=== PATIENT | male | born 1965 | race African-American/Black ===

== ENCOUNTER 2017-12-27 22:29 | Inpatient (IN) | payer OTHER ==
[2017-12-27 23:14] LABS: Absolute Lymphocytes (CBC) 2.3 K/uL (0.7-4.9); Absolute Monocytes 0.7 K/uL (0.1-1.3); Absolute Neutrophil 3.4 K/uL (1.8-8.0); Basophils % 0.6 % (0-1.3); Eosinophils % 1.6 % (0-4.4); Hematocrit 43.3 % (39.6-49.0); Lymphocytes % 35.5 % (15.3-44.8); MCH 25.3 pg (27.0-35.0); MCV 77.8 fL (80-100); MPV 8.9 fL (7.6-11.3); Monocytes % 10.3 % (3.3-12.3); RBC Red Blood Cell Count 5.57 M/uL (4.33-5.43)
[2017-12-27] MEDS ORDERED: cloNIDine HCl 0.1 MG TAB ONE (23:22)
[2017-12-27 23:36] LABS: Albumin 3.9 g/dL (3.2-5.5); Bilirubin Direct 0.1 mg/dL (0-0.2); Bilirubin Total 0.6 mg/dL (0.3-1.2); Magnesium 1.9 mg/dL (1.8-2.5)
[2017-12-27 23:41] LABS: Potassium 2.7 mEq/L (3.6-5.0)
[2017-12-27] MEDS ORDERED: NA CHLORIDE 0.9% 1,000 ML ONE (23:53)
[2017-12-27] MEDS ORDERED: LABETALOL 20 MG/4ML SYRINGE IV ONE (23:53)
[2017-12-28] MEDS ORDERED: POTASSIUM 25 MEQ EFFERV TAB ONE (00:05)
--- NOTE | 2017-12-28 02:52 | EDPHYS ---
Physician Documentation [facility] Name: Bryan Watts Age: 52 yrs Sex: Male : 1965 Arrival Date: 12/27/2017 Time: 22:30 Bed 13 Private MD: ED Physician Joshua Rutledge HPI: 12/28 03:29 This 52 yrs old Black Male presents to ER via Ambulatory with complaints of Chest Pain, pm1 Headache, High Blood Pressure. 03:29 The patient or guardian reports chest pain that is located primarily in the substernal pm1 area. Onset: at 12:00. The pain does not radiate. Associated signs and symptoms: Pertinent positives: diaphoresis, headache, Pertinent negatives: abdominal pain, cough, nausea, shortness of breath, vomiting. The chest pain is described as aching. Duration: The patient or guardian reports multiple episodes, that have now resolved. Modifying factors: the symptoms are aggravated by exertion. Severity of pain: in the emergency department the pain is a 0 / 10. The patient has experienced similar episodes in the past, several times. The patient has not recently seen a physician. Patient with history of 8 total stents. Reports last placement in 1998. Historical: - Allergies: 12/27 22:44 No Known Allergies; ao - Home Meds: 22:44 amlodipine 10 mg tab 1 tab once daily [Active]; atorvastatin 80 mg Oral tab 1 tab once ao daily [Active]; carvedilol 25 mg Oral tab 1 tab 2 times per day [Active]; lisinopril 20 mg Oral tab 1 tab twice a day [Active]; hydralazine 100 mg Oral tab 1 tab 4 times per day [Active]; - PMHx: 22:44 Diabetes - IDDM; Hyperlipidemia; Hypertension; ao - PSHx: 22:44 None; ao - Immunization history:: Adult Immunizations up to date. - Social history:: Smoking status: Patient/guardian denies using tobacco, Patient/guardian denies using alcohol, street drugs. - Ebola Screening: : Patient negative for fever greater than or equal to 101.5 degrees Fahrenheit, and additional compatible Ebola Virus Disease symptoms Patient denies exposure to infectious person Patient denies travel to an Ebola-affected area in the 21 days before illness onset. ROS: 12/28 03:29 Constitutional: Negative for fever, chills, and weight loss, Eyes: Negative for injury, pm1 pain, redness, and discharge, ENT: Negative for injury, pain, and discharge, Neck: Negative for injury, pain, and swelling. Respiratory: Negative for shortness of breath, cough, wheezing, and pleuritic chest pain, Abdomen/GI: Negative for abdominal pain, nausea, vomiting, diarrhea, and constipation, Back: Negative for injury and pain, MS/Extremity: Negative for injury and deformity, Skin: Negative for injury, rash, and discoloration. Cardiovascular: Positive for chest pain, Negative for edema, orthopnea, palpitations. Neuro: Positive for headache, Negative for gait disturbance, seizure activity, weakness. Exam: 03:29 Constitutional: This is a well developed, well nourished patient who is awake, alert, pm1 and in no acute distress. Head/Face: Normocephalic, atraumatic. Eyes: Pupils equal round and reactive to light, extra-ocular motions intact. Lids and lashes normal. Conjunctiva and sclera are non-icteric and not injected. Cornea within normal limits. Periorbital areas with no swelling, redness, or edema. ENT: Nares patent. No nasal discharge, no septal abnormalities noted. Tympanic membranes are normal and external auditory canals are clear. Oropharynx with no redness, swelling, or masses, exudates, or evidence of obstruction, uvula midline. Mucous membranes moist. Neck: Trachea midline, no thyromegaly or masses palpated, and no cervical lymphadenopathy. Supple, full range of motion without nuchal rigidity, or vertebral point tenderness. No Meningismus. Chest/axilla: Normal chest wall appearance and motion. Nontender with no deformity. No lesions are appreciated. 03:29 Respiratory: Lungs have equal breath sounds bilaterally, clear to auscultation and percussion. No rales, rhonchi or wheezes noted. No increased work of breathing, no retractions or nasal flaring. Abdomen/GI: Soft, non-tender, with normal bowel sounds. No distension or tympany. No guarding or rebound. No evidence of tenderness throughout. Back: No spinal tenderness. No costovertebral tenderness. Full range of motion. Skin: Warm, dry with normal turgor. Normal color with no rashes, no lesions, and no evidence of cellulitis. MS/ Extremity: Pulses equal, no cyanosis. Neurovascular intact. Full, normal range of motion. 03:29 Cardiovascular: Rate: normal, Rhythm: Pulses: 03:29 Neuro: Orientation: is normal, Motor: is normal, moves all fours. Vital Signs: 12/27 22:42 BP 210 / 127; Pulse 98; Resp 22; Temp 98.0(O); Pulse Ox 98% on R/A; Weight 150.59 kg ao (R); Height 6 ft. (182.88 cm); Pain 8/10; 23:15 BP 183 / 119; Pulse 96; Resp 14; Pulse Ox 96% on R/A; bp 12/28 00:00 BP 191 / 117; Pulse 86; Resp 16; Pulse Ox 96% ; bp 01:00 BP 147 / 107; Pulse 86; Resp 14; Pulse Ox 96% ; bp 02:15 BP 148 / 101; Pulse 81; Resp 16; Pulse Ox 96% on R/A; bp 03:21 BP 136 / 91; Pulse 82; Resp 14; Pulse Ox 95% ; bp 04:30 BP 163 / 113; Pulse 77; Resp 16; Pulse Ox 97% ; bp 05:30 BP 151 / 112; Pulse 78; Resp 14; Pulse Ox 97% ; bp 12/27 22:42 Body Mass Index 45.03 (150.59 kg, 182.88 cm) ao MDM: 12/27 22:43 Patient medically screened. pm1 12/28 02:49 Data reviewed: vital signs. Data interpreted: Pulse oximetry: on room air is 96 %. pm1 Interpretation: normal. Counseling: I had a detailed discussion with the patient and/or guardian regarding: the historical points, exam findings, and any diagnostic results supporting the discharge/admit diagnosis, lab results, radiology results, the need for further work-up and treatment in the hospital. 03:05 ED course: Patient with report of chest pain at rest while in bed. EKG repeated and ST pm1 changes present to leads V1 and V2. 03:20 ED course: Patient chest pain free after nitro sl x 1. pm1 03:22 Physician consultation: Silviano Grimes MD was called at 03:22, was contacted at 03:22, pm1 regarding consult, patient's condition, would like medications started, Lovenox Renal dosage. No plavix and he will see him in a few hours today. 03:28 Physician consultation: Yared Larios MD was called at 03:29, was contacted at 03:29, pm1 regarding admission, patient's condition. 12/27 22:48 Order name: Basic Metabolic Panel; Complete Time: 23:45 pm1 12/27 22:48 Order name: BNP; Complete Time: 23:38 pm1 12/27 22:48 Order name: CBC with Diff; Complete Time: 23:38 pm1 12/27 22:48 Order name: Ckmb; Complete Time: 23:45 pm1 12/27 22:48 Order name: CPK; Complete Time: 23:45 pm1 12/27 22:48 Order name: LFT's; Complete Time: 23:45 pm1 12/27 22:48 Order name: Magnesium; Complete Time: 23:45 pm12/27 22:48 Order name: PT-INR; Complete Time: 23:38 pm1 12/27 22:48 Order name: Ptt, Activated; Complete Time: 23:38 pm12/27 22:48 Order name: Troponin (emerg Dept Use Only); Complete Time: 23:38 pm12/27 22:48 Order name: XRAY Chest (1 view) pm12/27 22:49 Order name: CT Head Brain wo Cont pm12/28 00:10 Order name: CT Aorta for Dissection 12/27 22:48 Order name: EKG; Complete Time: 22:48 pm1 12/27 22:48 Order name: Cardiac monitoring; Complete Time: 22:48 pm1 12/27 22:48 Order name: EKG - Nurse/Tech; Complete Time: 22:48 pm12/27 22:48 Order name: IV Saline Lock; Complete Time: 23:17 pm12/27 22:48 Order name: Labs collected and sent; Complete Time: 23:17 pm1 12/27 22:48 Order name: O2 Per Protocol; Complete Time: 22:48 pm12/27 22:48 Order name: O2 Sat Monitoring; Complete Time: 22:48 pm1 Administered Medications: 12/27 23:23 Drug: cloNIDine 0.2 mg Route: PO; bp 23:58 Follow up: Response: No adverse reaction bp 23:56 Drug: Labetalol 20 mg Route: IVP; Infused Over: 2 mins; Site: right antecubital; bp 23:57 Follow up: Response: No adverse reaction bp 23:57 Drug: NS 0.9% 1000 ml Route: IV; Rate: 1 bolus; Site: right antecubital; bp 12/28 03:20 Follow up: IV Status: Completed infusion; IV Intake: 1000ml bp 00:18 Drug: Potassium Effervescent Tablet 50 mEq Route: PO; bp 00:19 Follow up: Response: No adverse reaction bp 03:19 Drug: Aspirin 325 mg Route: PO; bp 03:20 Follow up: Response: No adverse reaction bp 03:19 Drug: Nitroglycerin 0.4 mg Route: Sublingual; bp 03:20 Follow up: Response: Pain is decreased bp 03:37 Drug: Lovenox 100 mg Route: Sub-Q; Site: right lower abdomen; bp 03:37 Follow up: Response: No adverse reaction bp Disposition: 12/28/17 02:51 Hospitalization ordered by Yared Larios for Observation. Preliminary diagnosis are Chest pain, unspecified, Hypokalemia, Rhabdomyolysis. - Bed requested for Telemetry/MedSurg (observation). - Status is Observation. bp - Condition is Stable. - Problem is new. - Symptoms have improved. UTI on Admission? No Addendum: 12/31/2017 09:02 Co-signature as Attending Physician, Joshua Rutledge MD I agree with the assessment and w a plan of care. Signatures: Dispatcher [employer] [facility] Krystina Mckeon RN RN mw Ortiz, Alex RN Myron Cantu, OPHTHALMIC ASST OPHTHALMIC ASST pm1 Joshua Rutledge MD MD wa Peltier, Brian RN RN bp Corrections: (The following items were deleted from the chart) 12/28 00:17 12/27 23:54 Chest Angio+CT.RAD.BRZ ordered. [facility] 12/28 02:56 02:51 Hospitalization Ordered by Yared Larios MD for Observation. Preliminary mw diagnosis is Chest pain, unspecified; Hypokalemia; Rhabdomyolysis. Bed requested for Telemetry/MedSurg (observation). Status is Observation. Condition is Stable. Problem is new. Symptoms have improved. UTI on Admission? No. pm1 05:45 02:56 12/28/2017 02:51 Hospitalization Ordered by Yared Larios MD for Observation. bp Preliminary diagnosis is Chest pain, unspecified; Hypokalemia; Rhabdomyolysis. Bed requested for Telemetry/MedSurg (observation). Status is Observation. Condition is Stable. Problem is new. Symptoms have improved. UTI on Admission? No. mw
--- NOTE | 2017-12-28 02:52 | ER ---
Nurse's Notes [facility] Name: Bryan Watts Age: 52 yrs Sex: Male : 1965 Arrival Date: 12/27/2017 Time: 22:30 Bed 13 Private MD: Diagnosis: Chest pain, unspecified;Hypokalemia;Rhabdomyolysis Presentation: 12/27 22:40 Presenting complaint: Patient states: "I was at home and my blood pressure was 220/146 ao then my chest started to hurt and I got a headache." Patient also reports being diaphoretic. Transition of care: patient was not received from another setting of care. Onset of symptoms was December 27, 2017 at 20:00. Risk Assessment: Do you want to hurt yourself or someone else? Patient reports no desire to harm self or others. Initial Sepsis Screen: Does the patient meet any 2 criteria? No. Patient's initial sepsis screen is negative. Does the patient have a suspected source of infection? No. Patient's initial sepsis screen is negative. Care prior to arrival: None. 22:40 Method Of Arrival: Ambulatory ao 22:40 Acuity: GABBY 3 ao Triage Assessment: 22:46 General: Appears in no apparent distress. Behavior is calm, cooperative. Pain: ao Complains of pain in chest and headache. Cardiovascular: Patient's skin is warm and dry. Historical: - Allergies: 22:44 No Known Allergies; ao - Home Meds: 22:44 amlodipine 10 mg tab 1 tab once daily [Active]; atorvastatin 80 mg Oral tab 1 tab once ao daily [Active]; carvedilol 25 mg Oral tab 1 tab 2 times per day [Active]; lisinopril 20 mg Oral tab 1 tab twice a day [Active]; hydralazine 100 mg Oral tab 1 tab 4 times per day [Active]; - PMHx: 22:44 Diabetes - IDDM; Hyperlipidemia; Hypertension; ao - PSHx: 22:44 None; ao - Immunization history:: Adult Immunizations up to date. - Social history:: Smoking status: Patient/guardian denies using tobacco, Patient/guardian denies using alcohol, street drugs. - Ebola Screening: : Patient negative for fever greater than or equal to 101.5 degrees Fahrenheit, and additional compatible Ebola Virus Disease symptoms Patient denies exposure to infectious person Patient denies travel to an Ebola-affected area in the 21 days before illness onset. Screenin:45 Abuse screen: Denies threats or abuse. Denies injuries from another. Nutritional ao screening: No deficits noted. Tuberculosis screening: No symptoms or risk factors identified. Fall Risk None identified. Assessment: 22:47 Pain: Pain does not radiate. Pain began 3 hours ago. ao 23:00 General: Appears in no apparent distress. comfortable, obese, Behavior is cooperative, bp appropriate for age, anxious. Neuro: Level of Consciousness is awake, alert, obeys commands, Oriented to person, place, time, situation, Appropriate for age. Cardiovascular: Chest pain is described as mild, quality is heaviness, is located in substernal area began 4 hours prior to arrival episodes are intermittent. Respiratory: Airway is patent Respiratory effort is even, unlabored, Respiratory pattern is regular, symmetrical. GI: No signs and/or symptoms were reported involving the gastrointestinal system. : No signs and/or symptoms were reported regarding the genitourinary system. EENT: No deficits noted. Derm: No deficits noted. Musculoskeletal: Circulation, motion, and sensation intact. Range of motion: intact in all extremities. 12/28 00:00 Reassessment: CT PENDING, ABNORMAL LABS RELAYED TO PROVIDER. bp 01:00 Reassessment: PT RETURNED FROM CT, ALL CURRENT ORDERS COMPLETED, RESULTS PENDING. bp 03:21 Reassessment: PT C/O ACUTE CP, AFFIRMS RELIEF OF S/S WITH NGT SL. bp 04:30 Reassessment: ADMIT IN PROCESS, AWAITING ADMIT MD AND ORDERS. PT CP FREE AT THIS TIME. bp 05:44 Reassessment: ADMIT COMPLETE, PT IRAJ FOR 206, DX WITH HYPOKALEMIA, CHEST PAIN AND bp RHABDOMYOLYSIS. Vital Signs: 12/27 22:42 BP 210 / 127; Pulse 98; Resp 22; Temp 98.0(O); Pulse Ox 98% on R/A; Weight 150.59 kg ao (R); Height 6 ft. (182.88 cm); Pain 8/10; 23:15 BP 183 / 119; Pulse 96; Resp 14; Pulse Ox 96% on R/A; bp 12/28 00:00 BP 191 / 117; Pulse 86; Resp 16; Pulse Ox 96% ; bp 01:00 BP 147 / 107; Pulse 86; Resp 14; Pulse Ox 96% ; bp 02:15 BP 148 / 101; Pulse 81; Resp 16; Pulse Ox 96% on R/A; bp 03:21 BP 136 / 91; Pulse 82; Resp 14; Pulse Ox 95% ; bp 04:30 BP 163 / 113; Pulse 77; Resp 16; Pulse Ox 97% ; bp 05:30 BP 151 / 112; Pulse 78; Resp 14; Pulse Ox 97% ; bp 12/27 22:42 Body Mass Index 45.03 (150.59 kg, 182.88 cm) ao ED Course: 12/27 22:30 Patient arrived in ED. al2 22:37 Sha Araujo, RN is Primary Nurse. bp 22:42 Triage completed. ao 22:42 Arm band placed on right wrist. Patient placed in an exam room, on a stretcher, on ao oxygen, on quality assurance monitor, on pulse oximetry, Patient notified of wait time. 22:43 Myron Ambrosio NP is PHCP. pm1 22:43 Joshua Rutledge MD is Attending Physician. pm1 22:46 Patient has correct armband on for positive identification. quality assurance monitor on. Pulse ao ox on. NIBP on. 22:47 Patient maintains SpO2 saturation greater than 95% on room air. ao 23:02 XRAY Chest (1 view) In Process Unspecified. EDMS 23:18 Inserted saline lock: 20 gauge in right antecubital area, using aseptic technique. bp Blood collected. 12/28 01:14 CT completed. Patient tolerated procedure well. Patient moved to CT via wheelchair. Patient moved back from CT. 01:23 CT Head Brain wo Cont In Process Unspecified. EDMS 01:24 CT Aorta for Dissection In Process Unspecified. EDMS 02:50 Yared Larios MD is Hospitalizing Provider. pm1 03:22 No provider procedures requiring assistance completed. Patient admitted, IV remains in bp place. Administered Medications: 12/27 23:23 Drug: cloNIDine 0.2 mg Route: PO; bp 23:58 Follow up: Response: No adverse reaction bp 23:56 Drug: Labetalol 20 mg Route: IVP; Infused Over: 2 mins; Site: right antecubital; bp 23:57 Follow up: Response: No adverse reaction bp 23:57 Drug: NS 0.9% 1000 ml Route: IV; Rate: 1 bolus; Site: right antecubital; bp 12/28 03:20 Follow up: IV Status: Completed infusion; IV Intake: 1000ml bp 00:18 Drug: Potassium Effervescent Tablet 50 mEq Route: PO; bp 00:19 Follow up: Response: No adverse reaction bp 03:19 Drug: Aspirin 325 mg Route: PO; bp 03:20 Follow up: Response: No adverse reaction bp 03:19 Drug: Nitroglycerin 0.4 mg Route: Sublingual; bp 03:20 Follow up: Response: Pain is decreased bp 03:37 Drug: Lovenox 100 mg Route: Sub-Q; Site: right lower abdomen; bp 03:37 Follow up: Response: No adverse reaction bp Intake: 03:20 IV: 1000ml; Total: 1000ml. bp Outcome: 02:51 Decision to Hospitalize by Provider. pm1 05:40 Admitted to Tele accompanied by tech, via wheelchair, room 206, with chart, Report bp called to RA BAKER 05:40 Condition: stable 05:40 Instructed on the need for admit. 05:45 Patient left the ED. bp Signatures: Dispatcher [employer] EDMS Diallo Wilson Alex, RN RN Myron Funez, BALCONY WORKER BALCONY WORKER pm1 Sha Araujo RN RN bp Love, Angelica al2 Corrections: (The following items were deleted from the chart) 01:08 00:00 BP 131 / 117; Pulse 86bpm; Resp 16bpm; Pulse Ox 96%; bp bp 04:45 04:43 Reassessment: ADMIT IN PROCESS, AWAITING ADMIT MD AND ORDERS. PT CP FREE AT THIS bp TIME bp
[2017-12-28] MEDS ORDERED: ASPIRIN 325 MG TAB ONE (03:08)
[2017-12-28] MEDS ORDERED: ENOXAPARIN 100 MG/ML SYR SQ ONE (03:35)
[2017-12-28] MEDS ORDERED: ACETAMINOPHEN 500 MG TAB PO PRN (04:06)
[2017-12-28] MEDS ORDERED: MORPHINE 4 MG/ML SYR IV PRN (04:06)
[2017-12-28] MEDS ORDERED: ALPRAZOLAM 0.25 MG TABLET PO PRN (04:06)
--- NOTE | 2017-12-28 07:57 | P.HP ---
Certification for Inpatient Patient admitted to: Observation With expected LOS: <2 Midnights Patient will require the following post-hospital care: None Practitioner: I am a practitioner with admitting privileges, knowledge of patient current condition, hospital course, and medical plan of care. Services: Services provided to patient in accordance with Admission requirements found in Title 42 Section 412.3 of the Code of Federal Regulations Patient History Date of Service: 12/28/17 Reason for admission: Chest pain rule out acute coronary syndrome History of Present Illness: Patient is a 52-year-old gentleman who came to the hospital with chest pain and elevated blood pressure. Patient's pain was in the sternal region but he denies any radiation. However, he did have diaphoresis as well as nausea and vomiting. Patient was also short of breath. Patient had pain like this in the past and he has had a history of coronary artery disease with stent placement x8. Patient states his chest pain is resolved. He was having an in the sternal region and it was some reproducible but it is completely gone after medicine in the emergency room. Patient does have mild numerous risk factors so will go ahead and monitor him overnight. We will do serial troponins as well as an EKG in the morning. If there is no significant change in patient's status and his chest pain is no longer occurring then we will be able to discharge him home later today. Allergies No Known Drug Allergies Allergy (Verified 12/28/15 04:34) Unknown Home Medications: Aspirin 81 mg PO DAILY 01/28/12 Amlodipine Besylate 10 mg PO DAILY 05/27/12 Atorvastatin Calcium [Lipitor*] 80 mg PO BEDTIME 10/18/15 Carvedilol [Coreg*] 25 mg PO BID 10/18/15 Hydrochlorothiazide [Hydrodiuril*] 25 mg PO DAILY 10/18/15 Metformin HCl [Glucophage*] 500 mg PO BID 10/18/15 Nitroglycerin 0.4 mg SL PRN 10/19/15 Ciprofloxacin HCl [Cipro 500 MG Tablet] 500 mg PO BID #20 tab 11/27/15 Metronidazole 500 mg PO TID #30 tablet 11/27/15 Hydralazine [Apresoline*] 100 mg PO QID 01/28/17 Lisinopril [Prinivil*] 20 mg PO BID 01/28/17 Doxazosin [Cardura*] 2 mg PO BID #60 tab 01/29/17 Furosemide [Lasix] 40 mg PO DAILY #30 tab 01/29/17 Potassium Chloride 20 meq PO BID #60 tab.er.prt 01/29/17 - Past Medical/Surgical History Has patient received pneumonia vaccine in the past: No Diabetic: Yes -: DM -: HTN -: CAD -: Coronary artery stent -: RIGHT KNEE SX -: ARTIFICIAL LEFT EYE -: Cardiac catherization with stent - Family History Father Medical History: Heart disease, Hypertension - Social History Smoking Status: Never smoker Alcohol use: No CD- Drugs: No Caffeine use: Yes Place of Residence: Home Review of Systems 10-point ROS is otherwise unremarkable Physical Examination - Vital Signs Temperature: 97.8 F Blood Pressure: 132/81 Pulse: 77 Respirations: 16 Pulse Ox (%): 98 - Physical Exam General: Alert, In no apparent distress, Oriented x3 HEENT: Atraumatic, PERRLA, Mucous membr. moist/pink, EOMI, Sclerae nonicteric Neck: Supple, 2+ carotid pulse no bruit, No LAD, Without JVD or thyroid abnormality Respiratory: Clear to auscultation bilaterally, Normal air movement Cardiovascular: Regular rate/rhythm, Normal S1 S2, No murmurs Gastrointestinal: Normal bowel sounds, Soft and benign, Non-distended, No tenderness Musculoskeletal: No clubbing, No swelling, No tenderness Integumentary: No rashes Neurological: Normal gait, Normal speech, Normal strength at 5/5 x4 extr, Normal tone, Sensation intact, Cranial nerves 3-12 intact, Normal affect Lymphatics: No axilla or inguinal lymphadenopathy - Studies Laboratory Data (last 24 hrs) 12/27/17 23:03: PT 11.8, INR 1.00, APTT 26.5 12/27/17 23:03: WBC 6.5, Hgb 14.1, Hct 43.3, Plt Count 204 12/27/17 23:03: B-Natriuretic Peptide 38 12/27/17 23:03: Sodium 140, Potassium 2.7 L*, BUN 19, Creatinine 1.49 H, Glucose 94, Magnesium 1.9, Total Bilirubin 0.6, AST 33, ALT 28, Alkaline Phosphatase 59 Assessment & Plan - Problems (Diagnosis) (1) Chest pain, rule out acute myocardial infarction Current Visit: Yes Status: Acute (2) DM2 (diabetes mellitus, type 2) Onset Date: 01/28/17 Current Visit: No Status: Acute (3) HTN (hypertension) Onset Date: 01/28/17 Current Visit: No Status: Acute (4) Hyperlipidemia Onset Date: 11/26/15 Current Visit: No Status: Acute (5) CAD (coronary artery disease) Current Visit: No Status: Chronic Qualifiers: (6) Diabetes mellitus type II, non insulin dependent Onset Date: 11/26/15 Current Visit: No Status: Chronic (7) Morbid obesity due to excess calories Current Visit: No Status: Chronic - Plan 1. Serial troponins and EKG 2. Cardiology consultation 3. Echocardiogram and if no significant abnormality then further workup at discharge 4. Anti-platelet therapy, anticoagulation, beta-brii, statin, and O2 as needed 5. IV morphine for pain 6. Nitro p.r.n. Discharge Plan: Home Plan to discharge in: 24 Hours - Advance Directives Does patient have a Living Will: No Does patient have a Durable POA for Healthcare: No - Code Status/Comfort Care Code Status Assessed: Yes Code Status: Full Code Critical Care: No Time Spent Managing PTS Care (In Minutes): 50
--- NOTE | 2017-12-28 08:50 | RAD REPORT ---
EXAM DESCRIPTION: RAD - Chest Single View - 12/27/2017 11:02 pm CLINICAL HISTORY: Chest pain, hypertension COMPARISON: January 2017 TECHNIQUE: AP portable chest image was obtained 2300 hours . FINDINGS: No acute lung parenchymal process. Left base is limited by body habitus, portable techniqu e and motion. Significant left base finding is doubtful. No failure or volume overload. Heart and vas culature are normal. No measurable pleural effusion and no pneumothorax. No gross bony abnormality se en. No acute aortic findings suspected. IMPRESSION: No acute cardiopulmonary process. No significant change from comparison.
--- NOTE | 2017-12-28 09:02 | RAD REPORT ---
EXAM DESCRIPTION: CT - Head Brain Wo Cont - 12/28/2017 3:15 am CLINICAL HISTORY: Headache, hypertension A preliminary written report was provided at the time of the study, and the report was reviewed prio r to final dictation. COMPARISON: September 23, 2017 TECHNIQUE: Axial 5 mm thick images of the head were obtained without IV contrast. All CT scans are performed using dose optimization technique as appropriate and may include automated exposure control or mA/KV adjustment according to patient size. FINDINGS: No intracranial hemorrhage, mass, edema or shift of mid-line structures. No acute cortical based infarction. No cortical edema or sulcal effacement. Cerebral white matter disease is present s imilar to the prior study. Ventricles are normal. No abnormal extra-axial fluid collections. Intracra nial findings are similar to comparison. Mastoid air cells and visualized portions of the paranasal sinuses are clear. No acute bony findings. Left globe prosthesis in place. IMPRESSION: Advanced for age white matter disease most likely chronic ischemic change. No acute intracranial finding seen and intracranial findings are similar to the September comparison.
--- NOTE | 2017-12-28 09:11 | RAD REPORT ---
EXAM DESCRIPTION: CT - Angio Aorta For Dissection - 12/28/2017 3:19 am CLINICAL HISTORY: Chest pain, abdominal pain COMPARISON: CT study 2011 TECHNIQUE: Dynamically enhanced 3 mm thick images of the chest, abdomen, and upper pelvis were obtai carlito during administration of approximately 150mL Isovue 370 IV contrast. Sagittal and coronal reconst ruction images were generated and reviewed. Exam utilizes a protocol to evaluate entire course of the aorta. All CT scans are performed using dose optimization technique as appropriate and may include automated exposure control or mA/KV adjustment according to patient size. FINDINGS: Aorta is normal in diameter with no dissection or other acute aortic findings. Reconstruct ion images show no significant findings. Pulmonary arteries are normal as well. No cardiomegaly, pericardial thickening or pericardial effusio n. No mass or infiltrate in the lung parenchyma. No pleural thickening, pleural effusion or pneumothorax . No abnormal mediastinal or hilar mass or lymphadenopathy seen. No chest wall mass or abnormal axillar y lymphadenopathy. Celiac, SMA and renal arteries show no suspicious findings. No acute finding of the solid abdominal v isceral. Patient has a prominent sigmoid diverticulosis. There is a trace amount of stranding in the fat adjacent to the tortuous sigmoid colon. Finding is not definitive for diverticulitis. Patient can be monitored with follow-up imaging as warranted. No mass or abnormal lymphadenopathy. No free air, free fluid or other area of possible inflammatory stranding. It is very small umbilical and bilatera l inguinal fat only hernias seen. Urinary bladder is contracted limiting detail. Thoracolumbar scoliosis present without acute bone finding. IMPRESSION: No dissection, aneurysm or acute aortic finding. No acute finding on CT chest imaging. Prominent diverticulosis of a tortuous and redundant sigmoid colon. Trace stranding is seen in the ad jacent fat. Early diverticulitis is doubtful but can be correlated with clinical findings.
[2017-12-28] MEDS: ENOXAPARIN 40 MG/0.4 ML SQ SCH (09:39)
[2017-12-28] MEDS: METOPROLOL TAR 50 MG TAB PO SCH ×2 (09:39→20:27)
[2017-12-28] MEDS: ASPIRIN 325 MG TAB PO SCH (09:39)
[2017-12-28 09:58] LABS: Urine Appearance CLEAR; Urine Bilirubin NEGATIVE (NEG); Urine Blood NEGATIVE (NEG); Urine Color YELLOW; Urine Glucose NEGATIVE (NEG); Urine Protein 2+ (NEG); Urine Specific Gravity >=1.030 (1.005-1.030); Urine pH 5.5 (5.0-7.0)
[2017-12-28 10:40] LABS: Urine Bacteria <20 /HPF (NONE SEEN); Urine Culture Reflex Order NOT NEEDED; Urine Microscopic Reflex ORDER UMIC; Urine RBC <5 /HPF (NONE SEEN)
[2017-12-28 11:08] LABS: Absolute Lymphocytes (CBC) 2.1 K/uL (0.7-4.9); Absolute Monocytes 0.5 K/uL (0.1-1.3); Absolute Neutrophil 2.4 K/uL (1.8-8.0); Basophils % 0.7 % (0-1.3); Eosinophils % 1.4 % (0-4.4); Hematocrit 40.3 % (39.6-49.0); Lymphocytes % 40.7 % (15.3-44.8); MCH 24.9 pg (27.0-35.0); MCV 78.4 fL (80-100); MPV 8.7 fL (7.6-11.3); Monocytes % 9.9 % (3.3-12.3); RBC Red Blood Cell Count 5.14 M/uL (4.33-5.43)
[2017-12-28 11:34] LABS: Magnesium 1.9 mg/dL (1.8-2.5); Phosphorus 3.8 mg/dL (2.5-4.3); Potassium 3.2 mEq/L (3.6-5.0)
--- NOTE | 2017-12-28 12:44 | EKG ---
Test Date: 2017-12-28 Test Time: 07:57:31 Transcriber: TERENCE MEASUREMENT RESULTS: Intervals: Rate: 69 [place]: 278 QRSD: 122 QT: 486 QTc: 520 [place]: P: 69 [place]: 278 QRS: -41 T: 62 INTERPRETIVE STATEMENTS: Sinus rhythm with 1st degree AV block Left axis deviation Nonspecific intraventricular conduction delay Abnormal ECG Electronically Signed On 12-28-17 12:43:18 CDT by Silviano Grimes Compared to ECG 12/28/2017 03:05:15 Intraventricular conduction delay now present Myocardial infarct finding no longer present Prolonged QT interval no longer present Electronically Signed On 12-29-17 14:59:16 CDT by Silviano Grimes
--- NOTE | 2017-12-28 12:45 | EKG ---
Test Date: 2017-12-28 Test Time: 03:05:15 Forestry Foreman: DASHA MEASUREMENT RESULTS: Intervals: Rate: 82 VT: 252 QRSD: 114 QT: 442 QTc: 516 [place]: P: 61 [place]: 252 QRS: -42 T: 67 INTERPRETIVE STATEMENTS: Sinus rhythm with 1st degree AV block Left axis deviation Pulmonary disease pattern Inferior infarct, age undetermined Prolonged QT Abnormal ECG Electronically Signed On 12-28-17 12:43:25 CDT by Silviano Grimes Compared to ECG 12/27/2017 22:43:03 Prolonged QT interval now present Sinus tachycardia no longer present Myocardial infarct finding still present Electronically Signed On 12-29-17 14:59:17 CDT by Silviano Grimes
--- NOTE | 2017-12-28 13:47 | CON ---
Date of Consultation: 12/28/[address] Larios's service on 12/28/2017. I saw the patient on 12/28/2017. Reason For Consultation: Chest pain, hypertension, and headaches. History Of Present Illness: Mr. Watts is a 52-year-old black male, who has a history of hypertensio n, dyslipidemia, diabetes, and noncompliance to therapy. Had a heart catheterization approximately 2 years ago that showed no significant coronary artery disease, but he stated that since then he has h ad 8 stents placed. The last of which was about a year ago. These were done at [facility] according to the patient. He came in with substernal chest pressure radiating to the jaw and the back and the arms with dyspnea on exertion, headache, and severely controlled blood pressure at home of 220/146. No syncope or palpitations. Denied PND, orthopnea. Has had some pedal edema. Claimed that he is co mpliant with his medicines. Past Medical History: As stated above. Allergies: NONE. Review of Systems: Negative. Social History: Negative. Family History: Noncontributory. Physical Examination: Vital Signs: Improved. His blood pressure was better, was still elevated at 160/84. He was sinus r hythm. HEENT: Negative. Neck: Supple without any bruit, lymphadenopathy, JVD, or thyromegaly. Chest: Clear to auscultation and percussion. Cardiac: Exam revealed a regular rhythm and rate with an S4 gallops. No murmurs or rubs. Abdomen: Obese, but benign. Extremities: Revealed no clubbing, cyanosis. He had 1+ edema. Diagnostic Data: Showed a creatinine 1.49, potassium was 2.7. CPK was 1109, MB was negative. Tropo santos was negative. EKG showed severe left ventricular hypertrophy. Echocardiogram approximately a ye ar ago showed left ventricular hypertrophy. He had a negative Lexiscan then. Impression And Plan: 1.Acute coronary syndrome. Symptoms consistent with unstable angina. According to the patient, he has had some 8 stents placed in the last 2 years, although in 2016, a heart catheterization was luna l. Nevertheless, his symptoms are concerning enough that I think a heart catheterization is indicate d to rule out coronary artery disease. The patient understands the risk and the benefit of the proce dure and he agrees to proceed. 2.Hypokalemia that needs to be corrected. 3.Blood pressure, poorly controlled. We need to make sure he takes his medication. 4.Polypharmacy. I am not so sure he needs to take Lasix and hydrochlorothiazide. He needs to proba chase stop the hydrochlorothiazide that maybe was causing his hypokalemia. His other problems include dyslipidemia and diabetes. Both of those are fairly well controlled. 5.Mr. Watts' other major problem is morbid obesity, he weighs 340 pounds. We will see what his hea rt catheterization shows prior to making final decisions. AMINATA/RIAZ Voice ID: [id number] Report ID: [id number]
--- NOTE | 2017-12-28 14:34 | PN ---
Date of Progress Note: 12/28/2017 Subjective: The patient seen and examined. Chart reviewed and case discussed with RN and Dr. Florinda fitzpatrick. The patient states his chest pain has improved. No nausea, vomiting, or shortness of breath. Review of Systems: Negative except as above. Medications: Reviewed. Physical Examination: Vital Signs: Temperature 98.2, heart rate 74, blood pressure 158/92, respirations 18, O2 92% on room air. General: Awake, alert, oriented x3, in some mild distress. Ill-appearing, obese male. BMI 43. CV: S1, S2. Regular rate and rhythm. Peripheral pulses present. No murmurs. Respiratory: Clear to auscultation bilaterally. No wheezing. No stridor. No use of accessory musc les. Gastrointestinal: Abdomen is soft, nontender, nondistended. Obese. Positive bowel sounds. Extremities: No clubbing, cyanosis, edema. Neurologic: Nonfocal. Laboratory Data: Sodium 138, potassium 3.2, chloride 102, CO2 31, BUN 19, creatinine 1.21, glucose 1 12, calcium 8.5, phosphorus 3.8, magnesium 1.9. Troponin less than 0.03 x2. Triglycerides 188, chol esterol 192, LDL 115, HDL 39. WBC 5.1, H and H 12.8, 40.3, platelets 191. EKG shows sinus rhythm, r ate of 82, first-degree AV block, prolonged QT. Assessment: A 52-year-old male with; 1.Unstable angina. We will continue with chest pain guidelines. Appreciate Dr. Grimes's input. T he patient is going for heart catheterization in a.m. 2.Diabetes mellitus type 2 non-insulin requiring with hyperglycemia. Continue sliding scale. Macrina nue Accu-Cheks. 3.Essential hypertension. Resume home medications as appropriate. 4.Dyslipidemia. Continue statin. 5.Coronary artery disease, mary[place] artery and mary[place] ig[place] heart with angina. 6.Morbid obesity, BMI 43. 7.Hypertensive heart disease. Left ventricular hypertrophy is present. 8.Gastrointestinal and deep venous thrombosis prophylaxis addressed. Plan: Heart catheterization in a.m. SA/MODL Voice ID: [id number] Report ID: [id number]
[2017-12-29] MEDS: METOPROLOL TAR 50 MG TAB PO SCH ×2 (04:00→08:43)
[2017-12-29 05:21] LABS: Potassium 3.6 mEq/L (3.6-5.0)
[2017-12-29 06:35] VITALS: BMI 42.9
[2017-12-29] MEDS: ASPIRIN 325 MG TAB PO SCH (08:43)
[2017-12-29] MEDS: ENOXAPARIN 40 MG/0.4 ML SQ SCH (08:50)
[2017-12-29] MEDS ORDERED: ACETYLCYST 20% 800 MG/4 ML VIAL PO SCH (09:00)
[2017-12-29] MEDS ORDERED: LIDOCAINE 1% 20 ML MDV ONE (14:11)
[2017-12-29] MEDS ORDERED: HEPA 1000U/500MLS 1,000 UNIT/500 ML BAG IV ONE (14:11)
[2017-12-29] MEDS ORDERED: NA CHLORIDE 0.9% 0 ML ONE (14:12)
[2017-12-29] MEDS ORDERED: MIDAZOLAM HCL 2 MG/2 ML INJ ONE (14:12)
[2017-12-29] MEDS ORDERED: FENTANYL CITR 100 MCG/2 ML ONE (14:12)
[2017-12-29] MEDS ORDERED: NA CHLORIDE 0.9% 500 ML ONE (14:13)
[2017-12-29] MEDS ORDERED: cloNIDine HCl 0.1 MG TAB ONE (14:34)
--- NOTE | 2017-12-29 15:01 | EKG ---
Test Date: 2017-12-29 Test Time: 09:35:07 Sourcing Assistant: REYNALDO MEASUREMENT RESULTS: Intervals: Rate: 71 VT: 254 QRSD: 126 QT: 458 QTc: 497 [place]: P: 76 [place]: 254 QRS: 42 T: 70 INTERPRETIVE STATEMENTS: Sinus rhythm with 1st degree AV block Nonspecific intraventricular block Abnormal ECG Compared to ECG 12/28/2017 07:57:31 Left-axis deviation no longer present Intraventricular conduction delay no longer present Electronically Signed On 12-29-17 14:59:04 CDT by Silviano Grimes
--- NOTE | 2017-12-29 15:03 | EKG ---
Test Date: 2017-12-27 Test Time: 22:43:03 Accounts Payable Payroll Coordinator: BP MEASUREMENT RESULTS: Intervals: Rate: 101 MO: 212 QRSD: 120 QT: 366 QTc: 474 [place]: P: 77 [place]: 212 QRS: -36 T: 70 INTERPRETIVE STATEMENTS: Sinus tachycardia with 1st degree AV block Possible Left atrial enlargement Left axis deviation RSR' or QR pattern in V1 suggests right ventricular conduction delay Possible Inferior infarct, age undetermined Abnormal ECG Electronically Signed On 12-28-17 12:43:36 CDT by Silviano Grimes Compared to ECG 09/23/2017 13:18:50 Left-axis deviation now present RSR' in V1 or V2 now present Sinus rhythm no longer present Left anterior fascicular block no longer present Left ventricular hypertrophy no longer present Myocardial infarct finding still present Electronically Signed On 12-29-17 14:59:18 CDT by Silviano Grimes
[2017-12-29 15:40] VITALS: TEMP 97
[2017-12-29 16:24] VITALS: BP 172/92; O2SAT 95
--- NOTE | 2017-12-30 02:49 | DS ---
Date of Discharge: 12/29/2017 Consultants: Dr. Grimes, Cardiology. Procedures: On 12/29/2017, cardiac catheterization, no stents placed. Admitting Diagnoses: 1.Chest pain, unstable angina. 2.Diabetes mellitus type 2. 3.Essential hypertension. 4.Hyperlipidemia. 5.Coronary artery disease. 6.Diabetes mellitus type 2, non-insulin dependent. 7.Morbid obesity. Discharge Diagnoses: 1.Unstable angina. Cardiac catheterization negative for any acute blockage. 2.Diabetes mellitus type 2, non-insulin requiring, with hyperglycemia. 3.Essential hypertension, stable. 4.Dyslipidemia, on statin. 5.Coronary artery disease in [place] artery and [place] heart with angina. 6.Morbid obesity. BMI of 43. 7.Hypertensive heart disease with left ventricular hypertrophy. Hospital Course: The patient is a 52-year-old male with history of coronary artery disease, comes in with chest pain and uncontrolled blood pressure. The patient's initial troponin and EKG did not karen w any significant changes, did have some hypokalemia which was replaced. The patient was started on chest pain guidelines. Dr. Grimes with Cardiology was consulted. The patient was then taken for [facility] catheterization and does not have any stents as he mentioned previously and has had a normal he [place] catheterization 2 years ago. The patient's medications were adjusted. His hydrochlorothiazide w as stopped, which is likely cause of hypokalemia. The patient otherwise needs to lose significant am ount of weight given his BMI and recommended bariatric surgery. The patient did well. His chest priscila n resolved. He did not have any further episodes after the heart catheterization with no stent place ment. The patient was cleared for discharge from Cardiology standpoint. He is to follow up with his grain trader in 2 weeks. Return to ER for worsening condition. Followup: Follow up with primary care physician in 2-3 days. Hold metformin for 48 hours post matthew terization. Diet: Diabetic diet. Activity: As tolerated. Medications: As per medication reconciliation list. Physical Examination: General: Awake, alert, oriented, in no acute distress. CV: S1, S2. No murmurs. Respiratory: Moving air well bilaterally. Abdomen: Abdomen is soft, nontender, and nondistended. Positive bowel sounds. Extremities: No clubbing, cyanosis, or edema. Neurologic: Nonfocal. Total time spent discharging the patient was 37 minutes. SA/MODL Voice ID: [id number] Report ID: [id number]
--- NOTE | 2017-12-30 11:55 | OP ---
Surgeon: Silviano Grimes MD Professor Of Apologetics: Jayne Hdez. Procedure: Left heart catheterization, selective coronary arteriogram. Indication: History of coronary artery disease and unstable angina. Procedure In Detail: The patient was brought to the orthodontic laboratory technician as an inpatient because of unstable ang bc. He was prepped and draped in the routine sterile fashion. Given 2 mg of Versed for IV sedation . A 6-Norwegian sheath was introduced in the right common femoral artery. A 6-Norwegian Joel catheter was used to do the diagnostic angiogram. I found Mr. Watts to have no evidence of stents before, al though he stated he has had 8 stents in the past. He had practically normal coronaries except for mi nor plaquing in the ostium of the ramus. Angiogram of the common femoral artery was normal and Angio -Seal was used to close the case. The patient tolerated the procedure well. There was no complicati on. Estimated Blood Loss: 5 cc. Final Diagnoses: Chest pain. Normal coronaries. No stents. The patient was given Mucomyst after t he procedure because of renal insufficiency. Total Conscious Sedation: 30 minutes. Plan: Continue medical therapy for blood pressure. AMINATA/RIAZ Voice ID: [id number] Report ID: [id number]
== END 2017-12-29 18:00 | disposition home or self-care (01) | DRG 287 ==
LOC: ER 22:29 → ERHOLD 12-28 03:45 → 2ND 12-28 04:24 → OBSVTOIN 12-28 14:51
PROVIDERS: ADMIT Hospitalist; ATTEND Hospitalist
PROC: 4A023N7 Measurement of Cardiac Sampling and Pressure, Left Heart, Percutaneous Approach (ICD-10-PCS; principal; 2017-12-29)
PROC: B205YZZ Plain Radiography of Left Heart using Other Contrast (ICD-10-PCS; 2017-12-29)
PROC: B201YZZ Plain Radiography of Multiple Coronary Arteries using Other Contrast (ICD-10-PCS; 2017-12-29)
DX: I25.110 Atherosclerotic heart disease of native coronary artery with unstable angina pectoris (principal); Z68.41 Body mass index [BMI] 40.0-44.9, adult; E78.5 Hyperlipidemia, unspecified; E66.01 Morbid (severe) obesity due to excess calories; Z91.14 Patient's other noncompliance with medication regimen; Z95.5 Presence of coronary angioplasty implant and graft; I11.9 Hypertensive heart disease without heart failure; E11.65 Type 2 diabetes mellitus with hyperglycemia
CPT/HCPCS: 36415; 70450; 71045; 71275; 74175; 80048; 80061; 80076; 81003; 81015; 82550; 82553; 82962; 83735; 83880; 84100; 84484; 85025; 85610; 85730; 93005; 93454; 96361; 96372; 96374; 99285; C1760; C1893; G0378; J0583; J1650; J2250; J3010; J7030; Q9967

== ENCOUNTER 2018-02-18 11:54 | Observation (INO) | payer OTHER ==
[2018-02-18 13:08] LABS: Absolute Lymphocytes (CBC) 1.8 K/uL (0.7-4.9); Absolute Monocytes 0.5 K/uL (0.1-1.3); Absolute Neutrophil 2.8 K/uL (1.8-8.0); Basophils % 0.3 % (0-1.3); Eosinophils % 1.1 % (0-4.4); Hematocrit 42.6 % (39.6-49.0); Lymphocytes % 34.9 % (15.3-44.8); MCH 25.5 pg (27.0-35.0); MCV 78.8 fL (80-100); MPV 9.1 fL (7.6-11.3); Monocytes % 9.8 % (3.3-12.3); RBC Red Blood Cell Count 5.41 M/uL (4.33-5.43)
[2018-02-18 13:11] LABS: Protime INR 0.99
--- NOTE | 2018-02-18 13:40 | RAD REPORT ---
EXAM DESCRIPTION: RAD - Chest Single View - 02/18/2018 1:21 pm CLINICAL HISTORY: CHEST PAIN Chest pain. COMPARISON: Chest Single View dated 12/27/2017; Chest Single View dated 01/27/2017; Chest Single View dated 10/09/2016; Chest Single View dated 04/16/2016 FINDINGS: Portable technique limits examination quality. The lungs are grossly clear. The heart is mildly prominent size. No displaced fractures.Moderate dext roscoliosis of the thoracic spine. IMPRESSION: No acute intrathoracic process suspected.
[2018-02-18 13:42] LABS: Albumin 3.5 g/dL (3.4-5.0); Bilirubin Direct 0.1 mg/dL (0-0.2); Bilirubin Total 0.3 mg/dL (0.2-1.0); CKMB Creatine Kinase MB 2.9 ng/mL (0.3-3.6); Magnesium 2.2 mg/dL (1.8-2.4); Potassium 3.8 mmol/L (3.5-5.1); Protein, Total 8.4 g/dL (6.4-8.2)
--- NOTE | 2018-02-18 13:51 | EKG ---
Test Date: 2018-02-18 Test Time: 12:28:39 Supervisor Securities Vault: LINDA MEASUREMENT RESULTS: Intervals: Rate: 85 [place]: 240 QRSD: 118 QT: 418 QTc: 497 [place]: P: 66 [place]: 240 QRS: -38 T: 63 INTERPRETIVE STATEMENTS: Sinus rhythm with 1st degree AV block Possible Left atrial enlargement Left axis deviation Incomplete right bundle branch block Prolonged QT Abnormal ECG Compared to ECG 12/29/2017 09:35:07 Left-axis deviation now present Incomplete right bundle-branch block now present Prolonged QT interval now present Electronically Signed On 02-18-18 13:51:23 CDT by Silviano Grimes
--- NOTE | 2018-02-18 14:33 | ER ---
Nurse's Notes [facility] Name: Bryan Watts Age: 52 yrs Sex: Male : 1965 Arrival Date: 02/18/2018 Time: 12:18 Bed 17 Private MD: Diagnosis: Other chest pain Presentation: 02/18 11:55 Presenting complaint: EMS states: PT. A \T\ O x 4 c/o of chest pain, center does not rb1 radiate, pain a 05/12. Received Aspirin 324 mg PO, Nitro x 2 and pain subsided. Has 20 g Right AC. Hx: HTN, diabetes. NKA 12-Lead showed SR, BP 210/126. Pt. was ambulatory when EMS arrived. Transition of care: patient was not received from another setting of care. Onset of symptoms was February 18, 2018 at 10:00. Risk Assessment: Do you want to hurt yourself or someone else? Patient reports no desire to harm self or others. Initial Sepsis Screen: Does the patient meet any 2 criteria? No. Patient's initial sepsis screen is negative. Does the patient have a suspected source of infection? No. Patient's initial sepsis screen is negative. Care prior to arrival: Medication(s) given: ASA, 324 mg Nitro x 2. 11:55 Method Of Arrival: EMS: [facility] rb1 11:55 Acuity: GABBY 3 rb1 Triage Assessment: 11:55 General: Appears in no apparent distress. comfortable, obese, Behavior is calm, rb1 cooperative. Pain: Denies pain. Neuro: Level of Consciousness is awake, alert, obeys commands, Oriented to person, place, time, situation. Cardiovascular: Capillary refill < 3 seconds is brisk in bilateral fingers Rhythm is sinus rhythm. Respiratory: Airway is patent Respiratory effort is even, unlabored, Respiratory pattern is regular, symmetrical. GI: No signs and/or symptoms were reported involving the gastrointestinal system. : No signs and/or symptoms were reported regarding the genitourinary system. Derm: Skin is dry, Skin is normal, Skin temperature is warm. Historical: - Allergies: : No Known Allergies; rb1 - Home Meds: :55 hydralazine 100 mg Oral tab 1 tab 4 times per day [Active]; amlodipine 10 mg tab 1 tab rb1 once daily [Active]; atorvastatin 80 mg Oral tab 1 tab once daily [Active]; carvedilol 25 mg Oral tab 1 tab 2 times per day [Active]; lisinopril 20 mg Oral tab 1 tab twice a day [Active]; - PMHx: 11:55 Diabetes - IDDM; Hyperlipidemia; Hypertension; rb1 - PSHx: 11:55 None; right knee; rb1 - Immunization history:: Adult Immunizations up to date. - Social history:: Smoking status: Patient/guardian denies using tobacco. - Ebola Screening: : Patient negative for fever greater than or equal to 101.5 degrees Fahrenheit, and additional compatible Ebola Virus Disease symptoms. Screenin:55 Abuse screen: Denies threats or abuse. Nutritional screening: No deficits noted. rb1 Tuberculosis screening: No symptoms or risk factors identified. Fall Risk None identified. Assessment: 11:55 General: See triage assessment. rb1 11:55 Pain: Pain does not radiate. Pain began this morning at 1000. rb1 12:53 Reassessment: Patient appears in no apparent distress at this time. Patient and/or rb1 family updated on plan of care and expected duration. Pain level reassessed. Patient is alert, oriented x 3, equal unlabored respirations, skin warm/dry/pink. Patient denies pain at this time. 13:46 Reassessment: Patient appears in no apparent distress at this time. No changes from rb1 previously documented assessment. 14:45 Reassessment: Patient appears in no apparent distress at this time. Patient and/or rb1 family updated on plan of care and expected duration. Pain level reassessed. Patient is alert, oriented x 3, equal unlabored respirations, skin warm/dry/pink. 15:40 Reassessment: Patient appears in no apparent distress at this time. No changes from rb1 previously documented assessment. Spoke to SAMUEL Johnson. Information from the [facility] was given. All questions asked and answered. 16:19 Reassessment: Called to give report and was put on hold. Unable to give report at this rb1 time. 16:37 Reassessment: Patient appears in no apparent distress at this time. Patient and/or rb1 family updated on plan of care and expected duration. Pain level reassessed. Patient is alert, oriented x 3, equal unlabored respirations, skin warm/dry/pink. Family at bedside. Vital Signs: 11:55 BP 136 / 100; Pulse 87; Resp 19; Temp 98.2(O); Pulse Ox 97% on R/A; Weight 141.97 kg rb1 (R); Height 6 ft. 2 in. (187.96 cm) (R); Pain 0/10; 12:45 BP 133 / 97; Pulse 86; Resp 17; Pulse Ox 96% on R/A; rb1 13:45 BP 137 / 91; Pulse 75; Resp 16; Pulse Ox 95% ; rb1 14:15 BP 140 / 96; Pulse 76; Resp 17; Pulse Ox 94% on R/A; rb1 15:15 BP 155 / 107; Pulse 73; Resp 18; Pulse Ox 97% on R/A; rb1 16:03 BP 160 / 95; Pulse 74; Resp 17; Pulse Ox 96% on R/A; rb1 11:55 Body Mass Index 40.19 (141.97 kg, 187.96 cm) rb1 ED Course: 11:55 Arm band placed on right wrist. rb1 11:55 Patient has correct armband on for positive identification. Placed in gown. Bed in low rb1 position. Call light in reach. Side rails up X 1. teletypesetter monitor on. Pulse ox on. NIBP on. Warm blanket given. 11:55 Patient maintains SpO2 saturation greater than 95% on room air. rb1 11:55 Maintain EMS IV. Dressing intact. Good blood return noted. Site clean \T\ dry. Gauge \T\ rb 1 site: 20 g right AC. 12:18 Patient arrived in ED. rb1 12:18 Esteban Rodriguez PA is PHCP. jmm 12:18 Ronald Rouse MD is Attending Physician. jmm 12:28 Triage completed. rb1 12:38 EKG done, by instructional technology facilitator. reviewed by Esteban DARNELL. dt2 12:40 Suzie Casey, SAMUEL is Primary Nurse. rb1 13:21 XRAY Chest (1 view) In Process Unspecified. EDMS 14:33 Kumar Swanson MD is Hospitalizing Provider. [facility] 16:53 No provider procedures requiring assistance completed. Patient admitted, IV remains in rb1 place. Administered Medications: No medications were administered Outcome: 14:33 Decision to Hospitalize by Provider. jmm 16:53 Patient left the ED. hb 16:53 Admitted to Med/surg accompanied by tech, via wheelchair, room 209, with chart, Report rb1 called to SAMUEL Johnson 16:53 Condition: stable rb1 16:53 Instructed on the need for admit. Signatures: Dispatcher [employer] Esteban Arndt PA PA jmm Barber, Rebecca, RN RN rb1 Robyn Lake RN RN Alena Escalante2
--- NOTE | 2018-02-18 14:34 | EDPHYS ---
Physician Documentation [facility] Name: Bryan Watts Age: 52 yrs Sex: Male : 1965 Arrival Date: 02/18/2018 Time: 12:18 Bed 17 Private MD: ED Physician Ronald Rouse HPI: 02/18 11:55 This 52 yrs old Black Male presents to ER via EMS with complaints of Chest Pain. jmm 11:55 The patient or guardian reports chest pain that is located primarily in the substernal [facility] area. 11:55 Onset: acutely, 3 hour(s) ago. The pain does not radiate. Associated signs and [facility] symptoms: Pertinent positives: Pertinent negatives: abdominal pain, cough, lightheadedness, nausea, shortness of breath. The chest pain is described as a pressure. Duration: The patient or guardian reports a single episode, that is still ongoing, but improving. This is a 52 year old male with a history of htn, CAD, DM that presents to the ED with substernal chest pain beginning this morning at approx 10 am. Patient states that he was having elevated blood pressure beginning last night. . Patient states his blood pressure increased this morning again with development of chest pain described as pressure. Historical: - Allergies: 11:55 No Known Allergies; rb1 - Home Meds: 11:55 hydralazine 100 mg Oral tab 1 tab 4 times per day [Active]; amlodipine 10 mg tab 1 tab rb1 once daily [Active]; atorvastatin 80 mg Oral tab 1 tab once daily [Active]; carvedilol 25 mg Oral tab 1 tab 2 times per day [Active]; lisinopril 20 mg Oral tab 1 tab twice a day [Active]; - PMHx: 11:55 Diabetes - IDDM; Hyperlipidemia; Hypertension; rb1 - PSHx: 11:55 None; right knee; rb1 - Immunization history:: Adult Immunizations up to date. - Social history:: Smoking status: Patient/guardian denies using tobacco. - Ebola Screening: : Patient negative for fever greater than or equal to 101.5 degrees Fahrenheit, and additional compatible Ebola Virus Disease symptoms. ROS: 12:54 Constitutional: Negative for fever, chills, and weight loss. jmm 12:54 Respiratory: Negative for shortness of breath, cough, wheezing, and pleuritic chest pain, Abdomen/GI: Negative for abdominal pain, nausea, vomiting, diarrhea, and constipation, Neuro: Negative for headache, weakness, numbness, tingling, and seizure. 12:54 Cardiovascular: Positive for chest pain. 12:54 All other systems are negative. Exam: 12:54 Head/Face: atraumatic. Chest/axilla: Normal chest wall appearance and motion. [facility] 12:54 Constitutional: The patient appears in no acute distress, alert, awake. 12:54 Cardiovascular: Rate: normal, Rhythm: regular. 12:54 Respiratory: the patient does not display signs of respiratory distress, Respirations: normal. 12:54 Abdomen/GI: Inspection: obese Bowel sounds: normal, Palpation: abdomen is soft and non-tender. 12:54 Back: ROM is normal. 12:54 Musculoskeletal/extremity: ROM: intact in all extremities. 12:54 Skin: Appearance: Color: normal in color. 12:54 Neuro: Orientation: is normal, Mentation: is normal, Memory: is normal. 12:54 Psych: Behavior/mood is pleasant, cooperative. Vital Signs: 11:55 BP 136 / 100; Pulse 87; Resp 19; Temp 98.2(O); Pulse Ox 97% on R/A; Weight 141.97 kg rb1 (R); Height 6 ft. 2 in. (187.96 cm) (R); Pain 0/10; 12:45 BP 133 / 97; Pulse 86; Resp 17; Pulse Ox 96% on R/A; rb1 13:45 BP 137 / 91; Pulse 75; Resp 16; Pulse Ox 95% ; rb1 14:15 BP 140 / 96; Pulse 76; Resp 17; Pulse Ox 94% on R/A; rb1 15:15 BP 155 / 107; Pulse 73; Resp 18; Pulse Ox 97% on R/A; rb1 16:03 BP 160 / 95; Pulse 74; Resp 17; Pulse Ox 96% on R/A; rb1 11:55 Body Mass Index 40.19 (141.97 kg, 187.96 cm) rb1 MDM: 12:18 Patient medically screened. m 14:32 The patient was not given aspirin in the Emergency Department. Administered by EMS. [facility] Data reviewed: vital signs, nurses notes. 15:00 Data reviewed: lab test result(s), EKG, radiologic studies. Counseling: I had a [facility] detailed discussion with the patient and/or guardian regarding: the historical points, exam findings, and any diagnostic results supporting the discharge/admit diagnosis, radiology results, the need for further work-up and treatment in the hospital. ED course: I discussed the patient with MANN Hitchcock whom accepted admission for Dr. Swanson. . 02/18 12:21 Order name: Basic Metabolic Panel; Complete Time: 13:53 [facility] 02/18 12:21 Order name: CBC with Diff; Complete Time: 13:29 [facility] 02/18 12:21 Order name: Ckmb; Complete Time: 13:53 [facility] 02/18 12:21 Order name: CPK; Complete Time: 13:53 [facility] 02/18 12:21 Order name: LFT's; Complete Time: 13:53 [facility] 02/18 12:21 Order name: Magnesium; Complete Time: 13:53 [facility] 02/18 12:21 Order name: NT PRO-BNP; Complete Time: 13:53 [facility] 02/18 12:21 Order name: PT-INR; Complete Time: 13:29 [facility] 02/18 12:21 Order name: Ptt, Activated; Complete Time: 13:29 [facility] 02/18 12:21 Order name: Troponin (emerg Dept Use Only); Complete Time: 13:29 [facility] 02/18 12:21 Order name: XRAY Chest (1 view); Complete Time: 13:53 [facility] 02/18 12:21 Order name: EKG; Complete Time: 12:22 [facility] 02/18 14:38 Order name: Urine Dipstick--Ancillary (enter results); Complete Time: 15:10 02/18 14:44 Order name: Diet Heart Healthy; Complete Time: 14:45 [facility] 02/18 12:21 Order name: Cardiac monitoring; Complete Time: 12:41 [facility] 02/18 12:21 Order name: EKG - Nurse/Tech; Complete Time: 12:41 [facility] 02/18 12:21 Order name: IV Saline Lock; Complete Time: 12:41 [facility] 02/18 12:21 Order name: Labs collected and sent; Complete Time: 12:41 [facility] 02/18 12:21 Order name: O2 Per Protocol; Complete Time: 12:41 [facility] 02/18 12:21 Order name: O2 Sat Monitoring; Complete Time: 12:41 [facility] 02/18 12:21 Order name: Urine Dipstick-Ancillary (obtain specimen); Complete Time: 14:45 [facility] 02/18 12:37 Order name: Labs - recollect needed; Complete Time: 14:44 dm Administered Medications: No medications were administered Disposition: 18:02 Co-signature as Attending Physician, Ronald Rouse MD. rn Disposition: 02/18/18 14:33 Hospitalization ordered by Kumar Swanson for Observation. Preliminary diagnosis is Other chest pain. - Bed requested for Telemetry/MedSurg (observation). - Status is Observation. hb - Condition is Stable. - Problem is new. - Symptoms are unchanged. UTI on Admission? No Signatures: Dispatcher [employer] EDCherise Milan, RN SAMUEL [id number] Myesha Nathan RN Esteban Jarrett PA PA [facility] Ronald Rouse MD MD rn Barber, Rebecca, RN RN rb1 Baxter, Heather, RN RN hb Botello, Elizabeth eb Corrections: (The following items were deleted from the chart) 15:05 14:33 Hospitalization Ordered by Kumar Swanson MD for Observation. Preliminary diagnosis eb is Other chest pain. Bed requested for Telemetry/MedSurg (observation). Status is Observation. Condition is Stable. Problem is new. Symptoms are unchanged. UTI on Admission? No. [facility] 15:42 15:05 02/18/2018 14:33 Hospitalization Ordered by Kumar Swanson MD for Observation. dw Preliminary diagnosis is Other chest pain. Bed requested for Telemetry/MedSurg (observation). Status is Observation. Condition is Stable. Problem is new. Symptoms are unchanged. UTI on Admission? No. eb 16:53 15:42 02/18/2018 14:33 Hospitalization Ordered by Kumar Swanson MD for Observation. hb Preliminary diagnosis is Other chest pain. Bed requested for Telemetry/MedSurg (observation). Status is Observation. Condition is Stable. Problem is new. Symptoms are unchanged. UTI on Admission? No. dw
[2018-02-18 14:59] LABS: Urine Blood NEGATIVE (NEG); Urine Glucose NEGATIVE (NEG); Urine Protein 2+ (NEG); Urine Specific Gravity 1.015 (1.005-1.030)
--- NOTE | 2018-02-18 16:02 | P.HP ---
Certification for Inpatient Patient admitted to: Observation With expected LOS: <2 Midnights Patient will require the following post-hospital care: None Practitioner: I am a practitioner with admitting privileges, knowledge of patient current condition, hospital course, and medical plan of care. Services: Services provided to patient in accordance with Admission requirements found in Title 42 Section 412.3 of the Code of Federal Regulations <Aidan Kahn - Last Filed: 02/18/18 15:51> Patient History Date of Service: 02/18/18 Primary Care Provider: OOT Reason for admission: Chest pain History of Present Illness: 52-year-old male presented to the ED after being brought by EMS for chest pain and hypertension. Patient with a history of coronary artery disease, hypertension, diabetes, hypercholesterolemia, and coronary artery stents. Patient stated that he started to have chest pain while at home and noticed that his blood pressure was markedly elevated. EMS was called at that time. Aspirin and nitro x2 was administered prior to arriving to the hospital. Treatment had significantly decreased patient's pain and blood pressure came down to a relatively normal range. Patient was worked up in ED. EKG nonspecific, no acute ischemia or infarction noted. 1st troponin was negative. Patient's CK was 1100. Due to patient's history patient was asked to be seen by hospitalist and admitted further evaluation for his chest pain in which we are happy to do so. Home medications list reviewed: Yes - Past Medical/Surgical History Has patient received pneumonia vaccine in the past: No Diabetic: Yes -: DM -: HTN -: CAD -: Coronary artery stent -: RIGHT KNEE SX -: ARTIFICIAL LEFT EYE -: Cardiac catherization with stent - Family History Father -: Heart disease, Hypertension - Social History Smoking Status: Never smoker Smoking therapy provided: No Alcohol use: No CD- Drugs: No Caffeine use: Yes <Aidan Kahn - Last Filed: 02/18/18 15:51> Date of Service: 02/18/18 <Kumar Swanson - Last Filed: 02/18/18 18:32> Allergies No Known Allergies Allergy (Uncoded 02/18/18 16:57) Unknown Home Medications: Aspirin 81 mg PO DAILY 01/28/12 Amlodipine Besylate 10 mg PO DAILY 05/27/12 Atorvastatin Calcium [Lipitor*] 80 mg PO BEDTIME 10/18/15 Carvedilol [Coreg*] 25 mg PO BID 10/18/15 Metformin HCl [Glucophage*] 500 mg PO BID 10/18/15 Nitroglycerin 0.4 mg SL PRN 10/19/15 Ciprofloxacin HCl [Cipro 500 MG Tablet] 500 mg PO BID #20 tab 11/27/15 Metronidazole 500 mg PO TID #30 tablet 11/27/15 Hydralazine [Apresoline*] 100 mg PO QID 01/28/17 Lisinopril [Prinivil*] 20 mg PO BID 01/28/17 Doxazosin [Cardura*] 2 mg PO BID #60 tab 01/29/17 Furosemide [Lasix*] 40 mg PO DAILY #30 tab 01/29/17 Potassium Chloride 20 meq PO BID #60 tab.er.prt 01/29/17 Review of Systems 10-point ROS is otherwise unremarkable Cardiovascular: Chest Pain <SherleydayanaKalenAidan - Last Filed: 02/18/18 15:51> Physical Examination - Vital Signs Temperature: 98.2 F Blood Pressure: 155/107 Pulse: 73 Respirations: 18 Pulse Ox (%): 97 - Physical Exam General: Alert, In no apparent distress, Oriented x3, Cooperative HEENT: PERRLA, Mucous membr. moist/pink, EOMI Neck: Supple, 2+ carotid pulse no bruit Respiratory: Clear to auscultation bilaterally, Normal air movement Cardiovascular: No edema, Normal pulses, Regular rate/rhythm, Normal S1 S2, No gallops, No rubs, No murmurs Capillary refill: <2 Seconds Gastrointestinal: Normal bowel sounds, Soft and benign, Non-distended, No tenderness Musculoskeletal: No clubbing, No swelling, No contractures, No erythema, No tenderness, No warmth Integumentary: No rashes, No breakdown, No significant lesion Neurological: Normal speech, Normal strength at 5/5 x4 extr, Normal tone, Sensation intact, Cranial nerves 3-12 intact, Normal affect - Studies Laboratory Data (last 24 hrs) 02/18/18 12:50: PT 11.7, INR 0.99, APTT 25.8 02/18/18 12:50: WBC 5.1, Hgb 13.8, Hct 42.6, Plt Count 252 02/18/18 12:50: Sodium 140, Potassium 3.8, BUN 28 H, Creatinine 1.60 H, Glucose 107 H, Magnesium 2.2, Total Bilirubin 0.3, AST 29, ALT 30, Alkaline Phosphatase 66 <Aidan Kahn - Last Filed: 02/18/18 15:51> - Studies Laboratory Data (last 24 hrs) 02/18/18 12:50: PT 11.7, INR 0.99, APTT 25.8 02/18/18 12:50: WBC 5.1, Hgb 13.8, Hct 42.6, Plt Count 252 02/18/18 12:50: Sodium 140, Potassium 3.8, BUN 28 H, Creatinine 1.60 H, Glucose 107 H, Magnesium 2.2, Total Bilirubin 0.3, AST 29, ALT 30, Alkaline Phosphatase 66 <Kumar Swanson - Last Filed: 02/18/18 18:32> Assessment and Plan - Problems (Diagnosis) (1) Kidney disease Current Visit: Yes Status: Acute Plan: Will monitor kidney function while patient is in the hospital. Is recommended the patient follow up with a bond runner. (2) Elevated CK Current Visit: Yes Status: Acute Plan: The patient has a history of rhabdomyolysis in the past. Will monitor CK as this is likely to be secondary to statin therapy. We have reduced patient's cholesterol medicine by half and have drawn a lipid panel to assess what his cholesterol levels are. Fluid administration has also been started will continue throughout the hospital stay (3) Chest pain Onset Date: 10/18/15 Current Visit: No Status: Acute Plan: Patient will have daily EKGs and serial troponins. Cardiology has been consulted for further assessment and need for stress test or angiogram. Qualifiers: Chest pain type: unspecified Qualified Code(s): R07.9 - Chest pain, unspecified (4) DM2 (diabetes mellitus, type 2) Onset Date: 01/28/17 Current Visit: No Status: Acute Plan: The patient's blood sugar will be monitored patient put on sliding scale. Patient's diet will be modified while in hospital. Qualifiers: Diabetes mellitus medical terminologist insulin use: with custodial use Diabetes mellitus complication status: with kidney complications Diabetes mellitus complication detail: with chronic kidney disease Chronic kidney disease stage : stage 2 (mild) Qualified Code(s): E11.22 - Type 2 diabetes mellitus with diabetic chronic kidney disease; N18.2 - Chronic kidney disease, stage 2 (mild) ; Z79.4 - long-term (current) use of insulin (5) HTN (hypertension) Onset Date: 01/28/17 Current Visit: No Status: Acute Plan: Will continue patient's home medicine and monitor blood pressure. Nitroglycerin as needed for chest pain. Qualifiers: Hypertension type: essential hypertension Qualified Code(s): I10 - Essential (primary) hypertension (6) Hyperlipidemia Onset Date: 11/26/15 Current Visit: No Status: Chronic Plan: Patient's cholesterol medicine will be continued. It is been reduced to 40 once a day instead of 80 once a day. Lipid panel has been drawn to assess his current cholesterol level Discharge Plan: Home Plan to discharge in: 24 Hours - Advance Directives Does patient have a Living Will: No Does patient have a Durable POA for Healthcare: No - Code Status/Comfort Care Code Status Assessed: Yes Code Status: Full Code <Aidan Kahn - Last Filed: 02/18/18 15:51> - Plan Case discussed with PA. Agree with above. <Kumar Swanson - Last Filed: 02/18/18 18:32>
[2018-02-18] MEDS ORDERED: NITROGLYCERIN 0.4 MG/TAB SL PRN (17:05)
[2018-02-18] MEDS ORDERED: GLUCAGON 1 MG/VIAL IM PRN (17:05)
[2018-02-18] MEDS: INSULIN -REGULAR HUMAN 50 UNIT/0.5 ML ML SQ SCH ×2 (17:05→20:59)
[2018-02-18] MEDS ORDERED: ONDANSETRON 4 MG/2 ML VIAL IV PRN (17:05)
[2018-02-18] MEDS ORDERED: D50W 25 GM/50 ML SYRINGE IV PRN (17:05)
[2018-02-18] MEDS ORDERED: ACETAMINOPHEN 500 MG TAB PO PRN (17:05)
[2018-02-18] MEDS: NA CHLORIDE 0.9% 1,000 ML IV SCH (17:28)
[2018-02-18] MEDS: CARVEDILOL 25 MG TAB PO SCH (17:28)
[2018-02-18 17:47] VITALS: BMI 40.1
[2018-02-18] MEDS: LISINOPRIL 20 MG TAB PO SCH (20:58)
[2018-02-18] MEDS: HYDRALAZINE HCL 25 MG TABLET PO SCH (20:58)
[2018-02-18] MEDS ORDERED: ATORVASTATIN 40 MG TAB PO SCH (21:00)
[2018-02-19 05:23] LABS: Absolute Lymphocytes (CBC) 1.7 K/uL (0.7-4.9); Absolute Monocytes 0.5 K/uL (0.1-1.3); Absolute Neutrophil 2.8 K/uL (1.8-8.0); Basophils % 0.3 % (0-1.3); Eosinophils % 1.5 % (0-4.4); Lymphocytes % 33.3 % (15.3-44.8); MCH 25.4 pg (27.0-35.0); MCV 78.7 fL (80-100); MPV 8.9 fL (7.6-11.3); Monocytes % 10.3 % (3.3-12.3); RBC Red Blood Cell Count 5.21 M/uL (4.33-5.43)
[2018-02-19 05:47] LABS: Potassium 3.7 mmol/L (3.5-5.1)
[2018-02-19] MEDS: CARVEDILOL 25 MG TAB PO SCH (06:06)
[2018-02-19] MEDS: NA CHLORIDE 0.9% 1,000 ML IV SCH (06:06)
[2018-02-19] MEDS: INSULIN -REGULAR HUMAN 50 UNIT/0.5 ML ML SQ SCH ×2 (07:30→11:30)
[2018-02-19] MEDS ORDERED: ASPIRIN EC 81 MG TAB PO SCH (09:00)
[2018-02-19] MEDS ORDERED: AMLODIPINE 10 MG TAB PO SCH (09:00)
[2018-02-19] MEDS: HYDRALAZINE HCL 25 MG TABLET PO SCH (10:02)
[2018-02-19] MEDS: LISINOPRIL 20 MG TAB PO SCH (10:03)
[2018-02-19 12:03] VITALS: O2SAT 95
[2018-02-19 12:07] VITALS: BP 141/85; TEMP 97.5
--- NOTE | 2018-02-19 13:05 | DS ---
Date of Discharge: 02/19/2018 Admitting Diagnoses: 1. Chest pain, rule out acute coronary syndrome. 2. Possible rhabdomyolysis, elevated CK level. 3. Acute kidney injury. 4. Diabetes mellitus type 2. 5. Hyperlipidemia. Discharge Diagnoses: 1. Chest pain. Acute coronary syndrome ruled out. 2. Diabetes mellitus type 2, non-insulin requiring with hyperglycemia. 3. Essential hypertension, improved. 4. Coronary artery disease, status post stent, [place] artery, [place] heart without angina. 5. Hyperlipidemia, on statin. 6. Rhabdomyolysis, improving. 7. Acute kidney injury, resolved. 8. Hypertensive heart disease. Consultants: Cardiology Dr. Grimes. Hospital Course: The patient is a 52-year-old male, comes in due to chest pain and uncontrolled blood pressure. The patient was apparently recently in [place] as well, was not admitted. The patient was admitted for chest pain, rule out ACS. His cardiac enzymes were negative. EKG did not show any acute changes. Cardiology was consulted. The patient states that his symptoms have resolved. He was otherwise doing well. Patient has had recent cardiac cath in December. He did have some acute kidney injury and rhabdomyolysis, which may be secondary to his high statin dose, which was reduced to 40 mg. His CK level improved with IV fluid hydration. Kidney function corrected. The patient was then cleared for discharge and was sent home in a stable condition. Activity: As tolerated. Medications: As per medication reconciliation list. Diet: Diabetic. Followup: Follow up with primary care physician in 2-3 days. Follow up with channel man in 2 weeks. Discharge Instructions: Return to ER for worsening condition. Physical Examination: General: Awake, alert, oriented x3. No acute distress. CV: S1, S2. No murmurs. Respiratory: Clear to auscultation bilaterally. No wheezing. No stridor. No use of accessory muscles Gastrointestinal: Abdomen is soft, nontender, nondistended. Positive bowel sounds. Extremities: No clubbing, cyanosis, edema. Neurologic: Nonfocal. SA/MODL Voice ID: [id number] Report ID: [id number] TAWANDA
--- NOTE | 2018-02-19 22:17 | CON ---
Date of Consultation: 02/19/2018 Additional Admitting Physician: Kumar Swanson MD. Reason For Consultation: Chest pain. History Of Present Illness: Mr. Watts is a 52-year-old black male who is very well known to me from previous office visits and admission to the hospital. He has a history of diabetes, malignant hyper tension, and dyslipidemia. He has severe left ventricular hypertrophy by echocardiography with left ventricular dysfunction that is diastolic. He had a normal heart catheterization in December of 2017 show ing no coronary artery disease. He came in with substernal chest pain with some shortness of breath with some nausea, but no diaphoresis, PND, orthopnea, pedal edema, palpitation, or syncope. He had e levated CPK but negative troponin, negative MB, and negative BNP. He had blood pressure of 150/80. His creatinine is 1.6 and repeat showed a creatinine of 1.2. He is pain-free now. Allergies: NONE. Review of Systems: Negative. Social History: Negative. Family History: Noncontributory. Medications: At home include metformin, lisinopril, potassium, Norvasc, aspirin, Lipitor, Coreg, Car dura, and Lasix. Physical Examination: Vital Signs: Stable. He was afebrile. He was in a sinus rhythm. HEENT: Negative. Neck: Supple without any bruit, lymphadenopathy, JVD, or thyromegaly. Chest: Clear to auscultation and percussion. Cardiac: Revealed a regular rhythm and rate with S4 gallops. No murmurs or rubs. Abdomen: Obese but benign. Extremities: Reveal trace edema. Imaging: EKG showed nonspecific changes. Chest x-ray was negative. Impression And Plan: 1.Mr. Watts has chest pain from his left ventricular hypertrophy and diastolic dysfunction that is chronic. 2.Renal insufficiency. 3.Dyslipidemia. 4.Diabetes. History Of Present Illness: Mr. Watts needs to have his blood pressure better controlled. He needs to take Lasix as needed for shortness of breath and edema. He needs to increase his Coreg or Norvas c on an as-needed basis. If he becomes hypertensive, he needs to be compliant with his medication, c ompliant with salt control and his diabetic diet. I do not see the need of repeating any cardiac wor kup on Mr. Watts. Recent catheterization 3 months ago showed perfectly normal coronary arteries. A nother echocardiogram is not necessary either. He can go home whenever it is okay with Dr. Swanson. AMINATA/RIAZ Voice ID: [id number] Report ID: [id number]
== END 2018-02-19 13:10 | disposition home or self-care (01) ==
LOC: ER 11:54 → ERHOLD 14:33 → 2ND 16:34
PROVIDERS: ADMIT Physician Assistant; ATTEND Family Medicine
DX: R07.9 Chest pain, unspecified (principal); M62.82 Rhabdomyolysis; E11.65 Type 2 diabetes mellitus with hyperglycemia; I11.9 Hypertensive heart disease without heart failure; E78.5 Hyperlipidemia, unspecified; I51.7 Cardiomegaly; N28.9 Disorder of kidney and ureter, unspecified; I25.10 Atherosclerotic heart disease of native coronary artery without angina pectoris; Z95.5 Presence of coronary angioplasty implant and graft; Z79.82 Long term (current) use of aspirin
CPT/HCPCS: 36415; 71045; 80048 ×2; 80061; 80076; 81003; 82550 ×2; 82553; 82962 ×4; 83735; 83880; 84484 ×3; 85025 ×2; 85610; 85730; 93005; 99285; J7030 ×2; G0378

== ENCOUNTER 2018-11-16 09:47 | Inpatient (IN) | payer OTHER ==
--- OUTSIDE RECORDS SUMMARY | 2018-11-16 10:02 | XMS REPORT ---
:1965 [facility] Address [address] [place] [address] [place] [id number] Care Team Providers Name Role Phone Unavailable Unavailable Unavailable Problems This patient has no known problems. Allergies, Adverse Reactions, Alerts This patient has no known allergies or adverse reactions. Medications This patient has no known medications.
[2018-11-16] MEDS ORDERED: METOPROLOL TAR 50 MG TAB ONE (10:19)
[2018-11-16] MEDS ORDERED: HYDRALAZINE HCL 20 MG/ML VIAL ONE ×2 (10:19→11:38)
[2018-11-16] MEDS ORDERED: NA CHLORIDE 0.9% 1,000 ML ONE (10:19)
[2018-11-16] MEDS ORDERED: HYDRALAZINE HCL 10 MG TABLET ONE (10:19)
[2018-11-16] MEDS ORDERED: METOPROLOL TARTRATE 5 MG/5 ML INJ IV ONE ×2 (10:19→11:38)
[2018-11-16 10:33] LABS: Absolute Lymphocytes (CBC) 1.6 K/uL (0.7-4.9); Absolute Monocytes 0.4 K/uL (0.1-1.3); Eosinophils % 1.4 % (0-4.4); Hematocrit 47.3 % (39.6-49.0); Lymphocytes % 39.6 % (15.3-44.8); MPV 9.2 fL (7.6-11.3); Monocytes % 9.2 % (3.3-12.3); RBC Red Blood Cell Count 6.13 M/uL (4.33-5.43)
[2018-11-16 10:35] LABS: Protime INR 0.99
--- NOTE | 2018-11-16 10:49 | RAD REPORT ---
EXAM DESCRIPTION: RAD - Chest Single View - 11/16/2018 10:43 am CLINICAL HISTORY: CHEST PAIN Chest pain. COMPARISON: Chest Single View dated 02/18/2018; Chest Single View dated 12/27/2017; Chest Single View dated 01/27/2017; Chest Single View dated 10/09/2016 FINDINGS: Portable technique limits examination quality. The lungs are grossly clear. The heart is prominent in size. No displaced fractures. IMPRESSION: No acute intrathoracic process suspected.
[2018-11-16 10:53] LABS: ALT/SGPT 38 U/L (12-78); Albumin 3.6 g/dL (3.4-5.0); Alkaline Phosphatase 76 U/L (45-117); BUN Blood Urea Nitrogen 12 mg/dL (7-18); Bicarbonate 25 mmol/L (21-32); Bilirubin Total 0.6 mg/dL (0.2-1.0); Glucose Level 118 mg/dL (74-106); Lipase 62 U/L (73-393); NT PRO-BNP 391 pg/mL (<125); Protein, Total 8.2 g/dL (6.4-8.2); Sodium Level 141 mmol/L (136-145); Troponin (Emerg Dept Use Only) 0.02 ng/mL (0.0-0.045)
[2018-11-16 10:54] LABS: AST/SGOT 34 U/L (15-37); Bilirubin Direct < 0.1 mg/dL (0-0.2); Potassium 4.1 mmol/L (3.5-5.1)
--- NOTE | 2018-11-16 11:16 | EKG ---
Test Date: 2018-11-16 Test Time: 10:05:51 Neon Sign Servicer: LINDA MEASUREMENT RESULTS: Intervals: Rate: 87 CO: 252 QRSD: 110 QT: 406 QTc: 488 [place]: P: 68 CO: 252 QRS: -56 T: 74 INTERPRETIVE STATEMENTS: Sinus rhythm with 1st degree AV block Right atrial enlargement Pulmonary disease pattern Left axis Cannot rule out Inferior infarct, age undetermined Abnormal ECG Compared to ECG 02/18/2018 12:28:39 Left ventricular hypertrophy now present Incomplete right bundle-branch block no longer present Prolonged QT interval no longer present Inferior infarct is now present Electronically Signed On 11-16-18 10:30:43 CDT by Kunal Borrego
[2018-11-16] MEDS ORDERED: ASPIRIN 81 MG CHEWABLE TABLET ONE (11:38)
--- NOTE | 2018-11-16 12:32 | EDPHYS ---
Physician Documentation [facility] Name: Bryan Watts Age: 52 yrs Sex: Male : 1965 Arrival Date: 11/16/2018 Time: 09:49 Bed 5 Private MD: ED Physician Jamil Parish HPI: 11/16 12:25 This 52 yrs old Black Male presents to ER via Ambulatory with complaints of Chest Pain, jaime High Blood Pressure, Headache. 12:25 The patient or guardian reports chest pain that is located primarily in the substernal jaime area, anterior chest wall. Onset: 1 day(s) ago. The pain does not radiate. Associated signs and symptoms: The patient has no apparent associated signs or symptoms. The chest pain is described as a heaviness. Modifying factors: The symptoms are alleviated by nothing. the symptoms are aggravated by nothing. Severity of pain: At its worst the pain was mild in the emergency department the pain is unchanged. The patient has not experienced similar symptoms in the past. Historical: - Allergies: 09:52 No Known Allergies; hj - PMHx: 09:52 Diabetes - IDDM; Hyperlipidemia; Hypertension; hj - PSHx: 09:52 right knee; hj - Immunization history:: Adult Immunizations up to date. - Social history:: Smoking status: Patient/guardian denies using tobacco, Patient/guardian denies using alcohol. - Ebola Screening: : Patient negative for fever greater than or equal to 101.5 degrees Fahrenheit, and additional compatible Ebola Virus Disease symptoms Patient denies exposure to infectious person Patient denies travel to an Ebola-affected area in the 21 days before illness onset. - Family history:: not pertinent. ROS: 12:25 Constitutional: Negative for fever, chills, and weight loss, Eyes: Negative for injury, jaime pain, redness, and discharge, ENT: Negative for injury, pain, and discharge, Neck: Negative for injury, pain, and swelling, Respiratory: Negative for shortness of breath, cough, wheezing, and pleuritic chest pain, Abdomen/GI: Negative for abdominal pain, nausea, vomiting, diarrhea, and constipation, Back: Negative for injury and pain, : Negative for injury, bleeding, discharge, and swelling, MS/Extremity: Negative for injury and deformity, Skin: Negative for injury, rash, and discoloration, Neuro: Negative for headache, weakness, numbness, tingling, and seizure, Psych: Negative for depression, anxiety, suicide ideation, homicidal ideation, and hallucinations, Allergy/Immunology: Negative for hives, rash, and allergies, Endocrine: Negative for neck swelling, polydipsia, polyuria, polyphagia, and marked weight changes, Hematologic/Lymphatic: Negative for swollen nodes, abnormal bleeding, and unusual bruising. 12:25 Cardiovascular: Positive for chest pain, of the chest. Exam: 12:25 Constitutional: This is a well developed, well nourished patient who is awake, alert, jaime and in no acute distress. Head/Face: Normocephalic, atraumatic. Eyes: Pupils equal round and reactive to light, extra-ocular motions intact. Lids and lashes normal. Conjunctiva and sclera are non-icteric and not injected. Cornea within normal limits. Periorbital areas with no swelling, redness, or edema. ENT: Nares patent. No nasal discharge, no septal abnormalities noted. Tympanic membranes are normal and external auditory canals are clear. Oropharynx with no redness, swelling, or masses, exudates, or evidence of obstruction, uvula midline. Mucous membranes moist. Neck: Trachea midline, no thyromegaly or masses palpated, and no cervical lymphadenopathy. Supple, full range of motion without nuchal rigidity, or vertebral point tenderness. No Meningismus. Chest/axilla: Normal chest wall appearance and motion. Nontender with no deformity. No lesions are appreciated. Cardiovascular: Regular rate and rhythm with a normal S1 and S2. No gallops, murmurs, or rubs. Normal PMI, no JVD. No pulse deficits. Respiratory: Lungs have equal breath sounds bilaterally, clear to auscultation and percussion. No rales, rhonchi or wheezes noted. No increased work of breathing, no retractions or nasal flaring. Abdomen/GI: Soft, non-tender, with normal bowel sounds. No distension or tympany. No guarding or rebound. No evidence of tenderness throughout. Back: No spinal tenderness. No costovertebral tenderness. Full range of motion. Skin: Warm, dry with normal turgor. Normal color with no rashes, no lesions, and no evidence of cellulitis. MS/ Extremity: Pulses equal, no cyanosis. Neurovascular intact. Full, normal range of motion. Neuro: Awake and alert, GCS 15, oriented to person, place, time, and situation. Cranial nerves II-XII grossly intact. Motor strength 5/5 in all extremities. Sensory grossly intact. Cerebellar exam normal. Normal gait. Psych: Awake, alert, with orientation to person, place and time. Behavior, mood, and affect are within normal limits. Vital Signs: 09:52 BP 227 / 141; Pulse 86; Resp 18; Temp 98.6(TE); Pulse Ox 99% on R/A; Weight 154.22 kg; hj Height 6 ft. 2 in. (187.96 cm); Pain 10/10; 10:30 BP 220 / 132; Pulse 88; Resp 20; Pulse Ox 97% ; ph 11:22 BP 210 / 116; Pulse 84; Resp 18; Pulse Ox 100% on R/A; ph 11:32 BP 209 / 102; Pulse 78; Resp 16; Pulse Ox 99% on R/A; ph 12:09 BP 182 / 86; Pulse 84; Resp 18; Pulse Ox 99% on R/A; ph 13:43 BP 184 / 89; Pulse 86; Resp 19; Temp 98.6; Pulse Ox 99% on R/A; sg 09:52 Body Mass Index 43.65 (154.22 kg, 187.96 cm) hj MDM: 09:56 Patient medically screened. [facility] 12:29 Data reviewed: vital signs, nurses notes, lab test result(s), EKG, radiologic studies, jaime plain films. 11/16 09:58 Order name: Basic Metabolic Panel; Complete Time: 10:56 [facility] 11/16 09:58 Order name: CBC with Diff; Complete Time: 10:56 [facility] 11/16 09:58 Order name: LFT's; Complete Time: 10:56 [facility] 11/16 09:58 Order name: Magnesium; Complete Time: 10:56 [facility] 11/16 09:58 Order name: NT PRO-BNP; Complete Time: 10:56 [facility] 11/16 09:58 Order name: PT-INR; Complete Time: 10:56 [facility] 11/16 09:58 Order name: Troponin (emerg Dept Use Only); Complete Time: 10:56 [facility] 11/16 09:58 Order name: XRAY Chest (1 view); Complete Time: 10:56 [facility] 11/16 09:58 Order name: Lipase; Complete Time: 10:56 [facility] 11/16 09:58 Order name: Urine Culture [facility] 11/16 09:59 Order name: UDS [facility] 11/16 11:46 Order name: Echo w/ Doppler 11/16 14:16 Order name: Urine Dipstick--Ancillary (enter results) em1 11/16 09:55 Order name: EKG; Complete Time: 09:55 11/16 09:58 Order name: Cardiac monitoring; Complete Time: 10:27 [facility] 11/16 09:58 Order name: EKG - Nurse/Tech; Complete Time: 10:28 [facility] 11/16 09:58 Order name: IV Saline Lock; Complete Time: 10:28 [facility] 11/16 09:58 Order name: Labs collected and sent; Complete Time: 10:28 [facility] 11/16 09:58 Order name: O2 Per Protocol; Complete Time: 10:28 [facility] 11/16 09:58 Order name: O2 Sat Monitoring; Complete Time: 10:28 [facility] Administered Medications: 10:25 Drug: HydrALAZINE 25 mg Route: PO; ph 11:15 Follow up: Response: No adverse reaction ph 10:26 Drug: Lopressor (metoprolol TARTRATE) 50 mg Route: PO; ph 12:00 Follow up: Response: No adverse reaction ph 10:26 Drug: hydrALAZINE 10 mg Route: IV; Rate: per protocol; Site: right antecubital; ph 11:15 Follow up: Response: No adverse reaction; Blood pressure is unchanged; IV Status: ph Completed infusion 10:27 Drug: NS 0.9% 1000 ml Route: IV; Rate: 75 ml/hr; Site: right antecubital; ph 12:00 Follow up: IV Status: Infusion continued upon admission ph 10:50 Drug: Lopressor 5 mg Route: IVP; Site: right antecubital; ph 11:15 Follow up: Response: No adverse reaction; Blood pressure is unchanged ph 11:32 Drug: Lopressor 5 mg Route: IVP; Site: right antecubital; ph 12:00 Follow up: Response: No adverse reaction; Blood pressure is lowered ph 11:32 Drug: hydrALAZINE 20 mg Route: IV; Rate: per protocol; Site: right antecubital; ph 12:00 Follow up: Response: No adverse reaction; Blood pressure is lowered; IV Status: ph Completed infusion 11:32 Drug: Aspirin Chewable Tablet 162 mg Route: PO; ph 12:00 Follow up: Response: No adverse reaction ph 12:58 Drug: Lovenox 100 mg Route: Sub-Q; Site: left lower abdomen; ph 13:00 Follow up: Response: No adverse reaction ph 12:58 Drug: Pepcid 20 mg Route: IVP; Site: right antecubital; ph 13:00 Follow up: Response: No adverse reaction ph 12:58 Drug: morphine 4 mg Route: IVP; Site: right antecubital; ph 13:05 Follow up: Response: No adverse reaction ph 12:59 Drug: Zofran 4 mg Route: IVP; Site: right antecubital; ph 13:30 Follow up: Response: No adverse reaction ph Disposition: 11/16/18 12:31 Hospitalization ordered by Kumar Swanson for Observation. Preliminary diagnosis are Essential (primary) hypertension, Other chest pain, Obesity, unspecified. - Bed requested for Telemetry/MedSurg (observation). - Status is Observation. sg - Condition is Fair. - Problem is new. - Symptoms have improved. UTI on Admission? No Signatures: Dispatcher [employer] EDMyesha Daniels RN RN dw Justice Reynolds RN RN sg Jamil Parish MD MD cha Hall, Patricia, RN RN Santiago Joe RN RN Corrections: (The following items were deleted from the chart) 12:57 12:31 Hospitalization Ordered by Kumar Swanson MD for Observation. Preliminary diagnosis dw is Essential (primary) hypertension; Other chest pain; Obesity, unspecified. Bed requested for Telemetry/MedSurg (observation). Status is Observation. Condition is Fair. Problem is new. Symptoms have improved. UTI on Admission? No. jaime 14:32 12:57 11/16/2018 12:31 Hospitalization Ordered by Kumar Swanson MD for Observation. sg Preliminary diagnosis is Essential (primary) hypertension; Other chest pain; Obesity, unspecified. Bed requested for Telemetry/MedSurg (observation). Status is Observation. Condition is Fair. Problem is new. Symptoms have improved. UTI on Admission? No. dw
--- NOTE | 2018-11-16 12:32 | ER ---
Nurse's Notes [facility] Name: Bryan Watts Age: 52 yrs Sex: Male : 1965 Arrival Date: 11/16/2018 Time: 09:49 Bed 5 Private MD: Diagnosis: Essential (primary) hypertension;Other chest pain;Obesity, unspecified Presentation: 11/16 09:49 Presenting complaint: Patient states: i started having chest pain last night, stabbing hj pain, non radiating; pain is 10/10; reports SOB; reports headache and BP at home- 217/157; took clonidine and lisinopril but not helping;. Transition of care: patient was not received from another setting of care. Onset of symptoms was November 16, 2018. Risk Assessment: Do you want to hurt yourself or someone else? Patient reports no desire to harm self or others. Initial Sepsis Screen: Does the patient meet any 2 criteria? No. Patient's initial sepsis screen is negative. Does the patient have a suspected source of infection? No. Patient's initial sepsis screen is negative. Care prior to arrival: None. 09:49 Method Of Arrival: Ambulatory 09:49 Acuity: GABBY 3 hj Triage Assessment: 09:52 General: Appears in no apparent distress. uncomfortable, obese, Behavior is calm, hj cooperative, appropriate for age. Pain: Complains of pain in chest, head. Historical: - Allergies: 09:52 No Known Allergies; hj - PMHx: 09:52 Diabetes - IDDM; Hyperlipidemia; Hypertension; hj - PSHx: 09:52 right knee; hj - Immunization history:: Adult Immunizations up to date. - Social history:: Smoking status: Patient/guardian denies using tobacco, Patient/guardian denies using alcohol. - Ebola Screening: : Patient negative for fever greater than or equal to 101.5 degrees Fahrenheit, and additional compatible Ebola Virus Disease symptoms Patient denies exposure to infectious person Patient denies travel to an Ebola-affected area in the 21 days before illness onset. - Family history:: not pertinent. Screenin:00 Abuse screen: Denies threats or abuse. Denies injuries from another. Nutritional ph screening: No deficits noted. Tuberculosis screening: No symptoms or risk factors identified. Fall Risk None identified. Assessment: 10:29 General: Appears in no apparent distress. uncomfortable, obese, Behavior is calm, ph cooperative, appropriate for age, Denies fever, feeling ill. Pain: Complains of pain in mid-sternal area Pain does not radiate. Neuro: Level of Consciousness is awake, alert, obeys commands, Oriented to person, place, time, situation, Reports headache frontal area. Cardiovascular: Reports chest pain, shortness of breath, Capillary refill < 3 seconds in bilateral fingers Patient's skin is warm and dry. Rhythm is sinus rhythm Chest pain quality is heaviness, is located in substernal area. Respiratory: Airway is patent Respiratory effort is even, unlabored, Respiratory pattern is regular, symmetrical. GI: Patient currently denies abdominal pain, nausea, vomiting. Derm: Skin is intact, is healthy with good turgor, Skin is pink, warm \T\ dry. Musculoskeletal: Circulation, motion, and sensation intact. Range of motion: intact in all extremities. 11:33 Reassessment: Patient appears in no apparent distress at this time. Patient and/or ph family updated on plan of care and expected duration. Pain level reassessed. Patient is alert, oriented x 3, equal unlabored respirations, skin warm/dry/pink. Pt resting quietly, BP decreased slightly but remains elevated at 209/102, pt reports that chest has again increased to 8/10, denies nausea, ERP notified, see MAR. Vital Signs: 09:52 BP 227 / 141; Pulse 86; Resp 18; Temp 98.6(TE); Pulse Ox 99% on R/A; Weight 154.22 kg; Height 6 ft. 2 in. (187.96 cm); Pain 10/10; 10:30 BP 220 / 132; Pulse 88; Resp 20; Pulse Ox 97% ; ph 11:22 BP 210 / 116; Pulse 84; Resp 18; Pulse Ox 100% on R/A; ph 11:32 BP 209 / 102; Pulse 78; Resp 16; Pulse Ox 99% on R/A; ph 12:09 BP 182 / 86; Pulse 84; Resp 18; Pulse Ox 99% on R/A; ph 13:43 BP 184 / 89; Pulse 86; Resp 19; Temp 98.6; Pulse Ox 99% on R/A; sg 09:52 Body Mass Index 43.65 (154.22 kg, 187.96 cm) Vitals: 11:32 Cardiac Rhythm Assessment Sinus rhythm. ph ED Course: 09:49 Patient arrived in ED. as 09:51 Triage completed. hj 09:52 Arm band placed on left wrist. hj 09:56 Jamil Parish MD is Attending Physician. jaime 10:03 Alexa Saldaña, RN is Primary Nurse. ph 10:10 Patient has correct armband on for positive identification. Placed in gown. Bed in low sg position. Call light in reach. Side rails up X2. monitoring and evaluation advisor on. Pulse ox on. NIBP on. Warm blanket given. Head of bed elevated. 10:15 EKG done, by forest technician. reviewed by Jamil Parish MD. dt2 10:40 X-ray completed. Portable x-ray completed in exam room. Patient tolerated procedure jb2 well. 10:41 XRAY Chest (1 view) In Process Unspecified. EDMS 12:31 Kumar Swanson MD is Hospitalizing Provider. jaime 13:42 No provider procedures requiring assistance completed. Patient admitted, IV remains in sg place. intact, bleeding controlled, No redness/swelling at site. Pressure dressing applied, a 20 G to the RAC is noted. Administered Medications: 10:25 Drug: HydrALAZINE 25 mg Route: PO; ph 11:15 Follow up: Response: No adverse reaction ph 10:26 Drug: Lopressor (metoprolol TARTRATE) 50 mg Route: PO; ph 12:00 Follow up: Response: No adverse reaction ph 10:26 Drug: hydrALAZINE 10 mg Route: IV; Rate: per protocol; Site: right antecubital; ph 11:15 Follow up: Response: No adverse reaction; Blood pressure is unchanged; IV Status: ph Completed infusion 10:27 Drug: NS 0.9% 1000 ml Route: IV; Rate: 75 ml/hr; Site: right antecubital; ph 12:00 Follow up: IV Status: Infusion continued upon admission ph 10:50 Drug: Lopressor 5 mg Route: IVP; Site: right antecubital; ph 11:15 Follow up: Response: No adverse reaction; Blood pressure is unchanged ph 11:32 Drug: Lopressor 5 mg Route: IVP; Site: right antecubital; ph 12:00 Follow up: Response: No adverse reaction; Blood pressure is lowered ph 11:32 Drug: hydrALAZINE 20 mg Route: IV; Rate: per protocol; Site: right antecubital; ph 12:00 Follow up: Response: No adverse reaction; Blood pressure is lowered; IV Status: ph Completed infusion 11:32 Drug: Aspirin Chewable Tablet 162 mg Route: PO; ph 12:00 Follow up: Response: No adverse reaction ph 12:58 Drug: Lovenox 100 mg Route: Sub-Q; Site: left lower abdomen; ph 13:00 Follow up: Response: No adverse reaction ph 12:58 Drug: Pepcid 20 mg Route: IVP; Site: right antecubital; ph 13:00 Follow up: Response: No adverse reaction ph 12:58 Drug: morphine 4 mg Route: IVP; Site: right antecubital; ph 13:05 Follow up: Response: No adverse reaction ph 12:59 Drug: Zofran 4 mg Route: IVP; Site: right antecubital; ph 13:30 Follow up: Response: No adverse reaction ph Outcome: 12:31 Decision to Hospitalize by Provider. jaime 13:42 Admitted to Tele accompanied by tech, via wheelchair, room 205, with oxygen, with sg chart, Report called to Nannette Sullivan 13:42 Condition: stable 13:42 Instructed on the need for admit, safety practices, Demonstrated understanding of instructions. 14:32 Patient left the ED. sg Signatures: Dispatcher [employer] EDJustice Valencia RN RN sg Anderson, Corey, MD MD cha Buechter, Jesse jb2 Yasmin Ferreira Patricia, RN RN Santiago Joe RN RN hj Teague, Danielle dt2 Corrections: (The following items were deleted from the chart) 09:54 09:52 Pulse 86bpm; Resp 18bpm; Pulse Ox 99% RA; Temp 98.6F Temporal; 154.22 kg; Height hj 6 ft. 2 in.; BMI: 43.6; Pain 10/10; hj 09:55 09:52 Pulse 86bpm; Resp 18bpm; Pulse Ox 99% RA; Temp 98.6F Temporal; 154.22 kg; Height hj 6 ft. 2 in.; BMI: 43.6; Pain 10/10; hj
[2018-11-16] MEDS ORDERED: MORPHINE 4 MG/ML SYR ONE (12:59)
[2018-11-16] MEDS ORDERED: ONDANSETRON 4 MG/2 ML VIAL ONE (12:59)
[2018-11-16] MEDS ORDERED: ENOXAPARIN 100 MG/ML SYR SQ ONE (13:00)
[2018-11-16] MEDS ORDERED: FAMOTIDINE 20 MG/2 ML VIAL IV ONE (13:00)
[2018-11-16 13:10] LABS: Barbiturates NEGATIVE (NEGATIVE); Benzodiazepines NEGATIVE (NEGATIVE); Cocaine POSITIVE (NEGATIVE); METHAMPHETAM NEGATIVE (NEGATIVE); Methadone NEGATIVE (NEGATIVE); Opiates NEGATIVE (NEGATIVE); Phencyclidine NEGATIVE (NEGATIVE); THC Cannibis NEGATIVE (NEGATIVE)
[2018-11-16] MEDS ORDERED: NITROGLYCERIN 0.4 MG/TAB SL PRN (14:40)
[2018-11-16] MEDS ORDERED: ACETAMINOPHEN 500 MG TAB PO PRN (14:40)
[2018-11-16] MEDS ORDERED: MORPHINE 2 MG/ML SYR IV PRN (14:40)
[2018-11-16] MEDS ORDERED: GLUCAGON 1 MG/VIAL IM PRN (14:51)
[2018-11-16] MEDS ORDERED: D50W 25 GM/50 ML SYRINGE IV PRN (14:51)
[2018-11-16] MEDS ORDERED: HYDRALAZINE HCL 20 MG/ML VIAL IV PRN (14:55)
[2018-11-16] MEDS: ENOXAPARIN 40 MG/0.4 ML SQ SCH (14:55)
[2018-11-16 15:09] VITALS: BMI 43.6
[2018-11-16] MEDS: INSULIN -REGULAR HUMAN 50 UNIT/0.5 ML ML SQ SCH ×2 (16:30→21:00)
[2018-11-16] MEDS: HYDRALAZINE HCL 25 MG TABLET PO SCH ×2 (16:59→21:49)
[2018-11-16] MEDS ORDERED: METOPROLOL TAR 50 MG TAB PO SCH (21:00)
[2018-11-16] MEDS: DOXAZOSIN 2 MG TAB PO SCH (21:49)
--- NOTE | 2018-11-16 23:10 | HP ---
Date of Admission: 11/16/2018 Chief Complaint: Chest pain, uncontrolled blood pressure. Primary Care Physician: Out of town. History Of Present Illness: The patient is a 52-year-old male with past medical history of hypertens ion, apparent coronary artery disease with recent cardiac catheterization on 12/30/2017, with no sten ts placed and no history of stents either as well as osteoarthritis. The patient states that he has been taking his medications appropriately, comes in due to chest pain which was substernal, nonradiat ing, not associated with any nausea, vomiting. The patient did report some diaphoresis. The patient 's symptoms are constant, moderate, progressively worsening. His blood pressure was also out of cont rol with a systolic in the 200s. The patient came into the ER for further evaluation. Upon arrival, his vital signs showed a blood pressure of 227/141. He was given hydralazine and his blood pressure did improve to the 190s. The patient's workup showed negative troponin. EKG showed LVH. White blo od cell count was normal. Toxicology screen was positive for cocaine. The patient was then referred for admission. When seen in the ER, he was awake, alert, oriented x3, not in any acute distress. Past Medical History: Hypertension, hyperlipidemia, mild coronary artery disease, diabetes. Past Surgical History: Right knee surgery, artificial left eye, cardiac catheterization with no prev ious stents that could be seen and repeat cardiac catheterization in December of 2017. Allergies: NO KNOWN DRUG ALLERGIES. Medications: List reviewed. Social History: The patient denies any tobacco use or alcohol use. No use of illicit drugs. Roselia lane, his UDS was positive for cocaine. We will re-dress with the patient. Family History: Father had heart disease and hypertension. Review of Systems: An 11-point system reviewed, negative except as per HPI. Physical Examination: Vital Signs: Temperature 98.6, heart rate 86, blood pressure 227/141, respirations 18, O2 99% on yoli m air. General: Awake, alert, oriented x3. No acute distress. Morbidly obese male, BMI 43.7. HEENT: Normocephalic, atraumatic. PERRLA. EOMI. Moist mucous membranes. Oropharynx is clear. Po or dentition. Conjunctivae are anicteric. Neck: Supple. No JVD. Trachea midline. CV: S1, S2. No murmurs. Peripheral pulses present. Respiratory: Moving air well bilaterally. No wheezing or stridor. No use of accessory muscles. Gastrointestinal: Abdomen is soft, nontender, nondistended. Positive bowel sounds. Extremities: No clubbing, cyanosis, or edema. No calf tenderness. Neuro: Cranial nerves 2-12 intact grossly. No focal neurological deficit. Speech is normal. Stren gth is 5/5, bilateral upper and lower extremities. Skin: No rashes. Normal skin turgor. Psych: Mood is okay. Affect is full. Insight and judgment are fair. Laboratory Data: Sodium 141, potassium 4.1, chloride 108, CO2 25, BUN 12, creatinine 1.2, glucose 11 8, calcium 8.6, magnesium 2. Rapid troponin 0.02. BNP 391. INR 0.99. WBC 4.1, H and H 15.2 and 47 .3, platelets 219. UA, pending. UDS positive for cocaine. Chest x-ray personally reviewed shows no acute intrathoracic process suspected. Assessment And Plan: A 52-year-old male with: 1.Chest pain, unstable angina, may be related to hypertensive emergency. The patient has had a hear t cath in December of 2017 with minimal disease. No stents required and no evidence of previous stents. Cardiology has been consulted. We will repeat cardiac enzymes and EKG serially to rule out ACS. May also be related to apparent cocaine use. 2.Hypertensive emergency. Blood pressure in the 200s/ 100s, causing chest pain. We will obtain ech ocardiogram. Blood pressure is improved. We will resume home medications. Add hydralazine p.r.n. 3.Apparent cocaine use. The patient denied any illicit drug use upon questioning. We will avoid be ta blockers. 4.Morbid obesity, BMI 43.7. 5.Hyperlipidemia. Continue with statin. 6.Diabetes mellitus, type 2, [id number], with hyperglycemia. We will start on sliding sc star insulin and check hemoglobin A1c. Monitor Accu-Cheks. 7.DVT prophylaxis with Lovenox. Admit the patient to med-surg, place as observation. CEASAR Voice ID: [id number]
[2018-11-17] MEDS: ONDANSETRON 4 MG/2 ML VIAL IV PRN ×2 (00:44→17:40)
[2018-11-17 06:28] LABS: Absolute Lymphocytes (CBC) 1.5 K/uL (0.7-4.9); Absolute Monocytes 0.5 K/uL (0.1-1.3); Absolute Neutrophil 2.8 K/uL (1.8-8.0); Basophils % 0.3 % (0-1.3); Eosinophils % 0.3 % (0-4.4); Hematocrit 44.2 % (39.6-49.0); Lymphocytes % 30.8 % (15.3-44.8); MPV 9.1 fL (7.6-11.3); Monocytes % 9.7 % (3.3-12.3); RBC Red Blood Cell Count 5.75 M/uL (4.33-5.43)
[2018-11-17] MEDS: INSULIN -REGULAR HUMAN 50 UNIT/0.5 ML ML SQ SCH ×4 (07:30→20:21)
[2018-11-17] MEDS: ASPIRIN EC 81 MG TAB PO SCH (09:00)
[2018-11-17] MEDS: ENOXAPARIN 40 MG/0.4 ML SQ SCH (09:11)
[2018-11-17] MEDS: HYDRALAZINE HCL 25 MG TABLET PO SCH ×4 (09:12→20:21)
[2018-11-17] MEDS: AMLODIPINE 10 MG TAB PO SCH (09:12)
[2018-11-17] MEDS: LISINOPRIL 20 MG TAB PO SCH (09:12)
[2018-11-17] MEDS: FUROSEMIDE 40 MG TABLET PO SCH (09:13)
[2018-11-17] MEDS: DOXAZOSIN 2 MG TAB PO SCH ×2 (09:13→20:20)
[2018-11-17] MEDS ORDERED: REGADENOSON 0.4 MG/5 ML SYR IV ONE (10:55)
--- NOTE | 2018-11-17 12:50 | ECHO ---
HEIGHT: 6 ft 2 in WEIGHT: 340 lb 0 oz DATE OF STUDY: 11/17/[address]: Jamil Parish MD 2-DIMENSIONAL: YES M.MODE: YES DOPPLER: YES COLOR FLOW: YES TDS: NO PORTABLE: NO DEFINITY: NO BUBBLE STUDY: NO DIAGNOSIS: CHEST PAIN CARDIAC HISTORY: CATHERIZATION: NO SURGERY: NO PROSTHETIC VALVE: NO PACEMAKER: NO MEASUREMENTS (cm) DIASTOLIC (NORMALS) SYSTOLIC (NORMALS) IVSd 1.5 (0.6-1.2) LA Diam 4.1 (1.9-4.0) LVEF 42% LVIDd 5.0 (3.5-5.7) LVIDs 4.0 (2.0-3.5) %FS 20% LVPWd 1.9 (0.6-1.2) Ao Diam 3.3 (2.0-3.7) 2 DIMENSIONAL ASSESSMENT: RIGHT ATRIUM: NORMAL LEFT ATRIUM: DILATED RIGHT VENTRICLE: NORMAL LEFT VENTRICLE: LEFT VENTRICULAR HYPERTROPHY TRICUSPID VALVE: NORMAL MITRAL VALVE: NORMAL PULMONIC VALVE: NORMAL AORTIC VALVE: NORMAL PERICARDIAL EFFUSION: NONE AORTIC ROOT: NORMAL LEFT VENTRICULAR WALL MOTION: NORMAL DOPPLER/COLOR FLOW: TRACE MITRAL REGURGITATION, OTHERWISE NORMAL. COMMENTS: NORMAL LEFT VENTRICULAR EJECTION FRACTION. DILATED LEFT ATRIUM. LEFT VENTRICULAR HYPERTROPHY. TRACE MITRAL REGURGITATION. TECHNOLOGIST: Andre VILLATORO
--- NOTE | 2018-11-17 13:05 | RAD REPORT ---
EXAM DESCRIPTION: NM - Rest Stress Cardiac Imaging - 11/17/2018 12:56 pm CLINICAL HISTORY: CP Chest pain. COMPARISON: Rest Stress Cardiac Imaging dated 01/28/2017 TECHNIQUE: The patient was administered approximately 10mCi of Tc 99m Sestamibi prior to resting SPE CT imaging of the heart. The patient was then administered approximately 30 mCi of Tc 99m Sestamibi f ollowing exercise or pharmacologic stress. Multiplanar SPECT images were reviewed. FINDINGS: There is a moderate sized area of moderate stress-induced ischemia is seen along the later al wall. No fixed defect is seen to suggest hibernating myocardium or scarred myocardium. The end diastolic volume is 172 ml, the end systolic volume is 123 ml, and the ejection fraction is 2 9 %. IMPRESSION: Moderate sized area of moderately severe stress-induced ischemia along the lateral wall is seen. Diminished ejection fraction of 29%.
--- NOTE | 2018-11-17 13:48 | CON ---
Chief Complaint: Chest pain. History Of Present Illness: Mr. Watts is 52. He has morbid obesity, diabetes, hypertension. Sever al years ago cardiac cath was done. The patient does not know if he had a stent or not. He is just not sure, but he does not see the doctor who did it that was Dr. Stiles. The chest pain he had tend ed to occur first thing in the morning when he woke up and was gone during the day when he was active . Outpatient Medications: Amlodipine, metformin, nitroglycerin, hydralazine, lisinopril, doxazosin, an d furosemide. He is not on a statin drug, not on antianginal drug. Allergies: HE HAS NO ALLERGIES. Physical Examination: Vital Signs: 6 feet 2 inches, 340 pounds. HEENT: Normal. Lungs: Clear. Heart: Within normal limits. Abdomen: Soft. Extremities: Palpable distal pulses. Social History: The patient denies tobacco use. Diagnostic Studies: His EKG shows sinus rhythm, first degree AV block, pulmonary disease pattern and possible inferior infarct and LVH. Impression: This is probably noncardiac pain. He has so many risk factors. We should probably do a nuclear stress test before discharging him. AISSATOU/RIAZ Voice ID: [id number] Report ID: [id number]
[2018-11-17] MEDS ORDERED: METOPROLOL TAR 50 MG TAB PO ONE (17:00)
--- NOTE | 2018-11-17 19:23 | PN ---
Date of Progress Note: 11/17/2018 History: The patient is seen and examined. Chart reviewed and case discussed with RN. The patient denies any significant chest pain. States he feels better. Going for stress test today. Medications: List reviewed. Physical Examination: Vital Signs: Temperature 97.7, heart rate 115, blood pressure 168/95, respirations 18, O2 96% on yoli m air. General: Awake, alert, oriented x3. Some mild distress, morbidly obese male. BMI of 43. CV: S1, S2. Sinus tachycardia. Peripheral pulses present. Respiratory: Moving air well bilaterally. No wheezing or stridor. Gastrointestinal: Abdomen is soft, nontender, nondistended. Positive bowel sounds. Extremities: No clubbing, cyanosis, or edema. Neurologic: Nonfocal. Laboratory Data: Sodium 140, potassium 4, chloride 109, CO2 24, BUN 13, creatinine 1.23, glucose 114 , calcium 8.5, triglycerides 113, cholesterol 179, LDL 118, HDL 38. WBC 4.8, H and H 14 and 44.2, pl atelets 206, neutrophils 58%. Urine culture shows no growth. Echocardiogram shows EF of 42%, dilate d left atrium, left ventricular hypertrophy. Trace mitral regurg. Stress test shows moderate-sized area of moderately severe stress induced ischemia along the lateral wall. Assessment And Plan: A 52-year-old male with: 1.Unstable angina. Stress test is positive with severe stress-induced ischemia seen. EF is depress ed at 42%. Appreciate Dr. Borrego' input. May need cardiac catheterization. 2.Hypertensive emergency with chest pain. Blood pressure now has significantly improved. Home medi cations have been adjusted. 3.Hypertensive heart disease. 4.Apparent cocaine use, avoid beta-blockers. 5.Morbid obesity, BMI 43.7. 6.Mixed hyperlipidemia. We will continue statin. 7.Diabetes mellitus type 2 tre-ikvbnpo-hqnxjkxch with hyperglycemia. We will check hemoglobin A1c. Continue to monitor blood glucose levels. 8.Deep vein thrombosis prophylaxis with Lovenox. Plan: Follow up with Cardiology recommendations. The patient likely needs further workup including heart catheterization. SA/MODL Voice ID: [id number] Report ID: [id number]
[2018-11-17] MEDS: METOPROLOL TAR 50 MG TAB PO SCH (20:21)
[2018-11-18] MEDS: ONDANSETRON 4 MG/2 ML VIAL IV PRN (03:18)
[2018-11-18] MEDS: AMLODIPINE 10 MG TAB PO SCH (05:26)
[2018-11-18] MEDS: HYDRALAZINE HCL 25 MG TABLET PO SCH ×2 (05:26→14:10)
[2018-11-18] MEDS: DOXAZOSIN 2 MG TAB PO SCH (05:27)
[2018-11-18] MEDS: METOPROLOL TAR 50 MG TAB PO SCH (05:27)
[2018-11-18] MEDS: LISINOPRIL 20 MG TAB PO SCH (05:27)
[2018-11-18] MEDS: ASPIRIN EC 81 MG TAB PO SCH (05:30)
[2018-11-18] MEDS ORDERED: HEPA 1000U/500MLS 2,000 UNIT/1,000 ML BAG IV ONE (07:15)
[2018-11-18] MEDS: INSULIN -REGULAR HUMAN 50 UNIT/0.5 ML ML SQ SCH ×2 (07:30→11:30)
[2018-11-18 08:08] VITALS: TEMP 97.3
[2018-11-18] MEDS: ENOXAPARIN 40 MG/0.4 ML SQ SCH (08:16)
[2018-11-18] MEDS: FUROSEMIDE 40 MG TABLET PO SCH (08:17)
--- NOTE | 2018-11-18 08:17 | TREADPHA ---
DX: CHEST PAIN Date of Study: 11/17/2018 Ht: 6 2 Wt: 340 lb 0 oz Consulting Physician: MEDICATIONS: TYLENOL, ASPIRIN, NORVASC, DEXTROSE, LOVENOX, LASIX, GLUCAGEN HISTORY: 52 YEAR OLD MALE WITH COMPLAINTS OF CHEST PAIN. MEDICAL HISTORY OR DIABETES MELLITIS, HIGH CHOLESTEROL, TACHYCARDIA. PHYSICIAL EXAMINATION: RESTING B.P.: 174/100 RESTING H.R.: 111 RESTING EKG: SINUS TACHYCADIA. PULMONARY DISEASE PATTERN. INCOMPLETE RIGHT BUNDLE BRANCH BLOCK. PROTOCOL: LEXISCAN EXERCISE TIME: 3:30 B.P. AT PEAK STRESS: 178/83 IMPRESSION: LEXISCAN INJECTED, CARDIOLITE INJECTED PER PROTOCOL. SEE NUCLEAR MEDICINE REPORT. NO SUPRAVENTRICULAR TACHYCARDIA, NO VENTRICULAR TACHYCARDIA. FREQUENT PREMATURE VENTRICULAR COMPLEXES. DENIED CHEST PAIN. NON DIAGNOSTIC EKG WITH LEXISCAN STRESS.
--- NOTE | 2018-11-18 09:02 | EKG ---
Test Date: 2018-11-17 Test Time: 21:17:14 Soaking Pit Operator: ANITHA MEASUREMENT RESULTS: Intervals: Rate: 90 TN: 254 QRSD: 116 QT: 404 QTc: 494 Isola: P: 69 TN: 254 QRS: -46 T: 77 INTERPRETIVE STATEMENTS: Sinus rhythm with 1st degree AV block Left axis deviation Incomplete right bundle branch block Abnormal ECG Compared to ECG 11/16/2018 10:05:51 Left-axis deviation now present Incomplete right bundle-branch block now present Atrial abnormality no longer present Electronically Signed On 11-18-18 09:02:00 CDT by Kunal Borrego
[2018-11-18] MEDS ORDERED: MIDAZOLAM HCL 2 MG/2 ML INJ ONE ×3 (09:18→09:44)
[2018-11-18] MEDS ORDERED: NA CHLORIDE 0.9% 500 ML ONE (09:18)
[2018-11-18] MEDS ORDERED: NA CHLORIDE 0.9% 0 ML IV ONE (09:19)
[2018-11-18] MEDS ORDERED: LIDOCAINE 1% MPF 30 ML VIAL ONE (09:19)
[2018-11-18] MEDS ORDERED: ATROPINE SULF 1 MG/10 ML SYR IV ONE (09:19)
[2018-11-18] MEDS ORDERED: FENTANYL CITR 100 MCG/2 ML ONE (09:19)
[2018-11-18] MEDS ORDERED: NICARDIPINE HCL 25 MG/10 ML IV ONE (09:27)
[2018-11-18] MEDS ORDERED: HEPARIN 5000 UNIT/ML 1 ML VIAL ONE (09:27)
[2018-11-18] MEDS ORDERED: NITROGLYCERIN 100 MCG/ML SYR (for cath lab use only) IV ONE (09:27)
[2018-11-18] MEDS ORDERED: NITROGLYCERIN/D5W 25 MG/250 ML BTL IV ONE (09:28)
[2018-11-18] MEDS ORDERED: METOPROLOL TARTRATE 5 MG/5 ML INJ IV ONE (09:48)
[2018-11-18 11:26] VITALS: O2SAT 94
[2018-11-18 13:09] VITALS: BP 122/79
--- NOTE | 2018-11-18 20:34 | OP ---
Surgeon: Kunal Borrego MD Procedures: Left heart catheterization, coronary and left ventricular angiography. Findings: The patient has very large coronary vessels, severe tortuosity in the right coronary arter y, but mild tortuosity elsewhere. Normal left ventricular ejection fraction, normal pressures. Procedure In Detail: The patient was brought to the cardiac label maker in a fasting state, sedated wit h Versed and fentanyl, titrated to an adequate level of sedation. Right radial approach was used. T he radial artery tissues were anesthetized with 1% lidocaine, entered with a 21-gauge needle, cannula breanne with a 0.021 inch diameter guidewire, and then using the modified Seldinger technique, a 6-Italian dilitronicsum2NDNATURE radial sheath was placed. Sheath was flushed and a radial cocktail was given consisting of n icardipine, heparin, nitroglycerin. We guided a TIG catheter into the ascending aorta using a Glidew anaya and fluoroscopy. We were able to angiogram right coronary, left coronary, left ventricle with th e same catheter. At the end of the procedure, when the decision was made not to do an intervention, the catheter was withdrawn over a J-wire. The sheath was removed. Arteriotomy closed with a large T R band. Engine Boss: Camila Florence. Estimated Blood Loss: 5 cc. AISSATOU/RIAZ Voice ID: [id number] Report ID: [id number]
--- NOTE | 2018-11-19 02:43 | DS ---
Date of Discharge: 11/18/2018 Grain Merchandiser: Dr. Borrego with Cardiology. Procedures: On 11/17/2018, cardiac stress test, abnormal. Cardiac catheterization on 11/18/2018, wi th normal coronaries. Admitting Diagnoses: 1.Chest pain. 2.Hypertensive emergency. 3.Morbid obesity, BMI 43.7. 4.Apparent cocaine use. 5.Hyperlipidemia. 6.Diabetes mellitus, type 2, rgu-ltfcwrd-vcimrpyyl. Discharge Diagnoses: 1.Stable angina. Cardiac cath, negative. 2.Hypertensive emergency with chest pain. Blood pressure improved. 3.Hypertensive heart disease. 4.Apparent cocaine use. 5.Morbid obesity, BMI 43.7. 6.Mixed hyperlipidemia, on statin. 7.Diabetes mellitus, type 2, nph-ecbgoxk-hshfvnqbz, with hyperglycemia. Hospital Course: The patient is a 52-year-old male with past medical history of hypertension, diabet es, morbid obesity, who had a cardiac catheterization approximately 1 year ago with normal coronaries . The patient comes in with chest pain and blood pressure in the 220s/140s. The patient had hyperte nsive emergency. Echo was done, which showed LVH, normal EF. His blood pressure medications were ad justed and blood pressure improved. The patient's cardiac enzymes were negative. Cardiac stress cathy t was done, which was positive and Dr. Borrego with Cardiology recommended cardiac catheterization. T he patient had a cardiac catheterization done and was negative with normal coronaries. The patient w as then cleared for discharge. Followup: The patient to follow up with PCP in 2-3 days. Follow up with mineral resources inspector, Dr. Borrego, i n 2 weeks. Return to ER for worsening condition. Diet: Diabetic. Activity: As tolerated. Medications: As per medication reconciliation list. Physical Examination: General: Awake, alert, oriented x3. No acute distress. Morbidly obese male. CV: S1, S2. Regular rate and rhythm. Peripheral pulses present. Respiratory: Moving air well bilaterally. No wheezing or stridor. No use of accessory muscles. Gastrointestinal: Abdomen is soft, nontender, nondistended. Positive bowel sounds. No guarding or rigidity. Extremities: No clubbing, cyanosis, or edema. Neurologic: Nonfocal. The patient was counseled regarding his cocaine use. The patient was also informed to hold his metfo rmin for the next 48 hours due to contrast. Total time spent discharging the patient was 36 minutes. SA/MODL Voice ID: [id number] Report ID: [id number]
== END 2018-11-18 16:16 | disposition home or self-care (01) | DRG 287 ==
LOC: ER 09:47 → ERHOLD 12:35 → 2ND 13:43 → OBSVTOIN 11-17 14:41
PROVIDERS: ADMIT Family Medicine; ATTEND Family Medicine
PROC: 4A023N7 Measurement of Cardiac Sampling and Pressure, Left Heart, Percutaneous Approach (ICD-10-PCS; principal; 2018-11-18)
PROC: B2111ZZ Fluoroscopy of Multiple Coronary Arteries using Low Osmolar Contrast (ICD-10-PCS; 2018-11-18)
PROC: B2151ZZ Fluoroscopy of Left Heart using Low Osmolar Contrast (ICD-10-PCS; 2018-11-18)
DX: I20.9 Angina pectoris, unspecified (principal); I16.1 Hypertensive emergency; Z68.41 Body mass index [BMI] 40.0-44.9, adult; F14.90 Cocaine use, unspecified, uncomplicated; E66.01 Morbid (severe) obesity due to excess calories; E11.65 Type 2 diabetes mellitus with hyperglycemia; I44.0 Atrioventricular block, first degree; I11.9 Hypertensive heart disease without heart failure; E78.2 Mixed hyperlipidemia; Z79.84 Long term (current) use of oral hypoglycemic drugs
CPT/HCPCS: 36415; 71045; 78452; 80048; 80061; 80076; 80307; 82962; 83690; 83735; 83880; 84484; 85025; 85610; 87086; 87088; 93005; 93017; 93306; 93458; 94760; 96365; 96372; 96375; 99285; A9500; C1893; G0378; J0360; J0583; J1644; J1650; J2250; J2270; J2405; J2785; J3010; J7030

== ENCOUNTER 2020-10-20 15:03 | Emergency (ER) | payer OTHER ==
--- OUTSIDE RECORDS SUMMARY | 2020-10-20 15:06 | XMS REPORT | Continuity of Care Document ---
:1965 Author Organization [facility] t Address [address] [place] [address] Care Team Providers Name Role Phone Ruben BOYER Attending Clinician Doctor Unassigned, Name Attending Clinician Unavailable Nicola BAKER Attending Clinician Problems This patient has no known problems. Allergies, Adverse Reactions, Alerts This patient has no known allergies or adverse reactions. Medications This patient has no known medications. Procedures This patient has no known procedures. Encounters Start End Encounter Admission Attending Care Care Encounter Source Date/Time Date/Time Type Type Clinicians Facility Department ID 2020-10-20 2020-10-20 [id number] 09:32:00 11:54:00 Mac Grover [id number] [place] [id number] [place] [id number] 2020-10-20 2020-10-20 Orders Doctor EDMUND [id number] 00:00:00 00:00:00 Only UnassignedKYLE [id number] [place] [facility] [id number] 2020-10-16 2020-10-16 Transition Sridhar Petersen [id number] 00:00:00 00:00:00 of Care Adilene Jiang [id number] [place] [id number] 2020-05-29 2020-05-29 Inpatient E [facility] [id number] 05:06[facility]00 [facility]46[facility] Results This patient has no known results.
[2020-10-20 16:53] LABS: Absolute Lymphocytes (CBC) 1.9 K/uL (0.7-4.9); Hematocrit 45.4 % (39.6-49.0); Lymphocytes % 32.9 % (15.3-44.8); RBC Red Blood Cell Count 5.83 M/uL (4.33-5.43)
[2020-10-20 17:10] LABS: Albumin 3.8 g/dL (3.4-5.0); Bilirubin Direct 0.1 mg/dL (0-0.2); Bilirubin Total 0.5 mg/dL (0.2-1.0); Protein, Total 8.3 g/dL (6.4-8.2)
[2020-10-20] MEDS ORDERED: ONDANSETRON 4 MG/2 ML VIAL ONE (17:21)
[2020-10-20] MEDS ORDERED: NA CHLORIDE 0.9% 1,000 ML ONE (17:21)
--- NOTE | 2020-10-20 17:38 | RAD REPORT ---
EXAM DESCRIPTION: CT - Stone Protocol - 10/20/2020 5:20 pm CLINICAL HISTORY: Flank pain. difficulty urinating COMPARISON: Abdomen Pelvis Wo Contrast dated 10/26/2017 TECHNIQUE: Axial images were obtained without oral or IV contrast. Lack of contrast limits solid org an and vascular assessment. The xdtsy-kd-opeo spans the entirety of the system partially obscuring uppermost abdomen and lung bases. Coronal reformatted images were obtained and reviewed. All CT scans are performed using dose optimization technique as appropriate and may include automated exposure control or mA/KV adjustment according to patient size. FINDINGS: The lower lung aragon are clear. Imaged portions of the liver and spleen show no suspicious findings on non-contrast imaging. The panc reas and adrenal glands are normal. No pathologic lymphadenopathy in the abdomen or pelvis. Small fat containing umbilical hernia. No urinary tract stones or obstructive uropathy. No bowel obstruction, free air, free fluid or abscess. Normal appendix noted. Significant diverticulo sis is identified in the sigmoid colon region. Subtle surrounding inflammation is suspected the lower abdomen suggesting early/ mild acute diverticulitis. No significant bony abnormality. IMPRESSION: No urinary tract stones or obstructive uropathy. A mild/early acute diverticulitis is possible. Suggest followup colonoscopy if not recently performed .
--- NOTE | 2020-10-20 18:22 | ER ---
Nurse's Notes [facility] Name: Bryan Watts Age: 54 yrs Sex: Male : 1965 Arrival Date: 10/20/2020 Time: 15:04 Bed 15 Private MD: Diagnosis: Diverticulitis of intestine, part unspecified, without perforation or abscess without bleeding Presentation: 10/20 15:16 Chief complaint: Patient states: N/V since 0400. Reports pain on R side, and R flank ca1 pain. Every time I eat, I throw up and I feel dizzy. Coronavirus screen: Client denies travel out of the [place] in the last 14 days. nausea, vomiting. Client presents with at least one sign or symptom that may indicate coronavirus-19. Standard/surgical mask placed on the client. Provider contacted for isolation considerations. Ebola Screen: Patient negative for fever greater than or equal to 101.5 degrees Fahrenheit, and additional compatible Ebola Virus Disease symptoms Patient denies exposure to infectious person. Patient denies travel to an Ebola-affected area in the 21 days before illness onset. No symptoms or risks identified at this time. Initial Sepsis Screen: Does the patient meet any 2 criteria? No. Patient's initial sepsis screen is negative. Does the patient have a suspected source of infection? No. Patient's initial sepsis screen is negative. Risk Assessment: Do you want to hurt yourself or someone else? Patient reports no desire to harm self or others. Onset of symptoms was October 20, 2020. 15:16 Method Of Arrival: Ambulatory ca1 15:16 Acuity: GABBY 3 ca1 Historical: - Allergies: 15:19 No Known Allergies; ca1 - PMHx: 15:19 Hyperlipidemia; Hypertension; Diabetes - NIDDM; ca1 - PSHx: 15:19 right knee; ca1 - Immunization history:: Flu vaccine is up to date. - Social history:: Smoking status: Patient denies any tobacco usage or history of. Screenin:30 Abuse screen: Denies threats or abuse. Denies injuries from another. Nutritional zb screening: No deficits noted. Tuberculosis screening: No symptoms or risk factors identified. Fall Risk None identified. Assessment: 16:28 General: Appears in no apparent distress. comfortable, Behavior is cooperative, zb appropriate for age, anxious, Reports fatigue for Denies fever, chills. Pain: Complains of pain in right mid back and right low back Pain does not radiate. Pain currently is 2 out of 10 on a pain scale. Quality of pain is described as aching, tender, Pain began 1 day ago. Neuro: Level of Consciousness is awake, alert, obeys commands, Oriented to person, place, time, situation. Cardiovascular: Capillary refill < 3 seconds Patient's skin is warm and dry. Respiratory: Airway is patent Respiratory effort is even, unlabored, Respiratory pattern is regular, symmetrical. GI: Abdomen is flat. GI: Abdomen is round Bowel sounds present X 4 quads. Abd is soft and non tender X 4 quads. GI: Reports intolerance of food, nausea, vomiting. : No signs and/or symptoms were reported regarding the genitourinary system. EENT: No signs and/or symptoms were reported regarding the EENT system. Derm: Skin is intact, is healthy with good turgor, Skin is dry, Skin is normal, Skin temperature is warm. Musculoskeletal: Range of motion: intact in all extremities. 16:55 Reassessment: ECP at bedside. zb 17:30 Reassessment: Patient appears in no apparent distress at this time. Patient and/or zb family updated on plan of care and expected duration. Pain level reassessed. Patient is alert, oriented x 3, equal unlabored respirations, skin warm/dry/pink. 18:57 Reassessment: Patient appears in no apparent distress at this time. Patient and/or zb family updated on plan of care and expected duration. Pain level reassessed. Patient is alert, oriented x 3, equal unlabored respirations, skin warm/dry/pink. d/c instructions given. gait steady and even. pt up at shara. Vital Signs: 15:16 BP 115 / 80; Pulse 93; Resp 16 S; Temp 97.6(TE); Pulse Ox 100% on R/A; Weight 151.95 kg ca1 (R); Height 6 ft. 2 in. (187.96 cm) (R); Pain 0/10; 17:00 BP 127 / 76; Pulse 89; Resp 16; Pulse Ox 100% on R/A; zb 18:57 BP 127 / 82; Pulse 87; Resp 16; Pulse Ox 99% on R/A; zb 15:16 Body Mass Index 43.01 (151.95 kg, 187.96 cm) ca1 ED Course: 15:04 Patient arrived in ED. as 15:18 Triage completed. ca1 15:19 Arm band placed on right wrist. ca1 16:14 Taylor De Jesus, RN is Primary Nurse. zb 16:19 Gala Mane FNP-C is PHCP. kb 16:19 Jamil Parish MD is Attending Physician. kb 16:31 Patient has correct armband on for positive identification. Bed in low position. Call zb light in reach. Side rails up X 1. Pulse ox on. NIBP on. Door closed. Noise minimized. 16:43 Inserted saline lock: 20 gauge in left antecubital area, using aseptic technique. Blood zb collected. 17:20 CT Stone Protocol In Process Unspecified. EDMS 18:58 No provider procedures requiring assistance completed. IV discontinued, intact, zb bleeding controlled, No redness/swelling at site. Pressure dressing applied. Administered Medications: 17:09 Drug: NS 0.9% 1000 ml Route: IV; Rate: 1000 ml; Site: left antecubital; zb 18:54 Follow up: Response: No adverse reaction; Marked relief of symptoms; IV Status: zb Completed infusion; IV Intake: 1000ml 17:09 Drug: Zofran (Ondansetron) 4 mg Route: IVP; Site: left antecubital; zb 17:45 Follow up: Response: No adverse reaction; Nausea is decreased zb 18:50 Drug: Ciprofloxacin 500 mg Route: PO; zb 18:55 Follow up: Response: No adverse reaction zb 18:50 Drug: Flagyl 500 mg Route: PO; zb 18:56 Follow up: Response: Medication administered at discharge. zb Intake: 18:54 IV: 1000ml; Total: 1000ml. zb Outcome: 18:21 Discharge ordered by . kb 18:58 Discharged to home ambulatory. zb 18:58 Condition: stable 18:58 Discharge instructions given to patient, Instructed on discharge instructions, follow up and referral plans. medication usage, Demonstrated understanding of instructions, follow-up care, medications, Prescriptions given X 3. 18:58 Patient left the ED. zb Signatures: Dispatcher [employer] EDMS Gala Mane FNP-C FNP-Ckb Martinez, Amelia as Acob, Arminda, RN RN ca1 Taylor De Jesus, RN RN zb
--- NOTE | 2020-10-20 18:22 | EDPHYS ---
Physician Documentation [facility] Name: Bryan Watts Age: 54 yrs Sex: Male : 1965 Arrival Date: 10/20/2020 Time: 15:04 Bed 15 Private MD: ED Physician Jamil Parish HPI: 10/20 18:33 This 54 yrs old Black Male presents to ER via Ambulatory with complaints of kb Nausea/Vomiting, Abdominal Pain. 18:33 The patient presents to the emergency department with nausea, vomiting. Onset: The kb symptoms/episode began/occurred yesterday. Possible causes: unknown. The symptoms are aggravated by food , The symptoms are alleviated by nothing. Associated signs and symptoms: Pertinent positives: nausea, vomiting, Pertinent negatives: abdominal pain, constipation, diarrhea, fever, GI bleeding. Severity of symptoms: At their worst the symptoms were mild in the emergency department the symptoms are unchanged. The patient has not experienced similar symptoms in the past. The patient has not recently seen a physician. Pt reports nausea and vomiting that started yesterday. States when he vomited again this morning he knew something was wrong and he needed to come in. Denies abd pain, fever, diarrhea, constipation. Historical: - Allergies: 15:19 No Known Allergies; ca1 - PMHx: 15:19 Hyperlipidemia; Hypertension; Diabetes - NIDDM; ca1 - PSHx: 15:19 right knee; ca1 - Immunization history:: Flu vaccine is up to date. - Social history:: Smoking status: Patient denies any tobacco usage or history of. ROS: 18:32 Constitutional: Negative for fever, chills, and weight loss, Cardiovascular: Negative kb for chest pain, palpitations, and edema, Respiratory: Negative for shortness of breath, cough, wheezing, and pleuritic chest pain, MS/Extremity: Negative for injury and deformity, Skin: Negative for injury, rash, and discoloration, Neuro: Negative for headache, weakness, numbness, tingling, and seizure. 18:32 Abdomen/GI: Positive for nausea and vomiting, Negative for abdominal pain, diarrhea. Exam: 18:32 Constitutional: This is a well developed, well nourished patient who is awake, alert, kb and in no acute distress. Head/Face: Normocephalic, atraumatic. Cardiovascular: Regular rate and rhythm with a normal S1 and S2. No gallops, murmurs, or rubs. No pulse deficits. Respiratory: Respirations even and unlabored. No increased work of breathing, no retractions or nasal flaring. Abdomen/GI: Soft, non-tender. No distention Skin: Warm, dry with normal turgor. Normal color. MS/ Extremity: Pulses equal, no cyanosis. Neurovascular intact. Full, normal range of motion. Neuro: Awake and alert, GCS 15, oriented to person, place, time, and situation. Moves all extremities. Normal gait. Vital Signs: 15:16 BP 115 / 80; Pulse 93; Resp 16 S; Temp 97.6(TE); Pulse Ox 100% on R/A; Weight 151.95 kg ca1 (R); Height 6 ft. 2 in. (187.96 cm) (R); Pain 0/10; 17:00 BP 127 / 76; Pulse 89; Resp 16; Pulse Ox 100% on R/A; zb 18:57 BP 127 / 82; Pulse 87; Resp 16; Pulse Ox 99% on R/A; zb 15:16 Body Mass Index 43.01 (151.95 kg, 187.96 cm) ca1 MDM: 16:21 Patient medically screened. kb 18:32 Data reviewed: vital signs, nurses notes. Data interpreted: Pulse oximetry: on room air kb is 100 %. Interpretation: normal. Counseling: I had a detailed discussion with the patient and/or guardian regarding: the historical points, exam findings, and any diagnostic results supporting the discharge/admit diagnosis, lab results, radiology results, the need for outpatient follow up, a family practitioner, to return to the emergency department if symptoms worsen or persist or if there are any questions or concerns that arise at home. 10/20 15:35 Order name: Glucose, Ancillary Testing; Complete Time: 16:21 EDMS 10/20 16:21 Order name: Basic Metabolic Panel; Complete Time: 18:05 kb 10/20 16:21 Order name: CBC with Diff; Complete Time: 16:58 kb 10/20 16:21 Order name: Hepatic Function; Complete Time: 18:05 kb 10/20 16:21 Order name: Lipase; Complete Time: 18:05 kb 10/20 16:59 Order name: CT Stone Protocol; Complete Time: 18:05 kb 10/20 16:21 Order name: IV Saline Lock; Complete Time: 16:43 kb 10/20 16:21 Order name: Labs collected and sent; Complete Time: 16:43 kb Administered Medications: 17:09 Drug: NS 0.9% 1000 ml Route: IV; Rate: 1000 ml; Site: left antecubital; zb 18:54 Follow up: Response: No adverse reaction; Marked relief of symptoms; IV Status: zb Completed infusion; IV Intake: 1000ml 17:09 Drug: Zofran (Ondansetron) 4 mg Route: IVP; Site: left antecubital; zb 17:45 Follow up: Response: No adverse reaction; Nausea is decreased zb 18:50 Drug: Ciprofloxacin 500 mg Route: PO; zb 18:55 Follow up: Response: No adverse reaction zb 18:50 Drug: Flagyl 500 mg Route: PO; zb 18:56 Follow up: Response: Medication administered at discharge. zb Disposition: 10/21 01:24 Co-signature as Attending Physician, Jamil Parish MD I agree with the assessment and jaime plan of care. Disposition: 10/20/20 18:21 Discharged to Home. Impression: Diverticulitis of intestine, part unspecified, without perforation or abscess without bleeding. - Condition is Stable. - Discharge Instructions: Diverticulitis, Mhwm-dg-Daxu. - Prescriptions for Flagyl 500 mg Oral Tablet - take 1 tablet by ORAL route every 8 hours for 10 days; 30 tablet. Zofran 4 mg Oral Tablet - take 1 tablet by ORAL route every 6 hours As needed; 20 tablet. Cipro 500 mg Oral Tablet - take 1 tablet by ORAL route every 12 hours for 10 days; 20 tablet. - Medication Reconciliation Form, Thank You Letter, Antibiotic Education, Prescription Opioid Use form. - Follow up: Emergency Department; When: As needed; Reason: Worsening of condition. Follow up: Private Physician; When: 2 - 3 days; Reason: Recheck today's complaints, Continuance of care, Re-evaluation by your physician. Signatures: Dispatcher [employer] Gala Wagoner, SIVAN-C SIVAN-Jamil Perez MD MD cha Acob, Cheryl, RN RN ca1 Brown, Zipporah, RN RN zb Corrections: (The following items were deleted from the chart) 10/20 18:58 18:21 10/20/2020 18:21 Discharged to Home. Impression: Diverticulitis of intestine, zb part unspecified, without perforation or abscess without bleeding. Condition is Stable. Forms are Medication Reconciliation Form, Thank You Letter, Antibiotic Education, Prescription Opioid Use. Follow up: Emergency Department; When: As needed; Reason: Worsening of condition. Follow up: Private Physician; When: 2 - 3 days; Reason: Recheck today's complaints, Continuance of care, Re-evaluation by your physician. kb
[2020-10-20] MEDS ORDERED: metroNIDAZOLE 500 MG TABLET ONE (19:00)
[2020-10-20] MEDS ORDERED: CIPROFLOXACIN HCL 500 MG TAB ONE (19:00)
[2020-10-20 19:27] VITALS: TEMP 97.6
[2020-10-20 19:30] VITALS: BP 127/82; O2SAT 99
== END 2020-10-20 18:58 | disposition home or self-care (01) ==
LOC: ER 15:03
DX: K57.32 Diverticulitis of large intestine without perforation or abscess without bleeding (principal); I10 Essential (primary) hypertension
CPT/HCPCS: 96361; 85025; 80048; 36415; 82947; 80076; 83690; 76377; 74176; 96374; 99284; J7030; J2405

== ENCOUNTER 2021-03-11 10:43 | Emergency (ER) | payer OTHER ==
--- OUTSIDE RECORDS SUMMARY | 2021-03-11 10:49 | XMS REPORT | Continuity of Care Document ---
:1965 Author Organization [facility] t Address [address] [place] [address] Care Team Providers Name Role Phone Orlin Juan Attending Clinician Unavailable Rolo BAKER, B Attending Clinician Unavailable Dariel BOYER, Gene Attending Clinician Rosalia BOYER, S Attending Clinician Artemio ALARCON, L Attending Clinician Kathia Attending Clinician Unavailable Nasim Attending Clinician Unavailable Tyler Attending Clinician Unavailable Elisha Attending Clinician Unavailable Orlin Juan Admitting Clinician Unavailable Physician, Primary or Family Admitting Clinician Unavailwoo Dillon MD Admitting Clinician Kathia Admitting Clinician Unavailable Tyler Admitting Clinician Unavailable Elisha Admitting Clinician Unavailable Payers Payer Name Policy Type Policy Number Effective Date Expiration Date S ource Problems This patient has no known problems. Allergies, Adverse Reactions, Alerts Allergy Allergy Status Severity Reaction(s) Onset Inactive Treating Comm ents Source Name Type Date Date Clinician No Known DA Active U [facility] 11-30 Clear s 00:00: Arri[facility] 00 [facility] No Known DA Active U [facility] 11-29 [place] s 00:00: d 00 [facility] No Known DA Active U [facility] Allergie 4 [place] s 00:00: [address] Medications This patient has no known medications. Procedures This patient has no known procedures. Encounters Start End Encounter Admission Attending Care Care Encounter Source Date/Time Date/Time Type Type Clinicians Facility Department ID 2021-02-28 2021-03-01 Inpatient EM Ahmed, HCAPM INTE.02 [id number] [facility] 16:19:00 15:10:00 [facility] [id number] [facility] 2021-02-28 2021-02-28 Outpatient Ahmed, HCACL LABO [id number] [facility] 08:44:00 08:44:00 [facility] [id number] [facility] 2021-02-27 2021-02-27 Inpatient EM Cindymed, HCAPM INTE.02 [id number] [facility] 12:18:00 12:17:00 [facility] [id number] [facility] 2021-02-27 2021-02-27 Transition Sridhar Seth [id number] 00:00:00 00:00:00 of Care Heavenly B Jiang 350.1.13.10 Pisek 4.2.7.2.686 [id number] 2021-02-26 2021-02-26 Transition Sridhar Seth [id number] 00:00:00 00:00:00 of Care Heavenly B Jiang 350.1.13.10 Pisek 4.2.7.2.686 [id number] 2021-02-25 2021-02-25 Refill BERTHA Vieira [id number] 00:00:00 00:00:00 Ayush Grover 350.1.13.10 Leslie 4.2.7.2.686 Professio [id number] [facility] 092 [facility] 2021-02-22 2021-02-24 Emergency Rosalia, [facility] [id number] 20:27:00 15:41:00 Doris Grover [id number] [place] 4.2.7.2.686 [place] [id number] [facility] 2021-02-13 2021-02-13 Patient Artemio, [facility] [id number] 00:00:00 00:00:00 Outreach Nikole Grover 350.1.13.10 [place] 4.2.7.2.686 [id number] 231 [facility] 2021-02-04 2021-02-06 Inpatient EM Akram, HCACL INTE.02 [id number] [facility] 20:15:00 16:26:00 Precious [id number] [facility] 2021-02-04 2021-02-04 Emergency EM Rouse, HCAPM PAOLA [id number]- 20 [facility] 12:54:00 19:20:00 Isac [id number] [facility] 2021-01-03 2021-01-07 Inpatient EM Scott, HCAPM INTE.02 [id number] [facility] 15:04:00 14:00:00 Yared [id number] [facility] 2020-11-30 2020-12-05 Inpatient EM Elisha, HCACR TELE [id number] [facility] 16:20:00 11:58:00 Benoit [id number] [facility] 2020-05-29 2020-05-29 Inpatient E SE MED [id number] 05:06:00 03:46:00 [facility] Results Test Description Test Time Test Comments Results Result Comments Source GLUCOSE BEDSIDE TESTING 2021-03-01 11:27:00 Test Item Value Reference Range Interpretation Comme nts GLUCOSE BEDSIDE TESTING (test code = GLUBED) 109 mg/dL 70-110 N BASIC METABOLIC [id number] 08:09:00 Test Item Value Reference Range Interpretation Comments SODIUM (test code = NA) 138 mmol/L 134-147 N POTASSIUM (test code = 4.2 mmol/L 3.4-5.0 N K) CHLORIDE (test code = 105 mmol/L 100-108 N CL) CARBON DIOXIDE (test 30 mmol/L 21-32 N code = CO2) ANION GAP (test code = 3.0 GAP calc 4.0-15.0 L GAP) GLUCOSE (test code = 99 MG/DL 70-110 N GLU) BLOOD UREA NITROGEN 26 MG/DL 7-18 H (test code = BUN) GLOMERULAR FILTRATION >=60 max estimate >60 RATE (test code = GFR) estGFR CREATININE (test code = 1.3 MG/DL 0.8-1.3 N CREAT) CALCIUM (test code = CA) 9.5 MG/DL 8.5-10.1 N GLUCOSE BEDSIDE [id number] 07:15:00 Test Item Value Reference Range Interpretation Comments GLUCOSE BEDSIDE TESTING (test code 102 mg/dL 70-110 N = GLUBED) GLUCOSE BEDSIDE [id number] 23:04:00 Test Item Value Reference Range Interpretation Comments GLUCOSE BEDSIDE TESTING (test code 127 mg/dL 70-110 H = GLUBED) GLUCOSE BEDSIDE [id number] 20:03:00 Test Item Value Reference Range Interpretation Comments GLUCOSE BEDSIDE TESTING (test code 149 mg/dL 70-110 H = GLUBED) GLUCOSE BEDSIDE [id number] 16:55:00 Test Item Value Reference Range Interpretation Comments GLUCOSE BEDSIDE TESTING (test code 110 mg/dL 70-110 N = GLUBED) GLUCOSE BEDSIDE [id number] 11:23:00 Test Item Value Reference Range Interpretation Comments GLUCOSE BEDSIDE TESTING (test code 173 mg/dL 70-110 H = GLUBED) GLUCOSE BEDSIDE [id number] 08:33:00 Test Item Value Reference Range Interpretation Comments GLUCOSE BEDSIDE TESTING (test code 107 mg/dL 70-110 N = GLUBED) DRUGS OF ABUSE SCREEN [id number] 06:11:00 Test Item Value Reference Range Interpretation Comments URN COCAINE (test NEGATIVE See_Comment UNCONFIRME D code = COCAURN) SCcutoff SCREENING RE SULTS SHOULD NOT BE U SED FORNON-MEDICAL PURPOSES. [Automated message] The system which generated this result transmit breanne reference range : <300 NG/ML. The reference range was not used to interpret this result as normal/abnormal . URN CANNABINOIDS NEGATIVE See_Comment UNCONFIRMED (test code = SCcutoff SCREENING RESUL TS CANNABURN) SHOULD NOT BE U SED FORNON-MEDICAL PURPOSES. [Automated message] The system which generated this result transmit breanne reference range : <50 NG/ML. The reference range was not used to interpret this result as normal/abnormal . URN AMPHETAMINE (test NEGATIVE See_Comment UNCONF IRMED code = AMPHETURN) SCcutoff SCREENING RESULTS SHOULD NOT BE U SED FORNON-MEDICAL PURPOSES. [Automated message] The system which generated this result transmit breanne reference range : <1000 NG/ML. Th e reference range was not used to interpret this result as normal/abnormal . URN BARBITURATE (test NEGATIVE See_Comment UNCONF IRMED code = BARBITURN) SCcutoff SCREENING RESULTS SHOULD NOT BE U SED FORNON-MEDICAL PURPOSES. [Automated message] The system which generated this result transmit breanne reference range : <200 NG/ML. The reference range was not used to interpret this result as normal/abnormal . URN BENZODIAZEPINE NEGATIVE See_Comment UNCONFIRM ED (test code = SCcutoff SCREENING RESUL TS BENZOURN) SHOULD NOT BE U SED FORNON-MEDICAL PURPOSES. [Automated message] The system which generated this result transmit breanne reference range : <200 NG/ML. The reference range was not used to interpret this result as normal/abnormal . URN OPIATES (test NEGATIVE See_Comment UNCONFIRME D code = OPIATURN) SCcutoff SCREENING R ESULTS SHOULD NOT BE U SED FORNON-MEDICAL PURPOSES. [Automated message] The system which generated this result transmit breanne reference range : <2000 NG/ML. Th e reference range was not used to interpret this result as normal/abnormal . URN PHENCYCLIDINE NEGATIVE See_Comment UNCONFIRME D (PCP) (test code = SCcutoff SCREENING RESULTS PHENCURN) SHOULD NOT BE U SED FORNON-MEDICAL PURPOSES. [Automated message] The system which generated this result transmit breanne reference range : <25 NG/ML. The reference range was not used to interpret this result as normal/abnormal . URN METHADONE (test NEGATIVE See_Comment UNCONFIR MED code = METHAURN) SCcutoff SCREENING R ESULTS SHOULD NOT BE U SED FORNON-MEDICAL PURPOSES. [Automated message] The system which generated this result transmit breanne reference range : <300 NG/ML. The reference range was not used to interpret this result as normal/abnormal . [id number] 20:43:00 Test Item Value Reference Range Interpretation Comments TROPONIN-I (test 0.022 NG/ML 0.000-0.045 N Negative: < /= 0.045 code = TROPI) Positive: >/= 0.046 Correlation wit h serial results, other cardiac markers, and cl inical findings is nec essary to determine the c linical significance of this result. Quantit ative results using d ifferent methodologies s hould not be compared to one another as nume rical results may suzy yby method. Completed by Nursing: NO- CTA CHEST FOR [id number] 18:35:00 [facility] 1965 Sex: M Name[facility] : 1965 Age/S: 55 / M [id number] Unit #: [id number] Loc: [place] [address] Phys: NasimIsac DO Acct: [id number] Dis Date: Status: REG ER PHONE #: [phone] Exam Date: 02/27/2021 1800 FAX #: Reason: chest pain, elevated ddimer EXAMS: CPT: [id number] [place] [id number] Location of dictation: B2 CTA of the chest with contrast, PE protocol CLIN ICAL INDICATION: Chest pain and elevated d-dimer. Comments: Volumetric data acquisition through the chest with intravenous contrast reconstructed as contiguous axial volume, and multiplanar coronal and sagittal reconstructions per department protocol. Patient's GFR is greater than 60. Contrast - 100 mL Isovue-370 2.5 mm axial sections. Reconstructions - coronal and sagittal planes with MIP reformations GFR 54 Automated exposure reduction (Auto mA/Smart mA) was utilized in compliance with ACR Image Wisely with DLP of 936.23 mGy-cm. COMPARISON: CT 02/04/2021 and recent chest x-ray FINDINGS: Pulmonary arteries: No evidence for pulmonary embolism or heart strain. Aorta, heart and great vessels: No evidence for aneurysm or dissection. The heart is enlarged with left ventricular configuration. There is no pericardial effusion and no cardiac decompensation. A left- sided pacemaker is in place. Mediastinum and hermelinda: No abnormal massor adenopathy. Lungs and pleura: No consolidation, pneumothorax or effusion Bones and soft tissues: No abnormality noted with degenerative changes in the spine. Upper abdomen: No acute findings. IMPRESSION: 1. No evidence for pulmonary embolism, aneurysm or dissection. 2. Cardiomegaly with left ventricular configuration. Pacemaker in place with no cardiac decompensation. 3. Otherwise no acute findings in the chest. PAGE 1 Signed Report (CONTINUED) Name: [facility] : 1965 Age/S: 55 / M [address] Unit #: [id number] Loc: [place] [address] Phys: Isac Rouse DO Acct: [id number] Dis Date: Status: REG ER PHONE #: [phone] Exam Date: 02/27/2021 1800 FAX #: Reason: chest pain, elevated ddimer EXAMS: CPT: [id number] [id number] <Continued> at 1835 Reported and signed by: April Marsh M.D. CC: Isac Rouse DO Technologist:Caitlin Slaughter RT(R)(CT)(MRI) CTDI: DLP: Trnscb Date/Time: 02/27/2021 (1835) Zena Orig Print D/T: S: 02/27/2021 (1838) PAGE 2 Signed ReportCOVID 19 INHOUSE AG 2021-02-27 14:54:00 Test Item Value Reference Range Interpretation Comments COVID 19 INHOUSE AG NEGATIVE Negative Per manu facturer, (test code = negative result s should [id number]) be treated aspr esumptive and, if inconsi stent with clinical signs andsymptoms or necessary for patient man agement, should betested with an alternative mol ecular assay. Negative resultsdo not preclude SA RS-CoV-2 infection and s hould not be usedas the s ole basis for patient man agement decisions. Neg ative results should be considered in t he context of apatient's r ecent exposures, hist ory, presence of cli nicalsigns and symptoms co nsistent with COVID-19. [id number] 13:38:00 Test Item Value Reference Range Interpretation Comments D-DIMER (test 939 ng/mLFEU 215-500 HH THROMBOSIS AND /OR PULMONARY code = EMBOLISM AND TH E CLINICAL DDIMER) CUT-OFF VALUE F OR EXCLUSION (500 ng/mL FEU) OF THESE CONDITIONSIS VA LIDATED BY THE MANUFACTURE R OF THE METHOD. A NEGAT GAYE D-DIMER RESULT WHEN COM BINED WITH A CLINICALASSESSM ENT OF LOW PRETEST PROBABI LITY HAS BEEN SHOWN TO HAVEA HIGH NEGATIVE PREDICTIVE VALU E OF DVT OR PE. D-DIMER ANTON UES >500 ng/mL FEU ARE N OT DIAGNOSTIC FOR DVT, PEor D IC WITHOUT OTHER CONFIRMAT ORY TESTS AND APPROPRIATECLIN ICAL EUALUATIONS. - XR CHEST 1 [id number] 13:35:00 [facility] 1965 Sex: M Name[facility] : 1965 Age/S: 55 / M [id number] Unit #: [id number] Loc: [place] [address] Phys: Isac Rouse DO Acct: [id number] Dis Date: Status: REG ER PHONE #: [phone] Exam Date: 02/27/2021 1320 FAX #: Reason: chest pain EXAMS: CPT: [id number] XR CHEST 1 V 81245 Fluoro Time: DAP (Gy m2): Air Kerma (mGy): Location of dictation: B2 Portable chest one view. HISTORY: chest pain COMMENT: Compared to 02/04/2021. A left-sided pacemaker is again seen. The heart is slightly smaller, mild interstitialprominence also unchanged with no florid cardiac decompensation and no new consolidation, pneumothorax or effusion. Visualized soft tissues and skeletal structures are unremarkable. IMPRESSION: Less congestive appearance of the chest with no acute findings. at 1330 Reported and signed by: April Marsh M.D. CC: Isac Davis PAGE 1 Signed Report [facility] 1965 Age/S: 55/ M [address] [facility] Unit #: [id number] Loc: [place] [address] Phys: Isac Rouse DO Acct: [id number] Dis Date: Status: REG ER PHONE #: [phone] Exam Date: 02/27/2021 1320 FAX #: Reason: chest pain EXAMS: CPT: [id number] XR CHEST 1 V 06715 Fluoro Time:DAP (Gy m2): Air Kerma (mGy): <Continued> Technologist: Bandar Tirado RT(R)(CT) Trnscb Date/Time: 02/27/2021 (4075) tKEVIN Orig Print D/T: S: 02/27/2021 (1688) PAGE 2 Signed ReportBASIC METABOLIC [id number] 13:29:00 Test Item Value Reference Range Interpretation Comments SODIUM (test code = NA) 140 mmol/L 134-147 N POTASSIUM (test code = K) 4.2 mmol/L 3.4-5.0 N CHLORIDE (test code = CL) 108 mmol/L 100-108 N CARBON DIOXIDE (test code = CO2) 26 mmol/L 21-32 N ANION GAP (test code = GAP) 6.0 GAP calc 4.0-15.0 N GLUCOSE (test code = GLU) 107 MG/DL 70-110 N BLOOD UREA NITROGEN (test code = 27 MG/DL 7-18 H BUN) GLOMERULAR FILTRATION RATE (test 54 estGFR >60 L code = GFR) CREATININE (test code = CREAT) 1.7 MG/DL 0.8-1.3 H CALCIUM (test code = CA) 8.9 MG/DL 8.5-10.1 N Completed by Nursing: NOCREATINE KINASE (CK)2021-02-27 13:29:00 Test Item Value Reference Range Interpretation Comments CREATINE KINASE (CK) (test code = 318 Unit/L 26-192 H CK) Completed by Nursing: NONT PRO-BRAIN NATRIURETIC [id number] 13:29:00 Test Item Value Reference Range Interpretation Comments NT PRO-BRAIN NATRIURETIC PEPTI 1727 PG/ML 0-100 H (test code = PROBNP) Completed by Nursing: [id number] 13:29:00 Test Item Value Reference Range Interpretation Comments TROPONIN-I (test < 0.015 NG/ML 0.000-0.045 N Negative: </= 0.045 code = TROPI) Positive: >/= 0.046 Correlation wit h serial results, other cardiac markers, and cl inical findings is nec essary to determine the c linical significance of this result. Quantit ative results using d ifferent methodologies s hould not be compared to one another as nume rical results may suzy yby method. Completed by Nursing: NOCBC W/O [id number] 13:18:00 Test Item Value Reference Range Interpretation Comments WHITE BLOOD CELL (test code = WBC) 4.9 K/mm3 3.5-11.0 N RED BLOOD CELL (test code = RBC) 6.09 M/mm3 4.70-6.10 N HEMOGLOBIN (test code = HGB) 15.4 G/DL 12.3-15.9 N HEMATOCRIT (test code = HCT) 48.9 % 35.8-46.7 H MEAN CELL VOLUME (test code = MCV) 80.3 Fl 86.3-98.9 L MEAN CELL HGB (test code = MCH) 25.3 pg 28.9-34.4 L MEAN CELL HGB CONCETRATION (test 31.5 G/DL 32.1-34.5 L code = MCHC) RED CELL DISTRIBUTION WIDTH (test 15.9 SD 11.5-14.5 H code = RDW) PLATELET COUNT (test code = PLT) 226 K/mm3 150-450 N MEAN PLATELET VOLUME (test code = 11.20 fL 7.0-9.6 H MPV) [id number] 16:47:00 Test Item Value Reference Range Interpretation Comments GLUBED (test code = 116 MG/DL 70-110 H Performe d by certified GLUBED) 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 [facility] [id number] 11:32:00 Test Item Value Reference Range Interpretation Comments GLUBED (test code = 110 MG/DL 70-110 N Performe d by certified GLUBED) 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 [facility] [id number] 08:13:00 Test Item Value Reference Range Interpretation Comments GLUBED (test code = 101 MG/DL 70-110 N Performe d by certified GLUBED) 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 [facility] [id number] 07:50:00 Test Item Value Reference Range Interpretation Comments HGBA1C% (test code = HGBA1C%) 5.9 %A1C 4.8-6.0 N BASIC METABOLIC [id number] 07:33:00 Test Item Value Reference Range Interpretation Comments SODIUM (test code = NA) 142 mEq/L 134-147 N POTASSIUM (test code = 4.4 mEq/L 3.4-5.0 N K) CHLORIDE (test code = 107 mEq/L 100-108 N CL) CARBON DIOXIDE (test 30 mEq/l 21-33 N code = CO2) ANION GAP (test code = 9 0-20 N GAP) GLUCOSE (test code = 92 mg/dL 70-110 N GLU) BLOOD UREA NITROGEN 21 mg/dL 7-18 H (test code = BUN) GLOMERULAR FILTRATION 63.9 90-95 L Units of measure = RATE (test code = GFR) ml/mi n/1.73 m2 CREATININE (test code = 1.4 mg/dL 0.6-1.3 H CREAT) CALCIUM (test code = 9.0 mg/dL 8.0-10.5 N CA) TSH REFLEX TO [id number] 07:33:00 Test Item Value Reference Range Interpretation Comments TSH REFLEX TO FT4 (test code = 0.50 IU/mL 0.42-5.47 N TSHREFLEX) BASIC METABOLIC [id number] 07:28:00 Test Item Value Reference Range Interpretation Comments SODIUM (test code = NA) 142 mEq/L 134-147 N POTASSIUM (test code = 4.4 mEq/L 3.4-5.0 N K) CHLORIDE (test code = 107 mEq/L 100-108 N CL) CARBON DIOXIDE (test 30 mEq/l 21-33 N code = CO2) ANION GAP (test code = 9 0-20 N GAP) GLUCOSE (test code = 92 mg/dL 70-110 N GLU) BLOOD UREA NITROGEN 21 mg/dL 7-18 H (test code = BUN) GLOMERULAR FILTRATION 63.9 90-95 L Units of measure = RATE (test code = GFR) ml/mi n/1.73 m2 CREATININE (test code = 1.4 mg/dL 0.6-1.3 H CREAT) CALCIUM (test code = 9.0 mg/dL 8.0-10.5 N CA) TSH REFLEX TO [id number] 07:28:00 Test Item Value Reference Range Interpretation Comments TSH REFLEX TO FT4 (test code = IU/mL 0.42-5.47 TSHREFLEX) CBC W/AUTO [id number] 07:23:00 Test Item Value Reference Range Interpretation Comments WHITE BLOOD CELL (test code = 5.2 x10 3/uL 4.5-11.0 N WBC) RED BLOOD CELL (test code = 5.51 x10 6/uL 4.00-5.60 N RBC) HEMOGLOBIN (test code = HGB) 14.2 g/dL 12.5-16.9 N HEMATOCRIT (test code = HCT) 46.1 % 37.5-50.7 N MEAN CELL VOLUME (test code = 83.7 fL 81.0-99.0 MCV) MEAN CELL HGB (test code = MCH) 25.8 pg 27.0-33.0 L MEAN CELL HGB CONCETRATION 30.8 g/dL 33.0-37.0 L (test code = MCHC) RED CELL DISTRIBUTION WIDTH CV 16.4 % 11.5-14.5 H (test code = RDW) RED CELL DISTRIBUTION WIDTH SD 50.1 fL 37.0-54.0 N (test code = RDW-SD) PLATELET COUNT (test code = 219 x10 3/uL 150-400 N PLT) MEAN PLATELET VOLUME (test code 11.5 fL 7.0-9.0 H = MPV) NEUTROPHIL % (test code = NT%) 44.2 % 56.0-77.0 L IMMATURE GRANULOCYTE % (test 0.2 % 0.0-2.0 N code = IG%) LYMPHOCYTE % (test code = LY%) 42.8 % 14.0-32.0 H MONOCYTE % (test code = MO%) 10.5 % 4.8-9.0 H EOSINOPHIL % (test code = EO%) 1.9 % 0.3-3.7 N BASOPHIL % (test code = BA%) 0.4 % 0.0-2.0 N NUCLEATED RBC % (test code = 0.0 % 0-0 N NRBC%) NEUTROPHIL # (test code = NT#) 2.28 x10 3/uL 2.0-7.6 N IMMATURE GRANULOCYTE # (test 0.01 x10 3/uL 0.00-0.03 N code = IG#) LYMPHOCYTE # (test code = LY#) 2.21 x10 3/uL 1.0-3.8 N MONOCYTE # (test code = MO#) 0.54 x10 3/uL 0.1-0.8 N EOSINOPHIL # (test code = EO#) 0.10 x10 3/uL 0.0-0.2 N BASOPHIL # (test code = BA#) 0.02 x10 3/uL 0.0-0.2 N NUCLEATED RBC # (test code = 0.00 x10 3/uL 0.0-0.1 N NRBC#) MANUAL DIFF REQUIRED (test code NO = MDIFF) [id number] 20:49:00 Test Item Value Reference Range Interpretation Comments GLUBED (test code = 129 MG/DL 70-110 H Performe d by certified GLUBED) 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 [facility] COMPREHENSIVE METABOLIC [id number] 04:33:00 Test Item Value Reference Range Interpretation Comments SODIUM (test code = NA) 141 mEq/L 134-147 N POTASSIUM (test code = 4.2 mEq/L 3.4-5.0 N K) CHLORIDE (test code = 109 mEq/L 100-108 H CL) CARBON DIOXIDE (test 28 mEq/l 21-33 N code = CO2) ANION GAP (test code = 8 0-20 N GAP) GLUCOSE (test code = 98 mg/dL 70-110 N GLU) BLOOD UREA NITROGEN 21 mg/dL 7-18 H (test code = BUN) GLOMERULAR FILTRATION 63.9 90-95 L Units of measure = RATE (test code = GFR) ml/mi n/1.73 m2 CREATININE (test code = 1.4 mg/dL 0.6-1.3 H CREAT) TOTAL PROTEIN (test 7.0 g/dL 6.4-8.2 N code = PROT) ALBUMIN (test code = 3.50 g/dL 3.4-5.0 N ALB) CALCIUM (test code = 8.9 mg/dL 8.0-10.5 N CA) BILIRUBIN TOTAL (test 0.60 mg/dL 0.0-1.0 N code = BILT) SGOT/AST (test code = 22 IUnit/L 15-37 N AST) SGPT/ALT (test code = 23 IUnit/L 30-65 L ALT) ALKALINE PHOSPHATASE 55 IUnit/L 20-125 N TOTAL (test code = ALKP) LIPID PROFILE (CORONARY RISK)2021-02-05 04:33:00 Test Item Value Reference Range Interpretation Comments TRIGLYCERIDES (test 141 mg/dL 40-150 N code = TRIG) CHOLESTEROL (test 188 mg/dL <200 code = CHOL) CHOLESTEROL/HDL 6.16 RATIO 3.43-4.97 H RISK ASSOCIA BREANNE WITH RATIO (test code = CHOL/HDL RATIOS: CHOLHDL) RISK MALE FEMALE1/2 A VERAGE 3.43 3.27AVERAGE 4.97 4.[address] RAGE 23.39 11.04 NOTE THAT THE REFERENCE VALUE IS RELATEDTO RISK LEVELS RECOMMENDED BY THE NATL.HEART, GELACIO G, AND BLOOD INST. HDL CHOLESTEROL 30.5 mg/dL 32-72 L (test code = HDL) LIPOPROTEIN LDL 160.1 mg/dL 0-100 H <100 (test code = LDL) [id number] -129 NEAR OPTIMAL/ABOVE [id number] 89 HIGH>UF=235 VE RY HIGH*Guidelines provided by the [facility] Adult Treatment Panel III CBC W/AUTO [id number] 04:22:00 Test Item Value Reference Range Interpretation Comments WHITE BLOOD CELL (test code = 5.2 x10 3/uL 4.5-11.0 N WBC) RED BLOOD CELL (test code = 5.66 x10 6/uL 4.00-5.60 H RBC) HEMOGLOBIN (test code = HGB) 14.3 g/dL 12.5-16.9 N HEMATOCRIT (test code = HCT) 45.3 % 37.5-50.7 N MEAN CELL VOLUME (test code = 80.0 fL 81.0-99.0 L MCV) MEAN CELL HGB (test code = MCH) 25.3 pg 27.0-33.0 L MEAN CELL HGB CONCETRATION 31.6 g/dL 33.0-37.0 L (test code = MCHC) RED CELL DISTRIBUTION WIDTH CV 17.2 % 11.5-14.5 H (test code = RDW) RED CELL DISTRIBUTION WIDTH SD 47.8 fL 37.0-54.0 N (test code = RDW-SD) PLATELET COUNT (test code = 208 x10 3/uL 150-400 N PLT) MEAN PLATELET VOLUME (test code 10.5 fL 7.0-9.0 H = MPV) NEUTROPHIL % (test code = NT%) 41.9 % 56.0-77.0 L IMMATURE GRANULOCYTE % (test 0.2 % 0.0-2.0 N code = IG%) LYMPHOCYTE % (test code = LY%) 43.2 % 14.0-32.0 H MONOCYTE % (test code = MO%) 12.0 % 4.8-9.0 H EOSINOPHIL % (test code = EO%) 2.3 % 0.3-3.7 N BASOPHIL % (test code = BA%) 0.4 % 0.0-2.0 N NUCLEATED RBC % (test code = 0.0 % 0-0 N NRBC%) NEUTROPHIL # (test code = NT#) 2.19 x10 3/uL 2.0-7.6 N IMMATURE GRANULOCYTE # (test 0.01 x10 3/uL 0.00-0.03 N code = IG#) LYMPHOCYTE # (test code = LY#) 2.26 x10 3/uL 1.0-3.8 N MONOCYTE # (test code = MO#) 0.63 x10 3/uL 0.1-0.8 N EOSINOPHIL # (test code = EO#) 0.12 x10 3/uL 0.0-0.2 N BASOPHIL # (test code = BA#) 0.02 x10 3/uL 0.0-0.2 N NUCLEATED RBC # (test code = 0.00 x10 3/uL 0.0-0.1 N NRBC#) MANUAL DIFF REQUIRED (test code NO = MDIFF) CBC W/AUTO [id number] 04:21:00 Test Item Value Reference Range Interpretation Comments WHITE BLOOD CELL (test code = x10 3/uL 4.5-11.0 WBC) RED BLOOD CELL (test code = RBC) x10 6/uL 4.00-5.60 HEMOGLOBIN (test code = HGB) 14.3 g/dL 12.5-16.9 N HEMATOCRIT (test code = HCT) 45.3 % 37.5-50.7 N MEAN CELL VOLUME (test code = fL 81.0-99.0 MCV) MEAN CELL HGB (test code = MCH) pg 27.0-33.0 MEAN CELL HGB CONCETRATION (test g/dL 33.0-37.0 code = MCHC) RED CELL DISTRIBUTION WIDTH CV % 11.5-14.5 (test code = RDW) PLATELET COUNT (test code = PLT) 208 x10 3/uL 150-400 N NEUTROPHIL % (test code = NT%) % 56.0-77.0 LYMPHOCYTE % (test code = LY%) % 14.0-32.0 NEUTROPHIL # (test code = NT#) x10 3/uL 2.0-7.6 LYMPHOCYTE # (test code = LY#) x10 3/uL 1.0-3.8 MANUAL DIFF REQUIRED (test code = MDIFF) [id number] 00:46:00 Test Item Value Reference Range Interpretation Comments TROPONIN-I 0.090 ng/mL 0.000-0.045 H Negative: <= (test code = 0.045 Positive: TROPI) >= 0.046 Correl ation with serial results, other cardiac markers andclin ical findings is necessary to determine the clinicalsignifi cance of this result. Results using different metho dologies should not be c omparedto one another as kyle titative results may suzy y by method. LIPOPROTEIN [id number] 22:00:00 Test Item Value Reference Range Interpretation Comments LIPOPROTEIN LDL 166.8 mg/dL 0-100 H <100 OPT [id number] (test code = LDL) NEAR OPTI MAL/ABOVE [id number] 89 HIGH>JM=210 VE RY HIGH*Guidelines [facility] [id number] 21:44:00 Test Item Value Reference Range Interpretation Comments TROPONIN-I 0.098 ng/mL 0.000-0.045 H Negative: <= (test code = 0.045 Positive: TROPI) >= 0.046 Correl ation with serial results, other cardiac markers andclin ical findings is necessary to determine the clinicalsignifi cance of this result. Results using different metho dologies should not be c omparedto one another as kyle titative results may suzy y by method. 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 [facility] UA RFLX MICR CULT IF [id number] 18:05:00 Test Item Value Reference Range Interpretation Comments UA COLOR (test code = YELLOW discript YEL/STRAW COLU) UA APPEARANCE (test code CLEAR discript CLEAR = APPU) UA GLUCOSE DIPSTICK (test NEGATIVE mg/dL NEG code = DGLUU) UA BILIRUBIN DIPSTICK NEGATIVE mg/dL NEG (test code = BILU) UA KETONE DIPSTICK (test NEGATIVE mg/dL NEG code = KETU) UA SPECIFIC GRAVITY (test 1.015 SG 1.005-1.030 code = SGU) UA BLOOD DIPSTICK (test NEGATIVE mg/DL NEG code = SRAVAN) UA PH DIPSTICK (test code 5.5 pH UNITS 5.0-7.0 = WILLIE) UA PROTEIN DIPSTICK (test 1+ mg/dL NEG A code = PROU) UA UROBILINIOGEN DIPSTICK 0.2 mg/dL <2.0 (test code = URO) UA NITRITE DIPSTICK (test NEGATIVE SCREEN NEG code = CARLOS) UA LEUKOCYTE ESTERASE NEGATIVE Leuk/mcL NEGATIVE DIPSTICK (test code = LEUU) UA WBC (test code = WBCU) 1-3 #WBC/HPF 0-3 UA RBC (test code = RBCU) NONE SEEN #RBC/HPF 0-3 UA BACTERIA (test code = TRACE /HPF NONE-TRACE BACU) UA SQUAMOUS CELLS (test TRACE /HPF NONE code = SQU) UA CULTURE NEEDED? (test NO, WBC<10 Criteria Culture CHK code = UACULT) Indication for culture: Dysuria/FrequencyDRUGS OF ABUSE SCREEN [id number] 18:05:00 Test Item Value Reference Range Interpretation Comments URN COCAINE (test POSITIVE See_Comment A [Automate d code = COCAURN) SCcutoff message] The system which generated this result transmit breanne reference range : <300 NG/ML. The reference range was not used to interpret this result as normal/abnormal . URN CANNABINOIDS NEGATIVE See_Comment [Automated (test code = SCcutoff message] The CANNABURN) system which generated this result transmit breanne reference range : <50 NG/ML. The reference range was not used to interpret this result as normal/abnormal . URN AMPHETAMINE (test NEGATIVE See_Comment [Auto mated code = AMPHETURN) SCcutoff message] T he system which generated this result transmit breanne reference range : <1000 NG/ML. Th e reference range was not used to interpret this result as normal/abnormal . URN BARBITURATE (test NEGATIVE See_Comment [Auto mated code = BARBITURN) SCcutoff message] T he system which generated this result transmit breanne reference range : <200 NG/ML. The reference range was not used to interpret this result as normal/abnormal . URN BENZODIAZEPINE NEGATIVE See_Comment [Automat ed (test code = SCcutoff message] The BENZOURN) system which generated this result transmit breanne reference range : <200 NG/ML. The reference range was not used to interpret this result as normal/abnormal . URN OPIATES (test NEGATIVE See_Comment [Automate d code = OPIATURN) SCcutoff message] e system which generated this result transmit breanne reference range : <2000 NG/ML. Th e reference range was not used to interpret this result as normal/abnormal . URN PHENCYCLIDINE NEGATIVE See_Comment [Automate d (PCP) (test code = SCcutoff message] The PHENCURN) system which generated this result transmit breanne reference range : <25 NG/ML. The reference range was not used to interpret this result as normal/abnormal . URN METHADONE (test NEGATIVE See_Comment [Automa breanne code = METHAURN) SCcutoff message] Th e system which generated this result transmit breanne reference range : <300 NG/ML. The reference range was not used to interpret this result as normal/abnormal . Indication for culture: Dysuria/FrequencyUA RFLX MICR CULT IF INDICATED 2021-02-04 17:28:00 Test Item Value Reference Range Interpretation Comments UA COLOR (test code = YELLOW discript YEL/STRAW COLU) UA APPEARANCE (test code CLEAR discript CLEAR = APPU) UA GLUCOSE DIPSTICK (test NEGATIVE mg/dL NEG code = DGLUU) UA BILIRUBIN DIPSTICK NEGATIVE mg/dL NEG (test code = BILU) UA KETONE DIPSTICK (test NEGATIVE mg/dL NEG code = KETU) UA SPECIFIC GRAVITY (test 1.015 SG 1.005-1.030 code = SGU) UA BLOOD DIPSTICK (test NEGATIVE mg/DL NEG code = SRAVAN) UA PH DIPSTICK (test code 5.5 pH UNITS 5.0-7.0 = WILLIE) UA PROTEIN DIPSTICK (test 1+ mg/dL NEG A code = PROU) UA UROBILINIOGEN DIPSTICK 0.2 mg/dL <2.0 (test code = URO) UA NITRITE DIPSTICK (test NEGATIVE SCREEN NEG code = CARLOS) UA LEUKOCYTE ESTERASE NEGATIVE Leuk/mcL NEGATIVE DIPSTICK (test code = LEUU) UA WBC (test code = WBCU) 1-3 #WBC/HPF 0-3 UA RBC (test code = RBCU) NONE SEEN #RBC/HPF 0-3 UA BACTERIA (test code = TRACE /HPF NONE-TRACE BACU) UA SQUAMOUS CELLS (test TRACE /HPF NONE code = SQU) UA CULTURE NEEDED? (test NO, WBC<10 Criteria Culture CHK code = UACULT) Indication for culture: Dysuria/FrequencyDRUGS OF ABUSE SCREEN [id number] 17:28:00 Test Item Value Reference Range Interpretation Comments URN COCAINE (test code = SCcutoff See_Comment [A utomated message] COCAURN) The system [employer] generated this result transmit breanne reference range : <300 NG/ML. The reference range was not used to interpret this result as normal/abnormal . URN CANNABINOIDS (test SCcutoff See_Comment [Aut omated message] code = CANNABURN) The system which generated this result transmit breanne reference range : <50 NG/ML. The refe rence range was not u sed to interpret th is result as normal/abnormal . URN AMPHETAMINE (test SCcutoff See_Comment [Auto mated message] code = AMPHETURN) The system which generated this result transmit breanne reference range : <1000 NG/ML. Th e reference range was not used to interpret this result as normal/abnormal . URN BARBITURATE (test SCcutoff See_Comment [Auto mated message] code = BARBITURN) The system which generated this result transmit breanne reference range : <200 NG/ML. The reference range was not used to interpret this result as normal/abnormal . URN BENZODIAZEPINE (test SCcutoff See_Comment [A utomated message] code = BENZOURN) The system which generated this result transmit breanne reference range : <200 NG/ML. The reference range was not used to interpret this result as normal/abnormal . URN OPIATES (test code = SCcutoff See_Comment [A utomated message] OPIATURN) The system [employer] generated this result transmit breanne reference range : <2000 NG/ML. Th e reference range was not used to interpret this result as normal/abnormal . URN PHENCYCLIDINE (PCP) SCcutoff See_Comment [Au tomated message] (test code = PHENCURN) The s ystem which generated this result transmit breanne reference range : <25 NG/ML. The refe rence range was not u sed to interpret th is result as normal/abnormal . URN METHADONE (test code SCcutoff See_Comment [A utomated message] = METHAURN) The system [employer] generated this result transmit breanne reference range : <300 NG/ML. The reference range was not used to interpret this result as normal/abnormal . Indication for culture: Dysuria/FrequencyUA RFLX MICR CULT IF INDICATED 2021-02-04 17:23:00 Test Item Value Reference Range Interpretation Comments UA COLOR (test code = COLU) YELLOW discript YEL/STRAW UA APPEARANCE (test code = CLEAR discript CLEAR APPU) UA GLUCOSE DIPSTICK (test NEGATIVE mg/dL NEG code = DGLUU) UA BILIRUBIN DIPSTICK (test NEGATIVE mg/dL NEG code = BILU) UA KETONE DIPSTICK (test NEGATIVE mg/dL NEG code = KETU) UA SPECIFIC GRAVITY (test 1.015 SG 1.005-1.030 code = SGU) UA BLOOD DIPSTICK (test NEGATIVE mg/DL NEG code = SRAVAN) UA PH DIPSTICK (test code = 5.5 pH UNITS 5.0-7.0 WILLIE) UA PROTEIN DIPSTICK (test 1+ mg/dL NEG A code = PROU) UA UROBILINIOGEN DIPSTICK 0.2 mg/dL <2.0 (test code = URO) UA NITRITE DIPSTICK (test NEGATIVE SCREEN NEG code = CARLOS) UA LEUKOCYTE ESTERASE NEGATIVE Leuk/mcL NEGATIVE DIPSTICK (test code = LEUU) UA CULTURE NEEDED? (test Criteria Culture CHK code = UACULT) Indication for culture: Dysuria/FrequencyDRUGS OF ABUSE SCREEN [id number] 17:23:00 Test Item Value Reference Range Interpretation Comments URN COCAINE (test code = SCcutoff See_Comment [A utomated message] COCAURN) The system [facility] h generated this result transmit breanne reference range : <300 NG/ML. The reference range was not used to interpret this result as normal/abnormal . URN CANNABINOIDS (test SCcutoff See_Comment [Aut omated message] code = CANNABURN) The system which generated this result transmit breanne reference range : <50 NG/ML. The refe rence range was not u sed to interpret th is result as normal/abnormal . URN AMPHETAMINE (test SCcutoff See_Comment [Auto mated message] code = AMPHETURN) The system which generated this result transmit breanne reference range : <1000 NG/ML. Th e reference range was not used to interpret this result as normal/abnormal . URN BARBITURATE (test SCcutoff See_Comment [Auto mated message] code = BARBITURN) The system which generated this result transmit breanne reference range : <200 NG/ML. The reference range was not used to interpret this result as normal/abnormal . URN BENZODIAZEPINE (test SCcutoff See_Comment [A utomated message] code = BENZOURN) The system which generated this result transmit breanne reference range : <200 NG/ML. The reference range was not used to interpret this result as normal/abnormal . URN OPIATES (test code = SCcutoff See_Comment [A utomated message] OPIATURN) The system [employer] generated this result transmit breanne reference range : <2000 NG/ML. Th e reference range was not used to interpret this result as normal/abnormal . URN PHENCYCLIDINE (PCP) SCcutoff See_Comment [Au tomated message] (test code = PHENCURN) The s ystem which generated this result transmit breanne reference range : <25 NG/ML. The refe rence range was not u sed to interpret th is result as normal/abnormal . URN METHADONE (test code SCcutoff See_Comment [A utomated message] = METHAURN) The system [employer] generated this result transmit breanne reference range : <300 NG/ML. The reference range was not used to interpret this result as normal/abnormal . Indication for culture: Dysuria/Frequency- CTA CHEST FOR [id number] 16:11[facility]00[facility] 1965 Sex: M Name[facility] : 1965 Age/S: 55 / M [id number] Unit #: [id number] Loc: [place] [address] Phys: Isac Rouse DO Acct: [id number] Dis Date: Status: REG ER PHONE #: [phone] Exam Date: 02/04/2021 1540 FAX #: Reason: chest pain EXAMS: CPT: [id number] CTA CHEST FOR PE EXAM: - CTA CHEST FOR PE LOCATION: B2 TECHNIQUE: Serial axial CT images were obtained from the supraclavicular region to the adrenal glands with the administration of intravenous contrast. Phase(s): PE Protocol Reformats: Standard coronal and sagittal reformats. Bilateral oblique MIPS This exam was performed according to our departmental dose-optimization program, which includes automated exposure control, adjustment of the mA and/or kV according to patient size and/or use of iterative reconstruction technique. COMPARISON: CT chest 11/29/2020 HISTORY: chest pain FINDINGS: PULMONARY ARTERIES: No pulmonary embolism identified to the segmental level. No signs of pulmonary hypertension or right heart strain. THYROID: Normal. LYMPHADENOPATHY: There is no supraclavicular or axillary lymphadenopathy. No enlarged mediastinal or hilar lymph nodes. AIRWAYS: Unremarkable. LUNGS/PLEURA: No ground glass opacities or consolidations. No suspicious pulmonary nodules. No pleural effusion, pleural based masses, or calcifications. MEDIASTINUM: There is borderline four-chamber dilation of the heart. The pericardium is unremarkable. Left chest wall 3-lead defibrillator is noted with leads in appropriate position. The thoracic aorta is nonaneurysmal. No significant aortic atherosclerosis. Minimal coronary artery calcifications. The esophagus is grosslyunremarkable. VISUALIZED ABDOMEN: There is reflux of contrast into the hepatic veins. The visualized upper abdomen is unremarkable. SOFT TISSUES: Left chest wall defibrillator noted. PAGE 1 Signed Report (CONTINUED) [facility] 1965 Age/S: 55 / M [id number] Unit #: [id number] Loc: [place] [address] Phys: Isac Rouse DO Acct: [id number] Dis Date: Status: REG ER PHONE #: [phone] Exam Date: 02/04/2021 1540 FAX #: Reason: chest pain EXAMS: CPT: [id number] CTA CHEST FOR PE <Continued> BONES: No acute osseous findings. Mild thoracic texture scoliosis. IMPRESSION: 1. No pulmonary embolism. No acute findings throughout the lungs. 2. Borderline dilated heart chambers. at 1611 Reported and signed by:Luis Rogers D.O. CC: Isac DARNELL Technologist:Carmen Ruggiero, RT(R) CTDI: DLP: Trnscb Date/Time: 02/04/2021 (1611) [id number] Orig Print D/T: S: 02/04/2021 (8009) PAGE 2 Signed ReportD-DIMER 2021-02-04 14:30:00 Test Item Value Reference Range Interpretation Comments D-DIMER (test code = DDIMER) 979 ng/mLFEU 215-500 HH BASIC METABOLIC [id number] 14:03:00 Test Item Value Reference Range Interpretation Comments SODIUM (test code = NA) 139 mmol/L 134-147 N POTASSIUM (test code = 4.5 mmol/L 3.4-5.0 N K) CHLORIDE (test code = 109 mmol/L 100-108 H CL) CARBON DIOXIDE (test 26 mmol/L 21-32 N code = CO2) ANION GAP (test code = 4.0 GAP calc 4.0-15.0 N GAP) GLUCOSE (test code = 102 MG/DL 70-110 N GLU) BLOOD UREA NITROGEN 25 MG/DL 7-18 H (test code = BUN) GLOMERULAR FILTRATION >=60 max estimate >60 RATE (test code = GFR) estGFR CREATININE (test code = 1.3 MG/DL 0.8-1.3 N CREAT) CALCIUM (test code = CA) 8.9 MG/DL 8.5-10.1 N Completed by Nursing: NOCREATINE KINASE (CK)2021-02-04 14:03:00 Test Item Value Reference Range Interpretation Comments CREATINE KINASE (CK) (test code = 776 Unit/L 26-192 H CK) Completed by Nursing: [id number] 14:03:00 Test Item Value Reference Range Interpretation Comments TROPONIN-I (test 0.089 NG/ML 0.000-0.045 HH Negative: < /= 0.045 code = TROPI) Positive: >/= 0.046 Correlation wit h serial results, other cardiac markers, and cl inical findings is nec essary to determine the c linical significance of this result. Quantit ative results using d ifferent methodologies s hould not be compared to one another as nume rical results may suzy yby method. Completed by Nursing: ALVAREZ 19 INHOUSE [id number] 13:50:00 Test Item Value Reference Range Interpretation Comments COVID 19 INHOUSE AG NEGATIVE Negative Per manu facturer, (test code = negative result s should [id number]) be treated aspr esumptive and, if inconsi stent with clinical signs andsymptoms or necessary for patient man agement, should betested with an alternative mol ecular assay. Negative resultsdo not preclude SA RS-CoV-2 infection and s hould not be usedas the s ole basis for patient man agement decisions. Neg ative results should be considered in t he context of apatient's r ecent exposures, hist ory, presence of cli nicalsigns and symptoms co nsistent with COVID-19. - XR CHEST 1 [id number] 13:44:00 [facility] : 1965 Sex: M Name[facility] : 1965 Age/S: 55 / M [address] Unit #: [id number] Loc: [place] [address] Phys: Isac Rouse DO Acct: [id number] Dis Date: Status: PRE ER PHONE #: [phone] Exam Date: 02/04/2021 1326 FAX #: Reason: chest pain EXAMS: CPT: [id number] XR CHEST 1 V 15429 Fluoro Time: DAP (Gy m2): Air Kerma (mGy): HISTORY: Chest pain Location code: B2 FINDINGS: Frontal view of the chest demonstrates a mildly enlarged cardiomediastinal silhouette, with central venous congestion. The trachea is midline. The lungs are clear. There is no effusion or pneumothorax. The bones are intact. Left pacer device is intact. IMPRESSION: 1. Mild cardiomegaly and central venous conge stion, without acute decompensation. at 1344 Reported and signed by: Geoff Scott M.D. CC: Isac Rouse DO; Afua DARNELL PAGE 1 Signed Report Name: WILMER [facility]ADA : 1965 Age/S: 55 / M [address] Unit #: [id number] Loc: [place] [address] Phys: Isac Rouse DO Acct: [id number] Dis Date: Status: PRE ER PHONE #: [phone] Exam Date: 02/04/2021 1326 FAX #: Reason: chest pain EXAMS: CPT: [id number] XR CHEST 1 V [id number] Fluoro Time: DAP (Gy m2): Air Kerma (mGy): <Continued> Technologist: RT Stephanie(R) Trnnvb Date/Time: 02/04/2021 (4744) [id number] Orig Print D/T: S: 02/04/2021 (4165) PAGE 2 Signed ReportCBC W/O [id number] 13:36:00 Test Item Value Reference Range Interpretation Comments WHITE BLOOD CELL (test code = WBC) 6.0 K/mm3 3.5-11.0 N RED BLOOD CELL (test code = RBC) 5.80 M/mm3 4.70-6.10 N HEMOGLOBIN (test code = HGB) 14.5 G/DL 12.3-15.9 N HEMATOCRIT (test code = HCT) 47.2 % 35.8-46.7 H MEAN CELL VOLUME (test code = MCV) 81.4 Fl 86.3-98.9 L MEAN CELL HGB (test code = MCH) 25.0 pg 28.9-34.4 L MEAN CELL HGB CONCETRATION (test 30.7 G/DL 32.1-34.5 L code = MCHC) RED CELL DISTRIBUTION WIDTH (test 17.5 SD 11.5-14.5 H code = RDW) PLATELET COUNT (test code = PLT) 230 K/mm3 150-450 N MEAN PLATELET VOLUME (test code = 10.90 fL 7.0-9.6 H MPV) BASIC METABOLIC [id number] 12:58:00 Test Item Value Reference Range Interpretation Comments SODIUM (test code = NA) 138 mmol/L 134-147 N POTASSIUM (test code = K) 3.8 mmol/L 3.4-5.0 N CHLORIDE (test code = CL) 104 mmol/L 100-108 N CARBON DIOXIDE (test code = CO2) 26 mmol/L 21-32 N ANION GAP (test code = GAP) 8.0 GAP calc 4.0-15.0 N GLUCOSE (test code = GLU) 137 MG/DL 70-110 H BLOOD UREA NITROGEN (test code = 27 MG/DL 7-18 H BUN) GLOMERULAR FILTRATION RATE (test 54 estGFR >60 L code = GFR) CREATININE (test code = CREAT) 1.7 MG/DL 0.8-1.3 H CALCIUM (test code = CA) 9.0 MG/DL 8.5-10.1 N CBC W/AUTO [id number] 12:51:00 Test Item Value Reference Range Interpretation Comments WHITE BLOOD CELL (test code = 5.5 K/mm3 3.5-11.0 N WBC) RED BLOOD CELL (test code = 6.46 M/mm3 4.70-6.10 H RBC) HEMOGLOBIN (test code = HGB) 16.2 G/DL 12.3-15.9 H HEMATOCRIT (test code = HCT) 51.8 % 35.8-46.7 H MEAN CELL VOLUME (test code = 80.2 Fl 86.3-98.9 L MCV) MEAN CELL HGB (test code = MCH) 25.1 pg 28.9-34.4 L MEAN CELL HGB CONCETRATION 31.3 G/DL 32.1-34.5 L (test code = MCHC) RED CELL DISTRIBUTION WIDTH 17.7 SD 11.5-14.5 H (test code = RDW) PLATELET COUNT (test code = 252 K/mm3 150-450 N PLT) MEAN PLATELET VOLUME (test code 10.90 fL 7.0-9.6 H = MPV) NEUTROPHIL % (test code = NT%) 52.5 % 40-76 N IMMATURE GRANULOCYTE % (test 0.2 % 0.0-5.0 N code = IG%) LYMPHOCYTE % (test code = LY%) 33.8 % 20.5-51.1 N MONOCYTE % (test code = MO%) 10.4 % 1.7-9.3 H EOSINOPHIL % (test code = EO%) 2.7 % 0.0-6.0 N BASOPHIL % (test code = BA%) 0.4 % 0.0-2.0 N NUCLEATED RBC % (test code = 0.0 /100WBC% 0.0-1.0 N NRBC%) NEUTROPHIL # (test code = NT#) 2.9 K/mm3 1.8-7.6 N IMMATURE GRANULOCYTE # (test 0.01 x10 3/uL 0.00-0.03 N code = IG#) LYMPHOCYTE # (test code = LY#) 1.9 K/mm3 0.6-3.0 N MONOCYTE # (test code = MO#) 0.6 K/mm3 0.2-1.5 N EOSINOPHIL # (test code = EO#) 0.2 K/mm3 0.0-0.4 N BASOPHIL # (test code = BA#) 0.0 K/mm3 0.0-0.2 N NUCLEATED RBC # (test code = 0.0 K/mm3 0.00-0.01 N NRBC#) MANUAL DIFF REQUIRED (test code NO DIFF/SCN CRITERIA = MDIFF) LIPID PROFILE (CORONARY RISK)2021-01-07 12:26:00 Test Item Value Reference Range Interpretation Comments TRIGLYCERIDES (test 193 MG/DL 0-150 H code = TRIG) CHOLESTEROL (test 183 MG/DL 133-200 N code = CHOL) CHOLESTEROL/HDL 4.69 RATIO See_Comment RISK ASSOCIA BREANNE WITH RATIO (test code = CHOL/HDL RATIOS: RISK CHOLHDL) MAL E FEMALE1/2 A VERAGE 3.43 3.27AVERAGE 4.97 4.442X AVERAGE 9.55 7.05 3X AVERAGE 23.3 9 11.04 NOTE T HAT THE REFERENCE VALUE IS RELATED TO RISK LEVELS ASRECOMMENDED B Y [facility] . [Automated mess age] The system which Scoopinion nerated this result tra nsmitted reference range : 0-. The reference range was not used to interpr et this result as normal/abnormal . HDL CHOLESTEROL 39 MG/DL 40-59 L (test code = HDL) NON-HDL CHOLESTEROL 144 mg/dL <130 H (test code = NHDL) LIPOPROTEIN LDL 119 MG/DL 0-129 N <100 [id number] - (test code = LDL) 129 CELI R OPTIMAL/ABOVE [id number] - 15 9 [id number] - 189 HIGH>OR= 190 VERY HIGHNOTE THAT G UIDELINES ARE PROVIDED BY NATIONAL CHOLESTEROLEDUC ATION PROGRAM ADULT T REATMENT PANEL III LDL/HDL (test code 3.05 Ratio See_Comment N [Automat ed message] The = LDL/HDL) system which Scoopinion nerated this result tra nsmitted reference range : 1.48-3.22 Avg. The reference range was not used to interpr et this result as normal/abnormal . GLYCOSYLATED HEMOGLOBIN [id number] 12:24:00 Test Item Value Reference Range Interpretation Comments GLYCOSYLATED HEMOGLOBIN (HA1C) 5.8 % A1C 0.0-5.7 H (test code = GLYHGB) ESTIMATED AVERAGE GLUCOSE (test 120 MG/DLest code = EAG) GLUCOSE BEDSIDE [id number] 12:05:00 Test Item Value Reference Range Interpretation Comments GLUCOSE BEDSIDE TESTING (test code 151 mg/dL 70-110 H = GLUBED) - XR CHEST 1 [id number] 11:05:00 [facility] 1965 Sex: M Name: [facility] : 1965 Age/S: 55 / M [address] Unit #: [id number] Loc: [place] [address] Phys: Rolando Napier AGAHANNAP Acct: [id number] Dis Date: Status: ADM IN PHONE #: [phone] Exam Date: 01/07/2021 1050 FAX #: Reason: Cough EXAMS: CPT: [id number] XR CHEST 1 V [id number] Fluoro Time: DAP (Gy m2): Air Kerma (mGy): EXAMINATION: Frontal chest radiograph INDICATION: Cough COMPARISON: 01/03/2021 LOCATION: C1 FINDINGS: Enlarged cardiac silhouette with left chest defibrillator. Nodefinite pleural effusion or pneumothorax. No definite acute abnormality seen in the lungs accounting for overlying prominent soft tissues. IMPRESSION: No definite acute abnormality. at 1105 Reported and signed by: Vernon Garibay M.D. CC: Yared Scott MD; Rolando Napier PAGE 1 Signed Report Name: [facility] : 1965 Age/S: 55 / M [address] Unit #: [id number] Loc: [place] [address] Phys: Donovan NapierCHANDRA Acct: [id number] Dis Date: Status: ADM IN PHONE #: [phone] Exam Date: 01/07/2021 1050 FAX #: Reason: Cough EXAMS: CPT: [id number] XR CHEST 1 V 32352 Fluoro Time: DAP (Gy m2): Air Kerma (mGy): <Continued> Technologist: Jonna Ramirez RT(R)(MR) Trnscb Date/Time: 01/07/2021 (1105) [email or web address] Orig Print D/T: S: 01/07/2021 (1108) PAGE 2 Signed ReportGLUCOSE BEDSIDE [id number] 08:05:00 Test Item Value Reference Range Interpretation Comments GLUCOSE BEDSIDE TESTING (test code 105 mg/dL 70-110 N = GLUBED) GLUCOSE BEDSIDE [id number] 21:27:00 Test Item Value Reference Range Interpretation Comments GLUCOSE BEDSIDE TESTING (test code 100 mg/dL 70-110 N = GLUBED) GLUCOSE BEDSIDE [id number] 16:40:00 Test Item Value Reference Range Interpretation Comments GLUCOSE BEDSIDE TESTING (test code = 89 mg/dL 70-110 N GLUBED) GLUCOSE BEDSIDE [id number] 12:10:00 Test Item Value Reference Range Interpretation Comments GLUCOSE BEDSIDE TESTING (test code = 94 mg/dL 70-110 N GLUBED) GLUCOSE BEDSIDE [id number] 07:51:00 Test Item Value Reference Range Interpretation Comments GLUCOSE BEDSIDE TESTING (test code 102 mg/dL 70-110 N = GLUBED) GLUCOSE BEDSIDE [id number] 20:30:00 Test Item Value Reference Range Interpretation Comments GLUCOSE BEDSIDE TESTING (test code = 98 mg/dL 70-110 N GLUBED) GLUCOSE BEDSIDE [id number] 15:39:00 Test Item Value Reference Range Interpretation Comments GLUCOSE BEDSIDE TESTING (test code 102 mg/dL 70-110 N = GLUBED) - CT ANGIO [id number] 14:06:00 [facility] 1965 Sex: M Name: [facility] : 1965 Age/S: 55 / M [address] Unit #: [id number] Loc: [place] [address] Phys: Anabela Le MD Acct: [id number] Dis Date: Status: ADM IN PHONE #: [phone] Exam Date: 01/05/2021 1866 FAX #: Reason: CVA EXAMS: CPT: [id number] CT ANGIO NECK 15953 Exam: - CT ANGIO HEAD, - CT ANGIO NECK Location: B2 HISTORY: CVA, COMPARISON: 01/03/2021 TECHNIQUE: Axial images of the neck and head were obtained after administration of 100 mL Isovue-370 intravenous contrast. Images were reformatted to create coronal and sagittal maximum intensity projections. One or more of the followingdose reduction techniques were used: Automated exposure control, adjustment of the mA and/or kV according to patient size, and/or utilization of iterative reconstruction technique. GFR: Greater than 60 , Creatinine: 1.2 mg/dL DLP: 1184 mGy-cm. FINDINGS: CTA Neck Aorta and great vessel origins: No significant plaque at the aortic arch. Noocclusion or significant stenosis at the origins of the innominate, left common carotid and left subclavian arteries are within normal limits. Carotid arteries: Commoncarotid arteries are normal in caliber. Carotid bifurcations are patent and within normal limits. Origins of the internal carotid arteries are within normal limits. Extra cranial course of the internal carotid arteries are otherwise unremarkable. Origins of the external carotid arteries are patent and within normal limits. Vertebral arteries: The vertebral arteries arise from the bilateral subclavian arteries. There is no stenosis, occlusion or dissection. The degree of stenosis is based on end vessel luminal diameter per NASCET criteria. Neck: Fascial planes: Nodules are redemonstrated within the thyroid gland. Largest in the left thyroid lobe measures 2.9 cm, unchanged. Further characterization with thyroid ultrasound is recommended. Remaining PAGE 1 Signed Report (CONTINUED) Name: [facility]ADA : 1965 Age/S: 55 / M [address] [facility] Unit #: [id number] Loc: [place] [address] Phys: Anabela Le MD Acct: [id number] Dis Date: Status: ADM IN PHONE #: [phone] Exam Date: 01/05/2021 7254 FAX #: Reason: CVA EXAMS: CPT: [id number] CT ANGIO NECK [address]383 <Continued> visualized fascial planes ofthe neck are unremarkable. Lymph nodes: There is no cervical adenopathy. Bones: Spondylosis is noted in the mid cervical spine. There is reversal of normal cervical lordosis. No discrete osteolytic or osteosclerotic lesions are seen. Thorax: No significant abnormality. IMPRESSION: CTA neck 1. No stenosis, occlusion or dissection of the common or internal carotid arteries or vertebral arteries. 2. Nodules within the thyroid gland which can be better characterized with ultrasound on nonemergent basis. FINDINGS:CTA Head Internal carotid arteries: Patent. No significant abnormality. Middle cerebral arteries (M1 and M2 segments): Patent. No significant abnormality. Anterior cerebral arteries (A1 and A2 segments): Patent. No significant abnormality. Anterior communicating artery: Patent. No significant abnormality. Vertebral arteries (V4 segments): Patent. No significant abnormality. Basilar artery and branches: Patent. No significant abnormality. Posterior inferior, anterior inferior and superior cerebellar artery origins are patent. Posterior cerebral artery (P1 and P2 segments): Patent. No significant abnormality. PAGE 2 Signed Report (CONTINUED) Name: [facility] [place] : 1965 Age/S: 55 / M [address] Unit #: [id number] Loc: [place] [address] Phys: Anabela Le MD Acct: [id number] Dis Date: Status: ADM IN PHONE #: [phone] Exam Date: 01/05/2021 1335 FAX #: Reason: CVA EXAMS: CPT: [id number] CT ANGIO NECK [address]8786 <Continued> Posterior communicating arteries: Not visualized Distal cerebral arteries: Slight irregularity of distal cerebral arteries which may be in part artifactual although further vasculopathy is not excluded. There is no large vessel occlusion. There is no significant stenosis. No aneurysmal dilatation or vascular malformation. Dural venous sinuses: No visualized filling defects. Head with contrast: There is no acute intracranial hemorrhage, mass, mass effect, midline shift or extra-axial fluid collection. No abnormal parenchymal or leptomeningeal enhancement is present. The baker-white differentiation is maintained without evidence for acute major vessel infarct. There are areas of decreased attenuation within subcortical deep white matter which are nonspecific. Left globe prosthetic is present. There is mild mucosal thickening of the bilateral ethmoid air cells and right maxillary sinus. Dehiscence of the medial wall of the right orbit is noted. Bones of the calvaria and skull base are otherwise intact. IMPRESSION: CTA Head 1. No large vessel occlusion. No significant stenosis. No aneurysmal dilatation or vascular malformation. 2. Slight irregularity of distal cerebral arteries may be in part artifactual although further vasculopathy is considered. at 1406 Reported and signed by: Diego Paez M.D. PAGE 3 Signed Report (CONTINUED) Name: WILMER PARADA Rox[place] : 1965 Age/S: 55 / M [address] Unit #: [id number] Loc: [place], [place] [address]Okph: Anabela Le MD Acct: [id number] Dis Date: Status: ADM IN PHONE #: [phone] Exam Date: 01/05/2021 1335 FAX #: Reason: CVA EXAMS: CPT: [id number] CT ANGIO NECK [address] <Continued> CC: Anabela Le MD; Yared Scott MD Technologist:Gregory Sahni, RT(R)(CT); .. CTDI: DLP: Trnscb Date/Time: 01/05/2021 (1406) [email or web address] Orig Print D/T: S: 01/05/2021 (1410) PAGE 4 Signed Report- CT ANGIO [id number] 14:06:00 [facility] 1965 Sex: M [facility] 1965 Age/S: 55 / M [address] Unit #: [id number] Loc: [place] [address] Phys: Anabela Le MD Acct: [id number] Dis Date: Status: ADM IN PHONE #: [phone] Exam Date: 01/05/2021 1330 FAX #: Reason: CVA EXAMS: CPT: [id number] CT ANGIO HEAD 51095 Exam: - CT ANGIO HEAD, - CT ANGIO NECK Location: B2 HISTORY: CVA, COMPARISON: 01/03/2021 TECHNIQUE: Axial images of the neck and head were obtained after administration of 100 mL Isovue-370 intravenous contrast. Images were reformatted to create coronal and sagittal maximum intensity projections. One or more of the followingdose reduction techniques were used: Automated exposure control, adjustment of the mA and/or kV according to patient size, and/or utilization of iterative reconstruction technique. GFR: Greater than 60 , Creatinine: 1.2 mg/dL DLP: 1184 mGy-cm. FINDINGS: CTA Neck Aorta and great vessel origins: No significant plaque at the aortic arch. Noocclusion or significant stenosis at the origins of the innominate, left common carotid and left subclavian arteries are within normal limits. Carotid arteries: Commoncarotid arteries are normal in caliber. Carotid bifurcations are patent and within normal limits. Origins of the internal carotid arteries are within normal limits. Extra cranial course of the internal carotid arteries are otherwise unremarkable. Origins of the external carotid arteries are patent and within normal limits. Vertebral arteries: The vertebral arteries arise from the bilateral subclavian arteries. There is no stenosis, occlusion or dissection. The degree of stenosis is based on end vessel luminal diameter per NASCET criteria. Neck: Fascial planes: Nodules are redemonstrated within the thyroid gland. Largest in the left thyroid lobe measures 2.9 cm, unchanged. Further characterization with thyroid ultrasound is recommended. Remaining PAGE 1 Signed Report (CONTINUED) Name: [facility] : 1965 Age/S: 55 / M [address] Unit #: [id number] Loc: [place] [address] Phys: Anabela Le MD Acct: [id number] Dis Date: Status: ADM IN PHONE #: [phone] Exam Date: 01/05/2021 1330 FAX #: Reason: CVA EXAMS: CPT: [id number] CT ANGIO HEAD [address]698 <Continued> visualized fascial planes ofthe neck are unremarkable. Lymph nodes: There is no cervical adenopathy. Bones: Spondylosis is noted in the mid cervical spine. There is reversal of normal cervical lordosis. No discrete osteolytic or osteosclerotic lesions are seen. Thorax: No significant abnormality. IMPRESSION: CTA neck 1. No stenosis, occlusion or dissection of the common or internal carotid arteries or vertebral arteries. 2. Nodules within the thyroid gland which can be better characterized with ultrasound on nonemergent basis. FINDINGS:CTA Head Internal carotid arteries: Patent. No significant abnormality. Middle cerebral arteries (M1 and M2 segments): Patent. No significant abnormality. Anterior cerebral arteries (A1 and A2 segments): Patent. No significant abnormality. Anterior communicating artery: Patent. No significant abnormality. Vertebral arteries (V4 segments): Patent. No significant abnormality. Basilar artery and branches: Patent. No significant abnormality. Posterior inferior, anterior inferior and superior cerebellar artery origins are patent. Posterior cerebral artery (P1 and P2 segments): Patent. No significant abnormality. PAGE 2 Signed Report (CONTINUED) Name: [facility] : 1965 Age/S: 55 / M [address] Unit #: [id number] Loc: [place] [address] Phys: Anabela Le MD Acct: [id number] Dis Date: Status: ADM IN PHONE #: [phone] Exam Date: 01/05/2021 1330 FAX #: Reason: CVA EXAMS: CPT: [id number] CT ANGIO HEAD [address] <Continued> Posterior communicating arteries: Not visualized Distal cerebral arteries: Slight irregularity of distal cerebral arteries which may be in part artifactual although further vasculopathy is not excluded. There is no large vessel occlusion. There is no significant stenosis. No aneurysmal dilatation or vascular malformation. Dural venous sinuses: No visualized filling defects. Head with contrast: There is no acute intracranial hemorrhage, mass, mass effect, midline shift or extra-axial fluid collection. No abnormal parenchymal or leptomeningeal enhancement is present. The baker-white differentiation is maintained without evidence for acute major vessel infarct. There are areas of decreased attenuation within subcortical deep white matter which are nonspecific. Left globe prosthetic is present. There is mild mucosal thickening of the bilateral ethmoid air cells and right maxillary sinus. Dehiscence of the medial wall of the right orbit is noted. Bones of the calvaria and skull base are otherwise intact. IMPRESSION: CTA Head 1. No large vessel occlusion. No significant stenosis. No aneurysmal dilatation or vascular malformation. 2. Slight irregularity of distal cerebral arteries may be in part artifactual although further vasculopathy is considered. at 1406 Reported and signed by: Diego Paez M.D. PAGE 3 Signed Report (CONTINUED) Name: [facility] : 1965 Age/S: 55 / M [address] Unit #: [id number] Loc: [place], [place] [address]Rmru: Anabela Le MD Acct: [id number] Dis Date: Status: ADM IN PHONE #: [phone] Exam Date: 01/05/2021 1330 FAX #: Reason: CVA EXAMS: CPT: [id number] CT ANGIO HEAD [address] <Continued> CC: Anabela Le MD; Yared Scott MD Technologist:Gregory Sahni, RT(R)(CT); .. CTDI: DLP: Trnscb Date/Time: 01/05/2021 (1406) [email or web address] Orig Print D/T: S: 01/05/2021 (1410) PAGE 4 Signed ReportBASIC METABOLIC [id number] 12:38:00 Test Item Value Reference Range Interpretation Comments SODIUM (test code = NA) 139 mmol/L 134-147 N POTASSIUM (test code = 3.6 mmol/L 3.4-5.0 N K) CHLORIDE (test code = 107 mmol/L 100-108 N CL) CARBON DIOXIDE (test 23 mmol/L 21-32 N code = CO2) ANION GAP (test code = 9.0 GAP calc 4.0-15.0 N GAP) GLUCOSE (test code = 98 MG/DL 70-110 N GLU) BLOOD UREA NITROGEN 16 MG/DL 7-18 N (test code = BUN) GLOMERULAR FILTRATION >=60 max estimate >60 RATE (test code = GFR) estGFR CREATININE (test code = 1.1 MG/DL 0.8-1.3 N CREAT) CALCIUM (test code = CA) 9.0 MG/DL 8.5-10.1 N CBC W/AUTO [id number] 12:28:00 Test Item Value Reference Range Interpretation Comments WHITE BLOOD CELL (test code = 5.3 K/mm3 3.5-11.0 N WBC) RED BLOOD CELL (test code = 6.41 M/mm3 4.70-6.10 H RBC) HEMOGLOBIN (test code = HGB) 16.1 G/DL 12.3-15.9 H HEMATOCRIT (test code = HCT) 50.7 % 35.8-46.7 H MEAN CELL VOLUME (test code = 79.1 Fl 86.3-98.9 L MCV) MEAN CELL HGB (test code = MCH) 25.1 pg 28.9-34.4 L MEAN CELL HGB CONCETRATION 31.8 G/DL 32.1-34.5 L (test code = MCHC) RED CELL DISTRIBUTION WIDTH 17.8 SD 11.5-14.5 H (test code = RDW) PLATELET COUNT (test code = 234 K/mm3 150-450 N PLT) MEAN PLATELET VOLUME (test code 10.30 fL 7.0-9.6 H = MPV) NEUTROPHIL % (test code = NT%) 52.6 % 40-76 IMMATURE GRANULOCYTE % (test 0.2 % 0.0-5.0 N code = IG%) LYMPHOCYTE % (test code = LY%) 32.3 % 20.5-51.1 N MONOCYTE % (test code = MO%) 12.0 % 1.7-9.3 H EOSINOPHIL % (test code = EO%) 2.7 % 0.0-6.0 N BASOPHIL % (test code = BA%) 0.2 % 0.0-2.0 N NUCLEATED RBC % (test code = 0.0 /100WBC% 0.0-1.0 N NRBC%) NEUTROPHIL # (test code = NT#) 2.8 K/mm3 1.8-7.6 N IMMATURE GRANULOCYTE # (test 0.01 x10 3/uL 0.00-0.03 N code = IG#) LYMPHOCYTE # (test code = LY#) 1.7 K/mm3 0.6-3.0 N MONOCYTE # (test code = MO#) 0.6 K/mm3 0.2-1.5 N EOSINOPHIL # (test code = EO#) 0.1 K/mm3 0.0-0.4 N BASOPHIL # (test code = BA#) 0.0 K/mm3 0.0-0.2 N NUCLEATED RBC # (test code = 0.0 K/mm3 0.00-0.01 N NRBC#) MANUAL DIFF REQUIRED (test code NO DIFF/SCN CRITERIA = MDIFF) PROTHROMBIN [id number] 12:27:00 Test Item Value Reference Range Interpretation Comments PT PATIENT (test code = PTP) 12.1 SECONDS 9.3-12.9 N INTERNATIONAL NORMAL RATIO 1.08 INR Unit 0.8-1.2 N (test code = INR) THROMBOPLASTIN TIME [id number] 12:27:00 Test Item Value Reference Range Interpretation Comments THROMBOPLASTIN TIME PARTIAL 33.0 SECONDS 26-35 N (test code = PTT) GLUCOSE BEDSIDE [id number] 11:56:00 Test Item Value Reference Range Interpretation Comments GLUCOSE BEDSIDE TESTING (test code 101 mg/dL 70-110 N = GLUBED) - CT HEAD/BRAIN W/O [id number] 11:53:00 [facility] 1965 Sex: M Name: [facility] : 1965 Age/S: 55 / M [address] [address] Unit #: [id number] Loc: [place] [address] Phys: Susan Conway MD Acct: [id number] Dis Date: Status: ADM IN PHONE #: [phone] Exam Date: 01/05/2021 3059 FAX #: Reason: left sided weakness EXAMS: CPT: [id number] CT HEAD/BRAIN W/O CONT 08903 EXAM: CT Head without contrast Location: B2 HISTORY: Left-sided weakness, CVA COMPARISON: 01/03/2021 TECHNIQUE: Multiple transaxial images of the brain were obtained without intravenous contrast. Images were reformatted to create coronaland sagittal reconstructions. One or more of the following dose reduction techniques were used: Automated exposure control, adjustment of the mA and/or kV according to patient size, and/or utilization of iterative reconstruction technique. DLP: 804 mGy-cm. FINDINGS: There is no acute intracranial hemorrhage. There is no mass, mass effect, midline shift or extra-axial fluid collection. Brain parenchymal volumeand ventricular caliber are within normal limits. Baker-white differentiation is maintained. There is no evidence for acute major vessel infarct. There are areas of decreased attenuation within subcortical deep white matter which are nonspecific. 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 There is mild mucosal thickening of the ethmoid air cells. Remaining paranasal sinuses are clear. Mastoid air cells are clear. Bones of the calvaria and skull base are intact. IMPRESSION: 1. Stable examination. No acute intracranial abnormality. No acute hemorrhage, mass lesion or infarct. 2. Stable, chronic small vessel ischemic white matter disease. 3. Mild inflammatory disease of the ethmoid air cells. Preliminary findings were given to SAMUEL Zuñiga in the IMU at 1151 hours PAGE 1 Signed Report (CONTINUED) Name: [facility] : 1965 Age/S: 55 / M [address] [address] Unit #: [id number] Loc: [place] [address] Phys: Susan Conway MD Acct: [id number] Dis Date: Status: ADM IN PHONE #: [phone] Exam Date: 01/05/2021 8402 FAX #: Reason: left sided weakness EXAMS: CPT: [id number] CT HEAD/BRAIN W/O CONT 22037 <Continued> on 01/05/2021 FOR INTERNAL CODING PURPOSES ONLY RESULT CODE: CVR at 1153 Reported and signed by: Diego Paez M.D. CC:Susan Conway MD; Yared Scott MD Technologist:Gregory Sahni, RT(R)(CT); .. CTDI: DLP: Trnscb Date/Time: 01/05/2021 (1153) [email or web address] Orig Print D/T: S: 01/05/2021 (5671) PAGE 2 Signed ReportGLUCOSE BEDSIDE [id number] 07:54:00 Test Item Value Reference Range Interpretation Comments GLUCOSE BEDSIDE TESTING (test code 118 mg/dL 70-110 H = GLUBED) GLUCOSE BEDSIDE [id number] 21:52:00 Test Item Value Reference Range Interpretation Comments GLUCOSE BEDSIDE TESTING (test code = 98 mg/dL 70-110 N GLUBED) GLUCOSE BEDSIDE [id number] 15:47:00 Test Item Value Reference Range Interpretation Comments GLUCOSE BEDSIDE TESTING (test code 124 mg/dL 70-110 H = GLUBED) GLUCOSE BEDSIDE [id number] 11:34:00 Test Item Value Reference Range Interpretation Comments GLUCOSE BEDSIDE TESTING (test code 107 mg/dL 70-110 N = GLUBED) GLUCOSE BEDSIDE [id number] 07:37:00 Test Item Value Reference Range Interpretation Comments GLUCOSE BEDSIDE TESTING (test code 109 mg/dL 70-110 N = GLUBED) BASIC METABOLIC [id number] 04:53:00 Test Item Value Reference Range Interpretation Comments SODIUM (test code = NA) 142 mmol/L 134-147 N POTASSIUM (test code = 4.3 mmol/L 3.4-5.0 N K) CHLORIDE (test code = 109 mmol/L 100-108 H CL) CARBON DIOXIDE (test 27 mmol/L 21-32 N code = CO2) ANION GAP (test code = 6.0 GAP calc 4.0-15.0 N GAP) GLUCOSE (test code = 98 MG/DL 70-110 N GLU) BLOOD UREA NITROGEN 22 MG/DL 7-18 H (test code = BUN) GLOMERULAR FILTRATION >=60 max estimate >60 RATE (test code = GFR) estGFR CREATININE (test code = 1.2 MG/DL 0.8-1.3 N CREAT) CALCIUM (test code = CA) 8.7 MG/DL 8.5-10.1 N [id number] 04:53:00 Test Item Value Reference Range Interpretation Comments PHOSPHOROUS (test code = PHOS) 3.8 MG/DL 2.5-4.9 N [id number] 04:53:00 Test Item Value Reference Range Interpretation Comments MAGNESIUM (test code = MAG) 2.1 MG/DL 1.8-2.4 N NT PRO-BRAIN NATRIURETIC [id number] 04:53:00 Test Item Value Reference Range Interpretation Comments NT PRO-BRAIN NATRIURETIC PEPTI 753 PG/ML 0-100 H (test code = PROBNP) BASIC METABOLIC [id number] 04:47:00 Test Item Value Reference Range Interpretation Comments SODIUM (test code = NA) 142 mmol/L 134-147 N POTASSIUM (test code = K) 4.3 mmol/L 3.4-5.0 N CHLORIDE (test code = CL) 109 mmol/L 100-108 H CARBON DIOXIDE (test code = CO2) 27 mmol/L 21-32 N ANION GAP (test code = GAP) 6.0 GAP calc 4.0-15.0 N GLUCOSE (test code = GLU) 98 MG/DL 70-110 N BLOOD UREA NITROGEN (test code = 22 MG/DL 7-18 H BUN) GLOMERULAR FILTRATION RATE (test estGFR >60 code = GFR) CREATININE (test code = CREAT) MG/DL 0.8-1.3 CALCIUM (test code = CA) 8.7 MG/DL 8.5-10.1 N [id number] 04:47:00 Test Item Value Reference Range Interpretation Comments PHOSPHOROUS (test code = PHOS) MG/DL 2.5-4.9 [id number] 04:47:00 Test Item Value Reference Range Interpretation Comments MAGNESIUM (test code = MAG) 2.1 MG/DL 1.8-2.4 N NT PRO-BRAIN NATRIURETIC [id number] 04:47:00 Test Item Value Reference Range Interpretation Comments NT PRO-BRAIN NATRIURETIC PEPTI (test PG/ML 0-100 code = PROBNP) CBC W/AUTO [id number] 04:34:00 Test Item Value Reference Range Interpretation Comments WHITE BLOOD CELL (test code = 4.9 K/mm3 3.5-11.0 N WBC) RED BLOOD CELL (test code = 5.52 M/mm3 4.70-6.10 N RBC) HEMOGLOBIN (test code = HGB) 13.9 G/DL 12.3-15.9 N HEMATOCRIT (test code = HCT) 45.0 % 35.8-46.7 N MEAN CELL VOLUME (test code = 81.5 Fl 86.3-98.9 L MCV) MEAN CELL HGB (test code = MCH) 25.2 pg 28.9-34.4 L MEAN CELL HGB CONCETRATION 30.9 G/DL 32.1-34.5 L (test code = MCHC) RED CELL DISTRIBUTION WIDTH 16.3 SD 11.5-14.5 H (test code = RDW) PLATELET COUNT (test code = 188 K/mm3 150-450 N PLT) MEAN PLATELET VOLUME (test code 10.40 fL 7.0-9.6 H = MPV) NEUTROPHIL % (test code = NT%) 44.5 % 40-76 N IMMATURE GRANULOCYTE % (test 0.2 % 0.0-5.0 N code = IG%) LYMPHOCYTE % (test code = LY%) 41.3 % 20.5-51.1 N MONOCYTE % (test code = MO%) 11.3 % 1.7-9.3 H EOSINOPHIL % (test code = EO%) 2.5 % 0.0-6.0 N BASOPHIL % (test code = BA%) 0.2 % 0.0-2.0 N NUCLEATED RBC % (test code = 0.0 /100WBC% 0.0-1.0 N NRBC%) NEUTROPHIL # (test code = NT#) 2.2 K/mm3 1.8-7.6 N IMMATURE GRANULOCYTE # (test 0.01 x10 3/uL 0.00-0.03 N code = IG#) LYMPHOCYTE # (test code = LY#) 2.0 K/mm3 0.6-3.0 N MONOCYTE # (test code = MO#) 0.6 K/mm3 0.2-1.5 N EOSINOPHIL # (test code = EO#) 0.1 K/mm3 0.0-0.4 N BASOPHIL # (test code = BA#) 0.0 K/mm3 0.0-0.2 N NUCLEATED RBC # (test code = 0.0 K/mm3 0.00-0.01 N NRBC#) MANUAL DIFF REQUIRED (test code NO DIFF/SCN CRITERIA = MDIFF) GLUCOSE BEDSIDE [id number] 22:32:00 Test Item Value Reference Range Interpretation Comments GLUCOSE BEDSIDE TESTING (test code = 88 mg/dL 70-110 N GLUBED) GLUCOSE BEDSIDE [id number] 17:59:00 Test Item Value Reference Range Interpretation Comments GLUCOSE BEDSIDE TESTING (test code = 97 mg/dL 70-110 N GLUBED) - XR CHEST 1 [id number] 17:25:00 [facility] 1965 Sex: M Name: [facility] : 1965 Age/S: 55 / M [address] [address] Unit #: [id number] Loc: [place] [address] Phys: KarthikeyanRosinao AGACNP Acct: [id number] Dis Date: Status: ADM IN PHONE #: [phone] Exam Date: 01/03/2021 1516 FAX #: Reason: Dyspnea EXAMS: CPT: [id number] XR CHEST 1 V 24837 Fluoro Time: DAP (Gy m2): Air Kerma (mGy): EXAM: CHEST ONE VIEW INDICATION: Dyspnea LOCATION: B2 COMPARISON: November 29, 2020TECHNIQUE: AP view of the chest FINDINGS: The heart size is enlarged. There colby cardiac pacing device in the left chest with no apparent discontinuity of the leads. There are diffuse congestive changes bilaterally. No pneumothorax or pleural effusion is identified. The osseous structures are normal. IMPRESSION: Cardiomegaly with diffuse congestive changes bilaterally. at 1725 Reported and signed by: Cindy Zabala M.D. CC: Yared Scott MD; Rolando Taylor 1 Signed Report Name: [facility] : 1965 Age/S: 55 / M [address] [address] Unit #: [id number] Loc: [place] [address] Phys: Rolando Napier Acct: [id number] Dis Date: Status: ADM IN PHONE #: [phone] Exam Date: 01/03/2021 6214 FAX #: Reason: Dyspnea EXAMS: CPT: [id number] XR CHEST 1 V 76042 Fluoro Time: DAP (Gy m2): Air Kerma (mGy): <Continued> Technologist: Polly Mcnamara, RT(R)(CT); Nikole Rider RT(R) Trnscb Date/Time: 01/03/2021 (172) 16 Orig Print D/T: S: 01/03/2021 (6023) PAGE 2 Signed ReportBASIC METABOLIC PANEL 2021-01-03 14:57:00 Test Item Value Reference Range Interpretation Comments SODIUM (test code = NA) 142 mmol/L 134-147 N POTASSIUM (test code = 3.8 mmol/L 3.4-5.0 N K) CHLORIDE (test code = 107 mmol/L 100-108 N CL) CARBON DIOXIDE (test 26 mmol/L 21-32 N code = CO2) ANION GAP (test code = 9.0 GAP calc 4.0-15.0 N GAP) GLUCOSE (test code = 100 MG/DL 70-110 N GLU) BLOOD UREA NITROGEN 26 MG/DL 7-18 H (test code = BUN) GLOMERULAR FILTRATION >=60 max estimate >60 RATE (test code = GFR) estGFR CREATININE (test code = 1.4 MG/DL 0.8-1.3 H CREAT) CALCIUM (test code = CA) 8.9 MG/DL 8.5-10.1 N Completed by Nursing: [id number] 14:57:00 Test Item Value Reference Range Interpretation Comments TROPONIN-I (test 0.020 NG/ML 0.000-0.045 N Negative: < /= 0.045 code = TROPI) Positive: >/= 0.046 Correlation wit h serial results, other cardiac markers, and cl inical findings is nec essary to determine the c linical significance of this result. Quantit ative results using d ifferent methodologies s hould not be compared to one another as nume rical results may suzy yby method. Completed by Nursing: NOCOVID 19 INHOUSE [id number] 14:55:00 Test Item Value Reference Range Interpretation Comments COVID 19 INHOUSE AG NEGATIVE Negative Per manu facturer, (test code = negative result s should [id number]) be treated aspr esumptive and, if inconsi stent with clinical signs andsymptoms or necessary for patient man agement, should betested with an alternative mol ecular assay. Negative resultsdo not preclude SA RS-CoV-2 infection and s hould not be usedas the s ole basis for patient man agement decisions. Neg ative results should be considered in t he context of apatient's r ecent exposures, hist ory, presence of cli nicalsigns and symptoms co nsistent with COVID-19. Spec Comments: NPROTHROMBIN [id number] 14:54:00 Test Item Value Reference Range Interpretation Comments PT PATIENT (test code = PTP) 11.0 SECONDS 9.3-12.9 N INTERNATIONAL NORMAL RATIO 0.98 INR Unit 0.8-1.2 N (test code = INR) THROMBOPLASTIN TIME [id number] 14:54:00 Test Item Value Reference Range Interpretation Comments THROMBOPLASTIN TIME PARTIAL 30.0 SECONDS 26-35 N (test code = PTT) - CT ANGIO [id number] 14:53:00 [facility] 1965 Sex: M Name: WILMER PARADA : 1965 Age/S: 55 / M [id number] [address] Unit #: [id number] Loc: [place] [address] Phys: Musa Alfaro DO Acct: [id number] Dis Date: Status: REG ER PHONE #: [phone] Exam Date: 01/03/20211424 FAX #: Reason: left sided weakness EXAMS: CPT: [id number] CT ANGIO HEAD [address] B2 - CT ANGIO NECK, - CT ANGIO HEAD HISTORY: left sided weakness TECHNIQUE: Axial CT images were obtained from the aortic arch to the skull vertex afterintravenous contrast utilizing CTA protocol. Maximum intensity projection images were created from the data set. One or more of the following dose reduction techniques were used: Automated exposure control, adjustment of the mA and/or kV according to patient size, and/or iterative reconstruction. COMPARISON: None FINDINGS: CTA NECK: The imaged aortic arch is normal. The origins of the brachiocephalic, bilateral common carotid, bilateral subclavian, and bilateral vertebral arteries demonstrate no significant stenosis. The bilateral internal and external carotid arteries are patent. There is no significant internal carotid artery stenosis by NASCET-like criteria. The cervical vertebral arteries are patent and codominant. There is no evidence of arterial dissection, significant stenosis, occlusion, extravasation of contrast material, arteriovenous fistula or pseudoaneurysm. Maximum intensity projection images confirm these findings. CTA HEAD: The petrous, cavernous, and supraclinoid segments of the bilateral internal carotid arteries are normal. The ophthalmic artery origins are visualized and normal. The posterior communicating arteries are patent. Anterior and middle cerebral arteries are normal bilaterally. The anterior communicating artery is patent. PAGE 1 Signed Report (CONTINUED) Name: WILMER PARADA : 1965 Age/S: 55 / M [id number] [address] Unit #: [id number] Loc: [place] [address] Phys: Musa Alfaro DO Acct: [id number] Dis Date: Status: REG ER PHONE #: [phone] Exam Date: 01/03/2021 1425 FAX #: Reason: left sided weakness EXAMS: CPT:[id number] CT ANGIO HEAD [address] <Continued> Both posterior cerebral arteries are normal. The vertebral arteries are patent and codominant. The basilar artery and origins of the bilateral posterior inferior cerebellar arteries, anterior inferior cerebellar arteries, and superior cerebellar arteries are normal. No saccular aneurysm, proximal arterial cut off, intra- arterial clot, or hemodynamically significant intracranial arterial stenosis is present. Maximum intensity projection images confirm these findings. IMPRESSION: Normal head and neck CTA. at 1453 Reported and signed by: Dagoberto Mayer M.D. CC: Musa Alfaro DO Technologist:Nikole Rider RT(R) CTDI: DLP: Trnscb Date/Time: 01/03/2021 (009) [email or web address] Orig Print D/T: S: 01/03/2021 (7096) PAGE 2 Signed Report- CT ANGIO [id number] 14:53:00 [facility] : 1965 Sex: M Name: [facility] : 1965 Age/S: 55 / M [address] Unit #: [id number] Loc: [place] [address] Phys: Musa Alfaro DO Acct: [id number] Dis Date: Status: REG ER PHONE #: [phone] Exam Date: 01/03/2021 1429 FAX #: Reason: left sided weakness EXAMS: CPT: [id number] CT ANGIO NECK [address] B2 - CT ANGIO NECK, - CT ANGIO HEAD HISTORY: left sided weakness TECHNIQUE: Axial CT images were obtained from the aortic arch to the skull vertex afterintravenous contrast utilizing CTA protocol. Maximum intensity projection images were created from the data set. One or more of the following dose reduction techniques were used: Automated exposure control, adjustment of the mA and/or kV according to patient size, and/or iterative reconstruction. COMPARISON: None FINDINGS: CTA NECK: The imaged aortic arch is normal. The origins of the brachiocephalic, bilateral common carotid, bilateral subclavian, and bilateral vertebral arteries demonstrate no significant stenosis. The bilateral internal and external carotid arteries are patent. There is no significant internal carotid artery stenosis by NASCET-like criteria. The cervical vertebral arteries are patent and codominant. There is no evidence of arterial dissection, significant stenosis, occlusion, extravasation of contrast material, arteriovenous fistula or pseudoaneurysm. Maximum intensity projection images confirm these findings. CTA HEAD: The petrous, cavernous, and supraclinoid segments of the bilateral internal carotid arteries are normal. The ophthalmic artery origins are visualized and normal. The posterior communicating arteries are patent. Anterior and middle cerebral arteries are normal bilaterally. The anterior communicating artery is patent. PAGE 1 Signed Report (CONTINUED) Name: [facility] : 1965 Age/S: 55 / M [address] [address] Unit #: [id number] Loc: [place] [address] Phys: Musa Alfaro DO Acct: [id number] Dis Date: Status: REG ER PHONE #: [phone] Exam Date: 01/03/2021 4596 FAX #: Reason: left sided weakness EXAMS: CPT:[id number] CT ANGIO NECK [address] <Continued> Both posterior cerebral arteries are normal. The vertebral arteries are patent and codominant. The basilar artery and origins of the bilateral posterior inferior cerebellar arteries, anterior inferior cerebellar arteries, and superior cerebellar arteries are normal. No saccular aneurysm, proximal arterial cut off, intra- arterial clot, or hemodynamically significant intracranial arterial stenosis is present. Maximum intensity projection images confirm these findings. IMPRESSION: Normal head and neck CTA. at 1453 Reported and signed by: Dagoberto Mayer M.D. CC: Musa Alfaro DO Technologist:Nikole Rider, RT(R) CTDI: DLP: Trnscb Date/Time: 01/03/2021 (8717) [id number] Orig Print D/T: S: 01/03/2021 (1289) PAGE 2 Signed ReportCBC W/O [id number] 14:32:00 Test Item Value Reference Range Interpretation Comments WHITE BLOOD CELL (test code = WBC) 5.1 K/mm3 3.5-11.0 N RED BLOOD CELL (test code = RBC) 5.68 M/mm3 4.70-6.10 N HEMOGLOBIN (test code = HGB) 14.3 G/DL 12.3-15.9 N HEMATOCRIT (test code = HCT) 46.5 % 35.8-46.7 N MEAN CELL VOLUME (test code = MCV) 81.9 Fl 86.3-98.9 L MEAN CELL HGB (test code = MCH) 25.2 pg 28.9-34.4 L MEAN CELL HGB CONCETRATION (test 30.8 G/DL 32.1-34.5 L code = MCHC) RED CELL DISTRIBUTION WIDTH (test 16.6 SD 11.5-14.5 H code = RDW) PLATELET COUNT (test code = PLT) 198 K/mm3 150-450 N MEAN PLATELET VOLUME (test code = 10.30 fL 7.0-9.6 H MPV) - CT HEAD/BRAIN W/O [id number] 14:20:00 [facility] : 1965 Sex: M Name: [facility] : 1965 Age/S: 55 / M [address] Unit #: [id number] Loc: [place] [address] Phys: Musa Alfaro DO Acct: [id number] Dis Date: Status: PRE ER PHONE #: [phone] Exam Date: 01/03/2021 1407 FAX #: Reason: Code Stroke EXAMS: CPT: [id number] CT HEAD/BRAIN W/O CONT 30205 EXAMINATION: Head CT without contrast INDICATION: Code stroke COMPARISON: 11/29/2020 LOCATION: S17 TECHNIQUE: Axial noncontrast head CT was performed. Sagittal and coronal reformatted images were created. CT radiation dose optimization is achieved for this examination by the use of a CT protocol in accordance with ACR practice guidelines and adherence to instrument room technician recommendations. DLP: 836 mGy-cm. FINDINGS: Mild-moderate supratentorial white matter hypodensities which may represent chronic microvascular ischemic changes although nonspecific. No mass effect, intracranial hemorrhage, or extra-axial fluid collection. No CT evidence of acute cortical infarct. Prosthetic left globe. Unremarkable right orbit. Imaged paranasal sinuses and mastoid aircells are clear. No acute osseous abnormality is identified. IMPRESSION: No acute intracranial abnormality identified. Discussed with Dr. Alfaro at 1419 on 01/03/2021. at 1420 Reported and signed by: Vernon Garibay M.D. CC: Musa Alfaro DO Technologist:Juan Hernandez, RT(R)(CT); [place] CTDI: DLP: Trnscb Date/Time: 01/03/2021 (1420) [id number] Orig Print D/T: S: 01/03/2021 (8941) PAGE 1 Signed ReportGLUCOSE BEDSIDE [id number] 11:35:00 Test Item Value Reference Range Interpretation Comments GLUCOSE BEDSIDE TESTING (test code 115 MG/DL 70-119 N = GLUBED) CBC W/AUTO [id number] 09:54:00 Test Item Value Reference Range Interpretation Comments WHITE BLOOD CELL (test code = 4.9 K/mm3 4.1-12.1 N WBC) RED BLOOD CELL (test code = RBC) 6.10 M/mm3 3.8-5.5 H HEMOGLOBIN (test code = HGB) 15.1 G/DL 10.6-15.8 N HEMATOCRIT (test code = HCT) 49.2 % 31.8-47.4 H MEAN CELL VOLUME (test code = 80.7 fL 80.1-101.1 N MCV) MEAN CELL HGB (test code = MCH) 24.8 pg 25.3-35.3 L MEAN CELL HGB CONCETRATION (test 30.7 G/DL 32.7-35.1 L code = MCHC) RED CELL DISTRIBUTION WIDTH 18.2 % 12.2-16.4 H (test code = RDW) RED CELL DISTRIBUTION WIDTH 50.4 fL 35.1-43.9 H (test code = RDW-SD) PLATELET COUNT (test code = PLT) 220 K/mm3 155-337 N MEAN PLATELET VOLUME (test code 10.5 fL 7.6-10.4 H = MPV) GRANULOCYTE % (test code = GR%) 53.9 % 37.8-82.6 N IMMATURE GRANULOCYTE % (test 0.4 % 0.0-2.0 N code = IG%) LYMPHOCYTE % (test code = LY%) 34.5 % 14.1-45.4 N MONOCYTE % (test code = MO%) 9.4 % 2.5-11.7 N EOSINOPHIL % (test code = EO%) 1.6 % 0.0-6.2 N BASOPHIL % (test code = BA%) 0.2 % 0.0-2.6 N NUCLEATED RBC % (test code = 0.0 /100WBC% 0.0-1.0 N NRBC%) GRANULOCYTE # (test code = GR#) 2.62 k/mm3 2.0-13.7 N IMMATURE GRANULOCYTE # (test 0.02 K/mm3 0.00-0.03 N code = IG#) LYMPHOCYTE # (test code = LY#) 1.68 K/mm3 0.6-3.8 N MONOCYTE # (test code = MO#) 0.46 K/mm3 0.11-0.59 N EOSINOPHIL # (test code = EO#) 0.08 K/mm3 0.0-0.4 N BASOPHIL # (test code = BA#) 0.01 K/mm3 0.0-0.1 N NUCLEATED RBC # (test code = 0.00 K/mm3 0.00-0.05 N NRBC#) RECOLLECTGLUCOSE BEDSIDE [id number] 07:34:00 Test Item Value Reference Range Interpretation Comments GLUCOSE BEDSIDE TESTING (test code 116 MG/DL 70-119 N = GLUBED) BASIC METABOLIC [id number] 06:24:00 Test Item Value Reference Range Interpretation Comments SODIUM (test code = 136.0 mmol/L 133-144 N NA) POTASSIUM (test 4.1 mmol/L 3.5-5.1 N code = K) CHLORIDE (test code 106 mmol/L 95-105 H = CL) CARBON DIOXIDE 23 mmol/L 21-32 N (test code = CO2) ANION GAP (test 7.0 GAP calc 4.0-15.0 N code = GAP) GLUCOSE (test code 97 MG/DL 70-110 N = GLU) BLOOD UREA NITROGEN 18 MG/DL 7-18 N (test code = BUN) CREATININE (test 1.10 MG/DL 0.55-1.30 N Results may be code = CREAT) depressed if p atient is takingN-Acetylc ystei ne (NAC) and Metamizole (Dipyrone). CALCIUM (test code 8.6 MG/DL 8.5-10.1 N = CA) INDEX HEMOLYSIS 4 SMALL 50-200 See_Comment A [Automate d message] (test code = MG Index/DL The system [employer]) generated this result transmit breanne reference range : 1 NORMAL. The reference range was not used to interpret this result as normal/abnormal . INDEX ICTERIC (test 1 NORMAL <2 MG See_Comment [Auto mated message] code = ICTINDEX) Index/DL The system which generated this result transmit breanne reference range : 1 NORMAL. The reference range was not used to interpret this result as normal/abnormal . INDEX LIPEMIA (test 1 NORMAL <50 MG See_Comment [Aut omated message] code = LIPINDEX) Index/DL The system which generated this result transmit breanne reference range : 1 NORMAL. The reference range was not used to interpret this result as normal/abnormal . [id number] 06:24:00 Test Item Value Reference Range Interpretation Comments MAGNESIUM (test code = MAG) 2.3 MG/DL 1.6-2.6 N GLUCOSE BEDSIDE [id number] 20:37:00 Test Item Value Reference Range Interpretation Comments GLUCOSE BEDSIDE TESTING (test code 118 MG/DL 70-119 N = GLUBED) GLUCOSE BEDSIDE [id number] 16:47:00 Test Item Value Reference Range Interpretation Comments GLUCOSE BEDSIDE TESTING (test code 100 MG/DL 70-119 N = GLUBED) GLUCOSE BEDSIDE [id number] 07:44:00 Test Item Value Reference Range Interpretation Comments GLUCOSE BEDSIDE TESTING (test code 121 MG/DL 70-119 H = GLUBED) GLUCOSE BEDSIDE [id number] 19:59:00 Test Item Value Reference Range Interpretation Comments GLUCOSE BEDSIDE TESTING (test code 135 MG/DL 70-119 H = GLUBED) GLUCOSE BEDSIDE [id number] 15:51:00 Test Item Value Reference Range Interpretation Comments GLUCOSE BEDSIDE TESTING (test code = 85 MG/DL 70-119 N GLUBED) - NM MYOCRD SPECT R/S [id number] 13:57:00 [facility] : 1965 Sex: M ------- Patient Name: WILMER PARADA Unit No: [id number] EXAMS: CPT CODE: [id number] NM MYOCRD SPECT R/S MULT 39803 Patient was brought to the stress test room. Baseline EKG was obtained and EKG and hemodynamics were monitored throughout the procedure. Patient was injected 17.9 mCi of technetium sestamibi at rest and resting images were obtained. Lexiscan was then given per protocol technetium 33.8 mCi was injected at the stress test phase. Perfusion images analysis revealeda medium, moderate, reversible inferior defect, in addition there is a large fixed lateral defect. Wall motion analysis revealed severe global hypokinesis. EF was calculated at 19%. IMPRESSION: Medium, moderate inferior ischemia. Large lateral scar. Severe global hypokinesis. EF calculated at 19%. at 1357 Reported and signed by: Leeroy Huber MD Nuclear Medicine Cardiology exams performed on dual head cameras with appropriate software for processing and reporting. CC: Alexa DELA CRUZ CNP,SIVAN Montelongo; Jake Olmos DO EMILY Rao NAME: [employer] PHYS: Alexa Farrell APRN[address] : 1965 AGE: 54 SEX: Kenrick [place]O, [place] [address] LOC: B.245 W PHONE #: [phone] EXAM DATE: 12/01/2020 STATUS: ADM IN FAX #: [phone] RAD NO: DC Dt: PAGE 1 Signed Report Patient Name: TALSagge Unit No: [id number] EXAMS: CPT CODE: [id number] NM MYOCRD SPECT R/S MULT 50245 <Continued> Technologist: Macy Sepulveda Transcribed Date/Time: 12/03/2020 (1985)- [email or web address] Orig Print D/T: S: 12/03/2020 (1400) EMILY Rao NAME: [employer] PHYS: Alexa Farrell APRN,C [address] [place] [address] BLVD : 1965 AGE: 54 SEX: Ken[place], [place] [address] [id number] LOC: Gurpreet W PHONE #: [phone] EXAM DATE: 12/01/2020 STATUS: ADM IN FAX #: [phone] RAD NO: DC Dt: PAGE 2 Signed ReportGLUCOSE BEDSIDE [id number] 11:46:00 Test Item Value Reference Range Interpretation Comments GLUCOSE BEDSIDE TESTING (test code 114 MG/DL 70-119 N = GLUBED) [id number] 07:43:00 Test Item Value Reference Range Interpretation Comments CKMB (test code = 1.1 NG/ML 1.0-3.6 N MONOCLONAL CKMB CKMBT) METHODOLOGY. [id number] 07:43:00 Test Item Value Reference Range Interpretation Comments TROPONIN-I 0.031 NG/ML 0.000-0.045 INTERPRET WITH CAUTION, THIS (test code = VALUE EXCEEDS T HE LOWER TROPI) LIMITOF LINEARI TY VERIFICATION ES TABLISHED BY THE LABORATORY. An elevated troponin value alone is not sufficient todi agnose a myocardial infa rction. Rather, the pat ient'sclinical presentation (h istory, physical exam) and ECGshould be used in conj unction with troponin in the diagnostic evaluation of s uspected myocardial infa rction. Aserial samplin g protocol is recommended to facilitate theidentificati on of temporal changes in trop onin levelscharacter istic of [place]. GLUCOSE BEDSIDE [id number] 07:35:00 Test Item Value Reference Range Interpretation Comments GLUCOSE BEDSIDE TESTING (test code 104 MG/DL 70-119 N = GLUBED) [id number] 07:24:00 Test Item Value Reference Range Interpretation Comments CKMB (test code = CKMBT) NG/ML 1.0-3.6 [id number] 07:24:00 Test Item Value Reference Range Interpretation Comments TROPONIN-I 0.031 NG/ML 0.000-0.045 INTERPRET WITH CAUTION, THIS (test code = VALUE EXCEEDS T HE LOWER TROPI) LIMITOF LINEARI TY VERIFICATION ES TABLISHED BY THE LABORATORY. An elevated troponin value alone is not sufficient todi agnose a myocardial infa rction. Rather, the pat ient'sclinical presentation (h istory, physical exam) and ECGshould be used in conj unction with troponin in the diagnostic evaluation of s uspected myocardial infa rction. Aserial samplin g protocol is recommended to facilitate theidentificati on of temporal changes in trop onin levelscharacter istic of [place]. BASIC METABOLIC [id number] 06:50:00 Test Item Value Reference Range Interpretation Comments SODIUM (test code = 139.0 mmol/L 133-144 N NA) POTASSIUM (test 3.6 mmol/L 3.5-5.1 N code = K) CHLORIDE (test code 108 mmol/L 95-105 H = CL) CARBON DIOXIDE 23 mmol/L 21-32 N (test code = CO2) ANION GAP (test 8.0 GAP calc 4.0-15.0 N code = GAP) GLUCOSE (test code 95 MG/DL 70-110 N = GLU) BLOOD UREA NITROGEN 15 MG/DL 7-18 N (test code = BUN) CREATININE (test 1.14 MG/DL 0.55-1.30 N Results may be code = CREAT) depressed if p atient is takingN-Acetylc ystei ne (NAC) and Metamizole (Dipyrone). CALCIUM (test code 8.6 MG/DL 8.5-10.1 N = CA) INDEX HEMOLYSIS 1 NORMAL <10 MG See_Comment [Automat ed message] (test code = Index/DL The system [employer] HEMINDEX) generated this result transmit breanne reference range : 1 NORMAL. The reference range was not used to interpret this result as normal/abnormal . INDEX ICTERIC (test 1 NORMAL <2 MG See_Comment [Auto mated message] code = ICTINDEX) Index/DL The system which generated this result transmit breanne reference range : 1 NORMAL. The reference range was not used to interpret this result as normal/abnormal . INDEX LIPEMIA (test 1 NORMAL <50 MG See_Comment [Aut omated message] code = LIPINDEX) Index/DL The system which generated this result transmit breanne reference range : 1 NORMAL. The reference range was not used to interpret this result as normal/abnormal . [id number] 06:50:00 Test Item Value Reference Range Interpretation Comments MAGNESIUM (test code = MAG) 2.2 MG/DL 1.6-2.6 N BASIC METABOLIC [id number] 06:24:00 Test Item Value Reference Range Interpretation Comments SODIUM (test code = 139.0 mmol/L 133-144 N NA) POTASSIUM (test 3.6 mmol/L 3.5-5.1 N code = K) CHLORIDE (test code 108 mmol/L 95-105 H = CL) CARBON DIOXIDE mmol/L 21-32 (test code = CO2) ANION GAP (test GAP calc 4.0-15.0 code = GAP) GLUCOSE (test code MG/DL 70-110 = GLU) BLOOD UREA NITROGEN MG/DL 7-18 (test code = BUN) CREATININE (test MG/DL 0.55-1.30 code = CREAT) CALCIUM (test code MG/DL 8.5-10.1 = CA) INDEX HEMOLYSIS 1 NORMAL <10 MG See_Comment [Automat ed message] (test code = Index/DL The system [employer]) generated this result transmit breanne reference range : 1 NORMAL. The reference range was not used to interpret this result as normal/abnormal . INDEX ICTERIC (test 1 NORMAL <2 MG See_Comment [Auto mated message] code = ICTINDEX) Index/DL The system which generated this result transmit breanne reference range : 1 NORMAL. The reference range was not used to interpret this result as normal/abnormal . INDEX LIPEMIA (test 1 NORMAL <50 MG See_Comment [Aut omated message] code = LIPINDEX) Index/DL The system which generated this result transmit breanne reference range : 1 NORMAL. The reference range was not used to interpret this result as normal/abnormal . [id number] 06:24:00 Test Item Value Reference Range Interpretation Comments MAGNESIUM (test code = MAG) MG/DL 1.6-2.6 GLUCOSE BEDSIDE [id number] 19:35:00 Test Item Value Reference Range Interpretation Comments GLUCOSE BEDSIDE TESTING (test code 130 MG/DL 70-119 H = GLUBED) GLUCOSE BEDSIDE [id number] 16:35:00 Test Item Value Reference Range Interpretation Comments GLUCOSE BEDSIDE TESTING 103 MG/DL 70-119 N Noti fied Nurse~ (test code = GLUBED) GLUCOSE BEDSIDE [id number] 12:00:00 Test Item Value Reference Range Interpretation Comments GLUCOSE BEDSIDE TESTING 128 MG/DL 70-119 H Noti fied Nurse~ (test code = GLUBED) GLUCOSE BEDSIDE [id number] 08:28:00 Test Item Value Reference Range Interpretation Comments GLUCOSE BEDSIDE TESTING 123 MG/DL 70-119 H Noti fied Nurse~ (test code = GLUBED) GLUCOSE BEDSIDE [id number] 19:40:00 Test Item Value Reference Range Interpretation Comments GLUCOSE BEDSIDE TESTING (test code = 84 MG/DL 70-119 N GLUBED) GLUCOSE BEDSIDE [id number] 16:53:00 Test Item Value Reference Range Interpretation Comments GLUCOSE BEDSIDE TESTING 100 MG/DL 70-119 N Noti fied Nurse~ (test code = GLUBED) GLUCOSE BEDSIDE [id number] 13:00:00 Test Item Value Reference Range Interpretation Comments GLUCOSE BEDSIDE TESTING (test code 128 MG/DL 70-119 H = GLUBED) GLUCOSE BEDSIDE [id number] 08:35:00 Test Item Value Reference Range Interpretation Comments GLUCOSE BEDSIDE TESTING (test code = 95 MG/DL 70-119 N GLUBED) GLUCOSE BEDSIDE [id number] 19:49:00 Test Item Value Reference Range Interpretation Comments GLUCOSE BEDSIDE TESTING (test code 117 MG/DL 70-119 N = GLUBED) GLUCOSE BEDSIDE [id number] 16:52:00 Test Item Value Reference Range Interpretation Comments GLUCOSE BEDSIDE TESTING (test code 103 MG/DL 70-119 N = GLUBED) GLUCOSE BEDSIDE [id number] 12:30:00 Test Item Value Reference Range Interpretation Comments GLUCOSE BEDSIDE TESTING (test code 121 MG/DL 70-119 H = GLUBED) GLUCOSE BEDSIDE [id number] 07:43:00 Test Item Value Reference Range Interpretation Comments GLUCOSE BEDSIDE TESTING (test code = 96 MG/DL 70-119 N GLUBED) COMPREHENSIVE METABOLIC [id number] 05:53:00 Test Item Value Reference Range Interpretation Comments SODIUM (test code = 137.0 mmol/L 133-144 N NA) POTASSIUM (test code 3.7 mmol/L 3.5-5.1 N = K) CHLORIDE (test code 106 mmol/L 95-105 H = CL) CARBON DIOXIDE (test 25 mmol/L 21-32 N code = CO2) ANION GAP (test code 6.0 GAP calc 4.0-15.0 N = GAP) GLUCOSE (test code = 98 MG/DL 70-110 N GLU) BLOOD UREA NITROGEN 17 MG/DL 7-18 N (test code = BUN) GLOMERULAR 63 estGFR >60 The estimated FILTRATION RATE glomerular (test code = GFR) filtration rate is computed usingpatient ra ce, age, sex, and s britta creatinine. If any of theneeded da ta elements are mi ssing the Laboratory can notcompute an estimation of t he glomerular filtration rate .The GFR value units = ml/min/1.73 met er squared. EstimatedGFR va lues above 60 should be interpreted as >60, not anexact number.--- DRUG DOSAGE ALERT -- - Drug dosage adjustments uti lize different calculationpara meter s. CREATININE (test 1.42 MG/DL 0.55-1.30 H Results may be code = CREAT) depressed if p atient is takingN-Acetylc ystei ne (NAC) and Metamizole (Dipyrone). TOTAL PROTEIN (test 7.4 G/DL 6.4-8.2 N code = PROT) ALBUMIN (test code = 3.5 G/DL 3.4-5.0 N ALB) ALBUMIN/GLOBULIN 0.9 RATIO 1.2-2.2 L RATIO (test code = A/G) CALCIUM (test code = 8.7 MG/DL 8.5-10.1 N CA) BILIRUBIN TOTAL 0.69 MG/DL 0.00-1.00 N (test code = BILT) BILIRUBIN DIRECT 0.17 MG/DL 0.00-0.30 N (test code = BILD) BILIRUBIN INDIRECT 0.52 MG/DL 0.2-1.3 N (test code = BILIND) SGOT/AST (test code 13 Unit/L 15-37 L = AST) SGPT/ALT (test code 15 Unit/L 12-78 N = ALT) ALKALINE PHOSPHATASE 50 Unit/L 45-117 N TOTAL (test code = ALKP) INDEX HEMOLYSIS 1 NORMAL <10 See_Comment [Automated message] (test code = MG Index/DL The system [employer] HEMINDEX) generated this result transmit breanne reference range : 1 NORMAL. The reference range was not used to interpret this result as normal/abnormal . INDEX ICTERIC (test 1 NORMAL <2 MG See_Comment [Auto mated message] code = ICTINDEX) Index/DL The system which generated this result transmit breanne reference range : 1 NORMAL. The reference range was not used to interpret this result as normal/abnormal . INDEX LIPEMIA (test 1 NORMAL <50 See_Comment [Automa breanne message] code = LIPINDEX) MG Index/DL The system which generated this result transmit breanne reference range : 1 NORMAL. The reference range was not used to interpret this result as normal/abnormal . LIPID PROFILE (CORONARY RISK)2020-11-30 05:53:00 Test Item Value Reference Range Interpretation Comments TRIGLYCERIDES (test 129 MG/DL 0-150 N Results may be code = TRIG) depressed if иван chávez is takingN-Acetylc ystei ne (NAC) and Metamizole (Dipyrone). CHOLESTEROL (test code 178 MG/DL 133-200 N = CHOL) CHOLESTEROL/HDL RATIO 4.45 RATIO See_Comment REFER ENCE RANGE: (test code = CHOLHDL) KIANA NAVARRO FEMALE 1/2 AVG RISK 3.4 3 3.27 AVG RISK 4.9 7 4.44 2 X AVG RISK 9.5 5 7.05 3 X AVG RISK 23.3 9 11.04 [Autom ated message] The sy stem which generated this result transmit breanne reference range : 0-. The reference r marino was not used to interpret this result as normal/abnormal . HDL CHOLESTEROL (test 40 MG/DL 40-59 N Result s maybe code = HDL) depressed if виан chávez is taking Metamizole(Dipy vik) . NON-HDL CHOLESTEROL 138 mg/dL <130 H Patients with CHD or (test code = NHDL) CHD risk LDL: <70 mg/dL non HDL: <100 mg/dLPatie nts with 2+ risk fa ctors LDL: <130 mg/dL nonHDL: <160 mg/dLPatie nts with 0-1 risk factors LDL: <160 mg/dL nonHDL: <190 m g/dL LIPOPROTEIN LDL (test 112 MG/DL 0-129 N code = LDL) LDL/HDL (test code = 2.80 Ratio See_Comment N LDL/HDL RISK LDL/HDL) ASSESSMENT1.47 One-half averag e3.22 Average5.0 3 Two times average6.14 [address] rage [Automated mess age] The system whic h generated this result transmit breanne reference range : 1.48-3.22 Avg. The reference range was not used to interpret this result as normal/abnormal . [id number] 05:53:00 Test Item Value Reference Range Interpretation Comments MAGNESIUM (test code = MAG) 2.2 MG/DL 1.6-2.6 N COMPREHENSIVE METABOLIC [id number] 05:38:00 Test Item Value Reference Range Interpretation Comments SODIUM (test code = 137.0 mmol/L 133-144 N NA) POTASSIUM (test code 3.7 mmol/L 3.5-5.1 N = K) CHLORIDE (test code 106 mmol/L 95-105 H = CL) CARBON DIOXIDE (test mmol/L 21-32 code = CO2) ANION GAP (test code GAP calc 4.0-15.0 = GAP) GLUCOSE (test code = MG/DL 70-110 GLU) BLOOD UREA NITROGEN MG/DL 7-18 (test code = BUN) CREATININE (test MG/DL 0.55-1.30 code = CREAT) TOTAL PROTEIN (test G/DL 6.4-8.2 code = PROT) ALBUMIN (test code = G/DL 3.4-5.0 ALB) ALBUMIN/GLOBULIN RATIO 1.2-2.2 RATIO (test code = A/G) CALCIUM (test code = MG/DL 8.5-10.1 CA) BILIRUBIN TOTAL MG/DL 0.00-1.00 (test code = BILT) BILIRUBIN DIRECT MG/DL 0.00-0.30 (test code = BILD) BILIRUBIN INDIRECT MG/DL 0.2-1.3 (test code = BILIND) SGOT/AST (test code Unit/L 15-37 = AST) SGPT/ALT (test code Unit/L 12-78 = ALT) ALKALINE PHOSPHATASE Unit/L 45-117 TOTAL (test code = ALKP) INDEX HEMOLYSIS 1 NORMAL <10 MG See_Comment [Automat ed (test code = Index/DL message] The sy stem HEMINDEX) which generated this result transmitted reference range : 1 NORMAL. The reference range was not used to interpret this result as normal/abnormal . INDEX ICTERIC (test 1 NORMAL <2 MG See_Comment [Auto mated code = ICTINDEX) Index/DL message] e system which generated this result transmitted reference range : 1 NORMAL. The reference range was not used to interpret this result as normal/abnormal . INDEX LIPEMIA (test 1 NORMAL <50 MG See_Comment [Aut omated code = LIPINDEX) Index/DL message] Th e system which generated this result transmitted reference range : 1 NORMAL. The reference range was not used to interpret this result as normal/abnormal . LIPID PROFILE (CORONARY RISK)2020-11-30 05:38:00 Test Item Value Reference Range Interpretation Comments TRIGLYCERIDES (test code MG/DL 0-150 = TRIG) CHOLESTEROL (test code = MG/DL 133-200 CHOL) CHOLESTEROL/HDL RATIO RATIO See_Comment [Auto mated message] (test code = CHOLHDL) The sy stem which generated this result transmitted ref erence range: 0-. The reference range was not used to int erpret this result as normal/abnormal . HDL CHOLESTEROL (test MG/DL 40-59 code = HDL) NON-HDL CHOLESTEROL (test mg/dL <130 code = NHDL) LIPOPROTEIN LDL (test MG/DL 0-129 code = LDL) LDL/HDL (test code = Ratio See_Comment [Autom ated message] LDL/HDL) The system whic h generated this result transmitted ref erence range: 1.48-3.2 2 Avg. The reference r marino was not used to interpret this result as normal/abnor mal. [id number] 05:38:00 Test Item Value Reference Range Interpretation Comments MAGNESIUM (test code = MAG) MG/DL 1.6-2.6 GLYCOSYLATED HEMOGLOBIN (HA1C)2020-11-30 05:21:00 Test Item Value Reference Range Interpretation Comments GLYCOSYLATED HEMOGLOBIN (HA1C) 5.9 % IS-A1C 4.5-5.6 H (test code = GLYHGB) Specimen comments: use blood sample in the labComments to Gender Studies Professor: use blood sample in the labCBC W/AUTO [id number] 05:12:00 Test Item Value Reference Range Interpretation Comments WHITE BLOOD CELL (test code = 5.0 K/mm3 4.1-12.1 N WBC) RED BLOOD CELL (test code = RBC) 5.35 M/mm3 3.8-5.5 N HEMOGLOBIN (test code = HGB) 13.9 G/DL 10.6-15.8 N HEMATOCRIT (test code = HCT) 43.8 % 31.8-47.4 N MEAN CELL VOLUME (test code = 81.9 fL 80.1-101.1 N MCV) MEAN CELL HGB (test code = MCH) 26.0 pg 25.3-35.3 N MEAN CELL HGB CONCETRATION (test 31.7 G/DL 32.7-35.1 L code = MCHC) RED CELL DISTRIBUTION WIDTH 18.2 % 12.2-16.4 H (test code = RDW) RED CELL DISTRIBUTION WIDTH 53.0 fL 35.1-43.9 H (test code = RDW-SD) PLATELET COUNT (test code = PLT) 229 K/mm3 155-337 N MEAN PLATELET VOLUME (test code 11.2 fL 7.6-10.4 H = MPV) GRANULOCYTE % (test code = GR%) 47.7 % 37.8-82.6 N IMMATURE GRANULOCYTE % (test 0.2 % 0.0-2.0 N code = IG%) LYMPHOCYTE % (test code = LY%) 40.3 % 14.1-45.4 N MONOCYTE % (test code = MO%) 10.0 % 2.5-11.7 N EOSINOPHIL % (test code = EO%) 1.6 % 0.0-6.2 N BASOPHIL % (test code = BA%) 0.2 % 0.0-2.6 N NUCLEATED RBC % (test code = 0.0 /100WBC% 0.0-1.0 N NRBC%) GRANULOCYTE # (test code = GR#) 2.39 k/mm3 2.0-13.7 N IMMATURE GRANULOCYTE # (test 0.01 K/mm3 0.00-0.03 N code = IG#) LYMPHOCYTE # (test code = LY#) 2.02 K/mm3 0.6-3.8 N MONOCYTE # (test code = MO#) 0.50 K/mm3 0.11-0.59 N EOSINOPHIL # (test code = EO#) 0.08 K/mm3 0.0-0.4 N BASOPHIL # (test code = BA#) 0.01 K/mm3 0.0-0.1 N NUCLEATED RBC # (test code = 0.00 K/mm3 0.00-0.05 N NRBC#) [id number] 00:17:00 Test Item Value Reference Range Interpretation Comments CKMB (test code = 1.4 NG/ML 1.0-3.6 N MONOCLONAL CKMB CKMBT) METHODOLOGY. [id number] 00:17:00 Test Item Value Reference Range Interpretation Comments TROPONIN-I 0.025 NG/ML 0.000-0.045 N INTERPRET WITH CAUTION, THIS (test code = VALUE EXCEEDS T HE LOWER TROPI) LIMITOF LINEARI TY VERIFICATION ES TABLISHED BY THE LABORATORY. An elevated troponin value alone is not sufficient todi agnose a myocardial infa rction. Rather, the pat ient'sclinical presentation (h istory, physical exam) and ECGshould be used in conj unction with troponin in the diagnostic evaluation of s uspected myocardial infa rction. Aserial samplin g protocol is recommended to facilitate theidentificati on of temporal changes in trop onin levelscharacter istic of [place]. [id number] 23:57:00 Test Item Value Reference Range Interpretation Comments CKMB (test code = CKMBT) NG/ML 1.0-3.6 [id number] 23:57:00 Test Item Value Reference Range Interpretation Comments TROPONIN-I 0.025 NG/ML 0.000-0.045 N INTERPRET WITH CAUTION, THIS (test code = VALUE EXCEEDS T HE LOWER TROPI) LIMITOF LINEARI TY VERIFICATION ES TABLISHED BY THE LABORATORY. An elevated troponin value alone is not sufficient todi agnose a myocardial infa rction. Rather, the pat ient'sclinical presentation (h istory, physical exam) and ECGshould be used in conj unction with troponin in the diagnostic evaluation of s uspected myocardial infa rction. Aserial samplin g protocol is recommended to facilitate theidentificati on of temporal changes in trop onin levelscharacter istic of [place]. GLUCOSE BEDSIDE [id number] 20:50:00 Test Item Value Reference Range Interpretation Comments GLUCOSE BEDSIDE TESTING (test code 126 MG/DL 70-119 H = GLUBED) [id number] 20:10:00 Test Item Value Reference Range Interpretation Comments CKMB (test code = 1.6 NG/ML 1.0-3.6 N MONOCLONAL CKMB CKMBT) METHODOLOGY. [id number] 20:10:00 Test Item Value Reference Range Interpretation Comments TROPONIN-I 0.026 NG/ML 0.000-0.045 N INTERPRET WITH CAUTION, THIS (test code = VALUE EXCEEDS T HE LOWER TROPI) LIMITOF LINEARI TY VERIFICATION ES TABLISHED BY THE LABORATORY. An elevated troponin value alone is not sufficient todi agnose a myocardial infa rction. Rather, the pat ient'sclinical presentation (h istory, physical exam) and ECGshould be used in conj unction with troponin in the diagnostic evaluation of s uspected myocardial infa rction. Aserial samplin g protocol is recommended to facilitate theidentificati on of temporal changes in trop onin levelscharacter istic of [place]. [id number] 19:57:00 Test Item Value Reference Range Interpretation Comments CKMB (test code = CKMBT) NG/ML 1.0-3.6 [id number] 19:57:00 Test Item Value Reference Range Interpretation Comments TROPONIN-I 0.026 NG/ML 0.000-0.045 N INTERPRET WITH CAUTION, THIS (test code = VALUE EXCEEDS T HE LOWER TROPI) LIMITOF LINEARI TY VERIFICATION ES TABLISHED BY THE LABORATORY. An elevated troponin value alone is not sufficient todi agnose a myocardial infa rction. Rather, the pat ient'sclinical presentation (h istory, physical exam) and ECGshould be used in conj unction with troponin in the diagnostic evaluation of s uspected myocardial infa rction. Aserial samplin g protocol is recommended to facilitate theidentificati on of temporal changes in trop onin levelscharacter istic of [place]. COVID 19 Asymptomatic IH [id number] 18:32:00 Test Item Value Reference Range Interpretation Comments COVID 19 Asymptomatic IH AG (test Negative Neg code = COVNONPUIAG) - CT ANGIO [id number] 17:08:00 [facility] REFUGIO [facility]ICK : 1965 Sex: M Patient Name: WILMER PARADA Unit No: [id number] EXAMS: CPT CODE: [id number] CT ANGIO HEAD 8[address]89 Dictation location: H37. CT ANGIOGRAM OF THE NECK AND HEAD WITH IV CONTRAST; MIP AND 3-D RECONSTRUCTIONS HISTORY: Left sided weakness COMPARISON: None TECHNIQUE: Axial CT images of the neck and head were obtained with coronal and/or sagittal reformatted views. MIP and/or 3-D reconstruction were obtained of the carotid arteries in the neck and grayling of [place]. Automated exposure control, iterative reconstruction technique, and/or adjustment of mA and/or kV according to patient's size was utilized for radiation dose reduction. IV CONTRAST: 100 ml Isovue-370. FINDINGS: Visualized lung apices are clear. The thyroid is mildly prominent. The airway is patent. Small calcifications along both tonsils are likely related to prior infection. The parotid and submandibular glands are unremarkable. There are numerous small lymph nodes seen throughout the neck. Chronic microvascular ischemic changes and atrophy. No midline shift or hydrocephalus. The calvarium and skull base are intact. Left lobe prosthesis. Mild nodular thickening of the ethmoid sinuses. The mastoidair cells are clear. Mild to moderate cervical spondylosis. CTA NECK: Not included. The exam is essentially nondiagnostic with very poor contrast opacification seen in the carotid vessels. No suspected significant carotid bulb stenosis. Extracranial vertebral arteries are not well assessed. CTA HEAD: The intracranial vessels are slightly better opacified visualized. The exam is still very limited. No definite intracranial obstruction or aneurysm. The dural sinuses are not well opacified. IMPRESSION: Very limited exam due to poor timing of the contrast bolus. The CT portion of the neck is essentially nondiagnostic. Probably no significant carotid stenosis. CTA head is limited. No definite occlusion or aneurysm. [facility] Pedro Pablo NAME: WILMER PARADA [address] [place] [address] PHYS: ARVIN NickolasJake, [place] [address] : 1965 AGE: 54 SEX: M LOC: LISA PHONE #: [phone] EXAM DATE: 11/29/2020 STATUS: REG ER FAX #: [phone] RAD #: D/C DT PAGE 1 Signed Report (CONTINUED) Patient Name: WILMER PARADA Unit No: [id number] EXAMS: CPT CODE: [id number] CT ANGIO HEAD [address] <Continued> at 1708 Reported and signed by: Uriah Moran MD CC: Jake Olmos DO Dictated Date/Time: 11/29/2020 (1707) Technologist: Luisana Mederos CTDI: 73.04 DLP: 4.21 Trnscrpt: 11/29/2020 (1707) [email or web address] EMILY Rao NAME: [address] PHYS: ARVIN.Dinesh - NickolasJakemickey [place] [address] : 1965 AGE: 54 SEX: M LOC: B.ERS PHONE #: [phone] EXAM DATE: 11/29/2020 STATUS: REG ER FAX #: [phone] RAD #: D/C DT PAGE 2 Signed Report Patient Name: WILMER PARADA Unit No: [id number] EXAMS: CPT CODE: [id number] CT ANGIO HEAD [address] <Continued> Orig Print D/T: S: 11/29/2020 (1711) EVERNoreen Como NAME: [address] PHYS: ARVIN.Dinesh - NickolasJake Irena [place] [address] : 1965 AGE: 54 SEX: M LOC: B.ERS PHONE #: [phone] EXAM DATE: 11/29/2020 STATUS: REG ER FAX #: [phone] RAD #: D/C DT PAGE 3 Signed Report- CT ANGIO [id number] 17:08:00 [facility] : 1965 Sex: M Patient Name: WILMER PARADA Unit No: [id number] EXAMS: CPT CODE: [id number] CT ANGIO NECK [address]191 Dictation location: H37. CT ANGIOGRAM OF THE NECK AND HEAD WITH IV CONTRAST; MIP AND 3-D RECONSTRUCTIONS HISTORY: Left sided weakness COMPARISON: None TECHNIQUE: Axial CT images of the neck and head were obtained with coronal and/or sagittal reformatted views. MIP and/or 3-D reconstruction were obtained of the carotid arteries in the neck and grayling of [place]. Automated exposure control, iterative reconstruction technique, and/or adjustment of mA and/or kV according to patient's size was utilized for radiation dose reduction. IV CONTRAST: 100 ml Isovue-370. FINDINGS: Visualized lung apices are clear. The thyroid is mildly prominent. The airway is patent. Small calcifications along both tonsils are likely related to prior infection. The parotid and submandibular glands are unremarkable. There are numerous small lymph nodes seen throughout the neck. Chronic microvascular ischemic changes and atrophy. No midline shift or hydrocephalus. The calvarium and skull base are intact. Left lobe prosthesis. Mild nodular thickening of the ethmoid sinuses. The mastoidair cells are clear. Mild to moderate cervical spondylosis. CTA NECK: Not included. The exam is essentially nondiagnostic with very poor contrast opacification seen in the carotid vessels. No suspected significant carotid bulb stenosis. Extracranial vertebral arteries are not well assessed. CTA HEAD: The intracranial vessels are slightly better opacified visualized. The exam is still very limited. No definite intracranial obstruction or aneurysm. The dural sinuses are not well opacified. IMPRESSION: Very limited exam due to poor timing of the contrast bolus. The CT portion of the neck is essentially nondiagnostic. Probably no significant carotid stenosis. CTA head is limited. No definite occlusion or aneurysm. HCAH Como NAME: [address] PHYS: ARVIN.Dinesh - Jake Olmos, [place] [address] : 1965 AGE: 54 SEX: M LOC: AleshiaERS PHONE #: [phone] EXAM DATE: 11/29/2020 STATUS: REG ER FAX #: [phone] RAD #: D/C DT PAGE 1 Signed Report (CONTINUED) Patient Name: WILMER PARADA Unit No: [id number] EXAMS: CPT CODE: [id number] CT ANGIO NECK [address]8848 <Continued> at 1708 Reported and signed by: Uriah Moran MD CC: Jake Olmos DO Dictated Date/Time: 11/29/2020 (1708) Technologist: Luisana Mederos CTDI: 0 DLP: 0 Trnscrpt: 11/29/2020 (1708) [email or web address] EMILY Rao NAME: [address] PHYS: ARVIN.Dinesh - Jake Olmos, [place] [address] : 1965 AGE: 54 SEX: M LOC: Coy.ERS PHONE #: [phone] EXAM DATE: 11/29/2020 STATUS: REG ER FAX #: [phone] RAD #: D/C DT PAGE 2 Signed Report Patient Name: WILMER PARADA Unit No: [id number] EXAMS: CPT CODE: [id number] CT ANGIO NECK [address]148 <Continued> Orig Print D/T: S: 11/29/2020 (1711) EMILY Rao NAME: [address] PHYS: Jake Benjamin, [place] [address] : 1965 AGE: 54 SEX: M LOC: B.ERS PHONE #: [phone] EXAM DATE: 11/29/2020 STATUS: REG ER FAX #: [phone] RAD #: D/C DT PAGE 3 Signed Report- XR CHEST 1 [id number] 11:48:00 [facility] : 1965 Sex: M Name: [facility] : 1965 Age/S: 54 / M [id number] [address] Unit #: [id number] Loc: [place] [address] Phys: Maximino Ham MD Acct: [id number] Dis Date: Status: REG ER PHONE #: [phone] Exam Date: 11/29/2020 1108 FAX #: Reason: chest pain, stroke symptoms EXAMS: CPT: [id number] XR CHEST 1 V 36745 Fluoro Time: DAP (Gy m2): Air Kerma (mGy): EXAMINATION: - XR CHEST 1 V. LOCATION: S17. HISTORY: chest pain, weakness, stroke symptoms. COMPARISON: Chest CT 11/29/20. FINDINGS: Examination is limited due to portable technique and low lung volumes. Cardiac silhouette/Mediastinal contour: Enlargement of cardiac silhouette. Atherosclerotic calcification of aortic arch. Left chest AICD. Lungs: No focal consolidation. No large pleural effusion. Osseous Structures: Mild degenerative changes affect thoracic spine. IMPRESSION: No focal consolidation. at 1148 Reported and signed by: Victor Manuel Jane M.D. CC: Maximino Ham MD PAGE 1 Signed Report Name: [facility] : 1965 Age/S: 54 / M [id number] [address] Unit #: [id number] Loc: [place] [address] Phys: Maximino Ham MD Acct: [id number] Dis Date: Status: REG ER PHONE #: [phone] Exam Date: 11/29/2020 1108 FAX #: Reason: chest pain, stroke symptoms EXAMS: CPT: [id number] XR CHEST 1 V 49851 Fluoro Time: DAP (Gy m2): Air Kerma (mGy): <Continued> Technologist: Bandar Tirado RT(R)(CT) Trnscb Date/Time: 11/29/2020 (1148) t.[email or web address] Orig Print D/T: S: 11/29/2020 (7301) PAGE 2 Signed Report- CT ABD PELVIS W/[id number] 11:20:00 [facility] : 1965 Sex: M Name: [facility] : 1965 Age/S: 54 / M [id number] [address] Unit #: [id number] Loc: [place] [address] Phys: Maximino Ham MD Acct: [id number] Dis Date: Status: REG ER PHONE #: [phone] Exam Date: 11/29/2020 1046 FAX #: Reason: rule out dissection EXAMS: CPT: [id number] CT ABD PELVIS W/CONT 07501 LOCATION: T18 EXAM: CT CHEST WITH CONTRAST EXAM: CT ABDOMEN AND PELVIS WITH CONTRAST INDICATION: Chest pain and weakness, left-sided weakness, rule out dissection COMPARISON: Chest x-ray November 29, 2020 at 0934 hours. TECHNIQUE: Helically acquired axial CT images of the chest, abdomen, and pelvis were obtained. 100 ml of Isovue 300 was given intravenously. Up-to-date CT equipment and radiation dose reduction techniques were utilized. Automatic exposure control was utilized. FINDINGS: Left AICD inplace. The heart is mildly enlarged. No pericardial effusion is seen. No aortic d issection or aneurysm is identified. No mediastinal or hilar adenopathy is seen.The trachea and main bronchi are patent. Tiny areas of peripheral subsegmental atelectasis in the left upper lobe noted. Lungs are otherwise clear. Liver and spleen are normalin appearance. Adrenal glands and pancreas normal. Gallbladder is unremarkable. No bladder distention. Portal vasculature is patent. Kidneys enhance symmetrically. No focal abnormality or hydronephrosis is seen. There is no hydroureter. Urinary bladder is normal in appearance. Diverticulosis throughout the sigmoid colon without evidence of acute radiculitis. Additional scattered diverticula of the left colon. Abdominal aorta is normal in caliber. No aortic dissection or aneurysm. The bones and peripheral soft tissues are unremarkable. IMPRESSION: No aortic dissection or aneurysm. Mild cardiomegaly. PAGE 1 Signed Report (CONTINUED) Name: WILMER PARADA [facility] : 1965 Age/S: 54 / M [id number] [address] Unit #: [id number] Loc: [place] [address] Phys: Maximino Ham MD Acct: [id number] Dis Date: Status: REG ER PHONE #: [phone] Exam Date: 11/29/2020 1046 FAX #: Reason: rule out dissection EXAMS: CPT: [id number] CT ABD PELVIS W/CONT 14862 <Continued> at 1120 Reported and signed by: Bill Lake M.D. CC: Maximino Ham MD Technologist:Gala Menard, RT(R); Nikole CTDI: DLP: Trnscb Date/Time: 11/29/2020 (1120) [email or web address] Orig Print D/T: S: 11/29/2020 (1123) PAGE 2 Signed Report- CT CHEST W/CONTRAST 2020-11-29 11:20:00 [facility] 1965 Sex: M Name: [facility] : 1965 Age/S: 54 / M [id number] [address] Unit #: [id number] Loc: [place] [address] Phys: Maximino Ham MD Acct: [id number] Dis Date: Status: REG ER PHONE #: [phone] Exam Date: 11/29/2020 1051 FAX #: Reason: rule out dissection EXAMS: CPT: [id number] CT CHEST W/CONTRAST 245[address] LOCATION: T18 EXAM: CT CHEST WITH CONTRAST EXAM: CT ABDOMEN AND PELVIS WITH CONTRAST INDICATION: Chest pain and weakness, left-sided weakness, rule out dissection COMPARISON: Chest x-ray November 29, 2020 at 0934 hours. TECHNIQUE: Helically acquired axial CT images of the chest, abdomen, and pelvis were obtained. 100 ml of Isovue 300 was given intravenously. Up-to-date CT equipment and radiation dose reduction techniques were utilized. Automatic exposure control was utilized. FINDINGS: Left AICD inplace. The heart is mildly enlarged. No pericardial effusion is seen. No aortic d issection or aneurysm is identified. No mediastinal or hilar adenopathy is seen.The trachea and main bronchi are patent. Tiny areas of peripheral subsegmental atelectasis in the left upper lobe noted. Lungs are otherwise clear. Liver and spleen are normalin appearance. Adrenal glands and pancreas normal. Gallbladder is unremarkable. No bladder distention. Portal vasculature is patent. Kidneys enhance symmetrically. No focal abnormality or hydronephrosis is seen. There is no hydroureter. Urinary bladder is normal in appearance. Diverticulosis throughout the sigmoid colon without evidence of acute radiculitis. Additional scattered diverticula of the left colon. Abdominal aorta is normal in caliber. No aortic dissection or aneurysm. The bones and peripheral soft tissues are unremarkable. IMPRESSION: No aortic dissection or aneurysm. Mild cardiomegaly. PAGE 1 Signed Report (CONTINUED) Name: [facility] : 1965 Age/S: 54 / M [address] Unit #: [id number] Loc: [place] [address] Phys: Maximino Ham MD Acct: [id number] Dis Date: Status: REG ER PHONE #: [phone] Exam Date: 11/29/2020 1056 FAX #: Reason: rule out dissection EXAMS: CPT: [id number] CT CHEST W/CONTRAST [id number] <Continued> at 1120 Reported and signed by: Bill Lake M.D. CC: Maximino Ham MD Technologist:Gala Menard, RT(R); Nikole CTDI: DLP: Trnscb Date/Time: 11/29/2020 (1120) [email or web address] Orig Print D/T: S: 11/29/2020 (1123) PAGE 2 Signed Report- CT HEAD/BRAIN W/O CONT 2020-11-29 11:15:00 [facility] 1965 Sex: M Name: WILMER PARADA : 1965 Age/S: 54 / M [id number] [address] Unit #: [id number] Loc: [place] [address] Phys: Maximino Ham MD Acct: [id number] Dis Date: Status: REG ER PHONE #: [phone] Exam Date: 11/29/2020 1045 FAX #: Reason: CVA symptoms EXAMS: CPT: [id number] CT HEAD/BRAIN W/O CONT [id number] EX AM: - CT HEAD/BRAIN W/O CONT INDICATION: CVA symptoms LOCATION: T18 COMPARISON: None available time of interpretation. TECHNIQUE: Axial tomograms through the brain were obtained without intravenous contrast. Coronal and sagittal reformatted images are provided. All CT scans are performed using radiation dose reduction technique. Technical factors are evaluated and adjusted to insure appropriate moderation of exposure. Automated dose management technology is applied to adjust the radiation dose to minimize exposure while achieving a diagnostic quality image. FINDINGS: Intra-axial and extra-axial structures: No CT evidence of acute territorial infarct, or intracranial hemorrhage seen. No mass effect, midline shift or hydrocephalus seen. Bones and soft tissues:Appear unremarkable. Paranasal sinuses, and mastoid air cells: Appear clear. Orbits: Left globe prosthesis seen. IMPRESSION: No acute intracranial process seen. at 1115 Reported and signed by: Cipriano Norton M.D. CC: Maximino Ham MD Technologist:Nikole Rider, RT(R) CTDI: DLP: Trnscb Date/Time: 11/29/2020 (1115) [email or web address] Orig Print D/T: S: 11/29/2020 (1118) PAGE 1 Signed ReportCOMPREHENSIVE METABOLIC [id number] 10:03:00 Test Item Value Reference Range Interpretation Comments SODIUM (test code = NA) 141 mmol/L 134-147 N POTASSIUM (test code = K) 4.0 mmol/L 3.4-5.0 N CHLORIDE (test code = CL) 107 mmol/L 100-108 N CARBON DIOXIDE (test code = CO2) 29 mmol/L 21-32 N ANION GAP (test code = GAP) 5.0 GAP calc 4.0-15.0 N GLUCOSE (test code = GLU) 101 MG/DL 70-110 N BLOOD UREA NITROGEN (test code = 17 MG/DL 7-18 N BUN) GLOMERULAR FILTRATION RATE (test 59 estGFR >60 L code = GFR) CREATININE (test code = CREAT) 1.6 MG/DL 0.8-1.3 H TOTAL PROTEIN (test code = PROT) 7.8 G/DL 6.4-8.2 N ALBUMIN (test code = ALB) 3.6 G/DL 3.4-5.0 N GLOBULIN (test code = GLOB) 4.2 GM/dL ALBUMIN/GLOBULIN RATIO (test 0.9 RATIO 1.2-2.2 L code = A/G) CALCIUM (test code = CA) 8.8 MG/DL 8.5-10.1 N BILIRUBIN TOTAL (test code = 0.70 MG/DL 0.2-1.2 N BILT) SGOT/AST (test code = AST) 15 Unit/L 15-37 N SGPT/ALT (test code = ALT) 15 Unit/L 12-78 N ALKALINE PHOSPHATASE TOTAL (test 65 Unit/L 50-136 N code = ALKP) Completed by Nursing: [id number] 10:03:00 Test Item Value Reference Range Interpretation Comments TROPONIN-I (test 0.021 NG/ML 0.000-0.045 N Negative: < /= 0.045 code = TROPI) Positive: >/= 0.046 Correlation wit h serial results, other cardiac markers, and cl inical findings is nec essary to determine the c linical significance of this result. Quantit ative results using d ifferent methodologies s hould not be compared to one another as nume rical results may suzy yby method. Completed by Nursing: NOCBC W/AUTO [id number] 09:45:00 Test Item Value Reference Range Interpretation Comments WHITE BLOOD CELL (test code = 5.4 K/mm3 3.5-11.0 N WBC) RED BLOOD CELL (test code = 5.95 M/mm3 4.70-6.10 N RBC) HEMOGLOBIN (test code = HGB) 15.0 G/DL 12.3-15.9 N HEMATOCRIT (test code = HCT) 48.1 % 35.8-46.7 H MEAN CELL VOLUME (test code = 80.8 Fl 86.3-98.9 L MCV) MEAN CELL HGB (test code = MCH) 25.2 pg 28.9-34.4 L MEAN CELL HGB CONCETRATION 31.2 G/DL 32.1-34.5 L (test code = MCHC) RED CELL DISTRIBUTION WIDTH 18.6 SD 11.5-14.5 H (test code = RDW) PLATELET COUNT (test code = 255 K/mm3 150-450 N PLT) MEAN PLATELET VOLUME (test code 10.30 fL 7.0-9.6 H = MPV) NEUTROPHIL % (test code = NT%) 44.7 % 40-76 N IMMATURE GRANULOCYTE % (test 0.0 % 0.0-5.0 N code = IG%) LYMPHOCYTE % (test code = LY%) 42.5 % 20.5-51.1 N MONOCYTE % (test code = MO%) 10.3 % 1.7-9.3 H EOSINOPHIL % (test code = EO%) 2.1 % 0.0-6.0 N BASOPHIL % (test code = BA%) 0.4 % 0.0-2.0 N NUCLEATED RBC % (test code = 0.0 /100WBC% 0.0-1.0 N NRBC%) NEUTROPHIL # (test code = NT#) 2.4 K/mm3 1.8-7.6 N IMMATURE GRANULOCYTE # (test 0.00 x10 3/uL 0.00-0.03 N code = IG#) LYMPHOCYTE # (test code = LY#) 2.3 K/mm3 0.6-3.0 N MONOCYTE # (test code = MO#) 0.6 K/mm3 0.2-1.5 N EOSINOPHIL # (test code = EO#) 0.1 K/mm3 0.0-0.4 N BASOPHIL # (test code = BA#) 0.0 K/mm3 0.0-0.2 N NUCLEATED RBC # (test code = 0.0 K/mm3 0.00-0.01 N NRBC#) MANUAL DIFF REQUIRED (test code NO DIFF/SCN CRITERIA = MDIFF)
[2021-03-11] MEDS ORDERED: FUROSEMIDE 40 MG/4 ML VIAL ONE ×3 (13:08→14:32)
[2021-03-11 13:10] LABS: Hematocrit 46.4 % (39.6-49.0); Lymphocytes % 37.3 % (15.3-44.8); Protime INR 1.08; RBC Red Blood Cell Count 5.84 M/uL (4.33-5.43)
[2021-03-11 13:31] LABS: Magnesium 2.2 mg/dL (1.8-2.4); Potassium 4.4 mmol/L (3.5-5.1); Troponin (Emerg Dept Use Only) 0.02 ng/mL (0.0-0.045)
--- NOTE | 2021-03-11 13:33 | RAD REPORT ---
EXAM DESCRIPTION: RAD - Chest Single View - 03/11/2021 1:28 pm CLINICAL HISTORY: Chest pain;Dyspnea COMPARISON: Chest Single View dated 11/16/2018; Chest Single View dated 02/18/2018; Chest Single View dated 12/27/2017; Chest Single View dated 01/27/2017 FINDINGS: No evidence of edema or pneumonia. Cardiomegaly. Pacemaker.No acute osseous abnormality. N o significant pleural effusions or pneumothorax. IMPRESSION: No acute cardiopulmonary disease.
--- NOTE | 2021-03-11 14:13 | EDPHYS ---
Physician Documentation [facility] Name: Bryan Watts Age: 55 yrs Sex: Male : 1965 Arrival Date: 03/11/2021 Time: 10:45 Bed 24 Private MD: Jenn Jones ED Physician Ronald Rouse HPI: 03/11 12:39 This 55 yrs old Black Male presents to ER via Wheelchair with complaints of Chest Pain, rn Shortness Of Breath. 12:39 The patient has shortness of breath at rest, with light activity, that woke him/her rn from sleep. Onset: The symptoms/episode began/occurred last night. Duration: The symptoms are intermittent. The patient's shortness of breath is aggravated by supine position, talking, is alleviated by nothing. Associated signs and symptoms: Pertinent positives: non-productive cough, Pertinent negatives: fever, hemoptysis, loss of consciousness. Severity of symptoms: At their worst the symptoms were mild in the emergency department the symptoms are unchanged. The patient has experienced similar episodes in the past. The patient has not recently seen a physician. Reports last night began with shortness of breath, worse when lying flat, had to sleep sitting up. Reports compliant with diuretics. No fever. Positive for dry cough. Also reports chest pain that began around the same time, intermittent, last for seconds.. Historical: - Home Meds: 12:26 amlodipine 10 mg tab 1 tab once daily [Active]; atorvastatin 80 mg Oral tab 1 tab once zb daily [Active]; carvedilol 25 mg Oral tab 1 tab 2 times per day [Active]; hydralazine 100 mg Oral tab 1 tab 4 times per day [Active]; lisinopril 20 mg Oral tab 1 tab twice a day [Active]; - PMHx: 12:26 Diabetes - IDDM; Diabetes - NIDDM; Hyperlipidemia; Hypertension; zb - PSHx: 12:26 pace maker; zb - Immunization history:: Adult Immunizations up to date, Client reports having NOT received the Covid vaccine. - Social history:: Smoking status: Patient denies any tobacco usage or history of. - Family history:: not pertinent. - Hospitalizations: : No recent hospitalization is reported. ROS: 12:39 Constitutional: Negative for fever, chills, and weight loss, Eyes: Negative for injury, rn pain, redness, and discharge, Neck: Negative for injury, pain, and swelling, Cardiovascular: Negative for palpitations, and edema, Respiratory: Negative for wheezing, positive for mild shortness of breath Abdomen/GI: Negative for abdominal pain, nausea, vomiting, diarrhea, and constipation, Back: Negative for injury and pain, MS/Extremity: Negative for injury and deformity, Skin: Negative for injury, rash, and discoloration, Neuro: Negative for headache, weakness, numbness, tingling, and seizure. 12:39 All other systems are negative. Exam: 12:39 Constitutional: This is a well developed, well nourished patient who is awake, alert, rn and in no acute distress. Head/Face: Normocephalic, atraumatic. Eyes: Pupils equal round and reactive to light, extra-ocular motions intact. Lids and lashes normal. Conjunctiva and sclera are non-icteric and not injected. Cornea within normal limits. Periorbital areas with no swelling, redness, or edema. ENT: No stridor Cardiovascular: Regular rate and rhythm. No pulse deficits. Respiratory: Mild tachypnea, no retractions Abdomen/GI: Soft, non-tender Skin: Warm, dry MS/ Extremity: Pulses equal, no cyanosis. Neuro: Awake and alert, GCS 15 12:39 ECG was reviewed by the Attending Physician. Vital Signs: 12:24 BP 150 / 119; Pulse 89; Resp 19; Temp 98.1(O); Pulse Ox 100% on R/A; Weight 101.15 kg; zb Height 6 ft. 2 in. (187.96 cm); Pain 10/10; 13:18 BP 148 / 115; Pulse 82; Resp 16; Pulse Ox 99% on R/A; zb 14:20 BP 155 / 116; Pulse 88; Resp 16; Pulse Ox 99% on R/A; zb 12:24 Body Mass Index 28.63 (101.15 kg, 187.96 cm) zb MDM: 12:05 Patient medically screened. rn 13:08 Data interpreted: monitoring engineer: rate is 89 beats/min, rhythm is paced rhythm with no rn ectopy, Interpretation: paced, Pulse oximetry: on room air is 100 %. Interpretation: normal. 14:10 Differential diagnosis: CHF exacerbation, Myocardial Infarction pulmonary edema. Data rn reviewed: vital signs, nurses notes, lab test result(s), EKG, radiologic studies, plain films, and as a result, I will discharge patient. Test interpretation: by ED physician or midlevel provider: ECG, plain radiologic studies, X-ray negative for pneumonia/pneumothorax/pulmonary edema.. Counseling: I had a detailed discussion with the patient and/or guardian regarding: the historical points, exam findings, and any diagnostic results supporting the discharge/admit diagnosis, the presence of at least one elevated blood pressure reading (>120/80) during this emergency department visit, lab results, radiology results, the need for outpatient follow up, to return to the emergency department if symptoms worsen or persist or if there are any questions or concerns that arise at home. Response to treatment: the patient's symptoms have mildly improved after treatment, and as a result, I will discharge patient. Special discussion: I discussed with the patient/guardian in detail that at this point there is no indication for admission to the hospital. It is understood, however, that if the symptoms persist or worsen the patient needs to return immediately for re-evaluation. Based on the history and exam findings, there is no indication for further emergent testing or inpatient evaluation. I discussed with the patient/guardian the need to see the spray unit feeder for further evaluation of the symptoms. I discussed with the patient/guardian the need to see the primary care provider for further evaluation of the symptoms. ED course: Chest x-ray without gross pulmonary edema, elevated BNP, normal troponin, ECG without ischemia. Given 100 mg of Lasix here with some improvement, will DC home with doubling of his Lasix for the next 3 days. Return precautions given and understood.. 03/11 12:12 Order name: Basic Metabolic Panel; Complete Time: 13:37 rn 03/11 12:12 Order name: CBC with Diff; Complete Time: 13:29 rn 03/11 12:12 Order name: Magnesium; Complete Time: 13:37 rn 03/11 12:12 Order name: NT PRO-BNP; Complete Time: 13:37 rn 03/11 12:12 Order name: PT-INR; Complete Time: 13:29 rn 03/11 12:12 Order name: Troponin (emerg Dept Use Only); Complete Time: 13:37 rn 03/11 12:12 Order name: XRAY Chest (1 view); Complete Time: 13:37 rn 03/11 12:12 Order name: EKG; Complete Time: 12:13 rn 03/11 12:12 Order name: Cardiac monitoring; Complete Time: 13:16 rn 03/11 12:12 Order name: EKG - Nurse/Tech; Complete Time: 13:16 rn 03/11 12:12 Order name: IV Saline Lock; Complete Time: 13:16 rn 03/11 12:12 Order name: Labs collected and sent; Complete Time: 13:16 rn 03/11 12:12 Order name: O2 Per Protocol; Complete Time: 13:16 rn 03/11 12:12 Order name: O2 Sat Monitoring; Complete Time: 13:16 rn EC:39 Rate is 86 beats/min. Rhythm is regular. QRS interval is prolonged at 172 msec. QT rn interval is normal. No Q waves. T waves are Normal. No ST changes noted. Clinical impression: Paced rhythm. Interpreted by me. Reviewed by me. Administered Medications: 13:28 Drug: Lasix (furosemide) 60 mg Route: IVP; Site: right antecubital; zb 14:20 Follow up: Response: No adverse reaction zb 14:20 Drug: Lasix (furosemide) 40 mg Route: IVP; Site: right antecubital; zb 14:30 Follow up: Response: No adverse reaction zb 14:30 Drug: Ketorolac 15 mg Route: IVP; Site: right antecubital; zb 14:43 Follow up: Response: No adverse reaction; Pain is decreased zb Disposition Summary: 03/11/21 14:12 Discharge Ordered Location: Home rn Problem: an acute exacerbation rn Symptoms: have improved rn Condition: Stable rn Diagnosis - Unspecified combined systolic (congestive) and diastolic (congestive) heart failure rn - Chest pain, unspecified rn Followup: rn - With: Private Physician - When: 2 - 3 days - Reason: Recheck today's complaints, Re-evaluation by your physician Discharge Instructions: - Discharge Summary Sheet rn - Nonspecific Chest Pain, Adult rn - Hypertension, Adult rn - Heart Failure Exacerbation rn Forms: - Medication Reconciliation Form rn - Thank You Letter rn - Antibiotic harness cleaner - Prescription Opioid Use rn Signatures: Dispatcher [employer] EDMS Ronald Rouse MD MD rn Brown, Zipporah, RN RN zb
--- NOTE | 2021-03-11 14:13 | ER ---
Nurse's Notes [facility] Name: Bryan Watts Age: 55 yrs Sex: Male : 1965 Arrival Date: 03/11/2021 Time: 10:45 Bed 24 Private MD: Jenn Jones Diagnosis: Unspecified combined systolic (congestive) and diastolic (congestive) heart failure;Chest pain, unspecified Presentation: 03/11 12:24 Chief complaint: Patient states: Chest pain started last night and SOB started last zb night. rates pain 10/10. alleviated by position changing. history of CHF. Coronavirus screen: Client presents with at least one sign or symptom that may indicate coronavirus-19. Standard/surgical mask placed on the client. Provider contacted for isolation considerations. Ebola Screen: No symptoms or risks identified at this time. Initial Sepsis Screen: Does the patient meet any 2 criteria? No. Patient's initial sepsis screen is negative. Does the patient have a suspected source of infection? No. Patient's initial sepsis screen is negative. Risk Assessment: Do you want to hurt yourself or someone else? Patient reports no desire to harm self or others. Onset of symptoms was March 10, 2021. 12:24 Acuity: GABBY 3 zb 12:24 Method Of Arrival: Wheelchair zb Triage Assessment: 12:30 General: Appears in no apparent distress. comfortable, Behavior is cooperative, zb anxious. Pain: Complains of pain in mid-sternal area Pain does not radiate. Pain currently is 10 out of 10 on a pain scale. Quality of pain is described as sharp, Pain began 1 day ago. Is continuous, Alleviated by repositioning. Neuro: Level of Consciousness is awake, alert, obeys commands, Oriented to person, place, time, situation, Manager Database Administration are equal bilaterally Moves all extremities. Full function. Cardiovascular: Capillary refill < 3 seconds in bilateral fingers Patient's skin is warm and dry. Respiratory: Reports shortness of breath at rest cough that is dry, hacking, Airway is patent Respiratory effort is even, unlabored, Respiratory pattern is regular, symmetrical, Breath sounds are diminished bilaterally. the patient has mild shortness of breath. Derm: Skin is intact, is healthy with good turgor, Skin is normal. Musculoskeletal: Range of motion: intact in all extremities. Historical: - Home Meds: 12:26 amlodipine 10 mg tab 1 tab once daily [Active]; atorvastatin 80 mg Oral tab 1 tab once zb daily [Active]; carvedilol 25 mg Oral tab 1 tab 2 times per day [Active]; hydralazine 100 mg Oral tab 1 tab 4 times per day [Active]; lisinopril 20 mg Oral tab 1 tab twice a day [Active]; - PMHx: 12:26 Diabetes - IDDM; Diabetes - NIDDM; Hyperlipidemia; Hypertension; zb - PSHx: 12:26 pace maker; zb - Immunization history:: Adult Immunizations up to date, Client reports having NOT received the Covid vaccine. - Social history:: Smoking status: Patient denies any tobacco usage or history of. - Family history:: not pertinent. - Hospitalizations: : No recent hospitalization is reported. Screenin:18 Abuse screen: Denies threats or abuse. Denies injuries from another. Nutritional zb screening: No deficits noted. Tuberculosis screening: No symptoms or risk factors identified. Fall Risk None identified. Assessment: 14:21 Reassessment: Patient appears in no apparent distress at this time. Patient and/or zb family updated on plan of care and expected duration. Pain level reassessed. Patient is alert, oriented x 3, equal unlabored respirations, skin warm/dry/pink. patient c/o chest pain still notified ecp . medication ordered. 14:44 Reassessment: patient ambulated out. no c/o at this time. pain decreased. zb Vital Signs: 12:24 BP 150 / 119; Pulse 89; Resp 19; Temp 98.1(O); Pulse Ox 100% on R/A; Weight 101.15 kg; zb Height 6 ft. 2 in. (187.96 cm); Pain 10/10; 13:18 BP 148 / 115; Pulse 82; Resp 16; Pulse Ox 99% on R/A; zb 14:20 BP 155 / 116; Pulse 88; Resp 16; Pulse Ox 99% on R/A; zb 12:24 Body Mass Index 28.63 (101.15 kg, 187.96 cm) zb ED Course: 10:45 Patient arrived in ED. mr 10:45 Jenn Jones is Private Physician. mr 12:04 Taylor De Jesus, SAMUEL is Primary Nurse. zb 12:05 Ronald Rouse MD is Attending Physician. rn 12:26 Triage completed. zb 13:19 Arm band placed on. zb 13:19 Patient has correct armband on for positive identification. clinical research monitor on. Pulse zb ox on. NIBP on. 13:19 Initial lab(s) drawn, by me, sent to lab. EKG done, by ED staff, reviewed by Ronald Rouse MD. Inserted saline lock: 20 gauge in right antecubital area, using aseptic technique. Blood collected. Patient maintains SpO2 saturation greater than 95% on room air. 13:28 XRAY Chest (1 view) In Process Unspecified. EDMS 14:44 No provider procedures requiring assistance completed. IV discontinued, intact, zb bleeding controlled, No redness/swelling at site. Pressure dressing applied. Administered Medications: 13:28 Drug: Lasix (furosemide) 60 mg Route: IVP; Site: right antecubital; zb 14:20 Follow up: Response: No adverse reaction zb 14:20 Drug: Lasix (furosemide) 40 mg Route: IVP; Site: right antecubital; zb 14:30 Follow up: Response: No adverse reaction zb 14:30 Drug: Ketorolac 15 mg Route: IVP; Site: right antecubital; zb 14:43 Follow up: Response: No adverse reaction; Pain is decreased zb Output: 14:30 Urine: 1400ml (Voided); Total: 1400ml. zb Outcome: 14:12 Discharge ordered by . rn 14:44 Discharged to home ambulatory. zb 14:44 Condition: stable 14:44 Discharge instructions given to patient, Instructed on discharge instructions, follow up and referral plans. Demonstrated understanding of instructions, follow-up care. 14:44 Patient left the ED. zb Signatures: Dispatcher [employer] EDHI Ludy Bowie Ronald Rouse MD MD rn Brown, SAMUEL Vazquez RN zlee Corrections: (The following items were deleted from the chart) 14:31 14:21 Reassessment: patient c/o chest pain still notified ecp . zb zb
[2021-03-11] MEDS ORDERED: KETOROLAC 30 MG/ML INJ ONE (14:50)
[2021-03-11 15:14] VITALS: TEMP 98.1
[2021-03-11 15:15] VITALS: O2SAT 99
[2021-03-11 15:18] VITALS: BP 155/116
--- NOTE | 2021-03-12 07:58 | EKG ---
Test Date: 2021-03-11 Test Time: 12:12:35 Reeling Operator: BIMAL MEASUREMENT RESULTS: Intervals: Rate: 86 ND: 154 QRSD: 172 QT: 500 QTc: 598 Sasabe: P: 71 ND: 154 QRS: -47 T: 82 INTERPRETIVE STATEMENTS: Atrial-sensed ventricular-paced rhythm Abnormal ECG Compared to ECG 11/17/2018 21:17:14 Sinus rhythm no longer present First degree AV block no longer present Left-axis deviation no longer present Incomplete right bundle-branch block no longer present Electronically Signed On 03-12-21 07:56:09 CDT by Silviano Grimes
== END 2021-03-11 14:44 | disposition home or self-care (01) ==
LOC: ER 10:43
DX: I50.40 Unspecified combined systolic (congestive) and diastolic (congestive) heart failure (principal); I10 Essential (primary) hypertension; E11.9 Type 2 diabetes mellitus without complications; Z95.0 Presence of cardiac pacemaker
CPT/HCPCS: 93005; 85025; 80048; 36415; 83735; 85610; 84484; 83880; 71045; 96375; 96374; 99285; J1940 ×3

== ENCOUNTER 2021-04-12 18:22 | Inpatient (IN) | payer OTHER ==
--- OUTSIDE RECORDS SUMMARY | 2021-04-12 18:28 | XMS REPORT | Continuity of Care Document ---
:1965 Author Organization [facility] t Address [address] [place] [address] Care Team Providers Name Role Phone Robert BOYER, A Primary Care Physician Robert BOYER, A Attending Clinician Heather BOYER, C Attending Clinician [phone] Yessica, Orlin Attending Clinician Unavailable Rolo BAKER, B Attending Clinician Unavailable Dariel BOYER, Gene Attending Clinician Rosalia BOYER, S Attending Clinician Artemio PERESSW, L Attending Clinician Kathia Attending Clinician Unavailable Nasim Attending Clinician Unavailable Tyler Attending Clinician Unavailable Elisha Attending Clinician Unavailable Yessica, Orlin Admitting Clinician Unavailable Physician, Primary or Family Admitting Clinician Unavailwoo Dillon MD Admitting Clinician Kathia Admitting Clinician Unavailable [place] Admitting Clinician Unavailable Elisha Admitting Clinician Unavailable Payers Payer Name Policy Type Policy Number Effective Date Expiration Date S ource Problems Condition Condition Condition Status Onset Resolution Last Treating Co mments Source Name Details Category Date Date Treatment Clinician Date Morbid Morbid Disease Active Univers obesity obesity 7-24 ity of 00:00: [place] 00 Medical Branch Pulmonary Pulmonary Disease Active Uni vers edema with edema with 7-23 it y of congestive [place]ive 00:[place] heart heart 00 Medical failure failure Branch Chest pain Chest pain Disease Active U nivers 7-19 ity of 00:00: [place] 00 Medical Branch Left-sided Left-sided Disease Active U nivers weakness weakness 5-17 ity of 00:00: [place] 00 Medical Branch Stroke, Stroke, Disease Active Univers acute, acute, 5-17 ity of embolic embolic 00:00: [place] 00 Medical Branch Noncomplia Noncomplia Disease Active U nivers nce nce 5-11 ity of 00:00: [place] 00 Medical Branch Acute CVA Acute CVA Disease Active Uni vers (cerebrova (cerebrova 3-24 it y of scular scular 00:00: [place] accident) accident) [address] [facility] Branch Dyslipidem Dyslipidem Disease Active U nivers ia ia 3-11 ity of 00:00: [place] 00 Medical Branch Chronic Chronic Disease Active Univers left-sided left-sided 2-12 it y of low back low back 00:00: [place] pain with pain with 00 [facility] jennifer sciatica, sciatica, Bran ch sciatica sciatica laterality laterality unspecifie unspecifie d d Cardiac Cardiac Disease Active Univers resynchron resynchron 1-13 it y of ization ization 00:00: [place] therapy therapy 00 Medical defibrilla defibrilla Br anch tor tor (DAY WORKER-D) in (DAY WORKER-D) in place place ICD ICD Disease Active Univers (implantab (implantab 1-12 it y of le le 00:00: [place] cardiovert cardiovert 00 Me dical er-defibri er-defibri Br anch llator) in llator) in place place 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 1-05 ity of 00:00: [place] 00 Medical Branch Acute on Acute on Disease Active 2019-08 Unive rs chronic chronic 2-29 ity of systolic systolic 00:00: [place] congestive congestive 00 Me dical heart heart Branch failure failure Chronic Chronic Disease Active 2019-08 Univers combined combined 0-14 ity of systolic systolic 00:00: [place] and and 00 Medical diastolic diastolic Bran ch congestive congestive heart heart failure failure Chest pain Chest pain Disease Active U nivers of unknown of unknown 8-31 it y of etiology etiology 00:00: [place] 00 Medical Branch NSTEMI NSTEMI Disease Active Univers (non-ST (non-ST 2-26 ity of elevated elevated 00:00: [place] myocardial myocardial 00 Me dical infarction infarction Br anch ) ) Non-intrac Non-intrac Disease Active U nivers table table 2-06 ity of vomiting vomiting 00:00: [place] with with 00 Medical nausea, nausea, Branch unspecifie unspecifie d vomiting d vomiting type type Cardiomyop Cardiomyop Disease Active U nivers athy athy 1-21 ity of 00:00: [place] 00 Medical Branch PAF PAF Disease Active Univers (paroxysma (paroxysma 03-11 it y of l atrial l atrial 00:00: [place] fibrillati fibrillati 00 Me dical on) on) Branch Stage 3 Stage 3 Disease Active Univers chronic chronic 4-18 ity of kidney kidney 00:00: [place] disease disease 00 Medical Branch Myocardial Myocardial Disease Active U nivers infarction infarction 1-29 it y of type 2 type 2 00:00: [place] 00 Medical Branch Diverticul Diverticul Disease Active U nivers osis large osis large 7-20 it y of intestine intestine 00:00[place] w/[place] w/o 00 Medical perforatio perforatio Br anch n or n or abscess abscess w/o w/o bleeding bleeding Diabetic Diabetic Disease Active Overview: Un dino eye exam eye exam 7-11 Formattin ity of 00:00: g of this note Medical might be Branch different from the original. Added automatic ally from request for surgery [id number] Atypical Atypical Disease Active 2015-08 Unive rs chest pain chest pain 2-20 it y of 00:00: [place] 00 Medical Branch PRAVEEN on PRAVEEN on Disease Active Univers CPAP CPAP 4-14 ity of 00:00: [place] [facility] Chronic Chronic Disease Active Univers combined combined 2-20 ity of systolic systolic 00:00: [place] and and 00 Medical diastolic diastolic Bran ch CHF, NYHA CHF, NYHA class 2 class 2 LVH (left LVH (left Disease Active Uni vers ventricula ventricula 2-20 it y of r r 00:00: [place] hypertroph hypertroph 00 Me dical y) y) Branch Nonischemi Nonischemi Disease Active U nivers c c 2-20 ity of cardiomyop cardiomyop 00:00: [place] athy athy 00 Medical Branch Metabolic Metabolic Disease Active 2014-08 Uni vers syndrome syndrome 1-21 ity of 00:00: [place] [facility] ACC/AHA ACC/AHA Disease Active 2014-08 Univers stage B stage B 1-21 ity of congestive congestive 00:00[place] heart heart 00 Medical failure failure Branch Essential Essential Disease Active 2014-08 Uni vers hypertensi hypertensi 0-01 it y of on on 00:00: [place] [facility] 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 0-01 ity of mellitus mellitus 00:00: [place] with with 00 Medical complicati complicati Br anch on, on, without without long-term long-term current current use of use of insulin insulin Loss of Loss of Disease Active 2014-08 Univers one eye one eye 0-01 ity of 00:00: [place] 00 Medical Branch CVA, old, CVA, old, 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 0-01 it y of s s 00:00: [place] [facility] Chronic Chronic Disease Active 2014-08 Univers dental dental 0-01 ity of pain pain 00:00: [place] 00 Medical Branch Allergies, Adverse Reactions, Alerts Allergy Allergy Status Severity Reaction(s) Onset Inactive Treating Comm ents Source Name Type Date Date Clinician No Known DA Active [facility] Allergie 4-30 Clear s 00:00: [address] No Known DA Active U [facility] Allergie 4-29 [place] s 00:00: d 00 Medical [place] Isosorbi Propensi Active Other - See Severe U nivers de ty to comments 04-04 hypotensi ity o f Mononitr adverse 00:00: on, [place] ate reaction 00 likely Medical s from Branch severe LVH per Dr. Zamora. No Known DA Active [facility] Allergie 4-10 [place] [facility] Social History Social Habit Start Date Stop Date Quantity Comments Source Exposure to Not sure [facility] SARS-CoV-2 [facility] (event) Branch Tobacco use and 2021-04-09 2021-04-09 Never used Universit y of exposure 00:00:00 00:00:00 [facility] Branch Alcohol intake 2021-04-09 2021-04-09 Current University of 00:00:00 00:00:00 non-drinker of [facility] alcohol Branch (finding) History [facility] 2020-04-30 2020-04-30 13 University o f Education 00:00:00 00:00:00 [place] [facility] History SDTN 2019-08-22 2019-08-22 3 University o f Financial 00:00:00 00:00:00 [place] [facility] History [facility] Food 2019-08-22 2019-08-22 1 Univers ity of Worry 00:00:00 00:00:00 [place] [facility] History SDTN Food 2019-08-22 2019-08-22 1 Univers ity of Scarcity 00:00:00 00:00:00 [place] [facility] History SDTN 2019-08-22 2019-08-22 2 University o f Transport Med 00:00:00 00:00:00 [place] [facility] al Branch History SDTN 2019-08-22 2019-08-22 2 University o f Transport Non-Med 00:00:00 00:00:00 [facility] edical Branch Sex [birth year] Universit y of 00:00:00 00:00:00 [facility] Branch Smoking Status Start Date Stop Date Source Never smoker [facility] Medications Ordered Filled Start Stop Current Ordering Indication Dosage Frequency Signature Comments Components Source Medication Medication Date Date Medication? Clinician (SIG) Name Name clopidogreL Yes 75mg Take 1 Univ ers 75 mg 04-10 tablet by ity of tablet 00:00: mouth [place] 00 daily. Medical Branch aspirin 81 0 Yes [id number] 81mg Take 1 U nivers mg EC 9-08 tablet by ity of tablet 00:00: mouth [place] 00 daily. Medical Branch clopidogreL 2020-0 Yes 75mg Take 1 Univ ers 75 mg 9-08 tablet by ity of tablet 00:00: mouth [place] 00 daily. Medical Branch aspirin 81 2020-0 Yes [id number] 81mg Take 1 U nivers mg EC 9-08 tablet by ity of tablet 00:00: mouth [place] 00 daily. Medical Branch clopidogreL 0 Yes 75mg Take 1 Univ ers 75 mg 9-08 tablet by ity of tablet 00:00: mouth [place] 00 daily. Medical Branch aspirin 81 0 Yes [id number] 81mg Take 1 U nivers mg EC 9-08 tablet by ity of tablet 00:00: mouth [place] 00 daily. [facility] Branch metoprolol 2020- Yes [id number] 50mg Take 1 Univers succinate 04-05 tablet by ity of XL 50 mg 24 00:00: 05:59 [place] hr tablet 00 :00 daily for Medic al 90 days. Branch metoprolol 2020- Yes [id number] 50mg Take 1 Univers succinate 04-05 tablet by ity of XL 50 mg 24 00:00: 05:59 mouth [place] hr tablet 00 :00 daily for Medic al 90 days. [place] metoprolol 2020- Yes [id number] 50mg Take 1 Univers succinate 04-05 tablet by ity of XL 50 mg 24 00:00: 05:59 mouth [place] hr tablet 00 :00 daily for Medic al 90 days. Branch metoprolol 2020- Yes [id number] 50mg Take 1 Univers succinate 04-05 tablet by ity of XL 50 mg 24 00:00: 05:59 mouth [place] hr tablet 00 :00 daily for Medic al 90 days. Branch milrinone Yes [id number] 49.3ug/ 49.3 Univers in 5 % 04-04 9100 min mcg/min by ity of dextrose 20 00:00: IV [place] mg/100 mL 00 Infusion Medica l (200 route Branch mcg/mL) CONTINUOUS infusion . RTU milrinone Yes [id number] 49.3ug/ 49.3 Univers in 5 % 04-04 9100 min mcg/min by ity of dextrose 20 00:00: IV [place] mg/100 mL 00 Infusion Medica l (200 route Branch mcg/mL) CONTINUOUS infusion . RTU milrinone Yes [id number] 49.3ug/ 49.3 Univers in 5 % 04-04 9100 min mcg/min by ity of dextrose 20 00:00: IV [place] mg/100 mL 00 Infusion Medica l (200 route Branch mcg/mL) CONTINUOUS infusion . RTU milrinone Yes [id number] 49.3ug/ 49.3 Univers in 5 % 04-04 9100 min mcg/min by ity of dextrose 20 00:00: IV [place] mg/100 mL 00 Infusion Medica l (200 route Branch mcg/mL) CONTINUOUS infusion . RTU atorvastati 2020- Yes [id number] 40mg Take 1 Univers n 40 mg 04-04 tablet by ity of tablet 00:00: 05:59 mouth at [place] 00 :00 bedtime Medical for 90 Branch days. furosemide 2020- Yes [id number] 60mg Take 3 Univers 20 mg 04-04 tablets by ity of tablet 00:00: 05:59 mouth 2 [place] 00 :00 (two) Medical times Branch daily for 90 days. hydrALAZINE 2020- Yes [id number] 50mg Take 1 Univers 50 mg 04-04 tablet by ity of tablet 00:00: 05:59 mouth [place] 00 :00 every 8 Medical (eight) Branch hours for 90 days. isosorbide 2020- Yes [id number] 40mg Take 1 Univers dinitrate 04-04 tablet by ity of 40 mg 00:00: 05:59 mouth 3 [place] tablet 00 :00 (three) Medical times Branch daily for 90 days. SERTraline 2020- Yes [id number] 50mg Take 1 Univers 50 mg 04-04 9100 tablet by ity of tablet 00:00: 05:59 mouth at [place] 00 :00 bedtime Medical for 90 Branch days. atorvastati 2020- Yes [id number] 40mg Take 1 Univers n 40 mg 04-04 tablet by ity of tablet 00:00: 05:59 mouth at [place] 00 :00 bedtime Medical for 90 Branch days. furosemide 2020- Yes [id number] 60mg Take 3 Univers 20 mg 04-04 tablets by ity of tablet 00:00: 05:59 mouth 2 [place] 00 :00 (two) Medical times Branch daily for 90 days. hydrALAZINE 2020- Yes [id number] 50mg Take 1 Univers 50 mg 04-04 tablet by ity of tablet 00:00: 05:59 mouth [place] 00 :00 every 8 Medical (eight) Branch hours for 90 days. isosorbide 2020- Yes [id number] 40mg Take 1 Univers dinitrate 04-04 tablet by ity of 40 mg 00:00: 05:59 mouth 3 [place] tablet 00 :00 (three) Medical times Branch daily for 90 days. SERTraline 2020- Yes [id number] 50mg Take 1 Univers 50 mg 04-04 9100 tablet by ity of tablet 00:00: 05:59 mouth at [place] 00 :00 bedtime Medical for 90 Branch days. atorvastati 2020- Yes [id number] 40mg Take 1 Univers n 40 mg 04-04 tablet by ity of tablet 00:00: 05:59 mouth at [place] 00 :00 bedtime Medical for 90 Branch days. furosemide 2020- Yes [id number] 60mg Take 3 Univers 20 mg 04-04 tablets by ity of tablet 00:00: 05:59 mouth 2 [place] 00 :00 (two) Medical times Branch daily for 90 days. hydrALAZINE 2020- Yes [id number] 50mg Take 1 Univers 50 mg 04-04 tablet by ity of tablet 00:00: 05:59 mouth [place] 00 :00 every 8 Medical (eight) Branch hours for 90 days. isosorbide 2020- Yes [id number] 40mg Take 1 Univers dinitrate 04-04 tablet by ity of 40 mg 00:00: 05:59 mouth 3 [place] tablet 00 :00 (three) Medical times Branch daily for 90 days. SERTraline 2020- Yes [id number] 50mg Take 1 Univers 50 mg 04-04 9100 tablet by ity of tablet 00:00: 05:59 mouth at [place] 00 :00 bedtime Medical for 90 Branch days. atorvastati 2020- Yes [id number] 40mg Take 1 Univers n 40 mg 04-04 tablet by ity of tablet 00:00: 05:59 mouth at [place] 00 :00 bedtime Medical for 90 Branch days. furosemide 2020- Yes [id number] 60mg Take 3 Univers 20 mg 04-04 tablets by ity of tablet 00:00: 05:59 mouth 2 [place] 00 :00 (two) Medical times Branch daily for 90 days. hydrALAZINE 2020- Yes [id number] 50mg Take 1 Univers 50 mg 04-04 tablet by ity of tablet 00:00: 05:59 mouth [place] 00 :00 every 8 Medical (eight) Branch hours for 90 days. isosorbide 2020- Yes [id number] 40mg Take 1 Univers dinitrate 04-04 tablet by ity of 40 mg 00:00: 05:59 mouth 3 [place] tablet 00 :00 (three) Medical times Branch daily for 90 days. SERTraline 2020- Yes [id number] 50mg Take 1 Univers 50 mg 04-04 9100 tablet by ity of tablet 00:00: 05:59 mouth at [place] 00 :00 bedtime Medical for 90 Branch days. bismuth 2020- Yes [id number] 262mg Take 1 U nivers subsalicyla 04-04 tablet by it y of te 262 mg 00:00: 04:59 mouth 4 [place] chewable 00 :00 (four) Medical tablet times Branch daily for 14 days. metroNIDAZO 2020- Yes [id number] 500mg Take 2 Univers LE 250 mg 04-04 tablets by ity of tablet 00:00: 04:59 mouth [place] 00 :00 every 8 Medical (eight) Branch hours for 14 days. tetracyclin 2020- Yes [id number] 500mg Take 1 Univers e 500 mg 04-04 capsule by ity of capsule 00:00: 04:59 mouth 4 [place] 00 :00 (four) Medical times Branch daily for 14 days. omeprazole 2020- Yes [id number] 40mg Take 1 Univers 40 mg 04-04 capsule by ity of capsule 00:00: 04:59 mouth 2 [place] 00 :00 (two) Medical times Branch daily for 14 days. bismuth 2020- Yes [id number] 262mg Take 1 U nivers subsalicyla 04-04 tablet by it y of te 262 mg 00:00: 04:59 mouth 4 [place] chewable 00 :00 (four) Medical tablet times Branch daily for 14 days. metroNIDAZO 2020- Yes [id number] 500mg Take 2 Univers LE 250 mg 04-04 tablets by ity of tablet 00:00: 04:59 mouth [place] 00 :00 every 8 Medical (eight) Branch hours for 14 days. tetracyclin 2020- Yes [id number] 500mg Take 1 Univers e 500 mg 04-04 capsule by ity of capsule 00:00: 04:59 mouth 4 [place] 00 :00 (four) Medical times Branch daily for 14 days. omeprazole 2020- Yes [id number] 40mg Take 1 Univers 40 mg 04-04 capsule by ity of capsule 00:00: 04:59 mouth 2 [place] 00 :00 (two) Medical times Branch daily for 14 days. bismuth 2020- Yes [id number] 262mg Take 1 U nivers subsalicyla 04-04 tablet by it y of te 262 mg 00:00: 04:59 mouth 4 [place] chewable 00 :00 (four) Medical tablet times Branch daily for 14 days. metroNIDAZO 2020- Yes [id number] 500mg Take 2 Univers LE 250 mg 04-04 tablets by ity of tablet 00:00: 04:59 mouth [place] 00 :00 every 8 Medical (eight) Branch hours for 14 days. tetracyclin 2020- Yes [id number] 500mg Take 1 Univers e 500 mg 04-04 capsule by ity of capsule 00:00: 04:59 mouth 4 [place] 00 :00 (four) Medical times Branch daily for 14 days. omeprazole 2020- Yes [id number] 40mg Take 1 Univers 40 mg 04-04 capsule by ity of capsule 00:00: 04:59 mouth 2 [place] 00 :00 (two) Medical times Branch daily for 14 days. bismuth 2020- Yes [id number] 262mg Take 1 U nivers subsalicyla 04-04 tablet by it y of te 262 mg 00:00: 04:59 mouth 4 [place] chewable 00 :00 (four) Medical tablet times Branch daily for 14 days. metroNIDAZO 2020- Yes [id number] 500mg Take 2 Univers LE 250 mg 04-04 tablets by ity of tablet 00:00: 04:59 mouth [place] 00 :00 every 8 Medical (eight) Branch hours for 14 days. tetracyclin 2020- Yes [id number] 500mg Take 1 Univers e 500 mg 04-04 capsule by ity of capsule 00:00: 04:59 mouth 4 [place] 00 :00 (four) Medical times Branch daily for 14 days. omeprazole 2020- Yes [id number] 40mg Take 1 Univers 40 mg 04-04 capsule by ity of capsule 00:00: 04:59 mouth 2 [place] 00 :00 (two) Medical times Branch daily for 14 days. KCL 20 mEq Yes [id number] 20meq Take 1 Univers tablet 8-17 tablet by ity of 00:00: mouth [place] 00 daily. Medical Branch KCL 20 mEq Yes [id number] 20meq Take 1 Univers tablet 8-17 tablet by ity of 00:00: mouth [place] 00 daily. Medical Branch KCL 20 mEq Yes [id number] 20meq Take 1 Univers tablet 8-17 tablet by ity of 00:00: mouth [place] 00 daily. Medical Branch KCL 20 mEq Yes [id number] 20meq Take 1 Univers tablet 8-17 tablet by ity of 00:00: mouth [place] 00 daily. Medical Branch carvediloL 2020- No [id number] 50mg Take 2 Univers (COREG) 25 03-19-07 tablets by it y of mg tablet 00:00: 00:00 mouth 2 [place] 00 :00 (two) Medical times Branch daily. apixaban 5 2020- No [id number] 5mg Take 1 Univ ers mg (74 03-19- tablet by ity of tabs) 5 mg 00:00: 00:00 mouth 2 [place] as VTE starter 00 :00 (two) Medical pack times Branch daily. Follow dosing instructio ns included in package. Indication s: atrial fibrillati on Diclofenac Yes [id number] Apply to Univers Epolamine 7-08 05 skin as ity of 1.3 % patch 00:00: needed [place] 00 (once a Medical day as Branch needed for severe knee pain). acetaminoph Yes [id number] 1{tbl} Take 1 Un dino en-codeine 7-08 tablet by ity of 300-30 mg 00:00: mouth [place] tablet 00 needed Medical (take Branch daily as needed for severe right knee pain, s/p TKA, heart failure, unable to take NSAIDS). Indication s: chronic pain Diclofenac Yes [id number] Apply to Univers Epolamine 7-08 05 skin as ity of 1.3 % patch 00:00: needed [place] 00 (once a Medical day as Branch needed for severe knee pain). acetaminoph Yes [id number] 1{tbl} Take 1 Un dino en-codeine 7-08 tablet by ity of 300-30 mg 00:00: mouth as [place] tablet 00 needed Medical (take Branch daily as needed for severe right knee pain, s/p TKA, heart failure, unable to take NSAIDS). Indication s: chronic pain Diclofenac Yes [id number] Apply to Univers Epolamine 7-08 05 skin as ity of 1.3 % patch 00:00: needed [place] 00 (once a Medical day as Branch needed for severe knee pain). acetaminoph Yes 2745 1{tbl} Take 1 Un dino en-codeine 7-08 tablet by ity of 300-30 mg 00:00: mouth as [place] tablet 00 needed Medical (take Branch daily as needed for severe right knee pain, s/p TKA, heart failure, unable to take NSAIDS). Indication s: chronic pain Diclofenac Yes [id number] Apply to [facility] Epolamine 7-08 05 skin as ity of 1.3 % patch 00:00: needed [place] 00 (once a Medical day as Branch needed for severe knee pain). acetaminoph Yes 2745 1{tbl} Take 1 Un dino en-codeine 7-08 tablet by ity of 300-30 mg 00:00: mouth as [place] tablet 00 needed Medical (take Branch daily as needed for severe right knee pain, s/p TKA, heart failure, unable to take NSAIDS). Indication s: chronic pain CLOPIDOGREL Yes TAKE 1 Univ ers 75 mg 6-23 TABLET BY ity of tablet 00:00: MOUTH [place] 00 EVERY DAY Medical Branch CLOPIDOGREL 0 2020- No TAKE 1 Uni vers 75 mg 6-23 09-08 TABLET BY ity of tablet 00:00: 00:00 MOUTH [place] 00 :00 EVERY DAY Medical Branch aspirin 81 0 Yes [id number] 81mg Take 1 U nivers mg EC 5-28 tablet by ity of tablet 00:00: mouth [place] 00 daily. Medical Branch spironolact 0 Yes 25mg Take 1 Univ ers one 25 mg 5-28 tablet by ity o f tablet 00:00: mouth [place] 00 daily. Medical Branch nitroglycer Yes [id number] .4mg Place 1 Univers in 0.4 mg 5-28 tablet ity of sublingual 00:00: under the [place] tablet 00 tongue Medical every 5 Branch (five) minutes as needed for Chest pain. spironolact 0 Yes 25mg Take 1 Univ ers one 25 mg 5-28 tablet by ity o f tablet 00:00: mouth [place] 00 daily. Medical Branch nitroglycer [id number] 1 Univers in 0.4 mg 5-28 tablet ity of sublingual 00:00: under the [place] tablet 00 tongue Medical every 5 Branch (five) minutes as needed for Chest pain. spironolact 0 Yes 25mg Take 1 Univ ers one 25 mg 5-28 tablet by ity o f tablet 00:00: mouth [place] 00 daily. Medical Branch nitroglycer Yes [id number] .4mg Place 1 Univers in 0.4 mg 5-28 tablet ity of sublingual 00:00: under the [place] tablet 00 tongue Medical every 5 Branch (five) minutes as needed for Chest pain. spironolact Yes 25mg Take 1 Univ ers one 25 mg 5-28 tablet by ity o f tablet 00:00: mouth [place] 00 daily. Medical Branch nitroglycer Yes [id number] .4mg Place 1 Univers in 0.4 mg 5-28 tablet ity of sublingual 00:00: under the [place] tablet 00 tongue Medical every 5 Branch (five) minutes as needed for Chest pain. aspirin 81 2020- No [id number] 81mg Take 1 Univers mg EC 5-28 09-08 tablet by ity of tablet 00:00: 00:00 mouth [place] 00 :00 daily. Medical Branch glipiZIDE 5 Yes [id number] 5mg Take 1 Univers mg tablet 3-11 tablet by ity o f 00:00: mouth (two) Medical times Branch daily before breakfast and dinner. glipiZIDE 5 Yes [id number] 5mg Take 1 Univers mg tablet 3-11 tablet by ity o f 00:00: mouth (two) Medical times Branch daily before breakfast and dinner. glipiZIDE 5 0 Yes [id number] 5mg Take 1 Univers mg tablet 3-11 tablet by ity o f 00:00: mouth (two) Medical times Branch daily before breakfast and dinner. glipiZIDE 5 0 Yes [id number] 5mg Take 1 Univers mg tablet 3-11 tablet by ity o f 00:00: mouth (two) Medical times Branch daily before breakfast and dinner. Miscellaneo Yes [id number] I10 - U [facility] 09-11 Dispense ity o f Supply Kit 00:00: blood 00 pressure Medical cuff (any Branch brand), take BP at home BID Miscellaneo Yes [id number] I10 - U [facility] 09-11 Dispense ity o f Supply Kit 00:00: blood pressure Medical cuff (any Branch brand), take BP at home BID Miscellaneo 2020-0 Yes [id number] I10 - U nivers [facility] 2- Dispense ity o f Supply Kit 00:00: blood [place] 00 pressure Medical cuff (any Branch brand), take BP at home BID Miscellaneo 2020-0 Yes [id number] I10 - U nivers [facility] 2 Dispense ity o f Supply Kit 00:00: blood [place] 00 pressure Medical cuff (any Branch brand), take BP at home BID Immunizations Ordered Filled Immunization Date Status Comments [facility] e Immunization Name Name Influenza Virus 2020-09-24 Completed Universit y of Vaccine Quad .5 mL 00:00:00 [place] Medical IM 6+ MO Branch Influenza Virus 2020-09-24 Completed Universit y of Vaccine Quad .5 mL 00:00:00 [place] Medical IM 6+ MO Branch Influenza Virus 2020-09-24 Completed Universit y of Vaccine Quad .5 mL 00:00:00 [place] Medical IM 6+ MO Branch Influenza Virus 2020-09-24 Completed Universit y of Vaccine Quad .5 mL 00:00:00 [place] Medical IM 6+ MO Branch Influenza Virus 2020-05-03 Completed Universit y of Vaccine Quad .5 mL 00:00:00 [place] Medical IM 6+ MO Branch Influenza Virus 2020-05-03 Completed Universit y of Vaccine Quad .5 mL 00:00:00 [place] Medical IM 6+ MO Branch Influenza Virus 2020-05-03 Completed Universit y of Vaccine Quad .5 mL 00:00:00 [place] Medical IM 6+ MO Branch Influenza Virus 2020-05-03 Completed Universit y of Vaccine Quad .5 mL 00:00:00 [place] Medical IM 6+ MO Branch Influenza Virus 2019-06-14 Completed [facility] Vaccine Quad .5 mL 00:00:00 [facility] IM 6+ MO Branch Influenza Virus 2019-06-14 Completed [facility]ine [facility] .5 mL 00:00:00 [facility] IM 6+ MO Branch Influenza Virus 2019-06-14 Completed [facility] Vaccine Quad .5 mL 00:00:00 [facility] IM 6+ MO Branch Influenza Virus 2019-06-14 Completed [facility] Vaccine Quad .5 mL 00:00:00 [facility] IM 6+ MO [facility] Influenza Virus 2018-07-07 Completed [facility] Vaccine Quad IM 3+ 00:00:00 [facility] Influenza Virus 2018-07-07 Completed [facility] of Vaccine Quad IM 3+ 00:00:00 [facility] Influenza Virus 2018-07-07 Completed [facility] Vaccine Quad IM 3+ 00:00:00 [facility] Influenza Virus 2018-07-07 Completed [facility] Vaccine Quad IM 3+ 00:00:00 [facility] Td 2017-08-01 Completed University of 00:00:00 [facility] Td 2017-08-01 Completed University of 00:00:00 [facility] Td 2017-08-01 Completed University of 00:00:00 [facility] Td 2017-08-01 Completed University of 00:00:00 [facility] Influenza Virus 2016-05-22 Completed [facility] Vaccine Quad IM 3+ 00:00:00 [facility] Influenza Virus 2016-05-22 Completed [facility] Vaccine Quad IM 3+ 00:00:00 [facility] Influenza Virus 2016-05-22 Completed [facility] Vaccine Quad IM 3+ 00:00:00 [facility] Influenza Virus 2016-05-22 Completed [facility] Vaccine Quad IM 3+ 00:00:00 [facility] Pneumococcal 2015-08-31 Completed University o f Polysaccharide, 00:00:00 [place] [facility] PPSV23 (PNEUMOVAX) Branch Pneumococcal 2015-08-31 Completed [facility] o f Polysaccharide, 00:00:00 [place] [facility] PPSV23 (PNEUMOVAX) Branch Pneumococcal 2015-08-31 Completed [facility] Polysaccharide, 00:00:00 [place] [facility] PPSV23 (PNEUMOVAX) [facility] Pneumococcal 2015-08-31 Completed University o f Polysaccharide, 00:00:00 [place] [facility] PPSV23 (PNEUMOVAX) Branch Influenza Virus 2015-05-25 Completed [facility] Vaccine [facility] IM 00:00:00 [facility] Multi-dose 6+ MO [facility] Influenza Virus 2015-05-25 Completed [facility] Vaccine Quad IM 00:00:00 [facility] Multi-dose 6+ MO [facility] Influenza Virus 2015-05-25 Completed [facility] Vaccine Quad IM 00:00:00 [facility] Multi-dose 6+ MO [facility] Influenza Virus 2015-05-25 Completed [facility] Vaccine [facility] IM 00:00:00 [facility] Multi-dose 6+ [facility] Vital Signs Vital Name Observation Time Observation Value Comments Source Systolic blood 2021-04-09 19:09:00 124 mm[Hg] Univer sity of pressure [facility] Diastolic blood 2021-04-09 19:09:00 50 mm[Hg] Unive rsity of pressure [facility] Heart rate 2021-04-09 19:09:00 104 /min [facility] Body temperature 2021-04-09 19:09:00 36.44 Sara [facility] Res[facility] rate 2021-04-09 19:09:00 16 /min [facility] Body weight 2021-04-09 19:09:00 135.399 kg [facility] BMI 2021-04-09 19:09:00 38.33 kg/m2 [facility] Oxygen saturation in 2021-04-09 19:09:00 97 /min [facility] blood by [facility] Pulse oximetry Branch Procedures This patient has no known procedures. Encounters Start End Encounter Admission Attending Care Care Encounter Source Date/Time Date/Time Type Type Clinicians Facility Department ID 2021-04-12 2021-04-12 [facility]114 [id number] [facility] 00:00:00 00:00:00 Rochelle Grover 350.1.13.10 [place] [id number] [address] 2021-04-11 2021-04-11 Telephone Robert [facility] 1..840.114 [id number] Univers 00:00:00 00:00:00 Rochelle Grover 350.1.13.10 [place]y [place] [id number] [address] 2021-04-09 2021-04-09 Office Nicolás Sotelo 1.2.840.114 [id number] [facility] 13:56:45 14:54:06 Visit Francesca Pediatric 350.1.13.10 ity of [place] [id number] [facility] Primary [facility] 2021-04-09 2021-04-09 [facility] 1.2.840.114 [id number] [facility] 00:00:00 00:00:00 [place] 350.1.13.10 ity of [place] 4.2.7.2.686 Glenn Arriaga [id number] [facility] Medical [address] Office Building 2021-02-28 2021-03-01 Inpatient EM Ahmed, HCAPM INTE.02 [id number] [facility] 16:19:00 15:10:00 [facility] [id number] [facility] 2021-02-28 2021-02-28 Outpatient Ahmed, HCACL LABO [id number] -[id number] [facility] 08:44:00 08:44:00 [facility] [id number] [facility] 2021-02-27 2021-02-27 Inpatient EM Ahmed, HCAPM INTE.02 [id number] 20 [facility] 12:18:00 12:17:00 [facility] [id number] [facility] 2021-02-27 2021-02-27 Transition Sridhar Seth 1.2.840.114 [id number] 00:00:00 00:00:00 of Care Heavenly Jiang 350.1.13.10 Araseli 4.2.7.2.686 [id number] 2021-02-26 2021-02-26 Transition Sridhar Seth 1.2.840.114 [id number] 00:00:00 00:00:00 of Care Heavenly Jiang 350.1.13.10 Araseli 4.2.7.2.686 [id number] 403 2021-02-25 2021-02-25 Rolly Vieira [facility] 1.2.840.114 [id number] 00:00:00 00:00:00 Ayush Grover 350.1.13.10 [place] 4.2.7.2.686 Herlinda [id number] [address] 2021-02-22 2021-02-24 Emergency [facility] 1.2.595.487 [id number] 20:27:00 15:41:00 Doris Grover 350.1.13.10 [place] 4.2.7.2.686 [place] [id number] 2021-02-13 2021-02-13 Patient Artemio NMMARIANNE 1.2.840.114 [id number] 00:00:00 00:00:00 Outreach Nikole Grover 350.1.13.10 [place] 4.2.7.2.686 [facility] [id number] [address] 2021-02-04 2021-02-06 Inpatient EM Akalejandrina, HCACL INTE.02 [id number] [facility] 20:15:00 16:26:00 Precious [id number] [facility] 2021-02-04 2021-02-04 Emergency EM Nasim, HCAPM PAOLA [id number] 20 [facility] 12:54:00 19:20:00 Isac [id number] [facility] 2021-01-03 2021-01-07 Inpatient EM Scott, HCAPM INTE.02 [id number] 20 [facility] 15:04:00 14:00:00 Yared [id number] [facility] 2020-11-30 2020-12-05 Inpatient EM Elisha, HCACR TELE [id number]- 20 [facility] 16:20:00 11:58:00 Benoit [id number] [facility] 2020-05-29 2020-05-29 Inpatient E [facility] 05:06:00 03:46:00 [facility] Results Test Description Test Time Test Comments Results Result Comments Source GLUCOSE BEDSIDE TESTING 2021-03-01 11:27:00 Test Item Value Reference Range Interpretation Comme nts GLUCOSE BEDSIDE TESTING (test code = GLUBED) 109 mg/dL 70-110 N BASIC METABOLIC [id number] 08:09:00 Test Item Value Reference Range Interpretation [...] CA) 9.5 MG/DL 8.5-10.1 N GLUCOSE BEDSIDE [id number] 07:15:00 Test Item Value Reference Range Interpretation Comments GLUCOSE BEDSIDE TESTING (test code 102 mg/dL 70-110 N = GLUBED) GLUCOSE BEDSIDE [id number] 23:04:00 Test Item Value Reference Range Interpretation Comments GLUCOSE BEDSIDE TESTING (test code 127 mg/dL 70-110 H = GLUBED) GLUCOSE BEDSIDE [id number] 20:03:00 Test Item Value Reference Range Interpretation Comments GLUCOSE BEDSIDE TESTING (test code 149 mg/dL 70-110 H = GLUBED) GLUCOSE BEDSIDE [id number] 16:55:00 Test Item Value Reference Range Interpretation Comments GLUCOSE BEDSIDE TESTING (test code 110 mg/dL 70-110 N = GLUBED) GLUCOSE BEDSIDE [id number] 11:23:00 Test Item Value Reference Range Interpretation Comments GLUCOSE BEDSIDE TESTING (test code 173 mg/dL 70-110 H = GLUBED) GLUCOSE BEDSIDE [id number] 08:33:00 Test Item Value Reference Range Interpretation Comments GLUCOSE BEDSIDE TESTING (test code 107 mg/dL 70-110 N = GLUBED) DRUGS OF ABUSE SCREEN [id number] 06:11:00 Test Item Value Reference Range Interpretation [...] to interpret this result as normal/abnormal . [id number] 20:43:00 Test Item Value Reference Range Interpretation [...] Completed by Nursing: NO- CTA CHEST FOR [id number] 18:35:00 [facility] 1965 Sex: M Name: WILMER PARADA [facility] : 1965 Age/S: 55 / M [address] Unit #: [id number] Loc: [place] [address] Phys: Isac Rouse DO Acct: [id number] Dis Date: Status: REG ER PHONE #: [phone] Exam Date: 02/27/2021 1800 FAX #: Reason: chest pain, elevated ddimer EXAMS: CPT: [id number] [place] [address] Location of dictation: B2 CTA of the [...] PARADA : 1965 Age/S: 55 / M [address] Unit #: [id number] Loc: [place] [address] Phys: Isac Rouse DO Acct: [id number] Dis Date: Status: REG ER PHONE #: [phone] Exam Date: 02/27/2021 1800 FAX #: Reason: chest pain, elevated ddimer EXAMS: CPT: [id number] [place] [address] <Continued> at 1835 Reported and signed by: April Marsh M.D. CC: Isac Rouse DO Technologist:Caitlin Slaughter, RT(R)(CT)(MRI) CTDI: DLP: Trnscb Date/Time: 02/27/2021 (183) [email or web address].[facility] Orig Print D/T: S: 02/27/2021 (183) PAGE 2 Signed ReportCOVID 19 INHOUSE AG 2021-02-27 14:54:00 Test Item Value Reference Range Interpretation Comments COVID 19 INHOUSE AG NEGATIVE Negative Per manu facturer, (test code = negative result s should [id number]) be treated aspr esumptive and, if inconsi [...] nicalsigns and symptoms co nsistent with COVID-19. [id number] 13:38:00 Test Item Value Reference Range Interpretation [...] APPROPRIATECLIN ICAL EUALUATIONS. - XR CHEST 1 [id number] 13:35:00 [facility] : 1965 Sex: M Name: WILMER PARADA [facility] : 1965 Age/S: 55 / M [address] Unit #: [id number] Loc: [place] [address] Phys: Isac Rouse DO Acct: [id number] Dis Date: Status: REG ER PHONE #: [phone] Exam Date: 02/27/2021 1320 FAX #: Reason: chest pain EXAMS: CPT: [id number] XR CHEST 1 V 68892 Fluoro Time: DAP (Gy m2): Air Kerma [...] the chest with no acute findings. at 1335 Reported and signed by: April Marsh M.D. CC: Isac Davis PAGE 1 Signed Report Name: WILMER PARADA : 1965 Age/S: 55/ M [address] Unit #: [id number] Loc: [place] [address] Phys: Isac Rouse DO Acct: [id number] Dis Date: Status: REG ER PHONE #: [phone] Exam Date: 02/27/2021 1320 FAX #: Reason: chest pain EXAMS: CPT: [id number] XR CHEST 1 V 51040 Fluoro Time:DAP (Gy m2): Air Kerma (mGy): <Continued> Technologist: Bandar Tirado RT(R)(CT) Trnscb Date/Time: 02/27/2021 (2629) tANGELIQUEPXC Orig Print D/T: S: 02/27/2021 (2384) PAGE 2 Signed ReportBASIC METABOLIC [id number] 13:29:00 Test Item Value Reference Range Interpretation [...] CK) Completed by Nursing: NONT PRO-BRAIN NATRIURETIC [id number] 13:29:00 Test Item Value Reference Range Interpretation Comments NT PRO-BRAIN NATRIURETIC PEPTI 1727 PG/ML 0-100 H (test code = PROBNP) Completed by Nursing: [id number] 13:29:00 Test Item Value Reference Range Interpretation [...] yby method. 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42-5.47 N TSHREFLEX) BASIC METABOLIC [id number] 07:28:00 Test Item Value Reference Range Interpretation [...] mg/dL 8.0-10.5 N CA) TSH REFLEX TO [id number] 07:28:00 Test Item Value Reference Range Interpretation Comments TSH REFLEX TO FT4 (test code = IU/mL 0.42-5.47 TSHREFLEX) CBC W/AUTO [id number] 07:23:00 Test Item Value Reference Range Interpretation [...] DIFF REQUIRED (test code NO = MDIFF) [id number] 20:49:00 Test Item Value Reference Range Interpretation Comments GLUBED (test code = 129 MG/DL 70-110 H Performe d by certified GLUBED) 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 [facility] COMPREHENSIVE METABOLIC [id number] 04:33:00 Test Item Value Reference Range Interpretation [...] 0-100 H <100 (test code = LDL) BMQIRPP708 -129 NEAR OPTIMAL/ABOVE [id number] RBNNQCOHLJ678-5 89 HIGH>LK=185 VE RY HIGH*Guidelines provided by the National Ch[employer] terol [employer] m Adult Treatment Panel III CBC W/AUTO [id number] 04:22:00 Test Item Value Reference Range Interpretation [...] (test code NO = MDIFF) CBC W/AUTO [id number] 04:21:00 Test Item Value Reference Range Interpretation [...] MANUAL DIFF REQUIRED (test code = MDIFF) [id number] 00:46:00 Test Item Value Reference Range Interpretation [...] results may suzy y by method. LIPOPROTEIN [id number] 22:00:00 Test Item Value Reference Range Interpretation Comments LIPOPROTEIN LDL 166.8 mg/dL 0-100 H <100 OPT RALW389-738 (test code = LDL) NEAR OPTI MAL/ABOVE [id number] IOSORWTNWW474-3 89 HIGH>MK=793 VE RY HIGH*Guidelines provided by the National [facility] terol [facility] Adult Treatment Panel III [id number] 21:44:00 Test Item Value Reference Range Interpretation [...] titative results may suzy y by method. 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 [facility] UA RFLX MICR CULT IF [id number] 18:05:00 Test Item Value Reference Range Interpretation [...] Indication for culture: Dysuria/FrequencyDRUGS OF ABUSE SCREEN [id number] 18:05:00 Test Item Value Reference Range Interpretation [...] mated code = AMPHETURN) SCcutoff message] T system which generated this result transmit breanne [...] Indication for culture: Dysuria/FrequencyDRUGS OF ABUSE SCREEN [id number] 17:28:00 Test Item Value Reference Range Interpretation Comments URN COCAINE (test code = SCcutoff See_Comment [A utomated message] COCAURN) The system whic [employer] generated this result transmit breanne reference range [...] See_Comment [A utomated message] OPIATURN) The system [employer] generated this result transmit breanne reference range [...] [A utomated message] = METHAURN) The system [employer] generated this result transmit breanne reference range [...] Indication for culture: Dysuria/FrequencyDRUGS OF ABUSE SCREEN [id number] 17:23:00 Test Item Value Reference Range Interpretation Comments URN COCAINE (test code = SCcutoff See_Comment [A utomated message] COCAURN) The system [facility] generated this result transmit breanne reference [...] See_Comment [A utomated message] OPIATURN) The system [employer] generated this result transmit breanne reference range [...] [A utomated message] = METHAURN) The system [employer] generated this result transmit breanne reference range : <300 NG/ML. The reference range was not used to interpret this result as normal/abnormal . Indication for culture: Dysuria/Frequency- CTA CHEST FOR [id number] 16:11:00[facility] : 1965 Sex: M Name: WILMER PARADA [facility] : 1965 Age/S: 55 / M [address] Unit #: [id number] Loc: [place] [address] Phys: NasimIsac DO Acct: [id number] Dis Date: Status: REG ER PHONE #: [phone] Exam Date: 02/04/2021 1540 FAX #: Reason: chest pain EXAMS: CPT: [id number] [place] [address] EXAM: - CTA CHEST FOR PE LOCATION: [...] 1 Signed Report (CONTINUED) Name: WILMER PARADA [facility] : 1965 Age/S: 55 / M [address] Unit #: [id number] Loc: [place] [address] Phys: Isac Rouse DO Acct: [id number] Dis Date: Status: REG ER PHONE #: [phone] Exam Date: 02/04/2021 1540 FAX #: Reason: chest pain EXAMS: CPT: [id number] [place] [address] <Continued> BONES: No acute osseous findings. Mild thoracic texture scoliosis. IMPRESSION: 1. No pulmonary embolism. No acute findings throughout the lungs. 2. Borderline dilated heart chambers. at 1611 Reported and signed by:Luis Rogers D.O. CC: Isac Rouse DO; Afua DARNELL Technologist:Carmen Ruggiero, RT(R) CTDI: DLP: Trnscb Date/Time: 02/04/2021 (1611) tKATELINR.JW22 Orig Print D/T: S: 02/04/2021 (3117) PAGE 2 Signed ReportD-DIMER 2021-02-04 14:30:00 Test Item Value Reference Range Interpretation Comments D-DIMER (test code = DDIMER) 979 ng/mLFEU 215-500 HH BASIC METABOLIC [id number] 14:03:00 Test Item Value Reference Range Interpretation [...] Unit/L 26-192 H CK) Completed by Nursing: [id number] 14:03:00 Test Item Value Reference Range Interpretation Comments TROPONIN-I (test 0.089 NG/ML 0.000-0.045 Negative: < /= 0.045 code = TROPI) Positive: >/= 0.046 Correlation wit h serial results, other cardiac markers, and cl inical findings is nec essary to determine the c linical significance of this result. Quantit ative results using d ifferent methodologies s hould not be compared to one another as nume rical results may suzy yby method. Completed by Nursing: NOCOVID 19 INHOUSE [id number] 13:50:00 Test Item Value Reference Range Interpretation Comments COVID 19 INHOUSE AG NEGATIVE Negative Per manu facturer, (test code = negative result s should [id number]) be treated aspr esumptive and, if inconsi [...] nsistent with COVID-19. - XR CHEST 1 [id number] 13:44:00 [facility] : 1965 Sex: M Name: WILMER PARADA [facility] : 1965 Age/S: 55 / M [address] Unit #: [id number] Loc: [place] [address] Phys: NasimIsac DO Acct: [id number] Dis Date: Status: PRE ER PHONE #: [phone] Exam Date: 02/04/2021 1326 FAX #: Reason: chest pain EXAMS: CPT: [id number] XR CHEST 1 V 40724 Fluoro Time: DAP (Gy m2): Air Kerma [...] PARADA : 1965 Age/S: 55 / M [address] Unit #: [id number] Loc: [place] [address] Phys: Isac Rouse DO Acct: [id number] Dis Date: Status: PRE ER PHONE #: [phone] Exam Date: 02/04/2021 1326 FAX #: Reason: chest pain EXAMS: CPT: [id number] XR CHEST 1 V 20127 Fluoro Time: DAP (Gy m2): Air Kerma (mGy): <Continued> Technologist: Carmen Ruggiero RT(R) Trnscb Date/Time: 02/04/2021 (458) VikramRK5 Orig Print D/T: S: 02/04/2021 (0293) PAGE 2 Signed ReportCBC W/O [id number] 13:36:00 Test Item Value Reference Range Interpretation [...] 10.90 fL 7.0-9.6 H MPV) BASIC METABOLIC [id number] 12:58:00 Test Item Value Reference Range Interpretation [...] CA) 9.0 MG/DL 8.5-10.1 N CBC W/AUTO [id number] 12:51:00 Test Item Value Reference Range Interpretation [...] . [Automated mess age] The system which ge nerated this result tra nsmitted reference range : 0-. The reference range was not used to interpr et this result as normal/abnormal . HDL CHOLESTEROL 39 MG/DL 40-59 L (test code = HDL) NON-HDL CHOLESTEROL 144 mg/dL <130 H (test code = NHDL) LIPOPROTEIN LDL 119 MG/DL 0-129 N <100 GYSJGER733 - (test code = LDL) 129 CELI R OPTIMAL/ABOVE MRSVVVP313 - 15 9 EGIVVCQFRC938 - 189 HIGH>OR= 190 VERY HIGHNOTE THAT G UIDELINES ARE PROVIDED BY NATIONAL CHOLESTEROLEDUC ATION PROGRAM ADULT T REATMENT PANEL III LDL/HDL (test code 3.05 Ratio See_Comment N [Automat ed message] The = LDL/HDL) system which ge nerated this result tra nsmitted reference range : 1.48-3.22 Avg. The reference range was not used to interpr et this result as normal/abnormal . GLYCOSYLATED HEMOGLOBIN [id number] 12:24:00 Test Item Value Reference Range Interpretation Comments GLYCOSYLATED HEMOGLOBIN (HA1C) 5.8 % A1C 0.0-5.7 H (test code = GLYHGB) ESTIMATED AVERAGE GLUCOSE (test 120 MG/DLest code = EAG) GLUCOSE BEDSIDE [id number] 12:05:00 Test Item Value Reference Range Interpretation Comments GLUCOSE BEDSIDE TESTING (test code 151 mg/dL 70-110 H = GLUBED) - XR CHEST 1 [id number] 11:05:00 [facility] : 1965 Sex: M Name: WILMER PARADA [facility] : 1965 Age/S: 55 / M [address] Unit #: [id number] Loc: [place] [address] Phys: Rolando Napier AGACNP Acct: [id number] Dis Date: Status: ADM IN PHONE #: [phone] Exam Date: 01/07/2021 1050 FAX #: Reason: Cough EXAMS: CPT: [id number] XR CHEST 1 V 01849 Fluoro Time: DAP (Gy m2): Air Kerma [...] PAGE 1 Signed Report Name: WILMER PARADA [facility] Cony : 1965 Age/S: 55 / M [address] Unit #: [id number] Loc: [place] [address] Phys: Shea Napier Acct: [id number] Dis Date: Status: ADM IN PHONE #: [phone] Exam Date: 01/07/2021 1050 FAX #: Reason: Cough EXAMS: CPT: [id number] XR CHEST 1 V 22822 Fluoro Time: DAP (Gy m2): Air Kerma (mGy): <Continued> Technologist: Jonna Ramirez RT(R)(MR) Trnscb Date/Time: 01/07/2021 (110) VikramPE1 Orig Print D/T: S: 01/07/2021 (1108) PAGE 2 Signed ReportGLUCOSE BEDSIDE [id number] 08:05:00 Test Item Value Reference Range Interpretation Comments GLUCOSE BEDSIDE TESTING (test code 105 mg/dL 70-110 N = GLUBED) GLUCOSE BEDSIDE [id number] 21:27:00 Test Item Value Reference Range Interpretation Comments GLUCOSE BEDSIDE TESTING (test code 100 mg/dL 70-110 N = GLUBED) GLUCOSE BEDSIDE [id number] 16:40:00 Test Item Value Reference Range Interpretation Comments GLUCOSE BEDSIDE TESTING (test code = 89 mg/dL 70-110 N GLUBED) GLUCOSE BEDSIDE [id number] 12:10:00 Test Item Value Reference Range Interpretation Comments GLUCOSE BEDSIDE TESTING (test code = 94 mg/dL 70-110 N GLUBED) GLUCOSE BEDSIDE [id number] 07:51:00 Test Item Value Reference Range Interpretation Comments GLUCOSE BEDSIDE TESTING (test code 102 mg/dL 70-110 N = GLUBED) GLUCOSE BEDSIDE [id number] 20:30:00 Test Item Value Reference Range Interpretation Comments GLUCOSE BEDSIDE TESTING (test code = 98 mg/dL 70-110 N GLUBED) GLUCOSE BEDSIDE [id number] 15:39:00 Test Item Value Reference Range Interpretation Comments GLUCOSE BEDSIDE TESTING (test code 102 mg/dL 70-110 N = GLUBED) - CT ANGIO [id number] 14:06:00 [facility] 1965 Sex: M Name: WILMER PARADA [facility] : 1965 Age/S: 55 / M [address] Unit #: [id number] Loc: [place] [address] Phys: Anabela Le MD Acct: [id number] Dis Date: Status: ADM IN PHONE #: [phone] Exam Date: 01/05/2021 1335 FAX #: Reason: CVA EXAMS: CPT: [id number] CT ANGIO NECK [address]27 Exam: - CT ANGIO HEAD, - CT [...] 1 Signed Report (CONTINUED) Name: [facility]ILMER PARADA [facility] [facility] 1965 Age/S: 55 / M [address] Unit #: [id number] Loc: [place] [address] Phys: Anabela Le MD Acct: [id number] Dis Date: Status: ADM IN PHONE #: [phone] Exam Date: 01/05/2021 6377 FAX #: Reason: CVA EXAMS: CPT: [id number] CT ANGIO NECK [address] <Continued> visualized fascial planes ofthe neck are [...] 2 Signed Report (CONTINUED) Name: WILMER PARADA : 1965 Age/S: 55 / M [address] Unit #: [id number] Loc: [place] [address] Phys: Anabela Le MD Acct: [id number] Dis Date: Status: ADM IN PHONE #: [phone] Exam Date: 01/05/2021 1438 FAX #: Reason: CVA EXAMS: CPT: [id number] CT ANGIO NECK [address] <Continued> Posterior communicating arteries: Not visualized Distal [...] 3 Signed Report (CONTINUED) Name: WILMER PARADA : 1965 Age/S: 55 / M [address] Unit #: [id number] Loc: [place], [place] [address]Bfas: Anabela Le MD Acct: [id number] Dis Date: Status: ADM IN PHONE #: [phone] Exam Date: 01/05/2021 1332 FAX #: Reason: CVA EXAMS: CPT: [id number] CT ANGIO NECK [address] <Continued> CC: Anabela Le MD; Yared Scott MD Technologist:Gregory Sahni, RT(R)(CT); .. CTDI: DLP: Trnscb Date/Time: 01/05/2021 (1406) [email or web address] Orig Print D/T: S: 01/05/2021 (7131) PAGE 4 Signed Report- CT ANGIO [id number] 14:06:00 [facility] 1965 Sex: M Name: WILMER PARADA [facility] : 1965 Age/S: 55 / M [address] Unit #: [id number] Loc: [place] [address] Phys: Anabela Le MD Acct: [id number] Dis Date: Status: ADM IN PHONE #: [phone] Exam Date: 01/05/2021 1330 FAX #: Reason: CVA EXAMS: CPT: [id number] CT ANGIO HEAD [address] Exam: - CT ANGIO HEAD, - CT [...] PARADA : 1965 Age/S: 55 / M [address] Unit #: [id number] Loc: [place] [address] Phys: Anabela Le MD Acct: [id number] Dis Date: Status: ADM IN PHONE #: [phone] Exam Date: 01/05/2021 1330 FAX #: Reason: CVA EXAMS: CPT: [id number] CT ANGIO HEAD [address] <Continued> visualized fascial planes ofthe neck are [...] 2 Signed Report (CONTINUED) Name: WILMER PARADA [facility] Cony : 1965 Age/S: 55 / M [address] Unit #: [id number] Loc: [place] [address] Phys: Anabela Le MD Acct: [id number] Dis Date: Status: ADM IN PHONE #: [phone] Exam Date: 01/05/2021 1330 FAX #: Reason: CVA EXAMS: CPT: [id number] CT ANGIO HEAD [address] <Continued> Posterior communicating arteries: Not visualized Distal [...] 3 Signed Report (CONTINUED) Name: WILMER PARADA : 1965 Age/S: 55 / M [address] Unit #: [id number] Loc: [place] [address]Zvyy: Anabela Le MD Acct: [id number] Dis Date: Status: ADM IN PHONE #: [phone] Exam Date: 01/05/2021 1330 FAX #: Reason: CVA EXAMS: CPT: [id number] CT ANGIO HEAD [address] <Continued> CC: Anabela Le MD; Yared Scott MD Technologist:Gregory Sahni, RT(R)(CT); .. CTDI: DLP: Trnscb Date/Time: 01/05/2021 (1406) [email or web address] Orig Print D/T: S: 01/05/2021 (1410) PAGE 4 Signed ReportBASIC METABOLIC [id number] 12:38:00 Test Item Value Reference Range Interpretation [...] CA) 9.0 MG/DL 8.5-10.1 N CBC W/AUTO [id number] 12:28:00 Test Item Value Reference Range Interpretation [...] code NO DIFF/SCN CRITERIA = MDIFF) PROTHROMBIN [id number] 12:27:00 Test Item Value Reference Range Interpretation Comments PT PATIENT (test code = PTP) 12.1 SECONDS 9.3-12.9 N INTERNATIONAL NORMAL RATIO 1.08 INR Unit 0.8-1.2 N (test code = INR) THROMBOPLASTIN TIME [id number] 12:27:00 Test Item Value Reference Range Interpretation Comments THROMBOPLASTIN TIME PARTIAL 33.0 SECONDS 26-35 N (test code = PTT) GLUCOSE BEDSIDE [id number] 11:56:00 Test Item Value Reference Range Interpretation Comments GLUCOSE BEDSIDE TESTING (test code 101 mg/dL 70-110 N = GLUBED) - CT HEAD/BRAIN W/O [id number] 11:53:00 [facility] : 1965 Sex: M Name: WILMER PARADA [facility] : 1965 Age/S: 55 / M [address] Unit #: [id number] Loc: [place] [address] Phys: Susan Conway MD Acct: [id number] Dis Date: Status: ADM IN PHONE #: [phone] Exam Date: 01/05/2021 1134 FAX #: Reason: left sided weakness EXAMS: CPT: [id number] CT HEAD/BRAIN W/O CONT 43123 EXAM: CT Head without contrast Location: B2 [...] 1 Signed Report (CONTINUED) Name: WILMER PARADA [facility] : 1965 Age/S: 55 / M [address] Unit #: [id number] Loc: [place] [address] Phys: Susan Conway MD Acct: [id number] Dis Date: Status: ADM IN PHONE #: [phone] Exam Date: 01/05/2021 1131 FAX #: Reason: left sided weakness EXAMS: CPT: [id number] CT HEAD/BRAIN W/O CONT 81770 <Continued> on 01/05/2021 FOR INTERNAL CODING PURPOSES ONLY RESULT CODE: CVR at 1153 Reported and signed by: Diego Paez M.D. CC:Susan Conway MD; Yared Scott MD Technologist:Gregory Sahni, RT(R)(CT); .. CTDI: DLP: Trnscb Date/Time: 01/05/2021 (1153) [email or web address] Orig Print D/T: S: 01/05/2021 (4641) PAGE 2 Signed ReportGLUCOSE BEDSIDE [id number] 07:54:00 Test Item Value Reference Range Interpretation Comments GLUCOSE BEDSIDE TESTING (test code 118 mg/dL 70-110 H = GLUBED) GLUCOSE BEDSIDE [id number] 21:52:00 Test Item Value Reference Range Interpretation Comments GLUCOSE BEDSIDE TESTING (test code = 98 mg/dL 70-110 N GLUBED) GLUCOSE BEDSIDE [id number] 15:47:00 Test Item Value Reference Range Interpretation Comments GLUCOSE BEDSIDE TESTING (test code 124 mg/dL 70-110 H = GLUBED) GLUCOSE BEDSIDE [id number] 11:34:00 Test Item Value Reference Range Interpretation Comments GLUCOSE BEDSIDE TESTING (test code 107 mg/dL 70-110 N = GLUBED) GLUCOSE BEDSIDE [id number] 07:37:00 Test Item Value Reference Range Interpretation Comments GLUCOSE BEDSIDE TESTING (test code 109 mg/dL 70-110 N = GLUBED) BASIC METABOLIC [id number] 04:53:00 Test Item Value Reference Range Interpretation [...] code = CA) 8.7 MG/DL 8.5-10.1 N [id number] 04:53:00 Test Item Value Reference Range Interpretation Comments PHOSPHOROUS (test code = PHOS) 3.8 MG/DL 2.5-4.9 N [id number] 04:53:00 Test Item Value Reference Range Interpretation Comments MAGNESIUM (test code = MAG) 2.1 MG/DL 1.8-2.4 N NT PRO-BRAIN NATRIURETIC [id number] 04:53:00 Test Item Value Reference Range Interpretation Comments NT PRO-BRAIN NATRIURETIC PEPTI 753 PG/ML 0-100 H (test code = PROBNP) BASIC METABOLIC [id number] 04:47:00 Test Item Value Reference Range Interpretation [...] code = CA) 8.7 MG/DL 8.5-10.1 N [id number] 04:47:00 Test Item Value Reference Range Interpretation Comments PHOSPHOROUS (test code = PHOS) MG/DL 2.5-4.9 [id number] 04:47:00 Test Item Value Reference Range Interpretation Comments MAGNESIUM (test code = MAG) 2.1 MG/DL 1.8-2.4 N NT PRO-BRAIN NATRIURETIC [id number] 04:47:00 Test Item Value Reference Range Interpretation Comments NT PRO-BRAIN NATRIURETIC PEPTI (test PG/ML 0-100 code = PROBNP) CBC W/AUTO [id number] 04:34:00 Test Item Value Reference Range Interpretation [...] NO DIFF/SCN CRITERIA = MDIFF) GLUCOSE BEDSIDE [id number] 22:32:00 Test Item Value Reference Range Interpretation Comments GLUCOSE BEDSIDE TESTING (test code = 88 mg/dL 70-110 N GLUBED) GLUCOSE BEDSIDE [id number] 17:59:00 Test Item Value Reference Range Interpretation Comments GLUCOSE BEDSIDE TESTING (test code = 97 mg/dL 70-110 N GLUBED) - XR CHEST 1 [id number] 17:25:00 [facility] : 1965 Sex: M Name: WILMER PARADA [facility] : 1965 Age/S: 55 / M [address] Unit #: [id number] Loc: [place] [address] Phys: Rolando Napier Acct: [id number] Dis Date: Status: ADM IN PHONE #: [phone] Exam Date: 01/03/2021 1518 FAX #: Reason: Dyspnea EXAMS: CPT: [id number] XR CHEST 1 V 63497 Fluoro Time: DAP (Gy m2): Air Kerma [...] Taylor 1 Signed Report Name: WILMER PARADA [facility] : 1965 Age/S: 55 / M [address] Unit #: [id number] Loc: [place] [address] Phys: Rolando Napier AGACNP Acct: [id number] Dis Date: Status: ADM IN PHONE #: [phone] Exam Date: 01/03/2021 1518 FAX #: Reason: Dyspnea EXAMS: CPT: [id number] XR CHEST 1 V 33812 Fluoro Time: DAP (Gy m2): Air Kerma (mGy): <Continued> Technologist: Polly Mcnamara, RT(R)(CT); Nikole Rider, RT(R) Trnscb Date/Time: 01/03/2021 (172) 16 Orig Print D/T: S: 01/03/2021 (0302) PAGE 2 Signed ReportBASIC METABOLIC PANEL 2021-01-03 [...] 8.9 MG/DL 8.5-10.1 N Completed by Nursing: [id number] 14:57:00 Test Item Value Reference Range Interpretation [...] method. Completed by Nursing: NOCOVID 19 INHOUSE [id number] 14:55:00 Test Item Value Reference Range Interpretation Comments COVID 19 INHOUSE AG NEGATIVE Negative Per manu facturer, (test code = negative result s should [id number]) be treated aspr esumptive and, if inconsi [...] co nsistent with COVID-19. Spec Comments: NPROTHROMBIN [id number] 14:54:00 Test Item Value Reference Range Interpretation Comments PT PATIENT (test code = PTP) 11.0 SECONDS 9.3-12.9 N INTERNATIONAL NORMAL RATIO 0.98 INR Unit 0.8-1.2 N (test code = INR) THROMBOPLASTIN TIME [id number] 14:54:00 Test Item Value Reference Range Interpretation Comments THROMBOPLASTIN TIME PARTIAL 30.0 SECONDS 26-35 N (test code = PTT) - CT ANGIO [id number] 14:53:00 [facility] : 1965 Sex: M Name: WILMER PARADA [facility] : 1965 Age/S: 55 / M [address] Unit #: [id number] Loc: [place] [address] Phys: Musa Alfaro DO Acct: [id number] Dis Date: Status: REG ER PHONE #: [phone] Exam Date: 01/03/2021 1425 FAX #: Reason: left sided weakness EXAMS: CPT: [id number] CT ANGIO HEAD 85582 B2 - CT ANGIO NECK, - CT [...] 1 Signed Report (CONTINUED) Name: WILMER PARADA [facility] : 1965 Age/S: 55 / M [address] Unit #: [id number] Loc: [place] [address] Phys: Musa Alfaro DO Acct: [id number] Dis Date: Status: REG ER PHONE #: [phone] Exam Date: 01/03/2021 1425 FAX #: Reason: left sided weakness EXAMS: CPT:[id number] CT ANGIO HEAD [address]94 <Continued> Both posterior cerebral arteries are normal. [...] Rider, RT(R) CTDI: DLP: Trnscb Date/Time: 01/03/2021 (1452) [email or web address] Orig Print D/T: S: 01/03/2021 (5580) PAGE 2 Signed Report- CT ANGIO [id number] 14:53:00 [facility] : 1965 Sex: M Name: WILMER PARADA [facility] : 1965 Age/S: 55 / M [address] Unit #: [id number] Loc: [place] [address] Phys: Musa Alfaro DO Acct: [id number] Dis Date: Status: REG ER PHONE #: [phone] Exam Date: 01/03/2021 2546 FAX #: Reason: left sided weakness EXAMS: CPT: [id number] CT ANGIO NECK 89693 B2 - CT ANGIO NECK, - CT [...] 1 Signed Report (CONTINUED) Name: WILMER PARADA [facility] Cony : 1965 Age/S: 55 / M [address] Unit #: [id number] Loc: [place] [address] Phys: Musa Alfaro DO Acct: [id number] Dis Date: Status: REG ER PHONE #: [phone] Exam Date: 01/03/2021 1429 FAX #: Reason: left sided weakness EXAMS: CPT:[id number] CT ANGIO NECK [address] <Continued> Both posterior cerebral arteries are normal. [...] IMPRESSION: Normal head and neck CTA. at 4771 Reported and signed by: Dagoberto Mayer M.D. CC: Musa Alfaro DO Technologist:Nikole Rider, RT(R) CTDI: DLP: Trnscb Date/Time: 01/03/2021 (8163) VikramVB7 Orig Print D/T: S: 01/03/2021 (9517) PAGE 2 Signed ReportCBC W/O [id number] 14:32:00 Test Item Value Reference Range Interpretation [...] 7.0-9.6 H MPV) - CT HEAD/BRAIN W/O [id number] 14:20:00 [facility] : 1965 Sex: M Name: WILMER PARADA [facility] : 1965 Age/S: 55 / M [address] Unit #: [id number] Loc: [place] [address] Phys: Musa Alfaro DO Acct: [id number] Dis Date: Status: PRE ER PHONE #: [phone] Exam Date: 01/03/2021 1409 FAX #: Reason: Code Stroke EXAMS: CPT: [id number] CT HEAD/BRAIN W/O CONT 60772 EXAMINATION: Head CT without contrast INDICATION: Code stroke COMPARISON: 11/29/2020 LOCATION: S17 TECHNIQUE: Axial noncontrast head CT was performed. Sagittal and coronal reformatted images were created. CT radiation dose optimization is achieved for this examination by the use of a CT protocol in accordance with ACR practice guidelines and adherence to employment counselor recommendations. DLP: 836 mGy-cm. FINDINGS: Mild-moderate supratentorial [...] RT(R)(CT); [place] CTDI: DLP: Trnscb Date/Time: 01/03/2021 (1419) VikramPE1 Orig Print D/T: S: 01/03/2021 (1800) PAGE 1 Signed ReportGLUCOSE BEDSIDE [id number] 11:35:00 Test Item Value Reference Range Interpretation Comments GLUCOSE BEDSIDE TESTING (test code 115 MG/DL 70-119 N = GLUBED) CBC W/AUTO [id number] 09:54:00 Test Item Value Reference Range Interpretation [...] 0.00 K/mm3 0.00-0.05 N NRBC#) RECOLLECTGLUCOSE BEDSIDE [id number] 07:34:00 Test Item Value Reference Range Interpretation Comments GLUCOSE BEDSIDE TESTING (test code 116 MG/DL 70-119 N = GLUBED) BASIC METABOLIC [id number] 06:24:00 Test Item Value Reference Range Interpretation [...] (test code = MG Index/DL The system [employer]) generated this result transmit breanne reference range [...] to interpret this result as normal/abnormal . [id number] 06:24:00 Test Item Value Reference Range Interpretation Comments MAGNESIUM (test code = MAG) 2.3 MG/DL 1.6-2.6 N GLUCOSE BEDSIDE [id number] 20:37:00 Test Item Value Reference Range Interpretation Comments GLUCOSE BEDSIDE TESTING (test code 118 MG/DL 70-119 N = GLUBED) GLUCOSE BEDSIDE [id number] 16:47:00 Test Item Value Reference Range Interpretation Comments GLUCOSE BEDSIDE TESTING (test code 100 MG/DL 70-119 N = GLUBED) GLUCOSE BEDSIDE [id number] 07:44:00 Test Item Value Reference Range Interpretation Comments GLUCOSE BEDSIDE TESTING (test code 121 MG/DL 70-119 H = GLUBED) GLUCOSE BEDSIDE [id number] 19:59:00 Test Item Value Reference Range Interpretation Comments GLUCOSE BEDSIDE TESTING (test code 135 MG/DL 70-119 H = GLUBED) GLUCOSE BEDSIDE [id number] 15:51:00 Test Item Value Reference Range Interpretation Comments GLUCOSE BEDSIDE TESTING (test code = 85 MG/DL 70-119 N GLUBED) - NM MYOCRD SPECT R/S [id number] 13:57:00 [facility] WILMER [facility]ADA : 1965 Sex: M ------- Patient Name: WILMER PARADA Unit No: [id number] EXAMS: CPT CODE: [id number] NM MYOCRD SPECT R/S MULT 18074 Patient was brought to the stress test [...] for processing and reporting. CC: Alexa DELA CRUZ,KIKO,SIVAN Montelongo; Jake Olmos DO EMILY Rao NAME: [employer] PHYS: MARLENEMANN Belcher Alexa Montelongo APRN,[address] : 1965 AGE: 54 SEX: [place] [address] LOC: B.084 W PHONE #: [phone] EXAM DATE: 12/01/2020 STATUS: ADM IN FAX #: [phone] RAD NO: DC Dt: PAGE 1 Signed Report Patient Name: WILMER PARADA Unit No: [id number] EXAMS: CPT CODE: [id number] NM MYOCRD SPECT R/S MULT 48692 <Continued> Technologist: Macy Sepulveda Transcribed Date/Time: 12/03/2020 (2961)- [email or web address] Orig Print D/T: S: 12/03/2020 (1400) EMILY Rao NAME: [employer] PHYS: BEAR Ye Alexa Montelongo APRN,[address] : 1965 AGE: 54 SEX: [place] [address] LOC: B.562 W PHONE #: [phone] EXAM DATE: 12/01/2020 STATUS: ADM IN FAX #: [phone] RAD NO: DC Dt: PAGE 2 Signed ReportGLUCOSE BEDSIDE [id number] 11:46:00 Test Item Value Reference Range Interpretation Comments GLUCOSE BEDSIDE TESTING (test code 114 MG/DL 70-119 N = GLUBED) [id number] 07:43:00 Test Item Value Reference Range Interpretation Comments CKMB (test code = 1.1 NG/ML 1.0-3.6 N MONOCLONAL CKMB CKMBT) METHODOLOGY. [id number] 07:43:00 Test Item Value Reference Range Interpretation [...] changes in trop onin levelscharacter istic of [place]. GLUCOSE BEDSIDE [id number] 07:35:00 Test Item Value Reference Range Interpretation Comments GLUCOSE BEDSIDE TESTING (test code 104 MG/DL 70-119 N = GLUBED) [id number] 07:24:00 Test Item Value Reference Range Interpretation Comments CKMB (test code = CKMBT) NG/ML 1.0-3.6 [id number] 07:24:00 Test Item Value Reference Range Interpretation [...] of temporal changes in trop onin levelscharacter [facility] [place]. BASIC METABOLIC [id number] 06:50:00 Test Item Value Reference Range Interpretation [...] message] (test code = Index/DL The system [employer] HEMINDEX) generated this result transmit breanne reference [...] to interpret this result as normal/abnormal . [id number] 06:50:00 Test Item Value Reference Range Interpretation Comments MAGNESIUM (test code = MAG) 2.2 MG/DL 1.6-2.6 N BASIC METABOLIC [id number] 06:24:00 Test Item Value Reference Range Interpretation [...] message] (test code = Index/DL The system [employer]) generated this result transmit breanne reference range [...] to interpret this result as normal/abnormal . [id number] 06:24:00 Test Item Value Reference Range Interpretation Comments MAGNESIUM (test code = MAG) MG/DL 1.6-2.6 GLUCOSE BEDSIDE [id number] 19:35:00 Test Item Value Reference Range Interpretation Comments GLUCOSE BEDSIDE TESTING (test code 130 MG/DL 70-119 H = GLUBED) GLUCOSE BEDSIDE [id number] 16:35:00 Test Item Value Reference Range Interpretation Comments GLUCOSE BEDSIDE TESTING 103 MG/DL 70-119 N Noti fied Nurse~ (test code = GLUBED) GLUCOSE BEDSIDE [id number] 12:00:00 Test Item Value Reference Range Interpretation Comments GLUCOSE BEDSIDE TESTING 128 MG/DL 70-119 H Noti fied Nurse~ (test code = GLUBED) GLUCOSE BEDSIDE [id number] 08:28:00 Test Item Value Reference Range Interpretation Comments GLUCOSE BEDSIDE TESTING 123 MG/DL 70-119 H Noti fied Nurse~ (test code = GLUBED) GLUCOSE BEDSIDE [id number] 19:40:00 Test Item Value Reference Range Interpretation Comments GLUCOSE BEDSIDE TESTING (test code = 84 MG/DL 70-119 N GLUBED) GLUCOSE BEDSIDE [id number] 16:53:00 Test Item Value Reference Range Interpretation Comments GLUCOSE BEDSIDE TESTING 100 MG/DL 70-119 N Noti fied Nurse~ (test code = GLUBED) GLUCOSE BEDSIDE [id number] 13:00:00 Test Item Value Reference Range Interpretation Comments GLUCOSE BEDSIDE TESTING (test code 128 MG/DL 70-119 H = GLUBED) GLUCOSE BEDSIDE [id number] 08:35:00 Test Item Value Reference Range Interpretation Comments GLUCOSE BEDSIDE TESTING (test code = 95 MG/DL 70-119 N GLUBED) GLUCOSE BEDSIDE [id number] 19:49:00 Test Item Value Reference Range Interpretation Comments GLUCOSE BEDSIDE TESTING (test code 117 MG/DL 70-119 N = GLUBED) GLUCOSE BEDSIDE [id number] 16:52:00 Test Item Value Reference Range Interpretation Comments GLUCOSE BEDSIDE TESTING (test code 103 MG/DL 70-119 N = GLUBED) GLUCOSE BEDSIDE [id number] 12:30:00 Test Item Value Reference Range Interpretation Comments GLUCOSE BEDSIDE TESTING (test code 121 MG/DL 70-119 H = GLUBED) GLUCOSE BEDSIDE [id number] 07:43:00 Test Item Value Reference Range Interpretation Comments GLUCOSE BEDSIDE TESTING (test code = 96 MG/DL 70-119 N GLUBED) COMPREHENSIVE METABOLIC [id number] 05:53:00 Test Item Value Reference Range Interpretation [...] (test code = MG Index/DL The system compa h HEMINDEX) generated this result transmit breanne reference [...] may be code = TRIG) depressed if mann chávez is takingN-Acetylc ystei ne (NAC) and [...] s maybe code = HDL) depressed if mann chávez is taking Metamizole(Dipy vik) . NON-HDL [...] ave rage [Automated mess age] The system [employer] generated this result transmit breanne reference range : 1.48-3.22 Avg. The reference range was not used to interpret this result as normal/abnormal . [id number] 05:53:00 Test Item Value Reference Range Interpretation Comments MAGNESIUM (test code = MAG) 2.2 MG/DL 1.6-2.6 N COMPREHENSIVE METABOLIC [id number] 05:38:00 Test Item Value Reference Range Interpretation [...] [Auto mated code = ICTINDEX) Index/DL message] Th e system which generated [...] See_Comment [Autom ated message] LDL/HDL) The system [employer] h generated this result transmitted ref erence range: 1.48-3.2 2 Avg. The reference r marino was not used to interpret this result as normal/abnor mal. [id number] 05:38:00 Test Item Value Reference Range Interpretation Comments MAGNESIUM (test code = MAG) MG/DL 1.6-2.6 GLYCOSYLATED HEMOGLOBIN (HA1C)2020-11-30 05:21:00 Test Item Value Reference Range Interpretation Comments GLYCOSYLATED HEMOGLOBIN (HA1C) 5.9 % IS-A1C 4.5-5.6 H (test code = GLYHGB) Specimen comments: use blood sample in the labComments to Armature Balancer: use blood sample in the labCBC W/AUTO [id number] 05:12:00 Test Item Value Reference Range Interpretation [...] code = 0.00 K/mm3 0.00-0.05 N NRBC#) [id number] 00:17:00 Test Item Value Reference Range Interpretation Comments CKMB (test code = 1.4 NG/ML 1.0-3.6 N MONOCLONAL CKMB CKMBT) METHODOLOGY. [id number] 00:17:00 Test Item Value Reference Range Interpretation [...] changes in trop onin levelscharacter istic of [place]. [id number] 23:57:00 Test Item Value Reference Range Interpretation Comments CKMB (test code = CKMBT) NG/ML 1.0-3.6 [id number] 23:57:00 Test Item Value Reference Range Interpretation [...] changes in trop onin levelscharacter [place]tic of [place]. GLUCOSE BEDSIDE [id number] 20:50:00 Test Item Value Reference Range Interpretation Comments GLUCOSE BEDSIDE TESTING (test code 126 MG/DL 70-119 H = GLUBED) [id number] 20:10:00 Test Item Value Reference Range Interpretation Comments CKMB (test code = 1.6 NG/ML 1.0-3.6 N MONOCLONAL CKMB CKMBT) METHODOLOGY. [id number] 20:10:00 Test Item Value Reference Range Interpretation [...] changes in trop onin levelscharacter [place]tic of [place]. [id number] 19:57:00 Test Item Value Reference Range Interpretation Comments CKMB (test code = CKMBT) NG/ML 1.0-3.6 [id number] 19:57:00 Test Item Value Reference Range Interpretation [...] changes in trop onin levelscharacter istic of [place]. COVID 19 Asymptomatic IH [id number] 18:32:00 Test Item Value Reference Range Interpretation Comments COVID 19 Asymptomatic IH AG (test Negative Neg code = COVNONPUIAG) - CT ANGIO [id number] 17:08:00 [facility] WIL[facility]ADA : 1965 Sex: M Patient Name: WILMER PARADA Unit No: [id number] EXAMS: CPT CODE: [id number] CT ANGIO HEAD [address] Dictation location: H37. CT ANGIOGRAM OF THE NECK AND HEAD WITH IV CONTRAST; MIP AND 3-D RECONSTRUCTIONS HISTORY: Left sided weakness COMPARISON: None TECHNIQUE: Axial CT images of the neck and head were obtained with coronal and/or sagittal reformatted views. MIP and/or 3-D reconstruction were obtained of the carotid arteries in the neck and ruby of [place]. Automated exposure control, iterative reconstruction [...] is limited. No definite occlusion or aneurysm. [facility] Pedro Pablo NAME: WILMER PARADA [address] [place] [address] PHYS: Jake Benjamin, [place] [address] : 1965 AGE: 54 SEX: M LOC: LISA PHONE #: [phone] EXAM DATE: 11/29/2020 STATUS: REG ER FAX #: [phone] RAD #: D/C DT PAGE 1 Signed Report (CONTINUED) Patient Name: WILMER PARADA Unit No: [id number] EXAMS: CPT CODE: [id number] CT ANGIO HEAD [address] <Continued> at 1708 Reported and signed by: Uriah Moran MD CC: Jake Olmos DO Dictated Date/Time: 11/29/2020 (1708) Technologist: Luisana Mederos CTDI: 73.04 DLP: 2044.21 Trnscrpt: 11/29/2020 (1708) [email or web address] EMILY Rao NAME: [facility] PHYS: Jake Benjamin, [place] [address] : 1965 AGE: 54 SEX: M LOC: B.ERS PHONE #: [phone] EXAM DATE: 11/29/2020 STATUS: REG ER FAX #: [phone] RAD #: D/C DT PAGE 2 Signed Report Patient Name: WILMER PARADA Unit No: [id number] EXAMS: CPT CODE: [id number] CT ANGIO HEAD [address] <Continued> Orig Print D/T: S: 11/29/2020 (1711) EMILY Darrow NAME: [facility] PHYS: Jake Benjamin, [place] [address] : 1965 AGE: 54 SEX: M LOC: B.ERS PHONE #: [phone] EXAM DATE: 11/29/2020 STATUS: REG ER FAX #: [phone] RAD #: D/C DT PAGE 3 Signed Report- CT ANGIO [id number] 17:08:00 [facility] HECTORROEName: WILMER PARADA : 1965 Sex: M Patient Name: WILMER PARADA Unit No: [id number] EXAMS: CPT CODE: [id number] CT ANGIO NECK [id number] Dictation location: H37. CT ANGIOGRAM OF THE NECK AND HEAD WITH IV CONTRAST; MIP AND 3-D RECONSTRUCTIONS HISTORY: Left sided weakness COMPARISON: None TECHNIQUE: Axial CT images of the neck and head were obtained with coronal and/or sagittal reformatted views. MIP and/or 3-D reconstruction were obtained of the carotid arteries in the neck and ruby of [place]. Automated exposure control, iterative reconstruction [...] is limited. No definite occlusion or aneurysm. [facility] [facility] Pedro Pablo NAME: WILMER PARADA [address] [place] [address] PHYS: ARVIN NickolasJake, [place] [address] : 1965 AGE: 54 SEX: M LOC: LISA PHONE #: [phone] EXAM DATE: 11/29/2020 STATUS: REG ER FAX #: [phone] RAD #: D/C DT PAGE 1 Signed Report (CONTINUED) Patient Name: WILMER PARADA Unit No: [id number] EXAMS: CPT CODE: [id number] CT ANGIO NECK 43376 <Continued> at 1708 Reported and signed by: Uriah Moran MD CC: Jake Olmos DO Dictated Date/Time: 11/29/2020 (1707) Technologist: Luisana Mederos CTDI: 0 DLP: 0 Trnscrpt: 11/29/2020 (1707) [email or web address] EMILY Rao NAME: T[address] PHYS: ARVIN.Dinesh NickolasJake Navarro [place] [address] : 1965 AGE: 54 SEX: M LOC: [email or web address][employer] PHONE #: [phone] EXAM DATE: 11/29/2020 STATUS: REG ER FAX #: [phone] RAD #: D/C DT PAGE 2 Signed Report Patient Name: WILMER PARADA Unit No: [id number] EXAMS: CPT CODE: [id number] CT ANGIO NECK 07612 <Continued> Orig Print D/T: S: 11/29/2020 (3780) EVERNoreen Pedro Pablo NAME: T[address] PHYS: RADAMES NickolasJake [place] [address] : 1965 AGE: 54 SEX: M LOC: B.ERS PHONE #: [phone] EXAM DATE: 11/29/2020 STATUS: REG ER FAX #: [phone] RAD #: D/C DT PAGE 3 Signed Report- XR CHEST 1 [id number] 11:48:00 [facility] 1965 Sex: M Name: WILMER PARADA [place] : 1965 Age/S: 54 / M [address] Unit #: [id number] Loc: [place] [address] Phys: Maximino Ham MD Acct: [id number] Dis Date: Status: REG ER PHONE #: [phone] Exam Date: 11/29/2020 1108 FAX #: Reason: chest pain, stroke symptoms EXAMS: CPT: [id number] XR CHEST 1 V 94498 Fluoro Time: DAP (Gy m2): Air Kerma [...] PAGE 1 Signed Report Name: WILMER PARADA [place] : 1965 Age/S: 54 / M [address] Unit #: [id number] Loc: [place] [address] Phys: Maximino Ham MD Acct: [id number] Dis Date: Status: REG ER PHONE #: [phone] Exam Date: 11/29/2020 1108 FAX #: Reason: chest pain, stroke symptoms EXAMS: CPT: [id number] XR CHEST 1 V 77721 Fluoro Time: DAP (Gy m2): Air Kerma (mGy): <Continued> Technologist: Bandar Tirado, RT(R)(CT) Trnscb Date/Time: 11/29/2020 (1149) [email or web address] Orig Print D/T: S: 11/29/2020 (9290) PAGE 2 Signed Report- CT ABD PELVIS W/[id number] 11:20:00 [facility] : 1965 Sex: M Name: WILMER PARADA [facility] : 1965 Age/S: 54 / M [address] Unit #: [id number] Loc: [place] [address] Phys: Maximino Ham MD Acct: [id number] Dis Date: Status: REG ER PHONE #: [phone] Exam Date: 11/29/2020 1046 FAX #: Reason: rule out dissection EXAMS: CPT: [id number] CT ABD PELVIS W/CONT 92186 LOCATION: T18 EXAM: CT CHEST WITH CONTRAST [...] 1 Signed Report (CONTINUED) Name: WILMER PARADA [facility] : 1965 Age/S: 54 / M [id number] Unit #: [id number] Loc: [place] [address] Phys: Maximino Ham MD Acct: [id number] Dis Date: Status: REG ER PHONE #: [phone] Exam Date: 11/29/2020 1046 FAX #: Reason: rule out dissection EXAMS: CPT: [id number] CT ABD PELVIS W/CONT 47272 <Continued> at 1120 Reported and signed by: Bill Lake M.D. CC: Maximino Ham MD Technologist:Gala Menard, RT(R); Nikole CTDI: DLP: Trnscb Date/Time: 11/29/2020 (1120) [email or web address] Orig Print D/T: S: 11/29/2020 (1123) PAGE 2 Signed Report- CT CHEST W/CONTRAST 2020-11-29 11:20:00 [facility] : 1965 Sex: M Name: WILMER PARADA [facility] : 1965 Age/S: 54 / M [address] Unit #: [id number] Loc: [place] [address] Phys: Maximino Ham MD Acct: [id number] Dis Date: Status: REG ER PHONE #: [phone] Exam Date: 11/29/2020 1050 FAX #: Reason: rule out dissection EXAMS: CPT: [id number] CT CHEST W/CONTRAST 44197 LOCATION: T18 EXAM: CT CHEST WITH CONTRAST [...] 1 Signed Report (CONTINUED) Name: WILMER PARADA [facility] : 1965 Age/S: 54 / M [address] Unit #: [id number] Loc: [place] [address] Phys: Maximino Ham MD Acct: [id number] Dis Date: Status: REG ER PHONE #: [phone] Exam Date: 11/29/2020 1056 FAX #: Reason: rule out dissection EXAMS: CPT: [id number] CT CHEST W/CONTRAST 03582 <Continued> at 1120 Reported and signed by: Bill Lake M.D. CC: Maximino Ham MD Technologist:Gala Menard, RT(R); Nikole CTDI: DLP: Trnscb Date/Time: 11/29/2020 (1119) [email or web address] Orig Print D/T: S: 11/29/2020 (1123) PAGE 2 Signed Report- CT HEAD/BRAIN W/O CONT 2020-11-29 11:15:00 [facility] : 1965 Sex: M Name: WILMER PARADA [facility] : 1965 Age/S: 54 / M [address] Unit #: [id number] Loc: [place] [address] Phys: Maximino Ham MD Acct: [id number] Dis Date: Status: REG ER PHONE #: [phone] Exam Date: 11/29/2020 1045 FAX #: Reason: CVA symptoms EXAMS: CPT: [id number] CT HEAD/BRAIN W/O CONT 18373 EX AM: - CT HEAD/BRAIN W/O CONT [...] RT(R) CTDI: DLP: Trnscb Date/Time: 11/29/2020 (1115) [email or web address] Orig Print D/T: S: 11/29/2020 (1118) PAGE 1 Signed ReportCOMPREHENSIVE METABOLIC [id number] 10:03:00 Test Item Value Reference Range Interpretation [...] N code = ALKP) Completed by Nursing: [id number] 10:03:00 Test Item Value Reference Range Interpretation [...] yby method. Completed by Nursing: NOCBC W/AUTO [id number] 09:45:00 Test Item Value Reference Range Interpretation [...]
[2021-04-12 19:05] LABS: Absolute Lymphocytes (CBC) 1.7 K/uL (0.7-4.9); Basophils % 1.1 % (0-1.3); Hematocrit 35.8 % (39.6-49.0); Lymphocytes % 33.8 % (15.3-44.8); MPV 8.7 fL (7.6-11.3); RBC Red Blood Cell Count 4.55 M/uL (4.33-5.43)
[2021-04-12 19:16] LABS: Protime INR 1.12
[2021-04-12 19:27] LABS: ALT/SGPT 29 U/L (12-78); AST/SGOT 27 U/L (15-37); Albumin 3.2 g/dL (3.4-5.0); Alkaline Phosphatase 53 U/L (45-117); BUN Blood Urea Nitrogen 29 mg/dL (7-18); Bicarbonate 25 mmol/L (21-32); Bilirubin Direct < 0.1 mg/dL (0-0.2); Bilirubin Total 0.3 mg/dL (0.2-1.0); Glucose Level 91 mg/dL (74-106); Magnesium 1.8 mg/dL (1.8-2.4); NT PRO-BNP 1517 pg/mL (<125); Potassium 3.7 mmol/L (3.5-5.1); Protein, Total 7.2 g/dL (6.4-8.2); Sodium Level 140 mmol/L (136-145); Troponin (Emerg Dept Use Only) < 0.02 ng/mL (0.0-0.045)
--- NOTE | 2021-04-12 20:07 | RAD REPORT ---
EXAM DESCRIPTION: RAD - Chest Single View - 04/12/2021 7:34 pm CLINICAL HISTORY: CHEST PAIN COMPARISON: Portable March 11 TECHNIQUE: AP portable chest image was obtained 04/12/2021 7:34 pm . FINDINGS: Exam is limited by large body habitus portable technique. No dense mass or consolidation s een. Retrocardiac left base assessment is limited by body habitus and film techniques. Defibrillator overlies the lateral left chest. Right-sided central line has been placed since prior imaging. Cardiomegaly is present. No abnormal vascular engorgement seen. No measurable pleural effusion and n o pneumothorax. No acute bony abnormality seen. No acute aortic findings suspected. IMPRESSION: Limited portable study without acute cardiopulmonary finding.
--- NOTE | 2021-04-12 21:09 | EDPHYS ---
Physician Documentation [facility] Name: Bryan Watts Age: 55 yrs Sex: Male : 1965 Arrival Date: 04/12/2021 Time: 18:36 Bed 5 Private MD: ED Physician Adi Hyde HPI: 04/13 03:17 This 55 yrs old Black Male presents to ER via EMS with complaints of Chest Pain. tw4 03:17 The patient or guardian reports chest pain that is located primarily in the anterior tw4 chest wall. Onset: today. The pain does not radiate. Associated signs and symptoms: The patient has no apparent associated signs or symptoms. The chest pain is described as dull. Duration: The patient or guardian reports a single episode. Modifying factors: The symptoms are alleviated by nothing. the symptoms are aggravated by nothing. Severity of pain: At its worst the pain was moderate in the emergency department the pain is unchanged. The patient has not experienced similar symptoms in the past. Historical: - Allergies: 04/12 18:44 No Known Allergies; ss - PMHx: 18:44 Diabetes - IDDM; Hyperlipidemia; Hypertension; ss - PSHx: 18:44 Pace maker; ss - Immunization history:: Client reports having NOT received the Covid vaccine. - Social history:: Smoking status: Patient denies any tobacco usage or history of. ROS: 04/13 03:17 Constitutional: Negative for fever, chills, and weight loss, Eyes: Negative for injury, tw4 pain, redness, and discharge, Respiratory: Negative for shortness of breath, cough, wheezing, and pleuritic chest pain, Abdomen/GI: Negative for abdominal pain, nausea, vomiting, diarrhea, and constipation, Back: Negative for injury and pain, MS/Extremity: Negative for injury and deformity, Skin: Negative for injury, rash, and discoloration, Neuro: Negative for headache, weakness, numbness, tingling, and seizure. Cardiovascular: Positive for chest pain, Negative for edema, orthopnea, palpitations, paroxysmal nocturnal dyspnea. Exam: 03:17 Constitutional: This is a well developed, well nourished patient who is awake, alert, tw4 and in no acute distress. Head/Face: Normocephalic, atraumatic. Chest/axilla: Normal chest wall appearance and motion. Nontender with no deformity. No lesions are appreciated. Cardiovascular: Regular rate and rhythm with a normal S1 and S2. No gallops, murmurs, or rubs. Normal PMI, no JVD. No pulse deficits. Respiratory: Lungs have equal breath sounds bilaterally, clear to auscultation and percussion. No rales, rhonchi or wheezes noted. No increased work of breathing, no retractions or nasal flaring. Abdomen/GI: Soft, non-tender, with normal bowel sounds. No distension or tympany. No guarding or rebound. No evidence of tenderness throughout. Back: No spinal tenderness. No costovertebral tenderness. Full range of motion. Skin: Warm, dry with normal turgor. Normal color with no rashes, no lesions, and no evidence of cellulitis. MS/ Extremity: Pulses equal, no cyanosis. Neurovascular intact. Full, normal range of motion. Neuro: Awake and alert, GCS 15, oriented to person, place, time, and situation. Cranial nerves II-XII grossly intact. Motor strength 5/5 in all extremities. Sensory grossly intact. Cerebellar exam normal. Normal gait. Psych: Awake, alert, with orientation to person, place and time. Behavior, mood, and affect are within normal limits. Vital Signs: 04/12 18:41 BP 113 / 75; Pulse 98; Resp 18; Temp 98.9(O); Pulse Ox 100% on R/A; Weight 127.46 kg; ss Height 6 ft. 2 in. (187.96 cm); Pain 2/10; 18:41 Body Mass Index 36.08 (127.46 kg, 187.96 cm) MDM: 21:07 Patient medically screened. tw4 04/13 03:19 Data reviewed: vital signs, nurses notes. Data interpreted: Pulse oximetry:. tw4 Counseling: I had a detailed discussion with the patient and/or guardian regarding: the historical points, exam findings, and any diagnostic results supporting the discharge/admit diagnosis. Special discussion: I discussed with the patient/guardian in detail that at this point there is no indication for admission to the hospital. It is understood, however, that if the symptoms persist or worsen the patient needs to return immediately for re-evaluation. 04/12 18:39 Order name: Basic Metabolic Panel 04/12 18:39 Order name: CBC with Diff 04/12 18:39 Order name: LFT's; Complete Time: 21:04 04/12 18:39 Order name: Magnesium; Complete Time: 21:04 04/12 21:06 Interpretation: Within normal limits: MG 1.8. tw4 04/12 18:39 Order name: NT PRO-BNP; Complete Time: 21:04 04/12 18:39 Order name: PT-INR; Complete Time: 21:04 04/12 18:39 Order name: Troponin (emerg Dept Use Only); Complete Time: 21:04 04/12 21:06 Interpretation: Within normal limits: TROPED < 0.02. tw4 04/12 18:40 Order name: Basic Metabolic Panel; Complete Time: 21:04 EDKS 04/12 18:40 Order name: CBC with Automated Diff; Complete Time: 21:04 EDKS 04/12 21:05 Interpretation: Normal except: MCH 25.6; MCV 78.7; HCT 35.8; RDW 16.8. [facility] 04/12 21:16 Order name: COVID-19 : Document "Date of Symptom Onset" if Symptomatic. tt3 04/13 02:59 Order name: SARS-COV-2 RT PCR EDKS 04/13 03:36 Order name: Troponin I EDKS 04/13 06:15 Order name: CBC with Automated Diff EDKS 04/13 06:26 Order name: Comprehensive Metabolic Panel EDKS 04/12 18:39 Order name: XRAY Chest (1 view); Complete Time: 21:04 04/12 21:06 Interpretation: No acute disease. tw4 04/12 18:39 Order name: EKG; Complete Time: 18:40 ss 04/12 18:39 Order name: Cardiac monitoring; Complete Time: 18:54 ss 04/12 18:39 Order name: EKG - Nurse/Tech; Complete Time: 18:54 04/12 18:39 Order name: IV Saline Lock; Complete Time: 18:54 04/12 18:39 Order name: Labs collected and sent; Complete Time: 18:54 04/13 00:29 Order name: CONS Physician Consult EDKS 04/13 06:26 Order name: Phosphorus EDKS 04/13 06:26 Order name: T4 Free EDKS 09/11 06:26 Order name: Magnesium EDKS 04/13 06:26 Order name: Thyroid Stimulating Hormone EDKS 04/13 06:26 Order name: Transferrin Sat/Iron Binding EDKS 04/13 06:26 Order name: Ferritin EDKS 04/13 07:31 Order name: Troponin I EDKS 04/13 08:46 Order name: Glucose, Ancillary Testing EDKS 04/13 12:14 Order name: Glucose, Ancillary Testing EDKS 04/12 18:39 Order name: O2 Per Protocol; Complete Time: 18:54 ss 04/12 18:39 Order name: O2 Sat Monitoring; Complete Time: 18:54 ss EC:28 Rate is 97 beats/min. Rhythm is regular. QRS [place] is Normal. NH interval is normal. QRS tw4 interval is normal. QT interval is normal. No Q waves. T waves are Inverted in leads V1, V2. No ST changes noted. Clinical impression: Abnormal EKG without significant change. Interpreted by me. Reviewed by me. Administered Medications: No medications were administered Disposition Summary: 04/12/21 21:07 Hospitalization Ordered Hospitalization Status: Observation tw4 Provider: Izaiah Cardona [place] Condition: Stable tw4 Problem: new tw4 Symptoms: have improved tw4 Bed/Room Type: Standard tw4 Location: Telemetry/MedSurg (observation)(04/13/21 13:17) Room Assignment: [facility](04/13/21 13:17) Diagnosis - Chest pain, unspecified tw4 Forms: - Medication Reconciliation Form tw4 - SBAR form tw4 Signatures: Dispatcher [employer] [facility] Krystina Mckeon RN RN mw Woody, Diana, RN RN dw Smirch, Shelby, RN RN ss Wadley, Terrence, MD MD tw4 Corrections: (The following items were deleted from the chart) 04/12 18:44 18:44 PMHx: Diabetes - NIDDM; [facility] 04/13 03:18 04/12 21:07 Telemetry/MedSurg (observation) tw4 04/13 03:18 04/12 21:07 [facility] 04/13 13:17 03:18 BR ER HOLD [facility] 13:17 03:18 ERHOLD- [facility]
--- NOTE | 2021-04-12 21:09 | ER ---
Nurse's Notes [facility] Name: Bryan Watts Age: 55 yrs Sex: Male : 1965 Arrival Date: 04/12/2021 Time: 18:36 Bed 5 Private MD: Diagnosis: Chest pain, unspecified Presentation: 04/12 18:41 Chief complaint: EMS states: Chest pain that began at 5 pm this evening. EMS ss administered 324 mg ASA en route to ED as well as Nitro 0.4 SL. PT reports pain decreased to 2/10. Recently released from [facility]. 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 Coronavirus screen: Client denies travel out of the [place] in the last 14 days. Ebola Screen: Patient denies exposure to infectious person. Patient denies travel to an Ebola-affected area in the 21 days before illness onset. Initial Sepsis Screen: Does the patient meet any 2 criteria? No. Patient's initial sepsis screen is negative. Does the patient have a suspected source of infection? No. Patient's initial sepsis screen is negative. Risk Assessment: Do you want to hurt yourself or someone else? Patient reports no desire to harm self or others. Onset of symptoms was April 12, 2021. 18:41 Method Of Arrival: EMS: [facility] ss 18:41 Acuity: GABBY 2 ss Historical: - Allergies: 18:44 No Known Allergies; ss - PMHx: 18:44 Diabetes - IDDM; Hyperlipidemia; Hypertension; ss - PSHx: 18:44 Pace maker; ss - Immunization history:: Client reports having NOT received the Covid vaccine. - Social history:: Smoking status: Patient denies any tobacco usage or history of. Screenin:45 Abuse screen: Denies threats or abuse. Denies injuries from another. Nutritional ss screening: No deficits noted. Tuberculosis screening: No symptoms or risk factors identified. Never had TB. Fall Risk None identified. Assessment: 18:55 General: Appears in no apparent distress. Behavior is calm, cooperative. Pain: Pain hb currently is 3 out of 10 on a pain scale. Neuro: Level of Consciousness is awake, alert, obeys commands, Oriented to person, place, situation. Cardiovascular: Reports chest pain, Patient's skin is warm and dry. Respiratory: Respiratory effort is even, unlabored, Respiratory pattern is regular, symmetrical. GI: No signs and/or symptoms were reported involving the gastrointestinal system. : No signs and/or symptoms were reported regarding the genitourinary system. EENT: No signs and/or symptoms were reported regarding the EENT system. Derm: Skin is pink, warm \\T\\ dry. Musculoskeletal: No signs and/or symptoms reported regarding the musculoskeletal system. Vital Signs: 18:41 BP 113 / 75; Pulse 98; Resp 18; Temp 98.9(O); Pulse Ox 100% on R/A; Weight 127.46 kg; Height 6 ft. 2 in. (187.96 cm); Pain 2/10; 18:41 Body Mass Index 36.08 (127.46 kg, 187.96 cm) ED Course: 18:36 Patient arrived in ED. 18:44 Triage completed. 18:44 Arm band placed on right wrist. 18:45 Patient has correct armband on for positive identification. Bed in low position. Call light in reach. monitoring coordinator on. Pulse ox on. NIBP on. 18:45 Patient maintains SpO2 saturation greater than 95% on room air. 18:50 EKG done, by ED staff, reviewed by Ze Buckner MD. 3 18:56 Maintain EMS IV. Dressing intact. Good blood return noted. Site clean \\T\\ dry. Gauge \\T\\ hb site: 20 LEFT FA. 19:21 Adi Hyde MD is Attending Physician. tw4 19:34 XRAY Chest (1 view) In Process Unspecified. EDMS 21:07 Izaiah Cardona is Hospitalizing Provider. tw4 04/13 02:58 Dena Fang, SAMUEL is Primary Nurse. bs2 02:58 COVID-19 : Document "Date of Symptom Onset" if Symptomatic. Sent. bs2 02:58 Basic Metabolic Panel Sent. bs2 02:58 CBC with Diff Sent. bs2 Administered Medications: No medications were administered Outcome: 04/12 21:07 Decision to Hospitalize by Provider. tw4 04/13 14:46 Patient left the ED. Signatures: Dispatcher [employer] EDNC Susi Mackenzie RN RN Robyn Lake RN RN hb Herrera, Deanna dh3 Adi Hyde MD MD tw4 Dena Fang RN RN bs2 Corrections: (The following items were deleted from the chart) 04/12 18:44 18:44 PMHx: Diabetes - NIDDM; ss ss
--- NOTE | 2021-04-13 01:28 | P.HP ---
Certification for Inpatient Patient admitted to: Observation With expected LOS: <2 Midnights Patient will require the following post-hospital care: None Practitioner: I am a practitioner with admitting privileges, knowledge of patient current condition, hospital course, and medical plan of care. Services: Services provided to patient in accordance with Admission requirements found in Title 42 Section 412.3 of the Code of Federal Regulations Patient History Date of Service: 04/13/21 Reason for admission: chest pain History of Present Illness: Mr. Watts is a 55 yo M with DM, HLD, HTN, CAD s/p 8 stents, CHF s/p pacemaker, 05/12 stabbing sternal chest pain with onset during exertion yesterday at 5pm, relieved with aspirin and nitroglycerin. Denies lightheadedness, nausea, vomiting. He was recently discharged from [facility] with a milrinone infusion via R subclavian central line. 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 At bedside, he is asymptomatic and resting. CXR with no acute findings. Initial troponin wnl. Allergies No Known Allergies Allergy (Uncoded 02/18/18 16:57) Unknown Home Medications: Amlodipine Besylate 10 mg PO DAILY 05/27/12 Metformin HCl [Glucophage*] 500 mg PO DAILY 10/18/15 Nitroglycerin 0.4 mg SL PRN 10/19/15 Hydralazine [Apresoline*] 100 mg PO QID 01/28/17 Doxazosin [Cardura*] 2 mg PO BID #60 tab 01/29/17 Furosemide [Lasix*] 40 mg PO DAILY #30 tab 01/29/17 lisinopriL [Prinivil*] 40 mg PO DAILY #60 tab 11/18/18 - Past Medical/Surgical History Diabetic: Yes -: DM -: HTN -: CAD -: Coronary artery stent -: CHF -: RIGHT KNEE SX -: ARTIFICIAL LEFT EYE- 1977 -: Cardiac catherization with stent -: pacemaker - Family History Father -: Heart disease, Hypertension Mother -: Diabetes - Social History Smoking Status: Never smoker Alcohol use: No CD- Drugs: No Caffeine use: No Place of Residence: Home Review of Systems 10-point ROS is otherwise unremarkable Cardiovascular: Chest Pain Physical Examination - Physical Exam General: Alert, In no apparent distress HEENT: Atraumatic, PERRLA, Mucous membr. moist/pink, EOMI, Sclerae nonicteric Neck: Supple, 2+ carotid pulse no bruit, No LAD, Without JVD or thyroid abnormality Respiratory: Clear to auscultation bilaterally, Normal air movement Cardiovascular: Regular rate/rhythm, Normal S1 S2 Gastrointestinal: Normal bowel sounds, No tenderness Musculoskeletal: No tenderness Integumentary: No rashes Neurological: Sensation intact Lymphatics: No axilla or inguinal lymphadenopathy - Studies Laboratory Data (last 24 hrs) 04/12/21 18:50: PT 12.9 H, INR 1.12 04/12/21 18:50: WBC 5.10, Hgb 11.6 L, Hct 35.8 L, Plt Count 242 04/12/21 18:50: Sodium 140, Potassium 3.7, BUN 29 H, Creatinine 1.66 H, Glucose 91, Magnesium 1.8, Total Bilirubin 0.3, AST 27, ALT 29, Alkaline Phosphatase 53 Assessment and Plan - Problems (Diagnosis) (1) CHF (congestive heart failure) Current Visit: No Status: Chronic Qualifiers: Heart failure type: unspecified Heart failure chronicity: chronic Qualified Code(s): I50.9 - Heart failure, unspecified (2) Chest pain Onset Date: 10/18/15 Current Visit: No Status: Acute Qualifiers: Chest pain type: unspecified Qualified Code(s): R07.9 - Chest pain, unspecified (3) DM2 (diabetes mellitus, type 2) Onset Date: 01/28/17 Current Visit: No Status: Chronic Qualifiers: Diabetes mellitus nursing home insulin use: with nursing home use Diabetes mellitus complication status: with kidney complications Diabetes mellitus complication detail: with chronic kidney disease Chronic kidney disease stage 3 subtype: stage 3a (GFR 45-59) (4) HTN (hypertension) Onset Date: 01/28/17 Current Visit: No Status: Chronic Qualifiers: Hypertension type: primary hypertension Qualified Code(s): I10 - Essential (primary) hypertension (5) Kidney disease Onset Date: 02/19/18 Current Visit: No Status: Chronic (6) CAD (coronary artery disease) Onset Date: 12/29/17 Current Visit: No Status: Chronic Qualifiers: Coronary Disease-Associated Artery/Lesion type: unspecified vessel or lesion type [place] vs. transplanted heart: [place] heart Associated angina: unspecified whether angina present Qualified Code(s): I25.10 - Atherosclerotic heart disease of [place] coronary artery without angina pectoris (7) Hyperlipidemia Onset Date: 11/26/15 Current Visit: No Status: Chronic Qualifiers: Hyperlipidemia type: unspecified Qualified Code(s): E78.5 - Hyperlipidemia, unspecified - Plan on telemetry, trend troponins, repeat EKG cardiology consulted daily ASA, BB, statin lipid and thyroid labs pending morphine and NTG prn sliding scale insulin and accuchecks reconcile and continue home medications continue milrinone infusion DVT ppx Discharge Plan: Home Plan to discharge in: 24 Hours - Advance Directives Does patient have a Living Will: No Does patient have a Durable POA for Healthcare: No - Code Status/Comfort Care Code Status Assessed: Yes (full code ) Critical Care: No Time Spent Managing Pts Care (In Minutes): 70
[2021-04-13] MEDS ORDERED: ACETAMINOPHEN 500 MG TAB PO PRN (01:43)
[2021-04-13] MEDS ORDERED: ONDANSETRON 4 MG/2 ML VIAL IV PRN (01:43)
[2021-04-13] MEDS ORDERED: NITROGLYCERIN 0.4 MG/TAB SL PRN (01:43)
[2021-04-13] MEDS ORDERED: MORPHINE 2 MG/ML SYR IV PRN (01:43)
[2021-04-13 06:00] LABS: Absolute Lymphocytes (CBC) 1.9 K/uL (0.7-4.9); Basophils % 0.6 % (0-1.3); Hematocrit 35.7 % (39.6-49.0); Lymphocytes % 32.8 % (15.3-44.8); MPV 8.3 fL (7.6-11.3)
[2021-04-13] MEDS: METOPROLOL TAR 25 MG TAB PO SCH ×2 (06:00→17:35)
[2021-04-13 06:13] VITALS: BMI 36.1
[2021-04-13 06:26] LABS: Albumin 3.1 g/dL (3.4-5.0); Bilirubin Total 0.3 mg/dL (0.2-1.0); Ferritin 64.9 ng/mL (26-388); Magnesium 1.8 mg/dL (1.8-2.4); Phosphorus 3.9 mg/dL (2.5-4.9); Potassium 3.6 mmol/L (3.5-5.1); Protein, Total 7.1 g/dL (6.4-8.2); Thyroid Stimulating Hormone 0.319 uIU/mL (0.360-3.740)
[2021-04-13] MEDS ORDERED: METOPROLOL TAR 25 MG TAB ONE (06:35)
[2021-04-13] MEDS: INSULIN -REGULAR HUMAN 50 UNIT/0.5 ML ML SQ SCH ×4 (07:30→21:00)
[2021-04-13 07:31] LABS: Troponin I 0.02 ng/mL (0.0-0.045)
[2021-04-13] MEDS: ASPIRIN EC 81 MG TAB PO SCH (09:00)
[2021-04-13] MEDS: FUROSEMIDE 20 MG TABLET PO SCH (09:00)
[2021-04-13] MEDS: ENOXAPARIN 40 MG/0.4 ML SQ SCH (09:00)
[2021-04-13] MEDS ORDERED: FUROSEMIDE 20 MG TABLET ONE (10:02)
[2021-04-13] MEDS ORDERED: ASPIRIN EC 81 MG TAB PO ONE (10:02)
[2021-04-13] MEDS ORDERED: ENOXAPARIN 40 MG/0.4 ML SQ ONE (10:03)
--- NOTE | 2021-04-13 11:24 | P.PN ---
Date of Service: 04/13/21 Patient is currently on a milirione pump. He has not brought his home supply. The patient has a limited amount in his pump. We do not have any in the pharmacy. He was started on it in [facility]. Have spoken to Dr. Huerta. The patient should stay on milirone. there is a risk of shock switching him to another medication. Will try transferring him to [facility].
[2021-04-13] MEDS ORDERED: DOBUTAMINE 250 MG/250 ML BAG IV PRN (11:57)
--- NOTE | 2021-04-13 15:02 | CON ---
Date of Consultation: 04/13/2021 Reason For Consultation: Chest pain. History Of Present Illness: A 55-year-old male with history of advanced heart failure, diabetes, and hypertension. He is on Milrinone drip, presented with chest pain, sharp, reduced amount, not relate d to exertion. Troponin has been negative. Past Medical History: As outlined above in HPI. Medications: Refer reconciliation sheet for detailed list. Allergies: NO KNOWN DRUG ALLERGIES. Family History: No premature coronary artery disease or cancer. Review of Systems: All systems reviewed and they were negative except for mentioned in the HPI. Physical Examination: Vital Signs: Temperature is 97.9, pulse 87, breathing 17, blood pressure is 136/92, and saturating 9 7%. General: Pleasant middle-aged male, in no apparent distress. Head and Neck: Pupils are equal and reactive to light. Intact eye movements. No JVD. No cervical lymphadenopathy. Neck is supple. Thyroid is not enlarged. Lungs: Clear to auscultation bilaterally. No rhonchi, rales, or crackles. No accessory muscle use. Heart: Regular rate and rhythm. No extra sounds. Abdomen: Soft, nontender. Bowel sounds positive. No organomegaly or cyanosis. Extremities: No edema, clubbing, or cyanosis. Intact pulses. Skin: No rashes. Neurologic: Alert, awake, and oriented x3. No acute focal deficits appreciated. Investigations: Troponins x3 are negative. Creatinine is 1.28, down from 1.66. Assessment And Recommendations: Chest pain. The patient had a coronary angiogram in 2016 that was n ormal and also had another coronary angiogram in 2019, which will be looked at momentarily. This is unlikely to be coronary artery disease related and hence, the troponin is negative. The patient can be released and follow up with the Advanced Heart Failure team as an outpatient. Thank you for the consult. /RIAZ Voice ID: [id number] Report ID: [id number]
[2021-04-13] MEDS ORDERED: ATORVASTATIN 40 MG TAB PO SCH (21:00)
[2021-04-14 06:02] LABS: Absolute Lymphocytes (CBC) 1.6 K/uL (0.7-4.9); Basophils % 0.7 % (0-1.3); Lymphocytes % 34.3 % (15.3-44.8); MPV 8.2 fL (7.6-11.3); RBC Red Blood Cell Count 4.53 M/uL (4.33-5.43)
[2021-04-14 06:24] LABS: Albumin 2.9 g/dL (3.4-5.0); Bilirubin Total 0.4 mg/dL (0.2-1.0); Potassium 3.9 mmol/L (3.5-5.1)
[2021-04-14] MEDS: METOPROLOL TAR 25 MG TAB PO SCH (06:26)
[2021-04-14] MEDS: INSULIN -REGULAR HUMAN 50 UNIT/0.5 ML ML SQ SCH ×2 (07:30→11:30)
[2021-04-14] MEDS: ASPIRIN EC 81 MG TAB PO SCH (08:27)
[2021-04-14] MEDS: FUROSEMIDE 20 MG TABLET PO SCH (08:27)
[2021-04-14] MEDS: ENOXAPARIN 40 MG/0.4 ML SQ SCH (08:28)
[2021-04-14] MEDS ORDERED: POTASSIUM CL SA 10 MEQ TAB PO ONE (09:00)
[2021-04-14 10:06] LABS: Magnesium 1.9 mg/dL (1.8-2.4)
--- NOTE | 2021-04-14 10:52 | P.DS ---
Admission Date: 04/13/21 Discharge Date: 04/14/21 Disposition: ROUTINE DISCHARGE Discharge Condition: GOOD Reason for Admission: chest pain Brief History of Present Illness: Patient was admitted for chest pain. He has a history of chf. Is on a milarone drip. Is being worked up for a cardiac assist device Hospital Course: Patient has negative troponins. He had a friend bring his milarone. Which he is doing well on. He is concerned that a heart transplant is dangerous. The patient was questioned about sleep apnea. He hemmed and hawed. I asked him directly if he had been tested and if he has a machine. He finally stated that he does have a cpap at home. However he does not use it. Talked about the best thing for his heart health is to use his cpap. We have had people taken off a heart transplant list by treating sleep apnea. 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 Vital Signs/Physical Exam: Temp Pulse Resp BP Pulse Ox 97.5 F 78 17 100/59 L 100 04/14/21 08:00 04/14/21 08:27 04/14/21 08:00 04/14/21 08:27 04/14/21 08:00 General: Alert, In no apparent distress HEENT: Atraumatic, PERRLA, EOMI Neck: Supple, JVD not distended Respiratory: Clear to auscultation bilaterally, Normal air movement Cardiovascular: Regular rate/rhythm, Normal S1 S2 Gastrointestinal: Normal bowel sounds, No tenderness Musculoskeletal: No tenderness Integumentary: No rashes Neurological: Normal speech, Normal tone, Normal affect Lymphatics: No axilla or inguinal lymphadenopathy Laboratory Data at Discharge: WBC 4.60 K/uL (4.3-10.9) D 04/14/21 05:48 Hgb 11.5 g/dL (13.6-17.9) L 04/14/21 05:48 Hct 36.0 % (39.6-49.0) L 04/14/21 05:48 Plt Count 227 K/uL (152-406) 04/14/21 05:48 PT 12.9 SECONDS (9.5-12.5) H 04/12/21 18:50 INR 1.12 04/12/21 18:50 Sodium 142 mmol/L (136-145) 04/14/21 05:48 Potassium 3.9 mmol/L (3.5-5.1) 04/14/21 05:48 BUN 24 mg/dL (7-18) H 04/14/21 05:48 Creatinine 1.11 mg/dL (0.55-1.3) 04/14/21 05:48 Glucose 102 mg/dL (74-106) 04/14/21 05:48 Phosphorus 3.9 mg/dL (2.5-4.9) 04/13/21 05:37 Magnesium 1.9 mg/dL (1.8-2.4) 04/14/21 05:48 Total Bilirubin 0.4 mg/dL (0.2-1.0) 04/14/21 05:48 AST 22 U/L (15-37) 04/14/21 05:48 ALT 24 U/L (12-78) 04/14/21 05:48 Alkaline Phosphatase 47 U/L (45-117) 04/14/21 05:48 Troponin I 0.02 ng/mL (0.0-0.045) 04/13/21 16:23 Triglycerides 109 mg/dL (<150) 04/14/21 05:48 Cholesterol 149 mg/dL (<200) 04/14/21 05:48 HDL Cholesterol 37 mg/dL (40-60) L 04/14/21 05:48 Cholesterol/HDL Ratio 4.03 04/14/21 05:48 Home Medications: Amlodipine Besylate 10 mg PO DAILY 05/27/12 Metformin HCl [Glucophage*] 500 mg PO DAILY 10/18/15 Nitroglycerin 0.4 mg SL PRN 10/19/15 Hydralazine [Apresoline*] 100 mg PO QID 01/28/17 Doxazosin [Cardura*] 2 mg PO BID #60 tab 01/29/17 Furosemide [Lasix*] 40 mg PO DAILY #30 tab 01/29/17 lisinopriL [Prinivil*] 40 mg PO DAILY #60 tab 11/18/18 Diet: AHA Activity: Ad shara Followup: Cornelia Zamora MD [OUTSIDE PHYSICIAN] - 1 Week Physician Review: Patient Assessed, Agree with Above Assessment and Plan Time spent managing pt's care (in minutes): 30
[2021-04-14 12:14] VITALS: O2SAT 100
[2021-04-14 12:51] VITALS: BP 139/80; TEMP 97.4
== END 2021-04-14 13:34 | disposition home or self-care (01) | DRG 313 ==
LOC: ER 18:22 → ERHOLD 04-13 01:13 → 2ND 04-13 14:32 → OBSVTOIN 04-13 20:09
PROVIDERS: ADMIT Internal Medicine; ATTEND Internal Medicine
DX: R07.9 Chest pain, unspecified (principal); I11.0 Hypertensive heart disease with heart failure; I50.9 Heart failure, unspecified; E11.9 Type 2 diabetes mellitus without complications; I25.10 Atherosclerotic heart disease of native coronary artery without angina pectoris; E78.5 Hyperlipidemia, unspecified; Z95.5 Presence of coronary angioplasty implant and graft; Z95.0 Presence of cardiac pacemaker; Z20.822 Contact with and (suspected) exposure to COVID-19
CPT/HCPCS: 36415; 71045; 80048; 80053; 80061; 80076; 82728; 82947; 83540; 83735; 83880; 84100; 84439; 84443; 84466; 84484; 85025; 85610; 93005; 94760; 99285; G0378; J1250; J1650; U0003

== ENCOUNTER 2021-07-08 16:36 | Inpatient (IN) | payer OTHER ==
--- OUTSIDE RECORDS SUMMARY | 2021-07-08 16:42 | XMS REPORT | Continuity of Care Document ---
:1965 Author Organization [facility] t Address [address] [place] [address] Care Team Providers Name Role Phone Robert BOYER, A Primary Care Physician Robert BOYER, A Attending Clinician Orlin Juan Attending Clinician Unavailable Rolo BAKER, B Attending Clinician Unavailable Dariel BOYER, Gene Attending Clinician Rosalia BOYER, S Attending Clinician Artemio OIL PLANT OPERATOR, L Attending Clinician Akalejandrina Attending Clinician Unavailable Nasim Attending Clinician Unavailable Tyler Attending Clinician Unavailable Elisha Attending Clinician Unavailable Physician, Primary or Family Admitting Clinician UnavailOrlin Barnard Admitting Clinician Unavailable Santana BOYER Admitting Clinician Akalejandrina Admitting Clinician Unavailable Tyler Admitting Clinician Unavailable Elisha Admitting Clinician Unavailable Payers Payer Name Policy Type Policy Number Effective Date Expiration Date S ource Problems Condition Condition Condition Status Onset Resolution Last Treating Co mments Source Name Details Category Date Date Treatment Clinician Date CHF with CHF with Disease Active 2020-08 Unive rs unknown unknown 1-29 ity of LVEF LVEF 00:00: [place] 00 Medical Branch Obesity Obesity Disease Active 2020-08 Univers (BMI (BMI 0-16 ity of 30-39.9) 30-39.9) 00:00: [place] [facility] Acute on Acute on Disease Active 2020-08 Unive rs chronic chronic 0-03 ity of combined combined 00:00: [place] systolic systolic 00 Medica l and and Branch diastolic diastolic CHF CHF (congestiv (congestiv e heart e heart failure) failure) Morbid Morbid Disease Active Univers obesity obesity 7-24 ity of 00:00: [place] 00 Medical Branch Pulmonary Pulmonary Disease Active Uni vers edema with edema with 7-23 it y of congestive congestive [place] heart heart 00 Medical failure failure Branch Chest pain Chest pain Disease Active U nivers 7-19 ity of 00:00: [place] [facility] Left-sided Left-sided Disease Active U nivers weakness weakness 5-17 ity of 00:00: [place] 00 Medical Branch Stroke, Stroke, Disease Active Univers acute, acute, 5-17 ity of embolic embolic 00:00: [place] 00 Medical Branch Noncomplia Noncomplia Disease Active U nivers nce nce 5-11 ity of 00:00: [place] [facility] Acute CVA Acute CVA Disease Active Uni vers (cerebrova (cerebrova 3-24 it y of scular scular 00:00: [place] accident) accident) 00 [facility] Branch Dyslipidem Dyslipidem Disease Active U nivers ia ia 3-11 ity of 00:00: [place] 00 Medical Branch Chronic Chronic Disease Active Univers left-sided left-sided 2-12 it y of low back low back 00:00: [place] pain with pain with 00 Medi jennifer sciatica, sciatica, Bran ch sciatica sciatica laterality laterality unspecifie unspecifie d d Cardiac Cardiac Disease Active Univers resynchron resynchron 1-13 it y of ization ization 00:00: [place] therapy therapy 00 Medical defibrilla 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 place ICD ICD Disease Active [...] and 00 Medical diastolic diastolic Bran ch heart heart failure failure Chest pain Chest pain Disease Active U nivers of unknown of unknown 8-31 it y of etiology etiology 00:00: [place] 00 Medical Branch Non-intrac Non-intrac Disease Active U nivers table table 2-06 ity of vomiting vomiting 00:00: [place] with with 00 Medical nausea, nausea, Branch unspecifie unspecifie d vomiting d vomiting type type Cardiomyop Cardiomyop Disease Active U nivers athy athy 1-21 ity of 00:00: [place] 00 Medical Branch Stage 3 Stage 3 Disease Active Univers chronic chronic 4-18 ity of kidney kidney 00:00: [place] disease disease 00 Medical Branch Diverticul Diverticul Disease Active U nivers osis large osis large 7-20 it y of intestine intestine 00:00[place] w/[place] w/o 00 Medical perforatio perforatio Br anch n or n or abscess abscess w/o w/o bleeding bleeding Diabetic Diabetic Disease Active Overview: Un dino eye exam eye exam 7-11 Formattin ity of 00:00: g of this [place] 00 note Medical might be Branch different from the original. 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 rs [...] syndrome syndrome 1-21 ity of 00:00: [place] 00 Medical Branch ACC/AHA ACC/AHA Disease Active 2014-08 Univers stage B stage B 1-21 ity of congestive congestive 00:00[place] heart heart 00 Medical failure failure Branch Essential Essential Disease Active 2014-08 Uni vers hypertensi hypertensi 0-01 it y of on on 00:00: [place] 00 Medical Branch Type 2 Type 2 Disease [...] [facility] Allergie 4-30 Clear s 00:00: [place] 00 [facility] No Known DA Active U [facility] Allergie 4-30 Clear s 00:00: [place] 00 [facility] No Known DA Active U [facility] Allergie 4-29 [place] s 00:00: d 00 Medical [place] Isosorbi Propensi Active Other - See Severe U nivers de ty to comments 04-04 hypotensi ity o f Mononitr adverse 00:00: on, [place] ate reaction 00 likely Medical s from Branch severe LVH per Dr. Zamora. No Known DA Active U [facility] Allergie 4-10 [place] s 00:00: [address] Social History Social Habit Start Date Stop Date Quantity Comments Source Exposure to Not sure [facility] SARS-CoV-2 [place] [facility] (event) Branch History SDOH University o f Alcohol Frequency [place] M edical Branch History SDOH University o f Alcohol Std [place] Medical Drinks Branch History SDCO University o f Alcohol Binge [place] Medic al Branch Alcohol intake 2021-07-01 2021-07-01 Ex-drinker [facility] 00:00:00 00:00:00 (finding) [place] [facility] Alcohol Comment 2021-05-22 2021-05-22 1 cup of whiskey Uni versity of 00:00:00 00:00:00 but last dirnk [facility] in December Branch Education 2020-04-30 2020-04-30 13 University of 00:00:00 00:00:00 [place] [facility] History SDOH 2019-08-22 2019-08-22 3 University o f Financial 00:00:00 00:00:00 [place] [facility] History SDOH Food 2019-08-22 2019-08-22 1 Univers ity of Worry 00:00:00 00:00:00 [place] [facility] History SDOH Food 2019-08-22 2019-08-22 1 Univers ity of Scarcity 00:00:00 00:00:00 [place] [facility] History SDOH 2019-08-22 2019-08-22 2 University o f Transport Med 00:00:00 00:00:00 [place] Medic al Branch History SDOH 2019-08-22 2019-08-22 2 University o f Transport Non-Med 00:00:00 00:00:00 [facility] edical Branch Tobacco use and 2018-11-08 2018-11-08 Never used Universit y of exposure 00:00:00 00:00:00 [facility] Sex [birth year] Universit y of 00:00:00 00:00:00 [facility] Smoking Status Start Date Stop Date Source Never smoker [facility] Medications Ordered Filled Start Stop Current Ordering Indication Dosage Frequency Signature Comments Components Source Medication Medication Date Date Medication? Clinician (SIG) Name Name omeprazole 2020-08 Yes 40mg Take 40 mg U nivers 40 mg - by mouth ity of capsule 13:10: daily. [address] GLIPIZIDE 5 2020-08 Yes [id number] 5mg TAKE 1 Univers mg tablet 1-29 TABLET BY ity o f 00:00: MOUTH 2 [place] (TWO) Medical TIMES Branch DAILY BEFORE BREAKFAST AND DINNER. bumetanide 2020-08 Yes [id number] 3mg Take 1.5 Univers 2 mg tablet 1-23 tablets by it y of 00:00: mouth [place] 00 every Medical morning Branch and evening. hydrALAZINE 2020-08- No [id number] 125mg Take 2.5 Univers 50 mg 1-23 12-01 tablets by ity of tablet 00:00: 00:00 mouth [place] 00 :00 every 8 Medical (eight) Branch hours. ACETAMINOPH 2020-08 Yes [id number] 1{tbl} TAKE 1 Un dino EN-CODEINE 0-28 TABLET BY ity of 300-30 mg 00:00: MOUTH [place] tablet 00 NEEDED Medical (TAKE Branch DAILY NEEDED FOR SEVERE RIGHT KNEE PAIN, S/P TKA, HEART FAILURE, UNABLE TO TAKE NSAIDS). INDICATION S: CHRONIC PAIN carvediloL 2020-08 Yes [id number] 50mg Take 2 Univers 25 mg 0-22 tablets by ity of tablet 00:00: mouth 2 [place] 00 (two) Medical times Branch daily with meals. clopidogreL 2020-08 Yes [id number] 75mg Take 1 Univers 75 mg 0-22 tablet by ity of tablet 00:00: mouth [place] 00 daily. Medical Branch atorvastati 2020-08 Yes [id number] 80mg Take 1 Univers n 80 mg 0-22 tablet by ity of tablet 00:00: mouth at [place] 00 bedtime. Medical Branch aspirin 81 Yes [id number] 81mg Take 1 U nivers mg EC 04-10 tablet by ity of tablet 00:00: mouth [place] 00 daily. Medical Branch SERTraline 2020- No [id number] 50mg Take 1 Univers 50 mg 04-04 9100 tablet by ity of tablet 00:00: 05:59 mouth at [place] 00 :00 bedtime Medical for 90 Branch days. nitroglycer Yes [id number] .4mg Place 1 Univers in 0.4 mg -28 tablet ity of sublingual 00:00: under the [place] tablet 00 tongue Medical every 5 Branch (five) minutes as needed for Chest pain. Immunizations Ordered Filled Immunization Date Status Comments Kamryn e Immunization Name Name Influenza Virus 2020-09-24 Completed Universit y of Vaccine Quad .5 mL 00:00:00 [facility] IM 6+ MO Branch Influenza Virus 2020-05-03 Completed Universit y of Vaccine Quad .5 mL 00:00:00 [facility] 6+ MO Branch Influenza Virus 2019-06-14 Completed Universit y of Vaccine Quad .5 mL 00:00:00 [facility] IM 6+ MO Branch Influenza Virus 2018-07-07 Completed Universit y of Vaccine Quad IM 3+ 00:00:00 [facility] Branch Td 2017-08-01 Completed University of 00:00:00 [facility] Influenza Virus 2016-05-22 Completed Universit y of Vaccine Quad IM 3+ 00:00:00 [facility] Branch Pneumococcal 2015-08-31 Completed University o f Polysaccharide, 00:00:00 [facility] ica PPSV23 (PNEUMOVAX) Branch Influenza Virus 2015-05-25 Completed Universit y of Vaccine Quad IM 00:00:00 [facility] ical Multi-dose 6+ MO Branch Procedures Procedure Date / Time Performed Performing Clinician Mercedez alas [id number] 2021-03-01 00:00:00 KHANG [facility] [id number] 2021-03-01 00:00:00 KHANG [facility] [id number] 2021-01-03 00:00:00 DU [facility] [id number] 2020-12-04 00:00:00 NEETU [facility] [id number] 2020-12-04 [facility]:00[facility] Start End Encounter Admission Attending Care Care Encounter Source Date/Time Date/Time Type Type Clinicians Facility Department ID 2020-11-29 Inpatient HCACR PAOLA [id number] [facility] 15:07:00 [id number] [facility] 2020-11-29 Inpatient HCAPM PAOLA [id number] [facility] 09:29:00 [id number] [facility] 2021-07-02 2021-07-02 Telephone Robert WYMARIANNE [id number] [facility] 00:00:00 00:00:00 Rochelle TSANG 350.1.13.10 Nagi 4.2.7.2.686 Glenn LIMA [id number] [address] 2021-02-28 2021-03-01 Inpatient EM Ahmed, HCAPM INTE.02 [id number] [facility] 16:19:00 15:10:00 [facility] [id number] [facility] 2021-02-28 2021-02-28 Outpatient Ahmed, HCACL LABO [id number] [facility] 08:44:00 08:44:00 [facility] [id number] [facility] 2021-02-27 2021-02-27 Inpatient EM Ahmed, HCAPM INTE.02 [id number] [facility] 12:18:00 12:17:00 [facility] [id number] [facility] 2021-02-27 2021-02-27 Transition Sridhar Seth [id number] 00:00:00 00:00:00 of Care Heavenly B Jiang [id number] Colon 4.2.7.2.686 [id number] 2021-02-26 2021-02-26 Transition Sridhar Seth [id number] 00:00:00 00:00:00 of Care Heavenly B Jiang 350.1.13.10 Colon 4.2.7.2.686 [id number] 2021-02-25 2021-02-25 Rolly Vieira WYMARIANNE 1.2.840.114 [id number] 00:00:00 00:00:00 Ayush Tsang 350.1.13.10 [place] 4.2.7.2.686 Professio [id number] [facility] 092 [facility] 2021-02-22 2021-02-24 Emergency Rosalia, [facility] [id number] 20:27:00 15:41:00 Doris Tsang 350.1.13.10 [place] 4.2.7.2.686 [place] [id number] [facility] 2021-02-13 2021-02-13 Patient Artemio, [facility] [id number] 00:00:00 00:00:00 Outreach Nikole Tsang 350.1.13.10 [place] 4.2.7.2.686 Professio [id number] [facility] 231 [facility] 2021-02-04 2021-02-06 Inpatient EM Akalejandrina, HCACL INTE.02 [id number] [facility] 20:15:00 16:26:00 Precious Shore705 [facility] 2021-02-04 2021-02-04 Emergency EM Rouse, HCAPM PAOLA [id number] [facility] 12:54:00 19:20:00 Isac [id number] [facility] 2021-01-03 2021-01-07 Inpatient EM Tyler, HCAPM INTE.02 [id number] [facility] 15:04:00 14:00:00 [facility] [id number] [facility] 2021-01-03 2021-01-03 Outpatient Tyler, HCACL LABO [id number] [facility] 21:53:00 21:53:00 [facility] [id number] [facility] 2020-11-30 2020-12-05 Inpatient EM Elisha, HCACR TELE [id number] [facility] 16:20:00 11:58:00 [facility] [id number] [facility] 2020-05-29 2020-05-29 [facility] E [id number] 05:06:00 03:46:00 [facility] Results Test Description Test Time Test Comments Results Result Comments Source GLUCOSE BEDSIDE TESTING 2021-03-01 11:27:00 Test Item Value Reference Range Interpretation Comme nts GLUCOSE BEDSIDE TESTING (test code = GLUBED) 109 mg/dL 70-110 N BASIC METABOLIC [id number] 08:09:00 Test Item Value Reference Range Interpretation [...] CA) 9.5 MG/DL 8.5-10.1 N GLUCOSE BEDSIDE [id number] 07:15:00 Test Item Value Reference Range Interpretation Comments GLUCOSE BEDSIDE TESTING (test code 102 mg/dL 70-110 N = GLUBED) GLUCOSE BEDSIDE [id number] 23:04:00 Test Item Value Reference Range Interpretation Comments GLUCOSE BEDSIDE TESTING (test code 127 mg/dL 70-110 H = GLUBED) GLUCOSE BEDSIDE [id number] 20:03:00 Test Item Value Reference Range Interpretation Comments GLUCOSE BEDSIDE TESTING (test code 149 mg/dL 70-110 H = GLUBED) GLUCOSE BEDSIDE [id number] 16:55:00 Test Item Value Reference Range Interpretation Comments GLUCOSE BEDSIDE TESTING (test code 110 mg/dL 70-110 N = GLUBED) GLUCOSE BEDSIDE [id number] 11:23:00 Test Item Value Reference Range Interpretation Comments GLUCOSE BEDSIDE TESTING (test code 173 mg/dL 70-110 H = GLUBED) GLUCOSE BEDSIDE [id number] 08:33:00 Test Item Value Reference Range Interpretation Comments GLUCOSE BEDSIDE TESTING (test code 107 mg/dL 70-110 N = GLUBED) DRUGS OF ABUSE SCREEN [id number] 06:11:00 Test Item Value Reference Range Interpretation [...] to interpret this result as normal/abnormal . [id number] 20:43:00 Test Item Value Reference Range Interpretation [...] Completed by Nursing: NO- CTA CHEST FOR [id number] 18:35:00 [facility] 1965 Sex: M Name: WILMER PARADA [facility] : 1965 Age/S: 55 / M [address] Unit #: [id number] Loc: [place] [address] Phys: Isac Rouse DO Acct: [id number] Dis Date: Status: REG ER PHONE #: [phone] Exam Date: 02/27/2021 1800 FAX #: Reason: chest pain, elevated ddimer EXAMS: CPT: [id number] [place] [address] Location of dictation: B2 CTA of the [...] Signed Report (CONTINUED) Name: WILMER PARADA [facility] [place] : 1965 Age/S: 55 / M [id number] Unit #: [id number] Loc: [place] [address] Phys: Isac Rosue DO Acct: [id number] Dis Date: Status: REG ER PHONE #: [phone] Exam Date: 02/27/2021 1800 FAX #: Reason: chest pain, elevated ddimer EXAMS: CPT: [id number] [place] [address] <Continued> at 1835 Reported and signed by: April Marsh M.D. CC: Isac Rouse DO Technologist:Caitlin Slaughter RT(R)(CT)(MRI) CTDI: DLP: Trnscb Date/Time: 02/27/2021 (1835) t.SYEDR.PXC Orig Print D/T: S: 02/27/2021 (9682) PAGE 2 Signed ReportCOVID 19 INHOUSE AG 2021-02-27 14:54:00 Test Item Value Reference Range Interpretation Comments COVID 19 INHOUSE AG NEGATIVE Negative Per manu facturer, (test code = negative result s should [id number]) be treated aspr esumptive and, if inconsi [...] nicalsigns and symptoms co nsistent with COVID-19. [id number] 13:38:00 Test Item Value Reference Range Interpretation [...] APPROPRIATECLIN ICAL EUALUATIONS. - XR CHEST 1 [id number] 13:35:00 [facility] 1965 Sex: M Name: WILMER PARADA : 1965 Age/S: 55 / M [address] Unit #: [id number] Loc: [place] [address] Phys: Isac Rouse DO Acct: [id number] Dis Date: Status: REG ER PHONE #: [phone] Exam Date: 02/27/2021 1320 FAX #: Reason: chest pain EXAMS: CPT: [id number] XR CHEST 1 V 92500 Fluoro Time: DAP (Gy m2): Air Kerma [...] the chest with no acute findings. at 9320 Reported and signed by: April Marsh M.D. CC: Isac Davis PAGE 1 Signed Report Name: WILMER PARADA : 1965 Age/S: 55/ M [address] Unit #: [id number] Loc: [place] [address] Phys: Isac Rouse DO Acct: [id number] Dis Date: Status: REG ER PHONE #: [phone] Exam Date: 02/27/2021 1320 FAX #: Reason: chest pain EXAMS: CPT: [id number] XR CHEST 1 V 29169 Fluoro Time:DAP (Gy m2): Air Kerma (mGy): <Continued> Technologist: Bandar Tirado RT(R)(CT) Trnscb Date/Time: 02/27/2021 (7539) Zena Orig Print D/T: S: 02/27/2021 (9011) PAGE 2 Signed ReportBASIC METABOLIC [id number] 13:29:00 Test Item Value Reference Range Interpretation [...] CK) Completed by Nursing: NONT PRO-BRAIN NATRIURETIC [id number] 13:29:00 Test Item Value Reference Range Interpretation Comments NT PRO-BRAIN NATRIURETIC PEPTI 1727 PG/ML 0-100 H (test code = PROBNP) Completed by Nursing: [id number] 13:29:00 Test Item Value Reference Range Interpretation [...] yby method. 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 [facility] [id number] 08:13:00 Test Item Value Reference Range Interpretation Comments GLUBED (test code = 101 MG/DL 70-110 N Performe d by certified GLUBED) 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 [facility] [id number] 07:50:00 Test Item Value Reference Range Interpretation Comments HGBA1C% (test code = HGBA1C%) 5.9 %A1C 4.8-6.0 N BASIC METABOLIC [id number] 07:33:00 Test Item Value Reference Range Interpretation [...] mg/dL 8.0-10.5 N CA) TSH REFLEX TO [id number] 07:33:00 Test Item Value Reference Range Interpretation Comments TSH REFLEX TO FT4 (test code = 0.50 IU/mL 0.42-5.47 N TSHREFLEX) BASIC METABOLIC [id number] 07:28:00 Test Item Value Reference Range Interpretation [...] mg/dL 8.0-10.5 N CA) TSH REFLEX TO [id number] 07:28:00 Test Item Value Reference Range Interpretation Comments TSH REFLEX TO FT4 (test code = IU/mL 0.42-5.47 TSHREFLEX) CBC W/AUTO [id number] 07:23:00 Test Item Value Reference Range Interpretation [...] DIFF REQUIRED (test code NO = MDIFF) [id number] 20:49:00 Test Item Value Reference Range Interpretation Comments GLUBED (test code = 129 MG/DL 70-110 H Performe d by certified GLUBED) 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 [facility] COMPREHENSIVE METABOLIC [id number] 04:33:00 Test Item Value Reference Range Interpretation [...] 0-100 H <100 (test code = LDL) [id number] -129 NEAR OPTIMAL/ABOVE [id number] HIGH>XH=904 VE RY HIGH*Guidelines provided by the [facility] Adult Treatment Panel III CBC W/AUTO [id number] 04:22:00 Test Item Value Reference Range Interpretation [...] (test code NO = MDIFF) CBC W/AUTO [id number] 04:21:00 Test Item Value Reference Range Interpretation [...] MANUAL DIFF REQUIRED (test code = MDIFF) [id number] 00:46:00 Test Item Value Reference Range Interpretation [...] results may suzy y by method. LIPOPROTEIN [id number] 22:00:00 Test Item Value Reference Range Interpretation Comments LIPOPROTEIN LDL 166.8 mg/dL 0-100 H <100 OPT [id number] (test code = LDL) NEAR OPTI MAL/ABOVE [id number] HIGH>IH=438 VE RY HIGH*Guidelines provided by the [facility] Adult [facility] Panel III [id number] 21:44:00 Test Item Value Reference Range Interpretation [...] titative results may suzy y by method. 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 [facility] UA RFLX MICR CULT IF [id number] 18:05:00 Test Item Value Reference Range Interpretation [...] Indication for culture: Dysuria/FrequencyDRUGS OF ABUSE SCREEN [id number] 18:05:00 Test Item Value Reference Range Interpretation [...] [Automate d code = OPIATURN) SCcutoff message] Th e system which generated [...] Indication for culture: Dysuria/FrequencyDRUGS OF ABUSE SCREEN [id number] 17:28:00 Test Item Value Reference Range Interpretation Comments URN COCAINE (test code = SCcutoff See_Comment [A utomated message] COCAURN) The system [employer] generated this result transmit breanne reference range [...] See_Comment [A utomated message] OPIATURN) The system [employer] generated this result transmit breanne reference range [...] [A utomated message] = METHAURN) The system [employer] generated this result transmit breanne reference range [...] Indication for culture: Dysuria/FrequencyDRUGS OF ABUSE SCREEN [id number] 17:23:00 Test Item Value Reference Range Interpretation Comments URN COCAINE (test code = SCcutoff See_Comment [A utomated message] COCAURN) The system [employer] generated this result transmit breanne reference range [...] See_Comment [A utomated message] OPIATURN) The system [employer] generated this result transmit breanne reference range [...] [A utomated message] = METHAURN) The system [employer] generated this result transmit breanne reference range : <300 NG/ML. The reference range was not used to interpret this result as normal/abnormal . Indication for culture: Dysuria/Frequency- CTA CHEST FOR [id number] 16:11:00[facility] : 1965 Sex: M Name: WILMER PARADA [facility] : 1965 Age/S: 55 / M [address] Unit #: [id number] Loc: [place] [address] Phys: Isac Rouse DO Acct: [id number] Dis Date: Status: REG ER PHONE #: [phone] Exam Date: 02/04/2021 1540 FAX #: Reason: chest pain EXAMS: CPT: [id number] CTA CHEST FOR PE EXAM: - CTA [...] 1 Signed Report (CONTINUED) Name: WILMER PARADA [facility] [place] : 1965 Age/S: 55 / M [address] Unit #: [id number] Loc: [place] [address] Phys: Isac Rouse DO Acct: [id number] Dis Date: Status: REG ER PHONE #: [phone] Exam Date: 02/04/2021 1540 FAX #: Reason: chest pain EXAMS: CPT: [id number] CTA CHEST FOR PE <Continued> BONES: No acute osseous findings. Mild thoracic texture scoliosis. IMPRESSION: 1. No pulmonary embolism. No acute findings throughout the lungs. 2. Borderline dilated heart chambers. at 1611 Reported and signed by:Luis Rogers D.O. CC: Isac Rouse DO; Afua DARNELL Technologist:Carmen Ruggiero, RT(R) CTDI: DLP: Trnscb Date/Time: 02/04/2021 (1611) [id number] Orig Print D/T: S: 02/04/2021 (1053) PAGE 2 Signed ReportD-DIMER 2021-02-04 14:30:00 Test Item Value Reference Range Interpretation Comments D-DIMER (test code = DDIMER) 979 ng/mLFEU 215-500 HH BASIC METABOLIC [id number] 14:03:00 Test Item Value Reference Range Interpretation [...] Unit/L 26-192 H CK) Completed by Nursing: [id number] 14:03:00 Test Item Value Reference Range Interpretation [...] method. Completed by Nursing: NOCOVID 19 INHOUSE [id number] 13:50:00 Test Item Value Reference Range Interpretation Comments COVID 19 INHOUSE AG NEGATIVE Negative Per manu facturer, (test code = negative result s should [id number]) be treated aspr esumptive and, if inconsi [...] nsistent with COVID-19. - XR CHEST 1 [id number] 13:44:00 [facility] 1965 Sex: M Name: WILMER PARADA [facility] : 1965 Age/S: 55 / M [address] Unit #: [id number] Loc: [place] [address] Phys: Isac Rouse DO Acct: [id number] Dis Date: Status: PRE ER PHONE #: [phone] Exam Date: 02/04/2021 1326 FAX #: Reason: chest pain EXAMS: CPT: [id number] XR CHEST 1 V 18921 Fluoro Time: DAP (Gy m2): Air Kerma [...] PARADA : 1965 Age/S: 55 / M [address] Unit #: [id number] Loc: [place] [address] Phys: Isac Rouse DO Acct: [id number] Dis Date: Status: PRE ER PHONE #: [phone] Exam Date: 02/04/2021 1326 FAX #: Reason: chest pain EXAMS: CPT: [id number] XR CHEST 1 V 49747 Fluoro Time: DAP (Gy m2): Air Kerma (mGy): <Continued> Technologist: RT Stephanie(R) Trnscb Date/Time: 02/04/2021 (3533) VikramRK5 Orig Print D/T: S: 02/04/2021 (0558) PAGE 2 Signed ReportCBC W/O [id number] 13:36:00 Test Item Value Reference Range Interpretation [...] 10.90 fL 7.0-9.6 H MPV) BASIC METABOLIC [id number] 12:58:00 Test Item Value Reference Range Interpretation [...] CA) 9.0 MG/DL 8.5-10.1 N CBC W/AUTO [id number] 12:51:00 Test Item Value Reference Range Interpretation [...] . [Automated mess age] The system which [employer] nerated this result tra nsmitted reference range : 0-. The reference range was not used to interpr et this result as normal/abnormal . HDL CHOLESTEROL 39 MG/DL 40-59 L (test code = HDL) NON-HDL CHOLESTEROL 144 mg/dL <130 H (test code = NHDL) LIPOPROTEIN LDL 119 MG/DL 0-129 N <100 VURTNJS682 - (test code = LDL) 129 CELI R OPTIMAL/ABOVE CSEDLQV073 - 15 9 [id number] - 189 HIGH>OR= 190 VERY HIGHNOTE THAT G UIDELINES ARE PROVIDED BY NATIONAL CHOLESTEROLEDUC ATION PROGRAM ADULT T REATMENT PANEL III LDL/HDL (test code 3.05 Ratio See_Comment N [Automat ed message] The = LDL/HDL) system which [employer] nerated this result tra nsmitted reference range : 1.48-3.22 Avg. The reference range was not used to interpr et this result as normal/abnormal . GLYCOSYLATED HEMOGLOBIN [id number] 12:24:00 Test Item Value Reference Range Interpretation Comments GLYCOSYLATED HEMOGLOBIN (HA1C) 5.8 % A1C 0.0-5.7 H (test code = GLYHGB) ESTIMATED AVERAGE GLUCOSE (test 120 MG/DLest code = EAG) GLUCOSE BEDSIDE [id number] 12:05:00 Test Item Value Reference Range Interpretation Comments GLUCOSE BEDSIDE TESTING (test code 151 mg/dL 70-110 H = GLUBED) - XR CHEST 1 [id number] 11:05:00 [facility] 1965 Sex: M Name: WILMER PARADA [place] : 1965 Age/S: 55 / M [address] Unit #: [id number] Loc: [place] [address] Phys: Rolando Napier LISA Acct: [id number] Dis Date: Status: ADM IN PHONE #: [phone] Exam Date: 01/07/2021 1050 FAX #: Reason: Cough EXAMS: CPT: [id number] XR CHEST 1 V 66396 Fluoro Time: DAP (Gy m2): Air Kerma [...] PAGE 1 Signed Report Name: WILMER PARADA [place] : 1965 Age/S: 55 / M [address] [place] [address] Unit #: [id number] Loc: [place] [address] Phys: Rosina NapierStorm Acct: [id number] Dis Date: Status: ADM IN PHONE #: [phone] Exam Date: 01/07/2021 1050 FAX #: Reason: Cough EXAMS: CPT: [id number] XR CHEST 1 V 61619 Fluoro Time: DAP (Gy m2): Air Kerma (mGy): <Continued> Technologist: RT Lynne(R)(MR) Trnscb Date/Time: 01/07/2021 (1105) VikramPE1 Orig Print D/T: S: 01/07/2021 (8832) PAGE 2 Signed ReportGLUCOSE BEDSIDE [id number] 08:05:00 Test Item Value Reference Range Interpretation Comments GLUCOSE BEDSIDE TESTING (test code 105 mg/dL 70-110 N = GLUBED) GLUCOSE BEDSIDE [id number] 21:27:00 Test Item Value Reference Range Interpretation Comments GLUCOSE BEDSIDE TESTING (test code 100 mg/dL 70-110 N = GLUBED) GLUCOSE BEDSIDE [id number] 16:40:00 Test Item Value Reference Range Interpretation Comments GLUCOSE BEDSIDE TESTING (test code = 89 mg/dL 70-110 N GLUBED) GLUCOSE BEDSIDE [id number] 12:10:00 Test Item Value Reference Range Interpretation Comments GLUCOSE BEDSIDE TESTING (test code = 94 mg/dL 70-110 N GLUBED) GLUCOSE BEDSIDE [id number] 07:51:00 Test Item Value Reference Range Interpretation Comments GLUCOSE BEDSIDE TESTING (test code 102 mg/dL 70-110 N = GLUBED) GLUCOSE BEDSIDE [id number] 20:30:00 Test Item Value Reference Range Interpretation Comments GLUCOSE BEDSIDE TESTING (test code = 98 mg/dL 70-110 N GLUBED) GLUCOSE BEDSIDE [id number] 15:39:00 Test Item Value Reference Range Interpretation Comments GLUCOSE BEDSIDE TESTING (test code 102 mg/dL 70-110 N = GLUBED) - CT ANGIO [id number] 14:06:00 [facility] : 1965 Sex: M Name: WILMER PARADA [facility] : 1965 Age/S: 55 / M [address] Unit #: [id number] Loc: [place] [address] Phys: Anabela Le MD Acct: [id number] Dis Date: Status: ADM IN PHONE #: [phone] Exam Date: 01/05/20211334 FAX #: Reason: CVA EXAMS: CPT: [id number] CT ANGIO NECK [address] Exam: - CT ANGIO HEAD, - CT [...] 1 Signed Report (CONTINUED) Name: WILMER PARADA [facility] : 1965 Age/S: 55 / M [address] [facility] [address] Unit #: [id number] Loc: [place] [address] Phys: Anabela Le MD Acct: [id number] Dis Date: Status: ADM IN PHONE #: [phone] Exam Date: 01/05/2021 1332 FAX #: Reason: CVA EXAMS: CPT: [id number] CT ANGIO NECK [address] <Continued> visualized fascial planes ofthe neck are [...] Report (CONTINUED) Name: WILMER PARADA [facility] [place] : 1965 Age/S: 55 / M [address] Unit #: [id number] Loc: [place] [address] Phys: Anabela Le MD Acct: [id number] Dis Date: Status: ADM IN PHONE #: [phone] Exam Date: 01/05/2021 2361 FAX #: Reason: CVA EXAMS: CPT: [id number] CT ANGIO NECK [address] <Continued> Posterior communicating arteries: Not visualized Distal [...] 3 Signed Report (CONTINUED) Name: WILMER PARADA [facility] : 1965 Age/S: 55 / M [address] Unit #: [id number] Loc: [place] [address]Xypx: Anabela Le MD Acct: [id number] Dis Date: Status: ADM IN PHONE #: [phone] Exam Date: 01/05/2021 1335 FAX #: Reason: CVA EXAMS: CPT: [id number] CT ANGIO NECK [address] <Continued> CC: Anabela Le MD; Yared Scott MD Technologist:Gregory Sahni, RT(R)(CT); .. CTDI: DLP: Trnscb Date/Time: 01/05/2021 (1406) t.SYEDR.AL7 Orig Print D/T: S: 01/05/2021 (1970) PAGE 4 Signed Report- CT ANGIO [id number] 14:06:00 [facility] : 1965 Sex: M Name: WILMER PARADA [facility] : 1965 Age/S: 55 / M [address] Unit #: [id number] Loc: [place] [address] Phys: Anabela Le MD Acct: [id number] Dis Date: Status: ADM IN PHONE #: [phone] Exam Date: 01/05/2021 1330 FAX #: Reason: CVA EXAMS: CPT: [id number] CT ANGIO HEAD [address] Exam: - CT ANGIO HEAD, - CT [...] PARADA : 1965 Age/S: 55 / M [address] Unit #: [id number] Loc: [place] [address] Phys: Anabela Le MD Acct: [id number] Dis Date: Status: ADM IN PHONE #: [phone] Exam Date: 01/05/2021 1330 FAX #: Reason: CVA EXAMS: CPT: [id number] CT ANGIO HEAD [address] <Continued> visualized fascial planes ofthe neck are [...] Report (CONTINUED) Name: WILMER PARADA [facility] [place] : 1965 Age/S: 55 / M [address] Unit #: [id number] Loc: [place] [address] Phys: Anabela Le MD Acct: [id number] Dis Date: Status: ADM IN PHONE #: [phone] Exam Date: 01/05/2021 1330 FAX #: Reason: CVA EXAMS: CPT: [id number] CT ANGIO HEAD [address] <Continued> Posterior communicating arteries: Not visualized Distal [...] 3 Signed Report (CONTINUED) Name: WILMER PARADA [place] : 1965 Age/S: 55 / M [address] Unit #: [id number] Loc: [place], [place] [address]Xzsr: Anabela Le MD Acct: [id number] Dis Date: Status: ADM IN PHONE #: [phone] Exam Date: 01/05/2021 1330 FAX #: Reason: CVA EXAMS: CPT: [id number] CT ANGIO HEAD [address] <Continued> CC: Anabela Le MD; Yared Scott MD Technologist:Gregory Sahni, RT(R)(CT); .. CTDI: DLP: Trnscb Date/Time: 01/05/2021 (1406) t.SDR.AL7 Orig Print D/T: S: 01/05/2021 (1410) PAGE 4 Signed ReportBASIC METABOLIC [id number] 12:38:00 Test Item Value Reference Range Interpretation [...] CA) 9.0 MG/DL 8.5-10.1 N CBC W/AUTO [id number] 12:28:00 Test Item Value Reference Range Interpretation [...] code NO DIFF/SCN CRITERIA = MDIFF) PROTHROMBIN [id number] 12:27:00 Test Item Value Reference Range Interpretation Comments PT PATIENT (test code = PTP) 12.1 SECONDS 9.3-12.9 N INTERNATIONAL NORMAL RATIO 1.08 INR Unit 0.8-1.2 N (test code = INR) THROMBOPLASTIN TIME [id number] 12:27:00 Test Item Value Reference Range Interpretation Comments THROMBOPLASTIN TIME PARTIAL 33.0 SECONDS 26-35 N (test code = PTT) GLUCOSE BEDSIDE [id number] 11:56:00 Test Item Value Reference Range Interpretation Comments GLUCOSE BEDSIDE TESTING (test code 101 mg/dL 70-110 N = GLUBED) - CT HEAD/BRAIN W/O [id number] 11:53:00 [facility] : 1965 Sex: M Name: WILMER PARADA [facility] : 1965 Age/S: 55 / M [address] Unit #: [id number] Loc: [place] [address] Phys: Susan Conway MD Acct: [id number] Dis Date: Status: ADM IN PHONE #: [phone] Exam Date: 01/05/2021 1133 FAX #: Reason: left sided weakness EXAMS: CPT: [id number] CT HEAD/BRAIN W/O CONT 76750 EXAM: CT Head without contrast Location: B2 [...] 1 Signed Report (CONTINUED) Name: WILMER PARADA [facility] : 1965 Age/S: 55 / M [address] Unit #: [id number] Loc: [place] [address] Phys: Susan Conway MD Acct: [id number] Dis Date: Status: ADM IN PHONE #: [phone] Exam Date: 01/05/2021 1135 FAX #: Reason: left sided weakness EXAMS: CPT: [id number] CT HEAD/BRAIN W/O CONT 86236 <Continued> on 01/05/2021 FOR INTERNAL CODING PURPOSES ONLY RESULT CODE: CVR at 1153 Reported and signed by: Diego Paez M.D. CC:Susan Conway MD; Yared Scott MD Technologist:Gregory Sahni, RT(R)(CT); .. CTDI: DLP: Trnscb Date/Time: 01/05/2021 (1153) [email or web address] Orig Print D/T: S: 01/05/2021 (9257) PAGE 2 Signed ReportGLUCOSE BEDSIDE [id number] 07:54:00 Test Item Value Reference Range Interpretation Comments GLUCOSE BEDSIDE TESTING (test code 118 mg/dL 70-110 H = GLUBED) GLUCOSE BEDSIDE [id number] 21:52:00 Test Item Value Reference Range Interpretation Comments GLUCOSE BEDSIDE TESTING (test code = 98 mg/dL 70-110 N GLUBED) GLUCOSE BEDSIDE [id number] 15:47:00 Test Item Value Reference Range Interpretation Comments GLUCOSE BEDSIDE TESTING (test code 124 mg/dL 70-110 H = GLUBED) GLUCOSE BEDSIDE [id number] 11:34:00 Test Item Value Reference Range Interpretation Comments GLUCOSE BEDSIDE TESTING (test code 107 mg/dL 70-110 N = GLUBED) GLUCOSE BEDSIDE [id number] 07:37:00 Test Item Value Reference Range Interpretation Comments GLUCOSE BEDSIDE TESTING (test code 109 mg/dL 70-110 N = GLUBED) BASIC METABOLIC [id number] 04:53:00 Test Item Value Reference Range Interpretation [...] code = CA) 8.7 MG/DL 8.5-10.1 N [id number] 04:53:00 Test Item Value Reference Range Interpretation Comments PHOSPHOROUS (test code = PHOS) 3.8 MG/DL 2.5-4.9 N [id number] 04:53:00 Test Item Value Reference Range Interpretation Comments MAGNESIUM (test code = MAG) 2.1 MG/DL 1.8-2.4 N NT PRO-BRAIN NATRIURETIC [id number] 04:53:00 Test Item Value Reference Range Interpretation Comments NT PRO-BRAIN NATRIURETIC PEPTI 753 PG/ML 0-100 H (test code = PROBNP) BASIC METABOLIC [id number] 04:47:00 Test Item Value Reference Range Interpretation [...] code = CA) 8.7 MG/DL 8.5-10.1 N [id number] 04:47:00 Test Item Value Reference Range Interpretation Comments PHOSPHOROUS (test code = PHOS) MG/DL 2.5-4.9 [id number] 04:47:00 Test Item Value Reference Range Interpretation Comments MAGNESIUM (test code = MAG) 2.1 MG/DL 1.8-2.4 N NT PRO-BRAIN NATRIURETIC [id number] 04:47:00 Test Item Value Reference Range Interpretation Comments NT PRO-BRAIN NATRIURETIC PEPTI (test PG/ML 0-100 code = PROBNP) CBC W/AUTO [id number] 04:34:00 Test Item Value Reference Range Interpretation [...] NO DIFF/SCN CRITERIA = MDIFF) GLUCOSE BEDSIDE [id number] 22:32:00 Test Item Value Reference Range Interpretation Comments GLUCOSE BEDSIDE TESTING (test code = 88 mg/dL 70-110 N GLUBED) GLUCOSE BEDSIDE [id number] 17:59:00 Test Item Value Reference Range Interpretation Comments GLUCOSE BEDSIDE TESTING (test code = 97 mg/dL 70-110 N GLUBED) - XR CHEST 1 [id number] 17:25:00 [facility] : 1965 Sex: M Name: WILMER PARADA [facility] : 1965 Age/S: 55 / M [address] Unit #: [id number] Loc: [place] [address] Phys: Rolando Napier AGACNP Acct: [id number] Dis Date: Status: ADM IN PHONE #: [phone] Exam Date: 01/03/2021 1510 FAX #: Reason: Dyspnea EXAMS: CPT: [id number] XR CHEST 1 V 04330 Fluoro Time: DAP (Gy m2): Air Kerma [...] Zabala M.D. CC: Yared Scott MD; Rolando NapierPAGE 1 Signed Report Name: WILMER PARADA [place] : 1965 Age/S: 55 / M [address] Unit #: [id number] Loc: [place] [address] Phys: KarthikeyanRosinaimmanuel GONZALEZ Acct: [id number] Dis Date: Status: ADM IN PHONE #: [phone] Exam Date: 01/03/2021 0968 FAX #: Reason: Dyspnea EXAMS: CPT: [id number] XR CHEST 1 V 45710 Fluoro Time: DAP (Gy m2): Air Kerma (mGy): <Continued> Technologist: Polly Mcnamara, RT(R)(CT); Nikole Rider RT(R) Trnscb Date/Time: 01/03/2021 (172) t16 Orig Print D/T: S: 01/03/2021 (3396) PAGE 2 Signed ReportBASIC METABOLIC PANEL 2021-01-03 [...] 8.9 MG/DL 8.5-10.1 N Completed by Nursing: [id number]-[id number] 14:57:00 Test Item Value Reference Range Interpretation [...] method. Completed by Nursing: NOCOVID 19 INHOUSE [id number] 14:55:00 Test Item Value Reference Range Interpretation Comments COVID 19 INHOUSE AG NEGATIVE Negative Per manu facturer, (test code = negative result s should WXJHE25IXTL) be treated aspr esumptive and, if inconsi [...] co nsistent with COVID-19. Spec Comments: NPROTHROMBIN [id number] 14:54:00 Test Item Value Reference Range Interpretation Comments PT PATIENT (test code = PTP) 11.0 SECONDS 9.3-12.9 N INTERNATIONAL NORMAL RATIO 0.98 INR Unit 0.8-1.2 N (test code = INR) THROMBOPLASTIN TIME [id number] 14:54:00 Test Item Value Reference Range Interpretation Comments THROMBOPLASTIN TIME PARTIAL 30.0 SECONDS 26-35 N (test code = PTT) - CT ANGIO [id number] 14:53:00 [facility] 1965 Sex: M Name: WILMER PARADA [facility] : 1965 Age/S: 55 / M [address] Unit #: [id number] Loc: [place] [address] Phys: Musa Alfaro DO Acct: [id number] Dis Date: Status: REG ER PHONE #: [phone] Exam Date: 01/03/2021 1922 FAX #: Reason: left sided weakness EXAMS: CPT: [id number] CT ANGIO HEAD [address] B2 - CT ANGIO NECK, - CT [...] 1 Signed Report (CONTINUED) Name: WILMER PARADA [facility] : 1965 Age/S: 55 / M [address] Unit #: [id number] Loc: [place] [address] Phys: Musa Alfaro DO Acct: [id number] Dis Date: Status: REG ER PHONE #: [phone] Exam Date: 01/03/2021 1425 FAX #: Reason: left sided weakness EXAMS: CPT:[id number] CT ANGIO HEAD [address] <Continued> Both posterior cerebral arteries are normal. [...] IMPRESSION: Normal head and neck CTA. at 7023 Reported and signed by: Dagoberto Mayer M.D. CC: Musa Alfaro DO Technologist:Nikole Rider RT(R) CTDI: DLP: Trnscb Date/Time: 01/03/2021 (1452) t.SDR.VB7 Orig Print D/T: S: 01/03/2021 (6313) PAGE 2 Signed Report- CT ANGIO [id number] 14:53:00 [facility] : 1965 Sex: M Name: WILMER PARADA [facility] : 1965 Age/S: 55 / M [address] Unit #: [id number] Loc: [place] [address] Phys: Musa Alfaro DO Acct: [id number] Dis Date: Status: REG ER PHONE #: [phone] Exam Date: 01/03/2021 1429 FAX #: Reason: left sided weakness EXAMS: CPT: [id number] CT ANGIO NECK [address] B2 - CT ANGIO NECK, - CT [...] Signed Report (CONTINUED) Name: WILMER PARADA [facility] [place] : 1965 Age/S: 55 / M [address] Unit #: [id number] Loc: [place] [address] Phys: DominicMusa Cespedes DO Acct: [id number] Dis Date: Status: REG ER PHONE #: [phone] Exam Date: 01/03/2021 1429 FAX #: Reason: left sided weakness EXAMS: CPT:[id number] CT ANGIO NECK [address] <Continued> Both posterior cerebral arteries are normal. [...] IMPRESSION: Normal head and neck CTA. at 6313 Reported and signed by: Dagoberto Mayer M.D. CC: Musa Alfaro DO Technologist:Nikole Rider, RT(R) CTDI: DLP: Trnscb Date/Time: 01/03/2021 (909) t.SYEDRTejVB7 Orig Print D/T: S: 01/03/2021 (1911) PAGE 2 Signed ReportCBC W/O [id number] 14:32:00 Test Item Value Reference Range Interpretation [...] 7.0-9.6 H MPV) - CT HEAD/BRAIN W/O [id number] 14:20:00 [facility] 1965 Sex: M Name: WILMER PARADA : 1965 Age/S: 55 / M [address] Unit #: [id number] Loc: [place] [address] Phys: Musa Alfaro DO Acct: [id number] Dis Date: Status: PRE ER PHONE #: [phone] Exam Date: 01/03/2021 1404 FAX #: Reason: Code Stroke EXAMS: CPT: [id number] CT HEAD/BRAIN W/O CONT 49130 EXAMINATION: Head CT without contrast INDICATION: Code stroke COMPARISON: 11/29/2020 LOCATION: S17 TECHNIQUE: Axial noncontrast head CT was performed. Sagittal and coronal reformatted images were created. CT radiation dose optimization is achieved for this examination by the use of a CT protocol in accordance with ACR practice guidelines and adherence to biometrics analyst recommendations. DLP: 836 mGy-cm. FINDINGS: Mild-moderate supratentorial [...] CC: Musa Alfaro DO Technologist:Juan Hernandez, RT(R)(CT); Cathie CTDI: DLP: Trnscb Date/Time: 01/03/2021 (1419) Joselito1 Orig Print D/T: S: 01/03/2021 (2227) PAGE 1 Signed ReportGLUCOSE BEDSIDE [id number] 11:35:00 Test Item Value Reference Range Interpretation Comments GLUCOSE BEDSIDE TESTING (test code 115 MG/DL 70-119 N = GLUBED) CBC W/AUTO [id number] 09:54:00 Test Item Value Reference Range Interpretation [...] 0.00 K/mm3 0.00-0.05 N NRBC#) RECOLLECTGLUCOSE BEDSIDE [id number] 07:34:00 Test Item Value Reference Range Interpretation Comments GLUCOSE BEDSIDE TESTING (test code 116 MG/DL 70-119 N = GLUBED) BASIC METABOLIC [id number] 06:24:00 Test Item Value Reference Range Interpretation [...] (test code = MG Index/DL The system whic h HEMINDEX) generated this result transmit breanne [...] to interpret this result as normal/abnormal . [id number] 06:24:00 Test Item Value Reference Range Interpretation Comments MAGNESIUM (test code = MAG) 2.3 MG/DL 1.6-2.6 N GLUCOSE BEDSIDE [id number] 20:37:00 Test Item Value Reference Range Interpretation Comments GLUCOSE BEDSIDE TESTING (test code 118 MG/DL 70-119 N = GLUBED) GLUCOSE BEDSIDE [id number] 16:47:00 Test Item Value Reference Range Interpretation Comments GLUCOSE BEDSIDE TESTING (test code 100 MG/DL 70-119 N = GLUBED) GLUCOSE BEDSIDE [id number] 07:44:00 Test Item Value Reference Range Interpretation Comments GLUCOSE BEDSIDE TESTING (test code 121 MG/DL 70-119 H = GLUBED) GLUCOSE BEDSIDE [id number] 19:59:00 Test Item Value Reference Range Interpretation Comments GLUCOSE BEDSIDE TESTING (test code 135 MG/DL 70-119 H = GLUBED) GLUCOSE BEDSIDE [id number] 15:51:00 Test Item Value Reference Range Interpretation Comments GLUCOSE BEDSIDE TESTING (test code = 85 MG/DL 70-119 N GLUBED) - NM MYOCRD SPECT R/S [id number] 13:57:00 [facility] : 1965 Sex: M ------- Patient Name: WILMER PARADA Unit No: [id number] EXAMS: CPT CODE: [id number] NM MYOCRD SPECT R/S MULT 95527 Patient was brought to the stress test [...] for processing and reporting. CC: Alexa DELA CRUZ,KIKO,FURNACE ATTENDANT Reginald; Jake Olmos DO [facility] NAME: WILMER PARADA [facility] IMAG[facility] PHYS: Alexa Farrell APRN,[address] : 1965 AGE: 54 SEX: [place], [place] [address] LOC: Aleshia245 W PHONE #: [phone] EXAM DATE: 12/01/2020 STATUS: ADM IN FAX #: [phone] RAD NO: DC Dt: PAGE 1 Signed Report Patient Name: WILMER PARADA Unit No: [id number] EXAMS: CPT CODE: [id number] NM MYOCRD SPECT R/S MULT 36739 <Continued> Technologist: Macy Sepulveda Transcribed Date/Time: 12/03/2020 (9117)- BryannaR.AA6 Orig Print D/T: S: 12/03/2020 (1400) EMILY Rao NAME: [facility] PHYS: Alexa Farrell APRN,C [address] [place] [address] BLVD : 1965 AGE: 54 SEX: [place], [place] [address] LOC: B.245 W PHONE #: [phone] EXAM DATE: 12/01/2020 STATUS: ADM IN FAX #: [phone] RAD NO: DC Dt: PAGE 2 Signed ReportGLUCOSE BEDSIDE [id number] 11:46:00 Test Item Value Reference Range Interpretation Comments GLUCOSE BEDSIDE TESTING (test code 114 MG/DL 70-119 N = GLUBED) [id number] 07:43:00 Test Item Value Reference Range Interpretation Comments CKMB (test code = 1.1 NG/ML 1.0-3.6 N MONOCLONAL CKMB CKMBT) METHODOLOGY. [id number] 07:43:00 Test Item Value Reference Range Interpretation [...] changes in trop onin levelscharacter istic of SD. GLUCOSE BEDSIDE [id number] 07:35:00 Test Item Value Reference Range Interpretation Comments GLUCOSE BEDSIDE TESTING (test code 104 MG/DL 70-119 N = GLUBED) [id number] 07:24:00 Test Item Value Reference Range Interpretation Comments CKMB (test code = CKMBT) NG/ML 1.0-3.6 [id number] 07:24:00 Test Item Value Reference Range Interpretation [...] changes in trop onin levelscharacter istic of SD. BASIC METABOLIC [id number] 06:50:00 Test Item Value Reference Range Interpretation [...] message] (test code = Index/DL The system [employer] HEMINDEX) generated this result transmit breanne reference [...] to interpret this result as normal/abnormal . [id number] 06:50:00 Test Item Value Reference Range Interpretation Comments MAGNESIUM (test code = MAG) 2.2 MG/DL 1.6-2.6 N BASIC METABOLIC [id number] 06:24:00 Test Item Value Reference Range Interpretation [...] message] (test code = Index/DL The system [employer] HEMINDEX) generated this result transmit breanne reference [...] to interpret this result as normal/abnormal . [id number] 06:24:00 Test Item Value Reference Range Interpretation Comments MAGNESIUM (test code = MAG) MG/DL 1.6-2.6 GLUCOSE BEDSIDE [id number] 19:35:00 Test Item Value Reference Range Interpretation Comments GLUCOSE BEDSIDE TESTING (test code 130 MG/DL 70-119 H = GLUBED) GLUCOSE BEDSIDE [id number] 16:35:00 Test Item Value Reference Range Interpretation Comments GLUCOSE BEDSIDE TESTING 103 MG/DL 70-119 N Noti fied Nurse~ (test code = GLUBED) GLUCOSE BEDSIDE [id number] 12:00:00 Test Item Value Reference Range Interpretation Comments GLUCOSE BEDSIDE TESTING 128 MG/DL 70-119 H Noti fied Nurse~ (test code = GLUBED) GLUCOSE BEDSIDE [id number] 08:28:00 Test Item Value Reference Range Interpretation Comments GLUCOSE BEDSIDE TESTING 123 MG/DL 70-119 H Noti fied Nurse~ (test code = GLUBED) GLUCOSE BEDSIDE [id number] 19:40:00 Test Item Value Reference Range Interpretation Comments GLUCOSE BEDSIDE TESTING (test code = 84 MG/DL 70-119 N GLUBED) GLUCOSE BEDSIDE [id number] 16:53:00 Test Item Value Reference Range Interpretation Comments GLUCOSE BEDSIDE TESTING 100 MG/DL 70-119 N Noti fied Nurse~ (test code = GLUBED) GLUCOSE BEDSIDE [id number] 13:00:00 Test Item Value Reference Range Interpretation Comments GLUCOSE BEDSIDE TESTING (test code 128 MG/DL 70-119 H = GLUBED) GLUCOSE BEDSIDE [id number] 08:35:00 Test Item Value Reference Range Interpretation Comments GLUCOSE BEDSIDE TESTING (test code = 95 MG/DL 70-119 N GLUBED) GLUCOSE BEDSIDE [id number] 19:49:00 Test Item Value Reference Range Interpretation Comments GLUCOSE BEDSIDE TESTING (test code 117 MG/DL 70-119 N = GLUBED) GLUCOSE BEDSIDE [id number] 16:52:00 Test Item Value Reference Range Interpretation Comments GLUCOSE BEDSIDE TESTING (test code 103 MG/DL 70-119 N = GLUBED) GLUCOSE BEDSIDE [id number] 12:30:00 Test Item Value Reference Range Interpretation Comments GLUCOSE BEDSIDE TESTING (test code 121 MG/DL 70-119 H = GLUBED) GLUCOSE BEDSIDE [id number] 07:43:00 Test Item Value Reference Range Interpretation Comments GLUCOSE BEDSIDE TESTING (test code = 96 MG/DL 70-119 N GLUBED) COMPREHENSIVE METABOLIC [id number] 05:53:00 Test Item Value Reference Range Interpretation [...] (test code = MG Index/DL The system whic h HEMINDEX) generated this result transmit breanne [...] s maybe code = HDL) depressed if иван chávez is taking Metamizole(Dipy vik) . NON-HDL [...] to interpret this result as normal/abnormal . [id number] 05:53:00 Test Item Value Reference Range Interpretation Comments MAGNESIUM (test code = MAG) 2.2 MG/DL 1.6-2.6 N COMPREHENSIVE METABOLIC [id number] 05:38:00 Test Item Value Reference Range Interpretation [...] See_Comment [Autom ated message] LDL/HDL) The system [employer] h generated this result transmitted ref erence range: 1.48-3.2 2 Avg. The reference r marino was not used to interpret this result as normal/abnor mal. [id number] 05:38:00 Test Item Value Reference Range Interpretation Comments MAGNESIUM (test code = MAG) MG/DL 1.6-2.6 GLYCOSYLATED HEMOGLOBIN (HA1C)2020-11-30 05:21:00 Test Item Value Reference Range Interpretation Comments GLYCOSYLATED HEMOGLOBIN (HA1C) 5.9 % IS-A1C 4.5-5.6 H (test code = GLYHGB) Specimen comments: use blood sample in the labComments to Wind Turbine Mechanical Engineer: use blood sample in the labCBC W/AUTO [id number] 05:12:00 Test Item Value Reference Range Interpretation [...] code = 0.00 K/mm3 0.00-0.05 N NRBC#) [id number] 00:17:00 Test Item Value Reference Range Interpretation Comments CKMB (test code = 1.4 NG/ML 1.0-3.6 N MONOCLONAL CKMB CKMBT) METHODOLOGY. [id number] 00:17:00 Test Item Value Reference Range Interpretation [...] changes in trop onin levelscharacter istic of SD. [id number] 23:57:00 Test Item Value Reference Range Interpretation Comments CKMB (test code = CKMBT) NG/ML 1.0-3.6 [id number] 23:57:00 Test Item Value Reference Range Interpretation [...] changes in trop onin levelscharacter istic of SD. GLUCOSE BEDSIDE [id number] 20:50:00 Test Item Value Reference Range Interpretation Comments GLUCOSE BEDSIDE TESTING (test code 126 MG/DL 70-119 H = GLUBED) [id number] 20:10:00 Test Item Value Reference Range Interpretation Comments CKMB (test code = 1.6 NG/ML 1.0-3.6 N MONOCLONAL CKMB CKMBT) METHODOLOGY. [id number] 20:10:00 Test Item Value Reference Range Interpretation [...] changes in trop onin levelscharacter istic of SD. [id number] 19:57:00 Test Item Value Reference Range Interpretation Comments CKMB (test code = CKMBT) NG/ML 1.0-3.6 [id number] 19:57:00 Test Item Value Reference Range Interpretation [...] changes in trop onin levelscharacter istic of SD. COVID 19 Asymptomatic IH [id number] 18:32:00 Test Item Value Reference Range Interpretation Comments COVID 19 Asymptomatic IH AG (test Negative Neg code = COVNONPUIAG) - CT ANGIO [id number] 17:08:00 [facility] : 1965 Sex: M Patient Name: WILMER PARADA Unit No: [id number] EXAMS: CPT CODE: [id number] CT ANGIO HEAD [address] Dictation location: H37. CT ANGIOGRAM OF THE NECK AND HEAD WITH IV CONTRAST; MIP AND 3-D RECONSTRUCTIONS HISTORY: Left sided weakness COMPARISON: None TECHNIQUE: Axial CT images of the neck and head were obtained with coronal and/or sagittal reformatted views. MIP and/or 3-D reconstruction were obtained of the carotid arteries in the neck and [place]. Automated exposure control, iterative reconstruction [...] No definite occlusion or aneurysm. [facility] Pedro Pablo NAME: WILMER PARADA [address] [place] [address] PHYS: ARVIN. - [place] [address] : 1965 AGE: 54 SEX: M LOC: AleshiaERS PHONE #: [phone] EXAM DATE: 11/29/2020 STATUS: REG ER FAX #: [phone] RAD #: D/C DT PAGE 1 Signed Report (CONTINUED) Patient Name: WILMER PARADA Unit No: [id number] EXAMS: CPT CODE: [id number] CT ANGIO HEAD 85598 <Continued> at 1708 Reported and signed by: Uriah Moran MD CC: Jake Olmos DO Dictated Date/Time: 11/29/2020 (170) Technologist: Luisana Mederos CTDI: 73.04 DLP: 2044.21 Trnscrpt: 11/29/2020 (170) [email or web address] EVERNoreen [place] NAME: [address] PHYS: ARVIN.Dinesh - [place] [address] : 1965 AGE: 54 SEX: M LOC: AleshiaERS PHONE #: [phone] EXAM DATE: 11/29/2020 STATUS: REG ER FAX #: [phone] RAD #: D/C DT PAGE 2 Signed Report Patient Name: WILMER PARADA Unit No: [id number] EXAMS: CPT CODE: [id number] CT ANGIO HEAD [address]291 <Continued> Orig Print D/T: S: 11/29/2020 (1711) EVERNoreen Pedro Pablo NAME: [address] PHYS: RADAMES - [place] [id number] : 1965 AGE: 54 SEX: M LOC: AleshiaERS PHONE #: [phone] EXAM DATE: 11/29/2020 STATUS: REG ER FAX #: [phone] RAD #: D/C DT PAGE 3 Signed Report- CT ANGIO [id number] 17:08:00 [facility] : 1965 Sex: M Patient Name: WILMER PARADA Unit No: [id number] EXAMS: CPT CODE: [id number] CT ANGIO NECK 48920 Dictation location: H37. CT ANGIOGRAM OF THE NECK AND HEAD WITH IV CONTRAST; MIP AND 3-D RECONSTRUCTIONS HISTORY: Left sided weakness COMPARISON: None TECHNIQUE: Axial CT images of the neck and head were obtained with coronal and/or sagittal reformatted views. MIP and/or 3-D reconstruction were obtained of the carotid arteries in the neck and [place]. Automated exposure control, iterative reconstruction [...] is limited. No definite occlusion or aneurysm. EMILY Rao NAME: [address] PHYS: ARVIN.Dinesh - [place] [address] : 1965 AGE: 54 SEX: M LOC: B.ERS PHONE #: [phone] EXAM DATE: 11/29/2020 STATUS: REG ER FAX #: [phone] RAD #: D/C DT PAGE 1 Signed Report (CONTINUED) Patient Name: WILMER PARADA Unit No: [id number] EXAMS: CPT CODE: [id number] CT ANGIO NECK 59042 <Continued> at 1708 Reported and signed by: Uriah Moran MD CC: Jake Olmos DO Dictated Date/Time: 11/29/2020 (1708) Technologist: Luisana Mederos CTDI: 0 DLP: 0 Trnscrpt: 11/29/2020 (1708) [email or web address] EMILY Rao NAME: [address] PHYS: ARVIN.Dinesh - [place] [address] : 1965 AGE: 54 SEX: M LOC: B.ERS PHONE #: [phone] EXAM DATE: 11/29/2020 STATUS: REG ER FAX #: [phone] RAD #: D/C DT PAGE 2 Signed Report Patient Name: WILMER PARADA Unit No: [id number] EXAMS: CPT CODE: [id number] CT ANGIO NECK 30670 <Continued> Orig Print D/T: S: 11/29/2020 (1711) EMILY Rao NAME: [address] PHYS: ARVIN.Dinesh - Jake Olmos, [place] [address] : 1965 AGE: 54 SEX: M LOC: LISA PHONE #: [phone] EXAM DATE: 11/29/2020 STATUS: REG ER FAX #: [phone] RAD #: D/C DT PAGE 3 Signed Report- XR CHEST 1 [id number] 11:48:00 [facility] 1965 Sex: M Name: WILMER PARADA [facility] : 1965 Age/S: 54 / M [id number] Unit #: [id number] Loc: [place] [address] Phys: Maximino Ham MD Acct: [id number] Dis Date: Status: REG ER PHONE #: [phone] Exam Date: 11/29/2020 110 FAX #: Reason: chest pain, stroke symptoms EXAMS: CPT: [id number] XR CHEST 1 V 96870 Fluoro Time: DAP (Gy m2): Air Kerma [...] PAGE 1 Signed Report Name: WILMER PARADA Beulah : 1965 Age/S: 54 / M [id number] Unit #: [id number] Loc: [place] [address] Phys: Maximino Ham MD Acct: [id number] Dis Date: Status: REG ER PHONE #: [phone] Exam Date: 11/29/2020 1108 FAX #: Reason: chest pain, stroke symptoms EXAMS: CPT: [id number] XR CHEST 1 V 25081 Fluoro Time: DAP (Gy m2): Air Kerma (mGy): <Continued> Technologist: Bandar Tirado RT(R)(CT) Trnscb Date/Time: 11/29/2020 (1148) [email or web address] Orig Print D/T: S: 11/29/2020 (8061) PAGE 2 Signed Report- CT ABD PELVIS W/[id number] 11:20:00 [facility] : 1965 Sex: M Name: WILMER PARADA Beulah : 1965 Age/S: 54 / M [id number] Unit #: [id number] Loc: [place] [address] Phys: Maximino Ham MD Acct: [id number] Dis Date: Status: REG ER PHONE #: [phone] Exam Date: 11/29/20201045 FAX #: Reason: rule out dissection EXAMS: CPT: [id number] CT ABD PELVIS W/CONT 05003 LOCATION: T18 EXAM: CT CHEST WITH CONTRAST [...] 1 Signed Report (CONTINUED) Name: WILMER PARADA [facility] : 1965 Age/S: 54 / M [id number] Unit #: [id number] Loc: [place] [address] Phys: Maximino Ham MD Acct: [id number] Dis Date: Status: REG ER PHONE #: [phone] Exam Date: 11/29/2020 1046 FAX #: Reason: rule out dissection EXAMS: CPT: [id number] CT ABD PELVIS W/CONT 16562 <Continued> at 1120 Reported and signed by: Bill Lake M.D. CC: Maximino Ham MD Technologist:Gala Menard, RT(R); Nikole CTDI: DLP: Trnscb Date/Time: 11/29/2020 (1120) [email or web address] Orig Print D/T: S: 11/29/2020 (2197) PAGE 2 Signed Report- CT CHEST W/CONTRAST 2020-11-29 11:20:00 [facility] : 1965 Sex: M Name: WILMER PARADA [facility] : 1965 Age/S: 54 / M [address] Unit #: [id number] Loc: [place] [address] Phys: Maximino Ham MD Acct: [id number] Dis Date: Status: REG ER PHONE #: [phone] Exam Date: 11/29/2020 1056 FAX #: Reason: rule out dissection EXAMS: CPT: [id number] CT CHEST W/CONTRAST 03420 LOCATION: T18 EXAM: CT CHEST WITH CONTRAST [...] 1 Signed Report (CONTINUED) Name: WILMER PARADA [facility] : 1965 Age/S: 54 / M [address] Unit #: [id number] Loc: [place] [address] Phys: Maximino Ham MD Acct: [id number] Dis Date: Status: REG ER PHONE #: [phone] Exam Date: 11/29/2020 1056 FAX #: Reason: rule out dissection EXAMS: CPT: [id number] CT CHEST W/CONTRAST 16138 <Continued> at 1120 Reported and signed by: Bill Lake M.D. CC: Maximino Ham MD Technologist:Gala Menard, RT(R); Nikole CTDI: DLP: Trnscb Date/Time: 11/29/2020 (1120) [email or web address] Orig Print D/T: S: 11/29/2020 (1123) PAGE 2 Signed Report- CT HEAD/BRAIN W/O CONT 2020-11-29 11:15:00 [facility] : 1965 Sex: M Name: WILMER PARADA : 1965 Age/S: 54 / M [address] Unit #: [id number] Loc: [place] [address] Phys: Maximino Ham MD Acct: [id number] Dis Date: Status: REG ER PHONE #: [phone] Exam Date: 11/29/2020 1045 FAX #: Reason: CVA symptoms EXAMS: CPT: [id number] CT HEAD/BRAIN W/O CONT 19812 EX AM: - CT HEAD/BRAIN W/O CONT [...] signed by: Cipriano Norton M.D. CC: Maximino Hma MD Technologist:Nikole Rider, RT(R) CTDI: DLP: Trnscb Date/Time: 11/29/2020 (1115) [email or web address] Orig Print D/T: S: 11/29/2020 (1118) PAGE 1 Signed ReportCOMPREHENSIVE METABOLIC [id number] 10:03:00 Test Item Value Reference Range Interpretation [...] N code = ALKP) Completed by Nursing: [id number] 10:03:00 Test Item Value Reference Range Interpretation [...] yby method. Completed by Nursing: NOCBC W/AUTO [id number] 09:45:00 Test Item Value Reference Range Interpretation [...]
[2021-07-08] MEDS ORDERED: FENTANYL CITR 100 MCG/2 ML ONE ×2 (17:02→19:34)
[2021-07-08 17:08] LABS: Absolute Lymphocytes (CBC) 2.2 K/uL (0.7-4.9); Basophils % 0.9 % (0-1.3); Hematocrit 44.2 % (39.6-49.0); Lymphocytes % 40.8 % (15.3-44.8); MPV 8.8 fL (7.6-11.3); RBC Red Blood Cell Count 5.49 M/uL (4.33-5.43)
[2021-07-08 17:14] LABS: Protime INR 1.06
[2021-07-08 17:34] LABS: Albumin 3.5 g/dL (3.4-5.0); Bilirubin Direct 0.2 mg/dL (0-0.2); Bilirubin Total 0.9 mg/dL (0.2-1.0); Magnesium 1.9 mg/dL (1.8-2.4); Potassium 3.4 mmol/L (3.5-5.1); Protein, Total 8.2 g/dL (6.4-8.2); Troponin (Emerg Dept Use Only) 0.03 ng/mL (0.0-0.045)
--- NOTE | 2021-07-08 17:40 | RAD REPORT ---
EXAM DESCRIPTION: RAD - Chest Single View - 07/08/2021 5:29 pm CLINICAL HISTORY: CHEST PAIN COMPARISON: Chest Single View dated 04/12/2021; Chest Single View dated 03/11/2021; Chest Single View d ated 11/16/2018; Chest Single View dated 02/18/2018; Stone Protocol dated 10/20/2020 FINDINGS: Lines: None. Lungs: No evidence of edema or pneumonia. The left lung base is not well visualized which is a chroni c finding. Pleural: No significant pleural effusions or pneumothorax. Cardiac: Cardiomegaly. Pacemaker/ICD. Bones: No acute fractures. Other: IMPRESSION: Opacities at the left lung base favored to be due to underpenetration. This finding has been present on prior exams. No definite acute process identified.
--- NOTE | 2021-07-08 18:44 | ER ---
Nurse's Notes [facility] Name: Bryan Watts Age: 55 yrs Sex: Male : 1965 Arrival Date: 07/08/2021 Time: 16:39 Bed 7 Private MD: Diagnosis: Chest pain, unspecified;Hypertensive urgency Presentation: 07/08 16:54 Chief complaint: Patient states: mid sternal chest pain began last nigh and radiates to vg1 Left arm; states shortness of breath, cough, and feels tired. Denies NVD. Coronavirus screen: Vaccine status: Patient reports being unvaccinated. Client denies travel out of the [place] in the last 14 days. Ebola Screen: Patient negative for fever greater than or equal to 101.5 degrees Fahrenheit, and additional compatible Ebola Virus Disease symptoms. Initial Sepsis Screen: Does the patient meet any 2 criteria? No. Patient's initial sepsis screen is negative. Does the patient have a suspected source of infection? No. Patient's initial sepsis screen is negative. Risk Assessment: Do you want to hurt yourself or someone else? Patient reports no desire to harm self or others. Onset of symptoms was July 07, 2021. 16:54 Method Of Arrival: Wheelchair vg1 16:54 Acuity: GABBY 2 vg1 Triage Assessment: 16:54 General: Appears uncomfortable, Behavior is anxious, drowsy. Pain: Complains of pain in vg1 mid-sternal area Pain radiates to left arm Pain currently is 10 out of 10 on a pain scale. Cardiovascular: Reports fatigue, Patient's skin is warm and dry. Chest pain is described as Pain is 10 out of 10 on a pain scale. radiates to left arm(s) began 1 day ago. Historical: - Allergies: 16:42 No Known Allergies; ll1 - Home Meds: 20:00 amlodipine 10 mg tab 1 tab once daily [Active]; atorvastatin 80 mg Oral tab 1 tab once lp1 daily [Active]; carvedilol 25 mg Oral tab 1 tab 2 times per day [Active]; hydralazine 100 mg Oral tab 1 tab 4 times per day [Active]; lisinopril 20 mg Oral tab 1 tab twice a day [Active]; - PMHx: 16:42 Diabetes - IDDM; Hyperlipidemia; Hypertension; ll1 - PSHx: 16:42 Pace maker; ll1 - Immunization history:: Client reports having NOT received the Covid vaccine. - Social history:: Smoking status: Patient denies any tobacco usage or history of. Screenin:49 Abuse screen: Denies threats or abuse. Nutritional screening: No deficits noted. ll1 Tuberculosis screening: No symptoms or risk factors identified. 21:49 Fall Risk None identified. lp1 Assessment: 16:55 General: SEE TRIAGE NOTE. bp 18:09 Reassessment: No changes from previously documented assessment. Patient and/or family bp updated on plan of care and expected duration. Pain level reassessed. 19:25 Reassessment: Patient reports chest pain to center of chest, rated 7/10 on pain scale; lp1 Verbal order from Provider for Fentanyl 50mcg IV now. Neuro: Level of Consciousness is awake, alert, obeys commands. Cardiovascular: Patient's skin is warm and dry. Respiratory: Respiratory effort is even, unlabored. Derm: Skin is intact, Skin is dry, Skin is normal. Vital Signs: 16:54 BP 172 / 102; Pulse 95; Resp 17; Temp 97.7; Pulse Ox 98% ; Weight 117.93 kg; Height 6 vg1 ft. 2 in. (187.96 cm); Pain 10/10; 18:09 BP 159 / 116; Pulse 81; Resp 18; Pulse Ox 98% ; bp 19:28 BP 147 / 94; Pulse 82; Resp 17; Pulse Ox 100% on R/A; Pain 7/10; lp1 20:45 BP 139 / 85; Pulse 92; Resp 20; Pulse Ox 98% on R/A; lp1 16:54 Body Mass Index 33.38 (117.93 kg, 187.96 cm) vg1 ED Course: 16:39 Patient arrived in ED. kc5 16:42 Arm band placed on Patient placed in an exam room, on a stretcher. ll1 16:43 Kalen Kahn PA is PHCP. jr8 16:43 Jamil Parish MD is Attending Physician. jr8 16:45 Sha Araujo, SAMUEL is Primary Nurse. bp 16:54 EKG completed in triage. Results shown to . vg1 16:56 Triage completed. vg1 17:00 Inserted saline lock: 18 gauge in right antecubital area, using aseptic technique. bp Blood collected. 17:29 XRAY Chest (1 view) In Process Unspecified. EDMS 18:42 Shay Salmon DO is Hospitalizing Provider. jr8 19:28 Patient has correct armband on for positive identification. Call light in reach. lp1 media monitor on. Pulse ox on. NIBP on. 19:28 No provider procedures requiring assistance completed. Patient admitted, IV remains in lp1 place. Patient maintains SpO2 saturation greater than 95% on room air. Administered Medications: 17:05 Drug: fentaNYL (PF) 50 mcg Route: IVP; Site: right antecubital; bp 18:10 Follow up: Response: Pain is decreased bp 19:42 Drug: fentaNYL (PF) 50 mcg {Note: 0.} Route: IVP; Site: right antecubital; lp1 20:30 Follow up: Response: No adverse reaction lp1 Outcome: 18:43 Decision to Hospitalize by Provider. jr8 19:28 Condition: stable lp1 19:28 Instructed on the need for admit. 21:48 Admitted to Med/surg room 220, Report called to Report called by SAMUEL Thrasher to ursula Crain RN 21:49 Patient left the ED. lp1 Signatures: Dispatcher [employer] EDIL Nikoel Jaquez RN RN lp1 Kalen Kahn PA PA jr8 Peltier, Brian, RN RN Mita Nesbitt RN RN 1 Mariella Ro, RN RN ll1 Esperanza Mello kc5 Corrections: (The following items were deleted from the chart) 21:49 21:48 Admitted to Med/surg room 220, Report called to Report called by SAMUEL Thrasher lp1 [facility]
--- NOTE | 2021-07-08 18:44 | EDPHYS ---
Physician Documentation [facility] Name: Bryan Watts Age: 55 yrs Sex: Male : 1965 Arrival Date: 07/08/2021 Time: 16:39 Bed 7 Private MD: ED Physician Jamil Parish HPI: 07/08 17:59 This 55 yrs old Black Male presents to ER via Wheelchair with complaints of Chest Pain, jr8 Possible Cardiac Related. 17:59 The patient or guardian reports chest pain that is located primarily in the substernal jr8 area. Onset: acutely, today. The pain radiates to the left arm. Associated signs and symptoms: The patient has no apparent associated signs or symptoms. The chest pain is described as a pressure. Duration: The patient or guardian reports a single episode, that is still ongoing. Modifying factors: The symptoms are alleviated by nothing. the symptoms are aggravated by nothing. Severity of pain: At its worst the pain was moderate in the emergency department the pain is unchanged. The patient has experienced similar episodes in the past, a few times, but today's symptoms are worse. The patient has not recently seen a physician. Historical: - Allergies: 16:42 No Known Allergies; ll1 - Home Meds: 20:00 amlodipine 10 mg tab 1 tab once daily [Active]; atorvastatin 80 mg Oral tab 1 tab once lp1 daily [Active]; carvedilol 25 mg Oral tab 1 tab 2 times per day [Active]; hydralazine 100 mg Oral tab 1 tab 4 times per day [Active]; lisinopril 20 mg Oral tab 1 tab twice a day [Active]; - PMHx: 16:42 Diabetes - IDDM; Hyperlipidemia; Hypertension; ll1 - PSHx: 16:42 Pace maker; ll1 - Immunization history:: Client reports having NOT received the Covid vaccine. - Social history:: Smoking status: Patient denies any tobacco usage or history of. ROS: 17:59 Eyes: Negative for injury, pain, redness, and discharge, ENT: Negative for injury, jr8 pain, and discharge, Neck: Negative for injury, pain, and swelling, Respiratory: Negative for shortness of breath, cough, wheezing, and pleuritic chest pain, Abdomen/GI: Negative for abdominal pain, nausea, vomiting, diarrhea, and constipation, Back: Negative for injury and pain, MS/Extremity: Negative for injury and deformity, Skin: Negative for injury, rash, and discoloration, Neuro: Negative for headache, weakness, numbness, tingling, and seizure. 17:59 Cardiovascular: Positive for chest pain, Negative for edema, orthopnea, palpitations, paroxysmal nocturnal dyspnea. Exam: 17:59 Constitutional: This is a well developed, well nourished patient who is awake, alert, jr8 and in no acute distress. Neck: Trachea midline, no thyromegaly or masses palpated, and no cervical lymphadenopathy. Supple, full range of motion without nuchal rigidity, or vertebral point tenderness. No Meningismus. Chest/axilla: Normal chest wall appearance and motion. Nontender with no deformity. No lesions are appreciated. Cardiovascular: Regular rate and rhythm with a normal S1 and S2. No gallops, murmurs, or rubs. Normal PMI, no JVD. No pulse deficits. Respiratory: Lungs have equal breath sounds bilaterally, clear to auscultation and percussion. No rales, rhonchi or wheezes noted. No increased work of breathing, no retractions or nasal flaring. Abdomen/GI: Soft, non-tender, with normal bowel sounds. No distension or tympany. No guarding or rebound. No evidence of tenderness throughout. Back: No spinal tenderness. No costovertebral tenderness. Full range of motion. Skin: Warm, dry with normal turgor. Normal color with no rashes, no lesions, and no evidence of cellulitis. MS/ Extremity: Pulses equal, no cyanosis. Neurovascular intact. Full, normal range of motion. Neuro: Awake and alert, GCS 15, oriented to person, place, time, and situation. Cranial nerves II-XII grossly intact. Motor strength 5/5 in all extremities. Sensory grossly intact. Vital Signs: 16:54 BP 172 / 102; Pulse 95; Resp 17; Temp 97.7; Pulse Ox 98% ; Weight 117.93 kg; Height 6 vg1 ft. 2 in. (187.96 cm); Pain 10/10; 18:09 BP 159 / 116; Pulse 81; Resp 18; Pulse Ox 98% ; bp 19:28 BP 147 / 94; Pulse 82; Resp 17; Pulse Ox 100% on R/A; Pain 7/10; lp1 20:45 BP 139 / 85; Pulse 92; Resp 20; Pulse Ox 98% on R/A; lp1 16:54 Body Mass Index 33.38 (117.93 kg, 187.96 cm) vg1 MDM: 16:43 Patient medically screened. jr8 18:42 The patient was not given aspirin in the Emergency Department. Patient reports taking jr8 aspirin within the past 24 hours. Data reviewed: vital signs, nurses notes, lab test result(s), EKG, radiologic studies, plain films. Data interpreted: Pulse oximetry: on room air is 98 %. Interpretation: normal. Counseling: I had a detailed discussion with the patient and/or guardian regarding: the historical points, exam findings, and any diagnostic results supporting the discharge/admit diagnosis, lab results, radiology results, the need for further work-up and treatment in the hospital. ED course: Patient still having chest pain. Will admit for further evaluation.. 07/08 16:43 Order name: Basic Metabolic Panel; Complete Time: 17:48 07/08 16:43 Order name: CBC with Diff; Complete Time: 17:48 07/08 16:43 Order name: LFT's; Complete Time: 17:48 07/08 16:43 Order name: Magnesium; Complete Time: 17:48 07/08 16:43 Order name: NT PRO-BNP; Complete Time: 17:48 07/08 16:43 Order name: PT-INR; Complete Time: 17:48 07/08 16:43 Order name: Troponin (emerg Dept Use Only); Complete Time: 17:48 07/08 16:43 Order name: XRAY Chest (1 view); Complete Time: 17:48 07/08 16:43 Order name: EKG; Complete Time: 16:44 07/08 16:43 Order name: Cardiac monitoring; Complete Time: 16:49 07/08 18:42 Order name: COVID-19 (Coronavirus) Document "Date of Onset" if Symptomatic 07/08 20:15 Order name: SARS-COV-2 RT PCR; Complete Time: 20:38 EDMS 07/08 16:43 Order name: EKG - Nurse/Tech; Complete Time: 16:49 07/08 16:43 Order name: IV Saline Lock; Complete Time: 16:49 jr8 07/08 16:43 Order name: Labs collected and sent; Complete Time: 16:49 jr8 07/08 16:43 Order name: O2 Per Protocol; Complete Time: 16:49 jr8 07/08 16:43 Order name: O2 Sat Monitoring; Complete Time: 16:49 jr8 Administered Medications: 17:05 Drug: fentaNYL (PF) 50 mcg Route: IVP; Site: right antecubital; bp 18:10 Follow up: Response: Pain is decreased bp 19:42 Drug: fentaNYL (PF) 50 mcg {Note: 0.} Route: IVP; Site: right antecubital; lp1 20:30 Follow up: Response: No adverse reaction lp1 Disposition: 07/09 07:07 Co-signature as Attending Physician, Jamil Parish MD I agree with the assessment and jaime plan of care. Chart complete. Disposition Summary: 07/08/21 18:43 Hospitalization Ordered Hospitalization Status: Observation jr8 Provider: Shay Salmon [facility] Location: Telemetry/MedSurg (observation) jr8 Condition: Stable jr8 Problem: new jr8 Symptoms: are unchanged jr8 Bed/Room Type: Standard [facility] Room Assignment: 220(07/08/21 20:18) Diagnosis - Chest pain, unspecified jr8 - Hypertensive urgency jr8 Forms: - Medication Reconciliation Form jr8 - SBAR form jr8 Signatures: Dispatcher [employer] Jamil Potter MD MD cha Pena, Laura RN RN lp1 Kalen Kahn PA PA jr8 Macy Vazquez RN RN Sha Stephens RN RN bp Garcia, Victoria RN RN vg1 Mariella Ro RN RN ll1 Corrections: (The following items were deleted from the chart) 07/08 20:18 18:43 jr8 cg
--- NOTE | 2021-07-08 19:11 | P.HP ---
Certification for Inpatient Patient admitted to: Observation With expected LOS: <2 Midnights Patient will require the following post-hospital care: None Practitioner: I am a practitioner with admitting privileges, knowledge of patient current condition, hospital course, and medical plan of care. Services: Services provided to patient in accordance with Admission requirements found in Title 42 Section 412.3 of the Code of Federal Regulations Patient History Date of Service: 07/08/21 Primary Care Provider: [facility] Reason for admission: Chest pain History of Present Illness: 55-year-old -Georgian male with history of chronic systolic congestive heart failure, diabetes type 2, hypertension, hyperlipidemia presents to the emergency department for chest pain. Patient reports that his pain began approximate 24 hours ago is described as sharp radiating to the left arm with some associated dizziness. No aggravating or relieving factors noted. Patient does not report associated cough as well. Patient was evaluated in the emergency department labs were significant for potassium 3.4 BNP 3376 troponin 0.03 chest x-ray unchanged from previous EKG shows paced rhythm. ED provider wishes to admit her observation for chest pain rule out. Patient reports unsure of last echocardiogram or heart catheterization but reports probably a few years ago. Allergies No Known Allergies Allergy (Unverified 04/13/21 01:57) Home Medications: Amlodipine Besylate 10 mg PO DAILY 05/27/12 Metformin HCl [Glucophage*] 500 mg PO DAILY 10/18/15 Nitroglycerin 0.4 mg SL PRN 10/19/15 Hydralazine [Apresoline*] 100 mg PO QID 01/28/17 Doxazosin [Cardura*] 2 mg PO BID #60 tab 01/29/17 Furosemide [Lasix*] 40 mg PO DAILY #30 tab 01/29/17 lisinopriL [Prinivil*] 40 mg PO DAILY #60 tab 11/18/18 - Past Medical/Surgical History Diabetic: Yes -: Diabetes type 2 -: HTN -: CAD -: Chronic systolic congestive heart failure -: RIGHT KNEE SX -: ARTIFICIAL LEFT EYE- 1977 -: Cardiac catherization with stent -: pacemaker Psychosocial/ Personal History: patient lives at home with family - Family History Father -: Heart disease, Hypertension Mother -: Diabetes - Social History Smoking Status: Never smoker Alcohol use: No CD- Drugs: No Caffeine use: No Place of Residence: Home Review of Systems 10-point ROS is otherwise unremarkable Respiratory: Cough Cardiovascular: Chest Pain Physical Examination - Physical Exam General: Alert, In no apparent distress, Oriented x3 HEENT: Atraumatic, PERRLA, Mucous membr. moist/pink, EOMI, Sclerae nonicteric Neck: Supple, 2+ carotid pulse no bruit, No LAD, Without JVD or thyroid abnormality Respiratory: Diminished Cardiovascular: Regular rate/rhythm, Normal S1 S2, Edema (Trace edema lower extremities) Capillary refill: <2 Seconds Gastrointestinal: Normal bowel sounds, No tenderness Musculoskeletal: No tenderness Integumentary: No rashes Neurological: Normal gait, Normal speech, Normal strength at 5/5 x4 extr, Normal tone, Normal affect Lymphatics: No axilla or inguinal lymphadenopathy - Studies Laboratory Data (last 24 hrs) 07/08/21 17:00: PT 12.2, INR 1.06 07/08/21 17:00: WBC 5.40, Hgb 14.1, Hct 44.2, Plt Count 228 07/08/21 17:00: Sodium 141, Potassium 3.4 L, BUN 12, Creatinine 1.22, Glucose 100, Magnesium 1.9, Total Bilirubin 0.9, AST 22, ALT 21, Alkaline Phosphatase 64 Assessment and Plan - Plan Assessment: Chest pain rule out ACS Acute on chronic systolic congestive heart failure Diabetes type 2 Hypertension Hyperlipidemia Hypokalemia Plan: Chest pain rule out ACS: Trend troponins, monitor on telemetry, cardiology consulted continue with aspirin, continue other home medications patient unsure of these at this time. Acute on chronic systolic congestive heart failure: Patient takes Lasix at home unsure of dose, does report cough, BNP is elevated and patient does have some trace edema of the lower extremities will provide patient with IV Lasix overnight. Last echocardiogram available for review done in 2019 demonstrated ejection fraction of 42% we will review her medications and ensure patient is on appropriate medications including beta-brii and LANA inhibitor Diabetes type 2: A [facility] Accu-Chek, sliding scale insulin therapy, A1c with morning labs Hypertension: Obtain an continue home medication and adjust as necessary Hyperlipidemia: Obtain and continue medication Hypokalemia: Protocol in place. DVT PPX: Lovenox Code status: Full Discharge Plan: Home Plan to discharge in: 24 Hours - Advance Directives Does patient have a Living Will: No Does patient have a Durable POA for Healthcare: No - Code Status/Comfort Care Code Status Assessed: Yes (Full code) Critical Care: No Time Spent Managing Pts Care (In Minutes): 55
[2021-07-08 21:53] VITALS: BMI 38.6
[2021-07-08] MEDS ORDERED: ONDANSETRON 4 MG/2 ML VIAL IV PRN (22:10)
[2021-07-08] MEDS: INSULIN -REGULAR HUMAN 50 UNIT/0.5 ML ML SQ SCH (22:10)
[2021-07-08] MEDS: TRAMADOL HCL 50 MG TAB PO PRN (22:48)
--- NOTE | 2021-07-09 06:08 | P.DS ---
Admission Date: 07/09/21 Discharge Date: 07/11/21 Primary Care Provider: ELIANA STONE Disposition: ROUTINE DISCHARGE Discharge Condition: GOOD Reason for Admission: Chest pain Consultations: Cardiology-Dr. Grimes Procedures: COVID: Negative CXR: COMPARISON: Chest Single View dated 04/12/2021; Chest Single View dated 03/11/2021; Chest Single View dated 11/16/2018; Chest Single View dated 02/18/2018; Stone Protocol dated 10/20/2020 FINDINGS: Lines: None. Lungs: No evidence of edema or pneumonia. The left lung base is not well visualized which is a chronic finding. Pleural: No significant pleural effusions or pneumothorax. Cardiac: Cardiomegaly. Pacemaker/ICD. Bones: No acute fractures. IMPRESSION: Opacities at the left lung base favored to be due to underpenetration. This finding has been present on prior exams. No definite acute process identified. Cardiac stress test: COMPARISON: 2018 TECHNIQUE: The patient was administered 10. mCi of Tc 99m Sestamibi prior to resting SPECT imaging of the heart. The patient was then administered 30. MCi of Tc 99m Sestamibi following exercise or pharmacologic stress. Multiplanar SPECT images were reviewed. FINDINGS: Moderate diminished radiotracer activity involves the inferior left ventricular myocardium on rest and stress sequences Small to moderate diminished radiotracer activity involves the lateral left ventricular myocardium on rest and stress sequences The left ventricular ejection fraction equals 15% IMPRESSION: Moderate fixed perfusion defect involving the inferior left ventricular myocardium consistent with infarct Small to moderate fixed perfusion defect involving the lateral left ventricular myocardium consistent with infarct No evidence of stress-induced ischemia Echocardiogram: CARDIAC HISTORY: CATHERIZATION: YES SURGERY: NO PROSTHETIC VALVE: NO PACEMAKER: YES MEASUREMENTS (cm) DIASTOLIC (NORMALS) SYSTOLIC (NORMALS) IVSd 1.4 (0.6-1.2) LA Diam 2.9 (1.9-4.0) LVEF 32% LVIDd 6.2 (3.5-5.7) LVIDs 5.2 (2.0-3.5) %FS 16% LVPWd 1.4 (0.6-1.2) Ao Diam 3.3 (2.0-3.7) 2 DIMENSIONAL ASSESSMENT: RIGHT ATRIUM: NORMAL LEFT ATRIUM: DILATED RIGHT VENTRICLE: NORMAL LEFT VENTRICLE: DILATED TRICUSPID VALVE: NORMAL MITRAL VALVE: NORMAL PULMONIC VALVE: NORMAL AORTIC VALVE: NORMAL PERICARDIAL EFFUSION: NONE AORTIC ROOT: NORMAL LEFT VENTRICULAR WALL MOTION: SEVERE GLOBAL HYPOKINESIS. DOPPLER/COLOR FLOW: MILD TRICUSPID REGURGITATION. COMMENTS: MILD TRICUSPID REGURGITATION. DILATED LEFT ATRIUM AND LEFT VENTRICLE WITH SEVERE GLOBAL HYPOKINESIS. LEFT VENTRICULAR EJECTION FRACTION 35%. Medical Problem List: Chest pain and shortness of breath secondary to acute on chronic systolic CHF with ejection fraction 32% Hypertension uncontrolled Hyperlipidemia Diabetes mellitus type 2 Hypokalemia History of pacemaker Brief History of Present Illness: 55-year-old -Thai male with history of chronic systolic congestive heart failure, diabetes type 2, hypertension, hyperlipidemia presents to the emergency department for chest pain. Chest pain radiating to the left arm. Dizziness was associated with this. Patient was admitted for further evaluation and treatment. Hospital Course: Patient presented with chest pain and shortness of breath. Patient found to have new acute on chronic systolic CHF with ejection fraction of 32%. Patient was seen and evaluated further. Patient required IV diuretic therapy. Patient also started on medication for blood pressure. Medications have been adjusted. Patient was seen and evaluated by cardiology. Cardiology recommended cardiac stress test to further evaluate. No stress-induced ischemia noted. Cardiology did recommend a LifeVest for the patient due to his new CHF. At discharge the patient will continue with LifeVest. Education provided. At discharge patient will continue with a 1500 cc/day fluid restriction and low-salt diet. New medications include metoprolol, lisinopril, Lasix and Aldactone. At discharge the patient will continue with metoprolol 50 mg 1 pill twice daily, lisinopril 5 mg daily, Lasix 40 mg daily, Aldactone 25 mg daily, and aspirin 81 mg daily. Recommend follow-up with cardiology in 1 to 2 weeks to follow-up this hospitalization. Patient will likely require heart catheterization in the future to further evaluate. This can be done with the help of cardiology. Recommend to recheck labBMP to monitor his progress. Education on CHF provided. Recommend follow-up with his PCP within 1 week to follow-up his hospitalization. Patient will see cardiology on Thursday at 3 PM. Patient with hypertension. His blood pressure was uncontrolled upon admission. Medications were provided and adjusted. Blood pressure much improved with current regimen. Medication have been changed at discharge. He will no longer take Carduare, Hydralazine, or Norvasc. At discharge patient will continue with metoprolol 50 mg 1 pill twice daily and lisinopril 5 mg daily. Recommend to maintain blood pressure less than 130/80. If blood pressure remains above 140/90 further adjustment in medication may be required. This can be done with the help of his PCP or cardiology. Patient with hyperlipidemia. LDL 103. Medication was initiated. At discharge patient will continue with Lipitor 10 mg daily. Recommend to recheck labCMP and fasting lipid panel in 2 to 4 weeks to monitor his progress. Further adjustment can be done by his PCP or cardiology. Patient with diabetes mellitus type 2. Patient takes Glucophage. Hemoglobin A1c 5.6. Recommend to monitor his blood sugars at least twice daily. Recommend to maintain blood sugar less than 140 fasting and less than 200 after meals. Patient may continue with Glucophage 500 mg daily. Recommend to recheck hemoglobin A1c every 3 months to monitor his progress. Further adjustment in medication can be done by his PCP. Patient likely with underlying obstructive sleep apnea. Recommend outpatient sleep study to further evaluate. If abnormal patient may require CPAP machine. Education on sleep apnea provided. Patient with pacemaker. As mentioned above patient will follow up with cardiology next week. He has an appointment already made for Thursday at 3 PM. Patient may require further evaluation by electrophysiology as the patient will have a LifeVest at discharge. Cardiology may plan for pacemaker with AICD. Vital Signs/Physical Exam: Temp Pulse Resp BP Pulse Ox 97.8 F 65 20 143/80 H 99 07/09/21 04:00 07/09/21 04:00 07/09/21 04:00 07/09/21 04:00 07/09/21 04:00 General: Alert, In no apparent distress, Oriented x3, Cooperative HEENT: Atraumatic Neck: Supple Respiratory: Clear to auscultation bilaterally, Normal air movement Cardiovascular: Normal pulses, Regular rate/rhythm Gastrointestinal: Normal bowel sounds, No tenderness, No masses, No rebound, No guarding Musculoskeletal: No erythema, No tenderness, No warmth Integumentary: No tenderness/swelling Neurological: Normal speech, Normal strength at 5/5 x4 extr, Normal tone Laboratory Data at Discharge: WBC 5.40 K/uL (4.3-10.9) 07/08/21 17:00 Hgb 14.1 g/dL (13.6-17.9) 07/08/21 17:00 Hct 44.2 % (39.6-49.0) 07/08/21 17:00 Plt Count 228 K/uL (152-406) 07/08/21 17:00 PT 12.2 SECONDS (9.5-12.5) 07/08/21 17:00 INR 1.06 07/08/21 17:00 Sodium 141 mmol/L (136-145) 07/08/21 17:00 Potassium 3.4 mmol/L (3.5-5.1) L 07/08/21 17:00 BUN 12 mg/dL (7-18) 07/08/21 17:00 Creatinine 1.22 mg/dL (0.55-1.3) 07/08/21 17:00 Glucose 100 mg/dL (74-106) 07/08/21 17:00 Magnesium 1.9 mg/dL (1.8-2.4) 07/08/21 17:00 Total Bilirubin 0.9 mg/dL (0.2-1.0) 07/08/21 17:00 AST 22 U/L (15-37) 07/08/21 17:00 ALT 21 U/L (12-78) 07/08/21 17:00 Alkaline Phosphatase 64 U/L (45-117) 07/08/21 17:00 Troponin I 0.03 ng/mL (0.0-0.045) 07/08/21 22:27 Home Medications: Metformin HCl [Glucophage*] 500 mg PO DAILY 10/18/15 Nitroglycerin 0.4 mg SL PRN 10/19/15 Aspirin [Aspirin EC 81 MG] 81 mg PO DAILY #90 tablet. 07/10/21 Atorvastatin Calcium [Lipitor*] 10 mg PO BEDTIME #30 tab 07/10/21 Furosemide [Lasix*] 40 mg PO DAILY #30 tab 07/10/21 Metoprolol Tartrate [Lopressor*] 50 mg PO BID #60 tab 07/10/21 Spironolactone [Aldactone*] 25 mg PO DAILY #30 tab 07/10/21 lisinopriL [Prinivil*] 5 mg PO DAILY #30 tab 07/10/21 New Medications: Spironolactone [Aldactone*] 25 mg PO DAILY #30 tab Aspirin [Aspirin EC 81 MG] 81 mg PO DAILY #90 tablet. Furosemide [Lasix*] 40 mg PO DAILY #30 tab Atorvastatin Calcium [Lipitor*] 10 mg PO BEDTIME #30 tab Metoprolol Tartrate [Lopressor*] 50 mg PO BID #60 tab lisinopriL [Prinivil*] 5 mg PO DAILY #30 tab Physician Discharge Instructions: Patient presented with chest pain and shortness of breath. Patient found to have new acute on chronic systolic CHF with ejection fraction of 32%. Patient was seen and evaluated further. Patient required IV diuretic therapy. Patient also started on medication for blood pressure. Medications have been adjusted. Patient was seen and evaluated by cardiology. Cardiology recommended cardiac stress test to further evaluate. No stress-induced ischemia noted. Cardiology did recommend a LifeVest for the patient due to his new CHF. At discharge the patient will continue with LifeVest. Education provided. At discharge patient will continue with a 1500 cc/day fluid restriction and low-salt diet. New medications include metoprolol, lisinopril, Lasix and Aldactone. At discharge the patient will continue with metoprolol 50 mg 1 pill twice daily, lisinopril 5 mg daily, Lasix 40 mg daily, Aldactone 25 mg daily, and aspirin 81 mg daily. Recommend follow-up with cardiology in 1 to 2 weeks to follow-up this hospitalization. Patient will likely require heart catheterization in the future to further evaluate. This can be done with the help of cardiology. Recommend to recheck labBMP to monitor his progress. Education on CHF provided. Recommend follow-up with his PCP within 1 week to follow-up his hospitalization. Patient will see cardiology on Thursday at 3 PM. Patient with hypertension. His blood pressure was uncontrolled upon admission. Medications were provided and adjusted. Blood pressure much improved with current regimen. Medication have been changed at discharge. He will no longer take Carduare, Hydralazine, or Norvasc. At discharge patient will continue with metoprolol 50 mg 1 pill twice daily and lisinopril 5 mg daily. Recommend to maintain blood pressure less than 130/80. If blood pressure remains above 140/90 further adjustment in medication may be required. This can be done with the help of his PCP or cardiology. Patient with hyperlipidemia. LDL 103. Medication was initiated. At discharge patient will continue with Lipitor 10 mg daily. Recommend to recheck labCMP and fasting lipid panel in 2 to 4 weeks to monitor his progress. Further ad justment can be done by his PCP or cardiology. Patient with diabetes mellitus type 2. Patient takes Glucophage. Hemoglobin A1c 5.6. Recommend to monitor his blood sugars at least twice daily. Recommend to maintain blood sugar less than 140 fasting and less than 200 after meals. Patient may continue with Glucophage 500 mg daily. Recommend to recheck hemoglobin A1c every 3 months to monitor his progress. Further adjustment in medication can be done by his PCP. Patient likely with underlying obstructive sleep apnea. Recommend outpatient sleep study to further evaluate. If abnormal patient may require CPAP machine. Education on sleep apnea provided. Patient with pacemaker. As mentioned above patient will follow up with cardiology next week. He has an appointment already made for Thursday at 3 PM. Patient may require further evaluation by electrophysiology as the patient will have a LifeVest at discharge. Cardiology may plan for pacemaker with AICD. Diet: ADA Activity: Ad shara Followup: NONE,NONE [Primary Care Provider] - Time spent managing pt's care (in minutes): 55
[2021-07-09] MEDS: TRAMADOL HCL 50 MG TAB PO PRN ×3 (06:33→20:23)
[2021-07-09 06:37] LABS: Absolute Lymphocytes (CBC) 1.6 K/uL (0.7-4.9); Basophils % 0.4 % (0-1.3); Lymphocytes % 42.8 % (15.3-44.8); MPV 9.1 fL (7.6-11.3); RBC Red Blood Cell Count 4.92 M/uL (4.33-5.43)
[2021-07-09 06:43] LABS: Urine Appearance CLOUDY (Clear); Urine Bilirubin NEGATIVE (Negative); Urine Blood NEGATIVE (Negative); Urine Color DK YELLOW (Yellow); Urine Glucose NEGATIVE (Negative); Urine Protein 2+ (Negative); Urine pH 5.5 (5.0-7.0)
[2021-07-09 06:48] LABS: Bilirubin Total 0.9 mg/dL (0.2-1.0); Magnesium 2.1 mg/dL (1.8-2.4); Potassium 3.6 mmol/L (3.5-5.1); Thyroid Stimulating Hormone 1.8 uIU/mL (0.360-3.740); Troponin I 0.02 ng/mL (0.0-0.045)
[2021-07-09 06:53] LABS: Urine Microscopic Reflex ORDER UMIC
[2021-07-09 07:02] LABS: Urine Bacteria <20 /HPF (NONE SEEN); Urine Mucus 3+ /HPF (NONE SEEN); Urine RBC <5 /HPF (NONE SEEN)
[2021-07-09] MEDS: INSULIN -REGULAR HUMAN 50 UNIT/0.5 ML ML SQ SCH ×4 (07:30→20:26)
[2021-07-09] MEDS ORDERED: INFLUENZA VACCINE (for 6+ mo) 0.5 ML DOSE IMVAC ONE (08:00)
[2021-07-09] MEDS ORDERED: REGADENOSON 0.4 MG/5 ML SYR IV ONE (09:10)
[2021-07-09] MEDS: MORPHINE 2 MG/ML SYR IM ONE (09:43)
[2021-07-09] MEDS: FUROSEMIDE 40 MG/4 ML VIAL IV SCH ×2 (10:00→18:04)
[2021-07-09] MEDS ORDERED: MORPHINE 2 MG/ML SYR IV ONE (10:00)
--- NOTE | 2021-07-09 13:05 | EKG ---
Test Date: 2021-07-08 Test Time: 16:52:39 Sales Recruitment Specialist: MEASUREMENT RESULTS: Intervals: Rate: 95 WY: 150 QRSD: 162 QT: 466 QTc: 585 [place]: P: 78 WY: 150 QRS: -41 T: 80 INTERPRETIVE STATEMENTS: Poor data quality, interpretation may be adversely affected Electronic ventricular pacemaker Compared to ECG 04/12/2021 18:45:09 Atrial-sensed ventricular-paced complex(es) or rhythm no longer present Electronically Signed On 07-09-21 13:02:35 MAINTENANCE MECHANIC TELEPHONE by Silviano Grimes
[2021-07-09] MEDS ORDERED: METOPROLOL TARTRATE 5 MG/5 ML INJ IV STA (13:26)
[2021-07-09] MEDS: AMLODIPINE 10 MG TAB PO SCH (13:53)
[2021-07-09] MEDS: ASPIRIN EC 81 MG TAB PO SCH (13:53)
[2021-07-09] MEDS: ENOXAPARIN 40 MG/0.4 ML SQ SCH (13:54)
--- NOTE | 2021-07-09 14:05 | ECHO ---
HEIGHT: 6 ft 2 in WEIGHT: 301 lb 0 oz DATE OF STUDY: 07/09/[address]: Shay Salmon DO 2-DIMENSIONAL: YES M.MODE: YES DOPPLER: YES COLOR FLOW: YES TDS: NO PORTABLE: NO DEFINITY: NO BUBBLE STUDY: NO DIAGNOSIS: CHEST PAIN CARDIAC HISTORY: CATHERIZATION: YES SURGERY: NO PROSTHETIC VALVE: NO PACEMAKER: YES MEASUREMENTS (cm) DIASTOLIC (NORMALS) SYSTOLIC (NORMALS) IVSd 1.4 (0.6-1.2) LA Diam 2.9 (1.9-4.0) LVEF 32% LVIDd 6.2 (3.5-5.7) LVIDs 5.2 (2.0-3.5) %FS 16% LVPWd 1.4 (0.6-1.2) Ao Diam 3.3 (2.0-3.7) 2 DIMENSIONAL ASSESSMENT: RIGHT ATRIUM: NORMAL LEFT ATRIUM: DILATED RIGHT VENTRICLE: NORMAL LEFT VENTRICLE: DILATED TRICUSPID VALVE: NORMAL MITRAL VALVE: NORMAL PULMONIC VALVE: NORMAL AORTIC VALVE: NORMAL PERICARDIAL EFFUSION: NONE AORTIC ROOT: NORMAL LEFT VENTRICULAR WALL MOTION: SEVERE GLOBAL HYPOKINESIS. DOPPLER/COLOR FLOW: MILD TRICUSPID REGURGITATION. COMMENTS: MILD TRICUSPID REGURGITATION. DILATED LEFT ATRIUM AND LEFT VENTRICLE WITH SEVERE GLOBAL HYPOKINESIS. LEFT VENTRICULAR EJECTION FRACTION 35%. TECHNOLOGIST: Andre VILLATORO
--- NOTE | 2021-07-09 14:32 | RAD REPORT ---
EXAM DESCRIPTION: NM - Rest Stress Cardiac Imaging - 07/09/2021 2:13 pm CLINICAL HISTORY: Chest pain. COMPARISON: 2018 TECHNIQUE: The patient was administered 10. mCi of Tc 99m Sestamibi prior to resting SPECT imaging o f the heart. The patient was then administered 30. MCi of Tc 99m Sestamibi following exercise or pha rmacologic stress. Multiplanar SPECT images were reviewed. FINDINGS: Moderate diminished radiotracer activity involves the inferior left ventricular myocardium on rest and stress sequences Small to moderate diminished radiotracer activity involves the lateral left ventricular myocardium on rest and stress sequences The left ventricular ejection fraction equals 15% IMPRESSION: Moderate fixed perfusion defect involving the inferior left ventricular myocardium consi stent with infarct Small to moderate fixed perfusion defect involving the lateral left ventricular myocardium consistent with infarct No evidence of stress-induced ischemia
--- NOTE | 2021-07-09 15:51 | P.PN ---
Subjective Date of Service: 07/09/21 Primary Care Provider: [facility] Chief Complaint: Chest pain Subjective: Improving (Blood pressure still elevated. Chest pain improved.) Physical Examination - Vital Signs Temperature: 97.4 F Blood Pressure: 143/90 Pulse: 80 Respirations: 20 Pulse Ox (%): 96 - Studies Laboratory Data (last 24 hrs) 07/09/21 05:41: Sodium 143, Potassium 3.6, BUN 13, Creatinine 1.27, Glucose 91, Magnesium 2.1, Total Bilirubin 0.9, AST 21, ALT 19, Alkaline Phosphatase 54, Troponin I 0.02, Triglycerides 96, Cholesterol 168, HDL Cholesterol 46, Cholesterol/HDL Ratio 3.65 07/09/21 05:41: WBC 3.80 L D, Hgb 12.7 L, Hct 40.0, Plt Count 194 07/08/21 22:27: Troponin I 0.03 07/08/21 17:00: PT 12.2, INR 1.06 07/08/21 17:00: WBC 5.40, Hgb 14.1, Hct 44.2, Plt Count 228 07/08/21 17:00: Sodium 141, Potassium 3.4 L, BUN 12, Creatinine 1.22, Glucose 100, Magnesium 1.9, Total Bilirubin 0.9, AST 22, ALT 21, Alkaline Phosphatase 64 Assessment & Plan Discharge Plan: Home Plan to discharge in: 24 Hours Physician Review Additional Text: COVID: Negative CXR: COMPARISON: Chest Single View dated 04/12/2021; Chest Single View dated 03/11/2021; Chest Single View dated 11/16/2018; Chest Single View dated 02/18/2018; Stone Protocol dated 10/20/2020 FINDINGS: Lines: None. Lungs: No evidence of edema or pneumonia. The left lung base is not well visualized which is a chronic finding. Pleural: No significant pleural effusions or pneumothorax. Cardiac: Cardiomegaly. Pacemaker/ICD. Bones: No acute fractures. IMPRESSION: Opacities at the left lung base favored to be due to underpenetration. This finding has been present on prior exams. No definite acute process identified. Cardiac stress test: COMPARISON: 2019 TECHNIQUE: The patient was administered 10. mCi of Tc 99m Sestamibi prior to resting SPECT imaging of the heart. The patient was then administered 30. MCi of Tc 99m Sestamibi following exercise or pharmacologic stress. Multiplanar SPECT images were reviewed. FINDINGS: Moderate diminished radiotracer activity involves the inferior left ventricular myocardium on rest and stress sequences Small to moderate diminished radiotracer activity involves the lateral left ventricular myocardium on rest and stress sequences The left ventricular ejection fraction equals 15% IMPRESSION: Moderate fixed perfusion defect involving the inferior left ventri cular myocardium consistent with infarct Small to moderate fixed perfusion defect involving the lateral left ventricular myocardium consistent with infarct No evidence of stress-induced ischemia Echocardiogram: CARDIAC HISTORY: CATHERIZATION: YES SURGERY: NO PROSTHETIC VALVE: NO PACEMAKER: YES MEASUREMENTS (cm) DIASTOLIC (NORMALS) SYSTOLIC (NORMALS) IVSd 1.4 (0.6-1.2) LA Diam 2.9 (1.9-4.0) LVEF 32% LVIDd 6.2 (3.5-5.7) LVIDs 5.2 (2.0-3.5) %FS 16% LVPWd 1.4 (0.6-1.2) Ao Diam 3.3 (2.0-3.7) 2 DIMENSIONAL ASSESSMENT: RIGHT ATRIUM: NORMAL LEFT ATRIUM: DILATED RIGHT VENTRICLE: NORMAL LEFT VENTRICLE: DILATED TRICUSPID VALVE: NORMAL MITRAL VALVE: NORMAL PULMONIC VALVE: NORMAL AORTIC VALVE: NORMAL PERICARDIAL EFFUSION: NONE AORTIC ROOT: NORMAL LEFT VENTRICULAR WALL MOTION: SEVERE GLOBAL HYPOKINESIS. DOPPLER/COLOR FLOW: MILD TRICUSPID REGURGITATION. COMMENTS: MILD TRICUSPID REGURGITATION. DILATED LEFT ATRIUM AND LEFT VENTRICLE WITH SEVERE GLOBAL HYPOKINESIS. LEFT VENTRICULAR EJECTION FRACTION 35%. Physical Exam: GENERAL: The patient is a well-developed, well-nourished, in no apparent distress. Alert and oriented x3. VITAL SIGNS: Reviewed HEENT: Head is normocephalic and atraumatic. Extraocular muscles are intact. Pupils are equal, round, and reactive to light and accommodation. Nares appeared normal. Mouth is well hydrated and without lesions. Mucous membranes are moist. NECK: Supple. No carotid bruits. No lymphadenopathy or thyromegaly. LUNGS: Clear to auscultation. No crackles or wheezes are heard. HEART: Regular rate and rhythm, no appreciable gallops, rubs, murmurs or extra heart sounds ABDOMEN: Soft, nontender, and nondistended. Positive bowel sounds. No hepatosplenomegaly was noted. EXTREMITIES: Without any cyanosis, clubbing, rash, lesions or peripheral edema. NEUROLOGIC: The patient is oriented to person, place and time. Strength and sensation are grossly intact. Face is symmetric. SKIN: Normal color, turgor and temperature. No ulcerations or rashes noted. Impression: Chest pain and shortness of breath secondary to acute on chronic systolic CHF with ejection fraction 32% Hypertension uncontrolled Hyperlipidemia Diabetes mellitus type 2 Hypokalemia Plan: Chest pain and shortness of breath secondary to acute on chronic systolic CHF with ejection fraction 32%: Stress test showed no stress-induced ischemia. Echocardiogram shows ejection fraction 32%. This was discussed in detail with fahad ardiology. Cardiology recommends better control of blood pressure. We will continue with beta-brii, Norvasc. We will add LANA inhibitor. Continue aspirin. Continue with statin medication. Continue Lasix as well. We will teach on 1500 cc/day fluid restriction. Continue to monitor closely. Will monitor for at least 1 more day. Likely discharge tomorrow. Hypertension uncontrolled: Need to obtain and review home medication. Continue with metoprolol, Norvasc and lisinopril for now Hyperlipidemia: Continue statin medication. LDL 103 Diabetes mellitus type 2: Hemoglobin A1c 5.6. We will teach on hyperglycemia. Recheck hemoglobin A1c in 6 months Hypokalemia: We will monitor and replace. Code Status: Full Code DVT prophylaxis: Lovenox Advanced Care Planning-30 minutes: Home at discharge Time Spent Managing Pts Care (In Minutes): 55
[2021-07-09] MEDS: HYDROCODONE/APAP 7.5/325 MG TAB PO PRN (15:55)
[2021-07-09] MEDS: METOPROLOL TAR 50 MG TAB PO SCH (20:24)
[2021-07-09] MEDS: lisinopriL 5 MG TAB PO SCH (20:25)
[2021-07-10] MEDS: HYDROCODONE/APAP 7.5/325 MG TAB PO PRN ×3 (02:17→18:46)
[2021-07-10 05:54] LABS: Absolute Lymphocytes (CBC) 2.3 K/uL (0.7-4.9); Basophils % 0.4 % (0-1.3); Hematocrit 42.2 % (39.6-49.0); Lymphocytes % 51.7 % (15.3-44.8); MPV 8.8 fL (7.6-11.3); RBC Red Blood Cell Count 5.16 M/uL (4.33-5.43)
[2021-07-10 06:03] LABS: Bilirubin Total 0.7 mg/dL (0.2-1.0); Magnesium 2.2 mg/dL (1.8-2.4); Potassium 3.6 mmol/L (3.5-5.1); Protein, Total 7.1 g/dL (6.4-8.2)
[2021-07-10] MEDS: INSULIN -REGULAR HUMAN 50 UNIT/0.5 ML ML SQ SCH ×4 (07:30→21:00)
[2021-07-10 07:33] LABS: Blood Morphology Comment NOTED (NOT SEEN); Macrocytosis SLIGHT; Platelet Estimate ADEQ
[2021-07-10] MEDS: ENOXAPARIN 40 MG/0.4 ML SQ SCH (09:19)
[2021-07-10] MEDS: ASPIRIN EC 81 MG TAB PO SCH (09:19)
[2021-07-10] MEDS: FUROSEMIDE 40 MG/4 ML VIAL IV SCH (09:20)
[2021-07-10] MEDS: lisinopriL 5 MG TAB PO SCH (09:20)
[2021-07-10] MEDS: AMLODIPINE 10 MG TAB PO SCH (09:20)
[2021-07-10] MEDS: METOPROLOL TAR 50 MG TAB PO SCH ×3 (09:20→21:38)
[2021-07-10] MEDS ORDERED: PNEUMOCOCCAL VACCINE 0.5 ML IMVAC ONE (12:00)
[2021-07-10] MEDS: TRAMADOL HCL 50 MG TAB PO PRN ×2 (13:25→21:44)
--- NOTE | 2021-07-10 15:46 | P.PN ---
Subjective Date of Service: 07/10/21 Primary Care Provider: ELIANA STONE Chief Complaint: Chest pain Subjective: Improving, Doing well Physical Examination - Vital Signs Temperature: 97.0 F Blood Pressure: 115/79 Pulse: 68 Respirations: 18 Pulse Ox (%): 100 Assessment & Plan Discharge Plan: Home Plan to discharge in: 24 Hours Physician Review Additional Text: COVID: Negative CXR: COMPARISON: Chest Single View dated 04/12/2021; Chest Single View dated 03/11/2021; Chest Single View dated 11/16/2018; Chest Single View dated 02/18/2018; Stone Protocol dated 10/20/2020 FINDINGS: Lines: None. Lungs: No evidence of edema or pneumonia. The left lung base is not well visualized which is a chronic finding. Pleural: No significant pleural effusions or pneumothorax. Cardiac: Cardiomegaly. Pacemaker/ICD. Bones: No acute fractures. IMPRESSION: Opacities at the left lung base favored to be due to underpenetration. This finding has been present on prior exams. No definite acute process identified. Cardiac stress test: COMPARISON: 2018 TECHNIQUE: The patient was administered 10. mCi of Tc 99m Sestamibi prior to resting SPECT imaging of the heart. The patient was then administered 30. MCi of Tc 99m Sestamibi following exercise or pharmacologic stress. Multiplanar SPECT images were reviewed. FINDINGS: Moderate diminished radiotracer activity involves the inferior left ventricular myocardium on rest and stress sequences Small to moderate diminished radiotracer activity involves the lateral left ventricular myocardium on rest and stress sequences The left ventricular ejection fraction equals 15% IMPRESSION: Moderate fixed perfusion defect involving the inferior left ventricular myocardium consistent with infarct Small to moderate fixed perfusion defect involving the lateral left ventricular myocardium consistent with infarct No evidence of stress-induced ischemia Echocardiogram: CARDIAC HISTORY: CATHERIZATION: YES SURGERY: NO PROSTHETIC VALVE: NO PACEMAKER: YES MEASUREMENTS (cm) DIASTOLIC (NORMALS) SYSTOLIC (NORMALS) IVSd 1.4 (0.6-1.2) LA Diam 2.9 (1.9-4.0) LVEF 32% LVIDd 6.2 (3.5-5.7) LVIDs 5.2 (2.0-3.5) %FS 16% LVPWd 1.4 (0.6-1.2) Ao Diam 3.3 (2.0-3.7) 2 DIMENSIONAL ASSESSMENT: RIGHT ATRIUM: NORMAL LEFT ATRIUM: DILATED RIGHT VENTRICLE: NORMAL LEFT VENTRICLE: DILATED TRICUSPID VALVE: NORMAL MITRAL VALVE: NORMAL PULMONIC VALVE: NORMAL AORTIC VALVE: NORMAL PERICARDIAL EFFUSION: NONE AORTIC ROOT: NORMAL LEFT VENTRICULAR WALL MOTION: SEVERE GLOBAL HYPOKINESIS. DOPPLER/COLOR FLOW: MILD TRICUSPID REGURGITATION. COMMENTS: MILD TRICUSPID REGURGITATION. DILATED LEFT ATRIUM AND LEFT VENTRICLE WITH SEVERE GLOBAL HYPOKINESIS. LEFT VENTRICULAR EJECTION FRACTION 35%. Physical Exam: GENERAL: The patient is a well-developed, well-nourished, in no apparent distress. Alert and oriented x3. VITAL SIGNS: Reviewed HEENT: Neck supple LUNGS: Clear to auscultation. No crackles or wheezes are heard. HEART: Regular rate and rhythm, no appreciable gallops, rubs, murmurs or extra heart sounds ABDOMEN: Soft, nontender, and nondistended. Positive bowel sounds. No hepatosplenomegaly was noted. EXTREMITIES: Without any cyanosis, clubbing, rash, lesions or peripheral edema. NEUROLOGIC: The patient is oriented to person, place and time. Strength and sensation are grossly intact. Face is symmetric. SKIN: Edema to the lower extremity improved Impression: Chest pain and shortness of breath secondary to now acute on chronic systolic CHF with ejection fraction 32% Hypertension uncontrolled Hyperlipidemia Diabetes mellitus type 2 Hypokalemia Suspect underlying obstructive sleep apnea Plan: Chest pain and shortness of breath secondary to new acute on chronic systolic CHF with ejection fraction 32%: Stress test showed no stress-induced ischemia. Echocardiogram shows ejection fraction 32%. Case discussed with cardiology. Patient will likely require heart catheterization as an outpatient. Cardiology arranging for LifeVest for the patient. Will adjust medication today. Patient will need to continue with aspirin, Lipitor, metoprolol, and lisinopril. Additional medications include Aldactone and Lasix. For now patient on aspirin 80 mg daily, Lipitor 10 mg daily, metoprolol 50 mg 1 pill twice daily, lisinopril 5 mg daily, Aldactone 25 mg daily, and Lasix 40 mg daily. Will change medication to oral. Continue to monitor closely. Possible discharge later today if LifeVest can be obtained. If not we will plan for discharge tomorrow. Hypertension uncontrolled: Blood pressure improved. Medications adjusted. D iscontinue Norvasc. Continue metoprolol 50 mg 1 pill twice daily, lisinopril 5 mg daily. Hyperlipidemia: Continue statin medicationLipitor 10 mg daily. LDL 103 Diabetes mellitus type 2: Hemoglobin A1c 5.6. We will teach on hyperglycemia. May continue Glucophage at discharge. Hypokalemia: We will monitor and replace. Suspect underlying obstructive sleep apnea: Patient will require sleep study as an outpatient. Code Status: Full Code DVT prophylaxis: Lovenox Advanced Care Planning-30 minutes: Home at discharge Time Spent Managing Pts Care (In Minutes): 55
[2021-07-10] MEDS ORDERED: ATORVASTATIN 10 MG TAB PO SCH (21:00)
[2021-07-11 00:45] VITALS: O2SAT 94
[2021-07-11] MEDS: HYDROCODONE/APAP 7.5/325 MG TAB PO PRN ×2 (04:17→09:59)
[2021-07-11] MEDS: INSULIN -REGULAR HUMAN 50 UNIT/0.5 ML ML SQ SCH (07:30)
[2021-07-11] MEDS ORDERED: SPIRONOLACTONE 25 MG TABLET PO SCH (09:00)
[2021-07-11] MEDS ORDERED: FUROSEMIDE 40 MG TABLET PO SCH (09:00)
[2021-07-11] MEDS ORDERED: lisinopriL 5 MG TAB PO SCH (09:00)
[2021-07-11] MEDS: ENOXAPARIN 40 MG/0.4 ML SQ SCH (09:48)
[2021-07-11] MEDS: METOPROLOL TAR 50 MG TAB PO SCH (09:51)
[2021-07-11] MEDS: ASPIRIN EC 81 MG TAB PO SCH (09:53)
[2021-07-11] MEDS ORDERED: PNEUMOCOCCAL VACCINE 0.5 ML IMVAC ONE (12:00)
[2021-07-11] MEDS ORDERED: INFLUENZA VACCINE (for 6+ mo) 0.5 ML DOSE IMVAC ONE (12:00)
--- NOTE | 2021-07-11 12:34 | TREADPHA ---
DX: CHEST PAIN Date of Study: 07/09/2021 Ht: 6' 2 " Wt: 301 lb 0 oz Consulting Physician: RAND MEDICATIONS: ASPIRIN, LOVENOX, LASIX, NOVOLIN- R, ULTRAM HISTORY: 55 YEAR OLD MALE WITH COMPLAINTS CHEST PAIN. HISTORY OF DIABETES MELLITUS, HYPERTENSION, HIGH CHOLESTROL, NON SMOKER AND NON DRINKER. PHYSICIAL EXAMINATION: RESTING B.P.: 133/100 RESTING H.R.: 87 RESTING EKG: SINUS RHYTHM, LEFT VENTRICULAR HYPERTROPHY PROTOCOL: LEXISCAN EXERCISE TIME: 3:30 B.P. AT PEAK STRESS: 140/96 IMPRESSION: LEXISCAN INJECTED FOLLOWED BY CARDIOLITE PER PROTOCOL. SEE NUCLEAR MEDICINE REPORT. NO SUPRAVENTRICULAR TACHYCARDIA, VENTRICULAR TACHYCARDIA, PREMATURE VENTRICULAR COMOPLEXES OR PREMATURE ATRIAL COMPLEXES. PATIENT REPORTS CHEST PAIN IN RECOVERY. CHEST PAIN RELEIVED WITH METOPROLOL 5mg IV PUSH ONCE.
[2021-07-11 13:27] VITALS: BP 112/72; TEMP 97.5
--- NOTE | 2021-07-13 20:53 | PN ---
Date of Progress Note: 07/10/2021 Subjective: Mr. Watts had came in with CHF, very low ejection fraction. Stress test showed no isch emia. He needs to have a LifeVest. He needs to go home on Coreg, lisinopril, Lasix, Aldactone. We will consider Entresto on him down the road. I will plan to probably do a heart catheterization on h im eventually, but he needs to be on LifeVest first to help with medical therapy. He can go home whe never it is okay with Dr. Salmon. I will see him in the office as soon as possible. AMINATA/RIAZ Voice ID: [id number] Report ID: [id number]
--- NOTE | 2021-07-15 10:58 | CON ---
Reason For Consultation: Admitted on 07/09/[address] Salmon with congestive heart failure and ches t pain. History Of Present Illness: Mr. Watts is a 55-year-old black male with history of diabetes, hyperte nsion, dyslipidemia, came in with chest pain, shortness of breath with minimal exertion. Has had jhonny e PND, orthopnea, pedal edema. No palpitation. No syncope. Denied any fever or chills. Has not se en a physician or followed up for his medical problems for quite sometime. Allergies: HAS NO KNOWN ALLERGIES. Review of Systems: Negative. Social History: Negative. Family History: Negative. Medications: Include Norvasc, Lipitor, carvedilol, hydralazine, lisinopril. Physical Examination: Vital Signs: Blood pressure is 172/102, sinus tach at 95, O2 saturation 98%, temperature 97.7, respi ratory rate was 17. He weighed 117 kg. HEENT: Negative. Neck: Supple with no bruit, lymphadenopathy, JVD, or thyromegaly. Chest: Revealed some rales both bases. Cardiac: Revealed a regular rhythm and rate with S3 gallops. No murmurs or rubs. Abdomen: Obese, but benign. Extremities: Revealed 1+ edema. Diagnostic Data: EKG showed a paced rhythm. Chest x-ray showed volume overload. Laboratory evaluat ion revealed a creatinine of 1.38. His hemoglobin was 13. Troponin and BNP were still pending. Impression And Plan: 1.Possible acute congestive heart failure. 2.Diabetes. 3.Hypertension. 4.Dyslipidemia. 5.Obesity. 6.Status post pacemaker. The patient is on appropriate therapy with aspirin, amlodipine, Lipitor. He is now on Lasix, Lovenox, metoprolol, spironolactone, lisinopril. We need to do an echocardiogram on him as soon as possible and we need to do a Lexiscan to rule out coronary artery disease. I will discuss the case further with Dr. Salmon. AMINATA/RIAZ Voice ID: [id number] Report ID: [id number]
== END 2021-07-11 13:34 | disposition home or self-care (01) | DRG 291 ==
LOC: ER 16:36 → ERHOLD 19:11 → 2ND 21:32 → OBSVTOIN 07-09 14:42
PROVIDERS: ADMIT Family Medicine; ATTEND Family Medicine
DX: I11.0 Hypertensive heart disease with heart failure (principal); I50.23 Acute on chronic systolic (congestive) heart failure; E11.9 Type 2 diabetes mellitus without complications; E78.5 Hyperlipidemia, unspecified; I16.0 Hypertensive urgency; E87.6 Hypokalemia; G47.33 Obstructive sleep apnea (adult) (pediatric); I25.10 Atherosclerotic heart disease of native coronary artery without angina pectoris; E66.9 Obesity, unspecified; Z68.38 Body mass index [BMI] 38.0-38.9, adult; Z95.5 Presence of coronary angioplasty implant and graft; Z95.0 Presence of cardiac pacemaker; Z79.899 Other long term (current) drug therapy; Z79.84 Long term (current) use of oral hypoglycemic drugs; Z79.82 Long term (current) use of aspirin; Z20.822 Contact with and (suspected) exposure to COVID-19
CPT/HCPCS: 36415; 71045; 78452; 80048; 80053; 80061; 80076; 81003; 81015; 82947; 83036; 83735; 83880; 84439; 84443; 84484; 85025; 85610; 93005; 93017; 93306; 96374; 99285; A9500; G0378; J1650; J1940; J2270; J2785; J3010; U0003

== ENCOUNTER 2021-07-12 11:16 | Emergency (ER) | payer OTHER ==
--- OUTSIDE RECORDS SUMMARY | 2021-07-12 11:29 | XMS REPORT | Continuity of Care Document ---
:1965 Author Organization [facility] t Address [address] [place] [address] Care Team Providers Name Role Phone Robert BOYER, A Primary Care Physician Robert BOYER, A Attending Clinician Orlin Juan Attending Clinician Unavailable Seth RN, B Attending Clinician Unavailable Dariel BOYER, Nav Attending Clinician Rosalia BOYER, S Attending Clinician Artemio RADIO STATION ENGINEER, L Attending Clinician Kathia Attending Clinician Unavailable Nasim Attending Clinician Unavailable Tyler Attending Clinician Unavailable Elisha Attending Clinician Unavailable CARRI PARKS Attending Clinician Unavailable Physician, Primary or Family Admitting Clinician UnavailOrlin Barnard Admitting Clinician Unavailable Santana BOYER Admitting Clinician Kathia Admitting Clinician Unavailable Tyler Admitting Clinician Unavailable Elisha Admitting Clinician Unavailable CARRI PARKS Admitting Clinician Unavailable Payers Payer Name Policy Type Policy Number Effective Date Expiration Date S ource Problems Condition Condition Condition Status Onset Resolution Last Treating Co mments Source Name Details Category Date Date Treatment Clinician Date CHF with CHF with Disease Active 2020-08 Unive rs unknown unknown 1-29 ity of LVEF LVEF 00:00: [place] [facility] Obesity Obesity Disease Active 2020-08 Univers (BMI (BMI 0-16 ity of 30-39.9) 30-39.9) 00:00: [place] [address] Medical Branch Acute on Acute on Disease Active 2020-08 Unive rs chronic chronic 0-03 ity of combined combined 00:00: [place] systolic systolic 00 Medica l and and Branch diastolic diastolic CHF CHF (congestiv (congestiv e heart e heart failure) failure) Morbid Morbid Disease Active Univers obesity obesity 7-24 ity of 00:00: [place] [facility] Pulmonary Pulmonary Disease Active Uni vers edema with edema with 7-23 it y of congestive congestive [place] heart heart 00 Medical failure failure Branch Chest pain Chest pain Disease Active U nivers 7-19 ity of 00:00: [place] [facility] Left-sided Left-sided Disease Active U nivers weakness weakness 5-17 ity of 00:00: [place] 00 Medical Branch Stroke, Stroke, Disease Active Univers acute, acute, 5-17 ity of embolic embolic 00:00: [place] [facility] Noncomplia Noncomplia Disease Active U nivers nce nce 5-11 ity of 00:00: [place] 00 Medical Branch Acute CVA Acute CVA Disease Active Uni vers (cerebrova (cerebrova 3-24 it y of scular scular 00:00: [place] accident) accident) 00 [facility] Branch Dyslipidem Dyslipidem Disease Active [...] Medical defibrilla defibrilla Br anch tor tor (BOOK JOGGER-D) in (BOOK JOGGER-D) in place place ICD ICD Disease Active [...] Overview: Un dino eye exam eye exam 711 Formattin ity of 00:00: g of this [place] 00 note Medical might be Branch different from the original. Added automatic ally from request for surgery [id number] Atypical Atypical Disease Active 2015-08 Unive rs chest pain chest pain 2-20 it y of 00:00: [place] 00 Medical Branch PRAVEEN on PRAVEEN on Disease Active Univers CPAP CPAP 4-14 ity of 00:00: [place] [facility] Chronic Chronic Disease Active Univers [...] cardiomyop cardiomyop 00:00: [place] athy athy [facility] Metabolic Metabolic Disease Active 2014-08 [...] it y of s s 00:00: [place] 00 Medical Branch Chronic Chronic Disease Active 2014-08 Univers dental dental 0-01 ity of pain pain 00:00: [place] 00 Medical Branch Allergies, Adverse Reactions, Alerts Allergy Allergy Status Severity Reaction(s) Onset Inactive Treating Comm ents Source Name Type Date Date Clinician No Known DA Active U [facility] Allergie 4-30 Clear s 00:00: Arriaga 00 [facility] No Known DA Active U [facility] Allergie 4-30 Clear s 00:00: Arriaga 00 [facility] No Known DA Active U [facility] Allergie 4-29 [place] s 00:00: d [address] [facility] Isosorbi Propensi Active Other - See Severe U nivers de ty to comments 04-04 hypotensi ity o f Mononitr adverse 00:00: on, [place] ate reaction 00 likely Medical s from Branch severe LVH per Dr. Zamora. No Known DA Active U [facility] Allergie 4-10 Boyce s 00:00: [address] Social History Social Habit Start Date Stop Date Quantity Comments Source Exposure to Not sure [place] of SARS-CoV-2 [place] [facility] (event) Branch History [facility] University o f Alcohol Frequency [place] M edical Branch History [facility] University o f Alcohol Std [place] [facility] Drinks Branch History [facility] o f Alcohol Binge [place] Medic al Branch Alcohol intake 2021-07-01 2021-07-01 Ex-drinker University of 00:00:00 00:00:00 (finding) [place] [facility] Alcohol Comment 2021-05-22 2021-05-22 1 cup of whiskey Uni versity of 00:00:00 00:00:00 but last dirnk [facility] jennifer in December Branch Education 2020-04-30 2020-04-30 13 University of 00:00:00 00:00:00 [place] [facility] History KSOH 2019-08-22 2019-08-22 3 University o f Financial 00:00:00 00:00:00 [place] [facility] History [facility] Food 2019-08-22 2019-08-22 1 Univers ity of Worry 00:00:00 00:00:00 [place] [facility] History [facility] Food 2019-08-22 2019-08-22 1 Univers ity of Scarcity 00:00:00 00:00:00 [place] [facility] History SDAZ 2019-08-22 2019-08-22 2 University o f Transport Med 00:00:00 00:00:00 [place] Medic al Branch History SDOH 2019-08-22 2019-08-22 2 University o f Transport Non-Med 00:00:00 00:00:00 [place] M edical [facility] Tobacco use and 2018-11-08 2018-11-08 Never used Universit y of exposure 00:00:00 00:00:00 [facility] Sex Ass[birth year] Universit y of 00:00:00 00:00:00 [facility] Smoking Status Start Date Stop Date Source Never smoker [facility] Medications Ordered Filled Start Stop Current Ordering Indication Dosage Frequency Signature Comments Components Source Medication Medication Date Date Medication? Clinician (SIG) Name Name omeprazole 2020-08 Yes 40mg Take 40 mg U nivers 40 mg 09-03 by mouth ity of capsule 13:10: daily. [address] GLIPIZIDE 5 2020-08 Yes [id number] 5mg TAKE 1 Univers mg tablet 1-29 TABLET BY ity o f 00:00: MOUTH 2 [place] 00 (TWO) Medical TIMES Branch DAILY BEFORE BREAKFAST AND DINNER. bumetanide 2020-08 Yes [id number] 3mg Take 1.5 Univers 2 mg tablet 1-23 tablets by it y of 00:00: mouth [place] 00 every Medical morning Branch and evening. hydrALAZINE 2020-08- No [id number] 125mg Take 2.5 Univers 50 mg 1-23 [...] INDICATION S: CHRONIC PAIN carvediloL 2020-08 Yes [id number] 50mg Take 2 Univers 25 mg 0-22 tablets by ity of tablet 00:00: mouth 2 [place] 00 (two) Medical times Branch daily with meals. clopidogreL 2020-08 Yes [id number] 75mg Take 1 Univers 75 mg 0-22 tablet by ity of tablet 00:00: mouth [place] 00 daily. Medical Branch atorvastati 2020-08 Yes [id number] 80mg Take 1 Univers n 80 mg 0-22 tablet by ity of tablet 00:00: mouth at [place] 00 bedtime. Medical Branch aspirin 81 Yes [id number] 81mg Take 1 U nivers mg EC 04-10 tablet by ity of tablet 00:00: mouth [place] 00 daily. Medical Branch SERTraline 202- No [id number] 50mg Take 1 Univers 50 mg 04-04 9100 tablet by ity of tablet 00:00: 05:59 mouth at [place] 00 :00 bedtime Medical for 90 Branch days. nitroglycer Yes [id number] .4mg Place 1 Univers in 0.4 mg 5-28 tablet ity of sublingual 00:00: [place] the [place] tablet 00 tongue Medical every 5 Branch (five) minutes as needed for Chest pain. Immunizations Ordered Filled Immunization Date Status Comments Kamryn e Immunization Name Name Influenza Virus 2020-09-24 Completed Universit y of Vaccine Quad .5 mL 00:00:00 [place] Medical IM 6+ MO Branch Influenza Virus 2020-05-03 Completed Universit y of Vaccine Quad .5 mL 00:00:00 [place] [facility] IM 6+ MO Branch Influenza Virus 2019-06-14 Completed Universit y of Vaccine Quad .5 mL 00:00:00 [place] [facility] IM 6+ MO Branch Influenza Virus 2018-07-07 Completed Universit y of Vaccine Quad IM 3+ 00:00:00 [facility] YRS Branch Td 2017-08-01 Completed University of 00:00:00 [facility] Influenza Virus 2016-05-22 Completed Universit y of Vaccine Quad IM 3+ 00:00:00 [facility] [place] Branch Pneumococcal 2015-08-31 Completed University o f Polysaccharide, 00:00:00 [facility] ical PPSV23 (PNEUMOVAX) Branch Influenza Virus 2015-05-25 Completed Universit y of Vaccine Quad IM 00:00:00 [place] Med ical Multi-dose 6+ MO Branch Procedures Procedure Date / Time Performed Performing Clinician Mercedez alas [id number] 2021-03-01 00:00:00 KHANG [facility] [id number] 2021-03-01 00:00:00 KHANG [facility] [id number] 2021-01-03 00:00:00 MADSA [facility] [place] [id number] 2020-12-04 00:00:00 NEETU [facility] Pedro Pablo [facility] [id number] 2020-12-04 00:00:00 NEETU [facility] Encounters Start End Encounter Admission Attending Care Care Encounter Source Date/Time Date/Time Type Type Clinicians Facility Department ID 2020-11-29 Inpatient HCACR PAOLA [id number] [facility] 15:07:00 [id number] [facility] 2020-11-29 Inpatient HCAPM PAOLA [id number] [facility] 09:29:00 [id number] [facility] 2021-07-02 2021-07-02 Telephone BERTHA Jones [id number] [facility] 00:00:00 00:00:00 Rochelle TSANG 350.1.13.10 Nagi 4.2.7.2.686 Glenn LIMA [id number] [address] 2021-02-28 2021-03-01 Inpatient EM Ahmed, HCAPM INTE.02 [id number] [facility] 16:19:00 15:10:00 [facility] [id number] [facility] 2021-02-28 2021-02-28 Outpatient Ahmed, HCACL LABO [id number] [facility] 08:44:00 08:44:00 [facility] [id number] [facility] 2021-02-27 2021-02-27 Inpatient EM Ahmed, HCAPM INTE.02 [id number] [facility] 12:18:00 12:17:00 [facility] [id number] [facility] 2021-02-27 2021-02-27 Transition Sridhar Seth [id number] 00:00:00 00:00:00 of Eusebio Jiang 350.1.13.10 Araseli 4.2.7.2.686 [id number] [facility] 2021-02-26 2021-02-26 Transition Sridhar Seth [id number] 00:00:00 00:00:00 of Care Heavenly Jiang 350.1.13.10 [place] 4.2.7.2.686 [id number] 2021-02-25 2021-02-25 Reftrini Vieira, [facility] 1.2.840.114 [id number] 00:00:00 00:00:00 Ayush Baton 350.1.13.10 [place] 4.2.7.2.686 Professio [id number] [facility] 092 [facility] 2021-02-22 2021-02-24 Emergency Rosalia, [facility] [id number] 20:27:00 15:41:00 Doris Vázquez Lenore 350.1.13.10 [place] 4.2.7.2.686 [place] [id number] 2021-02-13 2021-02-13 Patient Artemio, [facility] [id number] 00:00:00 00:00:00 Outreach Nikole Saba [place] 350.1.13.10 [place] 4.2.7.2.686 Professio [id number] [facility] 231 [facility] 2021-02-04 2021-02-06 Inpatient EM Akalejandrina, HCACL INTE.02 [id number] [facility] 20:15:00 16:26:00 Precious Holguin [facility] 2021-02-04 2021-02-04 Emergency EM Rouse, HCAPM PAOLA [id number] [facility] 12:54:00 19:20:00 [facility] 2021-01-03 2021-01-07 Inpatient EM Tyler, HCAPM INTE.02 [id number] [facility] 15:04:00 14:00:00 [facility] [id number] Anna an [facility] 2021-01-03 2021-01-03 Outpatient Tyler, HCACL LABO [id number] [facility] 21:53:00 21:53:00 [facility] [id number] [facility] 2020-11-30 2020-12-05 Inpatient EM Elisha, HCACR TELE [id number] [facility] 16:20:00 11:58:00 Benoit [id number] Hector an [facility] 2020-05-29 2020-06-02 Inpatient JOSÉ MIGUEL NERI [facility] 7508 05:06:00 14:30:00 [facility] Results Test Description Test Time Test Comments Results Result Comments Source GLUCOSE BEDSIDE TESTING 2021-03-01 11:27:00 Test Item Value Reference Range Interpretation Comme nts GLUCOSE BEDSIDE TESTING (test code = GLUBED) 109 mg/dL 70-110 N BASIC METABOLIC [id number] 08:09:00 Test Item Value Reference Range Interpretation [...] CA) 9.5 MG/DL 8.5-10.1 N GLUCOSE BEDSIDE [id number] 07:15:00 Test Item Value Reference Range Interpretation Comments GLUCOSE BEDSIDE TESTING (test code 102 mg/dL 70-110 N = GLUBED) GLUCOSE BEDSIDE [id number] 23:04:00 Test Item Value Reference Range Interpretation Comments GLUCOSE BEDSIDE TESTING (test code 127 mg/dL 70-110 H = GLUBED) GLUCOSE BEDSIDE [id number] 20:03:00 Test Item Value Reference Range Interpretation Comments GLUCOSE BEDSIDE TESTING (test code 149 mg/dL 70-110 H = GLUBED) GLUCOSE BEDSIDE [id number] 16:55:00 Test Item Value Reference Range Interpretation Comments GLUCOSE BEDSIDE TESTING (test code 110 mg/dL 70-110 N = GLUBED) GLUCOSE BEDSIDE [id number] 11:23:00 Test Item Value Reference Range Interpretation Comments GLUCOSE BEDSIDE TESTING (test code 173 mg/dL 70-110 H = GLUBED) GLUCOSE BEDSIDE [id number] 08:33:00 Test Item Value Reference Range Interpretation Comments GLUCOSE BEDSIDE TESTING (test code 107 mg/dL 70-110 N = GLUBED) DRUGS OF ABUSE SCREEN [id number] 06:11:00 Test Item Value Reference Range Interpretation [...] to interpret this result as normal/abnormal . [id number] 20:43:00 Test Item Value Reference Range Interpretation [...] Completed by Nursing: NO- CTA CHEST FOR [id number] 18:35:00 [facility] 1965 Sex: M Name: WILMER PARADA [facility] : 1965 Age/S: 55 / M [id number] Unit #: [id number] Loc: [place] [address] Phys: Isac Rouse DO Acct: [id number] Dis Date: Status: REG ER PHONE #: [phone] Exam Date: 02/27/2021 1800 FAX #: Reason: chest pain, elevated ddimer EXAMS: CPT: [id number] [place] [address] Location of dictation: B2 CTA of the [...] 1 Signed Report (CONTINUED) Name: WILMER PARADA [facility] Con[place] : 1965 Age/S: 55 / M [id number] Unit #: [id number] Loc: [place] [address] Phys: Isac Rouse Acct: [id number] Dis Date: Status: REG ER PHONE #: [phone] Exam Date: 02/27/2021 1800 FAX #: Reason: chest pain, elevated ddimer EXAMS: CPT: [id number] [place] [address] <Continued> at 1835 Reported and signed by: April Marsh M.D. CC: Isac Rouse DO Technologist:Caitlin Slaughter, RT(R)(CT)(MRI) CTDI: DLP: Trnscb Date/Time: 02/27/2021 (1835) Zoran.PXC Orig Print D/T: S: 02/27/2021 (3487) PAGE 2 Signed ReportCOVID 19 INHOUSE AG 2021-02-27 14:54:00 Test Item Value Reference Range Interpretation Comments COVID 19 INHOUSE AG NEGATIVE Negative Per manu facturer, (test code = negative result s should [id number]) be treated aspr esumptive and, if inconsi [...] nicalsigns and symptoms co nsistent with COVID-19. [id number] 13:38:00 Test Item Value Reference Range Interpretation [...] APPROPRIATECLIN ICAL EUALUATIONS. - XR CHEST 1 [id number] 13:35:00 [facility] : 1965 Sex: M Name: WILMER PARADA [place] : 1965 Age/S: 55 / M [id number] Unit #: [id number] Loc: [place] [address] Phys: Isac Rouse DO Acct: [id number] Dis Date: Status: REG ER PHONE #: [phone] Exam Date: 02/27/2021 1320 FAX #: Reason: chest pain EXAMS: CPT: [id number] XR CHEST 1 V 52567 Fluoro Time: DAP (Gy m2): Air Kerma [...] PAGE 1 Signed Report Name: WILMER PARADA [place] : 1965 Age/S: 55/ M [address] Unit #: [id number] Loc: [place] [address] Phys: Isac Rouse Acct: [id number] Dis Date: Status: REG ER PHONE #: [phone] Exam Date: 02/27/2021 1320 FAX #: Reason: chest pain EXAMS: CPT: [id number] XR CHEST 1 V 15365 Fluoro Time:DAP (Gy m2): Air Kerma (mGy): <Continued> Technologist: Bandar Tirado RT(R)(CT) Trnscb Date/Time: 02/27/2021 (8537) VikramPXTess Orig Print D/T: S: 02/27/2021 (5995) PAGE 2 Signed ReportBASIC METABOLIC [id number] 13:29:00 Test Item Value Reference Range Interpretation [...] CK) Completed by Nursing: NONT PRO-BRAIN NATRIURETIC [id number] 13:29:00 Test Item Value Reference Range Interpretation Comments NT PRO-BRAIN NATRIURETIC PEPTI 1727 PG/ML 0-100 H (test code = PROBNP) Completed by Nursing: [id number] 13:29:00 Test Item Value Reference Range Interpretation [...] yby method. 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 [id number] 11:32:00 Test Item Value Reference Range Interpretation Comments GLUBED (test code = 110 MG/DL 70-110 N Performe d by certified GLUBED) blister pack operator at [facility] [id number] 08:13:00 Test Item Value Reference Range Interpretation Comments GLUBED (test code = 101 MG/DL 70-110 N Performe d by certified GLUBED) blister pack operator at [facility] [id number] 07:50:00 Test Item Value Reference Range Interpretation Comments HGBA1C% (test code = HGBA1C%) 5.9 %A1C 4.8-6.0 N BASIC METABOLIC [id number] 07:33:00 Test Item Value Reference Range Interpretation [...] mg/dL 8.0-10.5 N CA) TSH REFLEX TO [id number] 07:33:00 Test Item Value Reference Range Interpretation Comments TSH REFLEX TO FT4 (test code = 0.50 IU/mL 0.42-5.47 N TSHREFLEX) BASIC METABOLIC [id number] 07:28:00 Test Item Value Reference Range Interpretation [...] mg/dL 8.0-10.5 N CA) TSH REFLEX TO [id number] 07:28:00 Test Item Value Reference Range Interpretation Comments TSH REFLEX TO FT4 (test code = IU/mL 0.42-5.47 TSHREFLEX) CBC W/AUTO [id number] 07:23:00 Test Item Value Reference Range Interpretation [...] DIFF REQUIRED (test code NO = MDIFF) [id number] 20:49:00 Test Item Value Reference Range Interpretation Comments GLUBED (test code = 129 MG/DL 70-110 H Performe d by certified GLUBED) blister pack operator at [facility] COMPREHENSIVE METABOLIC [id number] 04:33:00 Test Item Value Reference Range Interpretation [...] 0-100 H <100 (test code = LDL) [id number] -129 NEAR OPTIMAL/ABOVE [id number] 89 HIGH>XZ=540 VE RY HIGH*Guidelines provided by the [facility] terol [facility] Adult Treatment Panel III CBC W/AUTO [id number] 04:22:00 Test Item Value Reference Range Interpretation [...] (test code NO = MDIFF) CBC W/AUTO [id number] 04:21:00 Test Item Value Reference Range Interpretation [...] MANUAL DIFF REQUIRED (test code = MDIFF) [id number] 00:46:00 Test Item Value Reference Range Interpretation [...] results may suzy y by method. LIPOPROTEIN [id number] 22:00:00 Test Item Value Reference Range Interpretation Comments LIPOPROTEIN LDL 166.8 mg/dL 0-100 H <100 OPT [id number] (test code = LDL) NEAR OPTI MAL/ABOVE [id number] 89 HIGH>BI=286 VE RY HIGH*Guidelines provided by the [facility] terol [facility] Adult Treatment Panel III [id number] 21:44:00 Test Item Value Reference Range Interpretation [...] titative results may suzy y by method. [id number] 21:34:00 Test Item Value Reference Range Interpretation Comments GLUBED (test code = 94 MG/DL 70-110 N Performe d by certified GLUBED) blister pack operator at [facility] UA RFLX MICR CULT IF [id number] 18:05:00 Test Item Value Reference Range Interpretation [...] Indication for culture: Dysuria/FrequencyDRUGS OF ABUSE SCREEN [id number] 18:05:00 Test Item Value Reference Range Interpretation [...] mated code = BARBITURN) SCcutoff message] T [employer] system which generated this result transmit breanne [...] [Automa breanne code = METHAURN) SCcutoff message] e system which generated this [...] Indication for culture: Dysuria/FrequencyDRUGS OF ABUSE SCREEN [id number] 17:28:00 Test Item Value Reference Range Interpretation Comments URN COCAINE (test code = SCcutoff See_Comment [A utomated message] COCAURN) The system [employer] generated this result transmit breanne reference range [...] See_Comment [A utomated message] OPIATURN) The system [employer] generated this result transmit breanne reference range [...] [A utomated message] = METHAURN) The system [employer] generated this result transmit breanne reference range [...] Indication for culture: Dysuria/FrequencyDRUGS OF ABUSE SCREEN [id number] 17:23:00 Test Item Value Reference Range Interpretation Comments URN COCAINE (test code = SCcutoff See_Comment [A utomated message] COCAURN) The system [employer] generated this result transmit breanne reference range [...] See_Comment [A utomated message] OPIATURN) The system [employer] generated this result transmit breanne reference range [...] [A utomated message] = METHAURN) The system [employer] generated this result transmit breanne reference range : <300 NG/ML. The reference range was not used to interpret this result as normal/abnormal . Indication for culture: Dysuria/Frequency- CTA CHEST FOR [id number] 16:11:00[facility] : 1965 Sex: M Name: WILMER PARADA : 1965 Age/S: 55 / M [address] Unit #: [id number] Loc: [place] [address] Phys: Isac Rouse DO Acct: [id number] Dis Date: Status: REG ER PHONE #: [phone] Exam Date: 02/04/2021 1548 FAX #: Reason: chest pain EXAMS: CPT: [id number] [place] [address] EXAM: - CTA CHEST FOR PE LOCATION: [...] PAGE 1 Signed Report (CONTINUED) Name: [place] : 1965 Age/S: 55 / M [address] Unit #: [id number] Loc: [place] [address] Phys: Isac Rouse DO Acct: [id number] Dis Date: Status: REG ER PHONE #: [phone] Exam Date: 02/04/2021 1540 FAX #: Reason: chest pain EXAMS: CPT: [id number] [address] <Continued> BONES: No acute osseous findings. Mild thoracic texture scoliosis. IMPRESSION: 1. No pulmonary embolism. No acute findings throughout the lungs. 2. Borderline dilated heart chambers. at 1611 Reported and signed by:Luis Rogers D.O. CC: Isac Staffordyahaira CORTEZ; Afua DARNELL Technologist:Carmen Ruggiero RT(R) CTDI: DLP: Trnscb Date/Time: 02/04/2021 (1611) [id number] Orig Print D/T: S: 02/04/2021 (5620) PAGE 2 Signed ReportD-DIMER 2021-02-04 14:30:00 Test Item Value Reference Range Interpretation Comments D-DIMER (test code = DDIMER) 979 ng/mLFEU 215-500 HH BASIC METABOLIC [id number] 14:03:00 Test Item Value Reference Range Interpretation [...] Unit/L 26-192 H CK) Completed by Nursing: [id number] 14:03:00 Test Item Value Reference Range Interpretation [...] method. Completed by Nursing: NOCOVID 19 INHOUSE [id number] 13:50:00 Test Item Value Reference Range Interpretation Comments COVID 19 INHOUSE AG NEGATIVE Negative Per manu facturer, (test code = negative result s should [id number]) be treated aspr esumptive and, if inconsi [...] nsistent with COVID-19. - XR CHEST 1 [id number] 13:44:00 [facility] : 1965 Sex: M Name: WILMER PARADA [facility] : 1965 Age/S: 55 / M [id number] Unit #: [id number] Loc: [place] [address] Phys: Isac Rouse DO Acct: [id number] Dis Date: Status: PRE ER PHONE #: [phone] Exam Date: 02/04/2021 1326 FAX #: Reason: chest pain EXAMS: CPT: [id number] XR CHEST 1 V 47431 Fluoro Time: DAP (Gy m2): Air Kerma [...] venous conge stion, without acute decompensation. at 6314 Reported and signed by: Geoff Scott M.D. CC: Isac oRuse DO; Afua DARNELL PAGE 1 Signed Report Name: WILMER PARADA [facility] : 1965 Age/S: 55 / M [address] Unit #: [id number] Loc: [place] [address] Phys: Isac Rouse DO Acct: [id number] Dis Date: Status: PRE ER PHONE #: [phone] Exam Date: 02/04/2021 1326 FAX #: Reason: chest pain EXAMS: CPT: [id number] XR CHEST 1 V 19346 Fluoro Time: DAP (Gy m2): Air Kerma (mGy): <Continued> Technologist: RT Stephanie(R) Tanner Date/Time: 02/04/2021 (1274) VikramRK5 Orig Print D/T: S: 02/04/2021 (7194) PAGE 2 Signed ReportCBC W/O [id number] 13:36:00 Test Item Value Reference Range Interpretation [...] 10.90 fL 7.0-9.6 H MPV) BASIC METABOLIC [id number] 12:58:00 Test Item Value Reference Range Interpretation [...] CA) 9.0 MG/DL 8.5-10.1 N CBC W/AUTO [id number] 12:51:00 Test Item Value Reference Range Interpretation [...] (test code = CHOL/HDL RATIOS: RISK CHOLHDL) ELIZABETH E FEMALE1/2 A VERAGE 3.43 3.27AVERAGE 4.97 4.442X AVERAGE 9.55 7.05 3X AVERAGE 23.3 9 11.04 NOTE T HAT THE REFERENCE VALUE IS RELATED TO RISK LEVELS ASRECOMMENDED B Y THE [facility] . [Automated mess age] The system which [employer] nerated this result tra nsmitted reference range : 0-. The reference range was not used to interpr et this result as normal/abnormal . HDL CHOLESTEROL 39 MG/DL 40-59 L (test code = HDL) NON-HDL CHOLESTEROL 144 mg/dL <130 H (test code = NHDL) LIPOPROTEIN LDL 119 MG/DL 0-129 N <100 XXPQRLJ975 - (test code = LDL) 129 CELI R OPTIMAL/ABOVE [id number] - 15 9 JLTDOYSEZZ150 - 189 HIGH>OR= 190 VERY HIGHNOTE THAT G UIDELINES ARE PROVIDED BY NATIONAL CHOLESTEROLEDUC ATION PROGRAM ADULT T REATMENT PANEL III LDL/HDL (test code 3.05 Ratio See_Comment N [Automat ed message] The = LDL/HDL) system which [employer] nerated this result tra nsmitted reference range : 1.48-3.22 Avg. The reference range was not used to interpr et this result as normal/abnormal . GLYCOSYLATED HEMOGLOBIN [id number] 12:24:00 Test Item Value Reference Range Interpretation Comments GLYCOSYLATED HEMOGLOBIN (HA1C) 5.8 % A1C 0.0-5.7 H (test code = GLYHGB) ESTIMATED AVERAGE GLUCOSE (test 120 MG/DLest code = EAG) GLUCOSE BEDSIDE [id number] 12:05:00 Test Item Value Reference Range Interpretation Comments GLUCOSE BEDSIDE TESTING (test code 151 mg/dL 70-110 H = GLUBED) - XR CHEST 1 [id number] 11:05:00 [facility] 1965 [facility]: [facility] 1965 Age/S: 55 / M [address] Unit #: [id number] Loc: [place] [address] Phys: Rosina Napierimmanuel GONZALEZ Acct: [id number] Dis Date: Status: ADM IN PHONE #: [phone] Exam Date: 01/07/2021 1050 FAX #: Reason: Cough EXAMS: CPT: [id number] XR CHEST 1 V 45026 Fluoro Time: DAP (Gy m2): Air Kerma [...] PAGE 1 Signed Report Name: [facility] [place] : 1965 Age/S: 55 / M [address] Unit #: [id number] Loc: [place] [address] Phys: Shea Napier Acct: [id number] Dis Date: Status: ADM IN PHONE #: [phone] Exam Date: 01/07/2021 1050 FAX #: Reason: Cough EXAMS: CPT: [id number] XR CHEST 1 V 01569 Fluoro Time: DAP (Gy m2): Air Kerma (mGy): <Continued> Technologist: Jonna Ramirez, RT(R)(MR) Trnscb Date/Time: 01/07/2021 (0996) [email or web address].[email or web address] Orig Print D/T: S: 01/07/2021 (1747) PAGE 2 Signed ReportGLUCOSE BEDSIDE [id number] 08:05:00 Test Item Value Reference Range Interpretation Comments GLUCOSE BEDSIDE TESTING (test code 105 mg/dL 70-110 N = GLUBED) GLUCOSE BEDSIDE [id number] 21:27:00 Test Item Value Reference Range Interpretation Comments GLUCOSE BEDSIDE TESTING (test code 100 mg/dL 70-110 N = GLUBED) GLUCOSE BEDSIDE [id number] 16:40:00 Test Item Value Reference Range Interpretation Comments GLUCOSE BEDSIDE TESTING (test code = 89 mg/dL 70-110 N GLUBED) GLUCOSE BEDSIDE [id number] 12:10:00 Test Item Value Reference Range Interpretation Comments GLUCOSE BEDSIDE TESTING (test code = 94 mg/dL 70-110 N GLUBED) GLUCOSE BEDSIDE [id number] 07:51:00 Test Item Value Reference Range Interpretation Comments GLUCOSE BEDSIDE TESTING (test code 102 mg/dL 70-110 N = GLUBED) GLUCOSE BEDSIDE [id number] 20:30:00 Test Item Value Reference Range Interpretation Comments GLUCOSE BEDSIDE TESTING (test code = 98 mg/dL 70-110 N GLUBED) GLUCOSE BEDSIDE [id number] 15:39:00 Test Item Value Reference Range Interpretation Comments GLUCOSE BEDSIDE TESTING (test code 102 mg/dL 70-110 N = GLUBED) - CT ANGIO [id number] 14:06:00 [facility] : 1965 Sex: M Name: WILMER PARADA [facility] : 1965 Age/S: 55 / M [address] Unit #: [id number] Loc: [place] [address] Phys: Anabela Le MD Acct: [id number] Dis Date: Status: ADM IN PHONE #: [phone] Exam Date: 01/05/2021 0049 FAX #: Reason: CVA EXAMS: CPT: [id number] CT ANGIO NECK [address] Exam: - CT ANGIO HEAD, - CT [...] PARADA : 1965 Age/S: 55 / M [address] Unit #: [id number] Loc: [place] [address] Phys: Anabela Le MD Acct: [id number] Dis Date: Status: ADM IN PHONE #: [phone] Exam Date: 01/05/2021 1332 FAX #: Reason: CVA EXAMS: CPT: [id number] CT ANGIO NECK [address] <Continued> visualized fascial planes ofthe neck are [...] 2 Signed Report (CONTINUED) Name: WILMER PARADA [facility] : 1965 Age/S: 55 / M [address] Unit #: [id number] Loc: [place] [address] Phys: Anabela Le MD Acct: [id number] Dis Date: Status: ADM IN PHONE #: [phone] Exam Date: 01/05/2021 1335 FAX #: Reason: CVA EXAMS: CPT: [id number] CT ANGIO NECK [address] <Continued> Posterior communicating arteries: Not visualized Distal [...] 3 Signed Report (CONTINUED) Name: WILMER PARADA [facility] : 1965 Age/S: 55 / M [address] Unit #: [id number] Loc: [place], [place] [address]Ovfh: Anabela Le MD Acct: [id number] Dis Date: Status: ADM IN PHONE #: [phone] Exam Date: 01/05/2021 1335 FAX #: Reason: CVA EXAMS: CPT: [id number] CT ANGIO NECK [address]93[address] <Continued> CC: Anabela Le MD; Yared Scott MD Technologist:Gregory Sahni, RT(R)(CT); .. CTDI: DLP: Trnscb Date/Time: 01/05/2021 (1406) [email or web address] Orig Print D/T: S: 01/05/2021 (3627) PAGE 4 Signed Report- CT ANGIO [id number] 14:06:00 [facility] : 1965 Sex: M Name: WILMER PARADA : 1965 Age/S: 55 / M [address] Unit #: [id number] Loc: [place] [address] Phys: Anabela Le MD Acct: [id number] Dis Date: Status: ADM IN PHONE #: [phone] Exam Date: 01/05/2021 3554 FAX #: Reason: CVA EXAMS: CPT: [id number] CT ANGIO HEAD 10109 Exam: - CT ANGIO HEAD, - CT [...] PARADA : 1965 Age/S: 55 / M [address] Unit #: [id number] Loc: [place] [address] Phys: Anabela Le MD Acct: [id number] Dis Date: Status: ADM IN PHONE #: [phone] Exam Date: 01/05/2021 1330 FAX #: Reason: CVA EXAMS: CPT: [id number] CT ANGIO HEAD [address]8836 <Continued> visualized fascial planes ofthe neck are [...] 2 Signed Report (CONTINUED) Name: WILMER PARADA [facility] : 1965 Age/S: 55 / M [address] [facility] Unit #: [id number] Loc: [place] [address] Phys: Anabela Le MD Acct: [id number] Dis Date: Status: ADM IN PHONE #: [phone] Exam Date: 01/05/2021 1330 FAX #: Reason: CVA EXAMS: CPT: [id number] CT ANGIO HEAD [address]26 <Continued> Posterior communicating arteries: Not visualized Distal [...] 3 Signed Report (CONTINUED) Name: WILMER PARADA [facility] : 1965 Age/S: 55 / M [address] Unit #: [id number] Loc: [place], [place] [address]Sabp: Anabela Le MD Acct: [id number] Dis Date: Status: ADM IN PHONE #: [phone] Exam Date: 01/05/2021 1330 FAX #: Reason: CVA EXAMS: CPT: [id number] CT ANGIO HEAD [address] <Continued> CC: Anabela Le MD; Yared Scott MD Technologist:Gregory Sahni, RT(R)(CT); .. CTDI: DLP: Trnscb Date/Time: 01/05/2021 (1406) [email or web address] Orig Print D/T: S: 01/05/2021 (3850) PAGE 4 Signed ReportBASI METABOLIC [id number] 12:38:00 Test Item Value Reference Range Interpretation [...] CA) 9.0 MG/DL 8.5-10.1 N CBC W/AUTO [id number] 12:28:00 Test Item Value Reference Range Interpretation [...] code NO DIFF/SCN CRITERIA = MDIFF) PROTHROMBIN [id number] 12:27:00 Test Item Value Reference Range Interpretation Comments PT PATIENT (test code = PTP) 12.1 SECONDS 9.3-12.9 N INTERNATIONAL NORMAL RATIO 1.08 INR Unit 0.8-1.2 N (test code = INR) THROMBOPLASTIN TIME [id number] 12:27:00 Test Item Value Reference Range Interpretation Comments THROMBOPLASTIN TIME PARTIAL 33.0 SECONDS 26-35 N (test code = PTT) GLUCOSE BEDSIDE [id number] 11:56:00 Test Item Value Reference Range Interpretation Comments GLUCOSE BEDSIDE TESTING (test code 101 mg/dL 70-110 N = GLUBED) - CT HEAD/BRAIN W/O [id number] 11:53:00 [facility] : 1965 Sex: M Name: WILMER PARADA : 1965 Age/S: 55 / M [address] Unit #: [id number] Loc: [place] [address] Phys: Susan Conway MD Acct: [id number] Dis Date: Status: ADM IN PHONE #: [phone] Exam Date: 01/05/2021 1136 FAX #: Reason: left sided weakness EXAMS: CPT: [id number] CT HEAD/BRAIN W/O CONT 11057 EXAM: CT Head without contrast Location: B2 [...] PARADA : 1965 Age/S: 55 / M [address] Unit #: [id number] Loc: [place] [address] Phys: Susan Conway MD Acct: [id number] Dis Date: Status: ADM IN PHONE #: [phone] Exam Date: 01/05/2021 1139 FAX #: Reason: left sided weakness EXAMS: CPT: [id number] CT HEAD/BRAIN W/O CONT 86999 <Continued> on 01/05/2021 FOR INTERNAL CODING PURPOSES ONLY RESULT CODE: CVR at 1153 Reported and signed by: Diego Paez M.D. CC:Susan Conway MD; Yared Scott MD Technologist:Gregory Sahni RT(R)(CT); .. CTDI: DLP: Trnscb Date/Time: 01/05/2021 (1153) [email or web address] Orig Print D/T: S: 01/05/2021 (1669) PAGE 2 Signed ReportGLUCOSE BEDSIDE [id number] 07:54:00 Test Item Value Reference Range Interpretation Comments GLUCOSE BEDSIDE TESTING (test code 118 mg/dL 70-110 H = GLUBED) GLUCOSE BEDSIDE [id number] 21:52:00 Test Item Value Reference Range Interpretation Comments GLUCOSE BEDSIDE TESTING (test code = 98 mg/dL 70-110 N GLUBED) GLUCOSE BEDSIDE [id number] 15:47:00 Test Item Value Reference Range Interpretation Comments GLUCOSE BEDSIDE TESTING (test code 124 mg/dL 70-110 H = GLUBED) GLUCOSE BEDSIDE [id number] 11:34:00 Test Item Value Reference Range Interpretation Comments GLUCOSE BEDSIDE TESTING (test code 107 mg/dL 70-110 N = GLUBED) GLUCOSE BEDSIDE [id number] 07:37:00 Test Item Value Reference Range Interpretation Comments GLUCOSE BEDSIDE TESTING (test code 109 mg/dL 70-110 N = GLUBED) BASIC METABOLIC [id number] 04:53:00 Test Item Value Reference Range Interpretation [...] code = CA) 8.7 MG/DL 8.5-10.1 N [id number] 04:53:00 Test Item Value Reference Range Interpretation Comments PHOSPHOROUS (test code = PHOS) 3.8 MG/DL 2.5-4.9 N [id number] 04:53:00 Test Item Value Reference Range Interpretation Comments MAGNESIUM (test code = MAG) 2.1 MG/DL 1.8-2.4 N NT PRO-BRAIN NATRIURETIC [id number] 04:53:00 Test Item Value Reference Range Interpretation Comments NT PRO-BRAIN NATRIURETIC PEPTI 753 PG/ML 0-100 H (test code = PROBNP) BASIC METABOLIC [id number] 04:47:00 Test Item Value Reference Range Interpretation [...] code = CA) 8.7 MG/DL 8.5-10.1 N [id number] 04:47:00 Test Item Value Reference Range Interpretation Comments PHOSPHOROUS (test code = PHOS) MG/DL 2.5-4.9 [id number] 04:47:00 Test Item Value Reference Range Interpretation Comments MAGNESIUM (test code = MAG) 2.1 MG/DL 1.8-2.4 N NT PRO-BRAIN NATRIURETIC [id number] 04:47:00 Test Item Value Reference Range Interpretation Comments NT PRO-BRAIN NATRIURETIC PEPTI (test PG/ML 0-100 code = PROBNP) CBC W/AUTO [id number] 04:34:00 Test Item Value Reference Range Interpretation [...] NO DIFF/SCN CRITERIA = MDIFF) GLUCOSE BEDSIDE [id number] 22:32:00 Test Item Value Reference Range Interpretation Comments GLUCOSE BEDSIDE TESTING (test code = 88 mg/dL 70-110 N GLUBED) GLUCOSE BEDSIDE [id number] 17:59:00 Test Item Value Reference Range Interpretation Comments GLUCOSE BEDSIDE TESTING (test code = 97 mg/dL 70-110 N GLUBED) - XR CHEST 1 [id number] 17:25:00 [facility] : 1965 Sex: M Name: WILMER PARADA [facility] : 1965 Age/S: 55 / M [address] Unit #: [id number] Loc: [place] [address] Phys: Rolando Napier AGAHANNAP Acct: [id number] Dis Date: Status: ADM IN PHONE #: [phone] Exam Date: 01/03/2021 1516 FAX #: Reason: Dyspnea EXAMS: CPT: [id number] XR CHEST 1 V 31897 Fluoro Time: DAP (Gy m2): Air Kerma [...] Taylor 1 Signed Report Name: WILMER PARADA : 1965 Age/S: 55 / M [address] Unit #: [id number] Loc: [place] [address] Phys: Rolando Napier Acct: [id number] Dis Date: Status: ADM IN PHONE #: [phone] Exam Date: 01/03/2021 1518 FAX #: Reason: Dyspnea EXAMS: CPT: [id number] XR CHEST 1 V 02425 Fluoro Time: DAP (Gy m2): Air Kerma (mGy): <Continued> Technologist: Polly Mcnamara, RT(R)(CT); Nikole Rider RT(R) Trnscb Date/Time: 01/03/2021 (172) 16 Orig Print D/T: S: 01/03/2021 (4243) PAGE 2 Signed ReportBASIC METABOLIC PANEL 2021-01-03 [...] 8.9 MG/DL 8.5-10.1 N Completed by Nursing: [id number] 14:57:00 Test Item Value Reference Range Interpretation [...] method. Completed by Nursing: NOCOVID 19 INHOUSE [id number] 14:55:00 Test Item Value Reference Range Interpretation Comments COVID 19 INHOUSE AG NEGATIVE Negative Per manu facturer, (test code = negative result s should [id number]) be treated aspr esumptive and, if inconsi [...] co nsistent with COVID-19. Spec Comments: NPROTHROMBIN [id number] 14:54:00 Test Item Value Reference Range Interpretation Comments PT PATIENT (test code = PTP) 11.0 SECONDS 9.3-12.9 N INTERNATIONAL NORMAL RATIO 0.98 INR Unit 0.8-1.2 N (test code = INR) THROMBOPLASTIN TIME [id number] 14:54:00 Test Item Value Reference Range Interpretation Comments THROMBOPLASTIN TIME PARTIAL 30.0 SECONDS 26-35 N (test code = PTT) - CT ANGIO [id number] 14:53:00 [facility] : 1965 Sex: M Name: WILMER PARADA [facility] : 1965 Age/S: 55 / M [address] Unit #: [id number] Loc: [place] [address] Phys: Musa Alfaro DO Acct: [id number] Dis Date: Status: REG ER PHONE #: [phone] Exam Date: 01/03/2021 1429 FAX #: Reason: left sided weakness EXAMS: CPT: [id number] CT ANGIO HEAD 74351 B2 - CT ANGIO NECK, - CT [...] 1 Signed Report (CONTINUED) Name: WILMER PARADA [facility] : 1965 Age/S: 55 / M [address] Unit #: [id number] Loc: [place] [address] Phys: Musa Alfaro DO Acct: [id number] Dis Date: Status: REG ER PHONE #: [phone] Exam Date: 01/03/2021 1425 FAX #: Reason: left sided weakness EXAMS: CPT:[id number] CT ANGIO HEAD [address] <Continued> Both posterior cerebral arteries are normal. [...] Rider, RT(R) CTDI: DLP: Trnscb Date/Time: 01/03/2021 (1453) t.SYEDR.VB7 Orig Print D/T: S: 01/03/2021 (1297) PAGE 2 Signed Report- CT ANGIO [id number] 14:53:00 [facility] : 1965 Sex: M Name: WILMER PARADA : 1965 Age/S: 55 / M [address] Unit #: [id number] Loc: [place] [address] Phys: Musa Alfaro DO Acct: [id number] Dis Date: Status: REG ER PHONE #: [phone] Exam Date: 01/03/20211428 FAX #: Reason: left sided weakness EXAMS: CPT: [id number] CT ANGIO NECK 25367 B2 - CT ANGIO NECK, - CT [...] PARADA : 1965 Age/S: 55 / M [address] Unit #: [id number] Loc: [place] [address] Phys: Musa Alfaro DO Acct: [id number] Dis Date: Status: REG ER PHONE #: [phone] Exam Date: 01/03/20211428 FAX #: Reason: left sided weakness EXAMS: CPT:[id number] CT ANGIO NECK [address] <Continued> Both posterior cerebral arteries are normal. [...] RT(R) CTDI: DLP: Trnscb Date/Time: 01/03/2021 (1452) t.SYEDR.VB7 Orig Print D/T: S: 01/03/2021 (4293) PAGE 2 Signed ReportCBC W/O [id number] 14:32:00 Test Item Value Reference Range Interpretation [...] 7.0-9.6 H MPV) - CT HEAD/BRAIN W/O [id number] 14:20:00 [facility] : 1965 Sex: M Name: WILMER PARADA [facility] : 1965 Age/S: 55 / M [address] Unit #: [id number] Loc: [place] [address] Phys: Musa Alfaro DO Acct: [id number] Dis Date: Status: PRE ER PHONE #: [phone] Exam Date: 01/03/2021 1407 FAX #: Reason: Code Stroke EXAMS: CPT: [id number] CT HEAD/BRAIN W/O CONT 53790 EXAMINATION: Head CT without contrast INDICATION: Code stroke COMPARISON: 11/29/2020 LOCATION: S17 TECHNIQUE: Axial noncontrast head CT was performed. Sagittal and coronal reformatted images were created. CT radiation dose optimization is achieved for this examination by the use of a CT protocol in accordance with ACR practice guidelines and adherence to seaman recommendations. DLP: 836 mGy-cm. FINDINGS: Mild-moderate supratentorial [...] Garibay M.D. CC: Musa Alfaro DO Technologist:Juan Hernanedz, RT(R)(CT); [place] CTDI: DLP: Trnscb Date/Time: 01/03/2021 (3580) VikramPE1 Orig Print D/T: S: 01/03/2021 (4160) PAGE 1 Signed ReportGLUCOSE BEDSIDE [id number] 11:35:00 Test Item Value Reference Range Interpretation Comments GLUCOSE BEDSIDE TESTING (test code 115 MG/DL 70-119 N = GLUBED) CBC W/AUTO [id number] 09:54:00 Test Item Value Reference Range Interpretation [...] 0.00 K/mm3 0.00-0.05 N NRBC#) RECOLLECTGLUCOSE BEDSIDE [id number] 07:34:00 Test Item Value Reference Range Interpretation Comments GLUCOSE BEDSIDE TESTING (test code 116 MG/DL 70-119 N = GLUBED) BASIC METABOLIC [id number] 06:24:00 Test Item Value Reference Range Interpretation [...] to interpret this result as normal/abnormal . [id number] 06:24:00 Test Item Value Reference Range Interpretation Comments MAGNESIUM (test code = MAG) 2.3 MG/DL 1.6-2.6 N GLUCOSE BEDSIDE [id number] 20:37:00 Test Item Value Reference Range Interpretation Comments GLUCOSE BEDSIDE TESTING (test code 118 MG/DL 70-119 N = GLUBED) GLUCOSE BEDSIDE [id number] 16:47:00 Test Item Value Reference Range Interpretation Comments GLUCOSE BEDSIDE TESTING (test code 100 MG/DL 70-119 N = GLUBED) GLUCOSE BEDSIDE [id number] 07:44:00 Test Item Value Reference Range Interpretation Comments GLUCOSE BEDSIDE TESTING (test code 121 MG/DL 70-119 H = GLUBED) GLUCOSE BEDSIDE [id number] 19:59:00 Test Item Value Reference Range Interpretation Comments GLUCOSE BEDSIDE TESTING (test code 135 MG/DL 70-119 H = GLUBED) GLUCOSE BEDSIDE [id number] 15:51:00 Test Item Value Reference Range Interpretation Comments GLUCOSE BEDSIDE TESTING (test code = 85 MG/DL 70-119 N GLUBED) - NM MYOCRD SPECT R/S [id number] 13:57:00 [facility] : 1965 Sex: M ------- Patient Name: WILMER PARADA Unit No: [id number] EXAMS: CPT CODE: [id number] NM MYOCRD SPECT R/S [facility] [address] Patient was brought to the stress test [...] for processing and reporting. CC: Alexa DELA CRUZ,KIKO,VERSE WRITER Reginald; Jake Olmos DO [facility] NAME: WILMER PARADA [facility] PHYS: Alexa Farrell APRN,[address] : 1965 AGE: 54 SEX: [place], [place] [address] LOC: Aleshia245 W PHONE #: [phone] EXAM DATE: 12/01/2020 STATUS: ADM IN FAX #: [phone] RAD NO: DC Dt: PAGE 1 Signed Report Patient Name: WILMER PARADA Unit No: [id number] EXAMS: CPT CODE: [id number] NM MYOCRD SPECT R/S MULT 36139 <Continued> Technologist: Macy Sepulveda Transcribed Date/Time: 12/03/2020 (5849)- t.SYEDR.AA6 Orig Print D/T: S: 12/03/2020 (1400) EMILY Rao NAME: WILMER PARADA [facility] PHYS: MARLENEPA - Reginald,Alexa SKY DIVER,C [address] [place] [address] BLVD : 1965 AGE: 54 SEX: [place], [place] [address] LOC: B.245 W PHONE #: [phone] EXAM DATE: 12/01/2020 STATUS: ADM IN FAX #: [phone] RAD NO: DC Dt: PAGE 2 Signed ReportGLUCOSE BEDSIDE [id number] 11:46:00 Test Item Value Reference Range Interpretation Comments GLUCOSE BEDSIDE TESTING (test code 114 MG/DL 70-119 N = GLUBED) [id number] 07:43:00 Test Item Value Reference Range Interpretation Comments CKMB (test code = 1.1 NG/ML 1.0-3.6 N MONOCLONAL CKMB CKMBT) METHODOLOGY. [id number] 07:43:00 Test Item Value Reference Range Interpretation [...] changes in trop onin levelscharacter istic of MS. GLUCOSE BEDSIDE [id number] 07:35:00 Test Item Value Reference Range Interpretation Comments GLUCOSE BEDSIDE TESTING (test code 104 MG/DL 70-119 N = GLUBED) [id number] 07:24:00 Test Item Value Reference Range Interpretation Comments CKMB (test code = CKMBT) NG/ML 1.0-3.6 [id number] 07:24:00 Test Item Value Reference Range Interpretation [...] changes in trop onin levelscharacter istic of MS. BASIC METABOLIC [id number] 06:50:00 Test Item Value Reference Range Interpretation [...] message] (test code = Index/DL The system whic h HEMINDEX) generated [...] to interpret this result as normal/abnormal . [id number] 06:50:00 Test Item Value Reference Range Interpretation Comments MAGNESIUM (test code = MAG) 2.2 MG/DL 1.6-2.6 N BASIC METABOLIC [id number] 06:24:00 Test Item Value Reference Range Interpretation [...] message] (test code = Index/DL The system compa h HEMINDEX) generated [...] to interpret this result as normal/abnormal . [id number] 06:24:00 Test Item Value Reference Range Interpretation Comments MAGNESIUM (test code = MAG) MG/DL 1.6-2.6 GLUCOSE BEDSIDE [id number] 19:35:00 Test Item Value Reference Range Interpretation Comments GLUCOSE BEDSIDE TESTING (test code 130 MG/DL 70-119 H = GLUBED) GLUCOSE BEDSIDE [id number] 16:35:00 Test Item Value Reference Range Interpretation Comments GLUCOSE BEDSIDE TESTING 103 MG/DL 70-119 N Noti fied Nurse~ (test code = GLUBED) GLUCOSE BEDSIDE [id number] 12:00:00 Test Item Value Reference Range Interpretation Comments GLUCOSE BEDSIDE TESTING 128 MG/DL 70-119 H Noti fied Nurse~ (test code = GLUBED) GLUCOSE BEDSIDE [id number] 08:28:00 Test Item Value Reference Range Interpretation Comments GLUCOSE BEDSIDE TESTING 123 MG/DL 70-119 H Noti fied Nurse~ (test code = GLUBED) GLUCOSE BEDSIDE [id number] 19:40:00 Test Item Value Reference Range Interpretation Comments GLUCOSE BEDSIDE TESTING (test code = 84 MG/DL 70-119 N GLUBED) GLUCOSE BEDSIDE [id number] 16:53:00 Test Item Value Reference Range Interpretation Comments GLUCOSE BEDSIDE TESTING 100 MG/DL 70-119 N Noti fied Nurse~ (test code = GLUBED) GLUCOSE BEDSIDE [id number] 13:00:00 Test Item Value Reference Range Interpretation Comments GLUCOSE BEDSIDE TESTING (test code 128 MG/DL 70-119 H = GLUBED) GLUCOSE BEDSIDE [id number] 08:35:00 Test Item Value Reference Range Interpretation Comments GLUCOSE BEDSIDE TESTING (test code = 95 MG/DL 70-119 N GLUBED) GLUCOSE BEDSIDE [id number] 19:49:00 Test Item Value Reference Range Interpretation Comments GLUCOSE BEDSIDE TESTING (test code 117 MG/DL 70-119 N = GLUBED) GLUCOSE BEDSIDE [id number] 16:52:00 Test Item Value Reference Range Interpretation Comments GLUCOSE BEDSIDE TESTING (test code 103 MG/DL 70-119 N = GLUBED) GLUCOSE BEDSIDE [id number] 12:30:00 Test Item Value Reference Range Interpretation Comments GLUCOSE BEDSIDE TESTING (test code 121 MG/DL 70-119 H = GLUBED) GLUCOSE BEDSIDE [id number] 07:43:00 Test Item Value Reference Range Interpretation Comments GLUCOSE BEDSIDE TESTING (test code = 96 MG/DL 70-119 N GLUBED) COMPREHENSIVE METABOLIC [id number] 05:53:00 Test Item Value Reference Range Interpretation [...] (test code = MG Index/DL The system [employer] HEMINDEX) generated this result transmit breanne reference [...] ave rage [Automated mess age] The system [employer] generated this result transmit breanne reference range : 1.48-3.22 Avg. The reference range was not used to interpret this result as normal/abnormal . [id number] 05:53:00 Test Item Value Reference Range Interpretation Comments MAGNESIUM (test code = MAG) 2.2 MG/DL 1.6-2.6 N COMPREHENSIVE METABOLIC [id number] 05:38:00 Test Item Value Reference Range Interpretation [...] to interpret this result as normal/abnor mal. [id number] 05:38:00 Test Item Value Reference Range Interpretation Comments MAGNESIUM (test code = MAG) MG/DL 1.6-2.6 GLYCOSYLATED HEMOGLOBIN (HA1C)2020-11-30 05:21:00 Test Item Value Reference Range Interpretation Comments GLYCOSYLATED HEMOGLOBIN (HA1C) 5.9 % IS-A1C 4.5-5.6 H (test code = GLYHGB) Specimen comments: use blood sample in the labComments to Dock Clerk: use blood sample in the labCB W/AUTO [id number] 05:12:00 Test Item Value Reference Range Interpretation [...] code = 0.00 K/mm3 0.00-0.05 N NRBC#) [id number] 00:17:00 Test Item Value Reference Range Interpretation Comments CKMB (test code = 1.4 NG/ML 1.0-3.6 N MONOCLONAL CKMB CKMBT) METHODOLOGY. [id number] 00:17:00 Test Item Value Reference Range Interpretation [...] changes in trop onin levelscharacter istic of MS. [id number] 23:57:00 Test Item Value Reference Range Interpretation Comments CKMB (test code = CKMBT) NG/ML 1.0-3.6 [id number] 23:57:00 Test Item Value Reference Range Interpretation [...] changes in trop onin levelscharacter istic of MS. GLUCOSE BEDSIDE [id number] 20:50:00 Test Item Value Reference Range Interpretation Comments GLUCOSE BEDSIDE TESTING (test code 126 MG/DL 70-119 H = GLUBED) [id number] 20:10:00 Test Item Value Reference Range Interpretation Comments CKMB (test code = 1.6 NG/ML 1.0-3.6 N MONOCLONAL CKMB CKMBT) METHODOLOGY. [id number] 20:10:00 Test Item Value Reference Range Interpretation [...] changes in trop onin levelscharacter istic of MS. [id number] 19:57:00 Test Item Value Reference Range Interpretation Comments CKMB (test code = CKMBT) NG/ML 1.0-3.6 [id number] 19:57:00 Test Item Value Reference Range Interpretation [...] changes in trop onin levelscharacter istic of MS. COVID 19 Asymptomatic IH [id number] 18:32:00 Test Item Value Reference Range Interpretation Comments COVID 19 Asymptomatic IH AG (test Negative Neg code = COVNONPUIAG) - CT ANGIO [id number] 17:08:00 [facility] : 1965 Sex: M Patient Name: WILMER PARADA Unit No: [id number] EXAMS: CPT CODE: [id number] CT ANGIO HEAD [address] Dictation location: H37. CT ANGIOGRAM OF THE NECK AND HEAD WITH IV CONTRAST; MIP AND 3-D RECONSTRUCTIONS HISTORY: Left sided weakness COMPARISON: None TECHNIQUE: Axial CT images of the neck and head were obtained with coronal and/or sagittal reformatted views. MIP and/or 3-D reconstruction were obtained of the carotid arteries in the neck and [place]. Automated exposure control, iterative reconstruction [...] definite occlusion or aneurysm. EMILY Rao NAME: [address] PHYS: ARVIN.Dinesh - Jake Olmos, [place] [address] : 1965 AGE: 54 SEX: M LOC: B.ERS PHONE #: [phone] EXAM DATE: 11/29/2020 STATUS: REG ER FAX #: [phone] RAD #: D/C DT PAGE 1 Signed Report (CONTINUED) Patient Name: WILMER PARADA Unit No: [id number] EXAMS: CPT CODE: [id number] CT ANGIO HEAD [address] <Continued> at 1708 Reported and signed by: Uriah Moran MD CC: Jake Olmos DO Dictated Date/Time: 11/29/2020 (1708) Technologist: Luisana Mederos CTDI: 73.04 DLP: 2044.21 Trnscrpt: 11/29/2020 (1708) [email or web address] EMILY Rao NAME: [address] PHYS: ARVIN.Dinesh - Jake Olmos, [place] [address] : 1965 AGE: 54 SEX: M LOC: B.ERS PHONE #: [phone] EXAM DATE: 11/29/2020 STATUS: REG ER FAX #: [phone] RAD #: D/C DT PAGE 2 Signed Report Patient Name: WILMER PARADA Unit No: [id number] EXAMS: CPT CODE: [id number] CT ANGIO HEAD [address]686 <Continued> Orig Print D/T: S: 11/29/2020 (1711) EMILY Rao NAME: [address] PHYS: ARVIN.02 - [place] [address] : 1965 AGE: 54 SEX: M LOC: LISA PHONE #: [phone] EXAM DATE: 11/29/2020 STATUS: REG ER FAX #: [phone] RAD #: D/C DT PAGE 3 Signed Report- CT ANGIO [id number] 17:08:00 [facility] WIL[facility] : 1965 Sex: M Patient Name: WILMER PARADA Unit No: [id number] EXAMS: CPT CODE: [id number] CT ANGIO NECK [address] Dictation location: [facility]. CT ANGIOGRAM OF THE NECK AND HEAD WITH IV CONTRAST; MIP AND 3-D RECONSTRUCTIONS HISTORY: Left sided weakness COMPARISON: None TECHNIQUE: Axial CT images of the neck and head were obtained with coronal and/or sagittal reformatted views. MIP and/or 3-D reconstruction were obtained of the carotid arteries in the neck and [place]. Automated exposure control, iterative reconstruction [...] definite occlusion or aneurysm. EMILY Rao NAME: [address] PHYS: ARVIN. - [place], [place] [address] : 1965 AGE: 54 SEX: M LOC: B.ERS PHONE #: [phone] EXAM DATE: 11/29/2020 STATUS: REG ER FAX #: [phone] RAD #: D/C DT PAGE 1 Signed Report (CONTINUED) Patient Name: WILMER PARADA Unit No: [id number] EXAMS: CPT CODE: [id number] CT ANGIO NECK [address] <Continued> at 1708 Reported and signed by: Uriah Moran MD CC: Jake Olmos DO Dictated Date/Time: 11/29/2020 (1707) Technologist: Luisana Mederos CTDI: 0 DLP: 0 Trnscrpt: 11/29/2020 (1708) [email or web address] EMILY Rao NAME: [address] PHYS: ARVIN. - [place], [place] [address] : 1965 AGE: 54 SEX: M LOC: B.ERS PHONE #: [phone] EXAM DATE: 11/29/2020 STATUS: REG ER FAX #: [phone] RAD #: D/C DT PAGE 2 Signed Report Patient Name: WILMER PARADA Unit No: [id number] EXAMS: CPT CODE: [id number] CT ANGIO NECK [address]20 <Continued> Orig Print D/T: S: 11/29/2020 (1711) [facility] Pedro Pablo NAME: WILMER PARADA [address] [place] [address] PHYS: ARVIN.02 - Jake Olmos, [place] [address] : 1965 AGE: 54 SEX: M LOC: BTejERS PHONE #: [phone] EXAM DATE: 11/29/2020 STATUS: REG ER FAX #: [phone] RAD #: D/C DT PAGE 3 Signed Report- XR CHEST 1 [id number] 11:48:00 [facility] : 1965 Sex: M Name: WILMER PARADA [facility] : 1965 Age/S: 54 / M [id number] [address] Unit #: [id number] Loc: [place] [address] Phys: Maximino Ham MD Acct: [id number] Dis Date: Status: REG ER PHONE #: [phone] Exam Date: 11/29/2020 1101 FAX #: Reason: chest pain, stroke symptoms EXAMS: CPT: [id number] XR CHEST 1 V 63526 Fluoro Time: DAP (Gy m2): Air Kerma [...] PAGE 1 Signed Report Name: WILMER PARADA [facility] : 1965 Age/S: 54 / M [address] [address] Unit #: [id number] Loc: [place] [address] Phys: Maximino Ham MD Acct: [id number] Dis Date: Status: REG ER PHONE #: [phone] Exam Date: 11/29/2020 1100 FAX #: Reason: chest pain, stroke symptoms EXAMS: CPT: [id number] XR CHEST 1 V 62049 Fluoro Time: DAP (Gy m2): Air Kerma (mGy): <Continued> Technologist: Bandar Tirado, RT(R)(CT) Trnscb Date/Time: 11/29/2020 (1148) [email or web address] Orig Print D/T: S: 11/29/2020 (6865) PAGE 2 Signed Report- CT ABD PELVIS [id number] 11:20:00 [facility] : 1965 Sex: M Name: WILMER PARADA [facility] : 1965 Age/S: 54 / M [id number] Unit #: [id number] Loc: [place] [address] Phys: Maximino Ham MD Acct: [id number] Dis Date: Status: REG ER PHONE #: [phone] Exam Date: 11/29/2020 1046 FAX #: Reason: rule out dissection EXAMS: CPT: [id number] CT ABD PELVIS W/CONT 02109 LOCATION: T18 EXAM: CT CHEST WITH CONTRAST [...] cardiomegaly. PAGE 1 Signed Report (CONTINUED) Name: IWLMER PARADA : 1965 Age/S: 54 / M [address] [address] Unit #: [id number] Loc: [place] [address] Phys: Maximino Ham MD Acct: [id number] Dis Date: Status: REG ER PHONE #: [phone] Exam Date: 11/29/2020 1046 FAX #: Reason: rule out dissection EXAMS: CPT: [id number] CT ABD PELVIS W/CONT 19396 <Continued> at 1120 Reported and signed by: Bill Lake M.D. CC: Maximino Ham MD Technologist:Gala Menard, RT(R); Nikole CTDI: DLP: Trnscb Date/Time: 11/29/2020 (1120) [email or web address] Orig Print D/T: S: 11/29/2020 (1123) PAGE 2 Signed Report- CT CHEST W/CONTRAST 2020-11-29 11:20:00 [facility] : 1965 Sex: M Name: WILMER PARADA [facility] : 1965 Age/S: 54 / M [address] [address] Unit #: [id number] Loc: [place] [address] Phys: Maximino Ham MD Acct: [id number] Dis Date: Status: REG ER PHONE #: [phone] Exam Date: 11/29/2020 1056 FAX #: Reason: rule out dissection EXAMS: CPT: [id number] CT CHEST W/CONTRAST 97567 LOCATION: T18 EXAM: CT CHEST WITH CONTRAST [...] 1 Signed Report (CONTINUED) Name: WILMER PARADA [facility] : 1965 Age/S: 54 / M [address] [address] Unit #: [id number] Loc: [place] [address] Phys: Maximino Ham MD Acct: [id number] Dis Date: Status: REG ER PHONE #: [phone] Exam Date: 11/29/2020 1056 FAX #: Reason: rule out dissection EXAMS: CPT: [id number] CT CHEST W/CONTRAST 33779 <Continued> at 1120 Reported and signed by: Bill Lake M.D. CC: Maximino Ham MD Technologist:Gala Menard, RT(R); Nikole CTDI: DLP: Trnscb Date/Time: 11/29/2020 (1120) [email or web address] Orig Print D/T: S: 11/29/2020 (1123) PAGE 2 Signed Report- CT HEAD/BRAIN W/O CONT 2020-11-29 11:15:00 [facility] : 1965 Sex: M Name: WILMER PARADA [facility] : 1965 Age/S: 54 / M [address] [address] Unit #: [id number] Loc: [place] [address] Phys: Maximino Ham MD Acct: [id number] Dis Date: Status: REG ER PHONE #: [phone] Exam Date: 11/29/2020 1045 FAX #: Reason: CVA symptoms EXAMS: CPT: [id number] CT HEAD/BRAIN W/O CONT 02388 EX AM: - CT HEAD/BRAIN W/O CONT [...] (1115) [email or web address] Orig Print D/T: S: 11/29/2020 (5854) PAGE 1 Signed ReportCOMPREHENSIVE METABOLIC [id number] 10:03:00 Test Item Value Reference Range Interpretation [...] N code = ALKP) Completed by Nursing: [id number] 10:03:00 Test Item Value Reference Range Interpretation [...] yby method. Completed by Nursing: NOCBC W/AUTO [id number] 09:45:00 Test Item Value Reference Range Interpretation [...]
[2021-07-12 12:15] LABS: Absolute Lymphocytes (CBC) 2.1 K/uL (0.7-4.9); Basophils % 0.9 % (0-1.3); Hematocrit 43.6 % (39.6-49.0); MPV 8.7 fL (7.6-11.3); RBC Red Blood Cell Count 5.35 M/uL (4.33-5.43)
[2021-07-12 12:19] LABS: Protime INR 1.02
--- NOTE | 2021-07-12 12:34 | RAD REPORT ---
EXAM DESCRIPTION: CT - Head Brain Wo Cont - 07/12/2021 12:18 pm CLINICAL HISTORY: drowsiness, decreased level of consciousness COMPARISON: Head Brain Wo Cont dated 12/28/2017 TECHNIQUE: Axial 5 mm thick images of the head were obtained without IV contrast. All CT scans are performed using dose optimization technique as appropriate and may include automated exposure control or mA/KV adjustment according to patient size. FINDINGS: No intracranial hemorrhage, mass, edema or shift of mid-line structures. No acute infarcti on changes seen. No abnormal extra-axial fluid collections. Mild volume loss changes are evident comp ared to what is typically seen at this age. Ventricles are still in normal range for size. Scattered white matter hypodensities are present similar to comparison. Mastoid air cells and visualized portions of the paranasal sinuses are clear. Left globe prosthesis i n place. No acute bony findings. IMPRESSION: No acute intracranial abnormality identified. Above detailed findings are similar to the 2018 study.
[2021-07-12 12:35] LABS: ALT/SGPT 22 U/L (12-78); AST/SGOT 20 U/L (15-37); Albumin 3.6 g/dL (3.4-5.0); Alkaline Phosphatase 69 U/L (45-117); BUN Blood Urea Nitrogen 22 mg/dL (7-18); Bicarbonate 30 mmol/L (21-32); Bilirubin Direct 0.1 mg/dL (0-0.2); Bilirubin Total 0.5 mg/dL (0.2-1.0); Glucose Level 102 mg/dL (74-106); Magnesium 2.2 mg/dL (1.8-2.4); NT PRO-BNP 2574 pg/mL (<125); Potassium 3.8 mmol/L (3.5-5.1); Protein, Total 8.1 g/dL (6.4-8.2); Sodium Level 139 mmol/L (136-145); Troponin (Emerg Dept Use Only) < 0.02 ng/mL (0.0-0.045)
--- NOTE | 2021-07-12 12:40 | RAD REPORT ---
EXAM DESCRIPTION: RAD - Chest Single View - 07/12/2021 12:17 pm CLINICAL HISTORY: weakness, cadiac history COMPARISON: Chest Single View dated 07/08/2021; Chest Single View dated 04/12/2021; Chest Single View dated 03/11/2021; Chest Single View dated 11/16/2018 FINDINGS: Lines: Pacemaker. Lungs: No evidence of edema or pneumonia. Pleural: No significant pleural effusions or pneumothorax. Cardiac: Cardiomegaly. Bones: No acute fractures. Other: IMPRESSION: No acute cardiopulmonary disease.
[2021-07-12] MEDS ORDERED: HYDROCODONE/APAP 5/325 MG TAB ONE (15:12)
--- NOTE | 2021-07-12 15:42 | ER ---
Nurse's Notes [facility] Name: Bryan Watts Age: 55 yrs Sex: Male : 1965 Arrival Date: 07/12/2021 Time: 11:40 Bed 12 Private MD: Diagnosis: Weakness;Chest pain, unspecified Presentation: 07/12 11:57 Chief complaint: Chief complaint: EMS states: pt was at work and was having a hard time iw staying awake, recently had a life vest placed, pt awakens to tactile stimuli but is very drowsy, BS-129, pt unable to give me an accurate med history. 12:09 Coronavirus screen: At this time, the client does not indicate any symptoms associated iw with coronavirus-19. Ebola Screen: Patient negative for fever greater than or equal to 101.5 degrees Fahrenheit, and additional compatible Ebola Virus Disease symptoms Patient denies exposure to infectious person. Patient denies travel to an Ebola-affected area in the 21 days before illness onset. No symptoms or risks identified at this time. Onset of symptoms was July 12, 2021. 12:09 Method Of Arrival: EMS: [facility] iw 12:09 Acuity: GABBY 2 iw 12:10 Initial Sepsis Screen: Does the patient meet any 2 criteria? No. Patient's initial iw sepsis screen is negative. Does the patient have a suspected source of infection? No. Patient's initial sepsis screen is negative. Risk Assessment: Do you want to hurt yourself or someone else? Patient reports no desire to harm self or others. Historical: - Allergies: 11:56 No Known Allergies; iw - Home Meds: 11:55 amlodipine 10 mg tab 1 tab once daily [Active]; atorvastatin 80 mg Oral tab 1 tab once iw daily [Active]; carvedilol 25 mg Oral tab 1 tab 2 times per day [Active]; hydralazine 100 mg Oral tab 1 tab 4 times per day [Active]; lisinopril 20 mg Oral tab 1 tab twice a day [Active]; - PMHx: 11:55 Diabetes - IDDM; Hyperlipidemia; Hypertension; iw - PSHx: 11:55 Pace maker; iw - Social history:: Smoking status: Patient denies any tobacco usage or history of. Screenin:38 Abuse screen: Denies threats or abuse. Denies injuries from another. Abuse screen: iw Denies threats or abuse. Nutritional screening: No deficits noted. Tuberculosis screening: No symptoms or risk factors identified. Fall Risk IV access (20 points). Assessment: 12:37 General: Appears in no apparent distress. Behavior is drowsy. Pain: Complains of pain iw in chest. Neuro: Level of Consciousness is obeys commands, listless, Oriented to person, Moves all extremities. Cardiovascular: Reports chest pain, Denies shortness of breath, Patient's skin is warm and dry. Respiratory: Respiratory effort is even, unlabored, Respiratory pattern is regular. Derm: Skin is intact. Musculoskeletal: Range of motion: intact in all extremities. 13:00 Reassessment: pt requesting pain medication for chest pain but still is very drowsy , iw advised pt that I cannot give him pain medicine that will make him more drowsy than he already is, will continue to monitor. 15:14 Reassessment: Patient appears in no apparent distress at this time. Patient and/or iw family updated on plan of care and expected duration. Pain level reassessed. Patient is alert, oriented x 3, equal unlabored respirations, skin warm/dry/pink. pt more alert at this time, requesting pain medicine, Dr. Buckner notified, pt medicated with 5 mg [place], pt talking on the phone. Vital Signs: 12:11 BP 167 / 114; Pulse 77; Resp 18 S; Temp 98.0; Pulse Ox 100% on R/A; Weight 136.53 kg; iw Height 6 ft. 2 in. (187.96 cm); 12:38 BP 148 / 112; Pulse 75; Resp 18; Pulse Ox 100% on R/A; iw 13:35 BP 137 / 97; Pulse 78; Resp 16; Pulse Ox 100% on R/A; iw 12:11 Body Mass Index 38.65 (136.53 kg, 187.96 cm) iw ED Course: 11:40 Patient arrived in ED. iw 12:09 Kelsie Walsh, RN is Primary Nurse. iw 12:10 Triage completed. iw 12:10 Arm band placed on. iw 12:10 Initial lab(s) drawn, by me, sent to lab. Maintain EMS IV. Dressing intact. Good blood iw return noted. Site clean \T\ dry. Gauge \T\ site: 20 RAC. 12:17 XRAY Chest (1 view) In Process Unspecified. EDMS 12:18 CT Head Brain wo Cont In Process Unspecified. EDMS 12:22 Ze Buckner MD is Attending Physician. kdr 13:00 Patient has correct armband on for positive identification. iw 16:09 No provider procedures requiring assistance completed. IV discontinued, intact, iw bleeding controlled, No redness/swelling at site. Pressure dressing applied. Administered Medications: 15:15 Drug: HYDROcodone-acetaminophen 5 mg-325 mg 1 tabs Route: PO; iw 16:00 Follow up: Response: No adverse reaction iw Outcome: 15:41 Discharge ordered by . kdr 16:09 Discharged to home ambulatory. iw 16:09 Condition: good 16:09 Discharge instructions given to patient, Instructed on discharge instructions, follow up and referral plans. Demonstrated understanding of instructions, follow-up care, medications. 16:10 Patient left the ED. 3 Signatures: Dispatcher [employer] EDSD Ze Buckner MD MD [facility] Kelsie Walsh RN RN Maria Luisa Pathak 3 Corrections: (The following items were deleted from the chart) 12:10 11:57 Chief complaint: iw iw 12:37 12:11 BP 167 / 114; Pulse 77bpm; iw iw
--- NOTE | 2021-07-12 15:42 | EDPHYS ---
Physician Documentation [facility] Name: Bryan Watts Age: 55 yrs Sex: Male : 1965 Arrival Date: 07/12/2021 Time: 11:40 Bed 12 Private MD: ED Physician Ze Buckner HPI: 07/12 16:36 This 55 yrs old Black Male presents to ER via EMS with complaints of General Weakness. kdr 16:36 The patient or guardian reports chest pain that is located primarily in the substernal kdr area, anterior chest wall. Onset: at an unknown time. This pain has been ongoing but waxing and waning for some weeks if not months. Patient was discharged from this facility in the last 48 hours. He was admitted for similar complaint and pain. I discussed the case with the hospitalist who had seen him and he informed me that the patient had had a negative stress test recently. Patient did not have any other focal complaints of. The pain does not radiate. Associated signs and symptoms: Pertinent positives:. The chest pain is described as aching, burning, dull. Duration: The patient or guardian reports multiple episodes, that are intermittent, that wax and wane, with no pattern. Modifying factors:. Severity of pain: in the emergency department the pain is unchanged. The patient has not experienced similar symptoms in the past, but family has similar symptoms. Historical: - Allergies: 11:56 No Known Allergies; iw - Home Meds: 11:55 amlodipine 10 mg tab 1 tab once daily [Active]; atorvastatin 80 mg Oral tab 1 tab once iw daily [Active]; carvedilol 25 mg Oral tab 1 tab 2 times per day [Active]; hydralazine 100 mg Oral tab 1 tab 4 times per day [Active]; lisinopril 20 mg Oral tab 1 tab twice a day [Active]; - PMHx: 11:55 Diabetes - IDDM; Hyperlipidemia; Hypertension; iw - PSHx: 11:55 Pace maker; iw - Social history:: Smoking status: Patient denies any tobacco usage or history of. ROS: 16:36 Constitutional: Negative for fever, chills, and weight loss, Eyes: Negative for injury, kdr pain, redness, and discharge, ENT: Negative for injury, pain, and discharge, Neck: Negative for injury, pain, and swelling, Cardiovascular: Negative for chest pain, palpitations, and edema, Respiratory: Negative for shortness of breath, cough, wheezing, and pleuritic chest pain. Exam: 16:36 Constitutional: This is a well developed, well nourished patient who is awake, alert, kdr and in no acute distress. Head/Face: Normocephalic, atraumatic. Eyes: Pupils equal round and reactive to light, extra-ocular motions intact. Lids and lashes normal. Conjunctiva and sclera are non-icteric and not injected. Cornea within normal limits. Periorbital areas with no swelling, redness, or edema. ENT: Nares patent. No nasal discharge, no septal abnormalities noted. Tympanic membranes are normal and external auditory canals are clear. Oropharynx with no redness, swelling, or masses, exudates, or evidence of obstruction, uvula midline. Mucous membranes moist. Neck: Trachea midline, no thyromegaly or masses palpated, and no cervical lymphadenopathy. Supple, full range of motion without nuchal rigidity, or vertebral point tenderness. No Meningismus. Chest/axilla: Normal chest wall appearance and motion. Nontender with no deformity. No lesions are appreciated. Cardiovascular: Regular rate and rhythm with a normal S1 and S2. No gallops, murmurs, or rubs. Normal PMI, no JVD. No pulse deficits. Respiratory: Lungs have equal breath sounds bilaterally, clear to auscultation and percussion. No rales, rhonchi or wheezes noted. No increased work of breathing, no retractions or nasal flaring. Abdomen/GI: Soft, non-tender, with normal bowel sounds. No distension or tympany. No guarding or rebound. No evidence of tenderness throughout. Back: No spinal tenderness. No costovertebral tenderness. Full range of motion. Skin: Warm, dry with normal turgor. Normal color with no rashes, no lesions, and no evidence of cellulitis. MS/ Extremity: Pulses equal, no cyanosis. Neurovascular intact. Full, normal range of motion. Neuro: Awake and alert, GCS 15, oriented to person, place, time, and situation. Cranial nerves II-XII grossly intact. Motor strength 5/5 in all extremities. Sensory grossly intact. Cerebellar exam normal. Normal gait. Psych: Awake, alert, with orientation to person, place and time. Behavior, mood, and affect are within normal limits. Vital Signs: 12:11 BP 167 / 114; Pulse 77; Resp 18 S; Temp 98.0; Pulse Ox 100% on R/A; Weight 136.53 kg; iw Height 6 ft. 2 in. (187.96 cm); 12:38 BP 148 / 112; Pulse 75; Resp 18; Pulse Ox 100% on R/A; iw 13:35 BP 137 / 97; Pulse 78; Resp 16; Pulse Ox 100% on R/A; iw 12:11 Body Mass Index 38.65 (136.53 kg, 187.96 cm) iw MDM: 15:41 Patient medically screened. kdr 16:36 Data reviewed: vital signs, nurses notes, lab test result(s), radiologic studies. kdr Counseling: I had a detailed discussion with the patient and/or guardian regarding: the historical points, exam findings, and any diagnostic results supporting the discharge/admit diagnosis, lab results, radiology results. ED course: Dave the case with Dr. Salmon who will discharge the patient within the last 48 hours from this facility. The patient has had a full cardiac work-up on the last admission. He denies any new discomfort. Apparently he was found somnolent at work today. In discussion with Dr. Salmon, he indicated that the patient has a sleep apnea issue and that he was scheduled to have that further evaluated and managed as an outpatient. 07/12 11:55 Order name: Basic Metabolic Panel; Complete Time: 13:35 07/12 11:55 Order name: CBC with Diff; Complete Time: 13:35 07/12 11:55 Order name: LFT's; Complete Time: 13:35 07/12 11:55 Order name: Magnesium; Complete Time: 13:35 07/12 11:55 Order name: NT PRO-BNP; Complete Time: 13:35 07/12 11:55 Order name: PT-INR; Complete Time: 13:35 07/12 11:55 Order name: Troponin (emerg Dept Use Only); Complete Time: 13:35 07/12 11:55 Order name: XRAY Chest (1 view); Complete Time: 13:35 07/12 11:55 Order name: EKG; Complete Time: 11:55 07/12 11:55 Order name: Cardiac monitoring; Complete Time: 12:38 iw 07/12 11:59 Order name: CT Head Brain wo Cont; Complete Time: 13:35 iw 07/12 12:32 Order name: Glucose, Ancillary Testing; Complete Time: 13:35 EDMD 07/12 15:14 Order name: Diet 2 Gm Sodium; Complete Time: 15:14 iw 07/12 11:55 Order name: EKG - Nurse/Tech; Complete Time: 12:38 iw 07/12 11:55 Order name: IV Saline Lock; Complete Time: 12:38 iw 07/12 11:55 Order name: Labs collected and sent; Complete Time: 12:39 iw 07/12 11:55 Order name: O2 Per Protocol; Complete Time: 12:39 iw 07/12 11:55 Order name: O2 Sat Monitoring; Complete Time: 12:39 iw Administered Medications: 15:15 Drug: HYDROcodone-acetaminophen 5 mg-325 mg 1 tabs Route: PO; iw 16:00 Follow up: Response: No adverse reaction iw Disposition Summary: 07/12/21 15:41 Discharge Ordered Location: Home kdr Problem: new kdr Symptoms: have improved kdr Condition: Fair kdr Diagnosis - Weakness kdr - Chest pain, unspecified kdr Followup: kdr - With: Private Physician - When: 2 - 3 days - Reason: If symptoms return, Further diagnostic work-up, Recheck today's complaints, Continuance of care, Re-evaluation by your physician Discharge Instructions: - Discharge Summary Sheet kdr - Nonspecific Chest Pain, Adult, [id number] kdr - Weakness, [id number] kdr Forms: - Medication Reconciliation Form kdr - Thank You Letter kdr Signatures: Dispatcher [employer] Ze Zambrano MD MD kdr Kelsie Walsh, RN RN iw
[2021-07-12 16:14] VITALS: TEMP 98; O2SAT 100
[2021-07-12 16:18] VITALS: BP 137/97
== END 2021-07-12 16:10 | disposition home or self-care (01) ==
LOC: ER 11:16
DX: R07.9 Chest pain, unspecified (principal); I10 Essential (primary) hypertension; E11.9 Type 2 diabetes mellitus without complications; Z95.0 Presence of cardiac pacemaker
CPT/HCPCS: 36415; 70450; 71045; 80048; 80076; 82947; 83735; 83880; 84484; 85025; 85610; 93005; 99284

== ENCOUNTER 2021-07-28 11:11 | Emergency (ER) | payer OTHER ==
--- OUTSIDE RECORDS SUMMARY | 2021-07-28 11:19 | XMS REPORT | Continuity of Care Document ---
:1965 Author Organization [facility] t Address [address] [place] [address] Care Team Providers Name Role Phone Robert BOYER, A Primary Care Physician Fermin BAKER Attending Clinician Unavailable Rolo BAKER, B Attending Clinician Unavailable Robert BOYER, A Attending Clinician WATTS Attending Clinician Unavailable Watts DO Attending Clinician ISELA Attending Clinician Unavailable Tc WARP SPLITTER, F Attending Clinician Isela BOYER Attending Clinician Heather BOYER, C Attending Clinician [phone] Orlin Juan Attending Clinician Unavailable Dariel BOYER, Gene Attending Clinician Rosalia BOYER, S Attending Clinician Artemio ALUMINUM POLISHER, L Attending Clinician Kathia Attending Clinician Unavailable Nasim Attending Clinician Unavailable Tyler Attending Clinician Unavailable Elisha Attending Clinician Unavailable CARRI PARKS Attending Clinician Unavailable Physician, Primary or Family Admitting Clinician Unavailwoo e ISELA Admitting Clinician Unavailable Isela BOYER Admitting Clinician Orlin Juan Admitting Clinician Unavailable Santana BOYER Admitting Clinician Kathia Admitting Clinician Unavailable Tyler Admitting Clinician Unavailable Elisha Admitting Clinician Unavailable CARRI PARKS Admitting Clinician Unavailable Payers Payer Name Policy Type Policy Number Effective Date Expiration Date S ource Problems Condition Condition Condition Status Onset Resolution Last Treating Co mments Source Name Details Category Date Date Treatment Clinician Date COVID-19 COVID-19 Disease Active 2020-08 Unive rs virus virus 2-20 ity of infection infection 00:00: [facility] Hypertensi Hypertensi Disease Active 2020-08 U nivers ve ve 2-20 ity of emergency emergency 00:00: [facility] Troponin I Troponin I Disease Active 2020-08 U nivers above above 2-20 ity of reference reference 00:00: [facility] range range [facility] CHF with CHF with Disease Active 2020-08 Unive rs unknown unknown 1-29 ity of LVEF LVEF 00:00: [address] Obesity Obesity Disease Active 2020-08 Univers (BMI (BMI 0-16 ity of 30-39.9) 30-39.9) 00:00: [address] Acute on Acute on Disease Active 2020-08 [...] weakness weakness 5-17 ity of 00:00: [place] [facility] Stroke, Stroke, Disease Active Univers acute, acute, 5-17 ity of embolic embolic 00:00: [place] 00 [facility] Noncomplia Noncomplia Disease Active U nivers nce nce 5-11 ity of 00:00: [place] 00 [facility] Acute CVA Acute CVA Disease Active Uni vers (cerebrova (cerebrova 3-24 it y of scular scular 00:00: [place] accident) accident) 00 [facility] Branch Dyslipidem Dyslipidem Disease Active U [...] Medical defibrilla 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) in place place Heart Heart Disease Active [...] it y of etiology etiology 00:00: [place] [facility] Non-intrac Non-intrac Disease Active U nivers table table 2-06 ity of vomiting vomiting 00:00: [place] with with Medical nausea, nausea, Branch unspecifie unspecifie d vomiting d vomiting type type Cardiomyop Cardiomyop Disease Active U nivers athy athy 1-21 ity of 00:00: [place] [facility] Stage 3 Stage 3 Disease [...] Added automatic ally from request for surgery [id number] Atypical Atypical Disease Active 2015-08 Unive rs chest pain chest pain 2-20 it y of 00:00: [place] [facility] PRAVEEN on PRAVEEN on Disease Active Univers CPAP CPAP 4-14 ity of 00:00: [place] [facility] Chronic Chronic Disease Active Univers combined combined 2-20 ity of systolic systolic 00:00: [place] and and Medical diastolic diastolic Bran ch CHF, NYHA [...] Disease Active 2014-08 Uni vers hypertensi hypertensi 0- it y of on on 00:00: [place] [facility] 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 0- ity of mellitus mellitus 00:00: [place] with with 00 Medical complicati complicati Br anch on, on, without without long-term long-term current current use of use of insulin insulin Loss of Loss of Disease Active 2014-08 Univers one eye one eye 0- ity of 00:00: [place] [facility] CVA, old, CVA, old, 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 0 it y of s s 00:00: [place] [facility] Chronic Chronic Disease Active 2014-08 [facility] dental dental 0- ity of pain pain 00:00: [place] [facility] Allergies, Adverse Reactions, Alerts Allergy Allergy Status Severity Reaction(s) Onset Inactive Treating Comm ents Source Name Type Date Date Clinician No Known DA Active U [facility] Allergie 4-30 Clear s 00:00: [place] 00 [facility] No Known DA Active U [facility] Allergie 4-30 Clear s 00:00: [place] 00 [facility] No Known DA Active U [facility] Allergie 4-29 [place] 00:00: d 00 [facility] Isosorbi Propensi Active Other - See Severe U nivers de ty to comments 04-04 hypotensi ity o f Mononitr adverse 00:00: on, [place] ate reaction 00 likely Medical s from Branch severe LVH per Dr. Zamora. ISOSORBI DRUG Active Other-Cmnt Univ ers DE INGREDI 04-04 ity of MONONITR 00:00: [place] ATE 00 Medical Branch No Known DA Active U [facility] Allergie 4-10 [place] s 00:00: [address] Social History Social Habit Start Date Stop Date Quantity Comments Source Exposure to Yes University of SARS-CoV-2 [place] [facility] (event) Branch History SDOH University o f Alcohol Frequency [place] [facility] History SDOH University o f Alcohol Std [place] [facility] Drinks Branch History SDOH University o f Alcohol Binge [place] [facility] Alcohol intake 2021-07-22 2021-07-22 Ex-drinker [facility] 00:00:00 00:00:00 (finding) [facility] Alcohol Comment 2021-05-22 2021-05-22 1 cup of whiskey Uni versity of 00:00:00 00:00:00 but last dirnk [place] Medi jennifer in December Branch Education 2020-04-30 2020-04-30 13 University 00:00:00 00:00:00 [place] [facility] History [facility] 2019-08-22 2019-08-22 3 University o f Financial 00:00:00 00:00:00 [place] [facility] History [facility] Food 2019-08-22 2019-08-22 1 Univers ity of Worry 00:00:00 00:00:00 [place] [facility] History [facility] Food 2019-08-22 2019-08-22 1 Univers ity of Scarcity 00:00:00 00:00:00 [place] [facility] History [facility] 2019-08-22 2019-08-22 2 University o f Transport Med 00:00:00 00:00:00 [place] [facility] History [facility] 2019-08-22 2019-08-22 2 University o f Transport Non-Med 00:00:00 00:00:00 [facility] edical Branch Tobacco use and 2018-11-08 2018-11-08 Never used Universit y of exposure 00:00:00 00:00:00 [facility] Sex [birth year] At [birth year] Universit y of 00:00:00 00:00:00 [facility] Smoking Status Start Date Stop Date Source Never smoker [facility] Medications Ordered Filled Start Stop Current Ordering Indication Dosage Frequency Signature Comments Components Source Medication Medication Date Date Medication? Clinician (SIG) Name Name ondansetron 2020-08- No 4mg 4 mg, Univ ers (ZOFRAN-ODT 2-24 07- Oral, ity of ) 22:23: 22:25 ONCE, 1 [place] disintegrat 00 :00 dose, On Medi jennifer ing tablet Wed Branch 4 mg 07/24/ at 1630, Routine omeprazole 2020-08 Yes 40mg Take 40 mg U nivers 40 mg 2-22 by mouth ity of capsule 13:06: daily. [place] [address] Medical [place] omeprazole 2020-08 Yes 40mg Take 40 mg U nivers 40 mg 2-22 by mouth ity of capsule 13:06: daily. [place] [address] Medical Branch omeprazole 2020-08 Yes 40mg Take 40 mg U nivers 40 mg 2-22 by mouth ity of capsule 13:06: daily. [place] [address] Medical Branch omeprazole 2020-08 Yes 40mg Take 40 mg U nivers 40 mg 2-22 by mouth ity of capsule 13:06: daily. [address] Branch omeprazole 2020-08 Yes 40mg Take 40 mg U nivers 40 mg 2-22 by mouth ity of capsule 13:06: daily. [place] [address] Medical Branch cholecalcif 2020-08 Yes [id number] 1000U Take 1 Univers mika, 2-22 tablet by ity of vitamin D3, 00:00: mouth [place] 25 mcg 00 daily. Medical (1,000 Branch unit) tablet zinc 2020-08 Yes [id number] 220mg Take 1 Unive rs sulfate 50 2-22 capsule by ity of mg zinc 00:00: mouth [place] (220 mg) 00 daily. Medical capsule Branch cholecalcif 2020-08 Yes [id number] 1000U Take 1 Univers mika, 2-22 tablet by ity of vitamin D3, 00:00: mouth [place] 25 mcg 00 daily. Medical (1,000 Branch unit) tablet zinc 2020-08 Yes [id number] 220mg Take 1 Unive rs sulfate 50 2-22 capsule by ity of mg zinc 00:00: mouth [place] (220 mg) 00 daily. Medical capsule Branch cholecalcif 2020-08 Yes [id number] 1000U Take 1 Univers mika, 2-22 tablet by ity of vitamin D3, 00:00: mouth [place] 25 mcg 00 daily. Medical (1,000 Branch unit) tablet zinc 2020-08 Yes [id number] 220mg Take 1 Unive rs sulfate 50 2-22 capsule by ity of mg zinc 00:00: mouth [place] (220 mg) 00 daily. Medical capsule Branch cholecalcif 2020-08 Yes [id number] 1000U Take 1 Univers mika, 2-22 tablet by ity of vitamin D3, 00:00: mouth [place] 25 mcg 00 daily. Medical (1,000 Branch unit) tablet zinc 2020-08 Yes [id number] 220mg Take 1 Unive rs sulfate 50 2-22 capsule by ity of mg zinc 00:00: mouth [place] (220 mg) 00 daily. Medical capsule Branch cholecalcif 2020-08 Yes [id number] 1000U Take 1 Univers mika, 2-22 tablet by ity of vitamin D3, 00:00: mouth [place] 25 mcg 00 daily. Medical (1,000 Branch unit) tablet zinc 2020-08 Yes [id number] 220mg Take 1 Unive rs sulfate 50 2-22 capsule by ity of mg zinc 00:00: mouth [place] (220 mg) 00 daily. Medical capsule Branch Sliding 2020-08 Yes Subcutaneo Univ ers Scale 2-21 us, TID ity of Insulin - 23:00: MEALS+HS, [place] as Lispro 00 First dose Medical (HumaLOG) + on [facility] Fsbg 07/23/21 Testing at 1700, Until Discontinu ed, Routine zinc 2020-08 Yes 220mg 220 mg, Univers sulfate 2-21 Oral, ity of (ORAZINC) 15:00: DAILY, [place] capsule 220 00 First dose Me dical mg on [facility] 07/23/21 at 0900, Until Discontinu ed, Routine cholecalcif 2020-08 Yes 1000U 1,000 Univ ers mika 2-21 Units, ity of (vitamin 15:00: Oral, [place] D3) tablet 00 DAILY, Medical 1,000 Units First dose Br anch on [facility] 07/23/21 at 0900, Until Discontinu ed, Routine spironolact 2020-08 Yes 25mg 25 mg, Univ ers one 2-21 Oral, ity of (ALDACTONE) 15:00: DAILY, [place] tablet 25 00 First dose Medi jennifer mg on [facility] 07/23/21 at 0900, Until Discontinu ed, Routine omeprazole 2020-08 Yes 40mg 40 mg, Unive rs (PRILOSEC) 2-21 Oral, ity of capsule 40 15:00: DAILY, [place] mg 00 First dose Medical on [facility] 07/23/21 at 0900, Until Discontinu ed lisinopriL 2020-08 Yes 5mg 5 mg, Univer s (PRINIVIL,Z 2-21 Oral, ity of ESTRIL) 15:00: DAILY, [place] tablet 5 mg 00 First dose Me dical on [facility] 07/23/21 at 0900, Until Discontinu ed, Routine clopidogreL 2020-08 Yes 75mg 75 mg, Univ ers (PLAVIX) 2-21 Oral, ity of tablet 75 15:00: DAILY, [place] mg 00 First dose Medical on [facility] 07/23/21 at 0900, Until Discontinu ed, Routine aspirin EC 2020-08 Yes 81mg 81 mg, Unive rs tablet 81 2-21 Oral, ity of mg 15:00: DAILY, [place] 00 First dose Medical on [facility] 07/23/21 at 0900, Until Discontinu ed, Routine ascorbic 2020-08 Yes 500mg 500 mg, Unive rs acid 2-21 Oral, BID, ity of (vitamin C) 14:00: First dose [place] (VITAMIN C) 00 on [facility] l tablet 500 07/23/21 Branc h mg at 0800, Until Discontinu ed, Routine iohexol 2020-08- No [id number] 100mL 100 mL, U nivers (OMNIPAQUE 2-07-23 Intravenou it y of 350 12:45: 12:19 s, ONCE, 1 [place] BULK-100 00 :00 dose, On Medical mL) [facility] injection 07/23/21 100 mL at 0645, Routine atorvastati 2020-08 Yes 80mg 80 mg, Univ ers n (LIPITOR) 2-21 Oral, QHS, it y of tablet 80 03:00: First dose [place] mg 00 on [facility] 07/22/21 Branch at 2100, Until Discontinu ed, Routine hydrALAZINE 2020-08 Yes 100mg 100 mg, Un dino (APRESOLINE 2-21 Oral, BID, it y of ) tablet 02:00: First dose [place] as 100 mg 00 on [facility] 07/22/21 Branch at 2000, Until Discontinu ed, Routine furosemide 2020-08 Yes 40mg 40 mg, Unive rs (LASIX) 2-21 Slow IV ity of injection 02:00: Push, [place] 40 mg 00 Q12H, Medical First dose Branch on [facility] 07/22/21 at 2000, Until Discontinu ed, Routine bumetanide 2020-08 Yes [id number] 2mg Take 1 Un dino 2 mg tablet 2-21 tablet by ity of 00:00: mouth [place] 00 every Medical morning Branch and evening. ascorbic 2020-08 Yes [id number] 500mg Take 1 U nivers acid, 2-21 tablet by ity of vitamin C, 00:00: mouth 2 [place] 500 mg 00 (two) Medical tablet times Branch daily. albuterol-i 2020-08 Yes 1{puff} 1 Puff, Univers pratropium 2-21 Inhalation ity of (COMBIVENT 00:00: , Q6H, [place] RESPIMAT) 00 First dose Medi jennifer 20-100 on Mon Branch mcg/actuati 07/22/21 on inhaler at 1800, 1 Puff Until Discontinu ed, Routine
Is this order for a patient with suspected or confirmed COVID-19 infection? Yes bumetanide 2020-08 Yes [id number] 2mg Take 1 Un dino 2 mg tablet 2-21 tablet by ity of 00:00: mouth [place] 00 every Medical morning Branch and evening. ascorbic 2020-08 Yes [id number] 500mg Take 1 U nivers acid, 2-21 tablet by ity of vitamin C, 00:00: mouth 2 [place] 500 mg 00 (two) Medical tablet times Branch daily. bumetanide 2020-08 Yes [id number] 2mg Take 1 Un dino 2 mg tablet 2-21 tablet by ity of 00:00: mouth [place] 00 every Medical morning Branch and evening. ascorbic 2020-08 Yes [id number] 500mg Take 1 U nivers acid, 2-21 tablet by ity of vitamin C, 00:00: mouth 2 [place] 500 mg 00 (two) Medical tablet times Branch daily. bumetanide 2020-08 Yes [id number] 2mg Take 1 Un dino 2 mg tablet 2-21 tablet by ity of 00:00: mouth [place] 00 every Medical morning Branch and evening. ascorbic 2020-08 Yes [id number] 500mg Take 1 U nivers acid, 2-21 tablet by ity of vitamin C, 00:00: mouth 2 [place] 500 mg 00 (two) Medical tablet times Branch daily. bumetanide 2020-08 Yes [id number] 2mg Take 1 Un dino 2 mg tablet 2-21 tablet by ity of 00:00: mouth [place] 00 every Medical morning Branch and evening. ascorbic 2020-08 Yes [id number] 500mg Take 1 U nivers acid, 2-21 tablet by ity of vitamin C, 00:00: mouth 2 [place] 500 mg 00 (two) Medical tablet times Branch daily. acetaminoph 2020-08- Yes [id number] 650mg Take 2 Univers en 325 mg 2-21 12-22 tablets by ity of tablet 00:00: 05:59 mouth [place] 00 :00 every 6 Medical (six) Branch hours as needed for Pain (scale 1-3) or Temp > 38.5 C. acetaminoph 2020-08- Yes [id number] 650mg Take 2 Univers en 325 mg 2-21 12-22 tablets by ity of tablet 00:00: 05:59 mouth [place] 00 :00 every 6 Medical (six) Branch hours as needed for Pain (scale 1-3) or Temp > 38.5 C. acetaminoph 2020-08- Yes [id number] 650mg Take 2 Univers en 325 mg 2-21 12-22 tablets by ity of tablet 00:00: 05:59 mouth [place] 00 :00 every 6 Medical (six) Branch hours as needed for Pain (scale 1-3) or Temp > 38.5 C. acetaminoph 2020-08- Yes [id number] 650mg Take 2 Univers en 325 mg 2-21 12-22 tablets by ity of tablet 00:00: 05:59 mouth [place] 00 :00 every 6 Medical (six) Branch hours as needed for Pain (scale 1-3) or Temp > 38.5 C. acetaminoph 2020-08- Yes [id number] 650mg Take 2 Univers en 325 mg 2-21 12-22 tablets by ity of tablet 00:00: 05:59 mouth [place] 00 :00 every 6 Medical (six) Branch hours as needed for Pain (scale 1-3) or Temp > 38.5 C. codeine-gua 2020-08- Yes [id number] 10mL Take 10 mL Univers ifenesin -23 07- by mouth ity of 10-100 mg/5 00:00: 05:59 every 6 [place] mL oral 00 :00 (six) Medical solution hours as Branch needed for Cough for up to 7 days. Indication s: acute pain codeine-gua 2020-08- Yes [id number] 10mL Take 10 mL Univers ifenesin 2-21 12-29 by mouth ity of 10-100 mg/5 00:00: 05:59 every 6 [place] mL oral 00 :00 (six) Medical solution hours as Branch needed for Cough for up to 7 days. Indication s: acute pain codeine-gua 2020-08- Yes [id number] 10mL Take 10 mL Univers ifenesin 2-21 12-29 by mouth ity of 10-100 mg/5 00:00: 05:59 every 6 [place] mL oral 00 :00 (six) Medical solution hours as Branch needed for Cough for up to 7 days. Indication s: acute pain codeine-gua 2020-08- Yes [id number] 10mL Take 10 mL Univers ifenesin 2-21 12-29 by mouth ity of 10-100 mg/5 00:00: 05:59 every 6 [place] mL oral 00 :00 (six) Medical solution hours as Branch needed for Cough for up to 7 days. Indication s: acute pain codeine-gua 2020-08- Yes [id number] 10mL Take 10 mL Univers ifenesin 2-23 07-29 by mouth ity of 10-100 mg/5 00:00: 05:59 every 6 [place] mL oral 00 :00 (six) Medical solution hours as Branch needed for Cough for up to 7 days. Indication s: acute pain HYDROcodone 2020-08- Yes [id number] 1{tbl} Take 1 U nivers -acetaminop 2-21 12-27 tablet by it y of hen 5-325 00:00: 05:59 mouth [place] mg tablet 00 :00 every 6 Medical (six) Branch hours as needed for Pain (scale 4-6) for up to 5 days. Indication s: acute pain HYDROcodone 2020-08- Yes [id number] 1{tbl} Take 1 U nivers -acetaminop 2-21 12-27 tablet by it y of hen 5-325 00:00: 05:59 mouth [place] mg tablet 00 :00 every 6 Medical (six) Branch hours as needed for Pain (scale 4-6) for up to 5 days. Indication s: acute pain HYDROcodone 2020-08- Yes [id number] 1{tbl} Take 1 U nivers -acetaminop 2-21 12-27 tablet by it y of hen 5-325 00:00: 05:59 mouth [place] mg tablet 00 :00 every 6 Medical (six) Branch hours as needed for Pain (scale 4-6) for up to 5 days. Indication s: acute pain HYDROcodone 2020-08- Yes [id number] 1{tbl} Take 1 U nivers -acetaminop 2-21 12-27 tablet by it y of hen 5-325 00:00: 05:59 mouth [place] mg tablet 00 :00 every 6 Medical (six) Branch hours as needed for Pain (scale 4-6) for up to 5 days. Indication s: acute pain HYDROcodone 2020-08- Yes [id number] 1{tbl} Take 1 U nivers -acetaminop 2-21 12-27 tablet by it y of hen 5-325 00:00: 05:59 mouth [place] mg tablet 00 :00 every 6 Medical (six) Branch hours as needed for Pain (scale 4-6) for up to 5 days. Indication s: acute pain enoxaparin 2020-08 Yes 40mg 40 mg, Unive rs (LOVENOX) 2-20 Subcutaneo ity of injection 23:00: us, DAILY, [place] 40 mg 00 First dose Medical on Thu Branch 07/22/21 at 1700, Until Discontinu ed, Routine carvediloL 2020-08 Yes 50mg 50 mg, Unive rs (COREG) 2-20 Oral, BID ity of tablet 50 23:00: MEALS, [place] mg 00 First dose Medical on Thu Branch 07/22/21 at 1700, Until Discontinu ed, Routine glipiZIDE 2020-08 Yes 5mg 5 mg, Univers (GLUCOTROL) 2-20 Oral, ity of tablet 5 mg 22:30: BIDAC, [place] 00 First dose Medical on Thu Branch 07/22/21 at 1630, Until Discontinu ed, Routine codeine-gua 2020-08 Yes 10mL 10 mL, Univ ers ifenesin 2-20 Oral, ity of (ROBITUSSIN 20:43: Q6HPRN, [place] as AC) 10-100 54 Starting Medic al mg/5 mL on Thu Branch oral 07/22/21 solution 10 at 1443, mL Until Discontinu ed, Routine, Cough ondansetron 2020-08 Yes 4mg 4 mg, Slow Univers (ZOFRAN 2-20 IV Push, ity of (PF)) 20:42: Q6HPRN, [place] injection 4 01 Starting Medi jennifer mg on Thu Branch 07/22/21 at 1442, Until Discontinu ed, Routine, Nausea and Vomiting (N/V) morpHINE 2020-08- No 4mg 4 mg, Slow Un dino injection 4 09-22 IV Push, ity of mg 20:41: 20:40 Q4HPRN, [place] 58 :58 Starting Medical on Thu Branch 07/22/21 at 1441, Until Thu07/23/21 at 1440, Routine, Pain (scale 7-10) HYDROcodone 2020-08- Yes 1{tbl} 1 tablet, Univers -acetaminop 09-22 Oral, ity of hen (NORCO 20:41: 20:40 Q6HPRN, [place] as 5) 5-325 mg 56 :56 Starting Medi jennifer tablet 1 on Thu tablet 07/22/21 at 1441, Until Thu07/24/21 at 1440, Routine, Pain (scale 4-6) acetaminoph 2020-08 Yes 650mg 650 mg, Un dino en 2 Oral, ity of (TYLENOL) 20:41: Q6HPRN, [place] tablet 650 42 Starting Medic al mg on Thu Branch 07/22/21 at 1441, Until Discontinu ed, Routine, Pain (scale 1-3), Temp > 38.5 C labetaloL 2020-08 Yes 10mg 10 mg, Univer s (NORMODYNE) 2-20 Slow IV ity o f injection 20:39: Push, [place] 10 mg 52 Q4HPRN, Medical Starting Branch on Thu07/22/21 at 1439, Until Discontinu ed, Routine, SBP > 180 or DBP > 100 nitroglycer 2020-08 Yes .4mg 0.4 mg, Uni vers in 2-20 Sublingual ity of (NITROSTAT) 20:38: , Q5MIN [place] as sublingual 50 PRN, Medical tablet 0.4 Starting Branc h mg on Thu07/22/21 at 1438, Until Discontinu ed, Routine, Chest pain furosemide 2020-08- No 40mg 40 mg, IV U nivers (LASIX) 2-20 12-20 Push, ity of injection 20:00: 19:00 ONCE, 1 [place] 40 mg 00 :00 dose, On Medical Mon Branch 07/22/21 at 1400, MJ iopamidol 2020-08- No [id number] 200mL 200 mL, Univers (ISOVUE 09-22 Intravenou ity o f 370-500 mL) 19:45: 18:28 s, ONCE, 1 [place] injection 00 :00 dose, On Medica l 200 mL [facility] Branch 07/22/21 at 1345, Routine aspirin 2020-08- No 325mg 325 mg, Unive rs E.C. 09-22 Oral, ity of (ECOTRIN) 18:45: 17:50 ONCE, 1 [place] tablet 325 00 :00 dose, On Medic al mg [facility] 07/22/21 at 1245, STAT omeprazole 2020-08 Yes 40mg Take 40 mg U nivers 40 mg 2-20 by mouth ity of capsule 14:45: daily. [address] omeprazole 2020-08 Yes 40mg Take 40 mg U nivers 40 mg 2-14 by mouth ity of capsule 10:25: daily. [address] hydrALAZINE 2020-08 Yes [id number] 100mg Take 1 Univers 100 mg 2-14 tablet by ity of tablet 00:00: mouth [place] (two) Medical times Branch daily. hydrALAZINE 2020-08 Yes [id number] 100mg Take 1 Univers 100 mg 2-14 tablet by ity of tablet 00:00: mouth [place] (two) Medical times Branch daily. hydrALAZINE 2020-08 Yes [id number] 100mg Take 1 Univers 100 mg 2-14 tablet by ity of tablet 00:00: mouth [place] (two) Medical times Branch daily. hydrALAZINE 2020-08 Yes [id number] 100mg Take 1 Univers 100 mg 2-14 tablet by ity of tablet 00:00: mouth [place] (two) Medical times Branch daily. hydrALAZINE 2020-08 Yes [id number] 100mg Take 1 Univers 100 mg 2-14 tablet by ity of tablet 00:00: mouth [place] (two) Medical times Branch daily. hydrALAZINE 2020-08 Yes [id number] 100mg Take 1 Univers 100 mg 2-14 tablet by ity of tablet 00:00: mouth 2 00 (two) Medical times Branch daily. hydrALAZINE 2020-08 Yes [id number] 100mg Take 1 Univers 100 mg 2-14 tablet by ity of tablet 00:00: mouth 2 00 (two) Medical times Branch daily. lisinopriL 2020-08 Yes Univers 5 mg tablet 2-08 ity of 00:00: [place] 00 Medical Branch atorvastati 2020-08 Yes Univer s n 10 mg 2-08 ity of tablet 00:00: [place] 00 Medical Branch furosemide 2020-08 Yes Univers 40 mg 2-08 ity of tablet 00:00: [place] [facility] lisinopriL 2020-08 Yes Univers 5 mg tablet 2-08 ity of 00:00: [place] [facility] lisinopriL 2020-08 Yes Univers 5 mg tablet 2-08 ity of 00:00: [place] [facility] lisinopriL 2020-08 Yes Univers 5 mg tablet 2-08 ity of 00:00: [place] [facility] lisinopriL 2020-08 Yes Univers 5 mg tablet 2-08 ity of 00:00: [place] 00 Medical Branch lisinopriL 2020-08 Yes Univers 5 mg tablet 2-08 ity of 00:00: [place] 00 Medical Branch lisinopriL 2020-08 Yes Univers 5 mg tablet 2-08 ity of 00:00: [place] 00 Medical Branch atorvastati 2020-08- No Unive rs n 10 mg 2-08 12-20 ity of tablet 00:00: 00:00 [place] 00 :00 Medical Branch furosemide 2020-08- No Univer s 40 mg 2-08 12-20 ity of tablet 00:00: 00:00 [place] 00 :00 Medical Branch bumetanide 2020-08- Yes [id number] 2mg Take 1 U nivers 2 mg tablet 09-03 tablet by it y of 00:00: 05:59 mouth [place] 00 :00 every Medical morning Branch and evening for 30 days. bumetanide 2020-08- Yes [id number] 2mg Take 1 U nivers 2 mg tablet 09-03 tablet by it y of 00:00: 05:59 mouth [place] 00 :00 every Medical morning Branch and evening for 30 days. bumetanide 2020-08- No [id number] 2mg Take 1 U nivers 2 mg tablet 09-03 tablet by it y of 00:00: 00:00 mouth [place] 00 :00 every Medical morning Branch and evening for 30 days. GLIPIZIDE 5 2020-08 Yes [id number] 5mg TAKE 1 Univers mg tablet 1-29 TABLET BY ity o f 00:00: MOUTH ([facility]) Medical TIMES Branch DAILY BEFORE BREAKFAST AND DINNER. spironolact 2020-08 Yes Univer s one 25 mg 1-29 ity of tablet 00:00: Medical Branch GLIPIZIDE 5 2020-08 Yes [id number] 5mg TAKE 1 Univers mg tablet 1-29 TABLET BY ity o f 00:00: MOUTH [place] ([facility]) Medical TIMES Branch DAILY BEFORE BREAKFAST AND DINNER. spironolact 2020-08 Yes Univer s one 25 mg 1-29 ity of tablet 00:00: Medical Branch GLIPIZIDE 5 2020-08 Yes [id number] 5mg TAKE 1 Univers mg tablet 1-29 TABLET BY ity o f 00:00: MOUTH [place] ([facility]) Medical TIMES [place] DAILY BEFORE BREAKFAST AND DINNER. spironolact 2020-08 Yes Univer s one 25 mg 1-29 ity of tablet 00:00: Medical Branch GLIPIZIDE 5 2020-08 Yes [id number] 5mg TAKE 1 Univers mg tablet 1-29 TABLET BY ity o f 00:00: MOUTH [place] ([facility]) Medical TIMES Branch DAILY BEFORE BREAKFAST AND DINNER. spironolact 2020-08 Yes Univer s one 25 mg 1-29 ity of tablet 00:00: Medical Branch GLIPIZIDE 5 2020-08 Yes [id number] 5mg TAKE 1 Univers mg tablet 1-29 TABLET BY ity o f 00:00: MOUTH [place] ([facility]) Medical TIMES Branch DAILY BEFORE BREAKFAST AND DINNER. spironolact 2020-08 Yes Univer s one 25 mg 1-29 ity of tablet 00:00: Medical Branch GLIPIZIDE 5 2020-08 Yes [id number] 5mg TAKE 1 Univers mg tablet 1-29 TABLET BY ity o f 00:00: MOUTH 2 (TWO) Medical TIMES Branch DAILY BEFORE BREAKFAST AND DINNER. spironolact 2020-08 Yes Univer s one 25 mg 1-29 ity of tablet 00:00: [place] 00 Medical Branch GLIPIZIDE 5 2020-08 Yes [id number] 5mg TAKE 1 Univers mg tablet 1-29 TABLET BY ity o f 00:00: MOUTH 2 (TWO) Medical TIMES Branch DAILY BEFORE BREAKFAST AND DINNER. spironolact 2020-08 Yes Univer s one 25 mg 1-29 ity of tablet 00:00: [place] 00 Medical Branch carvediloL 2020-08 Yes [id number] 50mg Take 2 Univers 25 mg 0-22 tablets by ity of tablet 00:00: mouth 2 (two) Medical times Branch daily with meals. clopidogreL 2020-08 Yes [id number] 75mg Take 1 Univers 75 mg 0-22 tablet by ity of tablet 00:00: mouth 00 daily. Medical Branch atorvastati 2020-08 Yes [id number] 80mg Take 1 Univers n 80 mg 0-22 tablet by ity of tablet 00:00: mouth at [place] 00 bedtime. Medical Branch carvediloL 2020-08 Yes [id number] 50mg Take 2 Univers 25 mg 0-22 tablets by ity of tablet 00:00: mouth 2 (two) Medical times Branch daily with meals. clopidogreL 2020-08 Yes [id number] 75mg Take 1 Univers 75 mg 0-22 tablet by ity of tablet 00:00: mouth 00 daily. Medical Branch atorvastati 2020-08 Yes [id number] 80mg Take 1 Univers n 80 mg 0-22 tablet by ity of tablet 00:00: mouth at [place] 00 bedtime. Medical Branch carvediloL 2020-08 Yes [id number] 50mg Take 2 Univers 25 mg 0-22 tablets by ity of tablet 00:00: mouth 2 (two) Medical times Branch daily with meals. clopidogreL 2020-08 Yes [id number] 75mg Take 1 Univers 75 mg 0-22 tablet by ity of tablet 00:00: mouth [place] 00 daily. Medical Branch atorvastati 2020-08 Yes [id number] 80mg Take 1 Univers n 80 mg 0-22 tablet by ity of tablet 00:00: mouth at [place] 00 bedtime. Medical Branch carvediloL 2020-08 Yes [id number] 50mg Take 2 Univers 25 mg 0-22 tablets by ity of tablet 00:00: mouth 2 (two) Medical times Branch daily with meals. clopidogreL 2020-08 Yes [id number] 75mg Take 1 Univers 75 mg 0-22 tablet by ity of tablet 00:00: mouth [place] 00 daily. Medical Branch atorvastati 2020-08 Yes [id number] 80mg Take 1 Univers n 80 mg 0-22 tablet by ity of tablet 00:00: mouth at [place] 00 bedtime. Medical Branch carvediloL 2020-08 Yes [id number] 50mg Take 2 Univers 25 mg 0-22 tablets by ity of tablet 00:00: mouth 2 (two) Medical times Branch daily with meals. clopidogreL 2020-08 Yes [id number] 75mg Take 1 Univers 75 mg 0-22 tablet by ity of tablet 00:00: mouth 00 daily. Medical Branch atorvastati 2020-08 Yes [id number] 80mg Take 1 Univers n 80 mg 0-22 tablet by ity of tablet 00:00: mouth at [place] 00 bedtime. Medical Branch carvediloL 2020-08 Yes [id number] 50mg Take 2 Univers 25 mg 0-22 tablets by ity of tablet 00:00: mouth 2 (two) Medical times Branch daily with meals. clopidogreL 2020-08 Yes [id number] 75mg Take 1 Univers 75 mg 0-22 tablet by ity of tablet 00:00: mouth 00 daily. Medical Branch atorvastati 2020-08 Yes [id number] 80mg Take 1 Univers n 80 mg 0-22 tablet by ity of tablet 00:00: mouth at [place] 00 bedtime. Medical Branch carvediloL 2020-08 Yes [id number] 50mg Take 2 Univers 25 mg 0-22 tablets by ity of tablet 00:00: mouth 2 (two) Medical times Branch daily with meals. clopidogreL 2020-08 Yes [id number] 75mg Take 1 Univers 75 mg 0-22 tablet by ity of tablet 00:00: mouth 00 daily. Medical Branch atorvastati 2020-08 Yes [id number] 80mg Take 1 Univers n 80 mg 0-22 tablet by ity of tablet 00:00: mouth at [place] 00 bedtime. Medical Branch aspirin 81 2020-0 Yes [id number] 81mg Take 1 U nivers mg EC 9-08 tablet by ity of tablet 00:00: mouth [place] 00 daily. Medical Branch aspirin 81 2020-0 Yes [id number] 81mg Take 1 U nivers mg EC 9-08 tablet by ity of tablet 00:00: mouth [place] 00 daily. Medical Branch aspirin 81 2020-0 Yes [id number] 81mg Take 1 U nivers mg EC 9-08 tablet by ity of tablet 00:00: mouth [place] 00 daily. Medical Branch aspirin 81 2020-0 Yes [id number] 81mg Take 1 U nivers mg EC 9-08 tablet by ity of tablet 00:00: mouth [place] 00 daily. Medical Branch aspirin 81 2020-0 Yes [id number] 81mg Take 1 U nivers mg EC 9-08 tablet by ity of tablet 00:00: mouth [place] 00 daily. Medical Branch aspirin 81 2020-0 Yes [id number] 81mg Take 1 U nivers mg EC 9-08 tablet by ity of tablet 00:00: mouth [place] 00 daily. Medical Branch aspirin 81 2020-0 Yes [id number] 81mg Take 1 U nivers mg EC 9-08 tablet by ity of tablet 00:00: mouth [place] 00 daily. Medical Branch nitroglycer 2020-[id number] 1 Univers in 0.4 mg 5-28 tablet ity of sublingual 00:00: under the [place] tablet 00 tongue Medical every 5 Branch (five) minutes as needed for Chest pain. nitroglycer 2020-[id number] 1 Univers in 0.4 mg 5-28 tablet ity of sublingual 00:00: under the [place] tablet 00 tongue Medical every 5 Branch (five) minutes as needed for Chest pain. nitroglycer 2020-[id number] 1 Univers in 0.4 mg 5-28 tablet ity of sublingual 00:00: under the [place] tablet 00 tongue Medical every 5 Branch (five) minutes as needed for Chest pain. nitroglycer 2020-[id number] 1 Univers in 0.4 mg 5-28 tablet ity of sublingual 00:00: under the [place] tablet 00 tongue Medical every 5 Branch (five) minutes as needed for Chest pain. nitroglycer 2020-[id number] 1 Univers in 0.4 mg 5-28 tablet ity of sublingual 00:00: under the [place] tablet 00 tongue Medical every 5 Branch (five) minutes as needed for Chest pain. nitroglycer 2020-[id number] 1 Univers in 0.4 mg 5-28 tablet ity of sublingual 00:00: under the [place] tablet 00 tongue Medical every 5 Branch (five) minutes as needed for Chest pain. nitroglycer 2020-[id number] 1 Univers in 0.4 mg 5-28 tablet ity of sublingual 00:00: under the [place] tablet 00 tongue Medical every 5 Branch (five) minutes as needed for Chest pain. Immunizations Ordered Filled Immunization Date Status Comments [facility] e Immunization Name Name Influenza Virus 2020-09-24 Completed Universit y of Vaccine Quad .5 mL 00:00:00 [place] Medical IM 6+ MO Branch Influenza Virus 2020-09-24 Completed Universit y of Vaccine Quad .5 mL 00:00:00 [place] Medical IM 6+ MO Branch Influenza Virus 2020-09-24 Completed Universit y of Vaccine Quad .5 mL 00:00:00 [place] Medical IM 6+ MO Branch Influenza Virus 2020-09-24 Completed Universit y of Vaccine Quad .5 mL 00:00:00 [place] Medical IM 6+ MO Branch Influenza Virus 2020-09-24 Completed Universit y of Vaccine Quad .5 mL 00:00:00 [place] Medical IM 6+ MO Branch Influenza Virus 2020-09-24 Completed Universit y of Vaccine Quad .5 mL 00:00:00 [place] Medical IM 6+ MO Branch Influenza Virus 2020-09-24 Completed Universit y of Vaccine Quad .5 mL 00:00:00 [place] Medical IM 6+ MO Branch Influenza Virus 2020-05-03 Completed Universit y of Vaccine Quad .5 mL 00:00:00 [place] Medical IM 6+ MO Branch Influenza Virus 2020-05-03 Completed Universit y of Vaccine Quad .5 mL 00:00:00 [place] Medical IM 6+ MO Branch Influenza Virus 2020-05-03 Completed Universit y of Vaccine Quad .5 mL 00:00:00 [place] Medical IM 6+ MO Branch Influenza Virus [...] y of Vaccine Quad .5 mL 00:00:00 [place] Medical IM 6+ MO Branch Influenza Virus 2018-07-07 Completed Universit y of Vaccine Quad IM 3+ 00:00:00 [facility] Influenza Virus 2018-07-07 Completed Universit y of Vaccine Quad IM 3+ 00:00:00 [facility] Influenza Virus 2018-07-07 Completed Universit y of Vaccine Quad IM 3+ 00:00:00 [facility] Influenza Virus 2018-07-07 Completed Universit y of Vaccine Quad IM 3+ 00:00:00 [facility] Influenza Virus 2018-07-07 Completed Universit y of Vaccine Quad IM 3+ 00:00:00 [facility] Influenza Virus 2018-07-07 Completed Universit y of Vaccine Quad IM 3+ 00:00:00 [facility] Influenza Virus 2018-07-07 Completed Universit y of Vaccine Quad IM 3+ 00:00:00 [facility] Td 2017-08-01 Completed University of 00:00:00 [facility] Td 2017-08-01 Completed University of 00:00:00 [facility] Td 2017-08-01 Completed University of 00:00:00 [facility] Td 2017-08-01 Completed University of 00:00:00 [facility] Td 2017-08-01 Completed University of 00:00:00 [facility] Td 2017-08-01 Completed University of 00:00:00 [facility] Td 2017-08-01 Completed University of 00:00:00 [facility] Influenza Virus 2016-05-22 Completed Universit y of Vaccine Quad IM 3+ 00:00:00 [facility] Influenza Virus 2016-05-22 Completed Universit y of Vaccine Quad IM 3+ 00:00:00 [facility] Influenza Virus 2016-05-22 Completed Universit y of Vaccine Quad IM 3+ 00:00:00 [facility] Influenza Virus 2016-05-22 Completed Universit y of Vaccine Quad IM 3+ 00:00:00 [facility] Influenza Virus 2016-05-22 Completed Universit y of Vaccine Quad IM 3+ 00:00:00 [facility] Influenza Virus 2016-05-22 Completed Universit y of Vaccine Quad IM 3+ 00:00:00 [facility] Influenza Virus 2016-05-22 Completed Universit y of Vaccine Quad IM 3+ 00:00:00 [facility] Pneumococcal 2015-08-31 Completed University o f Polysaccharide, 00:00:00 [place] Med ical PPSV23 (PNEUMOVAX) Branch Pneumococcal 2015-08-31 [...] 00:00:00 [place] Med ical PPSV23 (PNEUMOVAX) Branch Influenza Virus [...] Universit y of Vaccine Quad IM 00:00:00 [place] Med ical Multi-dose 6+ MO Branch Vital Signs Vital Name Observation Time Observation Value Comments Source Systolic blood 2021-07-24 22:08:00 112 mm[Hg] Univer sity of pressure [facility] Diastolic blood 2021-07-24 22:08:00 78 mm[Hg] Unive rsity of pressure [facility] Heart rate 2021-07-24 22:08:00 75 /min [facility] Body temperature 2021-07-24 22:08:00 37.56 Sara [facility] rate 2021-07-24 22:08:00 22 /min [facility] Body height 2021-07-24 22:08:00 188 cm [facility] Body weight 2021-07-24 22:08:00 144.697 kg [facility] BMI 2021-07-24 22:08:00 40.96 kg/m2 [facility] Oxygen saturation in 2021-07-24 22:08:00 100 /min [facility] Arterial blood by [facility] Pulse oximetry Branch Heart rate 2021-07-24 18:13:00 70 /min [facility] Respiratory rate 2021-07-24 18:13:00 18 /min [facility] Oxygen saturation in 2021-07-24 18:13:00 97 /min [facility] Arterial blood by [facility] Pulse oximetry [place] Body weight 2021-07-24 17:00:00 144.97 kg [facility] BMI 2021-07-24 17:00:00 41.03 kg/m2 [facility] Systolic blood 2021-07-24 14:09:00 121 mm[Hg[facility] 2021-07-24 14:09:00 76 mm[Hg] [facility] Body temperature 2021-07-24 13:31:00 36.28 Sara [facility] Body height 2021-07-22 20:07:00 188 cm [facility] Procedures Procedure Date / Time Performing Clinician Source Performed POCT GLUCOSE (AUTOMATED) 2021-07-24 13:33:[address] [facility] MAGNESIUM 2021-07-24 10:24:[address] [facility] TROPONIN I 2021-07-24 10:24:00 [facility]OLIC PANEL 2021-07-24 10:24:[address] [facility] (NA, K, CL, CO2, [facility] GLUCOSE, BUN, CREATININE, CA) CBC WITH DIFF 2021-07-24 10:24:[address] [facility] N-TERMINAL PRO-BNP 2021-07-24 10:24:00 Sade Weiss [facility] POCT GLUCOSE (AUTOMATED) 2021-07-24 02:13:[address] [facility] POCT GLUCOSE (AUTOMATED) 2021-07-23 23:22:[address] [facility] CT ANGIOGRAM CHEST 2021-07-23 12:31:00 Gregory Banda [facility] MAGNESIUM 2021-07-23 11:12:00 [facility] I 2021-07-23 11:12:00 [facility] BASIC METABOLIC PANEL 2021-07-23 11:12:00 Isela [facility] (NA, K, CL, CO2, Medical Branch GLUCOSE, BUN, CREATININE, CA) CBC WITH DIFF 2021-07-23 11:12:[facility]MIN[facility] 2021-07-23 11:12[facility]SE 2021-07-23 06:30:00 Gregory Banda [facility] FERRITIN SERUM 2021-07-23 06:30:00 Solo [facility] D-DIMER 2021-07-23 06:30:00 Solo [facility] TROPONIN I 2021-07-23 06:00:00 Isela [facility] [place] [facility] TROPONIN I 2021-07-22 23:42:00 Isela [facility] [place] [facility] URINE DRUG (IMMUNOASSAY) 2021-07-22 18:40:00 Karine Montez [facility] SCREEN CT STROKE ANGIOGRAM HEAD 2021-07-22 18:36:[address] [facility] CT STROKE ANGIOGRAM NECK 2021-07-22 18:36:[address] [facility] CT HEAD WO CONTRAST 2021-07-22 18:35:27 Mary Walsh [facility] XR CHEST 1 VW 2021-07-22 18:17:18 Karine Montez [facility] MAGNESIUM 2021-07-22 17:49:00 Mary Walsh [facility] TROPONIN I 2021-07-22 17:49:00 Karine Montez [facility] COMP. METABOLIC PANEL 2021-07-22 17:49:00 Karine Montez [facility] ([id number]) [facility] CBC WITH DIFF 2021-07-22 17:49:00 Karine Montez [facility] N-TERMINAL PRO-BNP 2021-07-22 17:49:00 [facility] COVID-19 (ID NOW RAPID 2021-07-22 17:49:00 [facility] 2021-07-22 17:38:59 Sade Weiss o f [facility] [id number] 2021-03-01 00:00:00 GAHAM [facility] [id number] 2021-03-01 00:00:00 GAHAM [facility] [id number] 2021-01-03 00:00:00 MADSA [facility] [id number] 2020-12-04 00:00:00 [facility] [id number] 2020-12-04 00:00:00 [facility] Encounters Start End Encounter Admission Attending Care Care Encounter Source Date/Time Date/Time Type Type Clinicians Facility Department ID 2020-11-29 Inpatient HCACR PAOLA [id number] [facility] 15:07:00 [id number] [facility] 2020-11-29 Inpatient HCAPM PAOL[facility] [id number] [facility] 09:29:00 [id number] [facility] 2021-07-27 2021-07-27 Nurse Doris Christensen [id number] Univers 00:00:00 00:00:00 Triage KYLE [id number] it y of HOSPITAL 4.2.7.2.686 [place] as [id number] [facility] 019 Branch 2021-07-25 2021-07-25 Transition SRIDHAR Seth [id number] Univers 00:00:00 00:00:00 of Care Heavenly B VEGA [id number] it y [place] [id number] [facility] 403 Branch 2021-07-25 2021-07-25 Telephone BERTHA Jones [id number] Univers 00:00:00 00:00:00 Rochelle TSANG [id number] ity of [facility] [id number] [id number] Va dical NAL 044 [facility] 2021-07-24 2021-07-24 Emergency X WATTS [facility] ERT [id number] Univers 16:12:00 16:59:00 ANTHONY ity of [facility] 2021-07-24 2021-07-24 Emergency [facility] [id number] Univers 16:12:00 16:59:00 Anthony TRINH 350.1.13.10 i ty of [place] [id number] [facility] 084 [place] 2021-07-22 2021-07-24 Outpatient X ISELA [facility] [id number] Univers 11:38:00 13:01:00 SADE ity of [facility] 2021-07-22 2021-07-24 Emergency Karine Montez [facility] 1.2. [id number] [id number] Univers 11:38:00 13:01:00 Sade Weiss 350.1.13.10 ity of [id number] [id number] [facility] 080 [place] 2021-07-22 2021-07-22 [facility]phone [facility] [id number] Univers 00:00:00 00:00:00 Rochelle TSANG [id number] ity of [facility] [id number] [id number] Va dical NAL 044 [facility] 2021-07-19 2021-07-19 Telephone Iturrizsan [facility]- UNIVERSIT 1.2.840.11 [id number] Univers 00:00:00 00:00:00 Blaise Ma 350.1.13.10 ity of [facility] [place] [id number] [facility] 414 Branch 2021-02-28 2021-03-01 [facility] [id number] 16:19:00 15:10:00 [facility] [id number] [facility] 2021-02-28 2021-02-28 Outpatient ARCHIE Juan LABO [id number] [facility] 08:44:00 08:44:00 [facility] [id number] [facility] 2021-02-27 2021-02-27 Inpatient EM EVER JuanPM INTE.02 [id number] [facility] 12:18:00 12:17:00 [facility] [id number] [facility] 2021-02-27 2021-02-27 Transition Sridhar Seth 1.2.840.114 [id number] 00:00:00 00:00:00 of Care Heavenly Estevezy 350.1.13.10 [place] 4.2.7.2.686 [id number] 2021-02-26 2021-02-26 Transition Sridhar Seth 1.2.840.114 [id number] 00:00:00 00:00:00 of Care Heavenly Vega 350.1.13.10 [place] 4.2.7.2.686 [id number] 2021-02-25 2021-02-25 [facility] 1.2.840.114 [id number] 00:00:00 00:00:00 Ayush Tsang 350.1.13.10 [place] 4.2.7.2.686 Professio [id number] [facility] [address] [place] [address] 2021-02-22 2021-02-24 Emergency [facility] [id number] 20:27:00 15:41:00 Doris Tsang 350.1.13.10 [place] 4.2.7.2.686 [place] [id number] [facility] 2021-02-13 2021-02-13 Patient Artemio [facility] 1.2.840.114 [id number] 00:00:00 00:00:00 Outreach Nikole Wandy Tsang 350.1.13.10 [place] 4.2.7.2.686 Professio [id number] [facility] 231 [facility] 2021-02-04 2021-02-06 Inpatient EM Kathia, HCACL INTE.02 [id number] [facility] 20:15:00 16:26:00 Precious [id number] [facility] 2021-02-04 2021-02-04 Emergency EM Nasim, HCAPM PAOLA [id number] [facility] 12:54:00 19:20:00 [facility] [id number] [facility] 2021-01-03 2021-01-07 Inpatient EM Tyler, HCAPM INTE.02 [id number] [facility] 15:04:00 14:00:00 [facility] [id number] Anna an [facility] 2021-01-03 2021-01-03 Outpatient [place], HCACL LABO [id number] [facility] 21:53:00 21:53:00 [facility] [id number] [facility] 2020-11-30 2020-12-05 Inpatient EM Elisha, HCACR TELE [id number] [facility] 16:20:00 11:58:00 Benoit [id number] [facility] 2020-05-29 2020-06-02 Inpatient E JOSÉ [id number] 05:06:00 14:30:00 [facility] Results Test Description Test Time Test Comments Results Result Comments Source POCT GLUCOSE (AUTOMATED) 2021-07-24 13:37:52 Test Item Value Reference Range Interpretation Comme nts POCT GLU (test code = 7746208315) 98 mg/dL 70-110 Lab Interpretation (test code = 42679-1) Normal [facility] [id number] 12:07:00 Test Item Value Reference Interpretation Comments Range TROPONIN I (test 0.067 ng/mL See_Comment H [Automated code = 5564751310) message] The system which generated this result transmitted reference range : <=0.034. The reference range was not used to interpret this result as normal/abnormal . JACOB (test code = Reference (Normal) JACOB) Range (defined by the 99th percentile reference limit): <= 0.034 ng/mL Note: Cardiac troponin begins to rise 3-4 hours after the onset of ischemia. Repeat in 4-6 hours if the sample was drawn within 3-4 hours of the onset of the symptom and found normal. Diagnosis of myocardial injury is made with acute changes in cTn concentrations with at least one serial sample above the 99th percentile upper reference limit (URL), taken together with the patient's clinical presentation. Biotin has been reported to cause a negative bias, interpret results relative to patient's use of biotin. Lab Interpretation Abnormal (test code = 41541-2) [id number] 12:03:59 Test Item Value Reference Range Interpretation Comments NT-proBNP (test code 1680 pg/mL See_Comment H [Autom ated = [id number]) message] The system which generated this result transmitted reference range : <=125. The reference range was not used to interpret this result as normal/abnormal . JACOB (test code = JACOB) Biotin has been reported to cause a negative bias, interpret results relative to patient's use of biotin. Lab Interpretation Abnormal (test code = 50577-5) [facility] 11:57:00 Test Item Value Reference Range Interpretation Comments MAGNESIUM (test code = 6692374005) 1.8 mg/dL 1.7-2.4 Lab Interpretation (test code = Normal 29968-5) [facility] (NA, K, CL, CO2, GLUCOSE, BUN, CREATININE, CA)2021-07-24 11:56:39 Test Item Value Reference Range Interpretation Comments NA (test code = 137 mmol/L 135-145 1782571955) K (test code = 3.6 mmol/L 3.5-5.0 4713412644) CL (test code = 101 mmol/L 98-108 6338319275) CO2 TOTAL (test code = 27 mmol/L 23-31 8864644712) AGAP (test code = 2-16 0504100706) BUN (test code = 27 mg/dL 7-23 H 8483313254) GLUCOSE (test code = 81 mg/dL 70-110 0310344009) CREATININE (test code = 1.70 mg/dL 0.60-1.25 H 8882362724) CALCIUM (test code = 8.4 mg/dL 8.6-10.6 L 8041687467) eGFR (test code = mL/min/1.73m2 6490973336) JACOB (test code = JACOB) Association of Glomerular Filtration Rate (GFR) and Staging of Kidney Disease* + --+ --+ ------+| GFR (mL/min/1.73 m2) ?| With Kidney Damage ?| ?Without Kidney Damage+ --------+ --------+ +| ?>90 ?| ?Stage one ?| ? Normal ?+ ---+ ---+ -------+| ?60-89 ?| ?Stage two ?| ? Decreased GFR ? + --+ --+ ------+| ?30-59 ?| ?Stage three ?| ? Stage three ? + --+ --+ ------+| ?15-29 ?| ?Stage four ? | ? Stage four ?+ ---+ ---+ -------+| ?<15 (or dialysis) ? ?| ?Stage five ? | ? Stage five ?+ ---+ ---+ -------+ *Each stage assumes the associated GFR level has been in effect for at least three months. ?Stages 1 to 5, with or without kidney disease, indicate chronic kidney disease. Notes: Determination of stages one and two (with eGFR >59mL/min/1.73 m2) requires estimation of kidney damage for at least three months as defined by structural or functional abnormalities of the kidney, manifested by either:Pathological abnormalities or Markers of kidney damage (including abnormalities in the composition of the blood or urine or abnormalities in imaging tests). Lab Interpretation Abnormal (test code = 31067-6) [facility] WITH [id number] 11:04:50 Test Item Value Reference Range Interpretation Comments WBC (test code = See_Comment [Automated 5435-2) message] The sy stem which generated this result transmitted reference range : 4.20 - 10.70 10*3/?L. The reference range was not used to interpret this result as normal/abnormal . RBC (test code = See_Comment [Automated 372-1) message] The sy stem which generated this result transmitted reference range : 4.26 - 5.52 10*6/?L. The reference range was not used to interpret this result as normal/abnormal . HGB (test code = 12.6 g/dL 12.2-16.4 508-7) HCT (test code = 40.1 % 38.4-49.3 4544-3) MCV (test code = 82.5 fL 81.7-95.6 787-2) MCH (test code = 25.9 pg 26.1-32.7 L 785-6) MCHC (test code = 31.4 g/dL 31.2-35.0 786-4) RDW-SD (test code = 51.2 fL 38.5-51.6 71314-5) RDW-CV (test code = 17.1 % 12.1-15.4 H 788-0) PLT (test code = See_Comment [Automated 777-3) message] The sy stem which generated this result transmitted reference range : 150 - 328 10*3/ ?L. The reference r marino was not used to interpret this result as normal/abnormal . MPV (test code = 11.9 fL 9.8-13.0 67976-0) NRBC/100 WBC (test See_Comment [Automat ed code = 9149289638) message] The system which generated this result transmitted reference range : 0.0 - 10.0 /100 WBCs. The refer ence range was not u sed to interpret th is result as normal/abnormal . NRBC x10^3 (test code <0.01 See_Comment [Auto mated = 2220861426) message] The s ystem which generated this result transmitted reference range : 10*3/?L. The reference range was not used to interpret this result as normal/abnormal . GRAN MAT (NEUT) % 57.9 % (test code = 770-8) IMM GRAN % (test code 0.40 % = 6892726137) LYMPH % (test code = 24.5 % 736-9) MONO % (test code = 16.6 % 5905-5) EOS % (test code = 0.2 % 713-8) BASO % (test code = 0.4 % 706-2) GRAN MAT x10^3(ANC) 3.03 10*3/uL 1.99-6.95 (test code = 6730684429) IMM GRAN x10^3 (test <0.03 0.00-0.06 code = 3193080127) LYMPH x10^3 (test code 1.28 10*3/uL 1.09-3.23 = 731-0) MONO x10^3 (test code 0.87 10*3/uL 0.36-1.02 = 742-7) EOS x10^3 (test code = <0.03 0.06-0.53 L 711-2) BASO x10^3 (test code <0.03 0.01-0.09 = 704-7) Lab Interpretation Abnormal (test code = 33016-3) [facility] GLUCOSE (AUTOMATED)2021-07-24 02:28:24 Test Item Value Reference Range Interpretation Comments POCT GLU (test code = 91 mg/dL 70-110 Notifi ed Provider [id number]) Lab Interpretation (test Normal code = 31339-1) [facility] GLUCOSE (AUTOMATED)2021-07-23 23:27:18 Test Item Value Reference Range Interpretation Comments POCT GLU (test code = 1610068423) 78 mg/dL 70-110 Lab Interpretation (test code = Normal 93726-7) [id number] 19:57:26 Test Item Value Reference Range Interpretation Comments NT-proBNP (test code 6240 pg/mL See_Comment H [Autom ated = 5043774272) message] The system which generated this result transmitted reference range : <=125. The reference range was not used to interpret this result as normal/abnormal . JACOB (test code = JACOB) Biotin has been reported to cause a negative bias, interpret results relative to patient's use of biotin. Lab Interpretation Abnormal (test code = 79744-6) [facility] Metabolic Panel (NA, K, CL, CO2, GLUCOSE, BUN, CREATININE, CA)2021-07-23 13:06:51 Test Item Value Reference Range Interpretation Comments NA (test code = 138 mmol/L 135-145 0157454853) K (test code = 3.9 mmol/L 3.5-5.0 6666926077) CL (test code = 102 mmol/L 98-108 9553562290) CO2 TOTAL (test code = 29 mmol/L 23-31 2979430700) AGAP (test code = 2-16 9261448429) BUN (test code = 14 mg/dL 7-23 8473691290) GLUCOSE (test code = 91 mg/dL 70-110 1745904435) CREATININE (test code = 1.40 mg/dL 0.60-1.25 H 4604498074) CALCIUM (test code = 9.0 mg/dL 8.6-10.6 3946012003) eGFR (test code = mL/min/1.73m2 6320629340) JACOB (test code = JACOB) Association of Glomerular Filtration Rate (GFR) and Staging of Kidney Disease* + --+ --+ ------+| GFR (mL/min/1.73 m2) ?| With Kidney Damage ?| ?Without Kidney Damage+ --------+ --------+ +| ?>90 ?| ?Stage one ?| ? Normal ?+ ---+ ---+ -------+| ?60-89 ?| ?Stage two ?| ? Decreased GFR ? + --+ --+ ------+| ?30-59 ?| ?Stage three ?| ? Stage three ? + --+ --+ ------+| ?15-29 ?| ?Stage four ? | ? Stage four ?+ ---+ ---+ -------+| ?<15 (or dialysis) ? ?| ?Stage five ? | ? Stage five ?+ ---+ ---+ -------+ *Each stage assumes the associated GFR level has been in effect for at least three months. ?Stages 1 to 5, with or without kidney disease, indicate chronic kidney disease. Notes: Determination of stages one and two (with eGFR >59mL/min/1.73 m2) requires estimation of kidney damage for at least three months as defined by structural or functional abnormalities of the kidney, manifested by either:Pathological abnormalities or Markers of kidney damage (including abnormalities in the composition of the blood or urine or abnormalities in imaging tests). Lab Interpretation Abnormal (test code = 32722-8) [facility] [id number] 12:32:41 Test Item Value Reference Interpretation Comments Range TROPONIN I (test 0.063 ng/mL See_Comment H [Automated code = 3521502452) message] The system which generated this result transmitted reference range : <=0.034. The reference range was not used to interpret this result as normal/abnormal . JACOB (test code = Reference (Normal) JACOB) Range (defined by the 99th percentile reference limit): <= 0.034 ng/mL Note: Cardiac troponin begins to rise 3-4 hours after the onset of ischemia. Repeat in 4-6 hours if the sample was drawn within 3-4 hours of the onset of the symptom and found normal. Diagnosis of myocardial injury is made with acute changes in cTn concentrations with at least one serial sample above the 99th percentile upper reference limit (URL), taken together with the patient's clinical presentation. Biotin has been reported to cause a negative bias, interpret results relative to patient's use of biotin. Lab Interpretation Abnormal (test code = 89058-8) [facility] [id number] 12:24:58 Test Item Value Reference Range Interpretation Comments MAGNESIUM (test code = 2778375299) 1.7 mg/dL 1.7-2.4 Lab Interpretation (test code = Normal 02908-0) [facility] [id number] 12:04:34 Test Item Value Reference Range Interpretation Comments WBC (test code = See_Comment L [Automated 6690-2) message] The sy stem which generated this result transmitted reference range : 4.20 - 10.70 10*3/?L. The reference range was not used to interpret this result as normal/abnormal . RBC (test code = See_Comment [Automated 789-8) message] The sy stem which generated this result transmitted reference range : 4.26 - 5.52 10*6/?L. The reference range was not used to interpret this result as normal/abnormal . HGB (test code = 12.5 g/dL 12.2-16.4 718-7) HCT (test code = 40.8 % 38.4-49.3 4544-3) MCV (test code = 83.6 fL 81.7-95.6 787-2) MCH (test code = 25.6 pg 26.1-32.7 L 785-6) MCHC (test code = 30.6 g/dL 31.2-35.0 L 786-4) RDW-SD (test code = 52.1 fL 38.5-51.6 H 42961-2) RDW-CV (test code = 17.0 % 12.1-15.4 H 788-0) PLT (test code = See_Comment [Automated 777-3) message] The sy stem which generated this result transmitted reference range : 150 - 328 10*3/ ?L. The reference r marino was not used to interpret this result as normal/abnormal . MPV (test code = 11.1 fL 9.8-13.0 20733-3) NRBC/100 WBC (test See_Comment [Automat ed code = 2307106660) message] The system which generated this result transmitted reference range : 0.0 - 10.0 /100 WBCs. The refer ence range was not u sed to interpret th is result as normal/abnormal . NRBC x10^3 (test code <0.01 See_Comment [Auto mated = 6730682250) message] The s ystem which generated this result transmitted reference range : 10*3/?L. The reference range was not used to interpret this result as normal/abnormal . GRAN MAT (NEUT) % 60.7 % (test code = 770-8) IMM GRAN % (test code 0.60 % = 0202204129) LYMPH % (test code = 13.5 % 736-9) MONO % (test code = 24.0 % 5905-5) EOS % (test code = 0.6 % 713-8) BASO % (test code = 0.6 % 706-2) GRAN MAT x10^3(ANC) 2.08 10*3/uL 1.99-6.95 (test code = 2070502627) IMM GRAN x10^3 (test <0.03 0.00-0.06 code = 5665588880) LYMPH x10^3 (test code 0.46 10*3/uL 1.09-3.23 L = 731-0) MONO x10^3 (test code 0.82 10*3/uL 0.36-1.02 = 742-7) EOS x10^3 (test code = <0.03 0.06-0.53 L 711-2) BASO x10^3 (test code <0.03 0.01-0.09 = 704-7) Lab Interpretation Abnormal (test code = 39358-6) [facility] [id number] 09:38:15 Test Item Value Reference Range Interpretation Comments FERRITIN (test code = 46.3 ng/mL 18.0-464.0 1396438416) JACOB (test code = JACOB) Biotin has been reported to cause a negative bias, interpret results relative to patient's use of biotin. Lab Interpretation (test Normal code = 50592-7) [facility] HospitalLA[facility] [id number] 08:10:44 Test Item Value Reference Range Interpretation Comments LDH (test code = 2700643869) 434 U/L 300-600 Lab Interpretation (test code = Normal 34551-1) [facility] Hospital[facility] [id number] 08:05:07 Test Item Value Reference Interpretation Comments Range TROPONIN I (test 0.060 ng/mL See_Comment H [Automated code = 2719945133) message] The system which generated this result transmitted reference range : <=0.034. The reference range was not used to interpret this result as normal/abnormal . JACOB (test code = Reference (Normal) JACOB) Range (defined by the 99th percentile reference limit): <= 0.034 ng/mL Note: Cardiac troponin begins to rise 3-4 hours after the onset of ischemia. Repeat in 4-6 hours if the sample was drawn within 3-4 hours of the onset of the symptom and found normal. Diagnosis of myocardial injury is made with acute changes in cTn concentrations with at least one serial sample above the 99th percentile upper reference limit (URL), taken together with the patient's clinical presentation. Biotin has been reported to cause a negative bias, interpret results relative to patient's use of biotin. Lab Interpretation Abnormal (test code = 01505-6) [facility] Hospital[facility]-[id number] 07:44:06 Test Item Value Reference Interpretation Comments Range D-DIMER (test code = See_Comment H [Autom ated 9540415924) message] The system which generated this result transmitted reference range : <0.41 ?g/mL (FEU). The reference range was not used to interpret this result as normal/abnormal . JACOB (test code = This test may be JACOB) used in conjunction with a clinical pretest probability (PTP) assessment model to exclude venous thromboembolism (VTE) in patients suspected of deep venous thrombosis (DVT) and pulmonary embolism (PE) A D-Dimer value less than 0.50 ?g/ml (FEU) has a negative predicative value of 96 to 100% (95% CI)and 97 to 100% (95% CI) as an aid in the diagnosis of deep vein thrombosis (DVT) and pulmonary embolism when there is low or moderate pretest probability of PE or DVT. D-Dimer values are expressed in initial fibrinogen equivalent units (FEU)" The assay results should be used with other information, including the clinical context, in forming a diagnosis. Lab Interpretation Abnormal (test code = 15386-1) [facility] [id number] 00:37:27 Test Item Value Reference Interpretation Comments Range TROPONIN I (test 0.039 ng/mL See_Comment H [Automated code = 7955574257) message] The system which generated this result transmitted reference range : <=0.034. The reference range was not used to interpret this result as normal/abnormal . JACOB (test code = Reference (Normal) JACOB) Range (defined by the 99th percentile reference limit): <= 0.034 ng/mL Note: Cardiac troponin begins to rise 3-4 hours after the onset of ischemia. Repeat in 4-6 hours if the sample was drawn within 3-4 hours of the onset of the symptom and found normal. Diagnosis of myocardial injury is made with acute changes in cTn concentrations with at least one serial sample above the 99th percentile upper reference limit (URL), taken together with the patient's clinical presentation. Biotin has been reported to cause a negative bias, interpret results relative to patient's use of biotin. Lab Interpretation Abnormal (test code = 22753-6) [facility] [id number] 18:28:45 Test Item Value Reference Interpretation Comments Range TROPONIN I (test 0.041 ng/mL See_Comment H [Automated code = 5219713514) message] The system which generated this result transmitted reference range : <=0.034. The reference range was not used to interpret this result as normal/abnormal . JACOB (test code = Reference (Normal) JACOB) Range (defined by the 99th percentile reference limit): <= 0.034 ng/mL Note: Cardiac troponin begins to rise 3-4 hours after the onset of ischemia. Repeat in 4-6 hours if the sample was drawn within 3-4 hours of the onset of the symptom and found normal. Diagnosis of myocardial injury is made with acute changes in cTn concentrations with at least one serial sample above the 99th percentile upper reference limit (URL), taken together with the patient's clinical presentation. Biotin has been reported to cause a negative bias, interpret results relative to patient's use of biotin. Lab Interpretation Abnormal (test code = 86223-5) [facility] [id number] 18:25:43 Test Item Value Reference Range Interpretation Comments NT-proBNP (test code 5850 pg/mL See_Comment H [Autom ated = 3373970522) message] The system which generated this result transmitted reference range : <=125. The reference range was not used to interpret this result as normal/abnormal . JACOB (test code = JACOB) Biotin has been reported to cause a negative bias, interpret results relative to patient's use of biotin. Lab Interpretation Abnormal (test code = 13853-8) [facility]2021-[facility] 18:17:22 Test Item Value Reference Range Interpretation Comments MAGNESIUM (test code = 9286441046) 1.8 mg/dL 1.7-2.4 Lab Interpretation (test code = Normal 70316-7) [facility]OL[facility] PAN[facility] (62520)2021-07-22 18:17:07 Test Item Value Reference Range Interpretation Comments NA (test code = 141 mmol/L 135-145 5951168337) K (test code = 4.6 mmol/L 3.5-5.0 8307312205) CL (test code = 108 mmol/L 98-108 9630046077) CO2 TOTAL (test code = 25 mmol/L 23-31 2244881772) AGAP (test code = 2-16 1307008108) BUN (test code = 13 mg/dL 7-23 6424199792) GLUCOSE (test code = 88 mg/dL 70-110 1469460963) CREATININE (test code = 1.20 mg/dL 0.60-1.25 9893644073) TOTAL BILI (test code = 1.2 mg/dL 0.1-1.1 H 1354442100) CALCIUM (test code = 9.3 mg/dL 8.6-10.6 6215498546) T PROTEIN (test code = 7.8 g/dL 6.3-8.2 6389937556) ALBUMIN (test code = 4.2 g/dL 3.5-5.0 0132397161) ALK PHOS (test code = 43 U/L 34-122 6634810380) ALTv (test code = 17 U/L 5-50 1742-6) AST(SGOT) (test code = 42 U/L 13-40 H 9504295877) eGFR (test code = mL/min/1.73m2 8738483288) JACOB (test code = JACOB) Association of Glomerular Filtration Rate (GFR) and Staging of Kidney Disease* + --+ --+ ------+| GFR (mL/min/1.73 m2) ?| With Kidney Damage ?| ?Without Kidney Damage+ --------+ --------+ +| ?>90 ?| ?Stage one ?| ? Normal ?+ ---+ ---+ -------+| ?60-89 ?| ?Stage two ?| ? Decreased GFR ? + --+ --+ ------+| ?30-59 ?| ?Stage three ?| ? Stage three ? + --+ --+ ------+| ?15-29 ?| ?Stage four ? | ? Stage four ?+ ---+ ---+ -------+| ?<15 (or dialysis) ? ?| ?Stage five ? | ? Stage five ?+ ---+ ---+ -------+ *Each stage assumes the associated GFR level has been in effect for at least three months. ?Stages 1 to 5, with or without kidney disease, indicate chronic kidney disease. Notes: Determination of stages one and two (with eGFR >59mL/min/1.73 m2) requires estimation of kidney damage for at least three months as defined by structural or functional abnormalities of the kidney, manifested by either:Pathological abnormalities or Markers of kidney damage (including abnormalities in the composition of the blood or urine or abnormalities in imaging tests). Lab Interpretation Abnormal (test code = 78189-6) [facility] WITH [id number] 18:02:41 Test Item Value Reference Range Interpretation Comments WBC (test code = See_Comment [Automated 0990-2) message] The sy stem which generated this result transmitted reference range : 4.20 - 10.70 10*3/?L. The reference range was not used to interpret this result as normal/abnormal . RBC (test code = See_Comment [Automated 789-8) message] The sy stem which generated this result transmitted reference range : 4.26 - 5.52 10*6/?L. The reference range was not used to interpret this result as normal/abnormal . HGB (test code = 13.2 g/dL 12.2-16.4 718-7) HCT (test code = 42.2 % 38.4-49.3 4544-3) MCV (test code = 83.1 fL 81.7-95.6 787-2) MCH (test code = 26.0 pg 26.1-32.7 L 785-6) MCHC (test code = 31.3 g/dL 31.2-35.0 786-4) RDW-SD (test code = 51.6 fL 38.5-51.6 59259-4) RDW-CV (test code = 16.9 % 12.1-15.4 H 788-0) PLT (test code = See_Comment [Automated 777-3) message] The sy stem which generated this result transmitted reference range : 150 - 328 10*3/ ?L. The reference r marino was not used to interpret this result as normal/abnormal . MPV (test code = 11.3 fL 9.8-13.0 80787-0) NRBC/100 WBC (test See_Comment [Automat ed code = 9780631512) message] The system which generated this result transmitted reference range : 0.0 - 10.0 /100 WBCs. The refer ence range was not u sed to interpret th is result as normal/abnormal . NRBC x10^3 (test code <0.01 See_Comment [Auto mated = 5412855323) message] The s ystem which generated this result transmitted reference range : 10*3/?L. The reference range was not used to interpret this result as normal/abnormal . GRAN MAT (NEUT) % 67.4 % (test code = 770-8) IMM GRAN % (test code 0.40 % = 6390951993) LYMPH % (test code = 15.7 % 736-9) MONO % (test code = 14.4 % 5905-5) EOS % (test code = 1.7 % 713-8) BASO % (test code = 0.4 % 706-2) GRAN MAT x10^3(ANC) 3.09 10*3/uL 1.99-6.95 (test code = 6620844249) IMM GRAN x10^3 (test <0.03 0.00-0.06 code = 0020431832) LYMPH x10^3 (test code 0.72 10*3/uL 1.09-3.23 L = 731-0) MONO x10^3 (test code 0.66 10*3/uL 0.36-1.02 = 742-7) EOS x10^3 (test code = 0.08 10*3/uL 0.06-0.53 711-2) BASO x10^3 (test code <0.03 0.01-0.09 = 704-7) Lab Interpretation Abnormal (test code = 53105-4) [facility] [id number] 11:27:00 Test Item Value Reference Range Interpretation Comments GLUCOSE BEDSIDE TESTING (test code 109 mg/dL 70-110 N = GLUBED) BASIC METABOLIC [id number] 08:09:00 Test Item Value Reference Range Interpretation [...] CA) 9.5 MG/DL 8.5-10.1 N GLUCOSE BEDSIDE [id number] 07:15:00 Test Item Value Reference Range Interpretation Comments GLUCOSE BEDSIDE TESTING (test code 102 mg/dL 70-110 N = GLUBED) GLUCOSE BEDSIDE [id number] 23:04:00 Test Item Value Reference Range Interpretation Comments GLUCOSE BEDSIDE TESTING (test code 127 mg/dL 70-110 H = GLUBED) GLUCOSE BEDSIDE [id number] 20:03:00 Test Item Value Reference Range Interpretation Comments GLUCOSE BEDSIDE TESTING (test code 149 mg/dL 70-110 H = GLUBED) GLUCOSE BEDSIDE [id number] 16:55:00 Test Item Value Reference Range Interpretation Comments GLUCOSE BEDSIDE TESTING (test code 110 mg/dL 70-110 N = GLUBED) GLUCOSE BEDSIDE [id number] 11:23:00 Test Item Value Reference Range Interpretation Comments GLUCOSE BEDSIDE TESTING (test code 173 mg/dL 70-110 H = GLUBED) GLUCOSE BEDSIDE [id number] 08:33:00 Test Item Value Reference Range Interpretation Comments GLUCOSE BEDSIDE TESTING (test code 107 mg/dL 70-110 N = GLUBED) DRUGS OF ABUSE SCREEN [id number] 06:11:00 Test Item Value Reference Range Interpretation [...] to interpret this result as normal/abnormal . [id number] 20:43:00 Test Item Value Reference Range Interpretation [...] Completed by Nursing: NO- CTA CHEST FOR [id number] 18:35:00 [facility] 1965 Sex: M Name: WILMER PARADA [facility] : 1965 Age/S: 55 / M [address] Unit #: [id number] Loc: [place] [address] Phys: Isac Rouse DO Acct: [id number] Dis Date: Status: REG ER PHONE #: [phone] Exam Date: 02/27/2021 1800 FAX #: Reason: chest pain, elevated ddimer EXAMS: CPT: [id number] [place] [address] Location of dictation: B2 CTA of the [...] PARADA : 1965 Age/S: 55 / M [address] Unit #: [id number] Loc: [place] [address] Phys: Isac Rouse Acct: [id number] Dis Date: Status: REG ER PHONE #: [phone] Exam Date: 02/27/2021 1800 FAX #: Reason: chest pain, elevated ddimer EXAMS: CPT: [id number] [place] [address] <Continued> at 1835 Reported and signed by: April Marsh M.D. CC: Isac Rouse DO Technologist:Caitlin Slaughter, RT(R)(CT)(MRI) CTDI: DLP: Trnscb Date/Time: 02/27/2021 (1834) [email or web address] Orig Print D/T: S: 02/27/2021 (183) PAGE 2 Signed ReportCOVID 19 INHOUSE AG 2021-02-27 14:54:00 Test Item Value Reference Range Interpretation Comments COVID 19 INHOUSE AG NEGATIVE Negative Per manu facturer, (test code = negative result s should [id number]) be treated aspr esumptive and, if inconsi [...] nicalsigns and symptoms co nsistent with COVID-19. [id number] 13:38:00 Test Item Value Reference Range Interpretation [...] APPROPRIATECLIN ICAL EUALUATIONS. - XR CHEST 1 [id number] 13:35:00 [facility] 1965 Sex: M Name: WILMER PARADA [facility] : 1965 Age/S: 55 / M [address] Unit #: [id number] Loc: [place] [address] Phys: Isac Rouse DO Acct: [id number] Dis Date: Status: REG ER PHONE #: [phone] Exam Date: 02/27/2021 1320 FAX #: Reason: chest pain EXAMS: CPT: [id number] XR CHEST 1 V 80316 Fluoro Time: DAP (Gy m2): Air Kerma [...] WILMER PARADA : 1965 Age/S: 55/ M [address] Unit #: [id number] Loc: [place] [address] Phys: Isac Rouse DO Acct: [id number] Dis Date: Status: REG ER PHONE #: [phone] Exam Date: 02/27/2021 1320 FAX #: Reason: chest pain EXAMS: CPT: [id number] XR CHEST 1 V 67458 Fluoro Time:DAP (Gy m2): Air Kerma (mGy): <Continued> Technologist: Bandar Tirado RT(R)(CT) Trnscb Date/Time: 02/27/2021 (6350) tANGELIQUEPXC Orig Print D/T: S: 02/27/2021 (1396) PAGE 2 Signed ReportBASIC METABOLIC [id number] 13:29:00 Test Item Value Reference Range Interpretation [...] CK) Completed by Nursing: NONT PRO-BRAIN NATRIURETIC [id number] 13:29:00 Test Item Value Reference Range Interpretation Comments NT PRO-BRAIN NATRIURETIC PEPTI 1727 PG/ML 0-100 H (test code = PROBNP) Completed by Nursing: [id number] 13:29:00 Test Item Value Reference Range Interpretation [...] yby method. 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 [facility] [id number] 08:13:00 Test Item Value Reference Range Interpretation Comments GLUBED (test code = 101 MG/DL 70-110 N Performe d by certified GLUBED) 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 [facility] HGBA1C%2021-02-06 07:50:00 Test Item Value Reference Range Interpretation Comments HGBA1C% (test code = HGBA1C%) 5.9 %A1C 4.8-6.0 N BASIC METABOLIC [id number] 07:33:00 Test Item Value Reference Range Interpretation [...] mg/dL 8.0-10.5 N CA) TSH REFLEX TO [id number] 07:33:00 Test Item Value Reference Range Interpretation Comments TSH REFLEX TO FT4 (test code = 0.50 IU/mL 0.42-5.47 N TSHREFLEX) BASIC METABOLIC [id number] 07:28:00 Test Item Value Reference Range Interpretation [...] mg/dL 8.0-10.5 N CA) TSH REFLEX TO [id number] 07:28:00 Test Item Value Reference Range Interpretation Comments TSH REFLEX TO FT4 (test code = IU/mL 0.42-5.47 TSHREFLEX) CBC W/AUTO [id number] 07:23:00 Test Item Value Reference Range Interpretation [...] DIFF REQUIRED (test code NO = MDIFF) [id number] 20:49:00 Test Item Value Reference Range Interpretation Comments GLUBED (test code = 129 MG/DL 70-110 H Performe d by certified GLUBED) 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 [facility] COMPREHENSIVE METABOLIC [id number] 04:33:00 Test Item Value Reference Range Interpretation [...] 0-100 H <100 (test code = LDL) LGMTGHC535 -129 NEAR OPTIMAL/ABOVE [id number] [id number] 89 HIGH>GZ=859 VE RY HIGH*Guidelines provided by the National Choles terol [employer] m Adult Treatment Panel III CBC W/AUTO [id number] 04:22:00 Test Item Value Reference Range Interpretation [...] (test code NO = MDIFF) CBC W/AUTO [id number] 04:21:00 Test Item Value Reference Range Interpretation [...] MANUAL DIFF REQUIRED (test code = MDIFF) [id number] 00:46:00 Test Item Value Reference Range Interpretation [...] results may suzy y by method. LIPOPROTEIN [id number] 22:00:00 Test Item Value Reference Range Interpretation Comments LIPOPROTEIN LDL 166.8 mg/dL 0-100 H <100 OPT DHOO543-374 (test code = LDL) NEAR OPTI MAL/ABOVE QDVJRDG256-216 [id number] 89 HIGH>DR=681 VE RY HIGH*Guidelines provided by the National Choles terol [employer] m Adult Treatment Panel III [id number] 21:44:00 Test Item Value Reference Range Interpretation [...] titative results may suzy y by method. 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 e reference range was not used to interpret this result as normal/abnormal . URN BARBITURATE (test NEGATIVE See_Comment [Auto mated code = BARBITURN) SCcutoff message] [facility] system which generated this result transmit breanne [...] [Automate d code = OPIATURN) SCcutoff message] [facility] system which generated this result transmit breanne reference range : <2000 NG/ML. e reference range was not used to [...] [Automa breanne code = METHAURN) SCcutoff message] [facility] system which generated this result transmit breanne [...] Indication for culture: Dysuria/FrequencyDRUGS OF ABUSE SCREEN [id number] 17:28:00 Test Item Value Reference Range Interpretation Comments URN COCAINE (test code = SCcutoff See_Comment [A utomated message] COCAURN) The system ic h generated this result transmit breanne reference [...] See_Comment [A utomated message] OPIATURN) The system [employer] generated this result transmit breanne reference range [...] [A utomated message] = METHAURN) The system [employer] generated this result transmit breanne reference range [...] Indication for culture: Dysuria/FrequencyDRUGS OF ABUSE SCREEN [id number] 17:23:00 Test Item Value Reference Range Interpretation Comments URN COCAINE (test code = SCcutoff See_Comment [A utomated message] COCAURN) The system [employer] generated this result transmit breanne reference range [...] See_Comment [A utomated message] OPIATURN) The system [employer] generated this result transmit breanne reference range [...] [A utomated message] = METHAURN) The system [employer] generated this result transmit breanne reference range : <300 NG/ML. The reference range was not used to interpret this result as normal/abnormal . Indication for culture: Dysuria/Frequency- CTA CHEST FOR [id number] 16:11:00[facility] 1965 Sex: M Name: WILMER PARADA [facility] : 1965 Age/S: 55 / M [address] Unit #: [id number] Loc: [place] [address] Phys: Isac Rouse Acct: [id number] Dis Date: Status: REG ER PHONE #: [phone] Exam Date: 02/04/2021 1540 FAX #: Reason: chest pain EXAMS: CPT: [id number] [place] [address] EXAM: - CTA CHEST FOR PE LOCATION: [...] 1 Signed Report (CONTINUED) Name: WILMER PARADA [facility] [place] : 1965 Age/S: 55 / M [address] Unit #: [id number] Loc: [place] [address] Phys: Isac Rouse DO Acct: [id number] Dis Date: Status: REG ER PHONE #: [phone] Exam Date: 02/04/2021 1540 FAX #: Reason: chest pain EXAMS: CPT: [id number] [place] [address] <Continued> BONES: No acute osseous findings. Mild thoracic texture scoliosis. IMPRESSION: 1. No pulmonary embolism. No acute findings throughout the lungs. 2. Borderline dilated heart chambers. at 1611 Reported and signed by:Luis Rogers D.O. CC: Isac Rouse DO; Afua DARNELL Technologist:Carmen Ruggiero, RT(R) CTDI: DLP: Trnscb Date/Time: 02/04/2021 (1611) [email or web address].[email or web address] Orig Print D/T: S: 02/04/2021 (1615) PAGE 2 Signed ReportD-DIMER 2021-02-04 14:30:00 Test Item Value Reference Range Interpretation Comments D-DIMER (test code = DDIMER) 979 ng/mLFEU 215-500 HH BASIC METABOLIC [id number] 14:03:00 Test Item Value Reference Range Interpretation [...] 8.9 MG/DL 8.5-10.1 N Completed by Nursing: FAMILIAREATINE KINASE (CK)2021-02-04 14:03:00 Test Item Value Reference Range Interpretation Comments CREATINE KINASE (CK) (test code = 776 Unit/L 26-192 H CK) Completed by Nursing: [id number] 14:03:00 Test Item Value Reference Range Interpretation [...] method. Completed by Nursing: NOCOVID 19 INHOUSE [id number] 13:50:00 Test Item Value Reference Range Interpretation Comments COVID 19 INHOUSE AG NEGATIVE Negative Per manu facturer, (test code = negative result s should [id number]) be treated aspr esumptive and, if inconsi [...] nsistent with COVID-19. - XR CHEST 1 [id number] 13:44:00 [facility] : 1965 Sex: M Name: [place]MER [place] : 1965 Age/S: 55 / M [address] Unit #: [id number] Loc: [place] [address] Phys: Isac Rouse DO Acct: [id number] Dis Date: Status: PRE ER PHONE #: [phone] Exam Date: 02/04/2021 1326 FAX #: Reason: chest pain EXAMS: CPT: [id number] XR CHEST 1 V 97430 Fluoro Time: DAP (Gy m2): Air Kerma [...] PARADA : 1965 Age/S: 55 / M [address] Unit #: [id number] Loc: [place] [address] Phys: Isac Rouse DO Acct: [id number] Dis Date: Status: PRE ER PHONE #: [phone] Exam Date: 02/04/2021 1326 FAX #: Reason: chest pain EXAMS: CPT: [id number] XR CHEST 1 V 28700 Fluoro Time: DAP (Gy m2): Air Kerma (mGy): <Continued> Technologist: Carmen Ruggiero, RT(R) Trnscb Date/Time: 02/04/2021 (5727) VikramRK5 Orig Print D/T: S: 02/04/2021 (4593) PAGE 2 Signed ReportCBC W/O [id number] 13:36:00 Test Item Value Reference Range Interpretation [...] 10.90 fL 7.0-9.6 H MPV) BASIC METABOLIC [id number] 12:58:00 Test Item Value Reference Range Interpretation [...] CA) 9.0 MG/DL 8.5-10.1 N CBC W/AUTO [id number] 12:51:00 Test Item Value Reference Range Interpretation [...] . [Automated mess age] The system which [employer] nerated this result tra nsmitted reference range : 0-. The reference range was not used to interpr et this result as normal/abnormal . HDL CHOLESTEROL 39 MG/DL 40-59 L (test code = HDL) NON-HDL CHOLESTEROL 144 mg/dL <130 H (test code = NHDL) LIPOPROTEIN LDL 119 MG/DL 0-129 N <100 WPELGXT697 - (test code = LDL) 129 CELI R OPTIMAL/ABOVE GCSOEAL498 - 15 9 KNUKPQKREF267 - 189 HIGH>OR= 190 VERY HIGHNOTE THAT G UIDELINES ARE PROVIDED BY NATIONAL CHOLESTEROLEDUC ATION PROGRAM ADULT T REATMENT PANEL III LDL/HDL (test code 3.05 Ratio See_Comment N [Automat ed message] The = LDL/HDL) system which [employer] nerated this result tra nsmitted reference range : 1.48-3.22 Avg. The reference range was not used to interpr et this result as normal/abnormal . GLYCOSYLATED HEMOGLOBIN [id number] 12:24:00 Test Item Value Reference Range Interpretation Comments GLYCOSYLATED HEMOGLOBIN (HA1C) 5.8 % A1C 0.0-5.7 H (test code = GLYHGB) ESTIMATED AVERAGE GLUCOSE (test 120 MG/DLest code = EAG) GLUCOSE BEDSIDE [id number] 12:05:00 Test Item Value Reference Range Interpretation Comments GLUCOSE BEDSIDE TESTING (test code 151 mg/dL 70-110 H = GLUBED) - XR CHEST 1 [id number] 11:05:00 [facility] : 1965 Sex: M Name: WILMER PARADA [facility] : 1965 Age/S: 55 / M [address] Unit #: [id number] Loc: [place] [address] Phys: Rolando Napier Acct: [id number] Dis Date: Status: ADM IN PHONE #: [phone] Exam Date: 01/07/2021 1050 FAX #: Reason: Cough EXAMS: CPT: [id number] XR CHEST 1 V 79362 Fluoro Time: DAP (Gy m2): Air Kerma [...] PAGE 1 Signed Report Name: WILMER PARADA [facility] Con[place] : 1965 Age/S: 55 / M [address] Unit #: [id number] Loc: [place] [address] Phys: Sadie NapierROHIT Acct: [id number] Dis Date: Status: ADM IN PHONE #: [phone] Exam Date: 01/07/2021 1050 FAX #: Reason: Cough EXAMS: CPT: [id number] XR CHEST 1 V 14909 Fluoro Time: DAP (Gy m2): Air Kerma (mGy): <Continued> Technologist: Jonna Ramirez, RT(R)(MR) Trnscb Date/Time: 01/07/2021 (110) VikramPE1 Orig Print D/T: S: 01/07/2021 (1108) PAGE 2 Signed ReportGLUCOSE BEDSIDE [id number] 08:05:00 Test Item Value Reference Range Interpretation Comments GLUCOSE BEDSIDE TESTING (test code 105 mg/dL 70-110 N = GLUBED) GLUCOSE BEDSIDE [id number] 21:27:00 Test Item Value Reference Range Interpretation Comments GLUCOSE BEDSIDE TESTING (test code 100 mg/dL 70-110 N = GLUBED) GLUCOSE BEDSIDE [id number] 16:40:00 Test Item Value Reference Range Interpretation Comments GLUCOSE BEDSIDE TESTING (test code = 89 mg/dL 70-110 N GLUBED) GLUCOSE BEDSIDE [id number] 12:10:00 Test Item Value Reference Range Interpretation Comments GLUCOSE BEDSIDE TESTING (test code = 94 mg/dL 70-110 N GLUBED) GLUCOSE BEDSIDE [id number] 07:51:00 Test Item Value Reference Range Interpretation Comments GLUCOSE BEDSIDE TESTING (test code 102 mg/dL 70-110 N = GLUBED) GLUCOSE BEDSIDE [id number] 20:30:00 Test Item Value Reference Range Interpretation Comments GLUCOSE BEDSIDE TESTING (test code = 98 mg/dL 70-110 N GLUBED) GLUCOSE BEDSIDE [id number] 15:39:00 Test Item Value Reference Range Interpretation Comments GLUCOSE BEDSIDE TESTING (test code 102 mg/dL 70-110 N = GLUBED) - CT ANGIO [id number] 14:06:00 [facility] 1965 Sex: M Name: WILMER PARADA [facility] : 1965 Age/S: 55 / M [address] Unit #: [id number] Loc: [place] [address] Phys: Anabela Le MD Acct: [id number] Dis Date: Status: ADM IN PHONE #: [phone] Exam Date: 01/05/2021 1334 FAX #: Reason: CVA EXAMS: CPT: [id number] CT ANGIO NECK 79383 Exam: - CT ANGIO HEAD, - CT [...] PARADA : 1965 Age/S: 55 / M [address] Unit #: [id number] Loc: [place] [address] Phys: Anabela Le MD Acct: [id number] Dis Date: Status: ADM IN PHONE #: [phone] Exam Date: 01/05/2021 8733 FAX #: Reason: CVA EXAMS: CPT: [id number] CT ANGIO NECK [address] <Continued> visualized fascial planes ofthe neck are [...] PARADA : 1965 Age/S: 55 / M [address] Unit #: [id number] Loc: [place] [address] Phys: Anabela Le MD Acct: [id number] Dis Date: Status: ADM IN PHONE #: [phone] Exam Date: 01/05/2021 1336 FAX #: Reason: CVA EXAMS: CPT: [id number] CT ANGIO NECK [address] <Continued> Posterior communicating arteries: Not visualized Distal [...] 3 Signed Report (CONTINUED) Name: WILMER PARADA [facility] : 1965 Age/S: 55 / M [address] Unit #: [id number] Loc: [place], [place] [address]Mgal: Anabela Le MD Acct: [id number] Dis Date: Status: ADM IN PHONE #: [phone] Exam Date: 01/05/2021 2213 FAX #: Reason: CVA EXAMS: CPT: [id number] CT ANGIO NECK [address]87[address] <Continued> CC: Anabela Le MD; Yared Scott MD Technologist:Gregory Sahni, RT(R)(CT); .. CTDI: DLP: Trnscb Date/Time: 01/05/2021 (5788) t.SDR.AL7 Orig Print D/T: S: 01/05/2021 (1328) PAGE 4 Signed Report- CT ANGIO [id number] 14:06:00 [facility] : 1965 Sex: M Name: WILMER PARADA [facility] : 1965 Age/S: 55 / M [address] Unit #: [id number] Loc: [place] [address] Phys: Anabela Le MD Acct: [id number] Dis Date: Status: ADM IN PHONE #: [phone] Exam Date: 01/05/2021 1330 FAX #: Reason: CVA EXAMS: CPT: [id number] CT ANGIO HEAD [address]655 Exam: - CT ANGIO HEAD, - CT [...] PARADA : 1965 Age/S: 55 / M [address] Unit #: [id number] Loc: [place] [address] Phys: Anabela Le MD Acct: [id number] Dis Date: Status: ADM IN PHONE #: [phone] Exam Date: 01/05/2021 1330 FAX #: Reason: CVA EXAMS: CPT: [id number] CT ANGIO HEAD [address] <Continued> visualized fascial planes ofthe neck are [...] PARADA : 1965 Age/S: 55 / M [address] Unit #: [id number] Loc: [place] [address] Phys: Anabela Le MD Acct: [id number] Dis Date: Status: ADM IN PHONE #: [phone] Exam Date: 01/05/2021 1330 FAX #: Reason: CVA EXAMS: CPT: [id number] CT ANGIO HEAD [address] <Continued> Posterior communicating arteries: Not visualized Distal [...] 3 Signed Report (CONTINUED) Name: WILMER PARADA [facility] : 1965 Age/S: 55 / M [address] Unit #: [id number] Loc: [place] [address]Wsge: Anabela Le MD Acct: [id number] Dis Date: Status: ADM IN PHONE #: [phone] Exam Date: 01/05/2021 1330 FAX #: Reason: CVA EXAMS: CPT: [id number] CT ANGIO HEAD [address] <Continued> CC: Anabela Le MD; Yared Scott MD Technologist:Gregory Sahni, RT(R)(CT); .. CTDI: DLP: Trnscb Date/Time: 01/05/2021 (1406) t.SDR.AL7 Orig Print D/T: S: 01/05/2021 (2100) PAGE 4 Signed ReportBASIC METABOLIC [id number] 12:38:00 Test Item Value Reference Range Interpretation [...] CA) 9.0 MG/DL 8.5-10.1 N CBC W/AUTO [id number] 12:28:00 Test Item Value Reference Range Interpretation [...] code NO DIFF/SCN CRITERIA = MDIFF) PROTHROMBIN [id number] 12:27:00 Test Item Value Reference Range Interpretation Comments PT PATIENT (test code = PTP) 12.1 SECONDS 9.3-12.9 N INTERNATIONAL NORMAL RATIO 1.08 INR Unit 0.8-1.2 N (test code = INR) THROMBOPLASTIN TIME [id number] 12:27:00 Test Item Value Reference Range Interpretation Comments THROMBOPLASTIN TIME PARTIAL 33.0 SECONDS 26-35 N (test code = PTT) GLUCOSE BEDSIDE [id number] 11:56:00 Test Item Value Reference Range Interpretation Comments GLUCOSE BEDSIDE TESTING (test code 101 mg/dL 70-110 N = GLUBED) - CT HEAD/BRAIN W/O [id number] 11:53:00 [facility] : 1965 Sex: M Name: WILMER PARADA [facility] : 1965 Age/S: 55 / M [address] Unit #: [id number] Loc: [place] [address] Phys: Susan Conway MD Acct: [id number] Dis Date: Status: ADM IN PHONE #: [phone] Exam Date: 01/05/2021 1131 FAX #: Reason: left sided weakness EXAMS: CPT: [id number] CT HEAD/BRAIN W/O CONT 52505 EXAM: CT Head without contrast Location: B2 [...] 1 Signed Report (CONTINUED) Name: WILMER PARADA [facility] : 1965 Age/S: 55 / M [address] Unit #: [id number] Loc: [place] [address] Phys: Susan Conway MD Acct: [id number] Dis Date: Status: ADM IN PHONE #: [phone] Exam Date: 01/05/2021 1139 FAX #: Reason: left sided weakness EXAMS: CPT: [id number] CT HEAD/BRAIN W/O CONT 82917 <Continued> on 01/05/2021 FOR INTERNAL CODING PURPOSES ONLY RESULT CODE: CVR at 1153 Reported and signed by: Diego Paez M.D. CC:Susan Conway MD; Yared Scott MD Technologist:Gregory Sahni RT(R)(CT); .. CTDI: DLP: Trnscb Date/Time: 01/05/2021 (115) t.SDR.AL7 Orig Print D/T: S: 01/05/2021 (1157) PAGE 2 Signed ReportGLUCOSE BEDSIDE [id number] 07:54:00 Test Item Value Reference Range Interpretation Comments GLUCOSE BEDSIDE TESTING (test code 118 mg/dL 70-110 H = GLUBED) GLUCOSE BEDSIDE [id number] 21:52:00 Test Item Value Reference Range Interpretation Comments GLUCOSE BEDSIDE TESTING (test code = 98 mg/dL 70-110 N GLUBED) GLUCOSE BEDSIDE [id number] 15:47:00 Test Item Value Reference Range Interpretation Comments GLUCOSE BEDSIDE TESTING (test code 124 mg/dL 70-110 H = GLUBED) GLUCOSE BEDSIDE [id number] 11:34:00 Test Item Value Reference Range Interpretation Comments GLUCOSE BEDSIDE TESTING (test code 107 mg/dL 70-110 N = GLUBED) GLUCOSE BEDSIDE [id number] 07:37:00 Test Item Value Reference Range Interpretation Comments GLUCOSE BEDSIDE TESTING (test code 109 mg/dL 70-110 N = GLUBED) BASIC METABOLIC [id number] 04:53:00 Test Item Value Reference Range Interpretation [...] code = CA) 8.7 MG/DL 8.5-10.1 N [id number] 04:53:00 Test Item Value Reference Range Interpretation Comments PHOSPHOROUS (test code = PHOS) 3.8 MG/DL 2.5-4.9 N [id number] 04:53:00 Test Item Value Reference Range Interpretation Comments MAGNESIUM (test code = MAG) 2.1 MG/DL 1.8-2.4 N NT PRO-BRAIN NATRIURETIC [id number] 04:53:00 Test Item Value Reference Range Interpretation Comments NT PRO-BRAIN NATRIURETIC PEPTI 753 PG/ML 0-100 H (test code = PROBNP) BASIC METABOLIC [id number] 04:47:00 Test Item Value Reference Range Interpretation [...] code = CA) 8.7 MG/DL 8.5-10.1 N [id number] 04:47:00 Test Item Value Reference Range Interpretation Comments PHOSPHOROUS (test code = PHOS) MG/DL 2.5-4.9 [id number] 04:47:00 Test Item Value Reference Range Interpretation Comments MAGNESIUM (test code = MAG) 2.1 MG/DL 1.8-2.4 N NT PRO-BRAIN NATRIURETIC [id number] 04:47:00 Test Item Value Reference Range Interpretation Comments NT PRO-BRAIN NATRIURETIC PEPTI (test PG/ML 0-100 code = PROBNP) CBC W/AUTO [id number] 04:34:00 Test Item Value Reference Range Interpretation [...] NO DIFF/SCN CRITERIA = MDIFF) GLUCOSE BEDSIDE [id number] 22:32:00 Test Item Value Reference Range Interpretation Comments GLUCOSE BEDSIDE TESTING (test code = 88 mg/dL 70-110 N GLUBED) GLUCOSE BEDSIDE [id number] 17:59:00 Test Item Value Reference Range Interpretation Comments GLUCOSE BEDSIDE TESTING (test code = 97 mg/dL 70-110 N GLUBED) - XR CHEST 1 [id number] 17:25:00 [facility] : 1965 Sex: M Name: WILMER PARADA : 1965 Age/S: 55 / M [address] Unit #: [id number] Loc: [place] [address] Phys: KarthikeyanRosinaimmanuel GONZALEZ Acct: [id number] Dis Date: Status: ADM IN PHONE #: [phone] Exam Date: 01/03/20210 FAX #: Reason: Dyspnea EXAMS: CPT: [id number] XR CHEST 1 V 91163 Fluoro Time: DAP (Gy m2): Air Kerma [...] Taylor 1 Signed Report Name: WILMER PARADA [place] : 1965 Age/S: 55 / M [address] Unit #: [id number] Loc: [place] [address] Phys: Rolando Napier Acct: [id number] Dis Date: Status: ADM IN PHONE #: [phone] Exam Date: 01/03/2021 1518 FAX #: Reason: Dyspnea EXAMS: CPT: [id number] XR CHEST 1 V 44471 Fluoro Time: DAP (Gy m2): Air Kerma (mGy): <Continued> Technologist: Polly Mcnamara, RT(R)(CT); Nikole Rider RT(R) Trnkyb Date/Time: 01/03/2021 (5081) VikramMD16 Orig Print D/T: S: 01/03/2021 (7093) PAGE 2 Signed ReportBASIC METABOLIC PANEL 2021-01-03 [...] 8.9 MG/DL 8.5-10.1 N Completed by Nursing: [id number] 14:57:00 Test Item Value Reference Range Interpretation [...] method. Completed by Nursing: NOCOVID 19 INHOUSE [id number] 14:55:00 Test Item Value Reference Range Interpretation Comments COVID 19 INHOUSE AG NEGATIVE Negative Per manu facturer, (test code = negative result s should [id number]) be treated aspr esumptive and, if inconsi [...] co nsistent with COVID-19. Spec Comments: NPROTHROMBIN [id number] 14:54:00 Test Item Value Reference Range Interpretation Comments PT PATIENT (test code = PTP) 11.0 SECONDS 9.3-12.9 N INTERNATIONAL NORMAL RATIO 0.98 INR Unit 0.8-1.2 N (test code = INR) THROMBOPLASTIN TIME [id number] 14:54:00 Test Item Value Reference Range Interpretation Comments THROMBOPLASTIN TIME PARTIAL 30.0 SECONDS 26-35 N (test code = PTT) - CT ANGIO [id number] 14:53:00 [facility] 1965 Sex: M Name: WILMER PARADA [facility] : 1965 Age/S: 55 / M [address] Unit #: [id number] Loc: [place] [address] Phys: Musa Alfaro DO Acct: [id number] Dis Date: Status: REG ER PHONE #: [phone] Exam Date: 01/03/2021 1425 FAX #: Reason: left sided weakness EXAMS: CPT: [id number] CT ANGIO HEAD 68[address] B2 - CT ANGIO NECK, - CT [...] 1 Signed Report (CONTINUED) Name: WILMER PARADA [facility] [place] : 1965 Age/S: 55 / M [address] [facility] [address] Unit #: [id number] Loc: [place] [address] Phys: Musa Alfaro DO Acct: [id number] Dis Date: Status: REG ER PHONE #: [phone] Exam Date: 01/03/2021 1425 FAX #: Reason: left sided weakness EXAMS: CPT:[id number] CT ANGIO HEAD [address] <Continued> Both posterior cerebral arteries are normal. [...] Rider, RT(R) CTDI: DLP: Trnscb Date/Time: 01/03/2021 (4253) t.VB7 Orig Print D/T: S: 01/03/2021 (1457) PAGE 2 Signed Report- CT ANGIO [id number] 14:53:00 [facility] 1965 Sex: M Name: WILMER PARADA [facility] : 1965 Age/S: 55 / M [address] Unit #: [id number] Loc: [place] [address] Phys: Musa Alfaro DO Acct: [id number] Dis Date: Status: REG ER PHONE #: [phone] Exam Date: 01/03/2021 0658 FAX #: Reason: left sided weakness EXAMS: CPT: [id number] CT ANGIO NECK [address]221 B2 - CT ANGIO NECK, - CT [...] PARADA : 1965 Age/S: 55 / M [address] Unit #: [id number] Loc: [place] [address] Phys: Musa Alfaro DO Acct: [id number] Dis Date: Status: REG ER PHONE #: [phone] Exam Date: 01/03/2021 1429 FAX #: Reason: left sided weakness EXAMS: CPT:[id number] CT ANGIO NECK 27597 <Continued> Both posterior cerebral arteries are normal. [...] (1453) t.SYEDR.VB7 Orig Print D/T: S: 01/03/2021 (2230) PAGE 2 Signed ReportC[facility]AL [facility] W/O [id number] 14:32:00 Test Item Value Reference Range Interpretation [...] 7.0-9.6 H MPV) - CT HEAD/BRAIN W/O [id number] 14:20:00 [facility] : 1965 Sex: M Name: WILMER PARADA [facility] : 1965 Age/S: 55 / M [address] [address] Unit #: [id number] Loc: [place] [address] Phys: Musa Alfaro DO Acct: [id number] Dis Date: Status: PRE ER PHONE #: [phone] Exam Date: 01/03/2021 1409 FAX #: Reason: Code Stroke EXAMS: CPT: [id number] CT HEAD/BRAIN W/O CONT 80109 EXAMINATION: Head CT without contrast INDICATION: Code stroke COMPARISON: 11/29/2020 LOCATION: S17 TECHNIQUE: Axial noncontrast head CT was performed. Sagittal and coronal reformatted images were created. CT radiation dose optimization is achieved for this examination by the use of a CT protocol in accordance with ACR practice guidelines and adherence to silk screen frame assembler recommendations. DLP: 836 mGy-cm. FINDINGS: Mild-moderate supratentorial [...] (1419) [id number] Orig Print D/T: S: 01/03/2021 (3667) PAGE 1 Signed ReportGLUCOSE BEDSIDE [id number] 11:35:00 Test Item Value Reference Range Interpretation Comments GLUCOSE BEDSIDE TESTING (test code 115 MG/DL 70-119 N = GLUBED) CBC W/AUTO [id number] 09:54:00 Test Item Value Reference Range Interpretation [...] 0.00 K/mm3 0.00-0.05 N NRBC#) RECOLLECTGLUCOSE BEDSIDE [id number] 07:34:00 Test Item Value Reference Range Interpretation Comments GLUCOSE BEDSIDE TESTING (test code 116 MG/DL 70-119 N = GLUBED) BASIC METABOLIC [id number] 06:24:00 Test Item Value Reference Range Interpretation [...] (test code = MG Index/DL The system [employer]) generated this result transmit breanne reference range [...] to interpret this result as normal/abnormal . [id number] 06:24:00 Test Item Value Reference Range Interpretation Comments MAGNESIUM (test code = MAG) 2.3 MG/DL 1.6-2.6 N GLUCOSE BEDSIDE [id number] 20:37:00 Test Item Value Reference Range Interpretation Comments GLUCOSE BEDSIDE TESTING (test code 118 MG/DL 70-119 N = GLUBED) GLUCOSE BEDSIDE [id number] 16:47:00 Test Item Value Reference Range Interpretation Comments GLUCOSE BEDSIDE TESTING (test code 100 MG/DL 70-119 N = GLUBED) GLUCOSE BEDSIDE [id number] 07:44:00 Test Item Value Reference Range Interpretation Comments GLUCOSE BEDSIDE TESTING (test code 121 MG/DL 70-119 H = GLUBED) GLUCOSE BEDSIDE [id number] 19:59:00 Test Item Value Reference Range Interpretation Comments GLUCOSE BEDSIDE TESTING (test code 135 MG/DL 70-119 H = GLUBED) GLUCOSE BEDSIDE [id number] 15:51:00 Test Item Value Reference Range Interpretation Comments GLUCOSE BEDSIDE TESTING (test code = 85 MG/DL 70-119 N GLUBED) - NM MYOCRD SPECT R/S [id number] 13:57:00 [facility] : 1965 Sex: M ------- Patient Name: WILMER PARADA Unit No: [id number] EXAMS: CPT CODE: [id number] NM MYOCRD SPECT R/S [facility] [address] Patient was brought to the stress test [...] for processing and reporting. CC: Alexa DELA CRUZ,OVEN BAKER,WARP SPLITTER Reginald; Jake Olmos DO [facility] NAME: WILMER PARADA [facility] PHYS: Alexa Farrell APRN[address] : 1965 AGE: 54 SEX: Kenrick [place] [address] LOC: B.293 W PHONE #: [phone] EXAM DATE: 12/01/2020 STATUS: ADM IN FAX #: [phone] RAD NO: DC Dt: PAGE 1 Signed Report Patient Name: WILMER PARADA Unit No: [id number] EXAMS: CPT CODE: [id number] NM MYOCRD SPECT R/S MULT 64505 <Continued> Technologist: Macy Obrien; Palomo Sepulveda Transcribed Date/Time: 12/03/2020 (6105)- [email or web address] Orig Print D/T: S: 12/03/2020 (1400) EMILY Chamorro NAME: [facility] PHYS: Alexa Farrell APRN[address] : 1965 AGE: 54 SEX: Kenrick [place] [address] LOC: B.718 W PHONE #: [phone] EXAM DATE: 12/01/2020 STATUS: ADM IN FAX #: [phone] RAD NO: DC Dt: PAGE 2 Signed ReportGLUCOSE BEDSIDE [id number] 11:46:00 Test Item Value Reference Range Interpretation Comments GLUCOSE BEDSIDE TESTING (test code 114 MG/DL 70-119 N = GLUBED) [id number] 07:43:00 Test Item Value Reference Range Interpretation Comments CKMB (test code = 1.1 NG/ML 1.0-3.6 N MONOCLONAL CKMB CKMBT) METHODOLOGY. [id number] 07:43:00 Test Item Value Reference Range Interpretation [...] changes in trop onin levelscharacter istic of [place]. GLUCOSE BEDSIDE [id number] 07:35:00 Test Item Value Reference Range Interpretation Comments GLUCOSE BEDSIDE TESTING (test code 104 MG/DL 70-119 N = GLUBED) [id number] 07:24:00 Test Item Value Reference Range Interpretation Comments CKMB (test code = CKMBT) NG/ML 1.0-3.6 [id number] 07:24:00 Test Item Value Reference Range Interpretation [...] changes in trop onin levelscharacter istic of [place]. BASIC METABOLIC [id number] 06:50:00 Test Item Value Reference Range Interpretation [...] message] (test code = Index/DL The system [employer]) generated this result transmit breanne reference range [...] to interpret this result as normal/abnormal . [id number] 06:50:00 Test Item Value Reference Range Interpretation Comments MAGNESIUM (test code = MAG) 2.2 MG/DL 1.6-2.6 N BASIC METABOLIC [id number] 06:24:00 Test Item Value Reference Range Interpretation [...] to interpret this result as normal/abnormal . [id number] 06:24:00 Test Item Value Reference Range Interpretation Comments MAGNESIUM (test code = MAG) MG/DL 1.6-2.6 GLUCOSE BEDSIDE [id number] 19:35:00 Test Item Value Reference Range Interpretation Comments GLUCOSE BEDSIDE TESTING (test code 130 MG/DL 70-119 H = GLUBED) GLUCOSE BEDSIDE [id number] 16:35:00 Test Item Value Reference Range Interpretation Comments GLUCOSE BEDSIDE TESTING 103 MG/DL 70-119 N Noti fied Nurse~ (test code = GLUBED) GLUCOSE BEDSIDE [id number] 12:00:00 Test Item Value Reference Range Interpretation Comments GLUCOSE BEDSIDE TESTING 128 MG/DL 70-119 H Noti fied Nurse~ (test code = GLUBED) GLUCOSE BEDSIDE [id number] 08:28:00 Test Item Value Reference Range Interpretation Comments GLUCOSE BEDSIDE TESTING 123 MG/DL 70-119 H Noti fied Nurse~ (test code = GLUBED) GLUCOSE BEDSIDE [id number] 19:40:00 Test Item Value Reference Range Interpretation Comments GLUCOSE BEDSIDE TESTING (test code = 84 MG/DL 70-119 N GLUBED) GLUCOSE BEDSIDE [id number] 16:53:00 Test Item Value Reference Range Interpretation Comments GLUCOSE BEDSIDE TESTING 100 MG/DL 70-119 N Noti fied Nurse~ (test code = GLUBED) GLUCOSE BEDSIDE [id number] 13:00:00 Test Item Value Reference Range Interpretation Comments GLUCOSE BEDSIDE TESTING (test code 128 MG/DL 70-119 H = GLUBED) GLUCOSE BEDSIDE [id number] 08:35:00 Test Item Value Reference Range Interpretation Comments GLUCOSE BEDSIDE TESTING (test code = 95 MG/DL 70-119 N GLUBED) GLUCOSE BEDSIDE [id number] 19:49:00 Test Item Value Reference Range Interpretation Comments GLUCOSE BEDSIDE TESTING (test code 117 MG/DL 70-119 N = GLUBED) GLUCOSE BEDSIDE [id number] 16:52:00 Test Item Value Reference Range Interpretation Comments GLUCOSE BEDSIDE TESTING (test code 103 MG/DL 70-119 N = GLUBED) GLUCOSE BEDSIDE [id number] 12:30:00 Test Item Value Reference Range Interpretation Comments GLUCOSE BEDSIDE TESTING (test code 121 MG/DL 70-119 H = GLUBED) GLUCOSE BEDSIDE [id number] 07:43:00 Test Item Value Reference Range Interpretation Comments GLUCOSE BEDSIDE TESTING (test code = 96 MG/DL 70-119 N GLUBED) COMPREHENSIVE METABOLIC [id number] 05:53:00 Test Item Value Reference Range Interpretation [...] (test code = MG Index/DL The system [employer] HEMINDEX) generated this result transmit breanne reference [...] s maybe code = HDL) depressed if pa kyler is taking Metamizole(Dipy vik) . NON-HDL CHOLESTEROL [...] ave rage [Automated mess age] The system Meezic h generated this result transmit breanne reference range : 1.48-3.22 Avg. The reference range was not used to interpret this result as normal/abnormal . [id number] 05:53:00 Test Item Value Reference Range Interpretation Comments MAGNESIUM (test code = MAG) 2.2 MG/DL 1.6-2.6 N COMPREHENSIVE METABOLIC [id number] 05:38:00 Test Item Value Reference Range Interpretation [...] See_Comment [Autom ated message] LDL/HDL) The system [employer] generated this result transmitted ref erence range: 1.48-3.2 2 Avg. The reference r marino was not used to interpret this result as normal/abnor mal. [id number] 05:38:00 Test Item Value Reference Range Interpretation Comments MAGNESIUM (test code = MAG) MG/DL 1.6-2.6 GLYCOSYLATED HEMOGLOBIN (HA1C)2020-11-30 05:21:00 Test Item Value Reference Range Interpretation Comments GLYCOSYLATED HEMOGLOBIN (HA1C) 5.9 % IS-A1C 4.5-5.6 H (test code = GLYHGB) Specimen comments: use blood sample in the labComments to Washer Hand: use blood sample in the labCBC W/AUTO [id number] 05:12:00 Test Item Value Reference Range Interpretation [...] code = 0.00 K/mm3 0.00-0.05 N NRBC#) [id number] 00:17:00 Test Item Value Reference Range Interpretation Comments CKMB (test code = 1.4 NG/ML 1.0-3.6 N MONOCLONAL CKMB CKMBT) METHODOLOGY. [id number] 00:17:00 Test Item Value Reference Range Interpretation [...] changes in trop onin levelscharacter istic of [place]. [id number] 23:57:00 Test Item Value Reference Range Interpretation Comments CKMB (test code = CKMBT) NG/ML 1.0-3.6 [id number] 23:57:00 Test Item Value Reference Range Interpretation [...] changes in trop onin levelscharacter istic of [place]. GLUCOSE BEDSIDE [id number] 20:50:00 Test Item Value Reference Range Interpretation Comments GLUCOSE BEDSIDE TESTING (test code 126 MG/DL 70-119 H = GLUBED) [id number] 20:10:00 Test Item Value Reference Range Interpretation Comments CKMB (test code = 1.6 NG/ML 1.0-3.6 N MONOCLONAL CKMB CKMBT) METHODOLOGY. [id number] 20:10:00 Test Item Value Reference Range Interpretation [...] changes in trop onin levelscharacter istic of [place]. [id number] 19:57:00 Test Item Value Reference Range Interpretation Comments CKMB (test code = CKMBT) NG/ML 1.0-3.6 [id number] 19:57:00 Test Item Value Reference Range Interpretation [...] changes in trop onin levelscharacter istic of [place]. COVID 19 Asymptomatic IH [id number] 18:32:00 Test Item Value Reference Range Interpretation Comments COVID 19 Asymptomatic IH AG (test Negative Neg code = COVNONPUIAG) - CT ANGIO [id number] 17:08:00 [facility] : 1965 Sex: M Patient Name: WILMER PARADA Unit No: [id number] EXAMS: CPT CODE: [id number] CT ANGIO HEAD [address] Dictation location: [place]. CT ANGIOGRAM OF THE NECK AND HEAD WITH IV CONTRAST; MIP AND 3-D RECONSTRUCTIONS HISTORY: Left sided weakness COMPARISON: None TECHNIQUE: Axial CT images of the neck and head were obtained with coronal and/or sagittal reformatted views. MIP and/or 3-D reconstruction were obtained of the carotid arteries in the neck and [place] of [place]. Automated exposure control, iterative reconstruction [...] limited. No definite occlusion or aneurysm. EMILY Pedro Pablo NAME: [address] PHYS: [place], [place] [address] : 1965 AGE: 54 SEX: M LOC: B.CHERISE PHONE #: [phone] EXAM DATE: 11/29/2020 STATUS: REG ER FAX #: [phone] RAD #: D/C DT PAGE 1 Signed Report (CONTINUED) Patient Name: WILMER PARADA Unit No: [id number] EXAMS: CPT CODE: [id number] CT ANGIO HEAD [address] <Continued> at 1708 Reported and signed by: Uriah Moran MD CC: Jake Olmos DO Dictated Date/Time: 11/29/2020 (1707) Technologist: Luisana Mederos CTDI: 73.04 DLP: 2044.21 Trnscrpt: 11/29/2020 (170) [email or web address] [facility] NAME: [address] PHYS: [place], [place] [address] : 1965 AGE: 54 SEX: M LOC: B.ERS PHONE #: [phone] EXAM DATE: 11/29/2020 STATUS: REG ER FAX #: [phone] RAD #: D/C DT PAGE 2 Signed Report Patient Name: WILMER PARADA Unit No: [id number] EXAMS: CPT CODE: [id number] CT ANGIO HEAD [address] <Continued> Orig Print D/T: S: 11/29/2020 (1711) [facility] Pedro Pablo NAME: WILMER PARADA [address] [place] [address] Bl PHYS: RADAMES - NickolasJake Cronin, [place] [id number] : 1965 AGE: 54 SEX: M LOC: B.ERS PHONE #: [phone] EXAM DATE: 11/29/2020 STATUS: REG ER FAX #: [phone] RAD #: D/C DT PAGE 3 Signed Report- CT ANGIO [id number] 17:08:00 [facility] WIL[facility] : 1965 Sex: M Patient Name: WILMER PARADA Unit No: [id number] EXAMS: CPT CODE: [id number] CT ANGIO NECK [address]369 Dictation location: H37. CT ANGIOGRAM OF THE NECK AND HEAD WITH IV CONTRAST; MIP AND 3-D RECONSTRUCTIONS HISTORY: Left sided weakness COMPARISON: None TECHNIQUE: Axial CT images of the neck and head were obtained with coronal and/or sagittal reformatted views. MIP and/or 3-D reconstruction were obtained of the carotid arteries in the neck and [place] of [place]. Automated exposure control, iterative reconstruction [...] is limited. No definite occlusion or aneurysm. [facility] Pedro Pablo NAME: WILMER PARADA [address] [place] [address] PHYS: RADAMES - [place], [place] [address] : 1965 AGE: 54 SEX: M LOC: LISA PHONE #: [phone] EXAM DATE: 11/29/2020 STATUS: REG ER FAX #: [phone] RAD #: D/C DT PAGE 1 Signed Report (CONTINUED) Patient Name: WILMER PARADA Unit No: [id number] EXAMS: CPT CODE: [id number] CT ANGIO NECK [address] <Continued> at 1708 Reported and signed by: Uriah Moran MD CC: Jake Olmos DO Dictated Date/Time: 11/29/2020 (1708) Technologist: Luisana Mederos CTDI: 0 DLP: 0 Trnscrpt: 11/29/2020 (1708) [email or web address] EMILY Chamorro NAME: [address] PHYS: Jake Benjamin, [place] [address] : 1965 AGE: 54 SEX: M LOC: B.ERS PHONE #: [phone] EXAM DATE: 11/29/2020 STATUS: REG ER FAX #: [phone] RAD #: D/C DT PAGE 2 Signed Report Patient Name: WILMER PARADA Unit No: [id number] EXAMS: CPT CODE: [id number] CT ANGIO NECK [address] <Continued> Orig Print D/T: S: 11/29/2020 (1711) EMILY Chamorro NAME: [address] PHYS: RADAMES - Jake Olmos, [place] [address] : 1965 AGE: 54 SEX: M LOC: B.ERS PHONE #: [phone] EXAM DATE: 11/29/2020 STATUS: REG ER FAX #: [phone] RAD #: D/C DT PAGE 3 Signed Report- XR CHEST 1 [id number] 11:48:00 [facility] 1965 Sex: M Name: WILMER PARADA [facility] : 1965 Age/S: 54 / M [address] Unit #: [id number] Loc: [place] [address] Phys: Maximino Ham MD Acct: [id number] Dis Date: Status: REG ER PHONE #: [phone] Exam Date: 11/29/2020 1109 FAX #: Reason: chest pain, stroke symptoms EXAMS: CPT: [id number] XR CHEST 1 V 82274 Fluoro Time: DAP (Gy m2): Air Kerma [...] PAGE 1 Signed Report Name: WILMER PARADA [place] : 1965 Age/S: 54 / M [address] [facility] Unit #: [id number] Loc: [place] [address] Phys: Maximino Ham MD Acct: [id number] Dis Date: Status: REG ER PHONE #: [phone] Exam Date: 11/29/2020 1106 FAX #: Reason: chest pain, stroke symptoms EXAMS: CPT: [id number] XR CHEST 1 V 02041 Fluoro Time: DAP (Gy m2): Air Kerma (mGy): <Continued> Technologist: Bandar Tirado RT(R)(CT) Trnscb Date/Time: 11/29/2020 (1148) [email or web address] Orig Print D/T: S: 11/29/2020 (1152) PAGE 2 Signed Report- CT ABD PELVIS [id number] 11:20:00 [facility] : 1965 Sex: M Name: WILMER PARADA [facility] : 1965 Age/S: 54 / M [address] Unit #: [id number] Loc: [place] [address] Phys: Maximino Ham MD Acct: [id number] Dis Date: Status: REG ER PHONE #: [phone] Exam Date: 11/29/2020 1046 FAX #: Reason: rule out dissection EXAMS: CPT: [id number] CT ABD PELVIS W/CONT 96058 LOCATION: T18 EXAM: CT CHEST WITH CONTRAST [...] 1 Signed Report (CONTINUED) Name: WILMER PARADA [facility] : 1965 Age/S: 54 / M [address] Unit #: [id number] Loc: [place] [address] Phys: Maximino Ham MD Acct: [id number] Dis Date: Status: REG ER PHONE #: [phone] Exam Date: 11/29/2020 1046 FAX #: Reason: rule out dissection EXAMS: CPT: [id number] CT ABD PELVIS W/CONT 54963 <Continued> at 1120 Reported and signed by: Bill Lake M.D. CC: Maximino Ham MD Technologist:Gala Menard, RT(R); Nikole CTDI: DLP: Trnscb Date/Time: 11/29/2020 (1120) [email or web address] Orig Print D/T: S: 11/29/2020 (1123) PAGE 2 Signed Report- CT CHEST W/CONTRAST 2020-11-29 11:20:00 [facility] : 1965 Sex: M Name: WILMER PARADA [facility] : 1965 Age/S: 54 / M [address] Unit #: [id number] Loc: [place] [address] Phys: Maximino Ham MD Acct: [id number] Dis Date: Status: REG ER PHONE #: [phone] Exam Date: 11/29/2020 1056 FAX #: Reason: rule out dissection EXAMS: CPT: [id number] CT CHEST W/CONTRAST [address]4567 LOCATION: T18 EXAM: CT CHEST WITH CONTRAST [...] 1 Signed Report (CONTINUED) Name: WILMER PARADA [facility] [place] : 1965 Age/S: 54 / M [address] Unit #: [id number] Loc: [place] [address] Phys: Maximino Ham MD Acct: [id number] Dis Date: Status: REG ER PHONE #: [phone] Exam Date: 11/29/2020 1056 FAX #: Reason: rule out dissection EXAMS: CPT: [id number] CT CHEST W/CONTRAST 76040 <Continued> at 1120 Reported and signed by: Bill Lake M.D. CC: Maximino Ham MD Technologist:Gala Menard, RT(R); Nikole CTDI: DLP: Trnscb Date/Time: 11/29/2020 (1120) [email or web address] Orig Print D/T: S: 11/29/2020 (4673) PAGE 2 Signed Report- CT HEAD/BRAIN W/O CONT 2020-11-29 11:15:00 [facility] : 1965 Sex: M Name: WILMER PARADA [facility] : 1965 Age/S: 54 / M [address] Unit #: [id number] Loc: [place] [address] Phys: Maximino Ham MD Acct: [id number] Dis Date: Status: REG ER PHONE #: [phone] Exam Date: 11/29/2020 1045 FAX #: Reason: CVA symptoms EXAMS: CPT: [id number] CT HEAD/BRAIN W/O CONT 82655 EX AM: - CT HEAD/BRAIN W/O CONT [...] (1115) [email or web address] Orig Print D/T: S: 11/29/2020 (111) PAGE 1 Signed ReportCOMPREHENSIVE METABOLIC [id number] 10:03:00 Test Item Value Reference Range Interpretation [...] N code = ALKP) Completed by Nursing: [id number] 10:03:00 Test Item Value Reference Range Interpretation [...] yby method. Completed by Nursing: NOCBC W/AUTO [id number] 09:45:00 Test Item Value Reference Range Interpretation [...]
--- NOTE | 2021-07-28 12:20 | RAD REPORT ---
EXAM DESCRIPTION: RAD - Chest Pa And Lat (2 Views) - 07/28/2021 11:58 am CLINICAL HISTORY: Cough;Congestion Chest pain. COMPARISON: Chest Single View dated 07/12/2021; Chest Single View dated 07/08/2021; Chest Single View dated 04/12/2021; Chest Single View dated 03/11/2021 FINDINGS: The lungs are clear. The heart is significantly enlarged with a dual lead pacer/ defibrill ator device. No displaced fractures.
--- NOTE | 2021-07-28 12:28 | ER ---
Nurse's Notes [facility] Name: Bryan Watts Age: 55 yrs Sex: Male : 1965 Arrival Date: 07/28/2021 Time: 11:14 Bed Waiting Private MD: Jenn Jones Diagnosis: Coronavirus infection, unspecified Presentation: 07/28 11:37 Chief complaint: Patient states: Covid positive for at least 6 days. Has worsening ll1 cough and chest pain with cough. Cant sleep, subjective fever. Coronavirus screen: Vaccine status: Patient reports being unvaccinated. Client denies travel out of the [place] in the last 14 days. congestion, cough unrelated to allergies. Ebola Screen: Patient denies travel to an Ebola-affected area in the 21 days before illness onset. Resp Distress? Mild respiratory distress is noted. Initial Sepsis Screen: Does the patient meet any 2 criteria? No. Patient's initial sepsis screen is negative. Does the patient have a suspected source of infection? Yes: Productive cough/pneumonia. Risk Assessment: Do you want to hurt yourself or someone else? Patient reports no desire to harm self or others. Onset of symptoms was July 21, 2021. 11:37 Method Of Arrival: Wheelchair ll1 11:37 Acuity: GABBY 4 ll1 Triage Assessment: 11:40 General: Appears ill, Behavior is calm, cooperative, appropriate for age. Pain: ll1 Complains of pain in chest Quality of pain is described as aching, Aggravated by cough. Neuro: No deficits noted. Cardiovascular: No deficits noted. Respiratory: Reports cough that is pain with cough pain with respiration Airway is patent Trachea midline Respiratory effort is even, unlabored, Respiratory pattern is regular, symmetrical, Breath sounds are clear bilaterally. 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 Flu vaccine is not up to date. - Social history:: Smoking status: Patient denies any tobacco usage or history of. Screenin:40 Abuse screen: Denies threats or abuse. Nutritional screening: No deficits noted. ll1 Tuberculosis screening: No symptoms or risk factors identified. Fall Risk Total Wells Fall Scale indicates No Risk (0-24 pts). Assessment: 12:40 Reassessment: No changes from previously documented assessment. Patient and/or family ll1 updated on plan of care and expected duration. Pain level reassessed. Patient is alert, oriented x 3, equal unlabored respirations, skin warm/dry/pink. Cardiovascular: Capillary refill < 3 seconds Clubbing of nail beds is absent JVD is absent Patient's skin is warm and dry. Respiratory: Airway is patent Trachea midline Respiratory effort is even, unlabored, Respiratory pattern is regular, symmetrical, Breath sounds are clear bilaterally. 13:40 Reassessment: No changes from previously documented assessment. Patient and/or family ll1 updated on plan of care and expected duration. Pain level reassessed. Patient is alert, oriented x 3, equal unlabored respirations, skin warm/dry/pink. Vital Signs: 11:37 BP 175 / 105; Pulse 98; Resp 20; Temp 97.3; Pulse Ox 97% ; Weight 139.71 kg; Height 6 ll1 ft. 2 in. (187.96 cm); Pain 10/10; 11:37 Body Mass Index 39.54 (139.71 kg, 187.96 cm) ll1 ED Course: 11:14 Patient arrived in ED. mr 11:15 Jenn Jones is Private Physician. mr 11:39 Triage completed. ll1 11:40 Arm band placed on. ll1 11:40 Patient has correct armband on for positive identification. Cardiac monitoring not ll1 applicable on this patient. 11:40 No provider procedures requiring assistance completed. Patient did not have IV access ll1 during this emergency room visit. 11:41 Gala Mane FNP-C is PHCP. kb 11:41 Yared Rivera MD is Attending Physician. kb 11:58 Chest Pa And Lat (2 Views) XRAY In Process Unspecified. EDMS Administered Medications: No medications were administered Outcome: 12:27 Discharge ordered by . kb 13:48 Patient left the ED. ll1 13:48 Discharged to home ambulatory. ll1 13:48 Condition: stable 13:48 Discharge instructions given to patient, Instructed on discharge instructions, follow up and referral plans. Demonstrated understanding of instructions, follow-up care, Prescriptions given X 1. Signatures: Dispatcher [employer] EDMS Gala Mane FNP-C [employer] Jamir Ludy mr Mariella Ro, RN RN ll1 Corrections: (The following items were deleted from the chart) 11:40 11:37 BP 175 / 141; Pulse 98bpm; Resp 20bpm; Temp 97.3F; Pain 05/12; ll1 ll1 11:40 11:37 Acuity: GABBY 3 ll1 ll1 20:08 13:48 Discharge instructions given to patient, Instructed on discharge instructions, ll1 follow up and referral plans. Demonstrated understanding of instructions, follow-up care, ll1
--- NOTE | 2021-07-28 12:28 | EDPHYS ---
Physician Documentation [facility] Name: Bryan Watts Age: 55 yrs Sex: Male : 1965 Arrival Date: 07/28/2021 Time: 11:14 Bed Waiting Private MD: Jenn Jones ED Physician Yared Rivear HPI: 07/28 16:48 This 55 yrs old Black Male presents to ER via Wheelchair with complaints of Cough, kb Congestion. 16:48 The patient or guardian reports cough. Onset: The symptoms/episode began/occurred 7 kb day(s) ago. Severity of symptoms: At their worst the symptoms were moderate, in the emergency department the symptoms are unchanged. Modifying factors: The symptoms are alleviated by nothing, the symptoms are aggravated by nothing. Associated signs and symptoms: The patient has no apparent associated signs or symptoms. The patient has not experienced similar symptoms in the past. The patient has not recently seen a physician. Pt reports he has had covid since Thursday and the cough is getting worse. 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 Flu vaccine is not up to date. - Social history:: Smoking status: Patient denies any tobacco usage or history of. ROS: 16:47 Constitutional: Negative for fever, chills, and weight loss. kb 16:47 Respiratory: Positive for cough, Negative for dyspnea on exertion, hemoptysis, orthopnea, pleurisy, shortness of breath, sputum production, wheezing. 16:47 All other systems are negative. Exam: 16:47 Constitutional: This is a well developed, well nourished patient who is awake, alert, kb and in no acute distress. Head/Face: Normocephalic, atraumatic. ENT: Moist Mucous membranes Cardiovascular: Regular rate and rhythm with a normal S1 and S2. No gallops, murmurs, or rubs. No pulse deficits. Respiratory: Respirations even and unlabored. No increased work of breathing. Talking in full sentences Skin: Warm, dry with normal turgor. Normal color. MS/ Extremity: Pulses equal, no cyanosis. Neurovascular intact. Full, normal range of motion. Neuro: Awake and alert, GCS 15, oriented to person, place, time, and situation. Moves all extremities. Normal gait. Psych: Awake, alert, with orientation to person, place and time. Behavior, mood, and affect are within normal limits. Vital Signs: 11:37 BP 175 / 105; Pulse 98; Resp 20; Temp 97.3; Pulse Ox 97% ; Weight 139.71 kg; Height 6 ll1 ft. 2 in. (187.96 cm); Pain 10/10; 11:37 Body Mass Index 39.54 (139.71 kg, 187.96 cm) ll1 MDM: 11:41 Patient medically screened. kb 12:27 Data reviewed: vital signs, nurses notes. Data interpreted: Pulse oximetry: on room air kb is 97 %. Interpretation: normal. Counseling: I had a detailed discussion with the patient and/or guardian regarding: the historical points, exam findings, and any diagnostic results supporting the discharge/admit diagnosis, radiology results, the need for outpatient follow up, a family practitioner, to return to the emergency department if symptoms worsen or persist or if there are any questions or concerns that arise at home. 07/28 11:41 Order name: Chest Pa And Lat (2 Views) XRAY; Complete Time: 12:26 kb Administered Medications: No medications were administered Disposition Summary: 07/28/21 12:27 Discharge Ordered Location: Home kb Condition: Stable kb Diagnosis - Coronavirus infection, unspecified kb Followup: kb - With: Emergency Department - When: As needed - Reason: Worsening of condition Followup: kb - With: Private Physician - When: 2 - 3 days - Reason: Recheck today's complaints, Continuance of care, Re-evaluation by your physician Discharge Instructions: - Discharge Summary Sheet kb - Viral Respiratory Infection, [id number] kb - COVID-19 kb Forms: - Medication Reconciliation Form kb - Thank You Letter kb - Antibiotic Education kb - Prescription Opioid Use kb - Work release form eb Prescriptions: - Tessalon Perles 100 mg Oral Capsule - take 1 capsule by ORAL route every 8 hours As needed; 15 capsule; Refills: 0, kb Product Selection Permitted Signatures: Dispatcher [employer] Gala Wagoner, SUPERVISOR [employer] SIVAN-Ckb Jayjay, Lynsay, RN RN ll1
[2021-07-28 13:52] VITALS: BP 175/105; TEMP 97.3; O2SAT 97
== END 2021-07-28 13:48 | disposition home or self-care (01) ==
LOC: ER 11:11
DX: U07.1 COVID-19 (principal); I10 Essential (primary) hypertension; Z95.0 Presence of cardiac pacemaker
CPT/HCPCS: 71046; 99283

== ENCOUNTER 2021-09-10 09:24 | Observation (INO) | payer OTHER ==
--- OUTSIDE RECORDS SUMMARY | 2021-09-10 09:33 | XMS REPORT | Continuity of Care Document ---
:1965 Author Organization [facility] t Address [address] [place] [address] Care Team Providers Name Role Phone Robert BOYER, A Primary Care Physician Orlin JONES Attending Clinician Unavailable TAMEKA LESTER Attending Clinician Unavailable JANNY JORDAN Attending Clinician Unavailable Janny Cuellar Attending Clinician Tess Hernandez MD Attending Clinician [phone] Davide REYNAGA Attending Clinician Unavailable Davide Reynaga DO Attending Clinician Mikayal BAKER Attending Clinician Unavailable Jacky BOYER, Darian Attending Clinician Orlin Jones MD Attending Clinician Rolo BAKER, B Attending Clinician Unavailable Ruben BOYER Attending Clinician Faby CORTEZ Attending Clinician Kalen Soto MD Attending Clinician Eddie BOYER Attending Clinician Mj BEE Attending Clinician MJ Attending Clinician Unavailable JORDIN Attending Clinician Unavailable BRYON VASQUES Attending Clinician Unavailable ERICKA Attending Clinician Unavailable Wandy STOKES Attending Clinician Unavailable AUTUMN Attending Clinician Unavailable Attending Clinician Unavailable Tess HERNANDEZ Attending Clinician Unavailable JIMENEZ, R Attending Clinician Unavailable MULUGETA Attending Clinician Unavailable Orlin HEATH Attending Clinician Unavailable Orlin Juan Attending Clinician Unavailable Nav Bee MD Attending Clinician Kathie Lindsey MD Attending Clinician Artemio ALARCON, Wandy Attending Clinician Kathia Attending Clinician Unavailable Nasim Attending Clinician Unavailable WILBERTO K.HTej Attending Clinician Unavailable Nikole MANCUSO Attending Clinician Unavailable Nikole MANCUSO Attending Clinician Unavailable Tyler Attending Clinician Unavailable AMADO Attending Clinician Unavailable ARVIND Attending Clinician Unavailable ELENI Attending Clinician Unavailable Elisha Attending Clinician Unavailable ALAINA Attending Clinician Unavailable NAV BEE Attending Clinician Unavailable NAV BEE Attending Clinician Unavailable CARRI PARKS Attending Clinician Unavailable Physician, Primary or Family Admitting Clinician Unavailwoo Mccormack MD Admitting Clinician JORDIN Admitting Clinician Unavailable ERICKA Admitting Clinician Unavailable AUTUMN Admitting Clinician Unavailable JIMENEZ, R Admitting Clinician Unavailable Davide REYNAGA Admitting Clinician Unavailable MULUGETA Admitting Clinician Unavailable Tess HERNANDEZ Admitting Clinician Unavailable Orlin Juan Admitting Clinician Unavailable Santana BOYER Admitting Clinician Kathia Admitting Clinician Unavailable Tyler Admitting Clinician Unavailable Elisha Admitting Clinician Unavailable CARRI PARKS Admitting Clinician Unavailable Payers Payer Name Policy Type Policy Number Effective Date Expiration Date Kathie mckinley MEDICARE PART A \\T\\ [id number] 1986 B 00:00:00 [facility] [id number] 2021 MEDICAID 00:00:00 [place]ID [place] [id number] 2020 00:00:00 Problems Condition Condition Condition Status Onset Resolution Last Treating Co mments Source Name Details Category Date Date Treatment Clinician Date Acute on Acute on Disease Active Unive rs chronic chronic 1-20 ity of heart heart 00:00: [place] failure, failure, 00 Medica l unspecifie unspecifie Br anch d heart d heart failure failure type type SOB SOB Disease Active Univers (shortness (shortness 1-12 it y of of breath) of breath) [place] Congestive Congestive Disease Active U nivers heart heart 1-11 ity of failure, failure, 00:00: [place] unspecifie unspecifie 00 Me dical d HF d HF Branch chronicity chronicity , , unspecifie unspecifie d heart d heart failure failure type type COVID-19 COVID-19 Disease Active 2020-08 Unive rs virus virus 2-20 ity of infection infection 00:00: [place] [facility] Hypertensi Hypertensi Disease Active 2020-08 U nivers ve ve 2-20 ity of emergency emergency 00:00: [place] [facility] Troponin I Troponin I Disease Active 2020-08 U nivers above above 2-20 ity of reference reference 00:00: [place] range range 00 Medical Branch CHF with CHF with Disease Active 2020-08 Unive rs unknown unknown 1-29 ity of LVEF LVEF 00:00: [place] 00 Medical Branch Obesity Obesity Disease Active 2020-08 Univers (BMI (BMI 0-16 ity of 30-39.9) 30-39.9) 00:00: [place] 00 Medical Branch Acute on Acute on Disease Active 2021-1 Unive rs chronic chronic 0-03 ity of [...] U nivers 7-19 ity of 00:00: [place] [facility] Left-sided Left-sided Disease Active U nivers weakness weakness 5-17 ity of 00:00: [place] [facility] Stroke, Stroke, Disease Active Univers acute, acute, 5-17 ity of embolic embolic 00:00: [place] 00 Medical Branch Noncomplia Noncomplia Disease Active U nivers nce nce 5-11 ity of 00:00: [place] [facility] Acute CVA Acute CVA Disease Active Uni vers (cerebrova (cerebrova 3-24 it y of scular scular 00:00: [place] accident) accident) 00 [facility] Branch Dyslipidem Dyslipidem Disease Active [...] Medical 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 0- ity of mellitus mellitus 00:00: [place] with with 00 Medical complicati complicati Br anch on, on, without without long-term long-term current current use of use of insulin insulin Loss of Loss of Disease Active 2014-08 Univers one eye one eye 0- ity of 00:00: [place] [facility] CVA, old, CVA, old, 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 0- it y of s s 00:00: [place] [facility] Chronic Chronic Disease Active 2014-08 [facility] dental dental 0- ity of pain pain 00:00: [place] [id number] Medical Branch Allergies, Adverse Reactions, Alerts Allergy Allergy Status Severity Reaction(s) Onset Inactive Treating Comm ents Source Name Type Date Date Clinician No Known DA Active [facility] Allergie 4-30 Clear s 00:00: [place] 00 [facility] No Known DA Active U [facility] Allergie 4-30 Clear s 00:00: [place] 00 [facility] No Known DA Active [facility] Allergie 4-29 [place] 00:00: d 00 [facility] ISOSORBI DRUG Active Other-Cmnt Univ ers DE INGREDI 04-04 ity of MONONITR 00:00: [place] ATE 00 Medical Branch Isosorbi Propensi Active Other - See Severe U nivers de ty to comments 04-04 hypotensi ity o f Mononitr adverse 00:00: on, [place] ate reaction 00 likely Medical s from Branch severe LVH per Dr. Zamora. No Known DA Active U [facility] Allergie 4-10 [place] s 00:00: [address] Social History Social Habit Start Date Stop Date Quantity Comments Source Exposure to Not sure University of SARS-CoV-2 [place] [facility] (event) Branch History SDOH University o f Alcohol Frequency [place] [facility] History SDOH University o f Alcohol Std [place] [facility] Drinks Branch History SDOH University o f Alcohol Binge [place] [facility] Alcohol intake 2021-09-07 2021-09-07 Ex-drinker [facility] 00:00:00 00:00:00 (finding) [facility] Alcohol Comment 2021-05-22 2021-05-22 1 cup of whiskey Uni versity of 00:00:00 00:00:00 but last dirnk [place] [facility]i jennifer in December Branch Education 2020-04-30 2020-04-30 13 University of 00:00:00 00:00:00 [place] [facility] History SDOH 2019-08-22 2019-08-22 3 University o f Financial 00:00:00 00:00:00 [facility] Branch History [facility] Food 2019-08-22 2019-08-22 1 Univers ity of Worry 00:00:00 00:00:00 [facility] History [facility] Food 2019-08-22 2019-08-22 1 Univers ity of Scarcity 00:00:00 00:00:00 [place] [facility] History [facility] 2019-08-22 2019-08-22 2 University o f Transport Med 00:00:00 00:00:00 [place] [facility] al Branch History [facility] 2019-08-22 2019-08-22 2 University o f Transport Non-Med 00:00:00 00:00:00 [facility] [place] [facility] edical [place] Tobacco use and 2018-11-08 2018-11-08 Never used Universit y of exposure 00:00:00 00:00:00 [facility] Sex [birth year] At [birth year] Universit y of 00:00:00 00:00:00 [facility] Smoking Status Start Date Stop Date Source Never smoker [facility] Medications Ordered Filled Start Stop Current Ordering Indication Dosage Frequency Signature Comments Components Source Medication Medication Date Date Medication? Clinician (SIG) Name Name ondansetron 2021- No 4mg 4 mg, Slow Univers (ZOFRAN 09-09 IV Push, ity of (PF)) 23:15: 22:12 ONCE, 1 [place] injection 4 00 :00 dose, On Medi jennifer mg 09/09/21 Branch at 1715, MJ morpHINE 2021- No 4mg 4 mg, Slow Un dino injection 4 09-09 IV Push, ity of mg 23:15: 22:14 ONCE, 1 [place] 00 :00 dose, On Medical 09/09/21 Branch at 1715, STAT hydralAZINE 2021- No 10mg 10 mg, Uni vers (APRESOLINE 09-09 Slow IV ity of ) injection 22:15: 21:22 [place], [place] 10 mg 00 :00 ONCE, 1 Medical dose, On Branch [facility] 09/09/21 at 1615, MJ
In dication: Hypertensi ve Emergency furosemide 2021- No 40mg 40 mg, IV U nivers (LASIX) 09-09 Push, ity of injection 21:00: 20:17 ONCE, 1 [place] 40 mg 00 :00 dose, On Medical [facility] 09/09/21 Branch at 1500, MJ nitroglycer Yes .4mg 0.4 mg, Uni vers in 09-09 Sublingual ity of (NITROSTAT) 17:29: , Q5MIN [place] as sublingual 55 PRN, 3 Medical tablet 0.4 doses, Branch mg Starting on Thu09/09/21 at 1129, Until Discontinu ed, MJ, Chest pain cloNIDine 2021- No .1mg 0.1 mg, Univ ers (CATAPRES) 09-07 Oral, ity of tablet 0.1 19:15: 18:18 ONCE, 1 [place] as mg 00 :00 dose, On Medical 09/07/21 Branch at 1315, STAT iopamidol 2021- No [id number] 100mL 100 mL, Univers (ISOVUE 09-07 Intravenou ity o f 370-500 mL) 15:45: 15:42 s, ONCE, 1 [place] injection 00 :00 dose, On Medica l 100 mL 09/07/21 Branch at 0945, Routine omeprazole Yes 40mg Take 40 mg U nivers 40 mg 2-03 by mouth ity of capsule 13:43: daily. [address] omeprazole 0 Yes 40mg Take 40 mg U nivers 40 mg 2-03 by mouth ity of capsule 13:43: daily. [address] omeprazole Yes 40mg Take 40 mg U nivers 40 mg 2-03 by mouth ity of capsule 13:43: daily. [address] omeprazole 0 Yes 40mg Take 40 mg U nivers 40 mg 2-03 by mouth ity of capsule 13:43: daily. [address] omeprazole 0 Yes 40mg Take 40 mg U nivers 40 mg 2-03 by mouth ity of capsule 13:43: daily. [address] omeprazole 0 Yes 40mg Take 40 mg U nivers 40 mg 2-03 by mouth ity of capsule 13:43: daily. [address] Branch bumetanide Yes [id number] 2mg Take 1 U nivers 2 mg tablet 2-03 tablet by ity of 00:00: mouth 00 every Medical morning Branch and evening. carvediloL Yes [id number] 50mg Take 2 U nivers 25 mg 2-03 tablets by ity of tablet 00:00: mouth (two) Medical times [place] daily with meals. hydrALAZINE Yes [id number] 25mg Take 1 Univers 25 mg 2-03 tablet by ity of tablet 00:00: mouth (two) Medical times [place] daily. KCL 20 mEq Yes [id number] 20meq Take 1 Univers tablet 2-03 tablet by ity of 00:00: mouth daily. Medical Branch acetaminoph 0 Yes [id number] 1{tbl} Take 1 Un dino en-codeine 2-03 tablet by ity of 300-30 mg 00:00: mouth [place] tablet 00 needed Medical (take Branch daily as needed for severe right knee pain, s/p TKA, heart failure, unable to take NSAIDS). Indication s: chronic pain bumetanide Yes [id number] 2mg Take 1 U nivers 2 mg tablet 2-03 tablet by ity of 00:00: mouth every Medical morning Branch and evening. carvediloL 0 Yes [id number] 50mg Take 2 U nivers 25 mg 2-03 tablets by ity of tablet 00:00: mouth (two) Medical times [place] daily with meals. hydrALAZINE Yes [id number] 25mg Take 1 Univers 25 mg 2-03 tablet by ity of tablet 00:00: mouth (two) Medical times Branch daily. KCL 20 mEq 2022-0 Yes [id number] 20meq Take 1 Univers tablet 2-03 tablet by ity of 00:00: mouth [place] 00 daily. Medical Branch acetaminoph Yes [id number] 1{tbl} Take 1 Un dino en-codeine 2-03 tablet by ity of 300-30 mg 00:00: mouth [place] tablet 00 needed Medical (take Branch daily as needed for severe right knee pain, s/p TKA, heart failure, unable to take NSAIDS). Indication s: chronic pain bumetanide Yes [id number] 2mg Take 1 U nivers 2 mg tablet 2-03 tablet by ity of 00:00: mouth [place] 00 every Medical morning Branch and evening. carvediloL Yes [id number] 50mg Take 2 U nivers 25 mg 2-03 tablets by ity of tablet 00:00: mouth 2 00 (two) Medical times Branch daily with meals. hydrALAZINE Yes [id number] 25mg Take 1 Univers 25 mg 2-03 tablet by ity of tablet 00:00: mouth (two) Medical times Branch daily. KCL 20 mEq 0 Yes [id number] 20meq Take 1 Univers tablet 2-03 tablet by ity of 00:00: mouth [place] 00 daily. Medical Branch acetaminoph Yes [id number] 1{tbl} Take 1 Un dino en-codeine 2-03 tablet by ity of 300-30 mg 00:00: mouth as [place] tablet 00 needed Medical (take Branch daily as needed for severe right knee pain, s/p TKA, heart failure, unable to take NSAIDS). Indication s: chronic pain bumetanide 0 Yes [id number] 2mg Take 1 U nivers 2 mg tablet 2-03 tablet by ity of 00:00: mouth [place] 00 every Medical morning Branch and evening. carvediloL 0 Yes [id number] 50mg Take 2 U nivers 25 mg 2-03 tablets by ity of tablet 00:00: mouth 2 00 (two) Medical times Branch daily with meals. hydrALAZINE Yes [id number] 25mg Take 1 Univers 25 mg 2-03 tablet by ity of tablet 00:00: mouth 2 [place] 00 (two) Medical times Branch daily. KCL 20 mEq 2021-0 Yes [id number] 20meq Take 1 Univers tablet 2-03 tablet by ity of 00:00: mouth [place] 00 daily. Medical Branch acetaminoph Yes [id number] 1{tbl} Take 1 Un dino en-codeine 2-03 tablet by ity of 300-30 mg 00:00: mouth as [place] tablet 00 needed Medical (take Branch daily as needed for severe right knee pain, s/p TKA, heart failure, unable to take NSAIDS). Indication s: chronic pain bumetanide Yes [id number] 2mg Take 1 U nivers 2 mg tablet 2-03 tablet by ity of 00:00: mouth [place] 00 every Medical morning Branch and evening. carvediloL Yes [id number] 50mg Take 2 U nivers 25 mg 2-03 tablets by ity of tablet 00:00: mouth 2 (two) Medical times Branch daily with meals. hydrALAZINE Yes [id number] 25mg Take 1 Univers 25 mg 2-03 tablet by ity of tablet 00:00: mouth (two) Medical times Branch daily. KCL 20 mEq 0 Yes [id number] 20meq Take 1 Univers tablet 2-03 tablet by ity of 00:00: mouth [place] 00 daily. Medical Branch acetaminoph 0 Yes [id number] 1{tbl} Take 1 Un dino en-codeine 2-03 tablet by ity of 300-30 mg 00:00: mouth as [place] tablet 00 needed Medical (take Branch daily as needed for severe right knee pain, s/p TKA, heart failure, unable to take NSAIDS). Indication s: chronic pain bumetanide 0 Yes [id number] 2mg Take 1 U nivers 2 mg tablet 2-03 tablet by ity of 00:00: mouth [place] 00 every Medical morning Branch and evening. carvediloL 0 Yes [id number] 50mg Take 2 U nivers 25 mg 2-03 tablets by ity of tablet 00:00: mouth 2 00 (two) Medical times Branch daily with meals. hydrALAZINE Yes [id number] 25mg Take 1 Univers 25 mg 2-03 tablet by ity of tablet 00:00: mouth 2 00 (two) Medical times Branch daily. KCL 20 mEq 0 Yes [id number] 20meq Take 1 Univers tablet 2-03 tablet by ity of 00:00: mouth [place] 00 daily. Medical Branch acetaminoph 0 Yes [id number] 1{tbl} Take 1 Un dino en-codeine 2-03 tablet by ity of 300-30 mg 00:00: mouth as [place] tablet 00 needed Medical (take Branch daily as needed for severe right knee pain, s/p TKA, heart failure, unable to take NSAIDS). Indication s: chronic pain omeprazole 0 Yes 40mg Take 40 mg U nivers 40 mg 1-31 by mouth ity of capsule 13:41: daily. [address] Branch omeprazole 0 Yes 40mg Take 40 mg U nivers 40 mg 1-31 by mouth ity of capsule 13:41: daily. [address] omeprazole 0 Yes 40mg Take 40 mg U nivers 40 mg 1-31 by mouth ity of capsule 13:41: daily. [address] bumetanide Yes 3mg 3 mg, Univer s (BUMEX) 1-30 Oral, ity of tablet 3 mg 23:00: QAM+PM, [place] 00 First dose Medical (after Branch last modificati on) on 09/01/21 at 1700, Until Discontinu ed, Routine acetaminoph 0 Yes 650mg 650 mg, Un dino en 1-30 Oral, ity of (TYLENOL) 22:25: Q6HPRN, [place] tablet 650 48 Starting Medic al mg on [place] Branch 09/01/21 at 1625, Until Discontinu ed, Routine, Pain (scale 4-6) hydrALAZINE 0 Yes 50mg 50 mg, Univ ers (APRESOLINE 1-30 Oral, Q8H, it y of ) tablet 50 04:00: First dose [place] mg 00 (after Medical last Branch modificati on) on 08/31/21 at 2200, Until Discontinu ed, Routine bumetanide 2021-0 Yes [id number] 2mg Take 1 U nivers 2 mg tablet 1-30 tablet by ity of 00:00: mouth [place] 00 every Medical morning Branch and evening. bumetanide Yes [id number] 2mg Take 1 U nivers 2 mg tablet 1-30 tablet by ity of 00:00: mouth [place] 00 every Medical morning Branch and evening. bumetanide Yes [id number] 2mg Take 1 U nivers 2 mg tablet 1-30 tablet by ity of 00:00: mouth [place] 00 every Medical morning Branch and evening. bumetanide 2021- No 2mg 2 mg, Unive rs (BUMEX) 08-31 Oral, ity of tablet 2 mg 23:00: 20:55 QAM+PM, [place] :04 First dose Medical on [facility] Branch 08/31/21 at 1700, Until Discontinu ed, Routine clopidogreL Yes 75mg 75 mg, Univ ers (PLAVIX) 08-30 Oral, ity of tablet 75 15:00: DAILY, [place] mg 00 First dose Medical on [facility] 08/30/21 at 0900, Until Discontinu ed, Routine aspirin EC Yes 81mg 81 mg, Unive rs tablet 81 08-30 Oral, ity of mg 15:00: DAILY, [place] 00 First dose Medical on [facility] 08/30/21 at 0900, Until Discontinu ed, Routine atorvastati Yes 80mg 80 mg, Univ ers n (LIPITOR) 08-30 Oral, QHS, it y of tablet 80 03:00: First dose [place] mg 00 on [facility] Medical 08/29/21 at Branch 2100, Until Discontinu ed, Routine bumetanide 2021- No 2mg 2 mg, Slow Univers (BUMEX) 08-30 IV Push, ity of injection 2 02:00: 22:53 BID, First [place] mg 00 :36 dose on Medical [facility] Branch 08/29/21 at 2000, Until Discontinu ed, Routine carvediloL Yes 50mg 50 mg, Unive rs (COREG) 08-29 Oral, BID ity of tablet 50 17:00: MEALS, [place] mg 00 First dose Medical on [facility] Branch 08/29/21 at 1100, Until Discontinu ed, Routine hydrALAZINE 2021- No 25mg 25 mg, Uni vers (APRESOLINE 08-29 Oral, Q8H, i ty of ) tablet 25 17:00: 19:47 First dose [place] mg 00 :19 on [facility] Medical 08/29/21 at Branch 1100, Until Discontinu ed, Routine enoxaparin Yes 30mg 30 mg, Unive rs (LOVENOX) 08-29 Subcutaneo ity of injection 15:00: us, DAILY, [place] 30 mg 00 First dose Medical on [facility] Branch 08/29/21 at 0900, Until Discontinu ed, Routine KCL 2021- No 20meq 20 mEq, Univers (KLOR-CON 08-29 Oral, ity of M20) tablet 11:00: 11:18 ONCE, 1 [place] 20 mEq 00 :00 dose, On Medical [facility] Branch 08/29/21 at 0500, Routine magnesium 2021- No 2g 2 g, IV Univ ers sulfate in 08-29 Piggyback, it y of water 2 11:00: 11:17 ONCE, 1 [place] gram/50 mL 00 :00 dose, On Medic al (4 %) [facility] Branch infusion 2 08/29/21 at g 0500, Routine omeprazole Yes 40mg Take 40 mg U nivers 40 mg 08-29 by mouth ity of capsule 10:52: daily. [address] furosemide 2021- No 40mg 40 mg, Univ ers (LASIX) 08-29 Slow IV ity of injection 05:30: 04:36 Push, [place] 40 mg 00 :00 ONCE, 1 Medical dose, On Branch Thu08/28/21 at 2330, Routine morpHINE 2021- No 2mg 2 mg, Slow Un dino injection 2 08-29 IV Push, ity of mg 04:24: 17:48 Q6HPRN, [place] 50 :11 Starting Medical on Thu Branch 08/28/21 at 2224, Until 09/01/21 at 1148, Routine, Pain (scale 7-10) hydralAZINE Yes 10mg 10 mg, Univ ers (APRESOLINE 08-29 Slow IV ity o f ) injection 04:20: Push, [place] 10 mg 45 Q6HPRN, Medical Starting Branch on Thu08/28/21 at 2220, Until Discontinu ed, STAT, SBP > 140 mmHg
In dication: Hypertensi ve Emergency cloNIDine 2021- No .2mg 0.2 mg, Univ ers (CATAPRES) 08-29 Oral, ity of tablet 0.2 02:45: 01:44 ONCE, 1 [place] as mg 00 :00 dose, On Medical Thu Branch 08/28/21 at 2045, STAT aspirin 2021- No 325mg 325 mg, Unive rs tablet 325 08-29 Oral, ity of mg 02:00: 01:02 ONCE, 1 [place] 00 :00 dose, On Medical Wed Branch 08/28/21 at 2000, STAT ondansetron 2021- No 4mg 4 mg, Slow Univers (ZOFRAN 08-29 IV Push, ity of (PF)) 01:30: 00:51 ONCE, 1 [place] injection 4 00 :00 dose, On Medi jennifer mg Thu08/28/21 at 1930, MJ morpHINE 2021- No 4mg 4 mg, Slow Un dino injection 4 08-29 IV Push, ity of mg 01:30: 00:51 ONCE, 1 [place] 00 :00 dose, On Medical Wed Branch 08/28/21 at 1930, STAT hydralAZINE 2021- No 20mg 20 mg, Uni vers (APRESOLINE 08-29 Slow IV ity of ) injection 01:30: 00:24 [place], [place] 20 mg 00 :00 ONCE, 1 Medical dose, On Branch 08/28/21 at 1930, STAT
In dication: Hypertensi ve Emergency nitroglycer 2021- No [id number] .4mg U nivers in 08-29 ity of (NITROSTAT) 00:15: 23:43 [place] sublingual 00 :00 Medical tablet 0.4 Branch mg cloNIDine 2021- No [id number] .2mg Uni vers (CATAPRES) 08-29 ity of tablet 0.2 00:15: 23:19 [place] mg 00 :36 Medical Branch nitroglycer 2021- No [id number] .4mg 0.4 mg, Univers in 08-29 Sublingual ity of (NITROSTAT) 00:15: 23:43 , ONCE, 1 [place] sublingual 00 :00 dose, On Medic al tablet 0.4 Wed Branch mg 08/28/21 at 1815, Routine nitroglycer 2021- No [id number] .4mg U nivers in 08-29 ity of (NITROSTAT) 00:15: 23:43 [place] sublingual 00 :00 Medical tablet 0.4 Branch mg omeprazole Yes 40mg Take 40 mg U nivers 40 mg -24 by mouth ity of capsule 10:52: daily. [place] 38 Medical Branch hydrALAZINE 2021- Yes [id number] 25mg Take 1 Univers 25 mg -24 -24 tablet by ity of tablet 00:00: 05:59 mouth 2 [place] 00 :00 (two) Medical times [place] daily for 30 days. KCL 20 mEq 2021- Yes [id number] 20meq Take 1 Univers tablet -24 -24 tablet by ity of 00:00: 05:59 mouth [place] 00 :00 daily for Medical 30 days. Branch bumetanide 2021- Yes [id number] 1mg Take 1 Univers 1 mg tablet -26 09-24 tablet by it y of 00:00: 05:59 mouth [place] 00 :00 every Medical morning Branch and evening for 30 days. carvediloL 2021- Yes [id number] 50mg Take 2 Univers 25 mg -24 -24 tablets by ity of tablet 00:00: 05:59 mouth 2 [place] 00 :00 (two) Medical times Branch daily with meals for 30 days. hydrALAZINE 2021- Yes [id number] 25mg Take 1 Univers 25 mg 1-24 02-24 tablet by ity of tablet 00:00: 05:59 mouth 2 [place] 00 :00 (two) Medical times [place] daily for 30 days. KCL 20 mEq 2021- Yes [id number] 20meq Take 1 Univers tablet -24 02-24 tablet by ity of 00:00: 05:59 mouth [place] 00 :00 daily for Medical 30 days. Branch bumetanide 2021- Yes [id number] 1mg Take 1 Univers 1 mg tablet 08-26-24 tablet by it y of 00:00: 05:59 mouth [place] 00 :00 every Medical morning Branch and evening for 30 days. carvediloL 2021- Yes [id number] 50mg Take 2 Univers 25 mg 1-24 02-24 tablets by ity of tablet 00:00: 05:59 mouth 2 [place] 00 :00 (two) Medical times Branch daily with meals for 30 days. hydrALAZINE 2021- Yes [id number] 25mg Take 1 Univers 25 mg 1-24 -24 tablet by ity of tablet 00:00: 05:59 mouth 2 [place] 00 :00 (two) Medical times Branch daily for 30 days. KCL 20 mEq 2021- Yes [id number] 20meq Take 1 Univers tablet -26 09-24 tablet by ity of 00:00: 05:59 mouth [place] 00 :00 daily for Medical 30 days. Branch carvediloL 2021- Yes [id number] 50mg Take 2 Univers 25 mg 1-24 -24 tablets by ity of tablet 00:00: 05:59 mouth 2 [place] 00 :00 (two) Medical times Branch daily with meals for 30 days. hydrALAZINE 2021- Yes [id number] 25mg Take 1 Univers 25 mg 1-24 -24 tablet by ity of tablet 00:00: 05:59 mouth 2 [place] 00 :00 (two) Medical times Branch daily for 30 days. KCL 20 mEq 2021- Yes [id number] 20meq Take 1 Univers tablet 08-26-24 tablet by ity of 00:00: 05:59 mouth [place] 00 :00 daily for Medical 30 days. Branch carvediloL 2021- Yes [id number] 50mg Take 2 Univers 25 mg 1-24 02-24 tablets by ity of tablet 00:00: 05:59 mouth 2 [place] 00 :00 (two) Medical times Branch daily with meals for 30 days. hydrALAZINE 2021- Yes [id number] 25mg Take 1 Univers 25 mg 1-24 02-24 tablet by ity of tablet 00:00: 05:59 mouth 2 [place] 00 :00 (two) Medical times Branch daily for 30 days. KCL 20 mEq 2021- Yes [id number] 20meq Take 1 Univers tablet 08-26 tablet by ity of 00:00: 05:59 mouth [place] 00 :00 daily for Medical 30 days. Branch carvediloL 2021- Yes [id number] 50mg Take 2 Univers 25 mg -26 09- tablets by ity of tablet 00:00: 05:59 mouth 2 [place] 00 :00 (two) Medical times Branch daily with meals for 30 days. bumetanide 2021- No [id number] 1mg Take 1 Univers 1 mg tablet 08-26 tablet by it y of 00:00: 00:00 mouth [place] 00 :00 every Medical morning Branch and evening for 30 days. acetaminoph 2021- Yes [id number] 650mg Take 2 Univers en 325 mg -02 01-07 tablets by ity of tablet 00:00: 05:59 mouth [place] 00 :00 every 6 Medical (six) Branch hours as needed for Pain (scale 1-3) or Temp > 38.5 C for up to 30 days. acetaminoph 2021- Yes [id number] 650mg Take 2 Univers en 325 mg - 02-07 tablets by ity of tablet 00:00: 05:59 mouth [place] 00 :00 every 6 Medical (six) Branch hours as needed for Pain (scale 1-3) or Temp > 38.5 C for up to 30 days. acetaminoph 2021- Yes [id number] 650mg Take 2 Univers en 325 mg - 02-07 tablets by ity of tablet 00:00: 05:59 mouth [place] 00 :00 every 6 Medical (six) Branch hours as needed for Pain (scale 1-3) or Temp > 38.5 C for up to 30 days. acetaminoph 2021- Yes [id number] 650mg Take 2 Univers en 325 mg -07 02-07 tablets by ity of tablet 00:00: 05:59 mouth [place] 00 :00 every 6 Medical (six) Branch hours as needed for Pain (scale 1-3) or Temp > 38.5 C for up to 30 days. acetaminoph 2021- Yes [id number] 650mg Take 2 Univers en 325 mg 08-09 02-07 tablets by ity of tablet 00:00: 05:59 mouth [place] 00 :00 every 6 Medical (six) Branch hours as needed for Pain (scale 1-3) or Temp > 38.5 C for up to 30 days. acetaminoph 2021- Yes [id number] 650mg Take 2 Univers en 325 mg 08-09-07 tablets by ity of tablet 00:00: 05:59 mouth [place] 00 :00 every 6 Medical (six) Branch hours as needed for Pain (scale 1-3) or Temp > 38.5 C for up to 30 days. acetaminoph 2021- Yes [id number] 650mg Take 2 Univers en 325 mg 08-09- tablets by ity of tablet 00:00: 05:59 mouth [place] 00 :00 every 6 Medical (six) Branch hours as needed for Pain (scale 1-3) or Temp > 38.5 C for up to 30 days. acetaminoph 2021- Yes [id number] 650mg Take 2 Univers en 325 mg 08-09-07 tablets by ity of tablet 00:00: 05:59 mouth [place] 00 :00 every 6 Medical (six) Branch hours as needed for Pain (scale 1-3) or Temp > 38.5 C for up to 30 days. cholecalcif 2020-08 Yes [id number] 1000U Take 1 Univers mika, 2-22 tablet by ity of vitamin D3, 00:00: mouth [place] 25 mcg 00 daily. Medical (1,000 Branch unit) tablet cholecalcif 2020-08 Yes [id number] 1000U Take 1 Univers mika, 2-22 tablet by ity of vitamin D3, 00:00: mouth [place] 25 mcg 00 daily. Medical (1,000 Branch unit) tablet cholecalcif 2020- Yes [id number] 1000U Take 1 Univers mika, 2-22 tablet by ity of vitamin D3, 00:00: mouth [place] 25 mcg 00 daily. Medical (1,000 Branch unit) tablet cholecalcif 2020-08 Yes [id number] 1000U Take 1 Univers mika, 2-22 tablet by ity of vitamin D3, 00:00: mouth [place] 25 mcg 00 daily. Medical (1,000 Branch unit) tablet cholecalcif 2020-08 Yes [id number] 1000U Take 1 Univers mika, 2-22 tablet by ity of vitamin D3, 00:00: mouth [place] 25 mcg 00 daily. Medical (1,000 Branch unit) tablet cholecalcif 2020-08 Yes [id number] 1000U Take 1 Univers mika, 2-22 tablet by ity of vitamin D3, 00:00: mouth [place] 25 mcg 00 daily. Medical (1,000 Branch unit) tablet cholecalcif 2020-08 Yes [id number] 1000U Take 1 Univers mika, 2-22 tablet by ity of vitamin D3, 00:00: mouth [place] 25 mcg 00 daily. Medical (1,000 Branch unit) tablet cholecalcif 2020-08 Yes [id number] 1000U Take 1 Univers mika, 2-22 tablet by ity of vitamin D3, 00:00: mouth [place] 25 mcg 00 daily. Medical (1,000 Branch unit) tablet cholecalcif 2020-08 Yes [id number] 1000U Take 1 Univers mika, 2-22 tablet by ity of vitamin D3, 00:00: mouth [place] 25 mcg 00 daily. Medical (1,000 Branch unit) tablet cholecalcif 2020-08 Yes [id number] 1000U Take 1 Univers mika, 2-22 tablet by ity of vitamin D3, 00:00: mouth [place] 25 mcg 00 daily. Medical (1,000 Branch unit) tablet cholecalcif 2020-08 Yes [id number] 1000U Take 1 Univers mika, 2-22 tablet by ity of vitamin D3, 00:00: mouth [place] 25 mcg 00 daily. Medical (1,000 Branch unit) tablet clopidogreL 2020-08 Yes [id number] 75mg Take 1 Univers 75 mg 0-22 tablet by ity of tablet 00:00: mouth [place] 00 daily. Medical Branch atorvastati 2020-08 Yes [id number] 80mg Take 1 Univers n 80 mg 0-22 tablet by ity of tablet 00:00: mouth at [place] 00 bedtime. Medical Branch clopidogreL 2020-08 Yes [id number] 75mg Take 1 Univers 75 mg 0-22 tablet by ity of tablet 00:00: mouth [place] 00 daily. Medical Branch atorvastati 2020-08 Yes [id number] 80mg Take 1 Univers n 80 mg 0-22 tablet by ity of tablet 00:00: mouth at [place] 00 bedtime. Medical Branch clopidogreL 2020-08 Yes [id number] 75mg Take 1 Univers 75 mg 0-22 tablet by ity of tablet 00:00: mouth [place] 00 daily. Medical Branch atorvastati 2020-08 Yes [id number] 80mg Take 1 Univers n 80 mg 0-22 tablet by ity of tablet 00:00: mouth at [place] 00 bedtime. Medical Branch clopidogreL 2020-08 Yes [id number] 75mg Take 1 Univers 75 mg 0-22 tablet by ity of tablet 00:00: mouth [place] 00 daily. Medical Branch atorvastati 2020-08 Yes [id number] 80mg Take 1 Univers n 80 mg 0-22 tablet by ity of tablet 00:00: mouth at [place] 00 bedtime. Medical Branch clopidogreL 2020-08 Yes [id number] 75mg Take 1 [facility] 75 mg 0-22 tablet by ity of tablet 00:00: mouth [place] 00 daily. Medical Branch atorvastati 2020-08 Yes [id number] 80mg Take 1 Univers n 80 mg 0-22 tablet by ity of tablet 00:00: mouth at [place] 00 bedtime. Medical Branch clopidogreL 2020-08 Yes [id number] 75mg Take 1 [facility] 75 mg 0-22 tablet by ity of tablet 00:00: mouth [place] 00 daily. Medical Branch atorvastati 2020-08 Yes [id number] 80mg Take 1 Univers n 80 mg 0-22 tablet by ity of tablet 00:00: mouth at [place] 00 bedtime. Medical Branch clopidogreL 2020-08 Yes [id number] 75mg Take 1 [facility] 75 mg 0-22 tablet by ity of tablet 00:00: mouth [place] 00 daily. Medical Branch atorvastati 2020-08 Yes [id number] 80mg Take 1 Univers n 80 mg 0-22 tablet by ity of tablet 00:00: mouth at [place] 00 bedtime. Medical Branch clopidogreL 2020-08 Yes [id number] 75mg Take 1 [facility] 75 mg 0-22 tablet by ity of tablet 00:00: mouth [place] 00 daily. Medical Branch atorvastati 2020-08 Yes [id number] 80mg Take 1 Univers n 80 mg 0-22 tablet by ity of tablet 00:00: mouth at [place] 00 bedtime. Medical Branch clopidogreL 2020-08 Yes [id number] 75mg Take 1 [facility] 75 mg 0-22 tablet by ity of tablet 00:00: mouth [place] 00 daily. Medical Branch atorvastati 2020-08 Yes [id number] 80mg Take 1 Univers n 80 mg 0-22 tablet by ity of tablet 00:00: mouth at [place] 00 bedtime. Medical Branch clopidogreL 2020-08 Yes [id number] 75mg Take 1 [facility] 75 mg 0-22 tablet by ity of tablet 00:00: mouth [place] 00 daily. Medical Branch atorvastati 2020-08 Yes [id number] 80mg Take 1 Univers n 80 mg 0-22 tablet by ity of tablet 00:00: mouth at [place] 00 bedtime. Medical Branch clopidogreL 2020-08 Yes [id number] 75mg Take 1 Univers 75 mg 0-22 tablet by ity of tablet 00:00: mouth [place] 00 daily. Medical Branch atorvastati 2020-08 Yes [id number] 80mg Take 1 Univers n 80 mg 0-22 tablet by ity of tablet 00:00: mouth at [place] 00 bedtime. Medical Branch aspirin 81 0 Yes [id number] 81mg Take 1 U nivers mg EC 9-08 tablet by ity of tablet 00:00: mouth [place] 00 daily. Medical Branch aspirin 81 2020-0 Yes [id number] 81mg Take 1 U nivers mg EC 9-08 tablet by ity of tablet 00:00: mouth [place] 00 daily. Medical Branch aspirin 81 2020-0 Yes [id number] 81mg Take 1 U nivers mg EC 9-08 tablet by ity of tablet 00:00: mouth [place] 00 daily. Medical Branch aspirin 81 2020-0 Yes [id number] 81mg Take 1 U nivers mg EC 9-08 tablet by ity of tablet 00:00: mouth [place] 00 daily. Medical Branch aspirin 81 2020-0 Yes [id number] 81mg Take 1 U nivers mg EC 9-08 tablet by ity of tablet 00:00: mouth [place] 00 daily. Medical Branch aspirin 81 2020-0 Yes [id number] 81mg Take 1 U nivers mg EC 9-08 tablet by ity of tablet 00:00: mouth [place] 00 daily. Medical Branch aspirin 81 2020-0 Yes [id number] 81mg Take 1 U nivers mg EC 9-08 tablet by ity of tablet 00:00: mouth [place] 00 daily. Medical Branch aspirin 81 1-0 Yes [id number] 81mg Take 1 U nivers mg EC 9-08 tablet by ity of tablet 00:00: mouth [place] 00 daily. Medical Branch aspirin 81 2021-0 Yes [id number] 81mg Take 1 U nivers mg EC 9-08 tablet by ity of tablet 00:00: mouth [place] 00 daily. Medical Branch aspirin 81 1-0 Yes [id number] 81mg Take 1 U nivers mg EC 9-08 tablet by ity of tablet 00:00: mouth [place] 00 daily. Medical Branch aspirin 81 2021-0 Yes [id number] 81mg Take 1 U nivers mg EC 9-08 tablet by ity of tablet 00:00: mouth [place] 00 daily. Medical Branch nitroglycer 2020-[id number] 1 Univers in 0.4 mg 5-28 tablet ity of sublingual 00:00: under the [place] tablet 00 tongue Medical every 5 Branch (five) minutes as needed for Chest pain. nitroglycer 2020-[id number] 1 Univers in 0.4 mg 5-28 tablet ity of sublingual 00:00: under the [place] tablet 00 tongue Medical every 5 Branch (five) minutes as needed for Chest pain. nitroglycer 2020-[id number] 1 Univers in 0.4 mg 5-28 tablet ity of sublingual 00:00: under the [place] tablet 00 tongue Medical every 5 Branch (five) minutes as needed for Chest pain. nitroglycer 2020-[id number] 1 Univers in 0.4 mg 5-28 tablet ity of sublingual 00:00: under the [place] tablet 00 tongue Medical every 5 Branch (five) minutes as needed for Chest pain. nitroglycer 2020-[id number] 1 Univers in 0.4 mg 5-28 tablet ity of sublingual 00:00: under the [place] tablet 00 tongue Medical every 5 Branch (five) minutes as needed for Chest pain. nitroglycer 2020-[id number] 1 Univers in 0.4 mg 5-28 tablet ity of sublingual 00:00: under the [place] tablet 00 tongue Medical every 5 Branch (five) minutes as needed for Chest pain. nitroglycer 2020-[id number] 1 Univers in 0.4 mg 5-28 tablet ity of sublingual 00:00: under the [place] tablet 00 tongue Medical every 5 Branch (five) minutes as needed for Chest pain. nitroglycer 2020-[id number] 1 Univers in 0.4 mg 5-28 tablet ity of sublingual 00:00: under the [place] tablet 00 tongue Medical every 5 Branch (five) minutes as needed for Chest pain. nitroglycer 2020-[id number] 1 Univers in 0.4 mg 5-28 tablet ity of sublingual 00:00: under the [place] tablet 00 tongue Medical every 5 Branch (five) minutes as needed for Chest pain. nitroglycer 2020-[id number] 1 Univers in 0.4 mg 5-28 tablet ity of sublingual 00:00: under the [place] tablet 00 tongue Medical every 5 Branch (five) minutes as needed for Chest pain. nitroglycer 2020-[id number] 1 Univers in 0.4 mg 5-28 tablet ity of sublingual 00:00: under the [place] tablet 00 tongue Medical every 5 Branch (five) minutes as needed for Chest pain. Immunizations Ordered Filled Immunization Date Status Comments [facility] e Immunization Name Name SARS-COV-2 COVID-19 2021-08-02 Completed Unive rsity of PFIZER VACCINE 00:00:00 [facility] SARS-COV-2 COVID-19 2021-08-02 Completed Unive rsity of PFIZER VACCINE 00:00:00 [facility] SARS-COV-2 COVID-19 2021-08-02 Completed Unive rsity of PFIZER VACCINE 00:00:00 [facility] SARS-COV-2 COVID-19 2021-08-02 Completed Unive rsity of PFIZER VACCINE 00:00:00 [facility] SARS-COV-2 COVID-19 2021-08-02 Completed Unive rsity of PFIZER VACCINE 00:00:00 [facility] SARS-COV-2 COVID-19 2021-08-02 Completed Unive rsity of PFIZER VACCINE 00:00:00 [facility] SARS-COV-2 COVID-19 2021-08-02 Completed Unive rsity of PFIZER VACCINE 00:00:00 [facility] SARS-COV-2 COVID-19 2021-08-02 Completed Unive rsity of PFIZER VACCINE 00:00:00 [facility] SARS-COV-2 COVID-19 2021-08-02 Completed Unive rsity of PFIZER VACCINE 00:00:00 [facility] SARS-COV-2 COVID-19 2021-08-02 Completed Unive rsity of PFIZER VACCINE 00:00:00 [facility] SARS-COV-2 COVID-19 2021-08-02 Completed Unive rsity of PFIZER VACCINE 00:00:00 [facility] Influenza Virus 2020-09-24 Completed Universit y of Vaccine Quad .5 mL 00:00:00 [place] [facility] IM 6+ MO Branch Influenza Virus 2020-09-24 Completed Universit y of Vaccine Quad .5 mL 00:00:00 [place] [facility] IM 6+ MO Branch Influenza Virus 2020-09-24 Completed Universit y of Vaccine Quad .5 mL 00:00:00 [place] [facility] IM 6+ MO Branch Influenza Virus 2020-09-24 Completed Universit y of Vaccine Quad .5 mL 00:00:00 [place] [facility] IM 6+ MO Branch Influenza Virus 2020-09-24 Completed Universit y of Vaccine Quad .5 mL 00:00:00 [place] [facility] IM 6+ MO Branch Influenza Virus [...] y of Vaccine Quad .5 mL 00:00:00 [place] [facility] IM 6+ MO Branch Influenza Virus 2019-06-14 Completed Universit y of Vaccine Quad .5 mL 00:00:00 [place] [facility] IM 6+ MO Branch Influenza Virus 2019-06-14 Completed Universit y of Vaccine Quad .5 mL 00:00:00 [place] [facility] IM 6+ MO Branch Influenza Virus 2019-06-14 Completed Universit y of Vaccine Quad .5 mL 00:00:00 [place] [facility] IM 6+ MO Branch Influenza Virus 2018-07-07 Completed Universit y of Vaccine Quad IM 3+ 00:00:00 [facility] Influenza Virus 2018-07-07 Completed Universit y of Vaccine Quad IM 3+ 00:00:00 [facility] Influenza Virus 2018-07-07 Completed Universit y of Vaccine Quad IM 3+ 00:00:00 [facility] Influenza Virus 2018-07-07 Completed Universit y of Vaccine Quad IM 3+ 00:00:00 [facility] Influenza Virus 2018-07-07 Completed Universit y of Vaccine Quad IM 3+ 00:00:00 [facility] Influenza Virus 2018-07-07 Completed Universit y of Vaccine Quad IM 3+ 00:00:00 [facility] Influenza Virus 2018-07-07 Completed Universit y of Vaccine Quad IM 3+ 00:00:00 [facility] Influenza Virus 2018-07-07 Completed Universit y of Vaccine Quad IM 3+ 00:00:00 [facility] Influenza Virus 2018-07-07 Completed Universit y of Vaccine Quad IM 3+ 00:00:00 [facility] Influenza Virus 2018-07-07 Completed Universit y of Vaccine Quad IM 3+ 00:00:00 [facility] Influenza Virus 2018-07-07 Completed Universit y of Vaccine Quad IM 3+ 00:00:00 [facility] Td 2017-08-01 Completed University of 00:00:00 [facility] Td 2017-08-01 Completed University of 00:00:00 [facility] Td 2017-08-01 Completed University of 00:00:00 [facility] Td 2017-08-01 Completed University of 00:00:00 [facility] Td 2017-08-01 Completed University of 00:00:00 [facility] Td 2017-08-01 Completed University of 00:00:00 [facility] Td 2017-08-01 Completed University of 00:00:00 [facility] Td 2017-08-01 Completed University of 00:00:00 [facility] Td 2017-08-01 Completed University of 00:00:00 [facility] Td 2017-08-01 Completed University of 00:00:00 [facility] Td 2017-08-01 Completed University of 00:00:00 [facility] Influenza Virus 2016-05-22 Completed Universit y of Vaccine Quad IM 3+ 00:00:00 [facility] Influenza Virus 2016-05-22 Completed Universit y of Vaccine Quad IM 3+ 00:00:00 [facility] Influenza Virus 2016-05-22 Completed Universit y of Vaccine Quad IM 3+ 00:00:00 [facility] Influenza Virus 2016-05-22 Completed Universit y of Vaccine Quad IM 3+ 00:00:00 [facility] Influenza Virus 2016-05-22 Completed Universit y of Vaccine Quad IM 3+ 00:00:00 [facility] Influenza Virus 2016-05-22 Completed Universit y of Vaccine Quad IM 3+ 00:00:00 [facility] Influenza Virus 2016-05-22 Completed Universit y of Vaccine Quad IM 3+ 00:00:00 [facility] Influenza Virus 2016-05-22 Completed Universit y of Vaccine Quad IM 3+ 00:00:00 [facility] Influenza Virus 2016-05-22 Completed Universit y of Vaccine Quad IM 3+ 00:00:00 [facility] Influenza Virus 2016-05-22 Completed Universit y of Vaccine Quad IM 3+ 00:00:00 [facility] Influenza Virus 2016-05-22 Completed Universit y of Vaccine Quad IM 3+ 00:00:00 [facility] Pneumococcal 2015-08-31 Completed University o f Polysaccharide, 00:00:00 [place] [facility] ical PPSV23 (PNEUMOVAX) Branch Pneumococcal 2015-08-31 Completed University o f Polysaccharide, 00:00:00 [place] [facility] ical PPSV23 (PNEUMOVAX) Branch Pneumococcal 2015-08-31 [...] Universit y of Vaccine Quad IM 00:00:00 [place] [facility] ical Multi-dose 6+ MO Branch Influenza Virus 2015-05-25 Completed Universit y of Vaccine Quad IM 00:00:00 [place] [facility] ical Multi-dose 6+ MO Branch Vital Signs Vital Name Observation Time Observation Value Comments Source Systolic blood 2021-09-09 22:06:00 150 mm[Hg] Univer sity of pressure [place] [facility] Diastolic blood 2021-09-09 22:06:00 100 mm[Hg] Unive rsity of pressure [place] [facility] Heart rate 2021-09-09 22:06:00 91 /min Universi ty of [place] [facility] Respiratory rate 2021-09-09 22:06:00 19 /min Univ ersity of [place] [facility] Oxygen saturation in 2021-09-09 22:06:00 99 /min University of Arterial blood by [facility] [place] [facility] jennifer Pulse oximetry Branch Body temperature 2021-09-09 17:05:00 37.39 Sara Univ ersity of [place] [facility] Body weight 2021-09-09 17:05:00 138 kg [facility]i ty of [place] [facility] BMI 2021-09-09 17:05:00 39.06 kg/m2 [facility]i [facility] [place] [facility] Systolic blood 2021-09-07 18:15:00 159 mm[Hg] Univer sity of pressure [place] [facility] Diastolic blood 2021-09-07 18:15:00 121 mm[Hg] Unive rsity of pressure [place] [facility] Heart rate 2021-09-07 18:15:00 92 /min Universi ty of [place] [facility] Respiratory rate 2021-09-07 18:15:00 28 /min Univ ersity of [place] [facility] Oxygen saturation in 2021-09-07 18:15:00 99 /min University of Arterial blood by [facility] [place] [facility] jennifer Pulse oximetry Branch Body temperature 2021-09-07 15:05:00 37 Sara Univ ersity of [place] [facility] Body weight 2021-09-07 15:05:00 137.893 kg [facility]i ty [facility] [place] [facility] BMI 2021-09-07 15:05:00 39.03 kg/m2 [facility]i [facility] [place] [facility] Systolic blood 2021-09-02 17:25:00 154 mm[Hg] Univer sity of pressure [place] [facility] Diastolic blood 2021-09-02 17:25:00 97 mm[Hg] Unive rsity of pressure [place] [facility] Heart rate 2021-09-02 17:25:00 81 /min Universi ty of [place] [facility] [place] Body temperature 2021-09-02 17:25:00 36.56 Sara Univ ersity of [place] [facility] Respiratory rate 2021-09-02 17:25:00 17 /min Univ ersity of [facility] Oxygen saturation in 2021-09-02 17:25:00 92 /min University of Arterial blood by [facility] Pulse oximetry Branch Body weight 2021-09-02 02:00:00 138.256 kg Universi ty of [place] [facility] [place] BMI 2021-09-02 02:00:00 39.13 kg/m2 Universi ty of [facility] Body height 2021-08-29 03:50:00 188 cm Universi ty of [facility] Systolic blood 2021-08-28 22:51:00 176 mm[Hg] Univer sity of pressure [facility] Diastolic blood 2021-08-28 22:51:00 121 mm[Hg] Unive rsity of pressure [place] [facility] [place] Heart rate 2021-08-28 22:51:00 92 /min Universi ty of [place] [facility] [place] Body temperature 2021-08-28 22:51:00 36.33 Sara Univ ersity of [place] [facility] [place] Respiratory rate 2021-08-28 22:51:00 18 /min Univ ersity of [place] [facility] [place] Body weight 2021-08-28 22:51:00 141.522 kg Universi ty of [facility] BMI 2021-08-28 22:51:00 40.06 kg/m2 Universi ty [facility] Oxygen saturation in 2021-08-28 22:51:00 96 /min University of Arterial blood by [facility] Pulse oximetry Branch Procedures Procedure Date / Time Performing Clinician Source Performed URINALYSIS 2021-09-09 21:24:00 Jairo Jordan [facility] TROPONIN I 2021-09-09 19:03:00 Jairo Jordan [facility] XR CHEST 1 VW 2021-09-09 18:01:50 Jairo Jordan [facility] COVID-19 (ID NOW RAPID 2021-09-09 17:33:00 Jairo Jordan [facility] TESTING) Medical Branch MAGNESIUM 2021-09-09 17:27:00 Jairo Jordan [facility] TROPONIN I 2021-09-09 17:27:00 Jairo Jordan [facility] COMP. METABOLIC PANEL 2021-09-09 17:27:00 Jairo Jordan [facility] ([id number]) [facility] Branch N-TERMINAL PRO-BNP 2021-09-09 17:27:00 Jairo Jordan Janny [facility] CBC WITH DIFF 2021-09-09 17:26:00 Jairo Jordan [facility] TROPONIN I 2021-09-07 17:42:00 Mary Reynaga [facility] XR CHEST 1 VW 2021-09-07 16:20:20 Mary Reynaga [facility] CT STROKE ANGIOGRAM HEAD 2021-09-07 15:58:28 Mary Reynaga [facility] STROKE ANGIOGRAM NECK 2021-09-07 15:58:28 Mary Reynaga [facility] CT STROKE HEAD WO 2021-09-07 15:52:52 Mary Reynaga [facility] POCT GLUCOSE (AUTOMATED) 2021-09-07 15:15:00 Mary Reynaga [facility] MAGNESIUM 2021-09-07 15:13:00 Mary Reynaga [facility] TROPONIN I 2021-09-07 15:13:00 Mary Reynaga [facility] COMP. METABOLIC PANEL 2021-09-07 15:13:00 Mary Reynaga [facility] ([id number]) [facility] Branch CBC WITH DIFF 2021-09-07 15:13:00 Mary Reynaga [facility] PROTHROMBIN TIME / INR 2021-09-07 15:13:00 Mary Reynaga [facility] N-TERMINAL PRO-BNP 2021-09-07 15:13:00 Mary Reynaga [facility] COVID-19 (ID NOW RAPID 2021-09-07 15:13:00 Mary Reynaga [facility] TESTING) Medical Branch BASIC METABOLIC PANEL 2021-09-02 11:11:00 Matteo Gilberto [facility] (NA, K, CL, CO2, GLUCOSE, Medica l Branch BUN, CREATININE, CA) EXTRA TUBE LAV 2021-09-02 11:11:00 Goran Mccormack [facility] BASIC METABOLIC PANEL 2021-09-01 14:43:00 Matteo Gilberto [facility] (NA, K, CL, CO2, GLUCOSE, Medica l Branch BUN, CREATININE, CA) BASIC METABOLIC PANEL 2021-08-30 13:10:00 Yessica [facility] (NA, K, CL, CO2, GLUCOSE, Medica l Branch BUN, CREATININE, CA) CBC WITH DIFF 2021-08-30 11:20:00 Yessica [facility] MAGNESIUM 2021-08-29 09:35:00 Yessica [facility] COMP. METABOLIC PANEL 2021-08-29 09:35:00 Yessica [facility] ([id number]) Medical Branch CBC WITH DIFF 2021-08-29 09:35:00 Yessica [facility] POCT GLUCOSE (AUTOMATED) 2021-08-29 05:51:00 Izaiah Hobbs [facility] CK (CREATINE KINASE) + MB 2021-08-29 04:26:00 Patrick Juan [facility] TROPONIN I 2021-08-29 04:26:00 Yessica [facility] THYROID STIMULATING 2021-08-29 04:26:00 Patrick Juan [facility] HORMONE [facility] Branch D-DIMER 2021-08-29 04:26:00 Yessica [facility] MRSA / MSSA SCREEN BY 2021-08-29 04:05:00 Yessica [facility] PCR, NARES [facility] Branch XR CHEST 1 VW 2021-08-28 23:39:33 Mac Miranda [facility] TROPONIN I 2021-08-28 23:27:00 Mac Miranda [facility] COMP. METABOLIC PANEL 2021-08-28 23:27:00 Mac Miranda [facility] ([id number]) Medical [place] CBC WITH DIFF 2021-08-28 23:27:00 Mac Miranda [facility] PROTHROMBIN TIME / INR 2021-08-28 23:27:00 Mac [facility] ACTIVATED PARTIAL 2021-08-28 23:27:00 Mac Miranda [facility] THRMPLAS MILKA [facility] N-TERMINAL PRO-BNP 2021-08-28 23:27:00 Mac Miranda [facility] COVID-19 (ID NOW RAPID 2021-08-28 23:27:00 Mac Miranda [facility] TESTING) Medical Branch LAB ONLY COVID 2021-08-28 23:27:00 Mac Miranda [facility] EKG (SCANNED DOCUMENTS) 2021-08-28 06:01:00 Doctor Unassigned [facility] ADMISSION 2021-08-28 06:01:00 Doctor Unassigned, [facility] [id number] 2021-03-01 [id number] 2021-03-01 00:00:00 [facility] [id number] 2021-01-03 00:00:00 [facility] [id number] 2020-12-04 00:00:00 [place] [facility] [id number] 2020-12-04 00:00:00 [place] [facility] Encounters Start End Encounter Admission Attending Care Care Encounter Source Date/Time Date/Time Type Type Clinicians Facility Department ID 2020-11-29 Inpatient HCACR PAOLA [id number] [facility] 15:07:00 [id number] [facility] 2020-11-29 Inpatient HCAPM PAOLA [id number] [facility] 09:29:00 [id number] [facility] 2022-02-11 2022-02-11 Outpatient R ROBERT [facility] [id number] Univers 14:00:00 14:00:00 [facility]-10-18 2021-10-18 [facility] [id number] Univers 15:00:00 15:00:00 ROCHELLE [id number] ity [facility] 2021-10-18 2021-10-18 Outpatient R ROBERT [facility] [id number] Univers 15:00:00 15:00:00 ROCHELLE [facility] 2021-09-17 2021-09-17 Outpatient Paul LESTER [facility] [id number] Univers 11:20:00 11:20:00 LORETA [id number] [facility] 2021-09-09 2021-09-09 Emergency X Jairo JORDAN [facility] ERT [id number] Univers 11:03:00 17:12:00 ity [facility] 2021-09-09 2021-09-[address] [facility] 1.2.840.114 [id number] Univers 11:03:00 17:12:00 Janny TSANG 350.1.13.10 i ty [facility] 4.2.7.2.686 [facility] [phone] [address] 2021-09-09 2021-09-09 Telephone Nicolás LORENZO 1.2.840.114 [id number] Univers 00:00:00 00:00:00 Francesca, PEDIATRIC 350.1.13.10 ity of [place] [phone] [facility] [address] CARE CLINIC 2021-09-07 2021-09-[address] [facility] ERT [id number] Univers 09:04:00 13:57:00 MARY mejias [facility] 2021-09-07 2021-09-07 Emergency [facility] 1.2.840.114 [id number] Univers 09:04:00 13:57:00 Mary TSANG 350.1.13.10 ity of [facility] [place] [id number] [address] 2021-09-07 2021-09-07 Nurse EDMUND Degroot 1.2.840.114 [id number] Univers 00:00:00 00:00:00 Triage Macy WRIGHT 350.1.13.10 it y of HOSPITAL 4.2.7.2.686 [place] as [phone] [facility] [address] [place] 2021-09-06 2021-09-06 Telephone [facility] 1.2.840.114 [id number] Univers 00:00:00 00:00:00 Gino F HEALTH 350.1.13.10 i ty of [place] [phone] [address] OFFICE BUILDING 2021-09-06 2021-09-06 Telephone [facility] 1.2.840.114 [id number] Univers 00:00:00 00:00:00 Rochelle Orlin HEALTH 350.1.13.10 ity of [place] 4.2.7.2.686 Alexander as YOUSIF?BLEA [phone] [facility] [address] [place] MEDICAL OFFICE BUILDING 2021-09-05 2021-09-05 Outpatient R ROBERT [facility] [id number] Univers 13:00:00 13:58:09 ROCHELLE mejias [facility] 2021-09-04 2021-09-04 Transition SRIDHAR Seth 1.2.840.114 [id number] Univers 00:00:00 00:00:00 of Care Heavenly B VE[place] 350.1.13.10 [place] [phone] [address] 2021-09-03 2021-09-03 Transition SRIDHAR Seth 1.2.840.114 [id number] Univers 00:00:00 00:00:00 of Care Heavenly B [place] 350.1.13.10 [place] [id number] [address] 2021-08-28 2021-09-02 [facility] Mca Miranda [facility] 1.2.840.1 [id number] Univers 17:20:00 13:00:00 Encounter Izaiah Hobbs 350.1.13.10 ity of Goran Mccormack 4.2.7.2.686 [place] CORSICANA [phone] [facility] [address] ([facility]) 2021-08-31 2021-08-31 Telephone EDMUND Morgan 1.2.597.415 [id number] Univers 00:00:00 00:00:00 Israel WRIGHT 350.1.13.10 it y of [facility] 4.2.7.2.686 [place] as [phone] [place] [address] [address] 2021-08-28 2021-08-[address] [facility] 1.2.840.114 [id number] Univers 16:30:00 17:14:19 Visit Brooks TSANG 350.1.13.10 ity of [facility] 4.[place].2.[place] PROF[place] [phone] [address] 2021-08-28 2021-08-28 Outpatient R BROOKS BARKER [facility] [id number] Univers 16:30:00 17:14:19 MJ, HOWARDDEISYARIS [facility] 2021-08-28 2021-08-28 Outpatient R BROOKS BARKER [facility] [id number] Univers 16:30:00 17:14:19 MJ NUARIS [facility] 2021-08-22 2021-08-26 [facility] [id number] Univers 22:10:00 10:50:00 MOHIT [facility] 2021-08-23 2021-08-23 [facility] [id number] Univers 08:50:00 08:50:00 JOSELUIS [facility] 2021-08-13 2021-08-16 Inpatient [facility] DIONISIO [id number] Univers 18:42:00 11:20:00 SADE [facility] 2021-08-14 2021-08-14 Outpatient R KIKE [facility] [id number] Univers 14:45:00 14:45:00 ROBERTO mejias [facility] 2021-08-12 2021-08-12 Outpatient R BROOKS BARKER [facility] [id number] Univers 15:00:00 15:56:28 [facility] 2021-08-04 2021-08-[address] [facility] DIONISIO [id number] Univers 16:37:00 15:45:00 CRISS randell [facility] 2021-08-02 2021-08-02 Outpatient R CAPRICE [facility] [id number] Univers 09:50:00 09:45:35 JOSELUIS [facility] 2021-07-30 2021-07-30 Emergency X [facility] ERT [id number] Univers 07:42:00 08:48:00 PIA blaire [facility] 2021-07-24 2021-07-24 Emergency X [facility] ERT [id number] Univers 16:12:00 16:59:00 PIA [facility] 2021-07-19 2021-07-19 Out[facility] [id number] Univers 14:30:00 14:31:55 randell MAKI [facility] 2021-07-17 2021-07-[address] [facility] ERT [id number] Univers 22:49:00 00:38:00 LUIS ANGEL blaire [facility] 2021-07-14 2021-07-[address] [facility] DIONISIO [id number] Univers 18:17:00 10:24:00 SADE [facility] 2021-07-09 2021-07-09 Outpatient [facility] [id number] Univers 14:00:00 14:00:00 randell MAKI [facility] 2021-07-08 2021-07-[address] [facility] ERT [id number] Univers 10:08:00 14:13:00 MARY blaire [facility] 2021-07-01 2021-07-02 Outpatient R ROBERT [facility] [id number] Univers 15:40:00 08:32:30 ROCHELLE mejias [facility] 2021-06-25 2021-06-25 Outpatient [facility] [id number] Univers 14:00:00 14:22:55 randell MAKI [facility] 2021-06-18 2021-06-18 [facility] [id number] Univers 15:00:00 15:00:00 FRANCESCArandell [facility] 2021-06-14 2021-06-14 Outpatient R JONES [facility] [id number] Univers 15:20:00 15:20:00 ROCHELLE mejias [facility] 2021-06-13 2021-06-13 Outpatient [facility] [id number] Univers 10:00:00 10:00:00 FRANCESCA [id number] ity [facility] 2021-06-11 2021-06-11 Outpatient R [facility] [id number] Univers 09:40:00 09:40:00 ity [facility] 2021-06-07 2021-06-09 Outpatient X DAYDAY DALAL [facility] [id number] Univers 23:27:00 13:00:00 [facility] 2021-06-06 2021-06-06 Outpatient [facility] [id number] Univers 10:00:00 10:00:00 FRANCESCA [id number] ity [facility] 2021-06-04 2021-06-04 Outpatient [facility] [id number] Univers 15:00:00 15:25:05 FRANCESCArandell [facility] 2021-05-30 2021-05-30 Outpatient [facility] [id number] Univers 10:00:00 10:00:00 FRANCESCArandell [facility] 2021-05-22 2021-05-24 [facility] [id number] Univers 13:49:00 15:38:00 FRANCESCA ity [facility] 2021-05-23 2021-05-23 Outpatient R ITURRIZAGA- [facility] [id number] Univers 10:00:00 10:00:00 randell MAKI [facility] 2021-05-21 2021-05-21 Out[facility] [id number] Univers 13:30:00 13:54:00 randell MAKI [facility] 2021-05-16 2021-05-16 Outpatient R ITURRIZAGA- [facility] [id number] Univers 10:00:00 10:00:00 randell MAKI [facility] 2021-05-09 2021-05-09 Outpatient [facility] [id number] Univers 10:30:00 10:30:00 randell MAKI [facility] 2021-05-02 2021-05-02 [facility] [id number] Univers 10:00:00 10:00:00 randell MAKI [facility] 2021-04-26 2021-04-26 Outpatient [facility] [id number] Univers 14:00:00 14:53:04 randell MAKI [facility] 2021-04-16 2021-04-16 Outpatient [facility] [id number] Univers 16:30:00 16:30:00 randell MAKI [facility] 2021-04-09 2021-04-09 Outpatient R [facility] [id number] Univers 14:30:00 14:54:06 FRANCESCA, ity [facility] 2021-03-11 2021-04-04 [facility] [id number] Univers 20:29:00 18:25:00 randell MAKI [facility] 2021-03-04 2021-03-04 Outpatient R IVANA [facility] [id number] Univers 07:30:00 07:30:00 ADRIANNA itblaire [facility] 2021-02-282021-03-01 Inpatient EM Ahmed, HCAPM INTE.02 [id number] [facility] 16:19:00 15:10:00 [facility] [id number] [facility] 2021-02-28 2021-02-28 Outpatient Ahmed, HCACL LABO [id number] [facility] 08:44:00 08:44:00 [facility] [id number] [facility] 2021-02-27 2021-02-27 Inpatient EM Ahmed, HCAPM INTE.02 [id number] [facility] 12:18:00 12:17:00 [facility] [id number] [facility] 2021-02-27 2021-02-27 Transition Sridhar Seth 1.2.840.114 [id number] 00:00:00 00:00:00 of Care Heavenly [place] 350.1.13.10 [place] 4.2.7.2.686 [id number] 403 2021-02-26 2021-02-26 Transition Sridhar Seth 1.2.840.114 [id number] 00:00:00 00:00:00 of Care Heavenly [place] 350.1.13.10 [place] 4.2.7.2.686 [id number] 2021-02-25 2021-02-25 Reftrini [facility] 1.2.840.114 [id number] 00:00:00 00:00:00 Ayush Tsang 350.1.13.10 [place] 4.2.7.2.686 Professio [id number] [facility] 2021-02-22 2021-02-24 Emergency [facility] [id number] [id number] 20:27:00 15:41:00 Doris Tsang 350.1.13.10 [place] 4.2.7.2.686 [place] [id number] 2021-02-13 2021-02-13 Patient [facility] 1.2.840.114 [id number] 00:00:00 00:00:00 Outreach Nikole Tsang 350.1.13.10 [place] 4.2.7.2.686 [place] [id number] counts include 234 beds at [facility] 231 [facility] 2021-02-04 2021-02-06 Inpatient EM Kathia, HCACL INTE.02 [id number] [facility] 20:15:00 16:26:00 Precious [id number] [facility] 2021-02-04 2021-02-04 Emergency EM Nasim, HCAPM PAOLA [id number] [facility] 12:54:00 19:20:00 Isac [id number] [facility] 2021-01-23 2021-01-23 [facility] [id number] Univers 15:00:00 15:00:00 SENDIL [facility] 2021-01-08 2021-01-08 Out[facility] [id number] Univers 19:30:00 19:30:00 BARTOLOME [facility] 2021-01-03 2021-01-07 Inpatient EM [place] HCAPM INTE.02 [id number] [facility] 15:04:00 14:00:00 [facility] [id number] [facility] 2021-01-03 2021-01-03 Outpatient [place], HCACL LABO [id number] [facility] 21:53:00 21:53:00 [place] [id number] [facility] 2021-01-02 2021-01-02 Outpatient R AMADO [facility] [id number] Univers 16:20:00 16:20:00 MARIA E [facility] 2021-01-01 2021-01-01 Outpatient R ARVIND [facility] [id number] Univers 08:00:00 09:20:28 MILAN mejias o f [facility] 2020-12-28 2020-12-28 [facility] [id number] Univers 11:00[facility]00 [facility]18[facility] 2020-12-27 Emergency X , [facility] ERT [id number] Univers 13:27:00 14:19:00 PIA [facility] 2020-12-26 2020-12-26 Outpatient R ARVIND, [facility] [id number] Univers 13:30:00 13:30:00 MILAN mejias o f [facility] 2020-12-14 2020-12-14 Outpatient R [facility] [id number] Univers 15:15:00 15:15:00 [facility] 2020-12-11 2020-12-11 Outpatient R ELENI [facility] [id number] Univers 10:40:00 11:23:17 KELLY [facility] 2020-12-07 2020-12-07 Outpatient R WILBERTO [facility] [id number] Univers 10:00:00 10:19:12 SENDIL [facility] 2020-11-30 2020-12-05 Inpatient EM Elisha, [facility] [id number] [facility] 16:20:00 11:58:00 Benoit [id number] [facility] 2020-11-29 2020-11-29 Outpatient R ALAINA [facility] [id number] Univers 14:00:00 14:00:00 EDMUND [facility] 2020-11-27 2020-11-27 Outpatient R BARTOLOME NATALIEORWandy [facility] [id number] Univers 19:30:00 19:30:00 ANDREW MANCUSO [facility] 2020-11-14 2020-11-14 Outpatient R AMADO [facility] [id number] Univers 00:00:00 00:00:00 MARIA E [facility] 2020-11-02 2020-11-02 Outpatient R AYUSH BEE [facility] [id number] Univers 08:40:00 08:40:00 AYUSH BEE [facility] 2020-10-31 2020-10-31 Outpatient R WILBERTO [facility] [id number] Univers 10:00:00 10:27:10 SENDIL [facility] 2020-10-02 2020-10-02 Outpatient R WILBERTO [facility] [id number] Univers 10:00:00 11:14:31 SENDIL [facility] 2020-09-11 2020-09-11 Outpatient R ELENI [facility] [id number] Univers 13:00:00 13:46:40 KELLY [facility] 2020-05-29 2020-06-02 Inpatient JOSÉ MIGUEL NERI [id number] 05:06:00 14:30:00 [facility] l Results Test Description Test Time Test Comments Results Result Comments Source TROPONIN I 2021-09-09 19:35:42 Test Item Value Reference Range Interpretation Comme nts TROPONIN I (test code = 0.038 ng/mL See_Comment H [Au tomated message] The [id number]) system which ge nerated this result tra nsmitted reference range : <=0.034. The reference r marino was not used to int erpret this result as normal/abnormal . JACOB (test code = JACOB) Reference (Normal) Range (defined by the 99th percentile reference [...] biotin. Lab Interpretation Abnormal (test code = 06016-9) [facility] [id number] 18:08:05 Test Item Value Reference Interpretation Comments Range TROPONIN I (test 0.038 ng/mL See_Comment H [Automated code = 6986122791) message] The system which generated this result [...] biotin. Lab Interpretation Abnormal (test code = 49695-7) [facility] [id number] 18:04:47 Test Item Value Reference Range Interpretation Comments NT-proBNP (test code 3720 pg/mL See_Comment H [Autom ated = 1129819659) message] The system which generated this result transmitted reference range : <=125. The reference range was not used to interpret this result as normal/abnormal . JACOB (test code = JACOB) Biotin has been reported to cause a negative bias, interpret results relative to patient's use of biotin. Lab Interpretation Abnormal (test code = 43502-8) [facility] MET[facility]OLIC PANEL ([id number])2021-09-09 17:56:26 Test Item Value Reference Range Interpretation Comments NA (test code = 140 mmol/L 135-145 8096271830) K (test code = 4.0 mmol/L 3.5-5.0 7160356461) CL (test code = 108 mmol/L 98-108 5887815033) CO2 TOTAL (test code 24 mmol/L 23-31 = 0394571812) AGAP (test code = 2-16 7454816159) BUN (test code = 19 mg/dL 7-23 1096535156) GLUCOSE (test code = 107 mg/dL 70-110 7563971590) CREATININE (test code 1.22 mg/dL 0.60-1.25 = 3866115524) TOTAL BILI (test code 0.6 mg/dL 0.1-1.1 = 9734765671) CALCIUM (test code = 8.8 mg/dL 8.6-10.6 5476619150) T PROTEIN (test code 7.4 g/dL 6.3-8.2 = 7313088228) ALBUMIN (test code = 4.1 g/dL 3.5-5.0 0802231778) ALK PHOS (test code = 65 U/L 34-122 5653912542) ALTv (test code = 15 U/L 5-50 1742-6) AST(SGOT) (test code 27 U/L 13-40 = 5720600809) eGFR (test code = mL/min/1.73m2 1952682815) JACOB (test code = JACOB) Association of Glomerular Filtration Rate (GFR) and Staging of Kidney Disease* + + +- +| GFR (mL/min/1.73 m2) ?| With Kidney Damage ?| ?Without Kidney Damage+ ------+ ----+ ------+| ?>90 ?| ?Stage one ?| ? Normal ?+ -+ + -+| ?60-89 ?| ?Stage two ?| ? Decreased GFR ? + + +- +| ?30-59 ?| ?Stage three ?| ? Stage three ? + + +- +| ?15-29 ?| ?Stage four ? | ? Stage four ?+ -+ + -+| ?<15 (or dialysis) ? ?| ?Stage five ? | ? Stage five ?+ -+ + -+ *Each stage assumes the associated GFR level [...] or urine or abnormalities in imaging tests). [facility]22-[facility]-07 17:56:26 Test Item Value Reference Range Interpretation Comments MAGNESIUM (test code = 6654465572) 1.7 mg/dL 1.7-2.4 Lab Interpretation (test code = Normal 22283-1) [facility] WITH [id number] 17:51:42 Test Item Value Reference Range Interpretation Comments WBC (test code = See_Comment [Automated 2790-2) message] The sy stem which generated this [...] as normal/abnormal . HGB (test code = 13.3 g/dL 12.2-16.4 718-7) HCT (test code = 42.0 % 38.4-49.3 4544-3) MCV (test code = 80.2 fL 81.7-95.6 L 787-2) MCH (test code = 25.4 pg 26.1-32.7 L 785-6) MCHC (test code = 31.7 g/dL 31.2-35.0 786-4) RDW-SD (test code = 44.9 fL 38.5-51.6 42927-2) RDW-CV (test code = 15.7 % 12.1-15.4 H 788-0) PLT (test code = See_Comment [Automated 777-3) message] The sy stem which generated this result transmitted reference range : 150 - 328 10*3/ ?L. The reference r marino was not used to interpret this result as normal/abnormal . MPV (test code = 12.1 fL 9.8-13.0 61713-4) NRBC/100 WBC (test See_Comment [Automat ed code = 2521954937) message] The system which generated this result transmitted reference range : 0.0 - 10.0 /100 WBCs. The refer ence range was not u sed to interpret th is result as normal/abnormal . NRBC x10^3 (test code <0.01 See_Comment [Auto mated = 8863886913) message] The s ystem which generated this result transmitted reference range : 10*3/?L. The reference range was not used to interpret this result as normal/abnormal . GRAN MAT (NEUT) % 46.6 % (test code = 770-8) IMM GRAN % (test code 0.20 % = 2976656299) LYMPH % (test code = 40.2 % 736-9) MONO % (test code = 10.0 % 5905-5) EOS % (test code = 2.7 % 713-8) BASO % (test code = 0.3 % 706-2) GRAN MAT x10^3(ANC) 2.76 10*3/uL 1.99-6.95 (test code = 9687580659) IMM GRAN x10^3 (test <0.03 0.00-0.06 code = 1311268709) LYMPH x10^3 (test code 2.38 10*3/uL 1.09-3.23 = 731-0) MONO x10^3 (test code 0.59 10*3/uL 0.36-1.02 = 742-7) EOS x10^3 (test code = 0.16 10*3/uL 0.06-0.53 711-2) BASO x10^3 (test code <0.03 0.01-0.09 = 704-7) Lab Interpretation Abnormal (test code = 77532-9) [facility] [id number] 18:17:35 Test Item Value Reference Interpretation Comments Range TROPONIN I (test 0.040 ng/mL See_Comment H [Automated code = 5492432551) message] The system which generated this result [...] biotin. Lab Interpretation Abnormal (test code = 91168-8) [facility] WITH [id number] 16:06:26 Test Item Value Reference Range Interpretation Comments WBC (test code = See_Comment [Automated 6690-2) message] The sy stem which [...] as normal/abnormal . HGB (test code = 13.5 g/dL 12.2-16.4 718-7) HCT (test code = 43.3 % 38.4-49.3 4544-3) MCV (test code = 81.5 fL 81.7-95.6 L 787-2) MCH (test code = 25.4 pg 26.1-32.7 L 785-6) MCHC (test code = 31.2 g/dL 31.2-35.0 786-4) RDW-SD (test code = 46.3 fL 38.5-51.6 27575-4) RDW-CV (test code = 15.6 % 12.1-15.4 H 788-0) PLT (test code = See_Comment [Automated 777-3) message] The sy stem which generated this result transmitted reference range : 150 - 328 10*3/ ?L. The reference r marino was not used to interpret this result as normal/abnormal . MPV (test code = 10.7 fL 9.8-13.0 11232-7) NRBC/100 WBC (test See_Comment [Automat ed code = 1142668294) message] The system which generated this result transmitted reference range : 0.0 - 10.0 /100 WBCs. The refer ence range was not u sed to interpret th is result as normal/abnormal . NRBC x10^3 (test code <0.01 See_Comment [Auto mated = 1167263982) message] The s ystem which generated this result transmitted reference range : 10*3/?L. The reference range was not used to interpret this result as normal/abnormal . GRAN MAT (NEUT) % 42.2 % (test code = 770-8) IMM GRAN % (test code 0.20 % = 0938632086) LYMPH % (test code = 42.3 % 736-9) MONO % (test code = 11.4 % 5905-5) EOS % (test code = 3.5 % 713-8) BASO % (test code = 0.4 % 706-2) GRAN MAT x10^3(ANC) 1.92 10*3/uL 1.99-6.95 L (test code = 5789715021) IMM GRAN x10^3 (test <0.03 0.00-0.06 code = 0710985483) LYMPH x10^3 (test code 1.93 10*3/uL 1.09-3.23 = 731-0) MONO x10^3 (test code 0.52 10*3/uL 0.36-1.02 = 742-7) EOS x10^3 (test code = 0.16 10*3/uL 0.06-0.53 711-2) BASO x10^3 (test code <0.03 0.01-0.09 = 704-7) REACT LYMPHS (test Moderate code = 1693129606) Lab Interpretation Abnormal (test code = 14547-4) [id number]27 Test Item Value Reference Interpretation Comments Range TROPONIN I (test 0.040 ng/mL See_Comment H [Automated code = [id number]) message] The system which generated this result [...] biotin. Lab Interpretation Abnormal (test code = 47818-9) [facility] [id number] 15:46:26 Test Item Value Reference Range Interpretation Comments NT-proBNP (test code 2580 pg/mL See_Comment H [Autom ated = [id number]) message] The system which generated this result transmitted reference range : <=125. The reference range was not used to interpret this result as normal/abnormal . JACOB (test code = JACOB) Biotin has been reported to cause a negative bias, interpret results relative to patient's use of biotin. Lab Interpretation Abnormal (test code = 42888-1) [facility] 15:37:44 Test Item Value Reference Range Interpretation Comments MAGNESIUM (test code = 7105736284) 1.9 mg/dL 1.7-2.4 Lab Interpretation (test code = Normal 71572-1) [facility] [place] METABOLIC PANEL (82929)2021-09-07 15:37:24 Test Item Value Reference Range Interpretation Comments NA (test code = 140 mmol/L 135-145 3697508320) K (test code = 3.8 mmol/L 3.5-5.0 7016319044) CL (test code = 107 mmol/L 98-108 4289440776) CO2 TOTAL (test code = 26 mmol/L 23-31 4282587053) AGAP (test code = 2-16 2942657813) BUN (test code = 26 mg/dL 7-23 H 7855811687) GLUCOSE (test code = 112 mg/dL 70-110 H 2431132697) CREATININE (test code = 1.28 mg/dL 0.60-1.25 H 5513591367) TOTAL BILI (test code = 0.5 mg/dL 0.1-1.4 6536189020) CALCIUM (test code = 8.7 mg/dL 8.6-10.6 8332770949) T PROTEIN (test code = 7.3 g/dL 6.3-8.2 0644116856) ALBUMIN (test code = 4.1 g/dL 3.5-5.0 8406404751) ALK PHOS (test code = 75 U/L 34-122 5221119350) ALTv (test code = 17 U/L 5-50 1742-6) AST(SGOT) (test code = 27 U/L 13-40 6116864331) eGFR (test code = mL/min/1.73m2 3118992701) JACOB (test code = JACOB) Association of [...] Stage three ? + --+ --+ ------+| ?1529 ?| ?Stage four ? | ? Stage [...] tests). Lab Interpretation Abnormal (test code = 23451-4) [facility] / [id number] 15:32:26 Test Item Value Reference Range Interpretation Comments PROTIME PATIENT (test See_Comment [Auto mated message] code = 5964-2) The system [employer] generated this result transmitted ref erence range: 12.0 - 1 4.7 Seconds. The re ference range was not u sed to interpret this result as normal/abnor mal. INR (test code = 6301-6) Nor mal INR <1.1; Warfarin Therap eutic range 2.0 to 3. 0 or 2.5 to 3.5, dep ending upon the indica tions. Lab Interpretation (test Normal code = 90185-6) [facility]2021-09-07 15:18:03 Test Item Value Reference Range Interpretation Comments POCT GLU (test code = 8846227799) 137 mg/dL 70-110 H Lab Interpretation (test code = Abnormal 21693-5) [facility] METABOLIC PANEL (NA, K, CL, CO2, GLUCOSE, BUN, CREATININE, CA)2021-09-02 11:40:14 Test Item Value Reference Range Interpretation Comments NA (test code = 140 mmol/L 135-145 0507086340) K (test code = 4.0 mmol/L 3.5-5.0 3097148392) CL (test code = 102 mmol/L 98-108 3097453048) CO2 TOTAL (test code = 31 mmol/L 23-31 9863547283) AGAP (test code = 2-16 3482488352) BUN (test code = 30 mg/dL 7-23 H 2765058521) GLUCOSE (test code = 109 mg/dL 70-110 5545375028) CREATININE (test code = 1.43 mg/dL 0.60-1.25 H 5202325820) CALCIUM (test code = 9.0 mg/dL 8.6-10.6 9542615690) eGFR (test code = mL/min/1.73m2 6161162030) JACOB (test code = JACOB) Association of [...] tests). Lab Interpretation Abnormal (test code = 85783-7) [facility] METABOLIC PANEL (NA, K, CL, CO2, GLUCOSE, BUN, CREATININE, CA)2021-09-01 15:07:05 Test Item Value Reference Range Interpretation Comments NA (test code = 140 mmol/L 135-145 5000766439) K (test code = 3.8 mmol/L 3.5-5.0 7029822119) CL (test code = 101 mmol/L 98-108 3710108803) CO2 TOTAL (test code = 30 mmol/L 23-31 1842291856) AGAP (test code = 2-16 4043493346) BUN (test code = 27 mg/dL 7-23 H 8004037472) GLUCOSE (test code = 124 mg/dL 70-110 H 6905977049) CREATININE (test code = 1.36 mg/dL 0.60-1.25 H 9275931003) CALCIUM (test code = 8.9 mg/dL 8.6-10.6 4809381825) eGFR (test code = mL/min/1.73m2 2377763436) JACOB (test code = JACOB) Association of [...] tests). Lab Interpretation Abnormal (test code = 45062-5) [facility] METABOLIC PANEL (NA, K, CL, CO2, GLUCOSE, BUN, CREATININE, CA)2021-08-30 14:09:28 Test Item Value Reference Range Interpretation Comments NA (test code = 140 mmol/L 135-145 9357803756) K (test code = 3.7 mmol/L 3.5-5.0 Slight 3715249580) hemolysis CL (test code = 110 mmol/L 98-108 H 7349570968) CO2 TOTAL (test code 25 mmol/L 23-31 = 4834825068) AGAP (test code = 2-16 5237110288) BUN (test code = 25 mg/dL 7-23 H Slight 6972925406) hemolysis GLUCOSE (test code = 85 mg/dL 70-110 4801978284) CREATININE (test code 1.18 mg/dL 0.60-1.25 = 9447824952) CALCIUM (test code = 7.1 mg/dL 8.6-10.6 L 6022557596) eGFR (test code = mL/min/1.73m2 7948771769) JACOB (test code = JACOB) Association of Glomerular Filtration Rate (GFR) and Staging of Kidney Disease* + -----+ --------+ +| GFR (mL/min/1.73 m2) ?| With Kidney Damage ?| ?Without Kidney Damage+ +------- +---- --+| ?>90 ?| ?Stage one ?| ? Normal ?+ ------+ ---------+--------- +| ?60-89 ?| ?Stage two ?| ? Decreased GFR ? + -----+ --------+ +| ?30-59 ?| ?Stage three ?| ? Stage three ? + -----+ --------+ +| ?15-29 ?| ?Stage four ? | ? Stage four ?+ ------+ ---------+--------- +| ?<15 (or dialysis) ? ?| ?Stage five ? | ? Stage five ?+ ------+ ---------+--------- + *Each stage assumes the associated GFR level [...] tests). Lab Interpretation Abnormal (test code = 73430-2) [facility] WITH [id number] 12:34:17 Test Item Value Reference Range Interpretation Comments WBC (test code = See_Comment [Automated 7444-2) message] The sy stem which generated this result transmitted reference range : 4.20 - 10.70 10*3/?L. The reference range was not used to interpret this result as normal/abnormal . RBC (test code = See_Comment [Automated 036-8) message] The sy stem which generated this result transmitted reference range : 4.26 - 5.52 10*6/?L. The reference range was not used to interpret this result as normal/abnormal . HGB (test code = 12.5 g/dL 12.2-16.4 718-7) HCT (test code = 40.3 % 38.4-49.3 4544-3) MCV (test code = 82.4 fL 81.7-95.6 787-2) MCH (test code = 25.6 pg 26.1-32.7 L 785-6) MCHC (test code = 31.0 g/dL 31.2-35.0 L 786-4) RDW-SD (test code = 49.7 fL 38.5-51.6 67270-6) RDW-CV (test code = 16.6 % 12.1-15.4 H 788-0) PLT (test code = See_Comment [Automated 777-3) message] The sy stem which generated this result transmitted reference range : 150 - 328 10*3/ ?L. The reference r marino was not used to interpret this result as normal/abnormal . MPV (test code = 11.8 fL 9.8-13.0 52238-0) NRBC/100 WBC (test See_Comment [Automat ed code = 9378840225) message] The system which generated this result transmitted reference range : 0.0 - 10.0 /100 WBCs. The refer ence range was not u sed to interpret th is result as normal/abnormal . NRBC x10^3 (test code <0.01 See_Comment [Auto mated = 4649692590) message] The s ystem which generated this result transmitted reference range : 10*3/?L. The reference range was not used to interpret this result as normal/abnormal . GRAN MAT (NEUT) % 45.4 % (test code = 770-8) IMM GRAN % (test code 0.20 % = 2337870522) LYMPH % (test code = 41.2 % 736-9) MONO % (test code = 10.4 % 5905-5) EOS % (test code = 2.6 % 713-8) BASO % (test code = 0.2 % 706-2) GRAN MAT x10^3(ANC) 1.91 10*3/uL 1.99-6.95 L (test code = 7466036026) IMM GRAN x10^3 (test <0.03 0.00-0.06 code = 5114573953) LYMPH x10^3 (test code 1.74 10*3/uL 1.09-3.23 = 731-0) MONO x10^3 (test code 0.44 10*3/uL 0.36-1.02 = 742-7) EOS x10^3 (test code = 0.11 10*3/uL 0.06-0.53 711-2) BASO x10^3 (test code <0.03 0.01-0.09 = 704-7) LG GRAN LYMPHS (test Rare Rare code = 2906053149) REACT LYMPHS (test Rare code = 7659428366) Lab Interpretation Abnormal (test code = 70431-9) [facility] WITH [id number] 11:13:49 Test Item Value Reference Range Interpretation Comments WBC (test code = See_Comment [Automated 6690-2) message] The sy stem which [...] as normal/abnormal . HGB (test code = 12.7 g/dL 12.2-16.4 718-7) HCT (test code = 41.0 % 38.4-49.3 4544-3) MCV (test code = 81.8 fL 81.7-95.6 787-2) MCH (test code = 25.3 pg 26.1-32.7 L 785-6) MCHC (test code = 31.0 g/dL 31.2-35.0 L 786-4) RDW-SD (test code = 49.3 fL 38.5-51.6 17068-9) RDW-CV (test code = 16.6 % 12.1-15.4 H 788-0) PLT (test code = See_Comment [Automated 777-3) message] The sy stem which generated this result transmitted reference range : 150 - 328 10*3/ ?L. The reference r marino was not used to interpret this result as normal/abnormal . MPV (test code = 10.9 fL 9.8-13.0 85129-3) NRBC/100 WBC (test See_Comment [Automat ed code = 9480730928) message] The system which generated this result transmitted reference range : 0.0 - 10.0 /100 WBCs. The refer ence range was not u sed to interpret th is result as normal/abnormal . NRBC x10^3 (test code <0.01 See_Comment [Auto mated = 2060799276) message] The s ystem which generated this result transmitted reference range : 10*3/?L. The reference range was not used to interpret this result as normal/abnormal . GRAN MAT (NEUT) % 32.6 % (test code = 770-8) IMM GRAN % (test code 0.00 % = 4899040055) LYMPH % (test code = 52.4 % 736-9) MONO % (test code = 12.3 % 5905-5) EOS % (test code = 2.5 % 713-8) BASO % (test code = 0.2 % 706-2) GRAN MAT x10^3(ANC) 1.43 10*3/uL 1.99-6.95 L (test code = 1998187527) IMM GRAN x10^3 (test <0.03 0.00-0.06 code = 0229774951) LYMPH x10^3 (test code 2.30 10*3/uL 1.09-3.23 = 731-0) MONO x10^3 (test code 0.54 10*3/uL 0.36-1.02 = 742-7) EOS x10^3 (test code = 0.11 10*3/uL 0.06-0.53 711-2) BASO x10^3 (test code <0.03 0.01-0.09 = 704-7) Lab Interpretation Abnormal (test code = 87570-4) [facility] (81942)2021-08-29 09:59:56 Test Item Value Reference Range Interpretation Comments NA (test code = 140 mmol/L 135-145 5993229196) K (test code = 3.8 mmol/L 3.5-5.0 3795807281) CL (test code = 105 mmol/L 98-108 5102377422) CO2 TOTAL (test code = 28 mmol/L 23-31 8909947540) AGAP (test code = 2-16 2149462865) BUN (test code = 27 mg/dL 7-23 H 1279697309) GLUCOSE (test code = 100 mg/dL 70-110 2023011995) CREATININE (test code = 1.44 mg/dL 0.60-1.25 H 1084534648) TOTAL BILI (test code = 0.5 mg/dL 0.1-1.6 8193683192) CALCIUM (test code = 8.4 mg/dL 8.6-10.6 L 0118947452) T PROTEIN (test code = 7.2 g/dL 6.3-8.2 4329010676) ALBUMIN (test code = 3.8 g/dL 3.5-5.0 2030833802) ALK PHOS (test code = 48 U/L 34-122 2807653302) ALTv (test code = 19 U/L 5-50 1742-6) AST(SGOT) (test code = 28 U/L 13-40 0099237401) eGFR (test code = mL/min/1.73m2 6658197817) JACOB (test code = JACOB) Association of [...] tests). Lab Interpretation Abnormal (test code = 79298-4) [facility] Test Item Value Reference Range Interpretation Comments MAGNESIUM (test code = 9915734346) 1.9 mg/dL 1.7-2.4 Lab Interpretation (test code = Normal 32600-3) [facility]ID STIMULATING [id number] 07:19:15 Test Item Value Reference Range Interpretation Comments TSH (test code = See_Comment [Automated message] 1338419593) The system [employer] generated this result transmitted ref erence range: 0.45 - 4 .70 mIU/L. The refe rence range was not u sed to interpret this result as normal/abnor mal. Lab Interpretation (test Normal code = 07280-4) [facility]cosTROPONIN [id number] 07:00:54 Test Item Value Reference Interpretation Comments Range TROPONIN I (test 0.057 ng/mL See_Comment H [Automated code = 1144525719) message] The system which generated this result [...] biotin. Lab Interpretation Abnormal (test code = 52692-2) [facility]CK (CREATINE KINASE) + [id number] 07:00:54 Test Item Value Reference Range Interpretation Comments CK (test code = 375 U/L 33-194 H 6570988022) CK-MB (test code = 1.52 ng/mL See_Comment [Automat ed 7042406710) message] The system which generated this result transmitted reference range : <=3.50. The reference range was not used to interpret this result as normal/abnormal . CKMB INDEX (test code 0.4 % 0.0-2.5 = 7632427130) JACOB (test code = JACOB) Biotin has been reported to cause a negative bias, interpret results relative to patient's use of biotin. Lab Interpretation Abnormal (test code = 12457-6) [facility]2021-08-29 05:51:28 Test Item Value Reference Range Interpretation Comments POCT GLU (test code = 0506370983) 87 mg/dL 70-110 Lab Interpretation (test code = Normal 82015-4) [facility]cosD-Ajofu5970-10-01 05:31:36 Test Item Value Reference Interpretation Comments Range D-DIMER (test code = See_Comment H [Autom ated 5866027772) message] The system which generated this result transmitted reference range : <0.50 ?g/mL (FEU). The reference range was not [...] diagnosis. Lab Interpretation Abnormal (test code = 66017-5) [facility] [id number] 00:02:13 Test Item Value Reference Interpretation Comments Range TROPONIN I (test 0.047 ng/mL See_Comment H [Automated code = 1751191678) message] The system which generated this result [...] biotin. Lab Interpretation Abnormal (test code = 44956-3) [facility]cosN-TERMINAL [id number] 23:58:52 Test Item Value Reference Range Interpretation Comments NT-proBNP (test code 5120 pg/mL See_Comment H [Autom ated = 7613945893) message] The system which generated this result transmitted reference range : <=125. The reference range was not used to interpret this result as normal/abnormal . JACOB (test code = JACOB) Biotin has been reported to cause a negative bias, interpret results relative to patient's use of biotin. Lab Interpretation Abnormal (test code = 24403-1) [facility]cosACTIVATED PARTIAL THRMPLAS [id number] 23:50:31 Test Item Value Reference Range Interpretation Comments APTT Patient (test See_Comment [Automat ed code = 3173-2) message] The system which generated this result transmitted reference range : 23 - 38 Seconds . The reference range was not used to interpr et this result as normal/abnormal . JACOB (test code = JACOB) The [facility] patient population mean normal value for aPTT is 30 seconds. Lab Interpretation Normal (test code = 79980-2) [facility]COMP. METABOLIC PANEL (86810)2021-08-28 23:50:31 Test Item Value Reference Range Interpretation Comments NA (test code = 139 mmol/L 135-145 7302534886) K (test code = 4.1 mmol/L 3.5-5.0 5945666653) CL (test code = 104 mmol/L 98-108 5492325744) CO2 TOTAL (test code = 28 mmol/L 23-31 2594742756) AGAP (test code = 2-16 3150164983) BUN (test code = 24 mg/dL 7-23 H 7453393437) GLUCOSE (test code = 86 mg/dL 70-110 9876491620) CREATININE (test code = 1.52 mg/dL 0.60-1.25 H 7104093201) TOTAL BILI (test code = 0.6 mg/dL 0.1-1.5 3107747344) CALCIUM (test code = 8.8 mg/dL 8.6-10.6 0361411406) T PROTEIN (test code = 7.5 g/dL 6.3-8.2 7357247626) ALBUMIN (test code = 4.2 g/dL 3.5-5.0 0785508836) ALK PHOS (test code = 63 U/L 34-122 6791999205) ALTv (test code = 23 U/L 5-50 1742-6) AST(SGOT) (test code = 35 U/L 13-40 3172538954) eGFR (test code = mL/min/1.73m2 8180433080) JACOB (test code = JACOB) Association of [...] tests). Lab Interpretation Abnormal (test code = 61315-3) [facility]cosPROTHROMBIN TIME / [id number] 23:48:29 Test Item Value Reference Range Interpretation Comments PROTIME PATIENT (test See_Comment [Auto mated message] code = 5964-2) The system wh ich generated this result transmitted ref erence range: 12.0 - 1 4.7 Seconds. The re ference range was not u sed to interpret this result as normal/abnor mal. INR (test code = 6301-6) Nor mal INR <1.1; Warfarin Therap eutic range 2.0 to 3. 0 or 2.5 to 3.5, dep ending upon the indica tions. Lab Interpretation (test Normal code = 26111-0) [facility]CB WITH [id number] 23:43:51 Test Item Value Reference Range Interpretation Comments WBC (test code = See_Comment [Automated 3590-2) message] The sy stem which generated this [...] as normal/abnormal . HGB (test code = 13.9 g/dL 12.2-16.4 718-7) HCT (test code = 44.3 % 38.4-49.3 4544-3) MCV (test code = 80.5 fL 81.7-95.6 L 787-2) MCH (test code = 25.3 pg 26.1-32.7 L 785-6) MCHC (test code = 31.4 g/dL 31.2-35.0 786-4) RDW-SD (test code = 47.4 fL 38.5-51.6 31459-7) RDW-CV (test code = 16.3 % 12.1-15.4 H 788-0) PLT (test code = See_Comment [Automated 777-3) message] The sy stem which generated this result transmitted reference range : 150 - 328 10*3/ ?L. The reference r marino was not used to interpret this result as normal/abnormal . MPV (test code = 11.1 fL 9.8-13.0 90214-1) NRBC/100 WBC (test See_Comment [Automat ed code = 2699395411) message] The system which generated this result transmitted reference range : 0.0 - 10.0 /100 WBCs. The refer ence range was not u sed to interpret th is result as normal/abnormal . NRBC x10^3 (test code <0.01 See_Comment [Auto mated = 8084777737) message] The s ystem which generated this result transmitted reference range : 10*3/?L. The reference range was not used to interpret this result as normal/abnormal . GRAN MAT (NEUT) % 44.6 % (test code = 770-8) IMM GRAN % (test code 0.30 % = 8766748093) LYMPH % (test code = 39.1 % 736-9) MONO % (test code = 14.1 % 5905-5) EOS % (test code = 1.6 % 713-8) BASO % (test code = 0.3 % 706-2) GRAN MAT x10^3(ANC) 2.76 10*3/uL 1.99-6.95 (test code = 3915576540) IMM GRAN x10^3 (test <0.03 0.00-0.06 code = 2387983043) LYMPH x10^3 (test code 2.42 10*3/uL 1.09-3.23 = 731-0) MONO x10^3 (test code 0.87 10*3/uL 0.36-1.02 = 742-7) EOS x10^3 (test code = 0.10 10*3/uL 0.06-0.53 711-2) BASO x10^3 (test code <0.03 0.01-0.09 = 704-7) Lab Interpretation Abnormal (test code = 78003-0) [facility]IDE [id number] 11:27:00 Test Item Value Reference Range Interpretation Comments GLUCOSE BEDSIDE TESTING (test code 109 mg/dL 70-110 N = GLUBED) BASIC METABOLIC [id number] 08:09:00 Test Item Value Reference Range Interpretation [...] CA) 9.5 MG/DL 8.5-10.1 N GLUCOSE BEDSIDE [id number] 07:15:00 Test Item Value Reference Range Interpretation Comments GLUCOSE BEDSIDE TESTING (test code 102 mg/dL 70-110 N = GLUBED) GLUCOSE BEDSIDE [id number] 23:04:00 Test Item Value Reference Range Interpretation Comments GLUCOSE BEDSIDE TESTING (test code 127 mg/dL 70-110 H = GLUBED) GLUCOSE BEDSIDE [id number] 20:03:00 Test Item Value Reference Range Interpretation Comments GLUCOSE BEDSIDE TESTING (test code 149 mg/dL 70-110 H = GLUBED) GLUCOSE BEDSIDE [id number] 16:55:00 Test Item Value Reference Range Interpretation Comments GLUCOSE BEDSIDE TESTING (test code 110 mg/dL 70-110 N = GLUBED) GLUCOSE BEDSIDE [id number] 11:23:00 Test Item Value Reference Range Interpretation Comments GLUCOSE BEDSIDE TESTING (test code 173 mg/dL 70-110 H = GLUBED) GLUCOSE BEDSIDE [id number] 08:33:00 Test Item Value Reference Range Interpretation Comments GLUCOSE BEDSIDE TESTING (test code 107 mg/dL 70-110 N = GLUBED) DRUGS OF ABUSE SCREEN [id number] 06:11:00 Test Item Value Reference Range Interpretation [...] to interpret this result as normal/abnormal . [id number] 20:43:00 Test Item Value Reference Range Interpretation [...] Completed by Nursing: NO- CTA CHEST FOR [id number] 18:35:00 [facility] 1965 Sex: M Name: WILMER PARADA [facility] : 1965 Age/S: 55 / M [address] Unit #: [id number] Loc: [place] [address] Phys: Isac Rouse DO Acct: [id number] Dis Date: Status: REG ER PHONE #: [phone] Exam Date: 02/27/2021 1800 FAX #: Reason: chest pain, elevated ddimer EXAMS: CPT: [id number] [place] [address] Location of dictation: B2 CTA of the [...] 1 Signed Report (CONTINUED) Name: WILMER PARADA [facility] [place] : 1965 Age/S: 55 / M [address] Unit #: [id number] Loc: [place] [address] Phys: Isac Rouse DO Acct: [id number] Dis Date: Status: REG ER PHONE #: [phone] Exam Date: 02/27/2021 1800 FAX #: Reason: chest pain, elevated ddimer EXAMS: CPT: [id number] [place] [address] <Continued> at 1835 Reported and signed by: April Marsh M.D. CC: Isac Rouse DO Technologist:Caitlin Slaughter RT(R)(CT)(MRI) CTDI: DLP: Trnscb Date/Time: 02/27/2021 (183) Zena Orig Print D/T: S: 02/27/2021 (1838) PAGE 2 Signed ReportCOVID 19 INHOUSE AG 2021-02-27 14:54:00 Test Item Value Reference Range Interpretation Comments COVID 19 INHOUSE AG NEGATIVE Negative Per manu facturer, (test code = negative result s should [id number]) be treated aspr esumptive and, if inconsi [...] nicalsigns and symptoms co nsistent with COVID-19. [id number] 13:38:00 Test Item Value Reference Range Interpretation [...] APPROPRIATECLIN ICAL EUALUATIONS. - XR CHEST 1 [id number] 13:35:00 [facility] 1965 Sex: M Name: WILMER PARADA [facility] : 1965 Age/S: 55 / M [address] Unit #: [id number] Loc: [place] [address] Phys: Isac Rouse DO Acct: [id number] Dis Date: Status: REG ER PHONE #: [phone] Exam Date: 02/27/2021 1320 FAX #: Reason: chest pain EXAMS: CPT: [id number] XR CHEST 1 V 54695 Fluoro Time: DAP (Gy m2): Air Kerma [...] the chest with no acute findings. at 6175 Reported and signed by: April Marsh M.D. CC: Isac Davis PAGE 1 S[facility] 1965 Age/S: 55/ M [address] Unit #: [id number] Loc: [place] [address] Phys: Isac Rouse DO Acct: [id number] Dis Date: Status: REG ER PHONE #: [phone] Exam Date: 02/27/2021 1320 FAX #: Reason: chest pain EXAMS: CPT: [id number] XR CHEST 1 V 45823 Fluoro Time:DAP (Gy m2): Air Kerma (mGy): <Continued> Technologist: Bandar Tirado RT(R)(CT) Trnscb Date/Time: 02/27/2021 (3874) tKEVIN Orig Print D/T: S: 02/27/2021 (1293) PAGE 2 Signed ReportBASIC METABOLIC [id number] 13:29:00 Test Item Value Reference Range Interpretation [...] CK) Completed by Nursing: NONT PRO-BRAIN NATRIURETIC [id number] 13:29:00 Test Item Value Reference Range Interpretation Comments NT PRO-BRAIN NATRIURETIC PEPTI 1727 PG/ML 0-100 H (test code = PROBNP) Completed by Nursing: [id number] 13:29:00 Test Item Value Reference Range Interpretation [...] yby method. 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 [facility] [id number] 08:13:00 Test Item Value Reference Range Interpretation Comments GLUBED (test code = 101 MG/DL 70-110 N Performe d by certified GLUBED) 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 [facility] [id number] 07:50:00 Test Item Value Reference Range Interpretation Comments HGBA1C% (test code = HGBA1C%) 5.9 %A1C 4.8-6.0 N BASIC METABOLIC [id number] 07:33:00 Test Item Value Reference Range Interpretation [...] mg/dL 8.0-10.5 N CA) TSH REFLEX TO [id number] 07:33:00 Test Item Value Reference Range Interpretation Comments TSH REFLEX TO FT4 (test code = 0.50 IU/mL 0.42-5.47 N TSHREFLEX) BASIC METABOLIC [id number] 07:28:00 Test Item Value Reference Range Interpretation [...] mg/dL 8.0-10.5 N CA) TSH REFLEX TO [id number] 07:28:00 Test Item Value Reference Range Interpretation Comments TSH REFLEX TO FT4 (test code = IU/mL 0.42-5.47 TSHREFLEX) CBC W/AUTO [id number] 07:23:00 Test Item Value Reference Range Interpretation [...] DIFF REQUIRED (test code NO = MDIFF) [id number] 20:49:00 Test Item Value Reference Range Interpretation Comments GLUBED (test code = 129 MG/DL 70-110 H Performe d by certified GLUBED) 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 terol [facility] Adult Treatment Panel III CBC W/AUTO [id number] 04:22:00 Test Item Value Reference Range Interpretation [...] (test code NO = MDIFF) CBC W/AUTO [id number] 04:21:00 Test Item Value Reference Range Interpretation [...] MANUAL DIFF REQUIRED (test code = MDIFF) [id number] 00:46:00 Test Item Value Reference Range Interpretation [...] results may suzy y by method. LIPOPROTEIN [id number] 22:00:00 Test Item Value Reference Range Interpretation Comments LIPOPROTEIN LDL 166.8 mg/dL 0-100 H <100 OPT [id number] (test code = LDL) NEAR OPTI MAL/ABOVE [id number] OGERQOHEAO750-1 89 HIGH>SN=765 VE RY HIGH*Guidelines provided by the [facility] [id number] 21:44:00 Test Item Value Reference Range Interpretation [...] titative results may suzy y by method. [id number] 21:34:00 Test Item Value Reference Range Interpretation Comments GLUBED (test code = 94 MG/DL 70-110 N Performe d by certified GLUBED) 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 [facility] UA RFLX MICR CULT IF [id number] 18:05:00 Test Item Value Reference Range Interpretation [...] Indication for culture: Dysuria/FrequencyDRUGS OF ABUSE SCREEN [id number] 18:05:00 Test Item Value Reference Range Interpretation [...] mated code = BARBITURN) SCcutoff message] T system which generated this [...] Indication for culture: Dysuria/FrequencyDRUGS OF ABUSE SCREEN [id number] 17:28:00 Test Item Value Reference Range Interpretation Comments URN COCAINE (test code = SCcutoff See_Comment [A utomated message] COCAURN) The system Teralynk generated this result transmit breanne reference range [...] See_Comment [A utomated message] OPIATURN) The system Teralynk generated this result transmit breanne reference range [...] [A utomated message] = METHAURN) The system Teralynk generated this result transmit breanne reference range [...] Indication for culture: Dysuria/FrequencyDRUGS OF ABUSE SCREEN [id number] 17:23:00 Test Item Value Reference Range Interpretation [...] See_Comment [A utomated message] OPIATURN) The system Teralynk generated this result transmit breanne reference range [...] [A utomated message] = METHAURN) The system Teralynk generated this result transmit breanne reference range : <300 NG/ML. The reference range was not used to interpret this result as normal/abnormal . Indication for culture: Dysuria/Frequency- CTA CHEST FOR [id number] 16:11:00[facility] : 1965 Sex: M Name: WILMER PARDAA [facility] : 1965 Age/S: 55 / M [address] Unit #: [id number] Loc: [place] [address] Phys: Isac Rouse DO Acct: [id number] Dis Date: Status: REG ER PHONE #: [phone] Exam Date: 02/04/2021 1540 FAX #: Reason: chest pain EXAMS: CPT: [id number] CTA CHEST FOR PE EXAM: - CTA [...] Signed Report (CONTINUED) Name: [facility]IL[facility] PARADA [facility] [place] : 1965 Age/S: 55 / M [address] Unit #: [id number] Loc: [place] [address] Phys: Isac Rouse DO Acct: [id number] Dis Date: Status: REG ER PHONE #: [phone] Exam Date: 02/04/2021 1540 FAX #: Reason: chest pain EXAMS: CPT: [id number] CTA CHEST FOR PE <Continued> BONES: No acute osseous findings. Mild thoracic texture scoliosis. IMPRESSION: 1. No pulmonary embolism. No acute findings throughout the lungs. 2. Borderline dilated heart chambers. at 1611 Reported and signed by:Luis Rogers D.O. CC: Isac Rouse DO; Afua DARNELL Technologist:Carmen Ruggiero, RT(R) CTDI: DLP: Trnscb Date/Time: 02/04/2021 (4381) nikoleANGELIQUEJW22 Orig Print D/T: S: 02/04/2021 (7258) PAGE 2 Signed ReportD-DIMER 2021-02-04 14:30:00 Test Item Value Reference Range Interpretation Comments D-DIMER (test code = DDIMER) 979 ng/mLFEU 215-500 HH BASIC METABOLIC [id number] 14:03:00 Test Item Value Reference Range Interpretation [...] Unit/L 26-192 H CK) Completed by Nursing: [id number] 14:03:00 Test Item Value Reference Range Interpretation Comments TROPONIN-I (test 0.089 NG/ML 0.000-0.045 Negative: < /= 0.045 code = TROPI) Positive: >/= 0.046 Correlation wit h serial results, other cardiac markers, and cl inical findings is nec essary to determine the c linical significance of this result. Quantit ative results using d adrianaent methodologies s hould not be compared to one another as nume rical results may suzy yby method. Completed by Nursing: NOCOVID 19 INHOUSE [id number] 13:50:00 Test Item Value Reference Range Interpretation Comments COVID 19 INHOUSE AG NEGATIVE Negative Per manu facturer, (test code = negative result s should [id number]) be treated aspr esumptive and, if inconsi [...] nsistent with COVID-19. - XR CHEST 1 [id number] 13:44:00 [facility] : 1965 Sex: M Name: WILMER PARADA [facility] : 1965 Age/S: 55 / M [address] Unit #: [id number] Loc: [place] [address] Phys: Isac Rouse DO Acct: [id number] Dis Date: Status: PRE ER PHONE #: [phone] Exam Date: 02/04/2021 1188 FAX #: Reason: chest pain EXAMS: CPT: [id number] XR CHEST 1 V 75974 Fluoro Time: DAP (Gy m2): Air Kerma [...] PAGE 1 Signed Report Name: WILMER PARADA [facility] [place] : 1965 Age/S: 55 / M [address] Unit #: [id number] Loc: [place] [address] Phys: Isac Rouse DO Acct: [id number] Dis Date: Status: PRE ER PHONE #: [phone] Exam Date: 02/04/2021 1326 FAX #: Reason: chest pain EXAMS: CPT: [id number] XR CHEST 1 V 03513 Fluoro Time: DAP (Gy m2): Air Kerma (mGy): <Continued> Technologist: RT Stephanie(R) Trnscb Date/Time: 02/04/2021 (6064) VikramRK5 Orig Print D/T: S: 02/04/2021 (6634) PAGE 2 Signed ReportCBC W/O [id number] 13:36:00 Test Item Value Reference Range Interpretation [...] 10.90 fL 7.0-9.6 H MPV) BASIC METABOLIC [id number] 12:58:00 Test Item Value Reference Range Interpretation [...] CA) 9.0 MG/DL 8.5-10.1 N CBC W/AUTO [id number] 12:51:00 Test Item Value Reference Range Interpretation [...] LIPOPROTEIN LDL 119 MG/DL 0-129 N <100 JILYKLF009 - (test code = LDL) 129 CELI R OPTIMAL/ABOVE KOCVPVS024 - 15 9 TIVVCKLJBB438 - 189 HIGH>OR= 190 VERY HIGHNOTE THAT G UIDELINES ARE PROVIDED BY NATIONAL CHOLESTEROLEDUC ATION PROGRAM ADULT T REATMENT PANEL III LDL/HDL (test code 3.05 Ratio See_Comment N [Automat ed message] The = LDL/HDL) system which [employer] nerated this result tra nsmitted reference range : 1.48-3.22 Avg. The reference range was not used to interpr et this result as normal/abnormal . GLYCOSYLATED HEMOGLOBIN [id number] 12:24:00 Test Item Value Reference Range Interpretation Comments GLYCOSYLATED HEMOGLOBIN (HA1C) 5.8 % A1C 0.0-5.7 H (test code = GLYHGB) ESTIMATED AVERAGE GLUCOSE (test 120 MG/DLest code = EAG) GLUCOSE BEDSIDE [id number] 12:05:00 Test Item Value Reference Range Interpretation Comments GLUCOSE BEDSIDE TESTING (test code 151 mg/dL 70-110 H = GLUBED) - XR CHEST 1 [id number] 11:05:00 [facility] : 1965 Sex: M Name: WILMER PARADA [facility]ly [facility] : 1965 Age/S: 55 / M [address] Unit #: [id number] Loc: [place] [address] Phys: KarthikeyanRosinaimmanuel GONZALEZ Acct: [id number] Dis Date: Status: ADM IN PHONE #: [phone] Exam Date: 01/07/2021 1050 FAX #: Reason: Cough EXAMS: CPT: [id number] XR CHEST 1 V 34559 Fluoro Time: DAP (Gy m2): Air Kerma [...] PAGE 1 Signed Report Name: WILMER PARADA [place] : 1965 Age/S: 55 / M [address] Unit #: [id number] Loc: [place] [address] Phys: Donovan NapierCHANDRA Acct: [id number] Dis Date: Status: ADM IN PHONE #: [phone] Exam Date: 01/07/2021 1050 FAX #: Reason: Cough EXAMS: CPT: [id number] XR CHEST 1 V 64604 Fluoro Time: DAP (Gy m2): Air Kerma (mGy): <Continued> Technologist: Jonna Ramirez RT(R)(MR) Trnscb Date/Time: 01/07/2021 (1105) tANGELIQUEPE1 Orig Print D/T: S: 01/07/2021 (110) PAGE 2 Signed ReportGLUCOSE BEDSIDE [id number] 08:05:00 Test Item Value Reference Range Interpretation Comments GLUCOSE BEDSIDE TESTING (test code 105 mg/dL 70-110 N = GLUBED) GLUCOSE BEDSIDE [id number] 21:27:00 Test Item Value Reference Range Interpretation Comments GLUCOSE BEDSIDE TESTING (test code 100 mg/dL 70-110 N = GLUBED) GLUCOSE BEDSIDE [id number] 16:40:00 Test Item Value Reference Range Interpretation Comments GLUCOSE BEDSIDE TESTING (test code = 89 mg/dL 70-110 N GLUBED) GLUCOSE BEDSIDE [id number] 12:10:00 Test Item Value Reference Range Interpretation Comments GLUCOSE BEDSIDE TESTING (test code = 94 mg/dL 70-110 N GLUBED) GLUCOSE BEDSIDE [id number] 07:51:00 Test Item Value Reference Range Interpretation Comments GLUCOSE BEDSIDE TESTING (test code 102 mg/dL 70-110 N = GLUBED) GLUCOSE BEDSIDE [id number] 20:30:00 Test Item Value Reference Range Interpretation Comments GLUCOSE BEDSIDE TESTING (test code = 98 mg/dL 70-110 N GLUBED) GLUCOSE BEDSIDE [id number] 15:39:00 Test Item Value Reference Range Interpretation Comments GLUCOSE BEDSIDE TESTING (test code 102 mg/dL 70-110 N = GLUBED) - CT ANGIO [id number] 14:06:00 [facility] : 1965 Sex: M Name: WILMER PARADA [facility] : 1965 Age/S: 55 / M [address] Unit #: [id number] Loc: [place] [address] Phys: Anabela Le MD Acct: [id number] Dis Date: Status: ADM IN PHONE #: [phone] Exam Date: 01/05/2021 2443 FAX #: Reason: CVA EXAMS: CPT: [id number] CT ANGIO NECK [address] Exam: - CT ANGIO HEAD, - CT [...] Signed Report (CONTINUED) Name: WILMER PARADA [facility] [place] : 1965 Age/S: 55 / M [address] Unit #: [id number] Loc: [place] [address] Phys: Anabela Le MD Acct: [id number] Dis Date: Status: ADM IN PHONE #: [phone] Exam Date: 01/05/2021 2480 FAX #: Reason: CVA EXAMS: CPT: [id number] CT ANGIO NECK [address] <Continued> visualized fascial planes ofthe neck are [...] 2 Signed Report (CONTINUED) Name: WILMER PARADA [facility] [place] : 1965 Age/S: 55 / M [address] Unit #: [id number] Loc: [place] [address] Phys: Anabela Le MD Acct: [id number] Dis Date: Status: ADM IN PHONE #: [phone] Exam Date: 01/05/2021 1335 FAX #: Reason: CVA EXAMS: CPT: [id number] CT ANGIO NECK [address] <Continued> Posterior communicating arteries: Not visualized Distal [...] 3 Signed Report (CONTINUED) Name: WILMER PARADA [place] : 1965 Age/S: 55 / M [address] Unit #: [id number] Loc: [place] [address]Aa[place]: Anabela Le MD Acct: [id number] Dis Date: Status: ADM IN PHONE #: [phone] Exam Date: 01/05/2021 1335 FAX #: Reason: CVA EXAMS: CPT: [id number] CT ANGIO NECK [address] <Continued> CC: Anabela Le MD; Yared Scott MD Technologist:Criss Sahni, RT(R)(CT); .. CTDI: DLP: Trnscb Date/Time: 01/05/2021 (1406) t.AL7 Orig Print D/T: S: 01/05/2021 (1410) PAGE 4 Signed Report- CT ANGIO [id number] 14:06:00 [facility] : 1965 Sex: M Name: WILMER PARADA [facility] [place] : 1965 Age/S: 55 / M [address] Unit #: [id number] Loc: [place] [address] Phys: Anabela Le MD Acct: [id number] Dis Date: Status: ADM IN PHONE #: [phone] Exam Date: 01/05/2021 1330 FAX #: Reason: CVA EXAMS: CPT: [id number] CT ANGIO HEAD [address] Exam: - CT ANGIO HEAD, - CT [...] Signed Report (CONTINUED) Name: WILMER PARADA [facility] : 1965 Age/S: 55 / M [address] Unit #: [id number] Loc: [place] [address] Phys: Anabela Le MD Acct: [id number] Dis Date: Status: ADM IN PHONE #: [phone] Exam Date: 01/05/2021 1330 FAX #: Reason: CVA EXAMS: CPT: [id number] CT ANGIO HEAD [address] <Continued> visualized fascial planes ofthe neck are [...] 2 Signed Report (CONTINUED) Name: WILMER PARADA [facility] : 1965 Age/S: 55 / M [address] Unit #: [id number] Loc: [place] [address] Phys: Anabela Le MD Acct: [id number] Dis Date: Status: ADM IN PHONE #: [phone] Exam Date: 01/05/2021 1330 FAX #: Reason: CVA EXAMS: CPT: [id number] CT ANGIO HEAD [address] <Continued> Posterior communicating arteries: Not visualized Distal [...] 3 Signed Report (CONTINUED) Name: WILMER PARADA [facility] : 1965 Age/S: 55 / M [address] Unit #: [id number] Loc: [place], [place] [address]Kiat: Anabela Le MD Acct: [id number] Dis Date: Status: ADM IN PHONE #: [phone] Exam Date: 01/05/2021 1339 FAX #: Reason: CVA EXAMS: CPT: [id number] CT ANGIO HEAD [address] <Continued> CC: Anabela Le MD; Yared Scott MD Technologist:Criss Sahni, RT(R)(CT); .. CTDI: DLP: Trnscb Date/Time: 01/05/2021 (1406) t.SYEDR.AL7 Orig Print D/T: S: 01/05/2021 (4580) PAGE 4 Signed ReportBASIC METABOLIC [id number] 12:38:00 Test Item Value Reference Range Interpretation [...] CA) 9.0 MG/DL 8.5-10.1 N CBC W/AUTO [id number] 12:28:00 Test Item Value Reference Range Interpretation [...] code NO DIFF/SCN CRITERIA = MDIFF) PROTHROMBIN [id number] 12:27:00 Test Item Value Reference Range Interpretation Comments PT PATIENT (test code = PTP) 12.1 SECONDS 9.3-12.9 N INTERNATIONAL NORMAL RATIO 1.08 INR Unit 0.8-1.2 N (test code = INR) THROMBOPLASTIN TIME [id number] 12:27:00 Test Item Value Reference Range Interpretation Comments THROMBOPLASTIN TIME PARTIAL 33.0 SECONDS 26-35 N (test code = PTT) GLUCOSE BEDSIDE [id number] 11:56:00 Test Item Value Reference Range Interpretation Comments GLUCOSE BEDSIDE TESTING (test code 101 mg/dL 70-110 N = GLUBED) - CT HEAD/BRAIN W/O [id number] 11:53:00 [facility] : 1965 Sex: M Name: WILMER PARADA [facility] : 1965 Age/S: 55 / M [address] Unit #: [id number] Loc: [place] [address] Phys: Susan Conway MD Acct: [id number] Dis Date: Status: ADM IN PHONE #: [phone] Exam Date: 01/05/2021 1131 FAX #: Reason: left sided weakness EXAMS: CPT: [id number] CT HEAD/BRAIN W/O CONT 70973 EXAM: CT Head without contrast Location: B2 [...] Signed Report (CONTINUED) Name: WILMER PARADA [facility] : 1965 Age/S: 55 / M [address] Unit #: [id number] Loc: [place] [address] Phys: Susan Conway MD Acct: [id number] Dis Date: Status: ADM IN PHONE #: [phone] Exam Date: 01/05/2021 1138 FAX #: Reason: left sided weakness EXAMS: CPT: [id number] CT HEAD/BRAIN W/O CONT 93034 <Continued> on 01/05/2021 FOR INTERNAL CODING PURPOSES ONLY RESULT CODE: CVR at 1153 Reported and signed by: Diego Paez M.D. CC:Susan Conway MD; Yared Scott MD Technologist:Criss Sahni, RT(R)(CT); .. CTDI: DLP: Trnscb Date/Time: 01/05/2021 (1153) [email or web address] Orig Print D/T: S: 01/05/2021 (8745) PAGE 2 Signed ReportGLUCOSE BEDSIDE [id number] 07:54:00 Test Item Value Reference Range Interpretation Comments GLUCOSE BEDSIDE TESTING (test code 118 mg/dL 70-110 H = GLUBED) GLUCOSE BEDSIDE [id number] 21:52:00 Test Item Value Reference Range Interpretation Comments GLUCOSE BEDSIDE TESTING (test code = 98 mg/dL 70-110 N GLUBED) GLUCOSE BEDSIDE [id number] 15:47:00 Test Item Value Reference Range Interpretation Comments GLUCOSE BEDSIDE TESTING (test code 124 mg/dL 70-110 H = GLUBED) GLUCOSE BEDSIDE [id number] 11:34:00 Test Item Value Reference Range Interpretation Comments GLUCOSE BEDSIDE TESTING (test code 107 mg/dL 70-110 N = GLUBED) GLUCOSE BEDSIDE [id number] 07:37:00 Test Item Value Reference Range Interpretation Comments GLUCOSE BEDSIDE TESTING (test code 109 mg/dL 70-110 N = GLUBED) BASIC METABOLIC [id number] 04:53:00 Test Item Value Reference Range Interpretation [...] code = CA) 8.7 MG/DL 8.5-10.1 N [id number] 04:53:00 Test Item Value Reference Range Interpretation Comments PHOSPHOROUS (test code = PHOS) 3.8 MG/DL 2.5-4.9 N [id number] 04:53:00 Test Item Value Reference Range Interpretation Comments MAGNESIUM (test code = MAG) 2.1 MG/DL 1.8-2.4 N NT PRO-BRAIN NATRIURETIC [id number] 04:53:00 Test Item Value Reference Range Interpretation Comments NT PRO-BRAIN NATRIURETIC PEPTI 753 PG/ML 0-100 H (test code = PROBNP) BASIC METABOLIC [id number] 04:47:00 Test Item Value Reference Range Interpretation [...] code = CA) 8.7 MG/DL 8.5-10.1 N [id number] 04:47:00 Test Item Value Reference Range Interpretation Comments PHOSPHOROUS (test code = PHOS) MG/DL 2.5-4.9 [id number] 04:47:00 Test Item Value Reference Range Interpretation Comments MAGNESIUM (test code = MAG) 2.1 MG/DL 1.8-2.4 N NT PRO-BRAIN NATRIURETIC [id number] 04:47:00 Test Item Value Reference Range Interpretation Comments NT PRO-BRAIN NATRIURETIC PEPTI (test PG/ML 0-100 code = PROBNP) CBC W/AUTO [id number] 04:34:00 Test Item Value Reference Range Interpretation [...] NO DIFF/SCN CRITERIA = MDIFF) GLUCOSE BEDSIDE [id number] 22:32:00 Test Item Value Reference Range Interpretation Comments GLUCOSE BEDSIDE TESTING (test code = 88 mg/dL 70-110 N GLUBED) GLUCOSE BEDSIDE [id number] 17:59:00 Test Item Value Reference Range Interpretation Comments GLUCOSE BEDSIDE TESTING (test code = 97 mg/dL 70-110 N GLUBED) - XR CHEST 1 [id number] 17:25:00 [facility] : 1965 Sex: M Name: WILMER PARADA [facility] : 1965 Age/S: 55 / M [address] Unit #: [id number] Loc: [place] [address] Phys: KarthikeyanRosinao AGACNP Acct: [id number] Dis Date: Status: ADM IN PHONE #: [phone] Exam Date: 01/03/2021 1518 FAX #: Reason: Dyspnea EXAMS: CPT: [id number] XR CHEST 1 V 05355 Fluoro Time: DAP (Gy m2): Air Kerma [...] PARADA : 1965 Age/S: 55 / M [address] Unit #: [id number] Loc: [place] [address] Phys: Rolando Napier Acct: [id number] Dis Date: Status: ADM IN PHONE #: [phone] Exam Date: 01/03/2021 2310 FAX #: Reason: Dyspnea EXAMS: CPT: [id number] XR CHEST 1 V 42263 Fluoro Time: DAP (Gy m2): Air Kerma (mGy): <Continued> Technologist: Polly Mcnamara, RT(R)(CT); Nikole Rider, RT(R) Trnscb Date/Time: 01/03/2021 (172) 16 Orig Print D/T: S: 01/03/2021 (1709) PAGE 2 Signed ReportBASIC METABOLIC PANEL 2021-01-03 [...] 8.9 MG/DL 8.5-10.1 N Completed by Nursing: [id number] 14:57:00 Test Item Value Reference Range Interpretation [...] method. Completed by Nursing: NOCOVID 19 INHOUSE [id number] 14:55:00 Test Item Value Reference Range Interpretation Comments COVID 19 INHOUSE AG NEGATIVE Negative Per manu facturer, (test code = negative result s should ZSQVS80ACNP) be treated aspr esumptive and, if inconsi [...] co nsistent with COVID-19. Spec Comments: NPROTHROMBIN [id number] 14:54:00 Test Item Value Reference Range Interpretation Comments PT PATIENT (test code = PTP) 11.0 SECONDS 9.3-12.9 N INTERNATIONAL NORMAL RATIO 0.98 INR Unit 0.8-1.2 N (test code = INR) THROMBOPLASTIN TIME [id number] 14:54:00 Test Item Value Reference Range Interpretation Comments THROMBOPLASTIN TIME PARTIAL 30.0 SECONDS 26-35 N (test code = PTT) - CT ANGIO [id number] 14:53:00 [facility] 1965 Sex: M Name: WILMER PARADA : 1965 Age/S: 55 / M [address] Unit #: [id number] Loc: [place] [address] Phys: Musa Alfaro DO Acct: [id number] Dis Date: Status: REG ER PHONE #: [phone] Exam Date: 01/03/2021 1425 FAX #: Reason: left sided weakness EXAMS: CPT: [id number] CT ANGIO HEAD [address] B2 - CT ANGIO NECK, - CT [...] PARADA : 1965 Age/S: 55 / M [address] Unit #: [id number] Loc: [place] [address] Phys: Musa Alfaro DO Acct: [id number] Dis Date: Status: REG ER PHONE #: [phone] Exam Date: 01/03/2021 1425 FAX #: Reason: left sided weakness EXAMS: CPT:[id number] CT ANGIO HEAD [address] <Continued> Both posterior cerebral arteries are normal. [...] RT(R) CTDI: DLP: Trnscb Date/Time: 01/03/2021 (1452) tKATELINR.VB7 Orig Print D/T: S: 01/03/2021 (4267) PAGE 2 Signed Report- CT ANGIO [id number] 14:53:00 [facility] : 1965 Sex: M Name: WILMER PARADA [facility] : 1965 Age/S: 55 / M [address] [address] Unit #: [id number] Loc: [place] [address] Phys: Musa Alfaro DO Acct: [id number] Dis Date: Status: REG ER PHONE #: [phone] Exam Date: 01/03/2021 1421 FAX #: Reason: left sided weakness EXAMS: CPT: [id number] CT ANGIO NECK [address] B2 - CT ANGIO NECK, - CT [...] Signed Report (CONTINUED) Name: WILMER PARADA [facility] : 1965 Age/S: 55 / M [address] [facility] [address] Unit #: [id number] Loc: [place] [address] Phys: Musa Alfaro DO Acct: [id number] Dis Date: Status: REG ER PHONE #: [phone] Exam Date: 01/03/2021 3905 FAX #: Reason: left sided weakness EXAMS: CPT:[id number] CT ANGIO NECK [address] <Continued> Both posterior cerebral arteries are normal. [...] Rider, RT(R) CTDI: DLP: Trnscb Date/Time: 01/03/2021 (523) VikramVB7 Orig Print D/T: S: 01/03/2021 (7490) PAGE 2 Signed ReportCBC W/O [id number] 14:32:00 Test Item Value Reference Range Interpretation [...] 7.0-9.6 H MPV) - CT HEAD/BRAIN W/O [id number] 14:20:00 [facility] : 1965 Sex: M Name: WILMER PARADA [facility] : 1965 Age/S: 55 / M [address] [address] Unit #: [id number] Loc: [place] [address] Phys: DominicMusa Cespedes DO Acct: [id number] Dis Date: Status: PRE ER PHONE #: [phone] Exam Date: 01/03/2021 1409 FAX #: Reason: Code Stroke EXAMS: CPT: [id number] CT HEAD/BRAIN W/O CONT 97574 EXAMINATION: Head CT without contrast INDICATION: Code stroke COMPARISON: 11/29/2020 LOCATION: S17 TECHNIQUE: Axial noncontrast head CT was performed. Sagittal and coronal reformatted images were created. CT radiation dose optimization is achieved for this examination by the use of a CT protocol in accordance with ACR practice guidelines and adherence to income tax adjuster recommendations. DLP: 836 mGy-cm. FINDINGS: Mild-moderate supratentorial [...] La CTDI: DLP: Trnscb Date/Time: 01/03/2021 (1420) t.SYEDR.PE1 Orig Print D/T: S: 01/03/2021 (2989) PAGE 1 Signed ReportGLUCOSE BEDSIDE [id number] 11:35:00 Test Item Value Reference Range Interpretation Comments GLUCOSE BEDSIDE TESTING (test code 115 MG/DL 70-119 N = GLUBED) CBC W/AUTO [id number] 09:54:00 Test Item Value Reference Range Interpretation [...] 0.00 K/mm3 0.00-0.05 N NRBC#) RECOLLECTGLUCOSE BEDSIDE [id number] 07:34:00 Test Item Value Reference Range Interpretation Comments GLUCOSE BEDSIDE TESTING (test code 116 MG/DL 70-119 N = GLUBED) BASIC METABOLIC [id number] 06:24:00 Test Item Value Reference Range Interpretation [...] (test code = MG Index/DL The system [employer]) generated this result transmit breanne reference range [...] to interpret this result as normal/abnormal . [id number] 06:24:00 Test Item Value Reference Range Interpretation Comments MAGNESIUM (test code = MAG) 2.3 MG/DL 1.6-2.6 N GLUCOSE BEDSIDE [id number] 20:37:00 Test Item Value Reference Range Interpretation Comments GLUCOSE BEDSIDE TESTING (test code 118 MG/DL 70-119 N = GLUBED) GLUCOSE BEDSIDE [id number] 16:47:00 Test Item Value Reference Range Interpretation Comments GLUCOSE BEDSIDE TESTING (test code 100 MG/DL 70-119 N = GLUBED) GLUCOSE BEDSIDE [id number] 07:44:00 Test Item Value Reference Range Interpretation Comments GLUCOSE BEDSIDE TESTING (test code 121 MG/DL 70-119 H = GLUBED) GLUCOSE BEDSIDE [id number] 19:59:00 Test Item Value Reference Range Interpretation Comments GLUCOSE BEDSIDE TESTING (test code 135 MG/DL 70-119 H = GLUBED) GLUCOSE BEDSIDE [id number] 15:51:00 Test Item Value Reference Range Interpretation Comments GLUCOSE BEDSIDE TESTING (test code = 85 MG/DL 70-119 N GLUBED) - NM MYOCRD SPECT R/S [id number] 13:57:00 [facility] : 1965 Sex: M ------- Patient Name: WILMER PARADA Unit No: [id number] EXAMS: CPT CODE: [id number] NM MYOCRD SPECT R/S MULT [id number] Patient was brought to the stress test [...] CC: Alexa DELA CRUZ CNP,SIVAN Montelongo; Jake Harris NAME: [employer] PHYS: Alexa Farrell APRN[address] : 1965 AGE: 54 SEX: [place], [place] [address] LOC: B245 W PHONE #: [phone] EXAM DATE: 12/01/2020 STATUS: ADM IN FAX #: [phone] RAD NO: DC Dt: PAGE 1 Signed Report Patient Name: TALFanmode Unit No: [id number] EXAMS: CPT CODE: [id number] NM MYOCRD SPECT R/S MULT [id number] <Continued> Technologist: Macy Sepulveda Transcribed Date/Time: 12/03/2020 (0906)- VikramAA6 Orig Print D/T: S: 12/03/2020 (1400) EMILY Chamorro NAME: [employer] PHYS: Alexa Farrell LANIE,C [address] [place] [address] BLVD : 1965 AGE: 54 SEX: Kenrick CHAMORRO, [place] [address] LOC: [place] [facility] PHONE #: [phone] EXAM DATE: 12/01/2020 STATUS: ADM IN FAX #: [phone] RAD NO: DC Dt: PAGE 2 Signed ReportGLUCOSE BEDSIDE [id number] 11:46:00 Test Item Value Reference Range Interpretation Comments GLUCOSE BEDSIDE TESTING (test code 114 MG/DL 70-119 N = GLUBED) [id number] 07:43:00 Test Item Value Reference Range Interpretation Comments CKMB (test code = 1.1 NG/ML 1.0-3.6 N MONOCLONAL CKMB CKMBT) METHODOLOGY. [id number] 07:43:00 Test Item Value Reference Range Interpretation [...] changes in trop onin levelscharacter istic of [place]. GLUCOSE BEDSIDE [id number] 07:35:00 Test Item Value Reference Range Interpretation Comments GLUCOSE BEDSIDE TESTING (test code 104 MG/DL 70-119 N = GLUBED) [id number] 07:24:00 Test Item Value Reference Range Interpretation Comments CKMB (test code = CKMBT) NG/ML 1.0-3.6 [id number] 07:24:00 Test Item Value Reference Range Interpretation [...] changes in trop onin levelscharacter istic of [place]. BASIC METABOLIC [id number] 06:50:00 Test Item Value Reference Range Interpretation [...] message] (test code = Index/DL The system [employer] HEMINDEX) generated this result transmit breanne reference [...] to interpret this result as normal/abnormal . [id number] 06:50:00 Test Item Value Reference Range Interpretation Comments MAGNESIUM (test code = MAG) 2.2 MG/DL 1.6-2.6 N BASIC METABOLIC [id number] 06:24:00 Test Item Value Reference Range Interpretation [...] message] (test code = Index/DL The system [employer]) generated this result transmit breanne reference range [...] to interpret this result as normal/abnormal . [id number] 06:24:00 Test Item Value Reference Range Interpretation Comments MAGNESIUM (test code = MAG) MG/DL 1.6-2.6 GLUCOSE BEDSIDE [id number] 19:35:00 Test Item Value Reference Range Interpretation Comments GLUCOSE BEDSIDE TESTING (test code 130 MG/DL 70-119 H = GLUBED) GLUCOSE BEDSIDE [id number] 16:35:00 Test Item Value Reference Range Interpretation Comments GLUCOSE BEDSIDE TESTING 103 MG/DL 70-119 N Noti fied Nurse~ (test code = GLUBED) GLUCOSE BEDSIDE [id number] 12:00:00 Test Item Value Reference Range Interpretation Comments GLUCOSE BEDSIDE TESTING 128 MG/DL 70-119 H Noti fied Nurse~ (test code = GLUBED) GLUCOSE BEDSIDE [id number] 08:28:00 Test Item Value Reference Range Interpretation Comments GLUCOSE BEDSIDE TESTING 123 MG/DL 70-119 H Noti fied Nurse~ (test code = GLUBED) GLUCOSE BEDSIDE [id number] 19:40:00 Test Item Value Reference Range Interpretation Comments GLUCOSE BEDSIDE TESTING (test code = 84 MG/DL 70-119 N GLUBED) GLUCOSE BEDSIDE [id number] 16:53:00 Test Item Value Reference Range Interpretation Comments GLUCOSE BEDSIDE TESTING 100 MG/DL 70-119 N Noti fied Nurse~ (test code = GLUBED) GLUCOSE BEDSIDE [id number] 13:00:00 Test Item Value Reference Range Interpretation Comments GLUCOSE BEDSIDE TESTING (test code 128 MG/DL 70-119 H = GLUBED) GLUCOSE BEDSIDE [id number] 08:35:00 Test Item Value Reference Range Interpretation Comments GLUCOSE BEDSIDE TESTING (test code = 95 MG/DL 70-119 N GLUBED) GLUCOSE BEDSIDE [id number] 19:49:00 Test Item Value Reference Range Interpretation Comments GLUCOSE BEDSIDE TESTING (test code 117 MG/DL 70-119 N = GLUBED) GLUCOSE BEDSIDE [id number] 16:52:00 Test Item Value Reference Range Interpretation Comments GLUCOSE BEDSIDE TESTING (test code 103 MG/DL 70-119 N = GLUBED) GLUCOSE BEDSIDE [id number] 12:30:00 Test Item Value Reference Range Interpretation Comments GLUCOSE BEDSIDE TESTING (test code 121 MG/DL 70-119 H = GLUBED) GLUCOSE BEDSIDE [id number] 07:43:00 Test Item Value Reference Range Interpretation Comments GLUCOSE BEDSIDE TESTING (test code = 96 MG/DL 70-119 N GLUBED) COMPREHENSIVE METABOLIC [id number] 05:53:00 Test Item Value Reference Range Interpretation [...] (test code = MG Index/DL The system [employer] HEMINDEX) generated this result transmit breanne reference [...] to interpret this result as normal/abnormal . [id number] 05:53:00 Test Item Value Reference Range Interpretation Comments MAGNESIUM (test code = MAG) 2.2 MG/DL 1.6-2.6 N COMPREHENSIVE METABOLIC [id number] 05:38:00 Test Item Value Reference Range Interpretation [...] to interpret this result as normal/abnor mal. [id number] 05:38:00 Test Item Value Reference Range Interpretation Comments MAGNESIUM (test code = MAG) MG/DL 1.6-2.6 GLYCOSYLATED HEMOGLOBIN (HA1C)2020-11-30 05:21:00 Test Item Value Reference Range Interpretation Comments GLYCOSYLATED HEMOGLOBIN (HA1C) 5.9 % IS-A1C 4.5-5.6 H (test code = GLYHGB) Specimen comments: use blood sample in the labComments to Program Professional: use blood sample in the labCBC W/AUTO [id number] 05:12:00 Test Item Value Reference Range Interpretation [...] code = 0.00 K/mm3 0.00-0.05 N NRBC#) [id number] 00:17:00 Test Item Value Reference Range Interpretation Comments CKMB (test code = 1.4 NG/ML 1.0-3.6 N MONOCLONAL CKMB CKMBT) METHODOLOGY. [id number] 00:17:00 Test Item Value Reference Range Interpretation [...] changes in trop onin levelscharacter istic of [place]. [id number] 23:57:00 Test Item Value Reference Range Interpretation Comments CKMB (test code = CKMBT) NG/ML 1.0-3.6 [id number] 23:57:00 Test Item Value Reference Range Interpretation [...] changes in trop onin levelscharacter istic of [place]. GLUCOSE BEDSIDE [id number] 20:50:00 Test Item Value Reference Range Interpretation Comments GLUCOSE BEDSIDE TESTING (test code 126 MG/DL 70-119 H = GLUBED) [id number] 20:10:00 Test Item Value Reference Range Interpretation Comments CKMB (test code = 1.6 NG/ML 1.0-3.6 N MONOCLONAL CKMB CKMBT) METHODOLOGY. [id number] 20:10:00 Test Item Value Reference Range Interpretation [...] changes in trop onin levelscharacter istic of [place]. [id number] 19:57:00 Test Item Value Reference Range Interpretation Comments CKMB (test code = CKMBT) NG/ML 1.0-3.6 [id number] 19:57:00 Test Item Value Reference Range Interpretation [...] changes in trop onin levelscharacter istic of [place]. COVID 19 Asymptomatic IH [id number] 18:32:00 Test Item Value Reference Range Interpretation Comments COVID 19 Asymptomatic IH AG (test Negative Neg code = COVNONPUIAG) - CT ANGIO [id number] 17:08:00 [facility] 1965 Sex: M Patient Name: WILMER PARADA Unit No: [id number] EXAMS: CPT CODE: [id number] CT ANGIO HEAD [address] Dictation location: H37. CT ANGIOGRAM OF THE [...] is limited. No definite occlusion or aneurysm. [facility] [place] NAME: WILMER PARADA [address] [place] [address] PHYS: RADAMES OlmosJake Irena [place], [place] [address] : 1965 AGE: 54 SEX: M LOC: LISA PHONE #: [phone] EXAM DATE: 11/29/2020 STATUS: REG ER FAX #: [phone] RAD #: D/C DT PAGE 1 Signed Report (CONTINUED) Patient Name: WILMER PARADA Unit No: [id number] EXAMS: CPT CODE: [id number] CT ANGIO HEAD [address] <Continued> at 1708 Reported and signed by: Uriah Moran MD CC: Jake Olmos DO Dictated Date/Time: 11/29/2020 (1707) Technologist: Luisana Mederos CTDI: 73.04 DLP: 2044.21 Trnscrpt: 11/29/2020 (1707) VikramSP17 EMILY Chamorro NAME: [address] PHYS: ARVIN.Dinesh - NickolasJake [place] [address] : 1965 AGE: 54 SEX: M LOC: [facility] PHONE #: [phone] EXAM DATE: 11/29/2020 STATUS: [facility] ER FAX #: [phone] RAD #: D/C DT PAGE 2 Signed Report Patient Name: WILMER PARADA Unit No: [id number] EXAMS: CPT CODE: [id number] CT ANGIO HEAD [address] <Continued> Orig Print D/T: S: 11/29/2020 (171) EVERNoreen [place] NAME: [address] PHYS: ARVIN.Dinesh - [place] [address] : 1965 AGE: 54 SEX: M LOC: [facility] PHONE #: [phone] EXAM DATE: 11/29/2020 STATUS: REG ER FAX #: [phone] RAD #: D/C DT PAGE 3 Signed Report- CT ANGIO [id number] 17:08:00 [facility] : 1965 Sex: M Patient Name: WILMER PARADA Unit No: [id number] EXAMS: CPT CODE: [id number] CT ANGIO NECK [address]93 Dictation location: H37. CT ANGIOGRAM OF THE [...] is limited. No definite occlusion or aneurysm. [facility] [place] NAME: SCALES,[address] PHYS: Jake Benjamin, [place] [address] : 1965 AGE: 54 SEX: M LOC: [facility] PHONE #: [phone] EXAM DATE: 11/29/2020 STATUS: REG ER FAX #: [phone] RAD #: D/C DT PAGE 1 Signed Report (CONTINUED) Patient Name: WILMER PARADA Unit No: [id number] EXAMS: CPT CODE: [id number] CT ANGIO NECK [address]36 <Continued> at 1708 Reported and signed by: Uriah Moran MD CC: Jake Olmos DO Dictated Date/Time: 11/29/2020 (1708) Technologist: Luisana Mederos CTDI: 0 DLP: 0 Trnscrpt: 11/29/2020 (1708) [email or web address].[email or web address] EMILY Chamorro NAME: [address] PHYS: RADAMES - Jake Olmos, [place] [address] : 1965 AGE: 54 SEX: M LOC: [facility] PHONE #: [phone] EXAM DATE: 11/29/2020 STATUS: [facility] ER FAX #: [phone] RAD #: D/C DT PAGE 2 Signed Report Patient Name: WILMER PARADA Unit No: [id number] EXAMS: CPT CODE: [id number] CT ANGIO NECK [address] <Continued> Orig Print D/T: S: 11/29/2020 (1711) EMILY Chamorro NAME: [address] PHYS: Jake Benjamin, [place] [id number] : 1965 AGE: 54 SEX: M LOC: [facility] PHONE #: [phone] EXAM DATE: 11/29/2020 STATUS: REG ER FAX #: [phone] RAD #: D/C DT PAGE 3 Signed Report- XR CHEST 1 [id number] 11:48:00 [facility] 1965 Sex: M Name: WILMER PARADA [facility] : 1965 Age/S: 54 / M [address] Unit #: [id number] Loc: [place] [address] Phys: Maximino Ham MD Acct: [id number] Dis Date: Status: REG ER PHONE #: [phone] Exam Date: 11/29/2020 1108 FAX #: Reason: chest pain, stroke symptoms EXAMS: CPT: [id number] XR CHEST 1 V 04566 Fluoro Time: DAP (Gy m2): Air Kerma [...] PAGE 1 Signed Report Name: WILMER PARADA [facility] : 1965 Age/S: 54 / M [address] Unit #: [id number] Loc: [place] [address] Phys: Maximino Ham MD Acct: [id number] Dis Date: Status: REG ER PHONE #: [phone] Exam Date: 11/29/2020 1108 FAX #: Reason: chest pain, stroke symptoms EXAMS: CPT: [id number] XR CHEST 1 V 24368 Fluoro Time: DAP (Gy m2): Air Kerma (mGy): <Continued> Technologist: Bandar Tirado RT(R)(CT) Trnscb Date/Time: 11/29/2020 (1148) t.ANS4 Orig Print D/T: S: 11/29/2020 (3226) PAGE 2 Signed Report- CT ABD PELVIS [id number] 11:20:00 [facility] : 1965 Sex: M Name: WILMER PARADA [facility] : 1965 Age/S: 54 / M [address] Unit #: [id number] Loc: [place] [address] Phys: Maximino Ham MD Acct: [id number] Dis Date: Status: REG ER PHONE #: [phone] Exam Date: 11/29/2020 1046 FAX #: Reason: rule out dissection EXAMS: CPT: [id number] CT ABD PELVIS W/CONT 08963 LOCATION: T18 EXAM: CT CHEST WITH CONTRAST [...] Signed Report (CONTINUED) Name: WILMER PARADA [facility] : 1965 Age/S: 54 / M [address] Unit #: [id number] Loc: [place] [address] Phys: Maximino Ham MD Acct: [id number] Dis Date: Status: REG ER PHONE #: [phone] Exam Date: 11/29/2020 1046 FAX #: Reason: rule out dissection EXAMS: CPT: [id number] CT ABD PELVIS W/CONT 04368 <Continued> at 1120 Reported and signed by: Bill Lake M.D. CC: Maximino Ham MD Technologist:Gala Menard, RT(R); Nikole CTDI: DLP: Trnscb Date/Time: 11/29/2020 (1120) [email or web address] Orig Print D/T: S: 11/29/2020 (1123) PAGE 2 Signed Report- CT CHEST W/CONTRAST 2020-11-29 11:20:00 [facility] : 1965 Sex: M Name: WILMER PARADA [facility] : 1965 Age/S: 54 / M [address] Unit #: [id number] Loc: [place] [address] Phys: Maximino Ham MD Acct: [id number] Dis Date: Status: REG ER PHONE #: [phone] Exam Date: 11/29/2020 1056 FAX #: Reason: rule out dissection EXAMS: CPT: [id number] CT CHEST W/CONTRAST 12037 LOCATION: T18 EXAM: CT CHEST WITH CONTRAST [...] Signed Report (CONTINUED) Name: WILMER PARADA [facility] : 1965 Age/S: 54 / M [address] Unit #: [id number] Loc: [place] [address] Phys: Maximino Ham MD Acct: [id number] Dis Date: Status: REG ER PHONE #: [phone] Exam Date: 11/29/2020 1056 FAX #: Reason: rule out dissection EXAMS: CPT: [id number] CT CHEST W/CONTRAST 00400 <Continued> at 1120 Reported and signed by: Bill Lake M.D. CC: Maximino Ham MD Technologist:Gala Menard, RT(R); Nikole CTDI: DLP: Trnscb Date/Time: 11/29/2020 (1120) [email or web address] Orig Print D/T: S: 11/29/2020 (1123) PAGE 2 Signed Report- CT HEAD/BRAIN W/O CONT 2020-11-29 11:15:00 [facility] : 1965 Sex: M Name: WILMER PARADA [facility] : 1965 Age/S: 54 / M [address] Unit #: [id number] Loc: [place] [address] Phys: Maximino Ham MD Acct: [id number] Dis Date: Status: REG ER PHONE #: [phone] Exam Date: 11/29/2020 1045 FAX #: Reason: CVA symptoms EXAMS: CPT: [id number] CT HEAD/BRAIN W/O CONT 89164 EX AM: - CT HEAD/BRAIN W/O CONT [...] 11/29/2020 (1118) PAGE 1 Signed ReportCOMPREHENSIVE METABOLIC [id number] 10:03:00 Test Item Value Reference Range Interpretation [...] N code = ALKP) Completed by Nursing: [id number] 10:03:00 Test Item Value Reference Range Interpretation [...] yby method. Completed by Nursing: NOCBC W/AUTO [id number] 09:45:00 Test Item Value Reference Range Interpretation [...]
[2021-09-10 09:59] LABS: Absolute Lymphocytes (CBC) 1.8 K/uL (0.7-4.9); Hematocrit 42.5 % (39.6-49.0); Lymphocytes % 35.3 % (15.3-44.8); MPV 8.8 fL (7.6-11.3)
[2021-09-10 10:13] LABS: Protime INR 0.97
[2021-09-10] MEDS ORDERED: ASPIRIN 81 MG CHEWABLE TABLET ONE (10:16)
[2021-09-10] MEDS ORDERED: FUROSEMIDE 20 MG/ 2ML VIAL ONE ×2 (10:16→12:06)
[2021-09-10 10:19] LABS: ALT/SGPT 25 U/L (12-78); AST/SGOT 23 U/L (15-37); Albumin 3.4 g/dL (3.4-5.0); Alkaline Phosphatase 75 U/L (45-117); BUN Blood Urea Nitrogen 28 mg/dL (7-18); Bicarbonate 26 mmol/L (21-32); Bilirubin Direct < 0.1 mg/dL (0-0.2); Bilirubin Total 0.4 mg/dL (0.2-1.0); Glucose Level 103 mg/dL (74-106); NT PRO-BNP 3473 pg/mL (<125); Potassium 3.8 mmol/L (3.5-5.1); Sodium Level 140 mmol/L (136-145)
[2021-09-10] MEDS ORDERED: ONDANSETRON 4 MG/2 ML VIAL ONE (10:22)
[2021-09-10] MEDS ORDERED: MORPHINE 4 MG/ML SYR ONE (10:22)
--- NOTE | 2021-09-10 10:51 | RAD REPORT ---
EXAM DESCRIPTION: Rosa Single View09/10/2021 10:41 am CLINICAL HISTORY: Chest pain COMPARISON: 2020 FINDINGS: Mild bilateral pulmonary opacities. Marked cardiomegaly Pacemaker leads in place IMPRESSION: These findings probably indicate mild CHF
[2021-09-10] MEDS ORDERED: LABETALOL 20 MG/4ML SYRINGE IV ONE (11:39)
--- NOTE | 2021-09-10 11:50 | ER ---
Nurse's Notes [facility] Name: Bryan Watts Age: 55 yrs Sex: Male : 1965 Arrival Date: 09/10/2021 Time: 09:26 Bed 14 Private MD: Diagnosis: Chest pain, unspecified;Acute on chronic diastolic (congestive) heart failure Presentation: 09/10 09:35 Chief complaint: Patient states: SOB and CP x 3 days. Coronavirus screen: Vaccine jl7 status: Patient reports receiving the 2nd dose of the covid vaccine. shortness of breath, Client presents with at least one sign or symptom that may indicate coronavirus-19. Standard/surgical mask placed on the client. Provider contacted for isolation considerations. Ebola Screen: No symptoms or risks identified at this time. Initial Sepsis Screen: Does the patient meet any 2 criteria? No. Patient's initial sepsis screen is negative. Does the patient have a suspected source of infection? No. Patient's initial sepsis screen is negative. Risk Assessment: Do you want to hurt yourself or someone else? Patient reports no desire to harm self or others. Onset of symptoms was September 07, 2021. 09:35 Method Of Arrival: Ambulatory jl7 09:35 Acuity: GABBY 2 jl7 Triage Assessment: 09:36 General: Appears in no apparent distress. uncomfortable, Behavior is cooperative. Pain: jl7 Complains of pain in chest Pain currently is 10 out of 10 on a pain scale. Respiratory: Reports shortness of breath at rest Onset: The symptoms/episode began/occurred x 3 days, the patient has mild shortness of breath. Historical: - Allergies: 09:36 Allergic to unknown medicine and unknown reaction; jl7 - PMHx: 09:36 Diabetes - IDDM; Hyperlipidemia; Hypertension; jl7 - PSHx: 10:30 Pace maker; jg9 - Immunization history:: Client reports receiving the 2nd dose of the Covid vaccine. - Social history:: Smoking status: Patient denies any tobacco usage or history of. - Family history:: not pertinent. Screenin:29 Abuse screen: Denies threats or abuse. Denies injuries from another. Nutritional jg9 screening: No deficits noted. Tuberculosis screening: No symptoms or risk factors identified. Fall Risk None identified. Assessment: 10:15 General: Appears in no apparent distress. Behavior is calm. Pain: Complains of pain in jg9 chest Pain does not radiate. Pain currently is 10 out of 10 on a pain scale. Neuro: Reports headache in entire. Cardiovascular: Rhythm is Respiratory: Airway is patent Respiratory effort is even, Breath sounds are clear bilaterally. 11:24 Reassessment: Patient is alert, oriented x 3, equal unlabored respirations, skin jg9 warm/dry/pink. Patient states feeling better. Patient states symptoms have improved. Vital Signs: 09:35 BP 180 / 122; Pulse 98; Resp 22; Temp 97.9; Pulse Ox 97% ; Weight 138.35 kg; Height 6 jl7 ft. 2 in. (187.96 cm); Pain 10/10; 09:48 BP 157 / 119; Pulse 97; Resp 24 S; Pulse Ox 100% ; jg9 10:00 BP 162 / 116; Pulse 93; Resp 21 S; Pulse Ox 100% on R/A; jg9 10:21 BP 170 / 113; Pulse 92; Resp 21 S; Pulse Ox 100% on R/A; jg9 11:15 BP 185 / 115; Pulse 83; Resp 20 S; Pulse Ox 99% on R/A; jg9 11:30 BP 165 / 119; Pulse 80; Resp 21 S; Pulse Ox 98% on R/A; jg9 12:00 BP 162 / 60; Pulse 57; Resp 14 S; Pulse Ox 100% on R/A; jg9 15:00 BP 145 / 94; Pulse 82; Resp 20 S; Pulse Ox 18% on R/A; jg9 09:35 Body Mass Index 39.16 (138.35 kg, 187.96 cm) jl7 ED Course: 09:26 Patient arrived in ED. ds1 09:36 Triage completed. jl7 09:36 Arm band placed on right wrist. jl7 09:39 Yared Rivera MD is Attending Physician. ma2 09:44 Iman Bess, SAMUEL is Primary Nurse. jg9 10:10 Inserted saline lock: 20 gauge in right antecubital area, using aseptic technique. jg9 Blood collected. 10:30 Patient has correct armband on for positive identification. Bed in low position. Call jg9 light in reach. Side rails up X 1. 10:42 XRAY Chest (1 view) In Process Unspecified. EDMS 11:28 No apparent distress. Resting quietly. jg9 11:49 Yared Larios MD is Hospitalizing Provider. ma2 15:03 No provider procedures requiring assistance completed. jg9 15:03 Patient admitted, IV remains in place. jg9 Administered Medications: 10:20 Drug: Lasix (furosemide) 20 mg Route: IVP; Site: right antecubital; jg9 10:46 Follow up: Response: No adverse reaction jg9 10:20 Drug: Aspirin Chewable Tablet 324 mg Route: PO; jg9 10:46 Follow up: Response: No adverse reaction jg9 10:23 Drug: Zofran (Ondansetron) 4 mg Route: IVP; Site: right antecubital; jg9 10:45 Follow up: Response: No adverse reaction jg9 10:25 Drug: morphine 4 mg {Note: RASS-0.} Route: IVP; Site: right antecubital; jg9 10:45 Follow up: Response: No adverse reaction; Marked relief of symptoms; Pain is decreased jg9 10:46 Follow up: Response: RASS: Alert and Calm (0) jg9 11:44 Drug: Labetalol 10 mg Route: IVP; Site: right antecubital; jg9 12:13 Follow up: Response: Blood pressure is lowered j9 12:06 Drug: Lasix (furosemide) 20 mg Route: IVP; Site: right antecubital; jg9 12:06 Drug: Nitro-Bid (nitroglycerin) Ointment 2 % 1 inches Route: Transdermal; Site: j9 anterior chest wall; Outcome: 11:49 Decision to Hospitalize by Provider. ma2 15:03 Admitted to ER Hold. Please see [facility] for further documentation. jg9 15:03 Condition: stable 15:27 Patient left the ED. jg9 Signatures: Dispatcher [employer] [facility] Suly Bassett Jahala RN RN jl7 Yared Rivera MD MD ma2 Iman Bess RN RN jg9 Corrections: (The following items were deleted from the chart) 09:38 09:36 Allergies: No Known Allergies; vaughn jlPrem 10:25 10:25 morphine 4 mg IVP in right antecubital jg9 jg9 15:54 12:00 BP 122 / 60; Pulse 57bpm; Resp 14bpm; Spontaneous; Pulse Ox 100% RA; jg9 jg9
--- NOTE | 2021-09-10 11:50 | EDPHYS ---
Physician Documentation [facility] Name: Bryan Watts Age: 55 yrs Sex: Male : 1965 Arrival Date: 09/10/2021 Time: 09:26 Bed 14 Private MD: ED Physician Yared Rivera HPI: 09/10 10:32 This 55 yrs old Black Male presents to ER via Ambulatory with complaints of Shortness ma2 Of Breath. 10:32 The patient has shortness of breath at rest. Associated signs and symptoms: Pertinent ma2 negatives: productive cough, dizziness, hemoptysis, nausea, numbness in extremities. Severity of symptoms: At their worst the symptoms were mild. 55-year-old male, history of CHF, on Lasix, here with chest pain shortness of breath, chest pain is exertional when he took 10 steps. At this time patient also states he has lower extremity edema.. Historical: - Allergies: 09:36 Allergic to unknown medicine and unknown reaction; jl7 - PMHx: 09:36 Diabetes - IDDM; Hyperlipidemia; Hypertension; jl7 - PSHx: 10:30 Pace maker; jg9 - Immunization history:: Client reports receiving the 2nd dose of the Covid vaccine. - Social history:: Smoking status: Patient denies any tobacco usage or history of. - Family history:: not pertinent. ROS: 10:32 Constitutional: Negative for fever, chills, and weight loss. ma2 10:32 All other systems are negative. Exam: 10:32 Constitutional: This is a well developed, well nourished patient who is awake, alert, ma2 and in no acute distress. ENT: Nares patent. No nasal discharge, no septal abnormalities noted. Tympanic membranes are normal and external auditory canals are clear. Oropharynx with no redness, swelling, or masses, exudates, or evidence of obstruction, uvula midline. Mucous membranes moist. Neck: Trachea midline, no thyromegaly or masses palpated, and no cervical lymphadenopathy. Supple, full range of motion without nuchal rigidity, or vertebral point tenderness. No Meningismus. Chest/axilla: Normal chest wall appearance and motion. Nontender with no deformity. No lesions are appreciated. Cardiovascular: Regular rate and rhythm with a normal S1 and S2. No gallops, murmurs, or rubs. Normal PMI, no JVD. No pulse deficits. Respiratory: Lungs have equal breath sounds bilaterally, clear to auscultation and percussion. No rales, rhonchi or wheezes noted. No increased work of breathing, no retractions or nasal flaring. Abdomen/GI: Soft, non-tender, with normal bowel sounds. No distension or tympany. No guarding or rebound. No evidence of tenderness throughout. Back: No spinal tenderness. No costovertebral tenderness. Full range of motion. Skin: Warm, dry with normal turgor. Normal color with no rashes, no lesions, and no evidence of cellulitis. MS/ Extremity: Patient has bilateral lower extremity edema pitting, 2+ equal bilaterally, no signs of DVT. Otherwise pulses equal, no cyanosis. Neurovascular intact. Full, normal range of motion. Vital Signs: 09:35 BP 180 / 122; Pulse 98; Resp 22; Temp 97.9; Pulse Ox 97% ; Weight 138.35 kg; Height 6 7 ft. 2 in. (187.96 cm); Pain 10/10; 09:48 BP 157 / 119; Pulse 97; Resp 24 S; Pulse Ox 100% ; jg9 10:00 BP 162 / 116; Pulse 93; Resp 21 S; Pulse Ox 100% on R/A; jg9 10:21 BP 170 / 113; Pulse 92; Resp 21 S; Pulse Ox 100% on R/A; jg9 11:15 BP 185 / 115; Pulse 83; Resp 20 S; Pulse Ox 99% on R/A; jg9 11:30 BP 165 / 119; Pulse 80; Resp 21 S; Pulse Ox 98% on R/A; jg9 12:00 BP 162 / 60; Pulse 57; Resp 14 S; Pulse Ox 100% on R/A; jg9 15:00 BP 145 / 94; Pulse 82; Resp 20 S; Pulse Ox 18% on R/A; jg9 09:35 Body Mass Index 39.16 (138.35 kg, 187.96 cm) 7 MDM: 09:41 Patient medically screened. ma2 10:32 Differential diagnosis: Anemia CHF exacerbation, pneumonia, pulmonary edema, Unstable ma2 Angina. 11:48 Data reviewed: vital signs, nurses notes, EMS record. Counseling: I had a detailed ma2 discussion with the patient and/or guardian regarding: the historical points, exam findings, and any diagnostic results supporting the discharge/admit diagnosis, the presence of at least one elevated blood pressure reading (>120/80) during this emergency department visit, the need for outpatient follow up. 09/10 09:40 Order name: Basic Metabolic Panel [facility] 09/10 09:40 Order name: CBC with Diff; Complete Time: 11:42 [facility] 09/10 09:40 Order name: LFT's [facility] 09/10 09:40 Order name: Magnesium [facility] 09/10 09:40 Order name: NT PRO-BNP [facility] 09/10 09:40 Order name: PT-INR; Complete Time: 11:42 [facility] 09/10 09:40 Order name: Troponin HS [facility] 09/10 09:40 Order name: SARS-COV-2 RT PCR (Document "Date of Onset" if Symptomatic); Complete Time: tn2 11:42 09/10 12:50 Order name: Lipid Profile [facility] 09/10 12:50 Order name: Lipid Profile [facility] 09/10 13:14 Order name: Troponin High Sensitivity [facility] 09/10 13:14 Order name: CBC with Automated Diff [facility] 09/10 13:14 Order name: Comprehensive Metabolic Panel [facility] 09/10 13:14 Order name: Magnesium [facility] 09/10 09:40 Order name: XRAY Chest (1 view); Complete Time: 11:42 [facility] 09/10 09:40 Order name: EKG; Complete Time: 09:41 [facility] 09/10 12:50 Order name: CONS Physician Consult [facility] 09/10 12:50 Order name: Heart Healthy [facility] 09/10 12:50 Order name: Echo with Doppler [facility] 09/10 13:14 Order name: NT PRO-BNP [facility] 09/10 13:14 Order name: Troponin High Sensitivity [facility] 09/10 13:17 Order name: T4 Free [facility] 09/10 13:17 Order name: Thyroid Stimulating Hormone [facility] 09/10 09:40 Order name: Cardiac monitoring; Complete Time: 10:11 [facility] 09/10 09:40 Order name: EKG - Nurse/Tech; Complete Time: 10:11 [facility] 09/10 09:40 Order name: IV Saline Lock; Complete Time: 10:11 [facility] 09/10 09:40 Order name: Labs collected and sent; Complete Time: 10:11 [facility] 09/10 09:40 Order name: O2 Sat Monitoring; Complete Time: 10: [facility] 09/10 12:50 Order name: EKG Electrocardiogram EDMS Administered Medications: 10:20 Drug: Lasix (furosemide) 20 mg Route: IVP; Site: right antecubital; jg9 10:46 Follow up: Response: No adverse reaction j9 10:20 Drug: Aspirin Chewable Tablet 324 mg Route: PO; jg9 10:46 Follow up: Response: No adverse reaction j9 10:23 Drug: Zofran (Ondansetron) 4 mg Route: IVP; Site: right antecubital; jg9 10:45 Follow up: Response: No adverse reaction j9 10:25 Drug: morphine 4 mg {Note: RASS-0.} Route: IVP; Site: right antecubital; jg9 10:45 Follow up: Response: No adverse reaction; Marked relief of symptoms; Pain is decreased j9 10:46 Follow up: Response: RASS: Alert and Calm (0) j9 11:44 Drug: Labetalol 10 mg Route: IVP; Site: right antecubital; jg9 12:13 Follow up: Response: Blood pressure is lowered j9 12:06 Drug: Lasix (furosemide) 20 mg Route: IVP; Site: right antecubital; jg9 12:06 Drug: Nitro-Bid (nitroglycerin) Ointment 2 % 1 inches Route: Transdermal; Site: jg9 anterior chest wall; Disposition Summary: 09/10/21 11:49 Hospitalization Ordered Hospitalization Status: Observation ma2 Provider: Yared Larios ma Location: Telemetry/MedSurg (Inpatient) ma2 Condition: Stable ma2 Problem: new ma2 Symptoms: are unchanged ma2 Bed/Room Type: Standard [facility] Room Assignment: 207(09/10/21 14:30) bd Diagnosis - Chest pain, unspecified ma2 - Acute on chronic diastolic (congestive) heart failure ma2 Forms: - Medication Reconciliation Form ma2 - SBAR form ma2 Signatures: Dispatcher [employer] EDMS Lisandra Coy Jahala, RN RN jl7 Yared Rivera MD MD ma2 Iman Bess RN RN jg9 Corrections: (The following items were deleted from the chart) 09:38 09:36 Allergies: No Known Allergies; jl7 jl7 14:30 11:49 ruben dolan
[2021-09-10] MEDS ORDERED: NITROGLYCERIN 1 GM PKT TD ONE (12:06)
[2021-09-10] MEDS ORDERED: ACETAMINOPHEN 500 MG TAB PO PRN (12:46)
[2021-09-10] MEDS ORDERED: INFLUENZA VACCINE (for 6+ mo) 0.5 ML DOSE IMVAC ONE (14:00)
[2021-09-10 14:02] VITALS: BMI 39.1
[2021-09-10] MEDS ORDERED: MORPHINE 2 MG/ML SYR ONE (14:19)
[2021-09-10 16:08] VITALS: O2SAT 100
[2021-09-10] MEDS: FUROSEMIDE 40 MG/4 ML VIAL IV SCH (17:14)
[2021-09-10] MEDS: MORPHINE 2 MG/ML SYR IV PRN ×2 (17:14→20:47)
[2021-09-10 19:22] LABS: Magnesium 1.7
[2021-09-10] MEDS: METOPROLOL TAR 25 MG TAB PO SCH (20:19)
[2021-09-10] MEDS ORDERED: ATORVASTATIN 10 MG TAB PO SCH (21:00)
[2021-09-11] MEDS: MORPHINE 2 MG/ML SYR IV PRN ×2 (02:00→08:43)
[2021-09-11 07:00] LABS: Absolute Lymphocytes (CBC) 2.2 K/uL (0.7-4.9); Hematocrit 40.4 % (39.6-49.0); Lymphocytes % 47.4 % (15.3-44.8); MPV 8.9 fL (7.6-11.3); RBC Red Blood Cell Count 5.06 M/uL (4.33-5.43)
[2021-09-11 07:29] LABS: Bilirubin Total 0.4 mg/dL (0.2-1.0); Potassium 3.7 mmol/L (3.5-5.1); Protein, Total 7.1 g/dL (6.4-8.2); Thyroid Stimulating Hormone 1.28 uIU/mL (0.360-3.740); Troponin High Sensitivity 27.7 pg/mL (<58.9)
[2021-09-11] MEDS: FUROSEMIDE 40 MG/4 ML VIAL IV SCH (08:26)
[2021-09-11] MEDS: METOPROLOL TAR 25 MG TAB PO SCH (08:43)
[2021-09-11] MEDS ORDERED: lisinopriL 10 MG TAB PO SCH (09:00)
[2021-09-11] MEDS ORDERED: SPIRONOLACTONE 25 MG TABLET PO SCH (09:00)
[2021-09-11] MEDS ORDERED: ENOXAPARIN 40 MG/0.4 ML SQ SCH (09:00)
[2021-09-11] MEDS ORDERED: ASPIRIN EC 81 MG TAB PO SCH ×2 (09:00)
[2021-09-11 12:25] VITALS: BP 138/94; TEMP 98.1
--- NOTE | 2021-09-11 12:50 | EKG ---
Test Date: 2021-09-10 Test Time: 09:51:29 Journal Box Inspector: JOSESITO MEASUREMENT RESULTS: Intervals: Rate: 97 CO: 146 QRSD: 192 QT: 456 QTc: 579 [place]: P: 79 CO: 146 QRS: -45 T: 81 INTERPRETIVE STATEMENTS: Electronic ventricular pacemaker Compared to ECG 07/12/2021 12:28:19 No significant changes Electronically Signed On 09-11-21 12:46:52 CHEMICAL PRODUCTION MACHINE OPERATOR by Silviano Grimes
--- NOTE | 2021-09-11 12:50 | EKG ---
Test Date: 2021-09-10 Test Time: 09:52:21 Criminal Psychologist: JOSESITO MEASUREMENT RESULTS: Intervals: Rate: 97 IA: 144 QRSD: 192 QT: 462 QTc: 586 [place]: P: 78 IA: 144 QRS: -39 T: 79 INTERPRETIVE STATEMENTS: Electronic ventricular pacemaker Compared to ECG 09/10/2021 09:51:29 No significant changes Electronically Signed On 09-11-21 12:46:49 FACTORY MAINTENANCE TECHNICIAN by Silviano Grimes
[2021-09-11 14:11] LABS: Magnesium 1.7
--- NOTE | 2021-09-16 13:52 | CON ---
Date of Consultation: 09/11/2021 Reason For Consultation: Atypical chest pain, shortness of breath, and headaches. History Of Present Illness: Mr. Watts is a 55-year-old black male, who came in mostly complaining o f shortness of breath. Has not had any cough or fever or chills. He apparently has a history of erica stolic congestive heart failure. Has had some chest pain that is nonexertional at times and occasion ally with exertion. He does have a history of pacemaker, diabetes, hypertension, and dyslipidemia. Denied PND, orthopnea, pedal edema, palpitation, or syncope. Allergies: UNAVAILABLE. Review of Systems: Negative. Social History: Negative. Family History: Negative. Medications: At home include aspirin, Lipitor, Lasix, metformin, metoprolol, spironolactone, and lis inopril. Physical Examination: Vital Signs: Stable. He was afebrile. He weighed 305 pounds. He was in sinus rhythm. HEENT: Negative. Neck: Supple with no bruit. Chest: Reveals some rales at both bases. Cardiac: Revealed a regular rhythm and rate with an S4 gallops. No murmurs or rubs. Abdomen: Obese, but benign. Extremities: Revealed 1+ edema. Skin: Dry and intact. Pulses were present distally bilaterally. Neurological: He was nonfocal. Diagnostic Data: Creatinine was 1.46. Hemoglobin was normal. GFR was 66. BUN was normal. BNP was 3473. He was COVID negative. Chest x-ray consistent with congestive heart failure. EKG showed a p aced rhythm. Echocardiogram in July of 2021 showed an ejection fraction of 32%. He had a negati ve stress test then. He had a negative heart catheterization in 2019. Impression And Plan: Atypical chest pain, shortness of breath secondary to congestive heart failure that is [id number] systolic congestive heart failure. We need to diurese him. Continue his pr esent regimen, which is adequate. He should definitely be on aspirin, Lasix, metoprolol, spironolact one, lisinopril which he has taken. Once he gets diuresed, he can go home. We will see him in the o ice as an outpatient. No need for any further cardiac workup at this point. His blood pressure an d diabetes and dyslipidemia are well controlled. NB/MODL Voice ID: [id number] Report ID: [id number]
--- NOTE | 2021-09-25 07:38 | P.HP ---
Certification for Inpatient Patient admitted to: Observation With expected LOS: <2 Midnights Patient will require the following post-hospital care: None Practitioner: I am a practitioner with admitting privileges, knowledge of patient current condition, hospital course, and medical plan of care. Services: Services provided to patient in accordance with Admission requirements found in Title 42 Section 412.3 of the Code of Federal Regulations Patient History Date of Service: 09/10/21 Reason for admission: CHF exacerbation History of Present Illness: Patient is a 55-year-old gentleman who came to the hospital with elevated blood pressure. Patient also has shortness of breath. Patient has a history of CHF. Patient was started on cardiac meds. Patient was started on diuretics. Patient also with a history of chronic kidney disease. We started patient on patient's cardiac meds and we are continuing with diuresing. Cardiology consultation was obtained. Allergies No Known Allergies Allergy (Unverified 09/10/21 14:13) Home Medications: Metformin HCl [Glucophage*] 500 mg PO DAILY 10/18/15 Aspirin [Aspirin EC 81 MG] 81 mg PO DAILY #90 tablet. 07/10/21 Atorvastatin Calcium [Lipitor*] 10 mg PO BEDTIME #30 tab 07/10/21 Metoprolol Tartrate [Lopressor*] 50 mg PO BID #60 tab 07/10/21 Furosemide [Lasix*] 40 mg PO BIDL #60 tab 09/11/21 Hydrocodone/Acetaminophen [Hydrocodon-Acetaminophn 10-325] 1 each PO Q12HP PRN #30 tablet 09/11/21 Spironolactone [Aldactone*] 25 mg PO BID #60 tab 09/11/21 lisinopriL [Prinivil*] 20 mg PO BID #60 tab 09/11/21 - Past Medical/Surgical History Has patient received pneumonia vaccine in the past: No Diabetic: Yes -: Diabetes type 2 -: HTN -: CAD -: Chronic systilic congestive heart failure -: Chronic systolic congestive heart failure -: RIGHT KNEE SX -: ARTIFICIAL LEFT EYE- 1978 -: Cardiac catherization with stent -: pacemaker Psychosocial/ Personal History: patient lives at home with family - Family History Father Medical History: Heart disease, Hypertension Mother Medical History: Diabetes - Social History Smoking Status: Never smoker Place of Residence: Home Review of Systems 10-point ROS is otherwise unremarkable Physical Examination - Vital Signs Temperature: 98.1 F Blood Pressure: 138/94 Pulse: 68 Respirations: 20 Pulse Ox (%): 98 - Physical Exam General: Alert, In no apparent distress, Oriented x3 HEENT: Atraumatic, PERRLA, Mucous membr. moist/pink, EOMI, Sclerae nonicteric Neck: Supple, 2+ carotid pulse no bruit, No LAD, Without JVD or thyroid abnormality Respiratory: Diminished, Crackles/rales Cardiovascular: Regular rate/rhythm, Normal S1 S2, Systolic murmur Gastrointestinal: Normal bowel sounds, Soft and benign, Non-distended, No tenderness Musculoskeletal: No tenderness Integumentary: No rashes Neurological: Normal gait, Normal speech, Normal strength at 5/5 x4 extr, Normal tone, Normal affect Lymphatics: No axilla or inguinal lymphadenopathy Assessment & Plan - Problems (Diagnosis) (1) CHF (congestive heart failure) Status: Acute Qualifiers: Heart failure type: diastolic Heart failure chronicity: acute Qualified Code(s): I50.31 - Acute diastolic (congestive) heart failure (2) CAD (coronary artery disease) Onset Date: 12/29/17 Status: Chronic Qualifiers: (3) DM2 (diabetes mellitus, type 2) Onset Date: 01/28/17 Status: Chronic (4) HTN (hypertension) Onset Date: 01/28/17 Status: Chronic Qualifiers: (5) Hyperlipidemia Onset Date: 11/26/15 Status: Chronic Qualifiers: (6) Kidney disease Onset Date: 02/19/18 Status: Chronic - Plan PLAN: 1. Echocardiogram 2. We will start patient on an LANA inhibitor or an ARB 3. We will start patient on a Beta brii 4. Cardiology consultation 5. Aggressive diuresis 6. Strict I's and O's 7. Repeat CXR 8. Daily weights 9. Education regarding diet and treatment of congestive heart failure Discharge Plan: Home Plan to discharge in: Greater than 2 days - Advance Directives Does patient have a Living Will: No Does patient have a Durable POA for Healthcare: No - Code Status/Comfort Care Code Status: Full Code Critical Care: No Time Spent Managing PTS Care (In Minutes): 45
--- NOTE | 2021-09-25 07:41 | P.DS ---
Discharge Date: 09/11/21 Disposition: ROUTINE DISCHARGE Discharge Condition: GOOD Reason for Admission: CHF exacerbation - Problems (1) CHF (congestive heart failure) Status: Acute Qualifiers: Heart failure type: diastolic Heart failure chronicity: acute Qualified Code(s): I50.31 - Acute diastolic (congestive) heart failure (2) CAD (coronary artery disease) Onset Date: 12/29/17 Status: Chronic Qualifiers: (3) DM2 (diabetes mellitus, type 2) Onset Date: 01/28/17 Status: Chronic (4) HTN (hypertension) Onset Date: 01/28/17 Status: Chronic Qualifiers: (5) Hyperlipidemia Onset Date: 11/26/15 Status: Chronic Qualifiers: (6) Kidney disease Onset Date: 02/19/18 Status: Chronic Brief History of Present Illness: Patient is a 55-year-old gentleman who came to the hospital with elevated blood pressure. Patient also has shortness of breath. Patient has a history of CHF. Patient was started on cardiac meds. Patient was started on diuretics. Patient also with a history of chronic kidney disease. We started patient on patient's cardiac meds and we are continuing with diuresing. Cardiology consultation was obtained. Hospital Course: Patient is clinically doing well. Patient was diuresed and patient's blood pressure is stable. Patient respiratory status is stable. Patient will need close cardiology follow-up. At this time, patient is stable for discharge home. Vital Signs/Physical Exam: Temp Pulse Resp BP Pulse Ox 98.1 F 68 20 138/94 H 98 09/25/21 07:38 09/25/21 07:38 09/25/21 07:38 09/25/21 07:38 09/25/21 07:38 General: Alert, In no apparent distress, Oriented x3 Laboratory Data at Discharge: WBC 4.60 K/uL (4.3-10.9) 09/11/21 06:22 Hgb 12.8 g/dL (13.6-17.9) L 09/11/21 06:22 Hct 40.4 % (39.6-49.0) 09/11/21 06:22 Plt Count 189 K/uL (152-406) 09/11/21 06:22 PT 11.1 SECONDS (9.5-12.5) 09/10/21 09:50 INR 0.97 09/10/21 09:50 Sodium 143 mmol/L (136-145) 09/11/21 06:22 Potassium 3.7 mmol/L (3.5-5.1) 09/11/21 06:22 BUN 26 mg/dL (7-18) H 09/11/21 06:22 Creatinine 1.37 mg/dL (0.55-1.3) H 09/11/21 06:22 Glucose 97 mg/dL (74-106) 09/11/21 06:22 Magnesium 1.7 09/11/21 06:22 Total Bilirubin 0.4 mg/dL (0.2-1.0) 09/11/21 06:22 AST 20 U/L (15-37) 09/11/21 06:22 ALT 21 U/L (12-78) 09/11/21 06:22 Alkaline Phosphatase 49 U/L (45-117) 09/11/21 06:22 Triglycerides 75 mg/dL (<150) 09/11/21 06:22 Cholesterol 176 mg/dL (<200) 09/11/21 06:22 HDL Cholesterol 46 mg/dL (40-60) 09/11/21 06:22 Cholesterol/HDL Ratio 3.83 09/11/21 06:22 Home Medications: Metformin HCl [Glucophage*] 500 mg PO DAILY 10/18/15 Aspirin [Aspirin EC 81 MG] 81 mg PO DAILY #90 tablet. 07/10/21 Atorvastatin Calcium [Lipitor*] 10 mg PO BEDTIME #30 tab 07/10/21 Metoprolol Tartrate [Lopressor*] 50 mg PO BID #60 tab 07/10/21 Furosemide [Lasix*] 40 mg PO BIDL #60 tab 09/11/21 Hydrocodone/Acetaminophen [Hydrocodon-Acetaminophn 10-325] 1 each PO Q12HP PRN #30 tablet 09/11/21 Spironolactone [Aldactone*] 25 mg PO BID #60 tab 09/11/21 lisinopriL [Prinivil*] 20 mg PO BID #60 tab 09/11/21 New Medications: Spironolactone [Aldactone*] 25 mg PO BID #60 tab Hydrocodone/Acetaminophen [Hydrocodon-Acetaminophn 10-325] 1 each PO Q12HP PRN #30 tablet PRN Reason: pain/fever Furosemide [Lasix*] 40 mg PO BIDL #60 tab lisinopriL [Prinivil*] 20 mg PO BID #60 tab Physician Discharge Instructions: -DC IV and DC home -Follow-up with PCP in 1 to 2 weeks -Follow-up with Cardiology in 1 to 2 weeks -Please call Dr. Larios at [phone] if any questions regarding hospital stay -Please call nursing station at [phone] if any nursing or medication questions -Return to the emergency room if symptoms worsen Diet: AHA Activity: Fall precautions Followup: OOT,OOT [Primary Care Provider] - Time spent managing pt's care (in minutes): 35
== END 2021-09-11 12:51 | disposition home or self-care (01) ==
LOC: ER 09:24 → ERHOLD 12:47 → 2ND 15:07
PROVIDERS: ADMIT Hospitalist; ATTEND Hospitalist
DX: I13.0 Hypertensive heart and chronic kidney disease with heart failure and stage 1 through stage 4 chronic kidney disease, or unspecified chronic kidney disease (principal); I50.23 Acute on chronic systolic (congestive) heart failure; N18.9 Chronic kidney disease, unspecified; E11.22 Type 2 diabetes mellitus with diabetic chronic kidney disease; Z95.0 Presence of cardiac pacemaker; I25.10 Atherosclerotic heart disease of native coronary artery without angina pectoris; E78.5 Hyperlipidemia, unspecified; Z20.822 Contact with and (suspected) exposure to COVID-19
CPT/HCPCS: 36415; 71045; 80048; 80053; 80061; 80076; 83735; 83880; 84439; 84443; 84484; 85025; 85610; 93005; 96374; 96375; 99285; G0378; J1650; J1940; J2270; J2405; U0003

== ENCOUNTER 2021-09-16 18:28 | Emergency (ER) | payer OTHER ==
--- OUTSIDE RECORDS SUMMARY | 2021-09-16 18:38 | XMS REPORT | Continuity of Care Document ---
:1965 Author Organization [facility] t Address [address] [place] [address] Care Team Providers Name Role Phone Robert BOYER, A Primary Care Physician Orlin JONES Attending Clinician Unavailable TAMEKA LESTER Attending Clinician Unavailable Davide REYNAGA Attending Clinician Unavailable Davide Reynaga DO Attending Clinician MJ Attending Clinician Unavailable MJ Attending Clinician Unavailable Jacky BOYER, Darian Attending Clinician JANNY JORDAN Attending Clinician Unavailable Janny Cuellar Attending Clinician Tess Hernandez MD Attending Clinician [phone] Mikayla BAKER Attending Clinician Unavailable Orlin Jones MD Attending Clinician Rolo BAKER, B Attending Clinician Unavailable Ruben BOYER Attending Clinician Faby CORTEZ Attending Clinician Kalen Soto MD Attending Clinician Eddie BOYER Attending Clinician JORDIN Attending Clinician Unavailable BRYON VASQUES Attending Clinician Unavailable ERICKA Attending Clinician Unavailable Wandy STOKES Attending Clinician Unavailable AUTUMN Attending Clinician Unavailable Attending Clinician Unavailable Tess HERNANDEZ Attending Clinician Unavailable OTNY, R Attending Clinician Unavailable MULUGETA Attending Clinician Unavailable Orlin HEATH Attending Clinician Unavailable Orlin Jaun Attending Clinician Unavailable Nav Bee MD Attending Clinician Rosalia BOYER S Attending Clinician Artemio ALARCON, L Attending Clinician Kathia Attending Clinician Unavailable Nasim Attending Clinician Unavailable WILBERTO, K.HTej Attending Clinician Unavailable Edgar MANCUSO Attending Clinician Unavailable Edgar MANCUSO Attending Clinician Unavailable Tyler Attending Clinician Unavailable AMADO Attending Clinician Unavailable ARVIND Attending Clinician Unavailable ELENI Attending Clinician Unavailable Elisha Attending Clinician Unavailable ALAINA Attending Clinician Unavailable NAV BEE Attending Clinician Unavailable NAV BEE Attending Clinician Unavailable CARRI PARKS Attending Clinician Unavailable Physician, Primary or Family Admitting Clinician UnavailDavide Kirkland Admitting Clinician Unavailable Kalen Soto MD Admitting Clinician JORDIN Admitting Clinician Unavailable ERICKA Admitting Clinician Unavailable AUTUMN Admitting Clinician Unavailable JIMENEZ, R Admitting Clinician Unavailable MULUGETA Admitting Clinician Unavailable Tess HERNANDEZ Admitting Clinician Unavailable Yessica, Orlin Admitting Clinician Unavailable Santana BOYER Admitting Clinician Kathia Admitting Clinician Unavailable Tyler Admitting Clinician Unavailable Elisha Admitting Clinician Unavailable CARRI PARKS Admitting Clinician Unavailable Payers Payer Name Policy Type Policy Number Effective Date Expiration Date Kathie mckinley MEDICARE PART A \\T\\ [id number] 1986 B 00:00:00 [facility] [id number] 2021 MEDICAID 00:00:00 Problems Condition Condition Condition Status Onset Resolution Last Treating Co mments Source Name Details Category Date Date Treatment Clinician Date Acute on Acute on Disease Active Unive rs chronic chronic 1-20 ity of heart heart 00:00: [place] failure, failure, 00 Medica l unspecifie unspecifie Br anch d heart d heart failure failure type type SOB SOB Disease Active Univers (shortness (shortness 1-12 it y of of breath[place] breath[place] Congestive Congestive Disease Active U nivers heart heart 1-11 ity of failure, failure, 00:00: [place] unspecifie unspecifie 00 Me dical d HF d HF Branch chronicity chronicity , , unspecifie unspecifie d heart d heart failure failure type type COVID-19 COVID-19 Disease Active 2020-08 Unive rs virus virus 2-20 [place] Hypertensi Hypertensi Disease Active 2020-08 U nivers ve ve 2-20 [place] of emergency emergency 00[place] Troponin I Troponin I Disease Active 2020-08 U nivers above above 2-20 [place] reference [place] range range 00 [place] CHF with CHF with Disease Active 2020-08 Unive rs unknown unknown 1-29 ity of LVEF LVEF 00:00: [place] 00 Medical Branch Obesity Obesity Disease Active 2020-08 Univers (BMI (BMI 0-16 ity of 30-39.9) 30-39.9) 00:00: [place] 00 Medical Branch Acute on Acute on Disease Active 2020-08 Unive rs chronic chronic 0-03 ity of combined combined 00:00: [place] systolic systolic 00 Medica l and and [...] 5-17 ity of embolic embolic 00:00: [place] [facility] Noncomplia Noncomplia Disease Active U nivers nce nce 5-11 ity of 00:00: [place] 00 Medical Branch Acute CVA Acute CVA Disease Active Uni vers (cerebrova (cerebrova 3-24 it y of scular scular 00:00: [place] accident) accident) 00 [facility] Branch Dyslipidem Dyslipidem Disease Active U nivers ia ia 3-11 ity of 00:00: [place] 00 Medical Branch Chronic Chronic Disease Active Univers left-sided left-sided 2-12 it y of low back low back 00:00: [place] pain with pain with 00 [facility] sciatica, sciatica, Bran ch sciatica sciatica laterality laterality unspecifie unspecifie d d Cardiac Cardiac Disease Active Univers resynchron resynchron 1-13 it y of ization ization 00:00: [place] therapy therapy 00 Medical defibrilla 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 Br anch tor 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) in place place Heart Heart Disease Active [...] Added automatic ally from request for surgery [id number] Atypical Atypical Disease Active 2015-08 Unive rs [...] failure failure Branch Essential Essential Disease Active 2015-1 Uni vers hypertensi hypertensi 0-01 it y of on on 00:00: [place] 00 Medical Branch 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 0- ity of mellitus mellitus 00:00: [place] with with 00 Medical complicati complicati Br anch on, on, without without long-term long-term current current use of use of insulin insulin Loss of Loss of Disease Active 2014-08 Univers one eye one eye 0- ity of 00:00: [place] [facility] CVA, old, CVA, old, 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 0- it y of s s 00:00: [place] [facility] Chronic Chronic Disease Active 2014-08 Univers dental dental 0- ity of pain pain 00:00: [place] [facility] Allergies, Adverse Reactions, Alerts Allergy Allergy Status Severity Reaction(s) Onset Inactive Treating Comm ents Source Name Type Date Date Clinician No Known DA Active [facility] Allergie 4-30 Clear s 00:00: [place] 00 [facility] No Known DA Active U [facility] Allergie 4-30 Clear s 00:00: [place] 00 [facility] No Known DA Active U [facility] Allergie 4-29 [place] 00:00: d 00 [facility] ISOSORBI DRUG Active Other-Cmnt Univ ers DE INGREDI 04-04 ity of MONONITR 00:00: [place] ATE 00 Medical Branch Isosorbi Propensi Active Other - See Severe U nivers de ty to comments 04-04 hypotensi ity o f Mononitr adverse 00:00: on, [place] ate reaction 00 likely Medical s from Branch severe LVH per Dr. Zamora. No Known DA Active U [facility] Allergie 4-10 [place] s 00:00: [address] Social History Social Habit Start Date Stop Date Quantity Comments Source Exposure to Not sure [place] of SARS-CoV-2 [place] Medical (event) Branch History SDOH University o f Alcohol Frequency [place] M edical Branch History SDOH University o f Alcohol Std [place] Medical Drinks Branch History SDOH University o f Alcohol Binge [place] [facility] Alcohol intake 2021-09-16 2021-09-16 Ex-drinker University of 00:00:00 00:00:00 (finding) [place] [facility] Alcohol Comment 2021-05-22 2021-05-22 1 cup of whiskey Uni versity of 00:00:00 00:00:00 but last dirnk [place] Medi jennifer in December Branch Education 2020-04-30 2020-04-30 13 University of 00:00:00 00:00:00 [facility] Branch History [facility] 2019-08-22 2019-08-22 3 University o f Financial 00:00:00 00:00:00 [place] [facility] History [facility] Food 2019-08-22 2019-08-22 1 Univers ity of Worry 00:00:00 00:00:00 [place] [facility] History [facility] Food 2019-08-22 2019-08-22 1 Univers ity of Scarcity 00:00:00 00:00:00 [place] [facility] History [facility] 2019-08-22 2019-08-22 2 University o f Transport Med 00:00:00 00:00:00 [place] Medic al Branch History [facility] 2019-08-22 2019-08-22 2 University o f Transport Non-Med 00:00:00 00:00:00 [facility] edical [place] Tobacco use and 2018-11-08 2018-11-08 Never used Universit y of exposure 00:00:00 00:00:00 [place] [facility] Sex [birth year] Universit y of 00:00:00 00:00:00 [place] [facility] Smoking Status Start Date Stop Date Source Never smoker [facility] Medications Ordered Filled Start Stop Current Ordering Indication Dosage Frequency Signature Comments Components Source Medication Medication Date Date Medication? Clinician (SIG) Name Name omeprazole Yes 40mg Take 40 mg U nivers 40 mg 2-14 by mouth ity of capsule 11:30: daily. [address] ondansetron 2021-0 2021- No 4mg 4 mg, Slow Univers (ZOFRAN 09-09- IV Push, ity of (PF)) 23:15: 22:12 ONCE, 1 [place] injection 4 00 :00 dose, On Medi jennifer mg 09/09/21 Branch at 1715, MJ morpHINE 2021-0 2021- No 4mg 4 mg, Slow Un dino injection 4 -02 01-07 IV Push, ity of mg 23:15: 22:14 ONCE, 1 [place] 00 :00 dose, On Medical 09/09/21 Branch at 1715, STAT hydralAZINE 2021- No 10mg 10 mg, Uni vers (APRESOLINE 09-09 Slow IV ity of ) injection 22:15: 21:22 [place], [place] 10 mg 00 :00 ONCE, 1 Medical dose, On Branch 09/09/21 at 1615, MJ
In dication: Hypertensi ve Emergency furosemide 2021- No 40mg 40 mg, IV U nivers (LASIX) 09-09 Push, ity of injection 21:00: 20:17 ONCE, 1 [place] 40 mg 00 :00 dose, On Medical [facility] 09/09/21 Branch at 1500, MJ nitroglycer Yes [...] Branch at 1315, STAT iopamidol 2021- No [id number] 100mL 100 mL, Univers (ISOVUE 09-07 Intravenou ity o f 370-500 mL) 15:45: 15:42 s, ONCE, 1 [place] injection 00 :00 dose, On Medica l 100 mL 09/07/21 Branch at 0945, Routine omeprazole Yes 40mg Take 40 mg U nivers 40 mg 2-03 by mouth ity of capsule 13:43: daily. [address] omeprazole 2021-0 Yes 40mg Take 40 mg U nivers 40 mg 2-03 by mouth ity of capsule 13:43: daily. [address] omeprazole 0 Yes 40mg Take 40 mg U nivers 40 mg 2-03 by mouth ity of capsule 13:43: daily. [address] omeprazole 0 Yes 40mg Take 40 mg U nivers 40 mg 2-03 by mouth ity of capsule 13:43: daily. [address] omeprazole 0 Yes 40mg Take 40 mg U nivers 40 mg 2-03 by mouth ity of capsule 13:43: daily. [address] omeprazole 0 Yes 40mg Take 40 mg U nivers 40 mg 2-03 by mouth ity of capsule 13:43: daily. [address] omeprazole 0 Yes 40mg Take 40 mg U nivers 40 mg 2-03 by mouth ity of capsule 13:43: daily. [address] Branch bumetanide Yes [id number] 2mg Take 1 U nivers 2 mg tablet 2-03 tablet by ity of 00:00: mouth [place] 00 every Medical morning Branch and evening. carvediloL Yes [id number] 50mg Take 2 U nivers 25 mg 2-03 tablets by ity of tablet 00:00: mouth 2 [place] 00 (two) Medical times Branch daily with meals. hydrALAZINE Yes [id number] 25mg Take 1 Univers 25 mg 2-03 tablet by ity of tablet 00:00: mouth 2 [place] ([facility]) Medical times [place] daily. KCL 20 mEq Yes [id number] 20meq Take 1 Univers tablet 2-03 tablet [...] NSAIDS). Indication s: chronic pain bumetanide Yes [id number] 2mg Take 1 U nivers 2 mg tablet 2-03 tablet by ity of 00:00: mouth [place] 00 every Medical morning Branch and evening. carvediloL Yes [id number] 50mg Take 2 U nivers 25 mg 2-03 tablets by ity of tablet 00:00: mouth 2 [place] 00 (two) Medical times Branch daily with meals. hydrALAZINE Yes [id number] 25mg Take 1 Univers 25 mg 2-03 tablet by ity of tablet 00:00: mouth 2 [place] 00 (two) Medical times Branch daily. KCL 20 mEq 2021-0 Yes [id number] 20meq Take 1 Univers tablet 2-03 tablet [...] NSAIDS). Indication s: chronic pain bumetanide Yes [id number] 2mg Take 1 U nivers 2 mg tablet 2-03 tablet by ity of 00:00: mouth [place] 00 every Medical morning Branch and evening. carvediloL Yes [id number] 50mg Take 2 U nivers 25 mg 2-03 tablets by ity of tablet 00:00: mouth 2 [place] 00 (two) Medical times Branch daily with meals. hydrALAZINE Yes [id number] 25mg Take 1 Univers 25 mg 2-03 tablet by ity of tablet 00:00: mouth 2 [place] (two) Medical times Branch daily. KCL 20 mEq 0 Yes [id number] 20meq Take 1 Univers tablet 2-03 tablet [...] Indication s: chronic pain bumetanide 0 Yes [id number] 2mg Take 1 U nivers 2 mg tablet 2-03 tablet by ity of 00:00: mouth [place] 00 every Medical morning Branch and evening. carvediloL Yes [id number] 50mg Take 2 U nivers 25 mg 2-03 tablets by ity of tablet 00:00: mouth 2 [place] 00 (two) Medical times Branch daily with meals. hydrALAZINE 0 Yes [id number] 25mg Take 1 Univers 25 mg 2-03 tablet by ity of tablet 00:00: mouth 2 [place] 00 (two) Medical times Branch daily. KCL 20 mEq 2021-0 Yes [id number] 20meq Take 1 Univers tablet 2-03 tablet [...] NSAIDS). Indication s: chronic pain bumetanide Yes [id number] 2mg Take 1 U nivers 2 mg tablet 2-03 tablet by ity of 00:00: mouth [place] 00 every Medical morning Branch and evening. carvediloL Yes [id number] 50mg Take 2 U nivers 25 mg 2-03 tablets by ity of tablet 00:00: mouth 2 [place] 00 (two) Medical times Branch daily with meals. hydrALAZINE Yes [id number] 25mg Take 1 Univers 25 mg 2-03 tablet by ity of tablet 00:00: mouth 2 [place] 00 (two) Medical times Branch daily. KCL 20 mEq 2021-0 Yes [id number] 20meq Take 1 Univers tablet 2-03 tablet [...] take NSAIDS). Indication s: chronic pain bumetanide 2021-0 Yes [id number] 2mg Take 1 U nivers 2 mg tablet 2-03 tablet by ity of 00:00: mouth [place] 00 every Medical morning Branch and evening. carvediloL 0 Yes [id number] 50mg Take 2 U nivers 25 mg 2-03 tablets by ity of tablet 00:00: mouth 2 [place] 00 (two) Medical times Branch daily with meals. hydrALAZINE Yes [id number] 25mg Take 1 Univers 25 mg 2-03 tablet by ity of tablet 00:00: mouth 2 [place] (two) Medical times Branch daily. KCL 20 mEq 2021-0 Yes [id number] 20meq Take 1 Univers tablet 2-03 tablet [...] NSAIDS). Indication s: chronic pain bumetanide Yes [id number] 2mg Take 1 U nivers 2 mg tablet 2-03 tablet by ity of 00:00: mouth [place] 00 every Medical morning Branch and evening. carvediloL Yes [id number] 50mg Take 2 U nivers 25 mg 2-03 tablets by ity of tablet 00:00: mouth 2 (two) Medical times Branch daily with meals. hydrALAZINE Yes [id number] 25mg Take 1 Univers 25 mg 2-03 tablet by ity of tablet 00:00: mouth 2 [place] (two) Medical times Branch daily. KCL 20 mEq Yes [id number] 20meq Take 1 Univers tablet 2-03 tablet [...] Indication s: chronic pain bumetanide 0 Yes [id number] 2mg Take 1 U nivers 2 mg tablet 2-03 tablet by ity of 00:00: mouth [place] 00 every Medical morning Branch and evening. carvediloL Yes [id number] 50mg Take 2 U nivers 25 mg 2-03 tablets by ity of tablet 00:00: mouth 2 [place] (two) Medical times Branch daily with meals. hydrALAZINE Yes [id number] 25mg Take 1 Univers 25 mg 2-03 tablet by ity of tablet 00:00: mouth 2 (two) Medical times Branch daily. KCL 20 mEq 0 Yes [id number] 20meq Take 1 Univers tablet 2-03 tablet [...] take NSAIDS). Indication s: chronic pain omeprazole Yes 40mg Take 40 mg U nivers 40 mg 1-31 by mouth ity of capsule 13:41: daily. [address] omeprazole 0 Yes 40mg Take 40 mg U nivers 40 mg 1-31 by mouth ity of capsule 13:41: daily. [address] omeprazole 0 Yes 40mg Take 40 mg U nivers 40 mg 1-31 by mouth ity of capsule 13:41: daily. [address] bumetanide Yes 3mg 3 mg, Univer s (BUMEX) 1-30 Oral, ity of tablet 3 mg 23:00: QAM+PM, [place] 00 First dose Medical (after Branch last modificati on) on 09/01/21 at 1700, Until Discontinu ed, Routine acetaminoph Yes 650mg 650 mg, Un dino en 1-30 Oral, ity of (TYLENOL) 22:25: Q6HPRN, [place] tablet 650 48 Starting Medic al mg on Sun Branch 09/01/21 at 1625, Until Discontinu ed, Routine, Pain (scale 4-6) hydrALAZINE Yes 50mg 50 mg, Univ ers (APRESOLINE 1-30 Oral, Q8H, it y of ) tablet 50 04:00: First dose [place] mg 00 (after Medical last Branch modificati on) on 08/31/21 at 2200, Until Discontinu ed, Routine bumetanide 2021-0 Yes [id number] 2mg Take 1 U nivers 2 mg tablet 1-30 tablet by ity of 00:00: mouth [place] 00 every Medical morning Branch and evening. bumetanide 0 Yes [id number] 2mg Take 1 U nivers 2 mg tablet 1-30 tablet by ity of 00:00: mouth [place] 00 every Medical morning Branch and evening. bumetanide 0 Yes [id number] 2mg Take 1 U nivers 2 mg tablet 1-30 tablet by ity of 00:00: mouth [place] 00 every Medical morning Branch and evening. bumetanide 2021- No 2mg 2 mg, Unive rs (BUMEX) 08-31 Oral, ity of tablet 2 mg 23:00: 20:55 QAM+PM, [place] :04 First dose Medical on [facility] 08/31/21 at 1700, Until Discontinu ed, Routine clopidogreL Yes 75mg 75 mg, Univ ers (PLAVIX) 08-30 Oral, ity of tablet 75 15:00: DAILY, [place] mg 00 First dose Medical on [facility] Branch 08/30/21 at 0900, Until Discontinu ed, Routine aspirin EC Yes 81mg 81 mg, Unive rs tablet 81 08-30 Oral, ity of mg 15:00: DAILY, [place] 00 First dose Medical on [facility] 08/30/21 at 0900, Until Discontinu ed, Routine atorvastati Yes 80mg 80 mg, Univ ers n (LIPITOR) 08-30 Oral, QHS, it y of tablet 80 03:00: First dose [place] mg 00 on [facility] Medical 08/29/21 at Branch 2100, Until Discontinu ed, Routine bumetanide 2021- No 2mg 2 mg, Slow Univers (BUMEX) 08-30 IV Push, ity of injection 2 02:00: 22:53 BID, First [place] mg 00 :36 dose on Medical [facility] Branch 08/29/21 at 2000, Until Discontinu ed, Routine carvediloL Yes 50mg 50 mg, Unive rs (COREG) 08-29 Oral, BID ity of tablet 50 17:00: MEALS, [place] mg 00 First dose Medical on [facility] Branch 08/29/21 at 1100, Until Discontinu ed, Routine hydrALAZINE No 25mg 25 mg, Uni vers (APRESOLINE 08-29 Oral, Q8H, i ty of ) tablet 25 17:00: 19:47 First dose [place] mg 00 :19 on [facility] Medical 08/29/21 at Branch 1100, Until Discontinu ed, Routine enoxaparin Yes 30mg 30 mg, Unive rs (LOVENOX) 08-29 Subcutaneo ity of injection 15:00: us, DAILY, [place] 30 mg 00 First dose Medical on [facility] Branch 08/29/21 at 0900, Until Discontinu ed, Routine KCL No 20meq 20 mEq, Univers (KLOR-CON 08-29 Oral, ity of M20) tablet 11:00: 11:18 ONCE, 1 [place] 20 mEq 00 :00 dose, On Medical [facility] Branch 08/29/21 at 0500, Routine magnesium No 2g 2 g, IV Univ ers sulfate in 08-29 Piggyback, it y of water 2 11:00: 11:17 ONCE, 1 [place] gram/50 mL 00 :00 dose, On Medic al (4 %) [facility] infusion 2 08/29/21 at g 0500, Routine omeprazole Yes 40mg Take 40 mg U nivers 40 mg 08-29 by mouth ity of capsule 10:52: daily. [address] Branch furosemide No 40mg 40 mg, Univ ers (LASIX) [...] as mg 00 :00 dose, On Medical Wed Branch 08/28/21 at 2045, STAT aspirin 2021- [...] 00 :00 dose, On Medi jennifer mg Wed Branch 08/28/21 at 1930, MJ morpHINE 2021- No 4mg [...] dication: Hypertensi ve Emergency nitroglycer 2021- No [id number] .4mg U nivers in 08-29 ity of (NITROSTAT) 00:15: 23:43 [place] sublingual 00 :00 Medical tablet 0.4 Branch mg cloNIDine 2021- No [id number] .2mg Uni vers (CATAPRES) 08-29 ity of tablet 0.2 00:15: 23:19 [place] mg 00 :36 Medical Branch nitroglycer 2021- No [id number] .4mg 0.4 mg, Univers in 08-29 Sublingual ity of (NITROSTAT) 00:15: 23:43 , ONCE, 1 [place] sublingual 00 :00 dose, On Medic al tablet 0.4 Wed Branch mg 08/28/21 at 1815, Routine nitroglycer 2021- No [id number] .4mg U nivers in 08-29 ity of (NITROSTAT) 00:15: 23:43 [place] sublingual 00 :00 Medical tablet 0.4 Branch mg omeprazole Yes 40mg Take 40 mg U nivers 40 mg -24 by mouth ity of capsule 10:52: daily. [place] 38 Medical Branch hydrALAZINE 2021- Yes [id number] 25mg Take 1 Univers 25 mg -24 -24 tablet by ity of tablet 00:00: 05:59 mouth 2 [place] 00 :00 (two) Medical times Branch daily for 30 days. KCL 20 mEq 2021- Yes [id number] 20meq Take 1 Univers tablet -24 -24 tablet by ity of 00:00: 05:59 mouth [place] 00 :00 daily for Medical 30 days. Branch bumetanide 2021- Yes [id number] 1mg Take 1 Univers 1 mg tablet -26 09-24 tablet by it y of 00:00: 05:59 mouth [place] 00 :00 every Medical morning Branch and evening for 30 days. carvediloL 2021- Yes [id number] 50mg Take 2 Univers 25 mg 1-24 02-24 tablets by ity of tablet 00:00: 05:59 mouth 2 [place] 00 :00 (two) Medical times Branch daily with meals for 30 days. hydrALAZINE 2021- Yes [id number] 25mg Take 1 Univers 25 mg 1-24 02-24 tablet by ity of tablet 00:00: 05:59 mouth 2 [place] 00 :00 (two) Medical times Branch daily for 30 days. KCL 20 mEq 2021- Yes [id number] 20meq Take 1 Univers tablet -26 09-24 tablet by ity of 00:00: 05:59 mouth [place] 00 :00 daily for Medical 30 days. Branch bumetanide 2021- Yes [id number] 1mg Take 1 Univers 1 mg tablet -26 09-24 tablet by it y of 00:00: 05:59 mouth [place] 00 :00 every Medical morning Branch and evening for 30 days. carvediloL 2021- Yes [id number] 50mg Take 2 Univers 25 mg 1-24 02-24 tablets by ity of tablet 00:00: 05:59 mouth 2 [place] 00 :00 (two) Medical times Branch daily with meals for 30 days. hydrALAZINE 2021- Yes [id number] 25mg Take 1 Univers 25 mg 1-24 -24 tablet by ity of tablet 00:00: 05:59 mouth 2 [place] 00 :00 (two) Medical times Branch daily for 30 days. KCL 20 mEq 2021- Yes [id number] 20meq Take 1 Univers tablet -26 09-24 tablet by ity of 00:00: 05:59 mouth [place] 00 :00 daily for Medical 30 days. Branch carvediloL 2021- Yes [id number] 50mg Take 2 Univers 25 mg 1-24 -24 tablets by ity of tablet 00:00: 05:59 mouth 2 [place] 00 :00 (two) Medical times Branch daily with meals for 30 days. hydrALAZINE 2021- Yes [id number] 25mg Take 1 Univers 25 mg 1-24 -24 tablet by ity of tablet 00:00: 05:59 mouth 2 [place] 00 :00 (two) Medical times Branch daily for 30 days. KCL 20 mEq 2021- Yes [id number] 20meq Take 1 Univers tablet 1-24 -24 tablet by ity of 00:00: 05:59 mouth [place] 00 :00 daily for Medical 30 days. Branch carvediloL 2021- Yes [id number] 50mg Take 2 Univers 25 mg 1-24 02-24 tablets by ity of tablet 00:00: 05:59 mouth 2 [place] 00 :00 (two) Medical times Branch daily with meals for 30 days. hydrALAZINE 2021- Yes [id number] 25mg Take 1 Univers 25 mg 08-26 tablet by ity of tablet 00:00: 05:59 mouth 2 [place] 00 :00 (two) Medical times Branch daily for 30 days. KCL 20 mEq 2021- Yes [id number] 20meq Take 1 Univers tablet 08-26 tablet by ity of 00:00: 05:59 mouth [place] 00 :00 daily for Medical 30 days. Branch carvediloL 2021- Yes [id number] 50mg Take 2 Univers 25 mg 08-26 tablets by ity of tablet 00:00: 05:59 mouth 2 [place] 00 :00 (two) Medical times Branch daily with meals for 30 days. bumetanide 2021- No [id number] 1mg Take 1 Univers 1 mg tablet 08-26 tablet by it y of 00:00: 00:00 mouth [place] 00 :00 every Medical morning Branch and evening for 30 days. acetaminoph 2021- Yes [id number] 650mg Take 2 Univers en 325 mg 08-09-07 tablets by ity of tablet 00:00: 05:59 mouth [place] 00 :00 every 6 Medical (six) Branch hours as needed for Pain (scale 1-3) or Temp > 38.5 C for up to 30 days. acetaminoph 2021- Yes [id number] 650mg Take 2 Univers en 325 mg -02 01-07 tablets by ity of tablet 00:00: 05:59 mouth [place] 00 :00 every 6 Medical (six) Branch hours as needed for Pain (scale 1-3) or Temp > 38.5 C for up to 30 days. acetaminoph 2021- Yes [id number] 650mg Take 2 Univers en 325 mg -02 01-07 tablets by ity of tablet 00:00: 05:59 mouth [place] 00 :00 every 6 Medical (six) Branch hours as needed for Pain (scale 1-3) or Temp > 38.5 C for up to 30 days. acetaminoph 2021- Yes [id number] 650mg Take 2 Univers en 325 mg -02 01-07 tablets by ity of tablet 00:00: 05:59 mouth [place] 00 :00 every 6 Medical (six) Branch hours as needed for Pain (scale 1-3) or Temp > 38.5 C for up to 30 days. acetaminoph 2021- Yes [id number] 650mg Take 2 Univers en 325 mg 08-09-07 tablets by ity of tablet 00:00: 05:59 mouth [place] 00 :00 every 6 Medical (six) Branch hours as needed for Pain (scale 1-3) or Temp > 38.5 C for up to 30 days. acetaminoph 2021- Yes [id number] 650mg Take 2 Univers en 325 mg 08-09-07 tablets by ity of tablet 00:00: 05:59 mouth [place] 00 :00 every 6 Medical (six) Branch hours as needed for Pain (scale 1-3) or Temp > 38.5 C for up to 30 days. acetaminoph 2021- Yes [id number] 650mg Take 2 Univers en 325 mg 08-09- tablets by ity of tablet 00:00: 05:59 mouth [place] 00 :00 every 6 Medical (six) Branch hours as needed for Pain (scale 1-3) or Temp > 38.5 C for up to 30 days. acetaminoph 2021- Yes [id number] 650mg Take 2 Univers en 325 mg 08-09-07 tablets by ity of tablet 00:00: 05:59 mouth [place] 00 :00 every 6 Medical (six) Branch hours as needed for Pain (scale 1-3) or Temp > 38.5 C for up to 30 days. cholecalcif 2020-08 Yes [id number] 1000U Take 1 Univers mika, 2-22 tablet by ity of vitamin D3, 00:00: mouth [place] 25 mcg 00 daily. Medical (1,000 Branch unit) tablet cholecalcif 2020- Yes [id number] 1000U Take 1 Univers mika, 2-22 tablet by ity of vitamin D3, 00:00: mouth [place] 25 mcg 00 daily. Medical (1,000 Branch unit) tablet cholecalcif 2020- Yes [id number] 1000U Take 1 Univers mika, 2-22 tablet by ity of vitamin D3, 00:00: mouth [place] 25 mcg 00 daily. Medical (1,000 Branch unit) tablet cholecalcif 2021-1 Yes [id number] 1000U Take 1 Univers mika, 2-22 tablet by ity of vitamin D3, 00:00: mouth [place] 25 mcg 00 daily. Medical (1,000 Branch unit) tablet cholecalcif 2021-1 Yes [id number] 1000U Take 1 Univers mika, 2-22 tablet by ity of vitamin D3, 00:00: mouth [place] 25 mcg 00 daily. Medical (1,000 Branch unit) tablet cholecalcif 2021-1 Yes [id number] 1000U Take 1 Univers mika, 2-22 tablet by ity of vitamin D3, 00:00: mouth [place] 25 mcg 00 daily. Medical (1,000 Branch unit) tablet cholecalcif 2021-1 Yes [id number] 1000U Take 1 Univers mika, 2-22 tablet by ity of vitamin D3, 00:00: mouth [place] 25 mcg 00 daily. Medical (1,000 Branch unit) tablet cholecalcif 2021-1 Yes [id number] 1000U Take 1 Univers mika, 2-22 tablet by ity of vitamin D3, 00:00: mouth [place] 25 mcg 00 daily. Medical (1,000 Branch unit) tablet cholecalcif 2021-1 Yes [id number] 1000U Take 1 Univers mika, 2-22 tablet by ity of vitamin D3, 00:00: mouth [place] 25 mcg 00 daily. Medical (1,000 Branch unit) tablet cholecalcif 2021-1 Yes [id number] 1000U Take 1 Univers mika, 2-22 tablet by ity of vitamin D3, 00:00: mouth [place] 25 mcg 00 daily. Medical (1,000 Branch unit) tablet cholecalcif 2021-1 Yes [id number] 1000U Take 1 Univers mika, 2-22 tablet by ity of vitamin D3, 00:00: mouth [place] 25 mcg 00 daily. Medical (1,000 Branch unit) tablet cholecalcif 2021-1 Yes [id number] 1000U Take 1 Univers mika, 2-22 tablet by ity of vitamin D3, 00:00: mouth [place] 25 mcg 00 daily. Medical (1,000 Branch unit) tablet cholecalcif 2021-1 Yes [id number] 1000U Take 1 Univers mika, 2-22 tablet by ity of vitamin D3, 00:00: mouth [place] 25 mcg 00 daily. Medical (1,000 Branch unit) tablet clopidogreL 2020-08 Yes [id number] 75mg Take 1 Univers 75 mg 0-22 tablet by ity of tablet 00:00: mouth [place] 00 daily. Medical Branch atorvastati 2020-08 Yes [id number] 80mg Take 1 Univers n 80 mg 0-22 tablet by ity of tablet 00:00: mouth at [place] 00 bedtime. Medical Branch clopidogreL 2020-08 Yes [id number] 75mg Take 1 Univers 75 mg 0-22 tablet by ity of tablet 00:00: mouth [place] 00 daily. Medical Branch atorvastati 2020-08 Yes [id number] 80mg Take 1 Univers n 80 mg 0-22 tablet by ity of tablet 00:00: mouth at [place] 00 bedtime. Medical Branch clopidogreL 2020-08 Yes [id number] 75mg Take 1 Univers 75 mg 0-22 tablet by ity of tablet 00:00: mouth [place] 00 daily. Medical Branch atorvastati 2020-08 Yes [id number] 80mg Take 1 Univers n 80 mg 0-22 tablet by ity of tablet 00:00: mouth at [place] 00 bedtime. Medical Branch clopidogreL 2020-08 Yes [id number] 75mg Take 1 Univers 75 mg 0-22 tablet by ity of tablet 00:00: mouth [place] 00 daily. Medical Branch atorvastati 2020-08 Yes [id number] 80mg Take 1 Univers n 80 mg 0-22 tablet by ity of tablet 00:00: mouth at [place] 00 bedtime. Medical Branch clopidogreL 2020-08 Yes [id number] 75mg Take 1 Univers 75 mg 0-22 tablet by ity of tablet 00:00: mouth [place] 00 daily. Medical Branch atorvastati 2020-08 Yes [id number] 80mg Take 1 Univers n 80 mg 0-22 tablet by ity of tablet 00:00: mouth at [place] 00 bedtime. Medical Branch clopidogreL 2020-08 Yes [id number] 75mg Take 1 Univers 75 mg 0-22 tablet by ity of tablet 00:00: mouth [place] 00 daily. Medical Branch atorvastati 2020-08 Yes [id number] 80mg Take 1 Univers n 80 mg 0-22 tablet by ity of tablet 00:00: mouth at [place] 00 bedtime. Medical Branch clopidogreL 2020-08 Yes [id number] 75mg Take 1 [facility] 75 mg 0-22 tablet by ity of tablet 00:00: mouth [place] 00 daily. Medical Branch atorvastati 2020-08 Yes [id number] 80mg Take 1 Univers n 80 mg 0-22 tablet by ity of tablet 00:00: mouth at [place] 00 bedtime. Medical Branch clopidogreL 2020-08 Yes [id number] 75mg Take 1 [facility] 75 mg 0-22 tablet by ity of tablet 00:00: mouth [place] 00 daily. Medical Branch atorvastati 2020-08 Yes [id number] 80mg Take 1 Univers n 80 mg 0-22 tablet by ity of tablet 00:00: mouth at [place] 00 bedtime. Medical Branch clopidogreL 2020-08 Yes [id number] 75mg Take 1 [facility] 75 mg 0-22 tablet by ity of tablet 00:00: mouth [place] 00 daily. Medical Branch atorvastati 2020-08 Yes [id number] 80mg Take 1 Univers n 80 mg 0-22 tablet by ity of tablet 00:00: mouth at [place] 00 bedtime. Medical Branch clopidogreL 2020-08 Yes [id number] 75mg Take 1 [facility] 75 mg 0-22 tablet by ity of tablet 00:00: mouth [place] 00 daily. Medical Branch atorvastati 2020-08 Yes [id number] 80mg Take 1 [facility] n 80 mg 0-22 tablet by ity of tablet 00:00: mouth at [place] 00 bedtime. Medical Branch clopidogreL 2020-08 Yes [id number] 75mg Take 1 [facility] 75 mg 0-22 tablet by ity of tablet 00:00: mouth [place] 00 daily. Medical Branch atorvastati 2020-08 Yes [id number] 80mg Take 1 [facility] n 80 mg 0-22 tablet by ity of tablet 00:00: mouth at [place] 00 bedtime. Medical Branch clopidogreL 2020-08 Yes [id number] 75mg Take 1 [facility] 75 mg 0-22 tablet by ity of tablet 00:00: mouth [place] 00 daily. Medical Branch atorvastati 2020-08 Yes [id number] 80mg Take 1 Univers n 80 mg 0-22 tablet by ity of tablet 00:00: mouth at [place] 00 bedtime. Medical Branch clopidogreL 2020-08 Yes [id number] 75mg Take 1 [facility] 75 mg 0-22 tablet by ity of tablet 00:00: mouth [place] 00 daily. Medical Branch atorvastati 2020- Yes [id number] 80mg Take 1 Univers n 80 mg 0-22 tablet by ity of tablet 00:00: mouth at [place] 00 bedtime. Medical Branch aspirin 81 2020-0 Yes [id number] 81mg Take 1 U nivers mg EC 9-08 tablet by ity of tablet 00:00: mouth [place] 00 daily. Medical Branch aspirin 81 2020-0 Yes [id number] 81mg Take 1 U nivers mg EC 9-08 tablet by ity of tablet 00:00: mouth [place] 00 daily. Medical Branch aspirin 81 2020-0 Yes [id number] 81mg Take 1 U nivers mg EC 9-08 tablet by ity of tablet 00:00: mouth [place] 00 daily. Medical Branch aspirin 81 2020-0 Yes [id number] 81mg Take 1 U nivers mg EC 9-08 tablet by ity of tablet 00:00: mouth [place] 00 daily. Medical Branch aspirin 81 2020-0 Yes [id number] 81mg Take 1 U nivers mg EC 9-08 tablet by ity of tablet 00:00: mouth [place] 00 daily. Medical Branch aspirin 81 2020-0 Yes [id number] 81mg Take 1 U nivers mg EC 9-08 tablet by ity of tablet 00:00: mouth [place] 00 daily. Medical Branch aspirin 81 2020-0 Yes [id number] 81mg Take 1 U nivers mg EC 9-08 tablet by ity of tablet 00:00: mouth [place] 00 daily. Medical Branch aspirin 81 2020-0 Yes [id number] 81mg Take 1 U nivers mg EC 9-08 tablet by ity of tablet 00:00: mouth [place] 00 daily. Medical Branch aspirin 81 2020-0 Yes [id number] 81mg Take 1 U nivers mg EC 9-08 tablet by ity of tablet 00:00: mouth [place] 00 daily. Medical Branch aspirin 81 2020-0 Yes [id number] 81mg Take 1 U nivers mg EC 9-08 tablet by ity of tablet 00:00: mouth [place] 00 daily. Medical Branch aspirin 81 2020-0 Yes [id number] 81mg Take 1 U nivers mg EC 9-08 tablet by ity of tablet 00:00: mouth [place] 00 daily. Medical Branch aspirin 81 2020-0 Yes [id number] 81mg Take 1 U nivers mg EC 9-08 tablet by ity of tablet 00:00: mouth [place] 00 daily. Medical Branch aspirin 81 1-0 Yes [id number] 81mg Take 1 U nivers mg EC 9-08 tablet by ity of tablet 00:00: mouth [place] 00 daily. Medical Branch nitroglycer 1-[id number] 1 Univers in 0.4 mg 5-28 tablet ity of sublingual 00:00: under the [place] tablet 00 tongue Medical every 5 Branch (five) minutes as needed for Chest pain. nitroglycer 2020-[id number] 1 Univers in 0.4 mg 5-28 tablet ity of sublingual 00:00: under the [place] tablet 00 tongue Medical every 5 Branch (five) minutes as needed for Chest pain. nitroglycer 2020-[id number] 1 Univers in 0.4 mg 5-28 tablet ity of sublingual 00:00: under the [place] tablet 00 tongue Medical every 5 Branch (five) minutes as needed for Chest pain. nitroglycer 2020-[id number] 1 Univers in 0.4 mg 5-28 tablet ity of sublingual 00:00: under the [place] tablet 00 tongue Medical every 5 Branch (five) minutes as needed for Chest pain. nitroglycer 2020-[id number] 1 Univers in 0.4 mg 5-28 tablet ity of sublingual 00:00: under the [place] tablet 00 tongue Medical every 5 Branch (five) minutes as needed for Chest pain. nitroglycer 2020-[id number] 1 Univers in 0.4 mg 5-28 tablet ity of sublingual 00:00: under the [place] tablet 00 tongue Medical every 5 Branch (five) minutes as needed for Chest pain. nitroglycer 2020-[id number] 1 Univers in 0.4 mg 5-28 tablet ity of sublingual 00:00: under the [place] tablet 00 tongue Medical every 5 Branch (five) minutes as needed for Chest pain. nitroglycer 2021-[id number] 1 Univers in 0.4 mg 5-28 tablet ity of sublingual 00:00: under the [place] tablet 00 tongue Medical every 5 Branch (five) minutes as needed for Chest pain. nitroglycer 2020-[id number] 1 Univers in 0.4 mg 5-28 tablet ity of sublingual 00:00: under the [place] tablet 00 tongue Medical every 5 Branch (five) minutes as needed for Chest pain. nitroglycer 2020-[id number] 1 Univers in 0.4 mg 5-28 tablet ity of sublingual 00:00: under the [place] tablet 00 tongue Medical every 5 Branch (five) minutes as needed for Chest pain. nitroglycer 2020-[id number] 1 Univers in 0.4 mg 5-28 tablet ity of sublingual 00:00: under the [place] tablet 00 tongue Medical every 5 Branch (five) minutes as needed for Chest pain. nitroglycer 2020-[id number] 1 Univers in 0.4 mg 5-28 tablet ity of sublingual 00:00: under the [place] tablet 00 tongue Medical every 5 Branch (five) minutes as needed for Chest pain. nitroglycer 2020-[id number] 1 Univers in 0.4 mg 5-28 tablet ity of sublingual 00:00: under the [place] tablet 00 tongue Medical every 5 Branch (five) minutes as needed for Chest pain. Immunizations Ordered Filled Immunization Date Status Comments [facility] e Immunization Name Name SARS-COV-2 COVID-19 2021-08-02 Completed Unive rsity of PFIZER VACCINE 00:00:00 [facility] SARS-COV-2 COVID-19 2021-08-02 Completed Unive rsity of PFIZER VACCINE 00:00:00 [facility] SARS-COV-2 COVID-19 2021-08-02 Completed Unive rsity of PFIZER VACCINE 00:00:00 [facility] SARS-COV-2 COVID-19 2021-08-02 Completed Unive rsity of PFIZER VACCINE 00:00:00 [facility] SARS-COV-2 COVID-19 2021-08-02 Completed Unive rsity of PFIZER VACCINE 00:00:00 [facility] SARS-COV-2 COVID-19 2021-08-02 Completed Unive rsity of PFIZER VACCINE 00:00:00 [facility] SARS-COV-2 COVID-19 2021-08-02 Completed Unive rsity of PFIZER VACCINE 00:00:00 [facility] SARS-COV-2 COVID-19 2021-08-02 Completed Unive rsity of PFIZER VACCINE 00:00:00 [facility] SARS-COV-2 COVID-19 2021-08-02 Completed Unive rsity of PFIZER VACCINE 00:00:00 [facility] SARS-COV-2 COVID-19 2021-08-02 Completed Unive rsity of PFIZER VACCINE 00:00:00 [facility] SARS-COV-2 COVID-19 2021-08-02 Completed Unive rsity of PFIZER VACCINE 00:00:00 [facility] SARS-COV-2 COVID-19 2021-08-02 Completed Unive rsity of PFIZER VACCINE 00:00:00 [facility] SARS-COV-2 COVID-19 2021-08-02 Completed Unive rsity of PFIZER VACCINE 00:00:00 [facility] Influenza Virus 2020-09-24 Completed Universit y of [...] y of Vaccine Quad IM 3+ 00:00:00 [facility] Influenza Virus 2018-07-07 Completed Universit y of Vaccine Quad IM 3+ 00:00:00 [facility] Influenza Virus 2018-07-07 Completed Universit y of Vaccine Quad IM 3+ 00:00:00 [facility] Influenza Virus 2018-07-07 Completed Universit y of Vaccine Quad IM 3+ 00:00:00 [facility] Influenza Virus 2018-07-07 Completed Universit y of Vaccine Quad IM 3+ 00:00:00 [facility] Influenza Virus 2018-07-07 Completed Universit y of Vaccine Quad IM 3+ 00:00:00 [facility] Influenza Virus 2018-07-07 Completed Universit y of Vaccine Quad IM 3+ 00:00:00 [facility] Influenza Virus 2018-07-07 Completed Universit y of Vaccine Quad IM 3+ 00:00:00 [facility] Influenza Virus 2018-07-07 Completed Universit y of Vaccine Quad IM 3+ 00:00:00 [facility] Influenza Virus 2018-07-07 Completed Universit y of Vaccine Quad IM 3+ 00:00:00 [facility] Influenza Virus 2018-07-07 Completed Universit y of Vaccine Quad IM 3+ 00:00:00 [facility] Influenza Virus 2018-07-07 Completed Universit y of Vaccine Quad IM 3+ 00:00:00 [facility] Influenza Virus 2018-07-07 Completed Universit y of Vaccine Quad IM 3+ 00:00:00 [facility] Td 2017-08-01 Completed University of 00:00:00 [facility] Td 2017-08-01 Completed University of 00:00:00 [facility] Td 2017-08-01 Completed University of 00:00:00 [facility] Td 2017-08-01 Completed University of 00:00:00 [facility] Td 2017-08-01 Completed University of 00:00:00 [facility] Td 2017-08-01 Completed University of 00:00:00 [facility] Td 2017-08-01 Completed University of 00:00:00 [facility] Td 2017-08-01 Completed University of 00:00:00 [facility] Td 2017-08-01 Completed University of 00:00:00 [facility] Td 2017-08-01 Completed University of 00:00:00 [facility] Td 2017-08-01 Completed University of 00:00:00 [facility] Td 2017-08-01 Completed University of 00:00:00 [facility] Td 2017-08-01 Completed University of 00:00:00 [facility] Influenza Virus 2016-05-22 Completed Universit y of Vaccine Quad IM 3+ 00:00:00 [facility] Influenza Virus 2016-05-22 Completed Universit y of Vaccine Quad IM 3+ 00:00:00 [facility] Influenza Virus 2016-05-22 Completed Universit y of Vaccine Quad IM 3+ 00:00:00 [facility] Influenza Virus 2016-05-22 Completed Universit y of Vaccine Quad IM 3+ 00:00:00 [facility] Influenza Virus 2016-05-22 Completed Universit y of Vaccine Quad IM 3+ 00:00:00 [facility] Influenza Virus 2016-05-22 Completed Universit y of Vaccine Quad IM 3+ 00:00:00 [facility] Influenza Virus 2016-05-22 Completed Universit y of Vaccine Quad IM 3+ 00:00:00 [facility] Influenza Virus 2016-05-22 Completed Universit y of Vaccine Quad IM 3+ 00:00:00 [facility] Influenza Virus 2016-05-22 Completed Universit y of Vaccine Quad IM 3+ 00:00:00 [facility] Influenza Virus 2016-05-22 Completed Universit y of Vaccine Quad IM 3+ 00:00:00 [facility] Influenza Virus 2016-05-22 Completed Universit y of Vaccine Quad IM 3+ 00:00:00 [facility] Influenza Virus 2016-05-22 Completed Universit y of Vaccine Quad IM 3+ 00:00:00 [facility] Influenza Virus 2016-05-22 Completed Universit y of Vaccine Quad IM 3+ 00:00:00 [facility] Pneumococcal 2015-08-31 Completed University o f Polysaccharide, [...] [place] [facility] ical Multi-dose 6+ MO Branch Influenza Virus 2015-05-25 Completed Universit y of Vaccine Quad IM 00:00:00 [place] [facility] ical Multi-dose 6+ MO Branch Vital Signs Vital Name Observation Time Observation Value Comments Source Systolic blood 2021-09-16 21:47:00 179 mm[Hg] Univer sity of pressure [place] [facility] [place] Diastolic blood 2021-09-16 21:47:00 115 mm[Hg] Unive rsity of pressure [place] [facility] Heart rate 2021-09-16 21:47:00 88 /min Universi ty of [place] [facility] Respiratory rate 2021-09-16 21:47:00 19 /min Univ ersity of [place] [facility] Oxygen saturation in 2021-09-16 21:47:00 97 /min University of Arterial blood by [place] [employer] Pulse oximetry Branch Body temperature 2021-09-16 18:00:00 36.78 Sara [facility] ersity of [place] [facility] Body height 2021-09-16 17:55:31 188 cm Universi ty of [place] [facility] Body weight 2021-09-16 17:55:31 146.557 kg [facility]i [facility] of [place] [facility] BMI 2021-09-16 17:55:31 41.48 kg/m2 [facility]i [facility] of [place] [facility] Systolic blood 2021-09-09 22:06:00 150 mm[Hg] Univer sity of pressure [place] [facility] Diastolic blood 2021-09-09 22:06:00 100 mm[Hg] Unive rsity of pressure [place] [facility] Heart rate 2021-09-09 22:06:00 91 /min Universi ty of [place] [facility] Respiratory rate 2021-09-09 22:06:00 19 /min Univ ersity of [place] [facility] Oxygen saturation in 2021-09-09 22:06:00 99 /min University of Arterial blood by [employer] [facility] Pulse oximetry Branch Body temperature 2021-09-09 17:05:00 37.39 Sara [facility] ersity of [place] [facility] Body weight 2021-09-09 17:05:00 138 kg Universi ty of [place] [facility] BMI 2021-09-09 17:05:00 39.06 kg/m2 Universi ty of [place] [facility] Systolic blood 2021-09-07 18:15:00 159 mm[Hg] Univer sity of pressure [place] [facility] Diastolic blood 2021-09-07 18:15:00 121 mm[Hg] Unive rsity of pressure [place] [facility] Heart rate 2021-09-07 18:15:00 92 /min Universi ty of [place] [facility] Respiratory rate 2021-09-07 18:15:00 28 /min Univ ersity of [place] [facility] Oxygen saturation in 2021-09-07 18:15:00 99 /min University of Arterial blood by [place] [employer] [facility] Pulse oximetry Branch Body temperature 2021-09-07 15:05:00 37 Sara [facility] ersity of [place] [facility] Body weight 2021-09-07 15:05:00 137.893 kg [facility]i ty of [place] [facility] BMI 2021-09-07 15:05:00 39.03 kg/m2 Universi [facility] [place] [facility] Systolic blood 2021-09-02 17:25:00 154 mm[Hg] Univer sity of pressure [place] [facility] Diastolic blood 2021-09-02 17:25:00 97 mm[Hg] Unive rsity of pressure [place] [facility] Heart rate 2021-09-02 17:25:00 81 /min [facility]i ty [facility] [place] [facility] Body temperature 2021-09-02 17:25:00 36.56 Sara [facility] ersity of [place] [facility] Respiratory rate 2021-09-02 17:25:00 17 /min Univ ersity of [place] [facility] Oxygen saturation in 2021-09-02 17:25:00 92 /min University of Arterial blood by [place] [employer] [facility] Pulse oximetry Branch Body weight 2021-09-02 02:00:00 138.256 kg [facility]i [facility] [place] [facility] BMI 2021-09-02 02:00:00 39.13 kg/m2 [facility] [place] [facility] Body height 2021-08-29 03:50:00 188 cm [facility]i [facility] [place] [facility] Systolic blood 2021-08-28 22:51:00 176 mm[Hg] Univer sity of pressure [place] [facility] Diastolic blood 2021-08-28 22:51:00 121 mm[Hg] Unive rsity of pressure [place] [facility] Heart rate 2021-08-28 22:51:00 92 /min [facility]i [facility] [place] [facility] Body temperature 2021-08-28 22:51:00 36.33 Sara [facility] Respiratory rate 2021-08-28 22:51:00 18 /min [facility] Body weight 2021-08-28 22:51:00 141.522 kg [facility] BMI 2021-08-28 22:51:00 40.06 kg/m2 [facility] Oxygen saturation in 2021-08-28 22:51:00 96 /min [facility] Arterial blood by [facility] Pulse oximetry [place] Procedures Procedure Date / Time Performing Clinician Source Performed TROPONIN I 2021-09-16 21:02:00 Mary Reynaga [facility] XR CHEST 1 VW 2021-09-16 18:39:37 Mary Reynaga [facility] MAGNESIUM 2021-09-16 18:22:00 Mary Reynaga [facility] TROPONIN I 2021-09-16 18:22:00 Mary Reynaga [facility] COMP. METABOLIC PANEL 2021-09-16 18:22:00 Mary Reynaga [facility] ([id number] CBC WITH DIFF 2021-09-16 18:22:00 Mary Reynaga [facility] N-TERMINAL PRO-BNP 2021-09-16 18:22:00 Mary Reynaga [facility] URINALYSIS 2021-09-09 21:24:00 Jairo Jordan [facility] TROPONIN I 2021-09-09 19:03:00 Jairo Jordan [facility] XR CHEST 1 VW 2021-09-09 18:01:50 Jairo Jordan [facility] COVID-19 (ID NOW RAPID 2021-09-09 17:33:00 Jairo Jordan [facility] TESTING) [facility] MAGNESIUM 2021-09-09 17:27:00 Jairo Jordan [facility] TROPONIN I 2021-09-09 17:27:00 Jairo Jordan [facility] COMP. METABOLIC PANEL 2021-09-09 17:27:00 Jairo Jordan [facility] ([id number]) Medical Branch N-TERMINAL PRO-BNP 2021-09-09 17:27:00 Jairo Jordan [facility] CBC WITH DIFF 2021-09-09 17:26:00 Jairo Jordan [place] [facility] [place] [facility] TROPONIN I 2021-09-07 17:42:00 Mary Reynaga [facility] XR CHEST 1 VW 2021-09-07 16:20:20 Mary Reynaga [facility] CT STROKE ANGIOGRAM HEAD 2021-09-07 15:58:28 Mary Reynaga [facility] CT STROKE ANGIOGRAM NECK 2021-09-07 15:58:28 Mary Reynaga [facility] CT STROKE HEAD WO 2021-09-07 15:52:52 Mary Reynaga [facility] POCT GLUCOSE (AUTOMATED) 2021-09-07 15:15:00 Mary Reynaga [facility] MAGNESIUM 2021-09-07 15:13:00 Mary Reynaga [facility] TROPONIN I 2021-09-07 15:13:00 Mary Reynaga [facility] COMP. METABOLIC PANEL 2021-09-07 15:13:00 Mary Reynaga [facility] ([id number]) Medical Branch CBC WITH DIFF 2021-09-07 15:13:00 Mary Reynaga [facility] PROTHROMBIN TIME / INR 2021-09-07 15:13:00 Mary Reynaga [facility] N-TERMINAL PRO-BNP 2021-09-07 15:13:00 Mary Reynaga [facility] COVID-19 (ID NOW RAPID 2021-09-07 15:13:00 Mary Reynaga [facility] TESTING) Medical [place] BASIC METABOLIC PANEL 2021-09-02 11:11:00 Gilberto Felipe [facility] (NA, K, CL, CO2, GLUCOSE, Medica l Branch BUN, CREATININE, CA) EXTRA TUBE LAV 2021-09-02 11:11:00 Goran Mccormack [facility] BASIC METABOLIC PANEL 2021-09-01 14:43:00 Gilberto Felipe [facility] (NA, K, CL, CO2, GLUCOSE, Medica l Branch BUN, CREATININE, CA) BASIC METABOLIC PANEL 2021-08-30 13:10:00 Yessica [facility] (NA, K, CL, CO2, GLUCOSE, Medica l Branch BUN, CREATININE, CA) CBC WITH DIFF 2021-08-30 11:20:00 Yessica [facility] MAGNESIUM 2021-08-29 09:35:00 Yessica [facility] COMP. METABOLIC PANEL 2021-08-29 09:35:00 Yessica [facility] ([id number]) [facility] CBC WITH DIFF 2021-08-29 09:35:00 Yessica [facility] POCT GLUCOSE (AUTOMATED) 2021-08-29 05:51:00 Izaiah Hobbs [facility] CK (CREATINE KINASE) + MB 2021-08-29 04:26:00 [facility]ica [facility] 2021-08-29 04:26:00 Yessica [facility] THYROID STIMULATING 2021-08-29 04:26:00 Yessica [facility] HORMONE [facility] D-DIMER 2021-08-29 04:26:00 Yessica [facility] MRSA / MSSA SCREEN BY 2021-08-29 04:05:00 Yessica [facility] PCR, NARES [facility] Branch XR CHEST 1 VW 2021-08-28 23:39:33 Mac Miranda [facility] TROPONIN I 2021-08-28 23:27:00 Mac Miranda [facility] COMP. METABOLIC PANEL 2021-08-28 23:27:00 Mac Miranda [facility] ([id number]) [facility] CBC WITH DIFF 2021-08-28 23:27:00 Mac Miranda [facility] PROTHROMBIN TIME / INR 2021-08-28 23:27:00 Mac Miranda [facility] ACTIVATED PARTIAL 2021-08-28 23:27:00 Mac Miranda [facility] THRMPLAS [facility] N-TERMINAL PRO-BNP 2021-08-28 23:27:00 Mac Miranda [facility] COVID-19 (ID NOW RAPID 2021-08-28 23:27:00 Mac Miranda [facility] TESTING) Medical Branch LAB ONLY COVID 2021-08-28 23:27:00 Mac Miranda [place] INTERPRETATION [facility] EKG (SCANNED DOCUMENTS) 2021-08-28 06:01:00 Doctor UnassignedVeronique [facility] Name [facility] HOSPITAL ADMISSION 2021-08-28 06:01:00 Doctor Unassbrandie [facility] [id number] 2021-03-01 [id number] 2021-03-01 [facility] [id number] 2021-01-03 00:00:00 [facility] [id number] 2020-12-04 00:00:00 [facility] [id number] 2020-12-04 00:00:00 [facility] Plan of Care Planned Activity Planned Date Details Comments Source Medication 2021-09-17 furosemide (LASIX) [facility] 00:00:00 injection 40 mg [code Medica l Branch = [id number]] Encounters Start End Encounter Admission Attending Care Care Encounter Source Date/Time Date/Time Type Type Clinicians Facility Department ID 2020-11-29 Inpatient HCACR PAOLA [id number] [facility] 15:07:00 [id number] [facility] 2020-11-29 Inpatient HCAPM PAOLA [id number] [facility] 09:29:00 [id number] [facility] [place] 2022-02-11 2022-02-11 Outpatient Paul JONES [facility] [id number] Univers 14:00:00 14:00:00 ROCHELLE mejias [facility] 2021-10-18 2021-10-18 Outpatient Paul JONES [facility] [id number] Univers 15:00:00 15:00:00 ROCHELLE [id number] [facility] 2021-10-18 2021-10-18 Outpatient R ROBERT [facility] [id number] Univers 15:00:00 15:00:00 ROCHELLE [facility] 2021-09-18 2021-09-18 Outpatient R [facility] [id number] Univers 15:45:00 15:45:00 [id number] [facility] 2021-09-17 2021-09-17 [facility] [id number] Univers 11:20:00 11:20:00 LORETA [id number] [facility] 2021-09-17 2021-09-17 [facility] [id number] Univers 11:20:00 11:20:00 [facility] 2021-09-16 2021-09-16 Emergency X JUHINEW [facility] ERT [id number] Univers 11:54:00 16:20:00 MARY [facility] 2021-09-16 2021-09-16 Emergency [facility] 1.2.840.114 [id number] Univers 11:54:00 16:20:00 Mary TS[facility].1.13.10 [facility] 4.2.7.2.686 [facility] [phone] [place] [address] Branch 2021-09-16 2021-09-16 Outpatient R BROOKS BARKER [facility] [id number] Univers 11:30:00 11:30:00 [facility]KS [facility]ER [id number] [facility] 2021-09-16 2021-09-16 Outpatient R BROOKS BARKER [facility] [id number] Univers 11:30:00 11:30:00 BROOKS BARKER [facility] 2021-09-13 2021-09-13 Telephone [facility] 1.2.840.114 [id number] Univers 00:00:00 00:00:[address] [facility] HEALTH 350.1.13.10 i [place] [phone] [address] OFFICE BUILDING 2021-09-09 2021-09-09 Emergency X Jairo JORDAN [facility] ERT [id number] Univers 11:03:00 17:12:00 ity of [facility] 2021-09-09 2021-09-09 Emergency Jairo Jordan [facility] 1.2.840.114 [id number] Univers 11:03:00 17:12:00 Janny TSANG 350.1.13.10 i ty of [place] 4.2.7.2.686 [phone] [address] 2021-09-09 2021-09-09 Telephone Nicolás LORENZO 1.2.840.114 [id number] Univers 00:00:00 00:00:00 Francesca, PEDIATRIC 350.1.13.10 [place] of [place] [id number] [facility] PRIMARY 0[address] CARE CLINIC 2021-09-07 2021-09-07 Emergency X JUHINEW [facility] ERT [id number] Univers 09:04:00 13:57:00 MRAY itblaire [facility] 2021-09-07 2021-09-07 Emergency [facility] 1.2.840.114 [id number] Univers 09:04:00 13:57:00 Mary TSANG 350.1.13.10 ity of [place] 4.2.7.2.686 [facility] [phone] [address] 2021-09-07 2021-09-07 Nurse EDMUND Degroot 1.2.840.114 [id number] Univers 00:00:00 00:00:00 Triage Macy WRIGHT 350.1.13.10 it y of [facility] 4.2.7.2.686 [place] as [phone] [address] 2021-09-06 2021-09-06 Telephone Jacky [facility] 1.2.840.114 [id number] Univers 00:00:00 00:00:00 Gino Farmer HEALTH 350.1.13.10 i ty [place] [id number] [facility] [address] OFFICE BUILDING 2021-09-06 2021-09-06 Telephone Jones, [facility] 1.2.840.114 [id number] Univers 00:00:00 00:00:00 Rochelle A HEALTH 350.1.13.10 ity of [place] 4.2.7.2.686 Alexander as YOUSIF?BLEA [phone] [place] wagner SALGUERO [address] MEDICAL OFFICE BUILDING 2021-09-05 2021-09-05 Outpatient R ROBERT [facility] [id number] Univers 13:00:00 13:58:09 ROCHELLE ity of [facility] 2021-09-04 2021-09-04 Transition SRIDHAR Seth 1.2.840.114 [id number] Univers 00:00:00 00:00:00 of Care Heavenly B [place] 350.1.13.10 it [place] [id number] [facility] [address] 2021-09-03 2021-09-03 Transition SRIDHAR Seth 1.2.840.114 [id number] Univers 00:00:00 00:00:00 of Care Heavenly B [place] 350.1.13.10 [place] [phone] [facility] 403 Branch 2021-08-28 2021-09-02 [facility] Mac Miranda [facility] 1.2.840.1 [id number] Univers 17:20:00 13:00:00 Encounter Izaiah Hobbs 350.1.13.10 ity of Goran Mccormack [place] 4.2.7.2.686 [place] [phone] [facility] 113 Branch (CLC) 2021-08-31 2021-08-31 Telephone EDMUND Morgan 1.2.848.918 [id number] Univers 00:00:00 00:00:00 Israel WRIGHT 350.1.13.10 it y of HOSPITAL 4.2.7.2.686 [place] as [phone] [address] 2021-08-28 2021-08-28 Office Mj [facility] 1.2.840.114 [id number] Univers 16:30:00 17:14:19 Visit Brooks STANG 350.1.13.10 [facility] 4.2.7.2.686 [place] [phone] [place] [address] 2021-08-28 2021-08-28 Outpatient R BROOKS BARKER [facility] [id number] Univers 16:30:00 17:14:19 MJNUARIS [facility] 2021-08-28 2021-08-28 Outpatient R BROOKS BARKER [facility] [id number] Univers 16:30:00 17:14:19 MJNU MURRAYARIS [facility] 2021-08-22 2021-08-26 Inpatient X JORDIN [facility] [id number] Univers 22:10:00 10:50:00 MOHIT [facility] 2021-08-23 2021-08-23 [facility] [id number] Univers 08:50:00 08:50:00 JOSELUIS [facility] 2021-08-13 2021-08-16 Inpatient X ERICKA [facility] [id number] Univers 18:42:00 11:20:00 SADE [facility] 2021-08-14 2021-08-14 Outpatient R KIKE [facility] [id number] Univers 14:45:00 14:45:00 ROBERTO [facility] 2021-08-12 2021-08-12 Outpatient R BROOKS BARKER [facility] [id number] Univers 15:00:00 15:56:28 BROOKS BARKER [facility] 2021-08-04 2021-08-06 Inpatient X AUTUMN [facility] [id number] Univers 16:37:00 15:45:00 CRISS [facility] 2021-08-02 2021-08-02 Outpatient R CAPRICE [facility] [id number] Univers 09:50:00 09:45:35 JOSELUIS mejias [facility] 2021-07-30 2021-07-30 Emergency X SINGER [facility] ERT [id number] Univers 07:42:00 08:48:00 PIA mejias [facility] 2021-07-24 2021-07-24 Emergency X SINGER [facility] ERT [id number] Univers 16:12:00 16:59:00 PIA blaire [facility] 2021-07-19 2021-07-19 Outpatient R ITURRIZAGA- [facility] [id number] Univers 14:30:00 14:31:55 FRANCESCArandell [facility] 2021-07-17 2021-07-18 Emergency X TONY [facility] ERT [id number] Univers 22:49:00 00:38:00 LUIS ANGEL [facility] 2021-07-14 2021-07-16 Outpatient X ERICKA [facility] DIONISIO [id number] Univers 18:17:00 10:24:00 SADE [facility] 2021-07-09 2021-07-09 [facility] [id number] Univers 14:00:00 14:00:00 FRANCESCA randell [facility] 2021-07-08 2021-07-08 Emergency X JUHI [facility] ERT [id number] Univers 10:08:00 14:13:00 MARY [facility] 2021-07-01 2021-07-02 Outpatient R ROBERT [facility] [id number] Univers 15:40:00 08:32:30 ROCHELLE randell [facility] 2021-06-25 2021-06-25 Outpatient [facility] [id number] Univers 14:00:00 14:22:55 FRANCESCA randell [facility] 2021-06-18 2021-06-18 Outpatient [facility] [id number] Univers 15:00:00 15:00:00 FRANCESCA randell [facility] 2021-06-14 2021-06-14 Outpatient R ROBERT [facility] [id number] Univers 15:20:00 15:20:00 ROCHELLE itblaire [facility] 2021-06-13 2021-06-13 [facility] [id number] Univers 10:00:00 10:00:00 FRANCESCA, [id number] ity [facility] 2021-06-11 2021-06-11 Outpatient R [facility] [id number] Univers 09:40:00 09:40:00 ity [facility] 2021-06-07 2021-06-09 Outpatient X DAYDAY DALAL [facility] [id number] Univers 23:27:00 13:00:00 ity [facility] 2021-06-06 2021-06-06 [facility] [id number] Univers 10:00:00 10:00:00 FRANCESCA [id number] itblaire [facility] 2021-06-04 2021-06-04 [facility] [id number] Univers 15:00:00 15:25:05 FRANCESCArandell WHALEY [facility] 2021-05-30 2021-05-30 Outpatient R [facility] [id number] Univers 10:00:00 10:00:00 FRANCESCArandell WHALEY [facility] 2021-05-22 2021-05-24 Inpatient [facility] [id number] Univers 13:49:00 15:38:00 FRANCESCArandell WHALEY [facility] 2021-05-23 2021-05-23 [facility] [id number] Univers 10:00:00 10:00:00 FRANCESCArandell WHALEY [facility] 2021-05-21 2021-05-21 Outpatient [facility] [id number] Univers 13:30:00 13:54:00 FRANCESCArandell WHALEY [facility] 2021-05-16 2021-05-16 [facility] [id number] Univers 10:00:00 10:00:00 randell MAKI [facility] 2021-05-09 2021-05-09 [facility] [id number] Univers 10:30:00 10:30:00 randell MAKI [facility] 2021-05-02 2021-05-02 [facility] [id number] Univers 10:00:00 10:00:00 randell MAKI [facility] 2021-04-26 2021-04-26 Out[facility] [id number] Univers 14:00:00 14:53:04 randell MAKI [facility] 2021-04-16 2021-04-16 Out[facility] [id number] Univers 16:30:00 16:30:00 randell MAKI [facility] 2021-04-09 2021-04-09 Out[facility] [id number] Univers 14:30:00 14:54:06 randell MAKI [facility] 2021-03-11 2021-04-04 Inpatient X [facility] [id number] Univers 20:29:00 18:25:00 randell MAKI [facility] 2021-03-04 2021-03-04 Outpatient R IVANA [facility] [id number] Univers 07:30:00 07:30:00 ADRIANNA blaire [facility] 2021-02-28 2021-03-01 Inpatient EM Ahmed, HCAPM INTE.02 [id number] [facility] 16:19:00 15:10:00 [facility] [id number] [facility] 2021-02-28 2021-02-28 Outpatient Ahmed, HCACL LABO [id number] [facility] 08:44:00 08:44:00 [facility] [id number] [facility] 2021-02-27 2021-02-27 Inpatient EM Ahmed, HCAPM INTE.02 [id number] [facility] 12:18:00 12:17:00 [facility] [id number] [facility] 2021-02-27 2021-02-27 Transition Sridhar Seth 1.2.840.114 [id number] 00:00:00 00:00:00 of Care [place]ly [place] 350.1.13.10 [place] 4.2.7.2.686 [id number] 403 2021-02-26 2021-02-26 Transition Sridhar Seth 1.2.840.114 [id number] 00:00:00 00:00:00 of Care Heavenly [place] 350.1.13.10 [place] 4.2.7.2.686 [id number] 403 2021-02-25 2021-02-25 Reftrini [facility] 1.2.840.114 [id number] 00:00:00 00:00:00 Ayush Tsang 350.1.13.10 [place] 4.2.7.2.686 Professio [phone] nal 092 [facility] 2021-02-22 2021-02-24 Emergency [facility] 1.2.853.374 [id number] 20:27:00 15:41:00 Doris Tsang 350.1.13.10 [place] 4.2.7.2.686 [place] [id number] 2021-02-13 2021-02-13 Patient [facility] 1.2.840.114 [id number] 00:00:00 00:00:00 Outreach Nikole Saba Lenore 350.1.13.10 [place] 4.2.7.2.686 Professio [id number] nal 231 [facility] 2021-02-04 2021-02-06 Inpatient EM Akram, HCACL INTE.02 [id number] [facility] 20:15:00 16:26:00 Precious Shore705 [facility] 2021-02-04 2021-02-04 Emergency EM Rouse, HCAPM PAOLA [id number] [facility] 12:54:00 19:20:00 Isac [id number] [facility] 2021-01-23 2021-01-23 Outpatient R WILBERTO [facility] [id number] Univers 15:00:00 15:00:00 SENDIL [facility] 2021-01-08 2021-01-08 Outpatient R ANDREW MANCUSO [facility] [id number] Univers 19:30:00 19:30:00 ANDREW MANCUSO [facility] 2021-01-03 2021-01-07 Inpatient EM Tyler EVERPM INTE.02 [id number] [facility] 15:04:00 14:00:00 [facility] [id number] [facility] 2021-01-03 2021-01-03 Outpatient Tyler EVERCL LABO [id number] [facility] 21:53:00 21:53:00 [facility] [id number] [facility] 2021-01-02 2021-01-02 Outpatient R AMADO [facility] [id number] Univers 16:20:00 16:20:00 MARIA E [facility] 2021-01-01 2021-01-01 Outpatient R ARVIND [facility] [id number] Univers 08:00:00 09:20:28 MILAN mejias o darian [facility] 2020-12-28 2020-12-28 Outpatient R WILBERTO [facility] [id number] Univers 11:00:00 [facility]18[facility] 2020-[facility] 2020-12-27 Emergency X , [facility] ERT [id number] Univers 13:27:00 14:19:00 PIA [facility] 2020-12-26 2020-12-26 Outpatient R ARVIND [facility] [id number] Univers 13:30:00 13:30:00 MILAN mejias o darian [facility] 2020-12-14 2020-12-14 Outpatient R [facility] [id number] Univers 15:15:00 15:15:00 [facility] 2020-12-11 2020-12-11 Outpatient R ELENI [facility] [id number] Univers 10:40:00 11:23:17 KELLY [facility] 2020-12-07 2020-12-07 Outpatient Paul LADD [facility] [id number] Univers 10:00:00 10:19:12 SENDIL [facility] 2020-11-30 2020-12-05 Inpatient EVER [place] [id number] [facility] 16:20:00 11:58:00 Benoit [id number] [facility] 2020-11-29 2020-11-29 Outpatient R ALAINA [facility] [id number] Univers 14:00:00 14:00:00 , EDMUND [facility] 2020-11-27 2020-11-27 Outpatient R BARTOLOME [facility] [id number] Univers 19:30:00 19:30:00 BARTOLOME NATALIEDIRK [facility] 2020-11-14 2020-11-14 Outpatient Paul FISCHER [facility] [id number] Univers 00:00:00 00:00:00 MARIA E [facility] 2020-11-02 2020-11-02 Outpatient AYUSH DUNAWAY [facility] [id number] Univers 08:40:00 08:40:00 AYUSH BEE [facility] 2020-10-31 2020-10-31 Outpatient Paul LADD [facility] [id number] Univers 10:00:00 10:27:10 [facility] 2020-10-02 2020-10-02 Outpatient Paul LADD [facility] [id number] Univers 10:00:00 11:14:31 [facility] 2020-09-11 2020-09-11 Outpatient Paul KNOWLES [facility] [id number] Univers 13:00:00 13:46:40 [facility] 2020-05-29 2020-06-02 Inpatient JOSÉ MIGUEL NERI [facility] 7508 05:06:00 14:30:00 [facility] l Results Test Description Test Time Test Comments Results Result Comments Source TROPONIN I 2021-09-16 21:38:39 Test Item Value Reference Range Interpretation Comme nts TROPONIN I (test code = 0.028 ng/mL See_Comment [Au tomated message] The 0202742560) system which ge nerated this result tra [...] to patient's use of biotin. Lab Interpretation Normal (test code = 24229-0) [facility] [id number] 18:53:44 Test Item Value Reference Interpretation Comments Range TROPONIN I (test 0.026 ng/mL See_Comment [Automated code = 6805501736) message] The system which generated this result [...] to patient's use of biotin. Lab Interpretation Normal (test code = 96092-2) [facility] [id number] 18:50:21 Test Item Value Reference Range Interpretation Comments NT-proBNP (test code 1970 pg/mL See_Comment H [Autom ated = 2490093502) message] The system which generated this result transmitted reference range : <=125. The reference range was not used to interpret this result as normal/abnormal . JACOB (test code = JACOB) Biotin has been reported to cause a negative bias, interpret results relative to patient's use of biotin. Lab Interpretation Abnormal (test code = 93968-1) [facility] METABOLIC PANEL (35140)2021-09-16 18:42:01 Test Item Value Reference Range Interpretation Comments NA (test code = 140 mmol/L 135-145 6943773300) K (test code = 4.4 mmol/L 3.5-5.0 7204490879) CL (test code = 110 mmol/L 98-108 H 3366005608) CO2 TOTAL (test code = 26 mmol/L 23-31 7894219598) AGAP (test code = 2-16 7106023755) BUN (test code = 26 mg/dL 7-23 H 6733089590) GLUCOSE (test code = 136 mg/dL 70-110 H 8828930998) CREATININE (test code = 1.35 mg/dL 0.60-1.25 H 7480370388) TOTAL BILI (test code = 0.7 mg/dL 0.1-1.1 0886885737) CALCIUM (test code = 8.4 mg/dL 8.6-10.6 L 7917690640) T PROTEIN (test code = 7.1 g/dL 6.3-8.2 3210511447) ALBUMIN (test code = 3.9 g/dL 3.5-5.0 7901655296) ALK PHOS (test code = 59 U/L 34-122 7569481809) ALTv (test code = 14 U/L 5-50 1742-6) AST(SGOT) (test code = 27 U/L 13-40 6722391641) eGFR (test code = mL/min/1.73m2 7426444546) JACOB (test code = JACOB) Association of [...] tests). Lab Interpretation Abnormal (test code = 89647-8) [facility]22-02-14 18:42:01 Test Item Value Reference Range Interpretation Comments MAGNESIUM (test code = 9169118031) 1.8 mg/dL 1.7-2.4 Lab Interpretation (test code = Normal 83663-1) [facility] WITH [id number] 18:34:58 Test Item Value Reference Range Interpretation Comments WBC (test code = See_Comment [Automated 8769-2) message] The sy stem which generated this result transmitted reference range : 4.20 - 10.70 10*3/?L. The reference range was not used to interpret this result as normal/abnormal . RBC (test code = See_Comment [Automated 125-4) message] The sy stem which generated this result transmitted reference range : 4.26 - 5.52 10*6/?L. The reference range was not used to interpret this result as normal/abnormal . HGB (test code = 12.7 g/dL 12.2-16.4 718-7) HCT (test code = 40.7 % 38.4-49.3 4544-3) MCV (test code = 81.2 fL 81.7-95.6 L 787-2) MCH (test code = 25.3 pg 26.1-32.7 L 785-6) MCHC (test code = 31.2 g/dL 31.2-35.0 786-4) RDW-SD (test code = 46.6 fL 38.5-51.6 89303-5) RDW-CV (test code = 15.9 % 12.1-15.4 H 788-0) PLT (test code = See_Comment [Automated 777-3) message] The sy stem which generated this result transmitted reference range : 150 - 328 10*3/ ?L. The reference r marino was not used to interpret this result as normal/abnormal . MPV (test code = 11.0 fL 9.8-13.0 28582-4) NRBC/100 WBC (test See_Comment [Automat ed code = 2453314229) message] The system which generated this result transmitted reference range : 0.0 - 10.0 /100 WBCs. The refer ence range was not u sed to interpret th is result as normal/abnormal . NRBC x10^3 (test code <0.01 See_Comment [Auto mated = 8451688903) message] The s ystem which generated this result transmitted reference range : 10*3/?L. The reference range was not used to interpret this result as normal/abnormal . GRAN MAT (NEUT) % 51.1 % (test code = 770-8) IMM GRAN % (test code 0.20 % = 9085142214) LYMPH % (test code = 37.0 % 736-9) MONO % (test code = 8.4 % 5905-5) EOS % (test code = 2.9 % 713-8) BASO % (test code = 0.4 % 706-2) GRAN MAT x10^3(ANC) 2.48 10*3/uL 1.99-6.95 (test code = 0438972640) IMM GRAN x10^3 (test <0.03 0.00-0.06 code = 0364243295) LYMPH x10^3 (test code 1.80 10*3/uL 1.09-3.23 = 731-0) MONO x10^3 (test code 0.41 10*3/uL 0.36-1.02 = 742-7) EOS x10^3 (test code = 0.14 10*3/uL 0.06-0.53 711-2) BASO x10^3 (test code <0.03 0.01-0.09 = 704-7) Lab Interpretation Abnormal (test code = 25956-8) [facility] [id number] 19:35:42 Test Item Value Reference Interpretation Comments Range TROPONIN I (test 0.038 ng/mL See_Comment H [Automated code = 2155965219) message] The system which generated this result [...] biotin. Lab Interpretation Abnormal (test code = 39485-9) [facility] [id number] 18:08:05 Test Item Value Reference Interpretation Comments Range TROPONIN I (test 0.038 ng/mL See_Comment H [Automated code = 8821621154) message] The system which generated this result [...] biotin. Lab Interpretation Abnormal (test code = 52517-3) [id number] 18:04:47 Test Item Value Reference Range Interpretation Comments NT-proBNP (test code 3720 pg/mL See_Comment H [Autom ated = [id number]) message] The system which generated this result transmitted reference range : <=125. The reference range was not used to interpret this result as normal/abnormal . JACOB (test code = JACOB) Biotin has been reported to cause a negative bias, interpret results relative to patient's use of biotin. Lab Interpretation Abnormal (test code = 32709-7) [facility] (74409)2021-09-09 17:56:26 Test Item Value Reference Range Interpretation Comments NA (test code = 140 mmol/L 135-145 [id number]) K (test code = 4.0 mmol/L 3.5-5.0 [id number]) CL (test code = 108 mmol/L 98-108 2912582041) CO2 TOTAL (test code 24 mmol/L 23-31 = [id number]) AGAP (test code = 2-16 [id number]) BUN (test code = 19 mg/dL 7-23 0532970208) GLUCOSE (test code = 107 mg/dL 70-110 5101039986) CREATININE (test code 1.22 mg/dL 0.60-1.25 = 7984618005) TOTAL BILI (test code 0.6 mg/dL 0.1-1.1 = 6871899074) CALCIUM (test code = 8.8 mg/dL 8.6-10.6 7293870231) T PROTEIN (test code 7.4 g/dL 6.3-8.2 = 6491915110) ALBUMIN (test code = 4.1 g/dL 3.5-5.0 9109460399) ALK PHOS (test code = 65 U/L 34-122 1170339538) ALTv (test code = 15 U/L 5-50 1742-6) AST(SGOT) (test code 27 U/L 13-40 = 9000888401) eGFR (test code = mL/min/1.73m2 2510614940) JACOB (test code = JACOB) Association of [...] or urine or abnormalities in imaging tests). [facility] 17:56:26 Test Item Value Reference Range Interpretation Comments MAGNESIUM (test code = 3609430893) 1.7 mg/dL 1.7-2.4 Lab Interpretation (test code = Normal 46512-6) [facility] WITH [id number] 17:51:42 Test Item Value Reference Range Interpretation Comments WBC (test code = See_Comment [Automated 5239-2) message] The sy stem which generated this result transmitted reference range : 4.20 - 10.70 10*3/?L. The reference range was not used to interpret this result as normal/abnormal . RBC (test code = See_Comment [Automated 121-5) message] The sy stem which generated this [...] RDW-SD (test code = 44.9 fL 38.5-51.6 37266-6) RDW-CV (test code = 15.7 % 12.1-15.4 H 788-0) PLT (test code = See_Comment [Automated 777-3) message] The sy stem which generated this result transmitted reference range : 150 - 328 10*3/ ?L. The reference r marino was not used to interpret this result as normal/abnormal . MPV (test code = 12.1 fL 9.8-13.0 55837-7) NRBC/100 WBC (test See_Comment [Automat ed code = 3408390042) message] The system which generated this result transmitted reference range : 0.0 - 10.0 /100 WBCs. The refer ence range was not u sed to interpret th is result as normal/abnormal . NRBC x10^3 (test code <0.01 See_Comment [Auto mated = 2497930523) message] The s ystem which generated this result transmitted reference range : 10*3/?L. The reference range was not used to interpret this result as normal/abnormal . GRAN MAT (NEUT) % 46.6 % (test code = 770-8) IMM GRAN % (test code 0.20 % = 3210149389) LYMPH % (test code = 40.2 % 736-9) MONO % (test code = 10.0 % 5905-5) EOS % (test code = 2.7 % 713-8) BASO % (test code = 0.3 % 706-2) GRAN MAT x10^3(ANC) 2.76 10*3/uL 1.99-6.95 (test code = 1993871015) IMM GRAN x10^3 (test <0.03 0.00-0.06 code = 1191036766) LYMPH x10^3 (test code 2.38 10*3/uL 1.09-3.23 = 731-0) MONO x10^3 (test code 0.59 10*3/uL 0.36-1.02 = 742-7) EOS x10^3 (test code = 0.16 10*3/uL 0.06-0.53 711-2) BASO x10^3 (test code <0.03 0.01-0.09 = 704-7) Lab Interpretation Abnormal (test code = 17891-4) [facility] [id number] 18:17:35 Test Item Value Reference Interpretation Comments Range TROPONIN I (test 0.040 ng/mL See_Comment H [Automated code = 8893213902) message] The system which generated this result [...] biotin. Lab Interpretation Abnormal (test code = 18765-5) [facility] WITH [id number] 16:06:26 Test Item Value Reference Range Interpretation Comments WBC (test code = See_Comment [Automated 3790-2) message] The sy stem which generated this [...] RDW-SD (test code = 46.3 fL 38.5-51.6 85588-9) RDW-CV (test code = 15.6 % 12.1-15.4 H 788-0) PLT (test code = See_Comment [Automated 777-3) message] The sy stem which generated this result transmitted reference range : 150 - 328 10*3/ ?L. The reference r marino was not used to interpret this result as normal/abnormal . MPV (test code = 10.7 fL 9.8-13.0 41002-4) NRBC/100 WBC (test See_Comment [Automat ed code = 9453670158) message] The system which generated this result transmitted reference range : 0.0 - 10.0 /100 WBCs. The refer ence range was not u sed to interpret th is result as normal/abnormal . NRBC x10^3 (test code <0.01 See_Comment [Auto mated = 4218476956) message] The s ystem which generated this result transmitted reference range : 10*3/?L. The reference range was not used to interpret this result as normal/abnormal . GRAN MAT (NEUT) % 42.2 % (test code = 770-8) IMM GRAN % (test code 0.20 % = 7943119106) LYMPH % (test code = 42.3 % 736-9) MONO % (test code = 11.4 % 5905-5) EOS % (test code = 3.5 % 713-8) BASO % (test code = 0.4 % 706-2) GRAN MAT x10^3(ANC) 1.92 10*3/uL 1.99-6.95 L (test code = 5534419191) IMM GRAN x10^3 (test <0.03 0.00-0.06 code = 8424127821) LYMPH x10^3 (test code 1.93 10*3/uL 1.09-3.23 = 731-0) MONO x10^3 (test code 0.52 10*3/uL 0.36-1.02 = 742-7) EOS x10^3 (test code = 0.16 10*3/uL 0.06-0.53 711-2) BASO x10^3 (test code <0.03 0.01-0.09 = 704-7) REACT LYMPHS (test Moderate code = 5694253820) Lab Interpretation Abnormal (test code = 26114-6) [facility] [id number] 15:49:27 Test Item Value Reference Interpretation Comments Range TROPONIN I (test 0.040 ng/mL See_Comment H [Automated code = 2246852133) message] The system which generated this result [...] biotin. Lab Interpretation Abnormal (test code = 54995-1) [facility] [id number] 15:46:26 Test Item Value Reference Range Interpretation Comments NT-proBNP (test code 2580 pg/mL See_Comment H [Autom ated = 1956164687) message] The system which generated this result transmitted reference range : <=125. The reference range was not used to interpret this result as normal/abnormal . JACOB (test code = JACOB) Biotin has been reported to cause a negative bias, interpret results relative to patient's use of biotin. Lab Interpretation Abnormal (test code = 03422-1) [facility]-05 15:37:44 Test Item Value Reference Range Interpretation Comments MAGNESIUM (test code = 5938110168) 1.9 mg/dL 1.7-2.4 Lab Interpretation (test code = Normal 91994-9) [facility] METABOLIC PANEL (38416)2021-09-07 15:37:24 Test Item Value Reference Range Interpretation Comments NA (test code = 140 mmol/L 135-145 0780697457) K (test code = 3.8 mmol/L 3.5-5.0 5861482879) CL (test code = 107 mmol/L 98-108 4785241332) CO2 TOTAL (test code = 26 mmol/L 23-31 4295595736) AGAP (test code = 2-16 5824532543) BUN (test code = 26 mg/dL 7-23 H 6251263672) GLUCOSE (test code = 112 mg/dL 70-110 H 5699545073) CREATININE (test code = 1.28 mg/dL 0.60-1.25 H 9088530700) TOTAL BILI (test code = 0.5 mg/dL 0.1-1.6 0893837901) CALCIUM (test code = 8.7 mg/dL 8.6-10.6 1012441082) T PROTEIN (test code = 7.3 g/dL 6.3-8.2 7746937913) ALBUMIN (test code = 4.1 g/dL 3.5-5.0 4712481927) ALK PHOS (test code = 75 U/L 34-122 2861922280) ALTv (test code = 17 U/L 5-50 1742-6) AST(SGOT) (test code = 27 U/L 13-40 7079120779) eGFR (test code = mL/min/1.73m2 5167066508) JACOB (test code = JACOB) Association of [...] tests). Lab Interpretation Abnormal (test code = 04821-7) [facility]udaPROTHROMBIN TIME / [id number] 15:32:26 Test Item Value Reference Range Interpretation Comments PROTIME PATIENT (test See_Comment [Auto mated message] code = 5964-2) The system [employer] generated this result transmitted ref erence range: 12.0 - 1 4.7 Seconds. The re ference range was not u sed to interpret this result as normal/abnor mal. INR (test code = 6301-6) Nor mal INR <1.1; Warfarin Therap eutic range 2.0 to 3. 0 or 2.5 to 3.5, dep ending upon the indica tions. Lab Interpretation (test Normal code = 36511-1) [facility]uda[facility] (AUTOMATED)2021-09-07 15:18:03 Test Item Value Reference Range Interpretation Comments POCT GLU (test code = 4270358440) 137 mg/dL 70-110 H Lab Interpretation (test code = Abnormal 36679-7) [facility] (NA, K, CL, CO2, GLUCOSE, BUN, CREATININE, CA)2021-09-02 11:40:14 Test Item Value Reference Range Interpretation Comments NA (test code = 140 mmol/L 135-145 7124251507) K (test code = 4.0 mmol/L 3.5-5.0 8402923474) CL (test code = 102 mmol/L 98-108 5714731460) CO2 TOTAL (test code = 31 mmol/L 23-31 4716253254) AGAP (test code = 2-16 6841481400) BUN (test code = 30 mg/dL 7-23 H 8833036643) GLUCOSE (test code = 109 mg/dL 70-110 8287924105) CREATININE (test code = 1.43 mg/dL 0.60-1.25 H 2871573668) CALCIUM (test code = 9.0 mg/dL 8.6-10.6 9212110110) eGFR (test code = mL/min/1.73m2 9264872994) JACOB (test code = JACOB) Association of [...] tests). Lab Interpretation Abnormal (test code = 90675-7) [facility] METABOLIC PANEL (NA, K, CL, CO2, GLUCOSE, BUN, CREATININE, CA)2021-09-01 15:07:05 Test Item Value Reference Range Interpretation Comments NA (test code = 140 mmol/L 135-145 4482478548) K (test code = 3.8 mmol/L 3.5-5.0 7189021702) CL (test code = 101 mmol/L 98-108 2729141776) CO2 TOTAL (test code = 30 mmol/L 23-31 2851584031) AGAP (test code = 2-16 1971223044) BUN (test code = 27 mg/dL 7-23 H 6639674824) GLUCOSE (test code = 124 mg/dL 70-110 H 8919411132) CREATININE (test code = 1.36 mg/dL 0.60-1.25 H 9819160495) CALCIUM (test code = 8.9 mg/dL 8.6-10.6 9248064747) eGFR (test code = mL/min/1.73m2 5425104362) JACOB (test code = JACOB) Association of [...] tests). Lab Interpretation Abnormal (test code = 50059-5) [facility] METABOLIC PANEL (NA, K, CL, CO2, GLUCOSE, BUN, CREATININE, CA)2021-08-30 14:09:28 Test Item Value Reference Range Interpretation Comments NA (test code = 140 mmol/L 135-145 4189838476) K (test code = 3.7 mmol/L 3.5-5.0 Slight 7818883818) hemolysis CL (test code = 110 mmol/L 98-108 H 3401858036) CO2 TOTAL (test code 25 mmol/L 23-31 = 8901280100) AGAP (test code = 2-16 5240716013) BUN (test code = 25 mg/dL 7-23 H Slight 1395219314) hemolysis GLUCOSE (test code = 85 mg/dL 70-110 3751232715) CREATININE (test code 1.18 mg/dL 0.60-1.25 = 8381040806) CALCIUM (test code = 7.1 mg/dL 8.6-10.6 L 8615197619) eGFR (test code = mL/min/1.73m2 0611687213) JACOB (test code = JACOB) Association of [...] tests). Lab Interpretation Abnormal (test code = 80005-4) [facility] WITH [id number] 12:34:17 Test Item Value Reference Range Interpretation Comments WBC (test code = See_Comment [Automated 4584-2) message] The sy stem which generated this result transmitted reference range : 4.20 - 10.70 10*3/?L. The reference range was not used to interpret this result as normal/abnormal . RBC (test code = See_Comment [Automated 509-8) message] The sy stem which generated this [...] RDW-SD (test code = 49.7 fL 38.5-51.6 04865-9) RDW-CV (test code = 16.6 % 12.1-15.4 H 788-0) PLT (test code = See_Comment [Automated 277-3) message] The sy stem which generated this result transmitted reference range : 150 - 328 10*3/ ?L. The reference r marino was not used to interpret this result as normal/abnormal . MPV (test code = 11.8 fL 9.8-13.0 33029-8) NRBC/100 WBC (test See_Comment [Automat ed code = 2735502068) message] The system which generated this result transmitted reference range : 0.0 - 10.0 /100 WBCs. The refer ence range was not u sed to interpret th is result as normal/abnormal . NRBC x10^3 (test code <0.01 See_Comment [Auto mated = 8875424939) message] The s ystem which generated this result transmitted reference range : 10*3/?L. The reference range was not used to interpret this result as normal/abnormal . GRAN MAT (NEUT) % 45.4 % (test code = 770-8) IMM GRAN % (test code 0.20 % = 8455759514) LYMPH % (test code = 41.2 % 736-9) MONO % (test code = 10.4 % 5905-5) EOS % (test code = 2.6 % 713-8) BASO % (test code = 0.2 % 706-2) GRAN MAT x10^3(ANC) 1.91 10*3/uL 1.99-6.95 L (test code = 5769112948) IMM GRAN x10^3 (test <0.03 0.00-0.06 code = 6662378870) LYMPH x10^3 (test code 1.74 10*3/uL 1.09-3.23 = 731-0) MONO x10^3 (test code 0.44 10*3/uL 0.36-1.02 = 742-7) EOS x10^3 (test code = 0.11 10*3/uL 0.06-0.53 711-2) BASO x10^3 (test code <0.03 0.01-0.09 = 704-7) LG GRAN LYMPHS (test Rare Rare code = 5702848032) REACT LYMPHS (test Rare code = 8589922862) Lab Interpretation Abnormal (test code = 44815-7) [facility] WITH [id number] 11:13:49 Test Item Value Reference Range Interpretation [...] RDW-SD (test code = 49.3 fL 38.5-51.6 83729-4) RDW-CV (test code = 16.6 % 12.1-15.4 H 788-0) PLT (test code = See_Comment [Automated 777-3) message] The sy stem which generated this result transmitted reference range : 150 - 328 10*3/ ?L. The reference r marino was not used to interpret this result as normal/abnormal . MPV (test code = 10.9 fL 9.8-13.0 00892-0) NRBC/100 WBC (test See_Comment [Automat ed code = 3296936667) message] The system which generated this result transmitted reference range : 0.0 - 10.0 /100 WBCs. The refer ence range was not u sed to interpret th is result as normal/abnormal . NRBC x10^3 (test code <0.01 See_Comment [Auto mated = 2885443571) message] The s ystem which generated this result transmitted reference range : 10*3/?L. The reference range was not used to interpret this result as normal/abnormal . GRAN MAT (NEUT) % 32.6 % (test code = 770-8) IMM GRAN % (test code 0.00 % = 0477562562) LYMPH % (test code = 52.4 % 736-9) MONO % (test code = 12.3 % 5905-5) EOS % (test code = 2.5 % 713-8) BASO % (test code = 0.2 % 706-2) GRAN MAT x10^3(ANC) 1.43 10*3/uL 1.99-6.95 L (test code = 8089633006) IMM GRAN x10^3 (test <0.03 0.00-0.06 code = 8626611576) LYMPH x10^3 (test code 2.30 10*3/uL 1.09-3.23 = 731-0) MONO x10^3 (test code 0.54 10*3/uL 0.36-1.02 = 742-7) EOS x10^3 (test code = 0.11 10*3/uL 0.06-0.53 711-2) BASO x10^3 (test code <0.03 0.01-0.09 = 704-7) Lab Interpretation Abnormal (test code = 11632-5) [facility] METABOLIC PANEL (56156)2021-08-29 09:59:56 Test Item Value Reference Range Interpretation Comments NA (test code = 140 mmol/L 135-145 6821897649) K (test code = 3.8 mmol/L 3.5-5.0 6812450262) CL (test code = 105 mmol/L 98-108 2030419918) CO2 TOTAL (test code = 28 mmol/L 23-31 2992962144) AGAP (test code = 2-16 5355299250) BUN (test code = 27 mg/dL 7-23 H 4006609271) GLUCOSE (test code = 100 mg/dL 70-110 4028222417) CREATININE (test code = 1.44 mg/dL 0.60-1.25 H 3758856471) TOTAL BILI (test code = 0.5 mg/dL 0.1-1.8 3985543547) CALCIUM (test code = 8.4 mg/dL 8.6-10.6 L 6741739628) T PROTEIN (test code = 7.2 g/dL 6.3-8.2 2872396095) ALBUMIN (test code = 3.8 g/dL 3.5-5.0 8688093783) ALK PHOS (test code = 48 U/L 34-122 1732925772) ALTv (test code = 19 U/L 5-50 1742-6) AST(SGOT) (test code = 28 U/L 13-40 0708688268) eGFR (test code = mL/min/1.73m2 8759554002) JACOB (test code = JACOB) Association of [...] tests). Lab Interpretation Abnormal (test code = 59960-0) [facility]2022-01-27 09:59:56 Test Item Value Reference Range Interpretation Comments MAGNESIUM (test code = 3912170808) 1.9 mg/dL 1.7-2.4 Lab Interpretation (test code = Normal 75356-7) [facility]udaTHYROID STIMULATING [id number] 07:19:15 Test Item Value Reference Range Interpretation Comments TSH (test code = See_Comment [Automated message] 4652076790) The system [employer] generated this result transmitted ref erence range: 0.45 - 4 .70 mIU/L. The refe rence range was not u sed to interpret this result as normal/abnor mal. Lab Interpretation (test Normal code = 74299-7) [facility]udaTROPONIN [id number] 07:00:54 Test Item Value Reference Interpretation Comments Range TROPONIN I (test 0.057 ng/mL See_Comment H [Automated code = 4996600166) message] The system which generated this result [...] biotin. Lab Interpretation Abnormal (test code = 25374-7) [facility] BudaCK (CREATINE KINASE) + [id number] 07:00:54 Test Item Value Reference Range Interpretation Comments CK (test code = 375 U/L 33-194 H 4500631318) CK-MB (test code = 1.52 ng/mL See_Comment [Automat ed 4965672968) message] The system which generated this result transmitted reference range : <=3.50. The reference range was not used to interpret this result as normal/abnormal . CKMB INDEX (test code 0.4 % 0.0-2.5 = 6172826602) JACOB (test code = JACOB) Biotin has been reported to cause a negative bias, interpret results relative to patient's use of biotin. Lab Interpretation Abnormal (test code = 56556-0) [facility]uda[facility]AUTOMATED)2021-08-29 05:51:28 Test Item Value Reference Range Interpretation Comments POCT GLU (test code = 2722332053) 87 mg/dL 70-110 Lab Interpretation (test code = Normal 56142-0) [facility] [id number] 05:31:36 Test Item Value Reference Interpretation Comments Range D-DIMER (test code = See_Comment H [Autom ated 4102809985) message] The system which generated this result [...] diagnosis. Lab Interpretation Abnormal (test code = 10068-0) [facility]udaTR[facility] [id number] 00:02:13 Test Item Value Reference Interpretation Comments Range TROPONIN I (test 0.047 ng/mL See_Comment H [Automated code = 2111970024) message] The system which generated this result [...] biotin. Lab Interpretation Abnormal (test code = 16328-8) [facility]udaN-TERMINAL [id number] 23:58:52 Test Item Value Reference Range Interpretation Comments NT-proBNP (test code 5120 pg/mL See_Comment H [Autom ated = 7421302224) message] The system which generated this result transmitted reference range : <=125. The reference range was not used to interpret this result as normal/abnormal . JACOB (test code = JACOB) Biotin has been reported to cause a negative bias, interpret results relative to patient's use of biotin. Lab Interpretation Abnormal (test code = 38326-9) [facility]udaACTIVATED PARTIAL THRMPLAS [id number] 23:50:31 Test Item Value Reference Range Interpretation Comments APTT Patient (test See_Comment [Automat ed code = 3173-2) message] The system which generated this result transmitted reference range : 23 - 38 Seconds . The reference range was not used to interpr et this result as normal/abnormal . JACOB (test code = JACOB) The [facility] patient population mean normal value for aPTT is 30 seconds. Lab Interpretation Normal (test code = 91340-2) [facility]udaCOMP. METABOLIC PANEL (96130)2021-08-28 23:50:31 Test Item Value Reference Range Interpretation Comments NA (test code = 139 mmol/L 135-145 1601072756) K (test code = 4.1 mmol/L 3.5-5.0 6905864029) CL (test code = 104 mmol/L 98-108 6719390500) CO2 TOTAL (test code = 28 mmol/L 23-31 8467763274) AGAP (test code = 2-16 0831550722) BUN (test code = 24 mg/dL 7-23 H 5977907284) GLUCOSE (test code = 86 mg/dL 70-110 3299086124) CREATININE (test code = 1.52 mg/dL 0.60-1.25 H 5565171818) TOTAL BILI (test code = 0.6 mg/dL 0.1-1.9 1022046479) CALCIUM (test code = 8.8 mg/dL 8.6-10.6 9994044489) T PROTEIN (test code = 7.5 g/dL 6.3-8.2 4452807530) ALBUMIN (test code = 4.2 g/dL 3.5-5.0 5769956225) ALK PHOS (test code = 63 U/L 34-122 9842839405) ALTv (test code = 23 U/L 5-50 1742-6) AST(SGOT) (test code = 35 U/L 13-40 3082568696) eGFR (test code = mL/min/1.73m2 8302704027) JACOB (test code = JACOB) Association of [...] tests). Lab Interpretation Abnormal (test code = 02034-8) [facility] BudaPROTHROMBIN TIME / [id number] 23:48:29 Test Item Value Reference Range Interpretation [...] tions. Lab Interpretation (test Normal code = 24104-7) [facility] WITH [id number] 23:43:51 Test Item Value Reference Range Interpretation Comments WBC (test code = See_Comment [Automated 6390-2) message] The sy stem which generated this [...] RDW-SD (test code = 47.4 fL 38.5-51.6 86005-2) RDW-CV (test code = 16.3 % 12.1-15.4 H 788-0) PLT (test code = See_Comment [Automated 777-3) message] The sy stem which generated this result transmitted reference range : 150 - 328 10*3/ ?L. The reference r marino was not used to interpret this result as normal/abnormal . MPV (test code = 11.1 fL 9.8-13.0 04767-0) NRBC/100 WBC (test See_Comment [Automat ed code = 1094800322) message] The system which generated this result transmitted reference range : 0.0 - 10.0 /100 WBCs. The refer ence range was not u sed to interpret th is result as normal/abnormal . NRBC x10^3 (test code <0.01 See_Comment [Auto mated = 4138772584) message] The s ystem which generated this result transmitted reference range : 10*3/?L. The reference range was not used to interpret this result as normal/abnormal . GRAN MAT (NEUT) % 44.6 % (test code = 770-8) IMM GRAN % (test code 0.30 % = 1813186718) LYMPH % (test code = 39.1 % 736-9) MONO % (test code = 14.1 % 5905-5) EOS % (test code = 1.6 % 713-8) BASO % (test code = 0.3 % 706-2) GRAN MAT x10^3(ANC) 2.76 10*3/uL 1.99-6.95 (test code = 3829066418) IMM GRAN x10^3 (test <0.03 0.00-0.06 code = 6436787495) LYMPH x10^3 (test code 2.42 10*3/uL 1.09-3.23 = 731-0) MONO x10^3 (test code 0.87 10*3/uL 0.36-1.02 = 742-7) EOS x10^3 (test code = 0.10 10*3/uL 0.06-0.53 711-2) BASO x10^3 (test code <0.03 0.01-0.09 = 704-7) Lab Interpretation Abnormal (test code = 97500-3) [facility]uda[facility]UCO[facility] BED[facility] [id number] 11:27:00 Test Item Value Reference Range Interpretation Comments GLUCOSE BEDSIDE TESTING (test code 109 mg/dL 70-110 N = GLUBED) BASIC METABOLIC [id number] 08:09:00 Test Item Value Reference Range Interpretation [...] CA) 9.5 MG/DL 8.5-10.1 N GLUCOSE BEDSIDE [id number] 07:15:00 Test Item Value Reference Range Interpretation Comments GLUCOSE BEDSIDE TESTING (test code 102 mg/dL 70-110 N = GLUBED) GLUCOSE BEDSIDE [id number] 23:04:00 Test Item Value Reference Range Interpretation Comments GLUCOSE BEDSIDE TESTING (test code 127 mg/dL 70-110 H = GLUBED) GLUCOSE BEDSIDE [id number] 20:03:00 Test Item Value Reference Range Interpretation Comments GLUCOSE BEDSIDE TESTING (test code 149 mg/dL 70-110 H = GLUBED) GLUCOSE BEDSIDE [id number] 16:55:00 Test Item Value Reference Range Interpretation Comments GLUCOSE BEDSIDE TESTING (test code 110 mg/dL 70-110 N = GLUBED) GLUCOSE BEDSIDE [id number] 11:23:00 Test Item Value Reference Range Interpretation Comments GLUCOSE BEDSIDE TESTING (test code 173 mg/dL 70-110 H = GLUBED) GLUCOSE BEDSIDE [id number] 08:33:00 Test Item Value Reference Range Interpretation Comments GLUCOSE BEDSIDE TESTING (test code 107 mg/dL 70-110 N = GLUBED) DRUGS OF ABUSE SCREEN [id number] 06:11:00 Test Item Value Reference Range Interpretation [...] to interpret this result as normal/abnormal . [id number] 20:43:00 Test Item Value Reference Range Interpretation [...] Completed by Nursing: NO- CTA CHEST FOR [id number] 18:35:00 [facility] 1965 Sex: M Name: WILMER PARADA [facility] ED : 1965 Age/S: 55 / M [id number] [place] Unit #: [id number] Loc: [place] [address] Phys: Isac Rouse DO Acct: [id number] Dis Date: Status: REG ER PHONE #: [phone] Exam Date: 02/27/2021 1800 FAX #: Reason: chest pain, elevated ddimer EXAMS: CPT: [id number] [place] [address] Location of dictation: B2 CTA of the [...] 1 Signed Report (CONTINUED) Name: WILMER PARADA [facility] ED : 1965 Age/S: 55 / M [id number] Unit #: [id number] Loc: [place] [address] Phys: Isac Rouse DO Acct: [id number] Dis Date: Status: REG ER PHONE #: [phone] Exam Date: 02/27/2021 1800 FAX #: Reason: chest pain, elevated ddimer EXAMS: CPT: [id number] [place] [address] <Continued> at 1835 Reported and signed by: April Marsh M.D. CC: Isac Rouse DO Technologist:Caitlin Slaughter, RT(R)(CT)(MRI) CTDI: DLP: Trnscb Date/Time: 02/27/2021 (183) tKEVIN Orig Print D/T: S: 02/27/2021 (1838) PAGE 2 Signed ReportCOVID 19 INHOUSE AG 2021-02-27 14:54:00 Test Item Value Reference Range Interpretation Comments COVID 19 INHOUSE AG NEGATIVE Negative Per manu facturer, (test code = negative result s should [id number]) be treated aspr esumptive and, if inconsi [...] nicalsigns and symptoms co nsistent with COVID-19. [id number] 13:38:00 Test Item Value Reference Range Interpretation [...] APPROPRIATECLIN ICAL EUALUATIONS. - XR CHEST 1 [id number] 13:35:00 [facility] 1965 Sex: M Name: WILMER PARADA [facility] ED : 1965 Age/S: 55 / M [address] Unit #: [id number] Loc: [place] [address] Phys: Isac Rouse DO Acct: [id number] Dis Date: Status: REG ER PHONE #: [phone] Exam Date: 02/27/2021 1320 FAX #: Reason: chest pain EXAMS: CPT: [id number] XR CHEST 1 V 67142 Fluoro Time: DAP (Gy m2): Air Kerma [...] the chest with no acute findings. at 2099 Reported and signed by: April Marsh M.D. CC: Isac Davis PAGE 1 Signed Report Name: [facility]ILMER PARADA [facility] 1965 Age/S: 55/ M [address] Unit #: [id number] Loc: [place] [address] Phys: Isac Rouse DO Acct: [id number] Dis Date: Status: REG ER PHONE #: [phone] Exam Date: 02/27/2021 1320 FAX #: Reason: chest pain EXAMS: CPT: [id number] XR CHEST 1 V 54481 Fluoro Time:DAP (Gy m2): Air Kerma (mGy): <Continued> Technologist: Bandar Tirado RT(R)(CT) Trnscb Date/Time: 02/27/2021 (6239) tKEVIN Orig Print D/T: S: 02/27/2021 (4929) PAGE 2 Signed ReportBASIC METABOLIC [id number] 13:29:00 Test Item Value Reference Range Interpretation [...] CK) Completed by Nursing: NONT PRO-BRAIN NATRIURETIC [id number] 13:29:00 Test Item Value Reference Range Interpretation Comments NT PRO-BRAIN NATRIURETIC PEPTI 1727 PG/ML 0-100 H (test code = PROBNP) Completed by Nursing: [id number] 13:29:00 Test Item Value Reference Range Interpretation [...] yby method. 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 [facility] [id number] 08:13:00 Test Item Value Reference Range Interpretation Comments GLUBED (test code = 101 MG/DL 70-110 N Performe d by certified GLUBED) 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 [facility] [id number]%2021-02-06 07:50:00 Test Item Value Reference Range Interpretation Comments HGBA1C% (test code = HGBA1C%) 5.9 %A1C 4.8-6.0 N BASIC METABOLIC [id number] 07:33:00 Test Item Value Reference Range Interpretation [...] mg/dL 8.0-10.5 N CA) TSH REFLEX TO [id number] 07:33:00 Test Item Value Reference Range Interpretation Comments TSH REFLEX TO FT4 (test code = 0.50 IU/mL 0.42-5.47 N TSHREFLEX) BASIC METABOLIC [id number] 07:28:00 Test Item Value Reference Range Interpretation [...] mg/dL 8.0-10.5 N CA) TSH REFLEX TO [id number] 07:28:00 Test Item Value Reference Range Interpretation Comments TSH REFLEX TO FT4 (test code = IU/mL 0.42-5.47 TSHREFLEX) CBC W/AUTO [id number] 07:23:00 Test Item Value Reference Range Interpretation [...] DIFF REQUIRED (test code NO = MDIFF) [id number] 20:49:00 Test Item Value Reference Range Interpretation Comments GLUBED (test code = 129 MG/DL 70-110 H Performe d by certified GLUBED) 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 [facility] COMPREHENSIVE METABOLIC [id number] 04:33:00 Test Item Value Reference Range Interpretation [...] 0-100 H <100 (test code = LDL) [id number] -129 NEAR OPTIMAL/ABOVE [id number] [id number] 89 HIGH>RV=408 VE RY HIGH*Guidelines provided by the National [employer] terol [employer] m Adult Treatment Panel III CBC W/AUTO [id number] 04:22:00 Test Item Value Reference Range Interpretation [...] (test code NO = MDIFF) CBC W/AUTO [id number] 04:21:00 Test Item Value Reference Range Interpretation [...] MANUAL DIFF REQUIRED (test code = MDIFF) [id number] 00:46:00 Test Item Value Reference Range Interpretation [...] results may suzy y by method. LIPOPROTEIN [id number] 22:00:00 Test Item Value Reference Range Interpretation Comments LIPOPROTEIN LDL 166.8 mg/dL 0-100 H <100 OPT [id number] (test code = LDL) NEAR OPTI MAL/ABOVE [id number] 89 HIGH>YS=936 VE RY HIGH*Guidelines provided by the [facility] terol [facility] Adult Treatment Panel III [id number] 21:44:00 Test Item Value Reference Range Interpretation [...] titative results may suzy y by method. 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 UA RFLX MICR CULT IF [id number] 18:05:00 Test Item Value Reference Range Interpretation [...] Indication for culture: Dysuria/FrequencyDRUGS OF ABUSE SCREEN [id number] 18:05:00 Test Item Value Reference Range Interpretation [...] Indication for culture: Dysuria/FrequencyDRUGS OF ABUSE SCREEN [id number] 17:28:00 Test Item Value Reference Range Interpretation Comments URN COCAINE (test code = SCcutoff See_Comment [A utomated message] COCAURN) The system [employer] generated this result transmit breanne reference range [...] See_Comment [A utomated message] OPIATURN) The system [employer] generated this result transmit breanne reference range [...] [A utomated message] = METHAURN) The system [employer] generated this result transmit breanne reference range [...] Indication for culture: Dysuria/FrequencyDRUGS OF ABUSE SCREEN [id number] 17:23:00 Test Item Value Reference Range Interpretation Comments URN COCAINE (test code = SCcutoff See_Comment [A utomated message] COCAURN) The system [facility] h generated this result transmit breanne [...] See_Comment [A utomated message] OPIATURN) The system [employer] generated this result transmit breanne reference range [...] [A utomated message] = METHAURN) The system [employer] generated this result transmit breanne reference range : <300 NG/ML. The reference range was not used to interpret this result as normal/abnormal . Indication for culture: Dysuria/Frequency- CTA CHEST FOR [id number] 16:11:00[facility] : 1965 Sex: M Name: WILMER PARADA [facility] ED : 1965 Age/S: 55 / M [address] Unit #: [id number] Loc: [place] [address] Phys: Isac Rouse DO Acct: [id number] Dis Date: Status: REG ER PHONE #: [phone] Exam Date: 02/04/2021 0405 FAX #: Reason: chest pain EXAMS: CPT: [id number] [place] [address] EXAM: - CTA CHEST FOR PE LOCATION: [...] PARADA : 1965 Age/S: 55 / M [address] Unit #: [id number] Loc: [place] [address] Phys: RouseIsac Acct: [id number] Dis Date: Status: REG ER PHONE #: [phone] Exam Date: 02/04/2021 154 FAX #: Reason: chest pain EXAMS: CPT: [id number] [place] [address] <Continued> BONES: No acute osseous findings. Mild thoracic texture scoliosis. IMPRESSION: 1. No pulmonary embolism. No acute findings throughout the lungs. 2. Borderline dilated heart chambers. at 1611 Reported and signed by:Luis Rogers D.O. CC: Isac Rouse DO; Afua DARNELL Technologist:Carmen Ruggiero, RT(R) CTDI: DLP: Trnscb Date/Time: 02/04/2021 (1610) VikramJW22 Orig Print D/T: S: 02/04/2021 (6695) PAGE 2 Signed ReportD-DIMER 2021-02-04 14:30:00 Test Item Value Reference Range Interpretation Comments D-DIMER (test code = DDIMER) 979 ng/mLFEU 215-500 HH BASIC METABOLIC [id number] 14:03:00 Test Item Value Reference Range Interpretation [...] Unit/L 26-192 H CK) Completed by Nursing: [id number] 14:03:00 Test Item Value Reference Range Interpretation [...] method. Completed by Nursing: NOCOVID 19 INHOUSE [id number] 13:50:00 Test Item Value Reference Range Interpretation Comments COVID 19 INHOUSE AG NEGATIVE Negative Per manu facturer, (test code = negative result s should [id number]) be treated aspr esumptive and, if inconsi [...] nsistent with COVID-19. - XR CHEST 1 [id number] 13:44:00 [facility] : 1965 Sex: M Name: WILMER PARADA [facility] ED : 1965 Age/S: 55 / M [address] Unit #: [id number] Loc: [place] [address] Phys: RouseIsac Acct: [id number] Dis Date: Status: PRE ER PHONE #: [phone] Exam Date: 02/04/2021 1326 FAX #: Reason: chest pain EXAMS: CPT: [id number] XR CHEST 1 V 98725 Fluoro Time: DAP (Gy m2): Air Kerma [...] PARADA : 1965 Age/S: 55 / M [address] Unit #: [id number] Loc: [place] [address] Phys: Isac Rouse DO Acct: [id number] Dis Date: Status: PRE ER PHONE #: [phone] Exam Date: 02/04/2021 1326 FAX #: Reason: chest pain EXAMS: CPT: [id number] XR CHEST 1 V 43534 Fluoro Time: DAP (Gy m2): Air Kerma (mGy): <Continued> Technologist: Carmen Ruggiero RT(R) Trnscb Date/Time: 02/04/2021 (0013) tANGELIQUERK5 Orig Print D/T: S: 02/04/2021 (1183) PAGE 2 Signed ReportCBC W/O [id number] 13:36:00 Test Item Value Reference Range Interpretation [...] 10.90 fL 7.0-9.6 H MPV) BASIC METABOLIC [id number] 12:58:00 Test Item Value Reference Range Interpretation [...] CA) 9.0 MG/DL 8.5-10.1 N CBC W/AUTO [id number] 12:51:00 Test Item Value Reference Range Interpretation [...] LIPOPROTEIN LDL 119 MG/DL 0-129 N <100 KCAPGXC031 - (test code = LDL) 129 CELI R OPTIMAL/ABOVE [id number] - 15 9 GVHYIMLEVQ997 - 189 HIGH>OR= 190 VERY HIGHNOTE THAT G UIDELINES ARE PROVIDED BY NATIONAL CHOLESTEROLEDUC ATION PROGRAM ADULT T REATMENT PANEL III LDL/HDL (test code 3.05 Ratio See_Comment N [Automat ed message] The = LDL/HDL) system which ge nerated this result tra nsmitted reference range : 1.48-3.22 Avg. The reference range was not used to interpr et this result as normal/abnormal . GLYCOSYLATED HEMOGLOBIN [id number] 12:24:00 Test Item Value Reference Range Interpretation Comments GLYCOSYLATED HEMOGLOBIN (HA1C) 5.8 % A1C 0.0-5.7 H (test code = GLYHGB) ESTIMATED AVERAGE GLUCOSE (test 120 MG/DLest code = EAG) GLUCOSE BEDSIDE [id number] 12:05:00 Test Item Value Reference Range Interpretation Comments GLUCOSE BEDSIDE TESTING (test code 151 mg/dL 70-110 H = GLUBED) - XR CHEST 1 [id number] 11:05:00 [facility] : 1965 Sex: M Name: WILMER PARADA [facility] ED : 1965 Age/S: 55 / M [address] Unit #: [id number] Loc: [place] [address] Phys: Rolando Napier Acct: [id number] Dis Date: Status: ADM IN PHONE #: [phone] Exam Date: 01/07/2021 1050 FAX #: Reason: Cough EXAMS: CPT: [id number] XR CHEST 1 V 88459 Fluoro Time: DAP (Gy m2): Air Kerma [...] PARADA : 1965 Age/S: 55 / M [address] Unit #: [id number] Loc: [place] [address] Phys: Shea Napier Acct: [id number] Dis Date: Status: ADM IN PHONE #: [phone] Exam Date: 01/07/2021 1050 FAX #: Reason: Cough EXAMS: CPT: [id number] XR CHEST 1 V 82363 Fluoro Time: DAP (Gy m2): Air Kerma (mGy): <Continued> Technologist: Jonna Ramirez RT(R)(MR) Trnscb Date/Time: 01/07/2021 (1105) tANGELIQUEPE1 Orig Print D/T: S: 01/07/2021 (1108) PAGE 2 Signed ReportGLUCOSE BEDSIDE [id number] 08:05:00 Test Item Value Reference Range Interpretation Comments GLUCOSE BEDSIDE TESTING (test code 105 mg/dL 70-110 N = GLUBED) GLUCOSE BEDSIDE [id number] 21:27:00 Test Item Value Reference Range Interpretation Comments GLUCOSE BEDSIDE TESTING (test code 100 mg/dL 70-110 N = GLUBED) GLUCOSE BEDSIDE [id number] 16:40:00 Test Item Value Reference Range Interpretation Comments GLUCOSE BEDSIDE TESTING (test code = 89 mg/dL 70-110 N GLUBED) GLUCOSE BEDSIDE [id number] 12:10:00 Test Item Value Reference Range Interpretation Comments GLUCOSE BEDSIDE TESTING (test code = 94 mg/dL 70-110 N GLUBED) GLUCOSE BEDSIDE [id number] 07:51:00 Test Item Value Reference Range Interpretation Comments GLUCOSE BEDSIDE TESTING (test code 102 mg/dL 70-110 N = GLUBED) GLUCOSE BEDSIDE [id number] 20:30:00 Test Item Value Reference Range Interpretation Comments GLUCOSE BEDSIDE TESTING (test code = 98 mg/dL 70-110 N GLUBED) GLUCOSE BEDSIDE [id number] 15:39:00 Test Item Value Reference Range Interpretation Comments GLUCOSE BEDSIDE TESTING (test code 102 mg/dL 70-110 N = GLUBED) - CT ANGIO [id number] 14:06:00 [facility] : 1965 Sex: M Name: WILMER PARADA [facility] ED : 1965 Age/S: 55 / M [address] Unit #: [id number] Loc: [place] [address] Phys: Anabela Le MD Acct: [id number] Dis Date: Status: ADM IN PHONE #: [phone] Exam Date: 01/05/2021 1679 FAX #: Reason: CVA EXAMS: CPT: [id number] CT ANGIO NECK [address] Exam: - CT ANGIO HEAD, - CT [...] 1 Signed Report (CONTINUED) Name: WILMER PARADA [place] : 1965 Age/S: 55 / M [address] Unit #: [id number] Loc: [place] [address] Phys: Anabela Le MD Acct: [id number] Dis Date: Status: ADM IN PHONE #: [phone] Exam Date: 01/05/2021 1335 FAX #: Reason: CVA EXAMS: CPT: [id number] CT ANGIO NECK [address] <Continued> visualized fascial planes ofthe neck are [...] 2 Signed Report (CONTINUED) Name: WILMER PARADA [facility] [place] : 1965 Age/S: 55 / M [address] Unit #: [id number] Loc: [place] [address] Phys: Anabela Le MD Acct: [id number] Dis Date: Status: ADM IN PHONE #: [phone] Exam Date: 01/05/2021 7681 FAX #: Reason: CVA EXAMS: CPT: [id number] CT ANGIO NECK [address] <Continued> Posterior communicating arteries: Not visualized Distal [...] 3 Signed Report (CONTINUED) Name: WILMER PARADA [facility] ED : 1965 Age/S: 55 / M [address] Unit #: [id number] Loc: [place] [address]Qgcc: Anabela Le MD Acct: [id number] Dis Date: Status: ADM IN PHONE #: [phone] Exam Date: 01/05/2021 1335 FAX #: Reason: CVA EXAMS: CPT: [id number] CT ANGIO NECK [address] <Continued> CC: Anabela Le MD; Yared Scott MD Technologist:Criss Sahni RT(R)(CT); .. CTDI: DLP: Trnscb Date/Time: 01/05/2021 (140) t.SDR.AL7 Orig Print D/T: S: 01/05/2021 (1410) PAGE 4 Signed Report- CT ANGIO [id number] 14:06:00 [facility] : 1965 Sex: M Name: WILMER PARADA [facility] ED : 1965 Age/S: 55 / M [address] Unit #: [id number] Loc: [place] [address] Phys: Anabela Le MD Acct: [id number] Dis Date: Status: ADM IN PHONE #: [phone] Exam Date: 01/05/2021 1330 FAX #: Reason: CVA EXAMS: CPT: [id number] CT ANGIO HEAD [address] Exam: - CT ANGIO HEAD, - CT [...] 1 Signed Report (CONTINUED) Name: WILMER PARADA [facility] ED : 1965 Age/S: 55 / M [address] Unit #: [id number] Loc: [place] [address] Phys: Anabela Le MD Acct: [id number] Dis Date: Status: ADM IN PHONE #: [phone] Exam Date: 01/05/2021 1330 FAX #: Reason: CVA EXAMS: CPT: [id number] CT ANGIO HEAD [address] <Continued> visualized fascial planes ofthe neck are [...] 2 Signed Report (CONTINUED) Name: [facility]MER [facility]ADA [facility] 1965 Age/S: 55 / M [address] Unit #: [id number] Loc: [place] [address] Phys: Anabela Le MD Acct: [id number] Dis Date: Status: ADM IN PHONE #: [phone] Exam Date: 01/05/2021 1330 FAX #: Reason: CVA EXAMS: CPT: [id number] CT ANGIO HEAD [address] <Continued> Posterior communicating arteries: Not visualized Distal [...] PARADA : 1965 Age/S: 55 / M [address] Unit #: [id number] Loc: [place], [place] [address]Vthc: Anabela Le MD Acct: [id number] Dis Date: Status: ADM IN PHONE #: [phone] Exam Date: 01/05/2021 1330 FAX #: Reason: CVA EXAMS: CPT: [id number] CT ANGIO HEAD [address] <Continued> CC: Anabela Le MD; Yared Scott MD Technologist:Criss Sahni, RT(R)(CT); .. CTDI: DLP: Trnscb Date/Time: 01/05/2021 (1406) t.[email or web address] Orig Print D/T: S: 01/05/2021 (1410) PAGE 4 Signed ReportBASIC METABOLIC [id number] 12:38:00 Test Item Value Reference Range Interpretation [...] CA) 9.0 MG/DL 8.5-10.1 N CBC W/AUTO [id number] 12:28:00 Test Item Value Reference Range Interpretation [...] code NO DIFF/SCN CRITERIA = MDIFF) PROTHROMBIN [id number] 12:27:00 Test Item Value Reference Range Interpretation Comments PT PATIENT (test code = PTP) 12.1 SECONDS 9.3-12.9 N INTERNATIONAL NORMAL RATIO 1.08 INR Unit 0.8-1.2 N (test code = INR) THROMBOPLASTIN TIME [id number] 12:27:00 Test Item Value Reference Range Interpretation Comments THROMBOPLASTIN TIME PARTIAL 33.0 SECONDS 26-35 N (test code = PTT) GLUCOSE BEDSIDE [id number] 11:56:00 Test Item Value Reference Range Interpretation Comments GLUCOSE BEDSIDE TESTING (test code 101 mg/dL 70-110 N = GLUBED) - CT HEAD/BRAIN W/O [id number] 11:53:00 [facility] : 1965 Sex: M Name: WILMER PARADA [facility] ED : 1965 Age/S: 55 / M [address] Unit #: [id number] Loc: [place] [address] Phys: Susan Conway MD Acct: [id number] Dis Date: Status: ADM IN PHONE #: [phone] Exam Date: 01/05/2021 4379 FAX #: Reason: left sided weakness EXAMS: CPT: [id number] CT HEAD/BRAIN W/O CONT 10886 EXAM: CT Head without contrast Location: B2 [...] 1 Signed Report (CONTINUED) Name: WILMER PARADA [facility] ED : 1965 Age/S: 55 / M [address] Unit #: [id number] Loc: [place] [address] Phys: Susan Conway MD Acct: [id number] Dis Date: Status: ADM IN PHONE #: [phone] Exam Date: 01/05/2021 1131 FAX #: Reason: left sided weakness EXAMS: CPT: [id number] CT HEAD/BRAIN W/O CONT 55868 <Continued> on 01/05/2021 FOR INTERNAL CODING PURPOSES ONLY RESULT CODE: CVR at 1153 Reported and signed by: Diego Paez M.D. CC:Susan Conway MD; Yared Scott MD Technologist:Criss Sahni, RT(R)(CT); .. CTDI: DLP: Trnscb Date/Time: 01/05/2021 (8954) t.SYEDR.AL7 Orig Print D/T: S: 01/05/2021 (9086) PAGE 2 Signed ReportGLUCOSE BEDSIDE [id number] 07:54:00 Test Item Value Reference Range Interpretation Comments GLUCOSE BEDSIDE TESTING (test code 118 mg/dL 70-110 H = GLUBED) GLUCOSE BEDSIDE [id number] 21:52:00 Test Item Value Reference Range Interpretation Comments GLUCOSE BEDSIDE TESTING (test code = 98 mg/dL 70-110 N GLUBED) GLUCOSE BEDSIDE [id number] 15:47:00 Test Item Value Reference Range Interpretation Comments GLUCOSE BEDSIDE TESTING (test code 124 mg/dL 70-110 H = GLUBED) GLUCOSE BEDSIDE [id number] 11:34:00 Test Item Value Reference Range Interpretation Comments GLUCOSE BEDSIDE TESTING (test code 107 mg/dL 70-110 N = GLUBED) GLUCOSE BEDSIDE [id number] 07:37:00 Test Item Value Reference Range Interpretation Comments GLUCOSE BEDSIDE TESTING (test code 109 mg/dL 70-110 N = GLUBED) BASIC METABOLIC [id number] 04:53:00 Test Item Value Reference Range Interpretation [...] code = CA) 8.7 MG/DL 8.5-10.1 N [id number] 04:53:00 Test Item Value Reference Range Interpretation Comments PHOSPHOROUS (test code = PHOS) 3.8 MG/DL 2.5-4.9 N [id number] 04:53:00 Test Item Value Reference Range Interpretation Comments MAGNESIUM (test code = MAG) 2.1 MG/DL 1.8-2.4 N NT PRO-BRAIN NATRIURETIC [id number] 04:53:00 Test Item Value Reference Range Interpretation Comments NT PRO-BRAIN NATRIURETIC PEPTI 753 PG/ML 0-100 H (test code = PROBNP) BASIC METABOLIC [id number] 04:47:00 Test Item Value Reference Range Interpretation [...] code = CA) 8.7 MG/DL 8.5-10.1 N [id number] 04:47:00 Test Item Value Reference Range Interpretation Comments PHOSPHOROUS (test code = PHOS) MG/DL 2.5-4.9 [id number] 04:47:00 Test Item Value Reference Range Interpretation Comments MAGNESIUM (test code = MAG) 2.1 MG/DL 1.8-2.4 N NT PRO-BRAIN NATRIURETIC [id number] 04:47:00 Test Item Value Reference Range Interpretation Comments NT PRO-BRAIN NATRIURETIC PEPTI (test PG/ML 0-100 code = PROBNP) CBC W/AUTO [id number] 04:34:00 Test Item Value Reference Range Interpretation [...] NO DIFF/SCN CRITERIA = MDIFF) GLUCOSE BEDSIDE [id number] 22:32:00 Test Item Value Reference Range Interpretation Comments GLUCOSE BEDSIDE TESTING (test code = 88 mg/dL 70-110 N GLUBED) GLUCOSE BEDSIDE [id number] 17:59:00 Test Item Value Reference Range Interpretation Comments GLUCOSE BEDSIDE TESTING (test code = 97 mg/dL 70-110 N GLUBED) - XR CHEST 1 [id number] 17:25:00 [facility] : 1965 Sex: M Name: WILMER PARADA [facility] ED : 1965 Age/S: 55 / M [address] Unit #: [id number] Loc: [place] [address] Phys: Rolando Napier Acct: [id number] Dis Date: Status: ADM IN PHONE #: [phone] Exam Date: 01/03/2021 1516 FAX #: Reason: Dyspnea EXAMS: CPT: [id number] XR CHEST 1 V 69944 Fluoro Time: DAP (Gy m2): Air Kerma [...] NapierPAGE 1 Signed Report Name: WILMER PARADA [facility] ED : 1965 Age/S: 55 / M [address] Unit #: [id number] Loc: [place] [address] Phys: Rolando Napier LISA Acct: [id number] Dis Date: Status: ADM IN PHONE #: [phone] Exam Date: 01/03/2021 5751 FAX #: Reason: Dyspnea EXAMS: CPT: [id number] XR CHEST 1 V 93660 Fluoro Time: DAP (Gy m2): Air Kerma (mGy): <Continued> Technologist: Polly Mcnamara, RT(R)(CT); Nikole Rider, RT(R) Trnscb Date/Time: 01/03/2021 (172) VikramMD16 Orig Print D/T: S: 01/03/2021 (5461) PAGE 2 Signed ReportBASIC METABOLIC PANEL 2021-01-03 [...] 8.9 MG/DL 8.5-10.1 N Completed by Nursing: [id number] 14:57:00 Test Item Value Reference Range Interpretation [...] method. Completed by Nursing: NOCOVID 19 INHOUSE [id number] 14:55:00 Test Item Value Reference Range Interpretation Comments COVID 19 INHOUSE AG NEGATIVE Negative Per manu facturer, (test code = negative result s should [id number]) be treated aspr esumptive and, if inconsi [...] co nsistent with COVID-19. Spec Comments: NPROTHROMBIN [id number] 14:54:00 Test Item Value Reference Range Interpretation Comments PT PATIENT (test code = PTP) 11.0 SECONDS 9.3-12.9 N INTERNATIONAL NORMAL RATIO 0.98 INR Unit 0.8-1.2 N (test code = INR) THROMBOPLASTIN TIME [id number] 14:54:00 Test Item Value Reference Range Interpretation Comments THROMBOPLASTIN TIME PARTIAL 30.0 SECONDS 26-35 N (test code = PTT) - CT ANGIO [id number] 14:53:00 [facility] 1965 Sex: M Name: WILMER PARADA : 1965 Age/S: 55 / M [address] Unit #: [id number] Loc: [place] [address] Phys: Musa Alfaro DO Acct: [id number] Dis Date: Status: REG ER PHONE #: [phone] Exam Date: 01/03/2021 1425 FAX #: Reason: left sided weakness EXAMS: CPT: [id number] CT ANGIO HEAD [address] B2 - CT ANGIO NECK, - CT [...] PARADA : 1965 Age/S: 55 / M [address] Unit #: [id number] Loc: [place] [address] Phys: Musa Alfaro DO Acct: [id number] Dis Date: Status: REG ER PHONE #: [phone] Exam Date: 01/03/2021 1425 FAX #: Reason: left sided weakness EXAMS: CPT:[id number] CT ANGIO HEAD [address] <Continued> Both posterior cerebral arteries are normal. [...] RT(R) CTDI: DLP: Trnscb Date/Time: 01/03/2021 (1452) [email or web address] Orig Print D/T: S: 01/03/2021 (6771) PAGE 2 Signed Report- CT ANGIO [id number] 14:53:00 [facility] : 1965 Sex: M Name: WILMER PARADA [facility] ED : 1965 Age/S: 55 / M [id number] Unit #: [id number] Loc: [place] [address] Phys: Musa Alfaro DO Acct: [id number] Dis Date: Status: REG ER PHONE #: [phone] Exam Date: 01/03/2021 9394 FAX #: Reason: left sided weakness EXAMS: CPT: [id number] CT ANGIO NECK 28051 B2 - CT ANGIO NECK, - CT [...] 1 Signed Report (CONTINUED) Name: WILMER PARADA [facility] ED : 1965 Age/S: 55 / M [address] Unit #: [id number] Loc: [place] [address] Phys: Musa Alfaro DO Acct: [id number] Dis Date: Status: REG ER PHONE #: [phone] Exam Date: 01/03/2021 7370 FAX #: Reason: left sided weakness EXAMS: CPT:[id number] CT ANGIO NECK [address] <Continued> Both posterior cerebral arteries are normal. [...] Rider, RT(R) CTDI: DLP: Trnscb Date/Time: 01/03/2021 (3348) [email or web address] Orig Print D/T: S: 01/03/2021 (0454) PAGE 2 Signed ReportCBC W/O [id number] 14:32:00 Test Item Value Reference Range Interpretation [...] 7.0-9.6 H MPV) - CT HEAD/BRAIN W/O [id number] 14:20:00 [facility] 1965 Sex: M Name: WILMER PARADA [facility] ED : 1965 Age/S: 55 / M [address] Unit #: [id number] Loc: [place] [address] Phys: DominicMusa Cespedes DO Acct: [id number] Dis Date: Status: PRE ER PHONE #: [phone] Exam Date: 01/03/2021 1409 FAX #: Reason: Code Stroke EXAMS: CPT: [id number] CT HEAD/BRAIN W/O CONT 85294 EXAMINATION: Head CT without contrast INDICATION: Code stroke COMPARISON: 11/29/2020 LOCATION: S17 TECHNIQUE: Axial noncontrast head CT was performed. Sagittal and coronal reformatted images were created. CT radiation dose optimization is achieved for this examination by the use of a CT protocol in accordance with ACR practice guidelines and adherence to guest services officer recommendations. DLP: 836 mGy-cm. FINDINGS: Mild-moderate supratentorial [...] RT(R)(CT); La CTDI: DLP: Trnscb Date/Time: 01/03/2021 (142) [email or web address] Orig Print D/T: S: 01/03/2021 (3363) PAGE 1 Signed ReportGLUCOSE BEDSIDE [id number] 11:35:00 Test Item Value Reference Range Interpretation Comments GLUCOSE BEDSIDE TESTING (test code 115 MG/DL 70-119 N = GLUBED) CBC W/AUTO [id number] 09:54:00 Test Item Value Reference Range Interpretation [...] 0.00 K/mm3 0.00-0.05 N NRBC#) RECOLLECTGLUCOSE BEDSIDE [id number] 07:34:00 Test Item Value Reference Range Interpretation Comments GLUCOSE BEDSIDE TESTING (test code 116 MG/DL 70-119 N = GLUBED) BASIC METABOLIC [id number] 06:24:00 Test Item Value Reference Range Interpretation [...] code = MG Index/DL The system [employer]) generated this result transmit breanne reference range [...] to interpret this result as normal/abnormal . [id number] 06:24:00 Test Item Value Reference Range Interpretation Comments MAGNESIUM (test code = MAG) 2.3 MG/DL 1.6-2.6 N GLUCOSE BEDSIDE [id number] 20:37:00 Test Item Value Reference Range Interpretation Comments GLUCOSE BEDSIDE TESTING (test code 118 MG/DL 70-119 N = GLUBED) GLUCOSE BEDSIDE [id number] 16:47:00 Test Item Value Reference Range Interpretation Comments GLUCOSE BEDSIDE TESTING (test code 100 MG/DL 70-119 N = GLUBED) GLUCOSE BEDSIDE [id number] 07:44:00 Test Item Value Reference Range Interpretation Comments GLUCOSE BEDSIDE TESTING (test code 121 MG/DL 70-119 H = GLUBED) GLUCOSE BEDSIDE [id number] 19:59:00 Test Item Value Reference Range Interpretation Comments GLUCOSE BEDSIDE TESTING (test code 135 MG/DL 70-119 H = GLUBED) GLUCOSE BEDSIDE [id number] 15:51:00 Test Item Value Reference Range Interpretation Comments GLUCOSE BEDSIDE TESTING (test code = 85 MG/DL 70-119 N GLUBED) - NM MYOCRD SPECT R/S [id number] 13:57:00 [facility] : 1965 Sex: M ------- Patient Name: WILMER PARADA Unit No: [id number] EXAMS: CPT CODE: [id number] NM MYOCRD SPECT R/S MULT 43119 Patient was brought to the stress test [...] DELA CRUZ CNP,SIVAN Montelongo; Jake Olmos DO [facility] Pedro Pablo NAME: WILMER PARADA [employer] PHYS: Alexa Farrell APRN, C [address] [place] [address] : 1965 AGE: 54 SEX: Kenrick [place], [place] [address] LOC: [facility] [place] W PHONE #: [phone] EXAM DATE: 12/01/2020 STATUS: ADM IN FAX #: [phone] RAD NO: DC Dt: PAGE 1 Signed Report Patient Name: WILMER PARADA Unit No: [id number] EXAMS: CPT CODE: [id number] NM MYOCRD SPECT R/S MULT 14358 <Continued> Technologist: Macy Sepulveda Transcribed Date/Time: 12/03/2020 (6686)- [email or web address] Orig Print D/T: S: 12/03/2020 (1400) EMILY Chamorro NAME: TALWILMER [employer] PHYS: Alexa Farrell APRN[address] : 1965 AGE: 54 SEX: Kenrick [place], [place] [address] LOC: [place] W PHONE #: [phone] EXAM DATE: 12/01/2020 STATUS: ADM IN FAX #: [phone] RAD NO: DC Dt: PAGE 2 Signed ReportGLUCOSE BEDSIDE [id number] 11:46:00 Test Item Value Reference Range Interpretation Comments GLUCOSE BEDSIDE TESTING (test code 114 MG/DL 70-119 N = GLUBED) [id number] 07:43:00 Test Item Value Reference Range Interpretation Comments CKMB (test code = 1.1 NG/ML 1.0-3.6 N MONOCLONAL CKMB CKMBT) METHODOLOGY. [id number] 07:43:00 Test Item Value Reference Range Interpretation [...] changes in trop onin levelscharacter istic of [place]. GLUCOSE BEDSIDE [id number] 07:35:00 Test Item Value Reference Range Interpretation Comments GLUCOSE BEDSIDE TESTING (test code 104 MG/DL 70-119 N = GLUBED) [id number] 07:24:00 Test Item Value Reference Range Interpretation Comments CKMB (test code = CKMBT) NG/ML 1.0-3.6 [id number] 07:24:00 Test Item Value Reference Range Interpretation [...] changes in trop onin levelscharacter istic of [place]. BASIC METABOLIC [id number] 06:50:00 Test Item Value Reference Range Interpretation [...] message] (test code = Index/DL The system [employer]EMINDEX) generated this result transmit breanne reference [...] to interpret this result as normal/abnormal . [id number] 06:50:00 Test Item Value Reference Range Interpretation Comments MAGNESIUM (test code = MAG) 2.2 MG/DL 1.6-2.6 N BASIC METABOLIC [id number] 06:24:00 Test Item Value Reference Range Interpretation [...] message] (test code = Index/DL The system [employer]) generated this result transmit breanne reference range [...] to interpret this result as normal/abnormal . [id number] 06:24:00 Test Item Value Reference Range Interpretation Comments MAGNESIUM (test code = MAG) MG/DL 1.6-2.6 GLUCOSE BEDSIDE [id number] 19:35:00 Test Item Value Reference Range Interpretation Comments GLUCOSE BEDSIDE TESTING (test code 130 MG/DL 70-119 H = GLUBED) GLUCOSE BEDSIDE [id number] 16:35:00 Test Item Value Reference Range Interpretation Comments GLUCOSE BEDSIDE TESTING 103 MG/DL 70-119 N Noti fied Nurse~ (test code = GLUBED) GLUCOSE BEDSIDE [id number] 12:00:00 Test Item Value Reference Range Interpretation Comments GLUCOSE BEDSIDE TESTING 128 MG/DL 70-119 H Noti fied Nurse~ (test code = GLUBED) GLUCOSE BEDSIDE [id number] 08:28:00 Test Item Value Reference Range Interpretation Comments GLUCOSE BEDSIDE TESTING 123 MG/DL 70-119 H Noti fied Nurse~ (test code = GLUBED) GLUCOSE BEDSIDE [id number] 19:40:00 Test Item Value Reference Range Interpretation Comments GLUCOSE BEDSIDE TESTING (test code = 84 MG/DL 70-119 N GLUBED) GLUCOSE BEDSIDE [id number] 16:53:00 Test Item Value Reference Range Interpretation Comments GLUCOSE BEDSIDE TESTING 100 MG/DL 70-119 N Noti fied Nurse~ (test code = GLUBED) GLUCOSE BEDSIDE [id number] 13:00:00 Test Item Value Reference Range Interpretation Comments GLUCOSE BEDSIDE TESTING (test code 128 MG/DL 70-119 H = GLUBED) GLUCOSE BEDSIDE [id number] 08:35:00 Test Item Value Reference Range Interpretation Comments GLUCOSE BEDSIDE TESTING (test code = 95 MG/DL 70-119 N GLUBED) GLUCOSE BEDSIDE [id number] 19:49:00 Test Item Value Reference Range Interpretation Comments GLUCOSE BEDSIDE TESTING (test code 117 MG/DL 70-119 N = GLUBED) GLUCOSE BEDSIDE [id number] 16:52:00 Test Item Value Reference Range Interpretation Comments GLUCOSE BEDSIDE TESTING (test code 103 MG/DL 70-119 N = GLUBED) GLUCOSE BEDSIDE [id number] 12:30:00 Test Item Value Reference Range Interpretation Comments GLUCOSE BEDSIDE TESTING (test code 121 MG/DL 70-119 H = GLUBED) GLUCOSE BEDSIDE [id number] 07:43:00 Test Item Value Reference Range Interpretation Comments GLUCOSE BEDSIDE TESTING (test code = 96 MG/DL 70-119 N GLUBED) COMPREHENSIVE METABOLIC [id number] 05:53:00 Test Item Value Reference Range Interpretation [...] (test code = MG Index/DL The system [employer]EMINDEX) generated this result transmit breanne reference [...] to interpret this result as normal/abnormal . [id number] 05:53:00 Test Item Value Reference Range Interpretation Comments MAGNESIUM (test code = MAG) 2.2 MG/DL 1.6-2.6 N COMPREHENSIVE METABOLIC [id number] 05:38:00 Test Item Value Reference Range Interpretation [...] to interpret this result as normal/abnor mal. [id number] 05:38:00 Test Item Value Reference Range Interpretation Comments MAGNESIUM (test code = MAG) MG/DL 1.6-2.6 GLYCOSYLATED HEMOGLOBIN (HA1C)2020-11-30 05:21:00 Test Item Value Reference Range Interpretation Comments GLYCOSYLATED HEMOGLOBIN (HA1C) 5.9 % IS-A1C 4.5-5.6 H (test code = GLYHGB) Specimen comments: use blood sample in the labComments to Customer Greeter: use blood sample in the labCBC W/AUTO [id number] 05:12:00 Test Item Value Reference Range Interpretation [...] code = 0.00 K/mm3 0.00-0.05 N NRBC#) [id number] 00:17:00 Test Item Value Reference Range Interpretation Comments CKMB (test code = 1.4 NG/ML 1.0-3.6 N MONOCLONAL CKMB CKMBT) METHODOLOGY. [id number] 00:17:00 Test Item Value Reference Range Interpretation [...] changes in trop onin levelscharacter istic of [place]. [id number] 23:57:00 Test Item Value Reference Range Interpretation Comments CKMB (test code = CKMBT) NG/ML 1.0-3.6 [id number] 23:57:00 Test Item Value Reference Range Interpretation [...] changes in trop onin levelscharacter istic of [place]. GLUCOSE BEDSIDE [id number] 20:50:00 Test Item Value Reference Range Interpretation Comments GLUCOSE BEDSIDE TESTING (test code 126 MG/DL 70-119 H = GLUBED) [id number] 20:10:00 Test Item Value Reference Range Interpretation Comments CKMB (test code = 1.6 NG/ML 1.0-3.6 N MONOCLONAL CKMB CKMBT) METHODOLOGY. [id number] 20:10:00 Test Item Value Reference Range Interpretation [...] changes in trop onin levelscharacter istic of [place]. [id number] 19:57:00 Test Item Value Reference Range Interpretation Comments CKMB (test code = CKMBT) NG/ML 1.0-3.6 [id number] 19:57:00 Test Item Value Reference Range Interpretation [...] changes in trop onin levelscharacter istic of [place]. COVID 19 Asymptomatic IH [id number] 18:32:00 Test Item Value Reference Range Interpretation Comments COVID 19 Asymptomatic IH AG (test Negative Neg code = COVNONPUIAG) - CT ANGIO [id number] 17:08:00 [facility] : 1965 Sex: M Patient Name: WILMER PARADA Unit No: [id number] EXAMS: CPT CODE: [id number] CT ANGIO HEAD [address] Dictation location: [facility]. CT ANGIOGRAM OF THE NECK AND HEAD WITH IV CONTRAST; MIP AND 3-D RECONSTRUCTIONS HISTORY: Left sided weakness COMPARISON: None TECHNIQUE: Axial CT images of the neck and head were obtained with coronal and/or sagittal reformatted views. MIP and/or 3-D reconstruction were obtained of the carotid arteries in the neck and huslia of [place]. Automated exposure control, iterative reconstruction [...] is limited. No definite occlusion or aneurysm. [facility] Pedro Pablo NAME: WILMER PARADA [address] [place] [address] Bl PHYS: RADAMES - Jake Olmos, [place] [address] : 1965 AGE: 54 SEX: M LOC: AleshiaCHERISE PHONE #: [phone] EXAM DATE: 11/29/2020 STATUS: REG ER FAX #: [phone] RAD #: D/C DT PAGE 1 Signed Report (CONTINUED) Patient Name: WILMER PARADA Unit No: [id number] EXAMS: CPT CODE: [id number] CT ANGIO HEAD [address] <Continued> at 1708 Reported and signed by: Uriah Moran MD CC: Jake Olmos DO Dictated Date/Time: 11/29/2020 (1708) Technologist: Luisana Mederos CTDI: 73.04 DLP: 2044.21 Trnscrpt: 11/29/2020 (1708) [email or web address] EMILY Chamorro NAME: [address] PHYS: RADAMES [place] [address] : 1965 AGE: 54 SEX: M LOC: B.ERS PHONE #: [phone] EXAM DATE: 11/29/2020 STATUS: REG ER FAX #: [phone] RAD #: D/C DT PAGE 2 Signed Report Patient Name: WILMER PARADA Unit No: [id number] EXAMS: CPT CODE: [id number] CT ANGIO HEAD [address] <Continued> Orig Print D/T: S: 11/29/2020 (1711) EMILY Wickliffe NAME: T[address] PHYS: RADAMES [place] [address] : 1965 AGE: 54 SEX: M LOC: [facility] PHONE #: [phone] EXAM DATE: 11/29/2020 STATUS: REG ER FAX #: [phone] RAD #: D/C DT PAGE 3 Signed Report- CT ANGIO [id number] 17:08:00 [facility] : 1965 Sex: M Patient Name: WILMER PARADA Unit No: [id number] EXAMS: CPT CODE: [id number] CT ANGIO NECK 00868 Dictation location: H37. CT ANGIOGRAM OF THE NECK AND HEAD WITH IV CONTRAST; MIP AND 3-D RECONSTRUCTIONS HISTORY: Left sided weakness COMPARISON: None TECHNIQUE: Axial CT images of the neck and head were obtained with coronal and/or sagittal reformatted views. MIP and/or 3-D reconstruction were obtained of the carotid arteries in the neck and huslia of [place]. Automated exposure control, iterative reconstruction [...] is limited. No definite occlusion or aneurysm. [facility] Pedro Pablo NAME: WILMER PARADA [address] [place] [address] Bl PHYS: ARVIN. - [place] [address] : 1965 AGE: 54 SEX: M LOC: AleshiaERS PHONE #: [phone] EXAM DATE: 11/29/2020 STATUS: REG ER FAX #: [phone] RAD #: D/C DT PAGE 1 Signed Report (CONTINUED) Patient Name: WILMER PARADA Unit No: [id number] EXAMS: CPT CODE: [id number] CT ANGIO NECK [address]91 <Continued> at 1708 Reported and signed by: Uriah Moran MD CC: Jake Olmos DO Dictated Date/Time: 11/29/2020 (170) Technologist: Luisana Mederos CTDI: 0 DLP: 0 Trnscrpt: 11/29/2020 (1708) [email or web address] EMILY Chamorro NAME: [address] PHYS: RADAMES [place] [address] : 1965 AGE: 54 SEX: M LOC: AleshiaERS PHONE #: [phone] EXAM DATE: 11/29/2020 STATUS: [facility] ER FAX #: [phone] RAD #: D/C DT PAGE 2 Signed Report Patient Name: WILMER PARADA Unit No: [id number] EXAMS: CPT CODE: [id number] CT ANGIO NECK [address]2492 <Continued> Orig Print D/T: S: 11/29/2020 (1711) EMILY Wickliffe NAME: [address] PHYS: RADAMES [place] [address] : 1965 AGE: 54 SEX: M LOC: AleshiaERS PHONE #: [phone] EXAM DATE: 11/29/2020 STATUS: REG ER FAX #: [phone] RAD #: D/C DT PAGE 3 Signed Report- XR CHEST 1 [id number] 11:48:00 [facility] : 1965 Sex: M Name: WILMER PARADA [place] : 1965 Age/S: 54 / M [address] Unit #: [id number] Loc: [place] [address] Phys: Maximino Ham MD Acct: [id number] Dis Date: Status: REG ER PHONE #: [phone] Exam Date: 11/29/2020 1108 FAX #: Reason: chest pain, stroke symptoms EXAMS: CPT: [id number] XR CHEST 1 V 10862 Fluoro Time: DAP (Gy m2): Air Kerma [...] PAGE 1 Signed Report Name: WILMER PARADA [facility] [place] : 1965 Age/S: 54 / M [address] Unit #: [id number] Loc: [place] [address] Phys: Maximino Ham MD Acct: [id number] Dis Date: Status: REG ER PHONE #: [phone] Exam Date: 11/29/2020 1108 FAX #: Reason: chest pain, stroke symptoms EXAMS: CPT: [id number] XR CHEST 1 V 35567 Fluoro Time: DAP (Gy m2): Air Kerma (mGy): <Continued> Technologist: Bandar Tirado RT(R)(CT) Trnscb Date/Time: 11/29/2020 (1148) [email or web address].ANS4 Orig Print D/T: S: 11/29/2020 (5925) PAGE 2 Signed Report- CT ABD PELVIS [id number] 11:20:00 [facility] : 1965 Sex: M Name: WILMER PARADA [facility] ED : 1965 Age/S: 54 / M [address] Unit #: [id number] Loc: [place] [address] Phys: Maximino Ham MD Acct: [id number] Dis Date: Status: REG ER PHONE #: [phone] Exam Date: 11/29/2020 1046 FAX #: Reason: rule out dissection EXAMS: CPT: [id number] CT ABD PELVIS W/CONT 55403 LOCATION: T18 EXAM: CT CHEST WITH CONTRAST [...] 1 Signed Report (CONTINUED) Name: WILMER PARADA [facility] [place] : 1965 Age/S: 54 / M [address] Unit #: [id number] Loc: [place] [address] Phys: Maximino Ham MD Acct: [id number] Dis Date: Status: REG ER PHONE #: [phone] Exam Date: 11/29/2020 1046 FAX #: Reason: rule out dissection EXAMS: CPT: [id number] CT ABD PELVIS W/CONT 36355 <Continued> at 1120 Reported and signed by: Bill Lake M.D. CC: Maximino Ham MD Technologist:Gala Menard, RT(R); Nikole CTDI: DLP: Trnscb Date/Time: 11/29/2020 (1120) t.[email or web address].JP19 Orig Print D/T: S: 11/29/2020 (1123) PAGE 2 Signed Report- CT CHEST W/CONTRAST 2020-11-29 11:20:00 [facility] : 1965 Sex: M Name: WILMER PARDAA [facility] ED : 1965 Age/S: 54 / M [address] Unit #: [id number] Loc: [place] [address] Phys: Maximino Ham MD Acct: [id number] Dis Date: Status: REG ER PHONE #: [phone] Exam Date: 11/29/2020 1056 FAX #: Reason: rule out dissection EXAMS: CPT: [id number] CT CHEST W/CONTRAST 29514 LOCATION: T18 EXAM: CT CHEST WITH CONTRAST [...] PAGE 1 Signed Report (CONTINUED) [facility] 1965 Age/S: 54 / M [address] Unit #: [id number] Loc: [place] [address] Phys: Maximino Ham MD Acct: [id number] Dis Date: Status: REG ER PHONE #: [phone] Exam Date: 11/29/2020 1056 FAX #: Reason: rule out dissection EXAMS: CPT: [id number] CT CHEST W/CONTRAST 33852 <Continued> at 1120 Reported and signed by: Bill Lake M.D. CC: Maximino Ham MD Technologist:Gala Menard, RT(R); Nikole CTDI: DLP: Trnscb Date/Time: 11/29/2020 (1120) [email or web address] Orig Print D/T: S: 11/29/2020 (1123) PAGE 2 Signed Report- CT HEAD/BRAIN W/O CONT 2020-11-29 11:15:00 [facility] : 1965 Sex: M Name: WILMER PARADA [facility] ED : 1965 Age/S: 54 / M [address] Unit #: [id number] Loc: [place] [address] Phys: Maximino Ham MD Acct: [id number] Dis Date: Status: REG ER PHONE #: [phone] Exam Date: 11/29/2020 1045 FAX #: Reason: CVA symptoms EXAMS: CPT: [id number] CT HEAD/BRAIN W/O CONT 29948 EX AM: - CT HEAD/BRAIN W/O CONT [...] 11/29/2020 (1118) PAGE 1 Signed ReportCOMPREHENSIVE METABOLIC [id number] 10:03:00 Test Item Value Reference Range Interpretation [...] N code = ALKP) Completed by Nursing: [id number] 10:03:00 Test Item Value Reference Range Interpretation [...] yby method. Completed by Nursing: NOCBC W/AUTO [id number] 09:45:00 Test Item Value Reference Range Interpretation [...]
[2021-09-16 19:00] LABS: Absolute Lymphocytes (CBC) 1.8 K/uL (0.7-4.9); Hematocrit 40.7 % (39.6-49.0); Lymphocytes % 35.2 % (15.3-44.8); MPV 8.8 fL (7.6-11.3); RBC Red Blood Cell Count 5.15 M/uL (4.33-5.43)
[2021-09-16] MEDS ORDERED: FENTANYL CITR 100 MCG/2 ML ONE ×2 (19:10→21:14)
[2021-09-16] MEDS ORDERED: FUROSEMIDE 100 MG/10 ML VIAL IV ONE (19:10)
[2021-09-16 19:18] LABS: Albumin 3.3 g/dL (3.4-5.0); Bilirubin Direct 0.1 mg/dL (0-0.2); Bilirubin Total 0.4 mg/dL (0.2-1.0); Magnesium 2.1 mg/dL (1.8-2.4); Potassium 3.8 mmol/L (3.5-5.1); Protein, Total 7.6 g/dL (6.4-8.2)
[2021-09-16 19:40] LABS: Troponin High Sensitivity 30.1 pg/mL (<58.9)
--- NOTE | 2021-09-16 19:55 | RAD REPORT ---
EXAM DESCRIPTION: RAD - Chest Single View - 09/16/2021 7:35 pm CLINICAL HISTORY: CHEST PAIN Chest pain. COMPARISON: Chest Single View dated 09/10/2021; Chest Pa And Lat (2 Views) dated 07/28/2021; Chest Sin gle View dated 07/12/2021; Chest Single View dated 07/08/2021 FINDINGS: Portable technique limits examination quality. Mild to moderate bilateral pulmonary opacities are present likely representing pulmonary edema. The h eart is moderately enlarged in size. Multilead pacer/ defibrillator device is present. IMPRESSION: Mild to moderate CHF.
--- NOTE | 2021-09-16 21:08 | ER ---
Nurse's Notes [facility] Name: Bryan Watts Age: 55 yrs Sex: Male : 1965 Arrival Date: 09/16/2021 Time: 18:43 Bed 15 Private MD: Diagnosis: Chronic combined systolic (congestive) and diastolic (congestive) heart failure;Chest pain on breathing Presentation: 09/16 18:30 Chief complaint: EMS states: CP that began yesterday; pt stated 'didn't want to come to [address] yesterday bc of the football game but my chest pain hasnt gotten any better since then'; pt states SOB, pain with deep inhalation and headache, denies N/V. EMS stated administered 324 mg of Aspirin PO x1 , 0.4 mg of Nitro sublingual x1, 100 mL of NS and 5 mg of Metoprolol IVP x1. Coronavirus screen: Vaccine status: Patient reports receiving the 2nd dose of the covid vaccine. Client denies travel out of the [place] in the last 14 days. Ebola Screen: Patient negative for fever greater than or equal to 101.5 degrees Fahrenheit, and additional compatible Ebola Virus Disease symptoms. Initial Sepsis Screen: Does the patient meet any 2 criteria?. Initial Sepsis Screen: Does the patient have a suspected source of infection? No. Patient's initial sepsis screen is negative. Risk Assessment: Do you want to hurt yourself or someone else? Patient reports no desire to harm self or others. Onset of symptoms was September 15, 2021. 18:30 Method Of Arrival: EMS: [place] [address] 18:30 Acuity: GABBY 2 [facility] Triage Assessment: 18:50 General: Appears in no apparent distress. uncomfortable, Behavior is cooperative. Pain: [facility] Complains of pain in chest Pain does not radiate. Pain currently is 10 out of 10 on a pain scale. Pain began 1 day ago. EENT: No signs and/or symptoms were reported regarding the EENT system. Neuro: Level of Consciousness is awake, alert, obeys commands, Oriented to person, place, time, situation, Reports headache. Cardiovascular: Patient's skin is warm and dry. Respiratory: Airway is patent Respiratory effort is even, unlabored. GI: Patient currently denies nausea, vomiting. : No signs and/or symptoms were reported regarding the genitourinary system. Derm: Skin is intact, is healthy with good turgor. Musculoskeletal: Circulation, motion, and sensation intact. Historical: - Allergies: 18:50 Allergic to unknown medicine and unknown reaction; vg1 - Home Meds: 18:50 amlodipine 10 mg tab 1 tab once daily [Active]; atorvastatin 80 mg Oral tab 1 tab once vg1 daily [Active]; carvedilol 25 mg Oral tab 1 tab 2 times per day [Active]; hydralazine 100 mg Oral tab 1 tab 4 times per day [Active]; lisinopril 20 mg Oral tab 1 tab twice a day [Active]; - PMHx: 18:50 Diabetes - IDDM; Hyperlipidemia; Hypertension; vg1 - PSHx: 18:50 Pace maker; vg1 - Immunization history:: Client reports receiving the 2nd dose of the Covid vaccine. - Social history:: Smoking status: Patient denies any tobacco usage or history of. Screenin:51 Abuse screen: Denies threats or abuse. Nutritional screening: No deficits noted. vg1 Tuberculosis screening: No symptoms or risk factors identified. Fall Risk No fall in past 12 months (0 pts). No secondary diagnosis (0 pts). IV access (20 points). Ambulatory Aid- None/Bed Rest/Nurse Assist (0 pts). Gait- Normal/Bed Rest/Wheelchair (0 pts) Mental Status- Oriented to own ability (0 pts). Total Wells Fall Scale indicates No Risk (0-24 pts). Assessment: 18:51 Reassessment: SEE TRIAGE. vg1 19:22 Reassessment: Patient and/or family updated on plan of care and expected duration. Pain vc1 level reassessed. 21:16 Reassessment: Patient and/or family updated on plan of care and expected duration. Pain vc1 level reassessed. Patient states feeling better. Patient states symptoms have improved. General: Appears in no apparent distress. comfortable, obese, Behavior is calm, cooperative, appropriate for age. Pain: Complains of pain in chest. Neuro: No deficits noted. Vital Signs: 18:30 BP 147 / 123; Pulse 92; Resp 17; Temp 97.9; Pulse Ox 99% ; Weight 138.35 kg; Height 6 vg1 ft. 2 in. (187.96 cm); Pain 10/10; 19:15 BP 162 / 116; Pulse 91; Resp 19; Pulse Ox 98% on R/A; vc1 21:15 BP 120 / 86; Pulse 88; Resp 16; Pulse Ox 99% on R/A; vc1 18:30 Body Mass Index 39.16 (138.35 kg, 187.96 cm) vg1 ED Course: 18:43 Patient arrived in ED. vg1 18:47 [facility] jr8 18:47 Ronald Rouse MD is Attending Physician. jr8 18:50 Triage completed. vg1 18:50 Arm band placed on. vg1 18:51 Patient has correct armband on for positive identification. Placed in gown. Bed in low vg1 position. Call light in reach. Side rails up X 1. color television console monitor on. Pulse ox on. NIBP on. 18:51 Maintain EMS IV. Dressing intact. Good blood return noted. Site clean \T\ dry. Gauge \T\ vg 1 site: 20 g Left hand. Patient maintains SpO2 saturation greater than 95% on room air. 19:35 XRAY Chest (1 view) In Process Unspecified. EDMS 19:56 NT PRO-BNP Sent. vc1 21:06 Silviano Grimes MD is Referral Physician. jr8 21:36 No provider procedures requiring assistance completed. IV discontinued, intact, vc1 bleeding controlled, No redness/swelling at site. Pressure dressing applied. Administered Medications: 19:20 Drug: fentaNYL (PF) 50 mcg Route: IVP; Site: left hand; vc1 21:15 Follow up: Response: No adverse reaction vc1 19:21 Drug: Lasix (furosemide) 60 mg Route: IVP; Site: left hand; vc1 21:15 Follow up: Response: No adverse reaction; Marked relief of symptoms vc1 21:17 Drug: fentaNYL (PF) 25 mcg Route: IVP; Site: left hand; vc1 21:37 Follow up: Response: No adverse reaction; Marked relief of symptoms; Pain is decreased vc1 Outcome: 21:07 Discharge ordered by . jr8 21:36 Discharged to home ambulatory. vc1 21:36 Condition: good 21:36 Discharge instructions given to patient, Instructed on discharge instructions, follow up and referral plans. Demonstrated understanding of instructions, follow-up care. 21:37 Patient left the ED. vc1 Signatures: Dispatcher [employer] Kalen Odell PA PA jr8 Mita Vazquez, RN RN vg1 Madhuri Regan RN RN vc1
--- NOTE | 2021-09-16 21:08 | EDPHYS ---
Physician Documentation [facility] Name: Bryan Watts Age: 55 yrs Sex: Male : 1965 Arrival Date: 09/16/2021 Time: 18:43 Bed 15 Private MD: ED Physician Ronald Rouse HPI: 09/16 19:42 This 55 yrs old Black Male presents to ER via EMS with complaints of Chest Pain > 30 jr8 y/o. 19:42 The patient or guardian reports chest pain that is located primarily in the substernal jr8 area. Onset: acutely, today. The pain does not radiate. Associated signs and symptoms: Pertinent positives: shortness of breath. The chest pain is described as sharp. Duration: The patient or guardian reports multiple episodes, that are intermittent, that wax and wane. Modifying factors: The symptoms are alleviated by nothing. the symptoms are aggravated by deep breath. Severity of pain: At its worst the pain was moderate in the emergency department the pain is unchanged. The patient has experienced similar episodes in the past, several times. The patient has been recently been admitted at [facility], was discharged last week, for similar complaints, but despite evaluation and treatment the patient has continued symptoms. Historical: - Allergies: 18:50 Allergic to unknown medicine and unknown reaction; vg1 - Home Meds: 18:50 amlodipine 10 mg tab 1 tab once daily [Active]; atorvastatin 80 mg Oral tab 1 tab once vg1 daily [Active]; carvedilol 25 mg Oral tab 1 tab 2 times per day [Active]; hydralazine 100 mg Oral tab 1 tab 4 times per day [Active]; lisinopril 20 mg Oral tab 1 tab twice a day [Active]; - PMHx: 18:50 Diabetes - IDDM; Hyperlipidemia; Hypertension; vg1 - PSHx: 18:50 Pace maker; vg1 - Immunization history:: Client reports receiving the 2nd dose of the Covid vaccine. - Social history:: Smoking status: Patient denies any tobacco usage or history of. ROS: 19:42 Eyes: Negative for injury, pain, redness, and discharge, ENT: Negative for injury, jr8 pain, and discharge, Neck: Negative for injury, pain, and swelling, Abdomen/GI: Negative for abdominal pain, nausea, vomiting, diarrhea, and constipation, Back: Negative for injury and pain, MS/Extremity: Negative for injury and deformity, Skin: Negative for injury, rash, and discoloration, Neuro: Negative for headache, weakness, numbness, tingling, and seizure. 19:42 Cardiovascular: Positive for chest pain, Negative for edema, orthopnea, palpitations. 19:42 Respiratory: Positive for shortness of breath, at rest. Exam: 19:42 Eyes: Pupils equal round and reactive to light, extra-ocular motions intact. Lids and jr8 lashes normal. Conjunctiva and sclera are non-icteric and not injected. Cornea within normal limits. Periorbital areas with no swelling, redness, or edema. ENT: Nares patent. No nasal discharge, no septal abnormalities noted. Tympanic membranes are normal and external auditory canals are clear. Oropharynx with no redness, swelling, or masses, exudates, or evidence of obstruction, uvula midline. Mucous membranes moist. Neck: Trachea midline, no thyromegaly or masses palpated, and no cervical lymphadenopathy. Supple, full range of motion without nuchal rigidity, or vertebral point tenderness. No Meningismus. Cardiovascular: Regular rate and rhythm with a normal S1 and S2. No gallops, murmurs, or rubs. Normal PMI, no JVD. No pulse deficits. Respiratory: Lungs have equal breath sounds bilaterally, clear to auscultation and percussion. No rales, rhonchi or wheezes noted. No increased work of breathing, no retractions or nasal flaring. Abdomen/GI: Soft, non-tender, with normal bowel sounds. No distension or tympany. No guarding or rebound. No evidence of tenderness throughout. Back: No spinal tenderness. No costovertebral tenderness. Full range of motion. Skin: Warm, dry with normal turgor. Normal color with no rashes, no lesions, and no evidence of cellulitis. MS/ Extremity: Pulses equal, no cyanosis. Neurovascular intact. Full, normal range of motion. Neuro: Awake and alert, GCS 15, oriented to person, place, time, and situation. Cranial nerves II-XII grossly intact. Motor strength 5/5 in all extremities. Sensory grossly intact. Vital Signs: 18:30 BP 147 / 123; Pulse 92; Resp 17; Temp 97.9; Pulse Ox 99% ; Weight 138.35 kg; Height 6 vg1 ft. 2 in. (187.96 cm); Pain 10/10; 19:15 BP 162 / 116; Pulse 91; Resp 19; Pulse Ox 98% on R/A; vc1 21:15 BP 120 / 86; Pulse 88; Resp 16; Pulse Ox 99% on R/A; vc1 18:30 Body Mass Index 39.16 (138.35 kg, 187.96 cm) vg1 MDM: 18:50 Patient medically screened. jr8 21:05 The patient was not given aspirin in the Emergency Department. Administered by EMS. jr8 Data reviewed: vital signs, nurses notes, lab test result(s), EKG, radiologic studies, and as a result, I will discharge patient. Data interpreted: Pulse oximetry: on room air is 98 %. Interpretation: normal. Counseling: I had a detailed discussion with the patient and/or guardian regarding: the historical points, exam findings, and any diagnostic results supporting the discharge/admit diagnosis, lab results, radiology results, the need for outpatient follow up, a chalk cutter, to return to the emergency department if symptoms worsen or persist or if there are any questions or concerns that arise at home. ED course: Patient well diuresed. Blood pressure has decreased and is hemodynamically stable at this time. Both troponins are negative. EKG stable when compared to the last one. Reviewed his old admission along with current lab work today. Labs today have actually improved. Will have patient follow-up with cardiology notes come back appear to worsen at any point time. Otherwise there is no criteria for admission at this time as patient is not hypoxic and has no elevated troponin and a stable EKG and chest x-ray.. 09/16 18:43 Order name: Basic Metabolic Panel; Complete Time: 20: [facility] 09/16 18:43 Order name: CBC with Diff; Complete Time: 19: 09/16 18:43 Order name: LFT's; Complete Time: 20: [facility] 09/16 18:43 Order name: Magnesium; Complete Time: 20: 09/16 18:43 Order name: NT PRO-BNP; Complete Time: 20: [facility] 09/16 18:43 Order name: PT-INR; Complete Time: 19: 09/16 18:43 Order name: Troponin HS; Complete Time: 20: 1 09/16 18:43 Order name: XRAY Chest (1 view); Complete Time: 19:59 vg1 09/16 18:43 Order name: EKG; Complete Time: 18:44 vg1 09/16 18:43 Order name: Cardiac monitoring; Complete Time: 18:43 vg1 09/16 20:11 Order name: Troponin High Sensitivity; Complete Time: 21:04 jr8 09/16 18:43 Order name: EKG - Nurse/Tech; Complete Time: 18:43 vg1 09/16 18:43 Order name: IV Saline Lock; Complete Time: 18:43 vg1 09/16 18:43 Order name: Labs collected and sent; Complete Time: 18:43 vg1 09/16 18:43 Order name: O2 Per Protocol; Complete Time: 18:43 vg1 09/16 18:43 Order name: O2 Sat Monitoring; Complete Time: 18:43 vg1 Administered Medications: 19:20 Drug: fentaNYL (PF) 50 mcg Route: IVP; Site: left hand; vc1 21:15 Follow up: Response: No adverse reaction vc1 19:21 Drug: Lasix (furosemide) 60 mg Route: IVP; Site: left hand; vc1 21:15 Follow up: Response: No adverse reaction; Marked relief of symptoms vc1 21:17 Drug: fentaNYL (PF) 25 mcg Route: IVP; Site: left hand; vc1 21:37 Follow up: Response: No adverse reaction; Marked relief of symptoms; Pain is decreased vc1 Disposition: 09/17 07:25 Co-signature as Attending Physician, Ronald Rouse MD. rn Disposition Summary: 09/16/21 21:07 Discharge Ordered Location: Home [facility] Problem: new jr8 Symptoms: have improved jr8 Condition: Stable jr8 Diagnosis - Chronic combined systolic (congestive) and diastolic (congestive) heart failure jr8 - Chest pain on breathing jr8 Followup: jr8 - With: Silviano Grimes MD - When: Tomorrow - Reason: Recheck today's complaints, Continuance of care, Re-evaluation by your physician Discharge Instructions: - Discharge Summary Sheet jr8 - Nonspecific Chest Pain, Adult jr8 - Heart Failure, Diagnosis jr8 Forms: - Medication Reconciliation Form jr8 - Thank You Letter jr8 - Antibiotic Education jr8 - Prescription Opioid Use jr8 Signatures: Dispatcher [employer] Ronald Faith MD MD rn Roszak, Josh, PA PA jr8 Mita Vazquez RN RN vg1 Madhuri Regan RN RN vc1
[2021-09-16 23:18] VITALS: TEMP 97.9
[2021-09-16 23:20] VITALS: BP 120/86; O2SAT 99
--- NOTE | 2021-09-17 10:16 | EKG ---
Test Date: 2021-09-16 Test Time: 18:36:47 Animal Behaviourist: REGINE MEASUREMENT RESULTS: Intervals: Rate: 92 IA: 148 QRSD: 196 QT: 482 QTc: 596 [place]: P: 70 IA: 148 QRS: -57 T: 81 INTERPRETIVE STATEMENTS: Electronic ventricular pacemaker Compared to ECG 09/10/2021 09:52:21 No significant changes Electronically Signed On 09-17-21 10:14:33 LOCATOR by Silviano Grimes
--- NOTE | 2021-09-17 10:16 | EKG ---
Test Date: 2021-09-16 Test Time: 18:37:25 Textile Cutting Machine Operator: REGINE MEASUREMENT RESULTS: Intervals: Rate: 92 AK: 156 QRSD: 198 QT: 474 QTc: 586 [place]: P: 75 AK: 156 QRS: 133 T: 75 INTERPRETIVE STATEMENTS: Electronic ventricular pacemaker Compared to ECG 09/16/2021 18:36:47 No significant changes Electronically Signed On 09-17-21 10:14:33 CHANGE AGENT by Silviano Grimes
== END 2021-09-16 21:37 | disposition home or self-care (01) ==
LOC: ER 18:28
DX: I50.42 Chronic combined systolic (congestive) and diastolic (congestive) heart failure (principal); E11.9 Type 2 diabetes mellitus without complications; I10 Essential (primary) hypertension; Z95.0 Presence of cardiac pacemaker
CPT/HCPCS: 93005 ×2; 85025; 80048; 36415; 83735; 85610; 80076; 84484 ×2; 83880; 71045; 96375; 96374; 99285; J3010 ×2

== ENCOUNTER 2022-07-13 02:30 | Inpatient (IN) | payer OTHER ==
[2022-07-13] MEDS ORDERED: ACETAMINOPHEN 500 MG TAB ONE (02:45)
[2022-07-13 02:58] LABS: Absolute Lymphocytes (CBC) 2.3 K/uL (0.7-4.9); Hematocrit 37.2 % (39.6-49.0); Lymphocytes % 38.1 % (15.3-44.8); MCV 75.3 fL (80-100); MPV 8.4 fL (7.6-11.3); RBC Red Blood Cell Count 4.93 M/uL (4.33-5.43)
--- OUTSIDE RECORDS SUMMARY | 2022-07-13 02:58 | XMS REPORT | Continuity of Care Document ---
:1965 Author Organization [facility] t Address [address] [place] [address] Support Name Relationship Address Phone MARAL PARADA SI [address] [place] [address] NII ALESIA SI Unavailable VALERY BEAVERS [place] [address] [place] [address] RONALD PARADA OR Unavailable NAHID PARADA Nephew [address] [phone] [address] [place] [address] NAHID PARADA Unavailable [address] [phone] [place] [address] Gayle Jamison Relative [address] [place] [address] Allyson Nolen Sibling [address] [place] [address] Camila Kahn Friend UNK [phone] Annie Joanie Friend Unavailable Naty Parada Child Unavailable LANETTE HENAO Unavailable UNKNWN [phone] [place] [address] PAGE HENAO Unavailable UNKNOWN [phone] [place] [address] GAYLE HARRIS Relative [address] [place] [address] ALLYSON BALES G [address] [place] [address] KANDIS PARADA E [address] Nelly vailable [address] [place] [address] Tamanna Parada, Kandis Child [address] + [phone] [place] [address] Sabas Stewart Unavailable Care Team Providers Name Role Phone Kim Jones MD Primary Care Physician [phone] HAIDER LOPES Attending Clinician Unavailable Ellis Munoz Attending Clinician Unavailable Neftali PERSONAL INJURY SPECIALIST, Jonathan Valderrama Attending Clinician JONATHAN ZAPATA Attending Clinician Unavailable JUAN HERNANDEZ Attending Clinician Unavailable ERNIE WHITMORE Attending Clinician Unavailable Adrianna Fang MD Attending Clinician ADRIANNA FANG Attending Clinician Unavailable Doctor Unassigned, [place] Attending Clinician Unavailable Page Seth RN Attending Clinician Unavailable BJ WEISS Attending Clinician Unavailable Martínez ROSALES, Khanh Attending Clinician Criss Leyva DO Attending Clinician Bj Weiss MD Attending Clinician Cornelia Zamora MD Attending Clinician KIMI LOPEZ Attending Clinician Unavailable Leif BOYER, Kimi De La Vega Attending Clinician Asad Armendariz MD Attending Clinician HALLIE FREEMAN Attending Clinician Unavailable Hallie Freeman MD Attending Clinician [phone] Tarun BAKER, Lilli Saba Attending Clinician MARY REYNAGA Attending Clinician Unavailable Mary Reynaga DO Attending Clinician Kim Jones MD Attending Clinician [phone] Doris Lindsey MD Attending Clinician PRUDENCE COHEN Attending Clinician Unavailable Vicki THOMPSONP, Prudence Attending Clinician Wilberto BOYER, David K.H. Attending Clinician Bartolome BOYER, Sunshine Hernández Attending Clinician BROOKS BARKER Attending Clinician Unavailable BROOKS BARKER Attending Clinician Unavailable KIM JONES Attending Clinician Unavailable Adolfo BAKER, Chelo Attending Clinician Unavailable Prieto Olivares MD Attending Clinician Jacky BOYER, Gino Farmer Attending Clinician SUNSHINE KLEIN Attending Clinician Unavailable SUNSHINE KLEIN Attending Clinician Unavailable Alisa Gonzalez RN Attending Clinician Unavailable PIA WATTS Attending Clinician Unavailable Singer CORTEZ, Pia Attending Clinician CRISS LEYVA Attending Clinician Unavailable Tmoas Mcguire MD Attending Clinician Abilio PERSONAL INJURY SPECIALIST, Denis Attending Clinician Merry BAKER, Erica Choudhary Attending Clinician MIKO MONTALVO Attending Clinician Unavailable JOSEPH DON Attending Clinician Unavailable Joseph Don DO Attending Clinician TONYA CARRION Attending Clinician Unavailable Freedom PERSONAL INJURY SPECIALIST, Folusho F Attending Clinician Steven Ugarte MD Attending Clinician Fran Gamino MD Attending Clinician Tonya Carrion MD Attending Clinician DAVID LADD K.H. Attending Clinician Unavailable Adilene Dumas RN Attending Clinician Unavailable [place], Nephrology Attending Clinician Unavailable , [facility] Sleep Lab Bed Attending Clinician Unavailable Only, [facility] Test Attending Clinician Unavailable Estela BOYER, Rebecca Attending Clinician REBECCA PALMER Attending Clinician Unavailable Homer Wharton DO Attending Clinician Artemio [facility], Nikole Saba Attending Clinician Bret BOYER, Elizabet Sanchez Attending Clinician [phone] Heather BOYER, Juan Pulido Attending Clinician [phone] Visit, [facility] Nurse Attending Clinician Unavailable Mac Miranda MD Attending Clinician Major BAKER, Radha Hernández Attending Clinician Unavailable Maria E Fischer MD Attending Clinician Pob, [facility] Lab Main Attending Clinician Unavailable MARIA E FISCHER Attending Clinician Unavailable Jairo JORDAN Attending Clinician Unavailable Nikki ROGERS K Janny Attending Clinician Oh Espinoza MD Attending Clinician CORNELIA ZAMORA Attending Clinician Unavailable Magdi BAKER, Yvonne Saba Attending Clinician Unavailable Henrique Nguyen Attending Clinician ROBERTO STOKES Attending Clinician Unavailable Romel Burns OT Attending Clinician Unavailable Roberto Stokes MD Attending Clinician Debby Solano S Attending Clinician Ana VALDEZ, Austin W Attending Clinician Unavailable Janiya Alonzo MD Attending Clinician OH ESPINOZA Attending Clinician Unavailable ALICIA TELLEZ Attending Clinician Unavailable ALICIA TELLEZ Attending Clinician Unavailable Rafy Ugarte MD Attending Clinician [phone] RAFY UGARTE Attending Clinician Unavailable Cate Lau MD Attending Clinician CATE LAU Attending Clinician Unavailable UNKNOWN, ATTENDING Attending Clinician Unavailable Unknown, Attending Attending Clinician Unavailable LORETA LESTER Attending Clinician Unavailable Mikayla BAKER, Macy Attending Clinician Unavailable Izaiah Hobbs DO Attending Clinician Kalen Keith MD, Thelma Attending Clinician Israel Morgan MD Attending Clinician Taz Mercedes Attending Clinician FERNANDA DUNCAN Attending Clinician Unavailable MOHSEN MELLO Attending Clinician Unavailable Destiny Pulido Attending Clinician Nurse, Scotty Pob Immunization Attending Clinician Unavailable Mohsen Mello DO Attending Clinician DEBBY JOAQUIN Attending Clinician Unavailable Doris Christensen RN Attending Clinician Unavailable KARINE MONTEZ Attending Clinician Unavailable LUIS ANGEL JIMENEZ Attending Clinician Unavailable Luis Angel Paul Attending Clinician OREN DALAL Attending Clinician Unavailable Sharri BOYER, Oren Attending Clinician Sherrie Taylor NP Attending Clinician Adilene Petersen RN Attending Clinician 1, [facility] Infusion Nurse Attending Clinician Unavailable Nurse, Darío Meek Attending Clinician Unavailable Fran Trinh MD Attending Clinician Jackelyn Obregon Attending Clinician KELLY KNOWLES Attending Clinician Unavailable Stephan Juan Attending Clinician Unavailable Ayush Bee MD Attending Clinician Esteafni Lange MD Attending Clinician DORIS LINDSEY Attending Clinician Unavailable Precious Bae Attending Clinician Unavailable Isac Rouse Attending Clinician Unavailable Yared Scott Attending Clinician Unavailable MILAN SAMUELS Attending Clinician Unavailable Milan Aragon Attending Clinician AYUSH BEE Attending Clinician Unavailable AYUSH BEE Attending Clinician Unavailable CHUCKIE RODRÍGUEZ Attending Clinician Unavailable Benoit Tello Attending Clinician Unavailable EDMUND FOLEY Attending Clinician Unavailable MARIA E WELSH Attending Clinician Unavailable JANICE VINES Attending Clinician Unavailable LISANDRA ADAMS Attending Clinician Unavailable JOSÉ MIGUEL PARKS Attending Clinician Unavailable PEARL Attending Clinician Unavailable JOSE MARLOW Attending Clinician Unavailable DENIS KNOX Attending Clinician Unavailable ABBY COHEN Attending Clinician Unavailable JANIYA ALONZO Attending Clinician Unavailable SALOME GORDON Attending Clinician Unavailable JO RANDLE Attending Clinician Unavailable HAIDER LOPES Admitting Clinician Unavailable BJ WEISS Admitting Clinician Unavailable Bj Weiss MD Admitting Clinician KIMI LOPEZ Admitting Clinician Unavailable HALLIE FREEMAN Admitting Clinician Unavailable Hallie Freeman MD Admitting Clinician [phone] MARY REYNAGA Admitting Clinician Unavailable Gino Flores MD Admitting Clinician GINO FLORES Admitting Clinician Unavailable CRISS LEYVA Admitting Clinician Unavailable Criss Leyva DO Admitting Clinician FRAN GAMINO Admitting Clinician Unavailable PIA WATTS Admitting Clinician Unavailable Oh Espinoza MD Admitting Clinician OH ESPINOZA Admitting Clinician Unavailable Rafy Ugarte MD Admitting Clinician [phone] RAFY UGARTE Admitting Clinician Unavailable Jasmine MD Admitting Clinician SEJAL AFESVIN Admitting Clinician Unavailable Jairo JORDAN Admitting Clinician Unavailable Thelma Mccormack MD Admitting Clinician DEBBY JOAQUIN Admitting Clinician Unavailable LUIS ANGEL JIMENEZ Admitting Clinician Unavailable KIM JONES Admitting Clinician Unavailable OREN DALAL Admitting Clinician Unavailable Oren Dalal MD Admitting Clinician JUAN HERNANDEZ Admitting Clinician Unavailable Juan Hernandez MD Admitting Clinician [phone] Stephan Juan Admitting Clinician Unavailable Physician, No Primary or Family Admitting Clinician UnavailEstefani Hodgson MD Admitting Clinician ESTEFANI LANGE Admitting Clinician Unavailable Precious Bae Admitting Clinician Unavailable Yared Scott Admitting Clinician Unavailable KELLY KNOWLES Admitting Clinician Unavailable Benoit Tello Admitting Clinician Unavailable MARIA E WELSH Admitting Clinician Unavailable LISANDRA ADAMS Admitting Clinician Unavailable JOSÉ MIGUEL PARKS Admitting Clinician Unavailable ADRIANNA SHIRLEY Admitting Clinician Unavailable DENIS KNOX Admitting Clinician Unavailable DORIS LINDSEY Admitting Clinician Unavailable TRISHA LOPES Admitting Clinician Unavailable DAVID LADD Admitting Clinician Unavailable JANIYA ALONZO Admitting Clinician Unavailable Payers Payer Name Policy Type Policy Number Effective Date Expiration Date Kathie mckinley MEDICARE PART A \\T\\ [id number] 2002 B 00:00:00 [facility] [id number] 2022 STAR PLUS 00:00:00 [place]ICAID [place] [id number] 2011 00:00:00 Problems Condition Condition Condition Status Onset Resolution Last Treating Co mments Source Name Details Category Date Date Treatment Clinician Date GIUSEPPE (acute GIUSEPPE (acute Disease Active 2021-08 U inna kidney kidney 1-05 ity of injury) injury) 00:00: [place] [address] Medical Branch Obesity Obesity Disease Active 2021-08 Univers (BMI (BMI 1-05 ity of 30-39.9) 30-39.9) 00:00: [place] [address] Medical Branch Somnolence Somnolence Disease Active 2021-08 U nivers 1-03 ity of 00:00: [place] [address] Medical Branch SOB SOB Disease Active 2021-08 Univers (shortness (shortness 0-31 it y of of breath[place] breath[place] CHF CHF Disease Active 2021-08 Univers (congestiv (congestiv 0-30 it y of e heart e heart 00:00: [place] failure), failure), 00 Medi jennifer NYHA class NYHA class Br anch IV, acute, IV, acute, combined combined Encounter Encounter Disease Active 2021-08 Overview: Univers for for 0-25 Formattin ity of colorectal colorectal 00:00: g of this [place] cancer cancer 00 note Medical screening screening might be Br anch different from the original. Added automatic ally from request for surgery [id number] Acute Acute Disease Active 2021-08 Univers nonintract nonintract 0-09 it y of able able 00:00: [place] headache, headache, 00 Medi jennifer unspecifie unspecifie Br anch d headache d headache type type Chest pain Chest pain Disease Active 2021-08 U nivers of of 0-03 ity of uncertain uncertain 00:[place] etiology etiology 00 Medica l Branch Diverticul Diverticul Disease Active U nivers itis itis 8-27 ity of 00:00: [place] 00 Medical Branch Blood in Blood in Disease Active Unive rs stool stool 8-27 ity of 00:00: [place] 00 Medical Branch Acute on Acute on Disease Active Unive rs chronic chronic 8-04 ity of combined combined 00:00: [place] systolic systolic 00 Medica l and and Branch diastolic diastolic congestive congestive heart heart failure failure Troponin I Troponin I Disease Active U nivers above above 8-04 ity of reference reference 00:00: Alexand[place] s range range 00 Medical Branch Hypertensi Hypertensi Disease Active U nivers ve ve 8-04 ity of emergency emergency 00:[place] Chronic Chronic Disease Active Univers combined combined 8-04 ity of systolic systolic 00:00: [place] and and 00 Medical diastolic diastolic Bran ch congestive congestive heart heart failure failure Chest Chest Disease Active Univers pain, pain, 8-03 ity of unspecifie unspecifie 00:[place] type d type 00 Medical Branch Chest pain Chest pain Disease Active U nivers 5-12 ity of 00:00: [place] 00 Medical Branch Decreased Decreased Disease Active Uni vers activities activities 3-22 it y of of daily of daily 00:00: [place] living living 00 Medical (ADL) (ADL) Branch History of History of Disease Active U nivers cerebrovas cerebrovas 3-22 it y of cular cular 00:00: [place] accident accident 00 Medica l (CVA) with (CVA) with Br anch residual residual deficit deficit PAF PAF Disease Active Univers (paroxysma (paroxysma 3-07 it y of l atrial l atrial 00:00: [place] fibrillati fibrillati 00 Me dical on) on) Branch NSTEMI NSTEMI Disease Active Univers (non-ST (non-ST 2-19 ity of elevated elevated 00:00: [place] myocardial myocardial 00 Me dical infarction infarction Br anch ) ) Left-sided Left-sided Disease Active U nivers weakness weakness 5-17 ity of 00:00: [place] Medical Branch Noncomplia Noncomplia Disease Active U nivers nce nce 5-11 ity of 00:00: [place] [facility] Dyslipidem Dyslipidem Disease Active U nivers ia ia 3-11 ity of 00:00: [place] [facility] Chronic Chronic Disease Active Univers left-sided left-sided 2-12 it y of low back low back 00:00: [place] pain with pain with 00 Medi jennifer sciatica, sciatica, Bran ch sciatica sciatica laterality laterality unspecifie unspecifie d d Cardiac Cardiac Disease Active Univers resynchron resynchron 1-13 it y of ization ization 00:00: [place] therapy therapy 00 Medical defibrilla defibrilla Br anch tor tor ([employer]) in ([employer]D) in place place Heart Heart Disease Recurre Univers block block nce 1-05 ity of 00:00: [place] [facility] Chest pain Chest pain Disease Active U nivers of unknown of unknown 8-31 it y of etiology etiology 00:00: [place] 00 Medical Branch Stage 3 Stage 3 Disease Active Univers chronic chronic 4-18 ity of kidney kidney 00:00: [place] disease disease 00 Medical Branch Diverticul Diverticul Disease Active U nivers osis large osis large 7-20 it y of intestine intestine 00:00[place] w/[place] w/o 00 Medical perforatio perforatio Br anch n or n or abscess abscess w/o w/o bleeding bleeding PRAVEEN on PRAVEEN on Disease Active Univers [...] Disease Active 2014-08 Uni vers syndrome syndrome 1- ity of 00:00: [place] 00 Medical Branch ACC/AHA ACC/AHA Disease Active 2014-08 Univers stage B stage B - ity of congestive congestive 00:00: [place] heart heart 00 Medical failure failure Branch PRAVEEN PRAVEEN Disease Active 2014-08 Univers (obstructi (obstructi 08-23 it y of ve sleep ve sleep 00:00: [place] apnea) apnea) 00 Medical Branch Essential Essential Disease Active 2014-08 Uni vers hypertensi hypertensi 0- it y of on on 00:00: [place] 00 Medical Branch 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 0- ity of mellitus mellitus 00:00: [place] with with 00 Medical complicati complicati Br anch on, on, without without long-term long-term current current use of use of insulin insulin Loss of Loss of Disease Active 2014-08 Univers one eye one eye 0- ity of 00:00: [place] 00 Medical Branch CVA, old, CVA, old, 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 0- it y of s s 00:00: [place] 00 Medical Branch Chronic Chronic Disease Active 2014-08 Univers dental dental 0- ity of pain pain 00:00: [place] 00 Medical Branch Allergies, Adverse Reactions, Alerts Allergy Allergy Status Severity Reaction(s) Onset Inactive Treating Comm ents Source Name Type Date Date Clinician No Known DA Active [facility] Allergie 4-30 Clear s 00:00: [place] 00 [facility] No Known DA Active U [facility] Allergie 4-30 Clear s 00:00: [place] 00 [facility] No Known DA Active U [facility] Allergie 4-29 [place] s 00:00: d 00 [facility] Isosorbi Propensi Active Other - See Severe U nivers de ty to comments 04-04 hypotensi ity o f Mononitr adverse 00:00: on, [place] ate reaction 00 likely Medical s from Branch severe LVH per Dr. Zamora. ISOSORBI DRUG Active Other-Cmnt Univ ers DE INGREDI 04-04 ity of MONONITR 00:00: [place] ATE 00 Medical Branch No Known DA Active U [facility] Allergie 4-10 [place] [facility] 00:00: [place] 00 [facility] Social History Social Habit Start Date Stop Date Quantity Comments Source History SDOH University o f Alcohol Frequency [facility] edical Branch History SDOH University o f Alcohol Std [place] Medical Drinks Branch History SDOH University o f Alcohol Binge [place] Medic al Branch Exposure to 2022-05-26 2022-06-05 Not sure University SARS-CoV-2 00:00:00 15:58:00 [facility] (event) Branch Alcohol intake 2022-06-05 2022-06-05 Ex-drinker [facility] 00:00:00 00:00:00 (finding) [place] [facility] History SDOH 2022-05-28 2022-05-28 2 University o f Transport Med 00:00:00 00:00:00 [place] Medic al Branch History SDOH 2022-05-28 2022-05-28 2 University o f Transport Non-Med 00:00:00 00:00:00 [facility] edical Branch History SDOH 2022-05-12 2022-05-12 5 University o f Financial 00:00:00 00:00:00 [facility] History SDMT Food 2022-05-12 2022-05-12 1 Univers ity of Worry 00:00:00 00:00:00 [facility] Branch History SDMT Food 2022-05-12 2022-05-12 1 Univers ity of Scarcity 00:00:00 00:00:00 [facility] Tobacco use and 2022-02-15 2022-02-15 Smokeless tobacco Un iversity of exposure 00:00:00 00:00:00 non-user [facility] Alcohol Comment 2021-05-22 2021-05-22 1 cup of whiskey Uni versity of 00:00:00 00:00:00 [facility] Education 2020-04-30 2020-04-30 13 [facility] 00:00:00 00:00:00 [facility] Sex [birth year] At [birth year] Universit y of 00:00:00 00:00:00 [facility] Smoking Status Start Date Stop Date Source Never smoked tobacco [facility] Medications Ordered Filled Start Stop Current Ordering Indication Dosage Frequency Signature Comments Components Source Medication Medication Date Date Medication? Clinician (SIG) Name Name carvediloL 2021-08- No 25mg 25 mg, Univ ers (COREG) 08-10 11-07 Oral, ity of tablet 25 00:00: 23:35 ONCE, 1 [place] mg 00 :00 dose, On Medical Mon Branch 06/09/22 at 1800, Routine tiZANidine 2021-08 Yes 2mg Take 2 mg Un dino 2 mg tablet 1-07 by mouth ity of 18:34: every 8 [place] [address] (eight) Medical hours as Branch needed. carvediloL 2021-08 Yes 25mg Take 25 mg U nivers 25 mg 1-07 by mouth ity of tablet 18:34: in the [place] [address] morning Medical and 25 mg Branch in the evening. Take with meals. tiZANidine 2021-08 Yes 2mg Take 2 mg Un dino 2 mg tablet 1-07 by mouth ity of 18:34: every 8 [place] [address] (eight) Medical hours as Branch needed. carvediloL 2021-08 Yes 25mg Take 25 mg U nivers 25 mg 1-07 by mouth ity of tablet 18:34: in the [place] [address] morning Medical and 25 mg Branch in the evening. Take with meals. tiZANidine 2021-08 Yes 2mg Take 2 mg Un dino 2 mg tablet 1-07 by mouth ity of 18:34: every 8 [place] [address] (eight) Medical hours as Branch needed. carvediloL 2021-08 Yes 25mg Take 25 mg U nivers 25 mg 1-07 by mouth ity of tablet 18:34: in the [place] [address] morning Medical and 25 mg Branch in the evening. Take with meals. tiZANidine 2021-08 Yes 2mg Take 2 mg Un dino 2 mg tablet 1-07 by mouth ity of 18:34: every 8 [place] [address] (eight) Medical hours as Branch needed. carvediloL 2021-08 Yes 25mg Take 25 mg U nivers 25 mg 1-07 by mouth ity of tablet 18:34: in the [place] [address] morning Medical and 25 mg Branch in the evening. Take with meals. tiZANidine 2021-08 Yes 2mg Take 2 mg Un dino 2 mg tablet 1-07 by mouth ity of 18:34: every 8 [place] [address] (eight) Medical hours as Branch needed. carvediloL 2021-08 Yes 25mg Take 25 mg U nivers 25 mg 1-07 by mouth ity of tablet 18:34: in the [place] 04 morning Medical and 25 mg Branch in the evening. Take with meals. tiZANidine 2021-08 Yes 2mg Take 2 mg Un dino 2 mg tablet 1-07 by mouth ity of 18:34: every 8 [place] 04 (eight) Medical hours as Branch needed. carvediloL 2021-08 Yes 25mg Take 25 mg U nivers 25 mg 1-07 by mouth ity of tablet 18:34: in the [place] 04 morning Medical and 25 mg Branch in the evening. Take with meals. apixaban 2021-08 Yes 1358 2.5mg Take 1 Univer s 2.5 mg 1-07 tablet by ity of tablet 00:00: mouth in [place] [address] the Medical morning Branch and 1 tablet in the evening. Indication s: atrial fibrillati on apixaban 2021-08 Yes 1358 2.5mg Take 1 Univer s 2.5 mg 1-07 tablet by ity of tablet 00:00: mouth in [place] [address] the Medical morning Branch and 1 tablet in the evening. Indication s: atrial fibrillati on apixaban 2021-08 Yes 1358 2.5mg Take 1 Univer s 2.5 mg 1-07 tablet by ity of tablet 00:00: mouth in [place] [address] the Medical morning Branch and 1 tablet in the evening. Indication s: atrial fibrillati on apixaban 2021-08 Yes 1358 2.5mg Take 1 Univer s 2.5 mg 1-07 tablet by ity of tablet 00:00: mouth in [place] [address] the Medical morning Branch and 1 tablet in the evening. Indication s: atrial fibrillati on apixaban 2021-08 Yes 1358 2.5mg Take 1 Univer s 2.5 mg 1-07 tablet by ity of tablet 00:00: mouth in [place] 00 the Medical morning Branch and 1 tablet in the evening. Indication s: atrial fibrillati on apixaban 2021-08 Yes 1358 2.5mg Take 1 Univer s 2.5 mg 1-07 tablet by ity of tablet 00:00: mouth in [place] [address] the Medical morning Branch and 1 tablet in the evening. Indication s: atrial fibrillati on NaCl 0.9% 2021-08 Yes at 75 Univers (NS) IV 1-06 mL/hr, IV ity of infusion 04:45: [place] 00 CONTINUOUS Medical , Starting Branch on 06/07/22 at 2345, Until Discontinu ed, Routine apixaban 2021-08 Yes 1358 2.5mg 2.5 mg, Unive rs (ELIQUIS) 1-06 Oral, BID, ity of tablet 2.5 01:00: First dose [place] mg 00 (after Medical last Branch modificati on) on 06/07/22 at 2000, Until Discontinu ed, Routine
Indicatio ns: Non-Valvul ar Atrial Fibrillati on Sliding 2021-08 Yes Subcutaneo Univ ers Scale 1-05 us, TID ity of Insulin - 17:00: MEALS+HS, [place] as Lispro 00 First dose Medical (HumaLOG) + on Sat Branch Fsbg 06/07/22 at Testing 1200, Until Discontinu ed, Routine NaCl 0.9% 2021-08- No 1000mL at 75 Univ ers (NS) bolus 1-05 11-05 mL/hr, ity of infusion 15:30: 23:27 1,000 mL, [place] as 1,000 mL 00 :00 IV Medical Piggyback, Branch ONCE, 1 dose, On 06/07/22 at 1030, STAT NaCl 0.9% 2021-08- No 500mL at 999 Univ ers (NS) bolus 1-05 11-05 mL/hr, 500 it y of infusion 14:00: 13:26 mL, IV [place] 500 mL 00 :44 Piggyback, Medical ONCE, 1 Branch dose, On 06/07/22 at 0900, STAT glucagon 2021-08 Yes 1mg 1 mg, Univers (GLUCAGEN 1-05 Intramuscu ity of DIAGNOSTIC 13:02: [place], [place]N, [place] KIT) 13 Starting Medical injection 1 on Sat Branch mg 06/07/22 at 0802, Until Discontinu ed, MJ, Blood Glucose < or = 70 mg/dL and patient is unable to swallow or has mental changes. dextrose 50 2021-08 Yes 25mL 25 mL, Univ ers % in water 1-05 Slow IV ity of (D50W) 13:02: Push, PRN, [place] injection 13 Starting Medica l 25 mL on Thu Branch 06/07/22 at 0802, Until Discontinu ed, MJ, Blood Glucose < or = 70 mg/dL and patient is unable to swallow or has mental status changes. proMETHazin 2021-08 Yes 25mg 25 mg, IV U nivers e 08-06 Piggyback, ity of (PHENERGAN) 15:17: Q4HPRN, [place] as 25 mg in 15 Starting Medical NaCl 0.9% on Thu Branch (NS) 50 mL 06/06/22 at IV 1017, piggyback Until Discontinu ed, Routine, Nausea and Vomiting (N/V), N/V unresponsi ve to Ondansetro n omeprazole 2021-08 Yes 40mg 40 mg, Unive rs (PRILOSEC) 08-06 Oral, ity of capsule 40 14:00: DAILY, [place] mg 00 First dose Medical on Thu Branch 06/06/22 at 0900, Until Discontinu ed aspirin EC 2021-08 Yes 81mg 81 mg, Un[facility] rs tablet 81 08-06 Oral, ity of mg 14:00: DAILY, [place] 00 First dose Medical on Thu Branch 06/06/22 at 0900, Until Discontinu ed, Routine bumetanide 2021-08- No 4mg 4 mg, Unive rs (BUMEX) 08-06 Oral, ity of tablet 4 mg 14:00: 05:10 DAILY, [place] 00 :36 First dose Medical on Thu Branch 06/06/22 at 0900, Until Discontinu ed, Routine spironolact 2021-08- No 25mg 25 mg, Uni vers one 08-06 Oral, ity of (ALDACTONE) 14:00: 05:10 DAILY, [place] tablet 25 00 :36 First dose Medi jennifer mg on Thu Branch 06/06/22 at 0900, Until Discontinu ed, Routine lisinopriL 2021-08- No 2.5mg 2.5 mg, Un dino (PRINIVIL,Z 08-06 Oral, ity of ESTRIL) 14:00: 21:33 DAILY, [place] tablet 2.5 00 :34 First dose Med ical mg on Thu Branch 06/06/22 at 0900, Until Discontinu ed, Routine carvediloL 2021-08 No 25mg 25 mg, Univ ers (COREG) 08-06 Oral, BID ity of tablet 25 13:00: 05:10 MEALS, [place] mg 00 :36 First dose Medical on Thu Branch 06/06/22 at 0800, Until Discontinu ed, Routine glipiZIDE 2021-08 No 2.5mg 2.5 mg, Uni vers (GLUCOTROL) 08-06 Oral, ity of tablet 2.5 12:30: 13:02 BIDAC, [place] mg 00 :42 First dose Medical (after Branch last modificati on) on Thu06/06/22 at 0730, Until Discontinu ed, Routine NaCl 0.9% 2021-08 No 500mL at 20 Unive rs (NS) IV 08-06 mL/hr, IV ity of infusion 04:30: 12:34 Infusion, [place] 500 mL 00 :35 CONTINUOUS Medical , Starting Branch on Thu06/05/22 at 2330, Until Thu06/06/22 at 0734, Routine atorvastati 2021-08 Yes 80mg 80 mg, Univ ers n (LIPITOR) 08-06 Oral, QHS, it y of tablet 80 02:00: First dose [place] mg 00 on [facility] 06/05/22 at Branch 2100, Until Discontinu ed, Routine ondansetron 2021-08 Yes 4mg 4 mg, Slow Univers (ZOFRAN 08-06 IV Push, ity of (PF)) 01:37: Q6HPRN, [place] injection 4 42 Nausea and Me dical mg Vomiting Branch (N/V), Starting on Thu06/05/22 at 2037
Do ses of ondansetro n 16 mg and above need to be administer ed via IV piggyback. For Dose >=24mg ECG monitoring is advisable.
bumetanide 2021-08 No 3mg 3 mg, Unive rs (BUMEX) 08-06 Oral, QPM ity of tablet 3 mg 01:00: 05:10 AT 2000, [place] 00 :35 First dose Medical on [facility] 06/05/22 at 2000, Until Discontinu ed, Routine apixaban 2021-08- No 1358 5mg 5 mg, Univers (ELIQUIS) 08-0605 Oral, BID, ity of tablet 5 mg 01:00: 14:38 First dose [place] 00 :03 on [facility] 06/05/22 at Branch 1999, Until Discontinu ed, Routine
Indicatio ns: Non-Valvul ar Atrial Fibrillati on acetaminoph 2021-08 Yes 650mg 650 mg, Un dino en 08-05 Oral, ity of (TYLENOL) 23:47: Q6HPRN, [place] tablet 650 33 Starting Medic al mg on [facility] 06/05/22 at 1847, Until Discontinu ed, Routine, Pain (scale 1-3) tiZANidine 2021-08 Yes 2mg Take 2 mg Un dino 2 mg tablet 03 by mouth ity of 19:33: every 8 [place] 24 (eight) Medical hours as Branch needed. carvediloL 2021-08 Yes 25mg Take 25 mg U nivers 25 mg 08-05 by mouth ity of tablet 19:33: in the [place] 24 morning Medical and 25 mg Branch in the evening. Take with meals. HYDROcodone 2021-08- No 1{tbl} 1 tablet, Univers -acetaminop 08-04 Oral, ity of hen (NORCO 13:45: 13:00 ONCE, 1 [place] 5) 5-325 mg 00 :00 dose, On Medi jennifer tablet Thu Branch tablet 06/04/22 at 0845, Routine tiZANidine 2021-08 Yes 2mg Take 2 mg Un dino 2 mg tablet 08-03 by mouth ity of 11:37: every 8 [place] 59 (eight) Medical hours as Branch needed. carvediloL 2021-08 Yes 25mg Take 25 mg U nivers 25 mg 08-03 by mouth ity of tablet 11:37: in the [place] 59 morning Medical and 25 mg Branch in the evening. Take with meals. tiZANidine 2021-08 Yes 2mg Take 2 mg Un dino 2 mg tablet 08-03 by mouth ity of 11:37: every 8 [place] 59 (eight) Medical hours as Branch needed. carvediloL 2021-08 Yes 25mg Take 25 mg U nivers 25 mg 1-01 by mouth ity of tablet 11:37: in the [place] [address] morning Medical and 25 mg Branch in the evening. Take with meals. tiZANidine 2021-08 Yes 2mg Take 2 mg Un dino 2 mg tablet 1-01 by mouth ity of 11:37: every 8 [place] [address] (eight) Medical hours as Branch needed. carvediloL 2021-08 Yes 25mg Take 25 mg U nivers 25 mg 1-01 by mouth ity of tablet 11:37: in the [place] [address] morning Medical and 25 mg Branch in the evening. Take with meals. tiZANidine 2021-08 Yes 2mg Take 2 mg Un dino 2 mg tablet 1-01 by mouth ity of 11:37: every 8 [place] [address] (eight) Medical hours as Branch needed. carvediloL 2021-08 Yes 25mg Take 25 mg U nivers 25 mg 1-01 by mouth ity of tablet 11:37: in the [place] [address] morning Medical and 25 mg Branch in the evening. Take with meals. lisinopriL 2021-08- Yes [id number] 2.5mg Take 1 Univers 2.5 mg 08-03 9109 tablet by ity of tablet 00:00: 05:59 mouth in [place] 00 :00 the [facility] for 30 days. lisinopriL 2021-08- Yes [id number] 2.5mg Take 1 Univers 2.5 mg 08-03 9109 tablet by ity of tablet 00:00: 05:59 mouth in [place] 00 :00 the [facility] for 30 days. lisinopriL 2021-08- Yes [id number] 2.5mg Take 1 Univers 2.5 mg 08-03 9109 tablet by ity of tablet 00:00: 05:59 mouth in [place] 00 :00 the [facility] morning Branch for 30 days. lisinopriL 2021-08- Yes [id number] 2.5mg Take 1 Univers 2.5 mg 08-03 9109 tablet by ity of tablet 00:00: 05:59 mouth in [place] 00 :00 the [facility] for 30 days. lisinopriL 2021-08- Yes [id number] 2.5mg Take 1 Univers 2.5 mg 08-03 9109 tablet by ity of tablet 00:00: 05:59 mouth in [place] 00 :00 [facility] for 30 days. lisinopriL 2021-08- Yes [id number] 2.5mg Take 1 Univers 2.5 mg 08-03 9109 tablet by ity of tablet 00:00: 05:59 mouth in [place] 00 :00 [facility] for 30 days. lisinopriL 2021-08- Yes [id number] 2.5mg Take 1 Univers 2.5 mg 08-03 9109 tablet by ity of tablet 00:00: 05:59 mouth in [place] 00 :00 [facility] for 30 days. lisinopriL 2021-08- Yes [id number] 2.5mg Take 1 Univers 2.5 mg 08-03 9109 tablet by ity of tablet 00:00: 05:59 mouth in [place] 00 :00 [facility] for 30 days. lisinopriL 2021-08- Yes [id number] 2.5mg Take 1 Univers 2.5 mg 08-03 9109 tablet by ity of tablet 00:00: 05:59 mouth in [place] 00 :00 [facility] for 30 days. lisinopriL 2021-08- Yes [id number] 2.5mg Take 1 Univers 2.5 mg 08-03 9109 tablet by ity of tablet 00:00: 05:59 mouth in [place] 00 :00 [facility] for 30 days. bumetanide 2021-08 Yes 4mg 4 mg, Univer s (BUMEX) 0-31 Oral, Q6H ity of tablet 4 mg 16:00: ABX, First 00 dose Medical (after Branch last modificati on) on Thu06/02/22 at 1100, Until Discontinu ed, Routine metOLazone 2021-08 Yes 5mg 5 mg, Univer s (ZAROXOLYN) 0-31 Oral, ity of tablet 5 mg 14:00: QAM+PM, [place] 00 First dose Medical on Thu Branch 06/02/22 at 0900, Until Discontinu ed, Routine lisinopriL 2021-08 Yes 2.5mg 2.5 mg, Uni vers (PRINIVIL,Z 0-31 Oral, ity of ESTRIL) 14:00: DAILY, [place] tablet 2.5 00 First dose Med ical mg on [facility] 06/02/22 at 0900, Until Discontinu ed, Routine omeprazole 2021-08 Yes 40mg 40 mg, Unive rs (PRILOSEC) 0-31 Oral, ity of capsule 40 14:00: DAILY, [place] mg 00 First dose Medical on [facility] 06/02/22 at 0900, Until Discontinu ed magnesium 2021-08 Yes 400mg 400 mg, Univ ers oxide 0-31 Oral, ity of (MAG-OX 14:00: DAILY, [place] 400) tablet 00 First dose Me dical 400 mg on Thu [place] 06/02/22 at 0900, Until Discontinu ed docusate 2021-08 Yes 100mg 100 mg, Unive rs (COLACE) 0-31 Oral, ity of capsule 100 14:00: DAILY, [place] mg 00 First dose Medical on [facility] 06/02/22 at 0900, Until Discontinu ed aspirin EC 2021-08 Yes 81mg 81 mg, Unive rs tablet 81 0-31 Oral, ity of mg 14:00: DAILY, [place] 00 First dose Medical on [facility] 06/02/22 at 0900, Until Discontinu ed, Routine Sliding 2021-08 Yes Subcutaneo Univ ers Scale 0-31 us, TID ity of Insulin - 13:00: MEALS, [place] Lispro 00 First dose Medical (HumaLOG) + (after Branch Fsbg last Testing modificati on) on Thu06/02/22 at 0800, Until Discontinu ed, Routine bumetanide 2021-08- No 4mg 4 mg, Unive rs (BUMEX) 0-31 10-31 Oral, ity of tablet 4 mg 08:30: 13:29 Q6HA, [place] 00 :27 First dose Medical (after Branch last modificati on) on Thu06/02/22 at 0330, Until Discontinu ed, Routine spironolact 2021-08 Yes 25mg 25 mg, Univ ers one 0-31 Oral, BID, ity of (ALDACTONE) 06:00: First dose [place] tablet 25 00 (after Medical mg last Branch modificati on) on Thu06/02/22 at 0100, Until Discontinu ed, Routine ipratropium 2021-08 Yes 3mL 3 mL, Unive rs -albuteroL 0-31 Inhalation ity of (DUONEB) 05:40: , QIDPRN, [place] 0.5 mg-3 49 Starting Medical mg(2.5 mg on [facility] base)/3 mL 06/02/22 nebulizer at 0040, solution 3 Until mL Discontinu ed, Routine, Wheezing, Bronchospa sm, Shortness of Breath zolpidem 2021-08 Yes 5mg 5 mg, Univers (AMBIEN) 0-31 Oral, ity of tablet 5 mg 04:02: QHSPRN, [place] 27 Starting Medical on [facility] 06/01/22 at 2302, Until Discontinu ed, Routine, Insomnia morpHINE (2 2021-08 Yes 2mg 2 mg, Slow Univers mg/mL) 0-31 IV Push, ity of injection 2 04:02: Q4HPRN, [place] mg 22 Starting Medical on [facility] 06/01/22 at 2302, Until Discontinu ed, Routine, Pain (scale 7-10) atorvastati 2021-08 Yes 80mg 80 mg, Univ ers n (LIPITOR) 0-31 Oral, QHS, it y of tablet 80 02:00: First dose [place] mg 00 on [facility] 06/01/22 Branch at 2100, Until Discontinu ed, Routine apixaban 2021-08 Yes 1358 5mg 5 mg, Univers (ELIQUIS) 0-31 Oral, BID, ity of tablet 5 mg 01:00: First dose [place] 00 on [facility] 06/01/22 Branch at 2000, Until Discontinu ed, Routine
Indicatio ns: Non-Valvul ar Atrial Fibrillati on carvediloL 2021-08 Yes 25mg 25 mg, Unive rs (COREG) 0-30 Oral, BID ity of tablet 25 22:00: MEALS, [place] mg 00 First dose Medical on [facility] 06/01/22 at 1700, Until Discontinu ed, Routine bumetanide 2021-08 No 3mg 3 mg, Unive rs (BUMEX) 0-30 10-31 Oral, QPM, ity o f tablet 3 mg 22:00: 05:50 First dose [place] 00 :58 on [facility] 06/01/22 Branch at 1700, Until Discontinu ed, Routine glipiZIDE 2021-08 No 5mg 5 mg, Univer s (GLUCOTROL) 0-30 10-31 Oral, ity of tablet 5 mg 21:30: 05:50 BIDAC, [place] 00 :58 First dose Medical on [facility] 06/01/22 at 1630, Until Discontinu ed, Routine glucagon 2021-08 Yes 1mg 1 mg, Univers (GLUCAGEN 0-30 Intramuscu ity of DIAGNOSTIC 21:11: [place], PRN, [place] KIT) 01 Starting Medical injection 1 on [facility] 06/01/22 at 1611, Until Discontinu ed, MJ, Blood Glucose < or = 70 mg/dL and patient is unable to swallow or has mental changes. dextrose 50 2021-08 Yes 25mL 25 mL, Univ ers % in water 0-30 Slow IV ity of (D50W) 21:11: Push, PRN, [place] injection 01 Starting Medica l 25 mL on [facility] 06/01/22 at 1611, Until Discontinu ed, MJ, Blood Glucose < or = 70 mg/dL and patient is unable to swallow or has mental status changes. ondansetron 2021-08 Yes 4mg 4 mg, Slow Univers (ZOFRAN 0-30 IV Push, ity of (PF)) 20:32: Q6HPRN, [place] injection 4 46 Starting Medi jennifer mg on [facility] 06/01/22 at 1532, Until Discontinu ed, Routine, Nausea and Vomiting (N/V) acetaminoph 2021-08 Yes 650mg 650 mg, Un dino en 0-30 Oral, ity of (TYLENOL) 20:30: Q6HPRN, [place] tablet 650 48 Starting Medic al mg on [facility] 06/01/22 at 1530, Until Discontinu ed, Routine, Pain (scale 1-3) furosemide 2021-08 No 40mg 40 mg, IV U nivers (LASIX) 0-30 10-30 Push, ity of injection 18:45: 18:53 ONCE, 1 [place] 40 mg 00 :00 dose, On Medical [facility] 06/01/22 at 1345, MJ carvediloL 2021-08 Yes 25mg Take 25 mg U nivers 25 mg 0-30 by mouth ity of tablet 16:31: in the [place] morning Medical and 25 mg Branch in the evening. Take with meals. carvediloL 2021-08 Yes 25mg Take 25 mg U nivers 25 mg 0-30 by mouth ity of tablet 16:31: in the [place] 23 morning Medical and 25 mg Branch in the evening. Take with meals. tiZANidine 2021-08 Yes 2mg Take 2 mg Un dino 2 mg tablet 0-30 by mouth ity of 15:34: every 8 [place] 08 (eight) Medical hours as Branch needed. tiZANidine 2021-08 Yes 2mg Take 2 mg Un dino 2 mg tablet 0-30 by mouth ity of 15:34: every 8 [place] 08 (eight) Medical hours as Branch needed. tiZANidine 2021-08 Yes 2mg Take 2 mg Un dion 2 mg tablet 0-26 by mouth ity of 13:38: every 8 [place] [address] (eight) Medical hours as Branch needed. carvediloL 2021-08 Yes 25mg Take 25 mg U nivers 25 mg 0-26 by mouth ity of tablet 13:38: in the [place] morning Medical and 25 mg Branch in the evening. Take with meals. tiZANidine 2021-08 Yes 2mg Take 2 mg Un dino 2 mg tablet 0-26 by mouth ity of 13:38: every 8 [place] (eight) Medical hours as Branch needed. carvediloL 2021-08 Yes 25mg Take 25 mg U nivers 25 mg 0-26 by mouth ity of tablet 13:38: in the [place] morning Medical and 25 mg Branch in the evening. Take with meals. tiZANidine 2021-08 Yes 2mg Take 2 mg Un dino 2 mg tablet 0-26 by mouth ity of 06:31: every 8 [place] [address] (eight) Medical hours as Branch needed. carvediloL 2021-08 Yes 25mg Take 25 mg U nivers 25 mg 0-26 by mouth ity of tablet 06:31: in the [place] morning Medical and 25 mg Branch in the evening. Take with meals. iopamidol 2021-08- No [id number] 74mL 74 mL, U nivers (ISOVUE 0-20 10-20 Intravenou ity o f 370-500 mL) 18:45: 18:45 s, ONCE, 1 [place] injection 00 :00 dose, On Medica l 74 mL [facility] 05/22/22 at 1345, Routine pantoprazol 2021-08- No 80mg 80 mg, IV Univers e 0-20 10-20 Push, ity of (PROTONIX) 17:15: 17:17 ONCE, 1 [place] 80 mg in 00 :00 dose, On Medical NaCl 0.9% [place] [facility] (NS) 20 mL 05/22/22 syringe at 1215, Administer over 2 Minutes, 20 mL amoxicillin 2021-08- No [id number] 1{tbl} Take 1 Univers -clavulanat 0-20 11-01 tablet by it y of e 875-125 00:00: 00:00 mouth [place] mg per 00 :00 every 12 Medical tablet (twelve) Branch hours for 10 days. amoxicillin 2021-08- Yes [id number] 1{tbl} Take 1 Univers -clavulanat 0-20 10-31 tablet by it y of e 875-125 00:00: 04:59 mouth [place] mg per 00 :00 every 12 Medical tablet (twelve) Branch hours for 10 days. amoxicillin 2021-08- Yes [id number] 1{tbl} Take 1 Univers -clavulanat 0-20 10-31 tablet by it y of e 875-125 00:00: 04:59 mouth [place] mg per 00 :00 every 12 Medical tablet (twelve) Branch hours for 10 days. amoxicillin 2021-08- Yes [id number] 1{tbl} Take 1 Univers -clavulanat 0-20 10-31 tablet by it y of e 875-125 00:00: 04:59 mouth [place] mg per 00 :00 every 12 Medical tablet (twelve) Branch hours for 10 days. amoxicillin 2021-08- Yes [id number] 1{tbl} Take 1 Univers -clavulanat 0-20 10-31 tablet by it y of e 875-125 00:00: 04:59 mouth [place] mg per 00 :00 every 12 Medical tablet (twelve) Branch hours for 10 days. hydralAZINE 2021-08- No 20mg 20 mg, Uni vers (APRESOLINE 0-18 10-18 Slow IV ity of ) injection 18:30: 17:45 Push, [place] 20 mg 00 :00 ONCE, 1 Medical dose, On Branch 05/20/22 at 1330, STAT cloNIDine 2021-08- No .2mg 0.2 mg, Univ ers (CATAPRES) 0-18 10-18 Oral, ity of tablet 0.2 17:45: 17:45 ONCE, 1 [place] mg 00 :00 dose, On Medical Tue Branch 05/20/22 at 1245, STAT dapaglifloz 2021-08- Yes [id number] 10mg Take 1 Univers in 10 mg 0-14 11-14 9103 tablet by ity o f tablet 00:00: 05:59 mouth in [place] 00 :00 [facility] for 30 days. dapaglifloz 2021-08- Yes [id number] 10mg Take 1 Univers in 10 mg 0-14 11-14 9103 tablet by ity o f tablet 00:00: 05:59 mouth in [place] 00 :00 [facility] for 30 days. dapaglifloz 2021-08- Yes [id number] 10mg Take 1 Univers in 10 mg 0-14 11-14 9103 tablet by ity o f tablet 00:00: 05:59 mouth in [place] 00 :00 [facility] for 30 days. dapaglifloz 2021-08- Yes [id number] 10mg Take 1 Univers in 10 mg 0-14 11-14 9103 tablet by ity o f tablet 00:00: 05:59 mouth in [place] 00 :00 [facility] for 30 days. dapaglifloz 2021-08- Yes [id number] 10mg Take 1 Univers in 10 mg 0-14 11-14 9103 tablet by ity o f tablet 00:00: 05:59 mouth in [place] 00 :00 [facility] for 30 days. dapaglifloz 2021-08- Yes [id number] 10mg Take 1 Univers in 10 mg 0-14 11-14 9103 tablet by ity o f tablet 00:00: 05:59 mouth in [place] 00 :00 [facility] for 30 days. dapaglifloz 2021-08- Yes [id number] 10mg Take 1 Univers in 10 mg 0-14 11-14 9103 tablet by ity o f tablet 00:00: 05:59 mouth in [place] 00 :00 [facility] for 30 days. dapaglifloz 2021-08- Yes [id number] 10mg Take 1 Univers in 10 mg 0-14 11-14 9103 tablet by ity o f tablet 00:00: 05:59 mouth in [place] 00 :00 [facility] for 30 days. dapaglifloz 2021-08- Yes [id number] 10mg Take 1 Univers in 10 mg 0-14 11-14 9103 tablet by ity o f tablet 00:00: 05:59 mouth in [place] 00 :00 [facility] for 30 days. dapaglifloz 2021-08- Yes [id number] 10mg Take 1 Univers in 10 mg 0-14 11-14 9103 tablet by ity o f tablet 00:00: 05:59 mouth in [place] 00 :00 [facility] for 30 days. dapaglifloz 2021-08- Yes [id number] 10mg Take 1 Univers in 10 mg 0-14 -14 9103 tablet by ity o f tablet 00:00: 05:59 mouth in [place] 00 :00 [facility] for 30 days. dapaglifloz 2021-08- Yes [id number] 10mg Take 1 Univers in 10 mg 0-14 11-14 9103 tablet by ity o f tablet 00:00: 05:59 mouth in [place] 00 :00 [facility] for 30 days. dapaglifloz 2021-08- Yes [id number] 10mg Take 1 Univers in 10 mg 0-14 11-14 9103 tablet by ity o f tablet 00:00: 05:59 mouth in [place] 00 :00 [facility] for 30 days. dapaglifloz 2021-08- Yes [id number] 10mg Take 1 Univers in 10 mg 0-14 11-14 9103 tablet by ity o f tablet 00:00: 05:59 mouth in [place] 00 :00 [facility] for 30 days. dapaglifloz 2021-08- Yes [id number] 10mg Take 1 Univers in 10 mg 0-14 11-14 9103 tablet by ity o f tablet 00:00: 05:59 mouth in [place] 00 :00 the [facility] Branch for 30 days. dapaglifloz 2021-08- Yes [id number] 10mg Take 1 Univers in 10 mg 0-14 11-14 9103 tablet by ity o f tablet 00:00: 05:59 mouth in [place] 00 :00 the [facility] Branch for 30 days. dapaglifloz 2021-08- Yes [id number] 10mg Take 1 Univers in 10 mg 0-14 11-14 9103 tablet by ity o f tablet 00:00: 05:59 mouth in [place] 00 :00 the [facility] for 30 days. dapaglifloz 2021-08- Yes [id number] 10mg Take 1 Univers in 10 mg 0-14 11-14 9103 tablet by ity o f tablet 00:00: 05:59 mouth in [place] 00 :00 the [facility] for 30 days. dapaglifloz 2021-08- Yes [id number] 10mg Take 1 Univers in 10 mg 0-14 11-14 9103 tablet by ity o f tablet 00:00: 05:59 mouth in [place] 00 :00 [facility] for 30 days. dapaglifloz 2021-08- Yes [id number] 10mg Take 1 Univers in 10 mg 0-14 11-14 9103 tablet by ity o f tablet 00:00: 05:59 mouth in [place] 00 :00 the [facility] for 30 days. dapaglifloz 2021-08- Yes [id number] 10mg Take 1 Univers in 10 mg 0-14 11-14 9103 tablet by ity o f tablet 00:00: 05:59 mouth in [place] 00 :00 the [facility] for 30 days. dapaglifloz 2021-08- Yes [id number] 10mg Take 1 Univers in 10 mg 0-14 11-14 9103 tablet by ity o f tablet 00:00: 05:59 mouth in [place] 00 :00 the [facility] for 30 days. predniSONE 2021-08- Yes [id number] Take 2 Univers 10 mg 0-14 10-24 9103 tablets by ity of tablet 00:00: 04:59 mouth [place] 00 :00 daily for Medical 3 days, Branch THEN 1 tablet daily for 3 days, THEN 0.5 tablets daily for 3 days. predniSONE 2021-08- Yes [id number] Take 2 Univers 10 mg 0-14 10-24 9103 tablets by ity of tablet 00:00: 04:59 mouth [place] 00 :00 daily for Medical 3 days, Branch THEN 1 tablet daily for 3 days, THEN 0.5 tablets daily for 3 days. predniSONE 2021-08- Yes [id number] Take 2 Univers 10 mg 0-14 10-24 9103 tablets by ity of tablet 00:00: 04:59 mouth [place] 00 :00 daily for Medical 3 days, Branch THEN 1 tablet daily for 3 days, THEN 0.5 tablets daily for 3 days. predniSONE 2021-08- Yes [id number] Take 2 Univers 10 mg 0-14 10-24 9103 tablets by ity of tablet 00:00: 04:59 mouth [place] 00 :00 daily for Medical 3 days, Branch THEN 1 tablet daily for 3 days, THEN 0.5 tablets daily for 3 days. predniSONE 2021-08- Yes [id number] Take 2 Univers 10 mg 0-14 10-24 9103 tablets by ity of tablet 00:00: 04:59 mouth [place] 00 :00 daily for Medical 3 days, Branch THEN 1 tablet daily for 3 days, THEN 0.5 tablets daily for 3 days. predniSONE 2021-08- Yes [id number] Take 2 Univers 10 mg 0-14 10-24 9103 tablets by ity of tablet 00:00: 04:59 mouth [place] 00 :00 daily for Medical 3 days, Branch THEN 1 tablet daily for 3 days, THEN 0.5 tablets daily for 3 days. predniSONE 2021-08- Yes [id number] Take 2 Univers 10 mg 0-14 10-24 9103 tablets by ity of tablet 00:00: 04:59 mouth [place] 00 :00 daily for Medical 3 days, Branch THEN 1 tablet daily for 3 days, THEN 0.5 tablets daily for 3 days. predniSONE 2021-08- Yes [id number] Take 2 Univers 10 mg 0-14 10-24 9103 tablets by ity of tablet 00:00: 04:59 mouth [place] 00 :00 daily for Medical 3 days, Branch THEN 1 tablet daily for 3 days, THEN 0.5 tablets daily for 3 days. predniSONE 2021-08- Yes [id number] Take 2 Univers 10 mg 0-14 10-24 9103 tablets by ity of tablet 00:00: 04:59 mouth [place] 00 :00 daily for Medical 3 days, Branch THEN 1 tablet daily for 3 days, THEN 0.5 tablets daily for 3 days. predniSONE 2021-08- No [id number] Take 2 Univers 10 mg 0-14 10-24 9103 tablets by ity of tablet 00:00: 04:59 mouth [place] 00 :00 daily for Medical 3 days, Branch THEN 1 tablet daily for 3 days, THEN 0.5 tablets daily for 3 days. predniSONE 2021-08- No [id number] Take 2 Univers 10 mg 0-14 10-24 9103 tablets by ity of tablet 00:00: 04:59 mouth [place] 00 :00 daily for Medical 3 days, Branch THEN 1 tablet daily for 3 days, THEN 0.5 tablets daily for 3 days. sacubitriL- 2021-08- No [id number] 1{tbl} Take 1 Univers valsartan 0-14 10-13 9103 tablet by ity of (ENTRESTO) 00:00: 00:00 mouth in [place] 24-26 mg 00 :00 the Medical tablet morning Branch and 1 tablet in the evening. Do all this for 30 days. bumetanide 2021-08 Yes 3mg 3 mg, Univer s (BUMEX) 0-13 Oral, QPM, ity of tablet 3 mg 22:00: First dose 00 on [facility] Medical 05/15/22 Branch [facility] 1700[facility]08 Yes 2mg Take 2 mg Un dino 2 mg tablet 0-13 by mouth ity of 19:16: every 8 [place] [address] (eight) Medical hours as Branch needed. carvediloL 2021-08 Yes 25mg Take 25 mg U nivers 25 mg 0-13 by mouth ity of tablet 19:16: in the [place] 30 morning Medical and 25 mg Branch in the evening. Take with meals. tiZANidine 2021-08 Yes 2mg Take 2 mg Un dino 2 mg tablet 0-13 by mouth ity of 19:16: every 8 [place] 30 (eight) Medical hours as Branch needed. carvediloL 2021-08 Yes 25mg Take 25 mg U nivers 25 mg 0-13 by mouth ity of tablet 19:16: in the [place] 30 morning Medical and 25 mg Branch in the evening. Take with meals. tiZANidine 2021-08 Yes 2mg Take 2 mg [place] 2 mg tablet 0-13 by mouth ity of 19:16: every 8 [place] [address] (eight) Medical hours as Branch needed. carvediloL 2021-08 Yes 25mg Take 25 mg U nivers 25 mg 0-13 by mouth ity of tablet 19:16: in the [place] 30 morning Medical and 25 mg Branch in the evening. Take with meals. tiZANidine 2021-08 Yes 2mg Take 2 mg [place] 2 mg tablet 0-13 by mouth ity of 19:16: every 8 [place] [address] (eight) Medical hours as Branch needed. carvediloL 2021-08 Yes 25mg Take 25 mg U nivers 25 mg 0-13 by mouth ity of tablet 19:16: in the [place] [address] morning Medical and 25 mg Branch in the evening. Take with meals. tiZANidine 2021-08 Yes 2mg Take 2 mg [place] 2 mg tablet 0-13 by mouth ity of 19:16: every 8 [place] [address] (eight) Medical hours as Branch needed. carvediloL 2021-08 Yes 25mg Take 25 mg U nivers 25 mg 0-13 by mouth ity of tablet 19:16: in the [place] 30 morning Medical and 25 mg Branch in the evening. Take with meals. tiZANidine 2021-08 Yes 2mg Take 2 mg [place]ino 2 mg tablet 0-13 by mouth ity of 19:16: every 8 [place] [address] (eight) Medical hours as Branch needed. carvediloL 2021-08 Yes 25mg Take 25 mg U nivers 25 mg 0-13 by mouth ity of tablet 19:16: in the [place] 30 morning Medical and 25 mg Branch in the evening. Take with meals. tiZANidine 2021-08 Yes 2mg Take 2 mg [place] 2 mg tablet 0-13 by mouth ity of 19:16: every 8 [place] [address] (eight) Medical hours as Branch needed. carvediloL 2021-08 Yes 25mg Take 25 mg U nivers 25 mg 0-13 by mouth ity of tablet 19:16: in the [place] 30 morning Medical and 25 mg Branch in the evening. Take with meals. tiZANidine 2021-08 Yes 2mg Take 2 mg [place] 2 mg tablet 0-13 by mouth ity of 19:16: every 8 [place] 30 (eight) Medical hours as Branch needed. carvediloL 2021-08 Yes 25mg Take 25 mg U nivers 25 mg 0-13 by mouth ity of tablet 19:16: in the [place] 30 morning Medical and 25 mg Branch in the evening. Take with meals. tiZANidine 2021-08 Yes 2mg Take 2 mg [place] 2 mg tablet 0-13 by mouth ity of 19:16: every 8 [place] [address] (eight) Medical hours as Branch needed. carvediloL 2021-08 Yes 25mg Take 25 mg U nivers 25 mg 0-13 by mouth ity of tablet 19:16: in the [place] [address] morning Medical and 25 mg Branch in the evening. Take with meals. spironolact 2021-08 Yes 25mg 25 mg, Univ ers one 0-13 Oral, ity of (ALDACTONE) 14:00: DAILY[place] 25 00 First dose Medi jennifer mg on [place] Branch 05/15/22 at 0900, Until Discontinu ed, Routine apixaban 2021-08 Yes 5mg 5 mg, Univers (ELIQUIS) 0-13 Oral, BID, ity of tablet 5 mg 01:00: First dose [place] 00 on [facility] Medical 05/14/22 Branch at 2000, Until Discontinu ed, Routine
Indicatio ns: Non-Valvul ar Atrial Fibrillati on spironolact 2021-08- Yes [id number] 25mg Take 1 Univers one 25 mg 0-13 11-13 9103 tablet by ity of tablet 00:00: 05:59 mouth in [place] 00 :00 [facility]. spironolact 2021-08- Yes [id number] 25mg Take 1 Univers one 25 mg 0-13 11-13 9103 tablet by ity of tablet 00:00: 05:59 mouth in [place] 00 :00 the [facility] Branch for 30 days. spironolact 2021-08- Yes [id number] 25mg Take 1 Univers one 25 mg 0-13 11-13 9103 tablet by ity of tablet 00:00: 05:59 mouth in [place] 00 :00 the Medical morning Branch for 30 days. spironolact 2021-08- Yes [id number] 25mg Take 1 Univers one 25 mg 0-13 11-13 9103 tablet by ity of tablet 00:00: 05:59 mouth in [place] 00 :00 the [facility] morning Branch for 30 days. spironolact 2021-08- Yes [id number] 25mg Take 1 Univers one 25 mg 0-13 11-13 9103 tablet by ity of tablet 00:00: 05:59 mouth in [place] 00 :00 the [facility] morning Branch for 30 days. spironolact 2021-08- Yes [id number] 25mg Take 1 Univers one 25 mg 0-13 11-13 9103 tablet by ity of tablet 00:00: 05:59 mouth in [place] 00 :00 the [facility] morning [place] for 30 days. spironolact 2021-08- Yes [id number] 25mg Take 1 Univers one 25 mg 0-13 11-13 9103 tablet by ity of tablet 00:00: 05:59 mouth in [place] 00 :00 the [facility] morning [place] for 30 days. spironolact 2021-08- Yes [id number] 25mg Take 1 Univers one 25 mg 0-13 11-13 9103 tablet by ity of tablet 00:00: 05:59 mouth in [place] 00 :00 the [facility] morning Branch for 30 days. spironolact 2021-08- Yes [id number] 25mg Take 1 Univers one 25 mg 0-13 11-13 9103 tablet by ity of tablet 00:00: 05:59 mouth in [place] 00 :00 the [facility] morning [place] for 30 days. spironolact 2021-08- Yes [id number] 25mg Take 1 Univers one 25 mg 0-13 11-13 9103 tablet by ity of tablet 00:00: 05:59 mouth in [place] 00 :00 the [facility] morning Branch for 30 days. spironolact 2021-08- Yes [id number] 25mg Take 1 Univers one 25 mg 0-13 11-13 9103 tablet by ity of tablet 00:00: 05:59 mouth in [place] 00 :00 the [facility] for 30 days. spironolact 2021-08- Yes [id number] 25mg Take 1 Univers one 25 mg 0-13 11-13 9103 tablet by ity of tablet 00:00: 05:59 mouth in [place] 00 :00 the [facility] for 30 days. spironolact 2021-08- Yes [id number] 25mg Take 1 Univers one 25 mg 0-13 11-13 9103 tablet by ity of tablet 00:00: 05:59 mouth in [place] 00 :00 the [facility] for 30 days. spironolact 2021-08- Yes [id number] 25mg Take 1 Univers one 25 mg 0-13 11-13 9103 tablet by ity of tablet 00:00: 05:59 mouth in [place] 00 :00 the [facility] for 30 days. spironolact 2021-08- Yes [id number] 25mg Take 1 Univers one 25 mg 0-13 11-13 9103 tablet by ity of tablet 00:00: 05:59 mouth in [place] 00 :00 [facility] for 30 days. spironolact 2021-08- Yes [id number] 25mg Take 1 Univers one 25 mg 0-13 11-13 9103 tablet by ity of tablet 00:00: 05:59 mouth in [place] 00 :00 [facility] for 30 days. spironolact 2021-08- Yes [id number] 25mg Take 1 Univers one 25 mg 0-13 11-13 9103 tablet by ity of tablet 00:00: 05:59 mouth in [place] 00 :00 the [facility] for 30 days. spironolact 2021-08- Yes [id number] 25mg Take 1 Univers one 25 mg 0-13 11-13 9103 tablet by ity of tablet 00:00: 05:59 mouth in [place] 00 :00 the [facility] for 30 days. spironolact 2021-08- Yes [id number] 25mg Take 1 Univers one 25 mg 0-13 11-13 9103 tablet by ity of tablet 00:00: 05:59 mouth in [place] 00 :00 the [facility] for 30 days. spironolact 2021-08- Yes [id number] 25mg Take 1 Univers one 25 mg 0-13 - 9103 tablet by ity of tablet 00:00: 05:59 mouth in [place] 00 :00 [facility] for 30 days. spironolact 2021-08- Yes [id number] 25mg Take 1 Univers one 25 mg 0-13 - 9103 tablet by ity of tablet 00:00: 05:59 mouth in [place] 00 :00 [facility] for 30 days. spironolact 2021-08- Yes [id number] 25mg Take 1 Univers one 25 mg 0-06-15 9103 tablet by ity of tablet 00:00: 05:59 mouth in [place] 00 :00 [facility] for 30 days. iron 2021-08- No 1000mg 1,000 mg, Unive rs dextran 0-12 10-12 IV ity of (INFED) 14:45: 18:25 [place]fusion[place] 1,000 mg in 00 :00 ONCE, 1 Medic al NaCl 0.9% dose, On Branch (NS) 500 mL [facility] IV infusion 05/14/22 at 0945, Administer over 1.5 Hours, 500 mL iron 2021-08- No 25mg 25 mg, IV Univers dextran 0-12 10-12 Piggyback, ity o f (INFED) 25 14:45: 16:55 ONCE, 1 [place] mg in NaCl 00 :00 dose, On Medic al 0.9% (NS) [facility] 100 mL IV 05/14/22 piggyback at 0945, Administer over 15 Minutes, 100 mL predniSONE 2021-08 Yes 30mg 30 mg, Unive rs (DELTASONE) 0-12 Oral, ity of tablet 30 01:00: DAILY, [place] mg 00 First dose Medical on [facility] 05/13/22 at 2000, Until Discontinu ed, Routine acetaminoph 2021-08 Yes 325mg 325 mg, Un dino en 0-11 Oral, ity of (TYLENOL) 22:23: Q6HPRN, [place] tablet 325 27 Starting Medic al mg on [facility] 05/13/22 at 1723, Until Discontinu ed, Routine, Pain (scale 1-3) acetaminoph 2021-08 Yes 1{tbl} 1 tablet, Univers en-codeine 0-11 Oral, ity of (TYLENOL 22:21: Q6HPRN, [place] #3) 300-30 47 Starting Medic al mg tablet 1 on Tue Branch tablet 05/13/22 at 1721, Until Discontinu ed, Routine, Pain (scale 7-10) sulfur 2021-08- No [id number] 5mL 5 mL, Un dino hexafluorid 011 05-13 9103 Intravenou i ty of e microsphr 17:15: 16:35 s, ONCE, 1 [place] (LUMASON) 00 :00 dose, On Medica l injection 5 Tue Branch mL 05/13/22 at 1215, Routine
team member approving Restricted medication : BETY RHODES bumetanide 2021-08- No 3mg 3 mg, Unive rs (BUMEX) 0-10 10-12 Oral, QPM, ity o f tablet 3 mg 22:00: 12:16 First dose [place] 00 :52 on [facility] Medical 05/12/22 Branch at 1700, Until Discontinu ed, Routine nitroglycer 2021-08 Yes .4mg 0.4 mg, Uni vers in 0-10 Sublingual ity of (NITROSTAT) 20:54: , Q5MIN [place] sublingual 18 PRN, Medical tablet 0.4 Starting Branc h mg on Thu05/12/22 at 1554, Until Discontinu ed, Routine, Chest pain nitroglycer 2021-08- No .4mg 0.4 mg, Un dino in 0-10 10-10 Sublingual ity of (NITROSTAT) 18:16: 18:33 , ONCE, 1 [place] sublingual 00 :00 dose, On Medic al tablet 0.4 Mon Branch mg 05/12/22 at 1330, Routine trimethoben 2021-08 Yes 200mg 200 mg, Un dino zamide 0-10 Intramuscu ity of (TIGAN) 17:19: lar, [place] injection 25 Q6HPRN, Medical 200 mg Starting Branch on 05/12/22 at 1219, Until Discontinu ed, Routine, Nausea and Vomiting (N/V) bumetanide 2021-08- No 4mg 4 mg, Unive rs (BUMEX) 0-10 10-12 Oral, QAM, ity o f tablet 4 mg 14:00: 12:16 First dose [place] 00 :52 on [facility] 05/12/22 Branch at 0900, Until Discontinu ed, Routine magnesium 2021-08- No 4g 4 g, IV Univ ers sulfate in 0-10 10-10 Piggyback, it y of water 4 14:00: 16:28 at 25 [place] gram/50 mL 00 :00 mL/hr Medical (8 %) IV Administer Branc h Piggyback 4 over 120 g Minutes, ONCE, 1 dose, On [facility] 05/12/22 at 0900, Routine alum-mag 2021-08- No 30mL 30 mL, Univer s hydroxide-s 0-10 10-10 Oral, ity of imeth 03:00: 02:17 ONCE, 1 [place] (MAALOX 00 :00 dose, On Medical PLUS / [place] Branch MAG-AL 05/11/22 at PLUS) 2200, 200-200-20 Routine mg/5 mL suspension 30 mL lidocaine 2021-08- No 1{patch 1 Patch, Univers (LIDODERM) 0-10 10-10 } Topical, ity of 5 % (700 03:00: 14:17 Administer [place] mg/patch) 00 :00 over 12 Medical patch 1 Hours, Branch Patch ONCE, 1 dose, On [place] 05/11/22 at 2200, Routine atorvastati 2021-08 Yes 80mg 80 mg, Univ ers n (LIPITOR) 0-10 Oral, QHS, it y of tablet 80 02:00: First dose [place] mg 00 on [facility] 05/11/22 at Branch 2100, Until Discontinu ed, Routine carvediloL 2021-08 Yes 25mg 25 mg, Unive rs (COREG) 0-09 Oral, BID ity of tablet 25 22:00: MEALS, [place] mg 00 First dose Medical (after Branch last modificati on) on [place] 05/11/22 at 1700, Until Discontinu ed, Routine Sliding 2021-08 Yes Subcutaneo Univ ers Scale 0-09 us, TID ity of Insulin - 22:00: MEALS+HS, [place] Lispro 00 First dose Medical (HumaLOG) + on [facility] 05/11/22 at Testing 1700, Until Discontinu ed, Routine furosemide 2021-08 No 40mg 40 mg, Univ ers (LASIX) 0 10-10 Slow IV ity of injection 22:00: 13:32 Push, [place] 40 mg 00 :13 QAM+PM, Medical First dose Branch on [place] 05/11/22 at 1700, Until Discontinu ed, Routine hydrALAZINE 2021-08 No 25mg 25 mg, Uni vers (APRESOLINE 0-10 Oral, Q6H, i ty of ) tablet 25 20:00: 11:16 First dose [place] mg 00 :54 on [facility] 05/11/22 at Branch 1500, Until Discontinu ed, Routine gabapentin 2021-08 Yes 100mg 100 mg, Uni vers (NEURONTIN) 0-09 Oral, TID, it y of capsule 100 19:00: First dose [place] mg 00 on [facility] 05/11/22 at Branch 1400, Until Discontinu ed, Routine aspirin EC 2021-08 Yes 81mg 81 mg, Unive rs tablet 81 0-09 Oral, ity of mg 17:45: DAILY, [place] 00 First dose Medical (after Branch last modificati on) on [place] 05/11/22 at 1245, Until Discontinu ed, Routine omeprazole 2021-08 Yes 40mg 40 mg, Unive rs (PRILOSEC) 0-09 Oral, ity of capsule 40 17:45: DAILY, [place] mg 00 First dose Medical (after Branch last modificati on) on [place] 05/11/22 at 1245, Until Discontinu ed, Routine lisinopriL 2021-08 No 2.5mg 2.5 mg, Un dino (PRINIVIL,Z 0- Oral, ity of ESTRIL) 17:45: 16:39 DAILY, [place] tablet 2.5 00 :15 First dose Med ical mg (after Branch last modificati on) on [place] 05/11/22 at 1245, Until Discontinu ed, Routine spironolact 2021-08 No 50mg 50 mg, Uni vers one 0-11 Oral, ity of (ALDACTONE) 17:45: 16:39 DAILY, [place] tablet 50 00 :15 First dose Medi jennifer mg (after Branch last modificati on) on [place] 05/11/22 at 1245, Until Discontinu ed, Routine dextrose 2021-08 Yes 250mL 250 mL, IV Un dino 10% (D10W) 0-09 Infusion, ity of bolus 17:11: PRN - SEE [place] infusion 26 INSTRUCTIO Medic al 250 mL , Branch Administer over 60 Minutes, Other, If blood glucose is < or = 70 mg/dL and patient is unable to swallow or has mental status changes, Starting on [place] 05/11/22 at 1211
If blood glucose is < or = 70 mg/dL and patient is unable to swallow or has mental status changes (Give glucagon order if patient needs fluid restrictio n): IF IV access available: Dextrose 10%. 1. 125 mL (? bag) of D10W IV infusion - equivalent to 12.5 g dextrose 2. Blood glucose - draw blood glucose 15 minutes after D10W Administra tion. 3. If blood glucose is < 80 mg/dL, repeat.
glucagon 2021-08 Yes 1mg 1 mg, Univers (GLUCAGEN 0-09 Intramuscu ity of DIAGNOSTIC 17:11: lar, PRN, [place] KIT) 26 Starting Medical injection 1 on [facility] 05/11/22 at 1211, Until Discontinu ed, MJ, Blood Glucose < or = 70 mg/dL and patient is unable to swallow or has mental changes. heparin 2021-08- No 5000U 5,000 Univers 1000 0-04 12-09 Units, IV ity of unit/mL 16:30: 18:11 Push, [place] injection 00 :00 ONCE, 1 Medical Soln 5,000 dose, On Branc h Units [place] 05/11/22 at 1130, Routine heparin 2021-08- No 3000U FOR Univers (1,000 0-04 12-12 REBOLUSING ity of unit/mL, 10 16:01: 14:00 , Starting [place] mL vial) 34 :45 on [facility] 05/11/22 at Branch 1101, Until 05/14/22 at 0900, Routine
Dosing based on aPTT testing parameters (refer to continuous heparin drip order)
heparin 2021-08- No 1300U/h 1,300 Unive rs 25,000 0-09 10-12 Units/hr ity of Units/250 16:01: 14:00 (13 [place] mL 34 :45 mL/hr), IV Medical (Premixed Infusion, Branc h Bag) in TITRATE, 0.45 % NS Parameters in Admin. Instr., Starting on 05/11/22 at 1101
CA UTION - If LMWH given in ER, AVOID bolus and start next dose/drip 12 hrs after ER dosage.&nb sp; M ust program rate using programmab le infusion pump.&nbsp ; Najma ck with the ordering provider first prior to any administra tion should the patient be on existing/a dditional anticoagul ant therapy. Rang e, Dosing and Testing: &nbs p;DO NOT ADJUST INITIAL BOLUS OR INITIAL INFUSION RATE.&nbsp ; _ &nb sp;FOR [facility], [facility], AND [facility] ONLY &nbs p; - aPTT < 35: & nbsp;Bolus 5000 units, increase rate 300 units/hr&n bsp; - aPTT 35-44:&nbs p; González callie 3000 units, increase rate 200 units/hr&n bsp; - aPTT 45-54:&nbs p; In crease rate 100 units/hr&n bsp; - aPTT 55-85:&nbs p; NO CHANGE&nbs p; - aPTT 86-95:&nbs p; De crease rate 100 units/hr&n bsp; - aPTT 96-120:&nb sp;&nb sp;Hold 30 minutes, decrease rate 150 units/hr&n bsp; - aPTT > 120: Hold 60 minutes, decrease rate 200 units/hr&n bsp; Check aPTT 6 hours after initiation , then Q6H after every change, aPTT Q12H once therapeuti c levels are reached.&n bsp; &nbs p; __ &n bsp;FOR [facility] ONLY - aPTT < 40: & nbsp;Bolus 5000 units, increase rate 300 units/hr&n bsp; - aPTT 40-49:&nbs p; González callie 3000 units, increase rate 200 units/hr&n bsp; - aPTT 50-59:&nbs p; In crease rate 100 units/hr&n bsp; - aPTT 60-85:&nbs p; NO CHANGE&nbs p; - aPTT 86-95:&nbs p; De crease rate 100 units/hr&n bsp; - aPTT 96-120:&nb sp; H old 30 minutes, decrease rate 150 units/hr&n bsp; - aPTT > 120: Hold 60 minutes, decrease rate 200 units/hr&n bsp; Check aPTT 6 hours after initiation , then Q6H after every change, aPTT Q12H once therapeuti c levels are reached.<b r> acetaminoph 2021-08- No 650mg 650 mg, U nivers en 05-13 Oral, ity of (TYLENOL) 15:27: 22:23 Q6HPRN, [place] tablet 650 54 :42 Starting Medic al mg on [place] 05/11/22 at 1027, Until Tu05/13/22 at 1723, Routine, Pain (scale 1-3) ondansetron 2021-08- No 4mg 4 mg, Slow Univers (ZOFRAN 05-11 IV Push, ity of (PF)) 13:30: 13:23 ONCE, 1 [place] injection 4 00 :00 dose, On Medi jennifer mg [place] 05/11/22 at 0830, MJ tiZANidine 2021-08 Yes 2mg Take 2 mg Un dino 2 mg tablet 0-09 by mouth ity of 12:16: every 8 [place] 40 (eight) Medical hours as Branch needed. carvediloL 2021-08 Yes 25mg Take 25 mg U nivers 25 mg 0-09 by mouth ity of tablet 12:16: in the [place] 40 morning Medical and 25 mg Branch in the evening. Take with meals. furosemide 2021-08- No 80mg 80 mg, IV U nivers (LASIX) 005-11 Push, ity of injection 09:30: 09:32 ONCE, 1 [place] 80 mg 00 :00 dose, On [facility] 05/11/22 at 0430, MJ morpHINE (4 2021-08- No 4mg 4 mg, Slow Univers mg/mL) 005-11 IV Push, ity of injection 4 09:15: 09:33 ONCE, 1 [place] mg 00 :00 dose, On [facility] 05/11/22 at 0415, STAT cloNIDine 2021-08- No .1mg 0.1 mg, Univ ers (CATAPRES) 005-11 Oral, ity of tablet 0.1 08:15: 08:16 ONCE, 1 [place] as mg 00 :00 dose, On [facility] 05/11/22 at 0315, STAT acetaminoph 2021-08- No 1000mg 1,000 mg, Univers en 005-11 Oral, PRN, ity of (TYLENOL) 08:12: 08:16 1 dose, [place] tablet 17 :00 Starting Medical 1,000 mg on [place] Branch 05/11/22 at 0312, Until 05/11/22 at 0316, MJ, Pain (scale 4-6), headache benzonatate 2021-08 Yes [id number] 100mg Take 1 [facility] 100 mg 0-07 capsule by ity of capsule 00:00: mouth 3 [place] 00 (three) Medical times Branch daily as needed for Cough. benzonatate 2021-08 Yes [id number] 100mg Take 1 [facility] 100 mg 0-07 capsule by ity of capsule 00:00: mouth 3 (three) Medical times Branch daily as needed for Cough. benzonatate 2021-08 Yes [id number] 100mg Take 1 [facility] 100 mg 0-07 capsule by ity of capsule 00:00: mouth (three) Medical times Branch daily as needed for Cough. benzonatate 2021-08 Yes [id number] 100mg Take 1 [facility] 100 mg 0-07 capsule by ity of capsule 00:00: mouth (three) Medical times Branch daily as needed for Cough. benzonatate 2021-08 Yes [id number] 100mg Take 1 [facility] 100 mg 0-07 capsule by ity of capsule 00:00: mouth (three) Medical times Branch daily as needed for Cough. benzonatate 2021-08 Yes [id number] 100mg Take 1 Univers 100 mg 0-07 capsule by ity of capsule 00:00: mouth (three) Medical times Branch daily as needed for Cough. benzonatate 2021-08 Yes [id number] 100mg Take 1 Univers 100 mg 0-07 capsule by ity of capsule 00:00: mouth (three) Medical times Branch daily as needed for Cough. benzonatate 2021-08 Yes [id number] 100mg Take 1 [facility] 100 mg 0-07 capsule by ity of capsule 00:00: mouth (three) Medical times Branch daily as needed for Cough. benzonatate 2021-08 Yes [id number] 100mg Take 1 [facility] 100 mg 0-07 capsule by ity of capsule 00:00: mouth (three) Medical times Branch daily as needed for Cough. benzonatate 2021-08 Yes [id number] 100mg Take 1 Univers 100 mg 0-07 capsule by ity of capsule 00:00: mouth (three) Medical times Branch daily as needed for Cough. benzonatate 2021-08 Yes [id number] 100mg Take 1 Univers 100 mg 0-07 capsule by ity of capsule 00:00: mouth (three) Medical times Branch daily as needed for Cough. benzonatate 2021-08 Yes [id number] 100mg Take 1 [facility] 100 mg 0-07 capsule by ity of capsule 00:00: mouth (three) Medical times Branch daily as needed for Cough. benzonatate 2021-08 Yes [id number] 100mg Take 1 Univers 100 mg 0-07 capsule by ity of capsule 00:00: mouth 3 [place] 00 (three) Medical times Branch daily as needed for Cough. benzonatate 2021-08 Yes [id number] 100mg Take 1 Univers 100 mg 0-07 capsule by ity of capsule 00:00: mouth 3 [place] 00 (three) Medical times Branch daily as needed for Cough. benzonatate 2021-08 Yes [id number] 100mg Take 1 Univers 100 mg 0-07 capsule by ity of capsule 00:00: mouth 3 [place] 00 (three) Medical times Branch daily as needed for Cough. benzonatate 2021-08 Yes [id number] 100mg Take 1 Univers 100 mg 0-07 capsule by ity of capsule 00:00: mouth 3 [place] 00 (three) Medical times Branch daily as needed for Cough. benzonatate 2021-08 Yes [id number] 100mg Take 1 Univers 100 mg 0-07 capsule by ity of capsule 00:00: mouth 3 [place] 00 (three) Medical times Branch daily as needed for Cough. benzonatate 2021-08- No [id number] 100mg Take 1 Univers 100 mg 0-07 11-01 capsule by ity of capsule 00:00: 00:00 mouth 3 [place] 00 :00 (three) Medical times Branch daily as needed for Cough. glipiZIDE 5 2021-08 Yes 5mg Take 5 mg U nivers mg tablet 0-05 in the ity of 00:00: morning [place] 00 and 5 mg Medical in the Branch evening. glipiZIDE 5 2021-08 Yes 5mg Take 5 mg U nivers mg tablet 0-05 in the ity of 00:00: morning [place] 00 and 5 mg Medical in the Branch evening. glipiZIDE 5 2021-08 Yes 5mg Take 5 mg U nivers mg tablet 0-05 in the ity of 00:00: morning [place] 00 and 5 mg Medical in the Branch evening. glipiZIDE 5 2021-08 Yes 5mg Take 5 mg U nivers mg tablet 0-05 in the ity of 00:00: morning [place] 00 and 5 mg Medical in the Branch evening. glipiZIDE 5 2021-08 Yes 5mg Take 5 mg U nivers mg tablet 0-05 in the ity of 00:00: morning [place] 00 and 5 mg Medical in the Branch evening. glipiZIDE 5 2021-08 Yes 5mg Take 5 mg U nivers mg tablet 0-05 in the ity of 00:00: morning [place] 00 and 5 mg Medical in the Branch evening. glipiZIDE 5 2021- Yes 5mg Take 5 mg U nivers mg tablet 0-05 in the ity of 00:00: morning [place] 00 and 5 mg Medical in the Branch evening. glipiZIDE 5 2021-08 Yes 5mg Take 5 mg U nivers mg tablet 0-05 in the ity of 00:00: morning [place] 00 and 5 mg Medical in the Branch evening. glipiZIDE 5 2021-08 Yes 5mg Take 5 mg U nivers mg tablet 0-05 in the ity of 00:00: morning [place] 00 and 5 mg Medical in the Branch evening. glipiZIDE 5 2021-08 Yes 5mg Take 5 mg U nivers mg tablet 0-05 in the ity of 00:00: morning [place] 00 and 5 mg Medical in the Branch evening. glipiZIDE 5 2021-08 Yes 5mg Take 5 mg U nivers mg tablet 0-05 in the ity of 00:00: morning [place] 00 and 5 mg Medical in the Branch evening. glipiZIDE 5 2021-08 Yes 5mg Take 5 mg U nivers mg tablet 0-05 in the ity of 00:00: morning [place] 00 and 5 mg Medical in the Branch evening. glipiZIDE 5 2021-08 Yes 5mg Take 5 mg U nivers mg tablet 0-05 in the ity of 00:00: morning [place] 00 and 5 mg Medical in the Branch evening. glipiZIDE 5 2021-08 Yes 5mg Take 5 mg U nivers mg tablet 0-05 in the ity of 00:00: morning [place] 00 and 5 mg Medical in the Branch evening. glipiZIDE 5 2021-08 Yes 5mg Take 5 mg U nivers mg tablet 0-05 in the ity of 00:00: morning [place] 00 and 5 mg Medical in the Branch evening. glipiZIDE 5 2021-08 Yes 5mg Take 5 mg U nivers mg tablet 0-05 in the ity of 00:00: morning [place] 00 and 5 mg Medical in the Branch evening. glipiZIDE 5 2021-08 Yes 5mg Take 5 mg U nivers mg tablet 0-05 in the ity of 00:00: morning [place] 00 and 5 mg Medical in the Branch evening. glipiZIDE 5 2021-08 Yes 5mg Take 5 mg U nivers mg tablet 0-05 in the ity of 00:00: morning [place] 00 and 5 mg Medical in the Branch evening. glipiZIDE 5 2021-08 Yes 5mg Take 5 mg U nivers mg tablet 0-05 in the ity of 00:00: morning [place] 00 and 5 mg Medical in the Branch evening. glipiZIDE 5 2021-08 Yes 5mg Take 5 mg U nivers mg tablet 0-05 in the ity of 00:00: morning [place] 00 and 5 mg Medical in the Branch evening. glipiZIDE 5 2021-08 Yes 5mg Take 5 mg U nivers mg tablet 0-05 in the ity of 00:00: morning [place] 00 and 5 mg Medical in the Branch evening. glipiZIDE 5 2021-08 Yes 5mg Take 5 mg U nivers mg tablet 0-05 in the ity of 00:00: morning [place] 00 and 5 mg Medical in the Branch evening. glipiZIDE 5 2021-08 Yes 5mg Take 5 mg U nivers mg tablet 0-05 in the ity of 00:00: morning [place] 00 and 5 mg Medical in the Branch evening. glipiZIDE 5 2021-08 Yes 5mg Take 5 mg U nivers mg tablet 0-05 in the ity of 00:00: morning [place] 00 and 5 mg Medical in the Branch evening. glipiZIDE 5 2021-08 Yes 5mg Take 5 mg U nivers mg tablet 0-05 in the ity of 00:00: morning [place] 00 and 5 mg Medical in the Branch evening. glipiZIDE 5 2021-08 Yes 5mg Take 5 mg U nivers mg tablet 0-05 in the ity of 00:00: morning [place] 00 and 5 mg Medical in the Branch evening. lisinopriL 2021-08 Yes 2.5mg 2.5 mg, Uni vers (PRINIVIL,Z 0-04 Oral, ity of ESTRIL) 14:00: DAILY, [place] tablet 2.5 00 First dose Med ical mg on Thu05/06/22 at 0900, Until Discontinu ed, Routine spironolact 2021-08 Yes 50mg 50 mg, Univ ers one 0-04 Oral, ity of (ALDACTONE) 14:00: DAILY, [place] tablet 50 00 First dose Medi jennifer mg on [facility] 05/06/22 at 0900, Until Discontinu ed, Routine omeprazole 2021-08 Yes 40mg 40 mg, Unive rs (PRILOSEC) 0-04 Oral, ity of capsule 40 14:00: DAILY, mg 00 First dose Medical on [facility] 05/06/22 at 0900, Until Discontinu ed aspirin EC 2021-08 Yes 81mg 81 mg, Unive rs tablet 81 0-04 Oral, ity of mg 14:00: DAILY, First dose Medical on [facility] 05/06/22 at 0900, Until Discontinu ed, Routine KCL 2021-08- No 40meq 40 mEq, Univers (KLOR-CON 0-04 10-04 Oral, ity of M20) tablet 13:30: 13:11 ONCE, 1 [place] [place] 40 mEq 00 :00 dose, On Medical [facility] 05/06/22 at 0830, Routine carvediloL 2021-08 Yes 25mg 25 mg, Unive rs (COREG) 0-04 Oral, BID ity of tablet 25 13:00: MEALS, mg First dose Medical on [facility] 05/06/22 at 0800, Until Discontinu ed, Routine tiZANidine 2021-08 Yes 2mg Take 2 mg Un dino 2 mg tablet 0-04 by mouth ity of 11:27: every 8 [place] [address] (eight) Medical hours as Branch needed. carvediloL 2021-08 Yes 25mg Take 25 mg U nivers 25 mg 0-04 by mouth ity of tablet 11:27: in the [place] [address] morning Medical and 25 mg Branch in the evening. Take with meals. tiZANidine 2021-08 Yes 2mg Take 2 mg Un dino 2 mg tablet 0-04 by mouth ity of 11:27: every 8 [place] [address] (eight) Medical hours as Branch needed. carvediloL 2021-08 Yes 25mg Take 25 mg U nivers 25 mg 0-04 by mouth ity of tablet 11:27: in the [place] [address] morning Medical and 25 mg Branch in the evening. Take with meals. tiZANidine 2021-08 Yes 2mg Take 2 mg Un dino 2 mg tablet 0-04 by mouth ity of 11:27: every 8 [place] [address] (eight) Medical hours as Branch needed. carvediloL 2021-08 Yes 25mg Take 25 mg U nivers 25 mg 0-04 by mouth ity of tablet 11:27: in the [place] [address] morning Medical and 25 mg Branch in the evening. Take with meals. tiZANidine 2021-08 Yes 2mg Take 2 mg Un dino 2 mg tablet 0-04 by mouth ity of 11:27: every 8 [place] [address] (eight) Medical hours as Branch needed. carvediloL 2021-08 Yes 25mg Take 25 mg U nivers 25 mg 0-04 by mouth ity of tablet 11:27: in the [place] [address] morning Medical and 25 mg Branch in the evening. Take with meals. tiZANidine 2021-08 Yes 2mg Take 2 mg Un dino 2 mg tablet 0-04 by mouth ity of 11:27: every 8 [place] [address] (eight) Medical hours as Branch needed. carvediloL 2021-08 Yes 25mg Take 25 mg U nivers 25 mg 0-04 by mouth ity of tablet 11:27: in the [place] [address] morning Medical and 25 mg Branch in the evening. Take with meals. tiZANidine 2021-08 Yes 2mg Take 2 mg Un dino 2 mg tablet 0-04 by mouth ity of 11:27: every 8 [place] [address] (eight) Medical hours as Branch needed. carvediloL 2021-08 Yes 25mg Take 25 mg U nivers 25 mg 0-04 by mouth ity of tablet 11:27: in the [place] [address] morning Medical and 25 mg Branch in the evening. Take with meals. HYDROcodone 2021-08 Yes 1{tbl} 1 tablet, Univers -acetaminop 0-04 Oral, ity of hen (NORCO) 10:16: Q6HPRN, [place] as 10-325 mg 48 Starting Medica l tablet 1 on Thu tablet 05/06/22 at 0516, Until Discontinu ed, Routine, Pain (scale 7-10) hydralAZINE 2021-08 Yes 10mg 10 mg, Univ ers (APRESOLINE 0-04 Slow IV ity o f ) injection 10:15: Push, [place] 10 mg 52 Q4HPRN, Medical Starting Branch on Thu05/06/22 at 0515, Until Discontinu ed, STAT, DBP=>100; SBP=>160, DBP=>100; SBP=>180 furosemide 2021-08- No 40mg 40 mg, Univ ers (LASIX) 0-04 10-04 Slow IV ity of injection 03:00: 12:27 Push, Q8H, [place] 40 mg 00 :38 First dose Medical on [facility] 05/05/22 at 2200, Until Discontinu ed, Routine atorvastati 2021-08 Yes 80mg 80 mg, Univ ers n (LIPITOR) 0-04 Oral, QHS, it y of tablet 80 02:00: First dose [place] mg 00 on [facility] 05/05/22 at Branch 2100, Until Discontinu ed, Routine hydralAZINE 2021-08- No 20mg 20 mg, Uni vers (APRESOLINE 0-04 10-04 Slow IV ity of ) injection 01:15: 00:26 [place] 20 mg 00 :00 ONCE, 1 Medical dose, On Branch [facility] 05/05/22 at 2015, STAT apixaban 2021-08 Yes 1358 5mg 5 mg, Univers (ELIQUIS) 0-04 Oral, BID, ity of tablet 5 mg 01:00: First dose [place] 00 on [facility] 05/05/22 at Branch 2000, Until Discontinu ed, Routine
Indicatio ns: Non-Valvul ar Atrial Fibrillati on HYDROcodone 2021-08- Yes 1{tbl} 1 tablet, Univers -acetaminop 0-04 10-06 Oral, ity of hen (NORCO 00:15: 00:14 Q6HPRN, [place] 5) 5-325 mg 49 :49 Starting Medi jennifer tablet 1 on Thu [place] tablet 05/05/22 at 1915, Until Thu05/07/22 at 1914, Routine, Pain (scale 4-6) acetaminoph 2021-08 Yes 650mg 650 mg, Un dino en 0-04 Oral, ity of (TYLENOL) 00:15: Q6HPRN, [place] tablet 650 44 Starting Medic al mg on [facility] Branch 05/05/22 at 1915, Until Discontinu ed, Routine, Pain (scale 1-3) lisinopriL 2021-08- Yes [id number] 2.5mg Take 1 Univers 2.5 mg 0-04 11-04 tablet by ity of tablet 00:00: 04:59 mouth in [place] 00 :00 [facility] for 30 days. lisinopriL 2021-08- Yes [id number] 2.5mg Take 1 Univers 2.5 mg 0-04 11-04 tablet by ity of tablet 00:00: 04:59 mouth in [place] 00 :00 [facility] for 30 days. lisinopriL 2021-08- Yes [id number] 2.5mg Take 1 Univers 2.5 mg 0-04 11-04 tablet by ity of tablet 00:00: 04:59 mouth in [place] 00 :00 [facility] for 30 days. lisinopriL 2021-08- Yes [id number] 2.5mg Take 1 Univers 2.5 mg 0-04 11- tablet by ity of tablet 00:00: 04:59 mouth in [place] 00 :00 [facility] for 30 days. lisinopriL 2021-08- Yes [id number] 2.5mg Take 1 Univers 2.5 mg 0-04 11-04 tablet by ity of tablet 00:00: 04:59 mouth in [place] 00 :00 [facility] for 30 days. lisinopriL 2021-08- Yes [id number] 2.5mg Take 1 Univers 2.5 mg 0-04 -04 tablet by ity of tablet 00:00: 04:59 mouth in [place] 00 :00 [facility] for 30 days. lisinopriL 2021-08- Yes [id number] 2.5mg Take 1 Univers 2.5 mg 0-04 11-04 tablet by ity of tablet 00:00: 04:59 mouth in [place] 00 :00 [facility] for 30 days. lisinopriL 2021-08- No [id number] 2.5mg Take 1 Univers 2.5 mg 0-04 10-13 tablet by ity of tablet 00:00: 00:00 mouth in [place] 00 :00 [facility] for 30 days. morpHINE (4 2021-08- No 4mg 4 mg, Slow Univers mg/mL) 0-03 - IV Push, ity of injection 4 23:30: 23:31 ONCE, 1 [place] mg 00 :00 dose, On [facility] Branch 05/05/22 at 1830, Routine hydrALAZINE 2021-08 No 25mg 25 mg, Uni vers (APRESOLINE 0-03 - Oral, ONCE i ty of ) tablet 25 22:45: 22:38 NOW, 1 [place] mg 00 :00 dose, On [facility] Branch 05/05/22 at 1745, MJ carvediloL 2021-08 Yes 25mg Take 25 mg U nivers 25 mg 0-03 by mouth ity of tablet 20:01: in the [place] 21 morning Medical and 25 mg Branch in the evening. Take with meals. tiZANidine 2021-08 Yes 2mg Take 2 mg Un dino 2 mg tablet 0-03 by mouth ity of 19:45: every 8 [place] 40 (eight) Medical hours as Branch needed. furosemide 2021-08 No 80mg 80 mg, IV U nivers (LASIX) 0-10 10- Push, ity of injection 19:45: 20:49 ONCE, 1 [place] 80 mg 00 :00 dose, On [facility] Branch 05/05/22 at 1445, MJ spironolact Yes 50mg 50 mg, Univ ers one 04-30 Oral, ity of (ALDACTONE) 14:00: DAILY, [place] tablet 50 00 First dose Medi jennifer mg on Thu Branch 04/30/22 at 0900, Until Discontinu ed, Routine omeprazole 0 Yes 40mg 40 mg, Unive rs (PRILOSEC) 04-30 Oral, ity of capsule 40 14:00: DAILY, [place] mg 00 First dose Medical on Thu Branch 04/30/22 at 0900, Until Discontinu ed, Routine magnesium 2021-0 Yes 400mg 400 mg, Univ ers oxide 04-30 Oral, ity of (MAG-OX 14:00: DAILY, [place] 400) tablet 00 First dose Me dical 400 mg on Thu Branch 04/30/22 at 0900, Until Discontinu ed docusate 0 Yes 100mg 100 mg, Unive rs (COLACE) 9-28 Oral, ity of capsule 100 14:00: DAILY, [place] mg 00 First dose Medical on Thu04/30/22 at 0900, Until Discontinu ed cholecalcif 2021-0 Yes 1000U 1,000 Univ ers mika 04-30 Units, ity of (vitamin 14:00: Oral, [place] D3) tablet 00 DAILY, Medical 1,000 Units First dose Br anch on Thu04/30/22 at 0900, Until Discontinu ed, Routine bumetanide 2021-0 Yes 4mg 4 mg, Univer s (BUMEX) 04-30 Oral, ity of tablet 4 mg 14:00: DAILY, [place] 00 First dose Medical on Thu04/30/22 at 0900, Until Discontinu ed, Routine aspirin EC 2021-0 Yes 81mg 81 mg, Unive rs tablet 81 04-30 Oral, ity of mg 14:00: DAILY, [place] 00 First dose Medical on Thu04/30/22 at 0900, Until Discontinu ed, Routine tiZANidine 2021-0 Yes 2mg Take 2 mg Un dino 2 mg tablet 04-30 by mouth ity of 11:36: every 8 [place] [address] (eight) Medical hours as Branch needed. carvediloL 2-0 Yes 25mg Take 25 mg U nivers (COREG) 25 04-30 by mouth ity o f mg tablet 11:36: in the [place] [address] morning Medical and 25 mg Branch in the evening. Take with meals. tiZANidine 2-0 Yes 2mg Take 2 mg Un dino 2 mg tablet 04-30 by mouth ity of 11:36: every 8 [place] [address] (eight) Medical hours as Branch needed. carvediloL 2022-0 Yes 25mg Take 25 mg U nivers (COREG) 25 - by mouth ity o f mg tablet 11:36: in the [place] [address] morning Medical and 25 mg Branch in the evening. Take with meals. tiZANidine 2022-0 Yes 2mg Take 2 mg Un dino 2 mg tablet 04-30 by mouth ity of 11:36: every 8 [place] [address] (eight) Medical hours as Branch needed. carvediloL 2022-0 Yes 25mg Take 25 mg U nivers (COREG) 25 - by mouth ity o f mg tablet 11:36: in the [place] [address] morning Medical and 25 mg Branch in the evening. Take with meals. tiZANidine 2021-0 Yes 2mg Take 2 mg Un dino 2 mg tablet 04-30 by mouth ity of 11:36: every 8 [place] [address] (eight) Medical hours as Branch needed. carvediloL 2021-0 Yes 25mg Take 25 mg U nivers (COREG) 25 04-30 by mouth ity o f mg tablet 11:36: in the [place] [address] morning Medical and 25 mg Branch in the evening. Take with meals. tiZANidine 2021-0 Yes 2mg Take 2 mg Un dino 2 mg tablet 04-30 by mouth ity of 11:36: every 8 [place] [address] (eight) Medical hours as Branch needed. carvediloL 2021-0 Yes 25mg Take 25 mg U nivers (COREG) 25 04-30 by mouth ity o f mg tablet 11:36: in the [place] [address] morning Medical and 25 mg Branch in the evening. Take with meals. atorvastati Yes 80mg 80 mg, Univ ers n (LIPITOR) 04-30 Oral, QHS, it y of tablet 80 02:00: First dose [place] mg 00 on [facility] 04/29/22 at Branch 2100, Until Discontinu ed, Routine gabapentin 0 Yes 100mg 100 mg, Uni vers (NEURONTIN) 04-30 Oral, TID, it y of capsule 100 01:00: First dose [place] mg 00 on [facility] 04/29/22 at Branch 2000, Until Discontinu ed, Routine apixaban Yes 1358 5mg 5 mg, Univers (ELIQUIS) 04-30 Oral, BID, ity of tablet 5 mg 01:00: First dose [place] 00 on [facility] 04/29/22 at Branch 2000, Until Discontinu ed, Routine
Indicatio ns: Non-Valvul ar Atrial Fibrillati on Sliding Yes Subcutaneo Univ ers Scale 04-29 us, TID ity of Insulin - 22:00: MEALS+HS, [place] as Lispro 00 First dose Medical (HumaLOG) + on [facility] 04/29/22 at Testing 1700, Until Discontinu ed, Routine bumetanide 0 Yes 3mg 3 mg, Univer s (BUMEX) 04-29 Oral, QPM, ity of tablet 3 mg 22:00: First dose [place] 00 on [facility] 04/29/22 at Branch 1700, Until Discontinu ed, Routine carvediloL Yes 25mg 25 mg, Unive rs (COREG) 04-29 Oral, BID ity of tablet 25 22:00: MEALS, [place] mg 00 First dose Medical on [facility] 04/29/22 at 1700, Until Discontinu ed, Routine dextrose Yes 250mL 250 mL, IV Un dino 10% (D10W) 04-29 Infusion, ity of bolus 21:10: PRN - SEE [place] infusion 44 INSTRUCTIO Medic al 250 mL NS, Branch Administer over 60 Minutes, Other, If blood glucose is < or = 70 mg/dL and patient is unable to swallow or has mental status changes, Starting on [facility] 04/29/22 at 1610
If blood glucose is < or = 70 mg/dL and patient is unable to swallow or has mental status changes (Give glucagon order if patient needs fluid restrictio n): IF IV access available: Dextrose 10%. 1. 125 mL (? bag) of D10W IV infusion - equivalent to 12.5 g dextrose 2. Blood glucose - draw blood glucose 15 minutes after D10W Administra tion. 3. If blood glucose is < 80 mg/dL, repeat.
glucagon Yes 1mg 1 mg, Univers (GLUCAGEN 04-29 Intramuscu ity of DIAGNOSTIC 21:10: [place], PRN, [place] KIT) 41 Starting Medical injection 1 on [facility] 04/29/22 at 1610, Until Discontinu ed, MJ, Blood Glucose < or = 70 mg/dL and patient is unable to swallow or has mental changes. ondansetron Yes 4mg 4 mg, Slow Univers (ZOFRAN 04-29 IV Push, ity of (PF)) 21:10: Q6HPRN, [place] injection 4 33 Starting Medi jennifer mg on [facility] 04/29/22 at 1610, Until Discontinu ed, Routine, Nausea and Vomiting (N/V) morpHINE (4 2021- Yes 4mg 4 mg, Slow Univers mg/mL) 04-29 IV Push, ity of injection 4 21:10: 21:09 Q4HPRN, [place] mg 30 :[address] [facility] 04/29/22 at 1610, Until 04/30/22 at 1609, Routine, Pain (scale 7-10) HYDROcodone 2021-0 2021- Yes 1{tbl} 1 tablet, Univers -acetaminop 04-29 Oral, ity of hen (NORCO 21:10: 21:09 Q6HPRN, [place] 5) 5-325 mg 28 :28 Starting Medi jennifer tablet [address] [facility] tablet 04/29/22 at 1610, Until [place] 05/01/22 at 1609, Routine, Pain (scale 4-6) acetaminoph 0 Yes 650mg 650 mg, Un dino en 04-29 Oral, ity of (TYLENOL) 21:10: Q6HPRN, [place] tablet 650 25 Starting Medic al mg on [facility] 04/29/22 at 1610, Until Discontinu ed, Routine, Pain (scale 1-3) tiZANidine Yes 4mg 4 mg, Univer s (ZANAFLEX) 04-29 Oral, ity of tablet 4 mg 21:08: Q8HPRN, [place] as [address] [facility] 04/29/22 at 1608, Until Discontinu ed, Routine, Muscle Spasms HYDROcodone 2021-0 2021- No 1{tbl} 1 tablet, Univers -acetaminop 04-29 Oral, ONCE i ty of hen (NORCO) 17:00: 16:01 NOW, 1 [place] as 10-325 mg 00 :00 dose, On Medica l tablet [address] [facility] tablet 04/29/22 at 1200, Routine hydralAZINE 2021- No 10mg 10 mg, Uni vers (APRESOLINE 04-29 Slow IV ity of ) injection 16:45: 16:50 [place], [place] 10 mg 00 :00 ONCE, 1 Medical dose, On Branch [facility] 04/29/22 at 1145, MJ hydralAZINE 2021- No 10mg 10 mg, Uni vers (APRESOLINE 04-29 Slow IV ity of ) injection 16:45: 16:01 [place], [place] 10 mg 00 :00 ONCE, 1 Medical dose, On Branch e 04/29/22 at 1145, STAT Blood-Gluco 0 Yes [id number] Check U nivers se Meter 9-26 sugars 1 ity of Kit 00:00: times a day. Dx Medical Code Branch E11.9. Brand per insurance. blood sugar 0 Yes [id number] Check U nivers diagnostic 9-26 sugars 1 ity o f strip 00:00: times a day. Dx Medical Code Branch E11.9. Brand per insurance. Lancets 0 Yes [id number] Check Unive rs Misc 9-26 sugars 1 ity of 00:00: times a day. Dx Medical Code Branch E11.9. Brand per insurance. Docusate 0 Yes [id number] 100mg Take 1 Un dino Sodium 100 9-26 tablet by ity of mg tablet 00:00: [place] 00 the Medical morning. Branch acetaminoph 0 Yes 2745 1{tbl} Take 1 Un dino en-codeine 9-26 tablet by ity of 300-30 mg 00:00: mouth [place] tablet 00 needed Medical (take Branch daily as needed for severe right knee pain, s/p TKA, heart failure, unable to take NSAIDS). Indication s: chronic pain Blood-Gluco 0 Yes [id number] Check U nivers se Meter 9-26 sugars 1 ity of Kit 00:00: times a day. Dx Medical Code Branch E11.9. Brand per insurance. blood sugar 0 Yes [id number] Check U nivers diagnostic 9-26 sugars 1 ity o f strip 00:00: times a day. Dx Medical Code Branch E11.9. Brand per insurance. Lancets 0 Yes [id number] Check Unive rs Misc 9-26 sugars 1 ity of 00:00: times a day. Dx Medical Code Branch E11.9. Brand per insurance. Docusate 0 Yes [id number] 100mg Take 1 Un dino Sodium 100 9-26 tablet by ity of mg tablet 00:00: [place] 00 the Medical morning. Branch acetaminoph 0 Yes 2745 1{tbl} Take 1 Un dino en-codeine 9-26 tablet by ity of 300-30 mg 00:00: mouth [place] tablet 00 needed Medical (take Branch daily as needed for severe right knee pain, s/p TKA, heart failure, unable to take NSAIDS). Indication s: chronic pain Blood-Gluco Yes [id number] Check U nivers se Meter 9-26 sugars 1 ity of Kit 00:00: times a day. Dx Medical Code Branch E11.9. Brand per insurance. blood sugar Yes [id number] Check U nivers diagnostic 9-26 sugars 1 ity o f strip 00:00: times a day. Dx Medical Code Branch E11.9. Brand per insurance. Lancets Yes [id number] Check Unive rs Misc 9-26 sugars 1 ity of 00:00: times a day. Dx Medical Code Branch E11.9. Brand per insurance. Docusate 0 Yes [id number] 100mg Take 1 Un dino Sodium 100 9-26 tablet by ity of mg tablet 00:00: [place] 00 the Medical morning. Branch acetaminoph 0 Yes 2745 1{tbl} Take 1 Un dino en-codeine 9-26 tablet by ity of 300-30 mg 00:00: mouth [place] tablet 00 needed Medical (take Branch daily as needed for severe right knee pain, s/p TKA, heart failure, unable to take NSAIDS). Indication s: chronic pain Blood-Gluco 0 Yes [id number] Check U nivers se Meter 9-26 sugars 1 ity of Kit 00:00: times a day. Dx Medical Code Branch E11.9. Brand per insurance. blood sugar 0 Yes [id number] Check U nivers diagnostic 9-26 sugars 1 ity o f strip 00:00: times a day. Dx Medical Code Branch E11.9. Brand per insurance. Lancets 0 Yes [id number] Check Unive rs Misc 9-26 sugars 1 ity of 00:00: times a day. Dx Medical Code Branch E11.9. Brand per insurance. Docusate Yes [id number] 100mg Take 1 Un dino Sodium 100 9-26 tablet by ity of mg tablet 00:00: mouth [place] the morning. Branch acetaminoph 0 Yes 2745 1{tbl} Take 1 Un dino en-codeine 9-26 tablet by ity of 300-30 mg 00:00: mouth [place] tablet 00 needed Medical (take Branch daily as needed for severe right knee pain, s/p TKA, heart failure, unable to take NSAIDS). Indication s: chronic pain Blood-Gluco Yes [id number] Check U nivers se Meter 9-26 sugars 1 ity of Kit 00:00: times a day. Dx Medical Code Branch E11.9. Brand per insurance. blood sugar Yes [id number] Check U nivers diagnostic 9-26 sugars 1 ity o f strip 00:00: times a day. Dx Medical Code Branch E11.9. Brand per insurance. Lancets Yes [id number] Check Unive rs Misc 9-26 sugars 1 ity of 00:00: times a day. Dx Medical Code Branch E11.9. Brand per insurance. Docusate Yes [id number] 100mg Take 1 Un dino Sodium 100 9-26 tablet by ity of mg tablet 00:00: mouth [place] the morning. Branch acetaminoph Yes 2745 1{tbl} Take 1 Un dino en-codeine 9-26 tablet by ity of 300-30 mg 00:00: mouth [place] tablet 00 needed Medical (take Branch daily as needed for severe right knee pain, s/p TKA, heart failure, unable to take NSAIDS). Indication s: chronic pain Lancets 0 Yes [id number] Check Unive rs Misc 9-26 sugars 1 ity of 00:00: times a day. Dx Medical Code Branch E11.9. Brand per insurance. Docusate 0 Yes [id number] 100mg Take 1 Un dino Sodium 100 9-26 tablet by ity of mg tablet 00:00: mouth [place] the morning. Branch acetaminoph 0 Yes 2745 1{tbl} Take 1 Un dino en-codeine 9-26 tablet by ity of 300-30 mg 00:00: mouth [place] tablet 00 needed Medical (take Branch daily as needed for severe right knee pain, s/p TKA, heart failure, unable to take NSAIDS). Indication s: chronic pain Lancets 2021-0 Yes [id number] Check Unive rs Misc 9-26 sugars 1 ity of 00:00: times a day. Dx Medical Code Branch E11.9. Brand per insurance. Docusate 0 Yes [id number] 100mg Take 1 Un dino Sodium 100 9-26 tablet by ity of mg tablet 00:00: mouth [place] the Medical morning. Branch acetaminoph 2021-0 Yes 2745 1{tbl} Take 1 [place] en-codeine 9-26 tablet by ity of 300-30 mg 00:00: mouth [place] tablet 00 needed Medical (take Branch daily as needed for severe right knee pain, s/p TKA, heart failure, unable to take NSAIDS). Indication s: chronic pain Lancets 2021-0 Yes [id number] Check Unive rs Misc 9-26 sugars 1 ity of 00:00: times a day. Dx Medical Code Branch E11.9. Brand per insurance. Docusate 0 Yes [id number] 100mg Take 1 Un dino Sodium 100 9-26 tablet by ity of mg tablet 00:00: mouth [place] the morning. Branch acetaminoph 2021-0 Yes 2745 1{tbl} Take 1 [place] en-codeine 9-26 tablet by ity of 300-30 mg 00:00: mouth [place] tablet 00 needed Medical (take Branch daily as needed for severe right knee pain, s/p TKA, heart failure, unable to take NSAIDS). Indication s: chronic pain Lancets 2021-0 Yes [id number] Check Unive rs Misc 9-26 sugars 1 ity of 00:00: times a [place] 00 day. Dx Medical Code Branch E11.9. Brand per insurance. Docusate 2021-0 Yes [id number] 100mg Take 1 Un dino Sodium 100 9-26 tablet by ity of mg tablet 00:00: mouth [place] 00 the Medical morning. Branch acetaminoph 2022-0 Yes 2745 1{tbl} Take 1 [place] en-codeine 9-26 tablet by ity of 300-30 mg 00:00: mouth [place] tablet 00 needed Medical (take Branch daily as needed for severe right knee pain, s/p TKA, heart failure, unable to take NSAIDS). Indication s: chronic pain Lancets Yes [id number] Check Unive rs Misc 9-26 sugars 1 ity of 00:00: times a day. Dx Medical Code Branch E11.9. Brand per insurance. Docusate Yes [id number] 100mg Take 1 [place] d[place] Sodium 100 9-26 tablet by ity of mg tablet 00:00: mouth [place] the Medical morning. Branch acetaminoph Yes 2745 1{tbl} Take 1 [place] en-codeine 9-26 tablet by ity of 300-30 mg 00:00: mouth as [place] tablet 00 needed Medical (take Branch daily as needed for severe right knee pain, s/p TKA, heart failure, unable to take NSAIDS). Indication s: chronic pain Lancets Yes [id number] Check Unive rs Misc 9-26 sugars 1 ity of 00:00: times a day. Dx Medical Code Branch E11.9. Brand per insurance. Docusate Yes [id number] 100mg Take 1 [place] Sodium 100 9-26 tablet by ity of mg tablet 00:00: mouth [place] the morning. Branch acetaminoph Yes 2745 1{tbl} Take 1 [place] en-codeine 9-26 tablet by ity of 300-30 mg 00:00: mouth as [place] tablet 00 needed Medical (take Branch daily as needed for severe right knee pain, s/p TKA, heart failure, unable to take NSAIDS). Indication s: chronic pain Lancets 0 Yes [id number] Check Unive rs Misc 9-26 sugars 1 ity of 00:00: times a [place] 00 day. Dx Medical Code Branch E11.9. Brand per insurance. Docusate Yes [id number] 100mg Take 1 [place] d[place] Sodium 100 9-26 tablet by ity of mg tablet 00:00: mouth [place] the Medical morning. Branch acetaminoph Yes 2745 1{tbl} Take 1 [place] en-codeine 9-26 tablet by ity of 300-30 mg 00:00: mouth [place] tablet 00 needed Medical (take Branch daily as needed for severe right knee pain, s/p TKA, heart failure, unable to take NSAIDS). Indication s: chronic pain Lancets Yes [id number] Check Unive rs Misc 9-26 sugars 1 ity of 00:00: times a day. Dx Medical Code Branch E11.9. Brand per insurance. Docusate Yes [id number] 100mg Take 1 [place] Sodium 100 9-26 tablet by ity of mg tablet 00:00: mouth [place] the morning. Branch acetaminoph Yes 2745 1{tbl} Take 1 [place] en-codeine 9-26 tablet by ity of 300-30 mg 00:00: mouth [place] tablet 00 needed Medical (take Branch daily as needed for severe right knee pain, s/p TKA, heart failure, unable to take NSAIDS). Indication s: chronic pain Lancets Yes [id number] Check Unive rs Misc 9-26 sugars 1 ity of 00:00: times a day. Dx Medical Code Branch E11.9. Brand per insurance. Docusate 0 Yes [id number] 100mg Take 1 Un d[place] Sodium 100 9-26 tablet by ity of mg tablet 00:00: mouth [place] the morning. Branch acetaminoph 0 Yes 2745 1{tbl} Take 1 [place] en-codeine 9-26 tablet by ity of 300-30 mg 00:00: mouth [place] tablet 00 needed Medical (take Branch daily as needed for severe right knee pain, s/p TKA, heart failure, unable to take NSAIDS). Indication s: chronic pain Lancets 0 Yes [id number] Check Unive rs Misc 9-26 sugars 1 ity of 00:00: times a day. Dx Medical Code Branch E11.9. Brand per insurance. Docusate 0 Yes [id number] 100mg Take 1 [place] Sodium 100 9-26 tablet by ity of mg tablet 00:00: mouth [place] the Medical morning. Branch acetaminoph Yes 2745 1{tbl} Take 1 [place] en-codeine 9-26 tablet by ity of 300-30 mg 00:00: mouth [place] tablet 00 needed Medical (take Branch daily as needed for severe right knee pain, s/p TKA, heart failure, unable to take NSAIDS). Indication s: chronic pain Lancets Yes [id number] Check Unive rs Misc 9-26 sugars 1 ity of 00:00: times a day. Dx Medical Code Branch E11.9. Brand per insurance. Docusate Yes [id number] 100mg Take 1 [place] Sodium 100 9-26 tablet by ity of mg tablet 00:00: mouth [place] the morning. Branch acetaminoph Yes 2745 1{tbl} Take 1 [place] en-codeine 9-26 tablet by ity of 300-30 mg 00:00: mouth [place] tablet 00 needed Medical (take Branch daily as needed for severe right knee pain, s/p TKA, heart failure, unable to take NSAIDS). Indication s: chronic pain Lancets Yes [id number] Check Unive rs Misc 9-26 sugars 1 ity of 00:00: times a day. Dx Medical Code Branch E11.9. Brand per insurance. Docusate 0 Yes [id number] 100mg Take 1 [facility] Sodium 100 9-26 tablet by [facility] [place] mg tablet 00:00: [place] the morning. [place] acetaminoph 0 Yes 2745 1{tbl} Take 1 [place] en-codeine 9-26 tablet by [facility] of 300-30 mg 00:00: [place] tablet 00 needed Medical (take Branch daily as needed for severe right knee pain, s/p TKA, heart failure, unable to take NSAIDS). Indication s: chronic pain Lancets Yes [id number] Check Unive rs Misc 9-26 sugars 1 ity of 00:00: times a day. Dx Medical Code Branch E11.9. Brand per insurance. Docusate Yes [id number] 100mg Take 1 [place] Sodium 100 9-26 tablet by [place] mg tablet 00:00: [place] the Medical morning. Branch acetaminoph Yes 2745 1{tbl} Take 1 [place] en-codeine 9-26 tablet by [place] of 300-30 mg 00:00: [place] tablet 00 needed Medical (take Branch daily as needed for severe right knee pain, s/p TKA, heart failure, unable to take NSAIDS). Indication s: chronic pain Lancets Yes [id number] Check Unive rs Misc 9-26 sugars 1 ity of 00:00: times a day. Dx Medical Code Branch E11.9. Brand per insurance. Docusate Yes [id number] 100mg Take 1 [place] Sodium 100 9-26 tablet by [place] mg tablet 00:00: [place] the Medical morning. Branch acetaminoph Yes 2745 1{tbl} Take 1 [place] en-codeine 9-26 tablet by [facility] of 300-30 mg 00:00: [place] tablet 00 needed Medical (take Branch daily as needed for severe right knee pain, s/p TKA, heart failure, unable to take NSAIDS). Indication s: chronic pain Lancets Yes [id number] Check Unive rs Misc 9-26 sugars 1 ity of 00:00: times a day. Dx Medical Code Branch E11.9. Brand per insurance. Docusate 0 Yes [id number] 100mg Take 1 [place] Sodium 100 9-26 tablet by [place] [place] mg tablet 00:00: [place] the Medical morning. Branch acetaminoph 0 Yes 2745 1{tbl} Take 1 [place] en-codeine 9-26 tablet by [facility] of 300-30 mg 00:00: [place] tablet 00 needed Medical (take Branch daily as needed for severe right knee pain, s/p TKA, heart failure, unable to take NSAIDS). Indication s: chronic pain Lancets 0 Yes [id number] Check Unive rs Misc 9-26 sugars 1 ity of 00:00: times a day. Dx Medical Code Branch E11.9. Brand per insurance. Docusate Yes [id number] 100mg Take 1 [place] Sodium 100 9-26 tablet by [place] [place] mg tablet 00:00: [place] the Medical morning. Branch acetaminoph Yes 2745 1{tbl} Take 1 [place] en-codeine 9-26 tablet by [place] of 300-30 mg 00:00: mouth [place] tablet 00 needed Medical (take Branch daily as needed for severe right knee pain, s/p TKA, heart failure, unable to take NSAIDS). Indication s: chronic pain Lancets Yes [id number] Check Unive rs Misc 9-26 sugars 1 ity of 00:00: times a day. Dx Medical Code Branch E11.9. Brand per insurance. Docusate Yes [id number] 100mg Take 1 [place] Sodium 100 9-26 tablet by [place] of mg tablet 00:00: [place] the morning. Branch acetaminoph Yes 2745 1{tbl} Take 1 [place] en-codeine 9-26 tablet by [facility] of 300-30 mg 00:00: mouth [place] tablet 00 needed Medical (take Branch daily as needed for severe right knee pain, s/p TKA, heart failure, unable to take NSAIDS). Indication s: chronic pain Lancets Yes [id number] Check Unive rs Misc 9-26 sugars 1 ity of 00:00: times a day. Dx Medical Code Branch E11.9. Brand per insurance. Docusate Yes [id number] 100mg Take 1 [place] Sodium 100 9-26 tablet by [facility] of mg tablet 00:00: [place] the Medical morning. Branch acetaminoph 0 Yes 2745 1{tbl} Take 1 [place] en-codeine 9-26 tablet by [facility] of 300-30 mg 00:00: [place] tablet 00 needed Medical (take Branch daily as needed for severe right knee pain, s/p TKA, heart failure, unable to take NSAIDS). Indication s: chronic pain Lancets 0 Yes [id number] Check Unive rs Misc 9-26 sugars 1 ity of 00:00: times a . Dx Medical Code Branch E11.9. Brand per insurance. Docusate Yes [id number] 100mg Take 1 [facility] [place] Sodium 100 9-26 tablet by [facility] of mg tablet 00:00: [place] the morning. Branch acetaminoph Yes 2745 1{tbl} Take 1 [place] en-codeine 9-26 tablet by [facility] of 300-30 mg 00:00: mouth [place] tablet 00 needed Medical (take Branch daily as needed for severe right knee pain, s/p TKA, heart failure, unable to take NSAIDS). Indication s: chronic pain Lancets Yes [id number] Check Unive rs Misc 9-26 sugars 1 ity of 00:00: times a day. Dx Medical Code Branch E11.9. Brand per insurance. Docusate Yes [id number] 100mg Take 1 [place] Sodium 100 9-26 tablet by [place] of mg tablet 00:00: [place] the morning. Branch acetaminoph Yes 2745 1{tbl} Take 1 [place] en-codeine 9-26 tablet by [facility] of 300-30 mg 00:00: mouth [place] tablet 00 needed Medical (take Branch daily as needed for severe right knee pain, s/p TKA, heart failure, unable to take NSAIDS). Indication s: chronic pain Lancets 0 Yes [id number] Check Unive rs Misc 9-26 sugars 1 ity of 00:00: times a . Dx Medical Code Branch E11.9. Brand per insurance. Docusate Yes [id number] 100mg Take 1 [facility] [place] Sodium 100 9-26 tablet by [place] of mg tablet 00:00: [place] the morning. Branch acetaminoph 0 Yes 2745 1{tbl} Take 1 [place] en-codeine 9-26 tablet by [facility] of 300-30 mg 00:00: mouth [place] tablet 00 needed Medical (take Branch daily as needed for severe right knee pain, s/p TKA, heart failure, unable to take NSAIDS). Indication s: chronic pain Lancets 2021-0 Yes [id number] Check Unive rs Misc 9-26 sugars 1 ity of 00:00: times a day. Dx Medical Code Branch E11.9. Brand per insurance. Docusate Yes [id number] 100mg Take 1 [place] Sodium 100 9-26 tablet by [place] [place] mg tablet 00:00: [place] the Medical morning. Branch acetaminoph Yes 2745 1{tbl} Take 1 [place] en-codeine 9-26 tablet by [facility] of 300-30 mg 00:00: mouth [place] tablet 00 needed Medical (take Branch daily as needed for severe right knee pain, s/p TKA, heart failure, unable to take NSAIDS). Indication s: chronic pain Lancets Yes [id number] Check [facility] Misc 9-26 sugars 1 ity of 00:00: times a day. Dx Medical Code Branch E11.9. Brand per insurance. Docusate Yes [id number] 100mg Take 1 [place] Sodium 100 9-26 tablet by [place] of mg tablet 00:00: [place] the morning. Branch acetaminoph 0 Yes 2745 1{tbl} Take 1 [place] en-codeine 9-26 tablet by [place] of 300-30 mg 00:00: mouth [place] tablet 00 needed Medical (take Branch daily as needed for severe right knee pain, s/p TKA, heart failure, unable to take NSAIDS). Indication s: chronic pain Lancets Yes [id number] [facility] Misc 9-26 sugars 1 ity of 00:00: times a day. Dx Medical Code Branch E11.9. Brand per insurance. Docusate Yes [id number] 100mg Take 1 [place] Sodium 100 9-26 tablet by [place] of mg tablet 00:00: [place] the Medical morning. Branch acetaminoph 0 Yes 2745 1{tbl} Take 1 [place] en-codeine 9-26 tablet by [facility] of 300-30 mg 00:00: [place] tablet 00 needed Medical (take Branch daily as needed for severe right knee pain, s/p TKA, heart failure, unable to take NSAIDS). Indication s: chronic pain Lancets Yes [id number] Check Unive rs Misc 9-26 sugars 1 ity of 00:00: times a day. Dx Medical Code Branch E11.9. Brand per insurance. Docusate Yes [id number] 100mg Take 1 [place] Sodium 100 9-26 tablet by [place] of mg tablet 00:00: [place] the Medical morning. Branch acetaminoph Yes 2745 1{tbl} Take 1 [place] en-codeine 9-26 tablet by [place] of 300-30 mg 00:00: mouth [place] tablet 00 needed Medical (take Branch daily as needed for severe right knee pain, s/p TKA, heart failure, unable to take NSAIDS). Indication s: chronic pain Lancets Yes [id number] Check Unive rs Misc 9-26 sugars 1 ity of 00:00: times a day. Dx Medical Code Branch E11.9. Brand per insurance. Docusate Yes [id number] 100mg Take 1 [place] Sodium 100 9-26 tablet by [place] of mg tablet 00:00: [place] the morning. Branch acetaminoph Yes 2745 1{tbl} Take 1 [place] en-codeine 9-26 tablet by it[facility] of 300-30 mg 00:00: mouth [place] tablet 00 needed Medical (take Branch daily as needed for severe right knee pain, s/p TKA, heart failure, unable to take NSAIDS). Indication s: chronic pain Lancets Yes [id number] Check Unive rs Misc 9-26 sugars 1 ity of 00:00: times a day. Dx Medical Code Branch E11.9. Brand per insurance. Docusate Yes [id number] 100mg Take 1 [place] Sodium 100 9-26 tablet by [place] of mg tablet 00:00: [place] the morning. Branch acetaminoph 0 Yes 2745 1{tbl} Take 1 [place] en-codeine 9-26 tablet by it[facility] of 300-30 mg 00:00: mouth [place] tablet 00 needed Medical (take Branch daily as needed for severe right knee pain, s/p TKA, heart failure, unable to take NSAIDS). Indication s: chronic pain Lancets 0 Yes [id number] Check Unive rs Misc 9-26 sugars 1 ity of 00:00: times a day. Dx Medical Code Branch E11.9. Brand per insurance. Docusate Yes [id number] 100mg Take 1 [place] Sodium 100 9-26 tablet by [place] of mg tablet 00:00: [place] the Medical morning. Branch acetaminoph Yes 2745 1{tbl} Take 1 [place] en-codeine 9-26 tablet by ity of 300-30 mg 00:00: mouth [place] tablet 00 needed Medical (take Branch daily as needed for severe right knee pain, s/p TKA, heart failure, unable to take NSAIDS). Indication s: chronic pain Lancets Yes [id number] Check Unive rs Misc 9-26 sugars 1 ity of 00:00: times a day. Dx Medical Code Branch E11.9. Brand per insurance. Docusate 0 Yes [id number] 100mg Take 1 [place] Sodium 100 9-26 tablet by [place] of mg tablet 00:00: [place] the morning. Branch acetaminoph 0 Yes 2745 1{tbl} Take 1 [place] en-codeine 9-26 tablet by ity of 300-30 mg 00:00: mouth [place] tablet 00 needed Medical (take Branch daily as needed for severe right knee pain, s/p TKA, heart failure, unable to take NSAIDS). Indication s: chronic pain Lancets 0 Yes [id number] Check Unive rs Misc 9-26 sugars 1 ity of 00:00: times a day. Dx Medical Code Branch E11.9. Brand per insurance. Docusate 0 Yes [id number] 100mg Take 1 [place] Sodium 100 9-26 tablet by [facility] of mg tablet 00:00: [place] the Medical morning. Branch acetaminoph 0 Yes 2745 1{tbl} Take 1 [place] en-codeine 9-26 tablet by ity of 300-30 mg 00:00: mouth [place] tablet 00 needed Medical (take Branch daily as needed for severe right knee pain, s/p TKA, heart failure, unable to take NSAIDS). Indication s: chronic pain Lancets 0 Yes [id number] Check Unive rs Misc 9-26 sugars 1 ity of 00:00: times a day. Dx Medical Code Branch E11.9. Brand per insurance. Docusate Yes [id number] 100mg Take 1 [place] Sodium 100 9-26 tablet by [place] of mg tablet 00:00: [place] the Medical morning. Branch acetaminoph 0 Yes 2745 1{tbl} Take 1 [place] en-codeine 9-26 tablet by ity of 300-30 mg 00:00: mouth [place] tablet 00 needed Medical (take Branch daily as needed for severe right knee pain, s/p TKA, heart failure, unable to take NSAIDS). Indication s: chronic pain Lancets Yes [id number] Check Unive rs Misc 9-26 sugars 1 ity of 00:00: times a day. Dx Medical Code Branch E11.9. Brand per insurance. Docusate Yes [id number] 100mg Take 1 [place] Sodium 100 9-26 tablet by [place] of mg tablet 00:00: [place] the morning. Branch acetaminoph 0 Yes 2745 1{tbl} Take 1 [place] en-codeine 9-26 tablet by ity of 300-30 mg 00:00: mouth [place] tablet 00 needed Medical (take Branch daily as needed for severe right knee pain, s/p TKA, heart failure, unable to take NSAIDS). Indication s: chronic pain Lancets 0 Yes [id number] Check Unive rs Misc 9-26 sugars 1 ity of 00:00: times a day. Dx Medical Code Branch E11.9. Brand per insurance. Docusate 0 Yes [id number] 100mg Take 1 [place] Sodium 100 9-26 tablet by [place] of mg tablet 00:00: [place] 00 the Medical morning. Branch acetaminoph 0 Yes 2745 1{tbl} Take 1 [place] en-codeine 9-26 tablet by [place] of 300-30 mg 00:00: mouth [place] tablet 00 needed Medical (take Branch daily as needed for severe right knee pain, s/p TKA, heart failure, unable to take NSAIDS). Indication s: chronic pain Blood-Gluco 2021- No [id number] Check [facility] se Meter 04-28 sugars 1 ity of Kit 00:00: 00:00 times a [place] 00 :00 day. Dx Medical Code Branch E11.9. Brand per insurance. blood sugar 2021- No [id number] Check [facility] diagnostic 04-28 sugars 1 ity of strip 00:00: 00:00 times a [place] 00 :00 day. Dx Medical Code Branch E11.9. Brand per insurance. semaglutide Yes [id number] 7mg Take 7 mg Univers 7 mg Tab 9-24 by mouth ity of 00:00: daily. Take > 30 Medical minutes Branch prior to first meal of the day semaglutide 2021-0 Yes [id number] 7mg Take 7 mg [facility] 7 mg Tab 9-24 by mouth ity of 00:00: daily. 00 Take > 30 Medical minutes Branch prior to first meal of the day semaglutide 2021-0 Yes [id number] 7mg Take 7 mg [facility] 7 mg Tab 9-24 by mouth ity of 00:00: daily. Take > 30 Medical minutes Branch prior to first meal of the day semaglutide 2021-0 Yes [id number] 7mg Take 7 mg [facility] 7 mg Tab 9-24 by mouth ity of 00:00: daily. [place] Take > 30 Medical minutes Branch prior to first meal of the day semaglutide 2021-0 Yes [id number] 7mg Take 7 mg [facility] 7 mg Tab 9-24 by mouth ity of 00:00: daily. [place] 00 Take > 30 Medical minutes Branch prior to first meal of the day semaglutide 2021-0 Yes [id number] 7mg Take 7 mg Univers 7 mg Tab 9-24 by mouth ity of 00:00: daily. [place] 00 Take > 30 Medical minutes Branch prior to first meal of the day semaglutide 2021-0 Yes [id number] 7mg Take 7 mg Univers 7 mg Tab 9-24 by mouth ity of 00:00: daily. [place] Take > 30 Medical minutes Branch prior to first meal of the day semaglutide 2022-0 Yes [id number] 7mg Take 7 mg Univers 7 mg Tab 9-24 by mouth ity of 00:00: daily. 00 Take > 30 Medical minutes Branch prior to first meal of the day semaglutide 2021-0 Yes [id number] 7mg Take 7 mg Univers 7 mg Tab 9-24 by mouth ity of 00:00: daily. 00 Take > 30 Medical minutes Branch prior to first meal of the day semaglutide 2021-0 Yes [id number] 7mg Take 7 mg Univers 7 mg Tab 9-24 by mouth ity of 00:00: daily. 00 Take > 30 Medical minutes Branch prior to first meal of the day semaglutide 0 Yes [id number] 7mg Take 7 mg Univers 7 mg Tab 9-24 by mouth ity of 00:00: daily. 00 Take > 30 Medical minutes Branch prior to first meal of the day semaglutide 0 Yes [id number] 7mg Take 7 mg Univers 7 mg Tab 9-24 by mouth ity of 00:00: daily. 00 Take > 30 Medical minutes Branch prior to first meal of the day semaglutide 2021-0 Yes [id number] 7mg Take 7 mg Univers 7 mg Tab 9-24 by mouth ity of 00:00: daily. 00 Take > 30 Medical minutes Branch prior to first meal of the day semaglutide 0 Yes [id number] 7mg Take 7 mg [facility] 7 mg Tab 9-24 by mouth ity of 00:00: daily. 00 Take > 30 Medical minutes Branch prior to first meal of the day semaglutide 2021-0 Yes [id number] 7mg Take 7 mg Univers 7 mg Tab 9-24 by mouth ity of 00:00: daily. 00 Take > 30 Medical minutes Branch prior to first meal of the day semaglutide 2021-0 Yes [id number] 7mg Take 7 mg [facility] 7 mg Tab 9-24 by mouth ity of 00:00: daily. 00 Take > 30 Medical minutes Branch prior to first meal of the day semaglutide 2021-0 Yes [id number] 7mg Take 7 mg Univers 7 mg Tab 9-24 by mouth ity of 00:00: daily. 00 Take > 30 Medical minutes Branch prior to first meal of the day semaglutide 2021-0 Yes [id number] 7mg Take 7 mg [facility] 7 mg Tab 9-24 by mouth ity of 00:00: daily. [place] 00 Take > 30 Medical minutes Branch prior to first meal of the day semaglutide 2021-0 Yes [id number] 7mg Take 7 mg Univers 7 mg Tab 9-24 by mouth ity of 00:00: daily. 00 Take > 30 Medical minutes Branch prior to first meal of the day semaglutide 2021-0 Yes [id number] 7mg Take 7 mg [facility] 7 mg Tab 9-24 by mouth ity of 00:00: daily. 00 Take > 30 Medical minutes Branch prior to first meal of the day semaglutide 2021-0 Yes [id number] 7mg Take 7 mg Univers 7 mg Tab 9-24 by mouth ity of 00:00: daily. 00 Take > 30 Medical minutes Branch prior to first meal of the day semaglutide 2021-0 Yes [id number] 7mg Take 7 mg Univers 7 mg Tab 9-24 by mouth ity of 00:00: daily. 00 Take > 30 Medical minutes Branch prior to first meal of the day semaglutide 2021-0 Yes [id number] 7mg Take 7 mg Univers 7 mg Tab 9-24 by mouth ity of 00:00: daily. 00 Take > 30 Medical minutes Branch prior to first meal of the day semaglutide 2021-0 Yes [id number] 7mg Take 7 mg Univers 7 mg Tab 9-24 by mouth ity of 00:00: daily. 00 Take > 30 Medical minutes Branch prior to first meal of the day semaglutide 2021-0 Yes [id number] 7mg Take 7 mg Univers 7 mg Tab 9-24 by mouth ity of 00:00: daily. 00 Take > 30 Medical minutes Branch prior to first meal of the day semaglutide 2021-0 Yes [id number] 7mg Take 7 mg Univers 7 mg Tab 9-24 by mouth ity of 00:00: daily. 00 Take > 30 Medical minutes Branch prior to first meal of the day semaglutide 2021-0 Yes [id number] 7mg Take 7 mg Univers 7 mg Tab 9-24 by mouth ity of 00:00: daily. 00 Take > 30 Medical minutes Branch prior to first meal of the day semaglutide 2021-0 Yes [id number] 7mg Take 7 mg Univers 7 mg Tab 9-24 by mouth ity of 00:00: daily. 00 Take > 30 Medical minutes Branch prior to first meal of the day semaglutide 2-0 Yes [id number] 7mg Take 7 mg Univers 7 mg Tab 9-24 by mouth ity of 00:00: daily. [place] 00 Take > 30 Medical minutes Branch prior to first meal of the day semaglutide 2021-0 Yes [id number] 7mg Take 7 mg Univers 7 mg Tab 9-24 by mouth ity of 00:00: daily. 00 Take > 30 Medical minutes Branch prior to first meal of the day semaglutide 2021-0 Yes [id number] 7mg Take 7 mg Univers 7 mg Tab 9-24 by mouth ity of 00:00: daily. 00 Take > 30 Medical minutes Branch prior to first meal of the day semaglutide 2021-0 Yes [id number] 7mg Take 7 mg Univers 7 mg Tab 9-24 by mouth ity of 00:00: daily. 00 Take > 30 Medical minutes Branch prior to first meal of the day semaglutide 2021-0 Yes [id number] 7mg Take 7 mg Univers 7 mg Tab 9-24 by mouth ity of 00:00: daily. 00 Take > 30 Medical minutes Branch prior to first meal of the day semaglutide 2021-0 Yes [id number] 7mg Take 7 mg Univers 7 mg Tab 9-24 by mouth ity of 00:00: daily. 00 Take > 30 Medical minutes Branch prior to first meal of the day semaglutide 2021-0 Yes [id number] 7mg Take 7 mg Univers 7 mg Tab 9-24 by mouth ity of 00:00: daily. 00 Take > 30 Medical minutes Branch prior to first meal of the day semaglutide 2021-0 Yes [id number] 7mg Take 7 mg Univers 7 mg Tab 9-24 by mouth ity of 00:00: daily. 00 Take > 30 Medical minutes Branch prior to first meal of the day semaglutide 2021-0 Yes [id number] 7mg Take 7 mg Univers 7 mg Tab 9-24 by mouth ity of 00:00: daily. 00 Take > 30 Medical minutes Branch prior to first meal of the day semaglutide 2-0 Yes [id number] 7mg Take 7 mg Univers 7 mg Tab 9-24 by mouth ity of 00:00: daily. [place] 00 Take > 30 Medical minutes Branch prior to first meal of the day semaglutide 2021-0 Yes [id number] 7mg Take 7 mg Univers 7 mg Tab 9-24 by mouth ity of 00:00: daily. Take > 30 Medical minutes Branch prior to first meal of the day semaglutide 2021-0 Yes [id number] 7mg Take 7 mg Univers 7 mg Tab 9-24 by mouth ity of 00:00: daily. Take > 30 Medical minutes Branch prior to first meal of the day semaglutide 2021-0 Yes [id number] 7mg Take 7 mg Univers 7 mg Tab 9-24 by mouth ity of 00:00: daily. Take > 30 Medical minutes Branch prior to first meal of the day semaglutide 2021-0 Yes [id number] 7mg Take 7 mg Univers 7 mg Tab 9-24 by mouth ity of 00:00: daily. Take > 30 Medical minutes Branch prior to first meal of the day semaglutide 2021-0 Yes [id number] 7mg Take 7 mg Univers 7 mg Tab 9-24 by mouth ity of 00:00: daily. Take > 30 Medical minutes Branch prior to first meal of the day semaglutide 0 Yes [id number] 7mg Take 7 mg Univers 7 mg Tab 9-24 by mouth ity of 00:00: daily. Take > 30 Medical minutes Branch prior to first meal of the day bumetanide Yes 3mg 3 mg, Univer s (BUMEX) 04-24 Oral, QHS, ity of tablet 3 mg 02:00: First dose [place] 00 on Thu Medical 04/23/22 at Branch 2100, Until Discontinu ed, Routine omeprazole Yes 40mg 40 mg, Unive rs (PRILOSEC) 04-23 Oral, ity of capsule 40 14:00: DAILY, [place] mg 00 First dose Medical on Thu Branch 04/23/22 at 0900, Until Discontinu ed spironolact Yes 50mg 50 mg, Univ ers one 04-23 Oral, ity of (ALDACTONE) 14:00: DAILY, [place] tablet 50 00 First dose Medi [place]enn[place] mg on Thu Branch 04/23/22 at 0900, Until Discontinu ed, Routine aspirin EC 2022-0 Yes 81mg 81 mg, Unive rs tablet 81 04-23 Oral, ity of mg 14:00: DAILY, [place] First dose Medical on Thu [place] 04/23/22 at 0900, Until Discontinu ed, Routine carvediloL 2021-0 Yes 25mg 25 mg, Unive rs (COREG) 04-23 Oral, BID ity of tablet 25 13:00: MEALS, First dose Medical on Thu [place] 04/23/22 at 0800, Until Discontinu ed, Routine tiZANidine 2021-0 Yes 2mg Take 2 mg Un [facility] 2 mg tablet 04-23 by mouth ity of 11:56: every 8 [place] [address] (eight) Medical hours as Branch needed. carvediloL 2021-0 Yes 25mg Take 25 mg U nivers (COREG) 25 04-23 by mouth ity o f mg tablet 11:56: in the [place] [address] morning Medical and 25 mg Branch in the evening. Take with meals. tiZANidine 2021-0 Yes 2mg Take 2 mg [facility] 2 mg tablet 04-23 by mouth ity of 11:56: every 8 [place] [address] (eight) Medical hours as Branch needed. carvediloL 2021-0 Yes 25mg Take 25 mg U nivers (COREG) 25 04-23 by mouth ity o f mg tablet 11:56: in the [place] [address] morning Medical and 25 mg Branch in the evening. Take with meals. atorvastati 0 Yes 80mg 80 mg, Univ ers n (LIPITOR) 04-23 Oral, QHS, it y of tablet 80 02:00: First dose [place] mg on [facility] 04/22/22 at Branch 2100, Until Discontinu ed, Routine gabapentin 0 Yes 100mg 100 mg, Uni vers (NEURONTIN) 04-23 Oral, TID, it y of capsule 100 01:00: First dose [place] mg 00 on [facility] 04/22/22 at Branch 2000, Until Discontinu ed, Routine apixaban 2021-0 Yes 1358 5mg 5 mg, Univers (ELIQUIS) 04-23 Oral, BID, ity of tablet 5 mg 01:00: First dose [place] 00 on [facility] 04/22/22 at Branch 2000, Until Discontinu ed, Routine
Indicatio ns: Non-Valvul ar Atrial Fibrillati on HYDROcodone 2021- Yes 1{tbl} 1 tablet, Univers -acetaminop 04-23 Oral, ity of hen (NORCO 00:16: 00:15 Q6HPRN, [place] as 5) 5-325 mg 33 :33 Starting Medi jennifer tablet [address] [facility] tablet 04/22/22 at 1916, Until [place] 04/24/22 at 1915, Routine, Pain (scale 4-6) acetaminoph Yes 650mg 650 mg, Un dino en 04-23 Oral, ity of (TYLENOL) 00:16: Q6HPRN, [place] tablet 650 30 Starting Medic al mg on [facility] 04/22/22 at 1916, Until Discontinu ed, Routine, Pain (scale 1-3) HYDROcodone 2021- No 1{tbl} 1 tablet, Univers -acetaminop 04-22 Oral, ity of hen (NORCO) 17:00: 16:58 ONCE, 1 [place] 10-325 mg 00 :00 dose, On Medica l tablet 1 [facility] tablet 04/22/22 at 1200, Routine amLODIPine Yes 10mg 10 mg, Unive rs (NORVASC) 04-22 Oral, ity of tablet 10 16:15: DAILY, [place] mg 00 First dose Medical on [facility] 04/22/22 at 1115, Until Discontinu ed, Routine bumetanide Yes 4mg 4 mg, Univer s (BUMEX) 04-22 Oral, ity of tablet 4 mg 16:15: DAILY, [place] 00 First dose Medical on [facility] 04/22/22 at 1115, Until Discontinu ed, Routine carvediloL 2021- No 25mg 25 mg, Univ ers (COREG) 04-22 Oral, BID ity of tablet 25 16:15: 00:09 MEALS, [place] mg 00 :57 First dose Medical on [facility] 04/22/22 at 1115, Until Discontinu ed, Routine furosemide 2021- No 40mg 40 mg, IV U nivers (LASIX) 04-22 Push, ity of injection 15:00: 15:26 ONCE, 1 [place] 40 mg 00 :00 dose, On Medical Tue Branch 04/22/22 at 1000, MJ colchicine 2021-0 2021- No 1.2mg 1.2 mg, Un dino (COLCRYS) 04-17 Oral, ity of tablet 1.2 13:30: 12:39 ONCE, 1 [place] mg 00 :00 dose, On Medical [place] Branch 04/17/22 at 0830, Routine HYDROcodone 2021-2021- No 1{tbl} 1 tablet, [facility] -acetaminop 04-17 Oral, ity of hen (NORCO) 13:30: 12:39 ONCE, 1 [place] 10-325 mg 00 :00 dose, On Medica l tablet 1 [place] Branch tablet 04/17/22 at 0830, Routine tiZANidine 2021-0 Yes 2mg Take 2 mg Un [facility] 2 mg tablet 8-31 by mouth ity of 16:18: every 8 [place] [address] (eight) Medical hours as Branch needed. tiZANidine 2-0 Yes 2mg Take 2 mg [facility] 2 mg tablet 8-31 by mouth ity of 16:18: every 8 [place] [address] (eight) Medical hours as Branch needed. tiZANidine 2022-0 Yes 2mg Take 2 mg Un d[facility] 2 mg tablet 8-31 by mouth ity of 16:18: every 8 [place] 41 (eight) Medical hours as Branch needed. tiZANidine 2022-0 Yes 2mg Take 2 mg Un dino 2 mg tablet 8-31 by mouth ity of 16:18: every 8 [place] [address] (eight) Medical hours as Branch needed. tiZANidine 2-0 Yes 2mg Take 2 mg Un dino 2 mg tablet 8-31 by mouth ity of 16:18: every 8 [place] 41 (eight) Medical hours as Branch needed. blood sugar 2021-0 Yes [id number] Check U nivers diagnostic 8-24 blood ity of strip 00:00: sugar 2 [place] 00 times a Medical day. Branch E11.9. Brand per insurance. Blood-Gluco 2021-0 Yes [id number] Check U nivers se Meter 8-24 sugars 2 ity of Kit 00:00: times a [place] 00 day. Dx. Medical Code E11.9 Branch Brand per Insurance blood sugar 2022-0 Yes [id number] Check U nivers diagnostic 8-24 blood ity of strip 00:00: sugar 2 00 times a Medical day. Branch E11.9. Brand per insurance. Blood-Gluco 2022-0 Yes [id number] Check U nivers se Meter 8-24 sugars 2 ity of Kit 00:00: times a 00 day. Dx. Medical Code E11.9 Branch Brand per Insurance blood sugar 2022-0 Yes [id number] Check U nivers diagnostic 8-24 blood ity of strip 00:00: sugar 2 times a Medical day. Branch E11.9. Brand per insurance. Blood-Gluco 2022-0 Yes [id number] Check U nivers se Meter 8-24 sugars 2 ity of Kit 00:00: times a 00 day. Dx. Medical Code E11.9 Branch Brand per Insurance blood sugar 2022-0 Yes [id number] Check U nivers diagnostic 8-24 blood ity of strip 00:00: sugar 2 times a Medical day. Branch E11.9. Brand per insurance. Blood-Gluco 2022-0 Yes [id number] Check U nivers se Meter 8-24 sugars 2 ity of Kit 00:00: times a 00 day. Dx. Medical Code E11.9 Branch Brand per Insurance blood sugar 2022-0 Yes [id number] Check U nivers diagnostic 8-24 blood ity of strip 00:00: sugar 2 times a Medical day. Branch E11.9. Brand per insurance. Blood-Gluco 2022-0 Yes [id number] Check U nivers se Meter 8-24 sugars 2 ity of Kit 00:00: times a 00 day. Dx. Medical Code E11.9 Branch Brand per Insurance blood sugar 2022-0 Yes [id number] Check U nivers diagnostic 8-24 blood ity of strip 00:00: sugar 2 times a Medical day. Branch E11.9. Brand per insurance. Blood-Gluco 2022-0 Yes [id number] Check U nivers se Meter 8-24 sugars 2 ity of Kit 00:00: times a 00 day. Dx. Medical Code E11.9 Branch Brand per Insurance blood sugar 2022-0 Yes [id number] Check U nivers diagnostic 8-24 blood ity of strip 00:00: sugar 2 [place] 00 times a Medical day. Branch E11.9. Brand per insurance. Blood-Gluco 2022-0 Yes [id number] Check U nivers se Meter 8-24 sugars 2 ity of Kit 00:00: times a day. Dx. Medical Code E11.9 Branch Brand per Insurance blood sugar 2022-0 Yes [id number] Check U nivers diagnostic 8-24 blood ity of strip 00:00: sugar 2 times a Medical day. Branch E11.9. Brand per insurance. Blood-Gluco 2022-0 Yes [id number] Check U nivers se Meter 8-24 sugars 2 ity of Kit 00:00: times a day. Dx. Medical Code E11.9 Branch Brand per Insurance blood sugar 2022-0 Yes [id number] Check U nivers diagnostic 8-24 blood ity of strip 00:00: sugar 2 times a Medical day. Branch E11.9. Brand per insurance. Blood-Gluco 2022-0 Yes [id number] Check U nivers se Meter 8-24 sugars 2 ity of Kit 00:00: times a day. Dx. Medical Code E11.9 Branch Brand per Insurance blood sugar 2022-0 Yes [id number] Check U nivers diagnostic 8-24 blood ity of strip 00:00: sugar 2 times a Medical day. Branch E11.9. Brand per insurance. Blood-Gluco 2022-0 Yes [id number] Check U nivers se Meter 8-24 sugars 2 ity of Kit 00:00: times a day. Dx. Medical Code E11.9 Branch Brand per Insurance blood sugar 2022-0 Yes [id number] Check U nivers diagnostic 8-24 blood ity of strip 00:00: sugar 2 times a Medical day. Branch E11.9. Brand per insurance. Blood-Gluco 2022-0 Yes [id number] Check U nivers se Meter 8-24 sugars 2 ity of Kit 00:00: times a day. Dx. Medical Code E11.9 Branch Brand per Insurance blood sugar 2022-0 Yes [id number] Check U nivers diagnostic 8-24 blood ity of strip 00:00: sugar 2 times a Medical day. Branch E11.9. Brand per insurance. Blood-Gluco 2022-0 Yes [id number] Check U nivers se Meter 8-24 sugars 2 ity of Kit 00:00: times a [place] 00 day. Dx. Medical Code E11.9 Branch Brand per Insurance blood sugar 2022-0 Yes [id number] Check U nivers diagnostic 8-24 blood ity of strip 00:00: sugar 2 times a Medical day. Branch E11.9. Brand per insurance. Blood-Gluco 2022-0 Yes [id number] Check U nivers se Meter 8-24 sugars 2 ity of Kit 00:00: times a 00 day. Dx. Medical Code E11.9 Branch Brand per Insurance blood sugar 2022-0 Yes [id number] Check U nivers diagnostic 8-24 blood ity of strip 00:00: sugar 2 times a Medical day. Branch E11.9. Brand per insurance. Blood-Gluco 2022-0 Yes [id number] Check U nivers se Meter 8-24 sugars 2 ity of Kit 00:00: times a 00 day. Dx. Medical Code E11.9 Branch Brand per Insurance blood sugar 2022-0 Yes [id number] Check U nivers diagnostic 8-24 blood ity of strip 00:00: sugar 2 times a Medical day. Branch E11.9. Brand per insurance. Blood-Gluco 2022-0 Yes [id number] Check U nivers se Meter 8-24 sugars 2 ity of Kit 00:00: times a 00 day. Dx. Medical Code E11.9 Branch Brand per Insurance blood sugar 2022-0 Yes [id number] Check U nivers diagnostic 8-24 blood ity of strip 00:00: sugar 2 times a Medical day. Branch E11.9. Brand per insurance. Blood-Gluco 2022-0 Yes [id number] Check U nivers se Meter 8-24 sugars 2 ity of Kit 00:00: times a 00 day. Dx. Medical Code E11.9 Branch Brand per Insurance blood sugar 2022-0 Yes [id number] Check U nivers diagnostic 8-24 blood ity of strip 00:00: sugar 2 times a Medical day. Branch E11.9. Brand per insurance. Blood-Gluco 2022-0 Yes [id number] Check U nivers se Meter 8-24 sugars 2 ity of Kit 00:00: times a 00 day. Dx. Medical Code E11.9 Branch Brand per Insurance blood sugar 2022-0 Yes [id number] Check U nivers diagnostic 8-24 blood ity of strip 00:00: sugar 2 [place] times a Medical day. Branch E11.9. Brand per insurance. Blood-Gluco 2022-0 Yes [id number] Check U nivers se Meter 8-24 sugars 2 ity of Kit 00:00: times a 00 day. Dx. Medical Code E11.9 Branch Brand per Insurance blood sugar 2022-0 Yes [id number] Check U nivers diagnostic 8-24 blood ity of strip 00:00: sugar 2 [place] times a Medical day. Branch E11.9. Brand per insurance. Blood-Gluco 2022-0 Yes [id number] Check U nivers se Meter 8-24 sugars 2 ity of Kit 00:00: times a 00 day. Dx. Medical Code E11.9 Branch Brand per Insurance blood sugar 2022-0 Yes [id number] Check U nivers diagnostic 8-24 blood ity of strip 00:00: sugar 2 times a Medical day. Branch E11.9. Brand per insurance. Blood-Gluco 2022-0 Yes [id number] Check U nivers se Meter 8-24 sugars 2 ity of Kit 00:00: times a 00 day. Dx. Medical Code E11.9 Branch Brand per Insurance blood sugar 2022-0 Yes [id number] Check U nivers diagnostic 8-24 blood ity of strip 00:00: sugar 2 times a Medical day. Branch E11.9. Brand per insurance. Blood-Gluco 2022-0 Yes [id number] Check U nivers se Meter 8-24 sugars 2 ity of Kit 00:00: times a day. Dx. Medical Code E11.9 Branch Brand per Insurance blood sugar 2022-0 Yes [id number] Check U nivers diagnostic 8-24 blood ity of strip 00:00: sugar 2 times a Medical day. Branch E11.9. Brand per insurance. Blood-Gluco 2022-0 Yes [id number] Check U nivers se Meter 8-24 sugars 2 ity of Kit 00:00: times a 00 day. Dx. Medical Code E11.9 Branch Brand per Insurance blood sugar 2022-0 Yes [id number] Check U nivers diagnostic 8-24 blood ity of strip 00:00: sugar 2 times a Medical day. Branch E11.9. Brand per insurance. Blood-Gluco 2022-0 Yes [id number] Check U nivers se Meter 8-24 sugars 2 ity of Kit 00:00: times a [place] 00 day. Dx. Medical Code E11.9 Branch Brand per Insurance blood sugar 2022-0 Yes [id number] Check U nivers diagnostic 8-24 blood ity of strip 00:00: sugar 2 [place] 00 times a Medical day. Branch E11.9. Brand per insurance. Blood-Gluco 2022-0 Yes [id number] Check U nivers se Meter 8-24 sugars 2 ity of Kit 00:00: times a [place] 00 day. Dx. Medical Code E11.9 Branch Brand per Insurance blood sugar 2022-0 Yes [id number] Check U nivers diagnostic 8-24 blood ity of strip 00:00: sugar 2 [place] times a Medical day. Branch E11.9. Brand per insurance. Blood-Gluco 2022-0 Yes [id number] Check U nivers se Meter 8-24 sugars 2 ity of Kit 00:00: times a 00 day. Dx. Medical Code E11.9 Branch Brand per Insurance blood sugar 2022-0 Yes [id number] Check U nivers diagnostic 8-24 blood ity of strip 00:00: sugar 2 times a Medical day. Branch E11.9. Brand per insurance. Blood-Gluco 2022-0 Yes [id number] Check U nivers se Meter 8-24 sugars 2 ity of Kit 00:00: times a 00 day. Dx. Medical Code E11.9 Branch Brand per Insurance blood sugar 2022-0 Yes [id number] Check U nivers diagnostic 8-24 blood ity of strip 00:00: sugar 2 times a Medical day. Branch E11.9. Brand per insurance. Blood-Gluco 2022-0 Yes [id number] Check U nivers se Meter 8-24 sugars 2 ity of Kit 00:00: times a [place] 00 day. Dx. Medical Code E11.9 Branch Brand per Insurance blood sugar 2022-0 Yes [id number] Check U nivers diagnostic 8-24 blood ity of strip 00:00: sugar 2 [place] 00 times a Medical day. Branch E11.9. Brand per insurance. Blood-Gluco 2022-0 Yes [id number] Check U nivers se Meter 8-24 sugars 2 ity of Kit 00:00: times a [place] 00 day. Dx. Medical Code E11.9 Branch Brand per Insurance blood sugar 2022-0 Yes [id number] Check U nivers diagnostic 8-24 blood ity of strip 00:00: sugar 2 times a Medical day. Branch E11.9. Brand per insurance. Blood-Gluco 2022-0 Yes [id number] Check U nivers se Meter 8-24 sugars 2 ity of Kit 00:00: times a day. Dx. Medical Code E11.9 Branch Brand per Insurance blood sugar 2022-0 Yes [id number] Check U nivers diagnostic 8-24 blood ity of strip 00:00: sugar 2 times a Medical day. Branch E11.9. Brand per insurance. Blood-Gluco 2022-0 Yes [id number] Check U nivers se Meter 8-24 sugars 2 ity of Kit 00:00: times a day. Dx. Medical Code E11.9 Branch Brand per Insurance blood sugar 2022-0 Yes [id number] Check U nivers diagnostic 8-24 blood ity of strip 00:00: sugar 2 times a Medical day. Branch E11.9. Brand per insurance. Blood-Gluco 2022-0 Yes [id number] Check U nivers se Meter 8-24 sugars 2 ity of Kit 00:00: times a day. Dx. Medical Code E11.9 Branch Brand per Insurance blood sugar 2022-0 Yes [id number] Check U nivers diagnostic 8-24 blood ity of strip 00:00: sugar 2 times a Medical day. Branch E11.9. Brand per insurance. Blood-Gluco 2022-0 Yes [id number] Check U nivers se Meter 8-24 sugars 2 ity of Kit 00:00: times a day. Dx. Medical Code E11.9 Branch Brand per Insurance blood sugar 2022-0 Yes [id number] Check U nivers diagnostic 8-24 blood ity of strip 00:00: sugar 2 times a Medical day. Branch E11.9. Brand per insurance. Blood-Gluco 2022-0 Yes [id number] Check U nivers se Meter 8-24 sugars 2 ity of Kit 00:00: times a day. Dx. Medical Code E11.9 Branch Brand per Insurance blood sugar 2022-0 Yes [id number] Check U nivers diagnostic 8-24 blood ity of strip 00:00: sugar 2 [place] 00 times a Medical day. Branch E11.9. Brand per insurance. Blood-Gluco 2022-0 Yes [id number] Check U nivers se Meter 8-24 sugars 2 ity of Kit 00:00: times a [place] 00 day. Dx. Medical Code E11.9 Branch Brand per Insurance blood sugar 2022-0 Yes [id number] Check U nivers diagnostic 8-24 blood ity of strip 00:00: sugar 2 times a Medical day. Branch E11.9. Brand per insurance. Blood-Gluco 2022-0 Yes [id number] Check U nivers se Meter 8-24 sugars 2 ity of Kit 00:00: times a 00 day. Dx. Medical Code E11.9 Branch Brand per Insurance blood sugar 2022-0 Yes [id number] Check U nivers diagnostic 8-24 blood ity of strip 00:00: sugar 2 times a Medical day. Branch E11.9. Brand per insurance. Blood-Gluco 2022-0 Yes [id number] Check U nivers se Meter 8-24 sugars 2 ity of Kit 00:00: times a 00 day. Dx. Medical Code E11.9 Branch Brand per Insurance blood sugar 2022-0 Yes [id number] Check U nivers diagnostic 8-24 blood ity of strip 00:00: sugar 2 times a Medical day. Branch E11.9. Brand per insurance. Blood-Gluco 2022-0 Yes [id number] Check U nivers se Meter 8-24 sugars 2 ity of Kit 00:00: times a day. Dx. Medical Code E11.9 Branch Brand per Insurance blood sugar 2022-0 Yes [id number] Check U nivers diagnostic 8-24 blood ity of strip 00:00: sugar 2 times a Medical day. Branch E11.9. Brand per insurance. Blood-Gluco 2022-0 Yes [id number] Check U nivers se Meter 8-24 sugars 2 ity of Kit 00:00: times a 00 day. Dx. Medical Code E11.9 Branch Brand per Insurance blood sugar 2022-0 Yes [id number] Check U nivers diagnostic 8-24 blood ity of strip 00:00: sugar 2 times a Medical day. Branch E11.9. Brand per insurance. Blood-Gluco 2022-0 Yes [id number] Check U nivers se Meter 8-24 sugars 2 ity of Kit 00:00: times a [place] 00 day. Dx. Medical Code E11.9 Branch Brand per Insurance blood sugar 2022-0 Yes [id number] Check U nivers diagnostic 8-24 blood ity of strip 00:00: sugar 2 [place] times a Medical day. Branch E11.9. Brand per insurance. Blood-Gluco 2022-0 Yes [id number] Check U nivers se Meter 8-24 sugars 2 ity of Kit 00:00: times a [place] 00 day. Dx. Medical Code E11.9 Branch Brand per Insurance blood sugar 2022-0 Yes [id number] Check U nivers diagnostic 8-24 blood ity of strip 00:00: sugar 2 times a Medical day. Branch E11.9. Brand per insurance. Blood-Gluco 2022-0 Yes [id number] Check U nivers se Meter 8-24 sugars 2 ity of Kit 00:00: times a 00 day. Dx. Medical Code E11.9 Branch Brand per Insurance blood sugar 2022-0 Yes [id number] Check U nivers diagnostic 8-24 blood ity of strip 00:00: sugar 2 times a Medical day. Branch E11.9. Brand per insurance. Blood-Gluco 2022-0 Yes [id number] Check U nivers se Meter 8-24 sugars 2 ity of Kit 00:00: times a 00 day. Dx. Medical Code E11.9 Branch Brand per Insurance blood sugar 2022-0 Yes [id number] Check U nivers diagnostic 8-24 blood ity of strip 00:00: sugar 2 times a Medical day. Branch E11.9. Brand per insurance. Blood-Gluco 2022-0 Yes [id number] Check U nivers se Meter 8-24 sugars 2 ity of Kit 00:00: times a [place] 00 day. Dx. Medical Code E11.9 Branch Brand per Insurance blood sugar 2022-0 Yes [id number] Check U nivers diagnostic 8-24 blood ity of strip 00:00: sugar 2 times a Medical day. Branch E11.9. Brand per insurance. Blood-Gluco 2022-0 Yes [id number] Check U nivers se Meter 8-24 sugars 2 ity of Kit 00:00: times a [place] 00 day. Dx. Medical Code E11.9 Branch Brand per Insurance semaglutide 2021- No [id number] 3mg Take 3 mg [facility] 3 mg Tab 03-26 by mouth ity of 00:: 04:59 daily for [place] 30 days. Medical Take > 30 Branch minutes prior to first meal of the day. semaglutide 2021- No [id number] 3mg Take 3 mg [facility] 3 mg Tab 03-26 by mouth ity of 00:: 04:59 daily for [place] : 30 days. Medical Take > 30 Branch minutes prior to first meal of the day. semaglutide 2021- No [id number] 3mg Take 3 mg [facility] 3 mg Tab 03-26 by mouth ity of 00:: :59 daily for [place] days. Medical Take > 30 Branch minutes prior to first meal of the day. semaglutide 2021- No [id number] 3mg Take 3 mg [facility] 3 mg Tab 03-26 by mouth ity of 00:: :59 daily for [place] 30 days. Medical Take > 30 Branch minutes prior to first meal of the day. semaglutide 2021- No [id number] 3mg Take 3 mg [facility] 3 mg Tab 03-26 by mouth ity of 00:: :59 daily for [place] 30 . Medical Take > 30 Branch minutes prior to first meal of the day. semaglutide 2- No [id number] 3mg Take 3 mg [facility] 3 mg Tab 03-26 by mouth ity of 00:: 04:59 daily for [place] 30 days. Medical Take > 30 Branch minutes prior to first meal of the day. amLODIPine 2021-2021- No [id number] 10mg Take 1 [facility] 10 mg 8-18 -18 tablet by ity of tablet 00:00: 04:59 mouth in [place] 00 :00 the Medical morning Branch for 30 days. amLODIPine 2021-0 2021- No [id number] 10mg Take 1 [facility] 10 mg 8-18 -18 tablet by ity of tablet 00:00: 04:59 mouth in [place] 00 :00 the [facility] morning Branch for 30 days. amLODIPine 2021- No [id number] 10mg Take 1 [facility] 10 mg 8-18 18 tablet by ity of tablet 00:00: 04:59 mouth in [place] 00 :00 the Medical morning Branch for 30 days. carvediloL 2021- No [id number] 25mg Take 1 [facility] 25 mg 8-05 tablet by ity of tablet 00:00: 04:59 mouth in [place] 00 :00 the Medical morning Branch and 1 tablet in the evening. Take with meals. Do all this for 30 days. lisinopriL 2021- No [id number] 10mg Take 1 [facility] 10 mg 8-04-07 tablet by ity of tablet 00:00: 04:59 mouth in [place] 00 :00 the Medical morning Branch and 1 tablet in the evening. Do all this for 30 days. bumetanide Yes [id number] TAKE 4 [facility] 1 mg tablet 8-04 TABLETS BY it y of 00:00: MOUTH IN [place] [address] THE Medical MORNING Branch AND 3TABLETS AT NIGHT bumetanide 2021-0 Yes [id number] TAKE 4 [facility] 1 mg tablet 8-04 TABLETS BY it y of 00:00: MOUTH IN [place] [address] THE Medical MORNING Branch AND 3TABLETS AT NIGHT bumetanide 2021-0 Yes [id number] TAKE 4 [facility] 1 mg tablet 8-04 TABLETS BY it y of 00:00: MOUTH IN [place] [address] THE Medical MORNING Branch AND 3TABLETS AT NIGHT bumetanide 2021-0 Yes [id number] TAKE 4 [facility] 1 mg tablet 8-04 TABLETS BY it y of 00:00: MOUTH IN [place] [address] THE Medical MORNING Branch AND 3TABLETS AT NIGHT bumetanide 2021-0 Yes [id number] TAKE 4 [facility] 1 mg tablet 8-04 TABLETS BY it y of 00:00: MOUTH IN [place] [address] THE Medical MORNING Branch AND 3TABLETS AT NIGHT bumetanide 2021-0 Yes [id number] TAKE 4 [facility] 1 mg tablet 8-04 TABLETS BY it y of 00:00: MOUTH IN [place] [address] THE Medical MORNING Branch AND 3TABLETS AT NIGHT bumetanide 2021-0 Yes [id number] TAKE 4 [facility] 1 mg tablet 8-04 TABLETS BY it y of 00:00: MOUTH IN [place] [address] THE Medical MORNING Branch AND 3TABLETS AT NIGHT bumetanide 2022-0 Yes [id number] TAKE 4 [facility] 1 mg tablet 8-04 TABLETS BY it y of 00:00: MOUTH IN [place] 00 THE Medical MORNING Branch AND 3TABLETS AT NIGHT bumetanide 2021-0 Yes [id number] TAKE 4 [facility] 1 mg tablet 8-04 TABLETS BY it y of 00:00: MOUTH IN [place] 00 THE Medical MORNING Branch AND 3TABLETS AT NIGHT bumetanide 2021-0 Yes [id number] TAKE 4 [facility] 1 mg tablet 8-04 TABLETS BY it y of 00:00: MOUTH IN [place] 00 THE Medical MORNING Branch AND 3TABLETS AT NIGHT bumetanide 2021-0 Yes [id number] TAKE 4 [facility] 1 mg tablet 8-04 TABLETS BY it y of 00:00: MOUTH IN [place] 00 THE Medical MORNING Branch AND 3TABLETS AT NIGHT bumetanide 2021-0 Yes [id number] TAKE 4 [facility] 1 mg tablet 8-04 TABLETS BY it y of 00:00: MOUTH IN [place] 00 THE Medical MORNING Branch AND 3TABLETS AT NIGHT bumetanide 0 Yes [id number] TAKE 4 [facility] 1 mg tablet 8-04 TABLETS BY it y of 00:00: MOUTH IN [place] 00 THE Medical MORNING Branch AND 3TABLETS AT NIGHT bumetanide 2021-0 Yes [id number] TAKE 4 [facility] 1 mg tablet 8-04 TABLETS BY it y of 00:00: MOUTH IN [place] 00 THE Medical MORNING Branch AND 3TABLETS AT NIGHT bumetanide 2021-0 Yes [id number] TAKE 4 [facility] 1 mg tablet 8-04 TABLETS BY it y of 00:00: MOUTH IN [place] 00 THE Medical MORNING Branch AND 3TABLETS AT NIGHT bumetanide 2021-0 Yes [id number] TAKE 4 [facility] 1 mg tablet 8-04 TABLETS BY it y of 00:00: MOUTH IN [place] 00 THE Medical MORNING Branch AND 3TABLETS AT NIGHT bumetanide 2021-0 Yes [id number] TAKE 4 [facility] 1 mg tablet 8-04 TABLETS BY it y of 00:00: MOUTH IN [place] 00 THE Medical MORNING Branch AND 3TABLETS AT NIGHT bumetanide 2021-0 Yes [id number] TAKE 4 [facility] 1 mg tablet 8-04 TABLETS BY it y of 00:00: MOUTH IN [place] 00 THE Medical MORNING Branch AND 3TABLETS AT NIGHT bumetanide 2022-0 Yes [id number] TAKE 4 [facility] 1 mg tablet 8-04 TABLETS BY it y of 00:00: MOUTH IN [place] 00 THE Medical MORNING Branch AND 3TABLETS AT NIGHT bumetanide 0 Yes [id number] TAKE 4 [facility] 1 mg tablet 8-04 TABLETS BY it y of 00:00: MOUTH IN [place] 00 THE Medical MORNING Branch AND 3TABLETS AT NIGHT bumetanide 0 Yes [id number] TAKE 4 [facility] 1 mg tablet 8-04 TABLETS BY it y of 00:00: MOUTH IN [place] 00 THE Medical MORNING Branch AND 3TABLETS AT NIGHT bumetanide 0 Yes [id number] TAKE 4 [facility] 1 mg tablet 8-04 TABLETS BY it y of 00:00: MOUTH IN [place] 00 THE Medical MORNING Branch AND 3TABLETS AT NIGHT bumetanide 0 Yes [id number] TAKE 4 [facility] 1 mg tablet 8-04 TABLETS BY it y of 00:00: MOUTH IN [place] 00 THE Medical MORNING Branch AND 3TABLETS AT NIGHT bumetanide Yes [id number] TAKE 4 [facility] 1 mg tablet 8-04 TABLETS BY it y of 00:00: MOUTH IN [place] 00 THE Medical MORNING Branch AND 3TABLETS AT NIGHT bumetanide 0 Yes [id number] TAKE 4 [facility] 1 mg tablet 8-04 TABLETS BY it y of 00:00: MOUTH IN [place] 00 THE Medical MORNING Branch AND 3TABLETS AT NIGHT bumetanide 0 Yes [id number] TAKE 4 [facility] 1 mg tablet 8-04 TABLETS BY it y of 00:00: MOUTH IN [place] 00 THE Medical MORNING Branch AND 3TABLETS AT NIGHT bumetanide 0 Yes [id number] TAKE 4 [facility] 1 mg tablet 8-04 TABLETS BY it y of 00:00: MOUTH IN [place] 00 THE Medical MORNING Branch AND 3TABLETS AT NIGHT bumetanide 0 Yes [id number] TAKE 4 [facility] 1 mg tablet 8-04 TABLETS BY it y of 00:00: MOUTH IN [place] 00 THE Medical MORNING Branch AND 3TABLETS AT NIGHT bumetanide 0 Yes [id number] TAKE 4 [facility] 1 mg tablet 8-04 TABLETS BY it y of 00:00: MOUTH IN [place] 00 THE Medical MORNING Branch AND 3TABLETS AT NIGHT bumetanide 0 Yes [id number] TAKE 4 [facility] 1 mg tablet 8-04 TABLETS BY it y of 00:00: MOUTH IN [place] 00 THE Medical MORNING Branch AND 3TABLETS AT NIGHT bumetanide 2021-0 Yes [id number] TAKE 4 [facility] 1 mg tablet 8-04 TABLETS BY it y of 00:00: MOUTH IN [place] 00 THE Medical MORNING Branch AND 3TABLETS AT NIGHT bumetanide 2021-0 Yes [id number] TAKE 4 [facility] 1 mg tablet 8-04 TABLETS BY it y of 00:00: MOUTH IN [place] 00 THE Medical MORNING Branch AND 3TABLETS AT NIGHT bumetanide 2021-0 Yes [id number] TAKE 4 [facility] 1 mg tablet 8-04 TABLETS BY it y of 00:00: MOUTH IN [place] 00 THE Medical MORNING Branch AND 3TABLETS AT NIGHT bumetanide 2021-0 Yes [id number] TAKE 4 [facility] 1 mg tablet 8-04 TABLETS BY it y of 00:00: MOUTH IN [place] 00 THE Medical MORNING Branch AND 3TABLETS AT NIGHT bumetanide 2021-0 Yes [id number] TAKE 4 [facility] 1 mg tablet 8-04 TABLETS BY it y of 00:00: MOUTH IN [place] 00 THE Medical MORNING Branch AND 3TABLETS AT NIGHT bumetanide 2021-0 Yes [id number] TAKE 4 [facility] 1 mg tablet 8-04 TABLETS BY it y of 00:00: MOUTH IN [place] 00 THE Medical MORNING Branch AND 3TABLETS AT NIGHT bumetanide 2021-0 Yes [id number] TAKE 4 [facility] 1 mg tablet 8-04 TABLETS BY it y of 00:00: MOUTH IN [place] 00 THE Medical MORNING Branch AND 3TABLETS AT NIGHT bumetanide 2021-0 Yes [id number] TAKE 4 [facility] 1 mg tablet 8-04 TABLETS BY it y of 00:00: MOUTH IN [place] 00 THE Medical MORNING Branch AND 3TABLETS AT NIGHT bumetanide 2021-0 Yes [id number] TAKE 4 [facility] 1 mg tablet 8-04 TABLETS BY it y of 00:00: MOUTH IN [place] 00 THE Medical MORNING Branch AND 3TABLETS AT NIGHT bumetanide 2021-0 Yes [id number] TAKE 4 [facility] 1 mg tablet 8-04 TABLETS BY it y of 00:00: MOUTH IN [place] 00 THE Medical MORNING Branch AND 3TABLETS AT NIGHT bumetanide 2021-0 Yes [id number] TAKE 4 [facility] 1 mg tablet 8-04 TABLETS BY it y of 00:00: MOUTH IN [place] 00 THE Medical MORNING Branch AND 3TABLETS AT NIGHT bumetanide 2-0 Yes [id number] TAKE 4 [facility] 1 mg tablet 8-04 TABLETS BY it y of 00:00: MOUTH IN [place] 00 THE Medical MORNING Branch AND 3TABLETS AT NIGHT bumetanide 2-0 Yes [id number] TAKE 4 [facility] 1 mg tablet 8-04 TABLETS BY it y of 00:00: MOUTH IN [place] 00 THE Medical MORNING Branch AND 3TABLETS AT NIGHT bumetanide 2-0 Yes [id number] TAKE 4 [facility] 1 mg tablet 8-04 TABLETS BY it y of 00:00: MOUTH IN [place] 00 THE Medical MORNING Branch AND 3TABLETS AT NIGHT bumetanide 2-0 Yes [id number] TAKE 4 [facility] 1 mg tablet 8-04 TABLETS BY it y of 00:00: MOUTH IN [place] 00 THE Medical MORNING Branch AND 3TABLETS AT NIGHT Magnesium 2-0 Yes 400mg Take 400 Uni vers Oxide 420 8-02 mg by ity of mg Tab 00:00: mouth 00 daily. Medical Branch Magnesium 2022-0 Yes 400mg Take 400 [facility] vers Oxide 420 8-02 mg by ity of mg Tab 00:00: mouth 00 daily. Medical Branch Magnesium 2022-0 Yes 400mg Take 400 [facility] vers Oxide 420 8-02 mg by ity of mg Tab 00:00: mouth 00 daily. Medical Branch Magnesium 2022-0 Yes 400mg Take 400 [facility] vers Oxide 420 8-02 mg by ity of mg Tab 00:00: mouth 00 daily. Medical Branch Magnesium 2022-0 Yes 400mg Take 400 [facility] vers Oxide 420 8-02 mg by ity of mg Tab 00:00: mouth [place] 00 daily. Medical Branch Magnesium 2022-0 Yes 400mg Take 400 [facility] vers Oxide 420 8-02 mg by ity of mg Tab 00:00: mouth [place] 00 daily. Medical Branch Magnesium 2022-0 Yes 400mg Take 400 [facility] vers Oxide 420 8-02 mg by ity of mg Tab 00:00: mouth [place] 00 daily. Medical Branch Magnesium 2022-0 Yes 400mg Take 400 Uni vers Oxide 420 8-02 mg by [facility] mg Tab 00:00: mouth [place] 00 daily. [facility] Magnesium 2022-0 Yes 400mg Take 400 [facility] Oxide 420 8-02 mg by [facility] mg Tab 00:00: mouth [place] 00 daily. [facility] Magnesium 2022-0 Yes 400mg Take 400 [facility] Oxide 420 8-02 mg by [facility] mg Tab 00:00: mouth [place] 00 daily. [facility] Magnesium 2022-0 Yes 400mg Take 400 [facility] Oxide 420 8-02 mg by [facility] mg Tab 00:00: mouth [place] 00 daily. [facility] Magnesium 2022-0 Yes 400mg Take 400 [facility] Oxide 420 8-02 mg by [facility] mg Tab 00:00: mouth [place] 00 daily. [facility] Magnesium 2022-0 Yes 400mg Take 400 [facility] Oxide 420 8-02 mg by [facility] mg Tab 00:00: mouth [place] 00 daily. [facility] Magnesium 2022-0 Yes 400mg Take 400 [facility] Oxide 420 8-02 mg by [facility] mg Tab 00:00: mouth [place] 00 daily. [facility] Magnesium 2022-0 Yes 400mg Take 400 [facility] Oxide 420 8-02 mg by [facility] mg Tab 00:00: mouth [place] 00 daily. [facility] Magnesium 2022-0 Yes 400mg Take 400 [facility] Oxide 420 8-02 mg by [facility] mg Tab 00:00: mouth [place] 00 daily. [facility] Magnesium 2022-0 Yes 400mg Take 400 [facility] Oxide 420 8-02 mg by [facility] mg Tab 00:00: mouth [place] 00 daily. [facility] Magnesium 2022-0 Yes 400mg Take 400 [facility] Oxide 420 8-02 mg by [facility] mg Tab 00:00: mouth [place] 00 daily. [facility] Magnesium 2022-0 Yes 400mg Take 400 [facility] Oxide 420 8-02 mg by [facility] mg Tab 00:00: mouth [place] 00 daily. [facility] Magnesium 2022-0 Yes 400mg Take 400 [facility] Oxide 420 8-02 mg by [facility] mg Tab 00:00: mouth [place] 00 daily. [facility] Magnesium 2022-0 Yes 400mg Take 400 [facility] Oxide 420 8-02 mg by [facility] mg Tab 00:00: mouth [place] 00 daily. [facility] Magnesium 2022-0 Yes 400mg Take 400 [facility] Oxide 420 8-02 mg by [facility] mg Tab 00:00: mouth [place] 00 daily. [facility] Magnesium 2022-0 Yes 400mg Take 400 [facility] Oxide 420 8-02 mg by [facility] mg Tab 00:00: mouth [place] 00 daily. [facility] Magnesium 2022-0 Yes 400mg Take 400 [facility] Oxide 420 8-02 mg by [facility] mg Tab 00:00: mouth [place] 00 daily. [facility] Magnesium 2022-0 Yes 400mg Take 400 [facility] Oxide 420 8-02 mg by [facility] mg Tab 00:00: mouth [place] 00 daily. [facility] Magnesium 2022-0 Yes 400mg Take 400 [facility] Oxide 420 8-02 mg by [facility] mg Tab 00:00: mouth [place] 00 daily. [facility] Magnesium 2022-0 Yes 400mg Take 400 [facility] Oxide 420 8-02 mg by [facility] mg Tab 00:00: mouth [place] 00 daily. [facility] Magnesium 2022-0 Yes 400mg Take 400 [facility] Oxide 420 8-02 mg by [facility] mg Tab 00:00: mouth [place] 00 daily. [facility] Magnesium 2022-0 Yes 400mg Take 400 [facility] Oxide 420 8-02 mg by [facility] mg Tab 00:00: mouth [place] 00 daily. [facility] Magnesium 2022-0 Yes 400mg Take 400 [facility] Oxide 420 8-02 mg by [facility] mg Tab 00:00: mouth [place] 00 daily. [facility] Magnesium 2022-0 Yes 400mg Take 400 [facility] Oxide 420 8-02 mg by [facility] mg Tab 00:00: mouth [place] 00 daily. [facility] Magnesium 2022-0 Yes 400mg Take 400 [facility] Oxide 420 8-02 mg by [facility] mg Tab 00:00: mouth [place] 00 daily. [facility] Magnesium 2022-0 Yes 400mg Take 400 [facility] Oxide 420 8-02 mg by [facility] mg Tab 00:00: mouth [place] 00 daily. [facility] Magnesium 2022-0 Yes 400mg Take 400 [facility] Oxide 420 8-02 mg by [facility] mg Tab 00:00: mouth [place] 00 daily. [facility] Magnesium 2022-0 Yes 400mg Take 400 [facility] Oxide 420 8-02 mg by [facility] mg Tab 00:00: mouth [place] 00 daily. [facility] Magnesium 2022-0 Yes 400mg Take 400 [facility] Oxide 420 8-02 mg by [facility] mg Tab 00:00: mouth [place] 00 daily. [facility] Magnesium 2022-0 Yes 400mg Take 400 [facility] Oxide 420 8-02 mg by [facility] mg Tab 00:00: mouth [place] 00 daily. [facility] Magnesium 2022-0 Yes 400mg Take 400 [facility] Oxide 420 8-02 mg by [facility] of mg Tab 00:00: mouth [place] 00 daily. [facility] Magnesium 2022-0 Yes 400mg Take 400 [facility] Oxide 420 8-02 mg by [facility] mg Tab 00:00: mouth [place] 00 daily. [facility] Magnesium 2022-0 Yes 400mg Take 400 [facility] Oxide 420 8-02 mg by [facility] mg Tab 00:00: mouth [place] 00 daily. [facility] Magnesium 2022-0 Yes 400mg Take 400 [facility] Oxide 420 8-02 mg by [facility] mg Tab 00:00: mouth [place] 00 daily. [facility] Magnesium 2022-0 Yes 400mg Take 400 [facility] Oxide 420 8-02 mg by [facility] mg Tab 00:00: mouth [place] 00 daily. [facility] Magnesium 2-0 Yes 400mg Take 400 [facility] Oxide 420 8-02 mg by [facility] mg Tab 00:00: mouth [place] 00 daily. [facility] Magnesium 2-0 Yes 400mg Take 400 [facility] Oxide 420 8-02 mg by [facility] mg Tab 00:00: mouth [place] 00 daily. [facility] Magnesium 2-0 Yes 400mg Take 400 [facility] Oxide 420 8-02 mg by [facility] mg Tab 00:00: mouth [place] 00 daily. [facility] spironolact 2021-0 Yes [id number] 50mg Take 2 [facility] 25 mg 7-11 tablets by [facility] tablet 00:00: mouth in [place] 00 the Medical morning. Branch spironolact 2021-0 Yes [id number] 50mg Take 2 [facility] one 25 mg 7-11 tablets by [facility] tablet 00:00: mouth in [place] 00 the Medical morning. Branch spironolact 2021-0 Yes [id number] 50mg Take 2 [facility] one 25 mg 7-11 tablets by [facility] tablet 00:00: mouth in [place] 00 the Medical morning. Branch spironolact 2021-0 Yes [id number] 50mg Take 2 [facility] one 25 mg 7-11 tablets by [facility] tablet 00:00: mouth in [place] 00 the Medical morning. Branch spironolact 2021-0 Yes [id number] 50mg Take 2 [facility] one 25 mg 7-11 tablets by [facility] tablet 00:00: mouth in [place] 00 the Medical morning. Branch spironolact 2021-0 Yes [id number] 50mg Take 2 [facility] one 25 mg 7-11 tablets by [facility] tablet 00:00: mouth in [place] 00 the Medical morning. Branch spironolact 2022-0 Yes [id number] 50mg Take 2 [facility] one 25 mg 7-11 tablets by [facility] tablet 00:00: mouth in [place] 00 the Medical morning. Branch spironolact 2022-0 Yes [id number] 50mg Take 2 [facility] one 25 mg 7-11 tablets by [facility] tablet 00:00: mouth in [place] 00 the Medical morning. Branch spironolact 2022-0 Yes [id number] 50mg Take 2 [facility] one 25 mg 7-11 tablets by [facility] tablet 00:00: mouth in [place] the Medical morning. Branch spironolact 2022-0 Yes [id number] 50mg Take 2 [facility] one 25 mg 7-11 tablets by [facility] of tablet 00:00: mouth in [place] the Medical morning. Branch spironolact 2022-0 Yes [id number] 50mg Take 2 [facility] 25 mg 7-11 tablets by [facility] tablet 00:00: mouth in [place] the Medical morning. Branch spironolact 2022-0 Yes [id number] 50mg Take 2 [facility] 25 mg 7-11 tablets by [facility] tablet 00:00: mouth in [place] the Medical morning. Branch spironolact 2022-0 Yes [id number] 50mg Take 2 [facility] 25 mg 7-11 tablets by [facility] tablet 00:00: mouth in [place] the Medical morning. Branch spironolact 2022-0 Yes [id number] 50mg Take 2 [facility] 25 mg 7-11 tablets by [facility] tablet 00:00: mouth in [place] the Medical morning. Branch spironolact 2022-0 Yes [id number] 50mg Take 2 [facility] 25 mg 7-11 tablets by [facility] tablet 00:00: mouth in [place] 00 the Medical morning. Branch spironolact 2022-0 Yes [id number] 50mg Take 2 [facility] 25 mg 7-11 tablets by [facility] tablet 00:00: mouth in [place] 00 the Medical morning. Branch spironolact 2022-0 Yes [id number] 50mg Take 2 [facility] 25 mg 7-11 tablets by [facility] tablet 00:00: mouth in [place] 00 the Medical morning. Branch spironolact 2021-0 Yes [id number] 50mg Take 2 [facility] 25 mg 7-11 tablets by [facility] tablet 00:00: mouth in [place] 00 the Medical morning. Branch spironolact 2021-0 Yes [id number] 50mg Take 2 [facility] one 25 mg 7-11 tablets by [facility] tablet 00:00: mouth in [place] 00 the Medical morning. Branch spironolact 2021-0 Yes [id number] 50mg Take 2 [facility] one 25 mg 7-11 tablets by [facility] tablet 00:00: mouth in [place] 00 the Medical morning. Branch spironolact 202- No [id number] 50mg Take 2 [facility] one 25 mg 7-11 10-13 tablets by [facility] tablet 00:00: 00:00 mouth in [place] 00 :00 the Medical morning. Branch atorvastati Yes [id number] 80mg Take 1 [facility] n 80 mg 7-06 tablet by [facility] tablet 00:00: mouth at [place] 00 bedtime. [facility] cholecalcif Yes [id number] 1000U Take 1 [facility] mika, 7-06 tablet by [facility] of vitamin D3, 00:00: mouth [place] 25 mcg 00 daily. Medical (1,000 Branch unit) tablet aspirin 81 Yes [id number] 81mg Take 1 [facility] n[facility] mg EC 7-06 tablet by [facility] tablet 00:00: mouth [place] 00 daily. [facility] atorvastati Yes [id number] 80mg Take 1 [facility] n 80 mg 7-06 tablet by [facility] tablet 00:00: mouth at [place] 00 bedtime. [facility] cholecalcif 0 Yes [id number] 1000U Take 1 [facility] mika, 7-06 tablet by [facility] of vitamin D3, 00:00: mouth [place] 25 mcg 00 daily. Medical (1,000 Branch unit) tablet aspirin 81 0 Yes [id number] 81mg Take 1 [facility] n[facility] mg EC 7-06 tablet by [facility] tablet 00:00: mouth [place] 00 daily. [facility] atorvastati Yes [id number] 80mg Take 1 [facility] n 80 mg 7-06 tablet by [facility] of tablet 00:00: mouth at [place] 00 bedtime. [facility] cholecalcif Yes [id number] 1000U Take 1 [facility] mika, 7-06 tablet by [facility] of vitamin D3, 00:00: mouth [place] 25 mcg 00 daily. Medical (1,000 Branch unit) tablet aspirin 81 0 Yes [id number] 81mg Take 1 [facility] nivers mg EC 7-06 tablet by [facility] of tablet 00:00: mouth [place] 00 daily. [facility] atorvastati Yes [id number] 80mg Take 1 [facility] n 80 mg 7-06 tablet by [facility] of tablet 00:00: mouth at [place] 00 bedtime. [facility] cholecalcif Yes [id number] 1000U Take 1 [facility] mika, 7-06 tablet by [facility] of vitamin D3, 00:00: mouth [place] 25 mcg 00 daily. Medical (1,000 Branch unit) tablet aspirin 81 Yes [id number] 81mg Take 1 [facility] nivers mg EC 7-06 tablet by [facility] of tablet 00:00: mouth [place] 00 daily. [facility] atorvastati Yes [id number] 80mg Take 1 [facility] n 80 mg 7-06 tablet by [facility] of tablet 00:00: mouth at [place] 00 bedtime. [facility] cholecalcif Yes [id number] 1000U Take 1 [facility] mika, 7-06 tablet by [facility] of vitamin D3, 00:00: mouth [place] 25 mcg 00 daily. Medical (1,000 Branch unit) tablet aspirin 81 0 Yes [id number] 81mg Take 1 [facility] nivers mg EC 7-06 tablet by [facility] of tablet 00:00: mouth [place] 00 daily. [facility] atorvastati Yes [id number] 80mg Take 1 [facility] n 80 mg 7-06 tablet by [facility] of tablet 00:00: mouth at [place] 00 bedtime. [facility] cholecalcif Yes [id number] 1000U Take 1 [facility] mika, 7-06 tablet by [facility] of vitamin D3, 00:00: mouth [place] 25 mcg 00 daily. Medical (1,000 Branch unit) tablet aspirin 81 0 Yes [id number] 81mg Take 1 [facility] nivers mg EC 7-06 tablet by [facility] of tablet 00:00: mouth [place] 00 daily. [facility] atorvastati Yes [id number] 80mg Take 1 [facility] n 80 mg 7-06 tablet by [facility] of tablet 00:00: mouth at [place] 00 bedtime. [facility] cholecalcif Yes [id number] 1000U Take 1 [facility] mika, 7-06 tablet by [facility] of vitamin D3, 00:00: mouth [place] 25 mcg 00 daily. Medical (1,000 Branch unit) tablet aspirin 81 Yes [id number] 81mg Take 1 [facility] nivers mg EC 7-06 tablet by [facility] of tablet 00:00: mouth [place] 00 daily. [facility] atorvastati Yes [id number] 80mg Take 1 [facility] n 80 mg 7-06 tablet by [facility] of tablet 00:00: mouth at [place] 00 bedtime. [facility] cholecalcif Yes [id number] 1000U Take 1 [facility] mika, 7-06 tablet by [facility] of vitamin D3, 00:00: mouth [place] 25 mcg 00 daily. Medical (1,000 Branch unit) tablet aspirin 81 Yes [id number] 81mg Take 1 [facility] nivers mg EC 7-06 tablet by [facility] of tablet 00:00: mouth [place] 00 daily. [facility] atorvastati Yes [id number] 80mg Take 1 [facility] n 80 mg 7-06 tablet by [facility] of tablet 00:00: mouth at [place] 00 bedtime. [facility] cholecalcif Yes [id number] 1000U Take 1 [facility] mika, 7-06 tablet by [facility] of vitamin D3, 00:00: mouth [place] 25 mcg 00 daily. Medical (1,000 Branch unit) tablet aspirin 81 Yes [id number] 81mg Take 1 [facility] nivers mg EC 7-06 tablet by [facility] of tablet 00:00: mouth [place] 00 daily. [facility] atorvastati Yes [id number] 80mg Take 1 [facility] n 80 mg 7-06 tablet by [facility] of tablet 00:00: mouth at [place] 00 bedtime. [facility] cholecalcif Yes [id number] 1000U Take 1 [facility] mika, 7-06 tablet by [facility] of vitamin D3, 00:00: mouth [place] 25 mcg 00 daily. Medical (1,000 Branch unit) tablet aspirin 81 Yes [id number] 81mg Take 1 [facility] nivers mg EC 7-06 tablet by [facility] of tablet 00:00: mouth [place] 00 daily. [facility] atorvastati Yes [id number] 80mg Take 1 [facility] n 80 mg 7-06 tablet by [facility] of tablet 00:00: mouth at [place] 00 bedtime. [facility] cholecalcif Yes [id number] 1000U Take 1 [facility] mika, 7-06 tablet by [facility] of vitamin D3, 00:00: mouth [place] 25 mcg 00 daily. Medical (1,000 Branch unit) tablet aspirin 81 Yes [id number] 81mg Take 1 [facility] nivers mg EC 7-06 tablet by [facility] of tablet 00:00: mouth [place] 00 daily. [facility] atorvastati Yes [id number] 80mg Take 1 [facility] n 80 mg 7-06 tablet by [facility] of tablet 00:00: mouth at [place] 00 bedtime. [facility] cholecalcif Yes [id number] 1000U Take 1 [facility] mika, 7-06 tablet by [facility] of vitamin D3, 00:00: mouth [place] 25 mcg 00 daily. Medical (1,000 Branch unit) tablet aspirin 81 0 Yes [id number] 81mg Take 1 [facility] n[facility] mg EC 7-06 tablet by [facility] of tablet 00:00: mouth [place] 00 daily. [facility] atorvastati Yes [id number] 80mg Take 1 [facility] n 80 mg 7-06 tablet by [facility] of tablet 00:00: mouth at [place] 00 bedtime. [facility] cholecalcif Yes [id number] 1000U Take 1 [facility] mika, 7-06 tablet by [facility] of vitamin D3, 00:00: mouth [place] 25 mcg 00 daily. Medical (1,000 Branch unit) tablet aspirin 81 0 Yes [id number] 81mg Take 1 [facility] n[facility] mg EC 7-06 tablet by [facility] of tablet 00:00: mouth [place] 00 daily. [facility] atorvastati Yes [id number] 80mg Take 1 [facility] n 80 mg 7-06 tablet by [facility] of tablet 00:00: mouth at [place] 00 bedtime. [facility] cholecalcif Yes [id number] 1000U Take 1 [facility] mika, 7-06 tablet by [facility] of vitamin D3, 00:00: mouth [place] 25 mcg 00 daily. Medical (1,000 Branch unit) tablet aspirin 81 0 Yes [id number] 81mg Take 1 [facility] n[facility] mg EC 7-06 tablet by [facility] of tablet 00:00: mouth [place] 00 daily. [facility] atorvastati Yes [id number] 80mg Take 1 [facility] n 80 mg 7-06 tablet by [facility] of tablet 00:00: mouth at [place] 00 bedtime. [facility] cholecalcif Yes [id number] 1000U Take 1 [facility] mika, 7-06 tablet by [facility] of vitamin D3, 00:00: mouth [place] 25 mcg 00 daily. Medical (1,000 Branch unit) tablet aspirin 81 0 Yes [id number] 81mg Take 1 [facility] n[facility] mg EC 7-06 tablet by [facility] of tablet 00:00: mouth [place] 00 daily. [facility] atorvastati Yes [id number] 80mg Take 1 [facility] n 80 mg 7-06 tablet by [facility] of tablet 00:00: mouth at [place] 00 bedtime. [facility] cholecalcif Yes [id number] 1000U Take 1 [facility] mika, 7-06 tablet by [facility] of vitamin D3, 00:00: mouth [place] 25 mcg 00 daily. Medical (1,000 Branch unit) tablet aspirin 81 Yes [id number] 81mg Take 1 [facility] n[facility] mg EC 7-06 tablet by [facility] of tablet 00:00: mouth [place] 00 daily. [facility] atorvastati Yes [id number] 80mg Take 1 [facility] n 80 mg 7-06 tablet by [facility] of tablet 00:00: mouth at [place] 00 bedtime. [facility] cholecalcif Yes [id number] 1000U Take 1 [facility] mika, 7-06 tablet by [facility] of vitamin D3, 00:00: mouth [place] 25 mcg 00 daily. Medical (1,000 Branch unit) tablet aspirin 81 0 Yes [id number] 81mg Take 1 [facility] nivers mg EC 7-06 tablet by [facility] of tablet 00:00: mouth [place] 00 daily. [facility] atorvastati Yes [id number] 80mg Take 1 [facility] n 80 mg 7-06 tablet by [facility] of tablet 00:00: mouth at [place] 00 bedtime. [facility] cholecalcif Yes [id number] 1000U Take 1 [facility] mika, 7-06 tablet by [facility] of vitamin D3, 00:00: mouth [place] 25 mcg 00 daily. Medical (1,000 Branch unit) tablet aspirin 81 Yes [id number] 81mg Take 1 [facility] n[facility] mg EC 7-06 tablet by [facility] of tablet 00:00: mouth [place] 00 daily. [facility] atorvastati Yes [id number] 80mg Take 1 [facility] n 80 mg 7-06 tablet by [facility] of tablet 00:00: mouth at [place] 00 bedtime. [facility] cholecalcif Yes [id number] 1000U Take 1 [facility] mika, 7-06 tablet by [facility] of vitamin D3, 00:00: mouth [place] 25 mcg 00 daily. Medical (1,000 Branch unit) tablet aspirin 81 Yes [id number] 81mg Take 1 [facility] n[facility] mg EC 7-06 tablet by [facility] of tablet 00:00: mouth [place] 00 daily. [facility] atorvastati Yes [id number] 80mg Take 1 [facility] n 80 mg 7-06 tablet by [facility] of tablet 00:00: mouth at [place] 00 bedtime. [facility] cholecalcif Yes [id number] 1000U Take 1 [facility] mika, 7-06 tablet by [facility] of vitamin D3, 00:00: mouth [place] 25 mcg 00 daily. Medical (1,000 Branch unit) tablet aspirin 81 0 Yes [id number] 81mg Take 1 [facility] n[facility] mg EC 7-06 tablet by [facility] of tablet 00:00: mouth [place] 00 daily. [facility] atorvastati Yes [id number] 80mg Take 1 [facility] n 80 mg 7-06 tablet by [facility] of tablet 00:00: mouth at [place] 00 bedtime. [facility] cholecalcif Yes [id number] 1000U Take 1 [facility] mika, 7-06 tablet by [facility] of vitamin D3, 00:00: mouth [place] 25 mcg 00 daily. Medical (1,000 Branch unit) tablet aspirin 81 Yes [id number] 81mg Take 1 [facility] mg EC 7-06 tablet by [facility] of tablet 00:00: mouth [place] 00 daily. [facility] atorvastati Yes [id number] 80mg Take 1 [facility] n 80 mg 7-06 tablet by [facility] of tablet 00:00: mouth at [place] 00 bedtime. [facility] cholecalcif Yes [id number] 1000U Take 1 [facility] mika, 7-06 tablet by [facility] of vitamin D3, 00:00: mouth [place] 25 mcg 00 daily. Medical (1,000 Branch unit) tablet aspirin 81 Yes [id number] 81mg Take 1 [facility] n[facility] mg EC 7-06 tablet by [facility] of tablet 00:00: mouth [place] 00 daily. [facility] atorvastati Yes [id number] 80mg Take 1 [facility] n 80 mg 7-06 tablet by [facility] of tablet 00:00: mouth at [place] 00 bedtime. [facility] cholecalcif Yes [id number] 1000U Take 1 [facility] mika, 7-06 tablet by [facility] of vitamin D3, 00:00: mouth [place] 25 mcg 00 daily. Medical (1,000 Branch unit) tablet aspirin 81 Yes [id number] 81mg Take 1 [facility] n[facility] mg EC 7-06 tablet by [facility] of tablet 00:00: mouth [place] 00 daily. [facility] atorvastati Yes [id number] 80mg Take 1 [facility] n 80 mg 7-06 tablet by [facility] of tablet 00:00: mouth at [place] 00 bedtime. [facility] cholecalcif Yes [id number] 1000U Take 1 [facility] mika, 7-06 tablet by [facility] of vitamin D3, 00:00: mouth [place] 25 mcg 00 daily. Medical (1,000 Branch unit) tablet aspirin 81 Yes [id number] 81mg Take 1 [facility] n[facility] mg EC 7-06 tablet by [facility] of tablet 00:00: mouth [place] 00 daily. [facility] atorvastati Yes [id number] 80mg Take 1 [facility] n 80 mg 7-06 tablet by [facility] of tablet 00:00: mouth at [place] 00 bedtime. [facility] cholecalcif Yes [id number] 1000U Take 1 [facility] mika, 7-06 tablet by [facility] of vitamin D3, 00:00: mouth [place] 25 mcg 00 daily. Medical (1,000 Branch unit) tablet aspirin 81 Yes [id number] 81mg Take 1 [facility] mg EC 7-06 tablet by [facility] of tablet 00:00: mouth [place] 00 daily. [facility] atorvastati Yes [id number] 80mg Take 1 [facility] n 80 mg 7-06 tablet by [facility] of tablet 00:00: mouth at [place] 00 bedtime. [facility] cholecalcif Yes [id number] 1000U Take 1 [facility] mika, 7-06 tablet by [facility] of vitamin D3, 00:00: mouth [place] 25 mcg 00 daily. Medical (1,000 Branch unit) tablet aspirin 81 0 Yes [id number] 81mg Take 1 [facility] n[facility] mg EC 7-06 tablet by [facility] of tablet 00:00: mouth [place] 00 daily. [facility] Branch atorvastati Yes [id number] 80mg Take 1 [facility] n 80 mg 7-06 tablet by [facility] of tablet 00:00: mouth at [place] 00 bedtime. [facility] cholecalcif Yes [id number] 1000U Take 1 [facility] mika, 7-06 tablet by [facility] of vitamin D3, 00:00: mouth [place] 25 mcg 00 daily. Medical (1,000 Branch unit) tablet aspirin 81 Yes [id number] 81mg Take 1 [facility] n[facility] mg EC 7-06 tablet by [facility] of tablet 00:00: mouth [place] 00 daily. [facility] atorvastati Yes [id number] 80mg Take 1 [facility] n 80 mg 7-06 tablet by [facility] of tablet 00:00: mouth at [place] 00 bedtime. [facility] cholecalcif Yes [id number] 1000U Take 1 [facility] mika, 7-06 tablet by [facility] of vitamin D3, 00:00: mouth [place] 25 mcg 00 daily. Medical (1,000 Branch unit) tablet aspirin 81 0 Yes [id number] 81mg Take 1 [facility] nivers mg EC 7-06 tablet by [facility] of tablet 00:00: mouth [place] 00 daily. [facility] atorvastati Yes [id number] 80mg Take 1 [facility] n 80 mg 7-06 tablet by [facility] of tablet 00:00: mouth at [place] 00 bedtime. [facility] cholecalcif Yes [id number] 1000U Take 1 [facility] mika, 7-06 tablet by [facility] of vitamin D3, 00:00: mouth [place] 25 mcg 00 daily. Medical (1,000 Branch unit) tablet aspirin 81 0 Yes [id number] 81mg Take 1 [facility] nivers mg EC 7-06 tablet by [facility] of tablet 00:00: mouth [place] 00 daily. [facility] Branch atorvastati Yes [id number] 80mg Take 1 [facility] n 80 mg 7-06 tablet by [facility] of tablet 00:00: mouth at [place] 00 bedtime. [facility] cholecalcif Yes [id number] 1000U Take 1 [facility] mika, 7-06 tablet by it[facility] of vitamin D3, 00:00: mouth [place] 25 mcg 00 daily. Medical (1,000 Branch unit) tablet aspirin 81 Yes [id number] 81mg Take 1 [facility] n[facility] mg EC 7-06 tablet by [facility] of tablet 00:00: mouth [place] 00 daily. [facility] atorvastati Yes [id number] 80mg Take 1 [facility] n 80 mg 7-06 tablet by [facility] of tablet 00:00: mouth at [place] 00 bedtime. [facility] cholecalcif Yes [id number] 1000U Take 1 [facility] mika, 7-06 tablet by ity of vitamin D3, 00:00: mouth [place] 25 mcg 00 daily. Medical (1,000 Branch unit) tablet aspirin 81 0 Yes [id number] 81mg Take 1 [facility] n[facility] mg EC 7-06 tablet by [facility] of tablet 00:00: mouth [place] 00 daily. [facility] Branch atorvastati Yes [id number] 80mg Take 1 [facility] n 80 mg 7-06 tablet by [facility] of tablet 00:00: mouth at [place] 00 bedtime. [facility] cholecalcif Yes [id number] 1000U Take 1 [facility] mika, 7-06 tablet by it[facility] of vitamin D3, 00:00: mouth [place] 25 mcg 00 daily. Medical (1,000 Branch unit) tablet aspirin 81 0 Yes [id number] 81mg Take 1 [facility] n[facility] mg EC 7-06 tablet by [facility] of tablet 00:00: mouth [place] 00 daily. [facility] Branch atorvastati Yes [id number] 80mg Take 1 [facility] n 80 mg 7-06 tablet by [facility] of tablet 00:00: mouth at [place] 00 bedtime. [facility] cholecalcif Yes [id number] 1000U Take 1 [facility] mika, 7-06 tablet by ity of vitamin D3, 00:00: mouth [place] 25 mcg 00 daily. Medical (1,000 Branch unit) tablet aspirin 81 Yes [id number] 81mg Take 1 [facility] n[facility] mg EC 7-06 tablet by [facility] of tablet 00:00: mouth [place] 00 daily. [facility] Branch atorvastati Yes [id number] 80mg Take 1 [facility] n 80 mg 7-06 tablet by [facility] of tablet 00:00: mouth at [place] 00 bedtime. [facility] cholecalcif Yes [id number] 1000U Take 1 [facility] mika, 7-06 tablet by ity of vitamin D3, 00:00: mouth [place] 25 mcg 00 daily. Medical (1,000 Branch unit) tablet aspirin 81 Yes [id number] 81mg Take 1 [facility] n[facility] mg EC 7-06 tablet by [facility] of tablet 00:00: mouth [place] 00 daily. [facility] Branch atorvastati Yes [id number] 80mg Take 1 [facility] n 80 mg 7-06 tablet by [facility] of tablet 00:00: mouth at [place] 00 bedtime. [facility] cholecalcif Yes [id number] 1000U Take 1 [facility] mika, 7-06 tablet by ity of vitamin D3, 00:00: mouth [place] 25 mcg 00 daily. Medical (1,000 Branch unit) tablet aspirin 81 Yes [id number] 81mg Take 1 [facility] nivers mg EC 7-06 tablet by [facility] of tablet 00:00: mouth [place] 00 daily. [facility] Branch atorvastati Yes [id number] 80mg Take 1 [facility] n 80 mg 7-06 tablet by [facility] of tablet 00:00: mouth at [place] 00 bedtime. [facility] cholecalcif Yes [id number] 1000U Take 1 [facility] mika, 7-06 tablet by ity of vitamin D3, 00:00: mouth [place] 25 mcg 00 daily. Medical (1,000 Branch unit) tablet aspirin 81 Yes [id number] 81mg Take 1 [facility] nivers mg EC 7-06 tablet by [facility] of tablet 00:00: mouth [place] 00 daily. [facility] Branch atorvastati Yes [id number] 80mg Take 1 [facility] n 80 mg 7-06 tablet by it[facility] of tablet 00:00: mouth at [place] 00 bedtime. [facility] cholecalcif Yes [id number] 1000U Take 1 [facility] mika, 7-06 tablet by ity of vitamin D3, 00:00: mouth [place] 25 mcg 00 daily. Medical (1,000 Branch unit) tablet aspirin 81 0 Yes [id number] 81mg Take 1 [facility] nivers mg EC 7-06 tablet by [facility] of tablet 00:00: mouth [place] 00 daily. [facility] atorvastati Yes [id number] 80mg Take 1 [facility] n 80 mg 7-06 tablet by [facility] of tablet 00:00: mouth at [place] 00 bedtime. [facility] cholecalcif Yes [id number] 1000U Take 1 [facility] mika, 7-06 tablet by ity of vitamin D3, 00:00: mouth [place] 25 mcg 00 daily. Medical (1,000 Branch unit) tablet aspirin 81 Yes [id number] 81mg Take 1 [facility] n[facility] mg EC 7-06 tablet by [facility] of tablet 00:00: mouth [place] 00 daily. [facility] atorvastati Yes [id number] 80mg Take 1 [facility] n 80 mg 7-06 tablet by [facility] of tablet 00:00: mouth at [place] 00 bedtime. [facility] cholecalcif Yes [id number] 1000U Take 1 [facility] mika, 7-06 tablet by ity of vitamin D3, 00:00: mouth [place] 25 mcg 00 daily. Medical (1,000 Branch unit) tablet aspirin 81 Yes [id number] 81mg Take 1 [facility] nivers mg EC 7-06 tablet by [facility] of tablet 00:00: mouth [place] 00 daily. [facility] Branch atorvastati Yes [id number] 80mg Take 1 [facility] n 80 mg 7-06 tablet by [facility] of tablet 00:00: mouth at [place] 00 bedtime. Medical Branch cholecalcif Yes [id number] 1000U Take 1 [facility] mika, 7-06 tablet by [facility] of vitamin D3, 00:00: mouth [place] 25 mcg 00 daily. Medical (1,000 Branch unit) tablet aspirin 81 Yes [id number] 81mg Take 1 [facility] nivers mg EC 7-06 tablet by it[facility] of tablet 00:00: mouth [place] 00 daily. Medical Branch atorvastati Yes [id number] 80mg Take 1 [facility] n 80 mg 7-06 tablet by [facility] of tablet 00:00: mouth at [place] 00 bedtime. Medical Branch cholecalcif 0 Yes [id number] 1000U Take 1 [facility] mika, 7-06 tablet by ity of vitamin D3, 00:00: mouth [place] 25 mcg 00 daily. Medical (1,000 Branch unit) tablet aspirin 81 0 Yes [id number] 81mg Take 1 [facility] mg EC 7-06 tablet by ity of tablet 00:00: mouth [place] 00 daily. Medical Branch atorvastati Yes [id number] 80mg Take 1 [facility] n 80 mg 7-06 tablet by [facility] of tablet 00:00: mouth at [place] 00 bedtime. Medical Branch cholecalcif Yes [id number] 1000U Take 1 [facility] mika, 7-06 tablet by [facility]y of vitamin D3, 00:00: mouth [place] 25 mcg 00 daily. Medical (1,000 Branch unit) tablet aspirin 81 0 Yes [id number] 81mg Take 1 [facility] mg EC 7-06 tablet by ity of tablet 00:00: mouth [place] 00 daily. Medical Branch atorvastati Yes [id number] 80mg Take 1 [facility] n 80 mg 7-06 tablet by [facility] of tablet 00:00: mouth at [place] 00 bedtime. Medical Branch cholecalcif Yes [id number] 1000U Take 1 [facility] mika, 7-06 tablet by [facility]y of vitamin D3, 00:00: mouth [place] 25 mcg 00 daily. Medical (1,000 Branch unit) tablet aspirin 81 0 Yes [id number] 81mg Take 1 [facility] n[facility] mg EC 7-06 tablet by ity of tablet 00:00: mouth [place] 00 daily. Medical Branch atorvastati Yes [id number] 80mg Take 1 [facility] n 80 mg 7-06 tablet by ity of tablet 00:00: mouth at [place] 00 bedtime. Medical Branch cholecalcif 0 Yes [id number] 1000U Take 1 [facility] mika, 7-06 tablet by ity of vitamin D3, 00:00: mouth [place] 25 mcg 00 daily. Medical (1,000 Branch unit) tablet aspirin 81 Yes [id number] 81mg Take 1 [facility] mg EC 7-06 tablet by [facility] of tablet 00:00: mouth [place] 00 daily. Medical Branch atorvastati Yes [id number] 80mg Take 1 [facility] n 80 mg 7-06 tablet by [facility] of tablet 00:00: mouth at [place] 00 bedtime. Medical Branch cholecalcif Yes [id number] 1000U Take 1 [facility] mika, 7-06 tablet by ity of vitamin D3, 00:00: mouth [place] 25 mcg 00 daily. Medical (1,000 Branch unit) tablet aspirin 81 Yes [id number] 81mg Take 1 [facility] mg EC 7-06 tablet by ity of tablet 00:00: mouth [place] 00 daily. Medical Branch acetaminoph Yes 2745 1{tbl} Take 1 [facility] en-codeine 6-09 tablet by [facility] 300-30 mg 00:00: mouth [place] tablet 00 needed Medical (take Branch daily as needed for severe right knee pain, s/p TKA, heart failure, unable to take NSAIDS). Indication s: chronic pain acetaminoph Yes 2745 1{tbl} Take 1 [facility] en-codeine 6-09 tablet by [facility] 300-30 mg 00:00: mouth [place] tablet 00 needed Medical (take Branch daily as needed for severe right knee pain, s/p TKA, heart failure, unable to take NSAIDS). Indication s: chronic pain acetaminoph 0 Yes 2745 1{tbl} Take 1 [facility] en-codeine 6-09 tablet by [facility] of 300-30 mg 00:00: mouth [place] tablet 00 needed Medical (take Branch daily as needed for severe right knee pain, s/p TKA, heart failure, unable to take NSAIDS). Indication s: chronic pain acetaminoph 0 Yes 2745 1{tbl} Take 1 [facility] en-codeine 6-09 tablet by [facility] of 300-30 mg 00:00: mouth [place] tablet 00 needed Medical (take Branch daily as needed for severe right knee pain, s/p TKA, heart failure, unable to take NSAIDS). Indication s: chronic pain acetaminoph 2022-0 Yes 2745 1{tbl} Take 1 [facility] d[facility] en-codeine 6-09 tablet by [facility] of 300-30 mg 00:00: mouth [place] tablet 00 needed Medical (take Branch daily as needed for severe right knee pain, s/p TKA, heart failure, unable to take NSAIDS). Indication s: chronic pain acetaminoph 2021-0 Yes 2745 1{tbl} Take 1 [facility] d[facility] en-codeine 6-09 tablet by [facility] of 300-30 mg 00:00: mouth [place] tablet 00 needed Medical (take Branch daily as needed for severe right knee pain, s/p TKA, heart failure, unable to take NSAIDS). Indication s: chronic pain acetaminoph 2021-0 Yes 2745 1{tbl} Take 1 [facility] d[facility] en-codeine 6-09 tablet by [facility] of 300-30 mg 00:00: mouth [place] tablet 00 needed Medical (take Branch daily as needed for severe right knee pain, s/p TKA, heart failure, unable to take NSAIDS). Indication s: chronic pain acetaminoph 2021-0 2021- No 2745 1{tbl} Take 1 [facility] nivers en-codeine -04-28 tablet by ity of 300-30 mg 00:00: 00:00 mouth as [place] tablet 00 :00 needed Medical (take Branch daily as needed for severe right knee pain, s/p TKA, heart failure, unable to take NSAIDS). Indication s: chronic pain acetaminoph 2021-0 2021- No 2745 1{tbl} Take 1 [facility] nivers en-codeine -04-28 tablet by ity of 300-30 mg 00:00: 00:00 mouth as [place] tablet 00 :00 needed Medical (take Branch daily as needed for severe right knee pain, s/p TKA, heart failure, unable to take NSAIDS). Indication s: chronic pain acetaminoph 2-0 Yes [id number] 650mg Take 1 [facility] en 650 mg 6-07 tablet by ity o f CR tablet 00:00: mouth [place] 00 every 8 Medical (eight) Branch hours as needed for Pain or Fever. acetaminoph 2022-0 Yes [id number] 650mg Take 1 [facility] en 650 mg 6-07 tablet by ity o f CR tablet 00:00: mouth [place] 00 every 8 Medical (eight) Branch hours as needed for Pain or Fever. acetaminoph 2022-0 Yes [id number] 650mg Take 1 [facility] 650 mg 6-07 tablet by ity o f CR tablet 00:00: mouth [place] 00 every 8 Medical (eight) Branch hours as needed for Pain or Fever. acetaminoph 2022-0 Yes [id number] 650mg Take 1 [facility] 650 mg 6-07 tablet by ity o f CR tablet 00:00: mouth [place] 00 every 8 Medical (eight) Branch hours as needed for Pain or Fever. acetaminoph 2022-0 Yes [id number] 650mg Take 1 [facility] 650 mg 6-07 tablet by ity o f CR tablet 00:00: mouth [place] 00 every 8 Medical (eight) Branch hours as needed for Pain or Fever. acetaminoph 2022-0 Yes [id number] 650mg Take 1 [facility] 650 mg 6-07 tablet by ity o f CR tablet 00:00: mouth [place] 00 every 8 Medical (eight) Branch hours as needed for Pain or Fever. acetaminoph 2022-0 Yes [id number] 650mg Take 1 [facility] 650 mg 6-07 tablet by ity o f CR tablet 00:00: mouth [place] 00 every 8 Medical (eight) Branch hours as needed for Pain or Fever. acetaminoph 2022-0 Yes [id number] 650mg Take 1 [facility] 650 mg 6-07 tablet by ity o f CR tablet 00:00: mouth [place] 00 every 8 Medical (eight) Branch hours as needed for Pain or Fever. acetaminoph 2022-0 Yes [id number] 650mg Take 1 [facility] 650 mg 6-07 tablet by ity o f CR tablet 00:00: mouth [place] 00 every 8 Medical (eight) Branch hours as needed for Pain or Fever. acetaminoph 2022-0 Yes [id number] 650mg Take 1 [facility] 650 mg 6-07 tablet by ity o f CR tablet 00:00: mouth [place] 00 every 8 Medical (eight) Branch hours as needed for Pain or Fever. acetaminoph 2022-0 Yes [id number] 650mg Take 1 [facility] 650 mg 6-07 tablet by ity o f CR tablet 00:00: mouth [place] 00 every 8 Medical (eight) Branch hours as needed for Pain or Fever. acetaminoph 2022-0 Yes [id number] 650mg Take 1 [facility] 650 mg 6-07 tablet by ity o f CR tablet 00:00: mouth [place] 00 every 8 Medical (eight) Branch hours as needed for Pain or Fever. acetaminoph 2022-0 Yes [id number] 650mg Take 1 [facility] 650 mg 6-07 tablet by ity o f CR tablet 00:00: mouth [place] 00 every 8 Medical (eight) Branch hours as needed for Pain or Fever. acetaminoph 2-0 Yes [id number] 650mg Take 1 [facility] 650 mg 6-07 tablet by ity o f CR tablet 00:00: mouth [place] 00 every 8 Medical (eight) Branch hours as needed for Pain or Fever. acetaminoph 2-0 Yes [id number] 650mg Take 1 [facility] 650 mg 6-07 tablet by ity o f CR tablet 00:00: mouth [place] 00 every 8 Medical (eight) Branch hours as needed for Pain or Fever. acetaminoph 2-0 Yes [id number] 650mg Take 1 [facility] 650 mg 6-07 tablet by ity o f CR tablet 00:00: mouth [place] 00 every 8 Medical (eight) Branch hours as needed for Pain or Fever. acetaminoph 2-0 Yes [id number] 650mg Take 1 [facility] 650 mg 6-07 tablet by ity o f CR tablet 00:00: mouth [place] 00 every 8 Medical (eight) Branch hours as needed for Pain or Fever. acetaminoph 2-0 Yes [id number] 650mg Take 1 [facility] 650 mg 6-07 tablet by ity o f CR tablet 00:00: mouth [place] 00 every 8 Medical (eight) Branch hours as needed for Pain or Fever. acetaminoph 2-0 Yes [id number] 650mg Take 1 [facility] 650 mg 6-07 tablet by ity o f CR tablet 00:00: mouth [place] 00 every 8 Medical (eight) Branch hours as needed for Pain or Fever. acetaminoph 2022-0 Yes [id number] 650mg Take 1 [facility] 650 mg 6-07 tablet by ity o f CR tablet 00:00: mouth [place] 00 every 8 Medical (eight) Branch hours as needed for Pain or Fever. acetaminoph 2022-0 Yes [id number] 650mg Take 1 [facility] 650 mg 6-07 tablet by ity o f CR tablet 00:00: mouth [place] 00 every 8 Medical (eight) Branch hours as needed for Pain or Fever. acetaminoph 2022-0 Yes [id number] 650mg Take 1 [facility] 650 mg 6-07 tablet by ity o f CR tablet 00:00: mouth [place] 00 every 8 Medical (eight) Branch hours as needed for Pain or Fever. acetaminoph 2-0 Yes [id number] 650mg Take 1 [facility] 650 mg 6-07 tablet by ity o f CR tablet 00:00: mouth [place] 00 every 8 Medical (eight) Branch hours as needed for Pain or Fever. acetaminoph 2-0 Yes [id number] 650mg Take 1 [facility] 650 mg 6-07 tablet by ity o f CR tablet 00:00: mouth [place] 00 every 8 Medical (eight) Branch hours as needed for Pain or Fever. acetaminoph 2-0 Yes [id number] 650mg Take 1 [facility] 650 mg 6-07 tablet by ity o f CR tablet 00:00: mouth [place] 00 every 8 Medical (eight) Branch hours as needed for Pain or Fever. acetaminoph 2-0 Yes [id number] 650mg Take 1 [facility] 650 mg 6-07 tablet by ity o f CR tablet 00:00: mouth [place] 00 every 8 Medical (eight) Branch hours as needed for Pain or Fever. acetaminoph 2-0 Yes [id number] 650mg Take 1 [facility] 650 mg 6-07 tablet by ity o f CR tablet 00:00: mouth [place] 00 every 8 Medical (eight) Branch hours as needed for Pain or Fever. acetaminoph 2-0 Yes [id number] 650mg Take 1 [facility] 650 mg 6-07 tablet by ity o f CR tablet 00:00: mouth [place] 00 every 8 Medical (eight) Branch hours as needed for Pain or Fever. acetaminoph 2022-0 Yes [id number] 650mg Take 1 [facility] 650 mg 6-07 tablet by ity o f CR tablet 00:00: mouth [place] 00 every 8 Medical (eight) Branch hours as needed for Pain or Fever. acetaminoph 2022-0 Yes [id number] 650mg Take 1 [facility] 650 mg 6-07 tablet by ity o f CR tablet 00:00: mouth [place] 00 every 8 Medical (eight) Branch hours as needed for Pain or Fever. acetaminoph 2022-0 Yes [id number] 650mg Take 1 [facility] 650 mg 6-07 tablet by ity o f CR tablet 00:00: mouth [place] 00 every 8 Medical (eight) Branch hours as needed for Pain or Fever. acetaminoph 2022-0 Yes [id number] 650mg Take 1 [facility] 650 mg 6-07 tablet by ity o f CR tablet 00:00: mouth [place] 00 every 8 Medical (eight) Branch hours as needed for Pain or Fever. acetaminoph 2022-0 Yes [id number] 650mg Take 1 [facility] 650 mg 6-07 tablet by ity o f CR tablet 00:00: mouth [place] 00 every 8 Medical (eight) Branch hours as needed for Pain or Fever. acetaminoph 2022-0 Yes [id number] 650mg Take 1 [facility] 650 mg 6-07 tablet by ity o f CR tablet 00:00: mouth [place] 00 every 8 Medical (eight) Branch hours as needed for Pain or Fever. acetaminoph 2022-0 Yes [id number] 650mg Take 1 [facility] 650 mg 6-07 tablet by ity o f CR tablet 00:00: mouth [place] 00 every 8 Medical (eight) Branch hours as needed for Pain or Fever. acetaminoph 2-0 Yes [id number] 650mg Take 1 [facility] 650 mg 6-07 tablet by ity o f CR tablet 00:00: mouth [place] 00 every 8 Medical (eight) Branch hours as needed for Pain or Fever. acetaminoph 2022-0 Yes [id number] 650mg Take 1 [facility] 650 mg 6-07 tablet by ity o f CR tablet 00:00: mouth [place] 00 every 8 Medical (eight) Branch hours as needed for Pain or Fever. acetaminoph 2022-0 Yes [id number] 650mg Take 1 [facility] 650 mg 6-07 tablet by ity o f CR tablet 00:00: mouth [place] 00 every 8 Medical (eight) Branch hours as needed for Pain or Fever. acetaminoph 2022-0 Yes [id number] 650mg Take 1 [facility] 650 mg 6-07 tablet by ity o f CR tablet 00:00: mouth [place] 00 every 8 Medical (eight) Branch hours as needed for Pain or Fever. acetaminoph 2022-0 Yes [id number] 650mg Take 1 [facility] 650 mg 6-07 tablet by ity o f CR tablet 00:00: mouth [place] 00 every 8 Medical (eight) Branch hours as needed for Pain or Fever. acetaminoph 2021-0 Yes [id number] 650mg Take 1 [facility] 650 mg 6-07 tablet by ity o f CR tablet 00:00: mouth [place] 00 every 8 Medical (eight) Branch hours as needed for Pain or Fever. acetaminoph 2021-0 Yes [id number] 650mg Take 1 [facility] 650 mg 6-07 tablet by ity o f CR tablet 00:00: mouth [place] 00 every 8 Medical (eight) Branch hours as needed for Pain or Fever. acetaminoph 2021-0 Yes [id number] 650mg Take 1 [facility] 650 mg 6-07 tablet by ity o f CR tablet 00:00: mouth [place] 00 every 8 Medical (eight) Branch hours as needed for Pain or Fever. acetaminoph 2021-0 Yes [id number] 650mg Take 1 [facility] 650 mg 6-07 tablet by ity o f CR tablet 00:00: mouth [place] 00 every 8 Medical (eight) Branch hours as needed for Pain or Fever. acetaminoph 2021-0 Yes [id number] 650mg Take 1 [facility] 650 mg 6-07 tablet by ity o f CR tablet 00:00: mouth [place] 00 every 8 Medical (eight) Branch hours as needed for Pain or Fever. Lancets Yes [id number] Check Unive rs Misc 6-02 sugars 2 ity of 00:00: times a day. Dx Medical Code Branch E11.9. Brand per insurance. Lancets 0 Yes [id number] Check Unive rs Misc 6-02 sugars 2 ity of 00:00: times a day. Dx Medical Code Branch E11.9. Brand per insurance. Lancets 0 Yes [id number] Check Unive rs Misc 6-02 sugars 2 ity of 00:00: times a day. Dx Medical Code Branch E11.9. Brand per insurance. Lancets 0 Yes [id number] Check Unive rs Misc 6-02 sugars 2 ity of 00:00: times a day. Dx Medical Code Branch E11.9. Brand per insurance. Lancets 0 Yes [id number] Check Unive rs Misc 6-02 sugars 2 ity of 00:00: times a [place] 00 day. Dx Medical Code Branch E11.9. Brand per insurance. Lancets Yes [id number] Check Unive rs Misc 6-02 sugars 2 ity of 00:00: times a [place] 00 day. Dx Medical Code Branch E11.9. Brand per insurance. Lancets Yes [id number] Check Unive rs Misc 6-02 sugars 2 ity of 00:00: times a [place] 00 day. Dx Medical Code Branch E11.9. Brand per insurance. Lancets Yes [id number] Check Unive rs Misc 6-02 sugars 2 ity of 00:00: times a [place] 00 day. Dx Medical Code Branch E11.9. Brand per insurance. Lancets Yes [id number] Check Unive rs Misc 6-02 sugars 2 ity of 00:00: times a [place] 00 day. Dx Medical Code Branch E11.9. Brand per insurance. Lancets Yes [id number] Check Unive rs Misc 6-02 sugars 2 ity of 00:00: times a [place] 00 day. Dx Medical Code Branch E11.9. Brand per insurance. Lancets Yes [id number] Check Unive rs Misc 6-02 sugars 2 ity of 00:00: times a [place] 00 day. Dx Medical Code Branch E11.9. Brand per insurance. Lancets Yes [id number] Check Unive rs Misc 6-02 sugars 2 ity of 00:00: times a [place] 00 day. Dx Medical Code Branch E11.9. Brand per insurance. Lancets 2021- No [id number] Check Univ ers Misc 6-02 10-03 sugars 2 ity of 00:00: 00:00 times a [place] 00 :00 day. Dx Medical Code Branch E11.9. Brand per insurance. blood sugar 2021- No [id number] Check [facility] diagnostic 6-02 08-24 sugars 2 ity of strip 00:00: 00:00 times a [place] 00 :00 day. Dx Medical Code Branch E11.9. Brand per insurance. Diclofenac Yes [id number] Apply to [facility] Sodium 5-25 area(s) 4 ity of (VOLTAREN) 00:00: (four) [place] 1 % gel 00 times Medical daily. Branch Apply 4 g qid gabapentin 2022-0 Yes [id number] 100mg Take 1 [facility] 100 mg 5-25 capsule by ity of capsule 00:00: mouth 3 [place] 00 (three) Medical times Branch daily. Diclofenac 2022-0 Yes [id number] Apply to [facility] Sodium 5-25 area(s) 4 ity of (VOLTAREN) 00:00: (four) [place] 1 % gel 00 times Medical daily. Branch Apply 4 g qid gabapentin 2022-0 Yes [id number] 100mg Take 1 [facility] 100 mg 5-25 capsule by ity of capsule 00:00: mouth 3 [place] 00 (three) Medical times Branch daily. Diclofenac 2022-0 Yes [id number] Apply to [facility] Sodium 5-25 area(s) 4 ity of (VOLTAREN) 00:00: (four) [place] 1 % gel 00 times Medical daily. Branch Apply 4 g qid gabapentin 2022-0 Yes [id number] 100mg Take 1 [facility] 100 mg 5-25 capsule by ity of capsule 00:00: mouth 3 [place] 00 (three) Medical times Branch daily. Diclofenac 2022-0 Yes [id number] Apply to [facility] Sodium 5-25 area(s) 4 ity of (VOLTAREN) 00:00: (four) [place] 1 % gel 00 times Medical daily. Branch Apply 4 g qid gabapentin 2022-0 Yes [id number] 100mg Take 1 [facility] 100 mg 5-25 capsule by ity of capsule 00:00: mouth 3 [place] 00 (three) Medical times Branch daily. Diclofenac 2022-0 Yes [id number] Apply to [facility] Sodium 5-25 area(s) 4 ity of (VOLTAREN) 00:00: (four) [place] 1 % gel 00 times Medical daily. Branch Apply 4 g qid gabapentin 2022-0 Yes [id number] 100mg Take 1 [facility] 100 mg 5-25 capsule by ity of capsule 00:00: mouth 3 [place] 00 (three) Medical times Branch daily. Diclofenac 2022-0 Yes [id number] Apply to [facility] Sodium 5-25 area(s) 4 ity of (VOLTAREN) 00:00: (four) [place] 1 % gel 00 times Medical daily. Branch Apply 4 g qid gabapentin 2022-0 Yes [id number] 100mg Take 1 [facility] 100 mg 5-25 capsule by ity of capsule 00:00: mouth 3 [place] 00 (three) Medical times Branch daily. Diclofenac 2022-0 Yes [id number] Apply to [facility] Sodium 5-25 area(s) 4 ity of (VOLTAREN) 00:00: (four) [place] 1 % gel 00 times Medical daily. Branch Apply 4 g qid gabapentin 2022-0 Yes [id number] 100mg Take 1 [facility] 100 mg 5-25 capsule by ity of capsule 00:00: mouth 3 [place] 00 (three) Medical times Branch daily. Diclofenac 2022-0 Yes [id number] Apply to [facility] Sodium 5-25 area(s) 4 ity of (VOLTAREN) 00:00: (four) [place] 1 % gel 00 times Medical daily. Branch Apply 4 g qid gabapentin 2022-0 Yes [id number] 100mg Take 1 [facility] 100 mg 5-25 capsule by ity of capsule 00:00: mouth 3 [place] 00 (three) Medical times Branch daily. Diclofenac 2022-0 Yes [id number] Apply to [facility] Sodium 5-25 area(s) 4 ity of (VOLTAREN) 00:00: (four) [place] 1 % gel 00 times Medical daily. Branch Apply 4 g qid gabapentin 2022-0 Yes [id number] 100mg Take 1 [facility] 100 mg 5-25 capsule by ity of capsule 00:00: mouth 3 [place] 00 (three) Medical times Branch daily. Diclofenac 2022-0 Yes [id number] Apply to [facility] Sodium 5-25 area(s) 4 ity of (VOLTAREN) 00:00: (four) [place] 1 % gel 00 times Medical daily. Branch Apply 4 g qid gabapentin 2022-0 Yes [id number] 100mg Take 1 [facility] 100 mg 5-25 capsule by ity of capsule 00:00: mouth 3 [place] 00 (three) Medical times Branch daily. Diclofenac 2022-0 Yes [id number] Apply to [facility] Sodium 5-25 area(s) 4 ity of (VOLTAREN) 00:00: (four) [place] 1 % gel 00 times Medical daily. Branch Apply 4 g qid gabapentin 2022-0 Yes [id number] 100mg Take 1 [facility] 100 mg 5-25 capsule by ity of capsule 00:00: mouth 3 [place] 00 (three) Medical times Branch daily. Diclofenac 2022-0 Yes [id number] Apply to [facility] Sodium 5-25 area(s) 4 ity of (VOLTAREN) 00:00: (four) [place] 1 % gel 00 times Medical daily. Branch Apply 4 g qid gabapentin 2022-0 Yes [id number] 100mg Take 1 [facility] 100 mg 5-25 capsule by ity of capsule 00:00: mouth 3 [place] 00 (three) Medical times Branch daily. Diclofenac 2022-0 Yes [id number] Apply to [facility] Sodium 5-25 area(s) 4 ity of (VOLTAREN) 00:00: (four) [place] 1 % gel 00 times Medical daily. Branch Apply 4 g qid gabapentin 2022-0 Yes [id number] 100mg Take 1 [facility] 100 mg 5-25 capsule by ity of capsule 00:00: mouth 3 [place] 00 (three) Medical times Branch daily. Diclofenac 2022-0 Yes [id number] Apply to [facility] Sodium 5-25 area(s) 4 ity of (VOLTAREN) 00:00: (four) [place] 1 % gel 00 times Medical daily. Branch Apply 4 g qid gabapentin 2022-0 Yes [id number] 100mg Take 1 [facility] 100 mg 5-25 capsule by ity of capsule 00:00: mouth 3 [place] 00 (three) Medical times Branch daily. Diclofenac 2022-0 Yes [id number] Apply to [facility] Sodium 5-25 area(s) 4 ity of (VOLTAREN) 00:00: (four) [place] 1 % gel 00 times Medical daily. Branch Apply 4 g qid gabapentin 2022-0 Yes [id number] 100mg Take 1 [facility] 100 mg 5-25 capsule by ity of capsule 00:00: mouth 3 [place] 00 (three) Medical times Branch daily. Diclofenac 2022-0 Yes [id number] Apply to [facility] Sodium 5-25 area(s) 4 ity of (VOLTAREN) 00:00: (four) [place] 1 % gel 00 times Medical daily. Branch Apply 4 g qid gabapentin 2022-0 Yes [id number] 100mg Take 1 [facility] 100 mg 5-25 capsule by ity of capsule 00:00: mouth 3 [place] 00 (three) Medical times Branch daily. Diclofenac 2022-0 Yes [id number] Apply to [facility] Sodium 5-25 area(s) 4 ity of (VOLTAREN) 00:00: (four) [place] 1 % gel 00 times Medical daily. Branch Apply 4 g qid gabapentin 2022-0 Yes [id number] 100mg Take 1 [facility] 100 mg 5-25 capsule by ity of capsule 00:00: mouth 3 [place] 00 (three) Medical times Branch daily. Diclofenac 2022-0 Yes [id number] Apply to [facility] Sodium 5-25 area(s) 4 ity of (VOLTAREN) 00:00: (four) [place] 1 % gel 00 times Medical daily. Branch Apply 4 g qid gabapentin 2022-0 Yes [id number] 100mg Take 1 [facility] 100 mg 5-25 capsule by ity of capsule 00:00: mouth 3 [place] 00 (three) Medical times Branch daily. Diclofenac 2022-0 Yes [id number] Apply to [facility] Sodium 5-25 area(s) 4 ity of (VOLTAREN) 00:00: (four) [place] 1 % gel 00 times Medical daily. Branch Apply 4 g qid gabapentin 2022-0 Yes [id number] 100mg Take 1 [facility] 100 mg 5-25 capsule by ity of capsule 00:00: mouth 3 [place] 00 (three) Medical times Branch daily. Diclofenac 2022-0 Yes [id number] Apply to [facility] Sodium 5-25 area(s) 4 ity of (VOLTAREN) 00:00: (four) [place] 1 % gel 00 times Medical daily. Branch Apply 4 g qid gabapentin 2022-0 Yes [id number] 100mg Take 1 [facility] 100 mg 5-25 capsule by ity of capsule 00:00: mouth 3 [place] 00 (three) Medical times Branch daily. Diclofenac 2022-0 Yes [id number] Apply to [facility] Sodium 5-25 area(s) 4 ity of (VOLTAREN) 00:00: (four) [place] 1 % gel 00 times Medical daily. Branch Apply 4 g qid gabapentin 2022-0 Yes [id number] 100mg Take 1 [facility] 100 mg 5-25 capsule by ity of capsule 00:00: mouth 3 [place] 00 (three) Medical times Branch daily. Diclofenac 2022-0 Yes [id number] Apply to [facility] Sodium 5-25 area(s) 4 ity of (VOLTAREN) 00:00: (four) [place] 1 % gel 00 times Medical daily. Branch Apply 4 g qid gabapentin 2022-0 Yes [id number] 100mg Take 1 [facility] 100 mg 5-25 capsule by ity of capsule 00:00: mouth 3 [place] 00 (three) Medical times Branch daily. Diclofenac 2022-0 Yes [id number] Apply to [facility] Sodium 5-25 area(s) 4 ity of (VOLTAREN) 00:00: (four) [place] 1 % gel 00 times Medical daily. Branch Apply 4 g qid gabapentin 2022-0 Yes [id number] 100mg Take 1 [facility] 100 mg 5-25 capsule by ity of capsule 00:00: mouth 3 [place] 00 (three) Medical times Branch daily. Diclofenac 2022-0 Yes [id number] Apply to [facility] Sodium 5-25 area(s) 4 ity of (VOLTAREN) 00:00: (four) [place] 1 % gel 00 times Medical daily. Branch Apply 4 g qid gabapentin 2022-0 Yes [id number] 100mg Take 1 [facility] 100 mg 5-25 capsule by ity of capsule 00:00: mouth 3 [place] 00 (three) Medical times Branch daily. Diclofenac 2022-0 Yes [id number] Apply to [facility] Sodium 5-25 area(s) 4 ity of (VOLTAREN) 00:00: (four) [place] 1 % gel 00 times Medical daily. Branch Apply 4 g qid gabapentin 2022-0 Yes [id number] 100mg Take 1 [facility] 100 mg 5-25 capsule by ity of capsule 00:00: mouth 3 [place] 00 (three) Medical times Branch daily. Diclofenac 2022-0 Yes [id number] Apply to [facility] Sodium 5-25 area(s) 4 ity of (VOLTAREN) 00:00: (four) [place] 1 % gel 00 times Medical daily. Branch Apply 4 g qid gabapentin 2022-0 Yes [id number] 100mg Take 1 [facility] 100 mg 5-25 capsule by ity of capsule 00:00: mouth 3 [place] 00 (three) Medical times Branch daily. Diclofenac 2022-0 Yes [id number] Apply to [facility] Sodium 5-25 area(s) 4 ity of (VOLTAREN) 00:00: (four) [place] 1 % gel 00 times Medical daily. Branch Apply 4 g qid gabapentin 2022-0 Yes [id number] 100mg Take 1 [facility] 100 mg 5-25 capsule by ity of capsule 00:00: mouth 3 [place] 00 (three) Medical times Branch daily. Diclofenac 2022-0 Yes [id number] Apply to [facility] Sodium 5-25 area(s) 4 ity of (VOLTAREN) 00:00: (four) [place] 1 % gel 00 times Medical daily. Branch Apply 4 g qid gabapentin 2022-0 Yes [id number] 100mg Take 1 [facility] 100 mg 5-25 capsule by ity of capsule 00:00: mouth 3 [place] 00 (three) Medical times Branch daily. Diclofenac 2022-0 Yes [id number] Apply to [facility] Sodium 5-25 area(s) 4 ity of (VOLTAREN) 00:00: (four) [place] 1 % gel 00 times Medical daily. Branch Apply 4 g qid gabapentin 2022-0 Yes [id number] 100mg Take 1 [facility] 100 mg 5-25 capsule by ity of capsule 00:00: mouth 3 [place] 00 (three) Medical times Branch daily. Diclofenac 2022-0 Yes [id number] Apply to [facility] Sodium 5-25 area(s) 4 ity of (VOLTAREN) 00:00: (four) [place] 1 % gel 00 times Medical daily. Branch Apply 4 g qid gabapentin 2022-0 Yes [id number] 100mg Take 1 [facility] 100 mg 5-25 capsule by ity of capsule 00:00: mouth 3 [place] 00 (three) Medical times Branch daily. Diclofenac 2022-0 Yes [id number] Apply to [facility] Sodium 5-25 area(s) 4 ity of (VOLTAREN) 00:00: (four) [place] 1 % gel 00 times Medical daily. Branch Apply 4 g qid gabapentin 2022-0 Yes [id number] 100mg Take 1 [facility] 100 mg 5-25 capsule by ity of capsule 00:00: mouth 3 [place] 00 (three) Medical times Branch daily. Diclofenac 2022-0 Yes [id number] Apply to [facility] Sodium 5-25 area(s) 4 ity of (VOLTAREN) 00:00: (four) [place] 1 % gel 00 times Medical daily. Branch Apply 4 g qid gabapentin 2022-0 Yes [id number] 100mg Take 1 [facility] 100 mg 5-25 capsule by ity of capsule 00:00: mouth 3 [place] 00 (three) Medical times Branch daily. Diclofenac 2022-0 Yes [id number] Apply to [facility] Sodium 5-25 area(s) 4 ity of (VOLTAREN) 00:00: (four) [place] 1 % gel 00 times Medical daily. Branch Apply 4 g qid gabapentin 2022-0 Yes [id number] 100mg Take 1 [facility] 100 mg 5-25 capsule by [facility] of capsule 00:00: mouth 3 [place] 00 (three) Medical times Branch daily. Diclofenac 2022-0 Yes [id number] Apply to [facility] Sodium 5-25 area(s) 4 ity of (VOLTAREN) 00:00: (four) [place] 1 % gel 00 times Medical daily. Branch Apply 4 g qid gabapentin 2022-0 Yes [id number] 100mg Take 1 [facility] 100 mg 5-25 capsule by [facility] of capsule 00:00: mouth 3 [place] 00 (three) Medical times Branch daily. Diclofenac 2022-0 Yes [id number] Apply to [facility] Sodium 5-25 area(s) 4 ity of (VOLTAREN) 00:00: (four) [place] 1 % gel 00 times Medical daily. Branch Apply 4 g qid gabapentin 2022-0 Yes [id number] 100mg Take 1 [facility] 100 mg 5-25 capsule by [facility] of capsule 00:00: mouth 3 [place] 00 (three) Medical times Branch daily. Diclofenac 2022-0 Yes [id number] Apply to [facility] Sodium 5-25 area(s) 4 ity of (VOLTAREN) 00:00: (four) [place] 1 % gel 00 times Medical daily. Branch Apply 4 g qid gabapentin 2022-0 Yes [id number] 100mg Take 1 [facility] 100 mg 5-25 capsule by [facility] of capsule 00:00: mouth 3 [place] 00 (three) Medical times Branch daily. Diclofenac 2022-0 Yes [id number] Apply to [facility] Sodium 5-25 area(s) 4 ity of (VOLTAREN) 00:00: (four) [place] 1 % gel 00 times Medical daily. Branch Apply 4 g qid gabapentin 2022-0 Yes [id number] 100mg Take 1 [facility] 100 mg 5-25 capsule by [facility] of capsule 00:00: mouth 3 [place] 00 (three) Medical times Branch daily. Diclofenac 2022-0 Yes [id number] Apply to [facility] Sodium 5-25 area(s) 4 ity of (VOLTAREN) 00:00: (four) [place] 1 % gel 00 times Medical daily. Branch Apply 4 g qid gabapentin 2022-0 Yes [id number] 100mg Take 1 [facility] 100 mg 5-25 capsule by [facility] of capsule 00:00: mouth 3 [place] 00 (three) Medical times Branch daily. Diclofenac 2022-0 Yes [id number] Apply to [facility] Sodium 5-25 area(s) 4 ity of (VOLTAREN) 00:00: (four) [place] 1 % gel 00 times Medical daily. Branch Apply 4 g qid gabapentin 2022-0 Yes [id number] 100mg Take 1 [facility] 100 mg 5-25 capsule by [facility] of capsule 00:00: mouth 3 [place] 00 (three) Medical times Branch daily. Diclofenac 2022-0 Yes [id number] Apply to [facility] Sodium 5-25 area(s) 4 ity of (VOLTAREN) 00:00: (four) [place] 1 % gel 00 times Medical daily. Branch Apply 4 g qid gabapentin 2022-0 Yes [id number] 100mg Take 1 [facility] 100 mg 5-25 capsule by [facility] of capsule 00:00: mouth 3 [place] 00 (three) Medical times Branch daily. Diclofenac 2022-0 Yes [id number] Apply to [facility] Sodium 5-25 area(s) 4 ity of (VOLTAREN) 00:00: (four) [place] 1 % gel 00 times Medical daily. Branch Apply 4 g qid gabapentin 2022-0 Yes [id number] 100mg Take 1 [facility] 100 mg 5-25 capsule by [facility] of capsule 00:00: mouth 3 [place] 00 (three) Medical times Branch daily. Diclofenac 2022-0 Yes [id number] Apply to [facility] Sodium 5-25 area(s) 4 ity of (VOLTAREN) 00:00: (four) [place] 1 % gel 00 times Medical daily. Branch Apply 4 g qid gabapentin 2022-0 Yes [id number] 100mg Take 1 [facility] 100 mg 5-25 capsule by [facility] of capsule 00:00: mouth 3 [place] 00 (three) Medical times Branch daily. Diclofenac 2022-0 Yes [id number] Apply to [facility] Sodium 5-25 area(s) 4 ity of (VOLTAREN) 00:00: (four) [place] 1 % gel 00 times Medical daily. Branch Apply 4 g qid gabapentin 2022-0 Yes [id number] 100mg Take 1 [facility] 100 mg 5-25 capsule by [facility] of capsule 00:00: mouth 3 [place] 00 (three) Medical times Branch daily. Diclofenac 2-0 Yes [id number] Apply to [facility] Sodium 5-25 area(s) 4 ity of (VOLTAREN) 00:00: (four) [place] 1 % gel 00 times Medical daily. Branch Apply 4 g qid gabapentin 2021-0 Yes [id number] 100mg Take 1 [facility] 100 mg 5-25 capsule by [facility] of capsule 00:00: mouth 3 [place] 00 (three) Medical times Branch daily. Diclofenac 2-0 Yes [id number] Apply to [facility] Sodium 5-25 area(s) 4 ity of (VOLTAREN) 00:00: (four) [place] 1 % gel 00 times Medical daily. Branch Apply 4 g qid gabapentin 2021-0 Yes [id number] 100mg Take 1 [facility] 100 mg 5-25 capsule by [facility] of capsule 00:00: mouth 3 [place] 00 (three) Medical times Branch daily. omeprazole 2021-0 Yes [id number] 40mg Take 1 [facility] 40 mg 5-19 capsule by [facility] of capsule 00:00: mouth [place] 00 daily. Medical Branch omeprazole 2021-0 Yes [id number] 40mg Take 1 [facility] 40 mg 5-19 capsule by [facility] of capsule 00:00: mouth [place] 00 daily. Medical Branch omeprazole 2-0 Yes [id number] 40mg Take 1 [facility] 40 mg 5-19 capsule by [facility] of capsule 00:00: mouth [place] 00 daily. Medical Branch omeprazole 2-0 Yes [id number] 40mg Take 1 [facility] 40 mg 5-19 capsule by [facility] of capsule 00:00: mouth [place] 00 daily. Medical Branch omeprazole 2-0 Yes [id number] 40mg Take 1 [facility] 40 mg 5-19 capsule by [facility] of capsule 00:00: mouth [place] 00 daily. Medical Branch omeprazole 2022-0 Yes [id number] 40mg Take 1 [facility] 40 mg 5-19 capsule by [facility] of capsule 00:00: mouth [place] 00 daily. Medical Branch omeprazole 2-0 Yes [id number] 40mg Take 1 [facility] 40 mg 5-19 capsule by ity of capsule 00:00: mouth [place] 00 daily. Medical Branch omeprazole 2-0 Yes [id number] 40mg Take 1 [facility] 40 mg 5-19 capsule by ity of capsule 00:00: mouth [place] 00 daily. Medical Branch omeprazole 2022-0 Yes [id number] 40mg Take 1 [facility] 40 mg 5-19 capsule by ity of capsule 00:00: mouth [place] 00 daily. Medical Branch omeprazole 2-0 Yes [id number] 40mg Take 1 [facility] 40 mg 5-19 capsule by [facility]y of capsule 00:00: mouth [place] 00 daily. Medical Branch omeprazole 2-0 Yes [id number] 40mg Take 1 [facility] 40 mg 5-19 capsule by ity of capsule 00:00: mouth [place] 00 daily. Medical Branch omeprazole 2-0 Yes [id number] 40mg Take 1 [facility] 40 mg 5-19 capsule by [facility] of capsule 00:00: mouth [place] 00 daily. Medical Branch omeprazole 2-0 Yes [id number] 40mg Take 1 [facility] 40 mg 5-19 capsule by [facility]y of capsule 00:00: mouth [place] 00 daily. Medical Branch omeprazole 2-0 Yes [id number] 40mg Take 1 [facility] 40 mg 5-19 capsule by [facility]y of capsule 00:00: mouth [place] 00 daily. Medical Branch omeprazole 2-0 Yes [id number] 40mg Take 1 [facility] 40 mg 5-19 capsule by ity of capsule 00:00: mouth [place] 00 daily. Medical Branch omeprazole 2-0 Yes [id number] 40mg Take 1 [facility] 40 mg 5-19 capsule by ity of capsule 00:00: mouth [place] 00 daily. Medical Branch omeprazole 2-0 Yes [id number] 40mg Take 1 [facility] 40 mg 5-19 capsule by ity of capsule 00:00: mouth [place] 00 daily. Medical Branch omeprazole 2-0 Yes [id number] 40mg Take 1 [facility] 40 mg 5-19 capsule by [facility]y of capsule 00:00: mouth [place] 00 daily. Medical Branch omeprazole 2-0 Yes [id number] 40mg Take 1 [facility] 40 mg 5-19 capsule by [facility]y of capsule 00:00: mouth [place] 00 daily. Medical Branch omeprazole 2022-0 Yes [id number] 40mg Take 1 [facility] 40 mg 5-19 capsule by [facility]y of capsule 00:00: mouth [place] 00 daily. Medical Branch omeprazole 2-0 Yes [id number] 40mg Take 1 [facility] 40 mg 5-19 capsule by ity of capsule 00:00: mouth [place] 00 daily. Medical Branch omeprazole 2-0 Yes [id number] 40mg Take 1 [facility] 40 mg 5-19 capsule by ity of capsule 00:00: mouth [place] 00 daily. Medical Branch omeprazole 2-0 Yes [id number] 40mg Take 1 [facility] 40 mg 5-19 capsule by [facility]y of capsule 00:00: mouth [place] 00 daily. Medical Branch omeprazole 2-0 Yes [id number] 40mg Take 1 [facility] 40 mg 5-19 capsule by [facility]y of capsule 00:00: mouth [place] 00 daily. Medical Branch omeprazole 2-0 Yes [id number] 40mg Take 1 [facility] 40 mg 5-19 capsule by [facility]y of capsule 00:00: mouth [place] 00 daily. Medical Branch omeprazole 2-0 Yes [id number] 40mg Take 1 [facility] 40 mg 5-19 capsule by [facility]y of capsule 00:00: mouth [place] 00 daily. Medical Branch omeprazole 2-0 Yes [id number] 40mg Take 1 [facility] 40 mg 5-19 capsule by [facility]y of capsule 00:00: mouth [place] 00 daily. Medical Branch omeprazole 2-0 Yes [id number] 40mg Take 1 [facility] 40 mg 5-19 capsule by [facility]y of capsule 00:00: mouth [place] 00 daily. Medical Branch omeprazole 2-0 Yes [id number] 40mg Take 1 [facility] 40 mg 5-19 capsule by [facility]y of capsule 00:00: mouth [place] 00 daily. Medical Branch omeprazole 2-0 Yes [id number] 40mg Take 1 [facility] 40 mg 5-19 capsule by [facility]y of capsule 00:00: mouth [place] 00 daily. Medical Branch omeprazole 2-0 Yes [id number] 40mg Take 1 [facility] 40 mg 5-19 capsule by [facility] of capsule 00:00: mouth [place] 00 daily. Medical Branch omeprazole 2-0 Yes [id number] 40mg Take 1 [facility] 40 mg 5-19 capsule by [facility]y of capsule 00:00: mouth [place] 00 daily. Medical Branch omeprazole 2-0 Yes [id number] 40mg Take 1 [facility] 40 mg 5-19 capsule by [facility]y of capsule 00:00: mouth [place] 00 daily. Medical Branch omeprazole 2-0 Yes [id number] 40mg Take 1 [facility] 40 mg 5-19 capsule by ity of capsule 00:00: mouth [place] 00 daily. Medical Branch omeprazole 2021-0 Yes [id number] 40mg Take 1 [facility] 40 mg 5-19 capsule by ity of capsule 00:00: mouth [place] 00 daily. Medical Branch omeprazole 2021-0 Yes [id number] 40mg Take 1 [facility] 40 mg 5-19 capsule by [facility]y of capsule 00:00: mouth [place] 00 daily. Medical Branch omeprazole 2021-0 Yes [id number] 40mg Take 1 [facility] 40 mg 5-19 capsule by ity of capsule 00:00: mouth [place] 00 daily. Medical Branch omeprazole 2021-0 Yes [id number] 40mg Take 1 [facility] 40 mg 5-19 capsule by ity of capsule 00:00: mouth [place] 00 daily. Medical Branch omeprazole 2021-0 Yes [id number] 40mg Take 1 [facility] 40 mg 5-19 capsule by [facility]y of capsule 00:00: mouth [place] 00 daily. Medical Branch omeprazole 2021-0 Yes [id number] 40mg Take 1 [facility] 40 mg 5-19 capsule by [facility]y of capsule 00:00: mouth [place] 00 daily. Medical Branch omeprazole 2021-0 Yes [id number] 40mg Take 1 [facility] 40 mg 5-19 capsule by ity of capsule 00:00: mouth [place] 00 daily. Medical Branch omeprazole 2021-0 Yes [id number] 40mg Take 1 [facility] 40 mg 5-19 capsule by [facility]y of capsule 00:00: mouth [place] 00 daily. Medical Branch omeprazole 2021-0 Yes [id number] 40mg Take 1 [facility] 40 mg 5-19 capsule by ity of capsule 00:00: mouth [place] 00 daily. Medical Branch omeprazole 2021-0 Yes [id number] 40mg Take 1 [facility] 40 mg 5-19 capsule by ity of capsule 00:00: mouth [place] 00 daily. Medical Branch omeprazole 2021-0 Yes [id number] 40mg Take 1 [facility] 40 mg 5-19 capsule by ity of capsule 00:00: mouth [place] 00 daily. Medical Branch apixaban 5 2021-0 Yes 1358 5mg Take 1 [facility] rs mg tablet 4-03 tablet by ity o f 00:00: mouth 2 [place] 00 (two) Medical times Branch daily. Indication s: atrial fibrillati on apixaban 5 2021-0 Yes 1358 5mg Take 1 [facility] rs mg tablet 4-03 tablet by ity o f 00:00: mouth 2 (two) Medical times Branch daily. Indication s: atrial fibrillati on apixaban 5 2021-0 Yes 1358 5mg Take 1 [facility] rs mg tablet 4-03 tablet by ity o f 00:00: mouth 2 00 (two) Medical times Branch daily. Indication s: atrial fibrillati on apixaban 5 2021-0 Yes 1358 5mg Take 1 [facility] rs mg tablet 4-03 tablet by ity o f 00:00: mouth 2 00 (two) Medical times Branch daily. Indication s: atrial fibrillati on apixaban 5 2021-0 Yes 1358 5mg Take 1 [facility] rs mg tablet 4-03 tablet by ity o f 00:00: mouth 2 (two) Medical times Branch daily. Indication s: atrial fibrillati on apixaban 5 2021-0 Yes 1358 5mg Take 1 [facility] rs mg tablet 4-03 tablet by ity o f 00:00: mouth (two) Medical times Branch daily. Indication s: atrial fibrillati on apixaban 5 2021-0 Yes 1358 5mg Take 1 [facility] rs mg tablet 4-03 tablet by ity o f 00:00: mouth 2 (two) Medical times Branch daily. Indication s: atrial fibrillati on apixaban 5 2021-0 Yes 1358 5mg Take 1 [facility] rs mg tablet 4-03 tablet by ity o f 00:00: mouth 2 (two) Medical times Branch daily. Indication s: atrial fibrillati on apixaban 5 2021-0 Yes 1358 5mg Take 1 [facility] rs mg tablet 4-03 tablet by ity o f 00:00: mouth 2 00 (two) Medical times Branch daily. Indication s: atrial fibrillati on apixaban 5 2021-0 Yes 1358 5mg Take 1 [facility] rs mg tablet 4-03 tablet by ity o f 00:00: mouth 2 00 (two) Medical times Branch daily. Indication s: atrial fibrillati on apixaban 5 2021-0 Yes 1358 5mg Take 1 [facility] rs mg tablet 4-03 tablet by ity o f 00:00: mouth 2 00 (two) Medical times Branch daily. Indication s: atrial fibrillati on apixaban 5 2021-0 Yes 1358 5mg Take 1 [facility] rs mg tablet 4-03 tablet by ity o f 00:00: mouth 2 00 (two) Medical times Branch daily. Indication s: atrial fibrillati on apixaban 5 2021-0 Yes 1358 5mg Take 1 [facility] rs mg tablet 4-03 tablet by ity o f 00:00: mouth 2 (two) Medical times Branch daily. Indication s: atrial fibrillati on apixaban 5 2021-0 Yes 1358 5mg Take 1 [facility] rs mg tablet 4-03 tablet by ity o f 00:00: mouth 2 (two) Medical times Branch daily. Indication s: atrial fibrillati on apixaban 5 2021-0 Yes 1358 5mg Take 1 [facility] rs mg tablet 4-03 tablet by ity o f 00:00: mouth 2 (two) Medical times Branch daily. Indication s: atrial fibrillati on apixaban 5 2021-0 Yes 1358 5mg Take 1 [facility] rs mg tablet 4-03 tablet by ity o f 00:00: mouth 2 (two) Medical times Branch daily. Indication s: atrial fibrillati on apixaban 5 2021-0 Yes 1358 5mg Take 1 [facility] rs mg tablet 4-03 tablet by ity o f 00:00: mouth 2 (two) Medical times Branch daily. Indication s: atrial fibrillati on apixaban 5 2021-0 Yes 1358 5mg Take 1 [facility] rs mg tablet 4-03 tablet by ity o f 00:00: mouth 2 (two) Medical times Branch daily. Indication s: atrial fibrillati on apixaban 5 2021-0 Yes 1358 5mg Take 1 [facility] rs mg tablet 4-03 tablet by ity o f 00:00: mouth 2 00 (two) Medical times Branch daily. Indication s: atrial fibrillati on apixaban 5 2021-0 Yes 1358 5mg Take 1 [facility] rs mg tablet 4-03 tablet by ity o f 00:00: mouth 2 [place] 00 (two) Medical times Branch daily. Indication s: atrial fibrillati on apixaban 5 2021-0 Yes 1358 5mg Take 1 [facility] rs mg tablet 4-03 tablet by ity o f 00:00: mouth 2 [place] 00 (two) Medical times Branch daily. Indication s: atrial fibrillati on apixaban 5 2021-0 Yes 1358 5mg Take 1 [facility] rs mg tablet 4-03 tablet by ity o f 00:00: mouth 2 [place] 00 (two) Medical times Branch daily. Indication s: atrial fibrillati on apixaban 5 2021-0 Yes 1358 5mg Take 1 [facility] rs mg tablet 4-03 tablet by ity o f 00:00: mouth 2 [place] 00 (two) Medical times Branch daily. Indication s: atrial fibrillati on apixaban 5 2021-0 Yes 1358 5mg Take 1 [facility] rs mg tablet 4-03 tablet by ity o f 00:00: mouth 2 [place] 00 (two) Medical times Branch daily. Indication s: atrial fibrillati on apixaban 5 2021-0 Yes 1358 5mg Take 1 [facility] rs mg tablet 4-03 tablet by ity o f 00:00: mouth 2 00 (two) Medical times Branch daily. Indication s: atrial fibrillati on apixaban 2021-0 Yes 1358 5mg Take 1 [facility] rs mg tablet 4-03 tablet by ity o f 00:00: mouth 2 00 (two) Medical times Branch daily. Indication s: atrial fibrillati on apixaban 2021-0 Yes 1358 5mg Take 1 [facility] rs mg tablet 4-03 tablet by ity o f 00:00: mouth 2 [place] 00 (two) Medical times Branch daily. Indication s: atrial fibrillati on apixaban 2021-0 Yes 1358 5mg Take 1 [facility] rs mg tablet 4-03 tablet by ity o f 00:00: mouth 2 [place] 00 (two) Medical times Branch daily. Indication s: atrial fibrillati on apixaban 5 2021-0 Yes 1358 5mg Take 1 [facility] rs mg tablet 4-03 tablet by ity o f 00:00: mouth 2 [place] 00 (two) Medical times Branch daily. Indication s: atrial fibrillati on apixaban 5 2021-0 Yes 1358 5mg Take 1 [facility] rs mg tablet 4-03 tablet by ity o f 00:00: mouth 2 [place] 00 (two) Medical times Branch daily. Indication s: atrial fibrillati on apixaban 5 2021-0 Yes 1358 5mg Take 1 [facility] rs mg tablet 4-03 tablet by ity o f 00:00: mouth 2 (two) Medical times Branch daily. Indication s: atrial fibrillati on apixaban 5 2021-0 Yes 1358 5mg Take 1 [facility] rs mg tablet 4-03 tablet by ity o f 00:00: mouth 2 (two) Medical times Branch daily. Indication s: atrial fibrillati on apixaban 5 2021-0 Yes 1358 5mg Take 1 [facility] rs mg tablet 4-03 tablet by ity o f 00:00: mouth 2 (two) Medical times Branch daily. Indication s: atrial fibrillati on apixaban 5 2021-0 Yes 1358 5mg Take 1 [facility] rs mg tablet 4-03 tablet by ity o f 00:00: mouth 2 (two) Medical times Branch daily. Indication s: atrial fibrillati on apixaban 5 2021-0 Yes 1358 5mg Take 1 [facility] rs mg tablet 4-03 tablet by ity o f 00:00: mouth 2 (two) Medical times Branch daily. Indication s: atrial fibrillati on apixaban 5 2021-0 Yes 1358 5mg Take 1 [facility] rs mg tablet 4-03 tablet by ity o f 00:00: mouth 2 (two) Medical times Branch daily. Indication s: atrial fibrillati on apixaban 5 2021-0 Yes 1358 5mg Take 1 [facility] rs mg tablet 4-03 tablet by ity o f 00:00: mouth 2 (two) Medical times Branch daily. Indication s: atrial fibrillati on apixaban 5 2021-0 Yes 1358 5mg Take 1 [facility] rs mg tablet 4-03 tablet by ity o f 00:00: mouth 2 (two) Medical times Branch daily. Indication s: atrial fibrillati on apixaban 5 2021-0 Yes 1358 5mg Take 1 [facility] rs mg tablet 4-03 tablet by ity o f 00:00: mouth 2 00 (two) Medical times Branch daily. Indication s: atrial fibrillati on apixaban 5 2021-0 2021- No 1358 5mg Take 1 [facility] ers mg tablet 4-03 11-07 tablet by ity of 00:00: 00:00 mouth 2 [place] 00 :00 (two) Medical times Branch daily. Indication s: atrial fibrillati on Immunizations Ordered Filled Immunization Date Status Comments Sour e Immunization Name Name SARS-COV-2 COVID-19 2021-08-02 Completed [facility] of PFIZER VACCINE 00:00:00 [facility] SARS-COV-2 COVID-19 2021-08-02 Completed [facility] rsity of PFIZER VACCINE 00:00:00 [facility] SARS-COV-2 COVID-19 2021-08-02 Completed Unive rsity of PFIZER VACCINE 00:00:00 [facility] SARS-COV-2 COVID-19 2021-08-02 Completed Unive rsity of PFIZER VACCINE 00:00:00 [facility] SARS-COV-2 COVID-19 2021-08-02 Completed [facility]ive rsity of PFIZER VACCINE 00:00:00 [facility] SARS-COV-2 COVID-19 2021-08-02 Completed [facility]ive rsity of PFIZER VACCINE 00:00:00 [facility] SARS-COV-2 COVID-19 2021-08-02 Completed [facility]ive rsity of PFIZER VACCINE 00:00:00 [facility] SARS-COV-2 COVID-19 2021-08-02 Completed [facility]ive rsity of PFIZER VACCINE 00:00:00 [facility] SARS-COV-2 COVID-19 2021-08-02 Completed Unive rsity of PFIZER VACCINE 00:00:00 [facility] SARS-COV-2 COVID-19 2021-08-02 Completed Unive rsity of PFIZER VACCINE 00:00:00 [facility] SARS-COV-2 COVID-19 2021-08-02 Completed Unive rsity of PFIZER VACCINE 00:00:00 [facility] SARS-COV-2 COVID-19 2021-08-02 Completed Unive rsity of PFIZER VACCINE 00:00:00 [facility] SARS-COV-2 COVID-19 2021-08-02 Completed Unive rsity of PFIZER VACCINE 00:00:00 [facility] SARS-COV-2 COVID-19 2021-08-02 Completed Unive rsity of PFIZER VACCINE 00:00:00 [place] [facility] SARS-COV-2 COVID-19 2021-08-02 Completed Unive rsity of PFIZER VACCINE 00:00:00 [facility] Branch SARS-COV-2 COVID-19 2021-08-02 Completed Unive rsity of PFIZER VACCINE 00:00:00 [facility] Branch SARS-COV-2 COVID-19 2021-08-02 Completed Unive rsity of PFIZER VACCINE 00:00:00 [facility] Branch SARS-COV-2 COVID-19 2021-08-02 Completed Unive rsity of PFIZER VACCINE 00:00:00 [facility] Branch SARS-COV-2 COVID-19 2021-08-02 Completed Unive rsity of PFIZER VACCINE 00:00:00 [facility] Branch SARS-COV-2 COVID-19 2021-08-02 Completed Unive rsity of PFIZER VACCINE 00:00:00 [facility] Branch SARS-COV-2 COVID-19 2021-08-02 Completed Unive rsity of PFIZER VACCINE 00:00:00 [facility] Branch SARS-COV-2 COVID-19 2021-08-02 Completed Unive rsity of PFIZER VACCINE 00:00:00 [facility] Branch SARS-COV-2 COVID-19 2021-08-02 Completed Unive rsity of PFIZER VACCINE 00:00:00 [facility] Branch SARS-COV-2 COVID-19 2021-08-02 Completed Unive rsity of PFIZER VACCINE 00:00:00 [facility] Branch SARS-COV-2 COVID-19 2021-08-02 Completed Unive rsity of PFIZER VACCINE 00:00:00 [facility] Branch SARS-COV-2 COVID-19 2021-08-02 Completed Unive rsity of PFIZER VACCINE 00:00:00 [facility] Branch SARS-COV-2 COVID-19 2021-08-02 Completed Unive rsity of PFIZER VACCINE 00:00:00 [facility] Branch SARS-COV-2 COVID-19 2021-08-02 Completed [facility]ive rsity of PFIZER VACCINE 00:00:00 [facility] Branch SARS-COV-2 COVID-19 2021-08-02 Completed Unive rsity of PFIZER VACCINE 00:00:00 [facility] Branch SARS-COV-2 COVID-19 2021-08-02 Completed Unive rsity of PFIZER VACCINE 00:00:00 [facility] Branch SARS-COV-2 COVID-19 2021-08-02 Completed Unive rsity of PFIZER VACCINE 00:00:00 [facility] Branch SARS-COV-2 COVID-19 2021-08-02 Completed [facility]ive rsity of PFIZER VACCINE 00:00:00 [facility] SARS-COV-2 COVID-19 2021-08-02 Completed Unive rsity of PFIZER VACCINE 00:00:00 [facility] Branch SARS-COV-2 COVID-19 2021-08-02 Completed Unive rsity of PFIZER VACCINE 00:00:00 [facility] Branch SARS-COV-2 COVID-19 2021-08-02 Completed Unive rsity of PFIZER VACCINE 00:00:00 [facility] Branch SARS-COV-2 COVID-19 2021-08-02 Completed Unive rsity of PFIZER VACCINE 00:00:00 [facility] Branch SARS-COV-2 COVID-19 2021-08-02 Completed Unive rsity of PFIZER VACCINE 00:00:00 [facility] Branch SARS-COV-2 COVID-19 2021-08-02 Completed Unive rsity of PFIZER VACCINE 00:00:00 [facility] Branch SARS-COV-2 COVID-19 2021-08-02 Completed Unive rsity of PFIZER VACCINE 00:00:00 [facility] Branch SARS-COV-2 COVID-19 2021-08-02 Completed Unive rsity of PFIZER VACCINE 00:00:00 [facility] SARS-COV-2 COVID-19 2021-08-02 Completed Unive rsity of PFIZER VACCINE 00:00:00 [facility] Branch SARS-COV-2 COVID-19 2021-08-02 Completed Unive rsity of PFIZER VACCINE 00:00:00 [facility] Branch SARS-COV-2 COVID-19 2021-08-02 Completed [facility]ive rsity of PFIZER VACCINE 00:00:00 [facility] SARS-COV-2 COVID-19 2021-08-02 Completed Unive rsity of PFIZER VACCINE 00:00:00 [facility] SARS-COV-2 COVID-19 2021-08-02 Completed [facility]ive rsity of PFIZER VACCINE 00:00:00 [place] [facility] Influenza Virus 2020-09-24 Completed [facility] y [...] y of Vaccine Quad IM 3+ 00:00:[address] [facility] Branch Influenza Virus 2018-07-07 Completed [facility] y of Vaccine [facility] IM 3+ 00:00:00 [facility] Influenza Virus 2018-07-07 Completed [facility] y of Vaccine [facility] IM 3+ 00:00:00 [facility] Influenza Virus 2018-07-07 Completed [facility] y of Vaccine [facility] IM 3+ 00:00:00 [facility] Influenza Virus 2018-07-07 Completed [facility] y of Vaccine [facility] IM 3+ 00:00:00 [facility] Influenza Virus 2018-07-07 Completed [facility] y of Vaccine Quad IM 3+ 00:00:00 [facility] Influenza Virus 2018-07-07 Completed [facility] 3+ 00:00:00 [facility] Influenza Virus 2018-07-07 Completed [facility] IM 3+ 00:00:00 [facility] Influenza Virus 2018-07-07 Completed [facility] IM 3+ 00:00:00 [facility] Influenza Virus 2018-07-07 Completed [facility] IM 3+ 00:00:00 [facility] Influenza Virus 2018-07-07 Completed [facility] IM 3+ 00:00:00 [facility] Influenza Virus 2018-07-07 Completed [facility] IM 3+ 00:00:00 [facility] Influenza Virus 2018-07-07 Completed [facility] IM 3+ 00:00:00 [facility] Influenza Virus 2018-07-07 Completed [facility] IM 3+ 00:00:00 [facility] Influenza Virus 2018-07-07 Completed [facility] IM 3+ 00:00:00 [facility] Influenza Virus 2018-07-07 Completed [facility] IM 3+ 00:00:00 [facility] Influenza Virus 2018-07-07 Completed [facility] IM 3+ 00:00:00 [facility] Influenza Virus 2018-07-07 Completed [facility] IM 3+ 00:00:00 [facility] Influenza Virus 2018-07-07 Completed [facility] IM 3+ 00:00:00 [facility] Influenza Virus 2018-07-07 Completed [facility] IM 3+ 00:00:00 [facility] Influenza Virus 2018-07-07 Completed [facility] IM 3+ 00:00:00 [facility] Influenza Virus 2018-07-07 Completed [facility] IM 3+ 00:00:00 [facility] Influenza Virus 2018-07-07 Completed [facility] IM 3+ 00:00:00 [facility] Influenza Virus 2018-07-07 Completed [facility] IM 3+ 00:00:00 [facility] Influenza Virus 2018-07-07 Completed [facility] IM 3+ 00:00:00 [facility] Influenza Virus 2018-07-07 Completed [facility] IM 3+ 00:00:00 [facility] Influenza Virus 2018-07-07 Completed [facility] IM 3+ 00:00:00 [facility] Influenza Virus 2018-07-07 Completed [facility] IM 3+ 00:00:00 [facility] Influenza Virus 2018-07-07 Completed [facility] IM 3+ 00:00:00 [facility] Influenza Virus 2018-07-07 Completed [facility] IM 3+ 00:00:00 [facility] Influenza Virus 2018-07-07 Completed [facility] IM 3+ 00:00:00 [facility] Influenza Virus 2018-07-07 Completed [facility] IM 3+ 00:00:00 [facility] Influenza Virus 2018-07-07 Completed [facility] IM 3+ 00:00:00 [facility] Influenza Virus 2018-07-07 Completed [facility] IM 3+ 00:00:00 [facility] Influenza Virus 2018-07-07 Completed [facility] IM 3+ 00:00:00 [facility] Influenza Virus 2018-07-07 Completed [facility] IM 3+ 00:00:00 [facility] Influenza Virus 2018-07-07 Completed [facility] IM 3+ 00:00:00 [facility] Influenza Virus 2018-07-07 Completed [facility] IM 3+ 00:00:00 [facility] Influenza Virus 2018-07-07 Completed [facility] IM 3+ 00:00:00 [facility] Influenza Virus 2018-07-07 Completed [facility] IM 3+ 00:00:00 [facility] Influenza Virus 2018-07-07 Completed [facility] IM 3+ 00:00:00 [facility] Influenza Virus 2018-07-07 Completed [facility] IM 3+ 00:00:00 [facility] Influenza Virus 2018-07-07 Completed [facility] IM 3+ 00:00:00 [facility] Influenza Virus 2018-07-07 Completed [facility] IM 3+ 00:00:00 [facility] Influenza Virus 2018-07-07 Completed [facility] IM 3+ 00:00:00 [facility] Td 2017-08-01 Completed [facility] of 00:00:00 [facility] Td 2017-08-01 Completed [facility] of 00:00:00 [facility] Td 2017-08-01 Completed [facility] of 00:00:00 [facility] Td 2017-08-01 Completed [facility] of 00:00:00 [facility] Td 2017-08-01 Completed [facility] of 00:00:00 [facility] Td 2017-08-01 Completed [facility] of 00:00:00 [facility] Td 2017-08-01 Completed [facility] of 00:00:00 [facility] Td 2017-08-01 Completed [facility] of 00:00:00 [facility] Td 2017-08-01 Completed [facility] of 00:00:00 [facility] Td 2017-08-01 Completed [facility] of 00:00:00 [facility] Td 2017-08-01 Completed [facility] of 00:00:00 [facility] Td 2017-08-01 Completed [facility] of 00:00:00 [facility] Td 2017-08-01 Completed [facility] of 00:00:00 [facility] Td 2017-08-01 Completed [facility] of 00:00:00 [facility] Td 2017-08-01 Completed [facility] of 00:00:00 [facility] Td 2017-08-01 Completed [facility] of 00:00:00 [facility] Td 2017-08-01 Completed [facility] of 00:00:00 [facility] Td 2017-08-01 Completed [facility] of 00:00:00 [facility] Td 2017-08-01 Completed [facility] of 00:00:00 [facility] Td 2017-08-01 Completed [facility] of 00:00:00 [facility] Td 2017-08-01 Completed [facility] of 00:00:00 [facility] Td 2017-08-01 Completed [facility] of 00:00:00 [facility] Td 2017-08-01 Completed [facility] of 00:00:00 [facility] Td 2017-08-01 Completed [facility] of 00:00:00 [facility] Td 2017-08-01 Completed [facility] of 00:00:00 [facility] Td 2017-08-01 Completed [facility] of 00:00:00 [facility] Td 2017-08-01 Completed [facility] of 00:00:00 [facility] Td 2017-08-01 Completed [facility] of 00:00:00 [facility] Td 2017-08-01 Completed [facility] of 00:00:00 [facility] Td 2017-08-01 Completed [facility] of 00:00:00 [facility] Td 2017-08-01 Completed [facility] of 00:00:00 [facility] Td 2017-08-01 Completed [facility] of 00:00:00 [facility] Td 2017-08-01 Completed [facility] of 00:00:00 [facility] Td 2017-08-01 Completed [facility] of 00:00:00 [facility] Td 2017-08-01 Completed [facility] of 00:00:00 [facility] Td 2017-08-01 Completed [facility] of 00:00:00 [facility] Td 2017-08-01 Completed [facility] of 00:00:00 [facility] Td 2017-08-01 Completed [facility] of 00:00:00 [facility] Td 2017-08-01 Completed [facility] of 00:00:00 [facility] Td 2017-08-01 Completed [facility] of 00:00:00 [facility] Td 2017-08-01 Completed [facility] of 00:00:00 [facility] Td 2017-08-01 Completed [facility] of 00:00:00 [facility] Td 2017-08-01 Completed [facility] of 00:00:00 [facility] Td 2017-08-01 Completed [facility] of 00:00:00 [facility] Td 2017-08-01 Completed [facility] of 00:00:00 [facility] Influenza Virus 2016-05-22 Completed [facility] IM 3+ 00:00:00 [facility] Influenza Virus 2016-05-22 Completed [facility] IM 3+ 00:00:00 [facility] Influenza Virus 2016-05-22 Completed [facility] IM 3+ 00:00:00 [facility] Influenza Virus 2016-05-22 Completed [facility] IM 3+ 00:00:00 [facility] Influenza Virus 2016-05-22 Completed [facility] IM 3+ 00:00:00 [facility] Influenza Virus 2016-05-22 Completed [facility] IM 3+ 00:00:00 [facility] Influenza Virus 2016-05-22 Completed [facility] IM 3+ 00:00:00 [facility] Influenza Virus 2016-05-22 Completed [facility] IM 3+ 00:00:00 [facility] Influenza Virus 2016-05-22 Completed [facility] IM 3+ 00:00:00 [facility] Influenza Virus 2016-05-22 Completed [facility] IM 3+ 00:00:00 [facility] Influenza Virus 2016-05-22 Completed [facility] IM 3+ 00:00:00 [facility] Influenza Virus 2016-05-22 Completed [facility] IM 3+ 00:00:00 [facility] Influenza Virus 2016-05-22 Completed [facility] IM 3+ 00:00:00 [facility] Influenza Virus 2016-05-22 Completed [facility] IM 3+ 00:00:00 [facility] Influenza Virus 2016-05-22 Completed [facility] IM 3+ 00:00:00 [facility] Influenza Virus 2016-05-22 Completed [facility] IM 3+ 00:00:00 [facility] Influenza Virus 2016-05-22 Completed [facility] IM 3+ 00:00:00 [facility] Influenza Virus 2016-05-22 Completed [facility] IM 3+ 00:00:00 [facility] Influenza Virus 2016-05-22 Completed [facility] IM 3+ 00:00:00 [facility] Influenza Virus 2016-05-22 Completed [facility] IM 3+ 00:00:00 [facility] Influenza Virus 2016-05-22 Completed [facility] IM 3+ 00:00:00 [facility] Influenza Virus 2016-05-22 Completed [facility] IM 3+ 00:00:00 [facility] Influenza Virus 2016-05-22 Completed [facility] IM 3+ 00:00:00 [facility] Influenza Virus 2016-05-22 Completed [facility] IM 3+ 00:00:00 [facility] Influenza Virus 2016-05-22 Completed [facility] IM 3+ 00:00:00 [facility] Influenza Virus 2016-05-22 Completed [facility] IM 3+ 00:00:00 [facility] Influenza Virus 2016-05-22 Completed [facility] IM 3+ 00:00:00 [facility] Influenza Virus 2016-05-22 Completed [facility] IM 3+ 00:00:00 [facility] Influenza Virus 2016-05-22 Completed [facility] IM 3+ 00:00:00 [facility] Influenza Virus 2016-05-22 Completed [facility] IM 3+ 00:00:00 [facility] Influenza Virus 2016-05-22 Completed [facility] IM 3+ 00:00:00 [facility] Influenza Virus 2016-05-22 Completed [facility] IM 3+ 00:00:00 [facility] Influenza Virus 2016-05-22 Completed [facility] IM 3+ 00:00:00 [facility] Influenza Virus 2016-05-22 Completed [facility] IM 3+ 00:00:00 [facility] Influenza Virus 2016-05-22 Completed [facility] IM 3+ 00:00:00 [facility] Influenza Virus 2016-05-22 Completed [facility] IM 3+ 00:00:00 [facility] Influenza Virus 2016-05-22 Completed [facility] IM 3+ 00:00:00 [facility] Influenza Virus 2016-05-22 Completed [facility] IM 3+ 00:00:00 [facility] Influenza Virus 2016-05-22 Completed [facility] IM 3+ 00:00:00 [facility] Influenza Virus 2016-05-22 Completed [facility] IM 3+ 00:00:00 [facility] Influenza Virus 2016-05-22 Completed [facility] IM 3+ 00:00:00 [facility] Influenza Virus 2016-05-22 Completed [facility] IM 3+ 00:00:00 [facility] Influenza Virus 2016-05-22 Completed [facility] IM 3+ 00:00:00 [facility] Influenza Virus 2016-05-22 Completed [facility] IM 3+ 00:00:00 [facility] Influenza Virus 2016-05-22 Completed [facility] IM 3+ 00:00:00 [facility] Pneumococcal 2015-08-31 Completed [facility] o f [...] [facility] Influenza [...] [facility] 00:00:00 [facility] Influenza Virus 2015-05-25 Completed [facility] 00:[facility]00 [facility] Vital Signs Vital Name Observation Time Observation Value Comments Source Systolic blood 2022-06-09 23:56:00 136 mm[Hg] Univer sity of pressure [facility] Diastolic blood 2022-06-09 23:56:00 99 mm[Hg] Unive rsity of pressure [facility] Heart rate 2022-06-09 23:56:00 98 /min [facility] Body temperature 2022-06-09 22:12:00 35.83 Sara [facility] 2022-06-09 22:12:00 18 /min [facility] O[facility] saturation in 2022-06-09 22:12:00 98 /min [facility] Arterial blood by [facility] Pulse oximetry Branch Body weight 2022-06-09 09:22:00 130.999 kg [facility] BMI 2022-06-09 09:22:00 37.08 kg/m2 [facility] Body height 2022-06-06 00:36:00 188 cm [facility] Systolic blood 2022-06-04 12:45:00 139 mm[Hg] [facility] pressure [facility] Diastolic blood 2022-06-04 12:45:00 111 mm[Hg] [facility]ive rsity of pressure [facility] Heart rate 2022-06-04 12:45:00 92 /min [facility] Body temperature 2022-06-04 12:45:00 36.56 Sara [facility] Respiratory rate 2022-06-04 12:45:00 18 /min [facility] Body height 2022-06-04 12:45:00 188 cm [facility] Body weight 2022-06-04 12:45:00 131.543 kg [facility] BMI 2022-06-04 12:45:00 37.23 kg/m2 [facility] Oxygen saturation in 2022-06-04 12:45:00 96 /min [facility] Arterial blood by [email or web address] [facility]ifer Pulse oxim[facility] Systolic blood 2022-06-03 15:32:00 126 mm[Hg] Univer sity of pressure [facility] Diastolic blood 2022-06-03 15:32:00 86 mm[Hg] Unive rsity of pressure [facility] Heart rate 2022-06-03 15:32:00 81 /min [facility] Respiratory rate 2022-06-03 15:32:00 18 /min [facility] ers[facility] Body temperature 2022-06-03 12:13:00 35.83 Sara [facility] Oxygen saturation in 2022-06-03 12:13:00 99 /min [facility] Arterial blood by [employer] jennifer [facility] Body weight 2022-06-03 11:00:00 144.516 kg [facility] BMI 2022-06-03 11:00:00 40.91 kg/m2 [facility] Body height 2022-06-01 21:33:00 188 cm [facility] Systolic blood 2022-05-28 16:20:00 149 mm[Hg] [facility] Diastolic blood 2022-05-28 16:20:00 108 mm[Hg] Unive rsity of pressure [facility] Respiratory rate 2022-05-28 16:20:00 22 /min [facility] Oxygen saturation in 2022-05-28 16:20:00 99 /min [facility] Arterial blood by [facility] jennifer Pulse oxim[facility] Body temperature 2022-05-22 20:00:00 36.67 Sara [facility] Systolic blood 2022-05-22 19:00:00 139 mm[Hg] [facility] Diastolic blood 2022-05-22 19:00:00 100 mm[Hg] [facility]ive rsity of pressure [facility] Heart rate 2022-05-22 19:00:00 101 /min [facility] Respiratory rate 2022-05-22 19:00:00 18 /min [facility] Oxygen saturation in 2022-05-22 19:00:00 98 /min [facility] Arterial blood by [facility] Pulse oximetry [facility] Body weight 2022-05-22 15:52:00 141.069 kg [facility] BMI 2022-05-22 15:52:00 39.93 kg/m2 [facility] Body height 2022-05-22 15:49:00 188 cm [facility] Systolic blood 2022-05-20 18:00:00 133 mm[Hg] [facility] pressure [facility] Diastolic blood 2022-05-20 18:00:00 81 mm[Hg] [facility]ive rsity of pressure [facility] Heart rate 2022-05-20 18:00:00 92 /min [facility] Oxygen saturation in 2022-05-20 18:00:00 97 /min [facility] Arterial blood by [facility] jennifer [facility] Respiratory rate 2022-05-20 17:30:00 18 /min [facility] Body temperature 2022-05-20 17:00:00 36.22 Sara [facility] Body weight 2022-05-20 17:00:00 141.069 kg [facility] BMI 2022-05-20 17:00:00 39.93 kg/m2 [facility] Systolic blood 2022-05-20 13:51:00 133 mm[Hg] [facility] Diastolic blood 2022-05-20 13:51:00 102 mm[Hg] Unive rsity of pressure [facility] Heart rate 2022-05-20 13:49:00 105 /min [facility] Body height 2022-05-20 13:49:00 188 cm [facility] Body weight 2022-05-20 13:49:00 141.341 kg [facility] BMI 2022-05-20 13:49:00 40.01 kg/m2 [facility] Oxygen saturation in 2022-05-20 13:49:00 97 /min [facility] Arterial blood by [email or web address] [facility] P[facility] Systolic blood 2022-05-19 19:02:00 135 mm[Hg] [facility]ity of pressure [facility] Diastolic blood 2022-05-19 19:02:00 95 mm[Hg] Unive rsity of pressure [facility] Heart rate 2022-05-19 19:02:00 94 /min [facility] Body temperature 2022-05-19 19:02:00 35.78 Sara [facility] Respiratory rate 2022-05-19 19:02:00 18 /min [facility] Body height 2022-05-19 19:02:00 188 cm [facility] Body weight 2022-05-19 19:02:00 143.291 kg [facility] BMI 2022-05-19 19:02:00 40.56 kg/m2 [facility] Oxygen saturation in 2022-05-19 19:02:00 98 /min [facility] Arterial blood by [employer] [facility]ennifer P[facility] Systolic blood 2022-05-15 16:25:00 132 mm[Hg] [facility] of pressure [facility] Diastolic blood 2022-05-15 16:25:00 87 mm[Hg] Unive rsity of pressure [facility] Heart rate 2022-05-15 16:25:00 87 /min [facility] Body temperature 2022-05-15 16:25:00 36.39 Sara [facility] Respiratory rate 2022-05-15 16:25:00 20 /min [facility] Oxygen saturation in 2022-05-15 16:25:00 97 /min [facility] Arterial blood by [email or web address] [facility] P[facility] Body height 2022-05-11 16:18:00 188 cm [facility] Body weight 2022-05-11 16:18:00 144.697 kg [facility] BMI 2022-05-11 16:18:00 40.96 kg/m2 [facility] Systolic blood 2022-05-09 21:30:00 156 mm[Hg] Univer sity of pressure [facility] Diastolic blood 2022-05-09 21:30:00 106 mm[Hg] Unive rsity of pressure [facility] Heart rate 2022-05-09 21:30:00 92 /min [facility] Respiratory rate 2022-05-09 21:30:00 16 /min [facility] Oxygen saturation in 2022-05-09 21:30:00 99 /min [facility] Arterial blood by [email or web address] [facility] P[facility] Body temperature 2022-05-09 19:08:00 37.22 Sara [facility] Body height 2022-05-09 19:08:00 188 cm [facility] Body weight 2022-05-09 19:08:00 147.419 kg [facility] BMI 2022-05-09 19:08:00 41.73 kg/m2 [facility] Systolic blood 2022-05-09 18:25:00 181 mm[Hg] Univer sity of pressure [facility] Diastolic blood 2022-05-09 18:25:00 129 mm[Hg] Unive rsity of pressure [facility] Heart rate 2022-05-09 18:25:00 110 /min [facility] Respiratory rate 2022-05-09 18:25:00 18 /min [facility] Body height 2022-05-09 18:25:00 188 cm [facility] Body weight 2022-05-09 18:25:00 147.374 kg [facility] BMI 2022-05-09 18:25:00 41.71 kg/m2 [facility] Oxygen saturation in 2022-05-09 18:25:00 100 /min [facility] Arterial blood by [facility] Pulse oximetry Branch Systolic blood 2022-05-06 12:38:00 122 mm[Hg] Univer sity of pressure [facility] Diastolic blood 2022-05-06 12:38:00 88 mm[Hg] Unive rsity of pressure [facility] Heart rate 2022-05-06 12:38:00 90 /min [facility] Body temperature 2022-05-06 12:38:00 35.89 Sara [facility] Respiratory rate 2022-05-06 12:38:00 16 /min [facility] Oxygen saturation in 2022-05-06 12:38:00 96 /min [facility] Arterial blood by [facility] Pulse oximetry Branch Body weight 2022-05-06 07:48:00 145.469 kg [facility] BMI 2022-05-06 07:48:00 41.18 kg/m2 [facility] Body height 2022-05-06 01:06:00 188 cm [facility] Systolic blood 2022-04-30 16:00:00 116 mm[Hg] Univer sity of pressure [facility] Diastolic blood 2022-04-30 16:00:00 81 mm[Hg] Unive rsity of pressure [facility] Heart rate 2022-04-30 16:00:00 84 /min [facility] Body temperature 2022-04-30 13:11:00 35.83 Sara [facility] Respiratory rate 2022-04-30 13:11:00 18 /min [facility] Oxygen saturation in 2022-04-30 13:11:00 96 /min [facility] Arterial blood by [facility] Pulse oximetry Branch Body weight 2022-04-30 09:16:00 147.963 kg [facility] BMI 2022-04-30 09:16:00 41.88 kg/m2 [facility] Body height 2022-04-29 15:31:00 188 cm [facility] Systolic blood 2022-04-28 18:30:00 153 mm[Hg] Univer [facility]ity of pressure [facility] Diastolic blood 2022-04-28 18:30:00 116 mm[Hg] Unive rsity of pressure [facility] Heart rate 2022-04-28 18:30:00 111 /min [facility] Respiratory rate 2022-04-28 18:30:00 18 /min [facility] Body height 2022-04-28 18:30:00 188 cm [facility] Body weight 2022-04-28 18:30:00 146.965 kg [facility] BMI 2022-04-28 18:30:00 41.60 kg/m2 [facility] Oxygen saturation in 2022-04-28 18:30:00 96 /min [facility] Arterial blood by [facility] jennifer Pulse oximetry Branch Systolic blood 2022-04-23 16:32:00 123 mm[Hg] Univer sity of pressure [facility] Diastolic blood 2022-04-23 16:32:00 88 mm[Hg] Unive rsity of pressure [facility] Heart rate 2022-04-23 16:32:00 85 /min [facility] Body temperature 2022-04-23 16:32:00 35.06 Sara [facility] Respiratory rate 2022-04-23 16:32:00 18 /min [facility] Oxygen saturation in 2022-04-23 16:32:00 98 /min [facility] Arterial blood by [place] Medi jennifer Pulse oximetry Branch Body weight 2022-04-23 08:33:00 142.475 kg [facility] BMI 2022-04-23 08:33:00 40.33 kg/m2 [facility] Body height 2022-04-22 17:53:00 188 cm [facility] Systolic blood 2022-04-17 12:19:00 111 mm[Hg] [facility] Diastolic blood 2022-04-17 12:19:00 78 mm[Hg] [facility] Heart rate 2022-04-17 12:19:00 99 /min [facility] Body temperature 2022-04-17 12:19:00 36.94 Sara [facility] [place] [facility] Respiratory rate 2022-04-17 12:19:00 18 /min [facility] Body height 2022-04-17 12:19:00 188 cm [facility] Body weight 2022-04-17 12:19:00 144.697 kg [facility] BMI 2022-04-17 12:19:00 40.96 kg/m2 [facility] Oxygen saturation in 2022-04-17 12:19:00 99 /min [facility] Arterial blood by [email or web address] [email or web address] Pulse oxim[facility] Systolic blood 2022-04-15 20:00:00 157 mm[Hg] [facility] [place] [facility] Diastolic blood 2022-04-15 20:00:00 89 mm[Hg] [facility] Heart rate 2022-04-15 20:00:00 102 /min [facility] Respiratory rate 2022-04-15 20:00:00 19 /min [facility] Oxygen saturation in 2022-04-15 20:00:00 99 /min [facility] Arterial blood by [email or web address] jennifer P[facility] Body temperature 2022-04-15 18:41:00 36.11 Sara [facility] [place] [facility] Body height 2022-04-15 18:41:00 188 cm [facility] Body weight 2022-04-15 18:41:00 145.151 kg [facility] BMI 2022-04-15 18:41:00 41.09 kg/m2 [facility] Systolic blood 2022-03-26 19:15:00 125 mm[Hg] [facility] [place] [facility] Diastolic blood 2022-03-26 19:15:00 89 mm[Hg] [facility] Heart rate 2022-03-26 19:15:00 99 /min [facility] Respiratory rate 2022-03-26 19:15:00 18 /min [facility] Body weight 2022-03-26 19:15:00 144.697 kg [facility] BMI 2022-03-26 19:15:00 40.96 kg/m2 [facility] Oxygen saturation in 2022-03-26 19:15:00 97 /min [facility] Arterial blood by [facility] Pulse oximetry Branch Procedures Procedure Date / Time Performing Clinician Source Performed AUTHORIZATION FOR RELEASE 2022-06-12 06:01:00 Doctor Unassigned, No [facility] HOME HEALTH - OTHER 2022-06-10 06:01:00 [facility], No [facility] (AUTOMATED) 2022-06-09 22:52:00 Bj Weiss [facility] COVID-19 (ID NOW RAPID 2022-06-09 20:00:00 Rosales Willard [facility] TESTING) [facility] POCT GLUCOSE (AUTOMATED) 2022-06-09 17:56:00 Bj Weiss [facility] POCT GLUCOSE (AUTOMATED) 2022-06-09 13:39:00 Bj Weiss [facility] BASIC METABOLIC PANEL 2022-06-09 11:16:00 [facility] ([facility], K, CL, CO2, GLUCOSE, Medica l Branch BUN, CREATININE, CA) CBC WITH DIFF 2022-06-09 11:16:00 Debby Mays [facility] POCT GLUCOSE (AUTOMATED) 2022-06-09 02:59:00 Bj Weiss Uni [facility] POCT GLUCOSE (AUTOMATED) 2022-06-08 22:45:00 Bj Weiss [facility] POCT GLUCOSE (AUTOMATED) 2022-06-08 17:33:00 Bj Weiss [facility] BLOOD CULTURE SCREEN 2022-06-08 15:34:00 [facility] ([facility]OMATED) 2022-06-08 13:38:00 Bj Weiss [facility] COMP. METABOLIC PANEL 2022-06-08 10:57:00 Criss Leyva [facility] ([id number]) Medical Branch CBC WITH DIFF 2022-06-08 10:57:00 Debby Mays [facility] N-TERMINAL PRO-BNP 2022-06-08 10:57:00 Debby Mays [facility] BASIC METABOLIC PANEL 2022-06-08 03:02:00 Tommy [facility] (NA, K, CL, CO2, GLUCOSE, Fernanda J Medica l Branch BUN, CREATININE, CA) POCT GLUCOSE (AUTOMATED) 2022-06-08 01:25:00 Bj Weiss [facility] POCT GLUCOSE (AUTOMATED) 2022-06-07 21:57:00 Bj Weiss [facility] POCT GLUCOSE (AUTOMATED) 2022-06-07 16:34:00 Bj Weiss [facility] US RETROPERITONEAL 2022-06-07 15:10:00 Tommy [facility] 2022-06-07 13:17:00 Magalis [facility] POTASSIUM, URINE RANDOM 2022-06-07 13:17:00 Magalis [facility] SODIUM, URINE RANDOM 2022-06-07 13:17:00 Magalis [facility] PROTEIN CREAT RATIO URINE 2022-06-07 13:17:00 Marjorie Blancas [facility] POCT GLUCOSE (AUTOMATED) 2022-06-07 12:48:00 Bj Weiss [facility] CREATINE KINASE 2022-06-07 08:47:00 [facility]UM 2022-06-07 08:47:00 [facility] BASIC METABOLIC PANEL 2022-06-07 08:47:00 Debby Mays [facility] (NA, K, CL, CO2, GLUCOSE, Medica l Branch BUN, CREATININE, CA) CBC WITH DIFF 2022-06-07 08:47:00 Debby Mays [facility] N-TERMINAL PRO-BNP 2022-06-07 08:47:00 Bj Weiss [facility] POCT GLUCOSE (AUTOMATED) 2022-06-06 21:31:00 Criss Leyva [facility] POCT GLUCOSE (AUTOMATED) 2022-06-06 16:40:00 Criss Leyva [facility] POCT GLUCOSE (AUTOMATED) 2022-06-06 12:48:00 Criss Leyva [facility] MRSA / MSSA SCREEN BY 2022-06-06 10:23:00 [facility], [facility] CORTISOL AM 2022-06-06 08:34:[address] [facility] FREE T4 2022-06-06 08:34:[address] [facility] THYROID STIMULATING 2022-06-06 08:34:00 Yared Larios [facility] HORMONE [facility] BASIC METABOLIC PANEL 2022-06-06 08:34:00 [facility] (NA, K, CL, CO2, GLUCOSE, Medica l Branch BUN, CREATININE, CA) CBC WITH DIFF 2022-06-06 08:34:00 Debby Mays [facility] GLYCOSYLATED HEMOGLOBIN 2022-06-06 08:34:00 [facility] ([facility] CT HEAD WO CONTRAST 2022-06-05 22:02:10 Martínez [facility] XR CHEST 1 VW 2022-06-05 22:01:15 Martínez [facility] URINALYSIS 2022-06-05 21:22:00 Martínez [facility] URINE DRUG (IMMUNOASSAY) 2022-06-05 21:22:[address] [facility] DRUG Medical [facility] SCREEN W/O REFLEX AC PANEL 20 + LACTIC ACID 2022-06-05 21:16:[address] [facility] AMMONIA, PLASMA 2022-06-05 21:08:00 Martínez [facility] TROPONIN I 2022-06-05 21:08:00 Martínez [facility] COMP. METABOLIC PANEL 2022-06-05 21:08:00 Khanh Soliz [facility] ([id number]) [facility] CBC WITH DIFF 2022-06-05 21:08:00 [facility] PROTHROMBIN TIME / INR 2022-06-05 21:08:00 Khanh Soliz [facility] HB ECG ROUTINE & RHYTHM 2022-06-05 21:03:41 Mart[facility]nez [facility] XR KNEE <3 VW LEFT 2022-06-04 13:32:05 Kimi Lopez [facility] CONSENT/REFUSAL FOR 2022-06-04 12:31:14 Doctor Unassigned, No Un [facility] DIAGNOSIS AND TREATMENT Name [facility] POCT GLUCOSE (AUTOMATED) 2022-06-03 13:19:00 Bj Weiss [facility] MAGNESIUM 2022-06-03 08:07:00 Janiya Alonzo [facility] COMP. METABOLIC PANEL 2022-06-03 08:07:00 Janiya Alonzo [facility] ([id number]) [facility] N-TERMINAL PRO-BNP 2022-06-03 08:07:00 Janiya Alonzo [facility] POCT GLUCOSE (AUTOMATED) 2022-06-02 22:17:00 Bj Weiss [facility] POCT GLUCOSE (AUTOMATED) 2022-06-02 17:11:00 Asad Armendariz [facility] POCT GLUCOSE (AUTOMATED) 2022-06-02 13:00:00 Aasd Armendariz [facility] ACUTE CARE VENOUS BLOOD 2022-06-02 10:01:00 Janiya Alonzo [facility] GAS [facility] PHOSPHORUS 2022-06-02 09:29:00 Janiya Alonzo [facility] VITAMIN B12, LEVEL 2022-06-02 09:29:00 [facility] TROPONIN I 2022-06-02 09:29:00 Vanita [facility] COMP. METABOLIC PANEL 2022-06-02 09:29:00 Vanita ambreen [facility] ([id number]) [facility] CBC WITH DIFF 2022-06-02 09:29:00 Vanita [facility] VITAMIN D, 25-OH 2022-06-02 09:29:00 Vanita [facility] POCT GLUCOSE (AUTOMATED) 2022-06-02 09:17:00 Asad Armendariz [facility] MAGNESIUM 2022-06-02 05:52:00 Isela [facility] TROPONIN I 2022-06-02 05:52:00 Isela [facility] BASIC METABOLIC PANEL 2022-06-02 05:52:00 Isela [facility] (NA, K, CL, CO2, GLUCOSE, Medica l Branch BUN, CREATININE, CA) N-TERMINAL PRO-BNP 2022-06-02 05:52:00 [facility] 2022-06-02 00:25:00 Isela [facility] POCT GLUCOSE (AUTOMATED) 2022-06-02 00:23:00 Asad Armendariz [facility] POCT GLUCOSE (AUTOMATED) 2022-06-01 21:42:00 Asad Armendariz [facility] XR CHEST 1 VW 2022-06-01 18:05:00 Asad Armendariz [facility] TROPONIN I 2022-06-01 17:45:00 Asad Armendariz [facility] BASIC METABOLIC PANEL 2022-06-01 17:45:00 Asad Armendariz [facility] (NA, K, CL, CO2, GLUCOSE, Medica l Branch BUN, CREATININE, CA) CBC WITH DIFF 2022-06-01 17:45:00 Asad Armendariz [facility] N-TERMINAL PRO-BNP 2022-06-01 17:45:00 Asad Armendariz [facility] HB ECG ROUTINE & RHYTHM 2022-06-01 17:37:46 Asad Armendariz [facility] CATH PROCEDURE LOG 2022-05-28 14:33:43 Hallie [facility] ABDOMEN PELVIS W 2022-05-22 17:58:34 Mary Reynaga [facility] CONTRAST [facility] LIPASE 2022-05-22 16:29:00 Mary Reynaga [facility] TROPONIN I 2022-05-22 16:29:00 Mary Reynaga [facility] COMP. METABOLIC PANEL 2022-05-22 16:29:00 Mary Reynaga [facility] ([id number]) [facility] CBC WITH DIFF 2022-05-22 16:29:00 Mary Reynaga [facility] N-TERMINAL PRO-BNP 2022-05-22 16:29:00 [facility] POCT GLUCOSE (AUTOMATED) 2022-05-15 16:24:00 Gino Flores [facility] POCT GLUCOSE (AUTOMATED) 2022-05-15 13:10:00 Gino Flores [facility] MAGNESIUM 2022-05-15 09:52:00 Jasen Lee [facility] BASIC METABOLIC PANEL 2022-05-15 09:52:00 Jasen Lee [facility] (NA, K, CL, CO2, GLUCOSE, Medica l Branch BUN, CREATININE, CA) CBC WITH DIFF 2022-05-15 09:52:00 Jasen Lee [facility] POCT GLUCOSE (AUTOMATED) 2022-05-15 00:56:00 Gino Flores [facility] POCT GLUCOSE (AUTOMATED) 2022-05-14 21:29:00 Gino Flores [facility] POCT GLUCOSE (AUTOMATED) 2022-05-14 13:16:00 [facility] 2022-05-14 07:30:00 Jasen Lee [facility] BASIC METABOLIC PANEL 2022-05-14 07:30:00 Jasen Lee [facility] (NA, K, CL, CO2, GLUCOSE, Medica l Branch BUN, CREATININE, CA) CBC WITH DIFF 2022-05-14 07:30:00 Jasen Lee [facility] ACTIVATED PARTIAL 2022-05-14 07:30:00 Gino Flores [facility] N-TERMINAL PRO-BNP 2022-05-14 07:30:00 Bruce Glover [facility] HOME HEALTH - OTHER 2022-05-14 05:01:00 Doctor Unassigned, No [facility] PO[facility] GLUCOSE (AUTOMATED) 2022-05-14 00:36:00 Gino Flores [facility] ACTIVATED PARTIAL 2022-05-13 21:22:00 Belen [facility] POCT GLUCOSE (AUTOMATED) 2022-05-13 21:22:00 Gino Flores [facility] POCT GLUCOSE (AUTOMATED) 2022-05-13 17:25:00 Gino Flores [facility] TRANSTHORACIC ECHO (TTE) 2022-05-13 16:40:00 Alireza Ugarte [facility] COMPLETE W/ CONTRAST [facility] ACTIVATED PARTIAL 2022-05-13 14:50:00 Gino Flores [facility] POCT GLUCOSE (AUTOMATED) 2022-05-13 13:15:00 Gino Flores [facility] HB ECG ROUTINE & RHYTHM 2022-05-13 12:33:54 Bruce Glover [facility] MAGNESIUM 2022-05-13 09:06:00 Jasen Lee [facility] BASIC METABOLIC PANEL 2022-05-13 09:06:00 Alexmehdi Jasen [facility] (NA, K, CL, CO2, GLUCOSE, Medica l Branch BUN, CREATININE, CA) TROPONIN I 2022-05-13 02:37:00 Prema Solo [facility] ACTIVATED PARTIAL 2022-05-13 02:37:00 Gino Flores [facility] POCT GLUCOSE (AUTOMATED) 2022-05-13 02:36:00 Gino Flores [facility] TROPONIN I 2022-05-12 22:13:00 [facility] PO[facility] GLUCOSE (AUTOMATED) 2022-05-12 20:14:00 Gino Flores [facility] TROPONIN I 2022-05-12 19:24:00 [facility] 2022-05-12 19:24[facility]OMATED) 2022-05-12 17:16:00 Gino Flores [facility] URIC ACID 2022-05-12 13:19:00 [facility] 2022-05-12 13:19:00 [facility] BASIC METABOLIC PANEL 2022-05-12 13:19:00 [facility] (NA, K, CL, CO2, GLUCOSE, Medica l Branch BUN, CREATININE, CA) ACTIVATED PARTIAL 2022-05-12 13:07:00 [facility]OMATED) 2022-05-12 13:06:00 Gino Flores [facility] HB ECG ROUTINE & RHYTHM 2022-05-12 12:54:00 [facility]UM 2022-05-12 11:07:00 [facility] BASIC METABOLIC PANEL 2022-05-12 11:07:00 [facility] (NA, K, CL, CO2, GLUCOSE, Medica l Branch BUN, CREATININE, CA) ACTIVATED PARTIAL 2022-05-12 01:15:00 Belen [facility] POCT GLUCOSE (AUTOMATED) 2022-05-12 01:00:00 Gino Flores [facility] TROPONIN I 2022-05-11 21:17:00 [facility] PO[facility]SE (AUTOMATED) 2022-05-11 21:13:00 Gino Flores [facility] POCT GLUCOSE (AUTOMATED) 2022-05-11 17:58:00 Gino Flores [facility] HB ECG ROUTINE & RHYTHM 2022-05-11 17:33:51 Belen [facility] CREATININE, URINE RANDOM 2022-05-11 16:48:00 Belen [facility] UREA NITROGEN, URINE 2022-05-11 16:48:00 Bruce Glover [facility] SODIUM, URINE RANDOM 2022-05-11 16:48:00 Belen [facility] TROPONIN I 2022-05-11 16:45:00 Belen [facility] PROTHROMBIN TIME / INR 2022-05-11 16:45:00 Belen [facility] ACTIVATED PARTIAL 2022-05-11 16:45:00 Belen [facility] LACTIC ACID WHOLE BLOOD 2022-05-11 16:45:00 Belen [facility] POCT GLUCOSE (AUTOMATED) 2022-05-11 14:54:00 Hallie [facility] CT HEAD WO CONTRAST 2022-05-11 08:39:03 Prieto Olivares [facility] XR CHEST 1 VW 2022-05-11 08:37:00 Prieto Olivares [facility] MAGNESIUM 2022-05-11 08:13:00 [facility] FERRITIN SERUM 2022-05-11 08:13:00 [facility] TROPONIN I 2022-05-11 08:13:00 Prieto Olivares [facility] COMP. METABOLIC PANEL 2022-05-11 08:13:00 [facility] ([id number] IRON PANEL 2022-05-11 08:13:00 [facility] CBC WITH DIFF 2022-05-11 08:13:00 Prieto Olivares [facility] N-TERMINAL PRO-BNP 2022-05-11 08:13:00 Prieto Olivares [facility] HB ECG ROUTINE & RHYTHM 2022-05-11 07:45:[address] [facility] CONSENT/REFUSAL FOR 2022-05-11 07:27:49 Doctor Unassigned, No [facility] [place] [facility] HOSPITAL ADMISSION 2022-05-11 05:01:00 Doctor Unassigned, No Uni [facility] URINALYSIS 2022-05-09 20:53:00 Singer [facility] TROPONIN I 2022-05-09 19:45:00 Singer Pia [facility] COMP. METABOLIC PANEL 2022-05-09 19:45:00 [facility]ia [facility] ([id number]) [facility] CBC WITH DIFF 2022-05-09 19:45:00 Pia Watts [facility] RAPID INFLUENZA A/B 2022-05-09 19:45:00 Pia Watts [facility] N-TERMINAL PRO-BNP 2022-05-09 19:45:00 Pia Watts [facility] XR CHEST 1 VW 2022-05-09 19:43:40 Singer [facility] CONSENT/REFUSAL FOR 2022-05-09 18:59:52 Doctor Unassigned, No [facility] [place] [facility] MAGNESIUM 2022-05-06 09:13:00 Debby Mays [facility] TROPONIN I 2022-05-06 09:13:00 Debby Mays [facility] BASIC METABOLIC PANEL 2022-05-06 09:13:00 Debby Mays [facility] (NA, K, CL, CO2, GLUCOSE, Medica l Branch BUN, CREATININE, CA) CBC WITH DIFF 2022-05-06 09:13:00 Debby Mays [facility] TROPONIN I 2022-05-06 03:01:00 Davon Debby Heidi [facility] EKG-12 LEAD 2022-05-05 22:35:[address] [facility] URINALYSIS 2022-05-05 20:37:[address] [facility] MAGNESIUM 2022-05-05 19:55:[address] [facility] TROPONIN I 2022-05-05 19:55:[address] [facility] THYROID STIMULATING 2022-05-05 19:55:00 Debby Mays [facility] HORMONE [facility] COMP. METABOLIC PANEL 2022-05-05 19:55:00 Tomas Mcguire [facility] ([id number]) [facility] CBC WITH DIFF 2022-05-05 19:55:[address] [facility] GLYCOSYLATED HEMOGLOBIN 2022-05-05 19:55:00 Debby Mays [facility] (A1C) [facility] N-TERMINAL PRO-BNP 2022-05-05 19:55:00 Tomas Mcguire [facility] XR CHEST 1 VW 2022-05-05 19:41:[address] [facility] MAGNESIUM 2022-04-30 10:01:00 Isela Bj [facility] BASIC METABOLIC PANEL 2022-04-30 10:01:00 Bj Weiss [facility] (NA, K, CL, CO2, GLUCOSE, Medica l Branch BUN, CREATININE, CA) N-TERMINAL PRO-BNP 2022-04-30 10:01:00 Bj Weiss [facility] POCT GLUCOSE (AUTOMATED) 2022-04-30 01:12:00 Bj Weiss [facility] POCT GLUCOSE (AUTOMATED) 2022-04-29 22:29:00 Bj Weiss [facility] EKG-12 LEAD 2022-04-29 19:06:[address] [facility] COMP. METABOLIC PANEL 2022-04-29 16:58:00 Abilio [facility] ([id number]) [facility] TROPONIN I 2022-04-29 16:16:[address] [facility] URINALYSIS 2022-04-29 16:16:[address] [facility] N-TERMINAL PRO-BNP 2022-04-29 16:16:00 [facility]W 2022-04-29 15:54:[address] [facility] CBC WITH DIFF 2022-04-29 15:37:[address] [facility] PROTHROMBIN TIME / INR 2022-04-29 15:37:00 Abilio [facility] COVID-19 (ID NOW RAPID 2022-04-29 15:37:00 [facility] HOME HEALTH - OTHER 2022-04-29 05:01:00 Doctor Unassigned, No Un [facility] Name [facility] TROPONIN I 2022-04-23 15:40:00 Vanita ambreen [facility] MAGNESIUM 2022-04-23 09:35:00 Criss Leyva [facility] TROPONIN I 2022-04-23 09:35:00 Vanita [facility] BASIC METABOLIC PANEL 2022-04-23 09:35:00 Criss Leyva [facility] (NA, K, CL, CO2, GLUCOSE, Medica l Branch BUN, CREATININE, CA) CBC WITH DIFF 2022-04-23 09:35:00 Criss Leyva [facility] TROPONIN I 2022-04-22 16:29:00 Pia Watts [facility] COMP. METABOLIC PANEL 2022-04-22 15:26:00 Singer Pia [facility] ([id number]) Medical Branch XR CHEST 1 VW 2022-04-22 14:09:51 Singer [facility] TROPONIN I 2022-04-22 13:59:00 Singer [facility] CBC WITH DIFF 2022-04-22 13:59:00 Singer [facility] N-TERMINAL PRO-BNP 2022-04-22 13:59:00 Singer [facility] HB ECG ROUTINE & RHYTHM 2022-04-22 13:51:27 [facility] CONSENT/REFUSAL FOR 2022-04-17 12:16:10 Doctor Unassigned, No [facility] [place] [facility] TROPONIN I 2022-04-15 19:05:00 Joseph Don [facility] BASIC METABOLIC PANEL 2022-04-15 19:05:00 Joseph Don [facility] (NA, K, CL, CO2, GLUCOSE, Medica l Branch BUN, CREATININE, CA) CBC WITH DIFF 2022-04-15 19:05:00 Joseph Don [facility] N-TERMINAL PRO-BNP 2022-04-15 19:05:00 [facility] CONSENT/REFUSAL FOR 2022-04-15 18:34:25 Doctor Unassigned, No [facility] [place] [facility] HEALTH - OTHER 2022-04-09 05:01:00 Doctor Unassigned, No Un [facility] 485 2022-03-12 05:01:00 Doctor [facility]assigned, [facility] [id number] 2021-03-01 00:00:00 KHANG [facility] [id number] 2021-03-01 00:00:00 KHANG [facility] [id number] 2021-01-03 00:00:00 DU [facility] [id number] 2020-12-04 00:00:00 NEETU EVER Miller [facility] [id number] 2020-12-04 00:00:00 NEETU CURTIS [place] [facility] Encounters Start End Encounter Admission Attending Care Care Encounter Source Date/Time Date/Time Type Type Clinicians Facility Department ID 2022-06-04 Outpatient Paul LOPES [facility] LEONARDA [id number] Univers 12:56:19 HAIDER [facility] 2021-06-04 Emergency [facility] [id number] Univers 08:19:20 ity of [facility] 2021-06-04 Emergency [facility] [id number] Univers 07:09:20 ity of [facility] 2021-06-04 Emergency [facility] [id number] Univers 03:59:42 ity of [facility] 2021-06-04 Emergency [facility] [id number] Univers 02:43:50 ity of [facility] 2021-06-03 Emergency [facility] [id number] Univers 23:52:27 ity of [facility] 2021-06-03 Emergency [facility] [id number] Univers 14:16:29 ity of [facility] 2021-06-03 Emergency [facility] [id number] Univers 10:28:47 ity of [facility] 2021-06-03 Emergency [facility] [id number] Univers 10:04:22 ity of [facility] 2021-06-03 Emergency [facility] [id number] Univers 09:15:54 ity of [facility] 2021-06-03 Emergency [facility] [id number] Univers 02:12:32 ity of [facility] 2021-06-02 Emergency [facility] [id number] Univers 22:26:27 ity of [facility] 2021-06-02 Emergency [facility] [id number] Univers 22:18:01 ity of [facility] 2021-06-02 Emergency [facility] [id number] Univers 21:45:53 ity of [facility] 2021-06-02 Emergency [facility] [id number] Univers 18:24:09 ity of [facility] 2021-06-02 Emergency [facility] [id number] Univers 15:33:14 ity of [facility] 2021-06-02 Emergency [facility] [id number] Univers 13:53:03 ity of [facility] 2021-06-02 Emergency [facility] [id number] Univers 11:21:12 ity of [facility] 2021-06-02 Emergency [facility] [id number] Univers 07:19:21 ity of [facility] 2021-06-02 Emergency [facility] [id number] Univers 02:28:47 ity of [facility] 2021-06-02 Emergency [facility] [id number] Univers 00:03:36 ity of [facility] 2021-06-01 Emergency [facility] [id number] Univers 18:26:39 ity of [facility] 2021-06-01 Emergency [facility] [id number] Univers 16:19:54 ity of [facility] 2021-06-01 Emergency [facility] [id number] Univers 07:53:57 ity of [facility] 2021-05-31 Emergency [facility] [id number] Univers 22:36:25 ity of [facility] 2021-05-31 Emergency [facility] [id number] Univers 19:41:41 ity of [facility] 2021-05-31 Emergency [facility] [id number] Univers 10:37:26 ity of [facility] 2021-05-31 Emergency [facility] [id number] Univers 04:43:40 ity of [facility] 2021-05-30 Emergency [facility] [id number] Univers 23:56:43 ity of [facility] 2021-05-30 Emergency [facility] [id number] Univers 21:10:05 ity of [facility] 2021-05-30 Emergency [facility] [id number] Univers 16:21:58 ity of [facility] 2021-05-30 Emergency [facility] [id number] Univers 14:28:28 ity of [facility] 2021-05-30 Emergency [facility] [id number] Univers 11:04:08 ity of [facility] 2022-07-11 2022-07-11 Case Alexander, Cardiomem Interp [facility] 1.2. 840.114 [id number] Univers 11:00:00 11:30:00 Management Jonathan Zapata [facility] 350.1.13. 10 [place] [id number] [facility] [facility] [address] [place] OFFICE BUILDING 2022-07-11 2022-07-11 Outpatient R NEFTALI [facility] [id number] Univers 11:00:00 11:00:00 JONATHAN [facility] 2022-06-30 2022-06-30 [facility] [id number] Univers 16:30:00 16:30:00 FRANCESCA blaire [facility] 2022-06-17 2022-06-17 Outpatient R MYRANDA [facility] [id number] Univers 14:20:00 14:20:00 ERNIE [facility] 2022-06-16 2022-06-16 Telephone [facility] 1.2.604.392 [id number] Univers 00:00:00 00:00:00 Adrianna ARZATE 350.1.13.10 ity of [place] [phone] Sd [address] 2022-06-13 2022-06-13 Outpatient R IVANA [facility] [id number] Univers 15:30:00 15:30:00 ADRIANNA mejias [facility] 2022-06-12 2022-06-12 Orders Doctor SHAFFER 1.2.840.114 [id number] Univers 00:00:00 00:00:00 Only Unassigned, KYLE 350.1.13.10 ity of [place] [facility] 4.2.7.2.686 [place] as [id number] [facility] [address] 2022-06-10 2022-06-10 Transition SRIDHAR Seth 1.2.840.114 [id number] Univers 00:00:00 00:00:00 of Care Page VEGA 350.1.13.10 it y [place] [id number] [facility] [address] 2022-06-10 2022-06-10 Orders Doctor EDMUND 1.2.840.114 [id number] Univers 00:00:00 00:00:00 Only Unassigned, KYLE 350.1.13.10 ity of [place] [facility] 4.2.7.2.686 [place] as [id number] [facility] [address] 2022-06-05 2022-06-09 Inpatient X ISELA [facility] DIONISIO [id number] Univers 15:57:00 18:30:00 BJ ity [facility] 2022-06-05 2022-06-09 Hospital Khanh Soliz [facility] 1.2.8 40.114 [id number] Univers 15:57:00 18:30:00 Encounter Criss Leyva 350.1.13.10 ity of Bj Weiss [place] 4.2.7.2.686 [facility] [id number] [place] [address] [place] 2022-06-06 2022-06-06 Case Alexander, Cardiomem Interp [facility] 1.2. 840.114 [id number] Univers 11:00:00 11:30:00 Management ZapataRodolfoJonathan Critical access hospital 350.1.13. 10 [place] [id number] [facility] [facility] [address] OFFICE BUILDING 2022-06-05 2022-06-05 Telephone Kin [facility] 1.2.740.647 [id number] Univers 00:00:00 00:00:00 Cornelia TSANG 350.1.13.10 ity of [place] [id number] Sd dical NAL [address] BUILDING 2022-06-04 2022-06-04 Emergency X [facility] E[facility] [id number] Univers 07:48:00 10:01:00 [facility] 2022-[facility]-04 2022-06-04 Emergency [facility] 1.2.840.114 [id number] Univers 07:48:00 10:01:00 Kimi S LENORE 350.1.13.10 i ty of [place] 4.2.7.2.686 [facility] [id number] [place] [address] [place] 2022-06-04 2022-06-04 Transition SRIDHAR Seth 1.2.840.114 [id number] Univers 00:00:00 00:00:00 of Care Page B [place] 350.1.13.10 it y [place] [id number] [facility] [address] 2022-06-01 2022-06-03 Inpatient X ISELA [facility] [id number] Univers 12:35:00 11:25:00 BJ ity of [facility] 2022-06-01 2022-06-03 [facility] Asad Armendariz [facility] 1.2.840.11 4 [id number] Univers 12:35:00 11:25:00 Encounter Harjinder Weissgaby TSANG 350.1.13.10 ity of [facility] 4.2.7.2.[place] [id number] [place] [address] [place] 2022-05-28 2022-05-28 Out[facility] [id number] Univers 06:31:00 13:37:00 WISSAM ity of [facility] 2022-05-28 2022-05-28 Hospital BURAK Freeman 1.2.089.208 [id number] Univers 06:31:00 13:37:00 Encounter Hallie CREWSY 350.1.13.10 ity of [facility] 4.2.7.2.686 [place] as [id number] [facility] [address] 2022-05-28 2022-05-28 Transition SRIDHAR Mcneil 1.2.840.114 [id number] Univers 00:00:00 00:00:00 of Care Lilli L EVGA 350.1.13.10 [place] [id number] [facility] [address] [place] 2022-05-23 2022-05-23 Telephone BURAK Freeman 1.2.840.114 [id number] Univers 00:00:00 00:00:00 Wissam KYLE 350.1.13.10 it y of [facility] 4.2.7.2.686 [place] as [id number] [facility] [address] [place] 2022-05-22 2022-05-22 Emergency X [facility] ERT [id number] Univers 10:49:00 15:18:00 MARY itblaire [facility] 2022-05-22 2022-05-22 Emergency [facility] 1.2.840.114 [id number] Univers 10:49:00 15:18:00 Mary TSANG 350.1.13.10 ity of [place] [id number] [facility] [address] [place] 2022-05-22 2022-05-22 Telephone [facility] 1.2.840.114 [id number] Univers 00:00:00 00:00:00 Kim TSANG 350.1.13.10 ity of [place] [id number] Sd dical NAL 231 [facility] 2022-05-21 2022-05-21 [facility] [id number] Univers 10:00:00 10:00:00 ERNIE [facility] 2022-05-20 2022-05-20 Outpatient [facility] [id number] Univers 15:40:00 15:40:00 ERNIE [facility] 2022-05-20 2022-05-20 Emergency [facility] 1.2.571.636 [id number] Univers 12:02:00 13:33:00 Doris TSANG 350.1.13.10 ity of [facility] 4.2.7.2.[place] [id number] [facility] [address] [place] 2022-05-20 2022-05-20 Office [facility] 1.2.840.114 [id number] Univers 09:30:00 09:30:00 Visit Prudence TSANG 350.1.13.10 ity of [facility] 4.2.7.2.[place] [id number] Sd dical NAL 188 [facility] 2022-05-20 2022-05-20 Outpatient R VICKI, [facility] ERT [id number] Univers 09:30:00 09:08:19 PRUDENCE garyblaire o f [facility] 2022-05-20 2022-05-20 Telephone [facility]EL[facility] 1.2.140.388 [id number] Univers 00:00:00 00:00:00 David JairoTejNoreenTej STEPHENSTON 350.1.13.10 ity of [place] 4.2.[place].2.[place] [id number] Sd dical NAL 059 [facility] 2022-05-20 2022-05-20 Telephone [facility] 1.2.840.114 [id number] Univers 00:00:00 00:00:00 Sunshine TSANG 350.1.13.10 ity of [place] 4.2.7.2.[place] [id number] Sd dical NAL 085 [facility] 2022-05-19 2022-05-19 Outpatient R BROOKS BARKER [facility] [id number] Univers 13:30:00 14:40:01 BROOKS BRAKERy [facility] 2022-05-19 2022-05-19 Office [facility] 1.2.840.114 [id number] [facility] Univers 13:30:00 14:40:01 Visit Brooks TSANG 350.1.13.10 ity of [facility] 4.2.7.2.[place] [id number] Sd dical NAL 044 [facility] 2022-05-16 2022-05-16 Outpatient R ROBERT [facility] [id number] Univers 08:15:00 08:15:00 KIM mejias [facility] 2022-05-16 2022-05-16 Transition SRIDHAR Mata 1.2.840.114 [id number] Univers 00:00:00 00:00:00 of Eusebio [place]GA 350.1.13.10 it y [place] [id number] [address] 2022-05-11 2022-05-15 [facility] Mornu, Prieto LU 1.2.8 40.114 [id number] Univers 02:38:00 18:44:00 Encounter Hallie Freeman KYLE 350. 1.13.10 ity [facility] daniel [facility] 4.2.7.2.686 [place] [id number] [facility] [address] [place] 2022-05-14 2022-05-14 Outpatient R [facility]ARTOLOME [facility] [id number] Univers 09:40:00 09:40:00 ATANASOV, [facility] ity of [facility] 2022-05-14 2022-05-14 [facility] 1.2.840.114 [id number] Univers 00:00:00 00:00:00 [facility] TSANG 350.1.13.10 ity [facility] 4.2.7.2.686 [facility] [phone] Sd dic[address] 2022-05-12 2022-05-12 Outpatient R [facility]RIZAGABL[facility]CH[facility] [id number] Univers 15:00:00 15:00:00 FRANCESCA ity [facility] 2022-05-10 2022-05-10 Nurse EDMUND Gonzalez 1.2.840.114 [id number] Univers 00:00:00 00:00:00 Triage Alisa Saba KYLE 350.1.13.10 [facility] 4.2.7.2.686 [place] [id number] [facility] [address] 2022-05-09 2022-05-09 Emergency X [facility] ERT [id number] Univers 14:14:00 16:59:00 PIA mejias of [facility] 2022-05-09 2022-05-09 [facility] 1.2.198.930 [id number] Univers 14:14:00 16:59:00 Pia TSANG 350.1.13.10 i ty [facility].2.7.2.686 [facility] [id number] [facility] [address] 2022-05-09 2022-05-09 Emergency X SINGER [facility] ERT [id number] Univers 14:14:00 16:59:00 PIA mejias [facility] 2022-05-09 2022-05-09 Outpatient R BROOKS BARKER [facility] [id number] Univers 13:30:00 14:01:50 BROOKS BARKER [facility] 2022-05-09 2022-05-09 Office Mj [facility] 1.2.840.114 [id number] Univers 13:30:00 14:01:50 Visit Joiedonnieveronique LENORE 350.1.13.10 ity of [place].2.7.2.[place] [id number] Sd dical NAL 044 [facility] 2022-05-07 2022-05-07 Transition SRIDHAR Mata 1.2.840.114 [id number] Univers 00:00:00 00:00:00 of Eusebio [place] 350.1.13.10 it y [place] [id number] [facility] [address] 2022-05-05 2022-05-06 Outpatient X [facility] DIONISIO [id number] Univers 14:17:00 11:24:00 CRISS randell [facility] 2022-05-05 2022-05-06 Emergency Maynor Tomas Emily [facility] 1.2.840 .114 [id number] Univers 14:17:00 11:24:00 Criss Leyva 350.1.13.10 ity of [facility] 4.2.7.2.686 [place] [id number] [facility] [address] 2022-05-03 2022-05-03 Refill Mj [facility] 1.2.840.114 [id number] Univers 00:00:00 00:00:00 Alexveronique LENORE 350.1.13.10 ity of [place] 4.2.7.2.[place] [id number] Sd dical NAL [address] BUILDING 2022-05-01 2022-05-01 Transition SIRDHAR Seth 1.2.840.114 [id number] Univers 00:00:00 00:00:00 of Care Page Cespedes SILVIA 350.1.13.10 it y of [place] [id number] [facility] [address] [place] 2022-04-29 2022-04-30 Outpatient X ISELA [facility] DIONISIO [id number] Univers 10:27:00 11:35:00 BJ mejias [facility] 2022-04-29 2022-04-30 Emergency Denis Knox [facility] 1.2.840 .114 [id number] Univers 10:27:00 11:35:00 Bj Weiss 350.1.13.10 ity of [facility] 4.2.7.2.686 [place] [id number] [facility] [address] [place] 2022-04-28 2022-04-28 Outpatient [facility] [id number] Univers 13:00:00 14:02:49 KIM mejias [facility] 2022-04-28 2022-04-28 Office [facility] 1.2.840.114 [id number] Univers 13:00:00 14:02:49 Visit Kim TSANG 350.1.13.10 ity of [facility] 4.2.7.2.[place] [id number] [address] 2022-04-24 2022-04-24 Transition SRIDHAR Sousa 1.2.840.114 [id number] Univers 00:00:00 00:00:00 of Care Erica Choudhary SILVIA 350.1.13.10 i ty of [place]2.[place].2.[place] [id number] [address] 2022-04-22 2022-04-23 Outpatient X AUTUMN [facility] DIONISIO [id number] Univers 08:43:00 11:50:00 CRISS mejias [facility] 2022-04-22 2022-04-23 Emergency Pia Watts [facility] 1.2.840. 114 [id number] Univers 08:43:00 11:50:00 Criss Leyva 350.1.13.10 ity of [facility] 4.2.7.2.686 [facility] [id number] [address] 2022-04-17 2022-04-17 Emergency X SINGER [facility] ERT [id number] Univers 07:23:00 08:09:00 PIA mejias [facility] 2022-04-17 2022-04-17 Emergency [facility] 1.2.029.496 [id number] Univers 07:23:00 08:09:00 Pia TSANG 350.1.13.10 i ty of [place] 4.2.7.2.686 [facility] [id number] [address] 2022-04-16 2022-04-16 Outpatient Paul MONTALVO [facility] [id number] Univers 14:00:00 14:00:00 [facility] 2022-04-15 2022-04-15 Emergency [facility] [id number] Univers 13:39:00 16:22:00 JOSEPH [facility] 2022-04-15 2022-04-15 Emergency [facility] 1.2.840.114 [id number] Univers 13:39:00 16:22:00 Joseph TSANG 350.1.13.10 i ty of [place] 4.2.7.2.686 [facility] [id number] [address] 2022-04-09 2022-04-09 Outpatient Paul MONTALVO [facility] [id number] Univers 16:00:00 16:00:00 [facility] 2022-04-09 2022-04-09 Orders Doctor SHAFFER 1.2.840.114 [id number] Univers 00:00:00 00:00:00 Only Unassigned, KYLE 350.1.13.10 ity of [facility] 4.2.7.2.686 [facility] [id number] [place] [address] [place] 2022-04-03 2022-04-03 Transition SRIDHAR Seth 1.2.840.114 [id number] Univers 00:00:00 00:00:00 of Eusebio VEGA 350.1.13.10 it [place] [id number] [facility] [address] 2022-03-28 2022-04-02 Inpatient X MURALI [facility] [id number] Univers 19:05:00 15:00:00 TONYA ity [facility] 2022-03-28 2022-04-02 [facility] Matibari Karine Darian [facility] 1.2.8 40.114 [id number] Univers 19:05:00 15:00:00 Encounter [facility] 350.1.13.10 ity of Fran [place] 4.2.7.2.686 [facility] [id number] [address] ([facility]) 2022-03-28 2022-04-02 Inpatient X MURALI [facility] DIONISIO [id number] Univers 19:05:00 15:00:00 TONYA ity [facility] 2022-04-01 2022-04-01 Outpatient R WILBERTO, [facility] [id number] Univers 14:00:00 14:00:00 SENDIL ity [facility] 2022-04-01 2022-04-01 Outpatient [facility] [id number] Univers 14:00:00 14:00:00 SENDIL ity [facility] 2022-04-01 2022-04-01 Outpatient [facility] [id number] Univers 14:00:00 14:00:00 SENDIL ity [facility] 2022-03-28 2022-03-28 Nurse EDMUND Dumas 1.2.840.114 [id number] Univers 00:00:00 00:00:00 Triage Adilene KYLE 350.1.13.10 it y of HOSPITAL 4.2.7.2.686 [place] [id number] [facility] [address] [place] 2022-03-27 2022-03-27 Telephone Sherburne, SUSAN 1.2.840.114 [id number] Univers 00:00:00 00:00:00 Nephrology Y HEALTH 350.1.13.10 ity of CL[place]ICS 4.2.7.2.[place] [id number] [facility] [address] 2022-03-26 2022-03-26 Outpatient R BROOKS BARKER [facility] [id number] Univers 14:30:00 14:56:45 BROOKS BARKER ity [facility] 2022-03-26 2022-03-26 Office Mj [facility] 1.2.840.114 [id number] Univers 14:30:00 14:56:45 Visit Brooks TSANG 350.1.13.10 ity of [place] 4.2.7.2.686 [place] [id number] Sd dical NAL 044 [facility] 2022-03-26 2022-03-26 Outpatient R BROOKS BARKER [facility] [id number] Univers 14:30:00 14:56:45 BROOKS BARKER ity [facility] 2022-03-20 2022-03-20 Transition SRIDHAR Seth 1.2.840.114 [id number] Univers 00:00:00 00:00:00 of Care Page [place] 350.1.13.10 it y of [place].2.686 [place] [id number] [facility] [address] 2022-03-20 2022-03-20 Telephone Robert [facility] 1.2.840.114 [id number] Univers 00:00:00 00:00:00 Kim TSANG 350.1.13.10 ity of [facility] 4.2.7.2.686 [place] [id number] Sd dical NAL [address] BUILDING 2022-03-17 2022-03-19 Hospital Asad Armendariz [facility] 1.2.840.11 [id number] Univers 13:52:00 10:30:00 Encounter Bj Weiss 350.1.13.10 ity of [facility] 4.2.7.2.686 [place] [id number] [facility] [address] 2022-03-17 2022-03-17 Outpatient R BROOKS BARKER [facility] [id number] Univers 13:30:00 14:00:48 BROOKS BARKER [facility] 2022-03-17 2022-03-17 Outpatient R BROOKS BARKER [facility] [id number] Univers 13:30:00 14:00:48 BROOKS BARKER [facility] 2022-03-17 2022-03-17 Office Mj [facility] 1.2.840.114 [id number] Univers 13:30:00 14:00:48 Visit Brooks TSANG 350.1.13.10 ity of [place] 4.2.7.2.686 Glenn ANGELESSIO [id number] [address] 2022-03-17 2022-03-17 Outpatient R BROOKS BARKER [facility] [id number] Univers 13:30:00 14:00:48 BROOKS BARKER [facility] 2022-03-17 2022-03-17 Outpatient R BROOKS BARKER [facility] [id number] Univers 13:30:00 14:00:48 BROOKS BARKER [facility] 2022-03-17 2022-03-17 Outpatient R BROOKS BARKER [facility] [id number] Univers 13:30:00 14:00:48 BROOKS BARKER [facility] 2022-03-12 2022-03-12 Orders Doctor EDMUND 1.2.840.114 [id number] Univers 00:00:00 00:00:00 Only Unassigned, KYLE 350.1.13.10 ity of [facility] 4.2.7.2.686 [place] as [id number] [address] 2022-03-11 2022-03-11 Measuring Machine Tender 1, [facility] Sleep Lab Bed [facility] 1. 2.840.114 [id number] Univers 20:00:00 22:30:00 Visit Sunshine Klein 350.1.13. 10 ity of [place] 4.2.7.2.686 [place] [facility] [id number] [facility] [address] 2022-03-11 2022-03-11 Outpatient R BARTOLOME [facility] [id number] Univers 20:00:00 20:00:00 ATANATALIE ARZOLADCL ity [facility] 2022-03-11 2022-03-11 Outpatient R BARTOLOME [facility] [id number] Univers 20:00:00 20:00:00 BARTOLOME [facility] ity [facility] 2022-03-10 2022-03-10 Laboratory Only, Adc Test [facility] 1.2.840. 114 [id number] Univers 14:45:00 15:00:00 Only Rebecca Palmer 350.1.13.10 ity of [place] 4.2.7.2.686 [place] [facility] [id number] [facility] [address] 2022-03-10 2022-03-10 Outpatient R ESTELA [facility] [id number] Univers 14:45:00 14:45:00 REBECCA ity [facility] 2022-03-10 2022-03-10 Outpatient R [facility] [id number] Univers 11:00:00 11:00:00 ity [facility] 2022-03-10 2022-03-10 Transition SRIDHAR Seth 1.2.840.114 [id number] Univers 00:00:00 00:00:00 of Eusebio VEGA 350.1.13.10 it y of [place].2.[place] [id number] [facility] [address] 2022-03-05 2022-03-07 Outpatient X ISELA [facility] DIONISIO [id number] Univers 12:15:00 13:33:00 BJ ity [facility] 2022-03-05 2022-03-07 Emergency Homer Wharton [facility] 1.2.840. 114 [id number] Univers 12:15:00 13:33:00 Bj Weiss 350.1.13.10 ity of [place] 4.2.7.2.686 [facility] [id number] [address] 2022-03-05 2022-03-07 Outpatient X ISELA, [facility] DIONISIO [id number] Univers 12:15:00 13:33:00 BJ [facility] 2022-03-05 2022-03-05 Outpatient R BROOKS BARKER [facility] [id number] Univers 14:00:00 14:00:00 MJ JOIEDonnieVeronique [facility] 2022-03-05 2022-03-05 Emergency X AUNDREAR, [facility] ERT [id number] Univers 12:15:00 12:15:00 AMBICA [facility] 2022-03-05 2022-03-05 Outpatient X OVELENITA, [facility] DIONISIO [id number] Univers 12:15:00 12:15:[facility]22-03-05 Outpatient X OVELENITA, [facility] DIONISIO [id number] Univers 12:15:00 12:15:[facility] 2022-03-05 Outpatient X OVELENITA, [facility] DIONISIO [id number] Univers 12:15:00 12:15:00 [facility]22-03-05 [facility] 1.2.840.114 [id number] Univers 00:00:00 00:00:00 Outreach Nikole TSANG 350.1.13.10 ity [facility] [place].[address] [place] [address] [facility] [id number] [address] 2022-03-05 2022-03-05 [facility] 1.2.840.114 [id number] Univers 00:00:00 00:00:00 Outreach Nikole TSANG 350.1.13.10 it[place] [facility] [id number] [id number] [address] 2022-03-05 2022-03-05 [facility] [place] 1.2.840.114 [id number] Univers 00:00:00 00:00:00 Outreach Nikole Saba [place] 350.1.13.10 [place] [id number] [address] 2022-03-05 2022-03-[address] [facility] 1.2.840.[id number] [place] [address] 00:00:00 00:00:00 Outreach Nikole Saba [place] 350.1.13.10 [place] [id number] [address] 2022-03-04 2022-03-[address] [facility] 1.2.840.114 [id number] Univers 13:00:00 13:57:47 Visit Kim TSANG 350.1.13.10 [facility] [id number] PROFESSIO [id number] [address] 2022-03-04 2022-03-04 [facility] [id number] Univers 13:00:00 13:57:47 KIM mejias [facility] 2022-03-04 2022-03-[address] [facility] 1.2.840.114 [id number] Univers 13:00:00 13:57:47 Visit Kim TSANG 350.1.13.10 ity of [place] [id number] [address] 2022-03-04 2022-03-04 [id number] Univers 13:00:00 13:57:47 KIM mejias [facility] 2022-03-04 2022-03-[address] [facility] 1.2.840.114 [id number] Univers 13:00:00 13:57:47 Visit Kim TSANG 350.1.13.10 ity [facility] [place] [id number] [address] 2022-03-04 2022-03-04 Outpatient R JONES, [facility] [id number] Univers 13:00:00 13:57:47 KIM mejias [facility] 2022-03-04 2022-03-04 Outpatient R ROBERT [facility] [id number] Univers 13:00:00 13:00:00 KIM mejias [facility] 2022-03-02 2022-03-02 Rolyl Queen [facility] 1.2.840.114 [id number] Univers 00:00:00 00:00:00 Elizabet PRIMARY 350.1.13.10 it y [facility] 4.2.7.2.686 [facility] [id number] Sd dical [address] 2022-02-28 2022-02-28 Orders Doctor EDMUND 1.2.840.114 [id number] Univers 00:00:00 00:00:00 Only Unassigned, KYLE 350.1.13.10 ity of [facility] 4.2.7.2.686 [place] [id number] [facility] [address] 2022-02-27 2022-02-27 Emergency [facility] [id number] Univers 14:47:00 16:52:00 MARY randell [facility] 2022-02-27 2022-02-27 Emergency [facility] 1.2.840.114 [id number] Univers 14:47:00 16:52:00 Mary TSANG 350.1.13.10 ity [facility] 4.2.7.2.686 [facility] [id number] [facility] [address] 2022-02-27 2022-02-27 Emergency X [facility] [id number] Univers 14:47:00 16:52:00 MARY mejias [facility] 2022-02-27 2022-02-27 Emergency X [facility] [id number] Univers 14:47:00 16:52:00 MARY ity [facility] 2022-02-27 2022-02-27 Emergency X [facility] [id number] Univers 14:47:00 16:52:00 MARY ity [facility] 2022-02-27 2022-02-27 Telephone [facility] 1.2.390.640 [id number] Univers 00:00:00 00:00:00 Sendil Nate TSANG 350.1.13.10 it[place] [id number] [address] 2022-02-27 2022-02-27 Telephone [facility] 1.2.927.324 [id number] Univers 00:00:00 00:00:00 Sendil Nate TSANG 350.1.13.10 ity of [place] [id number] [address] 2022-02-27 2022-02-27 [facility] 1.2.840.11 4 [id number] Univers 00:00:00 00:00:00 [facility] 350.1.13.10 ity of [facility] 4.2.7.2.[place] [id number] [address] 2022-02-26 2022-02-26 Outpatient R WILBERTO [facility] [id number] Univers 09:30:00 10:04:13 [facility] 2022-02-26 2022-02-26 Office [facility] 1.2.840.114 [id number] Univers 09:30:00 10:04:13 Visit Senddane TSANG 350.1.13.10 ity of [place] [id number] [address] 2022-02-26 2022-02-26 Outpatient R WILBERTO [facility] [id number] Univers 09:30:00 10:04:13 SENDIL ity [facility] 2022-02-26 2022-02-26 Outpatient R WILBERTO [facility] [id number] Univers 09:30:00 10:04:13 SENDIL ity [facility] 2022-02-26 2022-02-26 Outpatient R WILBERTO [facility] [id number] Univers 08:30:00 08:30:00 SENDIL ity of [facility] 2022-02-26 2022-02-26 Outpatient R WILBERTO [facility] [id number] Univers 08:30:00 08:30:00 SENDIL ity of [facility] 2022-02-26 2022-02-26 Telephone [facility] 1.2.840.11 4 [id number] Univers 00:00:00 00:00:00 OstranderZodio [facility] 350.1.13.10 ity of [facility] 4.2.7.2.[place] [id number] [facility] [address] 2022-02-25 2022-02-25 Outpatient R [facility] [id number] Univers 00:00:00 00:00:00 ity of [facility] 2022-02-25 2022-02-25 Outpatient R [facility] [id number] Univers 00:00:00 00:00:00 ity of [facility] 2022-02-25 2022-02-25 Orders Doctor EDMUND 1.2.840.114 [id number] Univers 00:00:00 00:00:00 Only Unassigned, KYLE 350.1.13.10 ity of [facility] 4.2.7.2.686 [place] as [id number] [facility] [address] 2022-02-24 2022-02-24 Emergency [facility] 1.2.218.039 [id number] Univers 17:06:00 19:41:00 Pia TSANG 350.1.13.10 i ty of [place] 4.2.[place].2.[place] [id number] [facility] [address] 2022-02-24 2022-02-24 Outpatient R BROOKS BARKER [facility] [id number] Univers 16:30:00 16:49:48 BROOKS BARKER ity of [facility] 2022-02-24 2022-02-24 Outpatient R BROOKS BARKER [facility] [id number] Univers 16:30:00 16:49:48 BROOKS BARKER [facility] 2022-02-24 2022-02-24 Office Mj [facility] 1.2.840.114 [id number] Univers 16:30:00 16:49:48 Visit Brooks [place] 350.1.13.10 ity of [place] 4.[place] [id number] [address] 2022-02-24 2022-02-24 Outpatient R JOIE BARKERARIS [facility] ERT [id number] Univers 16:30:00 16:49:48 BROOKS BARKER [facility] 2022-02-24 2022-02-24 Outpatient R JOIE BARKERARIS [facility] [id number] Univers 16:30:00 16:49:48 [facility] 2022-02-24 2022-02-24 Outpatient R JOIE BARKERARIS [facility] ERT [id number] Univers 16:30:00 16:49:48 BROOKS BARKER [facility] 2022-02-20 2022-02-20 Telephone Iturrizaga- UN[facility]ERSIT 1.2.840.11 4 [id number] Univers 00:00:00 00:00:00 Blaire Ma HEALTH 350.1.13.10 ity of [facility] [place]2.[place].2.[place] [id number] [address] 2022-02-20 2022-02-20 Telephone Iturrizaga- [facility] 1.2.840.11 4 [id number] Univers 00:00:00 00:00:00 Ostrander, Y HEALTH 350.1.13.10 ity of [facility] 4[place]2.7.2.[place] [id number] [address] 2022-02-20 2022-02-20 Telephone Iturrizaga- [facility] 1.2.840.11 4 [id number] Univers 00:00:00 00:00:00 Francesca, Y HEALTH 350.1.13.10 ity of [facility] [place].2.7.2.[place] [id number] [facility] [address] 2022-02-19 2022-02-19 Transition SRIDHAR Seth 1.2.840.114 [id number] Univers 00:00:00 00:00:00 of Care Page RMY 350.1.13.10 it y of [place] [id number] [facility] [address] 2022-02-19 2022-02-19 Telephone [facility] 1.2.691.892 [id number] Univers 00:00:00 00:00:00 David TSANG 350.1.13.10 ity of [place] [id number] Sd dical NAL 059 [facility] 2022-02-19 2022-02-19 Telephone [facility] 1.2.840.114 9 [id number] Univers 00:00:00 00:00:00 Kim TSANG 350.1.13.10 it[place] of [place] [id number] Sd dical NAL 044 [facility] 2022-02-19 2022-02-19 Orders Doctor EDMUND 1.2.840.114 [id number] Univers 00:00:00 00:00:00 Only Unassigned, KYLE 350.1.13.10 ity of [place] [facility] 4.2.7.2.686 [place] as [id number] [facility] [address] 2022-02-19 2022-02-19 Telephone [facility] 1.2.729.366 [id number] Univers 00:00:00 00:00:00 David TSANG 350.1.13.10 ity of [place] [id number] Sd dical NAL 059 [facility] 2022-02-14 2022-02-18 Inpatient U YARI [facility] [id number] Univers 20:36:00 13:15:00 [facility] 2022-02-14 2022-02-18 [facility] Khanh Soliz 1.2.8 40.114 [id number] Univers 20:36:00 13:15:00 Encounter [facility] 350. 1.13.10 ity [facility] 4.2.7.2.686 [place] [id number] [facility] [address] 2022-02-14 2022-02-18 Inpatient U [facility] [id number] Univers 20:36:00 13:15:00 [facility] 2022-02-14 2022-02-18 Inpatient U [facility] [id number] Univers 20:36:00 13:15:00 [facility] 2022-02-18 2022-02-18 Telephone riaz, [facility] 1.2.840.114 9 [id number] Univers 00:00:00 00:00:00 [facility] 350.1.13.10 i ty of [facility] [place].2.7.2.[place] [id number] [facility] [address] 2022-02-17 2022-02-17 [facility] [id number] Univers 11:00:00 11:00:00 [facility] 2022-02-17 2022-02-17 Telephone Jose Manuel [facility] 1.2.840.114 9 [id number] Univers 00:00:00 00:00:00 [facility] 350.1.13.10 i ty of [facility] 4.2.7.2.[place] [id number] [facility] [address] 2022-02-11 2022-02-11 Outpatient Paul JONES [facility] [id number] Univers 14:00:00 14:00:00 [facility] 2022-02-11 2022-02-11 [facility] [id number] Univers 14:00:00 14:00:00 [facility] 2022-02-11 2022-02-11 Outpatient R ROBERT [facility] [id number] Univers 14:00:00 14:00:00 KIMMILAGROS mejias [facility] 2022-02-11 2022-02-11 Outpatient R ROBERT [facility] [id number] Univers 14:00:00 14:00:00 [facility] 2022-02-11 2022-02-11 Outpatient R ROBERT [facility] [id number] [id number] Univers 14:00:00 14:00:00 KIM [facility] 2022-02-11 2022-02-11 Outpatient R ROBERT [facility] [id number] Univers 14:00:00 14:00:[facility] 2022-02-11 Outpatient R ROBERT [facility] [id number] Univers 14:00:00 14:00:00 [facility] 2022-02-11 2022-02-11 Outpatient R ROBERT [facility] [id number] Univers 14:00:00 14:00:00 [facility] 2022-02-11 2022-02-11 Outpatient R ROBERT [facility] [id number] Univers 14:00:00 14:00:00 KIM [facility] 2022-02-11 2022-02-11 Outpatient R ROBERT [facility] [id number] Univers 14:00:00 14:00:00 KIM [facility] 2022-02-11 2022-02-11 Outpatient R ROBERT [facility] [id number] Univers 14:00:00 14:00:00 [facility] 2022-02-11 2022-02-11 Outpatient R ROBERT [facility] [id number] Univers 14:00:00 14:00:00 [facility] 2022-02-11 2022-02-11 Outpatient R ROBERT [facility] [id number] Univers 14:00:00 14:00:00 KIMMILAGROS mejias [facility] 2022-02-11 2022-02-11 Outpatient Paul JONES [facility] [id number] Univers 14:00:00 14:00:00 KIM mejias [facility] 2022-02-11 2022-02-11 Outpatient Paul JONES [facility] [id number] Univers 14:00:00 14:00:00 [facility] 2022-02-10 2022-02-10 Reftrini [facility] 1.2.840.114 [id number] Univers 00:00:00 00:00:00 David TSANG 350.1.13.10 [facility] 4.2.7.2.686 [facility] [id number] Sd dic[address] 2022-02-08 2022-02-08 Emergency X [facility] [id number] Univers 11:46:00 13:44:00 [facility] 2022-02-08 2022-02-08 Emergency [facility] 1.2.840.114 [id number] Univers 11:46:00 13:44:00 Mary TSANG 350.1.13.10 [facility] 4.2.7.2.686 [facility] [id number] [facility] [address] 2022-02-08 2022-02-08 Emergency X [facility] [id number] Univers 11:46:00 13:44:00 MARY [facility] 2022-02-06 2022-02-06 Orders Doctor SHAFFER 1.2.840.114 [id number] Univers 00:00:00 00:00:00 Only Unassigned, KYLE 350.1.13.10 ity of [facility] 4.2.7.2.686 [facility] [id number] [facility] [address] 2022-02-05 2022-02-05 Outpatient [facility] [id number] Univers 09:30:00 09:56:26 [facility] 2022-02-05 2022-02-05 Nurse Visit, Scotty Nurse [facility] 1.2.840.1 14 [id number] Univers 09:30:00 09:56:26 Visit David Ladd 350.1.13. 10 ity of [facility] 4.2.7.2.[place] [id number] Sd dicri NAL [address] [address] 2022-02-05 2022-02-05 [facility] [id number] Univers 09:30:00 09:56:26 SENDIL ity [facility] 2022-02-05 2022-02-05 Telephone Wilberto [facility] 1.2.079.656 [id number] Univers 00:00:00 00:00:00 David TSANG 350.1.13.10 ity of [facility] 4.2.7.2.[place] [id number] [address] 2022-02-05 2022-02-05 Transition SRIDHAR Seth 1.2.840.114 [id number] Univers 00:00:00 00:00:00 of Care Page VE[place] 350.1.13.10 [place] [id number] [address] 2022-02-04 2022-02-04 Outpatient R [facility] [id number] Univers 15:00:00 15:00:00 ity [facility] 2022-02-04 2022-02-04 Outpatient R [facility] [id number] Univers 15:00:00 15:00:00 ity [facility] 2022-02-02 2022-02-03 Outpatient X AUTUMN [facility] DIONISIO [id number] Univers 12:47:00 18:00:00 CRISS blaire [facility] 2022-02-02 2022-02-03 Emergency Mac Miranda [facility] 1.2.840. 114 [id number] Univers 12:47:00 18:00:00 Criss Leyva 350.1.13.10 ity of [facility] 4.2.7.2.[place] [id number] [facility] [address] 2022-02-02 2022-02-03 Outpatient X AUTUMN [facility] DIONISIO [id number] Univers 12:47:00 18:00:00 CRISS [facility] 2022-02-02 2022-02-02 Nurse EDMUND Gonsalves 1.2.840.114 [id number] Univers 00:00:00 00:00:00 Triage Radha WRIGHT 350.1.13.10 ity of [facility] 4.2.7.2.686 [place] [id number] [facility] [address] 2022-01-28 2022-01-28 Outpatient R WILBERTO [facility] [id number] Univers 08:30:00 08:30:00 SENDIL ity [facility] 2022-01-28 2022-01-28 Out[facility] [id number] Univers 08:30:00 08:30:00 SENDIL ity [facility] 2022-01-28 2022-01-28 Outpatient [facility] [id number] Univers 08:30:00 08:30:00 SENDIL ity [facility] 2022-01-28 2022-01-28 Outpatient R WILBERTO [facility] [id number] Univers 08:30:00 08:30:00 SENDIL ity [facility] 2022-01-28 2022-01-28 Outpatient [facility] [id number] Univers 08:30:00 08:30:00 SENDIL ity [facility] 2022-01-28 2022-01-28 Outpatient R WILBERTO [facility] [id number] Univers 08:30:00 08:30:00 [facility] 2022-01-28 2022-01-28 Office [facility] 1.2.840.114 [id number] Univers 08:30:00 08:30:00 Visit Sendil Nate TSANG 350.1.13.10 ity [facility] 4.2.7.2.686 [facility] [id number] Sd dical [facility] 059 [facility] 2022-01-28 2022-01-28 Outpatient R WILBERTO [facility] [id number] Univers 08:30:00 08:25:30 SENDIL ity of [facility] 2022-01-24 2022-01-24 Transition SRIDHAR S[place] 1.2.840.114 [id number] Univers 00:00:00 00:00:00 of Care Erica [place] 350.1.13.10 i ty of [place].2.[place].2.[place] [id number] [facility] [address] 2022-01-24 2022-01-24 Orders Doctor EDMUND 1.2.840.114 [id number] Univers 00:00:00 00:00:00 Only Unassigned, KYLE 350.1.13.10 ity of [facility] 4.2.7.2.686 [place] as [id number] [facility] [address] 2022-01-21 2022-01-23 Outpatient [facility] DION[facility] [id number] Univers 09:05:00 19:12:00 BJ ity [facility] 2022-01-21 2022-01-23 Emergency Pia Watts [facility] 1.2.840. 114 [id number] Univers 09:05:00 19:12:00 Bj Weiss 350.1.13.10 ity of [place] [id number] [facility] [address] 2022-01-21 2022-01-23 Outpatient X [facility] DIONISIO [id number] Univers 09:05:00 19:12:00 BJ ity [facility] 2022-01-21 2022-01-21 Outpatient X [facility] DIONISIO [id number] Univers 09:05:00 09:05:00 BJ ity [facility] 2022-03-19 2022-01-17 Emergency X [facility] [id number] Univers 14:51:36 12:51:00 ity of [facility] 2022-01-23 2022-01-17 Emergency X [facility] [id number] Univers 16:14:13 12:51:00 ity of [facility] 2022-01-17 2022-01-17 Emergency X [facility] [id number] Univers 12:50:40 12:51:00 ity [facility] 2022-01-16 2022-01-16 Orders Doctor EDMUND 1.2.840.114 [id number] Univers 00:00:00 00:00:00 Only Unassigned, KYLE 350.1.13.10 ity of [facility] 4.2.7.2.686 [place] [id number] [place] [address] [address] 2022-01-15 2022-01-15 Out[facility] [id number] Univers 09:40:00 09:40:[address] [facility] [address] 2022-01-15 2022-01-15 Outpatient R [facility]OLOME [facility] [id number] Univers 09:40:00 09:40:00 [facility], [facility] 2022-01-15 2022-01-15 Outpatient R [facility]IRA [facility] [id number] Univers 09:40:00 09:40:00 [facility], [facility] 2022-01-15 2022-01-15 Outpatient R SHARONIRA [facility] [id number] Univers 09:40:00 09:40:[address] [facility] 2022-01-14 2022-01-14 [facility] 1.2.771.833 [id number] Univers 00:00:00 00:00:00 Cornelia TSANG 350.1.13.10 ity [facility] [place].2.7.2.[place] [id number] Sd dical [facility] [address] [facility] 2022-01-09 2022-01-09 Outpatient R ROBERT [facility] [id number] Univers 15:40:00 16:19:06 [facility] 2022-01-09 2022-01-09 Outpatient R ROBERT [facility] [id number] Univers 15:40:00 16:19:06 [facility] 2022-01-09 2022-01-09 [facility] 1.2.840.114 [id number] Univers 15:40:00 16:19:06 Visit Kim TSANG 350.1.13.10 ity of [place] [id number] Sd dical [facility] 231 [facility] 2022-01-09 2022-01-09 [facility] [id number] Univers 15:40:00 15:40:00 [facility] 2022-[facility]-09 2022-01-09 [facility] [id number] Univers 15:40:00 15:40:00 [facility] 2022-01-06 2022-01-06 Refill Jones, [facility] 1.2.840.114 [id number] Univers 00:00:00 00:00:00 Kim TSANG 350.1.13.10 ity of [place].2.[place] [id number] Sd dic[address] 2022-01-04 2022-01-04 Refill [facility] 1.2.840.114 [id number] Univers 00:00:00 00:00:00 David TSANG 350.1.13.10 ity of [place].2.[place] [id number] Sd dical NAL 059 [facility] 2022-01-02 2022-01-02 [facility] [id number] Univers 13:00:00 14:23:02 [facility] 2022-01-02 2022-01-02 [facility] [id number] Univers 13:00:00 14:23:02 [facility] 2022-01-02 2022-01-02 [facility] 1.2.840.114 [id number] Univers 13:00:00 14:23:02 Visit Kim TSANG 350.1.13.10 ity of [facility] 4.2.7.2.[address] [facility] [id number] [address] 2022-01-02 2022-01-02 Outpatient R ROBERT [facility] [id number] Univers 13:00:00 14:23:02 [facility] 2022-01-02 2022-01-02 Outpatient R ROBERT [facility] [id number] Univers 13:00:00 14:23:02 [facility] 2022-01-02 2022-01-02 Outpatient R ROBERT [facility] [id number] Univers 13:00:00 14:23:02 [facility] 2022-01-02 2022-01-02 Outpatient R ROBERT [facility] [id number] Univers 13:00:00 14:23:02 [facility] 2022-01-02 2022-01-02 Transition SRIDHAR Seth 1.2.840.114 [id number] Univers 00:00:00 00:00:00 of Eusebio VE[place] 350.1.13.10 it y of [place] [id number] [facility] [address] 2021-12-31 2022-01-01 Outpatient X ISELA [facility] [id number] Univers 07:01:00 19:25:00 BJ ity [facility] 2021-12-31 2022-01-01 Emergency Mac Miranda [facility] 1.2.840. 114 [id number] Univers 07:01:00 19:25:00 Bj Wiess 350.1.13.10 ity of [facility] 4.2.7.2.[place] [id number] [facility] [address] 2021-12-31 2022-01-01 [facility] [id number] Univers 07:01:00 19:25:00 BJ mejias [facility] 2021-12-31 2022-01-01 Outpatient X ISELA [facility] DIONISIO [id number] Univers 07:01:00 19:25:00 BJ mejias [facility] 2021-12-27 2021-12-27 [id number] Univers 16:00:00 16:38:33 FRANCESCArandell SERRANO [facility] 2021-12-27 2021-12-27 [facility] [id number] Univers 16:00:00 16:38:33 Visit Francesca PEDIATRIC [id number] ity of [facility] [id number] [id number] [facility] PRIMARY 059 [facility] 2021-12-27 2021-12-27 Outpatient R [facility] [id number] Univers 16:00:00 16:38:33 gary MAy of [facility] 2021-12-27 2021-12-27 [id number] Univers 16:00:00 16:38:33 FRANCESCA, ity of [facility] 2021-12-27 2021-12-27 [facility] [id number] Univers 16:00:00 16:38:33 FRANCESCAgaryblaire of [facility] 2021-12-27 2021-12-27 Outpatient R [facility] [id number] Univers 16:00:00 16:38:33 FRANCESCA ity [facility] 2021-12-25 2021-12-25 [facility] [id number] Univers 13:22:11 23:59:00 Encounter Maria E TSANG [id number] ity [facility] [id number] [id number] [facility] [address] 2021-12-25 2021-12-25 Measuring Machine Tender Vira, Scotty [facility] Main [facility] 1.2.8 40.114 [id number] Univers 13:30:00 13:45:00 Visit Maria E FischerJAREN [id number] ity [facility] [id number] [id number] Sd dical NAL 353 [facility] 2021-12-25 2021-12-25 [facility] [place] [id number] Univers 13:30:00 13:30:00 MARIA E randell [facility] 2021-12-25 2021-12-25 [id number] Univers 13:30:00 13:30:00 MARIA E blaire [facility] 2021-12-25 2021-12-25 Outpatient [facility] [id number] Univers 13:30:00 13:30:00 MARIA E blaire [facility] 2021-12-25 2021-12-25 [facility] [id number] Univers 11:00:00 12:25:01 MARIA E [facility] 2021-12-25 2021-12-25 Office [facility] 1.2.840.114 [id number] Univers 11:00:00 12:25:01 Visit aMria E TSANG 350.1.13.10 i ty [facility] [place] [phone] [facility] 044 [facility] 2021-12-25 2021-12-25 Outpatient R [facility] [id number] Univers 11:00:00 12:25:01 MARIA E [facility] 2021-12-25 2021-12-25 Orders Doctor SHAFFER 1.2.840.114 [id number] Univers 00:00:00 00:00:00 Only Unassigned, KYLE 350.1.13.10 ity of [facility] 4.2.7.2.686 Alexander as [phone] [address] 2021-12-24 2021-12-24 Emergency X Jairo JORDAN [facility] ERT [id number] Univers 16:57:00 17:41:00 ity of [facility] 2021-12-24 2021-12-24 Emergency Nikki, K [facility] 1.2.840.114 [id number] Univers 16:57:00 17:41:00 Janny TSANG 350.1.13.10 i ty [facility] 4.2.7.2.686 [facility] [phone] [facility] 084 Branch 2021-12-24 2021-12-24 Emergency X NIKKI, K [facility] ERT [id number] Univers 16:57:00 17:41:00 ity of [facility] 2021-12-24 2021-12-24 Emergency X NIKKI, K [facility] ERT [id number] Univers 16:57:00 17:41:00 ity of [facility] 2021-12-24 2021-12-24 Emergency X NIKKI, K [facility] ERT [id number] Univers 16:57:00 17:41:00 ity of [facility] 2021-12-24 2021-12-24 Emergency X NIKKI, K [facility] ERT [id number] Univers 16:57:00 17:41:00 ity of [facility] 2021-12-24 2021-12-24 Emergency X NIKKI, K [facility] ERT [id number] Univers 16:57:00 17:41:00 ity of [facility] 2021-12-21 2021-12-21 Measuring Machine Tender 1, [facility] Sleep Lab Bed [facility] 1. 2.840.114 [id number] Univers 19:30:00 22:00:00 Visit Sunshine Klein 350.1.13. 10 ity [facility] 4.2.7.2.686 [facility] [id number] [facility] 193 [address] 2021-12-21 2021-12-21 Outpatient R SUNSHINE KLEIN [facility] [id number] Univers 19:30:00 19:30:00 SUNSHINE KLEIN [facility] 2021-12-21 2021-12-21 Outpatient R SUNSHINE KLEIN [facility] [id number] Univers 19:30:00 19:30:00 SUNSHINE KLEIN [facility] 2021-12-21 2021-12-21 Outpatient R NATALIE KLEINDCWandy [facility] [id number] Univers 19:30:00 19:30:00 SUNSHINE KLEIN [facility] 2021-12-21 2021-12-21 Outpatient R NATALIE KLEINDCWandy [facility] [id number] Univers 19:30:00 19:30:00 SUNSHINE KLEIN [facility] 2021-12-21 2021-12-21 Outpatient R NATALIE KLEINDCWandy [facility] [id number] Univers 19:30:00 19:30:00 SUNSHINE KLEIN [facility] 2021-12-21 2021-12-21 Orders Doctor SHAFFER 1.2.840.114 [id number] Univers 00:00:00 00:00:00 Only Unassigned, KYLE 350.1.13.10 ity of [facility] 4.2.7.2.686 [place] [phone] [facility] 009 Branch 2021-12-19 2021-12-19 Laboratory Only, Adc Test [facility] 1.2.840. 114 [id number] Univers 08:00:00 08:15:00 Only Rebecca Palmer 350.1.13.10 ity [facility] 4.2.7.2.686 [place] [facility] [phone] [facility] 353 [address] 2021-12-19 2021-12-19 Outpatient Paul PALMER [facility] [id number] Univers 08:00:00 08:00:00 REBECCA mejias [facility] 2021-12-19 2021-12-19 Outpatient R ESTELA [facility] [id number] Univers 08:00:00 08:00:00 REBECCA mejias [facility] 2021-12-19 2021-12-19 Outpatient Paul PALMER [facility] [id number] Univers 08:00:00 08:00:00 REBECCA [facility] 2021-12-19 2021-12-19 Javy Jones [facility] 1.2.840.114 [id number] Univers 00:00:00 00:00:00 Management Kim TSANG 350.1.13.10 ity of [place].2.[place] [phone] Sd dical NAL 044 [facility] 2021-12-19 2021-12-19 Patient Artemio [facility] 1.2.840.114 [id number] Univers 00:00:00 00:00:00 Outreach Nikole TSANG 350.1.13.10 ity [facility] 4.2.7.2.686 [place] [phone] Sd dical NAL 231 [facility] 2021-12-19 2021-12-19 Orders Doctor EDMUND 1.2.840.114 [id number] Univers 00:00:00 00:00:00 Only Unassigned, KYLE 350.1.13.10 ity of [place] [facility] 4.2.7.2.686 [place] as [phone] [facility] 009 Branch 2021-12-16 2021-12-16 Transition SRIDHAR Seth 1.2.840.114 [id number] Univers 00:00:00 00:00:00 of Care Page VEGA 350.1.13.10 it y of [place].2.7.2.[place] [phone] [facility] 403 [address] 2021-12-16 2021-12-16 Telephone Robert [facility] 1.2.840.114 [id number] Univers 00:00:00 00:00:00 Kim TSANG 350.1.13.10 it[place] of [place].2.[place] [phone] Sd dical NAL 231 [facility] 2021-12-12 2021-12-14 Hospital Mary Reynaga [facility] 1.2.84 0.114 [id number] Univers 09:12:00 15:13:00 Encounter Oh Espinoza 350.1.13.10 ity of Bj Weiss 4.2.7.2.686 [facility] [phone] [facility] 081 Branch 2021-12-11 2021-12-11 Outpatient Paul ZAMORA [facility] [id number] Univers 11:00:00 11:47:39 CORNELIA farmer [facility] 2021-12-11 2021-12-11 Office David Ladd [facility] 1.2.84 0.114 [id number] Univers 11:00:00 11:47:39 Visit Cornelia Zamora 350.1.13.10 ity [facility] 4.2.7.2.[place] [phone] Sd dical [facility] 059 [facility] 2021-12-11 2021-12-11 Outpatient R KIN, [facility] [id number] Univers 11:00:00 11:47:39 CORNELIA gambino [facility] 2021-12-11 2021-12-11 Outpatient R KIN, [facility] [id number] Univers 11:00:00 11:00:00 CORNELIA gambino [facility] 2021-12-10 2021-12-10 Emergency X , [facility] ERT [id number] Univers 10:08:00 14:35:00 PIA bl[facility] 2021-12-10 2021-12-10 Emergency , [facility] 1.2.516.178 [id number] Univers 10:08:00 14:35:00 Pia TSANG 350.1.13.10 i ty [facility] 4.2.7.2.686 [place] [phone] [facility] 084 Branch 2021-12-10 2021-12-10 Emergency X SINGER [facility] ERT [id number] Univers 10:08:00 14:35:00 PIA [facility] 2021-12-10 2021-12-10 Emergency X , [facility] ERT [id number] Univers 10:08:00 14:35:00 PIA [facility] 2021-12-10 2021-12-10 Emergency X , [facility] ERT [id number] Univers 10:08:00 14:35:00 PIA [facility] 2021-12-10 2021-12-10 Emergency X , [facility] ERT [id number] Univers 10:08:00 14:35:00 PIA mejias [facility] 2021-12-10 2021-12-10 Emergency X SINGER [facility] ERT [id number] Univers 10:08:00 14:35:00 PIA mejias [facility] 2021-12-10 2021-12-10 Emergency X SINGER [facility] ERT [id number] Univers 10:08:00 10:08:00 PIA ity [facility] 2021-12-10 2021-12-10 Emergency X SINGER [facility] ERT [id number] Univers 10:08:00 10:08:00 PIA [facility] 2021-12-10 2021-12-10 [facility] 1.2.343.937 [id number] Univers 00:00:00 00:00:00 Cornelia TSANG 350.1.13.10 ity [facility] 4.2.7.2.[place] [phone] [facility] 059 [facility] 2021 2021 Outpatient Paul JONES [facility] [id number] Univers 15:40:00 17:19:00 [facility] 2021 2021 Office [facility] 1.2.840.114 [id number] Univers 15:40:00 17:19:00 Visit Kim TSANG 350.1.13.10 [facility] 4.2.7.2.686 [place] [phone] [facility] 231 [facility] 2021 2021 Outpatient Paul JONES [facility] [id number] Univers 15:40:00 17:19:00 KIM [facility] 2021 2021 Outpatient Paul JONES [facility] [id number] Univers 15:40:00 17:19:00 KIM [facility] 2021 2021 Outpatient Paul JONES [facility] [id number] Univers 15:40:00 17:19:00 KIM obrieny [facility] 2021 2021 Orders Doctor EDMUND 1.2.840.114 [id number] Univers 00:00:00 00:00:00 Only Unassigned, KYLE 350.1.13.10 [facility] 4.2.7.2.686 [place] [phone] [facility] 009 Branch 2021-12-03 2021-12-03 Telephone Wilberto [facility] 1.2.204.838 [id number] Univers 00:00:00 00:00:00 David TSANG 350.1.13.10 ity of [place]2.7.2.[address] [facility] [phone] [facility] 059 [facility] 2021-12-02 2021-12-02 Transition SRIDHAR Seth 1.2.840.114 [id number] Univers 00:00:00 00:00:00 of Eusebio VEGA 350.1.13.10 it y of [place] 4.2.7.2.686 [place] [id number] [facility] 403 [address] 2021-11-29 2021-11-30 Outpatient X AUTUMN [facility] DIONISIO [id number] Univers 15:25:00 12:37:00 CRISS blaire [facility] 2021-11-29 2021-11-30 Emergency Mac Miranda [facility] 1.2.840. 114 [id number] Univers 15:25:00 12:37:00 Criss Leyva 350.1.13.10 ity of [place].2.7.2.686 [place] [id number] [facility] 081 Branch 2021-11-29 2021-11-30 Outpatient X AUTUMN [facility] DIONISIO [id number] Univers 15:25:00 12:37:00 CRISS mejias [facility] 2021-11-29 2021-11-30 Outpatient X AUTUMN [facility] DIONISIO [id number] Univers 15:25:00 12:37:00 CRISS mejias [facility] 2021-11-22 2021-11-22 Transition SRIDHAR [place] 1.2.840.114 [id number] Univers 00:00:00 00:00:00 of Care Yvonne VEGA 350.1.13.10 i ty of [place].2.7.2.686 [place] [phone] [facility] 403 [address] 2021-11-19 2021-11-21 Outpatient X OVILLE, [facility] DIONISIO [id number] Univers 16:24:00 12:26:00 [facility] 2021-11-19 2021-11-21 Emergency Henrique Remy B [facility] 1.2.840 .114 [id number] Univers 16:24:00 12:26:00 Bj WeissJAREN 350.1.13.10 ity [facility] 4.2.7.2.686 [place] [phone] [facility] 080 Branch 2021-11-19 2021-11-21 Outpatient X OVILLE, [facility] DIONISIO [id number] Univers 16:24:00 12:26:00 [facility] 2021-11-19 2021-11-21 Outpatient X OVILLE, [facility] DIONISIO [id number] Univers 16:24:00 12:26:00 [facility] 2021-11-19 2021-11-19 Outpatient X OVILLE, [facility] DIONISIO [id number] Univers 16:24:00 16:24:00 [facility] 2021-11-11 2021-11-11 Outpatient R SUNSHINE KLEIN [facility] [id number] Univers 19:30:00 19:30:00 SUNSHINE KLEIN [facility] 2021-11-08 2021-11-08 Outpatient R [facility] [id number] Univers 12:00:00 12:00:00 [facility] 2021-11-08 2021-11-08 Outpatient R [facility] [id number] Univers 12:00:00 12:00:00 [facility] 2021-11-05 2021-11-05 Outpatient R ROBERT [facility] [id number] Univers 13:00:00 13:54:58 KIM [facility] 2021-11-05 2021-11-05 Outpatient R ROBERT [facility] [id number] Univers 13:00:00 13:54:58 KIMMILAGROS mejias [facility] 2021-11-05 2021-11-05 Office Jones [facility] 1.2.840.114 [id number] Univers 13:00:00 13:54:58 Visit Kim TSANG 350.1.13.10 ity [place]2.[place].2.686 [place] [phone] Sd dic[address] 2021-11-05 2021-11-05 Outpatient R ROBERT [facility] [id number] Univers 13:00:00 13:54:58 KIM garyblaire [facility] 2021-11-05 2021-11-05 [facility] [id number] Univers 13:00:00 13:54:58 KIM [facility] 2021-11-05 2021-11-05 Transition SRIDHAR Seth 1.2.840.114 [id number] Univers 00:00:00 00:00:00 of Eusebio VEGA 350.1.13.10 it y [place]2.7.2.686 [place] [id number] [address] 2021-11-04 2021-11-04 Outpatient [facility] [id number] Univers 13:45:00 13:45:00 ROBERTO [facility] 2021-11-04 2021-11-04 Outpatient Paul STOKES [facility] [id number] Univers 13:45:00 13:45:00 ROBERTO [facility] 2021-11-01 2021-11-04 Inpatient Brynn LEYVA [facility] [id number] Univers 17:38:00 12:55:00 CRISS mejias [facility] 2021-11-01 2021-11-04 [facility] Pia Watts [facility] 1.2.840.1 14 [id number] Univers 17:38:00 12:55:00 Encounter Criss Leyva 350.1.13.10 [facility] 4.2.7.2.686 [facility] [id number] [address] 2021-11-01 2021-11-04 Inpatient X AUTUMN [facility] DIONISIO [id number] Univers 17:38:00 12:55:00 CRISS mejias [facility] 2021-11-01 2021-11-04 Inpatient X AUTUMN [facility] DIONISIO [id number] Univers 17:38:00 12:55:00 CRISS mejias [facility] 2021-11-01 2021-11-04 Inpatient X AUTUMN [facility] DIONISIO [id number] Univers 17:38:00 12:55:00 CRISS mejias [facility] 2021-11-01 2021-11-04 Inpatient X AUTUMN [facility] DIONISIO [id number] Univers 17:38:00 12:55:00 CRISS mejias [facility] 2021-11-01 2021-11-04 Inpatient X AUTUMN [facility] DIONISIO [id number] Univers 17:38:00 12:55:00 CRISS [facility] 2021-10-29 2021-10-29 Outpatient Paul STOKES [facility] [id number] Univers 11:00:00 15:29:17 [facility] 2021-10-29 2021-10-29 Outpatient Paul STOKES [facility] [id number] Univers 11:00:00 15:29:17 [facility] 2021-10-29 2021-10-29 Outpatient Paul STOKES [facility] [id number] Univers 11:00:00 15:29:17 [facility] 2021-10-29 2021-10-29 Outpatient Paul STOKES [facility] [id number] Univers 11:00:00 15:29:17 [facility] 2021-10-29 2021-10-29 Outpatient Paul STOKES [facility] [id number] Univers 11:00:00 15:29:17 [facility] 2021-10-29 2021-10-29 Outpatient Paul STOKES [facility] [id number] Univers 11:00:00 15:29:17 [facility] 2021-10-29 2021-10-29 Outpatient R KIKE [facility] [id number] Univers 11:00:00 11:00:00 ROBERTO mejias [facility] 2021-10-29 2021-10-29 Outpatient R KIKE [facility] [id number] Univers 11:00:00 11:00:00 ROBERTO mejias [facility] 2021-10-28 2021-10-28 Transition SRIDHAR Seth 1.2.840.114 [id number] Univers 00:00:00 00:00:00 of Eusebio VEGA 350.1.13.10 it y [facility] 4.2.7.2.686 [facility] [phone] [facility] 403 [address] 2021-10-24 2021-10-26 Inpatient X JEDELENITA, [facility] DIONISIO [id number] Univers 13:43:00 13:02:00 [facility] 2021-10-24 2021-10-26 [facility] Mac Miranda [facility] 1.2.840.1 14 [id number] Univers 13:43:00 13:02:00 Encounter Kyara Weissamari TSANG 350.1.13.10 ity [place].2.686 [place] [id number] [facility] 081 [address] 2021-10-24 2021-10-26 Inpatient X OVELENITA, [facility] DIONISIO [id number] Univers 13:43:00 13:02:00 [facility] 2021-10-24 2021-10-26 Inpatient X OVILLE, [facility] DIONISIO [id number] Univers 13:43:00 13:02:00 [facility] 2021-10-24 2021-10-26 Inpatient X ISELA, [facility] D[facility] [id number] Univers 13:43:00 13:02:00 [facility] 2021-10-24 2021-10-26 Inpatient X ISELA, [facility] D[facility] [id number] Univers 13:43:00 13:02:00 [facility] 2021-10-24 2021-10-26 Inpatient X OVILLE, [facility] DIONISIO [id number] Univers 13:43:00 13:02:00 BJ [facility] 2021-10-24 2021-10-26 Inpatient X ISELA [facility] [id number] Univers 13:43:00 13:02:00 BJ mejias [facility] 2021-10-24 2021-10-26 Inpatient X ISELA [facility] [id number] Univers 13:43:00 13:02:00 [facility] 2021-10-24 2021-10-24 [facility] [id number] Univers 14:00:00 14:00:00 SENDIL [facility] 2021-10-24 2021-10-24 Telephone [facility] 1.2.840.114 [id number] Univers 00:00:00 00:00:00 Kim TSANG 350.1.13.10 ity [facility] 4.2.7.2.686 [place] [id number] Sd dical NAL 044 [facility] 2021-10-22 2021-10-22 Ancillary Romel Burns [facility] 1.2. 840.114 [id number] Univers 14:30:00 17:20:56 Visit Roberto Stokes 350.1.13.10 ity of [facility] 4.2.7.2.686 [place] [id number] Sd dical NAL 178 [facility] 2021-10-22 2021-10-22 [facility]patient [facility] [id number] Univers 14:30:00 17:20:56 ROBERTO [facility] 2021-10-21 2021-10-21 Transition SRIDHAR Seth 1.2.840.114 [id number] Univers 00:00:00 00:00:00 of Eusebio VEGA 350.1.13.10 it y of [place].2.[place] [id number] [address] 2021-10-18 2021-10-18 [facility] [id number] Univers 15:00:00 15:48:32 KIM [facility] 2021-10-18 2021-10-18 Outpatient R ROBERT [facility] [id number] Univers 15:00:00 15:48:32 [facility] 2021-10-18 2021-10-18 Office Robert [facility] 1.2.840.114 [id number] Univers 15:00:00 15:48:32 Visit Kim TSANG 350.1.13.10 [facility] 4.2.7.2.686 Alexanderorlin de la [place] ESSIO [id number] [address] 2021-10-18 2021-10-18 Outpatient R JONES, [facility] [id number] Univers 15:00:00 15:48:32 [facility] 2021-10-[facility] 2021-10-18 Outpatient R ROBERT [facility] [id number] Univers 15:00:00 15:48:32 [facility] 2021-10-18 2021-10-18 [facility] [id number] Univers 15:00:00 15:48:32 [facility] 2021-10-18 2021-10-18 Outpatient R ROBERT [facility] [id number] Univers 15:00:00 15:48:32 [facility] 2021-10-18 2021-10-18 Outpatient R ROBERT [facility] D[facility] [id number] Univers 15:00:00 15:48:32 [facility] 2021-10-18 2021-10-18 Outpatient R ROBERT [facility] [id number] Univers 15:00:00 15:48:32 [facility] 2021-10-18 2021-10-18 Outpatient R ROBERT [facility] [id number] Univers 15:00:00 15:48:32 [facility] 2021-10-18 2021-10-18 Outpatient R ROBERT [facility] [id number] Univers 15:00:00 15:00:00 KIM ity [facility] 2021-10-18 2021-10-18 Outpatient R ROBERT [facility] [id number] Univers 15:00:00 15:00:00 KIM ity [facility] 2021-10-18 2021-10-18 Outpatient R ROBERT [facility] [id number] Univers 15:00:00 15:00:00 KIM ity [facility] 2021-10-18 2021-10-18 Outpatient R ROBERT [facility] [id number] Univers 15:00:00 15:00:00 [facility] 2021-10-17 2021-10-18 [facility] Debby Joaquin [facility] 1.2.840.11 [id number] Univers 14:34:00 13:05:00 Encounter Bj Weiss [facility].1.13.10 [facility] 4.2.7.2.686 [facility] [id number] [place] [address]291 [place] 2021-10-16 2021-10-16 Outpatient R ATANASOV, STRAHIL [facility] [id number] Univers 11:00:00 11:57:33 ATANASOV, STRAHIL ity [facility] 2021-10-16 2021-10-16 Outpatient R ATANASOV, STRAHIL [facility] [id number] Univers 11:00:00 11:57:33 ATANASOV, STRAHIL ity [facility] 2021-10-16 2021-10-16 Outpatient R ATANASOV, STRAHIL [facility] [id number] Univers 11:00:00 11:57:33 ATANASOV, STRAHIL ity [facility] 2021-10-16 2021-10-16 Office [facility] 1.2.308.901 [id number] Univers 11:00:00 11:20:00 Visit Sunshine TSANG 350.1.13.10 ity [facility] 4.2.7.2.686 [facility] [phone] [address] 2021-10-16 2021-10-16 Outpatient R SUNSHINE KLEIN [facility] [id number] Univers 11:00:00 11:00:00 SUNSHINE KLEIN ity of [facility] 2021-10-14 2021-10-14 Patient SRIDHAR Perez 1.2.840.114 [id number] Univers 00:00:00 00:00:00 Outreach [place] Donnie SILVIA 350.1.13.10 [place] [id number] [facility] 403 [place] 2021-10-10 2021-10-10 Patient SRIDHAR Perez 1.2.840.114 [id number] Univers 00:00:00 00:00:00 Outreach [place] Fields SILVIA 350.1.13.10 [place]2.[place] [id number] [address] 2021-10-09 2021-10-09 Patient Artemio [facility] 1.2.840.114 [id number] Univers 00:00:00 00:00:00 Outreach Nikole TSANG 350.1.13.10 ity of [facility] 4.2.7.2.[place] [id number] Sd dical NAL 231 [facility] 2021-10-09 2021-10-09 Transition ONEAL SethMuriel 1.2.840.114 [id number] Univers 00:00:00 00:00:00 of Care Page VEGA 350.1.13.10 it [place]2.[place] [id number] [facility] 403 [place] 2021-10-09 2021-10-09 Orders Doctor EDMUND 1.2.840.114 [id number] Univers 00:00:00 00:00:00 Only Unassigned, KYLE 350.1.13.10 ity of [place] [facility] 4.2.7.2.686 Alexander as [id number] [facility] 009 [place] 2021-10-06 2021-10-08 Hospital Mary Reynaga [facility] 1.2.84 0.114 [id number] Univers 23:39:00 17:40:00 Encounter John Alonzoambreen TSANG 350.1.13.10 ity of [place] 4.2.7.2.686 [facility] [id number] [address] 2021-10-06 2021-10-08 Inpatient X JORDIN [facility] DIONIS[facility] [id number] Univers 23:39:00 17:40:00 [place] itblaire [facility] 2021-10-06 2021-10-08 Inpatient X JORDIN [facility] [id number] Univers 23:39:00 17:40:00 [place] itblaire [facility] 2021-10-06 2021-10-08 Inpatient X JORDIN [facility] [id number] Univers 23:39:00 17:40:00 [place] mejias [facility] 2021-10-06 2021-10-08 Inpatient X JORDIN [facility] [id number] Univers 23:39:00 17:40:00 [place] [facility] 2021-10-06 2021-10-08 Inpatient X JORDIN [facility] [id number] Univers 23:39:00 17:40:00 [place] [facility] 2021-10-08 2021-10-08 Outpatient R GEOFF ALICIA [facility] [id number] Univers 11:30:00 11:30:00 ALICIA TELLEZ [facility] 2021-10-08 2021-10-08 Outpatient R ALCIIA TELLEZ [facility] [id number] Univers 11:30:00 11:30:00 GEOFF ALICIA [facility] 2021-10-08 2021-10-08 Outpatient R GEOFF ALICIA [facility] [id number] Univers 11:30:00 11:30:00 ALICIA TELLEZ [facility] 2021-10-08 2021-10-08 Outpatient R GEOFF ALICIA [facility] [id number] Univers 11:30:00 11:30:00 [facility] 2021-10-08 2021-10-08 Rolly Ladd [facility] [id number] Univers 00:00:00 00:00:00 Sendil Nate TSANG [id number] [id number] [id number] [facility] 059 [facility] 2021-10-04 2021-10-04 Transition SRIDHAR Seth 1.2.840.114 [id number] Univers 00:00:00 00:00:00 of Care Pagedarwin VEGA 350.1.13.10 it y of [place] [id number] [facility] [address] 2021-10-02 2021-10-03 [facility] Jairo Jordan 1.2.840.1 [id number] Univers 16:53:00 16:58:00 Rafy Walls KYLE 35 0.1.13.10 ity of [facility] 4.2.7.2.686 [place] as [id number] [facility] 098 Branch 2021-10-02 2021-10-03 [facility] KELY [id number] Univers 16:53:00 16:58:00 RAFY ity [facility] 2021-10-02 2021-10-03 Outpatient Veronique [facility] KELY [id number] Univers 16:53:00 16:58:00 RAFY ity [facility] 2021-10-02 2021-10-03 Outpatient U [facility] KELY [id number] Univers 16:53:00 16:58:00 RAFY ity [facility] 2021-10-02 2021-10-03 Outpatient U [facility] KELY [id number] Univers 16:53:00 16:58:00 RAFY ity [facility] 2021-10-02 2021-10-02 Outpatient U [facility] KELY [id number] Univers 16:53:00 16:53:00 RAFY ity [facility] 2021-10-02 2021-10-02 Outpatient R BROOKS BARKER [facility] KELY [id number] Univers 16:00:00 16:50:02 BROOKS BARKERy [facility] 2021-10-02 2021-10-02 Office Mj [facility] 1.2.840.114 [id number] Univers 16:00:00 16:50:02 Visit Brooks LENORE 350.1.13.10 ity of [facility] 4.2.7.2.[place] [id number] Sd dical [address] 2021-10-02 2021-10-02 Outpatient R SHA BARKERBHANU [facility] [id number] Univers 16:00:00 16:50:02 BROOKS BARKER ity [facility] 2021-10-02 2021-10-02 Outpatient R SHA BARKERBHANU [facility] KELY [id number] Univers 16:00:00 16:50:02 [facility] 2021-10-02 2021-10-02 Outpatient R SHA BARKERBHANU [facility] [id number] Univers 16:00:00 16:00:00 [facility] 2021-10-01 2021-10-01 Transition SethSRIDHAR 1.2.840.114 [id number] Univers 00:00:00 00:00:00 of Eusebio Pagedarwin VE[place] 350.1.13.10 it y of [place] [id number] [facility] [address] 2021-09-28 2021-09-29 Outpatient X AUTUMN [facility] DIONISIO [id number] Univers 06:53:00 16:50:00 [facility] 2021-09-28 2021-09-29 Emergency Mary Reynaga [facility] 1.2.8 40.114 [id number] Univers 06:53:00 16:50:00 Criss Leyva 350.1.13.10 ity of [facility] 4.2.7.2.686 [place] [id number] [facility] 081 [address] 2021-09-28 2021-09-29 Outpatient X AUTUMN [facility] DIONISIO [id number] Univers 06:53:00 16:50:00 CRISS ity [facility] 2021-09-24 2021-09-24 Transition SRIDHAR Seth 1.2.840.114 [id number] Univers 00:00:00 00:00:00 of Eusebio [place] 350.1.13.10 it y of [place] 4.2.7.2.686 [place] [id number] [facility] [address] 2021-09-21 2021-09-22 Inpatient X JORDIN [facility] DIONISIO [id number] Univers 07:09:00 13:50:00 [place] ity [facility] 2021-09-21 2021-09-22 [facility] Mac Miranda [facility] 1.2.840.1 [id number] Univers 07:09:00 13:50:00 Oh Sheriff 350.1.13.10 ity [facility] 4.2.7.2.[place] [id number] [facility] 0[address] 2021-09-21 2021-09-22 Inpatient X JORDIN [facility] DIONISIO [id number] Univers 07:09:00 13:50:00 [place] ity [facility] 2021-09-21 2021-09-22 Inpatient X JORDIN [facility] DIONISIO [id number] Univers 07:09:00 13:50:00 [place] ity [facility] 2021-09-21 2021-09-22 Inpatient X JORDIN [facility] DIONISIO [id number] Univers 07:09:00 13:50:00 [place] ity [facility] 2021-09-21 2021-09-22 Inpatient X JORDIN [facility] DIONISIO [id number] Univers 07:09:00 13:50:00 [place] ity [facility] 2021-09-21 2021-09-22 Inpatient X JORDIN [facility] IDONISIO [id number] Univers 07:09:00 13:50:00 [place] ity [facility] 2021-09-21 2021-09-22 Inpatient X JORDIN [facility] DIONISIO [id number] Univers 07:09:00 13:50:00 [place] ity [facility] 2021-09-21 2021-09-22 Inpatient X JORDIN, [facility] DIONISIO [id number] Univers 07:09:00 13:50:00 [place] ity [facility] 2021-09-20 2021-09-20 Hospital Amandaelias BURAK 1.2.840.114 [id number] Univers 06:50:00 15:00:00 Encounter Afaq KYLE 350.1.13.10 ity of [facility] 4.2.7.2.686 [place] as [phone] [facility] [address] [place] 2021-09-20 2021-09-20 Outpatient R SEJAL [facility] CCA [id number] Univers 06:50:00 15:00:00 AFAQ ity [facility] 2021-09-20 2021-09-20 Outpatient R SEJAL [facility] CCA [id number] Univers 06:50:00 15:00:00 [facility] ity [facility] 2021-09-20 2021-09-20 Outpatient R RODNEY, [facility] CCA [id number] Univers 06:39:38 06:49:00 ATTENDING ity of [facility] 2021-09-20 2021-09-20 [facility] Rodney BURAK 1.2.897.285 [id number] Univers 06:39:38 06:49:00 Encounter Attending KYLE 350.1.13.10 ity [facility] 4.2.7.2.686 [place] as [phone] [facility] [address] [place] 2021-09-20 2021-09-20 Outpatient R RODNEY, [facility] DIONISIO [id number] Univers 06:39:38 06:49:00 ATTENDING ity of [facility] 2021-09-20 2021-09-20 Telephone [facility] 1.2.840.114 [id number] Univers 00:00:00 00:00:00 Francesca [facility] 350.1.13.10 ity of Juan [place] 4.2.7.2.686 Glenn [place] [id number] [address] OFFICE BUILDING 2021-09-20 2021-09-20 Telephone Robert [facility] 1.2.840.114 [id number] Univers 00:00:00 00:00:00 Kim TSANG 350.1.13.10 ity of [facility] 4.2.7.2.[place] [id number] Sd dical NAL [address] BUILDING 2021-09-20 2021-09-20 [facility] 1.2.840.114 [id number] Univers 00:00:00 00:00:[address] [facility] 350.1.13.10 ity of [place] 4.2.7.2.686 [place] [id number] [place] [address] Branch OFFICE BUILDING 2021-09-19 2021-09-19 Telephone [facility] 1.2.882.679 [id number] Univers 00:00:00 00:00:00 Cornelia TSANG 350.1.13.10 ity of [place] [id number] [facility] [address] [facility] 2021-09-17 2021-09-17 Out[facility] [id number] Univers 11:20:00 11:20:00 [facility] 2021-09-17 2021-09-17 [facility] [id number] Univers 11:20:00 11:20:00 [facility] 2021-09-17 2021-09-17 Outpatient [facility] [id number] Univers 11:20:00 11:20:00 [facility] 2021-09-17 2021-09-17 Outpatient [facility] [id number] Univers 11:20:00 11:20:00 [facility] 2021-09-17 2021-09-17 Outpatient [facility] [id number] Univers 11:20:00 11:20:00 [facility] 2021-09-16 2021-09-16 Emergency [facility] 1.2.840.114 [id number] Univers 11:54:00 16:20:00 Mary TSANG 350.1.13.10 ity of [facility] 4.2.7.2.686 [facility] [id number] [address] 2021-09-16 2021-09-16 Outpatient R BROOKS BARKER [facility] ERT [id number] Univers 11:30:00 13:55:07 [facility] 2021-09-16 2021-09-16 Office [facility] 1.2.840.114 [id number] Univers 11:30:00 13:55:07 Visit Howardalvaroveronique [facility] 350.1.13.10 ity of [facility] 4.2.7.2.686 [facility] [phone] Sd dical [place] [address] Branch BUILDING 2021-09-16 2021-09-16 Outpatient R BROOKS BARKER [facility] ERT [id number] Univers 11:30:00 13:55:07 BROOKS BARKER [facility] 2021-09-16 2021-09-16 Outpatient R BROOKS BARKER [facility] [id number] Univers 11:30:00 11:30:00 BROOKS BARKER [facility] 2021-09-13 2021-09-13 Telephone [facility] 1.2.840.114 [id number] Univers 00:00:00 00:00:00 [facility] 350.1.13.10 i ty of [place] 4.2.7.2.686 [facility] [phone] [facility] [address] OFFICE BUILDING 2021-09-09 2021-09-09 Emergency X NIKKI, K [facility] ERT [id number] Univers 11:03:00 17:12:00 ity [facility] 2021-09-09 2021-09-09 Emergency Jairo Jordan [facility] 1.2.840.114 [id number] Univers 11:03:00 17:12:00 Janny TSANG 350.1.13.10 i ty of [place] 4.2.7.2.686 [facility] [id number] [place] [address] Branch 2021-09-09 2021-09-09 Emergency X Jairo JORDAN [facility] ERT [id number] Univers 11:03:00 17:12:00 ity of [facility] 2021-09-09 2021-09-09 Emergency X Jairo JORDAN [facility] ERT [id number] Univers 11:03:00 17:12:00 ity of [facility] 2021-09-09 2021-09-09 Telephone Nicolás LORENZO 1.2.840.114 [id number] Univers 00:00:00 00:00:00 Francesca PEDIATRIC 350.1.13.10 ity of [place] [id number] [facility] PRIMARY 059 [address] CARE CLINIC 2021-09-07 2021-09-07 Emergency X [facility] E[facility] [id number] Univers 09:04:00 13:57:00 MARY ity of [facility] 2021-09-07 2021-09-07 Emergency [facility] 1.2.840.114 [id number] Univers 09:04:00 13:57:00 Mary TSANG 350.1.13.10 ity of [place].2.7.2.686 [place] [id number] [facility] 084 [address] 2021-09-07 2021-09-07 Emergency X JUHI [facility] ERT [id number] Univers 09:04:00 13:57:00 MARY ity of [facility] 2021-09-07 2021-09-07 Nurse EDMUND Degroot 1.2.840.114 [id number] Univers 00:00:00 00:00:00 Triage Macy WRIGHT 350.1.13.10 it y of [facility] 4.2.7.2.686 [place] as [id number] [facility] 019 [address] 2021-09-06 2021-09-06 Telephone Jacky [facility] 1.2.840.114 [id number] Univers 00:00:00 00:00:00 Gino [facility] 350.1.13.10 i ty of [place].2.7.2.686 [place] [id number] [facility] [address] OFFICE BUILDING 2021-09-06 2021-09-[address] [facility] 1.2.840.114 [id number] Univers 00:00:00 00:00:00 Kim A [facility] 350.1.13.10 ity of [facility] 4.2.7.2.686 [place] as YOUSIF?BLEA [phone] Sd dicmartina KNEY [address] [place] MEDICAL OFFICE BUILDING 2021-09-06 2021-09-06 Orders Doctor EDMUND 1.2.840.114 [id number] Univers 00:00:00 00:00:00 Only Unassigned, KYLE 350.1.13.10 ity of [facility] 4.2.7.2.686 [place] as [id number] [address] 2021-09-05 2021-09-05 [facility] [id number] Univers 13:00:00 13:58:09 [facility] 2021-09-05 2021-09-05 Outpatient [facility] [id number] Univers 13:00:00 13:58:09 [facility] 2021-09-05 2021-09-[address] [facility] 1.2.840.114 [id number] Univers 13:00:00 13:58:09 Visit Kim TSANG 350.1.13.10 ity of [facility] 4.2.7.2.686 [place] [id number] [place] [address] Branch BUILDING 2021-09-05 2021-09-05 Outpatient R ROBERT [facility] [id number] Univers 13:00:00 13:58:09 [facility] 2021-09-05 2021-09-05 [facility] [id number] Univers 13:00:00 13:58:09 [facility] 2021-09-05 2021-09-05 Outpatient R ROBERT [facility] [id number] Univers 13:00:00 13:58:09 [facility] 2021-09-05 2021-09-05 [facility] [id number] Univers 13:00:00 13:00:00 KIM ity of [facility] 2021-09-04 2021-09-04 Transition SRIDHAR Seth 1.2.840.114 [id number] Univers 00:00:00 00:00:00 of Care Page RMY 350.1.13.10 it y of [place].2.[place] [id number] [facility] [address] 2021-09-03 2021-09-03 Transition SRIDHAR Seth 1.2.840.114 [id number] Univers 00:00:00 00:00:00 of Care Page Cespedes VE[place] 350.1.13.10 it y of [place]2.7.2.[place] [id number] [facility] [address] 2021-08-28 2021-09-02 [facility] Mac Miranda [facility] 1.2.840.1 14 [id number] Univers 17:20:00 13:00:00 Encounter Faby [facility] 350.1.13.10 ity of [place] Thelma Keith [place] 4.2.7.2.686 [place] [phone] [facility] [address] ([facility]) 2021-08-28 2021-09-02 Inpatient X [facility] DIONISIO [id number] Univers 17:20:00 13:00:00 ATHERPAOLA ity o f [facility] 2021-08-28 2021-09-02 Inpatient X [facility] DIONISIO [id number] Univers 17:20:00 13:00:00 ATHERPAOLA, ity o f [facility] 2021-08-31 2021-08-31 Telephone EDMUND Morgan 1.2.537.098 [id number] Univers 00:00:00 00:00:00 sIrael WRIGHT 350.1.13.10 it y of HOSPITAL 4.2.7.2.686 [place] [id number] [facility] 008 [address] 2021-08-31 2021-08-31 Telephone EDMUND Morgan 1.2.745.887 [id number] Univers 00:00:00 00:00:00 Bes KYLE 350.1.13.10 it y of HOSPITAL 4.2.7.2.686 [place] [id number] [address] 2021-08-30 2021-08-30 Outpatient R DEL- [facility] [id number] Univers 14:30:00 14:30:00 FRANCESCA ity [facility] 2021-08-28 2021-08-28 Outpatient R MJJOIE MURRAYARIS [facility] [id number] Univers 16:30:00 17:14:19 MJ JOIEDonnieVeronique ity [facility] 2021-08-28 2021-08-28 Outpatient R MJHOWARDFABIOLA [facility] [id number] Univers 16:30:00 17:14:19 MJ JOIEDonnieVeronique [facility] 2021-08-28 2021-08-28 Office Mj [facility] 1.2.840.114 [id number] Univers 16:30:00 17:14:19 Visit Alexveronique [place] [facility].1.13.10 [facility] 4.2.7.2.[place] [id number] [address] 2021-08-28 2021-08-28 Outpatient R MJJOIEARIS [facility] [id number] Univers 16:30:00 17:14:19 MJ JOIEDonnieVeronique [facility] 2021-08-28 2021-08-28 Outpatient R BROOKS BARKER [facility] [id number] Univers 16:30:00 17:14:19 MJ JOIEDonnieVeronique ity [facility] 2021-08-28 2021-08-28 Outpatient R BROOKS BARKER [facility] [id number] Univers 16:30:00 17:14:19 MJ JOIEARIS ity [facility] 2021-08-28 2021-08-28 Outpatient R BROOKS BARKER [facility] [id number] Univers 16:30:00 17:14:19 MJ BROOKS ity [facility] 2021-08-28 2021-08-28 Outpatient R BROOKS BARKER [facility] [id number] Univers 16:30:00 17:14:19 BROOKS BARKER [facility] 2021-08-28 2021-08-28 Outpatient R BROOKS BARKER [facility] [id number] Univers 16:30:00 17:14:19 BROOKS BARKER itblaire [facility] 2021-08-28 2021-08-28 Outpatient R BROOKS BARKER [facility] [id number] Univers 16:30:00 17:14:19 BROOKS BARKER [facility] 2021-08-28 2021-08-28 Outpatient R BROOKS BARKER [facility] [id number] Univers 16:30:00 17:14:19 BROOKS BARKER [facility] 2021-08-28 2021-08-28 Telephone [facility] 1.2.840.114 [id number] Univers 00:00:00 00:00:00 Kim TSANG 350.1.13.10 ity of [place] 4.2.7.2.686 [place] [id number] [facility] [address] [facility] 2021-08-27 2021-08-27 Transition SRIDHAR Seth 1.2.840.114 [id number] Univers 00:00:00 00:00:00 of Care Page [place] 350.1.13.10 it y of [place] 4.2.7.2.686 [place] [id number] [facility] [address] 2021-08-27 2021-08-27 Orders Doctor EDMUND 1.2.840.114 [id number] Univers 00:00:00 00:00:00 Only Unassigned, KYLE 350.1.13.10 ity of [place] [facility] 4.2.7.2.686 [place] [id number] [facility] [address]9 [address] 2021-08-22 2021-08-26 Inpatient X JORDIN [facility] DIONISIO [id number] Univers 22:10:00 10:50:00 [place] blaire [facility] 2021-08-22 2021-08-26 Inpatient X JORDIN [facility] DIONISIO [id number] Univers 22:10:00 10:50:00 [place] mejias [facility] 2021-08-22 2021-08-26 Inpatient X JORDIN [facility] DIONISIO [id number] Univers 22:10:00 10:50:00 [place] blaire [facility] 2021-08-22 2021-08-26 Inpatient X JORDIN [facility] DIONISIO [id number] Univers 22:10:00 10:50:00 [place] [facility] 2021-08-22 2021-08-26 Inpatient X JORDIN [facility] DIONISIO [id number] Univers 22:10:00 10:50:00 [facility] 2021-08-22 2021-08-26 Inpatient X JORDIN [facility] DIONISIO [id number] Univers 22:10:00 10:50:00 [facility] 2021-08-22 2021-08-26 [facility] Ursula Taz Paul [facility] 1.2.840.11 [id number] Univers 22:10:00 10:50:00 Encounter Janiya Alonzo 350.1.13.10 ity [place] Espinoza [place] 4.2.7.2.686 [facility] [phone] [facility] [address] 2021-08-26 2021-08-26 [facility] [id number] Univers 00:00:00 00:00:00 STEVEN [facility] 2021-08-26 2021-08-26 Telephone Nicolás LORENZO 1.2.840.114 [id number] Univers 00:00:00 00:00:00 Francesca, PEDIATRIC 350.1.13.10 ity of [place] [phone] [facility] PRIMARY [address] CARE CLINIC 2021-08-23 2021-08-23 Outpatient [facility] [id number] Univers 08:50:00 08:50:00 [facility] 2021-08-23 2021-08-23 Outpatient Paul MELLO [facility] [id number] Univers 08:50:00 08:50:00 [facility] 2021-08-23 2021-08-23 Outpatient Paul MELLO [facility] [id number] Univers 08:50:00 08:50:00 [facility] 2021-08-23 2021-08-23 Outpatient Paul MELLO [facility] [id number] Univers 08:50:00 08:50:00 [facility] 2021-08-23 2021-08-23 Outpatient Paul MELLO [facility] [id number] Univers 08:50:00 08:50:00 [facility] 2021-08-23 2021-08-23 Outpatient Paul MELLO [facility] [id number] Univers 08:50:00 08:50:00 [facility] 2021-08-23 2021-08-23 Outpatient Paul MELLO [facility] [id number] Univers 08:50:00 08:50:00 [facility] 2021-08-23 2021-08-23 Outpatient Paul MELLO [facility] [id number] Univers 08:50:00 08:50:00 [facility] 2021-08-20 2021-08-20 Transition SRIDHAR Seth 1.2.840.114 [id number] Univers 00:00:00 00:00:00 of Care Page [place] 350.1.13.10 it y [place] [id number] [address] 2021-08-13 2021-08-16 In[facility]ION[facility] [id number] Univers 18:42:00 11:20:[facility] 2021-08-13 2021-08-16 In[facility] X [facility] DION[facility] [id number] Univers 18:42:00 11:20:00 [facility] 2021-08-13 2021-08-16 Inpatient X ISELA [facility] DIONISIO [id number] Univers 18:42:00 11:20:00 BJ blaire [facility] 2021-08-13 2021-08-16 Inpatient X ISELA [facility] DIONISIO [id number] Univers 18:42:00 11:20:00 [facility] 2021-08-13 2021-08-16 [facility] Henrique Remy Coy [facility] 1.2.840. 114 [id number] Univers 18:42:00 11:20:00 Oh Sheriff 350.1.13.10 [facility] Bj [facility] 4.2.7.2.686 [facility] [id number] [address] 2021-08-14 2021-08-14 Outpatient R KIKE [facility] [id number] Univers 14:45:00 14:45:00 [facility] 2021-08-14 2021-08-14 Outpatient R KIKE [facility] [id number] Univers 14:45:00 14:45:00 [facility] 2021-08-14 2021-08-14 Outpatient R KIKE [facility] [id number] Univers 14:45:00 14:45:00 [facility] 2021-08-14 2021-08-14 Outpatient R KIKE [facility] [id number] Univers 14:45:00 14:45:00 [facility] 2021-08-14 2021-08-14 Outpatient R KIKE [facility] [id number] Univers 14:45:00 14:45:00 [facility] 2021-08-14 2021-08-14 Outpatient R KIKE [facility] [id number] Univers 14:45:00 14:45:00 [facility] 2021-08-14 2021-08-14 Outpatient R KIKE [facility] [id number] Univers 14:45:00 14:45:00 [facility] 2021-08-14 2021-08-14 Outpatient R KIKE [facility] [id number] Univers 14:45:00 14:45:00 [facility] 2021-08-14 2021-08-14 Telephone Nicolás LORENZO 1.2.840.114 [id number] Univers 00:00:00 00:00:00 Ostrander, PEDIATRIC 350.1.13.10 ity of [place].2.[place] [id number] [address] 2021-08-12 2021-08-12 Outpatient R BROOKS BARKER [facility] [id number] Univers 15:00:00 15:56:28 BROOKS BARKER ity [facility] 2021-08-12 2021-08-12 Outpatient R MJBROOKS BAUMANN [facility] [id number] Univers 15:00:00 15:56:28 [facility] 2021-08-12 2021-08-12 Outpatient R MJBROOKS BAUMANN [facility] [id number] Univers 15:00:00 15:56:28 [facility]-12 2021-08-12 Outpatient R BROOKS BARKER [facility] [id number] Univers 15:00:00 15:56:28 [facility]-12 2021-08-12 Outpatient R BROOKS BARKER [facility] [id number] Univers 15:00:00 15:56:28 BROOKS BARKER ity [facility] 2021-08-12 2021-08-12 Outpatient R MJBROOKS [facility] [id number] Univers 15:00:00 15:56:28 MJBROOKS [facility]UMANN ity [facility] 2021-08-12 2021-08-12 Outpatient R MJBROOKS [facility] [id number] Univers 15:00:00 15:56:28 BROOKS BARKER ity [facility] 2021-08-12 2021-08-12 Office Mj [facility] [id number] Univers 15:00:00 15:56:28 Visit Brooks TSANG [id number] [facility] [id number] [id number] Sd dical NAL 044 [facility] 2021-08-09 2021-08-09 [facility] [id number] Univers 00:00:00 00:00:00 Kim Ordaz LENORE [id number] [facility] [id number] [id number] Sd dical NAL 231 [facility] 2021-08-07 2021-08-07 [facility] [id number] Univers 14:30:00 14:30:00 ROBERTO [facility] 2021-08-07 2021-08-07 Transition Seth ONEALMuriel [id number] Univers 00:00:00 00:00:00 of Eusebio VEGA [id number] [id number] [id number] [address] 2021-08-04 2021-08-06 [facility] [id number] Univers 16:37:00 15:45:00 CRISS mejias [facility] 2021-08-04 2021-08-06 Inpatient X [facility]UMN [facility] DIONISIO [id number] Univers 16:37:00 15:45:00 CRISS mejias [facility] 2021-08-04 2021-08-06 Inpatient X [facility] DIONISIO [id number] Univers 16:37:00 15:45:00 [facility] [place] [facility]-04 2021-08-06 [facility] Destiny Gomez [facility] 1.2.840.11 [id number] Univers 16:37:00 15:45:00 Encounter Criss [facility]va [facility]13.10 [facility] 4.2.7.2.686 [facility] [id number] [facility] [address] [place] 2021-08-04 2021-08-06 Inpatient X AUTUMN [facility] DIONISIO [id number] Univers 16:37:00 15:45:00 CRISS mejias [facility] 2021-08-04 2021-08-06 Inpatient X AUTUMN [facility] [id number] Univers 16:37:00 15:45:00 CRISS mejias [facility] 2021-08-04 2021-08-04 Inpatient X AUTUMN [facility] [id number] Univers 16:37:00 16:37:00 CRISS [facility] 2021-08-02 2021-08-02 Outpatient Paul MELLO [facility] [id number] Univers 09:50:00 09:50:00 [facility] 2021-08-02 2021-08-02 Imm/Inj Nurse, Adc Pob Immunization [facility] 1.2.840.114 [id number] Univers 09:50:00 09:50:00 Visit Mohsen Mello 350.1.13 .10 [facility] 4.2.7.2.686 [facility] [id number] [address] 2021-08-02 2021-08-02 Outpatient Paul MELLO [facility] [id number] Univers 09:50:00 09:45:35 MOHSEN mejias [facility] 2021-08-02 2021-08-02 Outpatient Paul MELLO [facility] [id number] Univers 09:50:00 09:45:35 MOHSEN blaire [facility] 2021-08-02 2021-08-02 Outpatient Paul MELLO [facility] [id number] Univers 09:50:00 09:45:35 MOHSEN blaire [facility] 2021-08-02 2021-08-02 Outpatient Paul MELLO [facility] [id number] Univers 09:50:00 09:45:35 MOHSEN blaire [facility] 2021-08-02 2021-08-02 Outpatient R CAPRICE [facility] [id number] Univers 09:50:00 09:45:35 MOHSEN blaire [facility] 2021-08-02 2021-08-02 Outpatient R CAPRICE [facility] [id number] Univers 09:50:00 09:45:35 MOHSEN blaire [facility] 2021-08-02 2021-08-02 Outpatient Paul MELLO [facility] [id number] Univers 09:50:00 09:45:35 MOHSEN blaire [facility] 2021-08-02 2021-08-02 Outpatient R CAPRICE [facility] [id number] Univers 09:50:00 09:45:35 [facility] 2021-08-01 2021-08-01 [facility] 1.2.840.114 [id number] Univers 00:00:00 00:00:00 Kim TSANG 350.1.13.10 [facility] 4.2.7.2.686 Glenn LIMA [phone] Sd dical [address] 2021-07-31 2021-07-31 Outpatient R KIKE [facility] [id number] Univers 15:00:00 15:00:00 [facility] 2021-07-31 2021-07-31 Outpatient R KIKE [facility] [id number] Univers 15:00:00 15:00:00 [facility] 2021-07-30 2021-07-30 Emergency X SINGER [facility] ERT [id number] Univers 07:42:00 08:48:00 [facility] 2021-07-30 2021-07-30 Emergency X SINGER [facility] ERT [id number] Univers 07:42:00 08:48:00 [facility] 2021-07-30 2021-07-30 Emergency X SINGER [facility] ERT [id number] Univers 07:42:00 08:48:00 [facility] 2021-07-30 2021-07-30 Emergency X [facility] ERT [id number] Univers 07:42:00 08:48:00 PIA mejias [facility] 2021-07-30 2021-07-30 Emergency X SINGER [facility] ERT [id number] Univers 07:42:00 08:48:00 PIA mejias [facility] 2021-07-30 2021-07-30 Emergency Singer [facility] 1.2.231.854 [id number] Univers 07:42:00 08:48:00 Pia TSANG 350.1.13.10 i ty of [place].2.686 [place] [id number] [address] 2021-07-30 2021-07-30 Emergency X [facility] ERT [id number] Univers 07:42:00 08:48:00 PIA mejias [facility] 2021-07-29 2021-07-29 Emergency X [facility] [place] [id number] Univers 20:51:00 23:32:00 DEBBY mejias [facility] 2021-07-29 2021-07-29 Emergency [facility] [place] [id number] Univers 20:51:00 23:32:00 DEBBY mejias [facility] 2021-07-29 2021-07-29 Emergency [facility] 1.2.733.881 [id number] Univers 20:51:00 23:32:00 Debby TSANG 350.1.13.10 i ty of [place] 4.2.7.2.686 [facility] [id number] [address] 2021-07-29 2021-07-29 Emergency [facility] [place]RT [id number] Univers 20:51:00 23:32:00 DEBBY [facility] 2021-07-29 2021-07-29 Nurse EDMUND Dumas 1.2.840.114 [id number] Univers 00:00:00 00:00:00 Triage Adilene CREWSY 350.1.13.10 it y of [facility] 4.2.7.2.686 [place] as [phone] [address] 2021-07-28 2021-07-28 Emergency X [facility] [id number] Univers 13:37:00 17:00:00 DEBBY [facility]blaire [facility] 2021-07-28 2021-07-28 Emergency X [facility] [place]RT [id number] Univers 13:37:00 17:00:00 DEBBY ity [facility] 2021-07-28 2021-07-28 Emergency [facility] 1.2.066.016 [id number] Univers 13:37:00 17:00:00 Debby S [place] 350.1.13.10 i ty [place] [id number] [facility] [address] 2021-07-28 2021-07-28 Emergency X [facility] [place] ERT [id number] Univers 13:37:00 17:00:00 DEBBY [facility] 2021-07-27 2021-07-27 Nurse Doris Christensen 1.2.840.114 [id number] Univers 00:00:00 00:00:00 Triage KYLE 350.1.13.10 it y of [facility] 4.2.7.2.686 [place] as [id number] [facility] [address] 2021-07-25 2021-07-25 Transition SRIDHAR Seth 1.2.840.114 [id number] Univers 00:00:00 00:00:00 of Care Page RMY 350.1.13.10 it y of [place].2.7.2.[place] [id number] [facility] [address] 2021-07-25 2021-07-25 Telephone Robret [facility] 1.2.840.114 [id number] Univers 00:00:00 00:00:00 Kim TSANG 350.1.13.10 ity of [place] [id number] [facility] 044 [facility] 2021-07-24 2021-07-24 Emergency X [facility] ERT [id number] Univers 16:12:00 16:59:00 PIA [facility] 2021-07-24 2021-07-24 Emergency X SINGER [facility] ERT [id number] Univers 16:12:00 16:59:00 PIA mejias [facility] 2021-07-24 2021-07-24 Emergency X WATTS, [facility] ERT [id number] Univers 16:12:00 16:59:00 PIA mejias [facility] 2021-07-24 2021-07-24 Emergency X , [facility] ERT [id number] Univers 16:12:00 16:59:00 PIA mejias [facility] 2021-07-24 2021-07-24 Emergency X , [facility] ERT [id number] Univers 16:12:00 16:59:00 PIA mejias [facility] 2021-07-24 2021-07-24 Emergency X WATTS, [facility] ERT [id number] Univers 16:12:00 16:59:00 PIA mejias [facility] 2021-07-24 2021-07-24 Emergency X , [facility] ERT [id number] Univers 16:12:00 16:59:00 PIA mejias [facility] 2021-07-24 2021-07-24 Emergency , [facility] 1.2.675.927 [id number] Univers 16:12:00 16:59:00 Pia LENORE 350.1.13.10 i ty [facility] 4.2.7.2.686 [facility] [id number] [place] [address] [place] 2021-07-22 2021-07-24 Outpatient X ISELA, [facility] DIONISIO [id number] Univers 11:38:00 13:01:00 BJ mejias [facility] 2021-07-22 2021-07-24 Outpatient X ISELA [facility] [id number] Univers 11:38:00 13:01:00 BJ mejias [facility] 2021-07-22 2021-07-24 Emergency Karine Montez [facility] 1.2. 840.114 [id number] Univers 11:38:00 13:01:00 IselaHarjinderBjgaby TSANG 350.1.13.10 ity [facility] 4.2.7.2.686 [facility] [phone] [facility] [address] 2021-07-22 2021-07-24 Outpatient X ISELA [facility] D[facility] [id number] Univers 11:38:00 13:01:00 BJ ity [facility] 2021-07-22 2021-07-22 Emergency X FREEDOM, [facility] ERT [id number] Univers 11:38:00 11:38:00 [facility] 2021-07-22 2021-07-22 Telephone [facility] 1.2.840.114 [id number] Univers 00:00:00 00:00:00 Kim TSANG 350.1.13.10 [facility] 4.2.7.2.686 [facility] [id number] [address] 2021-07-19 2021-07-19 Outpatient R ITURRIZAGA- [facility] [id number] Univers 14:30:00 14:31:55 randell MA [facility] 2021-07-19 2021-07-19 Outpatient R ITURRIZAGA- [facility] [id number] Univers 14:30:00 14:31:55 randell MA [facility] 2021-07-19 2021-07-19 Outpatient R ITURRIZAGA- [facility] [id number] Univers 14:30:00 14:31:55 randell MA [facility] 2021-07-19 2021-07-19 [facility] [id number] Univers 14:30:00 14:31:55 gary MAy [facility] 2021-07-19 2021-07-19 Outpatient R ITURRIZAGA- [facility] [id number] Univers 14:30:00 14:31:55 randell MA [facility] 2021-07-19 2021-07-19 Outpatient R ITURRIZAGA- [facility] [id number] Univers 14:30:00 14:31:55 randell MA [facility] 2021-07-19 2021-07-19 [facility] [id number] Univers 14:30:00 14:31:55 FRANCESCA, ity of [facility] 2021-07-19 2021-07-19 [facility] [id number] Univers 14:30:00 14:31:55 FRANCESCA, ity of [facility] 2021-07-19 2021-07-19 [facility] [id number] Univers 14:30:00 14:31:55 FRANCESCA, ity of [facility] 2021-07-19 2021-07-19 [facility] [id number] Univers 14:30:00 14:31:55 FRANCESCA itblaire of [facility] 2021-07-19 2021-07-19 Office Iturrradhaadrienne- MAURA 1.2.840.114 [id number] Univers 14:30:00 14:31:55 Visit Francesca PEDIATRIC 350.1.13.10 ity of [facility] [place] [id number] [facility] PRIMARY [address] [facility] 2021-07-19 2021-07-19 [facility] [id number] Univers 14:30:00 14:31:55 FRANCESCA itblaire of [facility] 2021-07-19 2021-07-19 Outpatient [facility] [id number] Univers 14:30:00 14:31:55 FRANCESCA ity of [facility] 2021-07-19 2021-07-19 Telephone Iturrizaga- UNIVERSIT 1.2.840.11 [id number] Univers 00:00:00 00:00:00 Francesca HEALTH 350.1.13.10 ity of [place] [id number] [facility] [address] 2021-07-19 2021-07-19 Telephone Iturrizaga- UNIVERSIT 1.2.840.11 4 [id number] Univers 00:00:00 00:00:00 Francesca Y HEALTH 350.1.13.10 ity of [place] [id number] [facility] [address] 2021-07-17 2021-07-18 Emergency X [facility] ERT [id number] Univers 22:49:00 00:38:00 LUIS ANGEL ity [facility] 2021-07-17 2021-07-18 Emergency X [facility] ERT [id number] Univers 22:49:00 00:38:00 LUIS ANGEL ity [facility] 2021-07-17 2021-07-18 Emergency [facility] 1.2.767.534 [id number] Univers 22:49:00 00:38:00 Luis Angel TSANG 350.1.13.10 i ty [place] [id number] [facility] [address] 2021-07-17 2021-07-18 Emergency X [facility] ERT [id number] Univers 22:49:00 00:38:00 [facility] [place] 2021-07-17 2021-07-17 Telephone Nicolás LORENZO 1.2.840.114 [id number] Univers 00:00:00 00:00:00 Francesca, PEDIATRIC 350.1.13.10 [place] [id number] [facility] PRIMARY [address] [facility]ARE [facility] 2021-07-17 2021-07-17 Telephone Robert [facility] 1.2.840.114 [id number] Univers 00:00:00 00:00:00 Kim TSANG 350.1.13.10 ity of [place].2.[place] [facility] [id number] [facility] [address] [facility] 2021-07-17 2021-07-17 Transition SRIDHAR Faibranks 1.2.840.114 [id number] Univers 00:00:00 00:00:00 of Care Yvonne VEGA 350.1.13.10 i ty of [place] 4.2.7.2.686 [place] [id number] [address] 2021-07-14 2021-07-16 Outpatient X OVILLE, [facility] DIONISIO [id number] Univers 18:17:00 [facility]:24[facility] 2021-07-16 Outpatient X [place], [facility] D[facility] [id number] Univers 18:17:00 10:24:00 [facility]-07-14 2021-07-16 Outpatient X [place], [facility] [id number] Univers 18:17:00 10:24:00 [facility] 2021-07-14 2021-07-16 Outpatient X [place], [facility] [id number] Univers 18:17:00 10:24:00 [facility]-07-14 2021-07-16 Outpatient X [place], [facility] DION[facility] [id number] Univers 18:17:00 10:24:00 [facility] 2021-07-14 2021-07-16 Outpatient X [place], [facility] [id number] Univers 18:17:00 10:24:[facility]-07-[facility] 2021-07-16 Outpatient X [place], [facility] D[facility] [id number] Univers 18:17:00 10:24:00 [facility] 2021-07-14 2021-07-16 Outpatient X [place], [facility] D[facility] [id number] Univers 18:17:00 10:24:00 [facility] 2021-07-14 2021-07-16 Outpatient X [place], [facility] D[facility] [id number] Univers 18:17:00 10:24:00 [facility] 2021-07-14 2021-07-16 Outpatient X [place], [facility] DION[facility]IO [id number] Univers 18:17:00 10:24:00 [facility] 2021-07-14 2021-07-16 [facility] Destiny Gomez [facility] 1.2.840.11 [id number] Univers 18:17:00 10:24:00 Encounter Bj Weiss [facility].1.13.10 [facility] 4.2.7.2.686 [facility] [id number] [address] 2021-07-14 2021-07-16 Outpatient X ISELA [facility] D[facility] [id number] Univers 18:17:00 10:24:00 BJ itblaire [facility] 2021-07-14 2021-07-16 Outpatient X ISELA [facility] [id number] Univers 18:17:00 10:24:00 BJ mejias [facility] 2021-07-14 2021-07-14 Outpatient X ISELA [facility] D[facility] [id number] Univers 18:17:00 18:17:00 BJ [facility] 2021-07-09 2021-07-09 [facility] [id number] Univers 14:00:00 14:00:00 randell MA [facility] 2021-07-09 2021-07-09 [facility] [id number] Univers 14:00:00 14:00:00 randell MA [facility] 2021-07-09 2021-07-09 [facility] [id number] Univers 14:00:00 14:00:00 randell MA [facility] 2021-07-09 2021-07-09 [facility] [id number] Univers 14:00:00 14:00:00 randell MA [facility] 2021-07-09 2021-07-09 [facility] [id number] Univers 14:00:00 14:00:00 randell AM [facility] 2021-07-09 2021-07-09 [facility] [id number] Univers 14:00:00 14:00:00 randell MA [facility] 2021-07-09 2021-07-09 [facility] [id number] Univers 14:00:00 14:00:00 randell MA of [facility] 2021-07-09 2021-07-09 Outpatient [facility] [id number] Univers 14:00:00 14:00:00 randell MA [facility] 2021-07-09 2021-07-[address] [facility] 1.2.840.114 [id number] Univers 00:00:00 00:00:00 Kim TSANG 350.1.13.10 ity [place] [id number] [address] 2021-07-09 2021-07-09 [facility] 1.2.840.114 [id number] Univers 00:00:00 00:00:00 Kim TSANG 350.1.13.10 it[place] [id number] [address] 2021-07-08 2021-07-08 Emergency [facility] [id number] Univers 10:08:00 14:13:00 MARY ity [facility] 2021-07-08 2021-07-08 Emergency X [facility] [id number] Univers 10:08:00 14:13:00 MARY ity [facility] 2021-07-08 2021-07-08 [facility] [place] 1.2.840.114 [id number] Univers 10:08:00 14:13:00 Mary TSANG 350.1.13.10 it[place] [id number] [address] 2021-07-08 2021-07-08 Emergency X [facility] ERT [id number] Univers 10:08:00 14:13:00 MARY ity [facility] 2021-07-08 2021-07-08 Emergency X [facility]RT [id number] Univers 10:08:00 14:13:00 MARY itblaire [facility] 2021-07-08 2021-07-08 Emergency X [facility]RT [id number] Univers 10:08:00 14:13:00 MARY ity [facility] 2021-07-08 2021-07-08 Emergency X JUHI [facility] ERT [id number] Univers 10:08:00 10:08:00 MARY mejias [facility] 2021-07-08 2021-07-08 Telephone Robert [facility] 1.2.840.114 [id number] Univers 00:00:00 00:00:00 Kim TSANG 350.1.13.10 it[place] [id number] [facility] [address] [facility] 2021-07-04 2021-07-04 Transition SRIDHAR Seth 1.2.840.114 [id number] Univers 00:00:00 00:00:00 of Eusebio VEGA 350.1.13.10 it y of [place] [id number] [facility] [address] 2021-07-04 2021-07-04 Orders Doctor EDMUND 1.2.840.114 [id number] Univers 00:00:00 00:00:00 Only Unassigned, KYLE 350.1.13.10 ity of [place] [facility] 4.2.7.2.686 [place] as [id number] [facility] [address] 2021-07-01 2021-07-03 Inpatient X AUTUMN [facility] DIONISIO [id number] Univers 16:45:00 13:06:00 CRISS mejias [facility] 2021-07-01 2021-07-03 [facility] Karine Montez [facility] 1.2.8 40.114 [id number] Univers 16:45:00 13:06:00 Encounter Criss Leyva 350.1.13.10 ity of [place] [id number] [facility] [address] 2021-07-03 2021-07-03 Telephone Robert [facility] 1.2.840.114 [id number] Univers 00:00:00 00:00:00 Kim Orlin [place] 350.1.13.10 ity of [place] [id number] Sd wagner BAH [address] [place] [address] 2021-07-03 2021-07-03 Telephone [facility] 1.2.840.114 [id number] Univers 00:00:00 00:00:00 Kim Orlin [place] 350.1.13.10 ity of [place] [id number] Sd elsa[address] 2021-07-01 2021-07-02 Outpatient R ROBERT [facility] [id number] Univers 15:40:00 08:32:30 KIM ity [facility] 2021-07-01 2021-07-02 Outpatient R ROBERT [facility] [id number] Univers 15:40:00 08:32:30 KIM ity [facility] 2021-07-01 2021-07-02 Outpatient R ROBERT [facility] [id number] Univers 15:40:00 08:32:30 KIM ity [facility] 2021-07-01 2021-07-02 Outpatient R ROBERT [facility] [id number] Univers 15:40:00 08:32:30 KIM ity [facility] 2021-07-01 2021-07-02 Outpatient R ROBERT [facility] [id number] Univers 15:40:00 08:32:30 KIM ity [facility] 2021-07-01 2021-07-02 Outpatient R ROBERT [facility] [id number] Univers 15:40:00 08:32:30 KIM ity [facility] 2021-07-01 2021-07-02 Outpatient R ROBERT [facility] [id number] Univers 15:40:00 08:32:30 KIM ity [facility] 2021-07-01 2021-07-02 Outpatient R ROBERT [facility] [id number] Univers 15:40:00 08:32:30 KIMMILAGROS mejias [facility] 2021-07-01 2021-07-02 Outpatient R ROBERT [facility] [id number] Univers 15:40:00 08:32:30 KIMMILAGROS mejias [facility] 2021-07-01 2021-07-02 Outpatient R ROBERT [facility] [id number] Univers 15:40:00 08:32:30 KIMMILAGROS mejias [facility] 2021-07-01 2021-07-02 Outpatient R ROBERT [facility] [id number] Univers 15:40:00 08:32:30 KIMMILAGROS mejias [facility] 2021-07-01 2021-07-02 Office [facility] 1.2.840.114 [id number] Univers 15:40:00 08:32:30 Visit Kim TSANG 350.1.13.10 ity [facility] 4[place].2.[place] [id number] Sd dic[address] 2021-07-01 2021-07-02 Outpatient R ROBERT [facility] [id number] Univers 15:40:00 08:32:30 KIM mejias [facility] 2021-07-01 2021-07-02 Outpatient R ROBERT [facility] [id number] Univers 15:40:00 08:32:30 KIMMILAGROS mejias [facility] 2021-07-02 2021-07-02 [place] [address]83.2.840.114 [id number] Univers 00:00:00 00:00:00 Kim TSANG 350.1.13.10 ity [facility] 4[place] [id number] [address] 2021-07-02 2021-07-02 Telephone [facility] 1.2.840.114 [id number] Univers 00:00:00 00:00:00 Kim A [place] 350.1.13.10 ity [facility] 4.2.[place].2.[place] [id number] Sd dical NAL [address] [facility] 2021-07-02 2021-07-[address] [facility] 1.2.840.114 [id number] Univers 00:00:00 00:00:00 Kim TSANG 350.1.13.10 ity [facility] [id number] [id number] [address] 2021-07-01 2021-07-01 [facility] [id number] Univers 15:40:00 15:40:00 KIM [facility] 2021-07-01 2021-07-01 [id number] Univers 15:40:00 15:40:[facility] 2021-07-01 [facility] 1.2.840.114 [id number] [facility] 00:00:00 00:00:00 Kim TSANG [id number] ity [id number] [id number] [address] 2021-07-01 2021-07-01 [facility] 1.2.840.114 [id number] Univers 00:00:00 00:00:00 Kim TSANG [id number] ity [facility] [id number] [phone] S[place] dical NAL [address] [place] [address] 2021-06-28 2021-06-28 [facility] 1.2.840.114 [id number] Univers 00:00:00 00:00:00 Maria E TSANG [id number] i ty of [facility] [id number] [phone] Sd dical NAL [address] [place] [address] 2021-06-26 2021-06-26 [facility] [id number] Univers 16:38:40 23:59:00 KIM mejias [facility] 2021-06-26 2021-06-26 [facility] 1.2.840.114 [id number] Univers 16:38:40 23:59:00 Encounter Kim TSANG [id number] ity [facility] [id number] [facility] [phone] [facility] [address] [place] 2021-06-26 2021-06-26 [facility] 1036 [id number] Univers 16:38:40 23:59:00 KIM ity [facility] 2021-06-26 2021-06-26 [facility] [id number] Univers 00:00:00 00:00:00 [facility]-06-26 2021-06-26 [facility]phone [facility] 1.2.840.11 [id number] Univers 00:00:00 00:00:00 Francesca [facility] [id number] [place]y [place] [facility] Center 4.2.7.2.686 [facility] [phone] [facility] 059 [place] 2021-06-25 2021-06-25 [facility] [id number] Univers 14:00:00 14:22:55 randell MA [facility] 2021-06-25 2021-06-25 Out[facility] [id number] Univers 14:00:00 14:22:55 randell MA [facility] 2021-06-25 2021-06-25 [facility] [id number] Univers 14:00:00 14:22:55 randell MA [facility] 2021-06-25 2021-06-25 [facility] [id number] Univers 14:00:00 14:22:55 FRANCESCA, ity of [facility] 2021-06-25 2021-06-25 Outpatient R ITURRIZAGA- [facility] [id number] Univers 14:00:00 14:22:55 FRANCESCA, ity of [facility] 2021-06-25 2021-06-25 Outpatient R ITURRIZAGA- [facility] [id number] Univers 14:00:00 14:22:55 FRANCESCA, ity of [facility] 2021-06-25 2021-06-25 Outpatient R ITURRIZAGA- [facility] [id number] Univers 14:00:00 14:22:55 FRANCESCA, ity of [facility] 2021-06-25 2021-06-25 Outpatient R ITURRIZAGA- [facility] [id number] Univers 14:00:00 14:22:55 FRANCESCA, ity of [facility] 2021-06-25 2021-06-25 [facility] [id number] Univers 14:00:00 14:22:55 FRANCESCA, ity of [facility] 2021-06-25 2021-06-25 Outpatient R ITURRIZAGA- [facility] [id number] Univers 14:00:00 14:22:55 FRANCESCA, ity of [facility] 2021-06-25 2021-06-25 Outpatient R ITURRIZAGA- [facility] [id number] Univers 14:00:00 14:22:55 FRANCESCA, ity of [facility] 2021-06-25 2021-06-25 Outpatient R ITURRIZAGA- [facility] [id number] Univers 14:00:00 14:22:55 FRANCESCA, ity of [facility] 2021-06-25 2021-06-25 Outpatient R ITURRIZAGA- [facility] [id number] Univers 14:00:00 14:22:55 FRANCESCA, ity of [facility] 2021-06-25 2021-06-25 Outpatient [facility] [id number] Univers 14:00:00 14:22:55 FRANCESCA ity of [facility] 2021-06-25 2021-06-25 Out[facility] [id number] Univers 14:00:00 14:22:55 FRANCESCA ity of [facility] 2021-06-25 2021-06-25 Office MariaelenaradhaadrienneYe LORENZO 1.2.840.114 [id number] Univers 13:55:53 14:22:55 Visit Francesca PEDIATRIC 350.1.13.10 [phone] [place] 6[address]189 [facility] CL[facility]IC 2021-06-22 2021-06-22 Orders Doctor EDMUND 1.2.840.114 [id number] Univers 00:00:00 00:00:00 Only Unassigned, KYLE 350.1.13.10 ity of [place] [facility] 4.2.7.2.686 [place] as [phone] [address] 2021-06-20 2021-06-20 [facility] [id number] Univers 11:20:00 12:36:56 [facility] 2021-06-20 [facility] [id number] Univers 11:20:00 12:36:56 [facility] [place] 2021-06-20 2021-06-20 Office Jones, [facility] 1.2.840.114 [id number] Univers 11:08:22 12:36:56 Visit Kim TSANG 350.1.13.10 it[place] of [place] [phone] [address] 2021-06-18 2021-06-18 [facility] [id number] Univers 15:00:00 15:00:00 gary MAy of [facility] 2021-06-18 2021-06-18 [facility] [id number] Univers 15:00:00 15:00:00 FRANCESCA ity of [facility] 2021-06-18 2021-06-18 [facility] [id number] Univers 15:00:00 15:00:00 gary MAy of [facility] 2021-06-18 2021-06-18 Outpatient [facility] [id number] Univers 15:00:00 15:00:00 gary MAy of [facility] 2021-06-18 2021-06-18 [facility] [id number] Univers 15:00:00 15:00:00 randell MA of [facility] 2021-06-18 2021-06-18 Outpatient R [facility] [id number] Univers 15:00:00 15:00:00 randell MA [facility] 2021-06-18 2021-06-18 Telephone Jones, [facility] 1.2.840.114 [id number] Univers 00:00:00 00:00:00 Kim TSANG 350.1.13.10 it[place] [id number] [address] 2021-06-18 2021-06-18 [facility] 1.2.840.114 [id number] Univers 00:00:00 00:00:00 Kim CARDENAS 350.1.13.10 it[place] of [place] [phone] [address] 2021-06-17 2021-06-17 [facility] 1.2.840.114 [id number] Univers 00:00:00 00:00:00 Kim TSANG 350.1.13.10 it[facility] 4.[place] [phone] [address] 2021-06-17 2021-06-17 [facility] 1.2.840.114 [id number] Univers 00:00:00 00:00:00 Kim TSANG 350.1.13.10 [facility] 4.2.7.2.686 Glenn [place] [id number] Sd dic[address] 2021-06-14 2021-06-14 [facility] [id number] Univers 15:20:00 15:20:00 [facility] 2021-06-14 2021-06-14 [facility] [id number] Univers 15:20:00 15:20:00 [facility] 2021-06-14 2021-06-14 [facility] [id number] Univers 15:20:00 15:20:00 [facility] 2021-06-14 2021-06-14 [facility] [id number] Univers 15:20:00 15:20:00 [facility] 2021-06-14 2021-06-14 [facility] [id number] Univers 15:20:00 15:20:00 [facility] 2021-06-14 2021-06-14 [facility] [id number] Univers 15:20:00 15:20:00 [facility] 2021-06-14 2021-06-14 [facility] [id number] Univers 15:20:00 15:20:00 [facility] 2021-06-14 2021-06-14 Out[facility] [id number] Univers 15:20:00 15:20:00 [facility] 2021-06-14 2021-06-14 [facility] [id number] Univers 15:20:00 15:20:00 [facility] 2021-06-14 2021-06-14 Transition SRIDHAR Seth 1.2.840.114 [id number] Univers 00:00:00 00:00:00 of Eusebio VEGA 350.1.13.10 it y CHR[place] 4.2.7.2.686 [facility] [id number] [facility] [address] 2021-06-12 2021-06-13 Out[facility] DION[facility] [id number] Univers 07:39:00 14:00:00 CRISS [facility] 2021-06-12 2021-06-13 Emergency Pia Watts [facility] 1.2.840. 114 [id number] Univers 07:39:00 14:00:00 Criss Leyva 350.1.13.10 ity [facility] 4.2.7.2.[place] [id number] [facility] [address] 2021-06-12 2021-06-13 Outpatient X AUTUMN [facility] DIONISIO [id number] Univers 07:39:00 14:00:00 CRISS blaire [facility] 2021-06-12 2021-06-13 Outpatient X AUTUMN [facility] DIONISIO [id number] Univers 07:39:00 14:00:00 CRISS blaire [facility] 2021-06-11 2021-06-11 Outpatient R [facility] [id number] Univers 09:40:00 09:40:00 ity [facility] 2021-06-11 2021-06-11 Outpatient R [facility] [id number] Univers 09:40:00 09:40:00 ity [facility] 2021-06-11 2021-06-11 Outpatient R [facility] [id number] Univers 09:40:00 09:40:00 ity [facility] 2021-06-11 2021-06-11 Outpatient R [facility] [id number] Univers 09:40:00 09:40:00 ity [facility] 2021-06-11 2021-06-11 Outpatient R [facility] [id number] Univers 09:40:00 09:40:00 ity [facility] 2021-06-11 2021-06-11 Outpatient R [facility] [id number] Univers 09:40:00 09:40:00 ity of [facility] 2021-06-11 2021-06-11 Transition ONEAL [place]banksMuriel 1.2.840.114 [id number] Univers 00:00:00 00:00:00 of Care Yvonne RMY 350.1.13.10 i ty of [place] [id number] [facility] [address] [place] 2021-06-11 2021-06-[address] [facility] 1.2.840.114 [id number] Univers 00:00:00 00:00:00 Kim TSANG 350.1.13.10 ity [facility] [place] [phone] [facility] 044 [facility] 2021-06-10 2021-06-10 Emergency X [facility] E[facility] [id number] Univers 10:45:00 15:00:00 MARY ity [facility] 2021-06-10 2021-06-10 Emergency [facility] 1.2.840.114 [id number] Univers 10:45:00 15:00:00 Mary TSANG 350.1.13.10 ity [facility] [place].2.7.2.[place] [phone] [facility] [address] [place] 2021-06-10 2021-06-10 Emergency X [facility] E[facility] [id number] Univers 10:45:00 15:00:00 MARY ity [facility] 2021-06-10 2021-06-[address] [facility] 1.2.840.114 [id number] Univers 00:00:00 00:00:00 Kim TSANG 350.1.13.10 ity [facility] [place] [phone] [facility] 231 [facility] 2021-06-10 2021-06-[address] [facility] 1.2.840.114 [id number] Univers 00:00:00 00:00:00 Kim TSANG 350.1.13.10 it[place] [id number] Sd dical NAL [address] [place] [address] 2021-06-10 2021-06-10 [facility] 1.2.840.114 [id number] Univers 00:00:00 00:00:00 Kim TSANG 350.1.13.10 it[place] of [place] [phone] Sd dical NAL [address] [place] [address] 2021-06-07 2021-06-09 Outpatient X [facility] [id number] Univers 23:27:00 13:00:00 ity [facility] 2021-06-07 2021-06-09 Outpatient X [facility]RA[facility] [id number] Univers 23:27:00 13:00:00 ity [facility] 2021-06-07 2021-06-09 Outpatient X [facility]ATRA[facility] [id number] Univers 23:27:00 13:00:00 ity [facility] 2021-06-07 2021-06-09 Outpatient X RATRA, [facility] [id number] Univers 23:27:00 13:00:00 ity [facility] 2021-06-07 2021-06-09 Outpatient X [facility]ATRA, [facility] [id number] Univers 23:27:00 13:00:00 ity [facility] 2021-06-07 2021-06-09 Outpatient X RATRA, [facility] [id number] Univers 23:27:00 13:00:00 ity [facility] 2021-06-07 2021-06-09 Outpatient X RATRA, [facility] DIONISIO [id number] Univers 23:27:00 13:00:00 ity [facility] 2021-06-07 2021-06-09 Outpatient X RATRA, [facility] IDONISIO [id number] Univers 23:27:00 13:00:00 ity [facility] 2021-06-07 2021-06-09 Outpatient X RATRA, [facility] [id number] Univers 23:27:00 13:00:[facility] [place] 2021-06-07 2021-06-09 Outpatient X RATRA, [facility] [id number] Univers 23:27:00 13:00:00 ity [facility] 2021-06-07 2021-06-09 Emergency Pia Watts [facility] 1.2.840. 114 [id number] Univers 23:27:00 13:00:00 Merlin Dalalul LEN[place] 350.1.13.10 ity [facility] 4.2.7.2.686 [facility] [id number] [place] [address] [place] 2021-06-07 2021-06-09 Outpatient X RATRA, [facility] DIONISIO [id number] Univers 23:27:00 13:00:00 [facility] [place] 2021-06-07 2021-06-09 Outpatient X RATRA, [facility] [id number] Univers 23:27:00 13:00:00 [facility] [place] 2021-06-07 2021-06-07 Outpatient X RATRA, [facility] DIONISIO [id number] Univers 23:27:00 23:27:00 [facility] [place] 2021-06-07 2021-06-07 [facility] [id number] Univers 15:40:00 16:38:[facility] 2021-06-07 [id number] Univers 15:40:00 16:38:47 KIM [facility] 2021-06-07 2021-06-07 Office [facility] 1.2.840.114 [id number] Univers 14:43:51 16:38:47 Visit Kim TSANG 350.1.13.10 [facility] 4.2.7.2.686 [facility] [id number] [facility] 231 [facility] 2021-06-07 2021-06-07 [facility] [id number] Univers 15:40:00 15:40:00 KIM ity [facility] 2021-06-07 2021-06-07 Outpatient R ROBERT [facility] [id number] Univers 15:40:00 15:40:00 KIM ity [facility] 2021-06-06 2021-06-06 Telephone Jones [facility] 1.2.840.114 [id number] Univers 00:00:00 00:00:00 Kim TSANG 350.1.13.10 it[place] [id number] Sd dical NAL 044 [facility] 2021-06-06 2021-06-06 Patient Artemio [facility] 1.2.840.114 [id number] Univers 00:00:00 00:00:00 Outreach Nikole TSANG 350.1.13.10 it[place] [id number] Sd dical NAL 231 [facility] 2021-06-06 2021-06-06 Orders Doctor EDMUND 1.2.840.114 [id number] Univers 00:00:00 00:00:00 Only Unassigned, KYLE 350.1.13.10 ity of [place] [facility] 4.2.7.2.686 [place] as [phone] [facility] [address] 2021-06-04 2021-06-04 Office Nicolás LORENZO 1.2.840.114 [id number] Univers 15:02:35 15:25:05 Visit Francesca PEDIATRIC 350.1.13.10 [place] [id number] [facility] PRIMARY [address] [place] CARE CLINIC 2021-06-04 2021-06-04 Outpatient [facility] [id number] Univers 15:00:00 15:25:05 randell MA of JUAN [facility] 2021-06-04 2021-06-04 Outpatient R [facility] [id number] Univers 15:00:00 15:25:05 FRANCESCA ity [facility] 2021-06-04 2021-06-04 Outpatient R ITURRIZAGA- [facility] [id number] Univers 15:00:00 15:25:05 FRANCESCA ity of [facility] 2021-06-04 2021-06-04 Out[facility] [id number] Univers 15:00:00 15:25:05 FRANCESCA ity [facility] 2021-06-04 2021-06-04 Outpatient R ITURRIZAGA- [facility] [id number] Univers 15:00:00 15:25:05 FRANCESCA ity [facility] 2021-06-04 2021-06-04 Outpatient R [facility] [id number] Univers 15:00:00 15:25:05 FRANCESCA ity [facility] 2021-06-04 2021-06-04 Outpatient R ITURRIZAGA- [facility] [id number] Univers 15:00:00 15:25:05 FRANCESCA ity [facility] 2021-06-04 2021-06-04 Outpatient R ITURRIZAGA- [facility] [id number] Univers 15:00:00 15:25:05 FRANCESCA itblaire [facility] 2021-06-04 2021-06-04 Outpatient [facility] [id number] Univers 15:00:00 15:25:05 FARNCESCA, ity [facility] 2021-06-04 2021-06-04 Outpatient R ITURRIZAGA- [facility] [id number] Univers 15:00:00 15:25:05 FRANCESCA ity [facility] 2021-06-04 2021-06-04 Outpatient [facility] [id number] Univers 15:00:00 15:25:05 FRANCESCA ity [facility] 2021-06-04 2021-06-04 Outpatient R [facility] [id number] Univers 15:00:00 15:25:05 FRANCESCArandell SERRANO [facility] 2021-06-04 2021-06-04 [facility] [id number] Univers 15:00:00 15:25:05 randell MA [facility] 2021-06-04 2021-06-04 [facility] [id number] Univers 15:00:00 15:25:05 randell MA [facility] 2021-06-04 2021-06-04 [facility] [id number] Univers 15:00:00 15:25:05 randell MA [facility] 2021-06-04 2021-06-04 [facility] [id number] Univers 15:00:00 15:25:05 randell MA [facility] 2021-06-04 2021-06-04 [facility] [id number] Univers 15:00:00 15:25:05 randell MA [facility] 2021-06-04 2021-06-04 [facility] [id number] Univers 15:00:00 15:00:00 randell MA [facility] 2021-06-04 2021-06-04 [facility] [id number] Univers 15:00:00 15:00:00 FRANCESCA blaire [facility] 2021-06-03 2021-06-03 Transition SRIDHAR Seth 1.2.840.114 [id number] Univers 00:00:00 00:00:00 of Care Page VEGA 350.1.13.10 it y of [place] 4.2.7.2.686 [place] de [place] [id number] [address] 2021-05-30 2021-05-31 Outpatient X ISELA, [facility] DIONISIO [id number] Univers 12:12:00 11:25:00 [facility] 2021-05-30 2021-05-31 Outpatient X JEDILLE, [facility] [id number] Univers 12:12:00 11:25:00 BJ mejias [facility] 2021-05-30 2021-05-31 Emergency Mac Miranda [facility] 1.2.840. 114 [id number] Univers 12:12:00 11:25:00 Bj [facility] 350.1.13.10 ity [facility] 4.2.7.2.686 [facility] [id number] [facility] [address] 2021-05-30 2021-05-31 Outpatient X ISELA [facility] [id number] Univers 12:12:00 11:25:00 BJ mejias [facility] 2021-05-30 2021-05-31 Outpatient X ISELA [facility] [id number] Univers 12:12:00 11:25:00 BJ mejias [facility] 2021-05-30 2021-05-30 [facility] [id number] Univers 10:00:00 10:00:00 randell MA [facility] 2021-05-30 2021-05-30 [facility] [id number] Univers 10:00:00 10:00:00 randell MA [facility] 2021-05-30 2021-05-30 [facility] [id number] Univers 10:00:00 10:00:00 randell MA [facility] 2021-05-30 2021-05-30 [facility] [id number] Univers 10:00:00 10:00:00 randell MA [facility] 2021-05-30 2021-05-30 Out[facility] [id number] Univers 10:00:00 10:00:00 randell MA [facility] 2021-05-30 2021-05-30 [facility] [id number] Univers 10:00:00 10:00:00 randell MA [facility] 2021-05-30 2021-05-30 Outpatient [facility] [id number] Univers 10:00:00 10:00:00 FRANCESCA ity of [facility] 2021-05-30 2021-05-30 Outpatient R [facility] [id number] Univers 10:00:00 10:00:00 FRANCESCA ity of [facility] 2021-05-30 2021-05-30 Outpatient R [facility] [id number] Univers 10:00:00 10:00:00 FRANCESCA ity of [facility] 2021-05-30 2021-05-30 Outpatient R [facility] [id number] Univers 10:00:00 10:00:00 FRANCESCA itblaire of [facility] 2021-05-29 2021-05-29 Telephone [facility] 1.2.840.114 [id number] Univers 00:00:00 00:00:[address] [facility] 350.1.13.10 ity of [place] [id number] [facility][note 3] [address] [place] [address] 2021-05-29 2021-05-29 Orders Doctor EDMUND 1.2.840.114 [id number] Univers 00:00:00 00:00:00 Only Unassigned, KYLE 350.1.13.10 ity of [place] [facility] 4.2.7.2.686 [place] as [id number] [address] 2021-05-28 2021-05-[address] [facility] 1.2.840.114 [id number] Univers 10:27:21 13:13:24 Visit Kim TSANG 350.1.13.10 it[place] [id number] [facility] [address] BUILDING 2021-05-28 2021-05-28 [facility] [id number] Univers 10:20:00 13:13:24 KIM mejias [facility] 2021-05-28 2021-05-28 Outpatient R ROBERT [facility] [id number] Univers 10:20:00 13:13:24 KIMMILAGROS mejias [facility] 2021-05-28 2021-05-28 Outpatient R ROBERT [facility] [id number] Univers 10:20:00 13:13:24 KIMMILAGROS mejias [facility] 2021-05-28 2021-05-28 Outpatient R ROBERT [facility] [id number] Univers 10:20:00 13:13:24 KIMMILAGROS mejias [facility] 2021-05-28 2021-05-28 Outpatient R ROBERT [facility] [id number] Univers 10:20:00 13:13:24 KIM mejias [facility] 2021-05-28 2021-05-28 Outpatient R ROBERT [facility] [id number] Univers 10:20:00 10:20:00 KIMMILAGROS mejias [facility] 2021-05-28 2021-05-28 Telephone Jones, [facility] 1.2.840.114 [id number] Univers 00:00:00 00:00:00 Kim A Kinsman 350.1.13.10 it[place] of [place] [phone] Sd dical nal 044 [facility] 2021-05-28 2021-05-28 [facility] 1.2.840.114 [id number] Univers 00:00:00 00:00:00 Kim A Kinsman 350.1.13.10 it[place] of [place] [id number] Sd dical nal 231 [facility] 2021-05-27 2021-05-27 Transition Sridhar Seth 1.2.840.114 [id number] Univers 00:00:00 00:00:00 of Care Page Cespedes V[place] 350.1.13.10 it y of [place] [id number] [address] 2021-05-22 2021-05-24 Inpatient X ITURRIZAGA- [facility] [id number] Univers 13:49:00 15:38:00 randell MA [facility] 2021-05-22 2021-05-24 Inpatient X ITURRIZAGA- [facility] [id number] Univers 13:49:00 15:38:00 randell MA [facility] 2021-05-22 2021-05-24 Inpatient X ITURRIZAGA- [facility] [id number] Univers 13:49:00 15:38:00 FRANCESCA itblaire of [facility] 2021-05-22 2021-05-24 Inpatient X ITURRIZAGA- [facility] [id number] Univers 13:49:00 15:38:00 randell MA [facility] 2021-05-22 2021-05-24 Inpatient X ITURRIZAGA- [facility] [id number] Univers 13:49:00 15:38:00 randell MA [facility] 2021-05-22 2021-05-24 Inpatient X ITURRIZAGA- [facility] [id number] Univers 13:49:00 15:38:00 randell MA [facility] 2021-05-22 2021-05-24 [facility] Jada Lu [id number] Univers 13:49:00 15:38:00 Marin ObrienfeleciaOstranderJuan serranoy [id number] ity [facility] [id number] Alexander as [phone] [facility] [address] 2021-05-22 2021-05-24 Inpatient X ITURRIZAGA- [facility] [id number] Univers 13:49:00 15:38:00 randell MA [facility] 2021-05-22 2021-05-24 Inpatient X ITURRIZAGA- [facility] [id number] [facility] 13:49:00 15:38:00 randell MA [facility] 2021-05-22 2021-05-24 Inpatient X ITURRIZAGA- [facility] [id number] Univers 13:49:00 15:38:00 randell MA [facility] 2021-05-22 2021-05-24 Inpatient X ITURRIZAGA- [facility] [id number] Univers 13:49:00 15:38:00 randell MA [facility] 2021-05-23 2021-05-23 Outpatient R ITURRIZAGA- [facility] [id number] Univers 10:00:00 10:00:00 randell MA [facility] 2021-05-23 2021-05-23 Outpatient R ITURRIZAGA- [facility] [id number] Univers 10:00:00 10:00:00 randell MA [facility] 2021-05-23 2021-05-23 Outpatient R ITURRIZAGA- [facility] [id number] Univers 10:00:00 10:00:00 FRANCESCArandell SERRANO [facility] 2021-05-23 2021-05-23 Outpatient R ITURRIZAGA- [facility] [id number] Univers 10:00:00 10:00:00 randell MA [facility] 2021-05-23 2021-05-23 Outpatient R ITURRIZAGA- [facility] [id number] Univers 10:00:00 10:00:00 randell MA [facility] 2021-05-23 2021-05-23 Outpatient R ITURRIZAGA- [facility] [id number] Univers 10:00:00 10:00:00 randell MA [facility] 2021-05-23 2021-05-23 Outpatient R ITURRIZAGA- [facility] [id number] Univers 10:00:00 10:00:00 randell MA [facility] 2021-05-23 2021-05-23 [facility] [facility] [id number] Univers 10:00:00 10:00:00 FRANCESCArandell SERRANO [facility] 2021-05-23 2021-05-23 Outpatient R [facility] [id number] Univers 10:00:00 10:00:00 randell MA [facility] 2021-05-23 2021-05-23 [facility] [id number] Univers 10:00: 10:00:00 randell MA [facility] 2021-05-23 2021-05-23 Telephone Robert [facility] 1.2.840.114 [id number] Univers 00:00:00 00:00:00 Kim Tsang 350.1.13.10 ity [facility] 4.2.7.2.686 [place] [id number] [address] 2021-05-21 2021-05-21 [facility] [id number] Univers 13:30:00 13:54:00 randell MA [facility] 2021-05-21 2021-05-21 [facility] [id number] Univers 13:30:00 13:54:00 gary MAy [facility] 2021-05-21 2021-05-21 [facility] [id number] Univers 13:30:00 13:54:00 randell MA [facility] 2021-05-21 2021-05-21 [facility] [id number] Univers 13:30:00 13:54:00 FRANCESCA ity [facility] 2021-05-21 2021-05-21 [facility] [id number] Univers 13:30:00 13:54:00 FRANCESCA ity [facility] 2021-05-21 2021-05-21 [facility] [id number] Univers 13:30:00 13:54:00 FRANCESCA ity [facility] 2021-05-21 2021-05-21 [facility] [id number] Univers 13:30:00 13:54:00 FRANCESCA ity of [facility] 2021-05-21 2021-05-21 Outpatient R [facility] [id number] Univers 13:30:00 13:54:00 FRANCESCA ity of [facility] 2021-05-21 2021-05-21 Outpatient R [facility]AG[facility]- [facility] [id number] Univers 13:30:00 13:54:00 FRANCESCA itblaire of [facility] 2021-05-21 2021-05-21 Outpatient R [facility]- [facility] [id number] Univers 13:30:00 13:54:00 FRANCESCA itblaire of [facility] 2021-05-21 2021-05-21 Outpatient R [facility]- [facility] [id number] Univers 13:30:00 13:54:00 randell MA of [facility] 2021-05-21 2021-05-21 Outpatient R [facility]UR[facility]ZAG[facility]- [facility] [id number] Univers 13:30:00 13:54:00 FRANCESCA itblaire of [facility] 2021-05-21 2021-05-21 Outpatient R [facility]- [facility] [id number] Univers 13:30:00 13:54:00 randell MA of [facility] 2021-05-21 2021-05-21 Outpatient R [facility]- [facility] [id number] Univers 13:30:00 13:54:00 FRANCESCA itblaire of [facility] 2021-05-21 2021-05-21 Outpatient R [facility]- [facility] [id number] Univers 13:30:00 13:54:00 FRANCESCA itblaire of [facility] 2021-05-21 2021-05-21 Office IturrizadrienneYe Lorenzo 1.2.840.114 [id number] Univers 12:29:51 13:54:00 Visit Francesca Pediatric 350.1.13.10 [place] [id number] [address] [facility] 2021-05-21 2021-05-21 [facility] [id number] Univers 13:30:00 13:30:00 randell MA [facility] 2021-05-21 2021-05-21 Transition Sridhar Petersen 1.2.840.114 [id number] Univers 00:00:00 00:00:00 of Eusebio Vega 350.1.13.10 it y of [place] [phone] [facility] [address] 2021-05-17 2021-05-19 Emergency Jairo Jordan [facility] 1.2.840. 114 [id number] Univers 13:49:00 17:56:00 Criss Leyva 350.1.13.10 it[place] of [place] [facility] [phone] [facility] 081 [address] 2021-05-17 2021-05-19 Outpatient X AUTUMN [facility] DIONISIO [id number] Univers 13:49:00 17:56:00 CRISS mejias [facility] 2021-05-17 2021-05-19 Outpatient X AUTUMN [facility] DIONISIO [id number] Univers 13:49:00 17:56:00 CRISS mejias [facility] 2021-05-16 2021-05-16 [facility] [id number] Univers 10:00:00 10:00:00 randell MA [facility] 2021-05-16 2021-05-16 [facility] [id number] Univers 10:00:00 10:00:00 randell MA [facility] 2021-05-16 2021-05-16 [facility] [id number] Univers 10:00:00 10:00:00 randell MA [facility] 2021-05-16 2021-05-16 [facility] [id number] Univers 10:00:00 10:00:00 randell MA [facility] 2021-05-16 2021-05-16 Outpatient R [facility]- [facility] [id number] Univers 10:00:00 10:00:00 FRANCESCA, ity [facility] 2021-05-16 2021-05-16 [facility] [id number] Univers 10:00:00 10:00:00 FRANCESCArandell SERRANO [facility] 2021-05-16 2021-05-16 Outpatient R [facility]AG[facility]- [facility] [id number] Univers 10:00:00 10:00:00 FRANCESCA, ity [facility] 2021-05-16 2021-05-16 Outpatient R [facility]AG[facility]- [facility] [id number] Univers 10:00:00 10:00:00 FRANCESCA, ity [facility] 2021-05-16 2021-05-16 Outpatient R ITURRIZAG[facility]- [facility] [id number] Univers 10:00:00 10:00:00 FRANCESCA, ity [facility] 2021-05-16 2021-05-16 Outpatient R ITURRIZAGA- [facility] [id number] Univers 10:00:00 10:00:00 FRANCESCArandell SERRANO [facility] 2021-05-16 2021-05-16 [facility] [id number] Univers 10:00:00 10:00:00 FRANCESCArandell [facility] 2021-05-16 2021-05-16 Outpatient R [facility]AG[facility]- [facility] [id number] Univers 10:00:00 10:00:00 FRANCESCA, ity [facility] 2021-05-16 2021-05-16 Out[facility] [id number] Univers 10:00:00 10:00:00 FRANCESCA, ity [facility] 2021-05-16 2021-05-16 Outpatient [facility] [id number] Univers 10:00:00 10:00:00 FRANCESCAgaryy [facility] 2021-05-14 2021-05-14 Outpatient R ITDARYL- [facility] [id number] Univers 14:30:00 14:30:00 FRANCESCAgaryy [facility] 2021-05-13 2021-05-[address] [facility] 1.2.840.114 [id number] Univers 00:00:00 00:00:00 Kim Tsang 350.1.13.10 it[place] [id number] Sd dicri nal 044 [facility] 2021-05-13 2021-05-13 Transition Sridhar Seth 1.2.840.114 [id number] Univers 00:00:00 00:00:00 of Eusebio eVga 350.1.13.10 it y of [place] [id number] [facility] [address] [place] 2021-05-13 2021-05-[address] [facility] 1.2.840.114 [id number] Univers 00:00:00 00:00:00 Kim Tsang 350.1.13.10 it[place] of [place] [phone] [facility] nal 044 [facility] 2021-05-07 2021-05-10 [facility] Pia Watts [facility] 1.2.840.1 [id number] Univers 09:37:00 18:14:00 Encounter Oh Espinoza 350.1.13.10 it[place] [facility] [place] [id number] [facility] 0[address] 2021-05-07 2021-05-10 Inpatient X JORDIN [facility] DIONISIO [id number] Univers 09:37:00 18:14:00 [place] mejias [facility] 2021-05-07 2021-05-10 Inpatient X JORDIN [facility] DIONISIO [id number] Univers 09:37:00 18:14:00 [place] mejias [facility] 2021-05-07 2021-05-10 Inpatient X JORDIN [facility] DIONISIO [id number] Univers 09:37:00 18:14:00 [place] mejias [facility] 2021-05-07 2021-05-10 Inpatient X JORDIN [facility] DIONISIO [id number] Univers 09:37:00 18:14:00 [place] mejias [facility] 2021-05-09 2021-05-09 Outpatient R ITURRIZAGA- [facility] [id number] Univers 10:30:00 10:30:00 FRANCESCArandell [facility] 2021-05-09 2021-05-09 Outpatient R ITURRIZAGA- [facility] [id number] Univers 10:30:00 10:30:00 gary MAblaire [facility] 2021-05-09 2021-05-09 Outpatient R ITURRIZAGA- [facility] [id number] Univers 10:30:00 10:30:00 FRANCESCA randell [facility] 2021-05-09 2021-05-09 Outpatient R ITURRIZAGA- [facility] [id number] Univers 10:30:00 10:30:00 FRANCESCA randell [facility] 2021-05-09 2021-05-09 Outpatient R ITURRIZAGA- [facility] [id number] Univers 10:30:00 10:30:00 FRANCESCArandell [facility] 2021-05-09 2021-05-09 Outpatient R ITURRIZAGA- [facility] [id number] Univers 10:30:00 10:30:00 FRANCESCA garyy [facility] 2021-05-09 2021-05-09 Outpatient R ITURRIZAGA- [facility] [id number] Univers 10:30:00 10:30:00 FRANCESCA randell [facility] 2021-05-09 2021-05-09 Outpatient R ITURRIZAGA- [facility] [id number] Univers 10:30:00 10:30:00 FRANCESCA garyblaire [facility] 2021-05-09 2021-05-09 Outpatient R ITURRIZAGA- [facility] [id number] Univers 10:30:00 10:30:00 FRANCESCA, ity of [facility] 2021-05-09 2021-05-09 Outpatient R [facility] [id number] Univers 10:30:00 10:30:00 FRANCESCA, ity of [facility] 2021-05-07 2021-05-07 Outpatient R [facility] [id number] Univers 14:30:00 14:30:00 FRANCESCA, ity of [facility] 2021-05-07 2021-05-07 Telephone [facility] 1.2.840.114 [id number] Univers 00:00:00 00:00:[address] [facility] 350.1.13.10 ity of [place] [phone] [facility][note 3] [address] Office Building 2021-05-07 2021-05-07 Transition Sridhar Seth 1.2.840.114 [id number] Univers 00:00:00 00:00:00 of Care Page Vega 350.1.13.10 it y of [place] [phone] [facility] [address] 2021-05-02 2021-05-05 Hospital Joaquin Debby [facility] 1.2.840.11 [id number] Univers 12:01:00 15:40:00 Encounter Bj Weiss 350.1.13.10 it[place] [facility] [phone] [facility] 0[address] 2021-05-02 2021-05-02 Nurse 1, Adc Infusion Nurse [facility] 1.2. 840.114 [id number] Univers 10:05:35 10:20:35 Visit Juan Hernandez 3 50.1.13.10 it[place] of [place] [id number] [facility] 053 [address] 2021-05-02 2021-05-02 Outpatient R ITURRIZAGA- [facility] [id number] Univers 10:00:00 10:00:00 randell MA [facility] 2021-05-02 2021-05-02 Outpatient R ITURRIZAGA- [facility] [id number] Univers 10:00:00 10:00:00 randell MA [facility] 2021-05-02 2021-05-02 Outpatient R ITURRIZAGA- [facility] [id number] Univers 10:00:00 10:00:00 randell MA [facility] 2021-05-02 2021-05-02 Outpatient R ITURRIZAGA- [facility] [id number] Univers 10:00:00 10:00:00 randell MA [facility] 2021-05-02 2021-05-02 Outpatient R ITURRIZAGA- [facility] [id number] Univers 10:00:00 10:00:00 randell MA [facility] 2021-05-02 2021-05-02 Outpatient R ITURRIZAGA- [facility] [id number] Univers 10:00:00 10:00:00 randell MA [facility] 2021-05-02 2021-05-02 Outpatient R ITURRIZAGA- [facility] [id number] Univers 10:00:00 10:00:00 randell MA [facility] 2021-05-02 2021-05-02 Outpatient R ITURRIZAGA- [facility] [id number] Univers 10:00:00 10:00:00 randell MA [facility] 2021-05-02 2021-05-02 Out[facility] [id number] Univers 10:00:00 10:00:00 randell MA [facility] 2021-05-02 2021-05-02 Outpatient [facility] [id number] Univers 10:00:00 10:00:00 randell MA [facility] 2021-05-02 2021-05-02 Outpatient R ITURRIZAGA- [facility] [id number] Univers 10:00:00 10:00:00 randell MA [facility] 2021-05-02 2021-05-02 [facility] 1.2.840.11 [id number] [facility] [place] 00:00:00 00:00:00 Francesca [facility] 350.1.13.10 ity [facility] 4.2.7.2.686 [facility] [phone] [address] 2021-04-26 2021-04-26 [facility] [id number] Univers 14:00:00 14:53:04 FRANCESCArandell SERRANO [facility] 2021-04-26 2021-04-26 [facility] [id number] Univers 14:00:00 14:53:04 FRANCESCArandell [facility] 2021-04-26 2021-04-26 [facility] [id number] Univers 14:00:00 14:53:04 FRANCESCA, blaire [facility] 2021-04-26 2021-04-26 [facility] [id number] Univers 14:00:00 14:53:04 FRANCESCArandell SERRANO [facility] 2021-04-26 2021-04-26 [facility] [id number] Univers 14:00:00 14:53:04 FRANCESCA, blaire [facility] 2021-04-26 2021-04-26 [facility] [id number] Univers 14:00:00 14:53:04 FRANCESCA, blaire [facility] 2021-04-26 2021-04-26 [facility] [id number] Univers 14:00:00 14:00:00 FRANCESCA, blaire [facility] 2021-04-26 2021-04-26 Nurse Nurse, Darío Lorenzo 1.2.84 0.114 [id number] Univers 13:07:20 13:27:20 Visit DelYeFrancescaJuan serrano Pediatric 350.1.13.10 ity of [place] [id number] [facility] Primary [address] [facility] Care [facility] 2021-04-24 2021-04-24 Telephone Jose Alejandroyamiletkeshawn [facility] 1.2.840.114 [id number] Univers 00:00:00 00:00:00 Maria E Tsang 350.1.13.10 i ty of [place] [facility] [phone] Sd dicnell [facility] 044 [facility] 2021-04-23 2021-04-23 Outpatient R [facility] [id number] Univers 14:30:00 14:56:56 FRANCESCA, ity [facility] 2021-04-23 2021-04-23 Outpatient R [facility] [id number] Univers 14:30:00 14:56:56 FRANCESCA, itblaire [facility] 2021-04-23 2021-04-23 [facility] 1.2.840.114 [id number] Univers 14:27:07 14:56:56 Visit Francesca Pediatric 350.1.13.10 ity of [place] and 4.2.[place].2.[place] [id number] [facility] 059 [facility] 2021-04-23 2021-04-23 Outpatient R [facility] [id number] Univers 14:30:00 14:30:00 FRANCESCA, itblaire [facility] 2021-04-22 2021-04-22 Emergency JuhiDENBO, UTMARIANNE 1.2.840.114 [id number] Univers 10:58:00 14:18:00 Mary Tsang 350.1.13.10 it[place] of [place] [facility] [id number] [facility] 0[address] 2021-04-22 2021-04-22 Emergency [facility] [id number] Univers 10:58:00 14:18:00 MARY mejias [facility] 2021-04-22 2021-04-22 Emergency X JUHI, [facility] ERT [id number] Univers 10:58:00 14:18:00 MARY mejias [facility] 2021-04-22 2021-04-22 [facility] 1.2.840.11 [id number] Univers 00:00:00 00:00:00 Blaire Ma HEALTH 350.1.13.10 ity of [place] [facility] 4[place]2.[place].2.[place] [id number] [address] 2021-04-22 2021-04-22 [facility] 1.2.840.11 [id number] Univers 00:00:00 00:00:00 Blaire Ma HEALTH 350.1.13.10 ity of [facility] CLINICS 4[place]2.[place].2.[place] [id number] [address] 2021-04-20 2021-04-20 Orders Doctor EDMUND 1.2.840.114 [id number] Univers 00:00:00 00:00:00 Only Unassigned, KYLE 350.1.13.10 ity of [place] [facility] 4.2.7.2.686 [place] as [phone] [address] 2021-04-18 2021-04-18 Orders Doctor EDMUND 1.2.840.114 [id number] Univers 00:00:00 00:00:00 Only Unassigned, KYLE 350.1.13.10 ity of [place] HOSPITAL 4.2.7.2.686 [place] as [phone] [address] 2021-04-17 2021-04-17 [facility] 1.2.840.11 [id number] Univers 00:00:00 00:00:00 Blaire Ma HEALTH 350.1.13.10 ity of [place] [facility] 4.2.7.2.[place] [id number] [address] 2021-04-16 2021-04-16 [facility] [id number] Univers 16:30:00 16:30:00 FRANCESCA ity of [facility] 2021-04-16 2021-04-16 Outpatient R [facility] [id number] Univers 16:30:00 16:30:00 FRANCESCA, ity of [facility] 2021-04-16 2021-04-16 Outpatient R [facility] [id number] Univers 16:30:00 16:30:00 FRANCESCA ity of [facility] 2021-04-16 2021-04-16 [facility] [id number] Univers 16:30:00 16:30:00 FRANCESCA ity of [facility] 2021-04-16 2021-04-16 Outpatient R [facility] [id number] Univers 16:30:00 16:30:00 FRANCESCA ity of [facility] 2021-04-16 2021-04-16 Telephone [facility] 1.2.840.11 [id number] Univers 00:00:00 00:00:00 [facility] 350.1.13.10 ity of [place] [facility] 4.2.7.2.[place] [id number] [facility] 0[address] 2021-04-15 2021-04-15 Orders Doctor SHAFFER 1.2.840.114 [id number] Univers 00:00:00 00:00:00 Only Unassigned, KYLE 350.1.13.10 ity of [place] [facility] 4.2.7.2.686 [place] as [id number] [facility] 009 [address] 2021-04-12 2021-04-12 Telephone Jones [facility] 1.2.840.114 [id number] Univers 00:00:00 00:00:00 Kim Tsang 350.1.13.10 it[place] of [place] [id number] [facility] 044 [facility] 2021-04-12 2021-04-12 Telephone Robert [facility] 1.2.840.114 [id number] Univers 00:00:00 00:00:00 Kim Tsang 350.1.13.10 ity of [place] 4[place].2.[place] [id number] [place] [address] Branch Building 2021-04-11 2021-04-[address] [facility] 1.2.840.114 [id number] Univers 00:00:00 00:00:00 Kimmilagros Tsang 350.1.13.10 ity of [place] 4.[place].2.[place] [id number] [place] [address] Branch Building 2021-04-11 2021-04-11 Telephone [facility] 1.2.840.114 [id number] Univers 00:00:00 00:00:00 Francesca [facility] 350.1.13.10 [facility] 4.2.7.2.686 [place] [id number] [place] [address] Branch Office Building 2021-04-11 2021-04-[address] [facility] 1.2.840.114 [id number] Univers 00:00:00 00:00:00 Kim Tsang 350.1.13.10 ity of [place] 4.[place].2.[place] [phone] [place] [address] [address] [facility] 2021-04-09 2021-04-09 [facility] 006 [id number] Univers 14:30:00 14:54:06 FRANCESCA ity [facility] 2021-04-09 2021-04-09 [facility] [id number] Univers 14:30:00 14:54:06 FRANCESCA ity [facility] 2021-04-09 2021-04-09 [facility] [id number] Univers 14:30:00 14:54:06 FRANCESCA ity [facility] 2021-04-09 2021-04-09 [facility] [id number] Univers 14:30:00 14:54:06 FRANCESCA ity of [facility] 2021-04-09 2021-04-09 [facility] [id number] Univers 14:30:00 14:54:06 FRANCESCA ity of [facility] 2021-04-09 2021-04-09 [facility] [id number] Univers 14:30:00 14:54:06 FRANCESCA, ity of [facility] 2021-04-09 2021-04-09 Out[facility] [id number] Univers 14:30:00 14:54:06 FRANCESCA, itblaire of [facility] 2021-04-09 2021-04-09 Out[facility] [id number] Univers 14:30:00 14:54:06 FRANCESCArandell SERRANO of [facility] 2021-04-09 2021-04-09 Outpatient [facility] [id number] Univers 14:30:00 14:54:06 FRANCESCArandell SERRANO of [facility] 2021-04-09 2021-04-09 Out[facility] [id number] Univers 14:30:00 14:54:06 FRANCESCA itblaire of [facility] 2021-04-09 2021-04-09 Office Nicolás Lorenzo 1.2.840.114 [id number] Univers 13:56:45 14:54:06 Visit Francesca, Pediatric 350.1.13.10 ity of [place] [id number] [place] [address] Branch Care Clinic 2021-04-09 2021-04-09 Outpatient [facility] [id number] Univers 14:30:00 14:30:00 FRANCESCA, itblaire [facility] 2021-04-09 2021-04-09 Telephone Itfelecia Lorenzo 1.2.840.114 [id number] Univers 00:00:00 00:00:00 Francesca, Pediatric 350.1.13.10 [place]y of [place] [id number] [facility] Primary 059 Branch Care Clinic 2021-04-09 2021-04-09 Telephone [facility] 1.2.840.114 [id number] Univers 00:00:00 00:00:00 Francesca Health 350.1.13.10 ity of [place] [id number] [facility][note 3] [address] Office Building 2021-04-05 2021-04-05 Transition Sridhar Seth 1.2.840.114 [id number] Univers 00:00:00 00:00:00 of Care Page Coy Vgea 350.1.13.10 it y of [place] 4.[place].2.[place] [id number] [facility] [address] 2021-03-11 2021-04-[address] [facility] [id number] Univers 20:29:00 18:25:00 FRANCESCA, ity of [facility] 2021-03-11 2021-04-04 Hospital Mac Miranda 1.2.840.1 [id number] Univers 20:29:00 18:25:00 Encounter Gino Flores 350.1.13.1 0 [facility] 4.2 .7.2.686 [place] [phone] [place] [address] Branch 2021-03-11 2021-04-04 [id number] Univers 20:29:00 18:25:00 FRANCESCA, ity of [facility] 2021-03-11 2021-04-04 [id number] Univers 20:29:00 18:25:00 FRANCESCA, ity of [facility] 2021-03-11 2021-04-04 In[facility] [id number] Univers 20:29:00 18:25:00 FRANCESCA ity of [facility] 2021-03-11 2021-04-[address] [facility] [id number] Univers 20:29:00 18:25:00 FRANCESCA, ity of [facility] 2021-03-11 2021-04-[address] [facility] [id number] Univers 20:29:00 18:25:00 FRANCESCA, ity of [facility] 2021-03-11 2021-04-[address] [facility] [id number] Univers 20:29:00 18:25:00 VAN HORN, ity of [facility] 2021-04-03 2021-04-03 Surgery Ziggy [facility] [id number] Univers 10:45:00 11:30:00 Fran GARCIA 350.1.13.10 ity of SCIENCES 4.2.7.2.686 Alexander as BLDG [phone] [address] 2021-04-03 2021-04-03 Telephone [facility] [id number] Univers 00:00:00 00:00:00 David Tsang 350.1.13.10 [place] [phone] [place]ical nal 059 [facility] 2021-04-02 2021-04-02 Committee [facility] [place] 1..840.114 [id number] Univers 00:00:00 00:00:00 Review Jackelyn R SPECIALTY 350.1.13.10 [place] [phone] [place] dical VICTORY 189 [facility] 2021-04-02 2021-04-02 Letter [facility] [place] [id number] [id number] Univers 00:00:00 00:00:00 (Out) Jackelyn R SPECIALTY 350.1.13.10 [id number] [phone] [place] wagner [place] 189 [facility] 2021-04-02 2021-04-02 Telephone Nicolás Lorenzo 1.2.840.114 [id number] Univers 00:00:00 00:00:00 Francesca, Pediatric 350.1.13.10 [place] [phone] [facility] Primary 059 [facility] 2021-03-26 2021-03-26 Outpatient R ELENI [facility] [id number] Univers 14:20:00 14:20:00 KELLY ity of [facility] 2021-03-21 2021-03-21 [facility] [facility], 1.2.840.1 [id number] Univers 12:26:00 23:59:00 Encounter Hallie 64521.1.1 it y of [place] 3.104.2.7 [place] .3.698219 Medica l .8 [place] 2021-03-21 2021-03-21 Telephone Standefer, 1.2.840.5 [id number] Univers 00:00:00 00:00:00 Jackelyn Miller 60648.1.1 ity of 3.104.2.7 [place] .3.381985 Medica l .8 [place] 2021-03-21 2021-03-21 Travel 1.2.840.1 1.2.296.435 [id number] Univers 00:00:00 00:00:00 04977.1.1 350.1.13.10 ity of 3.104.2.7 [place].3.698 [place] .3.529122 084.8 Medica l .8 [place] 2021-03-12 2021-03-12 Outpatient R [facility] [id number] Univers 13:30:00 13:30:00 ity of [facility] 2021-03-11 2021-03-11 Travel 1.2.840.1 1.2.955.526 [id number] Univers 00:00:00 00:00:00 67406.1.1 350.1.13.10 ity of 3.104.2.7 4.[place].3.698 [place] .3.851217 084.8 Medica l 8 [place] 2021-03-04 2021-03-04 Outpatient Paul IVANA [facility] [id number] Univers 07:30:00 07:30:00 ADRIANNA blaire [facility] 2021-03-04 2021-03-04 Outpatient Paul IVANA [facility] [id number] Univers 07:30:00 07:30:00 ADRIANNA blaire [facility] 2021-03-04 2021-03-04 Outpatient Paul FANG [facility] [id number] Univers 07:30:00 07:30:00 ADRIANNA [facility] 2021-03-04 2021-03-04 Outpatient Paul FANG [facility] [id number] Univers 07:30:00 07:30:00 ADRIANNA blaire [facility] 2021-03-04 2021-03-04 Outpatient Paul FANG [facility] [id number] Univers 07:30:00 07:30:00 ADRIANNA [facility] 2021-03-04 2021-03-04 Outpatient Paul FANG [facility] [id number] Univers 07:30:00 07:30:00 [facility] 2021-02-28 2021-03-01 Inpatient EM LESLIE Juan INTE.02 [id number] [facility] 16:19:00 15:10:00 Stephan 83 [facility] 2021-02-28 2021-02-28 Outpatient ARCHIE Juan LABO [id number] [facility] 08:44:00 08:44:00 Stephan 34 [facility] 2021-02-27 2021-02-27 Transition Sridhar Seth 1.2.840.114 [id number] 00:00:00 00:00:00 of Eusebio Vega 350.1.13.10 Araseli 4.2.7.2.686 [id number] 2021-02-27 2021-02-27 Transition Rolo 1.2.840.7 [id number] Univers 00:00:00 00:00:00 of Care Page B 27891.1.1 ity of 3.104.2.7 [place] .3.536381 Medica l .8 [place] 2021-02-26 2021-02-26 Transition Sridhar Seth 1.2.840.114 [id number] 00:00:00 00:00:00 of Care Page B Vega 350.1.13.10 Marianna 4.2.7.2.686 [id number] [facility] 2021-02-26 2021-02-26 Transition Rolo, 1.2.840.5 [id number] Univers 00:00:00 00:00:00 of Care Page B 23684.1.1 ity of 3.104.2.7 [place] .3.217209 Medica l .8 [place] 2021-02-25 2021-02-25 [facility] 1.2.840.114 [id number] 00:00:00 00:00:00 Ayush Tsang 350.1.13.10 Beulah 4.2.7.2.686 [facility] [id number] formerly [facility] 092 [facility] 2021-02-25 2021-02-25 Reftrini Bee, 1.2.840.9 [id number] Univers 00:00:00 00:00:00 Ayush Chopra 49429.1.1 ity of 3.104.2.7 [place] .3.362977 Medica l .8 [place] 2021-02-22 2021-02-24 Emergency [facility] 1.2.129.367 [id number] 20:27:00 15:41:00 Doris Tsang 350.1.13.10 [place] 4.2.7.2.686 [facility] [id number] [facility] 2021-02-22 2021-02-24 Emergency Doris Lindsey 1.2.840.1 [id number] [facility] 20:27:00 15:41:00 Estefani Lange 23307.1.1 ity of 3.104.2.7 [place] .3.605829 Medica l .8 [place] 2021-02-22 2021-02-24 Outpatient X CRISTIN [facility] DIONISIO [id number] Univers 20:27:00 15:41:00 DORIS mejias [facility] 2021-02-22 2021-02-22 [facility] [id number] Univers 14:50:00 14:50:00 ADRIANNA itblaire [facility] 2021-02-22 2021-02-22 Travel 1.2.840.1 1.2.307.078 [id number] Univers 00:00:00 00:00:00 98346.1.1 350.1.13.10 ity of 3.104.2.7 4.2.7.3.698 [place] .3.031210 084.8 Medica l .8 [place] 2021-02-21 2021-02-21 Emergency Juhi, 1.2.840.0 [id number] Univers 12:41:00 15:15:00 Mary Augustine 75392.1.1 ity of 3.104.2.7 [place] .3.735534 Medica l .8 [place] 2021-02-21 2021-02-21 Emergency [facility] [id number] Univers 12:41:00 15:15:00 MARY mejias [facility] 2021-02-21 2021-02-21 Travel 1.2.840.1 1.2.417.572 [id number] Univers 00:00:00 00:00:00 12922.1.1 350.1.13.10 ity of 3.104.2.7 4.2.7.3.698 [place] .3.048487 084.8 Medica l .8 [place] 2021-02-21 2021-02-21 Transition Seth, 1.2.840.0 [id number] Univers 00:00:00 00:00:00 of Eusebio Cespedes 78040.1.1 ity of 3.104.2.7 [place] .3.470051 Medica l .8 [place] 2021-02-20 2021-02-20 Transition Seth, 1.2.840.7 [id number] Univers 00:00:00 00:00:00 of Care Page Cespedes 39188.1.1 ity of 3.104.2.7 [place] .3.012656 Medica l .8 [place] 2021-02-18 2021-02-19 Emergency Pia Watts 1.2.840.5 [id number] Univers 18:41:00 16:16:00 Criss Leyva 35240.1.1 ity of 3.104.2.7 [place] .3.095893 Medica l .8 [place] 2021-02-18 2021-02-19 Outpatient X [facility] [id number] Univers 18:41:00 16:16:00 CRISS ity of [facility] 2021-02-18 2021-02-18 Hospital Jones, 1.2.840.2 [id number] Univers 12:57:37 18:40:00 Encounter Kim Ordaz 78924.1.1 ity of 3.104.2.7 [place] .3.879154 Medica l .8 [place] 2021-02-18 2021-02-18 [facility] [id number] Univers 00:00:00 00:00:00 KIM mejias of [facility] 2021-02-18 2021-02-18 Travel 1.2.840.1 1.2.187.941 [id number] Univers 00:00:00 00:00:00 40782.1.1 350.1.13.10 ity of 3.104.2.7 4.[place].7.3.698 [place] .3.850885 084.8 Medica l .8 [place] 2021-02-15 2021-02-15 Orders Doctor 1.2.840.3 [id number] Univers 00:00:00 00:00:00 Only Unassigned, 53981.1.1 ity of [place] 3.104.2.7 [place] .3.475966 Medica l .8 [place] 2021-02-13 2021-02-13 Patient Artemio [facility] 1.2.840.114 [id number] 00:00:00 00:00:00 Outreach Nikole Saba Lenore 350.1.13.10 [place] 4.2.7.2.686 Proftacoio [id number] formerly [facility] 231 [facility] 2021-02-13 2021-02-13 Patient Artemio, 1.2.840.2 [id number] Univers 00:00:00 00:00:00 Outreach Nikole Saba 19509.1.1 ity of 3.104.2.7 [place] .3.326453 Medica l .8 [place] 2021-02-07 2021-02-07 [facility] [id number] Univers 08:20:00 09:47:54 KIM mejias of [facility] 2021-02-07 2021-02-07 Office Robert, 1.2.840.1 [id number] Univers 08:08:07 09:47:54 Visit Kim Ordaz 34527.1.1 ity of 3.104.2.7 [place] .3.320438 Medica l .8 [place] 2021-02-07 2021-02-07 [facility] [id number] Univers 08:20:00 08:20:00 KIM mejias of [facility] 2021-02-07 2021-02-07 Orders Doctor 1.2.840.0 [id number] Univers 00:00:00 00:00:00 Only Unassigned, 43976.1.1 ity of [place] 3.104.2.7 [place] .3.391346 Medica l .8 [place] 2021-02-07 2021-02-07 Travel 1.2.840.1 1.2.169.093 [id number] Univers 00:00:00 00:00:00 25139.1.1 350.1.13.10 ity of 3.104.2.7 4.2.7.3.698 Te [facility] .3.837394 084.8 Medica l .8 [place] 2021-02-04 2021-02-06 Inpatient EM Akram, [facility] INTE.02 [id number] [facility] 20:15:00 16:26:00 Jamshaid 00 [facility] 2021-02-04 2021-02-04 Emergency EM Nasim, [facility] [id number] [facility] 12:54:00 19:20:00 Isac yeboah [facility] 2021-02-01 2021-02-01 Telephone Jones, 1.2.840.0 [id number] Univers 00:00:00 00:00:00 Kim Ordaz 36615.1.1 ity of 3.104.2.7 [place] .3.020957 Medica l .8 [place] 2021-01-23 2021-01-23 Outpatient R WILBERTO, [facility] [id number] Univers 15:00:00 15:00:00 SENDIL ity [facility] 2021-01-23 2021-01-23 Outpatient R WILBERTO, [facility] [id number] Univers 15:00:00 15:00:00 SENDIL ity [facility] 2021-01-23 2021-01-23 Outpatient R WILBERTO, [facility] [id number] Univers 15:00:00 15:00:00 SENDIL ity [facility] 2021-01-23 2021-01-23 Outpatient R WILBERTO, [facility] [id number] Univers 15:00:00 15:00:00 SENDIL ity [facility] 2021-01-23 2021-01-23 Outpatient R WILBERTO, [facility] [id number] Univers 15:00:00 15:00:00 SENDIL ity [facility] 2021-01-23 2021-01-23 Outpatient R WILBERTO, [facility] [id number] Univers 15:00:00 15:00:00 SENDIL ity [facility] 2021-01-22 2021-01-22 Rolly Bee, 1.2.840.1 [id number] Univers 00:00:00 00:00:00 Ayush Chopra 45014.1.1 ity of 3.104.2.7 [place] .3.435700 Medica l .8 [place] 2021-01-18 2021-01-18 Emergency Juhi, 1.2.840.5 [id number] Univers 13:54:00 17:11:00 Mary Augustine 41356.1.1 ity of 3.104.2.7 [place] .3.541023 Medica l .8 [place] 2021-01-18 2021-01-18 Emergency X JUHI, [facility] ERT [id number] Univers 13:54:00 17:11:00 MARY ity of [facility] 2021-01-18 2021-01-18 Travel 1.2.840.1 1.2.095.983 [id number] Univers 00:00:00 00:00:00 89474.1.1 350.1.13.10 ity of 3.104.2.7 4.2.7.3.698 [place] .3.784733 084.8 Medica l .8 [place] 2021-01-10 2021-01-10 Office Wilberto, 1.2.840.0 [id number] Univers 14:15:33 14:57:15 Visit David Sullivan 64672.1.1 ity of 3.104.2.7 [place] .3.033385 Medica l .8 [place] 2021-01-10 2021-01-10 Outpatient R WILBERTO [facility] [id number] Univers 14:00:00 14:57:15 SENDIL ity of [facility] 2021-01-10 2021-01-10 Outpatient R [facility] [id number] Univers 09:00:00 09:00:00 ity of [facility] 2021-01-10 2021-01-10 Orders Doctor 1.2.840.1 [id number] Univers 00:00:00 00:00:00 Only Unassigned, 27771.1.1 ity of [place] 3.104.2.7 [place] .3.630519 Medica l .8 [place] 2021-01-10 2021-01-10 Travel 1.2.840.1 1.2.725.739 [id number] Univers 00:00:00 00:00:00 27291.1.1 350.1.13.10 ity of 3.104.2.7 4.2.7.3.698 [place] .3.589433 084.8 Medica l 8 [place] 2021-01-08 2021-01-08 Outpatient R NATALIE KLEINDCWandy [facility] [id number] Univers 19:30:00 19:30:00 ATANATALIE ARZOLADCWandy [facility] 2021-01-08 2021-01-08 [facility] [id number] Univers 19:30:00 19:30:00 ATANATALIE ARZOLADCWandy [facility] 2021-01-08 2021-01-08 Outpatient R BARTOLOME [facility] [id number] Univers 19:30:00 19:30:00 [facility] 2021-01-08 2021-01-08 Outpatient R BARTOLOME [facility] [id number] Univers 19:30:00 19:30:00 [facility]A [facility] 2021-01-08 2021-01-08 Outpatient R BARTOLOME [facility] [id number] Univers 19:30:00 19:30:[address] [facility] 2021-01-08 2021-01-08 Outpatient R BARTOLOME [facility] [id number] Univers 19:30:00 19:30:[address] [facility] 2021-01-08 2021-01-08 Outpatient R [facility] [id number] Univers 11:15:00 11:15:00 [facility] 2021-01-03 2021-01-07 Inpatient EM Tyler, EVER INTE.02 [id number] [facility] 15:04:00 14:00:[address] 2021-01-04 2021-01-04 Outpatient R [facility] [id number] Univers 11:45:00 11:45:00 [facility] 2021-01-04 2021-01-04 Telephone Amado 1.2.840.4 [id number] Univers 00:00:00 00:00:00 Maria E 29098.1.1 ity of 3.104.2.7 [place] .3.438615 Medica l .8 [place] 2021-01-03 2021-01-03 Outpatient ARCHIE Scott [id number] [facility] 21:53:00 21:53:[address] 2021-01-03 2021-01-03 Outpatient R AMADO, [facility] [id number] Univers 09:40:00 10:43:02 MARIA E mejias [facility] 2021-01-03 2021-01-03 Telemedici Amado, 1.2.840.8 [id number] Univers 09:40:00 10:00:00 ne Visit Maria E 68696.1.1 ity of 3.104.2.7 [place] .3.888925 Medica l .8 [place] 2021-01-03 2021-01-03 Outpatient R AMADO [facility] [id number] Univers 09:40:00 09:40:00 MARIA E mejias [facility] 2021-01-03 2021-01-03 [facility] [id number] Univers 09:40:00 09:40:00 MARIA E [facility] 2021-01-03 2021-01-03 Telephone Robert, 1.2.840.0 [id number] Univers 00:00:00 00:00:00 Kim Ordaz 56351.1.1 ity of 3.104.2.7 [place] .3.319303 Medica l .8 [place] 2021-01-02 2021-01-02 Outpatient R AMADO [facility] [id number] Univers 16:20:00 16:20:00 MARIA E mejias [facility] 2021-01-02 2021-01-02 [facility] [id number] Univers 16:20:00 16:20:00 MARIA E mejias [facility] 2021-01-02 2021-01-02 [facility] [id number] Univers 16:20:00 16:20:00 MARIA E mejias [facility] 2021-01-02 2021-01-02 Outpatient R AMADO [facility] [id number] Univers 16:20:00 16:20:00 MARIA E mejias [facility] 2021-01-02 2021-01-02 [facility] [id number] Univers 16:20:00 16:20:00 MARIA E mejias [facility] 2021-01-02 2021-01-02 Outpatient R AMADO [facility] [id number] Univers 16:20:00 16:20:00 MARIA E blaire [facility] 2021-01-02 2021-01-02 Orders Doctor 1.2.840.7 [id number] Univers 00:00:00 00:00:00 Only Unassigned, 20849.1.1 ity of [place] 3.104.2.7 [place] .3.549295 Medica l .[address] [place] [address] 2021-01-01 2021-01-01 Emergency Juhi, 1.2.840.3 [id number] Univers 13:47:00 15:39:00 Mary Augustine 72330.1.1 ity of 3.104.2.7 [place] .3.111585 Medica l .8 [place] 2021-01-01 2021-01-01 [facility] [id number] Univers 11:30:00 11:30:00 SENDIL itblaire [facility] 2021-01-01 2021-01-01 Emergency Juhi, 1.2.840.3 [id number] Univers 08:41:00 11:14:00 Mary Augustine 06286.1.1 ity of 3.104.2.7 [place] .3.890336 Medica l .[address] [place] [address] 2021-01-01 2021-01-01 [facility] [id number] Univers 08:00:00 09:20:28 MILAN mejias o darian [facility] 2021-01-01 2021-01-01 Outpatient Paul SAMUELS [facility] [id number] Univers 08:00:00 09:20:28 MILAN farmer [facility] 2021-01-01 2021-01-01 Outpatient Paul SAMUELS [facility] [id number] Univers 08:00:00 09:20:28 MILAN mejias o darian [facility] 2021-01-01 2021-01-01 Outpatient Paul SAMUELS [facility] [id number] Univers 08:00:00 09:20:28 MILAN mejias o darian [facility] 2021-01-01 2021-01-01 Outpatient Paul SAMUELS [facility] [id number] Univers 08:00:00 09:20:28 MILAN farmer [facility] 2021-01-01 2021-01-01 Outpatient Paul SAMUELS [facility] [id number] Univers 08:00:00 09:20:28 MILAN farmer [facility] 2021-01-01 2021-01-01 Office Girma, 1.2.840.2 [id number] Univers 07:49:24 09:20:28 Visit Milan 85201.1.1 ity of 3.104.2.7 [place] .3.642525 Medica l .8 [place] 2021-01-01 2021-01-01 Telephone Girma, 1.2.840.8 [id number] Univers 00:00:00 00:00:00 [place] 64301.1.1 ity of 3.104.2.7 [place] .3.318472 Medica l .8 [place] 2021-01-01 2021-01-01 Travel 1.2.840.1 1.2.325.231 [id number] Univers 00:00:00 00:00:00 86135.1.1 350.1.13.10 ity of 3.104.2.7 4.2.7.3.698 [place] .3.903316 084.8 Medica l .8 [place] 2020-12-28 2020-12-28 Outpatient AYUSH DUNAWAY [facility] [id number] Univers 14:20:00 14:20:00 [facility] 2020-12-28 Outpatient R WILBERTO [facility] [id number] Univers 11:00:00 11:18:06 SENDIL ity [facility] 2020-12-28 2020-12-28 Outpatient R WILBERTO [facility] [id number] Univers 11:00:00 11:18:06 SENDIL ity [facility] 2020-12-28 2020-12-28 Outpatient R WILBERTO [facility] [id number] Univers 11:00:00 11:18:06 SENDIL ity [facility] 2020-12-28 2020-12-28 Outpatient R WILBERTO [facility] [id number] Univers 11:00:00 11:18:06 SENDIL ity [facility] 2020-12-28 2020-12-28 Outpatient R LADD [facility] [id number] Univers 11:00:00 11:18:06 SENDIL ity [facility] 2020-12-28 2020-12-28 Outpatient R WILBERTO [facility] [id number] Univers 11:00:00 11:18:06 SENDIL ity [facility] 2020-12-28 2020-12-28 Outpatient R WILBERTO [facility] [id number] Univers 11:00:00 11:18:06 SENDIL [facility] 2020-12-27 2020-12-27 Emergency X SINGER [facility] ERT [id number] Univers 13:27:00 14:19:00 [facility] 2020-12-27 2020-12-27 Emergency X SINGER [facility] ERT [id number] Univers 13:27:00 14:19:00 [facility] 2020-12-27 2020-12-27 Emergency X SINGER [facility] ERT [id number] Univers 13:27:00 14:19:00 [facility] 2020-12-27 2020-12-27 Emergency X SINGER [facility] ERT [id number] Univers 13:27:00 14:19:00 PIA mejias [facility] 2020-12-27 2020-12-27 Emergency X , [facility] ERT [id number] Univers 13:27:00 14:19:00 PIA mejias [facility] 2020-12-26 2020-12-26 Outpatient R GIRMA [facility] [id number] Univers 13:30:00 13:30:00 MILAN obrieny o f [facility] 2020-12-26 2020-12-26 Outpatient R GIRMA [facility] [id number] Univers 13:30:00 13:30:00 MILAN obrieny o f [facility] 2020-12-26 2020-12-26 Outpatient R GIRMA [facility] [id number] Univers 13:30:00 13:30:00 MILAN obrieny o f [facility] 2020-12-26 2020-12-26 Outpatient R GIRMA [facility] [id number] Univers 13:30:00 13:30:00 MILAN obrieny o f [facility] 2020-12-26 2020-12-26 Outpatient R GIRMA [facility] [id number] Univers 13:30:00 13:30:00 MILAN obrieny o f [facility] 2020-12-26 2020-12-26 Outpatient R GIRMA [facility] [id number] Univers 13:30:00 13:30:00 MILAN obrieny o f [facility] 2020-12-26 2020-12-26 Outpatient R GIRMA [facility] [id number] Univers 13:30:00 13:30:00 MILAN ity o f [facility] 2020-12-17 2020-12-19 Inpatient X ABU [facility] DIONISIO [id number] Univers 14:43:00 13:30:00 ATHERgary GUEVARAy o f THELMA [facility] 2020-12-18 2020-12-18 Outpatient R BARTOLOME NATALIEDIRK [facility] [id number] Univers 19:30:00 19:30:00 SUNSHINE KLEIN [facility] 2020-12-17 2020-12-17 Outpatient R ANNE [facility] [id number] Univers 13:15:00 13:15:00 CHUCKIE itblaire of [facility] 2020-12-17 2020-12-17 Outpatient R ANNE [facility] [id number] Univers 13:15:00 13:15:00 CHUCKIE itblaire [facility] 2020-12-14 2020-12-14 Outpatient R [facility] [id number] Univers 15:15:00 15:15:00 ity of [facility] 2020-12-14 2020-12-14 Outpatient R [facility] [id number] Univers 15:15:00 15:15:00 ity of [facility] 2020-12-14 2020-12-14 Outpatient R [facility] [id number] Univers 15:15:00 15:15:00 ity of [facility] 2020-12-14 2020-12-14 Outpatient R [facility] [id number] Univers 15:15:00 15:15:00 ity of [facility] 2020-12-14 2020-12-14 Outpatient R [facility] [id number] Univers 15:15:00 15:15:00 ity of [facility] 2020-12-14 2020-12-14 Outpatient R [facility] [id number] Univers 15:15:00 15:15:00 ity [facility] 2020-12-14 2020-12-14 Outpatient R [facility] [id number] Univers 09:15:00 09:15:00 ity [facility] 2020-12-11 2020-12-12 Outpatient X ISELA [facility] DIONISIO [id number] Univers 11:34:00 12:45:00 BJ ity [facility] 2020-12-11 2020-12-11 Outpatient R ELENI [facility] [id number] Univers 10:40:00 11:23:17 KELLY ity [facility] 2020-12-11 2020-12-11 Outpatient R ELENI [facility] [id number] Univers 10:40:00 11:23:17 KELLY ity [facility] 2020-12-11 2020-12-11 Outpatient R ELENI [facility] [id number] Univers 10:40:00 11:23:17 KELLY ity [facility] 2020-12-11 2020-12-11 Outpatient R ELENI [facility] [id number] Univers 10:40:00 11:23:17 KELLY ity [facility] 2020-12-11 2020-12-11 Outpatient R ELENI [facility] [id number] Univers 10:40:00 11:23:17 KELLY ity [facility] 2020-12-11 2020-12-11 Outpatient R ELENI [facility] [id number] Univers 10:40:00 10:40:00 KELLY ity [facility] 2020-12-10 2020-12-10 Outpatient R [facility] [id number] Univers 00:00:00 23:59:00 ity [facility] 2020-12-10 2020-12-10 Outpatient ELENI [facility] [id number] Univers 00:00:00 00:00:00 KELLY ity [facility] 2020-12-07 2020-12-07 Outpatient R LADD, [facility] [id number] Univers 10:00:00 10:19:12 SENDIL ity [facility] 2020-12-07 2020-12-07 Outpatient R LADD [facility] [id number] Univers 10:00:00 10:19:12 SENDIL ity [facility] 2020-12-07 2020-12-07 Outpatient R WILBERTO [facility] [id number] Univers 10:00:00 10:19:12 SENDIL ity [facility] 2020-12-07 2020-12-07 Outpatient R WILBERTO [facility] [id number] Univers 10:00:00 10:19:12 SENDIL ity [facility] 2020-12-07 2020-12-07 Outpatient R LADD [facility] [id number] Univers 10:00:00 10:19:12 SENDIL ity [facility] 2020-12-07 2020-12-07 Outpatient R WILBERTO [facility] [id number] [facility]:00[facility]07 Outpatient R WILBERTO [facility] [id number] [facility]:00[facility]00 [facility] 2020-12-07 Outpatient R WILBERTO [facility] [id number] [facility]:00[facility]00 [facility] 2020-12-05 Inpatient EM Elisha, [facility] TELE [id number] [facility] 16:20:00 11:58:00 [place] 38 [facility] 2020-11-30 2020-11-30 [facility] [id number] Univers 19:30:00 19:30:00 [facility] 2020-11-29 2020-11-29 Outpatient R BROENTI [facility] [id number] Univers 14:00:00 14:00:00 , [facility] 2020-11-29 2020-11-29 Outpatient R BADRODOLFOENTI [facility] [id number] Univers 14:00:00 14:00:00 , [facility] 2020-11-29 2020-11-29 Outpatient R BADRODOLFOENTI [facility] [id number] Univers 14:00:00 14:00:00 , [facility] 2020-11-29 2020-11-29 Outpatient R BADRODOLFOENTI [facility] [id number] Univers 14:00:00 14:00:00 , [facility] 2020-11-29 2020-11-29 Outpatient R BADRODOLFOENTI [facility] [id number] Univers 14:00:00 14:00:00 , [facility] 2020-11-29 2020-11-29 Outpatient R BADALAMENTI [facility] [id number] Univers 14:00:00 14:00:00 , [facility] 2020-11-29 2020-11-29 Inpatient HCAPM HCAPM [id number] [facility] 09:43:42 09:43:42 33 [facility] 2020-11-28 2020-11-28 Outpatient R [facility] [id number] Univers 09:00:00 09:00:00 ity [facility] 2020-11-27 2020-11-27 Outpatient R SUNSHINE KLEIN [facility] [id number] Univers 19:30:00 19:30:00 SUNSHINE KLEIN ity [facility] 2020-11-27 2020-11-27 Outpatient R [facility]ALIE [facility] [facility] [id number] Univers 19:30:00 19:30:00 SUNSHINE KLEIN ity [facility] 2020-11-27 2020-11-27 Outpatient R NATALIE KLEINDCWandy [facility] [id number] Univers 19:30: 19:30:00 SUNSHINE KLEIN ity [facility] 2020-11-27 2020-11-27 Outpatient R NATALIE KLEINDCWandy [facility] [id number] Univers 19:30:00 19:30:00 SUNSHINE KLEIN ity [facility] 2020-11-27 2020-11-27 Outpatient R NATALIE KLEINDCWandy [facility] [id number] Univers 19:30:00 19:30:00 SUNSHINE KLEIN ity [facility] 2020-11-27 2020-11-27 Outpatient R NATALIE KLEINDCWandy [facility] [id number] Univers 19:30:00 19:30:00 [facility] 2020-11-26 Outpatient R [facility] [id number] Univers 11:30:00 11:30:00 ity [facility] 2020-11-20 2020-11-20 Outpatient R WILBERTO [facility] [id number] Univers 14:00:00 14:00:00 [facility] 2020-11-14 2020-11-14 Outpatient R AMADO [facility] [id number] Univers 00:00:00 00:00:00 MARIA E [facility] 2020-11-14 2020-11-14 Outpatient R AMADO [facility] [id number] Univers 00:00:00 00:00:00 MARIA E [facility] 2020-11-14 2020-11-14 Outpatient R AMADO [facility] [id number] Univers 00:00:00 00:00:00 MARIA E [facility] 2020-11-14 2020-11-14 Outpatient R AMADO [facility] [id number] Univers 00:00:00 00:00:00 MARIA E [facility] 2020-11-10 2020-11-10 Outpatient R SHARONIRA [facility] [id number] Univers 19:30:00 19:30:00 [facility] 2020-11-08 2020-11-08 Outpatient R [facility] [id number] Univers 12:00:00 12:00:00 [facility] 2020-11-07 2020-11-07 Out[facility] [id number] Univers 13:00:00 13:00:00 BARTOLOMENATALIEDCWandy [facility] 2020-11-02 2020-11-02 Outpatient AYUSH DUNAWAY [facility] [id number] Univers 08:40:00 08:40:00 AYUSH BEE [facility] 2020-11-02 2020-11-02 Outpatient AYUSH DUNAWAY [facility] [id number] Univers 08:40:00 08:40:00 AYUSH BEE [facility] 2020-11-02 2020-11-02 Outpatient AYUSH DUNAWAY [facility] [id number] Univers 08:40:00 08:40:00 AYUSH BEE [facility] 2020-11-02 2020-11-02 Outpatient AYUSH DUNAWAY [facility] [id number] Univers 08:40:00 08:40:00 AYUSH BEE [facility] 2020-11-02 2020-11-02 Outpatient AYUSH DUNAWAY [facility] [id number] Univers 08:40:00 08:40:00 AYUSH BEE [facility] 2020-11-02 2020-11-02 Outpatient AYUSH DUNAWAY [facility] [id number] Univers 08:40:00 08:40:00 AYUSH BEE [facility] 2020-10-31 2020-10-31 Outpatient R WILBERTO [facility] [id number] Univers 10:00:00 10:27:10 [facility] 2020-10-31 2020-10-31 Outpatient R WILBERTO [facility] [id number] Univers 10:00:00 10:27:10 SENDIL [facility] 2020-10-31 2020-10-31 Outpatient R WILBERTO [facility] [id number] Univers [facility]:00[facility]00 [facility] 2020-10-31 Outpatient R WILBERTO [facility] [id number] Univers 10:00:00 10:27:10 SENDIL [facility] 2020-10-31 2020-10-31 Outpatient R WILBERTO [facility] [id number] Univers 10:00:00 10:00:00 [facility]-10-[facility] 2020-10-25 Inpatient U BLAISE [facility] [id number] Univers 09:01:00 16:45:00 [facility] 2020-10-12 2020-10-13 Outpatient X PANKAJVENECIA [facility] [id number] Univers 09:51:00 12:38:00 OH [facility] 2020-10-11 2020-10-11 Outpatient R AMADO [facility] [id number] Univers 09:20:00 09:20:00 MARIA E [facility] 2020-10-02 2020-10-02 Outpatient R WILBERTO [facility] [id number] Univers 10:00:00 11:14:31 [facility] 2020-[facility] 2020-10-02 Outpatient R WILBERTO [facility] [id number] Univers 10:00:00 11:14:31 SENDIL ity [facility] 2020-10-02 2020-10-02 Outpatient Paul LADD [facility] [id number] Univers 10:00:00 11:14:31 SENDIL ity [facility] 2020-10-02 2020-10-02 Outpatient Paul LADD [facility] [id number] Univers 10:00:00 10:00:00 SENDIL ity [facility] 2020-09-11 2020-09-11 Outpatient Paul KNOWLES [facility] [id number] Univers 13:00:00 13:46:40 KELLY ity [facility] 2020-09-11 2020-09-11 Outpatient Paul KNOWLES [facility] [id number] Univers 13:00:00 13:46:40 KELLY [facility] 2020-09-11 2020-09-11 Outpatient Paul KNOWLES [facility] [id number] Univers 13:00:00 13:46:40 KELLY [facility] 2020-09-11 2020-09-11 Outpatient Paul KNOWLES [facility] [id number] Univers 13:00:00 13:00:00 KELLY [facility] 2020-09-04 2020-09-04 Outpatient Paul LADD [facility] [id number] Univers 08:30:00 08:30:00 SENDIL ity [facility] 2020-09-03 2020-09-03 Outpatient Paul LDAD [facility] [id number] Univers 10:00:00 11:08:35 SENDIL ity [facility] 2020-09-03 2020-09-03 Outpatient Paul LADD [facility] [id number] Univers 10:00:00 11:08:35 SENDIL ity [facility] 2020-09-03 2020-09-03 Outpatient Paul LADD [facility] [id number] Univers 10:00:00 10:00:00 SENDIL ity [facility] 2020-08-27 2020-08-28 Outpatient Brynn ESPINOZA [facility] [id number] Univers 08:00:00 16:04:00 [place] blaire [facility] 2020-08-27 2020-08-27 Outpatient R VINES [facility] [id number] Univers 15:45:00 15:45:00 JANICE mejias [facility] 2020-08-12 2020-08-12 Emergency X JUHI, [facility] ERT [id number] Univers 22:05:00 23:50:00 MARY mejias [facility] 2020-07-30 2020-08-09 Inpatient X ABU [facility] [id number] Univers 05:18:00 15:32:00 gary KEITHy o f THELMA [facility] 2020-07-30 2020-08-09 Inpatient X ABU [facility] [id number] Univers 05:18:00 15:32:00 gary KEITHy o f THELMA [facility] 2020-07-30 2020-08-09 Inpatient X ABU [facility] [id number] Univers 05:18:00 15:32:00 randell KEITH [facility] 2020-07-23 2020-07-23 Outpatient R LADD, [facility] [id number] Univers 11:00:00 11:00:00 ANADANE [facility] 2020-07-04 2020-07-05 Outpatient X ADAMS LISANDRA [facility] [id number] Univers 09:45:00 13:00:00 [facility] 2020-06-28 2020-06-28 Emergency X YARIMA, [facility] ERT [id number] Univers [facility]:02[facility] 2020-06-28 Emergency X YARIMA, [facility] ERT [id number] Univers 00:02:00 01:33:00 DORIS [facility] 2020-06-26 2020-06-26 Outpatient R ESTELA, [facility] [id number] Univers 08:00:00 08:00:00 REBECCA [facility] 2020-06-26 2020-06-26 Outpatient R ESTELA [facility] [id number] Univers 08:00:00 08:00:00 REBECCA [facility] 2020-06-26 2020-06-26 Outpatient R ESTELA [facility] [id number] Univers 08:00:00 08:00:00 REBECCA randell [facility] 2020-06-08 2020-06-08 Outpatient R LADD, [facility] [id number] Univers 13:30:00 13:30:00 [facility] 2020-06-08 2020-06-08 Outpatient R WILBERTO [facility] [id number] Univers 13:30:00 [facility]:30[facility] 2020-05-[facility] 2020-06-02 Inpatient E JOSÉ MIGUEL [facility] [id number] 05:06:00 14:30:00 [facility] 2020-05-30 2020-05-30 Outpatient R ROBERT [facility] [id number] Univers 00:00:00 00:00:00 KIM mejias [facility] 2020-05-30 2020-05-30 Outpatient R ROBERT [facility] [id number] Univers 00:00:00 00:00:00 [facility] 2020-05-22 2020-05-22 Outpatient R ROBERT [facility] [id number] Univers 16:20:00 16:20:00 KIM [facility] 2020-05-15 2020-05-16 Outpatient X PANKAJANTHONYPAOLA [facility] [id number] Univers 09:41:00 12:59:00 [place] [facility] 2020-05-15 2020-05-15 Outpatient R WILBERTO [facility] [id number] Univers 16:00:00 16:00:[facility] 2020-05-03 2020-05-03 Outpatient R ROBERT [facility] [id number] Univers 10:40:00 10:40:00 KIM [facility] 2020-04-30 2020-05-02 Inpatient X PANKAJANTHONYPAOLA [facility] [id number] Univers 09:07:00 14:10:00 OH [facility] 2020-04-17 2020-04-17 Outpatient R RADIOLOGY [facility] [id number] Univers 09:53:31 23:59:00 ity of [facility] 2020-04-17 2020-04-17 Outpatient R RADIOLOGY [facility] [id number] Univers 00:00:00 00:00:00 ity of [facility] 2020-04-02 2020-04-04 Inpatient U JORDIN [facility] [id number] Univers 10:09:00 11:59:00 [place] ity [facility] 2020-04-02 2020-04-02 Outpatient R WILBERTO, [facility] [id number] Univers 10:00:00 10:00:00 SENDIL ity [facility] 2020-03-07 2020-03-08 Outpatient X JORDIN, [facility] [id number] Univers 08:27:00 13:05:00 [facility] 2020-03-06 2020-03-06 Outpatient R KIN, [facility] [id number] Univers 09:40:00 09:40:00 RONNALAUREN ity o f [facility] 2020-02-06 2020-02-06 Outpatient R JOSE MARLOW [facility] [id number] Univers 11:15:00 11:15:00 ity of [facility] 2020-02-05 2020-02-05 Emergency X KNOX, [facility] ERT [id number] Univers 09:47:40 12:00:00 [facility] 2020-01-31 2020-01-31 Outpatient R ROBERT, [facility] [id number] Univers 08:20:00 08:20:00 KIM ity [facility] 2020-01-17 2020-01-17 Emergency X YAPAULIE, [facility] ERT [id number] Univers 07:06:06 09:48:00 DORIS it[facility] 2020-01-09 2020-01-13 Inpatient X VICKI, [facility] MPU [id number] Univers 11:14:35 15:51:00 ABBY ity [facility] 2019-12-29 2019-12-29 Outpatient R WILBERTO, [facility] [id number] Univers 14:00:00 14:00:00 SENDIL ity [facility] 2019-12-28 2019-12-28 Outpatient R AMADO, [facility] [id number] Univers 13:45:00 13:45:00 MARIA E bl[facility] 2019-12-20 2019-12-20 Outpatient R ROBERT [facility] [id number] Univers 08:00:00 08:00:00 KIM mejias [facility] 2019-12-16 2019-12-17 Outpatient X JORDIN [facility] [id number] Univers 13:18:28 12:30:00 [place] [facility] 2019-12-09 2019-12-10 Outpatient U LDAD, [facility] [id number] Univers 14:24:00 13:40:[facility] 2019-12-09 2019-12-09 Outpatient R WILBERTO [facility] [id number] Univers 11:00:00 11:00:[facility] 2019-10-28 2019-10-28 Outpatient R WILBERTO [facility] [id number] Univers 09:30:00 09:30:00 [facility] 2019-10-27 2019-10-27 Outpatient R JOSE ALEJANDROYAMILETRISABLUE [facility] [id number] Univers 16:00:00 16:00:00 [facility] 2019-10-17 2019-10-18 Inpatient X JORDIN [facility] [id number] Univers 08:57:37 16:37:00 [place] [facility] 2019-10-12 2019-10-12 Outpatient R BARTOLOME NATALIEDIRK [facility] [id number] Univers 14:00:00 14:00:00 BARTOLOME NATALIEDIRK [facility] 2019-10-06 2019-10-06 Outpatient R AMADO [facility] [id number] Univers 10:00:00 10:00:00 MARIA E [facility] 2019-09-27 2019-09-29 Inpatient X VANITA [facility] [id number] Univers 20:03:19 12:43:00 JANIYA [facility] 2019-09-15 2019-09-15 Outpatient R WILBERTO [facility] [id number] Univers 11:00:00 12:06:04 SENDIL [facility] 2019-09-08 2019-09-08 Outpatient R AMADO [facility] [id number] Univers 12:40:00 14:26:13 MARIA E [facility] 2019-08-23 2019-08-23 Outpatient R ROBERT [facility] [id number] Univers 16:00:00 16:00:00 KIM [facility] 2019-08-05 2019-08-05 Outpatient R ROBERT [facility] [id number] Univers 10:13:21 23:59:00 KIM [facility] 2019-08-04 2019-08-04 Outpatient R GORDON [facility] [id number] Univers 13:30:00 14:24:09 SALOME [facility] 2019-08-01 2019-08-01 Outpatient R ROBERT [facility] [id number] Univers 13:00:00 [facility]09[facility] 2019-07-20 Inpatient X VANITA [facility] [id number] Univers 08:32:03 17:30:00 JANIYA [facility] 2015-02-25 2015-02-25 Emergency X JER [facility] ERT [id number] Univers 10:52:00 15:20:00 JO [facility] Results Test Description Test Time Test Comments Results Result Comments Source POCT GLUCOSE (AUTOMATED) 2022-06-09 23:04:10 Test Item Value Reference Range Interpretation Comme nts POCT GLU (test code = 8834447388) 219 mg/dL 70-110 H Lab Interpretation (test code = 03606-7) [facility]normal [facility]2022-06-09 18:07:54 Test Item Value Reference Range Interpretation Comments POCT GLU (test code = 8897297861) 123 mg/dL 70-110 H Lab Interpretation (test code = Abnormal 39510-6) [facility] GLUCOSE (AUTOMATED)2022-06-09 13:54:05 Test Item Value Reference Range Interpretation Comments POCT GLU (test code = 8302407417) 99 mg/dL 70-110 Lab Interpretation (test code = Normal 02313-8) [facility] GLUCOSE (AUTOMATED)2022-06-09 03:02:13 Test Item Value Reference Range Interpretation Comments POCT GLU (test code = 5812713820) 102 mg/dL 70-110 Lab Interpretation (test code = Normal 53008-1) [facility] GLUCOSE (AUTOMATED)2022-06-08 22:57:07 Test Item Value Reference Range Interpretation Comments POCT GLU (test code = 1649456501) 101 mg/dL 70-110 Lab Interpretation (test code = Normal 84121-9) [facility] GLUCOSE (AUTOMATED)2022-06-08 17:36:44 Test Item Value Reference Range Interpretation Comments POCT GLU (test code = 9220878410) 103 mg/dL 70-110 Lab Interpretation (test code = Normal 40404-0) [facility] GLUCOSE (AUTOMATED)2022-06-08 13:42:38 Test Item Value Reference Range Interpretation Comments POCT GLU (test code = 4590464339) 112 mg/dL 70-110 H Lab Interpretation (test code = Abnormal 85138-9) [facility] GLUCOSE (AUTOMATED)2022-06-08 01:27:29 Test Item Value Reference Range Interpretation Comments POCT GLU (test code = 2475986123) 117 mg/dL 70-110 H Lab Interpretation (test code = Abnormal 48789-8) [facility] GLUCOSE (AUTOMATED)2022-06-07 22:01:24 Test Item Value Reference Range Interpretation Comments POCT GLU (test code = 2079705784) 120 mg/dL 70-110 H Lab Interpretation (test code = Abnormal 39564-1) [facility] GLUCOSE (AUTOMATED)2022-06-07 16:41:29 Test Item Value Reference Range Interpretation Comments POCT GLU (test code = 9612002506) 115 mg/dL 70-110 H Lab Interpretation (test code = Abnormal 75093-4) [facility] GLUCOSE (AUTOMATED)2022-06-07 12:55:27 Test Item Value Reference Range Interpretation Comments POCT GLU (test code = 9877056078) 113 mg/dL 70-110 H Lab Interpretation (test code = Abnormal 62220-7) [facility] GLUCOSE (AUTOMATED)2022-06-06 21:33:33 Test Item Value Reference Range Interpretation Comments POCT GLU (test code = 2303418245) 108 mg/dL 70-110 Lab Interpretation (test code = Normal 85580-1) [facility] GLUCOSE (AUTOMATED)2022-06-06 17:00:26 Test Item Value Reference Range Interpretation Comments POCT GLU (test code = 0179350465) 129 mg/dL 70-110 H Lab Interpretation (test code = Abnormal 18032-4) [facility] CenterCORTISOL [id number] 16:05:22 Test Item Value Reference Range Interpretation Comments JOCELINE AM (test code = 13.2 ug/dL 4.5-23.0 9187125100) JACOB (test code = JACOB) Biotin has been reported to cause a positive bias, interpret results relative to patient's use of biotin. Lab Interpretation (test Normal code = 73062-3) [facility] GLUCOSE (AUTOMATED)2022-06-06 13:07:51 Test Item Value Reference Range Interpretation Comments POCT GLU (test code = 6778339272) 113 mg/dL 70-110 H Lab Interpretation (test code = Abnormal 31983-6) [facility] CenterTHYROID STIMULATING [id number] 10:50:46 Test Item Value Reference Range Interpretation Comments TSH (test code = See_Comment [Automated message] 3183237269) The system [employer] generated this result transmitted ref erence range: 0.45 - 4 .70 mIU/L. The refe rence range was not u sed to interpret this result as normal/abnor mal. Lab Interpretation (test Normal code = 51336-7) [facility] [id number] 10:36:44 Test Item Value Reference Range Interpretation Comments FREE T4 (test code = See_Comment [Autom ated message] 8918669095) The system [employer] generated this result transmitted ref erence range: 0.78 - 2 .20 ng/dL:. The ref erence range was not u sed to interpret this result as normal/abnor mal. Lab Interpretation (test Normal code = 93700-9) [facility] Metabolic Panel (NA, K, CL, CO2, GLUCOSE, BUN, CREATININE, CA)2022-06-06 10:21:23 Test Item Value Reference Range Interpretation Comments NA (test code = 137 mmol/L 135-145 2638505119) K (test code = 3.9 mmol/L 3.5-5.0 4014122618) CL (test code = 93 mmol/L 98-108 L 5334309704) CO2 TOTAL (test code = 31 mmol/L 23-31 6519905004) AGAP (test code = 2-16 5577606635) BUN (test code = 51 mg/dL 7-23 H 0727940718) GLUCOSE (test code = 115 mg/dL 70-110 H 1218266430) CREATININE (test code = 2.18 mg/dL 0.60-1.25 H 9793554098) CALCIUM (test code = 10.0 mg/dL 8.6-10.6 1234243819) eGFR (test code = mL/min/1.73m2 1317449385) JACOB (test code = JACOB) Association of [...] tests). Lab Interpretation Abnormal (test code = 21519-1) [facility] CenterGLYCOSYLATED HEMOGLOBIN (A1C)2022-06-06 09:42:08 Test Item Value Reference Range Interpretation Comments HGB A1C (test code = 6.5 % 4.0-5.7 H 4548-4) JACOB (test code = JACOB) Reference RangesNormal: <5.7%Prediabetes: 5.7 - 6.4%Diabetes: > 6.5% Lab Interpretation (test Abnormal code = 75184-0) [facility] CenterCBC with [id number] 09:12:15 Test Item Value Reference Range Interpretation Comments WBC (test code = See_Comment [Automated 6690-2) message] The sy stem which generated this result transmitted reference range : 4.20 - 10.70 10*3/?L. The reference range was not used to interpret this result as normal/abnormal . RBC (test code = See_Comment H [Automated 789-8) message] The sy stem which generated this result transmitted reference range : 4.26 - 5.52 10*6/?L. The reference range was not used to interpret this result as normal/abnormal . HGB (test code = 15.5 g/dL 12.2-16.4 718-7) HCT (test code = 47.5 % 38.4-49.3 4544-3) MCV (test code = 76.1 fL 81.7-95.6 L 787-2) MCH (test code = 24.8 pg 26.1-32.7 L 785-6) MCHC (test code = 32.6 g/dL 31.2-35.0 786-4) RDW-SD (test code = 42.9 fL 38.5-51.6 20797-3) RDW-CV (test code = 16.0 % 12.1-15.4 H 788-0) PLT (test code = See_Comment [Automated 777-3) message] The sy stem which generated this result transmitted reference range : 150 - 328 10*3/ ?L. The reference r marino was not used to interpret this result as normal/abnormal . MPV (test code = 10.9 fL 9.8-13.0 76034-7) NRBC/100 WBC (test See_Comment [Automat ed code = 9428457698) message] The system which generated this result transmitted reference range : 0.0 - 10.0 /100 WBCs. The refer ence range was not u sed to interpret th is result as normal/abnormal . NRBC x10^3 (test code See_Comment [Auto mated = 9653495165) message] The s ystem which generated this result transmitted reference range : 10*3/?L. The reference range was not used to interpret this result as normal/abnormal . GRAN MAT (NEUT) % 43.8 % (test code = 770-8) IMM GRAN % (test code 0.20 % = 4313879866) LYMPH % (test code = 40.2 % 736-9) MONO % (test code = 14.4 % 5905-5) EOS % (test code = 1.2 % 713-8) BASO % (test code = 0.2 % 706-2) GRAN MAT x10^3(ANC) 2.26 10*3/uL 1.99-6.95 (test code = 6054529432) IMM GRAN x10^3 (test 0.00-0.06 code = 9250596326) LYMPH x10^3 (test code 2.07 10*3/uL 1.09-3.23 = 731-0) MONO x10^3 (test code 0.74 10*3/uL 0.36-1.02 = 742-7) EOS x10^3 (test code = 0.06 10*3/uL 0.06-0.53 711-2) BASO x10^3 (test code 0.01-0.09 = 704-7) Lab Interpretation Abnormal (test code = 06013-3) [facility] CenterAD[facility]N [id number] 22:42:16 Test Item Value Reference Interpretation Comments Range TROPONIN I (test 0.048 ng/mL See_Comment H [Automated code = 6383898751) message] The system which generated this result [...] biotin. Lab Interpretation Abnormal (test code = 29506-6) [facility]. METABOLIC PANEL (18910)2022-06-05 21:40:24 Test Item Value Reference Range Interpretation Comments NA (test code = 136 mmol/L 135-145 2310877719) K (test code = 4.2 mmol/L 3.5-5.0 4432192230) CL (test code = 93 mmol/L 98-108 L 9675470697) CO2 TOTAL (test code = 29 mmol/L 23-31 5017166477) AGAP (test code = 2-16 4672496066) BUN (test code = 45 mg/dL 7-23 H 0254399987) GLUCOSE (test code = 113 mg/dL 70-110 H 8333976494) CREATININE (test code = 2.31 mg/dL 0.60-1.25 H 0834434926) TOTAL BILI (test code = 1.7 mg/dL 0.1-1.1 H 6458764563) CALCIUM (test code = 9.9 mg/dL 8.6-10.6 6304411595) T PROTEIN (test code = 8.8 g/dL 6.3-8.2 H 8075096384) ALBUMIN (test code = 4.8 g/dL 3.5-5.0 3356859904) ALK PHOS (test code = 88 U/L 34-122 0453163884) ALTv (test code = 21 U/L 5-50 1742-6) AST(SGOT) (test code = 25 U/L 13-40 7183593703) eGFR (test code = mL/min/1.73m2 2426370840) JACOB (test code = JACOB) Association of [...] tests). Lab Interpretation Abnormal (test code = 87203-5) [facility] CenterAMMONIA, [id number] 21:39:03 Test Item Value Reference Range Interpretation Comments AMMONIA (test code = 5608406406) 13 umol/L 9-33 Lab Interpretation (test code = Normal 77403-5) [facility] CenterPROTHROMBIN TIME / [id number] 21:38:01 Test Item Value Reference Range Interpretation Comments PROTIME PATIENT (test See_Comment [Auto mated message] code = 5964-2) The system [employer] generated this result transmitted ref erence range: 12.0 - 1 4.7 Seconds. The re ference range was not u sed to interpret this result as normal/abnor mal. INR (test code = 6301-6) Nor mal INR <1.1; Warfarin Therap eutic range 2.0 to 3. 0 or 2.5 to 3.5, dep ending upon the indica tions. Lab Interpretation (test Normal code = 46508-0) [facility] WITH [id number] 21:34:23 Test Item Value Reference Range Interpretation Comments WBC (test code = See_Comment [Automated 6690-2) message] The sy stem which generated this result transmitted reference range : 4.20 - 10.70 10*3/?L. The reference range was not used to interpret this result as normal/abnormal . RBC (test code = See_Comment H [Automated 789-8) message] The sy stem which generated this result transmitted reference range : 4.26 - 5.52 10*6/?L. The reference range was not used to interpret this result as normal/abnormal . HGB (test code = 15.7 g/dL 12.2-16.4 718-7) HCT (test code = 48.4 % 38.4-49.3 4544-3) MCV (test code = 76.2 fL 81.7-95.6 L 787-2) MCH (test code = 24.7 pg 26.1-32.7 L 785-6) MCHC (test code = 32.4 g/dL 31.2-35.0 786-4) RDW-SD (test code = 43.6 fL 38.5-51.6 51365-8) RDW-CV (test code = 17.4 % 12.1-15.4 H 788-0) PLT (test code = See_Comment [Automated 777-3) message] The sy stem which generated this result transmitted reference range : 150 - 328 10*3/ ?L. The reference r marino was not used to interpret this result as normal/abnormal . MPV (test code = 10.3 fL 9.8-13.0 53738-7) NRBC/100 WBC (test See_Comment [Automat ed code = 3983864230) message] The system which generated this result transmitted reference range : 0.0 - 10.0 /100 WBCs. The refer ence range was not u sed to interpret th is result as normal/abnormal . NRBC x10^3 (test code See_Comment [Auto mated = 7439502167) message] The s ystem which generated this result transmitted reference range : 10*3/?L. The reference range was not used to interpret this result as normal/abnormal . GRAN MAT (NEUT) % 46.9 % (test code = 770-8) IMM GRAN % (test code 0.20 % = 6156212460) LYMPH % (test code = 38.8 % 736-9) MONO % (test code = 12.9 % 5905-5) EOS % (test code = 0.9 % 713-8) BASO % (test code = 0.3 % 706-2) GRAN MAT x10^3(ANC) 3.01 10*3/uL 1.99-6.95 (test code = 1421131086) IMM GRAN x10^3 (test 0.00-0.06 code = 7030014034) LYMPH x10^3 (test code 2.49 10*3/uL 1.09-3.23 = 731-0) MONO x10^3 (test code 0.83 10*3/uL 0.36-1.02 = 742-7) EOS x10^3 (test code = 0.06 10*3/uL 0.06-0.53 711-2) BASO x10^3 (test code 0.01-0.09 = 704-7) Lab Interpretation Abnormal (test code = 65348-8) [facility] GLUCOSE (AUTOMATED)2022-06-03 13:23:16 Test Item Value Reference Range Interpretation Comments POCT GLU (test code = 8691799584) 113 mg/dL 70-110 H Lab Interpretation (test code = Abnormal 21673-5) [facility] GLUCOSE (AUTOMATED)2022-06-02 22:20:49 Test Item Value Reference Range Interpretation Comments POCT GLU (test code = 1885444247) 105 mg/dL 70-110 Lab Interpretation (test code = Normal 87958-0) [facility] GLUCOSE (AUTOMATED)2022-06-02 17:14:01 Test Item Value Reference Range Interpretation Comments POCT GLU (test code = 6086642760) 101 mg/dL 70-110 Lab Interpretation (test code = Normal 68333-7) [facility] GLUCOSE (AUTOMATED)2022-06-02 13:06:11 Test Item Value Reference Range Interpretation Comments POCT GLU (test code = 4931192408) 91 mg/dL 70-110 Lab Interpretation (test code = Normal 81691-3) [facility] GLUCOSE (AUTOMATED)2022-06-02 09:46:37 Test Item Value Reference Range Interpretation Comments POCT GLU (test code = 3606516294) 88 mg/dL 70-110 Lab Interpretation (test code = Normal 27892-5) [facility] GLUCOSE (AUTOMATED)2022-06-02 01:58:12 Test Item Value Reference Range Interpretation Comments POCT GLU (test code = 3920082393) 97 mg/dL 70-110 Lab Interpretation (test code = Normal 03377-1) [facility] GLUCOSE (AUTOMATED)2022-06-01 21:49:40 Test Item Value Reference Range Interpretation Comments POCT GLU (test code = 5025900345) 83 mg/dL 70-110 Lab Interpretation (test code = Normal 08300-3) [facility] GLUCOSE (AUTOMATED)2022-05-15 16:25:57 Test Item Value Reference Range Interpretation Comments POCT GLU (test code = 136 mg/dL 70-110 H Notifi ed Provider [id number]) Lab Interpretation (test Abnormal code = 82841-3) [facility] GLUCOSE (AUTOMATED)2022-05-15 13:11:35 Test Item Value Reference Range Interpretation Comments POCT GLU (test code = 108 mg/dL 70-110 Notifi ed Provider [id number]) Lab Interpretation (test Normal code = 84929-9) [facility] METABOLIC PANEL (NA, K, CL, CO2, GLUCOSE, BUN, CREATININE, CA)2022-05-15 10:31:36 Test Item Value Reference Range Interpretation Comments NA (test code = 138 mmol/L 135-145 7156954998) K (test code = 4.0 mmol/L 3.5-5 5884296762) CL (test code = 100 mmol/L 98-108 7464455290) CO2 TOTAL (test code = 28 mmol/L 23-31 9575310969) AGAP (test code = 2-16 3905514157) BUN (test code = 43 mg/dL 7-23 H 3860168567) GLUCOSE (test code = 120 mg/dL 70-110 H 2665366685) CREATININE (test code = 1.52 mg/dL 0.6-1.25 H 3921422228) CALCIUM (test code = 8.6 mg/dL 8.6-10.6 7636534025) eGFR (test code = mL/min/1.73m2 5321522584) JACOB (test code = JACOB) Association of [...] tests). Lab Interpretation Abnormal (test code = 80855-7) [facility] 10:31:36 Test Item Value Reference Range Interpretation Comments MAGNESIUM (test code = 3457840436) 2.4 mg/dL 1.7-2.4 Lab Interpretation (test code = Normal 47308-3) [facility] WITH [id number] 10:08:36 Test Item Value Reference Range Interpretation Comments WBC (test code = See_Comment [Automated 4590-2) message] The sy stem which generated this [...] as normal/abnormal . HGB (test code = 12.9 g/dL 12.2-16.4 718-7) HCT (test code = 40.2 % 38.4-49.3 4544-3) MCV (test code = 79.3 fL 81.7-95.6 L 787-2) MCH (test code = 25.4 pg 26.1-32.7 L 785-6) MCHC (test code = 32.1 g/dL 31.2-35 786-4) RDW-SD (test code = 45.1 fL 38.5-51.6 79622-9) RDW-CV (test code = 15.9 % 12.1-15.4 H 788-0) PLT (test code = See_Comment [Automated 777-3) message] The sy stem which generated this result transmitted reference range : 150 - 328 10*3/ ?L. The reference r marino was not used to interpret this result as normal/abnormal . MPV (test code = 10.6 fL 9.8-13 03944-4) NRBC/100 WBC (test See_Comment [Automat ed code = 1664416324) message] The system which generated this result transmitted reference range : 0.0 - 10.0 /100 WBCs. The refer ence range was not u sed to interpret th is result as normal/abnormal . NRBC x10^3 (test code See_Comment [Auto mated = 6523832228) message] The s ystem which generated this result transmitted reference range : 10*3/?L. The reference range was not used to interpret this result as normal/abnormal . GRAN MAT (NEUT) % 65.9 % (test code = 770-8) IMM GRAN % (test code 0.30 % = 4361779662) LYMPH % (test code = 23.2 % 736-9) MONO % (test code = 10.1 % 5905-5) EOS % (test code = 0.3 % 713-8) BASO % (test code = 0.2 % 706-2) GRAN MAT x10^3(ANC) 5.68 10*3/uL 1.99-6.95 (test code = 6102537049) IMM GRAN x10^3 (test 0.03 10*3/uL 0-0.06 code = 4171982920) LYMPH x10^3 (test code 2.00 10*3/uL 1.09-3.23 = 731-0) MONO x10^3 (test code 0.87 10*3/uL 0.36-1.02 = 742-7) EOS x10^3 (test code = 0.03 10*3/uL 0.06-0.53 L 711-2) BASO x10^3 (test code 0.01-0.09 = 704-7) Lab Interpretation Abnormal (test code = 18647-8) [facility] GLUCOSE (AUTOMATED)2022-05-15 01:35:43 Test Item Value Reference Range Interpretation Comments POCT GLU (test code = 7721519037) 121 mg/dL 70-110 H Lab Interpretation (test code = Abnormal 90909-9) [facility] GLUCOSE (AUTOMATED)2022-05-14 21:31:02 Test Item Value Reference Range Interpretation Comments POCT GLU (test code = 4102453331) 134 mg/dL 70-110 H Lab Interpretation (test code = Abnormal 70357-5) [facility] GLUCOSE (AUTOMATED)2022-05-14 13:18:03 Test Item Value Reference Range Interpretation Comments POCT GLU (test code = 7162936944) 134 mg/dL 70-110 H Lab Interpretation (test code = Abnormal 94036-8) [facility] GLUCOSE (AUTOMATED)2022-05-14 00:37:27 Test Item Value Reference Range Interpretation Comments POCT GLU (test code = 0692557040) 138 mg/dL 70-110 H Lab Interpretation (test code = Abnormal 41884-9) [facility] use with Heparin Drip[facility]2022-05-13 21:44:37 Test Item Value Reference Range Interpretation Comments APTT Patient (test code See_Comment H [Au tomated message] = 3173-2) The system [employer] generated this result transmitted ref erence range: 26 - 36 Seconds. The reference range was not used to int erpret this result as normal/abnormal . Lab Interpretation (test Abnormal code = 29556-3) [facility] GLUCOSE (AUTOMATED)2022-05-13 21:23:02 Test Item Value Reference Range Interpretation Comments POCT GLU (test code = 6326398627) 129 mg/dL 70-110 H Lab Interpretation (test code = Abnormal 30512-2) [facility] GLUCOSE (AUTOMATED)2022-05-13 20:36:50 Test Item Value Reference Range Interpretation Comments POCT GLU (test code = 1816114903) 107 mg/dL 70-110 Lab Interpretation (test code = Normal 28534-5) [facility] GLUCOSE (AUTOMATED)2022-05-13 20:35:27 Test Item Value Reference Range Interpretation Comments POCT GLU (test code = 1395327218) 145 mg/dL 70-110 H Lab Interpretation (test code = Abnormal 36554-3) [facility]an[facility] (TTE)2022-05-13 19:45:15 Test Item Value Reference Range Interpretation Comments LVIDD (test code = 6.10 cm 1620963922) Interventricular Septum 1.71 cm Diastolic Thickness by 2D (test code = 4129596) PW (test code = 1.64 cm 0.6-1.2 1536255647) LVIDS (test code = 5.50 cm 0845497671) LA size (test code = 3.8 cm 3678598803) LVPWD (test code = 1.64 cm 6231669958) AV LVOT peak gradient mmHg (test code = 7712999876) E wave decelartion time 0.10 s (test code = 2488604345) LVOT diameter (test code 2.5 cm = 4053995204) LVOT peak VTI (test code 10.5 cm = 8198142514) LVOT stroke volume (test 52.60 cm3 code = 1237371383) Triscuspid Valve mmHg Regurgitation Peak Gradient (test code = 8957777935) MV Peak E Sommer (test code 98.1 cm/s = 3544507623) IVS (test code = 1.71 cm 6885382899) Aortic root (test code = 3.7 cm 0085510910) Tapse (test code = 1.52 cm 6214728308) EF - 2D (test code = 21.20 % 72258624) Left Ventricular End 189.2 mL Diastolic Volume by Teichholz Method (test code = 5696981) Left Ventricular End 149.1 mL Systolic Volume by Teichholz Method (test code = 9135228) Ao root annulus (test 3.7 cm code = 0932711369) FS (test code = 10 % 6706041051) LVOT mn grad (test code mmHg = 4584148821) TR Peak Sommer (test code = 283.7 cm/s 3391151438) MV E/e' septal (test 4.5 cm/s code = 0892055516) LVOT area (test code = 5.00 cm2 8521048525) LVOT peak sommer (test code 78.8 cm/s = 9472000225) BSA (test code = 2.7 m2 4298835177) Ao root diam (test code 3.70 cm = 0178552770) EF(Teich) (test code = 21.20 % 8027215981) LV V1 mean (test code = 52.50 cm/s 8349745499) MV Prop V (test code = 28.90 cm/s 7461767389) Height (test code = in 7240925114) Weight (test code = lbs 6903457740) Systolic BP (test code = mmHg 4504684090) Diastolic BP (test code mmHg = 5836930050) Heart Rate (test code = bpm 5454677205) LV Diastolic Volume (BP) 285.5 mL (test code = 9489379408) A2C EF (test code = 12.80 % 2063011264) EF(sp2-el) (test code = 12.90 % 3364892102) SV(MOD-sp2) (test code = 40.90 mL 1090542433) A4C EF (test code = 16.30 % 5464682908) EF(MOD-bp) (test code = 16.80 % 7582586950) EF(sp4-el) (test code = 20.60 % 6728531447) LV Systolic Volume (BP) 237.7 mL (test code = 0518110253) SV(MOD-bp) (test code = 47.90 mL 3130506659) SV(MOD-sp4) (test code = 39.70 mL 3712061838) SV(sp4-el) (test code = 55.90 mL 7269351936) EF (test code = 6440649125) Left Ventricular Stroke 47.9 mL Volume by 2-D Biplane-MOD (test code = 4513772) LV Diastolic Volume 105.7 mL/m2 Index (BP) (test code = 3564754628) LV Systolic Volume Index 88.0 mL/m2 (BP) (test code = 6094820482) Radiology Study observation (narrative) (test code = 87149-0) JACOB (test code = JACOB) ?Left?Ventricle: Left ventricle is severely dilated ?LVVI 105 ml/m2. Severely increased wall thickness. There is severe concentric hypertrophy ?LVMI 179 g/m2, RWT 0.56. Normal wall motion. Normal systolic function with a visually estimated EF of 15 - 20%. EF by 2D Gamino biplane is 17%. Unable to accurately grade diastolic dysfunction due to E-A fusion. Indeterminate left ventricular filling pressure. ?Right?Ventricle: Right ventricle is dilated. Mildly reduced systolic function. There is a pacemaker lead in the right ventricle. ?Tricuspid?Valve: Tricuspid valve structure is normal. Mild transvalvular regurgitation. There is mild pulmonary hypertension. ?Right ventricular systolic pressure is 35-40 mmHg. ?RA pressure is 0-5 mmHg. No stenosis. ?Left?Atrium: Left atrium is dilated. ?Pericardium: No pericardial effusion. Left VentricleLeft ventricle is severely dilated LVVI 105 ml/m2. Severely increased wall thickness. There is severe concentric hypertrophy LVMI 179 g/m2, RWT 0.56. Normal wall motion. Normal systolic function with a visually estimated EF of 15 - 20%. EF by 2D Gamino biplane is 17%. Unable to accurately grade diastolic dysfunction due to E-A fusion. Indeterminate left ventricular filling pressure.Right VentricleNot well visualized. Right ventricle is dilated. Mildly reduced systolic function. There is a pacemaker lead in the right ventricle.Left AtriumNot well visualized. Left atrium is dilated.Right AtriumRight atrium size is normal. Lead present in the right atrium.IVC/SVCIVC diameter is less than or equal to 21 mm and decreases greater than 50% during inspiration; therefore the estimated right atrial pressure is normal (~0-5 mmHg).Mitral ValveMildly thickened leaflets. Mild mitral annular calcification. Trace transvalvular regurgitation. No stenosis.Tricuspid ValveTricuspid valve structure is normal. Mild transvalvular regurgitation. There is mild pulmonary hypertension. Right ventricular systolic pressure is 35-40 mmHg. RA pressure is 0-5 mmHg. No stenosis.Aortic ValveTricuspid. No transvalvular regurgitation. No evidence of aortic stenosis.Pulmonic ValveNot well visualized. Valve structure is normal. Trace transvalvular regurgitation. No stenosis.Ascending AortaNormal sized annulus and sinus of Valsalva.PericardiumT he pericardium is normal. No pericardial effusion.Study DetailsStudy quality was adequate. A complete echocardiogram was performed using 2D, color flow Doppler and spectral Doppler. 5 mL of Lumason ultrasound enhancing agent used. Patient exhibited sinus rhythm. [facility] CenterACTIVATED PARTIAL THRMPLAS [id number] 15:40:52 Test Item Value Reference Range Interpretation Comments APTT Patient (test code See_Comment H [Au tomated message] = 3173-2) The system [employer] generated this result transmitted ref erence range: 26 - 36 Seconds. The reference range was not used to int erpret this result as normal/abnormal . Lab Interpretation (test Abnormal code = 35806-1) [facility]2022-05-13 02:37:38 Test Item Value Reference Range Interpretation Comments POCT GLU (test code = 4906880042) 104 mg/dL 70-110 Lab Interpretation (test code = Normal 43808-8) [facility] CenterTROPONIN [id number] 23:05:27 Test Item Value Reference Interpretation Comments Range TROPONIN I (test 1.060 ng/mL See_Comment H [Automated code = 9178617263) message] The system which generated this result [...] biotin. Lab Interpretation Abnormal (test code = 23960-0) [facility] GLUCOSE (AUTOMATED)2022-05-12 20:15:15 Test Item Value Reference Range Interpretation Comments POCT GLU (test code = 105 mg/dL 70-110 Notifi ed Provider [id number]) Lab Interpretation (test Normal code = 27363-8) [facility] CenterTR[facility] [id number] 20:09:56 Test Item Value Reference Interpretation Comments Range TROPONIN I (test 1.100 ng/mL See_Comment H [Automated code = 6968579455) message] The system which generated this result [...] biotin. Lab Interpretation Abnormal (test code = 14495-6) [facility] GLUCOSE (AUTOMATED)2022-05-12 17:17:06 Test Item Value Reference Range Interpretation Comments POCT GLU (test code = 111 mg/dL 70-110 H Notifi ed Provider [id number]) Lab Interpretation (test Abnormal code = 96956-7) [facility] GLUCOSE (AUTOMATED)2022-05-12 13:08:44 Test Item Value Reference Range Interpretation Comments POCT GLU (test code = 9114054591) 97 mg/dL 70-110 Lab Interpretation (test code = Normal 85027-3) [facility] GLUCOSE (AUTOMATED)2022-05-12 01:01:49 Test Item Value Reference Range Interpretation Comments POCT GLU (test code = 5500210682) 92 mg/dL 70-110 Lab Interpretation (test code = Normal 30108-7) [facility] [id number] 22:46:37 Test Item Value Reference Interpretation Comments Range TROPONIN I (test 0.046 ng/mL See_Comment H [Automated code = 5969458435) message] The system which generated this result [...] biotin. Lab Interpretation Abnormal (test code = 01576-9) [facility] GLUCOSE (AUTOMATED)2022-05-11 21:13:58 Test Item Value Reference Range Interpretation Comments POCT GLU (test code = 106 mg/dL 70-110 Notifi ed Provider [id number]) Lab Interpretation (test Normal code = 96205-9) [facility] GLUCOSE (AUTOMATED)2022-05-11 18:00:21 Test Item Value Reference Range Interpretation Comments POCT GLU (test code = 102 mg/dL 70-110 Notifi ed Provider [id number]) Lab Interpretation (test Normal code = 36757-0) [facility] [id number] 17:18:39 Test Item Value Reference Interpretation Comments Range TROPONIN I (test 0.051 ng/mL See_Comment H [Automated code = 6951209256) message] The system which generated this result [...] biotin. Lab Interpretation Abnormal (test code = 86958-5) [facility] CenterProthrombin Time (PT) / [id number] 17:09:02 Test Item Value Reference Range Interpretation Comments PROTIME PATIENT (test See_Comment H [Auto mated message] code = 5964-2) The system [employer] generated this result transmitted ref erence range: 10.1 - 1 2.6 Seconds. The reference range was not used to int erpret this result as normal/abnormal . INR (test code = 6301-6) Nor mal INR <1.1; Warfarin Therap eutic range 2.0 to 3. 0 or 2.5 to 3.5, dep ending upon the indica tions. Lab Interpretation (test Abnormal code = 07355-1) [facility] CenteraPTT2022-[facility]-09 17:09:02 Test Item Value Reference Range Interpretation Comments APTT Patient (test code = See_Comment [ Automated message] 3173-2) The system [employer] generated this result transmitted ref erence range: 26 - 36 Seconds. The re ference range was not u sed to interpret this result as normal/abnor mal. Lab Interpretation (test Normal code = 86208-5) [facility] CenterLactic Acid Whole [id number] 17:00:23 Test Item Value Reference Range Interpretation Comments LACTIC ACID (test code = 1.15 mmol/L 0.5-2.2 5017707659) Lab Interpretation (test code = Normal 06094-9) [facility] CenterP[facility]SE (AUTOMATED)2022-05-11 14:55:35 Test Item Value Reference Range Interpretation Comments POCT GLU (test code = 99 mg/dL 70-110 Notifi ed Provider [id number]) Lab Interpretation (test Normal code = 33339-4) [facility] CenterTroponin [id number] 03:41:52 Test Item Value Reference Interpretation Comments Range TROPONIN I (test 0.054 ng/mL See_Comment H [Automated code = 9227380523) message] The system which generated this result [...] biotin. Lab Interpretation Abnormal (test code = 22086-3) [facility] CenterGlycosylated Hemoglobin (A1C)2022-05-06 01:58:11 Test Item Value Reference Range Interpretation Comments HGB A1C (test code = 6.5 % 4-5.7 H 4548-4) JACOB (test code = JACOB) Reference RangesNormal: <5.7%Prediabetes: 5.7 - 6.4%Diabetes: > 6.5% Lab Interpretation (test Abnormal code = 92334-5) [facility] CenterThyroid Stimulating Hormone (TSH)2022-05-06 01:48:20 Test Item Value Reference Range Interpretation Comments TSH (test code = See_Comment Biotin has been 9751125630) reported to cau se a negative bias, interpret resul ts relative to pat ient's use of biotin. [Automated mess age] The system [employer] generated this result transmitted ref erence range: 0.45 - 4 .70 mIU/L. The refe rence range was not u sed to interpret this result as normal/abnor mal. Lab Interpretation (test Normal code = 51567-3) [facility] CenterN-TERMINAL [id number] 20:51:47 Test Item Value Reference Range Interpretation Comments NT-proBNP (test code 4320 pg/mL See_Comment H [Autom ated = 3309452366) message] The system which generated this result transmitted reference range : <=125. The reference range was not used to interpret this result as normal/abnormal . JACOB (test code = JACOB) Biotin has been reported to cause a negative bias, interpret results relative to patient's use of biotin. Lab Interpretation Abnormal (test code = 88763-2) [facility] CenterTROPONIN [id number] 20:29:07 Test Item Value Reference Interpretation Comments Range TROPONIN I (test 0.058 ng/mL See_Comment H [Automated code = 2018350315) message] The system which generated this result [...] biotin. Lab Interpretation Abnormal (test code = 77173-4) [facility] CenterMAGNESIUM2022-10-03 20:17:44 Test Item Value Reference Range Interpretation Comments MAGNESIUM (test code = 8687890761) 1.8 mg/dL 1.7-2.4 Lab Interpretation (test code = Normal 70811-4) [facility] CenterCOMP. METABOLIC PANEL (87589)2022-05-05 20:17:24 Test Item Value Reference Range Interpretation Comments NA (test code = 142 mmol/L 135-145 5827253503) K (test code = 4.1 mmol/L 3.5-5 6728259197) CL (test code = 108 mmol/L 98-108 7640361858) CO2 TOTAL (test code = 22 mmol/L 23-31 L 6911301478) AGAP (test code = 2-16 8656053892) BUN (test code = 22 mg/dL 7-23 5046432027) GLUCOSE (test code = 107 mg/dL 70-110 2248612338) CREATININE (test code = 1.30 mg/dL 0.6-1.25 H 6707825121) TOTAL BILI (test code = 0.6 mg/dL 0.1-1.0 7320686213) CALCIUM (test code = 9.3 mg/dL 8.6-10.6 2415908295) T PROTEIN (test code = 7.3 g/dL 6.3-8.2 2924484390) ALBUMIN (test code = 4.0 g/dL 3.5-5 8227635780) ALK PHOS (test code = 74 U/L 34-122 4171342380) ALTv (test code = 20 U/L 5-50 2-6) AST(SGOT) (test code = 28 U/L 13-40 2842053790) eGFR (test code = mL/min/1.73m2 8909386636) JACOB (test code = JACOB) Association of [...] tests). Lab Interpretation Abnormal (test code = 80502-4) [facility] WITH [id number] 20:17:03 Test Item Value Reference Range Interpretation Comments WBC (test code = See_Comment [Automated 0290-2) message] The sy stem which generated this [...] as normal/abnormal . HGB (test code = 13.0 g/dL 12.2-16.4 718-7) HCT (test code = 40.8 % 38.4-49.3 4544-3) MCV (test code = 79.7 fL 81.7-95.6 L 787-2) MCH (test code = 25.4 pg 26.1-32.7 L 785-6) MCHC (test code = 31.9 g/dL 31.2-35 786-4) RDW-SD (test code = 44.8 fL 38.5-51.6 65375-0) RDW-CV (test code = 15.5 % 12.1-15.4 H 788-0) PLT (test code = See_Comment [Automated 777-3) message] The sy stem which generated this result transmitted reference range : 150 - 328 10*3/ ?L. The reference r marino was not used to interpret this result as normal/abnormal . MPV (test code = 10.7 fL 9.8-13 42087-9) NRBC/100 WBC (test See_Comment [Automat ed code = 7835271215) message] The system which generated this result transmitted reference range : 0.0 - 10.0 /100 WBCs. The refer ence range was not u sed to interpret th is result as normal/abnormal . NRBC x10^3 (test code See_Comment [Auto mated = 6242078254) message] The s ystem which generated this result transmitted reference range : 10*3/?L. The reference range was not used to interpret this result as normal/abnormal . GRAN MAT (NEUT) % 52.8 % (test code = 770-8) IMM GRAN % (test code 0.20 % = 7936459736) LYMPH % (test code = 33.6 % 736-9) MONO % (test code = 11.4 % 5905-5) EOS % (test code = 1.6 % 713-8) BASO % (test code = 0.4 % 706-2) GRAN MAT x10^3(ANC) 2.95 10*3/uL 1.99-6.95 (test code = 3101961845) IMM GRAN x10^3 (test 0-0.06 code = 5047075996) LYMPH x10^3 (test code 1.88 10*3/uL 1.09-3.23 = 731-0) MONO x10^3 (test code 0.64 10*3/uL 0.36-1.02 = 742-7) EOS x10^3 (test code = 0.09 10*3/uL 0.06-0.53 711-2) BASO x10^3 (test code 0.01-0.09 = 704-7) Lab Interpretation Abnormal (test code = 19038-4) [facility] [id number] 12:18:51 Test Item Value Reference Range Interpretation Comments NT-proBNP (test code 1400 pg/mL See_Comment H [Autom ated = 2656016076) message] The system which generated this result transmitted reference range : <=125. The reference range was not used to interpret this result as normal/abnormal . JACOB (test code = JACOB) Biotin has been reported to cause a negative bias, interpret results relative to patient's use of biotin. Lab Interpretation Abnormal (test code = 03727-7) [facility] Center[facility] [id number] 12:13:54 Test Item Value Reference Range Interpretation Comments MAGNESIUM (test code = 7452503038) 1.9 mg/dL 1.7-2.4 Lab Interpretation (test code = Normal 79287-9) [facility] Metabolic Panel (NA, K, CL, CO2, GLUCOSE, BUN, CREATININE, CA)2022-04-30 12:13:34 Test Item Value Reference Range Interpretation Comments NA (test code = 138 mmol/L 135-145 8357362536) K (test code = 4.2 mmol/L 3.5-5 3730021890) CL (test code = 104 mmol/L 98-108 4768847907) CO2 TOTAL (test code = 26 mmol/L 23-31 4806123100) AGAP (test code = 2-16 5779908195) BUN (test code = 19 mg/dL 7-23 4634802593) GLUCOSE (test code = 113 mg/dL 70-110 H 4448677095) CREATININE (test code = 1.28 mg/dL 0.6-1.25 H 0476834410) CALCIUM (test code = 8.9 mg/dL 8.6-10.6 5840416050) eGFR (test code = mL/min/1.73m2 3524416388) JACOB (test code = JACOB) Association of [...] tests). Lab Interpretation Abnormal (test code = 50484-0) [facility] GLUCOSE (AUTOMATED)2022-04-30 01:21:02 Test Item Value Reference Range Interpretation Comments POCT GLU (test code = 8363433878) 129 mg/dL 70-110 H Lab Interpretation (test code = Abnormal 46965-3) [facility] GLUCOSE (AUTOMATED)2022-04-29 22:32:44 Test Item Value Reference Range Interpretation Comments POCT GLU (test code = 2851262365) 86 mg/dL 70-110 Lab Interpretation (test code = Normal 24730-1) [facility]OLIC PAN[facility] (34940)2022-04-29 17:43:38 Test Item Value Reference Range Interpretation Comments NA (test code = 137 mmol/L 135-145 4996241790) K (test code = 3.9 mmol/L 3.5-5 6581709300) CL (test code = 106 mmol/L 98-108 5067148835) CO2 TOTAL (test code = 22 mmol/L 23-31 L 5204913319) AGAP (test code = 2-16 0951383385) BUN (test code = 17 mg/dL 7-23 5500748910) GLUCOSE (test code = 103 mg/dL 70-110 9486594983) CREATININE (test code = 1.18 mg/dL 0.6-1.25 3249855167) TOTAL BILI (test code = 0.8 mg/dL 0.1-1.6 0469019408) CALCIUM (test code = 8.9 mg/dL 8.6-10.6 2676000396) T PROTEIN (test code = 6.9 g/dL 6.3-8.2 3302573575) ALBUMIN (test code = 3.8 g/dL 3.5-5 5671006098) ALK PHOS (test code = 65 U/L 34-122 6247905807) ALTv (test code = 18 U/L 5-50 1742-6) AST(SGOT) (test code = 25 U/L 13-40 1900761241) eGFR (test code = mL/min/1.73m2 4179145571) JACOB (test code = JACOB) Association of [...] tests). Lab Interpretation Abnormal (test code = 29734-5) [facility] CenterTRARNOL [id number] 17:02:13 Test Item Value Reference Interpretation Comments Range TROPONIN I (test 0.045 ng/mL See_Comment H [Automated code = 4201144558) message] The system which generated this result [...] biotin. Lab Interpretation Abnormal (test code = 75856-3) [facility] [id number] 17:00:29 Test Item Value Reference Range Interpretation Comments NT-proBNP (test code 1770 pg/mL See_Comment H [Autom ated = 8582594922) message] The system which generated this result transmitted reference range : <=125. The reference range was not used to interpret this result as normal/abnormal . JACOB (test code = JACOB) Biotin has been reported to cause a negative bias, interpret results relative to patient's use of biotin. Lab Interpretation Abnormal (test code = 13096-6) [facility] CenterPROTHROMBIN TIME / [id number] 15:56:43 Test Item Value Reference Range Interpretation Comments [...] tions. Lab Interpretation (test Normal code = 26143-1) [facility] CenterCBC WITH [id number] 15:48:01 Test Item Value Reference Range Interpretation Comments WBC (test code = See_Comment [Automated 7690-2) message] The sy stem which generated this result transmitted reference range : 4.20 - 10.70 10*3/?L. The reference range was not used to interpret this result as normal/abnormal . RBC (test code = See_Comment H [Automated 139-8) message] The sy stem which generated this result transmitted reference range : 4.26 - 5.52 10*6/?L. The reference range was not used to interpret this result as normal/abnormal . HGB (test code = 14.6 g/dL 12.2-16.4 718-7) HCT (test code = 46.8 % 38.4-49.3 4544-3) MCV (test code = 80.8 fL 81.7-95.6 L 787-2) MCH (test code = 25.2 pg 26.1-32.7 L 785-6) MCHC (test code = 31.2 g/dL 31.2-35 786-4) RDW-SD (test code = 45.0 fL 38.5-51.6 94533-2) RDW-CV (test code = 15.5 % 12.1-15.4 H 788-0) PLT (test code = See_Comment [Automated 777-3) message] The sy stem which generated this result transmitted reference range : 150 - 328 10*3/ ?L. The reference r marino was not used to interpret this result as normal/abnormal . MPV (test code = 11.6 fL 9.8-13 05163-8) NRBC/100 WBC (test See_Comment [Automat ed code = 7417986984) message] The system which generated this result transmitted reference range : 0.0 - 10.0 /100 WBCs. The refer ence range was not u sed to interpret th is result as normal/abnormal . NRBC x10^3 (test code See_Comment [Auto mated = 6709159769) message] The s ystem which generated this result transmitted reference range : 10*3/?L. The reference range was not used to interpret this result as normal/abnormal . GRAN MAT (NEUT) % 40.0 % (test code = 770-8) IMM GRAN % (test code 0.20 % = 5517876679) LYMPH % (test code = 47.3 % 736-9) MONO % (test code = 10.4 % 5905-5) EOS % (test code = 1.8 % 713-8) BASO % (test code = 0.3 % 706-2) GRAN MAT x10^3(ANC) 2.39 10*3/uL 1.99-6.95 (test code = 8555252482) IMM GRAN x10^3 (test 0-0.06 code = 1493911651) LYMPH x10^3 (test code 2.83 10*3/uL 1.09-3.23 = 731-0) MONO x10^3 (test code 0.62 10*3/uL 0.36-1.02 = 742-7) EOS x10^3 (test code = 0.11 10*3/uL 0.06-0.53 711-2) BASO x10^3 (test code 0.01-0.09 = 704-7) Lab Interpretation Abnormal (test code = 97095-4) [facility] [id number] 12:23:05 Test Item Value Reference Interpretation Comments Range TROPONIN I (test 0.037 ng/mL See_Comment H [Automated code = 6205159901) message] The system which generated this result transmitted reference range : <=0.034. The reference range was not used to interpret this result as normal/abnormal . JACOB (test code = Reference (Normal) JACBO) Range (defined by the 99th percentile reference [...] biotin. Lab Interpretation Abnormal (test code = 90673-6) [facility] (NA, K, CL, CO2, GLUCOSE, BUN, CREATININE, CA)2022-04-23 11:13:03 Test Item Value Reference Range Interpretation Comments NA (test code = 140 mmol/L 135-145 2078087380) K (test code = 3.9 mmol/L 3.5-5 7219579653) CL (test code = 105 mmol/L 98-108 3258057872) CO2 TOTAL (test code = 28 mmol/L 23-31 1716713033) AGAP (test code = 2-16 5875409849) BUN (test code = 23 mg/dL 7-23 4950539876) GLUCOSE (test code = 106 mg/dL 70-110 1999308479) CREATININE (test code = 1.37 mg/dL 0.6-1.25 H 7511355442) CALCIUM (test code = 8.8 mg/dL 8.6-10.6 8256941741) eGFR (test code = mL/min/1.73m2 3115106946) JACOB (test code = JACOB) Association of [...] tests). Lab Interpretation Abnormal (test code = 30070-6) [facility] Test Item Value Reference Range Interpretation Comments MAGNESIUM (test code = 2098210406) 1.6 mg/dL 1.7-2.4 L Lab Interpretation (test code = Abnormal 39429-4) [facility] WITH [id number] 09:54:13 Test Item Value Reference Range Interpretation Comments [...] as normal/abnormal . HGB (test code = 12.8 g/dL 12.2-16.4 718-7) HCT (test code = 40.7 % 38.4-49.3 4544-3) MCV (test code = 80.8 fL 81.7-95.6 L 787-2) MCH (test code = 25.4 pg 26.1-32.7 L 785-6) MCHC (test code = 31.4 g/dL 31.2-35 786-4) RDW-SD (test code = 45.6 fL 38.5-51.6 63014-0) RDW-CV (test code = 15.8 % 12.1-15.4 H 788-0) PLT (test code = See_Comment [Automated 777-3) message] The sy stem which generated this result transmitted reference range : 150 - 328 10*3/ ?L. The reference r marino was not used to interpret this result as normal/abnormal . MPV (test code = 11.5 fL 9.8-13 86443-6) NRBC/100 WBC (test See_Comment [Automat ed code = 2805957999) message] The system which generated this result transmitted reference range : 0.0 - 10.0 /100 WBCs. The refer ence range was not u sed to interpret th is result as normal/abnormal . NRBC x10^3 (test code See_Comment [Auto mated = 6972038241) message] The s ystem which generated this result transmitted reference range : 10*3/?L. The reference range was not used to interpret this result as normal/abnormal . GRAN MAT (NEUT) % 44.0 % (test code = 770-8) IMM GRAN % (test code 0.20 % = 7768772964) LYMPH % (test code = 42.1 % 736-9) MONO % (test code = 11.1 % 5905-5) EOS % (test code = 2.2 % 713-8) BASO % (test code = 0.4 % 706-2) GRAN MAT x10^3(ANC) 2.18 10*3/uL 1.99-6.95 (test code = 2976635155) IMM GRAN x10^3 (test 0-0.06 code = 4733670124) LYMPH x10^3 (test code 2.09 10*3/uL 1.09-3.23 = 731-0) MONO x10^3 (test code 0.55 10*3/uL 0.36-1.02 = 742-7) EOS x10^3 (test code = 0.11 10*3/uL 0.06-0.53 711-2) BASO x10^3 (test code 0.01-0.09 = 704-7) Lab Interpretation Abnormal (test code = 89078-2) [facility] [id number] 19:59:21 Test Item Value Reference Interpretation Comments Range TROPONIN I (test 0.027 ng/mL See_Comment [Automated code = 3878752592) message] The system which generated this result [...] biotin. Lab Interpretation Normal (test code = 12665-7) [facility] [id number] 19:56:01 Test Item Value Reference Range Interpretation Comments NT-proBNP (test code 887 pg/mL See_Comment H [Autom ated = 5644946193) message] The system which generated this result transmitted reference range : <=125. The reference range was not used to interpret this result as normal/abnormal . JACOB (test code = JACOB) Biotin has been reported to cause a negative bias, interpret results relative to patient's use of biotin. Lab Interpretation Abnormal (test code = 72359-0) [facility] CenterBAS[facility] MET[facility]OLIC PANEL (NA, K, CL, CO2, GLUCOSE, BUN, CREATININE, CA)2022-04-15 19:46:59 Test Item Value Reference Range Interpretation Comments NA (test code = 139 mmol/L 135-145 0882200978) K (test code = 4.3 mmol/L 3.5-5 2934809566) CL (test code = 102 mmol/L 98-108 1502755627) CO2 TOTAL (test code = 26 mmol/L 23-31 7452877656) AGAP (test code = 2-16 8215267344) BUN (test code = 26 mg/dL 7-23 H 8668182467) GLUCOSE (test code = 126 mg/dL 70-110 H 7883730596) CREATININE (test code = 1.60 mg/dL 0.6-1.25 H 7658476915) CALCIUM (test code = 9.4 mg/dL 8.6-10.6 8593331621) eGFR (test code = mL/min/1.73m2 5951956852) JACOB (test code = JACOB) Association of [...] tests). Lab Interpretation Abnormal (test code = 81529-9) [facility] WITH [id number] 19:21:29 Test Item Value Reference Range Interpretation Comments WBC (test code = See_Comment [Automated 3290-2) message] The sy stem which generated this result transmitted reference range : 4.20 - 10.70 10*3/?L. The reference range was not used to interpret this result as normal/abnormal . RBC (test code = See_Comment H [Automated 789-8) message] The sy stem which generated this result transmitted reference range : 4.26 - 5.52 10*6/?L. The reference range was not used to interpret this result as normal/abnormal . HGB (test code = 14.3 g/dL 12.2-16.4 718-7) HCT (test code = 45.4 % 38.4-49.3 4544-3) MCV (test code = 80.2 fL 81.7-95.6 L 787-2) MCH (test code = 25.3 pg 26.1-32.7 L 785-6) MCHC (test code = 31.5 g/dL 31.2-35 786-4) RDW-SD (test code = 45.1 fL 38.5-51.6 97734-2) RDW-CV (test code = 15.9 % 12.1-15.4 H 788-0) PLT (test code = See_Comment [Automated 177-3) message] The sy stem which generated this result transmitted reference range : 150 - 328 10*3/ ?L. The reference r marino was not used to interpret this result as normal/abnormal . MPV (test code = 10.8 fL 9.8-13 37801-0) NRBC/100 WBC (test See_Comment [Automat ed code = 0759495499) message] The system which generated this result transmitted reference range : 0.0 - 10.0 /100 WBCs. The refer ence range was not u sed to interpret th is result as normal/abnormal . NRBC x10^3 (test code See_Comment [Auto mated = 2749449142) message] The s ystem which generated this result transmitted reference range : 10*3/?L. The reference range was not used to interpret this result as normal/abnormal . GRAN MAT (NEUT) % 50.4 % (test code = 770-8) IMM GRAN % (test code 0.30 % = 4212507747) LYMPH % (test code = 37.0 % 736-9) MONO % (test code = 10.1 % 5905-5) EOS % (test code = 1.9 % 713-8) BASO % (test code = 0.3 % 706-2) GRAN MAT x10^3(ANC) 2.98 10*3/uL 1.99-6.95 (test code = 3089641592) IMM GRAN x10^3 (test 0-0.06 code = 9281873897) LYMPH x10^3 (test code 2.19 10*3/uL 1.09-3.23 = 731-0) MONO x10^3 (test code 0.60 10*3/uL 0.36-1.02 = 742-7) EOS x10^3 (test code = 0.11 10*3/uL 0.06-0.53 711-2) BASO x10^3 (test code 0.01-0.09 = 704-7) Lab Interpretation Abnormal (test code = 63083-3) [facility] [id number] 11:27:00 Test Item Value Reference Range Interpretation Comments GLUCOSE BEDSIDE TESTING (test code 109 mg/dL 70-110 N = GLUBED) BASIC METABOLIC [id number] 08:09:00 Test Item Value Reference Range Interpretation [...] CA) 9.5 MG/DL 8.5-10.1 N GLUCOSE BEDSIDE [id number] 07:15:00 Test Item Value Reference Range Interpretation Comments GLUCOSE BEDSIDE TESTING (test code 102 mg/dL 70-110 N = GLUBED) GLUCOSE BEDSIDE [id number] 23:04:00 Test Item Value Reference Range Interpretation Comments GLUCOSE BEDSIDE TESTING (test code 127 mg/dL 70-110 H = GLUBED) GLUCOSE BEDSIDE [id number] 20:03:00 Test Item Value Reference Range Interpretation Comments GLUCOSE BEDSIDE TESTING (test code 149 mg/dL 70-110 H = GLUBED) GLUCOSE BEDSIDE [id number] 16:55:00 Test Item Value Reference Range Interpretation Comments GLUCOSE BEDSIDE TESTING (test code 110 mg/dL 70-110 N = GLUBED) GLUCOSE BEDSIDE [id number] 11:23:00 Test Item Value Reference Range Interpretation Comments GLUCOSE BEDSIDE TESTING (test code 173 mg/dL 70-110 H = GLUBED) GLUCOSE BEDSIDE [id number] 08:33:00 Test Item Value Reference Range Interpretation Comments GLUCOSE BEDSIDE TESTING (test code 107 mg/dL 70-110 N = GLUBED) DRUGS OF ABUSE SCREEN [id number] 06:11:00 Test Item Value Reference Range Interpretation [...] to interpret this result as normal/abnormal . [id number] 20:43:00 Test Item Value Reference Range Interpretation [...] Completed by Nursing: NO- CTA CHEST FOR [id number] 18:35:00 [facility] 1965 Sex: M Name: WILMER PARADA [facility] : 1965 Age/S: 55 / M [address] [place] Unit #: [id number]: [place] [address] Phys: Isac Rouse DO Acct: [id number] Dis Date: Status: REG ER PHONE #: [phone] Exam Date: 02/27/2021 1800 FAX #: Reason: chest pain, elevated ddimer EXAMS: CPT: [id number] [place] [address] Location of dictation: B2 CTA of the chest with contrast, PE protocol CLINICAL INDICATION: Chest pain and elevated d-dimer. Comments: [...] pericardial effusion and no cardiac decompensation. A left-sided pacemaker is in place. Mediastinumand hermelinda: No abnormal mass or adenopathy. Lungs and pleura: No consolidation, pneumothorax or effusion Bones and soft tissues: No abnormality noted with degenerative changes in the spine. Upper abdomen: No acute findings. IMPRESSION: 1. No evidence for pulmonary embolism, aneurysm or dissection. 2. Ca rdiomegaly with left ventricular configuration. Pacemaker in place with no cardiac decompensation. 3. Otherwise no acute findings in the chest. PAGE 1 Signed Report (CONTINUED) Name: WILMER PARADA [facility] : 1965 Age/S: 55 / M [address] [place] Unit #: [id number] Loc: [place] [address] Phys: Isac Rouse DO Acct: [id number] Dis Date: Status: REG ER PHONE #: [phone] Exam Date: 02/27/2021 1800 FAX #: Reason: chest pain, elevated ddimer EXAMS: CPT: [id number] [place] [address] (Continued) at 1835 Reported and signed by: April Marsh M.D. CC: Isac Rouse DO Technologist:RT iTm(R)(CT)(MRI) CTDI: DLP:Trnscb Date/Time: 02/27/2021 (183) Zena Orig Print D/T: S: 02/27/2021 (1838) PAGE 2 [facility]igned [facility]COVID [facility] 14:54:00 Test Item Value Reference Range Interpretation Comments COVID 19 INHOUSE [facility] NEGATIVE Negative Per manu facturer, (test code = negative result s should CLBNG50IMBM) be treated aspr esumptive and, if inconsi stent with clinical signs andsymptoms or necessary for patient man agement, should betested with an alternative mol ecular assay. Negative resultsdo not preclude SA RS-CoV-2 infection and s hould not be usedas the s ole basis for patient man agement decisions. Nega tive results should be considered in t he context of apatient's r ecent exposures, hist ory, presence of cli nicalsigns and symptoms co nsistent with COVID-19. [id number] 13:38:00 Test Item Value Reference Range Interpretation [...] APPROPRIATECLIN ICAL EUALUATIONS. - XR CHEST 1 [id number] 13:35:00 [facility] 1965 Sex: M Name: WILMER PARADA [facility] : 1965 Age/S: 55 / M [address] [place] Unit #: [id number]: [place] [address] Phys: Isac Rouse DO Acct: [id number] Dis Date: Status: REG ER PHONE #: [phone] Exam Date: 02/27/2021 1320 FAX #: Reason: chest pain EXAMS: CPT: [id number] XR CHEST 1 V 40501 Fluoro Time: DAP (Gy m2): Air Kerma (mGy): Location of dictation: B2 Portable chest one view. HISTORY: chest pain COMMENT: Compared to 02/04/2021. A left-sided pacemaker is again seen. The heart isslightly smaller, mild interstitial prominence also unchanged with no florid cardiac decompensation and no new consolidation, pneumothorax or effusion. Visualized soft tissues and skeletal structures are unremarkable. IMPRESSION: Less congestive appearance of the chest with no acute findings. at 1688 Reported and signed by: April Marsh M.D.CC: Isac Rouse DO PAGE 1 Signed Report Name: WILMER PARADA [facility] : 1965 Age/S: 55 / M [address] [facility] Unit #: [id number] Loc: [place] [address] Phys: Isac Rouse DO Acct: [id number] Dis Date: Status: REG ER PHONE #: [phone] Exam Date: 02/27/2021 1320 FAX #: Reason: chest pain EXAMS: CPT: [id number] XR CHEST 1 V 60598 Fluoro Time: DAP (Gy m2): Air Kerma (mGy): (Contin ued) Technologist: Bandar Tirado RT(R)(CT) Trnscb Date/Time: 02/27/2021 (7850) Zena Orig Print D/T: S: 02/27/2021 (0465) PAGE 2 Signed ReportBASIC METABOLIC [id number] 13:29:00 Test Item Value Reference Range Interpretation [...] CK) Completed by Nursing: NONT PRO-BRAIN NATRIURETIC [id number] 13:29:00 Test Item Value Reference Range Interpretation Comments NT PRO-BRAIN NATRIURETIC PEPTI 1727 PG/ML 0-100 H (test code = PROBNP) Completed by Nursing: [id number] 13:29:00 Test Item Value Reference Range Interpretation [...] yby method. 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 [facility] [id number] 08:13:00 Test Item Value Reference Range Interpretation Comments GLUBED (test code = 101 MG/DL 70-110 N Performe d by certified GLUBED) 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 [facility] [id number] 07:50:00 Test Item Value Reference Range Interpretation Comments HGBA1C% (test code = HGBA1C%) 5.9 %A1C 4.8-6.0 N BASIC METABOLIC [id number] 07:33:00 Test Item Value Reference Range Interpretation [...] mg/dL 8.0-10.5 N CA) TSH REFLEX TO [id number] 07:33:00 Test Item Value Reference Range Interpretation Comments TSH REFLEX TO FT4 (test code = 0.50 IU/mL 0.42-5.47 N TSHREFLEX) BASIC METABOLIC [id number] 07:28:00 Test Item Value Reference Range Interpretation [...] mg/dL 8.0-10.5 N CA) TSH REFLEX TO [id number] 07:28:00 Test Item Value Reference Range Interpretation Comments TSH REFLEX TO FT4 (test code = IU/mL 0.42-5.47 TSHREFLEX) CBC W/AUTO [id number] 07:23:00 Test Item Value Reference Range Interpretation [...] DIFF REQUIRED (test code NO = MDIFF) [id number] 20:49:00 Test Item Value Reference Range Interpretation Comments GLUBED (test code = 129 MG/DL 70-110 H Performe d by certified GLUBED) 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 HDL CHOLESTEROL 30.5 mg/dL 32-72 L (test code = HDL) LIPOPROTEIN LDL 160.1 mg/dL 0-100 H <100 OPTIMAL 100-129 (test code = LDL) NEAR OPTIM AL/ABOVE [id number] [id number] 89 HIGH>SK=741 KAMRON Y HIGH*Guidelines provided by the [facility] CBC W/AUTO [id number] 04:22:00 Test Item Value Reference Range Interpretation [...] (test code NO = MDIFF) CBC W/AUTO [id number] 04:21:00 Test Item Value Reference Range Interpretation [...] MANUAL DIFF REQUIRED (test code = MDIFF) [id number] 00:46:00 Test Item Value Reference Range Interpretation Comments TROPONIN-I 0.090 ng/mL 0.000-0.045 H Negative: <= 0. 045 Positive: (test code = >= 0.046 Correl ation with TROPI) serial results, other cardiac markers andclin ical findings is necessary to determine the clinicalsignifi cance of this result. Results using different metho dologies should not be c omparedto one another as kyle titative results may suzy y by method. LIPOPROTEIN [id number] 22:00:00 Test Item Value Reference Range Interpretation Comments LIPOPROTEIN LDL 166.8 mg/dL 0-100 H <100 OPTIMAL 100-129 (test code = LDL) NEAR OPTIM AL/ABOVE [id number] 89 HIGH>KK=267 KAMRON Y HIGH*Guidelines provided by the [facility] terol [facility] Adult Treatment Panel III [id number] 21:44:00 Test Item Value Reference Range Interpretation Comments TROPONIN-I 0.098 ng/mL 0.000-0.045 H Negative: <= 0. 045 Positive: (test code = >= 0.046 Correl ation with TROPI) serial results, other cardiac markers andclin ical findings is necessary to determine the clinicalsignifi cance of this result. Results using different metho dologies should not be c omparedto one another as kyle titative results may suzy y by method. 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 [facility] UA RFLX MICR CULT IF [id number] 18:05:00 Test Item Value Reference Range Interpretation [...] Indication for culture: Dysuria/FrequencyDRUGS OF ABUSE SCREEN [id number] 18:05:00 Test Item Value Reference Range Interpretation [...] Indication for culture: Dysuria/FrequencyDRUGS OF ABUSE SCREEN [id number] 17:28:00 Test Item Value Reference Range Interpretation Comments URN COCAINE (test code = SCcutoff See_Comment [A utomated message] COCAURN) The system [employer] generated this result transmit breanne reference range [...] See_Comment [A utomated message] OPIATURN) The system [employer] generated this result transmit breanne reference range [...] [A utomated message] = METHAURN) The system [employer] generated this result transmit breanne reference range [...] Indication for culture: Dysuria/FrequencyDRUGS OF ABUSE SCREEN [id number] 17:23:00 Test Item Value Reference Range Interpretation [...] See_Comment [A utomated message] OPIATURN) The system [employer] generated this result transmit breanne reference range [...] [A utomated message] = METHAURN) The system [employer] generated this result transmit breanne reference range : <300 NG/ML. The reference range was not used to interpret this result as normal/abnormal . Indication for culture: Dysuria/Frequency- CTA CHEST FOR [id number] 16:11:00 [facility] 1965 Sex: M Name: WILMER PARADA [facility] : 1965 Age/S: 55 / M [address] [address] [place] Unit #: [id number]: [place] [address] Phys: Isac Rouse DO Acct: [id number] Dis Date: Status: REG ER PHONE #: [phone] Exam Date: 02/04/2021 1540 FAX #: Reason: chest pain EXAMS: CPT: [id number] CTA CHEST FOR PE EXAM: - CTA [...] is borderline four-chamber dilation of the heart. Thepericardium is unremarkable. Left chest wall 3-lead defibrillator is noted with leads in appropriateposition. The thoracic aorta is nonaneurysmal. No significant aortic atherosclerosis. Minimal coronary artery calcifications. The esophagus is grossly unremarkable. VISUALIZED ABDOMEN: There is reflux of contrast into the hepatic veins. The visualized upper abdomen is unremarkable. SOFT TISSUES: Left chest wall defibrillator noted. PAGE 1 Signed Report (CONTINUED) Name[facility] SherrardDOB: 1965 Age/S: 55 / M [address] [address] [place] Unit #: [id number] Loc: [place] [address] Phys: Isac Alford DO Acct: [id number] Dis Date: Status: REG ER PHONE #: [phone] Exam Date: 02/04/2021 1540 FAX #: Reason: chest pain EXAMS: CPT: [id number] CTA CHEST FOR PE (Continued) BONES: Noacute osseous findings. Mild thoracic texture scoliosis. IMPRESSION: 1. No pulmonary embolism. No acute findings throughout the lungs. 2. Borderline dilated heart chambers. at 1611 Reported and signed by: Luis Rogers D.O. CC: Isac Rouse DO; Afua DARNELL Technologist:Carmen Ruggiero, RT(R) CTDI: DLP: Trnscb Date/Time: 02/04/2021 (1611) [email or web address] Orig Print D/T: S: 02/04/2021 (6711) PAGE 2 Signed [id number] 14:30:00 Test Item Value Reference Range Interpretation Comments D-DIMER (test code = DDIMER) 979 ng/mLFEU 215-500 HH BASIC METABOLIC [id number] 14:03:00 Test Item Value Reference Range Interpretation [...] Unit/L 26-192 H CK) Completed by Nursing: [id number] 14:03:00 Test Item Value Reference Range Interpretation [...] method. Completed by Nursing: NOCOVID 19 INHOUSE [id number] 13:50:00 Test Item Value Reference Range Interpretation Comments COVID 19 INHOUSE AG NEGATIVE Negative Per manu facturer, (test code = negative result s should [id number]) be treated aspr esumptive and, if inconsi stent with clinical signs andsymptoms or necessary for patient man agement, should betested with an alternative mol ecular assay. Negative resultsdo not preclude SA RS-CoV-2 infection and s hould not be usedas the s ole basis for patient man agement decisions. Nega tive results should be considered in t he context of apatient's r ecent exposures, hist ory, presence of cli nicalsigns and symptoms co nsistent with COVID-19. - XR CHEST 1 [id number] 13:44:00 [facility] : 1965 Sex: M Name: WILMER PARADA [facility] : 1965 Age/S: 55 / M [address] [address] [place] Unit #: [id number]: [place] [address] Phys: Isac Rouse DO Acct: [id number] Dis Date: Status: PRE ER PHONE #: [phone] Exam Date: 02/04/2021 1326 FAX #: Reason: chest pain EXAMS: CPT: [id number] XR CHEST 1 V 71366 Fluoro Time: DAP (Gy m2): Air Kerma (mGy): HISTORY: Chest pain Location code: B2 FINDINGS: Frontal view of the chest demonstrates a mildly enlarged cardiomediastinal silhouette, with central venous congestion. The trachea is midline. The lungs are clear. There is no effusion or pneumothorax. The bones are intact. Left pacer device is intact. IMPRESSION: 1. Mild cardiomegaly and central venouscongestion, without acute decompensation. at 1344 Reported and signed by: Geoff Scott M.D. CC: Isac Rouse DO; Afua DARNELL PAGE 1 Signed Report Name: WILMER PARADA : 1965 Age/S: 55 / M [address] [address] [place] Unit #: [id number] Loc: [place] [address] Phys: Isac Rouse DO Acct: [id number] Dis Date: Status: PRE ER PHONE #: [phone] Exam Date: 02/04/2021 1326 FAX #: Reason: chest pain EXAMS: CPT: [id number] XR CHEST 1 V 39239 Fluoro Time: DAP (Gy m2): Air Kerma (mGy): (Continued) Technologist: Carmen Ruggiero RT(R) Trnscb Date/Time: 02/04/2021 (134) VikramRK5 Orig Print D/T: S: 02/04/2021 (8988) PAGE 2 Signed ReportCBC W/O [id number] 13:36:00 Test Item Value Reference Range Interpretation [...] 10.90 fL 7.0-9.6 H MPV) BASIC METABOLIC [id number] 12:58:00 Test Item Value Reference Range Interpretation [...] CA) 9.0 MG/DL 8.5-10.1 N CBC W/AUTO [id number] 12:51:00 Test Item Value Reference Range Interpretation [...] (test code = CHOL/HDL RATIOS: RISK CHOLHDL) MALE FEMALE1/2 AVERAGE 3.43 3.27AVERAG E 4.97 4.442X AVERAGE 9.55 7.053X AVERAGE 23.39 11.04 NOTE THAT THE REFERENCE VALUE IS RELATED TO RISK [...] LIPOPROTEIN LDL 119 MG/DL 0-129 N <100 OPTIMAL 100 - 129 (test code = LDL) NEAR OPTIM AL/ABOVE [id number] - 15 9 [id number] - 189 HIGH>OR= 190 VE RY HIGHNOTE THAT G UIDELINES ARE PROVIDED BY NATIONAL CHOLESTEROLEDUC ATION PROGRAM ADULT T REATMENT PANEL III LDL/HDL (test code 3.05 Ratio See_Comment N [Automat ed message] The = LDL/HDL) system which [email or web address] nerated this result tra nsmitted reference range : 1.48-3.22 Avg. The reference range was not used to interpr et this result as normal/abnormal . GLYCOSYLATED HEMOGLOBIN [id number] 12:24:00 Test Item Value Reference Range Interpretation Comments GLYCOSYLATED HEMOGLOBIN (HA1C) 5.8 % A1C 0.0-5.7 H (test code = GLYHGB) ESTIMATED AVERAGE GLUCOSE (test 120 MG/DLest code = EAG) GLUCOSE BEDSIDE [id number] 12:05:00 Test Item Value Reference Range Interpretation Comments GLUCOSE BEDSIDE TESTING (test code 151 mg/dL 70-110 H = GLUBED) - XR CHEST 1 [id number] 11:05:00 [facility] : 1965 Sex: M Name: WILMER PARADA [facility] : 1965 Age/S: 55 / M [address] [address] [place] Unit #: [id number]: [place] [address] Phys: KarthikeyanRosinaimmanuel GONZALEZ Acct: [id number] Dis Date: Status: ADM IN PHONE #: [phone] Exam Date: 01/07/2021 1050 FAX #: Reason: Cough EXAMS: CPT: [id number] XR CHEST 1 V 40842 Fluoro Time: DAP (Gy m2): Air Kerma (mGy): EXAMINATION: Frontal chest radiograph INDICATION: Cough COMPARISON: 01/03/2021 LOCATION: C1 FINDINGS: Enlarged cardiac silhouette with left chest defibrillator. No definite pleural effusion or pneumothorax. No definite acute abnormality seen in the lungs accounting for overlying prominent soft tissues. IMPRESSION: No definite acute abnormality. at 1105 Reported and signed by: Vernon Garibay M.D. CC: Yared Scott MD; Rolando Napier PAGE 1 Signed Report Name: [facility] [place] : 1965 Age/S: 55 / M [address] [address] [place] Unit #: [id number] Loc: [place] [address] Phys: Rosina Napierimmanuel IGLESIAS Acct: [id number] Dis Date: Status: ADM IN PHONE #: [phone] Exam Date: 01/07/2021 1050 FAX #: Reason: Cough EXAMS: CPT: [id number] XR CHEST 1 V 70073 Fluoro Time: DAP (Gy m2): Air Kerma (mGy): (Continued) Technologist: Jonna Ramirez RT(R)(MR) Trnscb Date/Time: 01/07/2021 (1105) t.[email or web address] Orig Print D/T: S: 01/07/2021 (1108) PAGE 2 Signed Report GLUCOSE BEDSIDE [id number] 08:05:00 Test Item Value Reference Range Interpretation Comments GLUCOSE BEDSIDE TESTING (test code 105 mg/dL 70-110 N = GLUBED) GLUCOSE BEDSIDE [id number] 21:27:00 Test Item Value Reference Range Interpretation Comments GLUCOSE BEDSIDE TESTING (test code 100 mg/dL 70-110 N = GLUBED) GLUCOSE BEDSIDE [id number] 16:40:00 Test Item Value Reference Range Interpretation Comments GLUCOSE BEDSIDE TESTING (test code = 89 mg/dL 70-110 N GLUBED) GLUCOSE BEDSIDE [id number] 12:10:00 Test Item Value Reference Range Interpretation Comments GLUCOSE BEDSIDE TESTING (test code = 94 mg/dL 70-110 N GLUBED) GLUCOSE BEDSIDE [id number] 07:51:00 Test Item Value Reference Range Interpretation Comments GLUCOSE BEDSIDE TESTING (test code 102 mg/dL 70-110 N = GLUBED) GLUCOSE BEDSIDE [id number] 20:30:00 Test Item Value Reference Range Interpretation Comments GLUCOSE BEDSIDE TESTING (test code = 98 mg/dL 70-110 N GLUBED) GLUCOSE BEDSIDE [id number] 15:39:00 Test Item Value Reference Range Interpretation Comments GLUCOSE BEDSIDE TESTING (test code 102 mg/dL 70-110 N = GLUBED) - CT ANGIO [id number] 14:06:00 [facility] : 1965 Sex: M Name: WILMER PARADA [facility] : 1965 Age/S: 55 / M [address] [address] [place] Unit #: [id number]: [place] [address] Phys: Anabela Le MD Acct: [id number] Dis Date: Status: ADM IN PHONE #: [phone] Exam Date: 01/05/2021 1335 FAX #: Reason: CVA EXAMS: CPT: [id number] CT ANGIO NECK [address] Exam: - CT ANGIO HEAD, - CT ANGIO NECK Location: B2 HISTORY: CVA, COMPARISON: 01/03/2021 TECHNIQUE: Axial images of the neck and head were obtained after administration of 100 mL Isovue-370 intravenous contrast. Images were reformatted to create coronal and sagittal maximum intensity projections.One or more of the following dose reduction techniques were used: Automated exposure control, adjustment of the mA and/or kV according to patient size, and/or utilization of iterative reconstruction technique. GFR: Greater than 60 , Creatinine: 1.2 mg/dL DLP: 1184 mGy-cm. FINDINGS: CTA Neck Aorta andgreat vessel origins: No significant plaque at the aortic arch. No occlusion or significant stenosisat the origins of the innominate, left common carotid and left subclavian arteries are within normallimits. Carotid arteries: Common carotid arteries are normal in caliber. Carotid bifurcations [...] is no stenosis, occlusion or dissection. The degreeof stenosis is based on end vessel luminal diameter per NASCET criteria. Neck: Fascial planes: Nodules are redemonstrated within the thyroid gland. Largest in the left thyroid lobe measures 2.9 cm, unchanged. Further characterization with thyroid ultrasound is recommended. Remaining PAGE 1 Signed Report (CONTINUED) Name: WILMER PARADA [place] : 1965 Age/S: 55 / M [address] [address] [place] Unit #: [id number] Loc: [place] [address] Phys: Anabela Le MD Acct: [id number] Dis Date: Status: ADM IN PHONE #: [phone] Exam Date: 01/05/2021 5986 FAX #: Reason: CVA EXAMS: CPT: [id number] CT ANGIO NECK [address] (Continued) visualized fascial planes of the neck are unremarkable. Lymph nodes: There is [...] better characterized with ultrasound on nonemergent basis. FINDINGS: CTA Head Internal carotid arteries: Patent. No significant [...] 2 Signed Report (CONTINUED) Name: [facility] [place] : 1965 Age/S: 55 / M [address] [address] [place] Unit #: [id number] Loc: [place] [address] Phys: Anabela Le MD Acct: [id number] Dis Date: Status: ADM IN PHONE #: [phone] Exam Date: 01/05/2021 1336 FAX #: Reason: CVA EXAMS: CPT: [id number] CT ANGIO NECK [address] (Continued) Posterior communicating arteries: Not visualized Distal cerebral arteries: Slight irregularity of distal cerebral arteries which may be in part artifactual although further vasculopathy is not excluded. There is no large vessel occlusion. There is no significant stenosis. No aneurysmal dilatation or vascular malformation. Dural venous sinuses: No visualized filling defects. Head with contrast: There is no acute intracranial hemorrhage, mass, mass effec t, midline shift or extra-axial fluid collection. No abnormal parenchymal or leptomeningeal enhancement is present. The baker-white differentiation is maintained without evidence for acute major vesselinfarct. There are areas of decreased attenuation within subcortical deep white matter which are nons pecific. Left globe prosthetic is present. There is mild mucosal thickening of the bilateral ethmoidair cells and right maxillary sinus. Dehiscence of [...] 3 Signed Report (CONTINUED) Name: WILMER PARADA [place] : 1965 Age/S: 55 / M [address] [address] [place] Unit #: [id number] Loc: [place] [address] Phys: Anabela Le MD Acct: [id number] Dis Date: Status: ADM IN PHONE #: [phone] Exam Date: 01/05/2021 1333 FAX #: Reason: CVA EXAMS: CPT: [id number] CT ANGIO NECK [address] (Continued) CC: Anabela Le MD; Yared Scott MD Technologist:Criss Sahni RT(R)(CT); .. CTDI: DLP: Trnscb Date/Time: 01/05/2021 (140) [email or web address] Orig Print D/T: S: 01/05/2021 (1410) PAGE 4 Signed Report- CT ANGIO [id number] 14:06:00 [facility] : 1965 Sex: M [facility] [place] : 1965 Age/S: 55 / M [address] [address] [place] Unit #: [id number]: [place] [address] Phys: Anabela Le MD Acct: [id number] Dis Date: Status: ADM IN PHONE #: [phone] Exam Date: 01/05/2021 1330 FAX #: Reason: CVA EXAMS: CPT: [id number] CT ANGIO HEAD [address] Exam: - CT ANGIO HEAD, - CT ANGIO NECK Location: B2 HISTORY: CVA, COMPARISON: 01/03/2021 TECHNIQUE: Axial images of the neck and head were obtained after administration of 100 mL Isovue-370 intravenous contrast. Images were reformatted to create coronal and sagittal maximum intensity projections. One or more of the following dose reduction techniques were used: Automated exposure control, adjustment of the mA and/or kV according to patient size, and/or utilization of iterative reconstruction technique. GFR: Greater than 60 , Creatinine: 1.2 mg/dL DLP: 1184 mGy-cm. FINDINGS: CTA Neck Aorta andgreat vessel origins: No significant plaque at the aortic arch. No occlusion or significant stenosisat the origins of the innominate, left common carotid and left subclavian arteries are within normallimits. Carotid arteries: Common carotid arteries are normal in caliber. Carotid bifurcations [...] is no stenosis, occlusion or dissection. The degreeof stenosis is based on end vessel luminal diameter per NASCET criteria. Neck: Fascial planes: Nodules are redemonstrated within the thyroid gland. Largest in the left thyroid lobe measures 2.9 cm, unchanged. Further characterization with thyroid ultrasound is recommended. Remaining PAGE 1 Signed Report (CONTINUED) Name: WILMER PARADA [facility] : 1965 Age/S: 55 / M [address] [address] [place] Unit #: [id number] Loc: [place] [address] Phys: Anabela Le MD Acct: [id number] Dis Date: Status: ADM IN PHONE #: [phone] Exam Date: 01/05/2021 1330 FAX #: Reason: CVA EXAMS: CPT: [id number] ANGIO HEAD [address] (Continued) visualized fascial planes of the neck are unremarkable. Lymphnodes: There is no cervical adenopathy. Bones: Spondylosis is noted in the mid cervical spine. Thereis reversal of normal cervical lordosis. No discrete osteolytic or osteosclerotic lesions are seen. Thorax: No significant abnormality. IMPRESSION: CTA neck 1. No stenosis, occlusion or dissection of the common or internal carotid arteries or vertebral arteries. 2. Nodules within the thyroid gland which can be better characterized with ultrasound on nonemergent basis. FINDINGS: CTA Head Internal carotid arteries: Patent. No significant [...] 2 Signed Report (CONTINUED) Name[facility] : 1965 Age/S: 55 / M [address] [address] [place] Unit #: [id number] Loc: [place] [address] Phys: Anabela Le MD Acct: [id number] Dis Date: Status: ADM IN PHONE #: [phone] Exam Date: 01/05/2021 1330 FAX #: Reason: CVA EXAMS: CPT: [id number] CT ANGIO HEAD [address] (Continued) Posterior communicating arteries: Not visualized Distal cerebral arteries: Slight irregularity of distal cerebral arteries which may be in part artifactual although further vasculopathy is not excluded. There is no large vessel occlusion. There is no significant stenosis. No aneurysmal dilatation or vascular malformation. Dural venous sinuses: No visualized filling defects. Head with contrast: There is no acute intracranial hemorrhage, mass, mass effect, mi dline shift or extra-axial fluid collection. No abnormal parenchymal or leptomeningeal enhancement is present. The baker-white differentiation is maintained without evidence for acute major vessel infarct. There are areas of decreased attenuation within subcortical deep white matter which are nonspecifi c. Left globe prosthetic is present. There is mild mucosal thickening of the bilateral ethmoid air cells and right maxillary sinus. Dehiscence of the medial wall of the right orbit is noted. Bones of the calvaria and skull base are otherwise intact. IMPRESSION: CTA Head 1. No large vessel occlusion. No significant stenosis. No aneurysmal dilatation or vascular malformation. 2. Slight irregularity ofdistal cerebral arteries may be in part artifactual although further vasculopathy is considered. at 1406 Reported and signed by: Diego Paez M.D. PAGE 3 Signed Report (CONTINUED) Name[facility] : 1965 Age/S: 55 /M [address] [address] [place] Unit #: [id number] Loc: [place] [address] Phys: Anabela Le MD Acct: [id number] Dis Date: Status: ADM IN PHONE #: [phone] Exam Date: 01/05/2021 1330 FAX #: Reason:CVA EXAMS: CPT: [id number] CT ANGIO HEAD [address] (Continued) CC: Anabela Le MD; Yared Scott MD Technologist:Criss Sahni, RT(R)(CT); .. CTDI: DLP: Trnscb Date/Time: 01/05/2021 (1406) [email or web address] Orig Print D/T: S: 01/05/2021 (1410) PAGE 4 Signed ReportBASIC METABOLIC [id number] 12:38:00 Test Item Value Reference Range Interpretation [...] CA) 9.0 MG/DL 8.5-10.1 N CBC W/AUTO [id number] 12:28:00 Test Item Value Reference Range Interpretation [...] code NO DIFF/SCN CRITERIA = MDIFF) PROTHROMBIN [id number] 12:27:00 Test Item Value Reference Range Interpretation Comments PT PATIENT (test code = PTP) 12.1 SECONDS 9.3-12.9 N INTERNATIONAL NORMAL RATIO 1.08 INR Unit 0.8-1.2 N (test code = INR) THROMBOPLASTIN TIME [id number] 12:27:00 Test Item Value Reference Range Interpretation Comments THROMBOPLASTIN TIME PARTIAL 33.0 SECONDS 26-35 N (test code = PTT) GLUCOSE BEDSIDE [id number] 11:56:00 Test Item Value Reference Range Interpretation Comments GLUCOSE BEDSIDE TESTING (test code 101 mg/dL 70-110 N = GLUBED) - CT HEAD/BRAIN W/O [id number] 11:53:00 [facility] : 1965 Sex: M Name: WILMER PARADA [facility] : 1965 Age/S: 55 / M [address] [address] [place] Unit #: [id number]: [place] [address] Phys: Susan Conway MD Acct: [id number] Dis Date: Status: ADM IN PHONE #: [phone] Exam Date: 01/05/2021 0265 FAX #: Reason: left sided weakness EXAMS: CPT: [id number] CT H EAD/BRAIN W/O CONT 65571 EXAM: CT Head without contrast Location: B2 HISTORY: Left-sided weakness, CVA COMPARISON: 01/03/2021 TECHNIQUE: Multiple transaxial images of the brain were obtained without intravenous contrast. Images were reformatted to create coronal and sagittal reconstructions. One or moreof the following dose reduction techniques were used: Automated exposure control, adjustment of themA and/or kV according to patient size, and/or utilization of iterative reconstruction technique. DLP: 804 mGy-cm. FINDINGS: There is no acute intracranial hemorrhage. There is no mass, mass effect, midline shift or extra- axial fluid collection. Brain parenchymal volume and ventricular caliber are within normal limits. Baker-white differentiation is maintained. There is no evidence for acute major vessel infarct. There are areas of decreased attenuation within subcortical deep white matter which are nonspecific. 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 There is mild mucosal thickening of the ethmoid air cells. Remaining paranasal sinuses are clear. Mastoid air cells are clear. Bones of the calvaria and skullbase are intact. IMPRESSION: 1. Stable examination. No acute intracranial abnormality. No acute hemorrhage, mass lesion or infarct. 2. Stable, chronic small vessel ischemic white matter disease. 3. Mild inflammatory disease of the ethmoid air cells. Preliminary findings were given to SAMUEL Zuñiga in the IMU at 1151 hours PAGE 1 Signed Report (CONTINUED) Name: WILMER PARADA [facility] : 1965 Age/S: 55 / M [address] [address] [place] Unit #: [id number] Loc: [place] [address] Phys: Susan Conway MD Acct: [id number] Dis Date: Status: ADM IN PHONE #: [phone] Exam Date: 01/05/2021 1133 FAX #: Reason: left sided weakness EXAMS: CPT: [id number] CT HEAD/BRAIN W/O CONT 75558 (Continued) on 01/05/2021 FOR INTERNAL CODING PURPOSES ONLY RESULT CODE: CVR at 1153 Reported and signed by: Diego Paez M.D. CC: Susan Conway MD; Yared Scott MD Technologist:Criss Sahni, RT(R)(CT); .. CTDI: DLP: Trnscb Date/Time: 01/05/2021 (8372) [email or web address].[email or web address] Orig Print D/T: S: 01/05/2021 (5355) PAGE 2 Signed ReportGLUCOSE BEDSIDE TESTING 2021-01-05 07:54:00 Test Item Value Reference Range Interpretation Comments GLUCOSE BEDSIDE TESTING (test code 118 mg/dL 70-110 H = GLUBED) GLUCOSE BEDSIDE [id number] 21:52:00 Test Item Value Reference Range Interpretation Comments GLUCOSE BEDSIDE TESTING (test code = 98 mg/dL 70-110 N GLUBED) GLUCOSE BEDSIDE [id number] 15:47:00 Test Item Value Reference Range Interpretation Comments GLUCOSE BEDSIDE TESTING (test code 124 mg/dL 70-110 H = GLUBED) GLUCOSE BEDSIDE [id number] 11:34:00 Test Item Value Reference Range Interpretation Comments GLUCOSE BEDSIDE TESTING (test code 107 mg/dL 70-110 N = GLUBED) GLUCOSE BEDSIDE [id number] 07:37:00 Test Item Value Reference Range Interpretation Comments GLUCOSE BEDSIDE TESTING (test code 109 mg/dL 70-110 N = GLUBED) BASIC METABOLIC [id number] 04:53:00 Test Item Value Reference Range Interpretation [...] code = CA) 8.7 MG/DL 8.5-10.1 N [id number] 04:53:00 Test Item Value Reference Range Interpretation Comments PHOSPHOROUS (test code = PHOS) 3.8 MG/DL 2.5-4.9 N [id number] 04:53:00 Test Item Value Reference Range Interpretation Comments MAGNESIUM (test code = MAG) 2.1 MG/DL 1.8-2.4 N NT PRO-BRAIN NATRIURETIC [id number] 04:53:00 Test Item Value Reference Range Interpretation Comments NT PRO-BRAIN NATRIURETIC PEPTI 753 PG/ML 0-100 H (test code = PROBNP) BASIC METABOLIC [id number] 04:47:00 Test Item Value Reference Range Interpretation [...] code = CA) 8.7 MG/DL 8.5-10.1 N [id number] 04:47:00 Test Item Value Reference Range Interpretation Comments PHOSPHOROUS (test code = PHOS) MG/DL 2.5-4.9 [id number] 04:47:00 Test Item Value Reference Range Interpretation Comments MAGNESIUM (test code = MAG) 2.1 MG/DL 1.8-2.4 N NT PRO-BRAIN NATRIURETIC [id number] 04:47:00 Test Item Value Reference Range Interpretation Comments NT PRO-BRAIN NATRIURETIC PEPTI (test PG/ML 0-100 code = PROBNP) CBC W/AUTO [id number] 04:34:00 Test Item Value Reference Range Interpretation [...] NO DIFF/SCN CRITERIA = MDIFF) GLUCOSE BEDSIDE [id number] 22:32:00 Test Item Value Reference Range Interpretation Comments GLUCOSE BEDSIDE TESTING (test code = 88 mg/dL 70-110 N GLUBED) GLUCOSE BEDSIDE [id number] 17:59:00 Test Item Value Reference Range Interpretation Comments GLUCOSE BEDSIDE TESTING (test code = 97 mg/dL 70-110 N GLUBED) - XR CHEST 1 [id number] 17:25:00 [facility] [facility] : 1965 Sex: M Name: WILMER PARADA [facility] : 1965 Age/S: 55 / M [address] [address] Unit #: [id number] Loc: [place] [address] Phys: Rolando Napier Acct: [id number] Dis Date: Status: ADM IN PHONE #: [phone] Exam Date: 01/03/2021 1518 FAX #: Reason: Dyspnea EXAMS: CPT: [id number] XR CHEST1 V 34095 Fluoro Time: DAP (Gy m2): Air Kerma (mGy): EXAM: CHEST ONE VIEW INDICATION: Dyspnea LOCATION: B2 COMPARISON: November 29, 2020 TECHNIQUE: AP view of the chest FINDINGS: The heart size is enlarged. There is a cardiac pacing device in the left chest with no apparent discontinuity of the leads. There are diffuse congestive changes bilaterally. No pneumothorax or pleural effusion is identified. The osseous structures are normal. IMPRESSION: Cardiomegaly with diffuse congestive changes bilaterally. at 1725 Reported and signed by: Cindy Zabala M.D. CC: Yared Scott MD; Rolando Napier PAGE 1 Signed Report Name: [facility] [place] : 1965 Age/S: 55 / M [address] [address] Unit #: [id number] Loc: [place] [address] Phys: KarthikeyanRosinaimmanuel GONZALEZ Acct: [id number] Dis Date: Status: ADM IN PHONE#: [phone] Exam Date: 01/03/2021 4952 FAX #: Reason: Dyspnea EXAMS: CPT: [id number] XR CHEST 1 [id number] Fluoro Time: DAP (Gy m2): Air Kerma (mGy): (Continued) Technologist: Polly Mcnamara, RT(R)(CT); Nikole Rider, RT(R) Trnscb Date/Time: 01/03/2021 (1724) [email or web address] Orig Print D/T: S: 01/03/2021 (9550) PAGE 2 Signed ReportBASIC METABOLIC PANEL 2021-01-03 [...] 8.9 MG/DL 8.5-10.1 N Completed by Nursing: [id number] 14:57:00 Test Item Value Reference Range Interpretation [...] method. Completed by Nursing: NOCOVID 19 INHOUSE [id number] 14:55:00 Test Item Value Reference Range Interpretation Comments COVID 19 INHOUSE AG NEGATIVE Negative Per manu facturer, (test code = negative result s should [id number]) be treated aspr esumptive and, if inconsi stent with clinical signs andsymptoms or necessary for patient man agement, should betested with an alternative mol ecular assay. Negative resultsdo not preclude SA RS-CoV-2 infection and s hould not be usedas the s ole basis for patient man agement decisions. Nega tive results should be considered in t he context of apatient's r ecent exposures, hist ory, presence of cli nicalsigns and symptoms co nsistent with COVID-19. Spec Comments: NPROTHROMBIN [id number] 14:54:00 Test Item Value Reference Range Interpretation Comments PT PATIENT (test code = PTP) 11.0 SECONDS 9.3-12.9 N INTERNATIONAL NORMAL RATIO 0.98 INR Unit 0.8-1.2 N (test code = INR) THROMBOPLASTIN TIME [id number] 14:54:00 Test Item Value Reference Range Interpretation Comments THROMBOPLASTIN TIME PARTIAL 30.0 SECONDS 26-35 N (test code = PTT) - CT ANGIO [id number] 14:53:00 [facility] : 1965 Sex: M Name: WILMER PARADA : 1965 Age/S: 55 / M [address] [address] Unit #: [id number] Loc: [place] [address] Phys: Musa Alfaro DO Acct: [id number] Dis Date: Status: REG ER PHONE #:[phone] Exam Date: 01/03/2021 1425 FAX #: Reason: left sided weakness EXAMS: CPT: [id number] CT ANGIO HEAD 72620 B2 - CT ANGIO NECK, - CT ANGIO HEAD HISTORY: left sided weakness TECHNIQUE: Axial CTimages were obtained from the aortic arch to the skull vertex after intravenous contrast utilizing CTA protocol. Maximum intensity projection images were created from the data set. One or more of the following dose reduction techniques were used: Automated exposure control, adjustment of the mA and/orkV according to patient size, and/or iterative reconstruction. [...] PARADA : 1965 Age/S: 55 / M [address] [address] Unit #: [id number] Loc: [place] [address] Phys: Musa Alfaro DO Acct: [id number] Dis Date: Status: REG ER PHONE #: [phone] Exam Date: FAX #: Reason: left sided weakness EXAMS: CPT: [id number] CT ANGIO HEAD [address] (Continued) Both posterior cerebral arteries are normal. The vertebral arteries are patent and codominant. The basilarartery and origins of the bilateral posterior inferior cerebellar arteries, anterior inferior cerebel lar arteries, and superior cerebellar arteries are normal. No saccular aneurysm, proximal arterial cut off, intra-arterial clot, or hemodynamically significant intracranial arterial stenosis is present. Maximum intensity projection images confirm these findings. IMPRESSION: Normal head and neck CTA. at 1453 Reported and signed by: Dagoberto Mayer M.D. CC: Musa Alfaro DO Technologist:Nikole Rider, RT(R) CTDI: DLP: Trnscb Date/Time: 01/03/2021 (1452) [email or web address] Orig Print D/T: S: 01/03/2021 (9743) PAGE 2 Signed Report- CT ANGIO [id number] 14:53:00 [facility] : 1965 Sex: M Name: WILMER PARADA [facility] : 1965 Age/S: 55 / M [address] [address] Unit #: [id number]: [place] [address] Phys: Musa Alfaro DO Acct: [id number] Dis Date: Status: REG ER PHONE #: [phone] Exam Date: 01/03/2021 1429 FAX #: Reason: left sided weakness EXAMS: CPT: [id number] CT A NGIO NECK 82333 B2 - CT ANGIO NECK, - CT ANGIO HEAD HISTORY: left sided weakness TECHNIQUE: Axial CTimages were obtained from the aortic arch to the skull vertex after intravenous contrast utilizing CTA protocol. Maximum intensity projection images were created from the data set. One or more of the following dose reduction techniques were used: Automated exposure control, adjustment of the mA and/orkV according to patient size, and/or iterative reconstruction. COMPARISON: None FINDINGS: CTA NECK: The imaged aortic arch is normal. The origins of the brachiocephalic, bilateral common carotid, bilateral subclavian, and bilateral vertebral arteries demonstrate no significant stenosis. The bilateralinternal and external carotid arteries are patent. There [...] 1 Signed Report (CONTINUED) Name: WILMER PARADA [facility] [place] : 1965 Age/S: 55 / M [address] [address] Unit #: [id number] Loc: [place] [address] Phys: Musa Alfaro DO Acct: [id number] Dis Date: Status: REG ER PHONE #: [phone] Exam Date: 01/03/2021 1420 FAX #: Reason: left sided weakness EXAMS: CPT: [id number] CT ANGIO NECK 04004 (Continued) Bothposterior cerebral arteries are normal. The vertebral arteries are patent and codominant. The basilar artery and origins of the bilateral posterior inferior cerebellar arteries, anterior inferior cerebe llar arteries, and superior cerebellar arteries are normal. No saccular aneurysm, proximal arterial cut off, intra-arterial clot, or hemodynamically significant intracranial arterial stenosis is present. Maximum intensity projection images confirm these findings. IMPRESSION: Normal head and neck CTA. at 1453 Reported and signed by: Dagoberto Mayer M.D. CC: Musa Alfaro DO Technologist:Nikole Tereso, RT(R) CTDI: DLP: Trnscb Date/Time: 01/03/2021 (6110) [email or web address] Orig Print D/T: S: 01/03/2021 (4403) PAGE 2 Signed ReportCBC W/O [id number] 14:32:00 Test Item Value Reference Range Interpretation [...] 7.0-9.6 H MPV) - CT HEAD/BRAIN W/O [id number] 14:20:00 [facility] : 1965 Sex: M Name: WILMER PARADA [facility] : 1965 Age/S: 55 / M [address] [address] Unit #: [id number] Loc: [place] [id number] Phys: Musa Alfaro DO Acct: [id number] Dis Date: Status: PRE ER PHONE #:[phone] Exam Date: 01/03/2021 1404 FAX #: Reason: Code Stroke EXAMS: CPT: [id number] CT HEAD/BRAIN W/O CONT 28119 EXAMINATION: Head CT without contrast INDICATION: Code stroke COMPARISON: 11/29/2020 LOCATION: S17 TECHNIQUE: Axial noncontrast head CT was performed. Sagittal and coronal reformatted images were created. CT radiation dose optimization is achieved for this examination by the use of a CT protocol in accordance with ACR practice guidelines and adherence to adjuster recommendations.DLP: 836 mGy-cm. FINDINGS: Mild-moderate supratentorial white matter hypodensities which may represent chronic microvascular ischemic changes although nonspecific. No mass effect, intracranial hemorrhage, or extra-axial fluid collection. No CT evidence of acute cortical infarct. Prosthetic left globe. Unremarkable right orbit. Imaged paranasal sinuses and mastoid air cells are clear. No acute osseous abnormality is identified. IMPRESSION: No acute intracranial abnormality identified. Discussed with Dr. Alfaro at 1419 on 01/03/2021. at 1420 Reported and signed by: Vernon Garibay M.D. CC: Musa Alfaro DO Technologist:Juan Hernandez, RT(R)(CT); La CTDI: DLP: Trnscb Date/Time: 01/03/2021 (142) [email or web address] Orig Print D/T: S: 01/03/2021 (7094) PAGE 1 Signed ReportGLUCOSE BEDSIDE [id number] 11:35:00 Test Item Value Reference Range Interpretation Comments GLUCOSE BEDSIDE TESTING (test code 115 MG/DL 70-119 N = GLUBED) CBC W/AUTO [id number] 09:54:00 Test Item Value Reference Range Interpretation [...] 0.00 K/mm3 0.00-0.05 N NRBC#) RECOLLECTGLUCOSE BEDSIDE [id number] 07:34:00 Test Item Value Reference Range Interpretation Comments GLUCOSE BEDSIDE TESTING (test code 116 MG/DL 70-119 N = GLUBED) BASIC METABOLIC [id number] 06:24:00 Test Item Value Reference Range Interpretation [...] (test code = MG Index/DL The system [employer]) generated this result transmit breanne reference range [...] to interpret this result as normal/abnormal . [id number] 06:24:00 Test Item Value Reference Range Interpretation Comments MAGNESIUM (test code = MAG) 2.3 MG/DL 1.6-2.6 N GLUCOSE BEDSIDE [id number] 20:37:00 Test Item Value Reference Range Interpretation Comments GLUCOSE BEDSIDE TESTING (test code 118 MG/DL 70-119 N = GLUBED) GLUCOSE BEDSIDE [id number] 16:47:00 Test Item Value Reference Range Interpretation Comments GLUCOSE BEDSIDE TESTING (test code 100 MG/DL 70-119 N = GLUBED) GLUCOSE BEDSIDE [id number] 07:44:00 Test Item Value Reference Range Interpretation Comments GLUCOSE BEDSIDE TESTING (test code 121 MG/DL 70-119 H = GLUBED) GLUCOSE BEDSIDE [id number] 19:59:00 Test Item Value Reference Range Interpretation Comments GLUCOSE BEDSIDE TESTING (test code 135 MG/DL 70-119 H = GLUBED) GLUCOSE BEDSIDE [id number] 15:51:00 Test Item Value Reference Range Interpretation Comments GLUCOSE BEDSIDE TESTING (test code = 85 MG/DL 70-119 N GLUBED) - NM MYOCRD SPECT R/S [id number] 13:57:00 [facility] : 1965 Sex: M------- Patient Name: WILMER PARADA Unit No: [id number] EXAMS: CPT CODE: [id number] NM MYOCRD SPECT R/S MULT 99067 Patient was broughtto the stress test room. Baseline EKG was obtained and EKG and hemodynamics were monitored throughout the procedure. Patient was injected 17.9 mCi of technetium sestamibi at rest and resting images were obtained. Lexiscan was then given per protocol technetium 33.8 mCi was injected at the stress test phase. Perfusion images analysis revealed a medium, moderate, reversible inferior defect, in additionthere is a large fixed lateral defect. Wall motion analysis revealed severe global hypokinesis. EF was calculated at 19%. IMPRESSION: Medium, moderate inferior ischemia. Large lateral scar. Severe global hypokinesis. EF calculated at 19%. at 1357 Reported and signed by: Janiya Huber MD Nuclear Medicine Cardiology exams performed on dual head cameras with appropriate software for processing and reporting. CC: Alexa DELA CRUZ,KIKO,SIVAN Montelongo; Chuckie Olmos DO [facility] Pedro Pablo NAME: WILMER PARADA [facility] PHYS: Alexa Farrell APRN[address] : 1965 AGE: 54 SEX: Ken[place], [place] [address] LOC: [facility] W PHONE #: [phone] EXAM DATE: 12/01/2020 STATUS: ADM IN FAX #: [phone] RAD NO: DC Dt: PAGE 1 Signed Report Patient Name: WILMER PARADA Unit No: [id number] EXAMS: CPT CODE: [id number] NM MYOCRD SPECT R/S MULT 68868 <Continued> Technologist: Macy Sepulveda Transcribed Date/Time: 12/03/2020 (3497) - VikramAA6 Orig Print D/T: S: 12/03/2020 (1400) EMILY Chamorro NAME: TALWILMER [facility] PHYS: Alexa Farrell [address] 1965 AGE: 54 SEX: M [place], [place] [address] LOC: Gurpreet W PHONE #: [phone] EXAM DATE: 12/01/2020 STATUS: ADM IN FAX #: [phone] RAD NO: DC Dt: PAGE 2 Signed ReportGLUCOSE BEDSIDE [id number] 11:46:00 Test Item Value Reference Range Interpretation Comments GLUCOSE BEDSIDE TESTING (test code 114 MG/DL 70-119 N = GLUBED) [id number] 07:43:00 Test Item Value Reference Range Interpretation Comments CKMB (test code = 1.1 NG/ML 1.0-3.6 N MONOCLONAL CKMB CKMBT) METHODOLOGY. [id number] 07:43:00 Test Item Value Reference Range Interpretation [...] changes in trop onin levelscharacter istic of IN. GLUCOSE BEDSIDE [id number] 07:35:00 Test Item Value Reference Range Interpretation Comments GLUCOSE BEDSIDE TESTING (test code 104 MG/DL 70-119 N = GLUBED) [id number] 07:24:00 Test Item Value Reference Range Interpretation Comments CKMB (test code = CKMBT) NG/ML 1.0-3.6 [id number] 07:24:00 Test Item Value Reference Range Interpretation [...] changes in trop onin levelscharacter istic of IN. BASIC METABOLIC [id number] 06:50:00 Test Item Value Reference Range Interpretation [...] message] (test code = Index/DL The system [employer] HEMINDEX) generated this result transmit breanne reference [...] to interpret this result as normal/abnormal . [id number] 06:50:00 Test Item Value Reference Range Interpretation Comments MAGNESIUM (test code = MAG) 2.2 MG/DL 1.6-2.6 N BASIC METABOLIC [id number] 06:24:00 Test Item Value Reference Range Interpretation [...] message] (test code = Index/DL The system [employer]) generated this result transmit breanne reference range [...] to interpret this result as normal/abnormal . [id number] 06:24:00 Test Item Value Reference Range Interpretation Comments MAGNESIUM (test code = MAG) MG/DL 1.6-2.6 GLUCOSE BEDSIDE [id number] 19:35:00 Test Item Value Reference Range Interpretation Comments GLUCOSE BEDSIDE TESTING (test code 130 MG/DL 70-119 H = GLUBED) GLUCOSE BEDSIDE [id number] 16:35:00 Test Item Value Reference Range Interpretation Comments GLUCOSE BEDSIDE TESTING 103 MG/DL 70-119 N Noti fied Nurse~ (test code = GLUBED) GLUCOSE BEDSIDE [id number] 12:00:00 Test Item Value Reference Range Interpretation Comments GLUCOSE BEDSIDE TESTING 128 MG/DL 70-119 H Noti fied Nurse~ (test code = GLUBED) GLUCOSE BEDSIDE [id number] 08:28:00 Test Item Value Reference Range Interpretation Comments GLUCOSE BEDSIDE TESTING 123 MG/DL 70-119 H Noti fied Nurse~ (test code = GLUBED) GLUCOSE BEDSIDE [id number] 19:40:00 Test Item Value Reference Range Interpretation Comments GLUCOSE BEDSIDE TESTING (test code = 84 MG/DL 70-119 N GLUBED) GLUCOSE BEDSIDE [id number] 16:53:00 Test Item Value Reference Range Interpretation Comments GLUCOSE BEDSIDE TESTING 100 MG/DL 70-119 N Noti fied Nurse~ (test code = GLUBED) GLUCOSE BEDSIDE [id number] 13:00:00 Test Item Value Reference Range Interpretation Comments GLUCOSE BEDSIDE TESTING (test code 128 MG/DL 70-119 H = GLUBED) GLUCOSE BEDSIDE [id number] 08:35:00 Test Item Value Reference Range Interpretation Comments GLUCOSE BEDSIDE TESTING (test code = 95 MG/DL 70-119 N GLUBED) GLUCOSE BEDSIDE [id number] 19:49:00 Test Item Value Reference Range Interpretation Comments GLUCOSE BEDSIDE TESTING (test code 117 MG/DL 70-119 N = GLUBED) GLUCOSE BEDSIDE [id number] 16:52:00 Test Item Value Reference Range Interpretation Comments GLUCOSE BEDSIDE TESTING (test code 103 MG/DL 70-119 N = GLUBED) GLUCOSE BEDSIDE [id number] 12:30:00 Test Item Value Reference Range Interpretation Comments GLUCOSE BEDSIDE TESTING (test code 121 MG/DL 70-119 H = GLUBED) GLUCOSE BEDSIDE [id number] 07:43:00 Test Item Value Reference Range Interpretation Comments GLUCOSE BEDSIDE TESTING (test code = 96 MG/DL 70-119 N GLUBED) COMPREHENSIVE METABOLIC [id number] 05:53:00 Test Item Value Reference Range Interpretation [...] (test code = MG Index/DL The system [employer] HEMINDEX) generated this result transmit breanne reference [...] REFER ENCE RANGE: (test code = CHOLHDL) MALE F EMALE 1/2 AVG RISK 3.43 3.27 AVG RISK 4.97 4.44 2X AVG RISK 9.55 7 .05 3X AVG RISK 23. 39 11.04 [Automate d message] The sy stem which generated this [...] = NHDL) CHD risk LDL: <70 mg/dL nonHDL: < 100 mg/dLPatients w ith 2+ risk factors LDL: <130 mg/dL nonH DL: <160 mg/dLPatie nts with 0-1 risk factors LDL: <1 60 mg/dL nonHDL: < 190 mg/dL LIPOPROTEIN LDL (test 112 MG/DL 0-129 N code = LDL) LDL/HDL (test code = 2.80 Ratio See_Comment N LDL/HDL RISK LDL/HDL) ASSESSMENT1.47 One-half averag e3.22 Average5.03 Two times average6. 14 Three times ave rage [Automated mess age] The system whic h generated this result transmit breanne reference range : 1.48-3.22 Avg. The reference range was not used to interpret this result as normal/abnormal . [id number] 05:53:00 Test Item Value Reference Range Interpretation Comments MAGNESIUM (test code = MAG) 2.2 MG/DL 1.6-2.6 N COMPREHENSIVE METABOLIC [id number] 05:38:00 Test Item Value Reference Range Interpretation [...] [Aut omated code = LIPINDEX) Index/DL message] e system which generated this [...] See_Comment [Autom ated message] LDL/HDL) The system [employer] h generated this result transmitted ref erence range: 1.48-3.2 2 Avg. The reference r marino was not used to interpret this result as normal/abnor mal. [id number] 05:38:00 Test Item Value Reference Range Interpretation Comments MAGNESIUM (test code = MAG) MG/DL 1.6-2.6 GLYCOSYLATED HEMOGLOBIN (HA1C)2020-11-30 05:21:00 Test Item Value Reference Range Interpretation Comments GLYCOSYLATED HEMOGLOBIN (HA1C) 5.9 % IS-A1C 4.5-5.6 H (test code = GLYHGB) Specimen comments: use blood sample in the labComments to Glost Tile Sorter: use blood sample in the labCBC W/AUTO [id number] 05:12:00 Test Item Value Reference Range Interpretation [...] code = 0.00 K/mm3 0.00-0.05 N NRBC#) [id number] 00:17:00 Test Item Value Reference Range Interpretation Comments CKMB (test code = 1.4 NG/ML 1.0-3.6 N MONOCLONAL CKMB CKMBT) METHODOLOGY. [id number] 00:17:00 Test Item Value Reference Range Interpretation [...] changes in trop onin levelscharacter istic of [place]. [id number] 23:57:00 Test Item Value Reference Range Interpretation Comments CKMB (test code = CKMBT) NG/ML 1.0-3.6 [id number] 23:57:00 Test Item Value Reference Range Interpretation [...] changes in trop onin levelscharacter istic of IN. GLUCOSE BEDSIDE [id number] 20:50:00 Test Item Value Reference Range Interpretation Comments GLUCOSE BEDSIDE TESTING (test code 126 MG/DL 70-119 H = GLUBED) [id number] 20:10:00 Test Item Value Reference Range Interpretation Comments CKMB (test code = 1.6 NG/ML 1.0-3.6 N MONOCLONAL CKMB CKMBT) METHODOLOGY. [id number] 20:10:00 Test Item Value Reference Range Interpretation [...] changes in trop onin levelscharacter istic of [place]. [id number] 19:57:00 Test Item Value Reference Range Interpretation Comments CKMB (test code = CKMBT) NG/ML 1.0-3.6 [id number] 19:57:00 Test Item Value Reference Range Interpretation [...] changes in trop onin levelscharacter istic of IN. COVID 19 Asymptomatic IH [id number] 18:32:00 Test Item Value Reference Range Interpretation Comments COVID 19 Asymptomatic IH AG (test Negative Neg code = COVNONPUIAG) - CT ANGIO [id number] 17:08:00 [facility] : 1965 Sex: M Patient Name: WILMER PARADA Unit No: [id number] EXAMS: CPT CODE: [id number] CT ANGIO HEAD [address] Dictation location: H37. CT ANGIOGRAM OF THE NECK AND HEAD WITH IV CONTRAST; MIP AND 3-D RECONSTRUCTIONS HISTORY: Left sided weakness COMPARISON: None TECHNIQUE: Axial CT images of the neck and head were obtained with coronal and/or sagittal reformatted views. MIP and/or 3-D reconstruction were obtained of the carotid arteries in the neck and tribal of [place]. Automated exposure control, iterative reconstruction [...] nodular thickening of the ethmoid sinuses. The mastoid air cells are clear. Mild to moderate cervicalspondylosis. CTA NECK: Not included. The exam is essentially nondiagnostic with very poor contrast opacification seen in the carotid vessels. No suspected significant carotid bulb stenosis. Extracranial vertebral arteries are not well assessed. CTA HEAD: The intracranial vessels are slightly better opacified visualized. The exam is still very limited. No definite intracranial obstruction or aneurysm.The dural sinuses are not well opacified. IMPRESSION: Very limited exam due to poor timing of the contrast bolus. The CT portion of the neck is essentially nondiagnostic. Probably no significant carotid stenosis. CTA head is limited. No definite occlusion or aneurysm. [facility] Pedro Pablo NAME: WILMER PARADA [address] [place] [address] PHYS: ARVIN. - NickolasChuckiemickey [place], [place] [address] : 1965 AGE: 54 SEX: M LOC: LISA PHONE #: [phone] EXAM DATE: 11/29/2020 STATUS: REG ER FAX #: [phone] RAD #: D/C DT PAGE 1 Signed Report (CONTINUED) Patient Name: WILMER PARADA Unit No: [id number] EXAMS: CPT CODE: [id number] CT ANGIO HEAD [address] <Continued> at 1708 Reported and signed by: Uriah Moran MD CC: Chuckie Olmos DO Dictated Date/Time: 11/29/2020 (170) Technologist: Luisana Mederos CTDI: 73.04 DLP: 4.21 Trnscrpt: 11/29/2020 (170) BryannaR.SP17 EVERNoreen Pedro Pablo NAME: TAL[address] PHYS: RADAMES MagañaliChuckie vazquez [place], [place] [address] : 1965 AGE: 54 SEX: M LOC: [employer] PHONE #: [phone] EXAM DATE: 11/29/2020 STATUS: REG ER FAX #: [phone] RAD #: D/C DT PAGE 2 Signed Report Patient Name: WILMER PARADA Unit No: [id number] EXAMS: CPT CODE: [id number] CT ANGIO HEAD [address] <Continued> Orig Print D/T: S:11/29/2020 (1711) EMILY Chamorro NAME: TAL[address] PHYS: RADAMES Beclher OlmosChuckie vazquez [place] [address] : 1965 AGE: 54 SEX: M LOC: B[facility]ERS PHONE #: [phone] EXAM DATE: 11/29/2020 STATUS: REG ER FAX #: [phone] RAD #: D/C DT PAGE 3 Signed Report- CT ANGIO [id number] 17:08:00 [facility] : 1965 Sex: M Patient Name: WILMER PARADA Unit No: [id number] EXAMS: CPT CODE: [id number] CT ANGIO NECK [address] Dictation location: H37. CT ANGIOGRAM OF THE NECK AND HEAD WITH IV CONTRAST; MIP AND 3-D RECONSTRUCTIONS HISTORY: Left sided weakness COMPARISON: None TECHNIQUE: Axial CT images of the neck and head were obtained with coronal and/or sagittal reformatted views. MIP and/or 3-D reconstruction were obtained of the carotid arteries in the neck and tribal of [place]. Automated exposure control, iterative reconstruction technique, and/or adjustment of mA and/or kV according to patient's size was utilized for radiation dose reduction. IV CONTRAST: 100 ml Isovue-370. FINDINGS: Visualized lung apices are clear. The t hyroid is mildly prominent. The airway is patent. [...] nodular thickening of the ethmoid sinuses. The mastoid air cells are clear. Mild to moderate cervicalspondylosis. CTA NECK: Not included. The exam is [...] is limited. No definite occlusion or aneurysm. [facility] Pedro Pablo NAME: WILMER PARADA [address] [place] [address] Bl PHYS: ARVIN.02 - Chuckie Olmos, [place] [address] : 1965 AG E: 54 SEX: M LOC: [facility]ERS PHONE #: [phone] EXAM DATE: 11/29/2020 STATUS: REG ER FAX #: [phone] RAD #: D/C DT PAGE 1 Signed Report (CONTINUED) Patient Name: WILMER PARADA Unit No: [id number] EXAMS: CPT CODE: [id number] CT ANGIO NECK [address] <Continued> at 1708 Reported and signed by: Uriah Moran MD CC: Chuckie Olmos DO Dictated Date/Time: 11/29/2020 (170) Technologist: Luisana Mederos CTDI: 0 DLP: 0 Trnscrpt: 11/29/2020 (170) BryannaR.[email or web address] EMILY Chamorro NAME: [address] PHYS: ARVIN.Dinesh Chuckie Olmos [place] [id number] : 1965 AGE:54 SEX: M LOC: [facility] PHONE #: [phone] EXAM DATE: 11/29/2020 STATUS: REG ER FAX #: [phone] RAD #: D/C DT PAGE 2 Signed Report Patient Name: WILMER PARADA Unit No: [id number] EXAMS: CPT CODE: [id number] CT ANGIO NECK [address]646 <Continued> Orig Print D/T: S: 11/29/2020 (1711) EMILY Pedro Pablo NAME: [address] PHYS: ARVIN. Alexi Olmos[place]ela V[place] [id number] : 1965 AGE: 54 SEX: M LOC: [facility] PHONE #: [phone] EXAM DATE: 11/29/2020 STATUS: REG ER FAX #: [phone] RAD #: D/C DT PAGE 3 Signed Report- XR CHEST 1 [id number] 11:48:00 [facility] 1965 Sex: M Name: WILMER PARADA [place] : 1965 Age/S: 54 / M [id number] [address] [place] Unit #: [id number] Loc: [place] [address] Phys: Maximino Ham MD Acct: [id number] Dis Date: Status: REG ER PHONE #: [phone] Exam Date: 11/29/2020 1100 FAX #: Reason: chest pain, stroke symptoms EXAMS: CPT: [id number] XR CHEST 1 V 51808 Fluoro Time: DAP (Gy m2): Air Kerma [...] PAGE 1 Signed Report Name: WILMER PARADA Sherrard : 1965 Age/S: 54 / M [id number] [address] [place] Unit #: [id number] Loc: [place] [address] Phys: Maximino Ham [facility] [id number] Dis Date: Status: REG ER PHONE #: [phone] Exam Date: 11/29/2020 1108 FAX #: Reason: chest pain, stroke symptoms EXAMS: CPT: [id number] XR CHEST 1 V 89022 Fluoro Time: DAP (Gy m2): Air Kerma (mGy): (Continued) Technologist: Bandar Tirado, RT(R)(CT) Trnscb Date/Time: 11/29/2020 (1148) [email or web address] Orig Print D/T: S: 11/29/2020 (0025) PAGE 2 Signed Report- CT ABD PELVIS [id number] 11:20:00[facility] : 1965 Sex: M Name: WILMER PARADA [facility] : 1965 Age/S: 54 / M [id number] [address] [place] Unit #: [id number]: [place] [id number] Phys: Maximino Ham MD Acct: [id number] Dis Date: Status: REG ER PHONE #: [phone] Exam Date: 11/29/2020 1046 FAX #: Reason: rule out dissection EXAMS: CPT: [id number] CTABD PELVIS W/CONT 80363 LOCATION: T18 EXAM: CT CHEST WITH CONTRAST [...] exposure control was utilized. FINDINGS: Left AICD in place. The heart is mildly enlarged. No pericardial effusion is seen. No aorticdissection or aneurysm is identified. No mediastinal or hilar adenopathy is seen. The trachea and main bronchi are patent. Tiny areas of peripheral subsegmental atelectasis in the left upper lobe noted. Lungs are otherwise clear. Liver and spleen are normal in appearance. Adrenal glands and pancreas normal. Gallbladder is unremarkable. No bladder distention. Portal vasculature is patent. Kidneys enha nce symmetrically. No focal abnormality or hydronephrosis is [...] 1 Signed Report (CONTINUED) Name: WILMER PARADA [facility] : 1965 Age/S: 54 / M [id number] [address] [place] Unit #: [id number] Loc: [place] [address] Phys: Maximino Ham MD Acct: [id number] Dis Date: Status: REG ER PHONE #: Exam Date: 11/29/2020 1042 FAX #: Reason: rule out dissection EXAMS: CPT: [id number] CT ABD PELVIS W/CONT 80522 (Continued) at 1120 Reported and signed by: Bill Lake M.D. CC: Maximino Ham MD Technologist:Gala Menard, RT(R); Nikole CTDI: DLP: Trnscb Date/Time: 11/29/2020 (1120) [email or web address] Orig Print D/T: S: 11/29/2020 (1123) PAGE 2 Signed Report- CT CHEST [id number] 11:20:00 [facility] : 1965 Sex: M Name: WILMER PARADA [facility] : 1965 Age/S: 54 / M [id number] [address] [place] Unit #: [id number]: [place] [id number] Phys: Maximino Ham MD Acct: [id number] Dis Date: Status: REG ER PHONE #: [phone] Exam Date: 11/29/2020 1056 FAX #: Reason: rule out dissection EXAMS: CPT: [id number] CT CHEST W/CONTRAST 75446 LOCATION: T18 EXAM: CT CHEST WITH CONTRAST [...] exposure control was utilized. FINDINGS: Left AICD in place. The heart is mildly enlarged. No pericardial effusion is seen. No aortic dissection or aneurysm is identified. No mediastinal or hilar adenopathy is seen. The trachea and main bronchi are patent. Tiny areas of peripheral subsegmental atelectasis in the left upper lobe noted.Lungs are otherwise clear. Liver and spleen are normal in appearance. Adrenal glands and pancreas normal. Gallbladder [...] 1 Signed Report (CONTINUED) Name: WILMER PARADA [facility] : 1965 Age/S: 54 / M [address] [address] [place] Unit #: [id number] Loc: [place] [address] Phys: Maximino Ham MD Acct: [id number] Dis Date: Status: REG ER PHONE #: Exam Date: 11/29/2020 1056 FAX #: Reason: rule out dissection EXAMS: CPT: [id number] CT CHEST W/CONTRAST 22986 (Continued) at 1120 Reported and signed by: Bill Lake M.D. CC: Maximino Ham MD Technologist:Gala Menard, RT(R); Nikole CTDI: DLP: Trnscb Date/Time: 11/29/2020 (1120) [email or web address] Orig Print D/T: S: 11/29/2020 (1123) PAGE 2 Signed Report- CT HEAD/BRAIN W/O [id number] 11:15:00[facility] : 1965 Sex: M Name: WILMER PARADA [facility] : 1965 Age/S: 54 / M [id number] [address] [place] Unit #: [id number]: [place] [address] Phys: Maximino Ham MD Acct: [id number] Dis Date: Status: REG ER PHONE #: [phone] Exam Date: 11/29/2020 1045 FAX #: Reason: CVA symptoms EXAMS: CPT: [id number] CT HEAD/BRAIN W/O CONT 13905 EXAM: - CT HEAD/BRAIN W/O CONT INDICATION: CVA symptoms LOCATION: T18 COMPARISON: None available time of interpretation. TECHNIQUE: Axial tomograms through the brain were obtained without intravenous contrast. Coronal and sagittal reformatted images are provided. All CT scans areperformed using radiation dose reduction technique. Technical factors [...] 11/29/2020 (1118) PAGE 1 Signed ReportCOMPREHENSIVE METABOLIC [id number] 10:03:00 Test Item Value Reference Range Interpretation [...] N code = ALKP) Completed by Nursing: [id number] 10:03:00 Test Item Value Reference Range Interpretation [...] yby method. Completed by Nursing: NOCBC W/AUTO [id number] 09:45:00 Test Item Value Reference Range Interpretation [...] REQUIRED (test code NO DIFF/SCN CRITERIA = MDIFF)"
[2022-07-13 03:14] LABS: Potassium 4.7 mmol/L (3.5-5.1)
[2022-07-13 03:15] LABS: Troponin High Sensitivity 106.9 pg/mL (<58.9)
--- NOTE | 2022-07-13 03:25 | ER ---
Nurse's Notes [facility] Name: Bryan Watts Age: 56 yrs Sex: Male : 1965 Arrival Date: 07/13/2022 Time: 02:34 Bed 6 Private MD: Diagnosis: Subsequent non-ST elevation (NSTEMI) myocardial infarction Presentation: 07/13 02:34 Chief complaint: EMS states: toned out for sternal non radiating chest pain that as6 started at approx 1 AM. Coronavirus screen: At this time, the client does not indicate any symptoms associated with coronavirus-19. Ebola Screen: No symptoms or risks identified at this time. Risk Assessment: Do you want to hurt yourself or someone else? Patient reports no desire to harm self or others. Onset of symptoms was July 13, 2022 at 01:00. Care prior to arrival: Medication(s) given: ASA, 81 mg, x 4, Nitroglycerin, 0.4 mg SL x 1, IV initiated. 20 GA, in the right antecubital area. 02:34 Method Of Arrival: EMS: [facility] as6 02:34 Acuity: GABBY 3 as6 02:38 Initial Sepsis Screen: Does the patient meet any 2 criteria? No. Patient's initial as6 sepsis screen is negative. Does the patient have a suspected source of infection? No. Patient's initial sepsis screen is negative. Triage Assessment: 02:47 General: Appears in no apparent distress. Behavior is calm, cooperative. Pain: as6 Complains of pain in chest Pain does not radiate. 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 - Social history:: Smoking status: Patient denies any tobacco usage or history of. Screenin:43 Abuse screen: Denies threats or abuse. Denies injuries from another. Nutritional as6 screening: No deficits noted. Tuberculosis screening: No symptoms or risk factors identified. Fall Risk None identified. Assessment: 03:19 General: Appears in no apparent distress. Behavior is calm, cooperative. Pain: kd3 Complains of pain in chest. Neuro: Level of Consciousness is awake, alert, obeys commands, Oriented to person, place, time, situation. Cardiovascular: Patient's skin is warm and dry. Rhythm is ventricular pacer. Respiratory: Airway is patent Trachea midline Respiratory effort is even, unlabored, Respiratory pattern is regular, symmetrical. Vital Signs: 02:36 Temp 98.5(O); Weight 145.15 kg; Height 6 ft. 2 in. (187.96 cm) (R); Pain 6/10; as6 02:39 BP 138 / 96; Pulse 94; Resp 18; Pulse Ox 100% ; kd3 03:19 BP 126 / 81; Pulse 84; Resp 18; Pulse Ox 94% on R/A; kd3 04:52 BP 133 / 88; Pulse 86; Resp 17; Pulse Ox 94% on R/A; kd3 02:36 Body Mass Index 41.09 (145.15 kg, 187.96 cm) as6 ED Course: 02:34 Patient arrived in ED. kl 02:34 Price Zarate, SAMUEL is Primary Nurse. as6 02:35 Ze Buckner MD is Attending Physician. kdr 02:35 Triage completed. as6 02:35 Maintain EMS IV. Dressing intact. Good blood return noted. Site clean \T\ dry. Gauge \T\ as 6 site: 20G RAC. 02:38 Arm band placed on. as6 02:43 Placed in gown. Bed in low position. Call light in reach. Side rails up X2. as6 02:47 Basic Metabolic Panel Sent. kd3 02:47 CBC with Diff Sent. kd3 02:47 NT PRO-BNP Sent. kd3 02:47 Troponin HS Sent. kd3 03:13 XRAY Chest (1 view) In Process Unspecified. EDMS 03:15 Notified ED physician of a critical lab result(s). Troponin 106.9. kl 03:24 Orlando Story MD is Hospitalizing Provider. kdr 04:51 No provider procedures requiring assistance completed. Patient admitted, IV remains in kd3 place. 07:26 Primary Nurse role handed off by Price Zarate, SAMUEL eb 11:40 Sha Araujo, SAMUEL is Primary Nurse. bp Administered Medications: 02:47 Drug: Tylenol 1000 mg Route: PO; kd3 04:53 Follow up: Response: No adverse reaction kd3 03:49 Drug: PlaVIX (clopidogrel) 300 mg Route: PO; kd3 04:53 Follow up: Response: No adverse reaction kd3 03:49 Drug: Lovenox (enoxaparin) 1 mg/kg Route: Sub-Q; Site: right lower abdomen; kd3 04:53 Follow up: Response: No adverse reaction kd3 Medication: 03:20 VIS not applicable for this client. kd3 Outcome: 03:24 Decision to Hospitalize by Provider. kdr 04:52 Admitted to ER Hold. Please see [facility] for further documentation. kd3 04:52 Condition: stable 04:52 Discharge instructions given to patient. 12:37 Patient left the ED. bp Signatures: Dispatcher [employer] EDRosa Beltrán RN RN kl Rittger, Kevin, MD MD kdr Peltier, Brian, RN RN bp Botello, Elizabeth eb Slawson, Ashby, RN RN as6 Nasreen Neely RN RN kd3
--- NOTE | 2022-07-13 03:25 | EDPHYS ---
Physician Documentation [facility] Name: Bryan Watts Age: 56 yrs Sex: Male : 1965 Arrival Date: 07/13/2022 Time: 02:34 Bed 6 Private MD: ED Physician Ze Buckner HPI: 07/13 02:39 This 56 yrs old Black Male presents to ER via EMS with complaints of Chest pain. kdr 02:39 Patient states that he was watching TV at about 1 AM when he started to have acute kdr onset of midsternal chest pain that was nonradiating. He was slightly short of breath but otherwise had no other associated symptoms. He has had similar episodes before. EMS was called by the longterm and they gave the patient aspirin and nitroglycerin in route to the hospital. On arrival he was feeling better though he could not specifically quantify the improvement. The patient is nontoxic and stable at this time and not requiring immediate acute intervention. Onset: The symptoms/episode began/occurred suddenly, at 01:00. Severity of symptoms: At their worst the symptoms were mild in the emergency department the symptoms have improved mildly. The patient has experienced similar episodes in the past, a few times. The patient has not recently seen a physician. 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 - Social history:: Smoking status: Patient denies any tobacco usage or history of. ROS: 02:39 Constitutional: Negative for fever, chills, and weight loss, Eyes: Negative for injury, kdr pain, redness, and discharge, ENT: Negative for injury, pain, and discharge, Neck: Negative for injury, pain, and swelling, Abdomen/GI: Negative for abdominal pain, nausea, vomiting, diarrhea, and constipation, Back: Negative for injury and pain, : Negative for injury, bleeding, discharge, and swelling, MS/Extremity: Negative for injury and deformity, Skin: Negative for injury, rash, and discoloration, Neuro: Negative for headache, weakness, numbness, tingling, and seizure activity. Psych: Negative for depression, anxiety, suicide ideation, homicidal ideation, and hallucinations, Allergy/Immunology: Negative for hives, rash, and allergies, Endocrine: Negative for neck swelling, polydipsia, polyuria, polyphagia, and marked weight changes, Hematologic/Lymphatic: Negative for swollen nodes, abnormal bleeding, and unusual bruising. 02:39 Cardiovascular: Positive for chest pain, Negative for edema, orthopnea, palpitations, paroxysmal nocturnal dyspnea, acute changes. 02:39 Respiratory: Positive for shortness of breath, Negative for hemoptysis, orthopnea, pleurisy, sputum production, wheezing. Exam: 02:39 Constitutional: This is a well developed, well nourished patient who is awake, alert, kdr and in no acute distress. Head/Face: Normocephalic, atraumatic. Eyes: Pupils equal round and reactive to light, extra-ocular motions intact. Lids and lashes normal. Conjunctiva and sclera are non-icteric and not injected. Cornea within normal limits. Periorbital areas with no swelling, redness, or edema. Neck: Trachea midline, no thyromegaly or masses palpated, and no cervical lymphadenopathy. Supple, full range of motion without nuchal rigidity, or vertebral point tenderness. No Meningismus. Chest/axilla: Normal chest wall appearance and motion. Nontender with no deformity. No lesions are appreciated. Cardiovascular: Regular rate and rhythm with a normal S1 and S2. No gallops, murmurs, or rubs. Normal PMI, no JVD. No pulse deficits. Respiratory: Lungs have equal breath sounds bilaterally, clear to auscultation and percussion. No rales, rhonchi or wheezes noted. No increased work of breathing, no retractions or nasal flaring. Abdomen/GI: Soft, non-tender, with normal bowel sounds. No distension or tympany. No guarding or rebound. No evidence of tenderness throughout. Back: No spinal tenderness. No costovertebral tenderness. Full range of motion. Skin: Warm, dry with normal turgor. Normal color with no rashes, no lesions, and no evidence of cellulitis. MS/ Extremity: Pulses equal, no cyanosis. Neurovascular intact. Full, normal range of motion. Neuro: Awake and alert, GCS 15, oriented to person, place, time, and situation. Cranial nerves II-XII grossly intact. Motor strength 5/5 in all extremities. Sensory grossly intact. Cerebellar exam normal. Normal gait. Psych: Awake, alert, with orientation to person, place and time. Behavior, mood, and affect are within normal limits. 02:43 ECG was reviewed by the Attending Physician. kdr Vital Signs: 02:36 Temp 98.5(O); Weight 145.15 kg; Height 6 ft. 2 in. (187.96 cm) (R); Pain 6/10; as6 02:39 BP 138 / 96; Pulse 94; Resp 18; Pulse Ox 100% ; kd3 03:19 BP 126 / 81; Pulse 84; Resp 18; Pulse Ox 94% on R/A; kd3 04:52 BP 133 / 88; Pulse 86; Resp 17; Pulse Ox 94% on R/A; kd3 02:36 Body Mass Index 41.09 (145.15 kg, 187.96 cm) as6 MDM: 02:39 Data reviewed: vital signs, nurses notes, lab test result(s), radiologic studies. kdr Counseling: I had a detailed discussion with the patient and/or guardian regarding: the historical points, exam findings, and any diagnostic results supporting the discharge/admit diagnosis, lab results, radiology results. 03:24 Patient medically screened. [facility] 07/13 02:36 Order name: Basic Metabolic Panel [facility] 07/13 02:36 Order name: CBC with Diff; Complete Time: 03:09 [facility] 07/13 02:36 Order name: NT PRO-BNP [facility] 07/13 02:36 Order name: Troponin HS [facility] 07/13 03:46 Order name: Lipid Profile [facility] 07/13 03:46 Order name: Lipid Profile [facility] 07/13 02:36 Order name: XRAY Chest (1 view) [facility] 07/13 06:56 Order name: SARS RAPID mw2 07/13 07:50 Order name: Glucose, Ancillary Testing [facility] 07/13 07:55 Order name: SARS-COV-2 Antigen Rapid [facility] 07/13 08:33 Order name: Troponin High Sensitivity [facility] 07/13 11:52 Order name: Glucose, Ancillary Testing [facility] 07/13 02:36 Order name: EKG; Complete Time: 02:37 [facility] 07/13 02:36 Order name: Cardiac monitoring; Complete Time: 02:43 [facility] 07/13 02:36 Order name: EKG - Nurse/Tech; Complete Time: 02:43 kdr 07/13 02:36 Order name: IV Saline Lock; Complete Time: 02:43 kdr 07/13 02:36 Order name: Labs collected and sent; Complete Time: 02:43 kdr 07/13 02:36 Order name: O2 Per Protocol; Complete Time: 02:43 kdr 07/13 02:36 Order name: O2 Sat Monitoring; Complete Time: 02:44 kdr 07/13 03:46 Order name: CONS Physician Consult EDMS 07/13 03:46 Order name: Heart Healthy EDMS EC:43 Rate is 97 beats/min. Rhythm is regular, Paced with No ectopy. Clinical impression: kdr Paced rhythm. Administered Medications: 02:47 Drug: Tylenol 1000 mg Route: PO; kd3 04:53 Follow up: Response: No adverse reaction kd3 03:49 Drug: PlaVIX (clopidogrel) 300 mg Route: PO; kd3 04:53 Follow up: Response: No adverse reaction kd3 03:49 Drug: Lovenox (enoxaparin) 1 mg/kg Route: Sub-Q; Site: right lower abdomen; kd3 04:53 Follow up: Response: No adverse reaction kd3 Disposition Summary: 07/13/22 03:24 Hospitalization Ordered Hospitalization Status: Inpatient Admission kdr Provider: Orlando Story kdr Condition: Fair kdr Problem: new kdr Symptoms: have improved kdr Bed/Room Type: Standard kdr Location: Telemetry/MedSurg (Inpatient)(07/13/22 11:45) ja1 Room Assignment: [facility](07/13/22 11:45) ja Diagnosis - Subsequent non-ST elevation (NSTEMI) myocardial infarction kdr Forms: - Medication Reconciliation Form kdr - SBAR form kdr Signatures: Dispatcher [employer] EDOK Ze Buckner MD MD kdr Macy Vazquez RN RN cg Aguilar, Jose RN RN ja1 Price Zarate RN RN as6 Nasreen Neely RN RN kd3 Corrections: (The following items were deleted from the chart) 04:04 03:24 Telemetry/MedSurg (Inpatient) kdr cg 04:04 03:24 kdr cg 11:45 04:04 [facility] ER HOLD cg ja1 11:45 04:04 ERHOLD- cg ja1
[2022-07-13] MEDS ORDERED: CLOPIDOGREL 75 MG TABLET ONE (03:26)
[2022-07-13] MEDS ORDERED: ENOXAPARIN 100 MG/ML SYR SQ ONE ×2 (03:27→09:26)
[2022-07-13] MEDS ORDERED: ENOXAPARIN 40 MG/0.4 ML SQ ONE ×2 (03:27→03:43)
[2022-07-13] MEDS ORDERED: ONDANSETRON 4 MG/2 ML VIAL IV PRN (03:41)
--- NOTE | 2022-07-13 03:46 | P.HP ---
Certification for Inpatient Patient admitted to: Observation With expected LOS: <2 Midnights Practitioner: I am a practitioner with admitting privileges, knowledge of patient current condition, hospital course, and medical plan of care. Services: Services provided to patient in accordance with Admission requirements found in Title 42 Section 412.3 of the Code of Federal Regulations Patient History Date of Service: 07/13/22 Reason for admission: Chest pain, NSTEMI. History of Present Illness: 56-year-old male patient with medical history significant for hypertension, diabetes type 2, hyperlipidemia, coronary artery disease status post stents placement x8, CHF with rEF who was evaluated in the emergency room for episode of chest pain. He reported chest pain to be central rated 10 out of 10 in intensity. No issues with nausea with vomiting, dizzy spells, fever, chills, shortness of breath episode with chest pain. No feeling of impending sense of doom. Pain is nonradiating to any limb. Because of concerning symptoms he had labs done in the emergency room with slightly elevated troponin of 100. He was asked to be admitted for ACS rule out. Allergies isosorbide [From Imdur] Allergy (Verified 07/13/22 04:32) Itching Home Medications: Acetaminophen with Codeine [Tylenol with-Codeine #3 Tablet] 1 tab PO Q6HR PRN 07/13/22 Apixaban [Eliquis] 2.5 mg PO DAILY 07/13/22 Aspirin [Quoc Chewable] 81 mg PO DAILY 07/13/22 Atorvastatin Calcium [Lipitor] 80 mg PO BEDTIME 07/13/22 Carvedilol [Coreg] 25 mg PO BID 07/13/22 Cholecalciferol (Vitamin D3) [Vitamin D3] 25 mcg PO DAILY 07/13/22 Dapagliflozin Propanediol [Farxiga] 10 mg PO DAILY 07/13/22 Docusate Sodium 100 mg PO DAILY 07/13/22 Gabapentin [Neurontin] 100 mg PO TID 07/13/22 Glipizide [Glipizide ER] 5 mg PO DAILY 07/13/22 Lisinopril [Zestril] 2.5 mg PO DAILY 07/13/22 Magnesium Oxide 400 mg PO DAILY 07/13/22 Spironolactone 25 mg PO DAILY 07/13/22 Tizanidine HCl 2 mg PO Q8HR PRN 07/13/22 - Past Medical/Surgical History Diabetic: Yes -: Diabetes type 2 -: HTN -: CAD -: Chronic systilic congestive heart failure -: Chronic systolic congestive heart failure -: RIGHT KNEE SX -: ARTIFICIAL LEFT EYE- 1977 -: Cardiac catherization with stent -: pacemaker Psychosocial/ Personal History: patient lives at home with family - Family History Father -: Heart disease, Hypertension Mother -: Diabetes - Social History Alcohol use: No CD- Drugs: No Caffeine use: Yes Review of Systems General: Unremarkable Eyes: Unremarkable ENT: Unremarkable Respiratory: SOB with Excertion Cardiovascular: Chest Pain Gastrointestinal: Unremarkable Genitourinary: Unremarkable Musculoskeletal: Unremarkable Neurological: Unremarkable Physical Examination - Physical Exam General: Alert, Oriented x3 HEENT: Atraumatic, Normocephalic Respiratory: Normal air movement Cardiovascular: Regular rate/rhythm, Normal S1 S2 Gastrointestinal: Soft and benign Musculoskeletal: No swelling Neurological: Normal speech - Studies Laboratory Data (last 24 hrs) 07/13/22 02:39: WBC 5.90, Hgb 11.8 L, Hct 37.2 L, Plt Count 387 07/13/22 02:39: Sodium 136, Potassium 4.7, BUN 16, Creatinine 1.44 H, Glucose 118 H Assessment and Plan - Plan Chest pain: Presentation is concerning for ACS especially with prior history. Empiric therapy with Plavix and Lovenox has been started for NSTEMI. Will obtain lipid panel, trend cardiac markers and have cardiology evaluate. Will obtain echocardiogram to assess cardiac function Patient will be continued on telemetry. DM 2: We will monitor blood sugar before meals and at bedtime and continue sliding scale insulin for glucose control. Oral antihyperglycemic drugs will be continued as prescribed outpatient Hypertension: We will monitor vital signs per unit protocol and continue antihypertensive medications. CAD: Statin therapy and antiplatelet drugs to be continued. Prophylaxis: Therapeutic Lovenox to be continued for NSTEMI and ACS management. Code status: Full code. Disposition: We will work-up chest pain and discharge him when he deemed clinically stable. Discharge Plan: Senior Care - Advance Directives Does patient have a Living Will: No Does patient have a Durable POA for Healthcare: No
[2022-07-13] MEDS: INSULIN -REGULAR HUMAN 50 UNIT/0.5 ML ML SQ SCH ×4 (07:30→21:00)
[2022-07-13 07:55] LABS: SARS-CoV-2 Antigen Rapid Res Negative (Negative)
[2022-07-13] MEDS: ASPIRIN 81 MG CHEWABLE TABLET PO SCH (09:00)
[2022-07-13] MEDS ORDERED: ASPIRIN 81 MG CHEWABLE TABLET ONE (09:26)
[2022-07-13] MEDS ORDERED: ACETAMINOPHEN 325 MG TABLET ONE (09:28)
[2022-07-13 12:44] VITALS: O2SAT 94
--- NOTE | 2022-07-13 15:16 | CON ---
Date of Consultation: 07/13/2022 Reason For Consultation: Chest pain. History Of Present Illness: A 56-year-old male, history of hypertension, diabetes, dyslipidemia, cor onary artery disease, 8 stents in the past, congestive heart failure with reduced ejection fraction, presented with chest pain, retrosternal, no radiation, not related to exertion. There is no nausea o r diaphoresis. Denies having any other complaints. Pain is completely resolved and the patient is h emodynamically stable. Past Medical History: As outlined above in the HPI. Medications: Refer to reconciliation sheet for detailed list. Allergies: ISOSORBIDE. Family History: No premature coronary artery disease or cancer. Social History: Does not smoke or drink. Does not use any drugs. Review of Systems: All systems reviewed and they were negative except what mentioned in HPI. Physical Examination: Vital Signs: Reviewed. Head and Neck: Pupils are equal, reactive to light. Intact eye movements. No JVD. No cervical lym phadenopathy. Neck is supple. Thyroid is not enlarged. Lungs: Clear to auscultation bilaterally. No rhonchi, wheezing, or crackles. No accessory muscle u se. Heart: Regular rate and rhythm. No extra sounds. Abdomen: Soft, nontender. Bowel sounds positive. No organomegaly. No masses or hernia. No rigidi ty or rebound. Extremities: No edema, clubbing, or cyanosis. Intact pulses. Skin: No rash. Neurologic: Alert, awake, oriented x3. No acute focal deficits appreciated. Lymph Nodes: No cervical or axillary lymphadenopathy. Investigations: BUN 16, creatinine 1.44. Troponin peaked at 106, now down to 85. Assessment And Recommendations: 1.Chest pain with borderline elevated troponin; however, it is trending down. The patient is known to have a history of coronary artery disease, status post multiple stents in the past. Agree with th erapeutic dose of Lovenox and plan for coronary angiogram early next week and continue baby aspirin. Please obtain echocardiogram in the morning. 2.Diabetes. Sugars are being monitored and covered with regular insulin as needed. 3.Hypertension. Resume home medications. Adjust blood pressure medications for systolic less than 140. SR/MODL Voice ID: [id number] Report ID: [id number]
[2022-07-13] MEDS: ACETAMINOPHEN 325 MG TABLET PO PRN (17:19)
--- NOTE | 2022-07-13 18:45 | RAD REPORT ---
EXAM DESCRIPTION: RAD - Chest Single View - 07/13/2022 3:11 am CLINICAL HISTORY: 56 years, Male, CHEST PAIN COMPARISON: 09/16/2021. FINDINGS: Single view of the chest was obtained portable. Prior films were compared. There is a dual -lead pacemaker defibrillator in place. The heart is enlarged. The thoracic aorta demonstrate minimal intimal calcification. No significant pleural effusion. The pulmonary vasculature is unremarkable. The rest of the soft tissue and bony structures demonstrate to be unremarkable. IMPRESSION: Cardiomegaly. Pacemaker defibrillator in place. Electronically signed by: Cm Dobson MD 07/13/2022 3:43 AM PARTS COUNTERMAN Due to temporary technical issues with the PACS/Fluency reporting system, reports are being signed by the in house radiologists without review as a courtesy to insure prompt reporting. The interpreting radiologist is fully responsible for the content of the report.
[2022-07-13] MEDS ORDERED: MORPHINE 2 MG/ML SYR IV ONE (23:34)
[2022-07-13] MEDS ORDERED: MELATONIN 5 MG TABLET PO ONE (23:38)
[2022-07-14 06:22] LABS: Magnesium 1.9 mg/dL (1.6-2.4); Phosphorus 4.6 mg/dL (2.5-4.9); Potassium 4.6 mmol/L (3.5-5.1)
[2022-07-14] MEDS: INSULIN -REGULAR HUMAN 50 UNIT/0.5 ML ML SQ SCH ×2 (07:30→11:30)
[2022-07-14 07:56] VITALS: BMI 38.5
[2022-07-14 08:49] VITALS: TEMP 97.4
[2022-07-14] MEDS: ASPIRIN 81 MG CHEWABLE TABLET PO SCH (10:40)
[2022-07-14] MEDS: ACETAMINOPHEN 325 MG TABLET PO PRN (10:43)
[2022-07-14] MEDS ORDERED: CODEINE 30MG/APAP 300MG TAB PO PRN (11:08)
[2022-07-14] MEDS ORDERED: MORPHINE 2 MG/ML SYR IV PRN (11:08)
[2022-07-14 12:05] VITALS: BP 151/95
--- NOTE | 2022-07-14 12:44 | P.DS ---
Discharge Date: 07/14/22 Disposition: TRANSFER TO [facility] Reason for Admission: Chest pain, NSTEMI. Consultations: Line Installation Supervisor Brief History of Present Illness: 56-year-old male patient with medical history significant for hypertension, diabetes type 2, hyperlipidemia, coronary artery disease status post stents placement x8, CHF with rEF who was evaluated in the emergency room for episode of chest pain. He reported chest pain to be central rated 10 out of 10 in intensity. No issues with nausea with vomiting, dizzy spells, fever, chills, shortness of breath episode with chest pain. No feeling of impending sense of doom. Pain is nonradiating to any limb. Because of concerning symptoms he had labs done in the emergency room with slightly elevated troponin of 100. He was asked to be admitted for ACS rule out. Hospital Course: Patient troponins were downtrending. Cardiology recommended echocardiogram. We are pending results at this time. If this is unremarkable then patient will discharge with outpatient cardiology follow-up. He tends to have chronic pain issues as well. We will continue him on pain control at discharge. Vital Signs/Physical Exam: Temp Pulse Resp BP Pulse Ox 97.4 F 103 H 16 151/95 H 98 07/14/22 12:00 07/14/22 12:00 07/14/22 12:00 07/14/22 12:00 07/14/22 12:00 General: Alert, In no apparent distress, Confused Laboratory Data at Discharge: WBC 5.90 K/uL (4.3-10.9) 07/13/22 02:39 Hgb 11.8 g/dL (13.6-17.9) L 07/13/22 02:39 Hct 37.2 % (39.6-49.0) L 07/13/22 02:39 Plt Count 387 K/uL (152-406) 07/13/22 02:39 Sodium 137 mmol/L (136-145) 07/14/22 05:46 Potassium 4.6 mmol/L (3.5-5.1) 07/14/22 05:46 BUN 16 mg/dL (7-18) 07/14/22 05:46 Creatinine 1.25 mg/dL (0.70-1.30) 07/14/22 05:46 Glucose 96 mg/dL (74-106) 07/14/22 05:46 Phosphorus 4.6 mg/dL (2.5-4.9) 07/14/22 05:46 Magnesium 1.9 mg/dL (1.6-2.4) 07/14/22 05:46 Triglycerides 61 mg/dL (<150) 07/14/22 05:46 Cholesterol 117 mg/dL (<200) 07/14/22 05:46 HDL Cholesterol 32 mg/dL (40-60) L 07/14/22 05:46 Cholesterol/HDL Ratio 3.66 07/14/22 05:46 Home Medications: Acetaminophen with Codeine [Tylenol with-Codeine #3 Tablet] 1 tab PO Q6HR PRN 07/13/22 Apixaban [Eliquis] 2.5 mg PO DAILY 07/13/22 Aspirin [Quoc Chewable] 81 mg PO DAILY 07/13/22 Atorvastatin Calcium [Lipitor] 80 mg PO BEDTIME 07/13/22 Carvedilol [Coreg] 25 mg PO BID 07/13/22 Cholecalciferol (Vitamin D3) [Vitamin D3] 25 mcg PO DAILY 07/13/22 Dapagliflozin Propanediol [Farxiga] 10 mg PO DAILY 07/13/22 Docusate Sodium 100 mg PO DAILY 07/13/22 Gabapentin [Neurontin] 100 mg PO TID 07/13/22 Glipizide [Glipizide ER] 5 mg PO DAILY 07/13/22 Lisinopril [Zestril] 2.5 mg PO DAILY 07/13/22 Magnesium Oxide 400 mg PO DAILY 07/13/22 Spironolactone 25 mg PO DAILY 07/13/22 Tizanidine HCl 2 mg PO Q8HR PRN 07/13/22 Physician Discharge Instructions: -DC IV and DC home -Follow-up with PCP in 1 to 2 weeks -Follow-up with Cardiology in 1 to 2 weeks -Please call Dr. Larios at [phone] if any questions regarding hospital stay -Please call nursing station at [phone] if any nursing or medication questions -Return to the emergency room if symptoms worsen Diet: AHA Activity: Fall precautions Followup: NONE,NONE [Primary Care Provider] - Time spent managing pt's care (in minutes): 35
--- NOTE | 2022-07-14 14:59 | EKG ---
Test Date: 2022-07-13 Test Time: 02:31:06 Money Room Teller: ANUPAMA MEASUREMENT RESULTS: Intervals: Rate: 97 TX: 142 QRSD: 202 QT: 460 QTc: 584 [place]: P: 71 TX: 142 QRS: -35 T: 82 INTERPRETIVE STATEMENTS: Poor data quality, interpretation may be adversely affected Atrial-sensed ventricular-paced rhythm Biventricular pacemaker detected Abnormal ECG Compared to ECG 09/16/2021 18:37:25 No significant changes Electronically Signed On 07-14-22 14:55:52 HOUSEKEEPING STAFF by Vinay Huerta
[2022-07-14] MEDS ORDERED: MELATONIN 5 MG TABLET PO ONE (23:36)
--- NOTE | 2022-07-15 06:48 | ECHO ---
HEIGHT: 6 ft 2 in WEIGHT: 299 lb 11.2 oz DATE OF STUDY: 07/14/[address]: Orlando Story MD 2-DIMENSIONAL: YES M.MODE: YES DOPPLER: YES COLOR FLOW: YES TDS: PORTABLE: YES DEFINITY: BUBBLE STUDY: DIAGNOSIS: EVALUATION OF CHEST PAIN CARDIAC HISTORY: CATHERIZATION: NO SURGERY: NO PROSTHETIC VALVE: NO PACEMAKER: YES MEASUREMENTS (cm) DIASTOLIC (NORMALS) SYSTOLIC (NORMALS) IVSd 1.5 (0.6-1.2) LA Diam 3.9 (1.9-4.0) LVEF 23% LVIDd 5.8 (3.5-5.7) LVIDs 5.2 (2.0-3.5) %FS 11% LVPWd 1.7 (0.6-1.2) Ao Diam 3.3 (2.0-3.7) 2 DIMENSIONAL ASSESSMENT: RIGHT ATRIUM: NORMAL LEFT ATRIUM: NORMAL RIGHT VENTRICLE: NORMAL LEFT VENTRICLE: DILATED TRICUSPID VALVE: MILD TRICUSPID REGURGITATION MITRAL VALVE: THICKENED WITH MITRAL REGURGITATION PULMONIC VALVE: MILD PULMONIC INSUFFICIENCY AORTIC VALVE: NORMAL PERICARDIAL EFFUSION: NONE AORTIC ROOT: NORMAL LEFT VENTRICULAR WALL MOTION: SEVERE GLOBAL HYPOKINESIS DOPPLER/COLOR FLOW: SEE BELOW COMMENTS: 1. SEVERELY DEPRESSED LEFT VENTRICULAR EJECTION FRACTION 20-25% 2. SEVERE GLOBAL HYPOKINESIS 3. MILD MITRAL REGURGITATION/ TRICUSPID REGURGITATION 4. SEVERE PULMONARY HYPERTENSION WITH RIGHT VENTRICULAR SYSTOLIC PRESSURE GREATER THAN 60 mmHg. TECHNOLOGIST: OLINDA CARREON
--- NOTE | 2022-07-15 20:52 | PN ---
Date of Progress Note: 07/14/2022 Subjective: Seen at bedside. He is stable. No further chest pain. Review of Systems: No chest pain, shortness of breath, orthopnea, cough. No nausea, vomiting, diarrhea. All other syst ems reviewed are negative. Physical Examination: Vital Signs: Reviewed. Head and Neck: Pupils are equal, reactive to light. Intact eye movements. No JVD. No adenopathy. Neck is supple. Thyroid is not enlarged. Lungs: Clear to auscultation bilaterally. No rhonchi, rales, or crackles. No accessory muscle use. Heart: Regular rate and rhythm. No extra sounds. Abdomen: Soft, nontender. Bowel sounds positive. No organomegaly. No masses or hernia. No rigidi ty or rebound. Extremities: No clubbing, cyanosis. Intact pulses. Skin: No rash. Neurologic: Alert, awake, oriented x3. No acute events appreciated. Investigations: Labs reviewed. Assessment And Recommendation: Chest pain, borderline elevated troponin. No coronary artery disease history. EF on echo was extremely low with global hypokinesis. The patient will need ischemia work up done. At this point, we can start with a Lexiscan nuclear stress test and plan for coronary angio gram only if the stress test is abnormal. SR/MODL Voice ID: [id number] Report ID: [id number]
== END 2022-07-14 15:54 | DRG 313 ==
LOC: ER 02:30 → ERHOLD 04:08 → 4TH 12:26 → OBSVTOIN 07-14 09:56
PROVIDERS: ADMIT Internal Medicine Nephrology; ATTEND Hospitalist
DX: R07.9 Chest pain, unspecified (principal); I50.22 Chronic systolic (congestive) heart failure; I11.0 Hypertensive heart disease with heart failure; I25.10 Atherosclerotic heart disease of native coronary artery without angina pectoris; E11.9 Type 2 diabetes mellitus without complications; E78.5 Hyperlipidemia, unspecified; R77.8 Other specified abnormalities of plasma proteins; G89.29 Other chronic pain; Z95.5 Presence of coronary angioplasty implant and graft; Z95.0 Presence of cardiac pacemaker; Z79.01 Long term (current) use of anticoagulants; Z79.82 Long term (current) use of aspirin; Z79.899 Other long term (current) drug therapy; Z88.8 Allergy status to other drugs, medicaments and biological substances; Z20.822 Contact with and (suspected) exposure to COVID-19; Z82.49 Family history of ischemic heart disease and other diseases of the circulatory system; Z83.3 Family history of diabetes mellitus
CPT/HCPCS: 36415; 71045; 80048; 80061; 82947; 83735; 83880; 84100; 84484; 85025; 87811; 93005; 93306; 96372; 97161; 97530; 99285; G0378; J1650; J2270

== ENCOUNTER 2024-05-02 18:33 | Emergency (ER) | payer OTHER ==
--- OUTSIDE RECORDS SUMMARY | 2024-05-02 18:54 | XMS REPORT | Continuity of Care Document ---
Author Name Unknown Address [address] [place] [address] [facility] thconnect Address [address] [place] [address] Care Team Providers Care Snipper Name Role Phone Mj MICROSTRATEGY REPORTS DEVELOPER, Brooks Primary Care Physician [phone] SEBLE PRICE Attending Clinician Unavailable ADIN ARELLANO Attending Clinician Unav ailable ADIN ARELLANO Attending Clinician Unav ailBROOKS Jo Attending Clinician Unavailab BROOKS Brooks Attending Clinician Unavailab REBECCA Álvarez Attending Clinician Unavailorlin LADD, SENDDANE K.H. Attending Clinician UnavailKERWIN Miranda Attending Clinician Unavailable KERWIN WHITE Attending Clinician Unavailable Wilberto BOYER, Sendil K.H. Attending Clinician [phone] Mj MICROSTRATEGY REPORTS DEVELOPER, Brooks Attending Clinician [phone] Deysi Bone PA-C Attending Clinician + [phone] DEYSI BONE Attending Clinician Unavailable DEYSI BONE Attending Clinician Unavailable Flip Zavala RN Attending Clinician Unavail able BJ WEISS Attending Clinician Unavailable Michelle Miranda MD Attending Clinician +[phone] Bj Weiss MD Attending Clinician +[phone] Alexander, Cardiomem Interp Attending Clinician Kim Mantilla NP Attending Clinician + [phone] KIM PATE Attending Clinician UnavailEMIL Cedeño Attending Clinician Unavailab francoise Alexander, Cardiomem Interp Attending Clinician Donovan Parkinson Attending Clinician [phone] DONOVAN BILLINGSLEY Attending Clinician Unavailable Debby Solano Attending Clinician [phone] Jorge Barone Attending Clinician +[phone] GATO STOKES Attending Clinician UnavailGATO Poon Attending Clinician Unavailwoo Ladd MD, Sendil K.H. Attending Clinician [phone], Adc Lab Attending Clinician Unavailable Rio BEE, Kim Attending Clinician + [phone] Doctor Unassigned, [place] Attending Clinician U loi Sanderson MD, Cornelia Attending Clinician +[phone] Neftali PHOTOGRAPHY MANAGER, Jonathan Valderrama Attending Clinician +[phone] JONATHAN LINDSAY Attending Clinician Unavailwoo Price MD, Seble Attending Clinician +[phone] KELYL KNOWLES Attending Clinician Unavailable JORGE YAÑEZ Attending Clinician Unavailable Estela BOYER, Rebecca Attending Clinician + [phone] TANA WHITMORE Attending Clinician Unavailable Myranda PHOTOGRAPHY MANAGER, Tana Saba Attending Clinician +[phone] CORNELIA SANDERSON Attending Clinician Unavailable Maria E Fischer MD Attending Clinician +[phone] JUAN HERNANDEZ Attending Clinician Unavailable Adrianna Heath MD Attending Clinician +[phone] ADRIANNA HEATH Attending Clinician Unavailable Page Seth RN Attending Clinician Unavailab francoise PARKP, Khanh Attending Clinician + [phone] Criss Leyva DO Attending Clinician +[phone] Bj Weiss MD Attending Clinician +[phone] KIMI YADAV Attending Clinician Unavailwoo Yadav MD, Kimi Vázquez Attending Clinician [phone] Asad Armendariz MD Attending Clinician +[phone] HALLIE GREENBERG Attending Clinician Rebecca Greenberg MD, Hallie Brito Attending Clinician + Tarun BAKER, Lilli Saba Attending Clinician +[phone] MARY REYNAGA Attending Clinician Unavailab Mary Champagne DO Attending Clinician + [phone] Robert BOYER, Kim Ordaz Attending Clinician +[phone] Doris Amaral MD Attending Clinician +[phone] PRUDENCE COHEN Attending Clinician Unavaila ble Vicki PHOTOGRAPHY MANAGER, Prudence Attending Clinician Bartolome BOYER, Sunshine T Attending Clinician KIM JONES Attending Clinician Unava maria dolores Mata RN, Chelo Attending Clinician Unavailable Elise BOYER, Prieto Vanegas Attending Clinician [phone] Jacky BOYER, Gino Farmer Attending Clinician +[phone] SUNSHINE KLEIN Attending Clinician Unavaila ble SUNSHINE KLEIN Attending Clinician Unavaila rebeca Gonzalez RN, Alisa Saba Attending Clinician UnavaPIA Sandoval Attending Clinician Unavailable Pia Watts DO Attending Clinician [phone] CRISS LEYVA Attending Clinician Unavailable Maynor BOYER, Tomas Diaz Attending Clinician +[phone] Abilio PHOTOGRAPHY MANAGER, Denis Attending Clinician +[phone] Merry BAKER, Erica Choudhary Attending Clinician +[phone] MIKO MONTALVO Attending Clinician Unavailable JOSEPH QUINONES Attending Clinician Unavailab Joseph Tovar DO Attending Clinician +[phone] TONYA CARRION Attending Clinician Unavailable Tc THOMPSONP, Karine Farmer Attending Clinician [phone] Jose BOYER, Steven Attending Clinician +[phone] Stevenson BOYER, Fran Attending Clinician + [phone] Tonya Carrion MD Attending Clinician [phone] Piter BAKER, Adilene Attending Clinician Unavailabl e [place], Nephrology Attending Clinician Unavaila ble 1, Adc Sleep Lab Bed Attending Clinician Unavail able Only, Adc Test Attending Clinician Unavailable REBECCA PALMER Attending Clinician UnavailJanina Barkley DO Attending Clinician [phone] Artemio [facility], Shahnaz Saba Attending Clinician +[phone] Bret BOYER, Elizabet Sanchez Attending Clinician Heather BOYER, Juan Pulido Attending Clinici an Visit, Adc Nurse Attending Clinician Unavailable Michelle Miranda MD Attending Clinician [phone] Major BAKER, Radha Hernández Attending Clinician Unavaila ble Pob, Adc Lab Main Attending Clinician UnavailMARIA E Long Attending Clinician Unavailable Jairo JORDAN Attending Clinician Unavailable Nikki PACJairo Attending Clinician +[phone] Olga BOYER, Oh Attending Clinician +[phone] Magdi BAKER, Yvonne Saba Attending Clinician Unavail able Jonel FINNEGAN, Henrique B Attending Clinician +[phone] Romel Burns OT Attending Clinician Unava maria dolores Stokes MD, Gato Saba Attending Clinician [phone] Ana VALDEZ, Austin Fields Attending Clinician Unavail able Vanita BOYER, Janiya Attending Clinician +[phone] OH ESPINOZA Attending Clinician Unavailable ALICIA TELLEZ Attending Clinician Unavailable ALICIA TELLEZ Attending Clinician Unavailable Jose BOYER, Rafy Middleton Attending Clinician RAFY UGARTE Attending Clinician Un available Cate Lau MD Attending Clinician +[phone] CATE LAU Attending Clinician Unavailable UNKNOWN, ATTENDING Attending Clinician Unavailab le Unknown, Attending Attending Clinician Unavailab LORETA Rosen Attending Clinician Unaobinna Degroot RN, Macy Attending Clinician Unavailable Izaiah Hobbs DO Attending Clinician +[phone] Thelma Gallardo MD Attending Clinician +[phone] Israel Morgan MD Attending Clinician +[phone] Ursula FINNEGAN, Taz Miller Attending Clinician +[phone] FERNANDA SANDERS Attending Clinician Unavailable MOHSEN VASQUES Attending Clinician Unavail able Jason FINNEGAN, Destiny Attending Clinician [phone] Nurse, Scotty Pob Immunization Attending Clinician Unavailable Mohsen Vasques DO Attending Clinician [phone] DEBBY BROWN Attending Clinician Unavailable Doris Christensen RN Attending Clinician Unavailable KARINE LOJA Attending Clinician Unavaila LUIS ANGEL Jonh Attending Clinician Unavailable Luis Angel Paul Attending Clinician + [phone] OREN DALAL Attending Clinician Unavailable Oren Dalal MD Attending Clinician +[phone] Claudia BEE, Sherrie Elias Attending Clinician +[phone] Adilene Petersen RN Attending Clinician +[phone], [facility] Infusion Nurse Attending Clinician Pelon lobo Nurse, Darío Melton Pedi Attending Clinician Unavaila rebeca Trinh MD, Fran Culver Attending Clinician +[phone] Jackelyn Obregon Attending Clinician + [phone] Stephan Juan Attending Clinician Unavailable Ayush Vieira MD Attending Clinician +[phone] Estefani Dillon MD Attending Clinician +[phone] DORIS AMARAL Attending Clinician Unavailable Precious Bae Attending Clinician Unavailable Isac Rouse Attending Clinician Unavailable Yared Scott Attending Clinician Unavailable MILAN RAYO Attending Clinician UnavailMilan Engel Attending Clinician +[phone] AYUSH VIEIRA Attending Clinician Unavail able AYUSH VIEIRA Attending Clinician Unavail able CHUCKIE RODRÍGUEZ Attending Clinician Unavail able Benoit Tello Attending Clinician UnavailCM [place] Attending Clinician UnavailMARIA E Shields Attending Clinician Unavailable JANICE VINES Attending Clinician Unavailable LISANDRA ADAMS Attending Clinician Unavailable RADIOLOGY Attending Clinician Unavailable JOSE MARLOW Attending Clinician Unavailable DENIS KNOX Attending Clinician Unavailable ABBY COHEN Attending Clinician Unavailable JANIYA WALDRON Attending Clinician Unavailable SALOME GORDON Attending Clinician Unavailable JO RANDLE Attending Clinician Unavail able SEBLE PRICE Admitting Clinician Unavailable BJ WEISS Admitting Clinician Unavailable Bj Weiss MD Admitting Clinician [phone] EMIL FREEMAN Admitting Clinician Unavailab JUDAH Coppola Admitting Clinician Unavailab DAVID Zuniga.HTej Admitting Clinician Unavaila JORGE Galeas Admitting Clinician Unavailable Bj Weiss MD Admitting Clinician +[phone] KIMI YADAV Admitting Clinician Unavailabl JOSEFINA ParadaKimberly [facility] Admitting Clinician Unav savita Greenberg MD, [facility] Admitting Clinician + MARY REYNAGA Admitting Clinician Unavailab Gino Mcallister MD Admitting Clinician [phone] GINO RICO Admitting Clinician Unavailabl CRISS Alexadner Admitting Clinician Unavailable Criss Leyva DO Admitting Clinician +[phone] FRAN GAMINO Admitting Clinician Unavailab PIA Oneal Admitting Clinician Unavailable Oh Espinoza MD Admitting Clinician +[phone] OH ESPINOZA Admitting Clinician Unavailable Rafy Ugarte MD Admitting Clinician RAFY UGARTE Admitting Clinician Un available Judi BOYER, Af Admitting Clinician [phone] CATE LAU Admitting Clinician Unavailable Jairo JORDAN Admitting Clinician Unavailable Kalen [facility]oto MD, [facility] Admitting Clinician +[phone] DEBBY BROWN Admitting Clinician Unavailable LUIS ANGEL JIMENEZ Admitting Clinician Unavailable KIM JONES Admitting Clinician Unava ilOREN Singh Admitting Clinician Unavailable Oren Dalal MD Admitting Clinician [phone] JUAN HERNANDEZ Admitting Clinician Unavailable Juan Hernandez MD Admitting Clinici an Stephan Juan Admitting Clinician Unavailable Physician, No Primary or Family Admitting Clinic sarah Unavailable ESTEFANI DILLON Admitting Clinician Unavailable Estefani Dillon MD Admitting Clinician [phone] Precious Bae Admitting Clinician Unavailable Yared Scott Admitting Clinician Unavailable KELLY KNOWLES Admitting Clinician Unavailable Benoit Tello Admitting Clinician UnavailMARIA E Shields Admitting Clinician Unavailable LISANDRA ADAMS Admitting Clinician Unavailable ADRIANNA SHIRLEY Admitting Clinician Unavailable DENIS KNOX Admitting Clinician Unavailable DORIS AMARAL Admitting Clinician Unavailable TRISHA LOPES Admitting Clinician Unavailable JANIYA WALDRON Admitting Clinician Unavailable Payers Payer Name Policy Type Policy Number Effective Date Expirati on Date Source MEDICARE PART A \\T\\ B [id number] 2002 00:00:00 [employer] [id number] 2022 00:00:00 [place] [id number] 2011 00:00:00 [facility] [id number] 00:00:00 Problems Condition Name Condition Details Condition Category Status Onset Date Resolution Date Last Treatment Date Treating Clinician Comments Source 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 Disease Active 9- 00:00: 00 [facility] Morbid obesity Morbid obesity Disease Active 9- 00:00: 00 [facility] Effusion of left knee Effusion of left knee Disease Active 03-04 00:00: 00 [facility] Pain and swelling of left knee Pain and swelling of left knee Disease Active 03-04 00:00: 00 [facility] Primary osteoarthr itis of left knee Primary osteoarthr itis of left knee Disease Active - 00:00: 00 [facility] Internal hemorrhoid s Internal hemorrhoid s Disease Active 04-09 00:00: 00 [facility] Presence of cardiac resynchron ization therapy defibrilla tor (LIBRARY ACQUISITIONS TECHNICIAN-D) Presence of cardiac resynchron ization therapy defibrilla tor (LIBRARY ACQUISITIONS TECHNICIAN-D) Disease Active 1-19 00:00: 00 [facility] GIUSEPPE (acute kidney injury) GIUSEPPE (acute kidney injury) Disease Active 2021-08 1-05 00:00: 00 [facility] Obesity (BMI 30-39.9) Obesity (BMI 30-39.9) Disease Active 2021-08 1-05 00:00: 00 [facility] GIUSEPPE (acute kidney injury) GIUSEPPE (acute kidney injury) Disease Active 2021-08 105 00:00: 00 [facility] Somnolence Somnolence Disease Active 2021-08 1- 00:00: 00 [facility] SOB (shortness of breath) SOB (shortness of breath) Disease Active 2021-08 0-31 00:00: 00 [facility] CHF (congestiv e heart failure), NYHA class IV, acute, combined CHF (congestiv e heart failure), NYHA class IV, acute, combined Disease Active 2021-08 0-30 00:00: 00 [facility] Encounter for colorectal cancer screening Encounter for colorectal cancer screening Disease Active 2021-08 0-25 00:00: 00 Overview: Formattin g of this note might be different from the original. 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 Disease Active 8-04 00:00: 00 [facility] Troponin I above reference range Troponin I above reference range Disease Active 8-04 00:00: 00 [facility] Hypertensi ve emergency Hypertensi ve emergency Disease Active 8-04 00:00: 00 [facility] 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 Disease Active 8-04 00:00: 00 [facility] Chest pain, unspecifie d type Chest pain, unspecifie d type Disease Active 8-03 00:00: 00 [facility] Chest pain Chest pain Disease Active 5-12 00:00: 00 [facility] Decreased activities of daily living (ADL) Decreased activities of daily living (ADL) Disease Active 3-22 00:00: 00 [facility] History of cerebrovas cular accident (CVA) with residual deficit History of cerebrovas cular accident (CVA) with residual deficit Disease Active 3-22 00:00: 00 [facility] PAF (paroxysma l atrial fibrillati on) PAF (paroxysma l atrial fibrillati on) Disease Active 3-07 00:00: 00 [facility] NSTEMI (non-ST elevated myocardial infarction ) NSTEMI (non-ST elevated myocardial infarction ) Disease Active 2-19 00:00: 00 [facility] Left-sided weakness Left-sided weakness Disease Active 5-17 00:00: 00 [facility] Noncomplia nce Noncomplia nce Disease Active 5-11 00:00: 00 [facility] Dyslipidem ia Dyslipidem ia Disease Active 3-11 00:00: 00 [facility] Chronic left-sided low back pain with sciatica, sciatica laterality unspecifie d Chronic left-sided low back pain with sciatica, sciatica laterality unspecifie d Disease Active 2-12 00:00: 00 [facility] Cardiac resynchron ization therapy defibrilla tor (LIBRARY ACQUISITIONS TECHNICIAN-D) in place Cardiac resynchron ization therapy defibrilla tor (LIBRARY ACQUISITIONS TECHNICIAN-D) in place Disease Active 1-13 00:00: 00 [facility] Heart block Heart block Disease Recurre nce 1-05 00:00: 00 [facility] Chest pain of unknown etiology Chest pain of unknown etiology Disease Active 8-31 00:00: 00 [facility] Stage 3 chronic kidney disease Stage 3 chronic kidney disease Disease Active 4-18 00:00: 00 [facility] Diverticul osis large intestine w/o perforatio n or abscess w/o bleeding Diverticul osis large intestine w/o perforatio n or abscess w/o bleeding Disease Active 720 00:00: 00 [facility] PRAVEEN on CPAP PRAVEEN on CPAP Disease Active 14 00:00: 00 [facility] Chronic combined systolic and diastolic CHF, NYHA class 2 Chronic combined systolic and diastolic CHF, NYHA class 2 Disease Active 09-22 00:00: 00 [facility] LVH (left ventricula r hypertroph y) LVH (left ventricula r hypertroph y) Disease Active 09-22 00:00: 00 [facility] Nonischemi c cardiomyop athy Nonischemi c cardiomyop athy Disease Active 09-22 00:00: 00 [facility] Metabolic syndrome Metabolic syndrome Disease Active 2014-08 00:00: 00 [facility] ACC/AHA stage B congestive heart failure ACC/AHA stage B congestive heart failure Disease Active 2014-08 00:00: 00 [facility] PRAVEEN (obstructi ve sleep apnea) PRAVEEN (obstructi ve sleep apnea) Disease Active 2014-08 00:00: 00 [facility] Essential hypertensi on Essential hypertensi on Disease Active 2014-08 00:00: 00 [facility] Type 2 diabetes mellitus with complicati on, without long-term current use of insulin Type 2 diabetes mellitus with complicati on, without long-term current use of insulin Disease Active 2014-08 00:00: 00 [facility] 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 Disease Active 2014-08 00:00: 00 [facility] CVA, old, hemiparesi s CVA, old, hemiparesi s Disease Active 2014-08 00:00: 00 [facility] Chronic dental pain Chronic dental pain Disease Active 2014-08 00:00: 00 [facility] Chronic dental pain Chronic dental pain Disease Active 2014-08 0-01 00:00: 00 [facility] Chest pain, unspecifie d type Chest pain, unspecifie d type Disease Resolve d 0 7-16 00:00: 00 2022-03-04 00:00:00 2022-03-04 18:46:31 [facility] Stroke determined by clinical assessment Stroke determined by clinical assessment Disease Resolve d 0 3-02 00:00: 00 2022-03-04 00:00:00 2022-03-04 18:46:35 [facility] Elevated troponin I level Elevated troponin I level Disease Resolve d 2020-08 2-20 00:00: 00 2022-03-04 00:00:00 2022-03-04 18:46:42 [facility] Obesity (BMI 30-39.9) Obesity (BMI 30-39.9) Disease Resolve d 2020-08 0-16 00:00: 00 2022-03-04 00:00:00 2022-03-04 18:46:41 [facility] Morbid obesity Morbid obesity Disease Resolve d 0 7-24 00:00: 00 2022-03-04 00:00:00 2022-03-04 18:46:40 [facility] Stroke, acute, embolic Stroke, acute, embolic Disease Resolve d 0 5-17 00:00: 00 2022-03-04 00:00:00 2022-03-04 18:46:38 [facility] Acute CVA (cerebrova scular accident) Acute CVA (cerebrova scular accident) Disease Resolve d 0 3-24 00:00: 00 2022-03-04 00:00:00 2022-03-04 18:46:20 [facility] Acute on chronic systolic congestive heart failure Acute on chronic systolic congestive heart failure Disease Resolve d 2019-08 2-29 00:00: 00 2022-03-04 00:00:00 2022-03-04 18:46:03 [facility] Acute on chronic systolic and diastolic heart failure, NYHA class 3 Acute on chronic systolic and diastolic heart failure, NYHA class 3 Disease Resolve d 2019-08 0-14 00:00: 00 2022-03-04 00:00:00 2022-03-04 18:46:16 [facility] GIUSEPPE (acute kidney injury) GIUSEPPE (acute kidney injury) Disease Resolve d 4-20 00:00: 00 2021 00:00:00 2021 18:43:48 [facility] Acute right-side d CHF (congestiv e heart failure) Acute right-side d CHF (congestiv e heart failure) Disease Resolve d 4-01 00:00: 00 2021 00:00:00 2021 18:43:47 [facility] Elevated troponin Elevated troponin Disease Resolve d 2-26 00:00: 00 2021 00:00:00 2021 18:43:42 [facility] Acute on chronic heart failure, unspecifie d heart failure type Acute on chronic heart failure, unspecifie d heart failure type Disease Resolve d 1-20 00:00: 00 2021 00:00:00 2021 18:43:38 [facility] SOB (shortness of breath) SOB (shortness of breath) Disease Resolve d 1-12 00:00: 00 2021 00:00:00 2021 18:44:15 [facility] Congestive heart failure, unspecifie d HF chronicity , unspecifie d heart failure type Congestive heart failure, unspecifie d HF chronicity , unspecifie d heart failure type Disease Resolve d 1-11 00:00: 00 2021 00:00:00 2021 18:44:12 [facility] COVID-19 virus infection COVID-19 virus infection Disease Resolve d 2020-08 2-20 00:00: 00 2021 00:00:00 2021 18:43:50 [facility] Hypertensi ve emergency Hypertensi ve emergency Disease Resolve d 2020-08 2-20 00:00: 00 2021 00:00:00 2021 18:43:52 [facility] CHF with unknown LVEF CHF with unknown LVEF Disease Resolve d 2020-08 1-29 00:00: 00 2021 00:00:00 2021 18:44:09 [facility] 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) Disease Resolve d 2020-08 0-03 00:00: 00 2021 00:00:00 2021 18:44:06 [facility] Pulmonary edema with congestive heart failure Pulmonary edema with congestive heart failure Disease Resolve d 7-23 00:00: 00 2021 00:00:00 2021 18:44:17 [facility] Chest pain Chest pain Disease Resolve d 7-19 00:00: 00 2021 00:00:00 2021 18:44:19 [facility] Non-intrac table vomiting with nausea, unspecifie d vomiting type Non-intrac table vomiting with nausea, unspecifie d vomiting type Disease Resolve d 2-06 00:00: 00 2021 00:00:00 2021 18:44:29 [facility] Cardiomyop athy Cardiomyop athy Disease Resolve d 1-21 00:00: 00 2021 00:00:00 2021 18:44:32 [facility] Diabetic eye exam Diabetic eye exam Disease Resolve d 7-11 00:00: 00 2021 00:00:00 2021 18:44:34 [facility] Atypical chest pain Atypical chest pain Disease Resolve d 2015-08 2-20 00:00: 00 2021 00:00:00 2021 18:44:36 [facility] ICD (implantab le cardiovert er-defibri llator) in place ICD (implantab le cardiovert er-defibri llator) in place Disease Resolve d 1-12 00:00: 00 2021-07-19 00:00:00 2021-07-19 15:26:26 [facility] Systolic CHF, acute on chronic Systolic CHF, acute on chronic Disease Resolve d 2020-08 0-15 00:00: 00 2021-06-04 00:00:00 2021-06-04 15:17:28 [facility] Heart failure Heart failure Disease Resolve d 2020-08 0-06 00:00: 00 2021-06-04 00:00:00 2021-06-04 15:17:49 [facility] NSTEMI (non-ST elevated myocardial infarction ) NSTEMI (non-ST elevated myocardial infarction ) Disease Resolve d 2-26 00:00: 00 2021-06-04 00:00:00 2021-06-04 15:17:40 [facility] PAF (paroxysma l atrial fibrillati on) PAF (paroxysma l atrial fibrillati on) Disease Resolve d 8-09 00:00: 00 2021-06-04 00:00:00 2021-06-04 15:17:35 [facility] Myocardial infarction type 2 Myocardial infarction type 2 Disease Resolve d 1-29 00:00: 00 2021-06-04 00:00:00 2021-06-04 15:17:45 [facility] Acute decompensa breanne heart failure Acute decompensa breanne heart failure Disease Resolve d 8-10 00:00: 00 2021-04-09 00:00:00 2021-04-09 14:32:57 [facility] Uncontroll ed hypertensi on Uncontroll ed hypertensi on Disease Resolve d 1-25 00:00: 00 2021-04-09 00:00:00 2021-04-09 14:32:43 [facility] Hospital discharge follow-up Hospital discharge follow-up Disease Resolve d 6-03 00:00: 00 2021-02-07 00:00:00 2021-02-07 19:03:57 [facility] Hypertensi ve urgency Hypertensi ve urgency Disease Resolve d 3-13 00:00: 00 2021-02-07 00:00:00 2021-02-07 19:03:44 [facility] Obesity (BMI 30-39.9) Obesity (BMI 30-39.9) Disease Resolve d 1-26 00:00: 00 2021-02-07 00:00:00 2021-02-07 19:03:39 [facility] [facility] Hypotensio n due to hypovolemi a Hypotensio n due to hypovolemi a Disease Resolve d 1-13 00:00: 00 2021-02-07 00:00:00 2021-02-07 19:03:26 [facility] Elevated troponin Elevated troponin Disease Resolve d 1-12 00:00: 00 2021-02-07 00:00:00 2021-02-07 19:03:24 [facility] GIUSEPPE (acute kidney injury) GIUSEPPE (acute kidney injury) Disease Resolve d 2019-08 2-29 00:00: 00 2021-02-07 00:00:00 2021-02-07 19:03:22 [facility] Renal insufficie ncy Renal insufficie ncy Disease Resolve d 2-27 00:00: 00 2021-02-07 00:00:00 2021-02-07 19:03:32 [facility] Hypertensi ve emergency Hypertensi ve emergency Disease Resolve d 1-29 00:00: 00 2021-02-07 00:00:00 2021-02-07 19:03:30 [facility] Chest pain Chest pain Disease Resolve d 5-10 00:00: 00 2021-02-07 00:00:00 2021-02-07 19:03:35 [facility] Morbid obesity with body mass index of 40.0-49.9 Morbid obesity with body mass index of 40.0-49.9 Disease Resolve d 2017-0 4-06 00:00: 00 2021-02-07 00:00:00 2021-02-07 19:03:37 [facility] Troponin I above reference range Troponin I above reference range Disease Resolve d 9- 00:00: 00 2020-05-09 00:00:00 2020-05-09 20:01:04 [facility] Elevated troponin Elevated troponin Disease Resolve d 5-15 00:00: 00 2020-05-09 00:00:00 2020-05-09 20:00:07 [facility] Hypertensi ve urgency Hypertensi ve urgency Disease Resolve d 08 00:00: 00 2020-05-09 00:00:00 2020-05-09 20:00:13 [facility] Headache Headache Disease Resolve d 09-27 00:00: 00 2020-05-09 00:00:00 2020-05-09 20:00:10 [facility] Congestion of nasal sinus Congestion of nasal sinus Disease Resolve d -06 00:00: 00 2020-05-09 00:00:00 2020-05-09 20:00:00 [facility] Viral URI with cough Viral URI with cough Disease Resolve d -06 00:00: 00 2020-05-09 00:00:00 2020-05-09 20:00:54 [facility] Rectal bleeding Rectal bleeding Disease Resolve d 9- 00:00: 00 2020-05-09 00:00:00 2020-05-09 20:01:01 [facility] GIUSEPPE (acute kidney injury) GIUSEPPE (acute kidney injury) Disease Resolve d 2-28 00:00: 00 2020-05-09 00:00:00 2020-05-09 19:59:50 [facility] Blood pressure instabilit y Blood pressure instabilit y Disease Resolve d 2-15 00:00: 00 2020-05-09 00:00:00 2020-05-09 19:59:53 [facility] Morbid obesity with body mass index of 50 or higher Morbid obesity with body mass index of 50 or higher Disease Resolve d 2017-0 4-06 00:00: 00 2020-05-09 00:00:00 2020-05-09 20:00:36 [facility] Hypertensi ve emergency, no CHF Hypertensi ve emergency, no CHF Disease Resolve d 2015-08 2-21 00:00: 00 2020-05-09 00:00:00 2020-05-09 20:00:12 [facility] Obesity Obesity Disease Resolve d 2014-08 00:00: 00 2020-05-09 00:00:00 2020-05-09 20:01:15 [facility] Atypical chest pain Atypical chest pain Disease Resolve d 2015-08 0 00:00: 00 2016-06-10 00:00:00 2016-06-10 07:48:15 [facility] Hypertensi on, malignant Hypertensi on, malignant Disease Resolve d 6 00:00: 00 2016-06-10 00:00:00 2016-06-10 07:48:22 [facility] Hypertensi ve urgency Hypertensi ve urgency Disease Resolve d 12-24 00:00: 00 2016-06-10 00:00:00 2016-06-10 07:48:27 [facility] Type 2 diabetes mellitus Type 2 diabetes mellitus Disease Resolve d 12-24 00:00: 00 2016-06-10 00:00:00 2016-06-10 07:48:49 [facility] Fever Fever Disease Resolve d 12-23 00:00: 00 2016-06-10 00:00:00 2016-06-10 07:48:33 [facility] Chest pain Chest pain Disease Resolve d 08-28 00:00: 00 2016-06-10 00:00:00 2017-09-17 10:03:23 [facility] Shortness of breath Shortness of breath Disease Resolve d 2014-08 00:00: 00 2016-06-10 00:00:00 2016-06-10 07:48:56 [facility] Chest discomfort Chest discomfort Disease Resolve d 2014-08 00:00: 00 2016-06-10 00:00:00 2016-06-10 07:49:00 [facility] Allergies, Adverse Reactions, Alerts Allergy Name Allergy Type Status Severity Reaction(s) Onset Date Inactive Date Treating Clinician Comments Source No Known Allergie s DA Active U 11-30 00:00: 00 [facility] No Known Allergie s DA Active U 11-30 00:00: 00 [facility] No Known Allergie s DA Active U 11-29 00:00: 00 [facility] Isosorbi de Mononitr ate Propensi ty to adverse reaction s Active Other - See comments 04-04 00:00: 00 Severe hypotensi on, likely from severe LVH per Dr. Sanderson. [facility] ISOSORBI DE MONONITR ATE DRUG INGREDI Active Other-Cmnt 04-04 00:00: 00 [facility] No Known Allergie s DA Active U 11-10 00:00: 00 [facility] Social History Social Habit Start Date Stop Date Quantity Comments Source Gender identity [facility] Sexual orientation U [facility] History SDOH Alcohol Frequency [facility] History SDOH Alcohol Std Drinks [facility] History SDOH Alcohol Binge [facility] Alcoholic beverage intake 2024-04-25 00:00:00 2024-04-25 00:00:00 Ex-drinker (finding) [facility] History of Social function 2024-04-13 00:00:00 2024-04-13 00:00:00 [facility] Alcohol intake 2023-11-18 00:00:00 2023-11-18 00:00:00 Ex-drinker (finding) [facility] Exposure to SARS-CoV-2 (event) 2022-11-18 00:00:00 2022-11-28 09:00:00 Not sure [facility] History SDOH Transport Med 2022-05-28 00:00:00 2022-05-28 00:00:00 2 [facility] History SDOH Transport Non-Med 2022-05-28 00:00:00 2022-05-28 00:00:00 2 [facility] History SDOH Financial 2022-05-12 00:00:00 2022-05-12 00:00:00 5 [facility] History SDOH Food Worry 2022-05-12 00:00:00 2022-05-12 00:00:00 1 [facility] History SDOH Food Scarcity 2022-05-12 00:00:00 2022-05-12 00:00:00 1 [facility] Tobacco use and exposure 2022-02-15 00:00:00 2022-02-15 00:00:00 Smokeless tobacco non-user [facility] Alcohol Comment 2021-05-22 00:00:00 2021-05-22 00:00:00 1 cup of whiskey but last dirnk in December [facility] Education 2020-04-30 00:00:00 2020-04-30 00:00:00 13 [facility] Sex assigned at 1965 00:00:00 1965 00:00:00 [facility] Smoking Status Start Date Stop Date Source Never smoked tobacco [facility] Medications Ordered Medication Name Filled Medication Name Start Date Stop Date Current Medication? Ordering Clinician Indication Dosage Frequency Signature (SIG) Comments Components Source ammonium lactate 12 % cream 04-20 00:00: 00 Yes [id number] Apply to area(s) as needed for Itching. [facility] ketoconazol e 2 % cream 04-20 00:00: 00 Yes [id number] Apply to area(s) daily. Apply to feet/toes [facility] lidocaine-p rilocaine 2.5-2.5 % cream 04-20 00:00: 00 Yes [id number] Apply to area(s) 2 (two) times daily. [facility] methocarbam oL 500 mg tablet 04-18 00:00: 00 Yes [id number] 500mg Take 1 tablet by mouth 3 (three) times daily as needed for Pain (scale 7-10) (Knee pain). [facility] lidocaine 5 % ointment 04-18 00:00: 00 04-20 00:00 :00 No [id number] Apply to area(s) 2 (two) times daily. [facility] apixaban 5 mg tablet 04-13 00:00: 00 Yes [id number] 5mg Take 1 tablet by mouth in the morning and 1 tablet in the evening. Indication s: atrial fibrillati on [facility] furosemide 40 mg tablet 04-13 00:00: 00 Yes [id number] 9100 40mg Take 1 tablet by mouth in the morning and 1 tablet at noon and 1 tablet in the evening. [facility] aspirin 81 mg chewable tablet 04-13 00:00: 00 Yes [id number] 9100 81mg Take 1 tablet by mouth in the morning. [facility] Blood-Gluco se Meter Kit 04-13 00:00: 00 Yes [id number] Check sugars 2 times a day. Dx. Code E11.9 Brand per Insurance [facility] blood sugar diagnostic strip 04-13 00:00: 00 Yes [id number] Check blood sugar 2 times a day. E11.9. Brand per insurance. [facility] Lancets Misc 04-13 00:00: 00 Yes [id number] Check sugars 1 times a day. Dx Code E11.9. Brand per insurance. [facility] allopurinoL 300 mg tablet 04-13 00:00: 00 Yes [id number] 300mg Take 1 tablet by mouth every morning. [facility] spironolact one (ALDACTONE) tablet 25 mg 04-05 14:00: 00 Yes 25mg 25 mg, Oral, DAILY, First dose on Thu04/05/24 at 0900, Until Discontinu ed, Routine [facility] lisinopriL (PRINIVIL,Z ESTRIL) tablet 2.5 mg 04-05 14:00: 00 Yes 2.5mg 2.5 mg, Oral, DAILY, First dose on Thu04/05/24 at 0900, Until Discontinu ed, Routine [facility] aspirin chewable tablet 81 mg 04-05 14:00: 00 Yes 81mg 81 mg, Oral, DAILY, First dose on Thu04/05/24 at 0900, Until Discontinu ed, Routine [facility] allopurinoL (ZYLOPRIM) tablet 300 mg 04-05 14:00: 00 Yes 300mg 300 mg, Oral, QAM, First dose on Thu04/05/24 at 0900, Until Discontinu ed, Routine [facility] magnesium sulfate in water 4 gram/50 mL (8 %) IV Piggyback 4 g 04-05 13:00: 00 04-05 15:58 :00 No 4g 4 g, IV Piggyback, at 25 mL/hr Administer over 120 Minutes, ONCE, 1 dose, On Thu04/05/24 at 0800, Routine [facility] atorvastati n (LIPITOR) tablet 40 mg 04-05 02:00: 00 Yes 40mg 40 mg, Oral, QHS, First dose on Thu04/04/24 at 2100, Until Discontinu ed, Routine [facility] busPIRone (BUSPAR) tablet 5 mg 04-05 01:00: 00 Yes 5mg 5 mg, Oral, BID, First dose on Thu04/04/24 at 2000, Until Discontinu ed, Routine [facility] apixaban (ELIQUIS) tablet 5 mg 04-05 01:00: 00 Yes 1358 5mg 5 mg, Oral, BID, First dose on Thu04/04/24 at 1999, Until Discontinu ed, Routine, Indication s: Non-Valvul ar Atrial Fibrillati on [facility] Sliding Scale Insulin - Lispro (HumaLOG) 04-04 22:00: 00 Yes [facility] carvediloL (COREG) tablet 25 mg 04-04 22:00: 00 Yes 25mg 25 mg, Oral, BID MEALS, First dose on Thu04/04/24 at 1700, Until Discontinu ed, Routine [facility] glipiZIDE (GLUCOTROL) tablet 5 mg 04-04 21:30: 00 Yes 5mg 5 mg, Oral, BIDAC, First dose on Thu04/04/24 at 1630, Until Discontinu ed, Routine [facility] aspirin tablet 325 mg 04-04 19:30: 00 04-04 19:59 :00 No 325mg 325 mg, Oral, ONCE, 1 dose, On Thu04/04/24 at 1430, Routine [facility] gabapentin (NEURONTIN) capsule 100 mg 04-04 19:00: 00 Yes 100mg 100 mg, Oral, TID, First dose on Thu04/04/24 at 1400, Until Discontinu ed, Routine [facility] pantoprazol e (PROTONIX) EC tablet 40 mg 04-04 18:45: 00 Yes 40mg 40 mg, Oral, DAILY, First dose on Thu04/04/24 at 1345, Until Discontinu ed, Routine [facility] furosemide (LASIX) injection 40 mg 04-04 18:45: 00 Yes 40mg 40 mg, Slow IV Push, Q12H, First dose on Thu04/04/24 at 1345, Until Discontinu ed, Routine [facility] cloNIDine (CATAPRES) tablet 0.2 mg 04-04 18:45: 00 04-04 18:37 :00 No .2mg 0.2 mg, Oral, ONCE, 1 dose, On Thu04/04/24 at 1345, STAT [facility] dextrose 50 % in water (D50W) injection 25 mL 04-04 18:40: 13 Yes 25mL [facility] ondansetron (ZOFRAN (PF)) injection 4 mg 04-04 18:40: 07 Yes 4mg [facility] HYDROcodone -acetaminop hen (NORCO) 10-325 mg tablet 1 tablet 04-04 18:40: 05 Yes 1{tbl} 1 tablet, Oral, Q6HPRN, Starting on Thu04/04/24 at 1340, Until Discontinu ed, Routine, Pain (scale 7-10) [facility] HYDROcodone -acetaminop hen (NORCO 5) tablet 1 tablet 04-04 18:39: 05 04-06 18:38 :05 Yes 1{tbl} [facility] acetaminoph en (TYLENOL) tablet 650 mg 04-04 18:39: 00 Yes 650mg [facility] acetaminoph en (TYLENOL) tablet 1,000 mg 04-04 18:00: 00 04-04 18:04 :00 No 1000mg 1,000 mg, Oral, ONCE, 1 dose, [facility] Thu04/04/24 at 1300[facility] ([facility]) sublingual tablet 0.4 mg 04-04 18:00: 00 04-04 18:05 :00 No .4mg 0.4 mg, Sublingual , ONCE, 1 dose, On Thu04/04/24 at 1300, [facility] HYDROcodone -acetaminop hen (NORCO) 10-325 mg tablet 1 tablet 03-05 01:30: 00 03-05 00:44 :00 No 1{tbl} 1 tablet, Oral, ONCE, 1 dose, On Thu03/04/24 at 2030, Routine [facility] magnesium oxide (MAGOX) 400 mg (241.3 mg magnesium) tablet 01-11 07:19: 24 01-11 00:00 :00 No 400mg Take 1 tablet by mouth in the morning. [facility] carvediloL 25 mg tablet 01-11 07:09: 01-04 00:00 :00 No 25mg Take 1 tablet by mouth in the morning and 1 tablet in the evening. Take with meals. [facility] empaglifloz in (JARDIANCE) 10 mg 01-11 07:09: 01-04 00:00 :00 No 10mg Take 1 tablet by mouth in the morning. [facility] busPIRone 5 mg tablet 01-11 07:09: 01-04 00:00 :00 No 5mg Take 1 tablet by mouth in the morning and 1 tablet in the evening. [facility] spironolact one (ALDACTONE) 25 mg tablet 01-11 07:09: 34 01-04 00:00 :00 No 25mg Take 1 tablet by mouth in the morning. [facility] spironolact one (ALDACTONE) 25 mg tablet 01-11 00:00: 00 Yes [id number] 9100 25mg Take 1 tablet by mouth in the morning. [facility] atorvastati n 40 mg tablet 01-11 00:00: 00 Yes [id number] 40mg Take 1 tablet by mouth at bedtime. [facility] busPIRone 5 mg tablet 01-11 00:00: 00 Yes [id number] 5mg Take 1 tablet by mouth in the morning and 1 tablet in the evening. [facility] carvediloL 25 mg tablet 01-11 00:00: 00 Yes [id number] 9100 25mg Take 1 tablet by mouth in the morning and 1 tablet in the evening. Take with meals. [facility] empaglifloz in (JARDIANCE) 10 mg tablet 01-11 00:00: 00 Yes [id number] 10mg Take 1 tablet by mouth in the morning. [facility] gabapentin 100 mg capsule 01-11 00:00: 00 Yes [id number] 100mg Take 1 capsule by mouth in the morning and 1 capsule at noon and 1 capsule in the evening. [facility] glipiZIDE 5 mg tablet 01-11 00:00: 00 Yes [id number] 5mg Take 1 tablet by mouth 2 (two) times daily before breakfast and dinner. [facility] diclofenac dodium (VOLTAREN) 1 % gel 01-11 00:00: 00 Yes [id number] 4g Apply 4 g to area(s) 4 (four) times daily. Apply 4 g qid [facility] aspirin 81 mg chewable tablet 01-11 00:00: 00 04-13 00:00 :00 No [id number] 9100 81mg Take 1 tablet by mouth in the morning. [facility] allopurinoL 300 mg tablet 01-11 00:00: 00 04-13 00:00 :00 No [id number] 300mg Take 1 tablet by mouth every morning. [facility] apixaban 5 mg tablet 01-11 00:00: 00 04-13 00:00 :00 No [id number] 5mg Take 1 tablet by mouth in the morning and 1 tablet in the evening. Indication s: atrial fibrillati on [facility] furosemide 40 mg tablet 01-11 00:00: 00 04-13 00:00 :00 No [id number] 9100 40mg Take 1 tablet by mouth in the morning. [facility] lisinopriL 2.5 mg tablet 01-04 15:31: 00 Yes 2.5mg Take 1 tablet by mouth in the morning. [facility] tiZANidine 2 mg tablet 01-04 15:30: 36 01-04 00:00 :00 No 2mg Take 2 mg by mouth every 8 (eight) hours as needed. [facility] colchicine 0.6 mg tablet 01-04 15:30: 36 01-04 00:00 :00 No .6mg Take 1 tablet by mouth in the morning. [facility] magnesium oxide (MAGOX) 400 mg (241.3 mg magnesium) tablet 09-06 20:38: 56 Yes 400mg Take 1 tablet by mouth in the morning. [facility] lisinopriL 2.5 mg tablet 09-06 20:38: 07 Yes 2.5mg Take 1 tablet by mouth in the morning. [facility] carvediloL 25 mg tablet 09-06 20:38: 00 Yes 25mg Take 1 tablet by mouth in the morning and 1 tablet in the evening. Take with meals. [facility] apixaban 5 mg tablet 09-06 00:00: 00 01-04 00:00 :00 No 1358 5mg Take 1 tablet by mouth in the morning and 1 tablet in the evening. Indication s: atrial fibrillati on [facility] spironolact one (ALDACTONE) 25 mg tablet 09-02 13:57: 59 Yes 25mg Take 1 tablet by mouth in the morning. [facility] busPIRone 5 mg tablet 09-02 13:55: 32 Yes 5mg Take 1 tablet by mouth in the morning and 1 tablet in the evening. [facility] colchicine 0.6 mg tablet 09-02 13:55: 32 Yes .6mg Take 1 tablet by mouth in the morning. [facility] empaglifloz in (JARDIANCE) 10 mg 09-02 13:34: 02 Yes 10mg Take 1 tablet by mouth in the morning. [facility] allopurinoL 300 mg tablet 08-03 00:00: 00 01-04 00:00 :00 No 300mg Take 1 tablet by mouth in the morning. [facility] sulfur hexafluorid e microsphr (LUMASON) injection 5 mL 2022-08 21:00: 00 07-30 20:57 :00 No [id number] 5mL 5 mL, Intravenou s, ONCE, 1 dose, On Smiley 07/30/23 at 1500, Routine
seafood team member approving Restricted medication : CORNELIA SANDERSON [facility] spironolact one (ALDACTONE) 25 mg tablet 05-01 13:03: 07 05-01 00:00 :00 No 25mg Take 1 tablet by mouth in the morning. [facility] empaglifloz in (JARDIANCE) 10 mg 05-01 10:59: 23 Yes 10mg Take 1 tablet by mouth in the morning. [facility] carvediloL 25 mg tablet 05-01 10:38: 09 Yes 25mg Take 1 tablet by mouth in the morning and 1 tablet in the evening. Take with meals. [facility] lisinopriL 2.5 mg tablet 05-01 10:38: 09 Yes 2.5mg Take 1 tablet by mouth in the morning. [facility] magnesium oxide (MAGOX) 400 mg (241.3 mg magnesium) tablet 05-01 10:38: 09 Yes 400mg Take 1 tablet by mouth in the morning. [facility] atorvastati n 40 mg tablet 05-01 00:00: 00 01-04 00:00 :00 No [id number] 40mg Take 1 tablet by mouth at bedtime. [facility] HYDROcodone -acetaminop hen (NORCO 5) 5-325 mg tablet 1 tablet 03-28 04:00: 00 03-28 03:48 :00 No 1{tbl} 1 tablet, Oral, ONCE, 1 dose, On Thu03/27/23 at 2300, Routine [facility] hydrocortis one 25 mg suppository 03-28 00:00: 00 01-04 00:00 :00 No [id number] 25mg Insert 1 Suppositor y into rectum 2 (two) times daily as needed for Rectal itching/pa in for up to 15 doses. [facility] furosemide 40 mg tablet 03-25 00:00: 00 01-11 00:00 :00 No 40mg Take 1 tablet by mouth in the morning and 1 tablet in the evening. [facility] furosemide (LASIX) 20 mg tablet 10-27 11:08: 48 10-27 00:00 :00 No 20mg Take 20 mg by mouth in the morning. [facility] dapaglifloz in (FARXIGA) 10 mg tablet 10-27 11:08: 45 10-27 00:00 :00 No 10mg Take 10 mg by mouth daily. [facility] empaglifloz in (JARDIANCE) 10 mg 10-27 11:05: 13 Yes 10mg Take 1 tablet by mouth in the morning. [facility] carvediloL 25 mg tablet 10-27 10:49: 14 Yes 25mg Take 25 mg by mouth in the morning and 25 mg in the evening. Take with meals. [facility] magnesium oxide (MAGOX) 400 mg (241.3 mg magnesium) tablet 10-27 10:49: 10 Yes 400mg Take 400 mg by mouth in the morning. [facility] spironolact one (ALDACTONE) 25 mg tablet 10-27 10:49: 07 Yes 25mg Take 25 mg by mouth in the morning. [facility] lisinopriL 2.5 mg tablet 10-27 10:49: 06 Yes 2.5mg Take 2.5 mg by mouth in the morning. [facility] dapaglifloz in (FARXIGA) 10 mg tablet 08-21 15:48: 43 Yes 10mg Take 10 mg by mouth daily. [facility] furosemide (LASIX) 20 mg tablet 08-21 15:48: 43 Yes 20mg Take 20 mg by mouth in the morning. [facility] lisinopriL 2.5 mg tablet 08-21 15:48: 43 Yes 2.5mg Take 2.5 mg by mouth in the morning. [facility] magnesium oxide (MAGOX) 400 mg (241.3 mg magnesium) tablet 08-21 15:48: 43 Yes 400mg Take 400 mg by mouth in the morning. [facility] spironolact one (ALDACTONE) 25 mg tablet 08-21 15:48: 43 Yes 25mg Take 25 mg by mouth in the morning. [facility] tiZANidine 2 mg tablet 08-21 09:52: 34 Yes 2mg Take 2 mg by mouth every 8 (eight) hours as needed. [facility] carvediloL 25 mg tablet 08-21 09:52: 34 Yes 25mg Take 25 mg by mouth in the morning and 25 mg in the evening. Take with meals. [facility] carvediloL (COREG) tablet 25 mg 2021-08 00:00: 00 06-09 23:35 :00 No 25mg 25 mg, Oral, ONCE, 1 dose, On 06/09/22 at 1800, Routine [facility] tiZANidine 2 mg tablet 2021-08 18:34: 04 Yes 2mg Take 2 mg by mouth every 8 (eight) hours as needed. [facility] carvediloL 25 mg tablet 2021-08 18:34: 04 Yes 25mg Take 25 mg by mouth in the morning and 25 mg in the evening. Take with meals. [facility] apixaban 2.5 mg tablet 2021-08 00:00: 00 09-06 00:00 :00 No 1358 2.5mg Take 1 tablet by mouth in the morning and 1 tablet in the evening. Indication s: atrial fibrillati on [facility] NaCl 0.9% (NS) IV infusion 2021-08 04:45: 00 Yes at 75 mL/hr, IV Infusion, CONTINUOUS , Starting on 06/07/22 at 2345, Until Discontinu ed, Routine [facility] apixaban (ELIQUIS) tablet 2.5 mg 2021-08 01:00: 00 Yes 1358 2.5mg 2.5 mg, Oral, BID, First dose (after last modificati on) on 06/07/22 at 2000, Until Discontinu ed, Routine
Indicatio ns: Non-Valvul ar Atrial Fibrillati on [facility] Sliding Scale Insulin - Lispro (HumaLOG) + Fsbg Testing 2021-08 17:00: 00 Yes Subcutaneo us, TID MEALS+HS, First dose on 06/07/22 at 1200, Until Discontinu ed, Routine [facility] NaCl 0.9% (NS) bolus infusion 1,000 mL 2021-08 15:30: 00 06-07 23:27 :00 No 1000mL at 75 mL/hr, 1,000 mL, IV Piggyback, ONCE, 1 dose, On 06/07/22 at 1030, STAT [facility] NaCl 0.9% (NS) bolus infusion 500 mL 2021-08 14:00: 00 06-07 13:26 :44 No 500mL at 999 mL/hr, 500 mL, IV Piggyback, ONCE, 1 dose, On Thu06/07/22 at 0900, STAT [facility] glucagon (GLUCAGEN DIAGNOSTIC KIT) injection 1 mg 2021-08 13:02: 13 Yes 1mg 1 mg, Intramuscu lar, PRN, Starting on Thu06/07/22 at 0802, Until Discontinu ed, MJ, Blood Glucose < or = 70 mg/dL and patient is unable to swallow or has mental changes. [facility] dextrose 50 % in water (D50W) injection 25 mL 2021-08 13:02: 13 Yes 25mL 25 mL, Slow IV Push, PRN, Starting on 06/07/22 at 0802, Until Discontinu ed, MJ, Blood Glucose < or = 70 mg/dL and patient is unable to swallow or has mental status changes. [facility] proMETHazin e (PHENERGAN) 25 mg in NaCl 0.9% (NS) 50 mL IV piggyback 2021-08 15:17: 15 Yes 25mg 25 mg, IV Piggyback, Q4HPRN, Starting on Thu06/06/22 at 1017, Until Discontinu ed, Routine, Nausea and Vomiting (N/V), N/V unresponsi ve to Ondansetro n [facility] omeprazole (PRILOSEC) capsule 40 mg 2021-08 14:00: 00 Yes 40mg 40 mg, Oral, DAILY, First dose on Thu06/06/22 at 0900, Until Discontinu ed [facility] aspirin EC tablet 81 mg 2021-08 14:00: 00 Yes 81mg 81 mg, Oral, DAILY, First dose on Thu06/06/22 at 0900, Until Discontinu ed, Routine [facility] bumetanide (BUMEX) tablet 4 mg 2021-08 14:00: 00 06-07 05:10 :36 No 4mg 4 mg, Oral, DAILY, First dose on Thu06/06/22 at 0900, Until Discontinu ed, Routine [facility] spironolact one (ALDACTONE) tablet 25 mg 2021-08 14:00: 00 06-07 05:10 :36 No 25mg 25 mg, Oral, DAILY, First dose on Thu06/06/22 at 0900, Until Discontinu ed, Routine [facility] lisinopriL (PRINIVIL,Z ESTRIL) tablet 2.5 mg 2021-08 14:00: 00 06-06 21:33 :34 No 2.5mg 2.5 mg, Oral, DAILY, First dose on Thu06/06/22 at 0900, Until Discontinu ed, Routine [facility] carvediloL (COREG) tablet 25 mg 2021-08 13:00: 00 06-07 05:10 :36 No 25mg 25 mg, Oral, BID MEALS, First dose on Thu06/06/22 at 0800, Until Discontinu ed, Routine [facility] glipiZIDE (GLUCOTROL) tablet 2.5 mg 2021-08 12:30: 00 06-07 13:02 :42 No 2.5mg 2.5 mg, Oral, BIDAC, First dose (after last modificati on) on Thu06/06/22 at 0730, Until Discontinu ed, Routine [facility] [facility] NaCl 0.9% (NS) IV infusion 500 mL 2021-08 04:30: 00 06-06 12:34 :35 No 500mL at 20 mL/hr, IV Infusion, CONTINUOUS , Starting on Thu06/05/22 at 2330, Until Thu06/06/22 at 0734, Routine [facility] atorvastati n (LIPITOR) tablet 80 mg 2021-08 02:00: 00 Yes 80mg 80 mg, Oral, QHS, First dose on Thu06/05/22 at 2100, Until Discontinu ed, Routine [facility] ondansetron (ZOFRAN (PF)) injection 4 mg 2021-08 01:37: 42 Yes 4mg 4 mg, Slow IV Push, Q6HPRN, Nausea and Vomiting (N/V), Starting on Thu06/05/22 at 2036
Do ses of ondansetro n 16 mg and above need to be administer ed via IV piggyback. For Dose >=24mg ECG monitoring is advisable.
[facility] bumetanide (BUMEX) tablet 3 mg 2021-08 01:00: 00 06-07 05:10 :35 No 3mg 3 mg, Oral, QPM AT 1999, First dose on Thu06/05/22 at 1999, Until Discontinu ed, Routine [facility] apixaban (ELIQUIS) tablet 5 mg 2021-08 01:00: 00 06-07 14:38 :03 No 1358 5mg 5 mg, Oral, BID, First dose on Thu06/05/22 at 1999, Until Discontinu ed, Routine
Indicatio ns: Non-Valvul ar Atrial Fibrillati on [facility] acetaminoph en (TYLENOL) tablet 650 mg 2021-08 23:47: 33 Yes 650mg 650 mg, Oral, Q6HPRN, Starting on Thu06/05/22 at 1847, Until Discontinu ed, Routine, Pain (scale 1-3) [facility] tiZANidine 2 mg tablet 2021-08 19:33: 24 Yes 2mg Take 2 mg by mouth every 8 (eight) hours as needed. [facility] carvediloL 25 mg tablet 2021-08 19:33: 24 Yes 25mg Take 25 mg by mouth in the morning and 25 mg in the evening. Take with meals. [facility] HYDROcodone -acetaminop hen (NORCO 5) 5-325 mg tablet 1 tablet 2021-08 13:45: 00 06-04 13:00 :00 No 1{tbl} 1 tablet, Oral, ONCE, 1 dose, On Thu06/04/22 at 0845, Routine [facility] tiZANidine 2 mg tablet 2021-08 11:37: 59 Yes 2mg Take 2 mg by mouth every 8 (eight) hours as needed. [facility] carvediloL 25 mg tablet 2021-08 11:37: 59 Yes 25mg Take 25 mg by mouth in the morning and 25 mg in the evening. Take with meals. [facility] lisinopriL 2.5 mg tablet 2021-08 00:00: 00 07-04 05:59 :00 No [id number] 2.5mg Take 1 tablet by mouth in the morning for 30 days. [facility] bumetanide (BUMEX) tablet 4 mg 2021-08 16:00: 00 Yes 4mg 4 mg, Oral, Q6H ABX, First dose (after last modificati on) on Thu06/02/22 at 1100, Until Discontinu ed, Routine [facility] metOLazone (ZAROXOLYN) tablet 5 mg 2021-08 14:00: 00 Yes 5mg 5 mg, Oral, QAM+PM, First dose on Thu06/02/22 at 0900, Until Discontinu ed, Routine [facility] lisinopriL (PRINIVIL,Z ESTRIL) tablet 2.5 mg 2021-08 14:00: 00 Yes 2.5mg 2.5 mg, Oral, DAILY, First dose on Thu06/02/22 at 0900, Until Discontinu ed, Routine [facility] omeprazole (PRILOSEC) capsule 40 mg 2021-08 14:00: 00 Yes 40mg 40 mg, Oral, DAILY, First dose on Thu06/02/22 at 0900, Until Discontinu ed [facility] magnesium oxide (MAG-OX 400) tablet 400 mg 2021-08 14:00: 00 Yes 400mg 400 mg, Oral, DAILY, First dose on Thu06/02/22 at 0900, Until Discontinu ed [facility] docusate (COLACE) capsule 100 mg 2021-08 14:00: 00 Yes 100mg 100 mg, Oral, DAILY, First dose on Thu06/02/22 at 0900, Until Discontinu ed [facility] aspirin EC tablet 81 mg 2021-08 14:00: 00 Yes 81mg 81 mg, Oral, DAILY, First dose on Thu06/02/22 at 0900, Until Discontinu ed, Routine [facility] Sliding Scale Insulin - Lispro (HumaLOG) + Fsbg Testing 2021-08 13:00: 00 Yes Subcutaneo us, TID MEALS, First dose (after last modificati on) on Thu06/02/22 at 0800, Until Discontinu ed, Routine [facility] bumetanide (BUMEX) tablet 4 mg 2021-08 08:30: 00 06-02 13:29 :27 No 4mg 4 mg, Oral, Q6HA, First dose (after last modificati on) on Thu06/02/22 at 0330, Until Discontinu ed, Routine [facility] spironolact one (ALDACTONE) tablet 25 mg 2021-08 06:00: 00 Yes 25mg 25 mg, Oral, BID, First dose (after last modificati on) on Thu06/02/22 at 0100, Until Discontinu ed, Routine [facility] ipratropium -albuteroL (DUONEB) 0.5 mg-3 mg(2.5 mg base)/3 mL nebulizer solution 3 mL 2021-08 05:40: 49 Yes 3mL 3 mL, Inhalation , QIDPRN, Starting on Thu06/02/22 at 0040, Until Discontinu ed, Routine, Wheezing, Bronchospa sm, Shortness of Breath [facility] zolpidem (AMBIEN) tablet 5 mg 2021-08 04:02: 27 Yes 5mg 5 mg, Oral, QHSPRN, Starting on Thu06/01/22 at 2302, Until Discontinu ed, Routine, Insomnia [facility] morpHINE (2 mg/mL) injection 2 mg 2021-08 04:02: 22 Yes 2mg 2 mg, Slow IV Push, Q4HPRN, Starting on Thu06/01/22 at 2302, Until Discontinu ed, Routine, Pain (scale 7-10) [facility] atorvastati n (LIPITOR) tablet 80 mg 2021-08 02:00: 00 Yes 80mg 80 mg, Oral, QHS, First dose on 06/01/22 at 2100, Until Discontinu ed, [facility] ap[facility] (ELI[facility]IS[facility] 5 mg 2021-08 01:00: 00 Yes 1358 5mg 5 mg, Oral, BID, First dose on 06/01/22 at 2000, Until Discontinu ed, Routine
Indicatio ns: Non-Valvul ar Atrial Fibrillati on [facility] carvediloL (COREG) tablet 25 mg 2021-08 22:00: 00 Yes 25mg 25 mg, Oral, BID MEALS, First dose on 06/01/22 at 1700, Until Discontinu ed, Routine [facility] bumetanide (BUMEX) tablet 3 mg 2021-08 22:00: 00 06-02 05:50 :58 No 3mg 3 mg, Oral, QPM, First dose on 06/01/22 at 1700, Until Discontinu ed, Routine [facility] glipiZIDE (GLUCOTROL) tablet 5 mg 2021-08 21:30: 00 06-02 05:50 :58 No 5mg 5 mg, Oral, BIDAC, First dose on 06/01/22 at 1630, Until Discontinu ed, Routine [facility] glucagon (GLUCAGEN DIAGNOSTIC KIT) injection 1 mg 2021-08 21:11: 01 Yes 1mg 1 mg, Intramuscu lar, PRN, Starting on 06/01/22 at 1611, Until Discontinu ed, MJ, Blood Glucose < or = 70 mg/dL and patient is unable to swallow or has mental changes. [facility] dextrose 50 % in water (D50W) injection 25 mL 2021-08 21:11: 01 Yes 25mL 25 mL, Slow IV Push, PRN, Starting on 06/01/22 at 1611, Until Discontinu ed, MJ, Blood Glucose < or = 70 mg/dL and patient is unable to swallow or has mental status changes. [facility] ondansetron (ZOFRAN (PF)) injection 4 mg 2021-08 20:32: 46 Yes 4mg 4 mg, Slow IV Push, Q6HPRN, Starting on 06/01/22 at 1532, Until Discontinu ed, Routine, Nausea and Vomiting (N/V) [facility] acetaminoph en (TYLENOL) tablet 650 mg 2021-08 20:30: 48 Yes 650mg 650 mg, Oral, Q6HPRN, Starting on 06/01/22 at 1530, Until Discontinu ed, Routine, Pain (scale 1-3) [facility] furosemide (LASIX) injection 40 mg 2021-08 18:45: 00 06-01 18:53 :00 No 40mg 40 mg, IV Push, ONCE, 1 dose, On Thu06/01/22 at 1345, MJ [facility] carvediloL 25 mg tablet 2021-08 16:31: 23 Yes 25mg Take 25 mg by mouth in the morning and 25 mg in the evening. Take with meals. [facility] tiZANidine 2 mg tablet 2021-08 15:34: 08 Yes 2mg Take 2 mg by mouth every 8 (eight) hours as needed. [facility] tiZANidine 2 mg tablet 2021-08 13:38: 01 Yes 2mg Take 2 mg by mouth every 8 (eight) hours as needed. [facility] carvediloL 25 mg tablet 2021-08 13:38: 01 Yes 25mg Take 25 mg by mouth in the morning and 25 mg in the evening. Take with meals. [facility] tiZANidine 2 mg tablet 2021-08 06:31: 05 Yes 2mg Take 2 mg by mouth every 8 (eight) hours as needed. [facility] carvediloL 25 mg tablet 2021-08 06:31: 05 Yes 25mg Take 25 mg by mouth in the morning and 25 mg in the evening. Take with meals. [facility] iopamidol (ISOVUE 370-500 mL) injection 74 mL 2021-08 18:45: 00 05-22 18:45 :00 No [id number] 74mL 74 mL, Intravenou s, ONCE, 1 dose, On Thu05/22/22 at 1345, Routine [facility] pantoprazol e (PROTONIX) 80 mg in NaCl 0.9% (NS) 20 mL syringe 2021-08 17:15: 00 05-22 17:17 :00 No 80mg 80 mg, IV Push, ONCE, 1 dose, On Thu05/22/22 at 1215, Administer over 2 Minutes, 20 mL [facility] amoxicillin -clavulanat e 875-125 mg per tablet 2021-08 00:00: 00 06-03 00:00 :00 No [id number] 1{tbl} Take 1 tablet by mouth every 12 (twelve) hours for 10 days. [facility] hydralAZINE (APRESOLINE ) injection 20 mg 2021-0818 18:30: 00 05-20 17:45 :00 No 20mg 20 mg, Slow IV Push, ONCE, 1 dose, On Thu05/20/22 at 1330, STAT [facility] cloNIDine (CATAPRES) tablet 0.2 mg 2021-0818 17:45: 00 05-20 17:45 :00 No .2mg 0.2 mg, Oral, ONCE, 1 dose, On Thu05/20/22 at 1245, STAT [facility] dapaglifloz in 10 mg tablet 2021-08 014 00:00: 00 06-16 05:59 :00 No [id number] 10mg Take 1 tablet by mouth in the morning for 30 days. [facility] predniSONE 10 mg tablet 2021-08 0-14 00:00: 00 05-26 04:59 :00 No [id number] Take 2 tablets by mouth daily for 3 days, THEN 1 tablet daily for 3 days, THEN 0.5 tablets daily for 3 days. [facility] sacubitriL- valsartan (ENTRESTO) 24-26 mg tablet 2021-08 00:00: 00 05-15 00:00 :00 No [id number] 1{tbl} Take 1 tablet by mouth in the morning and 1 tablet in the evening. Do all this for 30 days. [facility] bumetanide (BUMEX) tablet 3 mg 2021-08 22:00: 00 Yes 3mg 3 mg, Oral, QPM, First dose on Thu05/15/22 at 1700, Until Discontinu ed, Routine [facility] tiZANidine 2 mg tablet 2021-08 19:16: 30 Yes 2mg Take 2 mg by mouth every 8 (eight) hours as needed. [facility] carvediloL 25 mg tablet 2021-08 19:16: 30 Yes 25mg Take 25 mg by mouth in the morning and 25 mg in the evening. Take with meals. [facility] spironolact one (ALDACTONE) tablet 25 mg 2021-08 14:00: 00 Yes 25mg 25 mg, Oral, DAILY, First dose on Thu05/15/22 at 0900, Until Discontinu ed, Routine [facility] apixaban (ELIQUIS) tablet 5 mg 2021-08 01:00: 00 Yes 5mg 5 mg, Oral, BID, First dose on Thu05/14/22 at 2000, Until Discontinu ed, Routine
Indicatio ns: Non-Valvul ar Atrial Fibrillati on [facility] spironolact one (ALDACTONE) 25 mg tablet 2021-08 00:00: 00 06-15 05:59 :00 No [id number] 25mg Take 1 tablet by mouth in the morning. [facility] iron dextran (INFED) 1,000 mg in NaCl 0.9% (NS) 500 mL IV infusion 2021-08 14:45: 00 05-14 18:25 :00 No 1000mg 1,000 mg, IV Infusion, ONCE, 1 dose, On Thu05/14/22 at 0945, Administer over 1.5 Hours, 500 mL [facility] iron dextran (INFED) 25 mg in NaCl 0.9% (NS) 100 mL IV piggyback 2021-08 14:45: 00 05-14 16:55 :00 No 25mg 25 mg, IV Piggyback, ONCE, 1 dose, On Thu05/14/22 at 0945, Administer over 15 Minutes, 100 mL [facility] predniSONE (DELTASONE) tablet 30 mg 2021-08 01:00: 00 Yes 30mg 30 mg, Oral, DAILY, First dose on Thu05/13/22 at 2000, Until Discontinu ed, Routine [facility] acetaminoph en (TYLENOL) tablet 325 mg 2021-08 22:23: 27 Yes 325mg 325 mg, Oral, Q6HPRN, Starting on Thu05/13/22 at 1723, Until Discontinu ed, Routine, Pain (scale 1-3) [facility] acetaminoph en-codeine (TYLENOL #3) 300-30 mg tablet 1 tablet 2021-08 22:21: 47 Yes 1{tbl} 1 tablet, Oral, Q6HPRN, Starting on Thu05/13/22 at 1721, Until Discontinu ed, Routine, Pain (scale 7-10) [facility] sulfur hexafluorid e microsphr (LUMASON) injection 5 mL 2021-08 17:15: 00 05-13 16:35 :00 No [id number] 5mL 5 mL, Intravenou s, ONCE, 1 dose, On Thu05/13/22 at 1215, Routine
seafood team member approving Restricted medication : BETY RHODES [facility] bumetanide (BUMEX) tablet 3 mg 2021-08 22:00: 00 05-14 12:16 :52 No 3mg 3 mg, Oral, QPM, First dose on Thu05/12/22 at 1700, Until Discontinu ed, Routine [facility] nitroglycer in (NITROSTAT) sublingual tablet 0.4 mg 2021-08 20:54: 18 Yes .4mg 0.4 mg, Sublingual , Q5MIN PRN, Starting on Thu05/12/22 at 1554, Until Discontinu ed, Routine, Chest pain [facility] nitroglycer in (NITROSTAT) sublingual tablet 0.4 mg 2021-08 18:16: 00 05-12 18:33 :00 No .4mg 0.4 mg, Sublingual , ONCE, 1 dose, On Thu05/12/22 at 1330, Routine [facility] trimethoben zamide (TIGAN) injection 200 mg 2021-08 17:19: 25 Yes 200mg 200 mg, Intramuscu lar, Q6HPRN, Starting on Thu05/12/22 at 1219, Until Discontinu ed, Routine, Nausea and Vomiting (N/V) [facility] bumetanide (BUMEX) tablet 4 mg 2021-08 14:00: 00 05-14 12:16 :52 No 4mg 4 mg, Oral, QAM, First dose on Thu05/12/22 at 0900, Until Discontinu ed, Routine [facility] magnesium sulfate in water 4 gram/50 mL (8 %) IV Piggyback 4 g 2021-08 14:00: 00 05-12 16:28 :00 No 4g 4 g, IV Piggyback, at 25 mL/hr Administer over 120 Minutes, ONCE, 1 dose, On Thu05/12/22 at 0900, Routine [facility] alum-mag hydroxide-s imeth (MAALOX PLUS / MAG-AL PLUS) 200-200-20 mg/5 mL suspension 30 mL 2021-08 03:00: 00 05-12 02:17 :00 No 30mL 30 mL, Oral, ONCE, 1 dose, On Thu05/11/22 at 2200, Routine [facility] lidocaine (LIDODERM) 5 % (700 mg/patch) patch 1 Patch 2021-08 03:00: 00 05-12 14:17 :00 No 1{patch } 1 Patch, Topical, Administer over 12 Hours, ONCE, 1 dose, On 05/11/22 at 2200, Routine [facility] atorvastati n (LIPITOR) tablet 80 mg 2021-08 02:00: 00 Yes 80mg 80 mg, Oral, QHS, First dose on 05/11/22 at 2100, Until Discontinu ed, Routine [facility] carvediloL (COREG) tablet 25 mg 2021-08 22:00: 00 Yes 25mg 25 mg, Oral, BID MEALS, First dose (after last modificati on) on 05/11/22 at 1700, Until Discontinu ed, Routine [facility] Sliding Scale Insulin - Lispro (HumaLOG) + Fsbg Testing 2021-08 22:00: 00 Yes Subcutaneo us, TID MEALS+HS, First dose on 05/11/22 at 1700, Until Discontinu ed, Routine [facility] furosemide (LASIX) injection 40 mg 2021-08 22:00: 00 05-12 13:32 :13 No 40mg 40 mg, Slow IV Push, QAM+PM, First dose on 05/11/22 at 1700, Until Discontinu ed, Routine [facility] hydrALAZINE (APRESOLINE ) tablet 25 mg 2021-08 20:00: 00 05-12 11:16 :54 No 25mg 25 mg, Oral, Q6H, First dose on Thu05/11/22 at 1500, Until Discontinu ed, Routine [facility] gabapentin (NEURONTIN) capsule 100 mg 2021-08 19:00: 00 Yes 100mg 100 mg, Oral, TID, First dose on 05/11/22 at 1400, Until Discontinu ed, Routine [facility] aspirin EC tablet 81 mg 2021-08 17:45: 00 Yes 81mg 81 mg, Oral, DAILY, First dose (after last modificati on) on 05/11/22 at 1245, Until Discontinu ed, Routine [facility] omeprazole (PRILOSEC) capsule 40 mg 2021-08 17:45: 00 Yes 40mg 40 mg, Oral, DAILY, First dose (after last modificati on) on [place] 05/11/22 at 1245, Until Discontinu ed, Routine [facility] lisinopriL (PRINIVIL,Z ESTRIL) tablet 2.5 mg 2021-08 17:45: 00 05-13 16:39 :15 No 2.5mg 2.5 mg, Oral, DAILY, First dose (after last modificati on) on [place] 05/11/22 at 1245, Until Discontinu ed, Routine [facility] spironolact one (ALDACTONE) tablet 50 mg 2021-08 17:45: 00 05-13 16:39 :15 No 50mg 50 mg, Oral, DAILY, First dose (after last modificati on) on [place] 05/11/22 at 1245, Until Discontinu ed, Routine [facility] dextrose 10% (D10W) bolus infusion 250 mL 2021-08 17:11: 26 Yes 250mL 250 mL, IV Infusion, PRN - SEE INSTRUCTIO NS, Administer over 60 Minutes, Other, If blood glucose is < or = 70 mg/dL and patient is unable to swallow or has mental status changes, Starting on [place] 05/11/22 at 1211
If blood glucose is [...] blood glucose is < 80 mg/dL, repeat.
[facility] glucagon (GLUCAGEN DIAGNOSTIC KIT) injection 1 mg 2021-08 17:11: 26 Yes 1mg 1 mg, Intramuscu lar, PRN, Starting on [place] 05/11/22 at 1211, Until Discontinu ed, MJ, Blood Glucose < or = 70 mg/dL and patient is unable to swallow or has mental changes. [facility] heparin 1000 unit/mL injection Soln 5,000 Units 2021-08 16:30: 00 05-11 18:11 :00 No 5000U 5,000 Units, IV Push, ONCE, 1 dose, On 05/11/22 at 1130, Routine [facility] heparin (1,000 unit/mL, 10 mL vial) 2021-08 16:01: 34 05-14 14:00 :45 No 3000U FOR REBOLUSING , Starting on 05/11/22 at 1101, Until Thu05/14/22 at 0900, Routine
Dosing based on aPTT testing parameters (refer to continuous heparin drip order)
[facility] heparin 25,000 Units/250 mL (Premixed Bag) in 0.45 % NS 2021-08 16:01: 34 05-14 14:00 :45 No 1300U/h 1,300 Units/hr (13 mL/hr), IV Infusion, TITRATE, Parameters in Admin. Instr., Starting on 05/11/22 [...] INITIAL INFUSION RATE.&nbsp ; _ &nb sp;FOR [facility], [facility], AND [facility] ONLY &nbs p; - aPTT < [...] Q12H once therapeuti c levels are reached.&n bsp;&n bsp; ____ &nbs p; FO [facility] ONLY - aPTT < 40: & nbsp;Bolus 5000 units, increase rate 300 units/hr&n bsp; - aPTT 40-49:&nbs p; González callie 3000 units, increase rate 200 units/hr&n bsp; - aPTT 50-59:&nbs p; In crease rate 100 units/hr&a mp;nbsp; - aPTT 60-85:&nbs p; NO CHANGE&nbs p; - aPTT 86-95:&nbs p; De crease rate 100 units/hr&n bsp; - aPTT 96-120:&nb sp; H old 30 minutes, decrease rate 150 units/hr&n bsp; - aPTT > 120: Hold 60 minutes, decrease rate 200 units/hr&n bsp; Check aPTT 6 hours after initiation , then Q6H after every change, aPTT Q12H once therapeuti c levels are reached.<b r> [facility] acetaminoph en (TYLENOL) tablet 650 mg 2021-08 15:27: 54 05-13 22:23 :42 No 650mg 650 mg, Oral, Q6HPRN, Starting on Thu05/11/22 at 1027, Until Thu05/13/22 at 1723, Routine, Pain (scale 1-3) [facility] ondansetron (ZOFRAN (PF)) injection 4 mg 2021-08 13:30: 00 05-11 13:23 :00 No 4mg 4 mg, Slow IV Push, ONCE, 1 dose, On Thu05/11/22 at 0830, MJ [facility] tiZANidine 2 mg tablet 2021-08 12:16: 40 Yes 2mg Take 2 mg by mouth every 8 (eight) hours as needed. [facility] carvediloL 25 mg tablet 2021-08 12:16: 40 Yes 25mg Take 25 mg by mouth in the morning and 25 mg in the evening. Take with meals. [facility] furosemide (LASIX) injection 80 mg 2021-08 09:30: 00 05-11 09:32 :00 No 80mg 80 mg, IV Push, ONCE, 1 dose, On Thu05/11/22 at 0430, MJ [facility] morpHINE (4 mg/mL) injection 4 mg 2021-08 09:15: 00 05-11 09:33 :00 No 4mg 4 mg, Slow IV Push, ONCE, 1 dose, On Thu05/11/22 at 0415, STAT [facility] cloNIDine (CATAPRES) tablet 0.1 mg 2021-08 08:15: 00 05-11 08:16 :00 No .1mg 0.1 mg, Oral, ONCE, 1 dose, On Thu05/11/22 at 0315, STAT [facility] acetaminoph en (TYLENOL) tablet 1,000 mg 2021-08 009 08:12: 17 05-11 08:16 :00 No 1000mg 1,000 mg, Oral, PRN, 1 dose, Starting on Thu05/11/22 at 0312, Until Thu05/11/22 at 0316, MJ, Pain (scale 4-6), headache [facility] benzonatate 100 mg capsule 2021-08 0-07 00:00: 00 06-03 00:00 :00 No [id number] 100mg Take 1 capsule by mouth 3 (three) times daily as needed for Cough. [facility] glipiZIDE 5 mg tablet 2021-08 005 00:00: 00 01-04 00:00 :00 No 5mg Take 5 mg in the morning and 5 mg in the evening. [facility] lisinopriL (PRINIVIL,Z ESTRIL) tablet 2.5 mg 2021-08 0 14:00: 00 Yes 2.5mg 2.5 mg, Oral, DAILY, First dose on Thu05/06/22 at 0900, Until Discontinu ed, Routine [facility] spironolact one (ALDACTONE) tablet 50 mg 2021-08 0 14:00: 00 Yes 50mg 50 mg, Oral, DAILY, First dose on Thu05/06/22 at 0900, Until Discontinu ed, Routine [facility] omeprazole (PRILOSEC) capsule 40 mg 2021-08 0 14:00: 00 Yes 40mg 40 mg, Oral, DAILY, First dose on Thu05/06/22 at 0900, Until Discontinu ed [facility] aspirin EC tablet 81 mg 2021-08 0 14:00: 00 Yes 81mg 81 mg, Oral, DAILY, First dose on Thu05/06/22 at 0900, Until Discontinu ed, Routine [facility] KCL (KLOR-CON M20) tablet 40 mEq 2021-08 0 13:30: 00 05-06 13:11 :00 No 40meq 40 mEq, Oral, ONCE, 1 dose, On Thu05/06/22 at 0830, [facility] carvediloL (COREG[facility] tablet 25 mg 2021-08 13:00: 00 Yes 25mg 25 mg, Oral, BID MEALS, First dose on Thu05/06/22 at 0800, Until Discontinu ed, Routine [facility] tiZANidine 2 mg tablet 2021-08 11:27: 10 Yes 2mg Take 2 mg by mouth every 8 (eight) hours as needed. [facility] carvediloL 25 mg tablet 2021-08 11:27: 10 Yes 25mg Take 25 mg by mouth in the morning and 25 mg in the evening. Take with meals. [facility] HYDROcodone -acetaminop hen (NORCO) 10-325 mg tablet 1 tablet 2021-08 10:16: 48 Yes 1{tbl} 1 tablet, Oral, Q6HPRN, Starting on Thu05/06/22 at 0516, Until Discontinu ed, Routine, Pain (scale 7-10) [facility] hydralAZINE (APRESOLINE ) injection 10 mg 2021-08 10:15: 52 Yes 10mg 10 mg, Slow IV Push, Q4HPRN, Starting on Thu05/06/22 at 0515, Until Discontinu ed, STAT, DBP=>100; SBP=>160, DBP=>100; SBP=>180 [facility] furosemide (LASIX) injection 40 mg 2021-08 03:00: 00 05-06 12:27 :38 No 40mg 40 mg, Slow IV Push, Q8H, First dose on Thu05/05/22 at 2200, Until Discontinu ed, Routine [facility] atorvast[facility] n (LIPITOR) tablet 80 mg 2021-08 02:00: 00 Yes 80mg 80 mg, Oral, QHS, First dose on Thu05/05/22 at 2100, Until Discontinu ed, Routine [facility] hydral[facility]INE (APRESOLINE ) injection 20 mg 2021-08 01:15: 00 05-06 00:26 :00 No 20mg 20 mg, Slow IV Push, ONCE, 1 dose, On Thu05/05/22 at 2015, STAT [facility] apixaban (ELIQUIS) tablet 5 mg 2021-08 0 01:00: 00 Yes 1358 5mg 5 mg, Oral, BID, First dose on Thu05/05/22 at 2000, Until Discontinu ed, Routine
Indicatio ns: Non-Valvul ar Atrial Fibrillati on [facility] HYDROcodone -acetaminop hen (NORCO 5) 5-325 mg tablet 1 tablet 2021-08 00:15: 49 05-08 00:14 :49 No 1{tbl} 1 tablet, Oral, Q6HPRN, Starting on Thu05/05/22 at 1915, Until Thu05/07/22 at 1914, Routine, Pain (scale 4-6) [facility] acetaminoph en (TYLENOL) tablet 650 mg 2021-08 00:15: 44 Yes 650mg 650 mg, Oral, Q6HPRN, Starting on Thu05/05/22 at 1915, Until Discontinu ed, Routine, Pain (scale 1-3) [facility] lisinopriL 2.5 mg tablet 2021-08 00:00: 00 06-06 04:59 :00 No [id number] 2.5mg Take 1 tablet by mouth in the morning. [facility] morpHINE (4 mg/mL) injection 4 mg 2021-08 0 23:30: 00 05-05 23:31 :00 No 4mg 4 mg, Slow IV Push, ONCE, 1 dose, On Thu05/05/22 at 1830, Routine [facility] hydrALAZINE (APRESOLINE ) tablet 25 mg 2021-08 0 22:45: 00 05-05 22:38 :00 No 25mg 25 mg, Oral, ONCE NOW, 1 dose, On Thu05/05/22 at 1745, MJ [facility] carvediloL 25 mg tablet 2021-08 20:01: 21 Yes 25mg Take 25 mg by mouth in the morning and 25 mg in the evening. Take with meals. [facility] tiZANidine 2 mg tablet 2021-08 19:45: 40 Yes 2mg Take 2 mg by mouth every 8 (eight) hours as needed. [facility] furosemide (LASIX) injection 80 mg 2021-08 19:45: 00 05-05 20:49 :00 No 80mg 80 mg, IV Push, ONCE, 1 dose, On Thu05/05/22 at 1445, [facility] spironolact one (ALDACTONE) tablet 50 mg 04-30 14:00: 00 Yes 50mg 50 mg, Oral, DAILY, First dose on Thu04/30/22 at 0900, Until Discontinu ed, Routine [facility] omeprazole (PRILOSEC) capsule 40 mg 04-30 14:00: 00 Yes 40mg 40 mg, Oral, DAILY, First dose on Thu04/30/22 at 0900, Until Discontinu ed, Routine [facility] magnesium oxide (MAGOX) 400 mg (241.3 mg magnesium) tablet 04-30 14:00: 00 Yes 400mg Take 1 tablet by mouth in the morning. [facility] docusate (COLACE) capsule 100 mg 04-30 14:00: 00 Yes 100mg 100 mg, Oral, DAILY, First dose on Thu04/30/22 at 0900, Until Discontinu ed [facility] cholecalcif mika (vitamin D3) tablet 1,000 Units 04-30 14:00: 00 Yes 1000U 1,000 Units, Oral, DAILY, First dose on Thu04/30/22 at 0900, Until Discontinu ed, Routine [facility] bumetanide (BUMEX) tablet 4 mg 04-30 14:00: 00 Yes 4mg 4 mg, Oral, DAILY, First dose on Thu04/30/22 at 0900, Until Discontinu ed, Routine [facility] aspirin EC tablet 81 mg 04-30 14:00: 00 Yes 81mg 81 mg, Oral, DAILY, First dose on Thu04/30/22 at 0900, Until Discontinu ed, Routine [facility] tiZANidine 2 mg tablet 04-30 11:36: 26 Yes 2mg Take 2 mg by mouth every 8 (eight) hours as needed. [facility] carvediloL (COREG) 25 mg tablet 04-30 11:36: 26 Yes 25mg Take 25 mg by mouth in the morning and 25 mg in the evening. Take with meals. [facility] atorvastati n (LIPITOR) tablet 80 mg 04-30 02:00: 00 Yes 80mg 80 mg, Oral, QHS, First dose on Thu04/29/22 at 2100, Until Discontinu ed, Routine [facility] gabapentin (NEURONTIN) capsule 100 mg 04-30 01:00: 00 Yes 100mg 100 mg, Oral, TID, First dose on Thu04/29/22 at 2000, Until Discontinu ed, Routine [facility] apixaban (ELIQUIS) tablet 5 mg 04-30 01:00: 00 Yes [id number] 5mg 5 mg, Oral, BID, First dose on Thu04/29/22 at 2000, Until Discontinu ed, Routine
Indicatio ns: Non-Valvul ar Atrial Fibrillati on [facility] Sliding Scale Insulin - Lispro (HumaLOG) + Fsbg Testing 04-29 22:00: 00 Yes Subcutaneo us, TID MEALS+HS, First dose on Thu04/29/22 at 1700, Until Discontinu ed, Routine [facility] bumetanide (BUMEX) tablet 3 mg 04-29 22:00: 00 Yes 3mg 3 mg, Oral, QPM, First dose on Thu04/29/22 at 1700, Until Discontinu ed, [facility] 25 mg 04-29 22:00: 00 Yes 25mg 25 mg, Oral, BID MEALS, First dose on Thu04/29/22 at 1700, Until Discontinu ed, Routine [facility] dextrose 10% (D10W) bolus infusion 250 mL 04-29 21:10: 44 Yes 250mL 250 mL, IV Infusion, PRN - SEE INSTRUCTIO NS, Administer over 60 Minutes, Other, If blood glucose is < or = 70 mg/dL and patient is unable to swallow or has mental status changes, Starting on Thu04/29/22 at 1610
If blood glucose is < [...] blood glucose is < 80 mg/dL, repeat.
[facility] glucagon (GLUCAGEN DIAGNOSTIC KIT) injection 1 mg 04-29 21:10: 41 Yes 1mg 1 mg, Intramuscu lar, PRN, Starting on Thu04/29/22 at 1610, Until Discontinu ed, MJ, Blood Glucose < or = 70 mg/dL and patient is unable to swallow or has mental changes. [facility] ondansetron (ZOFRAN (PF)) injection 4 mg 04-29 21:10: 33 Yes 4mg 4 mg, Slow IV Push, Q6HPRN, Starting on Thu04/29/22 at 1610, Until Discontinu ed, Routine, Nausea and Vomiting (N/V) [facility] morpHINE (4 mg/mL) injection 4 mg 04-29 21:10: 30 04-30 21:09 :30 No 4mg 4 mg, Slow IV Push, Q4HPRN, Starting on Thu04/29/22 at 1610, Until Thu04/30/22 at 1609, Routine, Pain (scale 7-10) [facility] HYDROcodone -acetaminop hen (NORCO 5) 5-325 mg tablet 1 tablet 04-29 21:10: 28 05-01 21:09 :28 No 1{tbl} 1 tablet, Oral, Q6HPRN, Starting on Thu04/29/22 at 1610, Until Thu05/01/22 at 1609, Routine, Pain (scale 4-6) [facility] acetaminoph en (TYLENOL) tablet 650 mg 04-29 21:10: 25 Yes 650mg 650 mg, Oral, Q6HPRN, Starting on Thu04/29/22 at 1610, Until Discontinu ed, Routine, Pain (scale 1-3) [facility] tiZANidine (ZANAFLEX) tablet 4 mg 04-29 21:08: 14 Yes 4mg 4 mg, Oral, Q8HPRN, Starting on Thu04/29/22 at 1608, Until Discontinu ed, Routine, Muscle Spasms [facility] HYDROcodone -acetaminop hen (NORCO) 10-325 mg tablet 1 tablet 04-29 17:00: 00 04-29 16:01 :00 No 1{tbl} 1 tablet, Oral, ONCE NOW, 1 dose, On Thu04/29/22 at 1200, Routine [facility] hydralAZINE (APRESOLINE ) injection 10 mg 04-29 16:45: 00 04-29 16:50 :00 No 10mg 10 mg, Slow IV Push, ONCE, 1 dose, On Thu04/29/22 at 1145, [facility] 04-28 00:00: 00 Yes [id number] Check sugars 1 times a day. Dx Code E11.9. Brand per insurance. [facility] 04-28 00:00: 00 04-13 00:00 :00 No [id number] Check sugars 1 times a day. Dx Code E11.9. Brand per insurance. [facility] Docusate Sodium 100 mg tablet 04-28 00:00: 00 01-04 00:00 :00 No [id number] 100mg Take 1 tablet by mouth in the morning. [facility] acetaminoph en-codeine 300-30 mg tablet 04-28 00:00: 00 01-04 00:00 :00 No [id number] 1{tbl} Take 1 tablet by mouth as needed (take daily as needed for severe right knee pain, s/p TKA, heart failure, unable to take NSAIDS). Indication s: chronic pain [facility] Blood-Gluco se Meter Kit 04-28 00:00: 00 05-05 00:00 :00 No [id number] Check sugars 1 times a day. Dx Code E11.9. Brand per insurance. [facility] blood sugar diagnostic strip 04-28 00:00: 00 05-05 00:00 :00 No [id number] Check sugars 1 times a day. Dx Code E11.9. Brand per insurance. [facility] semaglutide 7 mg Tab 04-26 00:00: 00 08-21 00:00 :00 No [id number] 7mg Take 7 mg by mouth daily. Take > 30 minutes prior to first meal of the day [facility] bumetanide (BUMEX) tablet 3 mg 04-24 02:00: 00 Yes 3mg 3 mg, Oral, QHS, First dose on Thu04/23/22 at 2100, Until Discontinu ed, Routine [facility] omeprazole (PRILOSEC) capsule 40 mg 04-23 14:00: 00 Yes 40mg 40 mg, Oral, DAILY, First dose on Thu04/23/22 at 0900, Until Discontinu ed [facility] spironolact one (ALDACTONE) tablet 50 mg 04-23 14:00: 00 Yes 50mg 50 mg, Oral, DAILY, First dose on Thu04/23/22 at 0900, Until Discontinu ed, Routine [facility] aspirin EC tablet 81 mg 04-23 14:00: 00 Yes 81mg 81 mg, Oral, DAILY, First dose on Thu04/23/22 at 0900, Until Discontinu ed, Routine [facility] carvediloL (COREG) tablet 25 mg 04-23 13:00: 00 Yes 25mg 25 mg, Oral, BID MEALS, First dose on Thu04/23/22 at 0800, Until Discontinu ed, Routine [facility] tiZANidine 2 mg tablet 04-23 11:56: 44 Yes 2mg Take 2 mg by mouth every 8 (eight) hours as needed. [facility] carvediloL (COREG) 25 mg tablet 04-23 11:56: 44 Yes 25mg Take 25 mg by mouth in the morning and 25 mg in the evening. Take with meals. [facility] atorvastati n (LIPITOR) tablet 80 mg 04-23 02:00: 00 Yes 80mg 80 mg, Oral, QHS, First dose on Thu04/22/22 at 2100, Until Discontinu ed, Routine [facility] gabapentin (NEURONTIN) capsule 100 mg 04-23 01:00: 00 Yes 100mg 100 mg, Oral, TID, First dose on Thu04/22/22 at 2000, Until Discontinu ed, Routine [facility] apixaban (ELIQUIS) tablet 5 mg 04-23 01:00: 00 Yes 1358 5mg 5 mg, Oral, BID, First dose on Thu04/22/22 at 2000, Until Discontinu ed, Routine
Indicatio ns: Non-Valvul ar Atrial Fibrillati on [facility] HYDROcodone -acetaminop hen (NORCO 5) 5-325 mg tablet 1 tablet 04-23 00:16: 33 04-25 00:15 :33 No 1{tbl} 1 tablet, Oral, Q6HPRN, Starting on Thu04/22/22 at 1916, Until Thu04/24/22 at 191, Routine, Pain (scale 4-6) [facility] acetaminoph en (TYLENOL) tablet 650 mg 04-23 00:16: 30 Yes 650mg 650 mg, Oral, Q6HPRN, Starting on Thu04/22/22 at 1916, Until Discontinu ed, Routine, Pain (scale 1-3) [facility] HYDROcodone -acetaminop hen (NORCO) 10-325 mg tablet 1 tablet 04-22 17:00: 00 04-22 16:58 :00 No 1{tbl} 1 tablet, Oral, ONCE, 1 dose, On Thu04/22/22 at 1200, Routine [facility] amLODIPine (NORVASC) tablet 10 mg 04-22 16:15: 00 Yes 10mg 10 mg, Oral, DAILY, First dose on Thu04/22/22 at 1115, Until Discontinu ed, Routine [facility] bumetanide (BUMEX) tablet 4 mg 04-22 16:15: 00 Yes 4mg 4 mg, Oral, DAILY, First dose on Thu04/22/22 at 1115, Until Discontinu ed, Routine [facility] carvediloL (COREG) tablet 25 mg 04-22 16:15: 00 04-23 00:09 :57 No 25mg 25 mg, Oral, BID MEALS, First dose on Thu04/22/22 at 1115, Until Discontinu ed, Routine [facility] furosemide (LASIX) injection 40 mg 04-22 15:00: 00 04-22 15:26 :00 No 40mg 40 mg, IV Push, ONCE, 1 dose, On Thu04/22/22 at 1000, MJ [facility] colchicine (COLCRYS) tablet 1.2 mg 04-17 13:30: 00 04-17 12:39 :00 No 1.2mg 1.2 mg, Oral, ONCE, 1 dose, On Thu04/17/22 at 0830, Routine [facility] HYDROcodone -acetaminop hen (NORCO) 10-325 mg tablet 1 tablet 04-17 13:30: 00 04-17 12:39 :00 No 1{tbl} 1 tablet, Oral, ONCE, 1 dose, On Thu04/17/22 at 0830, Routine [facility] tiZANidine 2 mg tablet 831 16:18: 41 Yes 2mg Take 2 mg by mouth every 8 (eight) hours as needed. [facility] blood sugar diagnostic strip 824 00:00: 00 Yes [id number] Check blood sugar 2 times a day. E11.9. Brand per insurance. [facility] Blood-Gluco se Meter Kit 24 00:00: 00 Yes [id number] Check sugars 2 times a day. Dx. Code E11.9 Brand per Insurance [facility] blood sugar diagnostic strip 03-26 00:00: 00 04-13 00:00 :00 No [id number] Check blood sugar 2 times a day. E11.9. Brand per insurance. [facility] Blood-Gluco se Meter Kit 03-26 00:00: 00 04-13 00:00 :00 No [id number] Check sugars 2 times a day. Dx. Code E11.9 Brand per Insurance [facility] semaglutide 3 mg Tab 03-26 00:00: 00 04-26 04:59 :00 No [id number] 3mg Take 3 mg by mouth daily for 30 days. Take > 30 minutes prior to first meal of the day. [facility] amLODIPine 10 mg tablet 03-20 00:00: 00 04-20 04:59 :00 No [id number] 10mg Take 1 tablet by mouth in the morning for 30 days. [facility] carvediloL 25 mg tablet 05 00:00: 00 04-07 04:59 :00 No [id number] 25mg Take 1 tablet by mouth in the morning and 1 tablet in the evening. Take with meals. [facility] lisinopriL 10 mg tablet 805 00:00: 00 04-07 04:59 :00 No [id number] 10mg Take 1 tablet by mouth in the morning and 1 tablet in the evening. Do all this for 30 days. [facility] bumetanide 1 mg tablet 03-06 00:00: 00 08-21 00:00 :00 No [id number] TAKE 4 TABLETS BY MOUTH IN THE MORNING AND 3TABLETS AT NIGHT [facility] Magnesium Oxide 420 mg Tab 03-04 00:00: 00 08-21 00:00 :00 No 400mg Take 400 mg by mouth daily. [facility] spironolact one 25 mg tablet 02-10 00:00: 00 05-15 00:00 :00 No [id number] 50mg Take 2 tablets by mouth in the morning. [facility] aspirin 81 mg EC tablet 02-05 00:00: 00 01-11 00:00 :00 No [id number] 81mg Take 1 tablet by mouth daily. [facility] cholecalcif mika, vitamin D3, 25 mcg (1,000 unit) tablet 02-05 00:00: 00 01-04 00:00 :00 No [id number] 1000U Take 1 tablet by mouth daily. [facility] atorvastati n 80 mg tablet 02-05 00:00: 00 05-01 00:00 :00 No [id number] 80mg Take 1 tablet by mouth at bedtime. [facility] acetaminoph en-codeine 300-30 mg tablet 01-09 00:00: 04-28 00:00 :00 No [id number] 1{tbl} Take 1 tablet by mouth as needed (take daily as needed for severe right knee pain, s/p TKA, heart failure, unable to take NSAIDS). Indication s: chronic pain [facility] acetaminoph en 650 mg CR tablet 01-07 00:00: 00 01-04 00:00 :00 No [id number] 650mg Take 1 tablet by mouth every 8 (eight) hours as needed for Pain or Fever. [facility] Lancets Misc 01-02 00:00: 05-05 00:00 :00 No [id number] Check sugars 2 times a day. Dx Code E11.9. Brand per insurance. [facility] blood sugar diagnostic strip 01-02 00:00: 00 03-26 00:00 :00 No [id number] Check sugars 2 times a day. Dx Code E11.9. Brand per insurance. [facility] Diclofenac Sodium (VOLTAREN) 1 % gel 12-25 00:00: 00 01-04 00:00 :00 No [id number] Apply to area(s) 4 (four) times daily. Apply 4 g qid [facility] gabapentin 100 mg capsule 12-25 00:00: 00 01-04 00:00 :00 No [id number] 100mg Take 1 capsule by mouth 3 (three) times daily. [facility] omeprazole 40 mg capsule 12-19 09:09: 12-19 00:00 :00 No 40mg Take 40 mg by mouth daily. [facility] omeprazole 40 mg capsule 12-19 00:00: 00 Yes [id number] 40mg Take 1 capsule by mouth daily. [facility] apixaban 5 mg tablet 11-03 00:00: 00 06-09 00:00 :00 No [id number] 5mg Take 1 tablet by mouth 2 (two) times daily. Indication s: atrial fibrillati on [facility] hydrALAZINE 25 mg tablet 08-26 00:00: 00 09-05 00:00 :00 No [id number] 25mg Take 1 tablet by mouth 2 (two) times daily for 30 days. [facility] KCL 20 mEq tablet 08-26 00:00: 00 09-05 00:00 :00 No [id number] 20meq Take 1 tablet by mouth daily for 30 days. [facility] carvediloL 25 mg tablet 24 00:00: 00 09-05 00:00 :00 No [id number] 50mg Take 2 tablets by mouth 2 (two) times daily with meals for 30 days. [facility] bumetanide 1 mg tablet 1-24 00:00: 00 09-01 00:00 :00 No [id number] 1mg Take 1 tablet by mouth every morning and evening for 30 days. [facility] acetaminoph en 325 mg tablet 08-09 00:00: 00 09-09 05:59 :00 No [id number] 650mg Take 2 tablets by mouth every 6 (six) hours as needed for Pain (scale 1-3) or Temp > 38.5 C for up to 30 days. [facility] cholecalcif mika, vitamin D3, 25 mcg (1,000 unit) tablet 2020-08 2- 00:00: 00 02-05 00:00 :00 No [id number] 1000U Take 1 tablet by mouth daily. [facility] atorvastati n 80 mg tablet 2020-08 00:00: 00 02-05 00:00 :00 No [id number] 80mg Take 1 tablet by mouth at bedtime. [facility] clopidogreL 75 mg tablet 2020-08 0 00:00: 00 11-03 00:00 :00 No [id number] 75mg Take 1 tablet by mouth daily. [facility] aspirin 81 mg EC tablet 08 00:00: 00 02-05 00:00 :00 No [id number] 81mg Take 1 tablet by mouth daily. [facility] nitroglycer in 0.4 mg sublingual tablet 12-28 00:00: 00 02-05 00:00 :[id number] 1 tablet under the tongue every 5 (five) minutes as needed for Chest pain. [facility] Immunizations Ordered Immunization Name Filled Immunization Name Date Status Comments Source SARS-COV-2 COVID-19 PFIZER VACCINE 2021-08-02 00:00:00 Completed [facility] SARS-COV-2 COVID-19 PFIZER VACCINE 2021-08-02 00:00:00 Completed [facility] SARS-COV-2 COVID-19 PFIZER VACCINE 2021-08-02 00:00:00 Completed [facility] SARS-COV-2 COVID-19 PFIZER VACCINE 2021-08-02 00:00:00 Completed [facility] SARS-COV-2 COVID-19 PFIZER VACCINE 2021-08-02 00:00:00 Completed [facility] SARS-COV-2 COVID-19 PFIZER VACCINE 2021-08-02 00:00:00 Completed [facility] SARS-COV-2 COVID-19 PFIZER VACCINE 2021-08-02 00:00:00 Completed [facility] SARS-COV-2 COVID-19 PFIZER VACCINE 2021-08-02 00:00:00 Completed [facility] SARS-COV-2 COVID-19 PFIZER VACCINE 2021-08-02 00:00:00 Completed [facility] SARS-COV-2 COVID-19 PFIZER VACCINE 2021-08-02 00:00:00 Completed [facility] SARS-COV-2 COVID-19 PFIZER VACCINE 2021-08-02 00:00:00 Completed [facility] SARS-COV-2 COVID-19 PFIZER VACCINE 2021-08-02 00:00:00 Completed [facility] SARS-COV-2 COVID-19 PFIZER VACCINE 2021-08-02 00:00:00 Completed [facility] SARS-COV-2 COVID-19 PFIZER VACCINE 2021-08-02 00:00:00 Completed [facility] SARS-COV-2 COVID-19 PFIZER VACCINE 2021-08-02 00:00:00 Completed [facility] SARS-COV-2 COVID-19 PFIZER VACCINE 2021-08-02 00:00:00 Completed [facility] SARS-COV-2 COVID-19 PFIZER VACCINE 2021-08-02 00:00:00 Completed [facility] SARS-COV-2 COVID-19 PFIZER VACCINE 2021-08-02 00:00:00 Completed [facility] SARS-COV-2 COVID-19 PFIZER VACCINE 2021-08-02 00:00:00 Completed [facility] SARS-COV-2 COVID-19 PFIZER VACCINE 2021-08-02 00:00:00 Completed [facility] SARS-COV-2 COVID-19 PFIZER VACCINE 2021-08-02 00:00:00 Completed [facility] SARS-COV-2 COVID-19 PFIZER VACCINE 2021-08-02 00:00:00 Completed [facility] SARS-COV-2 COVID-19 PFIZER VACCINE 2021-08-02 00:00:00 Completed [facility] SARS-COV-2 COVID-19 PFIZER VACCINE 2021-08-02 00:00:00 Completed [facility] SARS-COV-2 COVID-19 PFIZER VACCINE 2021-08-02 00:00:00 Completed [facility] SARS-COV-2 COVID-19 PFIZER VACCINE 2021-08-02 00:00:00 Completed [facility] SARS-COV-2 COVID-19 PFIZER VACCINE 2021-08-02 00:00:00 Completed [facility] SARS-COV-2 COVID-19 PFIZER VACCINE 2021-08-02 00:00:00 Completed [facility] SARS-COV-2 COVID-19 PFIZER VACCINE 2021-08-02 00:00:00 Completed [facility] SARS-COV-2 COVID-19 PFIZER VACCINE 2021-08-02 00:00:00 Completed [facility] SARS-COV-2 COVID-19 PFIZER VACCINE 2021-08-02 00:00:00 Completed [facility] SARS-COV-2 COVID-19 PFIZER VACCINE 2021-08-02 00:00:00 Completed [facility] SARS-COV-2 COVID-19 PFIZER VACCINE 2021-08-02 00:00:00 Completed [facility] SARS-COV-2 COVID-19 PFIZER VACCINE 2021-08-02 00:00:00 Completed [facility] SARS-COV-2 COVID-19 PFIZER VACCINE 2021-08-02 00:00:00 Completed [facility] SARS-COV-2 COVID-19 PFIZER VACCINE 2021-08-02 00:00:00 Completed [facility] SARS-COV-2 COVID-19 PFIZER VACCINE 2021-08-02 00:00:00 Completed [facility] SARS-COV-2 COVID-19 PFIZER VACCINE 2021-08-02 00:00:00 Completed [facility] SARS-COV-2 COVID-19 PFIZER VACCINE 2021-08-02 00:00:00 Completed [facility] SARS-COV-2 COVID-19 PFIZER VACCINE 2021-08-02 00:00:00 Completed [facility] SARS-COV-2 COVID-19 PFIZER VACCINE 2021-08-02 00:00:00 Completed [facility] SARS-COV-2 COVID-19 PFIZER VACCINE 2021-08-02 00:00:00 Completed [facility] SARS-COV-2 COVID-19 PFIZER VACCINE 2021-08-02 00:00:00 Completed [facility] SARS-COV-2 COVID-19 PFIZER VACCINE 2021-08-02 00:00:00 Completed [facility] SARS-COV-2 COVID-19 PFIZER VACCINE 2021-08-02 00:00:00 Completed [facility] SARS-COV-2 COVID-19 PFIZER VACCINE 2021-08-02 00:00:00 Completed [facility] SARS-COV-2 COVID-19 PFIZER VACCINE 2021-08-02 00:00:00 Completed [facility] SARS-COV-2 COVID-19 PFIZER VACCINE 2021-08-02 00:00:00 Completed [facility] SARS-COV-2 COVID-19 PFIZER VACCINE 2021-08-02 00:00:00 Completed [facility] SARS-COV-2 COVID-19 PFIZER VACCINE 2021-08-02 00:00:00 Completed [facility] SARS-COV-2 COVID-19 PFIZER VACCINE 2021-08-02 00:00:00 Completed [facility] SARS-COV-2 COVID-19 PFIZER VACCINE 2021-08-02 00:00:00 Completed [facility] SARS-COV-2 COVID-19 PFIZER VACCINE 2021-08-02 00:00:00 Completed [facility] SARS-COV-2 COVID-19 PFIZER VACCINE 2021-08-02 00:00:00 Completed [facility] SARS-COV-2 COVID-19 PFIZER VACCINE 2021-08-02 00:00:00 Completed [facility] SARS-COV-2 COVID-19 PFIZER VACCINE 2021-08-02 00:00:00 Completed [facility] SARS-COV-2 COVID-19 PFIZER VACCINE 2021-08-02 00:00:00 Completed [facility] SARS-COV-2 COVID-19 PFIZER VACCINE 2021-08-02 00:00:00 Completed [facility] SARS-COV-2 COVID-19 PFIZER VACCINE 2021-08-02 00:00:00 Completed [facility] SARS-COV-2 COVID-19 PFIZER VACCINE 2021-08-02 00:00:00 Completed [facility] SARS-COV-2 COVID-19 PFIZER VACCINE 2021-08-02 00:00:00 Completed [facility] SARS-COV-2 COVID-19 PFIZER VACCINE 2021-08-02 00:00:00 Completed [facility] SARS-COV-2 COVID-19 PFIZER VACCINE 2021-08-02 00:00:00 Completed [facility] SARS-COV-2 COVID-19 PFIZER VACCINE 2021-08-02 00:00:00 Completed [facility] SARS-COV-2 COVID-19 PFIZER VACCINE 2021-08-02 00:00:00 Completed [facility] SARS-COV-2 COVID-19 PFIZER VACCINE 2021-08-02 00:00:00 Completed [facility] SARS-COV-2 COVID-19 PFIZER VACCINE 2021-08-02 00:00:00 Completed [facility] SARS-COV-2 COVID-19 PFIZER VACCINE 2021-08-02 00:00:00 Completed [facility] SARS-COV-2 COVID-19 PFIZER VACCINE 2021-08-02 00:00:00 Completed [facility] SARS-COV-2 COVID-19 PFIZER VACCINE 2021-08-02 00:00:00 Completed [facility] Influenza Virus Vaccine Quad .5 mL IM 6+ MO 2020-09-24 00:00:00 Completed [facility] Influenza Virus Vaccine Quad .5 mL IM 6+ MO 2020-09-24 00:00:00 Completed [facility] Influenza Virus Vaccine Quad .5 mL IM 6+ MO 2020-09-24 00:00:00 Completed [facility] Influenza Virus Vaccine Quad .5 mL IM 6+ MO 2020-09-24 00:00:00 Completed [facility] Influenza Virus Vaccine Quad .5 mL IM 6+ MO 2020-09-24 00:00:00 Completed [facility] Influenza Virus Vaccine Quad .5 mL IM 6+ MO 2020-09-24 00:00:00 Completed [facility] Influenza Virus Vaccine Quad .5 mL IM 6+ MO 2020-09-24 00:00:00 Completed [facility] Influenza Virus Vaccine Quad .5 mL IM 6+ MO 2020-09-24 00:00:00 Completed [facility] Influenza Virus Vaccine Quad .5 mL IM 6+ MO 2020-09-24 00:00:00 Completed [facility] Influenza Virus Vaccine Quad .5 mL IM 6+ MO 2020-09-24 00:00:00 Completed [facility] Influenza Virus Vaccine Quad .5 mL IM 6+ MO 2020-09-24 00:00:00 Completed [facility] Influenza Virus Vaccine Quad .5 mL IM 6+ MO 2020-09-24 00:00:00 Completed [facility] Influenza Virus Vaccine Quad .5 mL IM 6+ MO 2020-09-24 00:00:00 Completed [facility] Influenza Virus Vaccine Quad .5 mL IM 6+ MO 2020-09-24 00:00:00 Completed [facility] Influenza Virus Vaccine Quad .5 mL IM 6+ MO 2020-09-24 00:00:00 Completed [facility] Influenza Virus Vaccine Quad .5 mL IM 6+ MO 2020-09-24 00:00:00 Completed [facility] Influenza Virus Vaccine Quad .5 mL IM 6+ MO 2020-09-24 00:00:00 Completed [facility] Influenza Virus Vaccine Quad .5 mL IM 6+ MO 2020-09-24 00:00:00 Completed [facility] Influenza Virus Vaccine Quad .5 mL IM 6+ MO 2020-09-24 00:00:00 Completed [facility] Influenza Virus Vaccine Quad .5 mL IM 6+ MO 2020-09-24 00:00:00 Completed [facility] Influenza Virus Vaccine Quad .5 mL IM 6+ MO 2020-09-24 00:00:00 Completed [facility] Influenza Virus Vaccine Quad .5 mL IM 6+ MO 2020-09-24 00:00:00 Completed [facility] Influenza Virus Vaccine Quad .5 mL IM 6+ MO 2020-09-24 00:00:00 Completed [facility] Influenza Virus Vaccine Quad .5 mL IM 6+ MO 2020-09-24 00:00:00 Completed [facility] Influenza Virus Vaccine Quad .5 mL IM 6+ MO 2020-09-24 00:00:00 Completed [facility] Influenza Virus Vaccine Quad .5 mL IM 6+ MO 2020-09-24 00:00:00 Completed [facility] Influenza Virus Vaccine Quad .5 mL IM 6+ MO 2020-09-24 00:00:00 Completed [facility] Influenza Virus Vaccine Quad .5 mL IM 6+ MO 2020-09-24 00:00:00 Completed [facility] Influenza Virus Vaccine Quad .5 mL IM 6+ MO 2020-09-24 00:00:00 Completed [facility] Influenza Virus Vaccine Quad .5 mL IM 6+ MO 2020-09-24 00:00:00 Completed [facility] Influenza Virus Vaccine Quad .5 mL IM 6+ MO 2020-09-24 00:00:00 Completed [facility] Influenza Virus Vaccine Quad .5 mL IM 6+ MO 2020-09-24 00:00:00 Completed [facility] Influenza Virus Vaccine Quad .5 mL IM 6+ MO 2020-09-24 00:00:00 Completed [facility] Influenza Virus Vaccine Quad .5 mL IM 6+ MO 2020-09-24 00:00:00 Completed [facility] Influenza Virus Vaccine Quad .5 mL IM 6+ MO 2020-09-24 00:00:00 Completed [facility] Influenza Virus Vaccine Quad .5 mL IM 6+ MO 2020-09-24 00:00:00 Completed [facility] Influenza Virus Vaccine Quad .5 mL IM 6+ MO 2020-09-24 00:00:00 Completed [facility] Influenza Virus Vaccine Quad .5 mL IM 6+ MO 2020-09-24 00:00:00 Completed [facility] Influenza Virus Vaccine Quad .5 mL IM 6+ MO 2020-09-24 00:00:00 Completed [facility] Influenza Virus Vaccine Quad .5 mL IM 6+ MO 2020-09-24 00:00:00 Completed [facility] Influenza Virus Vaccine Quad .5 mL IM 6+ MO 2020-09-24 00:00:00 Completed [facility] Influenza Virus Vaccine Quad .5 mL IM 6+ MO 2020-09-24 00:00:00 Completed [facility] Influenza Virus Vaccine Quad .5 mL IM 6+ MO 2020-09-24 00:00:00 Completed [facility] Influenza Virus Vaccine Quad .5 mL IM 6+ MO 2020-09-24 00:00:00 Completed [facility] Influenza Virus Vaccine Quad .5 mL IM 6+ MO 2020-09-24 00:00:00 Completed [facility] Influenza Virus Vaccine Quad .5 mL IM 6+ MO 2020-09-24 00:00:00 Completed [facility] Influenza Virus Vaccine Quad .5 mL IM 6+ MO 2020-09-24 00:00:00 Completed [facility] Influenza Virus Vaccine Quad .5 mL IM 6+ MO 2020-09-24 00:00:00 Completed [facility] Influenza Virus Vaccine Quad .5 mL IM 6+ MO 2020-09-24 00:00:00 Completed [facility] Influenza Virus Vaccine Quad .5 mL IM 6+ MO 2020-09-24 00:00:00 Completed [facility] Influenza Virus Vaccine Quad .5 mL IM 6+ MO 2020-09-24 00:00:00 Completed [facility] Influenza Virus Vaccine Quad .5 mL IM 6+ MO 2020-09-24 00:00:00 Completed [facility] Influenza Virus Vaccine Quad .5 mL IM 6+ MO 2020-09-24 00:00:00 Completed [facility] Influenza Virus Vaccine Quad .5 mL IM 6+ MO 2020-09-24 00:00:00 Completed [facility] Influenza Virus Vaccine Quad .5 mL IM 6+ MO 2020-09-24 00:00:00 Completed [facility] Influenza Virus Vaccine Quad .5 mL IM 6+ MO 2020-09-24 00:00:00 Completed [facility] Influenza Virus Vaccine Quad .5 mL IM 6+ MO 2020-09-24 00:00:00 Completed [facility] Influenza Virus Vaccine Quad .5 mL IM 6+ MO 2020-09-24 00:00:00 Completed [facility] Influenza Virus Vaccine Quad .5 mL IM 6+ MO 2020-09-24 00:00:00 Completed [facility] Influenza Virus Vaccine Quad .5 mL IM 6+ MO 2020-09-24 00:00:00 Completed [facility] Influenza Virus Vaccine Quad .5 mL IM 6+ MO 2020-09-24 00:00:00 Completed [facility] Influenza Virus Vaccine Quad .5 mL IM 6+ MO 2020-09-24 00:00:00 Completed [facility] Influenza Virus Vaccine Quad .5 mL IM 6+ MO 2020-09-24 00:00:00 Completed [facility] Influenza Virus Vaccine Quad .5 mL IM 6+ MO 2020-09-24 00:00:00 Completed [facility] Influenza Virus Vaccine Quad .5 mL IM 6+ MO 2020-09-24 00:00:00 Completed [facility] Influenza Virus Vaccine Quad .5 mL IM 6+ MO 2020-09-24 00:00:00 Completed [facility] Influenza Virus Vaccine Quad .5 mL IM 6+ MO (FLUZONE/FLULAVAL/F LUARIX) 2020-09-24 00:00:00 Completed [facility] Influenza Virus Vaccine Quad .5 mL IM 6+ MO (FLUZONE/FLULAVAL/F LUARIX) 2020-09-24 00:00:00 Completed [facility] Influenza Virus Vaccine Quad .5 mL IM 6+ MO (FLUZONE/FLULAVAL/F LUARIX) 2020-09-24 00:00:00 Completed [facility] Influenza Virus Vaccine Quad .5 mL IM 6+ MO (FLUZONE/FLULAVAL/F LUARIX) 2020-09-24 00:00:00 Completed [facility] Influenza Virus Vaccine Quad .5 mL IM 6+ MO 2020-05-03 00:00:00 Completed [facility] Influenza Virus Vaccine Quad .5 mL IM 6+ MO 2020-05-03 00:00:00 Completed [facility] Influenza Virus Vaccine Quad .5 mL IM 6+ MO 2020-05-03 00:00:00 Completed [facility] Influenza Virus Vaccine Quad .5 mL IM 6+ MO 2020-05-03 00:00:00 Completed [facility] Influenza Virus Vaccine Quad .5 mL IM 6+ MO 2020-05-03 00:00:00 Completed [facility] Influenza Virus Vaccine Quad .5 mL IM 6+ MO 2020-05-03 00:00:00 Completed [facility] Influenza Virus Vaccine Quad .5 mL IM 6+ MO 2020-05-03 00:00:00 Completed [facility] Influenza Virus Vaccine Quad .5 mL IM 6+ MO 2020-05-03 00:00:00 Completed [facility] Influenza Virus Vaccine Quad .5 mL IM 6+ MO 2020-05-03 00:00:00 Completed [facility] Influenza Virus Vaccine Quad .5 mL IM 6+ MO 2020-05-03 00:00:00 Completed [facility] Influenza Virus Vaccine Quad .5 mL IM 6+ MO 2020-05-03 00:00:00 Completed [facility] Influenza Virus Vaccine Quad .5 mL IM 6+ MO 2020-05-03 00:00:00 Completed [facility] Influenza Virus Vaccine Quad .5 mL IM 6+ MO 2020-05-03 00:00:00 Completed [facility] Influenza Virus Vaccine Quad .5 mL IM 6+ MO 2020-05-03 00:00:00 Completed [facility] Influenza Virus Vaccine Quad .5 mL IM 6+ MO 2020-05-03 00:00:00 Completed [facility] Influenza Virus Vaccine Quad .5 mL IM 6+ MO 2020-05-03 00:00:00 Completed [facility] Influenza Virus Vaccine Quad .5 mL IM 6+ MO 2020-05-03 00:00:00 Completed [facility] Influenza Virus Vaccine Quad .5 mL IM 6+ MO 2020-05-03 00:00:00 Completed [facility] Influenza Virus Vaccine Quad .5 mL IM 6+ MO 2020-05-03 00:00:00 Completed [facility] Influenza Virus Vaccine Quad .5 mL IM 6+ MO 2020-05-03 00:00:00 Completed [facility] Influenza Virus Vaccine Quad .5 mL IM 6+ MO 2020-05-03 00:00:00 Completed [facility] Influenza Virus Vaccine Quad .5 mL IM 6+ MO 2020-05-03 00:00:00 Completed [facility] Influenza Virus Vaccine Quad .5 mL IM 6+ MO 2020-05-03 00:00:00 Completed [facility] Influenza Virus Vaccine Quad .5 mL IM 6+ MO 2020-05-03 00:00:00 Completed [facility] Influenza Virus Vaccine Quad .5 mL IM 6+ MO 2020-05-03 00:00:00 Completed [facility] Influenza Virus Vaccine Quad .5 mL IM 6+ MO 2020-05-03 00:00:00 Completed [facility] Influenza Virus Vaccine Quad .5 mL IM 6+ MO 2020-05-03 00:00:00 Completed [facility] Influenza Virus Vaccine Quad .5 mL IM 6+ MO 2020-05-03 00:00:00 Completed [facility] Influenza Virus Vaccine Quad .5 mL IM 6+ MO 2020-05-03 00:00:00 Completed [facility] Influenza Virus Vaccine Quad .5 mL IM 6+ MO 2020-05-03 00:00:00 Completed [facility] Influenza Virus Vaccine Quad .5 mL IM 6+ MO 2020-05-03 00:00:00 Completed [facility] Influenza Virus Vaccine Quad .5 mL IM 6+ MO 2020-05-03 00:00:00 Completed [facility] Influenza Virus Vaccine Quad .5 mL IM 6+ MO 2020-05-03 00:00:00 Completed [facility] Influenza Virus Vaccine Quad .5 mL IM 6+ MO 2020-05-03 00:00:00 Completed [facility] Influenza Virus Vaccine Quad .5 mL IM 6+ MO 2020-05-03 00:00:00 Completed [facility] Influenza Virus Vaccine Quad .5 mL IM 6+ MO 2020-05-03 00:00:00 Completed [facility] Influenza Virus Vaccine Quad .5 mL IM 6+ MO 2020-05-03 00:00:00 Completed [facility] Influenza Virus Vaccine Quad .5 mL IM 6+ MO 2020-05-03 00:00:00 Completed [facility] Influenza Virus Vaccine Quad .5 mL IM 6+ MO 2020-05-03 00:00:00 Completed [facility] Influenza Virus Vaccine Quad .5 mL IM 6+ MO 2020-05-03 00:00:00 Completed [facility] Influenza Virus Vaccine Quad .5 mL IM 6+ MO 2020-05-03 00:00:00 Completed [facility] Influenza Virus Vaccine Quad .5 mL IM 6+ MO 2020-05-03 00:00:00 Completed [facility] Influenza Virus Vaccine Quad .5 mL IM 6+ MO 2020-05-03 00:00:00 Completed [facility] Influenza Virus Vaccine Quad .5 mL IM 6+ MO 2020-05-03 00:00:00 Completed [facility] Influenza Virus Vaccine Quad .5 mL IM 6+ MO 2020-05-03 00:00:00 Completed [facility] Influenza Virus Vaccine Quad .5 mL IM 6+ MO 2020-05-03 00:00:00 Completed [facility] Influenza Virus Vaccine Quad .5 mL IM 6+ MO 2020-05-03 00:00:00 Completed [facility] Influenza Virus Vaccine Quad .5 mL IM 6+ MO 2020-05-03 00:00:00 Completed [facility] Influenza Virus Vaccine Quad .5 mL IM 6+ MO 2020-05-03 00:00:00 Completed [facility] Influenza Virus Vaccine Quad .5 mL IM 6+ MO 2020-05-03 00:00:00 Completed [facility] Influenza Virus Vaccine Quad .5 mL IM 6+ MO 2020-05-03 00:00:00 Completed [facility] Influenza Virus Vaccine Quad .5 mL IM 6+ MO 2020-05-03 00:00:00 Completed [facility] Influenza Virus Vaccine Quad .5 mL IM 6+ MO 2020-05-03 00:00:00 Completed [facility] Influenza Virus Vaccine Quad .5 mL IM 6+ MO 2020-05-03 00:00:00 Completed [facility] Influenza Virus Vaccine Quad .5 mL IM 6+ MO 2020-05-03 00:00:00 Completed [facility] Influenza Virus Vaccine Quad .5 mL IM 6+ MO 2020-05-03 00:00:00 Completed [facility] Influenza Virus Vaccine Quad .5 mL IM 6+ MO 2020-05-03 00:00:00 Completed [facility] Influenza Virus Vaccine Quad .5 mL IM 6+ MO 2020-05-03 00:00:00 Completed [facility] Influenza Virus Vaccine Quad .5 mL IM 6+ MO 2020-05-03 00:00:00 Completed [facility] Influenza Virus Vaccine Quad .5 mL IM 6+ MO 2020-05-03 00:00:00 Completed [facility] Influenza Virus Vaccine Quad .5 mL IM 6+ MO 2020-05-03 00:00:00 Completed [facility] Influenza Virus Vaccine Quad .5 mL IM 6+ MO 2020-05-03 00:00:00 Completed [facility] Influenza Virus Vaccine Quad .5 mL IM 6+ MO 2020-05-03 00:00:00 Completed [facility] Influenza Virus Vaccine Quad .5 mL IM 6+ MO 2020-05-03 00:00:00 Completed [facility] Influenza Virus Vaccine Quad .5 mL IM 6+ MO 2020-05-03 00:00:00 Completed [facility] Influenza Virus Vaccine Quad .5 mL IM 6+ MO 2020-05-03 00:00:00 Completed [facility] Influenza Virus Vaccine Quad .5 mL IM 6+ MO (FLUZONE/FLULAVAL/F LUARIX) 2020-05-03 00:00:00 Completed [facility] Influenza Virus Vaccine Quad .5 mL IM 6+ MO (FLUZONE/FLULAVAL/F LUARIX) 2020-05-03 00:00:00 Completed [facility] Influenza Virus Vaccine Quad .5 mL IM 6+ MO (FLUZONE/FLULAVAL/F LUARIX) 2020-05-03 00:00:00 Completed [facility] Influenza Virus Vaccine Quad .5 mL IM 6+ MO (FLUZONE/FLULAVAL/F LUARIX) 2020-05-03 00:00:00 Completed [employer] Vaccine Quad .5 mL IM 6+ MO 2019-06-14 00:00:00 Completed [facility] Influenza Virus Vaccine Quad .5 mL IM 6+ MO 2019-06-14 00:00:00 Completed [facility] Influenza Virus Vaccine Quad .5 mL IM 6+ MO 2019-06-14 00:00:00 Completed [facility] Influenza Virus Vaccine Quad .5 mL IM 6+ MO 2019-06-14 00:00:00 Completed [facility] Influenza Virus Vaccine Quad .5 mL IM 6+ MO 2019-06-14 00:00:00 Completed [facility] Influenza Virus Vaccine Quad .5 mL IM 6+ MO 2019-06-14 00:00:00 Completed [facility] Influenza Virus Vaccine Quad .5 mL IM 6+ MO 2019-06-14 00:00:00 Completed [facility] Influenza Virus Vaccine Quad .5 mL IM 6+ MO 2019-06-14 00:00:00 Completed [facility] Influenza Virus Vaccine Quad .5 mL IM 6+ MO 2019-06-14 00:00:00 Completed [facility] Influenza Virus Vaccine Quad .5 mL IM 6+ MO 2019-06-14 00:00:00 Completed [facility] Influenza Virus Vaccine Quad .5 mL IM 6+ MO 2019-06-14 00:00:00 Completed [facility] Influenza Virus Vaccine Quad .5 mL IM 6+ MO 2019-06-14 00:00:00 Completed [facility] Influ[employer] Virus Vaccine Quad .5 mL IM 6+ MO 2019-06-14 00:00:00 Completed [facility] Influenza Virus Vaccine Quad .5 mL IM 6+ MO 2019-06-14 00:00:00 Completed [facility] Influenza Virus Vaccine Quad .5 mL IM 6+ MO 2019-06-14 00:00:00 Completed [facility] Influenza Virus Vaccine Quad .5 mL IM 6+ MO 2019-06-14 00:00:00 Completed [facility] Influenza Virus Vaccine Quad .5 mL IM 6+ MO 2019-06-14 00:00:00 Completed [facility] Influenza Virus Vaccine Quad .5 mL IM 6+ MO 2019-06-14 00:00:00 Completed [facility] Influenza Virus Vaccine Quad .5 mL IM 6+ MO 2019-06-14 00:00:00 Completed [facility] Influenza Virus Vaccine Quad .5 mL IM 6+ MO 2019-06-14 00:00:00 Completed [facility] Influenza Virus Vaccine Quad .5 mL IM 6+ MO 2019-06-14 00:00:00 Completed [facility] Influenza Virus Vaccine Quad .5 mL IM 6+ MO 2019-06-14 00:00:00 Completed [facility] Influenza Virus Vaccine Quad .5 mL IM 6+ MO 2019-06-14 00:00:00 Completed [facility] Influenza Virus Vaccine Quad .5 mL IM 6+ MO 2019-06-14 00:00:00 Completed [facility] Influenza Virus Vaccine Quad .5 mL IM 6+ MO 2019-06-14 00:00:00 Completed [facility] Influenza Virus Vaccine Quad .5 mL IM 6+ MO 2019-06-14 00:00:00 Completed [facility] Influenza Virus Vaccine Quad .5 mL IM 6+ MO 2019-06-14 00:00:00 Completed [facility] Influenza Virus Vaccine Quad .5 mL IM 6+ MO 2019-06-14 00:00:00 Completed [facility] Influenza Virus Vaccine Quad .5 mL IM 6+ MO 2019-06-14 00:00:00 Completed [facility] Influ[employer] Virus Vaccine Quad .5 mL IM 6+ MO 2019-06-14 00:00:00 Completed [facility] Influenza Virus Vaccine Quad .5 mL IM 6+ MO 2019-06-14 00:00:00 Completed [facility] Influenza Virus Vaccine Quad .5 mL IM 6+ MO 2019-06-14 00:00:00 Completed [facility] Influenza Virus Vaccine Quad .5 mL IM 6+ MO 2019-06-14 00:00:00 Completed [facility] Influenza Virus Vaccine Quad .5 mL IM 6+ MO 2019-06-14 00:00:00 Completed [facility] Influenza Virus Vaccine Quad .5 mL IM 6+ MO 2019-06-14 00:00:00 Completed [facility] Influenza Virus Vaccine Quad .5 mL IM 6+ MO 2019-06-14 00:00:00 Completed [facility] Influenza Virus Vaccine Quad .5 mL IM 6+ MO 2019-06-14 00:00:00 Completed [facility] Influenza Virus Vaccine Quad .5 mL IM 6+ MO 2019-06-14 00:00:00 Completed [facility] Influenza Virus Vaccine Quad .5 mL IM 6+ MO 2019-06-14 00:00:00 Completed [facility] Influ[employer] Virus Vaccine Quad .5 mL IM 6+ MO 2019-06-14 00:00:00 Completed [facility] Influ[employer] Virus Vaccine Quad .5 mL IM 6+ MO 2019-06-14 00:00:00 Completed [facility] Influenza Virus Vaccine Quad .5 mL IM 6+ MO 2019-06-14 00:00:00 Completed [facility] Influenza Virus Vaccine Quad .5 mL IM 6+ MO 2019-06-14 00:00:00 Completed [facility] Influenza Virus Vaccine Quad .5 mL IM 6+ MO 2019-06-14 00:00:00 Completed [facility] Influenza Virus Vaccine Quad .5 mL IM 6+ MO 2019-06-14 00:00:00 Completed [facility] Influenza Virus Vaccine Quad .5 mL IM 6+ MO 2019-06-14 00:00:00 Completed [facility] Influ[employer] Virus Vaccine Quad .5 mL IM 6+ MO 2019-06-14 00:00:00 Completed [facility] Influenza Virus Vaccine Quad .5 mL IM 6+ MO 2019-06-14 00:00:00 Completed [facility] Influenza Virus Vaccine Quad .5 mL IM 6+ MO 2019-06-14 00:00:00 Completed [facility] Influenza Virus Vaccine Quad .5 mL IM 6+ MO 2019-06-14 00:00:00 Completed [facility] Influ[employer] Virus Vaccine Quad .5 mL IM 6+ MO 2019-06-14 00:00:00 Completed [facility] Influenza Virus Vaccine Quad .5 mL IM 6+ MO 2019-06-14 00:00:00 Completed [facility] Influ[employer] Virus Vaccine Quad .5 mL IM 6+ MO 2019-06-14 00:00:00 Completed [facility] Influenza Virus Vaccine Quad .5 mL IM 6+ MO 2019-06-14 00:00:00 Completed [facility] Influenza Virus Vaccine Quad .5 mL IM 6+ MO 2019-06-14 00:00:00 Completed [facility] Influenza Virus Vaccine Quad .5 mL IM 6+ MO 2019-06-14 00:00:00 Completed [facility] Influenza Virus Vaccine Quad .5 mL IM 6+ MO 2019-06-14 00:00:00 Completed [facility] Influenza Virus Vaccine Quad .5 mL IM 6+ MO 2019-06-14 00:00:00 Completed [facility] Influenza Virus Vaccine Quad .5 mL IM 6+ MO 2019-06-14 00:00:00 Completed [facility] Influenza Virus Vaccine Quad .5 mL IM 6+ MO 2019-06-14 00:00:00 Completed [facility] Influenza Virus Vaccine Quad .5 mL IM 6+ MO 2019-06-14 00:00:00 Completed [facility] Influenza Virus Vaccine Quad .5 mL IM 6+ MO 2019-06-14 00:00:00 Completed [facility] Influenza Virus Vaccine Quad .5 mL IM 6+ MO 2019-06-14 00:00:00 Completed [facility] Influenza Virus Vaccine Quad .5 mL IM 6+ MO 2019-06-14 00:00:00 Completed [facility] Influenza Virus Vaccine Quad .5 mL IM 6+ MO 2019-06-14 00:00:00 Completed [facility] Influenza Virus Vaccine Quad .5 mL IM 6+ MO 2019-06-14 00:00:00 Completed [facility] Influenza Virus Vaccine Quad .5 mL IM 6+ MO (FLUZONE/FLULAVAL/F LUARIX) 2019-06-14 00:00:00 Completed [facility] Influenza Virus Vaccine Quad .5 mL IM 6+ MO (FLUZONE/FLULAVAL/F LUARIX) 2019-06-14 00:00:00 Completed [facility] Influenza Virus Vaccine Quad .5 mL IM 6+ MO (FLUZONE/FLULAVAL/F LUARIX) 2019-06-14 00:00:00 Completed [facility] Influenza Virus Vaccine Quad .5 mL IM 6+ MO (FLUZONE/FLULAVAL/F LUARIX) 2019-06-14 00:00:00 Completed [facility] Influenza Virus Vaccine Quad IM 3+ 2018-07-07 00:00:00 Completed [facility] Influenza Virus Vaccine Quad IM 3+ YRS 2018-07-07 00:00:00 Completed [facility] Influenza Virus Vaccine Quad IM 3+ 2018-07-07 00:00:00 Completed [facility] Influenza Virus Vaccine Quad IM 3+ 2018-07-07 00:00:00 Completed [facility] Influenza Virus Vaccine Quad IM 3+ YRS 2018-07-07 00:00:00 Completed [facility] Influ[employer] Virus Vaccine Quad IM 3+ 2018-07-07 00:00:00 Completed [facility] Influenza Virus Vaccine Quad IM 3+ YRS 2018-07-07 00:00:00 Completed [facility] Influenza Virus Vaccine Quad IM 3+ YRS 2018-07-07 00:00:00 Completed [facility] Influenza Virus Vaccine Quad IM 3+ YRS 2018-07-07 00:00:00 Completed [facility] Influenza Virus Vaccine Quad IM 3+ YRS 2018-07-07 00:00:00 Completed [facility] Influenza Virus Vaccine Quad IM 3+ 2018-07-07 00:00:00 Completed [facility] Influenza Virus Vaccine Quad IM 3+ YRS 2018-07-07 00:00:00 Completed [facility] Influenza Virus Vaccine Quad IM 3+ YRS 2018-07-07 00:00:00 Completed [facility] Influenza Virus Vaccine Quad IM 3+ YRS 2018-07-07 00:00:00 Completed [facility] Influenza Virus Vaccine Quad IM 3+ YRS 2018-07-07 00:00:00 Completed [facility] Influenza Virus Vaccine Quad IM 3+ 2018-07-07 00:00:00 Completed [facility] Influ[employer] Virus Vaccine Quad IM 3+ 2018-07-07 00:00:00 Completed [facility] Influ[employer] Virus Vaccine Quad IM 3+ 2018-07-07 00:00:00 Completed [facility] Influ[employer] Virus Vaccine Quad IM 3+ 2018-07-07 00:00:00 Completed [facility] Influ[employer] Virus Vaccine Quad IM 3+ 2018-07-07 00:00:00 Completed [facility] Influ[employer] Vaccine Quad IM 3+ 2018-07-07 00:00:00 Completed [facility] Influ[employer] Virus Vaccine Quad IM 32018-07-07 00:00:00 Completed [facility] Influ[employer] Virus Vaccine Quad IM 3+ 2018-07-07 00:00:00 Completed [facility] Influ[employer] Vaccine Quad IM 3+ 2018-07-07 00:00:00 Completed [facility] Influ[employer] Virus Vaccine Quad IM 3+ 2018-07-07 00:00:00 Completed [facility] Influenza Virus Vaccine Quad IM 3+ YRS 2018-07-07 00:00:00 Completed [facility] Influenza Virus Vaccine Quad IM 3+ 2018-07-07 00:00:00 Completed [facility] Influenza Virus Vaccine Quad IM 3+ YRS 2018-07-07 00:00:00 Completed [facility] Influenza Virus Vaccine Quad IM 3+ YRS 2018-07-07 00:00:00 Completed [facility] Influenza Virus Vaccine Quad IM 3+ 2018-07-07 00:00:00 Completed [facility] Influenza Virus Vaccine Quad IM 3+ YRS 2018-07-07 00:00:00 Completed [facility] Influenza Virus Vaccine Quad IM 3+ YRS 2018-07-07 00:00:00 Completed [facility] Influenza Virus Vaccine Quad IM 3+ YRS 2018-07-07 00:00:00 Completed [facility] Influenza Virus Vaccine Quad IM 3+ YRS 2018-07-07 00:00:00 Completed [facility] Influenza Virus Vaccine Quad IM 3+ YRS 2018-07-07 00:00:00 Completed [facility] Influenza Virus Vaccine Quad IM 3+ YRS 2018-07-07 00:00:00 Completed [facility] Influenza Virus Vaccine Quad IM 3+ YRS 2018-07-07 00:00:00 Completed [facility] Influ[employer] Virus Vaccine Quad IM 3+ YRS 2018-07-07 00:00:00 Completed [facility] Influenza Virus Vaccine Quad IM 3+ YRS 2018-07-07 00:00:00 Completed [facility] Influ[employer] Virus Vaccine Quad IM 3+ YRS 2018-07-07 00:00:00 Completed [facility] Influenza Virus Vaccine Quad IM 3+ YRS 2018-07-07 00:00:00 Completed [facility] Influenza Virus Vaccine Quad IM 3+ YRS 2018-07-07 00:00:00 Completed [facility] Influenza Virus Vaccine Quad IM 3+ YRS 2018-07-07 00:00:00 Completed [facility] Influenza Virus Vaccine Quad IM 3+ YRS 2018-07-07 00:00:00 Completed [facility] Influenza Virus Vaccine Quad IM 3+ YRS 2018-07-07 00:00:00 Completed [facility] Influenza Virus Vaccine Quad IM 3+ YRS 2018-07-07 00:00:00 Completed [facility] Influenza Virus Vaccine Quad IM 3+ YRS 2018-07-07 00:00:00 Completed [facility] Influenza Virus Vaccine Quad IM 3+ YRS 2018-07-07 00:00:00 Completed [facility] Influenza Virus Vaccine Quad IM 3+ YRS 2018-07-07 00:00:00 Completed [facility] Influenza Virus Vaccine Quad IM 3+ YRS 2018-07-07 00:00:00 Completed [facility] Influenza Virus Vaccine Quad IM 3+ YRS 2018-07-07 00:00:00 Completed [facility] Influenza Virus Vaccine Quad IM 3+ YRS 2018-07-07 00:00:00 Completed [facility] Influenza Virus Vaccine Quad IM 3+ YRS 2018-07-07 00:00:00 Completed [facility] Influenza Virus Vaccine Quad IM 3+ YRS 2018-07-07 00:00:00 Completed [facility] Influenza Virus Vaccine Quad IM 3+ YRS 2018-07-07 00:00:00 Completed [facility] Influenza Virus Vaccine Quad IM 3+ YRS 2018-07-07 00:00:00 Completed [facility] Influenza Virus Vaccine Quad IM 3+ YRS 2018-07-07 00:00:00 Completed [facility] Influenza Virus Vaccine Quad IM 3+ YRS 2018-07-07 00:00:00 Completed [facility] Influenza Virus Vaccine Quad IM 3+ YRS 2018-07-07 00:00:00 Completed [facility] Influenza Virus Vaccine Quad IM 3+ 2018-07-07 00:00:00 Completed [facility] Influenza Virus Vaccine Quad IM 3+ 2018-07-07 00:00:00 Completed [facility] Influenza Virus Vaccine Quad IM 3+ 2018-07-07 00:00:00 Completed [facility] Influenza Virus Vaccine Quad IM 3+ 2018-07-07 00:00:00 Completed [facility] Influenza Virus Vaccine Quad IM 3+ 2018-07-07 00:00:00 Completed [facility] Influenza Virus Vaccine Quad IM 3+ 2018-07-07 00:00:00 Completed [facility] Influenza Virus Vaccine Quad IM 3+ 2018-07-07 00:00:00 Completed [facility] Influenza Virus Vaccine Quad IM 3+ YRS 2018-07-07 00:00:00 Completed [facility] Influenza Virus Vaccine Quad IM 3+ 2018-07-07 00:00:00 Completed [facility] Influenza Virus Vaccine Quad IM 3+ 2018-07-07 00:00:00 Completed [facility] Influenza Virus Vaccine Quad IM 3+ YRS 2018-07-07 00:00:00 Completed [facility] Td 2017-08-01 00:00:00 Completed [facility] Td 2017-08-01 00:00:00 Completed [facility] Td 2017-08-01 00:00:00 Completed [facility] Td 2017-08-01 00:00:00 Completed [facility] Td 2017-08-01 00:00:00 Completed [facility] Td 2017-08-01 00:00:00 Completed [facility] Td 2017-08-01 00:00:00 Completed [facility] Td 2017-08-01 00:00:00 Completed [facility] Td 2017-08-01 00:00:00 Completed [facility] Td 2017-08-01 00:00:00 Completed [facility] Td 2017-08-01 00:00:00 Completed [facility] Td 2017-08-01 00:00:00 Completed [facility] Td 2017-08-01 00:00:00 Completed [facility] Td 2017-08-01 00:00:00 Completed [facility] Td 2017-08-01 00:00:00 Completed [facility] Td 2017-08-01 00:00:00 Completed [facility] Td 2017-08-01 00:00:00 Completed [facility] Td 2017-08-01 00:00:00 Completed [facility] Td 2017-08-01 00:00:00 Completed [facility] Td 2017-08-01 00:00:00 Completed [facility] Td 2017-08-01 00:00:00 Completed [facility] Td 2017-08-01 00:00:00 Completed [facility] Td 2017-08-01 00:00:00 Completed [facility] Td 2017-08-01 00:00:00 Completed [facility] Td 2017-08-01 00:00:00 Completed [facility] Td 2017-08-01 00:00:00 Completed [facility] Td 2017-08-01 00:00:00 Completed [facility] Td 2017-08-01 00:00:00 Completed [facility] Td 2017-08-01 00:00:00 Completed [facility] Td 2017-08-01 00:00:00 Completed [facility] Td 2017-08-01 00:00:00 Completed [facility] Td 2017-08-01 00:00:00 Completed [facility] Td 2017-08-01 00:00:00 Completed [facility] Td 2017-08-01 00:00:00 Completed [facility] Td 2017-08-01 00:00:00 Completed [facility] Td 2017-08-01 00:00:00 Completed [facility] Td 2017-08-01 00:00:00 Completed [facility] Td 2017-08-01 00:00:00 Completed [facility] Td 2017-08-01 00:00:00 Completed [facility] Td 2017-08-01 00:00:00 Completed [facility] Td 2017-08-01 00:00:00 Completed [facility] Td 2017-08-01 00:00:00 Completed [facility] Td 2017-08-01 00:00:00 Completed [facility] Td 2017-08-01 00:00:00 Completed [facility] Td 2017-08-01 00:00:00 Completed [facility] Td 2017-08-01 00:00:00 Completed [facility] TD, NOS 2017-08-01 00:00:00 Completed [facility] TD, NOS 2017-08-01 00:00:00 Completed [facility] TD, NOS 2017-08-01 00:00:00 Completed [facility] TD, NOS 2017-08-01 00:00:00 Completed [facility] TD, NOS 2017-08-01 00:00:00 Completed [facility] TD, NOS 2017-08-01 00:00:00 Completed [facility] TD, NOS 2017-08-01 00:00:00 Completed [facility] TD, NOS 2017-08-01 00:00:00 Completed [facility] TD, NOS 2017-08-01 00:00:00 Completed [facility] TD, NOS 2017-08-01 00:00:00 Completed [facility] TD, NOS 2017-08-01 00:00:00 Completed [facility] TD, NOS 2017-08-01 00:00:00 Completed [facility] TD, NOS 2017-08-01 00:00:00 Completed [facility] TD, NOS 2017-08-01 00:00:00 Completed [facility] TD, NOS 2017-08-01 00:00:00 Completed [facility] TD, NOS 2017-08-01 00:00:00 Completed [facility] TD, NOS 2017-08-01 00:00:00 Completed [facility] TD, NOS 2017-08-01 00:00:00 Completed [facility] TD, NOS 2017-08-01 00:00:00 Completed [facility] TD, NOS 2017-08-01 00:00:00 Completed [facility] TD, NOS 2017-08-01 00:00:00 Completed [facility] TD, NOS 2017-08-01 00:00:00 Completed [facility] TD, NOS 2017-08-01 00:00:00 Completed [facility] TD, NOS 2017-08-01 00:00:00 Completed [facility] Influenza Virus Vaccine Quad IM 3+ YRS 2016-05-22 00:00:00 Completed [facility] Influenza Virus Vaccine Quad IM 3+ YRS 2016-05-22 00:00:00 Completed [facility] Influenza Virus Vaccine Quad IM 3+ YRS 2016-05-22 00:00:00 Completed [facility] Influenza Virus Vaccine Quad IM 3+ YRS 2016-05-22 00:00:00 Completed [facility] Influenza Virus Vaccine Quad IM 3+ YRS 2016-05-22 00:00:00 Completed [facility] Influenza Virus Vaccine Quad IM 3+ YRS 2016-05-22 00:00:00 Completed [facility] Influenza Virus Vaccine Quad IM 3+ YRS 2016-05-22 00:00:00 Completed [facility] Influenza Virus Vaccine Quad IM 3+ YRS 2016-05-22 00:00:00 Completed [facility] Influenza Virus Vaccine Quad IM 3+ YRS 2016-05-22 00:00:00 Completed [facility] Influenza Virus Vaccine Quad IM 3+ YRS 2016-05-22 00:00:00 Completed [facility] Influenza Virus Vaccine Quad IM 3+ YRS 2016-05-22 00:00:00 Completed [facility] Influenza Virus Vaccine Quad IM 3+ YRS 2016-05-22 00:00:00 Completed [facility] Influenza Virus Vaccine Quad IM 3+ YRS 2016-05-22 00:00:00 Completed [facility] Influenza Virus Vaccine Quad IM 3+ YRS 2016-05-22 00:00:00 Completed [facility] Influenza Virus Vaccine Quad IM 3+ YRS 2016-05-22 00:00:00 Completed [facility] Influenza Virus Vaccine Quad IM 3+ YRS 2016-05-22 00:00:00 Completed [facility] Influenza Virus Vaccine Quad IM 3+ YRS 2016-05-22 00:00:00 Completed [facility] Influenza Virus Vaccine Quad IM 3+ YRS 2016-05-22 00:00:00 Completed [facility] Influenza Virus Vaccine Quad IM 3+ YRS 2016-05-22 00:00:00 Completed [facility] Influenza Virus Vaccine Quad IM 3+ YRS 2016-05-22 00:00:00 Completed [facility] Influenza Virus Vaccine Quad IM 3+ YRS 2016-05-22 00:00:00 Completed [facility] Influenza Virus Vaccine Quad IM 3+ YRS 2016-05-22 00:00:00 Completed [facility] Influenza Virus Vaccine Quad IM 3+ YRS 2016-05-22 00:00:00 Completed [facility] Influenza Virus Vaccine Quad IM 3+ YRS 2016-05-22 00:00:00 Completed [facility] Influenza Virus Vaccine Quad IM 3+ YRS 2016-05-22 00:00:00 Completed [facility] Influenza Virus Vaccine Quad IM 3+ YRS 2016-05-22 00:00:00 Completed [facility] Influenza Virus Vaccine Quad IM 3+ YRS 2016-05-22 00:00:00 Completed [facility] Influenza Virus Vaccine Quad IM 3+ YRS 2016-05-22 00:00:00 Completed [facility] Influenza Virus Vaccine Quad IM 3+ YRS 2016-05-22 00:00:00 Completed [facility] Influenza Virus Vaccine Quad IM 3+ YRS 2016-05-22 00:00:00 Completed [facility] Influenza Virus Vaccine Quad IM 3+ YRS 2016-05-22 00:00:00 Completed [facility] Influenza Virus Vaccine Quad IM 3+ YRS 2016-05-22 00:00:00 Completed [facility] Influenza Virus Vaccine Quad IM 3+ YRS 2016-05-22 00:00:00 Completed [facility] Influenza Virus Vaccine Quad IM 3+ YRS 2016-05-22 00:00:00 Completed [facility] Influenza Virus Vaccine Quad IM 3+ YRS 2016-05-22 00:00:00 Completed [facility] Influenza Virus Vaccine Quad IM 3+ YRS 2016-05-22 00:00:00 Completed [facility] Influenza Virus Vaccine Quad IM 3+ YRS 2016-05-22 00:00:00 Completed [facility] Influenza Virus Vaccine Quad IM 3+ YRS 2016-05-22 00:00:00 Completed [facility] Influenza Virus Vaccine Quad IM 3+ YRS 2016-05-22 00:00:00 Completed [facility] Influenza Virus Vaccine Quad IM 3+ YRS 2016-05-22 00:00:00 Completed [facility] Influenza Virus Vaccine Quad IM 3+ YRS 2016-05-22 00:00:00 Completed [facility] Influenza Virus Vaccine Quad IM 3+ YRS 2016-05-22 00:00:00 Completed [facility] Influenza Virus Vaccine Quad IM 3+ YRS 2016-05-22 00:00:00 Completed [facility] Influenza Virus Vaccine Quad IM 3+ YRS 2016-05-22 00:00:00 Completed [facility] Influenza Virus Vaccine Quad IM 3+ YRS 2016-05-22 00:00:00 Completed [facility] Influenza Virus Vaccine Quad IM 3+ YRS 2016-05-22 00:00:00 Completed [facility] Influenza Virus Vaccine Quad IM 3+ YRS 2016-05-22 00:00:00 Completed [facility] Influenza Virus Vaccine Quad IM 3+ YRS 2016-05-22 00:00:00 Completed [facility] Influenza Virus Vaccine Quad IM 3+ YRS 2016-05-22 00:00:00 Completed [facility] Influenza Virus Vaccine Quad IM 3+ YRS 2016-05-22 00:00:00 Completed [facility] Influenza Virus Vaccine Quad IM 3+ YRS 2016-05-22 00:00:00 Completed [facility] Influenza Virus Vaccine Quad IM 3+ YRS 2016-05-22 00:00:00 Completed [facility] Influenza Virus Vaccine Quad IM 3+ YRS 2016-05-22 00:00:00 Completed [facility] Influenza Virus Vaccine Quad IM 3+ YRS 2016-05-22 00:00:00 Completed [facility] Influenza Virus Vaccine Quad IM 3+ YRS 2016-05-22 00:00:00 Completed [facility] Influenza Virus Vaccine Quad IM 3+ YRS 2016-05-22 00:00:00 Completed [facility] Influenza Virus Vaccine Quad IM 3+ YRS 2016-05-22 00:00:00 Completed [facility] Influenza Virus Vaccine Quad IM 3+ YRS 2016-05-22 00:00:00 Completed [facility] Influenza Virus Vaccine Quad IM 3+ YRS 2016-05-22 00:00:00 Completed [facility] Influenza Virus Vaccine Quad IM 3+ YRS 2016-05-22 00:00:00 Completed [facility] Influenza Virus Vaccine Quad IM 3+ YRS 2016-05-22 00:00:00 Completed [facility] Influenza Virus Vaccine Quad IM 3+ YRS 2016-05-22 00:00:00 Completed [facility] Influenza Virus Vaccine Quad IM 3+ YRS 2016-05-22 00:00:00 Completed [facility] Influenza Virus Vaccine Quad IM 3+ YRS 2016-05-22 00:00:00 Completed [facility] Influenza Virus Vaccine Quad IM 3+ YRS 2016-05-22 00:00:00 Completed [facility] Influenza Virus Vaccine Quad IM 3+ YRS 2016-05-22 00:00:00 Completed [facility] Influenza Virus Vaccine Quad IM 3+ YRS 2016-05-22 00:00:00 Completed [facility] Influenza Virus Vaccine Quad IM 3+ YRS 2016-05-22 00:00:00 Completed [facility] Influenza Virus Vaccine Quad IM 3+ YRS 2016-05-22 00:00:00 Completed [facility] Influenza Virus Vaccine Quad IM 3+ YRS 2016-05-22 00:00:00 Completed [facility] Pneumococcal Polysaccharide, PPSV23 (PNEUMOVAX) 2015-08-31 00:00:00 Completed [facility] Pneumococcal Polysaccharide, PPSV23 (PNEUMOVAX) 2015-08-31 00:00:00 Completed [facility] Pneumococcal Polysaccharide, PPSV23 (PNEUMOVAX) 2015-08-31 00:00:00 Completed [facility] Pneumococcal Polysaccharide, PPSV23 (PNEUMOVAX) 2015-08-31 00:00:00 Completed [facility] Pneumococcal Polysaccharide, PPSV23 (PNEUMOVAX) 2015-08-31 00:00:00 Completed [facility] Pneumococcal Polysaccharide, PPSV23 (PNEUMOVAX) 2015-08-31 00:00:00 Completed [facility] Pneumococcal Polysaccharide, PPSV23 (PNEUMOVAX) 2015-08-31 00:00:00 Completed [facility] Pneumococcal Polysaccharide, PPSV23 (PNEUMOVAX) 2015-08-31 00:00:00 Completed [facility] Pneumococcal Polysaccharide, PPSV23 (PNEUMOVAX) 2015-08-31 00:00:00 Completed [facility] Pneumococcal Polysaccharide, PPSV23 (PNEUMOVAX) 2015-08-31 00:00:00 Completed [facility] Pneumococcal Polysaccharide, PPSV23 (PNEUMOVAX) 2015-08-31 00:00:00 Completed [facility] Pneumococcal Polysaccharide, PPSV23 (PNEUMOVAX) 2015-08-31 00:00:00 Completed [facility] Pneumococcal Polysaccharide, PPSV23 (PNEUMOVAX) 2015-08-31 00:00:00 Completed [facility] Pneumococcal Polysaccharide, PPSV23 (PNEUMOVAX) 2015-08-31 00:00:00 Completed [facility] Pneumococcal Polysaccharide, PPSV23 (PNEUMOVAX) 2015-08-31 00:00:00 Completed [facility] Pneumococcal Polysaccharide, PPSV23 (PNEUMOVAX) 2015-08-31 00:00:00 Completed [facility] Pneumococcal Polysaccharide, PPSV23 (PNEUMOVAX) 2015-08-31 00:00:00 Completed [facility] Pneumococcal Polysaccharide, PPSV23 (PNEUMOVAX) 2015-08-31 00:00:00 Completed [facility] Pneumococcal Polysaccharide, PPSV23 (PNEUMOVAX) 2015-08-31 00:00:00 Completed [facility] Pneumococcal Polysaccharide, PPSV23 (PNEUMOVAX) 2015-08-31 00:00:00 Completed [facility] Pneumococcal Polysaccharide, PPSV23 (PNEUMOVAX) 2015-08-31 00:00:00 Completed [facility] Pneumococcal Polysaccharide, PPSV23 (PNEUMOVAX) 2015-08-31 00:00:00 Completed [facility] Pneumococcal Polysaccharide, PPSV23 (PNEUMOVAX) 2015-08-31 00:00:00 Completed [facility] Pneumococcal Polysaccharide, PPSV23 (PNEUMOVAX) 2015-08-31 00:00:00 Completed [facility] Pneumococcal Polysaccharide, PPSV23 (PNEUMOVAX) 2015-08-31 00:00:00 Completed [facility] Pneumococcal Polysaccharide, PPSV23 (PNEUMOVAX) 2015-08-31 00:00:00 Completed [facility] Pneumococcal Polysaccharide, PPSV23 (PNEUMOVAX) 2015-08-31 00:00:00 Completed [facility] Pneumococcal Polysaccharide, PPSV23 (PNEUMOVAX) 2015-08-31 00:00:00 Completed [facility] Pneumococcal Polysaccharide, PPSV23 (PNEUMOVAX) 2015-08-31 00:00:00 Completed [facility] Pneumococcal Polysaccharide, PPSV23 (PNEUMOVAX) 2015-08-31 00:00:00 Completed [facility] Pneumococcal Polysaccharide, PPSV23 (PNEUMOVAX) 2015-08-31 00:00:00 Completed [facility] Pneumococcal Polysaccharide, PPSV23 (PNEUMOVAX) 2015-08-31 00:00:00 Completed [facility] Pneumococcal Polysaccharide, PPSV23 (PNEUMOVAX) 2015-08-31 00:00:00 Completed [facility] Pneumococcal Polysaccharide, PPSV23 (PNEUMOVAX) 2015-08-31 00:00:00 Completed [facility] Pneumococcal Polysaccharide, PPSV23 (PNEUMOVAX) 2015-08-31 00:00:00 Completed [facility] Pneumococcal Polysaccharide, PPSV23 (PNEUMOVAX) 2015-08-31 00:00:00 Completed [facility] Pneumococcal Polysaccharide, PPSV23 (PNEUMOVAX) 2015-08-31 00:00:00 Completed [facility] Pneumococcal Polysaccharide, PPSV23 (PNEUMOVAX) 2015-08-31 00:00:00 Completed [facility] Pneumococcal Polysaccharide, PPSV23 (PNEUMOVAX) 2015-08-31 00:00:00 Completed [facility] Pneumococcal Polysaccharide, PPSV23 (PNEUMOVAX) 2015-08-31 00:00:00 Completed [facility] Pneumococcal Polysaccharide, PPSV23 (PNEUMOVAX) 2015-08-31 00:00:00 Completed [facility] Pneumococcal Polysaccharide, PPSV23 (PNEUMOVAX) 2015-08-31 00:00:00 Completed [facility] Pneumococcal Polysaccharide, PPSV23 (PNEUMOVAX) 2015-08-31 00:00:00 Completed [facility] Pneumococcal Polysaccharide, PPSV23 (PNEUMOVAX) 2015-08-31 00:00:00 Completed [facility] Pneumococcal Polysaccharide, PPSV23 (PNEUMOVAX) 2015-08-31 00:00:00 Completed [facility] Pneumococcal Polysaccharide, PPSV23 (PNEUMOVAX) 2015-08-31 00:00:00 Completed [facility] Pneumococcal Polysaccharide, PPSV23 (PNEUMOVAX) 2015-08-31 00:00:00 Completed [facility] Pneumococcal Polysaccharide, PPSV23 (PNEUMOVAX) 2015-08-31 00:00:00 Completed [facility] Pneumococcal Polysaccharide, PPSV23 (PNEUMOVAX) 2015-08-31 00:00:00 Completed [facility] Pneumococcal Polysaccharide, PPSV23 (PNEUMOVAX) 2015-08-31 00:00:00 Completed [facility] Pneumococcal Polysaccharide, PPSV23 (PNEUMOVAX) 2015-08-31 00:00:00 Completed [facility] Pneumococcal Polysaccharide, PPSV23 (PNEUMOVAX) 2015-08-31 00:00:00 Completed [facility] Pneumococcal Polysaccharide, PPSV23 (PNEUMOVAX) 2015-08-31 00:00:00 Completed [facility] Pneumococcal Polysaccharide, PPSV23 (PNEUMOVAX) 2015-08-31 00:00:00 Completed [facility] Pneumococcal Polysaccharide, PPSV23 (PNEUMOVAX) 2015-08-31 00:00:00 Completed [facility] Pneumococcal Polysaccharide, PPSV23 (PNEUMOVAX) 2015-08-31 00:00:00 Completed [facility] Pneumococcal Polysaccharide, PPSV23 (PNEUMOVAX) 2015-08-31 00:00:00 Completed [facility] Pneumococcal Polysaccharide, PPSV23 (PNEUMOVAX) 2015-08-31 00:00:00 Completed [facility] Pneumococcal Polysaccharide, PPSV23 (PNEUMOVAX) 2015-08-31 00:00:00 Completed [facility] Pneumococcal Polysaccharide, PPSV23 (PNEUMOVAX) 2015-08-31 00:00:00 Completed [facility] Pneumococcal Polysaccharide, PPSV23 (PNEUMOVAX) 2015-08-31 00:00:00 Completed [facility] Pneumococcal Polysaccharide, PPSV23 (PNEUMOVAX) 2015-08-31 00:00:00 Completed [facility] Pneumococcal Polysaccharide, PPSV23 (PNEUMOVAX) 2015-08-31 00:00:00 Completed [facility] Pneumococcal Polysaccharide, PPSV23 (PNEUMOVAX) 2015-08-31 00:00:00 Completed [facility] Pneumococcal Polysaccharide, PPSV23 (PNEUMOVAX) 2015-08-31 00:00:00 Completed [facility] Pneumococcal Polysaccharide, PPSV23 (PNEUMOVAX) 2015-08-31 00:00:00 Completed [facility] Pneumococcal Polysaccharide, PPSV23 (PNEUMOVAX) 2015-08-31 00:00:00 Completed [facility] Pneumococcal Polysaccharide, PPSV23 (PNEUMOVAX) 2015-08-31 00:00:00 Completed [facility] Pneumococcal Polysaccharide, PPSV23 (PNEUMOVAX) 2015-08-31 00:00:00 Completed [facility] Pneumococcal Polysaccharide, PPSV23 (PNEUMOVAX) 2015-08-31 00:00:00 Completed [facility] Influenza Virus Vaccine Quad IM Multi-dose 6+ MO 2015-05-25 00:00:00 Completed [facility] Influenza Virus Vaccine Quad IM Multi-dose 6+ MO 2015-05-25 00:00:00 Completed [facility] Influenza Virus Vaccine Quad IM Multi-dose 6+ MO 2015-05-25 00:00:00 Completed [facility] Influenza Virus Vaccine Quad IM Multi-dose 6+ MO 2015-05-25 00:00:00 Completed [facility] Influenza Virus Vaccine Quad IM Multi-dose 6+ MO 2015-05-25 00:00:00 Completed [facility] Influenza Virus Vaccine Quad IM Multi-dose 6+ MO 2015-05-25 00:00:00 Completed [facility] Influenza Virus Vaccine Quad IM Multi-dose 6+ MO 2015-05-25 00:00:00 Completed [facility] Influenza Virus Vaccine Quad IM Multi-dose 6+ MO 2015-05-25 00:00:00 Completed [facility] Influenza Virus Vaccine Quad IM Multi-dose 6+ MO 2015-05-25 00:00:00 Completed [facility] Influenza Virus Vaccine Quad IM Multi-dose 6+ MO 2015-05-25 00:00:00 Completed [facility] Influenza Virus Vaccine Quad IM Multi-dose 6+ MO 2015-05-25 00:00:00 Completed [facility] Influenza Virus Vaccine Quad IM Multi-dose 6+ MO 2015-05-25 00:00:00 Completed [facility] Influenza Virus Vaccine Quad IM Multi-dose 6+ MO 2015-05-25 00:00:00 Completed [facility] Influenza Virus Vaccine Quad IM Multi-dose 6+ MO 2015-05-25 00:00:00 Completed [facility] Influenza Virus Vaccine Quad IM Multi-dose 6+ MO 2015-05-25 00:00:00 Completed [facility] Influenza Virus Vaccine Quad IM Multi-dose 6+ MO 2015-05-25 00:00:00 Completed [facility] Influenza Virus Vaccine Quad IM Multi-dose 6+ MO 2015-05-25 00:00:00 Completed [facility] Influenza Virus Vaccine Quad IM Multi-dose 6+ MO 2015-05-25 00:00:00 Completed [facility] Influenza Virus Vaccine Quad IM Multi-dose 6+ MO 2015-05-25 00:00:00 Completed [facility] Influenza Virus Vaccine Quad IM Multi-dose 6+ MO 2015-05-25 00:00:00 Completed [facility] Influenza Virus Vaccine Quad IM Multi-dose 6+ MO 2015-05-25 00:00:00 Completed [facility] Influenza Virus Vaccine Quad IM Multi-dose 6+ MO 2015-05-25 00:00:00 Completed [facility] Influenza Virus Vaccine Quad IM Multi-dose 6+ MO 2015-05-25 00:00:00 Completed [facility] Influenza Virus Vaccine Quad IM Multi-dose 6+ MO 2015-05-25 00:00:00 Completed [facility] Influenza Virus Vaccine Quad IM Multi-dose 6+ MO 2015-05-25 00:00:00 Completed [facility] Influenza Virus Vaccine Quad IM Multi-dose 6+ MO 2015-05-25 00:00:00 Completed [facility] Influenza Virus Vaccine Quad IM Multi-dose 6+ MO 2015-05-25 00:00:00 Completed [facility] Influenza Virus Vaccine Quad IM Multi-dose 6+ MO 2015-05-25 00:00:00 Completed [facility] Influenza Virus Vaccine Quad IM Multi-dose 6+ MO 2015-05-25 00:00:00 Completed [facility] Influenza Virus Vaccine Quad IM Multi-dose 6+ MO 2015-05-25 00:00:00 Completed [facility] Influenza Virus Vaccine Quad IM Multi-dose 6+ MO 2015-05-25 00:00:00 Completed [facility] Influenza Virus Vaccine Quad IM Multi-dose 6+ MO 2015-05-25 00:00:00 Completed [facility] Influenza Virus Vaccine Quad IM Multi-dose 6+ MO 2015-05-25 00:00:00 Completed [facility] Influenza Virus Vaccine Quad IM Multi-dose 6+ MO 2015-05-25 00:00:00 Completed [facility] Influenza Virus Vaccine Quad IM Multi-dose 6+ MO 2015-05-25 00:00:00 [facility] [facility]ine Quad IM Multi-dose 6+ MO 2015-05-25 00:00:00 Completed [facility] Influenza Virus Vaccine Quad IM Multi-dose 6+ MO 2015-05-25 00:00:00 Completed [facility] Influenza Virus Vaccine Quad IM Multi-dose 6+ MO 2015-05-25 00:00:00 Completed [facility] Influenza Virus Vaccine Quad IM Multi-dose 6+ MO 2015-05-25 00:00:00 Completed [facility] Influenza Virus Vaccine Quad IM Multi-dose 6+ MO 2015-05-25 00:00:00 Completed [facility] Influenza Virus Vaccine Quad IM Multi-dose 6+ MO 2015-05-25 00:00:00 Completed [facility] Influenza Virus Vaccine Quad IM Multi-dose 6+ MO 2015-05-25 00:00:00 Completed [facility] Influenza Virus Vaccine Quad IM Multi-dose 6+ MO 2015-05-25 00:00:00 Completed [facility] Influenza Virus Vaccine Quad IM Multi-dose 6+ MO 2015-05-25 00:00:00 Completed [facility] Influenza Virus Vaccine Quad IM Multi-dose 6+ MO 2015-05-25 00:00:00 Completed [facility] Influenza Virus Vaccine Quad IM Multi-dose 6+ MO 2015-05-25 00:00:00 Completed [facility] Influenza Virus Vaccine Quad IM Multi-dose 6+ MO 2015-05-25 00:00:00 Completed [facility] Influenza Virus Vaccine Quad IM Multi-dose 6+ MO 2015-05-25 00:00:00 Completed [facility] Influenza Virus Vaccine Quad IM Multi-dose 6+ MO 2015-05-25 00:00:00 Completed [facility] Influenza Virus Vaccine Quad IM Multi-dose 6+ MO 2015-05-25 00:00:00 Completed [facility] Influenza Virus Vaccine Quad IM Multi-dose 6+ MO 2015-05-25 00:00:00 Completed [facility] Influenza Virus Vaccine Quad IM Multi-dose 6+ MO 2015-05-25 00:00:00 Completed [facility] Influenza Virus Vaccine Quad IM Multi-dose 6+ MO 2015-05-25 00:00:00 Completed [facility] Influenza Virus Vaccine Quad IM Multi-dose 6+ MO 2015-05-25 00:00:00 Completed [facility] Influenza Virus Vaccine Quad IM Multi-dose 6+ MO 2015-05-25 00:00:00 Completed [facility] Influenza Virus Vaccine Quad IM Multi-dose 6+ MO 2015-05-25 00:00:00 Completed [facility] Influenza Virus Vaccine Quad IM Multi-dose 6+ MO 2015-05-25 00:00:00 Completed [facility] Influenza Virus Vaccine Quad IM Multi-dose 6+ MO 2015-05-25 00:00:00 Completed [facility] Influenza Virus Vaccine Quad IM Multi-dose 6+ MO 2015-05-25 00:00:00 Completed [facility] Influenza Virus Vaccine Quad IM Multi-dose 6+ MO 2015-05-25 00:00:00 Completed [facility] Influenza Virus Vaccine Quad IM Multi-dose 6+ MO 2015-05-25 00:00:00 Completed [facility] Influenza Virus Vaccine Quad IM Multi-dose 6+ MO 2015-05-25 00:00:00 Completed [facility] Influenza Virus Vaccine Quad IM Multi-dose 6+ MO 2015-05-25 00:00:00 Completed [facility] Influenza Virus Vaccine Quad IM Multi-dose 6+ MO 2015-05-25 00:00:00 Completed [facility] Influenza Virus Vaccine Quad IM Multi-dose 6+ MO 2015-05-25 00:00:00 Completed [facility] Influenza Virus Vaccine Quad IM Multi-dose 6+ MO 2015-05-25 00:00:00 Completed [facility] Influenza Virus Vaccine Quad IM Multi-dose 6+ MO 2015-05-25 00:00:00 Completed [facility] Influenza Virus Vaccine Quad IM Multi-dose 6+ MO 2015-05-25 00:00:00 Completed [facility] Influenza Virus Vaccine Quad IM Multi-dose 6+ MO 2015-05-25 00:00:00 Completed [facility] Influenza Virus Vaccine Quad IM Multi-dose 6+ MO 2015-05-25 00:00:00 Completed [facility] Influenza Virus Vaccine Quad IM Multi-dose 6+ MO Unknown Completed [facility] Pneumococcal Polysaccharide, PPSV23 (PNEUMOVAX) Unknown Completed [facility] Influenza Virus Vaccine Quad IM 3+ YRS Unknown Completed [facility] TD, NOS Unknown Completed [facility] Influenza Virus Vaccine Quad IM 3+ YRS Unknown Completed [facility] Influenza Virus Vaccine Quad .5 mL IM 6+ MO (FLUZONE/FLULAVAL/F LUARIX) Unknown Completed [facility] Influenza Virus Vaccine Quad .5 mL IM 6+ MO (FLUZONE/FLULAVAL/F LUARIX) Unknown Completed [facility] Influenza Virus Vaccine Quad .5 mL IM 6+ MO (FLUZONE/FLULAVAL/F LUARIX) Unknown Completed [facility] SARS-COV-2 COVID-19 PFIZER VACCINE Unknown Completed [facility] Influenza Virus Vaccine Quad IM Multi-dose 6+ MO Unknown Completed [facility] Pneumococcal Polysaccharide, PPSV23 (PNEUMOVAX) Unknown Completed [facility] Influenza Virus Vaccine Quad IM 3+ YRS Unknown Completed [facility] TD, NOS Unknown Completed [facility] Influenza Virus Vaccine Quad IM 3+ YRS Unknown Completed [facility] Influenza Virus Vaccine Quad .5 mL IM 6+ MO (FLUZONE/FLULAVAL/F LUARIX) Unknown Completed [facility] Influenza Virus Vaccine Quad .5 mL IM 6+ MO (FLUZONE/FLULAVAL/F LUARIX) Unknown Completed [facility] Influenza Virus Vaccine Quad .5 mL IM 6+ MO (FLUZONE/FLULAVAL/F LUARIX) Unknown Completed [facility] SARS-COV-2 COVID-19 PFIZER VACCINE Unknown Completed [facility] Influenza Virus Vaccine Quad IM Multi-dose 6+ MO Unknown Completed [facility] Pneumococcal Polysaccharide, PPSV23 (PNEUMOVAX) Unknown Completed [facility] Influenza Virus Vaccine Quad IM 3+ YRS Unknown Completed [facility] TD, NOS Unknown Completed [facility] Influenza Virus Vaccine Quad IM 3+ YRS Unknown Completed [facility] Influenza Virus Vaccine Quad .5 mL IM 6+ MO (FLUZONE/FLULAVAL/F LUARIX) Unknown Completed [facility] Influenza Virus Vaccine Quad .5 mL IM 6+ MO (FLUZONE/FLULAVAL/F LUARIX) Unknown Completed [facility] Influenza Virus Vaccine Quad .5 mL IM 6+ MO (FLUZONE/FLULAVAL/F LUARIX) Unknown Completed [facility] SARS-COV-2 COVID-19 PFIZER VACCINE Unknown Completed [facility] Influenza Virus Vaccine Quad IM Multi-dose 6+ MO Unknown Completed [facility] Pneumococcal Polysaccharide, PPSV23 (PNEUMOVAX) Unknown Completed [facility] Influenza Virus Vaccine Quad IM 3+ YRS Unknown Completed [facility] TD, NOS Unknown Completed [facility] Influenza Virus Vaccine Quad IM 3+ YRS Unknown Completed [facility] Influenza Virus Vaccine Quad .5 mL IM 6+ MO (FLUZONE/FLULAVAL/F LUARIX) Unknown Completed [facility] Influenza Virus Vaccine Quad .5 mL IM 6+ MO (FLUZONE/FLULAVAL/F LUARIX) Unknown Completed [facility] Influenza Virus Vaccine Quad .5 mL IM 6+ MO (FLUZONE/FLULAVAL/F LUARIX) Unknown Completed [facility] SARS-COV-2 COVID-19 PFIZER VACCINE Unknown Completed [facility] Influenza Virus Vaccine Quad IM Multi-dose 6+ MO Unknown Completed [facility] Pneumococcal Polysaccharide, PPSV23 (PNEUMOVAX) Unknown Completed [facility] Influenza Virus Vaccine Quad IM 3+ YRS Unknown Completed [facility] TD, NOS Unknown Completed [facility] Influenza Virus Vaccine Quad IM 3+ YRS Unknown Completed [facility] Influenza Virus Vaccine Quad .5 mL IM 6+ MO (FLUZONE/FLULAVAL/F LUARIX) Unknown Completed [facility] Influenza Virus Vaccine Quad .5 mL IM 6+ MO (FLUZONE/FLULAVAL/F LUARIX) Unknown Completed [facility] Influenza Virus Vaccine Quad .5 mL IM 6+ MO (FLUZONE/FLULAVAL/F LUARIX) Unknown Completed [facility] SARS-COV-2 COVID-19 PFIZER VACCINE Unknown Completed [facility] Influenza Virus Vaccine Quad IM Multi-dose 6+ MO Unknown Completed [facility] Pneumococcal Polysaccharide, PPSV23 (PNEUMOVAX) Unknown Completed [facility] Influenza Virus Vaccine Quad IM 3+ YRS Unknown Completed [facility] TD, NOS Unknown Completed [facility] Influenza Virus Vaccine Quad IM 3+ YRS Unknown Completed [facility] Influenza Virus Vaccine Quad .5 mL IM 6+ MO (FLUZONE/FLULAVAL/F LUARIX) Unknown Completed [facility] Influenza Virus Vaccine Quad .5 mL IM 6+ MO (FLUZONE/FLULAVAL/F LUARIX) Unknown Completed [facility] Influenza Virus Vaccine Quad .5 mL IM 6+ MO (FLUZONE/FLULAVAL/F LUARIX) Unknown Completed [facility] SARS-COV-2 COVID-19 PFIZER VACCINE Unknown Completed [facility] Influenza Virus Vaccine Quad IM Multi-dose 6+ MO Unknown Completed [facility] Pneumococcal Polysaccharide, PPSV23 (PNEUMOVAX) Unknown Completed [facility] Influenza Virus Vaccine Quad IM 3+ YRS Unknown Completed [facility] TD, NOS Unknown Completed [facility] Influenza Virus Vaccine Quad IM 3+ YRS Unknown Completed [facility] Influenza Virus Vaccine Quad .5 mL IM 6+ MO (FLUZONE/FLULAVAL/F LUARIX) Unknown Completed [facility] Influenza Virus Vaccine Quad .5 mL IM 6+ MO (FLUZONE/FLULAVAL/F LUARIX) Unknown Completed [facility] Influenza Virus Vaccine Quad .5 mL IM 6+ MO (FLUZONE/FLULAVAL/F LUARIX) Unknown Completed [facility] SARS-COV-2 COVID-19 PFIZER VACCINE Unknown Completed [facility] Influenza Virus Vaccine Quad IM Multi-dose 6+ MO Unknown Completed [facility] Pneumococcal Polysaccharide, PPSV23 (PNEUMOVAX) Unknown Completed [facility] Influenza Virus Vaccine Quad IM 3+ YRS Unknown Completed [facility] TD, NOS Unknown Completed [facility] Influenza Virus Vaccine Quad IM 3+ YRS Unknown Completed [facility] Influenza Virus Vaccine Quad .5 mL IM 6+ MO (FLUZONE/FLULAVAL/F LUARIX) Unknown Completed [facility] Influenza Virus Vaccine Quad .5 mL IM 6+ MO (FLUZONE/FLULAVAL/F LUARIX) Unknown Completed [facility] Influenza Virus Vaccine Quad .5 mL IM 6+ MO (FLUZONE/FLULAVAL/F LUARIX) Unknown Completed [facility] SARS-COV-2 COVID-19 PFIZER VACCINE Unknown Completed [facility] Influenza Virus Vaccine Quad IM Multi-dose 6+ MO Unknown Completed [facility] Pneumococcal Polysaccharide, PPSV23 (PNEUMOVAX) Unknown Completed [facility] Influenza Virus Vaccine Quad IM 3+ YRS Unknown Completed [facility] TD, NOS Unknown Completed [facility] Influenza Virus Vaccine Quad IM 3+ YRS Unknown Completed [facility] Influenza Virus Vaccine Quad .5 mL IM 6+ MO (FLUZONE/FLULAVAL/F LUARIX) Unknown Completed [facility] Influenza Virus Vaccine Quad .5 mL IM 6+ MO (FLUZONE/FLULAVAL/F LUARIX) Unknown Completed [facility] Influenza Virus Vaccine Quad .5 mL IM 6+ MO (FLUZONE/FLULAVAL/F LUARIX) Unknown Completed [facility] SARS-COV-2 COVID-19 PFIZER VACCINE Unknown Completed [facility] Influenza Virus Vaccine Quad IM Multi-dose 6+ MO Unknown Completed [facility] Pneumococcal Polysaccharide, PPSV23 (PNEUMOVAX) Unknown Completed [facility] Influenza Virus Vaccine Quad IM 3+ YRS Unknown Completed [facility] TD, NOS Unknown Completed [facility] Influenza Virus Vaccine Quad IM 3+ YRS Unknown Completed [facility] Influenza Virus Vaccine Quad .5 mL IM 6+ MO (FLUZONE/FLULAVAL/F LUARIX) Unknown Completed [facility] Influenza Virus Vaccine Quad .5 mL IM 6+ MO (FLUZONE/FLULAVAL/F LUARIX) Unknown Completed [facility] Influenza Virus Vaccine Quad .5 mL IM 6+ MO (FLUZONE/FLULAVAL/F LUARIX) Unknown Completed [facility] SARS-COV-2 COVID-19 PFIZER VACCINE Unknown Completed [facility] Influenza Virus Vaccine Quad IM Multi-dose 6+ MO Unknown Completed [facility] Pneumococcal Polysaccharide, PPSV23 (PNEUMOVAX) Unknown Completed [facility] Influenza Virus Vaccine Quad IM 3+ YRS Unknown Completed [facility] TD, NOS Unknown Completed [facility] Influenza Virus Vaccine Quad IM 3+ YRS Unknown Completed [facility] Influenza Virus Vaccine Quad .5 mL IM 6+ MO (FLUZONE/FLULAVAL/F LUARIX) Unknown Completed [facility] Influenza Virus Vaccine Quad .5 mL IM 6+ MO (FLUZONE/FLULAVAL/F LUARIX) Unknown Completed [facility] Influenza Virus Vaccine Quad .5 mL IM 6+ MO (FLUZONE/FLULAVAL/F LUARIX) Unknown Completed [facility] SARS-COV-2 COVID-19 PFIZER VACCINE Unknown Completed [facility] Influenza Virus Vaccine Quad IM Multi-dose 6+ MO Unknown Completed [facility] Pneumococcal Polysaccharide, PPSV23 (PNEUMOVAX) Unknown Completed [facility] Influenza Virus Vaccine Quad IM 3+ YRS Unknown Completed [facility] TD, NOS Unknown Completed [facility] Influenza Virus Vaccine Quad IM 3+ YRS Unknown Completed [facility] Influenza Virus Vaccine Quad .5 mL IM 6+ MO (FLUZONE/FLULAVAL/F LUARIX) Unknown Completed [facility] Influenza Virus Vaccine Quad .5 mL IM 6+ MO (FLUZONE/FLULAVAL/F LUARIX) Unknown Completed [facility] Influenza Virus Vaccine Quad .5 mL IM 6+ MO (FLUZONE/FLULAVAL/F LUARIX) Unknown Completed [facility] SARS-COV-2 COVID-19 PFIZER VACCINE Unknown Completed [facility] Influenza Virus Vaccine Quad IM Multi-dose 6+ MO Unknown Completed [facility] Pneumococcal Polysaccharide, PPSV23 (PNEUMOVAX) Unknown Completed [facility] Influenza Virus Vaccine Quad IM 3+ YRS Unknown Completed [facility] TD, NOS Unknown Completed [facility] Influenza Virus Vaccine Quad IM 3+ YRS Unknown Completed [facility] Influenza Virus Vaccine Quad .5 mL IM 6+ MO (FLUZONE/FLULAVAL/F LUARIX) Unknown Completed [facility] Influenza Virus Vaccine Quad .5 mL IM 6+ MO (FLUZONE/FLULAVAL/F LUARIX) Unknown Completed [facility] Influenza Virus Vaccine Quad .5 mL IM 6+ MO (FLUZONE/FLULAVAL/F LUARIX) Unknown Completed [facility] SARS-COV-2 COVID-19 PFIZER VACCINE Unknown Completed [facility] Influenza Virus Vaccine Quad IM Multi-dose 6+ MO Unknown Completed [facility] Pneumococcal Polysaccharide, PPSV23 (PNEUMOVAX) Unknown Completed [facility] Influenza Virus Vaccine Quad IM 3+ YRS Unknown Completed [facility] TD, NOS Unknown Completed [facility] Influenza Virus Vaccine Quad IM 3+ YRS Unknown Completed [facility] Influenza Virus Vaccine Quad .5 mL IM 6+ MO (FLUZONE/FLULAVAL/F LUARIX) Unknown Completed [facility] Influenza Virus Vaccine Quad .5 mL IM 6+ MO (FLUZONE/FLULAVAL/F LUARIX) Unknown Completed [facility] Influenza Virus Vaccine Quad .5 mL IM 6+ MO (FLUZONE/FLULAVAL/F LUARIX) Unknown Completed [facility] SARS-COV-2 COVID-19 PFIZER VACCINE Unknown Completed [facility] Influenza Virus Vaccine Quad IM Multi-dose 6+ MO Unknown Completed [facility] Pneumococcal Polysaccharide, PPSV23 (PNEUMOVAX) Unknown Completed [facility] Influenza Virus Vaccine Quad IM 3+ YRS Unknown Completed [facility] TD, NOS Unknown Completed [facility] Influenza Virus Vaccine Quad IM 3+ YRS Unknown Completed [facility] Influenza Virus Vaccine Quad .5 mL IM 6+ MO (FLUZONE/FLULAVAL/F LUARIX) Unknown Completed [facility] Influenza Virus Vaccine Quad .5 mL IM 6+ MO (FLUZONE/FLULAVAL/F LUARIX) Unknown Completed [facility] Influenza Virus Vaccine Quad .5 mL IM 6+ MO (FLUZONE/FLULAVAL/F LUARIX) Unknown Completed [facility] SARS-COV-2 COVID-19 PFIZER VACCINE Unknown Completed [facility] Influenza Virus Vaccine Quad IM Multi-dose 6+ MO Unknown Completed [facility] Pneumococcal Polysaccharide, PPSV23 (PNEUMOVAX) Unknown Completed [facility] Influenza Virus Vaccine Quad IM 3+ YRS Unknown Completed [facility] TD, NOS Unknown Completed [facility] Influenza Virus Vaccine Quad IM 3+ YRS Unknown Completed [facility] Influenza Virus Vaccine Quad .5 mL IM 6+ MO (FLUZONE/FLULAVAL/F LUARIX) Unknown Completed [facility] Influenza Virus Vaccine Quad .5 mL IM 6+ MO (FLUZONE/FLULAVAL/F LUARIX) Unknown Completed [facility] Influenza Virus Vaccine Quad .5 mL IM 6+ MO (FLUZONE/FLULAVAL/F LUARIX) Unknown Completed [facility] SARS-COV-2 COVID-19 PFIZER VACCINE Unknown Completed [facility] Influenza Virus Vaccine Quad IM Multi-dose 6+ MO Unknown Completed [facility] Pneumococcal Polysaccharide, PPSV23 (PNEUMOVAX) Unknown Completed [facility] Influenza Virus Vaccine Quad IM 3+ YRS Unknown Completed [facility] TD, NOS Unknown Completed [facility] Influenza Virus Vaccine Quad IM 3+ YRS Unknown Completed [facility] Influenza Virus Vaccine Quad .5 mL IM 6+ MO (FLUZONE/FLULAVAL/F LUARIX) Unknown Completed [facility] Influenza Virus Vaccine Quad .5 mL IM 6+ MO (FLUZONE/FLULAVAL/F LUARIX) Unknown Completed [facility] Influenza Virus Vaccine Quad .5 mL IM 6+ MO (FLUZONE/FLULAVAL/F LUARIX) Unknown Completed [facility] SARS-COV-2 COVID-19 PFIZER VACCINE Unknown Completed [facility] Influenza Virus Vaccine Quad IM Multi-dose 6+ MO Unknown Completed [facility] Pneumococcal Polysaccharide, PPSV23 (PNEUMOVAX) Unknown Completed [facility] Influenza Virus Vaccine Quad IM 3+ YRS Unknown Completed [facility] TD, NOS Unknown Completed [facility] Influenza Virus Vaccine Quad IM 3+ YRS Unknown Completed [facility] Influenza Virus Vaccine Quad .5 mL IM 6+ MO (FLUZONE/FLULAVAL/F LUARIX) Unknown Completed [facility] Influenza Virus Vaccine Quad .5 mL IM 6+ MO (FLUZONE/FLULAVAL/F LUARIX) Unknown Completed [facility] Influenza Virus Vaccine Quad .5 mL IM 6+ MO (FLUZONE/FLULAVAL/F LUARIX) Unknown Completed [facility] SARS-COV-2 COVID-19 PFIZER VACCINE Unknown Completed [facility] Influenza Virus Vaccine Quad IM Multi-dose 6+ MO Unknown Completed [facility] Pneumococcal Polysaccharide, PPSV23 (PNEUMOVAX) Unknown Completed [facility] Influenza Virus Vaccine Quad IM 3+ YRS Unknown Completed [facility] TD, NOS Unknown Completed [facility] Influenza Virus Vaccine Quad IM 3+ YRS Unknown Completed [facility] Influenza Virus Vaccine Quad .5 mL IM 6+ MO (FLUZONE/FLULAVAL/F LUARIX) Unknown Completed [facility] Influenza Virus Vaccine Quad .5 mL IM 6+ MO (FLUZONE/FLULAVAL/F LUARIX) Unknown Completed [facility] Influenza Virus Vaccine Quad .5 mL IM 6+ MO (FLUZONE/FLULAVAL/F LUARIX) Unknown Completed [facility] SARS-COV-2 COVID-19 PFIZER VACCINE Unknown Completed [facility] Influenza Virus Vaccine Quad IM Multi-dose 6+ MO Unknown Completed [facility] Pneumococcal Polysaccharide, PPSV23 (PNEUMOVAX) Unknown Completed [facility] Influenza Virus Vaccine Quad IM 3+ YRS Unknown Completed [facility] TD, NOS Unknown Completed [facility] Influenza Virus Vaccine Quad IM 3+ YRS Unknown Completed [facility] Influenza Virus Vaccine Quad .5 mL IM 6+ MO (FLUZONE/FLULAVAL/F LUARIX) Unknown Completed [facility] Influenza Virus Vaccine Quad .5 mL IM 6+ MO (FLUZONE/FLULAVAL/F LUARIX) Unknown Completed [facility] Influenza Virus Vaccine Quad .5 mL IM 6+ MO (FLUZONE/FLULAVAL/F LUARIX) Unknown Completed [facility] SARS-COV-2 COVID-19 PFIZER VACCINE Unknown Completed [facility] Influenza Virus Vaccine Quad IM Multi-dose 6+ MO Unknown Completed [facility] Pneumococcal Polysaccharide, PPSV23 (PNEUMOVAX) Unknown Completed [facility] Influenza Virus Vaccine Quad IM 3+ YRS Unknown Completed [facility] TD, NOS Unknown Completed [facility] Influenza Virus Vaccine Quad IM 3+ YRS Unknown Completed [facility] Influenza Virus Vaccine Quad .5 mL IM 6+ MO (FLUZONE/FLULAVAL/F LUARIX) Unknown Completed [facility] Influenza Virus Vaccine Quad .5 mL IM 6+ MO (FLUZONE/FLULAVAL/F LUARIX) Unknown Completed [facility] Influenza Virus Vaccine Quad .5 mL IM 6+ MO (FLUZONE/FLULAVAL/F LUARIX) Unknown Completed [facility] SARS-COV-2 COVID-19 PFIZER VACCINE Unknown Completed [facility] Influenza Virus Vaccine Quad IM Multi-dose 6+ MO Unknown Completed [facility] Pneumococcal Polysaccharide, PPSV23 (PNEUMOVAX) Unknown Completed [facility] Influenza Virus Vaccine Quad IM 3+ YRS Unknown Completed [facility] TD, NOS Unknown Completed [facility] Influenza Virus Vaccine Quad IM 3+ YRS Unknown Completed [facility] Influenza Virus Vaccine Quad .5 mL IM 6+ MO (FLUZONE/FLULAVAL/F LUARIX) Unknown Completed [facility] Influenza Virus Vaccine Quad .5 mL IM 6+ MO (FLUZONE/FLULAVAL/F LUARIX) Unknown Completed [facility] Influenza Virus Vaccine Quad .5 mL IM 6+ MO (FLUZONE/FLULAVAL/F LUARIX) Unknown Completed [facility] SARS-COV-2 COVID-19 PFIZER VACCINE Unknown Completed [facility] Influenza Virus Vaccine Quad IM Multi-dose 6+ MO Unknown Completed [facility] Pneumococcal Polysaccharide, PPSV23 (PNEUMOVAX) Unknown Completed [facility] Influenza Virus Vaccine Quad IM 3+ YRS Unknown Completed [facility] TD, NOS Unknown Completed [facility] Influenza Virus Vaccine Quad IM 3+ YRS Unknown Completed [facility] Influenza Virus Vaccine Quad .5 mL IM 6+ MO (FLUZONE/FLULAVAL/F LUARIX) Unknown Completed [facility] Influenza Virus Vaccine Quad .5 mL IM 6+ MO (FLUZONE/FLULAVAL/F LUARIX) Unknown Completed [facility] Influenza Virus Vaccine Quad .5 mL IM 6+ MO (FLUZONE/FLULAVAL/F LUARIX) Unknown Completed [facility] SARS-COV-2 COVID-19 PFIZER VACCINE Unknown Completed [facility] Influenza Virus Vaccine Quad IM Multi-dose 6+ MO Unknown Completed [facility] Pneumococcal Polysaccharide, PPSV23 (PNEUMOVAX) Unknown Completed [facility] Influenza Virus Vaccine Quad IM 3+ YRS Unknown Completed [facility] TD, NOS Unknown Completed [facility] Influenza Virus Vaccine Quad IM 3+ YRS Unknown Completed [facility] Influenza Virus Vaccine Quad .5 mL IM 6+ MO (FLUZONE/FLULAVAL/F LUARIX) Unknown Completed [facility] Influenza Virus Vaccine Quad .5 mL IM 6+ MO (FLUZONE/FLULAVAL/F LUARIX) Unknown Completed [facility] Influenza Virus Vaccine Quad .5 mL IM 6+ MO (FLUZONE/FLULAVAL/F LUARIX) Unknown Completed [facility] SARS-COV-2 COVID-19 PFIZER VACCINE Unknown Completed [facility] Influenza Virus Vaccine Quad IM Multi-dose 6+ MO Unknown Completed [facility] Pneumococcal Polysaccharide, PPSV23 (PNEUMOVAX) Unknown Completed [facility] Influenza Virus Vaccine Quad IM 3+ YRS Unknown Completed [facility] TD, NOS Unknown Completed [facility] Influenza Virus Vaccine Quad IM 3+ YRS Unknown Completed [facility] Influenza Virus Vaccine Quad .5 mL IM 6+ MO (FLUZONE/FLULAVAL/F LUARIX) Unknown Completed [facility] Influenza Virus Vaccine Quad .5 mL IM 6+ MO (FLUZONE/FLULAVAL/F LUARIX) Unknown Completed [facility] Influenza Virus Vaccine Quad .5 mL IM 6+ MO (FLUZONE/FLULAVAL/F LUARIX) Unknown Completed [facility] SARS-COV-2 COVID-19 PFIZER VACCINE Unknown Completed [facility] Influenza Virus Vaccine Quad IM Multi-dose 6+ MO Unknown Completed [facility] Pneumococcal Polysaccharide, PPSV23 (PNEUMOVAX) Unknown Completed [facility] Influenza Virus Vaccine Quad IM 3+ YRS Unknown Completed [facility] TD, NOS Unknown Completed [facility] Influenza Virus Vaccine Quad IM 3+ YRS Unknown Completed [facility] Influenza Virus Vaccine Quad .5 mL IM 6+ MO (FLUZONE/FLULAVAL/F LUARIX) Unknown Completed [facility] Influenza Virus Vaccine Quad .5 mL IM 6+ MO (FLUZONE/FLULAVAL/F LUARIX) Unknown Completed [facility] Influenza Virus Vaccine Quad .5 mL IM 6+ MO (FLUZONE/FLULAVAL/F LUARIX) Unknown Completed [facility] SARS-COV-2 COVID-19 PFIZER VACCINE Unknown Completed [facility] Influenza Virus Vaccine Quad IM Multi-dose 6+ MO Unknown Completed [facility] Pneumococcal Polysaccharide, PPSV23 (PNEUMOVAX) Unknown Completed [facility] Influenza Virus Vaccine Quad IM 3+ YRS Unknown Completed [facility] TD, NOS Unknown Completed [facility] Influenza Virus Vaccine Quad IM 3+ YRS Unknown Completed [facility] Influenza Virus Vaccine Quad .5 mL IM 6+ MO (FLUZONE/FLULAVAL/F LUARIX) Unknown Completed [facility] Influenza Virus Vaccine Quad .5 mL IM 6+ MO (FLUZONE/FLULAVAL/F LUARIX) Unknown Completed [facility] Influenza Virus Vaccine Quad .5 mL IM 6+ MO (FLUZONE/FLULAVAL/F LUARIX) Unknown Completed [facility] SARS-COV-2 COVID-19 PFIZER VACCINE Unknown Completed [facility] Influenza Virus Vaccine Quad IM Multi-dose 6+ MO Unknown Completed [facility] Pneumococcal Polysaccharide, PPSV23 (PNEUMOVAX) Unknown Completed [facility] Influenza Virus Vaccine Quad IM 3+ YRS Unknown Completed [facility] TD, NOS Unknown Completed [facility] Influenza Virus Vaccine Quad IM 3+ YRS Unknown Completed [facility] Influenza Virus Vaccine Quad .5 mL IM 6+ MO (FLUZONE/FLULAVAL/F LUARIX) Unknown Completed [facility] Influenza Virus Vaccine Quad .5 mL IM 6+ MO (FLUZONE/FLULAVAL/F LUARIX) Unknown Completed [facility] Influenza Virus Vaccine Quad .5 mL IM 6+ MO (FLUZONE/FLULAVAL/F LUARIX) Unknown Completed [facility] SARS-COV-2 COVID-19 PFIZER VACCINE Unknown Completed [facility] Influenza Virus Vaccine Quad IM Multi-dose 6+ MO Unknown Completed [facility] Pneumococcal Polysaccharide, PPSV23 (PNEUMOVAX) Unknown Completed [facility] Influenza Virus Vaccine Quad IM 3+ YRS Unknown Completed [facility] TD, NOS Unknown Completed [facility] Influenza Virus Vaccine Quad IM 3+ YRS Unknown Completed [facility] Influenza Virus Vaccine Quad .5 mL IM 6+ MO (FLUZONE/FLULAVAL/F LUARIX) Unknown Completed [facility] Influenza Virus Vaccine Quad .5 mL IM 6+ MO (FLUZONE/FLULAVAL/F LUARIX) Unknown Completed [facility] Influenza Virus Vaccine Quad IM Multi-dose 6+ MO Unknown Completed [facility] Pneumococcal Polysaccharide, PPSV23 (PNEUMOVAX) Unknown Completed [facility] Influenza Virus Vaccine Quad IM 3+ YRS Unknown Completed [facility] TD, NOS Unknown Completed [facility] Influenza Virus Vaccine Quad IM 3+ YRS Unknown Completed [facility] Influenza Virus Vaccine Quad .5 mL IM 6+ MO (FLUZONE/FLULAVAL/F LUARIX) Unknown Completed [facility] Influenza Virus Vaccine Quad .5 mL IM 6+ MO (FLUZONE/FLULAVAL/F LUARIX) Unknown Completed [facility] Influenza Virus Vaccine Quad .5 mL IM 6+ MO (FLUZONE/FLULAVAL/F LUARIX) Unknown Completed [facility] SARS-COV-2 COVID-19 PFIZER VACCINE Unknown Completed [facility] Influenza Virus Vaccine Quad IM Multi-dose 6+ MO Unknown Completed [facility] Pneumococcal Polysaccharide, PPSV23 (PNEUMOVAX) Unknown Completed [facility] Influenza Virus Vaccine Quad IM 3+ YRS Unknown Completed [facility] TD, NOS Unknown Completed [facility] Influenza Virus Vaccine Quad IM 3+ YRS Unknown Completed [facility] Influenza Virus Vaccine Quad .5 mL IM 6+ MO (FLUZONE/FLULAVAL/F LUARIX) Unknown Completed [facility] Influenza Virus Vaccine Quad .5 mL IM 6+ MO (FLUZONE/FLULAVAL/F LUARIX) Unknown Completed [facility] Influenza Virus Vaccine Quad .5 mL IM 6+ MO (FLUZONE/FLULAVAL/F LUARIX) Unknown Completed [facility] SARS-COV-2 COVID-19 PFIZER VACCINE Unknown Completed [facility] Influenza Virus Vaccine Quad IM Multi-dose 6+ MO Unknown Completed [facility] Pneumococcal Polysaccharide, PPSV23 (PNEUMOVAX) Unknown Completed [facility] Influenza Virus Vaccine Quad IM 3+ YRS Unknown Completed [facility] TD, NOS Unknown Completed [facility] Influenza Virus Vaccine Quad IM 3+ YRS Unknown Completed [facility] Influenza Virus Vaccine Quad .5 mL IM 6+ MO (FLUZONE/FLULAVAL/F LUARIX) Unknown Completed [facility] Influenza Virus Vaccine Quad .5 mL IM 6+ MO (FLUZONE/FLULAVAL/F LUARIX) Unknown Completed [facility] Influenza Virus Vaccine Quad .5 mL IM 6+ MO (FLUZONE/FLULAVAL/F LUARIX) Unknown Completed [facility] SARS-COV-2 COVID-19 PFIZER VACCINE Unknown Completed [facility] Influenza Virus Vaccine Quad IM Multi-dose 6+ MO Unknown Completed [facility] Pneumococcal Polysaccharide, PPSV23 (PNEUMOVAX) Unknown Completed [facility] Influenza Virus Vaccine Quad IM 3+ YRS Unknown Completed [facility] TD, NOS Unknown Completed [facility] Influenza Virus Vaccine Quad IM 3+ YRS Unknown Completed [facility] Influenza Virus Vaccine Quad .5 mL IM 6+ MO (FLUZONE/FLULAVAL/F LUARIX) Unknown Completed [facility] Influenza Virus Vaccine Quad .5 mL IM 6+ MO (FLUZONE/FLULAVAL/F LUARIX) Unknown Completed [facility] Influenza Virus Vaccine Quad .5 mL IM 6+ MO (FLUZONE/FLULAVAL/F LUARIX) Unknown Completed [facility] SARS-COV-2 COVID-19 PFIZER VACCINE Unknown Completed [facility] Influenza Virus Vaccine Quad IM Multi-dose 6+ MO Unknown Completed [facility] Pneumococcal Polysaccharide, PPSV23 (PNEUMOVAX) Unknown Completed [facility] Influenza Virus Vaccine Quad IM 3+ YRS Unknown Completed [facility] TD, NOS Unknown Completed [facility] Influenza Virus Vaccine Quad IM 3+ YRS Unknown Completed [facility] Influenza Virus Vaccine Quad .5 mL IM 6+ MO (FLUZONE/FLULAVAL/F LUARIX) Unknown Completed [facility] Influenza Virus Vaccine Quad .5 mL IM 6+ MO (FLUZONE/FLULAVAL/F LUARIX) Unknown Completed [facility] Influenza Virus Vaccine Quad .5 mL IM 6+ MO (FLUZONE/FLULAVAL/F LUARIX) Unknown Completed [facility] SARS-COV-2 COVID-19 PFIZER VACCINE Unknown Completed [facility] Influenza Virus Vaccine Quad IM Multi-dose 6+ MO Unknown Completed [facility] Pneumococcal Polysaccharide, PPSV23 (PNEUMOVAX) Unknown Completed [facility] Influenza Virus Vaccine Quad IM 3+ YRS Unknown Completed [facility] TD, NOS Unknown Completed [facility] Influenza Virus Vaccine Quad IM 3+ YRS Unknown Completed [facility] Influenza Virus Vaccine Quad .5 mL IM 6+ MO (FLUZONE/FLULAVAL/F LUARIX) Unknown Completed [facility] Influenza Virus Vaccine Quad .5 mL IM 6+ MO (FLUZONE/FLULAVAL/F LUARIX) Unknown Completed [facility] Influenza Virus Vaccine Quad .5 mL IM 6+ MO (FLUZONE/FLULAVAL/F LUARIX) Unknown Completed [facility] SARS-COV-2 COVID-19 PFIZER VACCINE Unknown Completed [facility] Influenza Virus Vaccine Quad IM Multi-dose 6+ MO Unknown Completed [facility] Pneumococcal Polysaccharide, PPSV23 (PNEUMOVAX) Unknown Completed [facility] Influenza Virus Vaccine Quad IM 3+ YRS Unknown Completed [facility] TD, NOS Unknown Completed [facility] Influenza Virus Vaccine Quad IM 3+ YRS Unknown Completed [facility] Influenza Virus Vaccine Quad .5 mL IM 6+ MO (FLUZONE/FLULAVAL/F LUARIX) Unknown Completed [facility] Influenza Virus Vaccine Quad .5 mL IM 6+ MO (FLUZONE/FLULAVAL/F LUARIX) Unknown Completed [facility] Influenza Virus Vaccine Quad .5 mL IM 6+ MO (FLUZONE/FLULAVAL/F LUARIX) Unknown Completed [facility] SARS-COV-2 COVID-19 PFIZER VACCINE Unknown Completed [facility] Influenza Virus Vaccine Quad IM Multi-dose 6+ MO Unknown Completed [facility] Pneumococcal Polysaccharide, PPSV23 (PNEUMOVAX) Unknown Completed [facility] Influenza Virus Vaccine Quad IM 3+ YRS Unknown Completed [facility] TD, NOS Unknown Completed [facility] Influenza Virus Vaccine Quad IM 3+ YRS Unknown Completed [facility] Influenza Virus Vaccine Quad .5 mL IM 6+ MO (FLUZONE/FLULAVAL/F LUARIX) Unknown Completed [facility] Influenza Virus Vaccine Quad .5 mL IM 6+ MO (FLUZONE/FLULAVAL/F LUARIX) Unknown Completed [facility] Influenza Virus Vaccine Quad .5 mL IM 6+ MO (FLUZONE/FLULAVAL/F LUARIX) Unknown Completed [facility] SARS-COV-2 COVID-19 PFIZER VACCINE Unknown Completed [facility] Influenza Virus Vaccine Quad IM Multi-dose 6+ MO Unknown Completed [facility] Pneumococcal Polysaccharide, PPSV23 (PNEUMOVAX) Unknown Completed [facility] Influenza Virus Vaccine Quad IM 3+ YRS Unknown Completed [facility] TD, NOS Unknown Completed [facility] Influenza Virus Vaccine Quad IM 3+ YRS Unknown Completed [facility] Influenza Virus Vaccine Quad .5 mL IM 6+ MO (FLUZONE/FLULAVAL/F LUARIX) Unknown Completed [facility] Influenza Virus Vaccine Quad .5 mL IM 6+ MO (FLUZONE/FLULAVAL/F LUARIX) Unknown Completed [facility] Influenza Virus Vaccine Quad .5 mL IM 6+ MO (FLUZONE/FLULAVAL/F LUARIX) Unknown Completed [facility] SARS-COV-2 COVID-19 PFIZER VACCINE Unknown Completed [facility] Influenza Virus Vaccine Quad IM Multi-dose 6+ MO Unknown Completed [facility] Pneumococcal Polysaccharide, PPSV23 (PNEUMOVAX) Unknown Completed [facility] Influenza Virus Vaccine Quad IM 3+ YRS Unknown Completed [facility] TD, NOS Unknown Completed [facility] Influenza Virus Vaccine Quad IM 3+ YRS Unknown Completed [facility] Influenza Virus Vaccine Quad .5 mL IM 6+ MO (FLUZONE/FLULAVAL/F LUARIX) Unknown Completed [facility] Influenza Virus Vaccine Quad .5 mL IM 6+ MO (FLUZONE/FLULAVAL/F LUARIX) Unknown Completed [facility] Influenza Virus Vaccine Quad .5 mL IM 6+ MO (FLUZONE/FLULAVAL/F LUARIX) Unknown Completed [facility] SARS-COV-2 COVID-19 PFIZER VACCINE Unknown Completed [facility] Influenza Virus Vaccine Quad IM Multi-dose 6+ MO Unknown Completed [facility] Pneumococcal Polysaccharide, PPSV23 (PNEUMOVAX) Unknown Completed [facility] Influenza Virus Vaccine Quad IM 3+ YRS Unknown Completed [facility] TD, NOS Unknown Completed [facility] Influenza Virus Vaccine Quad IM 3+ YRS Unknown Completed [facility] Influenza Virus Vaccine Quad .5 mL IM 6+ MO (FLUZONE/FLULAVAL/F LUARIX) Unknown Completed [facility] Influenza Virus Vaccine Quad .5 mL IM 6+ MO (FLUZONE/FLULAVAL/F LUARIX) Unknown Completed [facility] Influenza Virus Vaccine Quad .5 mL IM 6+ MO (FLUZONE/FLULAVAL/F LUARIX) Unknown Completed [facility] SARS-COV-2 COVID-19 PFIZER VACCINE Unknown Completed [facility] Influenza Virus Vaccine Quad IM Multi-dose 6+ MO Unknown Completed [facility] Pneumococcal Polysaccharide, PPSV23 (PNEUMOVAX) Unknown Completed [facility] Influenza Virus Vaccine Quad IM 3+ YRS Unknown Completed [facility] TD, NOS Unknown Completed [facility] Influenza Virus Vaccine Quad IM 3+ YRS Unknown Completed [facility] Influenza Virus Vaccine Quad .5 mL IM 6+ MO (FLUZONE/FLULAVAL/F LUARIX) Unknown Completed [facility] Influenza Virus Vaccine Quad .5 mL IM 6+ MO (FLUZONE/FLULAVAL/F LUARIX) Unknown Completed [facility] Influenza Virus Vaccine Quad .5 mL IM 6+ MO (FLUZONE/FLULAVAL/F LUARIX) Unknown Completed [facility] SARS-COV-2 COVID-19 PFIZER VACCINE Unknown Completed [facility] Influenza Virus Vaccine Quad IM Multi-dose 6+ MO Unknown Completed [facility] Pneumococcal Polysaccharide, PPSV23 (PNEUMOVAX) Unknown Completed [facility] Influenza Virus Vaccine Quad IM 3+ YRS Unknown Completed [facility] TD, NOS Unknown Completed [facility] Influenza Virus Vaccine Quad IM 3+ YRS Unknown Completed [facility] Influenza Virus Vaccine Quad .5 mL IM 6+ MO (FLUZONE/FLULAVAL/F LUARIX) Unknown Completed [facility] Influenza Virus Vaccine Quad .5 mL IM 6+ MO (FLUZONE/FLULAVAL/F LUARIX) Unknown Completed [facility] Influenza Virus Vaccine Quad .5 mL IM 6+ MO (FLUZONE/FLULAVAL/F LUARIX) Unknown Completed [facility] SARS-COV-2 COVID-19 PFIZER VACCINE Unknown Completed [facility] Influenza Virus Vaccine Quad IM Multi-dose 6+ MO Unknown Completed [facility] Pneumococcal Polysaccharide, PPSV23 (PNEUMOVAX) Unknown Completed [facility] Influenza Virus Vaccine Quad IM 3+ YRS Unknown Completed [facility] TD, NOS Unknown Completed [facility] Influenza Virus Vaccine Quad IM 3+ YRS Unknown Completed [facility] Influenza Virus Vaccine Quad .5 mL IM 6+ MO (FLUZONE/FLULAVAL/F LUARIX) Unknown Completed [facility] Influenza Virus Vaccine Quad .5 mL IM 6+ MO (FLUZONE/FLULAVAL/F LUARIX) Unknown Completed [facility] Influenza Virus Vaccine Quad .5 mL IM 6+ MO (FLUZONE/FLULAVAL/F LUARIX) Unknown Completed [facility] SARS-COV-2 COVID-19 PFIZER VACCINE Unknown Completed [facility] Influenza Virus Vaccine Quad IM Multi-dose 6+ MO Unknown Completed [facility] Pneumococcal Polysaccharide, PPSV23 (PNEUMOVAX) Unknown Completed [facility] Influenza Virus Vaccine Quad .5 mL IM 6+ MO (FLUZONE/FLULAVAL/F LUARIX) Unknown Completed [facility] TD, NOS Unknown Completed [facility] SARS-COV-2 COVID-19 PFIZER VACCINE Unknown Completed [facility] Influenza Virus Vaccine Quad IM Multi-dose 6+ MO Unknown Completed [facility] Pneumococcal Polysaccharide, PPSV23 (PNEUMOVAX) Unknown Completed [facility] Influenza Virus Vaccine Quad .5 mL IM 6+ MO (FLUZONE/FLULAVAL/F LUARIX) Unknown Completed [facility] TD, NOS Unknown Completed [facility] SARS-COV-2 COVID-19 PFIZER VACCINE Unknown Completed [facility] Influenza Virus Vaccine Quad IM Multi-dose 6+ MO Unknown Completed [facility] Pneumococcal Polysaccharide, PPSV23 (PNEUMOVAX) Unknown Completed [facility] Influenza Virus Vaccine Quad .5 mL IM 6+ MO (FLUZONE/FLULAVAL/F LUARIX) Unknown Completed [facility] TD, NOS Unknown Completed [facility] SARS-COV-2 COVID-19 PFIZER VACCINE Unknown Completed [facility] Influenza Virus Vaccine Quad IM Multi-dose 6+ MO Unknown Completed [facility] Pneumococcal Polysaccharide, PPSV23 (PNEUMOVAX) Unknown Completed [facility] Influenza Virus Vaccine Quad .5 mL IM 6+ MO (FLUZONE/FLULAVAL/F LUARIX) Unknown Completed [facility] TD, NOS Unknown Completed [facility] SARS-COV-2 COVID-19 PFIZER VACCINE Unknown Completed [facility] Influenza Virus Vaccine Quad IM Multi-dose 6+ MO Unknown Completed [facility] Pneumococcal Polysaccharide, PPSV23 (PNEUMOVAX) Unknown Completed [facility] Influenza Virus Vaccine Quad .5 mL IM 6+ MO (FLUZONE/FLULAVAL/F LUARIX) Unknown Completed [facility] TD, NOS Unknown Completed [facility] SARS-COV-2 COVID-19 PFIZER VACCINE Unknown Completed [facility] Influenza Virus Vaccine Quad IM Multi-dose 6+ MO Unknown Completed [facility] Pneumococcal Polysaccharide, PPSV23 (PNEUMOVAX) Unknown Completed [facility] Influenza Virus Vaccine Quad .5 mL IM 6+ MO (FLUZONE/FLULAVAL/F LUARIX) Unknown Completed [facility] TD, NOS Unknown Completed [facility] SARS-COV-2 COVID-19 PFIZER VACCINE Unknown Completed [facility] Influenza Virus Vaccine Quad IM Multi-dose 6+ MO Unknown Completed [facility] Pneumococcal Polysaccharide, PPSV23 (PNEUMOVAX) Unknown Completed [facility] Influenza Virus Vaccine Quad .5 mL IM 6+ MO (FLUZONE/FLULAVAL/F LUARIX) Unknown Completed [facility] TD, NOS Unknown Completed [facility] SARS-COV-2 COVID-19 PFIZER VACCINE Unknown Completed [facility] Vital Signs Vital Name Observation Time Observation Value Comments S ource Systolic blood pressure 2024-04-25 15:44:00 117 mm[Hg] [facility] Diastolic blood pressure 2024-04-25 15:44:00 89 mm[Hg] [facility] Heart rate 2024-04-25 15:44:00 95 /min [facility] Oxygen saturation in Arterial blood by Pulse oximetry 2024-04-25 15:44:00 99 /min [facility] Respiratory rate 2024-04-25 15:41:00 17 /min [facility] Body height 2024-04-25 15:41:00 188 cm [facility] Body weight 2024-04-25 15:41:00 129.865 kg [facility] BMI 2024-04-25 15:41:00 36.76 kg/m2 [facility] Body height 2024-04-19 15:01:00 188 cm [facility] Body weight 2024-04-19 15:01:00 131.044 kg [facility] BMI 2024-04-19 15:01:00 37.09 kg/m2 [facility] Systolic blood pressure 2024-04-13 14:56:00 115 mm[Hg] [facility] Diastolic blood pressure 2024-04-13 14:56:00 79 mm[Hg] [facility] Heart rate 2024-04-13 14:56:00 96 /min [facility] Body temperature 2024-04-13 14:56:00 35.72 Sara [facility] Body height 2024-04-13 14:56:00 188 cm [facility] Body weight 2024-04-13 14:56:00 131.18 kg [facility] BMI 2024-04-13 14:56:00 37.13 kg/m2 [facility] Oxygen saturation in Arterial blood by Pulse oximetry 2024-04-13 14:56:00 98 /min [facility] Systolic blood pressure 2024-04-13 14:57:00 115 mm[Hg] [facility] Diastolic blood pressure 2024-04-13 14:57:00 79 mm[Hg] [facility] Heart rate 2024-04-13 14:57:00 96 /min [facility] Body temperature 2024-04-13 14:57:00 35.72 Sara [facility] Body height 2024-04-13 14:57:00 188 cm [facility] Body weight 2024-04-13 14:57:00 131.18 kg [facility] BMI 2024-04-13 14:57:00 37.13 kg/m2 [facility] Oxygen saturation in Arterial blood by Pulse oximetry 2024-04-13 14:57:00 98 /min [facility] Systolic blood pressure 2024-04-06 16:17:00 138 mm[Hg] [facility] Diastolic blood pressure 2024-04-06 16:17:00 99 mm[Hg] [facility] Heart rate 2024-04-06 16:17:00 73 /min [facility] Body temperature 2024-04-06 16:17:00 36.33 Sara [facility] Respiratory rate 2024-04-06 16:17:00 20 /min [facility] Oxygen saturation in Arterial blood by Pulse oximetry 2024-04-06 16:17:00 97 /min [facility] Body weight 2024-04-06 08:08:00 134.99 kg [facility] BMI 2024-04-06 08:08:00 38.21 kg/m2 [facility] Body height 2024-04-04 21:08:00 188 cm [facility] Systolic blood pressure 2024-03-05 02:30:00 143 mm[Hg] [facility] Diastolic blood pressure 2024-03-05 02:30:00 109 mm[Hg] [facility] Heart rate 2024-03-05 02:30:00 94 /min [facility] Respiratory rate 2024-03-05 02:30:00 18 /min [facility] Oxygen saturation in Arterial blood by Pulse oximetry 2024-03-05 02:30:00 98 /min [facility] Body temperature 2024-03-05 00:34:00 36.78 Sara [facility] Body height 2024-03-05 00:34:00 188 cm [facility] Body weight 2024-03-05 00:34:00 142.883 kg [facility] BMI 2024-03-05 00:34:00 40.44 kg/m2 [facility] Systolic blood pressure 2024-01-05 18:35:00 133 mm[Hg] [facility] Diastolic blood pressure 2024-01-05 18:35:00 90 mm[Hg] [facility] Heart rate 2024-01-05 18:35:00 135 /min [facility] Body height 2024-01-05 18:35:00 188 cm [facility] Body weight 2024-01-05 18:35:00 136.351 kg [facility] BMI 2024-01-05 18:35:00 38.59 kg/m2 [facility] Oxygen saturation in Arterial blood by Pulse oximetry 2024-01-05 18:35:00 99 /min [facility] Systolic blood pressure 2023-11-18 19:41:00 124 mm[Hg] [facility] Diastolic blood pressure 2023-11-18 19:41:00 87 mm[Hg] [facility] Heart rate 2023-11-18 19:41:00 88 /min [facility] Body temperature 2023-11-18 19:41:00 35.72 Sara [facility] Body height 2023-11-18 19:41:00 188 cm [facility] Body weight 2023-11-18 19:41:00 140.615 kg [facility] BMI 2023-11-18 19:41:00 39.80 kg/m2 [facility] Oxygen saturation in Arterial blood by Pulse oximetry 2023-11-18 19:41:00 96 /min [facility] Systolic blood pressure 2023-09-02 19:36:00 125 mm[Hg] [facility] Diastolic blood pressure 2023-09-02 19:36:00 73 mm[Hg] [facility] Heart rate 2023-09-02 19:36:00 80 /min [facility] Body height 2023-09-02 19:36:00 190.5 cm [facility] Body weight 2023-09-02 19:36:00 137.576 kg [facility] BMI 2023-09-02 19:36:00 37.91 kg/m2 [facility] Oxygen saturation in Arterial blood by Pulse oximetry 2023-09-02 19:36:00 98 /min [facility] Systolic blood pressure 2023-05-01 15:43:00 130 mm[Hg] [facility] Diastolic blood pressure 2023-05-01 15:43:00 90 mm[Hg] [facility] Heart rate 2023-05-01 15:43:00 82 /min [facility] Body temperature 2023-05-01 15:43:00 36.11 [facility] Respiratory rate 2023-05-01 15:43:00 18 /min [facility] Body height 2023-05-01 15:43:00 188 cm [facility] Body weight 2023-05-01 15:43:00 139.708 kg [facility] BMI 2023-05-01 15:43:00 39.54 kg/m2 [facility] Oxygen saturation in Arterial blood by Pulse oximetry 2023-05-01 15:43:00 97 /min [facility] Systolic blood pressure 2023-04-09 14:58:00 122 mm[Hg] [facility] Diastolic blood pressure 2023-04-09 14:58:00 88 mm[Hg] [facility] Heart rate 2023-04-09 14:58:00 77 /min [facility] Body temperature 2023-04-09 14:58:00 29.33 [facility] Respiratory rate 2023-04-09 14:58:00 18 /min [facility] Body weight 2023-04-09 14:58:00 143.337 kg [facility] BMI 2023-04-09 14:58:00 42.86 kg/m2 [facility] Oxygen saturation in Arterial blood by Pulse oximetry 2023-04-09 14:58:00 97 /min [facility] Systolic blood pressure 2023-03-28 01:00:00 126 mm[Hg] [facility] Diastolic blood pressure 2023-03-28 01:00:00 110 mm[Hg] [facility] Heart rate 2023-03-28 01:00:00 94 /min [facility] Body temperature 2023-03-28 01:00:00 36.89 [facility] Respiratory rate 2023-03-28 01:00:00 18 /min [facility] Oxygen saturation in Arterial blood by Pulse oximetry 2023-03-28 01:00:00 98 /min [facility] Systolic blood pressure 2022-10-27 15:47:00 124 mm[Hg] [facility] Diastolic blood pressure 2022-10-27 15:47:00 85 mm[Hg] [facility] Heart rate 2022-10-27 15:47:00 76 /min [facility] Respiratory rate 2022-10-27 15:47:00 20 /min [facility] Body height 2022-10-27 15:47:00 182.9 cm [facility] Body weight 2022-10-27 15:47:00 135.626 kg [facility] BMI 2022-10-27 15:47:00 40.55 kg/m2 [facility] Oxygen saturation in Arterial blood by Pulse oximetry 2022-10-27 15:47:00 98 /min [facility] Systolic blood pressure 2022-09-24 15:52:00 110 mm[Hg] [facility] Diastolic blood pressure 2022-09-24 15:52:00 79 mm[Hg] [facility] Heart rate 2022-09-24 15:52:00 77 /min [facility] Body temperature 2022-09-24 15:52:00 36.17 [facility] Respiratory rate 2022-09-24 15:52:00 18 /min [facility] Body height 2022-09-24 15:52:00 188 cm [facility] Body weight 2022-09-24 15:52:00 133.358 kg [facility] BMI 2022-09-24 15:52:00 37.75 kg/m2 [facility] Oxygen saturation in Arterial blood by Pulse oximetry 2022-09-24 15:52:00 94 /min [facility] Systolic blood pressure 2022-08-21 15:52:00 124 mm[Hg] [facility] Diastolic blood pressure 2022-08-21 15:52:00 89 mm[Hg] [facility] Heart rate 2022-08-21 15:52:00 89 /min [facility] Respiratory rate 2022-08-21 15:52:00 20 /min [facility] Body height 2022-08-21 15:52:00 188 cm [facility] Body weight 2022-08-21 15:52:00 134.265 kg [facility] BMI 2022-08-21 15:52:00 38.00 kg/m2 [facility] Oxygen saturation in Arterial blood by Pulse oximetry 2022-08-21 15:52:00 98 /min [facility] Systolic blood pressure 2022-08-21 15:39:00 124 mm[Hg] [facility] Diastolic blood pressure 2022-08-21 15:39:00 89 mm[Hg] [facility] Heart rate 2022-08-21 15:39:00 89 /min [facility] Respiratory rate 2022-08-21 15:39:00 20 /min [facility] Body height 2022-08-21 15:39:00 188 cm [facility] Body weight 2022-08-21 15:39:00 134.446 kg [facility] BMI 2022-08-21 15:39:00 38.06 kg/m2 [facility] Oxygen saturation in Arterial blood by Pulse oximetry 2022-08-21 15:39:00 98 /min [facility] Systolic blood pressure 2022-06-09 23:56:00 136 mm[Hg] [facility] Diastolic blood pressure 2022-06-09 23:56:00 99 mm[Hg] [facility] Heart rate 2022-06-09 23:56:00 98 /min [facility] Body temperature 2022-06-09 22:12:00 35.83 [facility] Respiratory rate 2022-06-09 22:12:00 18 /min [facility] Oxygen saturation in Arterial blood by Pulse oximetry 2022-06-09 22:12:00 98 /min [facility] Body weight 2022-06-09 09:22:00 130.999 kg [facility] BMI 2022-06-09 09:22:00 37.08 kg/m2 [facility] Body height 2022-06-06 00:36:00 188 cm [facility] Systolic blood pressure 2022-06-04 12:45:00 139 mm[Hg] [facility] Diastolic blood pressure 2022-06-04 12:45:00 111 mm[Hg] [facility] Heart rate 2022-06-04 12:45:00 92 /min [facility] Body temperature 2022-06-04 12:45:00 36.56 [facility] Respiratory rate 2022-06-04 12:45:00 18 /min [facility] Body height 2022-06-04 12:45:00 188 cm [facility] Body weight 2022-06-04 12:45:00 131.543 kg [facility] BMI 2022-06-04 12:45:00 37.23 kg/m2 [facility] Oxygen saturation in Arterial blood by Pulse oximetry 2022-06-04 12:45:00 96 /min [facility] Systolic blood pressure 2022-06-03 15:32:00 126 mm[Hg] [facility] Diastolic blood pressure 2022-06-03 15:32:00 86 mm[Hg] [facility] Heart rate 2022-06-03 15:32:00 81 /min [facility] Respiratory rate 2022-06-03 15:32:00 18 /min [facility] Body temperature 2022-06-03 12:13:00 35.83 [facility] Oxygen saturation in Arterial blood by Pulse oximetry 2022-06-03 12:13:00 99 /min [facility] Body weight 2022-06-03 11:00:00 144.516 kg [facility] BMI 2022-06-03 11:00:00 40.91 kg/m2 [facility] Body height 2022-06-01 21:33:00 188 cm [facility] Systolic blood pressure 2022-05-28 16:20:00 149 mm[Hg] [facility] Diastolic blood pressure 2022-05-28 16:20:00 108 mm[Hg] [facility] Respiratory rate 2022-05-28 16:20:00 22 /min [facility] Oxygen saturation in Arterial blood by Pulse oximetry 2022-05-28 16:20:00 99 /min [facility] Body temperature 2022-05-22 20:00:00 36.67 [facility] Systolic blood pressure 2022-05-22 19:00:00 139 mm[Hg] [facility] Diastolic blood pressure 2022-05-22 19:00:00 100 mm[Hg] [facility] Heart rate 2022-05-22 19:00:00 101 /min [facility] Respiratory rate 2022-05-22 19:00:00 18 /min [facility] Oxygen saturation in Arterial blood by Pulse oximetry 2022-05-22 19:00:00 98 /min [facility] Body weight 2022-05-22 15:52:00 141.069 kg [facility] BMI 2022-05-22 15:52:00 39.93 kg/m2 [facility] Body height 2022-05-22 15:49:00 188 cm [facility] Systolic blood pressure 2022-05-20 18:00:00 133 mm[Hg] [facility] Diastolic blood pressure 2022-05-20 18:00:00 81 mm[Hg] [facility] Heart rate 2022-05-20 18:00:00 92 /min [facility] Oxygen saturation in Arterial blood by Pulse oximetry 2022-05-20 18:00:00 97 /min [facility] Respiratory rate 2022-05-20 17:30:00 18 /min [facility] Body temperature 2022-05-20 17:00:00 36.22 [facility] Body weight 2022-05-20 17:00:00 141.069 kg [facility] BMI 2022-05-20 17:00:00 39.93 kg/m2 [facility] Systolic blood pressure 2022-05-20 13:51:00 133 mm[Hg] [facility] Diastolic blood pressure 2022-05-20 13:51:00 102 mm[Hg] [facility] Heart rate 2022-05-20 13:49:00 105 /min [facility] Body height 2022-05-20 13:49:00 188 cm [facility] weight 2022-05-20 13:49:00 141.341 kg [facility] BMI 2022-05-20 13:49:00 40.01 kg/m2 [facility] Oxygen saturation in Arterial blood by Pulse oximetry 2022-05-20 13:49:00 97 /min [facility] Systolic blood pressure 2022-05-19 19:02:00 135 mm[Hg] [facility] Diastolic blood pressure 2022-05-19 19:02:00 95 mm[Hg] [facility] Heart rate 2022-05-19 19:02:00 94 /min [facility] Body temperature 2022-05-19 19:02:00 35.78 [facility] Respiratory rate 2022-05-19 19:02:00 18 /min [facility] Body height 2022-05-19 19:02:00 188 cm [facility] Body weight 2022-05-19 19:02:00 143.291 kg [facility] BMI 2022-05-19 19:02:00 40.56 kg/m2 [facility] Oxygen saturation in Arterial blood by Pulse oximetry 2022-05-19 19:02:00 98 /min [facility] Systolic blood pressure 2022-05-15 16:25:00 132 mm[Hg] [facility] Diastolic blood pressure 2022-05-15 16:25:00 87 mm[Hg] [facility] Heart rate 2022-05-15 16:25:00 87 /min [facility] Body temperature 2022-05-15 16:25:00 36.39 [facility] Respiratory rate 2022-05-15 16:25:00 20 /min [facility] Oxygen saturation in Arterial blood by Pulse oximetry 2022-05-15 16:25:00 97 /min [facility] Body height 2022-05-11 16:18:00 188 cm [facility] Body weight 2022-05-11 16:18:00 144.697 kg [facility] BMI 2022-05-11 16:18:00 40.96 kg/m2 [facility] Systolic blood pressure 2022-05-09 21:30:00 156 mm[Hg] [facility] Diastolic blood pressure 2022-05-09 21:30:00 106 mm[Hg] [facility] Heart rate 2022-05-09 21:30:00 92 /min [facility] Respiratory rate 2022-05-09 21:30:00 16 /min [facility] Oxygen saturation in Arterial blood by Pulse oximetry 2022-05-09 21:30:00 99 /min [facility] Body temperature 2022-05-09 19:08:00 37.22 [facility] Body height 2022-05-09 19:08:00 188 cm [facility] Body weight 2022-05-09 19:08:00 147.419 kg [facility] BMI 2022-05-09 19:08:00 41.73 kg/m2 [facility] Systolic blood pressure 2022-05-09 18:25:00 181 mm[Hg] [facility] Diastolic blood pressure 2022-05-09 18:25:00 129 mm[Hg] [facility] Heart rate 2022-05-09 18:25:00 110 /min [facility] Respiratory rate 2022-05-09 18:25:00 18 /min [facility] Body height 2022-05-09 18:25:00 188 cm [facility] Body weight 2022-05-09 18:25:00 147.374 kg [facility] BMI 2022-05-09 18:25:00 41.71 kg/m2 [facility] Oxygen saturation in Arterial blood by Pulse oximetry 2022-05-09 18:25:00 100 /min [facility] Systolic blood pressure 2022-05-06 12:38:00 122 mm[Hg] [facility] Diastolic blood pressure 2022-05-06 12:38:00 88 mm[Hg] [facility] Heart rate 2022-05-06 12:38:00 90 /min [facility] Body temperature 2022-05-06 12:38:00 35.89 [facility] Respiratory rate 2022-05-06 12:38:00 16 /min [facility] Oxygen saturation in Arterial blood by Pulse oximetry 2022-05-06 12:38:00 96 /min [facility] Body weight 2022-05-06 07:48:00 145.469 kg [facility] BMI 2022-05-06 07:48:00 41.18 kg/m2 [facility] Body height 2022-05-06 01:06:00 188 cm [facility] Systolic blood pressure 2022-04-30 16:00:00 116 mm[Hg] [facility] Diastolic blood pressure 2022-04-30 16:00:00 81 mm[Hg] [facility] Heart rate 2022-04-30 16:00:00 84 /min [facility] Body temperature 2022-04-30 13:11:00 35.83 [facility] Respiratory rate 2022-04-30 13:11:00 18 /min [facility] Oxygen saturation in Arterial blood by Pulse oximetry 2022-04-30 13:11:00 96 /min [facility] Body weight 2022-04-30 09:16:00 147.963 kg [facility] BMI 2022-04-30 09:16:00 41.88 kg/m2 [facility] Body height 2022-04-29 15:31:00 188 cm [facility] Systolic blood pressure 2022-04-28 18:30:00 153 mm[Hg] [facility] Diastolic blood pressure 2022-04-28 18:30:00 116 mm[Hg] [facility] Heart rate 2022-04-28 18:30:00 111 /min [facility] Respiratory rate 2022-04-28 18:30:00 18 /min [facility] Body height 2022-04-28 18:30:00 188 cm [facility] Body weight 2022-04-28 18:30:00 146.965 kg [facility] BMI 2022-04-28 18:30:00 41.60 kg/m2 [facility] Oxygen saturation in Arterial blood by Pulse oximetry 2022-04-28 18:30:00 96 /min [facility] Systolic blood pressure 2022-04-23 16:32:00 123 mm[Hg] [facility] Diastolic blood pressure 2022-04-23 16:32:00 88 mm[Hg] [facility] Heart rate 2022-04-23 16:32:00 85 /min [facility] Body temperature 2022-04-23 16:32:00 35.06 [facility] Respiratory rate 2022-04-23 16:32:00 18 /min [facility] Oxygen saturation in Arterial blood by Pulse oximetry 2022-04-23 16:32:00 98 /min [facility] Body weight 2022-04-23 08:33:00 142.475 kg [facility] BMI 2022-04-23 08:33:00 40.33 kg/m2 [facility] Body height 2022-04-22 17:53:00 188 cm [facility] Systolic blood pressure 2022-04-17 12:19:00 111 mm[Hg] [facility] Diastolic blood pressure 2022-04-17 12:19:00 78 mm[Hg] [facility] Heart rate 2022-04-17 12:19:00 99 /min [facility] Body temperature 2022-04-17 12:19:00 36.94 [facility] Respiratory rate 2022-04-17 12:19:00 18 /min [facility] Body height 2022-04-17 12:19:00 188 cm [facility] Body weight 2022-04-17 12:19:00 144.697 kg [facility] BMI 2022-04-17 12:19:00 40.96 kg/m2 [facility] Oxygen saturation in Arterial blood by Pulse oximetry 2022-04-17 12:19:00 99 /min [facility] Systolic blood pressure 2022-04-15 20:00:00 157 mm[Hg] [facility] Diastolic blood pressure 2022-04-15 20:00:00 89 mm[Hg] [facility] Heart rate 2022-04-15 20:00:00 102 /min [facility] Respiratory rate 2022-04-15 20:00:00 19 /min [facility] Oxygen saturation in Arterial blood by Pulse oximetry 2022-04-15 20:00:00 99 /min [facility] Body temperature 2022-04-15 18:41:00 36.11 [facility] Body height 2022-04-15 18:41:00 188 cm [facility] Body weight 2022-04-15 18:41:00 145.151 kg [facility] BMI 2022-04-15 18:41:00 41.09 kg/m2 [facility] Systolic blood pressure 2022-03-26 19:15:00 125 mm[Hg] [facility] Diastolic blood pressure 2022-03-26 19:15:00 89 mm[Hg] [facility] Heart rate 2022-03-26 19:15:00 99 /min [facility] 2022-03-26 19:15:00 18 /min [facility] Body weight 2022-03-26 19:15:00 144.697 kg [facility] BMI 2022-03-26 19:15:00 40.96 kg/m2 [facility] Oxygen saturation in Arterial blood by Pulse oximetry 2022-03-26 19:15:00 97 /min [facility] Procedures Procedure Date / Time Performed Performing Clinician Source POCT GLUCOSE (AUTOMATED) 2024-04-06 12:32:00 Davide Weiss [facility] MAGNESIUM 2024-04-06 07:46:00 Bj Weiss [facility] BASIC METABOLIC PANEL (NA, K, CL, CO2, GLUCOSE, BUN, CREATININE, CA) 2024-04-06 07:46:00 Debby Pate [facility] CBC WITH DIFF 2024-04-06 07:46:00 Debby Pate [facility] N-TERMINAL PRO-BNP 2024-04-06 07:46:00 Bj Weiss [facility] POCT GLUCOSE (AUTOMATED) 2024-04-06 01:30:00 Davide Weiss [facility] POCT GLUCOSE (AUTOMATED) 2024-04-05 21:50:00 Davide Weiss [facility] POCT GLUCOSE (AUTOMATED) 2024-04-05 17:14:00 Davide Weiss [facility] POCT GLUCOSE (AUTOMATED) 2024-04-05 12:48:00 Davide Weiss [facility] MAGNESIUM 2024-04-05 09:06:00 Isela [facility] HEPATIC FUNCTION PANEL (20440) (ALB,T.PRO,BILI T,BU/BC,ALT,AST,ALK PHOS) 2024-04-05 09:06:00 Isela [facility] BASIC METABOLIC PANEL (NA, K, CL, CO2, GLUCOSE, BUN, CREATININE, CA) 2024-04-05 09:06:00 Isela [facility] CBC WITHOUT DIFF 2024-04-05 09:06:[address] [facility] N-TERMINAL PRO-BNP 2024-04-05 09:06:00 Isela [facility] TROPONIN I 2024-04-05 04:36:00 [facility] POCT GLUCOSE (AUTOMATED) 2024-04-05 01:19:[address] [facility] POCT GLUCOSE (AUTOMATED) 2024-04-04 22:05:00 Davide Weiss debra [facility] TROPONIN I 2024-04-04 22:04:00 [facility] XR CHEST 1 VW 2024-04-04 17:23[facility] 2024-04-04 17:13:[address] [facility] COMP. METABOLIC PANEL ([id number]) 2024-04-04 17:13:00 Ruben [facility] CBC WITH DIFF 2024-04-04 17:13:[facility] N-TERMINAL PRO-BNP 2024-04-04 17:13:00 Ruben [facility] HB ECG ROUTINE & RHYTHM STRIP 2024-04-04 17:02:20 Ruben [facility] CRITICAL CARE 2024-04-04 16:50:00 [facility] THYROID STIMULATING HORMONE 2023-11-19 13:04:00 David Ladd [facility] EXTERNAL PROVIDER - ADC CARDIOLOGY 2023-09-02 06:01:00 Doctor Unassigned, [place] [facility] TRANSTHORACIC ECHO (TTE) COMPLETE W/ CONTRAST 2023-07-30 20:54:00 David Ladd [facility] HEALTH - OTHER 2023-06-03 05:01:00 Doctor Veronique bowden, [place] [facility] AUTHORIZATION FOR RELEASE OF PHI 2023-05-04 05:01:00 Doctor Unassigned, [place] [facility] URINALYSIS 2023-03-28 07:45:[address] Yañez [facility] CT ABDOMEN PELVIS WO CONTRAST 2023-03-28 05:49:38 Kayla Yañezherine [facility] COMP. METABOLIC PANEL ([id number]) 2023-03-28 03:46:00 Kayla Yañezherine [facility] CBC WITH DIFF 2023-03-28 03:46:00 Otilio [facility] ASSIGNMENT OF BENEFITS 2022-10-27 15:17:06 Docto r Unassigned, [place] [facility] - OTHER 2022-08-27 06:01:00 Doctor U gabrielasiraphael, [place] [facility] AUTHORIZATION FOR RELEASE OF PHI 2022-06-12 06:01:00 Doctor Unassigned, [place] [facility] 2022-06-10 06:01:00 Doctor U dennise, [place] [facility] POCT GLUCOSE (AUTOMATED) 2022-06-09 22:52:00 Davide Weiss [facility] COVID-19 (ID NOW RAPID TESTING) 2022-06-09 20:00:00 Rosales Willard [facility] POCT GLUCOSE (AUTOMATED) 2022-06-09 17:56:00 Davide Weiss [facility] POCT GLUCOSE (AUTOMATED) 2022-06-09 13:39:00 Davide Weiss [facility] BASIC METABOLIC PANEL (NA, K, CL, CO2, GLUCOSE, BUN, CREATININE, CA) 2022-06-09 11:16:00 Debby Pate [facility] CBC WITH DIFF 2022-06-09 11:16:00 Debby Pate [facility] POCT GLUCOSE (AUTOMATED) 2022-06-09 02:59:00 Davide Weiss [facility] POCT GLUCOSE (AUTOMATED) 2022-06-08 22:45:00 Davide Weiss [facility] POCT GLUCOSE (AUTOMATED) 2022-06-08 17:33:00 Davide Weiss [facility] BLOOD CULTURE SCREEN 2022-06-08 15:34:00 Criss Leyva [facility] POCT GLUCOSE (AUTOMATED) 2022-06-08 13:38:00 Davide Weiss [facility] COMP. METABOLIC PANEL ([id number]) 2022-06-08 10:57:00 Criss Leyva [facility] CBC WITH DIFF 2022-06-08 10:57:00 Debby Pate [facility] N-TERMINAL PRO-BNP 2022-06-08 10:57:00 Debby Pate [facility] BASIC METABOLIC PANEL (NA, K, CL, CO2, GLUCOSE, BUN, CREATININE, CA) 2022-06-08 03:02:00 Fernanda Sanders [facility] POCT GLUCOSE (AUTOMATED) 2022-06-08 01:25:00 Davide Weiss [facility] POCT GLUCOSE (AUTOMATED) 2022-06-07 21:57:00 Davide Weiss [facility] POCT GLUCOSE (AUTOMATED) 2022-06-07 16:34:00 Davide Weiss [facility] US RETROPERITONEAL LIMITED 2022-06-07 15:10:00 Fernanda Sanders [facility] OSMOLALITY URINE 2022-06-07 13:17[facility]00 [facility] 2022-06-07 13:17:00 Piero Blancas [facility] SODIUM, URINE RANDOM 2022-06-07 13:17:00 Annie Blancas [facility] PROTEIN CREAT RATIO URINE RANDOM 2022-06-07 13:17:00 Marjorie Blancas [facility] POCT GLUCOSE (AUTOMATED) 2022-06-07 12:48:00 Davide Weiss [facility] CREATINE KINASE 2022-06-07 08:47:00 [facility] 2022-06-07 08:47[facility]00 [facility] (NA, K, CL, CO2, GLUCOSE, BUN, CREATININE, CA) 2022-06-07 08:47:00 Debby Pate [facility] CBC WITH DIFF 2022-06-07 08:47:00 Debby Pate Heidi [facility] N-TERMINAL PRO-BNP 2022-06-07 08:47:00 Bj Weiss [facility] POCT GLUCOSE (AUTOMATED) 2022-06-06 21:31:00 Amanda Leyva [facility] POCT GLUCOSE (AUTOMATED) 2022-06-06 16:40:00 [facility] POCT GLUCOSE (AUTOMATED) 2022-06-06 12:48:00 [facility] MRSA / MSSA SCREEN BY PCRSKY 2022-06-06 10:23:00 Debby Pate [facility] CORTISOL AM 2022-06-06 08:34:00 Yared Larios [facility] FREE T4 2022-06-06 08:34:00 Yared Larios [facility] THYROID STIMULATING HORMONE 2022-06-06 08:34:00 Yared Larios [facility] BASIC METABOLIC PANEL (NA, K, CL, CO2, GLUCOSE, BUN, CREATININE, CA) 2022-06-06 08:34:00 Debby Pate [facility] CBC WITH DIFF 2022-06-06 08:34:00 Debby Pate [facility] GLYCOSYLATED HEMOGLOBIN (A1C) 2022-06-06 08:34:00 Yared Larios [facility] CT HEAD WO CONTRAST 2022-06-05 22:02:10 Belk, [facility] XR CHEST 1 VW 2022-06-05 22:01:15 Martínez [facility] URINALYSIS 2022-06-05 21:22:00 Khanh Soliz [facility] URINE DRUG (IMMUNOASSAY) - COMPREHENSIVE DRUG SCREEN W/O REFLEX 2022-06-05 21:22:00 Martínez [facility] AC PANEL 20 + LACTIC ACID 2022-06-05 21:16:00 Martínez [facility] AMMONIA, PLASMA 2022-06-05 21:08:00 Jose Luis Soliz [facility] TROPONIN I 2022-06-05 21:08:00 Khanh Soliz [facility] COMP. METABOLIC PANEL ([id number]) 2022-06-05 21:08:00 Martínez [facility] CBC WITH DIFF 2022-06-05 21:08:00 Martínez [facility] PROTHROMBIN TIME / INR 2022-06-05 21:08:00 Martínez, [facility] HB ECG ROUTINE & RHYTHM STRIP 2022-06-05 21:03:41 Martínez [facility] XR KNEE <3 VW LEFT 2022-06-04 13:32:05 Kimi Yadav [facility] CONSENT/REFUSAL FOR DIAGNOSIS AND TREATMENT 2022-06-04 12:31:14 Doctor Unassigned, [place] [facility] POCT GLUCOSE (AUTOMATED) 2022-06-03 13:19:00 Davide Weiss [facility] MAGNESIUM 2022-06-03 08:07:00 Janiya [facility] COMP. METABOLIC PANEL ([id number]) 2022-06-03 08:07:00 Janiya Waldron [facility] N-TERMINAL PRO-BNP 2022-06-03 08:07:00 Janiya Waldron [facility] POCT GLUCOSE (AUTOMATED) 2022-06-02 22:17:00 Davide Weiss [facility] POCT GLUCOSE (AUTOMATED) 2022-06-02 17:11:00 Farida Armendariz [facility] POCT GLUCOSE (AUTOMATED) 2022-06-02 13:00:00 Farida Armendariz [facility] ACUTE CARE VENOUS BLOOD GAS 2022-06-02 10:01:00 Janiya Waldron [facility] PHOSPHORUS 2022-06-02 09:29:00 Vanita ambreen [facility] VITAMIN B12, LEVEL 2022-06-02 09:29:00 Vanita [facility] TROPONIN I 2022-06-02 09:29:00 Vanita ambreen [facility] COMP. METABOLIC PANEL ([id number]) 2022-06-02 09:29:00 Vanita [facility] CBC WITH DIFF 2022-06-02 09:29:[address] [facility] VITAMIN D, 25-OH 2022-06-02 09:29:[address] [facility] POCT GLUCOSE (AUTOMATED) 2022-06-02 09:17:00 Farida Armendariz [facility] MAGNESIUM 2022-06-02 05:52:00 Bj Weiss [facility] TROPONIN I 2022-06-02 05:52:00 Isela [facility] BASIC METABOLIC PANEL (NA, K, CL, CO2, GLUCOSE, BUN, CREATININE, CA) 2022-06-02 05:52:00 [facility] 2022-06-02 05:52:00 [facility] 2022-06-02 00:25:00 Bj Weiss [facility] POCT GLUCOSE (AUTOMATED) 2022-06-02 00:23:00 Farida Armendariz [facility] POCT GLUCOSE (AUTOMATED) 2022-06-01 21:42:00 Farida Armendariz [facility] XR CHEST 1 VW 2022-06-01 18:05:00 Asad Armendariz Unive [facility] TROPONIN I 2022-06-01 17:45:00 Asad Armendariz [facility] BASIC METABOLIC PANEL (NA, K, CL, CO2, GLUCOSE, BUN, CREATININE, CA) 2022-06-01 17:45:00 Asad Armendariz [facility] CBC WITH DIFF 2022-06-01 17:45:[address] [facility] N-TERMINAL PRO-BNP 2022-06-01 17:45:00 Asad Armendariz [facility] HB ECG ROUTINE & RHYTHM STRIP 2022-06-01 17:37:46 Asad Armendariz [facility] CATH PROCEDURE LOG 2022-05-28 14:33:43 Hallie Greenbergahim [facility] CT ABDOMEN PELVIS W CONTRAST 2022-05-22 17:58:34 Mary Reynaga [facility] LIPASE 2022-05-22 16:29:[address] [facility] TROPONIN I 2022-05-22 16:29:[address] [facility] COMP. METABOLIC PANEL ([id number]) 2022-05-22 16:29:00 Mary Reynaga [facility] CBC WITH DIFF 2022-05-22 16:29:00 [facility]-B[facility] 2022-05-22 16:29:00 Ary Reynaga [facility] POCT GLUCOSE (AUTOMATED) 2022-05-15 16:24:00 Gino Rico [facility] POCT GLUCOSE (AUTOMATED) 2022-05-15 13:10:00 Gino Rico [facility] MAGNESIUM 2022-05-15 09:52:00 [facility] BASIC METABOLIC PANEL (NA, K, CL, CO2, GLUCOSE, BUN, CREATININE, CA) 2022-05-15 09:52:00 Jasen Lee [facility] CBC WITH DIFF 2022-05-15 09:52:00 Jasen Lee [facility] POCT GLUCOSE (AUTOMATED) 2022-05-15 00:56:00 Gino Rico [facility] POCT GLUCOSE (AUTOMATED) 2022-05-14 21:29:00 Gino Rico [facility] POCT GLUCOSE (AUTOMATED) 2022-05-14 13:16:00 Gino Rico [facility] MAGNESIUM 2022-05-14 07:30:[address] [facility] BASIC METABOLIC PANEL (NA, K, CL, CO2, GLUCOSE, BUN, CREATININE, CA) 2022-05-14 07:30:00 Jasen Lee [facility] CBC WITH DIFF 2022-05-14 07:30:00 Jasen Lee [facility] ACTIVATED PARTIAL THRMPLAS MILKA 2022-05-14 07:30:00 Gino Rico [facility] N-TERMINAL PRO-BNP 2022-05-14 07:30:[address] [facility] HOME HEALTH - OTHER 2022-05-14 05:01:00 Doctor Veronique bowden, [place] [facility] POCT GLUCOSE (AUTOMATED) 2022-05-14 00:36:00 Gino Rico [facility] ACTIVATED PARTIAL THRMPLAS MILKA 2022-05-13 21:22:00 Bruce Glover [facility] POCT GLUCOSE (AUTOMATED) 2022-05-13 21:22:00 Gino Rico [facility] POCT GLUCOSE (AUTOMATED) 2022-05-13 17:25:00 Gino Rico [facility] TRANSTHORACIC ECHO (TTE) COMPLETE W/ CONTRAST 2022-05-13 16:40:00 Alireza Ugarte [facility] ACTIVATED PARTIAL THRMPLAS MILKA 2022-05-13 14:50:00 Gino Rico [facility] POCT GLUCOSE (AUTOMATED) 2022-05-13 13:15:00 Gino Rico [facility] HB ECG ROUTINE & RHYTHM STRIP 2022-05-13 12:33:54 Belen [facility] MAGNESIUM 2022-05-13 09:06:[address] [facility] BASIC METABOLIC PANEL (NA, K, CL, CO2, GLUCOSE, BUN, CREATININE, CA) 2022-05-13 09:06:00 Jasen Lee [facility] TROPONIN I 2022-05-13 02:37:00 Prema Solo [facility] ACTIVATED PARTIAL THRMPLAS MILKA 2022-05-13 02:37:00 Gino Rico [facility] POCT GLUCOSE (AUTOMATED) 2022-05-13 02:36:00 Gino Rico [facility] TROPONIN I 2022-05-12 22:13:[facility]) 2022-05-12 20:14:00 Gino Rico [facility] TROPONIN I 2022-05-12 19:24:00 Belen [facility] ACTIVATED PARTIAL THRMPLAS MILKA 2022-05-12 19:24:00 [facility] 2022-05-12 17:16:00 Gino Rico [facility] URIC ACID 2022-05-12 13:19:00 [facility] TROPONIN I 2022-05-12 13:19:[facility] BAS[facility] MET[facility]OLIC PANEL (NA, K, CL, CO2, GLUCOSE, BUN, CREATININE, CA) 2022-05-12 13:19:00 [facility] ACTIVATED PARTIAL THRMPLAS MILKA 2022-05-12 13:07:00 [facility] PO[facility] GLUCOSE (AUTOMATED) 2022-05-12 13:06:00 Gino Rico [facility] HB ECG ROUTINE & RHYTHM STRIP 2022-05-12 12:54[facility]-12 11:07:00 Belen, [facility] BASIC METABOLIC PANEL (NA, K, CL, CO2, GLUCOSE, BUN, CREATININE, CA) 2022-05-12 11:07:00 Belen [facility] ACTIVATED PARTIAL THRMPLAS MILKA 2022-05-12 01:15:00 Belen [facility] POCT GLUCOSE (AUTOMATED) 2022-05-12 01:00:00 Gino Rico [facility] TROPONIN I 2022-05-11 21:17:00 Belen [facility] POCT GLUCOSE (AUTOMATED) 2022-05-11 21:13:00 Gino Rioc [facility] POCT GLUCOSE (AUTOMATED) 2022-05-11 17:58:00 Gino Rico [facility] HB ECG ROUTINE & RHYTHM STRIP 2022-05-11 17:33:51 Belen [facility] CREATININE, URINE RANDOM 2022-05-11 16:48:00 Inessa Glover [facility] UREA NITROGEN, URINE RANDOM 2022-05-11 16:48:00 Kostaks [facility] SODIUM, URINE RANDOM 2022-05-11 16:48:00 Kostadoni [facility] TROPONIN I 2022-05-11 16:45:00 Kostaks [facility] PROTHROMBIN TIME / INR 2022-05-11 16:45:00 K[facility]aks [facility] ACTIVATED PARTIAL THRMPLAS MILKA 2022-05-11 16:45:00 Belen [facility] LACTIC ACID WHOLE BLOOD 2022-05-11 16:45:00 Belen [facility] POCT GLUCOSE (AUTOMATED) 2022-05-11 14:54:00 Hallie Riojas [facility] CT HEAD WO CONTRAST 2022-05-11 08:39:03 Tyrell Olivares [facility] XR CHEST 1 VW 2022-05-11 08:37:00 Prieto Olivares [facility] MAGNESIUM 2022-05-11 08:13:00 Belen [facility] FERRITIN SERUM 2022-05-11 08:13:00 [facility] 2022-05-11 08:13:00 Prieto Olivares [facility] COMP. METABOLIC PANEL ([id number]) 2022-05-11 08:13:00 Prieto Olivares [facility] IRON PANEL 2022-05-11 08:13:00 Bruce Glover [facility] CBC WITH DIFF 2022-05-11 08:13:00 Prieto Olivares [facility] N-TERMINAL PRO-BNP 2022-05-11 08:13:00 [place] Olivares [facility] HB ECG ROUTINE & RHYTHM STRIP 2022-05-11 07:45:49 Prieto Olivares [facility] CONSENT/REFUSAL FOR DIAGNOSIS AND TREATMENT 2022-05-11 07:27:49 Doctor Unassigned, [place] [facility] HOSPITAL ADMISSION 2022-05-11 05:01:00 Doctor Un assigned, [place] [facility] URINALYSIS 2022-05-09 20:53:00 [facility] TROPONIN I 2022-05-09 19:45:00 Pia Watts [facility] COMP. METABOLIC PANEL ([id number]) 2022-05-09 19:45:00 Pia Watts [facility] CBC WITH DIFF 2022-05-09 19:45:00 Pia Watts [facility] RAPID INFLUENZA A/B 2022-05-09 19:45:00 Liyah Watts [facility] N-TERMINAL PRO-BNP 2022-05-09 19:45:00 Singer Pia [facility] XR CHEST 1 VW 2022-05-09 19:43:40 Singer Pia [facility] CONSENT/REFUSAL FOR DIAGNOSIS AND TREATMENT 2022-05-09 18:59:52 Doctor Unassigned, [place] [facility] MAGNESIUM 2022-05-06 09:13:00 Debby Pate [facility] TROPONIN I 2022-05-06 09:13:00 Debby Pate Heidi U [facility] BASIC METABOLIC PANEL (NA, K, CL, CO2, GLUCOSE, BUN, CREATININE, CA) 2022-05-06 09:13:00 Rio Debby Gordon [facility] CBC WITH DIFF 2022-05-06 09:13:00 Rio Debby Heidi [facility] TROPONIN I 2022-05-06 03:01:00 Rio Debby Heidi U [facility] EKG-12 LEAD 2022-05-05 22:35:34 Tomas Mcguire [facility] URINALYSIS 2022-05-05 20:37:00 Tomas Mcguire [facility] MAGNESIUM 2022-05-05 19:55:00 Tomas Mcguire [facility] TROPONIN I 2022-05-05 19:55:00 Tomas Mcguire [facility] THYROID STIMULATING HORMONE 2022-05-05 19:55:00 Debby Pate [facility] COMP. METABOLIC PANEL ([id number]) 2022-05-05 19:55:00 Tomas Mcguire [facility] CBC WITH DIFF 2022-05-05 19:55:00 Tomas Mcguire [facility] GLYCOSYLATED HEMOGLOBIN (A1C) 2022-05-05 19:55:00 Debby Pate [facility] N-TERMINAL PRO-BNP 2022-05-05 19:55:00 Tomas Mcguire [facility] XR CHEST 1 VW 2022-05-05 19:41:28 Tomas Mcguire [facility] MAGNESIUM 2022-04-30 10:01:00 Bj Weiss [facility] BASIC METABOLIC PANEL (NA, K, CL, CO2, GLUCOSE, BUN, CREATININE, CA) 2022-04-30 10:01:00 [facility]-B[facility] 2022-04-30 10:01:00 Isela [facility] POCT GLUCOSE (AUTOMATED) 2022-04-30 01:12:00 Davide Weiss [facility] POCT GLUCOSE (AUTOMATED) 2022-04-29 22:29:00 Davide Weiss [facility] EKG-12 LEAD 2022-04-29 19:06:39 Abilio [facility] COMP. METABOLIC PANEL ([id number]) 2022-04-29 16:58:00 Denis Knox [facility] TROPONIN I 2022-04-29 16:16:00 [facility]ilio [facility] URINALYSIS 2022-04-29 16:16:00 Abilio [facility] N-TERMINAL PRO-BNP 2022-04-29 16:16:00 Nicole Knox [facility] XR CHEST 1 VW 2022-04-29 15:54:35 Denis Knox [facility] CBC WITH DIFF 2022-04-29 15:37:00 Denis Knox [facility] PROTHROMBIN TIME / INR 2022-04-29 15:37:00 Valerie Knox [facility] COVID-19 (ID NOW RAPID TESTING) 2022-04-29 15:37:00 Denis Knox [facility] HOME HEALTH - OTHER 2022-04-29 05:01:00 Doctor Veronique bowden, [place] [facility] TROPONIN I 2022-04-23 15:40:00 Janiya Waldron [facility] MAGNESIUM 2022-04-23 09:35:00 Criss Leyva [facility] TROPONIN I 2022-04-23 09:35:00 Janiya Waldron [facility] BASIC METABOLIC PANEL (NA, K, CL, CO2, GLUCOSE, BUN, CREATININE, CA) 2022-04-23 09:35:00 Criss Leyva [facility] CBC WITH DIFF 2022-04-23 09:35:00 Criss Leyva [facility] TROPONIN I 2022-04-22 16:29:[address] [facility] COMP. METABOLIC PANEL ([id number]) 2022-04-22 15:26:00 Pia Watts [facility] XR CHEST 1 VW 2022-04-22 14:09:51 Pia Watts [facility] TROPONIN I 2022-04-22 13:59:00 Pia Watts [facility] CBC WITH DIFF 2022-04-22 13:59:00 Singer [facility] N-TERMINAL PRO-BNP 2022-04-22 13:59:00 Singer [facility] HB ECG ROUTINE & RHYTHM STRIP 2022-04-22 13:51:27 Singer [facility] CONSENT/REFUSAL FOR DIAGNOSIS AND TREATMENT 2022-04-17 12:16:10 Doctor Unassigned, [place] [facility] TROPONIN I 2022-04-15 19:05:00 [facility]OLIC PANEL (NA, K, CL, CO2, GLUCOSE, BUN, CREATININE, CA) 2022-04-15 19:05:00 Joseph Quinones [facility] CBC WITH DIFF 2022-04-15 19:05:00 [facility] N-[facility]MIN[facility]-BNP 2022-04-15 19:05:00 Shawna Quinones [facility] CONSENT/REFUSAL FOR DIAGNOSIS AND TREATMENT 2022-04-15 18:34:25 Doctor Unassigned, [place] [facility] HOME HEALTH - OTHER 2022-04-09 05:01:00 Doctor Veronique nassigned, [place] [facility] HEALTH [id number] 2022-03-12 05:01:00 Doctor Unass igned, [place] [facility] [id number] 2021-03-01 00:00:00 KHANG [facility] [id number] 2021-03-01 00:00:00 KHANG [facility] [id number] 2021-01-03 00:00:00 DU [facility] [id number] 2020-12-04 00:00:00 RACHELLELO [facility] [id number] 2020-12-04 00:00:00 RACHELLELO [facility] Encounters Start Date/Time End Date/Time Encounter Type Admission Type Attending Clinicians Care Facility Care Department Encounter ID Source 2022-06-04 12:56:19 Outpatient SEBLE SANDERSON [facility] LEONARDA [id number] [facility] 2021-06-04 08:19:20 Emergency [facility] [id number] [facility] 2021-06-04 07:09:20 Emergency [facility] [id number] [facility] 2021-06-04 03:59:42 Emergency [facility] [id number] [facility] 2021-06-04 02:43:50 Emergency [facility] [id number] [facility] 2021-06-03 23:52:27 Emergency [facility] [id number] [facility] 2021-06-03 14:16:29 Emergency [facility] [id number] [facility] 2021-06-03 10:28:47 Emergency [facility] [id number] [facility] 2021-06-03 10:04:22 Emergency [facility] [id number] [facility] 2021-06-03 09:15:54 Emergency [facility] [id number] [facility] 2021-06-03 02:12:32 Emergency [facility] [id number] [facility] 2021-06-02 22:26:27 Emergency [facility] [id number] [facility] 2021-06-02 22:18:01 Emergency [facility] [id number] [facility] 2021-06-02 21:45:53 Emergency [facility] [id number] [facility] 2021-06-02 18:24:09 Emergency [facility] [id number] [facility] 2021-06-02 15:33:14 Emergency [facility] [id number] [facility] 2021-06-02 13:53:03 Emergency [facility] [id number] [facility] 2021-06-02 11:21:12 [place] [facility] [id number] [facility] 2021-06-02 07:19:21 Emergency [facility] [id number] [facility] 2021-06-02 02:28:47 Emergency [facility] [id number] [facility] 2021-06-02 00:03:36 Emergency [facility] [id number] [facility] 2021-06-01 18:26:39 Emergency [facility] [id number] [facility] 2021-06-01 16:19:54 Emergency [facility] [id number] [facility] 2021-06-01 07:53:57 Emergency [facility] [id number] [facility] 2021-05-31 22:36:25 Emergency [facility] [id number] [facility] 2021-05-31 19:41:41 Emergency [facility] [id number] [facility] 2021-05-31 10:37:26 [facility] [id number] [facility] 2021-05-31 04:43:40 Emergency [facility] [id number] [facility] 2021-05-30 23:56:43 [facility] [id number] [facility] 2021-05-30 21:10:05 Emergency [facility] [id number] [facility] 2021-05-30 16:21:58 Emergency [facility] [id number] [facility] 2021-05-30 14:28:28 Emergency [facility] [id number] [facility] 2021-05-30 11:04:08 [facility] [id number] [facility] 2024-04-28 08:00:52 2024-04-28 23:59:00 Outpatient DAVID MATUTE [facility] [id number] [facility] 2024-04-28 08:00:52 2024-04-28 23:59:00 Hospital Encounter David LaddTej [facility] 1.2.840.114 350.1.13.10 4.2.7.2.686 [id number] [facility] 2024-04-25 11:30:00 2024-04-25 11:30:00 Office Visit David LaddTej [facility] 1.2.840.114 350.1.13.10 4.2.7.2.686 [id number] [facility] 2024-04-25 11:30:00 2024-04-25 10:56:30 Outpatient R DAVID LADD [facility] [id number] [facility] 2024-04-18 00:00:00 2024-04-20 13:08:56 Refill Brooks Barker [facility] 1.2.840.114 350.1.13.10 4.2.7.2.686 [id number] [facility] 2024-04-19 10:00:00 2024-04-19 10:30:00 Office Visit Deysi Bone [facility] 1.2.840.114 350.1.13.10 4.2.7.2.686 [id number] [facility] 2024-04-19 10:00:00 2024-04-19 10:00:00 Outpatient R [facility]SI [facility] [id number] [facility] 2024-04-18 00:00:00 2024-04-19 08:42:53 Telephone Brooks Barker [facility] 1.2.840.114 350.1.13.10 4.2.7.2.686 [id number] [facility] 2024-04-18 00:00:00 2024-04-18 17:24:59 Refill Brooks Barker [facility] 1.2.840.114 350.1.13.10 4.2.7.2.686 [id number] [facility] 2024-04-18 13:00:00 2024-04-18 13:00:00 Outpatient R REBECCA MICHELE [facility] [id number] [facility] 2024-04-13 13:00:00 2024-04-13 13:00:00 Office Visit Brooks Barker [facility] 1.2.840.114 350.1.13.10 4.2.7.2.686 [id number] [facility] 2024-04-13 12:00:00 2024-04-13 12:00:00 Office [facility] Jo[facility] 1.2.840.114 350.1.13.10 4.2.7.2.686 [id number] [facility] 2024-04-13 13:00:00 2024-04-13 10:36:08 Outpatient R BROOKS BARKER OGECHUKWU [facility] [id number] [facility] 2024-04-07 00:00:00 2024-04-07 14:33:35 Transition of Care Flip Zavala Michele [address] 1..840.114 350.1.13.10 4.2.7.2.686 [id number] [facility] 2024-04-06 14:30:00 2024-04-06 14:30:00 Outpatient R BROOKS BARKER OGECHUKWU [facility] [id number] [facility] 2024-04-04 12:00:00 2024-04-06 12:17:00 Outpatient X BJ WEISS [facility] [id number] [facility] 2024-04-04 12:00:00 2024-04-06 12:17:00 Hospital Encounter Michelle Miranda Jelani [facility] 1.2.840.114 350.1.13.10 4.2.7.2.686 [id number] [facility] 2024-04-05 00:00:00 2024-04-05 16:22:38 Telephone MjBrooks [facility] 1.2.840.114 350.1.13.10 4.2.7.2.686 [id number] [facility] 2024-04-05 11:30:00 2024-04-05 11:30:00 Outpatient DAVID MATUTE [facility] [id number] [facility] 2024-04-01 11:00:00 2024-04-01 11:30:00 Case Management Ellis Munoz [place] 1.2.840.114 350.1.13.10 4.2.7.2.686 [id number] [facility] 2024-04-01 11:00:00 2024-04-01 11:00:00 Outpatient KIM GUPTA [facility] [id number] [facility] 2024-03-24 09:00:00 2024-03-24 09:00:00 Outpatient DAVID MATUTE [facility] [id number] [facility] 2024-03-22 00:00:00 2024-03-22 11:12:36 Telephone MjBrooks [facility] 1.2.840.114 350.1.13.10 4.2.7.2.686 [id number] [facility] 2024-03-10 16:00:00 2024-03-10 16:00:00 Outpatient DEYSI BUCK SELENA [facility] [id number] [facility] 2024-03-04 19:39:00 2024-03-04 21:54:00 Emergency X FARIDA FREEMANDANE [facility] ERT [id number] [facility] 2024-03-04 19:39:00 2024-03-04 21:54:00 [facility] [id number] [facility] 2024-02-26 10:30:00 2024-02-26 11:00:00 Case Management Alexander, [facility] MEDICAL OFFICE BUILDING [id number] [facility] 2024-02-26 10:30:00 2024-02-26 10:30:00 [facility] [id number] [facility] 2024-02-25 00:00:00 2024-02-25 15:47:18 [facility] [id number] 350.1.13.10 4.2.7.2.686 [id number] [id number] [facility] 2024-02-25 00:00:00 2024-02-25 13:35:04 [facility] 1.2.840.114 350.1.13.10 4.2.7.2.686 [id number] [facility] 2024-02-25 00:00:00 2024-02-25 08:10:38 Telephone Brooks Barker [facility] BUILD[facility] 1.2.840.114 350.1.13.10 4.2.7.2.686 [id number] [id number] [facility] 2024-02-03 00:00:00 2024-02-03 15:29:57 Telephone Brooks Barker [facility] 1.2.840.114 350.1.13.10 4.2.7.2.686 [id number] [id number] [facility] 2024-01-29 11:00:00 2024-01-29 11:30:00 Case Management Ellis Munoz [facility] MEDICAL OFFICE BUILDING 1.2.840.114 350.1.13.10 4.2.7.2.686 [id number] [facility] 2024-01-29 11:00:00 2024-01-29 11:00:00 Outpatient [facility] [id number] [facility] 2024-01-18 00:00:00 2024-01-20 14:22:19 Telephone Brooks Barker [facility] 1.2.840.114 350.1.13.10 4.2.7.2.686 [id number] [id number] [facility] 2020-08-23 00:00:00 2024-01-19 02:21:10 Mobile Device Encounter Debby Brown [facility] 1.2.840.114 350.1.13.10 4.2.7.2.686 [id number] [facility] 2024-01-13 00:00:00 2024-01-13 14:24:33 Case Management Jorge Heath [facility] NAL BUILD[facility] 1.2.840.114 350.1.13.10 4.2.7.2.686 [id number] [facility] 2024-01-13 00:00:00 2024-01-13 11:48:09 Telephone Brooks Barker [facility] NAL BU[facility] 1.2.840.114 350.1.13.10 4.2.7.2.686 [id number] [facility] 2024-01-06 14:45:00 2024-01-06 14:45:00 Outpatient R GATO STOKES CRAIG [facility] [id number] [facility] 2024-01-05 14:00:00 2024-01-05 14:11:14 Outpatient R HOWARD BARKERDEIYSJOE [facility] [id number] [facility] 2024-01-05 14:00:00 2024-01-05 14:11:14 Office Visit Brooks Barker [facility] BUILD[facility] 1.2.840.114 350.1.13.10 4.2.7.2.686 [id number] [facility] 2023-12-25 10:00:00 2023-12-25 10:00:00 Outpatient DAVID MATUTE [facility] [id number] [facility] 2023-12-18 13:30:00 2023-12-18 14:00:00 Case Management Ellis Munoz [facility] OFFICE BUILDING 1.2.840.114 350.1.13.10 4.2.7.2.686 [id number] [facility] 2023-12-18 13:30:00 2023-12-18 13:30:00 Outpatient DAVID MATUTE [facility] [id number] [facility] 2023-11-25 00:00:00 2023-11-25 00:00:00 Outpatient R [facility] [id number] [facility] 2023-11-24 00:00:00 2023-11-24 00:00:00 Telephone David Ladd JairoTejNoreenTej [facility] 1.2.840.114 350.1.13.10 4.2.7.2.686 [id number] [facility] 2023-11-23 00:00:00 2023-11-23 00:00:00 Telephone David Ladd [facility] 1.2.840.114 350.1.13.10 4.2.7.2.686 [id number] [facility] 2023-11-19 08:30:00 2023-11-19 08:30:00 Registration Rep Visit 2, Adc Lab Wilberto Anadane JairoTejNoreenTej [facility] 1.2.840.114 350.1.13.10 4.2.7.2.686 [id number] [facility] 2023-11-19 08:30:00 2023-11-19 08:05:24 Outpatient R LADDANADANE [facility] [id number] [facility] 2023-11-18 14:30:00 2023-11-18 15:23:43 Outpatient R LADDANADANE [facility] [id number] [facility] 2023-11-18 14:30:00 2023-11-18 15:23:43 Office Visit Wilberto Anadane JairoTejNoreenTej [facility] 1.2.840.114 350.1.13.10 4.2.7.2.686 [id number] [id number] [facility] 2023-11-13 16:30:00 2023-11-13 17:00:00 Case Management Ellis Munoz [facility] MEDICAL OFFICE BUILDING 1.2.840.114 350.1.13.10 4.2.7.2.686 [id number] [facility] 2023-11-13 16:30:00 2023-11-13 16:30:00 Outpatient R [facility] [id number] [facility] 2023-10-09 13:30:00 2023-10-09 13:30:00 Outpatient R [facility] [id number] [facility] 2023-10-06 00:00:00 2023-10-06 00:00:00 Outpatient R [facility] [id number] [facility] 2023-09-04 09:00:00 2023-09-04 09:30:00 Case Management [facility] 1.2.840.114 350.1.13.10 4.2.7.2.686 [id number] [facility] 2023-09-04 09:00:00 2023-09-04 09:00:00 Outpatient R RIO [facility]NE[facility]HO [facility] [id number] [facility] 2023-09-02 13:30:00 2023-09-02 14:05:21 Outpatient R DAVID LADD [facility] [id number] [facility] 2023-09-02 13:30:00 2023-09-02 14:05:21 Office Visit David Ladd [facility] BUILD[facility] 1.2.840.114 350.1.13.10 4.2.7.2.686 [id number] [facility] 2023-09-02 00:00:00 2023-09-02 00:00:00 Orders Only Doctor Unassigned, [place] [facility] 1.2.840.114 350.1.13.10 4.2.7.2.686 [id number] [facility] 2023-09-01 00:00:00 2023-09-01 00:00:00 Outpatient R [facility] [id number] [facility] 2023-08-27 00:00:00 2023-08-27 00:00:00 Outpatient R [facility] [id number] [facility] 2023-08-06 00:00:00 2023-08-06 00:00:00 Telephone Cornelia Sanderson [facility] 1.2.840.114 350.1.13.10 4.2.7.2.686 [id number] [facility] 2023-08-04 00:00:00 2023-08-04 00:00:00 Telephone David Ladd [facility] 1.2.840.114 350.1.13.10 4.2.7.2.686 [id number] [facility] 2023-07-31 08:00:00 2023-07-31 08:30:00 Case Management Alexander Cardiokimberly Radha LindsayJonathan [facility] MEDICAL OFFICE BUILDING 1.2.840.114 350.1.13.10 4.2.7.2.686 [id number] [facility] 2023-07-31 08:00:00 2023-07-31 08:00:00 Outpatient R JONATHAN LINDSAY [facility] [id number] [facility] 2023-07-30 13:12:17 2023-07-30 23:59:00 Outpatient R DAVID LADD [facility] [id number] [facility] 2023-07-30 13:12:17 2023-07-30 23:59:00 Hospital Encounter David Ladd [facility] 1..840.114 350.1.13.10 4.2.7.2.686 [id number] [facility] 2023-06-19 08:00:00 2023-06-19 08:30:00 Case Management Alexander Cardiomem Interp Jose Cruz [facility] MEDICAL OFFICE BUILDING 1..840.114 350.1.13.10 4.2.7.2.686 [id number] [facility] 2023-06-19 08:00:00 2023-06-19 08:00:00 Outpatient R JOSE CRUZ PIERCE [facility] [id number] [facility] 2023-06-03 00:00:00 2023-06-03 00:00:00 Outpatient R [facility] [id number] [facility] 2023-06-03 00:00:00 2023-06-03 00:00:00 Orders Only Doctor Unassigned, [place] [facility] 1..840.114 350.1.13.10 4.2.7.2.686 [id number] [facility] 2023-05-22 14:30:00 2023-05-22 15:00:00 Case Management Alexander Cardiomem Interp Neftali Jonathan [facility] MEDICAL OFFICE BUILDING 1.2.840.114 350.1.13.10 4.2.7.2.686 [id number] [facility] 2023-05-22 14:30:00 2023-05-22 14:30:00 Outpatient R JONATHAN LINDSAY [facility] [id number] [facility] 2023-05-07 09:00:00 2023-05-07 09:00:00 Outpatient R SEBLE PRICE [facility] [id number] [facility] 2023-05-04 00:00:00 2023-05-04 00:00:00 Orders Only Doctor Unassigned, [place] [facility] 1..840.114 350.1.13.10 4.2.7.2.686 [id number] [facility] 2023-05-01 10:30:00 2023-05-01 11:04:31 Outpatient R DAVID LADD [facility] [id number] [facility] 2023-05-01 10:30:00 2023-05-01 11:04:31 Office Visit David Ladd [facility] NAL BUILD[facility] 1..840.114 350.1.13.10 4.2.7.2.686 [id number] [facility] 2023-04-17 16:00:00 2023-04-17 16:30:00 Case Management Alexander CardioJonathan Ballesteros [facility] OFFICE BUILDING 1..840.114 350.1.13.10 4.2.7.2.686 [id number] [facility] 2023-04-17 16:00:00 2023-04-17 16:00:00 Outpatient JONATHAN DIAZ [facility] [id number] [facility] 2023-04-09 10:15:00 2023-04-09 10:40:41 Office Visit Seble Price [facility] 1..840.114 350.1.13.10 4.2.7.2.686 [id number] [facility] 2023-04-09 09:00:00 2023-04-09 09:00:00 Outpatient R KELLY KNOWLES [facility] [id number] [facility] 2023-03-27 20:26:00 2023-03-28 05:56:00 Emergency X JORGE YAÑEZ [facility] ERT [id number] [facility] 2023-03-27 20:26:00 2023-03-28 05:56:00 Emergency Jorge Yañez [facility] 1.2.840.114 350.1.13.10 4.2.7.2.686 [id number] [facility] 2023-03-13 15:30:00 2023-03-13 16:00:00 Case Management [facility] 1.2.840.114 350.1.13.10 4.2.7.2.686 [id number] [facility] 2023-03-13 15:30:00 2023-03-13 15:30:00 [id number] 2023-02-09 09:00:00 2023-02-09 09:00:00 Outpatient DAVID MATUTE [facility] [id number] [facility] 2023-02-06 11:07:00 2023-02-06 23:59:00 Hospital Encounter Rebecca Palmer BUILDING 1..840.114 350.1.13.10 4.2.7.2.686 [id number] [facility] 2023-02-06 14:30:00 2023-02-06 15:00:00 Case Management [facility] 1..840.114 350.1.13.10 4.2.7.2.686 [id number] [facility] 2023-02-06 14:30:00 2023-02-06 14:30:00 [facility] [id number] 2023-02-06 00:00:00 2023-02-06 00:00:00 [facility] [id number] [facility] 2023-01-02 10:30:00 2023-01-02 11:00:00 Case Management Alexander Cardiomem Interp Jonathan Lindsay [facility] MEDICAL OFFICE BUILDING 1..840.114 350.1.13.10 4.2.7.2.686 [id number] [facility] 2023-01-02 10:30:00 2023-01-02 10:30:00 Outpatient R JONATHAN LINDSAY [facility] [id number] [facility] 2022-11-28 12:00:00 2022-11-28 16:59:18 Case Management Alexander Cardiomem Radha Billingsley [facility] MEDICAL OFFICE BUILDING 1..840.114 350.1.13.10 4.2.7.2.686 [id number] [facility] 2022-11-28 12:00:00 2022-11-28 12:00:00 Outpatient R [facility] [id number] [facility] 2022-10-27 10:30:00 2022-10-27 11:10:01 Outpatient R DAVID LADD [facility] [id number] [facility] 2022-10-27 10:30:00 2022-10-27 11:10:01 Office Visit David Ladd [facility] BUILDING 1..840.114 350.1.13.10 4.2.7.2.686 [id number] [facility] 2022-10-27 00:00:00 2022-10-27 00:00:00 Orders Only Doctor Unassigned, [place] [facility] 1..840.114 350.1.13.10 4.2.7.2.686 [id number] [facility] 2022-10-24 12:30:00 2022-10-24 13:00:00 Case Management Alexander Cardiomem Sharmainep Jonathan Lindsay [facility] MEDICAL OFFICE BUILDING 1.2.840.114 350.1.13.10 4.2.7.2.686 [id number] [facility] 2022-10-24 12:30:00 2022-10-24 12:30:00 Outpatient R JONATHAN LINDSAY [facility] [id number] [facility] 2022-10-02 08:20:00 2022-10-02 23:59:00 Outpatient R DAVID LADD [facility] [id number] [facility] 2022-09-24 10:00:00 2022-09-24 12:09:47 Outpatient R TANA WHITMORE [facility] [id number] [facility] 2022-09-24 10:00:00 2022-09-24 12:09:47 Office Visit Tana Whitmore [facility] NAL BUILDING 1.2.840.114 350.1.13.10 4.2.7.2.686 [id number] [facility] 2022-09-19 10:00:00 2022-09-19 10:30:00 Case Management Ellis Munoz [facility] MEDICAL OFFICE BUILDING 1.2.840.114 350.1.13.10 4.2.7.2.686 [id number] [facility] 2022-09-19 10:00:00 2022-09-19 10:00:00 Outpatient R [facility] [id number] [facility] 2022-08-27 00:00:00 2022-08-27 00:00:00 Orders Only Doctor Unassigned, [place] [facility] 1.2.840.114 350.1.13.10 4.2.7.2.686 [id number] [facility] 2022-08-21 10:00:00 2022-08-21 10:08:22 Outpatient R DAVID LADD [facility] [id number] [facility] 2022-08-21 10:00:00 2022-08-21 10:08:22 Office Visit David Ladd JairoTejNoreenTej [facility] BUILDING 1.2.840.114 350.1.13.10 4.2.7.2.686 [id number] [facility] 2022-08-21 09:20:00 2022-08-21 09:40:00 Office Visit Cornelia Sanderson [facility] BUILDING 1.2.840.114 350.1.13.10 4.2.7.2.686 [id number] [facility] 2022-08-15 11:00:00 2022-08-15 11:30:00 Case Management AlexanderEllisakash Neftali [facility] OFFICE BUILDING 1.2.840.114 350.1.13.10 4.2.7.2.686 [id number] [facility] 2022-08-15 11:00:00 2022-08-15 11:00:00 [facility] [id number] 2022-07-14 00:00:00 2022-07-14 00:00:00 Telephone Maria E Fischer [facility] BUILDING 1.2.840.114 350.1.13.10 4.2.7.2.686 [id number] [facility] 2022-07-11 11:00:00 2022-07-11 11:30:00 Case Management [facility] 1.2.840.114 350.1.13.10 4.2.7.2.686 [id number] [facility] 2022-07-11 11:00:00 2022-07-11 11:00:00 Outpatient R LINDSAYJONATHAN [facility] [id number] [facility] 2022-06-30 16:30:00 2022-06-30 16:30:00 Outpatient R ANA LUISAYURIDIAYe TAYLORFRANCESCAJUAN WHALEY [facility] [id number] [facility] 2022-06-17 14:20:00 2022-06-17 14:20:00 Outpatient R TANA WHITMORE [facility] [id number] [facility] 2022-06-16 00:00:00 2022-06-16 00:00:00 Telephone Adrianna Heath [facility] 1..114 350.1.13.10 4.2.7.2.686 [id number] [facility] 2022-06-13 15:30:00 2022-06-13 15:30:00 Outpatient ADRIANNA LUCAS [facility] [id number] [facility] 2022-06-12 00:00:00 2022-06-12 00:00:00 Orders Only Doctor Unassigned, [place] [facility] 1..114 350.1.13.10 4.2.7.2.686 [id number] [facility] 2022-06-10 00:00:00 2022-06-10 00:00:00 Transition of Care Page Seth 1..114 350.1.13.10 4.2.7.2.686 [id number] [facility] 2022-06-10 00:00:00 2022-06-10 00:00:00 Orders Only Doctor Unassigned, [place] [facility] 1.0.114 350.1.13.10 4.2.7.2.686 [id number] [facility] 2022-06-05 15:57:00 2022-06-09 18:30:00 Inpatient X BJ WEISS [facility] DIONISIO [id number] [facility] 2022-06-05 15:57:00 2022-06-09 18:30:00 Hospital Encounter Khanh Soliz, Criss Weiss, Bj [facility] 1.2.840.114 350.1.13.10 4.2.7.2.686 [id number] [facility] 2022-06-06 11:00:00 2022-06-06 11:30:00 Case Management Ellis Munoz Trudy [facility] MEDICAL OFFICE BUILDING 1.2.840.114 350.1.13.10 4.2.7.2.686 [id number] [facility] 2022-06-05 00:00:00 2022-06-05 00:00:00 Telephone Cornelia Sanderson [facility] NAL BUILDING 1.2840.114 350.1.13.10 4.2.7.2.686 [id number] [facility] 2022-06-04 07:48:00 2022-06-04 10:01:00 Emergency X LEIFKIMI [facility] ERT [id number] [facility] 2022-06-04 07:48:00 2022-06-04 10:01:00 Emergency Kimi Yadav S [facility] 1.2.840.114 350.1.13.10 4.2.7.2.686 [id number] [facility] 2022-06-04 00:00:00 2022-06-04 00:00:00 Transition of Care Page Seth 1.2.840.114 350.1.13.10 4.2.7.2.686 [id number] [facility] 2022-06-01 12:35:00 2022-06-03 11:25:00 Inpatient X BJ WEISS [facility] DIONISIO [id number] [facility] 2022-06-01 12:35:00 2022-06-03 11:25:00 Hospital Encounter Asad Armendariz Jelani [facility] 1.2840.114 350.1.13.10 4.2.7.2.686 [id number] [facility] 2022-05-28 06:31:00 2022-05-28 13:37:00 Outpatient R [facility] [id number] [facility] 2022-05-28 06:31:00 2022-05-28 13:37:00 Hospital Encounter [facility] 1.2.840.114 350.1.13.10 4.2.7.2.686 [id number] [facility] 2022-05-28 00:00:00 2022-05-28 00:00:00 Transition of Care Lilli Mcneil 1.2.840.114 350.1.13.10 4.2.7.2.686 [id number] [facility] 2022-05-23 00:00:00 2022-05-23 00:00:00 Telephone [facility] 1.2.840.114 350.1.13.10 4.2.7.2.686 [id number] [facility] 2022-05-22 10:49:00 2022-05-22 15:18:00 Emergency X MARY REYNAGA [facility] ERT [id number] [facility] 2022-05-22 10:49:00 2022-05-22 15:18:00 Emergency Mary Reynaga [facility] 1.2.840.114 350.1.13.10 4.2.7.2.686 [id number] [facility] 2022-05-22 00:00:00 2022-05-22 00:00:00 Telephone Kim Jones [facility] 1.2840.114 350.1.13.10 4.2.7.2.686 [id number] [facility] 2022-05-21 10:00:00 2022-05-21 10:00:00 Outpatient R MYRANDA TANA [facility] [id number] [facility] 2022-05-20 15:40:00 2022-05-20 15:40:00 Outpatient R MYRAKANDACE TANA [facility] [id number] [facility] 2022-05-20 12:02:00 2022-05-20 13:33:00 Emergency Doris Amaral [facility] 1.2840.114 350.1.13.10 4.2.7.2.686 [id number] [facility] 2022-05-20 09:30:00 2022-05-20 09:30:00 [facility].114 350.1.13.10 4.2.7.2.686 [id number] [facility] 2022-05-20 09:30:00 2022-05-20 09:08:19 Outpatient R VICKI [facility] E[facility] [id number] [facility] 2022-05-20 00:00:00 2022-05-20 00:00:00 Telephone David Ladd [facility] 1.2.840.114 350.1.13.10 4.2.7.2.686 [id number] [facility] 2022-05-20 00:00:00 2022-05-20 00:00:00 Telephone Sunshine Klein [facility] NAL BUILDING 1.2.840.114 350.1.13.10 4.2.7.2.686 [id number] [facility] 2022-05-19 13:30:00 2022-05-19 14:40:01 Office Visit Brooks Barker [facility] BUILDING 1.2.840.114 350.1.13.10 4.2.7.2.686 [id number] [facility] 2022-05-19 10:00:00 2022-05-19 10:00:00 Outpatient ADRIANNA LUCAS [facility] [id number] [facility] 2022-05-16 08:15:00 2022-05-16 08:15:00 Outpatient KIM HU [facility] [id number] [facility] 2022-05-16 00:00:00 2022-05-16 00:00:00 Transition of Care Adolfo Chelo [facility] 1.2.840.114 350.1.13.10 4.2.7.2.686 [id number] [facility] 2022-05-11 02:38:00 2022-05-15 18:44:00 Hospital En[facility] Morun[facility] 1..840.114 350.1.13.10 4.2.7.2.686 [id number] [facility] 2022-05-14 09:40:00 2022-05-14 09:40:00 Outpatient R SUNSHINE KLEIN STRAUTWandy [facility] [id number] [facility] 2022-05-14 00:00:00 2022-05-14 00:00:00 Telephone Sunshine Klein [facility] 1..840.114 350.1.13.10 4.2.7.2.686 [id number] [facility] 2022-05-12 15:00:00 2022-05-12 15:00:00 Outpatient R JUAN MAZARIEGOS [facility] [id number] [facility] 2022-05-10 00:00:00 2022-05-10 00:00:00 Nurse Triage Alisa Gonzalez [facility] 1..840.114 350.1.13.10 4.2.7.2.686 [id number] [facility] 2022-05-09 14:14:00 2022-05-09 16:59:00 Emergency X SINGER PIA [facility] ERT [id number] [facility] 2022-05-09 14:14:00 2022-05-09 16:59:00 Emergency Pia Watts [facility] 1.2.840.114 350.1.13.10 4.2.7.2.686 [id number] [facility] 2022-05-09 13:30:00 2022-05-09 14:01:50 Outpatient R BROOKS BARKER OGECHUKWU [facility] [id number] [facility] 2022-05-09 13:30:00 2022-05-09 14:01:50 Office Visit Brooks Barker [facility] 1.2.840.114 350.1.13.10 4.2.7.2.686 [id number] [facility] 2022-05-09 13:30:00 2022-05-09 14:01:50 Outpatient R BROOKS BARKER, BROOKS [facility] ERT [id number] [facility] 2022-05-07 00:00:00 2022-05-07 00:00:00 Transition of Care Chelo Mata [facility] 1.2.840.114 350.1.13.10 4.2.7.2.686 [id number] [facility] 2022-05-05 14:17:00 2022-05-06 11:24:00 Outpatient X CRISS LEYVA [facility] [id number] [facility] 2022-05-05 14:17:00 2022-05-06 11:24:00 Emergency Tomas Mcguire [facility] 1.2.840.114 350.1.13.10 4.2.7.2.686 [id number] [facility] 2022-05-03 00:00:00 2022-05-03 00:00:00 Brooks Izaguirre [facility] 1.2.840.114 350.1.13.10 4.2.7.2.686 [id number] [facility] 2022-05-01 00:00:00 2022-05-01 00:00:00 Transition of Care Page Seth ALEX [facility] 1.2.840.114 350.1.13.10 4.2.7.2.686 [id number] [facility] 2022-04-29 10:27:00 2022-04-30 11:35:00 Outpatient X BJ WEISS [facility] DIONISIO [id number] [facility] 2022-04-29 10:27:00 2022-04-30 11:35:00 Emergency Denis Knox Jelani [facility] 1.2.840.114 350.1.13.10 4.2.7.2.686 [id number] [facility] 2022-04-28 13:00:00 2022-04-28 14:02:49 Outpatient R KIM JONES [facility] [id number] [facility] 2022-04-28 13:00:00 2022-04-28 14:02:49 Office Visit Kim Jones [facility] 1.840.114 350.1.13.10 4.2.7.2.686 [id number] [facility] 2022-04-24 00:00:00 2022-04-24 00:00:00 Transition of Care Erica Sousa [facility] 1..840.114 350.1.13.10 4.2.7.2.686 [id number] [facility] 2022-04-22 08:43:00 2022-04-23 11:50:00 Outpatient X CRISS LEYVA [facility] [facility] [id number] [facility] 2022-04-22 08:43:00 2022-04-23 11:50:00 Emergency Pia Watts David [facility] 1.840.114 350.1.13.10 4.2.7.2.686 [id number] [facility] 2022-04-17 07:23:00 2022-04-17 08:09:00 Emergency X PIA WATTS [facility] ERT [id number] [facility] 2022-04-17 07:23:00 2022-04-17 08:09:00 Emergency Pia Watts [facility] 1.840.114 350.1.13.10 4.2.7.2.686 [id number] [facility] 2022-04-16 14:00:00 2022-04-16 14:00:00 Outpatient [facility] [id number] [facility] 2022-04-15 13:39:00 2022-04-15 16:22:00 Emergency X JOSEPH QUINONES [facility] ERT [id number] [facility] 2022-04-15 13:39:00 2022-04-15 16:22:00 Emergency Joseph Quinones [facility] 1.2.840.114 350.1.13.10 4.2.7.2.686 [id number] [facility] 2022-04-09 16:00:00 2022-04-09 16:00:00 Outpatient Paul MONTALVO [facility] [id number] [facility] 2022-04-09 00:00:00 2022-04-09 00:00:00 Orders Only Doctor Unassigned, [place] [facility] 1.2840.114 350.1.13.10 4.2.7.2.686 [id number] [facility] 2022-04-03 00:00:00 2022-04-03 00:00:00 Transition of Care Page Seth 1.2840.114 350.1.13.10 4.2.7.2.686 [id number] [facility] 2022-03-28 19:05:00 2022-04-02 15:00:00 Inpatient X TONYA CARRION [facility] [id number] [facility] 2022-03-28 19:05:00 2022-04-02 15:00:00 Hospital Encounter Karine Loja, Steven Gamino, Tonya Porras [facility] 1.2840.114 350.1.13.10 4.2.7.2.686 [id number] [facility] 2022-03-28 19:05:00 2022-04-02 15:00:00 Inpatient X TONYA CARRION [facility] [id number] [facility] 2022-04-01 14:00:00 2022-04-01 14:00:00 Outpatient R DAVID LADD [facility] [id number] [facility] 2022-04-01 14:00:00 2022-04-01 14:00:00 Outpatient R WILBERTO [facility] [id number] [facility] 2022-04-01 14:00:00 2022-04-01 14:00:00 Outpatient R WILBERTO [facility] [id number] [facility] 2022-03-28 00:00:00 2022-03-28 00:00:00 [facility].114 350.1.13.10 4.2.7.2.686 [id number] [facility] 2022-03-27 00:00:00 2022-03-27 00:00:00 Telephone [place], Nephrology [facility] 1.840.114 350.1.13.10 4.2.7.2.686 [id number] [facility] 2022-03-26 14:30:00 2022-03-26 14:56:45 Outpatient R BROOKS BARKER OGECHUKWU [facility] [id number] [facility] 2022-03-26 14:30:00 2022-03-26 14:56:45 Office Visit Brooks Barker [facility] 1.840.114 350.1.13.10 4.2.7.2.686 [id number] [facility] 2022-03-26 14:30:00 2022-03-26 14:56:45 Outpatient R MJBROOKS BAUMANN OGLOYDAARIS [facility] [id number] [facility] 2022-03-20 00:00:00 2022-03-20 00:00:00 Transition of Care Rolo Page [facility] 1.2.840.114 350.1.13.10 4.2.7.2.686 [id number] [facility] 2022-03-20 00:00:00 2022-03-20 00:00:00 Telephone Kim Jones [facility] 1.2.840.114 350.1.13.10 4.2.7.2.686 [id number] [facility] 2022-03-17 13:52:00 2022-03-19 10:30:00 Hospital Encounter Asad Armendariz Jelani [facility] 1.2.840.114 350.1.13.10 4.2.7.2.686 [id number] [facility] 2022-03-17 13:30:00 2022-03-17 14:00:48 Outpatient R BROOKS BARKER OGECHUKWU [facility] [id number] [facility] 2022-03-17 13:30:00 2022-03-17 14:00:48 Outpatient R BROOKS BARKER OGECHUKWU [facility] [id number] [facility] 2022-03-17 13:30:00 2022-03-17 14:00:48 Office Visit Brooks [facility] 1.2.840.114 350.1.13.10 4.2.7.2.686 [id number] [facility] 2022-03-17 13:30:00 2022-03-17 14:00:48 Outpatient R BROOKS BARKER OGECHUKWU [facility] [id number] [facility] 2022-03-17 13:30:00 2022-03-17 14:00:48 Outpatient R BROOKS BARKER OGECHUKWU [facility] [id number] [facility] 2022-03-17 13:30:00 2022-03-17 14:00:48 Outpatient R BROOKS BARKER OGECHUKWU [facility] [id number] [facility] 2022-03-12 00:00:00 2022-03-12 00:00:00 Orders Only Doctor Unassigned, [place] [facility] 1.2.840.114 350.1.13.10 4.2.7.2.686 [id number] [facility] 2022-03-11 20:00:00 2022-03-11 22:30:00 Registration Rep Visit 1, [facility] Sleep Lab Bed Leanna Kleinl Edgar [facility] 1.2.840.114 350.1.13.10 4.2.7.2.686 [id number] [facility] 2022-03-11 20:00:00 2022-03-11 20:00:00 Outpatient R ATANASOV, STRAHIL ATANASOV, STRAHIL [facility] [id number] [facility] 2022-03-11 20:00:00 2022-03-11 20:00:00 Outpatient R ATANASOV, STRAHIL ATANASOV, STRAHIL [facility] [id number] [facility] 2022-03-10 14:45:00 2022-03-10 15:00:00 Laboratory Only Only, [facility] Test Rebecca Palmer [facility] 1.2.840.114 350.1.13.10 4.2.7.2.686 [id number] [facility] 2022-03-10 14:45:00 2022-03-10 14:45:00 Outpatient R REBECCA PALMER [facility] [id number] [facility] 2022-03-10 11:00:00 2022-03-10 11:00:00 Outpatient R [facility] [id number] [facility] 2022-03-10 00:00:00 2022-03-10 00:00:00 Transition of Care Page Seth 1.2.840.114 350.1.13.10 4.2.7.2.686 [id number] [facility] 2022-03-05 12:15:00 2022-03-07 13:33:00 Outpatient X BJ WEISS [facility] D[facility] [id number] [facility] 2022-03-05 12:15:00 2022-03-07 13:33:00 Emergency Janina Wharton Jelani VTMARIANNE [facility] 1.2.840.114 350.1.13.10 4.2.7.2.686 [id number] [facility] 2022-03-05 12:15:00 2022-03-07 13:33:00 Outpatient X BJ WEISS [facility] [id number] [facility] 2022-03-05 14:00:00 2022-03-05 14:00:00 Outpatient R BROOKS BARKER OGECHUKWU [facility] [id number] [facility] 2022-03-05 12:15:00 2022-03-05 12:15:00 Emergency X JANINA WHARTON [facility] ERT [id number] [facility] 2022-03-05 12:15:00 2022-03-05 12:15:00 Outpatient X BJ WEISS [facility] [id number] [facility] 2022-03-05 12:15:00 2022-03-05 12:15:00 Outpatient X BJ WEISS [facility] [id number] [facility] 2022-03-05 12:15:00 2022-03-05 12:15:00 Outpatient X BJ WEISS [facility] [id number] [facility] 2022-03-05 00:00:00 2022-03-05 00:00:00 Patient Outreach Shahnaz Ulloa [facility] 1.2.840.114 350.1.13.10 4.2.7.2.686 [id number] [facility] 2022-03-05 00:00:00 2022-03-05 00:00:00 Patient Outreach Shahnaz Ulloa [facility] 1.2.840.114 350.1.13.10 4.2.7.2.686 [id number] [facility] 2022-03-05 00:00:00 2022-03-05 00:00:00 Patient Outreach Shahnaz Ulloa [facility] 1.2.840.114 350.1.13.10 4.2.7.2.686 [id number] [facility] 2022-03-05 00:00:00 2022-03-05 00:00:00 Patient Outreach Shahnaz Ulloa [facility] 1.2.840.114 350.1.13.10 4.2.7.2.686 [id number] [facility] 2022-03-04 13:00:00 2022-03-04 13:57:47 Office Visit Kim Jones [facility] 1.2.840.114 350.1.13.10 4.2.7.2.686 [id number] [facility] 2022-03-04 13:00:00 2022-03-04 13:57:47 Outpatient R KIM JONES [facility] [id number] [facility] 2022-03-04 13:00:00 2022-03-04 13:57:47 Office Visit Kim Jones [facility] 1.2.840.114 350.1.13.10 4.2.7.2.686 [id number] [facility] 2022-03-04 13:00:00 2022-03-04 13:57:47 Outpatient R KIM JONES [facility] [id number] [facility] 2022-03-04 13:00:00 2022-03-04 13:57:47 Office Visit Kim Jones [facility] 1.2.840.114 350.1.13.10 4.2.7.2.686 [id number] [facility] 2022-03-04 13:00:00 2022-03-04 13:57:47 Outpatient R SHAR JONESBETH [facility] [id number] [facility] 2022-03-04 13:00:00 2022-03-04 13:00:00 Outpatient R KIM JONES [facility] [id number] [facility] 2022-03-02 00:00:00 2022-03-02 00:00:00 Elizabet Argueta [facility] 1.2.840.114 350.1.13.10 4.2.7.2.686 [id number] [facility] 2022-02-28 00:00:00 2022-02-28 00:00:00 Orders Only Doctor Unassigned, [place] [facility] 1.2.840.114 350.1.13.10 4.2.7.2.686 [id number] [facility] 2022-02-27 14:47:00 2022-02-27 16:52:00 Emergency X MARY REYNAGA [facility] ERT [id number] [facility] 2022-02-27 14:47:00 2022-02-27 16:52:00 Emergency Mary Reynaga [facility] 1.2840.114 350.1.13.10 4.2.7.2.686 [id number] [facility] 2022-02-27 14:47:00 2022-02-27 16:52:00 Emergency X MARY REYNAGA [facility] ERT [id number] [facility] 2022-02-27 14:47:00 2022-02-27 16:52:00 Emergency X MARY REYNAGA [facility] ERT [id number] [facility] 2022-02-27 14:47:00 2022-02-27 16:52:00 Emergency MARY MARKHAM [facility] ERT [id number] [facility] 2022-02-27 00:00:00 2022-02-27 00:00:00 Telephone David LaddHTej [facility] 1.840.114 350.1.13.10 4.2.7.2.686 [id number] [facility] 2022-02-27 00:00:00 2022-02-27 00:00:00 Telephone David LaddHTej [facility] 1..840.114 350.1.13.10 4.2.7.2.686 [id number] [facility] 2022-02-27 00:00:00 2022-02-27 00:00:00 Telephone Juan Mazariegos [facility] 1..840.114 350.1.13.10 4.2.7.2.686 [id number] [facility] 2022-02-26 09:30:00 2022-02-26 10:04:13 Outpatient R LADDANADANE [facility] [id number] [facility] 2022-02-26 09:30:00 2022-02-26 10:04:13 Office Visit David Ladd [facility] 1.840.114 350.1.13.10 4.2.7.2.686 [id number] [facility] 2022-02-26 09:30:00 2022-02-26 10:04:13 Outpatient R DAVID LADD [facility] [id number] [facility] 2022-02-26 09:30:00 2022-02-26 10:04:13 Outpatient R DAVID ALDD [facility] [id number] [facility] 2022-02-26 08:30:00 2022-02-26 08:30:00 Outpatient R DAVID LADD [facility] [id number] [facility] 2022-02-26 08:30:00 2022-02-26 08:30:00 Outpatient R LADDANADANE [facility] [id number] [facility] 2022-02-26 00:00:00 2022-02-26 00:00:00 Telephone Juan Mazariegos [facility] .840.114 350.1.13.10 4.2.7.2.686 [id number] [facility] 2022-02-25 00:00:00 2022-02-25 00:00:00 Outpatient R [facility] [id number] [facility] 2022-02-25 00:00:00 2022-02-25 00:00:00 Outpatient R [facility] [id number] [facility] 2022-02-25 00:00:00 2022-02-25 00:00:00 Orders Only Doctor Unassigned, [place] [facility] 1.2.840.114 350.1.13.10 4.2.7.2.686 [id number] [facility] 2022-02-24 17:06:00 2022-02-24 19:41:00 Emergency Pia Watst [facility] 1.2.840.114 350.1.13.10 4.2.7.2.686 [id number] [facility] 2022-02-24 16:30:00 2022-02-24 16:49:48 Outpatient R BROOKS BARKER OGECHUKDonnieU [facility] [id number] [facility] 2022-02-24 16:30:00 2022-02-24 16:49:48 Outpatient R BROOKS BARKER, OGECHUKWU [facility] ERT [id number] [facility] 2022-02-24 16:30:00 2022-02-24 16:49:48 Office Visit [facility] 1.2.840.114 350.1.13.10 4.2.7.2.686 [id number] [facility] 2022-02-24 16:30:00 2022-02-24 16:49:48 Outpatient R BROOKS BARKER, OGECHUKWU [facility] ERT [id number] [facility] 2022-02-24 16:30:00 2022-02-24 16:49:48 Outpatient R BROOKS BARKER, OGECHUKWU [facility] [id number] [facility] 2022-02-24 16:30:00 2022-02-24 16:49:48 Outpatient R HOWARD BARKERECHJOE BARKER, OGECHUKWU [facility] ERT [id number] [facility] 2022-02-20 00:00:00 2022-02-20 00:00:00 Telephone [facility] 1.2840.114 350.1.13.10 4.2.7.2.686 [id number] [facility] 2022-02-20 00:00:00 2022-02-20 00:00:00 Telephone [facility] 1.2840.114 350.1.13.10 4.2.7.2.686 [id number] [facility] 2022-02-20 00:00:00 2022-02-20 00:00:00 [facility] 1.2840.114 350.1.13.10 4.2.7.2.686 [id number] [facility] 2022-02-19 00:00:00 2022-02-19 00:00:00 Transition of Care Page Seth [facility] 1.840.114 350.1.13.10 4.2.7.2.686 [id number] [facility] 2022-02-19 00:00:00 2022-02-19 00:00:00 Telephone David Ladd [facility] 1.84.114 350.1.13.10 4.2.7.2.686 [id number] [facility] 2022-02-19 00:00:00 2022-02-19 00:00:00 Telephone Kim Jones [facility] 1.2840.114 350.1.13.10 4.2.7.2.686 [id number] [facility] 2022-02-19 00:00:00 2022-02-19 00:00:00 Orders Only Doctor Unassigned, [place] [facility] 1.840.114 350.1.13.10 4.2.7.2.686 [id number] [facility] 2022-02-19 00:00:00 2022-02-19 00:00:00 Telephone David Ladd [facility] 1..840.114 350.1.13.10 4.2.7.2.686 [id number] [facility] 2022-02-14 20:36:00 2022-02-18 13:15:00 [facility] [id number] [facility] 2022-02-14 20:36:00 2022-02-18 13:15:00 [facility] 1.840.114 350.1.13.10 4.2.7.2.686 [id number] [facility] 2022-02-14 20:36:00 2022-02-18 13:15:00 [facility] [id number] [facility] 2022-02-14 20:36:00 2022-02-18 13:15:00 [facility] [id number] [facility] 2022-02-18 00:00:00 2022-02-18 00:00:00 Telephone Jose ManuelJosefina cheungkimberly [facility] 1..840.114 350.1.13.10 4.2.7.2.686 [id number] [facility] 2022-02-17 11:00:00 2022-02-17 11:00:00 Outpatient KIM HU [facility] [id number] [facility] 2022-02-17 00:00:00 2022-02-17 00:00:00 Telephone Hallie Greenberg [facility] 1.2.840.114 350.1.13.10 4.2.7.2.686 [id number] [facility] 2022-02-11 14:00:00 2022-02-11 14:00:00 Outpatient R JONESKIM [facility] [id number] [facility] 2022-02-11 14:00:00 2022-02-11 14:00:00 Outpatient R JONESKIM [facility] [id number] [facility] 2022-02-11 14:00:00 2022-02-11 14:00:00 Outpatient R ROBERTKIM [facility] [id number] [facility] 2022-02-11 14:00:00 2022-02-11 14:00:00 Outpatient R ROBERT KIM [facility] [id number] [facility] 2022-02-11 14:00:00 2022-02-11 14:00:00 Outpatient R ROBERTKIM [facility] [id number] [facility] 2022-02-11 14:00:00 2022-02-11 14:00:00 Outpatient R ROBERT KIM [facility] [id number] [facility] 2022-02-11 14:00:00 2022-02-11 14:00:00 Outpatient R ROBERT KIM [facility] [id number] [facility] 2022-02-11 14:00:00 2022-02-11 14:00:00 Outpatient R ROBERT KIM [facility] [id number] [facility] 2022-02-11 14:00:00 2022-02-11 14:00:00 Outpatient R ROBERT KIM [facility] [id number] [facility] 2022-02-11 14:00:00 2022-02-11 14:00:00 Outpatient KIM HU [facility] [id number] [facility] 2022-02-11 14:00:00 2022-02-11 14:00:00 Outpatient KIM HU [facility] [id number] [facility] 2022-02-11 14:00:00 2022-02-11 14:00:00 [facility] [id number] [facility] 2022-02-11 14:00:00 2022-02-11 14:00:00 Outpatient KIM HU [facility] [id number] [facility] 2022-02-11 14:00:00 2022-02-11 14:00:00 Outpatient [facility] [id number] [facility] 2022-02-11 14:00:00 2022-02-11 14:00:00 Outpatient R KIM JONES [facility] [id number] [facility] 2022-02-10 00:00:00 2022-02-10 00:00:00 David Rodriguez [facility] 1.2.840.114 350.1.13.10 4.2.7.2.686 [id number] [facility] 2022-02-08 11:46:00 2022-02-08 13:44:00 Emergency MARY MARKHAM [facility] ERT [id number] [facility] 2022-02-08 11:46:00 2022-02-08 13:44:00 Emergency Mary Reynaga [facility] .840.114 350.1.13.10 4.2.7.2.686 [id number] [facility] 2022-02-08 11:46:00 2022-02-08 13:44:00 Emergency X MARY REYNAGA [facility] ERT [id number] [facility] 2022-02-06 00:00:00 2022-02-06 00:00:00 Orders Only Doctor Unassigned, [place] [facility] 1.2840.114 350.1.13.10 4.2.7.2.686 [id number] [facility] 2022-02-05 09:30:00 2022-02-05 09:56:26 Outpatient R DAVID LADD [facility] [id number] [facility] 2022-02-05 09:30:00 2022-02-05 09:56:26 Nurse Visit Visit, [facility] Nurse David LaddTej [facility] 1.284.114 350.1.13.10 4.2.7.2.686 [id number] [facility] 2022-02-05 09:30:00 2022-02-05 09:56:26 [facility] [id number] [facility] 2022-02-05 00:00:00 2022-02-05 00:00:00 Telephone David Ladd [facility] 1.2840.114 350.1.13.10 4.2.7.2.686 [id number] [facility] 2022-02-05 00:00:00 2022-02-05 00:00:00 Transition of Care Page Seth 1.2840.114 350.1.13.10 4.2.7.2.686 [id number] [facility] 2022-02-04 15:00:00 2022-02-04 15:00:00 Outpatient R [facility] [id number] [facility] 2022-02-04 15:00:00 2022-02-04 15:00:00 Outpatient R [facility] [id number] [facility] 2022-02-02 12:47:00 2022-02-03 18:00:00 Outpatient CRISS ALATORRE [facility] DIONISIO [id number] [facility] 2022-02-02 12:47:00 2022-02-03 18:00:00 Emergency Ruben MichelleCriss Chapin [facility] 1.2.840.114 350.1.13.10 4.2.7.2.686 [id number] [facility] 2022-02-02 12:47:00 2022-02-03 18:00:00 Outpatient CIRSS ALATORRE [facility] [id number] [facility] 2022-02-02 00:00:00 2022-02-02 00:00:00 [facility] [place] [facility] 1.2.840.114 350.1.13.10 4.2.7.2.686 [id number] [facility] 2022-01-28 08:30:00 2022-01-28 08:30:00 Outpatient R WILBERTO SENDDANE [facility] [id number] [facility] 2022-01-28 08:30:00 2022-01-28 08:30:00 Outpatient R WILBERTO SENDDANE [facility] [id number] [facility] 2022-01-28 08:30:00 2022-01-28 08:30:00 Outpatient R DAVID LADD [facility] [id number] [facility] 2022-01-28 08:30:00 2022-01-28 08:30:00 Outpatient R WILBERTO SENDIL [facility] [id number] [facility] 2022-01-28 08:30:00 2022-01-28 08:30:00 Outpatient R LADD, SENDIL [facility] [id number] [facility] 2022-01-28 08:30:00 2022-01-28 08:30:00 Outpatient R DAVID LADD [facility] [id number] [facility] 2022-01-28 08:30:00 2022-01-28 08:30:00 Office Visit David [facility]add [facility] 1.2840.114 350.1.13.10 4.2.7.2.686 [id number] [facility] 2022-01-28 08:30:00 2022-01-28 08:25:30 Outpatient R WILBERTO DAVID [facility] [id number] [facility] 2022-01-24 00:00:00 2022-01-24 00:00:00 Transition of Care Erica Sousa [facility] 1.2840.114 350.1.13.10 4.2.7.2.686 [id number] [facility] 2022-01-24 00:00:00 2022-01-24 00:00:00 Orders Only Doctor Unassigned, [place] [facility] 1.840.114 350.1.13.10 4.2.7.2.686 [id number] [facility] 2022-01-21 09:05:00 2022-01-23 19:12:00 Outpatient X BJ WEISS [facility] [id number] [facility] 2022-01-21 09:05:00 2022-01-23 19:12:00 Emergency WattsPia Jelani [facility] 1.840.114 350.1.13.10 4.2.7.2.686 [id number] [facility] 2022-01-21 09:05:00 2022-01-23 19:12:00 Outpatient X BJ WEISS [facility] [id number] [facility] 2022-01-21 09:05:00 2022-01-21 09:05:00 Outpatient X BJ WEISS [facility] [id number] [facility] 2022-03-19 14:51:36 2022-01-17 12:51:00 Emergency X [facility] [id number] [facility] 2022-01-23 16:14:13 2022-01-17 12:51:00 Emergency X [facility] [id number] [facility] 2022-01-17 12:50:40 2022-01-17 12:51:00 Emergency X [facility] [id number] [facility] 2022-01-16 00:00:00 2022-01-16 00:00:00 Orders Only Doctor Unassigned, [place] [facility] 1..840.114 350.1.13.10 4.2.7.2.686 [id number] [facility] 2022-01-15 09:40:00 2022-01-15 09:40:00 Outpatient R ATANASOV, STRAHIL ATANASOV, STRAHIL [facility] [id number] [facility] 2022-01-15 09:40:00 2022-01-15 09:40:00 Outpatient R ATANASOV, STRAHIL ATANASOV, STRAHIL [facility] [id number] [facility] 2022-01-15 09:40:00 2022-01-15 09:40:00 Outpatient R ATANASOV, STRAHIL ATANASOV, STRAHIL [facility] [id number] [facility] 2022-01-15 09:40:00 2022-01-15 09:40:00 Outpatient R ATANASOV, STRAHIL ATANASOV, STRAHIL [facility] [id number] [facility] 2022-01-14 00:00:00 2022-01-14 00:00:00 Telephone Cornelia Sanderson [facility] 1..840.114 350.1.13.10 4.2.7.2.686 [id number] [facility] 2022-01-09 15:40:00 2022-01-09 16:19:06 Outpatient R YVONNE JONESZABETH [facility] [id number] [facility] 2022-01-09 15:40:00 2022-01-09 16:19:06 Outpatient R JONESYVONNEKIM [facility] [id number] [facility] 2022-01-09 15:40:00 2022-01-09 16:19:06 Office Visit Kim Jones Orlin [facility] 1.2.840.114 350.1.13.10 4.2.7.2.686 [id number] [facility] 2022-01-09 15:40:00 2022-01-09 15:40:00 Outpatient R JONES KIM [facility] [id number] [facility] 2022-01-09 15:40:00 2022-01-09 15:40:00 Outpatient R JONES KIM [facility] [id number] [facility] 2022-01-06 00:00:00 2022-01-06 00:00:00 Refill Kim Jones [facility] 1.2.840.114 350.1.13.10 4.2.7.2.686 [id number] [facility] 2022-01-04 00:00:00 2022-01-04 00:00:00 Refill David Ladd [facility] 1.2.840.114 350.1.13.10 4.2.7.2.686 [id number] [facility] 2022-01-02 13:00:00 2022-01-02 14:23:02 Outpatient R KIM JONES [facility] [id number] [facility] 2022-01-02 13:00:00 2022-01-02 14:23:02 Outpatient [facility] [id number] [facility] 2022-01-02 13:00:00 2022-01-02 14:23:02 [facility] 1..840.114 350.1.13.10 4.2.7.2.686 [id number] [facility] 2022-01-02 13:00:00 2022-01-02 14:23:02 Outpatient R [facility]ES [facility] [id number] [facility] 2022-01-02 13:00:00 2022-01-02 14:23:02 Outpatient Paul [facility] [id number] [facility] 2022-01-02 13:00:00 2022-01-02 14:23:02 Outpatient Paul THOMASJONESYVONNEKIMNEOSHO [facility] [id number] [facility] 2022-01-02 13:00:00 2022-01-02 14:23:02 Outpatient Paul [facility] [id number] [facility] 2022-01-02 00:00:00 2022-01-02 00:00:00 Transition of Care Page eSth 1.2.840.114 350.1.13.10 4.2.7.2.686 [id number] [facility] 2021-12-31 07:01:00 2022-01-01 19:25:00 Outpatient BJ PLASCENCIA [facility] [id number] [facility] 2021-12-31 07:01:00 2022-01-01 19:25:00 Emergency Michelle Miranda Jelani [facility] 1.2.840.114 350.1.13.10 4.2.7.2.686 [id number] [facility] 2021-12-31 07:01:00 2022-01-01 19:25:00 Outpatient X BJ WEISS [facility] [id number] [facility] 2021-12-31 07:01:00 2022-01-01 19:25:00 Outpatient X BJ WEISS [facility] [id number] [facility] 2021-12-27 16:00:00 2021-12-27 16:38:33 Outpatient R JUAN MAZARIEGOS [facility] [id number] [facility] 2021-12-27 16:00:00 2021-12-27 16:38:33 Office Visit Juan [facility] 1.2.840.114 350.1.13.10 4.2.7.2.686 [id number] [facility] 2021-12-27 16:00:00 2021-12-27 16:38:33 Outpatient R JUAN MAZARIEGOS [facility] [id number] [facility] 2021-12-27 16:00:00 2021-12-27 16:38:33 Outpatient R JUAN MAZARIEGOS [facility] [id number] [facility] 2021-12-27 16:00:00 2021-12-27 16:38:33 Outpatient R JUAN MAZARIEGOS [facility] [id number] [facility] 2021-12-27 16:00:00 2021-12-27 16:38:33 Outpatient R JUAN MAZARIEGOS [facility] [id number] [facility] 2021-12-25 13:22:11 2021-12-25 23:59:00 Hospital Encounter Maria E Fischer [facility] 1.84.114 350.1.13.10 4.2.7.2.686 [id number] [facility] 2021-12-25 13:30:00 2021-12-25 13:45:00 Registration Rep Visit Pob, Adc Lab Main Maria E Fischer [facility] 1.840.114 350.1.13.10 4.2.7.2.686 [id number] [facility] 2021-12-25 13:30:00 2021-12-25 13:30:00 Outpatient R MARIA E FISCHER [facility] [id number] [facility] 2021-12-25 13:30:00 2021-12-25 13:30:00 Outpatient R MARIA E FISCHER [facility] [id number] [facility] 2021-12-25 13:30:00 2021-12-25 13:30:00 Outpatient R MARIA E FISCHER [facility] [id number] [facility] 2021-12-25 11:00:00 2021-12-25 12:25:01 Outpatient R MARIA E FISCHER [facility] [id number] [facility] 2021-12-25 11:00:00 2021-12-25 12:25:01 Office Visit Maria E Fischer [facility] 1.840.114 350.1.13.10 4.2.7.2.686 [id number] [facility] 2021-12-25 11:00:00 2021-12-25 12:25:01 Outpatient R MARIA E FISCHER [facility] [id number] [facility] 2021-12-25 00:00:00 2021-12-25 00:00:00 Orders Only Doctor Unassigned, [place] [facility] 1.840.114 350.1.13.10 4.2.7.2.686 [id number] [facility] 2021-12-24 16:57:00 2021-12-24 17:41:00 Emergency X NIKKI, Jairo [facility] ERT [id number] [facility] 2021-12-24 16:57:00 2021-12-24 17:41:00 Emergency Nikki, Jairo Soliman [facility] 1..840.114 350.1.13.10 4.2.7.2.686 [id number] [facility] 2021-12-24 16:57:00 2021-12-24 17:41:00 Emergency X NIKKI, Jairo [facility] ERT [id number] [facility] 2021-12-24 16:57:00 2021-12-24 17:41:00 Emergency X NIKKI, Jairo [facility] ERT [id number] [facility] 2021-12-24 16:57:00 2021-12-24 17:41:00 Emergency X NIKKI, Jairo [facility] ERT [id number] [facility] 2021-12-24 16:57:00 2021-12-24 17:41:00 Emergency X NIKKI, Jairo [facility] ERT [id number] [facility] 2021-12-24 16:57:00 2021-12-24 17:41:00 Emergency X NIKKI, Jairo [facility] ERT [id number] [facility] 2021-12-21 19:30:00 2021-12-21 22:00:00 Registration Rep Visit 1, [facility] Sleep Lab Bed Sunshine Klein [facility] 1..840.114 350.1.13.10 4.2.7.2.686 [id number] [facility] 2021-12-21 19:30:00 2021-12-21 19:30:00 Outpatient R SUNSHINE KLEIN STRAHIL [facility] [id number] [facility] 2021-12-21 19:30:00 2021-12-21 19:30:00 Outpatient R BARTOLOME, LEANNAL ATADARIUSZ, STRAHIL [facility] [id number] [facility] 2021-12-21 19:30:00 2021-12-21 19:30:00 Outpatient R STONEYOV, STRAHIL ATANASOV, STRAHIL [facility] [id number] [facility] 2021-12-21 19:30:00 2021-12-21 19:30:00 Outpatient R ATANASOV, NATALIEHIL ATANASOV, STRAUTL [facility] [id number] [facility] 2021-12-21 19:30:00 2021-12-21 19:30:00 Outpatient R SHARONGABRIELAPASCUAL, LEANNAL SHARONGABRIELAOV, STRAUTL [facility] [id number] [facility] 2021-12-21 00:00:00 2021-12-21 00:00:00 Orders Only Doctor Unassigned, [place] [facility] 1.840.114 350.1.13.10 4.2.7.2.686 [id number] [facility] 2021-12-19 08:00:00 2021-12-19 08:15:00 Laboratory Only Only, Adc Rebecca Pearson [facility] 1..840.114 350.1.13.10 4.2.7.2.686 [id number] [facility] 2021-12-19 08:00:00 2021-12-19 08:00:00 Outpatient REBECCA SAUCEDO [facility] [id number] [facility] 2021-12-19 08:00:00 2021-12-19 08:00:00 Outpatient REBECCA SAUCEDO [facility] [id number] [facility] 2021-12-19 08:00:00 2021-12-19 08:00:00 Outpatient REBECCA SAUCEDO [facility] [id number] [facility] 2021-12-19 00:00:00 2021-12-19 00:00:00 Case Management Kim Jones [facility] 1.2.840.114 350.1.13.10 4.2.7.2.686 [id number] [facility] 2021-12-19 00:00:00 2021-12-19 00:00:00 Patient Outreach Shahnaz Ulloa [facility] 1.2.840.114 350.1.13.10 4.2.7.2.686 [id number] [facility] 2021-12-19 00:00:00 2021-12-19 00:00:00 Orders Only Doctor Unassigned, [place] [facility] 1.2.840.114 350.1.13.10 4.2.7.2.686 [id number] [facility] 2021-12-16 00:00:00 2021-12-16 00:00:00 Transition of Care Page eSth 1.2.840.114 350.1.13.10 4.2.7.2.686 [id number] [facility] 2021-12-16 00:00:00 2021-12-16 00:00:00 Telephone Kim Jones [facility] 1.2.840.114 350.1.13.10 4.2.7.2.686 [id number] [facility] 2021-12-12 09:12:00 2021-12-14 15:13:00 Hospital Encounter Mary Reynaga Yaman Oville, Jelani [facility] 1.2.840.114 350.1.13.10 4.2.7.2.686 [id number] [facility] 2021-12-11 11:00:00 2021-12-11 11:47:39 [id number] 2021-12-11 11:00:00 2021-12-11 11:47:39 [facility] 1.2.840.114 350.1.13.10 4.2.7.2.686 [id number] [facility] 2021-12-11 11:00:00 2021-12-11 11:47:39 Outpatient Paul SANDERSON [facility] [id number] [facility] 2021-12-11 11:00:00 2021-12-11 11:00:00 Outpatient Paul SANDERSON [facility] [id number] [facility] 2021-12-10 10:08:00 2021-12-10 14:35:00 Emergency X SINGER PIA [facility] ERT [id number] [facility] 2021-12-10 10:08:00 2021-12-10 14:35:00 Emergency Pia Watts [facility] 1.2.840.114 350.1.13.10 4.2.7.2.686 [id number] [facility] 2021-12-10 10:08:00 2021-12-10 14:35:00 Emergency X SINGER PIA [facility] ERT [id number] [facility] 2021-12-10 10:08:00 2021-12-10 14:35:00 Emergency X SINGER PIA [facility] ERT [id number] [facility] 2021-12-10 10:08:00 2021-12-10 14:35:00 Emergency X PIA WATTS [facility] ERT [id number] [facility] 2021-12-10 10:08:00 2021-12-10 14:35:00 Emergency X PIA WATTS [facility] ERT [id number] [facility] 2021-12-10 10:08:00 2021-12-10 14:35:00 Emergency X PIA WATTS [facility] ERT [id number] [facility] 2021-12-10 10:08:00 2021-12-10 10:08:00 Emergency X PIA WATTS [facility] ERT [id number] [facility] 2021-12-10 10:08:00 2021-12-10 10:08:00 Emergency X PIA WATTS [facility] ERT [id number] [facility] 2021-12-10 00:00:00 2021-12-10 00:00:00 Telephone Cornelia Sanderson [facility] 1.2.840.114 350.1.13.10 4.2.7.2.686 [id number] [facility] 2021 15:40:00 2021 17:19:00 Outpatient R KIM JONES [facility] [id number] [facility] 2021 15:40:00 2021 17:19:00 Office Visit Kim Jones [facility] 1.2.840.114 350.1.13.10 4.2.7.2.686 [id number] [facility] 2021 15:40:00 2021 17:19:00 Outpatient R KIM JONES [facility] [id number] [facility] 2021 15:40:00 2021 17:19:00 Outpatient R KIM JONES [facility] [id number] [facility] 2021 15:40:00 2021 17:19:00 Outpatient R KIM JONES [facility] [id number] [facility] 2021 00:00:00 2021 00:00:00 Orders Only Doctor Unassigned, [place] [facility] 1.2840.114 350.1.13.10 4.2.7.2.686 [id number] [facility] 2021-12-03 00:00:00 2021-12-03 00:00:00 Telephone [facility] 1.284.114 350.1.13.10 4.2.7.2.686 [id number] [facility] 2021-12-02 00:00:00 2021-12-02 00:00:00 Transition of Care Page Seth [place] 1.84.114 350.1.13.10 4.2.7.2.686 [id number] [facility] 2021-11-29 15:25:00 2021-11-30 12:37:00 Outpatient CRISS ALATORRE [facility] [id number] [facility] 2021-11-29 15:25:00 2021-11-30 12:37:00 Emergency Michelle Miranda David [facility] 1.840.114 350.1.13.10 4.2.7.2.686 [id number] [facility] 2021-11-29 15:25:00 2021-11-30 12:37:00 Outpatient CRISS ALATORRE [facility] [id number] [facility] 2021-11-29 15:25:00 2021-11-30 12:37:00 Outpatient CRISS ALATORRE [facility] [id number] [facility] 2021-11-22 00:00:00 2021-11-22 00:00:00 Transition of Care Yvonne Fairbanks 1.2.840.114 350.1.13.10 4.2.7.2.686 [id number] [facility] 2021-11-19 16:24:00 2021-11-21 12:26:00 Outpatient X BJ WEISS [facility] [id number] [facility] 2021-11-19 16:24:00 2021-11-21 12:26:00 [facility] 1..840.114 350.1.13.10 4.2.7.2.686 [id number] [facility] 2021-11-19 16:24:00 2021-11-21 12:26:00 Outpatient X BJ WEISS [facility] [id number] [facility] 2021-11-19 16:24:00 2021-11-21 12:26:00 [facility] [id number] [facility] 2021-11-19 16:24:00 2021-11-19 16:24:00 Outpatient X BJ WEISS [facility] [id number] [facility] 2021-11-11 19:30:00 2021-11-11 19:30:00 Outpatient R SUNSHINE KLEIN STRAHIL [facility] [id number] [facility] 2021-11-08 12:00:00 2021-11-08 12:00:00 Outpatient R [facility] [id number] [facility] 2021-11-08 12:00:00 2021-11-08 12:00:00 Outpatient R [facility] [id number] [facility] 2021-11-05 13:00:00 2021-11-05 13:54:58 Outpatient R KIM JONES [facility] [id number] [facility] 2021-11-05 13:00:00 2021-11-05 13:54:58 Outpatient R KIM JONES [facility] [id number] [facility] 2021-11-05 13:00:00 2021-11-05 13:54:58 Office Visit [facility] 1..840.114 350.1.13.10 4.2.7.2.686 [id number] [facility] 2021-11-05 13:00:00 2021-11-05 13:54:58 Outpatient R KIM JONES [facility] [id number] [facility] 2021-11-05 13:00:00 2021-11-05 13:54:58 Outpatient [facility] [id number] [facility] 2021-11-05 00:00:00 2021-11-05 00:00:00 Transition of Care Page SethBlaise MARX 1..840.114 350.1.13.10 4.2.7.2.686 [id number] [facility] 2021-11-04 13:45:00 2021-11-04 13:45:00 Outpatient GATO WANG [facility] [id number] [facility] 2021-11-04 13:45:00 2021-11-04 13:45:00 Outpatient R GATO STOKES [facility] [id number] [facility] 2021-11-01 17:38:00 2021-11-04 12:55:00 Inpatient X CRISS ELYVA [facility] [id number] [facility] 2021-11-01 17:38:00 2021-11-04 12:55:00 Hospital Encounter Pia Watts David [facility] 1..840.114 350.1.13.10 4.2.7.2.686 [id number] [facility] 2021-11-01 17:38:00 2021-11-04 12:55:00 Inpatient X CRISS LEYVA [facility] [id number] [facility] 2021-11-01 17:38:00 2021-11-04 12:55:00 Inpatient X CRISS LEYVA [facility] [id number] [facility] 2021-11-01 17:38:00 2021-11-04 12:55:00 Inpatient X AUTUMNCRISS [facility] [id number] [facility] 2021-11-01 17:38:00 2021-11-04 12:55:00 Inpatient X CRISS LEYVA [facility] [id number] [facility] 2021-11-01 17:38:00 2021-11-04 12:55:00 Inpatient X CRISS LEYVA [facility] [id number] [facility] 2021-10-29 11:00:00 2021-10-29 15:29:17 Outpatient GATO WANG [facility] [id number] [facility] 2021-10-29 11:00:00 2021-10-29 15:29:17 Outpatient GATO WANG [facility] [id number] [facility] 2021-10-29 11:00:00 2021-10-29 15:29:17 Outpatient GATO WANG [facility] [id number] [facility] 2021-10-29 11:00:00 2021-10-29 15:29:17 Outpatient GATO WANG [facility] [id number] [facility] 2021-10-29 11:00:00 2021-10-29 15:29:17 Outpatient GATO WANG [facility] [id number] [facility] 2021-10-29 11:00:00 2021-10-29 15:29:17 Outpatient GATO WANG [facility] [id number] [facility] 2021-10-29 11:00:00 2021-10-29 11:00:00 Outpatient GATO WANG [facility] [id number] [facility] 2021-10-29 11:00:00 2021-10-29 11:00:00 Outpatient Paul GATO STOKES [facility] [id number] [facility] 2021-10-28 00:00:00 2021-10-28 00:00:00 Transition of Care Page Seth 1.2.840.114 350.1.13.10 4.2.7.2.686 [id number] [facility] 2021-10-24 13:43:00 2021-10-26 13:02:00 Inpatient X BJ WEISS [facility] [id number] [facility] 2021-10-24 13:43:00 2021-10-26 13:02:00 Hospital Encounter Michelle Miranda Jelani [facility] 1.2.840.114 350.1.13.10 4.2.7.2.686 [id number] [facility] 2021-10-24 13:43:00 2021-10-26 13:02:00 Inpatient X BJ WEISS [facility] [id number] [facility] 2021-10-24 13:43:00 2021-10-26 13:02:00 Inpatient X BJ WEISS [facility] [id number] [facility] 2021-10-24 13:43:00 2021-10-26 13:02:00 Inpatient X BJ WEISS [facility] [id number] [facility] 2021-10-24 13:43:00 2021-10-26 13:02:00 Inpatient X BJ WEISS [facility] [id number] [facility] 2021-10-24 13:43:00 2021-10-26 13:02:00 Inpatient X BJ WEISS [facility] [id number] [facility] 2021-10-24 13:43:00 2021-10-26 13:02:00 Inpatient X BJ WEISS [facility] [id number] [facility] 2021-10-24 13:43:00 2021-10-26 13:02:00 Inpatient X BJ WEISS [facility] [id number] [facility] 2021-10-24 14:00:00 2021-10-24 14:00:00 Outpatient R DAVID LADD [facility] [id number] [facility] 2021-10-24 00:00:00 2021-10-24 00:00:00 Telephone [facility] 1.2.840.114 350.1.13.10 4.2.7.2.686 [id number] [facility] 2021-10-22 14:30:00 2021-10-22 17:20:56 Ancillary Visit Romel Burns Craig L [facility] 1.2.840.114 350.1.13.10 4.2.7.2.686 [id number] [facility] 2021-10-22 14:30:00 2021-10-22 17:20:56 Outpatient R GATO STOKES [facility] [id number] [facility] 2021-10-21 00:00:00 2021-10-21 00:00:00 Transition of Care Page Seth 1.2.840.114 350.1.13.10 4.2.7.2.686 [id number] [facility] 2021-10-18 15:00:00 2021-10-18 15:48:32 Outpatient KIM HU [facility] [id number] [facility] 2021-10-18 15:00:00 2021-10-18 15:48:32 Outpatient R KIM JONES [facility] [id number] [facility] 2021-10-18 15:00:00 2021-10-18 15:48:32 Office Visit Kim Jones Orlin [facility] LENORE LIMA [facility] [id number] [id number] [id number] [id number] [facility] 2021-10-18 15:00:00 2021-10-18 15:48:32 Outpatient R KIM JONES [facility] [id number] [facility] 2021-10-18 15:00:00 2021-10-18 15:48:32 Outpatient R KIM JONES [facility] [id number] [facility] 2021-10-18 15:00:00 2021-10-18 15:48:32 Outpatient R KIM JONES [facility] [id number] [facility] 2021-10-18 15:00:00 2021-10-18 15:48:32 Outpatient R KIM JONES [facility] [id number] [facility] 2021-10-18 15:00:00 2021-10-18 15:48:32 Outpatient R KIM JONES [facility] DIONISIO [id number] [facility] 2021-10-18 15:00:00 2021-10-18 15:48:32 Outpatient R KIM JONES [facility] [id number] [facility] 2021-10-18 15:00:00 2021-10-18 15:48:32 Outpatient R KIM JONES [facility] [id number] [facility] 2021-10-18 15:00:00 2021-10-18 15:00:00 Outpatient R SURENDRA [facility] [id number] [facility] 2021-10-18 15:00:00 2021-10-18 15:00:00 Outpatient R KIM JONES [facility] [id number] [facility] 2021-10-18 15:00:00 2021-10-18 15:00:00 Outpatient R KIM JONES [facility] [id number] [facility] 2021-10-18 15:00:00 2021-10-18 15:00:00 Outpatient R KIM JONES [facility] [id number] [facility] 2021-10-17 14:34:00 2021-10-18 13:05:00 Hospital Encounter Debby Brown Jelani [facility] .2.840.114 350.1.13.10 4.2.7.2.686 [id number] [facility] 2021-10-16 11:00:00 2021-10-16 11:57:33 Outpatient R ATADARIUSZ, STRAHIL ATANASOV, STRAHIL [facility] [id number] [facility] 2021-10-16 11:00:00 2021-10-16 11:57:33 Outpatient R ATADARIUSZ, STRAHIL ATANASOV, STRAHIL [facility] [id number] [facility] 2021-10-16 11:00:00 2021-10-16 11:57:33 Outpatient R ATANASOV, STRAHIL ATANASOV, STRAHIL [facility] [id number] [facility] 2021-10-16 11:00:00 2021-10-16 11:20:00 Office Visit Leanna Kleinl Edgar [facility] .2.840.114 350.1.13.10 4.2.7.2.686 [id number] [facility] 2021-10-16 11:00:00 2021-10-16 11:00:00 Outpatient R BARTOLOME, STRAHIL ATANASOV, STRAHIL [facility] [id number] [facility] 2021-10-14 00:00:00 2021-10-14 00:00:00 Patient Outreach Austin Perez [id number] 350.1.13.10 4.2.7.2.686 [id number] [facility] 2021-10-10 00:00:00 2021-10-10 00:00:00 Patient Outreach Austin Perez [id number] 350.1.13.10 4.2.7.2.686 [id number] [facility] 2021-10-09 00:00:00 2021-10-09 00:00:00 Patient Outreach Artemio Shahnaz Wadny [facility] 1.2840.114 350.1.13.10 4.2.7.2.686 [id number] [facility] 2021-10-09 00:00:00 2021-10-09 00:00:00 Transition of Care Page Seth 1.2840.114 350.1.13.10 4.2.7.2.686 [id number] [facility] 2021-10-09 00:00:00 2021-10-09 00:00:00 Orders Only Doctor Unassigned, [place] [facility] 1.2840.114 350.1.13.10 4.2.7.2.686 [id number] [facility] 2021-10-06 23:39:00 2021-10-08 17:40:00 Hospital Encounter Mary Reynaga Adnan Abdullah, Yaman [facility] 1.2840.114 350.1.13.10 4.2.7.2.686 [id number] [facility] 2021-10-06 23:39:00 2021-10-08 17:40:00 Inpatient X OH ESPINOZA [facility] DIONISIO [id number] [facility] 2021-10-06 23:39:00 2021-10-08 17:40:00 Inpatient X OH ESPINOZA [facility] D[facility] [id number] [facility] 2021-10-06 23:39:00 2021-10-08 17:40:00 Inpatient X OH ESPINOZA [facility] D[facility] [id number] [facility] 2021-10-06 23:39:00 2021-10-08 17:40:00 Inpatient X OH ESPINOZA [facility] D[facility] [id number] [facility] 2021-10-06 23:39:00 2021-10-08 17:40:00 Inpatient X OH ESPINOZA [facility] D[facility] [id number] [facility] 2021-10-08 11:30:00 2021-10-08 11:30:00 Outpatient R ALICIA TELLEZ ELENITA [facility] [id number] [facility] 2021-10-08 11:30:00 2021-10-08 11:30:00 Outpatient R ALICIA TELLEZ ELENITA [facility] [id number] [facility] 2021-10-08 11:30:00 2021-10-08 11:30:00 Out[facility] [facility] [id number] [facility] 2021-10-08 11:30:00 2021-10-08 11:30:00 [facility] [id number] [facility] 2021-10-08 00:00:00 2021-10-08 00:00:00 David Rodriguez [facility] 1.2.840.114 350.1.13.10 4.2.7.2.686 [id number] [facility] 2021-10-04 00:00:00 2021-10-04 00:00:00 Transition of Care Page Seth [facility] 1.840.114 350.1.13.10 4.2.7.2.686 [id number] [facility] 2021-10-02 16:53:00 2021-10-03 16:58:00 Hospital Encounter Jairo Jordan Anand Vilaschandr a [facility] 1.840.114 350.1.13.10 4.2.7.2.686 [id number] [facility] 2021-10-02 16:53:00 2021-10-03 16:58:00 Outpatient RAFY BROWN [facility] KELY [id number] [facility] 2021-10-02 16:53:00 2021-10-03 16:58:00 Outpatient U RAFY UGARTE [facility] KELY [id number] [facility] 2021-10-02 16:53:00 2021-10-03 16:58:00 Outpatient U RAFY UGARTE [facility] KELY [id number] [facility] 2021-10-02 16:53:00 2021-10-03 16:58:00 Outpatient RAFY BROWN [facility] KELY [id number] [facility] 2021-10-02 16:53:00 2021-10-02 16:53:00 Outpatient U RAFY UGARTE [facility] KELY [id number] [facility] 2021-10-02 16:00:00 2021-10-02 16:50:02 Outpatient R BROOKS BARKER OGECHUKWU [facility] KELY [id number] [facility] 2021-10-02 16:00:00 2021-10-02 16:50:02 Office Visit Brooks Barker [facility] 1.840.114 350.1.13.10 4.2.7.2.686 [id number] [facility] 2021-10-02 16:00:00 2021-10-02 16:50:02 Outpatient R BROOKS BARKER OGLOYDADonnieVeronique [facility] [id number] [facility] 2021-10-02 16:00:00 2021-10-02 16:50:02 Outpatient R BROOKS BARKER OGLOYDAARIS [facility] [id number] [facility] 2021-10-02 16:00:00 2021-10-02 16:00:00 Outpatient R BROOKS BARKER OGLOYDAARIS [facility] [id number] [facility] 2021-10-01 00:00:00 2021-10-01 00:00:00 Transition of Care Page Seth 1..840.114 350.1.13.10 4.2.7.2.686 [id number] [facility] 2021-09-28 06:53:00 2021-09-29 16:50:00 Outpatient CRISS ALATORRE [facility] [id number] [facility] 2021-09-28 06:53:00 2021-09-29 16:50:00 Emergency Mary Reynaga David [facility] ..840.114 350.1.13.10 4.2.7.2.686 [id number] [facility] 2021-09-28 06:53:00 2021-09-29 16:50:00 Outpatient CRISS ALATORRE [facility] [id number] [facility] 2021-09-24 00:00:00 2021-09-24 00:00:00 Transition of Care Page Seth ..840.114 350.1.13.10 4.2.7.2.686 [id number] [facility] 2021-09-21 07:09:00 2021-09-22 13:50:00 Inpatient X OH ESPINOZA [facility] D[facility] [id number] [facility] 2021-09-21 07:09:00 2021-09-22 13:50:00 Hospital Encounter Michelle Miranda Oh Espinoza [facility] 1..840.114 350.1.13.10 4.2.7.2.686 [id number] [facility] 2021-09-21 07:09:00 2021-09-22 13:50:00 Inpatient X OH ESPINOZA [facility] [id number] [facility] 2021-09-21 07:09:00 2021-09-22 13:50:00 Inpatient X OH ESPINOZA [facility] [id number] [facility] 2021-09-21 07:09:00 2021-09-22 13:50:00 Inpatient X OH ESPINOZA [facility] [id number] [facility] 2021-09-21 07:09:00 2021-09-22 13:50:00 Inpatient X OH ESPINOZA [facility] [id number] [facility] 2021-09-21 07:09:00 2021-09-22 13:50:00 Inpatient X OH ESPINOZA [facility] [id number] [facility] 2021-09-21 07:09:00 2021-09-22 13:50:00 Inpatient X OH ESPINOZA [facility] [id number] [facility] 2021-09-21 07:09:00 2021-09-22 13:50:00 Inpatient X OH ESPINOZA [facility] [id number] [facility] 2021-09-20 06:50:00 2021-09-20 15:00:00 Hospital Encounter Cate Lau [facility] ..840.114 350.1.13.10 4.2.7.2.686 [id number] [facility] 2021-09-20 06:50:00 2021-09-20 15:00:00 Outpatient R JUDI THERESAESVIN [facility] [id number] [facility] 2021-09-20 06:50:00 2021-09-20 15:00:00 Outpatient R JUDI THERESAESVIN [facility] [id number] [facility] 2021-09-20 06:39:38 2021-09-20 06:49:00 Outpatient R UNKNOWN, ATTENDING [facility] [id number] [facility] 2021-09-20 06:39:38 2021-09-20 06:49:00 Hospital Encounter Unknown, Attending [facility] 1.840.114 350.1.13.10 4.2.7.2.686 [id number] [facility] 2021-09-20 06:39:38 2021-09-20 06:49:00 Outpatient R UNKNOWN, ATTENDING [facility] [id number] [facility] 2021-09-20 00:00:00 2021-09-20 00:00:00 Telephone Juan Mazariegos [facility] 1.84.114 350.1.13.10 4.2.7.2.686 [id number] [facility] 2021-09-20 00:00:00 2021-09-20 00:00:00 Telephone Kim Jones [facility] 1.840.114 350.1.13.10 4.2.7.2.686 [id number] [facility] 2021-09-20 00:00:00 2021-09-20 00:00:00 Telephone Juan Mazariegos [facility] OFF[facility] 1.840.114 350.1.13.10 4.2.7.2.686 [id number] [facility] 2021-09-19 00:00:00 2021-09-19 00:00:00 Telephone Cornelia Sanderson [facility] 1..840.114 350.1.13.10 4.2.7.2.686 [id number] [facility] 2021-09-17 11:20:00 2021-09-17 11:20:00 Outpatient R [facility] [id number] [facility] 2021-09-17 11:20:00 2021-09-17 11:20:[address] [facility] [id number] [facility] 2021-09-17 11:20:00 2021-09-17 11:20:[address] [facility] [id number] [facility] 2021-09-17 11:20:00 2021-09-17 11:20:[address] [facility] [id number] [facility] 2021-09-17 11:20:00 2021-09-17 11:20:00 Outpatient R [facility] [id number] [facility] 2021-09-16 11:54:00 2021-09-16 16:20:00 Emergency Mary Reynaga [facility] ..840.114 350.1.13.10 4.2.7.2.686 [id number] [facility] 2021-09-16 11:30:00 2021-09-16 13:55:07 Outpatient R BROOKS BARKER OGECHUKWU [facility] ERT [id number] [facility] 2021-09-16 11:30:00 2021-09-16 13:55:07 Office Visit Brooks Barker [facility] 1.840.114 350.1.13.10 4.2.7.2.686 [id number] [facility] 2021-09-16 11:30:00 2021-09-16 13:55:07 Outpatient R BROOKS BARKER OGECHUKWU [facility] ERT [id number] [facility] 2021-09-16 11:30:00 2021-09-16 11:30:00 Outpatient R BROOKS BARKER BROOKS [facility] [id number] [facility] 2021-09-13 00:00:00 2021-09-13 00:00:00 Telephone Gino Rico [facility] 1.84.114 350.1.13.10 4.2.7.2.686 [id number] [facility] 2021-09-09 11:03:00 2021-09-09 17:12:00 Emergency X Jairo JORDAN [facility] ERT [id number] [facility] 2021-09-09 11:03:00 2021-09-09 17:12:00 Emergency NikkiJairo Janny [facility] 1.114 350.1.13.10 4.2.7.2.686 [id number] [facility] 2021-09-09 11:03:00 2021-09-09 17:12:00 Emergency X Jairo JORDAN [facility] ERT [id number] [facility] 2021-09-09 11:03:00 2021-09-09 17:12:00 Emergency X Jairo JORDAN [facility] ERT [id number] [facility] 2021-09-09 00:00:00 2021-09-09 00:00:00 Telephone Juan [facility]azariegos [facility] 1..114 350.1.13.10 4.2.7.2.686 [id number] [facility] 2021-09-07 09:04:00 2021-09-07 13:57:00 Emergency X JUHI MARY [facility] ERT [id number] [facility] 2021-09-07 09:04:00 2021-09-07 13:57:00 Emergency Mary Reynaga Davide [facility] 1.840.114 350.1.13.10 4.2.7.2.686 [id number] [facility] 2021-09-07 09:04:00 2021-09-07 13:57:00 Emergency X JUHI MARY [facility] ERT [id number] [facility] 2021-09-07 00:00:00 2021-09-07 00:00:00 Nurse Triage Macy Degroot [facility] 1.0.114 350.1.13.10 4.2.7.2.686 [id number] [facility] 2021-09-06 00:00:00 2021-09-06 00:00:00 Telephone Gino Rico [facility] 1.20.114 350.1.13.10 4.2.7.2.686 [id number] [facility] 2021-09-06 00:00:00 2021-09-06 00:00:00 Telephone Kim Jones [facility] YOUSIF?N[facility]IS [facility] 1.840.114 350.1.13.10 4.2.7.2.686 [id number] [facility] 2021-09-06 00:00:00 2021-09-06 00:00:00 Orders Only Doctor Unassigned, [place] [facility] 1.840.114 350.1.13.10 4.2.7.2.686 [id number] [facility] 2021-09-05 13:00:00 2021-09-05 13:58:09 Outpatient R YVONNE JONESZABETH [facility] [id number] [facility] 2021-09-05 13:00:00 2021-09-05 13:58:09 Outpatient R KIM JONES [facility] [id number] [facility] 2021-09-05 13:00:00 2021-09-05 13:58:09 Office Visit Kim Jones [facility] 1..840.114 350.1.13.10 4.2.7.2.686 [id number] [facility] 2021-09-05 13:00:00 2021-09-05 13:58:09 Outpatient R JONESYVONNEKIM [facility] [id number] [facility] 2021-09-05 13:00:00 2021-09-05 13:58:09 Outpatient R KIM JONES [facility] [id number] [facility] 2021-09-05 13:00:00 2021-09-05 13:58:09 Outpatient R KIM JONES [facility] [id number] [facility] 2021-09-05 13:00:00 2021-09-05 13:00:00 Outpatient R JONESKIM [facility] [id number] [facility] 2021-09-04 00:00:00 2021-09-04 00:00:00 Transition of Care Page Seth 1..840.114 350.1.13.10 4.2.7.2.686 [id number] [facility] 2021-09-03 00:00:00 2021-09-03 00:00:00 Transition of Care Page Seth 1..840.114 350.1.13.10 4.2.7.2.686 [id number] [facility] 2021-08-28 17:20:00 2021-09-02 13:00:00 Hospital Encounter Michelle Mirandapierce, Thelma Wright [facility] 1.2.840.114 350.1.13.10 4.2.7.2.686 [id number] [facility] 2021-08-28 17:20:00 2021-09-02 13:00:00 Inpatient X KALEN SOTO [facility] DIONISIO [id number] [facility] 2021-08-28 17:20:00 2021-09-02 13:00:00 Inpatient X KALEN SOTO [facility] D[facility] [id number] [facility] 2021-08-31 00:00:00 2021-08-31 00:00:00 Telephone [facility] 1.2.840.114 350.1.13.10 4.2.7.2.686 [id number] [facility] 2021-08-31 00:00:00 2021-08-31 00:00:00 Telephone [facility] 1.2.840.114 350.1.13.10 4.2.7.2.686 [id number] [facility] 2021-08-30 14:30:00 2021-08-30 14:30:00 Outpatient JUAN HARRISON [facility] [id number] [facility] 2021-08-28 16:30:00 2021-08-28 17:14:19 Outpatient R BROOKS BARKER OGECHUKWU [facility] [id number] [facility] 2021-08-28 16:30:00 2021-08-28 17:14:19 Outpatient R BROOKS BAREKR OGECHUKWU [facility] ERT [id number] [facility] 2021-08-28 16:30:00 2021-08-28 17:14:19 Office Visit Mj Howarddeisyjoe [facility] LENORE LIMA [facility] 1.2.840.114 350.1.13.10 4.2.7.2.686 [id number] [facility] 2021-08-28 16:30:00 2021-08-28 17:14:19 Outpatient R MJ SHAJOE BARKER, OGLOYDADonnieU [facility] [id number] [facility] 2021-08-28 16:30:00 2021-08-28 17:14:19 Outpatient R HOWARD BARKERDEISYJOE BARKER, [place] [facility] D[facility] [id number] [facility] 2021-08-28 16:30:00 2021-08-28 17:14:19 Outpatient R MJ SHAJOE BARKER, [place] [facility] [id number] [facility] 2021-08-28 16:30:00 2021-08-28 17:14:19 Outpatient R HOWARD BARKERDEISYJOE BARKER, JOIEDonnieU [facility] [id number] [facility] 2021-08-28 16:30:00 2021-08-28 17:14:19 Outpatient R HOWARD BARKERDEISYJOE BARKER, OGLOYDADonnieU [facility] [id number] [facility] 2021-08-28 16:30:00 2021-08-28 17:14:19 Outpatient R HOWARD BARKERDEISYJOE BARKER, OGLOYDAWU [facility] [id number] [facility] 2021-08-28 16:30:00 2021-08-28 17:14:19 Outpatient R HOWARD BARKERDEISYJOE BARKER, OGLOYDAWU [facility] [id number] [facility] 2021-08-28 16:30:00 2021-08-28 17:14:19 Outpatient R BROOKS BARKER OGECHUKWU [facility] [id number] [facility] 2021-08-28 00:00:00 2021-08-28 00:00:00 Telephone Kim Jones [facility] 1.2.840.114 350.1.13.10 4.2.7.2.686 [id number] [facility] 2021-08-28 00:00:00 2021-08-28 00:00:00 Patient Outreach Shahnaz Ulloa [facility] 1.2.840.114 350.1.13.10 4.2.7.2.686 [id number] [facility] 2021-08-27 00:00:00 2021-08-27 00:00:00 Transition of Care Page Seth 1.2.840.114 350.1.13.10 4.2.7.2.686 [id number] [facility] 2021-08-27 00:00:00 2021-08-27 00:00:00 Orders Only Doctor Unassigned, [place] [facility] 1.840.114 350.1.13.10 4.2.7.2.686 [id number] [facility] 2021-08-22 22:10:00 2021-08-26 10:50:00 Inpatient X OH ESPINOZA [facility] DION[facility]IO [id number] [facility] 2021-08-22 22:10:00 2021-08-26 10:50:00 Inpatient X OH ESPINOZA [facility] [id number] [facility] 2021-08-22 22:10:00 2021-08-26 10:50:00 Inpatient X OH ESPINOZA [facility] [id number] [facility] 2021-08-22 22:10:00 2021-08-26 10:50:00 Inpatient X OH ESPINOZA [facility] [id number] [facility] 2021-08-22 22:10:00 2021-08-26 10:50:00 Inpatient X HO ESPINOZA [facility] [id number] [facility] 2021-08-22 22:10:00 2021-08-26 10:50:00 Inpatient X OH ESPINOZA [facility] [id number] [facility] 2021-08-22 22:10:00 2021-08-26 10:50:00 Hospital Encounter Ursula, Taz Waldron, Oh Parker [facility] 1..840.114 350.1.13.10 4.2.7.2.686 [id number] [facility] 2021-08-26 00:00:00 2021-08-26 00:00:00 Outpatient FERNANDA DOWNING [facility] [id number] [facility] 2021-08-26 00:00:00 2021-08-26 00:00:00 Telephone Juan [facility]azariegos [facility] 1..840.114 350.1.13.10 4.2.7.2.686 [id number] [facility] 2021-08-23 08:50:00 2021-08-23 08:50:00 Outpatient MOHSEN LEOS [facility] [id number] [facility] 2021-08-23 08:50:00 2021-08-23 08:50:00 [id number] 2021-08-23 08:50:00 2021-08-23 08:50:00 Outpatient MOHSEN LEOS [facility] [id number] [facility] 2021-08-23 08:50:00 2021-08-23 08:50:00 Outpatient MOHSEN LEOS [facility] [id number] [facility] 2021-08-23 08:50:00 2021-08-23 08:50:00 [facility] [id number] [facility] 2021-08-23 08:50:00 2021-08-23 08:50:00 [facility] [id number] [facility] 2021-08-23 08:50:00 2021-08-23 08:50:00 [facility] [id number] [facility] 2021-08-23 08:50:00 2021-08-23 08:50:00 [facility] [id number] [facility] 2021-08-20 00:00:00 2021-08-20 00:00:00 Transition of Care Page Seth 1.2.840.114 350.1.13.10 4.2.7.2.686 [id number] [facility] 2021-08-13 18:42:00 2021-08-16 11:20:00 Inpatient X BJ WEISS [facility] [id number] [facility] 2021-08-13 18:42:00 2021-08-16 11:20:00 Inpatient X BJ WEISS [facility] [id number] [facility] 2021-08-13 18:42:00 2021-08-16 11:20:00 Inpatient X BJ WEISS [facility] [id number] [facility] 2021-08-13 18:42:00 2021-08-16 11:20:00 Inpatient X BJ WEISS [facility] [id number] [facility] 2021-08-13 18:42:00 2021-08-16 11:20:00 Hospital Encounter Aurora, Henrique Oh Martinez Bj [facility] 1..840.114 350.1.13.10 4.2.7.2.686 [id number] [facility] 2021-08-14 14:45:00 2021-08-14 14:45:00 Outpatient GATO WANG [facility] [id number] [facility] 2021-08-14 14:45:00 2021-08-14 14:45:00 Outpatient GATO WANG [facility] [id number] [facility] 2021-08-14 14:45:00 2021-08-14 14:45:00 Outpatient GATO WANG [facility] [id number] [facility] 2021-08-14 14:45:00 2021-08-14 14:45:00 Outpatient GATO WANG [facility] [id number] [facility] 2021-08-14 14:45:00 2021-08-14 14:45:00 Outpatient GATO WANG [facility] [id number] [facility] 2021-08-14 14:45:00 2021-08-14 14:45:00 Outpatient GATO WANG [facility] [id number] [facility] 2021-08-14 14:45:00 2021-08-14 14:45:00 Outpatient GATO WANG [facility] [id number] [facility] 2021-08-14 14:45:00 2021-08-14 14:45:00 Outpatient GATO WANG [facility] [id number] [facility] 2021-08-14 00:00:00 2021-08-14 00:00:00 Telephone Juan [facility] 1..840.114 350.1.13.10 [id number] [id number] [facility] 2021-08-12 15:00:00 2021-08-12 15:56:28 Outpatient R BROOKS BARKER, OGLOYDAWU [facility] [id number] [facility] 2021-08-12 15:00:00 2021-08-12 15:56:28 Outpatient R MJ, BROOKS BARKER, OGLOYDAWU [facility] [id number] [facility] 2021-08-12 15:00:00 2021-08-12 15:56:28 Outpatient R BROOKS BARKER, OGLOYDAWU [facility] [id number] [facility] 2021-08-12 15:00:00 2021-08-12 15:56:28 Outpatient R MJ, BROOKS BARKER, OGLOYDAWU [facility] [id number] [facility] 2021-08-12 15:00:00 2021-08-12 15:56:28 Outpatient R MJ, BROOKS BARKER, OGSIMINU [facility] [id number] [facility] 2021-08-12 15:00:00 2021-08-12 15:56:28 Outpatient R MJ, MINERVAU MJ, OGECHUKWU [facility] [id number] [facility] 2021-08-12 15:00:00 2021-08-12 15:56:28 Outpatient R BROOKS BARKER, OGECHWU [facility] [id number] [facility] 2021-08-12 15:00:00 2021-08-12 15:56:28 Office Visit MjHowardloydaaris [facility] 1.2.840.114 350.1.13.10 [id number] [id number] [facility] 2021-08-09 00:00:00 2021-08-09 00:00:00 Antoniotrini Kim Jones [facility] 1..840.114 350.1.13.10 4.2.7.2.686 [id number] [facility] 2021-08-07 14:30:00 2021-08-07 14:30:00 Outpatient R GATO STOKES [facility] [id number] [facility] 2021-08-07 00:00:00 2021-08-07 00:00:00 Transition of Care Page Seth SILVIA YEN 1..840.114 350.1.13.10 4.2.7.2.686 [id number] [facility] 2021-08-04 16:37:00 2021-08-06 15:45:00 Inpatient X CRISS LEYVA [facility] [id number] [facility] 2021-08-04 16:37:00 2021-08-06 15:45:00 Inpatient X CRISS LEYVA [facility] [id number] [facility] 2021-08-04 16:37:00 2021-08-06 15:45:00 Inpatient X CRISS LEYVA [facility] [id number] [facility] 2021-08-04 16:37:00 2021-08-06 15:45:00 Hospital Encounter Destiny Gomez David [facility] 1..840.114 350.1.13.10 4.2.7.2.686 [id number] [facility] 2021-08-04 16:37:00 2021-08-06 15:45:00 Inpatient X CRISS LEYVA [facility] [id number] [facility] 2021-08-04 16:37:00 2021-08-06 15:45:00 Inpatient X CRISS LEYVA [facility] [id number] [facility] 2021-08-04 16:37:00 2021-08-04 16:37:00 Inpatient CRISS ALATORRE [facility] [id number] [facility] 2021-08-02 09:50:00 2021-08-02 09:50:00 Outpatient MOHSEN LEOS [facility] [id number] [facility] 2021-08-02 09:50:00 2021-08-02 09:50:00 Imm/Inj Visit Nurse, Scotty Constantino Immunizatio Mohsen Down[facility] 1.2.840.114 350.1.13.10 4.2.7.2.686 [id number] [facility] 2021-08-02 09:50:00 2021-08-02 09:45:35 Outpatient MOHSEN LEOS [facility] [id number] [facility] 2021-08-02 09:50:00 2021-08-02 09:45:35 Outpatient MOHSEN LEOS [facility] [id number] [facility] 2021-08-02 09:50:00 2021-08-02 09:45:35 Outpatient MOHSEN LEOS [facility] [id number] [facility] 2021-08-02 09:50:00 2021-08-02 09:45:35 Outpatient MOHSEN LEOS [facility] [id number] [facility] 2021-08-02 09:50:00 2021-08-02 09:45:35 Outpatient MOHSEN LEOS [facility] [id number] [facility] 2021-08-02 09:50:00 2021-08-02 09:45:35 Outpatient MOHSEN LEOS [facility] [id number] [facility] 2021-08-02 09:50:00 2021-08-02 09:45:35 Outpatient MOHSEN LEOS [facility] [id number] [facility] 2021-08-02 09:50:00 2021-08-02 09:45:35 Outpatient MOHSEN LEOS [facility] [id number] [facility] 2021-08-01 00:00:00 2021-08-01 00:00:00 Telephone JonesKim Orlin [facility] 1..840.114 350.1.13.10 4.2.7.2.686 [id number] [facility] 2021-07-31 15:00:00 2021-07-31 15:00:00 Outpatient GATO WANG [facility] [id number] [facility] 2021-07-31 15:00:00 2021-07-31 15:00:00 Outpatient GATO WANG [facility] [id number] [facility] 2021-07-30 07:42:00 2021-07-30 08:48:00 Emergency X PIA WATTS [facility] ERT [id number] [facility] 2021-07-30 07:42:00 2021-07-30 08:48:00 Emergency PIA GRANADO [facility] ERT [id number] [facility] 2021-07-30 07:42:00 2021-07-30 08:48:00 Emergency PIA GRANADO [facility] ERT [id number] [facility] 2021-07-30 07:42:00 2021-07-30 08:48:00 Emergency X PIA WATTS [facility] ERT [id number] [facility] 2021-07-30 07:42:00 2021-07-30 08:48:00 Emergency X PIA WATTS [facility] ERT [id number] [facility] 2021-07-30 07:42:00 2021-07-30 08:48:00 Emergency Pia Watts [facility] ..840.114 350.1.13.10 4.2.7.2.686 [id number] [facility] 2021-07-30 07:42:00 2021-07-30 08:48:00 Emergency X PIA WATTS [facility] ERT [id number] [facility] 2021-07-29 20:51:00 2021-07-29 23:32:00 Emergency X DEBBY BROWN [facility] ERT [id number] [facility] 2021-07-29 20:51:00 2021-07-29 23:32:00 Emergency X DEBBY BROWN [facility] ERT [id number] [facility] 2021-07-29 20:51:00 2021-07-29 23:32:00 Emergency Debby Brown [facility] 1.2.840.114 350.1.13.10 4.2.7.2.686 [id number] [facility] 2021-07-29 20:51:00 2021-07-29 23:32:00 Emergency X DEBBY BROWN [facility] ERT [id number] [facility] 2021-07-29 00:00:00 2021-07-29 00:00:00 Nurse Triage Adilene Dumas [facility] 1.2.840.114 350.1.13.10 4.2.7.2.686 [id number] [facility] 2021-07-28 13:37:00 2021-07-28 17:00:00 Emergency X DEBBY BROWN [facility] ERT [id number] [facility] 2021-07-28 13:37:00 2021-07-28 17:00:00 Emergency X DEBBY BROWN [facility] ERT [id number] [facility] 2021-07-28 13:37:00 2021-07-28 17:00:00 Emergency Debby Brown [facility] 1.2.840.114 350.1.13.10 4.2.7.2.686 [id number] [facility] 2021-07-28 13:37:00 2021-07-28 17:00:00 Emergency X BROWN, DEBBY [facility] ERT [id number] [facility] 2021-07-27 00:00:00 2021-07-27 00:00:00 Nurse Triage Fermin Doris [facility] 1.2.840.114 350.1.13.10 4.2.7.2.686 [id number] [facility] 2021-07-25 00:00:00 2021-07-25 00:00:00 Transition of Care Seth Page NOMuriel S[facility] 1.2.840.114 350.1.13.10 4.2.7.2.686 [id number] [facility] 2021-07-25 00:00:00 2021-07-25 00:00:00 Telephone Kim Jones [facility] 1.2.840.114 350.1.13.10 4.2.7.2.686 [id number] [facility] 2021-07-24 16:12:00 2021-07-24 16:59:00 Emergency X PIA WATTS [facility] ERT [id number] [facility] 2021-07-24 16:12:00 2021-07-24 16:59:00 Emergency X PIA WATTS [facility] ERT [id number] [facility] 2021-07-24 16:12:00 2021-07-24 16:59:00 Emergency X PIA WATTS [facility] ERT [id number] [facility] 2021-07-24 16:12:00 2021-07-24 16:59:00 Emergency X PIA WATTS [facility] ERT [id number] [facility] 2021-07-24 16:12:00 2021-07-24 16:59:00 Emergency X PIA WATTS [facility] ERT [id number] [facility] 2021-07-24 16:12:00 2021-07-24 16:59:00 Emergency X PIA WATTS [facility] ERT [id number] [facility] 2021-07-24 16:12:00 2021-07-24 16:59:00 Emergency X PIA WATTS [facility] ERT [id number] [facility] 2021-07-24 16:12:00 2021-07-24 16:59:00 Emergency Pia Watts [facility] 1..840.114 350.1.13.10 4.2.7.2.686 [id number] [facility] 2021-07-22 11:38:00 2021-07-24 13:01:00 Outpatient X BJ WEISS [facility] [id number] [facility] 2021-07-22 11:38:00 2021-07-24 13:01:00 Outpatient X BJ WEISS [facility] [id number] [facility] 2021-07-22 11:38:00 2021-07-24 13:01:00 Emergency Karine Loja [facility] 1.840.114 350.1.13.10 4.2.7.2.686 [id number] [facility] 2021-07-22 11:38:00 2021-07-24 13:01:00 Outpatient X BJ WEISS [facility] [id number] [facility] 2021-07-22 11:38:00 2021-07-22 11:38:00 Emergency X KARINE LOJA [facility] ERT [id number] [facility] 2021-07-22 00:00:00 2021-07-22 00:00:00 Telephone [facility] 1..840.114 350.1.13.10 4.2.7.2.686 [id number] [facility] 2021-07-19 14:30:00 2021-07-19 14:31:55 Outpatient R CAMILLEASHOKALISIA FRANCESCAJUAN WHALEY [facility] [id number] [facility] 2021-07-19 14:30:00 2021-07-19 14:31:55 Outpatient R KOFFI MAKIJUAN [facility] [id number] [facility] 2021-07-19 14:30:00 2021-07-19 14:31:55 Outpatient R KOFFI MAKIJUAN [facility] [id number] [facility] 2021-07-19 14:30:00 2021-07-19 14:31:55 Outpatient R KOFFI MAKIJUAN [facility] [id number] [facility] 2021-07-19 14:30:00 2021-07-19 14:31:55 Outpatient R DELYe FRANCESCAJUAN [facility] [id number] [facility] 2021-07-19 14:30:00 2021-07-19 14:31:55 Outpatient R KOFFI MAKIJUAN [facility] [id number] [facility] 2021-07-19 14:30:00 2021-07-19 14:31:55 Outpatient R KOFFI MAKIJUAN [facility] [id number] [facility] 2021-07-19 14:30:00 2021-07-19 14:31:55 Outpatient R KOFFI MAKIJUAN [facility] [id number] [facility] 2021-07-19 14:30:00 2021-07-19 14:31:55 Outpatient R KOFFI MAKIJUAN [facility] [id number] [facility] 2021-07-19 14:30:00 2021-07-19 14:31:55 Outpatient R KOFFI MAKIJUAN [facility] [id number] [facility] 2021-07-19 14:30:00 2021-07-19 14:31:55 Office Visit [facility] 1.114 350.1.13.10 4.2.7.2.686 [id number] [facility] 2021-07-19 14:30:00 2021-07-19 14:31:55 Outpatient R JUAN MAZARIEGOS [facility] [id number] [facility] 2021-07-19 14:30:00 2021-07-19 14:31:55 Outpatient R JUAN MAZARIEGOS [facility] [id number] [facility] 2021-07-19 00:00:00 2021-07-19 00:00:00 Telephone Juan Mazariegos [facility] 1..114 350.1.13.10 4.2.7.2.686 [id number] [facility] 2021-07-19 00:00:00 2021-07-19 00:00:00 Telephone Juan Mazariegos [facility] 1.114 350.1.13.10 4.2.7.2.686 [id number] [facility] 2021-07-17 22:49:00 2021-07-18 00:38:00 Emergency X LUIS ANGEL JIMENEZ [facility] ERT [id number] [facility] 2021-07-17 22:49:00 2021-07-18 00:38:00 Emergency X LUIS ANGEL JIMENEZ [facility] ERT [id number] [facility] 2021-07-17 22:49:00 2021-07-18 00:38:00 Emergency Luis Angel Jimenez R [facility] 1..114 350.1.13.10 4.2.7.2.686 [id number] [facility] 2021-07-17 22:49:00 2021-07-18 00:38:00 Emergency X LUIS ANGEL JIMENEZ [facility] ERT [id number] [facility] 2021-07-17 00:00:00 2021-07-17 00:00:00 Telephone Juan Mazariegos [facility] 1.840.114 350.1.13.10 4.2.7.2.686 [id number] [facility] 2021-07-17 00:00:00 2021-07-17 00:00:00 Telephone [facility] 1.2.840.114 350.1.13.10 4.2.7.2.686 [id number] [facility] 2021-07-17 00:00:00 2021-07-17 00:00:00 Transition of Care Yvonne Fairbanks [facility] 1..840.114 350.1.13.10 4.2.7.2.686 [id number] [facility] 2021-07-14 18:17:00 2021-07-16 10:24:00 Outpatient X BJ WEISS [facility] [id number] [facility] 2021-07-14 18:17:00 2021-07-16 10:24:00 Outpatient X BJ WEISS [facility] [id number] [facility] 2021-07-14 18:17:00 2021-07-16 10:24:00 Outpatient X BJ WEISS [facility] [id number] [facility] 2021-07-14 18:17:00 2021-07-16 10:24:00 Outpatient X BJ WEISS [facility] [id number] [facility] 2021-07-14 18:17:00 2021-07-16 10:24:00 Outpatient X BJ WEISS [facility] [id number] [facility] 2021-07-14 18:17:00 2021-07-16 10:24:00 Outpatient X BJ WEISS [facility] [id number] [facility] 2021-07-14 18:17:00 2021-07-16 10:24:00 Outpatient X BJ WEISS [facility] [id number] [facility] 2021-07-14 18:17:00 2021-07-16 10:24:00 Outpatient X BJ WEISS [facility] [id number] [facility] 2021-07-14 18:17:00 2021-07-16 10:24:00 Outpatient X BJ WEISS [facility] [id number] [facility] 2021-07-14 18:17:00 2021-07-16 10:24:00 Outpatient X BJ WEISS [facility] [id number] [facility] 2021-07-14 18:17:00 2021-07-16 10:24:00 Hospital Encounter Destiny Gomez Bjgaby [facility] 1.2.840.114 350.1.13.10 4.2.7.2.686 [id number] [facility] 2021-07-14 18:17:00 2021-07-16 10:24:00 Outpatient X BJ WEISS [facility] [id number] [facility] 2021-07-14 18:17:00 2021-07-16 10:24:00 Outpatient X BJ WEISS [facility] [id number] [facility] 2021-07-14 18:17:00 2021-07-14 18:17:00 Outpatient X BJ WEISS [facility] [id number] [facility] 2021-07-09 14:00:00 2021-07-09 14:00:00 Outpatient JUAN HARRISON [facility] [id number] [facility] 2021-07-09 14:00:00 2021-07-09 14:00:00 Outpatient JUAN HARRISON [facility] [id number] [facility] 2021-07-09 14:00:00 2021-07-09 14:00:00 Outpatient JUAN HARRISON [facility] [id number] [facility] 2021-07-09 14:00:00 2021-07-09 14:00:00 Outpatient Paul RAIN FRANCESCAJUAN WHALEY [facility] [id number] [facility] 2021-07-09 14:00:00 2021-07-09 14:00:00 Outpatient JUAN HARRISON [facility] [id number] [facility] 2021-07-09 14:00:00 2021-07-09 14:00:00 Outpatient JUAN HARRISON [facility] [id number] [facility] 2021-07-09 14:00:00 2021-07-09 14:00:00 Outpatient JUAN HARRISON [facility] [id number] [facility] 2021-07-09 14:00:00 2021-07-09 14:00:00 Outpatient Paul LAWANDAEVELIO FRANCESCA, JOSE [facility] [id number] [facility] 2021-07-09 00:00:00 2021-07-09 00:00:00 Telephone Kim Jones [facility] LENORE LIMA [facility] 1.2.840.114 350.1.13.10 4.2.7.2.686 [id number] [facility] 2021-07-09 00:00:00 2021-07-09 00:00:00 Telephone Kim Jones [facility] 1.2.840.114 350.1.13.10 4.2.7.2.686 [id number] [facility] 2021-07-08 10:08:00 2021-07-08 14:13:00 Emergency X MARY REYNAGA [facility] ERT [id number] [facility] 2021-07-08 10:08:00 2021-07-08 14:13:00 Emergency X MARY REYNAGA [facility] ERT [id number] [facility] 2021-07-08 10:08:00 2021-07-08 14:13:00 Emergency Mary Reynaga [facility] 1..840.114 350.1.13.10 4.2.7.2.686 [id number] [facility] 2021-07-08 10:08:00 2021-07-08 14:13:00 Emergency X MARY REYNAGA [facility] ERT [id number] [facility] 2021-07-08 10:08:00 2021-07-08 14:13:00 Emergency X MARY REYNAGA [facility] ERT [id number] [facility] 2021-07-08 10:08:00 2021-07-08 14:13:00 Emergency X MARY REYNAGA [facility] ERT [id number] [facility] 2021-07-08 10:08:00 2021-07-08 10:08:00 Emergency X MARY REYNAGA [facility] ERT [id number] [facility] 2021-07-08 00:00:00 2021-07-08 00:00:00 Telephone Kim Jones [facility] 1.2.840.114 350.1.13.10 4.2.7.2.686 [id number] [facility] 2021-07-04 00:00:00 2021-07-04 00:00:00 Transition of Care Page Seth [facility] 1.2.840.114 350.1.13.10 4.2.7.2.686 [id number] [facility] 2021-07-04 00:00:00 2021-07-04 00:00:00 Orders Only Doctor Unassigned, [place] [facility] 1.2.840.114 350.1.13.10 4.2.7.2.686 [id number] [facility] 2021-07-01 16:45:00 2021-07-03 13:06:00 Inpatient X CRISS LEYVA [facility] [id number] [facility] 2021-07-01 16:45:00 2021-07-03 13:06:00 Hospital Encounter Karine Loja David [facility] 1.2840.114 350.1.13.10 4.2.7.2.686 [id number] [facility] 2021-07-03 00:00:00 2021-07-03 00:00:00 Telephone [facility] 1.2.840.114 350.1.13.10 4.2.7.2.686 [id number] [facility] 2021-07-03 00:00:00 2021-07-03 00:00:00 Telephone Kim [facility] 1.2840.114 350.1.13.10 4.2.7.2.686 [id number] [facility] 2021-07-01 15:40:00 2021-07-02 08:32:30 Outpatient R KIM JONES [facility] [id number] [facility] 2021-07-01 15:40:00 2021-07-02 08:32:30 Outpatient R KIM JONES [facility] [id number] [facility] 2021-07-01 15:40:00 2021-07-02 08:32:30 Outpatient R KIM JONES [facility] [id number] [facility] 2021-07-01 15:40:00 2021-07-02 08:32:30 Outpatient R KIM JONES [facility] [id number] [facility] 2021-07-01 15:40:00 2021-07-02 08:32:30 Outpatient R KIM JONES [facility] [id number] [facility] 2021-07-01 15:40:00 2021-07-02 08:32:30 Outpatient R KIM JONES [facility] [id number] [facility] 2021-07-01 15:40:00 2021-07-02 08:32:30 Outpatient R KIM JONES [facility] [id number] [facility] 2021-07-01 15:40:00 2021-07-02 08:32:30 Outpatient R KIM JONES [facility] [id number] [facility] 2021-07-01 15:40:00 2021-07-02 08:32:30 Outpatient R KIM JONES [facility] [id number] [facility] 2021-07-01 15:40:00 2021-07-02 08:32:30 Outpatient R KIM JONES [facility] [id number] [facility] 2021-07-01 15:40:00 2021-07-02 08:32:30 Outpatient R KIM JONES [facility] [id number] [facility] 2021-07-01 15:40:00 2021-07-02 08:32:30 Office Visit [facility] 1.2.840.114 350.1.13.10 4.2.7.2.686 [id number] [facility] 2021-07-01 15:40:00 2021-07-02 08:32:30 Outpatient R KIM JONES [facility] [id number] [facility] 2021-07-01 15:40:00 2021-07-02 08:32:30 Outpatient KIM HU [facility] [id number] [facility] 2021-07-02 00:00:00 2021-07-02 00:00:00 [facility] 1.2.840.114 350.1.13.10 4.2.7.2.686 [id number] [facility] 2021-07-02 00:00:00 2021-07-02 00:00:00 [facility] 1.2.840.114 350.1.13.10 4.2.7.2.686 [id number] [facility] 2021-07-02 00:00:00 2021-07-02 00:00:00 Telephone [facility] 1.2.840.114 350.1.13.10 4.2.7.2.686 [id number] [facility] 2021-07-01 15:40:00 2021-07-01 15:40:00 Outpatient KIM HU [facility] [id number] [facility] 2021-07-01 15:40:00 2021-07-01 15:40:00 Outpatient KIM HU [facility] [id number] [facility] 2021-07-01 00:00:00 2021-07-01 00:00:00 Telephone Kim Jones [facility] 1..840.114 350.1.13.10 4.2.7.2.686 [id number] [facility] 2021-07-01 00:00:00 2021-07-01 00:00:00 Telephone Kim Jones [facility] 1.2.840.114 350.1.13.10 4.2.7.2.686 [id number] [facility] 2021-06-28 00:00:00 2021-06-28 00:00:00 Refill Maria E Fischer [facility] 1..840.114 350.1.13.10 4.2.7.2.686 [id number] [facility] 2021-06-26 16:38:40 2021-06-26 23:59:00 Outpatient R KIM JONES [facility] [id number] [facility] 2021-06-26 16:38:40 2021-06-26 23:59:00 Hospital Encounter Kim Jones [facility] 1..840.114 350.1.13.10 4.2.7.2.686 [id number] [facility] 2021-06-26 16:38:40 2021-06-26 23:59:00 Outpatient R KIM JONES [facility] [id number] [facility] 2021-06-26 00:00:00 2021-06-26 00:00:00 Outpatient R KIM JONES [facility] [id number] [facility] 2021-06-26 00:00:00 2021-06-26 00:00:00 Telephone Juan Mazariegos [facility] 1..840.114 350.1.13.10 4.2.7.2.686 [id number] [facility] 2021-06-25 14:00:00 2021-06-25 14:22:55 Outpatient R DELYe FRANCESCA, JOSE [facility] [id number] [facility] 2021-06-25 14:00:00 2021-06-25 14:22:55 Outpatient R KOFFI MAKIJUAN [facility] [id number] [facility] 2021-06-25 14:00:00 2021-06-25 14:22:55 Outpatient R KOFFI MAKIJUAN [facility] [id number] [facility] 2021-06-25 14:00:00 2021-06-25 14:22:55 Outpatient R KOFFI MAKIJUAN [facility] [id number] [facility] 2021-06-25 14:00:00 2021-06-25 14:22:55 Outpatient R KOFFI MAKIJUAN [facility] [id number] [facility] 2021-06-25 14:00:00 2021-06-25 14:22:55 Outpatient Paul MKAIJUAN [facility] [id number] [facility] 2021-06-25 14:00:00 2021-06-25 14:22:55 Outpatient R KOFFI MAKIJUAN [facility] [id number] [facility] 2021-06-25 14:00:00 2021-06-25 14:22:55 Outpatient R KOFFI MAKIJUAN [facility] [id number] [facility] 2021-06-25 14:00:00 2021-06-25 14:22:55 Outpatient R KOFFI MAKIJUAN [facility] [id number] [facility] 2021-06-25 14:00:00 2021-06-25 14:22:55 Outpatient R KOFFI MAKIUJAN [facility] [id number] [facility] 2021-06-25 14:00:00 2021-06-25 14:22:55 Outpatient R DELYe FRANCESCA, JOSE [facility] [id number] [facility] 2021-06-25 14:00:00 2021-06-25 14:22:55 Outpatient R KOFFI MAKIJUAN [facility] [id number] [facility] 2021-06-25 14:00:00 2021-06-25 14:22:55 Outpatient R KOFFI MAKI JUAN [facility] [id number] [facility] 2021-06-25 14:00:00 2021-06-25 14:22:55 Outpatient R KOFFI MAKIJUAN [facility] [id number] [facility] 2021-06-25 14:00:00 2021-06-25 14:22:55 Outpatient R KOFFI MAKIJUAN [facility] [id number] [facility] 2021-06-25 13:55:53 2021-06-25 14:22:55 Office Visit [facility] 1.840.114 [id number] [id number] [facility] 2021-06-22 00:00:00 2021-06-22 00:00:00 Orders Only Doctor Unassigned, [place] [facility] 1.840.114 350.1.13.10 [id number] [facility] 2021-06-20 11:20:00 2021-06-20 12:36:56 Outpatient R KIM JONES [facility] [id number] [facility] 2021-06-20 11:20:00 2021-06-20 12:36:56 Outpatient R KIM JONES [facility] [id number] [facility] 2021-06-20 11:08:22 2021-06-20 12:36:56 Office Visit RobertYvonneKim Orlin [facility] [id number] [id number] [id number] [facility] [id number] [facility] 2021-06-18 15:00:00 2021-06-18 15:00:00 Outpatient R KOFFI HAASJUAN Ordaz [facility] [id number] [facility] 2021-06-18 15:00:00 2021-06-18 15:00:00 Outpatient R DELYe FRANCESCA, JOSE [facility] [id number] [facility] 2021-06-18 15:00:00 2021-06-18 15:00:00 Outpatient R LAWANDAEVELIO FRANCESCAJUAN WHALEY [facility] [id number] [facility] 2021-06-18 15:00:00 2021-06-18 15:00:00 Outpatient R CAMILLESYDNEYEVELIO FRANCESCAJUAN WHALEY [facility] [id number] [facility] 2021-06-18 15:00:00 2021-06-18 15:00:00 Outpatient R KOFFI MAKIJUAN [facility] [id number] [facility] 2021-06-18 15:00:00 2021-06-18 15:00:00 Outpatient R KOFFI HAASJUAN Ordaz [facility] [id number] [facility] 2021-06-18 00:00:00 2021-06-18 00:00:00 Telephone Kim Jones [facility] [id number] [id number] [id number] [facility] 2021-06-18 00:00:00 2021-06-18 00:00:00 Telephone Kim Jones [facility] [facility] 1.2.840.114 350.1.13.10 4.2.7.2.686 [id number] [facility] 2021-06-17 00:00:00 2021-06-17 00:00:00 Telephone Kim Jones [facility] 1.2.840.114 350.1.13.10 4.2.7.2.686 [id number] [facility] 2021-06-17 00:00:00 2021-06-17 00:00:00 Telephone Kim Jones [facility] 1.2.840.114 350.1.13.10 4.2.7.2.686 [id number] [facility] 2021-06-14 15:20:00 2021-06-14 15:20:00 Outpatient KIM HU [facility] [id number] [facility] 2021-06-14 15:20:00 2021-06-14 15:20:00 Outpatient KIM HU [facility] [id number] [facility] 2021-06-14 15:20:00 2021-06-14 15:20:00 Outpatient KIM HU [facility] [id number] [facility] 2021-06-14 15:20:00 2021-06-14 15:20:00 Outpatient KIM HU [facility] [id number] [facility] 2021-06-14 15:20:00 2021-06-14 15:20:00 Outpatient KIM HU [facility] [id number] [facility] 2021-06-14 15:20:00 2021-06-14 15:20:00 Outpatient KIM HU [facility] [id number] [facility] 2021-06-14 15:20:00 2021-06-14 15:20:00 Outpatient SHAR HUBETH [facility] [id number] [facility] 2021-06-14 15:20:00 2021-06-14 15:20:00 [facility] [id number] [facility] 2021-06-14 15:20:00 2021-06-14 15:20:00 Outpatient KIM HU [facility] [id number] [facility] 2021-06-14 00:00:00 2021-06-14 00:00:00 Transition of Care Page Seth ..840.114 350.1.13.10 4.2.7.2.686 [id number] [facility] 2021-06-12 07:39:00 2021-06-13 14:00:00 Outpatient CRISS ALATORRE [facility] [id number] [facility] 2021-06-12 07:39:00 2021-06-13 14:00:00 Emergency Pia Watts David [facility] ..840.114 350.1.13.10 4.2.7.2.686 [id number] [facility] 2021-06-12 07:39:00 2021-06-13 14:00:00 Outpatient CRISS ALATORRE [facility] [id number] [facility] 2021-06-12 07:39:00 2021-06-13 14:00:00 Outpatient CRISS ALATORRE [facility] [id number] [facility] 2021-06-11 09:40:00 2021-06-11 09:40:00 Outpatient R [facility] [id number] [facility] 2021-06-11 09:40:00 2021-06-11 09:40:00 Outpatient R [facility] [id number] [facility] 2021-06-11 09:40:00 2021-06-11 09:40:00 Outpatient R [facility] [id number] [facility] 2021-06-11 09:40:00 2021-06-11 09:40:00 Outpatient R [facility] [id number] [facility] 2021-06-11 09:40:00 2021-06-11 09:40:00 Outpatient R [facility] [id number] [facility] 2021-06-11 09:40:00 2021-06-11 09:40:00 Outpatient R [facility] [id number] [facility] 2021-06-11 00:00:00 2021-06-11 00:00:00 Transition of Care Yvonne Fairbanks [facility] .840.114 350.1.13.10 4.2.7.2.686 [id number] [facility] 2021-06-11 00:00:00 2021-06-11 00:00:00 Telephone Kim Jones [facility] ..840.114 350.1.13.10 4.2.7.2.686 [id number] [facility] 2021-06-10 10:45:00 2021-06-10 15:00:00 Emergency [facility] [id number] [facility] 2021-06-10 10:45:00 2021-06-10 15:00:00 Emergency Mary Reynaga [facility] ..840.114 350.1.13.10 4.2.7.2.686 [id number] [facility] 2021-06-10 10:45:00 2021-06-10 15:00:00 Emergency X [facility] [id number] [facility] 2021-06-10 00:00:00 2021-06-10 00:00:00 Telephone JonesSurendrasincere Ordaz [facility] 1.2.840.114 350.1.13.10 4.2.7.2.686 [id number] [facility] 2021-06-10 00:00:00 2021-06-10 00:00:00 Telephone Jones Kim A [facility] 1.2.840.114 350.1.13.10 4.2.7.2.686 [id number] [facility] 2021-06-10 00:00:00 2021-06-10 00:00:00 Telephone Jones Kim A [facility] 1.2.840.114 350.1.13.10 4.2.7.2.686 [id number] [facility] 2021-06-07 23:27:00 2021-06-09 13:00:00 Outpatient X RATRA, [facility] [id number] General acute hospital 2021-06-07 23:27:00 2021-06-09 13:00:00 Outpatient X RATRA, [facility] [id number] General acute hospital 2021-06-07 23:27:00 2021-06-09 13:00:00 Outpatient X RATRA, [facility] [id number] General acute hospital 2021-06-07 23:27:00 2021-06-09 13:00:00 Outpatient X RATRA, [facility] [id number] General acute hospital 2021-06-07 23:27:00 2021-06-09 13:00:00 Outpatient X RATRA, [facility] [id number] General acute hospital 2021-06-07 23:27:00 2021-06-09 13:00:00 Outpatient X RATRA, [facility] [id number] General acute hospital 2021-06-07 23:27:00 2021-06-09 13:00:00 Outpatient X RATRA, [facility] [id number] General acute hospital 2021-06-07 23:27:00 2021-06-09 13:00:00 Outpatient X RATRA, [facility] [id number] General acute hospital 2021-06-07 23:27:00 2021-06-09 13:00:00 Outpatient X RATRA, [facility] [id number] General acute hospital 2021-06-07 23:27:00 2021-06-09 13:00:00 Outpatient X RATRA, [facility] [id number] General acute hospital 2021-06-07 23:27:00 2021-06-09 13:00:00 [facility] 1.2.840.114 350.1.13.10 4.2.7.2.686 [id number] [facility] 2021-06-07 23:27:00 2021-06-09 13:00:00 Outpatient X RATRA, [facility] [id number] General acute hospital 2021-06-07 23:27:00 2021-06-09 13:00:00 Outpatient X RATRA, [facility] [id number] General acute hospital 2021-06-07 23:27:00 2021-06-07 23:27:00 Outpatient X RATRA, [facility] [id number] General acute hospital 2021-06-07 15:40:00 2021-06-07 16:38:47 Outpatient R KIM JONES [facility] [id number] [facility] 2021-06-07 15:40:00 2021-06-07 16:38:47 Outpatient SHAR HUBETH [facility] [id number] [facility] 2021-06-07 14:43:51 2021-06-07 16:38:47 Office Visit Kim Jones [facility] 1.840.114 350.1.13.10 4.2.7.2.686 [id number] [facility] 2021-06-07 15:40:00 2021-06-07 15:40:00 [facility] [id number] [facility] 2021-06-07 15:40:00 2021-06-07 15:40:00 Outpatient R SHAR JONESBETH [facility] [id number] [facility] 2021-06-06 00:00:00 2021-06-06 00:00:00 Telephone Kim Jones [facility] 1.2840.114 350.1.13.10 4.2.7.2.686 [id number] [facility] 2021-06-06 00:00:00 2021-06-06 00:00:00 Patient Outreach Shahnaz Ulloa [facility] 1..84.114 350.1.13.10 4.2.7.2.686 [id number] [facility] 2021-06-06 00:00:00 2021-06-06 00:00:00 Orders Only Doctor Unassigned, [place] [facility] 1.84.114 350.1.13.10 4.2.7.2.686 [id number] [facility] 2021-06-04 15:02:35 2021-06-04 15:25:05 Office Visit Juan [facility] 1.2.840.114 350.1.13.10 4.2.7.2.686 [id number] [facility] 2021-06-04 15:00:00 2021-06-04 15:25:05 Outpatient JUAN HARRISON [facility] [id number] [facility] 2021-06-04 15:00:00 2021-06-04 15:25:05 Outpatient JUAN HARRISON [facility] [id number] [facility] 2021-06-04 15:00:00 2021-06-04 15:25:05 Outpatient JUAN HARRISON [facility] [id number] [facility] 2021-06-04 15:00:00 2021-06-04 15:25:05 Outpatient JUAN HARRISON [facility] [id number] [facility] 2021-06-04 15:00:00 2021-06-04 15:25:05 Outpatient JUAN HARRISON [facility] [id number] [facility] 2021-06-04 15:00:00 2021-06-04 15:25:05 Outpatient JUAN HARRISON [facility] [id number] [facility] 2021-06-04 15:00:00 2021-06-04 15:25:05 Outpatient JUAN HARRISON [facility] [id number] [facility] 2021-06-04 15:00:00 2021-06-04 15:25:05 Outpatient JUAN HARRISON [facility] [id number] [facility] 2021-06-04 15:00:00 2021-06-04 15:25:05 Outpatient R KOFFI HAASJUAN Ordaz [facility] [id number] [facility] 2021-06-04 15:00:00 2021-06-04 15:25:05 Outpatient R KOFFI HAASJUAN Ordaz [facility] [id number] [facility] 2021-06-04 15:00:00 2021-06-04 15:25:05 Outpatient R KOFFI MAKIJUAN [facility] [id number] [facility] 2021-06-04 15:00:00 2021-06-04 15:25:05 Outpatient R KOFFI HAASJUAN Ordaz [facility] [id number] [facility] 2021-06-04 15:00:00 2021-06-04 15:25:05 Outpatient R KOFFI MAKIJUAN [facility] [id number] [facility] 2021-06-04 15:00:00 2021-06-04 15:25:05 Outpatient R KOFFI MAKIJUAN [facility] [id number] [facility] 2021-06-04 15:00:00 2021-06-04 15:25:05 Outpatient R KOFFI HAASJUAN Ordaz [facility] [id number] [facility] 2021-06-04 15:00:00 2021-06-04 15:25:05 Outpatient R KOFFI MAKIJUAN [facility] [id number] [facility] 2021-06-04 15:00:00 2021-06-04 15:25:05 Outpatient R KOFFI MAKIJUAN [facility] [id number] [facility] 2021-06-04 15:00:00 2021-06-04 15:00:00 Outpatient R KOFFI MAKIJUAN [facility] [id number] [facility] 2021-06-04 15:00:00 2021-06-04 15:00:00 Outpatient JUAN HARRISON [facility] [id number] [facility] 2021-06-03 00:00:00 2021-06-03 00:00:00 Transition of Care Page Seth 1.2.840.114 350.1.13.10 4.2.7.2.686 [id number] [facility] 2021-05-30 12:12:00 2021-05-31 11:25:00 Outpatient X ISELASAMEERI [facility] [id number] [facility] 2021-05-30 12:12:00 2021-05-31 11:25:00 Outpatient X ISELA BJ [facility] [id number] [facility] 2021-05-30 12:12:00 2021-05-31 11:25:00 Emergency [facility] 1.2.840.114 350.1.13.10 4.2.7.2.686 [id number] [facility] 2021-05-30 12:12:00 2021-05-31 11:25:00 Outpatient X ISELA BJ [facility] [id number] [facility] 2021-05-30 12:12:00 2021-05-31 11:25:00 Outpatient X ISELA BJ [facility] [id number] [facility] 2021-05-30 10:00:00 2021-05-30 10:00:00 Outpatient JUAN HARRISON [facility] [id number] [facility] 2021-05-30 10:00:00 2021-05-30 10:00:00 Outpatient JUAN HARRISON [facility] [id number] [facility] 2021-05-30 10:00:00 2021-05-30 10:00:00 Outpatient JUAN HARRISON [facility] [id number] [facility] 2021-05-30 10:00:00 2021-05-30 10:00:00 Outpatient Paul MATHISYe FRANCESCA, JUAN [facility] [id number] [facility] 2021-05-30 10:00:00 2021-05-30 10:00:00 Outpatient JUAN HARRISON [facility] [id number] [facility] 2021-05-30 10:00:00 2021-05-30 10:00:00 Outpatient Paul MAKI JUAN [facility] [id number] [facility] 2021-05-30 10:00:00 2021-05-30 10:00:00 Outpatient JUAN HRARISON [facility] [id number] [facility] 2021-05-30 10:00:00 2021-05-30 10:00:00 Outpatient R DELYe FRANCESCA JUAN [facility] [id number] [facility] 2021-05-30 10:00:00 2021-05-30 10:00:00 Outpatient Paul MAKI JUAN [facility] [id number] [facility] 2021-05-30 10:00:00 2021-05-30 10:00:00 Outpatient JUAN HARRISON [facility] [id number] [facility] 2021-05-29 00:00:00 2021-05-29 00:00:00 Telephone Juan Mazariegos [facility] 1..840.114 350.1.13.10 4.2.7.2.686 [id number] [facility] 2021-05-29 00:00:00 2021-05-29 00:00:00 Orders Only Doctor Unassigned, [place] [facility] 1..840.114 350.1.13.10 4.2.7.2.686 [id number] [facility] 2021-05-28 10:27:21 2021-05-28 13:13:24 Office Visit Kim Jones [facility] 1.2.840.114 350.1.13.10 4.2.7.2.686 [id number] [facility] 2021-05-28 10:20:00 2021-05-28 13:13:24 Outpatient R KIM JONES [facility] [id number] [facility] 2021-05-28 10:20:00 2021-05-28 13:13:24 Outpatient R KIM JONES [facility] [id number] [facility] 2021-05-28 10:20:00 2021-05-28 13:13:24 Outpatient R KIM JONES [facility] [id number] [facility] 2021-05-28 10:20:00 2021-05-28 13:13:24 Outpatient R KIM JONES [facility] [id number] [facility] 2021-05-28 10:20:00 2021-05-28 13:13:24 Outpatient R KIM JONES [facility] [id number] [facility] 2021-05-28 10:20:00 2021-05-28 10:20:00 Outpatient R KIM JONES [facility] [id number] [facility] 2021-05-28 00:00:00 2021-05-28 00:00:00 Telephone Kim Jones [facility] 1.2.840.114 350.1.13.10 4.2.7.2.686 [id number] [facility] 2021-05-28 00:00:00 2021-05-28 00:00:00 Kim Anaya [facility] Lenore Menendez 1..840.114 350.1.13.10 4.2.7.2.686 [id number] [facility] 2021-05-27 00:00:00 2021-05-27 00:00:00 Transition of Care Rolo Pagedarwin Waller Silvia Marx 1..840.114 350.1.13.10 4.2.7.2.686 [id number] [facility] 2021-05-22 13:49:00 2021-05-24 15:38:00 Inpatient X JUAN MAZARIEGOS [facility] [id number] [facility] 2021-05-22 13:49:00 2021-05-24 15:38:00 Inpatient X JUAN MAZARIEGOS [facility] [id number] [facility] 2021-05-22 13:49:00 2021-05-24 15:38:00 Inpatient X JUAN MAZARIEGOS [facility] [id number] [facility] 2021-05-22 13:49:00 2021-05-24 15:38:00 Inpatient X JUAN MAZARIEGOS [facility] [id number] [facility] 2021-05-22 13:49:00 2021-05-24 15:38:00 Inpatient X JUAN MAZARIEGOS [facility] [id number] [facility] 2021-05-22 13:49:00 2021-05-24 15:38:00 Inpatient X JUAN MAZARIEGOS [facility] [id number] [facility] 2021-05-22 13:49:00 2021-05-24 15:38:00 Hospital Encounter Sherrie Taylor Jose [facility] 1..840.114 350.1.13.10 4.2.7.2.686 [id number] [facility] 2021-05-22 13:49:00 2021-05-24 15:38:00 Inpatient X JUAN MAZARIEGOS [facility] [id number] [facility] 2021-05-22 13:49:00 2021-05-24 15:38:00 Inpatient X KOFFI FRANCESCAJUAN WHALEY [facility] [id number] [facility] 2021-05-22 13:49:00 2021-05-24 15:38:00 Inpatient X JUAN MAZARIEGOS [facility] [id number] [facility] 2021-05-22 13:49:00 2021-05-24 15:38:00 Inpatient X JUAN MAZARIEGOS [facility] [id number] [facility] 2021-05-23 10:00:00 2021-05-23 10:00:00 Outpatient R CAMILLESYDNEYEVELIO FRANCESCAJUAN WHALEY [facility] [id number] [facility] 2021-05-23 10:00:00 2021-05-23 10:00:00 Outpatient R CAMILLESYDNEYEVELIO FRANCESCAJUAN WHALEY [facility] [id number] [facility] 2021-05-23 10:00:00 2021-05-23 10:00:00 Outpatient R KOFFI MAKIJUAN [facility] [id number] [facility] 2021-05-23 10:00:00 2021-05-23 10:00:00 Outpatient R KOFFI MAKIJUAN [facility] [id number] [facility] 2021-05-23 10:00:00 2021-05-23 10:00:00 Outpatient R KOFFI MAKIJUAN [facility] [id number] [facility] 2021-05-23 10:00:2021-05-23 10:00:00 Outpatient JUAN HARRISON [facility] [id number] [facility] 2021-05-23 10:00:00 2021-05-23 10:00:00 Outpatient R JUAN MAZARIEGOS [facility] [id number] [facility] 2021-05-23 10:00:00 2021-05-23 10:00:00 Outpatient R CAMILLEASHOKALISIA FRANCESCAJUAN WHALEY [facility] [id number] [facility] 2021-05-23 10:00:00 2021-05-23 10:00:00 Outpatient Paul CAMILLEASHOKJUAN MEEKS [facility] [id number] [facility] 2021-05-23 10:00:00 2021-05-23 10:00:00 Outpatient Paul JUAN MAZARIEGOS [facility] [id number] [facility] 2021-05-23 00:00:00 2021-05-23 00:00:00 [facility] 1.2.840.114 350.1.13.10 4.2.7.2.686 [id number] [facility] 2021-05-21 13:30:00 2021-05-21 13:54:00 Outpatient Paul CAMILLEASHOKRADHAPENGYe FRANCESCAJUAN WHALEY [facility] [id number] [facility] 2021-05-21 13:30:00 2021-05-21 13:54:00 Outpatient Paul CAMILLEASHOKALISIA FRANCESCAJUAN WHALEY [facility] [id number] [facility] 2021-05-21 13:30:00 2021-05-21 13:54:00 Outpatient Paul CAMILLEASHOKALISIA FRANCESCAJUAN WHALEY [facility] [id number] [facility] 2021-05-21 13:30:00 2021-05-21 13:54:00 Outpatient Paul HAASJUAN Ordaz [facility] [id number] [facility] 2021-05-21 13:30:00 2021-05-21 13:54:00 Outpatient R KOFFI HAASJUAN Ordaz [facility] [id number] [facility] 2021-05-21 13:30:00 2021-05-21 13:54:00 Outpatient R KOFFI MAKIJUAN [facility] [id number] [facility] 2021-05-21 13:30:00 2021-05-21 13:54:00 Outpatient R KOFFI MAKIJUAN [facility] [id number] [facility] 2021-05-21 13:30:00 2021-05-21 13:54:00 Outpatient R KOFFI MAKIJUAN [facility] [id number] [facility] 2021-05-21 13:30:00 2021-05-21 13:54:00 Outpatient R KOFFI MAKIJUAN [facility] [id number] [facility] 2021-05-21 13:30:00 2021-05-21 13:54:00 Outpatient Paul MAKIJUAN [facility] [id number] [facility] 2021-05-21 13:30:00 2021-05-21 13:54:00 Outpatient Paul MAKIJUAN [facility] [id number] [facility] 2021-05-21 13:30:00 2021-05-21 13:54:00 Outpatient R KOFFI MAKIJUAN [facility] [id number] [facility] 2021-05-21 13:30:00 2021-05-21 13:54:00 Outpatient R KOFFI MAKIJUAN [facility] [id number] [facility] 2021-05-21 13:30:00 2021-05-21 13:54:00 Outpatient R KOFFI MAKIJUAN [facility] [id number] [facility] 2021-05-21 13:30:00 2021-05-21 13:54:00 Outpatient JUAN HARRISON [facility] [id number] [facility] 2021-05-21 12:29:51 2021-05-21 13:54:00 Office Visit [facility] 1..840.114 350.1.13.10 4.2.7.2.686 [id number] [facility] 2021-05-21 13:30:00 2021-05-21 13:30:00 Outpatient JUAN HARRISON [facility] [id number] [facility] 2021-05-21 00:00:00 2021-05-21 00:00:00 Transition of Care Adilene Petersen 1.2.840.114 350.1.13.10 4.2.7.2.686 [id number] [facility] 2021-05-17 13:49:00 2021-05-19 17:56:00 Emergency Jairo Jordan [facility] 1.2.840.114 350.1.13.10 4.2.7.2.686 [id number] [facility] 2021-05-17 13:49:00 2021-05-19 17:56:00 Outpatient CRISS ALATORRE [facility] [id number] [facility] 2021-05-17 13:49:00 2021-05-19 17:56:00 Outpatient CRISS ALATORRE [facility] [id number] [facility] 2021-05-16 10:00:00 2021-05-16 10:00:00 Outpatient JUAN HARRISON [facility] [id number] [facility] 2021-05-16 10:00:00 2021-05-16 10:00:00 Outpatient Paul CAPUTOASHOKALISIA FRANCESCAJUAN WHALEY [facility] [id number] [facility] 2021-05-16 10:00:00 2021-05-16 10:00:00 Outpatient JUAN HARRISON [facility] [id number] [facility] 2021-05-16 10:00:00 2021-05-16 10:00:00 Outpatient Paul TAYLORJUAN WHALEY [facility] [id number] [facility] 2021-05-16 10:00:00 2021-05-16 10:00:00 Outpatient Paul TAYLORJUAN WHALEY [facility] [id number] [facility] 2021-05-16 10:00:00 2021-05-16 10:00:00 Outpatient Paul TAYLORJUAN WHALEY [facility] [id number] [facility] 2021-05-16 10:00:00 2021-05-16 10:00:00 Outpatient Paul CAMILLESYDNEYEVELIO FRANCESCAJUAN WHALEY [facility] [id number] [facility] 2021-05-16 10:00:00 2021-05-16 10:00:00 Outpatient Paul CAMILLEASHOKALISIA FRANCESCAJUAN WHALEY [facility] [id number] [facility] 2021-05-16 10:00:00 2021-05-16 10:00:00 Outpatient Paul MAKIJUAN [facility] [id number] [facility] 2021-05-16 10:00:00 2021-05-16 10:00:00 Outpatient Paul MAKIJUAN [facility] [id number] [facility] 2021-05-16 10:00:00 2021-05-16 10:00:00 Outpatient Paul MAKIJUAN [facility] [id number] [facility] 2021-05-16 10:00:00 2021-05-16 10:00:00 Outpatient JUAN HARRISON [facility] [id number] [facility] 2021-05-16 10:00:00 2021-05-16 10:00:00 Outpatient JUAN HARRISON [facility] [id number] [facility] 2021-05-16 10:00:00 2021-05-16 10:00:00 Outpatient JUAN HARRISON [facility] [id number] [facility] 2021-05-14 14:30:00 2021-05-14 14:30:00 Outpatient JUAN HARRISON [facility] [id number] [facility] 2021-05-13 00:00:00 2021-05-13 00:00:00 Telephone Kim Jones [facility] [id number] [facility] 2021-05-13 00:00:00 2021-05-13 00:00:00 Transition of Care Page Seth [id number] [facility] 2021-05-13 00:00:00 2021-05-13 00:00:00 Telephone Kim Jones [facility] [id number] [facility] 2021-05-07 09:37:00 2021-05-10 18:14:00 Hospital Encounter Pia Watts [facility] [id number] [facility] 2021-05-07 09:37:00 2021-05-10 18:14:00 Inpatient X [place] ESPINOZA [facility] [id number] [facility] 2021-05-07 09:37:00 2021-05-10 18:14:00 Inpatient X [place] ESPINOZA [facility] [id number] [facility] 2021-05-07 09:37:00 2021-05-10 18:14:00 Inpatient X [place] ESPINOZA [facility] [id number] [facility] 2021-05-07 09:37:00 2021-05-10 18:14:00 Inpatient X [place] ESPINOZA [facility] [id number] [facility] 2021-05-09 10:30:00 2021-05-09 10:30:00 Outpatient R JUAN MAZARIEGOS [facility] [id number] [facility] 2021-05-09 10:30:00 2021-05-09 10:30:00 Outpatient JUAN HARRISON [facility] [id number] [facility] 2021-05-09 10:30:00 2021-05-09 10:30:00 Outpatient JUAN HARRISON [facility] [id number] [facility] 2021-05-09 10:30:00 2021-05-09 10:30:00 Outpatient JUAN HARRISON [facility] [id number] [facility] 2021-05-09 10:30:00 2021-05-09 10:30:00 Outpatient JUAN HARRISON [facility] [id number] [facility] 2021-05-09 10:30:00 2021-05-09 10:30:00 Outpatient JUAN HARRISON [facility] [id number] [facility] 2021-05-09 10:30:00 2021-05-09 10:30:00 Outpatient R JUAN MAZARIEGOS [facility] [id number] [facility] 2021-05-09 10:30:00 2021-05-09 10:30:00 Outpatient R JUAN MAZARIEGOS [facility] [id number] [facility] 2021-05-09 10:30:00 2021-05-09 10:30:00 Outpatient R JUAN MAZARIEGOS [facility] [id number] [facility] 2021-05-09 10:30:00 2021-05-09 10:30:00 Outpatient JUAN HARRISON [facility] [id number] [facility] 2021-05-07 14:30:00 2021-05-07 14:30:00 Outpatient JUAN HARRISON [facility] [id number] [facility] 2021-05-07 00:00:00 2021-05-07 00:00:00 Telephone Juan Mazariegos [facility] Medical Office Building 1.2840.114 350.1.13.10 4.2.7.2.686 [id number] [facility] 2021-05-07 00:00:00 2021-05-07 00:00:00 Transition of Care Page Seth 1.2840.114 350.1.13.10 4.2.7.2.686 [id number] [facility] 2021-05-02 12:01:00 2021-05-05 15:40:00 Hospital Encounter Debby Brown Jel[facility] 1.2840.114 350.1.13.10 4.2.7.2.686 [id number] [facility] 2021-05-02 10:05:35 2021-05-02 10:20:35 Nurse Visit 1, Adc Infusion Nurse Juan Mazariegos [facility] 1.2.840.114 350.1.13.10 4.2.7.2.686 [id number] [facility] 2021-05-02 10:00:00 2021-05-02 10:00:00 Outpatient JUAN HARRISON [facility] [id number] [facility] 2021-05-02 10:00:00 2021-05-02 10:00:00 Outpatient JUAN HARRISON [facility] [id number] [facility] 2021-05-02 10:00:00 2021-05-02 10:00:00 Outpatient JUAN HARRISON [facility] [id number] [facility] 2021-05-02 10:00:00 2021-05-02 10:00:00 Outpatient JUAN HARRISON [facility] [id number] [facility] 2021-05-02 10:00:00 2021-05-02 10:00:00 Outpatient JUAN HARRISON [facility] [id number] [facility] 2021-05-02 10:00:00 2021-05-02 10:00:00 Outpatient JUAN HARRISON [facility] [id number] [facility] 2021-05-02 10:00:00 2021-05-02 10:00:00 Outpatient JUAN HARRISON [facility] [id number] [facility] 2021-05-02 10:00:00 2021-05-02 10:00:00 Outpatient JUAN HARRISON [facility] [id number] [facility] 2021-05-02 10:00:00 2021-05-02 10:00:00 Outpatient R KOFFI HAASJUAN Ordaz [facility] [id number] [facility] 2021-05-02 10:00:00 2021-05-02 10:00:00 Outpatient Paul HAASJUAN Ordaz [facility] [id number] [facility] 2021-05-02 10:00:00 2021-05-02 10:00:00 Outpatient Paul MAKIJUAN [facility] [id number] [facility] 2021-05-02 00:00:00 2021-05-02 00:00:00 Telephone Juan Mazariegos [facility] 1.2.840.114 350.1.13.10 4.2.7.2.686 [id number] [facility] 2021-04-26 14:00:00 2021-04-26 14:53:04 Outpatient Paul MAKIJUAN [facility] [id number] [facility] 2021-04-26 14:00:00 2021-04-26 14:53:04 Outpatient Paul MAKIJUAN [facility] [id number] [facility] 2021-04-26 14:00:00 2021-04-26 14:53:04 Outpatient Paul MAKI JUAN [facility] [id number] [facility] 2021-04-26 14:00:00 2021-04-26 14:53:04 Outpatient Paul MAKIJUAN [facility] [id number] [facility] 2021-04-26 14:00:00 2021-04-26 14:53:04 Outpatient Paul MAKIJUAN [facility] [id number] [facility] 2021-04-26 14:00:00 2021-04-26 14:53:04 Outpatient JUAN HARRISON [facility] [id number] [facility] 2021-04-26 14:00:00 2021-04-26 14:00:00 Outpatient R JUAN MAZARIEGOS [facility] [id number] [facility] 2021-04-26 13:07:20 2021-04-26 13:27:20 Nurse Visit Nurse, Juan Roque [facility] 1..840.114 350.1.13.10 4.2.7.2.686 [id number] [facility] 2021-04-24 00:00:00 2021-04-24 00:00:00 Telephone Maria E Fischer [facility] 1..840.114 350.1.13.10 4.2.7.2.686 [id number] [facility] 2021-04-23 14:30:00 2021-04-23 14:56:56 Outpatient R KOFFI MAKI [facility] [id number] [facility] 2021-04-23 14:30:00 2021-04-23 14:56:56 Outpatient JUAN HARRISON [facility] [id number] [facility] 2021-04-23 14:27:07 2021-04-23 14:56:56 Office Visit Juan Mazariegos [facility] 1..840.114 350.1.13.10 4.2.7.2.686 [id number] [facility] 2021-04-23 14:30:00 2021-04-23 14:30:00 Outpatient JUAN HARRISON [facility] [id number] [facility] 2021-04-22 10:58:00 2021-04-22 14:18:00 Emergency Mary Reynaga [facility] 1..114 350.1.13.10 4.2.7.2.686 [id number] [facility] 2021-04-22 10:58:00 2021-04-22 14:18:00 Emergency X MARY REYNAGA [facility] ERT [id number] [facility] 2021-04-22 10:58:00 2021-04-22 14:18:00 Emergency X MARY REYNAGA [facility] ERT [id number] [facility] 2021-04-22 00:00:00 2021-04-22 00:00:00 [facility]..114 350.1.13.10 4.2.7.2.686 [id number] [facility] 2021-04-22 00:00:00 2021-04-22 00:00:00 [facility] 1..114 350.1.13.10 4.2.7.2.686 [id number] [facility] 2021-04-20 00:00:00 2021-04-20 00:00:00 Orders Only Doctor Unassigned, [place] [facility] 1.0.114 350.1.13.10 4.2.7.2.686 [id number] [facility] 2021-04-18 00:00:00 2021-04-18 00:00:00 Orders Only Doctor Unassigned, [place] [facility] 1.840.114 350.1.13.10 4.2.7.2.686 [id number] [facility] 2021-04-17 00:00:00 2021-04-17 00:00:00 Telephone [facility] 1.114 350.1.13.10 4.2.7.2.686 [id number] [facility] 2021-04-16 16:30:00 2021-04-16 16:30:00 Outpatient R JUAN MAZARIEGOS [facility] [id number] [facility] 2021-04-16 16:30:00 2021-04-16 16:30:00 Outpatient R JUAN MAZARIEGOS [facility] [id number] [facility] 2021-04-16 16:30:00 2021-04-16 16:30:00 Outpatient JUAN HARRISON [facility] [id number] [facility] 2021-04-16 16:30:00 2021-04-16 16:30:00 Outpatient JUAN HARRISON [facility] [id number] [facility] 2021-04-16 16:30:00 2021-04-16 16:30:00 Outpatient R JUAN MAZARIEGOS [facility] [id number] [facility] 2021-04-16 00:00:00 2021-04-16 00:00:00 Telephone Juan Mazariegos [facility] .114 350.1.13.10 4.2.7.2.686 [id number] [facility] 2021-04-15 00:00:00 2021-04-15 00:00:00 Orders Only Doctor Unassigned, [place] [facility] .114 350.1.13.10 4.2.7.2.686 [id number] [facility] 2021-04-12 00:00:00 2021-04-12 00:00:00 Telephone Kim Jones [facility] 1.2.840.114 350.1.13.10 4.2.7.2.686 [id number] [facility] 2021-04-12 00:00:00 2021-04-12 00:00:00 Telephone Robert Ikm A [facility] 1.2.840.114 350.1.13.10 4.2.7.2.686 [id number] [facility] 2021-04-11 00:00:00 2021-04-11 00:00:00 Telephone Kim Jones [facility] 1.2.840.114 350.1.13.10 4.2.7.2.686 [id number] [facility] 2021-04-11 00:00:00 2021-04-11 00:00:00 Telephone Juan Mazariegos [facility] Office Building 1.2.840.114 350.1.13.10 4.2.7.2.686 [id number] [facility] 2021-04-11 00:00:00 2021-04-11 00:00:00 Telephone Jones Kim A [facility] 1.2.840.114 350.1.13.10 4.2.7.2.686 [id number] [facility] 2021-04-09 14:30:00 2021-04-09 14:54:06 Outpatient JUAN HARRISON [facility] [id number] [facility] 2021-04-09 14:30:00 2021-04-09 14:54:06 Outpatient JUAN HARRISON [facility] [id number] [facility] 2021-04-09 14:30:00 2021-04-09 14:54:06 Outpatient Paul MAKI JUAN [facility] [id number] [facility] 2021-04-09 14:30:00 2021-04-09 14:54:06 Outpatient Paul MAKIJUAN [facility] [id number] [facility] 2021-04-09 14:30:00 2021-04-09 14:54:06 Outpatient Paul MAKI JUAN [facility] [id number] [facility] 2021-04-09 14:30:00 2021-04-09 14:54:06 Outpatient Paul MAKI JUAN [facility] [id number] [facility] 2021-04-09 14:30:00 2021-04-09 14:54:06 Outpatient JUAN HARRISON [facility] [id number] [facility] 2021-04-09 14:30:00 2021-04-09 14:54:06 Outpatient Paul MAKI JUAN [facility] [id number] [facility] 2021-04-09 14:30:00 2021-04-09 14:54:06 Outpatient Paul MAKI JUAN [facility] [id number] [facility] 2021-04-09 14:30:00 2021-04-09 14:54:06 Outpatient JUAN HARRISON [facility] [id number] [facility] 2021-04-09 13:56:45 2021-04-09 14:54:06 Office Visit Juan [facility]iegos [facility] 1.2.840.114 350.1.13.10 4.2.7.2.686 [id number] [facility] 2021-04-09 14:30:00 2021-04-09 14:30:00 Outpatient JUAN HARRISON [facility] [id number] [facility] 2021-04-09 00:00:00 2021-04-09 00:00:00 Telephone Juan [facility]azariegos [facility] 1..114 350.1.13.10 4.2.7.2.686 [id number] [facility] 2021-04-09 00:00:00 2021-04-09 00:00:00 Telephone Juan Mazariegos [facility] Office Building 1.0.114 350.1.13.10 4.2.7.2.686 [id number] [facility] 2021-04-05 00:00:00 2021-04-05 00:00:00 Transition of Care Page Seth Silvia Yenza 1..114 350.1.13.10 4.2.7.2.686 [id number] [facility] 2021-03-11 20:29:00 2021-04-04 18:25:00 Inpatient X JUAN MAZARIEGOS [facility] [id number] [facility] 2021-03-11 20:29:00 2021-04-04 18:25:00 Hospital Encounter Michelle Miranda Khaled F Iturrizaga- [place], Jose C [facility] 1.84.114 350.1.13.10 4.2.7.2.686 [id number] [facility] 2021-03-11 20:29:00 2021-04-04 18:25:00 Inpatient X JUAN MAZARIEGOS [facility] [id number] [facility] 2021-03-11 20:29:00 2021-04-04 18:25:00 Inpatient X JUAN MAZARIEGOS [facility] [id number] [facility] 2021-03-11 20:29:00 2021-04-04 18:25:00 Inpatient X JUAN MAZARIEGOS [facility] [id number] [facility] 2021-03-11 20:29:00 2021-04-04 18:25:00 Inpatient X JUAN MAZARIEGOS [facility] [id number] [facility] 2021-03-11 20:29:00 2021-04-04 18:25:00 Inpatient X JUAN MAZARIEGOS [facility] [id number] [facility] 2021-03-11 20:29:00 2021-04-04 18:25:00 Inpatient X JUAN MAZARIEGOS [facility] [id number] [facility] 2021-04-03 10:45:00 2021-04-03 11:30:00 Surgery Fran Trinh [facility] .114 350.1.13.10 4.2.7.2.686 [id number] [facility] 2021-04-03 00:00:00 2021-04-03 00:00:00 Telephone David Ladd [facility] ..114 350.1.13.10 4.2.7.2.686 [id number] [facility] 2021-04-02 00:00:00 2021-04-02 00:00:00 Committee Review Jackelyn Pulido [facility] .84.114 350.1.13.10 4.2.7.2.686 [id number] [facility] 2021-04-02 00:00:00 2021-04-02 00:00:00 Letter (Out) Jackelyn Pulido [facility] .84.114 350.1.13.10 4.2.7.2.686 [id number] [facility] 2021-04-02 00:00:00 2021-04-02 00:00:00 Telephone Juan [facility]iegos [facility] 1.2.840.114 350.1.13.10 4.2.7.2.686 [id number] [facility] 2021-03-26 14:20:00 2021-03-26 14:20:00 Outpatient R KELYL KNOWLES [facility] [id number] [facility] 2021-03-21 12:26:00 2021-03-21 23:59:00 Hospital Encounter Hallie Greenberg 1.2.840.1 13115.1.1 3.104.2.7 .3.595307 .8 [id number] [facility] 2021-03-21 00:00:00 2021-03-21 00:00:00 Telephone Jackelyn Pulido 1.2.840.1 64000.1.1 3.104.2.7 .3.117962 .8 [id number] [facility] 2021-03-21 00:00:00 2021-03-21 00:00:00 Travel 1.2.840.1 60615.1.1 3.104.2.7 .3.436937 .8 1.2.840.114 350.1.13.10 4.2.7.3.698 084.8 [id number] [facility] 2021-03-12 13:30:00 2021-03-12 13:30:00 Outpatient R [facility] [id number] [facility] 2021-03-11 00:00:00 2021-03-11 00:00:00 Travel 1.2.840.1 60980.1.1 3.104.2.7 .3.341024 .8 1.2.840.114 350.1.13.10 4.2.7.3.698 084.8 [id number] [facility] 2021-03-04 07:30:00 2021-03-04 07:30:00 Outpatient PIERO LUCASIAN [facility] [id number] [facility] 2021-03-04 07:30:00 2021-03-04 07:30:00 Outpatient Paul HEATH ADRIANNA [facility] [id number] [facility] 2021-03-04 07:30:00 2021-03-04 07:30:00 Outpatient Paul HEATH ADRIANNA [facility] [id number] [facility] 2021-03-04 07:30:00 2021-03-04 07:30:00 Outpatient PIERO LUCASIAN [facility] [id number] [facility] 2021-03-04 07:30:00 2021-03-04 07:30:00 Outpatient PIERO LUCASIAN [facility] [id number] [facility] 2021-03-04 07:30:00 2021-03-04 07:30:00 Outpatient Paul HEATH ADRIANNA [facility] [id number] [facility] 2021-02-28 16:19:00 2021-03-01 15:10:00 Inpatient EM Stephan Juan HCAPM INTE.02 [id number] [facility] 2021-02-28 08:44:00 2021-02-28 08:44:00 Outpatient Stephan Juan HCACL LABO [id number] [facility] 2021-02-27 00:00:00 2021-02-27 00:00:00 Transition of Care Page Seth 1.2.840.1 92471.1.1 3.104.2.7 .3.761618 .8 [id number] [facility] 2021-02-27 00:00:00 2021-02-27 00:00:00 Transition of Care Page Seth .2.840.114 350.1.13.10 4.2.7.2.686 [id number] 2021-02-26 00:00:00 2021-02-26 00:00:00 Transition of Care Page Seth 1.2.840.1 24913.1.1 3.104.2.7 .3.331141 .8 [id number] [facility] 2021-02-26 00:00:00 2021-02-26 00:00:00 Transition of Care Page Seth 1.2.840.114 350.1.13.10 4.2.7.2.686 [id number] 2021-02-25 00:00:00 2021-02-25 00:00:00 [place] 1.2.840.1 22999.1.1 3.104.2.7 .3.691396 .8 [id number] [facility] 2021-02-25 00:00:00 2021-02-25 00:00:00 Ayush Hill [facility] 1.2.840.114 350.1.13.10 4.2.7.2.686 [id number] 2021-02-22 20:27:00 2021-02-24 15:41:00 Emergency Doris Amaral [facility] 1.2.840.1 31247.1.1 3.104.2.7 .3.419975 .8 [id number] [facility] 2021-02-22 20:27:00 2021-02-24 15:41:00 Outpatient X DORIS AMARAL [facility] [id number] [facility] 2021-02-22 20:27:00 2021-02-24 15:41:00 Emergency Doris Amaral [facility] 1.2.840.114 350.1.13.10 4.2.7.2.686 [id number] 2021-02-22 14:50:00 2021-02-22 14:50:00 Outpatient ADRIANNA LUCAS [facility] [id number] [facility] 2021-02-22 00:00:00 2021-02-22 00:00:00 Travel 1.2.840.1 46506.1.1 3.104.2.7 .3.023570 .8 1.2.840.114 350.1.13.10 4.2.7.3.698 084.8 [id number] [facility] 2021-02-21 12:41:00 2021-02-21 15:15:00 Emergency Mary Reynaga 1.2.840.1 43745.1.1 3.104.2.7 .3.284244 .8 [id number] [facility] 2021-02-21 12:41:00 2021-02-21 15:15:00 Emergency [facility] [id number] [facility] 2021-02-21 00:00:00 2021-02-21 00:00:00 Travel 1.2.840.1 23525.1.1 3.104.2.7 .3.810287 .8 1.2.840.114 350.1.13.10 4.2.7.3.698 084.8 [id number] [facility] 2021-02-21 00:00:00 2021-02-21 00:00:00 Transition of Care Page Seth 1.2.840.1 73157.1.1 3.104.2.7 .3.397907 .8 [id number] [facility] 2021-02-20 00:00:00 2021-02-20 00:00:00 Transition of Care Page Seth 1.2.840.1 89081.1.1 3.104.2.7 .3.539392 .8 [id number] [facility] 2021-02-18 18:41:00 2021-02-19 16:16:00 Emergency WattsPia David 1.2.840.1 58632.1.1 3.104.2.7 .3.461733 .8 [id number] [facility] 2021-02-18 18:41:00 2021-02-19 16:16:00 Outpatient CRISS ALATORRE [facility] [id number] [facility] 2021-02-18 12:57:37 2021-02-18 18:40:00 Hospital Encounter Kim Jones 1.2.840.1 07511.1.1 3.104.2.7 .3.997589 .8 [id number] [facility] 2021-02-18 00:00:00 2021-02-18 00:00:00 Outpatient R KIM JONES [facility] [id number] [facility] 2021-02-18 00:00:00 2021-02-18 00:00:00 Travel 1.2.840.1 46473.1.1 3.104.2.7 .3.800245 .8 1.2.840.114 350.1.13.10 4.2.7.3.698 084.8 [id number] [facility] 2021-02-15 00:00:00 2021-02-15 00:00:00 Orders Only Doctor Unassigned, [place] 1.2.840.1 74846.1.1 3.104.2.7 .3.076083 .8 [id number] [facility] 2021-02-13 00:00:00 2021-02-13 00:00:00 Patient Outreach Shahnaz Ulloa 1.2.840.1 80657.1.1 3.104.2.7 .3.827093 .8 [id number] [facility] 2021-02-13 00:00:00 2021-02-13 00:00:00 Patient Outreach Shahnaz Ulloa [facility] [place] [facility] 1.2.840.114 350.1.13.10 4.2.7.2.686 [id number] 2021-02-07 08:20:00 2021-02-07 09:47:54 Outpatient KIM HU [facility] [id number] [facility] 2021-02-07 08:08:07 2021-02-07 09:47:54 Office Visit Kim Jones 1.2.840.1 17783.1.1 3.104.2.7 .3.281834 .8 [id number] [facility] 2021-02-07 08:20:00 2021-02-07 08:20:00 Outpatient KIM HU [facility] [id number] [facility] 2021-02-07 00:00:00 2021-02-07 00:00:00 Orders Only Doctor Unassigned, [place] 1.2.840.1 77913.1.1 3.104.2.7 .3.049913 .8 [id number] [facility] 2021-02-07 00:00:00 2021-02-07 00:00:00 Travel 1.2.840.1 69598.1.1 3.104.2.7 .3.468712 .8 1.2.840.114 350.1.13.10 4.2.7.3.698 084.8 [id number] [facility] 2021-02-04 20:15:00 2021-02-06 16:26:00 Inpatient EM Precious Bae [facility]02 [id number] [facility] 2021-02-04 12:54:00 2021-02-04 19:20:00 Emergency EM Isac Rouse [facility] [id number] [facility] 2021-02-01 00:00:00 2021-02-01 00:00:00 Telephone Robert Kim Orlin 1.2.840.1 49356.1.1 3.104.2.7 .3.964490 .8 [id number] [facility] 2021-01-23 15:00:00 2021-01-23 15:00:00 Outpatient R LADD, SENDIL [facility] [id number] [facility] 2021-01-23 15:00:00 2021-01-23 15:00:00 [facility] [id number] 2021-01-23 15:00:00 2021-01-23 15:00:00 Outpatient R LADD, SENDIL [facility] [id number] [facility] 2021-01-23 15:00:00 2021-01-23 15:00:00 [facility] [id number] [facility] 2021-01-23 15:00:00 2021-01-23 15:00:00 [facility] [id number] [facility] 2021-01-23 15:00:00 2021-01-23 15:00:00 [facility] [id number] [facility] 2021-01-22 00:00:00 2021-01-22 00:00:00 [place] 1.2.840.1 [id number] 3.104.2.7 .3.664726 .8 [id number] [facility] 2021-01-18 13:54:00 2021-01-18 17:11:00 Emergency Mary Reynaga 1.2.840.1 [id number] 3.104.2.7 .3.014399 .8 [id number] [facility] 2021-01-18 13:54:00 2021-01-18 17:11:00 Emergency X MARY REYNAGA [facility] ERT [id number] [facility] 2021-01-18 00:00:00 2021-01-18 00:00:00 Travel 1.2.840.1 [id number] 3.104.2.7 .3.176207 .8 1.2.840.114 350.1.13.10 4.2.7.3.698 084.8 [id number] [facility] 2021-01-10 14:15:33 2021-01-10 14:57:15 Office Visit David Ladd 1.2.840.1 [id number] 3.104.2.7 .3.530549 .8 [id number] [facility] 2021-01-10 14:00:00 2021-01-10 14:57:15 Outpatient R DAVID LADD [facility] [id number] [facility] 2021-01-10 09:00:00 2021-01-10 09:00:00 Outpatient R [facility] [id number] [facility] 2021-01-10 00:00:00 2021-01-10 00:00:00 Orders Only Doctor Unassigned, [place] 1.2.840.1 [id number] 3.104.2.7 .3.332316 .8 [id number] [facility] 2021-01-10 00:00:00 2021-01-10 00:00:00 Travel 1.2.840.1 67018.1.1 3.104.2.7 .3.681483 .8 1.2.840.114 350.1.13.10 4.2.7.3.698 084.8 [id number] [facility] 2021-01-08 19:30:00 2021-01-08 19:30:00 Outpatient R SUNSHINE KLEIN STRAHIL [facility] [id number] [facility] 2021-01-08 19:30:00 2021-01-08 19:30:00 Outpatient R ATANASOV, STRAHIL ATANASOV, STRAHIL [facility] [id number] [facility] 2021-01-08 19:30:00 2021-01-08 19:30:00 Outpatient R ATANASOV, STRAHIL ATANASOV, [place] [facility] [place] [id number] [facility] 2021-01-08 19:30:00 2021-01-08 19:30:00 Outpatient R ATANASOV, STRAHIL ATANASOV, [place] [facility] [place] [id number] [facility] 2021-01-08 19:30:00 2021-01-08 19:30:00 Outpatient R ATANASOV, STRAHIL ATANASOV, STRAHIL [facility] [id number] [facility] 2021-01-08 19:30:00 2021-01-08 19:30:00 Outpatient R ATANASOV, STRAHIL [facility] [id number] 2021-01-08 11:15:00 2021-01-08 11:15:00 Outpatient R [facility] [id number] [facility] 2021-01-03 15:04:00 2021-01-07 14:00:00 Inpatient EM Yared Scott [facility].02 [id number] 59 [facility] 2021-01-04 11:45:00 2021-01-04 11:45:00 Outpatient R [facility] [id number] [facility] 2021-01-04 00:00:00 2021-01-04 00:00:00 Telephone Maria E Fischer 1.2.840.1 [id number] 3.104.2.7 .3.079368 .8 [id number] [facility] 2021-01-03 21:53:00 2021-01-03 21:53:00 Outpatient Yared Scott [facility] [id number] [facility] 2021-01-03 09:40:00 2021-01-03 10:43:02 Outpatient MARIA E TRAN [facility] [id number] [facility] 2021-01-03 09:40:00 2021-01-03 10:00:00 Telemedici ne Visit Maria E Fischer 1.2.840.1 [id number] [id number] [facility] 2021-01-03 09:40:00 2021-01-03 09:40:00 Outpatient R MARIA E FISCHER [facility] [id number] [facility] 2021-01-03 09:40:00 2021-01-03 09:40:00 Outpatient R MARIA E FISCHER [facility] [id number] [facility] 2021-01-03 00:00:00 2021-01-03 00:00:00 Telephone Robert Kim Orlin 1.2.840.1 [id number] [id number] [facility] 2021-01-02 16:20:00 2021-01-02 16:20:00 Outpatient R MARIA E FISCHER [facility] [id number] [facility] 2021-01-02 16:20:00 2021-01-02 16:20:00 Outpatient R MARIA E FISCHER [facility] [id number] [facility] 2021-01-02 16:20:00 2021-01-02 16:20:00 Outpatient MARIA E TRAN [facility] [id number] [facility] 2021-01-02 16:20:00 2021-01-02 16:20:00 Outpatient MARIA E TRAN [facility] [id number] [facility] 2021-01-02 16:20:00 2021-01-02 16:20:00 Outpatient R MARIA E FISCHER [facility] [id number] [facility] 2021-01-02 16:20:00 2021-01-02 16:20:00 Outpatient R MARIA E FISCHER [facility] [id number] [facility] 2021-01-02 00:00:00 2021-01-02 00:00:00 Orders Only Doctor Unassigned, [place] 1.2.840.1 [id number] 3.104.2.7 .[id number] .[id number] [facility] 2021-01-01 13:47:00 2021-01-01 15:39:00 Emergency Mary Reynaga 1.2.840.1 [id number] 3.104.2.7 .[id number] .8 [id number] [facility] 2021-01-01 11:30:00 2021-01-01 11:30:00 Outpatient R LADDDAVID [facility] [id number] [facility] 2021-01-01 08:41:00 2021-01-01 11:14:00 Emergency Mary Reynaga 1.2.840.1 [id number] 3.104.2.7 .[id number] .8 [id number] [facility] 2021-01-01 08:00:00 2021-01-01 09:20:28 Outpatient R MILAN RAYO [facility] [id number] [facility] 2021-01-01 08:00:00 2021-01-01 09:20:28 Outpatient R MILAN RAYO [facility] [id number] [facility] 2021-01-01 08:00:00 2021-01-01 09:20:28 Outpatient R MILAN RAYO [facility] [id number] [facility] 2021-01-01 08:00:00 2021-01-01 09:20:28 Outpatient R MILAN RAYO [facility] [id number] [facility] 2021-01-01 08:00:00 2021-01-01 09:20:28 Outpatient R MILAN RAYO [facility] [id number] [facility] 2021-01-01 08:00:00 2021-01-01 09:20:28 Outpatient R MILAN RAYO [facility] [id number] [facility] 2021-01-01 07:49:24 2021-01-01 09:20:28 Office Visit Milan Rayo 1.2.840.1 [id number] 3.104.2.7 .[id number] .8 [id number] [facility] 2021-01-01 00:00:00 2021-01-01 00:00:00 Telephone Milan Rayo 1.2.840.1 [id number] 3.104.2.7 .[id number] .8 [id number] [facility] 2021-01-01 00:00:00 2021-01-01 00:00:00 Travel 1.2.840.1 [id number] 3.104.2.7 .[id number] .8 1.2.840.114 [id number] 4.2.7.3.698 084.8 [id number] [facility] 2020-12-28 14:20:00 2020-12-28 14:20:00 Outpatient AYUSH DUNAWAY HOWARD [facility] [id number] [facility] 2020-12-28 11:00:00 2020-12-28 11:18:06 Outpatient R DAVID LADD [facility] [id number] [facility] 2020-12-28 11:00:00 2020-12-28 11:18:06 Outpatient R DAVID LADD [facility] [id number] [facility] 2020-12-28 11:00:00 2020-12-28 11:18:06 Outpatient R DAVID LADD [facility] [id number] [facility] 2020-12-28 11:00:00 2020-12-28 11:18:06 Outpatient R DAVID LADD [facility] [id number] [facility] 2020-12-28 11:00:00 2020-12-28 11:18:06 Outpatient R DAVID LADD [facility] [id number] [facility] 2020-12-28 11:00:00 2020-12-28 11:18:06 Outpatient R LADDDAVID [facility] [id number] [facility] 2020-12-28 11:00:00 2020-12-28 11:18:06 Outpatient R LADDDAVID [facility] [id number] [facility] 2020-12-27 13:27:00 2020-12-27 14:19:00 Emergency X PIA WATTS [facility] ERT [id number] [facility] 2020-12-27 13:27:00 2020-12-27 14:19:00 Emergency X PIA WATTS [facility] ERT [id number] [facility] 2020-12-27 13:27:00 2020-12-27 14:19:00 Emergency X PIA WATTS [facility] ERT [id number] [facility] 2020-12-27 13:27:00 2020-12-27 14:19:00 Emergency X PIA WATTS [facility] ERT [id number] [facility] 2020-12-27 13:27:00 2020-12-27 14:19:00 Emergency X PIA WATTS [facility] ERT [id number] [facility] 2020-12-26 13:30:00 2020-12-26 13:30:00 Outpatient R MILAN RAYO [facility] [id number] [facility] 2020-12-26 13:30:00 2020-12-26 13:30:00 Outpatient R MILAN RAYO [facility] [id number] [facility] 2020-12-26 13:30:00 2020-12-26 13:30:00 Outpatient R MILAN RAYO [facility] [id number] [facility] 2020-12-26 13:30:00 2020-12-26 13:30:00 Outpatient R MILAN RAYO [facility] [id number] [facility] 2020-12-26 13:30:00 2020-12-26 13:30:00 Outpatient R MILAN RAYO [facility] [id number] [facility] 2020-12-26 13:30:00 2020-12-26 13:30:00 Outpatient R MILAN RAYO [facility] [id number] [facility] 2020-12-26 13:30:00 2020-12-26 13:30:00 Outpatient R MILAN RAYO [facility] [id number] [facility] 2020-12-17 14:43:00 2020-12-19 13:30:00 Inpatient X THELMA GALLARDO [facility] [id number] [facility] 2020-12-18 19:30:00 2020-12-18 19:30:00 Outpatient R SUNSHINE KLEIN STRAHIL [facility] [id number] [facility] 2020-12-17 13:15:00 2020-12-17 13:15:00 Outpatient R CHUCKIE RODRÍGUEZ [facility] [id number] [facility] 2020-12-17 13:15:00 2020-12-17 13:15:00 Outpatient R CHUCKIE RODRÍGUEZ [facility] [id number] [facility] 2020-12-14 15:15:00 2020-12-14 15:15:00 Outpatient R [facility] [id number] [facility] 2020-12-14 15:15:00 2020-12-14 15:15:00 Outpatient R [facility] [id number] [facility] 2020-12-14 15:15:00 2020-12-14 15:15:00 Outpatient R [facility] [id number] [facility] 2020-12-14 15:15:00 2020-12-14 15:15:00 Outpatient R [facility] [id number] [facility] 2020-12-14 15:15:00 2020-12-14 15:15:00 Outpatient R [facility] [id number] [facility] 2020-12-14 15:15:00 2020-12-14 15:15:00 Outpatient R [facility] [id number] [facility] 2020-12-14 09:15:00 2020-12-14 09:15:00 Outpatient R [facility] [id number] [facility] 2020-12-11 11:34:00 2020-12-12 12:45:00 Outpatient X SAMEER WEISSI [facility] [id number] [facility] 2020-12-11 10:40:00 2020-12-11 11:23:17 Outpatient R ELENI KELLY [facility] [id number] [facility] 2020-12-11 10:40:00 2020-12-11 11:23:17 Outpatient R ELENI KELLY [facility] [id number] [facility] 2020-12-11 10:40:00 2020-12-11 11:23:17 Outpatient R ELENI KELLY [facility] [id number] [facility] 2020-12-11 10:40:00 2020-12-11 11:23:17 Outpatient R ELENI KELLY [facility] [id number] [facility] 2020-12-11 10:40:00 2020-12-11 11:23:17 Outpatient R ELENI KELLY [facility] [id number] [facility] 2020-12-11 10:40:00 2020-12-11 10:40:00 Outpatient R KELLY KNOWLES [facility] [id number] [facility] 2020-12-10 00:00:00 2020-12-10 23:59:00 Outpatient R [facility] [id number] [facility] 2020-12-10 00:00:00 2020-12-10 00:00:00 Outpatient KELLY KNOWLES [facility] [id number] [facility] 2020-12-07 10:00:00 2020-12-07 10:19:12 Outpatient R DAVID LADD [facility] [id number] [facility] 2020-12-07 10:00:00 2020-12-07 10:19:12 Outpatient R LADDDAVID [facility] [id number] [facility] 2020-12-07 10:00:00 2020-12-07 10:19:12 Outpatient R LADDDAVID [facility] [id number] [facility] 2020-12-07 10:00:00 2020-12-07 10:19:12 Outpatient R LADDDAVID VTMB [facility] [id number] [facility] 2020-12-07 10:00:00 2020-12-07 10:19:12 Outpatient R LADDDAVID [facility] [id number] [facility] 2020-12-07 10:00:00 2020-12-07 10:19:12 Outpatient R LADDDAVID [facility] [id number] [facility] 2020-12-07 10:00:00 2020-12-07 10:19:12 Outpatient R LADD SENDDANE [facility] [id number] [facility] 2020-12-07 10:00:00 2020-12-07 10:00:00 Outpatient R WILBERTO DAVID [facility] [id number] [facility] 2020-11-30 16:20:00 2020-12-05 11:58:00 Inpatient EM Elisha Yougandhar [facility] TELE [id number] [facility] 2020-11-30 19:30:00 2020-11-30 19:30:00 Outpatient SUNSHINE GALLAGHER STRAHIL [facility] [id number] [facility] 2020-11-29 14:00:00 2020-11-29 14:00:00 Outpatient CM CUMMINGS [facility] [id number] [facility] 2020-11-29 14:00:00 2020-11-29 14:00:00 Outpatient CM CUMMINGS [facility] [id number] [facility] 2020-11-29 14:00:00 2020-11-29 14:00:00 Outpatient CM CUMMINGS [facility] [id number] [facility] 2020-11-29 14:00:00 2020-11-29 14:00:00 Outpatient CM CUMMINGS [facility] [id number] [facility] 2020-11-29 14:00:00 2020-11-29 14:00:00 Outpatient CM CUMMINGS [facility] [id number] [facility] 2020-11-29 14:00:00 2020-11-29 14:00:00 Outpatient CM CUMMINGS [facility] [id number] [facility] 2020-11-29 09:43:42 2020-11-29 09:43:42 Inpatient HCAPM HCAPM [id number] 33 [facility] 2020-11-28 09:00:00 2020-11-28 09:00:00 Outpatient Paul [facility] [id number] [facility] 2020-11-27 19:30:00 2020-11-27 19:30:00 Outpatient SUNSHINE GALLAGHER STRAUTWandy [facility] [id number] [facility] 2020-11-27 19:30:00 2020-11-27 19:30:00 Outpatient R ATAGABRIELAOV, STRAHIL ATANASOV, STRAHIL [facility] [id number] [facility] 2020-11-27 19:30:00 2020-11-27 19:30:00 Outpatient R ATANASOV, STRAHIL ATANASOV, STRAHIL [facility] [id number] [facility] 2020-11-27 19:30:00 2020-11-27 19:30:00 Outpatient R ATANASOV, STRAHIL ATANASOV, STRAHIL [facility] [id number] [facility] 2020-11-27 19:30:00 2020-11-27 19:30:00 Outpatient R STONEYOV, STRAHIL ATANASOV, STRAHIL [facility] [id number] [facility] 2020-11-27 19:30:00 2020-11-27 19:30:00 Outpatient R STONEYOV, STRAHIL ATANASOV, STRAHIL [facility] [id number] [facility] 2020-11-26 11:30:00 2020-11-26 11:30:00 Outpatient R [facility] [id number] [facility] 2020-11-20 14:00:00 2020-11-20 14:00:00 Outpatient R DAVID LADD [facility] [id number] [facility] 2020-11-14 00:00:00 2020-11-14 00:00:00 Outpatient R MARIA E FISCHER [facility] [id number] [facility] 2020-11-14 00:00:00 2020-11-14 00:00:00 Outpatient R MARIA E FISCHER [facility] [id number] [facility] 2020-11-14 00:00:00 2020-11-14 00:00:00 Outpatient R MARIA E FISCHER [facility] [id number] [facility] 2020-11-14 00:00:00 2020-11-14 00:00:00 Outpatient R MARIA E FISCHER [facility] [id number] [facility] 2020-11-10 19:30:00 2020-11-10 19:30:00 Outpatient R SUNSHINE KLIEN STRAHIL [facility] [id number] [facility] 2020-11-08 12:00:00 2020-11-08 12:00:00 Outpatient R [facility] [id number] [facility] 2020-11-07 13:00:00 2020-11-07 13:00:00 Outpatient R SUNSHINE KLEIN STRAUTWandy [facility] [id number] [facility] 2020-11-02 08:40:00 2020-11-02 08:40:00 Outpatient AYUSH DUNAWAY HOWARD [facility] [id number] [facility] 2020-11-02 08:40:00 2020-11-02 08:40:00 Outpatient AYUSH DUNAWAY HOWARD [facility] [id number] [facility] 2020-11-02 08:40:00 2020-11-02 08:40:00 Outpatient AYUSH DUNAWAY HOWARD [facility] [id number] [facility] 2020-11-02 08:40:00 2020-11-02 08:40:00 Outpatient AYUSH DUNAWAY HOWARD [facility] [id number] [facility] 2020-11-02 08:40:00 2020-11-02 08:40:00 Outpatient AYUSH DUNAWAY HOWARD [facility] [id number] [facility] 2020-11-02 08:40:00 2020-11-02 08:40:00 Outpatient AYUSH DUNAWAY HOWARD [facility] [id number] [facility] 2020-10-31 10:00:00 2020-10-31 10:27:10 Outpatient DAVID MATUTE [facility] [id number] [facility] 2020-10-31 10:00:00 2020-10-31 10:27:10 Outpatient R DAVID LADD [facility] [id number] [facility] 2020-10-31 10:00:00 2020-10-31 10:27:10 Outpatient R DAVID LADD [facility] [id number] [facility] 2020-10-31 10:00:00 2020-10-31 10:27:10 Outpatient R DAVID LADD [facility] [id number] [facility] 2020-10-31 10:00:00 2020-10-31 10:00:00 Outpatient R LADDDAVID [facility] [id number] [facility] 2020-10-24 09:01:00 2020-10-25 16:45:00 Inpatient U MARIA E WELSH [facility] [id number] [facility] 2020-10-12 09:51:00 2020-10-13 12:38:00 Outpatient X GILSONPAOLAOH [facility] [id number] [facility] 2020-10-11 09:20:00 2020-10-11 09:20:00 Outpatient R MARIA E FISCHER [facility] [id number] [facility] 2020-10-02 10:00:00 2020-10-02 11:14:31 Outpatient R WILBERTO DAVID [facility] [id number] [facility] 2020-10-02 10:00:00 2020-10-02 11:14:31 Outpatient R WILBERTO DAVID [facility] [id number] [facility] 2020-10-02 10:00:00 2020-10-02 11:14:31 Outpatient R WILBERTO DAVID [facility] [id number] [facility] 2020-10-02 10:00:00 2020-10-02 10:00:00 Outpatient R DAVID LADD [facility] [id number] [facility] 2020-09-11 13:00:00 2020-09-11 13:46:40 Outpatient R KELLY KNOWLES [facility] [id number] [facility] 2020-09-11 13:00:00 2020-09-11 13:46:40 Outpatient R KELLY KNOWLES [facility] [id number] [facility] 2020-09-11 13:00:00 2020-09-11 13:46:40 Outpatient R KELLY KNOWLES [facility] [id number] [facility] 2020-09-11 13:00:00 2020-09-11 13:00:00 Outpatient R KELLY KNOWLES [facility] [id number] [facility] 2020-09-04 08:30:00 2020-09-04 08:30:00 Outpatient R DAVID LADD [facility] [id number] [facility] 2020-09-03 10:00:00 2020-09-03 11:08:35 Outpatient R DAVID LADD [facility] [id number] [facility] 2020-09-03 10:00:00 2020-09-03 11:08:35 Outpatient R DAVID LADD [facility] [id number] [facility] 2020-09-03 10:00:00 2020-09-03 10:00:00 Outpatient R DAVID LADD [facility] [id number] [facility] 2020-08-27 08:00:00 2020-08-28 16:04:00 Outpatient X [place] ESPINOZA [facility] [id number] [facility] 2020-08-27 15:45:00 2020-08-27 15:45:00 Outpatient R JANICE VINES [facility] [id number] [facility] 2020-08-12 22:05:00 2020-08-12 23:50:00 Emergency X MARY REYNAGA [facility] ERT [id number] [facility] 2020-07-30 05:18:00 2020-08-09 15:32:00 Inpatient X THELMA GALLARDO [facility] [id number] [facility] 2020-07-30 05:18:00 2020-08-09 15:32:00 Inpatient X THELMA GALLARDO [facility] [id number] [facility] 2020-07-30 05:18:00 2020-08-09 15:32:00 Inpatient X THELMA GALLARDO [facility] [id number] [facility] 2020-07-23 11:00:00 2020-07-23 11:00:00 Outpatient DAVID MATUTE [facility] [id number] [facility] 2020-07-04 09:45:00 2020-07-05 13:00:00 Outpatient X ANGIE LISANDRA [facility] [id number] [facility] 2020-06-28 00:02:00 2020-06-28 01:33:00 Emergency X ALAN AMARALGWEN [facility] ERT [id number] [facility] 2020-06-28 00:02:00 2020-06-28 01:33:00 Emergency X ALAN AMARALGWEN [facility] ERT [id number] [facility] 2020-06-26 08:00:00 2020-06-26 08:00:00 Outpatient REBECCA SAUCEDO [facility] [id number] [facility] 2020-06-26 08:00:00 2020-06-26 08:00:00 Outpatient REBECCA SAUCEDO [facility] [id number] [facility] 2020-06-26 08:00:00 2020-06-26 08:00:00 Outpatient REBECCA SAUCEDO [facility] [id number] [facility] 2020-06-08 13:30:00 2020-06-08 13:30:00 Outpatient DAVID MATUTE [facility] [id number] [facility] 2020-06-08 13:30:00 2020-06-08 13:30:00 Outpatient DAVID MATUTE [facility] [id number] [facility] 2020-05-30 00:00:00 2020-05-30 00:00:00 Outpatient R KIM JONES [facility] [id number] [facility] 2020-05-30 00:00:00 2020-05-30 00:00:00 Outpatient [facility] [id number] [facility] 2020-05-22 16:20:00 2020-05-22 16:20:00 [facility] [id number] [facility] 2020-05-15 09:41:00 2020-05-16 12:59:00 Outpatient X [place] ESPINOZA [facility] [id number] [facility] 2020-05-15 16:00:00 2020-05-15 16:00:00 Outpatient DAVID MATUTE [facility] [id number] [facility] 2020-05-03 10:40:00 2020-05-03 10:40:00 Outpatient Paul THOMASJONES, KIM [facility] [id number] [facility] 2020-04-30 09:07:00 2020-05-02 14:10:00 Inpatient X [place] ESPINOZA [facility] [id number] [facility] 2020-04-17 09:53:31 2020-04-17 23:59:00 Outpatient R RADIOLOGY [facility] [id number] [facility] 2020-04-17 00:00:00 2020-04-17 00:00:00 Outpatient R RADIOLOGY [facility] [id number] [facility] 2020-04-02 10:09:00 2020-04-04 11:59:00 Inpatient U [place] ESPINOZA [facility] [id number] [facility] 2020-04-02 10:00:00 2020-04-02 10:00:00 Outpatient DAVID MATUTE [facility] [id number] [facility] 2020-03-07 08:27:00 2020-03-08 13:05:00 Outpatient [place] WITT [facility] [id number] [facility] 2020-03-06 09:40:00 2020-03-06 09:40:00 Outpatient R CORNELIA SANDERSON [facility] [id number] [facility] 2020-02-06 11:15:00 2020-02-06 11:15:00 Outpatient R JOSE MARLOW [facility] [id number] [facility] 2020-02-05 09:47:40 2020-02-05 12:00:00 Emergency X DENIS KNOX [facility] ERT [id number] [facility] 2020-01-31 08:20:00 2020-01-31 08:20:00 Outpatient R KIM JONES [facility] [id number] [facility] 2020-01-17 07:06:06 2020-01-17 09:48:00 Emergency X DORIS AMARAL [facility] ERT [id number] [facility] 2020-01-09 11:14:35 2020-01-13 15:51:00 Inpatient X ABBY COHEN [facility] MPU [id number] [facility] 2019-12-29 14:00:00 2019-12-29 14:00:00 Outpatient R DAVID LADD [facility] [id number] [facility] 2019-12-28 13:45:00 2019-12-28 13:45:00 Outpatient R MARIA E FISCHER [facility] [id number] [facility] 2019-12-20 08:00:00 2019-12-20 08:00:00 Outpatient R KIM JONES [facility] [id number] [facility] 2019-12-16 13:18:28 2019-12-17 12:30:00 Outpatient X [place] ESPINOZA [facility] [id number] [facility] 2019-12-09 14:24:00 2019-12-10 13:40:00 Outpatient U DAVID LADD [facility] [id number] [facility] 2019-12-09 11:00:00 2019-12-09 11:00:00 Outpatient R DAVID LADD [facility] [id number] [facility] 2019-10-28 09:30:00 2019-10-28 09:30:00 Outpatient R DAVID LADD [facility] [id number] [facility] 2019-10-27 16:00:00 2019-10-27 16:00:00 Outpatient R MARIA E FISCHER [facility] [id number] [facility] 2019-10-17 08:57:37 2019-10-18 16:37:00 Inpatient X OH ESPINOZA [facility] [id number] [facility] 2019-10-12 14:00:00 2019-10-12 14:00:00 Outpatient R SUNSHINE KLEIN STRAHIL [facility] [id number] [facility] 2019-10-06 10:00:00 2019-10-06 10:00:00 Outpatient MARIA E TRAN [facility] [id number] [facility] 2019-09-27 20:03:19 2019-09-29 12:43:00 Inpatient X JANIYA WALDRON [facility] [id number] [facility] 2019-09-15 11:00:00 2019-09-15 12:06:04 Outpatient R DAVID LADD [facility] [id number] [facility] 2019-09-08 12:40:00 2019-09-08 14:26:13 Outpatient MARIA E TRAN [facility] [id number] [facility] 2019-08-23 16:00:00 2019-08-23 16:00:00 Outpatient R KIM JONES [facility] [id number] [facility] 2019-08-05 10:13:21 2019-08-05 23:59:00 Outpatient R KIM JONES [facility] [id number] [facility] 2019-08-04 13:30:00 2019-08-04 14:24:09 Outpatient R SALOME GORDON [facility] [id number] [facility] 2019-08-01 13:00:00 2019-08-01 14:09:07 Outpatient R ROBERTKIM [facility] [id number] [facility] 2019-07-19 08:32:03 2019-07-20 17:30:00 Inpatient X JANIYA WALDRON [facility] [id number] [facility] 2015-02-25 10:52:00 2015-02-25 15:20:00 Emergency X JO RANDLE [facility] ERT [id number] [facility] Results Test Description Test Time Test Comments Results Result Co [facility] 08:30:30* Test Item Value Reference Range Interpretation Comme nts NT-proBNP (test code = 80948-4) 3260 pg/mL <=125 H JACOB (test code = JACOB) Positive: Heart Failure Likely Lab Interpretation (test code = 38064-4) [facility]normal [facility] 08:22:32* Test Item Value Reference Range Interpretation Comme nts MAGNESIUM (test code = 5380351218) 1.7 mg/dL 1.7-2.4 Lab Interpretation (test cod e = 09586-4) Normal [facility] (NA, K, CL, CO2, GLUCOSE, BUN, CREATININE, CA)2024-04-06 08:22:27* Test Item Value Reference Range Interpretation Comme nts NA (test code = 5951110529) 139 mmol/L 135-145 K (test code = 9390325500) 3.4 mmol/L 3.5-5.0 L CL (test code = 8374621642) 99 mmol/L 98-108 CO2 TOTAL (test code = 1527264349) 31 mmol/L 23-31 AGAP (test code = 5850688557) 9 2-16 BUN (test code = 1907279961) 20 mg/dL 7-23 GLUCOSE (test code = 7838648917) 93 mg/dL 70-110 CREATININE (test code = 2160-0) 1.43 mg/dL 0.60-1.25 H CALCIUM (test code = 6287125308) 8.7 mg/dL 8.6-10.6 eGFR (test code = 75703-4) 57.2 mL/min/1.73m2 CKD-EPI eGFR (2020). Assuming creatinine has been stable day-to-day for at least three months, the eGFR indicates Category G3a (45 - 59 mL/min/1.73 m2) Lab Interpretation (test code = 08797-9) Abnormal [facility] with [id number] 08:06:05* Test Item Value Reference Range Interpretation Comme nts WBC (test code = 6690-2) 4.63 4.20-10.70 RBC (test code = 789-8) 5.05 4.26-5.52 HGB (test code = 718-7) 13.5 g/dL 12.2-16.4 HCT (test code = 4544-3) 42.6 % 38.4-49.3 MCV (test code = 787-2) 84.4 fL 81.7-95.6 MCH (test code = 785-6) 26.7 pg 26.1-32.7 MCHC (test code = 786-4) 31.7 g/dL 31.2-35.0 RDW-SD (test code = 19796-3) 51.8 fL 38.5-51.6 H RDW-CV (test code = 788-0) 17.1 % 12.1-15.4 H PLT (test code = 777-3) 190 150-328 MPV (test code = 39779-9) 10.7 fL 9.8-13.0 NRBC/100 WBC (test code = 6165832767) 0.6 0.0-10.0 NRBC x10^3 (test code = 9385431272) 0.03 See_Comment [Automated messa ge] The system which generated this result transmitted reference range: 10*3/?L. The reference range was not used to interpret this result as normal/abnormal. GRAN MAT (NEUT) % (test code = 770-8) 46.1 % IMM GRAN % (test code = 1129717140) 0.20 % LYMPH % (test code = 736-9) 38.9 % MONO % (test code = 5905-5) 12.7 % EOS % (test code = 713-8) 1.7 % BASO % (test code = 706-2) 0.4 % GRAN MAT x10^3(ANC) (test code = 6395219079) 2.13 10*3/uL 1.99-6.95 IMM GRAN x10^3 (test code = 1134911094) 0.00-0.06 LYMPH x10^3 (test code = 731-0) 1.80 10*3/uL 1.09-3.23 MONO x10^3 (test code = 742-7) 0.59 10*3/uL 0.36-1.02 EOS x10^3 (test code = 711-2) 0.08 10*3/uL 0.06-0.53 BASO x10^3 (test code = 704-7) 0.01-0.09 Lab Interpretation (test code = 66723-9) Abnormal [facility] GLUCOSE (AUTOMATED)2024-04-06 01:31:46* Test Item Value Reference Range Interpretation Comme nts POCT GLU (test code = 0762846566) 83 mg/dL 70-110 Lab Interpretation (test cod e = 74716-7) Normal [facility] GLUCOSE (AUTOMATED)2024-04-05 21:52:12* Test Item Value Reference Range Interpretation Comme nts POCT GLU (test code = 2199262172) 157 mg/dL 70-110 H Lab Interpretation (test cod e = 04810-1) Abnormal [facility] GLUCOSE (AUTOMATED)2024-04-05 17:16:47* Test Item Value Reference Range Interpretation Comme nts POCT GLU (test code = 3525285443) 134 mg/dL 70-110 H Lab Interpretation (test cod e = 71556-2) Abnormal [facility] GLUCOSE (AUTOMATED)2024-04-05 12:49:45* Test Item Value Reference Range Interpretation Comme nts POCT GLU (test code = 2136990777) 110 mg/dL 70-110 Lab Interpretation (test cod e = 37868-0) Normal [facility] GLUCOSE (AUTOMATED)2024-04-05 01:20:10* Test Item Value Reference Range Interpretation Comme nts POCT GLU (test code = 3118321259) 73 mg/dL 70-110 Lab Interpretation (test cod e = 63687-7) [facility] 22:06:08* Test Item Value Reference Range Interpretation Comme nts POCT GLU (test code = 2112333888) 65 mg/dL 70-110 L Lab Interpretation (test cod e = 85832-9) [facility] [id number] 18:01:13EXAM: XR CHEST 1 VW COMPARISON: Chest x-ray on 06/05/2022 HISTORY: chest pain FINDINGS: Lines/Devices: Left chest wall AICD/pacemaker with its tips terminating inthe right atrium, right ventricle and coronary sinus. Lungs: Normal to low lung volumes. Retrocardiac opacities are present,likely representing atelectasis. Trace left pleural effusion may bepresent. Heart/Mediastinum: Marked cardiomegaly. Chronic central pulmonary vascularcongestion. Bones and soft tissues: No osseous abnormality is visualized.[facility] Critical [id number] 16:50:00Michelle Miranda MD ? ? 04/05/2024 ?1:53 PMCritical Care Performed by: Michelle Miranda MDAuthorized by: Michelle Miranda MD ?Critical care provider statement: ?Critical care time (minutes): ?45 ?Critic al care time was exclusive of: ?Separately billable procedures and treating other patients and teaching time ?Critical care was necessary to treat or prevent imminent or life-threatening deterioration of the following conditions: ?Circulatory failure ?Critical care was time spent personally by me on the following activities: ?Development of treatment plan with patient or surrogate, evaluation of patient's response to treatment, examination of patient, obtaining history from patient or surrogate, ordering and performing treatments and interventions, ordering and review of laboratory studies, ordering and review of radiographic studies, pulse oximetry, re-evaluation of patient's condition and review of old charts ?Care discussed with: admitting provider ?Comments: ? Due to a high probability of clinically significant, life threatening deterioration, the patient required my highest level of preparedness to intervene emergently and I personally spent this critical care time directly and personally managing the patient. This critical care time included obtaining a history; examining the patient; pulse oximetry; ordering and review of studies; arranging urgent treatment with developmentof a management plan; evaluation of patient's response to treatment; frequent reassessment; and, discussions with other providers.This critical care time was performed to assess and manage the high probability of imminent, life-threatening deterioration that could result in multi-organ failure. It was exclusive of separately billable procedures and treating other patients.[facility]2023-[facility]-31 02:35:11* Test Item Value Reference Range Interpretation Comme nts Height (test code = 5782369048) 74 in Weight (test code = 5523171317) 300 lbs Systolic BP (test code = 0532320386) 107 mmHg Diastolic BP (test code = 7935231998) 80 mmHg Heart Rate (test code = 9300307969) 90 bpm BSA (test code = 2128748825) 2.6 m2 LVIDD (test code = 6119618705) 6.10 cm Left Ventricular End Diastolic Volume by Teichholz Method (test code = 9742296) 184.5 mL IVS (test code = 0596675221) 1.55 cm Interventricular Septum Diastolic Thickness by 2D (test code = 9477815) 1.55 cm LVPWD (test code = 6320483725) 1.62 cm PW (test code = 7179608986) 1.62 cm 0.6-1.1 EF(Teich) (test code = 7712900382) 19.30 % LVIDS (test code = 3534361910) 5.50 cm Left Ventricular End Systolic Volume by Teichholz Method (test code = 7694235) 148.8 mL FS (test code = 8404020866) 9 % EF - 2D (test code = 65028671) 19.30 % LVOT diameter (test code = 9457244799) 2.22 cm LVOT area (test code = 1982991570) 3.90 cm2 TR Peak Sommer (test code = 3418725687) 237.4 cm/s Triscuspid Valve Regurgitation Peak Gradient (test code = 1547140325) 22.5 mmHg ACS (test code = 0879739189) 2.20 cm Ao root diam (test code = 7341262003) 3.80 cm Aortic root (test code = 9926288047) 3.8 cm Ao root annulus (test code = 4298115922) 3.8 cm LA size (test code = 3808029511) 4.4 cm E wave decelartion time (test code = 3169904238) 0.14 s MV Prop V (test code = 8640191563) 30.80 cm/s Tapse (test code = 5437904684) 1.63 cm LVOT stroke volume (test code = 7143050280) 63.10 cm3 LVOT peak sommer (test code = 6521243264) 101.7 cm/s LVOT mn grad (test code = 7920750001) 1.8 mmHg AV LVOT peak gradient (test code = 8446448590) 4.1 mmHg LVOT peak VTI (test code = 2690960626) 16.4 cm LV V1 mean (test code = 5643791633) 62.00 cm/s Aortic valve mean velocity (test code = 8893468010) 51.8 cm/s Ao peak sommer (test code = 0658240520) 81.0 cm/s Ao VTI (test code = 6078570756) 13.5 cm AV area by cont VTI (test code = 3555792191) 4.7 cm2 AV area peak sommer (test code = 1727572733) 4.8 cm2 Ao max PG (test code = 0031153458) 2.60 mm[Hg] AV peak gradient (test code = 2515574968) 2.6 mmHg AV valve area (test code = 1996640470) 4.70 cm2 AV mean gradient (test code = 4232919092) 1.26 mmHg Radiology Study observation (narrative) (test code = 03005-9) JACOB (test code = JACOB) ?Left?Ventricle: Left ventricle is moderately dilated. Severely increased wall thickness. Severely reduced systolic function with a visually estimated EF of 15 - 20%. Diastolic dysfunction. ?Right?Ventricle: Right ventricle size is normal. Mildly reduced systolic function. ?Tricuspid?Valve: Mild transvalvular regurgitation. Right ventricular systolic pressure is normal. ?RA pressure is 0-5 mmHg. No stenosis. ?Pericardium: No pericardial effusion. ?Aorta: Mildly enlarged ascending aorta (3.6 cm). Left VentricleLeft ventricle is moderately dilated. Severely increased wall thickness. Severely reduced systolic function with a visually estimated EF of 15 - 20%. Diastolic dysfunction.Right VentricleRight ventricle size is normal. Mildly reduced systolic function. There is a pacemaker lead in the right ventricle.Left AtriumLeft atrium size is normal.Right AtriumRight atrium size is normal. Lead present in the right atrium.IVC/SVCIVC diameter is less than or equal to 21 mm and decreases greater than 50% during inspiration; therefore the estimated right atrial pressure is normal (~0-5 mmHg).Mitral ValveMildly thickened leaflets. Mild mitral annular calcification. Trace transvalvular regurgitation. No stenosis.Tricuspid ValveTricuspid valve structure is normal. Mild transvalvular regurgitation. Right ventricular systolic pressure is normal. RA pressure is 0-5 mmHg. No stenosis.Aortic ValveTricuspid. No transvalvular regurgitation. No evidence of aortic stenosis.Pulmonic ValveNot well visualized. Trace transvalvular regurgitation. No stenosis.Ascending AortaMildly enlarged ascending aorta (3.6 cm).PericardiumThe pericardium is normal. No pericardial effusion.Study DetailsStudy quality experienced technical difficulty. A complete echocardiogram was performed using 2D, color flow Doppler and spectral Doppler. The apical, parasternal and subcostal views were obtained. 5 mL of Lumason ultrasound enhancing agent used. [facility]. METABOLIC PANEL (69804)2023-03-28 04:43:53* Test Item Value Reference Range Interpretation Comme nts NA (test code = 5232158165) 138 mmol/L 135-145 K (test code = 7364730753) 4.2 mmol/L 3.5-5.0 CL (test code = 0919697136) 102 mmol/L 98-108 CO2 TOTAL (test code = 5417547908) 28 mmol/L 23-31 AGAP (test code = 4718748718) 8 2-16 BUN (test code = 1385588157) 41 mg/dL 7-23 H GLUCOSE (test code = 8446369454) 118 mg/dL 70-110 H CREATININE (test code = 9904021937) 1.93 mg/dL 0.60-1.25 H TOTAL BILI (test code = 5998248211) 0.6 mg/dL 0.1-1.1 CALCIUM (test code = 5387662579) 9.2 mg/dL 8.6-10.6 T PROTEIN (test code = 5961574236) 8.1 g/dL 6.3-8.2 ALBUMIN (test code = 2416244838) 4.2 g/dL 3.5-5.0 ALK PHOS (test code = 9066845700) 73 U/L 34-122 ALTv (test code = 1742-6) 26 U/L 5-50 AST(SGOT) (test code = 5351705450) 29 U/L 13-40 eGFR (test code = 2146630807) 36.2 mL/min/1.73m2 JACOB (test code = JACOB) Association of [...] or abnormalities in imaging tests). Lab Interpretation (test code = 25784-0) Abnormal [facility] WITH [id number] 04:31:08* Test Item Value Reference Range Interpretation Comme nts WBC (test code = 6690-2) 6.19 See_Comment [Automated IDMission] The system which generated this result transmitted reference range: 4.20 - 10.70 10*3/?L. The reference range was not used to interpret this result as normal/abnormal. RBC (test code = 789-8) 5.44 See_Comment [Automated messa ge] The system which generated this result transmitted reference range: 4.26 - 5.52 10*6/?L. The reference range was not used to interpret this result as normal/abnormal. HGB (test code = 718-7) 14.2 g/dL 12.2-16.4 HCT (test code = 4544-3) 44.0 % 38.4-49.3 MCV (test code = 787-2) 80.9 fL 81.7-95.6 L MCH (test code = 785-6) 26.1 pg 26.1-32.7 MCHC (test code = 786-4) 32.3 g/dL 31.2-35.0 RDW-SD (test code = 34628-3) 47.8 fL 38.5-51.6 RDW-CV (test code = 788-0) 16.4 % 12.1-15.4 H PLT (test code = 777-3) 198 See_Comment [Automated Reframed.tva ge] The system which generated this result transmitted reference range: 150 - 328 10*3/?L. The reference range was not used to interpret this result as normal/abnormal. MPV (test code = 42723-9) 10.4 fL 9.8-13.0 NRBC/100 WBC (test code = 7220826375) 0.0 See_Comment [Automated [employer] ssage] The system which generated this result transmitted reference range: 0.0 - 10.0 /100 WBCs. The reference range was not used to interpret this result as normal/abnormal. NRBC x10^3 (test code = 9503179181) See_Comment [Automated Reframed.tva ge] The system which generated this result transmitted reference range: 10*3/?L. The reference range was not used to interpret this result as normal/abnormal. GRAN MAT (NEUT) % (test code = 770-8) 59.3 % IMM GRAN % (test code = 8588808123) 0.30 % LYMPH % (test code = 736-9) 27.8 % MONO % (test code = 5905-5) 10.5 % EOS % (test code = 713-8) 1.8 % BASO % (test code = 706-2) 0.3 % GRAN MAT x10^3(ANC) (test code = 8001530443) 3.67 10*3/uL 1.99-6.95 IMM GRAN x10^3 (test code = 4314617413) 0.00-0.06 LYMPH x10^3 (test code = 731-0) 1.72 10*3/uL 1.09-3.23 MONO x10^3 (test code = 742-7) 0.65 10*3/uL 0.36-1.02 EOS x10^3 (test code = 711-2) 0.11 10*3/uL 0.06-0.53 BASO x10^3 (test code = 704-7) 0.01-0.09 Lab Interpretation (test code = 86852-9) Abnormal [facility] GLUCOSE (AUTOMATED)2022-06-09 23:04:10* Test Item Value Reference Range Interpretation Comme nts POCT GLU (test code = 1183468070) 219 mg/dL 70-110 H Lab Interpretation (test cod e = 94754-7) Abnormal [facility] GLUCOSE (AUTOMATED)2022-06-09 18:07:54* Test Item Value Reference Range Interpretation Comme nts POCT GLU (test code = 0375219159) 123 mg/dL 70-110 H Lab Interpretation (test cod e = 29988-5) Abnormal [facility] GLUCOSE (AUTOMATED)2022-06-09 13:54:05* Test Item Value Reference Range Interpretation Comme nts POCT GLU (test code = 2230575421) 99 mg/dL 70-110 Lab Interpretation (test cod e = 86658-0) Normal [facility] GLUCOSE (AUTOMATED)2022-06-09 03:02:13* Test Item Value Reference Range Interpretation Comme nts POCT GLU (test code = 2485275266) 102 mg/dL 70-110 Lab Interpretation (test cod e = 24466-3) Normal [facility] GLUCOSE (AUTOMATED)2022-06-08 22:57:07* Test Item Value Reference Range Interpretation Comme nts POCT GLU (test code = 4970400747) 101 mg/dL 70-110 Lab Interpretation (test cod e = 16071-5) Normal [facility] GLUCOSE (AUTOMATED)2022-06-08 17:36:44* Test Item Value Reference Range Interpretation Comme nts POCT GLU (test code = 7521117446) 103 mg/dL 70-110 Lab Interpretation (test cod e = 21699-9) Normal [facility] GLUCOSE (AUTOMATED)2022-06-08 13:42:38* Test Item Value Reference Range Interpretation Comme nts POCT GLU (test code = 4681897561) 112 mg/dL 70-110 H Lab Interpretation (test cod e = 81218-2) Abnormal [facility] GLUCOSE (AUTOMATED)2022-06-08 01:27:29* Test Item Value Reference Range Interpretation Comme nts POCT GLU (test code = 3650166091) 117 mg/dL 70-110 H Lab Interpretation (test cod e = 06995-7) Abnormal [facility] GLUCOSE (AUTOMATED)2022-06-07 22:01:24* Test Item Value Reference Range Interpretation Comme nts POCT GLU (test code = 2171297517) 120 mg/dL 70-110 H Lab Interpretation (test cod e = 49305-6) Abnormal [facility] GLUCOSE (AUTOMATED)2022-06-07 16:41:29* Test Item Value Reference Range Interpretation Comme nts POCT GLU (test code = 5521835664) 115 mg/dL 70-110 H Lab Interpretation (test cod e = 65586-3) Abnormal [facility] GLUCOSE (AUTOMATED)2022-06-07 12:55:27* Test Item Value Reference Range Interpretation Comme nts POCT GLU (test code = 0419210877) 113 mg/dL 70-110 H Lab Interpretation (test cod e = 51883-2) Abnormal [facility] GLUCOSE (AUTOMATED)2022-06-06 21:33:33* Test Item Value Reference Range Interpretation Comme nts POCT GLU (test code = 2625798472) 108 mg/dL 70-110 Lab Interpretation (test cod e = 41968-6) Normal [facility] GLUCOSE (AUTOMATED)2022-06-06 17:00:26* Test Item Value Reference Range Interpretation Comme nts POCT GLU (test code = 8709832239) 129 mg/dL 70-110 H Lab Interpretation (test cod e = 56671-3) [facility]normal [facility] [id number] 16:05:22* Test Item Value Reference Range Interpretation Comme nts JOCELINE AM (test code = 6689467235) 13.2 ug/dL 4.5-23.0 JACOB (test code = JACOB) Biotin has been reported to cause a positive bias, interpret results relative to patient's use of biotin. Lab Interpretation (test code = 27004-4) [facility]2022-06-06 13:07:51* Test Item Value Reference Range Interpretation Comme nts POCT GLU (test code = 0114870271) 113 mg/dL 70-110 H Lab Interpretation (test cod e = 20441-1) Abnormal [facility] STIMULATING [id number] 10:50:46 * Test Item Value Reference Range Interpretation Comme nts TSH (test code = 9688857333) See_Comment [Automated messa ge] The system which generated this result transmitted reference range: 0.45 - 4.70 mIU/L. The reference range was not used to interpret this result as normal/abnormal. Lab Interpretation (test code = 26566-4) Normal [facility] [id number] 10:36:44* Test Item Value Reference Range Interpretation Comme nts FREE T4 (test code = 8657120344) See_Comment [Automated messa ge] The system which generated this result transmitted reference range: 0.78 - 2.20 ng/dL:. The reference range was not used to interpret this result as normal/abnormal. Lab Interpretation (test code = 66810-8) Normal [facility] Metabolic Panel (NA, K, CL, CO2, GLUCOSE, BUN, CREATININE, CA)2022-06-06 10:21:23* Test Item Value Reference Range Interpretation Comme nts NA (test code = 7602282637) 137 mmol/L 135-145 K (test code = 2394700249) 3.9 mmol/L 3.5-5.0 CL (test code = 2818253835) 93 mmol/L 98-108 L CO2 TOTAL (test code = 2966053882) 31 mmol/L 23-31 AGAP (test code = 7620396024) 2-16 BUN (test code = 3912028697) 51 mg/dL 7-23 H GLUCOSE (test code = 5658401383) 115 mg/dL 70-110 H CREATININE (test code = 4168540229) 2.18 mg/dL 0.60-1.25 H CALCIUM (test code = 0715771635) 10.0 mg/dL 8.6-10.6 eGFR (test code = 5271808136) mL/min/1.73m2 JACOB (test code = JACOB) Association of [...] or abnormalities in imaging tests). Lab Interpretation (test code = 26948-4) [facility]normal [facility] (A1C)2022-06-06 09:42:08* Test Item Value Reference Range Interpretation Comme nts HGB A1C (test code = 4548-4) 6.5 % 4.0-5.7 H JACOB (test code = JACOB) Reference RangesNormal: <5.7%Prediabetes: 5.7 - 6.4%Diabetes: > 6.5% Lab Interpretation (test code = 05128-0) Abnormal [facility] with [id number] 09:12:15* Test Item Value Reference Range Interpretation Comme nts WBC (test code = 6690-2) See_Comment [Automated messa ge] The system which generated this result transmitted reference range: 4.20 - 10.70 10*3/?L. The reference range was not used to interpret this result as normal/abnormal. RBC (test code = 789-8) See_Comment H [Automated messa ge] The system which generated this result transmitted reference range: 4.26 - 5.52 10*6/?L. The reference range was not used to interpret this result as normal/abnormal. HGB (test code = 718-7) 15.5 g/dL 12.2-16.4 HCT (test code = 4544-3) 47.5 % 38.4-49.3 MCV (test code = 787-2) 76.1 fL 81.7-95.6 L MCH (test code = 785-6) 24.8 pg 26.1-32.7 L MCHC (test code = 786-4) 32.6 g/dL 31.2-35.0 RDW-SD (test code = 25644-6) 42.9 fL 38.5-51.6 RDW-CV (test code = 788-0) 16.0 % 12.1-15.4 H PLT (test code = 777-3) See_Comment [Automated messa ge] The system which generated this result transmitted reference range: 150 - 328 10*3/?L. The reference range was not used to interpret this result as normal/abnormal. MPV (test code = 54363-9) 10.9 fL 9.8-13.0 NRBC/100 WBC (test code = 2340966740) See_Comment [Automated [employer] ssage] The system which generated this result transmitted reference range: 0.0 - 10.0 /100 WBCs. The reference range was not used to interpret this result as normal/abnormal. NRBC x10^3 (test code = 2197606927) See_Comment [Automated messa ge] The system which generated this result transmitted reference range: 10*3/?L. The reference range was not used to interpret this result as normal/abnormal. GRAN MAT (NEUT) % (test code = 770-8) 43.8 % IMM GRAN % (test code = 0318254107) 0.20 % LYMPH % (test code = 736-9) 40.2 % MONO % (test code = 5905-5) 14.4 % EOS % (test code = 713-8) 1.2 % BASO % (test code = 706-2) 0.2 % GRAN MAT x10^3(ANC) (test code = 5640813467) 2.26 10*3/uL 1.99-6.95 IMM GRAN x10^3 (test code = 7320630463) 0.00-0.06 LYMPH x10^3 (test code = 731-0) 2.07 10*3/uL 1.09-3.23 MONO x10^3 (test code = 742-7) 0.74 10*3/uL 0.36-1.02 EOS x10^3 (test code = 711-2) 0.06 10*3/uL 0.06-0.53 BASO x10^3 (test code = 704-7) 0.01-0.09 Lab Interpretation (test code = 97791-6) Abnormal [facility] [id number] 22:42:16* Test Item Value Reference Range Interpretation Comments TROPONIN I (test code = 0553987665) 0.048 ng/mL See_Comment H [Automated message] The system which generated this result transmitted reference range: <=0.034. The reference range was not used to interpret this result as normal/abnormal. JACOB (test code = JACOB) Reference (Normal) [...] patient's use of biotin. Lab Interpretation (test code = 66961-6) Abnormal [facility]. METABOLIC PANEL (88804)2022-06-05 21:40:24* Test Item Value Reference Range Interpretation Comme nts NA (test code = 2303340428) 136 mmol/L 135-145 K (test code = 6271596495) 4.2 mmol/L 3.5-5.0 CL (test code = 3439616420) 93 mmol/L 98-108 L CO2 TOTAL (test code = 2861011564) 29 mmol/L 23-31 AGAP (test code = 5306743031) 2-16 BUN (test code = 2224531195) 45 mg/dL 7-23 H GLUCOSE (test code = 9412585098) 113 mg/dL 70-110 H CREATININE (test code = 5878910389) 2.31 mg/dL 0.60-1.25 H TOTAL BILI (test code = 0316473056) 1.7 mg/dL 0.1-1.1 H CALCIUM (test code = 3303436764) 9.9 mg/dL 8.6-10.6 T PROTEIN (test code = 9377689757) 8.8 g/dL 6.3-8.2 H ALBUMIN (test code = 9482538332) 4.8 g/dL 3.5-5.0 ALK PHOS (test code = 5719785528) 88 U/L 34-122 ALTv (test code = 1742-6) 21 U/L 5-50 AST(SGOT) (test code = 8561351804) 25 U/L 13-40 eGFR (test code = 3930077490) mL/min/1.73m2 JACOB (test code = JACOB) Association of [...] or abnormalities in imaging tests). Lab Interpretation (test code = 02745-7) [facility]normal [facility] HospitalAMMON[facility], [id number] 21:39:03* Test Item Value Reference Range Interpretation Comme nts AMMONIA (test code = 6997120410) 13 umol/L 9-33 Lab Interpretation (test cod e = 82699-4) Normal [facility] HospitalPROT[facility] / [id number] 21:38:01* Test Item Value Reference Range Interpretation Comme nts PROTIME PATIENT (test code = 5964-2) See_Comment [[employer]] The system which generated this result transmitted reference range: 12.0 - 14.7 Seconds. The reference range was not used to interpret this result as normal/abnormal. INR (test code = 6301-6) Normal INR <1.1; Warfarin Therapeutic range 2.0 to 3.0 or 2.5 to 3.5, depending upon the indications. Lab Interpretation (test code = 68117-8) Normal [facility] WITH [id number] 21:34:23* Test Item Value Reference Range Interpretation Comme nts WBC (test code = 6690-2) See_Comment [Automated messa ge] The system which generated this result transmitted reference range: 4.20 - 10.70 10*3/?L. The reference range was not used to interpret this result as normal/abnormal. RBC (test code = 789-8) See_Comment H [Automated messa ge] The system which generated this result transmitted reference range: 4.26 - 5.52 10*6/?L. The reference range was not used to interpret this result as normal/abnormal. HGB (test code = 718-7) 15.7 g/dL 12.2-16.4 HCT (test code = 4544-3) 48.4 % 38.4-49.3 MCV (test code = 787-2) 76.2 fL 81.7-95.6 L MCH (test code = 785-6) 24.7 pg 26.1-32.7 L MCHC (test code = 786-4) 32.4 g/dL 31.2-35.0 RDW-SD (test code = 83518-9) 43.6 fL 38.5-51.6 RDW-CV (test code = 788-0) 17.4 % 12.1-15.4 H PLT (test code = 777-3) See_Comment [Automated Reframed.tva ge] The system which generated this result transmitted reference range: 150 - 328 10*3/?L. The reference range was not used to interpret this result as normal/abnormal. MPV (test code = 98487-5) 10.3 fL 9.8-13.0 NRBC/100 WBC (test code = 9934845985) See_Comment [Automated [employer] ssage] The system which generated this result transmitted reference range: 0.0 - 10.0 /100 WBCs. The reference range was not used to interpret this result as normal/abnormal. NRBC x10^3 (test code = 8703653818) See_Comment [Automated Reframed.tva ge] The system which generated this result transmitted reference range: 10*3/?L. The reference range was not used to interpret this result as normal/abnormal. GRAN MAT (NEUT) % (test code = 770-8) 46.9 % IMM GRAN % (test code = 6709503056) 0.20 % LYMPH % (test code = 736-9) 38.8 % MONO % (test code = 5905-5) 12.9 % EOS % (test code = 713-8) 0.9 % BASO % (test code = 706-2) 0.3 % GRAN MAT x10^3(ANC) (test code = 9431609222) 3.01 10*3/uL 1.99-6.95 IMM GRAN x10^3 (test code = 7600108697) 0.00-0.06 LYMPH x10^3 (test code = 731-0) 2.49 10*3/uL 1.09-3.23 MONO x10^3 (test code = 742-7) 0.83 10*3/uL 0.36-1.02 EOS x10^3 (test code = 711-2) 0.06 10*3/uL 0.06-0.53 BASO x10^3 (test code = 704-7) 0.01-0.09 Lab Interpretation (test code = 41913-2) Abnormal [facility] GLUCOSE (AUTOMATED)2022-06-03 13:23:16* Test Item Value Reference Range Interpretation Comme nts POCT GLU (test code = 8905130499) 113 mg/dL 70-110 H Lab Interpretation (test cod e = 80986-5) Abnormal [facility] GLUCOSE (AUTOMATED)2022-06-02 22:20:49* Test Item Value Reference Range Interpretation Comme nts POCT GLU (test code = 3992413298) 105 mg/dL 70-110 Lab Interpretation (test cod e = 77433-6) Normal [facility] GLUCOSE (AUTOMATED)2022-06-02 17:14:01* Test Item Value Reference Range Interpretation Comme nts POCT GLU (test code = 9976626380) 101 mg/dL 70-110 Lab Interpretation (test cod e = 94609-8) Normal [facility] GLUCOSE (AUTOMATED)2022-06-02 13:06:11* Test Item Value Reference Range Interpretation Comme nts POCT GLU (test code = 7799288387) 91 mg/dL 70-110 Lab Interpretation (test cod e = 88125-6) Normal [facility] GLUCOSE (AUTOMATED)2022-06-02 09:46:37* Test Item Value Reference Range Interpretation Comme nts POCT GLU (test code = 2234400134) 88 mg/dL 70-110 Lab Interpretation (test cod e = 61179-2) Normal [facility] GLUCOSE (AUTOMATED)2022-06-02 01:58:12* Test Item Value Reference Range Interpretation Comme nts POCT GLU (test code = 9596906673) 97 mg/dL 70-110 Lab Interpretation (test cod e = 46915-3) Normal [facility] GLUCOSE (AUTOMATED)2022-06-01 21:49:40* Test Item Value Reference Range Interpretation Comme nts POCT GLU (test code = 5136048244) 83 mg/dL 70-110 Lab Interpretation (test cod e = 09118-9) Normal [facility] GLUCOSE (AUTOMATED)2022-05-15 16:25:57* Test Item Value Reference Range Interpretation Comme nts POCT GLU (test code = 6893038123) 136 mg/dL 70-110 H Notified Provide r Lab Interpretation (test code = 07710-6) Abnormal [facility] GLUCOSE (AUTOMATED)2022-05-15 13:11:35* Test Item Value Reference Range Interpretation Comme nts POCT GLU (test code = 4165421939) 108 mg/dL 70-110 Notified Provide r Lab Interpretation (test code = 17077-4) Normal [facility] METABOLIC PANEL (NA, K, CL, CO2, GLUCOSE, BUN, CREATININE, CA)2022-05-15 10:31:36* Test Item Value Reference Range Interpretation Comme nts NA (test code = 9505125928) 138 mmol/L 135-145 K (test code = 7824287842) 4.0 mmol/L 3.5-5 CL (test code = 5083308189) 100 mmol/L 98-108 CO2 TOTAL (test code = 2414016303) 28 mmol/L 23-31 AGAP (test code = 2619554709) 2-16 BUN (test code = 4970320951) 43 mg/dL 7-23 H GLUCOSE (test code = 4857859139) 120 mg/dL 70-110 H CREATININE (test code = 0255724842) 1.52 mg/dL 0.6-1.25 H CALCIUM (test code = 5182204416) 8.6 mg/dL 8.6-10.6 eGFR (test code = 5079505639) mL/min/1.73m2 JACOB (test code = JACOB) Association of [...] or abnormalities in imaging tests). Lab Interpretation (test code = 14018-0) [facility]:31:36* Test Item Value Reference Range Interpretation Comme nts MAGNESIUM (test code = 6315348886) 2.4 mg/dL 1.7-2.4 Lab Interpretation (test cod e = 59493-2) [facility] [id number] 10:08:36* Test Item Value Reference Range Interpretation Comme nts WBC (test code = 6690-2) See_Comment [Automated Reframed.tva [employer]] The system which generated this result transmitted reference range: 4.20 - 10.70 10*3/?L. The reference range was not used to interpret this result as normal/abnormal. RBC (test code = 789-8) See_Comment [Automated messa ge] The system which generated this result transmitted reference range: 4.26 - 5.52 10*6/?L. The reference range was not used to interpret this result as normal/abnormal. HGB (test code = 718-7) 12.9 g/dL 12.2-16.4 HCT (test code = 4544-3) 40.2 % 38.4-49.3 MCV (test code = 787-2) 79.3 fL 81.7-95.6 L MCH (test code = 785-6) 25.4 pg 26.1-32.7 L MCHC (test code = 786-4) 32.1 g/dL 31.2-35 RDW-SD (test code = 51695-2) 45.1 fL 38.5-51.6 RDW-CV (test code = 788-0) 15.9 % 12.1-15.4 H PLT (test code = 777-3) See_Comment [Automated messa ge] The system which generated this result transmitted reference range: 150 - 328 10*3/?L. The reference range was not used to interpret this result as normal/abnormal. MPV (test code = 55277-5) 10.6 fL 9.8-13 NRBC/100 WBC (test code = 9472855852) See_Comment [Automated [employer] ssage] The system which generated this result transmitted reference range: 0.0 - 10.0 /100 WBCs. The reference range was not used to interpret this result as normal/abnormal. NRBC x10^3 (test code = 5704491574) See_Comment [Automated messa ge] The system which generated this result transmitted reference range: 10*3/?L. The reference range was not used to interpret this result as normal/abnormal. GRAN MAT (NEUT) % (test code = 770-8) 65.9 % IMM GRAN % (test code = 7599903279) 0.30 % LYMPH % (test code = 736-9) 23.2 % MONO % (test code = 5905-5) 10.1 % EOS % (test code = 713-8) 0.3 % BASO % (test code = 706-2) 0.2 % GRAN MAT x10^3(ANC) (test code = 0666315397) 5.68 10*3/uL 1.99-6.95 IMM GRAN x10^3 (test code = 8318644261) 0.03 10*3/uL 0-0.06 LYMPH x10^3 (test code = 731-0) 2.00 10*3/uL 1.09-3.23 MONO x10^3 (test code = 742-7) 0.87 10*3/uL 0.36-1.02 EOS x10^3 (test code = 711-2) 0.03 10*3/uL 0.06-0.53 L BASO x10^3 (test code = 704-7) 0.01-0.09 Lab Interpretation (test code = 43805-0) Abnormal [facility] GLUCOSE (AUTOMATED)2022-05-15 01:35:43* Test Item Value Reference Range Interpretation Comme nts POCT GLU (test code = 5843248003) 121 mg/dL 70-110 H Lab Interpretation (test cod e = 52035-8) Abnormal [facility] GLUCOSE (AUTOMATED)2022-05-14 21:31:02* Test Item Value Reference Range Interpretation Comme nts POCT GLU (test code = 3869022451) 134 mg/dL 70-110 H Lab Interpretation (test cod e = 45072-1) Abnormal [facility] GLUCOSE (AUTOMATED)2022-05-14 13:18:03* Test Item Value Reference Range Interpretation Comme nts POCT GLU (test code = 7978228969) 134 mg/dL 70-110 H Lab Interpretation (test cod e = 94676-6) Abnormal [facility] GLUCOSE (AUTOMATED)2022-05-14 00:37:27* Test Item Value Reference Range Interpretation Comme nts POCT GLU (test code = 8322122587) 138 mg/dL 70-110 H Lab Interpretation (test cod e = 90159-3) [facility] Drip[facility]2022-05-13 21:44:37* Test Item Value Reference Range Interpretation Comme nts APTT Patient (test code = 3173-2) See_Comment H [Automated messa ge] The system which generated this result transmitted reference range: 26 - 36 Seconds. The reference range was not used to interpret this result as normal/abnormal. Lab Interpretation (test code = 98431-8) Abnormal [facility] GLUCOSE (AUTOMATED)2022-05-13 21:23:02* Test Item Value Reference Range Interpretation Comme nts POCT GLU (test code = 1886858897) 129 mg/dL 70-110 H Lab Interpretation (test cod e = 53919-5) Abnormal [facility] GLUCOSE (AUTOMATED)2022-05-13 20:36:50* Test Item Value Reference Range Interpretation Comme nts POCT GLU (test code = 8198108020) 107 mg/dL 70-110 Lab Interpretation (test cod e = 13220-0) Normal [facility] GLUCOSE (AUTOMATED)2022-05-13 20:35:27* Test Item Value Reference Range Interpretation Comme nts POCT GLU (test code = 0567608110) 145 mg/dL 70-110 H Lab Interpretation (test cod e = 48504-9) [facility]normal [facility]-13 19:45:15* Test Item Value Reference Range Interpretation Comme nts LVIDD (test code = 8740724736) 6.10 cm Interventricular Septum Diastolic Thickness by 2D (test code = 1418776) 1.71 cm PW (test code = 2993701371) 1.64 cm 0.6-1.1 LVIDS (test code = 2258728085) 5.50 cm LA size (test code = 4939268577) 3.8 cm LVPWD (test code = 3316773596) 1.64 cm AV LVOT peak gradient (test code = 4623060377) mmHg E wave decelartion time (test code = 7604085621) 0.10 s LVOT diameter (test code = 3414039289) 2.5 cm LVOT peak VTI (test code = 2088170692) 10.5 cm LVOT stroke volume (test code = 0087913517) 52.60 cm3 Triscuspid Valve Regurgitation Peak Gradient (test code = 2290948284) mmHg MV Peak E Sommer (test code = 0846642713) 98.1 cm/s IVS (test code = 8417545693) 1.71 cm Aortic root (test code = 3235487248) 3.7 cm Tapse (test code = 7278846456) 1.52 cm EF - 2D (test code = 97394294) 21.20 % Left Ventricular End Diastolic Volume by Teichholz Method (test code = 3233644) 189.2 mL Left Ventricular End Systolic Volume by Teichholz Method (test code = 8805034) 149.1 mL Ao root annulus (test code = 7075514633) 3.7 cm FS (test code = 4931988333) 10 % LVOT mn grad (test code = 0281755740) mmHg TR Peak Sommer (test code = 0160917215) 283.7 cm/s MV E/e' septal (test code = 0756077019) 4.5 cm/s LVOT area (test code = 3140901432) 5.00 cm2 LVOT peak sommer (test code = 2936075067) 78.8 cm/s BSA (test code = 3759384959) 2.7 m2 Ao root diam (test code = 5784297325) 3.70 cm EF(Teich) (test code = 0212784347) 21.20 % LV V1 mean (test code = 3816014478) 52.50 cm/s MV Prop V (test code = 8429385640) 28.90 cm/s Height (test code = 3383287780) in Weight (test code = 3648091610) lbs Systolic BP (test code = 4072411124) mmHg Diastolic BP (test code = 1469715612) mmHg Heart Rate (test code = 0408688883) bpm LV Diastolic Volume (BP) (test code = 3017889105) 285.5 mL A2C EF (test code = 3077645524) 12.80 % EF(sp2-el) (test code = 4966158649) 12.90 % SV(MOD-sp2) (test code = 2728108608) 40.90 mL A4C EF (test code = 4954701058) 16.30 % EF(MOD-bp) (test code = 3501856325) 16.80 % EF(sp4-el) (test code = 8481043755) 20.60 % LV Systolic Volume (BP) (test code = 3770512774) 237.7 mL SV(MOD-bp) (test code = 4754510342) 47.90 mL SV(MOD-sp4) (test code = 2114968349) 39.70 mL SV(sp4-el) (test code = 7000151143) 55.90 mL EF (test code = 7317820890) Left Ventricular Stroke Volume by 2-D Biplane-MOD (test code = 1705674) 47.9 mL LV Diastolic Volume Index (BP) (test code = 9486242511) 105.7 mL/m2 LV Systolic Volume Index (BP) (test code = 6113811276) 88.0 mL/m2 Radiology Study observation (narrative) (test code = 23482-8) JACOB (test code = JACOB) ?Left?Ventricle: Left [...] enhancing agent used. Patient exhibited sinus rhythm. [facility] [id number] 15:40:52* Test Item Value Reference Range Interpretation Comme [facility] APTT Patient (test code = 3173-2) See_Comment H [Automated [employer]Mission] The system which generated this result transmitted reference range: 26 - 36 Seconds. The reference range was not used to interpret this result as normal/abnormal. Lab Interpretation (test code = 85285-5) [facility]normal [facility]2022-[facility]-13 02:37:38* Test Item Value Reference Range Interpretation Comme [facility] POCT GLU (test code = 1945038681) 104 mg/dL 70-110 Lab Interpretation (test cod e = 55182-9) Normal [facility] [id number] 23:05:27* Test Item Value Reference Range Interpretation Comments TROPONIN I (test code = 0201748996) 1.060 ng/mL See_Comment H [Automated message] The system which generated this result transmitted reference range: <=0.034. The reference range was not used to interpret this result as normal/abnormal. JACOB (test code = JACOB) Reference (Normal) [...] patient's use of biotin. Lab Interpretation (test code = 28687-7) Abnormal [facility] GLUCOSE (AUTOMATED)2022-05-12 20:15:15* Test Item Value Reference Range Interpretation Comme nts POCT GLU (test code = 2591795569) 105 mg/dL 70-110 Notified Provide r Lab Interpretation (test code = 00477-0) Normal [facility] [id number] 20:09:56* Test Item Value Reference Range Interpretation Comments TROPONIN I (test code = 8376800513) 1.100 ng/mL See_Comment H [Automated message] The system which generated this result transmitted reference range: <=0.034. The reference range was not used to interpret this result as normal/abnormal. JACOB (test code = JACOB) Reference (Normal) [...] patient's use of biotin. Lab Interpretation (test code = 10154-3) Abnormal [facility] GLUCOSE (AUTOMATED)2022-05-12 17:17:06* Test Item Value Reference Range Interpretation Comme nts POCT GLU (test code = 9147775039) 111 mg/dL 70-110 H Notified Provide r Lab Interpretation (test code = 76641-7) Abnormal [facility] GLUCOSE (AUTOMATED)2022-05-12 13:08:44* Test Item Value Reference Range Interpretation Comme nts POCT GLU (test code = 3520002558) 97 mg/dL 70-110 Lab Interpretation (test cod e = 86214-4) Normal [facility] GLUCOSE (AUTOMATED)2022-05-12 01:01:49* Test Item Value Reference Range Interpretation Comme nts POCT GLU (test code = 3969509356) 92 mg/dL 70-110 Lab Interpretation (test cod e = 31144-3) Normal [facility] [id number] 22:46:37* Test Item Value Reference Range Interpretation Comments TROPONIN I (test code = 2764702010) 0.046 ng/mL See_Comment H [Automated message] The system which generated this result transmitted reference range: <=0.034. The reference range was not used to interpret this result as normal/abnormal. JACOB (test code = JACOB) Reference (Normal) [...] patient's use of biotin. Lab Interpretation (test code = 57237-7) Abnormal [facility] GLUCOSE (AUTOMATED)2022-05-11 21:13:58* Test Item Value Reference Range Interpretation Comme nts POCT GLU (test code = 9404258375) 106 mg/dL 70-110 Notified Provide r Lab Interpretation (test code = 21344-2) Normal [facility] GLUCOSE (AUTOMATED)2022-05-11 18:00:21* Test Item Value Reference Range Interpretation Comme nts POCT GLU (test code = 2350808709) 102 mg/dL 70-110 Notified Provide r Lab Interpretation (test code = 53422-2) Normal [facility] [id number] 17:18:39* Test Item Value Reference Range Interpretation Comments TROPONIN I (test code = 5038855635) 0.051 ng/mL See_Comment H [Automated message] The system which generated this result transmitted reference range: <=0.034. The reference range was not used to interpret this result as normal/abnormal. JACOB (test code = JACOB) Reference (Normal) [...] patient's use of biotin. Lab Interpretation (test code = 68900-9) Abnormal [facility] (PT[facility] / [id number] 17:09:02 * Test Item Value Reference Range Interpretation Comme [facility] PROTIME PATIENT (test code = 5964-2) See_Comment H [Automated [employer]Mission] The system which generated this result transmitted reference range: 10.1 - 12.6 Seconds. The reference range was not used to interpret this result as normal/abnormal. INR (test code = 6301-6) Normal INR <1.1; Warfarin Therapeutic range 2.0 to 3.0 or 2.5 to 3.5, depending upon the indications. Lab Interpretation (test code = 27101-9) [facility]normal [facility] 17:09:02* Test Item Value Reference Range Interpretation Comme [facility] APTT Patient (test code = 3173-2) See_Comment [[employer]] The system which generated this result transmitted reference range: 26 - 36 Seconds. The reference range was not used to interpret this result as normal/abnormal. Lab Interpretation (test code = 24521-7) Normal [facility] HospitalLactic Acid Whole [id number] 17:00:23* Test Item Value Reference Range Interpretation Comme [facility] LACTIC ACID (test code = 8782419706) 1.15 mmol/L 0.5-2.2 Lab Interpretation (test cod e = 04762-8) Normal [facility])2022-05-11 14:55:35* Test Item Value Reference Range Interpretation Comme [facility] POCT GLU (test code = 9771396291) 99 mg/dL 70-110 Notified Provide r Lab Interpretation (test code = 53128-2) Normal [facility] HospitalTroponin [id number] 03:41:52* Test Item Value Reference Range Interpretation Comments TROPONIN I (test code = 7736710838) 0.054 ng/mL See_Comment H [Automated message] The system which generated this result transmitted reference range: <=0.034. The reference range was not used to interpret this result as normal/abnormal. JACOB (test code = JACOB) Reference (Normal) [...] patient's use of biotin. Lab Interpretation (test code = 65306-8) Abnormal [facility] HospitalGlycosylated Hemoglobin (A1C)2022-05-06 01:58:11* Test Item Value Reference Range Interpretation Comme [facility] HGB A1C (test code = 4548-4) 6.5 % 4-5.7 H JACOB (test code = JACOB) Reference RangesNormal: <5.7%Prediabetes: 5.7 - 6.4%Diabetes: > 6.5% Lab Interpretation (test code = 50045-8) Abnormal [facility] HospitalThyroid Stimulating Hormone (TSH)2022-05-06 01:48:20* Test Item Value Reference Range Interpretation Comme [facility] TSH (test code = 2800077752) See_Comment Biotin has been reported to cause a negative bias, interpret results relative to patient's use of biotin. [Automated message] The system which generated this result transmitted reference range: 0.45 - 4.70 mIU/L. The reference range was not used to interpret this result as normal/abnormal. Lab Interpretation (test code = 84176-1) Normal [facility]N-TERMINAL [id number]-[id number] 20:51:47* Test Item Value Reference Range Interpretation Comme nts NT-proBNP (test code = 3869008288) 4320 pg/mL See_Comment H [Automated message] The system which generated this result transmitted reference range: <=125. The reference range was not used to interpret this result as normal/abnormal. JACOB (test code = JACOB) Biotin has been reported to cause a negative bias, interpret results relative to patient's use of biotin. Lab Interpretation (test code = 28128-4) Abnormal [facility]TR[facility] [id number] 20:29:07* Test Item Value Reference Range Interpretation Comments TROPONIN I (test code = 3717188072) 0.058 ng/mL See_Comment H [Automated message] The system which generated this result transmitted reference range: <=0.034. The reference range was not used to interpret this result as normal/abnormal. JACOB (test code = JACOB) Reference (Normal) [...] patient's use of biotin. Lab Interpretation (test code = 17921-2) [facility]normal [facility]2022-[facility] 20:17:44* Test Item Value Reference Range Interpretation Comme nts MAGNESIUM (test code = 8665623108) 1.8 mg/dL 1.7-2.4 Lab Interpretation (test cod e = 45280-8) Normal [facility] HospitalCOMP. METABOLIC PANEL (79383)2022-05-05 20:17:24* Test Item Value Reference Range Interpretation Comme nts NA (test code = 0735331055) 142 mmol/L 135-145 K (test code = 2253085818) 4.1 mmol/L 3.5-5 CL (test code = 9316893576) 108 mmol/L 98-108 CO2 TOTAL (test code = 4624688294) 22 mmol/L 23-31 L AGAP (test code = 0195720635) 2-16 BUN (test code = 6979782826) 22 mg/dL 7-23 GLUCOSE (test code = 6298262465) 107 mg/dL 70-110 CREATININE (test code = 0969148383) 1.30 mg/dL 0.6-1.25 H TOTAL BILI (test code = 4190771073) 0.6 mg/dL 0.1-1.1 CALCIUM (test code = 4981265603) 9.3 mg/dL 8.6-10.6 T PROTEIN (test code = 1914209832) 7.3 g/dL 6.3-8.2 ALBUMIN (test code = 1708446313) 4.0 g/dL 3.5-5 ALK PHOS (test code = 5508349118) 74 U/L 34-122 ALTv (test code = 1742-6) 20 U/L 5-50 AST(SGOT) (test code = 4086127182) 28 U/L 13-40 eGFR (test code = 8204545332) mL/min/1.73m2 JACOB (test code = JACOB) Association of [...] or abnormalities in imaging tests). Lab Interpretation (test code = 98663-9) Abnormal [facility] WITH [id number] 20:17:03* Test Item Value Reference Range Interpretation Comme nts WBC (test code = 6690-2) See_Comment [Automated [employer]Mission] The system which generated this result transmitted reference range: 4.20 - 10.70 10*3/?L. The reference range was not used to interpret this result as normal/abnormal. RBC (test code = 789-8) See_Comment [Automated [employer]Mission] The system which generated this result transmitted reference range: 4.26 - 5.52 10*6/?L. The reference range was not used to interpret this result as normal/abnormal. HGB (test code = 718-7) 13.0 g/dL 12.2-16.4 HCT (test code = 4544-3) 40.8 % 38.4-49.3 MCV (test code = 787-2) 79.7 fL 81.7-95.6 L MCH (test code = 785-6) 25.4 pg 26.1-32.7 L MCHC (test code = 786-4) 31.9 g/dL 31.2-35 RDW-SD (test code = 56716-3) 44.8 fL 38.5-51.6 RDW-CV (test code = 788-0) 15.5 % 12.1-15.4 H PLT (test code = 777-3) See_Comment [Automated [employer]Mission] The system which generated this result transmitted reference range: 150 - 328 10*3/?L. The reference range was not used to interpret this result as normal/abnormal. MPV (test code = 88190-3) 10.7 fL 9.8-13 NRBC/100 WBC (test code = 2462609665) See_Comment [Automated me ssage] The system which generated this result transmitted reference range: 0.0 - 10.0 /100 WBCs. The reference range was not used to interpret this result as normal/abnormal. NRBC x10^3 (test code = 7163326869) See_Comment [Automated messa ge] The system which generated this result transmitted reference range: 10*3/?L. The reference range was not used to interpret this result as normal/abnormal. GRAN MAT (NEUT) % (test code = 770-8) 52.8 % IMM GRAN % (test code = 3064041457) 0.20 % LYMPH % (test code = 736-9) 33.6 % MONO % (test code = 5905-5) 11.4 % EOS % (test code = 713-8) 1.6 % BASO % (test code = 706-2) 0.4 % GRAN MAT x10^3(ANC) (test code = 1028753087) 2.95 10*3/uL 1.99-6.95 IMM GRAN x10^3 (test code = 3006670689) 0-0.06 LYMPH x10^3 (test code = 731-0) 1.88 10*3/uL 1.09-3.23 MONO x10^3 (test code = 742-7) 0.64 10*3/uL 0.36-1.02 EOS x10^3 (test code = 711-2) 0.09 10*3/uL 0.06-0.53 BASO x10^3 (test code = 704-7) 0.01-0.09 Lab Interpretation (test code = 87744-5) Abnormal [facility]AL [id number] 12:18:51* Test Item Value Reference Range Interpretation Comme nts NT-proBNP (test code = 4442343962) 1400 pg/mL See_Comment H [Automated message] The system which generated this result transmitted reference range: <=125. The reference range was not used to interpret this result as normal/abnormal. JACOB (test code = JACOB) Biotin has been reported to cause a negative bias, interpret results relative to patient's use of biotin. Lab Interpretation (test code = 34979-0) Abnormal [facility] HospitalMagnesium [id number] 12:13:54* Test Item Value Reference Range Interpretation Comme nts MAGNESIUM (test code = 4493556891) 1.9 mg/dL 1.7-2.4 Lab Interpretation (test cod e = 57007-6) Normal [facility] Metabolic Panel (NA, K, CL, CO2, GLUCOSE, BUN, CREATININE, CA)2022-04-30 12:13:34* Test Item Value Reference Range Interpretation Comme nts NA (test code = 2631842179) 138 mmol/L 135-145 K (test code = 2893152781) 4.2 mmol/L 3.5-5 CL (test code = 5555159769) 104 mmol/L 98-108 CO2 TOTAL (test code = 0463246305) 26 mmol/L 23-31 AGAP (test code = 2002401649) 2-16 BUN (test code = 4484492144) 19 mg/dL 7-23 GLUCOSE (test code = 9883018322) 113 mg/dL 70-110 H CREATININE (test code = 1132933910) 1.28 mg/dL 0.6-1.25 H CALCIUM (test code = 4512326121) 8.9 mg/dL 8.6-10.6 eGFR (test code = 0627281701) mL/min/1.73m2 JACOB (test code = JACOB) Association of [...] or abnormalities in imaging tests). Lab Interpretation (test code = 76289-5) Abnormal [facility] GLUCOSE (AUTOMATED)2022-04-30 01:21:02* Test Item Value Reference Range Interpretation Comme nts POCT GLU (test code = 7796782391) 129 mg/dL 70-110 H Lab Interpretation (test cod e = 76756-7) Abnormal [facility] GLUCOSE (AUTOMATED)2022-04-29 22:32:44* Test Item Value Reference Range Interpretation Comme nts POCT GLU (test code = 2009426003) 86 mg/dL 70-110 Lab Interpretation (test cod e = 42826-4) Normal [facility]. METABOLIC PANEL (97950)2022-04-29 17:43:38* Test Item Value Reference Range Interpretation Comme nts NA (test code = 8596158796) 137 mmol/L 135-145 K (test code = 8170696868) 3.9 mmol/L 3.5-5 CL (test code = 6944114498) 106 mmol/L 98-108 CO2 TOTAL (test code = 1357789315) 22 mmol/L 23-31 L AGAP (test code = 6741095557) 2-16 BUN (test code = 6814738161) 17 mg/dL 7-23 GLUCOSE (test code = 1568652237) 103 mg/dL 70-110 CREATININE (test code = 2374675127) 1.18 mg/dL 0.6-1.25 TOTAL BILI (test code = 4096535029) 0.8 mg/dL 0.1-1.1 CALCIUM (test code = 1133436546) 8.9 mg/dL 8.6-10.6 T PROTEIN (test code = 5847078566) 6.9 g/dL 6.3-8.2 ALBUMIN (test code = 1874781571) 3.8 g/dL 3.5-5 ALK PHOS (test code = 7626606128) 65 U/L 34-122 ALTv (test code = 1742-6) 18 U/L 5-50 AST(SGOT) (test code = 7022145741) 25 U/L 13-40 eGFR (test code = 8340094724) mL/min/1.73m2 JACOB (test code = JACOB) Association of [...] or abnormalities in imaging tests). Lab Interpretation (test code = 43801-9) [id number] 17:02:13* Test Item Value Reference Range Interpretation Comments TROPONIN I (test code = 1343226872) 0.045 ng/mL See_Comment H [Automated message] The system which generated this result transmitted reference range: <=0.034. The reference range was not used to interpret this result as normal/abnormal. JACOB (test code = JACOB) Reference (Normal) [...] patient's use of biotin. Lab Interpretation (test code = 48584-5) [facility]normal [facility] [id number] 17:00:29* Test Item Value Reference Range Interpretation Comme nts NT-proBNP (test code = 7484619063) 1770 pg/mL See_Comment H [Automated message] The system which generated this result transmitted reference range: <=125. The reference range was not used to interpret this result as normal/abnormal. JACOB (test code = JACOB) Biotin has been reported to cause a negative bias, interpret results relative to patient's use of biotin. Lab Interpretation (test code = 62814-2) [facility] / [id number] 15:56:43* Test Item Value Reference Range Interpretation Comme nts PROTIME PATIENT (test code = 5964-2) See_Comment [Automated IDMission] The system which generated this result transmitted reference range: 12.0 - 14.7 Seconds. The reference range was not used to interpret this result as normal/abnormal. INR (test code = 6301-6) Normal INR <1.1; Warfarin Therapeutic range 2.0 to 3.0 or 2.5 to 3.5, depending upon the indications. Lab Interpretation (test code = 69161-0) [facility] [id number] 15:48:01* Test Item Value Reference Range Interpretation Comme nts WBC (test code = 6690-2) See_Comment [Automated IDMission] The system which generated this result transmitted reference range: 4.20 - 10.70 10*3/?L. The reference range was not used to interpret this result as normal/abnormal. RBC (test code = 789-8) See_Comment H [Automated messa ge] The system which generated this result transmitted reference range: 4.26 - 5.52 10*6/?L. The reference range was not used to interpret this result as normal/abnormal. HGB (test code = 718-7) 14.6 g/dL 12.2-16.4 HCT (test code = 4544-3) 46.8 % 38.4-49.3 MCV (test code = 787-2) 80.8 fL 81.7-95.6 L MCH (test code = 785-6) 25.2 pg 26.1-32.7 L MCHC (test code = 786-4) 31.2 g/dL 31.2-35 RDW-SD (test code = 52483-9) 45.0 fL 38.5-51.6 RDW-CV (test code = 788-0) 15.5 % 12.1-15.4 H PLT (test code = 777-3) See_Comment [Automated messa ge] The system which generated this result transmitted reference range: 150 - 328 10*3/?L. The reference range was not used to interpret this result as normal/abnormal. MPV (test code = 23291-6) 11.6 fL 9.8-13 NRBC/100 WBC (test code = 7231899396) See_Comment [Automated [employer] ssage] The system which generated this result transmitted reference range: 0.0 - 10.0 /100 WBCs. The reference range was not used to interpret this result as normal/abnormal. NRBC x10^3 (test code = 9372236149) See_Comment [Automated messa ge] The system which generated this result transmitted reference range: 10*3/?L. The reference range was not used to interpret this result as normal/abnormal. GRAN MAT (NEUT) % (test code = 770-8) 40.0 % IMM GRAN % (test code = 3082973533) 0.20 % LYMPH % (test code = 736-9) 47.3 % MONO % (test code = 5905-5) 10.4 % EOS % (test code = 713-8) 1.8 % BASO % (test code = 706-2) 0.3 % GRAN MAT x10^3(ANC) (test code = 3870604853) 2.39 10*3/uL 1.99-6.95 IMM GRAN x10^3 (test code = 3737539738) 0-0.06 LYMPH x10^3 (test code = 731-0) 2.83 10*3/uL 1.09-3.23 MONO x10^3 (test code = 742-7) 0.62 10*3/uL 0.36-1.02 EOS x10^3 (test code = 711-2) 0.11 10*3/uL 0.06-0.53 BASO x10^3 (test code = 704-7) 0.01-0.09 Lab Interpretation (test code = 21011-9) [id number] 12:23:05* Test Item Value Reference Range Interpretation Comments TROPONIN I (test code = 7832808143) 0.037 ng/mL See_Comment H [Automated message] The system which generated this result transmitted reference range: <=0.034. The reference range was not used to interpret this result as normal/abnormal. JACOB (test code = JACOB) Reference (Normal) [...] patient's use of biotin. Lab Interpretation (test code = 61312-6) Abnormal [facility] METABOLIC PANEL (NA, K, CL, CO2, GLUCOSE, BUN, CREATININE, CA)2022-04-23 11:13:03* Test Item Value Reference Range Interpretation Comme nts NA (test code = 3820915007) 140 mmol/L 135-145 K (test code = 8099490873) 3.9 mmol/L 3.5-5 CL (test code = 3410130928) 105 mmol/L 98-108 CO2 TOTAL (test code = 0900997534) 28 mmol/L 23-31 AGAP (test code = 8193780939) 2-16 BUN (test code = 3386751244) 23 mg/dL 7-23 GLUCOSE (test code = 2657261749) 106 mg/dL 70-110 CREATININE (test code = 8610963854) 1.37 mg/dL 0.6-1.25 H CALCIUM (test code = 7062819134) 8.8 mg/dL 8.6-10.6 eGFR (test code = 9119564215) mL/min/1.73m2 JACOB (test code = JACOB) Association of [...] or abnormalities in imaging tests). Lab Interpretation (test code = 26142-9) [facility]22-[facility] 10:33:54* Test Item Value Reference Range Interpretation Comme nts MAGNESIUM (test code = 5780258052) 1.6 mg/dL 1.7-2.4 L Lab Interpretation (test cod e = 22958-5) Abnormal [facility] WITH [id number] 09:54:13* Test Item Value Reference Range Interpretation Comme nts WBC (test code = 6690-2) See_Comment [Automated messa ge] The system which generated this result transmitted reference range: 4.20 - 10.70 10*3/?L. The reference range was not used to interpret this result as normal/abnormal. RBC (test code = 789-8) See_Comment [Automated messa ge] The system which generated this result transmitted reference range: 4.26 - 5.52 10*6/?L. The reference range was not used to interpret this result as normal/abnormal. HGB (test code = 718-7) 12.8 g/dL 12.2-16.4 HCT (test code = 4544-3) 40.7 % 38.4-49.3 MCV (test code = 787-2) 80.8 fL 81.7-95.6 L MCH (test code = 785-6) 25.4 pg 26.1-32.7 L MCHC (test code = 786-4) 31.4 g/dL 31.2-35 RDW-SD (test code = 43561-0) 45.6 fL 38.5-51.6 RDW-CV (test code = 788-0) 15.8 % 12.1-15.4 H PLT (test code = 777-3) See_Comment [Automated messa ge] The system which generated this result transmitted reference range: 150 - 328 10*3/?L. The reference range was not used to interpret this result as normal/abnormal. MPV (test code = 22392-4) 11.5 fL 9.8-13 NRBC/100 WBC (test code = 4896027184) See_Comment [Automated me ssage] The system which generated this result transmitted reference range: 0.0 - 10.0 /100 WBCs. The reference range was not used to interpret this result as normal/abnormal. NRBC x10^3 (test code = 6899011125) See_Comment [Automated messa ge] The system which generated this result transmitted reference range: 10*3/?L. The reference range was not used to interpret this result as normal/abnormal. GRAN MAT (NEUT) % (test code = 770-8) 44.0 % IMM GRAN % (test code = 9778929931) 0.20 % LYMPH % (test code = 736-9) 42.1 % MONO % (test code = 5905-5) 11.1 % EOS % (test code = 713-8) 2.2 % BASO % (test code = 706-2) 0.4 % GRAN MAT x10^3(ANC) (test code = 9627256586) 2.18 10*3/uL 1.99-6.95 IMM GRAN x10^3 (test code = 3680410618) 0-0.06 LYMPH x10^3 (test code = 731-0) 2.09 10*3/uL 1.09-3.23 MONO x10^3 (test code = 742-7) 0.55 10*3/uL 0.36-1.02 EOS x10^3 (test code = 711-2) 0.11 10*3/uL 0.06-0.53 BASO x10^3 (test code = 704-7) 0.01-0.09 Lab Interpretation (test code = 44395-3) Abnormal [facility] [id number] 19:59:21* Test Item Value Reference Range Interpretation Comments TROPONIN I (test code = 5704225863) 0.027 ng/mL See_Comment [Automated message] The system which generated this result transmitted reference range: <=0.034. The reference range was not used to interpret this result as normal/abnormal. JACOB (test code = JACOB) Reference (Normal) [...] patient's use of biotin. Lab Interpretation (test code = 59877-2) Normal [facility] [id number] 19:56:01* Test Item Value Reference Range Interpretation Comme nts NT-proBNP (test code = 9343833463) 887 pg/mL See_Comment H [Automated message] The system which generated this result transmitted reference range: <=125. The reference range was not used to interpret this result as normal/abnormal. JACOB (test code = JACOB) Biotin has been reported to cause a negative bias, interpret results relative to patient's use of biotin. Lab Interpretation (test code = 99184-6) [facility] (NA, K, CL, CO2, GLUCOSE, BUN, CREATININE, CA)2022-04-15 19:46:59* Test Item Value Reference Range Interpretation Comme nts NA (test code = 3615215516) 139 mmol/L 135-145 K (test code = 5314912781) 4.3 mmol/L 3.5-5 CL (test code = 5649720804) 102 mmol/L 98-108 CO2 TOTAL (test code = 1663973964) 26 mmol/L 23-31 AGAP (test code = 7434632138) 2-16 BUN (test code = 7350465747) 26 mg/dL 7-23 H GLUCOSE (test code = 4714208967) 126 mg/dL 70-110 H CREATININE (test code = 7093910010) 1.60 mg/dL 0.6-1.25 H CALCIUM (test code = 7781863384) 9.4 mg/dL 8.6-10.6 eGFR (test code = 4472463678) mL/min/1.73m2 JACOB (test code = JACOB) Association of [...] or abnormalities in imaging tests). Lab Interpretation (test code = 61520-6) Abnormal [facility] WITH [id number] 19:21:29* Test Item Value Reference Range Interpretation Comme nts WBC (test code = 6690-2) See_Comment [Automated IDMission] The system which generated this result transmitted reference range: 4.20 - 10.70 10*3/?L. The reference range was not used to interpret this result as normal/abnormal. RBC (test code = 789-8) See_Comment H [Automated IDMission] The system which generated this result transmitted reference range: 4.26 - 5.52 10*6/?L. The reference range was not used to interpret this result as normal/abnormal. HGB (test code = 718-7) 14.3 g/dL 12.2-16.4 HCT (test code = 4544-3) 45.4 % 38.4-49.3 MCV (test code = 787-2) 80.2 fL 81.7-95.6 L MCH (test code = 785-6) 25.3 pg 26.1-32.7 L MCHC (test code = 786-4) 31.5 g/dL 31.2-35 RDW-SD (test code = 99862-8) 45.1 fL 38.5-51.6 RDW-CV (test code = 788-0) 15.9 % 12.1-15.4 H PLT (test code = 777-3) See_Comment [Automated messa ge] The system which generated this result transmitted reference range: 150 - 328 10*3/?L. The reference range was not used to interpret this result as normal/abnormal. MPV (test code = 08477-0) 10.8 fL 9.8-13 NRBC/100 WBC (test code = 0975781434) See_Comment [Automated [employer] ssage] The system which generated this result transmitted reference range: 0.0 - 10.0 /100 WBCs. The reference range was not used to interpret this result as normal/abnormal. NRBC x10^3 (test code = 4448437189) See_Comment [Automated messa ge] The system which generated this result transmitted reference range: 10*3/?L. The reference range was not used to interpret this result as normal/abnormal. GRAN MAT (NEUT) % (test code = 770-8) 50.4 % IMM GRAN % (test code = 2993094822) 0.30 % LYMPH % (test code = 736-9) 37.0 % MONO % (test code = 5905-5) 10.1 % EOS % (test code = 713-8) 1.9 % BASO % (test code = 706-2) 0.3 % GRAN MAT x10^3(ANC) (test code = 4403789704) 2.98 10*3/uL 1.99-6.95 IMM GRAN x10^3 (test code = 3992812183) 0-0.06 LYMPH x10^3 (test code = 731-0) 2.19 10*3/uL 1.09-3.23 MONO x10^3 (test code = 742-7) 0.60 10*3/uL 0.36-1.02 EOS x10^3 (test code = 711-2) 0.11 10*3/uL 0.06-0.53 BASO x10^3 (test code = 704-7) 0.01-0.09 Lab Interpretation (test code = 69527-7) [facility] [id number] 11:27:00* Test Item Value Reference Range Interpretation Comme nts GLUCOSE BEDSIDE TESTING (cathy t code = GLUBED) 109 mg/dL 70-110 N BASIC METABOLIC [id number] 08:09:00* Test Item Value Reference Range Interpretation Comme nts SODIUM (test code = NA) 138 mmol/L 134-147 N POTASSIUM (test code = K) 4.2 mmol/L 3.4-5.0 N CHLORIDE (test code = CL) 105 mmol/L 100-108 N CARBON DIOXIDE (test code = CO2) 30 mmol/L 21-32 N ANION GAP (test code = GAP) 3.0 GAP calc 4.0-15.0 L GLUCOSE (test code = GLU) 99 MG/DL 70-110 N BLOOD UREA NITROGEN (test code = BUN) 26 MG/DL 7-18 H GLOMERULAR FILTRATION RATE (test code = GFR) >=60 max estimate estGFR >60 CREATININE (test code = CREAT) 1.3 MG/DL 0.8-1.3 N CALCIUM (test code = CA) 9.5 MG/DL 8.5-10.1 N GLUCOSE BEDSIDE [id number] 07:15:00* Test Item Value Reference Range Interpretation Comme nts GLUCOSE BEDSIDE TESTING (cathy t code = GLUBED) 102 mg/dL 70-110 N GLUCOSE BEDSIDE [id number] 23:04:00* Test Item Value Reference Range Interpretation Comme nts GLUCOSE BEDSIDE TESTING (cathy t code = GLUBED) 127 mg/dL 70-110 H GLUCOSE BEDSIDE [id number] 20:03:00* Test Item Value Reference Range Interpretation Comme nts GLUCOSE BEDSIDE TESTING (cathy t code = GLUBED) 149 mg/dL 70-110 H GLUCOSE BEDSIDE [id number] 16:55:00* Test Item Value Reference Range Interpretation Comme nts GLUCOSE BEDSIDE TESTING (cathy t code = GLUBED) 110 mg/dL 70-110 N GLUCOSE BEDSIDE [id number] 11:23:00* Test Item Value Reference Range Interpretation Comme nts GLUCOSE BEDSIDE TESTING (cathy t code = GLUBED) 173 mg/dL 70-110 H GLUCOSE BEDSIDE [id number] 08:33:00* Test Item Value Reference Range Interpretation Comme nts GLUCOSE BEDSIDE TESTING (cathy t code = GLUBED) 107 mg/dL 70-110 N DRUGS OF ABUSE SCREEN [id number] 06:11:00* Test Item Value Reference Range Interpretation Comme nts URN COCAINE (test code = COCAURN) NEGATIVE SCcutoff See_Comment UNCONFIRMED SCREENING RESULTS SHOULD NOT BE USED FORNON-MEDICAL PURPOSES. [Automated message] The system which generated this result transmitted reference range: <300 NG/ML. The reference range was not used to interpret this result as normal/abnormal. URN CANNABINOIDS (test code = CANNABURN) NEGATIVE SCcutoff See_Comment UNCONFIRMED SCREENING RESULTS SHOULD NOT BE USED FORNON-MEDICAL PURPOSES. [Automated message] The system which generated this result transmitted reference range: <50 NG/ML. The reference range was not used to interpret this result as normal/abnormal. URN AMPHETAMINE (test code = AMPHETURN) NEGATIVE SCcutoff See_Comment UNCONFIRMED SCREENING RESULTS SHOULD NOT BE USED FORNON-MEDICAL PURPOSES. [Automated message] The system which generated this result transmitted reference range: <1000 NG/ML. The reference range was not used to interpret this result as normal/abnormal. URN BARBITURATE (test code = BARBITURN) NEGATIVE SCcutoff See_Comment UNCONFIRMED SCREENING RESULTS SHOULD NOT BE USED FORNON-MEDICAL PURPOSES. [Automated message] The system which generated this result transmitted reference range: <200 NG/ML. The reference range was not used to interpret this result as normal/abnormal. URN BENZODIAZEPINE (test code = BENZOURN) NEGATIVE SCcutoff See_Comment UNCONFIRMED SCREENING RESULTS SHOULD NOT BE USED FORNON-MEDICAL PURPOSES. [Automated message] The system which generated this result transmitted reference range: <200 NG/ML. The reference range was not used to interpret this result as normal/abnormal. URN OPIATES (test code = OPIATURN) NEGATIVE SCcutoff See_Comment UNCONFIRMED SCREENING RESULTS SHOULD NOT BE USED FORNON-MEDICAL PURPOSES. [Automated message] The system which generated this result transmitted reference range: <2000 NG/ML. The reference range was not used to interpret this result as normal/abnormal. URN PHENCYCLIDINE (PCP) (test code = PHENCURN) NEGATIVE SCcutoff See_Comment UNCONFIRMED SCREENING RESULTS SHOULD NOT BE USED FORNON-MEDICAL PURPOSES. [Automated message] The system which generated this result transmitted reference range: <25 NG/ML. The reference range was not used to interpret this result as normal/abnormal. URN METHADONE (test code = METHAURN) NEGATIVE SCcutoff See_Comment UNCONFIRMED SCREENING RESULTS SHOULD NOT BE USED FORNON-MEDICAL PURPOSES. [Automated message] The system which generated this result transmitted reference range: <300 NG/ML. The reference range was not used to interpret this result as normal/abnormal. [id number] 20:43:00* Test Item Value Reference Range Interpretation Comme nts TROPONIN-I (test code = TROPI) 0.022 NG/ML 0.000-0.045 N Negative: </= 0. 045 Positive: >/= 0.046 Correlation with serial results, other cardiac markers, and clinical findings is necessary to determine the clinical significance of this result. Quantitative results using different methodologies should not be compared to one another as numerical results may varyby method. Completed by Nursing: NO- CTA CHEST FOR [id number] 18:35:00 [facility] 1965 Sex: M Name: BRYAN PARADA [facility] : 1965 Age/S: 55 / M 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 COMPARISON: CT 02/04/2021 and recent chest x-ray FINDINGS: Pulmonary arteries: No evidence for pulmonary embolism or heart strain. Aorta, heart and great vessels: No evidence for aneurysm or dissection. The heart is enlarged with left ventricular configuration. There is no pericardial effusion and no cardiac decompensation. A left-sided pacemaker is in place. Mediastinum and hermelinda: No abnormal mass or adenopathy. Lungs and pleura: No consolidation, pneumothorax or effusion Bones and soft tissues: No abnormality noted with degenerative changes in the spine. Upper abdomen: No acute findings. IMPRESSION: 1. No evidence for pulmonary embolism, aneurysmor dissection. 2. Cardiomegaly with left ventricular configuration. Pacemaker in place with no cardiac decompensation. 3. Otherwise no acute findings in the chest. PAGE 1 Signed Report (CONTINUED) Name: BRYAN PARADA : 1965 Age/S: 55 / M [address] Unit #: [id number] Loc: [place] [address] Phys: Isac Rouse DO Acct: [id number] Dis Date: Status: REG ER PHONE#: [phone] Exam Date: 02/27/2021 1800 FAX #: Reason: chest pain, elevated ddimer EXAMS: CPT: [id number] [place] [address] (Continued) at 1835 Reported and signed by: April Marsh M.D. CC: Isac Rouse DO Technologist:Caitlin Slaughter RT(R)(CT)(MRI) CTDI: DLP: Trnscb Date/Time: 02/27/2021 (1835) tSHERONC Orig Print D/T: S: 02/27/2021 (1838) PAGE 2 Signed ReportCOVID 19 INHOUSE [id number] 14:54:00* Test Item Value Reference Range Interpretation Comme nts COVID 19 INHOUSE AG (test code = [id number]) NEGATIVE Negative Per customer advisor specialist , negative results should be treated aspresumptive and, if inconsistent with clinical signs andsymptoms or necessary for patient management, should betested with an alternative molecular assay. Negative resultsdo not preclude SARS-CoV-2 infection and should not be usedas the sole basis for patient management decisions. Negative results should be considered in the context of apatient's recent exposures, history, presence of clinicalsigns and symptoms consistent with COVID-19. [id number] 13:38:00* Test Item Value Reference Range Interpretation Comme nts D-DIMER (test code = DDIMER) 939 ng/mLFEU 215-500 HH THROMBOSIS AND/O R PULMONARY EMBOLISM AND THE CLINICAL CUT-OFF VALUE FOR EXCLUSION (500 ng/mL FEU) OF THESE CONDITIONSIS VALIDATED BY THE OIL WINTERIZER OF THE METHOD. A NEGATIVE D-DIMER RESULT WHEN COMBINED WITH A CLINICALASSESSMENT OF LOW PRETEST PROBABILITY HAS BEEN SHOWN TO HAVEA HIGH NEGATIVE PREDICTIVE VALUE OF DVT OR PE. D-DIMER VALUES >500 ng/mL FEU ARE NOT DIAGNOSTIC FOR DVT, PEor DIC WITHOUT OTHER CONFIRMATORY TESTS AND APPROPRIATECLINICAL EUALUATIONS. - XR CHEST 1 [id number] 13:35:00 [facility] 1965 Sex: M Name: BRYAN PARADA [facility] : 1965 Age/S: 55 / M [address] [place] Unit #: [id number] Loc: [place] [address] Phys: Isac Rouse DO Acct: [id number] Dis Date: Status: REG ER PHONE #: [phone] Exam Date: 02/27/2021 1320 FAX #: Reason: chest pain EXAMS: CPT: [id number] XR CHEST 1 V 30392 Fluoro Time: DAP (Gy m2): Air Kerma (mGy): Location of dictation: B2 Portable chest one view. HISTORY: chest pain COMMENT: Compared to 02/04/2021. A left-sided pacemaker is again seen. The heart is slightly smaller, mild interstitial prominence also unchanged with no florid cardiac decompensation and no new consolidation, pneumothorax or effusion. Visualized soft tissues and skeletal structures are unremarkable. IMPRESSION: Less congestive appearance of the chest with no acute findings. at 0832 Reported and signed by: April Marsh M.D. CC: Isac Rouse DO PAGE 1 Signed Report Name: BRYAN PARADA [facility] : 1965 Age/S: 55 / M [address] [place] Unit #: [id number] Loc: [place] [address] Phys: Shraddha Rouse Acct: [id number] Dis Date: Status: REG ER PHONE #: [phone] Exam Date: 02/27/2021 1320 FAX #: Reason: chest pain EXAMS: CPT: [id number] XR CHEST 1 V 67280 Fluoro Time: DAP (Gy m2): Air Kerma (mGy): (Continued) Technologist: Bandar Tirado RT(R)(CT) Trnscb Date/Time: 02/27/2021 (3067) t.PXC Orig Print D/T: S: 02/27/2021 (6987) PAGE 2 Signed ReportBASIC METABOLIC [id number] 13:29:00* Test Item Value Reference Range Interpretation Comme nts SODIUM (test code = NA) 140 mmol/L 134-147 N POTASSIUM (test code = K) 4.2 mmol/L 3.4-5.0 N CHLORIDE (test code = CL) 108 mmol/L 100-108 N CARBON DIOXIDE (test code = CO2) 26 mmol/L 21-32 N ANION GAP (test code = GAP) 6.0 GAP calc 4.0-15.0 N GLUCOSE (test code = GLU) 107 MG/DL 70-110 N BLOOD UREA NITROGEN (test co de = BUN) 27 MG/DL 7-18 H GLOMERULAR FILTRATION RATE ( test code = GFR) 54 estGFR >60 L CREATININE (test code = CREAT) 1.7 MG/DL 0.8-1.3 H CALCIUM (test code = CA) 8.9 MG/DL 8.5-10.1 N Completed by Nursing: NOCREATINE KINASE (CK)2021-02-27 13:29:00* Test Item Value Reference Range Interpretation Comme nts CREATINE KINASE (CK) (test c ode = CK) 318 Unit/L 26-192 H Completed by Nursing: NONT PRO-BRAIN NATRIURETIC [id number] 13:29:00* Test Item Value Reference Range Interpretation Comme nts NT PRO-BRAIN NATRIURETIC PEP TI (test code = PROBNP) 1727 PG/ML 0-100 H Completed by Nursing: [id number] 13:29:00* Test Item Value Reference Range Interpretation Comme nts TROPONIN-I (test code = TROPI) < 0.015 NG/ML 0.000-0.045 N Negative: </= 0. 045 Positive: >/= 0.046 Correlation with serial results, other cardiac markers, and clinical findings is necessary to determine the clinical significance of this result. Quantitative results using different methodologies should not be compared to one another as numerical results may varyby method. Completed by Nursing: NOCBC W/O [id number] 13:18:00* Test Item Value Reference Range Interpretation Comme nts WHITE BLOOD CELL (test code = WBC) [...] pg 28.9-34.4 L MEAN CELL HGB CONCETRATION ( test code = MCHC) 31.5 G/DL 32.1-34.5 L RED CELL DISTRIBUTION WIDTH (test code = RDW) 15.9 SD 11.5-14.5 H PLATELET COUNT (test code = PLT) 226 K/mm3 150-450 N MEAN PLATELET VOLUME (test c ode = MPV) 11.20 fL 7.0-9.6 H [id number] 16:47:00* Test Item Value Reference Range Interpretation Comme nts GLUBED (test code = GLUBED) 116 MG/DL 70-110 H Performed by cer tified [place] machine operator at [facility] [id number] 11:32:00* Test Item Value Reference Range Interpretation Comme nts GLUBED (test code = GLUBED) 110 MG/DL 70-110 N Performed by cer tified [place] machine operator at [facility] [id number] 08:13:00* Test Item Value Reference Range Interpretation Comme nts GLUBED (test code = GLUBED) 101 MG/DL 70-110 N Performed by cer tified [place] machine operator at [facility] HGBA1C%2021-02-06 07:50:00* Test Item Value Reference Range Interpretation Comme nts HGBA1C% (test code = HGBA1C%) 5.9 %A1C 4.8-6.0 N BASIC METABOLIC [id number] 07:33:00* Test Item Value Reference Range Interpretation Comme nts SODIUM (test code = NA) 142 mEq/L 134-147 N POTASSIUM (test code = K) 4.4 mEq/L 3.4-5.0 N CHLORIDE (test code = CL) 107 mEq/L 100-108 N CARBON DIOXIDE (test code = CO2) 30 mEq/l 21-33 N ANION GAP (test code = GAP) 9 0-20 N GLUCOSE (test code = GLU) 92 mg/dL 70-110 N BLOOD UREA NITROGEN (test code = BUN) 21 mg/dL 7-18 H GLOMERULAR FILTRATION RATE (test code = GFR) 63.9 90-95 L Units of measure = ml/min/1.73 m2 CREATININE (test code = CREAT) 1.4 mg/dL 0.6-1.3 H CALCIUM (test code = CA) 9.0 mg/dL 8.0-10.5 N TSH REFLEX TO [id number] 07:33:00* Test Item Value Reference Range Interpretation Comme nts TSH REFLEX TO FT4 (test code = TSHREFLEX) 0.50 IU/mL 0.42-5.47 N BASIC METABOLIC [id number] 07:28:00* Test Item Value Reference Range Interpretation Comme nts SODIUM (test code = NA) 142 mEq/L 134-147 N POTASSIUM (test code = K) 4.4 mEq/L 3.4-5.0 N CHLORIDE (test code = CL) 107 mEq/L 100-108 N CARBON DIOXIDE (test code = CO2) 30 mEq/l 21-33 N ANION GAP (test code = GAP) 9 0-20 N GLUCOSE (test code = GLU) 92 mg/dL 70-110 N BLOOD UREA NITROGEN (test code = BUN) 21 mg/dL 7-18 H GLOMERULAR FILTRATION RATE (test code = GFR) 63.9 90-95 L Units of measure = ml/min/1.73 m2 CREATININE (test code = CREAT) 1.4 mg/dL 0.6-1.3 H CALCIUM (test code = CA) 9.0 mg/dL 8.0-10.5 N TSH REFLEX TO [id number] 07:28:00* Test Item Value Reference Range Interpretation Comme nts TSH REFLEX TO FT4 (test code = TSHREFLEX) IU/mL 0.42-5.47 CBC W/AUTO [id number] 07:23:00* Test Item Value Reference Range Interpretation Comme nts WHITE BLOOD CELL (test code = WBC) 5.2 x10 3/uL 4.5-11.0 N RED BLOOD CELL (test code = RBC) 5.51 x10 6/uL 4.00-5.60 N HEMOGLOBIN (test code = HGB) 14.2 g/dL 12.5-16.9 N HEMATOCRIT (test code = HCT) 46.1 % 37.5-50.7 N MEAN CELL VOLUME (test code = MCV) 83.7 fL 81.0-99.0 MEAN CELL HGB (test code = MCH) 25.8 pg 27.0-33.0 L MEAN CELL HGB CONCETRATION (test code = MCHC) 30.8 g/dL 33.0-37.0 L RED CELL DISTRIBUTION WIDTH CV (test code = RDW) 16.4 % 11.5-14.5 H RED CELL DISTRIBUTION WIDTH SD (test code = RDW-SD) 50.1 fL 37.0-54.0 N PLATELET COUNT (test code = PLT) 219 x10 3/uL 150-400 N MEAN PLATELET VOLUME (test c ode = MPV) 11.5 fL 7.0-9.0 H NEUTROPHIL % (test code = NT%) 44.2 % 56.0-77.0 L IMMATURE GRANULOCYTE % (test code = IG%) 0.2 % 0.0-2.0 N LYMPHOCYTE % (test code = LY%) 42.8 % 14.0-32.0 H MONOCYTE % (test code = MO%) 10.5 % 4.8-9.0 H EOSINOPHIL % (test code = EO%) 1.9 % 0.3-3.7 N BASOPHIL % (test code = BA%) 0.4 % 0.0-2.0 N NUCLEATED RBC % (test code = NRBC%) 0.0 % 0-0 N NEUTROPHIL # (test code = NT#) 2.28 x10 3/uL 2.0-7.6 N IMMATURE GRANULOCYTE # (test code = IG#) 0.01 x10 3/uL 0.00-0.03 N LYMPHOCYTE # (test code = LY#) 2.21 x10 3/uL 1.0-3.8 N MONOCYTE # (test code = MO#) 0.54 x10 3/uL 0.1-0.8 N EOSINOPHIL # (test code = EO#) 0.10 x10 3/uL 0.0-0.2 N BASOPHIL # (test code = BA#) 0.02 x10 3/uL 0.0-0.2 N NUCLEATED RBC # (test code = NRBC#) 0.00 x10 3/uL 0.0-0.1 N MANUAL DIFF REQUIRED (test c ode = MDIFF) NO [id number] 20:49:00* Test Item Value Reference Range Interpretation Comme nts GLUBED (test code = GLUBED) 129 MG/DL 70-110 H Performed by cer tified [place] machine operator at [facility] COMPREHENSIVE METABOLIC [id number] 04:33:00* Test Item Value Reference Range Interpretation Comme nts SODIUM (test code = NA) 141 mEq/L 134-147 N POTASSIUM (test code = K) 4.2 mEq/L 3.4-5.0 N CHLORIDE (test code = CL) 109 mEq/L 100-108 H CARBON DIOXIDE (test code = CO2) 28 mEq/l 21-33 N ANION GAP (test code = GAP) 8 0-20 N GLUCOSE (test code = GLU) 98 mg/dL 70-110 N BLOOD UREA NITROGEN (test code = BUN) 21 mg/dL 7-18 H GLOMERULAR FILTRATION RATE (test code = GFR) 63.9 90-95 L Units of measure = ml/min/1.73 m2 CREATININE (test code = CREAT) 1.4 mg/dL 0.6-1.3 H TOTAL PROTEIN (test code = PROT) 7.0 g/dL 6.4-8.2 N ALBUMIN (test code = ALB) 3.50 g/dL 3.4-5.0 N CALCIUM (test code = CA) 8.9 mg/dL 8.0-10.5 N BILIRUBIN TOTAL (test code = BILT) 0.60 mg/dL 0.0-1.0 N SGOT/AST (test code = AST) 22 IUnit/L 15-37 N SGPT/ALT (test code = ALT) 23 IUnit/L 30-65 L ALKALINE PHOSPHATASE TOTAL (test code = ALKP) 55 IUnit/L 20-125 N LIPID PROFILE (CORONARY RISK)2021-02-05 04:33:00* Test Item Value Reference Range Interpretation Comme nts TRIGLYCERIDES (test code = TRIG) 141 mg/dL 40-150 N CHOLESTEROL (test code = CHOL) 188 mg/dL <200 CHOLESTEROL/HDL RATIO (test code = CHOLHDL) 6.16 RATIO 3.43-4.97 H RISK ASSOCIATED WITH CHOL/HDL RATIOS: RISK MALE FEMALE1/2 AVERAGE 3.43 3.27AVERAGE 4.97 4.442X AVERAGE 9.55 7.053X AVERAGE 23.39 11.04 NOTE THAT THE REFERENCE VALUE IS RELATEDTO RISK LEVELS RECOMMENDED BY THE NATL.HEART, LUNG, AND BLOOD INST. HDL CHOLESTEROL (test code = HDL) 30.5 mg/dL 32-72 L LIPOPROTEIN LDL (test code = LDL) 160.1 mg/dL 0-100 H <100 [id number] 0-129 NEAR OPTIMAL/ABOVE [id number] HIGH>JK=116 VERY HIGH*Guidelines provided by the National Cholesterol EducationProgram Adult Treatment Panel III CBC W/AUTO [id number] 04:22:00* Test Item Value Reference Range Interpretation Comme nts WHITE BLOOD CELL (test code = WBC) 5.2 x10 3/uL 4.5-11.0 N RED BLOOD CELL (test code = RBC) 5.66 x10 6/uL 4.00-5.60 H HEMOGLOBIN (test code = HGB) 14.3 g/dL 12.5-16.9 N HEMATOCRIT (test code = HCT) 45.3 % 37.5-50.7 N MEAN CELL VOLUME (test code = MCV) 80.0 fL 81.0-99.0 L MEAN CELL HGB (test code = MCH) 25.3 pg 27.0-33.0 L MEAN CELL HGB CONCETRATION (test code = MCHC) 31.6 g/dL 33.0-37.0 L RED CELL DISTRIBUTION WIDTH CV (test code = RDW) 17.2 % 11.5-14.5 H RED CELL DISTRIBUTION WIDTH SD (test code = RDW-SD) 47.8 fL 37.0-54.0 N PLATELET COUNT (test code = PLT) 208 x10 3/uL 150-400 N MEAN PLATELET VOLUME (test c ode = MPV) 10.5 fL 7.0-9.0 H NEUTROPHIL % (test code = NT%) 41.9 % 56.0-77.0 L IMMATURE GRANULOCYTE % (test code = IG%) 0.2 % 0.0-2.0 N LYMPHOCYTE % (test code = LY%) 43.2 % 14.0-32.0 H MONOCYTE % (test code = MO%) 12.0 % 4.8-9.0 H EOSINOPHIL % (test code = EO%) 2.3 % 0.3-3.7 N BASOPHIL % (test code = BA%) 0.4 % 0.0-2.0 N NUCLEATED RBC % (test code = NRBC%) 0.0 % 0-0 N NEUTROPHIL # (test code = NT#) 2.19 x10 3/uL 2.0-7.6 N IMMATURE GRANULOCYTE # (test code = IG#) 0.01 x10 3/uL 0.00-0.03 N LYMPHOCYTE # (test code = LY#) 2.26 x10 3/uL 1.0-3.8 N MONOCYTE # (test code = MO#) 0.63 x10 3/uL 0.1-0.8 N EOSINOPHIL # (test code = EO#) 0.12 x10 3/uL 0.0-0.2 N BASOPHIL # (test code = BA#) 0.02 x10 3/uL 0.0-0.2 N NUCLEATED RBC # (test code = NRBC#) 0.00 x10 3/uL 0.0-0.1 N MANUAL DIFF REQUIRED (test c ode = MDIFF) NO CBC W/AUTO [id number] 04:21:00* Test Item Value Reference Range Interpretation Comme nts WHITE BLOOD CELL (test code = WBC) x10 3/uL 4.5-11.0 RED BLOOD CELL (test code = RBC) x10 6/uL 4.00-5.60 HEMOGLOBIN (test code = HGB) 14.3 g/dL 12.5-16.9 N HEMATOCRIT (test code = HCT) 45.3 % 37.5-50.7 N MEAN CELL VOLUME (test code = MCV) fL 81.0-99.0 MEAN CELL HGB (test code = MCH) pg 27.0-33.0 MEAN CELL HGB CONCETRATION ( test code = MCHC) g/dL 33.0-37.0 RED CELL DISTRIBUTION WIDTH CV (test code = RDW) % 11.5-14.5 PLATELET COUNT (test code = PLT) 208 x10 3/uL 150-400 N NEUTROPHIL % (test code = NT%) % 56.0-77.0 LYMPHOCYTE % (test code = LY%) % 14.0-32.0 NEUTROPHIL # (test code = NT#) x10 3/uL 2.0-7.6 LYMPHOCYTE # (test code = LY#) x10 3/uL 1.0-3.8 MANUAL DIFF REQUIRED (test c ode = MDIFF) [id number] 00:46:00* Test Item Value Reference Range Interpretation Comme nts TROPONIN-I (test code = TROPI) 0.090 ng/mL 0.000-0.045 H Negative: <= 0.0 45 Positive: >= 0.046 Correlation with serial results, other cardiac markers andclinical findings is necessary to determine the clinicalsignificance of this result. Results using different methodologies should not be comparedto one another as quantitative results may vary by method. LIPOPROTEIN [id number] 22:00:00* Test Item Value Reference Range Interpretation Comme nts LIPOPROTEIN LDL (test code = LDL) 166.8 mg/dL 0-100 H <100 [id number] 0-129 NEAR OPTIMAL/ABOVE [id number] HIGH>TR=906 VERY HIGH*Guidelines provided by the National Cholesterol EducationProgram Adult Treatment Panel III [id number] 21:44:00* Test Item Value Reference Range Interpretation Comme nts TROPONIN-I (test code = TROPI) 0.098 ng/mL 0.000-0.045 H Negative: <= 0.0 45 Positive: >= 0.046 Correlation with serial results, other cardiac markers andclinical findings is necessary to determine the clinicalsignificance of this result. Results using different methodologies should not be comparedto one another as quantitative results may vary by method. [id number] 21:34:00* Test Item Value Reference Range Interpretation Comme nts GLUBED (test code = GLUBED) 94 MG/DL 70-110 N Performed by cer tified [place] machine operator at [facility] UA RFLX MICR CULT IF [id number] 18:05:00* Test Item Value Reference Range Interpretation Comme nts UA COLOR (test code = COLU) YELLOW discript YEL/STRAW UA APPEARANCE (test code = APPU) CLEAR discript CLEAR UA GLUCOSE DIPSTICK (test code = DGLUU) NEGATIVE mg/dL NEG UA BILIRUBIN DIPSTICK (test code = BILU) NEGATIVE mg/dL NEG UA KETONE DIPSTICK (test code = KETU) NEGATIVE mg/dL NEG UA SPECIFIC GRAVITY (test code = SGU) 1.015 SG 1.005-1.030 UA BLOOD DIPSTICK (test code = SRAVAN) NEGATIVE mg/DL NEG UA PH DIPSTICK (test code = WILLIE) 5.5 pH UNITS 5.0-7.0 UA PROTEIN DIPSTICK (test code = PROU) 1+ mg/dL NEG A UA UROBILINIOGEN DIPSTICK (test code = URO) 0.2 mg/dL <2.0 UA NITRITE DIPSTICK (test code = CARLOS) NEGATIVE SCREEN NEG UA LEUKOCYTE ESTERASE DIPSTICK (test code = LEUU) NEGATIVE Leuk/mcL NEGATIVE UA WBC (test code = WBCU) 1-3 #WBC/HPF 0-3 UA RBC (test code = RBCU) NONE SEEN #RBC/HPF 0-3 UA BACTERIA (test code = BACU) TRACE /HPF NONE-TRACE UA SQUAMOUS CELLS (test code = SQU) TRACE /HPF NONE UA CULTURE NEEDED? (test code = UACULT) NO, WBC<10 Criteria Culture CHK Indication for culture: Dysuria/FrequencyDRUGS OF ABUSE SCREEN [id number] 18:05:00* Test Item Value Reference Range Interpretation Comme nts URN COCAINE (test code = COCAURN) POSITIVE SCcutoff See_Comment A [Automated message] The system which generated this result transmitted reference range: <300 NG/ML. The reference range was not used to interpret this result as normal/abnormal. URN CANNABINOIDS (test code = CANNABURN) NEGATIVE SCcutoff See_Comment [Automated message] The system which generated this result transmitted reference range: <50 NG/ML. The reference range was not used to interpret this result as normal/abnormal. URN AMPHETAMINE (test code = AMPHETURN) NEGATIVE SCcutoff See_Comment [Automated message] The system which generated this result transmitted reference range: <1000 NG/ML. The reference range was not used to interpret this result as normal/abnormal. URN BARBITURATE (test code = BARBITURN) NEGATIVE SCcutoff See_Comment [Automated message] The system which generated this result transmitted reference range: <200 NG/ML. The reference range was not used to interpret this result as normal/abnormal. URN BENZODIAZEPINE (test code = BENZOURN) NEGATIVE SCcutoff See_Comment [Automated message] The system which generated this result transmitted reference range: <200 NG/ML. The reference range was not used to interpret this result as normal/abnormal. URN OPIATES (test code = OPIATURN) NEGATIVE SCcutoff See_Comment [Automated message] The system which generated this result transmitted reference range: <2000 NG/ML. The reference range was not used to interpret this result as normal/abnormal. URN PHENCYCLIDINE (PCP) (test code = PHENCURN) NEGATIVE SCcutoff See_Comment [Automated message] The system which generated this result transmitted reference range: <25 NG/ML. The reference range was not used to interpret this result as normal/abnormal. URN METHADONE (test code = METHAURN) NEGATIVE SCcutoff See_Comment [Automated message] The system which generated this result transmitted reference range: <300 NG/ML. The reference range was not used to interpret this result as normal/abnormal. Indication for culture: Dysuria/FrequencyUA RFLX MICR CULT IF INDICATED 2021-02-04 17:28:00* Test Item Value Reference Range Interpretation Comme nts UA COLOR (test code = COLU) YELLOW discript YEL/STRAW UA APPEARANCE (test code = APPU) CLEAR discript CLEAR UA GLUCOSE DIPSTICK (test code = DGLUU) NEGATIVE mg/dL NEG UA BILIRUBIN DIPSTICK (test code = BILU) NEGATIVE mg/dL NEG UA KETONE DIPSTICK (test code = KETU) NEGATIVE mg/dL NEG UA SPECIFIC GRAVITY (test code = SGU) 1.015 SG 1.005-1.030 UA BLOOD DIPSTICK (test code = SRAVAN) NEGATIVE mg/DL NEG UA PH DIPSTICK (test code = WILLIE) 5.5 pH UNITS 5.0-7.0 UA PROTEIN DIPSTICK (test code = PROU) 1+ mg/dL NEG A UA UROBILINIOGEN DIPSTICK (test code = URO) 0.2 mg/dL <2.0 UA NITRITE DIPSTICK (test code = CARLOS) NEGATIVE SCREEN NEG UA LEUKOCYTE ESTERASE DIPSTICK (test code = LEUU) NEGATIVE Leuk/mcL NEGATIVE UA WBC (test code = WBCU) 1-3 #WBC/HPF 0-3 UA RBC (test code = RBCU) NONE SEEN #RBC/HPF 0-3 UA BACTERIA (test code = BACU) TRACE /HPF NONE-TRACE UA SQUAMOUS CELLS (test code = SQU) TRACE /HPF NONE UA CULTURE NEEDED? (test code = UACULT) NO, WBC<10 Criteria Culture CHK Indication for culture: Dysuria/FrequencyDRUGS OF ABUSE SCREEN [id number] 17:28:00* Test Item Value Reference Range Interpretation Comme nts URN COCAINE (test code = COCAURN) SCcutoff See_Comment [Automated messa ge] The system which generated this result transmitted reference range: <300 NG/ML. The reference range was not used to interpret this result as normal/abnormal. URN CANNABINOIDS (test code = CANNABURN) SCcutoff See_Comment [Automated mes sudheer] The system which generated this result transmitted reference range: <50 NG/ML. The reference range was not used to interpret this result as normal/abnormal. URN AMPHETAMINE (test code = AMPHETURN) SCcutoff See_Comment [Automated mes sudheer] The system which generated this result transmitted reference range: <1000 NG/ML. The reference range was not used to interpret this result as normal/abnormal. URN BARBITURATE (test code = BARBITURN) SCcutoff See_Comment [Automated mes sudheer] The system which generated this result transmitted reference range: <200 NG/ML. The reference range was not used to interpret this result as normal/abnormal. URN BENZODIAZEPINE (test code = BENZOURN) SCcutoff See_Comment [Automated mess age] The system which generated this result transmitted reference range: <200 NG/ML. The reference range was not used to interpret this result as normal/abnormal. URN OPIATES (test code = OPIATURN) SCcutoff See_Comment [Automated messa ge] The system which generated this result transmitted reference range: <2000 NG/ML. The reference range was not used to interpret this result as normal/abnormal. URN PHENCYCLIDINE (PCP) (test code = PHENCURN) SCcutoff See_Comment [Automate d message] The system which generated this result transmitted reference range: <25 NG/ML. The reference range was not used to interpret this result as normal/abnormal. URN METHADONE (test code = METHAURN) SCcutoff See_Comment [Automated messa ge] The system which generated this result transmitted reference range: <300 NG/ML. The reference range was not used to interpret this result as normal/abnormal. Indication for culture: Dysuria/FrequencyUA RFLX MICR CULT IF INDICATED 2021-02-04 17:23:00* Test Item Value Reference Range Interpretation Comme nts UA COLOR (test code = COLU) YELLOW discript YEL/STRAW UA APPEARANCE (test code = APPU) CLEAR discript CLEAR UA GLUCOSE DIPSTICK (test code = DGLUU) NEGATIVE mg/dL NEG UA BILIRUBIN DIPSTICK (test code = BILU) NEGATIVE mg/dL NEG UA KETONE DIPSTICK (test code = KETU) NEGATIVE mg/dL NEG UA SPECIFIC GRAVITY (test code = SGU) 1.015 SG 1.005-1.030 UA BLOOD DIPSTICK (test code = SRAVAN) NEGATIVE mg/DL NEG UA PH DIPSTICK (test code = WILLIE) 5.5 pH UNITS 5.0-7.0 UA PROTEIN DIPSTICK (test code = PROU) 1+ mg/dL NEG A UA UROBILINIOGEN DIPSTICK (test code = URO) 0.2 mg/dL <2.0 UA NITRITE DIPSTICK (test code = CARLOS) NEGATIVE SCREEN NEG UA LEUKOCYTE ESTERASE DIPSTICK (test code = LEUU) NEGATIVE Leuk/mcL NEGATIVE UA CULTURE NEEDED? (test code = UACULT) Criteria Culture CHK Indication for culture: Dysuria/FrequencyDRUGS OF ABUSE SCREEN [id number] 17:23:00* Test Item Value Reference Range Interpretation Comme nts URN COCAINE (test code = COCAURN) SCcutoff See_Comment [Automated Reframed.tva ge] The system which generated this result transmitted reference range: <300 NG/ML. The reference range was not used to interpret this result as normal/abnormal. URN CANNABINOIDS (test code = CANNABURN) SCcutoff See_Comment [Automated [employer] sudheer] The system which generated this result transmitted reference range: <50 NG/ML. The reference range was not used to interpret this result as normal/abnormal. URN AMPHETAMINE (test code = AMPHETURN) SCcutoff See_Comment [Automated [employer] sudheer] The system which generated this result transmitted reference range: <1000 NG/ML. The reference range was not used to interpret this result as normal/abnormal. URN BARBITURATE (test code = BARBITURN) SCcutoff See_Comment [Automated mes sudheer] The system which generated this result transmitted reference range: <200 NG/ML. The reference range was not used to interpret this result as normal/abnormal. URN BENZODIAZEPINE (test code = BENZOURN) SCcutoff See_Comment [Automated mess age] The system which generated this result transmitted reference range: <200 NG/ML. The reference range was not used to interpret this result as normal/abnormal. URN OPIATES (test code = OPIATURN) SCcutoff See_Comment [Automated messa ge] The system which generated this result transmitted reference range: <2000 NG/ML. The reference range was not used to interpret this result as normal/abnormal. URN PHENCYCLIDINE (PCP) (test code = PHENCURN) SCcutoff See_Comment [Automate d message] The system which generated this result transmitted reference range: <25 NG/ML. The reference range was not used to interpret this result as normal/abnormal. URN METHADONE (test code = METHAURN) SCcutoff See_Comment [Automated messa ge] The system which generated this result transmitted reference range: <300 NG/ML. The reference range was not used to interpret this result as normal/abnormal. Indication for culture: Dysuria/Frequency- CTA CHEST FOR [id number] [facility]:11[facility] 1965 Sex: M Name: BRYAN PARADA [facility] : 1965 Age/S: 55 / M [id number] [place] Unit #: [id number] Loc: [place] [address] Phys: Isac Rouse DO Acct: [id number] Dis Date: Status: REG ER PHONE#: [phone] Exam Date: 02/04/2021 7881 FAX #: Reason: chest pain EXAMS: CPT: [id number] [place] [address] EXAM: - CTA CHEST FOR PE LOCATION: [...] calcifications. MEDIASTINUM: There is borderline four-chamber dilation ofthe heart. The pericardium is unremarkable. Left chest wall 3-lead defibrillator is noted with leads in appropriate position. The thoracic aorta is nonaneurysmal. No significant aortic atherosclerosis. Minimal coronary artery calcifications. The esophagus is grossly unremarkable. VISUALIZED ABDOMEN: There is reflux of contrast into the hepatic veins. The visualized upper abdomen is unremarkable.SOFT TISSUES: Left chest wall defibrillator noted. PAGE 1 Signed Report (CONTINUED) Name: BRYAN PARADA : 1965 Age/S: 55 / M [address] [place] Unit #: [id number] Loc: [place] [address] Phys: Isac Rouse DO Acct: [id number] Dis Date: Status: REG ER PHONE #: Exam Date: 02/04/2021 1540 FAX #: Reason: chest pain EXAMS: CPT: [id number] [place] [address] (Continued) BONES: No acute osseous findings. Mild thoracic texture scoliosis. IMPRESSION: 1. No pulmonary embolism. No acute findings throughout the lungs. 2. Borderline dilated heart chambers. at 1611 Reported and signed by: Luis Rogers D.O. CC: Isac DARNELL Technologist:Carmen Ruggiero, RT(R) CTDI: DLP: Trnscb Date/Time: 02/04/2021 (1611) [id number] Orig Print D/T: S: 02/04/2021 (1615) PAGE 2 Signed Report [id number] 14:30:00* Test Item Value Reference Range Interpretation Comme nts D-DIMER (test code = DDIMER) 979 ng/mLFEU 215-500 HH BASIC METABOLIC [id number] 14:03:00* Test Item Value Reference Range Interpretation Comme nts SODIUM (test code = NA) 139 mmol/L 134-147 N POTASSIUM (test code = K) 4.5 mmol/L 3.4-5.0 N CHLORIDE (test code = CL) 109 mmol/L 100-108 H CARBON DIOXIDE (test code = CO2) 26 mmol/L 21-32 N ANION GAP (test code = GAP) 4.0 GAP calc 4.0-15.0 N GLUCOSE (test code = GLU) 102 MG/DL 70-110 N BLOOD UREA NITROGEN (test code = BUN) 25 MG/DL 7-18 H GLOMERULAR FILTRATION RATE (test code = GFR) >=60 max estimate estGFR >60 CREATININE (test code = CREAT) 1.3 MG/DL 0.8-1.3 N CALCIUM (test code = CA) 8.9 MG/DL 8.5-10.1 N Completed by Nursing: NOCREATINE KINASE (CK)2021-02-04 14:03:00* Test Item Value Reference Range Interpretation Comme nts CREATINE KINASE (CK) (test c ode = CK) 776 Unit/L 26-192 H Completed by Nursing: [id number] 14:03:00* Test Item Value Reference Range Interpretation Comme nts TROPONIN-I (test code = TROPI) 0.089 NG/ML 0.000-0.045 Negative: </= 0. 045 Positive: >/= 0.046 Correlation with serial results, other cardiac markers, and clinical findings is necessary to determine the clinical significance of this result. Quantitative results using different methodologies should not be compared to one another as numerical results may varyby method. Completed by Nursing: NOCOVID 19 INHOUSE [id number] 13:50:00* Test Item Value Reference Range Interpretation Comme nts COVID 19 INHOUSE AG (test code = [id number]) NEGATIVE Negative Per customer advisor specialist , negative results should be treated aspresumptive and, if inconsistent with clinical signs andsymptoms or necessary for patient management, should betested with an alternative molecular assay. Negative resultsdo not preclude SARS-CoV-2 infection and should not be usedas the sole basis for patient management decisions. Negative results should be considered in the context of apatient's recent exposures, history, presence of clinicalsigns and symptoms consistent with COVID-19. - XR CHEST 1 [id number] 13:44:00 [facility] 1965 Sex: M Name: BRYAN PARADA [facility] : 1965 Age/S: 55 / M [address] Unit #: [id number] Loc: [place] [address] Phys: Isac Rouse DO Acct: [id number] Dis Date: Status: PRE ER PHONE#: [phone] Exam Date: 02/04/2021 1326 FAX #: Reason: chest pain EXAMS: CPT: [id number] XR CHEST 1 V 77631 Fluoro Time: DAP (Gy m2): Air Kerma (mGy): HISTORY: Chest pain Location code: B2 FINDINGS: Frontal view of the chest demonstrates a mildly enlarged cardiomediastinal silhouette, with central venous congestion. The trachea is midline. The lungs are clear. There is no effusion or pneumothorax. The bones are intact. Left pacer device is intact. IMPRESSION: 1. Mild cardiomegaly and centralvenous congestion, without acute decompensation. at 1344 Reported and signed by: Geoff Scott M.D. CC: Isac Rouse DO; Afua DARNELL PAGE 1 Signed Report Name: BRYAN PARADA [facility] : 1965 Age/S: 55 / M [address] [facility] Unit #: [id number] Loc: [place] [address] Phys: Isac Rouse DO Acct: [id number] Dis Date: Status: PRE ER PHONE #: [phone] Exam Date: 02/04/2021 1326 FAX #: Reason: chest pain EXAMS: CPT: [id number] XR CHEST 1 V 81956 Fluoro Time: DAP (Gy m2): Air Kerma (mGy): (Continued) Technologist: Edgar Ruggiero, RT(R) Trnscb Date/Time: 02/04/2021 (578) [id number] Orig Print D/T: S: 02/04/2021 (3786) PAGE 2 Signed ReportCBC W/O [id number] 13:36:00* Test Item Value Reference Range Interpretation Comme nts WHITE BLOOD CELL (test code = WBC) [...] pg 28.9-34.4 L MEAN CELL HGB CONCETRATION ( test code = MCHC) 30.7 G/DL 32.1-34.5 L RED CELL DISTRIBUTION WIDTH (test code = RDW) 17.5 SD 11.5-14.5 H PLATELET COUNT (test code = PLT) 230 K/mm3 150-450 N MEAN PLATELET VOLUME (test c ode = MPV) 10.90 fL 7.0-9.6 H BASIC METABOLIC [id number] 12:58:00* Test Item Value Reference Range Interpretation Comme nts SODIUM (test code = NA) 138 mmol/L 134-147 N POTASSIUM (test code = K) 3.8 mmol/L 3.4-5.0 N CHLORIDE (test code = CL) 104 mmol/L 100-108 N CARBON DIOXIDE (test code = CO2) 26 mmol/L 21-32 N ANION GAP (test code = GAP) 8.0 GAP calc 4.0-15.0 N GLUCOSE (test code = GLU) 137 MG/DL 70-110 H BLOOD UREA NITROGEN (test co de = BUN) 27 MG/DL 7-18 H GLOMERULAR FILTRATION RATE ( test code = GFR) 54 estGFR >60 L CREATININE (test code = CREAT) 1.7 MG/DL 0.8-1.3 H CALCIUM (test code = CA) 9.0 MG/DL 8.5-10.1 N CBC W/AUTO [id number] 12:51:00* Test Item Value Reference Range Interpretation Comme nts WHITE BLOOD CELL (test code = WBC) 5.5 K/mm3 3.5-11.0 N RED BLOOD CELL (test code = RBC) 6.46 M/mm3 4.70-6.10 H HEMOGLOBIN (test code = HGB) 16.2 G/DL 12.3-15.9 H HEMATOCRIT (test code = HCT) 51.8 % 35.8-46.7 H MEAN CELL VOLUME (test code = MCV) 80.2 Fl 86.3-98.9 L MEAN CELL HGB (test code = MCH) 25.1 pg 28.9-34.4 L MEAN CELL HGB CONCETRATION (test code = MCHC) 31.3 G/DL 32.1-34.5 L RED CELL DISTRIBUTION WIDTH (test code = RDW) 17.7 SD 11.5-14.5 H PLATELET COUNT (test code = PLT) 252 K/mm3 150-450 N MEAN PLATELET VOLUME (test c ode = MPV) 10.90 fL 7.0-9.6 H NEUTROPHIL % (test code = NT%) 52.5 % 40-76 N IMMATURE GRANULOCYTE % (test code = IG%) 0.2 % 0.0-5.0 N LYMPHOCYTE % (test code = LY%) 33.8 % 20.5-51.1 N MONOCYTE % (test code = MO%) 10.4 % 1.7-9.3 H EOSINOPHIL % (test code = EO%) 2.7 % 0.0-6.0 N BASOPHIL % (test code = BA%) 0.4 % 0.0-2.0 N NUCLEATED RBC % (test code = NRBC%) 0.0 /100WBC% 0.0-1.0 N NEUTROPHIL # (test code = NT#) 2.9 K/mm3 1.8-7.6 N IMMATURE GRANULOCYTE # (test code = IG#) 0.01 x10 3/uL 0.00-0.03 N LYMPHOCYTE # (test code = LY#) 1.9 K/mm3 0.6-3.0 N MONOCYTE # (test code = MO#) 0.6 K/mm3 0.2-1.5 N EOSINOPHIL # (test code = EO#) 0.2 K/mm3 0.0-0.4 N BASOPHIL # (test code = BA#) 0.0 K/mm3 0.0-0.2 N NUCLEATED RBC # (test code = NRBC#) 0.0 K/mm3 0.00-0.01 N MANUAL DIFF REQUIRED (test c ode = MDIFF) NO DIFF/SCN CRITERIA LIPID PROFILE (CORONARY RISK)2021-01-07 12:26:00* Test Item Value Reference Range Interpretation Comme nts TRIGLYCERIDES (test code = TRIG) 193 MG/DL 0-150 H CHOLESTEROL (test code = CHOL) 183 MG/DL 133-200 N CHOLESTEROL/HDL RATIO (test code = CHOLHDL) 4.69 RATIO See_Comment RISK ASSOCIATED WITH CHOL/HDL RATIOS: RISK MALE FEMALE1/2 AVERAGE 3.43 3.27AVERAGE 4.97 4.442X AVERAGE 9.55 7.053X AVERAGE 23.39 11.04 NOTE THAT THE REFERENCE VALUE IS RELATED TO RISK LEVELS ASRECOMMENDED BY THE [facility]. [Automated message] The system which generated this result transmitted reference range: 0-. The reference range was not used to interpret this result as normal/abnormal. HDL CHOLESTEROL (test code = HDL) 39 MG/DL 40-59 L NON-HDL CHOLESTEROL (test code = NHDL) 144 mg/dL <130 H LIPOPROTEIN LDL (test code = LDL) 119 MG/DL 0-129 N <100 [id number] 0 - 129 NEAR OPTIMAL/ABOVE [id number] - 159 [id number] - 189 HIGH>OR= 190 VERY HIGHNOTE THAT GUIDELINES ARE PROVIDED BY NATIONAL CHOLESTEROLEDUCATION PROGRAM ADULT TREATMENT PANEL III LDL/HDL (test code = LDL/HDL) 3.05 Ratio See_Comment N [Automated messa ge] The system which generated this result transmitted reference range: 1.48-3.22 Avg. The reference range was not used to interpret this result as normal/abnormal. GLYCOSYLATED HEMOGLOBIN [id number] 12:24:00* Test Item Value Reference Range Interpretation Comme nts GLYCOSYLATED HEMOGLOBIN (HA1 C) (test code = GLYHGB) 5.8 % A1C 0.0-5.7 H ESTIMATED AVERAGE GLUCOSE (t est code = EAG) 120 MG/DLest GLUCOSE BEDSIDE [id number] 12:05:00* Test Item Value Reference Range Interpretation Comme nts GLUCOSE BEDSIDE TESTING (cathy t code = GLUBED) 151 mg/dL 70-110 H - XR CHEST 1 [id number] 11:05:00 [facility] 1965 Sex: M Name: BRYAN PARADA [facility] : 1965 Age/S: 55 / M [address] Unit #: [id number] Loc: [place] [address] Phys: Rolando Napier AGAP Acct: [id number] Dis Date: Status: ADM IN PHONE #: [phone] Exam Date: 01/07/2021 1050 FAX #: Reason: Cough EXAMS: CPT: [id number] XR CHEST 1 V 74120 Fluoro Time: DAP (Gy m2): Air Kerma [...] Rolando Napier PAGE 1 Signed Report Name: BRYAN PARADA : 1965 Age/S: 55 / M [address] [facility] Unit #: [id number] Loc: [place] [address] Phys: KarthikeyanRolandoimmanuel GONZALEZ Acct: [id number] Dis Date: Status: ADM IN PHONE #: [phone] Exam Date: 01/07/2021 1050 FAX #: Reason: Cough EXAMS: CPT: [id number] XR CHEST 1 V 81536 Fluoro Time: DAP (Gy m2): Air Kerma (mGy): (Continued) Technologist: Jonna Ramirez, RT(R)(MR) Trnscb Date/Time: 01/07/2021 (110) [email or web address] Orig Print D/T: S: 01/07/2021 (1108) PAGE 2 SignedReport GLUCOSE BEDSIDE [id number] 08:05:00* Test Item Value Reference Range Interpretation Comme nts GLUCOSE BEDSIDE TESTING (cathy t code = GLUBED) 105 mg/dL 70-110 N GLUCOSE BEDSIDE [id number] 21:27:00* Test Item Value Reference Range Interpretation Comme nts GLUCOSE BEDSIDE TESTING (cathy t code = GLUBED) 100 mg/dL 70-110 N GLUCOSE BEDSIDE [id number] 16:40:00* Test Item Value Reference Range Interpretation Comme nts GLUCOSE BEDSIDE TESTING (cathy t code = GLUBED) 89 mg/dL 70-110 N GLUCOSE BEDSIDE [id number] 12:10:00* Test Item Value Reference Range Interpretation Comme nts GLUCOSE BEDSIDE TESTING (cathy t code = GLUBED) 94 mg/dL 70-110 N GLUCOSE BEDSIDE [id number] 07:51:00* Test Item Value Reference Range Interpretation Comme nts GLUCOSE BEDSIDE TESTING (cathy t code = GLUBED) 102 mg/dL 70-110 N GLUCOSE BEDSIDE [id number] 20:30:00* Test Item Value Reference Range Interpretation Comme nts GLUCOSE BEDSIDE TESTING (cathy t code = GLUBED) 98 mg/dL 70-110 N GLUCOSE BEDSIDE [id number] 15:39:00* Test Item Value Reference Range Interpretation Comme nts GLUCOSE BEDSIDE TESTING (cathy t code = GLUBED) 102 mg/dL 70-110 N - CT ANGIO [id number] 14:06:00 [facility] 1965 Sex: M Name: BRYAN PARADA [facility] : 1965 Age/S: 55 / M [address] [facility] Unit #: [id number] Loc: [place] [address] Phys: Anabela Le MD Acct: [id number] Dis Date: Status: ADM IN PHONE #: [phone] Exam Date: 01/05/2021 2407 FAX #: Reason: CVA EXAMS: CPT: [id number] CT ANGIO NECK [address] Exam: - CT ANGIO HEAD, - CT ANGIO NECK Location: B2 HISTORY: CVA, COMPARISON: 01/03/2021 TECHNIQUE: Axial images of the neck and head were obtained after administration of 100 mL Isovue-370intravenous contrast. Images were reformatted to create coronal [...] the aortic arch. No occlusion or significant stenosis at the origins of the innominate, left common carotid and left subclavian arteries are within normal limits. Carotid arteries: Common carotid arteries are normal [...] end vessel luminal diameter per NASCET criteria. Neck:Fascial planes: Nodules are redemonstrated within the thyroid gland. Largest in the left thyroid lobe measures 2.9 cm, unchanged. Further characterization with thyroid ultrasound is recommended. Remaining PAGE 1 Signed Report (CONTINUED) Name: BRYAN PARADA : 1965 Age/S: 55 / M [address] [facility] Unit #: [id number] Loc: [place] [address] Phys: Anabela Le MD Acct: [id number] Dis Date: Status: ADM IN PHONE #: [phone] Exam Date: 01/05/2021 1334 FAX #:Reason: CVA EXAMS: CPT: [id number] CT ANGIO NECK [address] (Continued) visualized fascial planes of theneck are unremarkable. Lymph nodes: There is no cervical adenopathy. Bones: Spondylosis is noted inthe mid cervical spine. There is reversal of [...] carotid arteries: Patent. No significant abnormality. Middle cerebralarteries (M1 and M2 segments): Patent. No significant [...] abnormality. PAGE 2 Signed Report (CONTINUED) Name: BRYAN PARADA : 1965 Age/S: 55 / M [address] [facility] Unit #: [id number] Loc: [place] [address] Phys: Anabela Le MD Acct: [id number] Dis Date: Status: ADM IN PHONE #: [phone] Exam Date: 1335 FAX #: Reason: CVA EXAMS: CPT: [id number] CT ANGIO NECK [address] (Continued) Posterior communicating arteries: Not visualized Distal cerebral arteries: Slight irregularity of distal cerebral arteries which may be in part artifactual although further vasculopathy is not excluded. There is no large vessel occlusion. There is no significant stenosis. No aneurysmal dilatation or vascularmalformation. Dural venous sinuses: No visualized filling defects. Head with contrast: There is no acute intracranial hemorrhage, mass, mass effect, midline shift or extra-axial fluid collection. No abnormal parenchymal or leptomeningeal enhancement is present. The herzog-white differentiation is main tained without evidence for acute major vessel infarct. [...] M.D. PAGE 3 Signed Report (CONTINUED) Name: BRYAN PARADA : 1965 Age/S: 55 / M [address] Unit #: [id number] Loc: [place] [address] Phys: Anabela Le MD Acct: [id number] Dis Date: Status: ADM INPHONE #: [phone] Exam Date: 01/05/2021 1331 FAX #: Reason: CVA EXAMS: CPT: [id number] CT ANGIONECK [address]65 (Continued) CC: Anabela Le MD; Yared Scott MD Technologist:Criss Sahni, RT(R)(CT); .. CTDI: DLP: Trnscb Date/Time: 01/05/2021 (1406) [email or web address] Orig Print D/T: S: 01/05/2021 (3720) PAGE 4 Signed Report- CT ANGIO [id number] 14:06:00 [facility] 1965 Sex: M Name: BRYAN PARADA [facility] : 1965 Age/S: 55 / M [address] [facility] Unit #: [id number] Loc: [place] [address] Phys: Anabela Le MD Acct: [id number] Dis Date: Status: ADM IN PHONE #: [phone] Exam Date: 01/05/2021 1336 FAX #: Reason: CVA EXAMS: CPT: [id number] CT ANGIO HEAD [address] Exam: - CT ANGIO HEAD, - CT ANGIO NECK Location: B2 HISTORY: CVA, COMPARISON: 01/03/2021TECHNIQUE: Axial images of the neck and head [...] the aortic arch. No occlusion or significant stenosis at the origins of the innominate, left common carotid and left subclavian arteries arewithin normal limits. Carotid arteries: Common carotid arteries are normal [...] Remaining PAGE 1 Signed Report (CONTINUED) Name: BRYAN PARADA [facility] : 1965 Age/S: 55 / M [address] [facility] Unit #: [id number] Loc: [place] [address] Phys: Anabela Le MD Acct: [id number] Dis Date: Status: ADM IN PHONE #: [phone] Exam Date: 01/05/2021 1330 FAX #: Reason: CVA EXAMS: CPT: [id number] CT ANGIO HEAD [address] (Continued) visualized fascial planes of the neck are unremarkable. Lymph nodes: There is no cervical adenopathy. Bones: Spondylosis is noted inthe mid cervical spine. There is reversal of [...] carotid arteries: Patent. No significant abnormality. Middle cerebralarteries (M1 and M2 segments): Patent. No significant abnormality. Anterior cerebral arteries (A1 and A2 segments): Patent. No significant abnormality. Anterior communicating artery: Patent. No significant abnormality. Vertebral arteries (V4 segments): Patent. No significant abnormality. Basilar artery and branches: Patent. No significant abnormality. Posterior inferior, anterior inferior and superior cerebellar artery origins are patent. Posterior cerebral artery (P1 and P2 segments): Patent.No significant abnormality. PAGE 2 Signed Report (CONTINUED) Name: BRYAN PARADA : 1965 Age/S: 55 / M [address] [facility] Unit #: [id number] Loc: [place] [address] Phys: Anabela Le MD Acct: [id number] Dis Date: Status: ADM IN PHONE #: [phone] Exam Date: 12/2020 1330 FAX #: Reason: CVA EXAMS: CPT: [id number] CT ANGIO HEAD [address] (Continued) Posterior communicating arteries: Not visualized Distal [...] parenchymal or leptomeningeal enhancement is present. The herzog-white differentiation is maintained without evidence for acute [...] M.D. PAGE 3 Signed Report (CONTINUED) Name: BRYAN PARADA : 1965 Age/S: 55 / M [address] [facility] Unit #: [id number] Loc: [place] [address] Phys: Anabela Le MD Acct: [id number] Dis Date: Status: ADM IN PHONE #: [phone] Exam Date: 01/05/2021 1330 FAX #: Reason: CVA EXAMS: CPT: [id number] CT ANGIO HEAD [address] (Continued) CC: Anabela Le MD; Yared Scott MD Technologist:Criss Sahni RT(R)(CT); .. CTDI: DLP: Trnscb Date/Time: 01/05/2021 (1406) [email or web address] Orig Print D/T: S: 01/05/2021 (1410) PAGE 4 Signed ReportBASIC METABOLIC [id number] 12:38:00* Test Item Value Reference Range Interpretation Comme nts SODIUM (test code = NA) 139 mmol/L 134-147 N POTASSIUM (test code = K) 3.6 mmol/L 3.4-5.0 N CHLORIDE (test code = CL) 107 mmol/L 100-108 N CARBON DIOXIDE (test code = CO2) 23 mmol/L 21-32 N ANION GAP (test code = GAP) 9.0 GAP calc 4.0-15.0 N GLUCOSE (test code = GLU) 98 MG/DL 70-110 N BLOOD UREA NITROGEN (test code = BUN) 16 MG/DL 7-18 N GLOMERULAR FILTRATION RATE (test code = GFR) >=60 max estimate estGFR >60 CREATININE (test code = CREAT) 1.1 MG/DL 0.8-1.3 N CALCIUM (test code = CA) 9.0 MG/DL 8.5-10.1 N CBC W/AUTO [id number] 12:28:00* Test Item Value Reference Range Interpretation Comme nts WHITE BLOOD CELL (test code = WBC) 5.3 K/mm3 3.5-11.0 N RED BLOOD CELL (test code = RBC) 6.41 M/mm3 4.70-6.10 H HEMOGLOBIN (test code = HGB) 16.1 G/DL 12.3-15.9 H HEMATOCRIT (test code = HCT) 50.7 % 35.8-46.7 H MEAN CELL VOLUME (test code = MCV) 79.1 Fl 86.3-98.9 L MEAN CELL HGB (test code = MCH) 25.1 pg 28.9-34.4 L MEAN CELL HGB CONCETRATION (test code = MCHC) 31.8 G/DL 32.1-34.5 L RED CELL DISTRIBUTION WIDTH (test code = RDW) 17.8 SD 11.5-14.5 H PLATELET COUNT (test code = PLT) 234 K/mm3 150-450 N MEAN PLATELET VOLUME (test c ode = MPV) 10.30 fL 7.0-9.6 H NEUTROPHIL % (test code = NT%) 52.6 % 40-76 IMMATURE GRANULOCYTE % (test code = IG%) 0.2 % 0.0-5.0 N LYMPHOCYTE % (test code = LY%) 32.3 % 20.5-51.1 N MONOCYTE % (test code = MO%) 12.0 % 1.7-9.3 H EOSINOPHIL % (test code = EO%) 2.7 % 0.0-6.0 N BASOPHIL % (test code = BA%) 0.2 % 0.0-2.0 N NUCLEATED RBC % (test code = NRBC%) 0.0 /100WBC% 0.0-1.0 N NEUTROPHIL # (test code = NT#) 2.8 K/mm3 1.8-7.6 N IMMATURE GRANULOCYTE # (test code = IG#) 0.01 x10 3/uL 0.00-0.03 N LYMPHOCYTE # (test code = LY#) 1.7 K/mm3 0.6-3.0 N MONOCYTE # (test code = MO#) 0.6 K/mm3 0.2-1.5 N EOSINOPHIL # (test code = EO#) 0.1 K/mm3 0.0-0.4 N BASOPHIL # (test code = BA#) 0.0 K/mm3 0.0-0.2 N NUCLEATED RBC # (test code = NRBC#) 0.0 K/mm3 0.00-0.01 N MANUAL DIFF REQUIRED (test c ode = MDIFF) NO DIFF/SCN CRITERIA PROTHROMBIN [id number] 12:27:00* Test Item Value Reference Range Interpretation Comme nts PT PATIENT (test code = PTP) 12.1 SECONDS 9.3-12.9 N INTERNATIONAL NORMAL RATIO (test code = INR) 1.08 INR Unit 0.8-1.2 N THROMBOPLASTIN TIME [id number] 12:27:00* Test Item Value Reference Range Interpretation Comme nts THROMBOPLASTIN TIME PARTIAL (test code = PTT) 33.0 SECONDS 26-35 N GLUCOSE BEDSIDE [id number] 11:56:00* Test Item Value Reference Range Interpretation Comme nts GLUCOSE BEDSIDE TESTING (cathy t code = GLUBED) 101 mg/dL 70-110 N - CT HEAD/BRAIN W/O [id number] 11:53:00 [facility] 1965 Sex: M Name: BRYAN PARADA [facility] : 1965 Age/S: 55 / M [address] [facility] Unit #: [id number] Loc: [place] [address] Phys: Susan Conway MD Acct: [id number] Dis Date: Status: ADM IN PHONE#: [phone] Exam Date: 01/05/2021 1139 FAX #: Reason: left sided weakness EXAMS: CPT: [id number] HEAD/BRAIN W/O CONT 30292 EXAM: CT Head without contrast Location: B2 HISTORY: Left-sided weakness, CVA COMPARISON: 01/03/2021 TECHNIQUE: Multiple transaxial images of the brain were obtained without intravenous contrast. Images were reformatted to create coronal and sagittal reconstructions. Oneor more of the following dose reduction techniques were used: Automated exposure control, adjustment of the mA and/or kV according to patient size, and/or utilization of iterative reconstruction technique. DLP: 804 mGy-cm. FINDINGS: There is no acute intracranial hemorrhage. There is no mass, mass effect, midline shift or extra- axial fluid collection. Brain parenchymal volume and ventricular caliber are within normal limits. Herzog-white differentiation is maintained. There is no evidence [...] air cells. Preliminary findings were given to YARELIS Zuñiga in the IMU at 1151 hours PAGE 1 Signed Report (CONTINUED) Name: BRYAN PARADA [facility] : 1965 Age/S: 55 / M [address] [facility] Unit #: [id number] Loc: [place] [address] Phys: Susan Conway MD Acct: [id number] Dis Date: Status: ADM IN PHONE #: [phone] Exam Date: 1137 FAX #: Reason: left sided weakness EXAMS: CPT: [id number] CT HEAD/BRAIN W/O CONT 70281 (Continued) on 01/05/2021 FOR INTERNAL CODING PURPOSES ONLY RESULT CODE: CVR at 1153 Reported and signedby: Diego Paez M.D. CC: Susan Conway MD; Yared Scott MD Technologist:Criss Sahni RT(R)(CT); .. CTDI: DLP: Trnscb Date/Time: 01/05/2021 (1153) [email or web address] Orig Print D/T: S: 01/05/2021 (0677) PAGE 2 Signed ReportGLUCOSE BEDSIDE TESTING 2021-01-05 07:54:00* Test Item Value Reference Range Interpretation Comme nts GLUCOSE BEDSIDE TESTING (cathy t code = GLUBED) 118 mg/dL 70-110 H GLUCOSE BEDSIDE [id number] 21:52:00* Test Item Value Reference Range Interpretation Comme nts GLUCOSE BEDSIDE TESTING (cathy t code = GLUBED) 98 mg/dL 70-110 N GLUCOSE BEDSIDE [id number] 15:47:00* Test Item Value Reference Range Interpretation Comme nts GLUCOSE BEDSIDE TESTING (cathy t code = GLUBED) 124 mg/dL 70-110 H GLUCOSE BEDSIDE [id number] 11:34:00* Test Item Value Reference Range Interpretation Comme nts GLUCOSE BEDSIDE TESTING (cathy t code = GLUBED) 107 mg/dL 70-110 N GLUCOSE BEDSIDE [id number] 07:37:00* Test Item Value Reference Range Interpretation Comme nts GLUCOSE BEDSIDE TESTING (cathy t code = GLUBED) 109 mg/dL 70-110 N BASIC METABOLIC [id number] 04:53:00* Test Item Value Reference Range Interpretation Comme nts SODIUM (test code = NA) 142 mmol/L 134-147 N POTASSIUM (test code = K) 4.3 mmol/L 3.4-5.0 N CHLORIDE (test code = CL) 109 mmol/L 100-108 H CARBON DIOXIDE (test code = CO2) 27 mmol/L 21-32 N ANION GAP (test code = GAP) 6.0 GAP calc 4.0-15.0 N GLUCOSE (test code = GLU) 98 MG/DL 70-110 N BLOOD UREA NITROGEN (test code = BUN) 22 MG/DL 7-18 H GLOMERULAR FILTRATION RATE (test code = GFR) >=60 max estimate estGFR >60 CREATININE (test code = CREAT) 1.2 MG/DL 0.8-1.3 N CALCIUM (test code = CA) 8.7 MG/DL 8.5-10.1 N [id number] 04:53:00* Test Item Value Reference Range Interpretation Comme nts PHOSPHOROUS (test code = PHOS) 3.8 MG/DL 2.5-4.9 N [id number] 04:53:00* Test Item Value Reference Range Interpretation Comme nts MAGNESIUM (test code = MAG) 2.1 MG/DL 1.8-2.4 N NT PRO-BRAIN NATRIURETIC [id number] 04:53:00* Test Item Value Reference Range Interpretation Comme nts NT PRO-BRAIN NATRIURETIC PEP TI (test code = PROBNP) 753 PG/ML 0-100 H BASIC METABOLIC [id number] 04:47:00* Test Item Value Reference Range Interpretation Comme nts SODIUM (test code = NA) 142 mmol/L 134-147 N POTASSIUM (test code = K) 4.3 mmol/L 3.4-5.0 N CHLORIDE (test code = CL) 109 mmol/L 100-108 H CARBON DIOXIDE (test code = CO2) 27 mmol/L 21-32 N ANION GAP (test code = GAP) 6.0 GAP calc 4.0-15.0 N GLUCOSE (test code = GLU) 98 MG/DL 70-110 N BLOOD UREA NITROGEN (test co de = BUN) 22 MG/DL 7-18 H GLOMERULAR FILTRATION RATE ( test code = GFR) estGFR >60 CREATININE (test code = CREAT) MG/DL 0.8-1.3 CALCIUM (test code = CA) 8.7 MG/DL 8.5-10.1 N [id number] 04:47:00* Test Item Value Reference Range Interpretation Comme nts PHOSPHOROUS (test code = PHOS) MG/DL 2.5-4.9 [id number] 04:47:00* Test Item Value Reference Range Interpretation Comme nts MAGNESIUM (test code = MAG) 2.1 MG/DL 1.8-2.4 N NT PRO-BRAIN NATRIURETIC [id number] 04:47:00* Test Item Value Reference Range Interpretation Comme nts NT PRO-BRAIN NATRIURETIC PEP TI (test code = PROBNP) PG/ML 0-100 CBC W/AUTO [id number] 04:34:00* Test Item Value Reference Range Interpretation Comme nts WHITE BLOOD CELL (test code = WBC) 4.9 K/mm3 3.5-11.0 N RED BLOOD CELL (test code = RBC) 5.52 M/mm3 4.70-6.10 N HEMOGLOBIN (test code = HGB) 13.9 G/DL 12.3-15.9 N HEMATOCRIT (test code = HCT) 45.0 % 35.8-46.7 N MEAN CELL VOLUME (test code = MCV) 81.5 Fl 86.3-98.9 L MEAN CELL HGB (test code = MCH) 25.2 pg 28.9-34.4 L MEAN CELL HGB CONCETRATION (test code = MCHC) 30.9 G/DL 32.1-34.5 L RED CELL DISTRIBUTION WIDTH (test code = RDW) 16.3 SD 11.5-14.5 H PLATELET COUNT (test code = PLT) 188 K/mm3 150-450 N MEAN PLATELET VOLUME (test c ode = MPV) 10.40 fL 7.0-9.6 H NEUTROPHIL % (test code = NT%) 44.5 % 40-76 N IMMATURE GRANULOCYTE % (test code = IG%) 0.2 % 0.0-5.0 N LYMPHOCYTE % (test code = LY%) 41.3 % 20.5-51.1 N MONOCYTE % (test code = MO%) 11.3 % 1.7-9.3 H EOSINOPHIL % (test code = EO%) 2.5 % 0.0-6.0 N BASOPHIL % (test code = BA%) 0.2 % 0.0-2.0 N NUCLEATED RBC % (test code = NRBC%) 0.0 /100WBC% 0.0-1.0 N NEUTROPHIL # (test code = NT#) 2.2 K/mm3 1.8-7.6 N IMMATURE GRANULOCYTE # (test code = IG#) 0.01 x10 3/uL 0.00-0.03 N LYMPHOCYTE # (test code = LY#) 2.0 K/mm3 0.6-3.0 N MONOCYTE # (test code = MO#) 0.6 K/mm3 0.2-1.5 N EOSINOPHIL # (test code = EO#) 0.1 K/mm3 0.0-0.4 N BASOPHIL # (test code = BA#) 0.0 K/mm3 0.0-0.2 N NUCLEATED RBC # (test code = NRBC#) 0.0 K/mm3 0.00-0.01 N MANUAL DIFF REQUIRED (test c ode = MDIFF) NO DIFF/SCN CRITERIA GLUCOSE BEDSIDE [id number] 22:32:00* Test Item Value Reference Range Interpretation Comme nts GLUCOSE BEDSIDE TESTING (cathy t code = GLUBED) 88 mg/dL 70-110 N GLUCOSE BEDSIDE [id number] 17:59:00* Test Item Value Reference Range Interpretation Comme nts GLUCOSE BEDSIDE TESTING (cathy t code = GLUBED) 97 mg/dL 70-110 N - XR CHEST 1 [id number] 17:25[facility] 1965 Sex: M Name: BRYAN PARADA [facility] : 1965 Age/S: 55 / M [id number] [place] Unit #: [id number] Loc: [place] [address] Phys: Rolando Napier Acct: [id number] Dis Date: Status: ADM IN PHONE #: [phone] Exam Date: 01/03/2021 1518 FAX #: Reason: Dyspnea EXAMS: CPT: [id number] XR CHEST 1 V 25478 Fluoro Time: DAP (Gy m2): Air Kerma (mGy): EXAM: CHEST ONE VIEW INDICATION: Dyspnea LOCATION: B2 COMPARISON: November 29, 2020 TECHNIQUE: AP view of the chest FINDINGS: The heart size is enlarged. There is a cardiac pacing device in the left chest with no apparent discontinuity of the leads. There are diffuse congestive changes bilaterally. No pneumothorax or pleural effusion is identi fied. The osseous structures are normal. IMPRESSION: Cardiomegaly with diffuse congestive changes bilaterally. at 1722 Reported and signed by: Cindy Zabala M.D. CC: Yared Scott MD; Rolando Napier PAGE 1 Signed Report Name: BRYAN PARADA [facility] : 1965 Age/S: 55 / M [address] [facility] Unit #: [id number] Loc: [place] [address] Phys: Rolando Napier AGACNP Acct: [id number] Dis Date: Status: ADMIN PHONE #: [phone] Exam Date: 01/03/2021 1518 FAX #: Reason: Dyspnea EXAMS: CPT: [id number] XR CHEST 1 V 76352 Fluoro Time: DAP (Gy m2): Air Kerma (mGy): (Continued) Technologist: Polly Mcnamara, RT(R)(CT); Shahnaz Rider, RT(R) Trnscb Date/Time: 01/03/2021 (1724) [id number] Orig Print D/T: S: 01/03/2021 (0970) PAGE 2 Signed ReportBASIC METABOLIC [id number] 14:57:00* Test Item Value Reference Range Interpretation Comme nts SODIUM (test code = NA) 142 mmol/L 134-147 N POTASSIUM (test code = K) 3.8 mmol/L 3.4-5.0 N CHLORIDE (test code = CL) 107 mmol/L 100-108 N CARBON DIOXIDE (test code = CO2) 26 mmol/L 21-32 N ANION GAP (test code = GAP) 9.0 GAP calc 4.0-15.0 N GLUCOSE (test code = GLU) 100 MG/DL 70-110 N BLOOD UREA NITROGEN (test code = BUN) 26 MG/DL 7-18 H GLOMERULAR FILTRATION RATE (test code = GFR) >=60 max estimate estGFR >60 CREATININE (test code = CREAT) 1.4 MG/DL 0.8-1.3 H CALCIUM (test code = CA) 8.9 MG/DL 8.5-10.1 N Completed by Nursing: [id number] 14:57:00* Test Item Value Reference Range Interpretation Comme nts TROPONIN-I (test code = TROPI) 0.020 NG/ML 0.000-0.045 N Negative: </= 0. 045 Positive: >/= 0.046 Correlation with serial results, other cardiac markers, and clinical findings is necessary to determine the clinical significance of this result. Quantitative results using different methodologies should not be compared to one another as numerical results may varyby method. Completed by Nursing: NOCOVID 19 INHOUSE [id number] 14:55:00* Test Item Value Reference Range Interpretation Comme nts COVID 19 INHOUSE AG (test code = [id number]) NEGATIVE Negative Per customer advisor specialist , negative results should be treated aspresumptive and, if inconsistent with clinical signs andsymptoms or necessary for patient management, should betested with an alternative molecular assay. Negative resultsdo not preclude SARS-CoV-2 infection and should not be usedas the sole basis for patient management decisions. Negative results should be considered in the context of apatient's recent exposures, history, presence of clinicalsigns and symptoms consistent with COVID-19. Spec Comments: NPROTHROMBIN [id number] 14:54:00* Test Item Value Reference Range Interpretation Comme nts PT PATIENT (test code = PTP) 11.0 SECONDS 9.3-12.9 N INTERNATIONAL NORMAL RATIO (test code = INR) 0.98 INR Unit 0.8-1.2 N THROMBOPLASTIN TIME [id number] 14:54:00* Test Item Value Reference Range Interpretation Comme nts THROMBOPLASTIN TIME PARTIAL (test code = PTT) 30.0 SECONDS 26-35 N - CT ANGIO [id number] 14:53:00 [facility] 1965 Sex: M Name: BRYAN PARADA [facility] : 1965 Age/S: 55 / M [address] [facility] Unit #: [id number] Loc: [place] [address] Phys: Musa Alfaro DO Acct: [id number] Dis Date: Status: REG ER PHONE#: [phone] Exam Date: 01/03/2021 1425 FAX #: Reason: left sided weakness EXAMS: CPT: [id number] CT ANGIO HEAD [address]390 B2 - CT ANGIO NECK, - CT [...] patient size, and/or iterative reconstruction. COMPARISON: None FINDINGS:CTA NECK: The imaged aortic arch is normal. [...] Anterior and middle cerebral arteries are normal bilaterall y. The anterior communicating artery is patent. PAGE 1 Signed Report (CONTINUED) Name: BRYAN PARADA [facility] Cony : 1965 Age/S: 55 / M [address] [facility] Unit #: [id number] Loc: [place] [address] Phys: Musa Alfaro DO Acct: [id number] Dis Date: Status: REG ER PHONE #: [phone] Date: 01/03/2021 1425 FAX #: Reason: left sided weakness EXAMS: CPT: [id number] CT ANGIO HEAD 70 496 (Continued) Both posterior cerebral arteries are normal. The vertebral arteries are patent and codominant. The basilar artery and origins of the bilateral posterior inferior cerebellar arteries, anterior inferior cerebellar arteries, and superior cerebellar arteries are normal. No saccular aneurysm, proximal arterial cut off, intra-arterial clot, or hemodynamically significant intracranial arterial stenosis is present. Maximum intensity projection images confirm these findings. IMPRESSION:Normal head and neck CTA. at 1453 Reported and signed by: Dagoberto Mayer M.D. CC: Musa Alfaro DO Technologist:Shahnaz Rider, RT(R) CTDI: DLP: Trnscb Date/Time: 01/03/2021 (209) [email or web address] Orig Print D/T: S: 01/03/2021 (5586) PAGE 2 Signed Report- CT ANGIO [id number] 14:53:00 [facility] 1965 Sex: M Name: BRYAN PARADA [facility] : 1965 Age/S: 55 / M [address] [facility] Unit #: [id number] Loc: [place] [address] Phys: Musa Alfaro DO Acct: [id number] Dis Date: Status: REG ER PHONE #: [phone] Exam Date: 01/03/2021 1429 FAX #: Reason: left sided weakness EXAMS: CPT: [id number] CT ANGIO NECK [address] B2 - CT ANGIO NECK, - CT ANGIO HEAD HISTORY: left sided weakness TECHNIQUE: Axial CT images were obtained from the aortic arch to the skull vertex after intravenous contrast utilizing CTA protocol. Maximum intensity projection images were created from the data set. One or moreof the following dose reduction [...] of arterial dissection, significant stenosis, occlusion, extravasation ofcontrast material, arteriovenous fistula or pseudoaneurysm. Maximum intensity projection images confirm these findings. CTA HEAD: The petrous, cavernous, and supraclinoid segments of the bilateral internal carotid arteries are normal. The ophthalmic artery origins are visualized and normal. The posterior communicating arteries are patent. Anterior and middle cerebral arteries are normal bilaterall y. The anterior communicating artery is patent. PAGE 1 Signed Report (CONTINUED) Name: BRYAN PARADA : 1965 Age/S: 55 / M [address] [facility] Unit #: [id number] Loc: [place] [address] Phys: Musa Alfaro DO Acct: [id number] Dis Date: Status: REG ER PHONE #: [phone] Exam Date: 01/03/2021 1429 FAX #: Reason: left sided weakness EXAMS: CPT: [id number] CT ANGIO NECK [address] (Continued) Both posterior cerebral arteries are normal. [...] Dagoberto Mayer M.D. CC: Musa Alfaro DO Technologist:Shahnaz Rider RT(R) CTDI:DLP: Trnscb Date/Time: 01/03/2021 (145) VikramVB7 Orig Print D/T: S: 01/03/2021 (4094) PAGE 2 Signed ReportCBC W/O [id number] 14:32:00* Test Item Value Reference Range Interpretation Comme nts WHITE BLOOD CELL (test code = WBC) [...] pg 28.9-34.4 L MEAN CELL HGB CONCETRATION ( test code = MCHC) 30.8 G/DL 32.1-34.5 L RED CELL DISTRIBUTION WIDTH (test code = RDW) 16.6 SD 11.5-14.5 H PLATELET COUNT (test code = PLT) 198 K/mm3 150-450 N MEAN PLATELET VOLUME (test c ode = MPV) 10.30 fL 7.0-9.6 H - CT HEAD/BRAIN W/O [id number] 14:20:00 [facility] 1965 Sex: M Name: BRYAN PARADA [facility] : 1965 Age/S: 55 / M [address] [facility] Unit #: [id number] Loc: [place] [address] Phys: Musa Alfaro DO Acct: [id number] Dis Date: Status: PRE ER PHONE #: [phone] Exam Date: 01/03/2021 3439 FAX #: Reason: Code Stroke EXAMS: CPT: [id number] CT HEAD/BRAIN W/O CONT 37320 EXAMINATION: Head CT without contrast INDICATION: Code stroke COMPARISON: 11/29/2020 LOCATION: S17 TECHNIQUE: Axial noncontrast head CT was performed. Sagittal and coronal reformatted images were created. CT radiation dose optimization is achieved for this examination by the use of a CT protocol in accordance with ACR practice guidelines and adherence to customer advisor specialist recomme ndations. DLP: 836 mGy-cm. FINDINGS: Mild-moderate supratentorial white matter hypodensities which may represent chronic microvascular ischemic changes although nonspecific. No mass effect, intracranial hemorrhage, or extra-axial fluid collection. No CT evidence of acute cortical infarct. Prosthetic left globe. Unremarkable right orbit. Imaged paranasal sinuses and mastoid air cells are clear. Noacute osseous abnormality is identified. IMPRESSION: No acute intracranial abnormality identified. Discussed with Dr. Alfaro at 1419 on 01/03/2021. Electronically Signed by Gala Garibay on 01/03/2021 at 1420 Reported and signed by: Vernon Garibay M.D. CC: Musa Alfaro DO Technologist:Juan Hernandez, RT(R)(CT); [place] CTDI: DLP: Trnscb Date/Time: 01/03/2021 (1420) [email or web address] Orig Print D/T: S: 01/03/2021 (9907) PAGE 1 Signed ReportGLUCOSE BEDSIDE [id number] 11:35:00* Test Item Value Reference Range Interpretation Comme nts GLUCOSE BEDSIDE TESTING (cathy t code = GLUBED) 115 MG/DL 70-119 N CBC W/AUTO [id number] 09:54:00* Test Item Value Reference Range Interpretation Comme nts WHITE BLOOD CELL (test code = WBC) 4.9 K/mm3 4.1-12.1 N RED BLOOD CELL (test code = RBC) 6.10 M/mm3 3.8-5.5 H HEMOGLOBIN (test code = HGB) 15.1 G/DL 10.6-15.8 N HEMATOCRIT (test code = HCT) 49.2 % 31.8-47.4 H MEAN CELL VOLUME (test code = MCV) 80.7 fL 80.1-101.1 N MEAN CELL HGB (test code = MCH) 24.8 pg 25.3-35.3 L MEAN CELL HGB CONCETRATION ( test code = MCHC) 30.7 G/DL 32.7-35.1 L RED CELL DISTRIBUTION WIDTH (test code = RDW) 18.2 % 12.2-16.4 H RED CELL DISTRIBUTION WIDTH (test code = RDW-SD) 50.4 fL 35.1-43.9 H PLATELET COUNT (test code = PLT) 220 K/mm3 155-337 N MEAN PLATELET VOLUME (test c ode = MPV) 10.5 fL 7.6-10.4 H GRANULOCYTE % (test code = GR%) 53.9 % 37.8-82.6 N IMMATURE GRANULOCYTE % (test code = IG%) 0.4 % 0.0-2.0 N LYMPHOCYTE % (test code = LY%) 34.5 % 14.1-45.4 N MONOCYTE % (test code = MO%) 9.4 % 2.5-11.7 N EOSINOPHIL % (test code = EO%) 1.6 % 0.0-6.2 N BASOPHIL % (test code = BA%) 0.2 % 0.0-2.6 N NUCLEATED RBC % (test code = NRBC%) 0.0 /100WBC% 0.0-1.0 N GRANULOCYTE # (test code = GR#) 2.62 k/mm3 2.0-13.7 N IMMATURE GRANULOCYTE # (test code = IG#) 0.02 K/mm3 0.00-0.03 N LYMPHOCYTE # (test code = LY#) 1.68 K/mm3 0.6-3.8 N MONOCYTE # (test code = MO#) 0.46 K/mm3 0.11-0.59 N EOSINOPHIL # (test code = EO#) 0.08 K/mm3 0.0-0.4 N BASOPHIL # (test code = BA#) 0.01 K/mm3 0.0-0.1 N NUCLEATED RBC # (test code = NRBC#) 0.00 K/mm3 0.00-0.05 N RECOLLECTGLUCOSE BEDSIDE [id number] 07:34:00* Test Item Value Reference Range Interpretation Comme nts GLUCOSE BEDSIDE TESTING (cathy t code = GLUBED) 116 MG/DL 70-119 N BASIC METABOLIC [id number] 06:24:00* Test Item Value Reference Range Interpretation Comme nts SODIUM (test code = NA) 136.0 mmol/L 133-144 N POTASSIUM (test code = K) 4.1 mmol/L 3.5-5.1 N CHLORIDE (test code = CL) 106 mmol/L 95-105 H CARBON DIOXIDE (test code = CO2) 23 mmol/L 21-32 N ANION GAP (test code = GAP) 7.0 GAP calc 4.0-15.0 N GLUCOSE (test code = GLU) 97 MG/DL 70-110 N BLOOD UREA NITROGEN (test code = BUN) 18 MG/DL 7-18 N CREATININE (test code = CREAT) 1.10 MG/DL 0.55-1.30 N Results may be depressed if patient is takingN-Acetylcystei ne (NAC) and Metamizole (Dipyrone). CALCIUM (test code = CA) 8.6 MG/DL 8.5-10.1 N INDEX HEMOLYSIS (test code = HEMINDEX) 4 SMALL 50-200 MG Index/DL See_Comment A [Automated message] The system which generated this result transmitted reference range: 1 NORMAL. The reference range was not used to interpret this result as normal/abnormal. INDEX ICTERIC (test code = ICTINDEX) 1 NORMAL <2 MG Index/DL See_Comment [Automated message] The system which generated this result transmitted reference range: 1 NORMAL. The reference range was not used to interpret this result as normal/abnormal. INDEX LIPEMIA (test code = LIPINDEX) 1 NORMAL <50 MG Index/DL See_Comment [Automated message] The system which generated this result transmitted reference range: 1 NORMAL. The reference range was not used to interpret this result as normal/abnormal. [id number] 06:24:00* Test Item Value Reference Range Interpretation Comme nts MAGNESIUM (test code = MAG) 2.3 MG/DL 1.6-2.6 N GLUCOSE BEDSIDE [id number] 20:37:00* Test Item Value Reference Range Interpretation Comme nts GLUCOSE BEDSIDE TESTING (cathy t code = GLUBED) 118 MG/DL 70-119 N GLUCOSE BEDSIDE [id number] 16:47:00* Test Item Value Reference Range Interpretation Comme nts GLUCOSE BEDSIDE TESTING (cathy t code = GLUBED) 100 MG/DL 70-119 N GLUCOSE BEDSIDE [id number] 07:44:00* Test Item Value Reference Range Interpretation Comme nts GLUCOSE BEDSIDE TESTING (cathy t code = GLUBED) 121 MG/DL 70-119 H GLUCOSE BEDSIDE [id number] 19:59:00* Test Item Value Reference Range Interpretation Comme nts GLUCOSE BEDSIDE TESTING (cathy t code = GLUBED) 135 MG/DL 70-119 H GLUCOSE BEDSIDE [id number] 15:51:00* Test Item Value Reference Range Interpretation Comme nts GLUCOSE BEDSIDE TESTING (cathy t code = GLUBED) 85 MG/DL 70-119 N - NM MYOCRD SPECT R/S [id number] 13:57:00 [facility] : 1965 Sex: M----- Patient Name: BRYAN PARADA Unit No: [id number] EXAMS: CPT CODE: [id number] NM MYOCRD SPECT R/S MULT 14529 Patient was brought to the stress test room. Baseline EKG was obtained and EKG and hemodynamics were monitored throughout the procedure. Patient was injected 17.9 mCi of technetium sestamibi at rest and resting images were obtained. Lexiscan was then given per protocol technetium 33.8 mCi was injected at the stress test phase. Perfusion images analysis revealed a medium, moderate, reversible inferior defect, inaddition there is a large fixed lateral defect. Wall motion analysis revealed severe global hypokine sis. EF was calculated at 19%. IMPRESSION: Medium, moderate inferior ischemia. Large lateral scar. Severe global hypokinesis. EF calculated at 19%. at 1357 Reported and signed by: Janiya Huber MD Nuclear Medicine Cardiology exams performedon dual head cameras with appropriate software for processing and reporting. CC: Alexa DELA CRUZ,KIKO,SIVAN Montelongo; Chuckie Olmos DO [facility] Pedro Pablo NAME: TALTaodangpu IMAGING PHYS: MARLENEMANN Belcher Alexa Montelongo APRN,[address] : 1965 AGE: 54 SEX: [place] [address] LOC: B.164 W PHONE #: [phone] EXAM DATE: 12/01/2020 STATUS: ADM IN FAX #: [phone] RAD NO: DC Dt: PAGE 1 Signed Report Patient Name: BRYAN PARADA Unit No: [id number] EXAMS: CPT CODE: [id number] NM MYOCRD SPECT R/S [facility] [address] <Continued> Technologist: Macy Sepulveda Transcribed Date/Time: 12/03/2020 (0093) - t.[email or web address] Orig Print D/T: S: 12/03/2020 (1400) EMILY Chamorro NAME: TALTaodangpu IMAGING PHYS: MARLENEAMNN Belcher Alexa Montelongo APRN[address] : 1965 AGE: 54 SEX: [place] [address] LOC: B.834 W PHONE #: [phone] EXAM DATE: 12/01/2020 STATUS: ADM IN FAX #: [phone] RAD NO: DC Dt: PAGE 2 Signed ReportGLUCOSE BEDSIDE [id number] 11:46:00* Test Item Value Reference Range Interpretation Comme nts GLUCOSE BEDSIDE TESTING (cathy t code = GLUBED) 114 MG/DL 70-119 N [id number] 07:43:00* Test Item Value Reference Range Interpretation Comme nts CKMB (test code = CKMBT) 1.1 NG/ML 1.0-3.6 N MONOCLONAL CKMB METHODOLOGY. [id number] 07:43:00* Test Item Value Reference Range Interpretation Comme nts TROPONIN-I (test code = TROPI) 0.031 NG/ML 0.000-0.045 INTERPRET WITH C AUTION, THIS VALUE EXCEEDS THE LOWER LIMITOF LINEARITY VERIFICATION ESTABLISHED BY THE LABORATORY.An elevated troponin value alone is not sufficient todiagnose a myocardial infarction. Rather, the patient'sclinical presentation (history, physical exam) and ECGshould be used in conjunction with troponin in thediagnostic evaluation of suspected myocardial infarction. Aserial sampling protocol is recommended to facilitate theidentification of temporal changes in troponin levelscharacteristic of [place]. GLUCOSE BEDSIDE [id number] 07:35:00* Test Item Value Reference Range Interpretation Comme nts GLUCOSE BEDSIDE TESTING (cathy t code = GLUBED) 104 MG/DL 70-119 N [id number] 07:24:00* Test Item Value Reference Range Interpretation Comme nts CKMB (test code = CKMBT) NG/ML 1.0-3.6 [id number] 07:24:00* Test Item Value Reference Range Interpretation Comme nts TROPONIN-I (test code = TROPI) 0.031 NG/ML 0.000-0.045 INTERPRET WITH C AUTION, THIS VALUE EXCEEDS THE LOWER LIMITOF LINEARITY VERIFICATION ESTABLISHED BY THE LABORATORY.An elevated troponin value alone is not sufficient todiagnose a myocardial infarction. Rather, the patient'sclinical presentation (history, physical exam) and ECGshould be used in conjunction with troponin in thediagnostic evaluation of suspected myocardial infarction. Aserial sampling protocol is recommended to facilitate theidentification of temporal changes in troponin levelscharacteristic of [place]. BASIC METABOLIC [id number] 06:50:00* Test Item Value Reference Range Interpretation Comme nts SODIUM (test code = NA) 139.0 mmol/L 133-144 N POTASSIUM (test code = K) 3.6 mmol/L 3.5-5.1 N CHLORIDE (test code = CL) 108 mmol/L 95-105 H CARBON DIOXIDE (test code = CO2) 23 mmol/L 21-32 N ANION GAP (test code = GAP) 8.0 GAP calc 4.0-15.0 N GLUCOSE (test code = GLU) 95 MG/DL 70-110 N BLOOD UREA NITROGEN (test code = BUN) 15 MG/DL 7-18 N CREATININE (test code = CREAT) 1.14 MG/DL 0.55-1.30 N Results may be depressed if patient is takingN-Acetylcystei ne (NAC) and Metamizole (Dipyrone). CALCIUM (test code = CA) 8.6 MG/DL 8.5-10.1 N INDEX HEMOLYSIS (test code = HEMINDEX) 1 NORMAL <10 MG Index/DL See_Comment [Automated message] The system which generated this result transmitted reference range: 1 NORMAL. The reference range was not used to interpret this result as normal/abnormal. INDEX ICTERIC (test code = ICTINDEX) 1 NORMAL <2 MG Index/DL See_Comment [Automated message] The system which generated this result transmitted reference range: 1 NORMAL. The reference range was not used to interpret this result as normal/abnormal. INDEX LIPEMIA (test code = LIPINDEX) 1 NORMAL <50 MG Index/DL See_Comment [Automated message] The system which generated this result transmitted reference range: 1 NORMAL. The reference range was not used to interpret this result as normal/abnormal. [id number] 06:50:00* Test Item Value Reference Range Interpretation Comme nts MAGNESIUM (test code = MAG) 2.2 MG/DL 1.6-2.6 N BASIC METABOLIC [id number] 06:24:00* Test Item Value Reference Range Interpretation Comme nts SODIUM (test code = NA) 139.0 mmol/L 133-144 N POTASSIUM (test code = K) 3.6 mmol/L 3.5-5.1 N CHLORIDE (test code = CL) 108 mmol/L 95-105 H CARBON DIOXIDE (test code = CO2) mmol/L 21-32 ANION GAP (test code = GAP) GAP calc 4.0-15.0 GLUCOSE (test code = GLU) MG/DL 70-110 BLOOD UREA NITROGEN (test code = BUN) MG/DL 7-18 CREATININE (test code = CREAT) MG/DL 0.55-1.30 CALCIUM (test code = CA) MG/DL 8.5-10.1 INDEX HEMOLYSIS (test code = HEMINDEX) 1 NORMAL <10 MG Index/DL See_Comment [Automated message] The system which generated this result transmitted reference range: 1 NORMAL. The reference range was not used to interpret this result as normal/abnormal. INDEX ICTERIC (test code = ICTINDEX) 1 NORMAL <2 MG Index/DL See_Comment [Automated message] The system which generated this result transmitted reference range: 1 NORMAL. The reference range was not used to interpret this result as normal/abnormal. INDEX LIPEMIA (test code = LIPINDEX) 1 NORMAL <50 MG Index/DL See_Comment [Automated message] The system which generated this result transmitted reference range: 1 NORMAL. The reference range was not used to interpret this result as normal/abnormal. [id number] 06:24:00* Test Item Value Reference Range Interpretation Comme nts MAGNESIUM (test code = MAG) MG/DL 1.6-2.6 GLUCOSE BEDSIDE [id number] 19:35:00* Test Item Value Reference Range Interpretation Comme nts GLUCOSE BEDSIDE TESTING (cathy t code = GLUBED) 130 MG/DL 70-119 H GLUCOSE BEDSIDE [id number] 16:35:00* Test Item Value Reference Range Interpretation Comme nts GLUCOSE BEDSIDE TESTING (test code = GLUBED) 103 MG/DL 70-119 N Notified Nu rse~ GLUCOSE BEDSIDE [id number] 12:00:00* Test Item Value Reference Range Interpretation Comme nts GLUCOSE BEDSIDE TESTING (test code = GLUBED) 128 MG/DL 70-119 H Notified Nu rse~ GLUCOSE BEDSIDE [id number] 08:28:00* Test Item Value Reference Range Interpretation Comme nts GLUCOSE BEDSIDE TESTING (test code = GLUBED) 123 MG/DL 70-119 H Notified Nu rse~ GLUCOSE BEDSIDE [id number] 19:40:00* Test Item Value Reference Range Interpretation Comme nts GLUCOSE BEDSIDE TESTING (cathy t code = GLUBED) 84 MG/DL 70-119 N GLUCOSE BEDSIDE [id number] 16:53:00* Test Item Value Reference Range Interpretation Comme nts GLUCOSE BEDSIDE TESTING (test code = GLUBED) 100 MG/DL 70-119 N Notified Nu rse~ GLUCOSE BEDSIDE [id number] 13:00:00* Test Item Value Reference Range Interpretation Comme nts GLUCOSE BEDSIDE TESTING (cathy t code = GLUBED) 128 MG/DL 70-119 H GLUCOSE BEDSIDE [id number] 08:35:00* Test Item Value Reference Range Interpretation Comme nts GLUCOSE BEDSIDE TESTING (cathy t code = GLUBED) 95 MG/DL 70-119 N GLUCOSE BEDSIDE [id number] 19:49:00* Test Item Value Reference Range Interpretation Comme nts GLUCOSE BEDSIDE TESTING (cathy t code = GLUBED) 117 MG/DL 70-119 N GLUCOSE BEDSIDE [id number] 16:52:00* Test Item Value Reference Range Interpretation Comme nts GLUCOSE BEDSIDE TESTING (cathy t code = GLUBED) 103 MG/DL 70-119 N GLUCOSE BEDSIDE [id number] 12:30:00* Test Item Value Reference Range Interpretation Comme nts GLUCOSE BEDSIDE TESTING (cathy t code = GLUBED) 121 MG/DL 70-119 H GLUCOSE BEDSIDE [id number] 07:43:00* Test Item Value Reference Range Interpretation Comme nts GLUCOSE BEDSIDE TESTING (cathy t code = GLUBED) 96 MG/DL 70-119 N COMPREHENSIVE METABOLIC [id number] 05:53:00* Test Item Value Reference Range Interpretation Comme nts SODIUM (test code = NA) 137.0 mmol/L 133-144 N POTASSIUM (test code = K) 3.7 mmol/L 3.5-5.1 N CHLORIDE (test code = CL) 106 mmol/L 95-105 H CARBON DIOXIDE (test code = CO2) 25 mmol/L 21-32 N ANION GAP (test code = GAP) 6.0 GAP calc 4.0-15.0 N GLUCOSE (test code = GLU) 98 MG/DL 70-110 N BLOOD UREA NITROGEN (test code = BUN) 17 MG/DL 7-18 N GLOMERULAR FILTRATION RATE (test code = GFR) 63 estGFR >60 The estimated glomerular filtration rate is computed usingpatient race, age, sex, and serum creatinine. If any of theneeded data elements are missing the Laboratory can notcompute an estimation of the glomerular filtration rate.The GFR value units = ml/min/1.73 meter squared. EstimatedGFR values above 60 should be interpreted as >60, not anexact number.--- DRUG DOSAGE ALERT --- Drug dosage adjustments utilize different calculationparameter s. CREATININE (test code = CREAT) 1.42 MG/DL 0.55-1.30 H Results may be depressed if patient is takingN-Acetylcystei ne (NAC) and Metamizole (Dipyrone). TOTAL PROTEIN (test code = PROT) 7.4 G/DL 6.4-8.2 N ALBUMIN (test code = ALB) 3.5 G/DL 3.4-5.0 N ALBUMIN/GLOBULIN RATIO (test code = A/G) 0.9 RATIO 1.2-2.2 L CALCIUM (test code = CA) 8.7 MG/DL 8.5-10.1 N BILIRUBIN TOTAL (test code = BILT) 0.69 MG/DL 0.00-1.00 N BILIRUBIN DIRECT (test code = BILD) 0.17 MG/DL 0.00-0.30 N BILIRUBIN INDIRECT (test code = BILIND) 0.52 MG/DL 0.2-1.3 N SGOT/AST (test code = AST) 13 Unit/L 15-37 L SGPT/ALT (test code = ALT) 15 Unit/L 12-78 N ALKALINE PHOSPHATASE TOTAL (test code = ALKP) 50 Unit/L 45-117 N INDEX HEMOLYSIS (test code = HEMINDEX) 1 NORMAL <10 MG Index/DL See_Comment [Automated message] The system which generated this result transmitted reference range: 1 NORMAL. The reference range was not used to interpret this result as normal/abnormal. INDEX ICTERIC (test code = ICTINDEX) 1 NORMAL <2 MG Index/DL See_Comment [Automated message] The system which generated this result transmitted reference range: 1 NORMAL. The reference range was not used to interpret this result as normal/abnormal. INDEX LIPEMIA (test code = LIPINDEX) 1 NORMAL <50 MG Index/DL See_Comment [Automated message] The system which generated this result transmitted reference range: 1 NORMAL. The reference range was not used to interpret this result as normal/abnormal. LIPID PROFILE (CORONARY RISK)2020-11-30 05:53:00* Test Item Value Reference Range Interpretation Comme nts TRIGLYCERIDES (test code = TRIG) 129 MG/DL 0-150 N Results may be depressed if patient is takingN-Acetylcystei ne (NAC) and Metamizole (Dipyrone). CHOLESTEROL (test code = CHOL) 178 MG/DL 133-200 N CHOLESTEROL/HDL RATIO (test code = CHOLHDL) 4.45 RATIO See_Comment REFERENCE RANGE: MALE FEMALE 1/2 AVG RISK 3.43 3.27 AVG RISK 4.97 4.44 2X AVG RISK 9.55 7.05 3X AVG RISK 23.39 11.04 [Automated message] The system which generated this result transmitted reference range: 0-. The reference range was not used to interpret this result as normal/abnormal. HDL CHOLESTEROL (test code = HDL) 40 MG/DL 40-59 N Results maybe depressed if patient is taking Metamizole(Dipyrone) . NON-HDL CHOLESTEROL (test code = NHDL) 138 mg/dL <130 H Patients with CHD or CHD risk LDL: <70 mg/dL nonHDL: <100 mg/dLPatients with 2+ risk factors LDL: <130 mg/dL nonHDL: <160 mg/dLPatients with 0-1 risk factors LDL: <160 mg/dL nonHDL: <190 mg/dL LIPOPROTEIN LDL (test code = LDL) 112 MG/DL 0-129 N LDL/HDL (test code = LDL/HDL) 2.80 Ratio See_Comment N LDL/HDL RISK ASSESSMENT1.47 One-half average3.22 Average5.03 Two times average6.14 Three times average [Automated message] The system which generated this result transmitted reference range: 1.48-3.22 Avg. The reference range was not used to interpret this result as normal/abnormal. [id number] 05:53:00* Test Item Value Reference Range Interpretation Comme nts MAGNESIUM (test code = MAG) 2.2 MG/DL 1.6-2.6 N COMPREHENSIVE METABOLIC [id number] 05:38:00* Test Item Value Reference Range Interpretation Comme nts SODIUM (test code = NA) 137.0 mmol/L 133-144 N POTASSIUM (test code = K) 3.7 mmol/L 3.5-5.1 N CHLORIDE (test code = CL) 106 mmol/L 95-105 H CARBON DIOXIDE (test code = CO2) mmol/L 21-32 ANION GAP (test code = GAP) GAP calc 4.0-15.0 GLUCOSE (test code = GLU) MG/DL 70-110 BLOOD UREA NITROGEN (test code = BUN) MG/DL 7-18 CREATININE (test code = CREAT) MG/DL 0.55-1.30 TOTAL PROTEIN (test code = PROT) G/DL 6.4-8.2 ALBUMIN (test code = ALB) G/DL 3.4-5.0 ALBUMIN/GLOBULIN RATIO (test code = A/G) RATIO 1.2-2.2 CALCIUM (test code = CA) MG/DL 8.5-10.1 BILIRUBIN TOTAL (test code = BILT) MG/DL 0.00-1.00 BILIRUBIN DIRECT (test code = BILD) MG/DL 0.00-0.30 BILIRUBIN INDIRECT (test code = BILIND) MG/DL 0.2-1.3 SGOT/AST (test code = AST) Unit/L 15-37 SGPT/ALT (test code = ALT) Unit/L 12-78 ALKALINE PHOSPHATASE TOTAL (test code = ALKP) Unit/L 45-117 INDEX HEMOLYSIS (test code = HEMINDEX) 1 NORMAL <10 MG Index/DL See_Comment [Automated message] The system which generated this result transmitted reference range: 1 NORMAL. The reference range was not used to interpret this result as normal/abnormal. INDEX ICTERIC (test code = ICTINDEX) 1 NORMAL <2 MG Index/DL See_Comment [Automated message] The system which generated this result transmitted reference range: 1 NORMAL. The reference range was not used to interpret this result as normal/abnormal. INDEX LIPEMIA (test code = LIPINDEX) 1 NORMAL <50 MG Index/DL See_Comment [Automated message] The system which generated this result transmitted reference range: 1 NORMAL. The reference range was not used to interpret this result as normal/abnormal. LIPID PROFILE (CORONARY RISK)2020-11-30 05:38:00* Test Item Value Reference Range Interpretation Comme nts TRIGLYCERIDES (test code = TRIG) MG/DL 0-150 CHOLESTEROL (test code = CHOL) MG/DL 133-200 CHOLESTEROL/HDL RATIO (test code = CHOLHDL) RATIO See_Comment [Automated message] The system which generated this result transmitted reference range: 0-. The reference range was not used to interpret this result as normal/abnormal. HDL CHOLESTEROL (test code = HDL) MG/DL 40-59 NON-HDL CHOLESTEROL (test code = NHDL) mg/dL <130 LIPOPROTEIN LDL (test code = LDL) MG/DL 0-129 LDL/HDL (test code = LDL/HDL) Ratio See_Comment [Automated messa ge] The system which generated this result transmitted reference range: 1.48-3.22 Avg. The reference range was not used to interpret this result as normal/abnormal. [id number] 05:38:00* Test Item Value Reference Range Interpretation Comme nts MAGNESIUM (test code = MAG) MG/DL 1.6-2.6 GLYCOSYLATED HEMOGLOBIN (HA1C)2020-11-30 05:21:00* Test Item Value Reference Range Interpretation Comme nts GLYCOSYLATED HEMOGLOBIN (HA1 C) (test code = GLYHGB) 5.9 % IS-A1C 4.5-5.6 H Specimen comments: use blood sample in the labComments to Senior Data Warehouse Developer: use blood sample in the labCBC W/AUTO [id number] 05:12:00* Test Item Value Reference Range Interpretation Comme nts WHITE BLOOD CELL (test code = WBC) 5.0 K/mm3 4.1-12.1 N RED BLOOD CELL (test code = RBC) 5.35 M/mm3 3.8-5.5 N HEMOGLOBIN (test code = HGB) 13.9 G/DL 10.6-15.8 N HEMATOCRIT (test code = HCT) 43.8 % 31.8-47.4 N MEAN CELL VOLUME (test code = MCV) 81.9 fL 80.1-101.1 N MEAN CELL HGB (test code = MCH) 26.0 pg 25.3-35.3 N MEAN CELL HGB CONCETRATION ( test code = MCHC) 31.7 G/DL 32.7-35.1 L RED CELL DISTRIBUTION WIDTH (test code = RDW) 18.2 % 12.2-16.4 H RED CELL DISTRIBUTION WIDTH (test code = RDW-SD) 53.0 fL 35.1-43.9 H PLATELET COUNT (test code = PLT) 229 K/mm3 155-337 N MEAN PLATELET VOLUME (test c ode = MPV) 11.2 fL 7.6-10.4 H GRANULOCYTE % (test code = GR%) 47.7 % 37.8-82.6 N IMMATURE GRANULOCYTE % (test code = IG%) 0.2 % 0.0-2.0 N LYMPHOCYTE % (test code = LY%) 40.3 % 14.1-45.4 N MONOCYTE % (test code = MO%) 10.0 % 2.5-11.7 N EOSINOPHIL % (test code = EO%) 1.6 % 0.0-6.2 N BASOPHIL % (test code = BA%) 0.2 % 0.0-2.6 N NUCLEATED RBC % (test code = NRBC%) 0.0 /100WBC% 0.0-1.0 N GRANULOCYTE # (test code = GR#) 2.39 k/mm3 2.0-13.7 N IMMATURE GRANULOCYTE # (test code = IG#) 0.01 K/mm3 0.00-0.03 N LYMPHOCYTE # (test code = LY#) 2.02 K/mm3 0.6-3.8 N MONOCYTE # (test code = MO#) 0.50 K/mm3 0.11-0.59 N EOSINOPHIL # (test code = EO#) 0.08 K/mm3 0.0-0.4 N BASOPHIL # (test code = BA#) 0.01 K/mm3 0.0-0.1 N NUCLEATED RBC # (test code = NRBC#) 0.00 K/mm3 0.00-0.05 N [id number] 00:17:00* Test Item Value Reference Range Interpretation Comme nts CKMB (test code = CKMBT) 1.4 NG/ML 1.0-3.6 N MONOCLONAL CKMB METHODOLOGY. [id number] 00:17:00* Test Item Value Reference Range Interpretation Comme nts TROPONIN-I (test code = TROPI) 0.025 NG/ML 0.000-0.045 N INTERPRET WITH C KASSANDRAION, THIS VALUE EXCEEDS THE LOWER LIMITOF LINEARITY VERIFICATION ESTABLISHED BY THE LABORATORY.An elevated troponin value alone is not sufficient todiagnose a myocardial infarction. Rather, the patient'sclinical presentation (history, physical exam) and ECGshould be used in conjunction with troponin in thediagnostic evaluation of suspected myocardial infarction. Aserial sampling protocol is recommended to facilitate theidentification of temporal changes in troponin levelscharacteristic of [place]. [id number] 23:57:00* Test Item Value Reference Range Interpretation Comme nts CKMB (test code = CKMBT) NG/ML 1.0-3.6 [id number] 23:57:00* Test Item Value Reference Range Interpretation Comme nts TROPONIN-I (test code = TROPI) 0.025 NG/ML 0.000-0.045 N INTERPRET WITH C AUTION, THIS VALUE EXCEEDS THE LOWER LIMITOF LINEARITY VERIFICATION ESTABLISHED BY THE LABORATORY.An elevated troponin value alone is not sufficient todiagnose a myocardial infarction. Rather, the patient'sclinical presentation (history, physical exam) and ECGshould be used in conjunction with troponin in thediagnostic evaluation of suspected myocardial infarction. Aserial sampling protocol is recommended to facilitate theidentification of temporal changes in troponin levelscharacteristic of [place]. GLUCOSE BEDSIDE [id number] 20:50:00* Test Item Value Reference Range Interpretation Comme nts GLUCOSE BEDSIDE TESTING (cathy t code = GLUBED) 126 MG/DL 70-119 H [id number] 20:10:00* Test Item Value Reference Range Interpretation Comme nts CKMB (test code = CKMBT) 1.6 NG/ML 1.0-3.6 N MONOCLONAL CKMB METHODOLOGY. [id number] 20:10:00* Test Item Value Reference Range Interpretation Comme [facility] TROPONIN-I (test code = TROPI) 0.026 NG/ML 0.000-0.045 N INTERPRET WITH C AUTION, THIS VALUE EXCEEDS THE LOWER LIMITOF LINEARITY VERIFICATION ESTABLISHED BY THE LABORATORY.An elevated troponin value alone is not sufficient todiagnose a myocardial infarction. Rather, the patient'sclinical presentation (history, physical exam) and ECGshould be used in conjunction with troponin in thediagnostic evaluation of suspected myocardial infarction. Aserial sampling protocol is recommended to facilitate theidentification of temporal changes in troponin levelscharacteristic of [place]. [id number] 19:57:00* Test Item Value Reference Range Interpretation Comme nts CKMB (test code = CKMBT) NG/ML 1.0-3.6 [id number] 19:57:00* Test Item Value Reference Range Interpretation Comme nts TROPONIN-I (test code = TROPI) 0.026 NG/ML 0.000-0.045 N INTERPRET WITH C AUTION, THIS VALUE EXCEEDS THE LOWER LIMITOF LINEARITY VERIFICATION ESTABLISHED BY THE LABORATORY.An elevated troponin value alone is not sufficient todiagnose a myocardial infarction. Rather, the patient'sclinical presentation (history, physical exam) and ECGshould be used in conjunction with troponin in thediagnostic evaluation of suspected myocardial infarction. Aserial sampling protocol is recommended to facilitate theidentification of temporal changes in troponin levelscharacteristic of [place]. COVID 19 Asymptomatic IH [id number] 18:32:00* Test Item Value Reference Range Interpretation Comme nts COVID 19 Asymptomatic IH AG (test code = COVNONPUIAG) Negative Neg - CT ANGIO [id number] 17:08:00 [facility] : 1965 Sex: M Patient Name: BYRAN PARADA Unit No: [id number] EXAMS: CPT CODE: [id number] CT ANGIO HEAD [address] Dictation location: [facility]. CT ANGIOGRAM OF THE NECK AND HEAD WITH IV CONTRAST; MIP AND 3-D RECONSTRUCTIONSHISTORY: Left sided weakness COMPARISON: None TECHNIQUE: Axial CT images of the neck and head were obtained with coronal and/or sagittal reformatted views. MIP and/or 3-D reconstruction were obtainedof the carotid arteries in the neck and diomede of [place]. Automated exposure control, iterative reconstruction [...] air cells are clear. Mild to moderate cervical [...] is limited. No definite occlusion or aneurysm. [facility] TrudyeNAME: [address] PHYS: ARVIN. - Chuckie [place], [place] [address] : 1965 AGE: 54 SEX: M LOC: LISA PHONE #: [phone] EXAM DATE: 11/29/2020 STATUS: REG ER FAX #: [phone] RAD #: D/C DT PAGE 1 Signed Report (CONTINUED) Patient Name: BRYAN PARADA Unit No: [id number] EXAMS: CPT CODE: [id number] CT ANGIO HEAD [address] <Continued> at 1708 Reported and signed by: Uriah Moran MD CC: Chuckie Olmos DO Dictated Date/Time: 11/29/2020(1707) Technologist: Luisana Mederos CTDI: 73.04 DLP: 2044.21 Trnscrpt: 11/29/2020 (1707) [email or web address] [facility] [place] NAME: [address] PHYS: RADAMES - Chuckie [place], [place] [address] : 1965 AGE: 54 SEX: M LOC: B.ERS PHONE #: [phone] EXAM DATE: 11/29/2020 STATUS: REG ER FAX #: [phone] RAD #: D/C DT PAGE 2 Signed Report Patient Name: BRYAN PARADA Unit No: [id number] EXAMS: CPT CODE: [id number] CT ANGIO HEAD [address] <Continued> Orig Print D/T: S: 11/29/2020 (1711) [facility] Pedro Pablo NAME: BRYAN PARADA [address] [place] [address] PHYS: RADAMES - Chuckie [place], [place] [address] : 1965 AGE: 54 SEX: MACCT NO: [id number] LOC: B.ERS PHONE #: [phone] EXAM DATE: 11/29/2020 STATUS: REG ER FAX #:[phone] RAD #: D/C DT PAGE 3 Signed Report- CT ANGIO [id number] 17:08:00 [facility] : 1965 Sex: M Patient Name: BRYAN PARADA Unit No: [id number] EXAMS: CPT CODE: [id number] CT ANGIO NECK [address] Dictation location: H37. CT ANGIOGRAM OF THE NECK AND HEAD WITH IV CONTRAST; MIP AND 3-D RECONSTRUCTIONS HISTORY: Left sided weakness COMPARISON: None TECHNIQUE: Axial CT images of the neck and head were obtained with coronal and/or sagittal reformatted views. MIP and/or 3-D reconstruction were obtainedof the carotid arteries in the neck and diomede of [place]. Automated exposure control, iterative reconstruction [...] air cells are clear. Mild to moderate cervical [...] is limited. No definite occlusion or aneurysm. [facility] [place] NAME: BRYAN PARADA [address] [place] [address] PHYS: ARVIN - Chuckie Olmos [place], [place] [address] : 1965 AGE: 54 SEX: M LOC: B.ERS PHONE #: [phone] EXAM DATE: 11/29/2020 STATUS: REG ER FAX #: [phone] RAD #: D/C DT PAGE 1 Signed Report (CONTINUED) Patient Name: BRYAN PARADA Unit No: [id number] EXAMS: CPT CODE: [id number] CT ANGIO NECK [address] <Continued> at 1708 Reported and signed by: Uriah Moran MD CC: Chuckie Olmos DO Dictated Date/Time: 11/29/2020 (1707) Technologist: Luisana Mederos CTDI: 0 DLP: 0 Trnscrpt: 11/29/2020 (170) [email or web address] EMILY [place] NAME: BRYAN PARADA [address] [place] [address] PHYS: ARVIN. - Chuckie [place], [place] : 1965 AGE: 54 SEX: M LOC: B.ERS PHONE #: [phone] EXAM DATE: 11/29/2020 STATUS: REG ER FAX #: [phone] RAD #: D/C DT PAGE 2 Signed Report Patient Name: BRYNA PARADA Unit No: [id number] EXAMS: CPT CODE: [id number] CT ANGIO NECK [address] <Continued>Orig Print D/T: S: 11/29/2020 (9048) [place] NAME: [facility] PHYS: ARVIN. - Chuckie [place], [place] [address] : 1965 AGE: 54 SEX: M LOC: B.ERS PHONE #: [phone] EXAM DATE: 11/29/2020 STATUS: REG ER FAX #: [phone] RAD #: D/C DT PAGE 3 Signed Report- XR CHEST 1 V 2020-11-29 11:48:00 [facility] 1965 Sex: M Name: BRYAN PARADA [facility] : 1965 Age/S: 54 / M [address] [place] Unit #: [id number] Loc: [place] [address] Phys: Maximino Ham MD Acct: [id number] Dis Date: Status: REG ER PHONE #: [phone] Exam Date: 11/29/2020 1101 FAX #: Reason: chest pain, stroke symptoms EXAMS: CPT: [id number] XR CHEST 1 V 89626 Fluoro Time: DAP (Gy m2): Air Kerma (mGy): EXAMINATION: - XR CHEST 1V. LOCATION: S17. HISTORY: chest pain, weakness, stroke symptoms. COMPARISON: Chest CT 11/29/20. FINDINGS: Examination is limited due to portable technique and low lung volumes. Cardiac silhouette/Mediastinal contour: Enlargement of cardiac silhouette. Atherosclerotic calcification of aortic arch. Left chest AICD. Lungs: No focal consolidation. No large pleural effusion. Osseous Structures: Milddegenerative changes affect thoracic spine. IMPRESSION: No focal consolidation. at 1148 Reported and signed by: AntkitkumarN. Lucinda M.D. CC: Maximino Ham MD PAGE 1 Signed Report Name: BRYAN PARADA [facility] : 1965 Age/S: 54 / M [address] [place] Unit #: [id number] Loc: [place] [address] Phys: Maximino Ham MD Acct: [id number] Dis Date: Status: REG ER PHONE #: [phone] Exam Date: 11/29/2020 1100 FAX #: Reason: chest pain, stroke symptoms EXAMS: CPT: [id number] XR CHEST 1 V 23600 Fluoro Time: DAP (Gy m2): Air Kerma (mGy): (Continued) Technologist: Bandar Tirado RT(R)(CT) Trnscb Date/Time: 11/29/2020 (1148) VikramANS4 Orig Print D/T: S: 11/29/2020 (0737) PAGE 2 Signed Report- CT ABD PELVIS [id number] 11:20:00 [facility] 1965 Sex: M Name: BRYAN PARADA [facility] : 1965 Age/S: 54 / M [address] [place] Unit #: [id number] Loc: [place] [address] Phys: Maximino Ham MD Acct: [id number] Dis Date: Status: REG ER PHONE #: [phone] Exam Date: 11/29/2020 1046 FAX #: Reason: rule out dissection EXAMS: CPT: [id number] CT ABD PELVIS W/CONT 38204 LOCATION: T18 EXAM: CT CHEST WITH CONTRAST [...] reduction techniques were utilized. Automatic exposure control wasutilized. FINDINGS: Left AICD in place. The heart [...] or hydronephrosis is seen. There is no hydr oureter. Urinary bladder is normal in appearance. Diverticulosis throughout the sigmoid colon without evidence of acute radiculitis. Additional scattered diverticula of the left colon. Abdominal aorta is normal in caliber. No aortic dissection or aneurysm. The bones and peripheral soft tissues areunremarkable. IMPRESSION: No aortic dissection or aneurysm. Mild cardiomegaly. PAGE 1 Signed Report (CONTINUED) Name: BRYAN PARADA [facility] : 1965 Age/S: 54 / M [address] [place] Unit #: [id number] Loc: [place] [address] Phys: Maximino Ham MD Acct: [id number] Dis Date: Status: REG ER PHONE #: [phone] Exam Date: 11/29/2020 1046 FAX #: Reason: rule out dissection EXAMS : CPT: [id number] CT ABD PELVIS W/CONT 22994 (Continued) at 1120 Reported and signed by: Bill Lake M.D. CC: Maximino Ham MD Technologist:Gala Menard, RT(R); Shahnaz CTDI: DLP: Trnscb Date/Time: 11/29/2020 (1120) [email or web address] Orig Print D/T: S: 11/29/2020 (1123) PAGE 2 Signed Report- CT CHEST W/[id number] 11:20:[facility] : 1965 Sex: M Name: BRYAN PARADA [facility] : 1965 Age/S: 54 / M [address] [place] Unit #: [id number] Loc: [place] [address] Phys: Maximino Ham MD Acct: [id number] Dis Date: Status: REG ER PHONE #: [phone] Exam Date: 11/29/2020 1056 FAX #: Reason: rule out dissection EXAMS: CPT: [id number] CT CHEST W/CONTRAST 69456 LOCATION: T18 EXAM: CT CHEST WITH CONTRAST EXAM: CT ABDOMEN AND PELVISWITH CONTRAST INDICATION: Chest pain and weakness, left-sided [...] is mildly enlarged. No pericardial effusion is seen.No aortic dissection or aneurysm is identified. No [...] aneurysm. Mild cardiomegaly. PAGE 1 Signed Report (CO NTINUED) Name: BRYAN PARADA [facility] : 1965 Age/S: 54 / M [address] Unit#: [id number] Loc: [place] [address] Phys: Maximino Ham MD Acct: [id number] Dis Date: Status:REG ER PHONE #: [phone] Exam Date: 11/29/2020 1056 FAX #: Reason: rule out dissection EXAMS: CPT: [id number] CT CHEST W/CONTRAST 53198 (Continued) at 1120 Reported and signed by: Bill Lake M.D. CC: Maximino Ham MD Technologist:Gala Menard, RT(R); Shahnaz CTDI: DLP: Trnscb Date/Time: 11/29/2020 (1120) [email or web address] Orig Print D/T: S: 11/29/2020 (1123) PAGE 2 Signed Report- CT HEAD/BRAIN W/O [id number] 11:15:00 [facility] 1965 Sex: M Name: BRYAN PARADA [facility] : 1965 Age/S: 54 / M [address] [place] Unit #: [id number] Loc: [place] [address] Phys: Maximino Ham MD Acct: [id number] Dis Date: Status: REG ER PHONE #: [phone] Exam Date: 11/29/2020 1045 FAX #: Reason: CVA symptoms EXAMS: CPT: [id number] CTHEAD/BRAIN W/O CONT 64943 EXAM: - CT HEAD/BRAIN W/O CONT INDICATION: [...] Cipriano Norton M.D. CC: Maximino Ham MD Technologist:Shahnaz Rider, RT(R) CTDI: DLP: Trnscb Date/Time: 11/29/2020 (1115) [email or web address] Orig Print D/T:S: 11/29/2020 (1113) PAGE 1 Signed ReportCOMPREHENSIVE METABOLIC [id number] 10:03:00* Test Item Value Reference Range Interpretation Comme nts SODIUM (test code = NA) 141 mmol/L 134-147 N POTASSIUM (test code = K) 4.0 mmol/L 3.4-5.0 N CHLORIDE (test code = CL) 107 mmol/L 100-108 N CARBON DIOXIDE (test code = CO2) 29 mmol/L 21-32 N ANION GAP (test code = GAP) 5.0 GAP calc 4.0-15.0 N GLUCOSE (test code = GLU) 101 MG/DL 70-110 N BLOOD UREA NITROGEN (test co de = BUN) 17 MG/DL 7-18 N GLOMERULAR FILTRATION RATE ( test code = GFR) 59 estGFR >60 L CREATININE (test code = CREAT) 1.6 MG/DL 0.8-1.3 H TOTAL PROTEIN (test code = PROT) 7.8 G/DL 6.4-8.2 N ALBUMIN (test code = ALB) 3.6 G/DL 3.4-5.0 N GLOBULIN (test code = GLOB) 4.2 GM/dL ALBUMIN/GLOBULIN RATIO (test code = A/G) 0.9 RATIO 1.2-2.2 L CALCIUM (test code = CA) 8.8 MG/DL 8.5-10.1 N BILIRUBIN TOTAL (test code = BILT) 0.70 MG/DL 0.2-1.2 N SGOT/AST (test code = AST) 15 Unit/L 15-37 N SGPT/ALT (test code = ALT) 15 Unit/L 12-78 N ALKALINE PHOSPHATASE TOTAL ( test code = ALKP) 65 Unit/L 50-136 N Completed by Nursing: [id number] 10:03:00* Test Item Value Reference Range Interpretation Comme nts TROPONIN-I (test code = TROPI) 0.021 NG/ML 0.000-0.045 N Negative: </= 0. 045 Positive: >/= 0.046 Correlation with serial results, other cardiac markers, and clinical findings is necessary to determine the clinical significance of this result. Quantitative results using different methodologies should not be compared to one another as numerical results may varyby method. Completed by Nursing: NOCBC W/AUTO [id number] 09:45:00* Test Item Value Reference Range Interpretation Comme nts WHITE BLOOD CELL (test code = WBC) 5.4 K/mm3 3.5-11.0 N RED BLOOD CELL (test code = RBC) 5.95 M/mm3 4.70-6.10 N HEMOGLOBIN (test code = HGB) 15.0 G/DL 12.3-15.9 N HEMATOCRIT (test code = HCT) 48.1 % 35.8-46.7 H MEAN CELL VOLUME (test code = MCV) 80.8 Fl 86.3-98.9 L MEAN CELL HGB (test code = MCH) 25.2 pg 28.9-34.4 L MEAN CELL HGB CONCETRATION (test code = MCHC) 31.2 G/DL 32.1-34.5 L RED CELL DISTRIBUTION WIDTH (test code = RDW) 18.6 SD 11.5-14.5 H PLATELET COUNT (test code = PLT) 255 K/mm3 150-450 N MEAN PLATELET VOLUME (test c ode = MPV) 10.30 fL 7.0-9.6 H NEUTROPHIL % (test code = NT%) 44.7 % 40-76 N IMMATURE GRANULOCYTE % (test code = IG%) 0.0 % 0.0-5.0 N LYMPHOCYTE % (test code = LY%) 42.5 % 20.5-51.1 N MONOCYTE % (test code = MO%) 10.3 % 1.7-9.3 H EOSINOPHIL % (test code = EO%) 2.1 % 0.0-6.0 N BASOPHIL % (test code = BA%) 0.4 % 0.0-2.0 N NUCLEATED RBC % (test code = NRBC%) 0.0 /100WBC% 0.0-1.0 N NEUTROPHIL # (test code = NT#) 2.4 K/mm3 1.8-7.6 N IMMATURE GRANULOCYTE # (test code = IG#) 0.00 x10 3/uL 0.00-0.03 N LYMPHOCYTE # (test code = LY#) 2.3 K/mm3 0.6-3.0 N MONOCYTE # (test code = MO#) 0.6 K/mm3 0.2-1.5 N EOSINOPHIL # (test code = EO#) 0.1 K/mm3 0.0-0.4 N BASOPHIL # (test code = BA#) 0.0 K/mm3 0.0-0.2 N NUCLEATED RBC # (test code = NRBC#) 0.0 K/mm3 0.00-0.01 N MANUAL DIFF REQUIRED (test c ode = MDIFF) NO DIFF/SCN CRITERIA Consult Notes Date/Time Note Provider Source 2024-04-06 10:30:31 Associated Order(s): 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 Pt will dc home today.. MATIAS Mitchell Artist'S Representative - Care Management [facility] [phone] [email or web address] 2024-04-05 08:34:53 Associated Order(s): CONSULT CARDIOLOGY [facility] Cardiology Consult PCP: Kim Jones Date of Service: 04/05/2024 CHIEF COMPLAINT/reason for consult: Chest pain and heart failure History of Present Illness This is a 58 years old male with PMH DM, HTN, HLD, obesity, pAfib, HFrEF s/p LIBRARY ACQUISITIONS TECHNICIAN-D and PRAVEEN. He has been followed by [facility] cardiology with extensive cardiac workup. He has been admitted multiple times with hypertensive urgency and chest pain. LHC in 07/2020 showed no significant CAD. He underwent LIBRARY ACQUISITIONS TECHNICIAN-D. He was admitted to [facility] in 10/2021 for acute ischemic stroke deemed to be secondary to Afib. Eliquis was started. On May 28, 2022 he underwent right heart cath and successful placement of CardioMEMS heart failure monitor device in the left pulmonary artery. Right heart cath showed elevated filling pressures and pulmonary pressure. This time he presented to [facility] with chest pain and dyspnea. He left custodial facility and now stays home. Chest x-ray showed pulmonary congestion. He was placed on IV Lasix with good urine output. 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 Arthritis Asthma Cataract Chronic combined systolic and diastolic CHF, NYHA class 4 09/22/2015 Diet-controlled diabetes mellitus 05/03/2015 Diverticulosis large intestine w/o perforation or abscess w/o bleeding 02/19/2017 Illiteracy patient has home health assist him with his medications LVH (left ventricular hypertrophy) 09/22/2015 Metabolic syndrome 06/23/2015 Nonischemic cardiomyopathy 09/22/2015 Obesity 06/23/2015 PRAVEEN (obstructive sleep apnea) 06/23/2015 Other and unspecified hyperlipidemia Stroke Uncontrolled hypertension 05/03/2015 Past Surgical History: Procedure Laterality Date COLONOSCOPY N/A 02/19/2017 Surgeon: Fran Canchola MD; Location: [facility] OR [facility] ESOPHAGOGASTRODUODENOSCOPY N/A 07/20/2019 Surgeon: Maddi Ballesteros MD; Location: [facility] OR [facility] ESOPHAGOGASTRODUODENOSCOPY N/A 04/03/2021 Surgeon: Fran Trinh MD; Location: Endoscopy ([facility]) OR Location JOINT SURGERY Right 11/2016 Right knee PACEMAKERS INSERTION Family History Problem Relation Age of Onset CHF (congestive heart failure) Mother Depression Mother Hypertension Mother Diabetes Mother Diabetes Father Hypertension Father ALLERGIES Allergies Allergen Reactions Imdur [Isosorbide Mononitrate] Other - See comments Severe hypotension, likely from severe LVH per Dr. Sanderson. MEDICATIONS No current facility-administered medications on file prior to encounter. Current Outpatient Medications on File Prior to Encounter Medication Sig Dispense Refill allopurinoL 300 mg tablet Take 1 tablet by mouth every morning. 90 tablet 3 apixaban 5 mg tablet Take 1 tablet by mouth in the morning and 1 tablet in the evening. Indications: atrial fibrillation 180 tablet 3 aspirin 81 mg chewable tablet Take 1 tablet by mouth in the morning. 90 tablet 3 atorvastatin 40 mg tablet Take 1 tablet by mouth at bedtime. 90 tablet 3 busPIRone 5 mg tablet Take 1 tablet by mouth in the morning and 1 tablet in the evening. 180 tablet 3 carvediloL 25 mg tablet Take 1 tablet by mouth in the morning and 1 tablet in the evening. Take with meals. 180 tablet 3 diclofenac dodium (VOLTAREN) 1 % gel Apply 4 g to area(s) 4 (four) times daily. Apply 4 g qid 100 g 1 empagliflozin (JARDIANCE) 10 mg tablet Take 1 tablet by mouth in the morning. 90 tablet 3 furosemide 40 mg tablet Take 1 tablet by mouth in the morning. 90 tablet 2 gabapentin 100 mg capsule Take 1 capsule by mouth in the morning and 1 capsule at noon and 1 capsule in the evening. 90 capsule 5 glipiZIDE 5 mg tablet Take 1 tablet by mouth 2 (two) times daily before breakfast and dinner. 180 tablet 3 spironolactone (ALDACTONE) 25 mg tablet Take 1 tablet by mouth in the morning. 90 tablet 2 lisinopriL 2.5 mg tablet Take 1 tablet by mouth in the morning. Lancets Misc Check sugars 1 times a day. Dx Code E11.9. Brand per insurance. 100 Each 11 blood sugar diagnostic strip Check blood sugar 2 times a day. E11.9. Brand per insurance. 1 Strip 6 Blood-Glucose Meter Kit Check sugars 2 times a day. Dx. Code E11.9 Brand per Insurance 1 Kit 0 omeprazole 40 mg capsule Take 1 capsule by mouth daily. 90 capsule 3 SOCIAL HISTORY Social History Socioeconomic History Marital status: Single Number of children: 2 Highest education level: High school graduate Occupational History Occupation: Disabled Comment: SSDI Tobacco Use Smoking status: Never Smokeless tobacco: Never Vaping Use Vaping status: Never Used Substance and Sexual Activity Alcohol use: Not Currently Comment: 1 cup of whiskey but last dirnk in December Drug use: Never Sexual activity: Yes Partners: Male, Female control/protection: Condom Social History Narrative Lives in an apt in [place], [place] himself. Social Determinants of Health Financial Resource Strain: Low Risk (05/12/2022) Overall Financial Resource Strain (CARDIA) Difficulty of Paying Living Expenses: Not hard at all Food Insecurity: No Food Insecurity (05/12/2022) Hunger Vital Sign Worried About Running Out of Food in the Last Year: Never true Ran Out of Food in the Last Year: Never true Transportation Needs: No Transportation Needs (05/28/2022) PRAPARE - Transportation Lack of Transportation (Medical): No Lack of Transportation (Non-Medical): No REVIEW OF SYSTEMS (-)=Negative,(+)=Positive (-)=Negative,(+)=Positive At least 10 systems reviewed, negative except as mentioned in HPI PHYSICAL EXAMINATION Vitals: 04/04/24201904/04/24 2318 04/05/24 0315 04/05/24 0717 BP: (!) 140/106 (!) 132/92 117/73 125/75 Pulse: 72 67 65 68 Resp: Temp: 36.2 ?C (97.1 ?F) 36.1 ?C (96.9 ?F) 36.1 ?C (96.9 ?F) TempSrc: Temporal Artery Temporal Artery SpO2: 99% 98% 98% 99% Weight: 142.5 kg (314 lb 1.6 oz) Height: General: no apparent distress, obese HEENT: normocephalic atraumatic Neck: supple, no lymphadenopathy, no bruits, no JVD Lungs: clear to auscultation bilaterally Cardio: S1, S2, normal rate, regular; no murmurs, rubs or gallops Abdomen: non-distended : not examined Rectal: not examined Extremities: no clubbing, cyanosis, or edema Skin: no rashes Neuro: no focal deficits LABS - reviewed pertinent labs as below: CBC BMP PT/INR WBC (10*3/?L) Date Value 04/05/2024 4.38 NA (mmol/L) Date Value 04/05/2024 138 No results found for: "PT" PLT (10*3/?L) Date Value 04/05/2024 171 K (mmol/L) Date Value 04/05/2024 3.5 INR (no units) Date Value 06/05/2022 1.1 HGB (g/dL) Date Value 04/05/2024 12.2 BUN (mg/dL) Date Value 04/05/2024 20 HCT (%) Date Value 04/05/2024 39.7 CREATININE (mg/dL) Date Value 04/05/2024 1.50 (H) LIPID PROFILE GLUCOSE (mg/dL) Date Value 04/05/2024 100 CHOL (mg/dL) Date Value 12/08/2023 140 TSH LDL CHOL (mg/dL) Date Value 12/08/2023 70 TSH (mIU/L) Date Value 12/08/2023 4.13 CARDIAC ENZYMES HDL (mg/dL) Date Value 12/08/2023 33 (L) CK (U/L) Date Value 06/07/2022 280 (H) TRIG (mg/dL) Date Value 12/08/2023 184 (H) LFTs CK-MB (ng/mL) Date Value 08/28/2021 1.52 AST(SGOT) (U/L) Date Value 04/05/2024 70 (H) TROPONIN I (ng/mL) Date Value 04/04/2024 0.023 ALT(SGPT) (U/L) Date Value 04/13/2019 26 ALTv (U/L) Date Value 04/05/2024 94 (H) No results found for: "BNP" EKG--atrial sense ventricular paced rhythm Chest x-ray-mild pulmonary congestion ASSESSMENT/PLAN Principal Problem: Acute on chronic combined systolic and diastolic congestive heart failure Active Problems: Essential hypertension Type 2 diabetes mellitus with complication, without long-term current use of insulin Nonischemic cardiomyopathy PRAVEEN on CPAP Dyslipidemia PAF (paroxysmal atrial fibrillation) Chest pain Hypertensive emergency Presence of cardiac resynchronization therapy defibrillator (LIBRARY ACQUISITIONS TECHNICIAN-D) Morbid obesity Acute on chronic HFrEF--CXR showed mild congestion. BNP is lower than previous value. Recommend to continue IV Lasix 40 mg twice daily as tolerated. Low salt diet. I/O. Daily weight. Continue lisinopril, Jardiance, coreg, and spironolactone. Off milrinone due to non compliance. Discussed the low-salt diet. HTN/hypertensive emergency--his blood pressure is currently better controlled. Continue Coreg, lisinopril and spironolactone. Adjust as needed. Previous secondary HTN workup negative. PAfib--Remains in normal sinus rhythm. Continue Eliquis. Continue Coreg. PRAVEEN--continue C-PAP. Morbid obesity--discussed diet and weight loss. S/p LIBRARY ACQUISITIONS TECHNICIAN-D. Thank you for allowing us to participate in the care of your patient. Please feel free to contact us for any questions or if we can be of further assistance. Cornelia Sanderson MD, FACC, NESTOR System Designer Division of Cardiovascular Medicine [facility] - Health History and Physical Notes Date/Time Note Provider Source 2024-04-04 23:43:26 Medicine History & Physical Date of Service: 04/04/2024 Pt presents from: Home CC: CP / SOB History of Present Illness: Bryan Parada is a 58 year old male with past md hx asthma, chronic systolic and diastolic congestive heart failure, nonischemic cardiomyopathy, diabetes, stage III status post AICD placement that presents to the ED for chest pain and shortness of breath. Per patient he left SNF this past December and has been living with friends who have helped him be compliant with medications. He states compliance with visiting his doctors. Over the past 24 hours he has developed chest pain along with increasing shortness of breath. He does state having Ramen noodles either yesterday or the day before for dinner. Due to increasing shortness of breath his friends recommended that he come to the hospital for evaluation. In the emergency department he was noted to be hypertensive with a blood pressure of 155/114. Initial labs show no leukocytosis. Initial chemistry shows an elevated creatinine of 1.41 mg/dL. Noted prior testing in December showing creatinine of 1.88 mg/dL. proBNP was noted to be elevated at 7700 troponin cycle to date is negative. LFTs are noted to be mildly elevated. Chest x-ray shows marked cardiomegaly with vascular congestion. Last cardiac echo in July 2023 shows an EF of 15 to 20% with diastolic dysfunction. Hospitalist called for admission. On my exam chest pain has resolved. States compliance with help with his medications. Denies smoking drinking or drugs. 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 Arthritis Asthma Cataract Chronic combined systolic and diastolic CHF, NYHA class 4 09/22/2015 Diet-controlled diabetes mellitus 05/03/2015 Diverticulosis large intestine w/o perforation or abscess w/o bleeding 02/19/2017 Illiteracy patient has home health assist him with his medications LVH (left ventricular hypertrophy) 09/22/2015 Metabolic syndrome 06/23/2015 Nonischemic cardiomyopathy 09/22/2015 Obesity 06/23/2015 PRAVEEN (obstructive sleep apnea) 06/23/2015 Other and unspecified hyperlipidemia Stroke Uncontrolled hypertension 05/03/2015 PSH: has a past surgical history that includes joint surgery (Right, 11/2016); colonoscopy (N/A, 02/19/2017); esophagogastroduodenoscopy (N/A, 07/20/2019); pacemakers insertion; and esophagogastroduodenoscopy (N/A, 04/03/2021). Family Hx: Noncontributory unless mentioned above Social History Tobacco Use Smoking status: Never Smokeless tobacco: Never Vaping Use Vaping status: Never Used Substance Use Topics Alcohol use: Not Currently Comment: 1 cup of whiskey but last dirnk in December Drug use: Never Current Scheduled Medications Current IV Current Facility-Administered Medications: acetaminophen (TYLENOL) tablet 650 mg, 650 mg, Oral, Q6HPRN, Bj Weiss MD [START ON 04/05/2024] allopurinoL (ZYLOPRIM) tablet 300 mg, 300 mg, Oral, QAM, Bj Weiss MD apixaban (ELIQUIS) tablet 5 mg, 5 mg, Oral, BID, Bj Weiss MD, 5 mg at 04/04/242033 [START ON 04/05/2024] aspirin chewable tablet 81 mg, 81 mg, Oral, DAILY, Bj Weiss MD atorvastatin (LIPITOR) tablet 40 mg, 40 mg, Oral, QHS, Bj Weiss MD, 40 mg at 04/04/242030 busPIRone (BUSPAR) tablet 5 mg, 5 mg, Oral, BID, Bj Weiss MD, 5 mg at 04/04/242031 carvediloL (COREG) tablet 25 mg, 25 mg, Oral, BID MEALS, Bj Weiss MD, 25 mg at 04/04/24 1724 dextrose 50 % in water (D50W) injection 25 mL, 25 mL, Slow IV Push, PRN, Bj Weiss MD furosemide (LASIX) injection 40 mg, 40 mg, Slow IV Push, Q12H, Bj Weiss MD, 40 mg at 04/04/242030 gabapentin (NEURONTIN) capsule 100 mg, 100 mg, Oral, TID, Bj Weiss MD, 100 mg at 04/04/242031 glipiZIDE (GLUCOTROL) tablet 5 mg, 5 mg, Oral, BIDAC, Bj Weiss MD hydralAZINE (APRESOLINE) injection 10 mg, 10 mg, Slow IV Push, ONCE, Michelle Miranda MD HYDROcodone-acetaminophen (NORCO 5) tablet 1 tablet, 1 tablet, Oral, Q6HPRN, Bj Weiss MD HYDROcodone-acetaminophen (NORCO) 10-325 mg tablet 1 tablet, 1 tablet, Oral, Q6HPRN, Bj Weiss MD, 1 tablet at 04/04/242031 [START ON 04/05/2024] lisinopriL (PRINIVIL,ZESTRIL) tablet 2.5 mg, 2.5 mg, Oral, DAILY, Bj Weiss MD ondansetron (ZOFRAN (PF)) injection 4 mg, 4 mg, Slow IV Push, Q6HPRN, Bj Weiss MD pantoprazole (PROTONIX) EC tablet 40 mg, 40 mg, Oral, DAILY, Bj Weiss MD, 40 mg at 04/04/24 1459 Sliding Scale Insulin - Lispro (HumaLOG), , Subcutaneous, TID MEALS+HS, Bj Weiss MD [START ON 04/05/2024] spironolactone (ALDACTONE) tablet 25 mg, 25 mg, Oral, DAILY, Bj Weiss MD Objective: Vitals: Vitals: 04/04/24 1608 04/04/24 19204/04/24201904/04/24 2318 BP: (!) 127/100 (!) 146/101 (!) 140/106 (!) 132/92 Pulse: 74 72 72 67 Resp: Temp: 36.3 ?C (97.4 ?F) 36.1 ?C (97 ?F) 36.2 ?C (97.1 ?F) TempSrc: Temporal Artery SpO2: 99% 97% 99% 98% Weight: 145 kg (319 lb 9.6 oz) Height: 1.88 m (6' 2") I/O's: Intake/Output Summary (Last 24 hours) at 04/04/2024 2343 Last data filed at 04/04/2024 2200 Gross per 24 hour Intake 240 ml Output 950 ml Net -710 ml Physical Exam: General: NAD, Alert, lying in bed comfortable, cogent speech. HEENT: anicteric, oral mucosa dry Neck: supple, no JVD, no bruits. Chest: CTA B/L, no W/R/C. Heart: RRR, S1/S2, no M/G/R Abdominal: BS normoactive, soft, ND, NT. Skin/Extremities: no rash, no cyanosis, warm and dry, no LE edema. Neurological: CN II-XII grossly intact, no focal deficits. Labs: BMP:BMP NA (mmol/L) Date Value 04/04/2024 141 12/08/2023 137 11/19/2023 139 06/08/2023 139 06/03/2023 139 K (mmol/L) Date Value 04/04/2024 4.2 12/08/2023 4.7 11/19/2023 4.5 06/08/2023 4.5 06/03/2023 4.3 CALCIUM (mg/dL) Date Value 04/04/2024 8.9 12/08/2023 9.1 11/19/2023 9.8 06/08/2023 9.2 06/03/2023 9.4 CL (mmol/L) Date Value 04/04/2024 109 (H) 12/08/2023 101 11/19/2023 99 06/08/2023 101 06/03/2023 101 BUN (mg/dL) Date Value 04/04/2024 16 12/08/2023 43 (H) 11/19/2023 31 (H) 06/08/2023 27 (H) 06/03/2023 33 (H) CREATININE (mg/dL) Date Value 04/04/2024 1.41 (H) 12/08/2023 1.88 (H) 11/19/2023 2.05 (H) 06/08/2023 1.64 (H) 06/03/2023 1.66 (H) GLUCOSE (mg/dL) Date Value 04/04/2024 78 12/08/2023 94 11/19/2023 107 06/08/2023 96 06/03/2023 102 CO2 TOTAL (mmol/L) Date Value 04/04/2024 24 12/08/2023 25 11/19/2023 29 06/08/2023 26 06/03/2023 24 CBC:CBC WBC (10*3/?L) Date Value 04/04/2024 4.79 RBC (10*6/?L) Date Value 04/04/2024 4.92 PLT (10*3/?L) Date Value 04/04/2024 193 HGB (g/dL) Date Value 04/04/2024 13.3 HCT (%) Date Value 04/04/2024 43.4 BMP:Hepatic Function Panel ALBUMIN (g/dL) Date Value 04/04/2024 3.8 T PROTEIN (g/dL) Date Value 04/04/2024 7.2 TOTAL BILI (mg/dL) Date Value 04/04/2024 1.7 (H) BILI UNCON (mg/dL) Date Value 04/01/2021 0.7 BILI CONJ (mg/dL) Date Value 04/01/2021 0.0 ALT(SGPT) (U/L) Date Value 04/13/2019 26 ALTv (U/L) Date Value 04/04/2024 88 (H) AST(SGOT) (U/L) Date Value 04/04/2024 73 (H) ALK PHOS (U/L) Date Value 04/04/2024 65 Troponin: Recent Labs 04/04/24 1704 TROPNI 0.032 I have reviewed all relevant labs Imaging: XR CHEST 1 VW Result Date: 04/04/2024 EXAM: XR CHEST 1 VW COMPARISON: Chest x-ray on 06/05/2022 HISTORY: chest pain FINDINGS: Lines/Devices: Left chest wall AICD/pacemaker with its tips terminating in the right atrium, right ventricle and coronary sinus. Lungs: Normal to low lung volumes. Retrocardiac opacities are present, likely representing atelectasis. Trace left pleural effusion may be present. Heart/Mediastinum: Marked cardiomegaly. Chronic central pulmonary vascular congestion. Bones and soft tissues: No osseous abnormality is visualized. Marked cardiomegaly with vascular congestion. Preliminary Report Dictated by Resident: Garret Olmedo MD., have reviewed this study and agree with the above report. Assessment and plan: Active Problems: * No active hospital problems. * Acute on chronic systolic and diastolic congestive heart failure: Noted EF of 15 to 20% prior echo - Cardiology consult - Continue diuresis with IV Lasix 40 mg twice daily with Aldactone 25 mg p.o. daily - Continue Coreg and lisinopril - Counseled regarding importance of salt intake/low-salt diet (avoiding Ramen noodles) - Strict I's and O's Hypertensive emergency: Noted chest pain on admission that has improved with blood pressure management - Continue home medications including Hyperlipidemia: - Continue statin Paroxysmal atrial fibrillation - Continue Eliquis for anticoagulation - On Coreg for rate control History of stroke: - Continue statin on Eliquis Based on prior history of medication noncompliance he appears to do well in a better structured environment possibly SNF if possible follow-up with case management DVT prophylaxis: Eliquis Advanced Care Planning ( Z71.89 ) Above assessment and plan discussed at length with patient, patient expressed full understanding. Questions and concerns addressed I spent 18 minutes discussing the advance care planning. Advanced Directive Maker: PT Level of comfort: N/A Code Status: Full [place] [employer] TE[employer] was verified Disposition: Admit, FU cards eval Diabetes mellitus type 2: - Continue home medications including glipizide - Start insulin sliding scale Igned: Criss Leyva DO 04/04/2024 [facility] - Health Notes Date/Time Note Provider Source 2024-04-19 08:15:27 Images from the original note were not included. Routed to provider for review. Unable to refill per ambulatory refill guidelines. Notes: LIDOCAINE-PRILOCAINE 2.5-2.5 % cream Changed from: lidocaine 5 % ointment Possible duplicate: Hover to review recent actions on this medication Sig: N/A Disp: Not specified Refills: 0 Start: 04/18/2024 Class: eRX For: Chronic pain of left knee Last ordered: Yesterday (04/18/2024) by Brooks Barker NP Last refill: 04/18/2024 Rx #: [id number] Pharmacy comment: Alternative Requested:THE PRESCRIBED MEDICATION IS NOT COVERED BY INSURANCE. PLEASE CONSIDER CHANGING TO ONE OF THE SUGGESTED COVERED ALTERNATIVES. Off-Protocol Zyhypm2004/18/2024 05:28 PM Protocol Details Medication not assigned to a protocol, forward to provider. Valid encounter within last 12 months This request has changes from the previous prescription. To be filled at: [facility]/pharmacy #[id number] [facility] [address] Last Refilled:Needs to be changed Recent Visits Date Type Provider Dept 04/13/24 Office Visit Brooks Barker NP [facility] 04/13/24 Office Visit Brooks Barker NP [facility] 01/05/24 Office Visit Brooks Barker NP [facility] Showing recent visits within past 540 days with a meds authorizing provider and meeting all other requirements Future Appointments Date Type Provider Dept 07/13/24 Appointment Brooks Barker NP [facility] Showing future appointments within next 150 days with a meds authorizing provider and meeting all other requirements [facility] 2024-04-18 16:59:38 POC discussed with pt, referral line number given for orthopedics appt. Pt upset reports gel does not work for him, informed of referral to pain management as well did not verbalize wanting to proceed at this time. ER precautions given, pt states "I will no be going to the ER". Pt verbalizes understanding. Soni Duffy RN [facility] 2024-04-18 16:48:58 Patient states he is still having knee and medications did not help. Please advise. Eliazar Jan [facility] 2024-04-18 16:45:11 Patient returning missed call. Please advise. Eliazar Jan [facility] 2024-04-18 16:41:21 Left detailed VM, Pt to call clinic if further questions or concerns. [facility] 2024-04-18 16:31:33 Albia's not prescribed in clinic (Referral for pain management and also be initiated) Started on Methocarbamol and lidocaine gel. Referral placed for orthopedic surgery for further treatment options/knee injections. ER precautions [facility] 2024-04-18 16:18:50 Call placed pt, Pt reports he is having left knee pain that began to increase yesterday. Pt states he discussed this at his last OV on 04/13/2024, and "she didn't pay attention to it", states he was seen in ER and was informed "it was bone on bone". Pt reports he is unable to take Tylenol #3 as they "mess my stomach up", and requesting Albia. Informed pt he may need to come in for an appt as this is a new problem. Pt would like message sent to provider. [facility] 2024-04-18 16:03:27 Bryan Parada is a 58 year old male Calling because he's in pain and would like something for this.Pt is requesting dr adan howard Beata Stephenson [facility] 2024-04-07 14:32:37 TRANSITIONAL CARE MANAGEMENT ASSESSMENT 04/07/2024 Bryan Parada [id number] Bryan Parada is a 58 year old Black or male was admitted on 04/04/24 to [facility] SURG. He was discharged on 04/06/24 with discharge disposition of HR- Routine Discharge. Admitting Physician: Bj Weiss Discharge Diagnosis: Linked Episodes Type: Episode: Status: Noted: Resolved: Last update: Updated by: TRANSITION OF CARE tcm Active 04/06/2024 04/07/2024 2:30 PM Flip Zavala RN Comments: TCM [id number] outreach documentation: Discharge Assessment Chart Assessed: 04/07/24 TCM Outreach Completed: 04/07/24 Do you have a few minutes to speak with me about how you are doing at home?: Yes (Pt reports he is doing alright.) Discharge Instructions Do you understand your at-home instructions?: Yes (No questions at this time.) Medications Have you filled your prescriptions and do you have them in your home? : N/A (No new medications prescribed at discharge.) Do you know how to take your medications?: Yes (No questions.) Can you provide me with the names or descriptions of any [id number] or supplements you are currently taking?: Yes (None) Supplies Did you receive applicable home medical supplies/equipment?: N/A Follow Up Appointment Has a follow up appointment been scheduled?: Yes Do you have any questions about your follow up appointments?: No Are you able to get to your appointment? Who will be taking you?: Yes Home Health Assistance Has the home health nurse contacted you since you've been home?: N/A Survey - Recognition Is there anything you would like to share about your recent hospitalization, or anyone you would like to recognize?: No Do you have any suggestions for improvement?: No Do you have any other questions or concerns at this time?: No Future Appointments: Future Appointments Provider Department Dept Phone 04/13/2024 12:00 PM Brooks Barker NP [facility], [place] [phone] 04/13/2024 1:00 PM Brooks Barker NP [facility], [place] [phone] 04/18/2024 1:00 PM Rebecca Michele MD [facility], [facility] [phone] 04/25/2024 11:30 AM David Ladd MD [facility] Cardiology, [facility] [phone] 04/28/2024 10:00 AM [facility], [place] [phone] [facility] 2024-04-06 11:52:06 Problem: Discharge Planning Goal: Adequate for discharge 04/06/2024 1152 by Yamilex Hurt RN Outcome: Adequate for discharge 04/06/2024942 by Yamilex Hurt RN Outcome: Progressing as expected Goal: Adequate to move to next level of care 04/06/2024 1152 by Yamilex Hurt RN Outcome: Adequate for discharge 04/06/2024942 by Yamilex Hurt RN Outcome: Progressing as expected Goal: Knowledge of medication management 04/06/2024 1152 by Yamilex Hurt RN Outcome: Adequate for discharge 04/06/2024942 by Yamilex Hurt RN Outcome: Progressing as expected Problem: Cardiac Output - Decreased Goal: Absence of signs and symptoms of decreased cardiac output 04/06/2024 1152 by Yamilex Hurt RN Outcome: Adequate for discharge 04/06/2024942 by Yamilex Hurt RN Outcome: Progressing as expected Problem: Pain Goal: Control of pain at or below patient's documented comfort goal 04/06/2024 1152 by Yamilex Hurt RN Outcome: Adequate for discharge 04/06/2024 09 by Yamilex Hurt RN Outcome: Progressing as expected Goal: Reduction in pain sensation 04/06/2024 1152 by Yamilex Hurt RN Outcome: Adequate for discharge 04/06/2024942 by Yamilex Hurt RN Outcome: Progressing as expected Problem: Skin integrity Impaired (Risk or Actual) Goal: Prevention of new skin breakdown 04/06/2024 1152 by Yamilex Hurt RN Outcome: Adequate for discharge 04/06/2024942 by Yamilex Hurt RN Outcome: Progressing as expected Problem: Tissue Perfusion, Cardiopulmonary - Altered Goal: Circulatory function within specified parameters 04/06/2024 115 by Yamilex Hurt RN Outcome: Adequate for discharge 04/06/2024942 by Yamilex Hurt RN Outcome: Progressing as expected Problem: Falls, Risk of Goal: Absence of falls 04/06/2024 115 by Yamilex Hurt RN Outcome: Adequate for discharge 04/06/2024942 by Yamilex Hurt RN Outcome: Progressing as expected Problem: Bleeding, Risk of Goal: Absence of impaired coagulation signs and symptoms 04/06/2024 115 by Yamilex Hurt RN Outcome: Adequate for discharge 04/06/2024942 by Yamilex Hurt RN Outcome: Progressing as expected Goal: Absence of active bleeding 04/06/2024 115 by Yamilex Hurt RN Outcome: Adequate for discharge 04/06/2024942 by Yamilex Hurt RN Outcome: Progressing as expected Problem: Venous Thromboembolism, (actual or risk of) Goal: Absence of venous thromboembolism (Risk) 04/06/2024 115 by Ymailex Hurt RN Outcome: Adequate for discharge 04/06/2024942 by Yamilex Hurt RN Outcome: Progressing as expected Problem: Glucose control Goal: Glucose level within specified parameters 04/06/2024 115 by Yamilex Hurt RN Outcome: Adequate for discharge 04/06/2024942 by Yamilex Hurt RN Outcome: Progressing as expected [facility] Yamilex Hurt RN [facility] 2024-04-06 09:43:33 Problem: Discharge Planning Goal: Adequate for discharge Outcome: Progressing as expected Goal: Adequate to move to next level of care Outcome: Progressing as expected Goal: Knowledge of medication management Outcome: Progressing as expected Problem: Cardiac Output - Decreased Goal: Absence of signs and symptoms of decreased cardiac output Outcome: Progressing as expected Problem: Pain Goal: Control of pain at or below patient's documented comfort goal Outcome: Progressing as expected Goal: Reduction in pain sensation Outcome: Progressing as expected Problem: Skin integrity Impaired (Risk or Actual) Goal: Prevention of new skin breakdown Outcome: Progressing as expected Problem: Tissue Perfusion, Cardiopulmonary - Altered Goal: Circulatory function within specified parameters Outcome: Progressing as expected Problem: Falls, Risk of Goal: Absence of falls Outcome: Progressing as expected Problem: Bleeding, Risk of Goal: Absence of impaired coagulation signs and symptoms Outcome: Progressing as expected Goal: Absence of active bleeding Outcome: Progressing as expected Problem: Venous Thromboembolism, (actual or risk of) Goal: Absence of venous thromboembolism (Risk) Outcome: Progressing as expected Problem: Glucose control Goal: Glucose level within specified parameters Outcome: Progressing as expected [facility] 2024-04-05 22:17:23 Problem: Discharge Planning Goal: Adequate for discharge Outcome: Progressing as expected Goal: Adequate to move to next level of care Outcome: Progressing as expected Goal: Knowledge of medication management Outcome: Progressing as expected Problem: Cardiac Output - Decreased Goal: Absence of signs and symptoms of decreased cardiac output Outcome: Progressing as expected Problem: Pain Goal: Control of pain at or below patient's documented comfort goal Outcome: Progressing as expected Goal: Reduction in pain sensation Outcome: Progressing as expected Problem: Skin integrity Impaired (Risk or Actual) Goal: Prevention of new skin breakdown Outcome: Progressing as expected Problem: Tissue Perfusion, Cardiopulmonary - Altered Goal: Circulatory function within specified parameters Outcome: Progressing as expected Problem: Falls, Risk of Goal: Absence of falls Outcome: Progressing as expected Problem: Bleeding, Risk of Goal: Absence of impaired coagulation signs and symptoms Outcome: Progressing as expected Goal: Absence of active bleeding Outcome: Progressing as expected Problem: Venous Thromboembolism, (actual or risk of) Goal: Absence of venous thromboembolism (Risk) Outcome: Progressing as expected Problem: Glucose control Goal: Glucose level within specified parameters Outcome: Progressing as expected Jitendra Rae RN [facility] 2024-04-05 16:21:12 Images from the original note were not included. Sudha Wang [facility] 2024-04-05 13:41:45 Problem: Discharge Planning Goal: Adequate for discharge Outcome: Progressing as expected Goal: Adequate to move to next level of care Outcome: Progressing as expected Goal: Knowledge of medication management Outcome: Progressing as expected Problem: Cardiac Output - Decreased Goal: Absence of signs and symptoms of decreased cardiac output Outcome: Progressing as expected Problem: Pain Goal: Control of pain at or below patient's documented comfort goal Outcome: Progressing as expected Goal: Reduction in pain sensation Outcome: Progressing as expected Problem: Skin integrity Impaired (Risk or Actual) Goal: Prevention of new skin breakdown Outcome: Progressing as expected Problem: Tissue Perfusion, Cardiopulmonary - Altered Goal: Circulatory function within specified parameters Outcome: Progressing as expected Problem: Falls, Risk of Goal: Absence of falls Outcome: Progressing as expected Problem: Bleeding, Risk of Goal: Absence of impaired coagulation signs and symptoms Outcome: Progressing as expected Goal: Absence of active bleeding Outcome: Progressing as expected Problem: Venous Thromboembolism, (actual or risk of) Goal: Absence of venous thromboembolism (Risk) Outcome: Progressing as expected Problem: Glucose control Goal: Glucose level within specified parameters Outcome: Progressing as expected [facility] 2024-04-04 22:16:36 Problem: Discharge Planning Goal: Adequate for discharge Outcome: Progressing as expected Goal: Adequate to move to next level of care Outcome: Progressing as expected Goal: Knowledge of medication management Outcome: Progressing as expected Problem: Cardiac Output - Decreased Goal: Absence of signs and symptoms of decreased cardiac output Outcome: Progressing as expected Problem: Pain Goal: Control of pain at or below patient's documented comfort goal Outcome: Progressing as expected Goal: Reduction in pain sensation Outcome: Progressing as expected Problem: Skin integrity Impaired (Risk or Actual) Goal: Prevention of new skin breakdown Outcome: Progressing as expected Problem: Tissue Perfusion, Cardiopulmonary - Altered Goal: Circulatory function within specified parameters Outcome: Progressing as expected Problem: Falls, Risk of Goal: Absence of falls Outcome: Progressing as expected Problem: Bleeding, Risk of Goal: Absence of impaired coagulation signs and symptoms Outcome: Progressing as expected Goal: Absence of active bleeding Outcome: Progressing as expected Problem: Venous Thromboembolism, (actual or risk of) Goal: Absence of venous thromboembolism (Risk) Outcome: Progressing as expected Problem: Glucose control Goal: Glucose level within specified parameters Outcome: Progressing as expected T Antonieta Stoddard RN [facility] 2024-04-04 17:03:54 Problem: Discharge Planning Goal: Adequate for discharge Outcome: Progressing as expected Goal: Adequate to move to next level of care Outcome: Progressing as expected Goal: Knowledge of medication management Outcome: Progressing as expected Problem: Cardiac Output - Decreased Goal: Absence of signs and symptoms of decreased cardiac output Outcome: Progressing as expected Problem: Pain Goal: Control of pain at or below patient's documented comfort goal Outcome: Progressing as expected Goal: Reduction in pain sensation Outcome: Progressing as expected Problem: Skin integrity Impaired (Risk or Actual) Goal: Prevention of new skin breakdown Outcome: Progressing as expected Problem: Tissue Perfusion, Cardiopulmonary - Altered Goal: Circulatory function within specified parameters Outcome: Progressing as expected [facility] 2024-04-04 15:50:26 Nurse Report Report given to Yarelis Vieyra. Chief complaint, assessment findings. Zach Rodriguez RN Zach Rodriguez RN [facility] 2024-04-04 13:31:52 Oxygen 91% on room air, placed on 2L NC, saturation up to 94% [facility] 2024-04-04 11:56:54 Patient to ED for chest pain and shortness of breath when walking that started yesterday. Chuckie Bianchi RN [facility] 2024-04-04 11:50:00 EMERGENCY DEPARTMENT ENCOUNTER [facility] Patient Name: Bryan Parada Date of : 1965 58 year old Exam Room:[place] [address] Primary Care Physician: Brooks Barker Pre- Hospital Patient Escorted by: Self [9] Mode of Arrival: Personal means [1] EMS Treatment Prior to ED Arrival: [employer]GEANT treatment: None ED Events Date/Time Event User Comments 04/04/24 1202 Medical Screening Begins MICHELLE MIRANDA MD -- 04/04/24 1202 First Provider Evaluation MICHELLE MIRANDA MD -- Chief Complaint Chief Complaint Patient presents with Chest Pain ED Triage Notes Chuckie Bianchi RN 04/04/2024 11:57 Patient to ED for chest pain and shortness of breath when walking that started yesterday. 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 Arthritis Asthma Cataract Chronic combined systolic and diastolic CHF, NYHA class 4 09/22/2015 Diet-controlled diabetes mellitus 05/03/2015 Diverticulosis large intestine w/o perforation or abscess w/o bleeding 02/19/2017 Illiteracy patient has home health assist him with his medications LVH (left ventricular hypertrophy) 09/22/2015 Metabolic syndrome 06/23/2015 Nonischemic cardiomyopathy 09/22/2015 Obesity 06/23/2015 PRAVEEN (obstructive sleep apnea) 06/23/2015 Other and unspecified hyperlipidemia Stroke Uncontrolled hypertension 05/03/2015 Tetanus received in last 5 years: Unknown Past Surgical History Past Surgical History: Procedure Laterality Date COLONOSCOPY N/A 02/19/2017 Surgeon: Fran Canchola MD; Location: [facility] OR Location ESOPHAGOGASTRODUODENOSCOPY N/A 07/20/2019 Surgeon: Maddi Ballesteros MD; Location: [facility] OR Location ESOPHAGOGASTRODUODENOSCOPY N/A 04/03/2021 Surgeon: Fran Trinh MD; Location: [facility] ([facility]) OR Location JOINT SURGERY Right 11/2016 Right knee PACEMAKERS INSERTION Allergies Allergies Allergen Reactions Imdur [Isosorbide Mononitrate] Other - See comments Severe hypotension, likely from severe LVH per Dr. Sanderson. Social History Tobacco Use Never smoked or used smokeless tobacco. Vaping Use Never used Alcohol Use Not Currently. Comments: 1 cup of whiskey but last dirnk in December Drug Use Never. Sexual Activity Sexually active; Partners: Male, Female; Control/Protection: Condom. Review of Systems Review of Systems Constitutional: Negative. Negative for chills, fatigue, fever and unexpected weight change. HENT: Negative. Eyes: Negative. Negative for discharge and itching. Respiratory: Negative. Negative for cough, chest tightness, shortness of breath and wheezing. Cardiovascular: Positive for chest pain. Negative for palpitations. Gastrointestinal: Negative. Negative for abdominal distention, abdominal pain, nausea and vomiting. Genitourinary: Negative. Negative for dysuria, urgency, frequency and flank pain. Musculoskeletal: Negative. Skin: Negative. Negative for color change, pallor and wound. Neurological: Negative. Negative for dizziness, syncope, light-headedness and headaches. Psychiatric/Behavioral: Negative. Negative for agitation and behavioral problems. All other systems reviewed and are negative. Endocrine: Endocrine negative Physical Exam ED Triage Vitals Weight 04/04/24 1157 142.9 kg (315 lb) Actual or estimated 04/04/24 1608 Actual Height 04/04/24 1157 1.88 m (6' 2") BP 04/04/24 1157 (!) 155/114 Pulse 04/04/24 1157 85 Resp 04/04/24 1157 18 Temp 04/04/24 1157 36.8 ?C (98.3 ?F) Temp source 04/04/24 1921 TEMPORAL ART SpO2 04/04/24 1157 98 % Measured on -- Physical Exam Vitals reviewed. Constitutional: Appearance: He is well-developed. He is obese. HENT: Head: Normocephalic. Nose: Nose normal. Eyes: Conjunctiva/sclera: Conjunctivae normal. Neck: Trachea: No tracheal deviation. Cardiovascular: Rate and Rhythm: Normal rate. Heart sounds: Normal heart sounds. No murmur heard. No friction rub. Pulmonary: Effort: Pulmonary effort is normal. No respiratory distress. Breath sounds: Normal breath sounds. Abdominal: General: Bowel sounds are normal. There is no distension. Palpations: Abdomen is soft. Tenderness: There is no abdominal tenderness. There is no guarding or rebound. Musculoskeletal: General: Normal range of motion. Cervical back: Normal range of motion and neck supple. Skin: General: Skin is warm and dry. Neurological: Mental Status: He is alert and oriented to person, place, and time. Psychiatric: Behavior: Behavior normal. Labs Lab Results CBC WITH DIFF - Abnormal Result Value Ref Range WBC 4.79 4.20 - 10.70 10*3/?L RBC 4.92 4.26 - 5.52 10*6/?L HGB 13.3 12.2 - 16.4 g/dL HCT 43.4 38.4 - 49.3 % MCV 88.2 81.7 - 95.6 fL MCH 27.0 26.1 - 32.7 pg MCHC 30.6 (*) 31.2 - 35.0 g/dL RDW-SD 55.1 (*) 38.5 - 51.6 fL RDW-CV 17.3 (*) 12.1 - 15.4 % PLT 193 150 - 328 10*3/?L MPV 11.6 9.8 - 13.0 fL NRBC/100 WBC 1.0 0.0 - 10.0 /100 WBCs NRBC x10 3 0.05 10*3/?L GRAN MAT (NEUT) % 51.0 % IMM GRAN % 0.20 % LYMPH % 34.4 % MONO % 11.9 % EOS % 2.1 % BASO % 0.4 % GRAN MAT x10 3 (ANC) 2.44 1.99 - 6.95 10*3/uL IMM GRAN x10 3 <0.03 0.00 - 0.06 10*3/uL LYMPH x10 3 1.65 1.09 - 3.23 10*3/uL MONO x10 3 0.57 0.36 - 1.02 10*3/uL EOS x10 3 0.10 0.06 - 0.53 10*3/uL BASO x10 3 <0.03 0.01 - 0.09 10*3/uL COMP. METABOLIC PANEL (23087) - Abnormal NA 141 135 - 145 mmol/L K 4.2 3.5 - 5.0 mmol/L CL 109 (*) 98 - 108 mmol/L CO2 TOTAL 24 23 - 31 mmol/L AGAP 8 2 - 16 BUN 16 7 - 23 mg/dL GLUCOSE 78 70 - 110 mg/dL CREATININE 1.41 (*) 0.60 - 1.25 mg/dL TOTAL BILI 1.7 (*) 0.1 - 1.1 mg/dL CALCIUM 8.9 8.6 - 10.6 mg/dL T PROTEIN 7.2 6.3 - 8.2 g/dL ALBUMIN 3.8 3.5 - 5.0 g/dL ALK PHOS 65 34 - 122 U/L ALTv 88 (*) 5 - 50 U/L AST(SGOT) 73 (*) 13 - 40 U/L eGFR 58.1 mL/min/1.73m2 N-TERMINAL PRO-BNP - Abnormal NT-proBNP 7,700 (*) <=125 pg/mL TROPONIN I - Normal TROPONIN I 0.027 <=0.034 ng/mL Imaging XR CHEST 1 VW Final Result EXAM: XR CHEST 1 VW COMPARISON: Chest x-ray on 06/05/2022 HISTORY: chest pain FINDINGS: Lines/Devices: Left chest wall AICD/pacemaker with its tips terminating in the right atrium, right ventricle and coronary sinus. Lungs: Normal to low lung volumes. Retrocardiac opacities are present, likely representing atelectasis. Trace left pleural effusion may be present. Heart/Mediastinum: Marked cardiomegaly. Chronic central pulmonary vascular congestion. Bones and soft tissues: No osseous abnormality is visualized. IMPRESSION Marked cardiomegaly with vascular congestion. Preliminary Report Dictated by Resident: Garret Olmedo MD., have reviewed this study and agree with the above report. Orders and Treatments Orders Placed This Encounter Procedures Critical Care XR CHEST 1 VW CBC WITH DIFF COMP. METABOLIC PANEL (74455) TROPONIN I N-TERMINAL PRO-BNP Cbc without Diff Basic Metabolic Panel (NA, K, CL, CO2, GLUCOSE, BUN, CREATININE, CA) Magnesium Serum N-Terminal Pro-Bnp Hepatic Function Panel (18847) (ALB,T.PRO,BILI T,BU/BC,ALT,AST,ALK PHOS) Troponin I POCT GLUCOSE (AUTOMATED) POCT GLUCOSE (AUTOMATED) POCT GLUCOSE (AUTOMATED) POCT GLUCOSE (AUTOMATED) Consult Cardiology Consult Chefs-Adult Orders Placed This Encounter Medications nitroglycerin (NITROSTAT) sublingual tablet 0.4 mg acetaminophen (TYLENOL) tablet 1,000 mg cloNIDine (CATAPRES) tablet 0.2 mg apixaban (ELIQUIS) tablet 5 mg allopurinoL (ZYLOPRIM) tablet 300 mg aspirin chewable tablet 81 mg atorvastatin (LIPITOR) tablet 40 mg busPIRone (BUSPAR) tablet 5 mg carvediloL (COREG) tablet 25 mg furosemide (LASIX) injection 40 mg gabapentin (NEURONTIN) capsule 100 mg glipiZIDE (GLUCOTROL) tablet 5 mg lisinopriL (PRINIVIL,ZESTRIL) tablet 2.5 mg pantoprazole (PROTONIX) EC tablet 40 mg spironolactone (ALDACTONE) tablet 25 mg acetaminophen (TYLENOL) tablet 650 mg HYDROcodone-acetaminophen (NORCO 5) tablet 1 tablet HYDROcodone-acetaminophen (NORCO) 10-325 mg tablet 1 tablet ondansetron (ZOFRAN (PF)) injection 4 mg dextrose 50 % in water (D50W) injection 25 mL Sliding Scale Insulin - Lispro (HumaLOG) aspirin tablet 325 mg hydralAZINE (APRESOLINE) injection 10 mg magnesium sulfate in water 4 gram/50 mL (8 %) IV Piggyback 4 g Procedures EKG Time 1202 Rate 85 Atrial paced [place] normal Abnormal EKG MDM Patient was evaluated for an emergency medical condition related to Chest Pain Diagnoses considered but not limited to: ACS Thoracic aneurysm Hypertensive Emergency Labs:were ordered, and resulted, any relevant abnormalities were considered. Abnormal Labs Reviewed CBC WITH DIFF - Abnormal; Notable for the following components: Result Value MCHC 30.6 (*) RDW-SD 55.1 (*) RDW-CV 17.3 (*) All other components within normal limits COMP. METABOLIC PANEL (00449) - Abnormal; Notable for the following components: CL 109 (*) CREATININE 1.41 (*) TOTAL BILI 1.7 (*) ALTv 88 (*) AST(SGOT) 73 (*) All other components within normal limits N-TERMINAL PRO-BNP - Abnormal; Notable for the following components: NT-proBNP 7,700 (*) All other components within normal limits Narrative: Positive: Heart Failure Likely POCT GLUCOSE (AUTOMATED) - Abnormal; Notable for the following components: POCT GLU 65 (*) All other components within normal limits CBC WITHOUT DIFF - Abnormal; Notable for the following components: MCHC 30.7 (*) RDW-CV 17.3 (*) RDW-SD 53.9 (*) All other components within normal limits BASIC METABOLIC PANEL (NA, K, CL, CO2, GLUCOSE, BUN, CREATININE, CA) - Abnormal; Notable for the following components: CREATININE 1.50 (*) CALCIUM 8.4 (*) All other components within normal limits MAGNESIUM - Abnormal; Notable for the following components: MAGNESIUM 1.4 (*) All other components within normal limits N-TERMINAL PRO-BNP - Abnormal; Notable for the following components: NT-proBNP 5,830 (*) All other components within normal limits Narrative: Positive: Heart Failure Likely HEPATIC FUNCTION PANEL (28086) (ALB,T.PRO,BILI T,BU/BC,ALT,AST,ALK PHOS) - Abnormal; Notable for the following components: TOTAL BILI 1.7 (*) BILI UNCON 1.2 (*) ALTv 94 (*) AST(SGOT) 70 (*) All other components within normal limits POCT GLUCOSE (AUTOMATED) - Abnormal; Notable for the following components: POCT GLU 134 (*) All other components within normal limits Imaging:Ordered, and resulted, any relevant abnormalities were considered. ED Course as of 04/05/24 1356 Mon Apr 04, 2024 1300 Bed requested [DN] ED Course User Index [DN] Michelle Miranda MD Diagnosis/Impression as of 04/05/24 1356 Chest pain, unspecified type Hypertensive emergency AdmissionCare Guideline: Chest Pain - OBS, Observation Based on the indications selected for the patient, the bed status of Observation was determined to be MET The following indications were selected as present at the time of evaluation of the patient: - Observation Care Admission Criteria - Observation care is indicated for 1 or more of the following: - Chest pain (or other anginal equivalent) not classified as low risk for acute coronary syndrome, as indicated by 1 or more of the following: - Patient classified as intermediate risk or high risk for acute coronary syndrome (eg, via use of a clinical decision tool or risk calculator (eg, HEART score greater than 3)) AdmissionCare documentation entered by: Michelle Miranda [facility] [employer], 28th edition, Copyright ? 2023 [employer] All Rights Reserved. [id number] Medical Decision Making Problems Addressed: Chest pain, unspecified type: acute illness or injury Hypertensive emergency: chronic illness or injury Amount and/or Complexity of Data Reviewed Labs: ordered. Decision-making details documented in ED Course. Radiology: ordered and independent interpretation performed. Decision-making details documented in ED Course. ECG/medicine tests: ordered and independent interpretation performed. Decision-making details documented in ED Course. Risk OTC drugs. Decision regarding hospitalization. Pulse Oximetry: is not hypoxic. Interpreted. Reassessment:stable Communication with compensation consultant: None. Limitations to patient care and compliance: none. Plan & Summary: The patient is a 58-year-old gentleman who is well-known to the ED here who presents for chest pain and blood pressure. The patient states that he has been compliant with her medication however his blood pressure continues to rise and he has substernal chest pressure. No alleviating or exacerbating factors. Patient was given IV hydralazine and nitroglycerin with minimal improvement of his blood pressure. He was also given clonidine as well. His troponin is negative. EKG demonstrates a paced rhythm. He will require blood pressure management and cardiac rule out. The patient was admitted to the medicine service for further inpatient management. Bryan Phu Scales is a 58 year old male presenting for complaint(s) listed within the note. . Admitted to . Case discussed and level of care determined with admitting provider. History, physical exam findings, results of visit, diagnosis, medication regimens and plan of future care have been considered. Additional MDM may be found in the ED course. Vital signs were rechecked before final disposition and determined to be expected for patient's clinical condition.. Disposition & Follow Up ED Disposition ED Disposition Admit - Observation Condition -- Comment Treatment Team: [facility] [[id number]] Current Discharge Medication List STOP taking these medications allopurinoL 300 mg tablet Comments: Reason for Stopping: apixaban 5 mg tablet Comments: Reason for Stopping: aspirin 81 mg chewable tablet Comments: Reason for Stopping: atorvastatin 40 mg tablet Comments: Reason for Stopping: busPIRone 5 mg tablet Comments: Reason for Stopping: carvediloL 25 mg tablet Comments: Reason for Stopping: diclofenac dodium (VOLTAREN) 1 % gel Comments: Reason for Stopping: empagliflozin (JARDIANCE) 10 mg tablet Comments: Reason for Stopping: furosemide 40 mg tablet Comments: Reason for Stopping: gabapentin 100 mg capsule Comments: Reason for Stopping: glipiZIDE 5 mg tablet Comments: Reason for Stopping: spironolactone (ALDACTONE) 25 mg tablet Comments: Reason for Stopping: lisinopriL 2.5 mg tablet Comments: Reason for Stopping: Lancets Misc Comments: Reason for Stopping: blood sugar diagnostic strip Comments: Reason for Stopping: Blood-Glucose Meter Kit Comments: Reason for Stopping: omeprazole 40 mg capsule Comments: Reason for Stopping: Future Appointments Tomorrow David Ladd MD [facility] Health Cardiology, [facility] In 2 days Brooks Barker NP [facility], [facility] In 2 weeks Rebecca Michele MD [facility] Health Pain Management, [facility] In 3 weeks [facility] DEVICE [facility] 1 [facility] Cardiac Device Clinic, [facility] Michelle Miranda Jr., MD Clinical Blind Slat Stapling Machine Operator [facility] Emergency Department [employer] is used frequently and may produce errors. Promptly contact for obvious discrepancies. Michelle Miranda MD 04/05/24 4210 [facility] 2024-04-04 11:50:00 Associated Order(s): Critical Care Critical Care Performed by: Michelle Miranda MD Authorized by: Michelle Miranda MD Critical care provider statement: Critical care time (minutes): 45 Critical care time was exclusive of: Separately billable procedures and treating other patients and teaching time Critical care was necessary to treat or prevent imminent or life-threatening deterioration of the following conditions: Circulatory failure Critical care was time spent personally by me on the following activities: Development of treatment plan with patient or surrogate, evaluation of patient's response to treatment, examination of patient, obtaining history from patient or surrogate, ordering and performing treatments and interventions, ordering and review of laboratory studies, ordering and review of radiographic studies, pulse oximetry, re-evaluation of patient's condition and review of old charts Care discussed with: admitting provider Comments: Due to a high probability of clinically significant, life threatening deterioration, the patient required my highest level of preparedness to intervene emergently and I personally spent this critical care time directly and personally managing the patient. This critical care time included obtaining a history; examining the patient; pulse oximetry; ordering and review of studies; arranging urgent treatment with development of a management plan; evaluation of patient's response to treatment; frequent reassessment; and, discussions with other providers. This critical care time was performed to assess and manage the high probability of imminent, life-threatening deterioration that could result in multi-organ failure. It was exclusive of separately billable procedures and treating other patients. [facility] 2024-04-04 11:50:00 AdmissionCare Guideline: Chest Pain - OBS, Observation Based on the indications selected for the patient, the bed status of Observation was determined to be MET The following indications were selected as present at the time of evaluation of the patient: - Observation Care Admission Criteria - Observation care is indicated for 1 or more of the following: - Chest pain (or other anginal equivalent) not classified as low risk for acute coronary syndrome, as indicated by 1 or more of the following: - Patient classified as intermediate risk or high risk for acute coronary syndrome (eg, via use of a clinical decision tool or risk calculator (eg, HEART score greater than 3)) AdmissionCare documentation entered by: Michelle Miranda [facility], 28th edition, Copyright ? 2023 [facility] All Rights Reserved. [id number] [facility] 2024-03-22 11:12:07 Referral placed for patient. T [facility] 2024-03-22 10:37:18 Pt is needing a referral for his cardiology visit. Please advise. Thank you. Taye Lakhani [facility] 2024-03-04 21:53:49 Pt given printed and verbal discharge instructions regarding effusion of left knee. Encouraged hydration, Discussed ibuprofen and to take with food to avoid GI distress. Discussed antibiotic therapy and to take until all completed unless adverse reaction occurs - if occurs, discontinue medication and follow up with pcp/seek medical attention Discussed tramadol/phenergan/Tylenol # 3 side affects and to avoid driving/operating machinery/or engaging in activities requiring alertness while taking. Pt verbalized understanding of instructions, pt awake alert oriented, resp reg unlabored, skin w/d, color appropriate for race, moves all ext well,pt encouraged to follow up with pcp. Advised to seek medical attention for new/prolonged/worsening of symptoms, Symptoms improved No adverse reaction to meds given in ER noted upon discharge Awake, alert oriented, resp reg unlabored, skin w/d, pt leaving amb with steady gait, in no apparent distress. Nadege Higuera RN [facility] 2024-03-04 19:32:51 L knee swelling started last Thursday, Reports not being able to walk on it. Surgical hx or R knee replacement. Jason Mcnair RN [facility] 2024-02-25 15:43:13 Images from the original note were not included. Sudha Wang [facility] 2024-02-25 15:06:59 Left detailed message with referral line number given. Soni Duffy RN [facility] 2024-02-25 13:34:36 1. Chronic pain of left knee Has the pain been seen by ortho? - Consult/Referral Pain Clinic [facility] 2024-02-25 13:31:02 Routing to provider for review. Fiona Mendoza MA [facility] 2024-02-25 13:23:19 Copied from [facility] #[id number]. Topic: Clinical - Medical Advice >> Feb 25, 2024 1:21 PM Patient Data Network Architect wrote: Bryan Parada is a 58 year old male calling for a referral for pain md. Patient is requesting a referral to: Dept: Pain MD Reason for referral: Pain in left knee Duration of problem: na Internal / External referral: internal Name of provider / location patient requesting: na Appt already scheduled?: no Jolene Gray [facility] 2024-02-25 08:09:18 Images from the original note were not included. Chasity Reynaga [facility] 2024-02-03 15:29:22 We have not attempted to contact pt, left detailed message, pt to call clinic if he requires more assistance. 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 Soni Duffy RN [facility] 2024-01-18 09:39:03 Bryan Parada is a 58 year old male Pt is calling to find out if the forms he dropped off on 6.12 has been completed Cate Cho [facility] 2024-01-13 11:47:53 Form has been placed in ROHIT Toney folder for completion. Soni Duffy RN [facility] 2024-01-13 10:12:47 SSI form drop-off, placed in nurse fax folder Chasity Reynaga [facility] 2023-11-25 14:12:58 Dr. Ladd's note and repeat lab orders faxed to [facility]. Jackie Mims RN [facility] 2023-11-24 13:05:28 Notified [facility] Via fax per Dr Ladd with clinical notes. T [facility] 2023-11-23 21:14:19 Recommended repeat labs to be done in around 2 to 3 weeks time. Continue the current cardiac medication without any further changes. Orders placed. Labs 11.19.2023 reviewed NT-proBNP elevated at 2049. Lipid panel acceptable. CMP shows mildly elevated creatinine at 2.05. LFTs within normal limits. TSH within normal limits CBC within acceptable stable limits. Magnesium within normal limits. MAR from the patient's [place] [facility] reviewed in detail from cardiac standpoint. Patient noted to be hydralazine 25 twice daily, Eliquis 5 mg twice daily, Lasix 40 twice daily, Lipitor 40 mg daily, aspirin 81 daily, magnesium oxide 400 daily, lisinopril 2.5 mg daily, Jardiance 10 mg daily, spironolactone 25 daily, carvedilol 25 twice daily [facility] 2023-11-19 08:30:00 Images from the original note were not included. Venipuncture collection performed by clean technique on the right anticubitus. Total of 1 attempts were made. Slight pressure and a bandage/dressing were applied to the site(s). The patient experienced no complications. The following specimens were processed according to instructions and sent to [facility] laboratories per lab order on 11/19/2023 : LT BLUE SST 1 RED LAV 1 PPT DK GREEN (LiHep) DK GREEN (SodH) HERZOG DK BLUE (K2) DK BLUE (S) ACD Blood Culture NIPT/NTD T [facility] 2023-11-18 14:30:00 NT-proBNP elevated at 2049. Lipid panel acceptable. CMP shows mildly elevated creatinine at 2.05. LFTs within normal limits. TSH within normal limits CBC within acceptable stable limits. Magnesium within normal limits. Please reach out to [place] to get the current medication list that he has been taking now so we can make further dose adjustment. T [facility] 2023-08-06 09:49:23 LVM to call clinic for TTE results and recommendations , letter sent RAFAEL Kerr RN [facility] 2023-08-05 09:34:40 Images from the original note were not included. LVM #2 to call clinic for results of TTE David Ladd MD P Cardiology Nurse Echocardiogram shows severe LVH with severely reduced LV systolic function 15 to 20%. No other significant changes noted. Follow-up as planned. RAFAEL Kerr RN [facility] 2023-08-04 14:47:42 Images from the original note were not included. LVM to call clinic for results of TTE David Ladd MD P Cardiology Nurse Echocardiogram shows severe LVH with severely reduced LV systolic function 15 to 20%. No other significant changes noted. Follow-up as planned. SIZER AND CUTTER OPERATOR [facility] 2023-03-28 05:54:44 Formatting of this n ote might be different from the original. Pt given printed and verbal discharge instructions regarding bleeding internal hemorrhoid and acute upper GI bleed, encouraged hydration. Prescriptions provided. Pt verbalized understanding of instructions, pt awake alert oriented, resp reg unlabored, skin w/d, color appropriate for race, moves all ext well, pt encouraged to follow up with pcp. Advised to seek medical attention for new/prolonged/worsening of symptoms. Symptoms addressed. No adverse reaction to meds given in ER noted upon discharge. PIV d'cd, dressing to site, catheter intact. Pt leaving via EMS, in no apparent distress. T [facility] 2023-03-28 02:51:11 Formatting of this n ote might be different from the original. Requested wheelchair van from [facility], spoke with Denise. ETA 120 minutes, around 0500. T [facility] 2023-03-27 20:21:06 Formatting of this n ote might be different from the original. Pt brought in by ems for bleeding after having bowel movement today bright red blood, right flank pain after bowel movement. 20 G to the right AC. T Jasper Copeland RN [facility] 2023-03-27 20:19:00 Formatting of this n ote is different from the original. [facility] Emergency Department Note Patient Name: Bryan Parada Date of : 1965 57 year old male Treatment Room: [facility] FT/[id number] Primary Care Physician: Kim Jones Patient Escorted by: Self [9] Mode of Arrival: EMS - [facility] ([place]) [43] EMS Treatment Prior to ED Arrival: Travel and Exposure Screening: Symptoms Does patient have any of these symptoms?: (not recorded) Exposure Screening Has patient had contact with someone with a communicable disease in the last month?: (not recorded) Diseases exposed to:: (not recorded) Is Patient ?: (not recorded) Exposure Date: (not recorded) Chief Complaint: Chief Complaint Patient presents with HEMORRHOIDS History of Present Illness: Patient is a 57 y/o M with PMHX Internal Hemorrhoid, CRI, CHF, COPD, CAD, Obesity who presents with acute onset of mild rectal bleeding after a BM. He is concerned that he is having a gastric bleed as there was blood on the toilet tissue and also in the toilet. Home Meds include: Apixiban 2.5 mg PO QD. 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 Arthritis Asthma Cataract Chronic combined systolic and diastolic CHF, NYHA class 4 09/22/2015 Diet-controlled diabetes mellitus 05/03/2015 Diverticulosis large intestine w/o perforation or abscess w/o bleeding 02/19/2017 Illiteracy patient has home health assist him with his medications LVH (left ventricular hypertrophy) 09/22/2015 Metabolic syndrome 06/23/2015 Nonischemic cardiomyopathy 09/22/2015 Obesity 06/23/2015 PRAVEEN (obstructive sleep apnea) 06/23/2015 Other and unspecified hyperlipidemia Stroke Uncontrolled hypertension 05/03/2015 Allergies: Allergies Allergen Reactions Imdur [Isosorbide Mononitrate] Other - See comments Severe hypotension, likely from severe LVH per Dr. Sanderson. Past Social History: Tobacco Use Never smoked or used smokeless tobacco. Vaping Use Never used Alcohol Use Not Currently. Comments: 1 cup of whiskey but last dirnk in December Drug Use Never. Sexual Activity Sexually active; Partners: Male, Female; Control/Protection: Condom. Past Surgical History: Past Surgical History: Procedure Laterality Date COLONOSCOPY N/A 02/19/2017 Surgeon: Fran Canchola MD; Location: [facility] OR Location ESOPHAGOGASTRODUODENOSCOPY N/A 07/20/2019 Surgeon: Maddi Ballesteros MD; Location: [facility] OR [facility] ESOPHAGOGASTRODUODENOSCOPY N/A 04/03/2021 Surgeon: Fran Trinh MD; Location: [facility] ([facility]) OR Location JOINT SURGERY Right 11/2016 Right knee PACEMAKERS INSERTION Review of Systems: Review of Systems Gastrointestinal: Positive for blood in stool (on toilet paper and in toilet). All other systems reviewed and are negative. Physical Exam: ED Triage Vitals [03/27/231999] Weight Actual or estimated Height BP (!) 126/110 Pulse 94 Resp 18 Temp 36.9 ?C (98.4 ?F) Temp source Oral SpO2 98 % Measured on Physical Exam Vitals and nursing note reviewed. Constitutional: General: He is awake. Appearance: Normal appearance. He is well-developed and overweight. HENT: Head: Normocephalic and atraumatic. Right Ear: External ear normal. Left Ear: External ear normal. Nose: Nose normal. Mouth/Throat: Mouth: Mucous membranes are moist. Pharynx: Oropharynx is clear. Eyes: General: Lids are normal. Vision grossly intact. Gaze aligned appropriately. Extraocular Movements: Extraocular movements intact. Conjunctiva/sclera: Conjunctivae normal. Pupils: Pupils are equal, round, and reactive to light. Neck: Trachea: Trachea and phonation normal. Cardiovascular: Rate and Rhythm: Normal rate and regular rhythm. Pulses: Normal pulses. Heart sounds: Normal heart sounds, S1 normal and S2 normal. Pulmonary: Effort: Pulmonary effort is normal. Breath sounds: Normal breath sounds. Abdominal: General: Abdomen is flat. Bowel sounds are normal. Palpations: Abdomen is soft. Genitourinary: Comments: deferred Musculoskeletal: General: Normal range of motion. Cervical back: Full passive range of motion without pain, normal range of motion and neck supple. Skin: General: Skin is warm and dry. Capillary Refill: Capillary refill takes less than 2 seconds. Neurological: General: No focal deficit present. Mental Status: He is alert and oriented to person, place, and time. Cranial Nerves: Cranial nerves 2-12 are intact. Sensory: Sensation is intact. Motor: Motor function is intact. Coordination: Coordination is intact. Deep Tendon Reflexes: Reflexes are normal and symmetric. Psychiatric: Attention and Perception: Attention and perception normal. Mood and Affect: Mood normal. Speech: Speech normal. Behavior: Behavior normal. Behavior is cooperative. Thought Content: Thought content normal. Cognition and Memory: Cognition normal. Radiology: CT ABDOMEN PELVIS WO CONTRAST Final Result Ordering physician: JORGE OTILIO Indication: Lower GI bleed COMPARISON: CT of the abdomen and pelvis dated 05/22/2022 TECHNIQUE: Axial images of the abdomen and pelvis were performed without the administration of intravenous contrast material. Images were reformatted in the coronal and sagittal plane. CT scan was performed according to ALARA (as low as reasonably achievable) policy. FINDINGS: The lung bases are clear. The heart is enlarged, with a multilead pacemaker. The noncontrast appearance of the liver, gallbladder, spleen, adrenal glands and pancreas is within normal limits. The kidneys are normal in appearance bilaterally without hydronephrosis or renal calculus. No ureteral or bladder calculus is appreciated. There is no abdominal aortic aneurysm. There is a minimal umbilical hernia containing only fat at the time of the exam. There is no free fluid in the pelvis. There are bilateral small inguinal hernias containing only fat at the time of the exam. There is no bowel obstruction. There is extensive sigmoid diverticulosis without evidence for acute diverticulitis. The appendix is identified and within normal limits. Bone windows through the abdomen and pelvis demonstrate no osseous destructive lesion. IMPRESSION No acute process identified in the abdomen or pelvis. No urinary system calculus or hydronephrosis. Extensive sigmoid diverticulosis without evidence for acute diverticulitis. Cardiomegaly, with a multilead pacemaker. Minimal umbilical hernia containing only fat at the time of the exam. Small bilateral inguinal hernias containing only fat at the time of the exam. Cardiomegaly, with multi lead pacemaker. RL: [id number] AFC: [id number] Lab Results: Lab Results CBC WITH DIFF - Abnormal Result Value Ref Range WBC 6.19 4.20 - 10.70 10*3/?L RBC 5.44 4.26 - 5.52 10*6/?L HGB 14.2 12.2 - 16.4 g/dL HCT 44.0 38.4 - 49.3 % MCV 80.9 (*) 81.7 - 95.6 fL MCH 26.1 26.1 - 32.7 pg MCHC 32.3 31.2 - 35.0 g/dL RDW-SD 47.8 38.5 - 51.6 fL RDW-CV 16.4 (*) 12.1 - 15.4 % PLT 198 150 - 328 10*3/?L MPV 10.4 9.8 - 13.0 fL NRBC/100 WBC 0.0 0.0 - 10.0 /100 WBCs NRBC x10^3 <0.01 10*3/?L GRAN MAT (NEUT) % 59.3 % IMM GRAN % 0.30 % LYMPH % 27.8 % MONO % 10.5 % EOS % 1.8 % BASO % 0.3 % GRAN MAT x10^3(ANC) 3.67 1.99 - 6.95 10*3/uL IMM GRAN x10^3 <0.03 0.00 - 0.06 10*3/uL LYMPH x10^3 1.72 1.09 - 3.23 10*3/uL MONO x10^3 0.65 0.36 - 1.02 10*3/uL EOS x10^3 0.11 0.06 - 0.53 10*3/uL BASO x10^3 <0.03 0.01 - 0.09 10*3/uL COMP. METABOLIC PANEL (94571) - Abnormal NA 138 135 - 145 mmol/L K 4.2 3.5 - 5.0 mmol/L CL 102 98 - 108 mmol/L CO2 TOTAL 28 23 - 31 mmol/L AGAP 8 2 - 16 BUN 41 (*) 7 - 23 mg/dL GLUCOSE 118 (*) 70 - 110 mg/dL CREATININE 1.93 (*) 0.60 - 1.25 mg/dL TOTAL BILI 0.6 0.1 - 1.1 mg/dL CALCIUM 9.2 8.6 - 10.6 mg/dL T PROTEIN 8.1 6.3 - 8.2 g/dL ALBUMIN 4.2 3.5 - 5.0 g/dL ALK PHOS 73 34 - 122 U/L ALTv 26 5 - 50 U/L AST(SGOT) 29 13 - 40 U/L eGFR 36.2 mL/min/1.73m2 URINALYSIS OCCULT (GUAIAC) BLOOD EKG: If EKG completed, see Procedure Note. Orders and Treatments: Orders Placed This Encounter Procedures CT ABDOMEN PELVIS WO CONTRAST CBC WITH DIFF COMP. METABOLIC PANEL (05950) URINALYSIS OCCULT (GUAIAC) BLOOD Orders Placed This Encounter Medications HYDROcodone-acetaminophen (NORCO 5) 5-325 mg tablet 1 tablet hydrocortisone 25 mg suppository First Provider Eval: ED Events Date/Time Event User Comments 03/27/232154 Medical Screening Begins JORGE YAÑEZ -- 03/27/232154 First Provider Evaluation JORGE YAÑEZ -- No notes of EC Admission Criteria type on file. ED COURSE ED Course as of 03/28/23226 Sat Mar 28, 2023123 PMHX: CRI [KV] 0124 RDW-CV(!): 16.4 [KV] 0124 MCV(!): 80.9 [KV] 0124 CREATININE(!): 1.93 [KV] 0124 BUN(!): 41 [KV] 0124 CREATININE(!): 1.93 [KV] ED Course User Index [KV] Jorge Yañez NP Diagnosis/Impression as of 03/28/23226 Acute upper GI bleed Internal hemorrhoid, bleeding Procedures: Procedures MDM: Medical Decision Making Patient is a 57 y/o M with PMHX Internal Hemorrhoid who presents with acute onset of mild rectal bleeding after a BM. He is concerned that he is having a gastric bleed as there was blood on the toilet tissue and also in the toilet. Home Meds include: Apixiban 2.5 mg PO QD. Differential DX: 1. Upper GI Bleed 2. Lower GI Bleed 3. Internal Hemorrhoid 4. External Hemorrhoid Imaging: CT ABD/Pel w/o Contrast: IMPRESSION: No acute process identified in the abdomen or pelvis.No urinary system calculus or hydronephrosis.Extensive sigmoid diverticulosis without evidence for acute diverticulitis. Cardiomegaly, with a multilead pacemaker. Minimal umbilical hernia containing only fat at the time of the exam. Small bilateral inguinal hernias containing only fat at the time of the exam. Cardiomegaly, with multi lead pacemaker. Home med includes Apixiban 2.5 mg PO QD. Continue this medication at DC to Home Labs: CBC, CMP, PT/INR Abnormal Labs: BUN 41, Scr 19.3 w/ PMHX: CRI Digital Rectal Exam: Internal Hemorrhoid 6:00 PM position. Guaiac testing with slight blood noted on card (light blue) Amount and/or Complexity of Data Reviewed Labs: ordered. Decision-making details documented in ED Course. Radiology: ordered. Decision-making details documented in ED Course. Risk Prescription drug management. Flowsheet Documentation: Scoring Tools: No data recorded Disposition/Condition: ED Disposition ED Disposition Disch - Home Condition Stable Comment -- Discharge Medications: Patient's Medications START taking these medications HYDROCORTISONE 25 MG SUPPOSITORY Insert 1 Suppository into rectum 2 (two) times daily as needed for Rectal itching/pain for up to 15 doses. CONTINUE taking these medications which have NOT CHANGED ACETAMINOPHEN 650 MG CR TABLET Take 1 tablet by mouth every 8 (eight) hours as needed for Pain or Fever. ACETAMINOPHEN-CODEINE 300-30 MG TABLET Take 1 tablet by mouth as needed (take daily as needed for severe right knee pain, s/p TKA, heart failure, unable to take NSAIDS). Indications: chronic pain APIXABAN 2.5 MG TABLET Take 1 tablet by mouth in the morning and 1 tablet in the evening. Indications: atrial fibrillation ASPIRIN 81 MG EC TABLET Take 1 tablet by mouth daily. ATORVASTATIN 80 MG TABLET Take 1 tablet by mouth at bedtime. BLOOD SUGAR DIAGNOSTIC STRIP Check blood sugar 2 times a day. E11.9. Brand per insurance. BLOOD-GLUCOSE METER KIT Check sugars 2 times a day. Dx. Code E11.9 Brand per Insurance CARVEDILOL 25 MG TABLET Take 25 mg by mouth in the morning and 25 mg in the evening. Take with meals. CHOLECALCIFEROL, VITAMIN D3, 25 MCG (1,000 UNIT) TABLET Take 1 tablet by mouth daily. DICLOFENAC SODIUM (VOLTAREN) 1 % GEL Apply to area(s) 4 (four) times daily. Apply 4 g qid DOCUSATE SODIUM 100 MG TABLET Take 1 tablet by mouth in the morning. EMPAGLIFLOZIN (JARDIANCE) 10 MG Take 1 tablet by mouth in the morning. GABAPENTIN 100 MG CAPSULE Take 1 capsule by mouth 3 (three) times daily. GLIPIZIDE 5 MG TABLET Take 5 mg in the morning and 5 mg in the evening. LANCETS MISC Check sugars 1 times a day. Dx Code E11.9. Brand per insurance. LISINOPRIL 2.5 MG TABLET Take 2.5 mg by mouth in the morning. MAGNESIUM OXIDE (MAGOX) 400 MG (241.3 MG MAGNESIUM) TABLET Take 400 mg by mouth in the morning. OMEPRAZOLE 40 MG CAPSULE Take 1 capsule by mouth daily. SPIRONOLACTONE (ALDACTONE) 25 MG TABLET Take 25 mg by mouth in the morning. TIZANIDINE 2 MG TABLET Take 2 mg by mouth every 8 (eight) hours as needed. START taking Modified Medications as Prescribed No medications on file STOP taking these medications No medications on file Follow-up: Contact information for follow-up Kim Jones MD Specialty: IM-GERIATRIC MEDICINE Relationship: PCP - [address] [place] [address] Electronically signed by: Jorge Yañez NP 03/28/23226 Associated attestation - Doris Amaral MD - 03/28/2023 3:21 AM CDT Addendum I was personally available for consultation in the Emergency Department during this encounter and patient evaluation by ROHIT Yañez. 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 Vascular access was obtained with micro- puncture needle and a 6 Fr. sheath was placed OTW without difficulty. Diagnostic Coronary Angiography A 6 Fr. JL4 diagnostic catheter was advanced over a J-tipped wire to the ascending aorta. The wire was removed, the catheter aspirated to ensure no air was in the system and flushed in the usual fashion. The diagnostic catheter engaged the left main coronary artery without difficulty. Pictures of the left coronary system were taken in multiple angiographic views. The diagnostic catheter used for the left coronary was then removed over the wire and a 6 Fr. JR4 diagnostic catheter was advanced over a wire to the ascending aorta.The wire was removed, the catheter aspirated to ensure no air was in the system and flushed in the usual fashion. The diagnostic catheter engaged the right coronary artery without difficulty. Pictures of the right coronary system were taken in multiple angiographic views. The diagnostic RCA catheter was removed from the descending aorta over a J wire. A left heart catheterization without ventriculogram was performed. A 6 Fr. pigtail catheter was placed over the wire and guided into the left ventricle. The wire was removed, the catheter aspirated to ensure no air was in the system and flushed in the usual fashion. LVEDP was measured 10 mmHg. The catheter was then pulled back across the aortic valve and there was NO significant gradient across the valve. The pigtail catheter was then removed from the descending aorta over a J wire. The RCFA was closed by deploying a Mynx closue device without any complication. Findings: Coronary Angiography Findings: Dominance: LEFT Left Main: Mild non-occlusive plaques Left Anterior Descending: Mild non-occlusive plaques Diagonal artery: Mild non-occlusive plaques Left Circumflex: Mild non-occlusive plaques OM1: Mild non-occlusive plaques OM2: Mild non-occlusive plaques Right Coronary: NON-DOMINANT PDA: Mild non-occlusive plaques PLV: Mild non-occlusive plaques Complications: none Estimated blood loss in ml's: 20 Specimens removed/altered: none Implants: none at 1326 RPT #: [id number] END OF REPORT [facility] 2021-03-01 12:50:00 [facility] ([facility]) Cardiology Consultation REPORT#:[id number] REPORT STATUS: Signed DATE:03/01/21 TIME:1250 PATIENT: BRYAN PARADA UNIT #: [id number] ROOM/BED: [place] [address] : 66 AGE: 55 SEX: M ATTEND: Stephan Juan MD ADM AUTHOR: Anaya Nieto MD * ALL edits or amendments must be made on the electronic/computer document * History of Present Illness HPI Reason for consult: CHF CHEST PAIN Chief complaint: CHEST PAIN Free Text HPI Notes Free Text HPI Notes: This is a 55 y/o male with PMHx of T2DM, HTN, CHF w/ dual chamber AICD ( biotronik), and multiple strokes x4 per pt comes in with chest pain and numbness radiating to left arms with dizziness and shortness of breath that started last night. pt reported he waited till this moring to come in to be seen. History - Adult longitudinal Past medical history: Reports: Congestive heart failure, Coronary artery disease, Diabetes mellitus, Hypertension, Dyslipidemia, Ischemic stroke. Denies: Alcoholism/subst abuse. Additional medical history: Nonobstructive CAD Hypertension CHF status post dual chamber AICD (biotronik) Diabetes mellitus type 2 Dyslipidemia Additional surgical history: Knee surgery Status post AICD/PPM Additional family history: Both parents had hypertension Alcohol use: Denies EtOH use Drug use: Denies recreational drugs Smoking status: Smoking status for patients 13 years old or older: Never Smoker Other social history: Lives alone Allergies: Coded Allergies: No Known Allergies (11/30/20) Occupation: unemployed Review of Systems Constitutional: Denies: chills, fatigue, fever. Respiratory: Reports: DELGADO (dyspnea on exertion), SOB. Cardiovascular: Reports: chest pain. GI: Denies: abdominal pain. : Denies: dysuria. Neuro: Denies: confusion, dizziness, focal weakness. 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 Hypertensive urgency 2. Chest pain 3. CHF (congestive heart failure) 4. Hypertension 5. Elevated troponin I level 6. Chest pain at rest Free Text DxA P Notes Free Text DxA P Notes: 1) Elevated troponin: CHF exacerbation, not NSTEMI 2) CHF S/P BiVICD, etiology ?? 3) HTN: medical therapy 4) History of CVA: residula left hemiparesis Continue medicla therapy Needs [facility] at 1335 RPT #: [id number] END OF REPORT [facility] 2021-02-28 16:20:00 [id number] [facility] [address] [place] [address] PATIENT NAME: BRYAN PARADA ADMIT DATE: 02/27/21 ACCOUNT NO: [id number] ROOM NO: [id number] AGE: 55 REPORT TYPE: eECHOCARDIOGRAM REPORT SEX: M ADMITTING PHYSICIAN: Stephan Juan MD ATTENDING PHYSICIAN: Stephan Juan MD *[facility]* [id number] [place] [id number] Transthoracic Echocardiogram Patient: Bryan Parada Study Date: 02/28/2021 BP: Location: [facility] URN: [id number] : 1965 Age: 55 Height: 74 in / 188 cm Gender: M Weight: 321.2 lb / 146 kg BMI/BSA: 41.3 kg/m 2 / 2.82 m 2 *Ordering Physician: Stephan Llamas *Interpreting Physician: * Anaya Nieto *Internal Affairs Commander: Sumanth Sanchez ------ Indications: Chest Pain, unspecified. ------ Study data: Transthoracic echocardiogram. Complete 2D, complete spectral Doppler, and color Doppler. Location: Bedside. Patient status: Inpatient. Patient room number: MS05. Study status: Routine. ------ Findings Left ventricle: The cavity size is dilated. Wall thickness is moderately increased. Systolic function is severely reduced. The estimated ejection fraction is 20-24%. Regional wall motion abnormalities: Akinesis of apical and septal wall was identified. Features are consistent with a pseudonormal left ventricular filling pattern, with concomitant abnormal relaxation and increased filling pressure (grade 2 diastolic dysfunction). Right ventricle: The cavity size is normal. Systolic function is PATIENT NAME: BRYAN PARADA normal. Left atrium: The atrium is normal in size. Right atrium: The atrium is normal in size. Aorta: Aortic root: The aortic root is normal in size. Aortic valve: The valve is structurally normal. The valve is trileaflet. There is no evidence of stenosis. There is mild regurgitation. Mitral valve: The valve is structurally normal. There is no evidence of stenosis. There is mild regurgitation. Tricuspid valve: The valve is structurally normal. There is mild regurgitation. Pulmonic valve: The valve is structurally normal. There is mild regurgitation. Pericardium: There is no pericardial effusion. Pulmonary arteries: The main pulmonary artery is normal-sized. Systemic veins: Inferior vena cava: The vessel is normal in size. ------ Measurements Left ventricle Value 02/05/2021 Ref YANETH, LAX 5.2 cm 6.8 4.2 - 5.8 ESD, LAX 4.7 cm 5.0 2.5 - 4.0 ESD/bsa, LAX 1.7 cm/m 2 2.2 1.3 - 2.1 FS, LAX 9 % 26 25 - 43 PW, ED 1.7 cm 1.2 0.6 - 1.0 IVS/PW, ED 1.03 0.97 ------ EF 19 % 50 52 - 72 LVOT Value 02/05/2021 Ref Diam, S 2.02 cm 2.01 ------ Area 3.2 cm 2 3.2 ------ Peak sommer, S 0.94 m/sec -0.76 ------ Mean sommer, S 0.69 m/sec ------ VTI, S 13.9 cm ------ Peak grad, S 4 mm Hg 2 ------ Mean grad, S 2 mm Hg ------ SV 45 ml ------ SV/bsa 16 ml/m 2 ------ Ventricular septum Value 02/05/2021 Ref IVS, ED 1.7 cm 1.2 0.6 - 1.0 Right ventricle Value 02/05/2021 Ref YANETH, LAX 3.2 cm 3.7 ------ PATIENT NAME: BRYAN PARADA Pressure, S 39 mm Hg 31 ------ Left atrium Value 02/05/2021 Ref AP dim, ES 3.88 cm 3.00 - 4.00 AP dim, ES MM 2.7 cm 3.5 3.0 - 4.0 LA/Ao root 0.66 1.1 ------ ratio, MM Aortic valve Value 02/05/2021 Ref Leaflet sep, 2.11 cm 2.14 ------ MM Peak v, S 0.95 m/sec 0.9 ------ Mean v, S 0.77 m/sec ------ VTI, S 14.1 cm ------ Mean grad, S 2.5 mm Hg ------ Peak grad, S 3.6 mm Hg 3.3 ------ LVOT/AV, VTI 0.99 ------ ratio ANITA, VTI 3.17 cm 2 ------ LVOT/AV, 0.99 ------ Vpeak ratio ANITA, Vmax 3.19 cm 2 2.66 ------ AR peak v 3.27 m/sec ------ AR decel 209 cm/s 2 ------ AR decel time 1560 ms ------ AR PHT 452 ms ------ AR peak grad 43 mm Hg ------ Mitral valve Value 02/05/2021 Ref E-septal 1.6 cm ------ separation E-F slope 0.05 m/sec ------ Peak E 0.85 m/sec -0.03 ------ Peak A 0.04 m/sec 0.95 ------ Decel time 116 ms 236 ------ PHT 34 ms 82 ------ Peak grad, D 2.9 mm Hg 5.4 ------ Peak E/A 20.81 0.65 ------ ratio MVA, PHT 6.5 cm 2 2.7 ------ MR peak v 2.86 m/sec ------ Tricuspid valve Value 02/05/2021 Ref TR peak v 3.01 m/sec -2.41 <=2.8 Peak RV-RA 36 mm Hg 23 ------ grad, S Aortic root Value 02/05/2021 Ref Root diam, ED 4.02 cm 3.17 ------ MM Ascending aorta Value 02/05/2021 Ref PATIENT NAME: BRYAN PARADA AAo AP diam, 3.0 cm 3.3 ------ S AAo AP 1.1 cm/m 2 1.4 ------ diam/bsa, S Pulmonary artery Value 02/05/2021 Ref Pressure, S 33.6 mm Hg 27.1 ------ Systemic veins Value 02/05/2021 Ref Estimated CVP 3 mm Hg 8 ------ ------ Conclusions Summary: Left ventricle: The cavity size is dilated. Wall thickness is moderately increased. Systolic function is severely reduced. The estimated ejection fraction is 20-24%. Akinesis of apical and septal wall was identified. Features are consistent with a pseudonormal left ventricular filling pattern, with concomitant abnormal relaxation and increased filling pressure (grade 2 diastolic dysfunction). Prepared and electronically signed by Anaya Nieto 02/28/2021 16:20 at 1620 PATIENT NAME: BRYAN PARADA [facility] 2021-02-28 10:38:00 [facility] ([facility]) Hospitalist Progress Note REPORT#:[id number] REPORT STATUS: Signed DATE:02/28/21 TIME:1038 PATIENT: BRYAN PARADA UNIT #: [id number] [address]: [address] : [birth year] AGE: 55 SEX: M ATTEND: Stephan Juan MD ADM AUTHOR: Stephan Juan MD * ALL edits or amendments must be made on the electronic/computer document * Subjective Chief Complaint: - No acute events since admission. - Patient has reproducible chest pain, reported last admission was 1 week ago for the same reason. Review of Systems Constitutional: Denies: chills, fever. Skin: Denies: itching. Eyes: Denies: redness, discharge. ENT: Denies: earache, hearing loss. Respiratory: Denies: SOB, wheezing. Cardiovascular: Reports: chest pain. Denies: palpitations. GI: Denies: abdominal pain, nausea, vomiting. : Denies: flank pain. Heme: Denies: adenopathy. Endocrine: Denies: cold intolerance. Neuro: Denies: headache, lightheaded. Psych: Denies: agitation, anxiety. Objective General VS/I O: Vital Signs: Date Time Temp Pulse Resp B/P B/P Pulse O2 O2 Flow FiO2 Mean Ox Delivery Rate 02/27 1800 36.9 84 17 167/89 115 100 Room air 02/27 1406 79 18 165/90 115 98 Room air 02/27 1400 97 02/27 1218 36.6 88 18 179/123 141 97 Room air 24 hour I O ending at 0700: 02/28 0700 02/27 1900 Intake Total Output Total Balance Patient 145.455 kg Weight Weight Estimated Measurement Method PATIENT WEIGHT: Weight (lb): Weight (oz): Weight (kg): 145.455 Medications: Active Meds + DC'd Last 24 Hrs Acetaminophen 650 MG Q6H PRN PRN PO Albumin Human 3 ML ONCE PRN IV Insulin Human Lispro S/SCALE MED AC HS SUBQ Furosemide 40 MG Q12H IV Morphine Sulfate 4 MG Q3H PRN PRN IV (DC) Heparin Sodium (Porcine) 5,000 UNIT Q8HR SUBQ Clopidogrel Bisulfate 75 MG DAILY PO Dextrose/Water 50 ML ASDIR PRN IV (CKD) Docusate Sodium 100 MG DAILY PRN PRN PO Famotidine 20 MG ONCE ONE PO (DC) Hydralazine HCl 10 MG Q6H PRN PRN IV Ondansetron HCl 4 MG Q4H PRN PRN IV Aspirin 81 MG DAILY PO Atorvastatin Calcium 80 MG 1700 PO Furosemide 40 MG X1ED STA IV (DC) Iopamidol 0 .STK-MED ONE .ROUTE (DC) Sodium Chloride 100 ML .STK-MED ONE IV (DC) Morphine Sulfate 4 MG X1ED STA IV (DC) Aspirin 324 MG X1ED STA PO (CAN) Morphine Sulfate 4 MG X1ED STA IV (DC) Nutrition assessment: The data set between the solid lines has been imported from the dietitian's assessment. Any exceptions have been noted under Provider comments. BMI Calculated: 41.2 Nutrition related diagnosis: Nutrition diagnosis details: Nutrition problem: Nutrition etiology: Nutrition signs and symptoms: Nutrition prescription: Dietitian name: Assessment completed: Provider comments on imported dietitian assessment: Physical Exam General appearance: alert, awake, oriented Head/Eyes: atraumatic, EOMI, normocephalic ENT: moist mucosal membranes, normal nose Neck: full range of motion, non-tender, supple/no meningismus Cardiovascular: normal heart sounds, regular rate rhythm Respiratory: aerating well, clear to auscultation, symmetric expansion, no distress Abdomen: non-tender, normal bowel sounds, soft, no distention Extremities: moves all Musculoskeletal: normal inspection, straight leg raise neg 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, oriented X 3, normal speech Skin: dry Psychiatry: normal affect, normal judgment/insight, normal mood Results Findings/Data: Laboratory Tests 02/28 1252 Chemistry Sodium (134 - 147 mmol/L) 140 Potassium (3.4 - 5.0 mmol/L) 4.2 Chloride (100 - 108 mmol/L) 108 Carbon Dioxide (21 - 32 mmol/L) 26 Anion Gap (4.0 - 15.0 GAP calc) 6.0 BUN (7 - 18 MG/DL) 27 H Creatinine (0.8 - 1.3 MG/DL) 1.7 H Glomerular Filtr Rate (>60 estGFR) 54 L Glucose (70 - 110 MG/DL) 107 POC Glucose (70 - 110 mg/dL) 107 Calcium (8.5 - 10.1 MG/DL) 8.9 Total Creatine Kinase (26 - 192 Unit/L) 318 H Troponin I (0.000 - 0.045 NG/ML) 0.022 < 0.015 NT-Pro-B Natriuret Pep (0 - 100 PG/ML) 1727 H Laboratory Tests 02/27 1252 Coagulation D-Dimer (215 - 500 ng/mLFEU) 939 *H Laboratory Tests 02/27 1252 Hematology WBC (3.5 - 11.0 K/mm3) 4.9 RBC (4.70 - 6.10 M/mm3) 6.09 Hgb (12.3 - 15.9 G/DL) 15.4 Hct (35.8 - 46.7 %) 48.9 H MCV (86.3 - 98.9 Fl) 80.3 L MCH (28.9 - 34.4 pg) 25.3 L MCHC (32.1 - 34.5 G/DL) 31.5 L RDW (11.5 - 14.5 SD) 15.9 H Plt Count (150 - 450 K/mm3) 226 MPV (7.0 - 9.6 fL) 11.20 H Laboratory Tests 02/27 1342 Serology SARS-CoV-2 Ag (Rapid) (Negative) NEGATIVE Laboratory Tests 02/28 0550 Toxicology Urine Opiates Screen (<2000 NG/ML SCcutoff) NEGATIVE Urine Methadone Screen (<300 NG/ML SCcutoff) NEGATIVE Urine Barbiturates (<200 NG/ML SCcutoff) NEGATIVE Ur Phencyclidine Scrn (<25 NG/ML SCcutoff) NEGATIVE Ur Amphetamines Screen (<1000 NG/ML SCcutoff) NEGATIVE U Benzodiazepines Scrn (<200 NG/ML SCcutoff) NEGATIVE Urine Cocaine Screen (<300 NG/ML SCcutoff) NEGATIVE Urine Cannabinoids (<50 NG/ML SCcutoff) NEGATIVE Radiology data: Recent Impressions: RADIOLOGY - XR CHEST 1 V 02/27 1315 Report Impression - Status: SIGNED Entered: 02/27/2021 0497 IMPRESSION: Less congestive appearance of the chest with no acute findings. Impression By: Zena Marsh M.D. CAT SCAN - CTA CHEST FOR PE 02/27 1750 Report Impression - Status: SIGNED Entered: 02/27/2021 1838 IMPRESSION: 1. No evidence for pulmonary embolism, aneurysm or dissection. 2. Cardiomegaly with left ventricular configuration. Pacemaker in place with no cardiac decompensation. 3. Otherwise no acute findings in the chest. Impression By: Zena Marsh M.D. Diagnosis, Assessment Plan Consultants: cardiology Free Text DxA P Notes Free text DxA P notes: 1. Chest pain at rest Consult Cardiology telemetery serial trop, initial trop is negative pepcid as GI prophylaxis disposition: home when stable I have spend over 55 minutes in review of chart, labs, diagnostics, PE, discussion of POC with pt, enteing orders, and documentation. 2. Acute on chronic systolic (congestive) heart failure lasix IV January 03, 2021 Echo EF<20% BNP is elevated monitor lytes closely telemetry 3. Hypertension hydralazine IV prn b/p control with parameters 4. Diabetes mellitus insulin sliding scale with glucose check ac/hs. 5. Dyslipidemia supportive restart home meds 02/28/2021: - No acute events since admission. - Chest pain, continue ASA, plavix and lipitor. will get ECHO and cardiology to evaluate. - HFrEF, on IV lasix, will shift to oral. Patient is euvolimic. - HTN, BP controlled, hydralazine 10 mg Q6 h prn if BP>150. - DM, on sliding scale. - HLD, on lipitor. - DVT prophylaxis. - Discharge once cleared by cardiology. Quality: Gen Med Crit Care Current Medications Current medication review: I attest that the foregoing medication list in the medical record is true, accurate, and complete to the best of my knowledge. VTE Prophylaxis VTE prophylaxis initiated: yes BMI Screening > 25 or < 18.5 BMI status/follow-up: abnl BMI, pt to F/U w/PCP HTN Screening/Follow-up B/P assess/follow-up: pre-existing hx of HTN at 1045 RPT #: [id number] END OF REPORT [facility] 2021-02-27 20:27:00 [facility] ([facility]) Hospitalist History Physical REPORT#:[id number] REPORT STATUS: Signed DATE:02/27/21 TIME:2026 PATIENT: BRYAN PARADA UNIT #: [id number] ROOM/BED: [place] [address] : 66 AGE: 55 SEX: M ATTEND: Stephan Juan MD ADM AUTHOR: Eliazar Napier [employer] DEVELOPER * ALL edits or amendments must be made on the electronic/computer document * History of Present Illness HPI Chief complaint: Chest pain PCP: PCP: No Primary or Family Physician HPI: This is a 55 y/o male with PMHx of T2DM, HTN, CHF w/ dual chamber AICD ( biotronik), and multiple strokes x4 per pt comes in with chest pain and numbness radiating to left arms with dizziness and shortness of breath that started last night. pt reported he waited till this moring to come in to be seen. Informant/historian: patient History Past Medical Surgical Hx Additional medical history: Nonobstructive CAD Hypertension CHF status post dual chamber AICD (biotronik) Diabetes mellitus type 2 Dyslipidemia Additional surgical history: Knee surgery Status post AICD/PPM Family History Additional family history: Both parents had hypertension Social History Alcohol use: Denies EtOH use Drug use: Denies recreational drugs Smoking status: Smoking status for patients 13 years old or older: Never Smoker Other social history: Lives alone Medication/Allergy-Vaccine Hx Allergies: Coded Allergies: No Known Allergies (11/30/20) Review of Systems Cardiovascular: Reports: chest pain. Neuro: Reports: numbness (LEFT ARM). All systems rev neg: except as noted Physical Exam VS/I O: Vital Signs Date Temp Pulse Resp B/P B/P Mean Pulse Ox FiO2 02/27 97.9 79-88 18 165-179/90-123 115-141 97-98 Last Documented: Result Date Time Pulse Ox 98 02/27 1406 B/P 165/90 02/27 1406 B/P Mean 115 02/27 1406 O2 Delivery Room air 02/27 1406 Pulse 79 02/27 1406 Resp 18 02/27 1406 Temp 97.9 02/27 1218 Patient Weight and BMI Weight (kg): 145.455 BMI: 41.2 General appearance: alert, awake, oriented, conversational, mental status normal Head/Eyes: atraumatic, EOMI, normocephalic ENT: moist mucosal membranes, normal nose Neck: full range of motion, non-tender, supple/no meningismus Cardiovascular: normal heart sounds, regular rate rhythm Respiratory: aerating well, clear to auscultation, symmetric expansion, no distress Abdomen: non-tender, normal bowel sounds, soft, no distention Abdomen quadrants: LLQ normal bowel sounds, LUQ normal bowel sounds, RLQ normal bowel sounds, RUQ normal bowel sounds Extremities: moves all Musculoskeletal: normal inspection, straight leg raise neg 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, oriented X 3, normal speech Lori Coma Score: Copyright Sir Greg Carver Copyright [facility] Greg Carver Eye opening: (4) Spontaneous Verbal response: (5) Oriented Best motor response: (6) Obeys commands GCS Score: 15 Skin: dry Psychiatry: normal affect, normal judgment/insight, normal mood Results Findings/Data: Laboratory Tests: 02/27 02/27 1342 1252 Chemistry Sodium (134 - 147 mmol/L) 140 Potassium (3.4 - 5.0 mmol/L) 4.2 Chloride (100 - 108 mmol/L) 108 Carbon Dioxide (21 - 32 mmol/L) 26 Anion Gap (4.0 - 15.0 GAP calc) 6.0 BUN (7 - 18 MG/DL) 27 H Creatinine (0.8 - 1.3 MG/DL) 1.7 H Glomerular Filtr Rate (>60 estGFR) 54 L Glucose (70 - 110 MG/DL) 107 Calcium (8.5 - 10.1 MG/DL) 8.9 Total Creatine Kinase (26 - 192 Unit/L) 318 H Troponin I (0.000 - 0.045 NG/ML) < 0.015 NT-Pro-B Natriuret Pep (0 - 100 PG/ML) 1727 H Coagulation D-Dimer (215 - 500 ng/mLFEU) 939 *H Hematology WBC (3.5 - 11.0 K/mm3) 4.9 RBC (4.70 - 6.10 M/mm3) 6.09 Hgb (12.3 - 15.9 G/DL) 15.4 Hct (35.8 - 46.7 %) 48.9 H MCV (86.3 - 98.9 Fl) 80.3 L MCH (28.9 - 34.4 pg) 25.3 L MCHC (32.1 - 34.5 G/DL) 31.5 L RDW (11.5 - 14.5 SD) 15.9 H Plt Count (150 - 450 K/mm3) 226 MPV (7.0 - 9.6 fL) 11.20 H Serology SARS-CoV-2 Ag (Rapid) (Negative) NEGATIVE Laboratory Tests 02/27/21 1252: [Embedded Image Not Available] Radiology data: Recent Impressions: RADIOLOGY - XR CHEST 1 V 02/27 1315 Report Impression - Status: SIGNED Entered: 02/27/2021 1338 IMPRESSION: Less congestive appearance of the chest with no acute findings. Impression By: Zena Marsh M.D. CAT SCAN - CTA CHEST FOR PE 02/27 1750 Report Impression - Status: SIGNED Entered: 02/27/2021 1838 IMPRESSION: 1. No evidence for pulmonary embolism, aneurysm or dissection. 2. Cardiomegaly with left ventricular configuration. Pacemaker in place with no cardiac decompensation. 3. Otherwise no acute findings in the chest. Impression By: Zena Marsh M.D. Results: labs reviewed Diagnosis, Assessment Plan Problem List/A P: 1. Chest pain at rest Consult Cardiology telemetery serial trop, initial trop is negative pepcid as GI prophylaxis disposition: home when stable I have spend over 55 minutes in review of chart, labs, diagnostics, PE, discussion of POC with pt, enteing orders, and documentation. 2. Acute on chronic systolic (congestive) heart failure lasix IV January 03, 2021 Echo EF<20% BNP is elevated monitor lytes closely telemetry 3. Hypertension hydralazine IV prn b/p control with parameters 4. Diabetes mellitus insulin sliding scale with glucose check ac/hs. 5. Dyslipidemia supportive restart home meds Consultants: cardiology Plan discussed with: patient, nurse Resuscitation discussion: Discussed with: patient Code status: full code Quality: Gen Med Crit Care Current Medications Current medication review: I attest that the foregoing medication list in the medical record is true, accurate, and complete to the best of my knowledge. Unable to obtain: Unable to obtain an accurate home medication list at this time. The patient is in an urgent or emergent medical situation where time is of the essence. To delay treatment would jeopardize the patient's health status on the day of the encounter. VTE Prophylaxis VTE prophylaxis initiated: yes BMI Screening > 25 or < 18.5 Patient's BMI: Current BMI: 41.2 BMI status/follow-up: abnl BMI, pt to F/U w/PCP HTN Screening/Follow-up Last documented vitals: Last Documented: Result Date Time Pulse Ox 98 02/27 1406 B/P 165/90 02/27 1406 B/P Mean 115 02/27 1406 O2 Delivery Room air 02/27 1406 Pulse 79 02/27 1406 Resp 18 02/27 1406 Temp 97.9 02/27 1218 B/P assess/follow-up: pre-existing hx of HTN Blood pressure ranges/guide: Screening for Hypertension and follow up measure #317 Blood pressure parameters Normal B/P SBP </= 119 DBP </= 79 Pre-hypertensive SBP 120-139 DBP 80-89 Hypertensive SBP >/= 140 DBP >/= 90 at 2105 RPT #: [id number] END OF REPORT [facility] 2021-02-27 20:27:00 [facility] ([facility]) Hospitalist History Physical REPORT#:[id number] REPORT STATUS: Signed DATE:02/27/21 TIME:2026 PATIENT: BRYAN PARADA UNIT #: [id number] [address] : [birth year] AGE: 55 SEX: M ATTEND: Stephan Juan MD ADM AUTHOR: Eliazar Napier NP * ALL edits or amendments must be made on the electronic/computer document * History of Present Illness HPI Chief complaint: Chest pain PCP: PCP: No Primary or Family Physician HPI: This is a 55 y/o male with PMHx of T2DM, HTN, CHF w/ dual chamber AICD ( biotronik), and multiple strokes x4 per pt comes in with chest pain and numbness radiating to left arms with dizziness and shortness of breath that started last night. pt reported he waited till this moring to come in to be seen. Informant/historian: patient History Past Medical Surgical Hx Additional medical history: Nonobstructive CAD Hypertension CHF status post dual chamber AICD (biotronik) Diabetes mellitus type 2 Dyslipidemia Additional surgical history: Knee surgery Status post AICD/PPM Family History Additional family history: Both parents had hypertension Social History Alcohol use: Denies EtOH use Drug use: Denies recreational drugs Smoking status: Smoking status for patients 13 years old or older: Never Smoker Other social history: Lives alone Medication/Allergy-Vaccine Hx Allergies: Coded Allergies: No Known Allergies (11/30/20) Review of Systems Cardiovascular: Reports: chest pain. Neuro: Reports: numbness (LEFT ARM). All systems rev neg: except as noted Physical Exam VS/I O: Vital Signs Date Temp Pulse Resp B/P B/P Mean Pulse Ox FiO2 02/27 97.9 79-88 18 165-179/90-123 115-141 97-98 Last Documented: Result Date Time Pulse Ox 98 02/27 1406 B/P 165/90 02/27 1406 B/P Mean 115 02/27 1406 O2 Delivery Room air 02/27 1406 Pulse 79 02/27 1406 Resp 18 02/27 1406 Temp 97.9 02/27 1218 Patient Weight and BMI Weight (kg): 145.455 BMI: 41.2 General appearance: alert, awake, oriented, conversational, mental status normal Head/Eyes: atraumatic, EOMI, normocephalic ENT: moist mucosal membranes, normal nose Neck: full range of motion, non-tender, supple/no meningismus Cardiovascular: normal heart sounds, regular rate rhythm Respiratory: aerating well, clear to auscultation, symmetric expansion, no distress Abdomen: non-tender, normal bowel sounds, soft, no distention Abdomen quadrants: LLQ normal bowel sounds, LUQ normal bowel sounds, RLQ normal bowel sounds, RUQ normal bowel sounds Extremities: moves all Musculoskeletal: normal inspection, straight leg raise neg 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, oriented X 3, normal speech [place] Coma Score: Copyright Sir Greg Carver Copyright Sir Greg Carver Eye opening: (4) Spontaneous Verbal response: (5) Oriented Best motor response: (6) Obeys commands GCS Score: 15 Skin: dry Psychiatry: normal affect, normal judgment/insight, normal mood Results Findings/Data: Laboratory Tests: 02/27 02/27 1342 1252 Chemistry Sodium (134 - 147 mmol/L) 140 Potassium (3.4 - 5.0 mmol/L) 4.2 Chloride (100 - 108 mmol/L) 108 Carbon Dioxide (21 - 32 mmol/L) 26 Anion Gap (4.0 - 15.0 GAP calc) 6.0 BUN (7 - 18 MG/DL) 27 H Creatinine (0.8 - 1.3 MG/DL) 1.7 H Glomerular Filtr Rate (>60 estGFR) 54 L Glucose (70 - 110 MG/DL) 107 Calcium (8.5 - 10.1 MG/DL) 8.9 Total Creatine Kinase (26 - 192 Unit/L) 318 H Troponin I (0.000 - 0.045 NG/ML) < 0.015 NT-Pro-B Natriuret Pep (0 - 100 PG/ML) 1727 H Coagulation D-Dimer (215 - 500 ng/mLFEU) 939 *H Hematology WBC (3.5 - 11.0 K/mm3) 4.9 RBC (4.70 - 6.10 M/mm3) 6.09 Hgb (12.3 - 15.9 G/DL) 15.4 Hct (35.8 - 46.7 %) 48.9 H MCV (86.3 - 98.9 Fl) 80.3 L MCH (28.9 - 34.4 pg) 25.3 L MCHC (32.1 - 34.5 G/DL) 31.5 L RDW (11.5 - 14.5 SD) 15.9 H Plt Count (150 - 450 K/mm3) 226 MPV (7.0 - 9.6 fL) 11.20 H Serology SARS-CoV-2 Ag (Rapid) (Negative) NEGATIVE Laboratory Tests 02/27/21 1252: [Embedded Image Not Available] Radiology data: Recent Impressions: RADIOLOGY - XR CHEST 1 V 02/27 1315 Report Impression - Status: SIGNED Entered: 02/27/2021 1338 IMPRESSION: Less congestive appearance of the chest with no acute findings. Impression By: Zena Marsh M.D. CAT SCAN - CTA CHEST FOR PE 02/27 1750 Report Impression - Status: SIGNED Entered: 02/27/2021 6798 IMPRESSION: 1. No evidence for pulmonary embolism, aneurysm or dissection. 2. Cardiomegaly with left ventricular configuration. Pacemaker in place with no cardiac decompensation. 3. Otherwise no acute findings in the chest. Impression By: [facility] Ye Marsh M.D. Results: labs reviewed Diagnosis, Assessment Plan Problem List/A P: 1. Chest pain at rest Consult Cardiology telemetery serial trop, initial trop is negative pepcid as GI prophylaxis disposition: home when stable I have spend over 55 minutes in review of chart, labs, diagnostics, PE, discussion of POC with pt, enteing orders, and documentation. 2. Acute on chronic systolic (congestive) heart failure lasix IV January 03, 2021 Echo EF<20% BNP is elevated monitor lytes closely telemetry 3. Hypertension hydralazine IV prn b/p control with parameters 4. Diabetes mellitus insulin sliding scale with glucose check ac/hs. 5. Dyslipidemia supportive restart home meds Consultants: cardiology Plan discussed with: patient, nurse Resuscitation discussion: Discussed with: patient Code status: full code Quality: [facility] Crit Care Current Medications Current medication review: I attest that the foregoing medication list in the medical record is true, accurate, and complete to the best of my knowledge. Unable to obtain: Unable to obtain an accurate home medication list at this time. The patient is in an urgent or emergent medical situation where time is of the essence. To delay treatment would jeopardize the patient's health status on the day of the encounter. VTE Prophylaxis VTE prophylaxis initiated: yes BMI Screening > 25 or < 18.5 Patient's BMI: Current BMI: 41.2 BMI status/follow-up: abnl BMI, pt to F/U w/PCP HTN Screening/Follow-up Last documented vitals: Last Documented: Result Date Time Pulse Ox 98 02/27 1406 B/P 165/90 02/27 1406 B/P Mean 115 02/27 1406 O2 Delivery Room air 02/27 1406 Pulse 79 02/27 1406 Resp 18 02/27 1406 Temp 97.9 02/27 1218 B/P assess/follow-up: pre-existing hx of HTN Blood pressure ranges/guide: Screening for Hypertension and follow up measure #317 Blood pressure parameters Normal B/P SBP </= 119 DBP </= 79 Pre-hypertensive SBP 120-139 DBP 80-89 Hypertensive SBP >/= 140 DBP >/= 90 at 2105 at 1659 RPT #: [id number] END OF REPORT [facility] 2021-02-27 14:36:00 [facility]) EMERGENCY PROVIDER REPORT REPORT#:[id number] REPORT STATUS: Signed DATE:02/27/21 TIME:1436 PATIENT: BRYAN PARADA UNIT #: [id number] [address] AGE: 55 SEX: M PCP PHYS: No Primary or Family Physician SERVICE AUTHOR: Isac Rouse DO * ALL edits or amendments must be made on the electronic/computer document * HPI-Chest Pain 40 and Over Free Text HPI Notes Free Text HPI Notes Chief complaint: Chest pain. HPI 55-year-old male with past medical history of diabetes hypertension CVA presents with c/o chest pain with associated dizziness, shortness of breath, and insomnia. Reports mild cough, denies fever fatigue, diarrhea, abdominal pain, headache, sore throat or URI symptoms since last night. ROS Denies fever, sore throat, blurry vision, abdominal pain, vomiting, diarrhea, flank pain, dysuria, hematuria, neck or back pain, headache or dizziness, bruising or bleeding, weight gain or weight loss, depression, anxiety. PMH:DM2, HTN, CVA PSH: none Social Hx: denies General Initial Greet Date/Time 02/27/21 1220 Presentation Chief Complaint Chest pain Hx Obtained From Patient Sudden in Onset? No )( Migration/Movement None Risk-Chest Pain 40 and Over Risk Stratification )( Coronary Artery Disease Risk factors reviewed )( Thoracic Aortic Dissection Risk factors reviewed )( Pulmonary Embolism Risk factors reviewed )( AMI-Aspirin Aspirin Last 24 Hrs None )( HEART for MACE )( HEART for MACE Response Value History High index of suspicion 2 ECG Interpretation Nonspec repol disturb 1 Age Age 45 - 65 1 Risk Factors for CAD 1-2 CAD risk factors 1 Troponin < or = to NL troponin 0 Total 5 HEART Score for MACE 4-7 (mod risk 12%-16.6%) Review of Systems ROS Statements All systems rev neg except as marked. Past Medical History - Adult Stated Complaint LEFT ARM NUMBNESS AND CHEST PAIN Allergies Coded Allergies: No Known Allergies (11/30/20) Home Medications Active Scripts ATORVASTATIN (LIPITOR) 80 MG PO 1700 ATORVASTATIN (LIPITOR) 80 MG PO 1700 #30 TAB Prov: 01/07/21 ASPIRIN 81 MG PO DAILY ASPIRIN 81 MG PO DAILY #30 TAB Prov: 01/07/21 FUROSEMIDE (LASIX) 20 MG PO BID FUROSEMIDE (LASIX) 20 MG PO BID #60 TABS Prov: 01/07/21 LISINOPRIL (ZESTRIL) 5 MG PO DAILY LISINOPRIL (ZESTRIL) 5 MG PO DAILY #30 TABS Prov: 02/06/21 CLOPIDOGREL (PLAVIX) 75 MG PO DAILY 14 Days #14 TAB Prov: 12/05/20 Reported Medications glipiZIDE (GLUCOTROL) 5 MG PO BID SPIRONOLACTONE (ALDACTONE) 25 MG PO DAILY amLODIPine (NORVASC) 10 MG PO DAILY CARVEDILOL (COREG) 25 MG PO BID MEALS POTASSIUM BICARBONATE/CIT AC (EFFER-K 20 MEQ TABLET EFF) 20 MEQ PO DAILY cloNIDine (CATAPRES) 0.2 MG PO Q8H NITROGLYCERIN (NITROSTAT) 0.4 MG SL Q5M PRN PRN CHEST PAIN Past Medical History: Reports: Congestive heart failure, Coronary artery disease, Diabetes mellitus, Hypertension, Dyslipidemia, Ischemic stroke. Denies: Alcoholism/subst abuse. Additional Medical History Nonobstructive CAD Hypertension CHF status post dual chamber AICD (biotronik) Diabetes mellitus type 2 Dyslipidemia Additional Surgical History Knee surgery Status post AICD/PPM Additional Family History Both parents had hypertension Alcohol Use Denies EtOH use Drug Use Denies recreational drugs Smoking status: Smoking status for patients 13 years old or older: Never Smoker Other Social History Lives alone Occupation unemployed Physical Exam Vital Signs Vital Signs First Documented: Result Date Time Pulse Ox 97 02/27 1218 B/P 179/123 02/27 1218 B/P Mean 141 02/27 1218 O2 Delivery Room air 02/27 1218 Temp 36.6 02/27 1218 Pulse 88 02/27 1218 Resp 18 02/27 1218 Last Documented: Result Date Time Pulse Ox 100 02/27 1800 B/P 167/89 02/27 1800 B/P Mean 115 02/27 1800 O2 Delivery Room air 02/27 1800 Temp 36.9 02/27 1800 Pulse 84 02/27 1800 Resp 17 02/27 1800 Review of Vital Signs Reviewed Free Text PE Notes Free Text PE Notes General/Const - Awake, alert, no acute distress, well nourished. MS Head - Atraumatic, normocephalic. Eyes - No redness or swelling. EOMI. No vision deficits. Ears/Nose/Throat - Airway patent, moist mucous membranes. MS Neck - Supple, Full ROM, no tenderness, no JVD, no adenopathy. Resp/Chest - Breath sounds NL and equal bilat. No respiratory distress. Cardiovascular - Heart rate NL, Regular rhythm, Heart sounds NL, Peripheral circulation NL. Abdomen - Abdomen is soft, nontender, nondistended. No guarding or rebound. Active bowel sounds. Extremities - No cyanosis, clubbing, or edema. Skin - Skin Color NL, No rash, Warm, Dry, Intact. Neurologic - Neurologic Oriented X3, Speech NL, No motor deficits, No sensory deficits. CN II-XII NL. Reflexes NL. No ataxia. Interpretation Diagnostics Lab Results Interpretation Results Laboratory Tests 02/27/21 1252: [Embedded Image Not Available] Laboratory Tests: 02/27 1342 1252 Chemistry Sodium (134 - 147 mmol/L) 140 Potassium (3.4 - 5.0 mmol/L) 4.2 Chloride (100 - 108 mmol/L) 108 Carbon Dioxide (21 - 32 mmol/L) 26 Anion Gap (4.0 - 15.0 GAP calc) 6.0 BUN (7 - 18 MG/DL) 27 H Creatinine (0.8 - 1.3 MG/DL) 1.7 H Glomerular Filtr Rate (>60 estGFR) 54 L Glucose (70 - 110 MG/DL) 107 Calcium (8.5 - 10.1 MG/DL) 8.9 Total Creatine Kinase (26 - 192 Unit/L) 318 H Troponin I (0.000 - 0.045 NG/ML) 0.022 < 0.015 NT-Pro-B Natriuret Pep (0 - 100 PG/ML) 1727 H Coagulation D-Dimer (215 - 500 ng/mLFEU) 939 *H Hematology WBC (3.5 - 11.0 K/mm3) 4.9 RBC (4.70 - 6.10 M/mm3) 6.09 Hgb (12.3 - 15.9 G/DL) 15.4 Hct (35.8 - 46.7 %) 48.9 H MCV (86.3 - 98.9 Fl) 80.3 L MCH (28.9 - 34.4 pg) 25.3 L MCHC (32.1 - 34.5 G/DL) 31.5 L RDW (11.5 - 14.5 SD) 15.9 H Plt Count (150 - 450 K/mm3) 226 MPV (7.0 - 9.6 fL) 11.20 H Serology SARS-CoV-2 Ag (Rapid) (Negative) NEGATIVE Recent Impressions: RADIOLOGY - XR CHEST 1 V 02/27 1315 Report Impression - Status: SIGNED Entered: 02/27/2021 1338 IMPRESSION: Less congestive appearance of the chest with no acute findings. Impression By: Zena Marsh M.D. CAT SCAN - CTA CHEST FOR PE 02/27 1750 Report Impression - Status: SIGNED Entered: 02/27/2021 1838 IMPRESSION: 1. No evidence for pulmonary embolism, aneurysm or dissection. 2. Cardiomegaly with left ventricular configuration. Pacemaker in place with no cardiac decompensation. 3. Otherwise no acute findings in the chest. Impression By: Zena Marsh M.D. Lab Imaging Statement Laboratory radiographic studies reviewed and considered in the medical decision-making. ECG #1 Interpretation Text/Dict Note time 1225 interpreted by ia atrial-ventricular paced rhythm, rate 89, no sgarbossa criteria for STEMI. Re-Evaluation MDM Free Text MDM Notes Free Text MDM Notes CODE STATUS while in ER was full code. Goals of care were discussed in the ED with patient and/or family and the hospitalist was updated on admission of CODE STATUS in the ER. Re-Evaluation/Progress #1 Text/Dict Note Patient was reassessed and is feeling better. Discussed lab results and diagnosis with pt and family. Troponin is negative, EKG is neg for STEMI or ischemia. CXR is normal. Heart score of 5. Advised pt to admit for chest pain workup and cardiology evaluation. Pt agrees with plan. All questions were answered. Patient will need to be transferred due to bed capacity at this facility. Time of Re-Eval 1918 Re-Eval Status Improved ED Course Medication(s) Ordered Medication(s) Ordered: Central Nervous System Agents Sig/Mira Start time Last Medication Dose Route Stop Time Status Admin Morphine Sulfate 4 MG X1ED STA 02/27 1421 DC 02/27 IV 02/27 1422 1429 Aspirin 324 MG X1ED STA 02/27 1220 CAN PO 02/27 1221 Morphine Sulfate 4 MG X1ED STA 02/27 1220 DC 02/27 IV 02/27 1221 1301 Diagnostic Agents Sig/Mira Start time Last Medication Dose Route Stop Time Status Admin Iopamidol 0 .STK-MED ONE 02/27 1737 DC 02/27 .ROUTE 181 Electrolytic, Caloric, And Winston Sig/Mira Start time Last Medication Dose Route Stop Time Status Admin Furosemide 40 MG X1ED STA 02/27 1931 DC 02/27 IV 02/27 1932007 Sodium Chloride 100 ML .STK-MED ONE 02/27 1737 DC 02/27 IV 1818 Patient Discharge Departure Vital Signs/Condition Vital Signs First Documented: Result Date Time Pulse Ox 97 02/27 1218 B/P 179/123 02/27 1218 B/P Mean 141 02/27 1218 O2 Delivery Room air 02/27 1218 Temp 36.6 02/27 1218 Pulse 88 02/27 1218 Resp 18 02/27 1218 Last Documented: Result Date Time Pulse Ox 100 02/27 1800 B/P 167/89 02/27 1800 B/P Mean 115 02/27 1800 O2 Delivery Room air 02/27 1800 Temp 36.9 02/27 1800 Pulse 84 02/27 1800 Resp 17 02/27 1800 All vital signs available at the time of this entry have been reviewed. Condition Stable Clinical Impression Clinical Impression Primary Impression: Chest pain at rest Disposition Decision Admit Admit Physician Name Stephan Juan MD Admit Physician Hospitalist Request Time 2012 Request Date 02/27/21 )( Admission Accepts Yes )( Accepted Time 2012 )( Accepted Date 02/27/21 Call Information will see patient Transfer )( Request Time 1909 )( Request Date 02/27/21 Discharge/Care Plan Admit Note I have spoken with the patient and/or caregivers. I have explained the patient's condition, diagnoses and treatment plan based on the information available to me at this time. I have answered the patient's and/or caregiver's questions and addressed any concerns. The patient and/or caregivers have as good an understanding of the patient's diagnosis, condition and treatment plan as can be expected at this point. The patient has been stabilized within the capability of the emergency department. The patient will be transported for further care and management or will be moved to an observation or inpatient service. I have communicated with the staff or medical practitioner taking over this patient's care. at 2320 RPT #: [id number] END OF REPORT [facility] 2021-02-27 12:25:00 [id number] [facility] [address] [place] [address] PATIENT NAME: BRYAN PARADA ADMIT DATE: 02/28/21 ACCOUNT NO: [id number] ROOM NO: [place] [address] AGE: 55 REPORT TYPE: eELECTROCARDIOGRAM SEX: M ADMITTING PHYSICIAN: Stephan Juan MD ATTENDING PHYSICIAN: Stephan Juan MD Order: [id number] Test Reason : CP Test Date/Time Stamp: ThuFeb 27 2021 12:25:42 Blood Pressure : / mmHG Vent. Rate : 089 BPM Atrial Rate : 089 BPM P-R Int : 156 ms QRS Dur : 174 ms QT Int : 458 ms P-R-T Axes : -16 111 -22 degrees QTc Int : 557 ms Artifact is present Confirmed by MD Emilia, Anaya ([id number]) on 03/28/2021 3:29:47 PM Referred By: Isac Rouse Confirmed by:Anaya Nieto MD at 1530 PATIENT NAME: BRYAN PARADA [facility] 2021-02-09 16:12:00 [facility] ([facility]) Discharge Summary REPORT#:[id number] REPORT STATUS: Signed DATE:02/09/21 TIME: 1612 PATIENT: BRYAN PARADA UNIT #: [id number] ROOM/BED: [facility]-1 : 66 AGE: 55 SEX: M ATTEND: Precious Bae MD ADM AUTHOR: Jeremy Adams DO * ALL edits or amendments must be made on the electronic/computer document * General Information Problem List/A P: 1. CHF (congestive heart failure) 2. Chest pain 3. Dyslipidemia 4. Hypertension 5. Diabetes mellitus Date of admission: Observation Start Date: Date of admission: 02/04/21 Discharge date: 02/06/21 Hospital course: Chest pain: Inpatient with history of severe systolic and diastolic CHF, hypertension, diabetes mellitus and dyslipidemia. Recent recath on 12/04 was suggestive of nonobstructive CAD. EKG suggestive of a paced rhythm, troponin mildly elevated Follow-up echocardiogram Cardiology has been consulted. U tox suggestive of cocaine, checked with patient twice and he denies any cocaine abuse or any prior history of substance abuse. D-dimer elevated, CTA was unremarkable for PE. Continue aspirin, Plavix, Coreg (discussed with patient regarding ADR if any history of cocaine abuse, he denies), lisinopril, and Lipitor. Severe systolic and diastolic CHF: No signs or symptoms to suggest acute exacerbation. Continue Lasix, Aldactone and Coreg, added lisinopril. Echo on 01/03 was suggestive of EF of less than 20%, dilated cardiomyopathy, grade 2 diastolic dysfunction and biatrial dilatation, follow with repeat echo. Fluid as well salt restriction discussed in detail Diabetes mellitus type 2: Hold p.o. antidiabetic's. Started patient on sliding scale insulin. Dyslipidemia: Continue Lipitor. Hypertension: Continue Coreg, Norvasc, clonidine and lisinopril. GIUSEPPE versus CKD: Mildly elevated creatinine, suspect at baseline, will need ongoing outpatient follow-up with PCP and nephrology DVT prophylaxis Lovenox subcu. Full code. Plan discussed with patient, answered all the questions. Disposition: The patient has been cleared by cardiology for discharge and outpatient follow-up Consultants: cardiology Med Rec Med Rec Discharge meds: Continue taking these medications: glipiZIDE (GLUCOTROL) 5 MG TAB 5 MILLIGRAM ORAL TWICE DAILY. SPIRONOLACTONE (ALDACTONE) 25 MG TAB 25 MILLIGRAM ORAL DAILY. amLODIPine (NORVASC) 10 MG TAB 10 MILLIGRAM ORAL DAILY. CARVEDILOL (COREG) 25 MG TAB 25 MILLIGRAM ORAL TWICE DAILY WITH MEALS. CLOPIDOGREL (PLAVIX) 75 MG TAB 75 MILLIGRAM ORAL DAILY. Days = 14 Qty = 14 POTASSIUM BICARBONATE/CIT AC (EFFER-K 20 MEQ TABLET EFF) 20 MEQ TABLET.EFF 20 MILLIEQUIVALENT ORAL DAILY. cloNIDine (CATAPRES) 0.2 MG TAB 0.2 MILLIGRAM ORAL EVERY 8 HOURS. NITROGLYCERIN (NITROSTAT) 0.4 MG TAB.SL 0.4 MILLIGRAM SUBLINGUAL EVERY 5 MINUTES NEEDED. as needed for CHEST PAIN ATORVASTATIN (LIPITOR) 40 MG TAB 80 MILLIGRAM ORAL 1700. Qty = 30 ASPIRIN (ASPIRIN) 81 MG TAB.CHEW 81 MILLIGRAM ORAL DAILY. Qty = 30 FUROSEMIDE (LASIX) 20 MG TAB 20 MILLIGRAM ORAL TWICE DAILY. Qty = 60 Start taking the following new medications: LISINOPRIL (ZESTRIL) 5 MG TAB 5 MILLIGRAM ORAL DAILY. Qty = 30 No Refills Discharge Instructions PCP )( Follow up labs, proc, tx: Limit salt intake and total fluid intake to 1200mL a day. Avoid cocaine use. Take all medications as prescribed. Keep a log of your blood pressure and heart rate at least twice a day for your PCP. Follow up with cardiology as directed, continue to monitor your kidney function with PCP as soon as possible )( Discharge to: Home/Self Care Discharge Instructions Additional Discharge Routines: PCP Follow-Up, Seed Corn Production Manager Follow-Up, Fluid Restrictions, F/U Labs/Procedures )( Diet: Low Sodium )( Fluid restriction(mls/day): 1200 )( Weight monitoring: Daily )( Activity: As Tolerated Follow-up Appointments PCP follow up: PCP: No Primary or Family Physician PCP follow up timeframe: In 3 days Special instructions: CALL TO SCHEDULE Attending Physician: Attending Physician: Precious Bae MD Consulting provider 1: Provider 1: Mervat Conroy MD Specialty: CardiologyInterventional Consult follow up timeframe: In 1-2 weeks Special instructions: CALL TO SCHEDULE Quality: Gen Med Crit Care Current Medications Current medication review: I attest that the foregoing medication list in the medical record is true, accurate, and complete to the best of my knowledge. VTE Prophylaxis VTE prophylaxis initiated: yes (Lovenox) at 1613 RPT #:[id number] END OF REPORT [facility] 2021-02-06 14:43:00 [id number] [place] [address] PATIENT NAME: BRYAN PARADA ADMIT DATE: 02/04/21 ACCOUNT NO: [id number] ROOM NO: [id number] AGE: 55 REPORT TYPE: eECHOCARDIOGRAM REPORT SEX: M ADMITTING PHYSICIAN:Precious Bae MD ATTENDING PHYSICIAN:Precious Bae MD *[place] [address] Transthoracic Echocardiogram Patient: Bryan Parada Study Date: 02/05/2021 BP: 139 / 85 Location: [facility] URN: [id number] : 1965 Age: 55 Height: 73.6 in / 187 cm Gender: M Weight: 220 lb / 100 kg BMI/BSA: 28.6 kg/m 2 / 2.3 m 2 *Ordering Physician: * Precious Bae *Interpreting Physician: * Mervat Conroy MD *Internal Affairs Commander: * Opal Young ------ Indications: Chest Pain, cardiomyopathy. ------ Study data: Transthoracic echocardiogram. Procedure: Transthoracic echocardiography was performed. Image quality was fair. Complete 2D, complete spectral Doppler, and color Doppler. Location: Emergency department. Patient status: Inpatient. Patient room number: 11. Study status: Routine. Rhythm: Normal sinus rhythm. ------ Findings Left ventricle: The cavity size is severely dilated. Wall thickness is moderately increased. Systolic function is severely reduced. The estimated ejection fraction is <20%. Severe diffuse hypokinesis. Regional wall motion abnormalities: Severe hypokinesis. Doppler parameters are consistent with abnormal left ventricular relaxation PATIENT NAME: BRYAN PARADA (grade 1 diastolic dysfunction). Right ventricle: The cavity size is dilated. Systolic function is normal. Left atrium: The atrium is dilated. Right atrium: The atrium is dilated. Pacer wire noted in right atrium. Atrial septum: Echo contrast study shows no atrial level shunt. Aorta: Aortic root: The aortic root is normal in size. Aortic valve: The valve is structurally normal. The valve is trileaflet. There is no evidence of stenosis. There is no regurgitation. Mitral valve: The valve is structurally normal. There is mild to moderate regurgitation. Tricuspid valve: The valve is structurally normal. There is mild-moderate regurgitation. Pulmonic valve: The valve is structurally normal. There is mild regurgitation. Pericardium: There is no pericardial effusion. Pulmonary arteries: Main pulmonary artery: The artery is increased in size. Systemic veins: Inferior vena cava: The vessel is normal in size. The respirophasic diameter changes are in the normal range (= 50%). ------ Measurements Left ventricle Value 01/03/2021 Ref YANETH, LAX 6.8 cm 6.5 4.2 - 5.8 ESD, LAX 5.0 cm 5.6 2.5 - 4.0 ESD/bsa, 2.2 cm/m 2 2.0 1.3 - 2.1 LAX FS, LAX 26 % 14 25 - 43 ESD/bsa 4.3 cm/m 2 --------- major ax, A4C YANETH/bsa 4.3 cm/m 2 --------- minor ax, A4C YANETH major 11.3 cm --------- ax, A2C ESD major 9.8 cm --------- ax, A2C YANETH/bsa 4.9 cm/m 2 --------- major ax, A2C ESD/bsa 4.2 cm/m 2 --------- major ax, A2C PW, ED 1.2 cm 1.6 0.6 - 1.0 IVS/PW, ED 0.97 1.03 --------- EF 50 % 28 52 - 72 E', lat -3.6 cm/sec >=10.0 [place], TDI E/e', lat -17 --------- PATIENT NAME: BRYAN PARADA shawnee, TDI E', med -3.4 cm/sec >=7.0 shawnee, TDI E/e', med -18 --------- shawnee, TDI E', avg, 3.5 cm/sec --------- TDI E/e', avg, 18 31 <=14 TDI LVOT Value 01/03/2021 Ref Diam, S 2.01 cm 2.42 --------- Area 3.2 cm 2 4.6 --------- Peak sommer, S -0.76 m/sec 0.85 --------- Peak grad, 2 mm Hg 3 --------- S Ventricular septum Value 01/03/2021 Ref IVS, ED 1.2 cm 1.6 0.6 - 1.0 Right ventricle Value 01/03/2021 Ref YANETH, LAX 3.7 cm 4.4 --------- Pressure, S 31 mm Hg 42 --------- RVOT Value 01/03/2021 Ref Peak v, S 0.46 m/sec --------- Peak grad, 1 mm Hg --------- S Left atrium Value 01/03/2021 Ref Vol/bsa, 39 ml/m 2 38 12 - 37 ES, 1-p A4C Vol, ES, 105 ml --------- 2-p Vol/bsa, 46 ml/m 2 16 - 34 ES, 2-p Vol/bsa, 42 ml/m 2 42 16 - 34 ES, A/L AP dim, ES 3.5 cm 4.0 3.0 - 4.0 MM LA/Ao root 1.1 1.16 --------- ratio, MM Right atrium Value 01/03/2021 Ref Area, ES 21 cm 2 28 10 - 18 Aortic valve Value 01/03/2021 Ref Leaflet 2.14 cm 2.26 --------- sep, MM Peak v, S 0.9 m/sec 1.02 --------- Peak grad, 3.3 mm Hg 4.2 --------- S ANITA, Vmax 2.66 cm 2 3.84 --------- PATIENT NAME: BRYAN PARADA Mitral valve Value 01/03/2021 Ref Peak E -0.03 m/sec 1.11 --------- Peak A 0.95 m/sec 1.03 --------- Mean v, D 0.81 m/sec --------- VTI leaflet 33.8 cm --------- coapt Decel time 236 ms 233 --------- PHT 82 ms 64 --------- Mean grad, 2.9 mm Hg --------- D Peak grad, 5.4 mm Hg 4.9 --------- D Peak E/A 0.65 1.08 --------- ratio MVA, PHT 2.7 cm 2 3.5 --------- Pulmonic valve Value 01/03/2021 Ref RI peak v 1.63 m/sec 1.39 --------- RI peak 11 mm Hg 8 --------- grad Tricuspid valve Value 01/03/2021 Ref TR peak v -2.41 m/sec 3.04 <=2.8 Peak RV-RA 23 mm Hg 37 --------- grad, S Aortic root Value 01/03/2021 Ref Root diam 3.3 cm <4.4 Root diam, 3.17 cm 3.45 --------- ED MM Ascending aorta Value 01/03/2021 Ref AAo AP 3.3 cm --------- diam, S AAo AP 1.4 cm/m 2 --------- diam/bsa, S Pulmonary artery Value 01/03/2021 Ref Pressure, S 27.1 mm Hg 37.7 --------- Systemic veins Value 01/03/2021 Ref Estimated 8 mm Hg 5 --------- CVP ------ Conclusions Summary: 1. Left ventricle: The cavity size is severely dilated. Wall thickness is moderately increased. Systolic function is severely reduced. The estimated ejection fraction is <20%. Severe diffuse hypokinesis. Severe hypokinesis. Doppler parameters are consistent with abnormal left ventricular relaxation (grade 1 diastolic dysfunction). PATIENT NAME: BRYAN PARADA 2. Right ventricle: The cavity size is dilated. 3. Left atrium: The atrium is dilated. 4. Right atrium: The atrium is dilated. 5. Atrial septum: Echo contrast study shows no atrial level shunt. 6. Mitral valve: There is mild to moderate regurgitation. 7. Tricuspid valve: There is mild-moderate regurgitation. Prepared and electronically signed by Mervat Conroy MD 02/06/2021 14:43 at 1444 PATIENT NAME: BRYAN PARADA [facility] 2021[facility]02[facility]06 13:56:00 [facility] REPORT#:[id number] REPORT STATUS: Signed DATE:02/06/21 TIME: 1356 PATIENT: BRYAN PARADA UNIT #: [id number] ROOM[facility]BED: [facility] [place]-1 : 67 AGE: 55 SEX: M ATTEND: Precious Bae MD ADM AUTHOR: Jeremy Adams DO * ALL edits or amendments must be made on the electronic/computer document * Subjective Comments: Patient seen and examined, denies any new complaints. No new events per RN. Patient has been cleared by cardiology and wants to go home. Objective General VS/I O: Vital Signs: Date Time Temp Pulse Resp B/P B/P Pulse O2 O2 Flow FiO2 Mean Ox Delivery Rate 02/06 1045 97.5 65 17 103/70 81.0 97 Room air 02/06 0723 73 18 107/73 84.5 96 Room air 02/06 0404 97.7 69 14 127/90 102.5 99 Room air 02/05 2257 97.7 68 18 120/86 97.5 96 Room air 02/05 2100 74 18 113/82 92 97 02/05 1915 97.3 73 17 95/53 67.3 98 Room air 02/05 1808 98.1 76 20 129/85 99.3 98 Room air 24 hour I O ending at 0700: 02/06 0700 02/05 1900 Intake Total Output Total 650 Balance -650 Output, Urine 650 PATIENT WEIGHT: Weight (lb): Weight (oz): Weight (kg): 90.900 Medications: Active Meds + DC'd Last 24 Hrs Atorvastatin Calcium 80 MG BEDTIME PO Insulin Human Lispro 0 AC HS SUBQ Dextrose/Water 25 ML ASDIR PRN IV (CKD) Dextrose/Water 50 ML ASDIR PRN IV (CKD) Glucagon 1 MG ASDIR PRN IM Amlodipine Besylate 10 MG DAILY PO Aspirin 81 MG DAILY PO Clopidogrel Bisulfate 75 MG DAILY PO Furosemide 20 MG BID@0900,1700 PO Lisinopril 5 MG DAILY PO Spironolactone 25 MG DAILY PO Carvedilol 25 MG BID MEALS PO Enoxaparin Sodium 40 MG Q24H SUBQ Acetaminophen 650 MG Q4H PRN PRN PO Al Hydrox/Mg Hydrox/Simethicone 30 ML Q4H PRN PRN PO Clonidine HCl 0.2 MG Q8H PO Hydralazine HCl 10 MG Q2H PRN PRN IV Lactulose 20 GM Q6H PRN PRN PO Morphine Sulfate 2 MG Q4H PRN PRN IV Nitroglycerin 0.4 MG Q5M PRN PRN SL Nitroglycerin 0.4 MG Q5M PRN PRN SL Ondansetron HCl 4 MG Q4H PRN PRN IV Physical Exam General appearance: alert, awake, oriented Head/Eyes: EOMI, normal conjunctiva/sclera ENT: moist mucosal membranes, normal pharynx Neck: non-tender, supple/no meningismus Cardiovascular: normal heart sounds, regular rate rhythm Respiratory: aerating well, symmetric expansion Abdomen: non-tender, normal bowel sounds, soft Extremities: moves all, no edema 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, oriented X 3, normal speech Skin: dry, intact Psychiatry: normal affect, normal judgment/insight Results Findings/Data: Laboratory Tests 02/06 02/06 02/06 02/06 02/05 1043 0724 0420 0420 1913 Chemistry Sodium (134 - 147 mEq/L) 142 Potassium (3.4 - 5.0 mEq/L) 4.4 Chloride (100 - 108 mEq/L) 107 Carbon Dioxide (21 - 33 mEq/l) 30 Anion Gap (0 - 20) 9 BUN (7 - 18 mg/dL) 21 H Creatinine (0.6 - 1.3 mg/dL) 1.4 H Glomerular Filtr Rate (90 - 95) 63.9 L Glucose (70 - 110 mg/dL) 92 POC Glucose (70 - 110 MG/DL) 110 101 129 H Hemoglobin A1c (4.8 - 6.0 %A1C) 5.9 Calcium (8.0 - 10.5 mg/dL) 9.0 TSH (0.42 - 5.47 IU/mL) 0.50 Laboratory Tests 02/06 0420 Hematology WBC (4.5 - 11.0 x10 3/uL) 5.2 RBC (4.00 - 5.60 x10 6/uL) 5.51 Hgb (12.5 - 16.9 g/dL) 14.2 Hct (37.5 - 50.7 %) 46.1 MCV (81.0 - 99.0 fL) 83.7 MCH (27.0 - 33.0 pg) 25.8 L MCHC (33.0 - 37.0 g/dL) 30.8 L RDW (11.5 - 14.5 %) 16.4 H Plt Count (150 - 400 x10 3/uL) 219 MPV (7.0 - 9.0 fL) 11.5 H Neut % (Auto) (56.0 - 77.0 %) 44.2 L Lymph % (Auto) (14.0 - 32.0 %) 42.8 H [place] % (Auto) (4.8 - 9.0 %) 10.5 H Eos % (Auto) (0.3 - 3.7 %) 1.9 Baso % (Auto) (0.0 - 2.0 %) 0.4 Neut # (Auto) (2.0 - 7.6 x10 3/uL) 2.28 Lymph # (Auto) (1.0 - 3.8 x10 3/uL) 2.21 [place] # (Auto) (0.1 - 0.8 x10 3/uL) 0.54 Eos # (Auto) (0.0 - 0.2 x10 3/uL) 0.10 Baso # (Auto) (0.0 - 0.2 x10 3/uL) 0.02 Abs Immat Gran (auto) (0.00 - 0.03 x10 3/uL) 0.01 Add Manual Diff NO Immature Gran % (0.0 - 2.0 %) 0.2 Nucleated RBC % (0 - 0 %) 0.0 Nucleated RBCs # (Man) (0.0 - 0.1 x10 3/uL) 0.00 Diagnosis, Assessment Plan Problem List/A P: 1. CHF (congestive heart failure) 2. Chest pain 3. Dyslipidemia 4. Hypertension 5. Diabetes mellitus Consultants: cardiology Free Text DxA P Notes Free text DxA P notes: Chest pain: Inpatient with history of severe systolic and diastolic CHF, hypertension, diabetes mellitus and dyslipidemia. Recent recath on 12/04 was suggestive of nonobstructive CAD. EKG suggestive of a paced rhythm, troponin mildly elevated Follow-up echocardiogram Cardiology has been consulted. U tox suggestive of cocaine, checked with patient twice and he denies any cocaine abuse or any prior history of substance abuse. D-dimer elevated, CTA was unremarkable for PE. Continue aspirin, Plavix, Coreg (discussed with patient regarding ADR if any history of cocaine abuse, he denies), lisinopril, and Lipitor. Severe systolic and diastolic CHF: No signs or symptoms to suggest acute exacerbation. Continue Lasix, Aldactone and Coreg, added lisinopril. Echo on 01/03 was suggestive of EF of less than 20%, dilated cardiomyopathy, grade 2 diastolic dysfunction and biatrial dilatation, follow with repeat echo. Fluid as well salt restriction discussed in detail Diabetes mellitus type 2: Hold p.o. antidiabetic's. Started patient on sliding scale insulin. Dyslipidemia: Continue Lipitor. Hypertension: Continue Coreg, Norvasc, clonidine and lisinopril. GIUSEPPE versus CKD: Mildly elevated creatinine, suspect at baseline, will need ongoing outpatient follow-up with PCP and nephrology DVT prophylaxis Lovenox subcu. Full code. Plan discussed with patient, answered all the questions. Disposition: The patient has been cleared by cardiology for discharge and outpatient follow-up [facility] Current Medications Current medication review: I attest that the foregoing medication list in the medical record is true, accurate, and complete to the best of my knowledge. VTE Prophylaxis VTE prophylaxis initiated: yes (Lovenox) at 1402 RPT #:[id number] END OF REPORT [facility] 2021-02-06 10:48:00 [facility] ([facility]) Cardiology Progress Note REPORT#:[id number] REPORT STATUS: Signed DATE:02/06/21 TIME: 1048 PATIENT: BRYAN PARADA UNIT #: [id number] ROOM[facility]BED: [facility] [place]0-1 : 67 AGE: 55 SEX: M ATTEND: Precious Bae MD ADM AUTHOR: Jolene Heath NP * ALL edits or amendments must be made on the electronic/computer document * Subjective Chief Complaint: states he is feeling better SOB when laying down has improved reports short episode of chest/epigastric pain last night stable, no acute cardiac events noted Objective General VS/I O: Laboratory Tests 02/06/21 0420: [Embedded Image Not Available] 02/05/21 0403: [Embedded Image Not Available] Current Medications Sig/Mira Start time Last Medication Dose Route Stop Time Status Admin Atorvastatin Calcium 80 MG BEDTIME 02/05 2100 AC 02/05 PO 03/07 Insulin Human Lispro 0 AC HS 02/05 1630 AC SUBQ 03/07 1629 Dextrose/Water 25 ML ASDIR PRN 02/05 1345 CKD IV 03/07 1344 Dextrose/Water 50 ML ASDIR PRN 02/05 1345 CKD IV 03/07 1344 Glucagon 1 MG ASDIR PRN 02/05 1345 AC IM 03/07 1344 Amlodipine Besylate 10 MG DAILY 02/05 900 AC 02/06 PO 03/07 0859 0836 Aspirin 81 MG DAILY 02/05 900 AC 02/06 PO 03/07 859 0835 Clopidogrel Bisulfate 75 MG DAILY 02/05 900 AC 02/06 PO 03/07 859 0835 Furosemide 20 MG BID@0900,1700 02/05 0900 02/06 PO 03/07 0859 0836 Lisinopril 5 MG DAILY 02/05 900 AC 02/06 PO 03/07 08 0835 Spironolactone 25 MG DAILY 02/05 900 AC 02/06 PO 03/07 0859 0836 Carvedilol 25 MG BID MEALS 02/06 800 AC 02/06 PO 03/07 0759 0836 Enoxaparin Sodium 40 MG Q24H 02/04 2200 02/05 SUBQ 03/06 Acetaminophen 650 MG Q4H PRN PRN 02/04 2115 PO 03/06 2114 Al Hydrox/Mg Hydrox/ 30 ML Q4H PRN PRN 02/04 2115 Simethicone PO 03/06 2114 Clonidine HCl 0.2 MG Q8H 02/04 2115 02/06 PO 03/06 Hydralazine HCl 10 MG Q2H PRN PRN 02/04 2115 IV 03/06 2114 Lactulose 20 GM Q6H PRN PRN 02/04 2115 PO 03/06 2114 Morphine Sulfate 2 MG Q4H PRN PRN 02/04 2115 02/05 IV 02/09 2114 221 Nitroglycerin 0.4 MG Q5M PRN PRN 02/04 2115 02/05 SL 03/06 Nitroglycerin 0.4 MG Q5M PRN PRN 02/04 2115 SL 03/06 2114 Ondansetron HCl 4 MG Q4H PRN PRN 02/04 2115 02/04 IV 03/06 24 hour I O ending at 0700: 02/06 0700 02/05 1900 Intake Total Output Total 650 Balance -650 Output, Urine 650 Vital Signs: Date Time Temp Pulse Resp B/P B/P Pulse O2 O2 Flow FiO2 Mean Ox Delivery Rate 02/06 1045 36.4 65 17 103/70 81.0 97 Room air 02/06 0723 73 18 107/73 84.5 96 Room air 02/06 0404 36.5 69 14 127/90 102.5 99 Room air 02/05 2257 36.5 68 18 120/86 97.5 96 Room air 02/05 2100 74 18 113/82 92 97 02/05 1915 36.3 73 17 95/53 67.3 98 Room air 02/05 1808 36.7 76 20 129/85 99.3 98 Room air PATIENT WEIGHT: Weight (lb): Weight (oz): Weight (kg): 90.900 Physical Exam General appearance: alert, awake, oriented, no acute distress Head/Eyes: atraumatic, PERRL Neck: no JVD Cardiovascular: CV assessment: normal heart sounds, pedal pulses present, no murmur, paced rhythm Respiratory: decreased breath sounds, no distress Abdomen: soft, non-tender, normal bowel sounds, no distention Upper extremity: UE assessment: normal capillary refill, normal temperature, no edema Lower extremity: LE assessment: normal capillary refill, normal temperature, no edema, 2+ peripheral pulses Musculoskeletal: normal inspection Skin: dry, intact Psychiatry: normal affect Diagnosis, Assessment Plan Free Text DxA P Notes Free Text DxA P Notes: 1. Acute on chronic systolic HF with NICMP s/p dual chamber AICD LVEF <20% per last echo done in January 2021 echo pending daily weights, strict I O, fluid restriction 1.2 L, Low Na diet continue coreg, aldactone, lisinopril, po lasix strongly encouraged lifestyle changes 2. Chest pain with mildly elevated troponins due to cocaine abuse/CHF LHC done 12/30 showed no obstructive CAD urine drug screen positive for cocaine CTA chest negative for PE EKG noted, no acute changes V-paced educated about lifestyle changes continue asa, plavix, statin no further workup indicated at this time 3. HTN, uncontrolled bp well controlled continue norvasc, lisinopril, clonidine, coreg 4. Hyperlididemia LDL 168 continue lipitor 5. DM, uncontrolled HBGA1C 5.9 per IM 6. CVA (01/2021) s/p TPA 7. Substance Abuse strongly encourage lifestyle changes Ok to discharge from cardiac standpoint, FU in [address] Conroy or his tube roller at 1129 RPT #:[id number] END OF REPORT [facility] 2021-02-06 10:48:00 [facility] ([facility]) Cardiology Progress Note REPORT#:[id number] REPORT STATUS: Signed DATE:02/06/21 TIME: 1047 PATIENT: BRYAN PARADA UNIT #: [id number] ROOM/BED: [place] [id number] : 67 AGE: 55 SEX: M ATTEND: Precious Bae MD ADM AUTHOR: Jolene Heath [employer] DEVELOPER * ALL edits or amendments must be made on the electronic/computer document * Subjective Chief Complaint: states he is feeling better SOB when laying down has improved reports short episode of chest/epigastric pain last night stable, no acute cardiac events noted Objective General VS/I O: Laboratory Tests 02/06/21 0420: [Embedded Image Not Available] 02/05/21 0403: [Embedded Image Not Available] Current Medications Sig/Mira Start time Last Medication Dose Route Stop Time Status Admin Atorvastatin Calcium 80 MG BEDTIME 02/05 2100 AC 02/05 PO 03/07 Insulin Human Lispro 0 AC HS 02/05 1630 AC SUBQ 03/07 1629 Dextrose/Water 25 ML ASDIR PRN 02/05 1345 CKD IV 03/07 1344 Dextrose/Water 50 ML ASDIR PRN 02/05 1345 CKD IV 03/07 1344 Glucagon 1 MG ASDIR PRN 02/05 1345 AC IM 03/07 1344 Amlodipine Besylate 10 MG DAILY 02/05 900 AC 02/06 PO 03/07 0859 0836 Aspirin 81 MG DAILY 02/05 900 AC 02/06 PO 03/07 0859 0835 Clopidogrel Bisulfate 75 MG DAILY 02/05 900 AC 02/06 PO 03/07 0859 0835 Furosemide 20 MG BID@0900,1700 02/05 900 AC 02/06 PO 03/07 0859 0836 Lisinopril 5 MG DAILY 02/05 900 AC 02/06 PO 03/07 0859 0835 Spironolactone 25 MG DAILY 02/05 900 AC 02/06 PO 03/07 0859 0836 Carvedilol 25 MG BID MEALS 02/06 800 AC 02/06 PO 03/07 0759 0836 Enoxaparin Sodium 40 MG Q24H 02/04 2200 AC 02/05 SUBQ 03/06 2159 210 Acetaminophen 650 MG Q4H PRN PRN 02/04 2115 AC PO 03/06 2114 Al Hydrox/Mg Hydrox/ 30 ML Q4H PRN PRN 02/04 2115 AC Simethicone PO 03/06 2114 Clonidine HCl 0.2 MG Q8H 02/04 2115 AC 02/06 PO 03/06 Hydralazine HCl 10 MG Q2H PRN PRN 02/04 2115 AC IV 03/06 2114 Lactulose 20 GM Q6H PRN PRN 02/04 2115 AC PO 03/06 2114 Morphine Sulfate 2 MG Q4H PRN PRN 02/04 2115 AC 02/05 IV 02/09 Nitroglycerin 0.4 MG Q5M PRN PRN 02/04 2115 02/05 SL 03/06 Nitroglycerin 0.4 MG Q5M PRN PRN 02/04 2115 SL 03/06 2114 Ondansetron HCl 4 MG Q4H PRN PRN 02/04 2115 AC 02/04 IV 03/06 24 hour I O ending at 0700: 02/06 0700 02/05 1900 Intake Total Output Total 650 Balance -650 Output, Urine 650 Vital Signs: Date Time Temp Pulse Resp B/P B/P Pulse O2 O2 Flow FiO2 Mean Ox Delivery Rate 02/06 1045 36.4 65 17 103/70 81.0 97 Room air 02/06 0723 73 18 107/73 84.5 96 Room air 02/06 0404 36.5 69 14 127/90 102.5 99 Room air 02/05 2257 36.5 68 18 120/86 97.5 96 Room air 02/05 2100 74 18 113/82 92 97 / 1915 36.3 73 17 95/53 67.3 98 Room air / 1808 36.7 76 20 129/85 99.3 98 Room air PATIENT WEIGHT: Weight (lb): Weight (oz): Weight (kg): 90.900 Physical Exam General appearance: alert, awake, oriented, no acute distress Head/Eyes: atraumatic, PERRL Neck: no JVD Cardiovascular: CV assessment: normal heart sounds, pedal pulses present, no murmur, paced rhythm Respiratory: decreased breath sounds, no distress Abdomen: soft, non-tender, normal bowel sounds, no distention Upper extremity: UE assessment: normal capillary refill, normal temperature, no edema Lower extremity: LE assessment: normal capillary refill, normal temperature, no edema, 2+ peripheral pulses Musculoskeletal: normal inspection Skin: dry, intact Psychiatry: normal affect Diagnosis, Assessment Plan Free Text DxA P Notes Free Text DxA P Notes: 1. Acute on chronic systolic HF with NICMP s/p dual chamber AICD LVEF <20% per last echo done in January 2021 echo pending daily weights, strict I O, fluid restriction 1.2 L, Low Na diet continue coreg, aldactone, lisinopril, po lasix strongly encouraged lifestyle changes 2. Chest pain with mildly elevated troponins due to cocaine abuse/CHF LHC done 12/30 showed no obstructive CAD urine drug screen positive for cocaine CTA chest negative for PE EKG noted, no acute changes V-paced educated about lifestyle changes continue asa, plavix, statin no further workup indicated at this time 3. HTN, uncontrolled bp well controlled continue norvasc, lisinopril, clonidine, coreg 4. Hyperlididemia LDL 168 continue lipitor 5. DM, uncontrolled HBGA1C 5.9 per IM 6. CVA (01/2021) s/p TPA 7. Substance Abuse strongly encourage lifestyle changes Ok to discharge from cardiac standpoint, FU in [address] Conroy or his tube roller at 1129 at 1048 RPT #:[id number] END OF REPORT [facility] 2021-02-05 13:27:00 [facility] ([facility] Hospitalist Progress Note REPORT#:[id number] REPORT STATUS: Signed DATE:02/05/21 TIME: 1327 PATIENT: BRYAN PARADA UNIT #: [id number] RO[place]/BED: [place] : 67 AGE: 55 SEX: M ATTEND: Precious Bae MD ADM AUTHOR: Jeremy Adams DO * ALL edits or amendments must be made on the electronic/computer document * Subjective Comments: Patient seen and examined, reports of chest pain is improved. Denies any new complaints. Discussed case with RN. Seen by cardiology Objective General VS/I O: Vital Signs: Date Time Temp Pulse Resp B/P B/P Pulse O2 O2 Flow FiO2 Mean Ox Delivery Rate 02/05 618 70 22 139/85 103 98 02/05 0358 97.9 71 15 141/102 95 02/05 0201 73 15 126/79 94 94 Room air 02/04 2301 81 17 139/72 94 95 Room air 02/04 2149 80 20 146/89 108 99 Room air 02/04 2101 80 17 146/89 108 99 Room air 02/05 2008 98.1 83 22 150/89 109 100 Room air 24 hour I O ending at 0700: 02/05 0700 02/04 1900 Intake Total Output Total Balance Patient 90.9 kg Weight Weight Stated/Reported Measurement Method PATIENT WEIGHT: Weight (lb): Weight (oz): Weight (kg): 90.900 Medications: Active Meds + DC'd Last 24 Hrs Atorvastatin Calcium 80 MG BEDTIME PO Amlodipine Besylate 10 MG DAILY PO Aspirin 81 MG DAILY PO Clopidogrel Bisulfate 75 MG DAILY PO Furosemide 20 MG BID@0900,1700 PO Lisinopril 5 MG DAILY PO Spironolactone 25 MG DAILY PO Carvedilol 25 MG BID MEALS PO Enoxaparin Sodium 40 MG Q24H SUBQ Acetaminophen 650 MG Q4H PRN PRN PO Al Hydrox/Mg Hydrox/Simethicone 30 ML Q4H PRN PRN PO Clonidine HCl 0.2 MG Q8H PO Hydralazine HCl 10 MG Q2H PRN PRN IV Lactulose 20 GM Q6H PRN PRN PO Morphine Sulfate 2 MG Q4H PRN PRN IV Nitroglycerin 0.4 MG Q5M PRN PRN SL Nitroglycerin 0.4 MG Q5M PRN PRN SL Ondansetron HCl 4 MG Q4H PRN PRN IV Insulin Human Lispro 0 AC HS SUBQ (DC) Acetaminophen 650 MG Q4H PRN PRN PO (DC) Dextrose/Water 25 ML ASDIR PRN IV (DC) Dextrose/Water 50 ML ASDIR PRN IV (DC) Glucagon 1 MG ASDIR PRN IM (DC) Hydralazine HCl 10 MG Q2H PRN PRN IV (DC) Hydrocodone Bitart/Acetaminophen 1 TAB Q4H PRN PRN PO (DC) Morphine Sulfate 4 MG Q4H PRN PRN IV (DC) Ondansetron HCl 4 MG Q6H PRN PRN IV (DC) Physical Exam General appearance: alert, awake, oriented Head/Eyes: EOMI, normal conjunctiva/sclera ENT: moist mucosal membranes, normal pharynx Neck: non-tender, supple/no meningismus Cardiovascular: normal heart sounds, regular rate rhythm Respiratory: aerating well, symmetric expansion Abdomen: non-tender, normal bowel sounds, soft Extremities: moves all, no edema 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, oriented X 3, normal speech Skin: dry, intact Psychiatry: normal affect, normal judgment/insight Results Findings/Data: Laboratory Tests 02/05 Chemistry Sodium (134 - 147 mEq/L) 141 Potassium (3.4 - 5.0 mEq/L) 4.2 Chloride (100 - 108 mEq/L) 109 H Carbon Dioxide (21 - 33 mEq/l) 28 Anion Gap (0 - 20) 8 BUN (7 - 18 mg/dL) 21 H Creatinine (0.6 - 1.3 mg/dL) 1.4 H Glomerular Filtr Rate (90 - 95) 63.9 L Glucose (70 - 110 mg/dL) 98 Calcium (8.0 - 10.5 mg/dL) 8.9 Total Bilirubin (0.0 - 1.0 mg/dL) 0.60 AST (15 - 37 IUnit/L) 22 ALT (30 - 65 IUnit/L) 23 L Total Alk Phosphatase (20 - 125 IUnit/L) 55 Troponin I (0.000 - 0.045 ng/mL) 0.090 H 0.098 H Total Protein (6.4 - 8.2 g/dL) 7.0 Albumin (3.4 - 5.0 g/dL) 3.50 Triglycerides (40 - 150 mg/dL) 141 Cholesterol (<200 mg/dL) 188 LDL Cholesterol [place] (0 - 100 mg/dL) 160.1 H HDL Cholesterol (32 - 72 mg/dL) 30.5 L Cholesterol/HDL Ratio (3.43 - 4.97 RATIO) 6.16 H 02/04 Chemistry POC Glucose (70 - 110 MG/DL) 94 LDL Cholesterol Measurd (0 - 100 mg/dL) 166.8 H Laboratory Tests 02/05 0403 Hematology WBC (4.5 - 11.0 x10 3/uL) 5.2 RBC (4.00 - 5.60 x10 6/uL) 5.66 H Hgb (12.5 - 16.9 g/dL) 14.3 Hct (37.5 - 50.7 %) 45.3 MCV (81.0 - 99.0 fL) 80.0 L MCH (27.0 - 33.0 pg) 25.3 L MCHC (33.0 - 37.0 g/dL) 31.6 L RDW (11.5 - 14.5 %) 17.2 H Plt Count (150 - 400 x10 3/uL) 208 MPV (7.0 - 9.0 fL) 10.5 H Neut % (Auto) (56.0 - 77.0 %) 41.9 L Lymph % (Auto) (14.0 - 32.0 %) 43.2 H [place] % (Auto) (4.8 - 9.0 %) 12.0 H Eos % (Auto) (0.3 - 3.7 %) 2.3 Baso % (Auto) (0.0 - 2.0 %) 0.4 Neut # (Auto) (2.0 - 7.6 x10 3/uL) 2.19 Lymph # (Auto) (1.0 - 3.8 x10 3/uL) 2.26 [place] # (Auto) (0.1 - 0.8 x10 3/uL) 0.63 Eos # (Auto) (0.0 - 0.2 x10 3/uL) 0.12 Baso # (Auto) (0.0 - 0.2 x10 3/uL) 0.02 Abs Immat Gran (auto) (0.00 - 0.03 x10 3/uL) 0.01 Add Manual Diff NO Immature Gran % (0.0 - 2.0 %) 0.2 Nucleated RBC % (0 - 0 %) 0.0 Nucleated RBCs # (Man) (0.0 - 0.1 x10 3/uL) 0.00 Diagnosis, Assessment Plan Problem List/A P: 1. CHF (congestive heart failure) 2. Chest pain 3. Dyslipidemia 4. Hypertension 5. Diabetes mellitus Consultants: cardiology Free Text DxA P Notes Free text DxA P notes: Chest pain: Inpatient with history of severe systolic and diastolic CHF, hypertension, diabetes mellitus and dyslipidemia. Recent recath on 12/04 was suggestive of nonobstructive CAD. EKG suggestive of a paced rhythm, troponin mildly elevated Follow-up echocardiogram Cardiology has been consulted. U tox suggestive of cocaine, checked with patient twice and he denies any cocaine abuse or any prior history of substance abuse. D-dimer elevated, CTA was unremarkable for PE. Continue aspirin, Plavix, Coreg (discussed with patient regarding ADR if any history of cocaine abuse, he denies) and Lipitor. Severe systolic and diastolic CHF: No signs or symptoms to suggest acute exacerbation. Continue Lasix, Aldactone and Coreg, added lisinopril. Echo on 01/03 was suggestive of EF of less than 20%, dilated cardiomyopathy, grade 2 diastolic dysfunction and biatrial dilatation, follow with repeat echo. Diabetes mellitus type 2: Hold p.o. antidiabetic's. Started patient on sliding scale insulin. Dyslipidemia: Continue Lipitor. Hypertension: Continue Coreg, Norvasc, clonidine and lisinopril. DVT prophylaxis Lovenox subcu. Full code. Plan discussed with patient, answered all the questions. [facility] Current Medications Current medication review: I attest that the foregoing medication list in the medical record is true, accurate, and complete to the best of my knowledge. VTE Prophylaxis VTE prophylaxis initiated: yes (Lovenox) at 1341 RPT #:[id number] END OF REPORT [facility] 2021-02-05 08:09:00 [facility] ([facility]) Cardiology Consultation REPORT#:[id number] REPORT STATUS: Signed DATE:02/05/21 TIME: 808 PATIENT: BRYAN PARADA UNIT #: [id number] ROOM/BED: NIRALI : 66 AGE: 55 SEX: M ATTEND: Precious Bae MD ADM AUTHOR: Jolene Heath NP * ALL edits or amendments must be made on the electronic/computer document * History of Present Illness HPI Requesting Clinician: Dr. Bae Reason for consult: chest pain, elevated troponin, SOB Chief complaint: chest pain and SOB when laying down x 1 day PCP: PCP: No Primary or Family Physician HPI: The patient is 55-year-old male with past medical history significant for chronic systolic and diastolic CHF s/p AICD, diabetes mellitus type 2, hypertension, dyslipidemia, recent cath on 12/21 suggestive of nonobstructive CAD, and CVA in 01/21. Patient presented to [facility] with complaints of chest pain. Patient states he was laying down last night when symptoms started, describes this as 10 out of 10, substernal, continuous, associated with lower extremity swelling and shortness of breath. His symptoms continued throughout the night, taking aspirin and nitro twice did not alleviate the pain. He presented to [facility] where work-up showed mildly elevated troponin at 0.089 , D-dimer was 979, CTA chest negative for PE, urine drug screen positive for cocaine. Patient denies any drug abuse. Patient was transferred here for further evaluation and management. Educated patient about need for lifestyle changes. Cardiology plan echo pending, continue asa plavix, statin, HF medications. Thank you for the opportunity to participate on this case. History - Adult longitudinal Past medical history: Reports: Congestive heart failure, Coronary artery disease, Diabetes mellitus, Hypertension, Dyslipidemia, Ischemic stroke. Denies: Alcoholism/subst abuse. Additional medical history: Nonobstructive CAD Hypertension CHF status post dual chamber AICD (biotronik) Diabetes mellitus type 2 Dyslipidemia Additional surgical history: Knee surgery Status post AICD/PPM Additional family history: Both parents had hypertension Alcohol use: Denies EtOH use Drug use: Denies recreational drugs Smoking status: Smoking status for patients 13 years old or older: Never Smoker Other social history: Lives alone Home medications: Home Medications: glipiZIDE (GLUCOTROL) 5 MG PO BID SPIRONOLACTONE (ALDACTONE) 25 MG PO DAILY amLODIPine (NORVASC) 10 MG PO DAILY CARVEDILOL (COREG) 25 MG PO BID MEALS POTASSIUM BICARBONATE/CIT AC (EFFER-K 20 MEQ TABLET EFF) 20 MEQ PO DAILY cloNIDine (CATAPRES) 0.2 MG PO Q8H NITROGLYCERIN (NITROSTAT) 0.4 MG SL Q5M PRN PRN CHEST PAIN ATORVASTATIN (LIPITOR) 80 MG PO 1700 ASPIRIN 81 MG PO DAILY FUROSEMIDE (LASIX) 20 MG PO BID CLOPIDOGREL (PLAVIX) 75 MG PO DAILY Allergies: Coded Allergies: No Known Allergies (11/30/20) Occupation: unemployed Ambulatory status: Independent Review of Systems Constitutional: generalized weakness. Denies: chills, fatigue, fever. Skin: swelling. Allergy/Immun: Denies: allergic reaction. Eyes: Denies: visual loss/blurred. Respiratory: Reports: SOB. Denies: DELGADO (dyspnea on exertion). Cardiovascular: Reports: chest pain, edema, orthopnea, palpitations. GI: Denies: diarrhea, nausea, vomiting. Musculoskeletal: extremity swelling. Neuro: Denies: change in LOC. Psych: Denies: change in mental status, depression, suicidal ideation. All systems rev neg: except as marked Objective General VS/I O: Laboratory Tests 02/05/21 0403: [Embedded Image Not Available] Current Medications Sig/Mira Start time Last Medication Dose Route Stop Time Status Admin Atorvastatin Calcium 80 MG BEDTIME 02/05 2100 PO 03/07 2059 Amlodipine Besylate 10 MG DAILY 02/05 900 PO 03/07 859 Aspirin 81 MG DAILY 02/05 900 PO 03/07 08 Clopidogrel Bisulfate 75 MG DAILY 02/05 900 PO 03/07 08 Furosemide 20 MG BID@0900,1700 02/05 900 PO 03/07 08 Lisinopril 5 MG DAILY 02/05 900 PO 03/07 08 Spironolactone 25 MG DAILY 02/05 900 PO 03/07 0859 Carvedilol 25 MG BID MEALS 02/06 800 PO 03/07 075 Enoxaparin Sodium 40 MG Q24H 02/04 2200 AC 02/04 SUBQ 03/06 Acetaminophen 650 MG Q4H PRN PRN 02/04 2115 PO 03/06 2114 Al Hydrox/Mg Hydrox/ 30 ML Q4H PRN PRN 02/04 2115 Simethicone PO 03/06 2114 Clonidine HCl 0.2 MG Q8H 02/04 2115 AC 02/05 PO 03/06 2114 0502 Hydralazine HCl 10 MG Q2H PRN PRN 02/04 2115 AC IV 03/06 2114 Lactulose 20 GM Q6H PRN PRN 02/04 2115 AC PO 03/06 2114 Morphine Sulfate 2 MG Q4H PRN PRN 02/04 2115 AC 02/04 IV 02/09 Nitroglycerin 0.4 MG Q5M PRN PRN 02/04 2115 AC 02/05 SL 03/06 Nitroglycerin 0.4 MG Q5M PRN PRN 02/04 2115 AC SL 03/06 2114 Ondansetron HCl 4 MG Q4H PRN PRN 02/04 2115 AC 02/04 IV 03/06 Insulin Human Lispro 0 HS 02/04 2100 DC SUBQ 02/05 1913 Acetaminophen 650 MG Q4H PRN PRN 02/04 2015 DC PO 02/05 1913 Dextrose/Water 25 ML ASDIR PRN 02/04 2015 DC IV 02/05 1913 Dextrose/Water 50 ML ASDIR PRN 02/04 2015 DC IV 02/05 1913 Glucagon 1 MG ASDIR PRN 02/04 2015 DC IM 02/05 1913 Hydralazine HCl 10 MG Q2H PRN PRN 02/04 2015 DC IV 02/05 1913 Hydrocodone Bitart/ 1 TAB Q4H PRN PRN 02/04 2015 DC Acetaminophen PO 02/05 1913 Morphine Sulfate 4 MG Q4H PRN PRN 02/04 2015 DC IV 02/05 1913 Ondansetron HCl 4 MG Q6H PRN PRN 02/04 2015 DC IV 02/05 1913 Vital Signs: Date Time Temp Pulse Resp B/P B/P Pulse O2 O2 Flow FiO2 Mean Ox Delivery Rate 02/05 618 70 22 139/85 103 98 02/05 358 36.6 71 15 141/102 95 02/05 0201 73 15 126/79 94 94 Room air 02/04 2301 81 17 139/72 94 95 Room air 02/049 80 20 146/89 108 99 Room air 02/04 2101 80 17 146/89 108 99 Room air 02/05 2008 36.7 83 22 150/89 109 100 Room air 24 hour I O ending at 0700: 02/05 0700 02/04 1900 Intake Total Output Total Balance Patient 90.9 kg Weight Weight Stated/Reported Measurement Method PATIENT WEIGHT: Weight (lb): Weight (oz): Weight (kg): 90.900 Physical Exam General appearance: alert, awake, oriented, no acute distress Head/Eyes: atraumatic, PERRL Neck: no JVD Cardiovascular: CV assessment: regular rate and rhythm, no murmur, paced rhythm Respiratory: decreased breath sounds, shortness of breath Abdomen: soft, non-tender, normal bowel sounds, no distention Genitourinary: no flank pain Upper extremity: UE assessment: normal capillary refill, normal temperature, no edema, 2+ radial pulse Lower extremity: LE assessment: edema, normal capillary refill, normal temperature, 2+ peripheral pulses Musculoskeletal: normal inspection 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 Acute on chronic systolic HF with NICMP s/p dual chamber AICD LVEF <20% per last echo echo pending daily weights, strict I O, fluid restriction 1.2 L, Low Na diet continue coreg, aldactone, lisinopril, po lasix strongly encouraged lifestyle changes (pt did not know what meds he takes at home, so he likely doesn't take them regularly) 2. Chest pain with mildly elevated troponins due to cocaine abuse/CHF LHC done 12/30 showed no obstructive CAD urine drug screen positive for cocaine CTA chest negative for PE EKG noted, no acute changes V-paced educated about lifestyle changes continue asa, plavix, statin 3. HTN, uncontrolled continue norvasc, lisinopril, clonidine, coreg 4. Hyperlididemia LDL 168 continue lipitor 5. DM, uncontrolled per IM 6. CVA (01/2021) s/p TPA 7. Substance Abuse strongly encourage lifestyle changes at 1102 RPT #:[id number] END OF REPORT [facility] 2021-02-05 08:09:00 [facility] ([facility]) Cardiology Consultation REPORT#:[id number] REPORT STATUS: Signed DATE:02/05/21 TIME: 808 PATIENT: BRYAN PARADA UNIT #: [id number] ROOM/BED: [place] [address] : 66 AGE: 55 SEX: M ATTEND: Precious Bae MD ADM AUTHOR: Jolene Heath [employer] REPORTS DEVELOPER * ALL edits or amendments must be made on the electronic/computer document * History of Present Illness HPI Requesting Clinician: Dr. Bae Reason for consult: chest pain, elevated troponin, SOB Chief complaint: chest pain and SOB when laying down x 1 day PCP: PCP: No Primary or Family Physician HPI: The patient is 55-year-old male with past medical history significant for chronic systolic and diastolic CHF s/p AICD, diabetes mellitus type 2, hypertension, dyslipidemia, recent cath on 12/21 suggestive of nonobstructive CAD, and CVA in 01/21. Patient presented to [facility] with complaints of chest pain. Patient states he was laying down last night when symptoms started, describes this as 10 out of 10, substernal, continuous, associated with lower extremity swelling and shortness of breath. His symptoms continued throughout the night, taking aspirin and nitro twice did not alleviate the pain. He presented to [facility] where work-up showed mildly elevated troponin at 0.089 , D-dimer was 979, CTA chest negative for PE, urine drug screen positive for cocaine. Patient denies any drug abuse. Patient was transferred here for further evaluation and management. Educated patient about need for lifestyle changes. Cardiology plan echo pending, continue asa plavix, statin, HF medications. Thank you for the opportunity to participate on this case. History - Adult longitudinal Past medical history: Reports: Congestive heart failure, Coronary artery disease, Diabetes mellitus, Hypertension, Dyslipidemia, Ischemic stroke. Denies: Alcoholism/subst abuse. Additional medical history: Nonobstructive CAD Hypertension CHF status post dual chamber AICD (biotronik) Diabetes mellitus type 2 Dyslipidemia Additional surgical history: Knee surgery Status post AICD/PPM Additional family history: Both parents had hypertension Alcohol use: Denies EtOH use Drug use: Denies recreational drugs Smoking status: Smoking status for patients 13 years old or older: Never Smoker Other social history: Lives alone Home medications: Home Medications: glipiZIDE (GLUCOTROL) 5 MG PO BID SPIRONOLACTONE (ALDACTONE) 25 MG PO DAILY amLODIPine (NORVASC) 10 MG PO DAILY CARVEDILOL (COREG) 25 MG PO BID MEALS POTASSIUM BICARBONATE/CIT AC (EFFER-K 20 MEQ TABLET EFF) 20 MEQ PO DAILY cloNIDine (CATAPRES) 0.2 MG PO Q8H NITROGLYCERIN (NITROSTAT) 0.4 MG SL Q5M PRN PRN CHEST PAIN ATORVASTATIN (LIPITOR) 80 MG PO 1700 ASPIRIN 81 MG PO DAILY FUROSEMIDE (LASIX) 20 MG PO BID CLOPIDOGREL (PLAVIX) 75 MG PO DAILY Allergies: Coded Allergies: No Known Allergies (11/30/20) Occupation: unemployed Ambulatory status: Independent Review of Systems Constitutional: generalized weakness. Denies: chills, fatigue, fever. Skin: swelling. Allergy/Immun: Denies: allergic reaction. Eyes: Denies: visual loss/blurred. Respiratory: Reports: SOB. Denies: DELGADO (dyspnea on exertion). Cardiovascular: Reports: chest pain, edema, orthopnea, palpitations. GI: Denies: diarrhea, nausea, vomiting. Musculoskeletal: extremity swelling. Neuro: Denies: change in LOC. Psych: Denies: change in mental status, depression, suicidal ideation. All systems rev neg: except as marked Objective General VS/I O: Laboratory Tests 02/05/21 0403: [Embedded Image Not Available] Current Medications Sig/Mira Start time Last Medication Dose Route Stop Time Status Admin Atorvastatin Calcium 80 MG BEDTIME 02/05 2100 AC PO 03/07 2059 Amlodipine Besylate 10 MG DAILY 02/05 900 PO 03/07 08 Aspirin 81 MG DAILY 02/05 900 PO 03/07 0859 Clopidogrel Bisulfate 75 MG DAILY 02/05 900 PO 03/07 0859 Furosemide 20 MG BID@0900,1700 02/05 0900 PO 03/07 0859 Lisinopril 5 MG DAILY 02/05 900 PO 03/07 0859 Spironolactone 25 MG DAILY 02/05 900 PO 03/07 0859 Carvedilol 25 MG BID MEALS 02/06 800 PO 03/07 0759 Enoxaparin Sodium 40 MG Q24H 02/04 2200 AC 02/04 SUBQ 03/06 Acetaminophen 650 MG Q4H PRN PRN 02/04 2115 AC PO 03/06 2114 Al Hydrox/Mg Hydrox/ 30 ML Q4H PRN PRN 02/04 2115 AC Simethicone PO 03/06 2114 Clonidine HCl 0.2 MG Q8H 02/04 2115 AC 02/05 PO 03/06 2114 0502 Hydralazine HCl 10 MG Q2H PRN PRN 02/04 2115 AC IV 03/06 2114 Lactulose 20 GM Q6H PRN PRN 02/04 2115 AC PO 03/06 2114 Morphine Sulfate 2 MG Q4H PRN PRN 02/04 2115 AC 02/04 IV 02/09 Nitroglycerin 0.4 MG Q5M PRN PRN 02/04 2115 AC 02/05 SL 03/06 Nitroglycerin 0.4 MG Q5M PRN PRN 02/04 2115 AC SL 03/06 2114 Ondansetron HCl 4 MG Q4H PRN PRN 02/04 2115 AC 02/04 IV 03/06 Insulin Human Lispro 0 HS 02/04 2100 DC SUBQ 02/05 1913 Acetaminophen 650 MG Q4H PRN PRN 02/04 2015 DC PO 02/05 1913 Dextrose/Water 25 ML ASDIR PRN 02/04 2015 DC IV 02/05 1913 Dextrose/Water 50 ML ASDIR PRN 02/04 2015 DC IV 02/05 191 Glucagon 1 MG ASDIR PRN 02/04 2015 DC IM 02/05 1913 Hydralazine HCl 10 MG Q2H PRN PRN 02/04 2015 DC IV 02/05 191 Hydrocodone Bitart/ 1 TAB Q4H PRN PRN 02/04 2015 DC Acetaminophen PO 02/05 1913 Morphine Sulfate 4 MG Q4H PRN PRN 02/04 2015 DC IV 02/05 1913 Ondansetron HCl 4 MG Q6H PRN PRN 02/04 2015 DC IV 02/05 1913 Vital Signs: Date Time Temp Pulse Resp B/P B/P Pulse O2 O2 Flow FiO2 Mean Ox Delivery Rate 02/05 618 70 22 139/85 103 98 02/05 358 36.6 71 15 141/102 95 02/05 0201 73 15 126/79 94 94 Room air 02/04 2301 81 17 139/72 94 95 Room air 02/049 80 20 146/89 108 99 Room air 02/04 2101 80 17 146/89 108 99 Room air 02/05 2008 36.7 83 22 150/89 109 100 Room air 24 hour I O ending at 0700: 02/05 1900 Intake Total Output Total Balance Patient 90.9 kg Weight Weight Stated/Reported Measurement Method PATIENT WEIGHT: Weight (lb): Weight (oz): Weight (kg): 90.900 Physical Exam General appearance: alert, awake, oriented, no acute distress Head/Eyes: atraumatic, PERRL Neck: no JVD Cardiovascular: CV assessment: regular rate and rhythm, no murmur, paced rhythm Respiratory: decreased breath sounds, shortness of breath Abdomen: soft, non-tender, normal bowel sounds, no distention Genitourinary: no flank pain Upper extremity: UE assessment: normal capillary refill, normal temperature, no edema, 2+ radial pulse Lower extremity: LE assessment: edema, normal capillary refill, normal temperature, 2+ peripheral pulses Musculoskeletal: normal inspection 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 Acute on chronic systolic HF with NICMP s/p dual chamber AICD LVEF <20% per last echo echo pending daily weights, strict I O, fluid restriction 1.2 L, Low Na diet continue coreg, aldactone, lisinopril, po lasix strongly encouraged lifestyle changes (pt did not know what meds he takes at home, so he likely doesn't take them regularly) 2. Chest pain with mildly elevated troponins due to cocaine abuse/CHF LHC done 12/30 showed no obstructive CAD urine drug screen positive for cocaine CTA chest negative for PE EKG noted, no acute changes V-paced educated about lifestyle changes continue asa, plavix, statin 3. HTN, uncontrolled continue norvasc, lisinopril, clonidine, coreg 4. Hyperlididemia LDL 168 continue lipitor 5. DM, uncontrolled per IM 6. CVA (01/2021) s/p TPA 7. Substance Abuse strongly encourage lifestyle changes at 1102 at 1047 RPT #:[id number] END OF REPORT [facility] 2021-02-04 21:11:00 [facility] ([facility]) Hospitalist History Physical REPORT#:[id number] REPORT STATUS: Signed DATE:02/04/21 TIME: 2110 PATIENT: BRYAN PARADA UNIT #: [id number] ROOM/BED: [place] : 67 AGE: 55 SEX: M ATTEND: Precious Bae MD ADM AUTHOR: Precious Bae MD * ALL edits or amendments must be made on the electronic/computer document * History of Present Illness HPI Chief complaint: Transfer from [facility] for chest pain PCP: PCP: No Primary or Family Physician HPI: Patient is 55-year-old male with past medical history significant for severe systolic and diastolic CHF status post AICD, diabetes mellitus type 2, hypertension, dyslipidemia and recent cath on 12/04 suggestive of nonobstructive CAD. Patient presented to [facility] with complaints of chest pain. Patient states he was laying down last night when symptoms started, describes this as 10 out of 10, substernal, continuous, associated with swelling and shortness of breath. His symptoms continued throughout the night, taking aspirin and nitro twice did not alleviate the pain. He presented to [facility] where work-up was suggestive of mildly elevated troponin at 0.089 higher than his previous levels, D-dimer was 979, CT was performed with no evidence of PE, tox screen showed cocaine however patient denies any drug abuse. Patient was transferred here for further evaluation and management. History Past Medical Surgical Hx Additional medical history: Nonobstructive CAD Hypertension CHF status post AICD Diabetes mellitus type 2 Dyslipidemia Additional surgical history: Knee surgery Status post AICD/PPM Family History Additional family history: Both parents had hypertension Social History Alcohol use: Denies EtOH use Drug use: Denies recreational drugs Smoking status: Smoking status for patients 13 years old or older: Never Smoker Medication/Allergy-Vaccine Hx Medications: Home Medications: glipiZIDE (GLUCOTROL) 5 MG PO BID SPIRONOLACTONE (ALDACTONE) 25 MG PO DAILY amLODIPine (NORVASC) 10 MG PO DAILY CARVEDILOL (COREG) 25 MG PO BID MEALS POTASSIUM BICARBONATE/CIT AC (EFFER-K 20 MEQ TABLET EFF) 20 MEQ PO DAILY cloNIDine (CATAPRES) 0.2 MG PO Q8H NITROGLYCERIN (NITROSTAT) 0.4 MG SL Q5M PRN PRN CHEST PAIN ATORVASTATIN (LIPITOR) 80 MG PO 1700 ASPIRIN 81 MG PO DAILY FUROSEMIDE (LASIX) 20 MG PO BID CLOPIDOGREL (PLAVIX) 75 MG PO DAILY Allergies: Coded Allergies: No Known Allergies (11/30/20) Review of Systems Free Text ROS Notes Free Text ROS Notes: Extensive trouble review of system was obtained and was unremarkable except for what described above in HPI. Physical Exam VS/I O: Vital Signs Date Temp Pulse Resp B/P B/P Mean Pulse Ox FiO2 02/04 98.1 83 22 150/89 109 100 Last Documented: Result Date Time Pulse Ox 100 02/05 2008 B/P 150/89 02/05 2008 B/P Mean 109 02/05 2008 O2 Delivery Room air 02/05 2008 Temp 98.1 02/05 2008 Pulse 83 02/05 2008 Resp 22 02/05 2008 Patient Weight and BMI Weight (kg): 90.900 BMI: 25.7 General appearance: alert, awake, oriented Head/Eyes: EOMI, normal conjunctiva/sclera ENT: moist mucosal membranes, normal pharynx Neck: non-tender, supple/no meningismus Cardiovascular: normal heart sounds, regular rate rhythm Respiratory: aerating well, symmetric expansion Abdomen: non-tender, normal bowel sounds, soft Extremities: moves all, no edema 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, oriented X 3, normal speech Skin: dry, intact Psychiatry: normal affect, normal judgment/insight Results Findings/Data: Specimen Inquiry Report [facility]IDENTIAL Med.Director: Dago Barraza MD PATIENT: BRYAN PARADA LOC: L.ERS U# : [id number] FD: .DNK OD: .SELF AGE/SX: 55/M ROOM: RE02/04/21 RESDR: Isac Rouse STATUS: DEP ER BED: DIS: SPEC #: [id number] JACIEL: 02/04/21 STATUS: COMP REQ # : [id number] RECD: 02/04/21-[address]: Isac Rouse DO ENTERED: 02/04/21-[address]: No Primary or Family Physician Afua Engle ORDERED: CBC W/O DIFF Test Result Flag Reference Verified HEMATOLOGY CBC W/O DIFF > WHITE BLOOD CELL 6.0 3.5-11.0 K/mm3 > RED BLOOD CELL 5.80 4.70-6.10 M/mm3 > HEMOGLOBIN 14.5 12.3-15.9 G/DL > HEMATOCRIT 47.2 H 35.8-46.7 % > MEAN CELL VOLUME 81.4 L 86.3-98.9 Fl > MEAN CELL HGB 25.0 L 28.9-34.4 pg > MEAN CELL HGB CONCETRATION 30.7 L 32.1-34.5 G/DL > RED CELL DISTRIBUTION WIDTH 17.5 H 11.5-14.5 SD > PLATELET COUNT 230 150-450 K/mm3 > MEAN PLATELET VOLUME 10.90 H 7.0-9.6 fL Patient: BRYAN PARADA Age/Sex: 55/M Acct#[id number] Unit#[id number] Specimen Inquiry Report [facility] Med.Director: Dago Barraza MD PATIENT: BRYAN PARADA LOC: L.ERS U# : [id number] FD: .DNK OD: .SELF AGE/SX: 55/M ROOM: RE02/04/21 RESDR: Isac Rouse STATUS: DEP ER BED: DIS: SPEC #: [id number] JACIEL: 02/04/21 STATUS: COMP REQ # : [id number] RECD: 02/04/[address]: Isac Rouse DO ENTERED: 02/04/[address]: No Primary or Family Physician Afua Engle ORDERED: BASIC METABOLIC, CK, TROPI COMMENTS: Completed by Nursing: NO Test Result Flag Reference Verified CHEMISTRY BASIC METABOLIC PANEL > SODIUM 139 134-147 mmol/L > POTASSIUM 4.5 3.4-5.0 mmol/L > CHLORIDE 109 H 100-108 mmol/L > CARBON DIOXIDE 26 21-32 mmol/L > ANION GAP 4.0 4.0-15.0 GAP calc > GLUCOSE 102 70-110 MG/DL > BLOOD UREA NITROGEN 25 H 7-18 MG/DL > GLOMERULAR FILTRATION RATE >=60 max estimate >60 estGFR > CREATININE 1.3 0.8-1.3 MG/DL > CALCIUM 8.9 8.5-10.1 MG/DL > CREATINE KINASE (CK) 776 H 26-192 Unit/L > TROPONIN-I 0.089 *H 0.000-0.045 NG/ML Negative: </= 0.045 Positive: >/= 0.046 Correlation with serial results, other cardiac markers, and clinical findings is necessary to determine the clinical significance of this result. Quantitative results using different methodologies should not be compared to one another as numerical results may vary by method. Patient: BRYAN PARADA Age/Sex: 55/M Acct#[id number] Unit#[id number] Radiology data: [facility] Name: BRYAN PARADA [id number] Attending Dr: [place] [address] : 1965 Age: 55 Sex: M Acct: [id number] Loc: TONE Phone #: [phone] Exam Date: 02/04/2021 Status: DEP ER Fax #: Radiology No: Unit No: [id number] Exams: CPT: [id number] [place] [id number] EXAM: - CTA CHEST FOR PE LOCATION: [...] is unremarkable. Left chest wall 3-lead defibrillator PAGE 1 Signed Report Printed From [facility] (Continued) [facility] Name: BRYAN PARADA [address] Attending Dr: [place] [address] : 1965 Age: 55 Sex: M Acct: [id number] Loc: [facility] Phone #: [phone] Exam Date: 02/04/2021 Status: DEP ER Fax #: Radiology No: Unit No: [id number] Exams: CPT: [id number] [place] [id number] <Continued> is noted with leads in appropriate position. The thoracic aorta is nonaneurysmal. No significant aortic atherosclerosis. Minimal coronary artery calcifications. The esophagus is grossly unremarkable. VISUALIZED ABDOMEN: There is reflux of contrast into the hepatic veins. The visualized upper abdomen is unremarkable. SOFT TISSUES: Left chest wall defibrillator noted. BONES: No acute osseous findings. Mild thoracic texture scoliosis. IMPRESSION: 1. No pulmonary embolism. No acute findings throughout the lungs. 2. Borderline dilated heart chambers. at 1611 Reported and Signed by: Luis Rogers D.O. CC: Isac DARNELL Technologist: Carmen Ruggiero, RT(R) Transcribed Date/Time: 02/04/2021 (1611) Armoured Car Escort: [email or web address] Orig Print D/T: S: 02/04/2021 (7985) PAGE 2 Signed Report Printed From [facility] Diagnosis, Assessment Plan Problem List/A P: 1. CHF (congestive heart failure) 2. Chest pain 3. Dyslipidemia 4. Hypertension 5. Diabetes mellitus Free Text A P: Chest pain: Inpatient with history of severe systolic and diastolic CHF, hypertension, diabetes mellitus and dyslipidemia. Recent recath on 12/04 was suggestive of nonobstructive CAD. EKG suggestive of a paced rhythm, troponin mildly elevated 0.089, follow with serial troponin. Ordered echocardiogram. Cardiology has been consulted. U tox suggestive of cocaine, checked with patient twice and he denies any cocaine abuse or any prior history of substance abuse. D-dimer elevated, CTA was unremarkable for PE. Continue aspirin, Plavix, Coreg (discussed with patient regarding ADR if any history of cocaine abuse, he denies) and Lipitor. Severe systolic and diastolic CHF: No signs or symptoms to suggest acute exacerbation. Continue Lasix, Aldactone and Coreg, added lisinopril. Echo on 01/03 was suggestive of EF of less than 20%, dilated cardiomyopathy, grade 2 diastolic dysfunction and biatrial dilatation, follow with repeat echo. Diabetes mellitus type 2: Hold p.o. antidiabetic's. Started patient on sliding scale insulin. Dyslipidemia: Continue Lipitor. Hypertension: Continue Coreg, Norvasc, clonidine and lisinopril. DVT prophylaxis Lovenox subcu. Full code. Plan discussed with patient, answered all the questions. Consultants: cardiology Quality: [facility] Current Medications Current medication review: I attest that the foregoing medication list in the medical record is true, accurate, and complete to the best of my knowledge. VTE Prophylaxis VTE prophylaxis initiated: yes (Lovenox) Heart Failure:DC on BB,LANA/ARB HF DC medications: EF: <20% LANA / ARB / ARNI at discharge: Yes Beta-Brii at discharge: Yes Specific beta brii: carvedilol at 7704 RPT #:[id number] END OF REPORT [facility] 2021-02-04 20:10:00 [facility] ([facility]) EMERGENCY PROVIDER REPORT REPORT#:[id number] REPORT STATUS: Signed DATE:02/04/21 TIME: 2009 PATIENT: BRYAN PARADA UNIT #: [id number] ROOM/BED: PAULO AGE: 55 SEX: M PCP PHYS: No Primary or Family Physician SERVICE AUTHOR: Deven Queen MD * ALL edits or amendments must be made on the electronic/computer document * HPI-Chest Pain 40 and Over General Confirmed Patient Yes Initial Greet Date/Time 02/04/212001 Presentation Chief Complaint Chest pain Hx Obtained From Patient Sudden in Onset? Yes Onset Occurred Days ago Risk-Chest Pain 40 and Over Risk Stratification )( Coronary Artery Disease Risk factors reviewed )( Thoracic Aortic Dissection Risk factors reviewed )( Pulmonary Embolism Risk factors reviewed )( AMI-Aspirin Aspirin Last 24 Hrs 324 mg, Prior ED Past Medical History - Adult Stated Complaint TRANSFER FROM [facility] Allergies Coded Allergies: No Known Allergies (11/30/20) Home Medications Active Scripts ATORVASTATIN (LIPITOR) 80 MG PO 1700 ATORVASTATIN (LIPITOR) 80 MG PO 1700 #30 TAB Prov: 01/07/21 ASPIRIN 81 MG PO DAILY ASPIRIN 81 MG PO DAILY #30 TAB Prov: 01/07/21 FUROSEMIDE (LASIX) 20 MG PO BID FUROSEMIDE (LASIX) 20 MG PO BID #60 TABS Prov: 01/07/21 CLOPIDOGREL (PLAVIX) 75 MG PO DAILY 14 Days #14 TAB Prov: 12/05/20 Reported Medications glipiZIDE (GLUCOTROL) 5 MG PO BID SPIRONOLACTONE (ALDACTONE) 25 MG PO DAILY amLODIPine (NORVASC) 10 MG PO DAILY CARVEDILOL (COREG) 25 MG PO BID MEALS POTASSIUM BICARBONATE/CIT AC (EFFER-K 20 MEQ TABLET EFF) 20 MEQ PO DAILY cloNIDine (CATAPRES) 0.2 MG PO Q8H NITROGLYCERIN (NITROSTAT) 0.4 MG SL Q5M PRN PRN CHEST PAIN Past Medical History: Reports: Congestive heart failure, Hypertension. Additional Medical History Hypercholesterolemia, coronary artery disease Additional Surgical History Status post AICD/PPM Additional Family History Mother and father both with unknown cancers Physical Exam Vital Signs Vital Signs First Documented: Result Date Time Pulse Ox 100 02/05 2008 B/P 150/89 02/05 2008 B/P Mean 109 02/05 2008 O2 Delivery Room air 02/05 2008 Temp 98.1 02/05 2008 Pulse 83 02/05 2008 Resp 22 02/05 2008 Last Documented: Result Date Time Pulse Ox 100 02/05 2008 B/P 150/89 02/05 2008 B/P Mean 109 02/05 2008 O2 Delivery Room air 02/05 2008 Temp 98.1 02/05 2008 Pulse 83 02/05 2008 Resp 22 02/05 2008 Review of Vital Signs Reviewed Focused PE General/Const General/Const Awake, Alert Appearance/Presentation Obese. 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 MS Neck Neck No adenopathy, No swelling, No JVD, No tracheal deviation Resp/Chest Respiratory/Chest Breath sounds NL, Breath sounds = bilat, No respiratory distress Cardiovascular Cardiovascular Heart rate NL, Regular rhythm, Heart sounds NL, Cap refill not delayed Abdomen/GI Abdomen/GI Soft, Non-tender, No distention MS Lower Extrem Lower Ext/Pelvis/MS No swelling, Non-tender Skin Skin Color NL, Warm, Dry Neurologic Neurologic Oriented X3, Speech NL Interpretation Diagnostics Lab Results Interpretation Considerations Reviewed prior records Lab Statement Laboratory studies reviewed and considered in the medical decision-making. Re-Evaluation MDM ED Course Medication(s) Ordered Medication(s) Ordered: Cardiovascular Drugs Sig/Mira Start time Last Medication Dose Route Stop Time Status Admin Hydralazine HCl 10 MG Q2H PRN PRN 02/04 2015 DC IV 02/05 191 Central Nervous System Agents Sig/Mira Start time Last Medication Dose Route Stop Time Status Admin Acetaminophen 650 MG Q4H PRN PRN 02/04 2015 DC PO 02/05 1913 Hydrocodone Bitart/ 1 TAB Q4H PRN PRN 02/04 2015 DC Acetaminophen PO 02/05 1913 Morphine Sulfate 4 MG Q4H PRN PRN 02/04 2015 DC IV 02/05 191 Electrolytic, Caloric, And Winston Sig/Mira Start time Last Medication Dose Route Stop Time Status Admin Dextrose/Water 25 ML ASDIR PRN 02/04 2015 DC IV 02/05 1913 Dextrose/Water 50 ML ASDIR PRN 02/04 2015 DC IV 02/05 191 Gastrointestinal Drugs Sig/Mira Start time Last Medication Dose Route Stop Time Status Admin Ondansetron HCl 4 MG Q6H PRN PRN 02/04 2015 DC IV 02/05 191 Hormones And Synthetic Substit Sig/Mira Start time Last Medication Dose Route Stop Time Status Admin Insulin Human Lispro 0 AC HS 02/04 2100 DC SUBQ 07/06 1913 Glucagon 1 MG ASDIR PRN 02/04 2015 DC IM 02/05 1913 Patient Discharge Departure Vital Signs/Condition Vital Signs First Documented: Result Date Time Pulse Ox 100 02/05 2008 B/P 150/89 02/05 2008 B/P Mean 109 02/05 2008 O2 Delivery Room air 02/05 2008 Temp 98.1 02/05 2008 Pulse 83 02/05 2008 Resp 22 02/05 2008 Last Documented: Result Date Time Pulse Ox 100 02/05 2008 B/P 150/89 02/05 2008 B/P Mean 109 02/05 2008 O2 Delivery Room air 02/05 2008 Temp 98.1 02/05 2008 Pulse 83 02/05 2008 Resp 22 02/05 2008 All vital signs available at the time of this entry have been reviewed. Condition Guarded Clinical Impression Clinical Impression Primary Impression: Chest pain Secondary Impressions: Elevated troponin I level Disposition Decision Admit Admit Physician Name Precious Bae MD Admit Physician Hospitalist )( Admission Accepts Yes )( Accepted Time 2011 )( Accepted Date 02/04/21 Discharge/Care Plan Counseled Regarding Lab results, Need for admission at 0600 RPT #:[id number] END OF REPORT [facility] 2021-02-04 15:08:00 [facility] ([facility]) EMERGENCY PROVIDER REPORT REPORT#:[id number] REPORT STATUS: Signed DATE:02/04/21 TIME:1508 PATIENT: BRYAN PARADA UNIT #: [id number] ROOM/BED: : 66 AGE: 55 SEX: M PCP PHYS: DOES_NOT KNOW SERVICE AUTHOR: Afua Engle * ALL edits or amendments must be made on the electronic/computer document * HPI-Chest Pain 40 and Over Free Text HPI Notes Free Text HPI Notes 55-year-old male presents to the by EMS for chief complaint of chest pain or shortness of breath that began at 10 PM last night. Patient states he does have a history of hypertension has not taken his medications. Patient states in October 2020 at [facility] he did receive in the pacemaker/AED. States he uses [employer] and has never had an interrogated since. Patient states he is retaining fluid bilaterally on lower extremities. Patient states he has a sit up at night to rest and to go to sleep. Denies any other symptoms or complaints. General Confirmed Patient Yes Patient Type New patient Initial Greet Date/Time 02/04/21 1257 Presentation Chief Complaint Chest pain Hx Obtained From Patient Sudden in Onset? No Onset Occurred Yesterday Symptom Duration Waxes and wanes Radiation Does not radiate. No: Abdomen, Arm R, Arm L, Back, Jaw, Neck, Shoulder R, Shoulder L, See diagram. )( Migration/Movement None Severity: Onset Moderate Severity: Current Moderate Context Immunization Status General All up to date Risk-Chest Pain 40 and Over Risk Stratification )( Coronary Artery Disease Risk factors reviewed, No risk factors )( Thoracic Aortic Dissection Risk factors reviewed, No risk factors )( Pulmonary Embolism Risk factors reviewed, No risk factors )( AMI-Aspirin Aspirin Last 24 Hrs On arrival )( HEART for MACE )( HEART for MACE Response Value History Mod index of suspicion 1 ECG Interpretation Normal ECG 0 Age Age 45 - 65 1 Risk Factors for CAD 3+ CAD risk factors 2 Troponin 1 to 3x NL troponin 1 Total 5 HEART Score for MACE 4-7 (mod risk 12%-16.6%) HEART Score Reference Resource material only. Click 'Cancel' button and information will not be inserted into or become part of the medical record Risk factors considered for determining a patient's HEART Score include: hypercholesterolemia (hyperlipidemia), hypertension, diabetes mellitus, cigarette smoking, positive family history and obesity. Major Adverse Cardiac Events (MACE) include: acute myocardial infarction, ischaemic stroke, coronary arterial occlusion and . References: Jag QUINONES, Jose Carlos SEQUEIRA, et al. Chest pain in the emergency room: value of the HEART score. Net Heart J. 2008 Marcellus:16(6):191-6. PubMed PMID: 39473905; PubMed Central PMCID: [id number]. Jose Carlos SEQUEIRA, Jag QUINONES, et al. A prospective validation of the HEART score for chest pain patients at the emergency department. Int J Cardiol. 2013 May 3:168(3):2153 -8. Doi: 10.1016/j.ijcard.2013..255. Epub 2012Oct 07. PubMed PMID: [id number]. Review of Systems ROS Statements All systems rev neg except as marked. Complete sys rev neg except as marked. Basic Review of Systems Basic ROS EYES: No redness, ENT: No sore throat, : No dysuria/frequency, HEM: No bleeding/bruising Focused Review of Systems Constitutional Denies: Chills, Fatigue, Fever, Lethargy, Malaise, Recent wt loss, Weakness - generalized. Respiratory Reports: Shortness of breath. Cardiovascular Reports: Chest pain. GI Denies: Abdominal pain, Anorexia, Belching, Bloody/tarry stool, Constipation, Diarrhea, Dysphagia, Hematemesis, Hematochezia, Mucousy stool, Melena, Nausea, Rectal pain, Vomiting. Musculoskeletal Denies: Back pain, Extremity pain, Extremity swelling, Joint pain, Joint swelling, Lumbar pain, Myalgia, Neck pain, Thoracic pain. Skin Denies: Abrasion, Abscess, Burn, Contusion, Diaphoresis, Erythema, Itching, Jaundice, Laceration, Rash, Swelling, Ulceration. Neurologic Denies: Abnormal movement, Bladder dysfunction, Bowel dysfunction, Change LOC, Confusion, Dizziness, Focal weakness, Generalized weakness, Headache, Lightheaded, Numbness, Problem walking, Seizure, Shaking, Slurred speech, Spinning sensation, Syncope, Tingling, Unable to speak, Vision change. Past Medical History - Adult Stated Complaint CHEST PAIN SINCE 10PM YESTERDAY Allergies Coded Allergies: No Known Allergies (11/30/20) Home Medications Active Scripts ATORVASTATIN (LIPITOR) 80 MG PO 1700 ATORVASTATIN (LIPITOR) 80 MG PO 1700 #30 TAB Prov: 01/07/21 ASPIRIN 81 MG PO DAILY ASPIRIN 81 MG PO DAILY #30 TAB Prov: 01/07/21 FUROSEMIDE (LASIX) 20 MG PO BID FUROSEMIDE (LASIX) 20 MG PO BID #60 TABS Prov: 01/07/21 LISINOPRIL (ZESTRIL) 5 MG PO DAILY LISINOPRIL (ZESTRIL) 5 MG PO DAILY #30 TABS Prov: 02/06/21 CLOPIDOGREL (PLAVIX) 75 MG PO DAILY 14 Days #14 TAB Prov: 12/05/20 Reported Medications glipiZIDE (GLUCOTROL) 5 MG PO BID SPIRONOLACTONE (ALDACTONE) 25 MG PO DAILY amLODIPine (NORVASC) 10 MG PO DAILY CARVEDILOL (COREG) 25 MG PO BID MEALS POTASSIUM BICARBONATE/CIT AC (EFFER-K 20 MEQ TABLET EFF) 20 MEQ PO DAILY cloNIDine (CATAPRES) 0.2 MG PO Q8H NITROGLYCERIN (NITROSTAT) 0.4 MG SL Q5M PRN PRN CHEST PAIN Calculated Suicide Risk (nurs) No risk Review of Nursing Notes Rev avail, and agree Pt reports no significant: Family history, Social history Past Medical History: Reports: Congestive heart failure, Hypertension. Additional Medical History Hypercholesterolemia, coronary artery disease Additional Surgical History Status post AICD/PPM Additional Family History Mother and father both with unknown cancers Smoking status: Smoking status for patients 13 years old or older: Never Smoker Physical Exam Vital Signs Vital Signs First Documented: Result Date Time Pulse Ox 98 02/04 1300 B/P 182/120 02/04 1300 B/P Mean 140 02/04 1300 O2 Delivery Room air 02/04 1300 Temp 37.0 02/04 1300 Pulse 84 02/04 1300 Resp 18 02/04 1300 Last Documented: Result Date Time Pulse Ox 96 02/05 1916 B/P 155/102 02/05 1916 B/P Mean 119 02/05 1916 O2 Delivery Room air 02/05 1916 Temp 36.9 02/05 1916 Pulse 71 02/05 1916 Resp 20 02/05 1916 Review of Vital Signs Reviewed, Vital signs normal Basic Physical Exam Basic PE HEAD: Atraumatic/NC, EYES: PERRL, conj clear, ENT: Membranes moist, NECK: Supple, EXT: No gross abnormality, SKIN: No rashes, warm/dry, NEURO: alert oriented, NEURO: gross movement NL, PSYCH: NL thought content Focused PE General/Const General/Const Awake, Alert, No acute distress MS Neck Neck Atraumatic, Supple, No meningismus, Full range of motion Resp/Chest Respiratory/Chest Atraumatic, Breath sounds NL, Breath sounds = bilat, No respiratory distress Cardiovascular Cardiovascular Heart rate NL, Regular rhythm, Heart sounds NL, No murmurs, Cap refill not delayed, Peripheral circulation NL Abdomen/GI Abdomen/GI Atraumatic, Soft, Non-tender, McBurney's non-tender MS Back Back Atraumatic, Inspection NL, Full range of motion, Painless range of motion MS Lower Extrem Lower Ext/Pelvis/MS Atraumatic, Inspection NL, Full range of motion, No swelling Interpretation Diagnostics Lab Results Interpretation Results Laboratory Tests 02/04/21 1314: [Embedded Image Not Available] Laboratory Tests: 02/04 1701 Toxicology Urine Opiates Screen (<2000 NG/ML SCcutoff) NEGATIVE Urine Methadone Screen (<300 NG/ML SCcutoff) NEGATIVE Urine Barbiturates (<200 NG/ML SCcutoff) NEGATIVE Ur Phencyclidine Scrn (<25 NG/ML SCcutoff) NEGATIVE Ur Amphetamines Screen (<1000 NG/ML SCcutoff) NEGATIVE U Benzodiazepines Scrn (<200 NG/ML SCcutoff) NEGATIVE Urine Cocaine Screen (<300 NG/ML SCcutoff) POSITIVE H Urine Cannabinoids (<50 NG/ML SCcutoff) NEGATIVE Urines Urine Color (YEL/STRAW discript) YELLOW Urine Appearance (CLEAR discript) CLEAR Urine pH (5.0 - 7.0 pH UNITS) 5.5 Ur Specific [place] (1.005 - 1.030 SG) 1.015 Urine Protein (NEG mg/dL) 1+ H Urine Glucose (UA) (NEG mg/dL) NEGATIVE Urine Ketones (NEG mg/dL) NEGATIVE Urine Blood (NEG mg/DL) NEGATIVE Urine Nitrite (NEG SCREEN) NEGATIVE Urine Bilirubin (NEG mg/dL) NEGATIVE Urine Urobilinogen (<2.0 mg/dL) 0.2 Ur Leukocyte Esterase (NEGATIVE Leuk/mcL) NEGATIVE Urine RBC (0 - 3 #RBC/HPF) NONE SEEN Urine WBC (0 - 3 #WBC/HPF) 1-3 Ur Squamous Epith Cells (NONE /HPF) TRACE Urine Bacteria (NONE - TRACE /HPF) TRACE Urine Culture Screen (Culture CHK Criteria) NO, WBC<10 02/04 1314 Chemistry Sodium (134 - 147 mmol/L) 139 Potassium (3.4 - 5.0 mmol/L) 4.5 Chloride (100 - 108 mmol/L) 109 H Carbon Dioxide (21 - 32 mmol/L) 26 Anion Gap (4.0 - 15.0 GAP calc) 4.0 BUN (7 - 18 MG/DL) 25 H Creatinine (0.8 - 1.3 MG/DL) 1.3 Glomerular Filtr Rate (>60 estGFR) >=60 max estimate Glucose (70 - 110 MG/DL) 102 Calcium (8.5 - 10.1 MG/DL) 8.9 Total Creatine Kinase (26 - 192 Unit/L) 776 H Troponin I (0.000 - 0.045 NG/ML) 0.089 *H Coagulation D-Dimer (215 - 500 ng/mLFEU) 979 *H Hematology WBC (3.5 - 11.0 K/mm3) 6.0 RBC (4.70 - 6.10 M/mm3) 5.80 Hgb (12.3 - 15.9 G/DL) 14.5 Hct (35.8 - 46.7 %) 47.2 H MCV (86.3 - 98.9 Fl) 81.4 L MCH (28.9 - 34.4 pg) 25.0 L MCHC (32.1 - 34.5 G/DL) 30.7 L RDW (11.5 - 14.5 SD) 17.5 H Plt Count (150 - 450 K/mm3) 230 MPV (7.0 - 9.6 fL) 10.90 H Serology SARS-CoV-2 Ag (Rapid) (Negative) NEGATIVE Recent Impressions: RADIOLOGY - XR CHEST 1 V 02/04 1320 Report Impression - Status: SIGNED Entered: 02/04/2021 1347 IMPRESSION: 1. Mild cardiomegaly and central venous congestion, without acute decompensation. Impression By: [email or web address] - Geoff Scott M.D. CAT SCAN - CTA CHEST FOR PE 02/04 1530 Report Impression - Status: SIGNED Entered: 02/04/2021 1615 IMPRESSION: 1. No pulmonary embolism. No acute findings throughout the lungs. 2. Borderline dilated heart chambers. Impression By: [email or web address] - Luis Rogers D.O. Point of Care Testing Pulse Oximetry Pulse Ox % 98 On: Room air Interpretation Interpreted by me, Pulse oximetry normal Time 1300 Re-Evaluation MDM Free Text MDM Notes Free Text MDM Notes Dr. Daniel accepted patient. ED Course Medication(s) Ordered Medication(s) Ordered: Blood Formation,Coagulation Sig/Mira Start time Last Medication Dose Route Stop Time Status Admin Enoxaparin Sodium 127.2728 MG X1ED STA 02/04 1510 DC 02/04 SUBQ 02/04 1511 1539 Cardiovascular Drugs Sig/Mira Start time Last Medication Dose Route Stop Time Status Admin Hydralazine HCl 10 MG X1ED STA 02/04 1723 DC 02/04 IV 02/04 1724 1737 Central Nervous System Agents Sig/Mira Start time Last Medication Dose Route Stop Time Status Admin Morphine Sulfate 2 MG X1ED STA 1723 DC 07/05 IV 07/05 1724 1738 Aspirin 324 MG X1ED STA 07/05 1302 DC 07/05 PO 07/05 1303 1315 Morphine Sulfate 4 MG X1ED STA 07/05 1302 DC 07/05 IV 07/05 1303 1315 Diagnostic Agents Sig/Mira Start time Last Medication Dose Route Stop Time Status Admin Iopamidol 0 .STK-MED ONE 02/04 1523 DC 07/05 .ROUTE 1548 Electrolytic, Caloric, And Winston Sig/Mira Start time Last Medication Dose Route Stop Time Status Admin Sodium Chloride 100 ML .STK-MED ONE 02/04 1549 DC 07/05 IV 07/05 1550 1549 Furosemide 40 MG X1ED STA 07/ 1522 DC 07/05 IV 07/05 1523 1540 Patient Discharge Departure Vital Signs/Condition Vital Signs First Documented: Result Date Time Pulse Ox 98 07/ 1300 B/P 182/120 07/ 1300 B/P Mean 140 07/05 1300 O2 Delivery Room air 02/04 1300 Temp 37.0 /05 1300 Pulse 84 07/05 1300 Resp 18 07/05 1300 Last Documented: Result Date Time Pulse Ox 96 / 191 B/P 155/102 / 191 B/P Mean 119 /05 191 O2 Delivery Room air 02/04 191 Temp 36.9 / 191 Pulse 71 07/ 191 Resp 20 /05 1916 All vital signs available at the time of this entry have been reviewed. Condition Stable Clinical Impression Clinical Impression Primary Impression: Chest pain Secondary Impressions: CHF (congestive heart failure), NSTEMI (non-ST elevated myocardial infarction) Disposition Decision Transfer )( Request Time 1522 )( Request Date 02/04/21 at 1019 RPT #: [id number] END OF REPORT [facility] 2021-02-04 15:08:00 [facility] ([facility]) EMERGENCY PROVIDER REPORT REPORT#:[id number] REPORT STATUS: Signed DATE:02/04/21 TIME:1508 PATIENT: BRYAN PARADA UNIT #: [id number] ROOM/BED: : 66 AGE: 55 SEX: M PCP PHYS: DOES_NOT KNOW SERVICE AUTHOR: Afua Engle * ALL edits or amendments must be made on the electronic/computer document * OnielAfua 02/04/21 1508: HPI-Chest Pain 40 and Over Free Text HPI Notes Free Text HPI Notes 55-year-old male presents to the by EMS for chief complaint of chest pain or shortness of breath that began at 10 PM last night. Patient states he does have a history of hypertension has not taken his medications. Patient states in October 2020 at [facility] he did receive in the pacemaker/AED. States he uses [employer] and has never had an interrogated since. Patient states he is retaining fluid bilaterally on lower extremities. Patient states he has a sit up at night to rest and to go to sleep. Denies any other symptoms or complaints. General Confirmed Patient Yes Patient Type New patient Initial Greet Date/Time 02/04/21 1257 Presentation Chief Complaint Chest pain Hx Obtained From Patient Sudden in Onset? No Onset Occurred Yesterday Symptom Duration Waxes and wanes Radiation Does not radiate. No: Abdomen, Arm R, Arm L, Back, Jaw, Neck, Shoulder R, Shoulder L, See diagram. )( Migration/Movement None Severity: Onset Moderate Severity: Current Moderate Context Immunization Status General All up to date Risk-Chest Pain 40 and Over Risk Stratification )( Coronary Artery Disease Risk factors reviewed, No risk factors )( Thoracic Aortic Dissection Risk factors reviewed, No risk factors )( Pulmonary Embolism Risk factors reviewed, No risk factors )( AMI-Aspirin Aspirin Last 24 Hrs On arrival )( HEART for MACE )( HEART for MACE Response Value History Mod index of suspicion 1 ECG Interpretation Normal ECG 0 Age Age 45 - 65 1 Risk Factors for CAD 3+ CAD risk factors 2 Troponin 1 to 3x NL troponin 1 Total 5 HEART Score for MACE 4-7 (mod risk 12%-16.6%) HEART Score Reference Resource material only. Click 'Cancel' button and information will not be inserted into or become part of the medical record Risk factors considered for determining a patient's HEART Score include: hypercholesterolemia (hyperlipidemia), hypertension, diabetes mellitus, cigarette smoking, positive family history and obesity. Major Adverse Cardiac Events (MACE) include: acute myocardial infarction, ischaemic stroke, coronary arterial occlusion and . References: Jag QUINONES, Jose Carlos SEQUEIRA, et al. Chest pain in the emergency room: value of the HEART score. [facility] Heart J. 2008 Marcellus:16(6):191-6. PubMed PMID: [id number]; PubMed Central PMCID: [id number]. Jose Carlos SEQUEIRA, Jag QUINONES, et al. A prospective validation of the HEART score for chest pain patients at the emergency department. Int J Cardiol. 2013 May 3:168(3):2153 -8. Doi: 10.1016/j.ijcard.2013..255. Epub 2012Oct 07. PubMed PMID: [id number]. Review of Systems ROS Statements All systems rev neg except as marked. Complete sys rev neg except as marked. Basic Review of Systems Basic ROS EYES: No redness, ENT: No sore throat, : No dysuria/frequency, HEM: No bleeding/bruising Focused Review of Systems Constitutional Denies: Chills, Fatigue, Fever, Lethargy, Malaise, Recent wt loss, Weakness - generalized. Respiratory Reports: Shortness of breath. Cardiovascular Reports: Chest pain. GI Denies: Abdominal pain, Anorexia, Belching, Bloody/tarry stool, Constipation, Diarrhea, Dysphagia, Hematemesis, Hematochezia, Mucousy stool, Melena, Nausea, Rectal pain, Vomiting. Musculoskeletal Denies: Back pain, Extremity pain, Extremity swelling, Joint pain, Joint swelling, Lumbar pain, Myalgia, Neck pain, Thoracic pain. Skin Denies: Abrasion, Abscess, Burn, Contusion, Diaphoresis, Erythema, Itching, Jaundice, Laceration, Rash, Swelling, Ulceration. Neurologic Denies: Abnormal movement, Bladder dysfunction, Bowel dysfunction, Change LOC, Confusion, Dizziness, Focal weakness, Generalized weakness, Headache, Lightheaded, Numbness, Problem walking, Seizure, Shaking, Slurred speech, Spinning sensation, Syncope, Tingling, Unable to speak, Vision change. Past Medical History - Adult Stated Complaint CHEST PAIN SINCE 10PM YESTERDAY Allergies Coded Allergies: No Known Allergies (11/30/20) Home Medications Active Scripts ATORVASTATIN (LIPITOR) 80 MG PO 1700 ATORVASTATIN (LIPITOR) 80 MG PO 1700 #30 TAB Prov: 01/07/21 ASPIRIN 81 MG PO DAILY ASPIRIN 81 MG PO DAILY #30 TAB Prov: 01/07/21 FUROSEMIDE (LASIX) 20 MG PO BID FUROSEMIDE (LASIX) 20 MG PO BID #60 TABS Prov: 01/07/21 LISINOPRIL (ZESTRIL) 5 MG PO DAILY LISINOPRIL (ZESTRIL) 5 MG PO DAILY #30 TABS Prov: 02/06/21 CLOPIDOGREL (PLAVIX) 75 MG PO DAILY 14 Days #14 TAB Prov: 12/05/20 Reported Medications glipiZIDE (GLUCOTROL) 5 MG PO BID SPIRONOLACTONE (ALDACTONE) 25 MG PO DAILY amLODIPine (NORVASC) 10 MG PO DAILY CARVEDILOL (COREG) 25 MG PO BID MEALS POTASSIUM BICARBONATE/CIT AC (EFFER-K 20 MEQ TABLET EFF) 20 MEQ PO DAILY cloNIDine (CATAPRES) 0.2 MG PO Q8H NITROGLYCERIN (NITROSTAT) 0.4 MG SL Q5M PRN PRN CHEST PAIN Calculated Suicide Risk (nurs) No risk Review of Nursing Notes Rev avail, and agree Pt reports no significant: Family history, Social history Past Medical History: Reports: Congestive heart failure, Hypertension. Additional Medical History Hypercholesterolemia, coronary artery disease Additional Surgical History Status post AICD/PPM Additional Family History Mother and father both with unknown cancers Smoking status: Smoking status for patients 13 years old or older: Never Smoker Physical Exam Vital Signs Vital Signs First Documented: Result Date Time Pulse Ox 98 02/04 1300 B/P 182/120 02/04 1300 B/P Mean 140 02/04 1300 O2 Delivery Room air 02/04 1300 Temp 37.0 02/04 1300 Pulse 84 02/04 1300 Resp 18 02/04 1300 Last Documented: Result Date Time Pulse Ox 96 02/05 1916 B/P 155/102 02/05 1916 B/P Mean 119 02/05 1916 O2 Delivery Room air 02/05 1916 Temp 36.9 02/05 1916 Pulse 71 02/05 1916 Resp 20 02/05 1916 Review of Vital Signs Reviewed, Vital signs normal Basic Physical Exam Basic PE HEAD: Atraumatic/NC, EYES: PERRL, conj clear, ENT: Membranes moist, NECK: Supple, EXT: No gross abnormality, SKIN: No rashes, warm/dry, NEURO: alert oriented, NEURO: gross movement NL, PSYCH: NL thought content Focused PE General/Const General/Const Awake, Alert, No acute distress MS Neck Neck Atraumatic, Supple, No meningismus, Full range of motion Resp/Chest Respiratory/Chest Atraumatic, Breath sounds NL, Breath sounds = bilat, No respiratory distress Cardiovascular Cardiovascular Heart rate NL, Regular rhythm, Heart sounds NL, No murmurs, Cap refill not delayed, Peripheral circulation NL Abdomen/GI Abdomen/GI Atraumatic, Soft, Non-tender, McBurney's non-tender MS Back Back Atraumatic, Inspection NL, Full range of motion, Painless range of motion MS Lower Extrem Lower Ext/Pelvis/MS Atraumatic, Inspection NL, Full range of motion, No swelling Interpretation Diagnostics Lab Results Interpretation Results Laboratory Tests 02/04/21 1314: [Embedded Image Not Available] Laboratory Tests: 02/04 02/04 1701 1314 Chemistry Sodium (134 - 147 mmol/L) 139 Potassium (3.4 - 5.0 mmol/L) 4.5 Chloride (100 - 108 mmol/L) 109 H Carbon Dioxide (21 - 32 mmol/L) 26 Anion Gap (4.0 - 15.0 GAP calc) 4.0 BUN (7 - 18 MG/DL) 25 H Creatinine (0.8 - 1.3 MG/DL) 1.3 Glomerular Filtr Rate (>60 estGFR) >=60 max estimate Glucose (70 - 110 MG/DL) 102 Calcium (8.5 - 10.1 MG/DL) 8.9 Total Creatine Kinase (26 - 192 Unit/L) 776 H Troponin I (0.000 - 0.045 NG/ML) 0.089 *H Coagulation D-Dimer (215 - 500 ng/mLFEU) 979 *H Hematology WBC (3.5 - 11.0 K/mm3) 6.0 RBC (4.70 - 6.10 M/mm3) 5.80 Hgb (12.3 - 15.9 G/DL) 14.5 Hct (35.8 - 46.7 %) 47.2 H MCV (86.3 - 98.9 Fl) 81.4 L MCH (28.9 - 34.4 pg) 25.0 L MCHC (32.1 - 34.5 G/DL) 30.7 L RDW (11.5 - 14.5 SD) 17.5 H Plt Count (150 - 450 K/mm3) 230 MPV (7.0 - 9.6 fL) 10.90 H Serology SARS-CoV-2 Ag (Rapid) (Negative) NEGATIVE Toxicology Urine Opiates Screen (<2000 NG/ML SCcutoff) NEGATIVE Urine Methadone Screen (<300 NG/ML SCcutoff) NEGATIVE Urine Barbiturates (<200 NG/ML SCcutoff) NEGATIVE Ur Phencyclidine Scrn (<25 NG/ML SCcutoff) NEGATIVE Ur Amphetamines Screen (<1000 NG/ML SCcutoff) NEGATIVE U Benzodiazepines Scrn (<200 NG/ML SCcutoff) NEGATIVE Urine Cocaine Screen (<300 NG/ML SCcutoff) POSITIVE H Urine Cannabinoids (<50 NG/ML SCcutoff) NEGATIVE Urines Urine Color (YEL/STRAW discript) YELLOW Urine Appearance (CLEAR discript) CLEAR Urine pH (5.0 - 7.0 pH UNITS) 5.5 Ur Specific [place] (1.005 - 1.030 SG) 1.015 Urine Protein (NEG mg/dL) 1+ H Urine Glucose (UA) (NEG mg/dL) NEGATIVE Urine Ketones (NEG mg/dL) NEGATIVE Urine Blood (NEG mg/DL) NEGATIVE Urine Nitrite (NEG SCREEN) NEGATIVE Urine Bilirubin (NEG mg/dL) NEGATIVE Urine Urobilinogen (<2.0 mg/dL) 0.2 Ur Leukocyte Esterase (NEGATIVE Leuk/mcL) NEGATIVE Urine RBC (0 - 3 #RBC/HPF) NONE SEEN Urine WBC (0 - 3 #WBC/HPF) 1-3 Ur Squamous Epith Cells (NONE /HPF) TRACE Urine Bacteria (NONE - TRACE /HPF) TRACE Urine Culture Screen (Culture CHK Criteria) NO, WBC<10 Recent Impressions: RADIOLOGY - XR CHEST 1 V 02/04 1320 Report Impression - Status: SIGNED Entered: 02/04/2021 1347 IMPRESSION: 1. Mild cardiomegaly and central venous congestion, without acute decompensation. Impression By: [email or web address] - Geoff Scott M.D. CAT SCAN - CTA CHEST FOR PE 02/04 1530 Report Impression - Status: SIGNED Entered: 02/04/2021 1615 IMPRESSION: 1. No pulmonary embolism. No acute findings throughout the lungs. 2. Borderline dilated heart chambers. Impression By: [email or web address] - Luis Rogers D.O. Point of Care Testing Pulse Oximetry Pulse Ox % 98 On: Room air Interpretation Interpreted by me, Pulse oximetry normal Time 1300 Re-Evaluation MDM Free Text MDM Notes Free Text MDM Notes Dr. Daniel accepted patient. ED Course Medication(s) Ordered Medication(s) Ordered: Blood Formation,Coagulation Sig/Mira Start time Last Medication Dose Route Stop Time Status Admin Enoxaparin Sodium 127.2728 MG X1ED STA 07/05 1510 DC 07/05 SUBQ 07/05 1511 1539 Cardiovascular Drugs Sig/Mira Start time Last Medication Dose Route Stop Time Status Admin Hydralazine HCl 10 MG X1ED STA 07/05 1723 DC 07/05 IV 07/05 1724 1737 Central Nervous System Agents Sig/Mira Start time Last Medication Dose Route Stop Time Status Admin Morphine Sulfate 2 MG X1ED STA 07/ 1723 DC 07/05 IV 07/05 1724 1738 Aspirin 324 MG X1ED STA 07/05 1302 DC 07/05 PO 07/05 1303 1315 Morphine Sulfate 4 MG X1ED STA 07/ 1302 DC 07/05 IV 07/05 1303 1315 Diagnostic Agents Sig/Mira Start time Last Medication Dose Route Stop Time Status Admin Iopamidol 0 .STK-MED ONE / 1523 DC 07/05 .ROUTE 1548 Electrolytic, Caloric, And Winston Sig/Mira Start time Last Medication Dose Route Stop Time Status Admin Sodium Chloride 100 ML .STK-MED ONE / 1549 DC 07/05 IV 07/05 1550 1549 Furosemide 40 MG X1ED STA 07/05 1522 DC 07/05 IV 07/05 1523 1540 Patient Discharge Departure Vital Signs/Condition Vital Signs First Documented: Result Date Time Pulse Ox 98 / 1300 B/P 182/120 /05 1300 B/P Mean 140 /05 1300 O2 Delivery Room air 02/04 1300 Temp 37.0 07/05 1300 Pulse 84 07/05 1300 Resp 18 /05 1300 Last Documented: Result Date Time Pulse Ox 96 02/05 1916 B/P 155/102 / 191 B/P Mean 119 / 191 O2 Delivery Room air 02/05 1916 Temp 36.9 02/05 1916 Pulse 71 02/05 1916 Resp 20 /1915 All vital signs available at the time of this entry have been reviewed. Condition Stable Clinical Impression Clinical Impression Primary Impression: Chest pain Secondary Impressions: CHF (congestive heart failure), NSTEMI (non-ST elevated myocardial infarction) Disposition Decision Transfer )( Request Time 1522 )( Request Date 02/04/21 Isac Rouse 02/07/21 1039: Patient Discharge Departure Supervising Physician Note [place] Saw Pt Alone I have reviewed the PA/MICROSTRATEGY REPORTS DEVELOPER's note and plan of care. I was available for consultation as needed at all times during the patient's visit in the emergency department. I agree with the clinical impression, plan and disposition. at 1019 RPT #: [id number] END OF REPORT [facility] 2021-02-04 15:08:00 [facility] ([facility]) EMERGENCY PROVIDER REPORT REPORT#:[id number] REPORT STATUS: Signed DATE:02/04/21 TIME:1508 PATIENT: BRYAN PARADA UNIT #: [id number] ROOM/BED: : 66 AGE: 55 SEX: M PCP PHYS: DOES_NOT KNOW SERVICE AUTHOR: Afua Engle * ALL edits or amendments must be made on the electronic/computer document * Afua Engle 02/04/21 1508: HPI-Chest Pain 40 and Over Free Text HPI Notes Free Text HPI Notes 55-year-old male presents to the by EMS for chief complaint of chest pain or shortness of breath that began at 10 PM last night. Patient states he does have a history of hypertension has not taken his medications. Patient states in October 2020 at [facility] he did receive in the pacemaker/AED. States he uses [employer] and has never had an interrogated since. Patient states he is retaining fluid bilaterally on lower extremities. Patient states he has a sit up at night to rest and to go to sleep. Denies any other symptoms or complaints. General Confirmed Patient Yes Patient Type New patient Initial Greet Date/Time 02/04/21 1257 Presentation Chief Complaint Chest pain Hx Obtained From Patient Sudden in Onset? No Onset Occurred Yesterday Symptom Duration Waxes and wanes Radiation Does not radiate. No: Abdomen, Arm R, Arm L, Back, Jaw, Neck, Shoulder R, Shoulder L, See diagram. )( Migration/Movement None Severity: Onset Moderate Severity: Current Moderate Context Immunization Status General All up to date Risk-Chest Pain 40 and Over Risk Stratification )( Coronary Artery Disease Risk factors reviewed, No risk factors )( Thoracic Aortic Dissection Risk factors reviewed, No risk factors )( Pulmonary Embolism Risk factors reviewed, No risk factors )( AMI-Aspirin Aspirin Last 24 Hrs On arrival )( HEART for MACE )( HEART for MACE Response Value History Mod index of suspicion 1 ECG Interpretation Normal ECG 0 Age Age 45 - 65 1 Risk Factors for CAD 3+ CAD risk factors 2 Troponin 1 to 3x NL troponin 1 Total 5 HEART Score for MACE 4-7 (mod risk 12%-16.6%) HEART Score Reference Resource material only. Click 'Cancel' button and information will not be inserted into or become part of the medical record Risk factors considered for determining a patient's HEART Score include: hypercholesterolemia (hyperlipidemia), hypertension, diabetes mellitus, cigarette smoking, positive family history and obesity. Major Adverse Cardiac Events (MACE) include: acute myocardial infarction, ischaemic stroke, coronary arterial occlusion and . References: Jag QUINONES, Jose Carlos SEQUEIRA, et al. Chest pain in the emergency room: value of the HEART score. [facility] Heart J. 2008 Marcell[place]:16(6):191-6. PubMed PMID: [id number]; PubMed Central PMCID: [id number]. Jose Carlos SEQUEIRA, Jag QUINONES, et al. A prospective validation of the HEART score for chest pain patients at the emergency department. Int J Cardiol. 2013 May 3:168(3):2153 -8. Doi: 10.1016/j.ijcard.2013.01.255. Epub 2012Oct 07. PubMed PMID: [id number]. Review of Systems ROS Statements All systems rev neg except as marked. Complete sys rev neg except as marked. Basic Review of Systems Basic ROS EYES: No redness, ENT: No sore throat, : No dysuria/frequency, HEM: No bleeding/bruising Focused Review of Systems Constitutional Denies: Chills, Fatigue, Fever, Lethargy, Malaise, Recent wt loss, Weakness - generalized. Respiratory Reports: Shortness of breath. Cardiovascular Reports: Chest pain. GI Denies: Abdominal pain, Anorexia, Belching, Bloody/tarry stool, Constipation, Diarrhea, Dysphagia, Hematemesis, Hematochezia, Mucousy stool, Melena, Nausea, Rectal pain, Vomiting. Musculoskeletal Denies: Back pain, Extremity pain, Extremity swelling, Joint pain, Joint swelling, Lumbar pain, Myalgia, Neck pain, Thoracic pain. Skin Denies: Abrasion, Abscess, Burn, Contusion, Diaphoresis, Erythema, Itching, Jaundice, Laceration, Rash, Swelling, Ulceration. Neurologic Denies: Abnormal movement, Bladder dysfunction, Bowel dysfunction, Change LOC, Confusion, Dizziness, Focal weakness, Generalized weakness, Headache, Lightheaded, Numbness, Problem walking, Seizure, Shaking, Slurred speech, Spinning sensation, Syncope, Tingling, Unable to speak, Vision change. Past Medical History - Adult Stated Complaint CHEST PAIN SINCE 10PM YESTERDAY Allergies Coded Allergies: No Known Allergies (11/30/20) Home Medications Active Scripts ATORVASTATIN (LIPITOR) 80 MG PO 1700 ATORVASTATIN (LIPITOR) 80 MG PO 1700 #30 TAB Prov: 01/07/21 ASPIRIN 81 MG PO DAILY ASPIRIN 81 MG PO DAILY #30 TAB Prov: 01/07/21 FUROSEMIDE (LASIX) 20 MG PO BID FUROSEMIDE (LASIX) 20 MG PO BID #60 TABS Prov: 01/07/21 LISINOPRIL (ZESTRIL) 5 MG PO DAILY LISINOPRIL (ZESTRIL) 5 MG PO DAILY #30 TABS Prov: 02/06/21 CLOPIDOGREL (PLAVIX) 75 MG PO DAILY 14 Days #14 TAB Prov: 12/05/20 Reported Medications glipiZIDE (GLUCOTROL) 5 MG PO BID SPIRONOLACTONE (ALDACTONE) 25 MG PO DAILY amLODIPine (NORVASC) 10 MG PO DAILY CARVEDILOL (COREG) 25 MG PO BID MEALS POTASSIUM BICARBONATE/CIT AC (EFFER-K 20 MEQ TABLET EFF) 20 MEQ PO DAILY cloNIDine (CATAPRES) 0.2 MG PO Q8H NITROGLYCERIN (NITROSTAT) 0.4 MG SL Q5M PRN PRN CHEST PAIN Calculated Suicide Risk (nurs) No risk Review of Nursing Notes Rev avail, and agree Pt reports no significant: Family history, Social history Past Medical History: Reports: Congestive heart failure, Hypertension. Additional Medical History Hypercholesterolemia, coronary artery disease Additional Surgical History Status post AICD/PPM Additional Family History Mother and father both with unknown cancers Smoking status: Smoking status for patients 13 years old or older: Never Smoker Physical Exam Vital Signs Vital Signs First Documented: Result Date Time Pulse Ox 98 02/04 1300 B/P 182/120 02/04 1300 B/P Mean 140 02/04 1300 O2 Delivery Room air 02/04 1300 Temp 37.0 02/04 1300 Pulse 84 02/04 1300 Resp 18 02/04 1300 Last Documented: Result Date Time Pulse Ox 96 02/05 1916 B/P 155/102 02/05 1916 B/P Mean 119 02/05 1916 O2 Delivery Room air 02/05 1916 Temp 36.9 02/05 1916 Pulse 71 02/05 1916 Resp 20 02/05 1916 Review of Vital Signs Reviewed, Vital signs normal Basic Physical Exam Basic PE HEAD: Atraumatic/NC, EYES: PERRL, conj clear, ENT: Membranes moist, NECK: Supple, EXT: No gross abnormality, SKIN: No rashes, warm/dry, NEURO: alert oriented, NEURO: gross movement NL, PSYCH: NL thought content Focused PE General/Const General/Const Awake, Alert, No acute distress MS Neck Neck Atraumatic, Supple, No meningismus, Full range of motion Resp/Chest Respiratory/Chest Atraumatic, Breath sounds NL, Breath sounds = bilat, No respiratory distress Cardiovascular Cardiovascular Heart rate NL, Regular rhythm, Heart sounds NL, No murmurs, Cap refill not delayed, Peripheral circulation NL Abdomen/GI Abdomen/GI Atraumatic, Soft, Non-tender, McBurney's non-tender MS Back Back Atraumatic, Inspection NL, Full range of motion, Painless range of motion MS Lower Extrem Lower Ext/Pelvis/MS Atraumatic, Inspection NL, Full range of motion, No swelling Interpretation Diagnostics Lab Results Interpretation Results Laboratory Tests 02/04/21 1314: [Embedded Image Not Available] Laboratory Tests: 02/04 1701 Toxicology Urine Opiates Screen (<2000 NG/ML SCcutoff) NEGATIVE Urine Methadone Screen (<300 NG/ML SCcutoff) NEGATIVE Urine Barbiturates (<200 NG/ML SCcutoff) NEGATIVE Ur Phencyclidine Scrn (<25 NG/ML SCcutoff) NEGATIVE Ur Amphetamines Screen (<1000 NG/ML SCcutoff) NEGATIVE U Benzodiazepines Scrn (<200 NG/ML SCcutoff) NEGATIVE Urine Cocaine Screen (<300 NG/ML SCcutoff) POSITIVE H Urine Cannabinoids (<50 NG/ML SCcutoff) NEGATIVE Urines Urine Color (YEL/STRAW discript) YELLOW Urine Appearance (CLEAR discript) CLEAR Urine pH (5.0 - 7.0 pH UNITS) 5.5 Ur Specific [place] (1.005 - 1.030 SG) 1.015 Urine Protein (NEG mg/dL) 1+ H Urine Glucose (UA) (NEG mg/dL) NEGATIVE Urine Ketones (NEG mg/dL) NEGATIVE Urine Blood (NEG mg/DL) NEGATIVE Urine Nitrite (NEG SCREEN) NEGATIVE Urine Bilirubin (NEG mg/dL) NEGATIVE Urine Urobilinogen (<2.0 mg/dL) 0.2 Ur Leukocyte Esterase (NEGATIVE Leuk/mcL) NEGATIVE Urine RBC (0 - 3 #RBC/HPF) NONE SEEN Urine WBC (0 - 3 #WBC/HPF) 1-3 Ur Squamous Epith Cells (NONE /HPF) TRACE Urine Bacteria (NONE - TRACE /HPF) TRACE Urine Culture Screen (Culture CHK Criteria) NO, WBC<10 07/05 1314 Chemistry Sodium (134 - 147 mmol/L) 139 Potassium (3.4 - 5.0 mmol/L) 4.5 Chloride (100 - 108 mmol/L) 109 H Carbon Dioxide (21 - 32 mmol/L) 26 Anion Gap (4.0 - 15.0 GAP calc) 4.0 BUN (7 - 18 MG/DL) 25 H Creatinine (0.8 - 1.3 MG/DL) 1.3 Glomerular Filtr Rate (>60 estGFR) >=60 max estimate Glucose (70 - 110 MG/DL) 102 Calcium (8.5 - 10.1 MG/DL) 8.9 Total Creatine Kinase (26 - 192 Unit/L) 776 H Troponin I (0.000 - 0.045 NG/ML) 0.089 *H Coagulation D-Dimer (215 - 500 ng/mLFEU) 979 *H Hematology WBC (3.5 - 11.0 K/mm3) 6.0 RBC (4.70 - 6.10 M/mm3) 5.80 Hgb (12.3 - 15.9 G/DL) 14.5 Hct (35.8 - 46.7 %) 47.2 H MCV (86.3 - 98.9 Fl) 81.4 L MCH (28.9 - 34.4 pg) 25.0 L MCHC (32.1 - 34.5 G/DL) 30.7 L RDW (11.5 - 14.5 SD) 17.5 H Plt Count (150 - 450 K/mm3) 230 MPV (7.0 - 9.6 fL) 10.90 H Serology SARS-CoV-2 Ag (Rapid) (Negative) NEGATIVE Recent Impressions: RADIOLOGY - XR CHEST 1 V 02/04 1320 Report Impression - Status: SIGNED Entered: 02/04/2021 1347 IMPRESSION: 1. Mild cardiomegaly and central venous congestion, without acute decompensation. Impression By: [email or web address] Ye Scott M.D. CAT SCAN - CTA CHEST FOR PE 02/04 1530 Report Impression - Status: SIGNED Entered: 02/04/2021 1615 IMPRESSION: 1. No pulmonary embolism. No acute findings throughout the lungs. 2. Borderline dilated heart chambers. Impression By: [email or web address] - Luis Rogers D.O. Point of Care Testing Pulse Oximetry Pulse Ox % 98 On: Room air Interpretation Interpreted by me, Pulse oximetry normal Time 1300 Re-Evaluation MDM Free Text MDM Notes Free Text MDM Notes Dr. Daniel accepted patient. ED Course Medication(s) Ordered Medication(s) Ordered: Blood Formation,Coagulation Sig/Mira Start time Last Medication Dose Route Stop Time Status Admin Enoxaparin Sodium 127.2728 MG X1ED STA 02/04 1510 DC 02/04 SUBQ 02/04 1511 1539 Cardiovascular Drugs Sig/Mira Start time Last Medication Dose Route Stop Time Status Admin Hydralazine HCl 10 MG X1ED STA 02/04 1723 DC 07/ IV 07/ 1724 1737 Central Nervous System Agents Sig/Mira Start time Last Medication Dose Route Stop Time Status Admin Morphine Sulfate 2 MG X1ED STA 02/04 1723 DC 07/05 IV 07/05 1724 1738 Aspirin 324 MG X1ED STA 02/04 1302 DC 07/ PO 02/04 1303 1315 Morphine Sulfate 4 MG X1ED STA 02/04 1302 DC 07/05 IV 07/ 1303 1315 Diagnostic Agents Sig/Mira Start time Last Medication Dose Route Stop Time Status Admin Iopamidol 0 .STK-MED ONE 02/04 1523 DC 02/04 .ROUTE 1548 Electrolytic, Caloric, And Winston Sig/Mira Start time Last Medication Dose Route Stop Time Status Admin Sodium Chloride 100 ML .STK-MED ONE 02/04 1549 DC / IV 02/04 1550 1549 Furosemide 40 MG X1ED STA 02/04 1522 DC / IV 02/04 1523 1540 Patient Discharge Departure Vital Signs/Condition Vital Signs First Documented: Result Date Time Pulse Ox 98 02/04 1300 B/P 182/120 02/04 1300 B/P Mean 140 02/04 1300 O2 Delivery Room air 02/04 1300 Temp 37.0 02/04 1300 Pulse 84 / 1300 Resp 18 02/04 1300 Last Documented: Result Date Time Pulse Ox 96 02/04 191 B/P 155/102 02/04 191 B/P Mean 119 02/04 191 O2 Delivery Room air 02/05 1916 Temp 36.9 02/05 1916 Pulse 71 02/04 191 Resp 20 02/04 191 All vital signs available at the time of this entry have been reviewed. Condition Stable Clinical Impression Clinical Impression Primary Impression: Chest pain Secondary Impressions: CHF (congestive heart failure), NSTEMI (non-ST elevated myocardial infarction) Disposition Decision Transfer )( Request Time 1522 )( Request Date 02/04/21 Isac Rouse 02/07/21 1039: Patient Discharge Departure Supervising Physician Note [place] Saw Pt Alone I have reviewed the PA/MICROSTRATEGY REPORTS DEVELOPER's note and plan of care. I was available for consultation as needed at all times during the patient's visit in the emergency department. I agree with the clinical impression, plan and disposition. at 1019 at 1039 [facility] #: [id number] END OF REPORT [facility] 2021-01-07 12:14:00 [facility] ([facility]) Pulmonology Progress Note REPORT#:[id number] REPORT STATUS: Signed DATE:01/07/21 TIME:1214 PATIENT: BRYAN PARADA UNIT #: [id number] ROOM/BED: [place] [id number] : [birth year] AGE: 55 SEX: M ATTEND: Yared Scott MD ADM AUTHOR: Rolando Napier * ALL edits or amendments must be made on the electronic/computer document * Subjective Chief Complaint: Comfortable on RA Up to chair No distress Review of Systems ROS Constitutional: Denies: chills, fever. Respiratory: Denies: pleuritic pain. Cardiovascular: Denies: chest pain. GI: Denies: abdominal pain. Objective General VS/I O: Last Documented: Result Date Time Pulse Ox 97 01/07 1150 B/P 126/75 01/07 1150 B/P Mean 92.0 01/07 1150 Temp 36.5 01/07 1150 Pulse 82 01/07 1150 Resp 16 01/07 1150 FiO2 21 01/07 0844 O2 Delivery Room air 01/07 0844 O2 Flow Rate 2 01/04 0400 PATIENT WEIGHT: Weight (lb): 326 Weight (oz): 4.55 Weight (kg): 147.871 Medications: Active Meds + DC'd Last 24 Hrs Carvedilol 25 MG BID MEALS PO Amlodipine Besylate 10 MG DAILY PO Clopidogrel Bisulfate 75 MG DAILY PO Spironolactone 25 MG DAILY PO Nitroglycerin 0.4 MG Q5M PRN PRN SL Ondansetron HCl 4 MG Q4H PRN PRN IV Iopamidol 100 ML ONCE PRN IV Furosemide 20 MG BID IV Aspirin 81 MG DAILY PO Diphenhydramine HCl 25 MG Q6H PRN PRN PO Insulin Human Lispro S/SCALE MED AC HS SUBQ Dextrose/Water 50 ML ASDIR PRN IV (CKD) Pneumococcal Polyvalent Vaccine 0.5 ML AT DISCHG IM Atorvastatin Calcium 80 MG 1700 PO Acetaminophen 650 MG Q6H PRN PRN PO Acetaminophen 650 MG Q6H PRN PRN RECTAL Albumin Human 3 ML ONCE PRN IV Bisacodyl 10 MG DAILY PRN PRN RECTAL Docusate Sodium 100 MG BID PRN PRN PO Hydralazine HCl 10 MG Q6H PRN PRN IV Labetalol HCl 10 MG ASDIR PRN IV Nicardipine HCl 25 MG ASDIR PRN IV Sodium Chloride 250 ML Physical Exam Head/eyes: atraumatic, normocephalic, PERRLA Neck: full range of motion Cardiovascular: normal heart sounds, normal S1/S2, no murmur, no rub Respiratory/chest: aerating well, symmetric expansion, no distress Abdomen: soft, non-tender, normal bowel sounds Genitourinary: no brown 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 Impression By: Nataliya - Vernon Garibay M.D. Diagnosis, Assessment Plan Free Text A P: Assessment CVA Possible CHF EF less than 25% status post AICD decompensated CKD Hypertension CAD Plan S/P TPA Neuro status overall improved Hemodynamically stable CXR reviewed with stable infiltrates; On lasix 20 mg BID, spironolactone Comfortable on room air Monitor renal function On aspirin DVT prophylaxis SCDs PT/OT Ok for discharge from pulmonary standpoint on maintenance diuretics at 1233 RPT #: [id number] END OF REPORT [facility] 2021-01-07 12:14:00 [facility] ([facility]) Pulmonology Progress Note REPORT#:[id number] REPORT STATUS: Signed DATE:01/07/21 TIME:1214 PATIENT: BRYAN PARADA UNIT #: [id number] ROOM/BED: [place] [address] : 66 AGE: 55 SEX: M ATTEND: Yared Scott MD ADM AUTHOR: Rolando Napier * ALL edits or amendments must be made on the electronic/computer document * Rolando Napier 01/07/21 1214: Subjective Chief Complaint: Comfortable on RA Up to chair No distress Review of Systems ROS Constitutional: Denies: chills, fever. Respiratory: Denies: pleuritic pain. Cardiovascular: Denies: chest pain. GI: Denies: abdominal pain. Objective General VS/I O: Last Documented: Result Date Time Pulse Ox 97 01/07 1150 B/P 126/75 01/07 1150 B/P Mean 92.0 01/07 1150 Temp 36.5 01/07 1150 Pulse 82 01/07 1150 Resp 16 01/07 115 FiO2 21 01/07 0844 O2 Delivery Room air 01/07 08 O2 Flow Rate 2 01/04 0400 PATIENT WEIGHT: Weight (lb): 326 Weight (oz): 4.55 Weight (kg): 147.871 Medications: Active Meds + DC'd Last 24 Hrs Carvedilol 25 MG BID MEALS PO Amlodipine Besylate 10 MG DAILY PO Clopidogrel Bisulfate 75 MG DAILY PO Spironolactone 25 MG DAILY PO Nitroglycerin 0.4 MG Q5M PRN PRN SL Ondansetron HCl 4 MG Q4H PRN PRN IV Iopamidol 100 ML ONCE PRN IV Furosemide 20 MG BID IV Aspirin 81 MG DAILY PO Diphenhydramine HCl 25 MG Q6H PRN PRN PO Insulin Human Lispro S/SCALE MED AC HS SUBQ Dextrose/Water 50 ML ASDIR PRN IV (CKD) Pneumococcal Polyvalent Vaccine 0.5 ML AT DISCHG IM Atorvastatin Calcium 80 MG 1700 PO Acetaminophen 650 MG Q6H PRN PRN PO Acetaminophen 650 MG Q6H PRN PRN RECTAL Albumin Human 3 ML ONCE PRN IV Bisacodyl 10 MG DAILY PRN PRN RECTAL Docusate Sodium 100 MG BID PRN PRN PO Hydralazine HCl 10 MG Q6H PRN PRN IV Labetalol HCl 10 MG ASDIR PRN IV Nicardipine HCl 25 MG ASDIR PRN IV Sodium Chloride 250 ML Physical Exam Head/eyes: atraumatic, normocephalic, PERRLA Neck: full range of motion Cardiovascular: normal heart sounds, normal S1/S2, no murmur, no rub Respiratory/chest: aerating well, symmetric expansion, no distress Abdomen: soft, non-tender, normal bowel sounds Genitourinary: no brown 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 Impression By: [email or web address] - Vernon Garibay M.D. Diagnosis, Assessment Plan Free Text A P: Assessment CVA Possible CHF EF less than 25% status post AICD decompensated CKD Hypertension CAD Plan S/P TPA Neuro status overall improved Hemodynamically stable CXR reviewed with stable infiltrates; On lasix 20 mg BID, spironolactone Comfortable on room air Monitor renal function On aspirin DVT prophylaxis SCDs PT/OT Ok for discharge from pulmonary standpoint on maintenance diuretics OllieromelÁlvaro 01/07/21 2334: Diagnosis, Assessment Plan Free Text A P: Seen ,examined , agree with MICROSTRATEGY REPORTS DEVELOPER at 1233 RPT #: [id number] END OF REPORT [facility] 2021-01-07 12:14:00 [facility]) Pulmonology Progress Note REPORT#:[id number] REPORT STATUS: Signed DATE:01/07/21 TIME:1214 PATIENT: BRYAN PARADA UNIT #: [id number] ROOM/BED: [place] [address] : 67 AGE: 55 SEX: M ATTEND: Yared Scott MD ADM AUTHOR: Rolando Napier * ALL edits or amendments must be made on the electronic/computer document * Rolando Napier 01/07/21 1214: Subjective Chief Complaint: Comfortable on RA Up to chair No distress Review of Systems ROS Constitutional: Denies: chills, fever. Respiratory: Denies: pleuritic pain. Cardiovascular: Denies: chest pain. GI: Denies: abdominal pain. Objective General VS/I O: Last Documented: Result Date Time Pulse Ox 97 01/07 1150 B/P 126/75 01/07 1150 B/P Mean 92.0 01/07 1150 Temp 36.5 01/07 1150 Pulse 82 01/07 1150 Resp 16 01/07 1150 FiO2 21 01/07 0844 O2 Delivery Room air 01/07 0844 O2 Flow Rate 2 01/04 0400 PATIENT WEIGHT: Weight (lb): 326 Weight (oz): 4.55 Weight (kg): 147.871 Medications: Active Meds + DC'd Last 24 Hrs Carvedilol 25 MG BID MEALS PO Amlodipine Besylate 10 MG DAILY PO Clopidogrel Bisulfate 75 MG DAILY PO Spironolactone 25 MG DAILY PO Nitroglycerin 0.4 MG Q5M PRN PRN SL Ondansetron HCl 4 MG Q4H PRN PRN IV Iopamidol 100 ML ONCE PRN IV Furosemide 20 MG BID IV Aspirin 81 MG DAILY PO Diphenhydramine HCl 25 MG Q6H PRN PRN PO Insulin Human Lispro S/SCALE MED AC HS SUBQ Dextrose/Water 50 ML ASDIR PRN IV (CKD) Pneumococcal Polyvalent Vaccine 0.5 ML AT DISCHG IM Atorvastatin Calcium 80 MG 1700 PO Acetaminophen 650 MG Q6H PRN PRN PO Acetaminophen 650 MG Q6H PRN PRN RECTAL Albumin Human 3 ML ONCE PRN IV Bisacodyl 10 MG DAILY PRN PRN RECTAL Docusate Sodium 100 MG BID PRN PRN PO Hydralazine HCl 10 MG Q6H PRN PRN IV Labetalol HCl 10 MG ASDIR PRN IV Nicardipine HCl 25 MG ASDIR PRN IV Sodium Chloride 250 ML Physical Exam Head/eyes: atraumatic, normocephalic, PERRLA Neck: full range of motion Cardiovascular: normal heart sounds, normal S1/S2, no murmur, no rub Respiratory/chest: aerating well, symmetric expansion, no distress Abdomen: soft, non-tender, normal bowel sounds Genitourinary: no brown 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 Impression By: [email or web address] - Vernon Garibay M.D. Diagnosis, Assessment Plan Free Text A P: Assessment CVA Possible CHF EF less than 25% status post AICD decompensated CKD Hypertension CAD Plan S/P TPA Neuro status overall improved Hemodynamically stable CXR reviewed with stable infiltrates; On lasix 20 mg BID, spironolactone Comfortable on room air Monitor renal function On aspirin DVT prophylaxis SCDs PT/OT Ok for discharge from pulmonary standpoint on maintenance diuretics Álvaro Becerra 01/07/21 2334: Diagnosis, Assessment Plan Free Text A P: Seen ,examined , agree with [employer] REPORTS DEVELOPER at 1233 at 2334 RPT #: [id number] END OF REPORT [facility] 2021-01-06 16:51:00 [facility] Neurology Progress Note REPORT#:[id number] REPORT STATUS: Signed DATE:01/06/21 TIME:165 PATIENT: BRYAN PARADA UNIT #: [id number] ROOM/BED: [place] [address] : 67 AGE: 55 SEX: M ATTEND: Yared Scott MD ADM AUTHOR: Anabela Le MD * ALL edits or amendments must be made on the electronic/computer document * Subjective Chief Complaint: Stroke HPI: Overnight events noted. Objective General VS: Last Documented: Result Date Time Pulse Ox 97 01/07 1150 B/P 126/75 01/07 1150 B/P Mean 92.0 01/07 1150 Temp 97.7 01/07 1150 Pulse 82 01/07 1150 Resp 16 01/07 1150 FiO2 21 01/07 0844 O2 Delivery Room air 01/07 0844 O2 Flow Rate 2 01/04 0400 PATIENT WEIGHT: Weight (lb): 326 Weight (oz): 4.55 Weight (kg): 147.871 Medications Current Home Medications glipiZIDE (GLUCOTROL) 5 MG PO BID SPIRONOLACTONE (ALDACTONE) 25 MG PO DAILY amLODIPine (NORVASC) 10 MG PO DAILY CARVEDILOL (COREG) 25 MG PO BID MEALS POTASSIUM BICARBONATE/CIT AC (EFFER-K 20 MEQ TABLET EFF) 20 MEQ PO DAILY cloNIDine (CATAPRES) 0.2 MG PO Q8H NITROGLYCERIN (NITROSTAT) 0.4 MG SL Q5M PRN PRN CHEST PAIN ATORVASTATIN (LIPITOR) 80 MG PO 1700 ASPIRIN 81 MG PO DAILY FUROSEMIDE (LASIX) 20 MG PO BID LISINOPRIL (ZESTRIL) 5 MG PO DAILY CLOPIDOGREL (PLAVIX) 75 MG PO DAILY Physical Exam General appearance: awake Mental Status Orientation: Yes: to time, to place, to person, to situation. Reflexes Plantar reflexes: Up: Left. Down: Right. Treatment Prophylaxis IV Thrombolytic Therapy Inclusion criteria: Dx of ischemic CVA, Measurable neuro deficit, Age >= 18, Onset < 3 hr before Tx, Baseline CT neg for hem Exclusion criteria: No exclusions Diagnosis, Assessment Plan Free Text A P: acute embolic stroke, likely of cardiac origin s/p TPA with marked improvement uncontrolled HTN controlled DM obesity Keep BP in the high normal range suportive care otherwise consider anticoagulation once out of the acute stage 01/04 improving. for anticoagulation before discharge 01/06: No further neuro changes. Supportive care. at 0633 RPT #: [id number] END OF REPORT [facility] 2021-01-06 09:13:00 [facility] ([facility]) Hospitalist Progress Note REPORT#:[id number] REPORT STATUS: Signed DATE:01/06/21 TIME:912 PATIENT: BRYAN PARADA UNIT #: [id number] ROOM/BED: [place] [address] : 67 AGE: 55 SEX: M ATTEND: Yared Scott MD ADM AUTHOR: Yared Scott MD * ALL edits or amendments must be made on the electronic/computer document * Subjective Chief Complaint: Feeling better No acute events Objective General VS/I O: Vital Signs: Date Time Temp Pulse Resp B/P B/P Pulse O2 O2 Flow FiO2 Mean Ox Delivery Rate 01/06 1020 97 Room air 21 01/06 1000 88 20 150/99 120 94 01/06 0900 90 20 149/93 115 94 01/06 0800 Room air 01/06 0732 98.2 01/06 0700 83 33 161/106 128 95 06/06 0624 88 14 96 06/06 0600 80 15 154/94 119 94 06/06 0500 82 17 152/99 118 93 06/06 0400 90 24 153/93 116 98 06/06 0339 99.0 06/06 0338 102 24 164/106 128 96 06/06 0301 92 22 129 96 06/06 0200 94 0 143/86 107 92 06/06 0130 55 25 138/65 94 100 06/06 0115 64 27 155/71 102 98 06/06 0101 86 16 95 06/06 0101 63 154/87 115 98 06/06 0100 59 30 160/72 104 99 06/06 0051 81 43 163/76 109 99 06/06 0019 98.4 06/06 0000 91 19 169/98 126 96 06/05 2311 86 18 170/100 129 97 06/05 2258 83 19 171/110 136 96 06/05 2200 80 20 158/114 131 92 06/05 1953 77 19 97 06/05 1949 97.9 06/05 1935 98 Room air 21 06/05 1900 91 27 98 06/05 1800 99 20 166/98 122 94 06/05 1606 91 15 162/100 125 98 06/05 1600 86 20 175/106 134 95 06/05 1518 98.1 06/05 1500 Room air 06/05 1450 92 22 161/89 118 97 06/05 1301 98 20 161/91 119 97 06/05 1200 92 25 153/90 115 95 24 hour I O ending at 0700: 06/06 0700 06/05 1900 Intake Total 500 1000 Output Total 700 2900 Balance -200 -1900 Intake, Oral 500 1000 Number Voids 5 Output, Urine 700 2900 PATIENT WEIGHT: Weight (lb): 326 Weight (oz): 4.55 Weight (kg): 147.871 Medications: Active Meds + DC'd Last 24 Hrs Carvedilol 25 MG BID MEALS PO Amlodipine Besylate 10 MG DAILY PO Clopidogrel Bisulfate 75 MG DAILY PO Spironolactone 25 MG DAILY PO Nitroglycerin 0.4 MG Q5M PRN PRN SL Ondansetron HCl 4 MG Q4H PRN PRN IV Iopamidol 100 ML ONCE PRN IV Sodium Chloride 100 ML ONCE PRN IV (DC) Famotidine 20 MG Q12HR PO (DC) Furosemide 20 MG BID IV Aspirin 81 MG DAILY PO Diphenhydramine HCl 25 MG Q6H PRN PRN PO Insulin Human Lispro S/SCALE MED AC HS SUBQ Dextrose/Water 50 ML ASDIR PRN IV (CKD) Pneumococcal Polyvalent Vaccine 0.5 ML AT DISCHG IM Atorvastatin Calcium 80 MG 1700 PO Mupirocin 1 APPLIC BID NASAL (DC) Acetaminophen 650 MG Q6H PRN PRN PO Acetaminophen 650 MG Q6H PRN PRN RECTAL Albumin Human 3 ML ONCE PRN IV Bisacodyl 10 MG DAILY PRN PRN RECTAL Docusate Sodium 100 MG BID PRN PRN PO Hydralazine HCl 10 MG Q6H PRN PRN IV Labetalol HCl 10 MG ASDIR PRN IV Nicardipine HCl 25 MG ASDIR PRN IV Sodium Chloride 250 ML Physical Exam General appearance: alert, awake Head/Eyes: atraumatic, normocephalic ENT: moist mucosal membranes Neck: supple/no meningismus Cardiovascular: normal heart sounds, regular rate rhythm Respiratory: aerating well, symmetric expansion Abdomen: soft, no distention Genitourinary: no bladder distention Rectal: deferred Extremities: decreased range of motion, no edema Musculoskeletal: decreased ROM 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: left hemiparesis, alert, oriented X 3 Skin: dry, no rash Lymphatics: no lymphadenopathy Psychiatry: anxious Results Findings/Data: Laboratory Tests 01/06 01/05 01/05 01/05 0733 2021 1518 1200 Chemistry Sodium (134 - 147 mmol/L) 139 Potassium (3.4 - 5.0 mmol/L) 3.6 Chloride (100 - 108 mmol/L) 107 Carbon Dioxide (21 - 32 mmol/L) 23 Anion Gap (4.0 - 15.0 GAP calc) 9.0 BUN (7 - 18 MG/DL) 16 Creatinine (0.8 - 1.3 MG/DL) 1.1 Glomerular Filtr Rate (>60 estGFR) >=60 max estimate Glucose (70 - 110 MG/DL) 98 POC Glucose (70 - 110 mg/dL) 102 98 102 Calcium (8.5 - 10.1 MG/DL) 9.0 Laboratory Tests 01/05 1200 Coagulation INR (0.8 - 1.2 INR Unit) 1.08 PTT (Cloud) (26 - 35 SECONDS) 33.0 PT Patient/Control Mix (9.3 - 12.9 SECONDS) 12.1 Laboratory Tests 01/05 1200 Hematology WBC (3.5 - 11.0 K/mm3) 5.3 RBC (4.70 - 6.10 M/mm3) 6.41 H Hgb (12.3 - 15.9 G/DL) 16.1 H Hct (35.8 - 46.7 %) 50.7 H MCV (86.3 - 98.9 Fl) 79.1 L MCH (28.9 - 34.4 pg) 25.1 L MCHC (32.1 - 34.5 G/DL) 31.8 L RDW (11.5 - 14.5 SD) 17.8 H Plt Count (150 - 450 K/mm3) 234 MPV (7.0 - 9.6 fL) 10.30 H Neut % (Auto) (40 - 76 %) 52.6 Lymph % (Auto) (20.5 - 51.1 %) 32.3 [place] % (Auto) (1.7 - 9.3 %) 12.0 H Eos % (Auto) (0.0 - 6.0 %) 2.7 Baso % (Auto) (0.0 - 2.0 %) 0.2 Neut # (Auto) (1.8 - 7.6 K/mm3) 2.8 Lymph # (Auto) (0.6 - 3.0 K/mm3) 1.7 [place] # (Auto) (0.2 - 1.5 K/mm3) 0.6 Eos # (Auto) (0.0 - 0.4 K/mm3) 0.1 Baso # (Auto) (0.0 - 0.2 K/mm3) 0.0 Abs Immat Gran (auto) (0.00 - 0.03 x10 3/uL) 0.01 Add Manual Diff (CRITERIA DIFF/SCN) NO Immature Gran % (0.0 - 5.0 %) 0.2 Nucleated RBC % (0.0 - 1.0 /100WBC%) 0.0 Radiology data: Recent Impressions: CAT SCAN - CT ANGIO HEAD 01/05 1325 Report Impression - Status: SIGNED Entered: 01/05/2021 1410 IMPRESSION: CTA neck 1. No stenosis, occlusion [...] and P2 segments): Patent. No significant abnormality. Posterior communicating arteries: Not visualized Distal cerebral [...] parenchymal or leptomeningeal enhancement is present. The herzog-white differentiation is maintained without evidence for acute [...] part artifactual although further vasculopathy is considered. Impression By: Tima Paez M.D. CAT SCAN - CT ANGIO NECK 01/05 1330 Report Impression - Status: SIGNED Entered: 01/05/2021 1410 IMPRESSION: CTA neck 1. No stenosis, occlusion [...] and P2 segments): Patent. No significant abnormality. Posterior communicating arteries: Not visualized Distal cerebral [...] parenchymal or leptomeningeal enhancement is present. The herzog-white differentiation is maintained without evidence for acute [...] part artifactual although further vasculopathy is considered. Impression By: Tima Paez M.D. Diagnosis, Assessment Plan Problem List/A P: 1. Acute CVA (cerebrovascular accident) Free Text DxA P Notes Free text DxA P notes: Acute CVA with left-sided weakness Accelerated hypertension Acute kidney injury on chronic systolic CHF with EF less than 20% status post AICD Chronic kidney disease stage II History of CAD Plan Monitor under telemetry Neuro vital signs CT showed no acute changes CTA findings noted Status post TPA We will admit to ICU Neurology consulted We will get a MRI of the brain Permissible hypertension We will monitor renal parameters Electrolytes monitor and replace accordingly Continue home medications and titrate as needed We will get an echocardiogram GI/DVT prophylaxis Advanced directive full code discussed with the patient Total critical care time used was more than 30 minutes 01/04/2021 Monitor closely under telemetry Status post TPA Could not do an MRI because of the pacemaker We will downgrade to telemetry Start on PT OT and ST Echo awaited Electrolytes monitor and replace accordingly Renal parameters monitored Appreciate help from consultants Total critical care time used was more than 30 minutes 01/05/2021 Monitor under telemetry antihypertensives titrated Appreciate help from neurology Electrolytes monitor and replace accordingly We will monitor renal parameters PT eval appreciated Possible DC home with home health on Thursday01/06/2021 Code stroke was called yesterday because of the worsening of weakness on the right side CT CTA was not showing any acute changes Appreciate help from neurology Continue antiplatelets Antihypertensives titrated PT eval appreciated Possible DC home with home health in AM at 1151 RPT #: [id number] END OF REPORT [facility] 2021-01-05 11:47:00 [facility] Hospitalist Progress Note REPORT#:[id number] REPORT STATUS: Signed DATE:01/05/21 TIME:1147 PATIENT: BRYAN PARADA UNIT #: [id number] ROOM/BED: [place] [address] : 67 AGE: 55 SEX: M ATTEND: Yared Scott MD ADM AUTHOR: Yared Scott MD * ALL edits or amendments must be made on the electronic/computer document * Subjective Chief Complaint: Feeling better No acute events Objective General VS/I O: Vital Signs: Date Time Temp Pulse Resp B/P B/P Pulse O2 O2 Flow FiO2 Mean Ox Delivery Rate 01/05 1124 103 24 177/108 136 98 06/05 1120 98 29 165/100 124 94 06/05 0919 92 23 183/108 139 96 06/05 0917 181/114 142 06/05 0904 94 25 155/91 117 98 06/05 0900 91 24 174/100 131 96 06/05 0819 95 26 164/111 129 96 06/05 0755 96 Room air 21 06/05 0732 98.1 06/05 0701 86 20 178/107 135 96 06/05 0700 Room air 06/05 0618 173/114 135 06/05 0601 89 21 186/112 139 96 06/05 0501 90 11 138/79 100 95 06/05 0400 84 20 161/96 123 96 06/05 0345 98.1 06/05 0308 80 06/05 0308 26 171/97 125 97 06/05 0200 76 06/05 0200 154/90 118 99 06/05 0101 78 06/05 0101 16 161/87 115 99 06/05 0000 86 06/05 0000 98.0 06/05 0000 20 184/108 138 99 06/04 2308 81 22 184/112 143 97 06/04 2307 77 19 183/115 143 97 06/04 2306 77 20 179/113 139 97 06/04 2304 77 19 170/112 134 98 06/04 2302 79 16 166/104 130 98 06/04 2300 76 17 172/110 137 95 06/04 2259 74 22 176/110 138 96 06/04 2258 74 22 177/110 138 97 06/04 2256 97.7 06/04 2200 87 27 169/107 133 97 06/04 2100 83 27 168/112 135 95 06/04 2034 98.7 06/04 1999 82 25 156/98 121 95 06/04 1957 97 Room air 21 06/04 1900 83 24 130 94 06/04 1806 81 143/94 114 96 06/04 1608 90 24 160/101 124 06/04 1600 80 21 159/103 127 06/04 1527 98.6 24 hour I O ending at 0700: 06/05 0700 06/04 1900 Intake Total 1050 500 Output Total 1900 400 Balance -850 100 Intake, Oral 1050 500 Output, Urine 1900 400 Patient 326 lb Weight PATIENT WEIGHT: Weight (lb): 326 Weight (oz): 4.55 Weight (kg): 147.871 Medications: Active Meds + DC'd Last 24 Hrs Famotidine 20 MG Q12HR PO Furosemide 20 MG BID IV Aspirin 81 MG DAILY PO Diphenhydramine HCl 25 MG Q6H PRN PRN PO Famotidine 20 MG Q12HR IV (DC) Insulin Human Lispro S/SCALE MED AC HS SUBQ Dextrose/Water 50 ML ASDIR PRN IV (CKD) Pneumococcal Polyvalent Vaccine 0.5 ML AT DISCHG IM Atorvastatin Calcium 80 MG 1700 PO Mupirocin 1 APPLIC BID NASAL Acetaminophen 650 MG Q6H PRN PRN PO Acetaminophen 650 MG Q6H PRN PRN RECTAL Albumin Human 3 ML ONCE PRN IV Bisacodyl 10 MG DAILY PRN PRN RECTAL Docusate Sodium 100 MG BID PRN PRN PO Hydralazine HCl 10 MG Q6H PRN PRN IV Labetalol HCl 10 MG ASDIR PRN IV Nicardipine HCl 25 MG ASDIR PRN IV Sodium Chloride 250 ML Physical Exam General appearance: alert, awake Head/Eyes: atraumatic, normocephalic ENT: moist mucosal membranes Neck: supple/no meningismus Cardiovascular: normal heart sounds, regular rate rhythm Respiratory: aerating well, symmetric expansion Abdomen: soft, no distention Genitourinary: no bladder distention Rectal: deferred Extremities: decreased range of motion, no edema Musculoskeletal: decreased ROM 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 Acute CVA (cerebrovascular accident) Free Text DxA P Notes Free text DxA P notes: Acute CVA with left-sided weakness Accelerated hypertension Acute kidney injury on chronic systolic CHF with EF less than 20% status post AICD Chronic kidney disease stage II History of CAD Plan Monitor under telemetry Neuro vital signs CT showed no acute changes CTA findings noted Status post TPA We will admit to ICU Neurology consulted We will get a MRI of the brain Permissible hypertension We will monitor renal parameters Electrolytes monitor and replace accordingly Continue home medications and titrate as needed We will get an echocardiogram GI/DVT prophylaxis Advanced directive full code discussed with the patient Total critical care time used was more than 30 minutes 01/04/2021 Monitor closely under telemetry Status post TPA Could not do an MRI because of the pacemaker We will downgrade to telemetry Start on PT OT and ST Echo awaited Electrolytes monitor and replace accordingly Renal parameters monitored Appreciate help from consultants Total critical care time used was more than 30 minutes 01/05/2021 Monitor under telemetry antihypertensives titrated Appreciate help from neurology Electrolytes monitor and replace accordingly We will monitor renal parameters PT eval appreciated Possible DC home with home health on Thursday01/05/2021 11:40 AM Patient had weakness on the left side acutely and a code stroke was called and CT was ordered at 1151 RPT #: [id number] END OF REPORT [facility] 2021-01-05 07:29:00 [facility] ([facility]) Neurology Progress Note REPORT#:[id number] REPORT STATUS: Signed DATE:01/05/21 TIME:728 PATIENT: BRYAN PARADA UNIT #: [id number] ROOM/BED: [place] [address] : 67 AGE: 55 SEX: M ATTEND: Yared Scott MD ADM AUTHOR: Fran Mann MD * ALL edits or amendments must be made on the electronic/computer document * Subjective Patient reports: Yes: feeling better. Objective General VS: Last Documented: Result Date Time B/P 173/114 01/05 618 B/P Mean 135 01/05 618 Pulse Ox 96 01/05 601 Pulse 89 01/05 601 Resp 21 01/05 601 Temp 36.7 01/05 0345 FiO2 21 01/04 1957 O2 Delivery Room air 01/04 1957 O2 Flow Rate 2 01/04 0400 PATIENT WEIGHT: Weight (lb): 326 Weight (oz): 4.55 Weight (kg): 147.871 Medications Current Home Medications glipiZIDE (GLUCOTROL) 5 MG PO BID SPIRONOLACTONE (ALDACTONE) 25 MG PO DAILY amLODIPine (NORVASC) 10 MG PO DAILY CARVEDILOL (COREG) 25 MG PO BID MEALS POTASSIUM BICARBONATE/CIT AC (EFFER-K 20 MEQ TABLET EFF) 20 MEQ PO DAILY cloNIDine (CATAPRES) 0.2 MG PO Q8H NITROGLYCERIN (NITROSTAT) 0.4 MG SL Q5M PRN PRN CHEST PAIN CLOPIDOGREL (PLAVIX) 75 MG PO DAILY Active Meds + DC'd Last 24 Hrs Famotidine 20 MG Q12HR PO Furosemide 20 MG BID IV Aspirin 81 MG DAILY PO Diphenhydramine HCl 25 MG Q6H PRN PRN PO Famotidine 20 MG Q12HR IV (DC) Insulin Human Lispro S/SCALE MED AC HS SUBQ Dextrose/Water 50 ML ASDIR PRN IV (CKD) Pneumococcal Polyvalent Vaccine 0.5 ML AT DISCHG IM Atorvastatin Calcium 80 MG 1700 PO Mupirocin 1 APPLIC BID NASAL Acetaminophen 650 MG Q6H PRN PRN PO Acetaminophen 650 MG Q6H PRN PRN RECTAL Albumin Human 3 ML ONCE PRN IV Bisacodyl 10 MG DAILY PRN PRN RECTAL Docusate Sodium 100 MG BID PRN PRN PO Hydralazine HCl 10 MG Q6H PRN PRN IV Labetalol HCl 10 MG ASDIR PRN IV Nicardipine HCl 25 MG ASDIR PRN IV Sodium Chloride 250 ML Nutrition assessment: The data set between the solid lines has been imported from the dietitian's assessment. Any exceptions have been noted under Provider comments. BMI Calculated: 41.9 Nutrition related diagnosis: Nutrition diagnosis details: Nutrition problem: Nutrition etiology: Nutrition signs and symptoms: Nutrition prescription: Dietitian name: Assessment completed: Provider comments on imported dietitian assessment: Physical Exam General appearance: alert, awake, oriented Head/Eyes: atraumatic Neck: supple/no meningismus Speech Speech: normal Mental Status Orientation: Yes: to time, to place, to person, to situation. Cranial Nerves Cranial nerves comments: decreased sensation left face glass eye on left Sensory Exam Sensory: Abnormal: light touch, temperature. Sensory comments: left hemisensory loss improving Motor Testing Motor testing 1: Normal: bulk, tone, fine movements, strength. Reflexes Plantar reflexes: Up: Left. Down: Right. Results Findings/Data: Laboratory Tests 01/04 01/04 01/04 2143 1528 1128 Chemistry POC Glucose (70 - 110 mg/dL) 98 124 H 107 Results: labs reviewed, vital signs stable, current med profile rev'd Diagnosis, Assessment Plan Free Text A P: acute embolic stroke, likely of cardiac origin s/p TPA with marked improvement uncontrolled HTN controlled DM obesity Keep BP in the high normal range suportive care otherwise consider anticoagulation once out of the acute stage 01/04 improving. for anticoagulation before discharge at 0732 RPT #: [id number] END OF REPORT [facility] 2021-01-04 10:33:00 [id number] [facility] [address] [place] [address] PATIENT NAME: BRYAN PARADA ADMIT DATE: 01/03/21 ACCOUNT NO: [id number] ROOM NO: [id number].[id number] AGE: 55 REPORT TYPE: eECHOCARDIOGRAM REPORT SEX: M ADMITTING PHYSICIAN: Yared Scott MD ATTENDING PHYSICIAN: Yared Scott MD *[facility]* [address] [place], [place] [address] Transthoracic Echocardiogram Patient: Bryan Parada Study Date: 01/03/2021 BP: 160 / 98 Location: [facility] URN: [id number] : 1965 Age: 55 Height: 74 in / 188 cm Gender: M Weight: 323.4 lb / 147 kg BMI/BSA: 41.6 kg/m 2 / 2.83 m 2 *Ordering Physician: Yared Monteiro *Interpreting Physician: * Anaya Nieto *Internal Affairs Commander: * Arti Woodard ------ Indications: CVA. ------ Study data: Transthoracic echocardiogram. Procedure: Transthoracic echocardiography was performed. Image quality was adequate. Complete 2D, complete spectral Doppler, and color Doppler. Location: Emergency department. Patient status: Inpatient. Patient room number: Trauma1. Study status: Routine. ------ Findings Left ventricle: The cavity size is dilated. Wall thickness is moderately increased. Systolic function is severely reduced. The estimated ejection fraction is <20%. Regional wall motion abnormalities: Severe global hypokinesis. Features are consistent with a pseudonormal left ventricular filling pattern, with concomitant abnormal relaxation and increased filling pressure (grade 2 diastolic PATIENT NAME: BRYAN PARADA dysfunction). Right ventricle: The cavity size is dilated. Pacer wire noted in the right ventricle. Systolic function is normal. Left atrium: The atrium is dilated. Right atrium: The atrium is dilated. Aorta: Aortic root: The aortic root is normal in size. Aortic valve: The valve is structurally normal. The valve is trileaflet. There is no evidence of stenosis. There is no regurgitation. Mitral valve: The valve is structurally normal. There is mild to moderate regurgitation. Tricuspid valve: The valve is structurally normal. There is mild-moderate regurgitation. Pulmonic valve: The valve is structurally normal. There is mild regurgitation. Pericardium: There is no pericardial effusion. Pulmonary arteries: The main pulmonary artery is dilated. Systemic veins: Inferior vena cava: The vessel is normal in size. ------ Measurements Left ventricle Value Ref YANETH, LAX 6.5 cm 4.2 - 5.8 ESD, LAX 5.6 cm 2.5 - 4.0 ESD/bsa, LAX 2.0 cm/m 2 1.3 - 2.1 FS, LAX 14 % 25 - 43 PW, ED 1.6 cm 0.6 - 1.0 IVS/PW, ED 1.03 --------- EF 28 % 52 - 72 IVRT 131 ms --------- E/e', avg, TDI 31 <=14 LVOT Value Ref Diam, S 2.42 cm --------- Area 4.6 cm 2 --------- Peak sommer, S 0.85 m/sec --------- Mean sommer, S 0.7 m/sec --------- VTI, S 15.4 cm --------- Peak grad, S 3 mm Hg --------- Mean grad, S 2 mm Hg --------- SV 70 ml --------- SV/bsa 25 ml/m 2 --------- Ventricular septum Value Ref IVS, ED 1.6 cm 0.6 - 1.0 Right ventricle Value Ref YANETH, LAX 4.4 cm --------- Pressure, S 42 mm Hg --------- Left atrium Value Ref PATIENT NAME: BRYAN PARADA Vol/bsa, ES, 1-p A4C 38 ml/m 2 12 - 37 Vol/bsa, ES, A/L 42 ml/m 2 16 - 34 AP dim, ES MM 4.0 cm 3.0 - 4.0 LA/Ao root ratio, MM 1.16 --------- Right atrium Value Ref Area, ES 28 cm 2 10 - 18 SI dim, ES, A4C 6.4 cm 3.4 - 5.3 SI dim/bsa, ES, A4C 2.3 cm/m 2 1.8 - 3.0 Vol, ES, A/L 103 ml --------- Vol, ES, 1-p A4C 98 ml --------- Vol/bsa, ES, 1-p A4C 34 ml/m 2 11 - 39 Aortic valve Value Ref Leaflet sep, MM 2.26 cm --------- Peak v, S 1.02 m/sec --------- Mean v, S 0.69 m/sec --------- VTI, S 17.4 cm --------- Mean grad, S 2.2 mm Hg --------- Peak grad, S 4.2 mm Hg --------- LVOT/AV, VTI ratio 0.88 --------- ANITA, VTI 4.05 cm 2 --------- LVOT/AV, Vpeak ratio 0.84 --------- ANITA, Vmax 3.84 cm 2 --------- Mitral valve Value Ref Peak E 1.11 m/sec --------- Peak A 1.03 m/sec --------- Decel time 233 ms --------- PHT 64 ms --------- Peak grad, D 4.9 mm Hg --------- Peak E/A ratio 1.08 --------- MVA, PHT 3.5 cm 2 --------- Pulmonic valve Value Ref RI peak v 1.39 m/sec --------- RI peak grad 8 mm Hg --------- Tricuspid valve Value Ref TR peak v 3.04 m/sec <=2.8 Peak RV-RA grad, S 37 mm Hg --------- Aortic root Value Ref Root diam, ED MM 3.45 cm --------- Pulmonary artery Value Ref Pressure, S 37.7 mm Hg --------- Systemic veins Value Ref Estimated CVP 5 mm Hg --------- Pulmonary veins Value Ref A rev duration 100 ms --------- PATIENT NAME: BRYAN PARADA ------ Conclusions Summary: 1. Left ventricle: The cavity size is dilated. Wall thickness is moderately increased. Systolic function is severely reduced. The estimated ejection fraction is <20%. Severe global hypokinesis. Features are consistent with a pseudonormal left ventricular filling pattern, with concomitant abnormal relaxation and increased filling pressure (grade 2 diastolic dysfunction). 2. Right ventricle: The cavity size is dilated. The RV pressure during systole by Doppler is 42 mm Hg. 3. Left atrium: The atrium is dilated. 4. Right atrium: The atrium is dilated. 5. Mitral valve: There is mild to moderate regurgitation. 6. Tricuspid valve: There is mild-moderate regurgitation. Prepared and electronically signed by Anaya Nieto 01/04/2021 10:33 at 1033 PATIENT NAME: BRYAN PARADA [facility] 2021-01-04 10:33:00 THIS REPORT HAS BEEN APPENDED [facility] [id number] [place] [id number] PATIENT NAME: BRYAN PARADA ADMIT DATE: 01/03/21 ACCOUNT NO: [id number] ROOM NO: [place] [address] AGE: 55 REPORT TYPE: eECHOCARDIOGRAM REPORT SEX: M ADMITTING PHYSICIAN: Yared Scott MD ATTENDING PHYSICIAN: Yared Scott MD *[facility]* [address] [place] [id number] Transthoracic Echocardiogram Patient: Bryan Parada Study Date: 01/03/2021 BP: 160 / 98 Location: [facility] URN: [id number] : 1965 Age: 55 Height: 74 in / 188 cm Gender: M Weight: 323.4 lb / 147 kg BMI/BSA: 41.6 kg/m 2 / 2.83 m 2 *Ordering Physician: * Yared Scott *Interpreting Physician: * Anaya Nieto *Internal Affairs Commander: * Arti Woodard ------ Indications: CVA. ------ Study data: Transthoracic echocardiogram. Procedure: Transthoracic echocardiography was performed. Image quality was adequate. Complete 2D, complete spectral Doppler, and color Doppler. Location: Emergency department. Patient status: Inpatient. Patient room number: Trauma1. Study status: Routine. ------ Findings Left ventricle: The cavity size is dilated. Wall thickness is moderately increased. Systolic function is severely reduced. The estimated ejection fraction is <20%. Regional wall motion abnormalities: Severe global hypokinesis. Features are consistent with PATIENT NAME: BRYAN PARADA a pseudonormal left ventricular filling pattern, with concomitant abnormal relaxation and increased filling pressure (grade 2 diastolic dysfunction). Right ventricle: The cavity size is dilated. Pacer wire noted in the right ventricle. Systolic function is normal. Left atrium: The atrium is dilated. Right atrium: The atrium is dilated. Aorta: Aortic root: The aortic root is normal in size. Aortic valve: The valve is structurally normal. The valve is trileaflet. There is no evidence of stenosis. There is no regurgitation. Mitral valve: The valve is structurally normal. There is mild to moderate regurgitation. Tricuspid valve: The valve is structurally normal. There is mild-moderate regurgitation. Pulmonic valve: The valve is structurally normal. There is mild regurgitation. Pericardium: There is no pericardial effusion. Pulmonary arteries: The main pulmonary artery is dilated. Systemic veins: Inferior vena cava: The vessel is normal in size. ------ Measurements Left ventricle Value Ref YANETH, LAX 6.5 cm 4.2 - 5.8 ESD, LAX 5.6 cm 2.5 - 4.0 ESD/bsa, LAX 2.0 cm/m 2 1.3 - 2.1 FS, LAX 14 % 25 - 43 PW, ED 1.6 cm 0.6 - 1.0 IVS/PW, ED 1.03 --------- EF 28 % 52 - 72 IVRT 131 ms --------- E/e', avg, TDI 31 <=14 LVOT Value Ref Diam, S 2.42 cm --------- Area 4.6 cm 2 --------- Peak sommer, S 0.85 m/sec --------- Mean sommer, S 0.7 m/sec --------- VTI, S 15.4 cm --------- Peak grad, S 3 mm Hg --------- Mean grad, S 2 mm Hg --------- SV 70 ml --------- SV/bsa 25 ml/m 2 --------- Ventricular septum Value Ref IVS, ED 1.6 cm 0.6 - 1.0 Right ventricle Value Ref YANETH, LAX 4.4 cm --------- Pressure, S 42 mm Hg --------- PATIENT NAME: BRYAN PARADA Left atrium Value Ref Vol/bsa, ES, 1-p A4C 38 ml/m 2 12 - 37 Vol/bsa, ES, A/L 42 ml/m 2 16 - 34 AP dim, ES MM 4.0 cm 3.0 - 4.0 LA/Ao root ratio, MM 1.16 --------- Right atrium Value Ref Area, ES 28 cm 2 10 - 18 SI dim, ES, A4C 6.4 cm 3.4 - 5.3 SI dim/bsa, ES, A4C 2.3 cm/m 2 1.8 - 3.0 Vol, ES, A/L 103 ml --------- Vol, ES, 1-p A4C 98 ml --------- Vol/bsa, ES, 1-p A4C 34 ml/m 2 11 - 39 Aortic valve Value Ref Leaflet sep, MM 2.26 cm --------- Peak v, S 1.02 m/sec --------- Mean v, S 0.69 m/sec --------- VTI, S 17.4 cm --------- Mean grad, S 2.2 mm Hg --------- Peak grad, S 4.2 mm Hg --------- LVOT/AV, VTI ratio 0.88 --------- ANITA, VTI 4.05 cm 2 --------- LVOT/AV, Vpeak ratio 0.84 --------- ANITA, Vmax 3.84 cm 2 --------- Mitral valve Value Ref Peak E 1.11 m/sec --------- Peak A 1.03 m/sec --------- Decel time 233 ms --------- PHT 64 ms --------- Peak grad, D 4.9 mm Hg --------- Peak E/A ratio 1.08 --------- MVA, PHT 3.5 cm 2 --------- Pulmonic valve Value Ref RI peak v 1.39 m/sec --------- RI peak grad 8 mm Hg --------- Tricuspid valve Value Ref TR peak v 3.04 m/sec <=2.8 Peak RV-RA grad, S 37 mm Hg --------- Aortic root Value Ref Root diam, ED MM 3.45 cm --------- Pulmonary artery Value Ref Pressure, S 37.7 mm Hg --------- Systemic veins Value Ref Estimated CVP 5 mm Hg --------- Pulmonary veins Value Ref PATIENT NAME: BRYAN PARADA A rev duration 100 ms --------- ------ Conclusions Summary: 1. Left ventricle: The cavity size is dilated. Wall thickness is moderately increased. Systolic function is severely reduced. The estimated ejection fraction is <20%. Severe global hypokinesis. Features are consistent with a pseudonormal left ventricular filling pattern, with concomitant abnormal relaxation and increased filling pressure (grade 2 diastolic dysfunction). 2. Right ventricle: The cavity size is dilated. The RV pressure during systole by Doppler is 42 mm Hg. 3. Left atrium: The atrium is dilated. 4. Right atrium: The atrium is dilated. 5. Mitral valve: There is mild to moderate regurgitation. 6. Tricuspid valve: There is mild-moderate regurgitation. Prepared and electronically signed by Anaya Nieto 01/04/2021 10:33 at 1033 SECTION 2 ADDENDUM 1: 01/04/21 1035 [facility] *[facility]* [address] [place], [place] [address] Transthoracic Echocardiogram (Report amended [id number]) Patient: Bryan Parada Study Date: 01/03/2021 BP: 160 / 98 Location: [facility] URN: [id number] : 1965 Age: 55 Height: 74 in / 188 cm Gender: M Weight: 323.4 lb / 147 kg BMI/BSA: 41.6 kg/m 2 / 2.83 m 2 *Ordering Physician: * Yared Scott PATIENT NAME: BRYAN PARADA *Interpreting Physician: * Anaya Nieto *Internal Affairs Commander: * Arti Woodard ------ Indications: CVA. ------ Study data: Transthoracic echocardiogram. Procedure: Transthoracic echocardiography was performed. Image quality was adequate. Complete 2D, complete spectral Doppler, and color Doppler. Location: Emergency department. Patient status: Inpatient. Patient room number: Trauma1. Study status: Routine. ------ Findings Left ventricle: The cavity size is dilated. Wall thickness is moderately increased. Systolic function is severely reduced. The estimated ejection fraction is <20%. Regional wall motion abnormalities: Severe global hypokinesis. Doppler parameters are consistent with abnormal left ventricular relaxation (grade 1 diastolic dysfunction). Right ventricle: The cavity size is dilated. Pacer wire noted in the right ventricle. Systolic function is normal. Left atrium: The atrium is dilated. Right atrium: The atrium is dilated. Atrial septum: Echo contrast study shows no shunt. Aorta: Aortic root: The aortic root is normal in size. Aortic valve: The valve is structurally normal. The valve is trileaflet. There is no evidence of stenosis. There is no regurgitation. Mitral valve: The valve is structurally normal. There is mild to moderate regurgitation. Tricuspid valve: The valve is structurally normal. There is mild-moderate regurgitation. Pulmonic valve: The valve is structurally normal. There is mild regurgitation. Pericardium: There is no pericardial effusion. Pulmonary arteries: The main pulmonary artery is dilated. Systemic veins: Inferior vena cava: The vessel is normal in size. ------ Measurements Left ventricle Value Ref YANETH, LAX 6.5 cm 4.2 - 5.8 ESD, LAX 5.6 cm 2.5 - 4.0 ESD/bsa, LAX 2.0 cm/m 2 1.3 - 2.1 FS, LAX 14 % 25 - 43 PW, ED 1.6 cm 0.6 - 1.0 IVS/PW, ED 1.03 --------- EF 28 % 52 - 72 PATIENT NAME: BRYAN PARADA IVRT 131 ms --------- E/e', avg, TDI 31 <=14 LVOT Value Ref Diam, S 2.42 cm --------- Area 4.6 cm 2 --------- Peak sommer, S 0.85 m/sec --------- Mean sommer, S 0.7 m/sec --------- VTI, S 15.4 cm --------- Peak grad, S 3 mm Hg --------- Mean grad, S 2 mm Hg --------- SV 70 ml --------- SV/bsa 25 ml/m 2 --------- Ventricular septum Value Ref IVS, ED 1.6 cm 0.6 - 1.0 Right ventricle Value Ref YANETH, LAX 4.4 cm --------- Pressure, S 42 mm Hg --------- Left atrium Value Ref Vol/bsa, ES, 1-p A4C 38 ml/m 2 12 - 37 Vol/bsa, ES, A/L 42 ml/m 2 16 - 34 AP dim, ES MM 4.0 cm 3.0 - 4.0 LA/Ao root ratio, MM 1.16 --------- Right atrium Value Ref Area, ES 28 cm 2 10 - 18 SI dim, ES, A4C 6.4 cm 3.4 - 5.3 SI dim/bsa, ES, A4C 2.3 cm/m 2 1.8 - 3.0 Vol, ES, A/L 103 ml --------- Vol, ES, 1-p A4C 98 ml --------- Vol/bsa, ES, 1-p A4C 34 ml/m 2 11 - 39 Aortic valve Value Ref Leaflet sep, MM 2.26 cm --------- Peak v, S 1.02 m/sec --------- Mean v, S 0.69 m/sec --------- VTI, S 17.4 cm --------- Mean grad, S 2.2 mm Hg --------- Peak grad, S 4.2 mm Hg --------- LVOT/AV, VTI ratio 0.88 --------- ANITA, VTI 4.05 cm 2 --------- LVOT/AV, Vpeak ratio 0.84 --------- ANITA, Vmax 3.84 cm 2 --------- Mitral valve Value Ref Peak E 1.11 m/sec --------- Peak A 1.03 m/sec --------- Decel time 233 ms --------- PHT 64 ms --------- Peak grad, D 4.9 mm Hg --------- Peak E/A ratio 1.08 --------- PATIENT NAME: BRYAN PARADA MVA, PHT 3.5 cm 2 --------- Pulmonic valve Value Ref RI peak v 1.39 m/sec --------- RI peak grad 8 mm Hg --------- Tricuspid valve Value Ref TR peak v 3.04 m/sec <=2.8 Peak RV-RA grad, S 37 mm Hg --------- Aortic root Value Ref Root diam, ED MM 3.45 cm --------- Pulmonary artery Value Ref Pressure, S 37.7 mm Hg --------- Systemic veins Value Ref Estimated CVP 5 mm Hg --------- Pulmonary veins Value Ref A rev duration 100 ms --------- ------ Conclusions Summary: 1. Left ventricle: The cavity size is dilated. Wall thickness is moderately increased. Systolic function is severely reduced. The estimated ejection fraction is <20%. Severe global hypokinesis. Doppler parameters are consistent with abnormal left ventricular relaxation (grade 1 diastolic dysfunction). 2. Right ventricle: The cavity size is dilated. The RV pressure during systole by Doppler is 42 mm Hg. 3. Left atrium: The atrium is dilated. 4. Right atrium: The atrium is dilated. 5. Atrial septum: Echo contrast study shows no shunt. 6. Mitral valve: There is mild to moderate regurgitation. 7. Tricuspid valve: There is mild-moderate regurgitation. Anaya Patel 01/04/2021 10:35 at 1035 PATIENT NAME: BRYAN PARADA [facility] 2021-01-04 10:03:00 [facility] ([facility]) Hospitalist Progress Note REPORT#:[id number] REPORT STATUS: Signed DATE:01/04/21 TIME:1003 PATIENT: BRYAN PARADA UNIT #: [id number] ROOM[facility]BED: [place] : 66 AGE: 55 SEX: M ATTEND: Yared Scott MD ADM AUTHOR: Yared Scott MD * ALL edits or amendments must be made on the electronic/computer document * Subjective Chief Complaint: Feeling better No acute events Denies any chest pain or palpitation Objective General VS/I O: Vital Signs: Date Time Temp Pulse Resp B/P B/P Pulse O2 O2 Flow FiO2 Mean Ox Delivery Rate / 0700 97.0 76 17 117/80 94 99 06/04 0649 100 Room air 21 06/04 0645 79 14 120/87 100 100 06/04 0630 77 18 114/88 98 99 06/04 0615 78 18 122/94 105 100 06/04 0601 75 14 120/92 103 100 06/04 0545 79 16 138/93 111 99 06/04 0531 77 22 127/88 104 98 06/04 0515 77 19 134/91 107 100 06/04 0500 76 16 133/94 109 98 06/04 0452 78 21 131/88 105 98 06/04 0451 74 17 100 06/04 0415 73 16 133/91 108 100 06/04 0401 74 18 129/88 104 99 06/04 0400 96.8 74 18 129/88 101 100 2 06/04 0345 71 21 129/90 106 100 06/04 0330 71 134/90 107 100 06/04 0315 71 138/94 111 99 06/04 0300 71 137/92 110 100 06/04 0245 74 11 143/93 114 100 06/04 0230 72 19 143/89 111 99 06/04 0215 70 23 132/88 106 100 06/04 0208 72 37 128/85 103 100 06/04 0145 69 16 124/87 103 100 06/04 0130 70 21 128/91 106 99 06/04 0115 68 21 129/89 105 98 06/04 0100 70 18 139/93 111 98 06/04 0045 73 14 134/92 109 100 06/04 0030 69 18 134/90 106 100 06/04 0015 70 19 132/88 105 100 06/04 0000 69 17 126/78 97 99 06/04 0000 96.8 69 17 126/78 94 99 Nasal 2 cannula 06/03 0 74 28 134/93 109 100 06/03 2215 75 33 134/88 107 97 06/03 2201 73 14 133/86 105 100 06/03 2146 75 34 137/85 106 98 06/03 2130 73 13 131/71 98 98 06/03 5 74 20 138/92 109 99 06/03 2100 75 19 133/90 107 06/03 5 74 21 131/83 103 95 06/03 2029 73 20 128/79 99 94 06/03 2022 95 Room air 21 01/03 2015 71 17 129/80 100 95 06/03 1999 70 18 123/77 96 95 06/03 1945 71 18 131/80 101 96 06/03 1931 72 23 136/77 101 95 06/03 1915 74 26 135/91 109 92 06/03 1900 97.2 74 19 137/83 101 95 Room air 06/03 1900 74 19 137/83 104 96 06/03 1845 72 17 136/91 109 95 06/03 1830 72 19 146/99 118 94 06/03 1815 72 20 141/91 111 96 06/03 1800 75 18 136/91 109 97 06/03 1745 73 19 136/87 107 97 06/03 1730 73 24 134/83 104 97 06/03 1723 72 23 134/84 104 97 06/03 1700 75 19 142/93 112 96 06/03 1646 78 22 142/98 116 96 06/03 1630 80 144/86 108 97 06/03 1624 80 28 146/96 117 96 06/03 1620 96.9 06/03 1600 70 16 142/90 107 96 Room air 06/03 1527 97 06/03 1500 74 13 148/88 108 97 Room air 06/03 1405 98.0 80 14 160/98 118 97 Room air 24 hour I O ending at 0700: 06/04 0700 06/03 1900 Intake Total 200 200 Output Total 350 600 Balance -150 -400 Intake, Oral 200 200 Output, Urine 350 600 Patient 326 lb 324 lb Weight Weight Bed scale Bed scale Measurement Method PATIENT WEIGHT: Weight (lb): 326 Weight (oz): 4.55 Weight (kg): 148.000 Medications: Active Meds + DC'd Last 24 Hrs Furosemide 20 MG BID IV Aspirin 81 MG DAILY PO Diphenhydramine HCl 25 MG Q6H PRN PRN PO Famotidine 20 MG Q12HR IV Insulin Human Lispro S/SCALE MED AC HS SUBQ Dextrose/Water 50 ML ASDIR PRN IV (CKD) Pneumococcal Polyvalent Vaccine 0.5 ML AT DISCHG IM Atorvastatin Calcium 80 MG 1700 PO Mupirocin 1 APPLIC BID NASAL Sodium Chloride 100 ML .STK-MED ONE IV (DC) Acetaminophen 650 MG Q6H PRN PRN PO Acetaminophen 650 MG Q6H PRN PRN RECTAL Albumin Human 3 ML ONCE PRN IV Bisacodyl 10 MG DAILY PRN PRN RECTAL Docusate Sodium 100 MG BID PRN PRN PO Hydralazine HCl 10 MG Q6H PRN PRN IV Sodium Chloride 50 ML ONCE ONE IV (DC) Labetalol HCl 10 MG ASDIR PRN IV Nicardipine HCl 25 MG ASDIR PRN IV Sodium Chloride 250 ML Alteplase, Recombinant SEE ADMIN CRIT X1ED STA IV (DC) Sodium Chloride 1,000 ML X1ED STA IV (CAN) Iopamidol 0 .STK-MED ONE .ROUTE (DC) Physical Exam General appearance: obese, alert, awake Head/Eyes: atraumatic, normocephalic ENT: moist mucosal membranes Neck: supple/no meningismus Cardiovascular: normal heart sounds, regular rate rhythm Respiratory: aerating well, symmetric expansion Abdomen: soft, no distention Genitourinary: no bladder distention Rectal: deferred Extremities: decreased range of motion, no edema Musculoskeletal: decreased ROM 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: left hemiparesis, alert, oriented X 3 Skin: dry, no rash Lymphatics: no lymphadenopathy Psychiatry: anxious Results Findings/Data: Laboratory Tests 01/04 01/04 01/04 01/03 1128 0731 [id number] Chemistry Sodium (134 - 147 mmol/L) 142 Potassium (3.4 - 5.0 mmol/L) 4.3 Chloride (100 - 108 mmol/L) 109 H Carbon Dioxide (21 - 32 mmol/L) 27 Anion Gap (4.0 - 15.0 GAP calc) 6.0 BUN (7 - 18 MG/DL) 22 H Creatinine (0.8 - 1.3 MG/DL) 1.2 Glomerular Filtr Rate (>60 estGFR) >=60 max estimate Glucose (70 - 110 MG/DL) 98 POC Glucose (70 - 110 mg/dL) 107 109 88 Calcium (8.5 - 10.1 MG/DL) 8.7 Phosphorus (2.5 - 4.9 MG/DL) 3.8 Magnesium (1.8 - 2.4 MG/DL) 2.1 NT-Pro-B Natriuret Pep (0 - 100 PG/ML) 753 H 01/03 01/03 1745 1417 Chemistry Sodium (134 - 147 mmol/L) 142 Potassium (3.4 - 5.0 mmol/L) 3.8 Chloride (100 - 108 mmol/L) 107 Carbon Dioxide (21 - 32 mmol/L) 26 Anion Gap (4.0 - 15.0 GAP calc) 9.0 BUN (7 - 18 MG/DL) 26 H Creatinine (0.8 - 1.3 MG/DL) 1.4 H Glomerular Filtr Rate (>60 estGFR) >=60 max estimate Glucose (70 - 110 MG/DL) 100 POC Glucose (70 - 110 mg/dL) 97 Calcium (8.5 - 10.1 MG/DL) 8.9 Troponin I (0.000 - 0.045 NG/ML) 0.020 Laboratory Tests 01/03 1417 Coagulation INR (0.8 - 1.2 INR Unit) 0.98 PTT (Cloud) (26 - 35 SECONDS) 30.0 PT Patient/Control Mix (9.3 - 12.9 SECONDS) 11.0 Laboratory Tests 01/04 01/03 0429 1417 Hematology WBC (3.5 - 11.0 K/mm3) 4.9 5.1 RBC (4.70 - 6.10 M/mm3) 5.52 5.68 Hgb (12.3 - 15.9 G/DL) 13.9 14.3 Hct (35.8 - 46.7 %) 45.0 46.5 MCV (86.3 - 98.9 Fl) 81.5 L 81.9 L MCH (28.9 - 34.4 pg) 25.2 L 25.2 L MCHC (32.1 - 34.5 G/DL) 30.9 L 30.8 L RDW (11.5 - 14.5 SD) 16.3 H 16.6 H Plt Count (150 - 450 K/mm3) 188 198 MPV (7.0 - 9.6 fL) 10.40 H 10.30 H Neut % (Auto) (40 - 76 %) 44.5 Lymph % (Auto) (20.5 - 51.1 %) 41.3 [place] % (Auto) (1.7 - 9.3 %) 11.3 H Eos % (Auto) (0.0 - 6.0 %) 2.5 Baso % (Auto) (0.0 - 2.0 %) 0.2 Neut # (Auto) (1.8 - 7.6 K/mm3) 2.2 Lymph # (Auto) (0.6 - 3.0 K/mm3) 2.0 [place] # (Auto) (0.2 - 1.5 K/mm3) 0.6 Eos # (Auto) (0.0 - 0.4 K/mm3) 0.1 Baso # (Auto) (0.0 - 0.2 K/mm3) 0.0 Abs Immat Gran (auto) (0.00 - 0.03 x10 3/uL) 0.01 Add Manual Diff (CRITERIA DIFF/SCN) NO Immature Gran % (0.0 - 5.0 %) 0.2 Nucleated RBC % (0.0 - 1.0 /100WBC%) 0.0 Laboratory Tests 01/03 1434 Serology SARS-CoV-2 Ag (Rapid) (Negative) NEGATIVE Radiology data: Recent Impressions: CAT SCAN - CT HEAD/BRAIN W/O CONT 01/03 1408 Report Impression - Status: SIGNED Entered: 01/03/2021 1423 IMPRESSION: No acute intracranial abnormality identified. Discussed with Dr. Alfaro at 1419 on 01/03/2021. Impression By: VikramPEAshley - Vernon Garibay M.D. CAT SCAN - CT ANGIO HEAD 01/03 1420 Report Impression - Status: SIGNED Entered: 01/03/2021 1457 IMPRESSION: Normal head and neck CTA. Impression By: Jennifer Mayer M.D. CAT SCAN - CT ANGIO NECK 01/03 1426 Report Impression - Status: SIGNED Entered: 01/03/2021 1457 IMPRESSION: Normal head and neck CTA. Impression By: Jennifer Mayer M.D. RADIOLOGY - XR CHEST 1 V 01/03 1515 Report Impression - Status: SIGNED Entered: 01/03/2021 1729 IMPRESSION: Cardiomegaly with diffuse congestive changes bilaterally. Impression By: Luzmaria - Cindy Zabala M.D. Diagnosis, Assessment Plan Problem List/A P: 1. Acute CVA (cerebrovascular accident) Orders: Procedure Date/time Status EVAL PT MOD COMPLEX [id number] 01/04 103 Active EXERCISE 15 MINUTES 01/04 103 Active PT: POCC - PT STAFF ONLY 01/04 103 Active Telemetry Monitoring 01/04 0844 Active LEVEL OF CARE 01/05 844 Active EVAL ORAL/PHARYNGL SWALLOW 01/[address]: POCC - ST STAFF ONLY 01/03 1943 Active Free Text DxA P Notes Free text DxA P notes: Acute CVA with left-sided weakness Accelerated hypertension Acute kidney injury on chronic systolic CHF with EF less than 20% status post AICD Chronic kidney disease stage II History of CAD Plan Monitor under telemetry Neuro vital signs CT showed no acute changes CTA findings noted Status post TPA We will admit to ICU Neurology consulted We will get a MRI of the brain Permissible hypertension We will monitor renal parameters Electrolytes monitor and replace accordingly Continue home medications and titrate as needed We will get an echocardiogram GI/DVT prophylaxis Advanced directive full code discussed with the patient Total critical care time used was more than 30 minutes 01/04/2021 Monitor closely under telemetry Status post TPA Could not do an MRI because of the pacemaker We will downgrade to telemetry Start on PT OT and ST Echo awaited Electrolytes monitor and replace accordingly Renal parameters monitored Appreciate help from consultants Total critical care time used was more than 30 minutes at 1144 RPT #: [id number] END OF REPORT [facility] 2021-01-04 09:26:00 [facility] ([facility]) Pulmonology Progress Note REPORT#:[id number] REPORT STATUS: Signed DATE:01/04/21 TIME:925 PATIENT: BRYAN PARADA UNIT #: [id number] ROOM/BED: [place] [address]-1 : 66 AGE: 55 SEX: M ATTEND: Yared Scott MD ADM AUTHOR: Álvaro Becerra MD * ALL edits or amendments must be made on the electronic/computer document * Subjective Chief Complaint: Patient has partial improvement of Weakness left side no SOB , no headache , mild intermittent chest pain Review of Systems ROS All systems rev neg: except as marked Objective General VS/I O: Last Documented: Result Date Time Pulse Ox 99 01/04 700 B/P 117/80 01/04 700 B/P Mean 94 01/04 700 Temp 36.1 01/04 700 Pulse 76 01/04 07 Resp 17 01/04 07 FiO2 21 01/04 0649 O2 Delivery Room air 01/04 0649 O2 Flow Rate 2 01/04 0400 24 hour I O ending at 0700: 01/04 0700 01/03 1900 Intake Total 200 200 Output Total 350 600 Balance -150 -400 Intake, Oral 200 200 Output, Urine 350 600 Patient 148 kg 147 kg Weight Weight Bed scale Bed scale Measurement Method PATIENT WEIGHT: Weight (lb): 326 Weight (oz): 4.55 Weight (kg): 148.000 Medications: Active Meds + DC'd Last 24 Hrs Aspirin 81 MG DAILY PO Diphenhydramine HCl 25 MG Q6H PRN PRN PO Famotidine 20 MG Q12HR IV Insulin Human Lispro S/SCALE MED AC HS SUBQ Dextrose/Water 50 ML ASDIR PRN IV (CKD) Pneumococcal Polyvalent Vaccine 0.5 ML AT DISCHG IM Atorvastatin Calcium 80 MG 1700 PO Mupirocin 1 APPLIC BID NASAL Sodium Chloride 100 ML .STK-MED ONE IV (DC) Acetaminophen 650 MG Q6H PRN PRN PO Acetaminophen 650 MG Q6H PRN PRN RECTAL Albumin Human 3 ML ONCE PRN IV Bisacodyl 10 MG DAILY PRN PRN RECTAL Docusate Sodium 100 MG BID PRN PRN PO Hydralazine HCl 10 MG Q6H PRN PRN IV Sodium Chloride 50 ML ONCE ONE IV (DC) Labetalol HCl 10 MG ASDIR PRN IV Nicardipine HCl 25 MG ASDIR PRN IV Sodium Chloride 250 ML Alteplase, Recombinant SEE ADMIN CRIT X1ED STA IV (DC) Sodium Chloride 1,000 ML X1ED STA IV (CAN) Iopamidol 0 .STK-MED ONE .ROUTE (DC) Physical Exam General appearance: alert, awake Head/eyes: atraumatic, normocephalic, PERRLA Neck: full range of motion Cardiovascular: normal heart sounds, normal S1/S2, no murmur, no rub Respiratory/chest: aerating well, symmetric expansion, no distress Abdomen: soft, non-tender, normal bowel sounds Genitourinary: no brown 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, 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 X 3 Lymphatics: no lymphadenopathy Results Findings/Data: Laboratory Tests 01/04/21 0429: [Embedded Image Not Available] 01/03/21 1417: [Embedded Image Not Available] Laboratory Tests 01/04 01/04 01/03 01/03 0731 0429 2154 1745 Chemistry Sodium (134 - 147 mmol/L) 142 Potassium (3.4 - 5.0 mmol/L) 4.3 Chloride (100 - 108 mmol/L) 109 H Carbon Dioxide (21 - 32 mmol/L) 27 Anion Gap (4.0 - 15.0 GAP calc) 6.0 BUN (7 - 18 MG/DL) 22 H Creatinine (0.8 - 1.3 MG/DL) 1.2 Glomerular Filtr Rate (>60 estGFR) >=60 max estimate Glucose (70 - 110 MG/DL) 98 POC Glucose (70 - 110 mg/dL) 109 88 97 Calcium (8.5 - 10.1 MG/DL) 8.7 Phosphorus (2.5 - 4.9 MG/DL) 3.8 Magnesium (1.8 - 2.4 MG/DL) 2.1 NT-Pro-B Natriuret Pep (0 - 100 PG/ML) 753 H 01/03 141 Chemistry Sodium (134 - 147 mmol/L) 142 Potassium (3.4 - 5.0 mmol/L) 3.8 Chloride (100 - 108 mmol/L) 107 Carbon Dioxide (21 - 32 mmol/L) 26 Anion Gap (4.0 - 15.0 GAP calc) 9.0 BUN (7 - 18 MG/DL) 26 H Creatinine (0.8 - 1.3 MG/DL) 1.4 H Glomerular Filtr Rate (>60 estGFR) >=60 max estimate Glucose (70 - 110 MG/DL) 100 Calcium (8.5 - 10.1 MG/DL) 8.9 Troponin I (0.000 - 0.045 NG/ML) 0.020 Laboratory Tests 01/03 1417 Coagulation INR (0.8 - 1.2 INR Unit) 0.98 PTT (Terrance) (26 - 35 SECONDS) 30.0 PT Patient/Control Mix (9.3 - 12.9 SECONDS) 11.0 Laboratory Tests 01/04 01/03 0429 1417 Hematology WBC (3.5 - 11.0 K/mm3) 4.9 5.1 RBC (4.70 - 6.10 M/mm3) 5.52 5.68 Hgb (12.3 - 15.9 G/DL) 13.9 14.3 Hct (35.8 - 46.7 %) 45.0 46.5 MCV (86.3 - 98.9 Fl) 81.5 L 81.9 L MCH (28.9 - 34.4 pg) 25.2 L 25.2 L MCHC (32.1 - 34.5 G/DL) 30.9 L 30.8 L RDW (11.5 - 14.5 SD) 16.3 H 16.6 H Plt Count (150 - 450 K/mm3) 188 198 MPV (7.0 - 9.6 fL) 10.40 H 10.30 H Neut % (Auto) (40 - 76 %) 44.5 Lymph % (Auto) (20.5 - 51.1 %) 41.3 [place] % (Auto) (1.7 - 9.3 %) 11.3 H Eos % (Auto) (0.0 - 6.0 %) 2.5 Baso % (Auto) (0.0 - 2.0 %) 0.2 Neut # (Auto) (1.8 - 7.6 K/mm3) 2.2 Lymph # (Auto) (0.6 - 3.0 K/mm3) 2.0 [place] # (Auto) (0.2 - 1.5 K/mm3) 0.6 Eos # (Auto) (0.0 - 0.4 K/mm3) 0.1 Baso # (Auto) (0.0 - 0.2 K/mm3) 0.0 Abs Immat Gran (auto) (0.00 - 0.03 x10 3/uL) 0.01 Add Manual Diff (CRITERIA DIFF/SCN) NO Immature Gran % (0.0 - 5.0 %) 0.2 Nucleated RBC % (0.0 - 1.0 /100WBC%) 0.0 Laboratory Tests 01/03 1434 Serology SARS-CoV-2 Ag (Rapid) (Negative) NEGATIVE Radiology data: Recent Impressions: CAT SCAN - CT HEAD/BRAIN W/O CONT 01/03 1408 Report Impression - Status: SIGNED Entered: 01/03/2021 1423 IMPRESSION: No acute intracranial abnormality identified. Discussed with Dr. Alfaro at 1419 on 01/03/2021. Impression By: Nataliya Garibay M.D. CAT SCAN - CT ANGIO HEAD 01/03 1420 Report Impression - Status: SIGNED Entered: 01/03/2021 1457 IMPRESSION: Normal head and neck CTA. Impression By: Jennifer Mayer M.D. CAT SCAN - CT ANGIO NECK 01/03 1426 Report Impression - Status: SIGNED Entered: 01/03/2021 1457 IMPRESSION: Normal head and neck CTA. Impression By: Jennifer Mayer M.D. RADIOLOGY - XR CHEST 1 V 01/03 1515 Report Impression - Status: SIGNED Entered: 01/03/2021 1729 IMPRESSION: Cardiomegaly with diffuse congestive changes bilaterally. Impression By: Luzmaria Zabala M.D. Diagnosis, Assessment Plan Free Text A P: Assessment CVA Possible CHF EF less than 25% status post AICD decompensated CKD Hypertension CAD Plan S/P TPA Cont VS monitoring Neuro status improved Possible TIA Pending MRI brain Hemodynamically stable CXR reviewed mild increase infiltrate ; lasix 20 mg BID to be started Follow up I/O cardiology on board Comfortable on room air Monitor renal function, pending UA DVT prophylaxis SCDs start lovenox /ASA after 24 hours from TPA ( THis evening ) Pt/ot Passed swallow eval D/G to IMU at 0936 RPT #: [id number] END OF REPORT [facility] 2021-01-03 19:44:00 [facility] ([facility]) Neurology Consultation Note REPORT#:[id number] REPORT STATUS: Signed DATE:01/03/21 TIME:1943 PATIENT: BRYAN PARADA UNIT #: [id number] ROOM[facility]BED: [facility] : 66 AGE: 55 SEX: M ATTEND: Yared Scott MD ADM AUTHOR: Fran Mann MD * ALL edits or amendments must be made on the electronic/computer document * History of Present Illness HPI HPI: Sudden onset acute left side weakness at noon today. Treated with TPA. Hx of morbis obesity with 100 pound weight loss in last year-now 308 pounds.Hx of pacemaker for a slow heartbeat. Hx DM,HTN with HTN incontrolled. 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 Additional medical history: Hypercholesterolemia, coronary artery disease Additional surgical history: Status post AICD/PPM Additional family history: Mother and father both with unknown cancers Smoking status: Smoking status for patients 13 years old or older: Unknown,if ever smoked Allergies: Coded Allergies: No Known Allergies (11/30/20) Free text [facility] notes: Unemployed Lives alone Does not smoke tobacco, drink alcohol, or consume any illicit drugs Review of Systems Constitutional: Reports: recent wt loss. Denies: chills, fatigue, fever, generalized weakness, lethargy, malaise, other. Skin: Denies: rash. Eyes: Denies: redness, discharge, visual loss/blurred, itching, diplopia, eye pain, photophobia, swelling, other. Respiratory: Denies: DELGADO (dyspnea on exertion), hemoptysis, non productive cough, parox nocturnal dyspnea, pleurisy, pleuritic pain, pneumonia, productive cough (sputum ), SOB, wheezing, other. Cardiovascular: Denies: chest pain, DELGADO (dyspnea on exertion), edema, orthopnea, palpitations, parox nocturnal dyspnea, other. GI: Denies: abdominal pain, anorexia, constipation, diarrhea, dysphagia, GERD, hematemesis, hematochezia, hiatal hernia, melena, nausea, rectal pain, vomiting, other. Musculoskeletal: Denies: arthritis, extremity pain, extremity swelling, joint pain, joint swelling, lumbar pain, myalgias, neck pain, thoracic pain, other. Neuro: Reports: focal weakness, numbness. Denies: bladder incontinence, bowel incontinence, change in LOC, confusion, dizziness, gait problem, headache, lightheaded, seizure, slurred speech, spinning sensation, passed out, unable to speak, vision change, generalized weakness, other. Objective General VS: Last Documented: Result Date Time Pulse Ox 95 01/03 1845 B/P 136/91 01/03 1845 B/P Mean 109 01/03 1845 Pulse 72 01/03 1845 Resp 17 01/03 1845 Temp 36.1 01/03 1620 O2 Delivery Room air 01/03 1600 PATIENT WEIGHT: Weight (lb): 324 Weight (oz): 1.27 Weight (kg): 147.000 Medications Current Home Medications glipiZIDE (GLUCOTROL) 5 MG PO BID SPIRONOLACTONE (ALDACTONE) 25 MG PO DAILY amLODIPine (NORVASC) 10 MG PO DAILY CARVEDILOL (COREG) 25 MG PO BID MEALS POTASSIUM BICARBONATE/CIT AC (EFFER-K 20 MEQ TABLET EFF) 20 MEQ PO DAILY cloNIDine (CATAPRES) 0.2 MG PO Q8H NITROGLYCERIN (NITROSTAT) 0.4 MG SL Q5M PRN PRN CHEST PAIN CLOPIDOGREL (PLAVIX) 75 MG PO DAILY Active Meds + DC'd Last 24 Hrs Aspirin 81 MG DAILY PO Famotidine 20 MG Q12HR IV Insulin Human Lispro S/SCALE MED AC HS SUBQ Dextrose/Water 50 ML ASDIR PRN IV (CKD) Pneumococcal Polyvalent Vaccine 0.5 ML AT DISCHG IM Atorvastatin Calcium 80 MG 1700 PO Mupirocin 1 APPLIC BID NASAL Sodium Chloride 100 ML .STK-MED ONE IV (DC) Acetaminophen 650 MG Q6H PRN PRN PO Acetaminophen 650 MG Q6H PRN PRN RECTAL Albumin Human 3 ML ONCE PRN IV Bisacodyl 10 MG DAILY PRN PRN RECTAL Docusate Sodium 100 MG BID PRN PRN PO Hydralazine HCl 10 MG Q6H PRN PRN IV Sodium Chloride 50 ML ONCE ONE IV (DC) Labetalol HCl 10 MG ASDIR PRN IV Nicardipine HCl 25 MG ASDIR PRN IV Sodium Chloride 250 ML Alteplase, Recombinant SEE ADMIN CRIT X1ED STA IV (DC) Sodium Chloride 1,000 ML X1ED STA IV (CAN) Iopamidol 0 .STK-MED ONE .ROUTE (DC) Physical Exam General appearance: obese, alert, awake, oriented Head/Eyes: atraumatic Neck: supple/no meningismus Speech Speech: normal Mental Status Orientation: Yes: to time, to place, to person, to situation. Cranial Nerves Cranial nerves comments: decreased sensation left face glass eye on left Sensory Exam Sensory: Abnormal: light touch, temperature. Sensory comments: left hemisensory loss Motor Testing Motor testing 1: Normal: bulk, tone, fine movements, strength. Reflexes Plantar reflexes: Up: Left. Down: Right. Results Findings/Data: Laboratory Tests 01/03 01/03 1745 1417 Chemistry Sodium (134 - 147 mmol/L) 142 Potassium (3.4 - 5.0 mmol/L) 3.8 Chloride (100 - 108 mmol/L) 107 Carbon Dioxide (21 - 32 mmol/L) 26 Anion Gap (4.0 - 15.0 GAP calc) 9.0 BUN (7 - 18 MG/DL) 26 H Creatinine (0.8 - 1.3 MG/DL) 1.4 H Glomerular Filtr Rate (>60 estGFR) >=60 max estimate Glucose (70 - 110 MG/DL) 100 POC Glucose (70 - 110 mg/dL) 97 Calcium (8.5 - 10.1 MG/DL) 8.9 Troponin I (0.000 - 0.045 NG/ML) 0.020 Laboratory Tests 01/03 1417 Coagulation INR (0.8 - 1.2 INR Unit) 0.98 PTT (Cloud) (26 - 35 SECONDS) 30.0 PT Patient/Control Mix (9.3 - 12.9 SECONDS) 11.0 Laboratory Tests 01/03 1417 Hematology WBC (3.5 - 11.0 K/mm3) 5.1 RBC (4.70 - 6.10 M/mm3) 5.68 Hgb (12.3 - 15.9 G/DL) 14.3 Hct (35.8 - 46.7 %) 46.5 MCV (86.3 - 98.9 Fl) 81.9 L MCH (28.9 - 34.4 pg) 25.2 L MCHC (32.1 - 34.5 G/DL) 30.8 L RDW (11.5 - 14.5 SD) 16.6 H Plt Count (150 - 450 K/mm3) 198 MPV (7.0 - 9.6 fL) 10.30 H Laboratory Tests 01/03 1434 Serology SARS-CoV-2 Ag (Rapid) (Negative) NEGATIVE Radiology Data: Recent Impressions: CAT SCAN - CT HEAD/BRAIN W/O CONT 01/03 1408 Report Impression - Status: SIGNED Entered: 01/03/2021 1423 IMPRESSION: No acute intracranial abnormality identified. Discussed with Dr. Alfaro at 1419 on 01/03/2021. Impression By: Nataliya Garibay M.D. CAT SCAN - CT ANGIO HEAD 01/03 1420 Report Impression - Status: SIGNED Entered: 01/03/2021 1457 IMPRESSION: Normal head and neck CTA. Impression By: Jennifer Mayer M.D. CAT SCAN - CT ANGIO NECK 01/03 1426 Report Impression - Status: SIGNED Entered: 01/03/2021 1457 IMPRESSION: Normal head and neck CTA. Impression By: Jennifer Mayer M.D. RADIOLOGY - XR CHEST 1 V 01/03 1515 Report Impression - Status: SIGNED Entered: 01/03/2021 1729 IMPRESSION: Cardiomegaly with diffuse congestive changes bilaterally. Impression By: Luzmaria Zabala M.D. Results: labs reviewed, vital signs stable, CT personally reviewed, current med profile rev'd Treatment Prophylaxis IV Thrombolytic Therapy Exclusion criteria: No exclusions Diagnosis, Assessment Plan Free Text DxA P Notes Free text DxA P notes: acute embolic stroke, likely of cardiac origin s/p TPA with marked improvement uncontrolled HTN controlled DM obesity Keep BP in the high normal range suportive care otherwise consider anticoagulation once out of the acute stage at 1956 RPT #: [id number] END OF REPORT [facility] 2021-01-03 16:41:00 [facility] ([facility]) Cardiology Consultation REPORT#:[id number] REPORT STATUS: Signed DATE:01/03/21 TIME:1641 PATIENT: BRYAN PARADA UNIT #: [id number] ROOM/BED: [place] [id number] : [birth year] AGE: 55 SEX: M ATTEND: Yared Scott MD ADM AUTHOR: Anaya Nieto MD * ALL edits or amendments must be made on the electronic/computer document * History of Present Illness HPI Chief complaint: left sided weakness Free Text HPI Notes Free Text HPI Notes: A 55 YOAAM who came to ER with left sided weakness and was treated with TPA. His PMH is significant for HTN, HLP, CHF with EF 19% and morbid obesity. History - Adult longitudinal Past medical history: Reports: Congestive heart failure, Hypertension. Additional medical history: Hypercholesterolemia, coronary artery disease Additional surgical history: Status post AICD/PPM Additional family history: Mother and father both with unknown cancers Smoking status: Smoking status for patients 13 years old or older: Unknown,if ever smoked Allergies: Coded Allergies: No Known Allergies (11/30/20) Free text [facility] notes: Unemployed Lives alone Does not smoke tobacco, drink alcohol, or consume any illicit drugs Review of Systems Constitutional: Denies: chills, fatigue, fever. Respiratory: Denies: DELGADO (dyspnea on exertion), SOB. Cardiovascular: Denies: chest pain. GI: Denies: abdominal pain. Neuro: focal weakness. 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 CVA (cerebral vascular accident) 2. Acute CVA (cerebrovascular accident) 3. Hypertensive urgency 4. Chest pain 5. CHF (congestive heart failure) 6. Diabetes mellitus 7. Hypertension 8. Dyslipidemia 9. Elevated troponin I level Free Text DxA P Notes Free Text DxA P Notes: 1) Acute CVA S/P TPA: improved left sided weakness; defer to neurology, head and neck CTA unremarable except for thyroid nodule 2) CHF: systolic, euvolemic, S/P ICD 3) EchO EF <20%, MILD-MOD MR 4) HTN: medical therapy 5) Morbid obesity Continue medical management and Rehab at 1052 RPT #: [id number] END OF REPORT [facility] 2021-01-03 16:09:00 [facility] ([facility]) Pulmonary Consultation Note REPORT#:[id number] REPORT STATUS: Signed DATE:01/03/21 TIME:1609 PATIENT: BRYAN PARADA UNIT #: [id number] ROOM/BED: [place] [address] : 67 AGE: 55 SEX: M ATTEND: Yared Scott MD ADM AUTHOR: Rolando Napier * ALL edits or amendments must be made on the electronic/computer document * History of Present Illness HPI HPI: 55-year-old male with a past medical history of CAD status post prior stents, heart failure EF less than 20% status post AICD/PPM, hypertension, hyperlipidemia, diabetes mellitus, metabolic syndrome, obesity, and recent strokes who presents to [facility] with acute onset of left-sided weakness today. Of note patient was seen last month at [facility] for TIA without any findings of acute lesions and eventually discharged on aspirin, statin. On arrival to the ED patient received TPA with now improved left-sided weakness. Pulmonary critical care consulted for ICU management. Patient is seen alert, comfortable on room air, and hemodynamically stable. CT brain and CTA of head/ neck unremarkable for abnormal findings. Patient denies fever, chills, chest pain, cough, hemoptysis, abdominal pain, nausea, vomiting, diarrhea, and any obvious bleeding. He does report mild dyspnea. Does appear to have some bloody secretions orally with poor dentition. History - Adult longitudinal Past medical history: Reports: Congestive heart failure, Hypertension. Additional medical history: Hypercholesterolemia, coronary artery disease Additional surgical history: Status post AICD/PPM Additional family history: Mother and father both with unknown cancers Smoking status: Smoking status for patients 13 years old or older: Unknown,if ever smoked Allergies: Coded Allergies: No Known Allergies (11/30/20) Free text [facility] notes: Unemployed Lives alone Does not smoke tobacco, drink alcohol, or consume any illicit drugs Review of Systems Constitutional: Reports: fatigue. Denies: chills, fever. Skin: Denies: abrasion, bruising. Allergy/Immun: Denies: allergic reaction, anaphylaxis. Eyes: Denies: eye pain, swelling. ENT: Denies: throat swelling, tongue swelling. Respiratory: Reports: DELGADO (dyspnea on exertion). Denies: pleuritic pain. Cardiovascular: Reports: DELGADO (dyspnea on exertion), orthopnea. Denies: chest pain. GI: Denies: abdominal pain, anorexia. : Denies: dysuria, flank pain. Heme: Denies: bruising, petechiae. Endocrine: Denies: cold intolerance, heat intolerance. Neuro: Denies: bladder dysfunction, bowel dysfunction. Psych: Denies: agitation, anxiety. 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, 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 X 3 Results Findings/Data: Laboratory Tests 01/03/21 1417: [Embedded Image Not Available] Laboratory Tests 01/03 141 Chemistry Sodium (134 - 147 mmol/L) 142 Potassium (3.4 - 5.0 mmol/L) 3.8 Chloride (100 - 108 mmol/L) 107 Carbon Dioxide (21 - 32 mmol/L) 26 Anion Gap (4.0 - 15.0 GAP calc) 9.0 BUN (7 - 18 MG/DL) 26 H Creatinine (0.8 - 1.3 MG/DL) 1.4 H Glomerular Filtr Rate (>60 estGFR) >=60 max estimate Glucose (70 - 110 MG/DL) 100 Calcium (8.5 - 10.1 MG/DL) 8.9 Troponin I (0.000 - 0.045 NG/ML) 0.020 Laboratory Tests 01/03 1417 Coagulation INR (0.8 - 1.2 INR Unit) 0.98 PTT (Cloud) (26 - 35 SECONDS) 30.0 PT Patient/Control Mix (9.3 - 12.9 SECONDS) 11.0 Laboratory Tests 01/03 1417 Hematology WBC (3.5 - 11.0 K/mm3) 5.1 RBC (4.70 - 6.10 M/mm3) 5.68 Hgb (12.3 - 15.9 G/DL) 14.3 Hct (35.8 - 46.7 %) 46.5 MCV (86.3 - 98.9 Fl) 81.9 L MCH (28.9 - 34.4 pg) 25.2 L MCHC (32.1 - 34.5 G/DL) 30.8 L RDW (11.5 - 14.5 SD) 16.6 H Plt Count (150 - 450 K/mm3) 198 MPV (7.0 - 9.6 fL) 10.30 H Laboratory Tests 01/03 1434 Serology SARS-CoV-2 Ag (Rapid) (Negative) NEGATIVE Radiology Data: Recent Impressions: CAT SCAN - CT HEAD/BRAIN W/O CONT 01/03 1408 Report Impression - Status: SIGNED Entered: 01/03/2021 1423 IMPRESSION: No acute intracranial abnormality identified. Discussed with Dr. Alfaro at 1419 on 01/03/2021. Impression By: [email or web address] - Vernon Garibay M.D. CAT SCAN - CT ANGIO HEAD 01/03 1420 Report Impression - Status: SIGNED Entered: 01/03/2021 1457 IMPRESSION: Normal head and neck CTA. Impression By: Jennifer Mayer M.D. CAT SCAN - CT ANGIO NECK 01/03 1426 Report Impression - Status: SIGNED Entered: 01/03/2021 1457 IMPRESSION: Normal head and neck CTA. Impression By: Jennifer Mayer M.D. Diagnosis, Assessment Plan Free Text DxA P Notes Free Text DxA P Notes: Assessment CVA versus TIA Heart failure reduced EF, EF less than 25% status post AICD CKD versus GIUSEPPE Hypertension CAD Plan Alert, oriented CTA neck/head and CT brain unremarkable Pending MRI brain Left-sided weakness improved status post TPA Neurology following Hemodynamically stable Follow-up repeat echo, chest x-ray, and BNP; reassess diuretic needs, will likely need to restart soon Consult cardiology Comfortable on room air Monitor renal function, pending UA DVT prophylaxis SCDs Anticoagulation per neurology, follow-up recommendations at 1624 RPT #: [id number] END OF REPORT [facility] 2021-01-03 16:09:00 [facility] ([facility]) Pulmonary Consultation Note REPORT#:[id number] REPORT STATUS: Signed DATE:01/03/21 TIME:1609 PATIENT: BRYAN PARADA UNIT #: [id number] [address] : [birth year] AGE: 55 SEX: M ATTEND: Yared Scott MD ADM AUTHOR: Rolando Napier * ALL edits or amendments must be made on the electronic/computer document * See Addendum History of Present Illness HPI HPI: 55-year-old male with a past medical history of CAD status post prior stents, heart failure EF less than 20% status post AICD/PPM, hypertension, hyperlipidemia, diabetes mellitus, metabolic syndrome, obesity, and recent strokes who presents to [facility] with acute onset of left-sided weakness today. Of note patient was seen last month at [facility] for TIA without any findings of acute lesions and eventually discharged on aspirin, statin. On arrival to the ED patient received TPA with now improved left-sided weakness. Pulmonary critical care consulted for ICU management. Patient is seen alert, comfortable on room air, and hemodynamically stable. CT brain and CTA of head/ neck unremarkable for abnormal findings. Patient denies fever, chills, chest pain, cough, hemoptysis, abdominal pain, nausea, vomiting, diarrhea, and any obvious bleeding. He does report mild dyspnea. Does appear to have some bloody secretions orally with poor dentition. History - Adult longitudinal Past medical history: Reports: Congestive heart failure, Hypertension. Additional medical history: Hypercholesterolemia, coronary artery disease Additional surgical history: Status post AICD/PPM Additional family history: Mother and father both with unknown cancers Smoking status: Smoking status for patients 13 years old or older: Unknown,if ever smoked Allergies: Coded Allergies: No Known Allergies (11/30/20) Free text [facility] notes: Unemployed Lives alone Does not smoke tobacco, drink alcohol, or consume any illicit drugs Review of Systems Constitutional: Reports: fatigue. Denies: chills, fever. Skin: Denies: abrasion, bruising. Allergy/Immun: Denies: allergic reaction, anaphylaxis. Eyes: Denies: eye pain, swelling. ENT: Denies: throat swelling, tongue swelling. Respiratory: Reports: DELGADO (dyspnea on exertion). Denies: pleuritic pain. Cardiovascular: Reports: DELGADO (dyspnea on exertion), orthopnea. Denies: chest pain. GI: Denies: abdominal pain, anorexia. : Denies: dysuria, flank pain. Heme: Denies: bruising, petechiae. Endocrine: Denies: cold intolerance, heat intolerance. Neuro: Denies: bladder dysfunction, bowel dysfunction. Psych: Denies: agitation, anxiety. 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, 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 X 3 Results Findings/Data: Laboratory Tests 01/03/21 1417: [Embedded Image Not Available] Laboratory Tests 01/03 1417 Chemistry Sodium (134 - 147 mmol/L) 142 Potassium (3.4 - 5.0 mmol/L) 3.8 Chloride (100 - 108 mmol/L) 107 Carbon Dioxide (21 - 32 mmol/L) 26 Anion Gap (4.0 - 15.0 GAP calc) 9.0 BUN (7 - 18 MG/DL) 26 H Creatinine (0.8 - 1.3 MG/DL) 1.4 H Glomerular Filtr Rate (>60 estGFR) >=60 max estimate Glucose (70 - 110 MG/DL) 100 Calcium (8.5 - 10.1 MG/DL) 8.9 Troponin I (0.000 - 0.045 NG/ML) 0.020 Laboratory Tests 01/03 1417 Coagulation INR (0.8 - 1.2 INR Unit) 0.98 PTT (Terrance) (26 - 35 SECONDS) 30.0 PT Patient/Control Mix (9.3 - 12.9 SECONDS) 11.0 Laboratory Tests 01/03 1417 Hematology WBC (3.5 - 11.0 K/mm3) 5.1 RBC (4.70 - 6.10 M/mm3) 5.68 Hgb (12.3 - 15.9 G/DL) 14.3 Hct (35.8 - 46.7 %) 46.5 MCV (86.3 - 98.9 Fl) 81.9 L MCH (28.9 - 34.4 pg) 25.2 L MCHC (32.1 - 34.5 G/DL) 30.8 L RDW (11.5 - 14.5 SD) 16.6 H Plt Count (150 - 450 K/mm3) 198 MPV (7.0 - 9.6 fL) 10.30 H Laboratory Tests 01/03 1434 Serology SARS-CoV-2 Ag (Rapid) (Negative) NEGATIVE Radiology Data: Recent Impressions: CAT SCAN - CT HEAD/BRAIN W/O CONT 01/03 1408 Report Impression - Status: SIGNED Entered: 01/03/2021 1423 IMPRESSION: No acute intracranial abnormality identified. Discussed with Dr. Alfaro at 1419 on 01/03/2021. Impression By: [email or web address] - Vernon Garibay M.D. CAT SCAN - CT ANGIO HEAD 01/03 1420 Report Impression - Status: SIGNED Entered: 01/03/2021 1457 IMPRESSION: Normal head and neck CTA. Impression By: [email or web address] - Dagoberto Mayer M.D. CAT SCAN - CT ANGIO NECK 01/03 1426 Report Impression - Status: SIGNED Entered: 01/03/2021 1457 IMPRESSION: Normal head and neck CTA. Impression By: Jennifer Mayer M.D. Diagnosis, Assessment Plan Free Text DxA P Notes Free Text DxA P Notes: Assessment CVA versus TIA Heart failure reduced EF, EF less than 25% status post AICD CKD versus GIUSEPPE Hypertension CAD Plan Alert, oriented CTA neck/head and CT brain unremarkable Pending MRI brain Left-sided weakness improved status post TPA Neurology following Hemodynamically stable Follow-up repeat echo, chest x-ray, and BNP; reassess diuretic needs, will likely need to restart soon Consult cardiology Comfortable on room air Monitor renal function, pending UA DVT prophylaxis SCDs Anticoagulation per neurology, follow-up recommendations at 1624 Addendum 1: 01/03/21 1626 by Rolando Napier PT/OT/speech/CM consulted at 1626 RPT #: [id number] END OF REPORT [facility] 2021-01-03 16:09:00 [facility] ([facility]) Pulmonary Consultation Note REPORT#:[id number] REPORT STATUS: Signed DATE:01/03/21 TIME:1609 PATIENT: BRYAN PARADA UNIT #: [id number] ROOM/BED: [place] [address] : 66 AGE: 55 SEX: M ATTEND: Yared Scott MD ADM AUTHOR: Rolando Napier * ALL edits or amendments must be made on the electronic/computer document * See Addendum Rolando Napier 01/03/21 1609: History of Present Illness HPI HPI: 55-year-old male with a past medical history of CAD status post prior stents, heart failure EF less than 20% status post AICD/PPM, hypertension, hyperlipidemia, diabetes mellitus, metabolic syndrome, obesity, and recent strokes who presents to [facility] with acute onset of left-sided weakness today. Of note patient was seen last month at [facility] for TIA without any findings of acute lesions and eventually discharged on aspirin, statin. On arrival to the ED patient received TPA with now improved left-sided weakness. Pulmonary critical care consulted for ICU management. Patient is seen alert, comfortable on room air, and hemodynamically stable. CT brain and CTA of head/ neck unremarkable for abnormal findings. Patient denies fever, chills, chest pain, cough, hemoptysis, abdominal pain, nausea, vomiting, diarrhea, and any obvious bleeding. He does report mild dyspnea. Does appear to have some bloody secretions orally with poor dentition. History - Adult longitudinal Past medical history: Reports: Congestive heart failure, Hypertension. Additional medical history: Hypercholesterolemia, coronary artery disease Additional surgical history: Status post AICD/PPM Additional family history: Mother and father both with unknown cancers Smoking status: Smoking status for patients 13 years old or older: Unknown,if ever smoked Allergies: Coded Allergies: No Known Allergies (11/30/20) Free text PMH notes: Unemployed Lives alone Does not smoke tobacco, drink alcohol, or consume any illicit drugs Review of Systems Constitutional: Reports: fatigue. Denies: chills, fever. Skin: Denies: abrasion, bruising. Allergy/Immun: Denies: allergic reaction, anaphylaxis. Eyes: Denies: eye pain, swelling. ENT: Denies: throat swelling, tongue swelling. Respiratory: Reports: DELGADO (dyspnea on exertion). Denies: pleuritic pain. Cardiovascular: Reports: DELGADO (dyspnea on exertion), orthopnea. Denies: chest pain. GI: Denies: abdominal pain, anorexia. : Denies: dysuria, flank pain. Heme: Denies: bruising, petechiae. Endocrine: Denies: cold intolerance, heat intolerance. Neuro: Denies: bladder dysfunction, bowel dysfunction. Psych: Denies: agitation, anxiety. 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, oriented X 3 Results Findings/Data: Laboratory Tests 01/03/21 1417: [Embedded Image Not Available] Laboratory Tests 01/03 1417 Chemistry Sodium (134 - 147 mmol/L) 142 Potassium (3.4 - 5.0 mmol/L) 3.8 Chloride (100 - 108 mmol/L) 107 Carbon Dioxide (21 - 32 mmol/L) 26 Anion Gap (4.0 - 15.0 GAP calc) 9.0 BUN (7 - 18 MG/DL) 26 H Creatinine (0.8 - 1.3 MG/DL) 1.4 H Glomerular Filtr Rate (>60 estGFR) >=60 max estimate Glucose (70 - 110 MG/DL) 100 Calcium (8.5 - 10.1 MG/DL) 8.9 Troponin I (0.000 - 0.045 NG/ML) 0.020 Laboratory Tests 01/03 1417 Coagulation INR (0.8 - 1.2 INR Unit) 0.98 PTT (Cloud) (26 - 35 SECONDS) 30.0 PT Patient/Control Mix (9.3 - 12.9 SECONDS) 11.0 Laboratory Tests 01/03 1417 Hematology WBC (3.5 - 11.0 K/mm3) 5.1 RBC (4.70 - 6.10 M/mm3) 5.68 Hgb (12.3 - 15.9 G/DL) 14.3 Hct (35.8 - 46.7 %) 46.5 MCV (86.3 - 98.9 Fl) 81.9 L MCH (28.9 - 34.4 pg) 25.2 L MCHC (32.1 - 34.5 G/DL) 30.8 L RDW (11.5 - 14.5 SD) 16.6 H Plt Count (150 - 450 K/mm3) 198 MPV (7.0 - 9.6 fL) 10.30 H Laboratory Tests 01/03 143 Serology SARS-CoV-2 Ag (Rapid) (Negative) NEGATIVE Radiology Data: Recent Impressions: CAT SCAN - CT HEAD/BRAIN W/O CONT 01/03 1408 Report Impression - Status: SIGNED Entered: 01/03/2021 1423 IMPRESSION: No acute intracranial abnormality identified. Discussed with Dr. Alfaro at 1419 on 01/03/2021. Impression By: Nataliya Garibay M.D. CAT SCAN - CT ANGIO HEAD 01/03 1420 Report Impression - Status: SIGNED Entered: 01/03/2021 1457 IMPRESSION: Normal head and neck CTA. Impression By: Jennifer Mayer M.D. CAT SCAN - CT ANGIO NECK 01/03 1426 Report Impression - Status: SIGNED Entered: 01/03/2021 1457 IMPRESSION: Normal head and neck CTA. Impression By: Jennifer Mayer M.D. Diagnosis, Assessment Plan Free Text DxA P Notes Free Text DxA P Notes: Assessment CVA versus TIA Heart failure reduced EF, EF less than 25% status post AICD CKD versus GIUSEPPE Hypertension CAD Plan Alert, oriented CTA neck/head and CT brain unremarkable Pending MRI brain Left-sided weakness improved status post TPA Neurology following Hemodynamically stable Follow-up repeat echo, chest x-ray, and BNP; reassess diuretic needs, will likely need to restart soon Consult cardiology Comfortable on room air Monitor renal function, pending UA DVT prophylaxis SCDs Anticoagulation per neurology, follow-up recommendations Álvaro Becerra 01/03/21 1941: Diagnosis, Assessment Plan Free Text DxA P Notes Free Text DxA P Notes: Seen ,examined , S/P TPA Momitor closely Patient to be Evaluated with MRI Neuro eval Close ICU monitoring today CC time 32 min at 1624 at 1943 Addendum 1: 01/03/21 1626 by Rolando Napier PT/OT/speech/CM consulted at 1626 RPT #: [id number] END OF REPORT [facility] 2021-01-03 15:13:00 [id number] [facility] [id number] [place] [address] PATIENT NAME: BRYAN PARADA ADMIT DATE: 01/03/21 ACCOUNT NO: [id number] ROOM NO: [facility] AGE: 55 REPORT TYPE: eELECTROCARDIOGRAM SEX: M ADMITTING PHYSICIAN: Yared Scott MD ATTENDING PHYSICIAN: Yared Scott MD Order: [id number] Test Reason : (Not Selected) Test Date/Time Stamp: ThuJan 03 2021 15:13:24 Blood Pressure : 148/088 mmHG Vent. Rate : 074 BPM Atrial Rate : 074 BPM P-R Int : 000 ms QRS Dur : 192 ms QT Int : 500 ms P-R-T Axes : 074 239 076 degrees QTc Int : 555 ms Ventricular-paced rhythm Abnormal ECG When compared with ECG of 29-NOV-2020 13:30, Electronic ventricular pacemaker has replaced Sinus rhythm Confirmed by MD Emilia, Anaya ([id number]) on 02/04/2021 5:17:21 PM Referred By: Self Referred Confirmed by:Anaya Nieto MD at 1717 PATIENT NAME: BRYAN PARADA [facility] 2021-01-03 15:06:00 [facility] ([facility] History Physical REPORT#:[id number] REPORT STATUS: Signed DATE:01/03/21 TIME:1506 PATIENT: BRYAN PARADA UNIT #: [id number] ROOM/BED: ICU03-1 : 67 AGE: 55 SEX: M ATTEND: Yared Scott MD ADM AUTHOR: Yared Scott MD * ALL edits or amendments must be made on the electronic/computer document * History of Present Illness HPI Chief complaint: Left-sided weakness HPI: 55-yo AAM with past medical history of hypertension, hyperlipidemia, CKD stage II, congestive heart failure with an EF of 19%, history of CAD and obesity, came to ER with left-sided weakness with insidious onset started at noon and was administered TPA for code stroke. Patient is being admitted for further management. Patient states that he has been doing good when all of a sudden he started having weakness and heaviness on the left side of the body. Denies any headache. Denies any chest pain or shortness of breath. No fever or chills No headaches CVA before Patient was assessed in the ER and was code stroke was called and was administered TPA and was admitted to the ICU for further management History Past Medical Surgical Hx Additional medical history: Hypercholesterolemia, coronary artery disease, hypertension, CHF Additional surgical history: AICD Family History Family history: Reports: Hypertension. Social History Smoking status: Smoking status for patients 13 years old or older: Former Smoker Medication/Allergy-Vaccine Hx Allergies: Coded Allergies: No Known Allergies (11/30/20) Review of Systems Free Text ROS Notes Free Text ROS Notes: Other 14 point review systems negative except for those mentioned HPI Physical Exam VS/I O: General VS: Last Documented: Result Date Time Pulse Ox 95 01/03 1845 B/P 136/91 01/03 1845 B/P Mean 109 01/03 184 Pulse 72 01/03 1845 Resp 17 01/03 184 Temp 36.1 01/03 1620 O2 Delivery Room air 01/03 1600 Physical Exam General appearance: obese, alert, awake Head/Eyes: atraumatic, normocephalic ENT: moist mucosal membranes Neck: supple/no meningismus Cardiovascular: normal heart sounds, regular rate rhythm Respiratory: aerating well, symmetric expansion Abdomen: soft, no distention Genitourinary: no bladder distention Rectal: deferred Extremities: decreased range of motion, no edema Musculoskeletal: decreased ROM 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: left hemiparesis, alert, oriented X 3 Skin: dry, no rash Lymphatics: no lymphadenopathy Psychiatry: anxious Results Findings/Data: Laboratory Tests 01/03/21 1417: [Embedded Image Not Available] Laboratory Tests: 01/03 01/03 1434 1417 Chemistry Sodium (134 - 147 mmol/L) 142 Potassium (3.4 - 5.0 mmol/L) 3.8 Chloride (100 - 108 mmol/L) 107 Carbon Dioxide (21 - 32 mmol/L) 26 Anion Gap (4.0 - 15.0 GAP calc) 9.0 BUN (7 - 18 MG/DL) 26 H Creatinine (0.8 - 1.3 MG/DL) 1.4 H Glomerular Filtr Rate (>60 estGFR) >=60 max estimate Glucose (70 - 110 MG/DL) 100 Calcium (8.5 - 10.1 MG/DL) 8.9 Troponin I (0.000 - 0.045 NG/ML) 0.020 Coagulation INR (0.8 - 1.2 INR Unit) 0.98 PTT (Cloud) (26 - 35 SECONDS) 30.0 PT Patient/Control Mix (9.3 - 12.9 SECONDS) 11.0 Hematology WBC (3.5 - 11.0 K/mm3) 5.1 RBC (4.70 - 6.10 M/mm3) 5.68 Hgb (12.3 - 15.9 G/DL) 14.3 Hct (35.8 - 46.7 %) 46.5 MCV (86.3 - 98.9 Fl) 81.9 L MCH (28.9 - 34.4 pg) 25.2 L MCHC (32.1 - 34.5 G/DL) 30.8 L RDW (11.5 - 14.5 SD) 16.6 H Plt Count (150 - 450 K/mm3) 198 MPV (7.0 - 9.6 fL) 10.30 H Serology SARS-CoV-2 Ag (Rapid) (Negative) NEGATIVE Laboratory Tests 01/03/21 1417: [Embedded Image Not Available] Radiology data: Recent Impressions: CAT SCAN - CT HEAD/BRAIN W/O CONT 01/03 1408 Report Impression - Status: SIGNED Entered: 01/03/2021 1423 IMPRESSION: No acute intracranial abnormality identified. Discussed with Dr. Alfaro at 1419 on 01/03/2021. Impression By: Nataliya Garibay M.D. CAT SCAN - CT ANGIO HEAD 01/03 1420 Report Impression - Status: SIGNED Entered: 01/03/2021 1457 IMPRESSION: Normal head and neck CTA. Impression By: Jennifer Mayer M.D. CAT SCAN - CT ANGIO NECK 01/03 1426 Report Impression - Status: SIGNED Entered: 01/03/2021 1457 IMPRESSION: Normal head and neck CTA. Impression By: Jennifer Mayer M.D. Diagnosis, Assessment Plan Problem List/A P: 1. Acute CVA (cerebrovascular accident) Free Text A P: Acute CVA with left-sided weakness Accelerated hypertension Acute kidney injury on chronic systolic CHF with EF less than 20% status post AICD Chronic kidney disease stage II History of CAD Plan Monitor under telemetry Neuro vital signs CT showed no acute changes CTA findings noted Status post TPA We will admit to ICU Neurology consulted We will get a MRI of the brain Permissible hypertension We will monitor renal parameters Electrolytes monitor and replace accordingly Continue home medications and titrate as needed We will get an echocardiogram GI/DVT prophylaxis Advanced directive full code discussed with the patient Total critical care time used was more than 30 minutes at 1148 RPT #: [id number] END OF REPORT [facility] 2021-01-03 14:09:00 [facility] ([facility]) EMERGENCY PROVIDER REPORT REPORT#:[id number] REPORT STATUS: Signed DATE:01/03/21 TIME:1408 PATIENT: BRYAN PARADA UNIT #: [id number] ROOM/BED: [place] [address] : 66 AGE: 55 SEX: M PCP PHYS: No Primary or Family Physician SERVICE AUTHOR: Musa Alfaro DO * ALL edits or amendments must be made on the electronic/computer document * HPI-Stroke/CVA Free Text HPI Notes Free Text HPI Notes Patient is a 55-year-old male with past medical history of hypertension, congestive heart failure with an EF of 19%, obesity, who presents emergency department with left-sided weakness that began at noon today. Patient is a poor historian because of somnolence and some mild confusion. General Initial Greet Date/Time 01/03/21 1402 )( Stroke Notification Alert Advance Notification by EMS? Yes Date Alert Received 01/03/21 Risk-Stroke/CVA Risk Stratification )( Initial NIH Stroke Scale )( Initial NIH Stroke Scale Response Value NIHSS Applicable? Yes 0 Level of Consciousness Not alert, arousable (1) 1 Ask Month Age Both questions right (0) 0 Blink Eyes/Squeeze Hands Performs both tasks (0) 0 Horizontal EOM NL side/side eye mvmt (0) 0 Visual Fuchs No visual loss (0) 0 Facial Palsy Normal symmetry (0) 0 Right Arm Motor Drift (10s) No drift 10 sec (0) 0 Left Arm Motor Drift (10s) Drift, not touch bed (1) 1 Right Leg Motor Drift (5s) No drift 5 sec (0) 0 Left Leg Motor Drift (5s) Drift, not touch bed (1) 1 Limb Ataxia FNF/Heel-Waite No ataxia (0) 0 Sensation (Arms/Legs/Face) No sensory loss (0) 0 Language Aphasia No aphasia, normal (0) 0 Dysarthria No dysarthria (0) 0 Extinction/Inattention No extinct/inattent (0) 0 Total 3 NIH Stroke Score Timing Time 1402 Date 01/03/21 Free Text Risk Notes Free Text Risk Notes Patient is a potential alteplase candidate, noncontrast CT of the brain is pending Patient is a potential endovascular candidate, CTA head and neck pending Review of Systems ROS Statements Unable to Obtain ROS Altered mental status PMH-Stroke/CVA Stated Complaint FACIAL DROOP Allergies Coded Allergies: No Known Allergies (11/30/20) Home Medications Active Scripts CLOPIDOGREL (PLAVIX) 75 MG PO DAILY 14 Days #14 TAB Prov: 12/05/20 Discontinued Scripts POLYETHYLENE GLYCOL 3350 (MIRALAX) 17 GM PO DAILY PRN PRN CONSTIPATION 14 Days #14 PACKET Prov: 12/05/20 DC: 01/03/21 1419 Therapy completed ASPIRIN 325 MG PO DAILY 14 Days #14 TAB Prov: 12/05/20 DC: 01/03/21 1419 Therapy completed Reported Medications glipiZIDE (GLUCOTROL) 5 MG PO BID SPIRONOLACTONE (ALDACTONE) 25 MG PO DAILY amLODIPine (NORVASC) 10 MG PO DAILY CARVEDILOL (COREG) 25 MG PO BID MEALS POTASSIUM BICARBONATE/CIT AC (EFFER-K 20 MEQ TABLET EFF) 20 MEQ PO DAILY cloNIDine (CATAPRES) 0.2 MG PO Q8H NITROGLYCERIN (NITROSTAT) 0.4 MG SL Q5M PRN PRN CHEST PAIN Discontinued Reported Medications APIXABAN (ELIQUIS) 5 MG PO BID hydrALAZINE (APRESOLINE) 100 MG PO BID LISINOPRIL (ZESTRIL) 20 MG PO DAILY FUROSEMIDE (LASIX) 80 MG PO BID ATORVASTATIN (LIPITOR) 40 MG PO BEDTIME ACETAMINOPHEN/CODEINE (TYLENOL WITH CODEINE #2 300/15 MG) 1 TAB PO Q12H PRN PRN PAIN Review of Nursing Notes Rev avail, and agree Past Medical History: Reports: Congestive heart failure, Hypertension. Additional Medical History Hypercholesterolemia, coronary artery disease Smoking status: Smoking status for patients 13 years old or older: Unknown,if ever smoked Physical Exam Vital Signs Vital Signs First Documented: Result Date Time Pulse Ox 97 / 1405 B/P 160/98 06/ 1405 B/P Mean 118 / 1405 O2 Delivery Room air 01/03 1405 Temp 36.7 / 1405 Pulse 80 06/ 1405 Resp 14 01/03 1405 Last Documented: Result Date Time Pulse Ox 97 06/ 1405 B/P 160/98 06/ 1405 B/P Mean 118 06/ 1405 O2 Delivery Room air 06/ 1405 Temp 36.7 01/03 1405 Pulse 80 06/ 1405 Resp 14 01/03 1405 Review of Vital Signs Reviewed Free Text PE Notes Free Text PE Notes General: Well-nourished, well-developed, cooperative, somnolent Eyes: Normal conjunctiva, PERRL Ear/nose/throat: Atraumatic, airway patent, mucous membranes dry Respiratory: Breath sounds normal, no respiratory distress, no rales, no rhonchi , no wheezing Cardiovascular: Heart rate normal, regular rhythm, heart sounds normal, cap refill not delayed Abdomen: Atraumatic, soft, nontender, no guarding, bowel sounds normal, no distention Musculoskeletal: Head: Atraumatic, normocephalic Neck: Atraumatic, supple Upper extremities: Atraumatic, no swelling Lower extremities: Atraumatic, no swelling Skin: Normal color, no rash, warm, dry, intact Neurologic: Oriented x 2, awake, somnolent, speech normal, weakness in the left upper extremity and the left lower extremity, some mild confusion, mild left- sided facial weakness Psychiatric: Affect normal, mood normal Interpretation Diagnostics Lab Results Interpretation Results Laboratory Tests 01/03/21 1417: [Embedded Image Not Available] Laboratory Tests: 01/03 01/03 1434 1417 Chemistry Sodium (134 - 147 mmol/L) 142 Potassium (3.4 - 5.0 mmol/L) 3.8 Chloride (100 - 108 mmol/L) 107 Carbon Dioxide (21 - 32 mmol/L) 26 Anion Gap (4.0 - 15.0 GAP calc) 9.0 BUN (7 - 18 MG/DL) 26 H Creatinine (0.8 - 1.3 MG/DL) 1.4 H Glomerular Filtr Rate (>60 estGFR) >=60 max estimate Glucose (70 - 110 MG/DL) 100 Calcium (8.5 - 10.1 MG/DL) 8.9 Troponin I (0.000 - 0.045 NG/ML) 0.020 Coagulation INR (0.8 - 1.2 INR Unit) 0.98 PTT (Terrance) (26 - 35 SECONDS) 30.0 PT Patient/Control Mix (9.3 - 12.9 SECONDS) 11.0 Hematology WBC (3.5 - 11.0 K/mm3) 5.1 RBC (4.70 - 6.10 M/mm3) 5.68 Hgb (12.3 - 15.9 G/DL) 14.3 Hct (35.8 - 46.7 %) 46.5 MCV (86.3 - 98.9 Fl) 81.9 L MCH (28.9 - 34.4 pg) 25.2 L MCHC (32.1 - 34.5 G/DL) 30.8 L RDW (11.5 - 14.5 SD) 16.6 H Plt Count (150 - 450 K/mm3) 198 MPV (7.0 - 9.6 fL) 10.30 H Serology SARS-CoV-2 Ag (Rapid) (Negative) NEGATIVE Microbiology: Date/Time Procedure - Status Source Growth 01/03 1504 MRSA Screen - ORD NASAL Recent Impressions: CAT SCAN - CT HEAD/BRAIN W/O CONT 01/03 1408 Report Impression - Status: SIGNED Entered: 01/03/2021 1423 IMPRESSION: No acute intracranial abnormality identified. Discussed with Dr. Alfaro at 1419 on 01/03/2021. Impression By: VikramPEAshley - Vernon Garibay M.D. CAT SCAN - CT ANGIO HEAD 01/03 1420 Report Impression - Status: SIGNED Entered: 01/03/2021 1457 IMPRESSION: Normal head and neck CTA. Impression By: Jennifer Mayer M.D. CAT SCAN - CT ANGIO NECK 01/03 1426 Report Impression - Status: SIGNED Entered: 01/03/2021 1457 IMPRESSION: Normal head and neck CTA. Impression By: [email or web address] - Dagoberto Moreno, M.D. Lab Imaging Statement Laboratory radiographic studies reviewed and considered in the medical decision-making. ECG #1 Interpretation Text/Dict Note EKG performed at 1513, read by me 1513, heart rate is 74, ventricular paced rhythm, negative Sgarbossa criteria Procedures Stroke Thrombolytic Therapy rtPA Administration Yes, admin per protocol MDM-Stroke/CVA Stroke Thrombolytic Therapy Stroke Thrombolytic Therapy Discussed Risks, Benefits, and Alternatives Yes Consent Obtained Patient Intensive Monitoring Performed Yes Administered IV Thrombolytic? Yes Inclusion Criteria Dx of ischemic CVA, Measurable neuro deficit, Age >= 18, Onset < 3 hr before Tx, Baseline CT neg for hem Exclusion Criteria No exclusions ED Course Medication(s) Ordered Medication(s) Ordered: Blood Formation,Coagulation Sig/Mira Start time Last Medication Dose Route Stop Time Status Admin Alteplase, See Dose X1ED STA 01/03 1412 DC 01/03 Recombinant Insts (1) IV 01/03 1413 1429 Cardiovascular Drugs Sig/Mira Start time Last Medication Dose Route Stop Time Status Admin Labetalol HCl 10 MG ASDIR PRN 01/03 1415 AC IV 02/02 1414 Nicardipine HCl 25 MG ASDIR PRN 01/03 1415 AC Sodium Chloride 250 ML IV 02/02 1414 Diagnostic Agents Sig/Mira Start time Last Medication Dose Route Stop Time Status Admin Iopamidol 0 .STK-MED ONE 01/03 1409 DC .ROUTE Electrolytic, Caloric, And Winston Sig/Mira Start time Last Medication Dose Route Stop Time Status Admin Sodium Chloride 50 ML ONCE ONE 01/03 1512 DC /03 IV 01/03 1513 1522 Sodium Chloride 1,000 ML X1ED STA 01/03 1412 DC IV 01/03 1413 Skin And Mucous Membrane Agent Sig/Mira Start time Last Medication Dose Route Stop Time Status Admin Mupirocin 1 APPLIC BID 01/03 1700 AC NASAL 01/08 0901 Dose Instructions: (1)Alteplase, Recombinant: SEE ADMIN CRIT Consultation Consultation 1 Referral/Consult Name Álvaro Becerra MD [employer] Called Cementer Requested Call Time 1501 Requested Call Date 01/03/21 Call Returned Call returned Call Returned Time 1501 Call Returned Date 01/03/21 [employer] Production Manager Will see patient, Agrees with eval, Agrees with plan Consultation 2 Referral/Consult Name ; Jennifer Hackett MD [employer] Manager Called Neurology Requested Call Time 1502 Requested Call Date 01/03/21 Call Returned Call returned Call Returned Time 1502 Call Returned Date 01/03/21 [employer] Production Manager Will see patient, Agrees with eval, Agrees with plan Patient Discharge Departure Vital Signs/Condition Vital Signs First Documented: Result Date Time Pulse Ox 97 06/ 1405 B/P 160/98 06/03 1405 B/P Mean 118 06/03 1405 O2 Delivery Room air 06/ 1405 Temp 36.7 06/ 1405 Pulse 80 06/ 1405 Resp 14 / 1405 Last Documented: Result Date Time Pulse Ox 97 06 1405 B/P 160/98 06/ 1405 B/P Mean 118 06/03 1405 O2 Delivery Room air 06/ 1405 Temp 36.7 06/ 1405 Pulse 80 06/ 1405 Resp 14 01/03 1405 All vital signs available at the time of this entry have been reviewed. Condition Guarded Clinical Impression Clinical Impression Primary Impression: Acute CVA (cerebrovascular accident) Disposition Decision Admit Admit Physician Name Yared Scott MD Admit Physician Hospitalist Request Time 1502 Request Date 01/03/21 )( Admission Accepts Yes )( Accepted Time 1502 )( Accepted Date 01/03/21 Call Information will see patient, agrees with eval, agrees with plan Discharge/Care Plan Counseled Regarding Diagnosis, Imaging studies, Need for admission Critical Care Time Spent (minutes): 30 Services Performed Patient management by me, Time spent at bedside, Reviewing test results, Reviewing imaging, Discussing patient care, Documentation in record Separately billable procedures excluded from time. at 1529 [facility] #: [id number] END OF REPORT [facility] 2020-12-04 13:03:00 [facility] ([facility]) Hospitalist Progress Note REPORT#:[id number] REPORT STATUS: Signed DATE:12/04/20 TIME: 1303 PATIENT: BRYAN PARADA UNIT #: [id number] ROOM/BED: [address] : 67 AGE: 55 SEX: M ATTEND: Benoit Tello MD ADM AUTHOR: Benoit Tello MD * ALL edits or amendments must be made on the electronic/computer document * Subjective Free Text Subj Notes Free Text Subj Notes: Patient is seen and examined in the room. No acute overnight events. He underwent cardiac catheterization today. Review of Systems Free Text ROS Notes Free Text ROS Notes: Review of systems Gen.: No fever, no chills All the 14 systems reviewed except for the ones mentioned above are negative Objective General VS/I O: PATIENT WEIGHT: Weight (lb): 315 Weight (oz): 14.76 Weight (kg): 143.300 Free Text Obj Notes Free Text Obj Notes: Constitutional: Patient is not in pain or discomfort HEENT: Mucous membranes moist, no icterus; left eye prosthesis+ Neck: Trachea midline, no lymphadenopathy Heart: Regular rate and rhythm; no murmurs Lungs: Air entry equal bilateral; no wheezes Abdomen: Soft; nontender; no guarding/tenderness/rebound Extremities: No calf tenderness; no ulcers, no bruises Neurological: Patient is awake,power mildly decreased in the left upper and lower limbs Skin: No rash, no ulcers Psychological: Not agitated Diagnosis, Assessment Plan Free Text DxA P Notes Free text DxA P notes: CAD/Chest pain; s/p cardiac catheterization Patient had a stress test; both echocardiogram and stress test showed global hypokinesis Continue Coreg, statin follow with cardiology recs Heart failure with reduced ejection fraction s/p [employer] AICD/PPM; Chronic, systolic Acute on chronic systolic,compensated at present; TIA with left-sided weakness Stable, continue to monitor CT scan of the head in this hospital did not reveal acute lesions; CT angio neck -nondiagnostic Physical therapy consult/ST/OT; Check lipid panel - LDL 138 c/w aspirin, statin Diabetes mellitus [id number] c/w Sliding scale insulin hypertension stable c.w coreg and amlodipine GI and DVT prophylaxis-Lovenox Discussed with RN at 2343 RPT #:[id number] END OF REPORT [facility] 2020-12-04 11:37:00 [facility] ([facility]) Cath Post Proc - Brief REPORT#:[id number] REPORT STATUS: Signed DATE:12/04/20 TIME: 1137 PATIENT: RONAL PARADADERICK UNIT #: [id number] ROOM/BED: [address] : 67 AGE: 54 SEX: M ATTEND: Benoit Tello MD ADM AUTHOR: Vic Louise MD * ALL edits or amendments must be made on the electronic/computer document * Pre-Procedure Presentation 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 Severe LV systolic dysfunction 2. Abnormal nuclear medicine stress test with inferior ischemia 3. HFrEF, status post ICD placement 07/2020 Post-procedure diagnosis: 1. Minimal luminal irregularities with no obstructive CAD 2. Non-ischemic cardiomyopathy 3. Mildly elevated LVEDP Procedure performed: closure device, diag coronary angiography, left heart cath, ultrasound guided Total contrast volume (mls): 108 Performed by: Vic Louise MD Crystal Cutter(s): none Procedure details: The patient was brought to the cardiac catheterization laboratory in the fasting state. Detailed informed consent was obtained after discussion of the risks, benefits, and alternatives to the procedure. The patient was placed supine on the [employer] table and prepped and draped in usual sterile fashion with plan for right radial arterial access with right femoral backup. A pre-procedural timeout was performed with Dr. Louise within the room. I then ordered moderate sedation with midazolam 2 mg and fentanyl 50 mcg, both IV, which were administered by an independently licensed, specially trained RN who monitored the patient closely throughout the entire procedure. I was present for oyik-on-uleu monitoring from the initiation of sedation through the end of the procedure for a total sedation time of 35 minutes. An additional dose of fentanyl 50 mcg was given IV later in the procedure for the patient's comfort. Patient had no adverse reactions to the medications. The patient's right radial pulse was palpated and right wrist was anesthetized using Xylocaine 1% subcutaneously. Using modified Seldinger technique with needle introducer and guidewire under real-time ultrasound guidance, the patient 's right radial artery was accessed, and a 6 Ethiopian slender hemostasis sheath was advanced over the guide wire into the vessel with good back bleed and flexibility. The patient was given a radial cocktail consisting of verapamil 2 mg and nitroglycerin 200 mcg intra-arterially through the sheath. Heparin 3000 units was given IV once the catheter and wire had been successfully negotiated into the ascending aorta. We then advanced a 5 Ethiopian TIG 4 diagnostic coronary catheter through the sheath over the 0.035 inch J tip guide wire under fluoroscopic guidance to the level of the ascending aorta. The catheter was used in tandem with the wire across the aortic valve to obtain left ventricular pressures. Once obtained, the catheter was pulled back slowly across the aortic valve and used to obtain opening aortic pressure. We then redirected the catheter to the ostium of the RCA, and once engaged, we performed serial automated injections of contrast under cineangiography in multiple views. The catheter was then directed to the ostium of the left main coronary artery and once engaged, we performed multiple automated injections of contrast unders cineangiography in multiple views. The Films were reviewed in real-time in the [employer]. We then advanced the table wire through the catheter and removed both from the arterial sheath. The right radial sheath was flushed with heparinized saline then removed using a large- sized TR band for patent hemostasis without any sign of bleeding, hematoma, or mass formation. Patient had 2+ distal pulse past the TR band after placement. The patient was recovered for short period time on the [employer] table before being moved back to his bed to be taken to the recovery area for further monitoring and removal of the TR band per protocols. The patient tolerated the procedure well without any immediate complications or complaints. We will give him post procedure IV fluids and plan for discharge at approximately 1500 this afternoon. He plans to follow-up with me even though he lives in [place], [place]. We will utilize telehealth for follow-up visits. Findings: Hemodynamics: 1. Opening aortic pressure was 129/102 mmHg with a mean arterial pressure of 114 mmHg. 2. Left ventricular pressures were 133/16 mmHg with an LVEDP of 20 mmHg. There was no significant gradient across the aortic valve upon pullback of the catheter. 3. Closing aortic pressure was 158/96 mmHg with a mean arterial pressure of 118 mmHg. Coronary anatomy findings: 1. This is a co-dominant system. 2. The left main coronary artery is a large caliber vessel that arises normally from the left sinus of Valsalva and trifurcates into a large caliber left anterior descending artery, a large caliber ramus intermedius artery and a large caliber left circumflex artery. The left main is free of any significant disease. 3. The left anterior descending artery is a large caliber vessel that gives rise to a moderate caliber first diagonal branch and 3 small caliber diagonal branches before wrapping the apex in a long segment. There are minimal luminal irregularities and CAMILLE-3 distal flow. 4. The ramus intermedius artery is a large-caliber vessel that demonstrates minimal luminal irregularities and CAMILLE-3 distal flow. 5. The left circumflex artery is a large caliber, co-dominant vessel that gives rise to a moderate to large caliber first obtuse marginal branch, a small caliber second obtuse marginal branch and a small caliber, left posterior descending artery. There are minimal luminal irregularities and TIMI3 distal flow. 6. The right coronary artery is a large caliber, co-dominant vessel that arises anteriorly from the right sinus Valsalva and gives rise to a small caliber right posterior descending artery and 3 small caliber posterolateral branches. The RCA system has minimal luminal irregularities and TIMI3 distal flow. Total sedation time: 35 minutes Total fluoroscopy time: 7.5 minutes Total radiation dose: 1369 mGy Complications: none Anesthesia type: moderate sedation Mod. sedation provided by me: yes Independent trained observer present monitored pt's resp. to the sedation yes Observer name: Name of independent trained observer: YARELIS Baptiste Estimated blood loss in ml's: 10 Disposition: cardiac recovery unit Plan: Plan: medical management, risk factor modification Specimens removed/altered: none at 1156 RPT #:[id number] END OF REPORT [facility] 2020-12-03 22:52:00 [facility] Hospitalist Progress Note REPORT#:[id number] REPORT STATUS: Signed DATE:12/03/20 TIME: 2251 PATIENT: BRYAN PARADA UNIT #: [id number] ROOM/BED: [address] : 67 AGE: 54 SEX: M ATTEND: Benoit Tello MD ADM AUTHOR: Benoit Tello MD * ALL edits or amendments must be made on the electronic/computer document * Subjective Free Text Subj Notes Free Text Subj Notes: Patient is seen and examined in the room. He is awaiting cardiac catheterization today. Review of Systems Free Text ROS Notes Free Text ROS Notes: Review of systems Gen.: No fever, no chills All the 14 systems reviewed except for the ones mentioned above are negative Objective General VS/I O: Vital Signs: Date Time Temp Pulse Resp B/P B/P Pulse O2 O2 Flow FiO2 Mean Ox Delivery Rate 12/04 1210 97.6 69 18 151/85 99 Room air 05/ 1205 68 18 140/92 99 Room air 05/ 1159 69 18 139/90 99 Room air 05/ 1150 97.6 69 18 144/92 97 Room air 05/ 1140 73 18 142/83 99 Room air 05/ 1135 73 18 139/91 99 Room air 05/ 1133 97.6 73 18 151/94 99 Room air 05/ 0822 97.7 72 18 145/99 114.3 98 Room air / 0553 70 149/97 114.7 98 Nasal 1 cannula 12/04 0429 71 159/103 121.6 12/04 0345 69 164/119 133.9 12/04 0338 98.1 65 16 98 Room air 05/03 2313 97.9 65 16 138/83 101.4 96 Room air 05/ 1949 98.4 74 16 136/85 102.2 97 Room air 05/03 1600 98.2 74 16 154/105 121.7 96 Room air 24 hour I O ending at 0700: 04 0700 /03 1900 Intake Total 300 300 Output Total 1250 Balance -950 300 Intake, Oral 300 300 Output, Urine 1250 PATIENT WEIGHT: Weight (lb): 315 Weight (oz): 14.76 Weight (kg): 143.300 Free Text Obj Notes Free Text Obj Notes: Constitutional: Lying in bed comfortably, watching TV HEENT: Mucous membranes moist, no icterus; left eye prosthesis+ Neck: Trachea midline, no lymphadenopathy Heart: Regular rate and rhythm; no murmurs Lungs: Air entry equal bilateral; no wheezes Abdomen: Soft; nontender; no guarding/tenderness/rebound Extremities: No calf tenderness; no ulcers, no bruises Neurological: Patient is awake,power mildly decreased in the left upper and lower limbs Skin: No rash, no ulcers Psychological: Not agitated Diagnosis, Assessment Plan Free Text DxA P Notes Free text DxA P notes: CAD/Chest pain; Awaiting cardiac catheterization Patient had a stress test; both echocardiogram and stress test showed global hypokinesis Continue Coreg, statin Heart failure with reduced ejection fraction s/p Biotronic AICD/PPM; Chronic, systolic Acute on chronic systolic,compensated at present; Present on admission TIA with left-sided weakness Stable, continue to monitor CT scan of the head in this hospital did not reveal acute lesions; CT angio neck -nondiagnostic Physical therapy consult/ST/OT; Check lipid panel - LDL 138 c/w aspirin, statin Diabetes mellitus [id number] c/w Sliding scale insulin hypertension stable c.w coreg and amlodipine GI and DVT prophylaxis-Lovenox Discussed with RN at 1303 RPT #:[id number] END OF REPORT [facility] 2020-12-03 11:16:00 [facility] ([facility] Cardiology Progress Note REPORT#:[id number] REPORT STATUS: Signed DATE:12/03/20 TIME: 1116 PATIENT: BRYAN PARADA UNIT #: [id number] ROOM/BED: [address] : 67 AGE: 54 SEX: M ATTEND: Benoit Tello MD ADM AUTHOR: Vic Louise MD * ALL edits or amendments must be made on the electronic/computer document * Subjective Free Text Subj Notes Free Text Subj Notes: Patient seen and examined prior to cardiac catheterization. He has no complaints except hunger this morning. Objective General VS/I O: 24 hour I O ending at 0700: 12/03 0700 12/02 1900 Intake Total Output Total 600 Balance -600 Output, Urine 600 Vital Signs: Date Time Temp Pulse Resp B/P B/P Pulse O2 O2 Flow FiO2 Mean Ox Delivery Rate 12/03 0754 98.6 70 18 158/111 126.7 97 Room air 12/03 0556 71 168/112 130.7 12/03 0523 62 1 143/92 109.1 97 Room air 12/03 0302 97.9 68 16 151/95 113.4 99 Room air 12/03 0014 98.1 70 16 152/95 114.0 94 Room air 12/02 1925 98.4 71 16 153/105 120.7 97 Room air 12/02 1732 97 Room air 12/02 1528 98.1 67 18 144/99 113.9 98 Room air 12/02 1147 97.9 75 16 151/102 118.6 97 Room air PATIENT WEIGHT: Weight (lb): 315 Weight (oz): 14.76 Weight (kg): 143.300 Medications: Active Meds + DC'd Last 24 Hrs Nitroglycerin 0.4 MG Q5M PRN PRN SL Enoxaparin Sodium 40 MG BEDTIME SUBQ Clopidogrel Bisulfate 75 MG DAILY PO Morphine Sulfate 1 MG Q6H PRN PRN IV Amlodipine Besylate 10 MG DAILY PO Aspirin 325 MG DAILY PO Carvedilol 25 MG BID MEALS PO Atorvastatin Calcium 40 MG BEDTIME PO Acetaminophen 650 MG Q4H PRN PRN PO Acetaminophen 650 MG Q4H PRN PRN PO Dextrose/Water 25 ML ASDIR PRN IV (CKD) Glucagon 1 MG ASDIR PRN IM Glucose Polymer 15 GM ASDIR PRN PO Hydralazine HCl 10 MG Q4H PRN PRN IV Insulin Human Lispro See Admin Criteria ASDIR PRN SUBQ Ondansetron HCl 4 MG Q4H PRN PRN IV Polyethylene Glycol 17 GM DAILY PRN PRN PO Physical Exam General appearance: obese, alert, awake, oriented, no acute distress, pleasant, conversational Head/Eyes: atraumatic (Left eye prosthesis) Neck: no bruit/NL carotids, no JVD Cardiovascular: CV assessment: regular rate and rhythm, normal heart sounds, pedal pulses present Respiratory: clear to auscultation, no distress Abdomen: soft, non-tender Genitourinary: no flank pain, no brown Upper extremity: UE assessment: no clubbing, no cyanosis, no edema Lower extremity: LE assessment: no clubbing, no cyanosis, no edema, 2+ pedal pulse Musculoskeletal: full range of motion, normal inspection 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, 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 X 3 Skin: dry, intact, normal temperature Psychiatry: normal affect, normal judgment/insight, normal mood Results Findings/Data: Laboratory Tests 12/03 12/03 12/03 12/02 0723 0212 3044 [id number] Chemistry Sodium (133 - 144 mmol/L) 139.0 Potassium (3.5 - 5.1 mmol/L) 3.6 Chloride (95 - 105 mmol/L) 108 H Carbon Dioxide (21 - 32 mmol/L) 23 Anion Gap (4.0 - 15.0 GAP calc) 8.0 BUN (7 - 18 MG/DL) 15 Creatinine (0.55 - 1.30 MG/DL) 1.14 Glucose (70 - 110 MG/DL) 95 POC Glucose (70 - 119 MG/DL) 104 130 H Calcium (8.5 - 10.1 MG/DL) 8.6 Magnesium (1.6 - 2.6 MG/DL) 2.2 CK-MB (CK-2) (1.0 - 3.6 NG/ML) 1.1 Troponin I (0.000 - 0.045 NG/ML) 0.031 Specimen Appearance (1 NORMAL Index/DL) 1 NORMAL <2 MG Specimen Hemolysis (1 NORMAL Index/DL) 1 NORMAL <10 MG 12/02 12/02 1624 1148 Chemistry POC Glucose (70 - 119 MG/DL) 103 128 H Laboratory Tests 12/03 12/03 0538 0438 Chemistry Magnesium (1.6 - 2.6 MG/DL) 2.2 CK-MB (CK-2) (1.0 - 3.6 NG/ML) 1.1 Troponin I (0.000 - 0.045 NG/ML) 0.031 Results: labs reviewed, vital signs stable, echo personally reviewed, EKG personally reviewed, rhythm personally rev'd, current med profile rev'd Diagnosis, Assessment Plan Free Text DxA P Notes Free Text DxA P Notes: 1. Chest Pain with abnormal NMST showing inferior ischemia * Plan for LHC/CA done today via right radial arterial access with 6 Ethiopian sheath and TR band for hemostasis. Minimal luminal irregularities noted with no sign of obstructive CAD. LVEDP was mildly elevated at 20 mmHg. * TTE showed EF < 25% * False positive NMST 2. CAD * Hx PCI w/ stents, none appreciated on angiogram today * Continue w/ ASA, Lipitor 3. HTN * Continue Coreg amlodipine 4. HFrEF * Biotronic AICD/PPM 08/02/2020 * Echo results noted 5. Nonischemic cardiomyopathy * Continue guideline directed medical therapy Okay to discharge patient from cardiology standpoint after post-op IV fluids given and right radial access site is stable. He needs outpatient follow-up within 2 weeks. Please call with any questions or concerns. at 1204 RPT #:[id number] END OF REPORT [facility] 2020-12-03 05:46:00 [id number] [address] PATIENT NAME: BRYAN PARADA ADMIT DATE: 11/30/20 ACCOUNT NO: [id number] ROOM NO: [facility] AGE: 54 REPORT TYPE: ELECTROCARDIOGRAM SEX: M ADMITTING PHYSICIAN:Benoit Tello MD ATTENDING PHYSICIAN:Benoit Tello MD Order: [id number] Test Reason : CHEST PAIN Test Date/Time Stamp: ThuDec 03 2020 05:46:06 Blood Pressure : / mmHG Vent. Rate : 066 BPM Atrial Rate : 066 BPM P-R Int : 162 ms QRS Dur : 204 ms QT Int : 528 ms P-R-T Axes : 085 -35 088 degrees QTc Int : 553 ms Atrial-sensed ventricular-paced rhythm Abnormal ECG No previous ECGs available Confirmed by SHAHNAZ DIAS MD ([id number]) on 12/03/2020 6:43:49 AM Referred By: Chuckie Olmos Confirmed by:SHAHNAZ DIAS MD at 0643 PATIENT NAME: BRYAN PARADA [facility] 2020-12-02 14:04:00 [facility] ([facility]) Hospitalist Progress Note REPORT#:[id number] REPORT STATUS: Signed DATE:12/02/20 TIME: 1404 PATIENT: BRYAN PARADA UNIT #: [id number] ROOM/BED: [address] : 67 AGE: 54 SEX: M ATTEND: Benoit Tello MD ADM AUTHOR: Benoit Tello MD * ALL edits or amendments must be made on the electronic/computer document * Subjective Free Text Subj Notes Free Text Subj Notes: Patient is seen and examined in the room. No acute overnight events. He is scheduled for cardiac catheterization in a.m. Review of Systems Free Text ROS Notes Free Text ROS Notes: Review of systems Gen.: No fever, no chills All the 14 systems reviewed except for the ones mentioned above are negative Objective General VS/I O: Vital Signs: Date Time Temp Pulse Resp B/P B/P Pulse O2 O2 Flow FiO2 Mean Ox Delivery Rate 12/04 1210 97.6 69 18 151/85 99 Room air 05/ 1205 68 18 140/92 99 Room air 05/ 1159 69 18 139/90 99 Room air 05/ 1150 97.6 69 18 144/92 97 Room air 05/ 1140 73 18 142/83 99 Room air 05/ 1135 73 18 139/91 99 Room air 05/ 1133 97.6 73 18 151/94 99 Room air / 0822 97.7 72 18 145/99 114.3 98 Room air / 0553 70 149/97 114.7 98 Nasal 1 cannula 12/04 0429 71 159/103 121.6 12/04 0345 69 164/119 133.9 / 0338 98.1 65 16 98 Room air 05/03 2313 97.9 65 16 138/83 101.4 96 Room air 05/ 1949 98.4 74 16 136/85 102.2 97 Room air 05/03 1600 98.2 74 16 154/105 121.7 96 Room air 24 hour I O ending at 0700: 05/04 0700 05/03 1900 Intake Total 300 300 Output Total 1250 Balance -950 300 Intake, Oral 300 300 Output, Urine 1250 PATIENT WEIGHT: Weight (lb): 315 Weight (oz): 14.76 Weight (kg): 143.300 Free Text Obj Notes Free Text Obj Notes: Constitutional: Not in pain or discomfort HEENT: Mucous membranes moist, no icterus; left eye prosthesis noted Neck: Trachea midline, no lymphadenopathy Heart: Regular rate and rhythm; no murmurs Lungs: Air entry equal bilateral; no wheezes Abdomen: Soft; nontender; no guarding/tenderness/rebound Extremities: No calf tenderness; no ulcers, no bruises Neurological: Patient is awake,power mildly decreased in the left upper and lower limbs Skin: No rash, no ulcers Psychological: Not agitated Diagnosis, Assessment Plan Free Text DxA P Notes Free text DxA P notes: CAD/Chest pain; Patient had abnormal stress test global hypokinesis echo also showed global hypokinesis Schedule for possible cardiac catheterization today Continue Coreg, statin Heart failure with reduced ejection fraction s/p Biotronic AICD/PPM; Chronic, systolic Acute on chronic systolic,compensated at present; Present on admission TIA with left-sided weakness CT scan of the head in this hospital did not reveal acute lesions; CT angio neck -nondiagnostic Physical therapy consult/ST/OT; Check lipid panel - LDL 138 c/w aspirin, statin Follow with Teleneurology recommendation Diabetes mellitus [id number] c/w Sliding scale insulin hypertension stable c.w coreg and amlodipine GI and DVT prophylaxis-Lovenox Discussed with RN at 1259 RPT #:[id number] END OF REPORT [facility] 2020-12-02 13:20:00 [facility] Cardiology Progress Note REPORT#:[id number] REPORT STATUS: Signed DATE:12/02/20 TIME: 1320 PATIENT: BRYAN PARADA UNIT #: [id number] ROOM/BED: [facility] : 67 AGE: 54 SEX: M ATTEND: Benoit Tello MD ADM AUTHOR: Elyse Arguello NP * ALL edits or amendments must be made on the electronic/computer document * Subjective Free Text Subj Notes Free Text Subj Notes: Mr. Parada seen at bedside. He denies any new symptoms or concerns. Test results and treatment options discussed with patient. All questions and concerns addressed. Objective General VS/I O: 24 hour I O ending at 0700: 12/02 0700 05 1900 Intake Total Output Total Balance Number Voids 2 Patient 143.3 kg Weight Weight Bed scale Measurement Method Vital Signs: Date Time Temp Pulse Resp B/P B/P Pulse O2 O2 Flow FiO2 Mean Ox Delivery Rate 12/02 1147 97.9 75 16 151/102 118.6 97 Room air 12/02 0819 97.9 75 18 150/108 121.9 98 Room air 12/02 0448 98.1 76 17 153/114 126.9 98 Room air 12/02 0008 97.9 69 18 127/84 98.3 96 Room air 12/01 1957 97.7 73 18 135/90 104.9 97 Room air 12/01 1542 97.9 74 18 157/99 118.2 100 Room air 12/01 1408 75 16 141/92 108.5 95 Room air PATIENT WEIGHT: Weight (lb): 315 Weight (oz): 14.76 Weight (kg): 143.300 Medications: Active Meds + DC'd Last 24 Hrs Clopidogrel Bisulfate 75 MG DAILY PO (DC) Enoxaparin Sodium 40 MG BEDTIME SUBQ Regadenoson 0.4 MG ONCE ONE IV (DC) Clopidogrel Bisulfate 75 MG DAILY PO Morphine Sulfate 1 MG Q6H PRN PRN IV Amlodipine Besylate 10 MG DAILY PO Aspirin 325 MG DAILY PO Carvedilol 25 MG BID MEALS PO Atorvastatin Calcium 40 MG BEDTIME PO Acetaminophen 650 MG Q4H PRN PRN PO Acetaminophen 650 MG Q4H PRN PRN PO Dextrose/Water 25 ML ASDIR PRN IV (CKD) Glucagon 1 MG ASDIR PRN IM Glucose Polymer 15 GM ASDIR PRN PO Hydralazine HCl 10 MG Q4H PRN PRN IV Insulin Human Lispro See Admin Criteria ASDIR PRN SUBQ Ondansetron HCl 4 MG Q4H PRN PRN IV Polyethylene Glycol 17 GM DAILY PRN PRN PO Physical Exam General appearance: alert, awake, oriented Head/Eyes: atraumatic (Left eye prosthesis) Cardiovascular: CV assessment: regular rate and rhythm, normal heart sounds, pedal pulses present Respiratory: clear to auscultation, no distress Abdomen: soft, non-tender Genitourinary: no brown Upper extremity: UE assessment: no clubbing, no cyanosis, no edema Lower extremity: LE assessment: no clubbing, no cyanosis, no edema, 2+ pedal pulse Musculoskeletal: CVA tenderness (HOLLIS) 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 Chest Pain * No 12-lead ECG on chart -ordered. Please place on chart when completed. * Trops so far negative * Lexiscan stress test reveals inferior abnormalities. Plan for cardiac catheterization with coronary angiogram tomorrow morning. Keep NPO after midnight. * Echo (11/30/20): LVEF < 25% w/ severe concentric LVH. Severe global hypokinesis of left ventricle. RVSP elevated at 35-45 mmHg. Left atrium moderately dlated. * Awaiting Biotronic AICD/PPM interrogation. 2. CAD * Hx PCI w/ stents * Continue w/ ASA, Lipitor 3. HTN * Continue Coreg amlodipine 4. HFrEF * Biotronic AICD/PPM 08/02/2020 * Echo as above NPO after midnight for [facility] in AM. Plan of care discussed with patient, nurse, and Dr. Chery. at 1332 RPT #:[id number] END OF REPORT [facility] 2020-12-02 13:20:00 [facility] ([facility] Cardiology Progress Note REPORT#:[id number] REPORT STATUS: Signed DATE:12/02/20 TIME: 1320 PATIENT: BRYAN PARADA UNIT #: [id number] ROOM/BED: .[address]-W : 67 AGE: 54 SEX: M ATTEND: Benoit Tello MD ADM AUTHOR: Elyse Arguello [employer] DEVELOPER * ALL edits or amendments must be made on the electronic/computer document * Elyse Arguello 12/02/20 1320: Subjective Free Text Subj Notes Free Text Subj Notes: Mr. Parada seen at bedside. He denies any new symptoms or concerns. Test results and treatment options discussed with patient. All questions and concerns addressed. Objective General VS/I O: 24 hour I O ending at 0700: 12/02 0700 12/01 1900 Intake Total Output Total Balance Number Voids 2 Patient 143.3 kg Weight Weight Bed scale Measurement Method Vital Signs: Date Time Temp Pulse Resp B/P B/P Pulse O2 O2 Flow FiO2 Mean Ox Delivery Rate 12/02 1147 97.9 75 16 151/102 118.6 97 Room air 12/02 0819 97.9 75 18 150/108 121.9 98 Room air 12/02 0448 98.1 76 17 153/114 126.9 98 Room air 12/02 0008 97.9 69 18 127/84 98.3 96 Room air 12/01 1957 97.7 73 18 135/90 104.9 97 Room air 12/01 1542 97.9 74 18 157/99 118.2 100 Room air 12/01 1408 75 16 141/92 108.5 95 Room air PATIENT WEIGHT: Weight (lb): 315 Weight (oz): 14.76 Weight (kg): 143.300 Medications: Active Meds + DC'd Last 24 Hrs Clopidogrel Bisulfate 75 MG DAILY PO (DC) Enoxaparin Sodium 40 MG BEDTIME SUBQ Regadenoson 0.4 MG ONCE ONE IV (DC) Clopidogrel Bisulfate 75 MG DAILY PO Morphine Sulfate 1 MG Q6H PRN PRN IV Amlodipine Besylate 10 MG DAILY PO Aspirin 325 MG DAILY PO Carvedilol 25 MG BID MEALS PO Atorvastatin Calcium 40 MG BEDTIME PO Acetaminophen 650 MG Q4H PRN PRN PO Acetaminophen 650 MG Q4H PRN PRN PO Dextrose/Water 25 ML ASDIR PRN IV (CKD) Glucagon 1 MG ASDIR PRN IM Glucose Polymer 15 GM ASDIR PRN PO Hydralazine HCl 10 MG Q4H PRN PRN IV Insulin Human Lispro See Admin Criteria ASDIR PRN SUBQ Ondansetron HCl 4 MG Q4H PRN PRN IV Polyethylene Glycol 17 GM DAILY PRN PRN PO Physical Exam General appearance: alert, awake, oriented Head/Eyes: atraumatic (Left eye prosthesis) Cardiovascular: CV assessment: regular rate and rhythm, normal heart sounds, pedal pulses present Respiratory: clear to auscultation, no distress Abdomen: soft, non-tender Genitourinary: no brown Upper extremity: UE assessment: no clubbing, no cyanosis, no edema Lower extremity: LE assessment: no clubbing, no cyanosis, no edema, 2+ pedal pulse Musculoskeletal: CVA tenderness (HOLLIS) 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 Chest Pain * No 12-lead ECG on chart -ordered. Please place on chart when completed. * Trops so far negative * Lexiscan stress test reveals inferior abnormalities. Plan for cardiac catheterization with coronary angiogram tomorrow morning. Keep NPO after midnight. * Echo (11/30/20): LVEF < 25% w/ severe concentric LVH. Severe global hypokinesis of left ventricle. RVSP elevated at 35-45 mmHg. Left atrium moderately dlated. * Awaiting Biotronic AICD/PPM interrogation. 2. CAD * Hx PCI w/ stents * Continue w/ ASA, Lipitor 3. HTN * Continue Coreg amlodipine 4. HFrEF * Biotronic AICD/PPM 08/02/2020 * Echo as above NPO after midnight for [facility] in AM. Plan of care discussed with patient, nurse, and Dr. Chery. Prosper Chery 12/05/202047: Attestations Physician Attestation Agree w/findings plan: CARDIOLOGY ATTENDING ADDENDUM I have discussed the plan of care with the MICROSTRATEGY REPORTS DEVELOPER as reflected on the chart. I verified and agree with the MICROSTRATEGY REPORTS DEVELOPER's findings and plan as documented in the progress note filed in patients chart. Exceptions and clarifications have been noted above in this document. The plan was discussed with the MICROSTRATEGY REPORTS DEVELOPER/PA, nursing staff and resident. Prosper Chery MD., FACP., FACC. Interventional Cardiology at 1332 RPT #:[id number] END OF REPORT [facility] 2020-12-02 13:20:00 [facility] ([facility]) Cardiology Progress Note REPORT#:[id number] REPORT STATUS: Signed DATE:12/02/20 TIME: 1320 PATIENT: BRYAN PARADA UNIT #: [id number] ROOM/BED: [address] : 66 AGE: 54 SEX: M ATTEND: Benoit Tello MD ADM AUTHOR: Elyse Arguello MICROSTRATEGY REPORTS DEVELOPER * ALL edits or amendments must be made on the electronic/computer document * Elyse Arguello 12/02/20 1320: Subjective Free Text Subj Notes Free Text Subj Notes: Mr. Parada seen at bedside. He denies any new symptoms or concerns. Test results and treatment options discussed with patient. All questions and concerns addressed. Objective General VS/I O: 24 hour I O ending at 0700: 12/02 0700 12/01 1900 Intake Total Output Total Balance Number Voids 2 Patient 143.3 kg Weight Weight Bed scale Measurement Method Vital Signs: Date Time Temp Pulse Resp B/P B/P Pulse O2 O2 Flow FiO2 Mean Ox Delivery Rate 12/02 1147 97.9 75 16 151/102 118.6 97 Room air 12/02 0819 97.9 75 18 150/108 121.9 98 Room air 12/02 0448 98.1 76 17 153/114 126.9 98 Room air / 0008 97.9 69 18 127/84 98.3 96 Room air 12/01 1957 97.7 73 18 135/90 104.9 97 Room air 12/01 1542 97.9 74 18 157/99 118.2 100 Room air 12/01 1408 75 16 141/92 108.5 95 Room air PATIENT WEIGHT: Weight (lb): 315 Weight (oz): 14.76 Weight (kg): 143.300 Medications: Active Meds + DC'd Last 24 Hrs Clopidogrel Bisulfate 75 MG DAILY PO (DC) Enoxaparin Sodium 40 MG BEDTIME SUBQ Regadenoson 0.4 MG ONCE ONE IV (DC) Clopidogrel Bisulfate 75 MG DAILY PO Morphine Sulfate 1 MG Q6H PRN PRN IV Amlodipine Besylate 10 MG DAILY PO Aspirin 325 MG DAILY PO Carvedilol 25 MG BID MEALS PO Atorvastatin Calcium 40 MG BEDTIME PO Acetaminophen 650 MG Q4H PRN PRN PO Acetaminophen 650 MG Q4H PRN PRN PO Dextrose/Water 25 ML ASDIR PRN IV (CKD) Glucagon 1 MG ASDIR PRN IM Glucose Polymer 15 GM ASDIR PRN PO Hydralazine HCl 10 MG Q4H PRN PRN IV Insulin Human Lispro See Admin Criteria ASDIR PRN SUBQ Ondansetron HCl 4 MG Q4H PRN PRN IV Polyethylene Glycol 17 GM DAILY PRN PRN PO Physical Exam General appearance: alert, awake, oriented Head/Eyes: atraumatic (Left eye prosthesis) Cardiovascular: CV assessment: regular rate and rhythm, normal heart sounds, pedal pulses present Respiratory: clear to auscultation, no distress Abdomen: soft, non-tender Genitourinary: no brown Upper extremity: UE assessment: no clubbing, no cyanosis, no edema Lower extremity: LE assessment: no clubbing, no cyanosis, no edema, 2+ pedal pulse Musculoskeletal: CVA tenderness (HOLLIS) 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 Chest Pain * No 12-lead ECG on chart -ordered. Please place on chart when completed. * Trops so far negative * Lexiscan stress test reveals inferior abnormalities. Plan for cardiac catheterization with coronary angiogram tomorrow morning. Keep NPO after midnight. * Echo (11/30/20): LVEF < 25% w/ severe concentric LVH. Severe global hypokinesis of left ventricle. RVSP elevated at 35-45 mmHg. Left atrium moderately dlated. * Awaiting Biotronic AICD/PPM interrogation. 2. CAD * Hx PCI w/ stents * Continue w/ ASA, Lipitor 3. HTN * Continue Coreg amlodipine 4. HFrEF * Biotronic AICD/PPM 08/02/2020 * Echo as above NPO after midnight for [facility] in AM. Plan of care discussed with patient, nurse, and Dr. Chery. Prosper Chery 12/05/202047: Attestations Physician Attestation Agree w/findings plan: CARDIOLOGY ATTENDING ADDENDUM I have discussed the plan of care with the MICROSTRATEGY REPORTS DEVELOPER as reflected on the chart. I verified and agree with the MICROSTRATEGY REPORTS DEVELOPER's findings and plan as documented in the progress note filed in patients chart. Exceptions and clarifications have been noted above in this document. The plan was discussed with the MICROSTRATEGY REPORTS DEVELOPER/PA, nursing staff and resident. Prosper Chery MD., FACP., FACC. Interventional Cardiology at 1332 at 2052 RPT #:[id number] END OF REPORT [facility] 2020-12-02 10:40:00 [id number] [place] [address] PATIENT NAME: BRYAN PARADA ADMIT DATE: 11/30/20 ACCOUNT NO: [id number] ROOM NO: [facility] AGE: 54 REPORT TYPE: eCAROTID ULTRASOUND SEX: M ADMITTING PHYSICIAN:Benoit Tello MD ATTENDING PHYSICIAN:Benoit Tello MD Name: KATHE PARADAtudy Date: 12/02/2020 10:40 AMPatient Location: [address] URN: [id number] Gender: Male : 1965 Gender: Male Age: 54 yrs Ethnicity: B Reason For Study: TIA Carotid Smart Chart Right Left PSV EDV PSV EDV cm/sec cm/sec cm/sec cm/sec 38.2 16.3 Dist ICA 65.6 26.2 34.2 9.8 Prox ICA 52.5 19.7 58.1 15.9 Dist CCA 66.7 13.1 103.1 17.2 Prox CCA 135.6 24.1 40.5 16.4 Vertebral A 29.4 9.4 ICA/CCA ratio 0.37 cm/sec 0.48 Interpretation Summary No significant obstructive lesions noted in the right extracranial carotid system. No significant obstructive lesions noted in the left extracranial carotid system. Antegrade flow noted in the vertebral arteries. Right Extracranial There is intimal thickening but no significant atherosclerotic plaque noted in the right common carotid artery. <50% right internal carotid artery stenosis. There is intimal thickening but no significant atherosclerotic plaque noted in the right internal carotid artery. The right internal carotid artery is very tortuous. Antegrade flow is noted in the right vertebral artery. Left Extracranial PATIENT NAME: BRYAN PARADA There is intimal thickening but no significant atherosclerotic plaque noted in the left common carotid artery. <50% left internal carotid artery stenosis. There is intimal thickening but no significant atherosclerotic plaque noted in the left internal carotid artery. The left internal carotid artery is very tortuous. Antegrade flow is noted in the left vertebral artery. Measurements and Calculations Right No Left Unit Laterality CCA ratio sommer 103.1 135.6 cm/sec ICA ratio sommer 38.2 65.1 cm/sec Electronically signed by: Vic Louise MD 12/03/2020 11:35 AM Ordering Physician: Cm Grullon Referring Physician: Chuckie Olmos Performed By: Eloisa Sandoval at 1135 PATIENT NAME: BRYAN PARADA [facility] 2020-12-01 15:18:00 [facility] ([facility] Hospitalist Progress Note REPORT#:[id number] REPORT STATUS: Signed DATE:12/01/20 TIME: 1518 PATIENT: BRYAN PARADA UNIT #: [id number] ROOM/BED: [address] : 67 AGE: 54 SEX: M ATTEND: Benoit Tello MD ADM AUTHOR: Benoit Tello MD * ALL edits or amendments must be made on the electronic/computer document * Subjective Free Text Subj Notes Free Text Subj Notes: Patient is seen and examined in the room. No acute overnight events. He is complaining of intermittent headaches. He had stress with this morning. Review of Systems Free Text ROS Notes Free Text ROS Notes: Review of systems Gen.: No fever, no chills All the 14 systems reviewed except for the ones mentioned above are negative Objective General VS/I O: Vital Signs: Date Time Temp Pulse Resp B/P B/P Pulse O2 O2 Flow FiO2 Mean Ox Delivery Rate 12/02 1147 97.9 75 16 151/102 118.6 97 Room air 12/02 0819 97.9 75 18 150/108 121.9 98 Room air 12/02 0448 98.1 76 17 153/114 126.9 98 Room air 12/02 0008 97.9 69 18 127/84 98.3 96 Room air 12/01 1957 97.7 73 18 135/90 104.9 97 Room air 12/01 1542 97.9 74 18 157/99 118.2 100 Room air 12/01 1408 75 16 141/92 108.5 95 Room air 24 hour I O ending at 0700: 12/02 0700 12/01 1900 Intake Total Output Total Balance Number Voids 2 Patient 143.3 kg Weight Weight Bed scale Measurement Method PATIENT WEIGHT: Weight (lb): 315 Weight (oz): 14.76 Weight (kg): 143.300 Free Text Obj Notes Free Text Obj Notes: Constitutional: patient is in moderate pain and discomfort HEENT: Mucous membranes moist, no icterus; left eye prosthesis noted Neck: Trachea midline, no lymphadenopathy Heart: Regular rate and rhythm; no murmurs Lungs: Air entry equal bilateral; no wheezes Abdomen: Soft; nontender; no guarding/tenderness/rebound Extremities: No calf tenderness; no ulcers, no bruises Neurological: Patient is awake, following commands; power mildly decreased in the left upper and lower limbs Skin: No rash, no ulcers Psychological: Not agitated Diagnosis, Assessment Plan Free Text DxA P Notes Free text DxA P notes: Left arm and leg weakness; likely secondary to TIA CT scan of the head in this hospital did not reveal acute lesions; CT angio neck -nondiagnostic Physical therapy consult/ST/OT; Check lipid panel in am- LDL 138 c/w aspirin, statin D/w Teleneurology CAD/Chest pain; Follow stasis results; Echo-severe global hypokinesis of the left ventricle Continue Coreg, statin Follow with Cardiology recommendation Heart failure with reduced ejection fraction s/p Biotronic AICD/PPM Compensated at present Present on admission Chronic, systolic Diabetes mellitus [id number] c/w Sliding scale insulin hypertension stable c.w coreg and amlodipine GI and DVT prophylaxis-SCDs; start on Lovenox Discussed with RN at 1404 RPT #:[id number] END OF REPORT [facility] 2020-12-01 10:02:00 [facility] ([facility]) Clinical Note REPORT#:[id number] REPORT STATUS: Signed DATE:12/01/20 TIME: 1002 PATIENT: BRYAN PARADA UNIT #: [id number] ROOM/BED: [address] : 66 AGE: 54 SEX: M ATTEND: Benoit Tello MD ADM AUTHOR: Cm Grullon MD * ALL edits or amendments must be made on the electronic/computer document * Clinical Note Note: Neurology Spoke w PCP OT PT to see prior to DC = safety eval. at 1003 RPT #:[id number] END OF REPORT [facility] 2020-12-01 09:26:00 [facility] ([facility]) Telemed Neuro Consult Note REPORT#:[id number] REPORT STATUS: Signed DATE:12/01/20 TIME: 925 PATIENT: BRYAN PARADA UNIT #: [id number] ROOM/BED: [address] : 66 AGE: 54 SEX: M ATTEND: Benoit Tello MD ADM AUTHOR: Cm Grullon MD * ALL edits or amendments must be made on the electronic/computer document * History of Present Illness HPI HPI: 54 yo male with episode left UE weakness 11/28/20. Resolving at this time. Presented with CP- evaluation per cardiology. 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 Pt with risks of HTN, obesity, DM. Denies novel numbness OS blind - trauma age 15 Denies PASTRANA Denies right sided symptoms Denies language or speech changes PPM placed 07/2020 - pt unclear aas to indications - considr role for afib. Pt not on OAC at time of admission. Location - role for right frontal/BG CVA Intensity - resolving- pt indicated improved motor left UE Duration - ongoing Associated sx - as above Labs Imaging Vitals Meds Notes Orders reviewed History Allergies: Coded Allergies: No Known Allergies (11/30/20) Review of Systems ROS comments: Neg for GI CV Endo Skin Heme Ortho Psych Objective Physical Exam VS: Last Documented: Result Date Time Pulse Ox 98 12/01 08 B/P 140/95 12/01 0823 B/P Mean 110.0 12/01 08 O2 Delivery Room air 12/01 822 Temp 97.9 12/01 08 Pulse 74 12/01 08 Resp 18 12/01 08 General appearance: alert, awake, oriented Neuro comment: NIHSS Alert interactive Follows commands Oriented - appropriate Face symmetric Vision - no VF changes Motor 0 score 4 extrem Sensory intact Language grossly intact to fluency and comprehension Speech - no dysarthria gait deferred Coordination intact Extinction deferred Diagnosis, Assessment Plan Free Text DxA P Notes: 54 yo male with recurrence of prior left sided weakness. Consider role for pathoclysis - recurrence of deficit seen in additional metabolic challenge - role for dysautonomia, BG variance. Carotids pendign Echopending If ok with PCP/cardiology - add Plavix 75 mg po q day Hold on MRI brain - with PPM at this time. Telemetry review /interrogation Bedrest until data set complete DVT prophylaxis at 0935 RPT #:[id number] END OF REPORT [facility] 2020-11-30 18:09:00 [facility] ([facility]) Hospitalist Progress Note REPORT#:[id number] REPORT STATUS: Signed DATE:11/30/20 TIME: 1808 PATIENT: TAL,BRYAN UNIT #: [id number] ROOM/BED: [facility] : 66 AGE: 54 SEX: M ATTEND: Benoit Tello MD ADM AUTHOR: Benoit Tello MD * ALL edits or amendments must be made on the electronic/computer document * Subjective Free Text Subj Notes Free Text Subj Notes: Patient is seen and examined in the room. He is complaining of headache this morning. He is awaiting MRI scan, pending confirmation of pacemaker compatibility. Tele neurology is yet to see the patient. Review of Systems Free Text ROS Notes Free Text ROS Notes: Review of systems Gen.: No fever, no chills All the 14 systems reviewed except for the ones mentioned above are negative Objective General VS/I O: Vital Signs: Date Time Temp Pulse Resp B/P B/P Pulse O2 O2 Flow FiO2 Mean Ox Delivery Rate 12/01 0246 96 Room air 12/01 0037 98.1 65 15 118/78 91.1 92 Room air 11/30 1954 98.2 73 15 126/82 96.5 95 Room air 11/30 1545 72 16 143/93 109.4 97 11/30 1132 74 16 126/85 98.8 97 11/30 0741 97.5 73 16 139/98 111.8 98 11/30 0321 97.3 77 15 145/92 109.6 95 Room air 24 hour I O ending at 0700: 12/01 0700 11/30 1900 Intake Total 150 Output Total 500 Balance -500 150 Intake, Oral 150 Output, Urine 500 Patient 140.614 kg Weight PATIENT WEIGHT: Weight (lb): 310 Weight (oz): 13.63 Weight (kg): 140.614 Free Text Obj Notes Free Text Obj Notes: Constitutional: patient is in moderate pain and discomfort HEENT: Mucous membranes moist, no icterus; left eye prosthesis noted Neck: Trachea midline, no lymphadenopathy Heart: Regular rate and rhythm; no murmurs Lungs: Air entry equal bilateral; no wheezes Abdomen: Soft; nontender; no guarding/tenderness/rebound Extremities: No calf tenderness; no ulcers, no bruises Neurological: Patient is awake, following commands; power decreased in the left upper and lower limbs Skin: No rash, no ulcers Psychological: Not agitated Diagnosis, Assessment Plan Free Text DxA P Notes Free text DxA P notes: Left arm and leg weakness; Rule out CVA MRI scan of the head pending; Obtain CT head results OSH CT scan of the head in this hsopital did not reveal acute lesions CT angio neck-nondiagnostic Physical therapy consult/ST/OT Check lipid panel in am- LDL 138 c/w aspirin, statin Tele neurology input pending CAD/Chest pain; stress test in am Trend troponin, telemetry monitoring Continue Coreg, statin Echo-severe global hypokinesis of the left ventricle Follow with Cardiology recommendation Heart failure with reduced ejection fraction s/p Biotronic AICD/PPM Compensated at present Present on admission Chronic, systolic Diabetes mellitus [id number] c/w Sliding scale insulin hypertension stable c.w coreg and amlodipine GI and DVT prophylaxis-SCDs; will avoid chemical anticoagulation to prevent hemorrhagic transformation Discussed with RN at 1518 RPT #:[id number] END OF REPORT [facility] 2020-11-30 17:16:00 [facility] ([facility]) Cardiology Consultation REPORT#:[id number] REPORT STATUS: Signed DATE:11/30/20 TIME: 1715 PATIENT: BRYAN PARADA UNIT #: [id number] ROOM/BED: [address] : 67 AGE: 54 SEX: M ATTEND: Benoit Tello MD ADM AUTHOR: Alexa Montelongo INSIDE PLANT SUPERVISOR,DYE OPERATOR,PHOTOGRAPHY MANAGER * ALL edits or amendments must be made on the electronic/computer document * Alexa Montelongo 11/30/20 1716: History of Present Illness HPI Requesting Clinician: Elisha Reason for consult: Chest Pain Free Text HPI Notes Free Text HPI Notes: Mr. Parada is an AAM w/ PMH CAD (Hx PCI w/ stents), HTN, HFrEF (Biotronic AICD /PPM 08/02/2020), who presented to an ED in [place], [place] w/ chest pain, H/A, acute onset left sided weakness; was later transfered to [facility] for further evaluation. Pt describes left parasternal chest pain as stabbing, non radiating, sustained, and unrelated to exertion. Began w/ onset of left sided weaknes; other associated sx were nausea, diaphoresis, palpitations. Pt is uncertain of triggers for onset of CP; but is relieved w/ morphine and Tylenol given in the hospital. First episode of CP lasted several hours until received morphine Tylenol in the afternoon. CP returned the following morning at 3 AM awakening pt and was relieved again w/ morphine Tylenol. Troponins are negative. CXR reveals no focal consolidation. CT of chest shows mild cardiac enlargement no aortic dissection or aneurysm. Cardiology was consulted to evaluate pt/s CP. Currently, pt denies any chest pain, SOB/dyspnea, palpitations, or nausea. Reports left arm leg weaker relative to right side and dizziness when walking w/ physical therapy in [place] today. Pt lives in [place], [place] and sees tube roller Dr. Ulloa from [facility]. History - Adult longitudinal Smoking status: Smoking status for patients 13 years old or older: Never Smoker Allergies: Coded Allergies: No Known Allergies (11/30/20) Review of Systems Free Text ROS Notes Free Text ROS Notes: 14-point ROS performed w/ pertinent +/- as per HPI. Objective General VS/I O: Vital Signs: Date Time Temp Pulse Resp B/P B/P Pulse O2 O2 Flow FiO2 Mean Ox Delivery Rate 11/30 1545 72 16 143/93 109.4 97 11/30 1132 74 16 126/85 98.8 97 11/30 0741 97.5 73 16 139/98 111.8 98 11/30 0321 97.3 77 15 145/92 109.6 95 Room air 11/29 2359 97.7 67 16 137/90 105.5 97 Room air 11/29 2002 97.5 76 16 151/95 113.5 97 Room air 11/29 1915 76 18 165/92 116 97 Room air 24 hour I O ending at 0700: 11/30 0700 11/29 1900 Intake Total Output Total Balance Patient 141 kg 159.091 kg Weight Weight Bed scale Stated/Reported Measurement Method PATIENT WEIGHT: Weight (lb): 310 Weight (oz): 13.63 Weight (kg): 140.614 Medications: Active Meds + DC'd Last 24 Hrs Morphine Sulfate 1 MG Q6H PRN PRN IV Amlodipine Besylate 10 MG DAILY PO Aspirin 325 MG DAILY PO Carvedilol 25 MG BID MEALS PO Morphine Sulfate 1 MG NOW ONE IV (DC) Atorvastatin Calcium 40 MG BEDTIME PO Acetaminophen 650 MG Q4H PRN PRN PO Acetaminophen 650 MG Q4H PRN PRN PO Dextrose/Water 25 ML ASDIR PRN IV (CKD) Glucagon 1 MG ASDIR PRN IM Glucose Polymer 15 GM ASDIR PRN PO Hydralazine HCl 10 MG Q4H PRN PRN IV Insulin Human Lispro See Admin Criteria ASDIR PRN SUBQ Ondansetron HCl 4 MG Q4H PRN PRN IV Polyethylene Glycol 17 GM DAILY PRN PRN PO Hydralazine HCl 10 MG X1ED STA IV (DC) Iopamidol 100 ML .STK-MED ONE IV (DC) Physical Exam General appearance: obese, alert, awake, oriented, no acute distress, pleasant, conversational, mental status normal, no respiratory distress Head/Eyes: atraumatic, normocephalic, Left eye prosthesis Neck: no bruit/NL carotids, no JVD Cardiovascular: CV assessment: regular rate and rhythm, normal heart sounds, pedal pulses present Respiratory: clear to auscultation, no distress Abdomen: soft, non-tender Genitourinary: no brown Upper extremity: UE assessment: normal temperature, no edema Lower extremity: LE assessment: normal temperature, no edema, 2+ pedal pulse Musculoskeletal: HOLLIS x 4 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, oriented X 3, normal speech Skin: dry, normal temperature Psychiatry: normal affect, normal judgment/insight, normal mood, no hallucinations Results Findings/Data: Laboratory Tests 11/30 11/30 11/30 11/30 1641 1218 0732 0354 Chemistry POC Glucose (70 - 119 MG/DL) 103 121 H 96 Hemoglobin A1c (4.5 - 5.6 % IS-A1C) 5.9 H 11/30 11/29 11/29 11/29 0354 2332 2038 1916 Chemistry Sodium (133 - 144 mmol/L) 137.0 Potassium (3.5 - 5.1 mmol/L) 3.7 Chloride (95 - 105 mmol/L) 106 H Carbon Dioxide (21 - 32 mmol/L) 25 Anion Gap (4.0 - 15.0 GAP calc) 6.0 BUN (7 - 18 MG/DL) 17 Creatinine (0.55 - 1.30 MG/DL) 1.42 H Glomerular Filtr Rate (>60 estGFR) 63 Glucose (70 - 110 MG/DL) 98 POC Glucose (70 - 119 MG/DL) 126 H Calcium (8.5 - 10.1 MG/DL) 8.7 Magnesium (1.6 - 2.6 MG/DL) 2.2 Total Bilirubin (0.00 - 1.00 MG/DL) 0.69 Direct Bilirubin (0.00 - 0.30 MG/DL) 0.17 Indirect Bilirubin (0.2 - 1.3 MG/DL) 0.52 AST (15 - 37 Unit/L) 13 L ALT (12 - 78 Unit/L) 15 Total Alk Phosphatase (45 - 117 Unit/L) 50 CK-MB (CK-2) (1.0 - 3.6 NG/ML) 1.4 1.6 Troponin I (0.000 - 0.045 NG/ML) 0.025 0.026 Total Protein (6.4 - 8.2 G/DL) 7.4 Albumin (3.4 - 5.0 G/DL) 3.5 Albumin/Globulin Ratio (1.2 - 2.2 RATIO) 0.9 L Triglycerides (0 - 150 MG/DL) 129 Cholesterol (133 - 200 MG/DL) 178 LDL Cholesterol Measurd (0 - 129 MG/DL) 112 Non-HDL Cholesterol (<130 mg/dL) 138 H HDL Cholesterol (40 - 59 MG/DL) 40 LDL/HDL Ratio (1.48 - 3.22 Avg Ratio) 2.80 Cholesterol/HDL Ratio (0 RATIO) 4.45 Specimen Appearance (1 NORMAL Index/DL) 1 NORMAL <2 MG Specimen Hemolysis (1 NORMAL Index/DL) 1 NORMAL <10 MG Laboratory Tests 11/30 0354 Hematology WBC (4.1 - 12.1 K/mm3) 5.0 RBC (3.8 - 5.5 M/mm3) 5.35 Hgb (10.6 - 15.8 G/DL) 13.9 Hct (31.8 - 47.4 %) 43.8 MCV (80.1 - 101.1 fL) 81.9 MCH (25.3 - 35.3 pg) 26.0 MCHC (32.7 - 35.1 G/DL) 31.7 L RDW (12.2 - 16.4 %) 18.2 H Plt Count (155 - 337 K/mm3) 229 MPV (7.6 - 10.4 fL) 11.2 H Gran % (37.8 - 82.6 %) 47.7 Lymph % (Auto) (14.1 - 45.4 %) 40.3 [place] % (Auto) (2.5 - 11.7 %) 10.0 Eos % (Auto) (0.0 - 6.2 %) 1.6 Baso % (Auto) (0.0 - 2.6 %) 0.2 Gran # (2.0 - 13.7 k/mm3) 2.39 Lymph # (Auto) (0.6 - 3.8 K/mm3) 2.02 [place] # (Auto) (0.11 - 0.59 K/mm3) 0.50 Eos # (Auto) (0.0 - 0.4 K/mm3) 0.08 Baso # (Auto) (0.0 - 0.1 K/mm3) 0.01 Immature Gran % (0.0 - 2.0 %) 0.2 Nucleated RBC % (0.0 - 1.0 /100WBC%) 0.0 Nucleated RBCs # (0.00 - 0.05 K/mm3) 0.00 Laboratory Tests 11/29 1750 Serology SARS-CoV-2 Ag (Rapid) (Neg) Negative Laboratory Tests 11/30 11/29 11/29 0354 2332 1916 Chemistry Magnesium (1.6 - 2.6 MG/DL) 2.2 CK-MB (CK-2) (1.0 - 3.6 NG/ML) 1.4 1.6 Troponin I (0.000 - 0.045 NG/ML) 0.025 0.026 Radiology Data: Recent Impressions: CAT SCAN - CT ANGIO NECK 11/29 1624 Report Impression - Status: SIGNED Entered: 11/29/20201710 IMPRESSION: Very limited exam due to poor timing of the contrast bolus. The CT portion of the neck is essentially nondiagnostic. Probably no significant carotid stenosis. CTA head is limited. No definite occlusion or aneurysm. Impression By: [email or web address] - Uriah Moran MD CAT SCAN - CT ANGIO HEAD 11/29 1624 Report Impression - Status: SIGNED Entered: 11/29/20201710 IMPRESSION: Very limited exam due to poor timing of the contrast bolus. The CT portion of the neck is essentially nondiagnostic. Probably no significant carotid stenosis. CTA head is limited. No definite occlusion or aneurysm. Impression By: [email or web address] - Uriah Moran MD Results: labs reviewed, vital signs stable, rhythm personally rev'd, current med profile rev'd EKG Interpretation: No ECG present in chart to evaluate. Telemetry Interpretation: NSR w/ HR 72; no ectopy noted Diagnosis, Assessment Plan Free Text DxA P Notes Free Text DxA P Notes: 1. Chest Pain * No 12-lead ECG on chart - ordered one now * Trops so far negative * Recommend risk staifiation w/ myocardial perfusion study - ordered for tomorrow * Echo (11/30/20): LVEF < 25% w/ severe concentric LVH. Severe global hypokinesis of left ventricle. RVSP elevated at 35-45 mmHg. Left atrium moderately dlated. * Interrogate Biotronic AICD/PPM - ordered today 2. CAD * Hx PCI w/ stents * Continue w/ ASA, Lipitor 3. HTN * Continue Coreg amlodipine 4. HFrEF * Biotronic AICD/PPM 08/02/2020 * Echo as above Plan discussed w/ pt, nurse, Dr. George. All questions answered. Thank you for the consultation. We appreciate being a part of MR. Parada' care. Deepak George 12/03/20 1840: Attestations Physician Attestation Agree w/findings plan: Agree with the findings and plan as documented by Arianna MONTELONGO APRN pt with extensive cardiac history, has f/u at [facility] plan for device check, echo, sttress test. at 0244 RPT #:[id number] END OF REPORT [facility] 2020-11-30 17:16:00 [facility] ([facility]) Cardiology Consultation REPORT#:[id number] REPORT STATUS: Signed DATE:11/30/20 TIME: 1715 PATIENT: BRYAN PARADA UNIT #: [id number] ROOM/BED: [address] : 66 AGE: 54 SEX: M ATTEND: Benoit Tello MD ADM AUTHOR: Reginald,Alexa [employer] SUPERVISOR,DYE OPERATOR,PHOTOGRAPHY MANAGER * ALL edits or amendments must be made on the electronic/computer document * Alexa Montelongo 11/30/20 1716: History of Present Illness HPI Requesting Clinician: Elisha Reason for consult: Chest Pain Free Text HPI Notes Free Text HPI Notes: Mr. Parada is an AAM w/ PMH CAD (Hx PCI w/ stents), HTN, HFrEF (Biotronic AICD /PPM 08/02/2020), who presented to an ED in [place], [place] w/ chest pain, H/A, acute onset left sided weakness; was later transfered to [facility] for further evaluation. Pt describes left parasternal chest pain as stabbing, non radiating, sustained, and unrelated to exertion. Began w/ onset of left sided weaknes; other associated sx were nausea, diaphoresis, palpitations. Pt is uncertain of triggers for onset of CP; but is relieved w/ morphine and Tylenol given in the hospital. First episode of CP lasted several hours until received morphine Tylenol in the afternoon. CP returned the following morning at 3 AM awakening pt and was relieved again w/ morphine Tylenol. Troponins are negative. CXR reveals no focal consolidation. CT of chest shows mild cardiac enlargement no aortic dissection or aneurysm. Cardiology was consulted to evaluate pt/s CP. Currently, pt denies any chest pain, SOB/dyspnea, palpitations, or nausea. Reports left arm leg weaker relative to right side and dizziness when walking w/ physical therapy [place]. Pt lives in [place], [place] and sees tube roller Dr. Ulloa from [facility]. History - Adult longitudinal Smoking status: Smoking status for patients 13 years old or older: Never Smoker Allergies: Coded Allergies: No Known Allergies (11/30/20) Review of Systems Free Text ROS Notes Free Text ROS Notes: 14-point ROS performed w/ pertinent +/- as per HPI. Objective General VS/I O: Vital Signs: Date Time Temp Pulse Resp B/P B/P Pulse O2 O2 Flow FiO2 Mean Ox Delivery Rate 11/30 1545 72 16 143/93 109.4 97 11/30 1132 74 16 126/85 98.8 97 11/30 0741 97.5 73 16 139/98 111.8 98 11/30 0321 97.3 77 15 145/92 109.6 95 Room air 11/29 2359 97.7 67 16 137/90 105.5 97 Room air 11/29 2002 97.5 76 16 151/95 113.5 97 Room air 11/29 1915 76 18 165/92 116 97 Room air 24 hour I O ending at 0700: 11/30 0700 11/29 1900 Intake Total Output Total Balance Patient 141 kg 159.091 kg Weight Weight Bed scale Stated/Reported Measurement Method PATIENT WEIGHT: Weight (lb): 310 Weight (oz): 13.63 Weight (kg): 140.614 Medications: Active Meds + DC'd Last 24 Hrs Morphine Sulfate 1 MG Q6H PRN PRN IV Amlodipine Besylate 10 MG DAILY PO Aspirin 325 MG DAILY PO Carvedilol 25 MG BID MEALS PO Morphine Sulfate 1 MG NOW ONE IV (DC) Atorvastatin Calcium 40 MG BEDTIME PO Acetaminophen 650 MG Q4H PRN PRN PO Acetaminophen 650 MG Q4H PRN PRN PO Dextrose/Water 25 ML ASDIR PRN IV (CKD) Glucagon 1 MG ASDIR PRN IM Glucose Polymer 15 GM ASDIR PRN PO Hydralazine HCl 10 MG Q4H PRN PRN IV Insulin Human Lispro See Admin Criteria ASDIR PRN SUBQ Ondansetron HCl 4 MG Q4H PRN PRN IV Polyethylene Glycol 17 GM DAILY PRN PRN PO Hydralazine HCl 10 MG X1ED STA IV (DC) Iopamidol 100 ML .STK-MED ONE IV (DC) Physical Exam General appearance: obese, alert, awake, oriented, no acute distress, pleasant, conversational, mental status normal, no respiratory distress Head/Eyes: atraumatic, normocephalic, Left eye prosthesis Neck: no bruit/NL carotids, no JVD Cardiovascular: CV assessment: regular rate and rhythm, normal heart sounds, pedal pulses present Respiratory: clear to auscultation, no distress Abdomen: soft, non-tender Genitourinary: no brown Upper extremity: UE assessment: normal temperature, no edema Lower extremity: LE assessment: normal temperature, no edema, 2+ pedal pulse Musculoskeletal: HOLLIS x 4 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, oriented X 3, normal speech Skin: dry, normal temperature Psychiatry: normal affect, normal judgment/insight, normal mood, no hallucinations Results Findings/Data: Laboratory Tests 11/30 11/30 11/30 11/30 1641 1218 0732 0354 Chemistry POC Glucose (70 - 119 MG/DL) 103 121 H 96 Hemoglobin A1c (4.5 - 5.6 % IS-A1C) 5.9 H 11/30 11/29 11/29 11/29 0354 9440 3 607 Chemistry Sodium (133 - 144 mmol/L) 137.0 Potassium (3.5 - 5.1 mmol/L) 3.7 Chloride (95 - 105 mmol/L) 106 H Carbon Dioxide (21 - 32 mmol/L) 25 Anion Gap (4.0 - 15.0 GAP calc) 6.0 BUN (7 - 18 MG/DL) 17 Creatinine (0.55 - 1.30 MG/DL) 1.42 H Glomerular Filtr Rate (>60 estGFR) 63 Glucose (70 - 110 MG/DL) 98 POC Glucose (70 - 119 MG/DL) 126 H Calcium (8.5 - 10.1 MG/DL) 8.7 Magnesium (1.6 - 2.6 MG/DL) 2.2 Total Bilirubin (0.00 - 1.00 MG/DL) 0.69 Direct Bilirubin (0.00 - 0.30 MG/DL) 0.17 Indirect Bilirubin (0.2 - 1.3 MG/DL) 0.52 AST (15 - 37 Unit/L) 13 L ALT (12 - 78 Unit/L) 15 Total Alk Phosphatase (45 - 117 Unit/L) 50 CK-MB (CK-2) (1.0 - 3.6 NG/ML) 1.4 1.6 Troponin I (0.000 - 0.045 NG/ML) 0.025 0.026 Total Protein (6.4 - 8.2 G/DL) 7.4 Albumin (3.4 - 5.0 G/DL) 3.5 Albumin/Globulin Ratio (1.2 - 2.2 RATIO) 0.9 L Triglycerides (0 - 150 MG/DL) 129 Cholesterol (133 - 200 MG/DL) 178 LDL Cholesterol Measurd (0 - 129 MG/DL) 112 Non-HDL Cholesterol (<130 mg/dL) 138 H HDL Cholesterol (40 - 59 MG/DL) 40 LDL/HDL Ratio (1.48 - 3.22 Avg Ratio) 2.80 Cholesterol/HDL Ratio (0 RATIO) 4.45 Specimen Appearance (1 NORMAL Index/DL) 1 NORMAL <2 MG Specimen Hemolysis (1 NORMAL Index/DL) 1 NORMAL <10 MG Laboratory Tests 11/30 353 Hematology WBC (4.1 - 12.1 K/mm3) 5.0 RBC (3.8 - 5.5 M/mm3) 5.35 Hgb (10.6 - 15.8 G/DL) 13.9 Hct (31.8 - 47.4 %) 43.8 MCV (80.1 - 101.1 fL) 81.9 MCH (25.3 - 35.3 pg) 26.0 MCHC (32.7 - 35.1 G/DL) 31.7 L RDW (12.2 - 16.4 %) 18.2 H Plt Count (155 - 337 K/mm3) 229 MPV (7.6 - 10.4 fL) 11.2 H Gran % (37.8 - 82.6 %) 47.7 Lymph % (Auto) (14.1 - 45.4 %) 40.3 [place] % (Auto) (2.5 - 11.7 %) 10.0 Eos % (Auto) (0.0 - 6.2 %) 1.6 Baso % (Auto) (0.0 - 2.6 %) 0.2 Gran # (2.0 - 13.7 k/mm3) 2.39 Lymph # (Auto) (0.6 - 3.8 K/mm3) 2.02 [place] # (Auto) (0.11 - 0.59 K/mm3) 0.50 Eos # (Auto) (0.0 - 0.4 K/mm3) 0.08 Baso # (Auto) (0.0 - 0.1 K/mm3) 0.01 Immature Gran % (0.0 - 2.0 %) 0.2 Nucleated RBC % (0.0 - 1.0 /100WBC%) 0.0 Nucleated RBCs # (0.00 - 0.05 K/mm3) 0.00 Laboratory Tests 11/29 1750 Serology SARS-CoV-2 Ag (Rapid) (Neg) Negative Laboratory Tests 11/30 2332 1916 Chemistry Magnesium (1.6 - 2.6 MG/DL) 2.2 CK-MB (CK-2) (1.0 - 3.6 NG/ML) 1.4 1.6 Troponin I (0.000 - 0.045 NG/ML) 0.025 0.026 Radiology Data: Recent Impressions: CAT SCAN - CT ANGIO NECK 11/29 1624 Report Impression - Status: SIGNED Entered: 11/29/20201710 IMPRESSION: Very limited exam due to poor timing of the contrast bolus. The CT portion of the neck is essentially nondiagnostic. Probably no significant carotid stenosis. CTA head is limited. No definite occlusion or aneurysm. Impression By: John Moran MD CAT SCAN - CT ANGIO HEAD 11/29 1624 Report Impression - Status: SIGNED Entered: 11/29/2020 171 IMPRESSION: Very limited exam due to poor timing of the contrast bolus. The CT portion of the neck is essentially nondiagnostic. Probably no significant carotid stenosis. CTA head is limited. No definite occlusion or aneurysm. Impression By: John Moran MD Results: labs reviewed, vital signs stable, rhythm personally rev'd, current med profile rev'd EKG Interpretation: No ECG present in chart to evaluate. Telemetry Interpretation: NSR w/ HR 72; no ectopy noted Diagnosis, Assessment Plan Free Text DxA P Notes Free Text DxA P Notes: 1. Chest Pain * No 12-lead ECG on chart - ordered one now * Trops so far negative * Recommend risk staifiation w/ myocardial perfusion study - ordered for tomorrow * Echo (11/30/20): LVEF < 25% w/ severe concentric LVH. Severe global hypokinesis of left ventricle. RVSP elevated at 35-45 mmHg. Left atrium moderately dlated. * Interrogate Biotronic AICD/PPM - ordered today 2. CAD * Hx PCI w/ stents * Continue w/ ASA, Lipitor 3. HTN * Continue Coreg amlodipine 4. HFrEF * Biotronic AICD/PPM 08/02/2020 * Echo as above Plan discussed w/ pt, nurse, Dr. George. All questions answered. Thank you for the consultation. We appreciate being a part of MR. Parada' care. Deepak George 12/03/20 1840: Attestations Physician Attestation Agree w/findings plan: Agree with the findings and plan as documented by Arianna MONTELONGO APRN pt with extensive cardiac history, has f/u at [facility] plan for device check, echo, sttress test. at 0244 at 1841 RPT #:[id number] END OF REPORT [facility] 2020-11-30 17:16:00 [facility] ([facility]) Cardiology Consultation REPORT#:[id number] REPORT STATUS: Signed DATE:11/30/20 TIME: 171 PATIENT: BRYAN PARADA UNIT #: [id number] ROOM/BED: [address] : 66 AGE: 54 SEX: M ATTEND: Benoit Tello MD ADM AUTHOR: Alexa Montelongo APRN, CNP, FNP * ALL edits or amendments must be made on the electronic/computer document * History of Present Illness HPI Requesting Clinician: Elisha Reason for consult: Chest Pain Free Text HPI Notes Free Text HPI Notes: Mr. Parada is an AAM w/ PMH CAD (Hx PCI w/ stents), HTN, HFrEF (Biotronic AICD /PPM 08/02/2020), who presented to an ED in [place], [place] w/ chest pain, H/A, acute onset left sided weakness; was later transfered to [facility] for further evaluation. Pt describes left parasternal chest pain as stabbing, non radiating, sustained, and unrelated to exertion. Began w/ onset of left sided weaknes; other associated sx were nausea, diaphoresis, palpitations. Pt is uncertain of triggers for onset of CP; but is relieved w/ morphine and Tylenol given in the hospital. First episode of CP lasted several hours until received morphine Tylenol in the afternoon. CP returned the following morning at 3 AM awakening pt and was relieved again w/ morphine Tylenol. Troponins are negative. CXR reveals no focal consolidation. CT of chest shows mild cardiac enlargement no aortic dissection or aneurysm. Cardiology was consulted to evaluate pt/s CP. Currently, pt denies any chest pain, SOB/dyspnea, palpitations, or nausea. Reports left arm leg weaker relative to right side and dizziness when walking w/ physical therapy [place]. Pt lives in [place], [place] and sees tube roller Dr. Ulloa from [facility]. History - Adult longitudinal Smoking status: Smoking status for patients 13 years old or older: Never Smoker Allergies: Coded Allergies: No Known Allergies (11/30/20) Review of Systems Free Text ROS Notes Free Text ROS Notes: 14-point ROS performed w/ pertinent +/- as per HPI. Objective General VS/I O: Vital Signs: Date Time Temp Pulse Resp B/P B/P Pulse O2 O2 Flow FiO2 Mean Ox Delivery Rate 11/30 1545 72 16 143/93 109.4 97 11/30 1132 74 16 126/85 98.8 97 11/30 0741 97.5 73 16 139/98 111.8 98 11/30 0321 97.3 77 15 145/92 109.6 95 Room air 11/29 2359 97.7 67 16 137/90 105.5 97 Room air 11/29 2002 97.5 76 16 151/95 113.5 97 Room air 11/29 1915 76 18 165/92 116 97 Room air 24 hour I O ending at 0700: 11/30 0700 11/29 1900 Intake Total Output Total Balance Patient 141 kg 159.091 kg Weight Weight Bed scale Stated/Reported Measurement Method PATIENT WEIGHT: Weight (lb): 310 Weight (oz): 13.63 Weight (kg): 140.614 Medications: Active Meds + DC'd Last 24 Hrs Morphine Sulfate 1 MG Q6H PRN PRN IV Amlodipine Besylate 10 MG DAILY PO Aspirin 325 MG DAILY PO Carvedilol 25 MG BID MEALS PO Morphine Sulfate 1 MG NOW ONE IV (DC) Atorvastatin Calcium 40 MG BEDTIME PO Acetaminophen 650 MG Q4H PRN PRN PO Acetaminophen 650 MG Q4H PRN PRN PO Dextrose/Water 25 ML ASDIR PRN IV (CKD) Glucagon 1 MG ASDIR PRN IM Glucose Polymer 15 GM ASDIR PRN PO Hydralazine HCl 10 MG Q4H PRN PRN IV Insulin Human Lispro See Admin Criteria ASDIR PRN SUBQ Ondansetron HCl 4 MG Q4H PRN PRN IV Polyethylene Glycol 17 GM DAILY PRN PRN PO Hydralazine HCl 10 MG X1ED STA IV (DC) Iopamidol 100 ML .STK-MED ONE IV (DC) Physical Exam General appearance: obese, alert, awake, oriented, no acute distress, pleasant, conversational, mental status normal, no respiratory distress Head/Eyes: atraumatic, normocephalic, Left eye prosthesis Neck: no bruit/NL carotids, no JVD Cardiovascular: CV assessment: regular rate and rhythm, normal heart sounds, pedal pulses present Respiratory: clear to auscultation, no distress Abdomen: soft, non-tender Genitourinary: no brown Upper extremity: UE assessment: normal temperature, no edema Lower extremity: LE assessment: normal temperature, no edema, 2+ pedal pulse Musculoskeletal: HOLLIS x 4 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, oriented X 3, normal speech Skin: dry, normal temperature Psychiatry: normal affect, normal judgment/insight, normal mood, no hallucinations Results Findings/Data: Laboratory Tests 11/30 11/30 11/30 11/30 1641 1218 0732 0354 Chemistry POC Glucose (70 - 119 MG/DL) 103 121 H 96 Hemoglobin A1c (4.5 - 5.6 % IS-A1C) 5.9 H 11/30 11/29 11/29 11/29 0354 2332 2039 1916 Chemistry Sodium (133 - 144 mmol/L) 137.0 Potassium (3.5 - 5.1 mmol/L) 3.7 Chloride (95 - 105 mmol/L) 106 H Carbon Dioxide (21 - 32 mmol/L) 25 Anion Gap (4.0 - 15.0 GAP calc) 6.0 BUN (7 - 18 MG/DL) 17 Creatinine (0.55 - 1.30 MG/DL) 1.42 H Glomerular Filtr Rate (>60 estGFR) 63 Glucose (70 - 110 MG/DL) 98 POC Glucose (70 - 119 MG/DL) 126 H Calcium (8.5 - 10.1 MG/DL) 8.7 Magnesium (1.6 - 2.6 MG/DL) 2.2 Total Bilirubin (0.00 - 1.00 MG/DL) 0.69 Direct Bilirubin (0.00 - 0.30 MG/DL) 0.17 Indirect Bilirubin (0.2 - 1.3 MG/DL) 0.52 AST (15 - 37 Unit/L) 13 L ALT (12 - 78 Unit/L) 15 Total Alk Phosphatase (45 - 117 Unit/L) 50 CK-MB (CK-2) (1.0 - 3.6 NG/ML) 1.4 1.6 Troponin I (0.000 - 0.045 NG/ML) 0.025 0.026 Total Protein (6.4 - 8.2 G/DL) 7.4 Albumin (3.4 - 5.0 G/DL) 3.5 Albumin/Globulin Ratio (1.2 - 2.2 RATIO) 0.9 L Triglycerides (0 - 150 MG/DL) 129 Cholesterol (133 - 200 MG/DL) 178 LDL Cholesterol Measurd (0 - 129 MG/DL) 112 Non-HDL Cholesterol (<130 mg/dL) 138 H HDL Cholesterol (40 - 59 MG/DL) 40 LDL/HDL Ratio (1.48 - 3.22 Avg Ratio) 2.80 Cholesterol/HDL Ratio (0 RATIO) 4.45 Specimen Appearance (1 NORMAL Index/DL) 1 NORMAL <2 MG Specimen Hemolysis (1 NORMAL Index/DL) 1 NORMAL <10 MG Laboratory Tests 11/30 0354 Hematology WBC (4.1 - 12.1 K/mm3) 5.0 RBC (3.8 - 5.5 M/mm3) 5.35 Hgb (10.6 - 15.8 G/DL) 13.9 Hct (31.8 - 47.4 %) 43.8 MCV (80.1 - 101.1 fL) 81.9 MCH (25.3 - 35.3 pg) 26.0 MCHC (32.7 - 35.1 G/DL) 31.7 L RDW (12.2 - 16.4 %) 18.2 H Plt Count (155 - 337 K/mm3) 229 MPV (7.6 - 10.4 fL) 11.2 H Gran % (37.8 - 82.6 %) 47.7 Lymph % (Auto) (14.1 - 45.4 %) 40.3 [place] % (Auto) (2.5 - 11.7 %) 10.0 Eos % (Auto) (0.0 - 6.2 %) 1.6 Baso % (Auto) (0.0 - 2.6 %) 0.2 Gran # (2.0 - 13.7 k/mm3) 2.39 Lymph # (Auto) (0.6 - 3.8 K/mm3) 2.02 [place] # (Auto) (0.11 - 0.59 K/mm3) 0.50 Eos # (Auto) (0.0 - 0.4 K/mm3) 0.08 Baso # (Auto) (0.0 - 0.1 K/mm3) 0.01 Immature Gran % (0.0 - 2.0 %) 0.2 Nucleated RBC % (0.0 - 1.0 /100WBC%) 0.0 Nucleated RBCs # (0.00 - 0.05 K/mm3) 0.00 Laboratory Tests 11/29 1750 Serology SARS-CoV-2 Ag (Rapid) (Neg) Negative Laboratory Tests 11/30 11/29 11/29 0354 2332 1916 Chemistry Magnesium (1.6 - 2.6 MG/DL) 2.2 CK-MB (CK-2) (1.0 - 3.6 NG/ML) 1.4 1.6 Troponin I (0.000 - 0.045 NG/ML) 0.025 0.026 Radiology Data: Recent Impressions: CAT SCAN - CT ANGIO NECK 11/29 1624 Report Impression - Status: SIGNED Entered: 11/29/2020 1711 IMPRESSION: Very limited exam due to poor timing of the contrast bolus. The CT portion of the neck is essentially nondiagnostic. Probably no significant carotid stenosis. CTA head is limited. No definite occlusion or aneurysm. Impression By: John Moran MD CAT SCAN - CT ANGIO HEAD 11/29 1624 Report Impression - Status: SIGNED Entered: 11/29/2020 1711 IMPRESSION: Very limited exam due to poor timing of the contrast bolus. The CT portion of the neck is essentially nondiagnostic. Probably no significant carotid stenosis. CTA head is limited. No definite occlusion or aneurysm. Impression By: John Moran MD Results: labs reviewed, vital signs stable, rhythm personally rev'd, current med profile rev'd EKG Interpretation: No ECG present in chart to evaluate. Telemetry Interpretation: NSR w/ HR 72; no ectopy noted Diagnosis, Assessment Plan Free Text DxA P Notes Free Text DxA P Notes: 1. Chest Pain * No 12-lead ECG on chart - ordered one now * Trops so far negative * Recommend risk staifiation w/ myocardial perfusion study - ordered for tomorrow * Echo (11/30/20): LVEF < 25% w/ severe concentric LVH. Severe global hypokinesis of left ventricle. RVSP elevated at 35-45 mmHg. Left atrium moderately dlated. * Interrogate Biotronic AICD/PPM - ordered today 2. CAD * Hx PCI w/ stents * Continue w/ ASA, Lipitor 3. HTN * Continue Coreg amlodipine 4. HFrEF * Biotronic AICD/PPM 08/02/2020 * Echo as above Plan discussed w/ pt, nurse, Dr. George. All questions answered. Thank you for the consultation. We appreciate being a part of MR. Parada' care. at 0244 RPT #:[id number] END OF REPORT [facility] 2020-11-30 08:24:00 [id number] [place] [address] PATIENT NAME: BRYAN PARADA ADMIT DATE: 11/30/20 ACCOUNT NO: [id number] ROOM NO: [facility] AGE: 54 REPORT TYPE: eECHOCARDIOGRAM REPORT SEX: M ADMITTING PHYSICIAN:Benoit Tello MD ATTENDING PHYSICIAN:Benoit Tello MD Name: KATHE PARADAtudy Date: 11/30/2020 08:24 AMPatient Location: [place] [address] [address] URN: [id number] BP: 145/92 mmHg : 75 in Gender: Male Weight: 350 lb : 1965 Gender: Male Age: 54 yrs Ethnicity: B BSA: 2.8 m2 Reason For Study: CHEST PAIN Cardiac Measurements with Normal Values: Ao root diam: 2.7 cm 20-37 mmACS: 2.1 cm 15-26 mm LA dimension: 4.4 cm 19-40 mm LVIDd: 5.7 cm 37-56 mm LVIDs: 5.2 cm - IVSd: 1.5 cm6-11 mm RVDd: 3.7 cm 7-23 mm MMode/2D Measurements Calculations LVPWd: 1.5 cm FS: 10.2 % EDV(Teich): 162.6 ml ESV(Teich): 126.8 ml EF(Teich): 22.0 % LVOT diam: 2.1 cm Ao root area: 5.6 cm2 LVOT area: 3.5 cm2 Doppler Measurements Calculations MV E max sommer: 110.6 cm/sec MV dec slope: 945.1 cm/sec2 MV A max sommer: 87.6 cm/sec MV dec time: 0.12 sec MV E/A: 1.3 Ao V2 max: 79.3 cm/sec AI max sommer: 220.2 cm/sec Ao max P.5 mmHg AI max P.4 mmHg Ao V2 mean: 60.0 cm/sec AI dec slope: 157.0 cm/sec2 Ao mean P.6 mmHg AI P1/2t: 410.8 msec Ao V2 VTI: 13.7 cm ANITA(I,D): 2.8 cm2 PATIENT NAME: BRYAN PARADA ANITA(V,D): 3.3 cm2 LV V1 max P.3 mmHg MR max sommer: 334.8 cm/sec LV V1 mean P.3 mmHg MR max P.7 mmHg LV V1 max: 76.2 cm/sec LV V1 mean: 54.1 cm/sec LV V1 VTI: 11.2 cm SV(LVOT): 38.9 ml PA V2 max: 117.0 cm/sec PA max P.5 mmHg PA V2 mean: 63.6 cm/sec PA mean P.1 mmHg PA V2 VTI: 18.9 cm PI end-d sommer: 172.8 cm/sec TR max sommer: 283.2 cm/sec TR max P.4 mmHg RVSP(TR): 42.4 mmHg RAP systole: 10.0 mmHg Conclusions There is severe concentric left ventricular hypertrophy. Ejection Fraction = <25%. There is severe global hypokinesis of the left ventricle. Left ventricular systolic function is severely reduced. Right ventricular systolic pressure is elevated at 35-45mmHg. Left Ventricle The left ventricle is grossly normal size. There is severe concentric left ventricular hypertrophy. Ejection Fraction = <25%. Left ventricular systolic function is severely reduced. There is severe global hypokinesis of the left ventricle. Right Ventricle The right ventricle is grossly normal size. There is a pacemaker lead in the right ventricle. Atria The left atrium is moderately dilated. Right atrial size is normal. Mitral Valve There is mild mitral annular calcification. Tricuspid Valve The tricuspid valve is not well visualized, but is grossly normal. There is mild to moderate tricuspid regurgitation. Right ventricular systolic pressure is elevated at 35-45mmHg. PATIENT NAME: BRYAN PARADA Aortic Valve The aortic valve opens well. No hemodynamically significant valvular aortic stenosis. Pulmonic Valve The pulmonic valve is not well visualized. Great Vessels The aortic root is not well visualized but is probably normal size. Pericardium/Pleural There is no pericardial effusion. Electronically signed by: Deepak George MD 11/30/2020 05:57 PM Ordering Physician: Benoit Tello Referring Physician: Chuckie Olmos Performed By: Lambert Hull at 1758 PATIENT NAME: BRYAN PARADA [facility] 2020-11-29 19:27:00 [facility] Hospitalist History Physical REPORT#:[id number] REPORT STATUS: Signed DATE:11/29/20 TIME: 1926 PATIENT: BRYAN PARADA UNIT #: [id number] ROOM/BED: [address] : 66 AGE: 54 SEX: M ATTEND: Benoit Tello MD ADM AUTHOR: Benoit Tello MD * ALL edits or amendments must be made on the electronic/computer document * History of Present Illness HPI Chief complaint: Transferred from [facility] in [place] for evaluation of CVA HPI: Patient is a 54-year-old male with past medical history of hypertension, diabetes mellitus,? s/p PPM who was transferred from outside hospital for evaluation of left-sided weakness. As per the patient, he was sitting in chair this morning when he suddenly started experiencing weakness of the left arm and leg along with headache. He also has chest discomfort. Patient did not have cough or shortness of breath. Patient does not have GI complaints. He had nausea but did not vomit. Patient's points to front of the head as the site of location of headache. PAST MEDICAL HISTORY: 1. Left eye blindness. 2. Diabetes mellitus. 3. Hypertension. 4. Right knee degenerative joint disease. PAST SURGICAL HISTORY: Includes a right knee replacement and subsequent revision and left eye surgery.? PPM placement ALLERGIES: NO KNOWN DRUG ALLERGIES. SOCIAL HISTORY: He is and lives in a one-todd home. He is currently not working and is on disability. There is no history of any tobacco use or drug use. He did drink in the past; however, quit in the 80s. FAMILY HISTORY: Positive for hypertension and diabetes. History Social History Smoking status: Smoking status for patients 13 years old or older: Unknown,if ever smoked Medication/Allergy-Vaccine Hx Allergies: Coded Allergies: No Known Allergies (11/30/20) Review of Systems Free Text ROS Notes Free Text ROS Notes: Review of systems Gen.: No fever, no chills All the 14 systems reviewed except for the ones mentioned above are negative Physical Exam VS/I O: Vital Signs Date Temp Pulse Resp B/P B/P Mean Pulse Ox FiO2 11/29 97.5-98.5 67-77 16-18 137-220/90-143 105.5-168 97-98 Last Documented: Result Date Time Pulse Ox 97 11/29 2358 B/P 137/90 11/29 2358 B/P Mean 105.5 11/29 2359 O2 Delivery Room air 11/29 2358 Temp 97.7 11/29 2358 Pulse 67 11/29 2359 Resp 16 11/29 2358 24 hour I O ending at 0700: 11/30 0700 11/29 1900 Intake Total Output Total Balance Patient 141 kg 159.091 kg Weight Weight Bed scale Stated/Reported Measurement Method Patient Weight and BMI Weight (kg): 141.000 BMI: 39.9 Free Text PE Notes Free Text PE Notes: Constitutional: comfortable, not in pain HEENT: Mucous membranes moist, no icterus; left eye prosthesis noted Neck: Trachea midline, no lymphadenopathy Heart: Regular rate and rhythm; no murmurs Lungs: Air entry equal bilateral; no wheezes Abdomen: Soft; nontender; no guarding/tenderness/rebound Extremities: No calf tenderness; no ulcers, no bruises Neurological: Patient is awake, following commands Skin: No rash, no ulcers Psychological: Not agitated Diagnosis, Assessment Plan Free Text A P: Left arm and leg weakness Rule out CVA Obtain CT head results OSH CT scan of the head this aspirate did not reveal acute lesions CT angio neck-nondiagnostic Initiate stroke workup-MRI scan of the head Tele neurology input Physical therapy consult/ST/OT Check lipid panel in am Start on aspirin, statin Chest pain; Rule out ACS Trend troponin, telemetry monitoring Continue Coreg, statin Hx of ? Pacemaker placement Monitor on telemetry Obtain records Diabetes mellitus Checking N/C Sliding scale insulin hypertension GI and DVT prophylaxis-SCDs; will avoid chemical anticoagulation to prevent hemorrhagic transformation Discussed with RN at 1809 RPT #:[id number] END OF REPORT [facility] 2020-11-29 15:42:00 [facility] ([facility]) EMERGENCY PROVIDER REPORT REPORT#:[id number] REPORT STATUS: Signed DATE:11/29/20 TIME: 1542 PATIENT: BRYAN PARADA UNIT #: [id number] ROOM/BED: AGE: 54 SEX: M PCP PHYS: No Primary or Family Physician SERVICE AUTHOR: Chuckie Olmos DO * ALL edits or amendments must be made on the electronic/computer document * HPI-General Illness Free Text HPI Notes Free Text HPI Notes 54-year-old male past medical history diabetes, previous CVA few months ago Presents to the ER for evaluation of worsening left-sided weakness over today. Patient was seen at an OSH and transferred for stroke evaluation. Patient's last known well was yesterday at 9 AM. He began having left-sided arm weakness and facial weakness and numbness over his entire left side. 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 Patient denies any chest pain shortness of breath. Patient does endorse a headache. He states he was sweaty when he went to the ER this morning. Denies smoking, EtOH, drug use Problem is new, acute onset, constant, worsening, not improved by anything prior to arrival. General Initial Greet Date/Time 11/29/20 1535 Presentation Chief Complaint Weakness Hx Obtained From Patient, EMS Review of Systems ROS Statements All systems rev neg except as marked. Review of Systems Constitutional Denies: Chills, Fatigue, Fever. Past Medical History - Adult Stated Complaint CHEST PAIN AND PASTRANA Allergies Coded Allergies: No Known Allergies (11/10/13) Home Medications Reported Medications APIXABAN (ELIQUIS) 5 MG PO BID hydrALAZINE (APRESOLINE) 100 MG PO BID glipiZIDE (GLUCOTROL) 5 MG PO BID LISINOPRIL (ZESTRIL) 20 MG PO DAILY SPIRONOLACTONE (ALDACTONE) 25 MG PO DAILY FUROSEMIDE (LASIX) 80 MG PO BID amLODIPine (NORVASC) 10 MG PO DAILY CARVEDILOL (COREG) 25 MG PO BID MEALS ATORVASTATIN (LIPITOR) 40 MG PO BEDTIME ACETAMINOPHEN/CODEINE (TYLENOL WITH CODEINE #2 300/15 MG) 1 TAB PO Q12H PRN PRN PAIN Discontinued Reported Medications RIVAROXABAN (XARELTO) 10 MG PO QPM HYDROcodone/APAP (NORCO 10/325) 1 TAB PO Q4-6HR PRN PAIN HYDROcodone/APAP (NORCO 10/325) 2 TAB PO Q4-6HR DOCUSATE SODIUM (COLACE) 100 MG PO BID FERROUS SULFATE (FEOSOL) 325 MG PO TID hydrALAZINE (APRESOLINE) 50 MG PO TID HYDROCHLOROTHIAZIDE (HYDRODIURIL) 25 MG PO DAILY cloNIDine (CATAPRES) 0.2 MG PO BID metFORMIN (GLUCOPHAGE) 500 MG PO DAILY amLODIPine (NORVASC) 10 MG PO DAILY ATENOLOL (TENORMIN) 100 MG PO BID Smoking status: Smoking status for patients 13 years old or older: Unknown,if ever smoked Physical Exam Vital Signs Vital Signs First Documented: Result Date Time Pulse Ox 98 11/29 1508 B/P 220/143 11/29 1508 B/P Mean 168 11/29 1508 O2 Delivery Room air 11/29 1508 Temp 98.5 11/29 1508 Pulse 77 11/29 1508 Resp 18 11/29 1508 Last Documented: Result Date Time Pulse Ox 98 11/29 1508 B/P 220/143 11/29 1508 B/P Mean 168 11/29 1508 O2 Delivery Room air 11/29 1508 Temp 98.5 11/29 1508 Pulse 77 11/29 1508 Resp 18 11/29 1508 Review of Vital Signs Reviewed Physical Exam General/Const General/Const Awake, Alert, Not toxic appearing MS Head Head Atraumatic, Normocephalic Eyes Eyes Atraumatic, No periorbital redness, No periorbital swelling Ears/Nose/Throat Ears/Nose/Throat Airway patent, Mucous membranes moist, Pharynx NL Resp/Chest Respiratory/Chest Breath sounds NL, Breath sounds = bilat, No respiratory distress Cardiovascular Cardiovascular Heart rate NL, Regular rhythm, Heart sounds NL Abdomen/GI Abdomen/GI Soft, Non-tender Skin Skin Warm, Dry Genitourinary General Exam deferred Neurologic Neurologic Oriented X3, Speech NL Text/Dict Notes Left-sided facial droop Left arm weakness compared to right, +4 strength Subjective numbness over her left side Psychiatric Psychiatric Affect NL, Mood NL Interpretation Diagnostics Lab Results Interpretation Results Recent Impressions: CAT SCAN - CT ANGIO NECK 11/29 1624 Report Impression - Status: SIGNED Entered: 11/29/20201710 IMPRESSION: Very limited exam due to poor timing of the contrast bolus. The CT portion of the neck is essentially nondiagnostic. Probably no significant carotid stenosis. CTA head is limited. No definite occlusion or aneurysm. Impression By: John Moran MD CAT SCAN - CT ANGIO HEAD 11/29 1624 Report Impression - Status: SIGNED Entered: 11/29/20201710 IMPRESSION: Very limited exam due to poor timing of the contrast bolus. The CT portion of the neck is essentially nondiagnostic. Probably no significant carotid stenosis. CTA head is limited. No definite occlusion or aneurysm. Impression By: John Moran MD Point of Care Testing Pulse Oximetry Pulse Ox % 99 On: Room air Interpretation Interpreted by ia Time 1545 Re-Evaluation MDM Free Text MDM Notes Free Text MDM Notes Transfer from OSH for acute CVA CTA nonacute IV medication given in the ER for critically elevated blood pressure Blood pressure improving Medicine consulted for admission for further testing and treatment Patient updated and agreeable plan of care Patient requires telemetry monitoring ED Course Medication(s) Ordered Medication(s) Ordered: Cardiovascular Drugs Sig/Mira Start time Last Medication Dose Route Stop Time Status Admin Hydralazine HCl 10 MG X1ED STA 11/29 171 DC 11/29 IV 11/29 1720 1733 Diagnostic Agents Sig/Mira Start time Last Medication Dose Route Stop Time Status Admin Iopamidol 100 ML .STK-MED ONE 11/29 1718 DC 11/29 IV 11/29 1719 1718 Patient Discharge Departure Vital Signs/Condition Vital Signs First Documented: Result Date Time Pulse Ox 98 11/29 1508 B/P 220/143 11/29 1508 B/P Mean 168 11/29 1508 O2 Delivery Room air 11/29 1508 Temp 98.5 11/29 1508 Pulse 77 11/29 1508 Resp 18 11/29 1508 Last Documented: Result Date Time Pulse Ox 98 11/29 1508 B/P 220/143 11/29 1508 B/P Mean 168 11/29 1508 O2 Delivery Room air 11/29 1508 Temp 98.5 11/29 1508 Pulse 77 11/29 1508 Resp 18 11/29 1508 All vital signs available at the time of this entry have been reviewed. Clinical Impression Clinical Impression Primary Impression: Acute CVA (cerebrovascular accident) Secondary Impressions: Hypertensive urgency Disposition Decision Admit Admit Physician Name Benoit Tello MD Admit Physician Hospitalist )( Admission Accepts Yes )( Accepted Time 173 )( Accepted Date 11/29/20 Discharge/Care Plan Counseled Regarding Diagnosis, Lab results, Imaging studies, Need for admission Admit Note I have spoken with the patient and/or caregivers. I have explained the patient's condition, diagnoses and treatment plan based on the information available to me at this time. I have answered the patient's and/or caregiver's questions and addressed any concerns. The patient and/or caregivers have as good an understanding of the patient's diagnosis, condition and treatment plan as can be expected at this point. The patient has been stabilized within the capability of the emergency department. The patient will be transported for further care and management or will be moved to an observation or inpatient service. I have communicated with the staff or medical practitioner taking over this patient's care. at 1738 RPT #:[id number] END OF REPORT [facility] 2020-11-29 09:43:00 [facility] ([facility]) EMERGENCY PROVIDER REPORT REPORT#:[id number] REPORT STATUS: Signed DATE:11/29/20 TIME:09 PATIENT: BRYAN PARADA UNIT #: [id number] ROOM/BED: : 66 AGE: 54 SEX: M PCP PHYS: No Primary or Family Physician SERVICE AUTHOR: Maximino Ham MD * ALL edits or amendments must be made on the electronic/computer document * HPI-Stroke/CVA Free Text HPI Notes Free Text HPI Notes Patient presents to emergency department for left-sided facial droop and left upper and lower extremity weakness. Patient also complaining of left-sided chest pain. Patient states symptoms started at 9 AM yesterday and was seen at another emergency department with negative evaluation but states symptoms worsened. No fever, chills, nausea, vomiting, diarrhea. General Initial Greet Date/Time 11/29/20 0932 Presentation )( Last Known Well )( Time 0900 Date 11/28/20 )( Progression since Onset Unchanged Medications Prior to Arrival Medications/treatments prior to arrival: 18G RAC 100 FENTAYL 4 ZOFRAN Risk-Stroke/CVA Risk Stratification )( Initial NIH Stroke Scale )( Initial NIH Stroke Scale Response Value NIHSS Applicable? Yes 0 Level of Consciousness Alert and responsive (0) 0 Ask Month Age Both questions right (0) 0 Blink Eyes/Squeeze Hands Performs both tasks (0) 0 Horizontal EOM NL side/side eye mvmt (0) 0 Visual Fuchs No visual loss (0) 0 Facial Palsy Minor paralysis (1) 1 Right Arm Motor Drift (10s) No drift 10 sec (0) 0 Left Arm Motor Drift (10s) No drift 10 sec (0) 0 Right Leg Motor Drift (5s) No drift 5 sec (0) 0 Left Leg Motor Drift (5s) Drift, not touch bed (1) 1 Limb Ataxia FNF/Heel-Waite No ataxia (0) 0 Sensation (Arms/Legs/Face) No sensory loss (0) 0 Language Aphasia No aphasia, normal (0) 0 Dysarthria No dysarthria (0) 0 Extinction/Inattention No extinct/inattent (0) 0 Total 2 Review of Systems ROS Statements All systems rev neg except as marked. Basic Review of Systems Basic ROS : No dysuria/frequency, HEM: No bleeding/bruising Focused Review of Systems Constitutional Denies: Chills, Fatigue, Fever, Malaise. Eyes Denies: Blurred bilat, Discharge bilat, Eye pain bilat, Redness bilat. Ears/Nose/Throat Denies: Ear drainage bilat, Earache bilat, Mouth pain, Nasal congestion. Respiratory Denies: Cough, non-productive, Cough, productive, Shortness of breath, Wheezing. Cardiovascular Reports: Chest pain. Denies: Dyspnea on exertion, Edema, Orthopnea, Palpitations. GI Denies: Abdominal pain, Anorexia, Nausea, Vomiting. Musculoskeletal Denies: Back pain, Extremity pain, Extremity swelling, Joint pain, Joint swelling. Skin Denies: Abrasion, Abscess, Burn, Contusion. Neurologic Reports: Focal weakness. Denies: Abnormal movement, Bladder dysfunction, Bowel dysfunction, Change LOC, Confusion, Dizziness, Generalized weakness, Headache, Lightheaded. PMH-Stroke/CVA Stated Complaint LEFT SIDED WEAKNESS AND CHEST PAIN Allergies Coded Allergies: No Known Allergies (11/30/20) Home Medications Reported Medications APIXABAN (ELIQUIS) 5 MG PO BID hydrALAZINE (APRESOLINE) 100 MG PO BID glipiZIDE (GLUCOTROL) 5 MG PO BID LISINOPRIL (ZESTRIL) 20 MG PO DAILY SPIRONOLACTONE (ALDACTONE) 25 MG PO DAILY FUROSEMIDE (LASIX) 80 MG PO BID amLODIPine (NORVASC) 10 MG PO DAILY CARVEDILOL (COREG) 25 MG PO BID MEALS ATORVASTATIN (LIPITOR) 40 MG PO BEDTIME ACETAMINOPHEN/CODEINE (TYLENOL WITH CODEINE #2 300/15 MG) 1 TAB PO Q12H PRN PRN PAIN Discontinued Reported Medications RIVAROXABAN (XARELTO) 10 MG PO QPM HYDROcodone/APAP (NORCO 10/325) 1 TAB PO Q4-6HR PRN PAIN HYDROcodone/APAP (NORCO 10/325) 2 TAB PO Q4-6HR DOCUSATE SODIUM (COLACE) 100 MG PO BID FERROUS SULFATE (FEOSOL) 325 MG PO TID hydrALAZINE (APRESOLINE) 50 MG PO TID HYDROCHLOROTHIAZIDE (HYDRODIURIL) 25 MG PO DAILY cloNIDine (CATAPRES) 0.2 MG PO BID metFORMIN (GLUCOPHAGE) 500 MG PO DAILY amLODIPine (NORVASC) 10 MG PO DAILY ATENOLOL (TENORMIN) 100 MG PO BID Smoking status: Smoking status for patients 13 years old or older: Never Smoker Physical Exam Vital Signs Vital Signs First Documented: Result Date Time Pulse Ox 98 11/30 939 B/P 182/125 11/30 939 B/P Mean 144 11/29 0840 O2 Delivery Room air 11/30 939 Temp 98.5 11/30 939 Pulse 79 11/30 939 Resp 19 11/30 939 Last Documented: Result Date Time Pulse Ox 94 11/29 1345 B/P 161/111 11/29 1345 B/P Mean 127 11/29 1345 O2 Delivery Room air 11/29 134 Temp 98.2 11/29 134 Pulse 75 11/29 1345 Resp 18 11/29 134 Review of Vital Signs Reviewed Basic Physical Exam Basic PE HEAD: Atraumatic/NC, EYES: PERRL, conj clear, ENT: Membranes moist, ABD : Soft/non-tender, EXT: No gross abnormality, SKIN: No rashes, warm/dry Focused PE General/Const General/Const Awake, Alert, No acute distress, Well appearing, Well developed MS Head Head Atraumatic, Normocephalic Eyes Eyes Atraumatic, EOMI, No nystagmus, No periorbital redness Ears/Nose/Throat Ears/Nose/Throat Atraumatic, Airway patent, No trismus MS Neck Neck Atraumatic, Supple, No meningismus, No midline vertebral tend Resp/Chest Respiratory/Chest Atraumatic, Breath sounds NL, Breath sounds = bilat, No respiratory distress, No rales, No rhonchi Cardiovascular Cardiovascular Heart rate NL, Regular rhythm, Cap refill not delayed, Peripheral circulation NL Abdomen/GI Abdomen/GI Atraumatic, Soft, Non-tender, No distention MS Upper Extrem Upper Extremity/MS Atraumatic, Inspection NL, Full range of motion, No swelling Text/Dict Notes Decreased local driver strength in left upper extremity MS Lower Extrem Lower Ext/Pelvis/MS Atraumatic, Inspection NL, Full range of motion, No erythema Skin Skin Atraumatic, Color NL, Warm, Dry, Intact Neurologic Neurologic Oriented X3, Speech NL Text/Dict Notes Decreased strength in the left leg, decreased local driver strength in left arm, left- sided facial droop Interpretation Diagnostics Lab Results Interpretation Results Laboratory Tests 11/29/20934: [Embedded Image Not Available] Laboratory Tests: 11/29 934 Chemistry Sodium (134 - 147 mmol/L) 141 Potassium (3.4 - 5.0 mmol/L) 4.0 Chloride (100 - 108 mmol/L) 107 Carbon Dioxide (21 - 32 mmol/L) 29 Anion Gap (4.0 - 15.0 GAP calc) 5.0 BUN (7 - 18 MG/DL) 17 Creatinine (0.8 - 1.3 MG/DL) 1.6 H Glomerular Filtr Rate (>60 estGFR) 59 L Glucose (70 - 110 MG/DL) 101 Calcium (8.5 - 10.1 MG/DL) 8.8 Total Bilirubin (0.2 - 1.2 MG/DL) 0.70 AST (15 - 37 Unit/L) 15 ALT (12 - 78 Unit/L) 15 Total Alk Phosphatase (50 - 136 Unit/L) 65 Troponin I (0.000 - 0.045 NG/ML) 0.021 Total Protein (6.4 - 8.2 G/DL) 7.8 Albumin (3.4 - 5.0 G/DL) 3.6 Globulin (GM/dL) 4.2 Albumin/Globulin Ratio (1.2 - 2.2 RATIO) 0.9 L Hematology WBC (3.5 - 11.0 K/mm3) 5.4 RBC (4.70 - 6.10 M/mm3) 5.95 Hgb (12.3 - 15.9 G/DL) 15.0 Hct (35.8 - 46.7 %) 48.1 H MCV (86.3 - 98.9 Fl) 80.8 L MCH (28.9 - 34.4 pg) 25.2 L MCHC (32.1 - 34.5 G/DL) 31.2 L RDW (11.5 - 14.5 SD) 18.6 H Plt Count (150 - 450 K/mm3) 255 MPV (7.0 - 9.6 fL) 10.30 H Neut % (Auto) (40 - 76 %) 44.7 Lymph % (Auto) (20.5 - 51.1 %) 42.5 [place] % (Auto) (1.7 - 9.3 %) 10.3 H Eos % (Auto) (0.0 - 6.0 %) 2.1 Baso % (Auto) (0.0 - 2.0 %) 0.4 Neut # (Auto) (1.8 - 7.6 K/mm3) 2.4 Lymph # (Auto) (0.6 - 3.0 K/mm3) 2.3 [place] # (Auto) (0.2 - 1.5 K/mm3) 0.6 Eos # (Auto) (0.0 - 0.4 K/mm3) 0.1 Baso # (Auto) (0.0 - 0.2 K/mm3) 0.0 Abs Immat Gran (auto) (0.00 - 0.03 x10 3/uL) 0.00 Add Manual Diff (CRITERIA DIFF/SCN) NO Immature Gran % (0.0 - 5.0 %) 0.0 Nucleated RBC % (0.0 - 1.0 /100WBC%) 0.0 Recent Impressions: CAT SCAN - CT HEAD/BRAIN W/O CONT 11/29 1040 Report Impression - Status: SIGNED Entered: 11/29/2020 1118 IMPRESSION: No acute intracranial process seen. Impression By: [email or web address] Ye Norton M.D. CAT SCAN - CT ABD PELVIS W/CONT 11/29 1046 Report Impression - Status: SIGNED Entered: 11/29/2020 1123 IMPRESSION: No aortic dissection or aneurysm. Mild cardiomegaly. Impression By: [email or web address] Ye Lake M.D. CAT SCAN - CT CHEST W/CONTRAST 11/29 1046 Report Impression - Status: SIGNED Entered: 11/29/2020 1123 IMPRESSION: No aortic dissection or aneurysm. Mild cardiomegaly. Impression By: [email or web address] Ye Lake M.D. RADIOLOGY - XR CHEST 1 V 11/29 1100 Report Impression - Status: SIGNED Entered: 11/29/2020 1152 IMPRESSION: No focal consolidation. Impression By: [email or web address] Ye Jane M.D. ECG #1 Interpretation ECG Documented in MUSE Yes Date 11/29/20 Time 0935 Interpreted by ED physician OBI ECG Interpretation Normal rate, No acute ischemic changes, No STEMI Rate 83 Rhythm Pacemaker rhythm Procedures Stroke Thrombolytic Therapy rtPA Administration No, not indicated MDM-Stroke/CVA Free Text MDM Notes Free Text MDM Notes Patient presents to emergency department with strokelike symptoms. Onset of symptoms was over [address] head showed no signs of any hemorrhage. tPA considered but not given due to patient being outside of therapeutic window. Patient transferred due to capacity for further care of CVA. ED Course Medication(s) Ordered Medication(s) Ordered: Central Nervous System Agents Sig/Mira Start time Last Medication Dose Route Stop Time Status Admin Morphine Sulfate 4 MG X1ED STA 11/29 0934 DC 11/29 IV 11/29 0935 0944 Diagnostic Agents Sig/Mira Start time Last Medication Dose Route Stop Time Status Admin Iopamidol 0 .STK-MED ONE 11/29 1023 DC 11/29 .ROUTE 1106 Electrolytic, Caloric, And Winston Sig/Mira Start time Last Medication Dose Route Stop Time Status Admin Sodium Chloride 100 ML .STK-MED ONE 11/29 1107 DC 11/29 IV 11/29 1108 1107 Gastrointestinal Drugs Sig/Mira Start time Last Medication Dose Route Stop Time Status Admin Ondansetron HCl 4 MG X1ED STA 11/29 0934 DC 11/29 IV 11/29 0935 0944 Patient Discharge Departure Vital Signs/Condition Vital Signs First Documented: Result Date Time Pulse Ox 98 11/29 0940 B/P 182/125 11/29 0940 B/P Mean 144 11/29 0940 O2 Delivery Room air 11/29 0940 Temp 98.5 11/29 0940 Pulse 79 11/29 0940 Resp 19 11/29 0940 Last Documented: Result Date Time Pulse Ox 94 11/29 1345 B/P 161/111 11/29 1345 B/P Mean 127 11/29 1345 O2 Delivery Room air 11/29 1345 Temp 98.2 11/29 1345 Pulse 75 11/29 1345 Resp 18 11/29 1345 All vital signs available at the time of this entry have been reviewed. Clinical Impression Clinical Impression Primary Impression: CVA (cerebral vascular accident) Disposition Decision Transfer )( Request Time 1243 )( Request Date 11/29/20 Call Returned Time 1243 Spoke with: Emergency physician [facility] Transfer Accepted Yes Accepted by: Dr. [place] )( Acceptance Time 1243 )( Acceptance Date 11/29/20 Transfer Reason Capacity Patient Status Stable for transfer Patient Informed Yes Consent Obtained yes Consent Signed by: patient at 0702 RPT #: [id number] END OF REPORT [facility]
--- NOTE | 2024-05-02 20:59 | RAD REPORT ---
Exam:Elbow Right 3 View HISTORY: Right elbow pain FINDINGS: No fracture or dislocation seen
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
[2024-05-02] MEDS ORDERED: ACETAMINOPHEN 500 MG TAB ONE (21:08)
[2024-05-02 21:30] VITALS: BP 133/101; TEMP 98.1; O2SAT 100
== END 2024-05-02 21:25 | disposition home or self-care (01) ==
LOC: ER 18:33
DX: S50.01XA Contusion of right elbow, initial encounter (principal); V49.9XXA Car occupant (driver) (passenger) injured in unspecified traffic accident, initial encounter; Z95.0 Presence of cardiac pacemaker
CPT/HCPCS: 99284

== ENCOUNTER 2024-10-09 13:51 | Observation (INO) | payer OTHER, MEDICAID ==
--- OUTSIDE RECORDS SUMMARY | 2024-10-09 14:37 | XMS REPORT | Continuity of Care Document ---
Author Name Unknown Address [address] [address] [place] [address] [facility] [place] Address [address] [place] [address] Support Name Relationship Address Phone MAGI PARADA Daughter Unknown [phone] [place] [address] BALES, ALESIA SI Unknown VALERY BEAVERS [place] [address] [place] [address] [place] Unknown NAHID PARADA Nephew [address] [place] [address] NAHID PARADA Personal Relationship [address] [facility] [address] [place] [address] Gayle Jamison Relative [address] [place] [address] Allyson Nolen Sibling [address] [place] [address] Isauro Kahnen Friend UNK Joanie Valencia Friend Unknown LANETTE [place] [address] PAGE [place]NA[place] [address] GAYLE HARRIS Relative [address] [place] [address] Unavailable ALLYSON BALES G [address] [place] [address] Unavailable KANDIS PARADA E [address] [place] [address] Unavailable Kandis Lowe Child [address] [facility] [address] [place] [address] ELIOT MELLO Friend Unknown MAURO Grandparent Unknown Unavailable LINDA KATZ Personal Relationship Unknown + Unavailable Grandparent Unknown Care Team Providers Care Collections Officer Name Role Phone Pcp, Pcp Primary Care Physician Unavailab MILAN West Attending Clinician Unav MARION Alcaraz Attending Clinician Unava ilSEBLE Hurd Attending Clinician Unavailable TIFFANY ARELLANO Attending Clinician Unav ailTIFFANY Powell Attending Clinician Unav ailDAVID Lynn K.H. Attending Clinician UnavailJORGE Cee Attending Clinician Unavailable Milan Burns Attending Clinician Unavailable Wilberto BOYER, Sendil K.H. Attending Clinician + [phone] Pia Watts DO Attending Clinician +[phone] Ashlyn BOYER, Jackie Agustin Attending Clinician + BROOKS BARKER Attending Clinician Unavailab BROOKS Brooks Attending Clinician Unavailab francoise Barker PUMPER HEAD, Brooks Attending Clinician +[phone] Deena Hernandez MD Attending Clinician + [phone] Jose Mcgill MD Attending Clinician +[phone] Torie BOYER PhD, Stewart Attending Clinician + [phone] Milan Valverde MD Attending Clinician + Tatiana BOYER, Prema Napoles Attending Clinician +[phone] Bruna BOYER, Jose Restrepo Attending Clinician +[phone] Criss Engle MD Attending Clinician +[phone] Josef BOYER, Marion Graham Attending Clinician +[phone] Josef BOYER, Michael Muir Attending Clinician + [phone] MICHAEL DODD Attending Clinician Pelon lobo 2, [facility] Lab Attending Clinician Unavailable Vlad BOYER, Tiffany Attending Clinician + Ellis Munoz Radha Attending Clinician Donovan Parkinson Attending Clinician +[phone] DONOVAN BILLINGSLEY Attending Clinician Unavailable Sally BAKER, Flip Ordaz Attending Clinician Unavail able BJ WEISS Attending Clinician Unavailable Lindsey Myers MD, Evon Attending Clinician +[phone] Isela BOYER, Bj Attending Clinician +[phone] JOSEPH QUINONES Attending Clinician Unavailab Joseph Tovar DO Attending Clinician + [phone] Delicia Shaffer Attending Clinician Unavaila Abbie Munroe Attending Clinician Unavailabl e Doctor Unassigned, Tichigan Attending Clinician U Jorge Nelson Attending Clinician +[phone] KIM PATE Attending Clinician Unavailabl evette Montiel [facility], Rosa Maria Attending Clinician Pelon Petersen RN, Adilene Attending Clinician +[phone] CRISS LEYVA Attending Clinician Unavailable Jesse Wiggins Attending Clinician + [phone] Ric BOYER, Yared Baez Attending Clinician +[phone] Criss Leyva DO Attending Clinician +[phone] Ayan Dodd RN Attending Clinician Unavail able TAMERA WHITE Attending Clinician Unavailable TAMERA WHITE Attending Clinician Unavailable Michelle Miranda MD Attending Clinician +[phone] Heather BOYER, Juan Pulido Attending Clinici an Tamera White MD Attending Clinician +[phone] Torito BOYER, Garret Attending Clinician + Dain Villarreal MD Attending Clinician [phone] Akhil Barriga MD Attending Clinician +[phone] TIO PEREZ Attending Clinician Unavailable TIO PEREZ Attending Clinician Unavailable Soni Soliman NP Attending Clinician +[phone] Tio Perez MD Attending Clinician +[phone] MARY REYNAGA Attending Clinician Unavailab MARY Cruz Attending Clinician Unavailab Mary Cruz DO Attending Clinician +[phone] JONATHAN ZAPATA Attending Clinician UnavailGINO Caal Attending Clinician UnavailGINO Caal Attending Clinician UnavailJairo Fitzgerald Attending Clinician +[phone] Jacky BOYER, Gino Farmer Attending Clinician +[phone] Vernon Weller MD Attending Clinician +[phone] Lorena Hendricks MD Attending Clinician +[phone] REBECCA MICHELE Attending Clinician Unavaila DANNY Harrell Attending Clinician Nelly Kim Sarabia NP Attending Clinician +[phone] JEANNA KAMARA Attending Clinician Unavailable JEANNA KAMARA Attending Clinician Unavailable YARED LARIOS Attending Clinician UnavailDeysi Cuevas PA-C Attending Clinician +[phone] DEYSI BONE Attending Clinician Unavailable DEYSI BONE Attending Clinician Unavailable EMIL FREEMAN Attending Clinician Unavailab francoise Munoz Cardiomekimberly Schmidp Attending Clinician Donovan Parkinson Attending Clinician +[phone] Debby Solano Attending Clinician +[phone] Jorge Barone Attending Clinician +[phone] ROBERTO STOKES Attending Clinician UnavailROBERTO Poon Attending Clinician Unavailwoo Ladd MD, David Sullivan Attending Clinician + [phone], [facility] Attending Clinician Unavailable Kim Pate NP Attending Clinician + [phone] Doctor Unassigned, Tichigan Attending Clinician U loi Sanderson MD, Cornelia Attending Clinician +[phone] Neftali FORMSTONE FITTER, Jonathan Valderrama Attending Clinician +[phone] Albert BOYER, Seble Attending Clinician +[phone] KELLY KNOWLES Attending Clinician Unavailable Estela BOYER, Rebecca Attending Clinician + [phone] TANA WHITMORE Attending Clinician Unavailable Myranda FORMSTONE FITTER, Tana Saba Attending Clinician +[phone] CORNELIA SANDERSON Attending Clinician Unavailable Jennifer BOYER, Maria E Attending Clinician +[phone] JUAN HERNANDEZ Attending Clinician Unavailable Leoncio BOYER, Adrianna Ordaz Attending Clinician +[phone] ADRIANNA HEATH Attending Clinician Unavailable Page Seth RN Attending Clinician Unavailab francoise Soliz ACNP, Jesse Attending Clinician + [phone] Criss Leyva DO Attending Clinician +[phone] Bj Weiss MD Attending Clinician +[phone] KIMI YADAV Attending Clinician Unavailwoo Yadav MD, Kimi Vázquez Attending Clinician +[phone] Asad Armendariz MD Attending Clinician +[phone] HALLIE GREENBERG Attending Clinician Unaobinna Greenberg MD, Hallie Brandt Attending Clinician + Lilli Mcneil RN Attending Clinician + [phone] Kim Jones MD Attending Clinician +[phone] Doris Amaral MD Attending Clinician +[phone] PRUDENCE COHEN Attending Clinician Unavailorlin FINNEGAN, Prudence Attending Clinician Ernie BOYER, Sunshine Hernández Attending Clinician +[phone] KIM JONES Attending Clinician Nahum Mata RN, Chelo Attending Clinician Unavailable Elise BOYER, Prieto Vanegas Attending Clinician [phone] SUNSHINE KLEIN Attending Clinician UnavailSUNSHINE Curran Attending Clinician Unavaila rebeca Gonzalez RN, Alisa Saba Attending Clinician PIA Pringle Attending Clinician Unavailable Singer CORTEZ, Pia Attending Clinician + Maynor BOYER, Tomas Diaz Attending Clinician + [phone] Abilio FORMSTONE FITTER, Denis Attending Clinician +[phone] Merry BAKER, Erica Choudhary Attending Clinician +[phone] MIKO MONTALVO Attending Clinician Unavailable Joseph Quinones DO Attending Clinician +[phone] TONYA CARRION Attending Clinician Unavailable Tc FORMSTONE FITTER, Karine Farmer Attending Clinician +[phone] Jose BOYER, Steven Attending Clinician +[phone] Stevenson BOYER, Fran Attending Clinician +[phone] Ponce BOYER, Tonya Attending Clinician +[phone] Piter BAKER, Adilene Attending Clinician Unavailwoo diaz Laurel, Nephrology Attending Clinician Unavaila ble 1, [facility] Sleep Lab Bed Attending Clinician Unavail able Only, [facility] Test Attending Clinician Unavailable REBECCA PALMER Attending Clinician Unavailabl Janina Stephens DO Attending Clinician + Artemio [facility], Shahnaz Saba Attending Clinician [phone] Bret BOYER, Elizabet Sanchez Attending Clinician Heather BOYER, Juan Pulido Attending Clinici an Visit, [facility] Nurse Attending Clinician Unavailable Ruben BOYER, Michelle Attending Clinician +[phone] Major BAKER, Radha Hernández Attending Clinician Unavaila ble Pob, [facility] Main Attending Clinician UnavailMARIA E Long Attending Clinician Unavailable Jairo JORDAN Attending Clinician Unavailable Jairo Cuellar Attending Clinician +[phone] Oh Espinoza MD Attending Clinician +[phone] Magdi BAKER, Yvonne Saba Attending Clinician Unavail able Jonel FINNEGAN, Henrique Cespedes Attending Clinician +[phone] Romel Burns OT Attending Clinician Unava maria dolores Stokes MD, Roberto Saba Attending Clinician +[phone] Ana RIVER GUIDE, Austin W Attending Clinician Unavail able Vanita BOYER, Janiya Attending Clinician +[phone] OH ESPINOZA Attending Clinician Unavailable ALICIA TELLEZ Attending Clinician Unavailable ALICIA TELLEZ Attending Clinician Unavailable Jose BOYER, Rafy Middleton Attending Clinician RAFY UGARTE Attending Clinician Un available Judi BOYER, Cate Attending Clinician +[phone] CATE POST Attending Clinician Unavailable UNKNOWN, ATTENDING Attending Clinician Unavailab le Unknown, Attending Attending Clinician Unavailab LORETA Rosen Attending Clinician Unav savita Degroot RN, Macy Attending Clinician Unavailable Izaiah Hobbs DO Attending Clinician +[phone] Kalen Soto MD, Thelma Attending Clinician +[phone] Israel Morgan MD Attending Clinician +[phone] Ursula THOMPSONP, Taz Miller Attending Clinician +[phone] FERNANDA SANDERS Attending Clinician Unavailable MOHSEN VASQUES Attending Clinician Unavail able Jason FINNEGAN, Destiny Attending Clinician +[phone] Nurse, [facility] P[facility] Immunization Attending Clinician Unavailable Mohsen Vasques DO Attending Clinician +[phone] DEBBY BROWN Attending Clinician Unavailable Doris Christensen RN Attending Clinician Unavailable KARINE LOJA Attending Clinician Unavaila LUIS ANGEL John Attending Clinician Unavailable Luis Angel Paul Attending Clinician + [phone] OREN DALAL Attending Clinician Unavailable Oren Dalal MD Attending Clinician +[phone] Claudia BEE, Sherrie Elias Attending Clinician +[phone] Adilene Petersen RN Attending Clinician +[phone], [facility] Nurse Attending Clinician Unaedgardo lobo Nurse, Darío Meek Attending Clinician Unavailorlin Trinh MD, Fran Culver Attending Clinician [phone] Jackelyn Obregon Attending Clinician +[phone] Stephan Juan Attending Clinician Unavailable Ayush Vieira MD Attending Clinician Estefani Dillon MD Attending Clinician +[phone] DORIS AMARAL Attending Clinician Unavailable Precious Bae Attending Clinician Unavailable Isac Rosue Attending Clinician Unavailable Yared Scott Attending Clinician Unavailable MILAN RAYO Attending Clinician UnavailMilan Engel Attending Clinician +[phone] AYUSH VIEIRA Attending Clinician Unavail able AYUSH VIEIRA Attending Clinician Unavail able CHUCKIE RODRÍGUEZ Attending Clinician Unavail able Benoit Tello Attending Clinician Unavailabl CM De Dios Attending Clinician Unavailabl MARIA E Berry Attending Clinician Unavailable JANICE VINES Attending Clinician Unavailable LISANDRA ADAMS Attending Clinician Unavailable JOSÉ MIGUEL PARKS Attending Clinician Nelly vailable RADIOLOGY Attending Clinician Unavailable JOSE MARLOW Attending Clinician Unavailable DENIS KNOX Attending Clinician Unavailable ABBY COHEN Attending Clinician Unavailable JANIYA WALDRON Attending Clinician Unavailable SALOME GORDON Attending Clinician Unavailable JO RANDLE Attending Clinician Unavail able MILAN VALVERDE Admitting Clinician Unav ailable SEBLE PRICE Admitting Clinician Unavailable LADD, SENDIL K.HTej Admitting Clinician UnavailMilan Hernandez MD Admitting Clinician + BJ WEISS Admitting Clinician Unavailable Bj Weiss MD Admitting Clinician +[phone] JOSEPH QUINONES Admitting Clinician Unavailab TIFFANY Andre Admitting Clinician Unav ailable YARED LARIOS Admitting Clinician Unavailwoo Larios MD, Yared Baez Admitting Clinician +[phone] AUTUMN, CRISS Admitting Clinician Unavailable Criss Leyva DO Admitting Clinician +[phone] TIO PEREZ Admitting Clinician Unavailable Tio Preez MD Admitting Clinician +[phone] GINO RICO Admitting Clinician UnavailGino Caal MD Admitting Clinician +[phone] EMIL FREEMAN Admitting Clinician Unavailab JUDAH Coppola Admitting Clinician Unavailab JORGE Epsinosa Admitting Clinician Unavailable Bj Weiss MD Admitting Clinician +[phone] KIMI YADAV Admitting Clinician UnavailHALLIE Price BRANDT Admitting Clinician Unav Hallie Quispe MDahim Admitting Clinician + MARY REYNAGA Admitting Clinician Unavailab GINO Hernandez Admitting Clinician UnavailCriss Ott DO Admitting Clinician +[phone] FRAN GAMINO Admitting Clinician Unavailab PIA Oenal Admitting Clinician Unavailable Oh Espinoza MD Admitting Clinician +[phone] OH ESPINOZA Admitting Clinician Unavailable Rafy Ugarte MD Admitting Clinician RAFY UGARTE Admitting Clinician Un available Judi BOYER [facility] Admitting Clinician +[phone] JUDI ESVIN Admitting Clinician Unavailable Jairo JORDAN Admitting Clinician Unavailable Thelma Gallardo MD Admitting Clinician +[phone] DEBBY BROWN Admitting Clinician Unavailable LUIS ANGEL JIMENEZ Admitting Clinician Unavailable KIM JONES Admitting Clinician UnaOREN Hernadez Admitting Clinician Unavailable Oren Dalal MD Admitting Clinician +[phone] JUAN HERNANDEZ Admitting Clinician Unavailable Juan Hernandez MD Admitting Clinici an Stephan Juan Admitting Clinician Unavailable Physician, No Primary or Family Admitting Clinic sarah Unavailable Estefani Dillon MD Admitting Clinician [phone] ESTEFANI DILLON Admitting Clinician Unavailable Precious Bae Admitting Clinician Unavailable Yared Scott Admitting Clinician Unavailable KELLY KNOWLES Admitting Clinician Unavailable Benoit Tello Admitting Clinician UnavailMARIA E Shields Admitting Clinician Unavailable LISANDRA ADAMS Admitting Clinician Unavailable JOSÉ MIGUEL PARKS Admitting Clinician Nelly ADRIANNA White Admitting Clinician Unavailable DENIS KNOX Admitting Clinician Unavailable DORIS AMARAL Admitting Clinician Unavailable TRISHA LOPES Admitting Clinician Unavailable JANIYA WALRDON Admitting Clinician Unavailable Payers Payer Name Policy Type Policy Number Effective Date Expirati on Date Source [facility] MEDICARE DUAL SN OON Medicare [id number] 2024 00:00:00 [facility] Medicaid [id number] 2024 00:00:00 MEDICARE PART A \\T\\ B [id number] 2002 00:00:00 [facility] [id number] 2022 00:00:00 [place] [id number] 2011 00:00:00 [id number]00 [facility] [id number] 00:00:00 Problems Condition Name Condition Details Condition Category Status Onset Date Resolution Date Last Treatment Date Treating Clinician Comments Source Diabetes mellitus Diabetes mellitus Disease Recurre nce 10-03 00:00: 00 Maxine Gill Chest pain, unspecifie d type Chest pain, unspecifie d type Disease Active 10-01 00:00: 00 Maxine Fry Epic Unstable angina Unstable angina Disease Active -16 00:00: 00 [facility] Atrial flutter Atrial flutter Disease Active -08 00:00: 00 [facility] Palpitatio ns Palpitatio ns Disease Active 07 00:00: 00 [facility] Pacemaker malfunctio n, initial encounter Pacemaker malfunctio n, initial encounter Disease Active 2023-08 00:00: 00 [facility] Type 2 diabetes mellitus with diabetic neuropathy , without long-term current use of insulin Type 2 diabetes mellitus with diabetic neuropathy , without long-term current use of insulin Disease Active 2023-08 2 00:00: 00 [facility] Congestive heart failure, unspecifie d HF chronicity , unspecifie d heart failure type Congestive heart failure, unspecifie d HF chronicity , unspecifie d heart failure type Disease Active 2023-08 2 00:00: 00 [facility] 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 Disease Active 903 00:00: 00 [facility] Morbid obesity Morbid obesity Disease Active 9 00:00: 00 [facility] Effusion of left knee Effusion of left knee Disease Active 8 00:00: 00 [facility] Pain and swelling of left knee Pain and swelling of left knee Disease Active 8- 00:00: 00 [facility] Primary osteoarthr itis of left knee Primary osteoarthr itis of left knee Disease Active 8- 00:00: 00 [facility] Internal hemorrhoid s Internal hemorrhoid s Disease Active 04-09 00:00: 00 [facility] Presence of cardiac resynchron ization therapy defibrilla tor (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) Presence of cardiac resynchron ization therapy defibrilla tor (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-D) Disease Active -19 00:00: 00 [facility] GIUSEPPE (acute kidney injury) GIUSEPPE (acute kidney injury) Disease Active 2021-08 00:00: 00 [facility] Obesity (BMI 30-39.9) Obesity (BMI 30-39.9) Disease Active 2021-08 00:00: 00 [facility] GIUSEPPE (acute kidney injury) GIUSEPPE (acute kidney injury) Disease Active 2022-1 1-05 00:00: 00 [facility] Somnolence Somnolence Disease Active 2021-08 1-03 00:00: 00 [facility] SOB (shortness of breath) SOB (shortness of breath) Disease Active 2021-08 0-31 00:00: 00 [facility] CHF (congestiv e heart failure), NYHA class IV, acute, combined CHF (congestiv e heart failure), NYHA class IV, acute, combined Disease Active 2021-08 0-30 00:00: 00 [facility] Encounter for colorectal cancer screening Encounter for colorectal cancer screening Disease Active 2021-08 0-25 00:00: 00 Overview: Formattin g of this note might be different from the original. 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 Disease Active 8-04 00:00: 00 [facility] Troponin I above reference range Troponin I above reference range Disease Active 8-04 00:00: 00 [facility] Hypertensi ve emergency Hypertensi ve emergency Disease Active 8-04 00:00: 00 [facility] 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 Disease Active 8-04 00:00: 00 [facility] Chest pain, unspecifie d type Chest pain, unspecifie d type Disease Active 8-03 00:00: 00 [facility] Chest pain Chest pain Disease Active 0 5-12 00:00: 00 [facility] Decreased activities of daily living (ADL) Decreased activities of daily living (ADL) Disease Active 3-22 00:00: 00 [facility] History of cerebrovas cular accident (CVA) with residual deficit History of cerebrovas cular accident (CVA) with residual deficit Disease Active 3-22 00:00: 00 [facility] PAF (paroxysma l atrial fibrillati on) PAF (paroxysma l atrial fibrillati on) Disease Active 3-07 00:00: 00 [facility] NSTEMI (non-ST elevated myocardial infarction ) NSTEMI (non-ST elevated myocardial infarction ) Disease Active 2-19 00:00: 00 [facility] Left-sided weakness Left-sided weakness Disease Active 5-17 00:00: 00 [facility] Noncomplia nce Noncomplia nce Disease Active 5-11 00:00: 00 [facility] Dyslipidem ia Dyslipidem ia Disease Active 3-11 00:00: 00 [facility] Chronic left-sided low back pain with sciatica, sciatica laterality unspecifie d Chronic left-sided low back pain with sciatica, sciatica laterality unspecifie d Disease Active 2-12 00:00: 00 [facility] Cardiac resynchron ization therapy defibrilla tor (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-D) in place Cardiac resynchron ization therapy defibrilla tor (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-D) in place Disease Active 1-13 00:00: 00 [facility] Heart block Heart block Disease Recurre nce 0 1-05 00:00: 00 [facility] Chest pain of unknown etiology Chest pain of unknown etiology Disease Active 0 8-31 00:00: 00 [facility] Stage 3 chronic kidney disease Stage 3 chronic kidney disease Disease Active 0 4-18 00:00: 00 [facility] Diverticul osis large intestine w/o perforatio n or abscess w/o bleeding Diverticul osis large intestine w/o perforatio n or abscess w/o bleeding Disease Active 02-19 00:00: 00 [facility] PRAVEEN on CPAP PRAVEEN on CPAP Disease Active 14 00:00: 00 [facility] LVH (left ventricula r hypertroph y) LVH (left ventricula r hypertroph y) Disease Active 09-22 00:00: 00 [facility] Nonischemi c cardiomyop athy Nonischemi c cardiomyop athy Disease Active 09-22 00:00: 00 [facility] Metabolic syndrome Metabolic syndrome Disease Active 2014-08 00:00: 00 [facility] ACC/AHA stage B congestive heart failure ACC/AHA stage B congestive heart failure Disease Active 2014-08 00:00: 00 [facility] PRAVEEN (obstructi ve sleep apnea) PRAVEEN (obstructi ve sleep apnea) Disease Active 2014-08 00:00: 00 [facility] Essential hypertensi on Essential hypertensi on Disease Active 2014-08 00:00: 00 [facility] Type 2 diabetes mellitus with complicati on, without long-term current use of insulin Type 2 diabetes mellitus with complicati on, without long-term current use of insulin Disease Active 2014-08 00:00: 00 [facility] 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 Disease Active 2014-08 00:00: 00 [facility] CVA, old, hemiparesi s CVA, old, hemiparesi s Disease Active 2014-08 00:00: 00 [facility] Chronic dental pain Chronic dental pain Disease Active 2014-08 00:00: 00 [facility] Chronic dental pain Chronic dental pain Disease Active 2014-08 00:00: 00 [facility] Chronic combined systolic and diastolic CHF, NYHA class 2 Chronic combined systolic and diastolic CHF, NYHA class 2 Disease Resolve d 09-22 00:00: 00 2024-08-17 00:00:00 2024-08-17 14:41:12 [facility] Chest pain, unspecifie d type Chest pain, unspecifie d type Disease Resolve d 0 7-16 00:00: 00 2022-03-04 00:00:00 2022-03-04 18:46:31 [facility] Stroke determined by clinical assessment Stroke determined by clinical assessment Disease Resolve d 3-02 00:00: 00 2022-03-04 00:00:00 2022-03-04 18:46:35 [facility] Elevated troponin I level Elevated troponin I level Disease Resolve d 2020-08 2-20 00:00: 00 2022-03-04 00:00:00 2022-03-04 18:46:42 [facility] Obesity (BMI 30-39.9) Obesity (BMI 30-39.9) Disease Resolve d 2020-08 0-16 00:00: 00 2022-03-04 00:00:00 2022-03-04 18:46:41 [facility] Morbid obesity Morbid obesity Disease Resolve d 7-24 00:00: 00 2022-03-04 00:00:00 2022-03-04 18:46:40 [facility] Stroke, acute, embolic Stroke, acute, embolic Disease Resolve d 0 5-17 00:00: 00 2022-03-04 00:00:00 2022-03-04 18:46:38 [facility] Acute CVA (cerebrova scular accident) Acute CVA (cerebrova scular accident) Disease Resolve d 0 3-24 00:00: 00 2022-03-04 00:00:00 2022-03-04 18:46:20 [facility] Acute on chronic systolic congestive heart failure Acute on chronic systolic congestive heart failure Disease Resolve d 2019-08 2-29 00:00: 00 2022-03-04 00:00:00 2022-03-04 18:46:03 [facility] Acute on chronic systolic and diastolic heart failure, NYHA class 3 Acute on chronic systolic and diastolic heart failure, NYHA class 3 Disease Resolve d 2019-08 0-14 00:00: 00 2022-03-04 00:00:00 2022-03-04 18:46:16 [facility] GIUSEPPE (acute kidney injury) GIUSEPPE (acute kidney injury) Disease Resolve d 4-20 00:00: 00 2021 00:00:00 2021 18:43:48 [facility] Acute right-side d CHF (congestiv e heart failure) Acute right-side d CHF (congestiv e heart failure) Disease Resolve d 4-01 00:00: 00 2021 00:00:00 2021 18:43:47 [facility] Elevated troponin Elevated troponin Disease Resolve d 2-26 00:00: 00 2021 00:00:00 2021 18:43:42 [facility] Acute on chronic heart failure, unspecifie d heart failure type Acute on chronic heart failure, unspecifie d heart failure type Disease Resolve d 1-20 00:00: 00 2021 00:00:00 2021 18:43:38 [facility] SOB (shortness of breath) SOB (shortness of breath) Disease Resolve d 1-12 00:00: 00 2021 00:00:00 2021 18:44:15 [facility] Congestive heart failure, unspecifie d HF chronicity , unspecifie d heart failure type Congestive heart failure, unspecifie d HF chronicity , unspecifie d heart failure type Disease Resolve d 1-11 00:00: 00 2021 00:00:00 2021 18:44:12 [facility] COVID-19 virus infection COVID-19 virus infection Disease Resolve d 2020-08 2-20 00:00: 00 2021 00:00:00 2021 18:43:50 [facility] Hypertensi ve emergency Hypertensi ve emergency Disease Resolve d 2020-08 2-20 00:00: 00 2021 00:00:00 2021 18:43:52 [facility] CHF with unknown LVEF CHF with unknown LVEF Disease Resolve d 2020-08 1-29 00:00: 00 2021 00:00:00 2021 18:44:09 [facility] 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) Disease Resolve d 2020-08 0-03 00:00: 00 2021 00:00:00 2021 18:44:06 [facility] Pulmonary edema with congestive heart failure Pulmonary edema with congestive heart failure Disease Resolve d 7-23 00:00: 00 2021 00:00:00 2021 18:44:17 [facility] Chest pain Chest pain Disease Resolve d 7-19 00:00: 00 2021 00:00:00 2021 18:44:19 [facility] Non-intrac table vomiting with nausea, unspecifie d vomiting type Non-intrac table vomiting with nausea, unspecifie d vomiting type Disease Resolve d 2-06 00:00: 00 2021 00:00:00 2021 18:44:29 [facility] Cardiomyop athy Cardiomyop athy Disease Resolve d 1-21 00:00: 00 2021 00:00:00 2021 18:44:32 [facility] Diabetic eye exam Diabetic eye exam Disease Resolve d 2016-0 7-11 00:00: 00 2021 00:00:00 2021 18:44:34 [facility] Atypical chest pain Atypical chest pain Disease Resolve d 2015-08 2-20 00:00: 00 2021 00:00:00 2021 18:44:36 [facility] ICD (implantab le cardiovert er-defibri llator) in place ICD (implantab le cardiovert er-defibri llator) in place Disease Resolve d 1-12 00:00: 00 2021-07-19 00:00:00 2021-07-19 15:26:26 [facility] Systolic CHF, acute on chronic Systolic CHF, acute on chronic Disease Resolve d 2020-08 0-15 00:00: 00 2021-06-04 00:00:00 2021-06-04 15:17:28 [facility] Heart failure Heart failure Disease Resolve d 2020-08 0-06 00:00: 00 2021-06-04 00:00:00 2021-06-04 15:17:49 [facility] NSTEMI (non-ST elevated myocardial infarction ) NSTEMI (non-ST elevated myocardial infarction ) Disease Resolve d 2-26 00:00: 00 2021-06-04 00:00:00 2021-06-04 15:17:40 [facility] PAF (paroxysma l atrial fibrillati on) PAF (paroxysma l atrial fibrillati on) Disease Resolve d 8-09 00:00: 00 2021-06-04 00:00:00 2021-06-04 15:17:35 [facility] Myocardial infarction type 2 Myocardial infarction type 2 Disease Resolve d 1-29 00:00: 00 2021-06-04 00:00:00 2021-06-04 15:17:45 [facility] Acute decompensa breanne heart failure Acute decompensa breanne heart failure Disease Resolve d 8-10 00:00: 00 2021-04-09 00:00:00 2021-04-09 14:32:57 [facility] Uncontroll ed hypertensi on Uncontroll ed hypertensi on Disease Resolve d 0 1-25 00:00: 00 2021-04-09 00:00:00 2021-04-09 14:32:43 [facility] Hospital discharge follow-up Hospital discharge follow-up Disease Resolve d 6-03 00:00: 00 2021-02-07 00:00:00 2021-02-07 19:03:57 [facility] Hypertensi ve urgency Hypertensi ve urgency Disease Resolve d 3-13 00:00: 00 2021-02-07 00:00:00 2021-02-07 19:03:44 [facility] Obesity (BMI 30-39.9) Obesity (BMI 30-39.9) Disease Resolve d 1-26 00:00: 00 2021-02-07 00:00:00 2021-02-07 19:03:39 [facility] Hypotensio n due to hypovolemi a Hypotensio n due to hypovolemi a Disease Resolve d 1-13 00:00: 00 2021-02-07 00:00:00 2021-02-07 19:03:26 [facility] Elevated troponin Elevated troponin Disease Resolve d 1-12 00:00: 00 2021-02-07 00:00:00 2021-02-07 19:03:24 [facility] GIUSEPPE (acute kidney injury) GIUSEPPE (acute kidney injury) Disease Resolve d 2019-08 2-29 00:00: 00 2021-02-07 00:00:00 2021-02-07 19:03:22 [facility] Renal insufficie ncy Renal insufficie ncy Disease Resolve d 0 2-27 00:00: 00 2021-02-07 00:00:00 2021-02-07 19:03:32 [facility] Hypertensi ve emergency Hypertensi ve emergency Disease Resolve d 0 1-29 00:00: 00 2021-02-07 00:00:00 2021-02-07 19:03:30 [facility] Chest pain Chest pain Disease Resolve d 5-10 00:00: 00 2021-02-07 00:00:00 2021-02-07 19:03:35 [facility] Morbid obesity with body mass index of 40.0-49.9 Morbid obesity with body mass index of 40.0-49.9 Disease Resolve d 4-06 00:00: 00 2021-02-07 00:00:00 2021-02-07 19:03:37 [facility] Troponin I above reference range Troponin I above reference range Disease Resolve d 9- 00:00: 00 2020-05-09 00:00:00 2020-05-09 20:01:04 [facility] Elevated troponin Elevated troponin Disease Resolve d 5-15 00:00: 00 2020-05-09 00:00:00 2020-05-09 20:00:07 [facility] Hypertensi ve urgency Hypertensi ve urgency Disease Resolve d 08 00:00: 00 2020-05-09 00:00:00 2020-05-09 20:00:13 [facility] Headache Headache Disease Resolve d - 00:00: 00 2020-05-09 00:00:00 2020-05-09 20:00:10 [facility] Congestion of nasal sinus Congestion of nasal sinus Disease Resolve d -06 00:00: 00 2020-05-09 00:00:00 2020-05-09 20:00:00 [facility] Viral URI with cough Viral URI with cough Disease Resolve d 2-06 00:00: 00 2020-05-09 00:00:00 2020-05-09 20:00:54 [facility] Rectal bleeding Rectal bleeding Disease Resolve d 9- 00:00: 00 2020-05-09 00:00:00 2020-05-09 20:01:01 [facility] GIUSEPPE (acute kidney injury) GIUSEPPE (acute kidney injury) Disease Resolve d 2-28 00:00: 00 2020-05-09 00:00:00 2020-05-09 19:59:50 [facility] Blood pressure instabilit y Blood pressure instabilit y Disease Resolve d 2-15 00:00: 00 2020-05-09 00:00:00 2020-05-09 19:59:53 [facility] Morbid obesity with body mass index of 50 or higher Morbid obesity with body mass index of 50 or higher Disease Resolve d 4-06 00:00: 00 2020-05-09 00:00:00 2020-05-09 20:00:36 [facility] Hypertensi ve emergency, no CHF Hypertensi ve emergency, no CHF Disease Resolve d 2015-08 00:00: 00 2020-05-09 00:00:00 2020-05-09 20:00:12 [facility] Obesity Obesity Disease Resolve d 2014-08 00:00: 00 2020-05-09 00:00:00 2020-05-09 20:01:15 [facility] Atypical chest pain Atypical chest pain Disease Resolve d 2015-08 0 00:00: 00 2016-06-10 00:00:00 2016-06-10 07:48:15 [facility] Hypertensi on, malignant Hypertensi on, malignant Disease Resolve d 01-21 00:00: 00 2016-06-10 00:00:00 2016-06-10 07:48:22 [facility] Hypertensi ve urgency Hypertensi ve urgency Disease Resolve d 12-24 00:00: 00 2016-06-10 00:00:00 2016-06-10 07:48:27 [facility] Type 2 diabetes mellitus Type 2 diabetes mellitus Disease Resolve d 12-24 00:00: 00 2016-06-10 00:00:00 2016-06-10 07:48:49 [facility] Fever Fever Disease Resolve d 12-23 00:00: 00 2016-06-10 00:00:00 2016-06-10 07:48:33 [facility] Chest pain Chest pain Disease Resolve d 08-28 00:00: 00 2016-06-10 00:00:00 2017-09-17 10:03:23 [facility] Shortness of breath Shortness of breath Disease Resolve d 2014-08 00:00: 00 2016-06-10 00:00:00 2016-06-10 07:48:56 [facility] Chest discomfort Chest discomfort Disease Resolve d 2014-08 00:00: 00 2016-06-10 00:00:00 2016-06-10 07:49:00 [facility] Allergies, Adverse Reactions, Alerts Allergy Name Allergy Type Status Severity Reaction(s) Onset Date Inactive Date Treating Clinician Comments Source No Known Allergie s DA Active U 11-30 00:00: 00 [facility] No Known Allergie s DA Active U 11-30 00:00: 00 [facility] No Known Allergie s DA Active U 11-29 00:00: 00 [facility] Isosorbi de Mononitr ate Propensi ty to adverse reaction s Active Other - See comments 04-04 00:00: 00 Severe hypotensi on, likely from severe LVH per Dr. Sanderson. [facility] ISOSORBI DE MONONITR ATE DRUG INGREDI Active Other-Cmnt 04-04 00:00: 00 [facility] No Known Allergie s DA Active U 11-10 00:00: 00 [facility] Family History Family Member Diagnosis Comments Start Date Stop Date Sourc e Natural father Diabetes [facility] Natural father [facility] Natural father Hypertension [facility] Natural mother CHF (congestive hear t failure) [facility] Natural mother Depression [facility] Natural mother Diabetes [facility] Hy[facility] Natural sister Heart [facility] Social History Social Habit Start Date Stop Date Quantity Comments Source Gender identity Juan Daniel gary [facility] Sexual orientation [facility] History of tobacco use Passive smoker [facility] History SDOH Alcohol Frequency [facility] History SDOH Alcohol Std Drinks [facility] History SDOH Alcohol Binge [facility] Alcoholic beverage intake 2024-10-02 00:00:00 2024-10-02 00:00:00 [facility] History of Social function 2024-10-02 00:00:00 2024-10-02 00:00:00 [facility] Tobacco use and exposure 2024-05-15 00:00:00 2024-05-15 00:00:00 Smokeless tobacco non-user [facility] Alcohol intake 2023-11-18 00:00:00 2023-11-18 00:00:00 Ex-drinker (finding) [facility] Exposure to SARS-CoV-2 (event) 2022-11-18 00:00:00 2022-11-28 09:00:[address] [facility] History SDOH Transport Med 2022-05-28 00:00:00 2022-05-28 00:00:[address] [facility] History SDOH Transport Non-Med 2022-05-28 00:00:00 2022-05-28 00:00:[address] [facility] History SDOH Financial 2022-05-12 00:00:00 2022-05-12 00:00:[address] [facility] History SDOH Food Worry 2022-05-12 00:00:00 2022-05-12 00:00:[address] [facility] History SDOH Food Scarcity 2022-05-12 00:00:00 2022-05-12 00:00:[address] [facility] Alcohol Comment 2021-05-22 00:00:00 2021-05-22 00:00:00 1 cup of whiskey but last dirnk in December [facility] Education 2020-04-30 00:00:00 2020-04-30 00:00:[address] [facility] Sex assigned at 1965 00:00:00 1965 00:00:[address] [facility] Smoking Status Start Date Stop Date Source Never smoked tobacco [facility] Medications Ordered Medication Name Filled Medication Name Start Date Stop Date Current Medication? Ordering Clinician Indication Dosage Frequency Signature (SIG) Comments Components Source furosemide (Lasix) 40 MG tablet furosemide (Lasix) 40 MG tablet 10-03 16:27: 08 Yes 60mg QD Take 60 mg by mouth 1 time each day. Maxine Gill lisinopril 5 MG tablet lisinopril 5 MG tablet 10-03 16:27: 08 Yes 5mg QD Take 5 mg by mouth 1 time each day. Maxine Gill metoprolol succinate XL (Toprol-XL) 25 MG 24 hr tablet metoprolol succinate XL (Toprol-XL) 25 MG 24 hr tablet 10-03 16:27: 08 Yes 25mg QD Take 25 mg by mouth 1 time each day. Do not crush or chew. Maxine Gill omeprazole (PriLOSEC) [address] capsule omeprazole (PriLOSEC) [address] capsule 10-03 16:27: 08 Yes 40mg Take 40 mg by mouth in the morning. Take before meals. Do not crush or chew. Maxine Gill spironolact one (Aldactone) 25 MG tablet spironolact one (Aldactone) 25 MG tablet 10-03 16:27: 08 Yes 25mg QD Take 25 mg by mouth 1 time each day. Maxine Gill methocarbam ol (Robaxin) 500 MG tablet methocarbam ol (Robaxin) 500 MG tablet 10-03 16:27: 08 Yes 500mg Q.[id number] 3D Take 500 mg by mouth 3 times a day as needed for muscle spasms. Maxine Gill allopurinol (Zyloprim) 300 MG tablet allopurinol (Zyloprim) 300 MG tablet 10-03 16:27: 08 Yes 300mg QD Take 300 mg by mouth 1 time each day. Maxine Gill acetaminoph en-codeine (Tylenol w/ Codeine #3) 300-30 MG tablet acetaminoph en-codeine (Tylenol w/ Codeine #3) 300-30 MG tablet 10-03 16:27: 08 Yes 1{tbl} Q.5D Take 1 tablet by mouth 2 times a day as needed for severe pain (7-10). Maxine Gill apixaban (Eliquis) 5 MG tablet apixaban (Eliquis) 5 MG tablet 10-03 10:30: 00 Yes 5mg Q.5D Take 5 mg by mouth in the morning and 5 mg in the evening. Maxine Gill potassium chloride IVPB 10 mEq potassium chloride IVPB 10 mEq 10-03 05:15: 00 10-03 07:03 :00 No 10meq 10 mEq, Intravenou s, at 50 mL/hr, Administer over 1 Hours, Once, On Thu10/03/24 at 0515, For 1 dose, Central-li ne infusion highly recommende d for infusions >10 mEq/hour For central line administra tion only. Maxine Gill potassium chloride CR (Klor-Con M20) ER tablet 40 mEq potassium chloride CR (Klor-Con M20) ER tablet 40 mEq 10-03 05:00: 00 10-03 06:03 :00 No 40meq 40 mEq, Oral, Once, On Thu10/03/24 at 0500, For 1 dose, For patients able to take medication s orally or via feeding tube >/= 14 [place], may dissolve each 20 mEq tablet in 4 oz of water. Allow about 2 minutes for the tablets to disintegra te. Stir before giving to prepare slurry and administer . Please exclude patient's with feeding tube less than 14 [place] (Dobhoff, J-tube, etc) and pediatric and patients Do not crush or chew. Maxine Gill magnesium sulfate IVPB 2 g magnesium sulfate IVPB 2 g 10-03 04:45: 00 10-03 08:02 :00 No 2g 2 g, Intravenou s, at 25 mL/hr, Administer over 2 Hours, Once, On Thu10/03/24 at 0445, For 1 dose Maxine Gill atorvastati n (Lipitor) 80 MG tablet atorvastati n (Lipitor) 80 MG tablet 10-03 00:00: 00 11-02 23:59 :00 No 40mg QD Take 0.5 tablets by mouth 1 time each day. Maxine Gill oxyCODONE (Roxicodone ) immediate release tablet 2.5 mg oxyCODONE (Roxicodone ) immediate release tablet 2.5 mg 10-02 16:35: 00 10-02 16:43 :00 No 2.5mg 2.5 mg, Oral, Once, On Thu10/02/24 at 1635, For 1 dose Maxine Gill diclofenac sodium 1 % gel 2 g diclofenac sodium 1 % gel 2 g 10-02 09:00: 00 Yes 2g Q.[id number] 3D 2 g, Topical, 3 times daily, First dose on Thu10/02/24 at 0900, Apply to painful area(s) Maxine Gill pantoprazol e (ProtoNix) EC tablet 40 mg pantoprazol e (ProtoNix) EC tablet 40 mg 10-02 07:30: 00 Yes 40mg 40 mg, Oral, Daily before breakfast, First dose on Thu10/02/24 at 0730, Do not crush, chew, or split. Maxine Gill potassium chloride CR (Klor-Con M20) ER tablet 40 mEq potassium chloride CR (Klor-Con M20) ER tablet 40 mEq 10-02 06:45: 00 10-02 11:53 :00 No 40meq 40 mEq, Oral, Once, On Thu10/02/24 at 0645, For 1 dose, For patients able to take medication s orally or via feeding tube >/= 14 [place], may dissolve each 20 mEq tablet in 4 oz of water. Allow about 2 minutes for the tablets to disintegra te. Stir before giving to prepare slurry and administer . Please exclude patient's with feeding tube less than 14 [place] (Dobhoff, J-tube, etc) and pediatric and patients Do not crush or chew. Maxine Gill acetaminoph en (Tylenol) tablet 650 mg acetaminoph en (Tylenol) tablet 650 mg 10-02 04:49: 55 Yes 650mg Q6H 650 mg, Oral, Every 6 hours PRN, mild pain (1-3), Starting on Thu10/02/24 at 0449, Max acetaminop hen = 4000mg/day (4gm/day) Maxine Gill sulfur hexafluorid e lipid-type A microsphere s (Lumason) 60.7-25 MG Injectable suspension 2 mL sulfur hexafluorid e lipid-type A microsphere s (Lumason) 60.7-25 MG Injectable suspension 2 mL 10-02 00:57: 56 10-02 00:58 :00 No 2mL 2 mL, Intravenou s, Once in imaging, Starting on Thu10/02/24 at 0057, For 1 dose, Reconstitu te with 5 mL of PF NS only using provided Mini-Kev ; shake vigorously for 20 sec until a homogenous white milky suspension forms. Use immediatel y. May repeat once during procedure. Maxine Gill busPIRone (Buspar) 5 MG tablet busPIRone (Buspar) 5 MG tablet 10-01 17:00: 00 Yes 5mg Q.5D Take 5 mg by mouth in the morning and 5 mg in the evening. Maxine Gill lidocaine 4 % patch 1 patch lidocaine 4 % patch 1 patch 10-01 16:35: 00 Yes 1{patch } QD 1 patch, Apply externally , Administer over 12 Hours, Daily, First dose on 10/01/24 at 1635, Patch is applied to intact skin to cover painful area for up to 12 hours in a 24-hour period (12 hours on and 12 hours off). Apply to sternum Remove old patch before applicatio n of new patch. Maxine Fry Epic polyethylen e glycol (PEG) 3350 (Miralax) packet 17 g polyethylen e glycol (PEG) 3350 (Miralax) packet 17 g 10-01 16:31: 42 Yes 17g Q24H 17 g, Oral, Daily PRN, constipati on, Starting on 10/01/24 at 1631, Dissolve 17 g in 120 to 240 mL (4 to 8 ounces) of beverage. Maxine Gill gabapentin (Neurontin) 100 MG capsule gabapentin (Neurontin) 100 MG capsule 10-01 13:00: 00 Yes 100mg Q.[id number] 3D Take 100 mg by mouth in the morning and 100 mg at noon and 100 mg in the evening. Maxine Gill bumetanide (Bumex) injection 2 mg bumetanide (Bumex) injection 2 mg 10-01 13:00: 00 Yes 2mg Q.[id number] 3D 2 mg, Intravenou s, Administer over 2 Minutes, 3 times daily, First dose on Thu10/01/24 at 1300 Maxine Fry Epic isosorbide dinitrate (Isordil) tablet 5 mg isosorbide dinitrate (Isordil) tablet 5 mg 10-01 13:00: 00 Yes 5mg Q.[id number] [id number] 3D 5 mg, Oral, 3 times daily, First dose on 10/01/24 at 1300 Maxine Fry [facility] hydrALAZINE (Apresoline ) tablet 10 mg hydrALAZINE (Apresoline ) tablet 10 mg 10-01 11:25: 00 Yes 10mg Q8H 10 mg, Oral, Every 8 hours, First dose on 10/01/24 at 1125 Maxine Fry [facility] aspirin EC EC tablet 81 mg aspirin EC EC tablet 81 mg 10-01 11:25: 00 10-03 10:26 :00 No 81mg QD 81 mg, Oral, Daily, First dose on 10/01/24 at 1125, Do not crush, chew, or split. Maxine Gill insulin lispro (HumaLOG, Admelog) injection 1-4 Units insulin lispro (HumaLOG, Admelog) injection 1-4 Units 10-01 11:20: 18 Yes 1U Q.[id number] 3D 1-4 Units, Subcutaneo us, 3 times daily PRN, high blood sugar, with meals, Starting on 10/01/24 at 1120, For BG < 70, follow hypoglycem ia protocol and notify ordering provider. If patient can eat or drink, give oral carbohydra te as ordered per hypoglycem ia protocol. If patient NPO, give dextrose 50 % IV as ordered per hypoglycem ia protocol. If NPO and no IV access, give glucagon IM as ordered per hypoglycem ia protocol. Check BG every 15 minutes and repeat treatment if continued BG < 80., Correction Insulin Dosing: (DO NOT CHANGE DEFAULT SELECTION/ VALUES): Very Low, BG < 70 instructio ns: Follow Hypoglycem ia Orders, BG 70-149 instructio ns: No Dose Needed, BG 150-199: 1, BG 200-249: 2, BG 250-299: 3, BG >/= 300: 4, BG > 300 instructio ns: Contact Provider Maxine Fry [facility] glucagon injection 1 mg glucagon injection 1 mg 10-01 11:20: 15 Yes 1mg 1 mg, Intramuscu lar, As needed, For BG < 70 mg/dL if no IV access and patient is either Unconsciou s, unable to swallow or npo, Starting on 10/01/24 at 1120, For BG < 70 mg/dL if no IV access and patient is either Unconsciou s, unable to swallow or npo and notify MD. Maxine saba Ang Epic dextrose 50 % solution 25 g dextrose 50 % solution 25 g 10-01 11:20: 15 Yes 25g 25 g, Intravenou s, As needed, other, if Blood Glucose </= 50 mg/dL, Starting on 10/01/24 at 1120, If BG </=50 mg/dL, give 50 mL of D50W IV push STAT and notify MD. Maxine saba Ang Epic dextrose 50 % solution 12.5 g dextrose 50 % solution 12.5 g 10-01 11:20: 14 Yes 12.5g 12.5 g, Intravenou s, As needed, low blood sugar, if Blood Glucose 51- 69 mg/dL, Starting on 10/01/24 at 1120, For BG 51-69 mg/dL and patient UNCONSCIOU S OR UNABLE TO SWALLOW OR NPO: Give 25 mL of D50W IV push and notify MD. Maxine saba Ang Epic heparin 50 units/mL in sodium chloride 0.45 % heparin 50 units/mL in sodium chloride 0.45 % 10-01 11:20: 00 10-03 10:26 :00 No .1U/kg/ h 0.1-40 Units/kg/h r ?95.3 kg (0.1906-76 .24 mL/hr, rounded to 0.19-76.24 mL/hr), Intravenou s, Continuous , Starting on 10/01/24 at 1120, AFIB/Strok e PTT Weight Based Heparin Protocol Calculate heparin infusion dose using ACTUAL BODY WEIGHT. Start at 14 units/kg/h r (MAX INITIAL INFUSION = 1,200 units/hr = 24 mL/hr) - adjust per AFIB / Stroke Guidelines below Draw baseline PTT. Initiate drip. DO NOT wait for PTT results to start drip. Draw PTT 6 hours after drip initiation and 6 hours after every dose change. No heparin loading dose or bolus unless specifical ly ordered by provider. Do not draw PTT through line heparin is infused. --- Titration Table PTT < 30 sec: INCREASE dose by 4 units /kg/hr (Actual body Weight). Notify Provider STAT. Draw PTT 6 hours after increase in dose. PTT 30 - 45.9 sec: INCREASE dose by 3 units/kg/h r (Actual body Weight). Draw PTT 6 hours after increase in dose. PTT 46 - 59.9 sec: INCREASE dose by 2 units/kg/h r (Actual body Weight). Draw PTT 6 hours after increase in dose. PTT 60 - 79.9 sec: Therapeuti c, continue at same dose. Redraw PTT in 6 hours to confirm. Once 3 consecutiv e therapeuti c PTT, reduce draws to Q12H. PTT 80 - 90.9 sec: DECREASE dose by 1 unit/kg/hr (Actual Body Weight). Draw PTT 6 hours after decrease in dose. PTT 91 - 99.9 sec: HOLD infusion for 45 min. Notify provider STAT. DECREASE dose by 2 units/kg/h r (Actual Body Weight). Draw PTT 6 hours after decrease in dose. PTT 100 - 119.9 sec: HOLD infusion for 60 min. Notify provider STAT. DECREASE dose by 3 units/kg/h r (Actual Body Weight). Draw PTT 6 hours after decrease in dose. PTT 120 - 150.9 sec: HOLD infusion for 60 min. Notify provider STAT. DECREASE dose by 4 units/kg/h r (Actual Body Weight). Draw PTT 6 hours after decrease in dose. PTT >/= 151 sec: HOLD infusion and repeat PTT STAT through venipunctu re or separate line. Notify provider STAT. 1. If repeat PTT < 151 sec, then follow above protocol. 2. If repeat PTT >/= 151 sec, then continue to HOLD infusion & repeat PTT every 2 hours until PTT < 100 sec. Then DECREASE previous dose by 5 units/kg/h r (Actual Body Weight). Draw PTT 6 hours after decrease in dose --- Maxine Gill amiodarone (Pacerone) 200 MG tablet amiodarone (Pacerone) 200 MG tablet 10-01 11:15: 00 Yes 200mg QD Take 200 mg by mouth 1 time each day. Maxine Gill empaglifloz in (Jardiance) 10 MG empaglifloz in (Jardiance) 10 MG 10-01 11:15: 00 Yes 10mg QD Take 10 mg by mouth 1 time each day. Maxine Gill allopurinol (Zyloprim) tablet 300 mg allopurinol (Zyloprim) tablet 300 mg 10-01 11:15: 00 Yes 300mg QD 300 mg, Oral, Daily, First dose on Thu10/01/24 at 1115 Maxine Gill atorvastati n (Lipitor) tablet 80 mg atorvastati n (Lipitor) tablet 80 mg 10-01 11:15: 00 10-03 00:00 :00 Yes 80mg QD 80 mg, Oral, Daily, First dose on Thu10/01/24 at 1115 Maxine Fry Epic sodium chloride (NS) 0.9 % flush 10 mL sodium chloride (NS) 0.9 % flush 10 mL 10-01 11:00: 00 Yes 10mL Q.5D 10 mL, Intravenou s, Every 12 hours scheduled, First dose on Thu10/01/24 at 1100, Administer at least once every 12 hours Maxine Gill sodium chloride (NS) 0.9 % flush 10 mL sodium chloride (NS) 0.9 % flush 10 mL 10-01 10:55: 36 Yes 10mL 10 mL, Intravenou s, As needed, line care, Line Flush, Starting on Thu10/01/24 at 1055 Maxine Gill acetaminoph en (Tylenol) tablet 1,000 mg acetaminoph en (Tylenol) tablet 1,000 mg 10-01 10:10: 00 10-01 11:00 :00 No 1000mg 1,000 mg, Oral, Once, On Thu10/01/24 at 1010, For 1 dose, Max acetaminop hen = 4000mg/day (4gm/day) Maxine Gill nitroglycer in (Nitrostat) SL tablet 0.4 mg nitroglycer in (Nitrostat) SL tablet 0.4 mg 10-01 10:05: 00 10-01 10:05 :00 No .4mg 0.4 mg, Sublingual , Once, On 10/01/24 at 1005, For 1 dose, May administer up to 3 doses per episode. Maixne Fry Epic furosemide (Lasix) injection 40 mg furosemide (Lasix) injection 40 mg 10-01 04:15: 00 10-01 04:15 :00 No 40mg 40 mg, Intravenou s, Once, On 10/01/24 at 0415, For 1 dose Maxine Fry Epic acetaminoph en (Tylenol) tablet 1,000 mg acetaminoph en (Tylenol) tablet 1,000 mg 10-01 03:25: 00 10-01 03:59 :00 No 1000mg 1,000 mg, Oral, Once, On 10/01/24 at 0325, For 1 dose, Max acetaminop hen = 4000mg/day (4gm/day) Maxine Fry Epic aspirin chewable tablet 324 mg aspirin chewable tablet 324 mg 10-01 03:25: 00 10-01 03:59 :00 No 324mg 324 mg, Oral, Once, On 10/01/24 at 0325, For 1 dose Maxine Fry Epic Potassium chloride solution 40 mEq Potassium chloride solution 40 mEq 10-01 00:25: 00 10-01 00:51 :00 No 40meq 40 mEq, Oral, Once, On 10/01/24 at 0025, For 1 dose, Mix with 4 oz (120ml) of water prior to administra tion Maxine Fry Epic iohexol (OMNIPaque) 350 MG/ML injection 75 mL iohexol (OMNIPaque) 350 MG/ML injection 75 mL 09-30 23:46: 09 09-30 23:46 :00 No 75mL 75 mL, Intravenou s, Once in imaging, Starting on Thu09/30/24 at 2346, For 1 dose Maxine Fry Epic acetaminoph en (Tylenol) tablet 1,000 mg acetaminoph en (Tylenol) tablet 1,000 mg 09-30 23:45: 00 09-30 23:45 :00 No 1000mg 1,000 mg, Oral, Once, On Thu09/30/24 at 2345, For 1 dose, Max acetaminop hen = 4000mg/day (4gm/day) Maxine Gill allopurinoL (ZYLOPRIM) tablet 300 mg 09-20 15:00: 00 09-20 23:44 :21 No 300mg 300 mg, Oral, QAM, First dose on Thu09/20/24 at 0900, Until Discontinu ed, Routine [facility] amiodarone (PACERONE) tablet 200 mg 09-20 15:00: 00 09-20 23:44 :21 No 200mg 200 mg, Oral, DAILY, First dose on Thu09/20/24 at 0900, Until Discontinu ed, Routine [facility] pantoprazol e (PROTONIX) EC tablet 40 mg 09-20 15:00: 00 09-20 23:44 :21 No 40mg 40 mg, Oral, DAILY, First dose on Thu09/20/24 at 0900, Until Discontinu ed, Routine [facility] KCL (KLOR-CON M20) tablet 40 mEq 09-20 13:45: 00 09-20 14:10 :00 No 40meq 40 mEq, Oral, ONCE, 1 dose, On Thu09/20/24 at 0745, Routine [facility] atorvastati n (LIPITOR) tablet 80 mg 09-20 03:00: 00 09-20 23:44 :21 No 80mg 80 mg, Oral, QHS, First dose on Thu09/19/24 at 2100, Until Discontinu ed, Routine [facility] busPIRone (BUSPAR) tablet 5 mg 09-20 02:00: 00 09-20 23:44 :21 No 5mg 5 mg, Oral, BID, First dose on Thu09/19/24 at 2000, Until Discontinu ed, Routine [facility] apixaban (ELIQUIS) tablet 5 mg 09-20 02:00: 00 09-20 23:44 :21 No 1358 5mg 5 mg, Oral, BID, First dose on Thu09/19/24 at 2000, Until Discontinu ed, Routine, Indication s: Non-Valvul ar Atrial Fibrillati on [facility] hydralAZINE (APRESOLINE ) injection 10 mg 09-19 21:12: 42 09-20 23:44 :21 No 10mg 10 mg, Slow IV Push, Q4HPRN, Starting on Thu09/19/24 at 1512, Until Thu09/20/24 at 1744, Routine, DBP=>100; SBP=>180 [facility] spironolact one (ALDACTONE) tablet 25 mg 09-19 20:00: 00 09-20 23:44 :21 No 25mg 25 mg, Oral, DAILY, First dose on Thu09/19/24 at 1400, Until Discontinu ed, Routine [facility] lisinopriL (PRINIVIL,Z ESTRIL) tablet 5 mg 09-19 20:00: 00 09-20 23:44 :21 No 5mg 5 mg, Oral, DAILY, First dose on Thu09/19/24 at 1400, Until Discontinu ed, Routine [facility] metoprolol succinate XL (TOPROL XL) tablet 12.5 mg 09-19 20:00: 00 09-20 23:44 :21 No 12.5mg 12.5 mg, Oral, DAILY, First dose on Thu09/19/24 at 1400, Until Discontinu ed, Routine [facility] gabapentin (NEURONTIN) capsule 100 mg 09-19 20:00: 00 09-20 23:44 :21 No 100mg 100 mg, Oral, TID, First dose on Thu09/19/24 at 1400, Until Discontinu ed, Routine [facility] ondansetron (ZOFRAN (PF)) injection 4 mg 09-19 19:53: 54 09-20 23:44 :21 No 4mg [facility] morphine (2 mg/mL) injection 2 mg 09-19 19:53: 48 09-20 19:52 :48 No 2mg 2 mg, Slow IV Push, Q4HPRN, Starting on Thu09/19/24 at 1353, Until Thu09/20/24 at 1352, Routine, Pain (scale 7-10) [facility] HYDROcodone -acetaminop hen (NORCO 5) tablet 1 tablet 09-19 19:53: 47 09-20 23:44 :21 No 1{tbl} 1 tablet, Oral, Q6HPRN, Starting on Thu09/19/24 at 1353, Until Thu09/20/24 at 1744, Routine, Pain (scale 4-6) [facility] acetaminoph en (TYLENOL) tablet 650 mg 09-19 19:53: 38 09-20 23:44 :21 No 650mg [facility] morpHINE (4 mg/mL) injection 4 mg 09-19 19:15: 00 09-19 19:14 :00 No 4mg 4 mg, Slow IV Push, ONCE, 1 dose, On Thu09/19/24 at 1315, STAT [facility] nitroglycer in (NITROSTAT) sublingual tablet 0.4 mg 09-19 17:15: 00 09-19 17:10 :00 No .4mg 0.4 mg, Sublingual , ONCE, 1 dose, On Thu09/19/24 at 1115, MJ [facility] furosemide (LASIX) injection 40 mg 09-19 17:15: 00 09-19 17:10 :00 No 40mg 40 mg, IV Push, ONCE, 1 dose, On Thu09/19/24 at 1115, MJ [facility] butorphanol (STADOL) injection 1 mg 09-18 23:45: 00 09-18 23:05 :00 No 1mg 1 mg, IV Push, ONCE, 1 dose, On Thu09/18/24 at 1745, MJ [facility] acetaminoph en-codeine (TYLENOL-CO DEINE #3) 300-30 mg tablet 08-26 00:00: 00 Yes [id number] 1{tbl} Take 1 tablet by mouth 2 (two) times daily as needed for Pain (scale 4-6) or Pain (scale 7-10). Indication s: chronic pain, right knee pain [facility] atorvastati n (LIPITOR) tablet 80 mg 08-20 03:00: 00 08-19 23:01 :42 No 80mg [facility] sulfur hexafluorid e microsphr (LUMASON) injection 5 mL 08-19 16:30: 00 08-19 16:30 :00 No [id number] 5mL 5 mL, Intravenou s, ONCE, 1 dose, On Thu08/19/24 at 1030, Routine [facility] spironolact one (ALDACTONE) tablet 25 mg 08-19 15:00: 00 08-19 23:01 :42 No 25mg 25 mg, Oral, DAILY, First dose on Thu08/19/24 at 0900, Until Discontinu ed, Routine [facility] pantoprazol e (PROTONIX) EC tablet 40 mg 08-19 15:00: 00 08-19 23:01 :42 No 40mg 40 mg, Oral, DAILY, First dose on Thu08/19/24 at 0900, Until Discontinu ed [facility] metoprolol succinate XL (TOPROL XL) tablet 12.5 mg 08-19 15:00: 00 08-19 23:01 :42 No 12.5mg [facility] amiodarone (PACERONE) tablet 200 mg 08-19 15:00: 00 08-19 23:01 :42 No 200mg 200 mg, Oral, DAILY, First dose on Thu08/19/24 at 0900, Until Discontinu ed, Routine [facility] allopurinoL (ZYLOPRIM) tablet 300 mg 08-19 15:00: 00 08-19 23:01 :42 No 300mg 300 mg, Oral, QAM, First dose on Thu08/19/24 at 0900, Until Discontinu ed, Routine [facility] gabapentin (NEURONTIN) capsule 100 mg 08-19 14:00: 00 08-19 23:01 :42 No 100mg 100 mg, Oral, TID, First dose on Thu08/19/24 at 0800, Until Discontinu ed, Routine [facility] busPIRone (BUSPAR) tablet 5 mg 08-19 14:00: 00 08-19 23:01 :42 No 5mg 5 mg, Oral, BID, First dose on Thu08/19/24 at 0800, Until Discontinu ed, Routine [facility] apixaban (ELIQUIS) tablet 5 mg 08-19 14:00: 00 08-19 23:01 :42 No 1358 5mg 5 mg, Oral, BID, First dose on Thu08/19/24 at 0800, Until Discontinu ed, Routine, Indication s: Non-Valvul ar Atrial Fibrillati on [facility] methocarbam oL (ROBAXIN) tablet 500 mg 08-19 13:41: 27 08-19 23:01 :42 No 500mg [facility] ondansetron (ZOFRAN (PF)) injection 4 mg 08-19 09:06: 33 08-19 23:01 :42 No 4mg 4 mg, Slow IV Push, Q6HPRN, Starting on Thu08/19/24 at 0306, Until Thu08/19/24 at 1701, Administer over 2-5 Minutes, 2 mL [facility] morphine (2 mg/mL) injection 2 mg 08-19 09:06: 29 08-19 23:01 :42 No 2mg 2 mg, Slow IV Push, Q6HPRN, Starting on Thu08/19/24 at 0306, Until Thu08/19/24 at 1701, Routine, Pain (scale 7-10) [facility] HYDROcodone -acetaminop hen (NORCO 5) tablet 1 tablet 08-19 09:06: 24 08-19 23:01 :42 No 1{tbl} 1 tablet, Oral, Q6HPRN, Starting on Thu08/19/24 at 0306, Until Thu08/19/24 at 1701, Routine, Pain (scale 4-6) [facility] acetaminoph en (TYLENOL) tablet 650 mg 08-19 09:06: 23 08-19 23:01 :42 No 650mg 650 mg, Oral, Q6HPRN, Starting on Thu08/19/24 at 0306, Until Thu08/19/24 at 1701, Routine, Pain (scale 1-3) [facility] fentanyl PF (SUBLIMAZE (PF)) injection 50 mcg 08-19 03:45: 00 08-19 02:57 :00 No 50ug 50 mcg, Slow IV Push, ONCE, 1 dose, On Smiley 08/18/24 at 2145, MJ [facility] amiodarone 200 mg tablet 08-18 00:00: 00 09-29 00:00 :00 No [id number] 200mg Take 1 tablet by mouth in the morning. [facility] amiodarone 200 mg tablet 08-16 00:00: 00 08-18 00:00 :00 No [id number] 200mg Take 1 tablet by mouth in the morning. [facility] furosemide 40 mg tablet 08-15 00:00: 00 Yes [id number] 60mg Take 1.5 tablets by mouth in the morning. [facility] magnesium sulfate in water 4 gram/50 mL (8 %) IV Piggyback 4 g 08-14 17:30: 00 08-14 20:28 :00 No 4g 4 g, IV Piggyback, at 25 mL/hr Administer over 120 Minutes, ONCE, 1 dose, On 08/14/24 at 1130, Routine [facility] amiodarone (PACERONE) tablet 200 mg 08-14 16:45: 00 Yes 200mg 200 mg, Oral, DAILY, First dose on 08/14/24 at 1045, Until Discontinu ed, Routine [facility] apixaban (ELIQUIS) tablet 5 mg 08-13 17:45: 00 08-15 22:48 :54 No 5mg 5 mg, Oral, BID, First dose on 08/13/24 at 1145, Until Discontinu ed, Routine, Indication s: Non-Valvul ar Atrial Fibrillati on [facility] furosemide (LASIX) tablet 80 mg 08-13 17:45: 00 08-14 17:54 :00 No 80mg 80 mg, Oral, QAM+PM, First dose on 08/13/24 at 1145, Until Discontinu ed, Routine [facility] iron dextran (INFED) 1,000 mg in NaCl 0.9% (NS) 500 mL IV infusion 08-13 14:45: 00 08-13 22:00 :00 No 1000mg 1,000 mg, IV Infusion, ONCE, 1 dose, On 08/13/24 at 0845, Administer over 1 Hours, 500 mL [facility] iron dextran (INFED) 25 mg in NaCl 0.9% (NS) 100 mL IV piggyback 08-13 14:45: 00 08-13 18:14 :00 No 25mg 25 mg, IV Piggyback, ONCE, 1 dose, On 08/13/24 at 0845, Administer over 15 Minutes, 100 mL [facility] Sliding Scale Insulin - Lispro (HumaLOG) 08-13 14:00: 00 08-15 22:48 :54 No Subcutaneo us, TID MEALS+HS, First dose on 08/13/24 at 0800, Until Discontinu ed, Routine [facility] glucagon HCL injection 1 mg 08-13 13:43: 26 08-15 22:48 :54 No 1mg 1 mg, Intramuscu lar, PRN, Starting on 08/13/24 at 0743, Until 08/15/24 at 1648, MJ, Low blood sugar, Blood Glucose < or = 70 mg/dL and patient is NPO, unable to swallow or has mental changes. [facility] dextrose 50 % in water (D50W) injection 25 mL 08-13 13:43: 26 08-15 22:48 :54 No 25mL 25 mL, Slow IV Push, PRN, Starting on Thu08/13/24 at 0743, Until 08/15/24 at 1648, MJ, Blood Glucose < or = 70 mg/dL and patient is NPO, unable to swallow or has mental status changes. [facility] fentanyl PF (SUBLIMAZE (PF)) injection 25 mcg 08-13 05:44: 11 08-15 22:48 :54 No 25ug 25 mcg, Slow IV Push, Q3HPRN, 3 doses, Starting on Thu08/12/24 at 2344, Until 08/15/24 at 1648, Routine, Pain (scale 7-10), Pain that breaks through norco [facility] spironolact one (ALDACTONE) tablet 25 mg 08-13 03:45: 00 08-15 22:48 :54 No 25mg 25 mg, Oral, DAILY, First dose (after last reorder) on Thu08/12/24 at 2145, Until Discontinu ed, Routine [facility] metoprolol succinate XL (TOPROL XL) tablet 12.5 mg 08-13 03:45: 00 08-15 22:48 :54 No 12.5mg 12.5 mg, Oral, DAILY, First dose (after last reorder) on Thu08/12/24 at 2145, Until Discontinu ed, Routine [facility] lisinopriL (PRINIVIL,Z ESTRIL) tablet 5 mg 08-13 03:45: 00 08-15 22:48 :54 No 5mg 5 mg, Oral, DAILY, First dose (after last reorder) on Thu08/12/24 at 2145, Until Discontinu ed, Routine [facility] lidocaine 1% (XYLOCAINE) 10 mg/mL (1 %) injection 08-13 01:43: 29 08-13 02:55 :47 No ONCE INTRA PROCEDURE, Starting on Thu08/12/24 at 1943, Until Thu08/12/24 at 2055, Routine, CV Intraproce dure [facility] NaCl 0.9% (NS) IV infusion 250 mL 08-12 22:00: 00 08-15 22:48 :54 No [id number] 250mL at 20 mL/hr, IV Infusion, CONTINUOUS , Starting on Thu08/12/24 at 1600, Until Thu08/15/24 at 1648, Routine, KVO [facility] fentanyl PF (SUBLIMAZE (PF)) injection 08-12 21:30: 02 08-12 21:30 :02 No PRN, Starting on Thu08/12/24 at 1530, Until Thu08/12/24 at 1530, Routine, Intra-op [facility] midazolam (VERSED) injection 08-12 21:29: 55 08-12 21:29 :55 No PRN, Starting on Thu08/12/24 at 1529, Until Thu08/12/24 at 1529, Routine, Intra-op [facility] fentanyl PF (SUBLIMAZE (PF)) injection 08-12 21:22: 17 08-12 21:22 :17 No PRN, Starting on Thu08/12/24 at 1522, Until Thu08/12/24 at 1522, Routine, Intra-op [facility] midazolam (VERSED) injection 08-12 21:22: 12 08-12 21:22 :12 No PRN, Starting on Thu08/12/24 at 1522, Until Thu08/12/24 at 1522, Routine, Intra-op [facility] lidocaine 4% (XYLOCAINE) 4 % (40 mg/mL) topical solution 08-12 21:21: 21 08-12 21:21 :21 No PRN, Starting on Thu08/12/24 at 1521, Until Thu08/12/24 at 1521, Routine, Intra-op [facility] allopurinoL (ZYLOPRIM) tablet 300 mg 08-12 15:00: 00 08-15 22:48 :54 No 300mg 300 mg, Oral, QAM, First dose (after last modificati on) on Thu08/12/24 at 0900, Until Discontinu ed, Routine [facility] KCL (KLOR-CON M20) tablet 20 mEq 08-12 10:15: 00 08-12 10:33 :00 No 20meq 20 mEq, Oral, ONCE, 1 dose, On Thu08/12/24 at 0415, Routine [facility] perflutren protein-A microsphr (OPTISON) injection 3 mL 08-11 22:15: 00 08-11 22:15 :00 No [id number] 3mL 3 mL, IV Push, ONCE, 1 dose, On Thu08/11/24 at 1615, Routine [facility] sennosides (SENOKOT) tablet 8.6 mg 08-11 15:00: 00 08-15 22:48 :54 No 8.6mg 8.6 mg, Oral, DAILY, First dose on Thu08/11/24 at 0900, Until Discontinu ed, Routine [facility] pantoprazol e (PROTONIX) EC tablet 40 mg 08-11 15:00: 00 08-15 22:48 :54 No 40mg 40 mg, Oral, DAILY, First dose (after last modificati on) on Thu08/11/24 at 0900, Until Discontinu ed [facility] NaCl 0.9% (NS) bolus infusion 250 mL 08-11 05:30: 00 08-11 07:00 :00 No 250mL at 999 mL/hr, 250 mL, IV Piggyback, ONCE, 1 dose, On Thu08/10/24 at 2330, STAT [facility] cephALEXin (KEFLEX) capsule 500 mg 08-11 04:00: 00 08-13 01:59 :00 No 500mg 500 mg, Oral, QID, 8 doses, First dose on Thu08/10/24 at 2200, Last dose on Thu08/12/24 at 1600, MJ, Reason for Anti-Infec tive: Empiric Therapy for Suspected Infection, Empiric Therapy Site: Skin / Soft tissue, Duration of therapy: 72 hours [facility] atorvastati n (LIPITOR) tablet 80 mg 08-11 03:00: 00 08-15 22:48 :54 No 80mg 80 mg, Oral, QHS, First dose on Thu08/10/24 at 2100, Until Discontinu ed, Routine [facility] amiodarone (CORDARONE) 900 mg in NaCl 0.9% (NS) 500 mL infusion 08-10 15:15: 00 08-13 17:39 :03 No .5mg/mi n 0.5 mg/min (16.6667 mL/hr, rounded to 16.67 mL/hr), IV Infusion, CONTINUOUS , Starting on Thu08/10/24 at 0915, All amiodarone infusions must be administer ed using a 0.22 micron in line filter. Administer via central line if available. Amiodarone infusions with concentrat ions > 2 mg/mL must be administer ed via central line. [facility] aspirin chewable tablet 81 mg 08-10 15:00: 00 08-14 16:32 :14 No 81mg 81 mg, Oral, DAILY, First dose on Thu08/10/24 at 0900, Until Discontinu ed, Routine [facility] spironolact one (ALDACTONE) tablet 25 mg 08-10 15:00: 00 08-11 03:05 :45 No 25mg 25 mg, Oral, DAILY, First dose on Thu08/10/24 at 0900, Until Discontinu ed, Routine [facility] metoprolol succinate XL (TOPROL XL) tablet 12.5 mg 08-10 15:00: 00 08-11 03:51 :22 No 12.5mg 12.5 mg, Oral, DAILY, First dose on Thu08/10/24 at 0900, Until Discontinu ed, Routine [facility] allopurinoL (ZYLOPRIM) tablet 300 mg 08-10 15:00: 00 08-11 16:32 :25 No 300mg 300 mg, Oral, QAM, First dose on Thu08/10/24 at 0900, Until Discontinu ed, Routine [facility] lisinopriL (PRINIVIL,Z ESTRIL) tablet 5 mg 08-10 15:00: 00 08-10 21:32 :08 No 5mg 5 mg, Oral, DAILY, First dose on Thu08/10/24 at 0900, Until Discontinu ed, Routine [facility] gabapentin (NEURONTIN) capsule 100 mg 08-10 14:00: 00 08-15 22:48 :54 No 100mg 100 mg, Oral, TID, First dose on Thu08/10/24 at 0800, Until Discontinu ed, Routine [facility] busPIRone (BUSPAR) tablet 5 mg 08-10 14:00: 00 08-15 22:48 :54 No 5mg 5 mg, Oral, BID, First dose on Thu08/10/24 at 0800, Until Discontinu ed, Routine [facility] lidocaine-p rilocaine (EMLA) 2.5-2.5 % cream 08-10 14:00: 00 08-15 13:24 :29 No Topical, BID, First dose on Thu08/10/24 at 0800, Until Discontinu ed, Routine [facility] pantoprazol e (PROTONIX) EC tablet 40 mg 08-10 14:00: 00 08-11 03:16 :04 No 40mg 40 mg, Oral, BID, First dose on Thu08/10/24 at 0800, Until Discontinu ed [facility] proCHLORper azine (COMPAZINE) injection 5 mg 08-10 04:13: 12 08-15 22:48 :54 No 5mg 5 mg, Slow IV Push, Q6HPRN, Starting on Thu08/09/24 at 2213, Until Thu08/15/24 at 1648, Routine, N/V unresponsi ve to Ondansetro n [facility] methocarbam oL (ROBAXIN) tablet 500 mg 08-10 03:09: 51 08-15 22:48 :54 No 500mg 500 mg, Oral, TIDPRN, Starting on Thu08/09/24 at 2109, Until Thu08/15/24 at 1648, Routine, Muscle Spasms [facility] acetaminoph en (TYLENOL) tablet 650 mg 08-10 02:20: 57 08-15 22:48 :54 No 650mg 650 mg, Oral, Q8HPRN, Starting on Thu08/09/24 at 2020, Until Thu08/15/24 at 1648, Routine, Pain (scale 1-3) [facility] HYDROcodone -acetaminop hen (NORCO 5) tablet 1 tablet 08-10 02:20: 26 08-15 22:48 :54 No 1{tbl} 1 tablet, Oral, Q6HPRN, Starting on Thu08/09/24 at 2020, Until Thu08/15/24 at 1648, Routine, Pain (scale 7-10) [facility] heparin 25,000 Units/250 mL (Premixed Bag) in 0.45 % NS 08-10 02:00: 00 08-13 17:35 :47 No 0U/h 0-2,050 Units/hr (0-20.5 mL/hr), IV Infusion, CONTINUOUS , Starting on Thu08/09/24 at 2000, Initiate at 1,300 Units/hr (calculate d at 18 units/kg/h r, rounded to the closest 50 units) DO NOT Exceed the MAXIMUM 1,300 units/hr for initiation of heparin drip. CAUTION - If LMWH given in ER, AVOID bolus and start next dose/drip 12 hrs after ER dosage. Must program rate using programmab le infusion pump. Check with the ordering provider first prior to any administra tion should the patient be on existing/a dditional anticoagul ant therapy. Range, Dosing and Testing: FOR [place], [facility], AND [facility] ONLY - aPTT < 35: Bolus 5000 units, increase rate 300 units/hr - aPTT 35-44: Bolus 3000 units, increase rate 200 units/hr - aPTT 45-54: Increase rate 100 units/hr - aPTT 55-85: NO CHANGE - aPTT 86-95: Decrease rate 100 units/hr - aPTT 96-120: Hold 30 minutes, decrease rate 150 units/hr - aPTT > 120: Hold 60 minutes, decrease rate 200 units/hr Check aPTT 6 hours after initiation , then Q6H after every change, aPTT Q12H once therapeuti c levels are reached. FOR [facility] ONLY - aPTT < 40: Bolus 5000 units, increase rate 300 units/hr - aPTT 40-49: Bolus 3000 units, increase rate 200 units/hr - aPTT 50-59: Increase rate 100 units/hr - aPTT 60-85: NO CHANGE - aPTT 86-95: Decrease rate 100 units/hr - aPTT 96-120: Hold 30 minutes, decrease rate 150 units/hr - aPTT > 120: Hold 60 minutes, decrease rate 200 units/hr Check aPTT 6 hours after initiation , then Q6H after every change, aPTT Q12H once therapeuti c levels are reached. DO NOT ADJUST INITIAL BOLUS OR INITIAL INFUSION RATE. [facility] ondansetron (ZOFRAN (PF)) injection 4 mg 08-10 01:48: 12 08-15 22:48 :54 No 4mg 4 mg, Slow IV Push, Q6HPRN, Nausea and Vomiting (N/V), Starting on Thu08/09/24 at 1948, Please give medication over 2-5 minutes. [facility] ondansetron (ZOFRAN (PF)) injection 4 mg 08-09 21:30: 00 08-09 20:22 :00 No 4mg 4 mg, Slow IV Push, ONCE, 1 dose, On Thu08/09/24 at 1530, 2 mL [facility] fentanyl PF (SUBLIMAZE (PF)) injection 50 mcg 08-09 21:30: 00 08-09 20:22 :00 No 50ug 50 mcg, Slow IV Push, ONCE, 1 dose, On Thu08/09/24 at 1530, Routine [facility] amiodarone 150 mg/100 mL (NEXTERONE) RTU infusion 150 mg 08-09 20:15: 00 08-09 19:56 :00 No 150mg 150 mg, IV Piggyback, ONCE, 1 dose, On Thu08/09/24 at 1415, Administer over 10 Minutes, 100 mL [facility] cephALEXin (KEFLEX) capsule 500 mg 2023-08 02:00: 00 08-12 01:59 :00 Yes 500mg 500 mg, Oral, QID, 40 doses, First dose on Thu08/01/24 at 2000, Last dose on Thu08/11/24 at 1600, MJ, Reason for Anti-Infec tive: Documented Infection, Documented Infection Site: Skin / Soft Tissue, Duration of Therapy: 10 days [facility] ity [facility] spironolact one (ALDACTONE) tablet 25 mg 2023-08 15:00: 00 08-02 01:49 :06 No 25mg 25 mg, Oral, DAILY, First dose on Thu08/01/24 at 0900, Until Discontinu ed, Routine [facility] metoprolol succinate XL (TOPROL XL) tablet 12.5 mg 2023-08 15:00: 00 08-02 01:49 :06 No 12.5mg 12.5 mg, Oral, DAILY, First dose on Thu08/01/24 at 0900, Until Discontinu ed, Routine [facility] lisinopriL (PRINIVIL,Z ESTRIL) tablet 5 mg 2023-08 15:00: 00 08-02 01:49 :06 No 5mg 5 mg, Oral, DAILY, First dose on Thu08/01/24 at 0900, Until Discontinu ed, [facility]ine [facility] aspirin chewable tablet 81 mg 2023-08 15:00: 00 08-02 01:49 :06 No 81mg 81 mg, Oral, DAILY, First dose on Thu08/01/24 at 0900, Until Discontinu ed, Routine [facility] allopurinoL (ZYLOPRIM) tablet 300 mg 2023-08 15:00: 00 08-02 01:49 :06 No 300mg 300 mg, Oral, QAM, First dose on Thu08/01/24 at 0900, Until Discontinu ed, Routine [facility] magnesium sulfate in water 2 gram/50 mL (4 %) infusion 2 g 2023-08 12:45: 00 08-01 19:05 :00 No 2g 2 g, IV Piggyback, Administer over 60 Minutes, ONCE, 1 dose, On Thu08/01/24 at 0645, Routine [facility] HYDROcodone -acetaminop hen (NORCO 5) tablet 1 tablet 2023-08 03:18: 27 08-02 01:49 :06 No 1{tbl} 1 tablet, Oral, Q6HPRN, Starting on Thu07/31/24 at 2118, Until Thu08/01/24 at 1949, Routine, Pain (scale 4-6), Pain (scale 7-10) [facility] Sliding Scale Insulin - Lispro (HumaLOG) 2023-08 03:00: 00 08-02 01:49 :06 No Subcutaneo us, TID MEALS+HS, First dose on Thu07/31/24 at 2100, Until Discontinu ed, Routine [facility] atorvastati n (LIPITOR) tablet 80 mg 2023-08 03:00: 00 08-02 01:49 :06 No 80mg 80 mg, Oral, QHS, First dose on Thu07/31/24 at 2100, Until Discontinu ed, Routine [facility] magnesium sulfate in water 2 gram/50 mL (4 %) infusion 2 g 2023-08 02:30: 00 08-01 03:21 :00 No 2g 2 g, IV Piggyback, Administer over 60 Minutes, ONCE, 1 dose, On Thu07/31/24 at 2030, Routine [facility] pantoprazol e (PROTONIX) EC tablet 40 mg 2023-08 02:00: 00 08-02 01:49 :06 No 40mg 40 mg, Oral, BID, First dose on Thu07/31/24 at 2000, Until Discontinu ed [facility] gabapentin (NEURONTIN) capsule 100 mg 2023-08 02:00: 00 08-02 01:49 :06 No 100mg 100 mg, Oral, TID, First dose on Thu07/31/24 at 2000, Until Discontinu ed, Routine [facility] busPIRone (BUSPAR) tablet 5 mg 2023-08 02:00: 00 08-02 01:49 :06 No 5mg 5 mg, Oral, BID, First dose on Thu07/31/24 at 2000, Until Discontinu ed, Routine [facility] furosemide (LASIX) tablet 80 mg 2023-08 01:00: 00 08-02 01:49 :06 No 80mg 80 mg, Oral, QAM+PM, First dose (after last modificati on) on Thu07/31/24 at 1900, Until Discontinu ed, Routine [facility] glucagon HCL injection 1 mg 2023-08 00:52: 29 08-02 01:49 :06 No 1mg 1 mg, Intramuscu lar, PRN, Starting on Thu07/31/24 at 1852, Until Thu08/01/24 at 1949, MJ, Low blood sugar, Blood Glucose < or = 70 mg/dL and patient is NPO, unable to swallow or has mental changes. [facility] dextrose 50 % in water (D50W) injection 25 mL 2023-08 00:52: 29 08-02 01:49 :06 No 25mL 25 mL, Slow IV Push, PRN, Starting on 07/31/24 at 1852, Until 08/01/24 at 1949, MJ, Blood Glucose < or = 70 mg/dL and patient is NPO, unable to swallow or has mental status changes. [facility] methocarbam oL (ROBAXIN) tablet 500 mg 2023-08 00:09: 22 08-02 01:49 :06 No 500mg [facility] acetaminoph en (TYLENOL) tablet 650 mg 2023-08 00:02: 09 08-02 01:49 :06 No 650mg 650 mg, Oral, Q6HPRN, Starting on 07/31/24 at 1802, Until 08/01/24 at 1949, Routine, Pain (scale 1-3) [facility] cephALEXin 500 mg capsule 2023-08 00:00: 00 08-15 00:00 :00 No [id number] 500mg Take 1 capsule by mouth 4 (four) times daily for 10 days. [facility] lisinopriL 5 mg tablet 2023-08 00:00: 00 Yes [id number] 5mg Take 1 tablet by mouth in the morning. [facility] metoprolol succinate XL 25 mg 24 hr tablet 2023-08 00:00: 00 Yes [id number] 12.5mg Take 1/2 (one-half) tablet by mouth in the morning. [facility] furosemide (LASIX) tablet 80 mg 2023-08 15:00: 00 Yes 80mg 80 mg, Oral, QAM+PM, First dose on [place] 07/21/24 at 0900, Until Discontinu ed, Routine [facility] atorvastati n 80 mg tablet 2023-08 00:00: 00 Yes [id number] 80mg Take 1 tablet by mouth at bedtime. [facility] furosemide 80 mg tablet 2023-08 00:00: 00 08-15 00:00 :00 No [id number] 80mg Take 1 tablet by mouth every morning and evening. [facility] morpHINE injection 2 mg 2023-08 19:14: 24 07-21 23:16 :35 No 2mg 2 mg, Slow IV Push, Q6HPRN, Starting on Thu07/20/24 at 1314, Until [place] 07/21/24 at 1716, Routine, Pain (scale 7-10) [facility] apixaban (ELIQUIS) tablet 5 mg 2023-08 16:30: 00 07-21 23:16 :35 No 5mg 5 mg, Oral, BID, First dose on Thu07/20/24 at 1030, Until Discontinu ed, Routine, Indication s: Non-Valvul ar Atrial Fibrillati on [facility] NaCl 0.9% (NS) PEDIATRIC IV infusion 2023-08 05:30: 00 07-20 15:29 :00 No IV Infusion, at 50 mL/hr, CONTINUOUS , Starting on Thu07/19/24 at 2330, Until Thu07/20/24 at 0929, Routine [facility] heparin 25,000 Units/250 mL (Premixed Bag) in D5W 2023-08 05:00: 00 07-20 16:25 :04 No 0U/h 0-3,500 Units/hr (0-35 mL/hr), IV Infusion, CONTINUOUS , Starting on Thu07/19/24 at 2300, Initiate at 1,300 Units/hr (calculate d at 18 units/kg/h r, rounded to the closest 50 units) DO NOT Exceed the MAXIMUM 1,300 units/hr for initiation of heparin infusion. CAUTION - If LMWH given in ER, AVOID bolus and start next dose/drip 12 hrs after ER dosage. Must program rate using programmab le infusion pump. Check with the ordering provider first prior to any administra tion should the patient be on existing/a dditional anticoagul ant therapy. Range, Dosing and Testing: FOR [place], [facility], AND [facility] ONLY - aPTT < 35: Bolus 5000 units, increase rate 300 units/hr - aPTT 35-44: Bolus 3000 units, increase rate 200 units/hr - aPTT 45-54: Increase rate 100 units/hr - aPTT 55-85: NO CHANGE - aPTT 86-95: Decrease rate 100 units/hr - aPTT 96-120: Hold 30 minutes, decrease rate 150 units/hr - aPTT > 120: Hold 60 minutes, decrease rate 200 units/hr Check aPTT 6 hours after initiation , then Q6H after every change, aPTT Q12H once therapeuti c levels are reached. FOR [facility] ONLY - aPTT < 40: Bolus 5000 units, increase rate 300 units/hr - aPTT 40-49: Bolus 3000 units, increase rate 200 units/hr - aPTT 50-59: Increase rate 100 units/hr - aPTT 60-85: NO CHANGE - aPTT 86-95: Decrease rate 100 units/hr - aPTT 96-120: Hold 30 minutes, decrease rate 150 units/hr - aPTT > 120: Hold 60 minutes, decrease rate 200 units/hr Check aPTT 6 hours after initiation , then Q6H after every change, aPTT Q12H once therapeuti c levels are reached. DO NOT ADJUST INITIAL BOLUS OR INITIAL INFUSION RATE. [facility] heparin 1000 unit/mL injection Soln 5,000 Units 2023-08 05:00: 00 07-20 05:26 :00 No 5000U 5,000 Units, IV Push, ONCE, 1 dose, On Thu07/19/24 at 2300, Routine [facility] sodium zirconium cyclosilica te (LOKELMA) 10 gram packet 2023-08 00:00: 00 07-21 00:00 :00 No [id number] 10g Take 10 g by mouth QAM-0700. [facility] lidocaine 1% (PF) (XYLOCAINE) injection 2023-08 23:09: 05 07-20 00:00 :38 No ONCE INTRA PROCEDURE, Starting on Thu07/19/24 at 1709, Until Thu07/19/24 at 1800, Routine, CV Intraproce dure [facility] insulin lispro (human) (HumaLOG U-100) injection 2 Units 2023-08 19:52: 44 07-21 23:16 :35 No 2U 2 Units, Subcutaneo us, PRN - SEE INSTRUCTIO NS, 1 dose, Starting on Thu07/19/24 at 1352, Until Thu07/21/24 at 1716, Routine, For blood glucose > 300 mg/dL [facility] dextrose 10% (D10W) bolus infusion 125 mL 2023-08 19:52: 44 07-21 23:16 :35 No 125mL 125 mL, Intravenou s, PRN - SEE INSTRUCTIO NS, Administer over 60 Minutes, Other, Administer once if after insulin administra tion, blood glucose is 71-140 mg/dL and patient is unable to eat a 15 g carb snack, Starting on Thu07/19/24 at 1352, For 1 dose, If patient is able to eat/swallo w, give 15 gram carb snack - Sprite or cranberry juice. [facility] sodium zirconium cyclosilica te (LOKELMA) 10 gram packet 10 g 2023-08 18:00: 00 07-20 21:03 :27 No 10g 10 g, Oral, QAM-0700, 3 doses, First dose (after last modificati on) on Thu07/19/24 at 1200, Last dose on Thu07/21/24 at 0700, Routine [facility] insulin regular human (HUMULIN R) injection 10 Units 2023-08 18:00: 00 07-19 18:32 :00 No 10U 10 Units, IV Push, ONCE, 1 dose, On Thu07/19/24 at 1200, MJ, Indication for insulin: Hyperkalem ia- Please use the Insulin Protocol for Hyperkalem ia order set [facility] dextrose 50 % in water (D50W) injection 50 mL 2023-08 18:00: 00 07-19 18:31 :00 No 50mL 50 mL, Slow IV Push, ONCE, 1 dose, On Thu07/19/24 at 1200, MJ [facility] calcium gluconate 2 g in NaCl 100 mL (ISO-OSM) RTU IV infusion 2 g 2023-08 17:52: 37 07-20 17:51 :37 Yes 2g 2 g, IV Infusion, at 200 mL/hr Administer over 30 Minutes, PRN - SEE INSTRUCTIO NS, Starting on Thu07/19/24 at 1152, Until Thu07/20/24 at 1151, STAT, Potassium greater than or equal to 6.0 mEq/L with our without EKG changes [facility] glucagon HCL injection 1 mg 2023-08 17:52: 20 07-21 23:16 :35 No 1mg 1 mg, Intramuscu lar, PRN, Starting on Thu07/19/24 at 1152, Until [place] 07/21/24 at 1716, MJ, Low blood sugar, Blood Glucose < or = 70 mg/dL and patient is NPO, unable to swallow or has mental changes. [facility] dextrose 50 % in water (D50W) injection 25 mL 2023-08 17:52: 20 07-21 23:16 :35 No 25mL 25 mL, Slow IV Push, PRN, Starting on Thu07/19/24 at 1152, Until [place] 07/21/24 at 1716, MJ, Blood Glucose < or = 70 mg/dL and patient is NPO, unable to swallow or has mental status changes. [facility] furosemide (LASIX) injection 80 mg 2023-08 14:00: 00 07-20 04:26 :15 No 80mg 80 mg, Slow IV Push, TID, First dose on Thu07/19/24 at 0800, Until Discontinu ed, Routine [facility] ceFAZolin (ANCEF) 1,000 mg in water for injection, sterile 10 mL IV push 2023-08 00:33: 41 07-19 01:12 :09 No ONCE INTRA PROCEDURE, Starting on Thu07/18/24 at 1833, Until Thu07/18/24 at 1912, MJ, CV Intraproce dure [facility] lidocaine 1% (PF) (XYLOCAINE) injection 2023-08 00:27: 00 07-19 01:12 :09 No ONCE INTRA PROCEDURE, Starting on Thu07/18/24 at 1827, Until Thu07/18/24 at 191, Routine, CV Intraproce dure [facility] fentanyl PF (SUBLIMAZE (PF)) injection 2023-08 00:25: 15 07-19 01:12 :10 No ONCE INTRA PROCEDURE, Starting on Thu07/18/24 at 1825, Until Thu07/18/24 at 191, Routine, CV Intraproce dure [facility] midazolam (VERSED) injection 2023-08 00:25: 05 07-19 01:12 :10 No ONCE INTRA PROCEDURE, Starting on Thu07/18/24 at 1825, Until Thu07/18/24 at 191, Routine, CV Intraproce dure [facility] xenon - 133 (XENON) inhalation 8.3 millicurie 2023-08 18:00: 00 07-18 17:50 :00 No [id number] 8.3mCi 8.3 millicurie , Inhalation , ONCE, 1 dose, On Thu07/18/24 at 1200, Routine [facility] tc 99m-albumin (DRAXIMAGE MAA) injection 3.2 millicurie 2023-08 18:00: 00 07-18 18:00 :00 No [id number] 3.2mCi 3.2 millicurie , Intravenou s, ONCE, 1 dose, On Thu07/18/24 at 1200, Routine [facility] heparin 25,000 Units/250 mL (Premixed Bag) in D5W 2023-08 07:45: 00 07-19 03:15 :21 No 0U/h 0-3,200 Units/hr (0-32 mL/hr), IV Infusion, CONTINUOUS , Starting on Thu07/18/24 at 0145, Initiate infusion at 1,000 Units/hr (calculate d at 12 units/kg/h r, rounded to the closest 50 units) DO NOT Exceed the MAXIMUM 1,000 units/hr for initiation of heparin infusion. CAUTION - If LMWH given in ER, AVOID bolus and start next dose/drip 12 hrs after ER dosage. Must program rate using programmab le infusion pump. Check with the ordering provider first prior to any administra tion should the patient be on existing/a dditional anticoagul ant therapy. Range, Dosing and Testing: FOR [place], [facility], AND [facility] ONLY - aPTT < 35: Bolus 5000 units, increase rate 300 units/hr - aPTT 35-44: Bolus 3000 units, increase rate 200 units/hr - aPTT 45-54: Increase rate 100 units/hr - aPTT 55-85: NO CHANGE - aPTT 86-95: Decrease rate 100 units/hr - aPTT 96-120: Hold 30 minutes, decrease rate 150 units/hr - aPTT > 120: Hold 60 minutes, decrease rate 200 units/hr Check aPTT 6 hours after initiation , then Q6H after every change, aPTT Q12H once therapeuti c levels are reached. FOR [facility] ONLY - aPTT < 40: Bolus 5000 units, increase rate 300 units/hr - aPTT 40-49: Bolus 3000 units, increase rate 200 units/hr - aPTT 50-59: Increase rate 100 units/hr - aPTT 60-85: NO CHANGE - aPTT 86-95: Decrease rate 100 units/hr - aPTT 96-120: Hold 30 minutes, decrease rate 150 units/hr - aPTT > 120: Hold 60 minutes, decrease rate 200 units/hr Check aPTT 6 hours after initiation , then Q6H after every change, aPTT Q12H once therapeuti c levels are reached. DO NOT ADJUST INITIAL BOLUS OR INITIAL INFUSION RATE. [facility] HYDROcodone -acetaminop hen (NORCO) 10-325 mg tablet 1 tablet 2023-08 23:40: 28 07-21 19:45 :04 No 1{tbl} 1 tablet, Oral, Q6HPRN, Starting on Thu07/17/24 at 1740, Until [place] 07/21/24 at 1345, Routine, Pain (scale 4-6) [facility] morpHINE injection 4 mg 2023-08 23:40: 15 07-20 19:14 :54 No 4mg 4 mg, Slow IV Push, Q3HPRN, Starting on Thu07/17/24 at 1740, Until Thu07/20/24 at 1314, Routine, Pain (scale 7-10), Chest pain [facility] magnesium sulfate in water 4 gram/50 mL (8 %) IV Piggyback 4 g 2023-08 13:30: 00 07-17 17:18 :00 No 4g 4 g, IV Piggyback, at 25 mL/hr Administer over 120 Minutes, ONCE, 1 dose, On Thu07/17/24 at 0730, Routine [facility] KCL (KLOR-CON M20) tablet 40 mEq 2023-08 12:45: 00 07-17 16:44 :00 No 40meq 40 mEq, Oral, Q2H ES, 2 doses, First dose on Thu07/17/24 at 0645, Last dose on Thu07/17/24 at 0845, Routine [facility] atorvastati n (LIPITOR) tablet 80 mg 2023-08 03:00: 00 Yes 80mg 80 mg, Oral, QHS, First dose (after last modificati on) on 07/16/24 at 2100, Until Discontinu ed, Routine [facility] KCL (KLOR-CON M20) tablet 40 mEq 2023-08 15:15: 00 07-16 15:17 :00 No 40meq 40 mEq, Oral, ONCE, 1 dose, On 07/16/24 at 0915, Routine [facility] metoprolol succinate XL (TOPROL XL) tablet 12.5 mg 2023-08 15:00: 00 Yes 12.5mg 12.5 mg, Oral, DAILY, First dose on 07/16/24 at 0900, Until Discontinu ed, Routine [facility] KCL (KLOR-CON M20) tablet 40 mEq 2023-08 12:45: 00 07-16 12:08 :00 No 40meq 40 mEq, Oral, ONCE, 1 dose, On 07/16/24 at 0645, Routine [facility] heparin 25,000 Units/250 mL (Premixed Bag) in D5W 2023-08 20:30: 00 07-18 05:59 :00 No 0U/h 0-3,200 Units/hr (0-32 mL/hr), IV Infusion, CONTINUOUS , Starting on Thu07/15/24 at 1430, For 57 hours, Initiate infusion at 1,000 Units/hr (calculate d at 12 units/kg/h r, rounded to the closest 50 units) DO NOT Exceed the MAXIMUM 1,000 units/hr for initiation of heparin infusion. CAUTION - If LMWH given in ER, AVOID bolus and start next dose/drip 12 hrs after ER dosage. Must program rate using programmab le infusion pump. Check with the ordering provider first prior to any administra tion should the patient be on existing/a dditional anticoagul ant therapy. Range, Dosing and Testing: FOR [place], [facility], AND [facility] ONLY - aPTT < 35: Bolus 5000 units, increase rate 300 units/hr - aPTT 35-44: Bolus 3000 units, increase rate 200 units/hr - aPTT 45-54: Increase rate 100 units/hr - aPTT 55-85: NO CHANGE - aPTT 86-95: Decrease rate 100 units/hr - aPTT 96-120: Hold 30 minutes, decrease rate 150 units/hr - aPTT > 120: Hold 60 minutes, decrease rate 200 units/hr Check aPTT 6 hours after initiation , then Q6H after every change, aPTT Q12H once therapeuti c levels are reached. FOR [facility] ONLY - aPTT < 40: Bolus 5000 units, increase rate 300 units/hr - aPTT 40-49: Bolus 3000 units, increase rate 200 units/hr - aPTT 50-59: Increase rate 100 units/hr - aPTT 60-85: NO CHANGE - aPTT 86-95: Decrease rate 100 units/hr - aPTT 96-120: Hold 30 minutes, decrease rate 150 units/hr - aPTT > 120: Hold 60 minutes, decrease rate 200 units/hr Check aPTT 6 hours after initiation , then Q6H after every change, aPTT Q12H once therapeuti c levels are reached. DO NOT ADJUST INITIAL BOLUS OR INITIAL INFUSION RATE. [facility] HYDROcodone -acetaminop hen (NORCO 5) tablet 1 tablet 2023-08 19:45: 00 07-15 19:18 :00 No 1{tbl} 1 tablet, Oral, ONCE, 1 dose, On Thu07/15/24 at 1345, Routine [facility] Lidocaine (LIDOCARE) 4 % patch 1 Patch 2023-08 18:30: 00 07-16 07:22 :00 No 1{patch } 1 Patch, Topical, Administer over 12 Hours, ONCE, 1 dose, On Thu07/15/24 at 1230, Routine [facility] HYDROcodone -acetaminop hen (NORCO 5) tablet 1 tablet 2023-08 18:30: 00 07-15 17:45 :00 No 1{tbl} 1 tablet, Oral, ONCE, 1 dose, On Thu07/15/24 at 1230, Routine [facility] nitroglycer in (NITROSTAT) sublingual tablet 0.4 mg 2023-08 17:50: 08 07-21 23:16 :35 No .4mg 0.4 mg, Sublingual , Q5MIN PRN, Starting on Thu07/15/24 at 1150, Until [facility] 07/21/24 at 1716, Routine, Chest pain [facility] HYDROcodone -acetaminop hen (NORCO) 10-325 mg tablet 1 tablet 2023-08 17:37: 43 07-17 23:40 :41 No 1{tbl} 1 tablet, Oral, Q6HPRN, Starting on Thu07/15/24 at 1137, Until [place] 07/17/24 at 1740, Routine, Pain (scale 7-10) [facility] morpHINE injection 2 mg 2023-08 11:15: 00 07-15 10:27 :00 No 2mg 2 mg, Slow IV Push, ONCE, 1 dose, On Thu07/15/24 at 0515, Routine [facility] magnesium sulfate in water 2 gram/50 mL (4 %) infusion 2 g 2023-08 10:30: 00 07-15 11:28 :00 No 2g 2 g, IV Piggyback, Administer over 60 Minutes, ONCE, 1 dose, On Thu07/15/24 at 0430, Routine [facility] KCL (KLOR-CON M10) tablet 30 mEq 2023-08 10:30: 00 07-15 10:27 :00 No 30meq 30 mEq, Oral, ONCE, 1 dose, On Thu07/15/24 at 0430, Routine [facility] morpHINE injection 2 mg 2023-08 05:45: 07-15 05:05 :00 No 2mg 2 mg, Slow IV Push, ONCE, 1 dose, On [place] 07/14/24 at 2345, Routine [facility] ramelteon (ROZEREM) tablet 8 mg 2023-08 05:00: 00 07-21 23:16 :35 No 8mg 8 mg, Oral, QHS, First dose on [place] 07/14/24 at 2300, Until Discontinu ed, Routine [facility] morpHINE injection 2 mg 2023-08 01:15: 00 07-15 00:40 :00 No 2mg 2 mg, Slow IV Push, ONCE, 1 dose, On [place] 07/14/24 at 1915, Routine [facility] furosemide (LASIX) injection 80 mg 2023-08 20:00: 00 07-18 15:37 :38 No 80mg 80 mg, Slow IV Push, Q8H, First dose (after last modificati on) on [place] 07/14/24 at 1400, Until Discontinu ed, Routine [facility] KCL (KLOR-CON M20) tablet 40 mEq 2023-08 16:00: 00 07-14 15:32 :00 No 40meq 40 mEq, Oral, ONCE, 1 dose, On [place] 07/14/24 at 1000, Routine [facility] sulfur hexafluorid e microsphr (LUMASON) injection 5 mL 2023-08 15:45: 00 07-14 15:45 :00 No [id number] 5mL 5 mL, Intravenou s, ONCE, 1 dose, On [place] 07/14/24 at 0945, Routine [facility] spironolact one (ALDACTONE) tablet 25 mg 2023-08 15:00: 00 07-21 23:16 :35 No 25mg 25 mg, Oral, DAILY, First dose on [place] 07/14/24 at 0900, Until Discontinu ed, Routine [facility] pantoprazol e (PROTONIX) EC tablet 40 mg 2023-08 15:00: 00 07-21 23:16 :35 No 40mg 40 mg, Oral, DAILY, First dose on [place] 07/14/24 at 0900, Until Discontinu ed [facility] aspirin chewable tablet 81 mg 2023-08 15:00: 00 07-21 23:16 :35 No 81mg 81 mg, Oral, DAILY, First dose on [place] 07/14/24 at 0900, Until Discontinu ed, Routine [facility] allopurinoL (ZYLOPRIM) tablet 300 mg 2023-08 15:00: 00 07-21 23:16 :35 No 300mg 300 mg, Oral, QAM, First dose on Thu07/14/24 at 0900, Until Discontinu ed, Routine [facility] empaglifloz in (JARDIANCE) tablet 10 mg 2023-08 15:00: 00 07-17 16:08 :50 No 10mg 10 mg, Oral, DAILY, First dose on Thu07/14/24 at 0900, Until Discontinu ed, Routine, Please provide rationale if you wish to continue with this order; if patient has diabetes, consult endocrinol ogy. for HF, home med [facility] furosemide (LASIX) injection 40 mg 2023-08 12:00: 00 07-14 14:38 :43 No 40mg 40 mg, Slow IV Push, Q8H, First dose (after last modificati on) on Thu07/14/24 at 0600, Until Discontinu ed, Routine [facility] KCL (KLOR-CON M20) tablet 40 mEq 2023-08 09:15: 00 07-14 10:24 :00 No 40meq 40 mEq, Oral, ONCE, 1 dose, On Thu07/14/24 at 0315, Routine [facility] Potassium Bicarb-Citr ic Acid (EFFER-K) effervescen t tablet 40 mEq 2023-08 08:00: 00 07-14 08:20 :53 No 40meq 40 mEq, Oral, Q2H, 2 doses, First dose on Thu07/14/24 at 0200, Last dose on Thu07/14/24 at 0400, Routine [facility] morpHINE injection 2 mg 2023-08 07:00: 00 07-14 06:14 :00 No 2mg 2 mg, Slow IV Push, ONCE, 1 dose, On Thu07/14/24 at 0100, Routine [facility] Sliding Scale Insulin - Lispro (HumaLOG) 2023-08 03:00: 00 07-21 23:16 :35 No Subcutaneo us, TID MEALS+HS, First dose on Thu07/13/24 at 2100, Until Discontinu ed, Routine [facility] atorvastati n (LIPITOR) tablet 40 mg 2023-08 03:00: 00 07-16 16:39 :37 No 40mg 40 mg, Oral, QHS, First dose on Thu07/13/24 at 2100, Until Discontinu ed, Routine [facility] HYDROcodone -acetaminop hen (NORCO 5) tablet 1 tablet 2023-08 02:37: 26 07-15 17:38 :11 No 1{tbl} 1 tablet, Oral, Q6HPRN, Starting on Thu07/13/24 at 2037, Until Thu07/15/24 at 1138, Routine, Pain (scale 7-10) [facility] gabapentin (NEURONTIN) capsule 100 mg 2023-08 02:00: 00 07-21 23:16 :35 No 100mg 100 mg, Oral, TID, First dose on Thu07/13/24 at 2000, Until Discontinu ed, Routine [facility] busPIRone (BUSPAR) tablet 5 mg 2023-08 02:00: 00 07-21 23:16 :35 No 5mg 5 mg, Oral, BID, First dose on Thu07/13/24 at 2000, Until Discontinu ed, Routine [facility] glucagon HCL injection 1 mg 2023-08 01:15: 50 07-21 23:16 :35 No 1mg 1 mg, Intramuscu lar, PRN, Starting on Thu07/13/24 at 1915, Until Smiley 07/21/24 at 1716, MJ, Low blood sugar, Blood Glucose < or = 70 mg/dL and patient is NPO, unable to swallow or has mental changes. [facility] dextrose 50 % in water (D50W) injection 25 mL 2023-08 01:15: 50 07-21 23:16 :35 No 25mL 25 mL, Slow IV Push, PRN, Starting on Thu07/13/24 at 1915, Until Smiley 07/21/24 at 1716, MJ, Blood Glucose < or = 70 mg/dL and patient is NPO, unable to swallow or has mental status changes. [facility] lisinopriL (PRINIVIL,Z ESTRIL) tablet 5 mg 2023-08 00:45: 00 Yes 5mg 5 mg, Oral, DAILY, First dose on Thu07/13/24 at 1845, Until Discontinu ed, Routine [facility] potassium bicarb-citr ic acid (EFFER-K) effervescen t tablet 10 mEq 2023-08 00:45: 00 07-14 00:30 :00 No 10meq 10 mEq, Oral, ONCE, 1 dose, On Thu07/13/24 at 1845, Routine [facility] methocarbam oL (ROBAXIN) tablet 500 mg 2023-08 00:31: 25 07-21 23:16 :35 No 500mg 500 mg, Oral, TIDPRN, Starting on Thu07/13/24 at 1831, Until Smiley 07/21/24 at 1716, Routine, Muscle Spasms [facility] magnesium sulfate in water 4 gram/50 mL (8 %) IV Piggyback 4 g 2023-08 00:30: 00 07-14 02:59 :00 No 4g 4 g, IV Piggyback, at 25 mL/hr Administer over 120 Minutes, ONCE, 1 dose, On Thu07/13/24 at 1830, Routine [facility] furosemide (LASIX) injection 40 mg 2023-08 00:30: 00 07-14 00:50 :00 No 40mg 40 mg, Slow IV Push, ONCE, 1 dose, On Thu07/13/24 at 1830, [facility] Units/250 mL (Premixed Bag) in D5W 2023-08 00:00: 00 07-15 20:20 :22 No 0U/h 0-3,200 Units/hr (0-32 mL/hr), IV Infusion, CONTINUOUS , Starting on Thu07/13/24 at 1800, Initiate infusion at 1,000 Units/hr (calculate d at 12 units/kg/h r, rounded to the closest 50 units) DO NOT Exceed the MAXIMUM 1,000 units/hr for initiation of heparin infusion. CAUTION - If LMWH given in ER, AVOID bolus and start next dose/drip 12 hrs after ER dosage. Must program rate using programmab le infusion pump. Check with the ordering provider first prior to any administra tion should the patient be on existing/a dditional anticoagul ant therapy. Range, Dosing and Testing: FOR [facility], AND [facility] ONLY - aPTT < 35: Bolus 5000 units, increase rate 300 units/hr - aPTT 35-44: Bolus 3000 units, increase rate 200 units/hr - aPTT 45-54: Increase rate 100 units/hr - aPTT 55-85: NO CHANGE - aPTT 86-95: Decrease rate 100 units/hr - aPTT 96-120: Hold 30 minutes, decrease rate 150 units/hr - aPTT > 120: Hold 60 minutes, decrease rate 200 units/hr Check aPTT 6 hours after initiation , then Q6H after every change, aPTT Q12H once therapeuti c levels are reached. FOR [facility] ONLY - aPTT < 40: Bolus 5000 units, increase rate 300 units/hr - aPTT 40-49: Bolus 3000 units, increase rate 200 units/hr - aPTT 50-59: Increase rate 100 units/hr - aPTT 60-85: NO CHANGE - aPTT 86-95: Decrease rate 100 units/hr - aPTT 96-120: Hold 30 minutes, decrease rate 150 units/hr - aPTT > 120: Hold 60 minutes, decrease rate 200 units/hr Check aPTT 6 hours after initiation , then Q6H after every change, aPTT Q12H once therapeuti c levels are reached. DO NOT ADJUST INITIAL BOLUS OR INITIAL INFUSION RATE. [facility] HEPARIN SODIUM (PORCINE) 1,000 UNIT/ML BOLUS ACS ORDER SET 2023-08 00:00: 00 07-14 01:05 :00 No 4000U 4,000 Units, IV Push, ONCE, 1 dose, [facility] Thu07/13/24 at 1800, [facility] acetaminoph [facility] (TYLENOL) tablet 650 mg 2023-08 23:34: 58 07-21 23:16 :35 No 650mg 650 mg, Oral, Q6HPRN, Starting on Thu07/13/24 at 1734, Until Thu07/21/24 at 1716, Routine, Pain (scale 1-3) [facility] hydralAZINE (APRESOLINE ) injection 5 mg 2023-08 21:15: 00 07-13 21:20 :00 No 5mg 5 mg, Slow IV Push, ONCE, 1 dose, On Thu07/13/24 at 1515, [facility] HYDROcodone -acetaminop hen (NORCO 5) tablet 1 tablet 2023-08 21:15: 00 07-13 21:06 :00 No 1{tbl} 1 tablet, Oral, ONCE, 1 dose, On Thu07/13/24 at 1515, [facility] hydralAZINE (APRESOLINE ) injection 10 mg 2023-08 18:15: 00 07-13 18:22 :00 No 10mg 10 mg, Slow IV Push, ONCE, 1 dose, On Thu07/13/24 at 1215, MJ [facility] KCL (KLOR-CON M20) tablet 40 mEq 2023-08 16:00: 00 07-04 18:03 :00 No 40meq 40 mEq, Oral, ONCE, 1 dose, On Thu07/04/24 at 1000, Routine [facility] spironolact one (ALDACTONE) tablet 25 mg 2023-08 15:00: 00 07-04 18:30 :44 No 25mg 25 mg, Oral, DAILY, First dose on Thu07/04/24 at 0900, Until Discontinu ed, Routine [facility] pantoprazol e (PROTONIX) EC tablet 40 mg 2023-08 15:00: 00 07-04 18:30 :44 No 40mg 40 mg, Oral, DAILY, First dose on Thu07/04/24 at 0900, Until Discontinu ed, Routine [facility] aspirin chewable tablet 81 mg 2023-08 15:00: 00 07-04 18:30 :44 No 81mg 81 mg, Oral, DAILY, First dose on Thu07/04/24 at 0900, Until Discontinu ed, Routine [facility] furosemide (LASIX) tablet 40 mg 2023-08 14:00: 00 07-04 18:30 :44 No 40mg 40 mg, Oral, TID, First dose on Thu07/04/24 at 0800, Until Discontinu ed, Routine [facility] heparin (porcine) injection 5,000 Units 2023-08 12:00: 00 07-04 18:30 :44 No 5000U 5,000 Units, Subcutaneo us, Q8H, First dose on Thu07/04/24 at 0600, Until Discontinu ed, Routine [facility] atorvastati n (LIPITOR) tablet 40 mg 2023-08 03:00: 00 07-04 18:30 :44 No 40mg 40 mg, Oral, QHS, First dose on 07/03/24 at 2100, Until Discontinu ed, Routine [facility] Sliding Scale Insulin - Lispro (HumaLOG) 2023-08 03:00: 00 07-04 18:30 :[address] [facility] gabapentin (NEURONTIN) capsule 100 mg 2023-08 02:00: 00 07-04 18:30 :44 No 100mg 100 mg, Oral, TID, First dose on 07/03/24 at 2000, Until Discontinu ed, Routine [facility] busPIRone (BUSPAR) tablet 5 mg 2023-08 02:00: 00 07-04 18:30 :44 No 5mg 5 mg, Oral, BID, First dose on 07/03/24 at 2000, Until Discontinu ed, Routine [facility] furosemide (LASIX) injection 40 mg 2023-08 01:15: 00 07-04 01:44 :00 No 40mg 40 mg, Slow IV Push, ONCE, 1 dose, On 07/03/24 at 1915, Routine [facility] carvediloL (COREG) tablet 25 mg 2023-08 00:30: 00 07-04 18:30 :44 No 25mg 25 mg, Oral, BID MEALS, First dose on 07/03/24 at 1830, Until Discontinu ed, Routine [facility] ondansetron (ZOFRAN (PF)) injection 4 mg 2023-08 00:30: 00 07-03 23:35 :00 No 4mg 4 mg, Slow IV Push, ONCE, 1 dose, On 07/03/24 at 1830, [address] [facility] fentanyl PF (SUBLIMAZE (PF)) injection 50 mcg 2023-08 00:30: 00 07-03 23:34 :00 No 50ug 50 mcg, Slow IV Push, ONCE, 1 dose, On 07/03/24 at 1830, Routine [facility] glucagon HCL injection 1 mg 2023-08 00:27: 16 07-04 18:30 :44 No 1mg [facility] dextrose 50 % in water (D50W) injection 25 mL 2023-08 00:27: 16 07-04 18:30 :44 No 25mL [facility] ondansetron (ZOFRAN (PF)) injection 4 mg 2023-08 00:27: 11 07-04 18:30 :44 No 4mg [facility] HYDROcodone -acetaminop hen (NORCO 5) tablet 1 tablet 2023-08 00:27: 08 07-04 18:30 :44 No 1{tbl} [facility] morphine (2 mg/mL) injection 2 mg 2023-08 00:27: 03 07-04 18:30 :44 No 2mg [facility] acetaminoph en (TYLENOL) tablet 650 mg 2023-08 00:26: 56 07-04 18:30 :44 No 650mg [facility] heparin 25,000 Units/250 mL (Premixed Bag) in 0.45 % NS 2023-08 23:15: 00 07-04 05:27 :08 No 1000U/h 1,000 Units/hr (10 mL/hr), IV Infusion, CONTINUOUS , Starting on 07/03/24 at 1715, Initiate infusion at 1,000 Units/hr (calculate d at 12 units/kg/h r, rounded to the closest 50 units) DO NOT Exceed the MAXIMUM 1,000 units/hr for initiation of heparin infusion. CAUTION - If LMWH given in ER, AVOID bolus and start next dose/drip 12 hrs after ER dosage. Must program rate using programmab le infusion pump. Check with the ordering provider first prior to any administra tion should the patient be on existing/a dditional anticoagul ant therapy. Range, Dosing and Testing: FOR [place], [facility], AND [facility] ONLY - aPTT < 35: Bolus 5000 units, increase rate 300 units/hr - aPTT 35-44: Bolus 3000 units, increase rate 200 units/hr - aPTT 45-54: Increase rate 100 units/hr - aPTT 55-85: NO CHANGE - aPTT 86-95: Decrease rate 100 units/hr - aPTT 96-120: Hold 30 minutes, decrease rate 150 units/hr - aPTT > 120: Hold 60 minutes, decrease rate 200 units/hr Check aPTT 6 hours after initiation , then Q6H after every change, aPTT Q12H once therapeuti c levels are reached. FOR [facility] ONLY - aPTT < 40: Bolus 5000 units, increase rate 300 units/hr - aPTT 40-49: Bolus 3000 units, increase rate 200 units/hr - aPTT 50-59: Increase rate 100 units/hr - aPTT 60-85: NO CHANGE - aPTT 86-95: Decrease rate 100 units/hr - aPTT 96-120: Hold 30 minutes, decrease rate 150 units/hr - aPTT > 120: Hold 60 minutes, decrease rate 200 units/hr Check aPTT 6 hours after initiation , then Q6H after every change, aPTT Q12H once therapeuti c levels are reached. DO NOT ADJUST INITIAL BOLUS OR INITIAL INFUSION RATE. [facility] labetaloL (NORMODYNE) 5 mg/mL injection 10 mg 2023-08 23:15: 00 07-03 23:38 :00 No 10mg 10 mg, Slow IV Push, ONCE, 1 dose, On 07/03/24 at 1715, MJ [facility] HEPARIN SODIUM (PORCINE) 1,000 UNIT/ML BOLUS ACS ORDER SET 2023-08 23:15: 00 07-03 23:39 :00 No 4000U 4,000 Units, IV Push, ONCE, 1 dose, On Thu07/03/24 at 1715, MJ [facility] heparin (1,000 unit/mL, 10 mL vial) for Rebolusing 2023-08 23:06: 54 07-04 18:30 :44 No 3000U FOR REBOLUSING , Starting on Thu07/03/24 at 1706, Until Thu07/04/24 at 1230, Routine, Dosing based on aPTT testing parameters (refer to continuous heparin drip order). [facility] apixaban 5 mg tablet 2023-08 00:00: 00 Yes [id number] 5mg Take 1 tablet by mouth in the morning and 1 tablet in the evening. Indication s: atrial fibrillati on [facility] aspirin 81 mg chewable tablet 2023-08 00:00: 00 08-15 00:00 :00 No [id number] 9100 81mg Take 1 tablet by mouth in the morning. [facility] HYDROcodone -acetaminop hen (NORCO 5) tablet 1 tablet 2023-08 10:50: 39 05-17 18:39 :03 No 1{tbl} 1 tablet, Oral, Q6HPRN, Starting on Thu05/17/24 at 0550, Until Thu05/17/24 at 1339, Routine, Pain (scale 4-6) [facility] empaglifloz in (JARDIANCE) 10 mg tablet 2023-08 00:00: 00 Yes [id number] 10mg Take 1 tablet by mouth in the morning. [facility] omeprazole 40 mg capsule 2023-08 00:00: 00 Yes [id number] 40mg Take 1 capsule by mouth in the morning. [facility] busPIRone 5 mg tablet 2023-08 00:00: 00 Yes [id number] 5mg Take 1 tablet by mouth in the morning and 1 tablet in the evening. [facility] gabapentin 100 mg capsule 2023-08 00:00: 00 Yes [id number] 100mg Take 1 capsule by mouth in the morning and 1 capsule at noon and 1 capsule in the evening. [facility] spironolact one (ALDACTONE) 25 mg tablet 2023-08 00:00: 00 Yes [id number] 9100 25mg Take 1 tablet by mouth in the morning. [facility] atorvastati n 40 mg tablet 2023-08 00:00: 00 07-21 00:00 :00 No [id number] 40mg Take 1 tablet by mouth at bedtime. [facility] carvediloL 25 mg tablet 2023-08 00:00: 00 07-21 00:00 :00 No [id number] 9100 25mg Take 1 tablet by mouth in the morning and 1 tablet in the evening. Take with meals. [facility] furosemide 40 mg tablet 2023-08 00:00: 00 07-21 00:00 :00 No [id number] 9100 40mg Take 1 tablet by mouth in the morning and 1 tablet at noon and 1 tablet in the evening. [facility] lisinopriL 2.5 mg tablet 2023-08 00:00: 00 06-17 05:59 :00 No [id number] 9104 2.5mg Take 1 tablet by mouth in the morning for 30 days. [facility] apixaban 5 mg tablet 2023-08 00:00: 00 06-01 00:00 :00 No 1358 5mg Take 1 tablet by mouth in the morning and 1 tablet in the evening. Indication s: atrial fibrillati on [facility] aspirin 81 mg chewable tablet 2023-08 00:00: 00 06-01 00:00 :00 No [id number] 9100 81mg Take 1 tablet by mouth in the morning. [facility] KCL (KLOR-CON M20) tablet 40 mEq 2023-08 13:00: 00 05-17 13:18 :00 No 40meq 40 mEq, Oral, BID, 3 doses, First dose on Thu05/16/24 at 0800, Last dose on Thu05/17/24 at 0800, Routine [facility] spironolact one (ALDACTONE) tablet 25 mg 2023-08 0-14 13:00: 00 05-17 23:14 :29 No 25mg 25 mg, Oral, BID, First dose (after last modificati on) on Thu05/16/24 at 0800, Until Discontinu ed, Routine [facility] Sliding Scale Insulin - Lispro (HumaLOG) 2023-08 0 02:00: 00 05-17 23:14 :29 No Subcutaneo us, TID MEALS+HS, First dose on Thu05/15/24 at 2100, Until Discontinu ed, Routine [facility] glucagon HCL injection 1 mg 2023-08 0- 01:06: 44 05-17 23:14 :29 No 1mg 1 mg, Intramuscu lar, PRN, Starting on Thu05/15/24 at 2006, Until Thu05/17/24 at 1814, MJ, Low blood sugar, Blood Glucose < or = 70 mg/dL and patient is NPO, unable to swallow or has mental changes. [facility] dextrose 50 % in water (D50W) injection 25 mL 2023-08 01:06: 44 05-17 23:14 :29 No 25mL 25 mL, Slow IV Push, PRN, Starting on Thu05/15/24 at 2006, Until Thu05/17/24 at 1814, MJ, Blood Glucose < or = 70 mg/dL and patient is NPO, unable to swallow or has mental status changes. [facility] glipiZIDE (GLUCOTROL) tablet 5 mg 2023-08 0-13 21:30: 00 05-17 00:17 :12 No 5mg 5 mg, Oral, BIDAC, First dose on Thu05/15/24 at 1630, Until Discontinu ed, Routine [facility] rosuvastati n (CRESTOR) tablet 10 mg 2023-08 0-13 14:00: 00 05-17 23:14 :29 No 10mg 10 mg, Oral, DAILY, First dose on Thu05/15/24 at 0900, Until Discontinu ed, Routine [facility] allopurinoL (ZYLOPRIM) tablet 300 mg 2023-08 14:00: 00 05-17 23:14 :29 No 300mg 300 mg, Oral, DAILY, First dose on 05/15/24 at 0900, Until Discontinu ed, Routine [facility] lisinopriL (PRINIVIL,Z ESTRIL) tablet 2.5 mg 2023-08 14:00: 00 05-17 23:14 :28 No 2.5mg 2.5 mg, Oral, DAILY, First dose on 05/15/24 at 0900, Until Discontinu ed, Routine [facility] aspirin chewable tablet 81 mg 2023-08 14:00: 00 05-17 23:14 :28 No 81mg 81 mg, Oral, DAILY, First dose on 05/15/24 at 0900, Until Discontinu ed, Routine [facility] pantoprazol e (PROTONIX) EC tablet 40 mg 2023-08 14:00: 00 05-17 23:14 :28 No 40mg 40 mg, Oral, DAILY, First dose on 05/15/24 at 0900, Until Discontinu ed, Routine [facility] spironolact one (ALDACTONE) tablet 25 mg 2023-08 14:00: 00 05-16 11:43 :34 No 25mg 25 mg, Oral, DAILY, First dose on 05/15/24 at 0900, Until Discontinu ed, Routine [facility] sulfur hexafluorid e microsphr (LUMASON) injection 5 mL 2023-08 14:00: 00 05-15 13:59 :00 No [id number] 5mL 5 mL, Intravenou s, ONCE, 1 dose, On 05/15/24 at 0900, Routine [facility] lidocaine-p rilocaine (EMLA) 2.5-2.5 % cream 2023-08 13:00: 00 05-17 23:14 :[address] [facility] gabapentin (NEURONTIN) capsule 100 mg 2023-08 13:00: 00 05-17 23:14 :28 No 100mg 100 mg, Oral, TID, First dose on 05/15/24 at 0800, Until Discontinu ed, Routine [facility] furosemide (LASIX) tablet 40 mg 2023-08 13:00: 00 05-17 23:14 :28 No 40mg 40 mg, Oral, TID, First dose on Thu05/15/24 at 0800, Until Discontinu ed, [facility]ine [facility] carved[facility]L (COREG) tablet 25 mg 2023-08 13:00: 00 05-17 23:14 :28 No 25mg 25 mg, Oral, BID MEALS, First dose on 05/15/24 at 0800, Until Discontinu ed, Routine [facility] busPIRone (BUSPAR) tablet 5 mg 2023-08 13:00: 00 05-17 23:14 :28 No 5mg 5 mg, Oral, BID, First dose on 05/15/24 at 0800, Until Discontinu ed, Routine [facility] apixaban (ELIQUIS) tablet 5 mg 2023-08 13:00: 00 05-17 23:14 :28 No 1358 5mg 5 mg, Oral, BID, First dose on Thu05/15/24 at 0800, Until Discontinu ed, Routine, Indication s: Non-Valvul ar Atrial Fibrillati on [facility] methocarbam oL (ROBAXIN) tablet 500 mg 2023-08 12:32: 57 05-17 23:14 :29 No 500mg [facility] ammonium lactate (LAC-HYDRIN ) 12 % cream 2023-08 12:32: 22 05-17 23:14 :28 No [facility] niCARdipine (CARDENE I.V.) 40 mg in NaCL 200 mL (RTU) infusion 2023-08 08:05: 32 05-16 01:08 :06 No 2.5mg/h 2.5-15 mg/hr (12.5-75 mL/hr), IV Infusion, TITRATE, SBP Goal < 180 mmHg, DBP Goal < 110 mmHg, Starting on Thu05/15/24 at 0305, Initiate infusion at 2.5 mg/hr. Titrate by 2.5 mg/hr every 5 minutes to 15 minutes as needed to achieve and maintain goal blood pressure. Maximum dose = 15 mg/hr. If goal not maintained at maximum allowed dose, contact prescriber . [facility] metoprolol (LOPRESSOR) injection 5 mg 2023-08 08:00: 00 05-15 07:45 :00 No 5mg 5 mg, Slow IV Push, ONCE NOW, 1 dose, On Thu05/15/24 at 0300, Routine [facility] ondansetron (ZOFRAN (PF)) injection 4 mg 2023-08 07:35: 58 05-17 23:14 :28 No 4mg 4 mg, Slow IV Push, Q6HPRN, Starting on Thu05/15/24 at 0235, Until Thu05/17/24 at 1814, Routine, Nausea and Vomiting (N/V) [facility] HYDROcodone -acetaminop hen (NORCO 5) tablet 1 tablet 2023-08 07:35: 18 05-17 07:34 :18 No 1{tbl} 1 tablet, Oral, Q6HPRN, Starting on Thu05/15/24 at 0235, Until Thu05/17/24 at 0234, Routine, Pain (scale 4-6) [facility] acetaminoph en (TYLENOL) tablet 650 mg 2023-08 07:35: 15 05-17 23:14 :28 No 650mg 650 mg, Oral, Q6HPRN, Starting on Thu05/15/24 at 0235, Until Thu05/17/24 at 1814, Routine, Pain (scale 1-3) [facility] furosemide (LASIX) injection 40 mg 2023-08 06:45: 00 05-15 06:00 :00 No 40mg 40 mg, IV Push, ONCE, 1 dose, On Thu05/15/24 at 0145, MJ [facility] KETOCONAZOL E 2 % cream 2023-08 0-04 00:00: 00 07-13 00:00 :00 No [id number] APPLY TO AREA(S) DAILY. APPLY TO FEET/TOES [facility] lidocaine-p rilocaine 2.5-2.5 % cream 04-20 00:00: 00 08-15 00:00 :00 No [id number] Apply to area(s) 2 (two) times daily. [facility] ammonium lactate 12 % cream 04-20 00:00: 00 07-13 00:00 :00 No [id number] Apply to area(s) as needed for Itching. [facility] ketoconazol e 2 % cream 04-20 00:00: 00 05-06 00:00 :00 No [id number] Apply to area(s) daily. Apply to feet/toes [facility] methocarbam oL 500 mg tablet 04-18 00:00: 00 Yes [id number] 500mg Take 1 tablet by mouth 3 (three) times daily as needed for Pain (scale 7-10) (Knee pain). [facility] lidocaine 5 % ointment 04-18 00:00: 00 04-20 00:00 :00 No [id number] Apply to area(s) 2 (two) times daily. [facility] Blood-Gluco se Meter Kit 04-13 00:00: 00 Yes [id number] Check sugars 2 times a day. Dx. Code E11.9 Brand per Insurance [facility] blood sugar diagnostic strip 04-13 00:00: 00 Yes [id number] Check blood sugar 2 times a day. E11.9. Brand per insurance. [facility] Lancets Misc 04-13 00:00: 00 Yes [id number] Check sugars 1 times a day. Dx Code E11.9. Brand per insurance. [facility] allopurinoL 300 mg tablet 04-13 00:00: 00 Yes [id number] 300mg Take 1 tablet by mouth every morning. [facility] apixaban 5 mg tablet 04-13 00:00: 00 05-17 00:00 :00 No 1358 5mg Take 1 tablet by mouth in the morning and 1 tablet in the evening. Indication s: atrial fibrillati on [facility] furosemide 40 mg tablet 04-13 00:00: 00 05-17 00:00 :00 No [id number] 9100 40mg Take 1 tablet by mouth in the morning and 1 tablet at noon and 1 tablet in the evening. [facility] aspirin 81 mg chewable tablet 04-13 00:00: 00 05-17 00:00 :00 No [id number] 9100 81mg Take 1 tablet by mouth in the morning. [facility] spironolact one (ALDACTONE) tablet 25 mg 04-05 14:00: 00 Yes 25mg 25 mg, Oral, DAILY, First dose on Thu04/05/24 at 0900, Until Discontinu ed, Routine [facility] lisinopriL (PRINIVIL,Z ESTRIL) tablet 2.5 mg 04-05 14:00: 00 Yes 2.5mg 2.5 mg, Oral, DAILY, First dose on Thu04/05/24 at 0900, Until Discontinu ed, Routine [facility] aspirin chewable tablet 81 mg 04-05 14:00: 00 Yes 81mg 81 mg, Oral, DAILY, First dose on Thu04/05/24 at 0900, Until Discontinu ed, Routine [facility] allopurinoL (ZYLOPRIM) tablet 300 mg 04-05 14:00: 00 Yes 300mg 300 mg, Oral, QAM, First dose on Thu04/05/24 at 0900, Until Discontinu ed, Routine [facility] magnesium sulfate in water 4 gram/50 mL (8 %) IV Piggyback 4 g 04-05 13:00: 00 04-05 15:58 :00 No 4g 4 g, IV Piggyback, at 25 mL/hr Administer over 120 Minutes, ONCE, 1 dose, On Thu04/05/24 at 0800, Routine [facility] atorvastati n (LIPITOR) tablet 40 mg 04-05 02:00: 00 Yes 40mg 40 mg, Oral, QHS, First dose on Thu04/04/24 at 2100, Until Discontinu ed, Routine [facility] busPIRone (BUSPAR) tablet 5 mg 04-05 01:00: 00 Yes 5mg 5 mg, Oral, BID, First dose on Thu04/04/24 at 2000, Until Discontinu ed, Routine [facility] apixaban (ELIQUIS) tablet 5 mg 04-05 01:00: 00 Yes 1358 5mg 5 mg, Oral, BID, First dose on Thu04/04/24 at 2000, Until Discontinu ed, Routine, Indication s: Non-Valvul ar Atrial Fibrillati on [facility] Sliding Scale Insulin - Lispro (HumaLOG) 04-04 22:00: 00 Yes [facility] carvediloL (COREG) tablet 25 mg 04-04 22:00: 00 Yes 25mg 25 mg, Oral, BID MEALS, First dose on Thu04/04/24 at 1700, Until Discontinu ed, Routine [facility] glipiZIDE (GLUCOTROL) tablet 5 mg 04-04 21:30: 00 Yes 5mg 5 mg, Oral, BIDAC, First dose on Thu04/04/24 at 1630, Until Discontinu ed, Routine [facility] aspirin tablet 325 mg 04-04 19:30: 00 04-04 19:59 :00 No 325mg 325 mg, Oral, ONCE, 1 dose, On Thu04/04/24 at 1430, Routine [facility] gabapentin (NEURONTIN) capsule 100 mg 04-04 19:00: 00 Yes 100mg 100 mg, Oral, TID, First dose on Thu04/04/24 at 1400, Until Discontinu ed, Routine [facility] pantoprazol e (PROTONIX) EC tablet 40 mg 04-04 18:45: 00 Yes 40mg 40 mg, Oral, DAILY, First dose on Thu04/04/24 at 1345, Until Discontinu ed, Routine [facility] furosemide (LASIX) injection 40 mg 04-04 18:45: 00 Yes 40mg 40 mg, Slow IV Push, Q12H, First dose on Thu04/04/24 at 1345, Until Discontinu ed, Routine [facility] cloNIDine (CATAPRES) tablet 0.2 mg 04-04 18:45: 00 04-04 18:37 :00 No .2mg 0.2 mg, Oral, ONCE, 1 dose, On Thu04/04/24 at 1345, STAT [facility] dextrose 50 % in water (D50W) injection 25 mL 04-04 18:40: 13 Yes 25mL [facility] ondansetron (ZOFRAN (PF)) injection 4 mg 04-04 18:40: 07 Yes 4mg [facility] HYDROcodone -acetaminop hen (NORCO) 10-325 mg tablet 1 tablet 04-04 18:40: 05 Yes 1{tbl} 1 tablet, Oral, Q6HPRN, Starting on Thu04/04/24 at 1340, Until Discontinu ed, Routine, Pain (scale 7-10) [facility] HYDROcodone -acetaminop hen (NORCO 5) tablet 1 tablet 04-04 18:39: 05 04-06 18:38 :05 No 1{tbl} [facility] acetaminoph en (TYLENOL) tablet 650 mg 04-04 18:39: 00 Yes 650mg [facility] acetaminoph en (TYLENOL) tablet 1,000 mg 04-04 18:00: 00 04-04 18:04 :00 No 1000mg 1,000 mg, Oral, ONCE, 1 dose, On Thu04/04/24 at 1300, MJ [facility] nitroglycer in (NITROSTAT) sublingual tablet 0.4 mg 04-04 18:00: 00 04-04 18:05 :00 No .4mg 0.4 mg, Sublingual , ONCE, 1 dose, On Thu04/04/24 at 1300, MJ [facility] HYDROcodone -acetaminop hen (NORCO) 10-325 mg tablet 1 tablet 03-05 01:30: 00 03-05 00:44 :00 No 1{tbl} 1 tablet, Oral, ONCE, 1 dose, On Thu03/04/24 at 2030, Routine [facility] magnesium oxide (MAGOX) 400 mg (241.3 mg magnesium) tablet 01-11 07:19: 24 01-11 00:00 :00 No 400mg Take 1 tablet by mouth in the morning. [facility] carvediloL 25 mg tablet 01-11 07:09: 01-04 00:00 :00 No 25mg Take 1 tablet by mouth in the morning and 1 tablet in the evening. Take with meals. [facility] empaglifloz in (JARDIANCE) 10 mg 01-11 07:09: 01-04 00:00 :00 No 10mg Take 1 tablet by mouth in the morning. [facility] busPIRone 5 mg tablet 01-11 07:09: 01-04 00:00 :00 No 5mg Take 1 tablet by mouth in the morning and 1 tablet in the evening. [facility] spironolact one (ALDACTONE) 25 mg tablet 01-11 07:09: 34 01-04 00:00 :00 No 25mg Take 1 tablet by mouth in the morning. [facility] spironolact one (ALDACTONE) 25 mg tablet 01-11 00:00: 00 05-17 00:00 :00 No [id number] 25mg Take 1 tablet by mouth in the morning. [facility] atorvastati n 40 mg tablet 01-11 00:00: 05-17 00:00 :00 No [id number] 40mg Take 1 tablet by mouth at bedtime. [facility] busPIRone 5 mg tablet 01-11 00:00: 00 05-17 00:00 :00 No [id number] 5mg Take 1 tablet by mouth in the morning and 1 tablet in the evening. [facility] carvediloL 25 mg tablet 01-11 00:00: 00 05-17 00:00 :00 No [id number] 25mg Take 1 tablet by mouth in the morning and 1 tablet in the evening. Take with meals. [facility] empaglifloz in (JARDIANCE) 10 mg tablet 01-11 00:00: 00 05-17 00:00 :00 No [id number] 10mg Take 1 tablet by mouth in the morning. [facility] gabapentin 100 mg capsule 01-11 00:00: 00 05-17 00:00 :00 No [id number] 100mg Take 1 capsule by mouth in the morning and 1 capsule at noon and 1 capsule in the evening. [facility] glipiZIDE 5 mg tablet 01-11 00:00: 00 05-17 00:00 :00 No [id number] 5mg Take 1 tablet by mouth 2 (two) times daily before breakfast and dinner. [facility] diclofenac dodium (VOLTAREN) 1 % gel 01-11 00:00: 00 05-17 00:00 :00 No [id number] 4g Apply 4 g to area(s) 4 (four) times daily. Apply 4 g qid [facility] aspirin 81 mg chewable tablet 01-11 00:00: 00 04-13 00:00 :00 No [id number] 81mg Take 1 tablet by mouth in the morning. [facility] allopurinoL 300 mg tablet 01-11 00:00: 00 04-13 00:00 :00 No [id number] 300mg Take 1 tablet by mouth every morning. [facility] apixaban 5 mg tablet 01-11 00:00: 00 04-13 00:00 :00 No [id number] 5mg Take 1 tablet by mouth in the morning and 1 tablet in the evening. Indication s: atrial fibrillati on [facility] furosemide 40 mg tablet 01-11 00:00: 00 04-13 00:00 :00 No [id number] 40mg Take 1 tablet by mouth in the morning. [facility] lisinopriL 2.5 mg tablet 01-04 15:31: 00 05-17 00:00 :00 No 2.5mg Take 1 tablet by mouth in the morning. [facility] tiZANidine 2 mg tablet 01-04 15:30: 36 01-04 00:00 :00 No 2mg Take 2 mg by mouth every 8 (eight) hours as needed. [facility] colchicine 0.6 mg tablet 01-04 15:30: 36 01-04 00:00 :00 No .6mg Take 1 tablet by mouth in the morning. [facility] magnesium oxide (MAGOX) 400 mg (241.3 mg magnesium) tablet 09-06 20:38: 56 Yes 400mg Take 1 tablet by mouth in the morning. [facility] lisinopriL 2.5 mg tablet 09-06 20:38: 07 Yes 2.5mg Take 1 tablet by mouth in the morning. [facility] carvediloL 25 mg tablet 09-06 20:38: 00 Yes 25mg Take 1 tablet by mouth in the morning and 1 tablet in the evening. Take with meals. [facility] apixaban 5 mg tablet 09-06 00:00: 00 01-04 00:00 :00 No [id number] 5mg Take 1 tablet by mouth in the morning and 1 tablet in the evening. Indication s: atrial fibrillati on [facility] spironolact one (ALDACTONE) 25 mg tablet 09-02 13:57: 59 Yes 25mg Take 1 tablet by mouth in the morning. [facility] busPIRone 5 mg tablet 09-02 13:55: 32 Yes 5mg Take 1 tablet by mouth in the morning and 1 tablet in the evening. [facility] colchicine 0.6 mg tablet 09-02 13:55: 32 Yes .6mg Take 1 tablet by mouth in the morning. [facility] empaglifloz in (JARDIANCE) 10 mg 09-02 13:34: 02 Yes 10mg Take 1 tablet by mouth in the morning. [facility] allopurinoL 300 mg tablet 08-03 00:00: 00 01-04 00:00 :00 No 300mg Take 1 tablet by mouth in the morning. [facility] sulfur hexafluorid e microsphr (LUMASON) injection 5 mL 2022-08 21:00: 00 07-30 20:57 :00 No [id number] 5mL 5 mL, Intravenou s, ONCE, 1 dose, On Smiley 07/30/23 at 1500, Routine
guardian family member approving Restricted medication : CORNELIA SANDERSON [facility] spironolact one (ALDACTONE) 25 mg tablet 05-01 13:03: 07 05-01 00:00 :00 No 25mg Take 1 tablet by mouth in the morning. [facility] empaglifloz in (JARDIANCE) 10 mg 05-01 10:59: 23 Yes 10mg Take 1 tablet by mouth in the morning. [facility] carvediloL 25 mg tablet 05-01 10:38: 09 Yes 25mg Take 1 tablet by mouth in the morning and 1 tablet in the evening. Take with meals. [facility] lisinopriL 2.5 mg tablet 05-01 10:38: 09 Yes 2.5mg Take 1 tablet by mouth in the morning. [facility] magnesium oxide (MAGOX) 400 mg (241.3 mg magnesium) tablet 05-01 10:38: 09 Yes 400mg Take 1 tablet by mouth in the morning. [facility] atorvastati n 40 mg tablet 05-01 00:00: 00 01-04 00:00 :00 No [id number] 40mg Take 1 tablet by mouth at bedtime. [facility] HYDROcodone -acetaminop hen (NORCO 5) 5-325 mg tablet 1 tablet 03-28 04:00: 00 03-28 03:48 :00 No 1{tbl} 1 tablet, Oral, ONCE, 1 dose, On Thu03/27/23 at 2300, Routine [facility] hydrocortis one 25 mg suppository 03-28 00:00: 00 01-04 00:00 :00 No [id number] 25mg Insert 1 Suppositor y into rectum 2 (two) times daily as needed for Rectal itching/pa in for up to 15 doses. [facility] furosemide 40 mg tablet 03-25 00:00: 00 01-11 00:00 :00 No 40mg Take 1 tablet by mouth in the morning and 1 tablet in the evening. [facility] furosemide (LASIX) 20 mg tablet 10-27 11:08: 48 10-27 00:00 :00 No 20mg Take 20 mg by mouth in the morning. [facility] dapaglifloz in (FARXIGA) 10 mg tablet 10-27 11:08: 45 10-27 00:00 :00 No 10mg Take 10 mg by mouth daily. [facility] empaglifloz in (JARDIANCE) 10 mg 10-27 11:05: 13 Yes 10mg Take 1 tablet by mouth in the morning. [facility] carvediloL 25 mg tablet 10-27 10:49: 14 Yes 25mg Take 25 mg by mouth in the morning and 25 mg in the evening. Take with meals. [facility] magnesium oxide (MAGOX) 400 mg (241.3 mg magnesium) tablet 10-27 10:49: 10 Yes 400mg Take 400 mg by mouth in the morning. [facility] spironolact one (ALDACTONE) 25 mg tablet 10-27 10:49: 07 Yes 25mg Take 25 mg by mouth in the morning. [facility] lisinopriL 2.5 mg tablet 10-27 10:49: 06 Yes 2.5mg Take 2.5 mg by mouth in the morning. [facility] dapaglifloz in (FARXIGA) 10 mg tablet 08-21 15:48: 43 Yes 10mg Take 10 mg by mouth daily. [facility] furosemide (LASIX) 20 mg tablet 08-21 15:48: 43 Yes 20mg Take 20 mg by mouth in the morning. [facility] lisinopriL 2.5 mg tablet 08-21 15:48: 43 Yes 2.5mg Take 2.5 mg by mouth in the morning. [facility] magnesium oxide (MAGOX) 400 mg (241.3 mg magnesium) tablet 08-21 15:48: 43 Yes 400mg Take 400 mg by mouth in the morning. [facility] spironolact one (ALDACTONE) 25 mg tablet 08-21 15:48: 43 Yes 25mg Take 25 mg by mouth in the morning. [facility] tiZANidine 2 mg tablet 08-21 09:52: 34 Yes 2mg Take 2 mg by mouth every 8 (eight) hours as needed. [facility] carvediloL 25 mg tablet 08-21 09:52: 34 Yes 25mg Take 25 mg by mouth in the morning and 25 mg in the evening. Take with meals. [facility] carvediloL (COREG) tablet 25 mg 2021-08 00:00: 00 06-09 23:35 :00 No 25mg 25 mg, Oral, ONCE, 1 dose, On 06/09/22 at 1800, Routine [facility] tiZANidine 2 mg tablet 2021-08 18:34: 04 Yes 2mg Take 2 mg by mouth every 8 (eight) hours as needed. [facility] carvediloL 25 mg tablet 2021-08 18:34: 04 Yes 25mg Take 25 mg by mouth in the morning and 25 mg in the evening. Take with meals. [facility] apixaban 2.5 mg tablet 2021-08 00:00: 00 09-06 00:00 :00 No [id number] 2.5mg Take 1 tablet by mouth in the morning and 1 tablet in the evening. Indication s: atrial fibrillati on [facility] NaCl 0.9% (NS) IV infusion 2021-08 04:45: 00 Yes at 75 mL/hr, IV Infusion, CONTINUOUS , Starting on 06/07/22 at 2345, Until Discontinu ed, Routine [facility] apixaban (ELIQUIS) tablet 2.5 mg 2021-08 01:00: 00 Yes 1358 2.5mg 2.5 mg, Oral, BID, First dose (after last modificati on) on 06/07/22 at 2000, Until Discontinu ed, Routine
Indicatio ns: Non-Valvul ar Atrial Fibrillati on [facility] Sliding Scale Insulin - Lispro (HumaLOG) + Fsbg Testing 2021-08 17:00: 00 Yes Subcutaneo us, TID MEALS+HS, First dose on 06/07/22 at 1200, Until Discontinu ed, Routine [facility] NaCl 0.9% (NS) bolus infusion 1,000 mL 2021-08 15:30: 00 06-07 23:27 :00 No 1000mL at 75 mL/hr, 1,000 mL, IV Piggyback, ONCE, 1 dose, On 06/07/22 at 1030, STAT [facility] NaCl 0.9% (NS) bolus infusion 500 mL 2021-08 14:00: 00 06-07 13:26 :44 No 500mL at 999 mL/hr, 500 mL, IV Piggyback, ONCE, 1 dose, On 06/07/22 at 0900, STAT [facility] glucagon (GLUCAGEN DIAGNOSTIC KIT) injection 1 mg 2021-08 13:02: 13 Yes 1mg 1 mg, Intramuscu lar, PRN, Starting on 06/07/22 at 0802, Until Discontinu ed, MJ, Blood Glucose < or = 70 mg/dL and patient is unable to swallow or has mental changes. [facility] dextrose 50 % in water (D50W) injection 25 mL 2021-08 13:02: 13 Yes 25mL 25 mL, Slow IV Push, PRN, Starting on 06/07/22 at 0802, Until Discontinu ed, MJ, Blood Glucose < or = 70 mg/dL and patient is unable to swallow or has mental status changes. [facility] proMETHazin e (PHENERGAN) 25 mg in NaCl 0.9% (NS) 50 mL IV piggyback 2021-08 15:17: 15 Yes 25mg 25 mg, IV Piggyback, Q4HPRN, Starting on Thu06/06/22 at 1017, Until Discontinu ed, Routine, Nausea and Vomiting (N/V), N/V unresponsi ve to Ondansetro n [facility] omeprazole (PRILOSEC) capsule 40 mg 2021-08 14:00: 00 Yes 40mg 40 mg, Oral, DAILY, First dose on Thu06/06/22 at 0900, Until Discontinu ed [facility] aspirin EC tablet 81 mg 2021-08 14:00: 00 Yes 81mg 81 mg, Oral, DAILY, First dose on Thu06/06/22 at 0900, Until Discontinu ed, Routine [facility] bumetanide (BUMEX) tablet 4 mg 2021-08 14:00: 00 06-07 05:10 :36 No 4mg 4 mg, Oral, DAILY, First dose on Thu06/06/22 at 0900, Until Discontinu ed, Routine [facility] spironolact one (ALDACTONE) tablet 25 mg 2021-08 14:00: 00 06-07 05:10 :36 No 25mg 25 mg, Oral, DAILY, First dose on Thu06/06/22 at 0900, Until Discontinu ed, Routine [facility] lisinopriL (PRINIVIL,Z ESTRIL) tablet 2.5 mg 2021-08 14:00: 00 06-06 21:33 :34 No 2.5mg 2.5 mg, Oral, DAILY, First dose on Thu06/06/22 at 0900, Until Discontinu ed, Routine [facility] carvediloL (COREG) tablet 25 mg 2021-08 13:00: 00 06-07 05:10 :36 No 25mg 25 mg, Oral, BID MEALS, First dose on Thu06/06/22 at 0800, Until Discontinu ed, Routine [facility] glipiZIDE (GLUCOTROL) tablet 2.5 mg 2021-08 12:30: 00 06-07 13:02 :42 No 2.5mg 2.5 mg, Oral, BIDAC, First dose (after last modificati on) on Thu06/06/22 at 0730, Until Discontinu ed, Routine [facility] NaCl 0.9% (NS) IV infusion 500 mL 2021-08 04:30: 00 06-06 12:34 :35 No 500mL at 20 mL/hr, IV Infusion, CONTINUOUS , Starting on Thu06/05/22 at 2330, Until Thu06/06/22 at 0734, Routine [facility] atorvastati n (LIPITOR) tablet 80 mg 2021-08 02:00: 00 Yes 80mg 80 mg, Oral, QHS, First dose on Thu06/05/22 at 2100, Until Discontinu ed, Routine [facility] ondansetron (ZOFRAN (PF)) injection 4 mg 2021-08 01:37: 42 Yes 4mg 4 mg, Slow IV Push, Q6HPRN, Nausea and Vomiting (N/V), Starting on Thu06/05/22 at 2037
Do ses of ondansetro n 16 mg and above need to be administer ed via IV piggyback. For Dose >=24mg ECG monitoring is advisable.
[facility] bumetanide (BUMEX) tablet 3 mg 2021-08 01:00: 00 06-07 05:10 :35 No 3mg 3 mg, Oral, QPM AT 1999, First dose on Thu06/05/22 at 1999, Until Discontinu ed, Routine [facility] apixaban (ELIQUIS) tablet 5 mg 2021-08 01:00: 00 06-07 14:38 :03 No 1358 5mg 5 mg, Oral, BID, First dose on Thu06/05/22 at 1999, Until Discontinu ed, Routine
Indicatio ns: Non-Valvul ar Atrial Fibrillati on [facility] acetaminoph en (TYLENOL) tablet 650 mg 2021-08 23:47: 33 Yes 650mg 650 mg, Oral, Q6HPRN, Starting on Thu06/05/22 at 1847, Until Discontinu ed, Routine, Pain (scale 1-3) [facility] tiZANidine 2 mg tablet 2021-08 19:33: 24 Yes 2mg Take 2 mg by mouth every 8 (eight) hours as needed. [facility] carvediloL 25 mg tablet 2021-08 19:33: 24 Yes 25mg Take 25 mg by mouth in the morning and 25 mg in the evening. Take with meals. [facility] HYDROcodone -acetaminop hen (NORCO 5) 5-325 mg tablet 1 tablet 2021-08 13:45: 00 06-04 13:00 :00 No 1{tbl} 1 tablet, Oral, ONCE, 1 dose, On Thu06/04/22 at 0845, Routine [facility] tiZANidine 2 mg tablet 2021-08 11:37: 59 Yes 2mg Take 2 mg by mouth every 8 (eight) hours as needed. [facility] carvediloL 25 mg tablet 2021-08 11:37: 59 Yes 25mg Take 25 mg by mouth in the morning and 25 mg in the evening. Take with meals. [facility] lisinopriL 2.5 mg tablet 2021-08 00:00: 00 07-04 05:59 :00 No [id number] 2.5mg Take 1 tablet by mouth in the morning for [facility] days[facility] bumetanide (BUMEX) tablet 4 mg 2021-08 16:00: 00 Yes 4mg 4 mg, Oral, Q6H ABX, First dose (after last modificati on) on Thu06/02/22 at 1100, Until Discontinu ed, Routine [facility] metOLazone (ZAROXOLYN) tablet 5 mg 2021-08 14:00: 00 Yes 5mg 5 mg, Oral, QAM+PM, First dose on Thu06/02/22 at 0900, Until Discontinu ed, Routine [facility] lisinopriL (PRINIVIL,Z ESTRIL) tablet 2.5 mg 2021-08 14:00: 00 Yes 2.5mg 2.5 mg, Oral, DAILY, First dose on Thu06/02/22 at 0900, Until Discontinu ed, Routine [facility] omeprazole (PRILOSEC) capsule 40 mg 2021-08 14:00: 00 Yes 40mg 40 mg, Oral, DAILY, First dose on Thu06/02/22 at 0900, Until Discontinu ed [facility] magnesium oxide (MAG-OX 400) tablet 400 mg 2021-08 14:00: 00 Yes 400mg 400 mg, Oral, DAILY, First dose on Thu06/02/22 at 0900, Until Discontinu ed [facility] docusate (COLACE) capsule 100 mg 2021-08 14:00: 00 Yes 100mg 100 mg, Oral, DAILY, First dose on Thu06/02/22 at 0900, Until Discontinu ed [facility] aspirin EC tablet 81 mg 2021-08 14:00: 00 Yes 81mg 81 mg, Oral, DAILY, First dose on Thu06/02/22 at 0900, Until Discontinu ed, Routine [facility] Sliding Scale Insulin - Lispro (HumaLOG) + Fsbg Testing 2021-08 13:00: 00 Yes Subcutaneo us, TID MEALS, First dose (after last modificati on) on Thu06/02/22 at 0800, Until Discontinu ed, Routine [facility] bumetanide (BUMEX) tablet 4 mg 2021-08 08:30: 00 06-02 13:29 :27 No 4mg 4 mg, Oral, Q6HA, First dose (after last modificati on) on Thu06/02/22 at 0330, Until Discontinu ed, Routine [facility] spironolact one (ALDACTONE) tablet 25 mg 2021-08 06:00: 00 Yes 25mg 25 mg, Oral, BID, First dose (after last modificati on) on Thu06/02/22 at 0100, Until Discontinu ed, Routine [facility] ipratropium -albuteroL (DUONEB) 0.5 mg-3 mg(2.5 mg base)/3 mL nebulizer solution 3 mL 2021-08 05:40: 49 Yes 3mL 3 mL, Inhalation , QIDPRN, Starting on Thu06/02/22 at 0040, Until Discontinu ed, Routine, Wheezing, Bronchospa sm, Shortness of Breath [facility] zolpidem (AMBIEN) tablet 5 mg 2021-08 04:02: 27 Yes 5mg 5 mg, Oral, QHSPRN, Starting on Thu06/01/22 at 2302, Until Discontinu ed, Routine, Insomnia [facility] morpHINE (2 mg/mL) injection 2 mg 2021-08 04:02: 22 Yes 2mg 2 mg, Slow IV Push, Q4HPRN, Starting on Thu06/01/22 at 2302, Until Discontinu ed, Routine, Pain (scale 7-10) [facility] atorvastati n (LIPITOR) tablet 80 mg 2021-08 02:00: 00 Yes 80mg 80 mg, Oral, QHS, First dose on Thu06/01/22 at 2100, Until Discontinu ed, Routine [facility] apixaban (ELIQUIS) tablet 5 mg 2021-08 01:00: 00 Yes 1358 5mg 5 mg, Oral, BID, First dose on 06/01/22 at 2000, Until Discontinu ed, Routine
Indicatio ns: Non-Valvul ar Atrial Fibrillati on [facility] carvediloL (COREG) tablet 25 mg 2021-08 22:00: 00 Yes 25mg 25 mg, Oral, BID MEALS, First dose on 06/01/22 at 1700, Until Discontinu ed, Routine [facility] bumetanide (BUMEX) tablet 3 mg 2021-08 22:00: 00 06-02 05:50 :58 No 3mg 3 mg, Oral, QPM, First dose on 06/01/22 at 1700, Until Discontinu ed, Routine [facility] glipiZIDE (GLUCOTROL) tablet 5 mg 2021-08 21:30: 00 06-02 05:50 :58 No 5mg 5 mg, Oral, BIDAC, First dose on 06/01/22 at 1630, Until Discontinu ed, Routine [facility] glucagon (GLUCAGEN DIAGNOSTIC KIT) injection 1 mg 2021-08 21:11: 01 Yes 1mg 1 mg, Intramuscu lar, PRN, Starting on Thu06/01/22 at 1611, Until Discontinu ed, MJ, Blood Glucose < or = 70 mg/dL and patient is unable to swallow or has mental changes. [facility] dextrose 50 % in water (D50W) injection 25 mL 2021-08 21:11: 01 Yes 25mL 25 mL, Slow IV Push, PRN, Starting on 06/01/22 at 1611, Until Discontinu ed, MJ, Blood Glucose < or = 70 mg/dL and patient is unable to swallow or has mental status changes. [facility] ondansetron (ZOFRAN (PF)) injection 4 mg 2021-08 20:32: 46 Yes 4mg 4 mg, Slow IV Push, Q6HPRN, Starting on 06/01/22 at 1532, Until Discontinu ed, Routine, Nausea and Vomiting (N/V) [facility] acetaminoph en (TYLENOL) tablet 650 mg 2021-08 20:30: 48 Yes 650mg 650 mg, Oral, Q6HPRN, Starting on 06/01/22 at 1530, Until Discontinu ed, Routine, Pain (scale 1-3) [facility] furosemide (LASIX) injection 40 mg 2021-08 18:45: 00 06-01 18:53 :00 No 40mg 40 mg, IV Push, ONCE, 1 dose, On 06/01/22 at 1345, MJ [facility] carvediloL 25 mg tablet 2021-08 16:31: 23 Yes 25mg Take 25 mg by mouth in the morning and 25 mg in the evening. Take with meals. [facility] tiZANidine 2 mg tablet 2021-08 15:34: 08 Yes 2mg Take 2 mg by mouth every 8 (eight) hours as needed. [facility] tiZANidine 2 mg tablet 2021-08 13:38: 01 Yes 2mg Take 2 mg by mouth every 8 (eight) hours as needed. [facility] carvediloL 25 mg tablet 2021-08 13:38: 01 Yes 25mg Take 25 mg by mouth in the morning and 25 mg in the evening. Take with meals. [facility] tiZANidine 2 mg tablet 2021-08 06:31: 05 Yes 2mg Take 2 mg by mouth every 8 (eight) hours as needed. [facility] carvediloL 25 mg tablet 2021-08 06:31: 05 Yes 25mg Take 25 mg by mouth in the morning and 25 mg in the evening. Take with meals. [facility] iopamidol (ISOVUE 370-500 mL) injection 74 mL 2021-08 18:45: 00 05-22 18:45 :00 No [id number] 74mL 74 mL, Intravenou s, ONCE, 1 dose, On Thu05/22/22 at 1345, Routine [facility] pantoprazol e (PROTONIX) 80 mg in NaCl 0.9% (NS) 20 mL syringe 2021-08 17:15: 00 05-22 17:17 :00 No 80mg 80 mg, IV Push, ONCE, 1 dose, On Smiley 05/22/22 at 1215, Administer over 2 Minutes, 20 mL [facility] amoxicillin -clavulanat e 875-125 mg per tablet 2021-08 00:00: 00 06-03 00:00 :00 No [id number] 1{tbl} Take 1 tablet by mouth every 12 (twelve) hours for 10 days. [facility] hydralAZINE (APRESOLINE ) injection 20 mg 2021-08 18:30: 00 05-20 17:45 :00 No 20mg 20 mg, Slow IV Push, ONCE, 1 dose, On Thu05/20/22 at 1330, STAT [facility] cloNIDine (CATAPRES) tablet 0.2 mg 2021-08 17:45: 00 05-20 17:45 :00 No .2mg 0.2 mg, Oral, ONCE, 1 dose, On Thu05/20/22 at 1245, STAT [facility] dapaglifloz in 10 mg tablet 2021-08 00:00: 00 06-16 05:59 :00 No [id number] 10mg Take 1 tablet by mouth in the morning for 30 days. [facility] predniSONE 10 mg tablet 2021-08 0-14 00:00: 00 05-26 04:59 :00 No [id number] Take 2 tablets by mouth daily for 3 days, THEN 1 tablet daily for 3 days, THEN 0.5 tablets daily for 3 days. [facility] sacubitriL- valsartan (ENTRESTO) 24-26 mg tablet 2021-08 0-14 00:00: 00 05-15 00:00 :00 No [id number] 1{tbl} Take 1 tablet by mouth in the morning and 1 tablet in the evening. Do all this for 30 days. [facility] bumetanide (BUMEX) tablet 3 mg 2021-08 22:00: 00 Yes 3mg 3 mg, Oral, QPM, First dose on Thu05/15/22 at 1700, Until Discontinu ed, Routine [facility] tiZANidine 2 mg tablet 2021-08 19:16: 30 Yes 2mg Take 2 mg by mouth every 8 (eight) hours as needed. [facility] carvediloL 25 mg tablet 2021-08 19:16: 30 Yes 25mg Take 25 mg by mouth in the morning and 25 mg in the evening. Take with meals. [facility] spironolact one (ALDACTONE) tablet 25 mg 2021-08 14:00: 00 Yes 25mg 25 mg, Oral, DAILY, First dose on Thu05/15/22 at 0900, Until Discontinu ed, Routine [facility] apixaban (ELIQUIS) tablet 5 mg 2021-08 01:00: 00 Yes 5mg 5 mg, Oral, BID, First dose on Thu05/14/22 at 2000, Until Discontinu ed, Routine
Indicatio ns: Non-Valvul ar Atrial Fibrillati on [facility] spironolact one (ALDACTONE) 25 mg tablet 2021-08 00:00: 00 06-15 05:59 :00 No [id number] 25mg Take 1 tablet by mouth in the morning. [facility] iron dextran (INFED) 1,000 mg in NaCl 0.9% (NS) 500 mL IV infusion 2021-08 14:45: 00 05-14 18:25 :00 No 1000mg 1,000 mg, IV Infusion, ONCE, 1 dose, On Thu05/14/22 at 0945, Administer over 1.5 Hours, 500 mL [facility] iron dextran (INFED) 25 mg in NaCl 0.9% (NS) 100 mL IV piggyback 2021-08 14:45: 00 05-14 16:55 :00 No 25mg 25 mg, IV Piggyback, ONCE, 1 dose, On Thu05/14/22 at 0945, Administer over 15 Minutes, 100 mL [facility] predniSONE (DELTASONE) tablet 30 mg 2021-08 01:00: 00 Yes 30mg 30 mg, Oral, DAILY, First dose on Thu05/13/22 at 2000, Until Discontinu ed, Routine [facility] acetaminoph en (TYLENOL) tablet 325 mg 2021-08 22:23: 27 Yes 325mg 325 mg, Oral, Q6HPRN, Starting on Thu05/13/22 at 1723, Until Discontinu ed, Routine, Pain (scale 1-3) [facility] acetaminoph en-codeine (TYLENOL #3) 300-30 mg tablet 1 tablet 2021-08 22:21: 47 Yes 1{tbl} 1 tablet, Oral, Q6HPRN, Starting on Thu05/13/22 at 1721, Until Discontinu ed, Routine, Pain (scale 7-10) [facility] sulfur hexafluorid e microsphr (LUMASON) injection 5 mL 2021-08 17:15: 00 05-13 16:35 :00 No [id number] 5mL 5 mL, Intravenou s, ONCE, 1 dose, On Thu05/13/22 at 1215, Routine
guardian family member approving Restricted medication : TIO PEREZ [facility] bumetanide (BUMEX) tablet 3 mg 2021-08 22:00: 00 05-14 12:16 :52 No 3mg 3 mg, Oral, QPM, First dose on Thu05/12/22 at 1700, Until Discontinu ed, Routine [facility] nitroglycer in (NITROSTAT) sublingual tablet 0.4 mg 2021-08 20:54: 18 Yes .4mg 0.4 mg, Sublingual , Q5MIN PRN, Starting on Thu05/12/22 at 1554, Until Discontinu ed, Routine, Chest pain [facility] nitroglycer in (NITROSTAT) sublingual tablet 0.4 mg 2021-08 18:16: 00 05-12 18:33 :00 No .4mg 0.4 mg, Sublingual , ONCE, 1 dose, On Thu05/12/22 at 1330, Routine [facility] trimethoben zamide (TIGAN) injection 200 mg 2021-08 17:19: 25 Yes 200mg 200 mg, Intramuscu lar, Q6HPRN, Starting on Thu05/12/22 at 1219, Until Discontinu ed, Routine, Nausea and Vomiting (N/V) [facility] bumetanide (BUMEX) tablet 4 mg 2021-08 14:00: 00 05-14 12:16 :52 No 4mg 4 mg, Oral, QAM, First dose on Thu05/12/22 at 0900, Until Discontinu ed, Routine [facility] magnesium sulfate in water 4 gram/50 mL (8 %) IV Piggyback 4 g 2021-08 14:00: 00 05-12 16:28 :00 No 4g 4 g, IV Piggyback, at 25 mL/hr Administer over 120 Minutes, ONCE, 1 dose, On Thu05/12/22 at 0900, Routine [facility] alum-mag hydroxide-s imeth (MAALOX PLUS / MAG-AL PLUS) 200-200-20 mg/5 mL suspension 30 mL 2021-08 03:00: 00 05-12 02:17 :00 No 30mL 30 mL, Oral, ONCE, 1 dose, On Thu05/11/22 at 2200, Routine [facility] lidocaine (LIDODERM) 5 % (700 mg/patch) patch 1 Patch 2021-08 03:00: 00 05-12 14:17 :00 No 1{patch } 1 Patch, Topical, Administer over 12 Hours, ONCE, 1 dose, On Thu05/11/22 at 2200, Routine [facility] atorvastati n (LIPITOR) tablet 80 mg 2021-08 02:00: 00 Yes 80mg 80 mg, Oral, QHS, First dose on Thu05/11/22 at 2100, Until Discontinu ed, Routine [facility] carvediloL (COREG) tablet 25 mg 2021-08 22:00: 00 Yes 25mg 25 mg, Oral, BID MEALS, First dose (after last modificati on) on 05/11/22 at 1700, Until Discontinu ed, Routine [facility] Sliding Scale Insulin - Lispro (HumaLOG) + Fsbg Testing 2021-08 22:00: 00 Yes Subcutaneo us, TID MEALS+HS, First dose on Thu05/11/22 at 1700, Until Discontinu ed, Routine [facility] furosemide (LASIX) injection 40 mg 2021-08 22:00: 00 05-12 13:32 :13 No 40mg 40 mg, Slow IV Push, QAM+PM, First dose on Thu05/11/22 at 1700, Until Discontinu ed, Routine [facility] hydrALAZINE (APRESOLINE ) tablet 25 mg 2021-08 20:00: 00 05-12 11:16 :54 No 25mg 25 mg, Oral, Q6H, First dose on Thu05/11/22 at 1500, Until Discontinu ed, Routine [facility] gabapentin (NEURONTIN) capsule 100 mg 2021-08 19:00: 00 Yes 100mg 100 mg, Oral, TID, First dose on Thu05/11/22 at 1400, Until Discontinu ed, Routine [facility] aspirin EC tablet 81 mg 2021-08 17:45: 00 Yes 81mg 81 mg, Oral, DAILY, First dose (after last modificati on) on 05/11/22 at 1245, Until Discontinu ed, Routine [facility] omeprazole (PRILOSEC) capsule 40 mg 2021-08 17:45: 00 Yes 40mg 40 mg, Oral, DAILY, First dose (after last modificati on) on 05/11/22 at 1245, Until Discontinu ed, Routine [facility] lisinopriL (PRINIVIL,Z ESTRIL) tablet 2.5 mg 2021-08 17:45: 00 05-13 16:39 :15 No 2.5mg 2.5 mg, Oral, DAILY, First dose (after last modificati on) on 05/11/22 at 1245, Until Discontinu ed, Routine [facility] spironolact one (ALDACTONE) tablet 50 mg 2021-08 17:45: 00 05-13 16:39 :15 No 50mg 50 mg, Oral, DAILY, First dose (after last modificati on) on 05/11/22 at 1245, Until Discontinu ed, Routine [facility] dextrose 10% (D10W) bolus infusion 250 mL 2021-08 17:11: 26 Yes 250mL 250 mL, IV Infusion, PRN - SEE INSTRUCTIO NS, Administer over 60 Minutes, Other, If blood glucose is < or = 70 mg/dL and patient is unable to swallow or has mental status changes, Starting on [place] 05/11/22 at 1211
If blood glucose is [...] blood glucose is < 80 mg/dL, repeat.
[facility] glucagon (GLUCAGEN DIAGNOSTIC KIT) injection 1 mg 2021-08 17:11: 26 Yes 1mg 1 mg, Intramuscu lar, PRN, Starting on [place] 05/11/22 at 1211, Until Discontinu ed, MJ, Blood Glucose < or = 70 mg/dL and patient is unable to swallow or has mental changes. [facility] heparin 1000 unit/mL injection Soln 5,000 Units 2021-08 16:30: 00 05-11 18:11 :00 No 5000U 5,000 Units, IV Push, ONCE, 1 dose, On 05/11/22 at 1130, Routine [facility] heparin (1,000 unit/mL, 10 mL vial) 2021-08 0 16:01: 34 05-14 14:00 :45 No 3000U FOR REBOLUSING , Starting on 05/11/22 at 1101, Until Thu05/14/22 at 0900, Routine
Dosing based on aPTT testing parameters (refer to continuous heparin drip order)
[facility] heparin 25,000 Units/250 mL (Premixed Bag) in 0.45 % NS 2021-08 0 16:01: 34 05-14 14:00 :45 No 1300U/h [...] INITIAL INFUSION RATE.&nbsp ; _ &nb sp;FOR [place], [facility], AND [facility] ONLY &nbs p; - aPTT [...] bsp;&n bsp; ____ &nbs p; FO R [facility] ONLY - aPTT < 40: & [...] once therapeuti c levels are reached.<b r> [facility] acetaminoph en (TYLENOL) tablet 650 mg 2021-08 15:27: 54 05-13 22:23 :42 No 650mg 650 mg, Oral, Q6HPRN, Starting on Thu05/11/22 at 1027, Until Thu05/13/22 at 1723, Routine, Pain (scale 1-3) [facility] ondansetron (ZOFRAN (PF)) injection 4 mg 2021-08 13:30: 00 05-11 13:23 :00 No 4mg 4 mg, Slow IV Push, ONCE, 1 dose, On Thu05/11/22 at 0830, MJ [facility] tiZANidine 2 mg tablet 2021-08 12:16: 40 Yes 2mg Take 2 mg by mouth every 8 (eight) hours as needed. [facility] carvediloL 25 mg tablet 2021-08 12:16: 40 Yes 25mg Take 25 mg by mouth in the morning and 25 mg in the evening. Take with meals. [facility] furosemide (LASIX) injection 80 mg 2021-08 09:30: 00 05-11 09:32 :00 No 80mg 80 mg, IV Push, ONCE, 1 dose, On Thu05/11/22 at 0430, MJ [facility] morpHINE (4 mg/mL) injection 4 mg 2021-08 09:15: 00 05-11 09:33 :00 No 4mg 4 mg, Slow IV Push, ONCE, 1 dose, On Thu05/11/22 at 0415, STAT [facility] cloNIDine (CATAPRES) tablet 0.1 mg 2021-08 08:15: 00 05-11 08:16 :00 No .1mg 0.1 mg, Oral, ONCE, 1 dose, On Thu05/11/22 at 0315, STAT [facility] acetaminoph en (TYLENOL) tablet 1,000 mg 2021-08 08:12: 17 05-11 08:16 :00 No 1000mg 1,000 mg, Oral, PRN, 1 dose, Starting on Thu05/11/22 at 0312, Until Thu05/11/22 at 0316, MJ, Pain (scale 4-6), headache [facility] benzonatate 100 mg capsule 2021-08 0-07 00:00: 00 06-03 00:00 :00 No [id number] 100mg Take 1 capsule by mouth 3 (three) times daily as needed for Cough. [facility] glipiZIDE 5 mg tablet 2021-08 0-05 00:00: 00 01-04 00:00 :00 No 5mg Take 5 mg in the morning and 5 mg in the evening. [facility] lisinopriL (PRINIVIL,Z ESTRIL) tablet 2.5 mg 2021-08 14:00: 00 Yes 2.5mg 2.5 mg, Oral, DAILY, First dose on Thu05/06/22 at 0900, Until Discontinu ed, Routine [facility] spironolact one (ALDACTONE) tablet 50 mg 2021-08 14:00: 00 Yes 50mg 50 mg, Oral, DAILY, First dose on Thu05/06/22 at 0900, Until Discontinu ed, Routine [facility] omeprazole (PRILOSEC) capsule 40 mg 2021-08 14:00: 00 Yes 40mg 40 mg, Oral, DAILY, First dose on Thu05/06/22 at 0900, Until Discontinu ed [facility] aspirin EC tablet 81 mg 2021-08 14:00: 00 Yes 81mg 81 mg, Oral, DAILY, First dose on Thu05/06/22 at 0900, Until Discontinu ed, Routine [facility] KCL (KLOR-CON M20) tablet 40 mEq 2021-08 13:30: 00 05-06 13:11 :00 No 40meq 40 mEq, Oral, ONCE, 1 dose, On Thu05/06/22 at 0830, Routine [facility] carvediloL (COREG) tablet 25 mg 2021-08 13:00: 00 Yes 25mg 25 mg, Oral, BID MEALS, First dose on Thu05/06/22 at 0800, Until Discontinu ed, Routine [facility] tiZANidine 2 mg tablet 2021-08 11:27: 10 Yes 2mg Take 2 mg by mouth every 8 (eight) hours as needed. [facility] carvediloL 25 mg tablet 2021-08 11:27: 10 Yes 25mg Take 25 mg by mouth in the morning and 25 mg in the evening. Take with meals. [facility] HYDROcodone -acetaminop hen (NORCO) 10-325 mg tablet 1 tablet 2021-08 10:16: 48 Yes 1{tbl} 1 tablet, Oral, Q6HPRN, Starting on Thu05/06/22 at 0516, Until Discontinu ed, Routine, Pain (scale 7-10) [facility] hydralAZINE (APRESOLINE ) injection 10 mg 2021-08 10:15: 52 Yes 10mg 10 mg, Slow IV Push, Q4HPRN, Starting on Thu05/06/22 at 0515, Until Discontinu ed, STAT, DBP=>100; SBP=>160, DBP=>100; SBP=>180 [facility] furosemide (LASIX) injection 40 mg 2021-08 0 03:00: 00 05-06 12:27 :38 No 40mg 40 mg, Slow IV Push, Q8H, First dose on Thu05/05/22 at 2200, Until Discontinu ed, Routine [facility] atorvastati n (LIPITOR) tablet 80 mg 2021-08 004 02:00: 00 Yes 80mg 80 mg, Oral, QHS, First dose on Thu05/05/22 at 2100, Until Discontinu ed, Routine [facility] hydralAZINE (APRESOLINE ) injection 20 mg 2021-08 0 01:15: 00 05-06 00:26 :00 No 20mg 20 mg, Slow IV Push, ONCE, 1 dose, On Thu05/05/22 at 2015, STAT [facility] apixaban (ELIQUIS) tablet 5 mg 2021-08 01:00: 00 Yes [id number] 5mg 5 mg, Oral, BID, First dose on Thu05/05/22 at 2000, Until Discontinu ed, Routine
Indicatio ns: Non-Valvul ar Atrial Fibrillati on [facility] HYDROcodone -acetaminop hen (NORCO 5) 5-325 mg tablet 1 tablet 2021-08 00:15: 49 05-08 00:14 :49 No 1{tbl} 1 tablet, Oral, Q6HPRN, Starting on Thu05/05/22 at 1915, Until Thu05/07/22 at 1914, Routine, Pain (scale 4-6) [facility] acetaminoph en (TYLENOL) tablet 650 mg 2021-08 00:15: 44 Yes 650mg 650 mg, Oral, Q6HPRN, Starting on Thu05/05/22 at 1915, Until Discontinu ed, Routine, Pain (scale 1-3) [facility] lisinopriL 2.5 mg tablet 2021-08 00:00: 00 06-06 04:59 :00 No [id number] 2.5mg Take 1 tablet by mouth in the morning. [facility] morpHINE (4 mg/mL) injection 4 mg 2021-08 23:30: 00 05-05 23:31 :00 No 4mg 4 mg, Slow IV Push, ONCE, 1 dose, On Thu05/05/22 at 1830, Routine [facility] hydrALAZINE (APRESOLINE ) tablet 25 mg 2021-08 22:45: 00 05-05 22:38 :00 No 25mg 25 mg, Oral, ONCE NOW, 1 dose, On Thu05/05/22 at 1745, MJ [facility] carvediloL 25 mg tablet 2021-08 20:01: 21 Yes 25mg Take 25 mg by mouth in the morning and 25 mg in the evening. Take with meals. [facility] tiZANidine 2 mg tablet 2021-08 19:45: 40 Yes 2mg Take 2 mg by mouth every 8 (eight) hours as needed. [facility] furosemide (LASIX) injection 80 mg 2021-08 19:45: 00 05-05 20:49 :00 No 80mg 80 mg, IV Push, ONCE, 1 dose, On 05/05/22 at 1445, MJ [facility] spironolact one (ALDACTONE) tablet 50 mg 04-30 14:00: 00 Yes 50mg 50 mg, Oral, DAILY, First dose on Thu04/30/22 at 0900, Until Discontinu ed, [facility] (PRIL[facility]SEC[facility] capsule 40 mg 04-30 14:00: 00 Yes 40mg 40 mg, Oral, DAILY, First dose on Thu04/30/22 at 0900, Until Discontinu ed, Routine [facility] magnesium oxide (MAGOX) 400 mg (241.3 mg magnesium) tablet 04-30 14:00: 00 Yes 400mg Take 1 tablet by mouth in the morning. [facility] docusate (COLACE) capsule 100 mg 04-30 14:00: 00 Yes 100mg 100 mg, Oral, DAILY, First dose on Thu04/30/22 at 0900, Until Discontinu ed [facility] cholecalcif mika (vitamin D3) tablet 1,000 Units 04-30 14:00: 00 Yes 1000U 1,000 Units, Oral, DAILY, First dose on Thu04/30/22 at 0900, Until Discontinu ed, Routine [facility] bumetanide (BUMEX) tablet 4 mg 04-30 14:00: 00 Yes 4mg 4 mg, Oral, DAILY, First dose on Thu04/30/22 at 0900, Until Discontinu ed, Routine [facility] aspirin EC tablet 81 mg 04-30 14:00: 00 Yes 81mg 81 mg, Oral, DAILY, First dose on Thu04/30/22 at 0900, Until Discontinu ed, Routine [facility] ti[facility] 2 mg tablet 04-30 11:36: 26 Yes 2mg Take 2 mg by mouth every 8 (eight) hours as needed. [facility] carvediloL (COREG) 25 mg tablet 04-30 11:36: 26 Yes 25mg Take 25 mg by mouth in the morning and 25 mg in the evening. Take with meals. [facility] atorvastati n (LIPITOR) tablet 80 mg 04-30 02:00: 00 Yes 80mg 80 mg, Oral, QHS, First dose on Thu04/29/22 at 2100, Until Discontinu ed, Routine [facility] gabapentin (NEURONTIN) capsule 100 mg 04-30 01:00: 00 Yes 100mg 100 mg, Oral, TID, First dose on Thu04/29/22 at 2000, Until Discontinu ed, Routine [facility] apixaban (ELIQUIS) tablet 5 mg 04-30 01:00: 00 Yes 1358 5mg 5 mg, Oral, BID, First dose on Thu04/29/22 at 2000, Until Discontinu ed, Routine
Indicatio ns: Non-Valvul ar Atrial Fibrillati on [facility] Sliding Scale Insulin - Lispro (HumaLOG) + Fsbg Testing 04-29 22:00: 00 Yes Subcutaneo us, TID MEALS+HS, First dose on Thu04/29/22 at 1700, Until Discontinu ed, Routine [facility] bumetanide (BUMEX) tablet 3 mg 04-29 22:00: 00 Yes 3mg 3 mg, Oral, QPM, First dose on Thu04/29/22 at 1700, Until Discontinu ed, Routine [facility] carvediloL (COREG) tablet 25 mg 04-29 22:00: 00 Yes 25mg 25 mg, Oral, BID MEALS, First dose on Thu04/29/22 at 1700, Until Discontinu ed, Routine [facility] dextrose 10% (D10W) bolus infusion 250 [...] blood glucose is < 80 mg/dL, repeat.
[facility] glucagon (GLUCAGEN DIAGNOSTIC KIT) injection 1 mg 04-29 21:10: 41 Yes 1mg 1 mg, Intramuscu lar, PRN, Starting on Thu04/29/22 at 1610, Until Discontinu ed, MJ, Blood Glucose < or = 70 mg/dL and patient is unable to swallow or has mental changes. [facility] ondansetron (ZOFRAN (PF)) injection 4 mg 04-29 21:10: 33 Yes 4mg 4 mg, Slow IV Push, Q6HPRN, Starting on Thu04/29/22 at 1610, Until Discontinu ed, Routine, Nausea and Vomiting (N/V) [facility] morpHINE (4 mg/mL) injection 4 mg 04-29 21:10: 30 04-30 21:09 :30 No 4mg 4 mg, Slow IV Push, Q4HPRN, Starting on Thu04/29/22 at 1610, Until Thu04/30/22 at 1609, Routine, Pain (scale 7-10) [facility] HYDROcodone -acetaminop hen (NORCO 5) 5-325 mg tablet 1 tablet 04-29 21:10: 28 05-01 21:09 :28 No 1{tbl} 1 tablet, Oral, Q6HPRN, Starting on Thu04/29/22 at 1610, Until Msiley 05/01/22 at 1609, Routine, Pain (scale 4-6) [facility] acetaminoph en (TYLENOL) tablet 650 mg 04-29 21:10: 25 Yes 650mg 650 mg, Oral, Q6HPRN, Starting on Thu04/29/22 at 1610, Until Discontinu ed, Routine, Pain (scale 1-3) [facility] tiZANidine (ZANAFLEX) tablet 4 mg 04-29 21:08: 14 Yes 4mg 4 mg, Oral, Q8HPRN, Starting on Thu04/29/22 at 1608, Until Discontinu ed, Routine, Muscle Spasms [facility] HYDROcodone -acetaminop hen (NORCO) 10-325 mg tablet 1 tablet 04-29 17:00: 00 04-29 16:01 :00 No 1{tbl} 1 tablet, Oral, ONCE NOW, 1 dose, On Thu04/29/22 at 1200, Routine [facility] hydralAZINE (APRESOLINE ) injection 10 mg 04-29 16:45: 00 04-29 16:50 :00 No 10mg 10 mg, Slow IV Push, ONCE, 1 dose, On Thu04/29/22 at 1145, MJ [facility] 04-28 00:00: 00 Yes [id number] Check sugars 1 times a day. Dx Code E11.9. Brand per insurance. [facility] 04-28 00:00: 00 04-13 00:00 :00 No [id number] Check sugars 1 times a day. Dx Code E11.9. Brand per insurance. [facility] Docusate Sodium 100 mg tablet 04-28 00:00: 00 01-04 00:00 :00 No [id number] 100mg Take 1 tablet by mouth in the morning. [facility] acetaminoph en-codeine 300-30 mg tablet 04-28 00:00: 00 01-04 00:00 :00 No [id number] 1{tbl} Take 1 tablet by mouth as needed (take daily as needed for severe right knee pain, s/p TKA, heart failure, unable to take NSAIDS). Indication s: chronic pain [facility] Blood-Gluco se Meter Kit 04-28 00:00: 00 05-05 00:00 :00 No [id number] Check sugars 1 times a day. Dx Code E11.9. Brand per insurance. [facility] blood sugar diagnostic strip 04-28 00:00: 00 05-05 00:00 :00 No [id number] Check sugars 1 times a day. Dx Code E11.9. Brand per insurance. [facility] semaglutide 7 mg Tab 04-26 00:00: 00 08-21 00:00 :00 No [id number] 7mg Take 7 mg by mouth daily. Take > 30 minutes prior to first meal of the day [facility] bumetanide (BUMEX) tablet 3 mg 04-24 02:00: 00 Yes 3mg 3 mg, Oral, QHS, First dose on Thu04/23/22 at 2100, Until Discontinu ed, Routine [facility] omeprazole (PRILOSEC) capsule 40 mg 04-23 14:00: 00 Yes 40mg 40 mg, Oral, DAILY, First dose on Thu04/23/22 at 0900, Until Discontinu ed [facility] spironolact one (ALDACTONE) tablet 50 mg 04-23 14:00: 00 Yes 50mg 50 mg, Oral, DAILY, First dose on Thu04/23/22 at 0900, Until Discontinu ed, Routine [facility] aspirin EC tablet 81 mg 04-23 14:00: 00 Yes 81mg 81 mg, Oral, DAILY, First dose on Thu04/23/22 at 0900, Until Discontinu ed, Routine [facility] carved[facility]L (COREG[facility] tablet 25 mg 04-23 13:00: 00 Yes 25mg 25 mg, Oral, BID MEALS, First dose on Thu04/23/22 at 0800, Until Discontinu ed, Routine [facility] tiZANidine 2 mg tablet 04-23 11:56: 44 Yes 2mg Take 2 mg by mouth every 8 (eight) hours as needed. [facility] carvediloL (COREG) 25 mg tablet 04-23 11:56: 44 Yes 25mg Take 25 mg by mouth in the morning and 25 mg in the evening. Take with meals. [facility] atorvastati n (LIPITOR) tablet 80 mg 04-23 02:00: 00 Yes 80mg 80 mg, Oral, QHS, First dose on Thu04/22/22 at 2100, Until Discontinu ed, Routine [facility] gabapentin (NEURONTIN) capsule 100 mg 04-23 01:00: 00 Yes 100mg 100 mg, Oral, TID, First dose on Thu04/22/22 at 2000, Until Discontinu ed, Routine [facility] apixaban (ELIQUIS) tablet 5 mg 04-23 01:00: 00 Yes 1358 5mg 5 mg, Oral, BID, First dose on Thu04/22/22 at 2000, Until Discontinu ed, Routine
Indicatio ns: Non-Valvul ar Atrial Fibrillati on [facility] HYDROcodone -acetaminop hen (NORCO 5) 5-325 mg tablet 1 tablet 04-23 00:16: 33 04-25 00:15 :33 No 1{tbl} 1 tablet, Oral, Q6HPRN, Starting on Thu04/22/22 at 191, Until Thu04/24/22 at 1915, Routine, Pain (scale 4-6) [facility] acetaminoph en (TYLENOL) tablet 650 mg 04-23 00:16: 30 Yes 650mg 650 mg, Oral, Q6HPRN, Starting on Thu04/22/22 at 191, Until Discontinu ed, Routine, Pain (scale 1-3) [facility] HYDROcodone -acetaminop hen (NORCO) 10-325 mg tablet 1 tablet 04-22 17:00: 00 04-22 16:58 :00 No 1{tbl} 1 tablet, Oral, ONCE, 1 dose, On Thu04/22/22 at 1200, Routine [facility] amLODIPine (NORVASC) tablet 10 mg 04-22 16:15: 00 Yes 10mg 10 mg, Oral, DAILY, First dose on Thu04/22/22 at 1115, Until Discontinu ed, Routine [facility] bumetanide (BUMEX) tablet 4 mg 04-22 16:15: 00 Yes 4mg 4 mg, Oral, DAILY, First dose on Thu04/22/22 at 1115, Until Discontinu ed, Routine [facility] carvediloL (COREG) tablet 25 mg 04-22 16:15: 00 04-23 00:09 :57 No 25mg 25 mg, Oral, BID MEALS, First dose on Thu04/22/22 at 1115, Until Discontinu ed, Routine [facility] furosemide (LASIX) injection 40 mg 04-22 15:00: 00 04-22 15:26 :00 No 40mg 40 mg, IV Push, ONCE, 1 dose, On Thu04/22/22 at 1000, MJ [facility] colchicine (COLCRYS) tablet 1.2 mg 04-17 13:30: 00 04-17 12:39 :00 No 1.2mg 1.2 mg, Oral, ONCE, 1 dose, On Thu04/17/22 at 0830, Routine [facility] HYDROcodone -acetaminop hen (NORCO) 10-325 mg tablet 1 tablet 04-17 13:30: 00 04-17 12:39 :00 No 1{tbl} 1 tablet, Oral, ONCE, 1 dose, On Thu04/17/22 at 0830, Routine [facility] tiZANidine 2 mg tablet 04-02 16:18: 41 Yes 2mg Take 2 mg by mouth every 8 (eight) hours as needed. [facility] blood sugar diagnostic strip 03-26 00:00: 00 Yes [id number] Check blood sugar 2 times a day. E11.9. Brand per insurance. [facility] Blood-Gluco se Meter Kit 03-26 00:00: 00 Yes [id number] Check sugars 2 times a day. Dx. Code E11.9 Brand per Insurance [facility] blood sugar diagnostic strip 03-26 00:00: 00 04-13 00:00 :00 No [id number] Check blood sugar 2 times a day. E11.9. Brand per insurance. [facility] Blood-Gluco se Meter Kit 03-26 00:00: 00 04-13 00:00 :00 No [id number] Check sugars 2 times a day. Dx. Code E11.9 Brand per Insurance [facility] semaglutide 3 mg Tab 03-26 00:00: 00 04-26 04:59 :00 No [id number] 3mg Take 3 mg by mouth daily for 30 days. Take > 30 minutes prior to first meal of the day. [facility] amLODIPine 10 mg tablet 18 00:00: 00 04-20 04:59 :00 No [id number] 10mg Take 1 tablet by mouth in the morning for 30 days. [facility] carvediloL 25 mg tablet 805 00:00: 00 04-07 04:59 :00 No [id number] 25mg Take 1 tablet by mouth in the morning and 1 tablet in the evening. Take with meals. [facility] lisinopriL 10 mg tablet 8-05 00:00: 00 04-07 04:59 :00 No [id number] 10mg Take 1 tablet by mouth in the morning and 1 tablet in the evening. Do all this for 30 days. [facility] bumetanide 1 mg tablet 8-04 00:00: 00 08-21 00:00 :00 No [id number] TAKE 4 TABLETS BY MOUTH IN THE MORNING AND 3TABLETS AT NIGHT [facility] Magnesium Oxide 420 mg Tab 03-04 00:00: 00 08-21 00:00 :00 No 400mg Take 400 mg by mouth daily. [facility] spironolact one 25 mg tablet 02-10 00:00: 00 05-15 00:00 :00 No [id number] 50mg Take 2 tablets by mouth in the morning. [facility] aspirin 81 mg EC tablet 02-05 00:00: 00 01-11 00:00 :00 No [id number] 81mg Take 1 tablet by mouth daily. [facility] cholecalcif mika, vitamin D3, 25 mcg (1,000 unit) tablet 02-05 00:00: 00 01-04 00:00 :00 No [id number] 1000U Take 1 tablet by mouth daily. [facility] atorvastati n 80 mg tablet 02-05 00:00: 00 05-01 00:00 :00 No [id number] 80mg Take 1 tablet by mouth at bedtime. [facility] acetaminoph en-codeine 300-30 mg tablet 01-09 00:00: 04-28 00:00 :00 No [id number] 1{tbl} Take 1 tablet by mouth as needed (take daily as needed for severe right knee pain, s/p TKA, heart failure, unable to take NSAIDS). Indication s: chronic pain [facility] acetaminoph en 650 mg CR tablet 01-07 00:00: 00 01-04 00:00 :00 No [id number] 650mg Take 1 tablet by mouth every 8 (eight) hours as needed for Pain or Fever. [facility] Lancets Misc 01-02 00:00: 00 05-05 00:00 :00 No [id number] Check sugars 2 times a day. Dx Code E11.9. Brand per insurance. [facility] blood sugar diagnostic strip 01-02 00:00: 03-26 00:00 :00 No [id number] Check sugars 2 times a day. Dx Code E11.9. Brand per insurance. [facility] Diclofenac Sodium (VOLTAREN) 1 % gel 12-25 00:00: 00 01-04 00:00 :00 No [id number] Apply to area(s) 4 (four) times daily. Apply 4 g qid [facility] gabapentin 100 mg capsule 12-25 00:00: 00 01-04 00:00 :00 No [id number] 100mg Take 1 capsule by mouth 3 (three) times daily. [facility] omeprazole 40 mg capsule 12-19 09:09: 12-19 00:00 :00 No 40mg Take 40 mg by mouth daily. [facility] omeprazole 40 mg capsule 12-19 00:00: 00 05-17 00:00 :00 No [id number] 40mg Take 1 capsule by mouth daily. [facility] carvediloL 12.5 mg tablet 11-21 00:00: 00 12-11 00:00 :00 No [id number] 12.5mg Take 1 tablet by mouth 2 (two) times daily with meals for 30 days. [facility] apixaban 5 mg tablet 11-03 00:00: 00 06-09 00:00 :00 No [id number] 5mg Take 1 tablet by mouth 2 (two) times daily. Indication s: atrial fibrillati on [facility] bumetanide 1 mg tablet 11-03 00:00: 00 12-04 04:59 :00 No [id number] 2mg Take 2 tablets by mouth every morning and evening for 30 days. [facility] HYDROcodone -acetaminop hen 10-325 mg tablet 10-09 00:00: 00 12-06 00:00 :00 No TAKE 1 TABLET BY MOUTH EVERY 12 HOURS NEEDED FOR PAIN/FEVER [facility] glipiZIDE 5 mg tablet 10-06 00:00: 00 12-19 00:00 :00 No TAKE 1 TABLET BY MOUTH 2 (TWO) TIMES DAILY BEFORE BREAKFAST AND DINNER. [facility] furosemide 40 mg tablet 2- 00:00: 00 11-30 00:00 :00 No [facility] lisinopriL 20 mg tablet 2-09 00:00: 00 11-30 00:00 :00 No 20mg Take 20 mg by mouth 2 (two) times daily. [facility] acetaminoph en-codeine 300-30 mg tablet 09-05 00:00: 00 12-12 00:00 :00 No [id number] 1{tbl} Take 1 tablet by mouth as needed (take daily as needed for severe right knee pain, s/p TKA, heart failure, unable to take NSAIDS). Indication s: chronic pain [facility] potassium chloride 20 mEq tablet 1-25 00:00: 00 12-19 00:00 :00 No TAKE 1 TABLET BY MOUTH EVERY DAY FOR 30 DAYS [facility] hydrALAZINE 25 mg tablet -24 00:00: 00 09-05 00:00 :00 No [id number] 25mg Take 1 tablet by mouth 2 (two) times daily for 30 days. [facility] KCL 20 mEq tablet 08-26 00:00: 00 09-05 00:00 :00 No [id number] 20meq Take 1 tablet by mouth daily for 30 days. [facility] carvediloL 25 mg tablet 1-24 00:00: 00 09-05 00:00 :00 No [id number] 50mg Take 2 tablets by mouth 2 (two) times daily with meals for 30 days. [facility] bumetanide 1 mg tablet 1-24 00:00: 00 09-01 00:00 :00 No [id number] 1mg Take 1 tablet by mouth every morning and evening for 30 days. [facility] acetaminoph en 325 mg tablet 08-09 00:00: 00 09-09 05:59 :00 No [id number] 650mg Take 2 tablets by mouth every 6 (six) hours as needed for Pain (scale 1-3) or Temp > 38.5 C for up to 30 days. [facility] cholecalcif mika, vitamin D3, 25 mcg (1,000 unit) tablet 2020-08 2- 00:00: 00 02-05 00:00 :00 No [id number] 1000U Take 1 tablet by mouth daily. [facility] atorvastati n 80 mg tablet 2020-08 00:00: 00 02-05 00:00 :00 No [id number] 80mg Take 1 tablet by mouth at bedtime. [facility] clopidogreL 75 mg tablet 2020-08 00:00: 00 11-03 00:00 :00 No [id number] 75mg Take 1 tablet by mouth daily. [facility] aspirin 81 mg EC tablet 08 00:00: 00 02-05 00:00 :00 No [id number] 81mg Take 1 tablet by mouth daily. [facility] nitroglycer in 0.4 mg sublingual tablet 28 00:00: 00 02-05 00:00 :[id number] 1 tablet under the tongue every 5 (five) minutes as needed for Chest pain. [facility] Immunizations Ordered Immunization Name Filled Immunization Name Date Status Comments Source SARS-COV-2 COVID-19 PFIZER VACCINE 2021-08-02 00:00:[address] [facility] SARS-COV-2 COVID-19 PFIZER VACCINE 2021-08-02 00:00:[address] [facility] SARS-COV-2 COVID-19 PFIZER VACCINE 2021-08-02 00:00:[address] [facility] SARS-COV-2 COVID-19 PFIZER VACCINE 2021-08-02 00:00:[address] [facility] SARS-COV-2 COVID-19 PFIZER VACCINE 2021-08-02 00:00:[address] [facility] SARS-COV-2 COVID-19 PFIZER VACCINE 2021-08-02 00:00:[address] [facility] SARS-COV-2 COVID-19 PFIZER VACCINE 2021-08-02 00:00:[address] [facility] SARS-COV-2 COVID-19 PFIZER VACCINE 2021-08-02 00:00:[address] [facility] SARS-COV-2 COVID-19 PFIZER VACCINE 2021-08-02 00:00:[address] [facility] SARS-COV-2 COVID-19 PFIZER VACCINE 2021-08-02 00:00:[address] [facility] SARS-COV-2 COVID-19 PFIZER VACCINE 2021-08-02 00:00:[address] [facility] SARS-COV-2 COVID-19 PFIZER VACCINE 2021-08-02 00:00:[address] [facility] SARS-COV-2 COVID-19 PFIZER VACCINE 2021-08-02 00:00:[address] [facility] SARS-COV-2 COVID-19 PFIZER VACCINE 2021-08-02 00:00:[address] [facility] SARS-COV-2 COVID-19 PFIZER VACCINE 2021-08-02 00:00:[address] [facility] SARS-COV-2 COVID-19 PFIZER VACCINE 2021-08-02 00:00:[address] [facility] SARS-COV-2 COVID-19 PFIZER VACCINE 2021-08-02 00:00:[address] [facility] SARS-COV-2 COVID-19 PFIZER VACCINE 2021-08-02 00:00:[address] [facility] SARS-COV-2 COVID-19 PFIZER VACCINE 2021-08-02 00:00:[address] [facility] SARS-COV-2 COVID-19 PFIZER VACCINE 2021-08-02 00:00:[address] [facility] SARS-COV-2 COVID-19 PFIZER VACCINE 2021-08-02 00:00:[address] [facility] SARS-COV-2 COVID-19 PFIZER VACCINE 2021-08-02 00:00:[address] [facility] SARS-COV-2 COVID-19 PFIZER VACCINE 2021-08-02 00:00:[address] [facility] SARS-COV-2 COVID-19 PFIZER VACCINE 2021-08-02 00:00:[address] [facility] SARS-COV-2 COVID-19 PFIZER VACCINE 2021-08-02 00:00:[address] [facility] SARS-COV-2 COVID-19 PFIZER VACCINE 2021-08-02 00:00:[address] [facility] SARS-COV-2 COVID-19 PFIZER VACCINE 2021-08-02 00:00:[address] [facility] SARS-COV-2 COVID-19 PFIZER VACCINE 2021-08-02 00:00:[address] [facility] SARS-COV-2 COVID-19 PFIZER VACCINE 2021-08-02 00:00:[address] [facility] SARS-COV-2 COVID-19 PFIZER VACCINE 2021-08-02 00:00:[address] [facility] SARS-COV-2 COVID-19 PFIZER VACCINE 2021-08-02 00:00:[address] [facility] SARS-COV-2 COVID-19 PFIZER VACCINE 2021-08-02 00:00:[address] [facility] SARS-COV-2 COVID-19 PFIZER VACCINE 2021-08-02 00:00:[address] [facility] SARS-COV-2 COVID-19 PFIZER VACCINE 2021-08-02 00:00:[address] [facility] SARS-COV-2 COVID-19 PFIZER VACCINE 2021-08-02 00:00:[address] [facility] SARS-COV-2 COVID-19 PFIZER VACCINE 2021-08-02 00:00:[address] [facility] SARS-COV-2 COVID-19 PFIZER VACCINE 2021-08-02 00:00:[address] [facility] SARS-COV-2 COVID-19 PFIZER VACCINE 2021-08-02 00:00:[address] [facility] SARS-COV-2 COVID-19 PFIZER VACCINE 2021-08-02 00:00:[address] [facility] SARS-COV-2 COVID-19 PFIZER VACCINE 2021-08-02 00:00:[address] [facility] SARS-COV-2 COVID-19 PFIZER VACCINE 2021-08-02 00:00:[address] [facility] SARS-COV-2 COVID-19 PFIZER VACCINE 2021-08-02 00:00:[address] [facility] SARS-COV-2 COVID-19 PFIZER VACCINE 2021-08-02 00:00:[address] [facility] SARS-COV-2 COVID-19 PFIZER VACCINE 2021-08-02 00:00:[address] [facility] SARS-COV-2 COVID-19 PFIZER VACCINE 2021-08-02 00:00:[address] [facility] SARS-COV-2 COVID-19 PFIZER VACCINE 2021-08-02 00:00:[address] [facility] SARS-COV-2 COVID-19 PFIZER VACCINE 2021-08-02 00:00:[address] [facility] SARS-COV-2 COVID-19 PFIZER VACCINE 2021-08-02 00:00:[address] [facility] SARS-COV-2 COVID-19 PFIZER VACCINE 2021-08-02 00:00:[address] [facility] SARS-COV-2 COVID-19 PFIZER VACCINE 2021-08-02 00:00:[address] [facility] SARS-COV-2 COVID-19 PFIZER VACCINE 2021-08-02 00:00:[address] [facility] SARS-COV-2 COVID-19 PFIZER VACCINE 2021-08-02 00:00:[address] [facility] SARS-COV-2 COVID-19 PFIZER VACCINE 2021-08-02 00:00:[address] [facility] SARS-COV-2 COVID-19 PFIZER VACCINE 2021-08-02 00:00:[address] [facility] SARS-COV-2 COVID-19 PFIZER VACCINE 2021-08-02 00:00:[address] [facility] SARS-COV-2 COVID-19 PFIZER VACCINE 2021-08-02 00:00:[address] [facility] SARS-COV-2 COVID-19 PFIZER VACCINE 2021-08-02 00:00:[address] [facility] SARS-COV-2 COVID-19 PFIZER VACCINE 2021-08-02 00:00:[address] [facility] SARS-COV-2 COVID-19 PFIZER VACCINE 2021-08-02 00:00:[address] [facility] SARS-COV-2 COVID-19 PFIZER VACCINE 2021-08-02 00:00:[address] [facility] SARS-COV-2 COVID-19 PFIZER VACCINE 2021-08-02 00:00:[address] [facility] SARS-COV-2 COVID-19 PFIZER VACCINE 2021-08-02 00:00:[address] [facility] Influenza Virus Vaccine Quad .5 mL IM 6+ MO 2020-09-24 00:00:[address] [facility] Influenza Virus Vaccine Quad .5 mL IM 6+ MO 2020-09-24 00:00:[address] [facility] Influenza Virus Vaccine Quad .5 mL IM 6+ MO 2020-09-24 00:00:[address] [facility] Influenza Virus Vaccine Quad .5 mL IM 6+ MO 2020-09-24 00:00:[address] [facility] Influenza Virus Vaccine Quad .5 mL IM 6+ MO 2020-09-24 00:00:[address] [facility] Influenza Virus Vaccine Quad .5 mL IM 6+ MO 2020-09-24 00:00:[address] [facility] Influenza Virus Vaccine Quad .5 mL IM 6+ MO 2020-09-24 00:00:[address] [facility] Influenza Virus Vaccine Quad .5 mL IM 6+ MO 2020-09-24 00:00:[address] [facility] Influenza Virus Vaccine Quad .5 mL IM 6+ MO 2020-09-24 00:00:[address] [facility] Influenza Virus Vaccine Quad .5 mL IM 6+ MO 2020-09-24 00:00:[address] [facility] Influenza Virus Vaccine Quad .5 mL IM 6+ MO 2020-09-24 00:00:[address] [facility] Influenza Virus Vaccine Quad .5 mL IM 6+ MO 2020-09-24 00:00:[address] [facility] Influenza Virus Vaccine Quad .5 mL IM 6+ MO 2020-09-24 00:00:[address] [facility] Influenza Virus Vaccine Quad .5 mL IM 6+ MO 2020-09-24 00:00:[address] [facility] Influenza Virus Vaccine Quad .5 mL IM 6+ MO 2020-09-24 00:00:[address] [facility] Influenza Virus Vaccine Quad .5 mL IM 6+ MO 2020-09-24 00:00:[address] [facility] Influenza Virus Vaccine Quad .5 mL IM 6+ MO 2020-09-24 00:00:[address] [facility] Influenza Virus Vaccine Quad .5 mL IM 6+ MO 2020-09-24 00:00:[address] [facility] Influenza Virus Vaccine Quad .5 mL IM 6+ MO 2020-09-24 00:00:[address] [facility] Influenza Virus Vaccine Quad .5 mL IM 6+ MO 2020-09-24 00:00:[address] [facility] Influenza Virus Vaccine Quad .5 mL IM 6+ MO 2020-09-24 00:00:[address] [facility] Influenza Virus Vaccine Quad .5 mL IM 6+ MO 2020-09-24 00:00:[address] [facility] Influenza Virus Vaccine Quad .5 mL IM 6+ MO 2020-09-24 00:00:[address] [facility] Influenza Virus Vaccine Quad .5 mL IM 6+ MO 2020-09-24 00:00:[address] [facility] Influenza Virus Vaccine Quad .5 mL IM 6+ MO 2020-09-24 00:00:[address] [facility] Influenza Virus Vaccine Quad .5 mL IM 6+ MO 2020-09-24 00:00:[address] [facility] Influenza Virus Vaccine Quad .5 mL IM 6+ MO 2020-09-24 00:00:[address] [facility] Influenza Virus Vaccine Quad .5 mL IM 6+ MO 2020-09-24 00:00:[address] [facility] Influenza Virus Vaccine Quad .5 mL IM 6+ MO 2020-09-24 00:00:[address] [facility] Influenza Virus Vaccine Quad .5 mL IM 6+ MO 2020-09-24 00:00:[address] [facility] Influenza Virus Vaccine Quad .5 mL IM 6+ MO 2020-09-24 00:00:[address] [facility] Influenza Virus Vaccine Quad .5 mL IM 6+ MO 2020-09-24 00:00:[address] [facility] Influenza Virus Vaccine Quad .5 mL IM 6+ MO 2020-09-24 00:00:00 Completed [facility] Influenza Virus Vaccine Quad .5 mL IM 6+ MO 2020-09-24 00:00:[address] [facility] Influenza Virus Vaccine Quad .5 mL IM 6+ MO 2020-09-24 00:00:[address] [facility] Influenza Virus Vaccine Quad .5 mL IM 6+ MO 2020-09-24 00:00:[address] [facility] Influenza Virus Vaccine Quad .5 mL IM 6+ MO 2020-09-24 00:00:[address] [facility] Influenza Virus Vaccine Quad .5 mL IM 6+ MO 2020-09-24 00:00:[address] [facility] Influenza Virus Vaccine Quad .5 mL IM 6+ MO 2020-09-24 00:00:[address] [facility] Influenza Virus Vaccine Quad .5 mL IM 6+ MO 2020-09-24 00:00:[address] [facility] Influenza Virus Vaccine Quad .5 mL IM 6+ MO 2020-09-24 00:00:[address] [facility] Influenza Virus Vaccine Quad .5 mL IM 6+ MO 2020-09-24 00:00:[address] [facility] Influenza Virus Vaccine Quad .5 mL IM 6+ MO 2020-09-24 00:00:[address] [facility] Influenza Virus Vaccine Quad .5 mL IM 6+ MO 2020-09-24 00:00:[address] [facility] Influenza Virus Vaccine Quad .5 mL IM 6+ MO 2020-09-24 00:00:[address] [facility] Influenza Virus Vaccine Quad .5 mL IM 6+ MO 2020-09-24 00:00:[address] [facility] Influenza Virus Vaccine Quad .5 mL IM 6+ MO 2020-09-24 00:00:[address] [facility] Influenza Virus Vaccine Quad .5 mL IM 6+ MO 2020-09-24 00:00:[address] [facility] Influenza Virus Vaccine Quad .5 mL IM 6+ MO 2020-09-24 00:00:[address] [facility] Influenza Virus Vaccine Quad .5 mL IM 6+ MO 2020-09-24 00:00:[address] [facility] Influenza Virus Vaccine Quad .5 mL IM 6+ MO 2020-09-24 00:00:[address] [facility] Influenza Virus Vaccine Quad .5 mL IM 6+ MO 2020-09-24 00:00:[address] [facility] Influenza Virus Vaccine Quad .5 mL IM 6+ MO 2020-09-24 00:00:[address] [facility] Influenza Virus Vaccine Quad .5 mL IM 6+ MO 2020-09-24 00:00:[address] [facility] Influenza Virus Vaccine Quad .5 mL IM 6+ MO 2020-09-24 00:00:[address] [facility] Influenza Virus Vaccine Quad .5 mL IM 6+ MO 2020-09-24 00:00:[address] [facility] Influenza Virus Vaccine Quad .5 mL IM 6+ MO 2020-09-24 00:00:[address] [facility] Influenza Virus Vaccine Quad .5 mL IM 6+ MO (FLUZONE/FLULAVAL/F LUARIX) 2020-09-24 00:00:[address] [facility] Influenza Virus Vaccine Quad .5 mL IM 6+ MO (FLUZONE/FLULAVAL/F LUARIX) 2020-09-24 00:00:[address] [facility] Influenza Virus Vaccine Quad .5 mL IM 6+ MO (FLUZONE/FLULAVAL/F LUARIX) 2020-09-24 00:00:[address] [facility] Influenza Virus Vaccine Quad .5 mL IM 6+ MO (FLUZONE/FLULAVAL/F LUARIX) 2020-09-24 00:00:[address] [facility] Influenza Virus Vaccine Quad .5 mL IM 6+ MO (FLUZONE/FLULAVAL/F LUARIX) 2020-09-24 00:00:[address] [facility] Influenza Virus Vaccine Quad .5 mL IM 6+ MO 2020-05-03 00:00:[address] [facility] Influenza Virus Vaccine Quad .5 mL IM 6+ MO 2020-05-03 00:00:[address] [facility] Influenza Virus Vaccine Quad .5 mL IM 6+ MO 2020-05-03 00:00:[address] [facility] Influenza Virus Vaccine Quad .5 mL IM 6+ MO 2020-05-03 00:00:[address] [facility] Influenza Virus Vaccine Quad .5 mL IM 6+ MO 2020-05-03 00:00:[address] [facility] Influenza Virus Vaccine Quad .5 mL IM 6+ MO 2020-05-03 00:00:[address] [facility] Influenza Virus Vaccine Quad .5 mL IM 6+ MO 2020-05-03 00:00:[address] [facility] Influenza Virus Vaccine Quad .5 mL IM 6+ MO 2020-05-03 00:00:[address] [facility] Influenza Virus Vaccine Quad .5 mL IM 6+ MO 2020-05-03 00:00:[address] [facility] Influenza Virus Vaccine Quad .5 mL IM 6+ MO 2020-05-03 00:00:[address] [facility] Influenza Virus Vaccine Quad .5 mL IM 6+ MO 2020-05-03 00:00:[address] [facility] Influenza Virus Vaccine Quad .5 mL IM 6+ MO 2020-05-03 00:00:[address] [facility] Influenza Virus Vaccine Quad .5 mL IM 6+ MO 2020-05-03 00:00:[address] [facility] Influenza Virus Vaccine Quad .5 mL IM 6+ MO 2020-05-03 00:00:[address] [facility] Influenza Virus Vaccine Quad .5 mL IM 6+ MO 2020-05-03 00:00:[address] [facility] Influenza Virus Vaccine Quad .5 mL IM 6+ MO 2020-05-03 00:00:[address] [facility] Influenza Virus Vaccine Quad .5 mL IM 6+ MO 2020-05-03 00:00:[address] [facility] Influenza Virus Vaccine Quad .5 mL IM 6+ MO 2020-05-03 00:00:[address] [facility] Influenza Virus Vaccine Quad .5 mL IM 6+ MO 2020-05-03 00:00:[address] [facility] Influenza Virus Vaccine Quad .5 mL IM 6+ MO 2020-05-03 00:00:[address] [facility] Influenza Virus Vaccine Quad .5 mL IM 6+ MO 2020-05-03 00:00:[address] [facility] Influenza Virus Vaccine Quad .5 mL IM 6+ MO 2020-05-03 00:00:[address] [facility] Influenza Virus Vaccine Quad .5 mL IM 6+ MO 2020-05-03 00:00:[address] [facility] Influenza Virus Vaccine Quad .5 mL IM 6+ MO 2020-05-03 00:00:[address] [facility] Influenza Virus Vaccine Quad .5 mL IM 6+ MO 2020-05-03 00:00:[address] [facility] Influenza Virus Vaccine Quad .5 mL IM 6+ MO 2020-05-03 00:00:[address] [facility] Influenza Virus Vaccine Quad .5 mL IM 6+ MO 2020-05-03 00:00:[address] [facility] Influenza Virus Vaccine Quad .5 mL IM 6+ MO 2020-05-03 00:00:[address] [facility] Influenza Virus Vaccine Quad .5 mL IM 6+ MO 2020-05-03 00:00:[address] [facility] Influenza Virus Vaccine Quad .5 mL IM 6+ MO 2020-05-03 00:00:[address] [facility] Influenza Virus Vaccine Quad .5 mL IM 6+ MO 2020-05-03 00:00:[address] [facility] Influenza Virus Vaccine Quad .5 mL IM 6+ MO 2020-05-03 00:00:[address] [facility] Influenza Virus Vaccine Quad .5 mL IM 6+ MO 2020-05-03 00:00:[address] [facility] Influenza Virus Vaccine Quad .5 mL IM 6+ MO 2020-05-03 00:00:[address] [facility] Influenza Virus Vaccine Quad .5 mL IM 6+ MO 2020-05-03 00:00:[address] [facility] Influenza Virus Vaccine Quad .5 mL IM 6+ MO 2020-05-03 00:00:[address] [facility] Influenza Virus Vaccine Quad .5 mL IM 6+ MO 2020-05-03 00:00:[address] [facility] Influenza Virus Vaccine Quad .5 mL IM 6+ MO 2020-05-03 00:00:[address] [facility] Influenza Virus Vaccine Quad .5 mL IM 6+ MO 2020-05-03 00:00:[address] [facility] Influenza Virus Vaccine Quad .5 mL IM 6+ MO 2020-05-03 00:00:[address] [facility] Influenza Virus Vaccine Quad .5 mL IM 6+ MO 2020-05-03 00:00:[address] [facility] Influenza Virus Vaccine Quad .5 mL IM 6+ MO 2020-05-03 00:00:[address] [facility] Influenza Virus Vaccine Quad .5 mL IM 6+ MO 2020-05-03 00:00:[address] [facility] Influenza Virus Vaccine Quad .5 mL IM 6+ MO 2020-05-03 00:00:[address] [facility] Influenza Virus Vaccine Quad .5 mL IM 6+ MO 2020-05-03 00:00:[address] [facility] Influenza Virus Vaccine Quad .5 mL IM 6+ MO 2020-05-03 00:00:[address] [facility] Influenza Virus Vaccine Quad .5 mL IM 6+ MO 2020-05-03 00:00:[address] [facility] Influenza Virus Vaccine Quad .5 mL IM 6+ MO 2020-05-03 00:00:[address] [facility] Influenza Virus Vaccine Quad .5 mL IM 6+ MO 2020-05-03 00:00:[address] [facility] Influenza Virus Vaccine Quad .5 mL IM 6+ MO 2020-05-03 00:00:[address] [facility] Influenza Virus Vaccine Quad .5 mL IM 6+ MO 2020-05-03 00:00:[address] [facility] Influenza Virus Vaccine Quad .5 mL IM 6+ MO 2020-05-03 00:00:[address] [facility] Influenza Virus Vaccine Quad .5 mL IM 6+ MO 2020-05-03 00:00:[address] [facility] Influenza Virus Vaccine Quad .5 mL IM 6+ MO 2020-05-03 00:00:[address] [facility] Influenza Virus Vaccine Quad .5 mL IM 6+ MO 2020-05-03 00:00:[address] [facility] Influenza Virus Vaccine Quad .5 mL IM 6+ MO 2020-05-03 00:00:[address] [facility] Influenza Virus Vaccine Quad .5 mL IM 6+ MO 2020-05-03 00:00:[address] [facility] Influenza Virus Vaccine Quad .5 mL IM 6+ MO (FLUZONE/FLULAVAL/F LUARIX) 2020-05-03 00:00:[address] [facility] Influenza Virus Vaccine Quad .5 mL IM 6+ MO (FLUZONE/FLULAVAL/F LUARIX) 2020-05-03 00:00:[address] [facility] Influenza Virus Vaccine Quad .5 mL IM 6+ MO (FLUZONE/FLULAVAL/F LUARIX) 2020-05-03 00:00:00 Completed Influenza Virus Vaccine Quad .5 mL IM 6+ MO (FLUZONE/FLULAVAL/F LUARIX) 2020-05-03 00:00:00 Completed Influenza Virus Vaccine Quad .5 mL IM 6+ MO (FLUZONE/FLULAVAL/F LUARIX) 2020-05-03 00:00:00 Completed Influenza Virus Vaccine Quad .5 mL IM 6+ MO 2019-06-14 00:00:[address] [facility] Influenza Virus Vaccine Quad .5 mL IM 6+ MO 2019-06-14 00:00:[address] [facility] Influenza Virus Vaccine Quad .5 mL IM 6+ MO 2019-06-14 00:00:[address] [facility] Influenza Virus Vaccine Quad .5 mL IM 6+ MO 2019-06-14 00:00:[address] [facility] Influenza Virus Vaccine Quad .5 mL IM 6+ MO 2019-06-14 00:00:[address] [facility] Influenza Virus Vaccine Quad .5 mL IM 6+ MO 2019-06-14 00:00:[address] [facility] Influenza Virus Vaccine Quad .5 mL IM 6+ MO 2019-06-14 00:00:[address] [facility] Influenza Virus Vaccine Quad .5 mL IM 6+ MO 2019-06-14 00:00:[address] [facility] Influenza Virus Vaccine Quad .5 mL IM 6+ MO 2019-06-14 00:00:[address] [facility] Influenza Virus Vaccine Quad .5 mL IM 6+ MO 2019-06-14 00:00:[address] [facility] Influenza Virus Vaccine Quad .5 mL IM 6+ MO 2019-06-14 00:00:[address] [facility] Influenza Virus Vaccine Quad .5 mL IM 6+ MO 2019-06-14 00:00:[address] [facility] Influenza Virus Vaccine Quad .5 mL IM 6+ MO 2019-06-14 00:00:[address] [facility] Influenza Virus Vaccine Quad .5 mL IM 6+ MO 2019-06-14 00:00:[address] [facility] Influenza Virus Vaccine Quad .5 mL IM 6+ MO 2019-06-14 00:00:[address] [facility] Influenza Virus Vaccine Quad .5 mL IM 6+ MO 2019-06-14 00:00:[address] [facility] Influenza Virus Vaccine Quad .5 mL IM 6+ MO 2019-06-14 00:00:[address] [facility] Influenza Virus Vaccine Quad .5 mL IM 6+ MO 2019-06-14 00:00:[address] [facility] Influenza Virus Vaccine Quad .5 mL IM 6+ MO 2019-06-14 00:00:[address] [facility] Influenza Virus Vaccine Quad .5 mL IM 6+ MO 2019-06-14 00:00:[address] [facility] Influenza Virus Vaccine Quad .5 mL IM 6+ MO 2019-06-14 00:00:[address] [facility] Influenza Virus Vaccine Quad .5 mL IM 6+ MO 2019-06-14 00:00:[address] [facility] Influenza Virus Vaccine Quad .5 mL IM 6+ MO 2019-06-14 00:00:[address] [facility] Influenza Virus Vaccine Quad .5 mL IM 6+ MO 2019-06-14 00:00:[address] [facility] Influenza Virus Vaccine Quad .5 mL IM 6+ MO 2019-06-14 00:00:[address] [facility] Influenza Virus Vaccine Quad .5 mL IM 6+ MO 2019-06-14 00:00:[address] [facility] Influenza Virus Vaccine Quad .5 mL IM 6+ MO 2019-06-14 00:00:[address] [facility] Influenza Virus Vaccine Quad .5 mL IM 6+ MO 2019-06-14 00:00:[address] [facility] Influenza Virus Vaccine Quad .5 mL IM 6+ MO 2019-06-14 00:00:[address] [facility] Influenza Virus Vaccine Quad .5 mL IM 6+ MO 2019-06-14 00:00:[address] [facility] Influenza Virus Vaccine Quad .5 mL IM 6+ MO 2019-06-14 00:00:[address] [facility] Influenza Virus Vaccine Quad .5 mL IM 6+ MO 2019-06-14 00:00:[address] [facility] Influenza Virus Vaccine Quad .5 mL IM 6+ MO 2019-06-14 00:00:[address] [facility] Influenza Virus Vaccine Quad .5 mL IM 6+ MO 2019-06-14 00:00:[address] [facility] Influenza Virus Vaccine Quad .5 mL IM 6+ MO 2019-06-14 00:00:[address] [facility] Influenza Virus Vaccine Quad .5 mL IM 6+ MO 2019-06-14 00:00:[address] [facility] Influenza Virus Vaccine Quad .5 mL IM 6+ MO 2019-06-14 00:00:[address] [facility] Influenza Virus Vaccine Quad .5 mL IM 6+ MO 2019-06-14 00:00:[address] [facility] Influenza Virus Vaccine Quad .5 mL IM 6+ MO 2019-06-14 00:00:[address] [facility] Influenza Virus Vaccine Quad .5 mL IM 6+ MO 2019-06-14 00:00:[address] [facility] Influenza Virus Vaccine Quad .5 mL IM 6+ MO 2019-06-14 00:00:[address] [facility] Influenza Virus Vaccine Quad .5 mL IM 6+ MO 2019-06-14 00:00:[address] [facility] Influenza Virus Vaccine Quad .5 mL IM 6+ MO 2019-06-14 00:00:[address] [facility] Influenza Virus Vaccine Quad .5 mL IM 6+ MO 2019-06-14 00:00:[address] [facility] Influenza Virus Vaccine Quad .5 mL IM 6+ MO 2019-06-14 00:00:[address] [facility] Influenza Virus Vaccine Quad .5 mL IM 6+ MO 2019-06-14 00:00:[address] [facility] Influenza Virus Vaccine Quad .5 mL IM 6+ MO 2019-06-14 00:00:[address] [facility] Influenza Virus Vaccine Quad .5 mL IM 6+ MO 2019-06-14 00:00:[address] [facility] Influenza Virus Vaccine Quad .5 mL IM 6+ MO 2019-06-14 00:00:[address] [facility] Influenza Virus Vaccine Quad .5 mL IM 6+ MO 2019-06-14 00:00:[address] [facility] Influenza Virus Vaccine Quad .5 mL IM 6+ MO 2019-06-14 00:00:[address] [facility] Influenza Virus Vaccine Quad .5 mL IM 6+ MO 2019-06-14 00:00:[address] [facility] Influenza Virus Vaccine Quad .5 mL IM 6+ MO 2019-06-14 00:00:[address] [facility] Influenza Virus Vaccine Quad .5 mL IM 6+ MO 2019-06-14 00:00:[address] [facility] Influenza Virus Vaccine Quad .5 mL IM 6+ MO 2019-06-14 00:00:[address] [facility] Influenza Virus Vaccine Quad .5 mL IM 6+ MO 2019-06-14 00:00:[address] [facility] Influenza Virus Vaccine Quad .5 mL IM 6+ MO 2019-06-14 00:00:[address] [facility] Influenza Virus Vaccine Quad .5 mL IM 6+ MO (FLUZONE/FLULAVAL/F LUARIX) 2019-06-14 00:00:[address] [facility] Influenza Virus Vaccine Quad .5 mL IM 6+ MO (FLUZONE/FLULAVAL/F LUARIX) 2019-06-14 00:00:[address] [facility] Influenza Virus Vaccine Quad .5 mL IM 6+ MO (FLUZONE/FLULAVAL/F LUARIX) 2019-06-14 00:00:[address] [facility] Influenza Virus Vaccine Quad .5 mL IM 6+ MO (FLUZONE/FLULAVAL/F LUARIX) 2019-06-14 00:00:[address] [facility] Influenza Virus Vaccine Quad .5 mL IM 6+ MO (FLUZONE/FLULAVAL/F LUARIX) 2019-06-14 00:00:[address] [facility] Influenza Virus Vaccine Quad IM 3+ YRS 2018-07-07 00:00:[address] [facility] Influenza Virus Vaccine Quad IM 3+ YRS 2018-07-07 00:00:[address] [facility] Influenza Virus Vaccine Quad IM 3+ YRS 2018-07-07 00:00:[address] [facility] Influenza Virus Vaccine Quad IM 3+ YRS 2018-07-07 00:00:[address] [facility] Influenza Virus Vaccine Quad IM 3+ YRS 2018-07-07 00:00:[address] [facility] Influenza Virus Vaccine Quad IM 3+ YRS 2018-07-07 00:00:[address] [facility] Influenza Virus Vaccine Quad IM 3+ YRS 2018-07-07 00:00:00 Completed [facility] Influenza Virus Vaccine Quad IM 3+ YRS 2018-07-07 00:00:00 Completed [facility] Influenza Virus Vaccine Quad IM 3+ YRS 2018-07-07 00:00:00 Completed [facility] Influenza Virus Vaccine Quad IM 3+ YRS 2018-07-07 00:00:[address] [facility] Influenza Virus Vaccine Quad IM 3+ YRS 2018-07-07 00:00:[address] [facility] Influenza Virus Vaccine Quad IM 3+ YRS 2018-07-07 00:00:[address] [facility] Influenza Virus Vaccine Quad IM 3+ YRS 2018-07-07 00:00:[address] [facility] Influenza Virus Vaccine Quad IM 3+ YRS 2018-07-07 00:00:[address] [facility] Influenza Virus Vaccine Quad IM 3+ YRS 2018-07-07 00:00:[address] [facility] Influenza Virus Vaccine Quad IM 3+ YRS 2018-07-07 00:00:[address] [facility] Influenza Virus Vaccine Quad IM 3+ YRS 2018-07-07 00:00:[address] [facility] Influenza Virus Vaccine Quad IM 3+ YRS 2018-07-07 00:00:[address] [facility] Influenza Virus Vaccine Quad IM 3+ YRS 2018-07-07 00:00:00 Completed [facility] Influenza Virus Vaccine Quad IM 3+ YRS 2018-07-07 00:00:[address] [facility] Influenza Virus Vaccine Quad IM 3+ YRS 2018-07-07 00:00:[address] [facility] Influenza Virus Vaccine Quad IM 3+ YRS 2018-07-07 00:00:[address] [facility] Influenza Virus Vaccine Quad IM 3+ YRS 2018-07-07 00:00:00 Completed [facility] Influenza Virus Vaccine Quad IM 3+ YRS 2018-07-07 00:00:00 Completed [facility] Influenza Virus Vaccine Quad IM 3+ YRS 2018-07-07 00:00:00 Completed [facility] Influenza Virus Vaccine Quad IM 3+ YRS 2018-07-07 00:00:[address] [facility] Influenza Virus Vaccine Quad IM 3+ YRS 2018-07-07 00:00:00 Completed [facility] Influenza Virus Vaccine Quad IM 3+ YRS 2018-07-07 00:00:00 Completed [facility] Influenza Virus Vaccine Quad IM 3+ YRS 2018-07-07 00:00:00 Completed [facility] Influenza Virus Vaccine Quad IM 3+ YRS 2018-07-07 00:00:[address] [facility] Influenza Virus Vaccine Quad IM 3+ YRS 2018-07-07 00:00:[address] [facility] Influenza Virus Vaccine Quad IM 3+ YRS 2018-07-07 00:00:[address] [facility] Influenza Virus Vaccine Quad IM 3+ YRS 2018-07-07 00:00:[address] [facility] Influenza Virus Vaccine Quad IM 3+ YRS 2018-07-07 00:00:[address] [facility] Influenza Virus Vaccine Quad IM 3+ 2018-07-07 00:00:[address] [facility] Influenza Virus Vaccine Quad IM 3+ 2018-07-07 00:00:[address] [facility] Influenza Virus Vaccine Quad IM 3+ 2018-07-07 00:00:[address] [facility] Influenza Virus Vaccine Quad IM 3+ 2018-07-07 00:00:[address] [facility] Influenza Virus Vaccine Quad IM 3+ 2018-07-07 00:00:[address] [facility] Influenza Virus Vaccine Quad IM 3+ 2018-07-07 00:00:[address] [facility] Influenza Virus Vaccine Quad IM 3+ 2018-07-07 00:00:[address] [facility] Influenza Virus Vaccine Quad IM 3+ 2018-07-07 00:00:[address] [facility] Influenza Virus Vaccine Quad IM 3+ 2018-07-07 00:00:[address] [facility] Influenza Virus Vaccine Quad IM 3+ 2018-07-07 00:00:[address] [facility] Influenza Virus Vaccine Quad IM 3+ 2018-07-07 00:00:[address] [facility] Influenza Virus Vaccine Quad IM 3+ 2018-07-07 00:00:[address] [facility] Influenza Virus Vaccine Quad IM 3+ YRS 2018-07-07 00:00:[address] [facility] Influenza Virus Vaccine Quad IM 3+ 2018-07-07 00:00:[address] [facility] Influenza Virus Vaccine Quad IM 3+ YRS 2018-07-07 00:00:[address] [facility] Influenza Virus Vaccine Quad IM 3+ YRS 2018-07-07 00:00:[address] [facility] Influenza Virus Vaccine Quad IM 3+ YRS 2018-07-07 00:00:[address] [facility] Influenza Virus Vaccine Quad IM 3+ YRS 2018-07-07 00:00:[address] [facility] Influenza Virus Vaccine Quad IM 3+ YRS 2018-07-07 00:00:[address] [facility] Influenza Virus Vaccine Quad IM 3+ YRS 2018-07-07 00:00:[address] [facility] Influenza Virus Vaccine Quad IM 3+ YRS 2018-07-07 00:00:[address] [facility] Influenza Virus Vaccine Quad IM 3+ YRS 2018-07-07 00:00:[address] [facility] Influenza Virus Vaccine Quad IM 3+ YRS 2018-07-07 00:00:[address] [facility] Influenza Virus Vaccine Quad IM 3+ YRS 2018-07-07 00:00:[address] [facility] Influenza Virus Vaccine Quad IM 3+ YRS 2018-07-07 00:00:[address] [facility] Influenza Virus Vaccine Quad IM 3+ YRS 2018-07-07 00:00:[address] [facility] Influenza Virus Vaccine Quad IM 3+ YRS 2018-07-07 00:00:[address] [facility] Influenza Virus Vaccine Quad IM 3+ YRS 2018-07-07 00:00:[address] [facility] Td 2017-08-01 00:00:[address] [facility] Td 2017-08-01 00:00:[address] [facility] Td 2017-08-01 00:00:[address] [facility] Td 2017-08-01 00:00:[address] [facility] Td 2017-08-01 00:00:[address] [facility] Td 2017-08-01 00:00:[address] [facility] Td 2017-08-01 00:00:[address] [facility] Td 2017-08-01 00:00:[address] [facility] Td 2017-08-01 00:00:[address] [facility] Td 2017-08-01 00:00:00 Completed [facility] Td 2017-08-01 00:00:00 Completed [facility] Td 2017-08-01 00:00:00 Completed [facility] Td 2017-08-01 00:00:00 Completed [facility] Td 2017-08-01 00:00:00 Completed [facility] Td 2017-08-01 00:00:00 Completed [facility] Td 2017-08-01 00:00:00 Completed [facility] Td 2017-08-01 00:00:00 Completed [facility] Td 2017-08-01 00:00:00 Completed [facility] Td 2017-08-01 00:00:00 Completed [facility] Td 2017-08-01 00:00:00 Completed [facility] Td 2017-08-01 00:00:00 Completed [facility] Td 2017-08-01 00:00:00 Completed [facility] Td 2017-08-01 00:00:00 Completed [facility] Td 2017-08-01 00:00:00 Completed [facility] Td 2017-08-01 00:00:00 Completed [facility] Td 2017-08-01 00:00:00 Completed [facility] Td 2017-08-01 00:00:00 Completed [facility] Td 2017-08-01 00:00:00 Completed [facility] Td 2017-08-01 00:00:00 Completed [facility] Td 2017-08-01 00:00:00 Completed [facility] Td 2017-08-01 00:00:00 Completed [facility] Td 2017-08-01 00:00:00 Completed [facility] Td 2017-08-01 00:00:00 Completed [facility] Td 2017-08-01 00:00:00 Completed [facility] Td 2017-08-01 00:00:00 Completed [facility] Td 2017-08-01 00:00:00 Completed [facility] Td 2017-08-01 00:00:00 Completed [facility] Td 2017-08-01 00:00:00 Completed [facility] Td 2017-08-01 00:00:[address] [facility] Td 2017-08-01 00:00:[address] [facility] Td 2017-08-01 00:00:[address] [facility] TD, NOS 2017-08-01 00:00:[address] [facility] TD, NOS 2017-08-01 00:00:[address] [facility] TD, NOS 2017-08-01 00:00:[address] [facility] TD, NOS 2017-08-01 00:00:[address] [facility] TD, NOS 2017-08-01 00:00:[address] [facility] TD, NOS 2017-08-01 00:00:[address] [facility] TD, NOS 2017-08-01 00:00:[address] [facility] TD, NOS 2017-08-01 00:00:[address] [facility] TD, NOS 2017-08-01 00:00:[address] [facility] TD, NOS 2017-08-01 00:00:[address] [facility] TD, NOS 2017-08-01 00:00:[address] [facility] TD, NOS 2017-08-01 00:00:[address] [facility] TD, NOS 2017-08-01 00:00:[address] [facility] TD, NOS 2017-08-01 00:00:[address] [facility] TD, NOS 2017-08-01 00:00:[address] [facility] TD, NOS 2017-08-01 00:00:[address] [facility] TD, NOS 2017-08-01 00:00:[address] [facility] TD, NOS 2017-08-01 00:00:[address] [facility] TD, NOS 2017-08-01 00:00:[address] [facility] TD, NOS 2017-08-01 00:00:[address] [facility] TD, NOS 2017-08-01 00:00:[address] [facility] Influenza Virus Vaccine Quad IM 3+ YRS 2016-05-22 00:00:[address] [facility] Influenza Virus Vaccine Quad IM 3+ YRS 2016-05-22 00:00:[address] [facility] Influenza Virus Vaccine Quad IM 3+ YRS 2016-05-22 00:00:[address] [facility] Influenza Virus Vaccine Quad IM 3+ YRS 2016-05-22 00:00:[address] [facility] Influenza Virus Vaccine Quad IM 3+ YRS 2016-05-22 00:00:[address] [facility] Influenza Virus Vaccine Quad IM 3+ YRS 2016-05-22 00:00:[address] [facility] Influenza Virus Vaccine Quad IM 3+ YRS 2016-05-22 00:00:[address] [facility] Influenza Virus Vaccine Quad IM 3+ YRS 2016-05-22 00:00:[address] [facility] Influenza Virus Vaccine Quad IM 3+ YRS 2016-05-22 00:00:[address] [facility] Influenza Virus Vaccine Quad IM 3+ YRS 2016-05-22 00:00:[address] [facility] Influenza Virus Vaccine Quad IM 3+ YRS 2016-05-22 00:00:[address] [facility] Influenza Virus Vaccine Quad IM 3+ YRS 2016-05-22 00:00:[address] [facility] Influenza Virus Vaccine Quad IM 3+ YRS 2016-05-22 00:00:[address] [facility] Influenza Virus Vaccine Quad IM 3+ YRS 2016-05-22 00:00:[address] [facility] Influenza Virus Vaccine Quad IM 3+ YRS 2016-05-22 00:00:[address] [facility] Influenza Virus Vaccine Quad IM 3+ YRS 2016-05-22 00:00:[address] [facility] Influenza Virus Vaccine Quad IM 3+ YRS 2016-05-22 00:00:[address] [facility] Influenza Virus Vaccine Quad IM 3+ YRS 2016-05-22 00:00:[address] [facility] Influenza Virus Vaccine Quad IM 3+ YRS 2016-05-22 00:00:[address] [facility] Influenza Virus Vaccine Quad IM 3+ YRS 2016-05-22 00:00:[address] [facility] Influenza Virus Vaccine Quad IM 3+ YRS 2016-05-22 00:00:[address] [facility] Influenza Virus Vaccine Quad IM 3+ YRS 2016-05-22 00:00:[address] [facility] Influenza Virus Vaccine Quad IM 3+ YRS 2016-05-22 00:00:[address] [facility] Influenza Virus Vaccine Quad IM 3+ YRS 2016-05-22 00:00:[address] [facility] Influenza Virus Vaccine Quad IM 3+ YRS 2016-05-22 00:00:[address] [facility] Influenza Virus Vaccine Quad IM 3+ YRS 2016-05-22 00:00:[address] [facility] Influenza Virus Vaccine Quad IM 3+ YRS 2016-05-22 00:00:[address] [facility] Influenza Virus Vaccine Quad IM 3+ YRS 2016-05-22 00:00:[address] [facility] Influenza Virus Vaccine Quad IM 3+ YRS 2016-05-22 00:00:[address] [facility] Influenza Virus Vaccine Quad IM 3+ YRS 2016-05-22 00:00:[address] [facility] Influenza Virus Vaccine Quad IM 3+ YRS 2016-05-22 00:00:[address] [facility] Influenza Virus Vaccine Quad IM 3+ YRS 2016-05-22 00:00:[address] [facility] Influenza Virus Vaccine Quad IM 3+ YRS 2016-05-22 00:00:[address] [facility] Influenza Virus Vaccine Quad IM 3+ YRS 2016-05-22 00:00:[address] [facility] Influenza Virus Vaccine Quad IM 3+ YRS 2016-05-22 00:00:[address] [facility] Influenza Virus Vaccine Quad IM 3+ YRS 2016-05-22 00:00:[address] [facility] Influenza Virus Vaccine Quad IM 3+ YRS 2016-05-22 00:00:[address] [facility] Influenza Virus Vaccine Quad IM 3+ YRS 2016-05-22 00:00:[address] [facility] Influenza Virus Vaccine Quad IM 3+ YRS 2016-05-22 00:00:[address] [facility] Influenza Virus Vaccine Quad IM 3+ YRS 2016-05-22 00:00:[address] [facility] Influenza Virus Vaccine Quad IM 3+ YRS 2016-05-22 00:00:[address] [facility] Influenza Virus Vaccine Quad IM 3+ YRS 2016-05-22 00:00:[address] [facility] Influenza Virus Vaccine Quad IM 3+ YRS 2016-05-22 00:00:[address] [facility] Influenza Virus Vaccine Quad IM 3+ YRS 2016-05-22 00:00:[address] [facility] Influenza Virus Vaccine Quad IM 3+ YRS 2016-05-22 00:00:[address] [facility] Influenza Virus Vaccine Quad IM 3+ YRS 2016-05-22 00:00:[address] [facility] Influenza Virus Vaccine Quad IM 3+ YRS 2016-05-22 00:00:[address] [facility] Influenza Virus Vaccine Quad IM 3+ YRS 2016-05-22 00:00:[address] [facility] Influenza Virus Vaccine Quad IM 3+ YRS 2016-05-22 00:00:[address] [facility] Influenza Virus Vaccine Quad IM 3+ YRS 2016-05-22 00:00:[address] [facility] Influenza Virus Vaccine Quad IM 3+ YRS 2016-05-22 00:00:[address] [facility] Influenza Virus Vaccine Quad IM 3+ YRS 2016-05-22 00:00:[address] [facility] Influenza Virus Vaccine Quad IM 3+ YRS 2016-05-22 00:00:[address] [facility] Influenza Virus Vaccine Quad IM 3+ YRS 2016-05-22 00:00:[address] [facility] Influenza Virus Vaccine Quad IM 3+ YRS 2016-05-22 00:00:[address] [facility] Influenza Virus Vaccine Quad IM 3+ YRS 2016-05-22 00:00:[address] [facility] Influenza Virus Vaccine Quad IM 3+ YRS 2016-05-22 00:00:[address] [facility] Influenza Virus Vaccine Quad IM 3+ YRS 2016-05-22 00:00:[address] [facility] Influenza Virus Vaccine Quad IM 3+ YRS 2016-05-22 00:00:[address] [facility] Influenza Virus Vaccine Quad IM 3+ YRS 2016-05-22 00:00:[address] [facility] Influenza Virus Vaccine Quad IM 3+ YRS 2016-05-22 00:00:[address] [facility] Influenza Virus Vaccine Quad IM 3+ YRS 2016-05-22 00:00:[address] [facility] Pneumococcal Polysaccharide, PPSV23 (PNEUMOVAX) 2015-08-31 00:00:[address] [facility] Pneumococcal Polysaccharide, PPSV23 (PNEUMOVAX) 2015-08-31 00:00:[address] [facility] Pneumococcal Polysaccharide, PPSV23 (PNEUMOVAX) 2015-08-31 00:00:[address] [facility] Pneumococcal Polysaccharide, PPSV23 (PNEUMOVAX) 2015-08-31 00:00:[address] [facility] Pneumococcal Polysaccharide, PPSV23 (PNEUMOVAX) 2015-08-31 00:00:[address] [facility] Pneumococcal Polysaccharide, PPSV23 (PNEUMOVAX) 2015-08-31 00:00:[address] [facility] Pneumococcal Polysaccharide, PPSV23 (PNEUMOVAX) 2015-08-31 00:00:[address] [facility] Pneumococcal Polysaccharide, PPSV23 (PNEUMOVAX) 2015-08-31 00:00:[address] [facility] Pneumococcal Polysaccharide, PPSV23 (PNEUMOVAX) 2015-08-31 00:00:[address] [facility] Pneumococcal Polysaccharide, PPSV23 (PNEUMOVAX) 2015-08-31 00:00:[address] [facility] Pneumococcal Polysaccharide, PPSV23 (PNEUMOVAX) 2015-08-31 00:00:[address] [facility] Pneumococcal Polysaccharide, PPSV23 (PNEUMOVAX) 2015-08-31 00:00:[address] [facility] Pneumococcal Polysaccharide, PPSV23 (PNEUMOVAX) 2015-08-31 00:00:[address] [facility] Pneumococcal Polysaccharide, PPSV23 (PNEUMOVAX) 2015-08-31 00:00:[address] [facility] Pneumococcal Polysaccharide, PPSV23 (PNEUMOVAX) 2015-08-31 00:00:[address] [facility] Pneumococcal Polysaccharide, PPSV23 (PNEUMOVAX) 2015-08-31 00:00:[address] [facility] Pneumococcal Polysaccharide, PPSV23 (PNEUMOVAX) 2015-08-31 00:00:[address] [facility] Pneumococcal Polysaccharide, PPSV23 (PNEUMOVAX) 2015-08-31 00:00:[address] [facility] Pneumococcal Polysaccharide, PPSV23 (PNEUMOVAX) 2015-08-31 00:00:[address] [facility] Pneumococcal Polysaccharide, PPSV23 (PNEUMOVAX) 2015-08-31 00:00:[address] [facility] Pneumococcal Polysaccharide, PPSV23 (PNEUMOVAX) 2015-08-31 00:00:[address] [facility] Pneumococcal Polysaccharide, PPSV23 (PNEUMOVAX) 2015-08-31 00:00:[address] [facility] Pneumococcal Polysaccharide, PPSV23 (PNEUMOVAX) 2015-08-31 00:00:[address] [facility] Pneumococcal Polysaccharide, PPSV23 (PNEUMOVAX) 2015-08-31 00:00:[address] [facility] Pneumococcal Polysaccharide, PPSV23 (PNEUMOVAX) 2015-08-31 00:00:[address] [facility] Pneumococcal Polysaccharide, PPSV23 (PNEUMOVAX) 2015-08-31 00:00:[address] [facility] Pneumococcal Polysaccharide, PPSV23 (PNEUMOVAX) 2015-08-31 00:00:[address] [facility] Pneumococcal Polysaccharide, PPSV23 (PNEUMOVAX) 2015-08-31 00:00:[address] [facility] Pneumococcal Polysaccharide, PPSV23 (PNEUMOVAX) 2015-08-31 00:00:[address] [facility] Pneumococcal Polysaccharide, PPSV23 (PNEUMOVAX) 2015-08-31 00:00:[address] [facility] Pneumococcal Polysaccharide, PPSV23 (PNEUMOVAX) 2015-08-31 00:00:[address] [facility] Pneumococcal Polysaccharide, PPSV23 (PNEUMOVAX) 2015-08-31 00:00:[address] [facility] Pneumococcal Polysaccharide, PPSV23 (PNEUMOVAX) 2015-08-31 00:00:[address] [facility] Pneumococcal Polysaccharide, PPSV23 (PNEUMOVAX) 2015-08-31 00:00:[address] [facility] Pneumococcal Polysaccharide, PPSV23 (PNEUMOVAX) 2015-08-31 00:00:[address] [facility] Pneumococcal Polysaccharide, PPSV23 (PNEUMOVAX) 2015-08-31 00:00:[address] [facility] Pneumococcal Polysaccharide, PPSV23 (PNEUMOVAX) 2015-08-31 00:00:[address] [facility] Pneumococcal Polysaccharide, PPSV23 (PNEUMOVAX) 2015-08-31 00:00:[address] [facility] Pneumococcal Polysaccharide, PPSV23 (PNEUMOVAX) 2015-08-31 00:00:[address] [facility] Pneumococcal Polysaccharide, PPSV23 (PNEUMOVAX) 2015-08-31 00:00:[address] [facility] Pneumococcal Polysaccharide, PPSV23 (PNEUMOVAX) 2015-08-31 00:00:[address] [facility] Pneumococcal Polysaccharide, PPSV23 (PNEUMOVAX) 2015-08-31 00:00:[address] [facility] Pneumococcal Polysaccharide, PPSV23 (PNEUMOVAX) 2015-08-31 00:00:[address] [facility] Pneumococcal Polysaccharide, PPSV23 (PNEUMOVAX) 2015-08-31 00:00:[address] [facility] Pneumococcal Polysaccharide, PPSV23 (PNEUMOVAX) 2015-08-31 00:00:[address] [facility] Pneumococcal Polysaccharide, PPSV23 (PNEUMOVAX) 2015-08-31 00:00:[address] [facility] Pneumococcal Polysaccharide, PPSV23 (PNEUMOVAX) 2015-08-31 00:00:[address] [facility] Pneumococcal Polysaccharide, PPSV23 (PNEUMOVAX) 2015-08-31 00:00:[address] [facility] Pneumococcal Polysaccharide, PPSV23 (PNEUMOVAX) 2015-08-31 00:00:[address] [facility] Pneumococcal Polysaccharide, PPSV23 (PNEUMOVAX) 2015-08-31 00:00:[address] [facility] Pneumococcal Polysaccharide, PPSV23 (PNEUMOVAX) 2015-08-31 00:00:[address] [facility] Pneumococcal Polysaccharide, PPSV23 (PNEUMOVAX) 2015-08-31 00:00:[address] [facility] Pneumococcal Polysaccharide, PPSV23 (PNEUMOVAX) 2015-08-31 00:00:[address] [facility] Pneumococcal Polysaccharide, PPSV23 (PNEUMOVAX) 2015-08-31 00:00:[address] [facility] Pneumococcal Polysaccharide, PPSV23 (PNEUMOVAX) 2015-08-31 00:00:[address] [facility] Pneumococcal Polysaccharide, PPSV23 (PNEUMOVAX) 2015-08-31 00:00:[address] [facility] Pneumococcal Polysaccharide, PPSV23 (PNEUMOVAX) 2015-08-31 00:00:[address] [facility] Pneumococcal Polysaccharide, PPSV23 (PNEUMOVAX) 2015-08-31 00:00:[address] [facility] Pneumococcal Polysaccharide, PPSV23 (PNEUMOVAX) 2015-08-31 00:00:[address] [facility] Pneumococcal Polysaccharide, PPSV23 (PNEUMOVAX) 2015-08-31 00:00:[address] [facility] Pneumococcal Polysaccharide, PPSV23 (PNEUMOVAX) 2015-08-31 00:00:[address] [facility] Pneumococcal Polysaccharide, PPSV23 (PNEUMOVAX) 2015-08-31 00:00:[address] [facility] Influenza Virus Vaccine Quad IM Multi-dose 6+ MO 2015-05-25 00:00:[address] [facility] Influenza Virus Vaccine Quad IM Multi-dose 6+ MO 2015-05-25 00:00:[address] [facility] Influenza Virus Vaccine Quad IM Multi-dose 6+ MO 2015-05-25 00:00:[address] [facility] Influenza Virus Vaccine Quad IM Multi-dose 6+ MO 2015-05-25 00:00:[address] [facility] Influenza Virus Vaccine Quad IM Multi-dose 6+ MO 2015-05-25 00:00:[address] [facility] Influenza Virus Vaccine Quad IM Multi-dose 6+ MO 2015-05-25 00:00:[address] [facility] Influenza Virus Vaccine Quad IM Multi-dose 6+ MO 2015-05-25 00:00:[address] [facility] Influenza Virus Vaccine Quad IM Multi-dose 6+ MO 2015-05-25 00:00:[address] [facility] Influenza Virus Vaccine Quad IM Multi-dose 6+ MO 2015-05-25 00:00:[address] [facility] Influenza Virus Vaccine Quad IM Multi-dose 6+ MO 2015-05-25 00:00:[address] [facility] Influenza Virus Vaccine Quad IM Multi-dose 6+ MO 2015-05-25 00:00:[address] [facility] Influenza Virus Vaccine Quad IM Multi-dose 6+ MO 2015-05-25 00:00:[address] [facility] Influenza Virus Vaccine Quad IM Multi-dose 6+ MO 2015-05-25 00:00:[address] [facility] Influenza Virus Vaccine Quad IM Multi-dose 6+ MO 2015-05-25 00:00:[address] [facility] Influenza Virus Vaccine Quad IM Multi-dose 6+ MO 2015-05-25 00:00:[address] [facility] Influenza Virus Vaccine Quad IM Multi-dose 6+ MO 2015-05-25 00:00:[address] [facility] Influenza Virus Vaccine Quad IM Multi-dose 6+ MO 2015-05-25 00:00:[address] [facility] Influenza Virus Vaccine Quad IM Multi-dose 6+ MO 2015-05-25 00:00:[address] [facility] Influenza Virus Vaccine Quad IM Multi-dose 6+ MO 2015-05-25 00:00:[address] [facility] Influenza Virus Vaccine Quad IM Multi-dose 6+ MO 2015-05-25 00:00:[address] [facility] Influenza Virus Vaccine Quad IM Multi-dose 6+ MO 2015-05-25 00:00:[address] [facility] Influenza Virus Vaccine Quad IM Multi-dose 6+ MO 2015-05-25 00:00:[address] [facility] Influenza Virus Vaccine Quad IM Multi-dose 6+ MO 2015-05-25 00:00:[address] [facility] Influenza Virus Vaccine Quad IM Multi-dose 6+ MO 2015-05-25 00:00:[address] [facility] Influenza Virus Vaccine Quad IM Multi-dose 6+ MO 2015-05-25 00:00:[address] [facility] Influenza Virus Vaccine Quad IM Multi-dose 6+ MO 2015-05-25 00:00:[address] [facility] Influenza Virus Vaccine Quad IM Multi-dose 6+ MO 2015-05-25 00:00:[address] [facility] Influenza Virus Vaccine Quad IM Multi-dose 6+ MO 2015-05-25 00:00:[address] [facility] Influenza Virus Vaccine Quad IM Multi-dose 6+ MO 2015-05-25 00:00:[address] [facility] Influenza Virus Vaccine Quad IM Multi-dose 6+ MO 2015-05-25 00:00:[address] [facility] Influenza Virus Vaccine Quad IM Multi-dose 6+ MO 2015-05-25 00:00:[address] [facility] Influenza Virus Vaccine Quad IM Multi-dose 6+ MO 2015-05-25 00:00:[address] [facility] Influenza Virus Vaccine Quad IM Multi-dose 6+ MO 2015-05-25 00:00:[address] [facility] Influenza Virus Vaccine Quad IM Multi-dose 6+ MO 2015-05-25 00:00:[address] [facility] Influenza Virus Vaccine Quad IM Multi-dose 6+ MO 2015-05-25 00:00:[address] [facility] Influenza Virus Vaccine Quad IM Multi-dose 6+ MO 2015-05-25 00:00:[address] [facility] Influenza Virus Vaccine Quad IM Multi-dose 6+ MO 2015-05-25 00:00:[address] [facility] Influenza Virus Vaccine Quad IM Multi-dose 6+ MO 2015-05-25 00:00:[address] [facility] Influenza Virus Vaccine Quad IM Multi-dose 6+ MO 2015-05-25 00:00:[address] [facility] Influenza Virus Vaccine Quad IM Multi-dose 6+ MO 2015-05-25 00:00:[address] [facility] Influenza Virus Vaccine Quad IM Multi-dose 6+ MO 2015-05-25 00:00:[address] [facility] Influenza Virus Vaccine Quad IM Multi-dose 6+ MO 2015-05-25 00:00:[address] [facility] Influenza Virus Vaccine Quad IM Multi-dose 6+ MO 2015-05-25 00:00:[address] [facility] Influenza Virus Vaccine Quad IM Multi-dose 6+ MO 2015-05-25 00:00:[address] [facility] Influenza Virus Vaccine Quad IM Multi-dose 6+ MO 2015-05-25 00:00:[address] [facility] Influenza Virus Vaccine Quad IM Multi-dose 6+ MO 2015-05-25 00:00:[address] [facility] Influenza Virus Vaccine Quad IM Multi-dose 6+ MO 2015-05-25 00:00:[address] [facility] Influenza Virus Vaccine Quad IM Multi-dose 6+ MO 2015-05-25 00:00:[address] [facility] Influenza Virus Vaccine Quad IM Multi-dose 6+ MO 2015-05-25 00:00:[address] [facility] Influenza Virus Vaccine Quad IM Multi-dose 6+ MO 2015-05-25 00:00:[address] [facility] Influenza Virus Vaccine Quad IM Multi-dose 6+ MO 2015-05-25 00:00:[address] [facility] Influenza Virus Vaccine Quad IM Multi-dose 6+ MO 2015-05-25 00:00:[address] [facility] Influenza Virus Vaccine Quad IM Multi-dose 6+ MO 2015-05-25 00:00:[address] [facility] Influenza Virus Vaccine Quad IM Multi-dose 6+ MO 2015-05-25 00:00:[address] [facility] Influenza Virus Vaccine Quad IM Multi-dose 6+ MO 2015-05-25 00:00:[address] [facility] Influenza Virus Vaccine Quad IM Multi-dose 6+ MO 2015-05-25 00:00:[address] [facility] Influenza Virus Vaccine Quad IM Multi-dose 6+ MO 2015-05-25 00:00:[address] [facility] Influenza Virus Vaccine Quad IM Multi-dose 6+ MO 2015-05-25 00:00:[address] [facility] Influenza Virus Vaccine Quad IM Multi-dose 6+ MO 2015-05-25 00:00:[address] [facility] Influenza Virus Vaccine Quad IM Multi-dose 6+ MO 2015-05-25 00:00:[address] [facility] Influenza Virus Vaccine Quad IM Multi-dose 6+ MO 2015-05-25 00:00:[address] [facility] Influenza Virus Vaccine Quad IM Multi-dose 6+ MO 2015-05-25 00:00:[address] [facility] Pneumococcal Polysaccharide, PPSV23 (PNEUMOVAX) Unknown Completed [facility] Influenza Virus Vaccine Quad IM 3+ YRS Unknown Completed [facility] TD, NOS Unknown Completed [facility] SARS-COV-2 COVID-19 PFIZER VACCINE Unknown Completed [facility] Influenza Virus Vaccine Quad IM Multi-dose 6+ MO Unknown Completed [facility] Pneumococcal Polysaccharide, PPSV23 (PNEUMOVAX) Unknown Completed [facility] Influenza Virus Vaccine Quad IM 3+ YRS Unknown Completed [facility] TD, NOS Unknown Completed [facility] SARS-COV-2 COVID-19 PFIZER VACCINE Unknown Completed [facility] Influenza Virus Vaccine Quad IM Multi-dose 6+ MO Unknown Completed [facility] Pneumococcal Polysaccharide, PPSV23 (PNEUMOVAX) Unknown Completed [facility] Influenza Virus Vaccine Quad IM 3+ YRS Unknown Completed [facility] TD, NOS Unknown Completed [facility] SARS-COV-2 COVID-19 PFIZER VACCINE Unknown Completed [facility] Influenza Virus Vaccine Quad IM Multi-dose 6+ MO Unknown Completed [facility] Pneumococcal Polysaccharide, PPSV23 (PNEUMOVAX) Unknown Completed [facility] Influenza Virus Vaccine Quad IM 3+ YRS Unknown Completed [facility] TD, NOS Unknown Completed [facility] SARS-COV-2 COVID-19 PFIZER VACCINE Unknown Completed [facility] Influenza Virus Vaccine Quad IM Multi-dose 6+ MO Unknown Completed [facility] Pneumococcal Polysaccharide, PPSV23 (PNEUMOVAX) Unknown Completed [facility] Influenza Virus Vaccine Quad IM 3+ YRS Unknown Completed [facility] TD, NOS Unknown Completed [facility] SARS-COV-2 COVID-19 PFIZER VACCINE Unknown Completed [facility] Influenza Virus Vaccine Quad IM Multi-dose 6+ MO Unknown Completed [facility] Pneumococcal Polysaccharide, PPSV23 (PNEUMOVAX) Unknown Completed [facility] Influenza Virus Vaccine Quad IM 3+ YRS Unknown Completed [facility] TD, NOS Unknown Completed [facility] SARS-COV-2 COVID-19 PFIZER VACCINE Unknown Completed [facility] Influenza Virus Vaccine Quad IM Multi-dose 6+ MO Unknown Completed [facility] Pneumococcal Polysaccharide, PPSV23 (PNEUMOVAX) Unknown Completed [facility] Influenza Virus Vaccine Quad .5 mL IM 6+ MO (FLUZONE/FLULAVAL/F LUARIX) Unknown Completed [facility] TD, NOS Unknown Completed [facility] SARS-COV-2 COVID-19 PFIZER VACCINE Unknown Completed [facility] Influenza Virus Vaccine Quad IM Multi-dose 6+ MO Unknown Completed [facility] Pneumococcal Polysaccharide, PPSV23 (PNEUMOVAX) Unknown Completed [facility] Influenza Virus Vaccine Quad .5 mL IM 6+ MO (FLUZONE/FLULAVAL/F LUARIX) Unknown Completed [facility] TD, NOS Unknown Completed [facility] SARS-COV-2 COVID-19 PFIZER VACCINE Unknown Completed [facility] Influenza Virus Vaccine Quad IM Multi-dose 6+ MO Unknown Completed [facility] Pneumococcal Polysaccharide, PPSV23 (PNEUMOVAX) Unknown Completed [facility] Influenza Virus Vaccine Quad .5 mL IM 6+ MO (FLUZONE/FLULAVAL/F LUARIX) Unknown Completed [facility] TD, NOS Unknown Completed [facility] SARS-COV-2 COVID-19 PFIZER VACCINE Unknown Completed [facility] Influenza Virus Vaccine Quad IM Multi-dose 6+ MO Unknown Completed [facility] Pneumococcal Polysaccharide, PPSV23 (PNEUMOVAX) Unknown Completed [facility] Influenza Virus Vaccine Quad .5 mL IM 6+ MO (FLUZONE/FLULAVAL/F LUARIX) Unknown Completed [facility] TD, NOS Unknown Completed [facility] SARS-COV-2 COVID-19 PFIZER VACCINE Unknown Completed [facility] Influenza Virus Vaccine Quad IM Multi-dose 6+ MO Unknown Completed [facility] Pneumococcal Polysaccharide, PPSV23 (PNEUMOVAX) Unknown Completed [facility] Influenza Virus Vaccine Quad .5 mL IM 6+ MO (FLUZONE/FLULAVAL/F LUARIX) Unknown Completed [facility] TD, NOS Unknown Completed [facility] SARS-COV-2 COVID-19 PFIZER VACCINE Unknown Completed [facility] Influenza Virus Vaccine Quad IM Multi-dose 6+ MO Unknown Completed [facility] Pneumococcal Polysaccharide, PPSV23 (PNEUMOVAX) Unknown Completed [facility] Influenza Virus Vaccine Quad .5 mL IM 6+ MO (FLUZONE/FLULAVAL/F LUARIX) Unknown Completed [facility] TD, NOS Unknown Completed [facility] SARS-COV-2 COVID-19 PFIZER VACCINE Unknown Completed [facility] Influenza Virus Vaccine Quad IM Multi-dose 6+ MO Unknown Completed [facility] Pneumococcal Polysaccharide, PPSV23 (PNEUMOVAX) Unknown Completed [facility] Influenza Virus Vaccine Quad .5 mL IM 6+ MO (FLUZONE/FLULAVAL/F LUARIX) Unknown Completed [facility] TD, NOS Unknown Completed [facility] SARS-COV-2 COVID-19 PFIZER VACCINE Unknown Completed [facility] Influenza Virus Vaccine Quad IM Multi-dose 6+ MO Unknown Completed [facility] Pneumococcal Polysaccharide, PPSV23 (PNEUMOVAX) Unknown Completed [facility] TD, NOS Unknown Completed [facility] Influenza Virus Vaccine Quad .5 mL IM 6+ MO (FLUZONE/FLULAVAL/F LUARIX) Unknown Completed [facility] SARS-COV-2 COVID-19 PFIZER VACCINE Unknown Completed [facility] Influenza Virus Vaccine Quad IM Multi-dose 6+ MO Unknown Completed [facility] Pneumococcal Polysaccharide, PPSV23 (PNEUMOVAX) Unknown Completed [facility] TD, NOS Unknown Completed [facility] Influenza Virus Vaccine Quad .5 mL IM 6+ MO (FLUZONE/FLULAVAL/F LUARIX) Unknown Completed [facility] SARS-COV-2 COVID-19 PFIZER VACCINE Unknown Completed [facility] Influenza Virus Vaccine Quad IM Multi-dose 6+ MO Unknown Completed [facility] Pneumococcal Polysaccharide, PPSV23 (PNEUMOVAX) Unknown Completed [facility] Influenza Virus Vaccine Quad IM 3+ YRS Unknown Completed [facility] TD, NOS Unknown Completed [facility] SARS-COV-2 COVID-19 PFIZER VACCINE Unknown Completed [facility] Influenza Virus Vaccine Quad IM Multi-dose 6+ MO Unknown Completed [facility] Pneumococcal Polysaccharide, PPSV23 (PNEUMOVAX) Unknown Completed [facility] Influenza Virus Vaccine Quad IM 3+ YRS Unknown Completed [facility] TD, NOS Unknown Completed [facility] SARS-COV-2 COVID-19 PFIZER VACCINE Unknown Completed [facility] Influenza Virus Vaccine Quad IM Multi-dose 6+ MO Unknown Completed [facility] Pneumococcal Polysaccharide, PPSV23 (PNEUMOVAX) Unknown Completed [facility] Influenza Virus Vaccine Quad IM 3+ YRS Unknown Completed [facility] TD, NOS Unknown Completed [facility] SARS-COV-2 COVID-19 PFIZER VACCINE Unknown Completed [facility] Influenza Virus Vaccine Quad IM Multi-dose 6+ MO Unknown Completed [facility] Pneumococcal Polysaccharide, PPSV23 (PNEUMOVAX) Unknown [facility] Influenza Virus Vaccine Quad IM 3+ YRS Unknown Completed [facility] TD, NOS Unknown Completed [facility] SARS-COV-2 COVID-19 PFIZER VACCINE Unknown Completed [facility] Influenza Virus Vaccine Quad IM Multi-dose 6+ MO Unknown Completed [facility] Pneumococcal Polysaccharide, PPSV23 (PNEUMOVAX) Unknown Completed [facility] Influenza Virus Vaccine Quad IM 3+ YRS Unknown Completed [facility] TD, NOS Unknown Completed [facility] SARS-COV-2 COVID-19 PFIZER VACCINE Unknown Completed [facility] Influenza Virus Vaccine Quad IM Multi-dose 6+ MO Unknown Completed [facility] Pneumococcal Polysaccharide, PPSV23 (PNEUMOVAX) Unknown Completed [facility] Influenza Virus Vaccine Quad IM 3+ YRS Unknown Completed [facility] TD, NOS Unknown Completed [facility] SARS-COV-2 COVID-19 PFIZER VACCINE Unknown Completed [facility] Influenza Virus Vaccine Quad IM Multi-dose 6+ MO Unknown Completed [facility] Pneumococcal Polysaccharide, PPSV23 (PNEUMOVAX) Unknown Completed [facility] Influenza Virus Vaccine Quad IM 3+ YRS Unknown Completed [facility] TD, NOS Unknown Completed [facility] SARS-COV-2 COVID-19 PFIZER VACCINE Unknown Completed [facility] Influenza Virus Vaccine Quad IM Multi-dose 6+ MO Unknown Completed [facility] Pneumococcal Polysaccharide, PPSV23 (PNEUMOVAX) Unknown Completed [facility] Influenza Virus Vaccine Quad IM 3+ YRS Unknown Completed [facility] TD, NOS Unknown Completed [facility] SARS-COV-2 COVID-19 PFIZER VACCINE Unknown Completed [facility] Influenza Virus Vaccine Quad IM Multi-dose 6+ MO Unknown Completed [facility] Pneumococcal Polysaccharide, PPSV23 (PNEUMOVAX) Unknown Completed [facility] TD, NOS Unknown Completed [facility] SARS-COV-2 COVID-19 PFIZER VACCINE Unknown Completed [facility] Influenza Virus Vaccine Quad IM 3+ YRS Unknown Completed [facility] Influenza Virus Vaccine Quad IM Multi-dose 6+ MO Unknown Completed [facility] Pneumococcal Polysaccharide, PPSV23 (PNEUMOVAX) Unknown Completed [facility] Influenza Virus Vaccine Quad IM 3+ YRS Unknown Completed [facility] TD, NOS Unknown Completed [facility] SARS-COV-2 COVID-19 PFIZER VACCINE Unknown Completed [facility] Influenza Virus Vaccine Quad IM Multi-dose 6+ MO Unknown Completed [facility] Pneumococcal Polysaccharide, PPSV23 (PNEUMOVAX) Unknown Completed [facility] Influenza Virus Vaccine Quad IM 3+ YRS Unknown Completed [facility] TD, NOS Unknown Completed [facility] SARS-COV-2 COVID-19 PFIZER VACCINE Unknown Completed [facility] Influenza Virus Vaccine Quad IM Multi-dose 6+ MO Unknown Completed [facility] Pneumococcal Polysaccharide, PPSV23 (PNEUMOVAX) Unknown Completed [facility] Influenza Virus Vaccine Quad IM 3+ YRS Unknown Completed [facility] TD, NOS Unknown Completed [facility] SARS-COV-2 COVID-19 PFIZER VACCINE Unknown Completed [facility] Influenza Virus Vaccine Quad IM Multi-dose 6+ MO Unknown Completed [facility] Pneumococcal Polysaccharide, PPSV23 (PNEUMOVAX) Unknown Completed [facility] Influenza Virus Vaccine Quad IM 3+ YRS Unknown Completed [facility] TD, NOS Unknown Completed [facility] SARS-COV-2 COVID-19 PFIZER VACCINE Unknown Completed [facility] Influenza Virus Vaccine Quad IM Multi-dose 6+ MO Unknown Completed [facility] Pneumococcal Polysaccharide, PPSV23 (PNEUMOVAX) Unknown Completed [facility] TD, NOS Unknown Completed [facility] Influenza Virus Vaccine Quad .5 mL IM 6+ MO (FLUZONE/FLULAVAL/F LUARIX) Unknown Completed [facility] SARS-COV-2 COVID-19 PFIZER VACCINE Unknown Completed [facility] Influenza Virus Vaccine Quad IM Multi-dose 6+ MO Unknown Completed [facility] Pneumococcal Polysaccharide, PPSV23 (PNEUMOVAX) Unknown Completed [facility] Influenza Virus Vaccine Quad IM 3+ YRS Unknown Completed [facility] TD, NOS Unknown Completed [facility] SARS-COV-2 COVID-19 PFIZER VACCINE Unknown Completed [facility] Influenza Virus Vaccine Quad IM Multi-dose 6+ MO Unknown Completed [facility] Pneumococcal Polysaccharide, PPSV23 (PNEUMOVAX) Unknown Completed [facility] Influenza Virus Vaccine Quad IM 3+ YRS Unknown Completed [facility] TD, NOS Unknown Completed [facility] SARS-COV-2 COVID-19 PFIZER VACCINE Unknown Completed [facility] Influenza Virus Vaccine Quad IM Multi-dose 6+ MO Unknown Completed [facility] Pneumococcal Polysaccharide, PPSV23 (PNEUMOVAX) Unknown Completed [facility] Influenza Virus Vaccine Quad IM 3+ YRS Unknown Completed [facility] TD, NOS Unknown Completed [facility] SARS-COV-2 COVID-19 PFIZER VACCINE Unknown Completed [facility] Influenza Virus Vaccine Quad IM Multi-dose 6+ MO Unknown Completed [facility] Pneumococcal Polysaccharide, PPSV23 (PNEUMOVAX) Unknown Completed [facility] TD, NOS Unknown Completed [facility] SARS-COV-2 COVID-19 PFIZER VACCINE Unknown Completed [facility] Influenza Virus Vaccine Quad IM Multi-dose 6+ MO Unknown Completed [facility] Pneumococcal Polysaccharide, PPSV23 (PNEUMOVAX) Unknown Completed [facility] Influenza Virus Vaccine Quad IM 3+ YRS Unknown Completed [facility] TD, NOS Unknown Completed [facility] SARS-COV-2 COVID-19 PFIZER VACCINE Unknown Completed [facility] Influenza Virus Vaccine Quad IM Multi-dose 6+ MO Unknown Completed [facility] Pneumococcal Polysaccharide, PPSV23 (PNEUMOVAX) Unknown Completed [facility] Influenza Virus Vaccine Quad IM 3+ YRS Unknown Completed [facility] TD, NOS Unknown Completed [facility] Influenza Virus Vaccine Quad IM Multi-dose 6+ MO Unknown Completed [facility] Pneumococcal Polysaccharide, PPSV23 (PNEUMOVAX) Unknown Completed [facility] Influenza Virus Vaccine Quad IM 3+ YRS Unknown Completed [facility] TD, NOS Unknown Completed [facility] SARS-COV-2 COVID-19 PFIZER VACCINE Unknown Completed [facility] Influenza Virus Vaccine Quad IM 3+ YRS Unknown Completed [facility] Influenza Virus Vaccine Quad IM Multi-dose 6+ MO Unknown Completed [facility] Pneumococcal Polysaccharide, PPSV23 (PNEUMOVAX) Unknown Completed [facility] Influenza Virus Vaccine Quad IM 3+ YRS Unknown Completed [facility] TD, NOS Unknown Completed [facility] SARS-COV-2 COVID-19 PFIZER VACCINE Unknown Completed [facility] Influenza Virus Vaccine Quad IM Multi-dose 6+ MO Unknown Completed [facility] Pneumococcal Polysaccharide, PPSV23 (PNEUMOVAX) Unknown Completed [facility] Influenza Virus Vaccine Quad IM 3+ YRS Unknown Completed [facility] TD, NOS Unknown Completed [facility] SARS-COV-2 COVID-19 PFIZER VACCINE Unknown Completed [facility] Influenza Virus Vaccine Quad IM Multi-dose 6+ MO Unknown Completed [facility] Pneumococcal Polysaccharide, PPSV23 (PNEUMOVAX) Unknown Completed [facility] Influenza Virus Vaccine Quad IM 3+ YRS Unknown Completed [facility] TD, NOS Unknown Completed [facility] SARS-COV-2 COVID-19 PFIZER VACCINE Unknown Completed [facility] Influenza Virus Vaccine Quad IM Multi-dose 6+ MO Unknown Completed [facility] Pneumococcal Polysaccharide, PPSV23 (PNEUMOVAX) Unknown Completed [facility] Influenza Virus Vaccine Quad IM 3+ YRS Unknown Completed [facility] TD, NOS Unknown Completed [facility] SARS-COV-2 COVID-19 PFIZER VACCINE Unknown Completed [facility] Influenza Virus Vaccine Quad IM Multi-dose 6+ MO Unknown Completed [facility] Pneumococcal Polysaccharide, PPSV23 (PNEUMOVAX) Unknown Completed [facility] Influenza Virus Vaccine Quad IM 3+ YRS Unknown Completed [facility] TD, NOS Unknown Completed [facility] SARS-COV-2 COVID-19 PFIZER VACCINE Unknown Completed [facility] Influenza Virus Vaccine Quad IM Multi-dose 6+ MO Unknown Completed [facility] Pneumococcal Polysaccharide, PPSV23 (PNEUMOVAX) Unknown Completed [facility] Influenza Virus Vaccine Quad IM 3+ YRS Unknown Completed [facility] TD, NOS Unknown Completed [facility] SARS-COV-2 COVID-19 PFIZER VACCINE Unknown Completed [facility] Influenza Virus Vaccine Quad IM Multi-dose 6+ MO Unknown Completed [facility] Vital Signs Vital Name Observation Time Observation Value Comments S ource Heart rate 2024-10-03 13:00:00 92 /min Mack hurd [facility] Respiratory rate 2024-10-03 13:00:00 20 /min [facility] Oxygen saturation in Arterial blood by Pulse oximetry 2024-10-03 13:00:00 97 /min [facility] Systolic blood pressure 2024-10-03 10:00:00 132 mm[Hg] [facility] Diastolic blood pressure 2024-10-03 10:00:00 78 mm[Hg] [facility] Body temperature 2024-10-02 22:00:00 36.56 Sara [facility] Body height 2024-10-01 10:40:18 180 cm Juan Daniel vega Ang [facility] Body weight 2024-10-01 10:40:18 95 kg Juan Daniel Fry Epic BMI 2024-10-01 10:40:18 29.32 kg/m2 Juan Daniel gary Albertann Epic Systolic blood pressure 2024-10-05 02:00:00 169 mm[Hg] [facility] Diastolic blood pressure 2024-10-05 02:00:00 90 mm[Hg] [facility] Heart rate 2024-10-05 02:00:00 87 /min [facility] Body temperature 2024-10-05 02:00:[address] [facility] Respiratory rate 2024-10-05 02:00:00 18 /min [facility] Oxygen saturation in Arterial blood by Pulse oximetry 2024-10-05 02:00:00 100 /min [facility] Body height 2024-10-04 22:34:00 188 cm [facility] Body weight 2024-10-04 22:34:00 131.09 kg [facility] BMI 2024-10-04 22:34:00 37.11 kg/m2 [facility] Systolic blood pressure 2024-10-04 21:46:00 122 mm[Hg] [facility] Diastolic blood pressure 2024-10-04 21:46:00 78 mm[Hg] [facility] Heart rate 2024-10-04 21:41:00 76 /min [facility] Body temperature 2024-10-04 21:41:[address] [facility] Body weight 2024-10-04 21:41:00 131.09 kg [facility] BMI 2024-10-04 21:41:00 37.11 kg/m2 [facility] Oxygen saturation in Arterial blood by Pulse oximetry 2024-10-04 21:41:00 97 /min [facility] Heart rate 2024-10-03 13:00:00 92 /min Mack Fry Epic Respiratory rate 2024-10-03 13:00:00 20 /min Annika Gill Oxygen saturation in Arterial blood by Pulse oximetry 2024-10-03 13:00:00 97 /min Annika Gill Systolic blood pressure 2024-10-03 10:00:00 132 mm[Hg] [facility] Diastolic blood pressure 2024-10-03 10:00:00 78 mm[Hg] [facility] Body temperature 2024-10-02 22:00:00 36.56 Sara [facility] 2024-10-01 10:40:18 180 cm Juan Daniel gary Albertann Epic Body weight 2024-10-01 10:40:18 95 kg Juan Daniel gary [facility] Epic BMI 2024-10-01 10:40:18 29.32 kg/m2 Juan Daniel jose manuell Ang Epic Heart rate 2024-10-03 13:00:00 92 /min [facility] Respiratory rate 2024-10-03 13:00:00 20 /min [facility] Ang [facility] Oxygen saturation in Arterial blood by Pulse oximetry 2024-10-03 13:00:00 97 /min [facility] Systolic blood pressure 2024-10-03 10:00:00 132 mm[Hg] [facility] Diastolic blood pressure 2024-10-03 10:00:00 78 mm[Hg] [facility] Body temperature 2024-10-02 22:00:00 36.56 Sara [facility] height 2024-10-01 10:40:18 180 cm Juan Daniel Albertann Epic Body weight 2024-10-01 10:40:18 95 kg Juan Daniel gary [facility]bee Epic BMI 2024-10-01 10:40:18 29.32 kg/m2 Juan Daniel gary Ang Epic Systolic blood pressure 2024-09-29 20:21:00 133 mm[Hg] [facility] Diastolic blood pressure 2024-09-29 20:21:00 89 mm[Hg] [facility] Heart rate 2024-09-29 20:21:00 69 /min [facility] Respiratory rate 2024-09-29 20:20:00 18 /min [facility] Body height 2024-09-29 20:20:00 188 cm [facility] Body weight 2024-09-29 20:20:00 131.226 kg [facility] BMI 2024-09-29 20:20:00 37.14 kg/m2 [facility] Oxygen saturation in Arterial blood by Pulse oximetry 2024-09-29 20:20:00 98 /min [facility] Systolic blood pressure 2024-09-29 19:55:00 133 mm[Hg] [facility] Diastolic blood pressure 2024-09-29 19:55:00 89 mm[Hg] [facility] Heart rate 2024-09-29 19:55:00 69 /min [facility] Respiratory rate 2024-09-29 19:52:00 18 /min [facility] Body height 2024-09-29 19:52:00 188 cm [facility] Body weight 2024-09-29 19:52:00 131.226 kg [facility] BMI 2024-09-29 19:52:00 37.14 kg/m2 [facility] Oxygen saturation in Arterial blood by Pulse oximetry 2024-09-29 19:52:00 98 /min [facility] Systolic blood pressure 2024-09-20 21:31:00 169 mm[Hg] [facility] Diastolic blood pressure 2024-09-20 21:31:00 115 mm[Hg] [facility] Heart rate 2024-09-20 21:31:00 84 /min [facility] Body temperature 2024-09-20 21:31:[address] [facility] Respiratory rate 2024-09-20 21:31:00 20 /min [facility] Oxygen saturation in Arterial blood by Pulse oximetry 2024-09-20 21:31:00 97 /min [facility] Body weight 2024-09-20 10:14:00 131.498 kg [facility] BMI 2024-09-20 10:14:00 37.22 kg/m2 [facility] Body height 2024-09-19 21:26:00 188 cm [facility] Systolic blood pressure 2024-09-18 23:05:00 146 mm[Hg] [facility] Diastolic blood pressure 2024-09-18 23:05:00 113 mm[Hg] [facility] Heart rate 2024-09-18 23:05:00 69 /min [facility] Respiratory rate 2024-09-18 23:05:00 19 /min [facility] Oxygen saturation in Arterial blood by Pulse oximetry 2024-09-18 23:05:00 99 /min [facility] Body temperature 2024-09-18 20:35:[address] [facility] Body height 2024-09-18 20:33:00 188 cm [facility] Body weight 2024-09-18 20:33:00 129.729 kg [facility] BMI 2024-09-18 20:33:00 36.72 kg/m2 [facility] Systolic blood pressure 2024-08-26 20:29:00 104 mm[Hg] [facility] Diastolic blood pressure 2024-08-26 20:29:00 74 mm[Hg] [facility] Heart rate 2024-08-26 20:29:00 81 /min [facility] Body temperature 2024-08-26 20:29:[address] [facility] Body weight 2024-08-26 20:29:00 128.368 kg [facility] BMI 2024-08-26 20:29:00 36.34 kg/m2 [facility] Oxygen saturation in Arterial blood by Pulse oximetry 2024-08-26 20:29:00 97 /min [facility] Systolic blood pressure 2024-08-19 18:00:00 100 mm[Hg] [facility] Diastolic blood pressure 2024-08-19 18:00:00 65 mm[Hg] [facility] Heart rate 2024-08-19 18:00:00 85 /min [facility] Oxygen saturation in Arterial blood by Pulse oximetry 2024-08-19 18:00:00 97 /min [facility] Body temperature 2024-08-19 17:00:[address] [facility] Respiratory rate 2024-08-19 17:00:00 14 /min [facility] Body weight 2024-08-19 09:46:00 124.966 kg [facility] BMI 2024-08-19 09:46:00 35.37 kg/m2 [facility] Body height 2024-08-19 01:05:00 188 cm [facility] Systolic blood pressure 2024-08-15 18:26:00 113 mm[Hg] [facility] Diastolic blood pressure 2024-08-15 18:26:00 79 mm[Hg] [facility] Heart rate 2024-08-15 18:26:00 75 /min [facility] Body temperature 2024-08-15 18:26:[address] [facility] Respiratory rate 2024-08-15 18:26:00 20 /min [facility] Oxygen saturation in Arterial blood by Pulse oximetry 2024-08-15 18:26:00 94 /min [facility] Body weight 2024-08-15 09:31:00 127.96 kg [facility] BMI 2024-08-15 09:31:00 36.22 kg/m2 [facility] Body height 2024-08-12 20:53:14 188 cm [facility] Systolic blood pressure 2024-08-12 22:05:00 136 mm[Hg] [facility] Diastolic blood pressure 2024-08-12 22:05:00 97 mm[Hg] [facility] Heart rate 2024-08-12 22:05:00 70 /min [facility] Respiratory rate 2024-08-12 22:05:00 16 /min [facility] Oxygen saturation in Arterial blood by Pulse oximetry 2024-08-12 22:05:00 97 /min [facility] Body height 2024-08-12 20:53:14 188 cm [facility] Body weight 2024-08-12 20:53:14 128.822 kg [facility] BMI 2024-08-12 20:53:14 36.22 kg/m2 [facility] Body temperature 2024-08-12 18:08:[address] [facility] Systolic blood pressure 2024-08-02 00:25:00 126 mm[Hg] [facility] Diastolic blood pressure 2024-08-02 00:25:00 94 mm[Hg] [facility] Heart rate 2024-08-02 00:25:00 108 /min [facility] Body temperature 2024-08-01 22:11:[address] [facility] Respiratory rate 2024-08-01 22:11:00 18 /min [facility] Oxygen saturation in Arterial blood by Pulse oximetry 2024-08-01 22:11:00 97 /min [facility] Body weight 2024-08-01 09:41:00 130.318 kg [facility] BMI 2024-08-01 09:41:00 36.89 kg/m2 [facility] Body height 2024-07-31 19:45:00 188 cm [facility] Heart rate 2024-07-28 21:00:00 109 /min [facility] Respiratory rate 2024-07-28 21:00:00 15 /min [facility] Oxygen saturation in Arterial blood by Pulse oximetry 2024-07-28 21:00:00 95 /min [facility] Systolic blood pressure 2024-07-28 20:23:00 160 mm[Hg] [facility] Diastolic blood pressure 2024-07-28 20:23:00 105 mm[Hg] [facility] Body temperature 2024-07-28 20:23:[address] [facility] Body height 2024-07-28 20:23:00 188 cm [facility] Body weight 2024-07-28 20:23:00 127.007 kg [facility] BMI 2024-07-28 20:23:00 35.95 kg/m2 [facility] Systolic blood pressure 2024-07-21 19:48:00 107 mm[Hg] [facility] Diastolic blood pressure 2024-07-21 19:48:00 76 mm[Hg] [facility] Heart rate 2024-07-21 17:06:00 96 /min [facility] Body temperature 2024-07-21 17:06:[address] [facility] Respiratory rate 2024-07-21 17:06:00 20 /min [facility] Oxygen saturation in Arterial blood by Pulse oximetry 2024-07-21 17:06:00 96 /min [facility] Body weight 2024-07-21 10:00:00 127.007 kg [facility] BMI 2024-07-21 10:00:00 35.95 kg/m2 [facility] Body height 2024-07-13 17:52:00 188 cm [facility] Systolic blood pressure 2024-07-20 00:45:00 122 mm[Hg] [facility] Diastolic blood pressure 2024-07-20 00:45:00 96 mm[Hg] [facility] Heart rate 2024-07-20 00:45:00 93 /min [facility] Respiratory rate 2024-07-20 00:45:00 13 /min [facility] Oxygen saturation in Arterial blood by Pulse oximetry 2024-07-20 00:45:00 97 /min [facility] Body temperature 2024-07-19 18:05:[address] [facility] Body weight 2024-07-19 10:57:00 126.191 kg [facility] BMI 2024-07-19 10:57:00 35.95 kg/m2 [facility] Body height 2024-07-13 17:52:00 188 cm [facility] Systolic blood pressure 2024-07-18 14:05:00 130 mm[Hg] [facility] Diastolic blood pressure 2024-07-18 14:05:00 90 mm[Hg] [facility] Heart rate 2024-07-18 14:05:00 82 /min [facility] Body temperature 2024-07-18 14:05:[address] [facility] Respiratory rate 2024-07-18 14:05:00 16 /min [facility] Oxygen saturation in Arterial blood by Pulse oximetry 2024-07-18 14:05:00 95 /min [facility] Body weight 2024-07-18 11:04:00 126.132 kg [facility] BMI 2024-07-18 11:04:00 35.72 kg/m2 [facility] Body height 2024-07-13 17:52:00 188 cm [facility] Systolic blood pressure 2024-07-13 17:12:00 157 mm[Hg] [facility] Diastolic blood pressure 2024-07-13 17:12:00 122 mm[Hg] [facility] Heart rate 2024-07-13 17:12:00 101 /min [facility] Oxygen saturation in Arterial blood by Pulse oximetry 2024-07-13 17:12:00 96 /min [facility] Respiratory rate 2024-07-13 17:10:00 18 /min [facility] Body height 2024-07-13 17:10:00 188 cm [facility] Body weight 2024-07-13 17:10:00 136.896 kg [facility] BMI 2024-07-13 17:10:00 38.75 kg/m2 [facility] Systolic blood pressure 2024-07-13 16:13:00 150 mm[Hg] [facility] Diastolic blood pressure 2024-07-13 16:13:00 107 mm[Hg] [facility] Heart rate 2024-07-13 16:13:00 96 /min [facility] Oxygen saturation in Arterial blood by Pulse oximetry 2024-07-13 16:13:00 98 /min [facility] Body temperature 2024-07-13 16:10:[address] [facility] Body height 2024-07-13 16:10:00 188 cm [facility] Body weight 2024-07-13 16:10:00 136.533 kg [facility] BMI 2024-07-13 16:10:00 38.65 kg/m2 [facility] Systolic blood pressure 2024-07-04 17:24:00 138 mm[Hg] [facility] Diastolic blood pressure 2024-07-04 17:24:00 95 mm[Hg] [facility] Heart rate 2024-07-04 17:24:00 82 /min [facility] Body temperature 2024-07-04 17:24:[address] [facility] Respiratory rate 2024-07-04 17:24:00 19 /min [facility] Oxygen saturation in Arterial blood by Pulse oximetry 2024-07-04 17:24:00 97 /min [facility] Body weight 2024-07-04 09:34:00 137.485 kg [facility] BMI 2024-07-04 09:34:00 38.92 kg/m2 [facility] Body height 2024-07-03 21:17:00 188 cm [facility] Systolic blood pressure 2024-06-20 16:11:00 131 mm[Hg] [facility] Diastolic blood pressure 2024-06-20 16:11:00 93 mm[Hg] [facility] Heart rate 2024-06-20 16:10:00 84 /min [facility] Body temperature 2024-06-20 16:10:[address] [facility] Body height 2024-06-20 16:10:00 188 cm [facility] Body weight 2024-06-20 16:10:00 135.626 kg [facility] BMI 2024-06-20 16:10:00 38.39 kg/m2 [facility] Oxygen saturation in Arterial blood by Pulse oximetry 2024-06-20 16:10:00 97 /min [facility] Systolic blood pressure 2024-06-01 14:47:00 126 mm[Hg] [facility] Diastolic blood pressure 2024-06-01 14:47:00 88 mm[Hg] [facility] Heart rate 2024-06-01 14:47:00 84 /min [facility] Body temperature 2024-06-01 14:47:[address] [facility] Respiratory rate 2024-06-01 14:47:00 18 /min [facility] Body height 2024-06-01 14:47:00 188 cm [facility] Body weight 2024-06-01 14:47:00 130.863 kg [facility] BMI 2024-06-01 14:47:00 37.04 kg/m2 [facility] Oxygen saturation in Arterial blood by Pulse oximetry 2024-06-01 14:47:00 98 /min [facility] Systolic blood pressure 2024-05-20 19:42:00 115 mm[Hg] [facility] Diastolic blood pressure 2024-05-20 19:42:00 76 mm[Hg] [facility] Heart rate 2024-05-20 19:42:00 75 /min [facility] Body temperature 2024-05-20 19:42:[address] [facility] Body height 2024-05-20 19:42:00 188 cm [facility] Body weight 2024-05-20 19:42:00 128.822 kg [facility] BMI 2024-05-20 19:42:00 36.46 kg/m2 [facility] Oxygen saturation in Arterial blood by Pulse oximetry 2024-05-20 19:42:00 98 /min [facility] Systolic blood pressure 2024-05-17 21:35:00 115 mm[Hg] [facility] Diastolic blood pressure 2024-05-17 21:35:00 69 mm[Hg] [facility] Heart rate 2024-05-17 21:35:00 74 /min [facility] Oxygen saturation in Arterial blood by Pulse oximetry 2024-05-17 21:35:00 96 /min [facility] Body temperature 2024-05-17 20:30:[address] [facility] Respiratory rate 2024-05-17 18:00:00 21 /min [facility] Body weight 2024-05-17 08:11:00 130.999 kg [facility] BMI 2024-05-17 08:11:00 37.08 kg/m2 [facility] Body height 2024-05-15 05:14:00 188 cm [facility] Systolic blood pressure 2024-04-25 15:44:00 117 mm[Hg] [facility] Diastolic blood pressure 2024-04-25 15:44:00 89 mm[Hg] [facility] Heart rate 2024-04-25 15:44:00 95 /min [facility] Oxygen saturation in Arterial blood by Pulse oximetry 2024-04-25 15:44:00 99 /min [facility] Respiratory rate 2024-04-25 15:41:00 17 /min [facility] Body height 2024-04-25 15:41:00 188 cm [facility] Body weight 2024-04-25 15:41:00 129.865 kg [facility] BMI 2024-04-25 15:41:00 36.76 kg/m2 [facility] Body height 2024-04-19 15:01:00 188 cm [facility] Body weight 2024-04-19 15:01:00 131.044 kg [facility] BMI 2024-04-19 15:01:00 37.09 kg/m2 [facility] Systolic blood pressure 2024-04-13 14:56:00 115 mm[Hg] [facility] Diastolic blood pressure 2024-04-13 14:56:00 79 mm[Hg] [facility] Heart rate 2024-04-13 14:56:00 96 /min [facility] Body temperature 2024-04-13 14:56:[address] [facility] Body height 2024-04-13 14:56:00 188 cm [facility] Body weight 2024-04-13 14:56:00 131.18 kg [facility] BMI 2024-04-13 14:56:00 37.13 kg/m2 [facility] Oxygen saturation in Arterial blood by Pulse oximetry 2024-04-13 14:56:00 98 /min [facility] Systolic blood pressure 2024-04-13 14:57:00 115 mm[Hg] [facility] Diastolic blood pressure 2024-04-13 14:57:00 79 mm[Hg] [facility] Heart rate 2024-04-13 14:57:00 96 /min [facility] Body temperature 2024-04-13 14:57:[address] [facility] Body height 2024-04-13 14:57:00 188 cm [facility] Body weight 2024-04-13 14:57:00 131.18 kg [facility] BMI 2024-04-13 14:57:00 37.13 kg/m2 [facility] Oxygen saturation in Arterial blood by Pulse oximetry 2024-04-13 14:57:00 98 /min [facility] Systolic blood pressure 2024-04-06 16:17:00 138 mm[Hg] [facility] Diastolic blood pressure 2024-04-06 16:17:00 99 mm[Hg] [facility] Heart rate 2024-04-06 16:17:00 73 /min [facility] Body temperature 2024-04-06 16:17:[address] [facility] Respiratory rate 2024-04-06 16:17:00 20 /min [facility] Oxygen saturation in Arterial blood by Pulse oximetry 2024-04-06 16:17:00 97 /min [facility] Body weight 2024-04-06 08:08:00 134.99 kg [facility] BMI 2024-04-06 08:08:00 38.21 kg/m2 [facility] Body height 2024-04-04 21:08:00 188 cm [facility] Systolic blood pressure 2024-03-05 02:30:00 143 mm[Hg] [facility] Diastolic blood pressure 2024-03-05 02:30:00 109 mm[Hg] [facility] Heart rate 2024-03-05 02:30:00 94 /min [facility] Respiratory rate 2024-03-05 02:30:00 18 /min [facility] Oxygen saturation in Arterial blood by Pulse oximetry 2024-03-05 02:30:00 98 /min [facility] Body temperature 2024-03-05 00:34:[address] [facility] Body height 2024-03-05 00:34:00 188 cm [facility] Body weight 2024-03-05 00:34:00 142.883 kg [facility] BMI 2024-03-05 00:34:00 40.44 kg/m2 [facility] Systolic blood pressure 2024-01-05 18:35:00 133 mm[Hg] [facility] Diastolic blood pressure 2024-01-05 18:35:00 90 mm[Hg] [facility] Heart rate 2024-01-05 18:35:00 135 /min [facility] Body height 2024-01-05 18:35:00 188 cm [facility] Body weight 2024-01-05 18:35:00 136.351 kg [facility] BMI 2024-01-05 18:35:00 38.59 kg/m2 [facility] Oxygen saturation in Arterial blood by Pulse oximetry 2024-01-05 18:35:00 99 /min [facility] Systolic blood pressure 2023-11-18 19:41:00 124 mm[Hg] [facility] Diastolic blood pressure 2023-11-18 19:41:00 87 mm[Hg] [facility] Heart rate 2023-11-18 19:41:00 88 /min [facility] Body temperature 2023-11-18 19:41:[address] [facility] Body height 2023-11-18 19:41:00 188 cm [facility] Body weight 2023-11-18 19:41:00 140.615 kg [facility] BMI 2023-11-18 19:41:00 39.80 kg/m2 [facility] Oxygen saturation in Arterial blood by Pulse oximetry 2023-11-18 19:41:00 96 /min [facility] Systolic blood pressure 2023-09-02 19:36:00 125 mm[Hg] [facility] Diastolic blood pressure 2023-09-02 19:36:00 73 mm[Hg] [facility] Heart rate 2023-09-02 19:36:00 80 /min [facility] Body height 2023-09-02 19:36:00 190.5 cm [facility] Body weight 2023-09-02 19:36:00 137.576 kg [facility] BMI 2023-09-02 19:36:00 37.91 kg/m2 [facility] Oxygen saturation in Arterial blood by Pulse oximetry 2023-09-02 19:36:00 98 /min [facility] Systolic blood pressure 2023-05-01 15:43:00 130 mm[Hg] [facility] Diastolic blood pressure 2023-05-01 15:43:00 90 mm[Hg] [facility] Heart rate 2023-05-01 15:43:00 82 /min [facility] Body temperature 2023-05-01 15:43:[address] [facility] Respiratory rate 2023-05-01 15:43:00 18 /min [facility] Body height 2023-05-01 15:43:00 188 cm [facility] Body weight 2023-05-01 15:43:00 139.708 kg [facility] BMI 2023-05-01 15:43:00 39.54 kg/m2 [facility] Oxygen saturation in Arterial blood by Pulse oximetry 2023-05-01 15:43:00 97 /min [facility] Systolic blood pressure 2023-04-09 14:58:00 122 mm[Hg] [facility] Diastolic blood pressure 2023-04-09 14:58:00 88 mm[Hg] [facility] Heart rate 2023-04-09 14:58:00 77 /min [facility] Body temperature 2023-04-09 14:58:[address] [facility] Respiratory rate 2023-04-09 14:58:00 18 /min [facility] Body weight 2023-04-09 14:58:00 143.337 kg [facility] BMI 2023-04-09 14:58:00 42.86 kg/m2 [facility] Oxygen saturation in Arterial blood by Pulse oximetry 2023-04-09 14:58:00 97 /min [facility] Systolic blood pressure 2023-03-28 01:00:00 126 mm[Hg] [facility] Diastolic blood pressure 2023-03-28 01:00:00 110 mm[Hg] [facility] Heart rate 2023-03-28 01:00:00 94 /min [facility] Body temperature 2023-03-28 01:00:[address] [facility] Respiratory rate 2023-03-28 01:00:00 18 /min [facility] Oxygen saturation in Arterial blood by Pulse oximetry 2023-03-28 01:00:00 98 /min [facility] Systolic blood pressure 2022-10-27 15:47:00 124 mm[Hg] [facility] Diastolic blood pressure 2022-10-27 15:47:00 85 mm[Hg] [facility] Heart rate 2022-10-27 15:47:00 76 /min [facility] Respiratory rate 2022-10-27 15:47:00 20 /min [facility] Body height 2022-10-27 15:47:00 182.9 cm [facility] Body weight 2022-10-27 15:47:00 135.626 kg [facility] BMI 2022-10-27 15:47:00 40.55 kg/m2 [facility] Oxygen saturation in Arterial blood by Pulse oximetry 2022-10-27 15:47:00 98 /min [facility] Systolic blood pressure 2022-09-24 15:52:00 110 mm[Hg] [facility] Diastolic blood pressure 2022-09-24 15:52:00 79 mm[Hg] [facility] Heart rate 2022-09-24 15:52:00 77 /min [facility] Body temperature 2022-09-24 15:52:[address] [facility] Respiratory rate 2022-09-24 15:52:00 18 /min [facility] Body height 2022-09-24 15:52:00 188 cm [facility] Body weight 2022-09-24 15:52:00 133.358 kg [facility] BMI 2022-09-24 15:52:00 37.75 kg/m2 [facility] Oxygen saturation in Arterial blood by Pulse oximetry 2022-09-24 15:52:00 94 /min [facility] Systolic blood pressure 2022-08-21 15:52:00 124 mm[Hg] [facility] Diastolic blood pressure 2022-08-21 15:52:00 89 mm[Hg] [facility] Heart rate 2022-08-21 15:52:00 89 /min [facility] Respiratory rate 2022-08-21 15:52:00 20 /min [facility] Body height 2022-08-21 15:52:00 188 cm [facility] Body weight 2022-08-21 15:52:00 134.265 kg [facility] BMI 2022-08-21 15:52:00 38.00 kg/m2 [facility] Oxygen saturation in Arterial blood by Pulse oximetry 2022-08-21 15:52:00 98 /min [facility] Systolic blood pressure 2022-08-21 15:39:00 124 mm[Hg] [facility] Diastolic blood pressure 2022-08-21 15:39:00 89 mm[Hg] [facility] Heart rate 2022-08-21 15:39:00 89 /min [facility] Respiratory rate 2022-08-21 15:39:00 20 /min [facility] Body height 2022-08-21 15:39:00 188 cm [facility] Body weight 2022-08-21 15:39:00 134.446 kg [facility] BMI 2022-08-21 15:39:00 38.06 kg/m2 [facility] Oxygen saturation in Arterial blood by Pulse oximetry 2022-08-21 15:39:00 98 /min [facility] Systolic blood pressure 2022-06-09 23:56:00 136 mm[Hg] [facility] Diastolic blood pressure 2022-06-09 23:56:00 99 mm[Hg] [facility] Heart rate 2022-06-09 23:56:00 98 /min [facility] Body temperature 2022-06-09 22:12:[address] [facility] Respiratory rate 2022-06-09 22:12:00 18 /min [facility] Oxygen saturation in Arterial blood by Pulse oximetry 2022-06-09 22:12:00 98 /min [facility] Body weight 2022-06-09 09:22:00 130.999 kg [facility] BMI 2022-06-09 09:22:00 37.08 kg/m2 [facility] Body height 2022-06-06 00:36:00 188 cm [facility] Systolic blood pressure 2022-06-04 12:45:00 139 mm[Hg] [facility] Diastolic blood pressure 2022-06-04 12:45:00 111 mm[Hg] [facility] Heart rate 2022-06-04 12:45:00 92 /min [facility] Body temperature 2022-06-04 12:45:[address] [facility] Respiratory rate 2022-06-04 12:45:00 18 /min [facility] Body height 2022-06-04 12:45:00 188 cm [facility] Body weight 2022-06-04 12:45:00 131.543 kg [facility] BMI 2022-06-04 12:45:00 37.23 kg/m2 [facility] Oxygen saturation in Arterial blood by Pulse oximetry 2022-06-04 12:45:00 96 /min [facility] Systolic blood pressure 2022-06-03 15:32:00 126 mm[Hg] [facility] Diastolic blood pressure 2022-06-03 15:32:00 86 mm[Hg] [facility] Heart rate 2022-06-03 15:32:00 81 /min [facility] Respiratory rate 2022-06-03 15:32:00 18 /min [facility] Body temperature 2022-06-03 12:13:[address] [facility] Oxygen saturation in Arterial blood by Pulse oximetry 2022-06-03 12:13:00 99 /min [facility] Body weight 2022-06-03 11:00:00 144.516 kg [facility] BMI 2022-06-03 11:00:00 40.91 kg/m2 [facility] Body height 2022-06-01 21:33:00 188 cm [facility] Systolic blood pressure 2022-05-28 16:20:00 149 mm[Hg] [facility] Diastolic blood pressure 2022-05-28 16:20:00 108 mm[Hg] [facility] Respiratory rate 2022-05-28 16:20:00 22 /min [facility] Oxygen saturation in Arterial blood by Pulse oximetry 2022-05-28 16:20:00 99 /min [facility] Body temperature 2022-05-22 20:00:[address] [facility] Systolic blood pressure 2022-05-22 19:00:00 139 mm[Hg] [facility] Diastolic blood pressure 2022-05-22 19:00:00 100 mm[Hg] [facility] Heart rate 2022-05-22 19:00:00 101 /min [facility] Respiratory rate 2022-05-22 19:00:00 18 /min [facility] Oxygen saturation in Arterial blood by Pulse oximetry 2022-05-22 19:00:00 98 /min [facility] Body weight 2022-05-22 15:52:00 141.069 kg [facility] BMI 2022-05-22 15:52:00 39.93 kg/m2 [facility] Body height 2022-05-22 15:49:00 188 cm [facility] Systolic blood pressure 2022-05-20 18:00:00 133 mm[Hg] [facility] Diastolic blood pressure 2022-05-20 18:00:00 81 mm[Hg] [facility] Heart rate 2022-05-20 18:00:00 92 /min [facility] Oxygen saturation in Arterial blood by Pulse oximetry 2022-05-20 18:00:00 97 /min [facility] Respiratory rate 2022-05-20 17:30:00 18 /min [facility] Body temperature 2022-05-20 17:00:[address] [facility] Body weight 2022-05-20 17:00:00 141.069 kg [facility] BMI 2022-05-20 17:00:00 39.93 kg/m2 [facility] Systolic blood pressure 2022-05-20 13:51:00 133 mm[Hg] [facility] Diastolic blood pressure 2022-05-20 13:51:00 102 mm[Hg] [facility] Heart rate 2022-05-20 13:49:00 105 /min [facility] Body height 2022-05-20 13:49:00 188 cm [facility] Body weight 2022-05-20 13:49:00 141.341 kg [facility] BMI 2022-05-20 13:49:00 40.01 kg/m2 [facility] Oxygen saturation in Arterial blood by Pulse oximetry 2022-05-20 13:49:00 97 /min [facility] Systolic blood pressure 2022-05-19 19:02:00 135 mm[Hg] [facility] Diastolic blood pressure 2022-05-19 19:02:00 95 mm[Hg] [facility] Heart rate 2022-05-19 19:02:00 94 /min [facility] Body temperature 2022-05-19 19:02:[address] [facility] Respiratory rate 2022-05-19 19:02:00 18 /min [facility] Body height 2022-05-19 19:02:00 188 cm [facility] Body weight 2022-05-19 19:02:00 143.291 kg [facility] BMI 2022-05-19 19:02:00 40.56 kg/m2 [facility] Oxygen saturation in Arterial blood by Pulse oximetry 2022-05-19 19:02:00 98 /min [facility] Systolic blood pressure 2022-05-15 16:25:00 132 mm[Hg] [facility] Diastolic blood pressure 2022-05-15 16:25:00 87 mm[Hg] [facility] Heart rate 2022-05-15 16:25:00 87 /min [facility] Body temperature 2022-05-15 16:25:[address] [facility] Respiratory rate 2022-05-15 16:25:00 20 /min [facility] Oxygen saturation in Arterial blood by Pulse oximetry 2022-05-15 16:25:00 97 /min [facility] Body height 2022-05-11 16:18:00 188 cm [facility] Body weight 2022-05-11 16:18:00 144.697 kg [facility] BMI 2022-05-11 16:18:00 40.96 kg/m2 [facility] Systolic blood pressure 2022-05-09 21:30:00 156 mm[Hg] [facility] Diastolic blood pressure 2022-05-09 21:30:00 106 mm[Hg] [facility] Heart rate 2022-05-09 21:30:00 92 /min [facility] Respiratory rate 2022-05-09 21:30:00 16 /min [facility] Oxygen saturation in Arterial blood by Pulse oximetry 2022-05-09 21:30:00 99 /min [facility] Body temperature 2022-05-09 19:08:[address] [facility] Body height 2022-05-09 19:08:00 188 cm [facility] Body weight 2022-05-09 19:08:00 147.419 kg [facility] BMI 2022-05-09 19:08:00 41.73 kg/m2 [facility] Systolic blood pressure 2022-05-09 18:25:00 181 mm[Hg] [facility] Diastolic blood pressure 2022-05-09 18:25:00 129 mm[Hg] [facility] Heart rate 2022-05-09 18:25:00 110 /min [facility] Respiratory rate 2022-05-09 18:25:00 18 /min [facility] Body height 2022-05-09 18:25:00 188 cm [facility] Body weight 2022-05-09 18:25:00 147.374 kg [facility] BMI 2022-05-09 18:25:00 41.71 kg/m2 [facility] Oxygen saturation in Arterial blood by Pulse oximetry 2022-05-09 18:25:00 100 /min [facility] Systolic blood pressure 2022-05-06 12:38:00 122 mm[Hg] [facility] Diastolic blood pressure 2022-05-06 12:38:00 88 mm[Hg] [facility] Heart rate 2022-05-06 12:38:00 90 /min [facility] Body temperature 2022-05-06 12:38:[address] [facility] Respiratory rate 2022-05-06 12:38:00 16 /min [facility] Oxygen saturation in Arterial blood by Pulse oximetry 2022-05-06 12:38:00 96 /min [facility] Body weight 2022-05-06 07:48:00 145.469 kg [facility] BMI 2022-05-06 07:48:00 41.18 kg/m2 [facility] Body height 2022-05-06 01:06:00 188 cm [facility] Systolic blood pressure 2022-04-30 16:00:00 116 mm[Hg] [facility] Diastolic blood pressure 2022-04-30 16:00:00 81 mm[Hg] [facility] Heart rate 2022-04-30 16:00:00 84 /min [facility] Body temperature 2022-04-30 13:11:[address] [facility] Respiratory rate 2022-04-30 13:11:00 18 /min [facility] Oxygen saturation in Arterial blood by Pulse oximetry 2022-04-30 13:11:00 96 /min [facility] Body weight 2022-04-30 09:16:00 147.963 kg [facility] BMI 2022-04-30 09:16:00 41.88 kg/m2 [facility] Body height 2022-04-29 15:31:00 188 cm [facility] Systolic blood pressure 2022-04-28 18:30:00 153 mm[Hg] [facility] Diastolic blood pressure 2022-04-28 18:30:00 116 mm[Hg] [facility] Heart rate 2022-04-28 18:30:00 111 /min [facility] Respiratory rate 2022-04-28 18:30:00 18 /min [facility] Body height 2022-04-28 18:30:00 188 cm [facility] Body weight 2022-04-28 18:30:00 146.965 kg [facility] BMI 2022-04-28 18:30:00 41.60 kg/m2 [facility] Oxygen saturation in Arterial blood by Pulse oximetry 2022-04-28 18:30:00 96 /min [facility] Systolic blood pressure 2022-04-23 16:32:00 123 mm[Hg] [facility] Diastolic blood pressure 2022-04-23 16:32:00 88 mm[Hg] [facility] Heart rate 2022-04-23 16:32:00 85 /min [facility] Body temperature 2022-04-23 16:32:[address] [facility] Respiratory rate 2022-04-23 16:32:00 18 /min [facility] Oxygen saturation in Arterial blood by Pulse oximetry 2022-04-23 16:32:00 98 /min [facility] Body weight 2022-04-23 08:33:00 142.475 kg [facility] BMI 2022-04-23 08:33:00 40.33 kg/m2 [facility] Body height 2022-04-22 17:53:00 188 cm [facility] Systolic blood pressure 2022-04-17 12:19:00 111 mm[Hg] [facility] Diastolic blood pressure 2022-04-17 12:19:00 78 mm[Hg] [facility] Heart rate 2022-04-17 12:19:00 99 /min [facility] Body temperature 2022-04-17 12:19:[address] [facility] Respiratory rate 2022-04-17 12:19:00 18 /min [facility] Body height 2022-04-17 12:19:00 188 cm [facility] Body weight 2022-04-17 12:19:00 144.697 kg [facility] BMI 2022-04-17 12:19:00 40.96 kg/m2 [facility] Oxygen saturation in Arterial blood by Pulse oximetry 2022-04-17 12:19:00 99 /min [facility] Systolic blood pressure 2022-04-15 20:00:00 157 mm[Hg] [facility] Diastolic blood pressure 2022-04-15 20:00:00 89 mm[Hg] [facility] Heart rate 2022-04-15 20:00:00 102 /min [facility] Respiratory rate 2022-04-15 20:00:00 19 /min [facility] Oxygen saturation in Arterial blood by Pulse oximetry 2022-04-15 20:00:00 99 /min [facility] Body temperature 2022-04-15 18:41:[address] [facility] Body height 2022-04-15 18:41:00 188 cm [facility] Body weight 2022-04-15 18:41:00 145.151 kg [facility] BMI 2022-04-15 18:41:00 41.09 kg/m2 [facility] Systolic blood pressure 2022-03-26 19:15:00 125 mm[Hg] [facility] Diastolic blood pressure 2022-03-26 19:15:00 89 mm[Hg] [facility] Heart rate 2022-03-26 19:15:00 99 /min [facility] Respiratory rate 2022-03-26 19:15:00 18 /min [facility] Body weight 2022-03-26 19:15:00 144.697 kg [facility] BMI 2022-03-26 19:15:00 40.96 kg/m2 [facility] Oxygen saturation in Arterial blood by Pulse oximetry 2022-03-26 19:15:00 97 /min [facility] Systolic blood pressure 2024-08-26 20:29:00 104 mm[Hg] [facility] Diastolic blood pressure 2024-08-26 20:29:00 74 mm[Hg] [facility] Heart rate 2024-08-26 20:29:00 81 /min [facility] Body temperature 2024-08-26 20:29:[address] [facility] Body weight 2024-08-26 20:29:00 128.368 kg [facility] BMI 2024-08-26 20:29:00 36.34 kg/m2 [facility] Oxygen saturation in Arterial blood by Pulse oximetry 2024-08-26 20:29:00 97 /min [facility] Respiratory rate 2024-08-19 21:00:00 14 /min [facility] Body height 2024-08-19 01:05:00 188 cm [facility] Systolic blood pressure 2024-08-13 17:46:00 121 mm[Hg] [facility] Diastolic blood pressure 2024-08-13 17:46:00 86 mm[Hg] [facility] Heart rate 2024-08-13 17:46:00 72 /min [facility] Body temperature 2024-08-13 17:46:[address] [facility] Respiratory rate 2024-08-13 17:46:00 20 /min [facility] Oxygen saturation in Arterial blood by Pulse oximetry 2024-08-13 17:46:00 96 /min [facility] Body weight 2024-08-13 04:08:00 128.822 kg [facility] BMI 2024-08-13 04:08:00 36.46 kg/m2 [facility] Body height 2024-08-12 20:53:14 188 cm [facility] Procedures Procedure Date / Time Performed Performing Clinician Source URINALYSIS 2024-10-05 00:39:00 [facility] TROPONIN I 2024-10-04 23:44:00 [facility] COMP. METABOLIC PANEL (91125) 2024-10-04 23:44:00 [facility] CBC WITH DIFF 2024-10-04 23:44:[address] [facility] [address] HEAD WO CONTRAST 2024-10-04 23:13:21 [facility] COMPREHENSIVE METABOLIC PANEL 2024-10-03 03:06:00 Kevin Chi [facility] Epic MAGNESIUM LEVEL 2024-10-03 03:06:00 Chalino Costello [facility] Epic PHOSPHORUS LEVEL 2024-10-03 03:06:00 Chalino Costello [facility] COMPLETE BLOOD COUNT W/DIFF AND PLATELET 2024-10-03 03:06:[address] [facility] Epic DRUG SCREEN URINE (10 DRUG) 2024-10-03 03:06:00 Chalino Costello [facility] Epic PT AND PTT 2024-10-03 03:06:00 Chalino Costello [facility] Epic COMPLETE BLOOD COUNT 2024-10-03 03:06:00 Chalino Costello [facility] Epic AUTOMATED DIFFERENTIAL 2024-10-03 03:06:00 Chalino Costello [facility] Epic PT AND PTT 2024-10-02 17:03:00 Milan Valverde [facility] Epic PT AND PTT 2024-10-02 09:20:00 Milan Valverde [facility] COMPREHENSIVE METABOLIC PANEL 2024-10-02 03:24:00 Pravin, [facility] LIPID PANEL W/CALCULATED LDL 2024-10-02 03:24:00 Pravin, [facility] HEMOGLOBIN A1C 2024-10-02 03:24:00 Pravin, [facility] MAGNESIUM LEVEL 2024-10-02 03:24:00 Pravin, [facility] PHOSPHORUS LEVEL 2024-10-02 03:24:00 Pravin, [facility] COMPLETE BLOOD COUNT W/DIFF AND PLATELET 2024-10-02 03:24:00 Pravin, [facility] PT AND PTT 2024-10-02 03:24:00 Pravin, [facility] COMPLETE BLOOD COUNT 2024-10-02 03:24:00 Pravin, [facility] AUTOMATED DIFFERENTIAL 2024-10-02 03:24:00 Pravin, [facility] RT eval and treat 2024-10-02 00:00:00 [facility] PT AND PTT 2024-10-01 20:26:00 Milan Valverde [facility] TRANSTHORACIC ECHO (TTE) COMPLETE W/ CONTRAST 2024-10-01 18:20:00 Pravin, Chalino [facility] CARDIAC DEVICE CHECK - INPATIENT - ICD BIVENTRICULAR CHAMBER W/ PROG 2024-10-01 14:33:40 Pravin, [facility] PRO-BRAIN NATRIURETIC PEPTIDE (PRO-BNP) 2024-10-01 14:07:00 Pravin, [facility] THYROID PANEL 2024-10-01 14:07:00 Pravin, [facility] COMPREHENSIVE METABOLIC PANEL 2024-10-01 13:42:00 Pravin, [facility] LACTIC ACID LEVEL 2024-10-01 13:42:00 Pravin, [facility] MAGNESIUM LEVEL 2024-10-01 13:42:00 Pravin, [facility] PHOSPHORUS LEVEL 2024-10-01 13:42:00 Pravin, [facility] COMPLETE BLOOD COUNT W/DIFF AND PLATELET 2024-10-01 13:42:[address] [facility] TROPONIN I HIGH SENSITIVITY (SINGLE ORDER) 2024-10-01 13:42:[address] [facility] COMPLETE BLOOD COUNT 2024-10-01 13:42:[address] [facility] AUTOMATED DIFFERENTIAL 2024-10-01 13:42:[address] [facility] PT AND PTT 2024-10-01 13:41:[address] [facility] XR CHEST 2 VIEWS 2024-10-01 12:19:39 BreanneShad [facility] CORONAVIRUS (COVID-19) FLU RSV CONNER 2024-10-01 00:56:00 Meli [facility] AMMONIA LEVEL 2024-10-01 00:55:00 Meli [facility] TROPONIN I HIGH SENSITIVITY CARESET (1ST HR) 2024-10-01 00:55[facility] 2024-10-01 00:00:[address] [facility] [address] ANGIOGRAM CHEST - AORTA 2024-09-30 23:45:51 Jose Mahan [facility] CT BRAIN WO IV CONTRAST 2024-09-30 23:45:30 Jose Mahan [facility] XR CHEST 1 VIEW 2024-09-30 22:07:34 Jose Mahan [facility] BASIC METABOLIC PANEL 2024-09-30 21:55:00 Jose Mahan [facility] HEPATIC FUNCTION PANEL 2024-09-30 21:55:00 Meli [facility] BLOOD GAS, VENOUS 2024-09-30 21:55[facility] 2024-09-30 21:55:00 Meli [facility] B-TYPE NATRIURETIC PEPTIDE 2024-09-30 21:55:00 Jose Mahan [facility] PHOSPHORUS LEVEL 2024-09-30 21:55:00 Figueroa Garrison [facility] COMPLETE BLOOD COUNT W/DIFF AND PLATELET 2024-09-30 21:55:00 Goay, Jose Zapata [facility] PROTIME-INR 2024-09-30 21:55:00 Goay, Jose Zapata [facility] PTT 2024-09-30 21:55:00 [facility] HIGH SENSITIVITY CARESET 2024-09-30 21:55:00 Goay, Jose [facility] TROPONIN I HIGH SENSITIVITY CARESET (BASELINE) 2024-09-30 21:55:00 Goay, Jose [facility] LACTIC ACID WITH 2 HOUR REFLEX 2024-09-30 21:55:00 [facility] 2024-09-30 21:55:00 Goay, Jose [facility] AUTOMATED DIFFERENTIAL 2024-09-30 21:55:00 [facility]AD 2024-09-30 21:53:47 Goay, Jose [facility] TROPONIN I 2024-09-20 17:17:00 [facility] MAGNESIUM 2024-09-20 10:35:00 [facility] TROPONIN I 2024-09-20 10:35:00 [facility] HEPATIC FUNCTION PANEL (68030) (ALB,T.PRO,BILI T,BU/BC,ALT,AST,ALK PHOS) 2024-09-20 10:35:00 [facility] BASIC METABOLIC PANEL (NA, K, CL, CO2, GLUCOSE, BUN, CREATININE, CA) 2024-09-20 10:35:00 [facility] N-TERMINAL PRO-BNP 2024-09-20 10:35:00 [facility] TROPONIN I 2024-09-20 05:20:00 [facility] TROPONIN I 2024-09-19 22:51:00 [facility] XR CHEST 1 VW 2024-09-19 19:50:39 [facility]19 18:51[facility]00 [facility] (IMMUNOASSAY) - COMPREHENSIVE DRUG SCREEN W/O REFLEX 2024-09-19 18:51:00 [facility] FENTANYL (IMMUNOASSAY) 2024-09-19 18:51:00 [facility] 2024-09-19 17:11:00 Lindsey Myers [facility] TROPONIN I 2024-09-19 17:11:00 [facility] COMP. METABOLIC PANEL (65047) 2024-09-19 17:11:00 Lindsey Myers [facility] CBC WITH DIFF 2024-09-19 17:11:00 Lindsye Myers [facility] INFLUENZA A/B RSV COVID NAAT 2024-09-19 17:11:00 Lindsey Myers [facility] N-TERMINAL PRO-BNP 2024-09-19 17:11:00 [facility] ROUTINE & RHYTHM STRIP 2024-09-19 16:42:39 Lindsey Myers [facility] TROPONIN I 2024-09-18 23:00:00 [facility] TROPONIN I 2024-09-18 20:43:00 [facility] BASIC METABOLIC PANEL (NA, K, CL, CO2, GLUCOSE, BUN, CREATININE, CA) 2024-09-18 20:43:00 [facility] CBC WITH DIFF 2024-09-18 20:43:00 [facility] POCT GLUCOSE (AUTOMATED) 2024-08-19 17:40:00 [facility] POCT GLUCOSE (AUTOMATED) 2024-08-19 17:40:[address] [facility] TRANSTHORACIC ECHO (TTE) LIMITED W/ CONTRAST 2024-08-19 16:16:[address] [facility] TROPONIN I 2024-08-19 09:46:[address] [facility] LIPID PANEL (66325)(TOTAL CHOLESTEROL, TRIGLYCERIDES, HDL) 2024-08-19 09:46:[address] [facility] PROTHROMBIN TIME / INR 2024-08-19 09:46:[address] [facility] ACTIVATED PARTIAL THRMPLAS MILKA 2024-08-19 09:46:[address] [facility] N-TERMINAL PRO-BNP 2024-08-19 09:46:[address] [facility] PROTHROMBIN TIME / INR 2024-08-19 09:46:[address] [facility] ACTIVATED PARTIAL THRMPLAS MILKA 2024-08-19 09:46:[address] [facility] TROPONIN I 2024-08-19 09:46:[address] [facility] LIPID PANEL ([id number])(TOTAL CHOLESTEROL, TRIGLYCERIDES, HDL) 2024-08-19 09:46:[address] [facility] C-REACTIVE PROTEIN 2024-08-19 09:46:[address] [facility] N-TERMINAL PRO-BNP 2024-08-19 09:46:[address] [facility] EKG-12 LEAD 2024-08-19 04:56:28 Martínez [facility] TROPONIN I 2024-08-19 01:45:00 Martínez [facility] BASIC METABOLIC PANEL (NA, K, CL, CO2, GLUCOSE, BUN, CREATININE, CA) 2024-08-19 01:45:00 Martínez [facility] CBC WITH DIFF 2024-08-19 01:45:00 Martínez [facility] N-TERMINAL PRO-BNP 2024-08-19 01:45:00 Martínez [facility] BASIC METABOLIC PANEL (NA, K, CL, CO2, GLUCOSE, BUN, CREATININE, CA) 2024-08-19 01:45:00 Martínez [facility] TROPONIN I 2024-08-19 01:45:00 Martínez [facility] N-TERMINAL PRO-BNP 2024-08-19 01:45:00 Martínez [facility] CBC WITH DIFF 2024-08-19 01:45:00 Martínez [facility] XR CHEST 1 VW 2024-08-19 01:30:00 Martínez [facility] XR CHEST 1 VW 2024-08-19 01:30:00 Martínez [facility] HB ECG ROUTINE & RHYTHM STRIP 2024-08-19 01:26:10 Martínez [facility] POCT GLUCOSE (AUTOMATED) 2024-08-15 17:45:00 [facility] POCT GLUCOSE (AUTOMATED) 2024-08-15 [facility] 2024-08-15 [facility] 2024-08-15 13:47[facility]00 [facility] ([facility]OMATED) 2024-08-15 13:47[facility] (AUTOMATED) 2024-08-15 13:47:00 [facility] MAGNESIUM 2024-08-15 11:08:00 Christiano [facility] BASIC METABOLIC PANEL (NA, K, CL, CO2, GLUCOSE, BUN, CREATININE, CA) 2024-08-15 11:08:00 Christiano [facility] CBC WITH DIFF 2024-08-15 11:08:00 Christiano [facility] MAGNESIUM 2024-08-15 11:08:00 Christiano [facility] BASIC METABOLIC PANEL (NA, K, CL, CO2, GLUCOSE, BUN, CREATININE, CA) 2024-08-15 11:08:00 Christiano [facility] CBC WITH DIFF 2024-08-15 11:08:00 Christiano [facility] CBC WITH DIFF 2024-08-15 11:08:00 [facility] BASIC METABOLIC PANEL (NA, K, CL, CO2, GLUCOSE, BUN, CREATININE, CA) 2024-08-15 11:08:00 [facility]UM 2024-08-15 11:08:00 Christiano [facility] POCT GLUCOSE (AUTOMATED) 2024-08-15 02:31:00 [facility] POCT GLUCOSE (AUTOMATED) 2024-08-15 02:31:00 [facility] POCT GLUCOSE (AUTOMATED) 2024-08-15 02:31:00 [facility]) 2024-08-14 23:23:00 [facility] POCT GLUCOSE (AUTOMATED) 2024-08-14 23:23:00 [facility] POCT GLUCOSE (AUTOMATED) 2024-08-14 23:23:00 [facility] POCT GLUCOSE (AUTOMATED) 2024-08-14 18:35:00 [facility] ([facility]OMATED) 2024-08-14 18:35:00 [facility] POCT GLUCOSE (AUTOMATED) 2024-08-14 18:35:00 [facility] MAGNESIUM 2024-08-14 15:10:00 Christiano [facility] BASIC METABOLIC PANEL (NA, K, CL, CO2, GLUCOSE, BUN, CREATININE, CA) 2024-08-14 15:10:00 Christiano [facility] MAGNESIUM 2024-08-14 15:10:00 Christiano [facility] BASIC METABOLIC PANEL (NA, K, CL, CO2, GLUCOSE, BUN, CREATININE, CA) 2024-08-14 15:10:00 Alvarado, [facility] BASIC METABOLIC PANEL (NA, K, CL, CO2, GLUCOSE, BUN, CREATININE, CA) 2024-08-14 15:10:00 Christiano [facility] MAGNESIUM 2024-08-14 15:10:00 Christiano [facility] POCT GLUCOSE (AUTOMATED) 2024-08-14 14:45:00 [facility] POCT GLUCOSE (AUTOMATED) 2024-08-14 14:45:00 [facility] POCT GLUCOSE (AUTOMATED) 2024-08-14 14:45:00 [facility] (AUTOMATED) 2024-08-14 03:14:00 [facility]SE (AUTOMATED) 2024-08-14 03:14:00 [facility]SE (AUTOMATED) 2024-08-14 03:14:00 [facility] PO[facility]SE (AUTOMATED) 2024-08-13 19:09:00 [facility] PO[facility]SE (AUTOMATED) 2024-08-13 19:09:00 [facility] POCT GLUCOSE (AUTOMATED) 2024-08-13 19:09[facility] RHYTHM STRIP 2024-08-13 18:11:45 Christiano [facility] POCT GLUCOSE (AUTOMATED) 2024-08-13 14:45:00 [facility] POCT GLUCOSE (AUTOMATED) 2024-08-13 14:45:00 [facility]SE (AUTOMATED) 2024-08-13 14:45:00 [facility] CATH PROCED[facility] LOG 2024-08-13 02:44:05 Martina Walls [facility] CATH PROCEDURE LOG 2024-08-13 02:44:05 Martina Walls [facility] CATH PROCEDURE LOG 2024-08-13 02:44:05 Martina Walls [facility] ELECTROPHYSIOLOGY PROCEDURE 2024-08-13 02:26:34 [facility] 2024-08-13 02:26:34 Vlad [facility] ELECTROPHYSIOLOGY PROCEDURE 2024-08-13 02:26:34 Vlad [facility] INTUBATION 2024-08-13 01:37:00 Cande Marley [facility] TRANSESOPHAGEAL ECHO (JOSE) COMPLETE W/ DOPPLER AND COLOR 2024-08-12 21:20:57 Martina Walls [facility] TRANSESOPHAGEAL ECHO (JOSE) COMPLETE W/ DOPPLER AND COLOR 2024-08-12 21:20:57 Martina Walls [facility] TRANSESOPHAGEAL ECHO (JOSE) COMPLETE W/ DOPPLER AND COLOR 2024-08-12 21:20:57 Martina Walls [facility] ARTERIAL LINE 2024-08-12 13:30:00 Cande Marley [facility] CBC WITH DIFF 2024-08-12 08:25:00 Luisa [facility] MAGNESIUM 2024-08-12 08:25:00 [facility] PAN[facility] (NA, K, CL, CO2, GLUCOSE, BUN, CREATININE, CA) 2024-08-12 08:25:00 [facility]IT[facility]OG[facility], URINE RANDOM 2024-08-12 08:25:00 Jose Pan [facility] CREATININE, URINE RANDOM 2024-08-12 08:25:00 Jose Pan [facility] ACTIVATED PARTIAL THRMPLAS MILKA 2024-08-12 08:25:[address] [facility] MAGNESIUM 2024-08-12 08:25:00 [facility] BASIC METABOLIC PANEL (NA, K, CL, CO2, GLUCOSE, BUN, CREATININE, CA) 2024-08-12 08:25:00 Luisa [facility] CBC WITH DIFF 2024-08-12 08:25:00 Luisa [facility] ACTIVATED PARTIAL THRMPLAS MILKA 2024-08-12 08:25:[address] [facility] CREATININE, URINE RANDOM 2024-08-12 08:25:00 Jose Pan [facility] UREA NITROGEN, URINE RANDOM 2024-08-12 08:25:00 Jose Pan [facility] MAGNESIUM 2024-08-12 08:25:00 Luisa [facility] BASIC METABOLIC PANEL (NA, K, CL, CO2, GLUCOSE, BUN, CREATININE, CA) 2024-08-12 08:25:00 Luisa [facility] CBC WITH DIFF 2024-08-12 08:25:00 Luisa [facility] ACTIVATED PARTIAL THRMPLAS MILKA 2024-08-12 08:25:00 [facility] CREATININE, URINE RANDOM 2024-08-12 08:25:00 Jose Pan [facility] UREA NITROGEN, URINE RANDOM 2024-08-12 08:25:00 Jose Pan [facility] HB ECG ROUTINE & RHYTHM STRIP 2024-08-11 22:15:17 Luisa [facility] HB ECG ROUTINE & RHYTHM STRIP 2024-08-11 22:15:17 Luisa [facility] HB ECG ROUTINE & RHYTHM STRIP 2024-08-11 22:15:17 Luisa [facility] TRANSTHORACIC ECHO (TTE) LIMITED W/ CONTRAST 2024-08-11 22:09:23 Niur[facility] TRANSTHORACIC ECHO (TTE) LIMITED W/ CONTRAST 2024-08-11 22:09:23 Niurka [facility] TRANSTHORACIC ECHO (TTE) LIMITED W/ CONTRAST 2024-08-11 22:09:[address] [facility] ACTIVATED PARTIAL THRMPLAS MILKA 2024-08-11 19:34:00 [facility] ACTIVATED PARTIAL THRMPLAS MILKA 2024-08-11 19:34:00 [facility] ACTIVATED PARTIAL THRMPLAS MILKA 2024-08-11 19:34:00 [facility] LACTIC ACID WHOLE BLOOD 2024-08-11 12:38:00 Jose Pan [facility] LACTIC ACID WHOLE BLOOD 2024-08-11 12:38:00 Jose Pan [facility] LACTIC ACID WHOLE BLOOD 2024-08-11 12:38:00 Jose Pan [facility] CBC WITHOUT DIFF 2024-08-11 10:40:00 Is[facility] BASIC METABOLIC PANEL (NA, K, CL, CO2, GLUCOSE, BUN, CREATININE, CA) 2024-08-11 10:40:00 [facility] N-TERMINAL PRO-BNP 2024-08-11 10:40:00 [facility] ACTIVATED PARTIAL THRMPLAS MILKA 2024-08-11 10:40:[address] [facility] MAGNESIUM 2024-08-11 10:40:00 [facility] 2024-08-11 10:40:00 Luisa [facility] URIC ACID 2024-08-11 10:40:00 Kolmaira [facility] MAGNESIUM 2024-08-11 10:40:00 Luisa [facility] BASIC METABOLIC PANEL (NA, K, CL, CO2, GLUCOSE, BUN, CREATININE, CA) 2024-08-11 10:40:00 [facility] CBC WITHOUT DIFF 2024-08-11 10:40:00 [facility] ACTIVATED PARTIAL THRMPLAS MILKA 2024-08-11 10:40:[address] [facility] N-TERMINAL PRO-BNP 2024-08-11 10:40:00 [facility] URIC ACID 2024-08-11 10:40:00 Luisa [facility] MAGNESIUM 2024-08-11 10:40:00 [facility] BASIC METABOLIC PANEL (NA, K, CL, CO2, GLUCOSE, BUN, CREATININE, CA) 2024-08-11 10:40:00 [facility] CBC WITHOUT DIFF 2024-08-11 10:40:00 [facility] THRMPLAS MILKA 2024-08-11 10:40:00 [facility] N-TERMINAL PRO-BNP 2024-08-11 10:40:00 [facility] HB ECG ROUTINE & RHYTHM STRIP 2024-08-11 04:19:08 Maxim [facility] HB ECG ROUTINE & RHYTHM STRIP 2024-08-11 04:19:08 Maxim [facility] HB ECG ROUTINE & RHYTHM STRIP 2024-08-11 04:19:08 Maxim [facility] LACTIC ACID WHOLE BLOOD 2024-08-11 03:46:00 Maxim [facility] LACTIC ACID WHOLE BLOOD 2024-08-11 03:46:00 Maxim [facility] LACTIC ACID WHOLE BLOOD 2024-08-11 03:46:00 Maxim [facility] MRSA / MSSA SCREEN BY PCRSKY 2024-08-11 03:45:00 Maxim [facility] TROPONIN I 2024-08-11 03:45:00 Maxim [facility] IRON PANEL 2024-08-11 03:45:00 Maxim [facility] FERRITIN SERUM 2024-08-11 03:45:00 Maxim [facility] ACTIVATED PARTIAL THRMPLAS MILKA 2024-08-11 03:45:00 [facility] FERRITIN SERUM 2024-08-11 03:45:00 Maxim [facility] TROPONIN I 2024-08-11 03:45:00 Maxim [facility] IRON PANEL 2024-08-11 03:45:00 Maxim [facility] ACTIVATED PARTIAL THRMPLAS MILKA 2024-08-11 03:45:00 [facility] MRSA / MSSA SCREEN BY PCRSKY 2024-08-11 03:45:00 Maxim [facility] FERRITIN SERUM 2024-08-11 03:45:00 Jose Pan [facility] TROPONIN I 2024-08-11 03:45:00 Jose Pan [facility] IRON PANEL 2024-08-11 03:45:00 Jose Pan [facility] ACTIVATED PARTIAL THRMPLAS MILKA 2024-08-11 03:45:00 [facility] MRSA / MSSA SCREEN BY PCR, NARES 2024-08-11 03:45:00 Jose Pan [facility] ACTIVATED PARTIAL THRMPLAS MILKA 2024-08-10 19:59:00 [facility] ACTIVATED PARTIAL THRMPLAS MILKA 2024-08-10 19:59:00 [facility] ACTIVATED PARTIAL THRMPLAS MILKA 2024-08-10 19:59:00 [facility] CBC WITH DIFF 2024-08-10 10:24:00 [facility]OLIC PAN[facility] (NA, K, CL, CO2, GLUCOSE, BUN, CREATININE, CA) 2024-08-10 10:24:00 Santana [facility] THYROID STIMULATING HORMONE 2024-08-10 10:24:00 [facility]MIN[facility]NP 2024-08-10 10:24:00 Santana [facility] THYROID STIMULATING HORMONE 2024-08-10 10:24:00 [facility] BASIC METABOLIC PANEL (NA, K, CL, CO2, GLUCOSE, BUN, CREATININE, CA) 2024-08-10 10:24:00 Santana [facility] CBC WITH DIFF 2024-08-10 10:24:00 Edfabian [facility] N-TERMINAL PRO-BNP 2024-08-10 10:24:00 Santana [facility] THYROID STIMULATING HORMONE 2024-08-10 10:24:00 [facility] BASIC METABOLIC PANEL (NA, K, CL, CO2, GLUCOSE, BUN, CREATININE, CA) 2024-08-10 10:24:00 Santana [facility] CBC WITH DIFF 2024-08-10 10:24:00 Edionbrant [facility] N-TERMINAL PRO-BNP 2024-08-10 10:24:00 Santana [facility] ACTIVATED PARTIAL THRMPLAS MILKA 2024-08-10 08:09:00 [facility] ACTIVATED PARTIAL THRMPLAS MILKA 2024-08-10 08:09:00 [facility] ACTIVATED PARTIAL THRMPLAS MILKA 2024-08-10 08:09:00 [facility] INFLUENZA A/B RSV COVID NAAT 2024-08-10 04:54:00 Edionbrant [facility] LAB ONLY COVID INTERPRETATION 2024-08-10 04:54:00 [facility] INFLUENZA A/B RSV COVID NAAT 2024-08-10 04:54:00 [facility] LAB ONLY COVID INTERPRETATION 2024-08-10 04:54:00 [facility] INFLUENZA A/B RSV COVID NAAT 2024-08-10 04:54:00 [facility] LAB ONLY COVID INTERPRETATION 2024-08-10 04:54:00 Santana [facility] MRSA / MSSA SCREEN BY PCR, [facility] 2024-08-10 00:16:00 [facility] PROTHROMBIN TIME / INR 2024-08-10 00:16:00 [facility] PROTHROMBIN TIME / INR 2024-08-10 00:16:00 [facility] MRSA / MSSA SCREEN BY PCR, [facility] 2024-08-10 00:16:00 [facility] PROTHROMBIN TIME / INR 2024-08-10 00:16:00 [facility] MRSA / MSSA SCREEN BY PCR, [facility] 2024-08-10 00:16:00 [facility] CBC WITH DIFF 2024-08-09 18:35:[address] [facility] COMP. METABOLIC PANEL ([id number]) 2024-08-09 18:35:00 [facility]24-08-09 18:35:00 [facility] N-TERMINAL PRO-BNP 2024-08-09 18:35:[address] [facility] MAGNESIUM 2024-08-09 18:35:[address] [facility] MAGNESIUM 2024-08-09 18:35:00 [facility] 2024-08-09 18:35:00 Ruben [facility] COMP. METABOLIC PANEL ([id number]) 2024-08-09 18:35:00 [facility] WITH DIFF 2024-08-09 18:35:00 [facility] N-TERMINAL PRO-BNP 2024-08-09 18:35:00 [facility] 2024-08-09 18:35:00 [facility] 2024-08-09 18:35:00 [facility] COMP. METABOLIC PANEL ([id number]) 2024-08-09 18:35:00 Ruben [facility] CBC WITH DIFF 2024-08-09 18:35:00 Ruben [facility] N-TERMINAL PRO-BNP 2024-08-09 18:35:00 Ruben [facility] XR CHEST 1 VW 2024-08-09 18:25:00 [facility]ST 1 VW 2024-08-09 18:25:00 [facility] X[facility] CHEST 1 VW 2024-08-09 18:25:00 Rbuen [facility] HB ECG ROUTINE & RHYTHM STRIP 2024-08-09 17:46:31 Ruben [facility] HB ECG ROUTINE & RHYTHM STRIP 2024-08-09 17:46:31 Ruben [facility] HB ECG ROUTINE & RHYTHM STRIP 2024-08-09 17:46:31 Ruben [facility] CRITICAL CARE 2024-08-09 17:27:00 [facility] 2024-08-09 17:27:[address] [facility] CRITICAL CARE 2024-08-09 17:27:[address] [facility] POCT GLUCOSE (AUTOMATED) 2024-08-01 22:11:[address] [facility] POCT GLUCOSE (AUTOMATED) 2024-08-01 22:11:00 Ana [facility] POCT GLUCOSE (AUTOMATED) 2024-08-01 18:44:00 Ana [facility] POCT GLUCOSE (AUTOMATED) 2024-08-01 18:44:00 Ana [facility] POCT GLUCOSE (AUTOMATED) 2024-08-01 14:57:00 Ana [facility] POCT GLUCOSE (AUTOMATED) 2024-08-01 14:57:00 Ana [facility] MAGNESIUM 2024-08-01 11:00:[address] [facility] TROPONIN I 2024-08-01 11:00:[address] [facility] BASIC METABOLIC PANEL (NA, K, CL, CO2, GLUCOSE, BUN, CREATININE, CA) 2024-08-01 11:00:[address] [facility] CBC WITH DIFF 2024-08-01 11:00:[address] [facility] CBC WITH DIFF 2024-08-01 11:00:[address] [facility] BASIC METABOLIC PANEL (NA, K, CL, CO2, GLUCOSE, BUN, CREATININE, CA) 2024-08-01 11:00:[address] [facility] MAGNESIUM 2024-08-01 11:00:[address] [facility] TROPONIN I 2024-08-01 11:00:[address] [facility] TROPONIN I 2024-08-01 06:34:[address] [facility] TROPONIN I 2024-08-01 06:34:[address] [facility] POCT GLUCOSE (AUTOMATED) 2024-08-01 02:16:00 Abdulla, Amer [facility] POCT GLUCOSE (AUTOMATED) 2024-08-01 02:16:[address] [facility] MAGNESIUM 2024-08-01 00:41:[address] [facility] TROPONIN I 2024-08-01 00:41:[address] [facility] COMP. METABOLIC PANEL ([id number]) 2024-08-01 00:41:[address] [facility] CBC WITH DIFF 2024-08-01 00:41:00 Tan, Gian Miller [facility] PROTHROMBIN TIME / INR 2024-08-01 00:41:[address] [facility] ACTIVATED PARTIAL THRMPLAS MILKA 2024-08-01 00:41:[address] [facility] N-TERMINAL PRO-BNP 2024-08-01 00:41:[address] [facility] CBC WITH DIFF 2024-08-01 00:41:[address] [facility] COMP. METABOLIC PANEL ([id number]) 2024-08-01 00:41:[address] [facility] MAGNESIUM 2024-08-01 00:41:[address] [facility] TROPONIN I 2024-08-01 00:41:[address] [facility] N-TERMINAL PRO-BNP 2024-08-01 00:41:[address] [facility] PROTHROMBIN TIME / INR 2024-08-01 00:41:[address] [facility] ACTIVATED PARTIAL THRMPLAS MILKA 2024-08-01 00:41:[address] [facility] BASIC METABOLIC PANEL (NA, K, CL, CO2, GLUCOSE, BUN, CREATININE, CA) 2024-07-21 19:54:00 [facility] BASIC METABOLIC PANEL (NA, K, CL, CO2, GLUCOSE, BUN, CREATININE, CA) 2024-07-21 19:54:00 [facility] BASIC METABOLIC PANEL (NA, K, CL, CO2, GLUCOSE, BUN, CREATININE, CA) 2024-07-21 19:54:[address] [facility] POCT GLUCOSE (AUTOMATED) 2024-07-21 17:07:[address] [facility] POCT GLUCOSE (AUTOMATED) 2024-07-21 17:07:[address] [facility] POCT GLUCOSE (AUTOMATED) 2024-07-21 17:07:[address] [facility] POCT GLUCOSE (AUTOMATED) 2024-07-21 15:11:[address] [facility] POCT GLUCOSE (AUTOMATED) 2024-07-21 15:11:00 Gino [facility] POCT GLUCOSE (AUTOMATED) 2024-07-21 15:11:00 Gino Rico [facility] HB ECG ROUTINE & RHYTHM STRIP 2024-07-21 13:59:[address] [facility] HB ECG ROUTINE & RHYTHM STRIP 2024-07-21 13:59:[address] [facility] HB ECG ROUTINE & RHYTHM STRIP 2024-07-21 13:59:[address] [facility] MAGNESIUM 2024-07-21 09:22:00 Jose De Jesus [facility] BASIC METABOLIC PANEL (NA, K, CL, CO2, GLUCOSE, BUN, CREATININE, CA) 2024-07-21 09:22:00 Jose De Jesus ilia [facility] CBC WITHOUT DIFF 2024-07-21 09:22:00 Jose De Jesus [facility] PROTHROMBIN TIME / INR 2024-07-21 09:22:[address] [facility] MAGNESIUM 2024-07-21 09:22:00 Jose De Jesus [facility] BASIC METABOLIC PANEL (NA, K, CL, CO2, GLUCOSE, BUN, CREATININE, CA) 2024-07-21 09:22:00 Jose De Jesus [facility] CBC WITHOUT DIFF 2024-07-21 09:22:00 Madhukar, Niyata [facility] PROTHROMBIN TIME / INR 2024-07-21 09:22:[address] [facility] PROTHROMBIN TIME / INR 2024-07-21 09:22:[address] [facility] BASIC METABOLIC PANEL (NA, K, CL, CO2, GLUCOSE, BUN, CREATININE, CA) 2024-07-21 09:22:[address] [facility] MAGNESIUM 2024-07-21 09:22:00 [facility] CBC WITHOUT DIFF 2024-07-21 09:22:00 [facility] POCT GLUCOSE (AUTOMATED) 2024-07-21 02:51:[address] [facility] POCT GLUCOSE (AUTOMATED) 2024-07-21 02:51:[address] [facility] POCT GLUCOSE (AUTOMATED) 2024-07-21 02:51:[address] [facility] POCT GLUCOSE (AUTOMATED) 2024-07-20 22:28:[address] [facility] POCT GLUCOSE (AUTOMATED) 2024-07-20 22:28:[address] [facility] POCT GLUCOSE (AUTOMATED) 2024-07-20 22:28:[address] [facility] POCT GLUCOSE (AUTOMATED) 2024-07-20 17:19:[address] [facility] POCT GLUCOSE (AUTOMATED) 2024-07-20 17:19:[address] [facility] POCT GLUCOSE (AUTOMATED) 2024-07-20 17:19:[address] [facility] POCT GLUCOSE (AUTOMATED) 2024-07-20 15:23:[address] [facility] POCT GLUCOSE (AUTOMATED) 2024-07-20 15:23:[address] [facility] POCT GLUCOSE (AUTOMATED) 2024-07-20 15:23:[address] [facility] HB ECG ROUTINE & RHYTHM STRIP 2024-07-20 15:03:28 [facility]HYTHM [facility] 2024-07-20 15:03:28 Arya Mejía [facility] HB ECG ROUTINE & RHYTHM STRIP 2024-07-20 15:03:28 Arya Mejía [facility] LACTIC ACID WHOLE BLOOD 2024-07-20 14:21:00 Jose De Jesus [facility] LACTIC ACID WHOLE BLOOD 2024-07-20 14:21:00 Jose De Jesus [facility] LACTIC ACID WHOLE BLOOD 2024-07-20 14:21:00 Jose De Jesus [facility] MAGNESIUM 2024-07-20 11:11:00 Jose De Jesus [facility] BASIC METABOLIC PANEL (NA, K, CL, CO2, GLUCOSE, BUN, CREATININE, CA) 2024-07-20 11:11:00 Jose De Jesus [facility] CBC WITHOUT DIFF 2024-07-20 11:11:00 Jose De Jesus [facility] PROTHROMBIN TIME / INR 2024-07-20 11:11:[address] [facility] ACTIVATED PARTIAL THRMPLAS MILKA 2024-07-20 11:11:[address] [facility] N-TERMINAL PRO-BNP 2024-07-20 11:11:[address] [facility] MAGNESIUM 2024-07-20 11:11:00 Jose De Jesus [facility] BASIC METABOLIC PANEL (NA, K, CL, CO2, GLUCOSE, BUN, CREATININE, CA) 2024-07-20 11:11:00 Jose De Jesus [facility] CBC WITHOUT DIFF 2024-07-20 11:11:00 Jose De Jesus [facility] PROTHROMBIN TIME / INR 2024-07-20 11:11:[address] [facility] ACTIVATED PARTIAL THRMPLAS MILKA 2024-07-20 11:11:[address] [facility] N-TERMINAL PRO-BNP 2024-07-20 11:11:00 [facility] BASIC METABOLIC PANEL (NA, K, CL, CO2, GLUCOSE, BUN, CREATININE, CA) 2024-07-20 11:11[facility]00 [facility]-07-20 11:11:00 Jose De Jesus [facility] CBC WITHOUT DIFF 2024-07-20 11:11:00 Jose De Jesus [facility] PROTHROMBIN TIME / INR 2024-07-20 11:11:00 Tiffanie Ramirez Basilio [facility] ACTIVATED PARTIAL THRMPLAS MILKA 2024-07-20 11:11:00 Tiffanie Ramirez Basilio [facility] N-TERMINAL PRO-BNP 2024-07-20 11:11:[address] [facility] PROTHROMBIN TIME / INR 2024-07-20 05:21:[address] [facility] [facility] ACTIVATED PARTIAL THRMPLAS MILKA 2024-07-20 05:21:00 Tiffanie Ramirez Basilio [facility] PROTHROMBIN TIME / INR 2024-07-20 05:21:[address] [facility] ACTIVATED PARTIAL THRMPLAS MILKA 2024-07-20 05:21:00 Tiffanie Ramirez Basilio [facility] PROTHROMBIN TIME / INR 2024-07-20 05:21:[address] [facility] ACTIVATED PARTIAL THRMPLAS MILKA 2024-07-20 05:21:[address] [facility] POCT GLUCOSE (AUTOMATED) 2024-07-20 04:27:[address] [facility] POCT GLUCOSE (AUTOMATED) 2024-07-20 04:27:[address] [facility] POCT GLUCOSE (AUTOMATED) 2024-07-20 04:27:[address] [facility] CATH PROCEDURE LOG 2024-07-20 00:06:51 [address] Darian [facility] CATH PROCEDURE LOG 2024-07-20 00:06:[address] [facility] CATH PROCEDURE LOG 2024-07-20 00:06:[address] [facility] CARDIAC CATHETERIZATION 2024-07-19 23:45:[address] Darian [facility] CARDIAC CATHETERIZATION 2024-07-19 23:45:[address] [facility] CARDIAC CATHETERIZATION 2024-07-19 23:45:17 [address] [facility] POTASSIUM SERUM 2024-07-19 20:43:00 [facility] POTASSIUM SERUM 2024-07-19 20:43:00 Jose De Jesus [facility] POTASSIUM SERUM 2024-07-19 20:43:00 Jose De Jesus ilia [facility] HB ECG ROUTINE & RHYTHM STRIP 2024-07-19 18:19:17 Jose De Jesus [facility] HB ECG ROUTINE & RHYTHM STRIP 2024-07-19 18:19:17 Jose De Jesus [facility] HB ECG ROUTINE & RHYTHM STRIP 2024-07-19 18:19:17 Jose De Jesus [facility] POCT GLUCOSE (AUTOMATED) 2024-07-19 18:06:[address] [facility] POCT GLUCOSE (AUTOMATED) 2024-07-19 18:06:[address] [facility] POCT GLUCOSE (AUTOMATED) 2024-07-19 18:06:[address] [facility] POCT GLUCOSE (AUTOMATED) 2024-07-19 18:06:[address] [facility] BASIC METABOLIC PANEL (NA, K, CL, CO2, GLUCOSE, BUN, CREATININE, CA) 2024-07-19 17:01:[address] [facility] BASIC METABOLIC PANEL (NA, K, CL, CO2, GLUCOSE, BUN, CREATININE, CA) 2024-07-19 17:01:[address] [facility] BASIC METABOLIC PANEL (NA, K, CL, CO2, GLUCOSE, BUN, CREATININE, CA) 2024-07-19 17:01:[address] [facility] BASIC METABOLIC PANEL (NA, K, CL, CO2, GLUCOSE, BUN, CREATININE, CA) 2024-07-19 17:01:[address] [facility] HB ECG ROUTINE & RHYTHM STRIP 2024-07-19 14:20:[address] [facility] HB ECG ROUTINE & RHYTHM STRIP 2024-07-19 14:20:[address] [facility] HB ECG ROUTINE & RHYTHM STRIP 2024-07-19 14:20:[address] [facility] POCT GLUCOSE (AUTOMATED) 2024-07-19 14:20:[address] [facility] POCT GLUCOSE (AUTOMATED) 2024-07-19 14:20:[address] [facility] POCT GLUCOSE (AUTOMATED) 2024-07-19 14:20:[address] [facility] POCT GLUCOSE (AUTOMATED) 2024-07-19 14:20:[address] [facility] MAGNESIUM 2024-07-19 11:08:00 Jose De Jesus [facility] BASIC METABOLIC PANEL (NA, K, CL, CO2, GLUCOSE, BUN, CREATININE, CA) 2024-07-19 11:08:00 [facility] CBC WITHOUT DIFF 2024-07-19 11:08:00 Jose De Jesus [facility] MAGNESIUM 2024-07-19 11:08:00 Jose De Jesus [facility] BASIC METABOLIC PANEL (NA, K, CL, CO2, GLUCOSE, BUN, CREATININE, CA) 2024-07-19 11:08:00 Jose De Jesus [facility] CBC WITHOUT DIFF 2024-07-19 11:08:00 [facility] MAGNESIUM 2024-07-19 11:08:00 Madhukar, Niyata [facility] BASIC METABOLIC PANEL (NA, K, CL, CO2, GLUCOSE, BUN, CREATININE, CA) 2024-07-19 11:08:[address] [facility] CBC WITHOUT DIFF 2024-07-19 11:08:00 Jose De Jesus [facility] BASIC METABOLIC PANEL (NA, K, CL, CO2, GLUCOSE, BUN, CREATININE, CA) 2024-07-19 11:08:[address] [facility] MAGNESIUM 2024-07-19 11:08:00 Jose De Jesus [facility] CBC WITHOUT DIFF 2024-07-19 11:08:00 Jose De Jesus [facility] CATH PROCEDURE LOG 2024-07-19 01:07:24 Doctor Unassigned, Tichigan [facility] CATH PROCEDURE LOG 2024-07-19 01:07:24 Doctor Unassigned, Tichigan [facility] CATH PROCEDURE LOG 2024-07-19 01:07:24 Doctor Unassigned, Tichigan [facility] CATH PROCEDURE LOG 2024-07-19 01:07:24 Doctor Unassigned, Tichigan [facility] ELECTROPHYSIOLOGY PROCEDURE 2024-07-19 00:49:54 Martina Walls [facility] ELECTROPHYSIOLOGY PROCEDURE 2024-07-19 00:49:54 Martina Walls [facility] ELECTROPHYSIOLOGY PROCEDURE 2024-07-19 00:49:54 Martina Walls [facility] ELECTROPHYSIOLOGY PROCEDURE 2024-07-19 00:49:54 Martina Walls [facility] POCT GLUCOSE (AUTOMATED) 2024-07-18 18:34:[address] [facility] POCT GLUCOSE (AUTOMATED) 2024-07-18 18:34:[address] [facility] POCT GLUCOSE (AUTOMATED) 2024-07-18 18:34:[address] [facility] POCT GLUCOSE (AUTOMATED) 2024-07-18 18:34:[address] [facility] NM LUNG VENTILATION AND PERFUSION 2024-07-18 18:18:23 Moghadasha [facility] LUNG VENTILATION AND PERFUSION 2024-07-18 18:18:23 Omi [facility] LUNG VENTILATION AND PERFUSION 2024-07-18 18:18:23 Omi [facility] LUNG VENTILATION AND PERFUSION 2024-07-18 18:18:23 Omi [facility] HB ECG ROUTINE & RHYTHM STRIP 2024-07-18 13:51:[address] [facility] HB ECG ROUTINE & RHYTHM STRIP 2024-07-18 13:51:[address] [facility] HB ECG ROUTINE & RHYTHM STRIP 2024-07-18 13:51:[address] [facility] HB ECG ROUTINE & RHYTHM STRIP 2024-07-18 13:51:[address] [facility] MAGNESIUM 2024-07-18 09:11:00 Pedro Luis [facility] BASIC METABOLIC PANEL (NA, K, CL, CO2, GLUCOSE, BUN, CREATININE, CA) 2024-07-18 09:11:00 Pedro Luis [facility] CBC WITH DIFF 2024-07-18 09:11:00 Pedro Luis [facility] ACTIVATED PARTIAL THRMPLAS MILKA 2024-07-18 09:11:[address] [facility] MAGNESIUM 2024-07-18 09:11:00 Pedro Luis [facility] BASIC METABOLIC PANEL (NA, K, CL, CO2, GLUCOSE, BUN, CREATININE, CA) 2024-07-18 09:11:00 Pedro Luis [facility] CBC WITH DIFF 2024-07-18 09:11:00 Pedro Luis [facility] ACTIVATED PARTIAL THRMPLAS MILKA 2024-07-18 09:11:[address] [facility] MAGNESIUM 2024-07-18 09:11:00 Pedro Luis [facility] BASIC METABOLIC PANEL (NA, K, CL, CO2, GLUCOSE, BUN, CREATININE, CA) 2024-07-18 09:11:[address] [facility] CBC WITH DIFF 2024-07-18 09:11:00 Pedro Luis [facility] ACTIVATED PARTIAL THRMPLAS MILKA 2024-07-18 09:11:[address] [facility] CBC WITH DIFF 2024-07-18 09:11:00 Pedro Luis Vernon [facility] MAGNESIUM 2024-07-18 09:11:00 Pedro Luis [facility] BASIC METABOLIC PANEL (NA, K, CL, CO2, GLUCOSE, BUN, CREATININE, CA) 2024-07-18 09:11:00 Pedro Luis [facility] ACTIVATED PARTIAL THRMPLAS MILKA 2024-07-18 09:11:[address] [facility] POCT GLUCOSE (AUTOMATED) 2024-07-18 03:04:[address] [facility] POCT GLUCOSE (AUTOMATED) 2024-07-18 03:04:[address] [facility] POCT GLUCOSE (AUTOMATED) 2024-07-18 03:04:[address] [facility] POCT GLUCOSE (AUTOMATED) 2024-07-18 03:04:[address] [facility] POCT GLUCOSE (AUTOMATED) 2024-07-17 22:08:[address] [facility] POCT GLUCOSE (AUTOMATED) 2024-07-17 22:08:[address] [facility] POCT GLUCOSE (AUTOMATED) 2024-07-17 22:08:[address] [facility] POCT GLUCOSE (AUTOMATED) 2024-07-17 22:08:[address] [facility] ACTIVATED PARTIAL THRMPLAS MILKA 2024-07-17 21:03:[address] [facility] ACTIVATED PARTIAL THRMPLAS MILKA 2024-07-17 21:03:[address] [facility] ACTIVATED PARTIAL THRMPLAS MILAK 2024-07-17 21:03:[address] [facility] ACTIVATED PARTIAL THRMPLAS MILKA 2024-07-17 21:03:[address] [facility] POCT GLUCOSE (AUTOMATED) 2024-07-17 17:12:[address] [facility] POCT GLUCOSE (AUTOMATED) 2024-07-17 17:12:[address] [facility] POCT GLUCOSE (AUTOMATED) 2024-07-17 17:12:[address] [facility] POCT GLUCOSE (AUTOMATED) 2024-07-17 17:12:[address] [facility] POCT GLUCOSE (AUTOMATED) 2024-07-17 13:49:[address] [facility] POCT GLUCOSE (AUTOMATED) 2024-07-17 13:49:[address] [facility] POCT GLUCOSE (AUTOMATED) 2024-07-17 13:49:[address] [facility] POCT GLUCOSE (AUTOMATED) 2024-07-17 13:49:[address] [facility] ABORH CONFIRMATION (LAB ONLY) 2024-07-17 11:56:[address] [facility] ABORH CONFIRMATION (LAB ONLY) 2024-07-17 11:56:[address] [facility] ABORH CONFIRMATION (LAB ONLY) 2024-07-17 11:56:[address] [facility] ABORH CONFIRMATION (LAB ONLY) 2024-07-17 11:56:[address] [facility] MAGNESIUM 2024-07-17 11:08:00 Pedro Luis [facility] BASIC METABOLIC PANEL (NA, K, CL, CO2, GLUCOSE, BUN, CREATININE, CA) 2024-07-17 11:08:00 Pedro Luis [facility] CBC WITH DIFF 2024-07-17 11:08:00 Pedro Luis [facility] HB ABO GROUPING 2024-07-17 11:08:00 Pedro Luis [facility] MAGNESIUM 2024-07-17 11:08:00 Pedro Luis [facility] BASIC METABOLIC PANEL (NA, K, CL, CO2, GLUCOSE, BUN, CREATININE, CA) 2024-07-17 11:08:00 Pedro Luis [facility] CBC WITH DIFF 2024-07-17 11:08:00 Pedro Luis [facility] HB ABO GROUPING 2024-07-17 11:08:00 Niyunol [facility] MAGNESIUM 2024-07-17 11:08:00 Niflaquito [facility] BASIC METABOLIC PANEL (NA, K, CL, CO2, GLUCOSE, BUN, CREATININE, CA) 2024-07-17 11:08:00 Pedro Luis [facility] CBC WITH DIFF 2024-07-17 11:08:00 Pedro Luis [facility] HB ABO GROUPING 2024-07-17 11:08:00 Niyunol [facility] HB ABO GROUPING 2024-07-17 11:08:00 Triniol [facility] CBC WITH DIFF 2024-07-17 11:08:00 Niziol [facility] MAGNESIUM 2024-07-17 11:08:00 Niflaquito [facility] BASIC METABOLIC PANEL (NA, K, CL, CO2, GLUCOSE, BUN, CREATININE, CA) 2024-07-17 11:08:00 Pedro Luis [facility] ACTIVATED PARTIAL THRMPLAS MILKA 2024-07-17 08:54:[address] [facility] ACTIVATED PARTIAL THRMPLAS MILKA 2024-07-17 08:54:[address] [facility] ACTIVATED PARTIAL THRMPLAS MILKA 2024-07-17 08:54:[address] [facility] ACTIVATED PARTIAL THRMPLAS MILKA 2024-07-17 08:54:[address] [facility] POCT GLUCOSE (AUTOMATED) 2024-07-17 02:17:[address] [facility] POCT GLUCOSE (AUTOMATED) 2024-07-17 02:17:[address] [facility] POCT GLUCOSE (AUTOMATED) 2024-07-17 02:17:[address] [facility] POCT GLUCOSE (AUTOMATED) 2024-07-17 02:17:[address] [facility] POCT GLUCOSE (AUTOMATED) 2024-07-16 22:49:[address] [facility] POCT GLUCOSE (AUTOMATED) 2024-07-16 22:49:[address] [facility] POCT GLUCOSE (AUTOMATED) 2024-07-16 22:49:[address] [facility] POCT GLUCOSE (AUTOMATED) 2024-07-16 22:49:[address] [facility] ACTIVATED PARTIAL THRMPLAS MILKA 2024-07-16 20:20:[address] [facility] ACTIVATED PARTIAL THRMPLAS MILKA 2024-07-16 20:20:[address] [facility] ACTIVATED PARTIAL THRMPLAS MILKA 2024-07-16 20:20:[address] [facility] ACTIVATED PARTIAL THRMPLAS MILKA 2024-07-16 20:20:[address] [facility] POCT GLUCOSE (AUTOMATED) 2024-07-16 17:46:[address] [facility] POCT GLUCOSE (AUTOMATED) 2024-07-16 17:46:[address] [facility] POCT GLUCOSE (AUTOMATED) 2024-07-16 17:46:[address] [facility] POCT GLUCOSE (AUTOMATED) 2024-07-16 17:46:[address] [facility] POCT GLUCOSE (AUTOMATED) 2024-07-16 14:56:[address] [facility] POCT GLUCOSE (AUTOMATED) 2024-07-16 14:56:[address] [facility] POCT GLUCOSE (AUTOMATED) 2024-07-16 14:56:[address] [facility] POCT GLUCOSE (AUTOMATED) 2024-07-16 14:56:[address] [facility] MAGNESIUM 2024-07-16 07:53:[address] [facility] BASIC METABOLIC PANEL (NA, K, CL, CO2, GLUCOSE, BUN, CREATININE, CA) 2024-07-16 07:53:00 Pedro Luis [facility] CBC WITH DIFF 2024-07-16 07:53:00 Niziol [facility] ACTIVATED PARTIAL THRMPLAS MILKA 2024-07-16 07:53:[address] [facility] MAGNESIUM 2024-07-16 07:53:00 Pedro Luis [facility] BASIC METABOLIC PANEL (NA, K, CL, CO2, GLUCOSE, BUN, CREATININE, CA) 2024-07-16 07:53:00 Pedro Luis [facility] CBC WITH DIFF 2024-07-16 07:53:00 Niflaquito [facility] ACTIVATED PARTIAL THRMPLAS MILKA 2024-07-16 07:53:[address] [facility] MAGNESIUM 2024-07-16 07:53:00 Niflaquito [facility] BASIC METABOLIC PANEL (NA, K, CL, CO2, GLUCOSE, BUN, CREATININE, CA) 2024-07-16 07:53:00 Pedro Luis [facility] CBC WITH DIFF 2024-07-16 07:53:00 Pedro Luis [facility] ACTIVATED PARTIAL THRMPLAS MILKA 2024-07-16 07:53:[address] [facility] CBC WITH DIFF 2024-07-16 07:53:00 Niziol [facility] MAGNESIUM 2024-07-16 07:53:00 Niflaquito [facility] BASIC METABOLIC PANEL (NA, K, CL, CO2, GLUCOSE, BUN, CREATININE, CA) 2024-07-16 07:53:00 Pedro Luis [facility] ACTIVATED PARTIAL THRMPLAS MILKA 2024-07-16 07:53:[address] [facility] POCT GLUCOSE (AUTOMATED) 2024-07-16 03:06:[address] [facility] POCT GLUCOSE (AUTOMATED) 2024-07-16 03:06:[address] [facility] POCT GLUCOSE (AUTOMATED) 2024-07-16 03:06:[address] [facility] POCT GLUCOSE (AUTOMATED) 2024-07-16 03:06:[address] [facility] POCT GLUCOSE (AUTOMATED) 2024-07-15 23:48:[address] [facility] POCT GLUCOSE (AUTOMATED) 2024-07-15 23:48:[address] [facility] POCT GLUCOSE (AUTOMATED) 2024-07-15 23:48:[address] [facility] POCT GLUCOSE (AUTOMATED) 2024-07-15 23:48:[address] [facility] URINE DRUG (IMMUNOASSAY) - COMPREHENSIVE DRUG SCREEN 2024-07-15 18:54:00 [facility] URINE DRUG (IMMUNOASSAY) - COMPREHENSIVE DRUG SCREEN 2024-07-15 18:54:00 [facility] URINE DRUG (LCMSMS) - SYNTHETIC OPIATES PANEL 2024-07-15 18:54:00 [facility] URINE DRUG (IMMUNOASSAY) - COMPREHENSIVE DRUG SCREEN 2024-07-15 18:54:00 [facility] URINE DRUG (LCMSMS) - SYNTHETIC OPIATES PANEL 2024-07-15 18:54:00 [facility] URINE DRUG (IMMUNOASSAY) - COMPREHENSIVE DRUG SCREEN 2024-07-15 18:54:00 [facility] URINE DRUG (LCMSMS) - OPIATES PANEL 2024-07-15 18:54:00 [facility] TROPONIN I 2024-07-15 18:53:[address] [facility] ACTIVATED PARTIAL THRMPLAS MILKA 2024-07-15 18:53:[address] [facility] TROPONIN I 2024-07-15 18:53:00 Pedro Luis [facility] ACTIVATED PARTIAL THRMPLAS MILKA 2024-07-15 18:53:[address] [facility] TROPONIN I 2024-07-15 18:53:00 Pedro Luis [facility] ACTIVATED PARTIAL THRMPLAS MILKA 2024-07-15 18:53:[address] [facility] TROPONIN I 2024-07-15 18:53:00 Niflaquito [facility] ACTIVATED PARTIAL THRMPLAS MILKA 2024-07-15 18:53:[address] [facility] POCT GLUCOSE (AUTOMATED) 2024-07-15 17:52:[address] [facility] POCT GLUCOSE (AUTOMATED) 2024-07-15 17:52:[address] [facility] POCT GLUCOSE (AUTOMATED) 2024-07-15 17:52:[address] [facility] POCT GLUCOSE (AUTOMATED) 2024-07-15 17:52:[address] [facility] POCT GLUCOSE (AUTOMATED) 2024-07-15 14:02:[address] [facility] POCT GLUCOSE (AUTOMATED) 2024-07-15 14:02:[address] [facility] POCT GLUCOSE (AUTOMATED) 2024-07-15 14:02:[address] [facility] POCT GLUCOSE (AUTOMATED) 2024-07-15 14:02:[address] [facility] MAGNESIUM 2024-07-15 07:14:00 Pedro Luis [facility] TROPONIN I 2024-07-15 07:14:00 Pedro Luis [facility] BASIC METABOLIC PANEL (NA, K, CL, CO2, GLUCOSE, BUN, CREATININE, CA) 2024-07-15 07:14:00 Pedro Luis [facility] LIPID PANEL ([id number])(TOTAL CHOLESTEROL, TRIGLYCERIDES, HDL) 2024-07-15 07:14:00 Niziol, [facility] CBC WITH DIFF 2024-07-15 07:14:00 Niziol, [facility] ACTIVATED PARTIAL THRMPLAS MILKA 2024-07-15 07:14:[address] [facility] MAGNESIUM 2024-07-15 07:14:00 Niziol, [facility] TROPONIN I 2024-07-15 07:14:00 Niziol, [facility] BASIC METABOLIC PANEL (NA, K, CL, CO2, GLUCOSE, BUN, CREATININE, CA) 2024-07-15 07:14:00 Niziol, [facility] LIPID PANEL ([id number])(TOTAL CHOLESTEROL, TRIGLYCERIDES, HDL) 2024-07-15 07:14:00 Niziol, [facility] CBC WITH DIFF 2024-07-15 07:14:00 Niziol, [facility] ACTIVATED PARTIAL THRMPLAS MILKA 2024-07-15 07:14:[address] [facility] MAGNESIUM 2024-07-15 07:14:00 Niziol, [facility] TROPONIN I 2024-07-15 07:14:00 Niziol, [facility] BASIC METABOLIC PANEL (NA, K, CL, CO2, GLUCOSE, BUN, CREATININE, CA) 2024-07-15 07:14:00 Niziol, [facility] LIPID PANEL ([id number])(TOTAL CHOLESTEROL, TRIGLYCERIDES, HDL) 2024-07-15 07:14:00 Niziol, [facility] CBC WITH DIFF 2024-07-15 07:14:00 Niziol, [facility] ACTIVATED PARTIAL THRMPLAS MILKA 2024-07-15 07:14:[address] [facility] ACTIVATED PARTIAL THRMPLAS MILKA 2024-07-15 07:14:[address] [facility] CBC WITH DIFF 2024-07-15 07:14:00 Niziol, [facility] MAGNESIUM 2024-07-15 07:14:00 Niziol, [facility] BASIC METABOLIC PANEL (NA, K, CL, CO2, GLUCOSE, BUN, CREATININE, CA) 2024-07-15 07:14:00 Pedro Luis [facility] TROPONIN I 2024-07-15 07:14:00 Pedro Luis [facility] LIPID PANEL ([id number])(TOTAL CHOLESTEROL, TRIGLYCERIDES, HDL) 2024-07-15 07:14:00 Pedro Luis [facility] POCT GLUCOSE (AUTOMATED) 2024-07-15 02:54:[address] [facility] POCT GLUCOSE (AUTOMATED) 2024-07-15 02:54:[address] [facility] POCT GLUCOSE (AUTOMATED) 2024-07-15 02:54:[address] [facility] POCT GLUCOSE (AUTOMATED) 2024-07-15 02:54:[address] [facility] POCT GLUCOSE (AUTOMATED) 2024-07-14 22:21:[address] [facility] POCT GLUCOSE (AUTOMATED) 2024-07-14 22:21:[address] [facility] POCT GLUCOSE (AUTOMATED) 2024-07-14 22:21:[address] [facility] POCT GLUCOSE (AUTOMATED) 2024-07-14 22:21:[address] [facility] ACTIVATED PARTIAL THRMPLAS MILKA 2024-07-14 18:04:[address] [facility] ACTIVATED PARTIAL THRMPLAS MILKA 2024-07-14 18:04:[address] [facility] ACTIVATED PARTIAL THRMPLAS MILKA 2024-07-14 18:04:[address] [facility] ACTIVATED PARTIAL THRMPLAS MILKA 2024-07-14 18:04:[address] [facility] POCT GLUCOSE (AUTOMATED) 2024-07-14 17:41:[address] [facility] POCT GLUCOSE (AUTOMATED) 2024-07-14 17:41:[address] [facility] POCT GLUCOSE (AUTOMATED) 2024-07-14 17:41:[address] [facility] POCT GLUCOSE (AUTOMATED) 2024-07-14 17:41:[address] [facility] TRANSTHORACIC ECHO (TTE) COMPLETE W/ CONTRAST 2024-07-14 15:42:[address] [facility] TRANSTHORACIC ECHO (TTE) COMPLETE W/ CONTRAST 2024-07-14 15:42:[address] [facility] TRANSTHORACIC ECHO (TTE) COMPLETE W/ CONTRAST 2024-07-14 15:42:[address] [facility] TRANSTHORACIC ECHO (TTE) COMPLETE W/ CONTRAST 2024-07-14 15:42:[address] [facility] POCT GLUCOSE (AUTOMATED) 2024-07-14 14:11:[address] [facility] POCT GLUCOSE (AUTOMATED) 2024-07-14 14:11:[address] [facility] POCT GLUCOSE (AUTOMATED) 2024-07-14 14:11:[address] [facility] POCT GLUCOSE (AUTOMATED) 2024-07-14 14:11:[address] [facility] HB ECG ROUTINE & RHYTHM STRIP 2024-07-14 14:08:[address] [facility] HB ECG ROUTINE & RHYTHM STRIP 2024-07-14 14:08:[address] [facility] HB ECG ROUTINE & RHYTHM STRIP 2024-07-14 14:08:[address] [facility] HB ECG ROUTINE & RHYTHM STRIP 2024-07-14 14:08:[address] [facility] C-REACTIVE PROTEIN 2024-07-14 10:20:[address] [facility] TROPONIN I 2024-07-14 10:20:[address] [facility] LIPID PANEL ([id number])(TOTAL CHOLESTEROL, TRIGLYCERIDES, HDL) 2024-07-14 10:20:[address] [facility] PROCALCITONIN 2024-07-14 10:20:00 Omi [facility] C-REACTIVE PROTEIN 2024-07-14 10:20:00 [facility] TROPONIN I 2024-07-14 10:20:[address] [facility] LIPID PANEL ([id number])(TOTAL CHOLESTEROL, TRIGLYCERIDES, HDL) 2024-07-14 10:20:00 Pedro Luis [facility] PROCALCITONIN 2024-07-14 10:20:00 [facility] C-REACTIVE PROTEIN 2024-07-14 10:20:00 [facility], [facility] TROPONIN I 2024-07-14 10:20:[address] [facility] LIPID PANEL ([id number])(TOTAL CHOLESTEROL, TRIGLYCERIDES, HDL) 2024-07-14 10:20:00 Pedro Luis [facility] PROCALCITONIN 2024-07-14 10:20:00 [facility] TROPONIN I 2024-07-14 10:20:[address] [facility] PROCALCITONIN 2024-07-14 10:20:00 [facility] C-REACTIVE PROTEIN 2024-07-14 10:20:00 [facility] LIPID PANEL ([id number])(TOTAL CHOLESTEROL, TRIGLYCERIDES, HDL) 2024-07-14 10:20:[address] [facility] MAGNESIUM 2024-07-14 06:05:[address] [facility] TROPONIN I 2024-07-14 06:05:[address] [facility] BASIC METABOLIC PANEL (NA, K, CL, CO2, GLUCOSE, BUN, CREATININE, CA) 2024-07-14 06:05:[address] [facility] SEDIMENTATION RATE 2024-07-14 06:05:[facility] CBC WITH DIFF 2024-07-14 06:05:[address] [facility] ACTIVATED PARTIAL THRMPLAS MILKA 2024-07-14 06:05:[address] [facility] MAGNESIUM 2024-07-14 06:05:[address] [facility] TROPONIN I 2024-07-14 06:05:[address] [facility] BASIC METABOLIC PANEL (NA, K, CL, CO2, GLUCOSE, BUN, CREATININE, CA) 2024-07-14 06:05:[address] [facility] SEDIMENTATION RATE 2024-07-14 06:05:[address] [facility] CBC WITH DIFF 2024-07-14 06:05:[address] [facility] ACTIVATED PARTIAL THRMPLAS MILKA 2024-07-14 06:05:[address] [facility] MAGNESIUM 2024-07-14 06:05:[address] [facility] TROPONIN I 2024-07-14 06:05:[address] [facility] BASIC METABOLIC PANEL (NA, K, CL, CO2, GLUCOSE, BUN, CREATININE, CA) 2024-07-14 06:05:[address] [facility] SEDIMENTATION RATE 2024-07-14 06:05:[address] [facility] CBC WITH DIFF 2024-07-14 06:05:[address] [facility] ACTIVATED PARTIAL THRMPLAS MILKA 2024-07-14 06:05:[address] [facility] TROPONIN I 2024-07-14 06:05:[address] [facility] CBC WITH DIFF 2024-07-14 06:05:[address] [facility] BASIC METABOLIC PANEL (NA, K, CL, CO2, GLUCOSE, BUN, CREATININE, CA) 2024-07-14 06:05:[address] [facility] MAGNESIUM 2024-07-14 06:05:[address] [facility] ACTIVATED PARTIAL THRMPLAS MILKA 2024-07-14 06:05:[address] [facility] SEDIMENTATION RATE 2024-07-14 06:05:[address] [facility] POCT GLUCOSE (AUTOMATED) 2024-07-14 04:14:[address] [facility] POCT GLUCOSE (AUTOMATED) 2024-07-14 04:14:[address] [facility] POCT GLUCOSE (AUTOMATED) 2024-07-14 04:14:[address] [facility] POCT GLUCOSE (AUTOMATED) 2024-07-14 04:14:[address] [facility] HB ECG ROUTINE & RHYTHM STRIP 2024-07-14 03:11:[address] [facility] HB ECG ROUTINE & RHYTHM STRIP 2024-07-14 03:11:[address] [facility] HB ECG ROUTINE & RHYTHM STRIP 2024-07-14 03:11:[address] [facility] HB ECG ROUTINE & RHYTHM STRIP 2024-07-14 03:11:[address] [facility] LACTIC ACID WHOLE BLOOD 2024-07-14 00:48:[address] [facility] LACTIC ACID WHOLE BLOOD 2024-07-14 00:48:[address] [facility] LACTIC ACID WHOLE BLOOD 2024-07-14 00:48:[address] [facility] LACTIC ACID WHOLE BLOOD 2024-07-14 00:48:[address] [facility] PHOSPHORUS 2024-07-13 21:44:[address] [facility] TROPONIN I 2024-07-13 21:44:[address] [facility] PHOSPHORUS 2024-07-13 21:44:[address] [facility] TROPONIN I 2024-07-13 21:44:[address] [facility] PHOSPHORUS 2024-07-13 21:44:[address] [facility] TROPONIN I 2024-07-13 21:44:[address] [facility] TROPONIN I 2024-07-13 21:44:[address] [facility] PHOSPHORUS 2024-07-13 21:44:[address] [facility] URINALYSIS 2024-07-13 19:29:[address] [facility] URINALYSIS 2024-07-13 19:29:[address] [facility] URINALYSIS 2024-07-13 19:29:[address]anny [facility] URINALYSIS 2024-07-13 19:29:00 [address]anny [facility] XR CHEST 1 VW 2024-07-13 18:29:28 [address]anny [facility] XR CHEST 1 2024-07-13 18:29:28 [address] Janny [facility] XR CHEST 1 2024-07-13 18:29:28 [address] Jordan Janny [facility] XR CHEST 1 2024-07-13 18:29:28 Jario Jordan Janny [facility] HB ECG ROUTINE & RHYTHM STRIP 2024-07-13 18:08:00 [address] Jordan Janny [facility] HB ECG ROUTINE & RHYTHM STRIP 2024-07-13 18:08:00 Jairo Jordan Janny [facility] HB ECG ROUTINE & RHYTHM STRIP 2024-07-13 18:08:00 Jairo Jordan Janny [facility] HB ECG ROUTINE & RHYTHM STRIP 2024-07-13 18:08:[address] [facility] MAGNESIUM 2024-07-13 17:57:00 [address] Jordan Janny [facility] TROPONIN I 2024-07-13 17:57:00 [address] Jordan Janny [facility] COMP. METABOLIC PANEL ([id number]) 2024-07-13 17:57:00 Jairo Jordan Janny [facility] CBC WITH DIFF 2024-07-13 17:57:00 NikkiJairo [facility] N-TERMINAL PRO-BNP 2024-07-13 17:57:[address] [facility] MAGNESIUM 2024-07-13 17:57:00 Nikki, K Janny [facility] TROPONIN I 2024-07-13 17:57:00 Nikki, K [facility] COMP. METABOLIC PANEL ([id number]) 2024-07-13 17:57:00 NikkiJairo [facility] CBC WITH DIFF 2024-07-13 17:57:00 NikkiJairo [facility] N-TERMINAL PRO-BNP 2024-07-13 17:57:00 Nikki, K Janny [facility] MAGNESIUM 2024-07-13 17:57:00 Nikki, K [facility] TROPONIN I 2024-07-13 17:57:00 Nikki, K [facility] COMP. METABOLIC PANEL ([id number]) 2024-07-13 17:57:00 NikkiJairo [facility] CBC WITH DIFF 2024-07-13 17:57:00 NikkiJairo [facility] N-TERMINAL PRO-BNP 2024-07-13 17:57:00 Nikki, Jairo [facility] N-TERMINAL PRO-BNP 2024-07-13 17:57:00 Nikki, K [facility] CBC WITH DIFF 2024-07-13 17:57:00 NikkiJairo [facility] COMP. METABOLIC PANEL ([id number]) 2024-07-13 17:57:00 NikkiJairo [facility] MAGNESIUM 2024-07-13 17:57:00 NikkiJairo [facility] TROPONIN I 2024-07-13 17:57:00 NikkiJairo [facility] CBC WITH DIFF 2024-07-13 16:54:[address] [facility] COMP. METABOLIC PANEL ([id number]) 2024-07-13 16:54:00 Mj, [facility] GLYCOSYLATED HEMOGLOBIN (A1C) 2024-07-13 16:54:00 Mj [facility] CBC WITH DIFF 2024-07-13 16:54:00 Mj [facility] N-TERMINAL PRO-BNP 2024-07-13 16:54:00 Mj [facility] POCT GLUCOSE (AUTOMATED) 2024-07-04 17:51:00 [facility] POCT GLUCOSE (AUTOMATED) 2024-07-04 17:51:00 [facility] POCT GLUCOSE (AUTOMATED) 2024-07-04 13:45:00 [facility] POCT GLUCOSE (AUTOMATED) 2024-07-04 13:45:00 [facility] PHOSPHORUS 2024-07-04 09:38:00 [facility] MAGNESIUM 2024-07-04 09:38:00 [facility] TROPONIN I 2024-07-04 09:38:00 [facility] BASIC METABOLIC PANEL (NA, K, CL, CO2, GLUCOSE, BUN, CREATININE, CA) 2024-07-04 09:38:00 [facility] N-TERMINAL PRO-BNP 2024-07-04 09:38:00 [facility]24-07-04 09:38:00 [facility] TROPONIN I 2024-07-04 09:38:00 [facility] BASIC METABOLIC PANEL (NA, K, CL, CO2, GLUCOSE, BUN, CREATININE, CA) 2024-07-04 09:38:00 [facility] MAGNESIUM 2024-07-04 09:38:00 [facility] N-TERMINAL PRO-BNP 2024-07-04 09:38:00 [facility] TROPONIN I 2024-07-04 03:35:00 [facility]04 03:35[facility]00 [facility] (AUTOMATED) 2024-07-04 02:31:00 [facility] 2024-07-04 02:31:00 [facility] 2024-07-03 23:31[facility]AS MILKA 2024-07-03 23:31[facility]00 [facility] / INR 2024-07-03 23:31:00 [facility] THRMPLAS MILKA 2024-07-03 23:31[facility]00 [facility] & RHYTHM STRIP 2024-07-03 23:25:43 [facility] RHYTHM STRIP 2024-07-03 23:25:43 Ruben [facility] XR CHEST 1 VW 2024-07-03 22:29:35 Ruben [facility] XR CHEST 1 VW 2024-07-03 22:29:35 [facility] 2024-07-03 21:21[facility]00 [facility] 2024-07-03 21:21[facility]00 [facility] COMP. METABOLIC PANEL ([id number]) 2024-07-03 21:21:00 [facility]FF 2024-07-03 21:21:00 Ruben [facility] N-TERMINAL PRO-BNP 2024-07-03 21:21:00 [facility]FF 2024-07-03 21:21:00 [facility] COMP. METABOLIC PANEL ([id number]) 2024-07-03 21:21:00 [facility] 2024-07-03 21:21[facility]00 [facility] 2024-07-03 21:21:[address] [facility] N-TERMINAL PRO-BNP 2024-07-03 21:21:[address] [facility] EKG-12 LEAD 2024-07-03 21:18:[address] [facility] CRITICAL CARE 2024-07-03 21:12:[address] [facility] CRITICAL CARE 2024-07-03 21:12:[address] [facility] CARDIAC DEVICE CHECK - REMOTE - ICD 2024-06-26 02:30:42 Vlad [facility] CARDIAC DEVICE CHECK - REMOTE - ICD 2024-06-26 02:30:42 [facility] WITH [facility]FF 2024-06-20 16:38:00 Mj [facility] COMP. METABOLIC PANEL ([id number]) 2024-06-20 16:38:00 Mj [facility] LIPID PANEL ([id number])(TOTAL CHOLESTEROL, TRIGLYCERIDES, HDL) 2024-06-20 16:38:00 Mj [facility] THYROID STIMULATING HORMONE 2024-06-20 16:38:00 Mj [facility] GLYCOSYLATED HEMOGLOBIN (A1C) 2024-06-20 16:38:00 Mj [facility] N-TERMINAL PRO-BNP 2024-06-20 16:38:[address] [facility] HCV ANTIBODY 2024-06-20 16:38:00 Mj [facility] PROSTATIC SPECIFIC ANTIGEN 2024-06-20 16:38:00 Mj [facility] MAGNESIUM 2024-06-20 16:38:[address] [facility] POCT GLUCOSE (AUTOMATED) 2024-05-17 21:58:[address] [facility] POCT GLUCOSE (AUTOMATED) 2024-05-17 21:58:[address] [facility] TROPONIN I 2024-05-17 21:35:[address] [facility] TROPONIN I 2024-05-17 21:35:[address] [facility] TROPONIN I 2024-05-17 18:59:[address] [facility] TROPONIN I 2024-05-17 18:59:00 [facility] HB ECG ROUTINE & RHYTHM STRIP 2024-05-17 18:54:50 [facility] HB ECG ROUTINE & RHYTHM STRIP 2024-05-17 18:54:[address] [facility] POCT GLUCOSE (AUTOMATED) 2024-05-17 16:45:[address] [facility] POCT GLUCOSE (AUTOMATED) 2024-05-17 16:45:[address] [facility] POCT GLUCOSE (AUTOMATED) 2024-05-17 12:37:[address] [facility] POCT GLUCOSE (AUTOMATED) 2024-05-17 12:37:[address] [facility] BASIC METABOLIC PANEL (NA, K, CL, CO2, GLUCOSE, BUN, CREATININE, CA) 2024-05-17 08:51:00 Santana [facility] CBC WITH DIFF 2024-05-17 08:51:00 Santana [facility] CBC WITH DIFF 2024-05-17 08:51:00 Sant[facility] BASIC METABOLIC PANEL (NA, K, CL, CO2, GLUCOSE, BUN, CREATININE, CA) 2024-05-17 08:51:00 [facility] POCT GLUCOSE (AUTOMATED) 2024-05-17 01:06:[address] [facility] POCT GLUCOSE (AUTOMATED) 2024-05-17 01:06:[address] [facility] POCT GLUCOSE (AUTOMATED) 2024-05-16 21:11:[address] [facility] POCT GLUCOSE (AUTOMATED) 2024-05-16 21:11:[address] [facility] POCT GLUCOSE (AUTOMATED) 2024-05-16 19:08:[address] [facility] POCT GLUCOSE (AUTOMATED) 2024-05-16 19:08:[address] [facility] POCT GLUCOSE (AUTOMATED) 2024-05-16 16:08:[address] [facility] POCT GLUCOSE (AUTOMATED) 2024-05-16 16:08:[address] [facility] POCT GLUCOSE (AUTOMATED) 2024-05-16 12:39:[address] [facility] POCT GLUCOSE (AUTOMATED) 2024-05-16 12:39:[address] [facility] MAGNESIUM 2024-05-16 07:55:[address] [facility] TROPONIN I 2024-05-16 07:55:[address] [facility] BASIC METABOLIC PANEL (NA, K, CL, CO2, GLUCOSE, BUN, CREATININE, CA) 2024-05-16 07:55:[address] [facility] CBC WITH DIFF 2024-05-16 07:55:[address] [facility] N-TERMINAL PRO-BNP 2024-05-16 07:55:[address] [facility] CBC WITH DIFF 2024-05-16 07:55:[address] [facility] BASIC METABOLIC PANEL (NA, K, CL, CO2, GLUCOSE, BUN, CREATININE, CA) 2024-05-16 07:55:[address] [facility] MAGNESIUM 2024-05-16 07:55:[address] [facility] TROPONIN I 2024-05-16 07:55:[address] [facility] N-TERMINAL PRO-BNP 2024-05-16 07:55:[address] [facility] POCT GLUCOSE (AUTOMATED) 2024-05-16 02:06:[address] [facility] POCT GLUCOSE (AUTOMATED) 2024-05-16 02:06:[address] [facility] TRANSTHORACIC ECHO (TTE) COMPLETE W/ CONTRAST 2024-05-15 14:15:[address] [facility] TRANSTHORACIC ECHO (TTE) COMPLETE W/ CONTRAST 2024-05-15 14:15:[address] [facility] TROPONIN I 2024-05-15 07:49:[address] [facility] HEPATIC FUNCTION PANEL ([id number]) (ALB,T.PRO,BILI T,BU/BC,ALT,AST,ALK PHOS) 2024-05-15 07:49:[address] [facility] LIPID PANEL ([id number])(TOTAL CHOLESTEROL, TRIGLYCERIDES, HDL) 2024-05-15 07:49:[address] [facility] N-TERMINAL PRO-BNP 2024-05-15 07:49:[address] [facility] HEPATIC FUNCTION PANEL ([id number]) (ALB,T.PRO,BILI T,BU/BC,ALT,AST,ALK PHOS) 2024-05-15 07:49:[address] [facility] TROPONIN I 2024-05-15 07:49:[address] [facility] LIPID PANEL ([id number])(TOTAL CHOLESTEROL, TRIGLYCERIDES, HDL) 2024-05-15 07:49:[address] [facility] N-TERMINAL PRO-BNP 2024-05-15 07:49:[address] [facility] XR CHEST 1 VW 2024-05-15 05:39:32 [facility] XR CHEST 1 VW 2024-05-15 05:39:32 [facility]15 05:19:[address] [facility] MAGNESIUM 2024-05-15 05:19:00 [facility] TROPONIN I 2024-05-15 05:19:00 [facility] COMP. METABOLIC PANEL ([id number]) 2024-05-15 05:19:00 [facility] CBC WITH DIFF 2024-05-15 05:19:00 [facility] N-TERMINAL PRO-BNP 2024-05-15 05:19:00 [facility] CBC WITH DIFF 2024-05-15 05:19:00 [facility] COMP. METABOLIC PANEL ([id number]) 2024-05-15 05:19:00 [facility] MAGNESIUM 2024-05-15 05:19:00 [facility] LIPASE 2024-05-15 05:19:00 [facility] N-TERMINAL PRO-BNP 2024-05-15 05:19:00 [facility] TROPONIN I 2024-05-15 05:19:00 [facility] HB ECG ROUTINE & RHYTHM STRIP 2024-05-15 05:12:18 [facility] HB ECG ROUTINE & RHYTHM STRIP 2024-05-15 05:12:18 [facility] POCT GLUCOSE (AUTOMATED) 2024-04-06 12:32:00 [facility] MAGNESIUM 2024-04-06 07:46:00 [facility] BASIC METABOLIC PANEL (NA, K, CL, CO2, GLUCOSE, BUN, CREATININE, CA) 2024-04-06 07:46:[address] [facility] CBC WITH DIFF 2024-04-06 07:46:[address] [facility] N-TERMINAL PRO-BNP 2024-04-06 07:46:00 [facility] POCT GLUCOSE (AUTOMATED) 2024-04-06 01:30:00 [facility] POCT GLUCOSE (AUTOMATED) 2024-04-05 21:50:00 [facility] POCT GLUCOSE (AUTOMATED) 2024-04-05 17:14:00 [facility] POCT GLUCOSE (AUTOMATED) 2024-04-05 12:48:00 [facility] MAGNESIUM 2024-04-05 09:06:00 [facility] HEPATIC FUNCTION PANEL ([id number]) (ALB,T.PRO,BILI T,BU/BC,ALT,AST,ALK PHOS) 2024-04-05 09:06:00 [facility] BASIC METABOLIC PANEL (NA, K, CL, CO2, GLUCOSE, BUN, CREATININE, CA) 2024-04-05 09:06:00 [facility] CBC WITHOUT DIFF 2024-04-05 09:06:00 [facility] N-TERMINAL PRO-BNP 2024-04-05 09:06:00 [facility] TROPONIN I 2024-04-05 04:36:00 [facility] POCT GLUCOSE (AUTOMATED) 2024-04-05 01:19:00 [facility] POCT GLUCOSE (AUTOMATED) 2024-04-04 22:05:00 [facility] TROPONIN I 2024-04-04 22:04:00 [facility] XR CHEST 1 VW 2024-04-04 17:23:00 Ruben [facility] TROPONIN I 2024-04-04 17:13:00 Ruben [facility] COMP. METABOLIC PANEL ([id number]) 2024-04-04 17:13:00 Ruben [facility] CBC WITH DIFF 2024-04-04 17:13:00 Ruben [facility] N-TERMINAL PRO-BNP 2024-04-04 17:13:00 Ruben [facility] HB ECG ROUTINE & RHYTHM STRIP 2024-04-04 17:02:20 Ruben [facility] CRITICAL CARE 2024-04-04 16:50:[address] [facility] THYROID STIMULATING HORMONE 2023-11-19 13:04:[address] [facility] PHYSICIAN ORDERS 2023-11-17 18:56:16 Doctor Unassigned, [place] [facility] - OTHER 2023-11-06 16:18:17 Doctor Unassigned, [place] [facility] EXTERNAL PROVIDER - ADC CARDIOLOGY 2023-09-02 06:01:00 Doctor Unassigned, [place] [facility] TRANSTHORACIC ECHO (TTE) COMPLETE W/ CONTRAST 2023-07-30 20:54:00 David Ladd [facility] - OTHER 2023-06-03 05:01:00 Doctor Unassigned, [place] [facility] AUTHORIZATION FOR RELEASE OF PHI 2023-05-04 05:01:00 Doctor Unassigned, [place] [facility] URINALYSIS 2023-03-28 07:45:00 Jorge Yañez [facility] CT ABDOMEN PELVIS WO CONTRAST 2023-03-28 05:49:38 Jorge Yañez [facility] COMP. METABOLIC PANEL ([id number]) 2023-03-28 03:46:00 [facility] [facility] CBC WITH DIFF 2023-03-28 03:46:00 Jorge Yañez [facility] ASSIGNMENT OF BENEFITS 2022-10-27 15:17:06 Doctor Unassigned, Tichigan [facility] 2022-08-27 06:01:00 Doctor Unassigned, Tichigan [facility] AUTHORIZATION FOR RELEASE OF PHI 2022-06-12 06:01:00 Doctor Unassigned, Tichigan [facility] - OTHER 2022-06-10 06:01:00 Doctor Unassigned, Tichigan [facility] POCT GLUCOSE (AUTOMATED) 2022-06-09 22:52:[address] [facility] COVID-19 (ID NOW RAPID TESTING) 2022-06-09 20:00:[address] [facility] POCT GLUCOSE (AUTOMATED) 2022-06-09 17:56:00 [facility] 2022-06-09 13:39:00 [facility] BASIC METABOLIC PANEL (NA, K, CL, CO2, GLUCOSE, BUN, CREATININE, CA) 2022-06-09 11:16:00 Debby Pate [facility] CBC WITH DIFF 2022-06-09 11:16:00 Debby Pate [facility] POCT GLUCOSE (AUTOMATED) 2022-06-09 02:59:00 [facility] ([facility]OMATED) 2022-06-08 22:45:00 [facility] POCT GLUCOSE (AUTOMATED) 2022-06-08 17:33:00 [facility] BLOOD CULTURE SCREEN 2022-06-08 15:34:00 [facility] POCT GLUCOSE (AUTOMATED) 2022-06-08 13:38:00 [facility] COMP. METABOLIC PANEL ([id number]) 2022-06-08 10:57:[address] [facility] CBC WITH DIFF 2022-06-08 10:57:00 Debby Pate [facility] N-TERMINAL PRO-BNP 2022-06-08 10:57:00 Davon Debby [facility] BASIC METABOLIC PANEL (NA, K, CL, CO2, GLUCOSE, BUN, CREATININE, CA) 2022-06-08 03:02:[address] [facility] POCT GLUCOSE (AUTOMATED) 2022-06-08 01:25:00 [facility] ([facility]OMATED) 2022-06-07 21:57:00 [facility] POCT GLUCOSE (AUTOMATED) 2022-06-07 16:34:00 [facility] US RETROPERITONEAL LIMITED 2022-06-07 15:10:[address] [facility] OSMOLALITY URINE 2022-06-07 13:17:00 Magalis, [facility] POTASSIUM, URINE RANDOM 2022-06-07 13:17:00 Magalis [facility] SODIUM, URINE RANDOM 2022-06-07 13:17:00 Magalis, [facility] PROTEIN CREAT RATIO URINE RANDOM 2022-06-07 13:17:00 Magalis, [facility] POCT GLUCOSE (AUTOMATED) 2022-06-07 12:48:00 [facility] CREATINE KINASE 2022-06-07 08:47:00 Magalis [facility] MAGNESIUM 2022-06-07 08:47:00 [facility] BASIC METABOLIC PANEL (NA, K, CL, CO2, GLUCOSE, BUN, CREATININE, CA) 2022-06-07 08:47:[address] [facility] CBC WITH DIFF 2022-06-07 08:47:[address] [facility] N-TERMINAL PRO-BNP 2022-06-07 08:47:00 [facility] PO[facility]UCOSE (AUTOMATED) 2022-06-06 21:31:[address] [facility] POCT GLUCOSE (AUTOMATED) 2022-06-06 16:40:[address] [facility] POCT GLUCOSE (AUTOMATED) 2022-06-06 12:48:[address] [facility] MRSA / MSSA SCREEN BY PCRSKY 2022-06-06 10:23:[address] [facility] CORTISOL AM 2022-06-06 08:34:[address] [facility] FREE T4 2022-06-06 08:34:[address] [facility] THYROID STIMULATING HORMONE 2022-06-06 08:34:[address] [facility] BASIC METABOLIC PANEL (NA, K, CL, CO2, GLUCOSE, BUN, CREATININE, CA) 2022-06-06 08:34:[address] [facility] CBC WITH DIFF 2022-06-06 08:34:[address] [facility] GLYCOSYLATED HEMOGLOBIN (A1C) 2022-06-06 08:34:[address] [facility] CT HEAD WO CONTRAST 2022-06-05 22:02:10 [facility] XR CHEST 1 VW 2022-06-05 22:01:15 [facility] URINALYSIS 2022-06-05 21:22:00 [facility] URINE DRUG (IMMUNOASSAY) - COMPREHENSIVE DRUG SCREEN W/O REFLEX 2022-06-05 21:22:00 [facility] AC PANEL 20 + LACTIC ACID 2022-06-05 21:16:00 [facility] AMMONIA, PLASMA 2022-06-05 21:08:00 [facility] TROPONIN I 2022-06-05 21:08:00 [facility] COMP. METABOLIC PANEL ([id number]) 2022-06-05 21:08:00 Martínez [facility] CBC WITH DIFF 2022-06-05 21:08:00 [facility] PROTHROMBIN TIME / INR 2022-06-05 21:08:00 [facility] HB ECG ROUTINE & RHYTHM STRIP 2022-06-05 21:03:41 [facility] XR KNEE <3 VW LEFT 2022-06-04 13:32:[address] [facility] CONSENT/REFUSAL FOR DIAGNOSIS AND TREATMENT 2022-06-04 12:31:14 Doctor Unassigned, Tichigan [facility] POCT GLUCOSE (AUTOMATED) 2022-06-03 13:19:[address] [facility] MAGNESIUM 2022-06-03 08:07:00 Vanita [facility] COMP. METABOLIC PANEL ([id number]) 2022-06-03 08:07:[address] [facility] N-TERMINAL PRO-BNP 2022-06-03 08:07:00 Vanita, [facility] POCT GLUCOSE (AUTOMATED) 2022-06-02 22:17:[address] [facility] POCT GLUCOSE (AUTOMATED) 2022-06-02 17:11:[address] [facility] POCT GLUCOSE (AUTOMATED) 2022-06-02 13:00:[address] [facility] ACUTE CARE VENOUS BLOOD GAS 2022-06-02 10:01:00 Vanita [facility] PHOSPHORUS 2022-06-02 09:29:00 Vanita [facility] VITAMIN B12, LEVEL 2022-06-02 09:29:00 Vanita [facility] TROPONIN I 2022-06-02 09:29:00 Vanita [facility] COMP. METABOLIC PANEL ([id number]) 2022-06-02 09:29:00 Vanita [facility] CBC WITH DIFF 2022-06-02 09:29:00 Vanita [facility] VITAMIN D, 25-OH 2022-06-02 09:29:00 Vanita [facility] POCT GLUCOSE (AUTOMATED) 2022-06-02 09:17:[address] [facility] MAGNESIUM 2022-06-02 05:52:00 [facility]ONIN [facility] 2022-06-02 05:52:00 [facility] BASIC METABOLIC PANEL (NA, K, CL, CO2, GLUCOSE, BUN, CREATININE, CA) 2022-06-02 05:52:00 [facility] N-TERMINAL PRO-BNP 2022-06-02 05:52:00 [facility] TROPONIN I 2022-06-02 00:25:00 [facility] POCT GLUCOSE (AUTOMATED) 2022-06-02 00:23:[address] [facility] POCT GLUCOSE (AUTOMATED) 2022-06-01 21:42:[address] [facility] XR CHEST 1 VW 2022-06-01 18:05:[address] [facility] TROPONIN I 2022-06-01 17:45:[address] [facility] BASIC METABOLIC PANEL (NA, K, CL, CO2, GLUCOSE, BUN, CREATININE, CA) 2022-06-01 17:45:[address] [facility] CBC WITH DIFF 2022-06-01 17:45:[address] [facility] N-TERMINAL PRO-BNP 2022-06-01 17:45:[address] [facility] HB ECG ROUTINE & RHYTHM STRIP 2022-06-01 17:37:[address] [facility] CATH PROCEDURE LOG 2022-05-28 14:33:[address] [facility] CT ABDOMEN PELVIS W CONTRAST 2022-05-22 17:58:[address] [facility] LIPASE 2022-05-22 16:29:[address] [facility] TROPONIN I 2022-05-22 16:29:[address] [facility] COMP. METABOLIC PANEL ([id number]) 2022-05-22 16:29:[address] [facility] CBC WITH DIFF 2022-05-22 16:29:[address] [facility] N-TERMINAL PRO-BNP 2022-05-22 16:29:[address] [facility] POCT GLUCOSE (AUTOMATED) 2022-05-15 16:24:[address] [facility] POCT GLUCOSE (AUTOMATED) 2022-05-15 13:10:[address] [facility] MAGNESIUM 2022-05-15 09:52:[address] [facility] BASIC METABOLIC PANEL (NA, K, CL, CO2, GLUCOSE, BUN, CREATININE, CA) 2022-05-15 09:52:[address] [facility] CBC WITH DIFF 2022-05-15 09:52:[address] [facility] POCT GLUCOSE (AUTOMATED) 2022-05-15 00:56:[address] [facility] POCT GLUCOSE (AUTOMATED) 2022-05-14 21:29:[address] [facility] POCT GLUCOSE (AUTOMATED) 2022-05-14 13:16:[address] [facility] MAGNESIUM 2022-05-14 07:30:[address] [facility] BASIC METABOLIC PANEL (NA, K, CL, CO2, GLUCOSE, BUN, CREATININE, CA) 2022-05-14 07:30:00 Jasen Lee [facility] CBC WITH DIFF 2022-05-14 07:30:00 Jasen Lee [facility] ACTIVATED PARTIAL THRMPLAS MILKA 2022-05-14 07:30:[address] [facility] N-TERMINAL PRO-BNP 2022-05-14 07:30:[address] [facility] HOME HEALTH - OTHER 2022-05-14 05:01:00 Doctor Unassigned, Tichigan [facility] POCT GLUCOSE (AUTOMATED) 2022-05-14 00:36:[address] [facility] ACTIVATED PARTIAL THRMPLAS MILKA 2022-05-13 21:22:[address] [facility] POCT GLUCOSE (AUTOMATED) 2022-05-13 21:22:[address] [facility] POCT GLUCOSE (AUTOMATED) 2022-05-13 17:25:[address] [facility] TRANSTHORACIC ECHO (TTE) COMPLETE W/ CONTRAST 2022-05-13 16:40:[address] [facility] ACTIVATED PARTIAL THRMPLAS MILKA 2022-05-13 14:50:[address] [facility] POCT GLUCOSE (AUTOMATED) 2022-05-13 13:15:[address] [facility] HB ECG ROUTINE & RHYTHM STRIP 2022-05-13 12:33:54 Movva, [facility] MAGNESIUM 2022-05-13 09:06:[address] [facility] BASIC METABOLIC PANEL (NA, K, CL, CO2, GLUCOSE, BUN, CREATININE, CA) 2022-05-13 09:06:[address] [facility] TROPONIN I 2022-05-13 02:37:[address] [facility] ACTIVATED PARTIAL THRMPLAS MILKA 2022-05-13 02:37:[address] [facility] POCT GLUCOSE (AUTOMATED) 2022-05-13 02:36:00 Gino Rico [facility] TROPONIN I 2022-05-12 22:13:00 Belen [facility] POCT GLUCOSE (AUTOMATED) 2022-05-12 20:14:00 Gino Rico [facility] TROPONIN I 2022-05-12 19:24:00 Belen [facility] ACTIVATED PARTIAL THRMPLAS MILKA 2022-05-12 19:24:00 Belen [facility] POCT GLUCOSE (AUTOMATED) 2022-05-12 17:16:[address] [facility] URIC ACID 2022-05-12 13:19:00 Kostain [facility] TROPONIN I 2022-05-12 13:19:00 Kostain [facility] BASIC METABOLIC PANEL (NA, K, CL, CO2, GLUCOSE, BUN, CREATININE, CA) 2022-05-12 13:19:00 Belen [facility] ACTIVATED PARTIAL THRMPLAS MILKA 2022-05-12 13:07:00 Kostain [facility] POCT GLUCOSE (AUTOMATED) 2022-05-12 13:06:00 Gino Rico [facility] HB ECG ROUTINE & RHYTHM STRIP 2022-05-12 12:54:00 Belen [facility] MAGNESIUM 2022-05-12 11:07:00 Belen [facility] BASIC METABOLIC PANEL (NA, K, CL, CO2, GLUCOSE, BUN, CREATININE, CA) 2022-05-12 11:07:00 Belen [facility] ACTIVATED PARTIAL THRMPLAS MILKA 2022-05-12 01:15:00 Belen [facility] POCT GLUCOSE (AUTOMATED) 2022-05-12 01:00:[address] [facility] TROPONIN I 2022-05-11 21:17:00 Belen [facility] POCT GLUCOSE (AUTOMATED) 2022-05-11 21:13:[address] [facility] POCT GLUCOSE (AUTOMATED) 2022-05-11 17:58:[address] [facility] HB ECG ROUTINE & RHYTHM STRIP 2022-05-11 17:33:51 Belen [facility] CREATININE, URINE RANDOM 2022-05-11 16:48:00 Belen [facility] UREA NITROGEN, URINE RANDOM 2022-05-11 16:48:00 Belen [facility] SODIUM, URINE RANDOM 2022-05-11 16:48:00 Movdoni [facility] TROPONIN I 2022-05-11 16:45:00 Belen [facility] PROTHROMBIN TIME / INR 2022-05-11 16:45:00 Movdoni, [facility] ACTIVATED PARTIAL THRMPLAS MILKA 2022-05-11 16:45:00 Belen [facility] LACTIC ACID WHOLE BLOOD 2022-05-11 16:45:00 Belen [facility] POCT GLUCOSE (AUTOMATED) 2022-05-11 14:54:[address] [facility] CT HEAD WO CONTRAST 2022-05-11 08:39:[address] [facility] XR CHEST 1 VW 2022-05-11 08:37:[address] [facility] MAGNESIUM 2022-05-11 08:13:00 Belen [facility] FERRITIN SERUM 2022-05-11 08:13:00 Movdoni [facility] TROPONIN I 2022-05-11 08:13:[address] [facility] COMP. METABOLIC PANEL ([id number]) 2022-05-11 08:13:[address] [facility] IRON PANEL 2022-05-11 08:13:[address] [facility] CBC WITH DIFF 2022-05-11 08:13:[address] [facility] N-TERMINAL PRO-BNP 2022-05-11 08:13:[address] [facility] HB ECG ROUTINE & RHYTHM STRIP 2022-05-11 07:45:[address] [facility] CONSENT/REFUSAL FOR DIAGNOSIS AND TREATMENT 2022-05-11 07:27:49 Doctor Unassigned, Tichigan [facility] HOSPITAL ADMISSION 2022-05-11 05:01:00 Doctor Unassigned, Tichigan [facility] URINALYSIS 2022-05-09 20:53:00 [facility] TROPONIN I 2022-05-09 19:45:00 [facility] COMP. METABOLIC PANEL ([id number]) 2022-05-09 19:45:00 [facility] CBC WITH DIFF 2022-05-09 19:45:00 [facility] RAPID INFLUENZA A/B 2022-05-09 19:45:00 [facility] N-TERMINAL PRO-BNP 2022-05-09 19:45:00 [facility] XR CHEST 1 VW 2022-05-09 19:43:40 [facility] CONSENT/REFUSAL FOR DIAGNOSIS AND TREATMENT 2022-05-09 18:59:52 Doctor Unassigned, Tichigan [facility] MAGNESIUM 2022-05-06 09:13:[address] [facility] TROPONIN I 2022-05-06 09:13:[address] [facility] BASIC METABOLIC PANEL (NA, K, CL, CO2, GLUCOSE, BUN, CREATININE, CA) 2022-05-06 09:13:00 [facility] 2022-05-06 09:13:[address] [facility] TROPONIN I 2022-05-06 03:01:[address] [facility] EKG-12 LEAD 2022-05-05 22:35:[address] [facility] URINALYSIS 2022-05-05 20:37:[address] [facility] MAGNESIUM 2022-05-05 19:55:[address] [facility] TROPONIN I 2022-05-05 19:55:[address] [facility] THYROID STIMULATING HORMONE 2022-05-05 19:55:00 [facility] COMP. METABOLIC PANEL ([id number]) 2022-05-05 19:55:[address] [facility] CBC WITH DIFF 2022-05-05 19:55:[address] [facility] GLYCOSYLATED HEMOGLOBIN (A1C) 2022-05-05 19:55:00 Debby Pate [facility] N-TERMINAL PRO-BNP 2022-05-05 19:55:[address] [facility] XR CHEST 1 VW 2022-05-05 19:41:[address] [facility] MAGNESIUM 2022-04-30 10:01:00 [facility] BASIC METABOLIC PANEL (NA, K, CL, CO2, GLUCOSE, BUN, CREATININE, CA) 2022-04-30 10:01:00 [facility] N-TERMINAL PRO-BNP 2022-04-30 10:01:00 [facility] POCT GLUCOSE (AUTOMATED) 2022-04-30 01:12:00 [facility] POCT GLUCOSE (AUTOMATED) 2022-04-29 22:29:00 [facility] EKG-12 LEAD 2022-04-29 19:06:[address] [facility] COMP. METABOLIC PANEL ([id number]) 2022-04-29 16:58:00 [facility] 16:16[facility]00 [facility] 2022-04-29 16:16:00 [facility] N-TERMINAL PRO-BNP 2022-04-29 16:16:[address] [facility]W 2022-04-29 15:54:[address] [facility] CBC WITH DIFF 2022-04-29 15:37:00 [facility] PROT[facility]OMBIN TIME / INR 2022-04-29 15:37:00 Abilio [facility] COVID-19 (ID NOW RAPID TESTING) 2022-04-29 15:37:[address] [facility] HOME HEALTH - OTHER 2022-04-29 05:01:00 Doctor Unassigned, Tichigan [facility] TROPONIN I 2022-04-23 15:40:[address] [facility] MAGNESIUM 2022-04-23 09:35:00 [facility] TROPONIN I 2022-04-23 09:35:[address] [facility] BASIC METABOLIC PANEL (NA, K, CL, CO2, GLUCOSE, BUN, CREATININE, CA) 2022-04-23 09:35:[address] [facility] CBC WITH DIFF 2022-04-23 09:35:[address] [facility] TROPONIN I 2022-04-22 16:29:00 [facility] COMP. METABOLIC PANEL ([id number]) 2022-04-22 15:26:00 [facility] XR CHEST 1 VW 2022-04-22 14:09:51 [facility] TROPONIN I 2022-04-22 13:59:00 [facility] CBC WITH DIFF 2022-04-22 13:59:00 [facility] N-TERMINAL PRO-BNP 2022-04-22 13:59:00 Watts, Pia [facility] HB ECG ROUTINE & RHYTHM STRIP 2022-04-22 13:51:[address] [facility] CONSENT/REFUSAL FOR DIAGNOSIS AND TREATMENT 2022-04-17 12:16:10 Doctor Unassigned, Tichigan [facility] TROPONIN I 2022-04-15 19:05:[address] [facility] BASIC METABOLIC PANEL (NA, K, CL, CO2, GLUCOSE, BUN, CREATININE, CA) 2022-04-15 19:05:[address] [facility] CBC WITH DIFF 2022-04-15 19:05:00 Stacie [facility] N-TERMINAL PRO-BNP 2022-04-15 19:05:00 Stacie [facility] CONSENT/REFUSAL FOR DIAGNOSIS AND TREATMENT 2022-04-15 18:34:25 Doctor Unassigned, Tichigan [facility] HOME HEALTH - OTHER 2022-04-09 05:01:00 Doctor Unassigned, Tichigan [facility]ALTH [id number] 2022-03-12 05:01:00 Doctor Unassigned, Tichigan [facility] HIV 1/2 AG-AB WITH REFLEX 2022-02-15 08:11:[address] [facility] [id number] 2021-03-01 00:00:00 [facility] [id number] 2021-03-01 00:00:00 [facility] [id number] 2021-01-03 [facility]:00[id number] 2020-12-04 00:00:00 [facility] [id number] 2020-12-04 00:00:00 [facility] MICROALBUMIN URINE 2020-10-11 17:22:00 Maria E Fischer [facility] Magnesium Level [facility] Phosphorus Level [facility] Complete Blood Count w/Diff and Platelet [facility] PT and PTT [facility] Non-Invasive Ventilator - Me morial [facility] Comprehensive metabolic panel [facility] Plan of Care Planned Activity Planned Date Details Comments Source Procedure 2024-10-31 00:00:00 POCT Glucose Mem orial Ang Epic Encounters Start Date/Time End Date/Time Encounter Type Admission Type Attending Clinicians Care Facility Care Department Encounter ID Source 2024-09-30 21:33:00 Inpatient Emergency ZONIAMILANMARION [facility] General Medicine [id number] [facility] 2022-06-04 12:56:19 Outpatient SEBLE SANDERSON [facility] [id number] [facility] 2021-06-04 08:19:20 Emergency [facility] [id number] [facility] 2021-06-04 07:09:20 Emergency [facility] [id number] [facility] 2021-06-04 03:59:42 Emergency [facility] [id number] [facility] 2021-06-04 02:43:50 Emergency [facility] [id number] [facility] 2021-06-03 23:52:27 Emergency [facility] [id number] [facility] 2021-06-03 14:16:29 Emergency [facility] [id number] [facility] 2021-06-03 10:28:47 Emergency [facility] [id number] [facility] 2021-06-03 10:04:22 Emergency [facility] [id number] [facility] 2021-06-03 09:15:54 Emergency [facility] [id number] [facility] 2021-06-03 02:12:32 Emergency [facility] [id number] [facility] 2021-06-02 22:26:27 Emergency [facility] [id number] [facility] 2021-06-02 22:18:01 Emergency [facility] [id number] [facility] 2021-06-02 21:45:53 Emergency [facility] [id number] [facility] 2021-06-02 18:24:09 Emergency [facility] [id number] [facility] 2021-06-02 15[facility]33:14 [facility] [id number] [facility] 2021-06-02 13:53:03 Emergency [facility] [id number] [facility] 2021-06-02 11:21:12 Emergency [facility] [id number] [facility] 2021-06-02 07:19:21 Emergency [facility] [id number] [facility] 2021-06-02 02:28:47 Emergency [facility] [id number] [facility] 2021-06-02 00:03:36 Emergency [facility] [id number] [facility] 2021-06-01 18:26:39 Emergency [facility] [id number] [facility] 2021-06-01 16:19:54 Emergency [facility] [id number] [facility] 2021-06-01 07:53:57 Emergency [facility] [id number] [facility] 2021-05-31 22:36:25 Emergency [facility] [id number] [facility] 2021-05-31 19:41:41 Emergency [facility] [id number] [facility] 2021-05-31 10:37:26 [facility] [id number] [facility] 2021-05-31 04:43:40 [facility] [id number] [facility] 2021-05-30 23:56:43 [facility] [id number] [facility] 2021-05-30 21:10:05 Emergency [facility] [id number] [facility] 2021-05-30 16:21:58 Emergency [facility] [id number] [facility] 2021-05-30 14:28:28 Emergency [facility] [id number] [facility] 2021-05-30 11:04:08 Emergency [facility] [id number] [facility] 2024-10-18 10:00:00 2024-10-18 10:00:00 Outpatient R WILBERTO ANADANE [facility] [id number] [facility] 2024-10-08 11:05:00 2024-10-08 14:06:00 Emergency X JORGE YAÑEZ [facility] [id number] [facility] 2024-10-07 09:59:00 2024-10-07 14:13:00 Emergency X JORGE YAÑEZ [facility] [id number] [facility] 2024-10-07 00:00:00 2024-10-07 08:39:16 Referral Triage Milan Burns, Milan Dodd [facility] 1..840.114 350.1.13.70 8.2.7.2.686 [id number] [facility] 2024-10-06 10:30:00 2024-10-06 09:32:50 Outpatient R DAVID LADD [facility] [id number] [facility] 2024-10-05 00:00:00 2024-10-05 11:55:33 Telephone [facility] 1..840.114 350.1.13.10 4.2.7.2.686 [id number] 059 [id number] [facility] 2024-10-04 16:36:00 2024-10-04 20:25:00 Emergency Pia Watts Erin Laura [facility] 1..840.114 350.1.13.10 4.2.7.2.686 [id number] [id number] [facility] 2024-10-04 16:00:00 2024-10-04 16:36:55 Outpatient R BROOKS BARKER OGECHUKWU [facility] [id number] [facility] 2024-10-04 16:00:00 2024-10-04 16:36:55 Office Visit Brooks Barker [facility] 1..840.114 350.1.13.10 4.2.7.2.686 [id number] [facility] 2024-10-04 16:00:00 2024-10-04 16:00:00 Outpatient R BROOKS BARKER OGECHUKWU [facility] [id number] [facility] 2024-09-30 21:33:00 2024-10-03 15:30:00 Hospital Encounter Mary, Deena Mcgill, Jose Vogt, Stewart Valverde, Milan Simpson, Prema Mcfarland, Jose Engle, Criss Dodd, Marion Dodd, Michael Dodd [facility] 1..840.114 350.1.13.70 8.2.7.2.686 [id number] [facility] 2024-09-30 21:33:00 2024-10-03 15:30:00 Inpatient Emergency MICHAEL DODD [facility] Cardiology [id number] 1 [facility] 2024-09-29 15:30:00 2024-09-29 15:30:00 Office Visit David Ladd [facility] 1.2.840.114 350.1.13.10 4.2.7.2.686 [id number] [facility] 2024-09-29 14:45:00 2024-09-29 15:00:00 Manager Intermediate Visit 2, Adc Lab David Ladd 2, Adc Lab [facility] 1..840.114 350.1.13.10 4.2.7.2.686 [id number] [facility] 2024-09-29 14:20:00 2024-09-29 14:40:00 Office Visit Alea Arellano [facility] NAL [facility]ILD[facility] 1.84.114 350.1.13.10 4.2.7.2.686 [id number] [id number] [facility] 2024-09-29 15:30:00 2024-09-29 14:28:57 Outpatient R DAVID LADD [facility] [id number] [facility] 2024-09-23 11:30:00 2024-09-23 12:00:00 Case Management Alexander, Cardiomem Interp Billingsley, Loan Alexander, Cardiomem Interp [facility] OFFICE [facility] 1.84.114 350.1.13.10 4.2.7.2.686 [id number] [facility] 2024-09-23 11:30:00 2024-09-23 11:30:00 Outpatient R DONOVAN BILLINGSLEY [facility] [id number] [facility] 2024-09-21 00:00:00 2024-09-21 14:13:24 Transition of Care Flip Zavala Michele [address] 1..840.114 350.1.13.10 4.2.7.2.686 [id number] [facility] 2024-09-19 10:43:00 2024-09-20 16:55:00 Outpatient X BJ WEISS [facility] JOANA [id number] [facility] 2024-09-19 10:43:00 2024-09-20 16:55:00 Emergency Evon Frances Jelani [facility] 1.84.114 350.1.13.10 4.2.7.2.686 [id number] [facility] 2024-09-19 00:00:00 2024-09-19 15:21:27 Telephone LaddAnadane Gill.H. [facility] NAL [facility]ILD[facility] 1.2.840.114 350.1.13.10 4.2.7.2.686 [id number] [id number] [facility] 2024-09-19 00:00:00 2024-09-19 10:08:06 Telephone LaddDavid.H. [facility] 1.2.840.114 350.1.13.10 4.2.7.2.686 [id number] [id number] [facility] 2024-09-18 14:29:00 2024-09-18 18:06:00 Emergency X JOSEPH QUINONES [facility] [id number] [facility] 2024-09-18 14:29:00 2024-09-18 18:06:00 Emergency Joseph Quinones [facility] 1.2840.114 350.1.13.10 4.2.7.2.686 [id number] [id number] [facility] 2024-06-02 00:00:00 2024-09-17 06:42:53 Orders Only Alea Arellano [facility] [facility] 1.2840.114 350.1.13.10 4.2.7.2.686 [id number] [id number] [facility] 2024-07-13 00:00:00 2024-09-17 06:29:45 Orders Only Delicia Shaffer 1.2.840.1 44233.1.1 3.104.2.7 .3.382905 .8 [id number] [facility] 2024-09-01 00:00:00 2024-09-17 06:13:07 Orders Only Alea Arellano 1.2840.1 99963.1.1 3.104.2.7 .3.969326 .8 [id number] [facility] 2024-09-01 00:00:00 2024-09-17 06:12:36 Orders Only Alea Arellano 1.2.840.1 47977.1.1 3.104.2.7 .3.894633 .8 [id number] [facility] 2021-11-21 00:00:00 2024-09-17 02:48:57 Orders Only Abbie Mccall Farin B [facility] 1.2.840.114 350.1.13.10 4.2.7.2.686 [id number] [facility] 2023-11-06 00:00:00 2024-09-17 02:26:59 Orders Only Doctor Unassigned, [place] Doctor Unassigned, Tichigan [facility] 1.2.840.114 350.1.13.10 4.2.7.2.686 [id number] [facility] 2023-11-17 00:00:00 2024-09-17 02:19:04 Orders Only Doctor Unassigned, [place] Doctor Unassigned, [place]igan [facility] 1.2.840.114 350.1.13.10 4.2.7.2.686 [id number] [facility] 2024-09-02 00:00:00 2024-09-02 16:15:46 Brooks Izaguirre 1.2.840.1 17530.1.1 3.104.2.7 .3.583799 .8 [id number] [facility] 2024-09-02 00:00:00 2024-09-02 08:49:10 Case Management Jorge Heath 1.2.840.1 25693.1.1 3.104.2.7 .3.069164 .8 [id number] [facility] 2024-09-01 01:55:00 2024-09-01 23:59:00 Outpatient R ALEA ARELLANO CHOCKALINGA M [facility] [id number] [facility] 2024-09-01 01:55:00 2024-09-01 23:59:00 Hospital Encounter Alea Arellano 1.2.840.1 41090.1.1 3.104.2.7 .3.247314 .8 [id number] [facility] 2024-09-01 00:00:00 2024-09-01 00:00:00 Outpatient R ALEA ARELLANO CHOCKALINGA M [facility] [id number] [facility] 2024-08-30 11:30:00 2024-08-30 11:30:00 Outpatient R KIM PATE [facility] [id number] [facility] 2024-08-26 15:30:00 2024-08-26 15:30:00 Office Visit Brooks Barker 1.2.840.1 04169.1.1 3.104.2.7 .3.900892 .8 [id number] [facility] 2024-08-26 00:00:00 2024-08-26 15:06:01 Patient Outreach Rosa Maria Montiel 1.2.840.1 44093.1.1 3.104.2.7 .3.188990 .8 [id number] [facility] 2024-08-26 00:00:00 2024-08-26 14:47:15 Patient Outreach Adilene Petersen 1.2.840.1 88056.1.1 3.104.2.7 .3.225720 .8 [id number] [facility] 2024-08-26 15:30:00 2024-08-26 14:41:46 Outpatient R BROOKS BARKER OGECHUKWU [facility] [id number] [facility] 2024-08-26 00:00:00 2024-08-26 00:00:00 Travel 1.2.840.1 23518.1.1 3.104.2.7 .3.314883 .8 1.2.840.114 350.1.13.10 4.2.7.3.698 084.8 [id number] [facility] 2024-08-23 00:00:00 2024-08-23 11:46:22 Patient Outreach Adilene Petersen 1.2.840.1 44692.1.1 3.104.2.7 .3.149111 .8 [id number] [facility] 2024-08-23 00:00:00 2024-08-23 10:51:01 Transition of Care Flip Zavala 1.2.840.1 20860.1.1 3.104.2.7 .3.533212 .8 [id number] [facility] 2024-08-18 19:10:00 2024-08-19 14:30:00 Outpatient X CRISS LEYVA [facility] [id number] [facility] 2024-08-18 19:10:00 2024-08-19 14:30:00 [place] Moh[place]. [place], David 1.2.840.1 78239.1.1 3.104.2.7 .3.595799 .8 [id number] [facility] 2024-08-19 11:30:00 2024-08-19 12:00:00 Case Management Donovan Billingsley Cardiobalbir Garcia 1.2.840.1 24350.1.1 3.104.2.7 .3.929410 .8 [id number] [facility] 2024-08-19 11:30:00 2024-08-19 11:30:00 Outpatient R DONOVAN BILLINGSLEY [facility] [id number] [facility] 2024-08-18 00:00:00 2024-08-18 15:38:25 David Rodriguez 1.2.840.1 51559.1.1 3.104.2.7 .3.099036 .8 [id number] [facility] 2024-08-18 00:00:00 2024-08-18 00:00:00 Travel 1.2.840.1 56529.1.1 3.104.2.7 .3.157210 .8 1.2.840.114 350.1.13.10 4.2.7.3.698 084.8 [id number] [facility] 2024-08-17 00:00:00 2024-08-17 14:41:32 Patient Outreach Adilene Petersen 1.2.840.1 52837.1.1 3.104.2.7 .3.024797 .8 [id number] [facility] 2024-08-16 00:00:00 2024-08-16 16:48:56 Transition of Care Ayan Dodd 1.2.840.1 51844.1.1 3.104.2.7 .3.318036 .8 [id number] [facility] 2024-08-15 00:00:00 2024-08-15 16:52:59 Patient Outreach Adilene Petersen 1.2.840.1 29929.1.1 3.104.2.7 .3.240433 .8 [id number] [facility] 2024-08-09 11:40:00 2024-08-15 16:48:00 Inpatient X CHRISTOPHERDINORAAXEL ALEXANDREJAYLA, TAMERA [facility] [id number] [facility] 2024-08-09 11:40:00 2024-08-15 16:48:00 Hospital Encounter Michelle Miranda David Iturrizaga- [place], Jose C MansDinora stoddardef 1.2.840.1 82131.1.1 3.104.2.7 .3.653143 .8 [id number] [facility] 2024-08-15 00:00:00 2024-08-15 16:16:55 Patient Outreach Adilene Petersen 1.2.840.1 16260.1.1 3.104.2.7 .3.622942 .8 [id number] [facility] 2024-08-15 15:00:00 2024-08-15 15:00:00 Outpatient R BROOKS BARKER OGECHUKWU [facility] [id number] [facility] 2024-08-12 19:03:00 2024-08-12 21:00:00 Anesthesia Event Garret Montalvo Micah 1.2.840.1 54863.1.1 3.104.2.7 .3.608159 .8 [id number] [facility] 2024-08-12 14:00:00 2024-08-12 17:00:00 Surgery Martina Akhil Walls 1.2.840.1 43893.1.1 3.104.2.7 .3.851164 .8 [id number] [facility] 2024-08-11 14:00:00 2024-08-11 14:00:00 Outpatient R ALEA ARELLANO CHOCKALINGA M [facility] [id number] [facility] 2024-08-11 14:00:00 2024-08-11 14:00:00 Hospital Encounter Alea Arellano 1.2.840.1 09671.1.1 3.104.2.7 .3.069238 .8 [id number] [facility] 2024-08-09 00:00:00 2024-08-09 00:00:00 Travel 1.2.840.1 72277.1.1 3.104.2.7 .3.510682 .8 1.2.840.114 350.1.13.10 4.2.7.3.698 084.8 [id number] [facility] 2024-08-02 00:00:00 2024-08-02 11:59:52 Transition of Care Flip Zavala 1.2.840.1 44087.1.1 3.104.2.7 .3.684288 .8 [id number] [facility] 2024-07-31 13:49:00 2024-08-01 19:48:00 Outpatient X TIO PEREZ [facility] [id number] [facility] 2024-07-31 13:49:00 2024-08-01 19:48:00 Emergency Soni Soliman Amer 1.2.840.1 34532.1.1 3.104.2.7 .3.817642 .8 [id number] [facility] 2024-07-31 00:00:00 2024-07-31 00:00:00 Travel 1.2.840.1 09632.1.1 3.104.2.7 .3.674904 .8 1.2.840.114 350.1.13.10 4.2.7.3.698 084.8 [id number] [facility] 2024-07-28 14:25:00 2024-07-28 15:22:00 Emergency X MARY REYNAGA SANDRA [facility] [id number] [facility] 2024-07-28 14:25:00 2024-07-28 15:22:00 Emergency Mary Reynaga 1.2.840.1 78741.1.1 3.104.2.7 .3.818410 .8 [id number] [facility] 2024-07-28 00:00:00 2024-07-28 14:19:54 Telephone David Ladd 1.2.840.1 80859.1.1 3.104.2.7 .3.690224 .8 [id number] [facility] 2024-07-28 00:00:00 2024-07-28 00:00:00 Travel 1.2.840.1 86150.1.1 3.104.2.7 .3.772304 .8 1.2.840.114 350.1.13.10 4.2.7.3.698 084.8 [id number] [facility] 2024-07-25 10:00:00 2024-07-25 10:00:00 Outpatient R JONATHAN ZAPATA [facility] [id number] [facility] 2024-07-22 00:00:00 2024-07-22 14:10:04 Transition of Care Ayan Dodd 1.2.840.1 82019.1.1 3.104.2.7 .3.339116 .8 [id number] [facility] 2024-07-13 11:51:00 2024-07-21 17:10:00 Inpatient X GINO RICO KHALED [facility] [id number] [facility] 2024-07-13 11:51:00 2024-07-21 17:10:00 Hospital Encounter Jairo Jordan Khaled F 1.2.840.1 89150.1.1 3.104.2.7 .3.506190 .8 [id number] [facility] 2024-07-19 17:48:00 2024-07-19 18:48:00 Surgery Vrenon Weller 1.2.840.1 34152.1.1 3.104.2.7 .3.409282 .8 [id number] [facility] 2024-07-18 17:40:00 2024-07-18 17:40:00 Anesthesia Event Lorena Hendricks 1.2.840.1 04047.1.1 3.104.2.7 .3.726752 .8 [id number] [facility] 2024-07-18 09:50:00 2024-07-18 10:50:00 Surgery Alea Arellano 1.2.840.1 31610.1.1 3.104.2.7 .3.298887 .8 [id number] [facility] 2024-07-15 00:00:00 2024-07-15 15:20:15 Patient Outreach Adilene Petersen 1.2.840.1 67799.1.1 3.104.2.7 .3.652793 .8 [id number] [facility] 2024-07-15 10:00:00 2024-07-15 10:30:00 Case Management Gino Rico, Cardiomem Interp 1.2.840.1 67206.1.1 3.104.2.7 .3.608259 .8 [id number] [facility] 2024-07-13 11:00:00 2024-07-13 11:51:13 Office Visit David Ladd 1.2.840.1 92486.1.1 3.104.2.7 .3.913045 .8 [id number] [facility] 2024-07-13 11:30:00 2024-07-13 11:30:00 Office Visit Brooks Barker 1.2.840.1 70273.1.1 3.104.2.7 .3.529367 .8 [id number] [facility] 2024-07-13 10:45:00 2024-07-13 11:03:53 Manager Intermediate Visit Brooks Barker 2, Adc Lab 1.2.840.1 60006.1.1 3.104.2.7 .3.636135 .8 [id number] [facility] 2024-07-13 11:30:00 2024-07-13 10:44:05 Outpatient R BROOKS BARKER RBOOKS [facility] [id number] [facility] 2024-07-13 00:00:00 2024-07-13 00:00:00 Travel 1.2.840.1 72706.1.1 3.104.2.7 .3.469860 .8 1.2.840.114 350.1.13.10 4.2.7.3.698 084.8 [id number] [facility] 2024-07-06 00:00:00 2024-07-06 16:12:06 Transition of Care Juan M Zavalaele Orlin 1.2.840.1 30617.1.1 3.104.2.7 .3.197426 .8 [id number] [facility] 2024-07-06 15:00:00 2024-07-06 15:00:00 Outpatient R REBECCA MICHELE [facility] [id number] [facility] 2024-07-03 15:16:00 2024-07-04 12:10:00 Outpatient BJ PLASCENCIA [facility] [id number] [facility] 2024-07-03 15:16:00 2024-07-04 12:10:00 Emergency Michelle Miranda Jelani 1.2.840.1 57799.1.1 3.104.2.7 .3.754168 .8 [id number] [facility] 2024-07-03 00:00:00 2024-07-03 00:00:00 Travel 1.2.840.1 44721.1.1 3.104.2.7 .3.035785 .8 1.2.840.114 350.1.13.10 4.2.7.3.698 084.8 [id number] [facility] 2024-06-27 10:30:00 2024-06-27 10:30:00 Outpatient R DAVID LADD [facility] [id number] [facility] 2024-06-23 14:45:00 2024-06-23 14:45:00 Outpatient R TONYAGINOEdgar [facility] [id number] [facility] 2024-06-22 00:00:00 2024-06-22 13:45:52 Telephone Brooks Barker 1.2.840.1 97539.1.1 3.104.2.7 .3.859022 .8 [id number] [facility] 2024-06-21 00:00:00 2024-06-21 14:59:48 Telephone David LaddHTej 1.2.840.1 02757.1.1 3.104.2.7 .3.020402 .8 [id number] [facility] 2024-06-21 00:00:00 2024-06-21 14:24:10 Case Management Jorge Heath 1.2.840.1 96119.1.1 3.104.2.7 .3.922467 .8 [id number] [facility] 2024-06-20 11:15:00 2024-06-20 11:15:00 Manager Intermediate Visit Brooks Barker 2, Adc Lab 1.2.840.1 03735.1.1 3.104.2.7 .3.769743 .8 [id number] [facility] 2024-06-20 10:00:00 2024-06-20 10:25:15 Outpatient R BROOKS BARKER OGECHUKWU [facility] [id number] [facility] 2024-06-20 10:00:00 2024-06-20 10:25:15 Office Visit Brooks Barker 1.2.840.1 61396.1.1 3.104.2.7 .3.989040 .8 [id number] [facility] 2024-06-20 00:00:00 2024-06-20 00:00:00 Travel 1.2.840.1 49003.1.1 3.104.2.7 .3.151209 .8 1.2.840.114 350.1.13.10 4.2.7.3.698 084.8 [id number] [facility] 2024-06-10 10:30:00 2024-06-10 11:00:00 Case Management Kim Pate, Cardiobalbir Interakash 1.2.840.1 04360.1.1 3.104.2.7 .3.688811 .8 [id number] [facility] 2024-06-10 10:30:00 2024-06-10 10:30:00 Outpatient R KIM PATE [facility] [id number] [facility] 2024-06-06 00:00:00 2024-06-06 13:33:41 Telephone Mj Brooks 1.2.840.1 30865.1.1 3.104.2.7 .3.343196 .8 [id number] [facility] 2024-06-02 01:50:00 2024-06-02 23:59:00 Outpatient R ALEA ARELLANO CHOCKALINGA M [facility] [id number] [facility] 2024-06-02 01:50:00 2024-06-02 23:59:00 [facility] Alea Arellano 1.2.840.1 23639.1.1 3.104.2.7 .3.214025 .8 [id number] [facility] 2024-06-02 09:00:00 2024-06-02 09:00:00 Outpatient R [facility] [id number] [facility] 2024-06-01 10:30:00 2024-06-01 10:30:00 Office Visit David Ladd 1.2.840.1 32400.1.1 3.104.2.7 .3.217614 .8 [id number] [facility] 2024-06-01 10:30:00 2024-06-01 10:02:21 Outpatient R DAVID LADD [facility] [id number] [facility] 2024-06-01 00:00:00 2024-06-01 00:00:00 Travel 1.2.840.1 27817.1.1 3.104.2.7 .3.429523 .8 1.2.840.114 350.1.13.10 4.2.7.3.698 084.8 [id number] [facility] 2024-05-25 15:00:00 2024-05-25 15:00:00 Outpatient R JEANNA KAMARA LAUREN [facility] [id number] [facility] 2024-05-20 14:00:00 2024-05-20 15:00:36 Outpatient R BROOKS BARKER OGECHUKWU [facility] [id number] [facility] 2024-05-20 14:00:00 2024-05-20 15:00:36 Office Visit Brooks Barker 1.2.840.1 93186.1.1 3.104.2.7 .3.857396 .8 [id number] [facility] 2024-05-20 00:00:00 2024-05-20 00:00:00 Travel 1.2.840.1 85795.1.1 3.104.2.7 .3.321076 .8 1.2.840.114 350.1.13.10 4.2.7.3.698 084.8 [id number] [facility] 2024-05-18 00:00:00 2024-05-18 12:34:32 Transition of Care Flip Zavala 1.2.840.1 19186.1.1 3.104.2.7 .3.615919 .8 [id number] [facility] 2024-05-15 00:12:00 2024-05-17 18:00:00 Inpatient X RIC YARED [facility] [id number] [facility] 2024-05-15 00:12:00 2024-05-17 18:00:00 Hospital Encounter Pia Watts Yared Larios. 1.2.840.1 87368.1.1 3.104.2.7 .3.829419 .8 [id number] [facility] 2024-05-15 00:00:00 2024-05-15 00:00:00 Travel 1.2.840.1 34509.1.1 3.104.2.7 .3.601440 .8 1.2.840.114 350.1.13.10 4.2.7.3.698 084.8 [id number] [facility] 2024-05-05 00:00:00 2024-05-06 15:13:04 Brooks Izaguirre [facility] 1.2840.114 350.1.13.10 4.2.7.2.686 [id number] [facility] 2024-05-06 12:00:00 2024-05-06 12:30:00 Case Management Alexander, Cardiomem Donovan Sanchez Cardiomem Radha [facility] 1.2.840.114 350.1.13.10 4.2.7.2.686 [id number] [facility] 2024-05-06 12:00:00 2024-05-06 12:00:00 Outpatient R DONOVAN BILLINGSLEY [facility] [id number] [facility] 2024-04-28 08:00:52 2024-04-28 23:59:00 Outpatient R DAVID LADD [facility] [id number] [facility] 2024-04-28 08:00:52 2024-04-28 23:59:00 Hospital Encounter David LaddTej [facility] 1.2.840.114 350.1.13.10 4.2.7.2.686 [id number] [facility] 2024-04-25 11:30:00 2024-04-25 11:30:00 Office Visit Ana Ladddane KaelynTej [facility] 1.2.840.114 350.1.13.10 4.2.7.2.686 [id number] [facility] 2024-04-25 11:30:00 2024-04-25 10:56:30 Outpatient R ANA LADDDANE [facility] [id number] [facility] 2024-04-18 00:00:00 2024-04-20 13:08:56 Antonioill Brooks Barker [facility] 1.2.840.114 350.1.13.10 4.2.7.2.686 [id number] [facility] 2024-04-19 10:00:00 2024-04-19 10:30:00 [facility] 1.2.840.114 350.1.13.10 4.2.7.2.686 [id number] [facility] 2024-04-19 10:00:00 2024-04-19 10:00:00 Outpatient R DEYSI BONE SELENA [facility] [id number] [facility] 2024-04-18 00:00:00 2024-04-19 08:42:53 Telephone Brooks Barker [facility] 1.2.840.114 350.1.13.10 4.2.7.2.686 [id number] [facility] 2024-04-18 00:00:00 2024-04-18 17:24:59 Refill Brooks Barker [facility] 1.2.840.114 350.1.13.10 4.2.7.2.686 [id number] [id number] [facility] 2024-04-18 13:00:00 2024-04-18 13:00:00 Outpatient R REBECCA MICHELE [facility] [id number] [facility] 2024-04-13 13:00:00 2024-04-13 13:00:00 Office Visit Brooks Barker [facility] 1.2.840.114 350.1.13.10 4.2.7.2.686 [id number] [facility] 2024-04-13 12:00:00 2024-04-13 12:00:00 Office Visit Brooks Barker [facility] 1.2.840.114 350.1.13.10 4.2.7.2.686 [id number] [facility] 2024-04-13 13:00:00 2024-04-13 10:36:08 Outpatient R BROOKS BARKER OGECHUKWU [facility] [id number] [facility] 2024-04-07 00:00:00 2024-04-07 14:33:35 Transition of Care Flip Zavala Michele [facility] 1.2.840.114 350.1.13.10 4.2.7.2.686 [id number] [facility] 2024-04-06 14:30:00 2024-04-06 14:30:00 [facility] [id number] [facility] 2024-04-04 12:00:00 2024-04-06 12:17:00 Outpatient X BJ WEISS [facility] [id number] [facility] [facility]-04-04 12:00:00 2024-04-06 12:17:00 Hospital Encounter MirandaMichelle Bj Weiss [facility] 1.2.840.114 350.1.13.10 4.2.7.2.686 [id number] [facility] 2024-04-05 00:00:00 2024-04-05 16:22:38 [facility] 1.2.840.114 350.1.13.10 4.2.7.2.686 [id number] [facility] 2024-04-05 11:30:00 2024-04-05 11:30:00 Outpatient DAVID MATUTE [facility] [id number] [facility] 2024-04-01 11:00:00 2024-04-01 11:30:00 Case Management Ellis Munoz [place], Cardiomem Interp [facility] MEDICAL OFFICE BUILDING 1.2.840.114 350.1.13.10 4.2.7.2.686 [id number] [facility] 2024-04-01 11:00:00 2024-04-01 11:00:00 Outpatient KIM GUPTA [facility] [id number] [facility] 2024-03-24 09:00:00 2024-03-24 09:00:00 Outpatient R DAVID LADD [facility] [id number] [facility] 2024-03-22 00:00:00 2024-03-22 11:12:36 [facility] 1.2.840.114 350.1.13.10 4.2.7.2.686 [id number] [facility] 2024-03-10 16:00:00 2024-03-10 16:00:00 Outpatient R DEYSI BONE SELENA [facility] [id number] [facility] 2024-03-04 19:39:00 2024-03-04 21:54:00 Emergency X LYDIA EMIL [facility] ERT [id number] [facility] 2024-03-04 19:39:00 2024-03-04 21:54:00 Emergency Lornaedmannygiselaevette Faridadane [facility] 1..840.114 350.1.13.10 4.2.7.2.686 [id number] [facility] 2024-02-26 10:30:00 2024-02-26 11:00:00 Case Management Alexander Cardiobalbir Billingsley [facility] MEDICAL OFFICE BUILDING 1.2.840.114 350.1.13.10 4.2.7.2.686 [id number] [facility] 2024-02-26 10:30:00 2024-02-26 10:30:00 Outpatient R JOSE CRUZ [facility] [id number] [facility] 2024-02-25 00:00:00 2024-02-25 15:47:18 Telephone Brooks Barker [facility] BUILDING 1.2.840.114 350.1.13.10 4.2.7.2.686 [id number] [id number] [facility] 2024-02-25 00:00:00 2024-02-25 13:35:04 Telephone Brooks Barker [facility] BUILDING 1.2.840.114 350.1.13.10 4.2.7.2.686 [id number] [id number] [facility] 2024-02-25 00:00:00 2024-02-25 08:10:38 Telephone Brooks Barker [facility] BUILDING 1.2.840.114 350.1.13.10 4.2.7.2.686 [id number] [id number] [facility] 2024-02-03 00:00:00 2024-02-03 15:29:57 Telephone Brooks Barker [facility] BUILDING 1.2.840.114 350.1.13.10 4.2.7.2.686 [id number] [id number] [facility] 2024-01-29 11:00:00 2024-01-29 11:30:00 Case Management Ellis Munoz Interakash Billingsley [facility] MEDICAL OFFICE BUILDING 1.2.840.114 350.1.13.10 4.2.7.2.686 [id number] [facility] 2024-01-29 11:00:00 2024-01-29 11:00:00 Outpatient R BILLINGSLEY, [facility] [id number] [facility] 2024-01-18 00:00:00 2024-01-20 14:22:19 Telephone Brooks Barker [facility] BUILDING 1.2.840.114 350.1.13.10 4.2.7.2.686 [id number] [id number] [facility] 2020-08-23 00:00:00 2024-01-19 02:21:10 Mobile Device Encounter Emani Debby Vázquez [facility] 1.2.840.114 350.1.13.10 4.2.7.2.686 [id number] [facility] 2024-01-13 00:00:00 2024-01-13 14:24:33 Case Management Leoncio Jorge [facility] 1.2.840.114 350.1.13.10 4.2.7.2.686 [id number] [facility] 2024-01-13 00:00:00 2024-01-13 11:48:09 Telephone Brooks Barker [facility] 1.2.840.114 350.1.13.10 4.2.7.2.686 [id number] [facility] 2024-01-06 14:45:00 2024-01-06 14:45:00 Outpatient R ROBERTO STOKES ROBERTO [facility] [id number] [facility] 2024-01-05 14:00:00 2024-01-05 14:11:14 Outpatient R BROOKS BARKER OGECHUKWU [facility] [id number] [facility] 2024-01-05 14:00:00 2024-01-05 14:11:14 Office Visit Brooks Barker [facility] 1.2.840.114 350.1.13.10 4.2.7.2.686 [id number] [facility] 2023-12-25 10:00:00 2023-12-25 10:00:00 Outpatient DAVID MATUTE [facility] [id number] [facility] 2023-12-18 13:30:00 2023-12-18 14:00:00 Case Management Ellis Munoz [facility] OFFICE BUILDING 1.2.840.114 350.1.13.10 4.2.7.2.686 [id number] [facility] 2023-12-18 13:30:00 2023-12-18 13:30:00 Outpatient R DAVID LADD [facility] [id number] [facility] 2023-11-25 00:00:00 2023-11-25 00:00:00 Outpatient R [facility] [id number] [facility] 2023-11-24 00:00:00 2023-11-24 00:00:00 Telephone David Ladd [facility] 1.2.840.114 350.1.13.10 4.2.7.2.686 [id number] [facility] 2023-11-23 00:00:00 2023-11-23 00:00:00 Telephone David Ladd [facility] 1.2.840.114 350.1.13.10 4.2.7.2.686 [id number] [facility] 2023-11-19 08:30:00 2023-11-19 08:30:00 Manager Intermediate Visit 2, Adc Lab David Ladd [facility] 1.2.840.114 350.1.13.10 4.2.7.2.686 [id number] [facility] 2023-11-19 08:30:00 2023-11-19 08:05:24 Outpatient R DAVID LADD [facility] [id number] [facility] 2023-11-18 14:30:00 2023-11-18 15:23:43 Outpatient R DAVID LADD [facility] [id number] [facility] 2023-11-18 14:30:00 2023-11-18 15:23:43 Office Visit David Ladd [facility] BUILDING 1.2.840.114 350.1.13.10 4.2.7.2.686 [id number] [facility] 2023-11-13 16:30:00 2023-11-13 17:00:00 Case Management Alexander Cardiomem Interp Jose Cruz [facility] MEDICAL OFFICE BUILDING 1.2.840.114 350.1.13.10 4.2.7.2.686 [id number] [facility] 2023-11-13 16:30:00 2023-11-13 16:30:00 Outpatient R JOSE CRUZ [facility] [id number] [facility] 2023-10-09 13:30:00 2023-10-09 13:30:00 Outpatient R BILLINGSLEY, [facility] [id number] [facility] 2023-10-06 00:00:00 2023-10-06 00:00:00 Outpatient R [facility] [id number] [facility] 2023-09-04 09:00:00 2023-09-04 09:30:00 Case Management [facility] 1.2.840.114 350.1.13.10 4.2.7.2.686 [id number] [facility] 2023-09-04 09:00:00 2023-09-04 09:00:00 [facility] [id number] [facility] 2023-09-02 13:30:00 2023-09-02 14:05:21 Outpatient R DAVID LADD [facility] [id number] [facility] 2023-09-02 13:30:00 2023-09-02 14:05:21 Office Visit David Ladd [facility] BUILDING 1.2.840.114 350.1.13.10 4.2.7.2.686 [id number] [facility] 2023-09-02 00:00:00 2023-09-02 00:00:00 Orders Only Doctor Unassigned, [place] [facility] 1.2840.114 350.1.13.10 4.2.7.2.686 [id number] [facility] 2023-09-01 00:00:00 2023-09-01 00:00:00 Outpatient R [facility] [id number] [facility] 2023-08-27 00:00:00 2023-08-27 00:00:00 Outpatient R [facility] [id number] [facility] 2023-08-06 00:00:00 2023-08-06 00:00:00 Telephone Cornelia Sanderson [facility] BUILDING 1.2.840.114 350.1.13.10 4.2.7.2.686 [id number] [facility] 2023-08-04 00:00:00 2023-08-04 00:00:00 Telephone David Ladd [facility] BUILDING 1.2.840.114 350.1.13.10 4.2.7.2.686 [id number] [facility] 2023-07-31 08:00:00 2023-07-31 08:30:00 Case Management Alexander, Cardiomem InterJonathan Gleason [facility] MEDICAL OFFICE BUILDING 1.2.840.114 350.1.13.10 4.2.7.2.686 [id number] [facility] 2023-07-31 08:00:00 2023-07-31 08:00:00 Outpatient R JONATHAN ZAPATA [facility] [id number] [facility] 2023-07-30 13:12:17 2023-07-30 23:59:00 Outpatient R DAVID LADD [facility] [id number] [facility] 2023-07-30 13:12:17 2023-07-30 23:59:00 Hospital Encounter David Ladd [facility] BUILDING 1..840.114 350.1.13.10 4.2.7.2.686 [id number] [facility] 2023-06-19 08:00:00 2023-06-19 08:30:00 Case Management Alexander Cardiobalbir Schmidakash Billingsley [facility] MEDICAL OFFICE BUILDING 1..840.114 350.1.13.10 4.2.7.2.686 [id number] [facility] 2023-06-19 08:00:00 2023-06-19 08:00:00 Outpatient R JOSE CRUZ [facility] [id number] [facility] 2023-06-03 00:00:00 2023-06-03 00:00:00 Outpatient R [facility] [id number] [facility] 2023-06-03 00:00:00 2023-06-03 00:00:00 Orders Only Doctor Unassigned, [place] [facility] 1..840.114 350.1.13.10 4.2.7.2.686 [id number] [facility] 2023-05-22 14:30:00 2023-05-22 15:00:00 Case Management Alexander Cardiom InterJonathan Gleason [facility] MEDICAL OFFICE BUILDING 1..840.114 350.1.13.10 4.2.7.2.686 [id number] [facility] 2023-05-22 14:30:00 2023-05-22 14:30:00 Outpatient R JONATHAN ZAPATA [facility] [id number] [facility] 2023-05-07 09:00:00 2023-05-07 09:00:00 Outpatient R SEBLE PRICE [facility] [id number] [facility] 2023-05-04 00:00:00 2023-05-04 00:00:00 Orders Only Doctor Unassigned, [place] [facility] 1.840.114 350.1.13.10 4.2.7.2.686 [id number] [facility] 2023-05-01 10:30:00 2023-05-01 11:04:31 Outpatient DAVID MATUTE [facility] [id number] [facility] 2023-05-01 10:30:00 2023-05-01 11:04:31 Office Visit David Ladd [facility] NAL BUILDING 1.840.114 350.1.13.10 4.2.7.2.686 [id number] [facility] 2023-04-17 16:00:00 2023-04-17 16:30:00 Case Management Ellis Munoz Trudy [facility] OFFICE BUILDING 1..840.114 350.1.13.10 4.2.7.2.686 [id number] [facility] 2023-04-17 16:00:00 2023-04-17 16:00:00 Outpatient JONATHAN DIAZ [facility] [id number] [facility] 2023-04-09 10:15:00 2023-04-09 10:40:41 Office Visit Seble Price [facility] 1.84.114 350.1.13.10 4.2.7.2.686 [id number] [facility] 2023-04-09 09:00:00 2023-04-09 09:00:00 Outpatient R KELLY KNOWLES [facility] [id number] [facility] 2023-03-27 20:26:00 2023-03-28 05:56:00 Emergency X JORGE YAÑEZ [facility] ERT [id number] [facility] 2023-03-27 20:26:00 2023-03-28 05:56:00 Emergency Jorge Yañez [facility] 1.840.114 350.1.13.10 4.2.7.2.686 [id number] [facility] 2023-03-13 15:30:00 2023-03-13 16:00:00 Case Management Ellis MunozJonathan [facility] MEDICAL OFFICE BUILDING 1..840.114 350.1.13.10 4.2.7.2.686 [id number] [facility] 2023-03-13 15:30:00 2023-03-13 15:30:00 Outpatient R NEFTALI JONATHAN [facility] [id number] [facility] 2023-02-09 09:00:00 2023-02-09 09:00:00 Outpatient R DAVID LADD [facility] [id number] [facility] 2023-02-06 11:07:00 2023-02-06 23:59:00 Hospital Encounter Rebecca Palmer BUILDING 1.840.114 350.1.13.10 4.2.7.2.686 [id number] [facility] 2023-02-06 14:30:00 2023-02-06 15:00:00 Case Management Ellis MunozJonathan [facility] MEDICAL OFFICE BUILDING 1..840.114 350.1.13.10 4.2.7.2.686 [id number] [facility] 2023-02-06 14:30:00 2023-02-06 14:30:00 Outpatient R JONATHAN ZAPATA [facility] [id number] [facility] 2023-02-06 00:00:00 2023-02-06 00:00:00 Outpatient R JONATHAN ZAPATA [facility] [id number] [facility] 2023-01-02 10:30:00 2023-01-02 11:00:00 Case Management Ellis Munoz Trudy [facility] MEDICAL OFFICE BUILDING 1.2.840.114 350.1.13.10 4.2.7.2.686 [id number] [facility] 2023-01-02 10:30:00 2023-01-02 10:30:00 Outpatient R JONATHAN ZAPATA [facility] [id number] [facility] 2022-11-28 12:00:00 2022-11-28 16:59:18 Case Management Ellis Munoz Loan [facility] MEDICAL OFFICE BUILDING 1.2.840.114 350.1.13.10 4.2.7.2.686 [id number] [facility] 2022-11-28 12:00:00 2022-11-28 12:00:00 Outpatient R JOSE CRUZ [facility] [id number] [facility] 2022-10-27 10:30:00 2022-10-27 11:10:01 Outpatient DAVID MATUTE [facility] [id number] [facility] 2022-10-27 10:30:00 2022-10-27 11:10:01 Office Visit David Ladd [facility] BUILDING 1.2.840.114 350.1.13.10 4.2.7.2.686 [id number] [facility] 2022-10-27 00:00:00 2022-10-27 00:00:00 Orders Only Doctor Unassigned, [place] [facility] 1.2.840.114 350.1.13.10 4.2.7.2.686 [id number] [facility] 2022-10-24 12:30:00 2022-10-24 13:00:00 Case Management Ellis Munoz Trudy Hien [facility] MEDICAL OFFICE BUILDING 1.2.840.114 350.1.13.10 4.2.7.2.686 [id number] [facility] 2022-10-24 12:30:00 2022-10-24 12:30:00 Outpatient R NEFTALI JONATHAN [facility] [id number] [facility] 2022-10-02 08:20:00 2022-10-02 23:59:00 Outpatient R DAVID LADD [facility] [id number] [facility] 2022-09-24 10:00:00 2022-09-24 12:09:47 Outpatient R TANA WHITMORE [facility] [id number] [facility] 2022-09-24 10:00:00 2022-09-24 12:09:47 Office Visit Tana Whitmore [facility] NAL BUILDING 1.2.840.114 350.1.13.10 4.2.7.2.686 [id number] [facility] 2022-09-19 10:00:00 2022-09-19 10:30:00 Case Management Ellis Munoz [facility] MEDICAL OFFICE BUILDING 1.2.840.114 350.1.13.10 4.2.7.2.686 [id number] [facility] 2022-09-19 10:00:00 2022-09-19 10:00:00 Outpatient R BILLINGSLEY, [facility] [id number] [facility] 2022-08-27 00:00:00 2022-08-27 00:00:00 Orders Only Doctor Unassigned, [place] [facility] 1.2840.114 350.1.13.10 4.2.7.2.686 [id number] [facility] 2022-08-21 10:00:00 2022-08-21 10:08:22 Outpatient R DAVID LADD [facility] [id number] [facility] 2022-08-21 10:00:00 2022-08-21 10:08:22 Office Visit David Ladd [facility] NAL BUILDING 1.2.840.114 350.1.13.10 4.2.7.2.686 [id number] [facility] 2022-08-21 09:20:00 2022-08-21 09:40:00 Office Visit Cornelia Sanderson [facility] BUILDING 1.2.840.114 350.1.13.10 4.2.7.2.686 [id number] [facility] 2022-08-15 11:00:00 2022-08-15 11:30:00 Case Management Alexander CardioJonathan Ballesteros [facility] MEDICAL OFFICE BUILDING 1.2.840.114 350.1.13.10 4.2.7.2.686 [id number] [facility] 2022-08-15 11:00:00 2022-08-15 11:00:00 Outpatient R JONATHAN ZAPATA [facility] [id number] [facility] 2022-07-14 00:00:00 2022-07-14 00:00:00 Telephone Maria E Fischer [facility] BUILDING 1.2.840.114 350.1.13.10 4.2.7.2.686 [id number] [facility] 2022-07-11 11:00:00 2022-07-11 11:30:00 Case Management Ellis Munoz Jonathan [facility] MEDICAL OFFICE BUILDING 1..114 350.1.13.10 4.2.7.2.686 [id number] [facility] 2022-07-11 11:00:00 2022-07-11 11:00:00 Outpatient R JONATHAN ZAPATA [facility] [id number] [facility] 2022-06-30 16:30:00 2022-06-30 16:30:00 Outpatient R JUAN MAZARIEGOS [facility] [id number] [facility] 2022-06-17 14:20:00 2022-06-17 14:20:00 Outpatient TANA BURTON [facility] [id number] [facility] 2022-06-16 00:00:00 2022-06-16 00:00:00 Telephone Adrianna Heath [facility] 1.0.114 350.1.13.10 4.2.7.2.686 [id number] [facility] 2022-06-13 15:30:00 2022-06-13 15:30:00 Outpatient ADRIANNA LUCAS [facility] [id number] [facility] 2022-06-12 00:00:00 2022-06-12 00:00:00 Orders Only Doctor Unassigned, [place] [facility] 1.0.114 350.1.13.10 4.2.7.2.686 [id number] [facility] 2022-06-10 00:00:00 2022-06-10 00:00:00 Transition of Care Page Seth 1.840.114 350.1.13.10 4.2.7.2.686 [id number] [facility] 2022-06-10 00:00:00 2022-06-10 00:00:00 Orders Only Doctor Unassigned, [place] [facility] 1.2.840.114 350.1.13.10 4.2.7.2.686 [id number] [facility] 2022-06-05 15:57:00 2022-06-09 18:30:00 Inpatient X BJ WEISS [facility] JOANA [id number] [facility] 2022-06-05 15:57:00 2022-06-09 18:30:00 Hospital Encounter [place], Jesse Leyva, Bj Estrada [facility] 1.2.840.114 350.1.13.10 4.2.7.2.686 [id number] [facility] 2022-06-06 11:00:00 2022-06-06 11:30:00 Case Management Ellis Munoz Trudy [facility] MEDICAL OFFICE BUILDING 1.2.840.114 350.1.13.10 4.2.7.2.686 [id number] [facility] 2022-06-05 00:00:00 2022-06-05 00:00:00 Telephone Cornelia Sanderson [facility] PROFESSIO NAL BUILDING 1.2.840.114 350.1.13.10 4.2.7.2.686 [id number] [facility] 2022-06-04 07:48:00 2022-06-04 10:01:00 Emergency X KIMI YADAV [facility] ERT [id number] [facility] 2022-06-04 07:48:00 2022-06-04 10:01:00 Emergency Kimi Yadav S [facility] 1.2.840.114 350.1.13.10 4.2.7.2.686 [id number] [facility] 2022-06-04 00:00:00 2022-06-04 00:00:00 Transition of Care Page Seth 1.2.840.114 350.1.13.10 4.2.7.2.686 [id number] [facility] 2022-06-01 12:35:00 2022-06-03 11:25:00 Inpatient X BJ WEISS [facility] [id number] [facility] 2022-06-01 12:35:00 2022-06-03 11:25:00 Hospital Encounter Asad Armendariz Jelani [facility] 1.2.840.114 350.1.13.10 4.2.7.2.686 [id number] [facility] 2022-05-28 06:31:00 2022-05-28 13:37:[address] [facility] [id number] [facility] 2022-05-28 06:31:00 2022-05-28 13:37:00 Hospital Encounter [facility] 1.2.840.114 350.1.13.10 4.2.7.2.686 [id number] [facility] 2022-05-28 00:00:00 2022-05-28 00:00:00 Transition of Care AricperezLilli Wandy [facility] 1.2.840.114 350.1.13.10 4.2.7.2.686 [id number] [facility] 2022-05-23 00:00:00 2022-05-23 00:00:00 Telephone [facility] 1.2.840.114 350.1.13.10 4.2.7.2.686 [id number] [facility] 2022-05-22 10:49:00 2022-05-22 15:18:00 Emergency X MARY REYNAGA [facility] ERT [id number] [facility] 2022-05-22 10:49:00 2022-05-22 15:18:00 Emergency Mary Reynaga [facility] 1.2840.114 350.1.13.10 4.2.7.2.686 [id number] [facility] 2022-05-22 00:00:00 2022-05-22 00:00:00 Telephone Kim Jones [facility] 1.2.840.114 350.1.13.10 4.2.7.2.686 [id number] [facility] 2022-05-21 10:00:00 2022-05-21 10:00:00 Outpatient R TANA WHITMORE [facility] [id number] [facility] 2022-05-20 15:40:00 2022-05-20 15:40:00 Outpatient R MYRANDA TANA [facility] [id number] [facility] 2022-05-20 12:02:00 2022-05-20 13:33:00 Emergency Doris Amaral [facility] 1..840.114 350.1.13.10 4.2.7.2.686 [id number] [facility] 2022-05-20 09:30:00 2022-05-20 09:30:00 Office Visit Prudence Cohen [facility] 1.2.840.114 350.1.13.10 4.2.7.2.686 [id number] [facility] 2022-05-20 09:30:00 2022-05-20 09:08:19 Outpatient R DIOGO COHENTNEY [facility] ERT [id number] [facility] 2022-05-20 00:00:00 2022-05-20 00:00:00 Telephone David Ladd [facility] 1.2.840.114 350.1.13.10 4.2.7.2.686 [id number] [facility] 2022-05-20 00:00:00 2022-05-20 00:00:00 [facility] 1.2.840.114 350.1.13.10 4.2.7.2.686 [id number] [facility] 2022-05-19 13:30:00 2022-05-19 14:40:01 Office Visit Minerva Barkerveronique [facility] 1.2840.114 350.1.13.10 4.2.7.2.686 [id number] [facility] 2022-05-19 10:00:00 2022-05-19 10:00:00 Outpatient ADRIANNA LUCAS [facility] [id number] [facility] 2022-05-16 08:15:00 2022-05-16 08:15:00 Outpatient KIM HU [facility] [id number] [facility] 2022-05-16 00:00:00 2022-05-16 00:00:00 Transition of Care Chelo Mata 1.2840.114 350.1.13.10 4.2.7.2.686 [id number] [facility] 2022-05-11 02:38:00 2022-05-15 18:44:00 Hospital Encounter Elise, Hallie Cardozo Khaled [facility] 1.2840.114 350.1.13.10 4.2.7.2.686 [id number] [facility] 2022-05-14 09:40:00 2022-05-14 09:40:00 Outpatient R SUNSHINE KLEIN STRAHIL [facility] [id number] [facility] 2022-05-14 00:00:00 2022-05-14 00:00:00 Telephone Sunshine Klein [facility] 1.2.840.114 350.1.13.10 4.2.7.2.686 [id number] [facility] 2022-05-12 15:00:00 2022-05-12 15:00:00 Outpatient R JUAN MAZARIEGOS [facility] [id number] [facility] 2022-05-10 00:00:00 2022-05-10 00:00:00 Nurse Triage Alisa Gonzalez [facility] 1..840.114 350.1.13.10 4.2.7.2.686 [id number] [facility] 2022-05-09 14:14:00 2022-05-09 16:59:00 Emergency X PIA WATTS [facility] [id number] [facility] 2022-05-09 14:14:00 2022-05-09 16:59:00 Emergency Pia Watts [facility] 1.2.840.114 350.1.13.10 4.2.7.2.686 [id number] [facility] 2022-05-09 13:30:00 2022-05-09 14:01:50 Outpatient R BROOKS BARKER OGECHUKWU [facility] [id number] [facility] 2022-05-09 13:30:00 2022-05-09 14:01:50 Office Visit Brooks Barker [facility] 1.2.840.114 350.1.13.10 4.2.7.2.686 [id number] [facility] 2022-05-09 13:30:00 2022-05-09 14:01:50 Outpatient R MJ NUDonnieVeronique MJ NUDonnieVeronique [facility] [id number] [facility] 2022-05-07 00:00:00 2022-05-07 00:00:00 Transition of Care Chelo Mata ALEX [facility] 1.2840.114 350.1.13.10 4.2.7.2.686 [id number] [facility] 2022-05-05 14:17:00 2022-05-06 11:24:00 Outpatient X CRISS LEYVA [facility] [id number] [facility] 2022-05-05 14:17:00 2022-05-06 11:24:00 Emergency [facility] 1.2840.114 350.1.13.10 4.2.7.2.686 [id number] [facility] 2022-05-03 00:00:00 2022-05-03 00:00:00 RefHoward Gutierrezcarolinaaris [facility] 1.2.840.114 350.1.13.10 4.2.7.2.686 [id number] [facility] 2022-05-01 00:00:00 2022-05-01 00:00:00 Transition of Care Page Seth 1.2.840.114 350.1.13.10 4.2.7.2.686 [id number] [facility] 2022-04-29 10:27:00 2022-04-30 11:35:00 Outpatient X BJ WEISS [facility] [id number] [facility] 2022-04-29 10:27:00 2022-04-30 11:35:00 Emergency Denis Knox Jelani [facility] 1.2840.114 350.1.13.10 4.2.7.2.686 [id number] [facility] 2022-04-28 13:00:00 2022-04-28 14:02:49 Outpatient R KIM JONES [facility] [id number] [facility] 2022-04-28 13:00:00 2022-04-28 14:02:49 Office Visit Kim Jones [facility] 1.2.840.114 350.1.13.10 4.2.7.2.686 [id number] [facility] 2022-04-24 00:00:00 2022-04-24 00:00:00 Transition of Care Merry Erica Kimberly NOObinna [facility] 1..840.114 350.1.13.10 4.2.7.2.686 [id number] [facility] 2022-04-22 08:43:00 2022-04-23 11:50:00 Outpatient X CRISS LEYVA [facility] [id number] [facility] 2022-04-22 08:43:00 2022-04-23 11:50:00 Emergency Pia Watts David [facility] 1.840.114 350.1.13.10 4.2.7.2.686 [id number] [facility] 2022-04-17 07:23:00 2022-04-17 08:09:00 Emergency PIA GRANADO [facility] [id number] [facility] 2022-04-17 07:23:00 2022-04-17 08:09:00 Emergency Pia Watts [facility] 1.2.840.114 350.1.13.10 4.2.7.2.686 [id number] [facility] 2022-04-16 14:00:00 2022-04-16 14:00:00 Outpatient [facility] [id number] [facility] 2022-04-15 13:39:00 2022-04-15 16:22:00 Emergency X STACIE JOSEPH [facility] [id number] [facility] 2022-04-15 13:39:00 2022-04-15 16:22:00 Emergency Joseph Quinones [facility] 1.2.840.114 350.1.13.10 4.2.7.2.686 [id number] [facility] 2022-04-09 16:00:00 2022-04-09 16:00:00 Outpatient [facility] [id number] [facility] 2022-04-09 00:00:00 2022-04-09 00:00:00 Orders Only Doctor Unassigned, [place] [facility] 1.2840.114 350.1.13.10 4.2.7.2.686 [id number] [facility] 2022-04-03 00:00:00 2022-04-03 00:00:00 Transition of Care Page Seth 1.2840.114 350.1.13.10 4.2.7.2.686 [id number] [facility] 2022-03-28 19:05:00 2022-04-02 15:00:00 Inpatient X LYNN CARRIONIZA [facility] [id number] [facility] 2022-03-28 19:05:00 2022-04-02 15:00:00 Hospital Encounter Karine Loja, Steven Gamino, Fran Tonya Carrion [facility] 1.2.840.114 350.1.13.10 4.2.7.2.686 [id number] [facility] 2022-03-28 19:05:00 2022-04-02 15:00:00 Inpatient X YLNN CARRIONIZA [facility] [id number] [facility] 2022-04-01 14:00:00 2022-04-01 14:00:00 Out[facility] R [facility] [id number] [facility] 2022-04-01 14:00:00 2022-04-01 14:00:00 Outpatient R [facility]ADD, [facility] [id number] [facility] 2022-04-01 14:00:00 2022-04-01 14:00:00 Outpatient R LADD, [facility] [id number] [facility] 2022-03-28 00:00:00 2022-03-28 00:00:00 [facility] 1.2.840.114 350.1.13.10 4.2.7.2.686 [id number] [facility] 2022-03-27 00:00:00 2022-03-27 00:00:00 Telephone Laurel, Nephrology [facility] 1.2.840.114 350.1.13.10 4.2.7.2.686 [id number] [facility] 2022-03-26 14:30:00 2022-03-26 14:56:45 Outpatient R BROOKS BARKER OGECHUKWU [facility] [id number] [facility] 2022-03-26 14:30:00 2022-03-26 14:56:45 Office Visit Brooks Barker [facility] 1.2.840.114 350.1.13.10 4.2.7.2.686 [id number] [facility] 2022-03-26 14:30:00 2022-03-26 14:56:45 Outpatient R BROOKS BARKER OGECHUKWU [facility] [id number] [facility] 2022-03-20 00:00:00 2022-03-20 00:00:00 Transition of Care Page Seth SILVIA MARX 1.2.840.114 350.1.13.10 4.2.7.2.686 [id number] [facility] 2022-03-20 00:00:00 2022-03-20 00:00:00 Telephone Kim Jones [facility] 1.2.840.114 350.1.13.10 4.2.7.2.686 [id number] [facility] 2022-03-17 13:52:00 2022-03-19 10:30:00 Hospital Encounter Asad Armendariz Jelani [facility] 1.2.840.114 350.1.13.10 4.2.7.2.686 [id number] [facility] 2022-03-17 13:30:00 2022-03-17 14:00:48 Outpatient R BROOKS BARKER OGECHUKWU [facility] [id number] [facility] 2022-03-17 13:30:00 2022-03-17 14:00:48 Outpatient R BROOKS BARKER OGECHUKWU [facility] [id number] [facility] 2022-03-17 13:30:00 2022-03-17 14:00:48 Office [facility] 1.2.840.114 350.1.13.10 4.2.7.2.686 [id number] [facility] 2022-03-17 13:30:00 2022-03-17 14:00:48 Outpatient R MJ NUARIS BARKER, [place] [facility] JOANA [id number] [facility] 2022-03-17 13:30:00 2022-03-17 14:00:48 Outpatient R HOWARD BARKERDEISYBHANU BARKER, NUDonnieU [facility] [id number] [facility] 2022-03-17 13:30:00 2022-03-17 14:00:48 Outpatient R MJ NUARIS BARKER, BROOKS [facility] JOANA [id number] [facility] 2022-03-12 00:00:00 2022-03-12 00:00:00 Orders Only Doctor Unassigned, [place] [facility] 1.2.840.114 350.1.13.10 4.2.7.2.686 [id number] [facility] 2022-03-11 20:00:00 2022-03-11 22:30:00 Manager Intermediate Visit 1, [facility] Sleep Lab Bed Sunshine Klein [facility] 1.2.840.114 350.1.13.10 4.2.7.2.686 [id number] [facility] 2022-03-11 20:00:00 2022-03-11 20:00:00 Outpatient R SUNSHINE KLEIN STRAHIL [facility] [id number] [facility] 2022-03-11 20:00:00 2022-03-11 20:00:00 Outpatient R SUNSHINE KLEIN STRAHIL [facility] [id number] [facility] 2022-03-10 14:45:00 2022-03-10 15:00:00 Laboratory Only Only, Adc Test Rebecca Palmer [facility] 1.2.840.114 350.1.13.10 4.2.7.2.686 [id number] [facility] 2022-03-10 14:45:00 2022-03-10 14:45:00 Outpatient R REBECCA PALMER [facility] [id number] [facility] 2022-03-10 11:00:00 2022-03-10 11:00:00 Outpatient R [facility] [id number] [facility] 2022-03-10 00:00:00 2022-03-10 00:00:00 Transition of Page Garcia VEGA COLEMAN 1.2.840.114 350.1.13.10 4.2.7.2.686 [id number] [facility] 2022-03-05 12:15:00 2022-03-07 13:33:00 [facility] [id number] [facility] 2022-03-05 12:15:00 2022-03-07 13:33:00 Emergency Janina Wharton Jelani [facility] 1.2.840.114 350.1.13.10 4.2.7.2.686 [id number] [facility] 2022-03-05 12:15:00 2022-03-07 13:33:00 Out[facility] X [facility] [id number] [facility] 2022-03-05 14:00:00 2022-03-05 14:00:00 Outpatient R BROOKS BARKER OGECHUKWU [facility] [id number] [facility] 2022-03-05 12:15:00 2022-03-05 12:15:00 Emergency X JANINA WHARTON [facility] [id number] [facility] 2022-03-05 12:15:00 2022-03-05 12:15:00 Outpatient X BJ WEISS [facility] JOANA [id number] [facility] 2022-03-05 12:15:00 2022-03-05 12:15:00 Outpatient X BJ WEISS [facility] JOANA [id number] [facility] 2022-03-05 12:15:00 2022-03-05 12:15:00 Outpatient X BJ WEISS [facility] [id number] [facility] 2022-03-05 00:00:00 2022-03-05 00:00:00 Patient Outreach Shahnaz Ulloa [facility] 1.2.840.114 350.1.13.10 4.2.7.2.686 [id number] [facility] 2022-03-05 00:00:00 2022-03-05 00:00:00 Patient Outreach Shahnaz Ulloa [facility] 1.2.840.114 350.1.13.10 4.2.7.2.686 [id number] [facility] 2022-03-05 00:00:00 2022-03-05 00:00:00 Patient Outreach Shahnaz Ulloa [facility] 1.2.840.114 350.1.13.10 4.2.7.2.686 [id number] [facility] 2022-03-05 00:00:00 2022-03-05 00:00:00 Patient Outreach Shahnaz Ulloa [facility] 1.2.840.114 350.1.13.10 4.2.7.2.686 [id number] [facility] 2022-03-04 13:00:00 2022-03-04 13:57:47 Office Visit Kim Jones [facility] 1.2.840.114 350.1.13.10 4.2.7.2.686 [id number] [facility] 2022-03-04 13:00:00 2022-03-04 13:57:47 [facility] [id number] 2022-03-04 13:00:00 2022-03-04 13:57:47 Office Visit Kim Jones [facility] 1.2.840.114 350.1.13.10 4.2.7.2.686 [id number] [facility] 2022-03-04 13:00:00 2022-03-04 13:57:47 Outpatient R KIM JONES [facility] [id number] [facility] 2022-03-04 13:00:00 2022-03-04 13:57:47 Office Visit Kim Jones [facility] 1.2.840.114 350.1.13.10 4.2.7.2.686 [id number] [facility] 2022-03-04 13:00:00 2022-03-04 13:57:47 Outpatient R KIM JONES [facility] [id number] [facility] 2022-03-04 13:00:00 2022-03-04 13:00:00 Outpatient R SURENDRA JONESFORMERLY [facility] [id number] [facility] 2022-03-02 00:00:00 2022-03-02 00:00:00 Elizabet Argueta [facility] 1.2.840.114 350.1.13.10 4.2.7.2.686 [id number] [facility] 2022-02-28 00:00:00 2022-02-28 00:00:00 Orders Only Doctor Unassigned, [place] [facility] 1.2.840.114 350.1.13.10 4.2.7.2.686 [id number] [facility] 2022-02-27 14:47:00 2022-02-27 16:52:00 Emergency X MARY REYNAGA [facility] [id number] [facility] 2022-02-27 14:47:00 2022-02-27 16:52:00 Emergency Mary Reynaga [facility] 1..840.114 350.1.13.10 4.2.7.2.686 [id number] [facility] 2022-02-27 14:47:00 2022-02-27 16:52:00 Emergency X MARY REYNAGA [facility] [id number] [facility] 2022-02-27 14:47:00 2022-02-27 16:52:00 Emergency X MARY REYNAGA [facility] [id number] [facility] 2022-02-27 14:47:00 2022-02-27 16:52:00 Emergency X MARY REYNAGA [facility] [id number] [facility] 2022-02-27 00:00:00 2022-02-27 00:00:00 Telephone David Ladd [facility] 1.2.840.114 350.1.13.10 4.2.7.2.686 [id number] [facility] 2022-02-27 00:00:00 2022-02-27 00:00:00 Telephone David Ladd [facility] 1.2.840.114 350.1.13.10 4.2.7.2.686 [id number] [facility] 2022-02-27 00:00:00 2022-02-27 00:00:00 Telephone Juan Mazariegos [facility] 1..840.114 350.1.13.10 4.2.7.2.686 [id number] [facility] 2022-02-26 09:30:00 2022-02-26 10:04:13 Outpatient R DAVID LADD [facility] [id number] [facility] 2022-02-26 09:30:00 2022-02-26 10:04:13 Office Visit David Ladd [facility] 1..840.114 350.1.13.10 4.2.7.2.686 [id number] [facility] 2022-02-26 09:30:00 2022-02-26 10:04:13 Outpatient R DAVID LADD [facility] [id number] [facility] 2022-02-26 09:30:00 2022-02-26 10:04:13 Outpatient R WILBERTO, SENDIL [facility] [id number] [facility] 2022-02-26 08:30:00 2022-02-26 08:30:00 Outpatient R WILBERTO SENDDANE [facility] [id number] [facility] 2022-02-26 08:30:00 2022-02-26 08:30:00 Outpatient R WILBERTO SENDIL [facility] [id number] [facility] 2022-02-26 00:00:00 2022-02-26 00:00:00 Telephone Juan Mazariegos [facility] 1..840.114 350.1.13.10 4.2.7.2.686 [id number] [facility] 2022-02-25 00:00:00 2022-02-25 00:00:00 Outpatient R [facility] [id number] [facility] 2022-02-25 00:00:00 2022-02-25 00:00:00 Outpatient R [facility] [id number] [facility] 2022-02-25 00:00:00 2022-02-25 00:00:00 Orders Only Doctor Unassigned, [place] [facility] 1.2.840.114 350.1.13.10 4.2.7.2.686 [id number] [facility] 2022-02-24 17:06:00 2022-02-24 19:41:00 Emergency Pia Watts [facility] 1..840.114 350.1.13.10 4.2.7.2.686 [id number] [facility] 2022-02-24 16:30:00 2022-02-24 16:49:48 Outpatient R BROOKS BARKER OGECHUKWU [facility] [id number] [facility] 2022-02-24 16:30:00 2022-02-24 16:49:48 Outpatient R BROOKS BARKER OGECHUKWU [facility] [id number] [facility] 2022-02-24 16:30:00 2022-02-24 16:49:48 Office Visit [facility] 1..840.114 350.1.13.10 4.2.7.2.686 [id number] [facility] 2022-02-24 16:30:00 2022-02-24 16:49:48 Outpatient R BROOKS BARKER OGECHUKWU [facility] [id number] [facility] 2022-02-24 16:30:00 2022-02-24 16:49:48 Outpatient R BROOKS BARKER OGECHUKWU [facility] [id number] [facility] 2022-02-24 16:30:00 2022-02-24 16:49:48 Outpatient R MJ, BROOKS MEJIA [facility] [id number] [facility] 2022-02-20 00:00:00 2022-02-20 00:00:00 Telephone Del Francesca [facility] 1.0.114 350.1.13.10 4.2.7.2.686 [id number] [facility] 2022-02-20 00:00:00 2022-02-20 00:00:00 Telephone Nicolás Ma [facility] 1.20.114 350.1.13.10 4.2.7.2.686 [id number] [facility] 2022-02-20 00:00:00 2022-02-20 00:00:00 Telephone Nicolás Ma [facility] 1.0.114 350.1.13.10 4.2.7.2.686 [id number] [facility] 2022-02-19 00:00:00 2022-02-19 00:00:00 Transition of Care Page Seth 1..114 350.1.13.10 4.2.7.2.686 [id number] [facility] 2022-02-19 00:00:00 2022-02-19 00:00:00 Telephone David Ladd [facility] 1..114 350.1.13.10 4.2.7.2.686 [id number] [facility] 2022-02-19 00:00:00 2022-02-19 00:00:00 Telephone Kim Jones [facility] 1.84.114 350.1.13.10 4.2.7.2.686 [id number] [facility] 2022-02-19 00:00:00 2022-02-19 00:00:00 Orders Only Doctor Unassigned, [place] [facility] 1..114 350.1.13.10 4.2.7.2.686 [id number] [facility] 2022-02-19 00:00:00 2022-02-19 00:00:00 Telephone David Ladd [facility] 1..114 350.1.13.10 4.2.7.2.686 [id number] [facility] 2022-02-14 20:36:00 2022-02-18 13:15:00 [id number] 2022-02-14 20:36:00 2022-02-18 13:15:00 [facility] 1.114 350.1.13.10 4.2.7.2.686 [id number] [facility] 2022-02-14 20:36:00 2022-02-18 13:15:00 [facility] [id number] [facility] 2022-02-14 20:36:00 2022-02-18 13:15:00 Inpatient U YARI [facility] [id number] [facility] 2022-02-18 00:00:00 2022-02-18 00:00:00 Telephone Jose Manueljonatan [facility] 1..114 350.1.13.10 4.2.7.2.686 [id number] [facility] 2022-02-17 11:00:00 2022-02-17 11:00:00 Outpatient SURENDRA HUTH [facility] [id number] [facility] 2022-02-17 00:00:00 2022-02-17 00:00:00 Telephone Hallie Greenberg [facility] 1.2.840.114 350.1.13.10 4.2.7.2.686 [id number] [facility] 2022-02-11 14:00:00 2022-02-11 14:00:00 Outpatient SURENDRA HUTH [facility] [id number] [facility] 2022-02-11 14:00:00 2022-02-11 14:00:00 Outpatient SURENDRA HUTH [facility] [id number] [facility] 2022-02-11 14:00:00 2022-02-11 14:00:00 Outpatient R SURENDRA OJNESTH [facility] [id number] [facility] 2022-02-11 14:00:00 2022-02-11 14:00:00 Outpatient SURENRDA HUTH [facility] [id number] [facility] 2022-02-11 14:00:00 2022-02-11 14:00:00 Outpatient R SURENDRA JONESTH [facility] [id number] [facility] 2022-02-11 14:00:00 2022-02-11 14:00:00 Outpatient SURENDRA HUTH [facility] [id number] [facility] 2022-02-11 14:00:00 2022-02-11 14:00:00 Outpatient R SURENDRA JONESTH [facility] [id number] [facility] 2022-02-11 14:00:00 2022-02-11 14:00:00 Outpatient KIM HU [facility] [id number] [facility] 2022-02-11 14:00:00 2022-02-11 14:00:00 Outpatient KIM HU [facility] [id number] [facility] 2022-02-11 14:00:00 2022-02-11 14:00:00 Outpatient R KIM JONES [facility] [id number] [facility] 2022-02-11 14:00:00 2022-02-11 14:00:00 Outpatient R KIM JONES [facility] [id number] [facility] 2022-02-11 14:00:00 2022-02-11 14:00:00 Outpatient R KIM JONES [facility] [id number] [facility] 2022-02-11 14:00:00 2022-02-11 14:00:00 Outpatient R KIM JONES [facility] [id number] [facility] 2022-02-11 14:00:00 2022-02-11 14:00:00 Outpatient R KIM JONES [facility] [id number] [facility] 2022-02-11 14:00:00 2022-02-11 14:00:00 Outpatient R KIM JONES [facility] [id number] [facility] 2022-02-10 00:00:00 2022-02-10 00:00:00 David Rodriguez [facility] [id number] 350.1.13.10 [id number] [id number] [facility] 2022-02-08 11:46:00 2022-02-08 13:44:00 Emergency MARY MARKHAM [facility] [id number] [facility] 2022-02-08 11:46:00 2022-02-08 13:44:00 Emergency Mary Reynaga [facility] [id number] 350.1.13.10 4.2.7.2.686 [id number] [facility] 2022-02-08 11:46:00 2022-02-08 13:44:00 Emergency X MARY REYNAGA [facility] [id number] [facility] 2022-02-06 00:00:00 2022-02-06 00:00:00 Orders Only Doctor Unassigned, [place] [facility] [id number] 350.1.13.10 4.2.7.2.686 [id number] [facility] 2022-02-05 09:30:00 2022-02-05 09:56:26 Outpatient R DAVID LADD [facility] [id number] [facility] 2022-02-05 09:30:00 2022-02-05 09:56:26 Nurse Visit Visit, [facility] Nurse David Ladd [facility] 1..114 350.1.13.10 4.2.7.2.686 [id number] [facility] 2022-02-05 09:30:00 2022-02-05 09:56:26 Outpatient DAVID MATUTE [facility] [id number] [facility] 2022-02-05 00:00:00 2022-02-05 00:00:00 Telephone [facility] 1..114 350.1.13.10 4.2.7.2.686 [id number] [facility] 2022-02-05 00:00:00 2022-02-05 00:00:00 Transition of Care Page Seth 1.20.114 350.1.13.10 4.2.7.2.686 [id number] [facility] 2022-02-04 15:00:00 2022-02-04 15:00:00 Outpatient R [facility] [id number] [facility] 2022-02-04 15:00:00 2022-02-04 15:00:00 Outpatient R [facility] [id number] [facility] 2022-02-02 12:47:00 2022-02-03 18:00:00 Outpatient Brynn CRISS LEYVA [facility] [id number] [facility] 2022-02-02 12:47:00 2022-02-03 18:00:00 Emergency Michelle Miranda David [facility] 1.2.840.114 350.1.13.10 4.2.7.2.686 [id number] [facility] 2022-02-02 12:47:00 2022-02-03 18:00:00 Outpatient Brynn CRISS LEYVA [facility] [id number] [facility] 2022-02-02 00:00:00 2022-02-02 00:00:00 Nurse Triage Radha Gonsalves [facility] 1.2.840.114 350.1.13.10 4.2.7.2.686 [id number] [facility] 2022-01-28 08:30:00 2022-01-28 08:30:00 Outpatient R WILBERTO SENDIL [facility] [id number] [facility] 2022-01-28 08:30:00 2022-01-28 08:30:00 Outpatient R WILBERTO SENDDANE [facility] [id number] [facility] 2022-01-28 08:30:00 2022-01-28 08:30:00 Outpatient R WILBERTO SENDDANE [facility] [id number] [facility] 2022-01-28 08:30:00 2022-01-28 08:30:00 Outpatient R DAVID LADD [facility] [id number] [facility] 2022-01-28 08:30:00 2022-01-28 08:30:00 Outpatient R LADD, DAVID [facility] [id number] [facility] 2022-01-28 08:30:00 2022-01-28 08:30:00 Outpatient R DAVID LADD [facility] [id number] [facility] 2022-01-28 08:30:00 2022-01-28 08:30:00 [facility] 1.840.114 350.1.13.10 4.2.7.2.686 [id number] [facility] 2022-01-28 08:30:00 2022-01-28 08:25:30 Outpatient R WILBERTO DAVID [facility] [id number] [facility] 2022-01-24 00:00:00 2022-01-24 00:00:00 Transition of Care Erica Sousa [facility] 1.840.114 350.1.13.10 4.2.7.2.686 [id number] [facility] 2022-01-24 00:00:00 2022-01-24 00:00:00 Orders Only Doctor Unassigned, [place] [facility] 1.840.114 350.1.13.10 4.2.7.2.686 [id number] [facility] 2022-01-21 09:05:00 2022-01-23 19:12:00 Outpatient X BJ WEISS [facility] [id number] [facility] 2022-01-21 09:05:00 2022-01-23 19:12:00 Emergency Pia Watts Jelani [facility] 1.840.114 350.1.13.10 4.2.7.2.686 [id number] [facility] 2022-01-21 09:05:00 2022-01-23 19:12:00 Outpatient X BJ WEISS [facility] [id number] [facility] 2022-01-21 09:05:00 2022-01-21 09:05:00 Outpatient X BJ WEISS [facility] [id number] [facility] 2022-03-19 14:51:36 2022-01-17 12:51:00 Emergency X [facility] [id number] [facility] 2022-01-23 16:14:13 2022-01-17 12:51:00 Emergency X [facility] [id number] [facility] 2022-01-17 12:50:40 2022-01-17 12:51:00 Emergency X [facility] [id number] [facility] 2022-01-16 00:00:00 2022-01-16 00:00:00 Orders Only Doctor Unassigned, [place] [facility] 1.2.840.114 350.1.13.10 4.2.7.2.686 [id number] [facility] 2022-01-15 09:40:00 2022-01-15 09:40:00 Outpatient R ATANASOV, STRAHIL ATANASOV, STRAHIL [facility] [id number] [facility] 2022-01-15 09:40:00 2022-01-15 09:40:00 Outpatient R ATANASOV, STRAHIL [facility] [id number] [facility] 2022-01-15 09:40:00 2022-01-15 09:40:00 Outpatient R ATANASOV, STRAHIL ATANASOV, STRAHIL [facility] [id number] [facility] 2022-01-15 09:40:00 2022-01-15 09:40:00 Outpatient R ATANASOV, STRAHIL ATANASOV, STRAHIL [facility] [id number] [facility] 2022-01-14 00:00:00 2022-01-14 00:00:00 Telephone [facility] 1.2.840.114 350.1.13.10 4.2.7.2.686 [id number] [facility] 2022-01-09 15:40:00 2022-01-09 16:19:06 [facility] [id number] 2022-01-09 15:40:00 2022-01-09 16:19:06 [facility] [id number] [facility] 2022-01-09 15:40:00 2022-01-09 16:19:06 Office Visit Kim Jones Orlin [facility] 1.2.840.114 350.1.13.10 4.2.7.2.686 [id number] [facility] 2022-01-09 15:40:00 2022-01-09 15:40:00 Outpatient R SHAR JONESBETH [facility] [id number] [facility] 2022-01-09 15:40:00 2022-01-09 15:40:00 Outpatient SHAR HUBETH [facility] [id number] [facility] 2022-01-06 00:00:00 2022-01-06 00:00:00 Refill Kim Jones [facility] 1.2.840.114 350.1.13.10 4.2.7.2.686 [id number] [facility] 2022-01-04 00:00:00 2022-01-04 00:00:00 Refill David Ladd [facility] 1.2.840.114 350.1.13.10 4.2.7.2.686 [id number] [facility] 2022-01-02 13:00:00 2022-01-02 14:23:02 Outpatient R SHAR JONESBETH [facility] [id number] [facility] 2022-01-02 13:00:00 2022-01-02 14:23:02 [facility] [id number] [facility] 2022-01-02 13:00:00 2022-01-02 14:23:02 Office Visit Kim Jones [facility] 1.2.840.114 350.1.13.10 4.2.7.2.686 [id number] [facility] 2022-01-02 13:00:00 2022-01-02 14:23:02 [facility] [id number] [facility] 2022-01-02 13:00:00 2022-01-02 14:23:02 Outpatient R KIM JONES [facility] [id number] [facility] 2022-01-02 13:00:00 2022-01-02 14:23:02 [facility] [id number] [facility] 2022-01-02 13:00:00 2022-01-02 14:23:02 [facility] [id number] [facility] 2022-01-02 00:00:00 2022-01-02 00:00:00 Transition of Page Garcia 1.2.840.114 350.1.13.10 4.2.7.2.686 [id number] [facility] 2021-12-31 07:01:00 2022-01-01 19:25:00 Outpatient X BJ WEISS [facility] JOANA [id number] [facility] 2021-12-31 07:01:00 2022-01-01 19:25:00 Emergency Michelle Miranda Jelani [facility] 1.2.840.114 350.1.13.10 4.2.7.2.686 [id number] [facility] 2021-12-31 07:01:00 2022-01-01 19:25:00 Outpatient X BJ WEISS [facility] [id number] [facility] 2021-12-31 07:01:00 2022-01-01 19:25:00 Outpatient BJ PLASCENCIA [facility] [id number] [facility] 2021-12-27 16:00:00 2021-12-27 16:38:33 Outpatient R JUAN MAZARIEGOS [facility] [id number] [facility] 2021-12-27 16:00:00 2021-12-27 16:38:33 Office Visit [facility] 1.2.840.114 350.1.13.10 4.2.7.2.686 [id number] [facility] 2021-12-27 16:00:00 2021-12-27 16:38:33 Outpatient R JUAN MAZARIEGOS [facility] [id number] [facility] 2021-12-27 16:00:00 2021-12-27 16:38:33 Outpatient JUAN HARRISON [facility] [id number] [facility] 2021-12-27 16:00:00 2021-12-27 16:38:33 Outpatient R JUAN MAZARIEGOS [facility] [id number] [facility] 2021-12-27 16:00:00 2021-12-27 16:38:33 Outpatient R JUAN MAZARIEGOS [facility] [id number] [facility] 2021-12-25 13:22:11 2021-12-25 23:59:00 Hospital Encounter Maria E Fischer [facility] 1.2.840.114 350.1.13.10 4.2.7.2.686 [id number] [facility] 2021-12-25 13:30:00 2021-12-25 13:45:00 Manager Intermediate Visit Pob, Adc Lab Main Maria E Fischer [facility] 1..840.114 350.1.13.10 4.2.7.2.686 [id number] [facility] 2021-12-25 13:30:00 2021-12-25 13:30:00 Outpatient R MARIA E FISCHER [facility] [id number] [facility] 2021-12-25 13:30:00 2021-12-25 13:30:00 Outpatient R MARIA E FISCHER [facility] [id number] [facility] 2021-12-25 13:30:00 2021-12-25 13:30:00 Outpatient R MARIA E FISCHER [facility] [id number] [facility] 2021-12-25 11:00:00 2021-12-25 12:25:01 Outpatient R MARIA E FISCHER [facility] [id number] [facility] 2021-12-25 11:00:00 2021-12-25 12:25:01 Office Visit Maria E Fischer [facility] 1.2.840.114 350.1.13.10 4.2.7.2.686 [id number] [facility] 2021-12-25 11:00:00 2021-12-25 12:25:01 Outpatient R EDROBINSON MARIA E [facility] [id number] [facility] 2021-12-25 00:00:00 2021-12-25 00:00:00 Orders Only Doctor Unassigned, [place] [facility] 1.84.114 350.1.13.10 4.2.7.2.686 [id number] [facility] 2021-12-24 16:57:00 2021-12-24 17:41:00 Emergency X NIKKI, K [facility] [id number] [facility] 2021-12-24 16:57:00 2021-12-24 17:41:00 Emergency Nikki, K Janny [facility] 1.84.114 350.1.13.10 4.2.7.2.686 [id number] [facility] 2021-12-24 16:57:00 2021-12-24 17:41:00 Emergency X NIKKI, Jairo [facility] [id number] [facility] 2021-12-24 16:57:00 2021-12-24 17:41:00 Emergency X NIKKI, K [facility] [id number] [facility] 2021-12-24 16:57:00 2021-12-24 17:41:00 Emergency X NIKKI, Jairo [facility] [id number] [facility] 2021-12-24 16:57:00 2021-12-24 17:41:00 Emergency X NIKKI, K [facility] [id number] [facility] 2021-12-24 16:57:00 2021-12-24 17:41:00 Emergency X NIKKI, K [facility] [id number] [facility] 2021-12-21 19:30:00 2021-12-21 22:00:00 Manager Intermediate Visit 1, [facility] Sleep Lab Bed Sunshine Klein [facility] 1..84.114 350.1.13.10 4.2.7.2.686 [id number] [facility] 2021-12-21 19:30:00 2021-12-21 19:30:00 Outpatient R ATANASOV, STRAHIL ATANASOV, STRAHIL [facility] [id number] [facility] 2021-12-21 19:30:00 2021-12-21 19:30:00 Outpatient R ATANASOV, STRAHIL ATANASOV, STRAHIL [facility] [id number] [facility] 2021-12-21 19:30:00 2021-12-21 19:30:00 Outpatient R ATANASOV, STRAHIL ATANASOV, STRAHIL [facility] [id number] [facility] 2021-12-21 19:30:00 2021-12-21 19:30:00 Outpatient R ATANASOV, STRAHIL [facility] [id number] [facility] 2021-12-21 19:30:00 2021-12-21 19:30:00 Outpatient R ATANASOV, STRAHIL ATANASOV, STRAHIL [facility] [id number] [facility] 2021-12-21 00:00:00 2021-12-21 00:00:00 Orders Only Doctor Unassigned, [place] [facility] .840.114 350.1.13.10 4.2.7.2.686 [id number] [facility] 2021-12-19 08:00:00 2021-12-19 08:15:00 Laboratory Only Only, Adc Test Rebecca Palmer [facility] 1.840.114 350.1.13.10 4.2.7.2.686 [id number] [facility] 2021-12-19 08:00:00 2021-12-19 08:00:00 Outpatient REBECCA SAUCEDO [facility] [id number] [facility] 2021-12-19 08:00:00 2021-12-19 08:00:00 Outpatient Paul JESSIEHALEY REBECCA [facility] [id number] [facility] 2021-12-19 08:00:00 2021-12-19 08:00:00 Outpatient Paul BUSTAMANTEPRAVEENHALEYREBECCA [facility] [id number] [facility] 2021-12-19 00:00:00 2021-12-19 00:00:00 Case Management Kim Jones [facility] 1.2840.114 350.1.13.10 4.2.7.2.686 [id number] [facility] 2021-12-19 00:00:00 2021-12-19 00:00:00 Patient Outreach Shahnaz Ulloa [facility] 1.2.840.114 350.1.13.10 4.2.7.2.686 [id number] [facility] 2021-12-19 00:00:00 2021-12-19 00:00:00 Orders Only Doctor Unassigned, [place] [facility] 1.2.840.114 350.1.13.10 4.2.7.2.686 [id number] [facility] 2021-12-16 00:00:00 2021-12-16 00:00:00 Transition of Care Page Seth 1.2.840.114 350.1.13.10 4.2.7.2.686 [id number] [facility] 2021-12-16 00:00:00 2021-12-16 00:00:00 Telephone Kim Jones [facility] 1.2.840.114 350.1.13.10 4.2.7.2.686 [id number] [facility] 2021-12-12 09:12:00 2021-12-14 15:13:00 Hospital Encounter Mary Reynaga, Bj Mosquera [facility] 1..840.114 350.1.13.10 4.2.7.2.686 [id number] [facility] 2021-12-11 11:00:00 2021-12-11 11:47:39 Outpatient Paul S[facility]ERSON [facility] [id number] [facility] 2021-12-11 11:00:00 2021-12-11 11:47:39 Office Visit David Ladd, [facility] 1..840.114 350.1.13.10 4.2.7.2.686 [id number] [facility] 2021-12-11 11:00:00 2021-12-11 11:47:39 Outpatient Paul S[facility]ERSON [facility] [id number] [facility] 2021-12-11 11:00:00 2021-12-11 11:00:00 Outpatient Paul S[facility]ERSON [facility] [id number] [facility] 2021-12-10 10:08:00 2021-12-10 14:35:00 Emergency X PIA WATTS [facility] [id number] [facility] 2021-12-10 10:08:00 2021-12-10 14:35:00 Emergency Pia Watts [facility] 1.840.114 350.1.13.10 4.2.7.2.686 [id number] [facility] 2021-12-10 10:08:00 2021-12-10 14:35:00 Emergency X PIA WATTS [facility] [id number] [facility] 2021-12-10 10:08:00 2021-12-10 14:35:00 Emergency X PIA WATTS [facility] [id number] [facility] 2021-12-10 10:08:00 2021-12-10 14:35:00 Emergency X PIA WATTS [facility] [id number] [facility] 2021-12-10 10:08:00 2021-12-10 14:35:00 Emergency X PIA WATTS [facility] [id number] [facility] 2021-12-10 10:08:00 2021-12-10 14:35:00 Emergency X PIA WATTS [facility] [id number] [facility] 2021-12-10 10:08:00 2021-12-10 10:08:00 Emergency X PIA WATTS [facility] [id number] [facility] 2021-12-10 10:08:00 2021-12-10 10:08:00 Emergency X PIA WATTS [facility] [id number] [facility] 2021-12-10 00:00:00 2021-12-10 00:00:00 Telephone Kin, Cornelia [facility] 1.2.840.114 350.1.13.10 4.2.7.2.686 [id number] [facility] 2021 15:40:00 2021 17:19:00 Outpatient R KIM JONES [facility] [id number] [facility] 2021 15:40:00 2021 17:19:00 Office Visit Kim Jones [facility] 1.2.840.114 350.1.13.10 4.2.7.2.686 [id number] [facility] 2021 15:40:00 2021 17:19:00 Outpatient R KIM JONES [facility] [id number] [facility] 2021 15:40:00 2021 17:19:00 Outpatient KIM HU [facility] [id number] [facility] 2021 15:40:00 2021 17:19:00 Outpatient KIM HU [facility] [id number] [facility] 2021 00:00:00 2021 00:00:00 Orders Only Doctor Unassigned, [place] [facility] 1.840.114 350.1.13.10 4.2.7.2.686 [id number] [facility] 2021-12-03 00:00:00 2021-12-03 00:00:00 Telephone [facility] 1.84.114 350.1.13.10 4.2.7.2.686 [id number] [facility] 2021-12-02 00:00:00 2021-12-02 00:00:00 Transition of Care Page Seth 1.284.114 350.1.13.10 4.2.7.2.686 [id number] [facility] 2021-11-29 15:25:00 2021-11-30 12:37:00 Outpatient CRISS ALATORRE [facility] [id number] [facility] 2021-11-29 15:25:00 2021-11-30 12:37:00 Emergency Michelle Miranda David [facility] 1..114 350.1.13.10 4.2.7.2.686 [id number] [facility] 2021-11-29 15:25:00 2021-11-30 12:37:00 Outpatient CRISS ALATORRE [facility] [id number] [facility] 2021-11-29 15:25:00 2021-11-30 12:37:00 Outpatient X CRISS LEYVA [facility] [id number] [facility] 2021-11-22 00:00:00 2021-11-22 00:00:00 Transition of Care Yvonne [place] 1..840.114 350.1.13.10 4.2.7.2.686 [id number] [facility] 2021-11-19 16:24:00 2021-11-21 12:26:00 Outpatient X BJ WEISS [facility] [id number] [facility] 2021-11-19 16:24:00 2021-11-21 12:26:00 Emergency Henrique Remy Jelani [facility] 1..840.114 350.1.13.10 4.2.7.2.686 [id number] [facility] 2021-11-19 16:24:00 2021-11-21 12:26:00 Outpatient X BJ WEISS [facility] [id number] [facility] 2021-11-19 16:24:00 2021-11-21 12:26:00 Outpatient X BJ WEISS [facility] [id number] [facility] 2021-11-19 16:24:00 2021-11-19 16:24:00 Outpatient X BJ WEISS [facility] [id number] [facility] 2021-11-11 19:30:00 2021-11-11 19:30:00 Outpatient R SUNSHINE KLEIN STRAHIL [facility] [id number] [facility] 2021-11-08 12:00:00 2021-11-08 12:00:00 Outpatient R [facility] [id number] [facility] 2021-11-08 12:00:00 2021-11-08 12:00:00 Outpatient R [facility] [id number] [facility] 2021-11-05 13:00:00 2021-11-05 13:54:58 Outpatient R JONESKIM ESTRADA [facility] [id number] [facility] 2021-11-05 13:00:00 2021-11-05 13:54:58 Outpatient R KIM JONES [facility] [id number] [facility] 2021-11-05 13:00:00 2021-11-05 13:54:58 Office Visit Kim [facility] ESS[facility] OLVIN RODRIGUEZ .2.840.114 350.1.13.10 4.2.7.2.686 [id number] [facility] 2021-11-05 13:00:00 2021-11-05 13:54:58 Outpatient R KIM JONES [facility] [id number] [facility] 2021-11-05 13:00:00 2021-11-05 13:54:58 Outpatient R SURENDRA [facility]ESFORMERLY [facility] [id number] [facility] 2021-11-05 00:00:00 2021-11-05 00:00:00 Transition of Care Page Seth .2.840.114 350.1.13.10 4.2.7.2.686 [id number] [facility] 2021-11-04 13:45:00 2021-11-04 13:45:00 Outpatient ROBERTO WANG [facility] [id number] [facility] 2021-11-04 13:45:00 2021-11-04 13:45:00 Outpatient ROBERTO WANG [facility] [id number] [facility] 2021-11-01 17:38:00 2021-11-04 12:55:00 Inpatient CRISS ALATORRE [facility] [id number] [facility] 2021-11-01 17:38:00 2021-11-04 12:55:00 Hospital Encounter Pia Watts David [facility] 1.2.840.114 350.1.13.10 4.2.7.2.686 [id number] [facility] 2021-11-01 17:38:00 2021-11-04 12:55:00 Inpatient X CRISS LEYVA [facility] [id number] [facility] 2021-11-01 17:38:00 2021-11-04 12:55:00 Inpatient X CRISS LEYVA [facility] [id number] [facility] 2021-11-01 17:38:00 2021-11-04 12:55:00 Inpatient X CRISS LEYVA [facility] [id number] [facility] 2021-11-01 17:38:00 2021-11-04 12:55:00 Inpatient X CRISS LEYVA [facility] [id number] [facility] 2021-11-01 17:38:00 2021-11-04 12:55:00 Inpatient X CRISS LEYVA [facility] [id number] [facility] 2021-10-29 11:00:00 2021-10-29 15:29:17 Outpatient ROBERTO WANG [facility] [id number] [facility] 2021-10-29 11:00:00 2021-10-29 15:29:17 Outpatient ROBERTO WANG [facility] [id number] [facility] 2021-10-29 11:00:00 2021-10-29 15:29:17 Outpatient ROBERTO WANG [facility] [id number] [facility] 2021-10-29 11:00:00 2021-10-29 15:29:17 Outpatient ROBERTO WANG [facility] [id number] [facility] 2021-10-29 11:00:00 2021-10-29 15:29:17 Outpatient ROBERTO WANG [facility] [id number] [facility] 2021-10-29 11:00:00 2021-10-29 15:29:17 Outpatient Paul STOKES ROBERTO [facility] [id number] [facility] 2021-10-29 11:00:00 2021-10-29 11:00:00 Outpatient Paul STOKES ROBERTO [facility] [id number] [facility] 2021-10-29 11:00:00 2021-10-29 11:00:00 Outpatient ROBERTO WANG [facility] [id number] [facility] 2021-10-28 00:00:00 2021-10-28 00:00:00 Transition of Care Page Seth 1..[id number] [facility] 2021-10-24 13:43:00 2021-10-26 13:02:00 Inpatient X BJ WEISS [facility] [id number] [facility] 2021-10-24 13:43:00 2021-10-26 13:02:00 Hospital Encounter Michelle Miranda Jelani [facility] ..[id number] [facility] 2021-10-24 13:43:00 2021-10-26 13:02:00 Inpatient X BJ WEISS [facility] [id number] [facility] 2021-10-24 13:43:00 2021-10-26 13:02:00 Inpatient X BJ WEISS [facility] [id number] [facility] 2021-10-24 13:43:00 2021-10-26 13:02:00 [facility] [facility] [id number] [facility] 2021-10-24 13:43:00 2021-10-26 13:02:00 Inpatient X BJ WEISS [facility] [id number] [facility] 2021-10-24 13:43:00 2021-10-26 13:02:00 Inpatient X BJ WEISS [facility] [id number] [facility] 2021-10-24 13:43:00 2021-10-26 13:02:00 [facility] [id number] [facility] 2021-10-24 13:43:00 2021-10-26 13:02:00 Inpatient X BJ [facility] [id number] [facility] 2021-10-24 14:00:00 2021-10-24 14:00:00 Outpatient R DAVID LADD [facility] [id number] [facility] 2021-10-24 00:00:00 2021-10-24 00:00:00 Telephone Kim Jones [facility] 1..840.114 350.1.13.10 4.2.7.2.686 [id number] [facility] 2021-10-22 14:30:00 2021-10-22 17:20:56 Ancillary Visit Romel Burns Craig L [facility] 1.2.840.114 350.1.13.10 4.2.7.2.686 [id number] [facility] 2021-10-22 14:30:00 2021-10-22 17:20:56 Outpatient R ROBERTO STOKES [facility] [id number] [facility] 2021-10-21 00:00:00 2021-10-21 00:00:00 Transition of Care Page Seth 1.2.840.114 350.1.13.10 4.2.7.2.686 [id number] [facility] 2021-10-18 15:00:00 2021-10-18 15:48:32 Outpatient R JONES, KIM [facility] [id number] [facility] 2021-10-18 15:00:00 2021-10-18 15:48:32 Outpatient R JONESSURENDRA ESTRADATH [facility] [id number] [facility] 2021-10-18 15:00:00 2021-10-18 15:48:32 Office Visit Kim Jones [facility] 1.2.840.114 350.1.13.10 4.2.7.2.686 [id number] [facility] 2021-10-18 15:00:00 2021-10-18 15:48:32 Outpatient R SURENDRA JONESTH [facility] [id number] [facility] 2021-10-18 15:00:00 2021-10-18 15:48:32 Outpatient R JONES, KIM [facility] [id number] [facility] 2021-10-18 15:00:00 2021-10-18 15:48:32 Outpatient R ROBERT KIM [facility] [id number] [facility] 2021-10-18 15:00:00 2021-10-18 15:48:32 Outpatient R KIM JONES [facility] [id number] [facility] 2021-10-18 15:00:00 2021-10-18 15:48:32 Outpatient R ROBERT KIM [facility] [id number] [facility] 2021-10-18 15:00:00 2021-10-18 15:48:32 Outpatient R ROBERT KIM [facility] [id number] [facility] 2021-10-18 15:00:00 2021-10-18 15:48:32 Outpatient R KIM JONES [facility] [id number] [facility] 2021-10-18 15:00:00 2021-10-18 15:00:00 Outpatient R KIM JONES [facility] [id number] [facility] 2021-10-18 15:00:00 2021-10-18 15:00:00 [facility] [id number] [facility] 2021-10-18 15:00:00 2021-10-18 15:00:00 [facility] [id number] [facility] 2021-10-18 15:00:00 2021-10-18 15:00:00 Outpatient R JONESKIM [facility] [id number] [facility] 2021-10-17 14:34:00 2021-10-18 13:05:00 Hospital Encounter Debby Brown Jelani [facility] .2.840.114 350.1.13.10 4.2.7.2.686 [id number] [facility] 2021-10-16 11:00:00 2021-10-16 11:57:33 Outpatient R ATADARIUSZ, STRAHIL ATANASOV, STRAHIL [facility] [id number] [facility] 2021-10-16 11:00:00 2021-10-16 11:57:33 Outpatient R ATANASOV, STRAHIL ATANASOV, STRAHIL [facility] [id number] [facility] 2021-10-16 11:00:00 2021-10-16 11:57:33 Outpatient R ATANASOV, STRAHIL ATANASOV, STRAHIL [facility] [id number] [facility] 2021-10-16 11:00:00 2021-10-16 11:20:00 Office Visit Paola Kleinl Edgar [facility] ..840.114 350.1.13.10 4.2.7.2.686 [id number] [facility] 2021-10-16 11:00:00 2021-10-16 11:00:00 Outpatient SUNSHINE GALLAGHER STRAHIL [facility] [id number] [facility] 2021-10-14 00:00:00 2021-10-14 00:00:00 Patient Outreach Ana Austin Donnie MARX 1.2840.114 350.1.13.10 4.2.7.2.686 [id number] [facility] 2021-10-10 00:00:00 2021-10-10 00:00:00 Patient Outreach AnaAustin Donnie MARX 1.2840.114 350.1.13.10 4.2.7.2.686 [id number] [facility] 2021-10-09 00:00:00 2021-10-09 00:00:00 Patient Outreach Artemio Shahnaz L [facility] 1.2840.114 350.1.13.10 4.2.7.2.686 [id number] [facility] 2021-10-09 00:00:00 2021-10-09 00:00:00 Transition of Care Page Seth 1.2840.114 350.1.13.10 4.2.7.2.686 [id number] [facility] 2021-10-09 00:00:00 2021-10-09 00:00:00 Orders Only Doctor Unassigned, [place] [facility] 1.2840.114 350.1.13.10 4.2.7.2.686 [id number] [facility] 2021-10-06 23:39:00 2021-10-08 17:40:00 Hospital Encounter Mary Reynaga Adnan Abdullah, Yaman [facility] 1.2.840.114 350.1.13.10 4.2.7.2.686 [id number] [facility] 2021-10-06 23:39:00 2021-10-08 17:40:00 Inpatient X MICHAELSHANELOH [facility] [id number] [facility] 2021-10-06 23:39:00 2021-10-08 17:40:00 Inpatient X MICHAELSHANELOH [facility] [id number] [facility] 2021-10-06 23:39:00 2021-10-08 17:40:00 Inpatient X OH ESPINOZA [facility] [id number] [facility] 2021-10-06 23:39:00 2021-10-08 17:40:00 Inpatient X OH ESPINOZA [facility] [id number] [facility] 2021-10-06 23:39:00 2021-10-08 17:40:00 Inpatient X MICHAELSHANELOH [facility] [id number] [facility] 2021-10-08 11:30:00 2021-10-08 11:30:00 Outpatient R ALICIA TELLEZ ELENITA [facility] [id number] [facility] 2021-10-08 11:30:00 2021-10-08 11:30:00 Outpatient ALICIA SMITH ELENITA [facility] [id number] [facility] 2021-10-08 11:30:00 2021-10-08 11:30:00 Outpatient R ALICIA TELLEZ ELENITA [facility] [id number] [facility] 2021-10-08 11:30:00 2021-10-08 11:30:00 Outpatient R ALICIA TELLEZ ELENITA [facility] [id number] [facility] 2021-10-08 00:00:00 2021-10-08 00:00:00 David Rodriguez [facility] 1.2.840.114 350.1.13.10 4.2.7.2.686 [id number] [facility] 2021-10-04 00:00:00 2021-10-04 00:00:00 Transition of Care Page Seth 1.2.840.114 350.1.13.10 4.2.7.2.686 [id number] [facility] 2021-10-02 16:53:00 2021-10-03 16:58:00 Hospital Encounter Jairo Jordan Anand Vilaschandr a [facility] 1.2.840.114 350.1.13.10 4.2.7.2.686 [id number] [facility] 2021-10-02 16:53:00 2021-10-03 16:58:00 Outpatient U RAFY UGARET [facility] [id number] [facility] 2021-10-02 16:53:00 2021-10-03 16:58:00 Outpatient U RAFY UGARTE [facility] [id number] [facility] 2021-10-02 16:53:00 2021-10-03 16:58:00 Outpatient RAFY BROWN [facility] [id number] [facility] 2021-10-02 16:53:00 2021-10-03 16:58:00 Outpatient U RAFY UGARTE [facility] [id number] [facility] 2021-10-02 16:53:00 2021-10-02 16:53:00 Outpatient U RAFY UGARTE [facility] [id number] [facility] 2021-10-02 16:00:00 2021-10-02 16:50:02 Outpatient BROOKS ROLLINS OGECHUKWU [facility] [id number] [facility] 2021-10-02 16:00:00 2021-10-02 16:50:02 Office Visit MjBrooks [facility] 1..840.114 350.1.13.10 4.2.7.2.686 [id number] [facility] 2021-10-02 16:00:00 2021-10-02 16:50:02 Outpatient R MJ, NUARIS BARKER NUDonnieVeronique [facility] [id number] [facility] 2021-10-02 16:00:00 2021-10-02 16:50:02 Outpatient R MJ NUARIS BARKER BROOKS [facility] [id number] [facility] 2021-10-02 16:00:00 2021-10-02 16:00:00 Outpatient R MJHOWARD BAUMANNDEISYBHANU BARKER NUDonnieVeronique [facility] [id number] [facility] 2021-10-01 00:00:00 2021-10-01 00:00:00 Transition of Care Page Seth 1..840.114 350.1.13.10 4.2.7.2.686 [id number] [facility] 2021-09-28 06:53:00 2021-09-29 16:50:00 Outpatient X CRISS LEYVA [facility] [id number] [facility] 2021-09-28 06:53:00 2021-09-29 16:50:00 Emergency Mary Reynaga David [facility] ..840.114 350.1.13.10 4.2.7.2.686 [id number] [facility] 2021-09-28 06:53:00 2021-09-29 16:50:00 Outpatient CRISS ALATORRE [facility] [id number] [facility] 2021-09-24 00:00:00 2021-09-24 00:00:00 Transition of Care Page Seth 1.2.840.114 350.1.13.10 4.2.7.2.686 [id number] [facility] 2021-09-21 07:09:00 2021-09-22 13:50:00 Inpatient X OH ESPINOZA [facility] [id number] [facility] 2021-09-21 07:09:00 2021-09-22 13:50:00 Hospital Encounter Michelle Miranda Yaman [facility] .2.840.114 350.1.13.10 4.2.7.2.686 [id number] [facility] 2021-09-21 07:09:00 2021-09-22 13:50:00 Inpatient X OH ESPINOZA [facility] [id number] [facility] 2021-09-21 07:09:00 2021-09-22 13:50:00 Inpatient OH WITT [facility] [id number] [facility] 2021-09-21 07:09:00 2021-09-22 13:50:00 Inpatient OH WITT [facility] [id number] [facility] 2021-09-21 07:09:00 2021-09-22 13:50:00 Inpatient OH WITT [facility] [id number] [facility] 2021-09-21 07:09:00 2021-09-22 13:50:00 Inpatient OH WITT [facility] [id number] [facility] 2021-09-21 07:09:00 2021-09-22 13:50:00 Inpatient OH WITT [facility] [id number] [facility] 2021-09-21 07:09:00 2021-09-22 13:50:00 Inpatient OH WITT [facility] [id number] [facility] 2021-09-20 06:50:00 2021-09-20 15:00:00 Hospital Encounter Judi, [facility] 1.0.114 350.1.13.10 4.2.7.2.686 [id number] [facility] 2021-09-20 06:50:00 2021-09-20 15:00:00 [facility] [id number] [facility] 2021-09-20 06:50:00 2021-09-20 15:00:00 [facility] [id number] [facility] 2021-09-20 06:39:38 2021-09-20 06:49:00 Outpatient R UNKNOWN, ATTENDING [facility] [id number] [facility] 2021-09-20 06:39:38 2021-09-20 06:49:00 Hospital Encounter Unknown, Attending [facility] 1..114 350.1.13.10 4.2.7.2.686 [id number] [facility] 2021-09-20 06:39:38 2021-09-20 06:49:00 Outpatient R UNKNOWN, ATTENDING [facility] [id number] [facility] 2021-09-20 00:00:00 2021-09-20 00:00:00 Telephone Juan Mazariegos [facility] 1.84.114 350.1.13.10 4.2.7.2.686 [id number] [facility] 2021-09-20 00:00:00 2021-09-20 00:00:00 Telephone Kim Jones [facility] NAL BUILD[facility] 1.84.114 350.1.13.10 4.2.7.2.686 [id number] [facility] 2021-09-20 00:00:00 2021-09-20 00:00:00 Telephone Nicolás MaJuan [facility] 1..840.114 350.1.13.10 4.2.7.2.686 [id number] [facility] 2021-09-19 00:00:00 2021-09-19 00:00:00 Telephone Cornelia Sanderson [facility] PROFESSIO NAL BUILDING 1..840.114 350.1.13.10 4.2.7.2.686 [id number] [facility] 2021-09-17 11:20:00 2021-09-17 11:20:00 [id number] 2021-09-17 11:20:00 2021-09-17 11:20:00 [facility] [id number] [facility] 2021-09-17 11:20:00 2021-09-17 11:20:00 [facility] [id number] [facility] 2021-09-17 11:20:00 2021-09-17 11:20:00 Outpatient Paul [facility] [id number] [facility] 2021-09-17 11:20:00 2021-09-17 11:20:00 Outpatient LORETA WILL [facility] [id number] [facility] 2021-09-16 11:54:00 2021-09-16 16:20:00 Emergency Mary Reynaga [facility] 1..840.114 350.1.13.10 4.2.7.2.686 [id number] [facility] 2021-09-16 11:30:00 2021-09-16 13:55:07 Outpatient BROOKS ROLLINS OGECHUKWU [facility] [id number] [facility] 2021-09-16 11:30:00 2021-09-16 13:55:07 Office Visit rBooks Barker [facility] NAL BUILDING 1.2.840.114 350.1.13.10 4.2.7.2.686 [id number] [facility] 2021-09-16 11:30:00 2021-09-16 13:55:07 Outpatient R BROOKS BARKER OGECHUKWU [facility] [id number] [facility] 2021-09-16 11:30:00 2021-09-16 11:30:00 Outpatient R BROOKS BARKER OGECHUKWU [facility] [id number] [facility] 2021-09-13 00:00:00 2021-09-13 00:00:00 Telephone Gino Rico [facility] 1.2.840.114 350.1.13.10 4.2.7.2.686 [id number] [facility] 2021-09-09 11:03:00 2021-09-09 17:12:00 Emergency X Jairo JORDAN [facility] [id number] [facility] 2021-09-09 11:03:00 2021-09-09 17:12:00 Emergency Jairo Jordan [facility] 1.2.840.114 350.1.13.10 4.2.7.2.686 [id number] [facility] 2021-09-09 11:03:00 2021-09-09 17:12:00 Emergency X Jairo JORDAN [facility] [id number] [facility] 2021-09-09 11:03:00 2021-09-09 17:12:00 Emergency X Jairo JORDAN [facility] [id number] [facility] 2021-09-09 00:00:00 2021-09-09 00:00:00 Telephone Juan [facility]azariegos [facility] 1..114 350.1.13.10 4.2.7.2.686 [id number] [facility] 2021-09-07 09:04:00 2021-09-07 13:57:00 Emergency X MARY REYNAGA [facility] [id number] [facility] 2021-09-07 09:04:00 2021-09-07 13:57:00 Emergency Mary Reynaga [facility] 1..114 350.1.13.10 4.2.7.2.686 [id number] [facility] 2021-09-07 09:04:00 2021-09-07 13:57:00 Emergency X MARY REYNAGA [facility] [id number] [facility] 2021-09-07 00:00:00 2021-09-07 00:00:00 Nurse Triage Macy Degroot [facility] 1..114 350.1.13.10 4.2.7.2.686 [id number] [facility] 2021-09-06 00:00:00 2021-09-06 00:00:00 Telephone Gino Rico [facility] 1.114 350.1.13.10 4.2.7.2.686 [id number] [facility] 2021-09-06 00:00:00 2021-09-06 00:00:00 Telephone Kim Jones [facility] 1.840.114 350.1.13.10 4.2.7.2.686 [id number] [facility] 2021-09-06 00:00:00 2021-09-06 00:00:00 Orders Only Doctor Unassigned, [place] [facility] ..840.114 350.1.13.10 4.2.7.2.686 [id number] [facility] 2021-09-05 13:00:00 2021-09-05 13:58:09 Outpatient R KIM JONES [facility] [id number] [facility] 2021-09-05 13:00:00 2021-09-05 13:58:09 Outpatient R KIM JONES [facility] [id number] [facility] 2021-09-05 13:00:00 2021-09-05 13:58:09 Office Visit Kim Jones [facility] 1..840.114 350.1.13.10 4.2.7.2.686 [id number] [facility] 2021-09-05 13:00:00 2021-09-05 13:58:09 Outpatient R KIM JONES [facility] [id number] [facility] 2021-09-05 13:00:00 2021-09-05 13:58:09 Outpatient R KIM JONES [facility] [id number] [facility] 2021-09-05 13:00:00 2021-09-05 13:58:09 Outpatient R KIM JONES [facility] [id number] [facility] 2021-09-05 13:00:00 2021-09-05 13:00:00 Outpatient R KIM JONES [facility] [id number] [facility] 2021-09-04 00:00:00 2021-09-04 00:00:00 Transition of Care Page Seth 1..840.114 350.1.13.10 4.2.7.2.686 [id number] [facility] 2021-09-03 00:00:00 2021-09-03 00:00:00 Transition of Care Page Seth 1.2.840.114 350.1.13.10 4.2.7.2.686 [id number] [facility] 2021-08-28 17:20:00 2021-09-02 13:00:00 Hospital Encounter Michelle Miranda Joseph Abu Athershanel, [facility] 1.2.840.114 350.1.13.10 4.2.7.2.686 [id number] [facility] 2021-08-28 17:20:00 2021-09-02 13:00:00 Inpatient X KALEN [facility] [id number] [facility] 2021-08-28 17:20:00 2021-09-02 13:00:00 Inpatient X KALEN [facility] [id number] [facility] 2021-08-31 00:00:00 2021-08-31 00:00:[address] [facility] 1.2.840.114 350.1.13.10 4.2.7.2.686 [id number] [facility] 2021-08-31 00:00:00 2021-08-31 00:00:[address] [facility] 1.2.840.114 350.1.13.10 4.2.7.2.686 [id number] [facility] 2021-08-30 14:30:00 2021-08-30 14:30:00 Outpatient JUAN HARRISON [facility] [id number] [facility] 2021-08-28 16:30:00 2021-08-28 17:14:19 Outpatient R MJ, BROOKS BARKER, [facility] [id number] [facility] 2021-08-28 16:30:00 2021-08-28 17:14:19 Outpatient R MJ, BROOKS BARKER, OGECHUKWU [facility] [id number] [facility] 2021-08-28 16:30:00 2021-08-28 17:14:19 [facility] 1.2.840.114 350.1.13.10 4.2.7.2.686 [id number] [facility] [id number] [facility] 2021-08-28 16:30:00 2021-08-28 17:14:19 Outpatient R MJ, BROOKS BARKER, OGECHUKWU [facility] [id number] [facility] 2021-08-28 16:30:00 2021-08-28 17:14:19 Outpatient R MJ, BROOKS BARKER, OGECHUKWU [facility] [id number] [facility] 2021-08-28 16:30:00 2021-08-28 17:14:19 Outpatient R MJ, MINERVAU MJ, OGE[facility]WU [facility] [id number] [facility] 2021-08-28 16:30:00 2021-08-28 17:14:19 Outpatient R MJ, MINERVAU MJ, OGECHUKWU [facility] [id number] [facility] 2021-08-28 16:30:00 2021-08-28 17:14:19 Outpatient R MJ, NUWU MJ, OGECHUKWU [facility] [id number] [facility] 2021-08-28 16:30:00 2021-08-28 17:14:19 Outpatient R MJ, NUDonnieU MJBROOKS BAUMANN [facility] [id number] [facility] 2021-08-28 16:30:00 2021-08-28 17:14:19 Outpatient R BROOKS BARKER OGECHUKWU [facility] [id number] [facility] 2021-08-28 16:30:00 2021-08-28 17:14:19 Outpatient R BROOKS BARKER OGECHUKWU [facility] [id number] [facility] 2021-08-28 00:00:00 2021-08-28 00:00:00 Telephone Kim Jones [facility] 1.2.840.114 350.1.13.10 4.2.7.2.686 [id number] [facility] 2021-08-28 00:00:00 2021-08-28 00:00:00 Patient Outreach Shahnaz Ulloa [facility] 1.2.840.114 350.1.13.10 4.2.7.2.686 [id number] [facility] 2021-08-27 00:00:00 2021-08-27 00:00:00 Transition of Care Page Seth 1.2.840.114 350.1.13.10 4.2.7.2.686 [id number] [facility] 2021-08-27 00:00:00 2021-08-27 00:00:00 Orders Only Doctor Unassigned, [place] [facility] 1.2840.114 350.1.13.10 4.2.7.2.686 [id number] [facility] 2021-08-22 22:10:00 2021-08-26 10:50:00 Inpatient X [place] ESPINOZA [facility] [id number] [facility] 2021-08-22 22:10:00 2021-08-26 10:50:00 Inpatient X [place] ESPINOZA [facility] [id number] [facility] 2021-08-22 22:10:00 2021-08-26 10:50:00 Inpatient X [place] ESPINOZA [facility] [id number] [facility] 2021-08-22 22:10:00 2021-08-26 10:50:00 Inpatient X [place] ESPINOZA [facility] [id number] [facility] 2021-08-22 22:10:00 2021-08-26 10:50:00 Inpatient X [place] ESPINOZA [facility] [id number] [facility] 2021-08-22 22:10:00 2021-08-26 10:50:00 [facility] [id number] 2021-08-22 22:10:00 2021-08-26 10:50:00 Hospital Encounter Taz Vergara Adnan Abdullah, Yaman [facility] 1..840.114 350.1.13.10 4.2.7.2.686 [id number] [facility] 2021-08-26 00:00:00 2021-08-26 00:00:00 Outpatient FERNANDA DOWNING [facility] [id number] [facility] 2021-08-26 00:00:00 2021-08-26 00:00:00 Telephone [facility] 1..840.114 350.1.13.10 4.2.7.2.686 [id number] [facility] 2021-08-23 08:50:00 2021-08-23 08:50:00 Outpatient MOHSEN LEOS [facility] [id number] [facility] 2021-08-23 08:50:00 2021-08-23 08:50:00 Outpatient SABIHA LEOSS [facility] [id number] [facility] 2021-08-23 08:50:00 2021-08-23 08:50:00 Outpatient SABIHA LEOSS [facility] [id number] [facility] 2021-08-23 08:50:00 2021-08-23 08:50:00 [id number] 2021-08-23 08:50:00 2021-08-23 08:50:00 Outpatient MOHSEN LEOS [facility] [id number] [facility] 2021-08-23 08:50:00 2021-08-23 08:50:00 [facility] [id number] [facility] 2021-08-23 08:50:00 2021-08-23 08:50:00 [id number] 2021-08-23 08:50:00 2021-08-23 08:50:00 [facility] [id number] [facility] 2021-08-20 00:00:00 2021-08-20 00:00:00 Transition of Care Page Seth 1.2.840.114 350.1.13.10 4.2.7.2.686 [id number] [facility] 2021-08-13 18:42:00 2021-08-16 11:20:00 Inpatient X BJ WEISS [facility] [id number] [facility] 2021-08-13 18:42:00 2021-08-16 11:20:00 Inpatient X BJ WEISS [facility] [id number] [facility] 2021-08-13 18:42:00 2021-08-16 11:20:00 Inpatient X BJ WEISS [facility] [id number] [facility] 2021-08-13 18:42:00 2021-08-16 11:20:00 Inpatient BJ PLASCENCIA [facility] [id number] [facility] 2021-08-13 18:42:00 2021-08-16 11:20:00 Hospital Encounter Henrique Remy MichaelOh ugarte Jelani [facility] 1.2.840.114 350.1.13.10 4.2.7.2.686 [id number] [facility] 2021-08-14 14:45:00 2021-08-14 14:45:00 Outpatient ROBERTO WANG [facility] [id number] [facility] 2021-08-14 14:45:00 2021-08-14 14:45:00 Outpatient ROBERTO WANG [facility] [id number] [facility] 2021-08-14 14:45:00 2021-08-14 14:45:00 Outpatient ROBERTO WANG [facility] [id number] [facility] 2021-08-14 14:45:00 2021-08-14 14:45:00 Outpatient ROBERTO WANG [facility] [id number] [facility] 2021-08-14 14:45:00 2021-08-14 14:45:00 Outpatient ROBERTO WANG [facility] [id number] [facility] 2021-08-14 14:45:00 2021-08-14 14:45:00 Outpatient ROBERTO WANG [facility] [id number] [facility] 2021-08-14 14:45:00 2021-08-14 14:45:00 Outpatient ROBERTO WANG [facility] [id number] [facility] 2021-08-14 14:45:00 2021-08-14 14:45:00 Outpatient ROBERTO WANG [facility] [id number] [facility] 2021-08-14 00:00:00 2021-08-14 00:00:00 Telephone Juan [facility]os [facility] 1.2.840.114 350.1.13.10 4.2.7.2.686 [id number] [facility] 2021-08-12 15:00:00 2021-08-12 15:56:28 Outpatient R MJ, OGSIMINU MJ, OGECHUKWU [facility] [id number] [facility] 2021-08-12 15:00:00 2021-08-12 15:56:28 Outpatient R MJ OGECHBHANU BARKER, OGECHUKWU [facility] [id number] [facility] 2021-08-12 15:00:00 2021-08-12 15:56:28 Outpatient R MJ, OGECHCANU MJ, OGECHUKWU [facility] [id number] [facility] 2021-08-12 15:00:00 2021-08-12 15:56:28 Outpatient R MJ, OGECHCANU MJ, OGECHUKWU [facility] [id number] [facility] 2021-08-12 15:00:00 2021-08-12 15:56:28 Outpatient R MJ, OGECHCANU MJ, OGECHUKWU [facility] [id number] [facility] 2021-08-12 15:00:00 2021-08-12 15:56:28 Outpatient R MJ, OGECHUKDonnieU MJ, OGECHUKWU [facility] [id number] [facility] 2021-08-12 15:00:00 2021-08-12 15:56:28 Outpatient R MJ, OGECHUKDonnieU MJ, OGECHUKWU [facility] [id number] [facility] 2021-08-12 15:00:00 2021-08-12 15:56:28 Office Visit Brooks Barker [facility] 1.2.840.114 350.1.13.10 4.2.7.2.686 [id number] [facility] 2021-08-09 00:00:00 2021-08-09 00:00:00 Refill Kim Jones [facility] 1.284.114 350.1.13.10 4.2.7.2.686 [id number] [facility] 2021-08-07 14:30:00 2021-08-07 14:30:00 Outpatient ROBERTO WANG [facility] [id number] [facility] 2021-08-07 00:00:00 2021-08-07 00:00:00 Transition of Care Page Seth 1.84.114 350.1.13.10 4.2.7.2.686 [id number] [facility] 2021-08-04 16:37:00 2021-08-06 15:45:00 Inpatient X CRISS LEYVA [facility] [id number] [facility] 2021-08-04 16:37:00 2021-08-06 15:45:00 Inpatient X CRISS LEYVA [facility] [id number] [facility] 2021-08-04 16:37:00 2021-08-06 15:45:00 Inpatient X CRISS LEYVA [facility] [id number] [facility] 2021-08-04 16:37:00 2021-08-06 15:45:00 Hospital Encounter Destiny Gomez David [facility] 1.2.840.114 350.1.13.10 4.2.7.2.686 [id number] [facility] 2021-08-04 16:37:00 2021-08-06 15:45:00 Inpatient X CRISS LEYVA [facility] [id number] [facility] 2021-08-04 16:37:00 2021-08-06 15:45:00 Inpatient CRISS ALATORRE [facility] [id number] [facility] 2021-08-04 16:37:00 2021-08-04 16:37:00 Inpatient CRISS ALATORRE [facility] [id number] [facility] 2021-08-02 09:50:00 2021-08-02 09:50:00 [facility] [id number] [facility] 2021-08-02 09:50:00 2021-08-02 09:50:00 Imm/Inj Visit Nurse, Scotty Pocoy ImmunizatiMohsen Merritt [facility] 1.2.840.114 350.1.13.10 4.2.7.2.686 [id number] [facility] 2021-08-02 09:50:00 2021-08-02 09:45:35 Outpatient MOHSEN LEOS [facility] [id number] [facility] 2021-08-02 09:50:00 2021-08-02 09:45:35 Outpatient MOHSEN LEOS [facility] [id number] [facility] 2021-08-02 09:50:00 2021-08-02 09:45:35 Outpatient MOHSEN LEOS [facility] [id number] [facility] 2021-08-02 09:50:00 2021-08-02 09:45:35 Outpatient MOHSEN LEOS [facility] [id number] [facility] 2021-08-02 09:50:00 2021-08-02 09:45:35 Outpatient MOHSEN LEOS [facility] [id number] [facility] 2021-08-02 09:50:00 2021-08-02 09:45:35 Outpatient MOHSEN LEOS [facility] [id number] [facility] 2021-08-02 09:50:00 2021-08-02 09:45:35 Outpatient MOHSEN LEOS [facility] [id number] [facility] 2021-08-02 09:50:00 2021-08-02 09:45:35 [facility] [id number] [facility] 2021-08-01 00:00:00 2021-08-01 00:00:00 Telephone Kim Jones [facility] 1.2.840.114 350.1.13.10 4.2.7.2.686 [id number] [facility] 2021-07-31 15:00:00 2021-07-31 15:00:00 Outpatient ROBERTO WANG [facility] [id number] [facility] 2021-07-31 15:00:00 2021-07-31 15:00:00 Outpatient ROBERTO WANG [facility] [id number] [facility] 2021-07-30 07:42:00 2021-07-30 08:48:00 Emergency X PIA WATTS [facility] [id number] [facility] 2021-07-30 07:42:00 2021-07-30 08:48:00 Emergency X PIA WATTS [facility] [id number] [facility] 2021-07-30 07:42:00 2021-07-30 08:48:00 Emergency X PIA WATTS [facility] [id number] [facility] 2021-07-30 07:42:00 2021-07-30 08:48:00 Emergency X PIA WATTS [facility] [id number] [facility] 2021-07-30 07:42:00 2021-07-30 08:48:00 Emergency X PIA WATTS [facility] [id number] [facility] 2021-07-30 07:42:00 2021-07-30 08:48:00 Emergency Pia Watts [facility] 1.2.840.114 350.1.13.10 4.2.7.2.686 [id number] [facility] 2021-07-30 07:42:00 2021-07-30 08:48:00 Emergency X PIA WATTS [facility] [id number] [facility] 2021-07-29 20:51:00 2021-07-29 23:32:00 Emergency X DEBBY BROWN [facility] [id number] [facility] 2021-07-29 20:51:00 2021-07-29 23:32:00 Emergency X DEBBY BROWN [facility] [id number] [facility] 2021-07-29 20:51:00 2021-07-29 23:32:00 Emergency Debby Brown [facility] 1.2.840.114 350.1.13.10 4.2.7.2.686 [id number] [facility] 2021-07-29 20:51:00 2021-07-29 23:32:00 Emergency X DEBBY BROWN [facility] [id number] [facility] 2021-07-29 00:00:00 2021-07-29 00:00:00 Nurse Triage Adilene Dumas [facility] 1.2.840.114 350.1.13.10 4.2.7.2.686 [id number] [facility] 2021-07-28 13:37:00 2021-07-28 17:00:00 Emergency X DEBBY BROWN [facility] [id number] [facility] 2021-07-28 13:37:00 2021-07-28 17:00:00 Emergency X BROWNDEBBY CASTILLO [facility] [id number] [facility] 2021-07-28 13:37:00 2021-07-28 17:00:00 Emergency BrownDebby castillo S [facility] 1.2.840.114 350.1.13.10 4.2.7.2.686 [id number] [facility] 2021-07-28 13:37:00 2021-07-28 17:00:00 Emergency X BROWN, DEBBY [facility] [id number] [facility] 2021-07-27 00:00:00 2021-07-27 00:00:00 Nurse Triage Fermin [facility] 1.2.840.114 350.1.13.10 4.2.7.2.686 [id number] [facility] 2021-07-25 00:00:00 2021-07-25 00:00:00 Transition of Care Page Seth [facility] 1.2.840.114 350.1.13.10 4.2.7.2.686 [id number] [facility] 2021-07-25 00:00:00 2021-07-25 00:00:00 Telephone Kim Jones [facility] 1.2.840.114 350.1.13.10 4.2.7.2.686 [id number] [facility] 2021-07-24 16:12:00 2021-07-24 16:59:00 Emergency X PIA WATTS [facility] [id number] [facility] 2021-07-24 16:12:00 2021-07-24 16:59:00 Emergency X PIA WATTS [facility] [id number] [facility] 2021-07-24 16:12:00 2021-07-24 16:59:00 Emergency X PIA WATTS [facility] [id number] [facility] 2021-07-24 16:12:00 2021-07-24 16:59:00 Emergency X PIA WATTS [facility] [id number] [facility] 2021-07-24 16:12:00 2021-07-24 16:59:00 Emergency X PIA WATTS [facility] [id number] [facility] 2021-07-24 16:12:00 2021-07-24 16:59:00 Emergency X PIA WATTS [facility] [id number] [facility] 2021-07-24 16:12:00 2021-07-24 16:59:00 Emergency X PIA WATTS [facility] [id number] [facility] 2021-07-24 16:12:00 2021-07-24 16:59:00 Emergency Pia Watts [facility] 1.2.840.114 350.1.13.10 4.2.7.2.686 [id number] [facility] 2021-07-22 11:38:00 2021-07-24 13:01:00 Outpatient X BJ WEISS [facility] [id number] [facility] 2021-07-22 11:38:00 2021-07-24 13:01:00 Outpatient X BJ WEISS [facility] [id number] [facility] 2021-07-22 11:38:00 2021-07-24 13:01:00 Emergency Karine Loja Bj [facility] 1.2.840.114 350.1.13.10 4.2.7.2.686 [id number] [facility] 2021-07-22 11:38:00 2021-07-24 13:01:00 Outpatient X BJ WEISS [facility] [id number] [facility] 2021-07-22 11:38:00 2021-07-22 11:38:00 Emergency X KARINE LOJA [facility] [id number] [facility] 2021-07-22 00:00:00 2021-07-22 00:00:00 Telephone Surendra Jonesth Orlin [facility] [place] [facility] 1.2.840.114 350.1.13.10 4.2.7.2.686 [id number] [facility] 2021-07-19 14:30:00 2021-07-19 14:31:55 Outpatient R NICOLÁS MAJUAN [facility] [id number] [facility] 2021-07-19 14:30:00 2021-07-19 14:31:55 Outpatient R NICOLÁS MAJUAN [facility] [id number] [facility] 2021-07-19 14:30:00 2021-07-19 14:31:55 Outpatient R NICOLÁS MAJUAN [facility] [id number] [facility] 2021-07-19 14:30:00 2021-07-19 14:31:55 Outpatient R NICOLÁS MAJUAN [facility] [id number] [facility] 2021-07-19 14:30:00 2021-07-19 14:31:55 Outpatient R NICOLÁS MAJUAN [facility] [id number] [facility] 2021-07-19 14:30:00 2021-07-19 14:31:55 Outpatient R NICOLÁS MAJUAN [facility] [id number] [facility] 2021-07-19 14:30:00 2021-07-19 14:31:55 Outpatient R NICOLÁS MA JUAN [facility] [id number] [facility] 2021-07-19 14:30:00 2021-07-19 14:31:55 Outpatient R NICOLÁS MA JUAN [facility] [id number] [facility] 2021-07-19 14:30:00 2021-07-19 14:31:55 Outpatient R JUAN MAZARIEGOS [facility] [id number] [facility] 2021-07-19 14:30:00 2021-07-19 14:31:55 Outpatient R JUAN MAZARIEGOS [facility] [id number] [facility] 2021-07-19 14:30:00 2021-07-19 14:31:55 Office Visit Juan [facility] 1.840.114 350.1.13.10 4.2.7.2.686 [id number] [facility] 2021-07-19 14:30:00 2021-07-19 14:31:55 Outpatient R JUAN MAZARIEGOS [facility] [id number] [facility] 2021-07-19 14:30:00 2021-07-19 14:31:55 Outpatient R JUAN MAZARIEGOS [facility] [id number] [facility] 2021-07-19 00:00:00 2021-07-19 00:00:00 Telephone Juan Mazariegos [facility] 1..840.114 350.1.13.10 4.2.7.2.686 [id number] [facility] 2021-07-19 00:00:00 2021-07-19 00:00:00 Telephone Juan Mazariegos [facility] 1..840.114 350.1.13.10 4.2.7.2.686 [id number] [facility] 2021-07-17 22:49:00 2021-07-18 00:38:00 Emergency X LUIS ANGEL JIMENEZ [facility] [id number] [facility] 2021-07-17 22:49:00 2021-07-18 00:38:00 Emergency X LUIS ANGEL JIMENEZ [facility] [id number] [facility] 2021-07-17 22:49:00 2021-07-18 00:38:00 Emergency Luis Angel Jimenez [facility] 1.2840.114 350.1.13.10 4.2.7.2.686 [id number] [facility] 2021-07-17 22:49:00 2021-07-18 00:38:00 Emergency X LUIS ANGEL JIMENEZ [facility] [id number] [facility] 2021-07-17 00:00:00 2021-07-17 00:00:00 Telephone Juan [facility]azariegos [facility] 1..114 350.1.13.10 4.2.7.2.686 [id number] [facility] 2021-07-17 00:00:00 2021-07-17 00:00:00 Telephone [facility]..114 350.1.13.10 4.2.7.2.686 [id number] [facility] 2021-07-17 00:00:00 2021-07-17 00:00:00 Transition of Care Yvonne [place] 1..114 350.1.13.10 4.2.7.2.686 [id number] [facility] 2021-07-14 18:17:00 2021-07-16 10:24:00 Outpatient X BJ WEISS [facility] [id number] [facility] 2021-07-14 18:17:00 2021-07-16 10:24:00 Outpatient X BJ WEISS [facility] [id number] [facility] 2021-07-14 18:17:00 2021-07-16 10:24:00 Outpatient X BJ WEISS [facility] [id number] [facility] 2021-07-14 18:17:00 2021-07-16 10:24:00 Outpatient X BJ WEISS [facility] [id number] [facility] 2021-07-14 18:17:00 2021-07-16 10:24:00 Outpatient X BJ WEISS [facility] [id number] [facility] 2021-07-14 18:17:00 2021-07-16 10:24:00 Outpatient X BJ WEISS [facility] [id number] [facility] 2021-07-14 18:17:00 2021-07-16 10:24:00 Outpatient X BJ WEISS [facility] [id number] [facility] 2021-07-14 18:17:00 2021-07-16 10:24:00 Outpatient X BJ WEISS [facility] [id number] [facility] 2021-07-14 18:17:00 2021-07-16 10:24:00 Outpatient X BJ WEISS [facility] [id number] [facility] 2021-07-14 18:17:00 2021-07-16 10:24:00 Outpatient X BJ WEISS [facility] [id number] [facility] 2021-07-14 18:17:00 2021-07-16 10:24:00 Hospital Encounter Destiny Gomez Bj [facility] 1.2.840.114 350.1.13.10 4.2.7.2.686 [id number] [facility] 2021-07-14 18:17:00 2021-07-16 10:24:00 Outpatient X BJ WEISS [facility] [id number] [facility] 2021-07-14 18:17:00 2021-07-16 10:24:00 Outpatient X BJ WEISS [facility] [id number] [facility] 2021-07-14 18:17:00 2021-07-14 18:17:00 Outpatient BJ PLASCENCIA [facility] [id number] [facility] 2021-07-09 14:00:00 2021-07-09 14:00:00 Outpatient Paul NICOLÁS HAASJUAN Ordaz [facility] [id number] [facility] 2021-07-09 14:00:00 2021-07-09 14:00:00 Outpatient Paul NICOLÁS HAASJUAN Ordaz [facility] [id number] [facility] 2021-07-09 14:00:00 2021-07-09 14:00:00 Outpatient Paul NICOLÁS HAASJUNA Ordaz [facility] [id number] [facility] 2021-07-09 14:00:00 2021-07-09 14:00:00 Outpatient Paul MAJUAN [facility] [id number] [facility] 2021-07-09 14:00:00 2021-07-09 14:00:00 Outpatient Paul DELYe FRANCESCA, JOSE [facility] [id number] [facility] 2021-07-09 14:00:00 2021-07-09 14:00:00 Outpatient Paul NICOLÁS MAJUAN [facility] [id number] [facility] 2021-07-09 14:00:00 2021-07-09 14:00:00 Outpatient Paul HAASJUAN Ordaz [facility] [id number] [facility] 2021-07-09 14:00:00 2021-07-09 14:00:00 Outpatient Paul HAASJUAN Ordaz [facility] [id number] [facility] 2021-07-09 00:00:00 2021-07-09 00:00:00 Telephone Kim Jones [facility] 1.2.840.114 350.1.13.10 4.2.7.2.686 [id number] [facility] 2021-07-09 00:00:00 2021-07-09 00:00:00 Telephone Kim Jones [facility] 1.2.840.114 350.1.13.10 4.2.7.2.686 [id number] [facility] 2021-07-08 10:08:00 2021-07-08 14:13:00 Emergency X MARY REYNAGA [facility] [id number] [facility] 2021-07-08 10:08:00 2021-07-08 14:13:00 Emergency X MARY REYNAGA [facility] [id number] [facility] 2021-07-08 10:08:00 2021-07-08 14:13:00 Emergency Mary Reynaga [facility] 1.2.840.114 350.1.13.10 4.2.7.2.686 [id number] [facility] 2021-07-08 10:08:00 2021-07-08 14:13:00 Emergency X MARY REYNAGA [facility] [id number] [facility] 2021-07-08 10:08:00 2021-07-08 14:13:00 Emergency X MARY REYNAGA [facility] [id number] [facility] 2021-07-08 10:08:00 2021-07-08 14:13:00 Emergency X MARY REYNAGA [facility] [id number] [facility] 2021-07-08 10:08:00 2021-07-08 10:08:00 Emergency X MARY REYNAGA [facility] [id number] [facility] 2021-07-08 00:00:00 2021-07-08 00:00:00 Telephone Kim Jones [facility] 1.2.840.114 350.1.13.10 4.2.7.2.686 [id number] [facility] 2021-07-04 00:00:00 2021-07-04 00:00:00 Transition of Care Page Seth 1.2.840.114 350.1.13.10 4.2.7.2.686 [id number] [facility] 2021-07-04 00:00:00 2021-07-04 00:00:00 Orders Only Doctor Unassigned, [place] [facility] 1.2840.114 350.1.13.10 4.2.7.2.686 [id number] [facility] 2021-07-01 16:45:00 2021-07-03 13:06:00 Inpatient X CRISS LEYVA [facility] [id number] [facility] 2021-07-01 16:45:00 2021-07-03 13:06:00 Hospital Encounter Karine Loja David [facility] 1.840.114 350.1.13.10 4.2.7.2.686 [id number] [facility] 2021-07-03 00:00:00 2021-07-03 00:00:00 Telephone Kim Jones [facility] 1.2840.114 350.1.13.10 4.2.7.2.686 [id number] [facility] 2021-07-03 00:00:00 2021-07-03 00:00:00 Telephone Kim Jones [facility] 1.2840.114 350.1.13.10 4.2.7.2.686 [id number] [facility] 2021-07-01 15:40:00 2021-07-02 08:32:30 Outpatient R SHAR JONESBETH [facility] [id number] [facility] 2021-07-01 15:40:00 2021-07-02 08:32:30 Outpatient KIM HU [facility] [id number] [facility] 2021-07-01 15:40:00 2021-07-02 08:32:30 Outpatient R SURENDRA JONESTH [facility] [id number] [facility] 2021-07-01 15:40:00 2021-07-02 08:32:30 Outpatient R KIM JONES [facility] [id number] [facility] 2021-07-01 15:40:00 2021-07-02 08:32:30 Outpatient R KIM JONES [facility] [id number] [facility] 2021-07-01 15:40:00 2021-07-02 08:32:30 Outpatient R SURENDRA JONESTH [facility] [id number] [facility] 2021-07-01 15:40:00 2021-07-02 08:32:30 Outpatient R KIM JONES [facility] [id number] [facility] 2021-07-01 15:40:00 2021-07-02 08:32:30 Outpatient R KIM JONES [facility] [id number] [facility] 2021-07-01 15:40:00 2021-07-02 08:32:30 Outpatient R KIM JONES [facility] [id number] [facility] 2021-07-01 15:40:00 2021-07-02 08:32:30 Outpatient R KIM JONES [facility] [id number] [facility] 2021-07-01 15:40:00 2021-07-02 08:32:30 Outpatient R KIM JONES [facility] [id number] [facility] 2021-07-01 15:40:00 2021-07-02 08:32:30 Office [facility] [id number] 350.1.13.10 [id number] [id number] [facility] 2021-07-01 15:40:00 2021-07-02 08:32:30 Outpatient R KIM JONES [facility] [id number] [facility] 2021-07-01 15:40:00 2021-07-02 08:32:30 Outpatient R KIM JONES [facility] [id number] [facility] 2021-07-02 00:00:00 2021-07-02 00:00:00 Telephone Kim Jones [facility] 1.2.840.114 350.1.13.10 4.2.7.2.686 [id number] [facility] 2021-07-02 00:00:00 2021-07-02 00:00:00 Telephone Kim Jones [facility] 1.2.840.114 350.1.13.10 4.2.7.2.686 [id number] [facility] 2021-07-02 00:00:00 2021-07-02 00:00:00 Telephone Kim Jones [facility] 1.2.840.114 350.1.13.10 4.2.7.2.686 [id number] [facility] 2021-07-01 15:40:00 2021-07-01 15:40:00 Outpatient R JONESDILLONKIM [facility] [id number] [facility] 2021-07-01 15:40:00 2021-07-01 15:40:00 Outpatient R KIM JONES [facility] [id number] [facility] 2021-07-01 00:00:00 2021-07-01 00:00:00 Telephone Surendra Jonessincere [facility] 1.2.840.114 350.1.13.10 4.2.7.2.686 [id number] [facility] 2021-07-01 00:00:00 2021-07-01 00:00:00 Telephone Robert Kim Orlin [facility] 1.2.840.114 350.1.13.10 4.2.7.2.686 [id number] [facility] 2021-06-28 00:00:00 2021-06-28 00:00:00 [facility] 1.2.840.114 350.1.13.10 4.2.7.2.686 [id number] [facility] 2021-06-26 16:38:40 2021-06-26 23:59:00 Outpatient R KIM JONES [facility] [id number] [facility] 2021-06-26 16:38:40 2021-06-26 23:59:00 Hospital Encounter Kim Jones Orlin [facility] 1.2.840.114 350.1.13.10 4.2.7.2.686 [id number] [facility] 2021-06-26 16:38:40 2021-06-26 23:59:00 Outpatient R KIM JONES [facility] [id number] [facility] 2021-06-26 00:00:00 2021-06-26 00:00:00 Outpatient R KIM JONES [facility] [id number] [facility] 2021-06-26 00:00:00 2021-06-26 00:00:00 Juan Collado [facility] 1.2.840.114 350.1.13.10 4.2.7.2.686 [id number] [facility] 2021-06-25 14:00:00 2021-06-25 14:22:55 Outpatient R JUAN MAZARIEGOS [facility] [id number] [facility] 2021-06-25 14:00:00 2021-06-25 14:22:55 Outpatient R JUAN MAZARIEGOS [facility] [id number] [facility] 2021-06-25 14:00:00 2021-06-25 14:22:55 Outpatient R JUAN MAZARIEGOS [facility] [id number] [facility] 2021-06-25 14:00:00 2021-06-25 14:22:55 Outpatient R JUAN MAZARIEGOS [facility] [id number] [facility] 2021-06-25 14:00:00 2021-06-25 14:22:55 Outpatient R JUAN MAZARIEGOS [facility] [id number] [facility] 2021-06-25 14:00:00 2021-06-25 14:22:55 Outpatient R JUAN MAZARIEGOS [facility] [id number] [facility] 2021-06-25 14:00:00 2021-06-25 14:22:55 Outpatient JUAN HARRISON [facility] [id number] [facility] 2021-06-25 14:00:00 2021-06-25 14:22:55 Outpatient R JUAN MAZARIEGOS [facility] [id number] [facility] 2021-06-25 14:00:00 2021-06-25 14:22:55 Outpatient R ANA LUISAEDINSON FRANCESCA, JOSE [facility] [id number] [facility] 2021-06-25 14:00:00 2021-06-25 14:22:55 Outpatient R NICOLÁS MAJUAN [facility] [id number] [facility] 2021-06-25 14:00:00 2021-06-25 14:22:55 Outpatient R NICOLÁS MAJUAN [facility] [id number] [facility] 2021-06-25 14:00:00 2021-06-25 14:22:55 Outpatient R NICOLÁS MAJUAN [facility] [id number] [facility] 2021-06-25 14:00:00 2021-06-25 14:22:55 Outpatient R NICOLÁS HAASJUAN Ordaz [facility] [id number] [facility] 2021-06-25 14:00:00 2021-06-25 14:22:55 Outpatient R NICOLÁS MAJUAN [facility] [id number] [facility] 2021-06-25 14:00:00 2021-06-25 14:22:55 Outpatient R NICOLÁS MA JUAN [facility] [id number] [facility] 2021-06-25 13:55:53 2021-06-25 14:22:55 Office Visit Juan [facility]iegos [facility] ..114 350.1.13.10 4.2.7.2.686 [id number] [facility] 2021-06-22 00:00:00 2021-06-22 00:00:00 Orders Only Doctor Unassigned, [place] [facility] 1..114 350.1.13.10 4.2.7.2.686 [id number] [facility] 2021-06-20 11:20:00 2021-06-20 12:36:56 Outpatient R JONESDILLONKIM [facility] [id number] [facility] 2021-06-20 11:20:00 2021-06-20 12:36:56 Outpatient R KIM JONES [facility] [id number] [facility] 2021-06-20 11:08:22 2021-06-20 12:36:56 Office Visit Kim Jones [facility] 1.2.840.114 350.1.13.10 4.2.7.2.686 [id number] [facility] 2021-06-18 15:00:00 2021-06-18 15:00:00 Outpatient JUAN HARRISON [facility] [id number] [facility] 2021-06-18 15:00:00 2021-06-18 15:00:00 Outpatient JUAN HARRISON [facility] [id number] [facility] 2021-06-18 15:00:00 2021-06-18 15:00:00 Outpatient JUAN HARRISON [facility] [id number] [facility] 2021-06-18 15:00:00 2021-06-18 15:00:00 Outpatient JUAN HARRISON [facility] [id number] [facility] 2021-06-18 15:00:00 2021-06-18 15:00:00 Outpatient JUAN HARRISON [facility] [id number] [facility] 2021-06-18 15:00:00 2021-06-18 15:00:00 Outpatient JUAN HARRISON [facility] [id number] [facility] 2021-06-18 00:00:00 2021-06-18 00:00:00 Telephone Kim Jones [facility] 1.2.840.114 350.1.13.10 4.2.7.2.686 [id number] [facility] 2021-06-18 00:00:00 2021-06-18 00:00:00 Telephone Kim Jones [facility] 1.2.840.114 350.1.13.10 4.2.7.2.686 [id number] [facility] 2021-06-17 00:00:00 2021-06-17 00:00:00 Telephone [facility] 1.2.840.114 350.1.13.10 4.2.7.2.686 [id number] [facility] 2021-06-17 00:00:00 2021-06-17 00:00:00 Telephone [facility] 1.2.840.114 350.1.13.10 4.2.7.2.686 [id number] [facility] 2021-06-14 15:20:00 2021-06-14 15:20:00 Outpatient R KIM JONES [facility] [id number] [facility] 2021-06-14 15:20:00 2021-06-14 15:20:00 Outpatient R KIM JONES [facility] [id number] [facility] 2021-06-14 15:20:00 2021-06-14 15:20:00 Outpatient R KIM JONES [facility] [id number] [facility] 2021-06-14 15:20:00 2021-06-14 15:20:00 Outpatient R KIM JONES [facility] [id number] [facility] 2021-06-14 15:20:00 2021-06-14 15:20:00 Outpatient R KIM JONES [facility] [id number] [facility] 2021-06-14 15:20:00 2021-06-14 15:20:00 [facility] [id number] [facility] 2021-06-14 15:20:00 2021-06-14 15:20:00 Outpatient KIM HU [facility] [id number] [facility] 2021-06-14 15:20:00 2021-06-14 15:20:00 Outpatient R SHAR JONESBETH [facility] [id number] [facility] 2021-06-14 15:20:00 2021-06-14 15:20:00 Outpatient R KIM JONES [facility] [id number] [facility] 2021-06-14 00:00:00 2021-06-14 00:00:00 Transition of Care Page Seth 1..840.114 350.1.13.10 4.2.7.2.686 [id number] [facility] 2021-06-12 07:39:00 2021-06-13 14:00:00 Outpatient CRISS ALATORRE [facility] [id number] [facility] 2021-06-12 07:39:00 2021-06-13 14:00:00 Emergency iPa Watts David [facility] ..840.114 350.1.13.10 4.2.7.2.686 [id number] [facility] 2021-06-12 07:39:00 2021-06-13 14:00:00 Outpatient X CRISS LEYVA [facility] [id number] [facility] 2021-06-12 07:39:00 2021-06-13 14:00:00 Outpatient X CRISS LEYVA [facility] [id number] [facility] 2021-06-11 09:40:00 2021-06-11 09:40:00 Outpatient R [facility] [id number] [facility] 2021-06-11 09:40:00 2021-06-11 09:40:00 Outpatient R [facility] [id number] [facility] 2021-06-11 09:40:00 2021-06-11 09:40:00 Outpatient R [facility] [id number] [facility] 2021-06-11 09:40:00 2021-06-11 09:40:00 Outpatient R [facility] [id number] [facility] 2021-06-11 09:40:00 2021-06-11 09:40:00 Outpatient R [facility] [id number] [facility] 2021-06-11 09:40:00 2021-06-11 09:40:00 Outpatient R [facility] [id number] [facility] 2021-06-11 00:00:00 2021-06-11 00:00:00 Transition of Care Yvonne Fairbanks [place] ..840.114 350.1.13.10 4.2.7.2.686 [id number] [facility] 2021-06-11 00:00:00 2021-06-11 00:00:00 Telephone Kim Jones [facility] ..840.114 350.1.13.10 4.2.7.2.686 [id number] [facility] 2021-06-10 10:45:00 2021-06-10 15:00:00 Emergency X MARY REYNAGA [facility] [id number] [facility] 2021-06-10 10:45:00 2021-06-10 15:00:00 Emergency Mary Reynaga [facility] 1.2.840.114 350.1.13.10 4.2.7.2.686 [id number] [facility] 2021-06-10 10:45:00 2021-06-10 15:00:00 Emergency X MARY REYNAGA [facility] [id number] [facility] 2021-06-10 00:00:00 2021-06-10 00:00:00 Telephone [facility] 1.2.840.114 350.1.13.10 4.2.7.2.686 [id number] [facility] 2021-06-10 00:00:00 2021-06-10 00:00:00 Telephone [facility] 1.2.840.114 350.1.13.10 4.2.7.2.686 [id number] [facility] 2021-06-10 00:00:00 2021-06-10 00:00:00 Telephone Kim Jones [facility] 1.2.840.114 350.1.13.10 4.2.7.2.686 [id number] [facility] 2021-06-07 23:27:00 2021-06-09 13:00:00 Outpatient X MULUGETA [facility] [id number] [facility] 2021-06-07 23:27:00 2021-06-09 13:00:00 Outpatient X [facility] [id number] [facility] 2021-06-07 23:27:00 2021-06-09 13:00:00 Outpatient X RATRA, [facility] [id number] [facility] 2021-06-07 23:27:00 2021-06-09 13:00:00 Outpatient X RATRA, [facility] [id number] [facility] 2021-06-07 23:27:00 2021-06-09 13:00:00 Outpatient X RATRA, [facility] [id number] [facility] 2021-06-07 23:27:00 2021-06-09 13:00:00 Outpatient X RATRA, [facility] [id number] [facility] 2021-06-07 23:27:00 2021-06-09 13:00:00 Outpatient X RATRA, [facility] [id number] [facility] 2021-06-07 23:27:00 2021-06-09 13:00:00 Outpatient X RATRA, [facility] [id number] [facility] 2021-06-07 23:27:00 2021-06-09 13:00:00 Outpatient X RATRA, [facility] [id number] [facility] 2021-06-07 23:27:00 2021-06-09 13:00:00 Outpatient X RATRA, [facility] [id number] [facility] 2021-06-07 23:27:00 2021-06-09 13:00:00 Emergency Watts, Pia Mulugeta, [facility] 1.2.840.114 350.1.13.10 4.2.7.2.686 [id number] [facility] 2021-06-07 23:27:00 2021-06-09 13:00:00 Outpatient X RATRA, [facility] [id number] [facility] 2021-06-07 23:27:00 2021-06-09 13:00:00 Outpatient X RATRA, OREN [facility] [id number] [facility] 2021-06-07 23:27:00 2021-06-07 23:27:00 Outpatient X MULUGETA [facility] [id number] [facility] 2021-06-07 15:40:00 2021-06-07 16:38:47 Outpatient R JONESDILLONKIM [facility] [id number] [facility] 2021-06-07 15:40:00 2021-06-07 16:38:47 [facility] [id number] [facility] 2021-06-07 14:43:51 2021-06-07 16:38:47 Office Visit Kim Jones [facility] 1.2.840.114 350.1.13.10 4.2.7.2.686 [id number] [facility] 2021-06-07 15:40:00 2021-06-07 15:40:00 Outpatient R JONESSHARKIM [facility] [id number] [facility] 2021-06-07 15:40:00 2021-06-07 15:40:00 Outpatient R JONESDILLONKIM [facility] [id number] [facility] 2021-06-06 00:00:00 2021-06-06 00:00:00 Telephone Kim Jones [facility] 1.2.840.114 350.1.13.10 4.2.7.2.686 [id number] [facility] 2021-06-06 00:00:00 2021-06-06 00:00:00 Patient Outreach Shahnaz Ulloa [facility] 1.2.840.114 350.1.13.10 4.2.7.2.686 [id number] [facility] 2021-06-06 00:00:00 2021-06-06 00:00:00 Orders Only Doctor Unassigned, [place] [facility] 1.840.114 350.1.13.10 4.2.7.2.686 [id number] [facility] 2021-06-04 15:02:35 2021-06-04 15:25:05 Office Visit Juan [facility]iegos [facility] 1..840.114 350.1.13.10 4.2.7.2.686 [id number] [facility] 2021-06-04 15:00:00 2021-06-04 15:25:05 Outpatient JUAN HARRISON [facility] [id number] [facility] 2021-06-04 15:00:00 2021-06-04 15:25:05 Outpatient JUAN HARRISON [facility] [id number] [facility] 2021-06-04 15:00:00 2021-06-04 15:25:05 Outpatient JUAN HARRISON [facility] [id number] [facility] 2021-06-04 15:00:00 2021-06-04 15:25:05 Outpatient JUAN HARRISON [facility] [id number] [facility] 2021-06-04 15:00:00 2021-06-04 15:25:05 Outpatient R JUAN MAZARIEGOS [facility] [id number] [facility] 2021-06-04 15:00:00 2021-06-04 15:25:05 Outpatient JUAN HARRISON [facility] [id number] [facility] 2021-06-04 15:00:00 2021-06-04 15:25:05 Outpatient JUAN HARRISON [facility] [id number] [facility] 2021-06-04 15:00:00 2021-06-04 15:25:05 Outpatient R NICOLÁS HAASJUAN Ordaz [facility] [id number] [facility] 2021-06-04 15:00:00 2021-06-04 15:25:05 Outpatient R NICOLÁS MAJUAN [facility] [id number] [facility] 2021-06-04 15:00:00 2021-06-04 15:25:05 Outpatient R NICOLÁS MAJUAN [facility] [id number] [facility] 2021-06-04 15:00:00 2021-06-04 15:25:05 Outpatient R NICOLÁS MAJUAN [facility] [id number] [facility] 2021-06-04 15:00:00 2021-06-04 15:25:05 Outpatient R NICOLÁS MAJUAN [facility] [id number] [facility] 2021-06-04 15:00:00 2021-06-04 15:25:05 Outpatient Paul MAJUAN [facility] [id number] [facility] 2021-06-04 15:00:00 2021-06-04 15:25:05 Outpatient R NICOLÁS MAJUAN [facility] [id number] [facility] 2021-06-04 15:00:00 2021-06-04 15:25:05 Outpatient R NICOLÁS MAJUAN [facility] [id number] [facility] 2021-06-04 15:00:00 2021-06-04 15:25:05 Outpatient R NICOLÁS MAJUAN [facility] [id number] [facility] 2021-06-04 15:00:00 2021-06-04 15:25:05 Outpatient R NICOLÁS MAJUAN [facility] [id number] [facility] 2021-06-04 15:00:00 2021-06-04 15:00:00 Outpatient JUAN HARRISON [facility] [id number] [facility] 2021-06-04 15:00:00 2021-06-04 15:00:00 Outpatient JUAN HARRISON [facility] [id number] [facility] 2021-06-03 00:00:00 2021-06-03 00:00:00 Transition of Care Seth Page NOObinna [facility] 1.2.840.114 350.1.13.10 4.2.7.2.686 [id number] [facility] 2021-05-30 12:12:00 2021-05-31 11:25:00 Outpatient X BJ WEISS [facility] [id number] [facility] 2021-05-30 12:12:00 2021-05-31 11:25:00 Outpatient X BJ WEISS [facility] [id number] [facility] 2021-05-30 12:12:00 2021-05-31 11:25:00 Emergency Michelle Miranda Bj Weiss [facility] 1.2.840.114 350.1.13.10 4.2.7.2.686 [id number] [facility] 2021-05-30 12:12:00 2021-05-31 11:25:00 Outpatient X BJ WEISS [facility] [id number] [facility] 2021-05-30 12:12:00 2021-05-31 11:25:00 Outpatient X BJ WEISS [facility] [id number] [facility] 2021-05-30 10:00:00 2021-05-30 10:00:00 Outpatient JUAN HARRISON [facility] [id number] [facility] 2021-05-30 10:00:00 2021-05-30 10:00:00 Outpatient Paul MAJUAN [facility] [id number] [facility] 2021-05-30 10:00:00 2021-05-30 10:00:00 Outpatient Paul HAASJUAN Ordaz [facility] [id number] [facility] 2021-05-30 10:00:00 2021-05-30 10:00:00 Outpatient Paul MAJUAN [facility] [id number] [facility] 2021-05-30 10:00:00 2021-05-30 10:00:00 Outpatient Paul MA JUAN [facility] [id number] [facility] 2021-05-30 10:00:00 2021-05-30 10:00:00 Outpatient Paul MA JUAN [facility] [id number] [facility] 2021-05-30 10:00:00 2021-05-30 10:00:00 Outpatient Paul MAJUAN [facility] [id number] [facility] 2021-05-30 10:00:00 2021-05-30 10:00:00 Outpatient Paul MAJUAN [facility] [id number] [facility] 2021-05-30 10:00:00 2021-05-30 10:00:00 Outpatient Paul MA JUAN [facility] [id number] [facility] 2021-05-30 10:00:00 2021-05-30 10:00:00 Outpatient JUAN HARRISON [facility] [id number] [facility] 2021-05-29 00:00:00 2021-05-29 00:00:00 Telephone Juan Mazariegos [facility] Office [facility] 1.2.840.114 350.1.13.10 4.2.7.2.686 [id number] [facility] 2021-05-29 00:00:00 2021-05-29 00:00:00 Orders Only Doctor Unassigned, [place] [facility] 1.2.840.114 350.1.13.10 4.2.7.2.686 [id number] [facility] 2021-05-28 10:27:21 2021-05-28 13:13:24 [facility] 1..840.114 350.1.13.10 4.2.7.2.686 [id number] [facility] 2021-05-28 10:20:00 2021-05-28 13:13:24 Outpatient R KIM JONES [facility] [id number] [facility] 2021-05-28 10:20:00 2021-05-28 13:13:24 Outpatient R KIM JONES [facility] [id number] [facility] 2021-05-28 10:20:00 2021-05-28 13:13:24 Outpatient R KIM JONES [facility] [id number] [facility] 2021-05-28 10:20:00 2021-05-28 13:13:24 Outpatient R KIM JONES [facility] [id number] [facility] 2021-05-28 10:20:00 2021-05-28 13:13:24 Outpatient R KIM JONES [facility] [id number] [facility] 2021-05-28 10:20:00 2021-05-28 10:20:00 Outpatient R KIM JONES [facility] [id number] [facility] 2021-05-28 00:00:00 2021-05-28 00:00:00 [facility] [id number] [facility] 2021-05-28 00:00:00 2021-05-28 00:00:00 Refill Kim Jones [facility] [id number] [id number] [facility] 2021-05-27 00:00:00 2021-05-27 00:00:00 Transition of Care Page Seth Chikaobinna Silvia Marx [id number] [facility] 2021-05-22 13:49:00 2021-05-24 15:38:00 Inpatient X JUAN MAZARIEGOS [facility] [id number] [facility] 2021-05-22 13:49:00 2021-05-24 15:38:00 Inpatient X JUAN MAZARIEGOS [facility] [id number] [facility] 2021-05-22 13:49:00 2021-05-24 15:38:00 Inpatient X JUAN MAZARIEGOS [facility] [id number] [facility] 2021-05-22 13:49:00 2021-05-24 15:38:00 Inpatient X JUAN MAZARIEGOS [facility] [id number] [facility] 2021-05-22 13:49:00 2021-05-24 15:38:00 Inpatient X JUAN MAZARIEGOS [facility] [id number] [facility] 2021-05-22 13:49:00 2021-05-24 15:38:00 Inpatient X NICOLÁS HAASJUAN Ordaz [facility] [id number] [facility] 2021-05-22 13:49:00 2021-05-24 15:38:00 Hospital Encounter Sherrie Taylor [facility] [id number] [id number] [id number] [facility] 2021-05-22 13:49:00 2021-05-24 15:38:00 Inpatient X NICOLÁS HAASJUAN Ordaz [facility] [id number] [facility] 2021-05-22 13:49:00 2021-05-24 15:38:00 Inpatient X NICOLÁS HAASJUAN Ordaz [facility] [id number] [facility] 2021-05-22 13:49:00 2021-05-24 15:38:00 Inpatient X NICOLÁS HAASJUAN Ordaz [facility] [id number] [facility] 2021-05-22 13:49:00 2021-05-24 15:38:00 Inpatient X NICOLÁS HAASJUAN Ordaz [facility] [id number] [facility] 2021-05-23 10:00:00 2021-05-23 10:00:00 Outpatient R NICOLÁS MA JUAN [facility] [id number] [facility] 2021-05-23 10:00:00 2021-05-23 10:00:00 Outpatient R NICOLÁS MA JUAN [facility] [id number] [facility] 2021-05-23 10:00:00 2021-05-23 10:00:00 Outpatient R NICOLÁS MA JUAN [facility] [id number] [facility] 2021-05-23 10:00:00 2021-05-23 10:00:00 Outpatient R JUAN MAZARIEGOS [facility] [id number] [facility] 2021-05-23 10:00:00 2021-05-23 10:00:00 Outpatient JUAN HARRISON [facility] [id number] [facility] 2021-05-23 10:00:00 2021-05-23 10:00:00 Outpatient JUAN HARRISON [facility] [id number] [facility] 2021-05-23 10:00:00 2021-05-23 10:00:00 Outpatient JUAN HARRISON [facility] [id number] [facility] 2021-05-23 10:00:00 2021-05-23 10:00:00 Outpatient JUAN HARRISON [facility] [id number] [facility] 2021-05-23 10:00:00 2021-05-23 10:00:00 Outpatient JUAN HARRISON [facility] [id number] [facility] 2021-05-23 10:00:00 2021-05-23 10:00:00 Outpatient JUAN HARRISON [facility] [id number] [facility] 2021-05-23 00:00:00 2021-05-23 00:00:00 Telephone [facility] 1.2.840.114 350.1.13.10 4.2.7.2.686 [id number] [facility] 2021-05-21 13:30:00 2021-05-21 13:54:00 Outpatient Paul CAMILLEASHOKEDINSON FRANCESCAJUAN WHALEY [facility] [id number] [facility] 2021-05-21 13:30:00 2021-05-21 13:54:00 Outpatient Paul CAMILLESYDNEYEVELIO FRANCESCAJUAN WHALEY [facility] [id number] [facility] 2021-05-21 13:30:00 2021-05-21 13:54:00 Outpatient R JUAN MAZARIEGOS [facility] [id number] [facility] 2021-05-21 13:30:00 2021-05-21 13:54:00 Outpatient R JUAN MAZARIEGOS [facility] [id number] [facility] 2021-05-21 13:30:00 2021-05-21 13:54:00 Outpatient R NICOLÁS FRANCESCAJUAN WHALEY [facility] [id number] [facility] 2021-05-21 13:30:00 2021-05-21 13:54:00 Outpatient R NICOLÁS FRANCESCAJUAN WHALEY [facility] [id number] [facility] 2021-05-21 13:30:00 2021-05-21 13:54:00 Outpatient R NICOLÁS FRANCESCAJUAN WHALEY [facility] [id number] [facility] 2021-05-21 13:30:00 2021-05-21 13:54:00 Outpatient R JUAN MAZARIEGOS [facility] [id number] [facility] 2021-05-21 13:30:00 2021-05-21 13:54:00 Outpatient R JUAN MAZARIEGOS [facility] [id number] [facility] 2021-05-21 13:30:00 2021-05-21 13:54:00 Outpatient R NICOLÁS FRANCESCAJUAN WHALEY [facility] [id number] [facility] 2021-05-21 13:30:00 2021-05-21 13:54:00 Outpatient R NICOLÁS FRANCESCAJUAN WHALEY [facility] [id number] [facility] 2021-05-21 13:30:00 2021-05-21 13:54:00 Outpatient R CAMILLEASHOKEDINSON FRANCESCAJUAN WHALEY [facility] [id number] [facility] 2021-05-21 13:30:00 2021-05-21 13:54:00 Outpatient R JUAN MAZARIEGOS [facility] [id number] [facility] 2021-05-21 13:30:00 2021-05-21 13:54:00 Outpatient R JUAN MAZARIEGOS [facility] [id number] [facility] 2021-05-21 13:30:00 2021-05-21 13:54:00 Outpatient R JUAN MAZARIEGOS [facility] [id number] [facility] 2021-05-21 12:29:51 2021-05-21 13:54:00 Office Visit Juan [facility]iegos [facility] 1..840.114 350.1.13.10 4.2.7.2.686 [id number] [facility] 2021-05-21 13:30:00 2021-05-21 13:30:00 Outpatient R JUAN MAZARIEGOS [facility] [id number] [facility] 2021-05-21 00:00:00 2021-05-21 00:00:00 Transition of Care Adilene Petersen 1.2.840.114 350.1.13.10 4.2.7.2.686 [id number] [facility] 2021-05-17 13:49:00 2021-05-19 17:56:00 Emergency Jairo Jordan [facility] 1.2.840.114 350.1.13.10 4.2.7.2.686 [id number] [facility] 2021-05-17 13:49:00 2021-05-19 17:56:00 Outpatient CRISS ALATORRE [facility] JOANA [id number] [facility] 2021-05-17 13:49:00 2021-05-19 17:56:00 Outpatient CRISS ALATORRE [facility] [id number] [facility] 2021-05-16 10:00:00 2021-05-16 10:00:00 Outpatient Paul DELYe FRANCESCAJUAN WHALEY [facility] [id number] [facility] 2021-05-16 10:00:00 2021-05-16 10:00:00 Outpatient Paul MAJUAN [facility] [id number] [facility] 2021-05-16 10:00:00 2021-05-16 10:00:00 Outpatient Paul MAJUAN [facility] [id number] [facility] 2021-05-16 10:00:00 2021-05-16 10:00:00 Outpatient Paul MAJUAN [facility] [id number] [facility] 2021-05-16 10:00:00 2021-05-16 10:00:00 Outpatient Paul MAJUAN [facility] [id number] [facility] 2021-05-16 10:00:00 2021-05-16 10:00:00 Outpatient Paul MAJUAN [facility] [id number] [facility] 2021-05-16 10:00:00 2021-05-16 10:00:00 Outpatient Paul MAJUAN [facility] [id number] [facility] 2021-05-16 10:00:00 2021-05-16 10:00:00 Outpatient Paul MAJUAN [facility] [id number] [facility] 2021-05-16 10:00:00 2021-05-16 10:00:00 Outpatient Paul MAJUAN [facility] [id number] [facility] 2021-05-16 10:00:00 2021-05-16 10:00:00 Outpatient JUAN HARRISON [facility] [id number] [facility] 2021-05-16 10:00:00 2021-05-16 10:00:00 Outpatient JUAN HARRISON [facility] [id number] [facility] 2021-05-16 10:00:00 2021-05-16 10:00:00 Outpatient JUAN HARRISON [facility] [id number] [facility] 2021-05-16 10:00:00 2021-05-16 10:00:00 Outpatient JUAN HARRISON [facility] [id number] [facility] 2021-05-16 10:00:00 2021-05-16 10:00:00 Outpatient JUAN HARRISON [facility] [id number] [facility] 2021-05-14 14:30:00 2021-05-14 14:30:00 Outpatient JUAN HARRISON [facility] [id number] [facility] 2021-05-13 00:00:00 2021-05-13 00:00:00 Telephone Kim Jones [facility] 1.2840.114 350.1.13.10 4.2.7.2.686 [id number] [facility] 2021-05-13 00:00:00 2021-05-13 00:00:00 Transition of Care Page Seth 1.2840.114 350.1.13.10 4.2.7.2.686 [id number] [facility] 2021-05-13 00:00:00 2021-05-13 00:00:00 Telephone Kim Jones [facility] 1.2.840.114 350.1.13.10 4.2.7.2.686 [id number] [facility] 2021-05-07 09:37:00 2021-05-10 18:14:00 Hospital Encounter Pia Watts MichaelshanelOh [facility] 1.2.840.114 350.1.13.10 4.2.7.2.686 [id number] [facility] 2021-05-07 09:37:00 2021-05-10 18:14:00 Inpatient X OH ESPINOZA [facility] [id number] [facility] 2021-05-07 09:37:00 2021-05-10 18:14:00 Inpatient X OH ESPINOZA [facility] [id number] [facility] 2021-05-07 09:37:00 2021-05-10 18:14:00 Inpatient X PANKAJANTHONYSHANEL OH [facility] JOANA [id number] [facility] 2021-05-07 09:37:00 2021-05-10 18:14:00 Inpatient X OH ESPINOZA [facility] [id number] [facility] 2021-05-09 10:30:00 2021-05-09 10:30:00 Outpatient JUAN HARRISON [facility] [id number] [facility] 2021-05-09 10:30:00 2021-05-09 10:30:00 Outpatient JUAN HARRISON [facility] [id number] [facility] 2021-05-09 10:30:00 2021-05-09 10:30:00 Outpatient JUAN HARRISON [facility] [id number] [facility] 2021-05-09 10:30:00 2021-05-09 10:30:00 Outpatient JUAN HARRISON [facility] [id number] [facility] 2021-05-09 10:30:00 2021-05-09 10:30:00 Outpatient Paul HAASJUAN Ordaz [facility] [id number] [facility] 2021-05-09 10:30:00 2021-05-09 10:30:00 Outpatient R NICOLÁS FRANCESCA, JUAN [facility] [id number] [facility] 2021-05-09 10:30:00 2021-05-09 10:30:00 Outpatient R LAWANDAEVELIO FRANCESCA, JUAN [facility] [id number] [facility] 2021-05-09 10:30:00 2021-05-09 10:30:00 Outpatient R DELYe FRANCESCA, JUAN [facility] [id number] [facility] 2021-05-09 10:30:00 2021-05-09 10:30:00 Outpatient R NICOLÁS FRANCESCA, JOSE [facility] [id number] [facility] 2021-05-09 10:30:00 2021-05-09 10:30:00 Outpatient R NICOLÁS FRANCESCA, JOSE [facility] [id number] [facility] 2021-05-07 14:30:00 2021-05-07 14:30:00 Outpatient R LAWANDAEVELIO FRANCESCA, JUAN [facility] [id number] [facility] 2021-05-07 00:00:00 2021-05-07 00:00:00 Telephone Juan Mazariegos [facility] 1..840.114 350.1.13.10 4.2.7.2.686 [id number] [facility] 2021-05-07 00:00:00 2021-05-07 00:00:00 Transition of Page Garcia 1..840.114 350.1.13.10 4.2.7.2.686 [id number] [facility] 2021-05-02 12:01:00 2021-05-05 15:40:00 Hospital Encounter Debby Brown Jelani [facility] 1.2.840.114 350.1.13.10 4.2.7.2.686 [id number] [facility] 2021-05-02 10:05:35 2021-05-02 10:20:35 Nurse Visit 1, Adc Infusion Nurse Juan Mazariegos [facility] 1.2.840.114 350.1.13.10 4.2.7.2.686 [id number] [facility] 2021-05-02 10:00:00 2021-05-02 10:00:00 Outpatient JUAN HARRISON [facility] [id number] [facility] 2021-05-02 10:00:00 2021-05-02 10:00:00 Outpatient JUAN HARRISON [facility] [id number] [facility] 2021-05-02 10:00:00 2021-05-02 10:00:00 Outpatient JUAN HARRISON [facility] [id number] [facility] 2021-05-02 10:00:00 2021-05-02 10:00:00 Outpatient JUAN HARRISON [facility] [id number] [facility] 2021-05-02 10:00:00 2021-05-02 10:00:00 Outpatient JUAN HARRISON [facility] [id number] [facility] 2021-05-02 10:00:00 2021-05-02 10:00:00 Outpatient JUAN HARRISON [facility] [id number] [facility] 2021-05-02 10:00:00 2021-05-02 10:00:00 Outpatient JUAN HARRISON [facility] [id number] [facility] 2021-05-02 10:00:00 2021-05-02 10:00:00 Outpatient Paul NICOLÁS HAASJUNA Ordaz [facility] [id number] [facility] 2021-05-02 10:00:00 2021-05-02 10:00:00 Outpatient Paul NICOLÁS MAJUAN [facility] [id number] [facility] 2021-05-02 10:00:00 2021-05-02 10:00:00 Outpatient Paul NICOLÁS HAASJUAN Ordaz [facility] [id number] [facility] 2021-05-02 10:00:00 2021-05-02 10:00:00 Outpatient Paul NICOLÁS HAASJUAN Ordaz [facility] [id number] [facility] 2021-05-02 00:00:00 2021-05-02 00:00:00 Telephone Juan Mazariegos [facility] 1.2.840.114 350.1.13.10 4.2.7.2.686 [id number] [facility] 2021-04-26 14:00:00 2021-04-26 14:53:04 Outpatient Paul MAJUAN [facility] [id number] [facility] 2021-04-26 14:00:00 2021-04-26 14:53:04 Outpatient Paul MA JUAN [facility] [id number] [facility] 2021-04-26 14:00:00 2021-04-26 14:53:04 Outpatient Paul MA JUAN [facility] [id number] [facility] 2021-04-26 14:00:00 2021-04-26 14:53:04 Outpatient Paul MA JUAN [facility] [id number] [facility] 2021-04-26 14:00:00 2021-04-26 14:53:04 Outpatient R NICOLÁS HAASJUAN Ordaz [facility] [id number] [facility] 2021-04-26 14:00:00 2021-04-26 14:53:04 Outpatient Paul LAWANDAEVELIO FRANCESCA, JOSE [facility] [id number] [facility] 2021-04-26 14:00:00 2021-04-26 14:00:00 Outpatient R DELYe FRANCESCA, JOSE [facility] [id number] [facility] 2021-04-26 13:07:20 2021-04-26 13:27:20 Nurse Visit Nurse, Juan Roque [facility] 1.840.114 350.1.13.10 4.2.7.2.686 [id number] [facility] 2021-04-24 00:00:00 2021-04-24 00:00:00 Telephone Maria E Fischer [facility] 1..840.114 350.1.13.10 4.2.7.2.686 [id number] [facility] 2021-04-23 14:30:00 2021-04-23 14:56:56 Outpatient R JUAN MAZARIEGOS [facility] [id number] [facility] 2021-04-23 14:30:00 2021-04-23 14:56:56 Outpatient R JUAN MAZARIEGOS [facility] [id number] [facility] 2021-04-23 14:27:07 2021-04-23 14:56:56 Office Visit Juan [facility]azariegos [facility] 1.840.114 350.1.13.10 4.2.7.2.686 [id number] [facility] 2021-04-23 14:30:00 2021-04-23 14:30:00 Outpatient R JUAN MAZARIEGOS [facility] [id number] [facility] 2021-04-22 10:58:00 2021-04-22 14:18:00 Emergency Mary Reynaga [facility] 1.840.114 350.1.13.10 4.2.7.2.686 [id number] [facility] 2021-04-22 10:58:00 2021-04-22 14:18:00 Emergency X MARY REYNAGA [facility] [id number] [facility] 2021-04-22 10:58:00 2021-04-22 14:18:00 Emergency X JUHI [facility] E[facility] [id number] [facility] 2021-04-22 00:00:00 2021-04-22 00:00:00 Telephone Juan Mazariegos [facility] 1.0.114 350.1.13.10 4.2.7.2.686 [id number] [facility] 2021-04-22 00:00:00 2021-04-22 00:00:00 [facility] 1.840.114 350.1.13.10 4.2.7.2.686 [id number] [facility] 2021-04-20 00:00:00 2021-04-20 00:00:00 Orders Only Doctor Unassigned, [place] [facility] 1.2840.114 350.1.13.10 4.2.7.2.686 [id number] [facility] 2021-04-18 00:00:00 2021-04-18 00:00:00 Orders Only Doctor Unassigned, [place] [facility] 1.2.840.114 350.1.13.10 4.2.7.2.686 [id number] [facility] 2021-04-17 00:00:00 2021-04-17 00:00:00 Telephone Juan Mazariegso [facility] 1..114 350.1.13.10 4.2.7.2.686 [id number] [facility] 2021-04-16 16:30:00 2021-04-16 16:30:00 Outpatient R DELYe FRANCESCA JUAN [facility] [id number] [facility] 2021-04-16 16:30:00 2021-04-16 16:30:00 Outpatient R DELYe FRANCESCA JUAN [facility] [id number] [facility] 2021-04-16 16:30:00 2021-04-16 16:30:00 Outpatient R LAWANDAEVELIO FRANCESCA, JOSE [facility] [id number] [facility] 2021-04-16 16:30:00 2021-04-16 16:30:00 Outpatient R DELYe FRANCESCA JUAN [facility] [id number] [facility] 2021-04-16 16:30:00 2021-04-16 16:30:00 Outpatient R JUAN MAZARIEGOS [facility] [id number] [facility] 2021-04-16 00:00:00 2021-04-16 00:00:00 Telephone Juan Mazariegos [facility] 1.114 350.1.13.10 4.2.7.2.686 [id number] [facility] 2021-04-15 00:00:00 2021-04-15 00:00:00 Orders Only Doctor Unassigned, [place] [facility] 1..114 350.1.13.10 4.2.7.2.686 [id number] [facility] 2021-04-12 00:00:00 2021-04-12 00:00:00 Telephone JonesKim daley [facility] 1.2.840.114 350.1.13.10 4.2.7.2.686 [id number] [facility] 2021-04-12 00:00:00 2021-04-12 00:00:00 Telephone JonesKim estrada [facility] nal Building 1.2.840.114 350.1.13.10 4.2.7.2.686 [id number] [facility] 2021-04-11 00:00:00 2021-04-11 00:00:00 Telephone Kim Jones [facility] 1.2.840.114 350.1.13.10 4.2.7.2.686 [id number] [facility] 2021-04-11 00:00:00 2021-04-11 00:00:00 Juan Collado [facility] 1.2.840.114 350.1.13.10 4.2.7.2.686 [id number] [facility] 2021-04-11 00:00:00 2021-04-11 00:00:00 Telephone Kim Jones [facility] 1.2.840.114 350.1.13.10 4.2.7.2.686 [id number] [facility] 2021-04-09 14:30:00 2021-04-09 14:54:06 Outpatient R JUAN MAZARIEGOS [facility] [id number] [facility] 2021-04-09 14:30:00 2021-04-09 14:54:06 Outpatient Paul MAJUAN [facility] [id number] [facility] 2021-04-09 14:30:00 2021-04-09 14:54:06 Outpatient Paul HAASJUAN Ordaz [facility] [id number] [facility] 2021-04-09 14:30:00 2021-04-09 14:54:06 Outpatient R NICOLÁS MAJUAN [facility] [id number] [facility] 2021-04-09 14:30:00 2021-04-09 14:54:06 Outpatient R NICOLÁS MAJUAN [facility] [id number] [facility] 2021-04-09 14:30:00 2021-04-09 14:54:06 Outpatient Paul MAJUAN [facility] [id number] [facility] 2021-04-09 14:30:00 2021-04-09 14:54:06 Outpatient R NICOLÁS MAJUAN [facility] [id number] [facility] 2021-04-09 14:30:00 2021-04-09 14:54:06 Outpatient Paul MAJUAN [facility] [id number] [facility] 2021-04-09 14:30:00 2021-04-09 14:54:06 Outpatient R NICOLÁS MAJUAN [facility] [id number] [facility] 2021-04-09 14:30:00 2021-04-09 14:54:06 Outpatient Paul MAJUAN [facility] [id number] [facility] 2021-04-09 13:56:45 2021-04-09 14:54:06 Office Visit Juan [facility]iegos [facility] 1.2.840.114 350.1.13.10 4.2.7.2.686 [id number] [facility] 2021-04-09 14:30:00 2021-04-09 14:30:00 Outpatient R JUAN MAZARIEGOS [facility] [id number] [facility] 2021-04-09 00:00:00 2021-04-09 00:00:00 Telephone Juan Mazariegos [facility] 1.0.114 350.1.13.10 4.2.7.2.686 [id number] [facility] 2021-04-09 00:00:00 2021-04-09 00:00:00 Telephone Juan Mazariegos [facility] 1..114 350.1.13.10 4.2.7.2.686 [id number] [facility] 2021-04-05 00:00:00 2021-04-05 00:00:00 Transition of Care Page Seth 1..114 350.1.13.10 4.2.7.2.686 [id number] [facility] 2021-03-11 20:29:00 2021-04-04 18:25:00 Inpatient X JUAN MAZARIEGOS [facility] [id number] [facility] 2021-03-11 20:29:00 2021-04-04 18:25:00 Hospital Encounter Michelle Miranda Khaled F [facility], [facility] 1..114 350.1.13.10 4.2.7.2.686 [id number] [facility] 2021-03-11 20:29:00 2021-04-04 18:25:00 Inpatient X JUAN MAZARIEGOS [facility] [id number] [facility] 2021-03-11 20:29:00 2021-04-04 18:25:00 Inpatient X JUAN MAZARIEGOS [facility] [id number] [facility] 2021-03-11 20:29:00 2021-04-04 18:25:00 Inpatient X JUAN MAZARIEGOS [facility] [id number] [facility] 2021-03-11 20:29:00 2021-04-04 18:25:00 Inpatient X JUAN MAZARIEGOS [facility] [id number] [facility] 2021-03-11 20:29:00 2021-04-04 18:25:00 Inpatient X JUAN MAZARIEGOS [facility] [id number] [facility] 2021-03-11 20:29:00 2021-04-04 18:25:00 Inpatient X JUAN MAZARIEGOS [facility] [id number] [facility] 2021-04-03 10:45:00 2021-04-03 11:30:00 Surgery Fran Trinh [facility] .840.114 350.1.13.10 4.2.7.2.686 [id number] [facility] 2021-04-03 00:00:00 2021-04-03 00:00:00 Telephone David Ladd [facility] ..840.114 350.1.13.10 4.2.7.2.686 [id number] [facility] 2021-04-02 00:00:00 2021-04-02 00:00:00 Committee Review Jackelyn Pulido [facility] ..840.114 350.1.13.10 4.2.7.2.686 [id number] [facility] 2021-04-02 00:00:00 2021-04-02 00:00:00 Letter (Out) Jackelyn Pulido [facility] [id number] 350.1.13.10 4.2.7.2.686 [id number] [facility] 2021-04-02 00:00:00 2021-04-02 00:00:00 Telephone [facility] [id number] 350.1.13.10 4.2.7.2.686 [id number] [facility] 2021-03-26 14:20:00 2021-03-26 14:20:00 Outpatient R KELLY KNOWLES [facility] [id number] [facility] 2021-03-21 12:26:00 2021-03-21 23:59:00 Hospital Encounter Hallie Greenberg 1.2.840.1 [id number] [facility] 2021-03-21 00:00:00 2021-03-21 00:00:00 Telephone Jackelyn Pulido 1.2.840.1 01422.1.1 3.104.2.7 .3.015718 .8 [id number] [facility] 2021-03-21 00:00:00 2021-03-21 00:00:00 Travel 1.2.840.1 78941.1.1 3.104.2.7 .3.315339 .8 1.2.840.114 350.1.13.10 4.2.7.3.698 084.8 [id number] [facility] 2021-03-12 13:30:00 2021-03-12 13:30:00 Outpatient R [facility] [id number] [facility] 2021-03-11 00:00:00 2021-03-11 00:00:00 Travel 1.2.840.1 37478.1.1 3.104.2.7 .3.502543 .8 1.2.840.114 350.1.13.10 4.2.7.3.698 084.8 [id number] [facility] 2021-03-04 07:30:00 2021-03-04 07:30:00 Outpatient ADRIANNA LUCAS [facility] [id number] [facility] 2021-03-04 07:30:00 2021-03-04 07:30:00 Outpatient ADRIANNA LUCAS [facility] [id number] [facility] 2021-03-04 07:30:00 2021-03-04 07:30:00 Outpatient ADRIANNA LUCAS [facility] [id number] [facility] 2021-03-04 07:30:00 2021-03-04 07:30:00 Outpatient ADRIANNA LUCAS [facility] [id number] [facility] 2021-03-04 07:30:00 2021-03-04 07:30:00 Outpatient ADRIANNA LUCAS [facility] [id number] [facility] 2021-03-04 07:30:00 2021-03-04 07:30:00 Outpatient ADRIANNA LUCAS [facility] [id number] [facility] 2021-02-28 16:19:00 2021-03-01 15:10:00 Inpatient EM Stephan Juan HCAPM INTE.02 [id number] 83 [facility] 2021-02-28 08:44:00 2021-02-28 08:44:00 Outpatient Stephan Juan HCACL LABO [id number] 34 [facility] 2021-02-27 00:00:00 2021-02-27 00:00:00 Transition of Care Page Seth 1.2.840.114 350.1.13.10 4.2.7.2.686 [id number] 2021-02-27 00:00:00 2021-02-27 00:00:00 Transition of Care Page Seth 1.2.840.1 13954.1.1 3.104.2.7 .3.788238 .8 [id number] [facility] 2021-02-26 00:00:00 2021-02-26 00:00:00 Transition of Page Garcia 1.2.840.114 350.1.13.10 4.2.7.2.686 [id number] 2021-02-26 00:00:00 2021-02-26 00:00:00 Transition of Page Garcia 1.2.840.1 86036.1.1 3.104.2.7 .3.453654 .8 [id number] [facility] 2021-02-25 00:00:00 2021-02-25 00:00:00 Ayush Hill [facility] 1.2.840.114 350.1.13.10 4.2.7.2.686 [id number] 2021-02-25 00:00:00 2021-02-25 00:00:00 Ayush Hill 1.2.840.1 28454.1.1 3.104.2.7 .3.316668 .8 [id number] [facility] 2021-02-22 20:27:00 2021-02-24 15:41:00 Emergency Doris Amaral [facility] 1.2.840.114 350.1.13.10 4.2.7.2.686 [id number] 2021-02-22 20:27:00 2021-02-24 15:41:00 Emergency Doris Amaral [facility] 1.2.840.1 91342.1.1 3.104.2.7 .3.934893 .8 [id number] [facility] 2021-02-22 20:27:00 2021-02-24 15:41:00 Outpatient X ALAN AMARALNICOLASABEATRIZ [facility] [id number] [facility] 2021-02-22 14:50:00 2021-02-22 14:50:00 Outpatient R ADRIANNA HEATH [facility] [id number] [facility] 2021-02-22 00:00:00 2021-02-22 00:00:00 Travel 1.2.840.1 03021.1.1 3.104.2.7 .3.697424 .8 1.2.840.114 350.1.13.10 4.2.7.3.698 084.8 [id number] [facility] 2021-02-21 12:41:00 2021-02-21 15:15:00 Emergency Mary Reynaga 1.2.840.1 06656.1.1 3.104.2.7 .3.278974 .8 [id number] [facility] 2021-02-21 12:41:00 2021-02-21 15:15:00 Emergency X MARY REYNAGA [facility] [id number] [facility] 2021-02-21 00:00:00 2021-02-21 00:00:00 Travel 1.2.840.1 35852.1.1 3.104.2.7 .3.190488 .8 1.2.840.114 350.1.13.10 4.2.7.3.698 084.8 [id number] [facility] 2021-02-21 00:00:00 2021-02-21 00:00:00 Transition of Care Page Seth 1.2.840.1 79347.1.1 3.104.2.7 .3.370319 .8 [id number] [facility] 2021-02-20 00:00:00 2021-02-20 00:00:00 Transition of Care Page Seth 1.2.840.1 89840.1.1 3.104.2.7 .3.647588 .8 [id number] [facility] 2021-02-18 18:41:00 2021-02-19 16:16:00 Emergency WattsPia holbrook David 1.2.840.1 44382.1.1 3.104.2.7 .3.739806 .8 [id number] [facility] 2021-02-18 18:41:00 2021-02-19 16:16:00 Outpatient CRISS ALATORRE [facility] [id number] [facility] 2021-02-18 12:57:37 2021-02-18 18:40:00 Hospital Encounter Kim Jones 1.2.840.1 71469.1.1 3.104.2.7 .3.030314 .8 [id number] [facility] 2021-02-18 00:00:00 2021-02-18 00:00:00 Outpatient KIM HU [facility] [id number] [facility] 2021-02-18 00:00:00 2021-02-18 00:00:00 Travel 1.2.840.1 02856.1.1 3.104.2.7 .3.780133 .8 1.2.840.114 350.1.13.10 4.2.7.3.698 084.8 [id number] [facility] 2021-02-15 00:00:00 2021-02-15 00:00:00 Orders Only Doctor Unassigned, [place] 1.2.840.1 15930.1.1 3.104.2.7 .3.892286 .8 [id number] [facility] 2021-02-13 00:00:00 2021-02-13 00:00:00 Patient Outreach ArtemioPitoorlin [facility] 1.2.840.114 350.1.13.10 4.2.7.2.686 [id number] 2021-02-13 00:00:00 2021-02-13 00:00:00 Patient Outreach ArtemioShahnaz Wandy 1.2.840.1 39009.1.1 3.104.2.7 .3.551819 .8 [id number] [facility] 2021-02-07 08:20:00 2021-02-07 09:47:54 Outpatient KIM HU [facility] [id number] [facility] 2021-02-07 08:08:07 2021-02-07 09:47:54 Office Visit Kim Jones 1.2.840.1 44750.1.1 3.104.2.7 .3.733298 .8 [id number] [facility] 2021-02-07 08:20:00 2021-02-07 08:20:00 Outpatient KIM HU [facility] [id number] [facility] 2021-02-07 00:00:00 2021-02-07 00:00:00 Orders Only Doctor Unassigned, [place] 1.2.840.1 86493.1.1 3.104.2.7 .3.442288 .8 [id number] [facility] 2021-02-07 00:00:00 2021-02-07 00:00:00 Travel 1.2.840.1 64150.1.1 3.104.2.7 .3.028064 .8 1.2.840.114 350.1.13.10 4.2.7.3.698 084.8 [id number] [facility] 2021-02-04 20:15:00 2021-02-06 16:26:00 Inpatient EM Precious Bae HCACL INTE.02 [id number] [facility] 2021-02-04 12:54:00 2021-02-04 19:20:00 Emergency EM Isac Rouse [facility] [id number] 53 [facility] 2021-02-01 00:00:00 2021-02-01 00:00:00 Telephone Kim Jones 1.2.840.1 29575.1.1 3.104.2.7 .3.953332 .8 [id number] [facility] 2021-01-23 15:00:00 2021-01-23 15:00:00 Outpatient R LADD, SENDIL [facility] [id number] [facility] 2021-01-23 15:00:00 2021-01-23 15:00:00 Outpatient R LADD, SENDIL [facility] [id number] [facility] 2021-01-23 15:00:00 2021-01-23 15:00:00 [facility] [id number] [facility] 2021-01-23 15:00:00 2021-01-23 15:00:00 Outpatient R LADD, SENDIL [facility] [id number] [facility] 2021-01-23 15:00:00 2021-01-23 15:00:00 Outpatient R LADD, SENDIL [facility] [id number] [facility] 2021-01-23 15:00:00 2021-01-23 15:00:00 Outpatient R LADD, SENDIL [facility] [id number] [facility] 2021-01-22 00:00:00 2021-01-22 00:00:00 Ayush Hill 1.2.840.1 32242.1.1 3.104.2.7 .3.226540 .8 [id number] [facility] 2021-01-18 13:54:00 2021-01-18 17:11:00 Emergency Mary Reynaga Davide 1.2.840.1 46637.1.1 3.104.2.7 .3.946626 .8 [id number] [facility] 2021-01-18 13:54:00 2021-01-18 17:11:00 Emergency X MARY REYNAGA [facility] [id number] [facility] 2021-01-18 00:00:00 2021-01-18 00:00:00 Travel 1.2.840.1 16959.1.1 3.104.2.7 .3.178127 .8 1.2.840.114 350.1.13.10 4.2.7.3.698 084.8 [id number] [facility] 2021-01-10 14:15:33 2021-01-10 14:57:15 Office Visit David Ladd 1.2.840.1 94362.1.1 3.104.2.7 .3.793953 .8 [id number] [facility] 2021-01-10 14:00:00 2021-01-10 14:57:15 Outpatient R DAVID LADD [facility] [id number] [facility] 2021-01-10 09:00:00 2021-01-10 09:00:00 Outpatient R [facility] [id number] [facility] 2021-01-10 00:00:00 2021-01-10 00:00:00 Orders Only Doctor Unassigned, [place] 1.2.840.1 93331.1.1 3.104.2.7 .3.267123 .8 [id number] [facility] 2021-01-10 00:00:00 2021-01-10 00:00:00 Travel 1.2.840.1 02936.1.1 3.104.2.7 .3.258973 .8 1.2.840.114 350.1.13.10 4.2.7.3.698 084.8 [id number] [facility] 2021-01-08 19:30:00 2021-01-08 19:30:00 Outpatient R ATANASOV, STRAHIL ATANASOV, STRAHIL [facility] [id number] [facility] 2021-01-08 19:30:00 2021-01-08 19:30:00 Outpatient R ATANASOV, STRAHIL ATANASOV, STRAHIL [facility] [id number] [facility] 2021-01-08 19:30:00 2021-01-08 19:30:00 Outpatient R ATANASOV, STRAHIL ATANASOV, STRAHIL [facility] [id number] [facility] 2021-01-08 19:30:00 2021-01-08 19:30:00 Outpatient R ATANASOV, STRAHIL ATANASOV, STRAHIL [facility] [id number] [facility] 2021-01-08 19:30:00 2021-01-08 19:30:00 Outpatient R ATANASOV, STRAHIL ATANASOV, STRAHIL [facility] [id number] [facility] 2021-01-08 19:30:00 2021-01-08 19:30:00 Outpatient R ATANASOV, STRAHIL ATANASOV, STRAHIL [facility] [id number] [facility] 2021-01-08 11:15:00 2021-01-08 11:15:00 Outpatient R [facility] [id number] [facility] 2021-01-03 15:04:00 2021-01-07 14:00:00 Inpatient Yared Cheng [facility] INTE.02 [id number] 59 [facility] 2021-01-04 11:45:00 2021-01-04 11:45:00 Outpatient R [facility] [id number] [facility] 2021-01-04 00:00:00 2021-01-04 00:00:00 Telephone Maria E Fischer 1.2.840.1 36127.1.1 3.104.2.7 .3.757026 .8 [id number] [facility] 2021-01-03 21:53:00 2021-01-03 21:53:00 Outpatient Yared Scott HCACL LABO [id number] 57 [facility] 2021-01-03 09:40:00 2021-01-03 10:43:02 Outpatient R MARIA E FISCHER [facility] [id number] [facility] 2021-01-03 09:40:00 2021-01-03 10:00:00 Telemedici ne Visit Maria E Fischer 1.2.840.1 29972.1.1 3.104.2.7 .3.165917 .8 [id number] [facility] 2021-01-03 09:40:00 2021-01-03 09:40:00 Outpatient R MARIA E FISCHER [facility] [id number] [facility] 2021-01-03 09:40:00 2021-01-03 09:40:00 Outpatient R MARIA E FICSHER [facility] [id number] [facility] 2021-01-03 00:00:00 2021-01-03 00:00:00 Telephone Kim Jones 1.2.840.1 78753.1.1 3.104.2.7 .3.633434 .8 [id number] [facility] 2021-01-02 16:20:00 2021-01-02 16:20:00 Outpatient R MARIA E FISCHER [facility] [id number] [facility] 2021-01-02 16:20:00 2021-01-02 16:20:00 Outpatient R MARIA E FISCHER [facility] [id number] [facility] 2021-01-02 16:20:00 2021-01-02 16:20:00 Outpatient R MARIA E FISCHER [facility] [id number] [facility] 2021-01-02 16:20:00 2021-01-02 16:20:00 Outpatient R MARIA E FISCHER [facility] [id number] [facility] 2021-01-02 16:20:00 2021-01-02 16:20:00 Outpatient R MARIA E FISCHER [facility] [id number] [facility] 2021-01-02 16:20:00 2021-01-02 16:20:00 Outpatient R MARIA E FISCHER [facility] [id number] [facility] 2021-01-02 00:00:00 2021-01-02 00:00:00 Orders Only Doctor Unassigned, [place] 1.2.840.1 43130.1.1 3.104.2.7 .3.684852 .8 [id number] [facility] 2021-01-01 13:47:00 2021-01-01 15:39:00 Emergency Mary Reynaga 1.2.840.1 66814.1.1 3.104.2.7 .3.599854 .8 [id number] [facility] 2021-01-01 11:30:00 2021-01-01 11:30:00 Outpatient R DAVID LADD [facility] [id number] [facility] 2021-01-01 08:41:00 2021-01-01 11:14:00 Emergency Mary Reynaga 1.2.840.1 17422.1.1 3.104.2.7 .3.568292 .8 [id number] [facility] 2021-01-01 08:00:00 2021-01-01 09:20:28 Outpatient R MILAN RAYO [facility] [id number] [facility] 2021-01-01 08:00:00 2021-01-01 09:20:28 Outpatient R MILAN RAYO [facility] [id number] [facility] 2021-01-01 08:00:00 2021-01-01 09:20:28 Outpatient R MILAN RAYO [facility] [id number] [facility] 2021-01-01 08:00:00 2021-01-01 09:20:28 Outpatient R MILAN RAYO [facility] [id number] [facility] 2021-01-01 08:00:00 2021-01-01 09:20:28 Outpatient R MILAN RAYO [facility] [id number] [facility] 2021-01-01 08:00:00 2021-01-01 09:20:28 Outpatient R MILAN RAYO [facility] [id number] [facility] 2021-01-01 07:49:24 2021-01-01 09:20:28 Office Visit Milan Rayo 1.2.840.1 18183.1.1 3.104.2.7 .3.428064 .8 [id number] [facility] 2021-01-01 00:00:00 2021-01-01 00:00:00 Telephone Milan Rayo 1.2.840.1 15842.1.1 3.104.2.7 .3.065903 .8 [id number] [facility] 2021-01-01 00:00:00 2021-01-01 00:00:00 Travel 1.2.840.1 12804.1.1 3.104.2.7 .3.432141 .8 1.2.840.114 350.1.13.10 4.2.7.3.698 084.8 [id number] [facility] 2020-12-28 14:20:00 2020-12-28 14:20:00 Outpatient AYUSH DUNAWAY HOWARD [facility] [id number] [facility] 2020-12-28 11:00:00 2020-12-28 11:18:06 Outpatient R LADD, DAVID [facility] [id number] [facility] 2020-12-28 11:00:00 2020-12-28 11:18:06 Outpatient R LADD, SENDDANE [facility] [id number] [facility] 2020-12-28 11:00:00 2020-12-28 11:18:06 Outpatient R LADD, SENDDANE [facility] [id number] [facility] 2020-12-28 11:00:00 2020-12-28 11:18:06 Outpatient R LADD, SENDDANE [facility] [id number] [facility] 2020-12-28 11:00:00 2020-12-28 11:18:06 [facility] [id number] [facility] 2020-12-28 11:00:00 2020-12-28 11:18:06 [facility] [id number] [facility] 2020-12-28 11:00:00 2020-12-28 11:18:06 Outpatient R LADD [facility] [id number] [facility] 2020-12-27 13:27:00 2020-12-27 14:19:00 Emergency X PIA WATTS COMARIANNE [facility] [id number] [facility] 2020-12-27 13:27:00 2020-12-27 14:19:00 Emergency X PIA WATTS [facility] [id number] [facility] 2020-12-27 13:27:00 2020-12-27 14:19:00 Emergency X PIA WATTS COMARIANNE [facility] [id number] [facility] 2020-12-27 13:27:00 2020-12-27 14:19:00 Emergency X PIA WATTS [facility] ERT [id number] [facility] 2020-12-27 13:27:00 2020-12-27 14:19:00 Emergency X PIA WATTS [facility] ERT [id number] [facility] 2020-12-26 13:30:00 2020-12-26 13:30:00 Outpatient R MILAN RAYO [facility] [id number] [facility] 2020-12-26 13:30:00 2020-12-26 13:30:00 Outpatient R MILAN RAYO [facility] [id number] [facility] 2020-12-26 13:30:00 2020-12-26 13:30:00 Outpatient R MILAN RAYO [facility] [id number] [facility] 2020-12-26 13:30:00 2020-12-26 13:30:00 Outpatient R MILAN RAYO [facility] [id number] [facility] 2020-12-26 13:30:00 2020-12-26 13:30:00 Outpatient R MILAN RAYO [facility] [id number] [facility] 2020-12-26 13:30:00 2020-12-26 13:30:00 Outpatient R MILAN RAYO [facility] [id number] [facility] 2020-12-26 13:30:00 2020-12-26 13:30:00 Outpatient R MILAN RAYO [facility] [id number] [facility] 2020-12-17 14:43:00 2020-12-19 13:30:00 Inpatient X THELMA GALLARDO [facility] JOANA [id number] [facility] 2020-12-18 19:30:00 2020-12-18 19:30:00 Outpatient R SUNSHINE KLEIN STRAHIL [facility] [id number] [facility] 2020-12-17 13:15:00 2020-12-17 13:15:00 Outpatient R CHUCKIE RODRÍGUEZ [facility] [id number] [facility] 2020-12-17 13:15:00 2020-12-17 13:15:00 Outpatient R CHUCKIE RODRÍGUEZ [facility] [id number] [facility] 2020-12-14 15:15:00 2020-12-14 15:15:00 Outpatient R [facility] [id number] [facility] 2020-12-14 15:15:00 2020-12-14 15:15:00 Outpatient R [facility] [id number] [facility] 2020-12-14 15:15:00 2020-12-14 15:15:00 Outpatient R [facility] [id number] [facility] 2020-12-14 15:15:00 2020-12-14 15:15:00 Outpatient R [facility] [id number] [facility] 2020-12-14 15:15:00 2020-12-14 15:15:00 Outpatient R [facility] [id number] [facility] 2020-12-14 15:15:00 2020-12-14 15:15:00 Outpatient R [facility] [id number] [facility] 2020-12-14 09:15:00 2020-12-14 09:15:00 Outpatient R [facility] [id number] [facility] 2020-12-11 11:34:00 2020-12-12 12:45:00 Outpatient X PASCUALHARJINDER KWONGLANI [facility] [id number] [facility] 2020-12-11 10:40:00 2020-12-11 11:23:17 Outpatient R LORETTAJAYLA KELLY [facility] [id number] [facility] 2020-12-11 10:40:00 2020-12-11 11:23:17 Outpatient R ELENI KELLY [facility] [id number] [facility] 2020-12-11 10:40:00 2020-12-11 11:23:17 Outpatient R LORETTAJAYLA KELLY [facility] [id number] [facility] 2020-12-11 10:40:00 2020-12-11 11:23:17 Outpatient R KELLY KNOWLES [facility] [id number] [facility] 2020-12-11 10:40:00 2020-12-11 11:23:17 Outpatient R KELLY KNOWLES [facility] [id number] [facility] 2020-12-11 10:40:00 2020-12-11 10:40:00 Outpatient R KELLY KNOWLES [facility] [id number] [facility] 2020-12-10 00:00:00 2020-12-10 23:59:00 [facility]patient [facility] [id number] [facility] 2020-12-10 00:00:00 2020-12-10 00:00:00 Outpatient KELLY KNOWLES [facility] [id number] [facility] 2020-12-07 10:00:00 2020-12-07 10:19:12 [facility] [id number] [facility] 2020-12-07 10:00:00 2020-12-07 10:19:12 Outpatient R LADD, SENDIL [facility] [id number] [facility] 2020-12-07 10:00:00 2020-12-07 10:19:12 Outpatient R LADD, SENDIL [facility] [id number] [facility] 2020-12-07 10:00:00 2020-12-07 10:19:12 Outpatient R LADD, SENDIL [facility] [id number] [facility] 2020-12-07 10:00:00 2020-12-07 10:19:12 Outpatient R LADD, SENDIL [facility] [id number] [facility] 2020-12-07 10:00:00 2020-12-07 10:19:12 Outpatient R LADD, SENDIL [facility] [id number] [facility] 2020-12-07 10:00:00 2020-12-07 10:19:12 Outpatient R LADD, SENDIL [facility] [id number] [facility] 2020-12-07 10:00:00 2020-12-07 10:00:00 Outpatient DAVID MATUTE [facility] [id number] [facility] 2020-11-30 16:20:00 2020-12-05 11:58:00 Inpatient Benoit John [facility] TE[facility] [id number] 38 [facility] 2020-11-30 19:30:00 2020-11-30 19:30:00 Outpatient SUNSHINE GALLAGHER STRAHIL [facility] [id number] [facility] 2020-11-29 14:00:00 2020-11-29 14:00:00 Outpatient CM CUMMINGS [facility] [id number] [facility] 2020-11-29 14:00:00 2020-11-29 14:00:00 Outpatient CM CUMMINGS [facility] [id number] [facility] 2020-11-29 14:00:00 2020-11-29 14:00:00 Outpatient CM [place] [facility] [id number] [facility] 2020-11-29 14:00:00 2020-11-29 14:00:00 Outpatient MC [place] [facility] [id number] [facility] 2020-11-29 14:00:00 2020-11-29 14:00:00 Outpatient CM [place] [facility] [id number] [facility] 2020-11-29 14:00:00 2020-11-29 14:00:00 Outpatient CM [place] [facility] [id number] [facility] 2020-11-29 09:43:42 2020-11-29 09:43:42 Inpatient HCAPM HCAPM [id number] 33 [facility] 2020-11-28 09:00:00 2020-11-28 09:00:00 Outpatient R [facility] [id number] [facility] 2020-11-27 19:30:00 2020-11-27 19:30:00 Outpatient R ATANASOV, STRAHIL ATANASOV[facility] [id number] [facility] 2020-11-27 19:30:00 2020-11-27 19:30:00 Outpatient R ATANASOV, STRAHIL ATANASOV[facility] [id number] [facility] 2020-11-27 19:30:00 2020-11-27 19:30:00 Outpatient R ATANASOV, STRAHIL ATANASOV, STRAHIL [facility] [id number] [facility] 2020-11-27 19:30:00 2020-11-27 19:30:00 Outpatient R ATANASOV, STRAHIL ATANASOV, STRAHIL [facility] [id number] [facility] 2020-11-27 19:30:00 2020-11-27 19:30:00 Outpatient R ATANASOV, STRAHIL ATANASOV, STRAHIL [facility] [id number] [facility] 2020-11-27 19:30:00 2020-11-27 19:30:00 Outpatient R ATANASOV, STRAHIL ATANASOV, STRAHIL [facility] [id number] [facility] 2020-11-26 11:30:00 2020-11-26 11:30:00 Outpatient R [facility] [id number] [facility] 2020-11-20 14:00:00 2020-11-20 14:00:00 Outpatient R DAVID LADD [facility] [id number] [facility] 2020-11-14 00:00:00 2020-11-14 00:00:00 Outpatient R MARIA E FISCHER [facility] [id number] [facility] 2020-11-14 00:00:00 2020-11-14 00:00:00 Outpatient R MARIA E FISCHER [facility] [id number] [facility] 2020-11-14 00:00:00 2020-11-14 00:00:00 Outpatient Paul BLOUNTMARIA E BOWERS [facility] [id number] [facility] 2020-11-14 00:00:00 2020-11-14 00:00:00 Outpatient MARIA E TRAN [facility] [id number] [facility] 2020-11-10 19:30:00 2020-11-10 19:30:00 Outpatient SUNSHINE GALLAGHER STRANCWandy [facility] [id number] [facility] 2020-11-08 12:00:00 2020-11-08 12:00:00 Outpatient R [facility] [id number] [facility] 2020-11-07 13:00:00 2020-11-07 13:00:00 Outpatient SUNSHINE GALLAGHER STRAHIL [facility] [id number] [facility] 2020-11-02 08:40:00 2020-11-02 08:40:00 Outpatient AYUSH DUNAWAY HOWARD [facility] [id number] [facility] 2020-11-02 08:40:00 2020-11-02 08:40:00 Outpatient AYUSH DUNAAWY HOWARD [facility] [id number] [facility] 2020-11-02 08:40:00 2020-11-02 08:40:00 Outpatient AYUSH DUNAWAY HOWARD [facility] [id number] [facility] 2020-11-02 08:40:00 2020-11-02 08:40:00 Outpatient AYUSH DUNAWAY HOWARD [facility] [id number] [facility] 2020-11-02 08:40:00 2020-11-02 08:40:00 Outpatient AYUSH DUNAWAY HOWARD [facility] [id number] [facility] 2020-11-02 08:40:00 2020-11-02 08:40:00 Outpatient AYUSH DUNAWAY HOWARD [facility] [id number] [facility] 2020-10-31 10:00:00 2020-10-31 10:27:10 Outpatient R LADDDAVID [facility] [id number] [facility] 2020-10-31 10:00:00 2020-10-31 10:27:10 Outpatient R LADDDAVID [facility] [id number] [facility] 2020-10-31 10:00:00 2020-10-31 10:27:10 Outpatient R LADDDAVID [facility] [id number] [facility] 2020-10-31 10:00:00 2020-10-31 10:27:10 Outpatient R LADDDAVID [facility] [id number] [facility] 2020-10-31 10:00:00 2020-10-31 10:00:00 Outpatient R WILBERTODAVID [facility] [id number] [facility] 2020-10-24 09:01:00 2020-10-25 16:45:00 Inpatient MARIA E MCELROY [facility] [id number] [facility] 2020-10-12 09:51:00 2020-10-13 12:38:00 Outpatient Brynn RIGGINSOH UGARTE [facility] [id number] [facility] 2020-10-11 09:20:00 2020-10-11 09:20:00 Outpatient MARIA E TRAN [facility] [id number] [facility] 2020-10-02 10:00:00 2020-10-02 11:14:31 Outpatient R WILBERTO DAVID [facility] [id number] [facility] 2020-10-02 10:00:00 2020-10-02 11:14:31 Outpatient R WILBERTO DAVID [facility] [id number] [facility] 2020-10-02 10:00:00 2020-10-02 11:14:31 Outpatient R WILBERTO SENDDANE [facility] [id number] [facility] 2020-10-02 10:00:00 2020-10-02 10:00:00 Outpatient R LADDDAVID PAREDES [facility] [id number] [facility] 2020-09-11 13:00:00 2020-09-11 13:46:40 Outpatient R KELLY KNOWLES [facility] [id number] [facility] 2020-09-11 13:00:00 2020-09-11 13:46:40 Outpatient R KELLY KNOWLES [facility] [id number] [facility] 2020-09-11 13:00:00 2020-09-11 13:46:40 Outpatient R ELENI [facility] [id number] [facility] 2020-09-11 13:00:00 2020-09-11 13:00:00 [facility] [id number] 2020-09-04 08:30:00 2020-09-04 08:30:00 Outpatient R WILBERTODAVID [facility] [id number] [facility] 2020-09-03 10:00:00 2020-09-03 11:08:35 Outpatient R WILBERTODAVID [facility] [id number] [facility] 2020-09-03 10:00:00 2020-09-03 11:08:35 Outpatient R WILBERTO DAVID [facility] [id number] [facility] 2020-09-03 10:00:00 2020-09-03 10:00:00 Outpatient R WILBERTO DAVID [facility] [id number] [facility] 2020-08-27 08:00:00 2020-08-28 16:04:00 Outpatient X OH ESPINOZA [facility] [id number] [facility] 2020-08-27 15:45:00 2020-08-27 15:45:00 Outpatient JANICE KENT [facility] [id number] [facility] 2020-08-12 22:05:00 2020-08-12 23:50:00 Emergency X MARY REYNAGA [facility] [id number] [facility] 2020-07-30 05:18:00 2020-08-09 15:32:00 Inpatient X THELMA GALLARDO [facility] [id number] [facility] 2020-07-30 05:18:00 2020-08-09 15:32:00 Inpatient X [facility] [id number] [facility] 2020-07-30 05:18:00 2020-08-09 15:32:00 Inpatient X THELMA GALLARDO [facility] [id number] [facility] 2020-07-23 11:00:00 2020-07-23 11:00:00 Outpatient DAVID MATUTE [facility] [id number] [facility] 2020-07-04 09:45:00 2020-07-05 13:00:00 Outpatient X LISANDRA ADAMS [facility] [id number] [facility] 2020-06-28 00:02:00 2020-06-28 01:33:00 Emergency X DORIS AMARAL [facility] [id number] [facility] 2020-06-28 00:02:00 2020-06-28 01:33:00 Emergency X DORIS AMARAL [facility] [id number] [facility] 2020-06-26 08:00:00 2020-06-26 08:00:00 Outpatient REBECCA SAUCEDO [facility] [id number] [facility] 2020-06-26 08:00:00 2020-06-26 08:00:00 Outpatient REBECCA SAUCEDO [facility] [id number] [facility] 2020-06-26 08:00:00 2020-06-26 08:00:00 Outpatient REBECCA SAUCEDO [facility] [id number] [facility] 2020-06-08 13:30:00 2020-06-08 13:30:00 Outpatient DAVID MATUTE [facility] [id number] [facility] 2020-06-08 13:30:00 2020-06-08 13:30:00 Outpatient DAVID MATUTE [facility] [id number] [facility] 2020-05-29 05:06:00 2020-06-02 14:30:00 Inpatient E JOSÉ MIGUEL PARKS [id number] [facility] 2020-05-30 00:00:00 2020-05-30 00:00:00 Outpatient KIM HU [facility] [id number] [facility] 2020-05-30 00:00:00 2020-05-30 00:00:00 Outpatient KIM HU [facility] [id number] [facility] 2020-05-22 16:20:00 2020-05-22 16:20:00 Outpatient KIM HU [facility] [id number] [facility] 2020-05-15 09:41:00 2020-05-16 12:59:00 Outpatient OH WITT [facility] [id number] [facility] 2020-05-15 16:00:00 2020-05-15 16:00:00 Outpatient DAVID MATUTE [facility] [id number] [facility] 2020-05-03 10:40:00 2020-05-03 10:40:00 Outpatient KIM HU [facility] [id number] [facility] 2020-04-30 09:07:00 2020-05-02 14:10:00 Inpatient OH WITT [facility] [id number] [facility] 2020-04-17 09:53:31 2020-04-17 23:59:00 Outpatient R RADIOLOGY [facility] [id number] [facility] 2020-04-17 00:00:00 2020-04-17 00:00:00 Outpatient R RADIOLOGY [facility] [id number] [facility] 2020-04-02 10:09:00 2020-04-04 11:59:00 Inpatient U OH ESPINOZA [facility] [id number] [facility] 2020-04-02 10:00:00 2020-04-02 10:00:00 Outpatient R DAVID LADD [facility] [id number] [facility] 2020-03-07 08:27:00 2020-03-08 13:05:00 Outpatient X OH ESPINOZA [facility] [id number] [facility] 2020-03-06 09:40:00 2020-03-06 09:40:00 Outpatient R KIN CORNELIA [facility] [id number] [facility] 2020-02-06 11:15:00 2020-02-06 11:15:00 Outpatient R JOSE MARLOW [facility] [id number] [facility] 2020-02-05 09:47:40 2020-02-05 12:00:00 Emergency X DENIS KNOX [facility] [id number] [facility] 2020-01-31 08:20:00 2020-01-31 08:20:00 Outpatient R KIM JONES [facility] [id number] [facility] 2020-01-17 07:06:06 2020-01-17 09:48:00 Emergency X DORIS AMARAL [facility] [id number] [facility] 2020-01-09 11:14:35 2020-01-13 15:51:00 Inpatient X ABBY COHEN [facility] [id number] [facility] 2019-12-29 14:00:00 2019-12-29 14:00:00 Outpatient R DAVID LADD [facility] [id number] [facility] 2019-12-28 13:45:00 2019-12-28 13:45:00 Outpatient R MARIA E FISCHER [facility] [id number] [facility] 2019-12-20 08:00:00 2019-12-20 08:00:00 Outpatient R KIM JONES [facility] [id number] [facility] 2019-12-16 13:18:28 2019-12-17 12:30:00 Outpatient X OH ESPINOZA [facility] [id number] [facility] 2019-12-09 14:24:00 2019-12-10 13:40:00 Outpatient U DAVID LADD [facility] [id number] [facility] 2019-12-09 11:00:00 2019-12-09 11:00:00 Outpatient R DAVID LADD [facility] [id number] [facility] 2019-10-28 09:30:00 2019-10-28 09:30:00 Outpatient R DAVID LADD [facility] [id number] [facility] 2019-10-27 16:00:00 2019-10-27 16:00:00 Outpatient R MARIA E FISCHER [facility] [id number] [facility] 2019-10-17 08:57:37 2019-10-18 16:37:00 Inpatient X OH ESPINOZA [facility] [id number] [facility] 2019-10-12 14:00:00 2019-10-12 14:00:00 Outpatient R SUNSHINE KLEIN STRAHIL [facility] [id number] [facility] 2019-10-06 10:00:00 2019-10-06 10:00:00 Outpatient R MARIA E FISCHER [facility] [id number] [facility] 2019-09-27 20:03:19 2019-09-29 12:43:00 Inpatient X VANITAJANIYA García [facility] [id number] [facility] 2019-09-15 11:00:00 2019-09-15 12:06:04 Outpatient R DAVID LADD [facility] [id number] [facility] 2019-09-08 12:40:00 2019-09-08 14:26:13 Outpatient R MARIA E FISCHER [facility] [id number] [facility] 2019-08-23 16:00:00 2019-08-23 16:00:00 Outpatient R KIM JONES [facility] [id number] [facility] 2019-08-05 10:13:21 2019-08-05 23:59:00 Outpatient KIM HU [facility] [id number] [facility] 2019-08-04 13:30:00 2019-08-04 14:24:09 Outpatient R SALOME GORDON [facility] [id number] [facility] 2019-08-01 13:00:00 2019-08-01 14:09:07 Outpatient R KIM JONES [facility] [id number] [facility] 2019-07-19 08:32:03 2019-07-20 17:30:00 Inpatient X JANIYA WALDRON [facility] [id number] [facility] 2015-02-25 10:52:00 2015-02-25 15:20:00 Emergency X JO RANDLE [facility] [id number] [facility] Results Test Description Test Time Test Comments Results Result Co mments Source [facility] Panel (35599)2024-10-05 00:40:27* Test Item Value Reference Range Interpretation Comme nts NA (test code = 3989693315) 139 mmol/L 135-145 K (test code = 2919773207) 3.8 mmol/L 3.5-5.0 CL (test code = 4323898364) 101 mmol/L 98-108 CO2 TOTAL (test code = 3016361369) 30 mmol/L 23-31 AGAP (test code = 2486138178) 8 2-16 BUN (test code = 0804800954) 26 mg/dL 7-23 H GLUCOSE (test code = 5562566912) 106 mg/dL 70-110 CREATININE (test code = 2160-0) 1.59 mg/dL 0.60-1.25 H TOTAL BILI (test code = 9441993178) 1.1 mg/dL 0.1-1.1 CALCIUM (test code = 0865105997) 9.3 mg/dL 8.6-10.6 T PROTEIN (test code = 3505125383) 8.3 g/dL 6.3-8.2 H ALBUMIN (test code = 0132126434) 4.5 g/dL 3.5-5.0 ALK PHOS (test code = 5661591808) 67 U/L 34-122 ALTv (test code = 1742-6) 35 U/L 5-50 AST(SGOT) (test code = 4594962699) 41 U/L 13-40 H eGFR (test code = 36177-6) 50.3 mL/min/1.73m2 CKD-EPI eGFR (2020). Assuming creatinine has been stable day-to-day for at least three months, the eGFR indicates Category G3a (45 - 59 mL/min/1.73 m2) Lab Interpretation (test code = 94991-1) Abnormal [facility] with [id number] 00:27:04* Test Item Value Reference Range Interpretation Comme nts WBC (test code = 6690-2) 4.82 4.20-10.70 RBC (test code = 789-8) 6.03 4.26-5.52 H HGB (test code = 718-7) 15.7 g/dL 12.2-16.4 HCT (test code = 4544-3) 51.0 % 38.4-49.3 H MCV (test code = 787-2) 84.6 fL 81.7-95.6 MCH (test code = 785-6) 26.0 pg 26.1-32.7 L MCHC (test code = 786-4) 30.8 g/dL 31.2-35.0 L RDW-SD (test code = 82084-5) 56.6 fL 38.5-51.6 H RDW-CV (test code = 788-0) 19.1 % 12.1-15.4 H PLT (test code = 777-3) 214 150-328 MPV (test code = 42000-8) 11.6 fL 9.8-13.0 NRBC/100 WBC (test code = 6631821787) 0.0 0.0-10.0 NRBC x10^3 (test code = 8472300828) See_Comment [Automated messa ge] The system which generated this result transmitted reference range: 10*3/?L. The reference range was not used to interpret this result as normal/abnormal. GRAN MAT (NEUT) % (test code = 770-8) 43.5 % IMM GRAN % (test code = 4859355347) 0.20 % LYMPH % (test code = 736-9) 40.5 % MONO % (test code = 5905-5) 13.3 % EOS % (test code = 713-8) 1.9 % BASO % (test code = 706-2) 0.6 % GRAN MAT x10^3(ANC) (test code = 1768825944) 2.10 10*3/uL 1.99-6.95 IMM GRAN x10^3 (test code = 5448795773) 0.00-0.06 LYMPH x10^3 (test code = 731-0) 1.95 10*3/uL 1.09-3.23 MONO x10^3 (test code = 742-7) 0.64 10*3/uL 0.36-1.02 EOS x10^3 (test code = 711-2) 0.09 10*3/uL 0.06-0.53 BASO x10^3 (test code = 704-7) 0.03 10*3/uL 0.01-0.09 Lab Interpretation (test code = 29153-8) [facility]normal [facility] wo [id number] 23:46:20CT HEAD WO CONTRAST HISTORY:58 years old Male with Neuro deficit, acute, stroke suspected COMPARISON: CT head 06/05/2022 TECHNIQUE: Noncontrast axial images of the head, with coronal and sagittalreformats. 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 A remote defect ofthe right lamina papyracea is noted. The ventricles and cerebral sulci are normal in caliber and configuration.No hydrocephalus, midline shift or pathological extra-axial fluidcollection is present. The basal cisterns are unremarkable. There is no acute intracranial hemorrhage or significant mass effect.Periventricular and patchy deep white matter hypoattenuation is nonspecificand likely represents microvascular ischemic changes. A remote lacunarinfarct is seen in the right basal ganglia adjacent to the caudate head.The herzog-white matter differentiation is preserved. The mastoid air cells and paranasal air sinuses are clear. The calvariumand central skull base are unremarkable.[facility] 12 lead (arrhythmia)2024-10-03 03:25:46* Test Item Value Reference Range Interpretation Comme nts Ventricular Rate (test code = 2825136988) BPM Atrial Rate (test code = 8854569768) BPM QRS Duration (test code = 9476036386) 206 ms QT/QTc (test code = 9759110049) 530 ms QTc Calculation (test code = 9818792846) 626 ms R-[place] (test code = 3279484095) degrees T-[place] (test code = 2799706218) degrees IMP (test code = IMP) PXN (test code = PXN) [facility] - [id number] 21:53:43* Test Item Value Reference Range Interpretation Comme nts BSA (test code = 3140274778) 2.18 m2 Radiology Study observation (narrative) (test code = 56797-8) JACOB (test code = JACOB) [facility]andTransthoracic echo (TTE) [id number] 10:17:01* Test Item Value Reference Range Interpretation Comme nts RVOT Vmean (test code = 5439232914) 0.45 m/s LA Vol I (A4C) BSA (test code = 0534831825) 110.7 ml/m2 LA Vol I BSA (test code = 1790357135) 70.7 ml/m2 LVOT Vmax/AV Vmax (test code = 8903711236) 0.85 {ratio} Ao Root diam diastole (test code = 9787536502) 32 mm LVOT Vmean (test code = 4588837824) 0.59 m/s LV SV (A4C) (test code = 3058426264) 68 ml LV SI (A2C) (test code = 4484880117) 51 ml LV SV (BP) (test code = 1213527452) 55 ml LV SI (A4C) (test code = 9279886501) 31.6 ml/m2 LV SI (A2C) (test code = 2431191808) 23.7 ml/m2 LV SI (BP) (test code = 0385726597) 25.6 ml/m2 LVLs (A4C) (test code = 2257165286) 122 mm LVLs (A2C) (test code = 9510200208) 110 mm LVLd (A4C) (test code = 8786186261) 123 mm LVLd (A2C) (test code = 2789781212) 116 mm PV mn sommer (test code = 6817088222) 0.63 m/s LV ESV A2C (test code = 6347512585) 225 mL LV EDV A4C (test code = 8034531161) 377 mL LA area A4C (test code = 3399733605) 52.6 cm2 LA area A2C (test code = 8349626284) 37.5 cm2 LV ESV A4C (test code = 9220194439) 311 mL LV EDV A2C (test code = 0977402014) 277 mL TR pk grad (test code = 8618242885) mmHg TAPSE (test code = 4686309058) 20 mm RV FAC 2D (test code = 0331714026) LA ESV A2C (test code = 6689826329) 152 mL LA ESV A4C (test code = 1341705325) 152 mL RV ANANYA (test code = 7838307267) 25.8 cm2 LV est EF (test code = 9112383848) 17 % LA vol index (test code = 5261040389) 95.8 mL/m2 LV EDV BP (test code = 0743652225) 332 mL LV ESV BP (test code = 6314791403) 277 mL MV A pk sommer (test code = 5052622301) 0.8 m/s MV PHT (test code = 2712369490) 45 ms MV E pk sommer (test code = 4247195891) 0.94 m/s PV mn grad (test code = 6504973383) mmHg AV pk grad (test code = 1807332710) mmHg LV stroke vol (test code = 8150362268) 43 ml RVOT VTI (test code = 5279279756) 13.2 cm RVOT pk osmmer (test code = 1365595985) 0.71 m/s AV VTI (test code = 3394802210) 17.6 cm AV pk sommer (test code = 3400418270) 0.97 m/s LVOT VTI (test code = 5438842189) 11.2 cm LVOT pk sommer (test code = 7531650759) 0.82 m/s LVOT area (test code = 0532179080) 3.8 cm2 LVOT diam (test code = 6882092120) 22 mm MV DT (test code = 5880141117) 154 ms MV e' lateral sommer (test code = 1256185497) 2.89 cm/s MV E/A ratio (test code = 1454188824) PV pk grad (test code = 9103136313) mmHg MV area PHT (test code = 7045355073) 4.89 cm2 LVOT pk grad (test code = 9577467316) mmHg AV mn grad (test code = 2609356828) mmHg RVOT mn grad (test code = 6095105704) mmHg RVOT pk grad (test code = 6903323323) mmHg MV E/e' septal (test code = 0617786617) RA vol (test code = 8417427236) 43.8 mL/m2 TR pk sommer (test code = 3161584642) 3.1 m/s AV area pk sommer (test code = 9542129624) 3.22 cm2 AV area cont VTI (test code = 6821169252) 2.42 cm2 LVOT mn grad (test code = 9693179996) mmHg RV KARIN (test code = 7369747466) 30.9 cm2 RV-covarrubias mid diam (test code = 7160679896) 35 cm RV-covarrubias basal diam (test code = 3172941897) 48 cm RV-covarrubias longitudinal diam (test code = 0805197292) 117 cm LV A4C EF (test code = 2197333408) 18 % LV A2C EF (test code = 3651988216) 18 % AV mn sommer (test code = 6978385395) 0.66 m/s LVPWd (test code = 4747269062) 13 mm LA size (test code = 3083922411) 40 mm Ascending aorta (test code = 0506149528) [address] junction (test code = 5068732341) 27 mm LA vol BP (test code = 2349508257) 206 ml LV biplane EF (test code = 4571967418) 16.6 % Fractional Shortening 2D (test code = 3339516710) 8 % LVIDs (test code = 1377999535) 64 mm IVSd (test code = 7149846692) 11 mm LVIDd (test code = 5087218511) 70 mm PV pk sommer (test code = 9749081116) 1.03 m/s PV VTI (test code = 5656272) 17 cm MV E/e' lateral (test code = 1108908) MV e' septal sommer (test code = 9682639) 5.17 cm/s LV ESV 2D (test code = 4345785) 211 mL LV EDV 2D (test code = 3584529) 255 mL IVSd 2D (test code = 2154696) 10.508103104908938 cm BSA (test code = 0150681118) 2.18 m2 RVSP (test code = 9702970) mmHg RAP (test code = 9171386482) mmHg Radiology Study observation (narrative) (test code = 42901-9) JACOB (test code = JACOB) [facility] EpicXR Chest 1 [id number] 20:21:18PROCEDURE: XR CHEST 1 09/19/2024 1:39 PM CLINICAL INDICATION: sob COMPARISON: Radiograph of 09/18/2024 FINDINGS:The ICD leads are unchanged with the tip overlying right atrium, rightventricle and coronary sinus. A cardioMems overlying left descendingpulmonary artery.The lungs are well-expanded. Mild vascular congestion and peribronchialcuffing are again noted. There is no right pleural effusion.The leftcostophrenic angle is obscured by cardiomegaly. No pneumothorax. Marked cardiomegaly, unchanged. No aggressive osseous lesion.[facility] HospitalTRPRISMA [facility] PATEWOOD HOSPITALNYDIA [id number] 18:19:45* Test Item Value Reference Range Interpretation Comme nts TROPONIN I (test code = 1567675923) 0.046 ng/mL <=0.034 H JACOB (test code = JACOB) Reference (Normal) [...] of biotin. Lab Interpretation (test code = 80241-6) Abnormal [facility] WITH [id number] 18:19:04* Test Item Value Reference Range Interpretation Comme nts WBC (test code = 6690-2) 4.96 4.20-10.70 RBC (test code = 789-8) 5.90 4.26-5.52 H HGB (test code = 718-7) 15.4 g/dL 12.2-16.4 HCT (test code = 4544-3) 49.7 % 38.4-49.3 H MCV (test code = 787-2) 84.2 fL 81.7-95.6 MCH (test code = 785-6) 26.1 pg 26.1-32.7 MCHC (test code = 786-4) 31.0 g/dL 31.2-35.0 L RDW-SD (test code = 26941-2) 56.0 fL 38.5-51.6 H RDW-CV (test code = 788-0) 19.2 % 12.1-15.4 H PLT (test code = 777-3) 171 150-328 MPV (test code = 34722-2) 11.4 fL 9.8-13.0 IPF % (test code = 2279860862) 6.1 % 1.2-10.7 Platelet count measured by fluorescence method. NRBC/100 WBC (test code = 0300393456) 0.0 0.0-10.0 NRBC x10^3 (test code = 1155064523) See_Comment [Automated [employer]] The system which generated this result transmitted reference range: 10*3/?L. The reference range was not used to interpret this result as normal/abnormal. GRAN MAT (NEUT) % (test code = 770-8) 54.6 % IMM GRAN % (test code = 9194780660) 0.20 % LYMPH % (test code = 736-9) 34.3 % MONO % (test code = 5905-5) 8.9 % EOS % (test code = 713-8) 1.6 % BASO % (test code = 706-2) 0.4 % GRAN MAT x10^3(ANC) (test code = 0785213487) 2.71 10*3/uL 1.99-6.95 IMM GRAN x10^3 (test code = 9050695477) 0.00-0.06 LYMPH x10^3 (test code = 731-0) 1.70 10*3/uL 1.09-3.23 MONO x10^3 (test code = 742-7) 0.44 10*3/uL 0.36-1.02 EOS x10^3 (test code = 711-2) 0.08 10*3/uL 0.06-0.53 BASO x10^3 (test code = 704-7) 0.01-0.09 Lab Interpretation (test code = 91285-8) [facility]normal [id number] 18:17:08* Test Item Value Reference Range Interpretation Comme nts NT-proBNP (test code = 75365-3) 6340 pg/mL <=125 H JACOB (test code = JACOB) Positive: Heart Failure Likely Lab Interpretation (test code = 59529-7) [facility]normal [facility] 18:09:04* Test Item Value Reference Range Interpretation Comme nts MAGNESIUM (test code = 6621333024) 1.9 mg/dL 1.7-2.4 Lab Interpretation (test cod e = 32744-5) Normal [facility] (48724)2024-09-19 18:08:44* Test Item Value Reference Range Interpretation Comme nts NA (test code = 5931893278) 141 mmol/L 135-145 K (test code = 0891752529) 4.0 mmol/L 3.5-5.0 CL (test code = 2821206541) 104 mmol/L 98-108 CO2 TOTAL (test code = 3009798511) 27 mmol/L 23-31 AGAP (test code = 7391951084) 10 2-16 BUN (test code = 2842339260) 21 mg/dL 7-23 GLUCOSE (test code = 3788573821) 122 mg/dL 70-110 H CREATININE (test code = 2160-0) 1.54 mg/dL 0.60-1.25 H TOTAL BILI (test code = 9408181321) 1.8 mg/dL 0.1-1.1 H CALCIUM (test code = 5671242065) 9.4 mg/dL 8.6-10.6 T PROTEIN (test code = 6135582394) 8.3 g/dL 6.3-8.2 H ALBUMIN (test code = 6883278589) 4.5 g/dL 3.5-5.0 ALK PHOS (test code = 1128343954) 93 U/L 34-122 ALTv (test code = 1742-6) 32 U/L 5-50 AST(SGOT) (test code = 4907458033) 60 U/L 13-40 H eGFR (test code = 36175-8) 52.3 mL/min/1.73m2 CKD-EPI eGFR (2020). Assuming creatinine has been stable day-to-day for at least three months, the eGFR indicates Category G3a (45 - 59 mL/min/1.73 m2) Lab Interpretation (test code = 23472-3) [id number]:09:06* Test Item Value Reference Range Interpretation Comme nts TROPONIN I (test code = 7732165255) 0.044 ng/mL <=0.034 H JACOB (test code = JACOB) Reference (Normal) [...] of biotin. Lab Interpretation (test code = 88947-9) [facility]normal [facility] (NA, K, CL, CO2, GLUCOSE, BUN, CREATININE, CA)2024-09-18 21:57:04* Test Item Value Reference Range Interpretation Comme nts NA (test code = 6385535035) 142 mmol/L 135-145 K (test code = 3204555778) 3.4 mmol/L 3.5-5.0 L CL (test code = 3879644069) 106 mmol/L 98-108 CO2 TOTAL (test code = 0495499000) 28 mmol/L 23-31 AGAP (test code = 7174086261) 8 2-16 BUN (test code = 4136800374) 22 mg/dL 7-23 GLUCOSE (test code = 9402190873) 97 mg/dL 70-110 CREATININE (test code = 2160-0) 1.47 mg/dL 0.60-1.25 H CALCIUM (test code = 9417958238) 9.4 mg/dL 8.6-10.6 eGFR (test code = 66403-7) 55.3 mL/min/1.73m2 CKD-EPI eGFR (2020). Assuming creatinine has been stable day-to-day for at least three months, the eGFR indicates Category G3a (45 - 59 mL/min/1.73 m2) Lab Interpretation (test code = 88068-9) [facility]normal [facility] [id number] 21:37:26* Test Item Value Reference Range Interpretation Comme nts WBC (test code = 6690-2) 5.23 4.20-10.70 RBC (test code = 789-8) 5.92 4.26-5.52 H HGB (test code = 718-7) 15.5 g/dL 12.2-16.4 HCT (test code = 4544-3) 50.2 % 38.4-49.3 H MCV (test code = 787-2) 84.8 fL 81.7-95.6 MCH (test code = 785-6) 26.2 pg 26.1-32.7 MCHC (test code = 786-4) 30.9 g/dL 31.2-35.0 L RDW-SD (test code = 38416-7) 56.8 fL 38.5-51.6 H RDW-CV (test code = 788-0) 19.5 % 12.1-15.4 H PLT (test code = 777-3) 172 150-328 MPV (test code = 76388-3) 11.0 fL 9.8-13.0 NRBC/100 WBC (test code = 5702735998) 0.0 0.0-10.0 NRBC x10^3 (test code = 7592840342) See_Comment [Automated messa ge] The system which generated this result transmitted reference range: 10*3/?L. The reference range was not used to interpret this result as normal/abnormal. GRAN MAT (NEUT) % (test code = 770-8) 51.0 % IMM GRAN % (test code = 9229737897) 0.20 % LYMPH % (test code = 736-9) 37.5 % MONO % (test code = 5905-5) 9.4 % EOS % (test code = 713-8) 1.5 % BASO % (test code = 706-2) 0.4 % GRAN MAT x10^3(ANC) (test code = 0146421887) 2.67 10*3/uL 1.99-6.95 IMM GRAN x10^3 (test code = 8247098630) 0.00-0.06 LYMPH x10^3 (test code = 731-0) 1.96 10*3/uL 1.09-3.23 MONO x10^3 (test code = 742-7) 0.49 10*3/uL 0.36-1.02 EOS x10^3 (test code = 711-2) 0.08 10*3/uL 0.06-0.53 BASO x10^3 (test code = 704-7) 0.01-0.09 Lab Interpretation (test code = 42238-2) [facility]normal [facility] (TTE)2024-08-20 03:40:37* Test Item Value Reference Range Interpretation Comme nts Height (test code = 4165295023) 74 in Weight (test code = 7751222709) 277 lbs Systolic BP (test code = 0809436287) 100 mmHg Diastolic BP (test code = 0023323777) 80 mmHg Heart Rate (test code = 1164561691) 82 bpm BSA (test code = 6293086316) 2.50 m2 LVIDD (test code = 8614115178) 6.40 cm Left Ventricular End Diastolic Volume by Teichholz Method (test code = 9319702) 209.3 mL IVS (test code = 5712913134) 1.19 cm Interventricular Septum Diastolic Thickness by 2D (test code = 6151844) 1.19 cm LVPWD (test code = 0533520399) 1.76 cm PW (test code = 2421387191) 1.76 cm 0.6-1.1 EF(Teich) (test code = 1080074092) 8.90 % LVIDS (test code = 2146571009) 6.20 cm Left Ventricular End Systolic Volume by Teichholz Method (test code = 2310652) 190.6 mL FS (test code = 4254145353) 4 % EF - 2D (test code = 57590991) 8.90 % Radiology Study observation (narrative) (test code = 07560-6) JACOB (test code = JACOB) ?Left?Ventricle: Left ventricle is severely dilated. Severe global hypokinesis present. Estimated EF is 5 - 10%. ?Limited study to assess for EF and wall motion Left VentricleLeft ventricle is severely dilated. Severe global hypokinesis present. Estimated EF is 5 - 10%.Right VentricleNot assessed.Left AtriumNot assessed.Right AtriumNot assessed.IVC/SVCIVC was not assessed.Mitral ValveNot assessed.Tricuspid ValveNot assessed.Aortic ValveNot well visualized. Mildly calcified cusps.Pulmonic ValveNot well visualized.Ascending AortaNot well visualized.Pericardiu mNot well visualized.Study DetailsStudy quality was good. A limited echocardiogram was performed using 2D. The apical and parasternal views were obtained. 5 mL of Lumason ultrasound enhancing agent used. [facility] (AUTOMATED)2024-08-19 17:41:22* Test Item Value Reference Range Interpretation Comme nts POCT GLU (test code = 4635283931) 91 mg/dL 70-110 Lab Interpretation (test cod e = 06745-8) Normal [facility] [id number] 02:45:18* Test Item Value Reference Range Interpretation Comme nts TROPONIN I (test code = 4581845513) 0.589 ng/mL <=0.034 H JACOB (test code = JACOB) Reference (Normal) [...] of biotin. Lab Interpretation (test code = 17878-8) Abnormal [facility] HospitalXR CHEST 1 [id number] 02:25:26Exam: Chest (1 View), 08/18/2024 7:30 PM. Ordering Physician: JESSE SOLIZ. History: chest pain . Technique: One view of the chest. Comparison: Chest radiograph 08/09/2024. Findings: The right lung appears clear. Persistent opacities in the left lung base.No pneumothorax. Cardiac silhouette remains enlarged but stable. Left- sidedAICD. No acute osseous finding.[facility] HospitalN-TERMINAL [id number] 02:16:35* Test Item Value Reference Range Interpretation Comme nts NT-proBNP (test code = 86004-5) 4720 pg/mL <=125 H JACOB (test code = JACOB) Positive: Heart Failure Likely Lab Interpretation (test code = 17239-7) Abnormal [facility] METABOLIC PANEL (NA, K, CL, CO2, GLUCOSE, BUN, CREATININE, CA)2024-08-19 02:07:18* Test Item Value Reference Range Interpretation Comme nts NA (test code = 5563639390) 138 mmol/L 135-145 K (test code = 1349033688) 3.9 mmol/L 3.5-5.0 CL (test code = 2620447808) 106 mmol/L 98-108 CO2 TOTAL (test code = 0775024434) 25 mmol/L 23-31 AGAP (test code = 2635721227) 7 2-16 BUN (test code = 5952277230) 24 mg/dL 7-23 H GLUCOSE (test code = 3956559118) 106 mg/dL 70-110 CREATININE (test code = 2160-0) 1.48 mg/dL 0.60-1.25 H CALCIUM (test code = 9300734870) 9.0 mg/dL 8.6-10.6 eGFR (test code = 98549-1) 54.8 mL/min/1.73m2 CKD-EPI eGFR (2020). Assuming creatinine has been stable day-to-day for at least three months, the eGFR indicates Category G3a (45 - 59 mL/min/1.73 m2) Lab Interpretation (test code = 18456-1) Abnormal [facility] with [id number] 01:56:15* Test Item Value Reference Range Interpretation Comme nts WBC (test code = 6690-2) 5.38 4.20-10.70 RBC (test code = 789-8) 5.44 4.26-5.52 HGB (test code = 718-7) 13.9 g/dL 12.2-16.4 HCT (test code = 4544-3) 44.6 % 38.4-49.3 MCV (test code = 787-2) 82.0 fL 81.7-95.6 MCH (test code = 785-6) 25.6 pg 26.1-32.7 L MCHC (test code = 786-4) 31.2 g/dL 31.2-35.0 RDW-SD (test code = 21706-5) 52.2 fL 38.5-51.6 H RDW-CV (test code = 788-0) 19.0 % 12.1-15.4 H PLT (test code = 777-3) 172 150-328 MPV (test code = 81525-8) 10.4 fL 9.8-13.0 NRBC/100 WBC (test code = 8432686817) 0.0 0.0-10.0 NRBC x10^3 (test code = 7577394516) See_Comment [Automated [employer] ge] The system which generated this result transmitted reference range: 10*3/?L. The reference range was not used to interpret this result as normal/abnormal. GRAN MAT (NEUT) % (test code = 770-8) 49.8 % IMM GRAN % (test code = 2273832376) 0.20 % LYMPH % (test code = 736-9) 35.1 % MONO % (test code = 5905-5) 13.0 % EOS % (test code = 713-8) 1.5 % BASO % (test code = 706-2) 0.4 % GRAN MAT x10^3(ANC) (test code = 9859826256) 2.68 10*3/uL 1.99-6.95 IMM GRAN x10^3 (test code = 0204249721) 0.00-0.06 LYMPH x10^3 (test code = 731-0) 1.89 10*3/uL 1.09-3.23 MONO x10^3 (test code = 742-7) 0.70 10*3/uL 0.36-1.02 EOS x10^3 (test code = 711-2) 0.08 10*3/uL 0.06-0.53 BASO x10^3 (test code = 704-7) 0.01-0.09 Lab Interpretation (test code = 83226-7) Abnormal [facility] GLUCOSE (AUTOMATED)2024-08-15 17:49:45* Test Item Value Reference Range Interpretation Comme nts POCT GLU (test code = 4063144243) 128 mg/dL 70-110 H Lab Interpretation (test cod e = 55156-6) Abnormal [facility] GLUCOSE (AUTOMATED)2024-08-15 17:49:45* Test Item Value Reference Range Interpretation Comme nts POCT GLU (test code = 9350103441) 128 mg/dL 70-110 H Lab Interpretation (test cod e = 37887-8) Abnormal [facility] GLUCOSE (AUTOMATED)2024-08-15 13:49:08* Test Item Value Reference Range Interpretation Comme nts POCT GLU (test code = 0240177071) 97 mg/dL 70-110 Lab Interpretation (test cod e = 05741-7) Normal [facility] GLUCOSE (AUTOMATED)2024-08-15 13:49:08* Test Item Value Reference Range Interpretation Comme nts POCT GLU (test code = 3258166545) 97 mg/dL 70-110 Lab Interpretation (test cod e = 22642-7) Normal [facility] GLUCOSE (AUTOMATED)2024-08-15 02:32:08* Test Item Value Reference Range Interpretation Comme nts POCT GLU (test code = 3461349875) 115 mg/dL 70-110 H Lab Interpretation (test cod e = 21179-7) Abnormal [facility] GLUCOSE (AUTOMATED)2024-08-15 02:32:08* Test Item Value Reference Range Interpretation Comme nts POCT GLU (test code = 7820263999) 115 mg/dL 70-110 H Lab Interpretation (test cod e = 79616-3) Abnormal [facility] GLUCOSE (AUTOMATED)2024-08-14 23:24:41* Test Item Value Reference Range Interpretation Comme nts POCT GLU (test code = 5775948963) 98 mg/dL 70-110 Lab Interpretation (test cod e = 50255-5) Normal [facility] GLUCOSE (AUTOMATED)2024-08-14 23:24:41* Test Item Value Reference Range Interpretation Comme nts POCT GLU (test code = 6784085233) 98 mg/dL 70-110 Lab Interpretation (test cod e = 22419-0) Normal [facility] GLUCOSE (AUTOMATED)2024-08-14 18:36:12* Test Item Value Reference Range Interpretation Comme nts POCT GLU (test code = 9976485636) 113 mg/dL 70-110 H Lab Interpretation (test cod e = 76405-9) Abnormal [facility] GLUCOSE (AUTOMATED)2024-08-14 18:36:12* Test Item Value Reference Range Interpretation Comme nts POCT GLU (test code = 2402466022) 113 mg/dL 70-110 H Lab Interpretation (test cod e = 73522-1) Abnormal [facility] GLUCOSE (AUTOMATED)2024-08-14 14:46:10* Test Item Value Reference Range Interpretation Comme nts POCT GLU (test code = 2784672497) 98 mg/dL 70-110 Lab Interpretation (test cod e = 12152-4) Normal [facility] GLUCOSE (AUTOMATED)2024-08-14 14:46:10* Test Item Value Reference Range Interpretation Comme nts POCT GLU (test code = 5400523391) 98 mg/dL 70-110 Lab Interpretation (test cod e = 74231-9) Normal [facility] GLUCOSE (AUTOMATED)2024-08-14 03:15:38* Test Item Value Reference Range Interpretation Comme nts POCT GLU (test code = 3481163404) 148 mg/dL 70-110 H Lab Interpretation (test cod e = 78148-9) Abnormal [facility] GLUCOSE (AUTOMATED)2024-08-14 03:15:38* Test Item Value Reference Range Interpretation Comme nts POCT GLU (test code = 2665377197) 148 mg/dL 70-110 H Lab Interpretation (test cod e = 65390-2) Abnormal [facility] GLUCOSE (AUTOMATED)2024-08-13 19:10:07* Test Item Value Reference Range Interpretation Comme nts POCT GLU (test code = 8908982888) 138 mg/dL 70-110 H Lab Interpretation (test cod e = 58091-0) Abnormal [facility] GLUCOSE (AUTOMATED)2024-08-13 19:10:07* Test Item Value Reference Range Interpretation Comme nts POCT GLU (test code = 8387852537) 138 mg/dL 70-110 H Lab Interpretation (test cod e = 27133-4) Abnormal [facility] GLUCOSE (AUTOMATED)2024-08-13 14:46:09* Test Item Value Reference Range Interpretation Comme nts POCT GLU (test code = 4812607136) 81 mg/dL 70-110 Lab Interpretation (test cod e = 11208-4) Normal [facility] GLUCOSE (AUTOMATED)2024-08-13 14:46:09* Test Item Value Reference Range Interpretation Comme nts POCT GLU (test code = 4294840030) 81 mg/dL 70-110 Lab Interpretation (test cod e = 53931-7) Normal [facility] Hospital[facility]rophysiology [id number] 02:56:09 Supraventricular Tachycardia AblationProcedure: Atrial Flutter Ablation Indication: Recurrent Highly Symptomatic Atrial Flutter Refractory to Pharmacologic Suppression Technique: The patient presented to the electrophysiology lab in the fasting state. An EKG was performed, and it showed that the patient was in normal sinus rhythm. Anesthesia administered by the anesthesia team. The patient was prepped and draped in the usual sterile manner. The right common femoral vein was accessed 2 times under ultrasound guidance and 2 sheaths were placed in this vein. A Dynamic catheter was positioned in the right atrium with its distal tip in the coronary sinus. Recordings were made from the right atrium and CS by this catheter. A complete EP study with CS pacing was then performed..With stimulation and pacing the patient did not go into tachycardia.Aggressive pacing was performed via both the right and CS and the patient still did not go into atrial flutter.Since this patient had documented CTI flutter on several prior EKGs we decided to proceed with an empiric CTI flutter line.A 3D electroanatomic map of the right atrium was performed with [place] catheter, ?A series of RF ablation lesions were applied from the ventricular side of the tricuspid valve to the inferior vena cava. Ablation was performed at a maximum power of 40 W. This resulted in termination of the tachycardia. After completion of the lesion set bidirectional block was demonstrated via mapping.With stimulation and pacing no further sustained tachycardia was induced.The sheaths were removed and manual pressure was applied.Excellent hemostasis was achieved.The patient was then transferred to recovery for observation.The patient the procedure well and there were no acute complications.My plan is to have the patient follow up with me in clinic in three months. Impression: -Successful Atrial Flutter Ablation (CTI-dependent) Plan:Remove figure of 8 from both groins in 6 hr.Anticoagulation: Continue ?C/w amiodarone Akhil Barriga MD Follow up in the arrhythmia clinic as scheduled Procedure DetailsSupraventricular Tachycardia AblationProcedure:?Atrial Flutter Ablation?Indication:?Recurrent?Highly Symptomatic?Atrial?Flutter?Refractory to?Pharmacologic?Suppression??Technique:?The patient presented to the electrophysiology lab in the fasting state. An EKG was performed, and it showed that the patient was in?normal sinus rhythm. Anesthesia?administered by the anesthesia team.?The patient was prepped and draped in the usual sterile manner. The right common femoral vein was accessed 2 times?under ultrasound guidance?and 2 sheaths were placed in this vein. A Dynamic catheter was positioned in the right atrium with its distal tip in the coronary sinus. Recordings were made from the right atrium and CS by this catheter. A complete EP study with CS pacing was then performed..With stimulation and pacing the patient did not go into tachycardia.Aggressive pacing was performed via both the right and CS and the patient still did not go into atrial flutter.Since this patient had documented CTI flutter on several prior EKGs we decided to proceed with an empiric CTI flutter line.A?3D?electroanatomic map of the right atrium was performed with [place] catheter, ?A series of RF ablation lesions were applied from the ventricular side of the tricuspid valve to the inferior vena cava. Ablation was performed at a maximum power of 40 W. This resulted in termination of the tachycardia. After completion of the lesion set bidirectional block was demonstrated via mapping.With stimulation and pacing no further sustained t achycardia was induced.The sheaths were?removed and manual pressure was applied.Excellent hemostasis was achieved.The patient was then transferred to recovery for observation.The patient the procedure well and there were no acute complications.My plan is to?have the patient follow?up with me in clinic in?three?months.?Impression: -Successful Atrial Flutter Ablation (CTI- dependent)Plan:Remove figure of 8 from both groins in 6 hr.Anticoagulation: Continue C/w amiodarone Akhil Barriga MDFollow up in the arrhythmia clinic as scheduledCH[facility] HospitalIntubation2025-01-11 01:37:00Cande Marley MD ? ? 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 Indications and Patient ConditionIndications for airway management: anesthesiaSpontaneous Ventilation: absentSedation level: deepPreoxygenated: yesPatient position: sniffingMask difficulty assessment: 2 - vent by mask + OA or adjuvant +/- NMBA Final Airway DetailsFinal airway type: endotracheal airway Successful airway: ETTCuffed: yes Successful intubation technique: video laryngoscopyFacilitating devices/methods: intubating styletEndotracheal tube insertion site: oralBlade type: LoPro S3.Blade size: #3ETT size (mm): 7.5Cormack-Lehane Classification: grade I - full view of glottisPlacement verified by: capnometry Measured from: lipsETT to lips (cm): 23Number of attempts at approach: 1Ventilation between attempts: noneNumber of other approaches attempted: 0 Additional CommentsSmooth, atraumatic, dentition and lips unchanged from pre-op.[facility] HospitalTransesophageal echo (JOSE)2024-08-12 22:17:27* Test Item Value Reference Range Interpretation Comme nts Height (test code = 2897194411) 74 in Weight (test code = 0967376855) 284 lbs Systolic BP (test code = 8529364837) 143 mmHg Diastolic BP (test code = 4493086425) 95 mmHg Heart Rate (test code = 1888934430) 70 bpm Radiology Study observation (narrative) (test code = 15024-9) JACOB (test code = JACOB) ?Left?Ventricle: Left ventricle is dilated. Reduced systolic function. ?Right?Ventricle: 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 leads appreciated. Freely mobile filamentous structure is attached to the lead measuring 1.1 cm. Clinical correlation recommended. ?Left?Atrium: Left atrium is dilated. Aneurysmal septum , no inter-atrial shunt on color doppler. Dilated windsock appendage. Normal appendage flow velocity. No thrombus in left atrial appendage. ?Tricuspid?Valve: Mildly thickened leaflets. Mild to moderate transvalvular regurgitation. ?Pericardium: No pericardial effusion. Left VentricleLeft ventricle is dilated. Reduced systolic function.Right VentricleCRT leads appreciated. Freely mobile filamentous structure is attached to the lead measuring 1.1 cm. Clinical correlation recommended.Left AtriumLeft atrium is dilated. Aneurysmal septum , no inter-atrial shunt on color doppler. Dilated windsock appendage. Normal appendage flow velocity. No thrombus in left atrial appendage.Right AtriumRight atrium size is normal.Mitral ValveTented leaflets. Mild transvalvular regurgitation with multiple jets.Tricuspid ValveMildly thickened leaflets. Mild to moderate transvalvular regurgitation.Aortic ValveTricuspid. Normal excursion of the aortic valve leaflets. No transvalvular regurgitation.Pulmonic ValveValve structure is normal. No transvalvular regurgitation.Ascending AortaNormal sized aorta.PericardiumNo pericardial effusion.Study DetailsA complete transesophageal echocardiogram was performed using complete 2D, color flow Doppler and spectral Doppler. During the study the esophageal view was captured. The probe was inserted by the reservation manager. There was no probe insertion difficulty.There were 1 attempts to insert the probe. Probe in 1525. Probe out 1541. Moderate sedation was given. 4% Lidocaine was used for local oropharyngeal anesthesia. 2 mg of midazolam and 50 mcg of Fentanyl were administered during the study. There were no complications during the procedure.KR [facility] HospitalTransesophageal echo (JOSE)2024-08-12 22:17:27 * Test Item Value Reference Range Interpretation Comme nts Height (test code = 4647621195) 74 in Weight (test code = 1845940275) 284 lbs Systolic BP (test code = 5772479985) 143 mmHg Diastolic BP (test code = 9229290976) 95 mmHg Heart Rate (test code = 7840237605) 70 bpm Radiology Study observation (narrative) (test code = 24976-8) JACOB (test code = JACOB) ?Left?Ventricle: Left ventricle is dilated. Reduced systolic function. ?Right?Ventricle: 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 leads appreciated. Freely mobile filamentous structure is attached to the lead measuring 1.1 cm. Clinical correlation recommended. ?Left?Atrium: Left atrium is dilated. Aneurysmal septum , no inter-atrial shunt on color doppler. Dilated windsock appendage. Normal appendage flow velocity. No thrombus in left atrial appendage. ?Tricuspid?Valve: Mildly thickened leaflets. Mild to moderate transvalvular regurgitation. ?Pericardium: No pericardial effusion. Left VentricleLeft ventricle is dilated. Reduced systolic function.Right VentricleCRT leads appreciated. Freely mobile filamentous structure is attached to the lead measuring 1.1 cm. Clinical correlation recommended.Left AtriumLeft atrium is dilated. Aneurysmal septum , no inter-atrial shunt on color doppler. Dilated windsock appendage. Normal appendage flow velocity. No thrombus in left atrial appendage.Right AtriumRight atrium size is normal.Mitral ValveTented leaflets. Mild transvalvular regurgitation with multiple jets.Tricuspid ValveMildly thickened leaflets. Mild to moderate transvalvular regurgitation.Aortic ValveTricuspid. Normal excursion of the aortic valve leaflets. No transvalvular regurgitation.Pulmonic ValveValve structure is normal. No transvalvular regurgitation.Ascending AortaNormal sized aorta.PericardiumNo pericardial effusion.Study DetailsA complete transesophageal echocardiogram was performed using complete 2D, color flow Doppler and spectral Doppler. During the study the esophageal view was captured. The probe was inserted by the reservation manager. There was no probe insertion difficulty.There were 1 attempts to insert the probe. Probe in 1525. Probe out 1541. Moderate sedation was given. 4% Lidocaine was used for local oropharyngeal anesthesia. 2 mg of midazolam and 50 mcg of Fentanyl were administered during the study. There were no complications during the procedure.KR [facility] HospitalArterial [id number] 13:30:00Cande Marley MD ? ? 08/12/2024 ?7:52 PM Arterial Line Date/Time: 08/12/2024 7:30 AM Performed by: Cande Marley MDArterial Line Placement: ?Ultrasound- Guided: ultrasound guided ? ?Patient Location: ?OR ?Indication: continuous blood pressure monitoring and blood sampling needed ?Staff: ?Supervising Anesthesiologist: ?Garret Ugarte MD ?Resident: ?Cande Marley MDProcedure Detail: ?Catheter Size: ?20 gauge ?Catheter Length: ?1 and 3/8 inch ?Catheter Type: ?Arrow ?Seldinger Technique?: Yes ? ?Laterality: ?Right ?Site: ?Radial artery ?Line Secured: ?Tape, Tegaderm and biopatch ?Preparation: ?Guidewire removed intact and biopatch appliedEvents: ?Events: ?Patient tolerated procedure well with no complications [facility] 09:18:21* Test Item Value Reference Range Interpretation Comme nts MAGNESIUM (test code = 4187800192) 2.0 mg/dL 1.7-2.4 Lab Interpretation (test cod e = 22358-3) Normal [facility] Metabolic Panel (NA, K, CL, CO2, GLUCOSE, BUN, CREATININE, CA)2024-08-12 09:18:21* Test Item Value Reference Range Interpretation Comme nts NA (test code = 5886814803) 136 mmol/L 135-145 K (test code = 4411486808) 3.9 mmol/L 3.5-5.0 CL (test code = 8707460744) 106 mmol/L 98-108 CO2 TOTAL (test code = 2907985534) 22 mmol/L 23-31 L AGAP (test code = 3975982556) 8 2-16 BUN (test code = 3136549269) 39 mg/dL 7-23 H GLUCOSE (test code = 8424036478) 96 mg/dL 70-110 CREATININE (test code = 2160-0) 2.09 mg/dL 0.60-1.25 H CALCIUM (test code = 0453004593) 8.4 mg/dL 8.6-10.6 L eGFR (test code = 21321-1) 36.2 mL/min/1.73m2 CKD-EPI eGFR (2020). Assuming creatinine has been stable day-to-day for at least three months, the eGFR indicates Category G3b (30 - 44 mL/min/1.73 m2) Lab Interpretation (test code = 59627-3) [facility]normal [facility]esium2025-01-10 09:18:21* Test Item Value Reference Range Interpretation Comme nts MAGNESIUM (test code = 0748573499) 2.0 mg/dL 1.7-2.4 Lab Interpretation (test cod e = 05167-5) Normal [facility] (NA, K, CL, CO2, GLUCOSE, BUN, CREATININE, CA)2024-08-12 09:18:21* Test Item Value Reference Range Interpretation Comme nts NA (test code = 1320581648) 136 mmol/L 135-145 K (test code = 6950726612) 3.9 mmol/L 3.5-5.0 CL (test code = 1556887518) 106 mmol/L 98-108 CO2 TOTAL (test code = 2018901523) 22 mmol/L 23-31 L AGAP (test code = 3258850192) 8 2-16 BUN (test code = 6757844219) 39 mg/dL 7-23 H GLUCOSE (test code = 5111152836) 96 mg/dL 70-110 CREATININE (test code = 2160-0) 2.09 mg/dL 0.60-1.25 H CALCIUM (test code = 8443662079) 8.4 mg/dL 8.6-10.6 L eGFR (test code = 64032-3) 36.2 mL/min/1.73m2 CKD-EPI eGFR (2020). Assuming creatinine has been stable day-to-day for at least three months, the eGFR indicates Category G3b (30 - 44 mL/min/1.73 m2) Lab Interpretation (test code = 14631-9) [facility]normal [facility] HospitalaP[facility] (for use with Heparin Drip)2024-08-12 08:53:35* Test Item Value Reference Range Interpretation Comme [facility] APTT Patient (test code = 3173-2) 78 26-36 H Lab Interpretation (test cod e = 45514-4) [facility]normal [facility] (for use with Heparin Drip)2024-08-12 08:53:35* Test Item Value Reference Range Interpretation Comme [facility] APTT Patient (test code = 3173-2) 78 26-36 H Lab Interpretation (test cod e = 73183-5) Abnormal [facility] with Vffl9519-97-29 08:46:58* Test Item Value Reference Range Interpretation Comme nts WBC (test code = 6690-2) 5.14 4.20-10.70 RBC (test code = 789-8) 5.24 4.26-5.52 HGB (test code = 718-7) 12.8 g/dL 12.2-16.4 HCT (test code = 4544-3) 42.0 % 38.4-49.3 MCV (test code = 787-2) 80.2 fL 81.7-95.6 L MCH (test code = 785-6) 24.4 pg 26.1-32.7 L MCHC (test code = 786-4) 30.5 g/dL 31.2-35.0 L RDW-SD (test code = 95226-5) 50.0 fL 38.5-51.6 RDW-CV (test code = 788-0) 18.1 % 12.1-15.4 H PLT (test code = 777-3) 193 150-328 MPV (test code = 46617-4) 9.9 fL 9.8-13.0 NRBC/100 WBC (test code = 0964004420) 1.0 0.0-10.0 NRBC x10^3 (test code = 2196613867) 0.05 See_Comment [Automated messa ge] The system which generated this result transmitted reference range: 10*3/?L. The reference range was not used to interpret this result as normal/abnormal. GRAN MAT (NEUT) % (test code = 770-8) 47.0 % IMM GRAN % (test code = 0268793254) 0.20 % LYMPH % (test code = 736-9) 39.1 % MONO % (test code = 5905-5) 11.5 % EOS % (test code = 713-8) 1.8 % BASO % (test code = 706-2) 0.4 % GRAN MAT x10^3(ANC) (test code = 3676398382) 2.42 10*3/uL 1.99-6.95 IMM GRAN x10^3 (test code = 9032744908) 0.00-0.06 LYMPH x10^3 (test code = 731-0) 2.01 10*3/uL 1.09-3.23 MONO x10^3 (test code = 742-7) 0.59 10*3/uL 0.36-1.02 EOS x10^3 (test code = 711-2) 0.09 10*3/uL 0.06-0.53 BASO x10^3 (test code = 704-7) 0.01-0.09 Lab Interpretation (test code = 50503-6) Abnormal [facility] with Vola5051-10-11 08:46:58* Test Item Value Reference Range Interpretation Comme nts WBC (test code = 6690-2) 5.14 4.20-10.70 RBC (test code = 789-8) 5.24 4.26-5.52 HGB (test code = 718-7) 12.8 g/dL 12.2-16.4 HCT (test code = 4544-3) 42.0 % 38.4-49.3 MCV (test code = 787-2) 80.2 fL 81.7-95.6 L MCH (test code = 785-6) 24.4 pg 26.1-32.7 L MCHC (test code = 786-4) 30.5 g/dL 31.2-35.0 L RDW-SD (test code = 11566-1) 50.0 fL 38.5-51.6 RDW-CV (test code = 788-0) 18.1 % 12.1-15.4 H PLT (test code = 777-3) 193 150-328 MPV (test code = 66884-3) 9.9 fL 9.8-13.0 NRBC/100 WBC (test code = 8751251949) 1.0 0.0-10.0 NRBC x10^3 (test code = 8680037325) 0.05 See_Comment [Automated messa ge] The system which generated this result transmitted reference range: 10*3/?L. The reference range was not used to interpret this result as normal/abnormal. GRAN MAT (NEUT) % (test code = 770-8) 47.0 % IMM GRAN % (test code = 4540934312) 0.20 % LYMPH % (test code = 736-9) 39.1 % MONO % (test code = 5905-5) 11.5 % EOS % (test code = 713-8) 1.8 % BASO % (test code = 706-2) 0.4 % GRAN MAT x10^3(ANC) (test code = 1473208054) 2.42 10*3/uL 1.99-6.95 IMM GRAN x10^3 (test code = 4511374670) 0.00-0.06 LYMPH x10^3 (test code = 731-0) 2.01 10*3/uL 1.09-3.23 MONO x10^3 (test code = 742-7) 0.59 10*3/uL 0.36-1.02 EOS x10^3 (test code = 711-2) 0.09 10*3/uL 0.06-0.53 BASO x10^3 (test code = 704-7) 0.01-0.09 Lab Interpretation (test code = 05151-6) [facility]normal [facility] HospitalTransthoracic echo (TTE) Pszmxkb5013-19-98 22:54:57* Test Item Value Reference Range Interpretation Comme nts Height (test code = 1439821084) 74 in Weight (test code = 0898076245) 284 lbs Systolic BP (test code = 3126680078) 106 mmHg Diastolic BP (test code = 4335574454) 86 mmHg Heart Rate (test code = 1007636161) 71 bpm BSA (test code = 8030036278) 2.5 m2 LVIDD (test code = 7349326033) 7.50 cm Left Ventricular End Diastolic Volume by Teichholz Method (test code = 3431183) 301.3 mL IVS (test code = 6971205612) 1.21 cm Interventricular Septum Diastolic Thickness by 2D (test code = 8192851) 1.21 cm LVPWD (test code = 9169749103) 0.66 cm PW (test code = 1821136393) 0.66 cm 0.6-1.1 EF(Teich) (test code = 6084400712) 6.70 % LVIDS (test code = 4123954274) 7.30 cm Left Ventricular End Systolic Volume by Teichholz Method (test code = 2527094) 281.0 mL FS (test code = 1149415542) 3 % EF - 2D (test code = 13408701) 6.70 % Radiology Study observation (narrative) (test code = 89847-9) JACOB (test code = JACOB) ?Left?Ventricle: Left ventricle is severely dilated. There is eccentric hypertrophy. Severe global hypokinesis present. There is a small LV laminar thrombus Estimated EF is 5 - 10%. No thrombus seen. However, LV images were foreshortened, and true apex might not be fuly visualized. Left VentricleLeft ventricle is severely dilated. There is eccentric hypertrophy. Severe global hypokinesis present. There is a small LV laminar thrombus Estimated EF is 5 - 10%. No thrombus seen. However, LV images were foreshortened, and true apex might not be fuly visualized.Right VentricleNot assessed.Left AtriumNot assessed.Right AtriumNot assessed.IVC/SVCIVC was not assessed.Mitral ValveNot assessed.Tricuspid ValveNot assessed.Aortic ValveNot assessed.Pulmonic ValveNot well visualized.Ascending AortaNot well visualized.Pericardiu mNot well visualized.Study DetailsA limited echocardiogram was performed using 2D. 3 mL of Optison ultrasound enhancing agent used.Wall Scoring BaselineScore Index: 3.00The following segments are akinetic: basal anterior, basal anteroseptal, basal inferoseptal, basal inferior, basal inferolateral, basal anterolateral, mid anterior, mid anteroseptal, mid inferoseptal, mid inferior, mid inferolateral, mid anterolateral, apical anterior, apical septal, apical inferior, apical lateral and apex. [facility] HospitalTransthoracic echo (TTE) Umirybl3785-79-15 22:54:57* Test Item Value Reference Range Interpretation Comme nts Height (test code = 8331258264) 74 in Weight (test code = 1794724304) 284 lbs Systolic BP (test code = 7703674322) 106 mmHg Diastolic BP (test code = 0730377693) 86 mmHg Heart Rate (test code = 0296587133) 71 bpm BSA (test code = 7907672177) 2.5 m2 LVIDD (test code = 6186804192) 7.50 cm Left Ventricular End Diastolic Volume by Teichholz Method (test code = 2808863) 301.3 mL IVS (test code = 9858665164) 1.21 cm Interventricular Septum Diastolic Thickness by 2D (test code = 2882433) 1.21 cm LVPWD (test code = 8230132144) 0.66 cm PW (test code = 5246153134) 0.66 cm 0.6-1.1 EF(Teich) (test code = 0469633762) 6.70 % LVIDS (test code = 7468708456) 7.30 cm Left Ventricular End Systolic Volume by Teichholz Method (test code = 0599052) 281.0 mL FS (test code = 3003287526) 3 % EF - 2D (test code = 71627461) 6.70 % Radiology Study observation (narrative) (test code = 76689-2) JACOB (test code = JACOB) ?Left?Ventricle: Left ventricle is severely dilated. There is eccentric hypertrophy. Severe global hypokinesis present. There is a small LV laminar thrombus Estimated EF is 5 - 10%. No thrombus seen. However, LV images were foreshortened, and true apex might not be fuly visualized. Left VentricleLeft ventricle is severely dilated. There is eccentric hypertrophy. Severe global hypokinesis present. There is a small LV laminar thrombus Estimated EF is 5 - 10%. No thrombus seen. However, LV images were foreshortened, and true apex might not be fuly visualized.Right VentricleNot assessed.Left AtriumNot assessed.Right AtriumNot assessed.IVC/SVCIVC was not assessed.Mitral ValveNot assessed.Tricuspid ValveNot assessed.Aortic ValveNot assessed.Pulmonic ValveNot well visualized.Ascending AortaNot well visualized.Pericardiu mNot well visualized.Study DetailsA limited echocardiogram was performed using 2D. 3 mL of Optison ultrasound enhancing agent used.Wall Scoring BaselineScore Index: 3.00The following segments are akinetic: basal anterior, basal anteroseptal, basal inferoseptal, basal inferior, basal inferolateral, basal anterolateral, mid anterior, mid anteroseptal, mid inferoseptal, mid inferior, mid inferolateral, mid anterolateral, apical anterior, apical septal, apical inferior, apical lateral and apex. [facility] HospitalUric Uyai5186-72-43 17:27:48* Test Item Value Reference Range Interpretation Comme nts URIC ACID (test code = 3590459838) 8.3 mg/dL 3.6-8.0 H Lab Interpretation (test cod e = 55316-0) [facility]normal [facility] HospitalU[facility] Redf5590-83-23 17:27:48* Test Item Value Reference Range Interpretation Comme nts URIC ACID (test code = 2798543568) 8.3 mg/dL 3.6-8.0 H Lab Interpretation (test cod e = 32396-9) [facility]normal [facility] HospitalMagnesium2025-01-09 15:15:49* Test Item Value Reference Range Interpretation Comme nts MAGNESIUM (test code = 2620443416) 2.0 mg/dL 1.7-2.4 Lab Interpretation (test cod e = 54824-9) [facility] 15:15:49* Test Item Value Reference Range Interpretation Comme nts MAGNESIUM (test code = 1429701999) 2.0 mg/dL 1.7-2.4 Lab Interpretation (test cod e = 82686-3) Normal [facility]ctic Acid Whole Ujsid6931-52-45 12:39:41* Test Item Value Reference Range Interpretation Comme nts LACTIC ACID (test code = 3828783474) 1.55 mmol/L 0.50-2.20 Lab Interpretation (test cod e = 24414-8) [facility] Bcfxs1770-15-79 12:39:41* Test Item Value Reference Range Interpretation Comme nts LACTIC ACID (test code = 5952197304) 1.55 mmol/L 0.50-2.20 Lab Interpretation (test cod e = 95816-1) Normal [facility] HospitalFerritin Sncga0837-01-33 11:59:49* Test Item Value Reference Range Interpretation Comme nts FERRITIN (test code = 0050174488) 22.8 ng/mL 18.0-464.0 JACOB (test code = JACOB) Biotin has been reported to cause a negative bias, interpret results relative to patient's use of biotin. Lab Interpretation (test code = 54203-2) Normal [facility] HospitalFerriwy[facility] Elmli4746-76-69 11:59:49* Test Item Value Reference Range Interpretation Comme nts FERRITIN (test code = 3948718868) 22.8 ng/mL 18.0-464.0 JACOB (test code = JACOB) Biotin has been reported to cause a negative bias, interpret results relative to patient's use of biotin. Lab Interpretation (test code = 04732-4) Normal [facility] HospitalN-Terminal Iyd-Cgc0424-88-09 11:44:28* Test Item Value Reference Range Interpretation Comme nts NT-proBNP (test code = 09131-0) 4990 pg/mL <=125 H JACOB (test code = JACOB) Positive: Heart Failure Likely Lab Interpretation (test code = 85013-5) [facility]normal [facility] HospitalN-Terminal Sjt-Wkf5931-44-09 11:44:28* Test Item Value Reference Range Interpretation Comme nts NT-proBNP (test code = 90221-5) 4990 pg/mL <=125 H JACOB (test code = JACOB) Positive: Heart Failure Likely Lab Interpretation (test code = 54687-5) [facility]normal [facility] HospitalTroponin G2232-28-04 11:36:47* Test Item Value Reference Range Interpretation Comme nts TROPONIN I (test code = 5561855821) 0.040 ng/mL <=0.034 H JACOB (test code = JACOB) Reference (Normal) [...] of biotin. Lab Interpretation (test code = 57107-3) Abnormal [facility] R9855-56-85 11:36:47* Test Item Value Reference Range Interpretation Comme nts TROPONIN I (test code = 5342510979) 0.040 ng/mL <=0.034 H JACOB (test code = JACOB) Reference (Normal) [...] of biotin. Lab Interpretation (test code = 41783-6) Abnormal [facility] Xiplx1754-96-35 11:32:09* Test Item Value Reference Range Interpretation Comme nts IRON (test code = 5535075860) 68 ug/dL 50-160 TIBC (test code = 3469122613) 334 ug/dL 250-410 % FE SAT (test code = 3455630917) 20 % 20-50 Lab Interpretation (test cod e = 16146-1) Normal [facility] Ickjl6202-73-64 11:32:09* Test Item Value Reference Range Interpretation Comme nts IRON (test code = 8544021163) 68 ug/dL 50-160 TIBC (test code = 9419825685) 334 ug/dL 250-410 % FE SAT (test code = 6257166015) 20 % 20-50 Lab Interpretation (test cod e = 28199-4) Normal [facility] Metabolic Panel (NA, K, CL, CO2, GLUCOSE, BUN, CREATININE, CA)2024-08-11 11:32:09* Test Item Value Reference Range Interpretation Comme nts NA (test code = 1544127294) 137 mmol/L 135-145 K (test code = 8537844340) 4.1 mmol/L 3.5-5.0 CL (test code = 0407765811) 106 mmol/L 98-108 CO2 TOTAL (test code = 8963672271) 23 mmol/L 23-31 AGAP (test code = 6714012849) 8 2-16 BUN (test code = 8658738521) 40 mg/dL 7-23 H GLUCOSE (test code = 7239756053) 89 mg/dL 70-110 CREATININE (test code = 2160-0) 2.30 mg/dL 0.60-1.25 H CALCIUM (test code = 3775650819) 8.6 mg/dL 8.6-10.6 eGFR (test code = 96933-4) 32.3 mL/min/1.73m2 CKD-EPI eGFR (2020). Assuming creatinine has been stable day-to-day for at least three months, the eGFR indicates Category G3b (30 - 44 mL/min/1.73 m2) Lab Interpretation (test code = 60671-2) Abnormal [facility] Metabolic Panel (NA, K, CL, CO2, GLUCOSE, BUN, CREATININE, CA)2024-08-11 11:32:09* Test Item Value Reference Range Interpretation Comme nts NA (test code = 5228420946) 137 mmol/L 135-145 K (test code = 5560667979) 4.1 mmol/L 3.5-5.0 CL (test code = 9191108852) 106 mmol/L 98-108 CO2 TOTAL (test code = 7278498249) 23 mmol/L 23-31 AGAP (test code = 0526775404) 8 2-16 BUN (test code = 0198584123) 40 mg/dL 7-23 H GLUCOSE (test code = 2614761753) 89 mg/dL 70-110 CREATININE (test code = 2160-0) 2.30 mg/dL 0.60-1.25 H CALCIUM (test code = 1210064665) 8.6 mg/dL 8.6-10.6 eGFR (test code = 06638-7) 32.3 mL/min/1.73m2 CKD-EPI eGFR (2020). Assuming creatinine has been stable day-to-day for at least three months, the eGFR indicates Category G3b (30 - 44 mL/min/1.73 m2) Lab Interpretation (test code = 33676-9) [facility]normal [facility] (for use with Heparin Drip)2024-08-11 11:16:08* Test Item Value Reference Range Interpretation Comme [facility] APTT Patient (test code = 3173-2) 105 26-36 HH Lab Interpretation (test cod e = 22937-8) [facility]normal [facility] (for use with Heparin Drip)2024-08-11 11:16:08* Test Item Value Reference Range Interpretation Comme [facility] APTT Patient (test code = 3173-2) 105 26-36 HH Lab Interpretation (test cod e = 82415-0) [facility]normal [facility] HospitalCb without Iccb2418-49-48 11:04:03* Test Item Value Reference Range Interpretation Comme [facility] WBC (test code = 6690-2) 5.38 4.20-10.70 RBC (test code = 789-8) 5.31 4.26-5.52 HGB (test code = 718-7) 12.9 g/dL 12.2-16.4 HCT (test code = 4544-3) 42.7 % 38.4-49.3 MCH (test code = 785-6) 24.3 pg 26.1-32.7 L MCV (test code = 787-2) 80.4 fL 81.7-95.6 L MCHC (test code = 786-4) 30.2 g/dL 31.2-35.0 L PLT (test code = 777-3) 207 150-328 MPV (test code = 12917-5) 10.3 fL 9.8-13.0 RDW-CV (test code = 788-0) 17.8 % 12.1-15.4 H RDW-SD (test code = 57212-0) 50.3 fL 38.5-51.6 NRBC x10^3 (test code = 6890308430) 0.02 See_Comment [Automated messa ge] The system which generated this result transmitted reference range: 10*3/?L. The reference range was not used to interpret this result as normal/abnormal. NRBC/100 WBC (test code = 8747845857) 0.4 0.0-10.0 IPF % (test code = 8756278866) Lab Interpretation (test code = 99999-0) Abnormal [facility] without Nazs1130-35-18 11:04:03* Test Item Value Reference Range Interpretation Comme nts WBC (test code = 6690-2) 5.38 4.20-10.70 RBC (test code = 789-8) 5.31 4.26-5.52 HGB (test code = 718-7) 12.9 g/dL 12.2-16.4 HCT (test code = 4544-3) 42.7 % 38.4-49.3 MCH (test code = 785-6) 24.3 pg 26.1-32.7 L MCV (test code = 787-2) 80.4 fL 81.7-95.6 L MCHC (test code = 786-4) 30.2 g/dL 31.2-35.0 L PLT (test code = 777-3) 207 150-328 MPV (test code = 78753-8) 10.3 fL 9.8-13.0 RDW-CV (test code = 788-0) 17.8 % 12.1-15.4 H RDW-SD (test code = 96685-2) 50.3 fL 38.5-51.6 NRBC x10^3 (test code = 0012238762) 0.02 See_Comment [Automated messa ge] The system which generated this result transmitted reference range: 10*3/?L. The reference range was not used to interpret this result as normal/abnormal. NRBC/100 WBC (test code = 7421799579) 0.4 0.0-10.0 IPF % (test code = 2291027459) Lab Interpretation (test code = 26501-1) [facility]normal [facility]for use with Heparin Drip)2024-08-11 04:18:16* Test Item Value Reference Range Interpretation Comme nts APTT Patient (test code = 3173-2) -36 HH Lab Interpretation (test cod e = 26220-8) [facility]normal [facility]for use with Heparin Drip)2024-08-11 04:18:16* Test Item Value Reference Range Interpretation Comme nts APTT Patient (test code = 3173-2) 26-36 HH Lab Interpretation (test cod e = 86107-2) Abnormal [facility] HospitalLactic Acid Whole Qopor2807-53-31 04:03:38* Test Item Value Reference Range Interpretation Comme nts LACTIC ACID (test code = 3541753963) 1.78 mmol/L 0.50-2.20 Lab Interpretation (test cod e = 46700-9) [facility] Buawc5280-91-59 04:03:38* Test Item Value Reference Range Interpretation Comme nts LACTIC ACID (test code = 3767159690) 1.78 mmol/L 0.50-2.20 Lab Interpretation (test cod e = 70744-9) Normal [facility] [id number] 19:42:57* Test Item Value Reference Range Interpretation Comme nts TROPONIN I (test code = 2558020618) 0.049 ng/mL <=0.034 H JACOB (test code = JACOB) Reference (Normal) [...] of biotin. Lab Interpretation (test code = 22570-0) Abnormal [facility] R3629-88-87 19:42:57* Test Item Value Reference Range Interpretation Comme nts TROPONIN I (test code = 2528468281) 0.049 ng/mL <=0.034 H JACOB (test code = JACOB) Reference (Normal) [...] of biotin. Lab Interpretation (test code = 07875-2) Abnormal [facility] HospitalN-TERMINAL ONR-ZUR0991-92-07 19:40:35* Test Item Value Reference Range Interpretation Comme nts NT-proBNP (test code = 65113-0) 3490 pg/mL <=125 H JACOB (test code = JACOB) Positive: Heart Failure Likely Lab Interpretation (test code = 71449-9) Abnormal [facility]MINAL KAA-BWB3111-76-07 19:40:35* Test Item Value Reference Range Interpretation Comme nts NT-proBNP (test code = 89265-0) 3490 pg/mL <=125 H JACOB (test code = JACOB) Positive: Heart Failure Likely Lab Interpretation (test code = 02835-0) [facility]normal [facility] HospitalMagnesium2025-01-07 19:32:31* Test Item Value Reference Range Interpretation Comme nts MAGNESIUM (test code = 5506234390) 1.9 mg/dL 1.7-2.4 Lab Interpretation (test cod e = 62996-7) [facility] 19:32:31* Test Item Value Reference Range Interpretation Comme nts MAGNESIUM (test code = 6165989668) 1.9 mg/dL 1.7-2.4 Lab Interpretation (test cod e = 13448-5) Normal [facility] HospitalCOM. METABOLIC PANEL (03360)2024-08-09 19:32:11* Test Item Value Reference Range Interpretation Comme nts NA (test code = 0255509644) 141 mmol/L 135-145 K (test code = 8004541584) 4.4 mmol/L 3.5-5.0 CL (test code = 7753874485) 109 mmol/L 98-108 H CO2 TOTAL (test code = 4289689925) 23 mmol/L 23-31 AGAP (test code = 8609950413) 9 2-16 BUN (test code = 7340583590) 29 mg/dL 7-23 H GLUCOSE (test code = 9681548127) 113 mg/dL 70-110 H CREATININE (test code = 2160-0) 1.76 mg/dL 0.60-1.25 H TOTAL BILI (test code = 6060377266) 1.6 mg/dL 0.1-1.1 H CALCIUM (test code = 3265647157) 9.0 mg/dL 8.6-10.6 T PROTEIN (test code = 6731051183) 8.0 g/dL 6.3-8.2 ALBUMIN (test code = 8781734856) 4.3 g/dL 3.5-5.0 ALK PHOS (test code = 7476986271) 60 U/L 34-122 ALTv (test code = 1742-6) 18 U/L 5-50 AST(SGOT) (test code = 7533829448) 36 U/L 13-40 eGFR (test code = 42102-2) 44.5 mL/min/1.73m2 Lab Interpretation (test cod e = 70691-8) Abnormal [facility] HospitalCOMP[facility] METABOLIC PANEL (04302)2024-08-09 19:32:11* Test Item Value Reference Range Interpretation Comme nts NA (test code = 3595693803) 141 mmol/L 135-145 K (test code = 8025060397) 4.4 mmol/L 3.5-5.0 CL (test code = 0444680126) 109 mmol/L 98-108 H CO2 TOTAL (test code = 1379381877) 23 mmol/L 23-31 AGAP (test code = 1073713637) 9 2-16 BUN (test code = 9620036861) 29 mg/dL 7-23 H GLUCOSE (test code = 2690653430) 113 mg/dL 70-110 H CREATININE (test code = 2160-0) 1.76 mg/dL 0.60-1.25 H TOTAL BILI (test code = 8815255856) 1.6 mg/dL 0.1-1.1 H CALCIUM (test code = 2699867580) 9.0 mg/dL 8.6-10.6 T PROTEIN (test code = 9277192126) 8.0 g/dL 6.3-8.2 ALBUMIN (test code = 7347899354) 4.3 g/dL 3.5-5.0 ALK PHOS (test code = 6594054368) 60 U/L 34-122 ALTv (test code = 1742-6) 18 U/L 5-50 AST(SGOT) (test code = 6803485062) 36 U/L 13-40 eGFR (test code = 74972-5) 44.5 mL/min/1.73m2 Lab Interpretation (test cod e = 34661-9) Abnormal [facility] WITH [id number] 19:13:50* Test Item Value Reference Range Interpretation Comme nts WBC (test code = 6690-2) 4.69 4.20-10.70 RBC (test code = 789-8) 5.85 4.26-5.52 H HGB (test code = 718-7) 14.8 g/dL 12.2-16.4 HCT (test code = 4544-3) 47.8 % 38.4-49.3 MCV (test code = 787-2) 81.7 fL 81.7-95.6 MCH (test code = 785-6) 25.3 pg 26.1-32.7 L MCHC (test code = 786-4) 31.0 g/dL 31.2-35.0 L RDW-SD (test code = 05249-4) 49.9 fL 38.5-51.6 RDW-CV (test code = 788-0) 17.8 % 12.1-15.4 H PLT (test code = 777-3) 238 150-328 MPV (test code = 47583-7) 10.4 fL 9.8-13.0 NRBC/100 WBC (test code = 8175010696) 0.4 0.0-10.0 NRBC x10^3 (test code = 3985529786) 0.02 See_Comment [Automated messa ge] The system which generated this result transmitted reference range: 10*3/?L. The reference range was not used to interpret this result as normal/abnormal. GRAN MAT (NEUT) % (test code = 770-8) 42.9 % IMM GRAN % (test code = 3190485152) 0.00 % LYMPH % (test code = 736-9) 44.3 % MONO % (test code = 5905-5) 10.9 % EOS % (test code = 713-8) 1.3 % BASO % (test code = 706-2) 0.6 % GRAN MAT x10^3(ANC) (test code = 6254138192) 2.01 10*3/uL 1.99-6.95 IMM GRAN x10^3 (test code = 4601399125) 0.00-0.06 LYMPH x10^3 (test code = 731-0) 2.08 10*3/uL 1.09-3.23 MONO x10^3 (test code = 742-7) 0.51 10*3/uL 0.36-1.02 EOS x10^3 (test code = 711-2) 0.06 10*3/uL 0.06-0.53 BASO x10^3 (test code = 704-7) 0.03 10*3/uL 0.01-0.09 Lab Interpretation (test code = 66680-9) Abnormal [facility] WITH [id number] 19:13:50* Test Item Value Reference Range Interpretation Comme nts WBC (test code = 6690-2) 4.69 4.20-10.70 RBC (test code = 789-8) 5.85 4.26-5.52 H HGB (test code = 718-7) 14.8 g/dL 12.2-16.4 HCT (test code = 4544-3) 47.8 % 38.4-49.3 MCV (test code = 787-2) 81.7 fL 81.7-95.6 MCH (test code = 785-6) 25.3 pg 26.1-32.7 L MCHC (test code = 786-4) 31.0 g/dL 31.2-35.0 L RDW-SD (test code = 28163-2) 49.9 fL 38.5-51.6 RDW-CV (test code = 788-0) 17.8 % 12.1-15.4 H PLT (test code = 777-3) 238 150-328 MPV (test code = 38137-6) 10.4 fL 9.8-13.0 NRBC/100 WBC (test code = 5375991124) 0.4 0.0-10.0 NRBC x10^3 (test code = 1703725332) 0.02 See_Comment [Automated messa ge] The system which generated this result transmitted reference range: 10*3/?L. The reference range was not used to interpret this result as normal/abnormal. GRAN MAT (NEUT) % (test code = 770-8) 42.9 % IMM GRAN % (test code = 3624778819) 0.00 % LYMPH % (test code = 736-9) 44.3 % MONO % (test code = 5905-5) 10.9 % EOS % (test code = 713-8) 1.3 % BASO % (test code = 706-2) 0.6 % GRAN MAT x10^3(ANC) (test code = 0763347248) 2.01 10*3/uL 1.99-6.95 IMM GRAN x10^3 (test code = 9235242550) 0.00-0.06 LYMPH x10^3 (test code = 731-0) 2.08 10*3/uL 1.09-3.23 MONO x10^3 (test code = 742-7) 0.51 10*3/uL 0.36-1.02 EOS x10^3 (test code = 711-2) 0.06 10*3/uL 0.06-0.53 BASO x10^3 (test code = 704-7) 0.03 10*3/uL 0.01-0.09 Lab Interpretation (test code = 07758-2) [facility]normal [facility] 1 [id number] 19:13:47XR CHEST 1 VW COMPARISON: No comparison available Ordering provider: MICHELLE MIRANDA CLINICAL INDICATIONS: cough TECHNIQUE: Appropriate radiographic technique and conforming to ALARA FINDINGS: ? Marked chronic cardiomegaly since 06/01/2022 with permanent transvenouspacemaker. Otherwise the lungs areclear and without acute chest disease.[facility] 1 [id number] 19:13:47XR CHEST 1 VW COMPARISON: No comparison available Ordering provider: MICHELLE MIRANDA CLINICAL INDICATIONS: cough TECHNIQUE: Appropriate radiographic technique and conforming to ALARA FINDINGS: ? Marked chronic cardiomegaly since 06/01/2022 with permanent transvenouspacemaker. Otherwise the lungs areclear and without acute chest disease.[facility]Critical [id number] 17:27:00Michelle Miranda MD ? ? 08/10/2024 12:46 PMCritical Care Performed by: Michelle Miranda MDAuthorized by: Michelle Miranda MD ?Critical care provider statement: ?Critical care time (minutes): ?45 ?Critical care time was exclusive of: ?Separately billable procedures and treating other patients and teaching time ?Critical care was necessary to treat or prevent imminent or life- threatening deterioration of the following conditions: ?Cardiac failure ?Critical care was time spent personally by me on the following activities: ?Development of treatment plan with patient or surrogate, evaluation of patie nt's response to treatment, examination of patient, obtaining history from patient or surrogate, ordering and performing treatments and interventions, ordering and review of laboratory studies, ordering and review of radiographic studies, pulse oximetry, re-evaluation of patient's condition and review of old charts ?Care discussed with: admitting provider ?Comments: ? Due to a high probability ofclinically significant, life threatening deterioration, the patient required [...] of separately billable procedures and treating other patients.[facility] (AUT[facility]ATED)2024-08-01 22:11:49* Test Item Value Reference Range Interpretation Comme nts POCT GLU (test code = 2841299060) 92 mg/dL 70-110 Lab Interpretation (test cod e = 62388-8) Normal [facility] GLUCOSE (AUTOMATED)2024-08-01 18:45:20* Test Item Value Reference Range Interpretation Comme nts POCT GLU (test code = 6797614022) 92 mg/dL 70-110 Lab Interpretation (test cod e = 12339-9) Normal [facility] GLUCOSE (AUTOMATED)2024-08-01 14:57:50* Test Item Value Reference Range Interpretation Comme nts POCT GLU (test code = 0978485294) 96 mg/dL 70-110 Lab Interpretation (test cod e = 98442-7) Normal [facility] GLUCOSE (AUTOMATED)2024-08-01 02:24:20* Test Item Value Reference Range Interpretation Comme nts POCT GLU (test code = 6404163607) 108 mg/dL 70-110 Lab Interpretation (test cod e = 52609-8) Normal [facility] HospitalTroponin [id number] 01:39:46* Test Item Value Reference Range Interpretation Comme nts TROPONIN I (test code = 5787500312) 0.049 ng/mL <=0.034 H JACOB (test code = JACOB) Reference (Normal) [...] of biotin. Lab Interpretation (test code = 02303-9) [facility]normal [facility]inal Jtf-[id number] 01:39:46* Test Item Value Reference Range Interpretation Comme nts NT-proBNP (test code = 55674-8) 2590 pg/mL <=125 H JACOB (test code = JACOB) Positive: Heart Failure Likely Lab Interpretation (test code = 73921-6) Abnormal [facility]. Metabolic Panel (24192)2024-08-01 01:26:49* Test Item Value Reference Range Interpretation Comme nts NA (test code = 8025451554) 141 mmol/L 135-145 K (test code = 5618500847) 4.5 mmol/L 3.5-5.0 CL (test code = 1825786105) 110 mmol/L 98-108 H CO2 TOTAL (test code = 6885006810) 24 mmol/L 23-31 AGAP (test code = 3940855700) 7 2-16 BUN (test code = 5001165879) 26 mg/dL 7-23 H GLUCOSE (test code = 0782688976) 95 mg/dL 70-110 CREATININE (test code = 2160-0) 1.36 mg/dL 0.60-1.25 H TOTAL BILI (test code = 2188033168) 0.8 mg/dL 0.1-1.1 CALCIUM (test code = 6443157777) 9.1 mg/dL 8.6-10.6 T PROTEIN (test code = 6488908698) 6.8 g/dL 6.3-8.2 ALBUMIN (test code = 4426442930) 3.6 g/dL 3.5-5.0 ALK PHOS (test code = 3161144122) 71 U/L 34-122 ALTv (test code = 1742-6) 19 U/L 5-50 AST(SGOT) (test code = 1062021884) 28 U/L 13-40 eGFR (test code = 06344-2) 60.7 mL/min/1.73m2 CKD-EPI eGFR (2020). Assuming creatinine has been stable day-to-day for at least three months, the eGFR indicates Category G2 (60 - 89 mL/min/1.73 m2) Lab Interpretation (test code = 94233-9) [facility]normal [facility] HospitalMagnesium2024-12-30 01:26:49* Test Item Value Reference Range Interpretation Comme nts MAGNESIUM (test code = 1764478366) 1.7 mg/dL 1.7-2.4 Lab Interpretation (test cod e = 53686-8) Normal [facility] HospitalProthrombin Time / [id number] 01:06:47* Test Item Value Reference Range Interpretation Comme [facility] PROTIME PATIENT (test code = 5964-2) 12.4 10.1-12.6 INR (test code = 6301-6) 1.1 Normal INR <1.1; Warfarin Therapeutic range 2.0 to 3.0 or 2.5 to 3.5, depending upon the indications. Lab Interpretation (test code = 56704-6) Normal [facility] HospitalaPTT2024-12-30 01:06:47* Test Item Value Reference Range Interpretation Comme [facility] APTT Patient (test code = 3173-2) 29 -36 Lab Interpretation (test cod e = 84949-1) Normal [facility] HospitalCb with [id number] 00:57:44* Test Item Value Reference Range Interpretation Comme [facility] WBC (test code = 6690-2) 6.40 4.20-10.70 RBC (test code = 789-8) 5.75 4.26-5.52 H HGB (test code = 718-7) 14.1 g/dL 12.2-16.4 HCT (test code = 4544-3) 45.0 % 38.4-49.3 MCV (test code = 787-2) 78.3 fL 81.7-95.6 L MCH (test code = 785-6) 24.5 pg 26.1-32.7 L MCHC (test code = 786-4) 31.3 g/dL 31.2-35.0 RDW-SD (test code = 56831-5) 47.4 fL 38.5-51.6 RDW-CV (test code = 788-0) 17.5 % 12.1-15.4 H PLT (test code = 777-3) 239 150-328 MPV (test code = 16109-8) 10.1 fL 9.8-13.0 NRBC/100 WBC (test code = 1183932369) 0.0 0.0-10.0 NRBC x10^3 (test code = 2632688895) See_Comment [Automated messa ge] The system which generated this result transmitted reference range: 10*3/?L. The reference range was not used to interpret this result as normal/abnormal. GRAN MAT (NEUT) % (test code = 770-8) 50.4 % IMM GRAN % (test code = 5294495305) 0.20 % LYMPH % (test code = 736-9) 37.8 % MONO % (test code = 5905-5) 9.5 % EOS % (test code = 713-8) 1.6 % BASO % (test code = 706-2) 0.5 % GRAN MAT x10^3(ANC) (test code = 4698856108) 3.23 10*3/uL 1.99-6.95 IMM GRAN x10^3 (test code = 2014446317) 0.00-0.06 LYMPH x10^3 (test code = 731-0) 2.42 10*3/uL 1.09-3.23 MONO x10^3 (test code = 742-7) 0.61 10*3/uL 0.36-1.02 EOS x10^3 (test code = 711-2) 0.10 10*3/uL 0.06-0.53 BASO x10^3 (test code = 704-7) 0.03 10*3/uL 0.01-0.09 Lab Interpretation (test code = 78710-7) Abnormal [facility] Metabolic Panel (NA, K, CL, CO2, GLUCOSE, BUN, CREATININE, CA)2024-07-21 20:13:09* Test Item Value Reference Range Interpretation Comme nts NA (test code = 8828029218) 133 mmol/L 135-145 L K (test code = 3169740255) 4.4 mmol/L 3.5-5.0 CL (test code = 7972935235) 97 mmol/L 98-108 L CO2 TOTAL (test code = 6878891406) 31 mmol/L 23-31 AGAP (test code = 4479871694) 5 2-16 BUN (test code = 7595902457) 64 mg/dL 7-23 H GLUCOSE (test code = 6898041667) 134 mg/dL 70-110 H CREATININE (test code = 2160-0) 2.33 mg/dL 0.60-1.25 H CALCIUM (test code = 1885116943) 8.7 mg/dL 8.6-10.6 eGFR (test code = 59414-9) 31.8 mL/min/1.73m2 CKD-EPI eGFR (2020). Assuming creatinine has been stable day-to-day for at least three months, the eGFR indicates Category G3b (30 - 44 mL/min/1.73 m2) Lab Interpretation (test code = 49066-4) Abnormal [facility] Metabolic Panel (NA, K, CL, CO2, GLUCOSE, BUN, CREATININE, CA)2024-07-21 20:13:09* Test Item Value Reference Range Interpretation Comme nts NA (test code = 3798784730) 133 mmol/L 135-145 L K (test code = 8405290649) 4.4 mmol/L 3.5-5.0 CL (test code = 4158632597) 97 mmol/L 98-108 L CO2 TOTAL (test code = 1703297692) 31 mmol/L 23-31 AGAP (test code = 4416692891) 5 2-16 BUN (test code = 6637158130) 64 mg/dL 7-23 H GLUCOSE (test code = 4221430512) 134 mg/dL 70-110 H CREATININE (test code = 2160-0) 2.33 mg/dL 0.60-1.25 H CALCIUM (test code = 7447953777) 8.7 mg/dL 8.6-10.6 eGFR (test code = 34945-9) 31.8 mL/min/1.73m2 CKD-EPI eGFR (2020). Assuming creatinine has been stable day-to-day for at least three months, the eGFR indicates Category G3b (30 - 44 mL/min/1.73 m2) Lab Interpretation (test code = 18050-7) Abnormal [facility] GLUCOSE (AUTOMATED)2024-07-21 17:07:43* Test Item Value Reference Range Interpretation Comme nts POCT GLU (test code = 3499844027) 162 mg/dL 70-110 H Lab Interpretation (test cod e = 98894-8) Abnormal [facility] GLUCOSE (AUTOMATED)2024-07-21 17:07:43* Test Item Value Reference Range Interpretation Comme nts POCT GLU (test code = 4600876331) 162 mg/dL 70-110 H Lab Interpretation (test cod e = 88759-4) Abnormal [facility] GLUCOSE (AUTOMATED)2024-07-21 15:12:14* Test Item Value Reference Range Interpretation Comme nts POCT GLU (test code = 1582232006) 115 mg/dL 70-110 H Lab Interpretation (test cod e = 69575-4) Abnormal [facility] GLUCOSE (AUTOMATED)2024-07-21 15:12:14* Test Item Value Reference Range Interpretation Comme nts POCT GLU (test code = 4366671527) 115 mg/dL 70-110 H Lab Interpretation (test cod e = 05145-2) Abnormal [facility] Metabolic Panel (NA, K, CL, CO2, GLUCOSE, BUN, CREATININE, CA)2024-07-21 10:02:41* Test Item Value Reference Range Interpretation Comme nts NA (test code = 1218524280) 134 mmol/L 135-145 L K (test code = 7156893520) 4.4 mmol/L 3.5-5.0 CL (test code = 1573359473) 97 mmol/L 98-108 L CO2 TOTAL (test code = 6829682836) 27 mmol/L 23-31 AGAP (test code = 5677734923) 10 2-16 BUN (test code = 6219832165) 73 mg/dL 7-23 H GLUCOSE (test code = 4723389903) 118 mg/dL 70-110 H CREATININE (test code = 2160-0) 2.38 mg/dL 0.60-1.25 H CALCIUM (test code = 9251381079) 8.8 mg/dL 8.6-10.6 eGFR (test code = 05901-6) 31.0 mL/min/1.73m2 CKD-EPI eGFR (2020). Assuming creatinine has been stable day-to-day for at least three months, the eGFR indicates Category G3b (30 - 44 mL/min/1.73 m2) Lab Interpretation (test code = 62090-6) [facility]normal [facility] Hospital[facility]esium2024-12-19 10:02:41* Test Item Value Reference Range Interpretation Comme nts MAGNESIUM (test code = 9347633099) 2.7 mg/dL 1.7-2.4 H Lab Interpretation (test cod e = 08961-9) [facility] ([facility], K, CL, CO2, GLUCOSE, BUN, CREATININE, CA)2024-07-21 10:02:41* Test Item Value Reference Range Interpretation Comme nts NA (test code = 9135564221) 134 mmol/L 135-145 L K (test code = 2184643313) 4.4 mmol/L 3.5-5.0 CL (test code = 2235558487) 97 mmol/L 98-108 L CO2 TOTAL (test code = 6742034213) 27 mmol/L 23-31 AGAP (test code = 3602182496) 10 2-16 BUN (test code = 7433073676) 73 mg/dL 7-23 H GLUCOSE (test code = 4446291067) 118 mg/dL 70-110 H CREATININE (test code = 2160-0) 2.38 mg/dL 0.60-1.25 H CALCIUM (test code = 8654560745) 8.8 mg/dL 8.6-10.6 eGFR (test code = 72175-2) 31.0 mL/min/1.73m2 CKD-EPI eGFR (2020). Assuming creatinine has been stable day-to-day for at least three months, the eGFR indicates Category G3b (30 - 44 mL/min/1.73 m2) Lab Interpretation (test code = 74378-5) [facility]normal [facility]2024-12-19 10:02:41* Test Item Value Reference Range Interpretation Comme nts MAGNESIUM (test code = 4994309467) 2.7 mg/dL 1.7-2.4 H Lab Interpretation (test cod e = 74297-6) Abnormal [facility] HospitalProthrombin Time/[id number] 09:57:58* Test Item Value Reference Range Interpretation Comme nts PROTIME PATIENT (test code = 5964-2) 15.7 10.1-12.6 H INR (test code = 6301-6) 1.4 Normal INR <1.1; Warfarin Therapeutic range 2.0 to 3.0 or 2.5 to 3.5, depending upon the indications. Lab Interpretation (test code = 61884-6) Abnormal [facility] HospitalProthrombin Time/[id number] 09:57:58* Test Item Value Reference Range Interpretation Comme nts PROTIME PATIENT (test code = 5964-2) 15.7 10.1-12.6 H INR (test code = 6301-6) 1.4 Normal INR <1.1; Warfarin Therapeutic range 2.0 to 3.0 or 2.5 to 3.5, depending upon the indications. Lab Interpretation (test code = 89115-4) Abnormal [facility] without Iqnb5500-71-59 09:52:55* Test Item Value Reference Range Interpretation Comme nts WBC (test code = 6690-2) 5.19 4.20-10.70 RBC (test code = 789-8) 5.83 4.26-5.52 H HGB (test code = 718-7) 14.9 g/dL 12.2-16.4 HCT (test code = 4544-3) 47.0 % 38.4-49.3 MCH (test code = 785-6) 25.6 pg 26.1-32.7 L MCV (test code = 787-2) 80.6 fL 81.7-95.6 L MCHC (test code = 786-4) 31.7 g/dL 31.2-35.0 PLT (test code = 777-3) 201 150-328 MPV (test code = 19441-3) 11.1 fL 9.8-13.0 RDW-CV (test code = 788-0) 17.8 % 12.1-15.4 H RDW-SD (test code = 58355-7) 49.0 fL 38.5-51.6 NRBC x10^3 (test code = 0100002615) See_Comment [Automated messa ge] The system which generated this result transmitted reference range: 10*3/?L. The reference range was not used to interpret this result as normal/abnormal. NRBC/100 WBC (test code = 3365185812) 0.0 0.0-10.0 IPF % (test code = 3298164409) Lab Interpretation (test code = 30448-9) Abnormal [facility] without Bwto1372-85-60 09:52:55* Test Item Value Reference Range Interpretation Comme nts WBC (test code = 6690-2) 5.19 4.20-10.70 RBC (test code = 789-8) 5.83 4.26-5.52 H HGB (test code = 718-7) 14.9 g/dL 12.2-16.4 HCT (test code = 4544-3) 47.0 % 38.4-49.3 MCH (test code = 785-6) 25.6 pg 26.1-32.7 L MCV (test code = 787-2) 80.6 fL 81.7-95.6 L MCHC (test code = 786-4) 31.7 g/dL 31.2-35.0 PLT (test code = 777-3) 201 150-328 MPV (test code = 93394-1) 11.1 fL 9.8-13.0 RDW-CV (test code = 788-0) 17.8 % 12.1-15.4 H RDW-SD (test code = 58546-3) 49.0 fL 38.5-51.6 NRBC x10^3 (test code = 1659205890) See_Comment [Automated messa ge] The system which generated this result transmitted reference range: 10*3/?L. The reference range was not used to interpret this result as normal/abnormal. NRBC/100 WBC (test code = 8753612354) 0.0 0.0-10.0 IPF % (test code = 9974269941) Lab Interpretation (test code = 36567-2) Abnormal [facility] GLUCOSE (AUTOMATED)2024-07-21 02:52:15* Test Item Value Reference Range Interpretation Comme nts POCT GLU (test code = 2973519576) 116 mg/dL 70-110 H Lab Interpretation (test cod e = 38065-2) Abnormal [facility] GLUCOSE (AUTOMATED)2024-07-21 02:52:15* Test Item Value Reference Range Interpretation Comme nts POCT GLU (test code = 2897473739) 116 mg/dL 70-110 H Lab Interpretation (test cod e = 51002-4) Abnormal [facility] GLUCOSE (AUTOMATED)2024-07-20 22:28:44* Test Item Value Reference Range Interpretation Comme nts POCT GLU (test code = 1598995875) 98 mg/dL 70-110 Lab Interpretation (test cod e = 11847-5) Normal [facility] GLUCOSE (AUTOMATED)2024-07-20 22:28:44* Test Item Value Reference Range Interpretation Comme nts POCT GLU (test code = 9388373556) 98 mg/dL 70-110 Lab Interpretation (test cod e = 94238-7) Normal [facility] Hkf-Fht9979-01-18 17:30:28* Test Item Value Reference Range Interpretation Comme nts NT-proBNP (test code = 46604-7) 1580 pg/mL <=125 H JACOB (test code = JACOB) Positive: Heart Failure Likely Lab Interpretation (test code = 38122-9) Abnormal [facility] Nqc-[id number] 17:30:28* Test Item Value Reference Range Interpretation Comme nts NT-proBNP (test code = 39575-2) 1580 pg/mL <=125 H JACOB (test code = JACOB) Positive: Heart Failure Likely Lab Interpretation (test code = 21147-9) Abnormal [facility] GLUCOSE (AUTOMATED)2024-07-20 17:20:38* Test Item Value Reference Range Interpretation Comme nts POCT GLU (test code = 2310129527) 117 mg/dL 70-110 H Lab Interpretation (test cod e = 73258-4) Abnormal [facility] GLUCOSE (AUTOMATED)2024-07-20 17:20:38* Test Item Value Reference Range Interpretation Comme nts POCT GLU (test code = 4276843470) 117 mg/dL 70-110 H Lab Interpretation (test cod e = 46025-8) Abnormal [facility] GLUCOSE (AUTOMATED)2024-07-20 15:24:41* Test Item Value Reference Range Interpretation Comme nts POCT GLU (test code = 6188349063) 114 mg/dL 70-110 H Lab Interpretation (test cod e = 10514-3) Abnormal [facility] GLUCOSE (AUTOMATED)2024-07-20 15:24:41* Test Item Value Reference Range Interpretation Comme nts POCT GLU (test code = 2700969207) 114 mg/dL 70-110 H Lab Interpretation (test cod e = 43225-4) Abnormal [facility] HospitalLacaic Acid Whole Rdvkp2046-58-12 14:28:46* Test Item Value Reference Range Interpretation Comme nts LACTIC ACID (test code = 6103264990) 1.71 mmol/L 0.50-2.20 Lab Interpretation (test cod e = 18708-1) Normal [facility] HospitalLactic Acid Whole Vozep8746-41-78 14:28:46* Test Item Value Reference Range Interpretation Comme nts LACTIC ACID (test code = 2043040901) 1.71 mmol/L 0.50-2.20 Lab Interpretation (test cod e = 58350-4) Normal [facility] Metabolic Panel (NA, K, CL, CO2, GLUCOSE, BUN, CREATININE, CA)2024-07-20 13:52:53* Test Item Value Reference Range Interpretation Comme nts NA (test code = 9067850632) 134 mmol/L 135-145 L K (test code = 6149097116) 4.6 mmol/L 3.5-5.0 CL (test code = 4821214510) 98 mmol/L 98-108 CO2 TOTAL (test code = 9533757795) 27 mmol/L 23-31 AGAP (test code = 2571381737) 9 2-16 BUN (test code = 1373598233) 63 mg/dL 7-23 H GLUCOSE (test code = 1096249361) 102 mg/dL 70-110 CREATININE (test code = 2160-0) 2.60 mg/dL 0.60-1.25 H CALCIUM (test code = 8438774997) 9.0 mg/dL 8.6-10.6 eGFR (test code = 50191-5) 27.9 mL/min/1.73m2 CKD-EPI eGFR (2020). Assuming creatinine has been stable day-to-day for at least three months, the eGFR indicates Category G4 (15 - 29 mL/min/1.73 m2) Lab Interpretation (test code = 04598-1) [facility]esium2024-12-18 13:52:53* Test Item Value Reference Range Interpretation Comme nts MAGNESIUM (test code = 0214850818) 2.6 mg/dL 1.7-2.4 H Lab Interpretation (test cod e = 06675-3) Abnormal [facility] Metabolic Panel (NA, K, CL, CO2, GLUCOSE, BUN, CREATININE, CA)2024-07-20 13:52:53* Test Item Value Reference Range Interpretation Comme nts NA (test code = 8077480641) 134 mmol/L 135-145 L K (test code = 1462079377) 4.6 mmol/L 3.5-5.0 CL (test code = 0531871386) 98 mmol/L 98-108 CO2 TOTAL (test code = 1441381868) 27 mmol/L 23-31 AGAP (test code = 9431542319) 9 2-16 BUN (test code = 7606147962) 63 mg/dL 7-23 H GLUCOSE (test code = 1436883382) 102 mg/dL 70-110 CREATININE (test code = 2160-0) 2.60 mg/dL 0.60-1.25 H CALCIUM (test code = 9536369977) 9.0 mg/dL 8.6-10.6 eGFR (test code = 28885-8) 27.9 mL/min/1.73m2 CKD-EPI eGFR (2020). Assuming creatinine has been stable day-to-day for at least three months, the eGFR indicates Category G4 (15 - 29 mL/min/1.73 m2) Lab Interpretation (test code = 57765-4) [facility]esium2024-12-18 13:52:53* Test Item Value Reference Range Interpretation Comme [facility] MAGNESIUM (test code = 2386092384) 2.6 mg/dL 1.7-2.4 H Lab Interpretation (test cod e = 27658-8) Abnormal [facility] HospitalProthrombin Time/[id number] 11:35:40* Test Item Value Reference Range Interpretation Comme [facility] PROTIME PATIENT (test code = 5964-2) 13.5 10.1-12.6 H INR (test code = 6301-6) 1.2 Normal INR <1.1; Warfarin Therapeutic range 2.0 to 3.0 or 2.5 to 3.5, depending upon the indications. Lab Interpretation (test code = 26793-8) Abnormal [facility] HospitalaPTT (for use with Heparin Drip)2024-07-20 11:35:40* Test Item Value Reference Range Interpretation Comme [facility] APTT Patient (test code = 3173-2) 107 26-36 HH Lab Interpretation (test cod e = 68716-9) Abnormal [facility] HospitalProthrombin Time/[id number] 11:35:40* Test Item Value Reference Range Interpretation Comme [facility] PROTIME PATIENT (test code = 5964-2) 13.5 10.1-12.6 H INR (test code = 6301-6) 1.2 Normal INR <1.1; Warfarin Therapeutic range 2.0 to 3.0 or 2.5 to 3.5, depending upon the indications. Lab Interpretation (test code = 23751-7) Abnormal [facility] (for use with Heparin Drip)2024-07-20 11:35:40* Test Item Value Reference Range Interpretation Comme [facility] APTT Patient (test code = 3173-2) 107 26-36 HH Lab Interpretation (test cod e = 40271-4) [facility]normal [facility] HospitalCbc without [id number] 11:27:30* Test Item Value Reference Range Interpretation Comme nts WBC (test code = 6690-2) 6.03 4.20-10.70 RBC (test code = 789-8) 6.13 4.26-5.52 H HGB (test code = 718-7) 15.2 g/dL 12.2-16.4 HCT (test code = 4544-3) 47.8 % 38.4-49.3 MCH (test code = 785-6) 24.8 pg 26.1-32.7 L MCV (test code = 787-2) 78.0 fL 81.7-95.6 L MCHC (test code = 786-4) 31.8 g/dL 31.2-35.0 PLT (test code = 777-3) 218 150-328 MPV (test code = 45918-2) 9.8 fL 9.8-13.0 RDW-CV (test code = 788-0) 18.2 % 12.1-15.4 H RDW-SD (test code = 18618-6) 48.3 fL 38.5-51.6 NRBC x10^3 (test code = 2553732035) See_Comment [Automated messa ge] The system which generated this result transmitted reference range: 10*3/?L. The reference range was not used to interpret this result as normal/abnormal. NRBC/100 WBC (test code = 2323147324) 0.0 0.0-10.0 IPF % (test code = 9903793291) Lab Interpretation (test code = 93282-1) [facility]normal [facility] without Cdmo8529-31-28 11:27:30* Test Item Value Reference Range Interpretation Comme nts WBC (test code = 6690-2) 6.03 4.20-10.70 RBC (test code = 789-8) 6.13 4.26-5.52 H HGB (test code = 718-7) 15.2 g/dL 12.2-16.4 HCT (test code = 4544-3) 47.8 % 38.4-49.3 MCH (test code = 785-6) 24.8 pg 26.1-32.7 L MCV (test code = 787-2) 78.0 fL 81.7-95.6 L MCHC (test code = 786-4) 31.8 g/dL 31.2-35.0 PLT (test code = 777-3) 218 150-328 MPV (test code = 24922-2) 9.8 fL 9.8-13.0 RDW-CV (test code = 788-0) 18.2 % 12.1-15.4 H RDW-SD (test code = 32881-3) 48.3 fL 38.5-51.6 NRBC x10^3 (test code = 5718719821) See_Comment [Automated messa ge] The system which generated this result transmitted reference range: 10*3/?L. The reference range was not used to interpret this result as normal/abnormal. NRBC/100 WBC (test code = 4898829562) 0.0 0.0-10.0 IPF % (test code = 4874936595) Lab Interpretation (test code = 62588-9) [facility]normal [facility] HospitalProthrombin Time (PT) / [id number] 05:54:36 * Test Item Value Reference Range Interpretation Comme nts PROTIME PATIENT (test code = 5964-2) 12.4 10.1-12.6 INR (test code = 6301-6) 1.1 Normal INR <1.1; Warfarin Therapeutic range 2.0 to 3.0 or 2.5 to 3.5, depending upon the indications. Lab Interpretation (test code = 58793-2) [facility]* Test Item Value Reference Range Interpretation Comme nts APTT Patient (test code = 3173-2) 32 36 Lab Interpretation (test cod e = 79948-0) Normal [facility] HospitalProthrombin Time (PT) / [id number] 05:54:36 * Test Item Value Reference Range Interpretation Comme nts PROTIME PATIENT (test code = 5964-2) 12.4 10.1-12.6 INR (test code = 6301-6) 1.1 Normal INR <1.1; Warfarin Therapeutic range 2.0 to 3.0 or 2.5 to 3.5, depending upon the indications. Lab Interpretation (test code = 29358-4) Normal [facility]2024-12-18 05:54:36* Test Item Value Reference Range Interpretation Comme nts APTT Patient (test code = 3173-2) 32 -36 Lab Interpretation (test cod e = 59429-2) Normal [facility] GLUCOSE (AUTOMATED)2024-07-20 04:28:13* Test Item Value Reference Range Interpretation Comme nts POCT GLU (test code = 2266609381) 127 mg/dL 70-110 H Lab Interpretation (test cod e = 91302-9) Abnormal [facility] GLUCOSE (AUTOMATED)2024-07-20 04:28:13* Test Item Value Reference Range Interpretation Comme nts POCT GLU (test code = 6160831154) 127 mg/dL 70-110 H Lab Interpretation (test cod e = 62512-1) [facility]normal [facility] HospitalCardiovascular Shsvwjykblluvdr5376-02-22 00:09:30[facility] Heart Cath Bryan Parada Date of Service: 07/19/2024 ?6:01 PM Attending Physician:Vernon Weller: Dr. Shah Physician: Dr. Rico Procedures Performed:Right Heart Cath: CTP 06918 Indication/Diagnosis: congestive heart failure Consent: Risks, benefits, altern atives and complications of the procedure discussed with the patient, who understood and agreed to proceed. Aseptic technique: Chlorprep Local Anesthesia: 1% lidocaine without epinephrine Sedation: None Access site: right internal jugular vein Closure Method: Manual Compression Sterile dressing: yes Complications: none Procedures: The patient arrived the clinical laboratory scientist in stable condition. After patient identification/verification, the patient was thereafter transferred onto the clinical laboratory scientist table. ?After administering sedation, Time Out was done. Using modified Seldinger technique, the Right internal jugular vein was accessed using a micropuncture kit. The access was upgraded a 7Fr sheath. A [place] Catheter was then prepped and advanced through the right IJ into the RA. Selective right heart catheterization was then done. Thereafter cardiac output/index was done. RHC: RA mean 6 mmHgRV 37/10 leJdDY53/22 mmHg (mean PA 28 mmHg)PCWP mean 17 mmHgCO 3.71 L/min (Jennifer's method)CI 1.48 L/min/m2 (Jennifer's m ethod)CO 3.623 L/min (Thermodilution technique)CI 1.45 L/min/m2 (Thermodilution technique)TPG 11 mmHgPVR 3.03 Posey Units PA sat: 55 %RA sat: 56% Post-Procedure Sedation AddendumNo sedation was givenComplications: None ?Impression:Mildly elevated filling pressures Low CO/CI Plan:Monitor on Telemetry Management as per primary Team. Hold diuresis today. 250 NS given as per HF in light normal CVPFindings and plan discussed with patient Dr. Weller, Faculty, was present for the entire procedure. Jani Weller MD 07/19/2024 6:01 PM ?[facility] Lung ventilation and ipsbjoela0146-14-08 18:11:17LUNG VENTILATION/PERFUSION (VQ) SCAN INDICATION: Chest pain, nonspecific TECHNIQUE: After the administration of 10 mCi Xe-133 gas, first-breath,equilibrium, and washout images were gathered. ?The patient then receivedan intravenous injection of 3.2 mCi of Tc99m MAA, and a 6-view lungperfusion scan was obtained. ?Comparison made with chest x-ray from07/13/2024. FINDINGS: The distribution of lung ventilation is normal. ?No significant residualtracer trapping is seen during the washout phase. No mismatched segmental or subsegmental perfusion defect identified. Largeimpression on the left base caused by cardiomegaly noted in ventilation andperfusion imaging.[facility] Lung ventilation and poobuoiha6881-35-21 18:11:17LUNG VENTILATION/PERFUSION (VQ) SCAN INDICATION: Chest pain, nonspecific TECHNIQUE: After the administration of 10 mCi Xe-133 gas, first-breath,equilibrium, and washout images were gathered. ?The patient then receivedan intravenous injection of 3.2 mCi of Tc99m MAA, and a 6- view lungperfusion scan was obtained. ?Comparison made with chest x-ray from07/13/2024. FINDINGS: The distribution of lung ventilation is normal. ?No significant residualtracer trapping is seen during the washout phase. No mi smatched segmental or subsegmental perfusion defect identified. Largeimpression on the left base caused by cardiomegaly noted in ventilation andperfusion imaging.[facility] Lung ventilation and perfusion 2024-07-19 18:11:17LUNG VENTILATION/PERFUSION (VQ) SCAN INDICATION: Chest pain, nonspecific TECHNIQUE: After the administration of 10 mCi Xe-133 gas, first- breath,equilibrium, and washout images were gathered. ?The patient then receivedan intravenous injection of 3.2 mCi of Tc99m MAA, and a 6-view lungperfusion scan was obtained. ?Comparison made with chest x-ray from07/13/2024. FINDINGS: The distribution of lung ventilation is normal. ?No significant residualtracer trapping is seen during the washout phase. No mi smatched segmental or subsegmental perfusion defect identified. Largeimpression on the left base caused by cardiomegaly noted in ventilation andperfusion imaging.[facility] GLUCOSE (AUTOMATED)2024-07-19 18:07:11* Test Item Value Reference Range Interpretation Comme [facility] POCT GLU (test code = 1459058827) 94 mg/dL 70-110 Lab Interpretation (test cod e = 26306-8) Normal [facility] GLUCOSE (AUTOMATED)2024-07-19 18:07:11* Test Item Value Reference Range Interpretation Comme [facility] POCT GLU (test code = 6780715524) 94 mg/dL 70-110 Lab Interpretation (test cod e = 81619-3) Normal [facility] GLUCOSE (AUTOMATED)2024-07-19 18:07:11* Test Item Value Reference Range Interpretation Comme nts POCT GLU (test code = 4861561770) 94 mg/dL 70-110 Lab Interpretation (test cod e = 44199-3) Normal [facility] GLUCOSE (AUTOMATED)2024-07-19 14:21:05* Test Item Value Reference Range Interpretation Comme nts POCT GLU (test code = 7040502343) 100 mg/dL 70-110 Lab Interpretation (test cod e = 04017-4) Normal [facility] GLUCOSE (AUTOMATED)2024-07-19 14:21:05* Test Item Value Reference Range Interpretation Comme nts POCT GLU (test code = 6856572310) 100 mg/dL 70-110 Lab Interpretation (test cod e = 67947-7) Normal [facility] GLUCOSE (AUTOMATED)2024-07-19 14:21:05* Test Item Value Reference Range Interpretation Comme nts POCT GLU (test code = 5021305843) 100 mg/dL 70-110 Lab Interpretation (test cod e = 24578-9) Normal [facility] Metabolic Panel (NA, K, CL, CO2, GLUCOSE, BUN, CREATININE, CA)2024-07-19 12:30:39* Test Item Value Reference Range Interpretation Comme nts NA (test code = 6049641624) 135 mmol/L 135-145 K (test code = 1465554820) 5.5 mmol/L 3.5-5.0 H Slight hemolysis CL (test code = 3444521930) 97 mmol/L 98-108 L CO2 TOTAL (test code = 6106965872) 23 mmol/L 23-31 AGAP (test code = 9543727056) 15 2-16 BUN (test code = 9223640628) 53 mg/dL 7-23 H Slight hemolysis GLUCOSE (test code = 6848542848) 106 mg/dL 70-110 CREATININE (test code = 2160-0) 2.83 mg/dL 0.60-1.25 H CALCIUM (test code = 8262542671) 9.6 mg/dL 8.6-10.6 eGFR (test code = 97621-8) 25.2 mL/min/1.73m2 CKD-EPI eGFR (2020). Assuming creatinine has been stable day-to-day for at least three months, the eGFR indicates Category G4 (15 - 29 mL/min/1.73 m2) Lab Interpretation (test code = 94003-4) Abnormal [facility]2024-12-17 12:30:39* Test Item Value Reference Range Interpretation Comme nts MAGNESIUM (test code = 0928199912) 2.5 mg/dL 1.7-2.4 H Lab Interpretation (test cod e = 71874-5) Abnormal [facility] Metabolic Panel (NA, K, CL, CO2, GLUCOSE, BUN, CREATININE, CA)2024-07-19 12:30:39* Test Item Value Reference Range Interpretation Comme nts NA (test code = 6605155260) 135 mmol/L 135-145 K (test code = 7261442695) 5.5 mmol/L 3.5-5.0 H Slight hemolysis CL (test code = 3519354367) 97 mmol/L 98-108 L CO2 TOTAL (test code = 9808497615) 23 mmol/L 23-31 AGAP (test code = 2493332401) 15 2-16 BUN (test code = 6069887278) 53 mg/dL 7-23 H Slight hemolysis GLUCOSE (test code = 6266548631) 106 mg/dL 70-110 CREATININE (test code = 2160-0) 2.83 mg/dL 0.60-1.25 H CALCIUM (test code = 0059420958) 9.6 mg/dL 8.6-10.6 eGFR (test code = 38835-6) 25.2 mL/min/1.73m2 CKD-EPI eGFR (2020). Assuming creatinine has been stable day-to-day for at least three months, the eGFR indicates Category G4 (15 - 29 mL/min/1.73 m2) Lab Interpretation (test code = 00328-4) Abnormal [facility]2024-12-17 12:30:39* Test Item Value Reference Range Interpretation Comme nts MAGNESIUM (test code = 2314340298) 2.5 mg/dL 1.7-2.4 H Lab Interpretation (test cod e = 46384-6) Abnormal [facility] Metabolic Panel (NA, K, CL, CO2, GLUCOSE, BUN, CREATININE, CA)2024-07-19 12:30:39* Test Item Value Reference Range Interpretation Comme nts NA (test code = 3670181585) 135 mmol/L 135-145 K (test code = 3545968426) 5.5 mmol/L 3.5-5.0 H Slight hemolysis CL (test code = 9634226929) 97 mmol/L 98-108 L CO2 TOTAL (test code = 6010040695) 23 mmol/L 23-31 AGAP (test code = 4974098926) 15 2-16 BUN (test code = 6266092416) 53 mg/dL 7-23 H Slight hemolysis GLUCOSE (test code = 5814582752) 106 mg/dL 70-110 CREATININE (test code = 2160-0) 2.83 mg/dL 0.60-1.25 H CALCIUM (test code = 4712270357) 9.6 mg/dL 8.6-10.6 eGFR (test code = 40498-5) 25.2 mL/min/1.73m2 CKD-EPI eGFR (2020). Assuming creatinine has been stable day-to-day for at least three months, the eGFR indicates Category G4 (15 - 29 mL/min/1.73 m2) Lab Interpretation (test code = 63918-7) [facility]normal [facility] Hospital[facility]esium2024-12-17 12:30:39* Test Item Value Reference Range Interpretation Comme nts MAGNESIUM (test code = 8754987676) 2.5 mg/dL 1.7-2.4 H Lab Interpretation (test cod e = 83154-8) Abnormal [facility] without Yxqd2923-52-52 11:37:24* Test Item Value Reference Range Interpretation Comme nts WBC (test code = 6690-2) 5.48 4.20-10.70 RBC (test code = 789-8) 6.70 4.26-5.52 H HGB (test code = 718-7) 16.9 g/dL 12.2-16.4 H HCT (test code = 4544-3) 53.7 % 38.4-49.3 H MCH (test code = 785-6) 25.2 pg 26.1-32.7 L MCV (test code = 787-2) 80.1 fL 81.7-95.6 L MCHC (test code = 786-4) 31.5 g/dL 31.2-35.0 PLT (test code = 777-3) 247 150-328 MPV (test code = 97344-5) 9.9 fL 9.8-13.0 RDW-CV (test code = 788-0) 18.6 % 12.1-15.4 H RDW-SD (test code = 51951-3) 49.7 fL 38.5-51.6 NRBC x10^3 (test code = 8114230747) See_Comment [Automated [employer] ge] The system which generated this result transmitted reference range: 10*3/?L. The reference range was not used to interpret this result as normal/abnormal. NRBC/100 WBC (test code = 0706843987) 0.0 0.0-10.0 IPF % (test code = 1431133426) Lab Interpretation (test code = 11517-9) Abnormal [facility] without Qxdf8272-11-63 11:37:24* Test Item Value Reference Range Interpretation Comme nts WBC (test code = 6690-2) 5.48 4.20-10.70 RBC (test code = 789-8) 6.70 4.26-5.52 H HGB (test code = 718-7) 16.9 g/dL 12.2-16.4 H HCT (test code = 4544-3) 53.7 % 38.4-49.3 H MCH (test code = 785-6) 25.2 pg 26.1-32.7 L MCV (test code = 787-2) 80.1 fL 81.7-95.6 L MCHC (test code = 786-4) 31.5 g/dL 31.2-35.0 PLT (test code = 777-3) 247 150-328 MPV (test code = 12449-3) 9.9 fL 9.8-13.0 RDW-CV (test code = 788-0) 18.6 % 12.1-15.4 H RDW-SD (test code = 04565-2) 49.7 fL 38.5-51.6 NRBC x10^3 (test code = 4610300616) See_Comment [Automated [employer] ge] The system which generated this result transmitted reference range: 10*3/?L. The reference range was not used to interpret this result as normal/abnormal. NRBC/100 WBC (test code = 3884892790) 0.0 0.0-10.0 IPF % (test code = 1041928249) Lab Interpretation (test code = 82608-7) Abnormal [facility] without Fjyu3037-64-89 11:37:24* Test Item Value Reference Range Interpretation Comme nts WBC (test code = 6690-2) 5.48 4.20-10.70 RBC (test code = 789-8) 6.70 4.26-5.52 H HGB (test code = 718-7) 16.9 g/dL 12.2-16.4 H HCT (test code = 4544-3) 53.7 % 38.4-49.3 H MCH (test code = 785-6) 25.2 pg 26.1-32.7 L MCV (test code = 787-2) 80.1 fL 81.7-95.6 L MCHC (test code = 786-4) 31.5 g/dL 31.2-35.0 PLT (test code = 777-3) 247 150-328 MPV (test code = 85734-7) 9.9 fL 9.8-13.0 RDW-CV (test code = 788-0) 18.6 % 12.1-15.4 H RDW-SD (test code = 60370-4) 49.7 fL 38.5-51.6 NRBC x10^3 (test code = 3423052733) See_Comment [Automated [employer]] The system which generated this result transmitted reference range: 10*3/?L. The reference range was not used to interpret this result as normal/abnormal. NRBC/100 WBC (test code = 9922187154) 0.0 0.0-10.0 IPF % (test code = 7932320093) Lab Interpretation (test code = 54316-9) [facility]normal 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 After obtaining informed consent and administrating preoperative antibiotics, the patient was prepped and draped in the usual sterile fashion. Sedation was initiated under anesthesia team hermelinda laws. Local anesthesia was administered over the previously implanted pulse generator. An incision was made and using sharp and blunt dissection the pulse generator was freed up from the surrounding tissue and removed from the pocket. The leads were disconnected and examined for structural integrity and absence of "make-break" artifacts. Pacing and sensing thresholds, lead impedances and absence of diaphragmatic stimulation were confirmed. All leads were connected to the appropriate posts in the new pulse generator. The wound was irrigated with a large amount of antibiotic solution. Adequate hemostasis was confirmed. The new pulse generator was placed into the pocket. Excess leads were coiled behind the device. Wound was closed with two layers of absorbable sutures. Skin was closed with Dermabond glue. Postoperative interrogation confirmed adequate pacemaker function.The patient tolerated the procedure well and there were no acute complications. Device Characteristics: Device Characteristics:Pulse generator: Knomo Model [id number] Lead: Biotronik Solia S53, P waves: 11.7 mV, Threshold 0.4 V@0.4msec, Impedance 633 ohmsRV Lead: Biotronik Plexa SD 65/18, R- waves 9.1 mV, Threshold 0.7 V@0.4msec, Impedance 505 ohmsLV Lead: Biotronik Sentus L85, R waves: 8.5 mV, Threshold ?1.5V@0.4msec, Impedance 483 ohms High Voltage Impedance: 61 ohms MRI Compatible Final Programming: DDDR 60-130VT 1 ?150-180 ?MonitorVT2 ? 180-210 ?ATP, Max Output ShocksVF ? ? 210+ ? ? ? Max Output Shocks Impression: Successful Bi-Ventricular ICD pulse Generator Change Out Plan:Pressure dressing in place. Please remove tomorrow AM. Follow up in device clinic in 2 weeks for wound check. Follow up in EP clinic in 6-8 weeks. José Miguel Arellano, MDCardiac ElectrophysiologyUnBaylor Scott [facility] CATH PROCEDURE [id number] 01:07:24Ordered by an unspecified provider. [facility] GLU[facility]SE (AUTOMATED)2024-07-18 18:35:33* Test Item Value Reference Range Interpretation Comme [facility] POCT GLU (test code = 5671707682) 106 mg/dL 70-110 Lab Interpretation (test cod e = 20132-8) Normal [facility] GLUCOSE (AUTOMATED)2024-07-18 18:35:33* Test Item Value Reference Range Interpretation Comme [facility] POCT GLU (test code = 9040957514) 106 mg/dL 70-110 Lab Interpretation (test cod e = 36142-5) Normal [facility] GLUCOSE (AUTOMATED)2024-07-18 18:35:33* Test Item Value Reference Range Interpretation Comme [facility] POCT GLU (test code = 3710011146) 106 mg/dL 70-110 Lab Interpretation (test cod e = 04935-6) Normal [facility] Metabolic Panel (NA, K, CL, CO2, GLUCOSE, BUN, CREATININE, CA)2024-07-18 10:12:20* Test Item Value Reference Range Interpretation Comme [facility] NA (test code = 4435688781) 135 mmol/L 135-145 K (test code = 3767498188) 4.7 mmol/L 3.5-5.0 CL (test code = 7548172237) 96 mmol/L 98-108 L CO2 TOTAL (test code = 5961006941) 32 mmol/L 23-31 H AGAP (test code = 0875259388) 7 2-16 BUN (test code = 5707640984) 37 mg/dL 7-23 H GLUCOSE (test code = 3058756103) 110 mg/dL 70-110 CREATININE (test code = 2160-0) 1.90 mg/dL 0.60-1.25 H CALCIUM (test code = 4507717245) 9.5 mg/dL 8.6-10.6 eGFR (test code = 79188-2) 40.6 mL/min/1.73m2 CKD-EPI eGFR (2020). Assuming creatinine has been stable day-to-day for at least three months, the eGFR indicates Category G3b (30 - 44 mL/min/1.73 m2) Lab Interpretation (test code = 88985-0) Abnormal [facility] Metabolic Panel (NA, K, CL, CO2, GLUCOSE, BUN, CREATININE, CA)2024-07-18 10:12:20* Test Item Value Reference Range Interpretation Comme nts NA (test code = 9371817509) 135 mmol/L 135-145 K (test code = 4127541941) 4.7 mmol/L 3.5-5.0 CL (test code = 4933413912) 96 mmol/L 98-108 L CO2 TOTAL (test code = 5861486406) 32 mmol/L 23-31 H AGAP (test code = 9533339466) 7 2-16 BUN (test code = 8680290713) 37 mg/dL 7-23 H GLUCOSE (test code = 3783099841) 110 mg/dL 70-110 CREATININE (test code = 2160-0) 1.90 mg/dL 0.60-1.25 H CALCIUM (test code = 0636958704) 9.5 mg/dL 8.6-10.6 eGFR (test code = 04351-2) 40.6 mL/min/1.73m2 CKD-EPI eGFR (2020). Assuming creatinine has been stable day-to-day for at least three months, the eGFR indicates Category G3b (30 - 44 mL/min/1.73 m2) Lab Interpretation (test code = 56041-3) Abnormal [facility] Metabolic Panel (NA, K, CL, CO2, GLUCOSE, BUN, CREATININE, CA)2024-07-18 10:12:20* Test Item Value Reference Range Interpretation Comme nts NA (test code = 9318133922) 135 mmol/L 135-145 K (test code = 6055884060) 4.7 mmol/L 3.5-5.0 CL (test code = 6903320116) 96 mmol/L 98-108 L CO2 TOTAL (test code = 7508304329) 32 mmol/L 23-31 H AGAP (test code = 0582154287) 7 2-16 BUN (test code = 7676710125) 37 mg/dL 7-23 H GLUCOSE (test code = 2919303297) 110 mg/dL 70-110 CREATININE (test code = 2160-0) 1.90 mg/dL 0.60-1.25 H CALCIUM (test code = 7550512272) 9.5 mg/dL 8.6-10.6 eGFR (test code = 09555-6) 40.6 mL/min/1.73m2 CKD-EPI eGFR (2020). Assuming creatinine has been stable day-to-day for at least three months, the eGFR indicates Category G3b (30 - 44 mL/min/1.73 m2) Lab Interpretation (test code = 11431-1) [facility] 10:10:29* Test Item Value Reference Range Interpretation Comme nts MAGNESIUM (test code = 1218798043) 2.7 mg/dL 1.7-2.4 H Lab Interpretation (test cod e = 29721-3) [facility] 10:10:29* Test Item Value Reference Range Interpretation Comme nts MAGNESIUM (test code = 4646959653) 2.7 mg/dL 1.7-2.4 H Lab Interpretation (test cod e = 71167-3) [facility] 10:10:29* Test Item Value Reference Range Interpretation Comme nts MAGNESIUM (test code = 6666670296) 2.7 mg/dL 1.7-2.4 H Lab Interpretation (test cod e = 56928-2) [facility]normal [facility]for use with Heparin Infusion)2024-07-18 09:51:30* Test Item Value Reference Range Interpretation Comme nts APTT Patient (test code = 3173-2) 68 26-36 H Lab Interpretation (test cod e = 77326-0) [facility]normal [facility]for use with Heparin Infusion)2024-07-18 09:51:30* Test Item Value Reference Range Interpretation Comme nts APTT Patient (test code = 3173-2) 68 26-36 H Lab Interpretation (test cod e = 38992-9) Abnormal [facility]for use with Heparin Infusion)2024-07-18 09:51:30* Test Item Value Reference Range Interpretation Comme nts APTT Patient (test code = 3173-2) 68 26-36 H Lab Interpretation (test cod e = 84458-5) [facility]normal [facility] HospitalCb with Zgib8940-17-86 09:48:09* Test Item Value Reference Range Interpretation Comme nts WBC (test code = 6690-2) 5.53 4.20-10.70 RBC (test code = 789-8) 6.76 4.26-5.52 H HGB (test code = 718-7) 17.2 g/dL 12.2-16.4 H HCT (test code = 4544-3) 53.4 % 38.4-49.3 H MCV (test code = 787-2) 79.0 fL 81.7-95.6 L MCH (test code = 785-6) 25.4 pg 26.1-32.7 L MCHC (test code = 786-4) 32.2 g/dL 31.2-35.0 RDW-SD (test code = 40794-2) 47.9 fL 38.5-51.6 RDW-CV (test code = 788-0) 18.5 % 12.1-15.4 H PLT (test code = 777-3) 254 150-328 MPV (test code = 47431-4) 10.2 fL 9.8-13.0 NRBC/100 WBC (test code = 8064073386) 0.0 0.0-10.0 NRBC x10^3 (test code = 8298326610) See_Comment [Automated messa ge] The system which generated this result transmitted reference range: 10*3/?L. The reference range was not used to interpret this result as normal/abnormal. GRAN MAT (NEUT) % (test code = 770-8) 45.0 % IMM GRAN % (test code = 3572605634) 0.20 % LYMPH % (test code = 736-9) 36.9 % MONO % (test code = 5905-5) 15.9 % EOS % (test code = 713-8) 1.6 % BASO % (test code = 706-2) 0.4 % GRAN MAT x10^3(ANC) (test code = 3399870135) 2.49 10*3/uL 1.99-6.95 IMM GRAN x10^3 (test code = 9988753965) 0.00-0.06 LYMPH x10^3 (test code = 731-0) 2.04 10*3/uL 1.09-3.23 MONO x10^3 (test code = 742-7) 0.88 10*3/uL 0.36-1.02 EOS x10^3 (test code = 711-2) 0.09 10*3/uL 0.06-0.53 BASO x10^3 (test code = 704-7) 0.01-0.09 Lab Interpretation (test code = 25378-8) Abnormal [facility] with Vmwq2650-52-50 09:48:09* Test Item Value Reference Range Interpretation Comme nts WBC (test code = 6690-2) 5.53 4.20-10.70 RBC (test code = 789-8) 6.76 4.26-5.52 H HGB (test code = 718-7) 17.2 g/dL 12.2-16.4 H HCT (test code = 4544-3) 53.4 % 38.4-49.3 H MCV (test code = 787-2) 79.0 fL 81.7-95.6 L MCH (test code = 785-6) 25.4 pg 26.1-32.7 L MCHC (test code = 786-4) 32.2 g/dL 31.2-35.0 RDW-SD (test code = 16966-8) 47.9 fL 38.5-51.6 RDW-CV (test code = 788-0) 18.5 % 12.1-15.4 H PLT (test code = 777-3) 254 150-328 MPV (test code = 11572-0) 10.2 fL 9.8-13.0 NRBC/100 WBC (test code = 5598694436) 0.0 0.0-10.0 NRBC x10^3 (test code = 8485446291) See_Comment [Automated messa ge] The system which generated this result transmitted reference range: 10*3/?L. The reference range was not used to interpret this result as normal/abnormal. GRAN MAT (NEUT) % (test code = 770-8) 45.0 % IMM GRAN % (test code = 2498807327) 0.20 % LYMPH % (test code = 736-9) 36.9 % MONO % (test code = 5905-5) 15.9 % EOS % (test code = 713-8) 1.6 % BASO % (test code = 706-2) 0.4 % GRAN MAT x10^3(ANC) (test code = 1779925050) 2.49 10*3/uL 1.99-6.95 IMM GRAN x10^3 (test code = 7849163145) 0.00-0.06 LYMPH x10^3 (test code = 731-0) 2.04 10*3/uL 1.09-3.23 MONO x10^3 (test code = 742-7) 0.88 10*3/uL 0.36-1.02 EOS x10^3 (test code = 711-2) 0.09 10*3/uL 0.06-0.53 BASO x10^3 (test code = 704-7) 0.01-0.09 Lab Interpretation (test code = 48490-3) Abnormal [facility] with Pcos0826-86-65 09:48:09* Test Item Value Reference Range Interpretation Comme nts WBC (test code = 6690-2) 5.53 4.20-10.70 RBC (test code = 789-8) 6.76 4.26-5.52 H HGB (test code = 718-7) 17.2 g/dL 12.2-16.4 H HCT (test code = 4544-3) 53.4 % 38.4-49.3 H MCV (test code = 787-2) 79.0 fL 81.7-95.6 L MCH (test code = 785-6) 25.4 pg 26.1-32.7 L MCHC (test code = 786-4) 32.2 g/dL 31.2-35.0 RDW-SD (test code = 17356-1) 47.9 fL 38.5-51.6 RDW-CV (test code = 788-0) 18.5 % 12.1-15.4 H PLT (test code = 777-3) 254 150-328 MPV (test code = 44097-9) 10.2 fL 9.8-13.0 NRBC/100 WBC (test code = 0035233702) 0.0 0.0-10.0 NRBC x10^3 (test code = 1553707496) See_Comment [Automated messa ge] The system which generated this result transmitted reference range: 10*3/?L. The reference range was not used to interpret this result as normal/abnormal. GRAN MAT (NEUT) % (test code = 770-8) 45.0 % IMM GRAN % (test code = 4281479664) 0.20 % LYMPH % (test code = 736-9) 36.9 % MONO % (test code = 5905-5) 15.9 % EOS % (test code = 713-8) 1.6 % BASO % (test code = 706-2) 0.4 % GRAN MAT x10^3(ANC) (test code = 0882754950) 2.49 10*3/uL 1.99-6.95 IMM GRAN x10^3 (test code = 2658976090) 0.00-0.06 LYMPH x10^3 (test code = 731-0) 2.04 10*3/uL 1.09-3.23 MONO x10^3 (test code = 742-7) 0.88 10*3/uL 0.36-1.02 EOS x10^3 (test code = 711-2) 0.09 10*3/uL 0.06-0.53 BASO x10^3 (test code = 704-7) 0.01-0.09 Lab Interpretation (test code = 37528-0) Abnormal [facility] GLUCOSE (AUTOMATED)2024-07-18 03:05:07* Test Item Value Reference Range Interpretation Comme nts POCT GLU (test code = 4235247539) 130 mg/dL 70-110 H Lab Interpretation (test cod e = 04111-3) Abnormal [facility] GLUCOSE (AUTOMATED)2024-07-18 03:05:07* Test Item Value Reference Range Interpretation Comme nts POCT GLU (test code = 0734805349) 130 mg/dL 70-110 H Lab Interpretation (test cod e = 76630-9) Abnormal [facility] GLUCOSE (AUTOMATED)2024-07-18 03:05:07* Test Item Value Reference Range Interpretation Comme nts POCT GLU (test code = 5323256421) 130 mg/dL 70-110 H Lab Interpretation (test cod e = 17341-1) Abnormal [facility] GLUCOSE (AUTOMATED)2024-07-17 22:10:01* Test Item Value Reference Range Interpretation Comme nts POCT GLU (test code = 9141942013) 90 mg/dL 70-110 Lab Interpretation (test cod e = 05539-9) Normal [facility] GLUCOSE (AUTOMATED)2024-07-17 22:10:01* Test Item Value Reference Range Interpretation Comme nts POCT GLU (test code = 6761644306) 90 mg/dL 70-110 Lab Interpretation (test cod e = 52651-4) Normal [facility] GLUCOSE (AUTOMATED)2024-07-17 22:10:01* Test Item Value Reference Range Interpretation Comme nts POCT GLU (test code = 5997782411) 90 mg/dL 70-110 Lab Interpretation (test cod e = 63052-4) Normal [facility] GLUCOSE (AUTOMATED)2024-07-17 17:13:03* Test Item Value Reference Range Interpretation Comme nts POCT GLU (test code = 3218435941) 116 mg/dL 70-110 H Lab Interpretation (test cod e = 92537-5) Abnormal [facility] GLUCOSE (AUTOMATED)2024-07-17 17:13:03* Test Item Value Reference Range Interpretation Comme nts POCT GLU (test code = 0731025119) 116 mg/dL 70-110 H Lab Interpretation (test cod e = 83827-3) Abnormal [facility] GLUCOSE (AUTOMATED)2024-07-17 17:13:03* Test Item Value Reference Range Interpretation Comme nts POCT GLU (test code = 8807974553) 116 mg/dL 70-110 H Lab Interpretation (test cod e = 53755-3) Abnormal [facility] GLUCOSE (AUTOMATED)2024-07-17 13:49:58* Test Item Value Reference Range Interpretation Comme nts POCT GLU (test code = 6792947306) 110 mg/dL 70-110 Lab Interpretation (test cod e = 62279-1) Normal [facility] GLUCOSE (AUTOMATED)2024-07-17 13:49:58* Test Item Value Reference Range Interpretation Comme nts POCT GLU (test code = 4180985801) 110 mg/dL 70-110 Lab Interpretation (test cod e = 50187-6) [facility] 13:49:58* Test Item Value Reference Range Interpretation Comme nts POCT GLU (test code = 5285696312) 110 mg/dL 70-110 Lab Interpretation (test cod e = 25821-9) Normal [facility] with Poxf8843-78-79 12:51:46* Test Item Value Reference Range Interpretation Comme nts WBC (test code = 6690-2) 5.15 4.20-10.70 RBC (test code = 789-8) 6.16 4.26-5.52 H HGB (test code = 718-7) 15.7 g/dL 12.2-16.4 HCT (test code = 4544-3) 49.5 % 38.4-49.3 H MCV (test code = 787-2) 80.4 fL 81.7-95.6 L MCH (test code = 785-6) 25.5 pg 26.1-32.7 L MCHC (test code = 786-4) 31.7 g/dL 31.2-35.0 RDW-SD (test code = 86748-3) 49.6 fL 38.5-51.6 RDW-CV (test code = 788-0) 18.2 % 12.1-15.4 H PLT (test code = 777-3) 241 150-328 MPV (test code = 22827-4) 10.8 fL 9.8-13.0 NRBC/100 WBC (test code = 5109314203) 0.0 0.0-10.0 NRBC x10^3 (test code = 2369930748) See_Comment [Automated messa ge] The system which generated this result transmitted reference range: 10*3/?L. The reference range was not used to interpret this result as normal/abnormal. GRAN MAT (NEUT) % (test code = 770-8) 38.3 % IMM GRAN % (test code = 2497543245) 0.20 % LYMPH % (test code = 736-9) 44.1 % MONO % (test code = 5905-5) 15.1 % EOS % (test code = 713-8) 2.1 % BASO % (test code = 706-2) 0.2 % GRAN MAT x10^3(ANC) (test code = 8272932990) 1.97 10*3/uL 1.99-6.95 L IMM GRAN x10^3 (test code = 5816059271) 0.00-0.06 LYMPH x10^3 (test code = 731-0) 2.27 10*3/uL 1.09-3.23 MONO x10^3 (test code = 742-7) 0.78 10*3/uL 0.36-1.02 EOS x10^3 (test code = 711-2) 0.11 10*3/uL 0.06-0.53 BASO x10^3 (test code = 704-7) 0.01-0.09 REACT LYMPHS (test code = 9496377094) Many GIANT PLATELETS (test code = 5908-9) Present See_Comment A [Automated messa ge] The system which generated this result transmitted reference range: (none). The reference range was not used to interpret this result as normal/abnormal. Lab Interpretation (test code = 22794-8) Abnormal [facility] with Crlb9375-37-31 12:51:46* Test Item Value Reference Range Interpretation Comme nts WBC (test code = 6690-2) 5.15 4.20-10.70 RBC (test code = 789-8) 6.16 4.26-5.52 H HGB (test code = 718-7) 15.7 g/dL 12.2-16.4 HCT (test code = 4544-3) 49.5 % 38.4-49.3 H MCV (test code = 787-2) 80.4 fL 81.7-95.6 L MCH (test code = 785-6) 25.5 pg 26.1-32.7 L MCHC (test code = 786-4) 31.7 g/dL 31.2-35.0 RDW-SD (test code = 32605-2) 49.6 fL 38.5-51.6 RDW-CV (test code = 788-0) 18.2 % 12.1-15.4 H PLT (test code = 777-3) 241 150-328 MPV (test code = 42954-6) 10.8 fL 9.8-13.0 NRBC/100 WBC (test code = 5790135064) 0.0 0.0-10.0 NRBC x10^3 (test code = 3809379214) See_Comment [Automated messa ge] The system which generated this result transmitted reference range: 10*3/?L. The reference range was not used to interpret this result as normal/abnormal. GRAN MAT (NEUT) % (test code = 770-8) 38.3 % IMM GRAN % (test code = 3175426760) 0.20 % LYMPH % (test code = 736-9) 44.1 % MONO % (test code = 5905-5) 15.1 % EOS % (test code = 713-8) 2.1 % BASO % (test code = 706-2) 0.2 % GRAN MAT x10^3(ANC) (test code = 6430217417) 1.97 10*3/uL 1.99-6.95 L IMM GRAN x10^3 (test code = 0955867670) 0.00-0.06 LYMPH x10^3 (test code = 731-0) 2.27 10*3/uL 1.09-3.23 MONO x10^3 (test code = 742-7) 0.78 10*3/uL 0.36-1.02 EOS x10^3 (test code = 711-2) 0.11 10*3/uL 0.06-0.53 BASO x10^3 (test code = 704-7) 0.01-0.09 REACT LYMPHS (test code = 4717877150) Many GIANT PLATELETS (test code = 5908-9) Present See_Comment A [Automated messa ge] The system which generated this result transmitted reference range: (none). The reference range was not used to interpret this result as normal/abnormal. Lab Interpretation (test code = 03201-7) Abnormal [facility] with [id number] 12:51:46* Test Item Value Reference Range Interpretation Comme nts WBC (test code = 6690-2) 5.15 4.20-10.70 RBC (test code = 789-8) 6.16 4.26-5.52 H HGB (test code = 718-7) 15.7 g/dL 12.2-16.4 HCT (test code = 4544-3) 49.5 % 38.4-49.3 H MCV (test code = 787-2) 80.4 fL 81.7-95.6 L MCH (test code = 785-6) 25.5 pg 26.1-32.7 L MCHC (test code = 786-4) 31.7 g/dL 31.2-35.0 RDW-SD (test code = 38327-7) 49.6 fL 38.5-51.6 RDW-CV (test code = 788-0) 18.2 % 12.1-15.4 H PLT (test code = 777-3) 241 150-328 MPV (test code = 02818-9) 10.8 fL 9.8-13.0 NRBC/100 WBC (test code = 5775488736) 0.0 0.0-10.0 NRBC x10^3 (test code = 6663268591) See_Comment [Automated messa ge] The system which generated this result transmitted reference range: 10*3/?L. The reference range was not used to interpret this result as normal/abnormal. GRAN MAT (NEUT) % (test code = 770-8) 38.3 % IMM GRAN % (test code = 2503494417) 0.20 % LYMPH % (test code = 736-9) 44.1 % MONO % (test code = 5905-5) 15.1 % EOS % (test code = 713-8) 2.1 % BASO % (test code = 706-2) 0.2 % GRAN MAT x10^3(ANC) (test code = 9388706092) 1.97 10*3/uL 1.99-6.95 L IMM GRAN x10^3 (test code = 6934097002) 0.00-0.06 LYMPH x10^3 (test code = 731-0) 2.27 10*3/uL 1.09-3.23 MONO x10^3 (test code = 742-7) 0.78 10*3/uL 0.36-1.02 EOS x10^3 (test code = 711-2) 0.11 10*3/uL 0.06-0.53 BASO x10^3 (test code = 704-7) 0.01-0.09 REACT LYMPHS (test code = 2398709013) Many GIANT PLATELETS (test code = 5908-9) Present See_Comment A [Automated messa ge] The system which generated this result transmitted reference range: (none). The reference range was not used to interpret this result as normal/abnormal. Lab Interpretation (test code = 24065-3) Abnormal [facility]2024-12-15 12:26:52* Test Item Value Reference Range Interpretation Comme nts MAGNESIUM (test code = 7027308004) 1.8 mg/dL 1.7-2.4 Lab Interpretation (test cod e = 73749-1) Normal [facility] Metabolic Panel (NA, K, CL, CO2, GLUCOSE, BUN, CREATININE, CA)2024-07-17 12:26:52* Test Item Value Reference Range Interpretation Comme nts NA (test code = 7724740886) 135 mmol/L 135-145 K (test code = 1169764546) 3.6 mmol/L 3.5-5.0 CL (test code = 6356314872) 101 mmol/L 98-108 CO2 TOTAL (test code = 4268816766) 31 mmol/L 23-31 AGAP (test code = 8788855544) 3 2-16 BUN (test code = 1908189532) 31 mg/dL 7-23 H GLUCOSE (test code = 7337426977) 102 mg/dL 70-110 CREATININE (test code = 2160-0) 1.57 mg/dL 0.60-1.25 H CALCIUM (test code = 4235309850) 8.5 mg/dL 8.6-10.6 L eGFR (test code = 60837-4) 51.1 mL/min/1.73m2 CKD-EPI eGFR (2020). Assuming creatinine has been stable day-to-day for at least three months, the eGFR indicates Category G3a (45 - 59 mL/min/1.73 m2) Lab Interpretation (test code = 53749-8) Abnormal [facility]2024-12-15 12:26:52* Test Item Value Reference Range Interpretation Comme nts MAGNESIUM (test code = 6815070895) 1.8 mg/dL 1.7-2.4 Lab Interpretation (test cod e = 37410-4) Normal [facility] Metabolic Panel (NA, K, CL, CO2, GLUCOSE, BUN, CREATININE, CA)2024-07-17 12:26:52* Test Item Value Reference Range Interpretation Comme nts NA (test code = 5542702761) 135 mmol/L 135-145 K (test code = 7726403561) 3.6 mmol/L 3.5-5.0 CL (test code = 7914394886) 101 mmol/L 98-108 CO2 TOTAL (test code = 9478496941) 31 mmol/L 23-31 AGAP (test code = 6603501401) 3 2-16 BUN (test code = 0041854001) 31 mg/dL 7-23 H GLUCOSE (test code = 6982452069) 102 mg/dL 70-110 CREATININE (test code = 2160-0) 1.57 mg/dL 0.60-1.25 H CALCIUM (test code = 6218308880) 8.5 mg/dL 8.6-10.6 L eGFR (test code = 77104-3) 51.1 mL/min/1.73m2 CKD-EPI eGFR (2020). Assuming creatinine has been stable day-to-day for at least three months, the eGFR indicates Category G3a (45 - 59 mL/min/1.73 m2) Lab Interpretation (test code = 47296-1) [facility] 12:26:52* Test Item Value Reference Range Interpretation Comme nts MAGNESIUM (test code = 5962325909) 1.8 mg/dL 1.7-2.4 Lab Interpretation (test cod e = 59122-2) Normal [facility] Metabolic Panel (NA, K, CL, CO2, GLUCOSE, BUN, CREATININE, CA)2024-07-17 12:26:52* Test Item Value Reference Range Interpretation Comme nts NA (test code = 4056340545) 135 mmol/L 135-145 K (test code = 9320490493) 3.6 mmol/L 3.5-5.0 CL (test code = 2148171109) 101 mmol/L 98-108 CO2 TOTAL (test code = 4726301712) 31 mmol/L 23-31 AGAP (test code = 1551486046) 3 2-16 BUN (test code = 7984643706) 31 mg/dL 7-23 H GLUCOSE (test code = 1665134227) 102 mg/dL 70-110 CREATININE (test code = 2160-0) 1.57 mg/dL 0.60-1.25 H CALCIUM (test code = 4713669273) 8.5 mg/dL 8.6-10.6 L eGFR (test code = 14801-5) 51.1 mL/min/1.73m2 CKD-EPI eGFR (2020). Assuming creatinine has been stable day-to-day for at least three months, the eGFR indicates Category G3a (45 - 59 mL/min/1.73 m2) Lab Interpretation (test code = 74482-3) [facility]normal [facility] - ONCE Zomgydu6180-68-47 11:38:00* Test Item Value Reference Range Interpretation Comme nts ABO & RH (test code = 20) O POSITIVE IAT (test code = 1185) Negative [facility] - [facility]CE Pcdvkcc8927-68-51 11:38:00* Test Item Value Reference Range Interpretation Comme nts ABO & RH (test code = 20) O POSITIVE IAT (test code = 1185) Negative [facility] and Screen - ONCE Zsctgjj5009-23-32 11:38:00* Test Item Value Reference Range Interpretation Comme nts ABO & RH (test code = 20) O POSITIVE IAT (test code = 1185) Negative [facility] (for use with Heparin Infusion)2024-07-17 09:11:29* Test Item Value Reference Range Interpretation Comme nts APTT Patient (test code = 3173-2) 71 26-36 H Lab Interpretation (test cod e = 09691-1) Abnormal [facility]for use with Heparin Infusion)2024-07-17 09:11:29* Test Item Value Reference Range Interpretation Comme nts APTT Patient (test code = 3173-2) 71 26-36 H Lab Interpretation (test cod e = 67728-4) [facility]17 09:11:29* Test Item Value Reference Range Interpretation Comme nts APTT Patient (test code = 3173-2) 71 26-36 H Lab Interpretation (test cod e = 07273-7) Abnormal [facility] GLUCOSE (AUTOMATED)2024-07-17 02:17:59* Test Item Value Reference Range Interpretation Comme nts POCT GLU (test code = 3123987717) 110 mg/dL 70-110 Lab Interpretation (test cod e = 75365-0) Normal [facility] GLUCOSE (AUTOMATED)2024-07-17 02:17:59* Test Item Value Reference Range Interpretation Comme nts POCT GLU (test code = 6227982862) 110 mg/dL 70-110 Lab Interpretation (test cod e = 43618-9) Normal [facility] GLUCOSE (AUTOMATED)2024-07-17 02:17:59* Test Item Value Reference Range Interpretation Comme nts POCT GLU (test code = 5252161793) 110 mg/dL 70-110 Lab Interpretation (test cod e = 67859-5) Normal [facility] GLUCOSE (AUTOMATED)2024-07-16 22:49:27* Test Item Value Reference Range Interpretation Comme nts POCT GLU (test code = 5137099212) 116 mg/dL 70-110 H Lab Interpretation (test cod e = 70258-1) Abnormal [facility] GLUCOSE (AUTOMATED)2024-07-16 22:49:27* Test Item Value Reference Range Interpretation Comme nts POCT GLU (test code = 6441249969) 116 mg/dL 70-110 H Lab Interpretation (test cod e = 65201-8) Abnormal [facility] GLUCOSE (AUTOMATED)2024-07-16 22:49:27* Test Item Value Reference Range Interpretation Comme nts POCT GLU (test code = 4576247044) 116 mg/dL 70-110 H Lab Interpretation (test cod e = 78287-5) [facility]normal [facility]for use with Heparin Infusion)2024-07-16 21:01:17* Test Item Value Reference Range Interpretation Comme nts APTT Patient (test code = 3173-2) 62 26-36 H Lab Interpretation (test cod e = 04095-2) [facility] In[facility]2024-07-16 21:01:17* Test Item Value Reference Range Interpretation Comme nts APTT Patient (test code = 3173-2) 62 26-36 H Lab Interpretation (test cod e = 38042-0) [facility]normal [facility]for use with Heparin Infusion)2024-07-16 21:01:17* Test Item Value Reference Range Interpretation Comme nts APTT Patient (test code = 3173-2) 62 26-36 H Lab Interpretation (test cod e = 48685-4) Abnormal [facility] GLUCOSE (AUTOMATED)2024-07-16 17:47:28* Test Item Value Reference Range Interpretation Comme nts POCT GLU (test code = 5735807737) 105 mg/dL 70-110 Lab Interpretation (test cod e = 68320-9) Normal [facility] GLUCOSE (AUTOMATED)2024-07-16 17:47:28* Test Item Value Reference Range Interpretation Comme nts POCT GLU (test code = 9553109053) 105 mg/dL 70-110 Lab Interpretation (test cod e = 73199-8) Normal [facility] GLUCOSE (AUTOMATED)2024-07-16 17:47:28* Test Item Value Reference Range Interpretation Comme nts POCT GLU (test code = 5889762324) 105 mg/dL 70-110 Lab Interpretation (test cod e = 96714-9) Normal [facility] GLUCOSE (AUTOMATED)2024-07-16 14:57:56* Test Item Value Reference Range Interpretation Comme nts POCT GLU (test code = 9079173983) 132 mg/dL 70-110 H Lab Interpretation (test cod e = 29985-3) Abnormal [facility] (AUTOMATED)2024-07-16 14:57:56* Test Item Value Reference Range Interpretation Comme nts POCT GLU (test code = 0607103306) 132 mg/dL 70-110 H Lab Interpretation (test cod e = 18977-7) Abnormal [facility] GLUCOSE (AUTOMATED)2024-07-16 14:57:56* Test Item Value Reference Range Interpretation Comme nts POCT GLU (test code = 7659211999) 132 mg/dL 70-110 H Lab Interpretation (test cod e = 47781-6) Abnormal [facility] with Qaiq5191-93-02 08:45:42* Test Item Value Reference Range Interpretation Comme nts WBC (test code = 6690-2) 5.19 4.20-10.70 RBC (test code = 789-8) 6.13 4.26-5.52 H HGB (test code = 718-7) 15.1 g/dL 12.2-16.4 HCT (test code = 4544-3) 49.1 % 38.4-49.3 MCV (test code = 787-2) 80.1 fL 81.7-95.6 L MCH (test code = 785-6) 24.6 pg 26.1-32.7 L MCHC (test code = 786-4) 30.8 g/dL 31.2-35.0 L RDW-SD (test code = 96406-4) 50.7 fL 38.5-51.6 RDW-CV (test code = 788-0) 18.3 % 12.1-15.4 H PLT (test code = 777-3) 229 150-328 MPV (test code = 31291-0) 10.0 fL 9.8-13.0 NRBC/100 WBC (test code = 2972410918) 0.0 0.0-10.0 NRBC x10^3 (test code = 7093454295) See_Comment [Automated messa ge] The system which generated this result transmitted reference range: 10*3/?L. The reference range was not used to interpret this result as normal/abnormal. GRAN MAT (NEUT) % (test code = 770-8) 34.5 % IMM GRAN % (test code = 9557759058) 0.00 % LYMPH % (test code = 736-9) 46.8 % MONO % (test code = 5905-5) 15.0 % EOS % (test code = 713-8) 3.3 % BASO % (test code = 706-2) 0.4 % GRAN MAT x10^3(ANC) (test code = 2685322006) 1.79 10*3/uL 1.99-6.95 L IMM GRAN x10^3 (test code = 3833573870) 0.00-0.06 LYMPH x10^3 (test code = 731-0) 2.43 10*3/uL 1.09-3.23 MONO x10^3 (test code = 742-7) 0.78 10*3/uL 0.36-1.02 EOS x10^3 (test code = 711-2) 0.17 10*3/uL 0.06-0.53 BASO x10^3 (test code = 704-7) 0.01-0.09 Lab Interpretation (test code = 39776-3) Abnormal [facility] with Zovy2909-20-57 08:45:42* Test Item Value Reference Range Interpretation Comme nts WBC (test code = 6690-2) 5.19 4.20-10.70 RBC (test code = 789-8) 6.13 4.26-5.52 H HGB (test code = 718-7) 15.1 g/dL 12.2-16.4 HCT (test code = 4544-3) 49.1 % 38.4-49.3 MCV (test code = 787-2) 80.1 fL 81.7-95.6 L MCH (test code = 785-6) 24.6 pg 26.1-32.7 L MCHC (test code = 786-4) 30.8 g/dL 31.2-35.0 L RDW-SD (test code = 89490-9) 50.7 fL 38.5-51.6 RDW-CV (test code = 788-0) 18.3 % 12.1-15.4 H PLT (test code = 777-3) 229 150-328 MPV (test code = 96330-2) 10.0 fL 9.8-13.0 NRBC/100 WBC (test code = 7944043397) 0.0 0.0-10.0 NRBC x10^3 (test code = 7887405493) See_Comment [Automated [employer]] The system which generated this result transmitted reference range: 10*3/?L. The reference range was not used to interpret this result as normal/abnormal. GRAN MAT (NEUT) % (test code = 770-8) 34.5 % IMM GRAN % (test code = 2135135486) 0.00 % LYMPH % (test code = 736-9) 46.8 % MONO % (test code = 5905-5) 15.0 % EOS % (test code = 713-8) 3.3 % BASO % (test code = 706-2) 0.4 % GRAN MAT x10^3(ANC) (test code = 8109963651) 1.79 10*3/uL 1.99-6.95 L IMM GRAN x10^3 (test code = 8843232363) 0.00-0.06 LYMPH x10^3 (test code = 731-0) 2.43 10*3/uL 1.09-3.23 MONO x10^3 (test code = 742-7) 0.78 10*3/uL 0.36-1.02 EOS x10^3 (test code = 711-2) 0.17 10*3/uL 0.06-0.53 BASO x10^3 (test code = 704-7) 0.01-0.09 Lab Interpretation (test code = 96339-8) Abnormal [facility] with Xrli4031-48-61 08:45:42* Test Item Value Reference Range Interpretation Comme nts WBC (test code = 6690-2) 5.19 4.20-10.70 RBC (test code = 789-8) 6.13 4.26-5.52 H HGB (test code = 718-7) 15.1 g/dL 12.2-16.4 HCT (test code = 4544-3) 49.1 % 38.4-49.3 MCV (test code = 787-2) 80.1 fL 81.7-95.6 L MCH (test code = 785-6) 24.6 pg 26.1-32.7 L MCHC (test code = 786-4) 30.8 g/dL 31.2-35.0 L RDW-SD (test code = 09884-7) 50.7 fL 38.5-51.6 RDW-CV (test code = 788-0) 18.3 % 12.1-15.4 H PLT (test code = 777-3) 229 150-328 MPV (test code = 02958-2) 10.0 fL 9.8-13.0 NRBC/100 WBC (test code = 9377926327) 0.0 0.0-10.0 NRBC x10^3 (test code = 2844865776) See_Comment [Automated messa ge] The system which generated this result transmitted reference range: 10*3/?L. The reference range was not used to interpret this result as normal/abnormal. GRAN MAT (NEUT) % (test code = 770-8) 34.5 % IMM GRAN % (test code = 1016085680) 0.00 % LYMPH % (test code = 736-9) 46.8 % MONO % (test code = 5905-5) 15.0 % EOS % (test code = 713-8) 3.3 % BASO % (test code = 706-2) 0.4 % GRAN MAT x10^3(ANC) (test code = 4927098174) 1.79 10*3/uL 1.99-6.95 L IMM GRAN x10^3 (test code = 5189858858) 0.00-0.06 LYMPH x10^3 (test code = 731-0) 2.43 10*3/uL 1.09-3.23 MONO x10^3 (test code = 742-7) 0.78 10*3/uL 0.36-1.02 EOS x10^3 (test code = 711-2) 0.17 10*3/uL 0.06-0.53 BASO x10^3 (test code = 704-7) 0.01-0.09 Lab Interpretation (test code = 82852-1) [facility] Test Item Value Reference Range Interpretation Comme nts MAGNESIUM (test code = 1141206687) 2.1 mg/dL 1.7-2.4 Lab Interpretation (test cod e = 85313-0) Normal [facility] Metabolic Panel (NA, K, CL, CO2, GLUCOSE, BUN, CREATININE, CA)2024-07-16 08:40:01* Test Item Value Reference Range Interpretation Comme nts NA (test code = 8350062037) 134 mmol/L 135-145 L K (test code = 3308688214) 3.5 mmol/L 3.5-5.0 Slight hemolysis CL (test code = 0608966905) 100 mmol/L 98-108 CO2 TOTAL (test code = 5050468974) 32 mmol/L 23-31 H AGAP (test code = 4118377936) 2 2-16 BUN (test code = 4934159663) 27 mg/dL 7-23 H Slight hemolysis GLUCOSE (test code = 8694062925) 105 mg/dL 70-110 CREATININE (test code = 2160-0) 1.70 mg/dL 0.60-1.25 H CALCIUM (test code = 1050564009) 8.5 mg/dL 8.6-10.6 L eGFR (test code = 11240-0) 46.4 mL/min/1.73m2 CKD-EPI eGFR (2020). Assuming creatinine has been stable day-to-day for at least three months, the eGFR indicates Category G3a (45 - 59 mL/min/1.73 m2) Lab Interpretation (test code = 85077-1) [facility] 08:40:01* Test Item Value Reference Range Interpretation Comme nts MAGNESIUM (test code = 7833199632) 2.1 mg/dL 1.7-2.4 Lab Interpretation (test cod e = 46395-9) Normal [facility] Metabolic Panel (NA, K, CL, CO2, GLUCOSE, BUN, CREATININE, CA)2024-07-16 08:40:01* Test Item Value Reference Range Interpretation Comme nts NA (test code = 6565135396) 134 mmol/L 135-145 L K (test code = 4581255332) 3.5 mmol/L 3.5-5.0 Slight hemolysis CL (test code = 3865469371) 100 mmol/L 98-108 CO2 TOTAL (test code = 8096987321) 32 mmol/L 23-31 H AGAP (test code = 9271396408) 2 2-16 BUN (test code = 9535332058) 27 mg/dL 7-23 H Slight hemolysis GLUCOSE (test code = 6862262373) 105 mg/dL 70-110 CREATININE (test code = 2160-0) 1.70 mg/dL 0.60-1.25 H CALCIUM (test code = 7452697649) 8.5 mg/dL 8.6-10.6 L eGFR (test code = 72069-4) 46.4 mL/min/1.73m2 CKD-EPI eGFR (2020). Assuming creatinine has been stable day-to-day for at least three months, the eGFR indicates Category G3a (45 - 59 mL/min/1.73 m2) Lab Interpretation (test code = 80988-9) [facility] 08:40:01* Test Item Value Reference Range Interpretation Comme nts MAGNESIUM (test code = 4194429470) 2.1 mg/dL 1.7-2.4 Lab Interpretation (test cod e = 27414-9) Normal [facility] Metabolic Panel (NA, K, CL, CO2, GLUCOSE, BUN, CREATININE, CA)2024-07-16 08:40:01* Test Item Value Reference Range Interpretation Comme nts NA (test code = 5452722958) 134 mmol/L 135-145 L K (test code = 2667584674) 3.5 mmol/L 3.5-5.0 Slight hemolysis CL (test code = 4778176431) 100 mmol/L 98-108 CO2 TOTAL (test code = 5711683433) 32 mmol/L 23-31 H AGAP (test code = 3638981203) 2 2-16 BUN (test code = 2400265590) 27 mg/dL 7-23 H Slight hemolysis GLUCOSE (test code = 0109358692) 105 mg/dL 70-110 CREATININE (test code = 2160-0) 1.70 mg/dL 0.60-1.25 H CALCIUM (test code = 4445751667) 8.5 mg/dL 8.6-10.6 L eGFR (test code = 47118-9) 46.4 mL/min/1.73m2 CKD-EPI eGFR (2020). Assuming creatinine has been stable day-to-day for at least three months, the eGFR indicates Category G3a (45 - 59 mL/min/1.73 m2) Lab Interpretation (test code = 56181-9) [facility] with [facility] Infusion)2024-07-16 08:17:19* Test Item Value Reference Range Interpretation Comme nts APTT Patient (test code = 3173-2) 64 26-36 H Lab Interpretation (test cod e = 06075-8) [facility]2024-07-16 08:17:19* Test Item Value Reference Range Interpretation Comme nts APTT Patient (test code = 3173-2) 64 26-36 H Lab Interpretation (test cod e = 99202-5) Abnormal [facility]for use with [facility] Infusion)2024-07-16 08:17:19* Test Item Value Reference Range Interpretation Comme nts APTT Patient (test code = 3173-2) 64 26-36 H Lab Interpretation (test cod e = 73234-4) Abnormal [facility] GLUCOSE (AUTOMATED)2024-07-16 03:07:23* Test Item Value Reference Range Interpretation Comme nts POCT GLU (test code = 5456289510) 137 mg/dL 70-110 H Lab Interpretation (test cod e = 06783-4) Abnormal [facility] GLUCOSE (AUTOMATED)2024-07-16 03:07:23* Test Item Value Reference Range Interpretation Comme nts POCT GLU (test code = 0349009106) 137 mg/dL 70-110 H Lab Interpretation (test cod e = 58985-9) Abnormal [facility] GLUCOSE (AUTOMATED)2024-07-16 03:07:23* Test Item Value Reference Range Interpretation Comme nts POCT GLU (test code = 6074337997) 137 mg/dL 70-110 H Lab Interpretation (test cod e = 33614-1) Abnormal [facility] GLUCOSE (AUTOMATED)2024-07-15 23:48:57* Test Item Value Reference Range Interpretation Comme nts POCT GLU (test code = 0493600508) 132 mg/dL 70-110 H Lab Interpretation (test cod e = 47273-7) Abnormal [facility] GLUCOSE (AUTOMATED)2024-07-15 23:48:57* Test Item Value Reference Range Interpretation Comme nts POCT GLU (test code = 7512106374) 132 mg/dL 70-110 H Lab Interpretation (test cod e = 74940-5) Abnormal [facility] GLUCOSE (AUTOMATED)2024-07-15 23:48:57* Test Item Value Reference Range Interpretation Comme nts POCT GLU (test code = 9651620754) 132 mg/dL 70-110 H Lab Interpretation (test cod e = 36458-8) Abnormal [facility] [id number] 19:35:43* Test Item Value Reference Range Interpretation Comme nts TROPONIN I (test code = 3141315979) 0.202 ng/mL <=0.034 H JACOB (test code = JACOB) Reference (Normal) [...] of biotin. Lab Interpretation (test code = 76355-1) Abnormal [facility] [id number] 19:35:43* Test Item Value Reference Range Interpretation Comme nts TROPONIN I (test code = 0148549828) 0.202 ng/mL <=0.034 H JACOB (test code = JACOB) Reference (Normal) [...] of biotin. Lab Interpretation (test code = 21236-4) Abnormal [facility] [id number] 19:35:43* Test Item Value Reference Range Interpretation Comme nts TROPONIN I (test code = 4879054599) 0.202 ng/mL <=0.034 H JACOB (test code = JACOB) Reference (Normal) [...] of biotin. Lab Interpretation (test code = 59195-9) [facility]fusion[facility]2024-07-15 19:14:22* Test Item Value Reference Range Interpretation Comme [facility] APTT Patient (test code = 3173-2) 62 26-36 H Lab Interpretation (test cod e = 36855-5) [facility] Infusion)2024-07-15 19:14:22* Test Item Value Reference Range Interpretation Comme [facility] APTT Patient (test code = 3173-2) 62 26-36 H Lab Interpretation (test cod e = 24685-7) [facility] Infusion)2024-07-15 19:14:22* Test Item Value Reference Range Interpretation Comme [facility] APTT Patient (test code = 3173-2) 62 26-36 H Lab Interpretation (test cod e = 38854-8) Abnormal [facility] (07989)(Total Cholesterol, Triglycerides, HDL)2024-07-15 18:55:16* Test Item Value Reference Range Interpretation Comme nts CHOL (test code = 2884346914) 171 mg/dL 120-200 HDL (test code = 2424461880) 47 mg/dL >=40 HDLC RATIO (test code = 3932824908) 3.6 <=5.0 TRIG (test code = 3415300609) 97 mg/dL 30-170 LDL CHOL (test code = 22110-4) 105 mg/dL <=160 VLDL (test code = 0302829583) 19 mg/dL 5-60 Lab Interpretation (test cod e = 33523-5) Normal [facility] (85459)(Total Cholesterol, Triglycerides, HDL)2024-07-15 18:55:16* Test Item Value Reference Range Interpretation Comme nts CHOL (test code = 9827822238) 171 mg/dL 120-200 HDL (test code = 3645008258) 47 mg/dL >=40 HDLC RATIO (test code = 2923099711) 3.6 <=5.0 TRIG (test code = 1980936300) 97 mg/dL 30-170 LDL CHOL (test code = 74108-6) 105 mg/dL <=160 VLDL (test code = 9329096546) 19 mg/dL 5-60 Lab Interpretation (test cod e = 12735-5) Normal [facility] (78014)(Total Cholesterol, Triglycerides, HDL)2024-07-15 18:55:16* Test Item Value Reference Range Interpretation Comme nts CHOL (test code = 4054391221) 171 mg/dL 120-200 HDL (test code = 4960099826) 47 mg/dL >=40 HDLC RATIO (test code = 5697442624) 3.6 <=5.0 TRIG (test code = 9558144888) 97 mg/dL 30-170 LDL CHOL (test code = 21261-5) 105 mg/dL <=160 VLDL (test code = 3573898775) 19 mg/dL 5-60 Lab Interpretation (test cod e = 47320-6) Normal [facility] GLUCOSE (AUTOMATED)2024-07-15 17:52:57* Test Item Value Reference Range Interpretation Comme nts POCT GLU (test code = 0144693479) 114 mg/dL 70-110 H Lab Interpretation (test cod e = 06674-9) Abnormal [facility] GLUCOSE (AUTOMATED)2024-07-15 17:52:57* Test Item Value Reference Range Interpretation Comme nts POCT GLU (test code = 3001634373) 114 mg/dL 70-110 H Lab Interpretation (test cod e = 64708-5) Abnormal [facility] GLUCOSE (AUTOMATED)2024-07-15 17:52:57* Test Item Value Reference Range Interpretation Comme nts POCT GLU (test code = 8393683678) 114 mg/dL 70-110 H Lab Interpretation (test cod e = 19294-1) Abnormal [facility] [id number] 16:14:32* Test Item Value Reference Range Interpretation Comme nts TROPONIN I (test code = 9234834986) 0.339 ng/mL <=0.034 H JACOB (test code = JACOB) Reference (Normal) [...] of biotin. Lab Interpretation (test code = 53411-4) Abnormal [facility] [id number] 16:14:32* Test Item Value Reference Range Interpretation Comme nts TROPONIN I (test code = 7174379909) 0.339 ng/mL <=0.034 H JACOB (test code = JACOB) Reference (Normal) [...] of biotin. Lab Interpretation (test code = 36169-0) Abnormal [facility] [id number] 16:14:32* Test Item Value Reference Range Interpretation Comme nts TROPONIN I (test code = 5723040690) 0.339 ng/mL <=0.034 H JACOB (test code = JACOB) Reference (Normal) [...] of biotin. Lab Interpretation (test code = 80154-6) Abnormal [facility] GLUCOSE (AUTOMATED)2024-07-15 14:03:01* Test Item Value Reference Range Interpretation Comme nts POCT GLU (test code = 1776259271) 108 mg/dL 70-110 Lab Interpretation (test cod e = 73693-7) Normal [facility] GLUCOSE (AUTOMATED)2024-07-15 14:03:01* Test Item Value Reference Range Interpretation Comme nts POCT GLU (test code = 5394565336) 108 mg/dL 70-110 Lab Interpretation (test cod e = 04251-0) Normal [facility] GLUCOSE (AUTOMATED)2024-07-15 14:03:01* Test Item Value Reference Range Interpretation Comme nts POCT GLU (test code = 9628161047) 108 mg/dL 70-110 Lab Interpretation (test cod e = 99599-4) [facility]2024-[facility]-13 08:20:51* Test Item Value Reference Range Interpretation Comme nts MAGNESIUM (test code = 3444983015) 1.8 mg/dL 1.7-2.4 Lab Interpretation (test cod e = 09556-6) Normal [facility] Metabolic Panel (NA, K, CL, CO2, GLUCOSE, BUN, CREATININE, CA)2024-07-15 08:20:51* Test Item Value Reference Range Interpretation Comme nts NA (test code = 7363826706) 137 mmol/L 135-145 K (test code = 1112588626) 3.7 mmol/L 3.5-5.0 CL (test code = 9934923051) 102 mmol/L 98-108 CO2 TOTAL (test code = 7640089365) 28 mmol/L 23-31 AGAP (test code = 3861171841) 7 2-16 BUN (test code = 5746842020) 23 mg/dL 7-23 GLUCOSE (test code = 4726111777) 102 mg/dL 70-110 CREATININE (test code = 2160-0) 1.53 mg/dL 0.60-1.25 H CALCIUM (test code = 4442930601) 8.3 mg/dL 8.6-10.6 L eGFR (test code = 77257-8) 52.7 mL/min/1.73m2 CKD-EPI eGFR (2020). Assuming creatinine has been stable day-to-day for at least three months, the eGFR indicates Category G3a (45 - 59 mL/min/1.73 m2) Lab Interpretation (test code = 36721-8) [facility]2024-[facility]-13 08:20:51* Test Item Value Reference Range Interpretation Comme nts MAGNESIUM (test code = 4195422670) 1.8 mg/dL 1.7-2.4 Lab Interpretation (test cod e = 57740-5) Normal [facility] Metabolic Panel (NA, K, CL, CO2, GLUCOSE, BUN, CREATININE, CA)2024-07-15 08:20:51* Test Item Value Reference Range Interpretation Comme nts NA (test code = 5504789472) 137 mmol/L 135-145 K (test code = 9251214039) 3.7 mmol/L 3.5-5.0 CL (test code = 3502133889) 102 mmol/L 98-108 CO2 TOTAL (test code = 1545547533) 28 mmol/L 23-31 AGAP (test code = 4930852451) 7 2-16 BUN (test code = 7883992973) 23 mg/dL 7-23 GLUCOSE (test code = 3049358481) 102 mg/dL 70-110 CREATININE (test code = 2160-0) 1.53 mg/dL 0.60-1.25 H CALCIUM (test code = 4117702867) 8.3 mg/dL 8.6-10.6 L eGFR (test code = 71530-2) 52.7 mL/min/1.73m2 CKD-EPI eGFR (2020). Assuming creatinine has been stable day-to-day for at least three months, the eGFR indicates Category G3a (45 - 59 mL/min/1.73 m2) Lab Interpretation (test code = 43915-2) [facility]24-[facility]-13 08:20:51* Test Item Value Reference Range Interpretation Comme [facility] MAGNESIUM (test code = 0317119300) 1.8 mg/dL 1.7-2.4 Lab Interpretation (test cod e = 91251-4) Normal [facility] Metabolic Panel (NA, K, CL, CO2, GLUCOSE, BUN, CREATININE, CA)2024-07-15 08:20:51* Test Item Value Reference Range Interpretation Comme [facility] NA (test code = 2285127407) 137 mmol/L 135-145 K (test code = 8424273592) 3.7 mmol/L 3.5-5.0 CL (test code = 7241295414) 102 mmol/L 98-108 CO2 TOTAL (test code = 3865123365) 28 mmol/L 23-31 AGAP (test code = 8301529099) 7 2-16 BUN (test code = 4099916862) 23 mg/dL 7-23 GLUCOSE (test code = 5821867633) 102 mg/dL 70-110 CREATININE (test code = 2160-0) 1.53 mg/dL 0.60-1.25 H CALCIUM (test code = 3073574320) 8.3 mg/dL 8.6-10.6 L eGFR (test code = 61784-7) 52.7 mL/min/1.73m2 CKD-EPI eGFR (2020). Assuming creatinine has been stable day-to-day for at least three months, the eGFR indicates Category G3a (45 - 59 mL/min/1.73 m2) Lab Interpretation (test code = 61738-4) [facility] use with [facility] Infusion)2024-07-15 07:35:06* Test Item Value Reference Range Interpretation Comme [facility] APTT Patient (test code = 3173-2) 60 26-36 H Lab Interpretation (test cod e = 05839-6) [facility]normal [facility] use with [facility] Infusion)2024-07-15 07:35:06* Test Item Value Reference Range Interpretation Comme nts APTT Patient (test code = 3173-2) 60 26-36 H Lab Interpretation (test cod e = 87345-6) [facility] use with [facility] Infusion)2024-07-15 07:35:06* Test Item Value Reference Range Interpretation Comme nts APTT Patient (test code = 3173-2) 60 26-36 H Lab Interpretation (test cod e = 38466-1) [facility]normal [facility] with [id number] 07:29:28* Test Item Value Reference Range Interpretation Comme nts WBC (test code = 6690-2) 5.24 4.20-10.70 RBC (test code = 789-8) 5.78 4.26-5.52 H HGB (test code = 718-7) 14.6 g/dL 12.2-16.4 HCT (test code = 4544-3) 47.0 % 38.4-49.3 MCV (test code = 787-2) 81.3 fL 81.7-95.6 L MCH (test code = 785-6) 25.3 pg 26.1-32.7 L MCHC (test code = 786-4) 31.1 g/dL 31.2-35.0 L RDW-SD (test code = 98394-7) 50.1 fL 38.5-51.6 RDW-CV (test code = 788-0) 17.9 % 12.1-15.4 H PLT (test code = 777-3) 220 150-328 MPV (test code = 20607-4) 10.8 fL 9.8-13.0 NRBC/100 WBC (test code = 4429618504) 0.0 0.0-10.0 NRBC x10^3 (test code = 6251149417) See_Comment [Automated [employer]] The system which generated this result transmitted reference range: 10*3/?L. The reference range was not used to interpret this result as normal/abnormal. GRAN MAT (NEUT) % (test code = 770-8) 44.6 % IMM GRAN % (test code = 4048468862) 0.20 % LYMPH % (test code = 736-9) 38.9 % MONO % (test code = 5905-5) 13.0 % EOS % (test code = 713-8) 2.9 % BASO % (test code = 706-2) 0.4 % GRAN MAT x10^3(ANC) (test code = 3928580223) 2.34 10*3/uL 1.99-6.95 IMM GRAN x10^3 (test code = 0407881810) 0.00-0.06 LYMPH x10^3 (test code = 731-0) 2.04 10*3/uL 1.09-3.23 MONO x10^3 (test code = 742-7) 0.68 10*3/uL 0.36-1.02 EOS x10^3 (test code = 711-2) 0.15 10*3/uL 0.06-0.53 BASO x10^3 (test code = 704-7) 0.01-0.09 Lab Interpretation (test code = 80997-9) Abnormal [facility] with [id number] 07:29:28* Test Item Value Reference Range Interpretation Comme nts WBC (test code = 6690-2) 5.24 4.20-10.70 RBC (test code = 789-8) 5.78 4.26-5.52 H HGB (test code = 718-7) 14.6 g/dL 12.2-16.4 HCT (test code = 4544-3) 47.0 % 38.4-49.3 MCV (test code = 787-2) 81.3 fL 81.7-95.6 L MCH (test code = 785-6) 25.3 pg 26.1-32.7 L MCHC (test code = 786-4) 31.1 g/dL 31.2-35.0 L RDW-SD (test code = 78177-3) 50.1 fL 38.5-51.6 RDW-CV (test code = 788-0) 17.9 % 12.1-15.4 H PLT (test code = 777-3) 220 150-328 MPV (test code = 27569-9) 10.8 fL 9.8-13.0 NRBC/100 WBC (test code = 4766981911) 0.0 0.0-10.0 NRBC x10^3 (test code = 4530555081) See_Comment [Automated messa ge] The system which generated this result transmitted reference range: 10*3/?L. The reference range was not used to interpret this result as normal/abnormal. GRAN MAT (NEUT) % (test code = 770-8) 44.6 % IMM GRAN % (test code = 9971639240) 0.20 % LYMPH % (test code = 736-9) 38.9 % MONO % (test code = 5905-5) 13.0 % EOS % (test code = 713-8) 2.9 % BASO % (test code = 706-2) 0.4 % GRAN MAT x10^3(ANC) (test code = 3199833694) 2.34 10*3/uL 1.99-6.95 IMM GRAN x10^3 (test code = 2246353905) 0.00-0.06 LYMPH x10^3 (test code = 731-0) 2.04 10*3/uL 1.09-3.23 MONO x10^3 (test code = 742-7) 0.68 10*3/uL 0.36-1.02 EOS x10^3 (test code = 711-2) 0.15 10*3/uL 0.06-0.53 BASO x10^3 (test code = 704-7) 0.01-0.09 Lab Interpretation (test code = 84080-7) Abnormal [facility] with [id number] 07:29:28* Test Item Value Reference Range Interpretation Comme nts WBC (test code = 6690-2) 5.24 4.20-10.70 RBC (test code = 789-8) 5.78 4.26-5.52 H HGB (test code = 718-7) 14.6 g/dL 12.2-16.4 HCT (test code = 4544-3) 47.0 % 38.4-49.3 MCV (test code = 787-2) 81.3 fL 81.7-95.6 L MCH (test code = 785-6) 25.3 pg 26.1-32.7 L MCHC (test code = 786-4) 31.1 g/dL 31.2-35.0 L RDW-SD (test code = 81478-3) 50.1 fL 38.5-51.6 RDW-CV (test code = 788-0) 17.9 % 12.1-15.4 H PLT (test code = 777-3) 220 150-328 MPV (test code = 12798-9) 10.8 fL 9.8-13.0 NRBC/100 WBC (test code = 8939059643) 0.0 0.0-10.0 NRBC x10^3 (test code = 1430723880) See_Comment [Automated messa ge] The system which generated this result transmitted reference range: 10*3/?L. The reference range was not used to interpret this result as normal/abnormal. GRAN MAT (NEUT) % (test code = 770-8) 44.6 % IMM GRAN % (test code = 2117274212) 0.20 % LYMPH % (test code = 736-9) 38.9 % MONO % (test code = 5905-5) 13.0 % EOS % (test code = 713-8) 2.9 % BASO % (test code = 706-2) 0.4 % GRAN MAT x10^3(ANC) (test code = 4474598604) 2.34 10*3/uL 1.99-6.95 IMM GRAN x10^3 (test code = 2976311914) 0.00-0.06 LYMPH x10^3 (test code = 731-0) 2.04 10*3/uL 1.09-3.23 MONO x10^3 (test code = 742-7) 0.68 10*3/uL 0.36-1.02 EOS x10^3 (test code = 711-2) 0.15 10*3/uL 0.06-0.53 BASO x10^3 (test code = 704-7) 0.01-0.09 Lab Interpretation (test code = 01740-6) Abnormal [facility] GLUCOSE (AUTOMATED)2024-07-15 02:55:20* Test Item Value Reference Range Interpretation Comme nts POCT GLU (test code = 9924023974) 120 mg/dL 70-110 H Lab Interpretation (test cod e = 71696-6) Abnormal [facility] GLUCOSE (AUTOMATED)2024-07-15 02:55:20* Test Item Value Reference Range Interpretation Comme nts POCT GLU (test code = 2075116463) 120 mg/dL 70-110 H Lab Interpretation (test cod e = 81842-1) Abnormal [facility] GLUCOSE (AUTOMATED)2024-07-15 02:55:20* Test Item Value Reference Range Interpretation Comme nts POCT GLU (test code = 7533351561) 120 mg/dL 70-110 H Lab Interpretation (test cod e = 59101-1) Abnormal [facility] GLUCOSE (AUTOMATED)2024-07-14 22:21:48* Test Item Value Reference Range Interpretation Comme nts POCT GLU (test code = 9481084042) 82 mg/dL 70-110 Lab Interpretation (test cod e = 06194-0) Normal [facility] GLUCOSE (AUTOMATED)2024-07-14 22:21:48* Test Item Value Reference Range Interpretation Comme nts POCT GLU (test code = 7042568905) 82 mg/dL 70-110 Lab Interpretation (test cod e = 30429-6) Normal [facility] GLUCOSE (AUTOMATED)2024-07-14 22:21:48* Test Item Value Reference Range Interpretation Comme nts POCT GLU (test code = 7225099944) 82 mg/dL 70-110 Lab Interpretation (test cod e = 77091-4) Normal [facility] ([facility]E) [id number] 20:59:32* Test Item Value Reference Range Interpretation Comme nts Height (test code = 4317168006) 74 in Weight (test code = 8079247725) 298 lbs Systolic BP (test code = 5866885963) 133 mmHg Diastolic BP (test code = 1013200801) 94 mmHg Heart Rate (test code = 2318023916) 86 bpm LVOT stroke volume (test code = 8618911805) 21.80 cm3 EF(Teich) (test code = 3669956379) 14.10 % LVIDD (test code = 8494750944) 8.60 cm LVIDS (test code = 0717952922) 8.00 cm Left Ventricular End Systolic Volume by Teichholz Method (test code = 3559065) 347.9 mL Left Ventricular End Diastolic Volume by Teichholz Method (test code = 4804751) 404.9 mL IVS (test code = 5754544133) 1.32 cm LVPWD (test code = 0669856559) 0.86 cm LVOT diameter (test code = 7487029325) 2.13 cm LVOT area (test code = 3196752577) 3.60 cm2 FS (test code = 2708168993) 7 % MV Peak E Sommer (test code = 3312810538) 110.0 cm/s MV Peak A Sommer (test code = 8725052713) 85.4 cm/s E/A ratio (test code = 0230071692) 1.29 ratio E wave decelartion time (test code = 7264560911) 0.15 s LA Volume Index (BP) (test code = 1456869852) 45.3 mL/m2 LA volume (BP) (test code = 0691030691) 116.7 mL LVOT peak sommer (test code = 0721621511) 49.8 cm/s LVOT mn grad (test code = 9672431393) 0.5 mmHg BSA (test code = 7741573407) 2.6 m2 LA size (test code = 8590464500) 4.7 cm LAV(MOD-sp2) (test code = 1622857418) 109.40 mL LAV(MOD-sp4) (test code = 7682400445) 92.10 mL Tapse (test code = 4137665837) 1.83 cm Ao peak sommer (test code = 4372886728) 62.7 cm/s AV LVOT peak gradient (test code = 4751857543) 0.99 mmHg LVOT peak VTI (test code = 9567429096) 6.1 cm AV area peak sommer (test code = 5489442251) 2.8 cm2 LV V1 mean (test code = 8132299378) 35.10 cm/s Ao max PG (test code = 6213339751) 1.57 mm[Hg] MV Prop V (test code = 6923278626) 40.30 cm/s TR Peak Sommer (test code = 2705119596) 296.6 cm/s Triscuspid Valve Regurgitation Peak Gradient (test code = 1590407125) 35.2 mmHg Ao root diam (test code = 5278614063) 3.50 cm AV peak gradient (test code = 8813864823) 1.57 mmHg Aortic root (test code = 5507840530) 3.5 cm Ao root annulus (test code = 8050168277) 3.5 cm PW (test code = 5347059210) 0.86 cm 0.6-1.1 EF - 2D (test code = 24752374) 14.10 % Interventricular Septum Diastolic Thickness by 2D (test code = 9496674) 1.32 cm RA A4Cs (test code = 0451183511) 20.00 cm2 TASV (test code = 8594636430) 11.9 cm/s IVC Diam Exp(MM) (test code = 6389500871) 1.63 cm IVC Diam Ins(MM) (test code = 0173485021) 0.97 cm RV-covarrubias mid d (test code = 5884886472) 4.0 cm LV Diastolic Volume (BP) (test code = 1180845157) 399.2 mL LV Diastolic Volume Index (BP) (test code = 6235853692) 153.5 mL/m2 Radiology Study observation (narrative) (test code = 82362-5) JACOB (test code = JACOB) ?Left?Ventricle: Left ventricle is severely dilated. Dilated by LV volume index calculation. ?Normal wall thickness. Severely increased ventricular mass. There is eccentric hypertrophy. Severe global hypokinesis present. Severely reduced systolic function with a visually estimated EF of 5 - 10%. There is grade 2 diastolic dysfunction. Elevated left ventricular filling pressure. Cannot exclude small apical thrombus. ?Right?Ventricle: Right ventricle is mildly dilated. Normal systolic function. TAPSE is 1.83 cm. TDI-derived tricuspid annular systolic velocity (TDI S') is 11.9 cm/s. There is a pacemaker lead in the right ventricle. ?Left?Atrium: Left atrium is moderately dilated. Left atrium volume index is 45.3 mL/m2. ?Tricuspid?Valve: Tricuspid valve structure is normal. Mild transvalvular regurgitation. Right ventricular systolic pressure is 40-45 mmHg. No stenosis. ?IVC/SVC: IVC diameter is less than or equal to 21 mm and decreases less than 50% during inspiration; therefore the estimated right atrial pressure is intermediate (~8 mmHg). Left VentricleLeft ventricle is severely dilated. Dilated by LV volume index calculation. Normal wall thickness. Severely increased ventricular mass. There is eccentric hypertrophy. Severe global hypokinesis present. Severely reduced systolic function with a visually estimated EF of 5 - 10%. There is grade 2 diastolic dysfunction. Elevated left ventricular filling pressure. Cannot exclude small apical thrombus.Right VentricleRight ventricle is mildly dilated. Normal systolic function. TAPSE is 1.83 cm. TDI-derived tricuspid annular systolic velocity (TDI S') is 11.9 cm/s. There is a pacemaker lead in the right ventricle.Left AtriumLeft atrium is moderately dilated. Left atrium volume index is 45.3 mL/m2.Right AtriumRight atrium is mildly dilated. Lead present in the right atrium.IVC/SVCIVC diameter is less than or equal to 21 mm and decreases less than 50% during inspiration; therefore the estimated right atrial pressure is intermediate (~8 mmHg).Mitral ValveMitral valve structure is normal. Trace transvalvular regurgitation. No stenosis.Tricuspid ValveTricuspid valve structure is normal. Mild transvalvular regurgitation. Right ventricular systolic pressure is 40-45 mmHg. No stenosis.Aortic ValveTricuspid. Mildly thickened cusps. No transvalvular regurgitation. No hemodynamically significant .Pulmonic ValveNot well visualized. Trace transvalvular regurgitation. No stenosis.Ascending AortaNormal sized sinus of Valsalva and ascending aorta.PericardiumThe pericardium is normal. No pericardial effusion.Study DetailsA complete echocardiogram was performed using 2D, color flow Doppler and spectral Doppler. 5 mL of Lumason ultrasound enhancing agent used. [facility] ([facility] [id number] 20:59:32* Test Item Value Reference Range Interpretation Comme nts Height (test code = 4602932831) 74 in Weight (test code = 9187648137) 298 lbs Systolic BP (test code = 8347810390) 133 mmHg Diastolic BP (test code = 8510430266) 94 mmHg Heart Rate (test code = 0866749316) 86 bpm LVOT stroke volume (test code = 9782154556) 21.80 cm3 EF(Teich) (test code = 4311975023) 14.10 % LVIDD (test code = 4196893017) 8.60 cm LVIDS (test code = 1392633518) 8.00 cm Left Ventricular End Systolic Volume by Teichholz Method (test code = 9891047) 347.9 mL Left Ventricular End Diastolic Volume by Teichholz Method (test code = 2482947) 404.9 mL IVS (test code = 0491442034) 1.32 cm LVPWD (test code = 6624520947) 0.86 cm LVOT diameter (test code = 4396374021) 2.13 cm LVOT area (test code = 9273214131) 3.60 cm2 FS (test code = 4813013828) 7 % MV Peak E Sommer (test code = 2600337020) 110.0 cm/s MV Peak A Sommer (test code = 9008524739) 85.4 cm/s E/A ratio (test code = 8001096012) 1.29 ratio E wave decelartion time (test code = 2651945361) 0.15 s LA Volume Index (BP) (test code = 2151409720) 45.3 mL/m2 LA volume (BP) (test code = 8008403594) 116.7 mL LVOT peak sommer (test code = 4665613471) 49.8 cm/s LVOT mn grad (test code = 6797706105) 0.5 mmHg BSA (test code = 8422613513) 2.6 m2 LA size (test code = 2104975559) 4.7 cm LAV(MOD-sp2) (test code = 1163779240) 109.40 mL LAV(MOD-sp4) (test code = 8651665620) 92.10 mL Tapse (test code = 1672184634) 1.83 cm Ao peak sommer (test code = 7270565307) 62.7 cm/s AV LVOT peak gradient (test code = 9181882873) 0.99 mmHg LVOT peak VTI (test code = 0018561086) 6.1 cm AV area peak sommer (test code = 3618376258) 2.8 cm2 LV V1 mean (test code = 8034824326) 35.10 cm/s Ao max PG (test code = 2175608697) 1.57 mm[Hg] MV Prop V (test code = 4928051467) 40.30 cm/s TR Peak Sommer (test code = 2427233744) 296.6 cm/s Triscuspid Valve Regurgitation Peak Gradient (test code = 6880782192) 35.2 mmHg Ao root diam (test code = 0383595587) 3.50 cm AV peak gradient (test code = 9413897555) 1.57 mmHg Aortic root (test code = 1060631548) 3.5 cm Ao root annulus (test code = 0945373187) 3.5 cm PW (test code = 3811658640) 0.86 cm 0.6-1.1 EF - 2D (test code = 97021515) 14.10 % Interventricular Septum Diastolic Thickness by 2D (test code = 4809482) 1.32 cm RA A4Cs (test code = 8950697539) 20.00 cm2 TASV (test code = 3632696422) 11.9 cm/s IVC Diam Exp(MM) (test code = 6409436565) 1.63 cm IVC Diam Ins(MM) (test code = 9935856674) 0.97 cm RV-covarrubias mid d (test code = 4515403443) 4.0 cm LV Diastolic Volume (BP) (test code = 9141697674) 399.2 mL LV Diastolic Volume Index (BP) (test code = 7145756235) 153.5 mL/m2 Radiology Study observation (narrative) (test code = 20114-9) JACOB (test code = JACOB) ?Left?Ventricle: Left ventricle is severely dilated. Dilated by LV volume index calculation. ?Normal wall thickness. Severely increased ventricular mass. There is eccentric hypertrophy. Severe global hypokinesis present. Severely reduced systolic function with a visually estimated EF of 5 - 10%. There is grade 2 diastolic dysfunction. Elevated left ventricular filling pressure. Cannot exclude small apical thrombus. ?Right?Ventricle: Right ventricle is mildly dilated. Normal systolic function. TAPSE is 1.83 cm. TDI-derived tricuspid annular systolic velocity (TDI S') is 11.9 cm/s. There is a pacemaker lead in the right ventricle. ?Left?Atrium: Left atrium is moderately dilated. Left atrium volume index is 45.3 mL/m2. ?Tricuspid?Valve: Tricuspid valve structure is normal. Mild transvalvular regurgitation. Right ventricular systolic pressure is 40-45 mmHg. No stenosis. ?IVC/SVC: IVC diameter is less than or equal to 21 mm and decreases less than 50% during inspiration; therefore the estimated right atrial pressure is intermediate (~8 mmHg). Left VentricleLeft ventricle is severely dilated. Dilated by LV volume index calculation. Normal wall thickness. Severely increased ventricular mass. There is eccentric hypertrophy. Severe global hypokinesis present. Severely reduced systolic function with a visually estimated EF of 5 - 10%. There is grade 2 diastolic dysfunction. Elevated left ventricular filling pressure. Cannot exclude small apical thrombus.Right VentricleRight ventricle is mildly dilated. Normal systolic function. TAPSE is 1.83 cm. TDI-derived tricuspid annular systolic velocity (TDI S') is 11.9 cm/s. There is a pacemaker lead in the right ventricle.Left AtriumLeft atrium is moderately dilated. Left atrium volume index is 45.3 mL/m2.Right AtriumRight atrium is mildly dilated. Lead present in the right atrium.IVC/SVCIVC diameter is less than or equal to 21 mm and decreases less than 50% during inspiration; therefore the estimated right atrial pressure is intermediate (~8 mmHg).Mitral ValveMitral valve structure is normal. Trace transvalvular regurgitation. No stenosis.Tricuspid ValveTricuspid valve structure is normal. Mild transvalvular regurgitation. Right ventricular systolic pressure is 40-45 mmHg. No stenosis.Aortic ValveTricuspid. Mildly thickened cusps. No transvalvular regurgitation. No hemodynamically significant .Pulmonic ValveNot well visualized. Trace transvalvular regurgitation. No stenosis.Ascending AortaNormal sized sinus of Valsalva and ascending aorta.PericardiumThe pericardium is normal. No pericardial effusion.Study DetailsA complete echocardiogram was performed using 2D, color flow Doppler and spectral Doppler. 5 mL of Lumason ultrasound enhancing agent used. [facility] [id number] 20:59:32* Test Item Value Reference Range Interpretation Comme nts Height (test code = 4026597688) 74 in Weight (test code = 3921444500) 298 lbs Systolic BP (test code = 4356463314) 133 mmHg Diastolic BP (test code = 0371922772) 94 mmHg Heart Rate (test code = 0510163445) 86 bpm LVOT stroke volume (test code = 7973723757) 21.80 cm3 EF(Teich) (test code = 4879201702) 14.10 % LVIDD (test code = 5800968141) 8.60 cm LVIDS (test code = 0705403557) 8.00 cm Left Ventricular End Systolic Volume by Teichholz Method (test code = 2891911) 347.9 mL Left Ventricular End Diastolic Volume by Teichholz Method (test code = 9530323) 404.9 mL IVS (test code = 3197186728) 1.32 cm LVPWD (test code = 9076904644) 0.86 cm LVOT diameter (test code = 6757510330) 2.13 cm LVOT area (test code = 6991113517) 3.60 cm2 FS (test code = 3697658858) 7 % MV Peak E Sommer (test code = 7220416174) 110.0 cm/s MV Peak A Sommer (test code = 2586099087) 85.4 cm/s E/A ratio (test code = 4212321442) 1.29 ratio E wave decelartion time (test code = 8996323567) 0.15 s LA Volume Index (BP) (test code = 0654108533) 45.3 mL/m2 LA volume (BP) (test code = 5578527896) 116.7 mL LVOT peak sommer (test code = 6342898024) 49.8 cm/s LVOT mn grad (test code = 6984982233) 0.5 mmHg BSA (test code = 4875556133) 2.6 m2 LA size (test code = 2236502799) 4.7 cm LAV(MOD-sp2) (test code = 1643114675) 109.40 mL LAV(MOD-sp4) (test code = 6905313160) 92.10 mL Tapse (test code = 5081445097) 1.83 cm Ao peak sommer (test code = 0919336678) 62.7 cm/s AV LVOT peak gradient (test code = 6456774517) 0.99 mmHg LVOT peak VTI (test code = 3429961463) 6.1 cm AV area peak sommer (test code = 4855740540) 2.8 cm2 LV V1 mean (test code = 2376840010) 35.10 cm/s Ao max PG (test code = 4870157386) 1.57 mm[Hg] MV Prop V (test code = 1314539463) 40.30 cm/s TR Peak Sommer (test code = 0649108235) 296.6 cm/s Triscuspid Valve Regurgitation Peak Gradient (test code = 9858660838) 35.2 mmHg Ao root diam (test code = 9821024654) 3.50 cm AV peak gradient (test code = 1803613468) 1.57 mmHg Aortic root (test code = 0345607012) 3.5 cm Ao root annulus (test code = 2000913678) 3.5 cm PW (test code = 5476360917) 0.86 cm 0.6-1.1 EF - 2D (test code = 68563049) 14.10 % Interventricular Septum Diastolic Thickness by 2D (test code = 7395399) 1.32 cm RA A4Cs (test code = 4997925465) 20.00 cm2 TASV (test code = 9763218122) 11.9 cm/s IVC Diam Exp(MM) (test code = 0120549934) 1.63 cm IVC Diam Ins(MM) (test code = 6898280811) 0.97 cm RV-covarrubias mid d (test code = 4335441423) 4.0 cm LV Diastolic Volume (BP) (test code = 7579479949) 399.2 mL LV Diastolic Volume Index (BP) (test code = 6218528907) 153.5 mL/m2 Radiology Study observation (narrative) (test code = 75223-7) JACOB (test code = JACOB) ?Left?Ventricle: Left ventricle is severely dilated. Dilated by LV volume index calculation. ?Normal wall thickness. Severely increased ventricular mass. There is eccentric hypertrophy. Severe global hypokinesis present. Severely reduced systolic function with a visually estimated EF of 5 - 10%. There is grade 2 diastolic dysfunction. Elevated left ventricular filling pressure. Cannot exclude small apical thrombus. ?Right?Ventricle: Right ventricle is mildly dilated. Normal systolic function. TAPSE is 1.83 cm. TDI-derived tricuspid annular systolic velocity (TDI S') is 11.9 cm/s. There is a pacemaker lead in the right ventricle. ?Left?Atrium: Left atrium is moderately dilated. Left atrium volume index is 45.3 mL/m2. ?Tricuspid?Valve: Tricuspid valve structure is normal. Mild transvalvular regurgitation. Right ventricular systolic pressure is 40-45 mmHg. No stenosis. ?IVC/SVC: IVC diameter is less than or equal to 21 mm and decreases less than 50% during inspiration; therefore the estimated right atrial pressure is intermediate (~8 mmHg). Left VentricleLeft ventricle is severely dilated. Dilated by LV volume index calculation. Normal wall thickness. Severely increased ventricular mass. There is eccentric hypertrophy. Severe global hypokinesis present. Severely reduced systolic function with a visually estimated EF of 5 - 10%. There is grade 2 diastolic dysfunction. Elevated left ventricular filling pressure. Cannot exclude small apical thrombus.Right VentricleRight ventricle is mildly dilated. Normal systolic function. TAPSE is 1.83 cm. TDI-derived tricuspid annular systolic velocity (TDI S') is 11.9 cm/s. There is a pacemaker lead in the right ventricle.Left AtriumLeft atrium is moderately dilated. Left atrium volume index is 45.3 mL/m2.Right AtriumRight atrium is mildly dilated. Lead present in the right atrium.IVC/SVCIVC diameter is less than or equal to 21 mm and decreases less than 50% during inspiration; therefore the estimated right atrial pressure is intermediate (~8 mmHg).Mitral ValveMitral valve structure is normal. Trace transvalvular regurgitation. No stenosis.Tricuspid ValveTricuspid valve structure is normal. Mild transvalvular regurgitation. Right ventricular systolic pressure is 40-45 mmHg. No stenosis.Aortic ValveTricuspid. Mildly thickened cusps. No transvalvular regurgitation. No hemodynamically significant .Pulmonic ValveNot well visualized. Trace transvalvular regurgitation. No stenosis.Ascending AortaNormal sized sinus of Valsalva and ascending aorta.PericardiumThe pericardium is normal. No pericardial effusion.Study DetailsA complete echocardiogram was performed using 2D, color flow Doppler and spectral Doppler. 5 mL of Lumason ultrasound enhancing agent used. [facility] GLUCOSE (AUTOMATED)2024-07-14 17:42:18* Test Item Value Reference Range Interpretation Comme nts POCT GLU (test code = 1255029754) 112 mg/dL 70-110 H Lab Interpretation (test cod e = 55780-1) Abnormal [facility] GLUCOSE (AUTOMATED)2024-07-14 17:42:18* Test Item Value Reference Range Interpretation Comme nts POCT GLU (test code = 0567875331) 112 mg/dL 70-110 H Lab Interpretation (test cod e = 95266-4) Abnormal [facility] GLUCOSE (AUTOMATED)2024-07-14 17:42:18* Test Item Value Reference Range Interpretation Comme nts POCT GLU (test code = 0635728990) 112 mg/dL 70-110 H Lab Interpretation (test cod e = 46643-0) Abnormal [facility] GLUCOSE (AUTOMATED)2024-07-14 14:12:17* Test Item Value Reference Range Interpretation Comme nts POCT GLU (test code = 6244337637) 100 mg/dL 70-110 Lab Interpretation (test cod e = 82633-1) Normal [facility] GLUCOSE (AUTOMATED)2024-07-14 14:12:17* Test Item Value Reference Range Interpretation Comme nts POCT GLU (test code = 0088552985) 100 mg/dL 70-110 Lab Interpretation (test cod e = 60956-2) Normal [facility] GLUCOSE (AUTOMATED)2024-07-14 14:12:17* Test Item Value Reference Range Interpretation Comme nts POCT GLU (test code = 3981106882) 100 mg/dL 70-110 Lab Interpretation (test cod e = 35386-2) Normal [facility] GLUCOSE (AUTOMATED)2024-07-14 04:15:43* Test Item Value Reference Range Interpretation Comme nts POCT GLU (test code = 7965835084) 106 mg/dL 70-110 Lab Interpretation (test cod e = 11261-6) Normal [facility] GLUCOSE (AUTOMATED)2024-07-14 04:15:43* Test Item Value Reference Range Interpretation Comme nts POCT GLU (test code = 9888550219) 106 mg/dL 70-110 Lab Interpretation (test cod e = 30766-2) Normal [facility] GLUCOSE (AUTOMATED)2024-07-14 04:15:43* Test Item Value Reference Range Interpretation Comme nts POCT GLU (test code = 9362788873) 106 mg/dL 70-110 Lab Interpretation (test cod e = 55245-1) Normal [facility] HospitalLacaic Acid Whole [id number] 00:55:40* Test Item Value Reference Range Interpretation Comme nts LACTIC ACID (test code = 4935059005) 1.51 mmol/L 0.50-2.20 Lab Interpretation (test cod e = 61070-5) Normal [facility] HospitalLactic Acid Whole [id number] 00:55:40* Test Item Value Reference Range Interpretation Comme nts LACTIC ACID (test code = 7522847437) 1.51 mmol/L 0.50-2.20 Lab Interpretation (test cod e = 67262-1) Normal [facility] HospitalL[facility] Acid Whole [id number] 00:55:40* Test Item Value Reference Range Interpretation Comme nts LACTIC ACID (test code = 8685096229) 1.51 mmol/L 0.50-2.20 Lab Interpretation (test cod e = 10504-6) Normal [facility] Chest 1 [id number] 18:40:36HISTORY: Heart failure. TECHNIQUE: Portable AP view of the chest is obtained. Comparison made with07/03/2024 study. FINDINGS: Moderate to severe cardiomegaly noted with congested centralpulmonary arteries and minimal peripheral interstitial pulmonary edema.Bibasilar congestion/atelectatic changes are seen. Minimal bilateralpleural effusion suspected. Multiple electrodes interpreted through the left subclavian appeared to bein good position.. CONCLUSIONS: Stable findings of moderate to severe cardiomegaly, congestedcentral pulmonary arteries and minimal pulmonary edema.[facility] Chest 1 2024-07-13 18:40:36HISTORY: Heart failure. TECHNIQUE: Portable AP view of the chest is obtained. Comparison made with07/03/2024 study. FINDINGS: Moderate to severe cardiomegaly noted with congested centralpulmonary arteries and minimal peripheral interstitial pulmonary edema.Bibasilar congestion/atelectatic changes are seen. Minimal bilateralpleural effusion suspected. Multiple electrodes interpreted through the left subclavian appeared to bein good position.. CONCLUSIONS: Stable findings of moderate to severe cardiomegaly, congestedcentral pulmonary arteries and minimal pulmonary edema.[facility] Chest 1 [id number] 18:40:36HISTORY: Heart failure. TECHNIQUE: Portable AP view of the chest is obtained. Comparison made with study. FINDINGS: Moderate to severe cardiomegaly noted with congested centralpulmonary arteries and minimal peripheral interstitial pulmonary edema.Bibasilar congestion/atelectatic changes are seen. Minimal bilateralpleural effusion suspected. Multiple electrodes interpreted through the left subclavian appeared to bein good position.. CONCLUSIONS: Stable findings of moderate to severe cardiomegaly, congestedcentral pulmonary arteries and minimal pulmonary edema.[facility] GLUCOSE (AUTOMATED)2024-07-04 17:55:31* Test Item Value Reference Range Interpretation Comme nts POCT GLU (test code = 6032825447) 97 mg/dL 70-110 Lab Interpretation (test cod e = 52019-1) Normal [facility] GLUCOSE (AUTOMATED)2024-07-04 13:46:04* Test Item Value Reference Range Interpretation Comme nts POCT GLU (test code = 9786976057) 89 mg/dL 70-110 Lab Interpretation (test cod e = 97334-7) Normal [facility] GLUCOSE (AUTOMATED)2024-07-04 02:33:00* Test Item Value Reference Range Interpretation Comme nts POCT GLU (test code = 0206000975) 108 mg/dL 70-110 Lab Interpretation (test cod e = 97789-5) Normal [facility] 1 [id number] 23:00:50History: chest pain . Exam: XR CHEST 1 VW Date: 07/03/2024 3:30 PM Ordering provider: MICHELLE MIRANDAComparison: 05/15/2024. Findings: Frontal view of the chest is obtained. Left-sided pacemaker ICD is noted. The cardiac silhouette is severelyenlarged. There is severe dextroscoliosis centered in themidthoracicspine. There are mild bilateral perihilar opacities. Small left pleuraleffusion is possible. No evidence of pneumothorax.[facility] HospitalTROPONIN [id number] 22:22:48* Test Item Value Reference Range Interpretation Comme nts TROPONIN I (test code = 4281117696) 0.047 ng/mL <=0.034 H JACOB (test code = JACOB) Reference (Normal) [...] of biotin. Lab Interpretation (test code = 75481-1) Abnormal [facility] HospitalN-TERMINAL [id number] 22:20:07* Test Item Value Reference Range Interpretation Comme nts NT-proBNP (test code = 80750-4) 7260 pg/mL <=125 H JACOB (test code = JACOB) Positive: Heart Failure Likely Lab Interpretation (test code = 48732-2) Abnormal [facility] HospitalCOM. METABOLIC PANEL (66016)2024-07-03 22:11:08* Test Item Value Reference Range Interpretation Comme nts NA (test code = 1502533626) 141 mmol/L 135-145 K (test code = 0651027960) 3.5 mmol/L 3.5-5.0 CL (test code = 7824875576) 106 mmol/L 98-108 CO2 TOTAL (test code = 9298760723) 26 mmol/L 23-31 AGAP (test code = 2028772826) 9 2-16 BUN (test code = 3056391687) 27 mg/dL 7-23 H GLUCOSE (test code = 4606806221) 69 mg/dL 70-110 L CREATININE (test code = 2160-0) 2.09 mg/dL 0.60-1.25 H TOTAL BILI (test code = 8195534845) 0.8 mg/dL 0.1-1.1 CALCIUM (test code = 0389115720) 9.0 mg/dL 8.6-10.6 T PROTEIN (test code = 7053398805) 7.3 g/dL 6.3-8.2 ALBUMIN (test code = 7689532769) 3.9 g/dL 3.5-5.0 ALK PHOS (test code = 1053569620) 79 U/L 34-122 ALTv (test code = 1742-6) 18 U/L 5-50 AST(SGOT) (test code = 5381505229) 34 U/L 13-40 eGFR (test code = 71842-3) 36.2 mL/min/1.73m2 CKD-EPI eGFR (2020). Assuming creatinine has been stable day-to-day for at least three months, the eGFR indicates Category G3b (30 - 44 mL/min/1.73 m2) Lab Interpretation (test code = 63825-3) [facility]normal [facility] HospitalLIPASE2024-12-01 22:10:48* Test Item Value Reference Range Interpretation Comme nts LIPASE (test code = 0196117115) 73 U/L 0-220 Lab Interpretation (test cod e = 93218-6) Normal [facility] HospitalCBC WITH [id number] 21:45:10* Test Item Value Reference Range Interpretation Comme nts WBC (test code = 6690-2) 5.62 4.20-10.70 RBC (test code = 789-8) 5.39 4.26-5.52 HGB (test code = 718-7) 14.0 g/dL 12.2-16.4 HCT (test code = 4544-3) 46.0 % 38.4-49.3 MCV (test code = 787-2) 85.3 fL 81.7-95.6 MCH (test code = 785-6) 26.0 pg 26.1-32.7 L MCHC (test code = 786-4) 30.4 g/dL 31.2-35.0 L RDW-SD (test code = 50039-1) 52.2 fL 38.5-51.6 H RDW-CV (test code = 788-0) 17.2 % 12.1-15.4 H PLT (test code = 777-3) 193 150-328 MPV (test code = 06654-1) 10.8 fL 9.8-13.0 NRBC/100 WBC (test code = 5388195068) 0.0 0.0-10.0 NRBC x10^3 (test code = 0724899957) See_Comment [Automated messa ge] The system which generated this result transmitted reference range: 10*3/?L. The reference range was not used to interpret this result as normal/abnormal. GRAN MAT (NEUT) % (test code = 770-8) 45.1 % IMM GRAN % (test code = 3838383996) 0.20 % LYMPH % (test code = 736-9) 38.6 % MONO % (test code = 5905-5) 14.2 % EOS % (test code = 713-8) 1.4 % BASO % (test code = 706-2) 0.5 % GRAN MAT x10^3(ANC) (test code = 5033081371) 2.53 10*3/uL 1.99-6.95 IMM GRAN x10^3 (test code = 2355396600) 0.00-0.06 LYMPH x10^3 (test code = 731-0) 2.17 10*3/uL 1.09-3.23 MONO x10^3 (test code = 742-7) 0.80 10*3/uL 0.36-1.02 EOS x10^3 (test code = 711-2) 0.08 10*3/uL 0.06-0.53 BASO x10^3 (test code = 704-7) 0.03 10*3/uL 0.01-0.09 Lab Interpretation (test code = 76086-5) [facility]normal [facility] HospitalCritical [id number] 21:12:00Michelle Miranda MD ? ? 07/03/2024 ?8:31 PMCritical Care Performed by: Michelle Miranda MDAuthorizedby: Michelle Miranda MD ?Critical care provider statement: ?Critical care time (minutes): ?60 ?Critical care time was exclusive of: ?Separately billable procedures and treating other patients and teaching time ?Critical care was necessary to treat or prevent imminent or life-threatening deterioration of the following conditions: ?Cardiac failure and circulatory failure ?Critical care was time spent personally by me on the following activities: ?Development of treatment plan with patient or surrogate, evaluation of patient's response to treatment, examination of patient, obtaining history frompatient or surrogate, ordering and performing treatments and interventions, ordering and review of l aboratory studies, ordering and review of radiographic studies, pulse oximetry, re-evaluation of patient's condition and review of old charts ?Care discussed with: admitting provider ?Comments: ? Dueto a high probability of clinically significant, life [...] evaluation of patient's response to treatment; frequent r eassessment; and, discussions with other providers.This critical care time was performed to assess and manage the high probability of imminent, life- threatening deterioration that could result in multi-organ failure. It was exclusive of separately billable procedures and treating other patients. [facility] GLUCOSE (AUTOMATED)2024-05-17 21:59:02* Test Item Value Reference Range Interpretation Comme nts POCT GLU (test code = 1320225574) 95 mg/dL 70-110 Lab Interpretation (test cod e = 81785-1) [id number]:41:19* Test Item Value Reference Range Interpretation Comme nts TROPONIN I (test code = 8898050163) 0.017 ng/mL <=0.034 JACOB (test code = JACOB) Reference (Normal) [...] of biotin. Lab Interpretation (test code = 78362-4) Normal [facility] GLUCOSE (AUTOMATED)2024-05-17 16:46:03* Test Item Value Reference Range Interpretation Comme nts POCT GLU (test code = 8138673944) 93 mg/dL 70-110 Lab Interpretation (test cod e = 42791-1) Normal [facility] GLUCOSE (AUTOMATED)2024-05-17 12:38:30* Test Item Value Reference Range Interpretation Comme nts POCT GLU (test code = 1185037417) 87 mg/dL 70-110 Lab Interpretation (test cod e = 79501-5) Normal [facility] GLUCOSE (AUTOMATED)2024-05-17 01:07:02* Test Item Value Reference Range Interpretation Comme nts POCT GLU (test code = 4100564335) 92 mg/dL 70-110 Lab Interpretation (test cod e = 89093-7) Normal [facility] GLUCOSE (AUTOMATED)2024-05-16 21:12:28* Test Item Value Reference Range Interpretation Comme nts POCT GLU (test code = 4683383163) 76 mg/dL 70-110 Lab Interpretation (test cod e = 46653-3) Normal [facility] GLUCOSE (AUTOMATED)2024-05-16 19:09:28* Test Item Value Reference Range Interpretation Comme nts POCT GLU (test code = 4014450925) 102 mg/dL 70-110 Lab Interpretation (test cod e = 19357-3) Normal [facility] GLUCOSE (AUTOMATED)2024-05-16 16:09:25* Test Item Value Reference Range Interpretation Comme nts POCT GLU (test code = 4686283916) 67 mg/dL 70-110 L Lab Interpretation (test cod e = 02656-2) Abnormal [facility] GLUCOSE (AUTOMATED)2024-05-16 12:40:56* Test Item Value Reference Range Interpretation Comme nts POCT GLU (test code = 5304458985) 83 mg/dL 70-110 Lab Interpretation (test cod e = 47484-7) Normal [facility] GLUCOSE (AUTOMATED)2024-05-16 02:07:26* Test Item Value Reference Range Interpretation Comme nts POCT GLU (test code = 2292791404) 87 mg/dL 70-110 Lab Interpretation (test cod e = 56415-5) Normal [facility]2024-[facility]-16 00:28:47* Test Item Value Reference Range Interpretation Comme nts Height (test code = 6768621022) 74 in Weight (test code = 5186873152) 297 lbs Systolic BP (test code = 9077099229) 132 mmHg Diastolic BP (test code = 3210961368) 87 mmHg Heart Rate (test code = 7529717458) 79 bpm RVOT diameter (test code = 4348791054) 2.8 cm RVOT Proximal Diameter (test code = 0895754512) 3.70 cm MR max PG (test code = 9911392331) 31.40 mm[Hg] MR max sommer (test code = 0924174955) 280.00 cm/s Ao root diam (test code = 0498175836) 3.40 cm Mr max sommer (test code = 0996494362) 280.0 m/s Aortic root (test code = 7698094713) 3.4 cm Ao root annulus (test code = 9010244931) 3.4 cm BSA (test code = 1726159001) 2.6 m2 LA size (test code = 8879442441) 4.1 cm ACS (test code = 8026890928) 2.50 cm TR Peak Sommer (test code = 2287869181) 317.6 cm/s Triscuspid Valve Regurgitation Peak Gradient (test code = 1441084478) 37.8 mmHg PV PEAK VELOCITY (test code = 8151596985) 67.6 cm/s PV peak gradient (test code = 6420474287) 1.83 mmHg LVIDD (test code = 8963292064) 6.30 cm Left Ventricular End Diastolic Volume by Teichholz Method (test code = 0636285) 202.4 mL IVS (test code = 5570473070) 2.15 cm Interventricular Septum Diastolic Thickness by 2D (test code = 2016690) 2.15 cm LVPWD (test code = 0146014515) 2.01 cm PW (test code = 7807275357) 2.01 cm 0.6-1.1 EF(Teich) (test code = 3543930048) 7.00 % LVIDS (test code = 9772532218) 6.10 cm Left Ventricular End Systolic Volume by Teichholz Method (test code = 3132087) 188.2 mL FS (test code = 5760264944) 3 % EF - 2D (test code = 75158614) 7.00 % A4C EF (test code = 9710779524) 7.70 % EF(sp4-el) (test code = 2942249893) 7.80 % SV(MOD-sp4) (test code = 4776572416) 22.50 mL SV(sp4-el) (test code = 0416336867) 23.70 mL MV E-F slope (test code = 0485485471) 42.30 cm/s MV Peak E Sommer (test code = 5717844497) 108.5 cm/s MV valve area p 1/2 method (test code = 6771229320) 6.50 cm2 MV dec slope (test code = 8946959881) 942.60 cm/s2 MV P1/2t max sommer (test code = 2380428256) 109.50 cm/s LVOT peak sommer (test code = 1676469302) 81.2 cm/s LVOT mn grad (test code = 2820618323) 0.9 mmHg AV LVOT peak gradient (test code = 8476256127) 2.6 mmHg LVOT peak VTI (test code = 0862502628) 11.8 cm LV V1 mean (test code = 3921900077) 39.70 cm/s Aortic valve mean velocity (test code = 0186462231) 66.8 cm/s Ao peak sommer (test code = 3275170349) 109.1 cm/s Ao VTI (test code = 1023680430) 18.1 cm Ao max PG (test code = 9725625742) 4.80 mm[Hg] AV peak gradient (test code = 1510776270) 4.8 mmHg AV mean gradient (test code = 9919160006) 2.08 mmHg AV regurgitation pressure 1/2 time (test code = 7296601222) 424.9 ms AI dec slope (test code = 8585877558) 133.80 cm/s2 AI max sommer (test code = 2709826326) 194.10 cm/s AI max PG (test code = 1584634953) 15.10 mm[Hg] LAV(MOD-sp4) (test code = 5054574239) 97.70 mL LA Volume Index (BP) (test code = 7235352486) 40.7 mL/m2 LA volume (BP) (test code = 9605987295) 104.7 mL LAV(MOD-sp2) (test code = 3235137709) 107.20 mL LVOT stroke volume (test code = 4070423257) 57.10 cm3 LVOT diameter (test code = 4381478407) 2.49 cm LVOT area (test code = 3645008997) 4.90 cm2 AV area by cont VTI (test code = 0124297180) 3.2 cm2 AV area peak sommer (test code = 3558806257) 3.6 cm2 AV valve area (test code = 7611338403) 3.20 cm2 RVOT area (test code = 9029232893) 6.15 cm2 Radiology Study observation (narrative) (test code = 95787-3) JACOB (test code = JACOB) ?Left?Ventricle: Left ventricle is severely dilated. Severely increased wall thickness. Severely reduced systolic function with a visually estimated EF of 5 %. Diastolic dysfunction. ?Right?Ventricle: Right ventricle size is normal. Moderately reduced systolic function. There is a pacemaker lead in the right ventricle. ?Aorta: Mildly enlarged ascending aorta (3.6 cm). ?Left?Atrium: Left atrium is mildly dilated. ?Tricuspid?Valve: Mild transvalvular regurgitation. Right ventricular systolic pressure is 40-45 mmHg. Left VentricleLeft ventricle is severely dilated. Severely increased wall thickness. Severely reduced systolic function with a visually estimated EF of 5 %. Diastolic dysfunction.Right VentricleRight ventricle size is normal. Moderately reduced systolic function. There is a pacemaker lead in the right ventricle.Left AtriumLeft atrium is mildly dilated.Right AtriumRight atrium size is normal. Lead present in the right atrium.Mitral ValveMildly thickened leaflets. Mild mitral annular calcification. Trace transvalvular regurgitation. No stenosis.Tricuspid ValveTricuspid valve structure is normal. Mild transvalvular regurgitation. Right ventricular systolic pressure is 40-45 mmHg. No stenosis.Aortic ValveTricuspid. Trace transvalvular regurgitation. No evidence of aortic stenosis.Pulmonic ValveNot well visualized. Trace transvalvular regurgitation. No stenosis.Ascending AortaMildly enlarged ascending aorta (3.6 cm).PericardiumThe pericardium is normal. No pericardial effusion.Study DetailsStudy quality was adequate. A complete echocardiogram was performed using 2D, color flow Doppler and spectral Doppler. 5 mL of Lumason ultrasound enhancing agent used. [facility] BranchLipid Panel(76887)(Total Cholesterol, Triglycerides, HDL)2024-05-15 08:45:30* Test Item Value Reference Range Interpretation Comme nts CHOL (test code = 4626993692) 112 mg/dL 120-200 L HDL (test code = 3466118585) 37 mg/dL >=40 L HDLC RATIO (test code = 4058950965) 3.0 <=5.0 TRIG (test code = 2636331515) 74 mg/dL 30-170 LDL CHOL (test code = 29599-7) 60 mg/dL <=160 VLDL (test code = 3632941543) 15 mg/dL 5-60 Lab Interpretation (test cod e = 01229-7) Abnormal [facility] Hospital[facility]roponin [id number] 08:34:05* Test Item Value Reference Range Interpretation Comme nts TROPONIN I (test code = 4031787815) 0.049 ng/mL <=0.034 H JACOB (test code = JACOB) Reference (Normal) [...] of biotin. Lab Interpretation (test code = 01343-4) Abnormal [facility] HospitalN-TERMINAL DIS-[id number] 08:31:48* Test Item Value Reference Range Interpretation Comme nts NT-proBNP (test code = 29758-7) 71606 pg/mL <=125 H JACOB (test code = JACOB) Positive: Heart Failure Likely Lab Interpretation (test code = 31586-2) Abnormal [facility] HospitalHEPATIC FUNCTION PANEL (90966) (ALB,T.PRO,BILI T,BU/BC,ALT,AST,ALK PHOS)2024-05-15 08:24:47* Test Item Value Reference Range Interpretation Comme nts TOTAL BILI (test code = 6426150317) 1.6 mg/dL 0.1-1.1 H BILI UNCON (test code = 5914580938) 1.2 mg/dL 0.1-1.1 H BILI CONJ (test code = 6396879633) 0.0 mg/dL 0.0-0.3 T PROTEIN (test code = 7125162920) 7.3 g/dL 6.3-8.2 ALBUMIN (test code = 3074294323) 3.6 g/dL 3.5-5.0 ALK PHOS (test code = 1838034826) 64 U/L 34-122 ALTv (test code = 1742-6) 29 U/L 5-50 AST(SGOT) (test code = 6324701800) 39 U/L 13-40 Lab Interpretation (test cod e = 32331-6) Abnormal [facility] HospitalTroponin [id number] 06:18:18* Test Item Value Reference Range Interpretation Comme nts TROPONIN I (test code = 5592468684) 0.052 ng/mL <=0.034 H JACOB (test code = JACOB) Reference (Normal) [...] of biotin. Lab Interpretation (test code = 37449-3) Abnormal [facility]XR CHEST 1 [id number] 06:12:19Exam: Chest (1 View), 05/15/2024 12:15 AM. Ordering Physician: PIA WATTS. History: Chest pain.Technique: One view of the chest. Comparison: 04/04/2024. Findings: Pulse generator overlies the lefthemithorax, with electrode lead tipsprojecting at the left ventricle, possibly within a cardiac vein, and rightatrium and ventricle. Cardiac silhouette is moderately enlarged. There isno pneumothorax. Hazy left basilar opacity is noted. There is no focalconsolidation. ?Osseous structures show degenerative changes.[facility] HospitalN-Terminal Pro-Bnp 2024-05-15 06:09:01* Test Item Value Reference Range Interpretation Comme nts NT-proBNP (test code = 65001-8) 03767 pg/mL <=125 H JACOB (test code = JACOB) Positive: Heart Failure Likely Lab Interpretation (test code = 92070-3) Abnormal [facility]. Metabolic Panel (53860)2024-05-15 05:59:19* Test Item Value Reference Range Interpretation Comme nts NA (test code = 7813184388) 139 mmol/L 135-145 K (test code = 9468647004) 4.1 mmol/L 3.5-5.0 CL (test code = 4087166249) 108 mmol/L 98-108 CO2 TOTAL (test code = 0817861847) 23 mmol/L 23-31 AGAP (test code = 7470732402) 8 2-16 BUN (test code = 1474639232) 17 mg/dL 7-23 GLUCOSE (test code = 6818862161) 107 mg/dL 70-110 CREATININE (test code = 2160-0) 1.51 mg/dL 0.60-1.25 H TOTAL BILI (test code = 2489943382) 1.6 mg/dL 0.1-1.1 H CALCIUM (test code = 2743181023) 8.9 mg/dL 8.6-10.6 T PROTEIN (test code = 9750532822) 7.6 g/dL 6.3-8.2 ALBUMIN (test code = 0073281499) 3.9 g/dL 3.5-5.0 ALK PHOS (test code = 6484072346) 70 U/L 34-122 ALTv (test code = 1742-6) 31 U/L 5-50 AST(SGOT) (test code = 6520032418) 42 U/L 13-40 H eGFR (test code = 70963-6) 53.5 mL/min/1.73m2 CKD-EPI eGFR (2020). Assuming creatinine has been stable day-to-day for at least three months, the eGFR indicates Category G3a (45 - 59 mL/min/1.73 m2) Lab Interpretation (test code = 78615-7) Abnormal [facility] HospitalMagnesium2024-10-13 05:59:19* Test Item Value Reference Range Interpretation Comme nts MAGNESIUM (test code = 5586796030) 1.8 mg/dL 1.7-2.4 Lab Interpretation (test cod e = 38905-7) Normal [facility] HospitalLipase2024-10-13 05:58:59* Test Item Value Reference Range Interpretation Comme nts LIPASE (test code = 3945656039) 29 U/L 0-220 Lab Interpretation (test cod e = 33925-9) Normal [facility] HospitalCbc with [id number] 05:50:57* Test Item Value Reference Range Interpretation Comme nts WBC (test code = 6690-2) 5.32 4.20-10.70 RBC (test code = 789-8) 5.20 4.26-5.52 HGB (test code = 718-7) 13.9 g/dL 12.2-16.4 HCT (test code = 4544-3) 44.9 % 38.4-49.3 MCV (test code = 787-2) 86.3 fL 81.7-95.6 MCH (test code = 785-6) 26.7 pg 26.1-32.7 MCHC (test code = 786-4) 31.0 g/dL 31.2-35.0 L RDW-SD (test code = 83417-0) 50.0 fL 38.5-51.6 RDW-CV (test code = 788-0) 16.2 % 12.1-15.4 H PLT (test code = 777-3) 222 150-328 MPV (test code = 16011-6) 10.9 fL 9.8-13.0 NRBC/100 WBC (test code = 1642173494) 0.6 0.0-10.0 NRBC x10^3 (test code = 4318286480) 0.03 See_Comment [Automated messa ge] The system which generated this result transmitted reference range: 10*3/?L. The reference range was not used to interpret this result as normal/abnormal. GRAN MAT (NEUT) % (test code = 770-8) 53.5 % IMM GRAN % (test code = 8952628252) 0.20 % LYMPH % (test code = 736-9) 36.7 % MONO % (test code = 5905-5) 7.9 % EOS % (test code = 713-8) 1.3 % BASO % (test code = 706-2) 0.4 % GRAN MAT x10^3(ANC) (test code = 9093142639) 2.85 10*3/uL 1.99-6.95 IMM GRAN x10^3 (test code = 3626973406) 0.00-0.06 LYMPH x10^3 (test code = 731-0) 1.95 10*3/uL 1.09-3.23 MONO x10^3 (test code = 742-7) 0.42 10*3/uL 0.36-1.02 EOS x10^3 (test code = 711-2) 0.07 10*3/uL 0.06-0.53 BASO x10^3 (test code = 704-7) 0.01-0.09 Lab Interpretation (test code = 59015-8) Abnormal [facility] HospitalPOPR GLUCOSE (AUTOMATED)2024-04-06 12:39:51* Test Item Value Reference Range Interpretation Comme nts POCT GLU (test code = 6522633832) 87 mg/dL 70-110 Lab Interpretation (test cod e = 99368-6) Normal [facility] HospitalN-Terminal Qhh-Sqv6397-09-04 08:30:30* Test Item Value Reference Range Interpretation Comme nts NT-proBNP (test code = 93454-1) 3260 pg/mL <=125 H JACOB (test code = JACOB) Positive: Heart Failure Likely Lab Interpretation (test code = 18253-1) Abnormal [facility] HospitalMagnesium2024-09-04 08:22:32* Test Item Value Reference Range Interpretation Comme nts MAGNESIUM (test code = 0765510294) 1.7 mg/dL 1.7-2.4 Lab Interpretation (test cod e = 97156-8) Normal [facility] (NA, K, CL, CO2, GLUCOSE, BUN, CREATININE, CA)2024-04-06 08:22:27* Test Item Value Reference Range Interpretation Comme nts NA (test code = 2182725741) 139 mmol/L 135-145 K (test code = 3527031403) 3.4 mmol/L 3.5-5.0 L CL (test code = 0828249468) 99 mmol/L 98-108 CO2 TOTAL (test code = 5796271556) 31 mmol/L 23-31 AGAP (test code = 5128936232) 9 2-16 BUN (test code = 1262109739) 20 mg/dL 7-23 GLUCOSE (test code = 3937902322) 93 mg/dL 70-110 CREATININE (test code = 2160-0) 1.43 mg/dL 0.60-1.25 H CALCIUM (test code = 9432814573) 8.7 mg/dL 8.6-10.6 eGFR (test code = 74613-1) 57.2 mL/min/1.73m2 CKD-EPI eGFR (2020). Assuming creatinine has been stable day-to-day for at least three months, the eGFR indicates Category G3a (45 - 59 mL/min/1.73 m2) Lab Interpretation (test code = 88715-0) Abnormal [facility] with [id number] 08:06:05* Test Item Value Reference Range Interpretation [...] 31.7 g/dL 31.2-35.0 RDW-SD (test code = 01488-0) 51.8 fL 38.5-51.6 H RDW-CV (test code = 788-0) 17.1 % 12.1-15.4 H PLT (test code = 777-3) 190 150-328 MPV (test code = 21364-7) 10.7 fL 9.8-13.0 NRBC/100 WBC (test code = 1991247545) 0.6 0.0-10.0 NRBC x10^3 (test code = 8433525074) 0.03 See_Comment [Automated messa ge] The system which generated this result transmitted reference range: 10*3/?L. The reference range was not used to interpret this result as normal/abnormal. GRAN MAT (NEUT) % (test code = 770-8) 46.1 % IMM GRAN % (test code = 4513732688) 0.20 % LYMPH % (test code = 736-9) 38.9 % MONO % (test code = 5905-5) 12.7 % EOS % (test code = 713-8) 1.7 % BASO % (test code = 706-2) 0.4 % GRAN MAT x10^3(ANC) (test code = 3053700470) 2.13 10*3/uL 1.99-6.95 IMM GRAN x10^3 (test code = 6910432836) 0.00-0.06 LYMPH x10^3 (test code = 731-0) 1.80 10*3/uL 1.09-3.23 MONO x10^3 (test code = 742-7) 0.59 10*3/uL 0.36-1.02 EOS x10^3 (test code = 711-2) 0.08 10*3/uL 0.06-0.53 BASO x10^3 (test code = 704-7) 0.01-0.09 Lab Interpretation (test code = 85724-3) Abnormal [facility] GLUCOSE (AUTOMATED)2024-04-06 01:31:46* Test Item Value Reference Range Interpretation Comme nts POCT GLU (test code = 5279032194) 83 mg/dL 70-110 Lab Interpretation (test cod e = 65803-1) Normal [facility] GLUCOSE (AUTOMATED)2024-04-05 21:52:12* Test Item Value Reference Range Interpretation Comme nts POCT GLU (test code = 2893828301) 157 mg/dL 70-110 H Lab Interpretation (test cod e = 45355-2) Abnormal [facility] GLUCOSE (AUTOMATED)2024-04-05 17:16:47* Test Item Value Reference Range Interpretation Comme nts POCT GLU (test code = 1446692943) 134 mg/dL 70-110 H Lab Interpretation (test cod e = 03489-0) Abnormal [facility] GLUCOSE (AUTOMATED)2024-04-05 12:49:45* Test Item Value Reference Range Interpretation Comme nts POCT GLU (test code = 6081457996) 110 mg/dL 70-110 Lab Interpretation (test cod e = 20256-4) Normal [facility] GLUCOSE (AUTOMATED)2024-04-05 01:20:10* Test Item Value Reference Range Interpretation Comme nts POCT GLU (test code = 6765374791) 73 mg/dL 70-110 Lab Interpretation (test cod e = 66942-4) Normal [facility] GLUCOSE (AUTOMATED)2024-04-04 22:06:08* Test Item Value Reference Range Interpretation Comme nts POCT GLU (test code = 7062222469) 65 mg/dL 70-110 L Lab Interpretation (test cod e = 11656-8) [facility]normal [facility] 1 [id number] 18:01:13EXAM: XR CHEST 1 VW COMPARISON: Chest [...] and soft tissues: No osseous abnormality is visualized.[facility] Critical [id number] 16:50:00Michelle Miranda MD ? ? 04/05/2024 ?1:53 [...] of separately billable procedures and treating other patients.[facility] HospitalPHYSICIAN [id number] 18:56:16 Ordered by an unspecified provider.[facility] - [id number] 16:18:17Ordered by an unspecified provider.[facility] HospitalTransthoracic echo (TTE)2023-07-31 02:35:11* Test Item Value Reference Range Interpretation Comme nts Height (test code = 1497415933) 74 in Weight (test code = 6089024574) 300 lbs Systolic BP (test code = 4923880262) 107 mmHg Diastolic BP (test code = 2839039668) 80 mmHg Heart Rate (test code = 8501845771) 90 bpm BSA (test code = 1797784039) 2.6 m2 LVIDD (test code = 0368409970) 6.10 cm Left Ventricular End Diastolic Volume by Teichholz Method (test code = 8623133) 184.5 mL IVS (test code = 3113028907) 1.55 cm Interventricular Septum Diastolic Thickness by 2D (test code = 5774214) 1.55 cm LVPWD (test code = 7315606396) 1.62 cm PW (test code = 1686137493) 1.62 cm 0.6-1.1 EF(Teich) (test code = 5757306170) 19.30 % LVIDS (test code = 3050666980) 5.50 cm Left Ventricular End Systolic Volume by Teichholz Method (test code = 3463386) 148.8 mL FS (test code = 0450829738) 9 % EF - 2D (test code = 32051136) 19.30 % LVOT diameter (test code = 4192230222) 2.22 cm LVOT area (test code = 1727120521) 3.90 cm2 TR Peak Sommer (test code = 8340397664) 237.4 cm/s Triscuspid Valve Regurgitation Peak Gradient (test code = 8527320515) 22.5 mmHg ACS (test code = 8229542032) 2.20 cm Ao root diam (test code = 0576464469) 3.80 cm Aortic root (test code = 7748273370) 3.8 cm Ao root annulus (test code = 9420499813) 3.8 cm LA size (test code = 8397858106) 4.4 cm E wave decelartion time (test code = 8439309301) 0.14 s MV Prop V (test code = 1292080876) 30.80 cm/s Tapse (test code = 8587268333) 1.63 cm LVOT stroke volume (test code = 8912315372) 63.10 cm3 LVOT peak sommer (test code = 1682805950) 101.7 cm/s LVOT mn grad (test code = 1693134605) 1.8 mmHg AV LVOT peak gradient (test code = 8142026006) 4.1 mmHg LVOT peak VTI (test code = 7999273195) 16.4 cm LV V1 mean (test code = 4866761209) 62.00 cm/s Aortic valve mean velocity (test code = 7657639794) 51.8 cm/s Ao peak sommer (test code = 8044673697) 81.0 cm/s Ao VTI (test code = 3619756920) 13.5 cm AV area by cont VTI (test code = 9938180578) 4.7 cm2 AV area peak sommer (test code = 6373475438) 4.8 cm2 Ao max PG (test code = 6817579554) 2.60 mm[Hg] AV peak gradient (test code = 1977921772) 2.6 mmHg AV valve area (test code = 2505142907) 4.70 cm2 AV mean gradient (test code = 3701784510) 1.26 mmHg Radiology Study observation (narrative) (test code = 11600-4) JACOB (test code = JACOB) ?Left?Ventricle: Left [...] mL of Lumason ultrasound enhancing agent used. [facility]. METABOLIC PANEL (14683)2023-03-28 04:43:53* Test Item Value Reference Range Interpretation Comme nts NA (test code = 0365601941) 138 mmol/L 135-145 K (test code = 5928519934) 4.2 mmol/L 3.5-5.0 CL (test code = 2458447600) 102 mmol/L 98-108 CO2 TOTAL (test code = 5522802248) 28 mmol/L 23-31 AGAP (test code = 6639261358) 8 2-16 BUN (test code = 8342552082) 41 mg/dL 7-23 H GLUCOSE (test code = 7369588696) 118 mg/dL 70-110 H CREATININE (test code = 6048571849) 1.93 mg/dL 0.60-1.25 H TOTAL BILI (test code = 3154673774) 0.6 mg/dL 0.1-1.1 CALCIUM (test code = 0064622685) 9.2 mg/dL 8.6-10.6 T PROTEIN (test code = 0204754996) 8.1 g/dL 6.3-8.2 ALBUMIN (test code = 5960763674) 4.2 g/dL 3.5-5.0 ALK PHOS (test code = 5535875903) 73 U/L 34-122 ALTv (test code = 1742-6) 26 U/L 5-50 AST(SGOT) (test code = 0757777235) 29 U/L 13-40 eGFR (test code = 5024740567) 36.2 mL/min/1.73m2 JACOB (test code = JACOB) [...] imaging tests). Lab Interpretation (test code = 35175-4) Abnormal [facility] WITH [id number] 04:31:08* Test Item Value Reference Range Interpretation Comme nts WBC (test code = 6690-2) 6.19 See_Comment [Automated Cogbooks] The system which generated this result transmitted reference range: 4.20 - 10.70 10*3/?L. The reference range was not used to interpret this result as normal/abnormal. RBC (test code = 789-8) 5.44 See_Comment [Automated Cogbooks] The system which generated this result transmitted [...] 32.3 g/dL 31.2-35.0 RDW-SD (test code = 60507-2) 47.8 fL 38.5-51.6 RDW-CV (test code = 788-0) 16.4 % 12.1-15.4 H PLT (test code = 777-3) 198 See_Comment [Automated Cogbooks] The system which generated this result transmitted reference range: 150 - 328 10*3/?L. The reference range was not used to interpret this result as normal/abnormal. MPV (test code = 70098-9) 10.4 fL 9.8-13.0 NRBC/100 WBC (test code = 8418345336) 0.0 See_Comment [Automated me ssage] The system which generated this result transmitted reference range: 0.0 - 10.0 /100 WBCs. The reference range was not used to interpret this result as normal/abnormal. NRBC x10^3 (test code = 4158248178) See_Comment [Automated messa ge] The system which generated this result transmitted reference range: 10*3/?L. The reference range was not used to interpret this result as normal/abnormal. GRAN MAT (NEUT) % (test code = 770-8) 59.3 % IMM GRAN % (test code = 5616690203) 0.30 % LYMPH % (test code = 736-9) 27.8 % MONO % (test code = 5905-5) 10.5 % EOS % (test code = 713-8) 1.8 % BASO % (test code = 706-2) 0.3 % GRAN MAT x10^3(ANC) (test code = 6395506659) 3.67 10*3/uL 1.99-6.95 IMM GRAN x10^3 (test code = 2172474039) 0.00-0.06 LYMPH x10^3 (test code = 731-0) 1.72 10*3/uL 1.09-3.23 MONO x10^3 (test code = 742-7) 0.65 10*3/uL 0.36-1.02 EOS x10^3 (test code = 711-2) 0.11 10*3/uL 0.06-0.53 BASO x10^3 (test code = 704-7) 0.01-0.09 Lab Interpretation (test code = 75310-3) Abnormal [facility] GLUCOSE (AUTOMATED)2022-06-09 23:04:10* Test Item Value Reference Range Interpretation Comme nts POCT GLU (test code = 8886899434) 219 mg/dL 70-110 H Lab Interpretation (test cod e = 23015-7) Abnormal [facility] GLUCOSE (AUTOMATED)2022-06-09 18:07:54* Test Item Value Reference Range Interpretation Comme nts POCT GLU (test code = 7251794608) 123 mg/dL 70-110 H Lab Interpretation (test cod e = 71276-5) Abnormal [facility] GLUCOSE (AUTOMATED)2022-06-09 13:54:05* Test Item Value Reference Range Interpretation Comme nts POCT GLU (test code = 4895458234) 99 mg/dL 70-110 Lab Interpretation (test cod e = 09053-5) Normal [facility] GLUCOSE (AUTOMATED)2022-06-09 03:02:13* Test Item Value Reference Range Interpretation Comme nts POCT GLU (test code = 5435314772) 102 mg/dL 70-110 Lab Interpretation (test cod e = 31786-5) Normal [facility] GLUCOSE (AUTOMATED)2022-06-08 22:57:07* Test Item Value Reference Range Interpretation Comme nts POCT GLU (test code = 1567270984) 101 mg/dL 70-110 Lab Interpretation (test cod e = 78838-6) Normal [facility] GLUCOSE (AUTOMATED)2022-06-08 17:36:44* Test Item Value Reference Range Interpretation Comme nts POCT GLU (test code = 4280002543) 103 mg/dL 70-110 Lab Interpretation (test cod e = 38671-4) Normal [facility] GLUCOSE (AUTOMATED)2022-06-08 13:42:38* Test Item Value Reference Range Interpretation Comme nts POCT GLU (test code = 3548070025) 112 mg/dL 70-110 H Lab Interpretation (test cod e = 77414-9) Abnormal [facility] GLUCOSE (AUTOMATED)2022-06-08 01:27:29* Test Item Value Reference Range Interpretation Comme nts POCT GLU (test code = 4773649393) 117 mg/dL 70-110 H Lab Interpretation (test cod e = 68815-4) Abnormal [facility] GLUCOSE (AUTOMATED)2022-06-07 22:01:24* Test Item Value Reference Range Interpretation Comme nts POCT GLU (test code = 1233948154) 120 mg/dL 70-110 H Lab Interpretation (test cod e = 11736-2) Abnormal [facility] GLUCOSE (AUTOMATED)2022-06-07 16:41:29* Test Item Value Reference Range Interpretation Comme nts POCT GLU (test code = 0195317328) 115 mg/dL 70-110 H Lab Interpretation (test cod e = 48822-8) Abnormal [facility] GLUCOSE (AUTOMATED)2022-06-07 12:55:27* Test Item Value Reference Range Interpretation Comme nts POCT GLU (test code = 3778245667) 113 mg/dL 70-110 H Lab Interpretation (test cod e = 24323-0) Abnormal [facility] GLUCOSE (AUTOMATED)2022-06-06 21:33:33* Test Item Value Reference Range Interpretation Comme nts POCT GLU (test code = 0987244062) 108 mg/dL 70-110 Lab Interpretation (test cod e = 27518-8) Normal [facility] GLUCOSE (AUTOMATED)2022-06-06 17:00:26* Test Item Value Reference Range Interpretation Comme nts POCT GLU (test code = 2428091881) 129 mg/dL 70-110 H Lab Interpretation (test cod e = 80480-8) [facility]normal [facility] Hospital[facility]ORT[facility]OL [id number] 16:05:22* Test Item Value Reference Range Interpretation Comme nts JOCELINE AM (test code = 5619228932) 13.2 ug/dL 4.5-23.0 JACOB (test code = JACOB) Biotin has been reported to cause a positive bias, interpret results relative to patient's use of biotin. Lab Interpretation (test code = 53943-6) Normal [facility] GLUCOSE (AUTOMATED)2022-06-06 13:07:51* Test Item Value Reference Range Interpretation Comme nts POCT GLU (test code = 7017633175) 113 mg/dL 70-110 H Lab Interpretation (test cod e = 33279-2) Abnormal [facility] HospitalTHYROID STIMULATING [id number] 10:50:46 * Test Item Value Reference Range Interpretation Comme nts TSH (test code = 8616748486) See_Comment [Automated messa ge] The system which generated this result transmitted reference range: 0.45 - 4.70 mIU/L. The reference range was not used to interpret this result as normal/abnormal. Lab Interpretation (test code = 82686-7) Normal [facility] HospitalFREE [id number] 10:36:44* Test Item Value Reference Range Interpretation Comme nts FREE T4 (test code = 5435551023) See_Comment [Automated [employer]] The system which generated this result transmitted reference range: 0.78 - 2.20 ng/dL:. The reference range was not used to interpret this result as normal/abnormal. Lab Interpretation (test code = 20415-2) Normal [facility] Metabolic Panel (NA, K, CL, CO2, GLUCOSE, BUN, CREATININE, CA)2022-06-06 10:21:23* Test Item Value Reference Range Interpretation Comme nts NA (test code = 7370275284) 137 mmol/L 135-145 K (test code = 6358136287) 3.9 mmol/L 3.5-5.0 CL (test code = 9154974315) 93 mmol/L 98-108 L CO2 TOTAL (test code = 5216603126) 31 mmol/L 23-31 AGAP (test code = 6750805896) 2-16 BUN (test code = 1026375853) 51 mg/dL 7-23 H GLUCOSE (test code = 0132394305) 115 mg/dL 70-110 H CREATININE (test code = 3307164097) 2.18 mg/dL 0.60-1.25 H CALCIUM (test code = 2602202938) 10.0 mg/dL 8.6-10.6 eGFR (test code = 1460656648) mL/min/1.73m2 JACOB (test code = JACOB) Association [...] imaging tests). Lab Interpretation (test code = 91168-2) Abnormal [facility] HospitalGLYCOSYLATED HEMOGLOBIN (A1C)2022-06-06 09:42:08* Test Item Value Reference Range Interpretation Comme nts HGB A1C (test code = 4548-4) 6.5 % 4.0-5.7 H JACOB (test code = JACOB) Reference RangesNormal: <5.7%Prediabetes: 5.7 - 6.4%Diabetes: > 6.5% Lab Interpretation (test code = 01633-7) Abnormal [facility] HospitalCBC with [id number] 09:12:15* Test Item Value Reference Range Interpretation Comme nts WBC (test code = 6690-2) See_Comment [Automated [employer]] The system which generated this result transmitted reference range: 4.20 - 10.70 10*3/?L. The reference range was not used to interpret this result as normal/abnormal. RBC (test code = 789-8) See_Comment H [Automated [employer]] The system which generated this result transmitted [...] 32.6 g/dL 31.2-35.0 RDW-SD (test code = 99953-5) 42.9 fL 38.5-51.6 RDW-CV (test code = 788-0) 16.0 % 12.1-15.4 H PLT (test code = 777-3) See_Comment [Automated messa ge] The system which generated this result transmitted reference range: 150 - 328 10*3/?L. The reference range was not used to interpret this result as normal/abnormal. MPV (test code = 34516-8) 10.9 fL 9.8-13.0 NRBC/100 WBC (test code = 7007861679) See_Comment [Automated [facility] ssage] The system which generated this result transmitted reference range: 0.0 - 10.0 /100 WBCs. The reference range was not used to interpret this result as normal/abnormal. NRBC x10^3 (test code = 5387533295) See_Comment [Automated messa ge] The system which generated this result transmitted reference range: 10*3/?L. The reference range was not used to interpret this result as normal/abnormal. GRAN MAT (NEUT) % (test code = 770-8) 43.8 % IMM GRAN % (test code = 7670382642) 0.20 % LYMPH % (test code = 736-9) 40.2 % MONO % (test code = 5905-5) 14.4 % EOS % (test code = 713-8) 1.2 % BASO % (test code = 706-2) 0.2 % GRAN MAT x10^3(ANC) (test code = 1467469721) 2.26 10*3/uL 1.99-6.95 IMM GRAN x10^3 (test code = 2821404194) 0.00-0.06 LYMPH x10^3 (test code = 731-0) 2.07 10*3/uL 1.09-3.23 MONO x10^3 (test code = 742-7) 0.74 10*3/uL 0.36-1.02 EOS x10^3 (test code = 711-2) 0.06 10*3/uL 0.06-0.53 BASO x10^3 (test code = 704-7) 0.01-0.09 Lab Interpretation (test code = 21256-0) Abnormal [facility] [id number] 22:42:16* Test Item Value Reference Range Interpretation Comments TROPONIN I (test code = 6534904994) 0.048 ng/mL See_Comment H [Automated message] The [...] of biotin. Lab Interpretation (test code = 00679-1) Abnormal [facility]. METABOLIC PANEL (62434)2022-06-05 21:40:24* Test Item Value Reference Range Interpretation Comme nts NA (test code = 8735638160) 136 mmol/L 135-145 K (test code = 0676248069) 4.2 mmol/L 3.5-5.0 CL (test code = 4820663146) 93 mmol/L 98-108 L CO2 TOTAL (test code = 6042650771) 29 mmol/L 23-31 AGAP (test code = 0293896138) 2-16 BUN (test code = 5430623035) 45 mg/dL 7-23 H GLUCOSE (test code = 6602517671) 113 mg/dL 70-110 H CREATININE (test code = 7888389011) 2.31 mg/dL 0.60-1.25 H TOTAL BILI (test code = 3439970532) 1.7 mg/dL 0.1-1.1 H CALCIUM (test code = 9660030526) 9.9 mg/dL 8.6-10.6 T PROTEIN (test code = 4686499598) 8.8 g/dL 6.3-8.2 H ALBUMIN (test code = 3589642688) 4.8 g/dL 3.5-5.0 ALK PHOS (test code = 7055471092) 88 U/L 34-122 ALTv (test code = 1742-6) 21 U/L 5-50 AST(SGOT) (test code = 6332812689) 25 U/L 13-40 eGFR (test code = 1163413431) mL/min/1.73m2 JACOB (test code = JACOB) Association [...] imaging tests). Lab Interpretation (test code = 51130-6) Abnormal [facility] HospitalAMMONIA, [id number] 21:39:03* Test Item Value Reference Range Interpretation Comme [facility] AMMONIA (test code = 3259395176) 13 umol/L 9-33 Lab Interpretation (test cod e = 01471-9) Normal [facility] HospitalPROTHROMBIN TIME / [id number] 21:38:01* Test Item Value Reference Range Interpretation Comme nts PROTIME PATIENT (test code = 5964-2) See_Comment [Automated messa ge] The system which generated this result transmitted reference range: 12.0 - 14.7 Seconds. The reference range was not used to interpret this result as normal/abnormal. INR (test code = 6301-6) Normal INR <1.1; Warfarin Therapeutic range 2.0 to 3.0 or 2.5 to 3.5, depending upon the indications. Lab Interpretation (test code = 56521-1) Normal [facility] WITH [id number] 21:34:23* Test Item Value Reference Range Interpretation Comme nts WBC (test code = 6690-2) See_Comment [Automated [employer] ge] The system which generated this result transmitted reference range: 4.20 - 10.70 10*3/?L. The reference range was not used to interpret this result as normal/abnormal. RBC (test code = 789-8) See_Comment H [Automated [employer] ge] The system which generated this result [...] 32.4 g/dL 31.2-35.0 RDW-SD (test code = 04840-7) 43.6 fL 38.5-51.6 RDW-CV (test code = 788-0) 17.4 % 12.1-15.4 H PLT (test code = 777-3) See_Comment [Automated [employer] ge] The system which generated this result transmitted reference range: 150 - 328 10*3/?L. The reference range was not used to interpret this result as normal/abnormal. MPV (test code = 49739-8) 10.3 fL 9.8-13.0 NRBC/100 WBC (test code = 9381047360) See_Comment [Automated me ssage] The system which generated this result transmitted reference range: 0.0 - 10.0 /100 WBCs. The reference range was not used to interpret this result as normal/abnormal. NRBC x10^3 (test code = 9377295485) See_Comment [Automated messa ge] The system which generated this result transmitted reference range: 10*3/?L. The reference range was not used to interpret this result as normal/abnormal. GRAN MAT (NEUT) % (test code = 770-8) 46.9 % IMM GRAN % (test code = 9191640734) 0.20 % LYMPH % (test code = 736-9) 38.8 % MONO % (test code = 5905-5) 12.9 % EOS % (test code = 713-8) 0.9 % BASO % (test code = 706-2) 0.3 % GRAN MAT x10^3(ANC) (test code = 2805411342) 3.01 10*3/uL 1.99-6.95 IMM GRAN x10^3 (test code = 2883599177) 0.00-0.06 LYMPH x10^3 (test code = 731-0) 2.49 10*3/uL 1.09-3.23 MONO x10^3 (test code = 742-7) 0.83 10*3/uL 0.36-1.02 EOS x10^3 (test code = 711-2) 0.06 10*3/uL 0.06-0.53 BASO x10^3 (test code = 704-7) 0.01-0.09 Lab Interpretation (test code = 17334-7) Abnormal [facility] GLUCOSE (AUTOMATED)2022-06-03 13:23:16* Test Item Value Reference Range Interpretation Comme nts POCT GLU (test code = 7912444921) 113 mg/dL 70-110 H Lab Interpretation (test cod e = 81504-7) Abnormal [facility] GLUCOSE (AUTOMATED)2022-06-02 22:20:49* Test Item Value Reference Range Interpretation Comme nts POCT GLU (test code = 9270591863) 105 mg/dL 70-110 Lab Interpretation (test cod e = 22182-1) Normal [facility] GLUCOSE (AUTOMATED)2022-06-02 17:14:01* Test Item Value Reference Range Interpretation Comme nts POCT GLU (test code = 1249179539) 101 mg/dL 70-110 Lab Interpretation (test cod e = 58968-4) Normal [facility] GLUCOSE (AUTOMATED)2022-06-02 13:06:11* Test Item Value Reference Range Interpretation Comme nts POCT GLU (test code = 9937632800) 91 mg/dL 70-110 Lab Interpretation (test cod e = 25904-1) Normal [facility] GLUCOSE (AUTOMATED)2022-06-02 09:46:37* Test Item Value Reference Range Interpretation Comme nts POCT GLU (test code = 0669087618) 88 mg/dL 70-110 Lab Interpretation (test cod e = 01656-7) Normal [facility] GLUCOSE (AUTOMATED)2022-06-02 01:58:12* Test Item Value Reference Range Interpretation Comme nts POCT GLU (test code = 0016939308) 97 mg/dL 70-110 Lab Interpretation (test cod e = 28788-6) Normal [facility] GLUCOSE (AUTOMATED)2022-06-01 21:49:40* Test Item Value Reference Range Interpretation Comme nts POCT GLU (test code = 8647725245) 83 mg/dL 70-110 Lab Interpretation (test cod e = 52909-1) Normal [facility] GLUCOSE (AUTOMATED)2022-05-15 16:25:57* Test Item Value Reference Range Interpretation Comme nts POCT GLU (test code = 6981988168) 136 mg/dL 70-110 H Notified Provide r Lab Interpretation (test code = 81629-4) Abnormal [facility] GLUCOSE (AUTOMATED)2022-05-15 13:11:35* Test Item Value Reference Range Interpretation Comme nts POCT GLU (test code = 1027258275) 108 mg/dL 70-110 Notified Provide r Lab Interpretation (test code = 36696-6) Normal [facility] METABOLIC PANEL (NA, K, CL, CO2, GLUCOSE, BUN, CREATININE, CA)2022-05-15 10:31:36* Test Item Value Reference Range Interpretation Comme nts NA (test code = 2023133963) 138 mmol/L 135-145 K (test code = 6029921462) 4.0 mmol/L 3.5-5 CL (test code = 6689263628) 100 mmol/L 98-108 CO2 TOTAL (test code = 2757063080) 28 mmol/L 23-31 AGAP (test code = 2585131236) 2-16 BUN (test code = 7354986649) 43 mg/dL 7-23 H GLUCOSE (test code = 5447001267) 120 mg/dL 70-110 H CREATININE (test code = 1589452164) 1.52 mg/dL 0.6-1.25 H CALCIUM (test code = 1330207193) 8.6 mg/dL 8.6-10.6 eGFR (test code = 8013068215) mL/min/1.73m2 JACOB (test code = JACOB) Association [...] imaging tests). Lab Interpretation (test code = 69128-1) [facility]normal [facility] HospitalMAGNESIUM2022-10-13 10:31:36* Test Item Value Reference Range Interpretation Comme nts MAGNESIUM (test code = 4645622432) 2.4 mg/dL 1.7-2.4 Lab Interpretation (test cod e = 22578-3) Normal [facility] WITH [id number] 10:08:36* Test Item Value Reference Range Interpretation [...] 32.1 g/dL 31.2-35 RDW-SD (test code = 13156-2) 45.1 fL 38.5-51.6 RDW-CV (test code = 788-0) 15.9 % 12.1-15.4 H PLT (test code = 777-3) See_Comment [Automated messa ge] The system which generated this result transmitted reference range: 150 - 328 10*3/?L. The reference range was not used to interpret this result as normal/abnormal. MPV (test code = 95741-8) 10.6 fL 9.8-13 NRBC/100 WBC (test code = 2151223272) See_Comment [Automated [facility] ssage] The system which generated this result transmitted reference range: 0.0 - 10.0 /100 WBCs. The reference range was not used to interpret this result as normal/abnormal. NRBC x10^3 (test code = 9480039112) See_Comment [Automated [employer] ge] The system which generated this result transmitted reference range: 10*3/?L. The reference range was not used to interpret this result as normal/abnormal. GRAN MAT (NEUT) % (test code = 770-8) 65.9 % IMM GRAN % (test code = 6696114958) 0.30 % LYMPH % (test code = 736-9) 23.2 % MONO % (test code = 5905-5) 10.1 % EOS % (test code = 713-8) 0.3 % BASO % (test code = 706-2) 0.2 % GRAN MAT x10^3(ANC) (test code = 6362872766) 5.68 10*3/uL 1.99-6.95 IMM GRAN x10^3 (test code = 7828979382) 0.03 10*3/uL 0-0.06 LYMPH x10^3 (test code = 731-0) 2.00 10*3/uL 1.09-3.23 MONO x10^3 (test code = 742-7) 0.87 10*3/uL 0.36-1.02 EOS x10^3 (test code = 711-2) 0.03 10*3/uL 0.06-0.53 L BASO x10^3 (test code = 704-7) 0.01-0.09 Lab Interpretation (test code = 71297-7) Abnormal [facility] GLUCOSE (AUTOMATED)2022-05-15 01:35:43* Test Item Value Reference Range Interpretation Comme nts POCT GLU (test code = 2197691507) 121 mg/dL 70-110 H Lab Interpretation (test cod e = 37094-2) Abnormal [facility] GLUCOSE (AUTOMATED)2022-05-14 21:31:02* Test Item Value Reference Range Interpretation Comme nts POCT GLU (test code = 8406908831) 134 mg/dL 70-110 H Lab Interpretation (test cod e = 27287-8) Abnormal [facility] GLUCOSE (AUTOMATED)2022-05-14 13:18:03* Test Item Value Reference Range Interpretation Comme nts POCT GLU (test code = 5171197807) 134 mg/dL 70-110 H Lab Interpretation (test cod e = 12286-2) Abnormal [facility] GLUCOSE (AUTOMATED)2022-05-14 00:37:27* Test Item Value Reference Range Interpretation Comme nts POCT GLU (test code = 2203575670) 138 mg/dL 70-110 H Lab Interpretation (test cod e = 22277-4) Abnormal [facility] HospitalaPTT (for use with Heparin Drip)2022-05-13 21:44:37* Test Item Value Reference Range Interpretation Comme nts APTT Patient (test code = 3173-2) See_Comment H [Automated [employer] ge] The system which generated this result transmitted reference range: 26 - 36 Seconds. The reference range was not used to interpret this result as normal/abnormal. Lab Interpretation (test code = 05387-0) Abnormal [facility] GLUCOSE (AUTOMATED)2022-05-13 21:23:02* Test Item Value Reference Range Interpretation Comme nts POCT GLU (test code = 5668784061) 129 mg/dL 70-110 H Lab Interpretation (test cod e = 15728-7) Abnormal [facility] GLUCOSE (AUTOMATED)2022-05-13 20:36:50* Test Item Value Reference Range Interpretation Comme nts POCT GLU (test code = 2178471968) 107 mg/dL 70-110 Lab Interpretation (test cod e = 67457-5) Normal [facility] GLUCOSE (AUTOMATED)2022-05-13 20:35:27* Test Item Value Reference Range Interpretation Comme nts POCT GLU (test code = 7808430971) 145 mg/dL 70-110 H Lab Interpretation (test cod e = 27944-4) [facility]normal [facility] HospitalTransthoracic echo (TTE)2022-05-13 19:45:15* Test Item Value Reference Range Interpretation Comme nts LVIDD (test code = 9537142867) 6.10 cm Interventricular Septum Diastolic Thickness by 2D (test code = 5288230) 1.71 cm PW (test code = 7670305004) 1.64 cm 0.6-1.1 LVIDS (test code = 0765642586) 5.50 cm LA size (test code = 3811657804) 3.8 cm LVPWD (test code = 4677185031) 1.64 cm AV LVOT peak gradient (test code = 5525977556) mmHg E wave decelartion time (test code = 9265645900) 0.10 s LVOT diameter (test code = 7678927682) 2.5 cm LVOT peak VTI (test code = 2616241152) 10.5 cm LVOT stroke volume (test code = 5179700997) 52.60 cm3 Triscuspid Valve Regurgitation Peak Gradient (test code = 0100165370) mmHg MV Peak E Sommer (test code = 9453979468) 98.1 cm/s IVS (test code = 7844663014) 1.71 cm Aortic root (test code = 3342046567) 3.7 cm Tapse (test code = 1443271362) 1.52 cm EF - 2D (test code = 45467117) 21.20 % Left Ventricular End Diastolic Volume by Teichholz Method (test code = 5673211) 189.2 mL Left Ventricular End Systolic Volume by Teichholz Method (test code = 0987612) 149.1 mL Ao root annulus (test code = 7132951924) 3.7 cm FS (test code = 2203766213) 10 % LVOT mn grad (test code = 0650037625) mmHg TR Peak Sommer (test code = 8812358825) 283.7 cm/s MV E/e' septal (test code = 6737752542) 4.5 cm/s LVOT area (test code = 4573837902) 5.00 cm2 LVOT peak sommer (test code = 9828227875) 78.8 cm/s BSA (test code = 6882890110) 2.7 m2 Ao root diam (test code = 4242606963) 3.70 cm EF(Teich) (test code = 4442813448) 21.20 % LV V1 mean (test code = 8966515048) 52.50 cm/s MV Prop V (test code = 9351689331) 28.90 cm/s Height (test code = 8170462270) in Weight (test code = 4163970338) lbs Systolic BP (test code = 3154048941) mmHg Diastolic BP (test code = 5837041866) mmHg Heart Rate (test code = 4675185222) bpm LV Diastolic Volume (BP) (test code = 3292086623) 285.5 mL A2C EF (test code = 6819077697) 12.80 % EF(sp2-el) (test code = 8890105419) 12.90 % SV(MOD-sp2) (test code = 2642688081) 40.90 mL A4C EF (test code = 9344817834) 16.30 % EF(MOD-bp) (test code = 8449911304) 16.80 % EF(sp4-el) (test code = 7899566209) 20.60 % LV Systolic Volume (BP) (test code = 5370582398) 237.7 mL SV(MOD-bp) (test code = 7984623148) 47.90 mL SV(MOD-sp4) (test code = 7602251363) 39.70 mL SV(sp4-el) (test code = 4096840616) 55.90 mL EF (test code = 7874276200) Left Ventricular Stroke Volume by 2-D Biplane-MOD (test code = 6495070) 47.9 mL LV Diastolic Volume Index (BP) (test code = 5971549966) 105.7 mL/m2 LV Systolic Volume Index (BP) (test code = 7517424688) 88.0 mL/m2 Radiology Study observation (narrative) (test code = 79265-6) JACOB (test code = JACOB) ?Left?Ventricle: Left [...] sinus rhythm. [facility] HospitalACTIVATED PARTIAL THRMPLAS [id number] 15:40:52* Test Item Value Reference Range Interpretation Comme [facility] APTT Patient (test code = 3173-2) See_Comment H [Automated [employer]] The system which generated this result transmitted reference range: 26 - 36 Seconds. The reference range was not used to interpret this result as normal/abnormal. Lab Interpretation (test code = 83919-4) Abnormal [facility] HospitalPO[facility] GLUCOSE (AUTOMATED)2022-05-13 02:37:38* Test Item Value Reference Range Interpretation Comme [facility] POCT GLU (test code = 0632328065) 104 mg/dL 70-110 Lab Interpretation (test cod e = 57094-1) Normal [facility] [id number] 23:05:27* Test Item Value Reference Range Interpretation Comments TROPONIN I (test code = 1392235258) 1.060 ng/mL See_Comment H [Automated message] The [...] of biotin. Lab Interpretation (test code = 51718-1) Abnormal [facility] HospitalPOPR GLUCOSE (AUTOMATED)2022-05-12 20:15:15* Test Item Value Reference Range Interpretation Comme nts POCT GLU (test code = 0943513057) 105 mg/dL 70-110 Notified Provide r Lab Interpretation (test code = 79859-4) Normal [facility] [id number] 20:09:56* Test Item Value Reference Range Interpretation Comments TROPONIN I (test code = 8445447613) 1.100 ng/mL See_Comment H [Automated message] The [...] of biotin. Lab Interpretation (test code = 87056-1) Abnormal [facility] GLUCOSE (AUTOMATED)2022-05-12 17:17:06* Test Item Value Reference Range Interpretation Comme nts POCT GLU (test code = 7865748557) 111 mg/dL 70-110 H Notified Provide r Lab Interpretation (test code = 39929-2) Abnormal [facility] GLUCOSE (AUTOMATED)2022-05-12 13:08:44* Test Item Value Reference Range Interpretation Comme nts POCT GLU (test code = 1045672765) 97 mg/dL 70-110 Lab Interpretation (test cod e = 83513-5) Normal [facility] GLUCOSE (AUTOMATED)2022-05-12 01:01:49* Test Item Value Reference Range Interpretation Comme nts POCT GLU (test code = 1298072666) 92 mg/dL 70-110 Lab Interpretation (test cod e = 16333-9) Normal [facility] HospitalTROPONIN [id number] 22:46:37* Test Item Value Reference Range Interpretation Comments TROPONIN I (test code = 5561764236) 0.046 ng/mL See_Comment H [Automated message] The [...] of biotin. Lab Interpretation (test code = 46094-3) Abnormal [facility] GLUCOSE (AUTOMATED)2022-05-11 21:13:58* Test Item Value Reference Range Interpretation Comme nts POCT GLU (test code = 2639770745) 106 mg/dL 70-110 Notified Provide r Lab Interpretation (test code = 07299-1) Normal [facility]PO[facility]UCOSE (AUTOMATED)2022-05-11 18:00:21* Test Item Value Reference Range Interpretation Comme [facility] POCT GLU (test code = 5032016497) 102 mg/dL 70-110 Notified Provide r Lab Interpretation (test code = 83578-9) Normal [facility] HospitalTROP[facility]IN [id number] 17:18:39* Test Item Value Reference Range Interpretation Comments TROPONIN I (test code = 5253744578) 0.051 ng/mL See_Comment H [Automated message] The [...] of biotin. Lab Interpretation (test code = 83770-0) Abnormal [facility] HospitalProthrombin Time (PT) / TBR9430-21-04 17:09:02 * Test Item Value Reference Range Interpretation Comme [facility] PROTIME PATIENT (test code = 5964-2) See_Comment H [Automated Cogbooks] The system which generated this result transmitted reference range: 10.1 - 12.6 Seconds. The reference range was not used to interpret this result as normal/abnormal. INR (test code = 6301-6) Normal INR <1.1; Warfarin Therapeutic range 2.0 to 3.0 or 2.5 to 3.5, depending upon the indications. Lab Interpretation (test code = 85258-4) [facility]normal [facility] 17:09:02* Test Item Value Reference Range Interpretation Comme nts APTT Patient (test code = 3173-2) See_Comment [Automated messa ge] The system which generated this result transmitted reference range: 26 - 36 Seconds. The reference range was not used to interpret this result as normal/abnormal. Lab Interpretation (test code = 00945-4) Normal [facility] HospitalLacaic Acid Whole [id number] 17:00:23* Test Item Value Reference Range Interpretation Comme nts LACTIC ACID (test code = 6440219295) 1.15 mmol/L 0.5-2.2 Lab Interpretation (test cod e = 15948-2) Normal [facility]PO[facility] GLUCOSE (AUTOMATED)2022-05-11 14:55:35* Test Item Value Reference Range Interpretation Comme [facility] POCT GLU (test code = 4333651267) 99 mg/dL 70-110 Notified Provide r Lab Interpretation (test code = 43873-0) Normal [facility] HospitalTroponin [id number] 03:41:52* Test Item Value Reference Range Interpretation Comments TROPONIN I (test code = 6402039147) 0.054 ng/mL See_Comment H [Automated message] The [...] of biotin. Lab Interpretation (test code = 30013-8) Abnormal [facility] HospitalGlycosylated Hemoglobin (A1C)2022-05-06 01:58:11* Test Item Value Reference Range Interpretation Comme [facility] HGB A1C (test code = 4548-4) 6.5 % 4-5.7 H JACOB (test code = JACOB) Reference RangesNormal: <5.7%Prediabetes: 5.7 - 6.4%Diabetes: > 6.5% Lab Interpretation (test code = 96290-9) [facility]normal [facility] HospitalThyroid Stimulating Hormone (TSH)2022-05-06 01:48:20* Test Item Value Reference Range Interpretation Comme nts TSH (test code = 8489310833) See_Comment Biotin has been reported to cause a negative bias, interpret results relative to patient's use of biotin. [Automated message] The system which generated this result transmitted reference range: 0.45 - 4.70 mIU/L. The reference range was not used to interpret this result as normal/abnormal. Lab Interpretation (test code = 19553-8) Normal [facility] HospitalN-TERMINAL [id number] 20:51:47* Test Item Value Reference Range Interpretation Comme nts NT-proBNP (test code = 9954374032) 4320 pg/mL See_Comment H [Automated message] The system which generated this result transmitted reference range: <=125. The reference range was not used to interpret this result as normal/abnormal. JACOB (test code = JACOB) Biotin has been reported to cause a negative bias, interpret results relative to patient's use of biotin. Lab Interpretation (test code = 54560-0) [facility]normal [facility] HospitalTROPONIN [id number] 20:29:07* Test Item Value Reference Range Interpretation Comments TROPONIN I (test code = 2635309464) 0.058 ng/mL See_Comment H [Automated message] The [...] of biotin. Lab Interpretation (test code = 16793-4) [facility]normal [facility] HospitalMAGNESIUM2022-10-03 20:17:44* Test Item Value Reference Range Interpretation Comme nts MAGNESIUM (test code = 4964235746) 1.8 mg/dL 1.7-2.4 Lab Interpretation (test cod e = 75436-6) Normal [facility] HospitalCOMP. METABOLIC PANEL (48808)2022-05-05 20:17:24* Test Item Value Reference Range Interpretation Comme nts NA (test code = 8079323131) 142 mmol/L 135-145 K (test code = 3769989077) 4.1 mmol/L 3.5-5 CL (test code = 4605700081) 108 mmol/L 98-108 CO2 TOTAL (test code = 3566000550) 22 mmol/L 23-31 L AGAP (test code = 1008580600) 2-16 BUN (test code = 0008281350) 22 mg/dL 7-23 GLUCOSE (test code = 9290193714) 107 mg/dL 70-110 CREATININE (test code = 8787802189) 1.30 mg/dL 0.6-1.25 H TOTAL BILI (test code = 1359466322) 0.6 mg/dL 0.1-1.1 CALCIUM (test code = 6318794305) 9.3 mg/dL 8.6-10.6 T PROTEIN (test code = 6328488360) 7.3 g/dL 6.3-8.2 ALBUMIN (test code = 5995656858) 4.0 g/dL 3.5-5 ALK PHOS (test code = 3962862415) 74 U/L 34-122 ALTv (test code = 1742-6) 20 U/L 5-50 AST(SGOT) (test code = 3693576002) 28 U/L 13-40 eGFR (test code = 5823494403) mL/min/1.73m2 JACOB (test code = JACOB) Association [...] imaging tests). Lab Interpretation (test code = 04095-3) Abnormal [facility] WITH [id number] 20:17:03* Test Item Value Reference Range Interpretation Comme nts WBC (test code = 6690-2) See_Comment [[employer]] The system which generated this result transmitted reference range: 4.20 - 10.70 10*3/?L. The reference range was not used to interpret this result as normal/abnormal. RBC (test code = 789-8) See_Comment [[employer]] The system which generated this result transmitted [...] 31.9 g/dL 31.2-35 RDW-SD (test code = 92881-6) 44.8 fL 38.5-51.6 RDW-CV (test code = 788-0) 15.5 % 12.1-15.4 H PLT (test code = 777-3) See_Comment [Automated messa ge] The system which generated this result transmitted reference range: 150 - 328 10*3/?L. The reference range was not used to interpret this result as normal/abnormal. MPV (test code = 92074-8) 10.7 fL 9.8-13 NRBC/100 WBC (test code = 9852953899) See_Comment [Automated [facility] ssage] The system which generated this result transmitted reference range: 0.0 - 10.0 /100 WBCs. The reference range was not used to interpret this result as normal/abnormal. NRBC x10^3 (test code = 5385120825) See_Comment [Automated messa ge] The system which generated this result transmitted reference range: 10*3/?L. The reference range was not used to interpret this result as normal/abnormal. GRAN MAT (NEUT) % (test code = 770-8) 52.8 % IMM GRAN % (test code = 0326358171) 0.20 % LYMPH % (test code = 736-9) 33.6 % MONO % (test code = 5905-5) 11.4 % EOS % (test code = 713-8) 1.6 % BASO % (test code = 706-2) 0.4 % GRAN MAT x10^3(ANC) (test code = 9723346355) 2.95 10*3/uL 1.99-6.95 IMM GRAN x10^3 (test code = 0893344862) 0-0.06 LYMPH x10^3 (test code = 731-0) 1.88 10*3/uL 1.09-3.23 MONO x10^3 (test code = 742-7) 0.64 10*3/uL 0.36-1.02 EOS x10^3 (test code = 711-2) 0.09 10*3/uL 0.06-0.53 BASO x10^3 (test code = 704-7) 0.01-0.09 Lab Interpretation (test code = 87147-0) Abnormal [facility] HospitalN-TERMINAL [id number] 12:18:51* Test Item Value Reference Range Interpretation Comme nts NT-proBNP (test code = 1891534516) 1400 pg/mL See_Comment H [Automated message] The system which generated this result transmitted reference range: <=125. The reference range was not used to interpret this result as normal/abnormal. JACOB (test code = JACOB) Biotin has been reported to cause a negative bias, interpret results relative to patient's use of biotin. Lab Interpretation (test code = 81664-0) Abnormal [facility] HospitalMagnesium [id number] 12:13:54* Test Item Value Reference Range Interpretation Comme nts MAGNESIUM (test code = 2898030345) 1.9 mg/dL 1.7-2.4 Lab Interpretation (test cod e = 56527-7) Normal [facility] Metabolic Panel (NA, K, CL, CO2, GLUCOSE, BUN, CREATININE, CA)2022-04-30 12:13:34* Test Item Value Reference Range Interpretation Comme nts NA (test code = 9263376333) 138 mmol/L 135-145 K (test code = 0603381157) 4.2 mmol/L 3.5-5 CL (test code = 2877214798) 104 mmol/L 98-108 CO2 TOTAL (test code = 4699231316) 26 mmol/L 23-31 AGAP (test code = 0736784730) 2-16 BUN (test code = 4730398931) 19 mg/dL 7-23 GLUCOSE (test code = 1546424023) 113 mg/dL 70-110 H CREATININE (test code = 6480618877) 1.28 mg/dL 0.6-1.25 H CALCIUM (test code = 7095504934) 8.9 mg/dL 8.6-10.6 eGFR (test code = 5709367731) mL/min/1.73m2 JACOB (test code = JACOB) Association [...] imaging tests). Lab Interpretation (test code = 51257-8) Abnormal [facility] GLUCOSE (AUTOMATED)2022-04-30 01:21:02* Test Item Value Reference Range Interpretation Comme [facility] POCT GLU (test code = 9221976437) 129 mg/dL 70-110 H Lab Interpretation (test cod e = 49195-0) Abnormal [facility] GLUCOSE (AUTOMATED)2022-04-29 22:32:44* Test Item Value Reference Range Interpretation Comme [facility] POCT GLU (test code = 1074256993) 86 mg/dL 70-110 Lab Interpretation (test cod e = 74128-4) Normal [facility]. METABOLIC PANEL (40661)2022-04-29 17:43:38* Test Item Value Reference Range Interpretation Comme [facility] NA (test code = 6980257679) 137 mmol/L 135-145 K (test code = 7933705369) 3.9 mmol/L 3.5-5 CL (test code = 2207360883) 106 mmol/L 98-108 CO2 TOTAL (test code = 9158315268) 22 mmol/L 23-31 L AGAP (test code = 3576440625) 2-16 BUN (test code = 8510288948) 17 mg/dL 7-23 GLUCOSE (test code = 2632081124) 103 mg/dL 70-110 CREATININE (test code = 0028623913) 1.18 mg/dL 0.6-1.25 TOTAL BILI (test code = 6669828149) 0.8 mg/dL 0.1-1.1 CALCIUM (test code = 0094522232) 8.9 mg/dL 8.6-10.6 T PROTEIN (test code = 0688899491) 6.9 g/dL 6.3-8.2 ALBUMIN (test code = 4826400694) 3.8 g/dL 3.5-5 ALK PHOS (test code = 2696547224) 65 U/L 34-122 ALTv (test code = 1742-6) 18 U/L 5-50 AST(SGOT) (test code = 5407426839) 25 U/L 13-40 eGFR (test code = 0260080220) mL/min/1.73m2 JACOB (test code = JACOB) Association [...] imaging tests). Lab Interpretation (test code = 56448-2) [facility]normal [facility] HospitalTROPONIN [id number] 17:02:13* Test Item Value Reference Range Interpretation Comments TROPONIN I (test code = 2837075590) 0.045 ng/mL See_Comment H [Automated message] The [...] of biotin. Lab Interpretation (test code = 64978-0) Abnormal [facility] HospitalN-[facility]MINAL [id number] 17:00:29* Test Item Value Reference Range Interpretation Comme [facility] NT-proBNP (test code = 4687788769) 1770 pg/mL See_Comment H [Automated message] The system which generated this result transmitted reference range: <=125. The reference range was not used to interpret this result as normal/abnormal. JACOB (test code = JACOB) Biotin has been reported to cause a negative bias, interpret results relative to patient's use of biotin. Lab Interpretation (test code = 99549-7) Abnormal [facility] HospitalPROTHROMBIN TIME / [id number] 15:56:43* Test Item Value Reference Range Interpretation Comme nts PROTIME PATIENT (test code = 5964-2) See_Comment [Automated Cogbooks] The system which generated this result transmitted reference range: 12.0 - 14.7 Seconds. The reference range was not used to interpret this result as normal/abnormal. INR (test code = 6301-6) Normal INR <1.1; Warfarin Therapeutic range 2.0 to 3.0 or 2.5 to 3.5, depending upon the indications. Lab Interpretation (test code = 83181-3) Normal [facility] WITH [id number] 15:48:01* Test Item Value Reference Range Interpretation Comme nts WBC (test code = 6690-2) See_Comment [Automated [employer]] The system which generated this result [...] 31.2 g/dL 31.2-35 RDW-SD (test code = 18637-3) 45.0 fL 38.5-51.6 RDW-CV (test code = 788-0) 15.5 % 12.1-15.4 H PLT (test code = 777-3) See_Comment [Automated messa ge] The system which generated this result transmitted reference range: 150 - 328 10*3/?L. The reference range was not used to interpret this result as normal/abnormal. MPV (test code = 24040-1) 11.6 fL 9.8-13 NRBC/100 WBC (test code = 0411440622) See_Comment [Automated [facility] ssage] The system which generated this result transmitted reference range: 0.0 - 10.0 /100 WBCs. The reference range was not used to interpret this result as normal/abnormal. NRBC x10^3 (test code = 7974388418) See_Comment [Automated messa ge] The system which generated this result transmitted reference range: 10*3/?L. The reference range was not used to interpret this result as normal/abnormal. GRAN MAT (NEUT) % (test code = 770-8) 40.0 % IMM GRAN % (test code = 1630347233) 0.20 % LYMPH % (test code = 736-9) 47.3 % MONO % (test code = 5905-5) 10.4 % EOS % (test code = 713-8) 1.8 % BASO % (test code = 706-2) 0.3 % GRAN MAT x10^3(ANC) (test code = 8430814537) 2.39 10*3/uL 1.99-6.95 IMM GRAN x10^3 (test code = 5482115507) 0-0.06 LYMPH x10^3 (test code = 731-0) 2.83 10*3/uL 1.09-3.23 MONO x10^3 (test code = 742-7) 0.62 10*3/uL 0.36-1.02 EOS x10^3 (test code = 711-2) 0.11 10*3/uL 0.06-0.53 BASO x10^3 (test code = 704-7) 0.01-0.09 Lab Interpretation (test code = 94788-3) Abnormal [facility] [id number] 12:23:05* Test Item Value Reference Range Interpretation Comments TROPONIN I (test code = 4109238696) 0.037 ng/mL See_Comment H [Automated message] The [...] of biotin. Lab Interpretation (test code = 87132-4) Abnormal [facility] METABOLIC PANEL (NA, K, CL, CO2, GLUCOSE, BUN, CREATININE, CA)2022-04-23 11:13:03* Test Item Value Reference Range Interpretation Comme nts NA (test code = 3093444350) 140 mmol/L 135-145 K (test code = 1803712221) 3.9 mmol/L 3.5-5 CL (test code = 6845312480) 105 mmol/L 98-108 CO2 TOTAL (test code = 5123556694) 28 mmol/L 23-31 AGAP (test code = 6014555121) 2-16 BUN (test code = 7060933927) 23 mg/dL 7-23 GLUCOSE (test code = 6279807312) 106 mg/dL 70-110 CREATININE (test code = 8069543911) 1.37 mg/dL 0.6-1.25 H CALCIUM (test code = 0302206758) 8.8 mg/dL 8.6-10.6 eGFR (test code = 2800565245) mL/min/1.73m2 JACOB (test code = JACOB) Association [...] imaging tests). Lab Interpretation (test code = 54007-7) [facility]normal [facility] HospitalMAGNESIUM2022-09-21 10:33:54* Test Item Value Reference Range Interpretation Comme nts MAGNESIUM (test code = 3562615497) 1.6 mg/dL 1.7-2.4 L Lab Interpretation (test cod e = 54328-9) Abnormal [facility] HospitalCB WITH [id number] 09:54:13* Test Item Value Reference Range Interpretation Comme nts WBC (test code = 6690-2) See_Comment [Automated [employer]ogbooks] The system which generated this result transmitted reference range: 4.20 - 10.70 10*3/?L. The reference range was not used to interpret this result as normal/abnormal. RBC (test code = 789-8) See_Comment [Automated [employer]ogbooks] The system which generated this result transmitted [...] 31.4 g/dL 31.2-35 RDW-SD (test code = 62178-8) 45.6 fL 38.5-51.6 RDW-CV (test code = 788-0) 15.8 % 12.1-15.4 H PLT (test code = 777-3) See_Comment [Automated messa ge] The system which generated this result transmitted reference range: 150 - 328 10*3/?L. The reference range was not used to interpret this result as normal/abnormal. MPV (test code = 31341-2) 11.5 fL 9.8-13 NRBC/100 WBC (test code = 5363337925) See_Comment [Automated [facility] ssage] The system which generated this result transmitted reference range: 0.0 - 10.0 /100 WBCs. The reference range was not used to interpret this result as normal/abnormal. NRBC x10^3 (test code = 8465060867) See_Comment [Automated messa ge] The system which generated this result transmitted reference range: 10*3/?L. The reference range was not used to interpret this result as normal/abnormal. GRAN MAT (NEUT) % (test code = 770-8) 44.0 % IMM GRAN % (test code = 2628850271) 0.20 % LYMPH % (test code = 736-9) 42.1 % MONO % (test code = 5905-5) 11.1 % EOS % (test code = 713-8) 2.2 % BASO % (test code = 706-2) 0.4 % GRAN MAT x10^3(ANC) (test code = 4917741600) 2.18 10*3/uL 1.99-6.95 IMM GRAN x10^3 (test code = 9638806483) 0-0.06 LYMPH x10^3 (test code = 731-0) 2.09 10*3/uL 1.09-3.23 MONO x10^3 (test code = 742-7) 0.55 10*3/uL 0.36-1.02 EOS x10^3 (test code = 711-2) 0.11 10*3/uL 0.06-0.53 BASO x10^3 (test code = 704-7) 0.01-0.09 Lab Interpretation (test code = 20488-5) Abnormal [facility] [id number] 19:59:21* Test Item Value Reference Range Interpretation Comments TROPONIN I (test code = 9289357878) 0.027 ng/mL See_Comment [Automated message] The system [...] of biotin. Lab Interpretation (test code = 92751-0) Normal [facility] HospitalN-TERMINAL [id number] 19:56:01* Test Item Value Reference Range Interpretation Comme nts NT-proBNP (test code = 8244621723) 887 pg/mL See_Comment H [Automated message] The system which generated this result transmitted reference range: <=125. The reference range was not used to interpret this result as normal/abnormal. JACOB (test code = JACOB) Biotin has been reported to cause a negative bias, interpret results relative to patient's use of biotin. Lab Interpretation (test code = 70404-3) Abnormal [facility] HospitalBASI METABOLIC PANEL (NA, K, CL, CO2, GLUCOSE, BUN, CREATININE, CA)2022-04-15 19:46:59* Test Item Value Reference Range Interpretation Comme nts NA (test code = 0653434304) 139 mmol/L 135-145 K (test code = 1580104393) 4.3 mmol/L 3.5-5 CL (test code = 9741008077) 102 mmol/L 98-108 CO2 TOTAL (test code = 7467784506) 26 mmol/L 23-31 AGAP (test code = 9392554380) 2-16 BUN (test code = 5998706517) 26 mg/dL 7-23 H GLUCOSE (test code = 9235972469) 126 mg/dL 70-110 H CREATININE (test code = 9408259239) 1.60 mg/dL 0.6-1.25 H CALCIUM (test code = 5976238486) 9.4 mg/dL 8.6-10.6 eGFR (test code = 7020807422) mL/min/1.73m2 JACOB (test code = JACOB) Association [...] imaging tests). Lab Interpretation (test code = 53136-1) Abnormal [facility] WITH [id number] 19:21:29* Test Item Value Reference Range Interpretation Comme nts WBC (test code = 6690-2) See_Comment [Automated [employer]books] The system which generated this result transmitted reference range: 4.20 - 10.70 10*3/?L. The reference range was not used to interpret this result as normal/abnormal. RBC (test code = 789-8) See_Comment H [Automated C[employer]books] The system which generated this result transmitted [...] 31.5 g/dL 31.2-35 RDW-SD (test code = 36391-4) 45.1 fL 38.5-51.6 RDW-CV (test code = 788-0) 15.9 % 12.1-15.4 H PLT (test code = 777-3) See_Comment [Automated messa ge] The system which generated this result transmitted reference range: 150 - 328 10*3/?L. The reference range was not used to interpret this result as normal/abnormal. MPV (test code = 89850-7) 10.8 fL 9.8-13 NRBC/100 WBC (test code = 5711944318) See_Comment [Automated [facility] ssage] The system which generated this result transmitted reference range: 0.0 - 10.0 /100 WBCs. The reference range was not used to interpret this result as normal/abnormal. NRBC x10^3 (test code = 9995659364) See_Comment [Automated messa ge] The system which generated this result transmitted reference range: 10*3/?L. The reference range was not used to interpret this result as normal/abnormal. GRAN MAT (NEUT) % (test code = 770-8) 50.4 % IMM GRAN % (test code = 7097324644) 0.30 % LYMPH % (test code = 736-9) 37.0 % MONO % (test code = 5905-5) 10.1 % EOS % (test code = 713-8) 1.9 % BASO % (test code = 706-2) 0.3 % GRAN MAT x10^3(ANC) (test code = 1474630890) 2.98 10*3/uL 1.99-6.95 IMM GRAN x10^3 (test code = 5130005104) 0-0.06 LYMPH x10^3 (test code = 731-0) 2.19 10*3/uL 1.09-3.23 MONO x10^3 (test code = 742-7) 0.60 10*3/uL 0.36-1.02 EOS x10^3 (test code = 711-2) 0.11 10*3/uL 0.06-0.53 BASO x10^3 (test code = 704-7) 0.01-0.09 Lab Interpretation (test code = 58981-3) [facility]normal [facility] HospitalGLU[facility]SE BED[facility]IDE [id number] 11:27:00* Test Item Value Reference Range Interpretation Comme nts GLUCOSE BEDSIDE TESTING (cathy t code = GLUBED) 109 mg/dL 70-110 N BASIC METABOLIC [id number] 08:09:00* Test Item Value Reference Range Interpretation [...] CA) 9.5 MG/DL 8.5-10.1 N GLUCOSE BEDSIDE [id number] 07:15:00* Test Item Value Reference Range Interpretation Comme nts GLUCOSE BEDSIDE TESTING (cathy t code = GLUBED) 102 mg/dL 70-110 N GLUCOSE BEDSIDE [id number] 23:04:00* Test Item Value Reference Range Interpretation Comme nts GLUCOSE BEDSIDE TESTING (cathy t code = GLUBED) 127 mg/dL 70-110 H GLUCOSE BEDSIDE [id number] 20:03:00* Test Item Value Reference Range Interpretation Comme nts GLUCOSE BEDSIDE TESTING (cathy t code = GLUBED) 149 mg/dL 70-110 H GLUCOSE BEDSIDE [id number] 16:55:00* Test Item Value Reference Range Interpretation Comme nts GLUCOSE BEDSIDE TESTING (cathy t code = GLUBED) 110 mg/dL 70-110 N GLUCOSE BEDSIDE [id number] 11:23:00* Test Item Value Reference Range Interpretation Comme nts GLUCOSE BEDSIDE TESTING (cathy t code = GLUBED) 173 mg/dL 70-110 H GLUCOSE BEDSIDE [id number] 08:33:00* Test Item Value Reference Range Interpretation Comme nts GLUCOSE BEDSIDE TESTING (cathy t code = GLUBED) 107 mg/dL 70-110 N DRUGS OF ABUSE SCREEN [id number] 06:11:00* Test Item Value Reference Range Interpretation [...] used to interpret this result as normal/abnormal. [id number] 20:43:00* Test Item Value Reference Range Interpretation [...] Completed by Nursing: NO- CTA CHEST FOR [id number] 18:35:00 [facility] 1965 Sex: M Name: BRYAN PARADA : 1965 Age/S: 55 / M [address] [place] Unit #: [id number] Loc: [place] [address] Phys: Isac Rouse DO Acct: [id number] Dis Date: Status: REG ER PHONE#: [phone] Exam Date: 02/27/2021 1800 FAX #: Reason: chest pain, elevated ddimer EXAMS: CPT: [id number] [place] [address] Location of dictation: B2 CTA of the chest with contrast, PE protocol CLINICAL INDICATION: Chest pain and elevated d-dimer. Comments: Volumetric data acquisition through the chest with intravenous contrast reconstructed as contiguous axial volume, and multiplanar coronal and sagittal reconstructions per department protocol. Patient's GFR is greater than 60. Contrast- 100 mL Isovue-370 2.5 mm axial sections. [...] 1. No evidence for pulmonary embolism, aneurysm ordissection. 2. Cardiomegaly with left ventricular configuration. Pacemaker in place with no cardiacdecompensation. 3. Otherwise no acute findings in the chest. PAGE 1 Signed Report (CONTINUED) Name:BRYAN PARADA : 1965 Age/S: 55 / M [address] [place] Unit #: [id number] Loc: [place] [address] Phys: Isac Rouse DO Acct: [id number] Dis Date: Status: REG ER PHONE #: [phone] Exam Date: 02/27/2021 1800 FAX #: Reason: chest pain, elevated ddimer EXAMS: CPT: [id number] [place] [address] (Continued) at 1835 Reported and signed by: April Marsh M.D. CC: Isac Rouse DO Technologist:Caitlin Slaughter, RT(R)(CT)(MRI) CTDI: DLP: Trnscb Date/Time: 02/27/2021 (1835) t.SDR.PXC Orig Print D/T: S: 02/27/2021 (1838) PAGE 2 Signed ReportCOVID 19 INHOUSE AG 2021-02-27 14:54:00* Test Item Value Reference Range Interpretation Comme nts COVID 19 INHOUSE AG (test code = [id number]) NEGATIVE Negative Per quencher operator , negative results should be treated aspresumptive [...] of clinicalsigns and symptoms consistent with COVID-19. [id number] 13:38:00* Test Item Value Reference Range Interpretation Comme nts D-DIMER (test code = DDIMER) 939 ng/mLFEU 215-500 HH THROMBOSIS AND/O R PULMONARY EMBOLISM AND THE CLINICAL CUT-OFF VALUE FOR EXCLUSION (500 ng/mL FEU) OF THESE CONDITIONSIS VALIDATED BY THE PLATEN GRINDER OF THE METHOD. A NEGATIVE D-DIMER RESULT WHEN COMBINED WITH A CLINICALASSESSMENT OF LOW PRETEST PROBABILITY HAS BEEN SHOWN TO HAVEA HIGH NEGATIVE PREDICTIVE VALUE OF DVT OR PE. D-DIMER VALUES >500 ng/mL FEU ARE NOT DIAGNOSTIC FOR DVT, PEor DIC WITHOUT OTHER CONFIRMATORY TESTS AND APPROPRIATECLINICAL EUALUATIONS. - XR CHEST 1 [id number] 13:35:00 [facility] 1965 Sex: M Name: BRYAN PARADA [place] : 1965 Age/S: 55 / M [address] [place] Unit #: [id number] Loc: [place] [address] Phys: Isac Rouse DO Acct: [id number] Dis Date: Status: REG ER PHONE #: [phone] Exam Date: 02/27/2021 1320 FAX #: Reason: chest pain EXAMS: CPT: [id number] XR CHEST1 V 90872 Fluoro Time: DAP (Gy m2): Air Kerma [...] findings. at 1335 Reported and signed by: Gala Brand CC: Isca Rouse DO PAGE 1 Signed Report Name: BRYAN PARADA [place] : 1965 Age/S: 55 / M [address] [address] Unit #: [id number] Loc: [place] [address] Phys: Isac Rouse DO Acct: [id number] Dis Date: Status: REG ER PHONE #: [phone] Exam Date: 02/27/2021 1320 FAX #: Reason: chest pain EXAMS: CPT: [id number] XR CHEST 1 V 28923 Fluoro Time: DAP (Gy m2): Air Kerma (mGy): (Continued) Technologist: RT Christiane(R)(CT) Trnscb Date/Time: 02/27/2021 (4098) VikramPXC Orig Print D/T: S: 02/27/2021 (8898) PAGE 2 Signed ReportBASIC METABOLIC [id number] 13:29:00* Test Item Value Reference Range Interpretation [...] H Completed by Nursing: NONT PRO-BRAIN NATRIURETIC [id number] 13:29:00* Test Item Value Reference Range Interpretation Comme nts NT PRO-BRAIN NATRIURETIC PEP TI (test code = PROBNP) 1727 PG/ML 0-100 H Completed by Nursing: [id number] 13:29:00* Test Item Value Reference Range Interpretation [...] varyby method. Completed by Nursing: NOCBC W/O [id number] 13:18:00* Test Item Value Reference Range Interpretation [...] ode = MPV) 11.20 fL 7.0-9.6 H [id number] 16:47:00* Test Item Value Reference Range Interpretation Comme nts GLUBED (test code = GLUBED) 116 MG/DL 70-110 H Performed by cer tified tub wash operator at [facility] [id number] 11:32:00* Test Item Value Reference Range Interpretation Comme nts GLUBED (test code = GLUBED) 110 MG/DL 70-110 N Performed by cer tified tub wash operator at [facility] [id number] 08:13:00* Test Item Value Reference Range Interpretation Comme nts GLUBED (test code = GLUBED) 101 MG/DL 70-110 N Performed by cer tified tub wash operator at [facility] HGBA1C%2021-02-06 07:50:00* Test Item Value Reference Range Interpretation Comme nts HGBA1C% (test code = HGBA1C%) 5.9 %A1C 4.8-6.0 N BASIC METABOLIC [id number] 07:33:00* Test Item Value Reference Range Interpretation [...] 9.0 mg/dL 8.0-10.5 N TSH REFLEX TO [id number] 07:33:00* Test Item Value Reference Range Interpretation Comme nts TSH REFLEX TO FT4 (test code = TSHREFLEX) 0.50 IU/mL 0.42-5.47 N BASIC METABOLIC [id number] 07:28:00* Test Item Value Reference Range Interpretation [...] 9.0 mg/dL 8.0-10.5 N TSH REFLEX TO [id number] 07:28:00* Test Item Value Reference Range Interpretation Comme nts TSH REFLEX TO FT4 (test code = TSHREFLEX) IU/mL 0.42-5.47 CBC W/AUTO [id number] 07:23:00* Test Item Value Reference Range Interpretation [...] REQUIRED (test c ode = MDIFF) NO [id number] 20:49:00* Test Item Value Reference Range Interpretation Comme nts GLUBED (test code = GLUBED) 129 MG/DL 70-110 H Performed by cer tified tub wash operator at [facility] COMPREHENSIVE METABOLIC [id number] 04:33:00* Test Item Value Reference Range Interpretation [...] = LDL) 160.1 mg/dL 0-100 H <100 RKMKJAQ51 0-129 NEAR OPTIMAL/ABOVE [id number] ZTCUAATDJR671-513 HIGH>SF=305 VERY HIGH*Guidelines provided by the National Cholesterol EducationProgram Adult Treatment Panel III CBC W/AUTO [id number] 04:22:00* Test Item Value Reference Range Interpretation [...] c ode = MDIFF) NO CBC W/AUTO [id number] 04:21:00* Test Item Value Reference Range Interpretation [...] DIFF REQUIRED (test c ode = MDIFF) [id number] 00:46:00* Test Item Value Reference Range Interpretation Comme nts TROPONIN-I (test code = TROPI) 0.090 ng/mL 0.000-0.045 H Negative: <= 0.0 45 Positive: >= 0.046 Correlation with serial results, other cardiac markers andclinical findings is necessary to determine the clinicalsignificance of this result. Results using different methodologies should not be comparedto one another as quantitative results may vary by method. LIPOPROTEIN [id number] 22:00:00* Test Item Value Reference Range Interpretation Comme nts LIPOPROTEIN LDL (test code = LDL) 166.8 mg/dL 0-100 H <100 DZYUFSR59 0-129 NEAR OPTIMAL/ABOVE [id number] GSAWKQQJNM835-755 HIGH>PV=384 VERY HIGH*Guidelines provided by the National Cholesterol EducationProgram Adult Treatment Panel III [id number] 21:44:00* Test Item Value Reference Range Interpretation Comme nts TROPONIN-I (test code = TROPI) 0.098 ng/mL 0.000-0.045 H Negative: <= 0.0 45 Positive: >= 0.046 Correlation with serial results, other cardiac markers andclinical findings is necessary to determine the clinicalsignificance of this result. Results using different methodologies should not be comparedto one another as quantitative results may vary by method. [id number] 21:34:00* Test Item Value Reference Range Interpretation Comme nts GLUBED (test code = GLUBED) 94 MG/DL 70-110 N Performed by cer tified tub wash operator at [facility] UA RFLX MICR CULT IF [id number] 18:05:00* Test Item Value Reference Range Interpretation [...] Indication for culture: Dysuria/FrequencyDRUGS OF ABUSE SCREEN [id number] 18:05:00* Test Item Value Reference Range Interpretation [...] Indication for culture: Dysuria/FrequencyDRUGS OF ABUSE SCREEN [id number] 17:28:00* Test Item Value Reference Range Interpretation [...] (test code = METHAURN) SCcutoff See_Comment [Automated [employer]] The system which generated this result [...] Indication for culture: Dysuria/FrequencyDRUGS OF ABUSE SCREEN [id number] 17:23:00* Test Item Value Reference Range Interpretation Comme nts URN COCAINE (test code = COCAURN) SCcutoff See_Comment [Automated [employer]] The system which generated this result transmitted reference range: <300 NG/ML. The reference range was not used to interpret this result as normal/abnormal. URN CANNABINOIDS (test code = CANNABURN) SCcutoff See_Comment [Automated [employer]] The system which generated this result transmitted [...] Indication for culture: Dysuria/Frequency- CTA CHEST FOR [id number] 16:11:00 [facility] 1965 Sex: M Name: BRYAN PARADA [facility] : 1965 Age/S: 55 / M [address] Unit #: [id number] Loc: [place] [address] Phys: Isac Rouse DO Acct: [id number] Dis Date: Status: REG ER PHONE#: [phone] Exam Date: 02/04/2021 1540 FAX #: Reason: chest pain EXAMS: CPT: [id number] [place] [address] EXAM: - CTA CHEST FOR PE LOCATION: [...] [place] : 1965 Age/S: 55 / M [address] #: [id number] Loc: [place] [address] Phys: Isac Rouse DO Acct: [id number] Dis Date: Status: REG ER PHONE #: [phone] Exam Date: 02/04/2021 1540 FAX #: Reason: chest pain EXAMS: CPT: [id number] [place] [address] (Continued) BONES: No acute osseous findings. Mild thoracic texture scoliosis. IMPRESSION: 1. No pulmonary embolism. No acute findings throughout the lungs. 2. Borderline dilated heart chambers. at 1611 Reported and signed by: Luis Rogers D.O. CC: Isac Rouse DO; Afua DARNELL Technologist:RT Stephanie(R) CTDI: DLP: Trnscb Date/Time: 02/04/2021 (1611) t.SYEDR.JW22 Orig Print D/T: S: 02/04/2021 (4525) PAGE 2 Signed Report [id number] 14:30:00* Test Item Value Reference Range Interpretation Comme nts D-DIMER (test code = DDIMER) 979 ng/mLFEU 215-500 HH BASIC METABOLIC [id number] 14:03:00* Test Item Value Reference Range Interpretation [...] 776 Unit/L 26-192 H Completed by Nursing: IODXRLIAYQ-G5581-21-05 14:03:00* Test Item Value Reference Range Interpretation [...] method. Completed by Nursing: NOCOVID 19 INHOUSE [id number] 13:50:00* Test Item Value Reference Range Interpretation Comme nts COVID 19 INHOUSE AG (test code = [id number]) NEGATIVE Negative Per quencher operator , negative results should be treated aspresumptive [...] consistent with COVID-19. - XR CHEST 1 [id number] 13:44:00 [facility] 1965 Sex: M Name: BRYAN PARADA [facility] : 1965 Age/S: 55 / M [address] #: [id number] Loc: [place] [address] Phys: NasimIsac Acct: [id number] Dis Date: Status: PRE ER PHONE #: [phone] Exam Date: 02/04/2021 1326 FAX #: Reason: chest pain EXAMS: CPT: [id number] XR CHEST1 V 96711 Fluoro Time: DAP (Gy m2): Air Kerma [...] and central venous congestion, without acute decompensation. at 1344 Reported and signed by: Geoff Scott M.D. CC: Isac Rouse DO; Afua DARNELL PAGE 1 Signed Report Name: BRYAN PARADA : 1965 Age/S: 55 / M [address] [address] Unit #: [id number] Loc: [place] [address] Phys: Isac Rouse DO Acct: [id number] Dis Date: Status: PRE ER PHONE #: [phone] Exam Date: 02/04/2021 1326 FAX #: Reason: chest pain EXAMS: CPT:[id number] XR CHEST 1 V 14399 Fluoro Time: DAP (Gy m2): Air Kerma (mGy): (Continued) Technologist: William Ruggiero RT(R) Trnscb Date/Time: 02/04/2021 (5914) Zoran.RK5 Orig Print D/T: S: 02/04/2021 (6043) PAGE 2 Signed ReportC W/O [id number] 13:36:00* Test Item Value Reference Range Interpretation [...] MPV) 10.90 fL 7.0-9.6 H BASIC METABOLIC [id number] 12:58:00* Test Item Value Reference Range Interpretation [...] CA) 9.0 MG/DL 8.5-10.1 N CBC W/AUTO [id number] 12:51:00* Test Item Value Reference Range Interpretation [...] = LDL) 119 MG/DL 0-129 N <100 EJXFNOP88 0 - 129 NEAR OPTIMAL/ABOVE QUMLDOR341 - 159 ZIQGBHRXVL875 - 189 HIGH>OR= 190 VERY HIGHNOTE THAT GUIDELINES ARE PROVIDED BY NATIONAL CHOLESTEROLEDUCATION PROGRAM ADULT TREATMENT PANEL III LDL/HDL (test code = LDL/HDL) 3.05 Ratio See_Comment N [Automated messa ge] The system which generated this result transmitted reference range: 1.48-3.22 Avg. The reference range was not used to interpret this result as normal/abnormal. GLYCOSYLATED HEMOGLOBIN [id number] 12:24:00* Test Item Value Reference Range Interpretation Comme nts GLYCOSYLATED HEMOGLOBIN (HA1 C) (test code = GLYHGB) 5.8 % A1C 0.0-5.7 H ESTIMATED AVERAGE GLUCOSE (t est code = EAG) 120 MG/DLest GLUCOSE BEDSIDE [id number] 12:05:00* Test Item Value Reference Range Interpretation Comme [facility] GLUCOSE BEDSIDE TESTING (cathy t code = GLUBED) 151 mg/dL 70-110 H - XR CHEST 1 [id number] 11:05:00 [facility] 1965 Sex: M Name: BRYAN PARADA [facility] : 1965 Age/S: 55 / M [address] [address] #: [id number] Loc: [place] [address] Phys: KarthikeyanRosinaimmanuel GONZALEZ Acct: [id number] Dis Date: Status: ADM IN PHONE #: [phone] Exam Date: 01/07/2021 1050 FAX #: Reason: Cough EXAMS: CPT: [id number] XR CHEST 1 V 52912 Fluoro Time: DAP (Gy m2): Air Kerma (mGy): EXAMINATION: Frontal chest radiograph INDICATION: Cough COMPARISON: 01/03/2021 LOCATION: C1 FINDINGS: Enlarged cardiac silhouette with left chestdefibrillator. No definite pleural effusion or pneumothorax. No definite acute abnormality seen inthe lungs accounting for overlying prominent soft tissues. IMPRESSION: No definite acute abnormality. at 1105 Reported and signedby: Vernon Garibay M.D. CC: Yared Scott MD; Rolando Napier PAGE 1 Signed Report Name: BRYAN PARADA [facility] [place] : 1965 Age/S: 55 / M [address] [facility] Unit #: [id number] Loc: [place] [address] Phys: KarthikeyanRosinaimmanuel GONZALEZ Acct: [id number] Dis Date: Status: ADM IN PHONE#: [phone] Exam Date: 01/07/2021 1050 FAX #: Reason: Cough EXAMS: CPT: [id number] XR CHEST 1 R39583 Fluoro Time: DAP (Gy m2): Air Kerma (mGy): (Continued) Technologist: Jonna Ramirez RT(R)(MR)Trnscb Date/Time: 01/07/2021 (110) tHAYDE1 Orig Print D/T: S: 01/07/2021 (4674) PAGE 2 Signed Report GLUCOSE BEDSIDE [id number] 08:05:00* Test Item Value Reference Range Interpretation Comme nts GLUCOSE BEDSIDE TESTING (cathy t code = GLUBED) 105 mg/dL 70-110 N GLUCOSE BEDSIDE [id number] 21:27:00* Test Item Value Reference Range Interpretation Comme nts GLUCOSE BEDSIDE TESTING (cathy t code = GLUBED) 100 mg/dL 70-110 N GLUCOSE BEDSIDE [id number] 16:40:00* Test Item Value Reference Range Interpretation Comme nts GLUCOSE BEDSIDE TESTING (cathy t code = GLUBED) 89 mg/dL 70-110 N GLUCOSE BEDSIDE [id number] 12:10:00* Test Item Value Reference Range Interpretation Comme nts GLUCOSE BEDSIDE TESTING (cathy t code = GLUBED) 94 mg/dL 70-110 N GLUCOSE BEDSIDE [id number] 07:51:00* Test Item Value Reference Range Interpretation Comme nts GLUCOSE BEDSIDE TESTING (cathy t code = GLUBED) 102 mg/dL 70-110 N GLUCOSE BEDSIDE [id number] 20:30:00* Test Item Value Reference Range Interpretation Comme nts GLUCOSE BEDSIDE TESTING (cathy t code = GLUBED) 98 mg/dL 70-110 N GLUCOSE BEDSIDE [id number] 15:39:00* Test Item Value Reference Range Interpretation Comme nts GLUCOSE BEDSIDE TESTING (cathy t code = GLUBED) 102 mg/dL 70-110 N - CT ANGIO [id number] 14:06:00 [facility] 1965 Sex: M Name: BRYAN PARADA [facility] : 1965 Age/S: 55 / M [address] [address] Unit #: [id number] Loc: [place] [address] Phys: Anabela Le MD Acct: [id number] Dis Date: Status: ADM IN PHONE #: [phone] Exam Date: 01/05/2021 1335 FAX #: Reason: CVA EXAMS: CPT: [id number] CT ANGIO NECK [address] Exam: - CT ANGIO HEAD, - CT [...] thyroid gland. Largest in the left thyroid lobemeasures 2.9 cm, unchanged. Further characterization with thyroid ultrasound is recommended. Remaining PAGE 1 Signed Report (CONTINUED) Name: BRYAN PARADA [facility] : 1965 Age/S: 55/ M [address] [address] Unit #: [id number] Loc: [place] [address] Phys: Anabela Le MD Acct: [id number] Dis Date: Status: ADM IN PHONE #: [phone] Exam Date: 01/05/2021 1335 FAX #: Reason: CVA EXAMS: CPT: [id number] CT ANGIO NECK [address] (Continued) visualized fascial planes of the neck [...] be better characterized with ultrasound on nonemergent basis.FINDINGS: CTA Head Internal carotid arteries: Patent. No significant abnormality. Middle cerebral arteries (M1 and M2 segments): Patent. No significant abnormality. Anterior cerebral arteries (A1 andA2 segments): Patent. No significant abnormality. Anterior communicating artery: Patent. No significant abnormality. Vertebral arteries (V4 segments): Patent. No significant abnormality. Basilar artery and branches: Patent. No significant abnormality. Posterior inferior, anterior inferior and superior cerebellar artery origins are patent. Posterior cerebral artery (P1 and P2 segments): Patent. No significant abnormality. PAGE 2 Signed Report (CONTINUED) Name: BRYAN PARADA [facility] : 1965 Age/S: 55 / M [address] [address] Unit #: [id number] Loc: [place] [address] Phys: Anabela Le MD Acct: [id number] Dis Date: Status: ADM IN PHONE #: [phone] Exam Date: 01/05/2021 7755 FAX #: Reason: CVA EXAMS: CPT: [id number] CT ANGIO NECK [address] (Continued) Posterior communicating arteries: Not visualized Distal [...] 3 Signed Report (CONTINUED) Name: BRYAN PARADA [facility] : 1965 Age/S: 55 / M [address] [address] Unit #: [id number] Loc: [place] [address] Phys: Anabela Le MD Acct: [id number] Dis Date: Status: ADM IN PHONE #: [phone] Exam Date: 01/05/2021 1335 FAX #: Reason: CVA EXAMS: CPT: [id number] CT ANGIO NECK [address] (Continued) CC: Anabela Le MD; Yared Scott MD Technologist:Criss Sahni, RT(R)(CT); .. CTDI: DLP: Trnscb Date/Time: 01/05/2021 (1406) t.SDR.AL7 Orig Print D/T: S: 01/05/2021 (1410) PAGE 4 Signed Report- CT ANGIO [id number] 14:06:00 [facility] 1965 Sex: M Name: BRYAN PARADA [facility] : 1965 Age/S: 55 / M [address] [address] Unit #: [id number] Loc: [place] [address] Phys: Anabela Le MD Acct: [id number] Dis Date: Status: ADM IN PHONE #: [phone] Exam Date: 01/05/20211329 FAX #: Reason: CVA EXAMS: CPT: [id number] CT ANGIO HEAD [address] Exam: - CT ANGIO HEAD, - CT [...] [place] : 1965 Age/S: 55 / M [address] [address] Unit #: [id number] Loc: [place] [address] Phys: Anabela Le MD Acct: [id number] Dis Date: Status: ADM IN PHONE #: [phone] Exam Date: 01/05/2021 1330 FAX #: Reason: CVA EXAMS: CPT: [id number] CT ANGIO HEAD [address] (Continued) visualized fascial planes of the neck [...] 2 Signed Report (CONTINUED) Name: BRYAN PARADA [facility] : 1965 Age/S: 55 / M [address] [address] Unit #: [id number] Loc: [place] [address] Phys: Anabela Le MD Acct: [id number] Dis Date: Status: ADM IN PHONE #: [phone] Exam Date: 01/05/2021 1330 FAX #: Reason: CVA EXAMS: CPT: [id number] CT ANGIO HEAD [address] (Continued) Posteriorcommunicating arteries: Not visualized Distal cerebral arteries: Slight irregularity of distal cerebral arteries which may be in part artifactual although further vasculopathy is not excluded. Thereis no large vessel occlusion. There is no significant stenosis. No aneurysmal dilatation or vascular malformation. Dural venous sinuses: No visualized filling defects. Head with contrast: There is no acute intracranial hemorrhage, mass, mass effect, midline shift or extra-axial fluid collection. No abnormal parenchymal or leptomeningeal enhancement is present. The herzog-white differentiation is ma intained without evidence for acute major vessel infarct. [...] of distal cerebral arteries may be in partartifactual although further vasculopathy is considered. Electronically Signed by Gala Del Cid 01/05/2021 at 1406 Reported and signed by: Diego Paez M.D. PAGE 3 Signed Report (CONTINUED) Name: BRYAN PARADA [facility] [place] : 1965 Age/S: 55 / M [address] [address] Unit #: [id number] Loc: [place] [address] Phys: Anabela Le MD Acct: [id number] Dis Date: Status: ADM IN PHONE #: [phone] Exam Date: 01/05/2021 1330 FAX #: Reason: CVA EXAMS: CPT: [id number] CT ANGIO HEAD [address] (Continued) CC: Anabela Le MD; Yared Scott MD Technologist:Criss Sahni, RT(R)(CT); .. CTDI: DLP: Trnscb Date/Time: 01/05/2021 (1406) t.SDR.AL7 Orig Print D/T: S: 01/05/2021 (1410) PAGE 4 Signed ReportBASIC METABOLIC [id number] 12:38:00* Test Item Value Reference Range Interpretation [...] CA) 9.0 MG/DL 8.5-10.1 N CBC W/AUTO [id number] 12:28:00* Test Item Value Reference Range Interpretation [...] ode = MDIFF) NO DIFF/SCN CRITERIA PROTHROMBIN [id number] 12:27:00* Test Item Value Reference Range Interpretation Comme nts PT PATIENT (test code = PTP) 12.1 SECONDS 9.3-12.9 N INTERNATIONAL NORMAL RATIO (test code = INR) 1.08 INR Unit 0.8-1.2 N THROMBOPLASTIN TIME [id number] 12:27:00* Test Item Value Reference Range Interpretation Comme nts THROMBOPLASTIN TIME PARTIAL (test code = PTT) 33.0 SECONDS 26-35 N GLUCOSE BEDSIDE [id number] 11:56:00* Test Item Value Reference Range Interpretation Comme nts GLUCOSE BEDSIDE TESTING (cathy t code = GLUBED) 101 mg/dL 70-110 N - CT HEAD/BRAIN W/O [id number] 11:53:00 [facility] 1965 Sex: M Name: BRYAN PARADA [facility] : 1965 Age/S: 55 / M [address] [address] Unit #: [id number] Loc: [place] [address] Phys: Susan Conway MD Acct: [id number] Dis Date: Status: ADM IN PHONE#: [phone] Exam Date: 01/05/2021 1136 FAX #: Reason: left sided weakness EXAMS: CPT: [id number] CT HEAD/BRAIN W/O CONT 55905 EXAM: CT Head without contrast Location: B2 HISTORY: Left-sided weakness, CVA COMPARISON: 01/03/2021 TECHNIQUE: Multiple transaxial images of the brain were obtained without intravenous contrast. Images were reformatted to create coronal and sagittal reconstructions. One or more of the following dose reduction techniques were used: Automated exposure control, adjustment of the mA and/or kV according to patient size, and/or utilization of iterative reconstruction technique. DLP: 804 mGy-cm. FINDINGS: There is no acute intracranial hemorrhage. There is no mass, masseffect, midline shift or extra- axial fluid collection. [...] ethmoid air cells. Preliminary findings were given t immanuel Zuñiga RN in the IMU at 1151 hours PAGE 1 Signed Report (CONTINUED) Name: BRYAN PARADA [facility] : 1965 Age/S: 55 / M [address] [address] Unit #: [id number] Loc: [place] [address] Phys: Susan Conway MD Acct: [id number] Dis Date: Status: ADM IN PHONE #: [phone] Exam Date:01/05/2021 1139 FAX #: Reason: left sided weakness EXAMS: CPT: [id number] CT HEAD/BRAIN W/O CONT 02615 (Continued) on 01/05/2021 FOR INTERNAL CODING PURPOSES ONLY RESULT CODE: CVR at 1153 Reported and signed by: Diego Paez M.D. CC: Susan Conway MD; Yared Scott MD Technologist:Criss Sahni, RT(R)(CT); .. CTDI: DLP: Trnscb Date/Time: 01/05/2021 (1153) t.SDR.AL7 Orig Print D/T: S: 01/05/2021 (3385) PAGE 2 Signed ReportGLUCOSE BEDSIDE [id number] 07:54:00 * Test Item Value Reference Range Interpretation Comme nts GLUCOSE BEDSIDE TESTING (cathy t code = GLUBED) 118 mg/dL 70-110 H GLUCOSE BEDSIDE [id number] 21:52:00* Test Item Value Reference Range Interpretation Comme nts GLUCOSE BEDSIDE TESTING (cathy t code = GLUBED) 98 mg/dL 70-110 N GLUCOSE BEDSIDE [id number] 15:47:00* Test Item Value Reference Range Interpretation Comme nts GLUCOSE BEDSIDE TESTING (cathy t code = GLUBED) 124 mg/dL 70-110 H GLUCOSE BEDSIDE [id number] 11:34:00* Test Item Value Reference Range Interpretation Comme nts GLUCOSE BEDSIDE TESTING (cathy t code = GLUBED) 107 mg/dL 70-110 N GLUCOSE BEDSIDE [id number] 07:37:00* Test Item Value Reference Range Interpretation Comme nts GLUCOSE BEDSIDE TESTING (cathy t code = GLUBED) 109 mg/dL 70-110 N BASIC METABOLIC [id number] 04:53:00* Test Item Value Reference Range Interpretation [...] code = CA) 8.7 MG/DL 8.5-10.1 N [id number] 04:53:00* Test Item Value Reference Range Interpretation Comme nts PHOSPHOROUS (test code = PHOS) 3.8 MG/DL 2.5-4.9 N [id number] 04:53:00* Test Item Value Reference Range Interpretation Comme nts MAGNESIUM (test code = MAG) 2.1 MG/DL 1.8-2.4 N NT PRO-BRAIN NATRIURETIC [id number] 04:53:00* Test Item Value Reference Range Interpretation Comme nts NT PRO-BRAIN NATRIURETIC PEP TI (test code = PROBNP) 753 PG/ML 0-100 H BASIC METABOLIC [id number] 04:47:00* Test Item Value Reference Range Interpretation [...] code = CA) 8.7 MG/DL 8.5-10.1 N [id number] 04:47:00* Test Item Value Reference Range Interpretation Comme nts PHOSPHOROUS (test code = PHOS) MG/DL 2.5-4.9 [id number] 04:47:00* Test Item Value Reference Range Interpretation Comme nts MAGNESIUM (test code = MAG) 2.1 MG/DL 1.8-2.4 N NT PRO-BRAIN NATRIURETIC [id number] 04:47:00* Test Item Value Reference Range Interpretation Comme nts NT PRO-BRAIN NATRIURETIC PEP TI (test code = PROBNP) PG/ML 0-100 CBC W/AUTO [id number] 04:34:00* Test Item Value Reference Range Interpretation [...] = MDIFF) NO DIFF/SCN CRITERIA GLUCOSE BEDSIDE [id number] 22:32:00* Test Item Value Reference Range Interpretation Comme nts GLUCOSE BEDSIDE TESTING (cathy t code = GLUBED) 88 mg/dL 70-110 N GLUCOSE BEDSIDE [id number] 17:59:00* Test Item Value Reference Range Interpretation Comme nts GLUCOSE BEDSIDE TESTING (cathy t code = GLUBED) 97 mg/dL 70-110 N - XR CHEST 1 [id number] 17:25:00 [facility] 1965 Sex: M Name: BRYAN PARADA [facility] : 1965 Age/S: 55 / M [address] [address] Unit #: [id number] Loc: [place] [address] Phys: Rolando Napier Acct: [id number] Dis Date: Status: ADM IN PHONE #: [phone] Exam Date: 01/03/2021 8055 FAX #: Reason: Dyspnea EXAMS: CPT: [id number] XR CHEST 1 V 27317 Fluoro Time: DAP (Gy m2): Air Kerma (mGy): EXAM: CHEST ONE VIEW INDICATION: Dyspnea LOCATION: B2 COMPARISON: November 29, 2020 TECHNIQUE: AP view of the chest FINDINGS: The heart size is enlarged. There is a cardiac pacing device in the left chest with no apparent discontinuity of the leads. There are diffuse congestive changes bilaterally. No pneumothorax or pleural effusion is identif ied. The osseous structures are normal. IMPRESSION: Cardiomegaly with diffuse congestive changes bilaterally. at 1725 Reported and signed by: Cindy Zabala M.D. CC: Yared Scott MD; Rolando Napier PAGE 1 Signed ReportName: BRYAN PARADA [facility] : 1965 Age/S: 55 / M [address] Unit #: [id number] Loc: [place] [address] Phys: Rolando Napier Acct: [id number] Dis Date: Status: ADMIN PHONE #: [phone] Exam Date: 01/03/2021 1512 FAX #: Reason: Dyspnea EXAMS: CPT: [id number] XR CHEST 1 V 86487 Fluoro Time: DAP (Gy m2): Air Kerma (mGy): (Continued) Technologist: Polly Mcnamara, RT(R)(CT); Shahnaz Rider RT(R) [facility] Date/Time: 01/03/2021 (1724) VikramMD16 Orig Print D/T: S: 01/03/2021 (2627) PAGE 2 Signed ReportBASIC METABOLIC [id number] 14:57:00* Test Item Value Reference Range Interpretation [...] 8.9 MG/DL 8.5-10.1 N Completed by Nursing: [id number]-[id number] 14:57:00* Test Item Value Reference Range Interpretation [...] method. Completed by Nursing: NOCOVID 19 INHOUSE [id number] 14:55:00* Test Item Value Reference Range Interpretation Comme nts COVID 19 INHOUSE AG (test code = [id number]) NEGATIVE Negative Per quencher operator , negative results should be treated aspresumptive [...] symptoms consistent with COVID-19. Spec Comments: NPROTHROMBIN [id number] 14:54:00* Test Item Value Reference Range Interpretation Comme nts PT PATIENT (test code = PTP) 11.0 SECONDS 9.3-12.9 N INTERNATIONAL NORMAL RATIO (test code = INR) 0.98 INR Unit 0.8-1.2 N THROMBOPLASTIN TIME [id number] 14:54:00* Test Item Value Reference Range Interpretation Comme nts THROMBOPLASTIN TIME PARTIAL (test code = PTT) 30.0 SECONDS 26-35 N - CT ANGIO [id number] 14:53:00 [facility] 1965 Sex: M Name: BRYAN PARADA [facility] : 1965 Age/S: 55 / M [address] Unit #: [id number] Loc: [place] [address] Phys: Musa Alfaro DO Acct: [id number] Dis Date: Status: REG ER PHONE#: [phone] Exam Date: 01/03/2021 2835 FAX #: Reason: left sided weakness EXAMS: CPT: [id number] CT ANGIO HEAD [address]326 B2 - CT ANGIO NECK, - CT [...] 1 Signed Report (CONTINUED) Name: [facility]ADA [facility] [place] : 1965 Age/S: 55 / M [address] Unit #: [id number] Loc: [place] [address] Phys: Musa Alfaro DO Acct: [id number] Dis Date: Status: REG ER PHONE #: [phone] Exam Date: 01/03/2021 1425 FAX #: Reason: left sided weakness EXAMS: CPT: [id number] CT ANGIO HEAD [address] (Continued) Both posterior cerebral arteries are normal. [...] IMPRESSION: Normal head and neck CTA. at 2143 Reported and signed by: Dagoberto Mayer M.D. CC: Musa Alfaro DO Technologist:Shahnaz Rider, RT(R) CTDI:DLP: Trnscb Date/Time: 01/03/2021 (293) t.SDR.VB7 Orig Print D/T: S: 01/03/2021 (0919) PAGE 2 Signed Report- CT ANGIO [id number] 14:53:00[facility] : 1965 Sex: M Name: BRYAN PARADA [facility] : 1965 Age/S: 55 / M [address] Unit #: [id number] Loc: [place] [address] Phys: Musa Alfaro DO Acct: [id number] Dis Date: Status: REG ER PHONE #: [phone] Exam Date: 01/03/20211428 FAX #: Reason: left sided weakness EXAMS: CPT: [id number] CT ANGIO NECK 76368 B2 - CT ANGIO NECK, - CT [...] 1 Signed Report (CONTINUED) Name: [facility] PARADA [facility] [place] : 1965 Age/S: 55 / M [address] Unit #: [id number] Loc: [place] [address] Phys: Musa Alfaro DO Acct: [id number] Dis Date: Status: REG ER PHONE #: [phone] Date: 01/03/2021 142 FAX #: Reason: left sided weakness EXAMS: CPT: [id number] CT ANGIO NECK 13905 (Continued) Both posterior cerebral arteries are normal. The vertebral arteries are patent andcodominant. The basilar artery and origins of the bilateral posterior inferior cerebellar arteries,anterior inferior cerebellar arteries, and superior cerebellar arteries are normal. No saccular aneurysm, proximal arterial cut off, intra-arterial clot, or hemodynamically significant intracranial arterial stenosis is present. Maximum intensity projection images confirm these findings. IMPRESSION:Normal head and neck CTA. at 5233 Reported and signed by: Dagoberto Mayer M.D. CC: Musa Alfaro DO Technologist:Shahnaz Rider, RT(R) CTDI: DLP: Trnscb Date/Time: 01/03/2021 (2317) [id number] Orig Print D/T: S: 01/03/2021 (3622) PAGE 2 Signed ReportCBC W/O [id number] 14:32:00* Test Item Value Reference Range Interpretation [...] fL 7.0-9.6 H - CT HEAD/BRAIN W/O [id number] 14:20:00 [facility] : 1965 Sex: M Name: BRYAN PARADA : 1965 Age/S: 55 / M [address] Unit #: [id number] Loc: [place] [address] Phys: Musa Alfaro DO Acct: [id number] Dis Date: Status: PRE ER PHONE #: [phone] Exam Date: 01/03/2021 140 FAX #: Reason: Code Stroke EXAMS: CPT: [id number] CT HEAD/BRAIN W/O CONT 49396 EXAMINATION: Head CT without contrast INDICATION: Code stroke COMPARISON: 11/29/2020 LOCATION: S17 TECHNIQUE: Axial noncontrast head CT was performed. Sagittal and coronal reformatted images were created. CT radiation dose optimization is achieved for this examination by the use of a CT protocol in accordance with ACR practice guidelines and adherence to quencher operator recommendations. DLP: 836 mGy-cm. FINDINGS: Mild-moderate supratentorial white matter hypodensities which may represent chronic microvascular ischemic changes although nonspecific. No mass effect, intracranial hemorrhage, or extra-axial fluid collection. No CT evidence of acute cortical infarct. Prostheticleft globe. Unremarkable right orbit. Imaged paranasal sinuses and mastoid air cells are clear. No acute osseous abnormality is identified. IMPRESSION: No acute intracranial abnormality identified. Discussed with Dr. Alfaro at 1419 on 01/03/2021. at 1420 Reported and signed by: Vernon Garibay M.D. CC: Musa Alfaro DO Technologist:Juan Hernandez, RT(R)(CT); Cathie CTDI: DLP: Trnscb Date/Time: 01/03/2021 (1419) VikramPE1 Orig Print D/T: S: 01/03/2021 (7391) PAGE 1 Signed ReportGLUCOSE BEDSIDE [id number] 11:35:00* Test Item Value Reference Range Interpretation Comme nts GLUCOSE BEDSIDE TESTING (cathy t code = GLUBED) 115 MG/DL 70-119 N CBC W/AUTO [id number] 09:54:00* Test Item Value Reference Range Interpretation [...] NRBC#) 0.00 K/mm3 0.00-0.05 N RECOLLECTGLUCOSE BEDSIDE [id number] 07:34:00* Test Item Value Reference Range Interpretation Comme nts GLUCOSE BEDSIDE TESTING (cathy t code = GLUBED) 116 MG/DL 70-119 N BASIC METABOLIC [id number] 06:24:00* Test Item Value Reference Range Interpretation [...] used to interpret this result as normal/abnormal. [id number] 06:24:00* Test Item Value Reference Range Interpretation Comme nts MAGNESIUM (test code = MAG) 2.3 MG/DL 1.6-2.6 N GLUCOSE BEDSIDE [id number] 20:37:00* Test Item Value Reference Range Interpretation Comme nts GLUCOSE BEDSIDE TESTING (cathy t code = GLUBED) 118 MG/DL 70-119 N GLUCOSE BEDSIDE [id number] 16:47:00* Test Item Value Reference Range Interpretation Comme nts GLUCOSE BEDSIDE TESTING (cathy t code = GLUBED) 100 MG/DL 70-119 N GLUCOSE BEDSIDE [id number] 07:44:00* Test Item Value Reference Range Interpretation Comme nts GLUCOSE BEDSIDE TESTING (cathy t code = GLUBED) 121 MG/DL 70-119 H GLUCOSE BEDSIDE [id number] 19:59:00* Test Item Value Reference Range Interpretation Comme nts GLUCOSE BEDSIDE TESTING (cathy t code = GLUBED) 135 MG/DL 70-119 H GLUCOSE BEDSIDE [id number] 15:51:00* Test Item Value Reference Range Interpretation Comme nts GLUCOSE BEDSIDE TESTING (cathy t code = GLUBED) 85 MG/DL 70-119 N - NM MYOCRD SPECT R/S [id number] 13:57:00 [facility] : 1965 Sex: M----- Patient Name: BRYAN PARADA Unit No: [id number] EXAMS: CPT CODE: [id number] NM MYOCRD SPECT R/S MULT 77731 Patient was brought to the stress test room. Baseline EKG was obtained and EKG and hemodynamics were monitored throughout the procedure. Patient was injected 17.9 mCi of technetium sestamibi at rest and resting images were obtained. Lexiscan was then given per protocol technetium 33.8 mCi was injected at the stress test phase. Perfusion images analysis revealed a medium, moderate, reversible inferior defect, in addition there is a large fixed lateral defect. Wall motion analysis revealed severe global hypokin esis. EF was calculated at 19%. IMPRESSION: Medium, moderate inferior ischemia. Large lateral scar.Severe global hypokinesis. EF calculated at 19%. at 1357 Reported and signed by: Janiya Huber MD Nuclear Medicine Cardiology exams performed on dual head cameras with appropriate software for processing and reporting. CC: Alexa DELA CRUZ,KIKO,SIVAN Montelongo; Chuckie Olmos [facility] NAME: BRYAN PARADA [facility] IMAGING PHYS: Alexa Farrell APRN,[address] : 1965 AGE: 54 SEX: Kimberly [place], [place] [address] LOC: [address] PHONE #: [phone] EXAM DATE: 12/01/2020 STATUS: ADM IN FAX #: [phone] RAD NO: DC Dt: PAGE 1 Signed Report Patient Name: BRYAN PARADA Unit No: [id number] EXAMS: CPT CODE: [id number] NM MYOCRD SPECT R/S [facility] [address] <Continued> Technologist: Macy Obrien; Palomo Sepulveda Transcribed Date/Time: 12/03/2020 (2836) - Zoran.AA6 Orig Print D/T: S: 12/03/2020 (1400) EMILY Chamorro NAME:[facility]AG[facility] PHYS: INNPA - Reginald,Alexa [facility] CALL CENTER AGENT,[address] : 1965 AGE: 54 SEX: Kimberly [place], [place] [address] LOC: B.[address] PHONE #: [phone] EXAM DATE: 12/01/2020 STATUS: ADM IN FAX #: [phone] RAD NO: DC Dt: PAGE 2 Signed ReportGLUCOSE BEDSIDE [id number] 11:46:00* Test Item Value Reference Range Interpretation Comme nts GLUCOSE BEDSIDE TESTING (cathy t code = GLUBED) 114 MG/DL 70-119 N [id number] 07:43:00* Test Item Value Reference Range Interpretation Comme nts CKMB (test code = CKMBT) 1.1 NG/ML 1.0-3.6 N MONOCLONAL CKMB METHODOLOGY. [id number] 07:43:00* Test Item Value Reference Range Interpretation Comme nts TROPONIN-I (test code = TROPI) 0.031 NG/ML 0.000-0.045 INTERPRET WITH Tess SPRING, THIS VALUE EXCEEDS THE LOWER LIMITOF LINEARITY VERIFICATION ESTABLISHED BY THE LABORATORY.An elevated troponin value alone is not sufficient todiagnose a myocardial infarction. Rather, the patient'sclinical presentation (history, physical exam) and ECGshould be used in conjunction with troponin in thediagnostic evaluation of suspected myocardial infarction. Aserial sampling protocol is recommended to facilitate theidentification of temporal changes in troponin levelscharacteristic of MO. GLUCOSE BEDSIDE [id number] 07:35:00* Test Item Value Reference Range Interpretation Comme nts GLUCOSE BEDSIDE TESTING (cathy t code = GLUBED) 104 MG/DL 70-119 N [id number] 07:24:00* Test Item Value Reference Range Interpretation Comme nts CKMB (test code = CKMBT) NG/ML 1.0-3.6 [id number] 07:24:00* Test Item Value Reference Range Interpretation Comme nts TROPONIN-I (test code = TROPI) 0.031 NG/ML 0.000-0.045 INTERPRET WITH Tess SPRING, THIS VALUE EXCEEDS THE LOWER LIMITOF LINEARITY VERIFICATION ESTABLISHED BY THE LABORATORY.An elevated troponin value alone is not sufficient todiagnose a myocardial infarction. Rather, the patient'sclinical presentation (history, physical exam) and ECGshould be used in conjunction with troponin in thediagnostic evaluation of suspected myocardial infarction. Aserial sampling protocol is recommended to facilitate theidentification of temporal changes in troponin levelscharacteristic of MO. BASIC METABOLIC [id number] 06:50:00* Test Item Value Reference Range Interpretation [...] used to interpret this result as normal/abnormal. [id number] 06:50:00* Test Item Value Reference Range Interpretation Comme nts MAGNESIUM (test code = MAG) 2.2 MG/DL 1.6-2.6 N BASIC METABOLIC [id number] 06:24:00* Test Item Value Reference Range Interpretation [...] used to interpret this result as normal/abnormal. [id number] 06:24:00* Test Item Value Reference Range Interpretation Comme nts MAGNESIUM (test code = MAG) MG/DL 1.6-2.6 GLUCOSE BEDSIDE [id number] 19:35:00* Test Item Value Reference Range Interpretation Comme nts GLUCOSE BEDSIDE TESTING (cathy t code = GLUBED) 130 MG/DL 70-119 H GLUCOSE BEDSIDE [id number] 16:35:00* Test Item Value Reference Range Interpretation Comme nts GLUCOSE BEDSIDE TESTING (test code = GLUBED) 103 MG/DL 70-119 N Notified Nu rse~ GLUCOSE BEDSIDE [id number] 12:00:00* Test Item Value Reference Range Interpretation Comme nts GLUCOSE BEDSIDE TESTING (test code = GLUBED) 128 MG/DL 70-119 H Notified Nu rse~ GLUCOSE BEDSIDE [id number] 08:28:00* Test Item Value Reference Range Interpretation Comme nts GLUCOSE BEDSIDE TESTING (test code = GLUBED) 123 MG/DL 70-119 H Notified Nu rse~ GLUCOSE BEDSIDE [id number] 19:40:00* Test Item Value Reference Range Interpretation Comme nts GLUCOSE BEDSIDE TESTING (cathy t code = GLUBED) 84 MG/DL 70-119 N GLUCOSE BEDSIDE [id number] 16:53:00* Test Item Value Reference Range Interpretation Comme nts GLUCOSE BEDSIDE TESTING (test code = GLUBED) 100 MG/DL 70-119 N Notified Nu rse~ GLUCOSE BEDSIDE [id number] 13:00:00* Test Item Value Reference Range Interpretation Comme nts GLUCOSE BEDSIDE TESTING (cathy t code = GLUBED) 128 MG/DL 70-119 H GLUCOSE BEDSIDE [id number] 08:35:00* Test Item Value Reference Range Interpretation Comme nts GLUCOSE BEDSIDE TESTING (cathy t code = GLUBED) 95 MG/DL 70-119 N GLUCOSE BEDSIDE [id number] 19:49:00* Test Item Value Reference Range Interpretation Comme nts GLUCOSE BEDSIDE TESTING (cathy t code = GLUBED) 117 MG/DL 70-119 N GLUCOSE BEDSIDE [id number] 16:52:00* Test Item Value Reference Range Interpretation Comme nts GLUCOSE BEDSIDE TESTING (cathy t code = GLUBED) 103 MG/DL 70-119 N GLUCOSE BEDSIDE [id number] 12:30:00* Test Item Value Reference Range Interpretation Comme nts GLUCOSE BEDSIDE TESTING (cathy t code = GLUBED) 121 MG/DL 70-119 H GLUCOSE BEDSIDE [id number] 07:43:00* Test Item Value Reference Range Interpretation Comme nts GLUCOSE BEDSIDE TESTING (cathy t code = GLUBED) 96 MG/DL 70-119 N COMPREHENSIVE METABOLIC [id number] 05:53:00* Test Item Value Reference Range Interpretation [...] used to interpret this result as normal/abnormal. [id number] 05:53:00* Test Item Value Reference Range Interpretation Comme nts MAGNESIUM (test code = MAG) 2.2 MG/DL 1.6-2.6 N COMPREHENSIVE METABOLIC [id number] 05:38:00* Test Item Value Reference Range Interpretation [...] (test code = LDL/HDL) Ratio See_Comment [Automated [employer]] The system which generated this result transmitted reference range: 1.48-3.22 Avg. The reference range was not used to interpret this result as normal/abnormal. [id number] 05:38:00* Test Item Value Reference Range Interpretation Comme nts MAGNESIUM (test code = MAG) MG/DL 1.6-2.6 GLYCOSYLATED HEMOGLOBIN (HA1C)2020-11-30 05:21:00* Test Item Value Reference Range Interpretation Comme nts GLYCOSYLATED HEMOGLOBIN (HA1 C) (test code = GLYHGB) 5.9 % IS-A1C 4.5-5.6 H Specimen comments: use blood sample in the labComments to Senior Account Manager: use blood sample in the labCBC W/AUTO [id number] 05:12:00* Test Item Value Reference Range Interpretation [...] code = NRBC#) 0.00 K/mm3 0.00-0.05 N [id number] 00:17:00* Test Item Value Reference Range Interpretation Comme nts CKMB (test code = CKMBT) 1.4 NG/ML 1.0-3.6 N MONOCLONAL CKMB METHODOLOGY. [id number] 00:17:00* Test Item Value Reference Range Interpretation Comme [facility] TROPONIN-I (test code = TROPI) 0.025 NG/ML [...] of temporal changes in troponin levelscharacteristic of MO. [id number] 23:57:00* Test Item Value Reference Range Interpretation Comme [facility] CKMB (test code = CKMBT) NG/ML 1.0-3.6 [id number] 23:57:00* Test Item Value Reference Range Interpretation Comme [facility] TROPONIN-I (test code = TROPI) 0.025 NG/ML [...] of temporal changes in troponin levelscharacteristic of MO. GLUCOSE BEDSIDE [id number] 20:50:00* Test Item Value Reference Range Interpretation Comme [facility] GLUCOSE BEDSIDE TESTING (cathy t code = GLUBED) 126 MG/DL 70-119 H [id number] 20:10:00* Test Item Value Reference Range Interpretation Comme [facility] CKMB (test code = CKMBT) 1.6 NG/ML 1.0-3.6 N MONOCLONAL CKMB METHODOLOGY. [id number] 20:10:00* Test Item Value Reference Range Interpretation [...] of temporal changes in troponin levelscharacteristic of MO. [id number] 19:57:00* Test Item Value Reference Range Interpretation Comme [facility] CKMB (test code = CKMBT) NG/ML 1.0-3.6 [id number] 19:57:00* Test Item Value Reference Range Interpretation [...] of temporal changes in troponin levelscharacteristic of MO. COVID 19 Asymptomatic IH [id number] 18:32:00* Test Item Value Reference Range Interpretation Comme [facility] COVID 19 Asymptomatic IH AG (test code = COVNONPUIAG) Negative Neg - CT ANGIO [id number] 17:08:00 [facility] : 1965 Sex: M Patient Name: BRYAN PARADA Unit No: [id number] EXAMS: CPT CODE: [id number] CT ANGIO HEAD [address] Dictation location: H37. CT ANGIOGRAM OF THE NECK AND HEAD WITH IV CONTRAST; MIP AND 3-D RECONSTRUCTIONS HISTORY: Left sided weakness COMPARISON: None TECHNIQUE: Axial CT images of the neck and head were obtained with coronal and/or sagittal reformatted views. MIP and/or 3-D reconstruction were obtained o f the carotid arteries in the neck and mashpee of [place]. Automated exposure control, iterative reconstruction technique, and/or adjustment of mA and/or kV according to patient's size was utilized forradiation dose reduction. IV CONTRAST: 100 ml Isovue-370. [...] of the neck is essentially nondiagnostic. Probably nosignificant carotid stenosis. CTA head is limited. No definite occlusion or aneurysm. [facility] Pedro Pablo NAME: BRYAN PARADA [address] [place] [address] Blvd PHYS: RADAMES - Chuckie Olmos, [place] [address] : 1965 AGE: 54 SEX: M LOC: LISA PHONE #: [phone] EXAM DATE: 11/29/2020 STATUS: REG ER FAX #: [phone] RAD #: D/C DT PAGE 1 Signed Report (CONTINUED) Patient Name: BRYAN PARADA Unit No: [id number] EXAMS: CPT CODE: [id number] CT ANGIO HEAD [address] <Continued> at 1708 Reported and signed by: Uriah Moran MD CC: Chuckie Olmos DO Dictated Date/Time: 11/29/2020 (170) Technologist: Luisana Mederos CTDI: 73.04 DLP: 4.21 Trnscrpt: 11/29/2020 (170) Zoran.SP17 EMILY Chamorro NAME: [address] PHYS: RADAMES Belcher OlmosChuckie vazquez Francoise [place], [place] [address] : 1965 AGE: 54 SEX: M LOC: B.[employer] PHONE #: [phone] EXAM DATE: 11/29/2020 STATUS: REG ER FAX #: [phone] RAD #: D/C DT PAGE 2 Signed Report Patient Name: BRYAN PARADA Unit No: [id number] EXAMS: CPT CODE: [id number] CT ANGIO HEAD [address] <Continued> Orig Print D/T: S: 11/29/2020 (1711) EMILY Chamorro NAME: [address] PHYS: RADAMES Belcher OlmosCuco vazquezmickey [place] [address] : 1965 AGE: 54 SEX: M LOC: B.ERS PHONE #: [phone] EXAM DATE: 11/29/2020 STATUS: REG ER FAX #: [phone] RAD #: D/C DT PAGE 3 Signed Report- CT ANGIO NECK 2020-11-29 17:08:00 [facility] BR[facility] : 1965 Sex: M Patient Name: BRYAN PARADA Unit No: [id number] EXAMS: CPT CODE: [id number] CT ANGIO NECK [address] Dictation location: H37. CT ANGIOGRAM OF THE NECK AND HEAD WITH IV CONTRAST; MIP AND 3-D RECONSTRUCTIONSHISTORY: Left sided weakness COMPARISON: None TECHNIQUE: Axial CT images of the neck and head were obtained with coronal and/or sagittal reformatted views. MIP and/or 3-D reconstruction were obtainedof the carotid arteries in the neck and mash[place] of [place]. Automated exposure control, iterative reconstruction [...] is limited. No definite occlusion or aneurysm. [facility] [place]: BRYAN PARADA [address] [place] [address] Bl PHYS: ARVIN.Dinesh - Chuckie OlmosArgyle, [place] [address] : 1965 AGE: 54 SEX: M LOC: Coy.ERS PHONE #: [phone] EXAM DATE: 11/29/2020 STATUS: REG ER FAX #: [phone] RAD #: D/C DT PAGE 1 Signed Report (CONTINUED) Patient Name: BRYAN PARADA Unit No: [id number] EXAMS: CPT CODE: [id number] CT ANGIO NECK [address] <Continued> at 1708 Reported and signed by: Uriah Moran MD CC: Chuckie Olmos DO Dictated Date/Time: 11/29/2020 (170) Technologist: Luisana Mederos CTDI: 0 DLP: 0 Trnscrpt: 11/29/2020 (170) BryannaR.SP17 EVERNoreen Pedro Pablo NAME: [address] PHYS: ARVIN.Dinesh [place] [address] : 1965 AGE: 54 SEX: M LOC: AleshiaERS PHONE #: [phone] EXAMDATE: 11/29/2020 STATUS: REG ER FAX #: [phone] RAD #: D/C DT PAGE 2 Signed Report Patient Name: BRYAN PARADA Unit No: [id number] EXAMS: CPT CODE: [id number] CT ANGIO NECK [address] <Continued> Orig Print D/T: S: 11/29/2020 (1711) EMILY Chamorro NAME: [address] PHYS: RAVIN.Dinesh [place]olasChuckieroeS[place] [address] : 1965 AGE: 54 SEX: M LOC: B.ERS PHONE #: [phone] EXAM DATE: 11/29/2020 STATUS: REG ER FAX #: [phone] RAD #: D/C DT PAGE 3 Signed Report- XR CHEST 1 [id number] 11:48:00 [facility] : 1965 Sex: M Name: BRYAN PARADA [place] : 1965 Age/S: 54 / M [address] Unit #: [id number] Loc: [place] [address] Phys: Maximino Ham MD Acct: [id number] Dis Date: Status: REG ER PHONE #: [phone] Exam Date: 11/29/2020 1108 FAX #: Reason: chest pain, stroke symptoms EXAMS: CPT: [id number] XR CHEST 1 V 06476 Fluoro Time: DAP (Gy m2): Air Kerma [...] PAGE 1 Signed Report Name: BRYAN PARADA [place] : 1965 Age/S: 54 / M [address] Unit #: [id number] Loc: [place] [address] Phys: Maximino Ham MD Acct: [id number] Dis Date: Status: REG ER PHONE #: [phone] Exam Date: 11/29/2020 1108 FAX #: Reason: chest pain, stroke symptoms EXAMS: CPT: [id number] XR CHEST 1 V 90820 Fluoro Time: DAP (Gy m2): Air Kerma (mGy): (Continued) Technologist: Bandar Tirado, RT(R)(CT) Trnscb Date/Time: 11/29/2020 (1148) t.SYEDR.ANS4 Orig Print D/T: S: 11/29/2020 (0130) PAGE 2 Signed Report- CT ABD PELVIS W/[id number] 11:20:00 [facility] : 1965 Sex: M Name: BRYAN PARADA [facility] : 1965 Age/S: 54 / M [address] [address] Unit #: [id number] Loc: [place] [address] Phys: Maximino Ham MD Acct: [id number] Dis Date: Status: REG ER PHONE #: [phone] Exam Date: 11/29/2020 1046 FAX #: Reason: rule out dissection EXAMS: CPT: [id number] CT ABD PELVIS W/CONT 38660 LOCATION: T18 EXAM: CT CHEST WITH CONTRAST [...] No mediastinal or hilar adenopathy is seen. Thetrachea and main bronchi are patent. Tiny areas [...] 1 Signed Report (CONTINUED) Name: [facility] PARADA [facility] [place] : 1965 Age/S: 54 / M [address] Unit #: [id number] Loc: [place] [address] Phys: Maximino Ham MD Acct: [id number] Dis Date: Status: REG ER PHONE #: [phone] Exam Date: 11/29/2020 1046 FAX #: Reason: rule out dissection EXAMS : CPT: [id number] CT ABD PELVIS W/CONT 39854 (Continued) at 1120 Reported and signed by: Bill Lake M.D. CC: Maximino Ham MD Technologist:Gala Menard RT(R); Shahnaz CTDI: DLP: Trnscb Date/Time: 11/29/2020 (1120) tELIA.JP19 Orig Print D/T: S: 11/29/2020 (1123) PAGE 2 Signed Report- CT CHEST W/[id number] 11:20:00 [facility] : 1965 Sex: M Name: BRYAN PARADA [facility] : 1965 Age/S: 54 / M [address] [address] Unit #: [id number] Loc: [place] [address] Phys: Maximino Ham MD Acct: [id number] Dis Date: Status: REG ER PHONE #: [phone] Exam Date: 11/29/2020 1056 FAX #: Reason: rule out dissection EXAMS: CPT: [id number] CT CHEST W/CONTRAST 30701 LOCATION: T18 EXAM: CT CHEST WITH CONTRAST EXAM: CT ABDOMEN AND PELVISWITH CONTRAST INDICATION: Chest pain and weakness, left-sided weakness, rule out dissection COMPARISON: Chest x-ray November 29, 2020 at 0934 hours. TECHNIQUE: Helically acquired axial CT images of thechest, abdomen, and pelvis were obtained. 100 ml of Isovue 300 was given intravenously. Up-to-date C T equipment and radiation dose reduction techniques were [...] Signed Report (CO NTINUED) Name: BRYAN PARADA [place] : 1965 Age/S: 54 / M [id number] Unit #: [id number] Loc: [place] [address] Phys: Maximino Ham MD Acct: [id number] Dis Date: Status: REG ER PHONE #: [phone] Exam Date: 11/29/2020 1056 FAX #: Reason: rule out dissection EXAMS: CPT: [id number] CT CHEST W/CONTRAST 22548 (Continued) at 1120 Reported and signed by: Bill Lake M.D. CC: Maximino Ham MD Technologist:Gala Menard, RT(R); Shahnaz CTDI: DLP: Trnscb Date/Time: 11/29/2020 (1120) [email or web address] Orig Print D/T: S: 11/29/2020 (1123) PAGE 2 Signed Report- CT HEAD/BRAIN W/O [id number] 11:15:00[facility] 1965 Sex: M Name: BRYAN PARADA [facility] : 1965 Age/S: 54 / M [id number] Unit #: [id number] Loc: [place] [address] Phys: Maximino Ham MD Acct: [id number] Dis Date: Status: REG ER PHONE #: [phone] Exam Date: 11/29/2020 1045 FAX #: Reason: CVA symptoms EXAMS: CPT: [id number] CTHEAD/BRAIN W/O CONT [id number] EXAM: - CT HEAD/BRAIN W/O CONT INDICATION: [...] 11/29/2020 (1118) PAGE 1 Signed ReportCOMPREHENSIVE METABOLIC [id number] 10:03:00* Test Item Value Reference Range Interpretation [...] 65 Unit/L 50-136 N Completed by Nursing: [id number] 10:03:00* Test Item Value Reference Range Interpretation [...] varyby method. Completed by Nursing: NOCBC W/AUTO [id number] 09:45:00* Test Item Value Reference Range Interpretation [...] CRITERIA Consult Notes Date/Time Note Provider Source 2024-10-03 11:41:02 Associated Order(s): IP CONSULT TO SOCIAL WORK Sw spoke with Pt. Pt does not have any friends or family who can come pick him up. Pt lives all the way in [facility] [place] [facility]. Sw is coordinating with Medicaid to see if they can cover his ride back home. in the event they are not able to cover his ride back home Sw will provide Lyft voucher. LE HELPER [facility] 2024-09-20 17:14:18 Associated Order(s): CONSULT CARDIOLOGY Patient was already discharged when I went to see him. [facility] 2024-08-11 14:57:34 Associated Order(s): CONSULT WOUND, OSTOMY, OR CONTINENCE CARE TEAM NURSING WOUND CARE EVALUATION CC: Consult for evaluation of: Please give recommendation or opinion on Left chest wall wound at [facility] site . Pertinent PMH: Past Medical History: Diagnosis Date ACC/AHA [...] and unspecified hyperlipidemia Stroke Uncontrolled hypertension 05/03/2015 . Nutritional Status: Orders Placed This Encounter Procedures Cardiac (2 gm Sodium, Low Fat, Low Cholesterol) Diet; Diet Texture: Regular . WOUND ASSESSMENT: Wound to the left chest is intact. Incision is approximated, no drainage noted or foul odor noted. There is currently a Mepilex in place over the site that was recently placed by bedside nurse. RECOMMENDATIONS: Observe for and drainage or dehiscence of incision. EDUCATION: Patient informed that his incision is intact and no further action is necessary at this time. Interventions reviewed with: _X_Patient ___Family __X_Staff PLAN: ___Nursing to Implement Impaired Skin Integrity Care Plan and appropriate interventions ___Optimize nutrition and glycemic control (If indicated) to support wound healing ___Contact wound nurse if wound found to be worsening or not progressing towards healing within one week Denis Owusu MSN RN CBRN CWOCN- under the direct supervision of Ludy Tirado RN Ludy Tirado BSN RN CWOCN Wound Ostomy Continence Nurse Adult Patient Care Services P [phone] M [phone] LE HELPER Denis Owusu RN [facility] 2024-08-11 14:24:40 Associated Order(s): CONSULT CARDIAC ELECTROPHYSIOLOGY EP Cardiology Consult Note Date of Service: 08/11/2024 14:49 Time: 2:25 PM Service: CCU Chief Complaint: Chest pain Reason for consult: Aflutter. 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 EKG on admission showed V paced rhythm with Atrial flutter. Discussed treatment strategies for Aflutter, and pt would like to proceed with ablation. 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 ROS: Per HPI Past Medical History: Diagnosis Date ACC/AHA stage [...] N/A 02/19/2017 Surgeon: Fran Canchola MD; Location: [facility] OR Location ESOPHAGOGASTRODUODENOSCOPY N/A 07/20/2019 Surgeon: Maddi Ballesteros MD; Location: [facility] OR Location ESOPHAGOGASTRODUODENOSCOPY N/A 04/03/2021 Surgeon: Fran Trinh MD; Location: [facility] ([facility]) OR Location JOINT SURGERY Right 11/2016 Right knee PACEMAKERS INSERTION Family History Problem Relation Age of Onset CHF (congestive heart failure) Mother Depression Mother Hypertension Mother Diabetes Mother Diabetes Father Hypertension Father Heart Father Heart Sister Social History Socioeconomic History Marital status: Single Number of children: 2 Highest education level: High school graduate Occupational History Occupation: Disabled Comment: SSDI Tobacco Use Smoking status: Never Passive exposure: Past Smokeless tobacco: Never Vaping Use Vaping status: Never Used Substance and Sexual Activity Alcohol use: Not Currently Comment: 1 cup of whiskey but last dirnk in December Drug use: Never Sexual activity: Yes Partners: Male, Female control/protection: Condom Social History Narrative Lives in an apt in [place], [place] himself. Social Determinants of Health Financial Resource Strain: Medium Risk (04/13/2024) Overall Financial Resource Strain (CARDIA) Difficulty of Paying Living Expenses: Somewhat hard Food Insecurity: No Food Insecurity (08/11/2024) NCSS - Food Insecurity Worried About Running Out of Food in the Last Year: No Ran Out of Food in the Last Year: No Transportation Needs: No Transportation Needs (08/11/2024) NCSS - Transportation Lack of Transportation: No Physical Activity: Insufficiently Active (04/13/2024) Exercise Vital Sign Days of Exercise per Week: 3 days Minutes of Exercise per Session: 40 min Social Connections: Unknown (04/06/2024) Social Connection and Isolation Panel [NHANES] Frequency of Communication with Friends and Family: More than three times a week Marital Status: Never Housing Stability: Not At Risk (08/11/2024) NCSS - Housing/Utilities Has Housing: Yes Worried About Losing Housing: No Unable to Get Utilities: No Allergies Allergen Reactions Imdur [Isosorbide Mononitrate] Other - See comments Severe hypotension, likely from severe LVH per Dr. Sanderson. Prior to Admission medications Medication Sig Start Date End Date Taking? Authorizing Provider cephALEXin 500 mg capsule Take 1 capsule by mouth 4 (four) times daily for 10 days. 08/01/24 08/11/24 Yes Mercy Webb DO atorvastatin 80 mg tablet Take 1 tablet by mouth at bedtime. Patient taking differently: Take 0.5 tablets by mouth at bedtime. 07/21/24 Yes Lillian Alvarado MD furosemide 80 mg tablet Take 1 tablet by mouth every morning and evening. 07/21/24 Yes Lillian Alvarado MD lisinopriL 5 mg tablet Take 1 tablet by mouth in the morning. 07/22/24 Yes Lillian Alvarado MD metoprolol succinate XL 25 mg 24 hr tablet Take 1/2 (one-half) tablet by mouth in the morning. 07/22/24 Yes Lillian Alvarado MD apixaban 5 mg tablet Take 1 tablet by mouth in the morning and 1 tablet in the evening. Indications: atrial fibrillation 06/01/24 Yes David Ladd MD aspirin 81 mg chewable tablet Take 1 tablet by mouth in the morning. 06/01/24 Yes David Ladd MD busPIRone 5 mg tablet Take 1 tablet by mouth in the morning and 1 tablet in the evening. 05/17/24 Yes Criss Leyva DO empagliflozin (JARDIANCE) 10 mg tablet Take 1 tablet by mouth in the morning. 05/17/24 Yes Criss Leyva DO gabapentin 100 mg capsule Take 1 capsule by mouth in the morning and 1 capsule at noon and 1 capsule in the evening. 05/17/24 Yes Criss Leyva DO omeprazole 40 mg capsule Take 1 capsule by mouth in the morning. 05/17/24 Yes Criss Leyva DO spironolactone (ALDACTONE) 25 mg tablet Take 1 tablet by mouth in the morning. 05/17/24 Yes Criss Leyva DO allopurinoL 300 mg tablet Take 1 tablet by mouth every morning. 04/13/24 Yes Brooks Barker NP lidocaine-prilocaine 2.5-2.5 % cream Apply to area(s) 2 (two) times daily. 04/20/24 Brooks Barker NP methocarbamoL 500 mg tablet Take 1 tablet by mouth 3 (three) times daily as needed for Pain (scale 7-10) (Knee pain). 04/18/24 Brooks Barker NP blood sugar diagnostic strip Check blood sugar 2 times a day. E11.9. Brand per insurance. 04/13/24 Brooks Barker NP Blood-Glucose Meter Kit Check sugars 2 times a day. Dx. Code E11.9 Brand per Insurance 04/13/24 Brooks Barker NP Lancets Misc Check sugars 1 times a day. Dx Code E11.9. Brand per insurance. 04/13/24 Brooks Barker NP Current Facility-Administered Medications: [START ON 08/12/2024] allopurinoL (ZYLOPRIM) tablet 300 mg, 300 mg, Oral, Luisa WASHINGTON Meghana, MD amiodarone (CORDARONE) 900 mg in NaCl 0.9% (NS) 500 mL infusion, 0.5 mg/min, IV Infusion, CONTINUOUS, Criss Leyva DO, Last Rate: 16.67 mL/hr at 08/11/24 1043, 0.5 mg/min at 08/11/24 1043 cephALEXin (KEFLEX) capsule 500 mg, 500 mg, Oral, QID, Jose Pan MD, 500 mg at 08/11/24 1143 pantoprazole (PROTONIX) EC tablet 40 mg, 40 mg, Oral, DAILY, Jose Pan MD, 40 mg at 08/11/24 0852 sennosides (SENOKOT) tablet 8.6 mg, 8.6 mg, Oral, DAILY, Jose Pan MD, 8.6 mg at 08/11/24 0853 acetaminophen (TYLENOL) tablet 650 mg, 650 mg, Oral, Q8HPRN, Criss Leyva DO aspirin chewable tablet 81 mg, 81 mg, Oral, DAILY, Estefani Dillon MD, 81 mg at 08/11/24 0852 atorvastatin (LIPITOR) tablet 80 mg, 80 mg, Oral, QHS, Estefani Dillon MD, 80 mg at 08/10/24 2136 busPIRone (BUSPAR) tablet 5 mg, 5 mg, Oral, BID, Estefani Dillon MD, 5 mg at 08/11/24 1328 gabapentin (NEURONTIN) capsule 100 mg, 100 mg, Oral, TID, Estefani Dillon MD, 100 mg at 08/11/24 1328 heparin (1,000 unit/mL, 10 mL vial), 3,000-5,000 Units, Slow IV Push, FOR REBOLUSING, Criss Leyva DO heparin 25,000 Units/250 mL (Premixed Bag) in 0.45 % NS, 0-2,050 Units/hr, IV Infusion, CONTINUOUS, Criss Leyva DO, Last Rate: 8 mL/hr at 08/11/24 0617, 800 Units/hr at 08/11/24 0617 HYDROcodone-acetaminophen (NORCO 5) tablet 1 tablet, 1 tablet, Oral, Q6HPRN, Criss Leyva DO, 1 tablet at 08/10/242135 lidocaine-prilocaine (EMLA) 2.5-2.5 % cream, , Topical, BID, Estefani Dillon MD methocarbamoL (ROBAXIN) tablet 500 mg, 500 mg, Oral, TIDPRN, Estefani Dillon MD, 500 mg at 08/10/242135 ondansetron (ZOFRAN (PF)) injection 4 mg, 4 mg, Slow IV Push, Q6HPRN, Criss Leyva DO, 4 mg at 08/09/241999 proCHLORperazine (COMPAZINE) injection 5 mg, 5 mg, Slow IV Push, Q6HPRN, Estefani Dillon MD, 5 mg at 08/09/24 2226 Physical Examination: Temp: [36.4 ?C (97.6 ?F)-36.9 ?C (98.5 ?F)] Heart Rate (monitor): [70-89] Pulse: [69-97] Resp: [13-24] BP: (80-126)/(47-100) MAP (mmHg): [60-109] Intake/Output Summary (Last 24 hours) at 08/11/2024 1449 Last data filed at 08/11/2024 1200 Gross per 24 hour Intake 1969.65 ml Output 601 ml Net 1368.65 ml Labs/Imaging/Pathology - Reviewed Echocardiography (07/14/24): Left Ventricle: Left ventricle is severely dilated. Dilated by LV volume index calculation. Normal wall thickness. Severely increased ventricular mass. There is eccentric hypertrophy. Severe global hypokinesis present. Severely reduced systolic function with a visually estimated EF of 5 - 10%. There is grade 2 diastolic dysfunction. Elevated left ventricular filling pressure. Cannot exclude small apical thrombus. Right Ventricle: Right ventricle is mildly dilated. Normal systolic function. TAPSE is 1.83 cm. TDI-derived tricuspid annular systolic velocity (TDI S') is 11.9 cm/s. There is a pacemaker lead in the right ventricle. Left Atrium: Left atrium is moderately dilated. Left atrium volume index is 45.3 mL/m2. Tricuspid Valve: Tricuspid valve structure is normal. Mild transvalvular regurgitation. Right ventricular systolic pressure is 40-45 mmHg. No stenosis. IVC/SVC: IVC diameter is less than or equal to 21 mm and decreases less than 50% during inspiration; therefore the estimated right atrial pressure is intermediate (~8 mmHg). Assessment/Plan: Bryan Parada is a 58 year old male admitted with: New onset Typical Atrial Flutter Chronic combined HFrEF s/p 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-D (5-10%, NICM) class IVC T2DM (A1c 5.9 07/2024) || HTN || HLD Obesity pAfib on Eliquis (CHADSVASC 6) CKD 3 CVA (cardioembolic 2021) Gout PRAVEEN on CPAP Presents as transfer from [facility] for aflutter, on Amio gtt, and currently in NSR. EKG on admission showed V paced rhythm with Atrial flutter. Discussed treatment strategies for Aflutter, and pt would like to proceed with ablation. 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 - Aflutter ablation tomorrow. - NPOpMN - Agree with AC, can hold heparin AM tomorrow AM prior to Afib ablation. - C/w Telemetry - Ensure K>4 and Mg>2. Thank you for your consult. Discussed case with Dr. Barriga. EP Cardiology will continue to follow at this time. Please reach out to us for any additional queries or concerns. Kumar Marquez MD Sheet Metal Mechanic, PGY-5 #[id number] LE HELPER Associated attestation - Akhil Barriga MD - 08/15/2024 7:40 AM BUNDLE HELPER Addendum Note from Cardiac Electrophysiology Attending: After discussion with burrer hand/resident, I examined this patient on the date note was written. I agree with fellow's note as written. The time spent was 75 minutes for patient care which includes: precharting by reviewing EKGs and prior blood work-up as well as monitor results, obtaining and reviewing her medical chart as well as prior encounters, performing a full comprehensive medical exam and evaluation, discussing a cardiac procedure, documenting clinical information onto this electronic medical chart and independently interpreting prior results with communicating these results to the patient. I appreciate the opportunity to participate in the care of this patient. Sincerely, Akhil Barriga MD Cardiac Electrophysiology CARDIOVASCULAR DISEASE [facility] 2024-08-10 08:36:28 Associated Order(s): CONSULT CARDIOLOGY [facility] Cardiology Consult PCP: Kim Jones Date of Service: 08/10/2024 CHIEF COMPLAINT/reason for consult: Atrial flutter History of Present Illness Bryan Parada is a 58 years old male with PMH DM, HTN, HLD, obesity, pAfib, HFrEF s/p 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-D and PRAVEEN. He has been followed by [facility] cardiology with extensive cardiac workup. He has been admitted multiple times with hypertensive urgency and chest pain. LHC in 07/2020 showed no significant CAD. He underwent 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-D. He was admitted to [facility] in 10/2021 for acute ischemic stroke deemed to be secondary to Afib. Eliquis was started. On May 28, 2022 he underwent right heart cath and successful placement of CardioMEMS heart failure monitor device in the left pulmonary artery. Right heart cath showed elevated filling pressures and pulmonary pressure. This time he presented to [facility] with chest pain and palpitations. He was found to have atrial flutter and amiodarone was started. No evidence of volume overload by exam and chest x-ray. PAST MEDICAL HISTORY Past Medical History: Diagnosis [...] N/A 02/19/2017 Surgeon: Fran Canchola MD; Location: [facility] OR Location ESOPHAGOGASTRODUODENOSCOPY N/A 07/20/2019 Surgeon: Maddi Ballesteros MD; Location: [facility] OR Location ESOPHAGOGASTRODUODENOSCOPY N/A 04/03/2021 Surgeon: Fran Trinh MD; Location: [facility] ([facility]) OR Location JOINT SURGERY Right 11/2016 Right knee PACEMAKERS INSERTION Family History Problem Relation Age of Onset CHF (congestive heart failure) Mother Depression Mother Hypertension Mother Diabetes Mother Diabetes Father Hypertension Father Heart Father Heart Sister ALLERGIES Allergies Allergen Reactions Imdur [Isosorbide Mononitrate] Other - See comments Severe hypotension, likely from severe LVH per Dr. Sanderson. MEDICATIONS No current facility-administered medications on file prior to encounter. Current Outpatient Medications on File Prior to Encounter Medication Sig Dispense Refill cephALEXin 500 mg capsule Take 1 capsule by mouth 4 (four) times daily for 10 days. 40 capsule 0 atorvastatin 80 mg tablet Take 1 tablet by mouth at bedtime. 90 tablet 1 furosemide 80 mg tablet Take 1 tablet by mouth every morning and evening. 120 tablet 1 lisinopriL 5 mg tablet Take 1 tablet by mouth in the morning. 90 tablet 1 metoprolol succinate XL 25 mg 24 hr tablet Take 1/2 (one-half) tablet by mouth in the morning. 90 tablet 0 apixaban 5 mg tablet Take 1 tablet by mouth in the morning and 1 tablet in the evening. Indications: atrial fibrillation 180 tablet 3 aspirin 81 mg chewable tablet Take 1 tablet by mouth in the morning. 90 tablet 3 busPIRone 5 mg tablet Take 1 tablet by mouth in the morning and 1 tablet in the evening. 180 tablet 3 empagliflozin (JARDIANCE) 10 mg tablet Take 1 tablet by mouth in the morning. 90 tablet 3 gabapentin 100 mg capsule Take 1 capsule by mouth in the morning and 1 capsule at noon and 1 capsule in the evening. 90 capsule 5 omeprazole 40 mg capsule Take 1 capsule by mouth in the morning. 90 capsule 3 spironolactone (ALDACTONE) 25 mg tablet Take 1 tablet by mouth in the morning. 90 tablet 2 lidocaine-prilocaine 2.5-2.5 % cream Apply to area(s) 2 (two) times daily. 30 g 1 methocarbamoL 500 mg tablet Take 1 tablet by mouth 3 (three) times daily as needed for Pain (scale 7-10) (Knee pain). 30 tablet 1 allopurinoL 300 mg tablet Take 1 tablet by mouth every morning. 90 tablet 3 blood sugar diagnostic strip Check blood sugar 2 times a day. E11.9. Brand per insurance. 1 Strip 6 Blood-Glucose Meter Kit Check sugars 2 times a day. Dx. Code E11.9 Brand per Insurance 1 Kit 0 Lancets Misc Check sugars 1 times a day. Dx Code E11.9. Brand per insurance. 100 Each 11 SOCIAL HISTORY Social History Socioeconomic History Marital status: Single Number of children: 2 Highest education level: High school graduate Occupational History Occupation: Disabled Comment: SSDI Tobacco Use Smoking status: Never Passive exposure: Past Smokeless tobacco: Never Vaping Use Vaping status: Never Used Substance and Sexual Activity Alcohol use: Not Currently Comment: 1 cup of whiskey but last dirnk in December Drug use: Never Sexual activity: Yes Partners: Male, Female control/protection: Condom Social History Narrative Lives in an apt in [place], [place] himself. Social Determinants of Health Financial Resource Strain: Medium Risk (04/13/2024) Overall Financial Resource Strain (CARDIA) Difficulty of Paying Living Expenses: Somewhat hard Food Insecurity: No Food Insecurity (08/01/2024) NCSS - Food Insecurity Worried About Running Out of Food in the Last Year: No Ran Out of Food in the Last Year: No Transportation Needs: No Transportation Needs (08/01/2024) NCSS - Transportation Lack of Transportation: No Physical Activity: Insufficiently Active (04/13/2024) Exercise Vital Sign Days of Exercise per Week: 3 days Minutes of Exercise per Session: 40 min Social Connections: Unknown (04/06/2024) Social Connection and Isolation Panel [NHANES] Frequency of Communication with Friends and Family: More than three times a week Marital Status: Never Housing Stability: Not At Risk (08/01/2024) NCSS - Housing/Utilities Has Housing: Yes Worried About Losing Housing: No Unable to Get Utilities: No REVIEW OF SYSTEMS (-)=Negative,(+)=Positive (-)=Negative,(+)=Positive At least 10 systems reviewed, negative except as mentioned in HPI PHYSICAL EXAMINATION Vitals: 08/10/24 0400 08/10/24 0600 08/10/24 0700 08/10/24 0800 BP: 120/81 115/72 (!) 126/99 (!) 131/107 Pulse: 70 76 70 71 Resp: 17 Temp: 36.6 ?C (97.9 ?F) 36.5 ?C (97.7 ?F) TempSrc: Temporal Artery Oral SpO2: 100% 98% 99% 93% Weight: 129.1 kg (284 lb 11.2 oz) Height: General: no apparent distress, obese [...] CBC BMP PT/INR WBC (10*3/?L) Date Value 08/10/2024 5.41 NA (mmol/L) Date Value 08/10/2024 138 No results found for: "PT" PLT (10*3/?L) Date Value 08/10/2024 223 K (mmol/L) Date Value 08/10/2024 4.0 INR (no units) Date Value 08/09/2024 1.1 HGB (g/dL) Date Value 08/10/2024 14.1 BUN (mg/dL) Date Value 08/10/2024 31 (H) HCT (%) Date Value 08/10/2024 46.0 CREATININE (mg/dL) Date Value 08/10/2024 2.18 (H) LIPID PROFILE GLUCOSE (mg/dL) Date Value 08/10/2024 111 (H) CHOL (mg/dL) Date Value 07/15/2024 171 TSH LDL CHOL (mg/dL) Date Value 07/15/2024 105 TSH (mIU/L) Date Value 08/10/2024 3.40 CARDIAC ENZYMES HDL (mg/dL) Date Value 07/15/2024 47 CK (U/L) Date Value 06/07/2022 280 (H) TRIG (mg/dL) Date Value 07/15/2024 97 LFTs CK-MB (ng/mL) Date Value 08/28/2021 1.52 AST(SGOT) (U/L) Date Value 08/09/2024 36 TROPONIN I (ng/mL) Date Value 08/09/2024 0.049 (H) ALT(SGPT) (U/L) Date Value 04/13/2019 26 ALTv (U/L) Date Value 08/09/2024 18 No results found for: "BNP" EKG--atrial flutter with ventricular paced rhythm Chest x-ray-no pulmonary congestion ASSESSMENT/PLAN Principal Problem: Palpitations Active Problems: Essential hypertension PRAVEEN (obstructive sleep apnea) Chronic combined systolic and diastolic CHF, NYHA class 2 Nonischemic cardiomyopathy PRAVEEN on CPAP Cardiac resynchronization therapy defibrillator (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-D) in place Dyslipidemia Noncompliance PAF (paroxysmal atrial fibrillation) History of cerebrovascular accident (CVA) with residual deficit Chest pain, unspecified type Troponin I above reference range Obesity (BMI 30-39.9) Atrial flutter Atrial flutter-this is a new diagnosis. Currently still in atrial flutter despite intravenous amiodarone. Given LVEF 5 to 10%, rhythm control is preferred. He is quite symptomatic. Recommend transferring to [facility] for EP consultation. Due to operating room remodeling, [facility] cannot sterilize transesophageal echo probe and cannot offer cardioversion service at this point. Continue IV heparin for anticoagulation. Chronic HFrEF--no evidence of acute heart failure by exam and chest x-ray. Continue spironolactone. Once renal function improves, restart home dose Lasix. Continue metoprolol, lisinopril and spironolactone. Recommend to start Jardiance. Low salt diet. I/O. Daily weight. Discussed the low-salt diet. HTN--his blood pressure is currently better controlled. Continue Coreg, lisinopril and spironolactone. Adjust as needed. Previous secondary HTN workup negative. PAfib--the patient has been on Eliquis and metoprolol. PRAVEEN--continue C-PAP. Morbid obesity--discussed diet and weight loss. S/p 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-D. Thank you for allowing us to participate in the care of your patient. Please feel free to contact us for any questions or if we can be of further assistance. Cornelia Sanderson MD, FACC, NESTOR Die Cutter Division of Cardiovascular Medicine [facility] 2024-07-21 09:45:00 Associated Order(s): CONSULT ADULT PHYSICAL THERAPY Patient agreeable to working with physical therapy. Patient sitting upright in bedside chair and Heels offloaded? No: not required as patient is alert and oriented, as well as exhibits sufficient LE strength and ability to move/reposition LEs/heels throughout the day, Visitor present. Recommend nursing staff utilize no AD - Independent to safely assist patient with mobility out of the bed or chair. PHYSICAL THERAPY EVALUATION Consult received, chart reviewed and evaluation complete this date. Patient is referred to PT for evaluation and treatment. Patient is a 58 year old male who presents to hospital for Congestive heart failure, unspecified HF chronicity, unspecified heart failure type [I50.9] . S/P Right Heart Cath 07/19/24 Discharge Recommendations: Therapy Needs and Potential: Patient without any skilled PT needs at this time. Challenges to Home Transition: decreased caregiver availability Equipment recommendations: no device Current Functional Status and/or Treatment: AM-PAC 6 Clicks (Raw Score 0=Dependent, 24=Independent; Low function Raw Score 0= Dependent, 32=Independent): Raw Score - Basic Mobility : 24 T-Scale Score - Basic Mobility : 57.68 Bed Mobility: Sit to supine: Independent Sitting balance Excellent Assessed function, patient endorses that he is Independent Dizziness No Transfers: sit-stand: Independent Stand to sit: Independent using NO AD Stand pivot transfer: Independent Static/dynamic standing balance: Good Verbal cueing provided for correct hand placement and correct use of AD Assessed sit to stand function, patient able to safely stand from different surfaces. Dizziness No Ambulation: Assisted patient with ambulation as follows: 2 MWT 200 feet using No AD and Independent. Patient presenting with Step-to gait pattern. Instructed patient in directional changes and head movements in all planes during gait trial resulting in no instability and no LOB. Patient denies any chest pain or shortness of breath. Dizziness No Therapeutic exercise: patient educated in Compensatory techniques/adaptive strategies, Deep breathing, Energy conservation, Fall prevention, General strengthening, Positioning, Relaxation/breathing techniques, and Safety awareness., instructed patient in the following: ankle pumps, hip abduction/adduction, short arc quads, seated marching, and patient/caregiver instructed to perform HEP 1-2 times per day, 10 repetitions. Functional Outcome Measures: (Values within the past 12 hours) Tinetti Gait Score- # / 12 Initiation of gait: No hesitancy Step length: On both sides, swing foot passes stance foot Foot clearance: Both feet completely clear floor Step Symmetry: Step lengths equal Step continuity: Steps appear continuous Path: Straight without AD Trunk: No sway, no flexion, no use of arms, no use of AD Walking: Heels almost touching Tinetti Gait Score: 12 Tinetti Gait Score Interpretation: >= 7 - Low risk for falls TINETTI BALANCE SCORE- # / 16 Sitting balance: Steady, safe Arises: Able without using arms Attempts to Rise: Able to rise, 1 attempt Immediate standing balance (first 5 sec): Steady without walker or other support Standing Balance: Narrow stance without support Nudged 3 times *: Steady Eyes closed*: Steady Turning 360 degrees: Either discontinuous or unsteady Sitting down: Safe smooth Tinetti Balance Score: 15 Tinetti Balance Interpretation: >= 9 - Low risk for falls After session, patient seated edge of bed and Heels offloaded? No: not required as patient is alert and oriented, as well as exhibits sufficient LE strength and ability to move/reposition LEs/heels throughout the day, No visitors present. Call button provided. Communicated with Jitendra. PLAN OF CARE: PT signs off. Patient is at baseline function. Acute Physical Therapy is not warranted at this time. See below for complete details. Admit Date: 07/13/2024 Hospital Diagnosis:Congestive heart failure, unspecified HF chronicity, unspecified heart failure type [I50.9] PT Diagnosis: Weakness, Malaise/fatigue, and Abnormality of gait and balance Weight Bearing Precaution: WBAT General Precautions: PPE used:Gloves, General, Fall, Telemetry Bracing/Cast present or required:N/A PMH: Past Medical History: Diagnosis Date ACC/AHA [...] unspecified hyperlipidemia Stroke Uncontrolled hypertension 05/03/2015 PSH: Past Surgical History: Procedure Laterality Date COLONOSCOPY N/A 02/19/2017 Surgeon: Fran Canchola MD; Location: [facility] OR [facility] ESOPHAGOGASTRODUODENOSCOPY N/A 07/20/2019 Surgeon: Maddi Ballesteros MD; Location: [facility] OR [facility] ESOPHAGOGASTRODUODENOSCOPY N/A 04/03/2021 Surgeon: Fran Trinh MD; Location: Endoscopy () OR Location JOINT SURGERY Right 11/2016 Right knee PACEMAKERS INSERTION PRIOR LIVING SITUATION: lives alone and in a apartment, 2 steps to enter, no rails. DME: [employer] Prior level of Mobility: community ambulation, house hold ambulation, no AD Suspected ischemic or hemorraghic stroke:No Subjective: Endorses no pain and feeling better Patient/Family Goals: "I want to go home". Patient/Family verbalizes understanding of condition: Yes PAIN: denies pain before and after session COMMUNICATION Primary Language: [place]ander Able to Verbalize needs: Yes Vision:good; no issues reported Hearing:good; no issues reported ORIENTATION/COGNITION: Oriented to: person, place, date/time, and situation Awake: Yes Alert: Yes Dizzy: No Follows Commands: Yes 1-Step Yes Multi-Step Yes Inconsistent: No NEUROLOGICAL Light Touch: within functional limits bilateral LE Heel to vides: WNL Tone: WNL BALANCE: Sitting: Static: Excellent Dynamic: Good Standing: Static: Good Dynamic: Fair+ RANGE OF MOTION: within functional limits bilateral LE STRENGTH: 5/5 (Normal), bilateral LE ENDURANCE: Fair+, Room air SKIN INTEGRITY: not intact, please see nurses notes for details. PROBLEM LIST: Decline in gait, Decline in transfers, Decreased strength, Decreased endurance, Decreased balance, and Safety awareness deficits ASSESSMENT: Patient is a 58 year old male seen secondary to the above listed diagnosis. No further inpatient PT needs identified at this time.PT signs off. Patient is at baseline function. Acute Physical Therapy is not warranted at this time. Rehabilitation Potential: good Goals: The following goals are to maximize independence and safety with functional mobility to eventually return to prior living situation and prior functional status. Defer as no PT needs.PT signs off. Patient is at baseline function. Acute Physical Therapy is not warranted at this time. Treatment Plan: Evaluation only, Discharge from PT , Gait training, Therapeutic exercise, Transfer training, Balance training, Bed mobility training, Equipment needs assessment, Safety education, patient/caregiver education, Pain management, and Neuromuscular Re-Education PATIENT EDUCATION: Patient provided with preferred teaching of verbal information and demonstration on role of PT, plan of care, DC planning. Shows readiness to learn. Verbal instruction and Demonstration teaching provided. Individual is able to read and verbalizes understanding of teaching provided and accurately returns demonstration of skill. Total Time Tx Codes in Minutes: 9 min Total Treatment Time in Minutes: 20 min Kamari Burciaga PT, DPT [facility] Physical Therapy Rehabilitation Services A physical therapy evaluation of moderate complexity was completed based on meeting the criteria below: A history of present problem with at least 1-2 personal factors (includes environmental factors) and/or comorbidities that impact the plan of care An examination of body systems using standardized tests and measures in addressing at least 3 or more elements from any of the following: body structures and functions, activity limitations and/or participation restrictions An evolving clinical presentation with changing characteristics LE HELPER Kamari Burciaga PT [facility] 2024-07-04 07:48:34 Associated Order(s): CONSULT CARDIOLOGY [facility] Cardiology Consult Note Patient: Bryan Parada Date of : 1965 Primary Care Physician: Brooks Barker History of Present Illness: Bryan Parada is a 58 year old male presented to ER for evaluation of chest pain. History from the patient himself. Pertinent cardiac history reviewed from the chart. History from the patient. 07/04/2024 Presented to the ED for chest pain. Per patient he was in his normal state of health developed sharp chest pain approximately 7 PM yesterday he has had it intermittently since then and his roommate encouraged him to go to the ER for evaluation. He states he has longstanding shortness of breath with ambulation but this is not changed over the past few days. DELGADO NYHA Class II He does state compliance with medication states he has [facility] home health coming to assist him with his meds. In the emergency department he was noted to be hypertensive. States compliance with all his home meds but can't recollect the name of the meds. No med list or pill bottles with him to review. 06/01/2024 History of Present Illness The patient is a 58-year-old male who presents to the office for follow-up after a recent hospital discharge. He was last seen in the office on 04/25/2024, after which he was admitted to the hospital from 05/15/2024 until 05/17/2024. The discharge summary dated 05/17/2024 has been reviewed. He was advised to continue spironolactone 25 mg daily along with Jardiance 10 mg daily upon discharge. He was seen by his primary care physician's office on 05/20/2024, and the after-visit summary has been reviewed. Currently, he is supposed to be on Lasix 40 mg TID, spironolactone 25 mg daily, and Jardiance 10 mg daily. As usual, he did not bring the medication list or medication bottles for examination today. He reports feeling well overall with no new cardiac symptoms. His weight is stable. 05/15/2024 Presented to ER with chest pain and shortness of breath. Patient's blood pressure was significantly elevated in the ER at 170/120. Patient was given IV diuretics and started on a Cardene drip. Patient will be admitted to the ICU on Cardene drip for strict blood pressure control. Patient is long-term prognosis is poor especially with his poor compliance with his treatment regimen. DELGADO NYHA class II-III noted stable. No exertional palpitations or palpitations at rest. No syncopal attacks. 04/25/2024 The patient is a 58-year-old male who presented to the office for follow-up on heart failure with reduced ejection fraction. He was recently admitted to the hospital on 04/06/2024. Prior to this admission, he was hospitalized in 06/2022 and has been residing in a retirement facility since then. His recent hospitalization in 04/2024 was his first readmission. During his inpatient stay, he was evaluated by the cardiology team and continued on his previous heart failure medications. He was also given IV Lasix 40 mg twice daily and spironolactone 25 mg daily. His discharge medications were reviewed, but he did not bring his medication list or bottles to the appointment. He reports that he is currently living in an apartment with friends and is regularly taking his medications, although he does not remember their names. Hospital admission dated 06/2022. Previous cardiac history: Admitted to hospital from 05/05/2022 until 05/06/2022 for atypical chest pain/worsening shortness of breath. ER visit noted 05/09/2022 and 05/11/2022. Admitted in the main campus 05/11/2022 until 05/22/2022. Noted to have acute on chronic systolic and diastolic heart failure. ER visit dated noted. ER visit dated 05/22/2022 noted. Underwent CardioMEMS device placement dated 05/28/2022. Right heart cath done at that time showed severe elevated right/left-sided filling pressures. Mixed pulm hypertension noted. Readmitted back in the hospital 06/01/2022 until 06/03/2022 for atypical chest pain/shortness of breath. Admission from 06/05/2022 on 06/09/2022 reviewed. Since then patient been discharged to retirement. Since then no readmission noted in the hospital. Admitted 04/23/2022 for atypical chest pain. Noted to have hypertensive urgency at that time. Admitted 04/01/2022 for acute diverticulitis. GI bleeding noted. Presented to ER 03.17.2022 for atypical chest pain Seen in [facility] 03.06.2022 for atypical chest pain/mild elevated troponins. Presented to ER 02.02.2022 for chest pain/DELGADO. Work-up was unremarkable. Elevated troponins noted chronically elevated/stable. Subsequent to which was admitted back 02/15/2022 for chest pain/elevated hypertension. Due to lack of beds in [facility], patient was transferred to [facility]. Was admitted to the heart failure team. DC summary dated reviewed. Amlodipine 5 mg daily was started but upon medication review today 02/26/2022 he has not picked up the prior medicine yet. 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 Bumex was increased from 3 mg twice daily to 4 mg in the morning/3 mg in the night. Home medication was reviewed today 02/26/2022. Patient's been compliant with taking carvedilol 25 twice daily along with lisinopril/Lipitor/spirono lactone as listed below in the assessment and plan. Last home medications was reviewed dated 12/07/2021 in the office visit by myself apparently. Eliquis/Lipitor was not available for review however he reports taking it. Rest of the medications was verified and updated in the OCT. Patient reports currently [facility] Home health nurse coming to his home. Presented to the ER 01/21/2022 for evaluation of atypical chest pain/not feeling well. Seen by [facility] heart failure clinic 12/27/2021. Dose of spironolactone was increased to 50 mg daily. Admission noted 01/01/2022 for atypical chest pain. Admitted 10/24/2021 to 10/26/2021: elevated troponin. Admitted and DC'd on .: Presented with chest pain with elevated blood pressure. Elevated BNP noted. Admitted 10/06/2021 and DC'd on 10/08/2021 for elevated troponin/heart failure. Admitted 10/02/2021 and DC'd on 10/03/2021 from [facility]. Noted to have acute right-sided MCA territory infarct. Left-sided weakness. Seen by neurology in [facility]. Started on Eliquis 5 mg twice daily. Admitted 09/28/2021 for mild elevated troponin. DC'd the next day. Presented with complaints of chest pain. States that he got home and started having chest pain and came to the emergency room. Reports blood pressure was extremely elevated in spite of taking his medication. As usual he did not bring any of his medications. Since her discharge from [facility] 08/27/2021, patient was readmitted back in the hospital 08/28/2021. Transferred to [facility]. Seen by heart failure team at that visit. Recommended right heart cath followed by CardioMEMS device due to recurrent hospital admission. Underwent right heart cath . No CardioMEMS device implanted. Recommended to increase Bumex from 2 mg twice daily to 3 mg twice daily. Heart failure note dated 09/01/2021 reviewed. Advised to continue Coreg 50 twice daily, hydralazine 50 every 8 hours. Recommended to increase Bumex to 3 mg twice daily. Patient was discharged on Bumex 2 mg twice daily. Patient underwent right heart cath 09/20/2021. Mean PA pressure was noted to be 38. Wedge was 31. Cardiac output 5.1 with a cardiac index of 1.9.. TPG 8 7. Patient was advised to increase the Bumex to 3 mg p.o. twice daily. 08/13/2021 noted to have COVID infection along with chest pain. 08/04/2021 admitted for chest pain Admission 07/24/2021 for atypical chest pain. Admission 07/01/2021: For atypical chest pain. Admission 06/12/2021 for atypical chest pain. Admitted 06.08.2021 for atypical chest pain. Admitted 05/30/2021 for chest pain. Admitted 05/22/2021 to 05/24/2021. Again admitted for heart failure. Diuresis was done. IV Lasix was changed to Bumex. Admitted 05/17/2021 to 05/19/2021 for for chest pain evaluation. Noted to have acute on chronic combined heart failure. Started on IV Lasix followed by you Lasix were changed. And then discharged. Patient was admitted 05/07/2021 to 05/10/2021: For atypical chest pain/heart failure. After discussion with heart failure team, milrinone drip was discontinued. PICC line discontinued. Admitted 03/12/2021 and DC'd on 04/04/2021. Patient was admitted for heart failure symptoms. Was diuresis. Supposed to be discharged on 03/19/2021. But disease was held. Started on milrinone. Noted to hypotension. Subsequent cardiogenic shock in the setting the context of milrinone assisted diuresis. Started on dopamine in the Resort [employer]. Slowly and gradually dopamine was weaned off. DC'd milrinone infusion. DC summary medications reviewed. On Isordil 40 3 times daily, Toprol-XL 50 daily, Lipitor 40, Lasix 60 mg twice daily, hydralazine 50 every 8, KCl 20 daily along with aspirin/Plavix/Eliquis., Aldactone 25 daily. DC'd on lisinopril DC amlodipine DC to clonidine, DC'd carvedilol. Since discharge, patient was seen by heart failure team 04/09/2021 and again on 04/23/2021. Admitted 02/19/2021 and 02/24/2021: For atypical chest pain/hypertension. Admitted in [facility] 01/2021. He reports that he was admitted for CVA. Reports having receiving TPA. And then admitted in the hospital closely for few days. [facility] records reviewed. Admitted on 01/03/2021. Patient was noted to have acute CVA with left-sided weakness along with\\hypertension. Acute on chronic kidney injury with chronic systolic heart failure EF less than 25% s/p ICD. CKD stage II. Patient underwent s/p TPA. CT showed no acute changes. MRI was not done because of pacemaker listed in the summary. 01/10/2021 code stroke was called because of worsening weakness on the right side. Patient was seen by neurology. CT the did not show any acute new changes. ER visit 12/27/2020 reviewed. Patient was admitted for elevated blood pressure. Sent to the ER from home health due to elevated blood pressure. Medication was adjusted in the ER with recent blood pressure not better hence he was discharged from the hospital. Patient report that he presented to the [facility] for chest discomfort . Discharge summary dated from 12/05/2020 from [facility] was reviewed. Patient was admitted for evaluation of CVA. Underwent imaging studies which did not relieve any acute lesion. Looks like patient was seen by the telemetry neurologist team who suggested patient had a TIA. Cardiology team evaluated the patient. NM stress test was done which was positive for reversible ischemia. Underwent coronary angiogram which showed no obstructive CAD. Presents with TIA with left-sided weakness. CT angio neck was done which was reported to be nondiagnostic. CT scan head did not relieve any acute lesion. Patient was recommended to start Plavix in addition to Eliquis and aspirin. ER visit dated 11/20/2020 noted. He was not admitted during that ER visit because of lack of beds and is troponins x2 were unremarkable. With IV hydralazine blood pressure came down. Hence he was discharged home with plans for outpatient follow-up with cardiology. Feeling well on the whole. No new cardiac symptoms noted. Had multiple ER visits/admission for atypical chest pain/hypertension uncontrolled. He was recently admitted on 10/24/2020 and discharged on 10/25/2020 noted to have left upper respiratory weakness. Patient was sent to [facility]. Was seen by neurology. Per the discharge summary patient was started on Eliquis 5 mg twice daily. Primary diagnosis of acute CVA noted in the discharge summary. Neurology consult note during that admission was reviewed. Neurology also recommended starting Eliquis 5 mg twice daily. 10/12/2020: Admitted for elevated blood pressure/atypical chest pain. 10/02/2020 again admitted for atypical chest pain/hypertensive emergency 09/22/2020 admitted in [facility] for hypertensive urgency again 07/2020, he was admitted in [facility] between 07/30/2020 and discharged on 08/09/2020. During that admission he was noted to have atypical chest pain/heart failure admission. Patient was noted to have new onset heart failure reduced ejection fraction. Coronary angiogram did not show any obstructive CAD. Underwent EP evaluation followed by BiV ICD placement. Subsequent to which he was readmitted back again 08/13/2020 to 08/22/2020 for hypertension emergency. Norvasc was stopped and changed to Procardia XL in the past for better BP control. Catapres patch was changed to PO Clonidine since the patch didn't stick on him properly due to excessive sweating. Reports that he had seen nephrology Dr Ag and they had told him that everything is within acceptable limits. Previous Cardiac Studies: EKG 04/29/2022 reviewed shows V paced rhythm. Chest x-ray 04/29/2022 reviewed shows heart failure pattern. Chest x-ray 03/17/2022 reviewed shows heart failure pattern. EKG 03/05/2022 shows V paced rhythm. Echocardiogram dated 02/17/2022 reviewed shows severely reduced LV systolic function at 10 to 15% noted. RV mildly dilated. No significant valve valve is noted. EKG 01/21/2022 shows V paced rhythm. EKG 2/19/22 shows A sensed V paced rhythm. Chest x-ray 02/02/2022 shows heart failure pattern. CXR 01.21.2022 IMPRESSION Mild pulmonary vascular congestion without overt edema. Stable cardiomegaly. EKG 08/22/2021 shows atrial sensed V paced rhythm noted. No significant change compared to the previous EKG. Chest x-ray 08/22/2021 FINDINGS/IMPRESSION: Left chest wall bipolar leads terminating in the right atrium, right ventricle and coronary sinus. The intracardiac portions of the leads are not clearly seen due to technique. Prominent interstitial markings and perihilar haziness represents mild to moderate interstitial pulmonary edema. No sizable pleural effusion is seen. The left lung base is not completely imaged. No pneumothorax. Stable severe cardiomegaly and dilated pulmonary arteries. No acute osseous abnormalities. EKG 08/04/2021 reviewed shows atrial sensed V paced rhythm noted. No significant change compared to the previous EKG. Chest x-ray dated 08/04/2020 reviewed shows no evidence of any heart failure pattern. Prominent pulmonary arteries noted. ECG 07.14.2021: V paced rhythm. CXR 07.14.2021 IMPRESSION Limited study. Enlarged cardiomediastinal silhouette. No definite acute cardiopulmonary process. ECG 06.07.2021 A sensed V paced rhythm. CXR 06.08.2021 IMPRESSION Cardiomegaly with suspected small left-sided pleural effusion and prominent pulmonary vascular markings, may represent developing interstitial pulmonary edema. EKG 05/30/2021 A sensed V paced rhythm. CXR 05/30/2021 IMPRESSION 1. Mild cardiomegaly with no acute cardiopulmonary abnormalities Identified. CT head 05/30/2021 IMPRESSION No acute intracranial hemorrhage or mass effect. EKG 05/07/2021 reviewed shows BiV paced rhythm. CXR 05/07/2021 IMPRESSION Enlarged cardiac silhouette suggesting cardiomegaly and/or pericardial effusion. Central interstitial and alveolar opacities suggesting mild edema and/or pneumonitis. Persistent blunting of the left costophrenic sulcus suggesting small layering left effusion Echo 03.12.2021 nterpretation Summary A two-dimensional transthoracic echocardiogram with M-mode and Doppler was performed. The study was technically adequate. Compared to prior study, changes are noted. Contrast injection was performed. The left ventricular size is normal. There is severe concentric left ventricular hypertrophy. Left ventricular systolic function is severely reduced. Ejection Fraction = 10-15%. Left ventricular filling presure is elevated. The right ventricular systolic function is mildly reduced. Right ventricular systolic pressure is 25-30 mmHg. Trace pericardial effusion. Echo 08/2020 Interpretation Summary A two-dimensional transthoracic echocardiogram with M-mode and Doppler was performed. Contrast injection was performed. Compared to prior study, changes are noted. Ejection Fraction = 20-25%. Estimated RA pressure is 0-5 mmHg. Right ventricular systolic pressure is normal. Therer is a trivial pericardial effusion. Cath 07/2020: Nonobs ECG 07/2020 Sinus tachycardia with 1st degree A-V block Right atrial abnormality Left axis deviation Voltage criteria for left ventricular hypertrophy Abnormal ECG ECG 05/15/2020 ST with narrow QRS complex. Nonspecific ST changes. PVC noted. ECG 04/30/2020 Sinus rhythm with 1st degree A-V block with occasional Premature ventricular beats and Fusion complexes Biatrial enlargement Left axis deviation Left ventricular hypertrophy with QRS widening and repolarization abnormality Prolonged QT Abnormal ECG Echo 03/2020 A complete two-dimensional transthoracic echocardiogram was performed (2D, M-mode, Doppler and color flow Doppler). The study was technically difficult. Compared to prior study, changes are noted. There is severe global hypokinesis of the left ventricle. Ejection Fraction = 20-25%. Left ventricular systolic function is severely reduced. Diastolic dysfunction. There is severe concentric left ventricular hypertrophy. Insufficient Tricuspid regurgitation jet to estimate RVSP. Echo 08/2019 Interpretation Summary A complete two-dimensional transthoracic echocardiogram was performed (2D, M-mode, Doppler and color flow Doppler). The study was technically difficult. Compared to prior study, changes are noted. There is severe concentric left ventricular hypertrophy. Ejection Fraction = 40-45%. Diastolic dysfunction. Left ventricular filling presure is elevated. There is mild to moderate global hypokinesis of the left ventricle. Estimated RA pressure is 0-5 mmHg. ECG 01/2019 Sinus tachycardia Left axis deviation Incomplete right bundle branch block Inferior infarct (cited on or before 21-SEP-2017) Abnormal ECG When compared with ECG of 20-JAN-2019 08:53, No significant change has occurred ECG 10/2019 Sinus rhythm with 1st degree A-V block with Premature atrial beats Biatrial enlargement Pulmonary disease pattern left anterior fascicular block Left ventricular hypertrophy with QRS widening and repolarization abnormality Cannot exclude Inferior infarct (cited on or before 27-SEP-2019) Abnormal ECG Echo 07/2018 Interpretation Summary A complete two-dimensional transthoracic echocardiogram was performed (2D, M-mode, Doppler and color flow Doppler). The study was technically difficult. Compared to prior study, there is no significant change. There is severe concentric left ventricular hypertrophy. The overall left ventricular function is normal. The left atrium is mildly dilated. Insufficient Tricuspid regurgitation jet to estimate RVSP. Holter 04/2018 underlying rhythm is sinus occasional PVC's second degree AV block Mobitz type 2 with one dropped beat Abnormal holter Echo 03/2018 Interpretation Summary A complete two-dimensional transthoracic echocardiogram was performed (2D, M-mode, Doppler and color flow Doppler). The study was technically difficult. LVEF varies with RR interval due to Afib. LVEF 40-55%. Mild anteroseptal hypokinesis. Estimated RA pressure is 0-5 mmHg. Right ventricular systolic pressure is normal. Echo 08/2017 Interpretation Summary A complete two-dimensional transthoracic echocardiogram was performed (2D, M-mode, Doppler and color flow Doppler). The study was technically difficult. LVEF appears moderately reduced. Compared to study on 07/14/2016, LVEF has decreased. Compared to study 08/25/2017, LVEF appears similar. Echo 07/2016 Interpretation Summary A complete two-dimensional transthoracic echocardiogram was performed (2D, M-mode, Doppler and color flow Doppler). The study was technically limited. The left ventricular size is normal. There is severe concentric left ventricular hypertrophy. Ejection Fraction = 55-60%. Regional wall motion abnormalities cannot be excluded due to limited visualization. Right ventricular systolic pressure is normal. RA pressure 0-5 mmHg. December 2015 echocardiogram Interpretation Summary A complete two-dimensional transthoracic echocardiogram was performed (2D, M-mode, Doppler and color flow Doppler). The study was technically limited. The left ventricular size is normal. There is moderate concentric left ventricular hypertrophy. Ejection Fraction = 45-50%. Regional wall motion abnormalities cannot be excluded due to limited visualization. Right ventricular systolic pressure is elevated at 30-35 mmHg. RA pressure 0-5 mmHg. 06.21.2015 TTE A complete two-dimensional transthoracic echocardiogram was performed (2D, M-mode, Doppler and color flow Doppler). The study was technically limited. There is no comparison study available. Mild LV dilatation with mild concentric LVH. Mild to moderately reduced LV systolic function. Diastolic function is restrictive with elevated filling pressure. Biatrial atrial enlargement. No hemodynamic significant valve pathology noted. NM Stress test 08.23.2015 IMPRESSION: 1. The patient's electrocardiogram is nonischemic. 2. The patient's clinical response is asymptomatic for angina. 3. Overall left ventricular systolic function is severely reduced and with regional wall motion abnormalities (as noted above). The left ventricular ejection fraction is calculated to be 30 %. 4. There is no evidence of transient ischemic dilation (TID) of the left ventricle. 5. SPECT images demonstrate small area, mild degree reversible ischemia noted in the apical anterior wall segments. 6. Myocardial perfusion imaging is overall abnormal. Cardiac Cath 08.31.2015 LEFT CORONARY ARTERY: Left Main Artery: Patent LAD: Patent, D1 large patent Ramus: Large patent Circumflex: Patent, Om1 large patent, Om2 patent RIGHT CORONARY ARTERY: DOMINANCE: Right Dominant RCA: Large, dominant, patent LV FINDINGS: LV Normal EDP : 15 mmHg Impression: nonobstructive CAD CT scan Abdomen 10/2015 Small nodular density in the right adrenal gland probably an incidental adenoma, however please correlate with metanephrine levels. PAST MEDICAL HISTORY Past Medical History: Diagnosis [...] N/A 02/19/2017 Surgeon: Fran Canchola MD; Location: [facility] OR [facility] ESOPHAGOGASTRODUODENOSCOPY N/A 07/20/2019 Surgeon: Maddi Ballesteros MD; Location: [facility] OR [facility] ESOPHAGOGASTRODUODENOSCOPY N/A 04/03/2021 Surgeon: Fran Trinh MD; Location: Endoscopy ([facility]) OR Location JOINT SURGERY Right 11/2016 Right knee PACEMAKERS INSERTION Family History Problem Relation Age of Onset CHF (congestive heart failure) Mother Depression Mother Hypertension Mother Diabetes Mother Diabetes Father Hypertension Father SOCIAL HISTORY Social History Socioeconomic History Marital status: Single Number of children: 2 Highest education level: High school graduate Occupational History Occupation: Disabled Comment: SSDI Tobacco Use Smoking status: Never Passive exposure: Past Smokeless tobacco: Never Vaping Use Vaping status: Never Used Substance and Sexual Activity Alcohol use: Not Currently Comment: 1 cup of whiskey but last dirnk in December Drug use: Never Sexual activity: Yes Partners: Male, Female control/protection: Condom Social History Narrative Lives in an apt in [place], [place] himself. Social Determinants of Health Financial Resource Strain: Medium Risk (04/13/2024) Overall Financial Resource Strain (CARDIA) Difficulty of Paying Living Expenses: Somewhat hard Food Insecurity: No Food Insecurity (05/17/2024) NCSS - Food Insecurity Worried About Running Out of Food in the Last Year: No Ran Out of Food in the Last Year: No Transportation Needs: No Transportation Needs (05/17/2024) NCSS - Transportation Lack of Transportation: No Physical Activity: Insufficiently Active (04/13/2024) Exercise Vital Sign Days of Exercise per Week: 3 days Minutes of Exercise per Session: 40 min Social Connections: Unknown (04/06/2024) Social Connection and Isolation Panel [NHANES] Frequency of Communication with Friends and Family: More than three times a week Marital Status: Never Housing Stability: Not At Risk (05/17/2024) NCSS - Housing/Utilities Has Housing: Yes Worried About Losing Housing: No Unable to Get Utilities: No ALLERGIES Allergies Allergen Reactions Imdur [Isosorbide Mononitrate] Other - See comments Severe hypotension, likely from severe LVH per Dr. Sanderson. MEDICATIONS Current Discharge Medication List STOP taking these medications apixaban 5 mg tablet Comments: Reason for Stopping: atorvastatin 40 mg tablet Comments: Reason for Stopping: furosemide 40 mg tablet Comments: Reason for Stopping: aspirin 81 mg chewable tablet Comments: Reason for Stopping: busPIRone 5 mg tablet Comments: Reason for Stopping: carvediloL 25 mg tablet Comments: Reason for Stopping: empagliflozin (JARDIANCE) 10 mg tablet Comments: Reason for Stopping: gabapentin 100 mg capsule Comments: Reason for Stopping: omeprazole 40 mg capsule Comments: Reason for Stopping: spironolactone (ALDACTONE) 25 mg tablet Comments: Reason for Stopping: KETOCONAZOLE 2 % cream Comments: Reason for Stopping: ammonium lactate 12 % cream Comments: Reason for Stopping: lidocaine-prilocaine 2.5-2.5 % cream Comments: Reason for Stopping: methocarbamoL 500 mg tablet Comments: Reason for Stopping: allopurinoL 300 mg tablet Comments: Reason for Stopping: blood sugar diagnostic strip Comments: Reason for Stopping: Blood-Glucose Meter Kit Comments: Reason for Stopping: Lancets Misc Comments: Reason for Stopping: Current Facility-Administered Medications: acetaminophen (TYLENOL) tablet 650 mg, 650 mg, Oral, Q6HPRN, Bj Weiss MD aspirin chewable tablet 81 mg, 81 mg, Oral, DAILY, Bj Weiss MD atorvastatin (LIPITOR) tablet 40 mg, 40 mg, Oral, QHS, Bj Weiss MD, 40 mg at 07/03/242125 busPIRone (BUSPAR) tablet 5 mg, 5 mg, Oral, BID, Bj Weiss MD, 5 mg at 07/03/241943 carvediloL (COREG) tablet 25 mg, 25 mg, Oral, BID MEALS, Bj Weiss MD, 25 mg at 07/03/241943 dextrose 50 % in water (D50W) injection 25 mL, 25 mL, Slow IV Push, PRN, Bj Weiss MD furosemide (LASIX) tablet 40 mg, 40 mg, Oral, TID, Criss Leyva DO gabapentin (NEURONTIN) capsule 100 mg, 100 mg, Oral, TID, Bj Weiss MD, 100 mg at 07/03/241943 glucagon HCL injection 1 mg, 1 mg, Intramuscular, PRN, Bj Weiss MD heparin (1,000 unit/mL, 10 mL vial) for Rebolusing, 3,000-5,000 Units, Slow IV Push, FOR REBOLUSING, Michelle Miranda MD heparin (porcine) injection 5,000 Units, 5,000 Units, Subcutaneous, Q8H, Criss Leyva DO, 5,000 Units at 07/04/24 0555 HYDROcodone-acetaminophen (NORCO 5) tablet 1 tablet, 1 tablet, Oral, Q6HPRN, Bj Weiss MD morphine (2 mg/mL) injection 2 mg, 2 mg, Slow IV Push, Q4HPRN, Bj Weiss MD ondansetron (ZOFRAN (PF)) injection 4 mg, 4 mg, Slow IV Push, Q6HPRN, Bj Weiss MD pantoprazole (PROTONIX) EC tablet 40 mg, 40 mg, Oral, DAILY, Bj Weiss MD Sliding Scale Insulin - Lispro (HumaLOG), , Subcutaneous, TID MEALS+HS, Bj Weiss MD spironolactone (ALDACTONE) tablet 25 mg, 25 mg, Oral, DAILY, Criss Leyva DO REVIEW OF SYSTEMS: Comprehensive 10-system review was conducted and were negative except for what's noted in the HPI. The following systems were reviewed: Constitutional, cardiovascular, respiratory, gastrointestinal, genitourinary, musculoskeletal, neurologic, psychiatric, endocrinological, and hematological. PHYSICAL EXAMINATION: Vitals: 07/03/24 1843 07/03/24 2352 07/04/24 0334 07/04/24 0726 BP: 138/90 106/71 111/72 (!) 140/96 Pulse: 76 72 69 81 Resp: 20 18 18 18 Temp: 36.1 ?C (97 ?F) 36.3 ?C (97.4 ?F) 36.4 ?C (97.5 ?F) 36.2 ?C (97.1 ?F) TempSrc: SpO2: 94% 96% 95% 98% Weight: 138.5 kg (305 lb 4.8 oz) 137.5 kg (303 lb 1.6 oz) Height: LABS - Reviewed pertinent labs as below: CBC WBC (10*3/?L) Date Value 07/03/2024 5.62 RBC (10*6/?L) Date Value 07/03/2024 5.39 PLT (10*3/?L) Date Value 07/03/2024 193 HGB (g/dL) Date Value 07/03/2024 14.0 HCT (%) Date Value 07/03/2024 46.0 CMP NA (mmol/L) Date Value 07/04/2024 141 K (mmol/L) Date Value 07/04/2024 3.1 (L) CALCIUM (mg/dL) Date Value 07/04/2024 7.6 (L) CL (mmol/L) Date Value 07/04/2024 113 (H) BUN (mg/dL) Date Value 07/04/2024 24 (H) CREATININE (mg/dL) Date Value 07/04/2024 1.45 (H) GLUCOSE (mg/dL) Date Value 07/04/2024 80 CO2 TOTAL (mmol/L) Date Value 07/04/2024 24 ALBUMIN (g/dL) Date Value 07/03/2024 3.9 T PROTEIN (g/dL) Date Value 07/03/2024 7.3 TOTAL BILI (mg/dL) Date Value 07/03/2024 0.8 BILI UNCON (mg/dL) Date Value 05/15/2024 1.2 (H) BILI CONJ (mg/dL) Date Value 05/15/2024 0.0 ALT(SGPT) (U/L) Date Value 04/13/2019 26 ALTv (U/L) Date Value 07/03/2024 18 AST(SGOT) (U/L) Date Value 07/03/2024 34 ALK PHOS (U/L) Date Value 07/03/2024 79 NT-proBNP (pg/mL) Date Value 07/04/2024 4,090 (H) 06/08/2022 642 (H) Last Two A1C Results ([facility], PO[facility], [facility]) Recent Labs 12/08/23 0610 06/20/24 1038 HGBA1C 6.1* 5.8* Recent Labs 07/04/24 0338 TROPNI 0.031 ASSESSMENT/PLAN Principal Problem: Chest pain, unspecified type Active Problems: Essential hypertension Type 2 diabetes mellitus with complication, without long-term current use of insulin CVA, old, hemiparesis Metabolic syndrome Chronic combined systolic and diastolic CHF, NYHA class 2 LVH (left ventricular hypertrophy) Nonischemic cardiomyopathy PRAVEEN on CPAP Stage 3 chronic kidney disease Heart block Cardiac resynchronization therapy defibrillator (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 EKG dated 07.03.2024 strips reviewed shows V paced rhythm. Echocardiogram dated 05.15.2024 images reviewed shows LV severely dilated, severely reduced LV systolic function with EF around 5%, diastolic dysfunction, RV function reduced, mildly enlarged ascending aorta, left atrial mildly dilated, RVSP elevated 40-45. EKG dated 05.17.2024 strips reviewed shows V paced rhythm. EKG 05/15/2024 strips reviewed shows A sensed V paced rhythm noted. EKG 04/04/2024 strips reviewed shows A sensed V paced rhythm noted. Echocardiogram dated 07/30/2023 images reviewed shows severely dilated LV, EF is still severely reduced at 15 to 20%. No significant valve normalities noted. RVSP stable. No significant changes compared to the previous echocardiogram. Cath 08/02/2020: Non-obs CAD and again by cath 12/2020 done in [facility]. Continue aspirin 81 daily. Elevated troponins: Chronically elevated troponin: EKG dated 07.03.2024 strips reviewed shows V paced rhythm. Echocardiogram dated 05.15.2024 images reviewed shows LV severely dilated, severely reduced LV systolic function with EF around 5%, diastolic dysfunction, RV function reduced, mildly enlarged ascending aorta, left atrial mildly dilated, RVSP elevated 40-45. EKG 05/15/2024 strips reviewed shows A sensed V paced rhythm noted. EKG 04/04/2024 strips reviewed shows A sensed V paced rhythm noted. Echocardiogram dated 07/22/2023 images reviewed shows severely dilated LV, EF is still severely reduced at 15 to 20%. No significant valve normalities noted. RVSP stable. No significant changes compared to the previous echocardiogram. Cath 08/02/2020: Non-obs CAD and again by cath 12/2020 done in [facility]. Echocardiogram dated 02/17/2022 images reviewed shows moderately dilated LV, EF is still severely reduced at 10 to 15%. No significant valve normalities noted. RVSP 25-30. No significant changes compared to the previous echocardiogram. Recent Labs 07/03/24 2135 07/04/24 0338 TROPNI 0.046* 0.031 Hypertension: Stable. Improved blood pressure control with restarting the p.o. medications. Was on Cardene drip during the hospital 05/2024 Currently on Lasix 40 3 times daily and spironolactone 25 daily. Previous Bumex was noted to be at 4mg AM and 3mg PM. Continue home dose of carvedilol 25 twice daily. Continued Jardiance 10 mg daily. Continue lisinopril 2.5 daily reduced from lisinopril 10 mg twice daily Off Isordil 40 every 8 hours, spironolactone 25 BiD. Off Lisinopril 20 mg daily due to underlying CKD. Multiple times in the past, upon restarting his home meds in the hospital, his BP gets better. Off Catapres 0.2 TID, Procardia XL 90 mg daily was changed to Norvasc 10 mg daily in Hospital admission 09/2020, Off Hydralazine 100 mg BiD, Off Lisinopril in view of CKD noted in the past. Secondary HTN work up done by outside [facility] nephrology was negative. Chronic systolic diastolic heart failure: HFrEF: S/p BiV ICD 08/2020 Biotronik. elevated NT BNP noted on 07.03.2024 improving. CXR 07.03.2024 images reviewed shows mild bilateral perihilar opacities. Continue with Lasix 40 3 times daily along with spironolactone 25 daily. Additionally, he should continue taking carvedilol 25 mg twice daily, Jardiance 10 mg daily, and lisinopril 2.5 mg daily. Daily weight monitoring and fluid restriction to less than 2 L/day are recommended. It was noted that his last admission for heart failure was on Jun, 2022. He was able to avoid hospital readmissions while in a retirement due to compliance with medications, salt intake, and fluid restrictions. Since his discharge, he has had one hospital admission. If readmissions continue, returning to a retirement may be considered to ensure compliance with medications and dietary restrictions. Previous Bumex was noted to be at 4mg AM and 3mg PM. Lisinopril 2.5 daily reduced from lisinopril 10 mg twice daily EKG 05/15/2024 strips reviewed shows A sensed V paced rhythm noted. EKG 04/04/2024 strips reviewed shows A sensed V paced rhythm noted. Echocardiogram dated 07/22/2023 images reviewed shows severely dilated LV, EF is still severely reduced at 15 to 20%. No significant valve normalities noted. RVSP stable. No significant changes compared to the previous echocardiogram. Echocardiogram dated 02/17/2022 images reviewed shows moderately dilated LV, EF is still severely reduced at 10 to 15%. No significant valve normalities noted. RVSP 25-30. No significant changes compared to the previous echocardiogram. Echocardiogram dated 10/03/2021 images shows severely reduced LV systolic function at 10 to 15%. RVSP 25-30. No significant valve abnormalities noted. S/p ICD: Recommended to be compliant with device clinic evaluation. Last device check dated 10/02/2022 noted. Device check dated 10/02/2022 strips reviewed shows a BiV pacing at 98%. Elevated RV threshold noted. NT-proBNP (pg/mL) Date Value 07/04/2024 4,090 (H) 06/08/2022 642 (H) Frequent PVCs: Stable. Recommend to continue Coreg 25 mg BiD. Device check was within acceptable limits dated 10/2022 as noted above. Follow-up device clinic as already scheduled. Awaiting reports from 04.28.2024 device reports/strips. History of CVA noted in 10/24/2020 admission, 01/2021, 10/2021 admission. History of encephalopathy noted in the recent admission 06/2022. Currently in the retirement. Initially on wheelchair today. Currently using cane. Blood pressure stable today. Continue with aspirin 81 daily along with Eliquis 5 twice daily. Reviewed EP evaluation for considering watchman device. Was noted at not a good candidate because of his underlying noncompliance and concerns of not taking anticoagulation perioperatively around the watchman device which increases his chance of thrombosis. Strongly recommended my concern that regarding his recurrent hospital admission upon getting discharged from the retirement. History of PAF: Currently on Eliquis 5 twice daily along with carvedilol 25 twice daily. Dyslipidemia: On lipitor 40 mg daily. Recommended goal LDL at least less than 100. LDL CHOL (mg/dL) Date Value 06/20/2024 91 Nonobs CAD: on ASA 81 mg daily. Based upon multiple caths in the past last cath in 12/2020. CKD3: Slightly elevated compared to before. Follows outside nephrology Dr Mendoza. T2DM: Follows PCP. Last Two A1C Results ([facility], POCT, [facility]) Recent Labs 12/08/23 0610 06/20/24 1038 HGBA1C 6.1* 5.8* History of PRAVEEN: Recommend to follow-up with [facility] sleep clinic. Sleep study 12.21.2021 reviewed which confirms to have PRAVEEN. CPAP titration study dated 03/11/2022 reviewed noted to sleep apnea corrected with CPAP of 13 cc of water. Follows with sleep clinic Total Visit Time: 60 mins The total Visit time for today's visit with Bryan Parada encompassed 60 minutes. Time was spent reviewing the chart before, during and after the visit, reviewing laboratory results, taking interval history, performing the documented physical examination, completing and "cleaning up" the electronic medical record as well as addressing any questions and concerns. The time spent for patient care includes: PreCharting (eg, review of tests, notes, etc.), Obtaining and/or reviewing separately obtained history (Care Everywhere or paper records), Counseling and educating the patient/family/caregiver, Ordering medications, tests, or procedures, Ordering referrals and/or communicating with other health animal care taker (when not separately reported), Documenting clinical information in the electronic or other health record, and Independently interpreting results (not separately reported) and/or communicating results to the patient/family/caregiver. Keep up with basic health maintenance including an annual physical examination with your primary physician, appropriate vaccinations (influenza, pneumonia, new shingles vaccination), and other appropriate testing (e.g. EGD, colonoscopy etc). This report was dictated using [employer] and is subject to voice recognition errors. Please excuse any unusual inaccuracies. My diagnostic impression and treatment plans were discussed at length with the patient. All side effects as well as drug-drug interactions and risks discussed at length. Ample opportunity was offered and encouraged to ask questions during this visit and patient appreciated the answers given by me and verbzalised statisfcation in the answers given. Huy Ladd MD Keg Inspector, Division of Cardiology [facility] [employer] 2024-05-17 15:29:20 Associated Order(s): CONSULT BOOKKEEPER RECEPTIONIST-ADULT Arrangements made with MAMI FRIEDMAN per [facility]. [facility]: [phone] MATIAS Mitchell Chief Human Resources Officer - Care Management [facility] [phone] [email or web address] 2024-05-15 09:41:50 Associated Order(s): CONSULT CARDIOLOGY 2 [facility] Cardiology Consult Note Patient: Bryan Parada Date of : 1965 Primary Care Physician: Brooks Barker History of Present Illness: Bryan Parada is a 57 year old male presented to ER for evaluation for chest pain/shortness of breath. History from the patient himself. Pertinent cardiac history reviewed from the chart. History from the patient. Patient is here alone. Currently in [facility]. 05/15/2024 Presented to ER with chest pain and shortness of breath. Patient's blood pressure was significantly elevated in the ER at 170/120. Patient was given IV diuretics and started on a Cardene drip. Patient will be admitted to the ICU on Cardene drip for strict blood pressure control. Patient is long-term prognosis is poor especially with his poor compliance with his treatment regimen. DELGADO NYHA class II-III noted stable. No exertional palpitations or palpitations at rest. No syncopal attacks. 04/25/2024 The patient is a 58-year-old male who presented to the office for follow-up on heart failure with reduced ejection fraction. He was recently admitted to the hospital on 04/06/2024. Prior to this admission, he was hospitalized in 06/2022 and has been residing in a retirement facility since then. His recent hospitalization in 04/2024 was his first readmission. During his inpatient stay, he was evaluated by the cardiology team and continued on his previous heart failure medications. He was also given IV Lasix 40 mg twice daily and spironolactone 25 mg daily. His discharge medications were reviewed, but he did not bring his medication list or bottles to the appointment. He reports that he is currently living in an apartment with friends and is regularly taking his medications, although he does not remember their names. Hospital admission dated 06/2022. Previous cardiac history: Admitted to hospital from 05/05/2022 until 05/06/2022 for atypical chest pain/worsening shortness of breath. ER visit noted 05/09/2022 and 05/11/2022. Admitted in the main campus 05/11/2022 until 05/22/2022. Noted to have acute on chronic systolic and diastolic heart failure. ER visit dated noted. ER visit dated 05/22/2022 noted. Underwent CardioMEMS device placement dated 05/28/2022. Right heart cath done at that time showed severe elevated right/left-sided filling pressures. Mixed pulm hypertension noted. Readmitted back in the hospital 06/01/2022 until 06/03/2022 for atypical chest pain/shortness of breath. Admission from 06/05/2022 on 06/09/2022 reviewed. Since then patient been discharged to retirement. Since then no readmission noted in the hospital. Admitted 04/23/2022 for atypical chest pain. Noted to have hypertensive urgency at that time. Admitted 04/01/2022 for acute diverticulitis. GI bleeding noted. Presented to ER 03.17.2022 for atypical chest pain Seen in [facility] 03.06.2022 for atypical chest pain/mild elevated troponins. Presented to ER 02.02.2022 for chest pain/[place]. Work-up was unremarkable. Elevated troponins noted chronically elevated/stable. Subsequent to which was admitted back 02/15/2022 for chest pain/elevated hypertension. Due to lack of beds in [facility], patient was transferred to [facility]. Was admitted to the heart failure team. DC summary dated reviewed. Amlodipine 5 mg daily was started but upon medication review today 02/26/2022 he has not picked up the prior medicine yet. 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 Bumex was increased from 3 mg twice daily to 4 mg in the morning/3 mg in the night. Home medication was reviewed today 02/26/2022. Patient's been compliant with taking carvedilol 25 twice daily along with lisinopril/Lipitor/spirono lactone as listed below in the assessment and plan. Last home medications was reviewed dated 12/07/2021 in the office visit by myself apparently. Eliquis/Lipitor was not available for review however he reports taking it. Rest of the medications was verified and updated in the MAR. Patient reports currently [facility] Home health nurse coming to his home. Presented to the ER 01/21/2022 for evaluation of atypical chest pain/not feeling well. Seen by [facility] heart failure clinic 12/27/2021. Dose of spironolactone was increased to 50 mg daily. Admission noted 01/01/2022 for atypical chest pain. Admitted 10/24/2021 to 10/26/2021: elevated troponin. Admitted and DC'd on .: Presented with chest pain with elevated blood pressure. Elevated BNP noted. Admitted 10/06/2021 and DC'd on 10/08/2021 for elevated troponin/heart failure. Admitted 10/02/2021 and DC'd on 10/03/2021 from [facility]. Noted to have acute right-sided MCA territory infarct. Left-sided weakness. Seen by neurology in [facility]. Started on Eliquis 5 mg twice daily. Admitted 09/28/2021 for mild elevated troponin. DC'd the next day. Presented with complaints of chest pain. States that he got home and started having chest pain and came to the emergency room. Reports blood pressure was extremely elevated in spite of taking his medication. As usual he did not bring any of his medications. Since her discharge from [facility] 08/27/2021, patient was readmitted back in the hospital 08/28/2021. Transferred to [facility]. Seen by heart failure team at that visit. Recommended right heart cath followed by CardioMEMS device due to recurrent hospital admission. Underwent right heart cath . No CardioMEMS device implanted. Recommended to increase Bumex from 2 mg twice daily to 3 mg twice daily. Heart failure note dated 09/01/2021 reviewed. Advised to continue Coreg 50 twice daily, hydralazine 50 every 8 hours. Recommended to increase Bumex to 3 mg twice daily. Patient was discharged on Bumex 2 mg twice daily. Patient underwent right heart cath 09/20/2021. Mean PA pressure was noted to be 38. Wedge was 31. Cardiac output 5.1 with a cardiac index of 1.9.. TPG 8 7. Patient was advised to increase the Bumex to 3 mg p.o. twice daily. 08/13/2021 noted to have COVID infection along with chest pain. 08/04/2021 admitted for chest pain Admission 07/24/2021 for atypical chest pain. Admission 07/01/2021: For atypical chest pain. Admission 06/12/2021 for atypical chest pain. Admitted 06.08.2021 for atypical chest pain. Admitted 05/30/2021 for chest pain. Admitted 05/22/2021 to 05/24/2021. Again admitted for heart failure. Diuresis was done. IV Lasix was changed to Bumex. Admitted 05/17/2021 to 05/19/2021 for for chest pain evaluation. Noted to have acute on chronic combined heart failure. Started on IV Lasix followed by you Lasix were changed. And then discharged. Patient was admitted 05/07/2021 to 05/10/2021: For atypical chest pain/heart failure. After discussion with heart failure team, milrinone drip was discontinued. PICC line discontinued. Admitted 03/12/2021 and DC'd on 04/04/2021. Patient was admitted for heart failure symptoms. Was diuresis. Supposed to be discharged on 03/19/2021. But disease was held. Started on milrinone. Noted to hypotension. Subsequent cardiogenic shock in the setting the context of milrinone assisted diuresis. Started on dopamine in the Resort [employer]. Slowly and gradually dopamine was weaned off. DC'd milrinone infusion. DC summary medications reviewed. On Isordil 40 3 times daily, Toprol-XL 50 daily, Lipitor 40, Lasix 60 mg twice daily, hydralazine 50 every 8, KCl 20 daily along with aspirin/Plavix/Eliquis., Aldactone 25 daily. DC'd on lisinopril DC amlodipine DC to clonidine, DC'd carvedilol. Since discharge, patient was seen by heart failure team 04/09/2021 and again on 04/23/2021. Admitted 02/19/2021 and 02/24/2021: For atypical chest pain/hypertension. Admitted in [facility] 01/2021. He reports that he was admitted for CVA. Reports having receiving TPA. And then admitted in the hospital closely for few days. [facility] records reviewed. Admitted on 01/03/2021. Patient was noted to have acute CVA with left-sided weakness along with\\hypertension. Acute on chronic kidney injury with chronic systolic heart failure EF less than 25% s/p ICD. CKD stage II. Patient underwent s/p TPA. CT showed no acute changes. MRI was not done because of pacemaker listed in the summary. 01/10/2021 code stroke was called because of worsening weakness on the right side. Patient was seen by neurology. CT the did not show any acute new changes. ER visit 12/27/2020 reviewed. Patient was admitted for elevated blood pressure. Sent to the ER from home health due to elevated blood pressure. Medication was adjusted in the ER with recent blood pressure not better hence he was discharged from the hospital. Patient report that he presented to the [facility] for chest discomfort . Discharge summary dated from 12/05/2020 from [facility] was reviewed. Patient was admitted for evaluation of CVA. Underwent imaging studies which did not relieve any acute lesion. Looks like patient was seen by the telemetry neurologist team who suggested patient had a TIA. Cardiology team evaluated the patient. NM stress test was done which was positive for reversible ischemia. Underwent coronary angiogram which showed no obstructive CAD. Presents with TIA with left-sided weakness. CT angio neck was done which was reported to be nondiagnostic. CT scan head did not relieve any acute lesion. Patient was recommended to start Plavix in addition to Eliquis and aspirin. ER visit dated 11/20/2020 noted. He was not admitted during that ER visit because of lack of beds and is troponins x2 were unremarkable. With IV hydralazine blood pressure came down. Hence he was discharged home with plans for outpatient follow-up with cardiology. Feeling well on the whole. No new cardiac symptoms noted. Had multiple ER visits/admission for atypical chest pain/hypertension uncontrolled. He was recently admitted on 10/24/2020 and discharged on 10/25/2020 noted to have left upper respiratory weakness. Patient was sent to [facility]. Was seen by neurology. Per the discharge summary patient was started on Eliquis 5 mg twice daily. Primary diagnosis of acute CVA noted in the discharge summary. Neurology consult note during that admission was reviewed. Neurology also recommended starting Eliquis 5 mg twice daily. 10/12/2020: Admitted for elevated blood pressure/atypical chest pain. 10/02/2020 again admitted for atypical chest pain/hypertensive emergency 09/22/2020 admitted in [facility] for hypertensive urgency again 07/2020, he was admitted in [facility] between 07/30/2020 and discharged on 08/09/2020. During that admission he was noted to have atypical chest pain/heart failure admission. Patient was noted to have new onset heart failure reduced ejection fraction. Coronary angiogram did not show any obstructive CAD. Underwent EP evaluation followed by BiV ICD placement. Subsequent to which he was readmitted back again 08/13/2020 to 08/22/2020 for hypertension emergency. Norvasc was stopped and changed to Procardia XL in the past for better BP control. Catapres patch was changed to PO Clonidine since the patch didn't stick on him properly due to excessive sweating. Reports that he had seen nephrology Dr Ag and they had told him that everything is within acceptable limits. Previous Cardiac Studies: EKG 04/29/2022 reviewed shows V paced rhythm. Chest x-ray 04/29/2022 reviewed shows heart failure pattern. Chest x-ray 03/17/2022 reviewed shows heart failure pattern. EKG 03/05/2022 shows V paced rhythm. Echocardiogram dated 02/17/2022 reviewed shows severely reduced LV systolic function at 10 to 15% noted. RV mildly dilated. No significant valve valve is noted. EKG 01/21/2022 shows V paced rhythm. EKG 09/21/21 shows A sensed V paced rhythm. Chest x-ray 02/02/2022 shows heart failure pattern. CXR 01.21.2022 IMPRESSION Mild pulmonary vascular congestion without overt edema. Stable cardiomegaly. EKG 08/22/2021 shows atrial sensed V paced rhythm noted. No significant change compared to the previous EKG. Chest x-ray 08/22/2021 FINDINGS/IMPRESSION: Left chest wall bipolar leads terminating in the right atrium, right ventricle and coronary sinus. The intracardiac portions of the leads are not clearly seen due to technique. Prominent interstitial markings and perihilar haziness represents mild to moderate interstitial pulmonary edema. No sizable pleural effusion is seen. The left lung base is not completely imaged. No pneumothorax. Stable severe cardiomegaly and dilated pulmonary arteries. No acute osseous abnormalities. EKG 08/04/2021 reviewed shows atrial sensed V paced rhythm noted. No significant change compared to the previous EKG. Chest x-ray dated 08/04/2020 reviewed shows no evidence of any heart failure pattern. Prominent pulmonary arteries noted. ECG 07.14.2021: V paced rhythm. CXR 07.14.2021 IMPRESSION Limited study. Enlarged cardiomediastinal silhouette. No definite acute cardiopulmonary process. ECG 06.07.2021 A sensed V paced rhythm. CXR 06.08.2021 IMPRESSION Cardiomegaly with suspected small left-sided pleural effusion and prominent pulmonary vascular markings, may represent developing interstitial pulmonary edema. EKG 05/30/2021 A sensed V paced rhythm. CXR 05/30/2021 IMPRESSION 1. Mild cardiomegaly with no acute cardiopulmonary abnormalities Identified. CT head 05/30/2021 IMPRESSION No acute intracranial hemorrhage or mass effect. EKG 05/07/2021 reviewed shows BiV paced rhythm. CXR 05/07/2021 IMPRESSION Enlarged cardiac silhouette suggesting cardiomegaly and/or pericardial effusion. Central interstitial and alveolar opacities suggesting mild edema and/or pneumonitis. Persistent blunting of the left costophrenic sulcus suggesting small layering left effusion Echo 03.12.2021 nterpretation Summary A two-dimensional transthoracic echocardiogram with M-mode and Doppler was performed. The study was technically adequate. Compared to prior study, changes are noted. Contrast injection was performed. The left ventricular size is normal. There is severe concentric left ventricular hypertrophy. Left ventricular systolic function is severely reduced. Ejection Fraction = 10-15%. Left ventricular filling presure is elevated. The right ventricular systolic function is mildly reduced. Right ventricular systolic pressure is 25-30 mmHg. Trace pericardial effusion. Echo 08/2020 Interpretation Summary A two-dimensional transthoracic echocardiogram with M-mode and Doppler was performed. Contrast injection was performed. Compared to prior study, changes are noted. Ejection Fraction = 20-25%. Estimated RA pressure is 0-5 mmHg. Right ventricular systolic pressure is normal. Therer is a trivial pericardial effusion. Cath 07/2020: Nonobs ECG 07/2020 Sinus tachycardia with 1st degree A-V block Right atrial abnormality Left axis deviation Voltage criteria for left ventricular hypertrophy Abnormal ECG ECG 05/15/2020 ST with narrow QRS complex. Nonspecific ST changes. PVC noted. ECG 04/30/2020 Sinus rhythm with 1st degree A-V block with occasional Premature ventricular beats and Fusion complexes Biatrial enlargement Left axis deviation Left ventricular hypertrophy with QRS widening and repolarization abnormality Prolonged QT Abnormal ECG Echo 03/2020 A complete two-dimensional transthoracic echocardiogram was performed (2D, M-mode, Doppler and color flow Doppler). The study was technically difficult. Compared to prior study, changes are noted. There is severe global hypokinesis of the left ventricle. Ejection Fraction = 20-25%. Left ventricular systolic function is severely reduced. Diastolic dysfunction. There is severe concentric left ventricular hypertrophy. Insufficient Tricuspid regurgitation jet to estimate RVSP. Echo 08/2019 Interpretation Summary A complete two-dimensional transthoracic echocardiogram was performed (2D, M-mode, Doppler and color flow Doppler). The study was technically difficult. Compared to prior study, changes are noted. There is severe concentric left ventricular hypertrophy. Ejection Fraction = 40-45%. Diastolic dysfunction. Left ventricular filling presure is elevated. There is mild to moderate global hypokinesis of the left ventricle. Estimated RA pressure is 0-5 mmHg. ECG 01/2019 Sinus tachycardia Left axis deviation Incomplete right bundle branch block Inferior infarct (cited on or before 21-SEP-2017) Abnormal ECG When compared with ECG of 20-JAN-2019 08:53, No significant change has occurred ECG 10/2019 Sinus rhythm with 1st degree A-V block with Premature atrial beats Biatrial enlargement Pulmonary disease pattern left anterior fascicular block Left ventricular hypertrophy with QRS widening and repolarization abnormality Cannot exclude Inferior infarct (cited on or before 27-SEP-2019) Abnormal ECG Echo 07/2018 Interpretation Summary A complete two-dimensional transthoracic echocardiogram was performed (2D, M-mode, Doppler and color flow Doppler). The study was technically difficult. Compared to prior study, there is no significant change. There is severe concentric left ventricular hypertrophy. The overall left ventricular function is normal. The left atrium is mildly dilated. Insufficient Tricuspid regurgitation jet to estimate RVSP. Holter 04/2018 underlying rhythm is sinus occasional PVC's second degree AV block Mobitz type 2 with one dropped beat Abnormal holter Echo 03/2018 Interpretation Summary A complete two-dimensional transthoracic echocardiogram was performed (2D, M-mode, Doppler and color flow Doppler). The study was technically difficult. LVEF varies with RR interval due to Afib. LVEF 40-55%. Mild anteroseptal hypokinesis. Estimated RA pressure is 0-5 mmHg. Right ventricular systolic pressure is normal. Echo 08/2017 Interpretation Summary A complete two-dimensional transthoracic echocardiogram was performed (2D, M-mode, Doppler and color flow Doppler). The study was technically difficult. LVEF appears moderately reduced. Compared to study on 07/14/2016, LVEF has decreased. Compared to study 08/25/2017, LVEF appears similar. Echo 07/2016 Interpretation Summary A complete two-dimensional transthoracic echocardiogram was performed (2D, M-mode, Doppler and color flow Doppler). The study was technically limited. The left ventricular size is normal. There is severe concentric left ventricular hypertrophy. Ejection Fraction = 55-60%. Regional wall motion abnormalities cannot be excluded due to limited visualization. Right ventricular systolic pressure is normal. RA pressure 0-5 mmHg. December 2015 echocardiogram Interpretation Summary A complete two-dimensional transthoracic echocardiogram was performed (2D, M-mode, Doppler and color flow Doppler). The study was technically limited. The left ventricular size is normal. There is moderate concentric left ventricular hypertrophy. Ejection Fraction = 45-50%. Regional wall motion abnormalities cannot be excluded due to limited visualization. Right ventricular systolic pressure is elevated at 30-35 mmHg. RA pressure 0-5 mmHg. 06.21.2015 TTE A complete two-dimensional transthoracic echocardiogram was performed (2D, M-mode, Doppler and color flow Doppler). The study was technically limited. There is no comparison study available. Mild LV dilatation with mild concentric LVH. Mild to moderately reduced LV systolic function. Diastolic function is restrictive with elevated filling pressure. Biatrial atrial enlargement. No hemodynamic significant valve pathology noted. NM Stress test 08.23.2015 IMPRESSION: 1. The patient's electrocardiogram is nonischemic. 2. The patient's clinical response is asymptomatic for angina. 3. Overall left ventricular systolic function is severely reduced and with regional wall motion abnormalities (as noted above). The left ventricular ejection fraction is calculated to be 30 %. 4. There is no evidence of transient ischemic dilation (TID) of the left ventricle. 5. SPECT images demonstrate small area, mild degree reversible ischemia noted in the apical anterior wall segments. 6. Myocardial perfusion imaging is overall abnormal. Cardiac Cath 08.31.2015 LEFT CORONARY ARTERY: Left Main Artery: Patent LAD: Patent, D1 large patent Ramus: Large patent Circumflex: Patent, Om1 large patent, Om2 patent RIGHT CORONARY ARTERY: DOMINANCE: Right Dominant RCA: Large, dominant, patent LV FINDINGS: LV Normal EDP : 15 mmHg Impression: nonobstructive CAD CT scan Abdomen 10/2015 Small nodular density in the right adrenal gland probably an incidental adenoma, however please correlate with metanephrine levels. PAST MEDICAL HISTORY Past Medical History: Diagnosis [...] N/A 02/19/2017 Surgeon: Fran Canchola MD; Location: [facility] OR Location ESOPHAGOGASTRODUODENOSCOPY N/A 07/20/2019 Surgeon: Maddi Ballesteros MD; Location: [facility] OR Location ESOPHAGOGASTRODUODENOSCOPY N/A 04/03/2021 Surgeon: Fran Trinh MD; Location: [facility] ([facility]) OR Location JOINT SURGERY Right 11/2016 Right knee PACEMAKERS INSERTION Family History Problem Relation Age of Onset CHF (congestive heart failure) Mother Depression Mother Hypertension Mother Diabetes Mother Diabetes Father Hypertension Father SOCIAL HISTORY Social History Socioeconomic History Marital status: Single Number of children: 2 Highest education level: High school graduate Occupational History Occupation: Disabled Comment: SSDI Tobacco Use Smoking status: Never Passive exposure: Past Smokeless tobacco: Never Vaping Use Vaping status: Never Used Substance and Sexual Activity Alcohol use: Not Currently Comment: 1 cup of whiskey but last dirnk in December Drug use: Never Sexual activity: Yes Partners: Male, Female control/protection: Condom Social History Narrative Lives in an apt in [place], [place] himself. Social Determinants of Health Financial Resource Strain: Medium Risk (04/13/2024) Overall Financial Resource Strain (CARDIA) Difficulty of Paying Living Expenses: Somewhat hard Food Insecurity: No Food Insecurity (04/13/2024) Hunger Vital Sign Worried About Running Out of Food in the Last Year: Never true Ran Out of Food in the Last Year: Never true Transportation Needs: No Transportation Needs (04/13/2024) PRAPARE - Transportation Lack of Transportation (Medical): No Lack of Transportation (Non-Medical): No Physical Activity: Insufficiently Active (04/13/2024) Exercise Vital Sign Days of Exercise per Week: 3 days Minutes of Exercise per Session: 40 min Social Connections: Unknown (04/06/2024) Social Connection and Isolation Panel [NHANES] Frequency of Communication with Friends and Family: More than three times a week Marital Status: Never Housing Stability: Low Risk (04/13/2024) Housing Stability Vital Sign Unable to Pay for Housing in the Last Year: No Number of Places Lived in the Last Year: 1 Unstable Housing in the Last Year: No ALLERGIES Allergies Allergen Reactions Imdur [Isosorbide Mononitrate] Other - See comments Severe hypotension, likely from severe LVH per Dr. Sanderson. MEDICATIONS Current Discharge Medication List STOP taking these medications KETOCONAZOLE 2 % cream Comments: Reason for Stopping: ammonium lactate 12 % cream Comments: Reason for Stopping: lidocaine-prilocaine 2.5-2.5 % cream Comments: Reason for Stopping: methocarbamoL 500 mg tablet Comments: Reason for Stopping: allopurinoL 300 mg tablet Comments: Reason for Stopping: apixaban 5 mg tablet Comments: Reason for Stopping: aspirin 81 mg chewable tablet Comments: Reason for Stopping: blood sugar diagnostic strip Comments: Reason for Stopping: Blood-Glucose Meter Kit Comments: Reason for Stopping: furosemide 40 mg tablet Comments: Reason for Stopping: Lancets Misc Comments: Reason for Stopping: atorvastatin 40 mg tablet Comments: Reason for Stopping: busPIRone 5 mg tablet Comments: Reason for Stopping: carvediloL 25 mg tablet Comments: Reason for Stopping: diclofenac dodium (VOLTAREN) 1 % gel Comments: Reason for Stopping: empagliflozin (JARDIANCE) 10 mg tablet Comments: Reason for Stopping: gabapentin 100 mg capsule Comments: Reason for Stopping: glipiZIDE 5 mg tablet Comments: Reason for Stopping: spironolactone (ALDACTONE) 25 mg tablet Comments: Reason for Stopping: lisinopriL 2.5 mg tablet Comments: Reason for Stopping: omeprazole 40 mg capsule Comments: Reason for Stopping: Current Facility-Administered Medications: acetaminophen (TYLENOL) tablet 650 mg, 650 mg, Oral, Q6HPRN, Yared Larios MD allopurinoL (ZYLOPRIM) tablet 300 mg, 300 mg, Oral, DAILY, Yared Larios MD, 300 mg at 05/15/24 0843 ammonium lactate (LAC-HYDRIN) 12 % cream, , Topical, PRN, Yared Larios MD apixaban (ELIQUIS) tablet 5 mg, 5 mg, Oral, BID, Yared Larios MD, 5 mg at 05/15/24 0843 aspirin chewable tablet 81 mg, 81 mg, Oral, DAILY, Yared Larios MD, 81 mg at 05/15/24 0843 busPIRone (BUSPAR) tablet 5 mg, 5 mg, Oral, BID, Yared Larios MD, 5 mg at 05/15/24 0843 carvediloL (COREG) tablet 25 mg, 25 mg, Oral, BID MEALS, Yared Larios MD, 25 mg at 05/15/24 0842 fentanyl PF (SUBLIMAZE (PF)) injection 12.5 mcg, 12.5 mcg, Slow IV Push, Q6HPRN, Yared Larios MD furosemide (LASIX) tablet 40 mg, 40 mg, Oral, TID, Yared Larios MD, 40 mg at 05/15/24 0843 gabapentin (NEURONTIN) capsule 100 mg, 100 mg, Oral, TID, Yared Larios MD, 100 mg at 05/15/24 0843 glipiZIDE (GLUCOTROL) tablet 5 mg, 5 mg, Oral, BIDAC, Yared Larios MD HYDROcodone-acetaminophen (NORCO 5) tablet 1 tablet, 1 tablet, Oral, Q6HPRN, Yared Larios MD lidocaine-prilocaine (EMLA) 2.5-2.5 % cream, , Topical, BID, Yared Larios MD lisinopriL (PRINIVIL,ZESTRIL) tablet 2.5 mg, 2.5 mg, Oral, DAILY, Yared Larios MD, 2.5 mg at 05/15/24 0843 methocarbamoL (ROBAXIN) tablet 500 mg, 500 mg, Oral, TIDPRN, Yared Larios MD niCARdipine (CARDENE I.V.) 40 mg in NaCL 200 mL (RTU) infusion, 2.5-15 mg/hr, IV Infusion, TITRATE, Yared Larios MD, Stopped at 05/15/24 0846 ondansetron (ZOFRAN (PF)) injection 4 mg, 4 mg, Slow IV Push, Q6HPRN, Yared Larios MD pantoprazole (PROTONIX) EC tablet 40 mg, 40 mg, Oral, DAILY, Yared Larios MD, 40 mg at 05/15/24 0843 rosuvastatin (CRESTOR) tablet 10 mg, 10 mg, Oral, DAILY, Yared Larios MD, 10 mg at 05/15/24 0843 spironolactone (ALDACTONE) tablet 25 mg, 25 mg, Oral, DAILY, Yared Larios MD, 25 mg at 05/15/24 0843 REVIEW OF SYSTEMS: Comprehensive 10-system review was conducted and were negative except for what's noted in the HPI. The following systems were reviewed: Constitutional, cardiovascular, respiratory, gastrointestinal, genitourinary, musculoskeletal, neurologic, psychiatric, endocrinological, and hematological. PHYSICAL EXAMINATION: Vitals: 05/15/24 0400 05/15/24 0500 05/15/24 0600 05/15/24 0737 BP: 134/90 132/87 Pulse: 87 87 79 Resp: (!) 33 21 18 Temp: 36.1 ?C (97 ?F) TempSrc: SpO2: 96% 94% 92% Weight: Height: General: no apparent distress HEENT: normocephalic atraumatic Neck: supple, no lymphadenopathy, no bruits, no JVD Lungs: clear to auscultation bilaterally. No wheezes or rhonchi. No increased work of breathing. Cardio: Regular rate and rhythm, S1&S2 normal, no murmurs, rubs or gallops Abdomen: soft; non-tender; non-distended; normoactive bowel sounds. : not examined Rectal: not examined Extremities: no clubbing, cyanosis, or edema. Skin: no rashes, no visible lesions. Neuro: no gross focal deficits LABS - Reviewed pertinent labs as below: CBC WBC (10*3/?L) Date Value 05/15/2024 5.32 RBC (10*6/?L) Date Value 05/15/2024 5.20 PLT (10*3/?L) Date Value 05/15/2024 222 HGB (g/dL) Date Value 05/15/2024 13.9 HCT (%) Date Value 05/15/2024 44.9 CMP NA (mmol/L) Date Value 05/15/2024 139 K (mmol/L) Date Value 05/15/2024 4.1 CALCIUM (mg/dL) Date Value 05/15/2024 8.9 CL (mmol/L) Date Value 05/15/2024 108 BUN (mg/dL) Date Value 05/15/2024 17 CREATININE (mg/dL) Date Value 05/15/2024 1.51 (H) GLUCOSE (mg/dL) Date Value 05/15/2024 107 CO2 TOTAL (mmol/L) Date Value 05/15/2024 23 ALBUMIN (g/dL) Date Value 05/15/2024 3.6 T PROTEIN (g/dL) Date Value 05/15/2024 7.3 TOTAL BILI (mg/dL) Date Value 05/15/2024 1.6 (H) BILI UNCON (mg/dL) Date Value 05/15/2024 1.2 (H) BILI CONJ (mg/dL) Date Value 05/15/2024 0.0 ALT(SGPT) (U/L) Date Value 04/13/2019 26 ALTv (U/L) Date Value 05/15/2024 29 AST(SGOT) (U/L) Date Value 05/15/2024 39 ALK PHOS (U/L) Date Value 05/15/2024 64 NT-proBNP (pg/mL) Date Value 05/15/2024 10,300 (H) 06/08/2022 642 (H) Last Two A1C Results ([facility]/LC, POCT, [facility]) Recent Labs 08/27/23 0720 12/08/23 0610 HGBA1C 6.4* 6.1* Recent Labs 05/15/24 0249 TROPNI 0.049* ASSESSMENT/PLAN Principal Problem: Hypertensive emergency Active Problems: Essential hypertension Type 2 diabetes mellitus with complication, without long-term current use of insulin CVA, old, hemiparesis Metabolic syndrome PRAVEEN (obstructive sleep apnea) Chronic combined systolic and diastolic CHF, NYHA class 2 LVH (left ventricular hypertrophy) Nonischemic cardiomyopathy Stage 3 chronic kidney disease Heart block Cardiac resynchronization therapy defibrillator (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 Improved blood pressure control with restarting the p.o. medications. Currently off Cardene drip. Currently on Lasix 40 3 times daily and spironolactone 25 daily. Previous Bumex was noted to be at 4mg AM and 3mg PM. Continue home dose of carvedilol 25 twice daily. Continued Jardiance 10 mg daily. Continue lisinopril 2.5 daily reduced from lisinopril 10 mg twice daily Off Isordil 40 every 8 hours, spironolactone 25 BiD. Off Lisinopril 20 mg daily due to underlying CKD. Multiple times in the past, upon restarting his home meds in the hospital, his BP gets better. Off Catapres 0.2 TID, Procardia XL 90 mg daily was changed to Norvasc 10 mg daily in Hospital admission 09/2020, Off Hydralazine 100 mg BiD, Off Lisinopril in view of CKD noted in the past. Secondary HTN work up done by outside [facility] nephrology was negative. Chronic systolic diastolic heart failure: HFrEF: S/p BiV ICD 08/2020 Biotronik. Chest x-ray dated 05/15/2024 images reviewed shows cardiomegaly but no heart failure pattern noted. Recommended serial troponins, echocardiogram Significantly elevated NT BNP noted. Continue with Lasix 40 3 times daily along with spironolactone 25 daily. His condition is stable with no signs of bilateral crackles. Additionally, he should continue taking carvedilol 25 mg twice daily, Jardiance 10 mg daily, and lisinopril 2.5 mg daily. Daily weight monitoring and fluid restriction to less than 2 L/day are recommended. It was noted that his last admission for heart failure was on Nov, 2022. He was able to avoid hospital readmissions while in a retirement due to compliance with medications, salt intake, and fluid restrictions. Since his discharge, he has had one hospital admission. If readmissions continue, returning to a retirement may be considered to ensure compliance with medications and dietary restrictions. Previous Bumex was noted to be at 4mg AM and 3mg PM. Lisinopril 2.5 daily reduced from lisinopril 10 mg twice daily EKG 05/15/2024 strips reviewed shows A sensed V paced rhythm noted. EKG 04/04/2024 strips reviewed shows A sensed V paced rhythm noted. Echocardiogram dated 07/22/2023 images reviewed shows severely dilated LV, EF is still severely reduced at 15 to 20%. No significant valve normalities noted. RVSP stable. No significant changes compared to the previous echocardiogram. Echocardiogram dated 02/17/2022 images reviewed shows moderately dilated LV, EF is still severely reduced at 10 to 15%. No significant valve normalities noted. RVSP 25-30. No significant changes compared to the previous echocardiogram. Echocardiogram dated 10/03/2021 images shows severely reduced LV systolic function at 10 to 15%. RVSP 25-30. No significant valve abnormalities noted. S/p ICD: Recommended to be compliant with device clinic evaluation. Last device check dated 10/02/2022 noted. Device check dated 10/02/2022 strips reviewed shows a BiV pacing at 98%. Elevated RV threshold noted. NT-proBNP (pg/mL) Date Value 05/15/2024 10,300 (H) 06/08/2022 642 (H) Atypical chest pain: Chronically elevated troponin. EKG 05/15/2024 strips reviewed shows A sensed V paced rhythm noted. EKG 04/04/2024 strips reviewed shows A sensed V paced rhythm noted. Echocardiogram dated 07/30/2023 images reviewed shows severely dilated LV, EF is still severely reduced at 15 to 20%. No significant valve normalities noted. RVSP stable. No significant changes compared to the previous echocardiogram. Cath 08/02/2020: Non-obs CAD and again by cath 12/2020 done in [facility]. Continue aspirin 81 daily. Elevated troponins: Chronically elevated troponin: EKG 05/15/2024 strips reviewed shows A sensed V paced rhythm noted. EKG 04/04/2024 strips reviewed shows A sensed V paced rhythm noted. Echocardiogram dated 07/22/2023 images reviewed shows severely dilated LV, EF is still severely reduced at 15 to 20%. No significant valve normalities noted. RVSP stable. No significant changes compared to the previous echocardiogram. Cath 08/02/2020: Non-obs CAD and again by cath 12/2020 done in [facility]. Echocardiogram dated 02/17/2022 images reviewed shows moderately dilated LV, EF is still severely reduced at 10 to 15%. No significant valve normalities noted. RVSP 25-30. No significant changes compared to the previous echocardiogram. Recent Labs 05/15/24 0019 05/15/24 0249 TROPNI 0.052* 0.049* Frequent PVCs: Stable. Recommend to continue Coreg 25 mg BiD. Device check was within acceptable limits dated 10/2022 as noted above. Follow-up device clinic as already scheduled. History of CVA noted in 10/24/2020 admission, 01/2021, 10/2021 admission. History of encephalopathy noted in the recent admission 06/2022. Currently in the retirement. Initially on wheelchair today. Currently using cane. Blood pressure stable today. Continue with aspirin 81 daily along with Eliquis 5 twice daily. Reviewed EP evaluation for considering watchman device. Was noted at not a good candidate because of his underlying noncompliance and concerns of not taking anticoagulation perioperatively around the watchman device which increases his chance of thrombosis. Now that he is in rehab and no admissions noted since June 2022, Currently patient reports that he is planned to get discharged from the retirement looking for apartment outside. Strongly recommended my concern that regarding his recurrent hospital admission upon getting discharged from the retirement. History of PAF: Currently on Eliquis 5 twice daily along with carvedilol 25 twice daily. Dyslipidemia: On lipitor 40 mg daily. Recommended goal LDL at least less than 100. LDL CHOL (mg/dL) Date Value 05/15/2024 60 Nonobs CAD: on ASA 81 mg daily. Based upon multiple caths in the past last cath in 12/2020. CKD3: Slightly elevated compared to before. Follows outside nephrology Dr Mendoza. T2DM: Follows PCP. Last Two A1C Results ([facility]/LC, POCT, [facility]) Recent Labs 08/27/23 0720 12/08/23 0610 HGBA1C 6.4* 6.1* History of PRAVEEN: Recommend to follow-up with [facility] sleep clinic. Sleep study 12.21.2021 reviewed which confirms to have PRAVEEN. CPAP titration study dated 03/11/2022 reviewed noted to sleep apnea corrected with CPAP of 13 cc of water. Follows with sleep clinic Rx plan discussed with hospitalist team. Total Visit Time: 60 mins The total Visit time for today's visit with Bryan Parada encompassed 60 minutes. Time was spent reviewing the chart before, during and after the visit, reviewing laboratory results, taking interval history, performing the documented physical examination, completing and "cleaning up" the electronic medical record as well as addressing any questions and concerns. The time spent for patient care includes: PreCharting (eg, review of tests, notes, etc.), Obtaining and/or reviewing separately obtained history (Care Everywhere or paper records), Counseling and educating the patient/family/caregiver, Ordering medications, tests, or procedures, Ordering referrals and/or communicating with other health animal care taker (when not separately reported), Documenting clinical information in the electronic or other health record, and Independently interpreting results (not separately reported) and/or communicating results to the patient/family/caregiver. Keep up with basic health maintenance including an annual physical examination with your primary physician, appropriate vaccinations (influenza, pneumonia, new shingles vaccination), and other appropriate testing (e.g. EGD, colonoscopy etc). This report was dictated using Nordic[employer] and is subject to voice recognition errors. Please excuse any unusual inaccuracies. My diagnostic impression and treatment plans were discussed at length with the patient. All side effects as well as drug-drug interactions and risks discussed at length. Ample opportunity was offered and encouraged to ask questions during this visit and patient appreciated the answers given by me and verbzalised statisfcation in the answers given. Huy Ladd MD Keg Inspector, Division of Cardiology [facility] [employer] 2024-04-06 10:30:31 Associated Order(s): CONSULT BOOKKEEPER RECEPTIONIST-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 Pt will dc home today.. 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 He has been followed by [facility] cardiology with extensive cardiac workup. He has been admitted multiple times with hypertensive urgency and chest pain. LHC in 07/2020 showed no significant CAD. He underwent 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-D. He was admitted to [facility] in 10/2021 for acute ischemic stroke deemed to be secondary to Afib. Eliquis was started. On May 28, 2022 he underwent right heart cath and successful placement of CardioMEMS heart failure monitor device in the left pulmonary artery. Right heart cath showed elevated filling pressures and pulmonary pressure. This time he presented to [facility] with chest pain and dyspnea. He left [facility]pc facility and now stays home. Chest x-ray [...] N/A 02/19/2017 Surgeon: Fran Canchola MD; Location: [facility] OR Location ESOPHAGOGASTRODUODENOSCOPY N/A 07/20/2019 Surgeon: Maddi Ballesteros MD; Location: [facility] OR [facility] ESOPHAGOGASTRODUODENOSCOPY N/A 04/03/2021 Surgeon: Fran Trinh MD; [...] tablet by mouth in the morning. Lancets [facility] Check sugars 1 times a day. Dx [...] History Narrative Lives in an apt in [place], [place] himself. Social Determinants of Health Financial [...] as mentioned in HPI PHYSICAL EXAMINATION Vitals: 04/04/24 2020 04/04/24 2318 04/05/24 0315 04/05/24 0717 BP: (!) 140/106 (!) 132/92 117/73 125/75 Pulse: 72 67 65 68 Resp: 24 18 16 Temp: 36.2 ?C (97.1 ?F) 36.1 ?C [...] emergency Presence of cardiac resynchronization therapy defibrillator (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-D) Morbid obesity Acute on chronic HFrEF--CXR showed [...] Morbid obesity--discussed diet and weight loss. S/p 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-D. Thank you for allowing us to participate in the care of your patient. Please feel free to contact us for any questions or if we can be of further assistance. Cornelia Sanderson MD, [facility], NESTOR Die Cutter Division of Cardiovascular Medicine [facility] T [facility] - Health History and Physical Notes Date/Time Note Provider Source 2024-10-01 09:44:09 [facility] Cardiac IMU Admission History & Physical Date of Service: 10/01/2024 Time: 9:44 AM Patient's Name: Yunier Puente Patient's Patient's : Date of Admission: 09/30/2024 Problem List Active Problems: There are no active Hospital Problems. Assessment & Plan Assessment Yunier Puente (real name Bryan Parada ) is a 58 year old male with PMHx of chronic combined HFrEF (5-10%, s/p 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-D), NICM (nonobstructive cath 2019), afib (on Eliquis), CVA (cardioembolic 2021), HTN, HLD, T2DM, CKD3, gout, PRAVEEN (on CPAP) who presented to ED for 1 day of chest pain. S/p nitroglycerin x2 and aspirin load prior to arrival. Trop 166 --> 172. EKG with ventricular paced rhythm. Chest pain is reproducible. Found to be volume overloaded with hypertension to SBP 160s. 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 2019: nonobstructive - [facility] 2023: RA mean 6mmHg RV 37/10 mmHg PA 39/22 mmHg (mean PA 28 mmHg) PCWP mean 17 mmHg CO 3.71 CI 1.48 - S/p lasix 40 IV in ED - Home meds: Amiodarone, Eliquis, atorva, jardiance 10, lisinopril 5, metoprolol XL 25, aldactone 25 - Trop 166 --> 172 --> 88 - BNP 833 PLAN: > Device interrogation > TTE > Aspirin 81 > Atorvastatin 80 > Hydralazine 10 > Isordil 5 > Hold jardiance, lisinopril, metoprolol, aldactone due to GIUSEPPE and c/f acute HF exacerbation > Bumex 2mg IV BID #Reproducible Chest Pain - Likely MSK PLAN: > Lidocaine patch > Tylenol Neuro/Psych: #Hx of CVA (2021, cardioemblic) #L Arm Numbness - Patient reports left arm numbness for several days, he states that his prior stroke presented with left arm numbness but his deficits had resolved previously - May be recrudescence vs subacute stroke - CTH no acute pathology PLAN: > MRI brain > aspirin and atorvastatin as above #Mood Disorder > Continue buspirone 5mg BID Respiratory: #Pulmonary Edema #DELGADO - Patient reporting several weeks of worsening DELGADO - Saturating well on room air - CXR: Enlarged cardiac silhouette with pulmonary vascular congestion and interstitial pulmonary edema. PLAN: > Diuresis as above Renal/Electrolytes: #GIUSEPPE on CKD3 - Cr 1.6 (baseline 1.4 in 08/2024) - Likely cardiorenal PLAN: > Strict I&Os > Diuresis as above > Trend Cr GI/Nutrition: - No acute concerns PLAN: > Heart healthy diet > Miralax, senna PRN Endocrine: #T2DM PLAN: > A1c, TSH > SSI Infectious Disease: - No acute concerns Heme/Onc: - No acute concerns MSK/Skin: - No acute concerns PLAN: > PT/OT consulted Active Consultants: None ICU Quality Measures Code Status: Code Status: None Specified=Full Code Drips (gtt): None DVT: This patient does not have an active medication from one of the medication groupers. Diet: Adult Diet Heart Healthy Bowel: Miralax, senna PRN PUD Prophylaxis: Home PPI Lines: IV Access: Peripheral IV 10/01/24 Left Antecubital (Active) , Urinary Catheter: , Drain(s): , NG Tube: , and Dialysis Catheter(s): PT/OT: Consulted Emergency Contact: No patient contacts matched the search criteria. Dispo: CCU pending clinical improvement This patient was seen and staffed with attending physician, Dr. Valverde. See the attending attestation for further details and final recommendations. Chalino Costello MD [facility] | [facility] Internal Medicine, PGY-2 9:44 AM 10/01/24 Reason for CCU Admission: HF exacerbation, chest pain History Obtained From: Patient Patient identified with 2 identifiers: Name/MRN History of Present Illness Yunier Puente (real name Bryan Parada ) is a 58 year old male with PMHx of chronic combined HFrEF (5-10%, s/p 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-D), NICM (nonobstructive cath 2019), afib (on Eliquis), CVA (cardioembolic 2021), HTN, HLD, T2DM, CKD3, gout, PRAVEEN (on CPAP) who presented to ED for 1 day of chest pain. S/p nitroglycerin x2 and aspirin load prior to arrival. Patient reports that he was trying to sleep yesterday night and started experiencing mid sternal chest pain with associated diaphoresis and left arm numbness. He has had recent worsening DELGADO for the past several weeks and was seen by his outpatient reservation manager Dr. Tiffany Arellano ([facility]) on 09/29/24. No changes were made to medications. Patient reports compliance with all home meds. He takes his furosemide as prescribed but has noticed decreasing UOP recently. Denies fever, chills, nausea, vomiting, diarrhea, constipation, LE edema. He lives alone. Had a friend call EMS for him when he was having his chest pain. He denies tobacco use and illicit drug use. Recent hospital admission 08/2024 for atrial flutter s/p ablation 08/2024. History Past Medical History: No past medical history on file. Past Surgical History: Past Surgical History: Procedure Laterality Date CT ANGIOGRAM CHEST - AORTA 09/30/2024 CT ANGIOGRAM CHEST - AORTA 09/30/2024 [facility] CT Social History: Social History Substance and Sexual Activity Drug Use Not on file Social History Tobacco Use Smoking Status Not on file Smokeless Tobacco Not on file Social History Substance and Sexual Activity Alcohol Use Not on file Family History: No family history on file. Allergies: No Known Allergies Home Medications: No current outpatient medications ROS: See HPI Objective Vital Signs Current: Temp (24hrs), Av.9 ?C (98.5 ?F), Min:36.9 ?C (98.4 ?F), Max:36.9 ?C (98.5 ?F) BP (!) 142/103 | Pulse 74 | Temp 36.9 ?C (98.5 ?F) | Resp 18 | Ht 1.803 m (5' 11") | Wt 95.3 kg (210 lb) | SpO2 98% | BMI 29.29 kg/m? on 24 Hour: Systolic (24hrs), Av , Min:137 , Max:149 Diastolic (24hrs), Av, Min:92, Max:107 BP Min: 137/92 Max: 149/107 Temp Min: 36.9 ?C (98.4 ?F) Max: 36.9 ?C (98.5 ?F) Pulse Min: 74 Max: 86 Resp Min: 16 Max: 18 SpO2 Min: 94 % Max: 98 % Height Min: 180.3 cm (5' 11") Max: 180.3 cm (5' 11") Weight Min: 95.3 kg (210 lb) Max: 95.3 kg (210 lb) could not be evaluated. This SmartLink does not work with rows of the type: Intake/Output: No intake/output data recorded. No intake or output data in the 24 hours ending 10/01/24 0944 Net intake/output since admission: PHYSICAL EXAM Gen: NAD, resting in bed HEENT: L prosthetic eye, R pupil round and reactive, nares patent, MMM Neck: supple neck CV: RRR, no murmurs, reproducible midsternal chest pain Lung: Normal work of breathing, CTAB, on room air Abd: Soft, nt/nd Ext: 2+ radial pulse, no edema noted Neuro: Aox3, LUE strength 4/5, RUE 5/5 (patient says this has been going on for several days) Skin: warm, well perfused, no jaundice, non-erythematous Psych: Appropriate mood and congruent affect SCHEDULED HOSPITAL MEDICATIONS Potassium chloride, 40 mEq, Oral, Once PRN Medications: Drips: Lab Results: Lab Results Component Value Date WBC 4.70 09/30/2024 Hgb 13.8 09/30/2024 Hct 43.9 09/30/2024 Lab Results Component Value Date Sodium Lvl 140 09/30/2024 Potassium Lvl 3.0 (LL) 09/30/2024 CO2 Lvl 26.6 09/30/2024 Chloride Lvl 103 09/30/2024 BUN 19 09/30/2024 Phosphorus Lvl 3.6 09/30/2024 Lab Results Component Value Date ALT 25 09/30/2024 AST 41 (H) 09/30/2024 Lab Results Component Value Date Prothrombin Time (PT) 13.5 09/30/2024 PTT 25.6 09/30/2024 INR 1.01 09/30/2024 Imaging: CT angiogram chest EXAM: CTA CHEST WITH CONTRAST DATE: 09/30/2024 23:17 INDICATION: CP, AMS ADDITIONAL INFORMATION: None. COMPARISON: Chest x-ray from the same day. TECHNIQUE: Volumetric CTA of the chest is acquired following intravenous administration of contrast. Axial, coronal and sagittal images, including MIPS, are provided. FINDINGS: Welfare Eligibility Worker: Noncontributory. VASCULAR: Aorta: No aneurysm, dissection, penetrating ulcer, or rupture identified. Measurements are as follows: Aortic root: 3.5rrrrrr cm Ascending aorta at the level of the RPA: 3.5 cm Aortic arch: 2.9 cm Descending aorta at the level of the RPA: 2.5 cm Descending aorta at the hiatus: 2.4 cm Abdominal aorta at the level of the renal arteries: 2.3 cm Thoracic arterial anatomy: Great vessels: Conventional. Pulmonary arteries: Enlarged with Main Pulmonary Artery measuring 3.6 cm Lower Neck: Mild heterogenous and enlarged thyroid gland. Heart, mediastinum and pericardium: Left subclavian approach AICD with distal leads in the right atrium, right ventricle and coronary vein. Cardiomegaly. CardioMEMS device in the left PA is noted. There is no pericardial effusion. Faint LAD coronary artery calcifications. Airways, Lungs and Pleura: Airways are patent. Mild central bronchial wall thickening. There is minimal thickening of the interlobular septa. Lingular and left lower lobe subsegmental atelectasis and groundglass opacities. Other scattered areas of subsegmental atelectasis. No pleural effusion or pneumothorax. Bones and Soft Tissues: Age related thoracic spine spondylosis. No acute or suspicious abnormality. There is bilateral gynecomastia. Upper abdomen: Mild bilateral perinephric fat stranding. IMPRESSION: 1. No evidence of aortic aneurysm or acute aortic syndrome. 2. Cardiomegaly and evidence of pulmonary hypertension. 3. Faint LAD coronary atherosclerotic calcifications. 4. Lingular and left lower lobe subsegmental atelectasis with postinflammatory changes. 5. Central bronchial wall thickening with minimal interstitial edema. 6. Additional incidental findings as described above. Report finalized by: Rosales Pollock MD 10/01/2024 6:29 CT BRAIN WO IV CONTRAST EXAM: CT BRAIN WITHOUT CONTRAST DATE: 09/30/2024 23:17 INDICATION: AMS COMPARISON: None. TECHNIQUE: Axial CT images of the brain were obtained. Sagittal and coronal reformats. IV contrast: None DLP: Refer to CT protocol form FINDINGS: There is no edema, hemorrhage, mass lesion or other acute intracranial abnormality. The ventricles and sulci are enlarged from chronic brain parenchymal volume loss. Periventricular white matter hypoattenuation is nonspecific but likely represents chronic microvascular ischemic changes. Chronic appearing fracture deformity of the bilateral nasal bones, right lamina papyracea, and bilateral maxillary sinuses. Left orbital prosthesis. Partial opacification of the right maxillary sinus. IMPRESSION: * No acute intracranial abnormality. * Chronic brain parenchymal volume loss and microvascular ischemic changes. Report finalized by: Berta West MD 09/30/2024 23:58 Cosigned by Milan Valverde MD at 10/02/2024 12:03 AM BUNDLE HELPER LE HELPER LE HELPER Associated attestation - Milan Valverde MD - 10/02/2024 12:03 AM BUNDLE HELPER The patient was seen and examined with the resident and/or fellow. The relevant lab results, imaging and EKGs were personally reviewed, and the medications were reconciled. I agree with above mentioned assessment and plan. Annika Fry 2024-08-18 22:41:00 [facility] Hospitalist Admission H&P Date of Service: 08/18/2024 CHIEF COMPLAINT: Patient presents with persistent chest pain along with shortness of breath HISTORY OF PRESENT ILLNESS Bryan Parada is a 58 year old male who presents with chest pain and shortness of breath. Patient has a history of cardiomyopathy with his last echocardiogram revealing an ejection fraction of 5 to 10% with a small left ventricular thrombus. Patient had a transesophageal echocardiogram a week ago as well. Patient also had a freely mobile filamentous structure attached to the pacemaker lead which was about 1 cm in size. Patient had an aneurysmal septum with reduced systolic functioning. Patient had moderate tricuspid regurgitation. Patient's blood pressure was elevated in the ER, with a systolic blood pressure 150s and diastolic blood pressure 110s. However, the blood pressure has improved. Patient's troponin was significantly elevated bated. Patient akash has a significant cardiomyopathy and will be admitted to the ICU. Patient is long-term prognosis is poor especially with his poor compliance with his treatment regimen. Will consult cardiology, and will give further treatment recommendations.. PAST MEDICAL HISTORY Past Medical History: Diagnosis [...] and unspecified hyperlipidemia Stroke Uncontrolled hypertension 05/03/2015 PAST SURGICAL HISTORY Past Surgical History: Procedure Laterality Date COLONOSCOPY N/A 02/19/2017 Surgeon: Fran Canchola MD; Location: [facility] OR Location ESOPHAGOGASTRODUODENOSCOPY N/A 07/20/2019 Surgeon: Maddi Ballesteros MD; Location: [facility] OR Location ESOPHAGOGASTRODUODENOSCOPY N/A 04/03/2021 Surgeon: Fran Trinh MD; Location: [facility] ([facility]) OR Location JOINT SURGERY Right 11/2016 Right knee PACEMAKERS INSERTION ALLERGIES Allergies Allergen Reactions Imdur [Isosorbide Mononitrate] Other - See comments Severe hypotension, likely from severe LVH per Dr. Sanderson. MEDICATIONS Current home medication list reviewed: Current Discharge Medication List STOP taking these medications amiodarone 200 mg tablet Comments: Reason for Stopping: furosemide 40 mg tablet Comments: Reason for Stopping: atorvastatin 80 mg tablet Comments: Reason for Stopping: lisinopriL 5 mg tablet Comments: Reason for Stopping: metoprolol succinate XL 25 mg 24 hr tablet Comments: Reason for Stopping: apixaban 5 mg tablet Comments: Reason for Stopping: busPIRone 5 mg tablet Comments: Reason for Stopping: empagliflozin (JARDIANCE) 10 mg tablet Comments: Reason for Stopping: gabapentin 100 mg capsule Comments: Reason for Stopping: omeprazole 40 mg capsule Comments: Reason for Stopping: spironolactone (ALDACTONE) 25 mg tablet Comments: Reason for Stopping: methocarbamoL 500 mg tablet Comments: Reason for Stopping: allopurinoL 300 mg tablet Comments: Reason for Stopping: blood sugar diagnostic strip Comments: Reason for Stopping: Blood-Glucose Meter Kit Comments: Reason for Stopping: Lancets Misc Comments: Reason for Stopping: FAMILY HISTORY Family History Problem Relation Age of Onset CHF (congestive heart failure) Mother Depression Mother Hypertension Mother Diabetes Mother Diabetes Father Hypertension Father Heart Father Heart Sister SOCIAL HISTORY Social History Socioeconomic History Marital status: Single Number of children: 2 Highest education level: High school graduate Occupational History Occupation: Disabled Comment: SSDI Tobacco Use Smoking status: Never Passive exposure: Past Smokeless tobacco: Never Vaping Use Vaping status: Never Used Substance and Sexual Activity Alcohol use: Not Currently Comment: 1 cup of whiskey but last dirnk in December Drug use: Never Sexual activity: Yes Partners: Male, Female control/protection: Condom Social History Narrative Lives in an apt in [place], [place] himself. Social Determinants of Health Financial Resource Strain: Medium Risk (04/13/2024) Overall Financial Resource Strain (CARDIA) Difficulty of Paying Living Expenses: Somewhat hard Food Insecurity: No Food Insecurity (08/11/2024) NCSS - Food Insecurity Worried About Running Out of Food in the Last Year: No Ran Out of Food in the Last Year: No Transportation Needs: No Transportation Needs (08/11/2024) NCSS - Transportation Lack of Transportation: No Physical Activity: Insufficiently Active (04/13/2024) Exercise Vital Sign Days of Exercise per Week: 3 days Minutes of Exercise per Session: 40 min Social Connections: Unknown (04/06/2024) Social Connection and Isolation Panel [NHANES] Frequency of Communication with Friends and Family: More than three times a week Marital Status: Never Housing Stability: Not At Risk (08/11/2024) NCSS - Housing/Utilities Has Housing: Yes Worried About Losing Housing: No Unable to Get Utilities: No REVIEW OF SYSTEMS 10 systems negative except per HPI PHYSICAL EXAMINATION BP (!) 134/94 | Pulse 75 | Temp 37 ?C (98.6 ?F) (Oral) | Resp 19 | Ht 1.88 m (6' 2") | Wt 127.9 kg (282 lb) | SpO2 97% | BMI 36.21 kg/m? General: No acute distress HEENT: Normal oral mucosa, anicteric sclerae, NCAT Cardiovascular: RRR with systolic ejection murmur 2/6 Lungs: Symmetric expansion, clear bilaterally Abdomen: Soft, NTND Musculoskeletal: No synovitis, normal muscle mass Genitourinary: Deferred Skin: No rash, no skin lesions Extremities: No clubbing, no cyanosis, bilateral lower extremity edema Neuro: AAOx3, no focal deficits Psych: Normal affect LABS - reviewed pertinent labs as below: CBC BMP PT/INR WBC (10*3/?L) Date Value 08/18/2024 5.38 NA (mmol/L) Date Value 08/18/2024 138 No results found for: "PT" RBC (10*6/?L) Date Value 08/18/2024 5.44 K (mmol/L) Date Value 08/18/2024 3.9 INR (no units) Date Value 08/09/2024 1.1 PLT (10*3/?L) Date Value 08/18/2024 172 CALCIUM (mg/dL) Date Value 08/18/2024 9.0 HGB (g/dL) Date Value 08/18/2024 13.9 CL (mmol/L) Date Value 08/18/2024 106 aPTT HCT (%) Date Value 08/18/2024 44.6 BUN (mg/dL) Date Value 08/18/2024 24 (H) APTT Patient (Seconds) Date Value 08/12/2024 78 (H) CREATININE (mg/dL) Date Value 08/18/2024 1.48 (H) IMAGING - reviewed, pertinent results as below: Hospital Encounter on 08/18/24 XR CHEST 1 VW Narrative Exam: Chest (1 View), 08/18/2024 7:30 PM. Ordering Physician: JESSE SOLIZ. History: chest pain . Technique: One view of the chest. Comparison: Chest radiograph 08/09/2024. Findings: The right lung appears clear. Persistent opacities in the left lung base. No pneumothorax. Cardiac silhouette remains enlarged but stable. Left-sided AICD. No acute osseous finding. Impression Impression: 1. No acute cardiopulmonary finding. 2. Stable cardiomegaly. RL: 3457 End of Report SSMENT: 1. NSTEMI in a patient with cardiomyopathy with an ejection fraction of 5 to 10% 2. Uncontrolled hypertension 3. Patient with type 2 diabetes 4. Patient with history of gout 5. History of atrial fibrillation PLAN: 1. Non-STEMI in a patient with cardiomyopathy with an ejection fraction of 5 to 10%; continue with antiplatelet therapy and statin therapy along with anticoagulation. Continue with diuretics with Lasix and Aldactone. Cardiology consulted. Long-term prognosis poor. Continue with current management. 2. Uncontrolled hypertension; resume antihypertensives and strict blood pressure control. 3. Type 2 diabetes; strict blood sugar control at this time and check hemoglobin A1c; resume Jardiance 4. History of gout; continue with allopurinol 5. History of atrial fibrillation; continue with amiodarone and Eliquis DVT prophylaxis: eliquis Stress ulcer prophylaxis: pantoprazole Code status: FULL Advanced Care Planning (Z71.89) Above assessment and plan discussed at length with patient, patient expressed full understanding. Questions and concerned addressed. Surrogate decision maker: NO Level of care expected after discharge: HOME Time spent: 3 minutes discussing the advanced care plan Smoking Cessation: (Z71.6) Tobacco user?: NO Patient will require inpatient stay of 2 midnights or more given high risk of morbidity and mortality. 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 Patient reports yesterday his home health nurse came by to check up on him. At that time he reported to her sternal chest pain, stabbing in quality, without radiation. Noted to be hypertensive and tachycardic on vitals check so his nurse told him to go to the ER. Reports chest pain is worse when he lays down and is reproducible to palpation. Baseline DELGADO after 1 block and cannot complete a flight of stairs. Denies chest pain prior to this event, and denies exertional angina; only experiences DELGADO. Denies SOB at rest. Reports orthopnea and palpitations. Reports adherence to medications. Tobacco use never. No current alcohol or illicit substance use. Prior to transfer vitals WNL satting 94% on 2L. Labs showed trop 0.049 yesterday without further trend, nt pro 3490 --> 5580 (BL 1580, but patient with GIUSEPPE), Cr 1.76 --> 2.18 (BL 1.4-1.5), TSH and LFT's WNL, COVID/FLU/RSV negative, UDS c/w opiate consumption (Tylenol . Started on amiodarone drip without resolution of aflutter. Transferred due remodeling of JOSE room at [facility], so could not perform DCCV there. Past medical history: has a past medical history of ACC/AHA stage C congestive heart failure, Adrenal mass, Arthritis, Asthma, Cataract, Chronic combined systolic and diastolic CHF, NYHA class 4 (09/22/2015), Diet-controlled diabetes mellitus (05/03/2015), Diverticulosis large intestine w/o perforation or abscess w/o bleeding (02/19/2017), Illiteracy, LVH (left ventricular hypertrophy) (09/22/2015), Metabolic syndrome (06/23/2015), Nonischemic cardiomyopathy (09/22/2015), Obesity (06/23/2015), PRAVEEN (obstructive sleep apnea) (06/23/2015), Other and unspecified hyperlipidemia, Stroke, and Uncontrolled hypertension (05/03/2015). Past surgical history: has a past surgical history that includes joint surgery (Right, 11/2016); colonoscopy (N/A, 02/19/2017); esophagogastroduodenoscopy (N/A, 07/20/2019); pacemakers insertion; and esophagogastroduodenoscopy (N/A, 04/03/2021). Social history: reports that he has never smoked. He has been exposed to tobacco smoke. He has never used smokeless tobacco. He reports that he does not currently use alcohol. He reports that he does not use drugs. Family history: family history includes CHF (congestive heart failure) in his mother; Depression in his mother; Diabetes in his father and mother; Heart in his father and sister; Hypertension in his father and mother. Allergies: Allergies Allergen Reactions Imdur [Isosorbide Mononitrate] Other - See comments Severe hypotension, likely from severe LVH per Dr. Sanderson. MEDICATIONS No current facility-administered medications on file prior to encounter. Current Outpatient Medications on File Prior to Encounter Medication Sig Dispense Refill cephALEXin 500 mg capsule Take 1 capsule by mouth 4 (four) times daily for 10 days. 40 capsule 0 atorvastatin 80 mg tablet Take 1 tablet by mouth at bedtime. (Patient taking differently: Take 0.5 tablets by mouth at bedtime.) 90 tablet 1 furosemide 80 mg tablet Take 1 tablet by mouth every morning and evening. 120 tablet 1 lisinopriL 5 mg tablet Take 1 tablet by mouth in the morning. 90 tablet 1 metoprolol succinate XL 25 mg 24 hr tablet Take 1/2 (one-half) tablet by mouth in the morning. 90 tablet 0 apixaban 5 mg tablet Take 1 tablet by mouth in the morning and 1 tablet in the evening. Indications: atrial fibrillation 180 tablet 3 aspirin 81 mg chewable tablet Take 1 tablet by mouth in the morning. 90 tablet 3 busPIRone 5 mg tablet Take 1 tablet by mouth in the morning and 1 tablet in the evening. 180 tablet 3 empagliflozin (JARDIANCE) 10 mg tablet Take 1 tablet by mouth in the morning. 90 tablet 3 gabapentin 100 mg capsule Take 1 capsule by mouth in the morning and 1 capsule at noon and 1 capsule in the evening. 90 capsule 5 omeprazole 40 mg capsule Take 1 capsule by mouth in the morning. 90 capsule 3 spironolactone (ALDACTONE) 25 mg tablet Take 1 tablet by mouth in the morning. 90 tablet 2 allopurinoL 300 mg tablet Take 1 tablet by mouth every morning. 90 tablet 3 lidocaine-prilocaine 2.5-2.5 % cream Apply to area(s) 2 (two) times daily. 30 g 1 methocarbamoL 500 mg tablet Take 1 tablet by mouth 3 (three) times daily as needed for Pain (scale 7-10) (Knee pain). 30 tablet 1 blood sugar diagnostic strip Check blood sugar 2 times a day. E11.9. Brand per insurance. 1 Strip 6 Blood-Glucose Meter Kit Check sugars 2 times a day. Dx. Code E11.9 Brand per Insurance 1 Kit [facility] sugars 1 times a day. Dx Code E11.9. Brand per insurance. 100 Each 11 REVIEW OF SYSTEMS Per HPI. PHYSICAL EXAMINATION Vitals: 08/10/24 1700 08/10/24 1840 08/10/24 2040 08/10/24 2100 BP: 103/78 119/82 (!) 105/92 99/80 Pulse: 97 70 70 70 Resp: 15 19 17 14 Temp: 36.6 ?C (97.9 ?F) TempSrc: SpO2: 94% 94% 97% 100% Weight: Height: General: In NAD, pleasant HEENT: R eye gaze deficit noted Lungs: CTAB Cardio: Regular S1 and S2 at time of examination, no m/g/r Abdomen: soft, NT ND Extremities: No edema, warm to touch Neuro: BUE and BLE strength 12/05 LABS - reviewed pertinent labs as below: LDL: 105 on 07/2024 A1C: 5.9 on 07/2024 Iron 49 in 2021 UDS in past c/w opioid use IMAGING - reviewed, pertinent results as below: EKG/Telemetry: aflutter with V paced rhythm Echocardiogram: 07/14/2024 Left Ventricle: Left ventricle is severely dilated. Dilated by LV volume index calculation. Normal wall thickness. Severely increased ventricular mass. There is eccentric hypertrophy. Severe global hypokinesis present. Severely reduced systolic function with a visually estimated EF of 5 - 10%. There is grade 2 diastolic dysfunction. Elevated left ventricular filling pressure. Cannot exclude small apical thrombus. Right Ventricle: Right ventricle is mildly dilated. Normal systolic function. TAPSE is 1.83 cm. TDI-derived tricuspid annular systolic velocity (TDI S') is 11.9 cm/s. There is a pacemaker lead in the right ventricle. Left Atrium: Left atrium is moderately dilated. Left atrium volume index is 45.3 mL/m2. Tricuspid Valve: Tricuspid valve structure is normal. Mild transvalvular regurgitation. Right ventricular systolic pressure is 40-45 mmHg. No stenosis. IVC/SVC: IVC diameter is less than or equal to 21 mm and decreases less than 50% during inspiration; therefore the estimated right atrial pressure is intermediate (~8 mmHg). Cardiac catheterization: [facility]/ selective coronary angiography 08/02/2020 Coronary Dominance: right Left Main: Angiographically normal LAD: Large vessel, Luminal irregularities LCX: Large vessel, Luminal irregularities RCA: Large vessel, Luminal irregularities C 07/19/2024 RA mean 6 mmHg RV 37/10 mmHg PA 39/22 mmHg (mean PA 28 mmHg) PCWP mean 17 mmHg CO 3.71 L/min (Jennifer's method) CI 1.48 L/min/m2 (Jennifer's method) CO 3.623 L/min (Thermodilution technique) CI 1.45 L/min/m2 (Thermodilution technique) TPG 11 mmHg PVR 3.03 Posey Units PA sat: 55 % RA sat: 56% Post-Procedure Sedation Addendum No sedation was given Complications: None Impression: Mildly elevated filling pressures Low CO/CI CHART REVIEW: reviewed Hospital course from 07/31/2024 Bryan Parada is a 58 year old male w PMH of obesity, HTN, DM II, HLD, CAD, NICM, chronic combined CHF s/p AICD, asthma, CKD III who presents evaluation of his pacemaker incision site after the generator was exchanged on 07/18/2024 . EP consulted, recommending holding Eliquis x5 days and Keflex x10 days. Patient afebrile, without leukocytosis. Orthostatic vital signs negative . P atient HDS for discharge home with follow up with device clinic in 10 days and PCP. 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 Hypotensive on presentation so will do A line and consider pressor support, hold toprol. Reason for transfer is due to inability to perform JOSE DCCV at [facility] since the operating room is being remodeled. Troponins only obtained on admission and not trended so will start trend while here. Lactic to evaluate for shock and consider alternative rhythm control if in shock given low EF and amiodarone's negative inotropic effect. EP consult in AM to consider cardioversion however patient with severe low EF and moderately enlarged atrium so ablation may be favorable instead. On keflex due to bleeding from pacemaker after generator exchange last month, will complete course. - Admit to CCU - Strict I&O's - 2L Fluid restriction - Cardiac diet - C/w Telemetry - O2 per protocol - Keep K >4, Mg>2 - Trend trops to peak - Lactic acid, iron/ferritin - ASA 81mg qd - Lipitor 80 QHS - C/w keflex course EOT 08/12/2023 - Hold toprol due to hypotension - Holding home lasix 80 BID - Holding home jardiance 10 QD - Holding lisinopril 5 QD - C/w heparin drip, holding eliquis - EP consult in AM for JOSE +/- DCCV vs ablation - NPO past MN in case of procedure in AM - Consider device interrogation - Robaxin PRN - Arterial line placement refused by patient, will cycle BP Q15min - Consider pressor support pending A line reading - C/w amiodarone drip, consider alternative if in shock Resp PRAVEEN on CPAP Patient on 2L NC, however satting 97-100% so will wean to RA. - CPAP at night - Wean O2 to RA Neuro/psych Anxiety CVA (cardioembolic 2021) Prior stroke from afib in past. No focal deficits on exam today. CTM. -Home gabapentin 100 TID -Home buspirone 5 BID Renal GIUSEPPE on CKD 3 Gout GIUSEPPE on admission that is worsening. Aldactone was not held so will hold and c/w diuretic holiday. -Holding aldactone -Trend Cr -Home allopurinol 300 QD Endo T2DM (A1c 5.9 07/2024) -Monitor BG via BMP, start ssi if significantly elevated FEN/GI GERD Nausea - c/w pantoprazole 40 QD - Zofran/compazine PRN ID No concerns Heme/Onc No concerns Other Pain: gabapentin, norco, tylenol, lidocaine cream DVT prophylaxis: heparin gtt Bowel reg: Senokot BL creatinine: 1.4-1.5 Dispo: CCU Prognosis: Guarded Code Status: Full Jose Pan MD Internal Medicine, PGY-2 [employer] Team LE HELPER Associated attestation - Juan Hernandez MD - 08/11/2024 2:13 PM BUNDLE HELPER I personally examined the patient and agree with Dr. Pan's note, assessment and plan as written. I actively participated in the decision-making process. I spent a total time of 79 minutes. The non-overlapping time spent for patient care includes: Pre-Charting, obtaining and/or reviewing separately obtained history (Case Everywhere and our own records), performing a full medically appropriate examination and/or evaluation, counseling and educating patient/family/caregiver, ordering not only medications but tests and/or procedures, independently interpreting prior/current results and communicating them to the patient and/or relative, ordering referrals and/or communicating with other health animal care taker (when not separately reported), documenting clinical information in the electronic or other health record, and care coordination (not separately reported). - continue amiodarone gtt. EP consult for possible ablation - titration of HF meds as tolerated - systemic AC. Gently diuresis. I have reviewed and verified the documentation for this encounter and assume responsibility for the services by signing the medical record. JUAN MATHIS MD, MSHA, FAHA, FAC, [facility], Advanced Heart Failure, LVAD & Transplant Service Date of service: 08/10/[address] [facility] 2024-08-09 21:11:38 MEDICINE MEGADC ADMIT H&P Date of Service: 08/09/2024 CHIEF COMPLAINT: Chest pain Subjective History of Present Illness 56 yo obese male with pmh of asthma, chronic systolic and diastolic congestive heart failure, D, divertiulosis, NICM, PRAVEEN, CVA, HTN, hx of chronically elevated troponins, hx of noncompliance, recurrent hospitalizations/ER visits who presents to the ED secondary to non-radiating chest pain that started hours prior to arrival. Associated symptoms: productive cough, nausea, vomiting, shortness of breath, palpitations PAST MEDICAL HISTORY Past Medical History: Diagnosis [...] N/A 02/19/2017 Surgeon: Fran Canchola MD; Location: [facility] OR Location ESOPHAGOGASTRODUODENOSCOPY N/A 07/20/2019 Surgeon: Maddi Ballesteros MD; Location: [facility] OR Location ESOPHAGOGASTRODUODENOSCOPY N/A 04/03/2021 Surgeon: Fran Trinh MD; Location: [facility] ([facility]) OR Location JOINT SURGERY Right 11/2016 Right knee PACEMAKERS INSERTION Family History Problem Relation Age of Onset CHF (congestive heart failure) Mother Depression Mother Hypertension Mother Diabetes Mother Diabetes Father Hypertension Father Heart Father Heart Sister ALLERGIES Allergies Allergen Reactions Imdur [Isosorbide Mononitrate] Other - See comments Severe hypotension, likely from severe LVH per Dr. Sanderson. MEDICATIONS No current facility-administered medications on file prior to encounter. Current Outpatient Medications on File Prior to Encounter Medication Sig Dispense Refill cephALEXin 500 mg capsule Take 1 capsule by mouth 4 (four) times daily for 10 days. 40 capsule 0 atorvastatin 80 mg tablet Take 1 tablet by mouth at bedtime. 90 tablet 1 furosemide 80 mg tablet Take 1 tablet by mouth every morning and evening. 120 tablet 1 lisinopriL 5 mg tablet Take 1 tablet by mouth in the morning. 90 tablet 1 metoprolol succinate XL 25 mg 24 hr tablet Take 1/2 (one-half) tablet by mouth in the morning. 90 tablet 0 apixaban 5 mg tablet Take 1 tablet by mouth in the morning and 1 tablet in the evening. Indications: atrial fibrillation 180 tablet 3 aspirin 81 mg chewable tablet Take 1 tablet by mouth in the morning. 90 tablet 3 busPIRone 5 mg tablet Take 1 tablet by mouth in the morning and 1 tablet in the evening. 180 tablet 3 empagliflozin (JARDIANCE) 10 mg tablet Take 1 tablet by mouth in the morning. 90 tablet 3 gabapentin 100 mg capsule Take 1 capsule by mouth in the morning and 1 capsule at noon and 1 capsule in the evening. 90 capsule 5 omeprazole 40 mg capsule Take 1 capsule by mouth in the morning. 90 capsule 3 spironolactone (ALDACTONE) 25 mg tablet Take 1 tablet by mouth in the morning. 90 tablet 2 lidocaine-prilocaine 2.5-2.5 % cream Apply to area(s) 2 (two) times daily. 30 g 1 methocarbamoL 500 mg tablet Take 1 tablet by mouth 3 (three) times daily as needed for Pain (scale 7-10) (Knee pain). 30 tablet 1 allopurinoL 300 mg tablet Take 1 tablet by mouth every morning. 90 tablet 3 blood sugar diagnostic strip Check blood sugar 2 times a day. E11.9. Brand per insurance. 1 Strip 6 Blood-Glucose Meter Kit Check sugars 2 times a day. Dx. Code E11.9 Brand per Insurance 1 Kit 0 Lancets Misc Check sugars 1 times a day. Dx Code E11.9. Brand per insurance. 100 Each 11 SOCIAL HISTORY Social History Socioeconomic History Marital status: Single Number of children: 2 Highest education level: High school graduate Occupational History Occupation: Disabled Comment: SSDI Tobacco Use Smoking status: Never Passive exposure: Past Smokeless tobacco: Never Vaping Use Vaping status: Never Used Substance and Sexual Activity Alcohol use: Not Currently Comment: 1 cup of whiskey but last dirnk in December Drug use: Never Sexual activity: Yes Partners: Male, Female control/protection: Condom Social History Narrative Lives in an apt in [place], [place] himself. Social Determinants of Health Financial Resource Strain: Medium Risk (04/13/2024) Overall Financial Resource Strain (CARDIA) Difficulty of Paying Living Expenses: Somewhat hard Food Insecurity: No Food Insecurity (08/01/2024) NCSS - Food Insecurity Worried About Running Out of Food in the Last Year: No Ran Out of Food in the Last Year: No Transportation Needs: No Transportation Needs (08/01/2024) NCSS - Transportation Lack of Transportation: No Physical Activity: Insufficiently Active (04/13/2024) Exercise Vital Sign Days of Exercise per Week: 3 days Minutes of Exercise per Session: 40 min Social Connections: Unknown (04/06/2024) Social Connection and Isolation Panel [NHANES] Frequency of Communication with Friends and Family: More than three times a week Marital Status: Never Housing Stability: Not At Risk (08/01/2024) NCSS - Housing/Utilities Has Housing: Yes Worried About Losing Housing: No Unable to Get Utilities: No REVIEW OF SYSTEMS Review of Systems Constitutional: Positive for fever. Negative for activity change, appetite change, chills, diaphoresis, fatigue and unexpected weight change. HENT: Negative. Eyes: Negative. Respiratory: Positive for cough and shortness of breath. Negative for apnea, choking, chest tightness, wheezing and stridor. Breasts: Negative. Cardiovascular: Positive for palpitations. Negative for chest pain and leg swelling. Gastrointestinal: Positive for nausea and vomiting. Negative for abdominal distention, abdominal pain, anal bleeding, blood in stool, constipation, diarrhea and rectal pain. Genitourinary: Negative. Musculoskeletal: Negative. Skin: Negative. Neurological: Negative. Psychiatric/Behavioral: Negative. Endocrine: Endocrine negative Objective PHYSICAL EXAMINATION Vitals: 08/09/24 1638 08/09/24 1700 08/09/24 1811 08/09/24 1900 BP: 128/90 (!) 110/94 (!) 115/99 (!) 112/93 BP Location: Left arm Pulse: 74 79 78 70 Resp: Temp: 36.7 ?C (98 ?F) 36.8 ?C (98.3 ?F) TempSrc: Tympanic Temporal Artery SpO2: 98% 97% 98% 99% Weight: 286 lb 9.6 oz (130 kg) Height: Physical Exam Vitals and nursing note reviewed. Constitutional: General: He is not in acute distress. Appearance: Normal appearance. He is not ill-appearing, toxic-appearing or diaphoretic. HENT: Head: Normocephalic and atraumatic. Right Ear: External ear normal. Left Ear: External ear normal. Nose: Nose normal. No congestion or rhinorrhea. Mouth/Throat: Mouth: Mucous membranes are moist. Pharynx: No oropharyngeal exudate or posterior oropharyngeal erythema. Eyes: General: No scleral icterus. Extraocular Movements: Extraocular movements intact. Conjunctiva/sclera: Conjunctivae normal. Pupils: Pupils are equal, round, and reactive to light. Cardiovascular: Rate and Rhythm: Normal rate and regular rhythm. Heart sounds: No murmur heard. No friction rub. No gallop. Pulmonary: Effort: Pulmonary effort is normal. No respiratory distress. Breath sounds: Normal breath sounds. No wheezing or rales. Chest: Chest wall: No tenderness. Abdominal: General: Abdomen is flat. Bowel sounds are normal. There is no distension. Palpations: Abdomen is soft. Tenderness: There is no abdominal tenderness. There is no guarding. Musculoskeletal: General: Normal range of motion. Cervical back: Normal range of motion and neck supple. Right lower leg: No edema. Left lower leg: No edema. Skin: General: Skin is warm and dry. Neurological: Mental Status: He is alert. Psychiatric: Mood and Affect: Mood normal. Behavior: Behavior normal. Thought Content: Thought content normal. Judgment: Judgment normal. LABS/IMAGING - reviewed XR CHEST 1 VW COMPARISON: No comparison available Ordering provider: MICHELLE MIRANDA CLINICAL INDICATIONS: cough TECHNIQUE: Appropriate radiographic technique and conforming to ALARA FINDINGS: Marked chronic cardiomegaly since 06/01/2022 with permanent transvenous pacemaker. Otherwise the lungs are clear and without acute chest disease. IMPRESSION 1. Marked chronic cardiomegaly 2. No acute chest disease EKG: sinus rhythm Assessment & Plan Bryan Parada is a 58 year old male with PMH as listed above, admitted to the hospital with: 1. Chest pain atypical/NSTEMI: So, far EKG and troponin are negative for an acute myocardial infarction. -- Will order pain control, oxygen, and aspirin. -- Will continue to trend the troponin -- Cardiology has been consulted. -- On heparin gtt 2. Atrial fibrillation with RVR: -- Will continue with amiodarone gtt 3. Hypertensive urgency: now more controlled -- Will continue with lisinopril, metoprolol, and spironolactone 4. Chronic systolic and diastolic congestive heart failure: -- Will resume outpatient therapy 5. Asthma: stable 6. Chronic kidney disease, Stage IV: likely due to over diuresis initially. Code Status: Full Code [facility] EMERGENCY PHYSICIAN STAFF [facility] 2024-07-31 19:01:37 Images from the original note were not included. Joana Rogers ADMIT H&P PCP: Brooks Barker Date of Service: 07/31/2024 CHIEF COMPLAINT: medical staff services manager problem HISTORY OF PRESENT ILLNESS Bryan Parada is a 58 year old male w PMH of obesity, HTN, DM II, HLD, CAD, NICM, chronic combined CHF s/p AICD, asthma, CKD III who presents for medical staff services manager problem. Patient presented to [facility] ED for evaluation of his pacemaker incision site after the generator was exchanged on 07/18/2024. Patient reported his pacemaker site started bleeding this morning. Patient reports associated dizziness and tiredness but denies trauma to the site.Of note, patient was seen in the ED for wound check on 07/28/2024. The lateral 1.5 cm of his pacemaker incision was found to be slightly open without any active drainage or bleeding, Dermabond was used for skin closure and discharged from ED with follow-up scheduled with cardiology. In the ED, BP 143/109, HR 102, RR 18, T 98.1?F, SpO2 98%. Upon arrival to [facility], patient is stable and AxO x4. Patient denies any dizziness, lightheadedness, chest pain, or shortness of breath. Patient continues to have mild bleeding from his pacemaker site however is hemodynamically stable. PAST MEDICAL HISTORY Past Medical History: Diagnosis [...] N/A 02/19/2017 Surgeon: Fran Canchola MD; Location: [facility] OR [facility] ESOPHAGOGASTRODUODENOSCOPY N/A 07/20/2019 Surgeon: Maddi Ballesteros MD; Location: [facility] OR [facility] ESOPHAGOGASTRODUODENOSCOPY N/A 04/03/2021 Surgeon: Fran Trinh MD; Location: Endoscopy ([facility]) OR Location JOINT SURGERY Right 11/2016 Right knee PACEMAKERS INSERTION Family History Problem Relation Age of Onset CHF (congestive heart failure) Mother Depression Mother Hypertension Mother Diabetes Mother Diabetes Father Hypertension Father Heart Father Heart Sister ALLERGIES Allergies Allergen Reactions Imdur [Isosorbide Mononitrate] Other - See comments Severe hypotension, likely from severe LVH per Dr. Sanderson. MEDICATIONS No current facility-administered medications on file prior to encounter. Current Outpatient Medications on File Prior to Encounter Medication Sig Dispense Refill atorvastatin 80 mg tablet Take 1 tablet by mouth at bedtime. 90 tablet 1 furosemide 80 mg tablet Take 1 tablet by mouth every morning and evening. 120 tablet 1 lisinopriL 5 mg tablet Take 1 tablet by mouth in the morning. 90 tablet 1 metoprolol succinate XL 25 mg 24 hr tablet Take 1/2 (one-half) tablet by mouth in the morning. 90 tablet 0 apixaban 5 mg tablet Take 1 tablet by mouth in the morning and 1 tablet in the evening. Indications: atrial fibrillation 180 tablet 3 aspirin 81 mg chewable tablet Take 1 tablet by mouth in the morning. 90 tablet 3 busPIRone 5 mg tablet Take 1 tablet by mouth in the morning and 1 tablet in the evening. 180 tablet 3 empagliflozin (JARDIANCE) 10 mg tablet Take 1 tablet by mouth in the morning. 90 tablet 3 gabapentin 100 mg capsule Take 1 capsule by mouth in the morning and 1 capsule at noon and 1 capsule in the evening. 90 capsule 5 omeprazole 40 mg capsule Take 1 capsule by mouth in the morning. 90 capsule 3 spironolactone (ALDACTONE) 25 mg tablet Take 1 tablet by mouth in the morning. 90 tablet 2 methocarbamoL 500 mg tablet Take 1 tablet by mouth 3 (three) times daily as needed for Pain (scale 7-10) (Knee pain). 30 tablet 1 allopurinoL 300 mg tablet Take 1 tablet by mouth every morning. 90 tablet 3 blood sugar diagnostic strip Check blood sugar 2 times a day. E11.9. Brand per insurance. 1 Strip 6 Blood-Glucose Meter Kit Check sugars 2 times a day. Dx. Code E11.9 Brand per Insurance 1 Kit 0 Lancets Misc Check sugars 1 times a day. Dx Code E11.9. Brand per insurance. 100 Each 11 lidocaine-prilocaine 2.5-2.5 % cream Apply to area(s) 2 (two) times daily. 30 g 1 SOCIAL HISTORY Social History Socioeconomic History Marital status: Single Number of children: 2 Highest education level: High school graduate Occupational History Occupation: Disabled Comment: SSDI Tobacco Use Smoking status: Never Passive exposure: Past Smokeless tobacco: Never Vaping Use Vaping status: Never Used Substance and Sexual Activity Alcohol use: Not Currently Comment: 1 cup of whiskey but last dirnk in December Drug use: Never Sexual activity: Yes Partners: Male, Female control/protection: Condom Social History Narrative Lives in an apt in [place], [place] himself. Social Determinants of Health Financial Resource Strain: Medium Risk (04/13/2024) Overall Financial Resource Strain (CARDIA) Difficulty of Paying Living Expenses: Somewhat hard Food Insecurity: No Food Insecurity (07/14/2024) NCSS - Food Insecurity Worried About Running Out of Food in the Last Year: No Ran Out of Food in the Last Year: No Transportation Needs: No Transportation Needs (07/14/2024) NCSS - Transportation Lack of Transportation: No Physical Activity: Insufficiently Active (04/13/2024) Exercise Vital Sign Days of Exercise per Week: 3 days Minutes of Exercise per Session: 40 min Social Connections: Unknown (04/06/2024) Social Connection and Isolation Panel [NHANES] Frequency of Communication with Friends and Family: More than three times a week Marital Status: Never Housing Stability: Not At Risk (07/14/2024) NCSS - Housing/Utilities Has Housing: Yes Worried About Losing Housing: No Unable to Get Utilities: No REVIEW OF SYSTEMS (-)=Negative,(+)=Positive Per HPI PHYSICAL EXAMINATION Vitals: 07/31/24 1345 07/31/24 1600 07/31/24 1632 07/31/24 1751 BP: (!) 143/109 (!) 131/102 (!) 143/105 BP Location: Left arm Patient Position: Sitting Pulse: 102 97 98 101 Resp: 18 16 17 20 Temp: 36.7 ?C (98.1 ?F) 36.6 ?C (97.9 ?F) TempSrc: Oral SpO2: 98% 99% 100% 97% Weight: 127 kg (280 lb) Height: 1.88 m (6' 2") General: alert and oriented x 4 (person, place, date/time, and situation); no apparent distress HEENT: extraocular movements intact Lungs: clear to auscultation bilaterally Cardio: S1, S2 normal; no murmurs, rubs or gallops, regular rate and rhythm Extremities: no clubbing, cyanosis, or edema LABS/Imaging - reviewed pertinent labs as below: Reviewed. TTE 07/14/24 Left Ventricle: Left ventricle is severely dilated. Dilated by LV volume index calculation. Normal wall thickness. Severely increased ventricular mass. There is eccentric hypertrophy. Severe global hypokinesis present. Severely reduced systolic function with a visually estimated EF of 5 - 10%. There is grade 2 diastolic dysfunction. Elevated left ventricular filling pressure. Cannot exclude small apical thrombus. Right Ventricle: Right ventricle is mildly dilated. Normal systolic function. TAPSE is 1.83 cm. TDI-derived tricuspid annular systolic velocity (TDI S') is 11.9 cm/s. There is a pacemaker lead in the right ventricle. Left Atrium: Left atrium is moderately dilated. Left atrium volume index is 45.3 mL/m2. Tricuspid Valve: Tricuspid valve structure is normal. Mild transvalvular regurgitation. Right ventricular systolic pressure is 40-45 mmHg. No stenosis. IVC/SVC: IVC diameter is less than or equal to 21 mm and decreases less than 50% during inspiration; therefore the estimated right atrial pressure is intermediate (~8 mmHg). Generator Exchange 07/19/24 Device Characteristics: Device Characteristics: Pulse generator: Knomo Model G247 RA Lead: Biotronik Solia S53, P waves: 11.7 mV, Threshold 0.4 V@0.4msec, Impedance 633 ohms RV Lead: Biotronik Plexa SD 65/18, R-waves 9.1 mV, Threshold 0.7 V@0.4msec, Impedance 505 ohms LV Lead: Biotronik Sentus L85, R waves: 8.5 mV, Threshold 1.5 V@0.4msec, Impedance 483 ohms High Voltage Impedance: 61 ohms MRI Compatible Final Programming: DDDR 60-130 VT 1 150-180 Monitor VT2 180-210 ATP, Max Output Shocks VF 210+ Max Output Shocks Impression: Successful Bi-Ventricular ICD pulse Generator Change Out [facility] 07/19/24 RA mean 6 mmHg RV 37/10 mmHg PA 39/22 mmHg (mean PA 28 mmHg) PCWP mean 17 mmHg CO 3.71 L/min (Jennifer's method) CI 1.48 L/min/m2 (Jennifer's method) CO 3.623 L/min (Thermodilution technique) CI 1.45 L/min/m2 (Thermodilution technique) TPG 11 mmHg PVR 3.03 Posey Units PA sat: 55 % RA sat: 56% Impression: Mildly elevated filling pressures Low CO/CI CHART REVIEW: pertinent information as below: Hospital Course (07/13/24 -07/21/24) Bryan Parada is a 58 year old male with a PMH of obesity, HTN, DM II, HLD, CAD, NICM, chronic combined CHF s/p AICD, asthma, CKD III who presents for chest pain and DELGADO. Initial workup significant for elevated troponins with a peak of 0.339, hypertensive urgency, and elevated NTproBNP of 7200 2/2 HF exacerbation. Pt started on IV lasix for diuresis and NTG for CP with improvement. SOB improved with diuresis. EP was consulted for device interrogation and recommended generator replacement 07/18/24. V/Q scan 07/16 did not show evidence of PE. Underwent RHC on 07/19 with mildly elevated filling pressure and low CO/CI. Pt had hyperkalemia on several daily bmp's improved with lokelma. Lokelma not covered by insurance so d/c and K+ monitored on current GDMT dose, titrated appropriately. Pt with resolution of SOB and CP. Plan for OP EP evaluation as well as cardiac MRI. At this time, pt is medically optimized for discharge. ASSESSMENT/PLAN Bryan Parada is a 58 year old male with PMH as listed above, admitted to the hospital with: Chronic HFrEF s/p AICD (Ef 5% 05/15/2024) w/ diastolic dysfunction, NICM pAfib on Eliquis (CHADSVASC 5) Hypertension Non-obstructive CAD (2019) History of CVA Patient is a 58 year old male presenting for pacemaker wound. Patient with bloody drainage at pacemaker site with associated dizziness and lightheadedness. Currently patient is hemodynamically stable. Will need EP evaluation tomorrow AM regarding pacemaker. No current signs of infection. Will hold AC given possible procedure tomorrow. - Admit to White Team - Consult Electrophysiology - Hold AC in case of EP procedure - C/w ASA 81 mg daily - C/w Lipitor 80 mg daily - C/w PO Lasix 80 mg BID - C.w Lisinopril 5 mg daily - C/w Toprol XL 12.5 mg daily - C/w Spironolactone 25 mg daily - Hold home Jardiance - Obtain labs: CBC with diff, CMP, Mag, Troponin, NT-proBNP, aPTT, PT/INR - Diet: Cardiac, PPCLD at midnight - Activity: As tolerated - Vitals q4h, O2pp, telemetry monitoring - EKG Chronic conditions: CKD stage 3 T2DM (HgbA1c 5.9%) Gout Chronic conditions, continue with home medications. - SSI - C/w home allopurinol - C/w home gabapentin DVT prophylaxis: on hold for procedure tomorrow Pain: Tylenol Code Status: Full Code This note is preliminary. The plan of care will not be final until the faculty attestation is included. Will be staffed with day faculty tomorrow. Gian Maddox DO Internal Medicine, PGY-2 LE HELPER Associated attestation - Tio Perez MD - 08/01/2024 2:58 PM BUNDLE HELPER I agree with the plan as outlined in Dr. Maddox's note dated 07/31/24. I saw and examined the patient with Dr. Webb on 08/01/24. I actively participated in the decision-making process. Please see the note for additional details. Tio Perez MD, MS, FAC, MAKENZIEE Keg Inspector Department of Internal Medicine Division of Cardiovascular Medicine [facility] 2024-07-19 16:26:21 Pre-Procedure Sedation Evaluation H&P from 07/13 reviewed. No changes noted.. Allergies were reviewed. NPO Status Solids: >6 hours Clear liquids: >2 hours History History of anesthesia/sedation complications: No History of difficult airway: No History of neck problems, craniofacial abnormalities, head/neck surgery: No Increased risk for airway obstruction, sleep apnea, morbid obesity: No Focused Physical Exam Heart: documented in H&P Normal Lung: documented in H&P Normal Airway Mallampati: II (full visibility of soft palate and part of uvula) Mouth opening: Normal Range of motion neck: Normal Dentition: Normal Assessment: ASA 2 Plan: Moderate sedation The risks, benefits, and treatment options of sedation were discussed with the patient/guardian and they desire to proceed. The consent form was completed and signed. LE HELPER Associated attestation - Vernon Weller MD - 07/19/2024 5:05 PM BUNDLE HELPER I agree with the note as written Vernon Weller M.D. Interventional Cardiology Pager: [phone] [facility] 2024-07-18 18:15:07 Pre-Procedure Sedation Evaluation H&P from 07/13/24 reviewed. No changes noted.. Allergies were reviewed. NPO Status Solids: >8 hours Clear liquids: >2 hours History History of anesthesia/sedation complications: No History of difficult airway: No History of neck problems, craniofacial abnormalities, head/neck surgery: No Increased risk for airway obstruction, sleep apnea, morbid obesity: No Focused Physical Exam Heart: documented in H&P Normal Lung: documented in H&P Normal Airway Mallampati: III (only soft palate and only base of uvula) Mouth opening: Normal Range of motion neck: Normal Dentition: Normal Assessment: ASA 3 Plan: Moderate sedation The risks, benefits, and treatment options of sedation were discussed with the patient/guardian and they desire to proceed. The consent form was completed and signed. José Miguel Arellano MD LE HELPER IM-CLINICAL CARDIAC ELECTROPHYSIOLOGY STAFF [facility] 2024-07-13 17:46:21 ЮЛИЯ Navarro Admit H&P PCP: Brooks Barker Date of Service: 07/13/2024 CHIEF COMPLAINT: SOB HISTORY OF PRESENT ILLNESS Bryan Parada is a 58 year old male with a PMH of obesity, HTN, DM II, HLD, CAD, NICM, chronic combined CHF s/p AICD, asthma, CKD III who presents for chest pain and DELGADO. History was difficult to obtain as patient was vague with his answers. He states that starting yesterday he was walking around a grocery store with a friend and was having difficulty with pain in his chest and SOB. He also went to his PCP and reservation manager today and was having trouble walking up stairs. He states the he does not eat much salt, and drinks 10 bottles of water a day. He states that the chest pain is new, though on chart review he has had this chest pain many times before. He describes the chest pain as sharp, substernal, does not radiate, and worsens with exertion. He also has the pain at rest. He denies any N/V, abd pain, headaches, RODERICK, pain in calves, blood in stool, diarrhea, constipation, or dysuria. His mom and dad both had heart disease as well as his sister. He does not smoke, drinks alcohol rarely, and does not use recreational drugs. In ED, BP was 150/107, HR 96, RR 24, and temp 35.7. labs were significant for Cr of 1.6, trop of 0.0357->0.323, NTproBNP 7200. CXR showed cardiomegaly and minimal pulmonary edema. Past medical history: has a past medical history of ACC/AHA stage C congestive heart failure, Adrenal mass, Arthritis, Asthma, Cataract, Chronic combined systolic and diastolic CHF, NYHA class 4 (09/22/2015), Diet-controlled diabetes mellitus (05/03/2015), Diverticulosis large intestine w/o perforation or abscess w/o bleeding (02/19/2017), Illiteracy, LVH (left ventricular hypertrophy) (09/22/2015), Metabolic syndrome (06/23/2015), Nonischemic cardiomyopathy (09/22/2015), Obesity (06/23/2015), PRAVEEN (obstructive sleep apnea) (06/23/2015), Other and unspecified hyperlipidemia, Stroke, and Uncontrolled hypertension (05/03/2015). Past surgical history: has a past surgical history that includes joint surgery (Right, 11/2016); colonoscopy (N/A, 02/19/2017); esophagogastroduodenoscopy (N/A, 07/20/2019); pacemakers insertion; and esophagogastroduodenoscopy (N/A, 04/03/2021). Social history: reports that he has never smoked. He has been exposed to tobacco smoke. He has never used smokeless tobacco. He reports that he does not currently use alcohol. He reports that he does not use drugs. Family history: family history includes CHF (congestive heart failure) in his mother; Depression in his mother; Diabetes in his father and mother; Heart in his father and sister; Hypertension in his father and mother. Allergies: Allergies Allergen Reactions Imdur [Isosorbide Mononitrate] Other - See comments Severe hypotension, likely from severe LVH per Dr. Sanderson. MEDICATIONS reviewed REVIEW OF SYSTEMS Negative except per HPI PHYSICAL EXAMINATION Vitals: 07/13/24 1510 07/13/24 1526 07/13/24 1546 07/13/24 1720 BP: (!) 163/125 (!) 159/114 (!) 155/118 BP Location: Right arm Patient Position: Sitting Pulse: 107 97 99 101 Resp: 25 16 23 Temp: 36.7 ?C (98 ?F) 36.4 ?C (97.5 ?F) TempSrc: Oral Oral SpO2: 98% 98% 99% 96% Weight: Height: General: NAD HEENT: normocephalic atraumatic Lungs: clear to auscultation bilaterally Cardio: distant heart sounds, no MRG Abdomen: soft; non-tender; non-distended; normoactive bowel sounds Extremities: no clubbing, cyanosis, or edema, warm Skin: no rashes LABS - reviewed pertinent labs as below: IMAGING - reviewed, pertinent results as below: CHART REVIEW: pertinent information as below: HOSPITAL COURSE: 07/03/24 Bryan Parada is a 58 year old male with PMH as listed above, admitted to the hospital with chest pain and mildly elevated troponins. Patient was started on his home meds and his hypertensive urgency has improved and chest pain has diminished. Patient is cleared for discharge. Patient will follow-up with cardiology within 1 to 2 weeks of discharge. ASSESSMENT/PLAN Bryan Parada is a 58 year old male with PMH as listed above, admitted to the hospital with: Chest pain Acute exacerbation of HFrEF s/p AICD (5% 05/15/24) w/ diastolic dysfunction, NICM pAfib on eliquis HTN Non obstructive CAD 2019 Hx of CVA Patient is presenting from [facility] for a HF exacerbation. He has slight pulm edema and elevated NTproBNP, but no edema on exam, satting well on room air. He might be having slight exacerbation, but he has been compliant with his home meds. Will double home dose lasix and monitor UOP. Also, he is having CP w/ trop leak, now down trending. Has Hx of non obstructive CAD, though last coronary angiography was in 2019. Will trend trop and get EKG. LA is normal, not in shock. Will control blood pressure. - admit to red - diuresis with lasix - lipitor - hold home coreg given exacerbation - start lisinopril 5 for BP control and GDMT - hold eliquis, heparin gtt for afib - home jardiance, ASA, aldactone - CLDpm for possible procedure CKD III T2DM - SSI - monitor Cr on diuresis Pain ControlledTylenol Prophylaxis: DVT- heparin gtt Stress Ulcer: PPI Code Status: addressed: Full Bowel Regimen: none Rebecca Richmond MD 07/13/2024 5:46 PM LE HELPER Associated attestation - Gino Rico MD - 07/14/2024 10:11 PM BUNDLE HELPER . [facility] 2024-07-03 23:09:29 Medicine History & Physical Date of Service: 07/03/2024 Pt presents from: Home CC: Chest pain History of Present Illness: Bryan Parada is a 58 year old male with past md hx asthma, chronic systolic and diastolic congestive heart failure, nonischemic cardiomyopathy, diabetes, chronic kidney disease stage III status post AICD placement and history of medication noncompliance that presents to the ED for chest pain. Per patient he was in his normal state of health developed sharp chest pain approximately 7 PM yesterday he has had it intermittently since then and his roommate encouraged him to go to the ER for evaluation. He states he has longstanding shortness of breath with ambulation but this is not changed over the past few days. He does state compliance with medication states he has [facility] coming to assist him with his meds. In the emergency department he was noted to be hypertensive. Initial labs no show no leukocytosis. Chemistry does show creatinine 2.09 mg/dL with an elevated BUN 27 mg/dL. He has have initial elevated troponin 0.047 ng/mL downtrending to 0.046 ng/mL, proBNP is elevated at 7260. Hospitalist called for the admission. On exam he is alert chest pain-free. States compliance with all his home meds denies smoking drinking drugs. ROS: Pt denies F / N / V / D / Constipation / cough / Abd pain / dysuria / hematuria / [...] Social History Tobacco Use Smoking status: Never Passive exposure: Past Smokeless tobacco: Never Vaping Use Vaping status: Never Used Substance Use Topics Alcohol use: Not Currently Comment: 1 cup of whiskey but last dirnk in December Drug use: Never Current Scheduled Medications Current IV Current Facility-Administered Medications: acetaminophen (TYLENOL) tablet 650 mg, 650 mg, Oral, Q6HPRN, Bj Weiss MD [START ON 07/04/2024] aspirin chewable tablet 81 mg, 81 mg, Oral, DAILY, Bj Weiss MD atorvastatin (LIPITOR) tablet 40 mg, 40 mg, Oral, QHS, Bj Weiss MD, 40 mg at 07/03/242125 busPIRone (BUSPAR) tablet 5 mg, 5 mg, Oral, BID, Bj Weiss MD, 5 mg at 07/03/241943 carvediloL (COREG) tablet 25 mg, 25 mg, Oral, BID MEALS, Bj Weiss MD, 25 mg at 07/03/241943 dextrose 50 % in water (D50W) injection 25 mL, 25 mL, Slow IV Push, PRN, Bj Weiss MD [START ON 07/04/2024] furosemide (LASIX) tablet 40 mg, 40 mg, Oral, TID, Criss Leyva DO gabapentin (NEURONTIN) capsule 100 mg, 100 mg, Oral, TID, Bj Weiss MD, 100 mg at 07/03/24 194 glucagon HCL injection 1 mg, 1 mg, Intramuscular, PRN, Bj Weiss MD heparin (1,000 unit/mL, 10 mL vial) for Rebolusing, 3,000-5,000 Units, Slow IV Push, FOR REBOLUSING, Michelle Miranda MD heparin 25,000 Units/250 mL (Premixed Bag) in 0.45 % NS, 1,000 Units/hr, IV Infusion, CONTINUOUS, Michelle Miranda MD, Last Rate: 10 mL/hr at 07/03/24 174, 1,000 Units/hr at 07/03/24 174 HYDROcodone-acetaminophen (NORCO 5) tablet 1 tablet, 1 tablet, Oral, Q6HPRN, Bj Weiss MD morphine (2 mg/mL) injection 2 mg, 2 mg, Slow IV Push, Q4HPRN, Bj Weiss MD ondansetron (ZOFRAN (PF)) injection 4 mg, 4 mg, Slow IV Push, Q6HPRN, Bj Weiss MD [START ON 07/04/2024] pantoprazole (PROTONIX) EC tablet 40 mg, 40 mg, Oral, DAILY, Bj Weiss MD Sliding Scale Insulin - Lispro (HumaLOG), , Subcutaneous, TID MEALS+HS, Bj Weiss MD [START ON 07/04/2024] spironolactone (ALDACTONE) tablet 25 mg, 25 mg, Oral, DAILY, Criss Leyva DO Objective: Vitals: Vitals: 07/03/24 1600 07/03/24 1700 07/03/24 1734 07/03/24 1843 BP: (!) 140/107 (!) 141/111 (!) 137/118 138/90 Pulse: 92 84 89 76 Resp: 26 23 27 20 Temp: 36.1 ?C (97 ?F) TempSrc: SpO2: 96% 97% 99% 94% Weight: 138.5 kg (305 lb 4.8 oz) Height: I/O's: Intake/Output Summary (Last 24 hours) at 07/03/2024 2309 Last data filed at 07/03/2024 2136 Gross per 24 hour Intake -- Output 800 ml Net -800 ml Physical Exam: General: NAD, Alert, lying [...] deficits. Labs: BMP:BMP NA (mmol/L) Date Value 07/03/2024 141 06/20/2024 143 05/17/2024 136 05/16/2024 137 05/15/2024 139 K (mmol/L) Date Value 07/03/2024 3.5 06/20/2024 4.0 05/17/2024 3.9 05/16/2024 3.2 (L) 05/15/2024 4.1 CALCIUM (mg/dL) Date Value 07/03/2024 9.0 06/20/2024 9.3 05/17/2024 8.8 05/16/2024 8.2 (L) 05/15/2024 8.9 CL (mmol/L) Date Value 07/03/2024 106 06/20/2024 104 05/17/2024 102 05/16/2024 106 05/15/2024 108 BUN (mg/dL) Date Value 07/03/2024 27 (H) 06/20/2024 18 05/17/2024 21 05/16/2024 18 05/15/2024 17 CREATININE (mg/dL) Date Value 07/03/2024 2.09 (H) 06/20/2024 1.87 (H) 05/17/2024 1.64 (H) 05/16/2024 1.40 (H) 05/15/2024 1.51 (H) GLUCOSE (mg/dL) Date Value 07/03/2024 69 (L) 06/20/2024 65 (L) 05/17/2024 108 05/16/2024 85 05/15/2024 107 CO2 TOTAL (mmol/L) Date Value 07/03/2024 26 06/20/2024 31 05/17/2024 29 05/16/2024 24 05/15/2024 23 CBC:CBC WBC (10*3/?L) Date Value 07/03/2024 5.62 RBC (10*6/?L) Date Value 07/03/2024 5.39 PLT (10*3/?L) Date Value 07/03/2024 193 HGB (g/dL) Date Value 07/03/2024 14.0 HCT (%) Date Value 07/03/2024 46.0 BMP:Hepatic Function Panel ALBUMIN (g/dL) Date Value 07/03/2024 3.9 T PROTEIN (g/dL) Date Value 07/03/2024 7.3 TOTAL BILI (mg/dL) Date Value 07/03/2024 0.8 BILI UNCON (mg/dL) Date Value 05/15/2024 1.2 (H) BILI CONJ (mg/dL) Date Value 05/15/2024 0.0 ALT(SGPT) (U/L) Date Value 04/13/2019 26 ALTv (U/L) Date Value 07/03/2024 18 AST(SGOT) (U/L) Date Value 07/03/2024 34 ALK PHOS (U/L) Date Value 07/03/2024 79 Troponin: Recent Labs 07/03/24 2135 TROPNI 0.046* I have reviewed all relevant labs Imaging: XR CHEST 1 VW Result Date: 07/03/2024 History: chest pain . Exam: XR CHEST 1 VW Date: 07/03/2024 3:30 PM Ordering provider: MICHELLE MIRANDA Comparison: 05/15/2024. Findings: Frontal view of the chest is obtained. Left-sided pacemaker ICD is noted. The cardiac silhouette is severely enlarged. There is severe dextroscoliosis centered in the midthoracic spine. There are mild bilateral perihilar opacities. Small left pleural effusion is possible. No evidence of pneumothorax. Impression: Mild bilateral perihilar opacities, which could reflect edema or pneumonia. RL: 781 HS: Y Assessment and plan: Principal Problem: Chest pain, unspecified type Atypical chest pain with elevated troponin: Resolved, suspect secondary to hypertensive urgency - Cardiology consult - On aspirin and statin - Continue Coreg - Continue telemetry - Trend troponin Hypertensive urgency: Improving on home meds - Continue to encourage patient to take his home meds - Continue Coreg, Lasix, Aldactone Chronic systolic and diastolic congestive heart failure: Appears euvolemic on exam - Continue home Lasix and Aldactone - Continue Coreg - Follow-up cardiology regarding starting LANA/ARB Chronic kidney disease: Appears near baseline - Continue to monitor DVT prophylaxis: Heparin SC Advanced Care Planning ( Z71.89 ) Above assessment and plan discussed at length with patient, patient expressed full understanding. Questions and concerns addressed I spent 1 minutes discussing the advance care planning. Advanced Directive Maker: PT Level of comfort: N/A Code Status: Full [place] WINCH RUNNER was verified Disposition: Await stability [facility] 2024-05-15 01:18:11 [facility] Hospitalist Admission H&P Date of Service: 05/15/2024 CHIEF COMPLAINT: Patient presents with persistent chest pain along with shortness of breath HISTORY OF PRESENT ILLNESS Bryan Parada is a 58 year old male who presents with chest pain and shortness of breath. Patient's blood pressure was significantly elevated in the ER at 170/120. Patient was given IV diuretics and started on a Cardene drip. Patient's last echocardiogram was in July of last year where patient was found to have an ejection fraction of 15 to 20% with LV dilatation. Patient will be admitted to the ICU on Cardene drip for strict blood pressure control. Patient is long-term prognosis is poor especially with his poor compliance with his treatment regimen. Patient was just admitted to the hospital about a month ago for similar complaints. Patient may benefit from home health care and reeducation of his clinical symptoms. Will consult cardiology once again, and also get their recommendations. PAST MEDICAL HISTORY Past Medical History: Diagnosis [...] and unspecified hyperlipidemia Stroke Uncontrolled hypertension 05/03/2015 PAST SURGICAL HISTORY Past Surgical History: Procedure Laterality Date COLONOSCOPY N/A 02/19/2017 Surgeon: Fran Canchola MD; Location: [facility] OR Location ESOPHAGOGASTRODUODENOSCOPY N/A 07/20/2019 Surgeon: Maddi Ballesteros MD; Location: [facility] OR Location ESOPHAGOGASTRODUODENOSCOPY N/A 04/03/2021 Surgeon: Fran Trinh MD; Location: [facility] ([facility]) OR Location JOINT SURGERY Right 11/2016 Right knee PACEMAKERS INSERTION ALLERGIES Allergies Allergen Reactions Imdur [Isosorbide Mononitrate] Other - See comments Severe hypotension, likely from severe LVH per Dr. Sanderson. MEDICATIONS Current home medication list reviewed: Patient's Medications START taking these medications No medications on file CONTINUE taking these medications which have NOT CHANGED ALLOPURINOL 300 MG TABLET Take 1 tablet by mouth every morning. AMMONIUM LACTATE 12 % CREAM Apply to area(s) as needed for Itching. APIXABAN 5 MG TABLET Take 1 tablet by mouth in the morning and 1 tablet in the evening. Indications: atrial fibrillation ASPIRIN 81 MG CHEWABLE TABLET Take 1 tablet by mouth in the morning. ATORVASTATIN 40 MG TABLET Take 1 tablet by mouth at bedtime. BLOOD SUGAR DIAGNOSTIC STRIP Check blood sugar 2 times a day. E11.9. Brand per insurance. BLOOD-GLUCOSE METER KIT Check sugars 2 times a day. Dx. Code E11.9 Brand per Insurance BUSPIRONE 5 MG TABLET Take 1 tablet by mouth in the morning and 1 tablet in the evening. CARVEDILOL 25 MG TABLET Take 1 tablet by mouth in the morning and 1 tablet in the evening. Take with meals. DICLOFENAC DODIUM (VOLTAREN) 1 % GEL Apply 4 g to area(s) 4 (four) times daily. Apply 4 g qid EMPAGLIFLOZIN (JARDIANCE) 10 MG TABLET Take 1 tablet by mouth in the morning. FUROSEMIDE 40 MG TABLET Take 1 tablet by mouth in the morning and 1 tablet at noon and 1 tablet in the evening. GABAPENTIN 100 MG CAPSULE Take 1 capsule by mouth in the morning and 1 capsule at noon and 1 capsule in the evening. GLIPIZIDE 5 MG TABLET Take 1 tablet by mouth 2 (two) times daily before breakfast and dinner. KETOCONAZOLE 2 % CREAM APPLY TO AREA(S) DAILY. APPLY TO FEET/TOES LANCETS [facility] Check sugars 1 times a day. Dx Code E11.9. Brand per insurance. LIDOCAINE-PRILOCAINE 2.5-2.5 % CREAM Apply to area(s) 2 (two) times daily. LISINOPRIL 2.5 MG TABLET Take 1 tablet by mouth in the morning. METHOCARBAMOL 500 MG TABLET Take 1 tablet by mouth 3 (three) times daily as needed for Pain (scale 7-10) (Knee pain). OMEPRAZOLE 40 MG CAPSULE Take 1 capsule by mouth daily. SPIRONOLACTONE (ALDACTONE) 25 MG TABLET Take 1 tablet by mouth in the morning. START taking Modified Medications as Prescribed No medications on file STOP taking these medications No medications on file FAMILY HISTORY Family History Problem Relation Age of Onset CHF (congestive heart failure) Mother Depression Mother Hypertension Mother Diabetes Mother Diabetes Father Hypertension Father SOCIAL HISTORY Social History Socioeconomic History Marital [...] History Narrative Lives in an apt in [place], [place] himself. Social Determinants of Health Financial Resource Strain: Medium Risk (04/13/2024) Overall Financial Resource Strain (CARDIA) Difficulty of Paying Living Expenses: Somewhat hard Food Insecurity: No Food Insecurity (04/13/2024) Hunger Vital Sign Worried About Running Out of Food in the Last Year: Never true Ran Out of Food in the Last Year: Never true Transportation Needs: No Transportation Needs (04/13/2024) PRAPARE - Transportation Lack of Transportation (Medical): No Lack of Transportation (Non-Medical): No Physical Activity: Insufficiently Active (04/13/2024) Exercise Vital Sign Days of Exercise per Week: 3 days Minutes of Exercise per Session: 40 min Social Connections: Unknown (04/06/2024) Social Connection and Isolation Panel [NHANES] Frequency of Communication with Friends and Family: More than three times a week Marital Status: Never Housing Stability: Low Risk (04/13/2024) Housing Stability Vital Sign Unable to Pay for Housing in the Last Year: No Number of Places Lived in the Last Year: 1 Unstable Housing in the Last Year: No REVIEW OF SYSTEMS 10 systems negative except per HPI PHYSICAL EXAMINATION BP (!) 157/116 | Pulse 93 | Temp 37 ?C (98.6 ?F) (Oral) | Resp 30 | Ht 1.88 m (6' 2") | Wt 131.1 kg (289 lb) | SpO2 98% | BMI 37.11 kg/m? General: No acute distress HEENT: Normal oral mucosa, anicteric sclerae, NCAT Cardiovascular: Irregularly irregular rate with systolic ejection murmur Lungs: Basilar crackles Abdomen: Soft, NTND Musculoskeletal: No synovitis, normal muscle mass Genitourinary: Deferred Skin: No rash, no skin lesions Extremities: No clubbing, no cyanosis, no lower extremity edema Neuro: AAOx3, no focal deficits Psych: Normal affect LABS - reviewed pertinent labs as below: CBC BMP PT/INR WBC (10*3/?L) Date Value 05/15/2024 5.32 NA (mmol/L) Date Value 05/15/2024 139 No results found for: "PT" RBC (10*6/?L) Date Value 05/15/2024 5.20 K (mmol/L) Date Value 05/15/2024 4.1 INR (no units) Date Value 06/05/2022 1.1 PLT (10*3/?L) Date Value 05/15/2024 222 CALCIUM (mg/dL) Date Value 05/15/2024 8.9 HGB (g/dL) Date Value 05/15/2024 13.9 CL (mmol/L) Date Value 05/15/2024 108 aPTT HCT (%) Date Value 05/15/2024 44.9 BUN (mg/dL) Date Value 05/15/2024 17 APTT Patient (Seconds) Date Value 05/14/2022 101 (HH) CREATININE (mg/dL) Date Value 05/15/2024 1.51 (H) IMAGING - reviewed, pertinent results as below: Hospital Encounter on 05/15/24 XR CHEST 1 VW Narrative Exam: Chest (1 View), 05/15/2024 12:15 AM. Ordering Physician: PIA WATTS. History: Chest pain. Technique: One view of the chest. Comparison: 04/04/2024. Findings: Pulse generator overlies the left hemithorax, with electrode lead tips projecting at the left ventricle, possibly within a cardiac vein, and right atrium and ventricle. Cardiac silhouette is moderately enlarged. There is no pneumothorax. Hazy left basilar opacity is noted. There is no focal consolidation. Osseous structures show degenerative changes. Impression Impression: No consolidation. Small left pleural effusion not excluded. RL: [id number] End of Report SSMENT: 1. Hypertensive emergency 2. Acute CHF exacerbation; patient with diastolic and systolic dysfunction 3. History of CAD 4. History of type 2 diabetes 5. History of gouty arthropathy 6. History of atrial fibrillation PLAN: 1. Patient with hypertensive emergency; patient on Cardene drip and continue with IV diuretics. Resume antihypertensives including carvedilol and lisinopril. Patient may benefit from Entresto. I am not sure if he can afford this outpatient but we may be able to bridge him with social service assistance 2. Acute CHF exacerbation/heart failure with reduced ejection fraction; continue with diuresing 3. History of CAD; continue with resuming cardiac meds 4. History of type 2 diabetes; strict blood sugar control and resume Jardiance and glipizide 5. History of gout; continue allopurinol 6. History of A-fib; patient on anticoagulation and will monitor his rate. Get cardiology input as well. DVT prophylaxis: eliquis Stress ulcer prophylaxis: pantoprazole Code status: FULL Advanced Care Planning (Z71.89) Above assessment and plan discussed at length with patient, patient expressed full understanding. Questions and concerned addressed. Surrogate decision maker: NO Level of care expected after discharge: HOME Time spent: 3 minutes discussing the advanced care plan Smoking Cessation: (Z71.6) Tobacco user?: NO Patient will require inpatient stay of 2 midnights or more given high risk of morbidity and mortality. Critical care time send patient care was 60 minutes [place] WINCH RUNNER was verified during stay Yared Larios MD [facility] 2024-04-04 23:43:26 Medicine History & Physical Date [...] MD Objective: Vitals: Vitals: 04/04/24 1608 04/04/24 1921 04/04/24 2020 04/04/24 2318 BP: (!) 127/100 (!) 146/101 (!) [...] Level of comfort: N/A Code Status: Full [place] WINCH RUNNER was verified Disposition: Admit, FU cards eval Diabetes mellitus type 2: - Continue home medications including glipizide - Start insulin sliding scale Igned: Criss Leyva DO 04/04/2024 [facility] Procedure Notes Date/Time Note Provider Source 2024-08-12 20:26:07 Supraventricular Tachycardia Ablation Procedure: Atrial Flutter Ablation Indication: Recurrent Highly Symptomatic Atrial Flutter Refractory to Pharmacologic Suppression Technique: The patient presented to the electrophysiology lab in the fasting state. An EKG was performed, and it showed that the patient was in normal sinus rhythm. Anesthesia administered by the anesthesia team. The patient was prepped and draped in the usual sterile manner. The right common femoral vein was accessed 2 times under ultrasound guidance and 2 sheaths were placed in this vein. A Dynamic catheter was positioned in the right atrium with its distal tip in the coronary sinus. Recordings were made from the right atrium and CS by this catheter. A complete EP study with CS pacing was then performed. . With stimulation and pacing the patient did not go into tachycardia. Aggressive pacing was performed via both the right and CS and the patient still did not go into atrial flutter. Since this patient had documented CTI flutter on several prior EKGs we decided to proceed with an empiric CTI flutter line. A 3D electroanatomic map of the right atrium was performed with [place] catheter, A series of RF ablation lesions were applied from the ventricular side of the tricuspid valve to the inferior vena cava. Ablation was performed at a maximum power of 40 W. This resulted in termination of the tachycardia. After completion of the lesion set bidirectional block was demonstrated via mapping. With stimulation and pacing no further sustained tachycardia was induced. The sheaths were removed and manual pressure was applied. Excellent hemostasis was achieved. The patient was then transferred to recovery for observation. The patient the procedure well and there were no acute complications. My plan is to have the patient follow up with me in clinic in three months. Impression: -Successful Atrial Flutter Ablation (CTI-dependent) Plan: Remove figure of 8 from both groins in 6 hr. Anticoagulation: Continue C/w amiodarone Akhil Barriga MD Follow up in the arrhythmia clinic as scheduled LE HELPER IM-CLINICAL CARDIAC ELECTROPHYSIOLOGY STAFF [facility] 2024-07-19 17:58:49 Procedure(s): MN RIGHT HEART CATH O2 SATURATION & CARDIAC OUTPUT Pre-Procedure Diagnose(s): Acute on chronic HFrEF (heart failure with reduced ejection fraction) Post-Procedure Diagnose(s): Acute on chronic HFrEF (heart failure with reduced ejection fraction) Right Heart Cath [place] Date of Service: 07/19/2024 6:01 PM Attending Physician: Vernon Weller MD Fellow: Dr. Mejía Referring Physician: Dr. Rico Procedures Performed: Right Heart Cath: CTP 43694 Indication/Diagnosis: congestive heart failure Consent: Risks, benefits, alternatives and complications of the procedure discussed with the patient, who understood and agreed to proceed. Aseptic technique: Chlorprep Local Anesthesia: 1% lidocaine without epinephrine Sedation: None Access site: right internal jugular vein Closure Method: Manual Compression Sterile dressing: yes Complications: none Procedures: The patient arrived the clinical laboratory scientist in stable condition. After patient identification/verificatio n, the patient was thereafter transferred onto the clinical laboratory scientist table. After administering sedation, Time Out was done. Using modified Seldinger technique, the Right internal jugular vein was accessed using a micropuncture kit. The access was upgraded a 7Fr sheath. A [place] Catheter was then prepped and advanced through the right IJ into the RA. Selective right heart catheterization was then done. Thereafter cardiac output/index was done. RHC: RA mean 6 mmHg RV 37/10 mmHg PA 39/22 mmHg (mean PA 28 mmHg) PCWP mean 17 mmHg CO 3.71 L/min (Jennifer's method) CI 1.48 L/min/m2 (Jennifer's method) CO 3.623 L/min (Thermodilution technique) CI 1.45 L/min/m2 (Thermodilution technique) TPG 11 mmHg PVR 3.03 Posey Units PA sat: 55 % RA sat: 56% Post-Procedure Sedation Addendum No sedation was given Complications: None Impression: Mildly elevated filling pressures Low CO/CI Plan: Monitor on Telemetry Management as per primary Team. Hold diuresis today. 250 NS given as per HF in light normal CVP Findings and plan discussed with patient Dr. Weller, Faculty, was present for the entire procedure. Vernon Weller MD 07/19/2024 6:01 PM LE HELPER IM-INTERVENTIONAL CARDIOLOGY STAFF [facility] 2024-07-18 18:57:09 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-D Generator Change Out Procedure Note Procedure: Bi-Ventricular ICD Generator Change Out Indication: Pulse Generator YOMAIRA Technique: The patient presented to the electrophysiology lab in the fasting state. After obtaining informed consent and administrating preoperative antibiotics, the patient was prepped and draped in the usual sterile fashion. Sedation was initiated under anesthesia team guidance. Local anesthesia was administered over the previously implanted pulse generator. An incision was made and using sharp and blunt dissection the pulse generator was freed up from the surrounding tissue and removed from the pocket. The leads were disconnected and examined for structural integrity and absence of "make-break" artifacts. Pacing and sensing thresholds, lead impedances and absence of diaphragmatic stimulation were confirmed. All leads were connected to the appropriate posts in the new pulse generator. The wound was irrigated with a large amount of antibiotic solution. Adequate hemostasis was confirmed. The new pulse generator was placed into the pocket. Excess leads were coiled behind the device. Wound was closed with two layers of absorbable sutures. Skin was closed with Dermabond glue. Postoperative interrogation confirmed adequate pacemaker function. The patient tolerated the procedure well and there were no acute complications. Device Characteristics: Device Characteristics: Pulse generator: [employer] Model G247 RA Lead: Biotronik Solia S53, P waves: 11.7 mV, Threshold 0.4 V@0.4msec, Impedance 633 ohms RV Lead: Biotronik Plexa SD 65/18, R-waves 9.1 mV, Threshold 0.7 V@0.4msec, Impedance 505 ohms LV Lead: Biotronik Sentus L85, R waves: 8.5 mV, Threshold 1.5 V@0.4msec, Impedance 483 ohms High Voltage Impedance: 61 ohms MRI Compatible Final Programming: DDDR 60-130 VT 1 150-180 Monitor VT2 180-210 ATP, Max Output Shocks VF 210+ Max Output Shocks Impression: Successful Bi-Ventricular ICD pulse Generator Change Out Plan: Pressure dressing in place. Please remove tomorrow AM. Follow up in device clinic in 2 weeks for wound check. Follow up in EP clinic in 6-8 weeks. José Miguel Arellano MD Cardiac Electrophysiology [facility] Notes Date/Time Note Provider Source [id number] 08:39:16 [facility] [id number] 11:43:01 Images from the original note were not included. Called to inform patient of results and recommendations as detailed below. Patient verbalized understanding. He mentioned he is still having flank pain. He saw his PCP yesterday and was sent to ER. Advised patient to call PCP's office to follow up on UA results and notify PCP of continuous flank pain. David Ladd MD P Cardiology Nurse NT proBNP stable at 4700 similar to before. CMP within acceptable limits except creatinine mildly elevated 1.7 Continue with current cardiac medication without any further changes. Please make a nurse visit so that patient can bring all his medications for verification. RAFAEL Norton [facility]Dmkrpe1855-[facility]-29 20:23:37 Pt given printed and verbal discharge instructions regarding numbness and tingling, encouraged hydration, Pt verbalized understanding of instructions, pt awake alert oriented, resp reg unlabored, skin w/d, color appropriate for race, moves all ext well,pt encouraged to follow up with pcp. Advised to seek medical attention for new/prolonged/worsening of symptoms. No adverse reaction to meds given in ER noted upon discharge PIV d'cd, dressing to site, catheter in tact. Awake, alert oriented, resp reg unlabored, skin w/d, pt leaving amb with steady gait, in no apparent distress, RAFAEL Pal [facility] [id number] 16:31:44 CC: patient presents to the ER with complaints of shortness of breath that began last week. Patient states his left hand is also numb that began last week and he cannot "squeeze nobody's hand real tight no more." Patient also states he is having right sided flank pain that began last night. Awake, alert, oriented, resp reg unlabored, skin warm and dry, color appropriate for race, moves all ext without difficulty, using wheelchair. Appears in no distress. [facility]2025-03-04 16:03:00 Bryan Parada is a 58 year old male signed out to me by Dr. Watts pending UA, reassessment and disposition. Patient with elevated troponin, but with troponin elevated at baseline and today's troponin decreased from prior. UA unremarkable aside from glucose in urine. Patient not currently hyperglycemic. No anion gap. Patient well appearing on reassessment, reports feeling better. Plan for discharge home with close PCP follow up. Patient advised to return to the ER for worsening symptoms. Latest Reference Range & Units 10/04/24 18:39 COLOR Yellow Straw ! APPEARANCE Clear Clear SP GRAVITY 1.003 - 1.030 1.008 PH 4.8 - 8.0 6.0 PROTEIN Negative Negative GLU U QUAL Normal 500 mg/dL ! KETONES Negative Negative BILIRUBIN Negative Negative BLOOD Negative Negative UROBILIN Normal Normal NITRITE Negative Negative LEUK DASHAWN Negative Negative RBC/HPF 0 - 3 HPF 1 WBC/HPF 0 - 5 HPF <1 BACTERIA Negative Negative !: Data is abnormal Jackie Goldberg MD 10/04/241953 [facility] EMERGENCY PHYSICIAN [facility]2025-03-03 16:27:14 Diagnosis Chest pain, unspecified type - Primary Chest pain, unspecified type Chronic systolic heart failure (CMS/HCC) (HCC) Chronic systolic heart failure Diabetes mellitus (HCC) Type II or unspecified type diabetes mellitus without mention of complication, not stated as uncontrolled [place] [id number] 16:27:14 [place] [address]-03-03 16:27:14* Consultation (Routine) - Pending Review Specialty Diagnoses / Procedures Referred By Contac t Referred To Contact Cardiac Rehabilitation Diagnoses Chronic systolic heart failure (CMS/HCC) (HCC) Procedures [place] OFFICE[facility]PAT[facility] 60 MINUTES Michael Dodd MD [address] [facility] [address] [place] [address] Phone: tel: fax: [address] [place] [address] Phone: tel: Referral ID Status Reason Start Date Expiration Date Visits Requested Visits Authorized [id number] Pending Review Specialty Services Required 10/03/2024 04/01/2025 36 36 LE HELPER* Consultation (Routine) - Pending Review Specialty Diagnoses / Procedures Referred By Contac t Referred To Contact Cardiac Rehabilitation Diagnoses Chronic systolic heart failure (CMS/HCC) (HCC) Procedures [place] [facility] 60 MINUTES Marcel Saunders MD [address] [place] [phone] Phone: tel: fax: Referral ID Status Reason Start Date Expiration Date Visits Requested Visits Authorized [id number] Pending Review Specialty Services Required 10/03/2024 04/01/2025 36 36 [facility]2025-03-03 16:27:14* * Auth/Cert (Routine) Specialty Diagnoses / Procedures Referred By Contac t Referred To Contact Diagnoses Chronic systolic heart failure (CMS/HCC) (HCC) Chest pain, unspecified type Procedures Milan Valverde MD [address] [place] [id number] Phone: tel: fax: [facility] (4 Cardiac IMU) [address] [place] [phone] Phone: tel: Referral ID Status Reason Start Date Expiration Date Visits Re quested Visits Authorized [id number] 1 [facility] [id number] 16:27:14* Audit-C Score Answer Date of Assessment Author 0 10/02/2024 10:07 PM Cate Doherty, YARELIS * Intimate Partner Violence Question Answer Date of Assessment Author Within the last year, have y ou been humiliated or emotionally abused in other ways by your partner or ex-partner? No 10/02/2024 10:07 PM Gerald Doherty RN Within the last year, have y ou been afraid of your partner or ex-partner? No 10/02/2024 10:07 PM Gerald Doherty RN Within the last year, have y ou been raped or forced to have any kind of sexual activity by your partner or ex-partner? No 10/02/2024 10:07 PM Gerald Doherty RN Within the last year, have y ou been kicked, hit, slapped, or otherwise physically hurt by your partner or ex-partner? No 10/02/2024 10:07 PM Gerald Doherty RN * * Calculated C-SSRS Risk Score (Lifetime/Recent) Answer Date of Assessment Author No Risk Indicated 10/02/2024 10:09 PM Cate Esteves RN * Morrison Suicide Severity Rating Scale (Screener/Recent Self-Report) Question Answer Date of Assessment Author 1. Wish to be (Past 1 Month) No 10/02/2024 10:09 PM Gerald Doherty RN 2. Non-Specific Active Suici anne Thoughts (Past 1 Month) No 10/02/2024 10:09 PM Ken Doherty RN 6. Suicidal Behavior (Lifetime) No 10:09 PM Cate Doherty RN [facility] RockQzofpbo3943-65-06 16:27:14* Anne Marie Ro - 10/03/2024 1:40 PM BUNDLE HELPER [facility] schedule medicaid transportation with [facility] to transfer patient Home. assembler wire group time is 16:00 Trip#[id number] LE HELPER * Loan Moreau NP - 10/03/2024 10:03 AM BUNDLE HELPER Risks and benefits regarding non-conditional MRI discussed with patient. MRI is considered non-conditional due to [employer] generator and [employer] leads. Patient verbalized understanding and would like to proceed with MRI. LE HELPER * Mita Billingsley, PT - 10/03/2024 9:40 AM BUNDLE HELPER Evaluation and Treatment Note Patient Name: Bryan Parada Today's Date: 10/03/2024 Preferred Language: New Zealander Assessment & Plan Assessment: Prognosis: Good Evaluation/Treatment Tolerance: (limited by dyspnea w/exertion) Medical Staff Made Aware: Yes Strengths: Capable of completing ADLs semi/independent Per EMR: Bryan Parada is a 58 y.o. male found to be volume overloaded with hypertension to SBP 160s. Prior to admission patient reports living alone in a [facility] where he is independent w/all iADLs/ADLs and mobility w/o use a/d. Patient presents for PT eval slightly below baseline w/decreased mobility secondary to mod dyspnea. PT attempted ambulating patient in hallway, however pt c/o SOB and requested return back to room. Patient is CGA/SBA for transfers and ambulation w/o A/D. Patient may benefit from skilled acute PT services while in house in order to maximize functional independence and safe mobility. Plan: Treatment Plan/Goals Established with Patient/Caregiver: Yes Treatment/Interventions: Balance training, Bed mobility training, Equipment training, Functional activities, Gait training, Patient education, Posture/Body mechanics baring, Therapeutic exercises, Transfer training PT Plan: Skilled PT PT Frequency: 2-3 times per week until discharge PT Recommended Transfer Status: (SBA) Subjective Current Problem: Per EMR: Bryan Parada is a 58 y.o. 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 S/p nitroglycerin x2 and aspirin load prior to arrival. Trop 166 --> 172. EKG with ventricular paced rhythm. Chest pain is reproducible. Found to be volume overloaded with hypertension to SBP 160s. Pain: 0/10 Vital Signs: PRE: 131/85, 80BPM, 97%SpO2, POST: 132/78, 83BPM, 100%SpO2 Home Living: Type of Home: House Lives With: Alone Home Adaptive Equipment: Cane (does not use) Home Layout: One level Prior Level of Function: Level of Camp: Other (Comment) (Independent) ADL Assistance: Independent Homemaking Assistance: Independent Prior Function Comments: IND Objective General Visit Information: Precautions: LE Weight Bearing Status: fwb Cognition: Orientation Level: Oriented X4 General Assessments: Activity Tolerance Activity Tolerance Endurance: Tolerates 10 - 20 min exercise with multiple rests Sitting Balance: Moves/returns truncal midpoint more than 2 inches in all planes Early Mobility/Exercise Safety Screen: Proceed with mobilization - No exclusion criteria met Sensation Sensation Light Touch: RLE Intact, LLE Intact Coordination Coordination Movements are Fluid and Coordinated: Yes Balance- Sitting Level of Assistance: Independent Balance- Standing Static Standing-Level of Assistance: Supervision/touching assistance (CGA) Functional Assessments: Transfers Transfers 1: Level of Assistance 1: Supervision/touching assistance (CGA) Trials/Comments 1: x2 Transfer To/From: Chair, Ejk-ne-Yrvdw/Roikd-xx-Cqb Assistive Devices And Adaptive Equipments: No device Extremity Assessments:Right Lower Extremity RLE Assessment RLE Assessment: Within Functional Limits Left Lower Extremity LLE AssessmentLLE Assessment: Within Functional Limits Activity Tolerance:Endurance: Tolerates 10 - 20 min exercise with multiple rests Sitting Balance: Moves/returns truncal midpoint more than 2 inches in all planes Early Mobility/Exercise Safety Screen: Proceed with mobilization - No exclusion criteria met CognitionOrientation Level: Oriented X4 TreatmentTherapeutic activity: Therapeutic Activity Therapeutic Activity Time Entry: 16 Therapeutic Activity 1: transfers Therapeutic Activity 2: ambulation Transfers: Transfers 1:Level of Assistance 1: Supervision/touching assistance (CGA) Trials/Comments 1: x2 Transfer To/From: Chair, Bhn-xs-Myddk/Csoth-nk-Jho Assistive Devices And Adaptive Equipments: No device -YARELIS Robin cleared pt for PT session-Pt found UIC agreeable to PT session -PT assessed VS, VSS -PT arranged all lines in prep for mobility -PT performed formal assessment -Pt performed STS from chair SBA -Pt able to tolerate standing for 30" before requesting return back to chair d/t mild dyspnea -Pt given time to rest, VSS -Pt performed STS from chair SBA -Pt ambulated w/o a/d CGA in hallway ~40' before requesting to return back to room (pt on 2L O2) -Pt returned to room, left UIC, all lines in tact, call [place] and phone at side, all needs met, pt comfortable, NAD, VSS -YARELIS Robin updated on pt functional status/position AM-PAC Basic Mobility:Turning in bed without bedrails: None Lying on back to sitting on edge of flat bed: None Bed to chair: A Little Standing up from chair: None Walk in room: A Little Climbing 3-5 stairs: A Little Mobility Inpatient Raw Score: 21 JH-HLM Goal: 6 Mobility: Highest Level of Mobility Performed (JH-HLM)Walked 25 feet or more (i.e. walked outside of room) Patient Education:Education Documentation Fall Prevention, taught by Mita Billingsley PT at 10/03/2024 1:08 PM. Learner: Patient Readiness: Acceptance Method: Explanation Response: Verbalizes Understanding Mobility, taught by Mita Billingsley PT at 10/03/2024 1:08 PM.Learner: Patient Readiness: Acceptance Method: Explanation Response: Verbalizes Understanding Physical Therapy Plan of Care, taught by Mita Billingsley PT at 10/03/2024 1:08 PM. Learner: Patient Readiness: Acceptance Method: Explanation Response: Verbalizes Understanding Education CommentsNo comments found. Goal:Encounter Goals Encounter Goals (Active) Patient will progress to ambulate on even surface IND ~400' (Progressing) Start: 10/03/24 Expected End: 11/03/24 Patient will perform all transfers IND (Progressing) Start: 10/03/24 Expected End: 11/03/24 Treatment Note: If this is the last documented treatment, then it will signify discharge from acute care prior to discharge from the therapy service and will serve as the discharge summary. Mita Billingsley PT LE HELPER * Mita Cortes OT - 10/03/2024 8:24 AM BUNDLE HELPER Evaluation and Treatment Patient Name: Bryan Parada Today's Date: 10/03/2024 Preferred Language: New Zealander Assessment & Plan Assessment: OT Assessment Results: Impaired ADL status, Impaired upper extremity strength, Impaired endurance, Impaired functional mobility, Impaired gross motor control, Impaired IADLs, Impaired right upper extremity, Impaired left upper extremity Prognosis: Good Evaluation/Treatment Tolerance: Patient limited by pain Medical Staff Made Aware: Yes Home with Home Health recommended at time of DC. Plan: Treatment Plan/Goals Established with Patient/Caregiver: Yes OT Plan: Skilled OT OT Frequency: 2-4 times per week until discharge OT Duration: Discharge Subjective I'm hurting, but I want to get up! 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 S/p nitroglycerin x2 and aspirin load prior to arrival. Trop 166 --> 172. EKG with ventricular paced rhythm. Chest pain is reproducible. Found to be volume overloaded with hypertension to SBP 160s. Pending Device Interrogation & MRI Pain: /10 Chest pain At end of session c/o headache Objective Vital Signs: Start- 127/78 79 95% on 2 L End- 139/77 80 92% of 2 L General Visit Information: Others Present: OT Tech Precautions: Medical Precautions: Fall Cognition: Overall Cognitive Status: Within Functional Limits Behavior/Cognition: Alert, Cooperative, Pleasant mood Orientation Level: Oriented X4 Home Living: Type of Home: House Lives With: Alone Home Living Comments: Reports living in 1 story home with 1 step to enter. No AD. Prior Function: Prior Function Comments: IND with ADL and IADL. Doesn't drive. Friends help him get places. No falls in the last year. 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 c/o pain, but wanting to get up. Supine to sit min A. DEP to don socks. Stand step t/f to recliner with CGA. Pt brushed his teeth with set up. Left seated in chair with all needs in reach. AM-PAC Daily Activity:Putting on and taking off regular lower body clothing: A Lot Bathing (including washing, rinsing, drying): A Lot Toileting, which includes using toilet, bedpan or urinal: A Lot Putting on and taking off regular upper body clothing: A Little Taking care of personal grooming such as brushing teeth: A Little Eating Meals: None AM-PAC Daily Activity Raw Score: 16 MobilityHighest Level of Mobility Performed (-HLM): Transferred to chair/commode Patient Education:Education Documentation Occupational Therapy Plan of Care, taught by Mita Cortes OT at 10/03/2024 1:38 PM. Learner: Patient Readiness: Acceptance Method: Explanation Response: Verbalizes Understanding, Needs Reinforcement Education CommentsNo comments found. Goals:Encounter Goals Encounter Goals (Active) Patient will perform transfer to toilet with mod IND. Start: 10/03/24 Expected End: 11/03/24 Patient will perform grooming with standing at sink with mod IND. Start: 10/03/24 Expected End: 11/03/24 Patient will perform lower body dressing with mod IND. Start: 10/03/24 Expected End: 11/03/24 Patient will perform toileting with mod IND. Start: 10/03/24 Expected End: 11/03/24 Within 2 weeks of starting therapy, the patient will demonstrate independence and be compliant in a written HEP with theraband in order strengthen B UE to maximize gains made during therapy. Start: 10/03/24 Expected End: 11/03/24 Treatment Note: If this is the last documented treatment, then it will signify discharge from acute care prior to discharge from the therapy service and will serve as the discharge summary. Mita Cortes OT LE HELPER LE HELPER * Chalino Costello MD - 10/02/2024 11:12 AM BUNDLE HELPER [facility] Cardiac Care Unit (CCU) Progress Note Name: Bryan Parada : 1965 Admission Date: 09/30/2024 Admission Diagnosis/Diagnoses: Chest pain, unspecified type [R07.9] Hospital Day: 1 Problem List Principal Problem: Chest pain, unspecified type Assessment & Plan Assessment Brayn Parada is a 58 y.o. 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 S/p nitroglycerin x2 and aspirin load prior to arrival. Trop 166 --> 172. EKG with ventricular paced rhythm. Chest pain is reproducible. Found to be volume overloaded with hypertension to SBP 160s. 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 2020: nonobstructive - [facility] 2023: RA mean 6mmHg RV 37/10 mmHg PA 39/22 mmHg (mean PA 28 mmHg) PCWP mean 17 mmHg CO 3.71 CI 1.48 - S/p lasix 40 IV in ED - Home meds: Amiodarone, Eliquis, atorva, jardiance 10, lisinopril 5, metoprolol XL 25, aldactone 25 - Trop 166 --> 172 --> 88 - BNP 833 - TTE: LV severely dilated, EF 5-10%, grade II diastolic dysfunction; RV dilation; LA dilation; RA dilation; RVSP 41 mmHG; trace AR; mild MR;mild-mod TR PLAN: > Aspirin 81 > Atorvastatin 80 > Hydralazine 10 > Isordil 5 > Hold jardiance, lisinopril, metoprolol, aldactone due to GIUSEPPE and c/f acute HF exacerbation > Bumex 2mg IV TID #Reproducible Chest Pain- Likely MSK PLAN: > Lidocaine patch > Tylenol Neuro/Psych: #Hx of CVA (2021, cardioemblic) #L Arm Numbness - Patient reports left arm numbness for several days, he states that his prior stroke presented with left arm numbness but his deficits had resolved previously - May be recrudescence vs subacute stroke - CTH no acute pathology PLAN: > MRI brain > aspirin and atorvastatin as above #Mood Disorder> Continue buspirone 5mg BID Respiratory:#Pulmonary Edema #DELGADO - Patient reporting several weeks of worsening DELGADO - Saturating well on room air - CXR: Enlarged cardiac silhouette with pulmonary vascular congestion and interstitial pulmonary edema. PLAN: > Diuresis as above #PRAVEEN- Chest pain likely 2/2 untreated PRAVEEN as it worsens at night during sleep PLAN: > CPAP ordered Renal/Electrolytes:#GIUSEPPE on CKD3 - Cr 1.6 (baseline 1.4 in 08/2024) - Likely cardiorenal PLAN: > Strict I&Os > Diuresis as above > Trend Cr GI/Nutrition: - No acute concerns PLAN: > Heart healthy diet > Miralax, senna PRN Endocrine: #T2DM PLAN: > A1c, TSH > SSI Infectious Disease: - No acute concerns Heme/Onc: - No acute concerns MSK/Skin: - No acute concerns PLAN: > PT/OT consulted Active Consultants: None ICU Quality MeasuresCode Status: Code Status: Full Code Drips (gtt): None DVT: apixaban - 5 MG heparin - 50 units/mL Diet: Adult Diet Heart Healthy Bowel: Miralax, senna PRN PUD Prophylaxis: Home PPI Lines: IV Access: Peripheral IV 10/01/24 Left Antecubital (Active) , Urinary Catheter: , Drain(s): , NG Tube: , and Dialysis Catheter(s): PT/OT: Consulted Emergency Contact:[email or web address] Dispo: CCU pending clinical improvement This patient was seen and staffed with attending physician, Dr. Jules Valverde MD;Hashim *. See the attending attestation for further details and final recommendations. Chalino Costello [facility], PGY-2 4:39 PM 03/02/25 Subjective Subjective/Overnight Events:Patient reports continued 8/10 chest pain that occurs when he is sleeping. It has not improved at all since admission. He requested morphine for the pain. ObjectiveObjective: Vital SignsCurrent: Visit Vitals BP (!) 141/100 Pulse 91 Temp 36.4 ?C (97.6 ?F) Resp 20 24 Hour:Vitals: 10/02/24 0700 10/02/24 0900 10/02/24 1100 10/02/24 1300 BP: (!) 145/102 132/82 (!) 130/101 (!) 141/100 Pulse: 80 71 82 91 Resp: 21 20 19 20 Temp: SpO2: 91% 92% 94% 95% Intake/Output: No intake/output data recorded. No intake or output data in the 24 hours ending 10/02/24 1639 Net intake/output since admission: Net IO Since Admission: No IO data has been entered for this period [10/02/24 1639] PHYSICAL EXAMGen: NAD, resting in bed HEENT: L prosthetic eye, R pupil round and reactive, nares patent, MMM Neck: supple neck CV: RRR, no murmurs, reproducible midsternal chest pain Lung: Normal work of breathing, CTAB, on room air Abd: Soft, nt/nd Ext: 2+ radial pulse, no edema noted Neuro: Aox3, LUE strength 4/5, RUE 5/5 (patient says this has been going on for several days) Skin: warm, well perfused, no jaundice, non-erythematous Psych: Appropriate mood and congruent affect WeightWt Readings from Last 1 Encounters: 10/01/24 95 kg (209 lb 7 oz) Labs: Recent Results (from the past 16 hours) Comprehensive metabolic panel Collection Time: 10/02/24 3:24 AM Result Value Ref Range Sodium Lvl 140 136 - 145 mEq/L Potassium Lvl 3.2 (L) 3.4 - 4.5 mEq/L Chloride Lvl 103 98 - 107 mEq/L CO2 Lvl 30.1 20.0 - 31.0 mEq/L Anion Gap 10.1 10.0 - 20.0 mEq/L Glucose Lvl 102 (H) 70 - 99 mg/dL Creatinine Lvl 1.47 (H) 0.7 - 1.30 mg/dL BUN 20 9 - 23 mg/dL B/C Ratio 14 6 - 25 Protein 7.0 5.7 - 8.2 g/dL Albumin Lvl 3.4 3.4 - 5.0 g/dL Globulin, Calc 3.6 2.0 - 4.0 g/dL Albumin/Globulin Ratio 0.94 0.7 - 1.6 Calcium Lvl 9.0 8.3 - 10.6 mg/dL ALT 24 7 - 40 U/L AST 29 12 - 40 U/L Alkaline Phosphatase 64 46 - 116 U/L Bilirubin Total 0.90 0.30 - 1.20 mg/dL eGFR 55 (L) >60 mL/min/1.73m2 Magnesium Level Collection Time: 10/02/24 3:24 AM Result Value Ref Range Magnesium 1.84 1.6 - 2.60 mg/dL Phosphorus Level Collection Time: 10/02/24 3:24 AM Result Value Ref Range Phosphorus Lvl 4.2 2.4 - 5.1 mg/dL Lipid Panel w/calculated LDL Collection Time: 10/02/24 3:24 AM Result Value Ref Range Triglycerides 88 0 - 200 mg/dL Cholesterol 150 <200 mg/dL LDL (Calculated) 84 0 - 99 mg/dL HDL Cholesterol 48.4 mg/dL VLDL 18 CHD Risk 3.10 (L) 4.00 - 7.30 PT and PTT Collection Time: 10/02/24 3:24 AM Result Value Ref Range Prothrombin Time (PT) 14.1 12 - 14.7 Seconds INR 1.07 0.85 - 1.17 PTT 79.6 (H) 22.9 - 35.8 Seconds Hemoglobin A1c AM Collection Time: 10/02/24 3:24 AM Result Value Ref Range Hgb A1C 5.95 (H) <=5.60 % Complete Blood Count Collection Time: 10/02/24 3:24 AM Result Value Ref Range WBC 4.13 3.92-.10.07 10*3/uL RBC 5.47 4.27 - 6.02 10*6/uL NRBC % 0.0 0 /100 WBC Hgb 14.3 12.4 - 17.4 g/dL Hct 45.1 37.1 - 50.8 % MCV 82.4 79.2 - 96.8 fL MCH 26.1 26.1 - 32.4 pg MCHC 31.7 31.2 - 36.1 g/dL RDW - SD 55.2 (H) 34.0 - 37.0 fL Plt Count 186 160 - 381 10*3/uL MPV 10.7 9.0 - 12.0 fL Automated Differential Collection Time: 10/02/24 3:24 AM Result Value Ref Range Segs % 40.0 (L) 40.6 - 75.7 % Lymphs % 44.3 14.9 - 47.8 % Monos % 12.1 4.2 - 12.6 % Eos % 2.9 0.2 - 5.0 % Basos % 0.5 0.2 - 1.3 % Immature Grans % 0.2 0.1 - 1 % Segs # 1.65 1.48 - 6.56 10*3/uL Lymphs # 1.83 0.86 - 3.84 10*3/uL Monos # 0.50 0.29 - 0.96 10*3/uL Eos # 0.12 0.00 - 0.46 10*3/uL Basos # 0.02 0.01 - 0.08 10*3/uL Imm Grans # 0.01 0.01 - 0.07 10*3/uL PT and PTT Collection Time: 10/02/24 9:20 AM Result Value Ref Range Prothrombin Time (PT) 14.1 12 - 14.7 Seconds INR 1.07 0.85 - 1.17 PTT 87.2 (H) 22.9 - 35.8 Seconds Radiology Review: Transthoracic echo (TTE) complete Left Ventricle: Left ventricle is severely dilated. Increased wall thickness in the left ventricle. Severely reduced systolic function with an estimated EF of 5 - 10%. Grade II diastolic dysfunction of the left ventricle. Right Ventricle: Right ventricle is dilated. Lead present in the right ventricle. Reduced systolic function in the right ventricle. Left Atrium: Left atrium is severely dilated. Right Atrium: Right atrium is dilated. Aortic Valve: Aortic valve is trileaflet. Mildly thickened leaflets in the aortic valve. Trace aortic regurgitation present. No aortic stenosis present. Mitral Valve: Mildly thickened leaflets in the mitral valve. Tethering of the leaflet present in the mitral valve. Mild mitral regurgitation present. Tricuspid Valve: Tricuspid valve is structurally normal. Mild to moderate tricuspid regurgitation present. RVSP is elevated at 41.44 mmHg. Pulmonic Valve: Mild to moderate pulmonic regurgitation present. IVC/SVC: IVC diameter is normal. Normal respiratory variation. Pericardium: Trivial pericardial effusion present. Echo contrast used for endocardial border definition. Scheduled Medications: allopurinol, 300 mg, Oral, Daily amiodarone, 200 mg, Oral, Daily aspirin EC, 81 mg, Oral, Daily atorvastatin, 80 mg, Oral, Daily bumetanide, 2 mg, Intravenous, TID busPIRone, 5 mg, Oral, BID diclofenac sodium, 2 g, Topical, TID [Held by provider] empagliflozin, 10 mg, Oral, Daily gabapentin, 100 mg, Oral, TID hydrALAZINE, 10 mg, Oral, q8h isosorbide dinitrate, 5 mg, Oral, TID lidocaine, 1 patch, Apply externally, Daily oxyCODONE, 2.5 mg, Oral, Once pantoprazole, 40 mg, Oral, Daily before breakfast Potassium chloride, 40 mEq, Oral, Once sodium chloride, 10 mL, Intravenous, q12h MIRA PRN Medications: PRN medications: acetaminophen, dextrose, dextrose, glucagon, insulin lispro, polyethylene glycol (PEG) 3350, sodium chloride Drips:heparin, 0.1-40 Units/kg/hr, Last Rate: 13 Units/kg/hr (10/02/24 0900) Cosigned by Milan Valverde MD at 10/03/2024 2:38 AM CST LE HELPER LE HELPER Associated attestation - Milan Valverde MD - 10/03/2024 2:38 AM BUNDLE HELPER The patient was seen and examined with the resident and/or fellow. The relevant lab results, imaging and EKGs were personally reviewed, and the medications were reconciled. I agree with above mentioned assessment and plan. [place] [id number] 16:27:14Scheduled Orders Scheduled Referrals Name Type Priority Associated Diagnoses Order Schedule Cardiac Rehabilitation Phase II Referral Outpatient Referral Routine Chronic systolic heart failure (CMS/HCC) ([facility]) Expected: 10/03/2024 (Approximate), Expires: 10/03/2025 Cardiac Rehabilitation Phase II Referral Outpatient Referral Routine Chronic systolic heart failure (CMS/HCC) ([facility]) Expected: 10/03/2024 (Approximate), Expires: 10/03/2025 Health Maintenance Due Date Last Done Comments CT Colonography 1966 Colonoscopy 1966 Colorectal Cancer Screening 1966 FIT-DNA 1966 FIT 1966 FOBT 1966 Medicare Annual Wellness (AWV) 1966 Sigmoidoscopy 1966 Annual Physical 1969 Diabetes: Foot Exam 1976 Diabetes: Retinopathy Screening 1976 DTaP/Tdap/Td Vaccines (1 - Tdap) 1985 Diabetes: Urine Protein Screening 1985 Hepatitis B Vaccines (1 of 3 - 19+ 3-dose series) 1985 Zoster Vaccines (1 of 2) 2016 Pneumococcal Vaccine: Pediat rics (0 to 5 Years) and At-Risk Patients (6 to 64 Years) (2 of 2 - PCV) 06/13/2023 06/13/2022 Influenza Vaccine (#1) 2024 06/13/2022 Diabetes: Hemoglobin A1C 04/04/2025 10/02/2024 Lipid Panel 10/02/2025 10/02/2024 HIB Vaccines Aged Out No longer eligi ble based on patient's age to complete this topic HPV Vaccines Aged Out No longer eligi ble based on patient's age to complete this topic Hepatitis A Vaccines Aged Out No long er eligible based on patient's age to complete this topic IPV Vaccines Aged Out No longer eligi ble based on patient's age to complete this topic Meningococcal Vaccine Aged Out No reynold elham eligible based on patient's age to complete this topic Rotavirus Vaccines Aged Out No longer eligible based on patient's age to complete this topic [id number]08:00 Home discharge instruction and medication instruction explained to the pt. Verbalized understanding. [facility] [id number] 14:23:32 Images from the original note were not included. [id number] Atorvastatin Brand Name(s): Atorvaliq?, Lipitor?, Caduet? (as a combination product containing Amlodipine, Atorvastatin), Lipqozet? (as a combination product containing Atorvastatin, Ezetimibe), Liptruzet? (as a combination product containing Atorvastatin, Ezetimibe); also available generically WHY is this medicine prescribed? Atorvastatin is used together with diet, weight loss, and exercise to reduce the risk of heart attack and stroke and to decrease the chance that heart surgery will be needed in people who have heart disease or who are at risk of developing heart disease. Atorvastatin is also used to decrease the amount of fatty substances such as low-density lipoprotein (LDL) cholesterol ('bad cholesterol') and triglycerides in the blood and to increase the amount of high-density lipoprotein (HDL) cholesterol ('good cholesterol') in the blood. Atorvastatin may also be used to decrease the amount of cholesterol and other fatty substances in the blood in children and teenagers 10 to 17 years of age who have familial heterozygous hypercholesterolemia (an inherited condition in which cholesterol cannot be removed from the body normally). Atorvastatin is in a class of medications called HMG-CoA reductase inhibitors (statins). It works by slowing the production of cholesterol in the body to decrease the amount of cholesterol that may build up on the joaquin of the arteries and block blood flow to the heart, brain, and other parts of the body. Accumulation of cholesterol and fats along the joaquin of your arteries (a process known as atherosclerosis) decreases blood flow and, therefore, the oxygen supply to your heart, brain, and other parts of your body. Lowering your blood level of cholesterol and fats with atorvastatin has been shown to prevent heart disease, angina (chest pain), strokes, and heart attacks. HOW should this medicine be used? Atorvastatin comes as a tablet and suspension (liquid) to take by mouth. The tablet is usually taken once a day with or without food. The suspension is usually taken once a day on an empty stomach (at least 1 hour before or 2 hours after a meal).Take atorvastatin at around the same time every day. Follow the directions on your prescription label carefully, and ask your doctor or pharmacist to explain any part you do not understand. Take atorvastatin exactly as directed. Do not take more or less of it or take it more often than prescribed by your doctor. Your doctor may start you on a low dose of atorvastatin and gradually increase your dose, not more than once every 2 to 4 weeks. If you are taking the suspension, do not use a household spoon to measure your dose. Use a properly marked measuring device such as a medicine spoon or oral syringe. Ask your doctor or pharmacist if you need help getting or using a measuring device. Continue to take atorvastatin even if you feel well. Do not stop taking atorvastatin without talking to your doctor. Are there OTHER USES for this medicine? This medication may be prescribed for other uses; ask your doctor or pharmacist for more information. What SPECIAL PRECAUTIONS should I follow? Before taking atorvastatin, ? tell your doctor and pharmacist if you are allergic to atorvastatin, any other medications, or any of the ingredients in atorvastatin tablets and suspension. Ask your pharmacist for a list of the ingredients. ? Tell your doctor and pharmacist what prescription and nonprescription medications, vitamins, nutritional supplements, and herbal products you are taking or plan to take while taking atorvastatin. Your doctor may need to change the doses of your medications or monitor you carefully for side effects. ? The following nonprescription products may interact with atorvastatin: cimetidine (Tagamet), and niacin. Be sure to let your doctor and pharmacist know that you are taking these medications before you start taking atorvastatin. Do not start any of these medications while taking atorvastatin without discussing with your healthcare provider. ? tell your doctor if you have or ever had liver disease. Your doctor will order laboratory tests to see how well your liver is working even if you do not think you have liver disease. Your doctor will probably tell you not to take atorvastatin if you have liver disease or if the tests show you may be developing liver disease. ? tell your doctor if you drink more than 2 alcoholic beverages daily, if you are 65 years of age or older, and if you have or have ever had muscle aches or weakness, diabetes, seizures, low blood pressure, or thyroid or kidney disease. ? tell your doctor if you are or plan to become . If you become while taking atorvastatin, stop taking atorvastatin and call your doctor immediately. Atorvastatin may harm the fetus. ? tell your doctor if you are or plan to breastfeed. You should not breastfeed while you are taking this medication. ? if you are having surgery, including dental surgery, tell the doctor or dentist that you are taking atorvastatin. If you are hospitalized due to serious injury or infection, tell the doctor who treats you that you are taking atorvastatin. ? ask your doctor about the safe use of alcoholic beverages while you are taking atorvastatin. Alcohol can increase the risk of serious side effects. What SPECIAL DIETARY instructions should I follow? Eat a low-fat, low-cholesterol diet. Be sure to follow all exercise and dietary recommendations made by your doctor or dietitian. You can also visit the National Cholesterol Education Program (NCEP) website for additional dietary information at https://www.nhlbi.nih.gov/health/public/heart/chol/chol_tlc.pdf. Avoid drinking large amounts [more than 1.2 liter (approximately 1 quart) per day] of grapefruit juice while taking atorvastatin. What should I do IF I FORGET to take a dose? If you miss a dose of the tablet, skip the missed dose and continue your regular dosing schedule. Do not take a double dose to make up for a missed one. If you miss a dose of the suspension, take the missed dose as soon as you remember it. However, if it is less than 12 hours until your next scheduled dose, skip the missed dose and continue your regular dosing schedule. Do not take a double dose to make up for a missed one. What SIDE EFFECTS can this medicine cause? Some side effects can be serious. The following symptoms are uncommon, but if you experience any of them, call your doctor or get emergency medical help immediately: ? muscle pain, tenderness, or weakness ? lack of energy ? fever ? chest pain ? nausea ? extreme tiredness ? weakness ? unusual bleeding or bruising ? loss of appetite ? pain in the upper right part of the stomach ? flu-like symptoms ? dark colored urine ? yellowing of the skin or eyes ? rash ? hives ? itching ? difficulty breathing or swallowing ? swelling of the face, throat, tongue, lips, eyes, hands, feet, ankles, or lower legs ? hoarseness Atorvastatin may cause other side effects. Call your doctor if you have any unusual problems while taking this medication. If you experience a serious side effect, you or your doctor may send a report to the Food and Drug Administration's (FDA) MedWatch Adverse Event Reporting program online (https://www.fda.gov/Safety/MedWatch) or by phone ( ). What should I know about STORAGE and DISPOSAL of this medication? Keep this medication in the container it came in, tightly closed, and out of reach of children. Store it at room temperature and away from excess heat and moisture (not in the bathroom). Unneeded medications should be disposed of in special ways to ensure that pets, children, and other people cannot consume them. However, you should not flush this medication down the toilet. Instead, the best way to dispose of your medication is through a medicine take-back program. Talk to your pharmacist or contact your local garbage/recycling department to learn about take-back programs in your community. See the FDA's Safe Disposal of Medicines website (https://goo.gl/c4Rm4p) for more information if you do not have access to a take-back program. It is important to keep all medication out of sight and reach of children as many containers (such as weekly pill minders and those for eye drops, creams, patches, and inhalers) are not child-resistant and young children can open them easily. To protect young children from poisoning, always lock safety caps and immediately place the medication in a safe location - one that is up and away and out of their sight and reach. https://www.upandaway.org What should I do in case of OVERDOSE? In case of overdose, call the poison control helpline at . Information is also available online at https://www.poisonhelp.org/help. If the victim has collapsed, had a seizure, has trouble breathing, or can't be awakened, immediately call emergency services at 221. What OTHER INFORMATION should I know? Keep all appointments with your doctor and the laboratory. Your doctor may order certain lab tests during your treatment , especially if you develop symptoms of liver damage. Before having any laboratory test, tell your doctor and the laboratory personnel that you are taking atorvastatin. Do not let anyone else take your medication. Ask your pharmacist any questions you have about refilling your prescription. It is important for you to keep a written list of all of the prescription and nonprescription ([id number]) medicines you are taking, as well as any products such as vitamins, minerals, or other dietary supplements. You should bring this list with you each time you visit a doctor or if you are admitted to a hospital. It is also important information to carry with you in case of emergencies. This report on medications is for your information only, and is not considered individual patient advice. Because of the changing nature of drug information, please consult your physician or pharmacist about specific clinical use. The [place] [employer] represents that the information provided hereunder was formulated with a reasonable standard of care, and in conformity with professional standards in the field. The [place] makes no representations or warranties, express or implied, including, but not limited to, any implied warranty of merchantability and/or fitness for a particular purpose, with respect to such information and specifically disclaims all such warranties. Users are advised that decisions regarding drug therapy are complex medical decisions requiring the independent, informed decision of an appropriate health child care sitter, and the information is provided for informational purposes only. The entire monograph for a drug should be reviewed for a thorough understanding of the drug's actions, uses and side effects. The [employer] does not endorse or recommend the use of any drug. The information is not a substitute for medical care. AHFS? Patient Medication Information?. ? Copyright, 2023. The [employer]?, [address], [address], [place], [place]. All Rights Reserved. Duplication for commercial use must be authorized by [facility]. Selected Revisions: February 20, 2024. AHFS? Patient Medication Information?. ? Copyright, 2024 [facility]2025-03-03 14:23:31 Images from the original note were not included. [id number] Recognizing a Heart Attack or Angina If you have risk factors for heart problems, you should always watch for signs of angina or a heart attack. If you have a sudden heart problem, getting treatment right away could save your life. Risk factors for a heart attack include: ? Being older ? High cholesterol ? High blood pressure ? Having an immediate family member such as a brother, sister, or parent who had a heart attack before age 50 ? Diabetes ? Smoking ? Being overweight ? Smoking or using stimulants such as cocaine or amphetamine ? High stress There are other risk factors, including eating a high-fat diet and not getting much exercise. Understanding angina and heart attack ? Angina is an uncomfortable burning feeling, tightness, or pressure in the chest, back, neck, throat, or jaw. It can be painful. It means not enough blood is getting to the heart muscle. This is usually from a blocked artery in the heart. Angina is a sign that you may be having, or are about to have, a heart attack. You need to call 911 right away. ? A heart attack is also known as acute myocardial infarction (AMI). It's what happens when blood and oxygen can't get to part of the heart muscle. That part of the heart muscle is damaged and starts to . If enough of the heart is affected, it won't be able to beat correctly. This will severely limit its ability to send blood to the brain and the rest of the body. It may cause . It's vital to get help as soon as possible for a heart attack. Stable angina versus unstable angina Stable angina is also known as chronic angina. It has a typical pattern. It happens when you exert yourself physically or feel a strong emotion. Nitroglycerin, rest, or both will easily ease stable angina symptoms. Stable angina symptoms will most likely feel the same each time you have them. It's important to discuss these symptoms with your healthcare provider. They can be a warning sign of a future heart attack. Unstable angina causes unexpected or unpredictable symptoms, often when you're at rest. Unstable angina is a medical emergency. Angina is also considered unstable if resting and nitroglycerin don't ease symptoms. It's also unstable if symptoms are getting worse, happening more often, or lasting longer. These symptoms may mean you have a severe blockage or a spasm of a heart artery. Unstable angina is commonly a sign of an active heart attack. Remember the following tips: ? Stable angina symptoms should go away with rest or medicine. If they don?t go away, call 911! ? Stable angina symptoms last for only a few minutes. If they last longer than that, or if they go away and come back, you may be having a heart attack. Call 911! ? If you have shortness of breath, cold sweat, upset stomach (nausea), or lightheadedness, call 911! For angina that shows up for the first time, there is only 1 response: ?Call 911! You should never diagnose angina by yourself. If these symptoms are new, or worse than normal, call 911! Warning signs of a heart attack If you have symptoms that you can?t explain, call [address] drive yourself to the emergency room (ER). These are warning signs of a possible heart attack: ? Chest discomfort. Most heart attacks involve discomfort in the center of the chest that lasts more than a few minutes, or that goes away and comes back. It can feel like uncomfortable pressure, squeezing, fullness, or pain. ? Discomfort in other parts of the upper body. Symptoms can include pain or discomfort in 1 or both arms, the back, neck, jaw, or stomach. ? Shortness of breath, with or without chest discomfort ? Other signs may include breaking out in a cold sweat, nausea, or lightheadedness. If you think someone is having a heart attack, call 911 instead of driving the person to the ER. After you call 911, you'll be told what to do. The freight dispatcher may tell you to give the person aspirin while waiting for help to arrive. If the dispatcher doesn?t tell you to do this, don?t give the person aspirin. Aspirin can be dangerous in certain cases. ? Note for women. Like men, women often have chest pain or discomfort as a heart attack symptom. But women are somewhat more likely than men to have less common symptoms. These include shortness of breath, abnormal tiredness, lightheadedness, heartburn, nausea and vomiting, back pain, or jaw pain. ? Note for older adults. Older people may also not have typical symptoms of a heart attack. They may have symptoms that include fainting, weakness, or confusion. Ignoring these symptoms can lead to critical illness or . You should get your symptoms checked out right away. ? If you've had a heart attack. People who have had 1 heart attack are at risk of having another. Your provider may prescribe medicine such as nitroglycerin to take when chest pain starts. Or you may need medicines to lower your heart rate and blood pressure. This is to prevent angina and another heart attack. Remember to take any medicines your provider has given. Don't stop taking them without speaking with your provider first. If you have diabetes: Silent heart problems Over time, high blood sugar can damage nerves in your body. This may keep you from feeling pain caused by a heart problem, leading to a ?silent? heart problem. If you don?t feel symptoms, you're less able to know that you may be having a heart attack and get treatment right away. Talk with your healthcare provider about how to control your blood sugar levels and lower your risk for silent heart problems. Last Reviewed Date: 2023 00:00:00 ? 6335-5030 [employer]. All rights reserved. This information is not intended as a substitute for professional medical care. Always follow your healthcare professional's instructions. [id number] 13:51:31 Problem: Pain - Adult Goal: Verbalizes/displays adequate comfort level or baseline comfort level Outcome: Progressing Problem: Safety - Adult Goal: Free from fall injury Outcome: Progressing Problem: Discharge Planning Goal: Discharge to home or other facility with appropriate resources Outcome: Progressing Flowsheets (Taken 10/03/2024 0800) Discharge to home or other facility with appropriate resources: Identify barriers to discharge with patient and caregiver Problem: Chronic Conditions and Co-morbidities Goal: Patient's chronic conditions and co-morbidity symptoms are monitored and maintained or improved Outcome: [facility]ing [facility]14 Bryan Parada is a 58 y.o. male Current Diagnoses Listed: Patient Active Problem List Diagnosis Chest pain, unspecified type Current Bedding Status: Inpatient Insurance: [employer] Midnights Crossed at Time of Review: Two Midnights Recommendation: Inpatient Status Chart review inclusive of information currently available from: Physician or Procure Notes and Reports, Currently available Labs and Imaging Reports, Nursing Notes, Vital Signs, Relevant Historical Data if Available, and Orders or Scheduled Procedures. Team Notification: Status Change Not Required, No Message Sent Final Recommendation(s): Secondary Review Review Type: Initial Initial Recommendation: Inpatient Secondary Review Status: Submitted for review Rationale for Recommendation(s): Chest pain, reproducible, found to be volume overloaded. EF 5-10%, remains on iv diuresis. Agree with ip [facility] Physician[facility] GreenvilleBsatcli7694-70-88 01:09:33 The patient is Moderately Stable - Low risk of patient condition declining or worsening The patient's goals for the shift include eat and sleep The clinical goals for the shift include VSS, stay safe Over the shift, the patient did not make progress toward the following goals. Barriers to progression include pending diagnostic testing. Recommendations to address these barriers include follow care plan. [facility]2025-02-27 14:45:00 Images from the original note were not included. Venipuncture collection performed by clean technique on the right anticubitus. Total of 1 attempts were made. Slight pressure and a bandage/dressing were applied to the site(s). The patient experienced no complications. The following specimens were processed according to instructions and sent to [facility] laboratories per lab order on 09/29/2024: LT BLUE SST 1 RED LAV PPT DK GREEN (LiHep) DK GREEN (SodH) HERZOG DK BLUE (K2) DK BLUE (S) ACD Blood Culture NIPT/NTD Ladd orders only [facility]2025-02-18 16:37:31 Problem: Discharge Planning Goal: Adequate for discharge Outcome: Adequate for discharge Goal: Adequate to move to next level of care Outcome: Adequate for discharge Goal: Knowledge of medication management Outcome: Adequate for discharge Problem: Cardiac Output - Decreased Goal: Absence of signs and symptoms of decreased cardiac output Outcome: Adequate for discharge Problem: Pain Goal: Control of pain at or below patient's documented comfort goal Outcome: Adequate for discharge Goal: Reduction in pain sensation Outcome: Adequate for discharge Problem: Skin integrity Impaired (Risk or Actual) Goal: Prevention of new skin breakdown Outcome: Adequate for discharge Problem: Tissue Perfusion, Cardiopulmonary - Altered Goal: Circulatory function within specified parameters Outcome: Adequate for discharge Problem: Falls, Risk of Goal: Absence of falls Outcome: Adequate for discharge [facility]2025-02-18 12:05:21 Images from the original note were not included. Pharmacy Recommendations for Patient Admission: No recommendations. The BOAT DOCK OPERATOR medication list has been updated and reflected in the chart below. Please use the BOAT DOCK OPERATOR Med List for ordering home doses during admission. Patient Adherence: Sporadically Non-Adherent to some medications. Source(s) used in interview: Patient, Outpatient Pharmacy, and Medical Records Interview limitations: None Medications Added Medications Removed Medications Modified None None None Allergies as of 09/19/2024 - Reviewed 09/19/2024 Allergen Reaction Noted Imdur [isosorbide mononitrate] Other - See comments 04/04/2020 Pharmacy Updated [facility] Med List Medication Sig acetaminophen-codeine (TYLENOL-CODEINE #3) 300-30 mg tablet Take 1 tablet by mouth 2 (two) times daily as needed for Pain (scale 4-6) or Pain (scale 7-10). Indications: chronic pain, right knee pain amiodarone 200 mg tablet Take 1 tablet by mouth in the morning. furosemide 40 mg tablet Take 1.5 tablets by mouth in the morning. atorvastatin 80 mg tablet Take 1 tablet by mouth at bedtime. lisinopriL 5 mg tablet Take 1 tablet by mouth in the morning. metoprolol succinate XL 25 mg 24 hr tablet Take 1/2 (one-half) tablet by mouth in the morning. apixaban 5 mg tablet Take 1 tablet by mouth in the morning and 1 tablet in the evening. Indications: atrial fibrillation busPIRone 5 mg tablet Take 1 tablet by mouth in the morning and 1 tablet in the evening. empagliflozin (JARDIANCE) 10 mg tablet Take 1 tablet by mouth in the morning. gabapentin 100 mg capsule Take 1 capsule by mouth in the morning and 1 capsule at noon and 1 capsule in the evening. omeprazole 40 mg capsule Take 1 capsule by mouth in the morning. spironolactone (ALDACTONE) 25 mg tablet Take 1 tablet by mouth in the morning. methocarbamoL 500 mg tablet Take 1 tablet by mouth 3 (three) times daily as needed for Pain (scale 7-10) (Knee pain). allopurinoL 300 mg tablet Take 1 tablet by mouth every morning. Outpatient Pharmacy Contact Information: [facility]pharm[facility] #[id number] - [place], [place] - [address] [facility] [address] [facility] [address] [facility] [id number] [facility] - [address] [place] [id number] Thank you for the opportunity to participate in the care of this patient. Ava Logan RPH 12:04 PM, 09/20/[address] [facility] Department of Pharmacy - [facility] Phone: ADC: [phone] RAFAEL Logan RUST [id number] 01:06:47 Problem: Discharge Planning Goal: Adequate for discharge [...] Absence of falls Outcome: Progressing as expected LE HELPER Fiona Morales [facility] [place] - [id number] 16:46:18 Problem: Discharge Planning Goal: Adequate for discharge [...] Absence of falls Outcome: Progressing as expected LE HELPER Portia Jerome [facility]Acsgyy3083-18-93 15:19:01 D/w Dr. Ladd. Patient pending admission and awaiting bed. Attempted to call daughter back to inform of plan. No answer, unable to lvm. LE HELPER Cindy Norton [facility] ProvidenceYhixkp9926-48-52 14:33:50 Patient admitted to 2226 for diagnosis of chest pain Patient agrees to admission, discussed plan of care with patient and family. Patient is awake, alert, oriented, resp reg unlabored, color appropriate for race, PIV intact No adverse reaction to medications administered while in ED Belongings with patient to unit Report to Cristela BAKER LE HELPER Luis Kaiser [facility] ProvidenceFtmxeb9968-24-17 13:01:19 Bryan Parada is a 58 year old male Pts daughter is calling saying the pt is admitted and they want to send him home but the pt is still having chest pain. Advised the daughter that once the pt is admitted they need to follow the advise of the Dr that is attending them but daughter still wanted to me leave a message with Dr Ladd to see what he advises. Daughter is wanting the pt to say for at least a few more days LE HELPER Milan [facility]Mer[facility] HospitalObtmsz4972-39-51 10:43:28 Patient arrived by [facility] for chest pain and shortness of breath with exertion. Patient was seen here yesterday for same complaint. RAFAEL Rodriguez RNMercy Health St. Elizabeth [facility] HospitalWlfrnm9549-53-32 10:39:00 Associated Order(s): EKG-12 Lead ROUTINE ONCE Pre-Procedure Diagnose(s): Chest pain, unspecified type Post-Procedure Diagnose(s): Chest pain, unspecified type [facility] Emergency Department Note Patient Name: Bryan Parada Date of : 1965 58 year old male Treatment Room: MS2/[facility] Primary Care Physician: Brooks Barker Patient Escorted by: Self [9] Mode of Arrival: EMS - [facility] ([facility]) [43] EMS Treatment Prior to ED Arrival: BOAT DOCK OPERATOR treatment: None Travel and Exposure Screening: Symptoms Does patient have any of these symptoms?: (not recorded) Exposure Screening Has patient had contact with someone with a communicable disease in the last month?: (not recorded) Diseases exposed to:: (not recorded) Is Patient ?: (not recorded) Exposure Date: (not recorded) Chief Complaint: Chief Complaint Patient presents with Chest Pain Shortness of Breath History of Present Illness: Patient with past medical history of chronic combined systolic and diastolic heart failure, diabetes, diverticulosis, metabolic syndrome, nonischemic cardiomyopathy, obesity, stroke to the emergency department due to chest pain, he states that he has chest pain but he cannot say a timeline, he had chest pain yesterday and today, he was evaluated in the emergency department but his pain has not gotten any better for which he came today again, his pain is located over the anterior part of the chest, for constant but patient is not able to describe characteristics of pain, he states that he takes his Eliquis at home and he also takes his water pill but it does not seem to be working History provided by: Patient security manager used: No Past Medical History/Immunizations: Past Medical [...] Tetanus received in last 5 years: Unknown Childhood immunizations: Up-to-date Allergies: Allergies Allergen Reactions Imdur [Isosorbide Mononitrate] Other - See comments Severe hypotension, likely from severe LVH per Dr. Sanderson. Past Social History: Tobacco Use Never smoked or used smokeless tobacco. Passive Exposure: Past Vaping Use Never used Alcohol Use Not Currently. Comments: 1 cup of whiskey but last dirnk in December Drug Use Never. Sexual Activity Sexually active; Partners: Male, Female; Control/Protection: Condom. Past Surgical History: Past Surgical History: Procedure Laterality Date COLONOSCOPY N/A 02/19/2017 Surgeon: Fran Canchola MD; Location: [facility] OR [facility] ESOPHAGOGASTRODUODENOSCOPY N/A 07/20/2019 Surgeon: Maddi Ballesteros MD; Location: [facility] OR [facility] ESOPHAGOGASTRODUODENOSCOPY N/A 04/03/2021 Surgeon: Fran Trinh MD; Location: Endoscopy () OR Location JOINT SURGERY Right 11/2016 Right knee PACEMAKERS INSERTION Review of Systems: Review of Systems Constitutional: Negative for fever. HENT: Negative for congestion and ear pain. Eyes: Negative for discharge. Respiratory: Positive for shortness of breath. Negative for cough. Cardiovascular: Positive for chest pain. Gastrointestinal: Negative for abdominal pain, nausea and vomiting. Genitourinary: Negative for decreased urine volume. Musculoskeletal: Negative for arthralgias. Neurological: Negative for seizures. Psychiatric/Behavioral: Negative for confusion. Physical Exam: ED Triage Vitals [09/19/24 1044] Weight 129.7 kg (286 lb) Actual or estimated Height 1.88 m (6' 2") BP (!) 173/125 Pulse 92 Resp 15 Temp 36.4 ?C (97.6 ?F) Temp source Oral SpO2 97 % Measured on Room air Physical Exam Vitals and nursing note reviewed. Constitutional: Appearance: He is obese. He is ill-appearing. He is not toxic-appearing or diaphoretic. HENT: Head: Normocephalic. Right Ear: External ear normal. Left Ear: External ear normal. Cardiovascular: Rate and Rhythm: Normal rate. Pulses: Normal pulses. Pulmonary: Effort: Pulmonary effort is normal. Abdominal: Palpations: Abdomen is soft. Musculoskeletal: General: No tenderness. Cervical back: Normal range of motion. Neurological: General: No focal deficit present. Mental Status: He is alert. Psychiatric: Mood and Affect: Mood normal. Radiology: No orders to display Lab Results: Lab Results - No data to display EKG: If EKG completed, see Procedure Note. Orders and Treatments: Orders Placed This Encounter Procedures COMP. METABOLIC PANEL (11194) TROPONIN I N-TERMINAL PRO-BNP Influenza A B RSV COVID NAAT CBC WITH DIFF Magnesium Orders Placed This Encounter Medications furosemide (LASIX) injection 40 mg nitroglycerin (NITROSTAT) sublingual tablet 0.4 mg First Provider Eval: ED Events Date/Time Event User Comments 09/19/24 1047 Medical Screening Begins EVON FRANCES MD -- 09/19/24 1047 First Provider Evaluation EVON FRANCES MD -- ED COURSE Diagnosis/Impression as of 09/19/24 1640 Chest pain, unspecified type Acute on chronic combined systolic and diastolic congestive heart failure Cocaine use Procedures: EKG-12 Lead ROUTINE ONCE Date/Time: 09/19/2024 10:42 AM Performed by: Evon Frances MD Authorized by: Evon Frances MD ECG interpreted by ED Physician in the absence of a reservation manager: yes Interpretation: Interpretation: abnormal Quality: Tracing quality: Limited by artifact Rate: ECG rate: 87 ECG rate assessment: normal Rhythm: Rhythm: paced Pacing: Capture: Complete Ectopy: Ectopy: none QRS: QRS intervals: Wide QRS conduction: LBBB ST segments: ST segments: Non-specific T waves: T waves: non-specific MDM: Medical Decision Making Patient with past medical history of chronic combined systolic and diastolic heart failure, diabetes, diverticulosis, metabolic syndrome, nonischemic cardiomyopathy, obesity, stroke to the emergency department due to chest pain, he states that he has chest pain but he cannot say a timeline, he had chest pain yesterday and today, he was evaluated in the emergency department but his pain has not gotten any better for which he came today again, his pain is located over the anterior part of the chest, for constant but patient is not able to describe characteristics of pain, he states that he takes his Eliquis at home and he also takes his water pill but it does not seem to be working But 1 nitro by EMS improved his chest pain is slightly Differential diagnosis includes but not limited to congestive heart failure, MO, noncardiac pain In emergency department patient with moderate distress due to chest pain, EKG consistent with pacemaker, blood work did not show leukocytosis, no electrolyte imbalance, he has CKD at baseline, mild elevation of BNP, troponin at baseline. He was given a dose of furosemide, sublingual nitro and morphine I discussed case with cardiology, patient will be admitted to the hospital floor to continue with medical management. Drug screen positive for cocaine Problems Addressed: Acute on chronic combined systolic and diastolic congestive heart failure: chronic illness or injury with exacerbation, progression, or side effects of treatment Chest pain, unspecified type: acute illness or injury Cocaine use: acute illness or injury Amount and/or Complexity of Data Reviewed Labs: ordered. Radiology: ordered. Discussion of management or test interpretation with external provider(s): I spoke with cardiology Dr. Ladd who recommends admission due to EF 5%, Risk OTC drugs. Prescription drug management. Parenteral controlled substances. Decision regarding hospitalization. Flowsheet Documentation: Scoring Tools: No data recorded Disposition/Condition: ED Disposition None Discharge Medications: Patient's Medications START taking these medications No medications on file CONTINUE taking these medications which have NOT CHANGED ACETAMINOPHEN-CODEINE (TYLENOL-CODEINE #3) 300-30 MG TABLET Take 1 tablet by mouth 2 (two) times daily as needed for Pain (scale 4-6) or Pain (scale 7-10). Indications: chronic pain, right knee pain ALLOPURINOL 300 MG TABLET Take 1 tablet by mouth every morning. AMIODARONE 200 MG TABLET Take 1 tablet by mouth in the morning. APIXABAN 5 MG TABLET Take 1 tablet by mouth in the morning and 1 tablet in the evening. Indications: atrial fibrillation ATORVASTATIN 80 MG TABLET Take 1 tablet by mouth at bedtime. BLOOD SUGAR DIAGNOSTIC STRIP Check blood sugar 2 times a day. E11.9. Brand per insurance. BLOOD-GLUCOSE METER KIT Check sugars 2 times a day. Dx. Code E11.9 Brand per Insurance BUSPIRONE 5 MG TABLET Take 1 tablet by mouth in the morning and 1 tablet in the evening. EMPAGLIFLOZIN (JARDIANCE) 10 MG TABLET Take 1 tablet by mouth in the morning. FUROSEMIDE 40 MG TABLET Take 1.5 tablets by mouth in the morning. GABAPENTIN 100 MG CAPSULE Take 1 capsule by mouth in the morning and 1 capsule at noon and 1 capsule in the evening. LANCETS MISC Check sugars 1 times a day. Dx Code E11.9. Brand per insurance. LISINOPRIL 5 MG TABLET Take 1 tablet by mouth in the morning. METHOCARBAMOL 500 MG TABLET Take 1 tablet by mouth 3 (three) times daily as needed for Pain (scale 7-10) (Knee pain). METOPROLOL SUCCINATE XL 25 MG 24 HR TABLET Take 1/2 (one-half) tablet by mouth in the morning. OMEPRAZOLE 40 MG CAPSULE Take 1 capsule by mouth in the morning. SPIRONOLACTONE (ALDACTONE) 25 MG TABLET Take 1 tablet by mouth in the morning. START taking Modified Medications as Prescribed No medications on file STOP taking these medications No medications on file Follow-up: Electronically signed by: Evon Frances MD 09/19/24 1640 [facility]2025-02-17 10:39:00 AdmissionCare Guideline: Heart Failure, Inpatient Based on the indications selected for the patient, the bed status of Inpatient was determined to be MET The following indications were selected as present at the time of evaluation of the patient: - Clinical Indications for Admission to Inpatient Care - Admission is indicated for 1 or more of the following: - Anasarca or severe peripheral edema (eg, impairs ability to void or ambulate) AdmissionCare documentation entered by: Evon Myers [facility], 28th edition, Copyright ? 2023 [facility] [employer], [facility] All Rights Reserved. [id number]:35:[id number]:00 [facility]2025-02-17 10:05:05 Spoke with patient and daughter. Patient c/o constant CP with SOB worsened by activity. Patient seen and discharged from [facility] ER last night. Advise patient to go back to ER. Patient's daughter called EMS. Dr. Ladd aware. RAFAEL Norton [facility] ProvidenceOzffzn6428-87-67 09:47:51 Bryan Parada is a 58 year old male Pt complains of chest pain and becoming short of breath when walking x 1 day. Pt was connected to nurse Cindy RAFAEL RaineyMercy Health St. [facility] HospitalQvvmbz7044-02-12 18:06:34 Patient is awake and alert, oriented x4. Speech is clear and appropriate. Respirations even and unlabored, no distress. Ambulatory with steady gait. Reviewed discharge instructions, follow-up care, verbalizes understanding. [facility] Alena Barton [facility]Mnpwhp0915-50-32 15:44:20 Patient received Aspirin in route to the ER from EMS. RAFAEL Alford [facility] ProvidenceVholhx5319-59-45 14:33:42 Patient brought in by [facility] for shortness of breath since this morning. He reports he is on his second pacemaker ([employer]) and has had this liu since Jul. He checks it every morning and this morning he got a light that said to see a doctor. When EMS arrived he also reported he was having chest pain, substernal, squeezing, and rated at 7/10. EMS gave 324 ASA. 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 He states his [employer] machine went off this morning and the machine he has at home flashed a picture of a doctor on the phone and that means he needs to come in. EMS gave aspirin and brought here. He reports he took his home meds this AM and wants to be admitted. Past Medical History/Immunizations: Past Medical History: Diagnosis [...] Tetanus received in last 5 years: Unknown Childhood immunizations: Up-to-date Allergies: Allergies Allergen Reactions Imdur [Isosorbide Mononitrate] Other - See comments Severe hypotension, likely from severe LVH per Dr. Sanderson. Past Social History: Tobacco Use Never smoked or used smokeless tobacco. Passive Exposure: Past Vaping Use Never used Alcohol Use Not Currently. Comments: 1 cup of whiskey but last dirnk in December Drug Use Never. Sexual Activity Sexually active; Partners: Male, Female; Control/Protection: Condom. Past Surgical History: Past Surgical History: Procedure Laterality Date COLONOSCOPY N/A 02/19/2017 Surgeon: Fran Canchola MD; Location: [facility] ESOPHAGOGASTRODUODENOSCOPY N/A 07/20/2019 Surgeon: Maddi Ballesteros MD; Location: [facility] OR [facility] ESOPHAGOGASTRODUODENOSCOPY N/A 04/03/2021 Surgeon: Fran Trinh MD; Location: Endoscopy ([facility]) OR Location JOINT SURGERY Right 11/2016 Right knee PACEMAKERS INSERTION Review of Systems: Review of Systems Physical Exam: ED Triage Vitals Weight 09/18/24 1433 129.7 kg (286 lb) Actual or estimated -- Height 09/18/24 1433 1.88 m (6' 2") BP 09/18/24 1435 (!) 161/118 Pulse 09/18/24 1435 77 Resp 09/18/24 1435 21 Temp 09/18/24 1435 36.7 ?C (98 ?F) Temp source 09/18/24 1435 Oral SpO2 09/18/24 1435 100 % Measured on -- Physical Exam Vitals and nursing note reviewed. Constitutional: General: He is not in acute distress. Appearance: He is not diaphoretic. HENT: Head: Normocephalic and atraumatic. Eyes: Pupils: Pupils are equal, round, and reactive to light. Comments: strabismus Neck: Vascular: No JVD. Cardiovascular: Rate and Rhythm: Normal rate. Heart sounds: Normal heart sounds. No murmur heard. Pulmonary: Effort: Pulmonary effort is normal. No respiratory distress. Breath sounds: Normal breath sounds. Abdominal: General: There is no distension. Palpations: Abdomen is soft. Tenderness: There is no abdominal tenderness. Musculoskeletal: General: Normal range of motion. Cervical back: Neck supple. Skin: General: Skin is warm and dry. Neurological: Mental Status: He is alert and oriented to person, place, and time. Psychiatric: Behavior: Behavior normal. Radiology: XR Chest 1 vw Preliminary Result EXAM: XR CHEST 1 VW COMPARISON: Chest radiograph dated 08/18/2024. HISTORY: 58 years old Male with sob FINDINGS: Left chest wall ICD leads project over the right atrium, right ventricle and coronary sinus territories. Lungs: The lung volumes are normal. Hilar vascular congestion. No focal opacities. No pleural abnormalities are detected. Heart/Mediastinum: Marked global cardiomegaly. Bones and soft tissues: No focal osseous lesions. IMPRESSION Hilar vascular congestion without overt pulmonary edema. Preliminary Report Dictated by Resident: Josesito Gonzalez Lab Results: Lab Results TROPONIN I - Abnormal Result Value Ref Range TROPONIN I 0.044 (*) <=0.034 ng/mL CBC WITH DIFF - Abnormal WBC 5.23 4.20 - 10.70 10*3/?L RBC 5.92 (*) 4.26 - 5.52 10*6/?L HGB 15.5 12.2 - 16.4 g/dL HCT 50.2 (*) 38.4 - 49.3 % MCV 84.8 81.7 - 95.6 fL MCH 26.2 26.1 - 32.7 pg MCHC 30.9 (*) 31.2 - 35.0 g/dL RDW-SD 56.8 (*) 38.5 - 51.6 fL RDW-CV 19.5 (*) 12.1 - 15.4 % PLT 172 150 - 328 10*3/?L MPV 11.0 9.8 - 13.0 fL NRBC/100 WBC 0.0 0.0 - 10.0 /100 WBCs NRBC x103<0.01 10*3/?L GRAN MAT (NEUT) % 51.0 % IMM GRAN % 0.20 % LYMPH % 37.5 % MONO % 9.4 % EOS % 1.5 % BASO % 0.4 % GRAN MAT x103(ANC) 2.67 1.99 - 6.95 10*3/uL IMM GRAN x103<0.03 0.00 - 0.06 10*3/uL LYMPH x1031.96 1.09 - 3.23 10*3/uL MONO x1030.49 0.36 - 1.02 10*3/uL EOS x1030.08 0.06 - 0.53 10*3/uL BASO x103<0.03 0.01 - 0.09 10*3/uL BASIC METABOLIC PANEL (NA, K, CL, CO2, GLUCOSE, BUN, CREATININE, CA) - Abnormal NA 142 135 - 145 mmol/L K 3.4 (*) 3.5 - 5.0 mmol/L CL 106 98 - 108 mmol/L CO2 TOTAL 28 23 - 31 mmol/L AGAP 8 2 - 16 BUN 22 7 - 23 mg/dL GLUCOSE 97 70 - 110 mg/dL CREATININE 1.47 (*) 0.60 - 1.25 mg/dL CALCIUM 9.4 8.6 - 10.6 mg/dL eGFR 55.3 mL/min/1.73m2 TROPONIN I - Abnormal TROPONIN I 0.045 (*) <=0.034 ng/mL EKG: If EKG completed, see Procedure Note. Orders and Treatments: Orders Placed This Encounter Procedures XR Chest 1 vw Troponin I Cbc with Diff Basic Metabolic Panel (NA, K, CL, CO2, GLUCOSE, BUN, CREATININE, CA) Troponin I Orders Placed This Encounter Medications butorphanol (STADOL) injection 1 mg First Provider Eval: ED Events Date/Time Event User Comments 09/18/24 143 Medical Screening Begins JOSEPH QUINONES MD -- 09/18/24 1433 First Provider Evaluation JOSEPH QUINONES MD -- ED COURSE Diagnosis/Impression as of 09/18/24 1744 SOB (shortness of breath) Weakness Pulmonary HTN Procedures: Procedures MDM: Medical Decision Making Vitals are doing better EKG is same as previous, atrial and ventricular paced Labs are abnormal but much improved from previous CXR is same as previous Called Dr Sanderson, cardiology, who reports if repeat trop is same or less should go home and there is no reason they cannot see him in clinic. He reports patient often comes in malingering. Secondary gain suspected. Discharged. Problems Addressed: Pulmonary HTN: chronic illness or injury SOB (shortness of breath): complicated acute illness or injury Weakness: chronic illness or injury Amount and/or Complexity of Data Reviewed Labs: ordered. Decision-making details documented in ED Course. Radiology: ordered. Decision-making details documented in ED Course. ECG/medicine tests: ordered and independent interpretation performed. Decision-making details documented in ED Course. Discussion of management or test interpretation with external provider(s): Called Dr Sanderson, cardiology, who reports if repeat trop is same or less should go home and there is no reason they cannot see him in clinic. Risk Prescription drug management. Parenteral controlled substances. Diagnosis or treatment significantly limited by social determinants of health. Flowsheet Documentation: Scoring Tools: No data recorded Disposition/Condition: ED Disposition ED Disposition Discharge Condition Stable Comment -- Discharge Medications: Patient's Medications START taking these medications No medications on file CONTINUE taking these medications which have NOT CHANGED ACETAMINOPHEN-CODEINE (TYLENOL-CODEINE #3) 300-30 MG TABLET Take 1 tablet by mouth 2 (two) times daily as needed for Pain (scale 4-6) or Pain (scale 7-10). Indications: chronic pain, right knee pain ALLOPURINOL 300 MG TABLET Take 1 tablet by mouth every morning. AMIODARONE 200 MG TABLET Take 1 tablet by mouth in the morning. APIXABAN 5 MG TABLET Take 1 tablet by mouth in the morning and 1 tablet in the evening. Indications: atrial fibrillation ATORVASTATIN 80 MG TABLET Take 1 tablet by mouth at bedtime. BLOOD SUGAR DIAGNOSTIC STRIP Check blood sugar 2 times a day. E11.9. Brand per insurance. BLOOD-GLUCOSE METER KIT Check sugars 2 times a day. Dx. Code E11.9 Brand per Insurance BUSPIRONE 5 MG TABLET Take 1 tablet by mouth in the morning and 1 tablet in the evening. EMPAGLIFLOZIN (JARDIANCE) 10 MG TABLET Take 1 tablet by mouth in the morning. FUROSEMIDE 40 MG TABLET Take 1.5 tablets by mouth in the morning. GABAPENTIN 100 MG CAPSULE Take 1 capsule by mouth in the morning and 1 capsule at noon and 1 capsule in the evening. LANCETS MISC Check sugars 1 times a day. Dx Code E11.9. Brand per insurance. LISINOPRIL 5 MG TABLET Take 1 tablet by mouth in the morning. METHOCARBAMOL 500 MG TABLET Take 1 tablet by mouth 3 (three) times daily as needed for Pain (scale 7-10) (Knee pain). METOPROLOL SUCCINATE XL 25 MG 24 HR TABLET Take 1/2 (one-half) tablet by mouth in the morning. OMEPRAZOLE 40 MG CAPSULE Take 1 capsule by mouth in the morning. SPIRONOLACTONE (ALDACTONE) 25 MG TABLET Take 1 tablet by mouth in the morning. START taking Modified Medications as Prescribed No medications on file STOP taking these medications No medications on file Follow-up: Electronically signed by: Joseph Quinones DO 09/18/24 1744 [place] [id number] 16:14:43 Images from the original note were not included. Patient should still have refills available at the [facility]. Patient notified. [facility] Jackie Mims [place] [id number] 09:54:40 Pt request rx refill. Please Advise. [facility]/pharmacy #[id number] - [place], [place] - [address] [facility] [phone] [address] [place] [id number] 10:37:25 TRANSITIONAL CARE MANAGEMENT ASSESSMENT 08/23/2024 Bryan Parada [id number] Bryan Parada is a 58 year old Black or male was admitted on 08/18/24 to [facility] ICU. He was discharged on 08/19/24 with discharge disposition of HR- Routine Discharge. Admitting Physician: Yared Larios Discharge Diagnosis: Principal Diagnosis: Unstable angina Linked Episodes Type: Episode: Status: Noted: Resolved: Last update: Updated by: TRANSITION OF CARE tcm Active 08/19/2024 08/23/2024 10:34 AM Flip Zavala, RN Comments: TCM Lsr-xbhw-bu-face outreach documentation: Discharge Assessment Chart Assessed: 08/23/24 TCM Outreach Completed: 08/23/24 Do you have a few minutes to speak with me about how you are doing at home?: Yes (Pt reports he is "alright".) Discharge Instructions Do you understand your at-home instructions?: Yes (No questions at this time.) Medications Have you filled your prescriptions and do you have them in your home? : N/A (No new medications prescribed at discharge.) Supplies Did you receive applicable home medical supplies/equipment?: N/A Follow Up Appointment Has a follow up appointment been scheduled?: Yes Home Health Assistance Has the home health nurse contacted you since you've been home?: N/A Survey - Recognition Do you have any other questions or concerns at this time?: No Future Appointments: Future Appointments Provider Department Dept Phone 08/26/2024 2:00 PM Kim Pate NP [facility] Cardiology, [facility] [phone] 08/26/2024 3:30 PM Brooks Barker [facility] [phone] 09/01/2024 1:50 AM [facility] 1 [facility], Tabitha [place] [phone] [facility] [facility] [id number] 11:53:37 Patient recently seen during his stay in the hospital. Will plan for follow-up in couple of weeks here in [facility]. [facility]2025-01-17 16:40:32 Problem: Falls, Risk of Goal: Absence of falls 08/19/2024 1640 by Brooke Pritchett RN Outcome: Resolved 08/19/2024 1640 by Brooke Pritchett RN Outcome: Adequate for discharge 08/19/2024 1518 by Brooke Pritchett RN Outcome: Progressing as expected Problem: Venous Thromboembolism, (actual or risk of) Goal: Absence of venous thromboembolism (Risk) 08/19/2024 1640 by Brooke Pritchett RN Outcome: Resolved 08/19/2024 1640 by Brooke Pritchett RN Outcome: Adequate for discharge 08/19/2024 1518 by Brooke Pritchett RN Outcome: Progressing as expected Problem: Discharge Planning Goal: Adequate for discharge 08/19/2024 1640 by Brooke Pritchett RN Outcome: Resolved 08/19/2024 1640 by Brooke Pritchett RN Outcome: Adequate for discharge 08/19/2024 1518 by Brooke Pritchett RN Outcome: Progressing as expected Goal: Effective communication 08/19/2024 1640 by Brooke Pritchett RN Outcome: Resolved 08/19/2024 1640 by Brooke Pritchett RN Outcome: Adequate for discharge 08/19/2024 1518 by Brooke Pritchett RN Outcome: Progressing as expected Problem: Fluid Volume - Imbalanced Goal: Absence of signs and symptoms of imbalanced fluid volume 08/19/2024 1640 by Brooke Pritchett RN Outcome: Resolved 08/19/2024 1640 by Brooke Pritchett RN Outcome: Adequate for discharge 08/19/2024 1518 by Brooke Pritchett RN Outcome: Progressing as expected Problem: Glucose Control - Initiated in Adult CC Goal: Glucose level within specified parameters 08/19/2024 1640 by Brooke Pritchett RN Outcome: Resolved 08/19/2024 1640 by Brooke Pritchett RN Outcome: Adequate for discharge 08/19/2024 1518 by Brooke Pritchett RN Outcome: Progressing as expected Problem: Infection, Risk of or Actual Goal: Absence of infection 08/19/2024 1640 by Brooke Pritchett RN Outcome: Resolved 08/19/2024 1640 by Brooke Pritchett RN Outcome: Adequate for discharge 08/19/2024 1518 by Brooke Pritchett RN Outcome: Progressing as expected Problem: Skin integrity Impaired (Risk or Actual) Goal: Wound healing 08/19/2024 1640 by Brooke Pritchett RN Outcome: Resolved 08/19/2024 1640 by Brooke Pritchett RN Outcome: Adequate for discharge 08/19/2024 1518 by Brooke Pritchett RN Outcome: Progressing as expected Goal: Prevention of new skin breakdown 08/19/2024 1640 by Brooke Pritchett RN Outcome: Resolved 08/19/2024 1640 by Brooke Pritchett RN Outcome: Adequate for discharge 08/19/2024 1518 by Brooke Pritchett RN Outcome: Progressing as expected Problem: Tissue Perfusion - Altered, Risk of Goal: Hemodynamically stable 08/19/2024 1640 by Brooke Pritchett RN Outcome: Resolved 08/19/2024 1640 by Brooke Pritchett RN Outcome: Adequate for discharge 08/19/2024 1518 by Brooke Pritchett RN Outcome: Progressing as expected Problem: Cardiac Output - Decreased Goal: Cardiac output within specified parameters 08/19/2024 1640 by Brooke Pritchett RN Outcome: Resolved 08/19/2024 1640 by Brooke Pritchett RN Outcome: Adequate for discharge 08/19/2024 1518 by Brooke Pritchett RN Outcome: Progressing as expected Goal: Absence of signs and symptoms of decreased cardiac output 08/19/2024 1640 by Brooke Pritchett RN Outcome: Resolved 08/19/2024 1640 by Brooke Pritchett RN Outcome: Adequate for discharge 08/19/2024 1518 by Brooke Pritchett RN Outcome: Progressing as expected Problem: Discharge Planning Goal: Adequate for discharge 08/19/2024 1640 by Brooke Pritchett RN Outcome: Resolved 08/19/2024 1640 by Brooke Pritchett RN Outcome: Adequate for discharge 08/19/2024 1518 by Brooke Pritchett RN Outcome: Progressing as expected Goal: Adequate to move to next level of care 08/19/2024 1640 by Brooke Pritchett RN Outcome: Resolved 08/19/2024 1640 by Brooke Pritchett RN Outcome: Adequate for discharge 08/19/2024 1518 by Brooke Pritchett RN Outcome: Progressing as expected Goal: Knowledge of medication management 08/19/2024 1640 by Brooke Pritchett RN Outcome: Resolved 08/19/2024 1640 by Brooke Pritchett RN Outcome: Adequate for discharge 08/19/2024 1518 by Brooke Pritchett RN Outcome: Progressing as expected Problem: Pain Goal: Control of pain at or below patient's documented comfort goal 08/19/2024 1640 by Brooke Pritchett RN Outcome: Resolved 08/19/2024 1640 by Brooke Pritchett RN Outcome: Adequate for discharge 08/19/2024 1518 by Brooke Pritchett RN Outcome: Progressing as expected Goal: Reduction in pain sensation 08/19/2024 1640 by Brooke Pritchett RN Outcome: Resolved 08/19/2024 1640 by Brooke Pritchett RN Outcome: Adequate for discharge 08/19/2024 1518 by Brooke Pritchett RN Outcome: Progressing as expected Problem: Tissue Perfusion, Cardiopulmonary - Altered Goal: Circulatory function within specified parameters 08/19/2024 1640 by Brooke Pritchett RN Outcome: Resolved 08/19/2024 1640 by Brooke Pritchett RN Outcome: Adequate for discharge 08/19/2024 1518 by Brooke Pritchett RN Outcome: Progressing as expected LE HELPER Brooke Pritchett [id number] 16:40:21 Problem: Falls, Risk of Goal: Absence of falls 08/19/2024 1640 by Brooke Pritchett RN Outcome: Adequate for discharge 08/19/2024 1518 by Brooke Pritchett RN Outcome: Progressing as expected Problem: Venous Thromboembolism, (actual or risk of) Goal: Absence of venous thromboembolism (Risk) 08/19/2024 1640 by Brooke Pritchett RN Outcome: Adequate for discharge 08/19/2024 1518 by Brooke Pritchett RN Outcome: Progressing as expected Problem: Discharge Planning Goal: Adequate for discharge 08/19/2024 1640 by Brooke Pritchett RN Outcome: Adequate for discharge 08/19/2024 1518 by Brooke Pritchett RN Outcome: Progressing as expected Goal: Effective communication 08/19/2024 1640 by Brooke Pritchett RN Outcome: Adequate for discharge 08/19/2024 1518 by Brooke Pritchett RN Outcome: Progressing as expected Problem: Fluid Volume - Imbalanced Goal: Absence of signs and symptoms of imbalanced fluid volume 08/19/2024 1640 by Brooke Pritchett RN Outcome: Adequate for discharge 08/19/2024 1518 by Brooke Pritchett RN Outcome: Progressing as expected Problem: Glucose Control - Initiated in Adult CC Goal: Glucose level within specified parameters 08/19/2024 1640 by Brooke Pritchett RN Outcome: Adequate for discharge 08/19/2024 1518 by Brooke Pritchett RN Outcome: Progressing as expected Problem: Infection, Risk of or Actual Goal: Absence of infection 08/19/2024 1640 by Brooke Pritchett RN Outcome: Adequate for discharge 08/19/2024 1518 by Brooke Pritchett RN Outcome: Progressing as expected Problem: Skin integrity Impaired (Risk or Actual) Goal: Wound healing 08/19/2024 1640 by Brooke Pritchett RN Outcome: Adequate for discharge 08/19/2024 1518 by Brooke Pritchett RN Outcome: Progressing as expected Goal: Prevention of new skin breakdown 08/19/2024 1640 by Brooke Pritchett RN Outcome: Adequate for discharge 08/19/2024 1518 by Brooke Pritchett RN Outcome: Progressing as expected Problem: Tissue Perfusion - Altered, Risk of Goal: Hemodynamically stable 08/19/2024 1640 by Brooke Pritchett RN Outcome: Adequate for discharge 08/19/2024 1518 by Brooke Pritchett RN Outcome: Progressing as expected Problem: Cardiac Output - Decreased Goal: Cardiac output within specified parameters 08/19/2024 1640 by Brooke Pritchett RN Outcome: Adequate for discharge 08/19/2024 1518 by Brooke Pritchett RN Outcome: Progressing as expected Goal: Absence of signs and symptoms of decreased cardiac output 08/19/2024 1640 by Brooke Pritchett RN Outcome: Adequate for discharge 08/19/2024 1518 by Brooke Pritchett RN Outcome: Progressing as expected Problem: Discharge Planning Goal: Adequate for discharge 08/19/2024 1640 by Brooke Pritchett RN Outcome: Adequate for discharge 08/19/2024 1518 by Brooke Pritchett RN Outcome: Progressing as expected Goal: Adequate to move to next level of care 08/19/2024 1640 by Brooke Pritchett RN Outcome: Adequate for discharge 08/19/2024 1518 by Brooke Pritchett RN Outcome: Progressing as expected Goal: Knowledge of medication management 08/19/2024 1640 by Brooke Pritchett RN Outcome: Adequate for discharge 08/19/2024 1518 by Brooke Pritchett RN Outcome: Progressing as expected Problem: Pain Goal: Control of pain at or below patient's documented comfort goal 08/19/2024 1640 by Brooke Pritchett RN Outcome: Adequate for discharge 08/19/2024 1518 by Brooke Pritchett RN Outcome: Progressing as expected Goal: Reduction in pain sensation 08/19/2024 1640 by Brooke Pritchett RN Outcome: Adequate for discharge 08/19/2024 1518 by Brooke Pritchett RN Outcome: Progressing as expected Problem: Tissue Perfusion, Cardiopulmonary - Altered Goal: Circulatory function within specified parameters 08/19/2024 1640 by Brooke Pritchett RN Outcome: Adequate for discharge 08/19/2024 1518 by Brooke Pritchett RN Outcome: Progressing as expected [facility]2025-01-17 15:18:20 Problem: Falls, Risk of Goal: Absence of falls Outcome: Progressing as expected Problem: Venous Thromboembolism, (actual or risk of) Goal: Absence of venous thromboembolism (Risk) Outcome: Progressing as expected Problem: Discharge Planning Goal: Adequate for discharge Outcome: Progressing as expected Goal: Effective communication Outcome: Progressing as expected Problem: Fluid Volume - Imbalanced Goal: Absence of signs and symptoms of imbalanced fluid volume Outcome: Progressing as expected Problem: Glucose Control - Initiated in Adult CC Goal: Glucose level within specified parameters Outcome: Progressing as expected Problem: Infection, Risk of or Actual Goal: Absence of infection Outcome: Progressing as expected Problem: Skin integrity Impaired (Risk or Actual) Goal: Wound healing Outcome: Progressing as expected Goal: Prevention of new skin breakdown Outcome: Progressing as expected Problem: Tissue Perfusion - Altered, Risk of Goal: Hemodynamically stable Outcome: Progressing as expected Problem: Cardiac Output - Decreased Goal: Cardiac output within specified parameters Outcome: Progressing as expected Goal: Absence of signs and symptoms of decreased cardiac output Outcome: Progressing as expected Problem: Discharge Planning Goal: Adequate for discharge Outcome: Progressing as expected Goal: Adequate to move to next level of care Outcome: Progressing as expected Goal: Knowledge of medication management Outcome: Progressing as expected Problem: Pain Goal: Control of pain at or below patient's documented comfort goal Outcome: Progressing as expected Goal: Reduction in pain sensation Outcome: Progressing as expected Problem: Tissue Perfusion, Cardiopulmonary - Altered Goal: Circulatory function within specified parameters Outcome: Progressing as expected [facility]2025-01-17 01:49:13 Problem: Falls, Risk of Goal: Absence of falls Outcome: Progressing as expected Problem: Venous Thromboembolism, (actual or risk of) Goal: Absence of venous thromboembolism (Risk) Outcome: Progressing as expected Problem: Discharge Planning Goal: Adequate for discharge Outcome: Progressing as expected Goal: Effective communication Outcome: Progressing as expected Problem: Fluid Volume - Imbalanced Goal: Absence of signs and symptoms of imbalanced fluid volume Outcome: Progressing as expected Problem: Glucose Control - Initiated in Adult CC Goal: Glucose level within specified parameters Outcome: Progressing as expected Problem: Infection, Risk of or Actual Goal: Absence of infection Outcome: Progressing as expected Problem: Skin integrity Impaired (Risk or Actual) Goal: Wound healing Outcome: Progressing as expected Goal: Prevention of new skin breakdown Outcome: Progressing as expected Problem: Tissue Perfusion - Altered, Risk of Goal: Hemodynamically stable Outcome: Progressing as expected Problem: Cardiac Output - Decreased Goal: Cardiac output within specified parameters Outcome: Progressing as expected Goal: Absence of signs and symptoms of decreased cardiac output Outcome: Progressing as expected Problem: Discharge Planning Goal: Adequate for discharge Outcome: Progressing as expected Goal: Adequate to move to next level of care Outcome: Progressing as expected Goal: Knowledge of medication management Outcome: Progressing as expected Problem: Pain Goal: Control of pain at or below patient's documented comfort goal Outcome: Progressing as expected Goal: Reduction in pain sensation Outcome: Progressing as expected Problem: Tissue Perfusion, Cardiopulmonary - Altered Goal: Circulatory function within specified parameters Outcome: Progressing as expected LE HELPER Antonieta Stoddard [id number] 00:28:22 Patient admitted to 2113-08 for diagnosis of Chest pain,NSTEMI, Acute on chronic congestive heart failure Patient agrees to admission, discussed plan of care with patient and family. Patient is awake, alert, oriented, resp reg unlabored, color appropriate for race, PIV intact No adverse reaction to medications administered while in ED Belongings with patient to unit RAFAEL Fried [facility] [id number] 23:01:39 Nurse Report Report given to Zafar BAKER. Chief complaint, assessment findings, infusion verify and orders reviewed. LE HELPER Terri Samuel [id number] 19:03:11 Pt brought in by [facility] c/o chest pain that started about 1700 today. Pt reports pain dull & 10/10. Also reports that his hands began shaking earlier in day. Pt has extensive cardiovascular hx. RAFAEL Reynaga [facility] ProvidenceRfwbqk6283-93-81 19:01:00 AdmissionCare Guideline: Myocardial Infarction, WITH Heart Failure, Inpatient Based on the indications selected for the patient, the bed status of Inpatient was determined to be MET The following indications were selected as present at the time of evaluation of the patient: - Clinical Indications for Admission to Inpatient Care - Admission is indicated for 1 or more of the following: - Acute myocardial infarction (MO) (not in context of cardiac procedure within last 48 hours), as indicated by ALL of the following: - Elevated cardiac troponin level, as indicated by 1 or more of the following: - Initial troponin elevated with subsequent increase or decrease in level of 20% or more (ie, indicative of acute myocardial injury) - Myocardial injury due to acute ischemia, as indicated by 1 or more of the following: - Symptoms consistent with myocardial ischemia (eg, chest pain, dyspnea) AdmissionCare documentation entered by: Jesse Soliz [facility], 28th edition, Copyright ? 2023 [facility] All Rights Reserved. [id number]:28-06:00 [facility]2025-01-16 15:38:04 90 day supply sent as requested [facility]2025-01-15 15:25:08 Call placed to Mr. Parada to schedule sooner appt, however he lives in [place] and has to find a ride so would rather keep it on 08/26/24. Advised to contact HF RN if he has any questions, concerns or symptom to contact HF RN back. Verbalized understanding. No further questions or concerns at this time Can patient be seen in [place] with Dr. Ladd for follow up due to possible transportation issues or should he only be scheduled with HF [facility] Lizett Duffy [facility] HospitalYmxcms9124-58-16 08:47:30 Attempted to call mr. Parada and offer HFU for 08/18/24. No answer at this time, VM left to return call at his earliest convineince If patient calls back, please schedule in HF clinic with ROHIT billingsley 08/18/24 if patient agreeable RAFAEL Duffy [facility] HospitalTwhrtq1631-03-29 16:42:36 TRANSITIONAL CARE MANAGEMENT ASSESSMENT 08/16/2024 Bryan Parada [id number] Bryan Parada is a 58 year old Black or male was admitted on 08/09/[address] He was discharged on 08/15/24 with discharge disposition of HR- Routine Discharge. Admitting Physician: Criss Leyva Discharge Diagnosis: Paroxysmal atrial fibrillation with RVR s/p ablation 08/12/24 Linked Episodes Type: Episode: Status: Noted: Resolved: Last update: Updated by: TRANSITION OF CARE TCM Active 08/15/2024 08/16/2024 4:42 PM Ayan Dodd RN Comments:08/15/2024 TCM Byn-vxed-tu-face outreach documentation: Discharge Assessment Chart Assessed: 08/16/24 TCM Outreach Completed: 08/16/24 Do you have a few minutes to speak with me about how you are doing at home?: Yes Discharge Instructions Do you understand your at-home instructions?: Yes Medications Have you filled your prescriptions and do you have them in your home? : No Medication Interventions?: (per pt, "i need a ride to go and pick them up") Do you know how to take your medications?: Yes Supplies Did you receive applicable home medical [...] Appointments: Future Appointments Provider Department Dept Phone 08/26/2024 2:00 PM Kim Pate NP [facility] Cardiology, [facility] [phone] 09/01/2024 1:50 AM [facility] [address] [place] [address] [facility] [phone] CM unable to schedule Mr. Parada for an earlier appt. No sooner appts available. Per d/c order "schedule with HF in 3-5 days." He was scheduled for 08/26/2024 by referral team. HF team notified.Account Info Account # Financial Class Enc/CSN # BRYAN PARADA [[id number]] Managed Medicare [122] [id number] Order Questions Question Answer Comment Patient's Preferred Location: [place] When (Patients with risk for unplanned readmission score over 16 or those noted as Hospital Dependent should follow up within 7 days with PCP or primary DX specialist): 3-5 Days Note: Follow-Up Date or Schedule Discharge Disposition: HOME, (AHR) Risk of Unplanned Readmission:( Score greater than 16 indicates high risk) 27.45 Other Scheduling Considerations: Subspecialty Heart Failure RAFAEL Dodd [id number] 13:41:55 Care Transition CM made f/u call to pt post-discharge. No response and call went to voicemail. CM left a discreet message with purpose of call and CM's call back information. [facility]2025-01-13 15:17:07 Problem: Falls, Risk of Goal: Absence of falls 08/15/20241516 by Natan Huynh RN Outcome: Adequate for discharge 08/15/2024 1053 by Natan Huynh RN Outcome: Progressing as expected Problem: Pain Goal: Control of pain at or below patient's documented comfort goal 08/15/2024 1517 by Natan Huynh RN Outcome: Adequate for discharge 08/15/2024 1053 by Natan Huynh RN Outcome: Progressing as expected Goal: Reduction in pain sensation 08/15/2024 1517 by Natan Huynh RN Outcome: Adequate for discharge 08/15/2024 1053 by Natan Huynh RN Outcome: Progressing as expected Problem: Venous Thromboembolism, (actual or risk of) Goal: Absence of venous thromboembolism (Risk) 08/15/2024 1517 by Natan Huynh RN Outcome: Adequate for discharge 08/15/2024 1053 by Natan Huynh RN Outcome: Progressing as expected Problem: Infection Risk Goal: Absence of infection 08/15/2024 1517 by Natan Huynh RN Outcome: Adequate for discharge 08/15/2024 1053 by Natan Huynh RN Outcome: Progressing as expected Problem: Skin integrity Impaired (Risk or Actual) Goal: Wound healing 08/15/2024 1517 by Natan Huynh RN Outcome: Adequate for discharge 08/15/2024 1053 by Natan Huynh RN Outcome: Progressing as expected Goal: Prevention of new skin breakdown 08/15/2024 1517 by Natan Huynh RN Outcome: Adequate for discharge 08/15/2024 1053 by Natan Huynh RN Outcome: Progressing as expected Problem: Bleeding, Risk of Goal: Absence of impaired coagulation signs and symptoms 08/15/2024 1517 by Natan Huynh RN Outcome: Adequate for discharge 08/15/2024 1053 by Natan Huynh RN Outcome: Progressing as expected Goal: Absence of active bleeding 08/15/2024 1517 by Natan Huynh RN Outcome: Adequate for discharge 08/15/2024 1053 by Natan Huynh RN Outcome: Progressing as expected Problem: Respiratory Function - Impaired Goal: Able to cough effectively 08/15/2024 1517 by Natan Huynh RN Outcome: Adequate for discharge 08/15/2024 1053 by Natan Huynh RN Outcome: Progressing as expected Goal: Adequate oxygenation 08/15/2024 1517 by Natna Huynh RN Outcome: Adequate for discharge 08/15/2024 1053 by Natan Huynh RN Outcome: Progressing as expected Goal: Adequate work of breathing 08/15/2024 1517 by Natan Huynh RN Outcome: Adequate for discharge 08/15/2024 1053 by Natan Huynh RN Outcome: Progressing as expected Problem: Cardiac Output - Decreased Goal: Absence of signs and symptoms of decreased cardiac output 08/15/2024 1517 by Natan Huynh RN Outcome: Adequate for discharge 08/15/2024 1053 by Natan Huynh RN Outcome: Progressing as expected Problem: Discharge Planning Goal: Adequate for discharge 08/15/2024 1517 by Natan Huynh RN Outcome: Adequate for discharge 08/15/2024 1053 by Natan Huynh RN Outcome: Progressing as expected [facility]2025-01-13 10:53:41 Problem: Falls, Risk of Goal: Absence of falls Outcome: Progressing as expected Problem: Pain Goal: Control of pain at or below patient's documented comfort goal Outcome: Progressing as expected Goal: Reduction in pain sensation Outcome: Progressing as expected Problem: Venous Thromboembolism, (actual or risk of) Goal: Absence of venous thromboembolism (Risk) Outcome: Progressing as expected Problem: Infection Risk Goal: Absence of infection Outcome: Progressing as expected Problem: Skin integrity Impaired (Risk or Actual) Goal: Wound healing Outcome: Progressing as expected Goal: Prevention of new skin breakdown Outcome: Progressing as expected Problem: Bleeding, Risk of Goal: Absence of impaired coagulation signs and symptoms Outcome: Progressing as expected Goal: Absence of active bleeding Outcome: Progressing as expected Problem: Respiratory Function - Impaired Goal: Able to cough effectively Outcome: Progressing as expected Goal: Adequate oxygenation Outcome: Progressing as expected Goal: Adequate work of breathing Outcome: Progressing as expected Problem: Cardiac Output - Decreased Goal: Absence of signs and symptoms of decreased cardiac output Outcome: Progressing as expected Problem: Discharge Planning Goal: Adequate for discharge Outcome: Progressing as expected [place] [id number] 06:18:17 Problem: Falls, Risk of Goal: Absence of falls Outcome: Progressing as expected Problem: Pain Goal: Control of pain at or below patient's documented comfort goal Outcome: Progressing as expected Goal: Reduction in pain sensation Outcome: Progressing as expected Problem: Venous Thromboembolism, (actual or risk of) Goal: Absence of venous thromboembolism (Risk) Outcome: Progressing as expected Problem: Infection Risk Goal: Absence of infection Outcome: Progressing as expected Problem: Skin integrity Impaired (Risk or Actual) Goal: Wound healing Outcome: Progressing as expected Goal: Prevention of new skin breakdown Outcome: Progressing as expected Problem: Bleeding, Risk of Goal: Absence of impaired coagulation signs and symptoms Outcome: Progressing as expected Goal: Absence of active bleeding Outcome: Progressing as expected Problem: Respiratory Function - Impaired Goal: Able to cough effectively Outcome: Progressing as expected Goal: Adequate oxygenation Outcome: Progressing as expected Goal: Adequate work of breathing Outcome: Progressing as expected Problem: Cardiac Output - Decreased Goal: Absence of signs and symptoms of decreased cardiac output Outcome: Progressing as expected Problem: Discharge Planning Goal: Adequate for discharge Outcome: Progressing as expected [id number]08:28 Pt refused CPAP [id number] 12:37:03 Summary: Orthostatic VS 08/14/24 1220 08/14/24 1224 08/14/24 1229 Vitals Pulse (S) 71 (S) 65 (S) 85 Pulse source (S) Blood Pressure Machine (S) Blood Pressure Machine (S) Blood Pressure Machine BP (S) 113/82 (S) 119/72 (S) 111/66 BP Method (S) Automatic (S) Automatic (S) Automatic BP Location (S) Left arm (S) Left arm (S) Left arm Patient Position (S) Supine (S) Sitting (S) Standing Shock Index 0.63 0.55 0.77 RAFAEL [facility]ynh [id number] 01:59:28 Problem: Falls, Risk of Goal: Absence of falls Outcome: Progressing as expected Problem: Pain Goal: Control of pain at or below patient's documented comfort goal Outcome: Progressing as expected Goal: Reduction in pain sensation Outcome: Progressing as expected Problem: Venous Thromboembolism, (actual or risk of) Goal: Absence of venous thromboembolism (Risk) Outcome: Progressing as expected Problem: Infection Risk Goal: Absence of infection Outcome: Progressing as expected Problem: Skin integrity Impaired (Risk or Actual) Goal: Wound healing Outcome: Progressing as expected Goal: Prevention of new skin breakdown Outcome: Progressing as expected Problem: Bleeding, Risk of Goal: Absence of impaired coagulation signs and symptoms Outcome: Progressing as expected Goal: Absence of active bleeding Outcome: Progressing as expected Problem: Respiratory Function - Impaired Goal: Able to cough effectively Outcome: Progressing as expected Goal: Adequate oxygenation Outcome: Progressing as expected Goal: Adequate work of breathing Outcome: Progressing as expected Problem: Cardiac Output - Decreased Goal: Absence of signs and symptoms of decreased cardiac output Outcome: Progressing as expected Problem: Discharge Planning Goal: Adequate for discharge Outcome: Progressing as expected [facility]2025-01-11 05:42:36 Problem: Falls, Risk of Goal: Absence of falls Outcome: Progressing as expected Problem: Pain Goal: Control of pain at or below patient's documented comfort goal Outcome: Progressing as expected Goal: Reduction in pain sensation Outcome: Progressing as expected Problem: Venous Thromboembolism, (actual or risk of) Goal: Absence of venous thromboembolism (Risk) Outcome: Progressing as expected Problem: Infection Risk Goal: Absence of infection Outcome: Progressing as expected Problem: Skin integrity Impaired (Risk or Actual) Goal: Wound healing Outcome: Progressing as expected Goal: Prevention of new skin breakdown Outcome: Progressing as expected Problem: Bleeding, Risk of Goal: Absence of impaired coagulation signs and symptoms Outcome: Progressing as expected Goal: Absence of active bleeding Outcome: Progressing as expected Problem: Respiratory Function - Impaired Goal: Able to cough effectively Outcome: Progressing as expected Goal: Adequate oxygenation Outcome: Progressing as expected Goal: Adequate work of breathing Outcome: Progressing as expected Problem: Cardiac Output - Decreased Goal: Absence of signs and symptoms of decreased cardiac output Outcome: Progressing as expected [facility]2025-01-10 17:12:34 Problem: Falls, Risk of Goal: Absence of falls Outcome: Progressing as expected Problem: Pain Goal: Control of pain at or below patient's documented comfort goal Outcome: Progressing as expected Goal: Reduction in pain sensation Outcome: Progressing as expected Problem: Venous Thromboembolism, (actual or risk of) Goal: Absence of venous thromboembolism (Risk) Outcome: Progressing as expected Problem: Infection Risk Goal: Absence of infection Outcome: Progressing as expected Problem: Skin integrity Impaired (Risk or Actual) Goal: Wound healing Outcome: Progressing as expected Goal: Prevention of new skin breakdown Outcome: Progressing as expected Problem: Bleeding, Risk of Goal: Absence of impaired coagulation signs and symptoms Outcome: Progressing as expected Goal: Absence of active bleeding Outcome: Progressing as expected Problem: Respiratory Function - Impaired Goal: Able to cough effectively Outcome: Progressing as expected Goal: Adequate oxygenation Outcome: Progressing as expected Goal: Adequate work of breathing Outcome: Progressing as expected Problem: Cardiac Output - Decreased Goal: Absence of signs and symptoms of decreased cardiac output Outcome: Progressing as expected [facility] Edd Chaves [id number] 15:42:41 Elapsed Sedation Time: 20 min. [facility]2025-01-10 03:55:21 Problem: Falls, Risk of Goal: Absence of falls Outcome: Progressing as expected Problem: Pain Goal: Control of pain at or below patient's documented comfort goal Outcome: Progressing as expected Goal: Reduction in pain sensation Outcome: Progressing as expected Problem: Venous Thromboembolism, (actual or risk of) Goal: Absence of venous thromboembolism (Risk) Outcome: Progressing as expected Problem: Infection Risk Goal: Absence of infection Outcome: Progressing as expected Problem: Skin integrity Impaired (Risk or Actual) Goal: Wound healing Outcome: Progressing as expected Goal: Prevention of new skin breakdown Outcome: Progressing as expected Problem: Bleeding, Risk of Goal: Absence of impaired coagulation signs and symptoms Outcome: Progressing as expected Goal: Absence of active bleeding Outcome: Progressing as expected Problem: Respiratory Function - Impaired Goal: Able to cough effectively Outcome: Progressing as expected Goal: Adequate oxygenation Outcome: Progressing as expected Goal: Adequate work of breathing Outcome: Progressing as expected Problem: Cardiac Output - Decreased Goal: Absence of signs and symptoms of decreased cardiac output Outcome: Progressing as expected [place] [id number] 15:54:23 Problem: Falls, Risk of Goal: Absence of falls Outcome: Not progressing as expected Problem: Pain Goal: Control of pain at or below patient's documented comfort goal Outcome: Not progressing as expected Goal: Reduction in pain sensation Outcome: Not progressing as expected Problem: Venous Thromboembolism, (actual or risk of) Goal: Absence of venous thromboembolism (Risk) Outcome: Not progressing as expected Problem: Infection Risk Goal: Absence of infection Outcome: Not progressing as expected Problem: Skin integrity Impaired (Risk or Actual) Goal: Wound healing Outcome: Not progressing as expected Goal: Prevention of new skin breakdown Outcome: Not progressing as expected Problem: Bleeding, Risk of Goal: Absence of impaired coagulation signs and symptoms Outcome: Not progressing as expected Goal: Absence of active bleeding Outcome: Not progressing as expected Problem: Respiratory Function - Impaired Goal: Able to cough effectively Outcome: Not progressing as expected Goal: Adequate oxygenation Outcome: Not progressing as expected Goal: Adequate work of breathing Outcome: Not progressing as expected Problem: Cardiac Output - Decreased Goal: Absence of signs and symptoms of decreased cardiac output Outcome: Not progressing as expected RAFAEL Aly [facility] [place] - [id number] 04:02:05 Problem: Falls, Risk of Goal: Absence of falls Outcome: Progressing as expected Problem: Pain Goal: Control of pain at or below patient's documented comfort goal Outcome: Progressing as expected Goal: Reduction in pain sensation Outcome: Progressing as expected Problem: Venous Thromboembolism, (actual or risk of) Goal: Absence of venous thromboembolism (Risk) Outcome: Progressing as expected Problem: Infection Risk Goal: Absence of infection Outcome: Progressing as expected Problem: Skin integrity Impaired (Risk or Actual) Goal: Wound healing Outcome: Progressing as expected Goal: Prevention of new skin breakdown Outcome: Progressing as expected Problem: Bleeding, Risk of Goal: Absence of impaired coagulation signs and symptoms Outcome: Progressing as expected Goal: Absence of active bleeding Outcome: Progressing as expected Problem: Respiratory Function - Impaired Goal: Able to cough effectively Outcome: Progressing as expected Goal: Adequate oxygenation Outcome: Progressing as expected Goal: Adequate work of breathing Outcome: Progressing as expected Problem: Cardiac Output - Decreased Goal: Absence of signs and symptoms of decreased cardiac output Outcome: Progressing as expected RAFAEL Riley [facility] - [id number] 08:00:00 Problem: Pain Goal: Control of pain at or below patient's documented comfort goal Outcome: Progressing as expected Goal: Reduction in pain sensation Outcome: Progressing as expected Problem: Falls, Risk of Goal: Absence of falls Outcome: Progressing as expected Problem: Venous Thromboembolism, (actual or risk of) Goal: Absence of venous thromboembolism (Risk) Outcome: Progressing as expected Problem: Infection Risk Goal: Absence of infection Outcome: Progressing as expected Problem: Skin integrity Impaired (Risk or Actual) Goal: Wound healing Outcome: Progressing as expected Goal: Prevention of new skin breakdown Outcome: Progressing as expected Problem: Bleeding, Risk of Goal: Absence of impaired coagulation signs and symptoms Outcome: Progressing as expected Goal: Absence of active bleeding Outcome: Progressing as expected Problem: Respiratory Function - Impaired Goal: Able to cough effectively Outcome: Progressing as expected Goal: Adequate oxygenation Outcome: Progressing as expected Goal: Adequate work of breathing Outcome: Progressing as expected RAFAEL Gamble [facility] - [id number] 03:16:03 Problem: Falls, Risk of Goal: Absence of falls Outcome: Progressing as expected Problem: Pain Goal: Control of pain at or below patient's documented comfort goal Outcome: Progressing as expected Goal: Reduction in pain sensation Outcome: Progressing as expected Problem: Venous Thromboembolism, (actual or risk of) Goal: Absence of venous thromboembolism (Risk) Outcome: Progressing as expected Problem: Infection Risk Goal: Absence of infection Outcome: Progressing as expected Problem: Skin integrity Impaired (Risk or Actual) Goal: Wound healing Outcome: Progressing as expected Goal: Prevention of new skin breakdown Outcome: Progressing as expected Problem: Bleeding, Risk of Goal: Absence of impaired coagulation signs and symptoms Outcome: Progressing as expected Goal: Absence of active bleeding Outcome: Progressing as expected Problem: Respiratory Function - Impaired Goal: Able to cough effectively Outcome: Progressing as expected Goal: Adequate oxygenation Outcome: Progressing as expected Goal: Adequate work of breathing Outcome: Progressing as expected Problem: Cardiac Output - Decreased Goal: Absence of signs and symptoms of decreased cardiac output Outcome: Progressing as expected [facility] Alex Bejarano [id number] 19:14:31 Problem: Falls, Risk of Goal: Absence of falls Outcome: Progressing as expected Problem: Pain Goal: Control of pain at or below patient's documented comfort goal Outcome: Progressing as expected Goal: Reduction in pain sensation Outcome: Progressing as expected Problem: Venous Thromboembolism, (actual or risk of) Goal: Absence of venous thromboembolism (Risk) Outcome: Progressing as expected Problem: Infection Risk Goal: Absence of infection Outcome: Progressing as expected Problem: Skin integrity Impaired (Risk or Actual) Goal: Wound healing Outcome: Progressing as expected Goal: Prevention of new skin breakdown Outcome: Progressing as expected Problem: Bleeding, Risk of Goal: Absence of impaired coagulation signs and symptoms Outcome: Progressing as expected Goal: Absence of active bleeding Outcome: Progressing as expected Problem: Respiratory Function - Impaired Goal: Able to cough effectively Outcome: Progressing as expected Goal: Adequate oxygenation Outcome: Progressing as expected Goal: Adequate work of breathing Outcome: Progressing as expected Problem: Cardiac Output - Decreased Goal: Absence of signs and symptoms of decreased cardiac output Outcome: Progressing as expected [place] [id number] 17:42:55 Report given to ICU [facility] Elham Martinez [id number] 13:05:54 Received report from YARELIS Varela [place] [id number] 11:41:25 Cough, chest pain since this morning. EMS gave 325ASA, NTGx2. LE HELPER Alena Barton [place] [id number] 11:27:00 EMERGENCY DEPARTMENT ENCOUNTER [facility] Patient Name: Bryan Parada Date of : 1965 58 year old Exam Room:TR9/9 Primary Care Physician: Brooks Barker [facility] Patient Escorted by: Self [9] Mode of Arrival: EMS - [facility] ([place]) [43] EMS Treatment Prior to ED Arrival: ED Events Date/Time Event User Comments 08/09/24 1145 Medical Screening Begins MICHELLE MIRANDA MD -- 08/09/24 1145 First Provider Evaluation MICHELLE MIRANDA MD -- Chief Complaint Chief Complaint Patient presents with Cough ED Triage Notes Alena Barton RN 08/09/2024 11:41 Cough, chest pain since this morning. EMS gave 325ASA, NTGx2. HPI History provided by: Patient Palpitations Palpitations quality: Fast Onset quality: With exertion Duration: 1 day Timing: Constant Chronicity: New Relieved by: Nothing Worsened by: Nothing Associated symptoms: chest pain, cough and shortness of breath Associated symptoms: no dizziness, no nausea and no vomiting Risk factors: heart disease Past Medical History / Immunizations Past Medical [...] Tetanus received in last 5 years: Unknown Childhood immunizations: Up-to-date Past Surgical History Past Surgical History: Procedure Laterality Date COLONOSCOPY N/A 02/19/2017 Surgeon: Fran Canchola MD; Location: [facility] OR Location ESOPHAGOGASTRODUODENOSCOPY N/A 07/20/2019 Surgeon: Maddi Ballesteros MD; Location: [facility] OR Location ESOPHAGOGASTRODUODENOSCOPY N/A 04/03/2021 Surgeon: Fran Trinh MD; Location: [facility] ([facility]) OR Location JOINT SURGERY Right 11/2016 Right knee PACEMAKERS INSERTION Allergies Allergies Allergen Reactions Imdur [Isosorbide Mononitrate] Other - See comments Severe hypotension, likely from severe LVH per Dr. Sanderson. Social History Tobacco Use Never smoked or used smokeless tobacco. Passive Exposure: Past Vaping Use Never used Alcohol Use Not Currently. Comments: 1 cup of whiskey but last dirnk in December Drug Use Never. Sexual Activity Sexually active; Partners: Male, Female; Control/Protection: Condom. Review of Systems Review of Systems Constitutional: Negative. Negative for chills, fatigue, fever and unexpected weight change. HENT: Negative. Eyes: Negative. Negative for discharge and itching. Respiratory: Positive for cough and shortness of breath. Negative for chest tightness and wheezing. Cardiovascular: Positive for chest pain and palpitations. Gastrointestinal: Negative. Negative for abdominal distention, abdominal pain, nausea and vomiting. Genitourinary: Negative. Negative for dysuria, urgency, frequency and flank pain. Musculoskeletal: Negative. Skin: Negative. Negative for color change, pallor and wound. Neurological: Negative. Negative for dizziness, syncope, light-headedness and headaches. Psychiatric/Behavioral: Negative. Negative for agitation and behavioral problems. Endocrine: Endocrine negative Physical Exam ED Triage Vitals [08/09/24 1141] Weight 131.5 kg (290 lb) Actual or estimated Estimated by patient/family report Height 1.88 m (6' 2") BP 100/78 Pulse 104 Resp 18 Temp 36.5 ?C (97.7 ?F) Temp source Oral SpO2 98 % Measured on Room air Physical Exam Vitals reviewed. Constitutional: Appearance: He is well-developed. He is obese. HENT: Head: Normocephalic and atraumatic. Nose: Nose normal. Eyes: Conjunctiva/sclera: Conjunctivae normal. Neck: Trachea: No tracheal deviation. Cardiovascular: Rate and Rhythm: Regular rhythm. Tachycardia present. Heart sounds: Normal heart sounds. No murmur heard. No friction rub. Pulmonary: Effort: Pulmonary effort is normal. No respiratory distress. Breath sounds: Normal breath sounds. No stridor. No wheezing or rales. Abdominal: General: Bowel sounds are normal. There is no distension. Palpations: Abdomen is soft. Tenderness: There is no abdominal tenderness. There is no guarding or rebound. Musculoskeletal: General: Normal range of motion. Cervical back: Normal range of motion and neck supple. Skin: General: Skin is warm and dry. Neurological: Mental Status: He is alert and oriented to person, place, and time. Cranial Nerves: No cranial nerve deficit. Sensory: No sensory deficit. Psychiatric: Behavior: Behavior normal. Labs Lab Results CBC WITH DIFF - Abnormal Result Value Ref Range WBC 4.69 4.20 - 10.70 10*3/?L RBC 5.85 (*) 4.26 - 5.52 10*6/?L HGB 14.8 12.2 - 16.4 g/dL HCT 47.8 38.4 - 49.3 % MCV 81.7 81.7 - 95.6 fL MCH 25.3 (*) 26.1 - 32.7 pg MCHC 31.0 (*) 31.2 - 35.0 g/dL RDW-SD 49.9 38.5 - 51.6 fL RDW-CV 17.8 (*) 12.1 - 15.4 % PLT 238 150 - 328 10*3/?L MPV 10.4 9.8 - 13.0 fL NRBC/100 WBC 0.4 0.0 - 10.0 /100 WBCs NRBC x1030.02 10*3/?L GRAN MAT (NEUT) % 42.9 % IMM GRAN % 0.00 % LYMPH % 44.3 % MONO % 10.9 % EOS % 1.3 % BASO % 0.6 % GRAN MAT x103(ANC) 2.01 1.99 - 6.95 10*3/uL IMM GRAN x103<0.03 0.00 - 0.06 10*3/uL LYMPH x1032.08 1.09 - 3.23 10*3/uL MONO x1030.51 0.36 - 1.02 10*3/uL EOS x1030.06 0.06 - 0.53 10*3/uL BASO x1030.03 0.01 - 0.09 10*3/uL COMP. METABOLIC PANEL (28143) - Abnormal NA 141 135 - 145 mmol/L K 4.4 3.5 - 5.0 mmol/L CL 109 (*) 98 - 108 mmol/L CO2 TOTAL 23 23 - 31 mmol/L AGAP 9 2 - 16 BUN 29 (*) 7 - 23 mg/dL GLUCOSE 113 (*) 70 - 110 mg/dL CREATININE 1.76 (*) 0.60 - 1.25 mg/dL TOTAL BILI 1.6 (*) 0.1 - 1.1 mg/dL CALCIUM 9.0 8.6 - 10.6 mg/dL T PROTEIN 8.0 6.3 - 8.2 g/dL ALBUMIN 4.3 3.5 - 5.0 g/dL ALK PHOS 60 34 - 122 U/L ALTv 18 5 - 50 U/L AST(SGOT) 36 13 - 40 U/L eGFR 44.5 mL/min/1.73m2 TROPONIN I - Abnormal TROPONIN I 0.049 (*) <=0.034 ng/mL N-TERMINAL PRO-BNP - Abnormal NT-proBNP 3,490 (*) <=125 pg/mL MAGNESIUM - Normal MAGNESIUM 1.9 1.7 - 2.4 mg/dL Imaging XR Chest 1 vw Final Result XR CHEST 1 VW COMPARISON: No comparison available Ordering provider: MICHELLE MIRANDA CLINICAL INDICATIONS: cough TECHNIQUE: Appropriate radiographic technique and conforming to ALARA FINDINGS: Marked chronic cardiomegaly since 06/01/2022 with permanent transvenous pacemaker. Otherwise the lungs are clear and without acute chest disease. IMPRESSION 1. Marked chronic cardiomegaly 2. No acute chest disease HS:Y Orders and Treatments Orders Placed This Encounter Procedures Critical Care XR Chest 1 vw CBC WITH DIFF COMP. METABOLIC PANEL (18373) TROPONIN I N-TERMINAL PRO-BNP Magnesium MRSA / MSSA Screen by PCR, Nares Prothrombin Time (PT) / INR aPTT (for use with Heparin Drip) Influenza A B RSV COVID NAAT Lab Only COVID Interpretation Cbc with Diff Basic Metabolic Panel (NA, K, CL, CO2, GLUCOSE, BUN, CREATININE, CA) Thyroid Stimulating Hormone N-Terminal Pro-Bnp Consult Cardiology Consult Wound, Ostomy, or Continence Care Team: Wound Care; ADC; WOC Nurse Orders Placed This Encounter Medications amiodarone (CORDARONE) 900 mg in D5W 500 mL infusion DISCONTD: amiodarone (CORDARONE) 900 mg in D5W 500 mL infusion amiodarone 150 mg/100 mL (NEXTERONE) RTU infusion 150 mg fentanyl PF (SUBLIMAZE (PF)) injection 50 mcg ondansetron (ZOFRAN (PF)) injection 4 mg DISCONTD: enoxaparin (LOVENOX) injection 40 mg heparin (1,000 unit/mL, 10 mL vial) heparin 25,000 Units/250 mL (Premixed Bag) in 0.45 % NS ondansetron (ZOFRAN (PF)) injection 4 mg HYDROcodone-acetaminophen (NORCO 5) tablet 1 tablet acetaminophen (TYLENOL) tablet 650 mg allopurinoL (ZYLOPRIM) tablet 300 mg aspirin chewable tablet 81 mg atorvastatin (LIPITOR) tablet 80 mg busPIRone (BUSPAR) tablet 5 mg gabapentin (NEURONTIN) capsule 100 mg lidocaine-prilocaine (EMLA) 2.5-2.5 % cream lisinopriL (PRINIVIL,ZESTRIL) tablet 5 mg methocarbamoL (ROBAXIN) tablet 500 mg metoprolol succinate XL (TOPROL XL) tablet 12.5 mg pantoprazole (PROTONIX) EC tablet 40 mg spironolactone (ALDACTONE) tablet 25 mg proCHLORperazine (COMPAZINE) injection 5 mg amiodarone (CORDARONE) 900 mg in NaCl 0.9% (NS) 500 mL infusion Procedures EKG Time 1146 Rate 72 Ventricular paced Abnormal EKG MDM Patient was evaluated for an emergency medical condition related to Cough Diagnoses considered but not limited to: ACS Dysrhythmia Labs:were ordered, and resulted, any relevant abnormalities were considered. Abnormal Labs Reviewed CBC WITH DIFF - Abnormal; Notable for the following components: Result Value RBC 5.85 (*) MCH 25.3 (*) MCHC 31.0 (*) RDW-CV 17.8 (*) All other components within normal limits COMP. METABOLIC PANEL (31580) - Abnormal; Notable for the following components: CL 109 (*) BUN 29 (*) GLUCOSE 113 (*) CREATININE 1.76 (*) TOTAL BILI 1.6 (*) All other components within normal limits TROPONIN I - Abnormal; Notable for the following components: TROPONIN I 0.049 (*) All other components within normal limits Narrative: Reference (Normal) Range (defined by the 99th [...] results relative to patient's use of biotin. N-TERMINAL PRO-BNP - Abnormal; Notable for the following components: NT-proBNP 3,490 (*) All other components within normal limits Narrative: Positive: Heart Failure Likely PROTHROMBIN TIME / INR - Abnormal; Notable for the following components: PROTIME PATIENT 13.2 (*) All other components within normal limits ACTIVATED PARTIAL THRMPLAS MILKA - Abnormal; Notable for the following components: APTT Patient 79 (*) All other components within normal limits Narrative: The [facility] patient population mean normal value for aPTT is 30 seconds. CBC WITH DIFF - Abnormal; Notable for the following components: RBC 5.69 (*) MCV 80.8 (*) MCH 24.8 (*) MCHC 30.7 (*) RDW-CV 17.7 (*) All other components within normal limits BASIC METABOLIC PANEL (NA, K, CL, CO2, GLUCOSE, BUN, CREATININE, CA) - Abnormal; Notable for the following components: CO2 TOTAL 22 (*) BUN 31 (*) GLUCOSE 111 (*) CREATININE 2.18 (*) All other components within normal limits N-TERMINAL PRO-BNP - Abnormal; Notable for the following components: NT-proBNP 5,580 (*) All other components within normal limits Narrative: Positive: Heart Failure Likely Imaging:This is a teaching institution and preliminary studies are read by physicians in training. A final read by a radiologist will be confirmatory of preliminary studies or may include addenda. A reasonable attempt will be made to contact the patient or family to communicate findings if necessary. ED Course as of 08/10/24 1247 Tue Aug 09, 2024 1540 ADC bed requested [DN] 1406 No beds in the CCU [place] will hold at this time [DN] 1404 Transfer initiated PPC [DN] [address] Sanderson at length in regards to patient. He recommends transfer [DN] ED Course User Index [DN] Michelle Miranda MD Diagnosis/Impression as of 08/10/24 1247 Palpitations Chest pain, unspecified type AdmissionCare Guideline: Chest Pain, Observation Based on the indications selected for the patient, the bed status of Observation was determined to be MET The following indications were selected as present at the time of evaluation of the patient: - Observation Care Admission Criteria - Observation care is indicated for 1 or more of the following: - Other aspect of patient presentation indicative of need for monitoring or testing beyond emergency department treatment time frame (eg, concern for arrhythmia) AdmissionCare documentation entered by: Michelle Miranda [facility], 28th edition, Copyright ? 2023 [facility] [employer] All Rights Reserved. [id number]:28-06:00 Medical Decision Making Problems Addressed: Palpitations: acute illness or injury Amount and/or Complexity of Data Reviewed Labs: ordered. Decision-making details documented in ED Course. Radiology: ordered and independent interpretation performed. Decision-making details documented in ED Course. Risk Prescription drug management. Parenteral controlled substances. Decision regarding hospitalization. Pulse Oximetry: is not hypoxic. Interpreted. Reassessment:stable Communication with computing consultant: None. Limitations to patient care and compliance: none. Plan & Summary: The patient is a 58-year-old gentleman who presents for palpitations. He is well-known to our ED and has a history of uncontrolled hypertension and CHF. He has a EF of 10 to 15%. He has a pacemaker defibrillator. He denies any discharge of his device. He admits to chest pain workup demonstrates that he is having runs of possibly V. tach or atrial flutter. He responded well to amiodarone bolus and drip. Labs are abnormal but not emergent. The patient has a mildly elevated troponin which is likely secondary to his underlying heart disease and not an ischemic issue at this time. There are no beds in [place]. I did speak with Dr. Thomason at length in regards to this patient. He recommended transfer however there are no beds. The patient was admitted to the inpatient medicine service here in [facility] for further management. Bryan Parada is a 58 year old male presenting [...] Up ED Disposition ED Disposition Admit - ICU Condition -- Comment -- Current Discharge Medication List STOP taking these medications cephALEXin 500 mg capsule Comments: Reason for Stopping: atorvastatin 80 mg tablet Comments: Reason for Stopping: furosemide 80 mg tablet Comments: Reason for Stopping: lisinopriL 5 mg tablet Comments: Reason for Stopping: metoprolol succinate XL 25 mg 24 hr tablet Comments: Reason for Stopping: apixaban 5 mg tablet Comments: Reason for Stopping: aspirin 81 mg chewable tablet Comments: Reason for Stopping: busPIRone 5 mg tablet Comments: Reason for Stopping: empagliflozin (JARDIANCE) 10 mg tablet Comments: Reason for Stopping: gabapentin 100 mg capsule Comments: Reason for Stopping: omeprazole 40 mg capsule Comments: Reason for Stopping: spironolactone (ALDACTONE) 25 mg tablet Comments: Reason for Stopping: lidocaine-prilocaine 2.5-2.5 % cream Comments: Reason for Stopping: methocarbamoL 500 mg tablet Comments: Reason for Stopping: allopurinoL 300 mg tablet Comments: Reason for Stopping: blood sugar diagnostic strip Comments: Reason for Stopping: Blood-Glucose Meter Kit Comments: Reason for Stopping: Lancets Misc Comments: Reason for Stopping: Future Appointments In 2 days ADC DEVICE CLINIC 1 [facility], [facility] In 6 days Brooks Barker NP [facility] 1 [facility], Tabitha Walton Jr., MD Clinical Keg Inspector [facility] Emergency Department Dragon Dictation Software is used frequently and may produce errors. Promptly contact for obvious discrepancies. Michelle Miranda MD 08/10/24 1252 [facility] EMERGENCY PHYSICIAN [facility] - [id number] 11:27:00 Associated Order(s): Critical Care Critical Care Performed by: Michelle Miranda MD Authorized by: Michelle Miranda MD Critical care provider statement: Critical care time (minutes): 45 Critical care time was exclusive of: Separately billable procedures and treating other patients and teaching time Critical care was necessary to treat or prevent imminent or life-threatening deterioration of the following conditions: Cardiac failure Critical care was time spent personally [...] separately billable procedures and treating other patients. [facility]2025-01-07 11:27:00 AdmissionCare Guideline: Chest Pain, Observation Based on the indications selected for the patient, the bed status of Observation was determined to be MET The following indications were selected as present at the time of evaluation of the patient: - Observation Care Admission Criteria - Observation care is indicated for 1 or more of the following: - Other aspect of patient presentation indicative of need for monitoring or testing beyond emergency department treatment time frame (eg, concern for arrhythmia) AdmissionCare documentation entered by: Michelle Miranda [facility], edition, Copyright ? 2023 [facility] All Rights Reserved. [id number]:38:28-06:00 [facility]2024-12-31 11:56:32 TRANSITIONAL CARE MANAGEMENT ASSESSMENT 08/02/2024 Bryan Parada [id number] Bryan Parada is a 58 year old Black or male was admitted on 07/31/[address] He was discharged on 08/01/24 with discharge disposition of HR- Routine Discharge. Admitting Physician: Tio Perez Discharge Diagnosis: FINAL DIAGNOSIS: (the reason, after study, for admitting the patient to the hospital) Minor bleeding from pacemaker implantations site (no pocket hematoma/infection) Linked Episodes Type: Episode: Status: Noted: Resolved: Last update: Updated by: TRANSITION OF CARE tcm Active 08/01/2024 08/02/2024 11:55 AM Flip Zavala RN Comments: TCM Xrv-vnla-ct-face outreach documentation: Discharge Assessment Chart Assessed: 08/02/24 TCM Outreach Completed: 08/02/24 Do you have a few minutes to speak with me about how you are doing at home?: Yes (Pt reports he is doing alright.) Discharge Instructions Do you understand your at-home instructions?: Yes (No questions at this time.) Medications Have you filled your prescriptions and do you have them in your home? : Yes Do you know how to take your medications?: Yes (No questions.) Supplies Did you receive applicable home medical supplies/equipment?: N/A Follow Up Appointment Has a follow up appointment been scheduled?: No May I assist with scheduling this appointment?: CM scheduled appointment (First available appt with PCP 08/15/2024; pt declined a sooner appointment with a different provider.) Home Health Assistance Has the home health nurse contacted you since you've been home?: N/A Survey - Recognition Do you have any other questions or concerns at this time?: No Future Appointments: Future Appointments Provider Department Dept Phone 08/11/2024 2:00 PM ADC DEVICE CLINIC 1 [facility], [facility] [phone] 08/15/2024 3:00 PM Brooks Barker NP [facility] [phone] 09/01/2024 1:50 AM [facility] DEVICE [facility] 1 [facility], [facility] [phone] [facility] Flip Zavala [place] [id number] 15:18:01 Problem: Falls, Risk of Goal: Absence of falls Outcome: Not progressing as expected Problem: Discharge Planning Goal: Adequate for discharge Outcome: Not progressing as expected Goal: Adequate to move to next level of care Outcome: Not progressing as expected Problem: Activity Intolerance Goal: Improved activity tolerance Outcome: Not progressing as expected Problem: Cardiac Output - Decreased Goal: Absence of signs and symptoms of decreased cardiac output Outcome: Not progressing as expected Goal: Cardiac output within specified parameters Outcome: Not progressing as expected Problem: Gas Exchange - Impaired Goal: Adequate oxygenation Outcome: Not progressing as expected LE HELPER Merry Young [place] [id number] 02:57:57 Problem: Falls, Risk of Goal: Absence of falls Outcome: Progressing as expected [address]12-29 21:24:47 07/31/242117 Patient Observation Patient Observations Patient still c/o chest pain at incisional site,Tyelenol ineffective.Notified MD. [facility] Wendy Acuna [place] [address]-12-29 16:33:21 Patient transferred to [facility] for diagnosis of pacemaker surgical site wound. Patient agrees to transfer/admit plan and verbalized understanding of plan of care, family aware of plan. Patient awake alert, oriented, resp reg unlabored, skin w/d. No adverse reaction to medications given while in ED. Report given to [facility] personnel. [address]12-29 16:31:52 Report given to [facility] personnel [place] [address]-12-29 16:30:55 Report given to YARELIS Kendrick [facility] [place] [address]-12-29 16:14:29 Spoke to Lt JAHAIRA Walker ETA 15 min [facility] Adilene Navarro [id number] 16:07:58 Pt given sandwich, juice, pudding [place] 672624-12-29 15:20:16 Assuming care of pt [place] [id number] 13:43:34 Pt arrived ambulatory states his pacemaker started bleeding this morning with dizziness and tiredness. Pacemaker placed 07/25/24, denies injury. [facility] Maria Luisa Pathak [id number] 15:14:39 Pt discharged with diagnosis of visit for wound check. Printed and verbal instructions reviewed with and given to pt. PT verbalized understanding of teaching and recommended follow-up. Denies questions or concerns at this time. Pt ambulatory at discharge. Appears in no apparent distress. No ataxia noted. [place] [address]-12-26 14:22:56 Pt to ED CO bleeding to insertion site of pacemaker. States that it was recently placed at [facility], and the dermabond peeled off. RAFAEL Samuel [facility] [id number] 14:19:00 Images from the original note were not included. 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 He had the pacemaker changed on July 18. He reports the lateral aspect of incision site is slightly open and was bleeding. Therefore he presents for evaluation. He denies other complaints. Here for evaluation. Past Medical History/Immunizations: Past Medical History: Diagnosis [...] 05/03/2015 Tetanus received in last 5 years: No Childhood immunizations: Up-to-date Allergies: Allergies Allergen Reactions Imdur [Isosorbide Mononitrate] Other - See comments Severe hypotension, likely from severe LVH per Dr. Sanderson. Past Social History: Tobacco Use Never smoked or used smokeless tobacco. Passive Exposure: Past Vaping Use Never used Alcohol Use Not Currently. Comments: 1 cup of whiskey but last dirnk in December Drug Use Never. Sexual Activity Sexually active; Partners: Male, Female; Control/Protection: Condom. Past Surgical History: Past Surgical History: Procedure Laterality Date COLONOSCOPY N/A 02/19/2017 Surgeon: Fran Canchola MD; Location: [facility] OR Location ESOPHAGOGASTRODUODENOSCOPY N/A 07/20/2019 Surgeon: Maddi Ballesteros MD; Location: [facility] OR [facility] ESOPHAGOGASTRODUODENOSCOPY N/A 04/03/2021 Surgeon: Fran Trinh MD; Location: [facility] ([facility]) OR Location JOINT SURGERY Right 11/2016 Right knee PACEMAKERS INSERTION Review of Systems: Review of Systems Constitutional: Negative for chills and fever. Respiratory: Negative for cough. Cardiovascular: Negative for chest pain. Gastrointestinal: Negative for abdominal pain and vomiting. Genitourinary: Negative for dysuria. Musculoskeletal: Negative for arthralgias, neck pain and neck stiffness. Skin: Positive for wound. Neurological: Negative for dizziness. Psychiatric/Behavioral: Negative for agitation. Endocrine: Negative for goiter. Physical Exam: ED Triage Vitals [07/28/24 1423] Weight 127 kg (280 lb) Actual or estimated Estimated by patient/family report Height 1.88 m (6' 2") BP (!) 160/105 Pulse 117 Resp 17 Temp 36.6 ?C (97.9 ?F) Temp source Oral SpO2 100 % Measured on Room air Physical Exam Vitals and nursing note reviewed. Constitutional: Appearance: Normal appearance. He is obese. HENT: Head: Normocephalic and atraumatic. Cardiovascular: Rate and Rhythm: Normal rate. Pulses: Normal pulses. Pulmonary: Effort: Pulmonary effort is normal. No respiratory distress. Chest: Abdominal: General: There is no distension. Tenderness: There is no abdominal tenderness. Musculoskeletal: General: Normal range of motion. Cervical back: Neck supple. Skin: General: Skin is warm. Neurological: General: No focal deficit present. Mental Status: He is alert and oriented to person, place, and time. Radiology: No orders to display Lab Results: Lab Results - No data to display EKG: If EKG completed, see Procedure Note. Orders and Treatments: No orders of the defined types were placed in this encounter. No orders of the defined types were placed in this encounter. First Provider Eval: ED Events Date/Time Event User Comments 07/28/24 1438 Medical Screening Begins MARY REYNAGA DO -- 07/28/24 1438 First Provider Evaluation MARY REYNAGA DO -- ED COURSE Diagnosis/Impression as of 07/28/24 1456 Visit for wound check Procedures: Procedures MDM: Medical Decision Making The patient presents from home for evaluation for a check of his pacemaker incision site. He had the pacemaker changed on July 18. He reports the lateral aspect of incision site is slightly open and was bleeding. Therefore he presents for evaluation. He denies other complaints. Vital signs are stable in the ER. The lateral 1.5 cm of his pacemaker incision is slightly open without any active drainage or bleeding. Dermabond was used for skin closure. He has follow-up scheduled with cardiology for next month. He remained stable here in the ER and is okay for discharge home. Problems Addressed: Visit for wound check: acute illness or injury Risk OTC drugs. Flowsheet Documentation: Scoring Tools: No data recorded Disposition/Condition: ED Disposition ED Disposition Discharge Condition Stable Comment -- Discharge Medications: Patient's Medications START taking these medications No medications on file CONTINUE taking these medications which have NOT CHANGED ALLOPURINOL 300 MG TABLET Take 1 tablet by mouth every morning. APIXABAN 5 MG TABLET Take 1 tablet by mouth in the morning and 1 tablet in the evening. Indications: atrial fibrillation ASPIRIN 81 MG CHEWABLE TABLET Take 1 tablet by mouth in the morning. ATORVASTATIN 80 MG TABLET Take 1 tablet by mouth at bedtime. BLOOD SUGAR DIAGNOSTIC STRIP Check blood sugar 2 times a day. E11.9. Brand per insurance. BLOOD-GLUCOSE METER KIT Check sugars 2 times a day. Dx. Code E11.9 Brand per Insurance BUSPIRONE 5 MG TABLET Take 1 tablet by mouth in the morning and 1 tablet in the evening. EMPAGLIFLOZIN (JARDIANCE) 10 MG TABLET Take 1 tablet by mouth in the morning. FUROSEMIDE 80 MG TABLET Take 1 tablet by mouth every morning and evening. GABAPENTIN 100 MG CAPSULE Take 1 capsule by mouth in the morning and 1 capsule at noon and 1 capsule in the evening. LANCETS [facility] Check sugars 1 times a day. Dx Code E11.9. Brand per insurance. LIDOCAINE-PRILOCAINE 2.5-2.5 % CREAM Apply to area(s) 2 (two) times daily. LISINOPRIL 5 MG TABLET Take 1 tablet by mouth in the morning. METHOCARBAMOL 500 MG TABLET Take 1 tablet by mouth 3 (three) times daily as needed for Pain (scale 7-10) (Knee pain). METOPROLOL SUCCINATE XL 25 MG 24 HR TABLET Take 1/2 (one-half) tablet by mouth in the morning. OMEPRAZOLE 40 MG CAPSULE Take 1 capsule by mouth in the morning. SPIRONOLACTONE (ALDACTONE) 25 MG TABLET Take 1 tablet by mouth in the morning. START taking Modified Medications as Prescribed No medications on file STOP taking these medications No medications on file Follow-up: Electronically signed by: Mary Reynaga DO 07/28/24 1457 [facility]2024-12-26 14:16:06 Spoke with patient he states that he is at the ER. [facility] Jackie Mims [facility]7894[facility]-24 12:05:42 Bryan Parada is a 58 year old male Pts Nurse Patricia is calling and would like to report that yesterday when pt went to bed his pacemaker looked fine that clinical laboratory scientist placed. She states that his pacemaker looks tore up today and pt states that it is very painful to touch. She states that pt was screaming in pain when she was cleaning the blood off the site. Nurse Patricia got in contact with the [facility] Resort Manager and spoke with the nurses and they advised pt that he should go to the ER. Nurse just wanted to report what was going on to his Merchandise Director. Please advise. PH [phone] LE HELPER Rachel Choudhary [facility]2024-12-20 14:02:40 TRANSITIONAL CARE MANAGEMENT ASSESSMENT 07/22/2024 Bryan Parada [id number] Bryan Parada is a 58 year old Black or male was admitted on 07/13/[address] He was discharged on 07/21/24 with discharge disposition of HR- Routine Discharge. 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 : No Medication Interventions?: (per pt, "i have to get a ride to get them") Do you know how to take your medications?: Yes Supplies Did you receive applicable home medical supplies/equipment?: N/A Follow Up Appointment Has a follow up appointment been scheduled?: No May I assist with scheduling this appointment?: Unable to schedule-referred to HFU Team Do you have any questions about your follow up appointments?: No Are you able to get to your appointment? Who will be taking you?: Yes Home Health Assistance Has the home health nurse contacted you since you've been home?: Yes Survey - Recognition Is there anything you would like to share about your recent hospitalization, or anyone you would like to recognize?: No Do you have any suggestions for improvement?: No Do you have any other questions or concerns at this time?: No Future Appointments: Future Appointments Provider Department Dept Phone 07/25/2024 10:00 AM Nerissa, Heart Failure Nurse Practitioner-Counts include 234 beds at the [facility] Cardiology, [facility] [phone] 09/01/2024 1:50 AM [facility] 1 [facility] [phone] 11/10/2024 9:00 AM [facility] 1 [facility] [phone] Order Questions Question Answer Comment When (Patients with risk for unplanned readmission score over 16 or those noted as Hospital Dependent should follow up within 7 days with PCP or primary DX specialist): 3-5 Days Note: Follow-Up Date or Schedule Discharge Disposition: HOME, (AHR) Risk of Unplanned Readmission:( Score greater than 16 indicates high risk) 24.86 Other Scheduling Considerations: Subspecialty Heart Failure Collection Information Specimen Type: Comments Heart failure patient. If [facility] clinic, Nursing Staff to call clinic for follow-up appointment to be scheduled within 7 days of discharge. LE HELPER Ayan Dodd [facility]hea7628-29-81 15:48:22 Pt discharge education complete, pending meds to bed delivery for discharge. RAFAEL Napier [facility] [id number] 13:53:23 Images from the original note were not included. CARE MANAGEMENT Care Coordinators/Social Workers/CM Specialists/Utilization Review/Patient Placement & Transfer Center 07/21/2024 1:53 PM Care Management Discharge Disposition Note (DCDN) 5-2-1 Interventions: Disease specific education, Teach back, Follow-up phone calls, Follow-up appointments, Clear discharge plan 5-2-1 Providers: Physician, Beater And Pulper Feeder/Chief Human Resources Officer 5-2-1 Patient Capacity Improvements: Avoidance of adverse events/readmission Discussed with patient/patients family involved in decision making: Patient or family caregiver understands, and agrees with discharge plan Patient's family or support contact: Kandis Parada (dtr) [phone] Discharge Plan for ongoing care and services: Home/Caregiver Home, Home Health (HH) Discharge Location: Home Health location: [address] [place] [address] (P) [phone] (F) [phone] Home/Caregiver address: [address] [place] [address] Other Living arrangements: [address] [place] [address] Transportation: Taxi [employer] Voucher Discharge Medications Will the patient be able to obtain his medications? Yes Does the patient have transportation to to obtain the prescription medications? Yes Expected discharge date: 07/21/24 Time: 1600 Name of RN informed of discharge: Jitendra BAKER Additional Information: n/a CM/SW Name & Contact number: Deana Goncalves RN The following information has been provided to the facility noted above: reason for the patient discharge or transfer; patients physical and psychosocial status; summary of care, treatment, services provided to patient; and the patient progress toward goals. [facility]2024-12-18 18:22:32 Problem: Falls, Risk of Goal: Absence of falls Outcome: Progressing as expected Problem: Cardiac Output - Decreased Goal: Absence of signs and symptoms of decreased cardiac output Outcome: Progressing as expected Problem: Pain Goal: Control of pain at or below patient's documented comfort goal Outcome: Progressing as expected Goal: Reduction in pain sensation Outcome: Progressing as expected Problem: Discharge Planning Goal: Adequate for discharge Outcome: Progressing as expected Goal: Effective communication Outcome: Progressing as expected Problem: Glucose control Goal: Glucose level within specified parameters Outcome: Progressing as expected Problem: Bleeding, Risk of Goal: Absence of active bleeding Outcome: Progressing as expected Problem: Procedure Routine Goal: Absence of post-procedure complications Outcome: Progressing as expected Goal: Knowledge of procedure Outcome: Progressing as expected [facility]2024-12-18 03:51:36 Problem: Falls, Risk of Goal: Absence of falls Outcome: Progressing as expected Problem: Cardiac Output - Decreased Goal: Absence of signs and symptoms of decreased cardiac output Outcome: Progressing as expected Problem: Pain Goal: Control of pain at or below patient's documented comfort goal Outcome: Progressing as expected Goal: Reduction in pain sensation Outcome: Progressing as expected Problem: Discharge Planning Goal: Adequate for discharge Outcome: Progressing as expected Goal: Effective communication Outcome: Progressing as expected Problem: Glucose control Goal: Glucose level within specified parameters Outcome: Progressing as expected Problem: Bleeding, Risk of Goal: Absence of active bleeding Outcome: Progressing as expected Problem: Procedure Routine Goal: Absence of post-procedure complications Outcome: Progressing as expected Goal: Knowledge of procedure Outcome: Progressing as expected [facility] David Hodge [facility]Lcxwww4728-13-62 08:43:00 Problem: Falls, Risk of Goal: Absence of falls Outcome: Progressing as expected Problem: Cardiac Output - Decreased Goal: Absence of signs and symptoms of decreased cardiac output Outcome: Progressing as expected Problem: Pain Goal: Control of pain at or below patient's documented comfort goal Outcome: Progressing as expected Goal: Reduction in pain sensation Outcome: Progressing as expected Problem: Discharge Planning Goal: Adequate for discharge Outcome: Progressing as expected Goal: Effective communication Outcome: Progressing as expected Problem: Bleeding, Risk of Goal: Absence of active bleeding Outcome: Progressing as expected Problem: Glucose control Goal: Glucose level within specified parameters Outcome: Progressing as expected Problem: Procedure Routine Goal: Absence of post-procedure complications Outcome: Progressing as expected Goal: Knowledge of procedure Outcome: Progressing as expected [facility] Fran Sahni [id number] 07:27:00 Problem: Falls, Risk of Goal: Absence of falls Outcome: Progressing as expected Problem: Cardiac Output - Decreased Goal: Absence of signs and symptoms of decreased cardiac output Outcome: Progressing as expected Problem: Pain Goal: Control of pain at or below patient's documented comfort goal Outcome: Progressing as expected Goal: Reduction in pain sensation Outcome: Progressing as expected Problem: Discharge Planning Goal: Adequate for discharge Outcome: Progressing as expected Goal: Effective communication Outcome: Progressing as expected Problem: Bleeding, Risk of Goal: Absence of active bleeding Outcome: Progressing as expected Problem: Glucose control Goal: Glucose level within specified parameters Outcome: Progressing as expected Problem: Procedure Routine Goal: Absence of post-procedure complications Outcome: Progressing as expected Goal: Knowledge of procedure Outcome: Progressing as expected [facility]2024-12-15 14:23:03 Problem: Falls, Risk of Goal: Absence of falls Outcome: Progressing as expected Problem: Cardiac Output - Decreased Goal: Absence of signs and symptoms of decreased cardiac output Outcome: Progressing as expected Problem: Pain Goal: Control of pain at or below patient's documented comfort goal Outcome: Progressing as expected Goal: Reduction in pain sensation Outcome: Progressing as expected Problem: Discharge Planning Goal: Adequate for discharge Outcome: Progressing as expected Goal: Effective communication Outcome: Progressing as expected [facility] Merry Young [facility] [id number] 22:42:48 Problem: Falls, Risk of Goal: Absence of falls Outcome: Progressing as expected Problem: Cardiac Output - Decreased Goal: Absence of signs and symptoms of decreased cardiac output Outcome: Progressing as expected Problem: Pain Goal: Control of pain at or below patient's documented comfort goal Outcome: Progressing as expected Goal: Reduction in pain sensation Outcome: Progressing as expected Problem: Discharge Planning Goal: Adequate for discharge Outcome: Progressing as expected Goal: Effective communication Outcome: Progressing as expected [facility] Frida Trujillo [facility] [id number] 18:56:09 Problem: Falls, Risk of Goal: Absence of falls Outcome: Progressing as expected Problem: Cardiac Output - Decreased Goal: Absence of signs and symptoms of decreased cardiac output Outcome: Progressing as expected Problem: Pain Goal: Control of pain at or below patient's documented comfort goal Outcome: Progressing as expected Goal: Reduction in pain sensation Outcome: Progressing as expected Problem: Discharge Planning Goal: Adequate for discharge Outcome: Progressing as expected Goal: Effective communication Outcome: Progressing as expected [facility] [id number] 04:23:54 Problem: Falls, Risk of Goal: Absence of falls Outcome: Progressing as expected Problem: Cardiac Output - Decreased Goal: Absence of signs and symptoms of decreased cardiac output Outcome: Progressing as expected Problem: Pain Goal: Control of pain at or below patient's documented comfort goal Outcome: Progressing as expected Goal: Reduction in pain sensation Outcome: Progressing as expected Problem: Discharge Planning Goal: Adequate for discharge Outcome: Progressing as expected Goal: Effective communication Outcome: Progressing as expected [facility] Merline Treadwell [facility]Jwsuhd5954-78-17 18:28:28 Problem: Falls, Risk of Goal: Absence of falls Outcome: Progressing as expected Problem: Cardiac Output - Decreased Goal: Absence of signs and symptoms of decreased cardiac output Outcome: Progressing as expected Problem: Pain Goal: Control of pain at or below patient's documented comfort goal Outcome: Progressing as expected Goal: Reduction in pain sensation Outcome: Progressing as expected Problem: Discharge Planning Goal: Adequate for discharge Outcome: Progressing as expected Goal: Effective communication Outcome: Progressing as expected [facility]2024-12-12 14:03:35 Bryan Parada is a 58 year old male with a PMH of obesity, HTN, DM II, HLD, CAD, NICM, chronic combined CHF s/p AICD, asthma, CKD III who presents for chest pain and DELGADO. Initial workup significant for elevated troponins with a peak of 0.339, hypertensive urgency, and elevated NTproBNP of 7200 2/2 HF exacerbation. Pt started on IV lasix for diuresis and NTG for CP with improvement. SOB improved with diuresis. EP was consulted for device interrogation and recommended generator replacement 07/18/24. V/Q scan 07/16 did not show evidence of PE. Underwent RHC on 07/19 with mildly elevated filling pressure and low CO/CI. Pt had hyperkalemia on several daily bmp's improved with lokelma. Lokelma not covered by insurance so d/c and K+ monitored on current GDMT dose, titrated appropriately. Pt with resolution of SOB and CP. Plan for OP EP evaluation as well as cardiac MRI. At this time, pt is medically optimized for discharge. [facility]2024-12-12 10:13:39 Problem: Falls, Risk of Goal: Absence of falls Outcome: Progressing as expected LE HELPER Ousmane Saavedra [facility] HospitalIzxanm0443-11-90 15:46:40 Patient transferred to [place] [id number] for diagnosis of congestive heart failure, hypertension, chest pain, elevated troponin, chronic kidney disease Patient agrees to transfer/admit plan and verbalized understanding of plan of care, family aware of plan Patient awake alert, oriented, resp reg unlabored, skin w/d PIV patent, no s/s infiltration noted, No adverse reaction to medications given while in ED. Report given to [facility] EMS personnel [facility]2024-12-11 15:23:47 Nurse Report Report given to YARELIS Duarte. Chief complaint, assessment findings, infusion verify and orders reviewed. Plan of care discussed with both nurses. Rosa Alfredo RN [place] [address]-12-11 15:10:27 Spoke with LT Walker [facility] ETA 30 to 40 min LE HELPER Adilene [facility]Mer[facility] HospitalTrtkhk0130-76-98 14:23:00 Pts niece Linda Katz called for update on patient. She was upset stating she needed to know now if he was being transferred or not, why he wasn't allowed pain medications and what the findings were. She was argumentative on answers I was giving. I verbalized patient had not complained of pain therefore no medications were ordered, I wasn't going to discuss medical information over the phone as I could not identify who she was. She stated [place] another [place]. She ended up hanging up the phone when I told her I would go check on the patient personally. I entered room to ask about his pain. I told him about his family member calling being upset on the phone inquiring about him. Pt stated, "Don't worry about her. I never called her. She's just trying to act like she's somebody. You don't tell her anything." LE HELPER Alena Barton [place] [id number] 11:52:03 Patient arrived ambulatory c/o sent over from [facility] office for high blood pressure and EF 5%. Patient complains of chest wall pain in the center of his chest. LE HELPER Rosa Alfredo [facility] ProvidenceSbbqaa9249-32-24 10:45:00 Images from the original note were not included. Venipuncture collection performed by clean technique on the right anticubitus. Total of 1 attempts were made. Slight pressure and a bandage/dressing were applied to the site(s). The patient experienced no complications. The following specimens were processed according to instructions and sent to [facility] laboratories per lab order on 07/13/2024: LT BLUE SST 1 RED LAV 2 PPT DK GREEN (LiHep) DK GREEN (SodH) HERZOG DK BLUE (K2) DK BLUE (S) ACD Blood Culture NIPT/NTD [place] [id number] 16:11:34 TRANSITIONAL CARE MANAGEMENT ASSESSMENT 07/06/2024 Bryan Parada [id number] Bryan Parada is a 58 year old Black or male was admitted on 07/03/24 to [facility], ADC MED SURG. He was discharged on 07/04/24 with discharge disposition of HR- Routine Discharge. Admitting Physician: Bj Weiss Discharge Diagnosis: Chest pain, unspecified type Linked Episodes Type: Episode: Status: Noted: Resolved: Last update: Updated by: TRANSITION OF CARE tcm Active 07/04/2024 07/06/2024 4:07 PM Flip Zavala, RN Comments: TCM Gst-gzxe-vo-face outreach documentation: Discharge Assessment Chart Assessed: 07/06/24 TCM Outreach Completed: 07/06/24 Do you have a few minutes to speak with me about how you are doing at home?: Yes Discharge Instructions Do you understand your at-home instructions?: Yes (No questions at this time.) Medications Have you filled your prescriptions and do you have them in your home? : N/A (No new medications prescribed at discharge.) Supplies Did you receive applicable home medical supplies/equipment?: N/A Follow Up Appointment Has a follow up appointment been scheduled?: Yes Are you able to get to your appointment? Who will be taking you?: Yes Home Health Assistance Has the home health nurse contacted you since you've been home?: N/A Survey - Recognition Do you have any other questions or concerns at this time?: No Future Appointments: Future Appointments Provider Department Dept Phone 07/13/2024 11:00 AM David Ladd MD [facility] [phone] 07/13/2024 11:30 AM Brooks Barker NP [facility] [phone] 09/01/2024 1:50 AM [facility] 1 [facility] Cardiac Device ClinTabitha [place] [phone] 11/10/2024 9:00 AM [facility] 1 [facility] [phone] RAFAEL Zavala [facility] - [id number] 11:18:17 CM made follow up call to patient post-discharge. No answer and call went to voicemail. CM left a discreet message with purpose of call and CM's call back information. [facility]2024-12-02 11:34:16 Problem: Discharge Planning Goal: Adequate for discharge Outcome: Resolved Goal: Adequate to move to next level of care Outcome: Resolved Goal: Knowledge of medication management Outcome: Resolved Problem: Cardiac Output - Decreased Goal: Absence of signs and symptoms of decreased cardiac output Outcome: Resolved Problem: Pain Goal: Control of pain at or below patient's documented comfort goal Outcome: Resolved Goal: Reduction in pain sensation Outcome: Resolved Problem: Venous Thromboembolism, (actual or risk of) Goal: Absence of venous thromboembolism (Risk) Outcome: Resolved Goal: Prevent further complications associated with VTE diagnosis (Actual) Outcome: Resolved Problem: Falls, Risk of Goal: Absence of falls Outcome: Resolved [facility] Azalia Whitfield [facility]Cycqmw6917-89-80 10:57:18 Images from the original note were not included. Pharmacy Recommendations for Patient Admission: Patient says he is on jardiance 10mg in the morning Patient says he takes methocarbamol 500mg TID as needed for knee pain The BOAT DOCK OPERATOR medication list has been updated and reflected in the chart below. Please use the BOAT DOCK OPERATOR Med List for ordering home doses during admission. Patient Adherence: Adherent to all medications. Source(s) used in interview: Patient Medications Added Medications Removed Medications Modified Please add jardiance 10mg in the morning -per patient Please add methocarbamol 500mg TID prn - per patient Protonix ordered in place of omeprazole Allergies as of 07/03/2024 - Reviewed 07/03/2024 Allergen Reaction Noted Imdur [isosorbide mononitrate] Other - See comments 04/04/2020 Pharmacy Updated [facility]PER[facility] Med List Medication Sig apixaban 5 mg tablet Take 1 tablet by mouth in the morning and 1 tablet in the evening. Indications: atrial fibrillation aspirin 81 mg chewable tablet Take 1 tablet by mouth in the morning. atorvastatin 40 mg tablet Take 1 tablet by mouth at bedtime. busPIRone 5 mg tablet Take 1 tablet by mouth in the morning and 1 tablet in the evening. carvediloL 25 mg tablet Take 1 tablet by mouth in the morning and 1 tablet in the evening. Take with meals. empagliflozin (JARDIANCE) 10 mg tablet Take 1 tablet by mouth in the morning. furosemide 40 mg tablet Take 1 tablet by mouth in the morning and 1 tablet at noon and 1 tablet in the evening. gabapentin 100 mg capsule Take 1 capsule by mouth in the morning and 1 capsule at noon and 1 capsule in the evening. omeprazole 40 mg capsule Take 1 capsule by mouth in the morning. spironolactone (ALDACTONE) 25 mg tablet Take 1 tablet by mouth in the morning. methocarbamoL 500 mg tablet Take 1 tablet by mouth 3 (three) times daily as needed for Pain (scale 7-10) (Knee pain). allopurinoL 300 mg tablet Take 1 tablet by mouth every morning. Outpatient Pharmacy Contact Information: [facility]/pharmacy #[id number] - [place], [place] - [address] [place] [address] [address] Thank you for the opportunity to participate in the care of this patient. RAFAEL Jordan RUST [id number] 06:22:57 Problem: Discharge Planning Goal: Adequate for discharge [...] pain sensation Outcome: Progressing as expected Problem: Venous Thromboembolism, (actual or risk of) Goal: Absence of venous thromboembolism (Risk) Outcome: Progressing as expected Goal: Prevent further complications associated with VTE diagnosis (Actual) Outcome: Progressing as expected [facility] [id number] 18:19:06 Patient admitted to 2226 for diagnosis of chest pain, Nstemi, hypertensive emergency Patient agrees to admission, discussed plan of care with patient and family. Patient is awake, alert, oriented, resp reg unlabored, color appropriate for race, PIV intact No adverse reaction to medications administered while in ED Belongings with patient to unit LE HELPER Pretty Luna [place] [id number] 18:17:55 Report given to YARELIS Burntete [place] [id number] 15:17:12 Patient to ED for chest pain and shortness of breath since last night. Pain got worse this morning. RAFAEL Bianchi [place] [id number] 15:12:00 EMERGENCY DEPARTMENT ENCOUNTER [facility] Patient Name: Bryan Parada Date of : 1965 58 year old Exam Room:[place] [address] Primary Care Physician: Brooks Barker Pre- Hospital Patient Escorted by: Mode of Arrival: EMS - [facility] ([place]) [43] EMS Treatment Prior to ED Arrival: BOAT DOCK OPERATOR treatment: Saline lock;Oxygen;NTG;Medication (comment) BOAT DOCK OPERATOR treatment comments: 324mg asa and 1 nitro ED Events Date/Time Event User Comments 07/03/246 Medical Screening Begins MICHELLE MIRANDA MD -- 07/03/24 151 First Provider Evaluation MICHELLE MIRANDA MD -- Chief Complaint Chief Complaint Patient presents with Chest Pain Shortness of Breath ED Triage Notes Chuckie Bianchi RN 07/03/2024 15:17 Patient to ED for chest pain and shortness of breath since last night. Pain got worse this morning. HPI History provided by: Patient Chest Pain Pain location: Substernal area Pain quality: pressure Pain radiates to: Does not radiate Pain severity: No pain Chronicity: New Relieved by: Nothing Worsened by: Nothing Associated symptoms: shortness of breath Associated symptoms: no abdominal pain, no cough, no dizziness, no fatigue, no fever, no headache, no nausea, no palpitations and no vomiting Past Medical History / [...] Tetanus received in last 5 years: Unknown Childhood immunizations: Up-to-date Past Surgical History Past Surgical History: Procedure Laterality Date COLONOSCOPY N/A 02/19/2017 Surgeon: Fran Canchola MD; Location: [facility] OR [facility] ESOPHAGOGASTRODUODENOSCOPY N/A 07/20/2019 Surgeon: Maddi Ballesteros MD; Location: [facility] OR [facility] ESOPHAGOGASTRODUODENOSCOPY N/A 04/03/2021 Surgeon: Fran Trinh MD; Location: Endoscopy ([facility]) OR Location JOINT SURGERY Right 11/2016 Right knee PACEMAKERS INSERTION Allergies Allergies Allergen Reactions Imdur [Isosorbide Mononitrate] Other - See comments Severe hypotension, likely from severe LVH per Dr. Sanderson. Social History Tobacco Use Never smoked or used smokeless tobacco. Passive Exposure: Past Vaping Use Never used Alcohol Use Not Currently. Comments: 1 cup of whiskey but last dirnk in December Drug Use Never. Sexual Activity Sexually active; Partners: Male, Female; Control/Protection: Condom. Review of Systems Review of Systems Constitutional: Negative. Negative for chills, fatigue, fever and unexpected weight change. HENT: Negative. Eyes: Negative. Negative for discharge and itching. Respiratory: Positive for shortness of breath. Negative for cough, chest tightness and wheezing. Cardiovascular: Positive for chest pain. [...] Endocrine negative Physical Exam ED Triage Vitals [07/03/24 1517] Weight 127 kg (280 lb) Actual or estimated Height 1.88 m (6' 2") BP (!) 147/104 Pulse 99 Resp 26 Temp 35.9 ?C (96.7 ?F) Temp source Oral SpO2 100 % Measured on Physical Exam Vitals reviewed. Constitutional: Appearance: He is well-developed. HENT: Head: Normocephalic and atraumatic. Nose: Nose normal. Eyes: Conjunctiva/sclera: Conjunctivae normal. Neck: Trachea: No tracheal deviation. Cardiovascular: Rate and Rhythm: Normal rate and regular rhythm. Heart sounds: Normal heart sounds. No murmur heard. No friction rub. Pulmonary: Effort: Pulmonary effort is normal. No respiratory distress. Breath sounds: Normal breath sounds. No stridor. No wheezing or rales. Abdominal: General: Bowel sounds are normal. There is no distension. Palpations: Abdomen is soft. Tenderness: There is no abdominal tenderness. There is no guarding or rebound. Musculoskeletal: General: Normal range of motion. Cervical back: Normal range of motion and neck supple. Skin: General: Skin is warm and dry. Neurological: Mental Status: He is alert and oriented to person, place, and time. Cranial Nerves: No cranial nerve deficit. Sensory: No sensory deficit. Psychiatric: Behavior: Behavior normal. Labs Lab Results CBC WITH DIFF - Abnormal Result Value Ref Range WBC 5.62 4.20 - 10.70 10*3/?L RBC 5.39 4.26 - 5.52 10*6/?L HGB 14.0 12.2 - 16.4 g/dL HCT 46.0 38.4 - 49.3 % MCV 85.3 81.7 - 95.6 fL MCH 26.0 (*) 26.1 - 32.7 pg MCHC 30.4 (*) 31.2 - 35.0 g/dL RDW-SD 52.2 (*) 38.5 - 51.6 fL RDW-CV 17.2 (*) 12.1 - 15.4 % PLT 193 150 - 328 10*3/?L MPV 10.8 9.8 - 13.0 fL NRBC/100 WBC 0.0 0.0 - 10.0 /100 WBCs NRBC x103<0.01 10*3/?L GRAN MAT (NEUT) % 45.1 % IMM GRAN % 0.20 % LYMPH % 38.6 % MONO % 14.2 % EOS % 1.4 % BASO % 0.5 % GRAN MAT x103(ANC) 2.53 1.99 - 6.95 10*3/uL IMM GRAN x103<0.03 0.00 - 0.06 10*3/uL LYMPH x1032.17 1.09 - 3.23 10*3/uL MONO x1030.80 0.36 - 1.02 10*3/uL EOS x1030.08 0.06 - 0.53 10*3/uL BASO x1030.03 0.01 - 0.09 10*3/uL COMP. METABOLIC PANEL (83309) - Abnormal NA 141 135 - 145 mmol/L K 3.5 3.5 - 5.0 mmol/L CL 106 98 - 108 mmol/L CO2 TOTAL 26 23 - 31 mmol/L AGAP 9 2 - 16 BUN 27 (*) 7 - 23 mg/dL GLUCOSE 69 (*) 70 - 110 mg/dL CREATININE 2.09 (*) 0.60 - 1.25 mg/dL TOTAL BILI 0.8 0.1 - 1.1 mg/dL CALCIUM 9.0 8.6 - 10.6 mg/dL T PROTEIN 7.3 6.3 - 8.2 g/dL ALBUMIN 3.9 3.5 - 5.0 g/dL ALK PHOS 79 34 - 122 U/L ALTv 18 5 - 50 U/L AST(SGOT) 34 13 - 40 U/L eGFR 36.2 mL/min/1.73m2 TROPONIN I - Abnormal TROPONIN I 0.047 (*) <=0.034 ng/mL N-TERMINAL PRO-BNP - Abnormal NT-proBNP 7,260 (*) <=125 pg/mL PROTHROMBIN TIME / INR - Abnormal PROTIME PATIENT 13.8 (*) 10.1 - 12.6 Seconds INR 1.2 LIPASE - Normal LIPASE 73 0 - 220 U/L ACTIVATED PARTIAL THRMPLAS MILKA - Normal APTT Patient 32 26 - 36 Seconds Imaging XR CHEST 1 VW Final Result History: chest pain . Exam: XR CHEST 1 VW Date: 07/03/2024 3:30 PM Ordering provider: MICHELLE MIRANDA Comparison: 05/15/2024. Findings: Frontal view of the chest is obtained. Left-sided pacemaker ICD is noted. The cardiac silhouette is severely enlarged. There is severe dextroscoliosis centered in the midthoracic spine. There are mild bilateral perihilar opacities. Small left pleural effusion is possible. No evidence of pneumothorax. IMPRESSION Impression: Mild bilateral perihilar opacities, which could reflect edema or pneumonia. RL: 781 HS: Y Orders and Treatments Orders Placed This Encounter Procedures Critical Care XR CHEST 1 VW CBC WITH DIFF COMP. METABOLIC PANEL (79846) LIPASE TROPONIN I N-TERMINAL PRO-BNP Prothrombin Time / INR aPTT aPTT (for use with Heparin Infusion) Basic Metabolic Panel (NA, K, CL, CO2, GLUCOSE, BUN, CREATININE, CA) Magnesium Serum N-Terminal Pro-Bnp Troponin I Phosphorus Serum POCT GLUCOSE (AUTOMATED) Consult Cardiology Orders Placed This Encounter Medications HEPARIN SODIUM (PORCINE) 1,000 UNIT/ML BOLUS ACS ORDER SET heparin (1,000 unit/mL, 10 mL vial) for Rebolusing heparin 25,000 Units/250 mL (Premixed Bag) in 0.45 % NS labetaloL (NORMODYNE) 5 mg/mL injection 10 mg fentanyl PF (SUBLIMAZE (PF)) injection 50 mcg ondansetron (ZOFRAN (PF)) injection 4 mg aspirin chewable tablet 81 mg busPIRone (BUSPAR) tablet 5 mg carvediloL (COREG) tablet 25 mg furosemide (LASIX) injection 40 mg gabapentin (NEURONTIN) capsule 100 mg pantoprazole (PROTONIX) EC tablet 40 mg acetaminophen (TYLENOL) tablet 650 mg morphine (2 mg/mL) injection 2 mg HYDROcodone-acetaminophen (NORCO 5) tablet 1 tablet ondansetron (ZOFRAN (PF)) injection 4 mg dextrose 50 % in water (D50W) injection 25 mL glucagon HCL injection 1 mg Sliding Scale Insulin - Lispro (HumaLOG) atorvastatin (LIPITOR) tablet 40 mg Procedures EKG Time 1518 Rate 99 Atrial paced [place] normal QTc prolonged Abnormal EKG MDM Patient was evaluated for an emergency medical condition related to Chest Pain and Shortness of Breath Diagnoses considered but not limited to: NSTEMI Hypertensive Emergency Labs:were ordered, and resulted, any relevant abnormalities were considered. Abnormal Labs Reviewed CBC WITH DIFF - Abnormal; Notable for the following components: Result Value MCH 26.0 (*) MCHC 30.4 (*) RDW-SD 52.2 (*) RDW-CV 17.2 (*) All other components within normal limits COMP. METABOLIC PANEL (92364) - Abnormal; Notable for the following components: BUN 27 (*) GLUCOSE 69 (*) CREATININE 2.09 (*) All other components within normal limits TROPONIN I - Abnormal; Notable for the following components: TROPONIN I 0.047 (*) All other components within normal limits Narrative: Reference (Normal) Range (defined by the 99th [...] results relative to patient's use of biotin. N-TERMINAL PRO-BNP - Abnormal; Notable for the following components: NT-proBNP 7,260 (*) All other components within normal limits Narrative: Positive: Heart Failure Likely PROTHROMBIN TIME / INR - Abnormal; Notable for the following components: PROTIME PATIENT 13.8 (*) All other components within normal limits Imaging:Ordered, and resulted, any relevant abnormalities were considered. Diagnosis/Impression as of 07/03/242033 Chest pain, unspecified type NSTEMI (non-ST elevated myocardial infarction) Hypertensive emergency AdmissionCare Guideline: Chest Pain - INPT, Inpatient Based on the indications selected for the patient, the bed status of Inpatient was determined to be MET The following indications were selected as present at the time of evaluation of the patient: - Clinical Indications for Admission to Inpatient Care - Admission is indicated for 1 or more of the following: - Chest pain indicative of serious diagnosis other than coronary artery disease (eg, aortic dissection, pulmonary embolism) AdmissionCare documentation entered by: Michelle Miranda [facility] [employer], 28th edition, Copyright ? 2023 [facility] [employer] All Rights Reserved. [id number]:08:50-06:00 Medical Decision Making Problems Addressed: Chest pain, unspecified type: acute illness or injury Hypertensive emergency: acute illness or injury NSTEMI (non-ST elevated myocardial infarction): acute illness or injury Amount and/or Complexity of Data Reviewed Labs: ordered. Decision-making details documented in ED Course. Radiology: ordered and independent interpretation performed. Decision-making details documented in ED Course. ECG/medicine tests: ordered and independent interpretation performed. Decision-making details documented in ED Course. Risk Prescription drug management. Parenteral controlled substances. Decision regarding hospitalization. Pulse Oximetry: is not hypoxic. Interpreted. Reassessment:stable Communication with computing consultant: Internal Medicine Limitations to patient care and compliance: none. Plan & Summary: Bryan Parada is a 58 year old male presenting [...] before final disposition and determined to be stable. Disposition & Follow Up ED Disposition ED Disposition Admit - Inpatient Condition -- Comment -- Current Discharge Medication List STOP taking these medications apixaban 5 mg tablet Comments: Reason for Stopping: aspirin 81 mg chewable tablet Comments: Reason for Stopping: atorvastatin 40 mg tablet Comments: Reason for Stopping: busPIRone 5 mg tablet Comments: Reason for Stopping: carvediloL 25 mg tablet Comments: Reason for Stopping: empagliflozin (JARDIANCE) 10 mg tablet Comments: Reason for Stopping: furosemide 40 mg tablet Comments: Reason for Stopping: gabapentin 100 mg capsule Comments: Reason for Stopping: omeprazole 40 mg capsule Comments: Reason for Stopping: spironolactone (ALDACTONE) 25 mg tablet Comments: Reason for Stopping: KETOCONAZOLE 2 % cream Comments: Reason for Stopping: ammonium lactate 12 % cream Comments: Reason for Stopping: lidocaine-prilocaine 2.5-2.5 % cream Comments: Reason for Stopping: methocarbamoL 500 mg tablet Comments: Reason for Stopping: allopurinoL 300 mg tablet Comments: Reason for Stopping: blood sugar diagnostic strip Comments: Reason for Stopping: Blood-Glucose Meter Kit Comments: Reason for Stopping: Lancets Misc Comments: Reason for Stopping: Future Appointments In 3 days Rebecca Michele MD [facility] Pain Management, [facility] In 1 week David Ladd MD [facility] Cardiology, [facility], [facility] In 1 week Brooks Barker NP [facility]ICE [facility] 1 [facility] Cardiac Device [facility] In 4 months [facility] 1 [facility] Cardiac Device Clinic, [facility] Michelle Miranda Jr., MD Clinical Keg Inspector [facility] Emergency Department [employer] is used frequently and may produce errors. Promptly contact for obvious discrepancies. Michelle Miranda MD 07/03/242034 [facility] - [id number] 15:12:00 Associated Order(s): Critical Care Critical Care Performed by: Michelle Miranda MD Authorized by: Michelle Miranda MD Critical care provider statement: Critical care time (minutes): 60 Critical care time was exclusive of: Separately billable procedures and treating other patients and teaching time Critical care was necessary to treat or prevent imminent or life-threatening deterioration of the following conditions: Cardiac failure and circulatory failure Critical care was time spent personally [...] separately billable procedures and treating other patients. [facility]2024-12-01 15:12:00 AdmissionCare Guideline: Chest Pain - INPT, Inpatient Based on the indications selected for the patient, the bed status of Inpatient was determined to be MET The following indications were selected as present at the time of evaluation of the patient: - Clinical Indications for Admission to Inpatient Care - Admission is indicated for 1 or more of the following: - Chest pain indicative of serious diagnosis other than coronary artery disease (eg, aortic dissection, pulmonary embolism) AdmissionCare documentation entered by: Michelle Miranda [facility], 28th edition, Copyright ? 2023 [facility] All Rights Reserved. [id number]:08:50-06:00 [facility]2024-11-20 13:45:37 [place] for [facility] HH notified. [facility] Soni Duffy [facility] [id number] 13:00:54 Yes. I would be following patient with home health [facility]2024-11-20 10:44:12 Bryan Parada is a 58 year old male [facility] with [facility] called wanting to know if PCP will follow pt for home health. Please advise. LE HELPER Madhuri JimenezMercy Health St. [facility] HospitalPzdhdp2743-12-09 14:58:55 Patient notified of results. He verbalized understanding of results/recommendations. No further questions or concerns at this time. LE HELPER Jackie Mims RNMercy Health St[facility] HospitalXtjemr7663-52-85 12:40:14 Images from the original note were not included. Attempted to contact patient with results/recommendations. LVM for patient to return call to [phone]. David Ladd MD P Cardiology Nurse Creatinine mildly elevated 1.8. Rest of the CMP within acceptable limits. NT-proBNP stable at 3740. Magnesium levels normal. Continue the cardiac medications without any further changes. Follow-up as planned LE HELPER No Montoya MAMercy [facility] St[facility] HospitalRqarvk6617-33-63 11:15:00 Images from the original note were not included. Venipuncture collection performed by clean technique on the left anticubitus. Total of 1 attempts were made. Slight pressure and a bandage/dressing were applied to the site(s). The patient experienced no complications. The following specimens were processed according to instructions and sent to [facility] laboratories per lab order on 06/20/2024 : LT BLUE SST 2 RED LAV 2 PPT DK GREEN (LiHep) DK GREEN (SodH) HERZOG DK BLUE (K2) DK BLUE (S) ACD Blood Culture NIPT/NTD Pt will bring urine back at later date [facility]2024-11-04 13:31:32 Images from the original note were not included. Notification [employer] placed in PUMPER HEAD Dawna folder for review. LE HELPER Chasity [facility]2024-10-16 12:33:34 TRANSITIONAL CARE MANAGEMENT ASSESSMENT 05/18/2024 Bryan Parada [id number] Bryan Parada is a 58 year old Black or male was admitted on 05/15/24 to [facility] ICU. He was discharged on 05/17/24 with discharge disposition of HR- Routine Discharge. Admitting Physician: Yared Larios Discharge Diagnosis: Principal Diagnosis: Hypertensive emergency Linked Episodes Type: Episode: Status: Noted: Resolved: Last update: Updated by: TRANSITION OF CARE tcm Active 05/17/2024 05/18/2024 12:32 PM Flip Zavala RN Comments: TCM [id number] outreach documentation: Discharge Assessment Chart Assessed: 05/18/24 TCM Outreach Completed: 05/18/24 Do you have a few minutes to speak with me about how you are doing at home?: Yes (Pt reports he is "alright".) Discharge Instructions Do you understand your at-home instructions?: Yes (No questions at this time.) Medications Have you filled your prescriptions and do you have them in your home? 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 Who will be taking you?: Yes (friend) Home Health Assistance Has the home health nurse contacted you since you've been home?: Yes ([facility] will resume care 05/19/2024.) Survey - Recognition Do you have any other questions or concerns at this time?: No Future Appointments: Future Appointments Provider Department Dept Phone 05/20/2024 2:00 PM Brooks Barker NP [facility] [phone] 05/25/2024 3:00 PM Jeanna Kamara PA-C [facility] Health Gastroenterology, [facility] [phone] 06/01/2024 10:00 AM David Ladd MD [facility] Cardiology, [facility] [phone] 06/23/2024 2:45 PM Danny Steele MD [facility] Eye [facility] [phone] 06/27/2024 10:30 AM David Ladd MD [facility] [place] [phone] 07/06/2024 3:00 PM Reebcca Michele MD [facility] [phone] 07/13/2024 11:30 AM Brooks Barker NP [facility] [place] [phone] 11/10/2024 9:00 AM [facility] 1 [facility] Cardiac Device Clinic, [place] [phone] [facility] HospitalRxquti1813-23-52 18:05:15 Problem: Falls, Risk of Goal: Absence of falls 05/17/20241804 by Jane Singh RN Outcome: Resolved 05/17/2024 08 by Jane Singh RN Outcome: Progressing as expected Problem: Discharge Planning Goal: Adequate for discharge 05/17/20241804 by Jane Singh RN Outcome: Resolved 05/17/2024 0844 by Jane Singh RN Outcome: Progressing as expected Goal: Effective communication 05/17/20241804 by Jane Singh RN Outcome: Resolved 05/17/2024 0844 by Jane Singh RN Outcome: Progressing as expected Problem: Fluid Volume - Imbalanced Goal: Absence of signs and symptoms of imbalanced fluid volume 05/17/20241804 by Jane Singh RN Outcome: Resolved 05/17/2024 08 by Jane Singh RN Outcome: Progressing as expected Problem: Infection, Risk of or Actual Goal: Absence of infection 05/17/2024 180 by Jane Singh RN Outcome: Resolved 05/17/2024843 by Jane Singh RN Outcome: Progressing as expected Problem: Pain Goal: Control of pain at or below patient's documented comfort goal 05/17/2024 180 by Jane Singh RN Outcome: Resolved 05/17/2024843 by Jane Singh RN Outcome: Progressing as expected Goal: Reduction in pain sensation 05/17/2024 180 by Jane Sinhg RN Outcome: Resolved 05/17/2024843 by Jane Singh RN Outcome: Progressing as expected Problem: Respiratory Function - Impaired Goal: Adequate oxygenation 05/17/2024 180 by Jane Singh RN Outcome: Resolved 05/17/2024843 by Jane Singh RN Outcome: Progressing as expected Goal: Adequate work of breathing 05/17/20241804 by Jane Singh RN Outcome: Resolved 05/17/2024843 by Jane Singh RN Outcome: Progressing as expected Problem: Skin integrity Impaired (Risk or Actual) Goal: Prevention of new skin breakdown 05/17/2024 180 by Jane Singh RN Outcome: Resolved 05/17/2024843 by Jane Singh RN Outcome: Progressing as expected Problem: Venous Thromboembolism, (actual or risk of) Goal: Absence of venous thromboembolism (Risk) 05/17/2024 180 by Jane Singh RN Outcome: Resolved 05/17/2024843 by Jane Singh RN Outcome: Progressing as expected Goal: Prevent further complications associated with VTE diagnosis (Actual) 05/17/2024 180 by Jane Singh RN Outcome: Resolved 05/17/2024843 by Jane Singh RN Outcome: Progressing as expected Jane Singh [facility]Gwphbc7452-07-90 17:51:17 Problem: Falls, Risk of Goal: Absence of falls Outcome: Adequate for discharge Problem: Discharge Planning Goal: Adequate for discharge Outcome: Adequate for discharge Goal: Effective communication Outcome: Adequate for discharge Problem: Fluid Volume - Imbalanced Goal: Absence of signs and symptoms of imbalanced fluid volume Outcome: Adequate for discharge Problem: Infection, Risk of or Actual Goal: Absence of infection Outcome: Adequate for discharge Problem: Pain Goal: Control of pain at or below patient's documented comfort goal Outcome: Adequate for discharge Goal: Reduction in pain sensation Outcome: Adequate for discharge Problem: Respiratory Function - Impaired Goal: Adequate oxygenation Outcome: Adequate for discharge Goal: Adequate work of breathing Outcome: Adequate for discharge Problem: Skin integrity Impaired (Risk or Actual) Goal: Prevention of new skin breakdown Outcome: Adequate for discharge Problem: Venous Thromboembolism, (actual or risk of) Goal: Absence of venous thromboembolism (Risk) Outcome: Adequate for discharge Goal: Prevent further complications associated with VTE diagnosis (Actual) Outcome: Adequate for discharge T Suzie Pickett [facility] ProvidenceUfeetw5740-83-21 08:44:34 Problem: Falls, Risk of Goal: Absence of falls Outcome: Progressing as expected Problem: Discharge Planning Goal: Adequate for discharge Outcome: Progressing as expected Goal: Effective communication Outcome: Progressing as expected Problem: Fluid Volume - Imbalanced Goal: Absence of signs and symptoms of imbalanced fluid volume Outcome: Progressing as expected Problem: Infection, Risk of or Actual Goal: Absence of infection Outcome: Progressing as expected Problem: Pain Goal: Control of pain at or below patient's documented comfort goal Outcome: Progressing as expected Goal: Reduction in pain sensation Outcome: Progressing as expected Problem: Respiratory Function - Impaired Goal: Adequate oxygenation Outcome: Progressing as expected Goal: Adequate work of breathing Outcome: Progressing as expected Problem: Skin integrity Impaired (Risk or Actual) Goal: Prevention of new skin breakdown Outcome: Progressing as expected Problem: Venous Thromboembolism, (actual or risk of) Goal: Absence of venous thromboembolism (Risk) Outcome: Progressing as expected Goal: Prevent further complications associated with VTE diagnosis (Actual) Outcome: Progressing as expected [facility] HospitalMezovd8931-93-72 22:34:48 Problem: Falls, Risk of Goal: Absence of falls 05/16/20242233 by Kayy Heath RN Outcome: Progressing as expected 05/16/20242233 by Kayy Heath RN Outcome: Adequate for discharge Problem: Discharge Planning Goal: Adequate for discharge 05/16/20242233 by Kayy Heath RN Outcome: Progressing as expected 05/16/20242233 by Kayy Heath RN Outcome: Adequate for discharge Goal: Effective communication 05/16/20242233 by Kayy Heath RN Outcome: Progressing as expected 05/16/20242233 by Kayy Heath RN Outcome: Adequate for discharge Problem: Fluid Volume - Imbalanced Goal: Absence of signs and symptoms of imbalanced fluid volume 05/16/20242233 by Kayy Heaht RN Outcome: Progressing as expected 05/16/20242233 by Kayy Heath RN Outcome: Adequate for discharge Problem: Pain Goal: Control of pain at or below patient's documented comfort goal 05/16/20242233 by Kayy Heath RN Outcome: Progressing as expected 05/16/20242233 by Kayy Heath RN Outcome: Adequate for discharge Goal: Reduction in pain sensation 05/16/20242233 by Kayy Heath RN Outcome: Progressing as expected 05/16/20242233 by Kayy Heath RN Outcome: Adequate for discharge Problem: Respiratory Function - Impaired Goal: Adequate oxygenation 05/16/20242233 by Kayy Heath RN Outcome: Progressing as expected 05/16/20242233 by Kayy Heath RN Outcome: Adequate for discharge Goal: Adequate work of breathing 05/16/20242233 by Kayy Heath RN Outcome: Progressing as expected 05/16/20242233 by Kayy Heath RN Outcome: Adequate for discharge Problem: Skin integrity Impaired (Risk or Actual) Goal: Prevention of new skin breakdown 05/16/20242233 by Kayy Heath RN Outcome: Progressing as expected 05/16/20242233 by Kayy Heath RN Outcome: Adequate for discharge Problem: Venous Thromboembolism, (actual or risk of) Goal: Absence of venous thromboembolism (Risk) Outcome: Progressing as expected Goal: Prevent further complications associated with VTE diagnosis (Actual) Outcome: Progressing as expected Kayy Heath [facility]Uakzuf7785-40-90 16:37:40 Problem: Falls, Risk of Goal: Absence of falls Outcome: Progressing as expected Problem: Discharge Planning Goal: Adequate for discharge Outcome: Progressing as expected Goal: Effective communication Outcome: Progressing as expected Problem: Fluid Volume - Imbalanced Goal: Absence of signs and symptoms of imbalanced fluid volume Outcome: Progressing as expected Problem: Infection, Risk of or Actual Goal: Absence of infection Outcome: Progressing as expected Problem: Pain Goal: Control of pain at or below patient's documented comfort goal Outcome: Progressing as expected Goal: Reduction in pain sensation Outcome: Progressing as expected Problem: Respiratory Function - Impaired Goal: Adequate oxygenation Outcome: Progressing as expected Goal: Adequate work of breathing Outcome: Progressing as expected Problem: Skin integrity Impaired (Risk or Actual) Goal: Prevention of new skin breakdown Outcome: Progressing as expected [facility] [id number] 06:42:41 Problem: Falls, Risk of Goal: Absence of falls Outcome: Progressing as expected Problem: Discharge Planning Goal: Adequate for discharge Outcome: Progressing as expected Goal: Effective communication Outcome: Progressing as expected Problem: Fluid Volume - Imbalanced Goal: Absence of signs and symptoms of imbalanced fluid volume Outcome: Progressing as expected Problem: Infection, Risk of or Actual Goal: Absence of infection Outcome: Progressing as expected Problem: Pain Goal: Control of pain at or below patient's documented comfort goal Outcome: Progressing as expected Goal: Reduction in pain sensation Outcome: Progressing as expected Problem: Respiratory Function - Impaired Goal: Adequate oxygenation Outcome: Progressing as expected Goal: Adequate work of breathing Outcome: Progressing as expected Problem: Skin integrity Impaired (Risk or Actual) Goal: Prevention of new skin breakdown Outcome: Progressing as expected Alex Bejarano [facility] ProvidenceAyjohi3233-17-63 00:43:40 Problem: Falls, Risk of Goal: Absence of falls Outcome: Progressing as expected Problem: Discharge Planning Goal: Adequate for discharge Outcome: Progressing as expected Goal: Effective communication Outcome: Progressing as expected Problem: Fluid Volume - Imbalanced Goal: Absence of signs and symptoms of imbalanced fluid volume Outcome: Progressing as expected Problem: Infection, Risk of or Actual Goal: Absence of infection Outcome: Progressing as expected Problem: Pain Goal: Control of pain at or below patient's documented comfort goal Outcome: Progressing as expected Goal: Reduction in pain sensation Outcome: Progressing as expected Problem: Respiratory Function - Impaired Goal: Adequate oxygenation Outcome: Progressing as expected Goal: Adequate work of breathing Outcome: Progressing as expected Problem: Skin integrity Impaired (Risk or Actual) Goal: Prevention of new skin breakdown Outcome: Progressing as expected [facility] HospitalExfmrf9988-64-69 16:41:12 Problem: Falls, Risk of Goal: Absence of falls Outcome: Progressing as expected Problem: Discharge Planning Goal: Adequate for discharge Outcome: Progressing as expected Goal: Effective communication Outcome: Progressing as expected Problem: Fluid Volume - Imbalanced Goal: Absence of signs and symptoms of imbalanced fluid volume Outcome: Progressing as expected Problem: Infection, Risk of or Actual Goal: Absence of infection Outcome: Progressing as expected Problem: Pain Goal: Control of pain at or below patient's documented comfort goal Outcome: Progressing as expected Goal: Reduction in pain sensation Outcome: Progressing as expected Problem: Respiratory Function - Impaired Goal: Adequate oxygenation Outcome: Progressing as expected Goal: Adequate work of breathing Outcome: Progressing as expected Problem: Skin integrity Impaired (Risk or Actual) Goal: Prevention of new skin breakdown Outcome: Progressing as expected Kit Bowen [facility]Vbfofq6255-76-22 05:59:06 Problem: Falls, Risk of Goal: Absence of falls 05/15/2024557 by Kim Sosa RN Outcome: Progressing as expected 05/15/2024557 by Kim Sosa RN Outcome: Progressing as expected Problem: Discharge Planning Goal: Adequate for discharge 05/15/2024557 by Kim Sosa RN Outcome: Progressing as expected 05/15/2024557 by Kim Sosa RN Outcome: Progressing as expected Goal: Effective communication 05/15/2024557 by Kim Sosa RN Outcome: Progressing as expected 05/15/2024557 by Kim Sosa RN Outcome: Progressing as expected Problem: Fluid Volume - Imbalanced Goal: Absence of signs and symptoms of imbalanced fluid volume 05/15/2024557 by Kim Sosa RN Outcome: Progressing as expected 05/15/2024557 by Kim Sosa RN Outcome: Progressing as expected Problem: Infection, Risk of or Actual Goal: Absence of infection 05/15/2024557 by Kim Sosa RN Outcome: Progressing as expected 05/15/2024557 by Kim Sosa RN Outcome: Progressing as expected Problem: Pain Goal: Control of pain at or below patient's documented comfort goal 05/15/2024557 by Kim Sosa RN Outcome: Progressing as expected 05/15/2024557 by Kim Sosa RN Outcome: Progressing as expected Goal: Reduction in pain sensation 05/15/2024557 by Kim Sosa RN Outcome: Progressing as expected 05/15/2024557 by Kim Sosa RN Outcome: Progressing as expected Problem: Skin integrity Impaired (Risk or Actual) Goal: Prevention of new skin breakdown Outcome: Progressing as expected Problem: Respiratory Function - Impaired Goal: Adequate oxygenation 05/15/2024557 by Kim Sosa RN Outcome: Progressing as expected 05/15/2024557 by Kim Sosa RN Outcome: Progressing as expected Goal: Adequate work of breathing 05/15/2024 0558 by Kim Sosa RN Outcome: Progressing as expected 05/15/2024 0558 by Kim Sosa RN Outcome: Progressing as expected [place] 540724-10-13 02:58:19 Patient refused second IV. Pretty Luna [place] 90277-10-13 02:05:10 Dr. Larios at bedside. Blaine Britton [place] 655464-10-13 00:42:23 Patient complaining of shortness of breath. 2L NC placed for comfort T [place] 540724-10-13 00:13:20 Pt to ED CO constant CP, SOB, and cough starting 05/14 approx 1000. Cough is dry. Denies nausea. Terri Samuel [place] 655464-10-13 00:12:49 Pt brought in by [facility], c/o chest pain, coughing & SOB that began yesterday per pt. States he also states when he walks or lays down the SOB worsens. 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 Routed to provider for review. Unable to refill per ambulatory refill guidelines. Notes: Name from pharmacy: KETOCONAZOLE 2% CREAM Will file in chart as: KETOCONAZOLE 2 % cream Possible duplicate: Hover to review recent actions on this medication Sig: Apply to area(s) daily. Apply to feet/toes Original sig: APPLY TO AREA(S) DAILY. APPLY TO FEET/TOES Disp: 30 g Refills: 0 (Pharmacy requested: Not specified) Start: 05/05/2024 Class: eRX For: Type 2 diabetes mellitus with complication, without long-term current use of insulin; Onychomycosis; Tinea pedis of both feet Last ordered: 2 weeks ago (04/20/2024) by Brooks Barker NP Last refill: 04/20/2024 Rx #: [id number] Provider Review Required Ezujsj6405/05/2024 03:01 PM Protocol Details This refill cannot be delegated Valid encounter within last 12 months To be filled at: [facility]/pharmacy #[id number] [facility] [address] [place] [address] Last Refilled: 04/20/2024 Recent Visits Date Type Provider Dept 04/13/24 Office Visit Brooks Barker NP [facility] Family [facility] 04/13/24 Office Visit Brooks Barker NP [facility] 01/05/24 Office Visit Brooks Barker NP [facility] Showing recent visits within past 540 days with a meds authorizing provider and meeting all other requirements Future Appointments Date Type Provider Dept 07/13/24 Appointment Brooks Barker NP [facility] Showing future appointments within next 150 days with a meds authorizing provider and meeting all other requirements [facility] - Dsvyex4586-31-38 08:15:27 Images from the original note were [...] Barker NP Last refill: 04/18/2024 Rx #: [id number] Pharmacy comment: Alternative Requested:THE PRESCRIBED MEDICATION IS NOT COVERED BY INSURANCE. PLEASE CONSIDER CHANGING TO ONE OF THE SUGGESTED COVERED ALTERNATIVES. Off-Protocol Ydhhpq4804/18/2024 05:28 PM Protocol Details Medication not assigned to a protocol, forward to provider. Valid encounter within last 12 months This request has changes from the previous prescription. To be filled at: [facility]/pharmacy #[id number] - [place], [place] - [address] Last Refilled:Needs to be changed Recent Visits Date Type Provider Dept 04/13/24 Office Visit Brooks Barker NP [facility] 04/13/24 Office Visit Brooks Barker NP [facility] 01/05/24 Office Visit Brooks Barker NP [facility] Showing recent visits within past 540 days with a meds authorizing provider and meeting all other requirements Future Appointments Date Type Provider Dept 07/13/24 Appointment Brooks Barker NP [facility] Showing future appointments within next 150 days with a meds authorizing provider and meeting all other requirements [facility] HospitalGzguau9829-38-18 16:59:38 POC discussed with pt, referral line number given for orthopedics appt. Pt upset reports gel does not work for him, informed of referral to pain management as well did not verbalize wanting to proceed at this time. ER precautions given, pt states "I will no be going to the ER". Pt verbalizes understanding. Soni Duffy RNMercy [facility] St. [facility] HospitalZpdger1438-92-37 16:48:58 Patient states he is still having knee and medications did not help. Please advise. Eliazar JanK[place]ie [place] 540724-09-16 16:45:11 Patient returning missed call. Please advise. Eliazar JanK[place]ie [place] 540724-09-16 16:41:21 Left detailed VM, Pt to call clinic if further questions or concerns. [place] 540724-09-16 16:31:33 Langley's not prescribed in clinic (Referral for pain management and also be initiated) Started on Methocarbamol and lidocaine gel. Referral placed for orthopedic surgery for further treatment options/knee injections. ER precautions [facility] HospitalNddshw3121-14-48 16:18:50 Call placed pt, Pt reports he [...] they "mess my stomach up", and requesting Langley. Informed pt he may need to come in for an appt as this is a new problem. Pt would like message sent to provider. [place] 540724-09-16 16:03:27 Bryan Parada is a 58 year old male Calling because he's in pain and would like something for this.Pt is requesting dr adan howard Beata [facility]UN[facility] - Kgsxnv3794-53-19 14:32:37 TRANSITIONAL CARE MANAGEMENT ASSESSMENT 04/07/2024 Bryan Parada [id number] Bryan Parada is a 58 year old Black or male was admitted on 04/04/24 to [facility], ADC MED SURG. He was discharged on 04/06/24 with discharge disposition of HR- Routine Discharge. Admitting Physician: Bj Weiss Discharge Diagnosis: Linked Episodes Type: Episode: Status: Noted: Resolved: Last update: Updated by: TRANSITION OF CARE tcm Active 04/06/2024 04/07/2024 2:30 PM Flip Zavala RN Comments: TCM Xal-pper-kp-face outreach documentation: Discharge Assessment Chart Assessed: 04/07/24 [...] with the names or descriptions of any buap-guz-noxfcmt or supplements you are currently taking?: Yes [...] Phone 04/13/2024 12:00 PM Brooks Barker NP [facility], [place] [phone] 04/13/2024 1:00 PM Brooks Barker NP [facility], [place] [address] 04/18/2024 1:00 PM Rebecca Michele MD [facility] Pain Management, [facility] [phone] 04/25/2024 11:30 AM David Ladd MD [facility] Cardiology, [facility] [phone] 04/28/2024 10:00 AM [facility] 1 [facility], [facility] [phone] HospitalDwhska6230-63-07 11:52:06 Problem: Discharge Planning Goal: Adequate for discharge 04/06/2024 1152 by Yamilex Hurt RN Outcome: Adequate for discharge 04/06/2024 0943 by Yamilex Hurt RN Outcome: Progressing as [...] Hurt RN Outcome: Adequate for discharge 04/06/2024 0943 by Yamilex Hurt RN Outcome: Progressing as [...] Goal: Circulatory function within specified parameters 04/06/2024 1152 by Yamilex Hurt RN Outcome: [...] Goal: Absence of venous thromboembolism (Risk) 04/06/2024 1152 by Yamilex Hurt RN Outcome: Adequate for discharge 04/06/2024942 by Yamilex Hurt RN Outcome: Progressing as expected Problem: Glucose control Goal: Glucose level within specified parameters 04/06/2024 115 by Yamilex Hurt RN Outcome: Adequate for discharge 04/06/2024942 by Yamilex Hurt RN Outcome: Progressing as expected Yamilex Hurt [facility]Cukbww6623-72-89 09:43:33 Problem: Discharge Planning Goal: Adequate for [...] within specified parameters Outcome: Progressing as expected [facility] - Qcxufn5637-39-53 22:17:23 Problem: Discharge Planning Goal: Adequate for [...] parameters Outcome: Progressing as expected Jitendra Rae RNMercy Health St. [facility] HospitalRsqpfl8837-38-38 16:21:12 Images from the original note were not included. Sudha WangMercy Health St. [facility] HospitalSbsiov2581-53-21 13:41:45 Problem: Discharge Planning Goal: Adequate for [...] within specified parameters Outcome: Progressing as expected [facility] HospitalPfgxcv8674-51-86 22:16:36 Problem: Discharge Planning Goal: Adequate for [...] within specified parameters Outcome: Progressing as expected Antonieta Stoddard [facility] ProvidenceXznacf8187-98-43 17:03:54 Problem: Discharge Planning Goal: Adequate for [...] within specified parameters Outcome: Progressing as expected [facility] HospitalPxoute5453-93-16 15:50:26 Nurse Report Report given to Yarelis Vieyra. Chief complaint, assessment findings. Zach Rodriguez RN Zach Rodriguez [facility] ProvidenceGomcfn7324-76-98 13:31:52 Oxygen 91% on room air, placed on 2L NC, saturation up to 94% [facility] HospitalEwhmfl2049-10-33 11:56:54 Patient to ED for chest pain and shortness of breath when walking that started yesterday. Chuckie Bianchi RNMercy Health St. [facility] HospitalOxfdic8151-93-30 11:50:00 EMERGENCY DEPARTMENT ENCOUNTER 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 treatment: None ED Events Date/Time Event User [...] N/A 02/19/2017 Surgeon: Fran Canchola MD; Location: [facility] OR Location ESOPHAGOGASTRODUODENOSCOPY N/A 07/20/2019 Surgeon: Maddi Ballesteros MD; Location: [facility] OR Location ESOPHAGOGASTRODUODENOSCOPY N/A 04/03/2021 Surgeon: Fran [...] 1.0 0.0 - 10.0 /100 WBCs NRBC x1030.05 10*3/?L GRAN MAT (NEUT) % 51.0 % IMM GRAN % 0.20 % LYMPH % 34.4 % MONO % 11.9 % EOS % 2.1 % BASO % 0.4 % GRAN MAT x103(ANC) 2.44 1.99 - 6.95 10*3/uL IMM GRAN x103<0.03 0.00 - 0.06 10*3/uL LYMPH x1031.65 1.09 - 3.23 10*3/uL MONO x1030.57 0.36 - 1.02 10*3/uL EOS x1030.10 0.06 - 0.53 10*3/uL BASO x103<0.03 0.01 - 0.09 10*3/uL COMP. METABOLIC PANEL (48072) - Abnormal NA 141 135 - 145 [...] VW CBC WITH DIFF COMP. METABOLIC PANEL (14608) TROPONIN I N-TERMINAL PRO-BNP Cbc without Diff Basic Metabolic Panel (NA, K, CL, CO2, GLUCOSE, BUN, CREATININE, CA) Magnesium Serum N-Terminal Pro-Bnp Hepatic Function Panel (81412) (ALB,T.PRO,BILI T,BU/BC,ALT,AST,ALK PHOS) Troponin I POCT GLUCOSE (AUTOMATED) POCT GLUCOSE (AUTOMATED) POCT GLUCOSE (AUTOMATED) POCT GLUCOSE (AUTOMATED) Consult Cardiology Consult Beater And Pulper Feeder-Adult Orders Placed This Encounter Medications nitroglycerin (NITROSTAT) [...] EKG Time 1202 Rate 85 Atrial paced [place] normal Abnormal EKG MDM Patient was evaluated [...] components within normal limits COMP. METABOLIC PANEL (59205) - Abnormal; Notable for the following components: [...] Positive: Heart Failure Likely HEPATIC FUNCTION PANEL (00599) (ALB,T.PRO,BILI T,BU/BC,ALT,AST,ALK PHOS) - Abnormal; Notable for [...] considered. ED Course as of 04/05/24 1356 ThuApr 04, 2024 1300 Bed requested [DN] ED [...] 3)) AdmissionCare documentation entered by: Michelle Miranda [facility] Splashscore, 28th edition, Copyright ? 2023 [employer] All Rights Reserved. [id number]:16:36-05:00 Medical Decision Making Problems Addressed: Chest pain, [...] is not hypoxic. Interpreted. Reassessment:stable Communication with computing consultant: None. Limitations to patient care and [...] medicine service for further inpatient management. Bryan Parada is a 58 year old male presenting [...] - Observation Condition -- Comment Treatment Team: SAMIRND [[id number]] Current Discharge Medication List STOP taking these [...] Stopping: Future Appointments Tomorrow David Ladd MD [facility], [facility] In 2 days Brooks Barker NP [facility], [facility] In 2 weeks Rebecca Michele MD [facility] 1 [facility], [facility] Michelle Miranda Jr., MD Clinical Keg Inspector [facility] Emergency Department [employer] Dictation Software is used frequently and may produce errors. Promptly contact for obvious discrepancies. Michelle Miranda MD 04/05/24 1357 [facility] - Fdwzvv3793-72-64 11:50:00 Associated Order(s): Critical Care Critical Care [...] separately billable procedures and treating other patients. [facility]2024-09-02 11:50:00 AdmissionCare Guideline: Chest Pain - OBS, [...] 3)) AdmissionCare documentation entered by: Michelle Miranda [facility], 28th edition, Copyright ? 2023 [facility] All Rights Reserved. [id number]:16:36-05:00 [facility]2024-08-20 11:12:07 Referral placed for patient. T [facility] HospitalLbdhlu3678-74-97 10:37:18 Pt is needing a referral for his cardiology visit. Please advise. Thank you. Taye LakhaniMercy Health St. [facility] HospitalMffkxh1043-57-82 21:53:49 Pt given printed and verbal discharge [...] gait, in no apparent distress. Nadege Higuera [facility] ProvidenceNsshxh4368-41-97 19:32:51 L knee swelling started last Thursday, Reports not being able to walk on it. Surgical hx or R knee replacement. Jason Mcnair [facility] ProvidenceTflfnr6112-65-15 15:43:13 Images from the original note were not included. Sudha WangMercy Health St. [facility] HospitalJkqlfk9312-68-91 15:06:59 Left detailed message with referral line number given. Soni Duffy RNMercy Health St. [facility] HospitalIimgek4776-33-62 13:34:36 1. Chronic pain of left knee Has the pain been seen by ortho? - Consult/Referral Pain Clinic [facility] HospitalCojbls8820-94-47 13:31:02 Routing to provider for review. Fiona Mendoza MAMercy Health St. [facility] HospitalVxdeqa3957-17-87 13:23:19 Copied from [facility] #[id number]. Topic: Clinical - Medical Advice >> Feb 25, 2024 1:21 PM Patient Java Development Manager wrote: Bryan Parada is a 58 year old male calling for a referral for pain md. Patient is requesting a referral to: Dept: Pain MD Reason for referral: Pain in left knee Duration of problem: na Internal / External referral: internal Name of provider / location patient requesting: na Appt already scheduled?: no Jolene GrayMer[facility] St[facility] HospitalVdsrtj9575-10-05 08:09:18 Images from the original note were not included. Chasity ReynagaMercy Health St. [facility] HospitalJftpek4910-54-97 15:29:22 We have not attempted to contact pt, left detailed message, pt to call clinic if he requires more assistance. Soni Duffy RNMercy Health St. [facility] HospitalZbluaz4751-19-45 15:18:00 Patient is returning a call he missed from the clinic Live ChambersMercy Health St. [facility] HospitalQbewto1761-25-02 14:14:[address] 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 Soni Duffy RNMercy Health St. [facility] HospitalLfrlah8700-66-90 09:39:03 Bryan Parada is a 58 year old male Pt is calling to find out if the forms he dropped off on 6.12 has been completed Cate MagallanesWakeMed North HospitalPzvotn8272-04-34 11:47:53 Form has been placed in ROIHT Toney folder for completion. Soni Duffy RNMer[facility] St. [facility] HospitalKvpizp3682-20-34 10:12:47 SSI form drop-off, placed in nurse fax folder Chasity ReynagaMercy Health St. [facility] HospitalBhidkp2205-37-22 14:12:58 Dr. Ladd's note and repeat lab orders faxed to [facility]. Jackie Mims [facility] ProvidenceTqrsqj9973-40-79 13:05:28 Notified [facility] Via fax per Dr Ladd with clinical notes. T [facility] HospitalHyzuqg3379-88-42 21:14:19 Recommended repeat labs to be done in around 2 to 3 weeks time. Continue the current cardiac medication without any further changes. Orders placed. Labs 11.19.2023 reviewed NT-proBNP elevated at 2049. Lipid panel acceptable. CMP shows mildly elevated creatinine at 2.05. LFTs within normal limits. TSH within normal limits CBC within acceptable stable limits. Magnesium within normal limits. MAR from the patient's retirement reviewed in detail from cardiac standpoint. Patient noted to be hydralazine 25 twice daily, Eliquis 5 mg twice daily, Lasix 40 twice daily, Lipitor 40 mg daily, aspirin 81 daily, magnesium oxide 400 daily, lisinopril 2.5 mg daily, Jardiance 10 mg daily, spironolactone 25 daily, carvedilol [address] [facility] HospitalFxhgdz9737-59-58 08:30:00 Images from the original note were not included. Venipuncture collection performed by clean technique on the right anticubitus. Total of 1 attempts were made. Slight pressure and a bandage/dressing were applied to the site(s). The patient experienced no complications. The following specimens were processed according to instructions and sent to [facility] laboratories per lab order on 11/19/2023 : LT BLUE SST 1 RED LAV 1 PPT DK GREEN (LiHep) DK GREEN (SodH) HERZOG DK BLUE (K2) DK BLUE (S) ACD Blood Culture NIPT/NTD [facility]2024-04-17 14:30:00 NT-proBNP elevated at 2049. Lipid panel acceptable. CMP shows mildly elevated creatinine at 2.05. LFTs within normal limits. TSH within normal limits CBC within acceptable stable limits. Magnesium within normal limits. Please reach out to [facility] to get the current medication list that he has been taking now so we can make further dose adjustment. [facility]2024-01-04 09:49:23 LVM to call clinic for TTE results and recommendations , letter sent [facility] Sirena Kerr [place] 655464-01-03 09:34:40 Images from the original note were not included. LVM #2 to call clinic for results of TTE David Ladd MD P Cardiology Nurse Echocardiogram shows severe LVH with severely reduced LV systolic function 15 to 20%. No other significant changes noted. Follow-up as planned. RAFAEL Kerr [place] 655464-01-02 14:47:42 Images from the original note were not included. LVM to call clinic for results of TTE David Ladd MD P Cardiology Nurse Echocardiogram shows severe LVH with severely reduced LV systolic function 15 to 20%. No other significant changes noted. Follow-up as planned. [place] 672623-08-26 05:54:44 Pt given printed and verbal discharge instructions regarding bleeding internal hemorrhoid and acuteupper GI bleed, encouraged hydration. Prescriptions provided. Pt verbalized understanding of instructions, pt awake alert oriented, resp reg unlabored, skin w/d,color appropriate for race, moves all ext well, pt encouraged to follow up with pcp. Advised to seek medical attention for new/prolonged/worsening of symptoms. Symptoms addressed. No adverse reaction to meds given in ER noted upon discharge. PIV d'cd, dressing to site, catheter intact. Pt leaving via EMS, in no apparent distress. T [place] 540723-08-26 02:51:11 Requested wheelchair van from [facility], spoke with Denise. ETA 120 minutes, around 0500. T [place] 540723-08-25 20:21:06 Pt brought in by ems for bleeding after having bowel movement today bright red blood, right flank pain after bowel movement. 20 G to the right AC. aJsper Copeland [facility] ProvidenceAqtbco3918-72-86 20:19:00 [facility] Emergency Department Note Patient Name: Bryan Parada Date of : 1965 57 year old male [address] Primary Care Physician: Kim Jones Patient Escorted by: Self [9] Mode of Arrival: EMS - [facility] ([place]) [43] EMS Treatment Prior to ED Arrival: [...] CRI, CHF, COPD, CAD, Obesity who presents withacute onset of mild rectal bleeding after a BM. He is concerned that he is having a gastric bleed as there was blood on the toilet tissue and also in the toilet. Home Meds include: Apixiban 2.5 mg POQD. History provided by: Patient security manager used: No Past Medical History/Immunizations: Past Medical [...] N/A 02/19/2017 Surgeon: Fran Canchola MD; Location: [facility] OR [facility] ESOPHAGOGASTRODUODENOSCOPY N/A 07/20/2019 Surgeon: Maddi Ballesteros MD; Location: [facility] OR [facility] ESOPHAGOGASTRODUODENOSCOPY N/A 04/03/2021 Surgeon: Fran Trinh MD; Location: Endoscopy () OR Location JOINT SURGERY Right 11/2016 Right [...] WO CONTRAST Final Result Ordering physician: JORGE YAÑEZ Indication: Lower GI bleed COMPARISON: CT of [...] with multi lead pacemaker. RL: 460 AFC: 26805 Lab Results: Lab Results CBC WITH DIFF [...] 0.01 - 0.09 10*3/uL COMP. METABOLIC PANEL (96003) - Abnormal NA 138 135 - 145 [...] CONTRAST CBC WITH DIFF COMP. METABOLIC PANEL (37559) URINALYSIS OCCULT (GUAIAC) BLOOD Orders Placed This Encounter Medications HYDROcodone-acetaminophen (NORCO 5) 5-325 mg tablet 1 tablet hydrocortisone 25 mg suppository First Provider Eval: ED Events Date/Time Event User Comments 03/27/232154 Medical Screening Begins JORGE YAÑEZ -- 03/27/232154 First Provider Evaluation JORGE YAÑEZ -- No notes of EC Admission Criteria type on file. ED COURSE ED Course as of 03/28/23226 Sat Mar 28, 2023 012 PMHX: CRI [KV] 0124 RDW-CV(!): 16.4 [KV] [...] rectum 2 (two) times daily as needed forRectal itching/pain for up to 15 doses. CONTINUE [...] MD Specialty: IM-GERIATRIC MEDICINE Relationship: PCP - [address] [place] [address] Electronically signed by: Jorge Yañez NP 03/28/23 0227 Associated attestation - Doris Amaral MD - 03/28/2023 3:21 AM CDT Addendum I was personally available for consultation in the Emergency Department during this encounter and patient evaluation by ROHIT Ya[facility]ez. [id number] 12:50:00 [facility] ([facility]) Cath Post Proc-Full REPORT#:[id number] REPORT STATUS: Signed DATE:03/01/21 TIME:1250 PATIENT: BRYAN PARADA UNIT #: [id number] ROOM/BED: [place] [address] : 66 AGE: 55 SEX: M ATTEND: Stephan Juan MD ADM AUTHOR: Anaya Nieto MD * ALL edits or amendments must be made on the electronic/computer document * Pre-Procedure Presentation General Indication(s) for clinical laboratory scientist: stable known CAD, CHF Cath Procedure Cath Procedure Start date: 03/01/21 Start time: 929 Pre-procedure diagnosis: CHF Post-procedure diagnosis: cardiomyopathy Procedure performed: diag coronary angiography, left heart cath Total contrast volume (mls): 40 ml Performed by: Anaya Nieto MD Ophthalmic Aide(s): Iris Mckeon Procedure details: Right ELECTRICIAN MARINE Access The right common femoral artery was [...] none Implants: none at 1326 RPT #: [id number] END OF REPORT [id number] 12:50:00 [facility] ([facility]) Cardiology Consultation REPORT#:[id number] REPORT STATUS: Signed DATE:03/01/21 TIME:1250 PATIENT: BRYAN PARADA UNIT #: [id number] [address]BED: [address] : [birth year] AGE: 55 SEX: M [...] breath sounds Lower extremity: LE assessment: edema Neuro/LASTING FLOORWORKER: left hemiparesis, alert, oriented X 3 Diagnosis, [...] residula left hemiparesis Continue medicla therapy Needs [facility] at 1335 RPT #: [id number] END OF REPORT [id number] 16:20:268523-9978 [facility] [address] [place] [address] PATIENT NAME: BRYAN PARADA ADMIT DATE: 02/27/21 ACCOUNT NO: [id number] ROOM NO: MSO05 AGE: 55 REPORT TYPE: eECHOCARDIOGRAM REPORT SEX: M ADMITTING PHYSICIAN: Stephan Juan MD ATTENDING PHYSICIAN: Stephan Juan MD *[facility]* [address] [place] [address] Transthoracic Echocardiogram Patient: Bryan Parada Study Date: 02/28/2021 BP: Location: [facility] URN: [id number] : 1965 Age: 55 Height: 74 in / 188 cm Gender: M Weight: 321.2 lb / 146 kg BMI/BSA: 41.3 kg/m 2 / 2.82 m 2 *Ordering Physician: Stephan Llamas *Interpreting Physician: * Anaya NietoTack Puller: Sumanth Sanchez Than Indications: Chest Pain, unspecified. Study data: Transthoracic echocardiogram. Complete 2D, complete spectral Doppler, and color Doppler. Location: Bedside. Patient status: Inpatient. Patient room number: MS05. Study status: Routine. Findings Left ventricle: The cavity size is [...] cava: The vessel is normal in size. Measurements Left ventricle Value 02/05/2021 Ref YANETH, [...] Estimated CVP 3 mm Hg 8 ------ Conclusions Summary: Left ventricle: The cavity [...] 16:20 at 1620 PATIENT NAME: BRYAN PARADA 10:38:00 [facility] Hospitalist Progress Note REPORT#:[id number] REPORT STATUS: Signed DATE:02/28/21 TIME:1038 PATIENT: BRYAN PARADA UNIT #: [id number] ROOM/BED: [place] [address] : 66 AGE: 55 SEX: M ATTEND: [...] Musculoskeletal: normal inspection, straight leg raise neg Neuro/LASTING FLOORWORKER: alert, oriented X 3, normal speech Skin: [...] acute findings in the chest. Impression By: VikramMERGED WITH [facility] - April Marsh M.D. Diagnosis, Assessment Plan Consultants: cardiology [...] hx of HTN at 1045 RPT #: [id number] END OF REPORT [id number] 20:27:00 [facility] ([facility]) Hospitalist History Physical REPORT#:[id number] REPORT STATUS: Signed DATE:02/27/21 TIME:2026 PATIENT: BRYAN PARADA UNIT #: [id number] ROOM/BED: [place] : 67 AGE: 55 SEX: M ATTEND: [...] Musculoskeletal: normal inspection, straight leg raise neg Neuro/LASTING FLOORWORKER: alert, oriented X 3, normal speech [place] Coma Score: Copyright [facility] Copyright [facility] Eye opening: (4) Spontaneous Verbal response: (5) [...] patient Code status: full code Quality: Gen [facility] Crit Care Current Medications Current medication review: [...] DBP >/= 90 at 2105 RPT #: [id number] END OF REPORT [id number] 20:27:00 [facility] ([facility]) Hospitalist History Physical REPORT#:[id number] REPORT STATUS: Signed DATE:02/27/21 TIME:2026 PATIENT: BRYAN PARADA UNIT #: [id number] ROOM/BED: [place] [address] : 67 AGE: 55 SEX: M ATTEND: [...] Musculoskeletal: normal inspection, straight leg raise neg Neuro/LASTING FLOORWORKER: alert, oriented X 3, normal speech Lori [...] SCAN - CTA CHEST FOR PE 02/27 2260 Report Impression - Status: SIGNED Entered: 02/27/2021 3908 IMPRESSION: 1. No evidence for pulmonary embolism, aneurysm or dissection. 2. Cardiomegaly with left ventricular configuration. Pacemaker in place with no cardiac decompensation. 3. Otherwise no acute findings in the chest. Impression By: VikramTess Marsh M.D. Results: labs reviewed Diagnosis, Assessment [...] 90 at 2105 at 1659 RPT #: [id number] END OF REPORT [id number] 14:36:00 [facility] ([facility]) EMERGENCY PROVIDER REPORT REPORT#:[id number] REPORT STATUS: Signed DATE:02/27/21 TIME:1436 PATIENT: BRYAN PARADA UNIT #: [id number] ROOM/BED: [place] [address] : 66 AGE: 55 SEX: M PCP [...] Interpretation Text/Dict Note time 1225 interpreted by sc atrial-ventricular paced rhythm, rate 89, no sgarbossa [...] capacity at this facility. Time of Re-Eval 191 Re-Eval Status Improved ED Course Medication(s) Ordered [...] .STK-MED ONE 02/27 1737 DC 02/27 .ROUTE 1818 Electrolytic, Caloric, And Winston Sig/Mira Start time Last Medication Dose Route Stop Time Status Admin Furosemide 40 MG X1ED STA 02/27 1931 DC 02/27 IV 02/27 Sodium Chloride 100 ML .STK-MED ONE 02/27 1737 DC 02/27 IV 181 Patient Discharge Departure Vital Signs/Condition Vital Signs [...] this patient's care. at 2320 RPT #: [id number] END OF [id number] 12:25:613566-5428 [facility] [address] [place] [address] PATIENT NAME: BRYAN PARADA ADMIT DATE: 02/28/21 ACCOUNT NO: [id number] ROOM NO: [place] [address] AGE: 55 REPORT TYPE: eELECTROCARDIOGRAM SEX: M ADMITTING PHYSICIAN: Stephan Juan MD ATTENDING PHYSICIAN: Stephan Juan MD Order: [id number] Test Reason : CP Test Date/Time Stamp: ThuFeb 27 2021 12:25:42 Blood Pressure : / mmHG Vent. Rate : 089 BPM Atrial Rate : 089 BPM P-R Int : 156 ms QRS Dur : 174 ms QT Int : 458 ms P-R-T Axes : -16 111 -22 degrees QTc Int : 557 ms Artifact is present Confirmed by MD Nieto Amir ([id number]) on 03/28/2021 3:29:47 PM Referred By: Isac Rouse Confirmed by:Anaya Nieto MD at 1530 PATIENT NAME: BRYAN PARADA 16:12:00 [facility] ([facility]) Discharge Summary REPORT#:[id number] REPORT STATUS: Signed DATE:02/09/21 TIME: 1612 PATIENT: BRYAN PARADA UNIT #: [id number] ROOM/BED: [place] [address] : 66 AGE: 55 SEX: M ATTEND: [...] Discharge Instructions Additional Discharge Routines: PCP Follow-Up, Trimming Department Blocker Follow-Up, Fluid Restrictions, F/U Labs/Procedures )( Diet: [...] VTE prophylaxis initiated: yes (Lovenox) at 1613 [facility] #:[id number] END OF [id number] 14:43:719558-[address] [place] [address] PATIENT NAME: BRYAN PARADA ADMIT DATE: 02/04/21 ACCOUNT NO: [id number] ROOM NO: G.3340 AGE: 55 REPORT TYPE: eECHOCARDIOGRAM REPORT SEX: M ADMITTING PHYSICIAN:Precious Bae MD ATTENDING PHYSICIAN:Precious Bae MD *[address] [place] [address] Transthoracic Echocardiogram Patient: Bryan Parada Study Date: 02/05/2021 BP: 139 / 85 Location: [facility] URN: [id number] : 1965 Age: 55 Height: 73.6 in / 187 cm Gender: M Weight: 220 lb / 100 kg BMI/BSA: 28.6 kg/m 2 / 2.3 m 2 *Ordering Physician: * Precious Bae *Interpreting Physician: * Mervat Conroy MD *Tack Puller: * Opal Young Indications: Chest Pain, cardiomyopathy. Study data: Transthoracic echocardiogram. Procedure: Transthoracic echocardiography was performed. Image quality was fair. Complete 2D, complete spectral Doppler, and color Doppler. Location: Emergency department. Patient status: Inpatient. Patient room number: 11. Study status: Routine. Rhythm: Normal sinus rhythm. Findings Left ventricle: The cavity size is [...] are in the normal range (= 50%). Measurements Left ventricle Value 01/03/2021 Ref YANETH, [...] 3.5 --------- Pulmonic valve Value 01/03/2021 Ref MN peak v 1.63 m/sec 1.39 --------- MN peak 11 mm Hg 8 --------- grad [...] Estimated 8 mm Hg 5 --------- CVP Conclusions Summary: 1. Left ventricle: The cavity [...] 14:43 at 1444 PATIENT NAME: BRYAN PARADA [facility]56[facility]00 [facility] REPORT#:[id number] REPORT STATUS: Signed DATE:02/06/21 TIME: 1356 PATIENT: BRYAN PARADA UNIT #: [id number] ROOM[address]BED: [address] : 66 AGE: 55 SEX: M ATTEND: [...] 2100 74 18 113/82 92 97 02/05 191 97.3 73 17 95/53 67.3 98 Room air 02/05 1808 98.1 76 20 129/85 99.3 98 Room air 24 hour I O ending at 0700: 02/06 0702/05 1900 Intake Total Output Total 650 Balance [...] sounds, soft Extremities: moves all, no edema Neuro/LASTING FLOORWORKER: alert, oriented X 3, normal speech Skin: [...] (Auto) (14.0 - 32.0 %) 42.8 H Desha % (Auto) (4.8 - 9.0 %) 10.5 H Eos % (Auto) (0.3 - 3.7 %) 1.9 Baso % (Auto) (0.0 - 2.0 %) 0.4 Neut # (Auto) (2.0 - 7.6 x10 3/uL) 2.28 Lymph # (Auto) (1.0 - 3.8 x10 3/uL) 2.21 Desha # (Auto) (0.1 - 0.8 x10 3/uL) [...] cardiology for discharge and outpatient follow-up [facility] Current Medications Current medication review: I attest that the foregoing medication list in the medical record is true, accurate, and complete to the best of my knowledge. VTE Prophylaxis VTE prophylaxis initiated: yes (Lovenox) at 1402 RPT #:[id number] END OF [id number] 10:48:00 [facility] ([facility]) Cardiology Progress Note REPORT#:[id number] REPORT STATUS: Signed DATE:02/06/21 TIME: 1048 PATIENT: BRYAN PARADA UNIT #: [id number] ROOM/BED: [place] [address] : 66 AGE: 55 SEX: M ATTEND: [...] 859 0835 Furosemide 20 MG BID@0900,1700 02/05 900 AC 02/06 PO 03/07 0859 0836 Lisinopril 5 MG DAILY 02/05 900 AC 02/06 PO 03/07 0859 0835 Spironolactone 25 MG DAILY 02/05 900 AC 02/06 PO 08/05 0859 0836 Carvedilol 25 MG BID MEALS 02/05 08 02/06 PO 03/07 0759 0836 Enoxaparin Sodium [...] PRN PRN 02/04 2115 02/05 IV 02/09 Nitroglycerin 0.4 MG Q5M [...] 2100 74 18 113/82 92 97 02/05 191 36.3 73 17 95/53 67.3 98 Room [...] [address] Conroy or his reservation manager at 1129 RPT #:[id number] END OF [id number] 10:48:00 [facility] ([facility]) Cardiology Progress Note REPORT#:[id number] REPORT STATUS: Signed DATE:02/06/21 TIME: 1048 PATIENT: BRYAN PARADA UNIT #: [id number] ROOM/BED: [place] [address] : 66 AGE: 55 SEX: M ATTEND: [...] BEDTIME 02/05 2100 AC 02/05 PO 03/07 2059 210 Insulin Human Lispro 0 AC HS 02/05 1630 AC SUBQ 03/07 1629 Dextrose/Water 25 ML ASDIR PRN 02/05 1345 CKD IV 03/07 1344 Dextrose/Water 50 ML ASDIR PRN 02/05 134 CKD IV 03/07 1344 Glucagon 1 MG ASDIR PRN 02/05 1345 AC IM 03/07 1344 Amlodipine Besylate 10 MG DAILY 02/05 900 AC 02/06 PO 03/07 0859 0836 Aspirin 81 MG DAILY 02/05 900 AC 02/06 PO 03/07 0859 0835 Clopidogrel Bisulfate 75 MG DAILY 02/05 900 AC 02/06 PO 03/07 0859 0835 Furosemide 20 MG BID@0900,1700 02/05 09 AC 02/06 PO 03/07 0859 0836 Lisinopril [...] MG Q8H 02/04 2115 AC 02/06 PO 08/04 2114 0420 Hydralazine HCl 10 MG Q2H PRN PRN [...] 65 17 103/70 81.0 97 Room air 07/ 0723 73 18 107/73 84.5 96 Room air / 0404 36.5 69 14 127/90 102.5 99 Room air / 2257 36.5 68 18 120/86 97.5 96 Room air / 2100 74 18 113/82 92 97 07/ 1915 36.3 73 17 95/53 67.3 98 [...] [address] Conroy or his reservation manager at 1129 at 1048 RPT #:[id number] END OF [id number] 13:27:00 [facility] Hospitalist Progress Note REPORT#:[id number] REPORT STATUS: Signed DATE:02/05/21 TIME: 1327 PATIENT: BRYAN PARADA UNIT #: [id number] ROOM/BED: [place] [address] : 66 AGE: 55 SEX: M ATTEND: [...] 80 20 146/89 108 99 Room air 02/041 80 17 146/89 108 99 Room air [...] sounds, soft Extremities: moves all, no edema Neuro/LASTING FLOORWORKER: alert, oriented X 3, normal speech Skin: [...] 100 mg/dL) 166.8 H Laboratory Tests 02/05 403 Hematology WBC (4.5 - 11.0 x10 3/uL) [...] (Auto) (14.0 - 32.0 %) 43.2 H Desha % (Auto) (4.8 - 9.0 %) 12.0 H Eos % (Auto) (0.3 - 3.7 %) 2.3 Baso % (Auto) (0.0 - 2.0 %) 0.4 Neut # (Auto) (2.0 - 7.6 x10 3/uL) 2.19 Lymph # (Auto) (1.0 - 3.8 x10 3/uL) 2.26 Desha # (Auto) (0.1 - 0.8 x10 3/uL) [...] with patient, answered all the questions. [facility] Current Medications Current medication review: I attest that the foregoing medication list in the medical record is true, accurate, and complete to the best of my knowledge. VTE Prophylaxis VTE prophylaxis initiated: yes (Lovenox) at 1341 RPT #:[id number] END OF [id number] 08:09:00 [facility] ([facility]) Cardiology Consultation REPORT#:[id number] REPORT STATUS: Signed DATE:02/05/21 TIME: 808 PATIENT: BRYAN PARADA UNIT #: [id number] ROOM/BED: [place] [address] : 66 AGE: 55 SEX: M ATTEND: [...] and CVA in 01/21. Patient presented to [facility] [place] with complaints of chest pain. Patient states he was laying down last night when symptoms started, describes this as 10 out of 10, substernal, continuous, associated with lower extremity swelling and shortness of breath. His symptoms continued throughout the night, taking aspirin and nitro twice did not alleviate the pain. He presented to [facility] where work-up showed mildly elevated troponin at [...] 81 MG DAILY 02/05 900 PO 03/07 859 Clopidogrel Bisulfate 75 MG DAILY 02/05 900 PO 03/07 859 Furosemide 20 MG BID@0900,1700 02/05 0900 PO 03/07 859 Lisinopril 5 MG DAILY 02/05 900 PO 03/07 859 Spironolactone 25 MG DAILY 02/05 900 PO 03/07 859 Carvedilol 25 MG BID MEALS 02/06 800 PO 03/07 075 Enoxaparin Sodium 40 MG Q24H 02/04 2200 AC 02/04 SUBQ 03/06 Acetaminophen 650 MG Q4H PRN PRN 02/04 2115 PO 03/06 2114 Al Hydrox/Mg Hydrox/ 30 ML Q4H PRN PRN 02/04 2115 Simethicone PO 03/06 2114 Clonidine HCl 0.2 MG Q8H 02/04 2115 02/05 PO 03/06 2114 0502 Hydralazine HCl 10 MG Q2H PRN PRN 02/04 2115 AC IV 03/06 2114 Lactulose 20 GM Q6H PRN PRN 02/04 2115 PO 03/06 2114 Morphine Sulfate 2 MG Q4H PRN PRN 02/04 2115 AC 02/04 IV 02/09 2114 2206 Nitroglycerin 0.4 MG Q5M PRN PRN 02/04 2115 AC 02/05 SL 03/06 2114 0658 Nitroglycerin 0.4 MG Q5M PRN PRN 02/04 2115 AC SL 03/06 2114 Ondansetron HCl 4 MG Q4H PRN PRN 02/04 2115 AC 02/04 IV 03/06 Insulin Human Lispro 0 AC HS 02/04 2100 DC SUBQ 02/05 1913 [...] 70 22 139/85 103 98 02/05 0358 36.6 71 15 141/102 95 / 0201 73 15 126/79 94 94 Room [...] temperature, 2+ peripheral pulses Musculoskeletal: normal inspection Neuro/LASTING FLOORWORKER: alert, oriented X 3, normal speech Skin: [...] strongly encourage lifestyle changes at 1102 RPT #:[id number] END OF [id number] 08:09:00 [facility] ([facility]) Cardiology Consultation REPORT#:[id number] REPORT STATUS: Signed DATE:02/05/21 TIME: 808 PATIENT: BRYAN PARADA UNIT #: [id number] ROOM/BED: [place] [address] : 66 AGE: 55 SEX: M ATTEND: Precious Bae MD ADM AUTHOR: Jolene Heath PUMPER HEAD * ALL edits or amendments must be [...] and CVA in 01/21. Patient presented to [facility] with complaints of chest pain. Patient states he was laying down last night when symptoms started, describes this as 10 out of 10, substernal, continuous, associated with lower extremity swelling and shortness of breath. His symptoms continued throughout the night, taking aspirin and nitro twice did not alleviate the pain. He presented to [facility] where work-up showed mildly elevated troponin at [...] 81 MG DAILY 02/05 900 PO 03/07 859 Clopidogrel Bisulfate 75 MG DAILY 02/05 900 PO 03/07 08 Furosemide 20 MG BID@0900,1700 02/05 900 PO 03/07 08 Lisinopril 5 MG DAILY 02/05 900 PO 03/07 08 Spironolactone 25 MG DAILY 02/05 900 PO 03/07 08 Carvedilol 25 MG BID MEALS 02/06 800 PO 03/07 075 Enoxaparin Sodium 40 MG Q24H 02/04 2200 AC 02/04 SUBQ 03/06 Acetaminophen 650 MG Q4H PRN PRN 02/04 2115 PO 03/06 2114 Al Hydrox/Mg Hydrox/ 30 ML Q4H PRN PRN 02/04 2115 Simethicone PO 03/06 2114 Clonidine HCl 0.2 MG Q8H 02/04 2115 02/05 PO 03/06 2114 050 Hydralazine HCl 10 MG Q2H PRN PRN [...] 70 22 139/85 103 98 02/05 0358 36.6 71 15 141/102 95 02/05 0201 [...] temperature, 2+ peripheral pulses Musculoskeletal: normal inspection Neuro/LASTING FLOORWORKER: alert, oriented X 3, normal speech Skin: [...] lifestyle changes at 1102 at 1047 RPT #:[id number] END OF [id number] 21:11:00 [facility] ([facility]) Hospitalist History Physical REPORT#:[id number] REPORT STATUS: Signed DATE:02/04/21 TIME: 2110 PATIENT: BRYAN PARADA UNIT #: [id number] ROOM/BED: [place] [address] : 66 AGE: 55 SEX: M ATTEND: Precious Bae MD ADM AUTHOR: Precious Bae MD * ALL edits or amendments must be made on the electronic/computer document * History of Present Illness HPI Chief complaint: Transfer from [facility] for chest pain PCP: PCP: No Primary or Family Physician HPI: Patient is 55-year-old male with past medical history significant for severe systolic and diastolic CHF status post AICD, diabetes mellitus type 2, hypertension, dyslipidemia and recent cath on 12/04 suggestive of nonobstructive CAD. Patient presented to [facility] with complaints of chest pain. Patient states he was laying down last night when symptoms started, describes this as 10 out of 10, substernal, continuous, associated with swelling and shortness of breath. His symptoms continued throughout the night, taking aspirin and nitro twice did not alleviate the pain. He presented to [facility] where work-up was suggestive of mildly elevated [...] sounds, soft Extremities: moves all, no edema Neuro/LASTING FLOORWORKER: alert, oriented X 3, normal speech Skin: dry, intact Psychiatry: normal affect, normal judgment/insight Results Findings/Data: Specimen Inquiry Report [facility] CONFIDENTIAL Med.Director: Dago Barraza MD PATIENT: BRYAN PARADA LOC: [facility] U# : [id number] FD: .DNK OD: .SELF AGE/SX: 55/M ROOM: RE02/04/21 RESDR: Isac Rouse STATUS: DEP ER BED: DIS: SPEC #: [id number] JACIEL: 02/04/21 STATUS: COMP REQ # : [id number] RECD: 02/04/[address]: Isac Rouse DO ENTERED: 02/04/21-[address]: No Primary or Family Physician Afua Engle ORDERED: CBC W/O DIFF Test Result Flag Reference Verified HEMATOLOGY CBC W/O DIFF > WHITE BLOOD CELL 6.0 3.5-11.0 K/mm3 12/21-1334 > RED BLOOD CELL 5.80 4.70-6.10 M/mm3 12/21-1334 > HEMOGLOBIN 14.5 12.3-15.9 G/DL > HEMATOCRIT [...] 7.0-9.6 fL Patient: BRYAN PARADA Age/Sex: 55/M Acct#[id number] Unit#[id number] Specimen Inquiry Report [facility] Med.Director: Dago Barraza MD PATIENT: BRYAN PARADA LOC: [facility] U# : [id number] FD: .DNK OD: .SELF AGE/SX: 55/M ROOM: RE02/04/21 RESDR: Isac Rouse STATUS: DEP ER BED: DIS: SPEC #: [id number] JACIEL: 02/04/21 STATUS: COMP REQ # : [id number] RECD: 02/04/[address]: Isac Rouse DO [...] by method. Patient: BRYAN PARADA Age/Sex: 55/M Acct#[id number] Unit#[id number] Radiology data: [facility] Name: BRYAN PARADA [address] Attending Dr: [place] [address] : 1965 Age: 55 Sex: M Acct: [id number] Loc: [facility] Phone #: [phone] Exam Date: 02/04/2021 Status: [facility] ER Fax #: Radiology No: Unit No: [id number] Exams: CPT: [id number] [place] [address] EXAM: - CTA CHEST FOR PE LOCATION: [...] defibrillator PAGE 1 Signed Report Printed From [facility] (Continued) [facility] Name: BRYAN PARADA [address] Att[address] Dr: [place] [address] : 1965 Age: 55 Sex: M Acct: [id number] [facility] Phone #: [phone] Exam Date: 02/04/2021 Status: DEP ER Fax #: Radiology No: Unit No: [id number] Exams: CPT: [id number] [place] [address] <Continued> is noted with leads in appropriate [...] Luis Rogers D.O. CC: Isac DARNELL Technologist: RT Stephanie(R) Transcribed Date/Time: 02/04/2021 (1611) [employer] Maker Gift Wrapping: [email or web address] Orig Print D/T: S: 02/04/2021 (2455) PAGE 2 Signed Report Printed From [facility] [...] answered all the questions. Consultants: cardiology [facility] Current Medications Current medication review: I attest that the foregoing medication list in the medical record is true, accurate, and complete to the best of my knowledge. VTE Prophylaxis VTE prophylaxis initiated: yes (Lovenox) Heart Failure:DC on BB,LANA/ARB HF DC medications: EF: <20% LANA / ARB / ARNI at discharge: Yes Beta-Brii at discharge: Yes Specific beta brii: carvedilol at 2154 RPT #:[id number] END OF [id number] 20:10:00 [facility] ([facility]) EMERGENCY PROVIDER REPORT REPORT#:[id number] REPORT STATUS: Signed DATE:02/04/21 TIME: 2009 PATIENT: BRYAN PARADA UNIT #: [id number] ROOM/BED: [place] AGE: 55 SEX: M PCP PHYS: No [...] History - Adult Stated Complaint TRANSFER FROM [facility] Allergies Coded Allergies: No Known Allergies [...] PRN 02/04 2015 DC IV 02/05 1913 Central Nervous System Agents Sig/Mira Start time [...] 0 AC HS 02/04 2100 DC SUBQ 02/05 1913 Glucagon 1 MG ASDIR PRN [...] results, Need for admission at 0600 RPT #:[id number] END OF [id number] 15:08:00 [facility] ([facility]) EMERGENCY PROVIDER REPORT REPORT#:[id number] REPORT STATUS: Signed DATE:02/04/21 TIME:1508 PATIENT: BRYAN PARADA UNIT #: [id number] ROOM/BED: : 67 AGE: 55 SEX: M [...] Patient states in October 2020 at [facility] he did receive in the pacemaker/AED. [...] emergency room: value of the HEART score. [facility] Heart J. 2008 Marcellus:16(6):191-6. PubMed PMID: [id number]; PubMed Central PMCID: [id number]. Jose Carlos SEQUEIRA, Jag QUINONES, et al. A prospective validation of the HEART score for chest pain patients at the emergency department. Int J Cardiol. 2013 May 3:168(3):2153 -8. Doi: 10.1016/j.ijcard.2013.01.255. Epub 2012Oct 07. PubMed PMID: 80239515. Review of Systems ROS Statements All systems [...] [Embedded Image Not Available] Laboratory Tests: 02/04 170 Toxicology Urine Opiates Screen (<2000 NG/ML SCcutoff) [...] - 7.0 pH UNITS) 5.5 Ur Specific What Cheer (1.005 - 1.030 SG) 1.015 Urine Protein [...] dilated heart chambers. Impression By: [email or web address] - uLis Rogers D.O. Point of Care Testing Pulse [...] 10 MG X1ED STA 02/04 1723 DC 07/05 IV 07/ 1724 1737 Central Nervous System Agents Sig/Mira Start time Last Medication Dose Route Stop Time Status Admin Morphine Sulfate 2 MG X1ED STA 02/04 1723 DC 07/05 IV 07/ 1724 1738 Aspirin 324 MG X1ED STA 07/ 1302 DC 07/05 PO 07/ 1303 1315 Morphine Sulfate 4 MG X1ED STA 07/ 1302 DC 07/05 IV 07/ 1303 1315 [...] 40 MG X1ED STA 02/04 1522 DC 02/04 IV 02/04 1523 1540 Patient Discharge Departure [...] Delivery Room air 02/05 1916 Temp 36.9 02/04 191 Pulse 71 02/04 191 Resp 20 02/04 191 All vital signs available at the time of this entry have been reviewed. Condition Stable Clinical Impression Clinical Impression Primary Impression: Chest pain Secondary Impressions: CHF (congestive heart failure), NSTEMI (non-ST elevated myocardial infarction) Disposition Decision Transfer )( Request Time 1522 )( Request Date 02/04/21 at 1019 RPT #: [id number] END OF [id number] 15:08:00 [facility] ([facility]) EMERGENCY PROVIDER REPORT REPORT#:[id number] REPORT STATUS: Signed DATE:02/04/21 TIME:150 PATIENT: BRYAN PARADA UNIT #: [id number] ROOM/BED: : 66 AGE: 55 SEX: M PCP PHYS: DOES_NOT KNOW SERVICE AUTHOR: Afua Engle * ALL edits or amendments must be made on the electronic/computer document * Afua Engle 02/04/21 1508: HPI-Chest Pain 40 and Over Free Text HPI Notes Free Text HPI Notes 55-year-old male presents to the [facility] by EMS for chief complaint of chest pain or shortness of breath that began at 10 PM last night. Patient states he does have a history of hypertension has not taken his medications. Patient states in October 2020 at [facility] he did receive in the pacemaker/AED. [...] emergency room: value of the HEART score. Neth Heart J. 2008 Marcellus:16(6):191-6. PubMed PMID: [id number]; PubMed Central PMCID: [id number]. Jose Carlos SEQUEIRA, Jag QUINONES, et al. A prospective validation of the HEART score for chest pain patients at the emergency department. Int J Cardiol. 2013 May 3:168(3):2153 -8. Doi: 10.1016/j.ijcard.2013..255. Ep2012Oct 07. PubMed PMID: 11520145. Review of Systems ROS Statements All systems [...] 5 MG PO DAILY #30 TABS Prov: 07/07/21 CLOPIDOGREL (PLAVIX) 75 MG PO DAILY 14 [...] - 7.0 pH UNITS) 5.5 Ur Specific What Cheer (1.005 - 1.030 SG) 1.015 Urine Protein [...] Admin Enoxaparin Sodium 127.2728 MG X1ED STA 07 1510 DC 07/ SUBQ 07/ 1511 1539 Cardiovascular Drugs Sig/Mira Start time Last Medication Dose Route Stop Time Status Admin Hydralazine HCl 10 MG X1ED STA 07/ 1723 DC 07/05 IV 07/05 1724 1737 Central Nervous System Agents Sig/Mira Start time Last Medication Dose Route Stop Time Status Admin Morphine Sulfate 2 MG X1ED STA 02/04 1723 DC 07/05 IV 07/05 1724 1738 Aspirin 324 MG X1ED STA 07/ 1302 DC 07/05 PO 07/ 1303 1315 Morphine Sulfate 4 MG X1ED STA 07/ 1302 DC 07/05 IV 07/05 1303 1315 Diagnostic Agents Sig/Mira Start time Last Medication Dose Route Stop Time Status Admin Iopamidol 0 .STK-MED ONE 02/04 1523 DC 07 .ROUTE 1548 Electrolytic, Caloric, And Winston Sig/Mira Start time Last Medication Dose Route Stop Time Status Admin Sodium Chloride 100 ML .STK-MED ONE 02/04 1549 DC 07/05 IV 07/05 1550 1549 Furosemide 40 MG X1ED STA 02/04 1522 DC 07/05 IV 07/05 1523 1540 Patient Discharge Departure Vital Signs/Condition Vital Signs First Documented: Result Date Time Pulse Ox 98 / 1300 B/P 182/120 / 1300 B/P Mean 140 /05 1300 O2 Delivery Room air 02/04 1300 Temp 37.0 07/ 1300 Pulse 84 07/05 1300 Resp 18 /05 1300 Last Documented: Result Date Time Pulse Ox 96 02/05 1916 B/P 155/102 02/04 191 B/P Mean 119 / 191 O2 Delivery Room air 02/04 191 Temp 36.9 02/05 1916 Pulse 71 02/05 1916 Resp 20 02/04 191 All vital signs [...] Saw Pt Alone I have reviewed the PA/PUMPER HEAD's note and plan of care. I was available for consultation as needed at all times during the patient's visit in the emergency department. I agree with the clinical impression, plan and disposition. at 1019 RPT #: [id number] END OF [id number] 15:08:00 [facility]) EMERGENCY PROVIDER REPORT REPORT#:[id number] REPORT STATUS: Signed DATE:02/04/21 TIME:1508 PATIENT: BRYAN PARADA UNIT #: [id number] ROOM/BED: : 66 AGE: 55 SEX: M [...] Patient states in October 2020 at [facility] he did receive in the pacemaker/AED. [...] emergency room: value of the HEART score. [facility] Heart J. 2008 Marcellus:16(6):191-6. PubMed PMID: [id number]; PubMed Central PMCID: [id number]. Jose Carlos SEQUEIRA, Jag QUINONES, et al. A prospective validation of the HEART score for chest pain patients at the emergency department. Int J Cardiol. 2013 May 3:168(3):2153 -8. Doi: 10.1016/j.ijcard.2013.01.255. Epub 2012Oct 07. PubMed PMID: [id number]. Review of Systems ROS Statements All systems [...] [Embedded Image Not Available] Laboratory Tests: 02/04 170 Toxicology Urine Opiates Screen (<2000 NG/ML SCcutoff) [...] - 7.0 pH UNITS) 5.5 Ur Specific What Cheer (1.005 - 1.030 SG) 1.015 Urine Protein [...] Borderline dilated heart chambers. Impression By: [email or web address] Ye Rogers D.O. Point of Care Testing Pulse [...] X1ED STA 02/04 1723 DC 07/ IV / 1724 1737 Central Nervous System Agents Sig/Mira Start time Last Medication Dose Route Stop Time Status Admin Morphine Sulfate 2 MG X1ED STA 02/04 1723 DC 07/ IV 07/ 1724 1738 Aspirin 324 MG X1ED STA / 1302 DC 07/ PO / 1303 1315 Morphine Sulfate 4 MG X1ED STA / 1302 DC 07/05 IV 07/ 1303 1315 Diagnostic Agents Sig/Mira Start time Last Medication Dose Route Stop Time Status Admin Iopamidol 0 .STK-MED ONE 02/04 1523 DC 02/04 .ROUTE 1548 Electrolytic, Caloric, And Winston Sig/Mira Start time Last Medication Dose Route Stop Time Status Admin Sodium Chloride 100 ML .STK-MED ONE 02/04 1549 DC 07/ IV 07/ 1550 1549 Furosemide 40 MG X1ED STA 02/04 1522 DC 07/ IV 07/ 1523 1540 Patient Discharge Departure Vital Signs/Condition Vital Signs First Documented: Result Date Time Pulse Ox 98 02/04 1300 B/P 182/120 / 1300 B/P Mean 140 / 1300 O2 Delivery Room air 02/04 1300 Temp 37.0 / 1300 Pulse 84 07/ 1300 Resp 18 02/04 1300 Last Documented: Result Date Time Pulse Ox 96 02/05 1916 B/P 155/102 02/04 191 B/P Mean 119 02/05 1916 O2 Delivery Room air 02/05 1916 Temp 36.9 02/05 1916 Pulse 71 02/05 1916 Resp 20 02/05 1916 All vital signs available at the [...] Saw Pt Alone I have reviewed the PA/PUMPER HEAD's note and plan of care. I was available for consultation as needed at all times during the patient's visit in the emergency department. I agree with the clinical impression, plan and disposition. at 1019 at 1039 RPT #: [id number] END OF [id number] 12:14:00 [facility] ([facility]) Pulmonology Progress Note REPORT#:[id number] REPORT STATUS: Signed DATE:01/07/21 TIME:1214 PATIENT: BRYAN PARADA UNIT #: [id number] ROOM/BED: [place] [address] : 66 AGE: 55 SEX: M ATTEND: [...] non-tender, normal bowel sounds Genitourinary: no brown Neuro/LASTING FLOORWORKER: alert, oriented X 3 Lymphatics: no lymphadenopathy [...] on maintenance diuretics at 1233 RPT #: [id number] END OF REPORT [id number] 12:14:00 [facility] ([facility]) Pulmonology Progress Note REPORT#:[id number] REPORT STATUS: Signed DATE:01/07/21 TIME:1214 PATIENT: BRYAN PARADA UNIT #: [id number] ROOM/BED: [place] [address] : 66 AGE: 55 SEX: M ATTEND: [...] non-tender, normal bowel sounds Genitourinary: no brown Neuro/LASTING FLOORWORKER: alert, oriented X 3 Lymphatics: no lymphadenopathy [...] A P: Seen ,examined , agree with PUMPER HEAD at 1233 RPT #: [id number] END OF REPORT [id number] 12:14:00 [facility] Pulmonology Progress Note REPORT#:[id number] REPORT STATUS: Signed DATE:01/07/21 TIME:1214 PATIENT: BRYAN PARADA UNIT #: [id number] ROOM/BED: [place] [address] : 66 AGE: 55 SEX: M ATTEND: [...] non-tender, normal bowel sounds Genitourinary: no brown Neuro/LASTING FLOORWORKER: alert, oriented X 3 Lymphatics: no lymphadenopathy [...] A P: Seen ,examined , agree with PUMPER HEAD at 1233 at 2334 [facility] #: [id number] END OF REPORT [id number] 16:51:00 [facility] Neurology Progress Note REPORT#:[id number] REPORT STATUS: Signed DATE:01/06/21 TIME:165 PATIENT: BRYAN PARADA UNIT #: [id number] ROOM/BED: [place] [address] : 66 AGE: 55 SEX: M ATTEND: [...] changes. Supportive care. at 0633 RPT #: [id number] END OF REPORT [id number] 09:13:00 [facility] Hospitalist Progress Note REPORT#:[id number] REPORT STATUS: Signed DATE:01/06/21 TIME:912 PATIENT: BRYAN PARADA UNIT #: [id number] ROOM/BED: [place] [address] : 66 AGE: 55 SEX: M ATTEND: [...] 01/06 0900 90 20 149/93 115 94 /06 0800 Room air 01/06 0732 98.2 01/06 0700 83 33 161/106 128 95 01/06 0624 88 14 96 06 0600 80 15 154/94 119 94 / 0500 82 17 152/99 118 93 /06 0400 90 24 153/93 116 98 / 0339 99.0 01/06 0338 102 24 164/106 128 96 06/06 [...] of motion, no edema Musculoskeletal: decreased ROM Neuro/LASTING FLOORWORKER: left hemiparesis, alert, oriented X 3 Skin: dry, no rash Lymphatics: no lymphadenopathy Psychiatry: anxious Results Findings/Data: Laboratory Tests 01/06 01/05 01/05 01/05 0733 202 1518 1200 Chemistry Sodium (134 - 147 [...] (0.8 - 1.2 INR Unit) 1.08 PTT (Terrance) (26 - 35 SECONDS) 33.0 PT Patient/Control Mix (9.3 - 12.9 SECONDS) 12.1 Laboratory Tests 01/06 1200 Hematology WBC (3.5 - 11.0 K/mm3) [...] % (Auto) (20.5 - 51.1 %) 32.3 Desha % (Auto) (1.7 - 9.3 %) 12.0 H Eos % (Auto) (0.0 - 6.0 %) 2.7 Baso % (Auto) (0.0 - 2.0 %) 0.2 Neut # (Auto) (1.8 - 7.6 K/mm3) 2.8 Lymph # (Auto) (0.6 - 3.0 K/mm3) 1.7 Desha # (Auto) (0.2 - 1.5 K/mm3) 0.6 [...] health in AM at 1151 RPT #: [id number] END OF REPORT [id number] 11:47:00 [facility]) Hospitalist Progress Note REPORT#:[id number] REPORT STATUS: Signed DATE:01/05/21 TIME:1147 PATIENT: BRYAN PARADA UNIT #: [id number] ROOM/BED: [place] [address] : 66 AGE: 55 SEX: M ATTEND: Yared Scott MD ADM AUTHOR: Yared Scott MD * ALL edits or amendments must be made on the electronic/computer document * Subjective Chief Complaint: Feeling better No acute events Objective General VS/I O: Vital Signs: Date Time Temp Pulse Resp B/P B/P Pulse O2 O2 Flow FiO2 Mean Ox Delivery Rate 06/05 1124 103 24 177/108 136 98 06/05 [...] 06/04 2306 77 20 179/113 139 97 / 2304 77 19 170/112 134 98 / 2302 79 16 166/104 130 98 06/04 2300 76 17 172/110 137 95 06/04 9 74 22 176/110 138 96 06/04 8 74 22 177/110 138 97 06/04 6 97.7 06/04 2200 87 27 169/107 133 97 06/04 2100 83 27 168/112 135 95 06/04 2034 98.7 06/1999 82 25 156/98 121 95 06/04 1957 97 Room air 21 06 1900 83 24 130 94 06/04 1806 [...] of motion, no edema Musculoskeletal: decreased ROM Neuro/LASTING FLOORWORKER: left hemiparesis, alert, oriented X 3 Skin: [...] CT was ordered at 1151 RPT #: [id number] END OF REPORT [id number] 07:29:00 [facility] ([facility]) Neurology Progress Note REPORT#:[id number] REPORT STATUS: Signed DATE:01/05/21 TIME:728 PATIENT: SCALES,BRYAN UNIT #: [id number] ROOM/BED: [place] [address] : 66 AGE: 55 SEX: M ATTEND: [...] Resp 21 01/05 601 Temp 36.7 01/05 034 FiO2 21 01/04 1957 O2 Delivery Room [...] anticoagulation once out of the acute stage /4 improving. for anticoagulation before discharge at 0732 RPT #: [id number] END OF REPORT [id number] 10:33:856557-8887 [place] [id number] [place] [address] PATIENT NAME: BRYAN PARADA ADMIT DATE: 01/03/21 ACCOUNT NO: [id number] ROOM NO: L.ICU03 AGE: 55 REPORT TYPE: eECHOCARDIOGRAM REPORT SEX: M ADMITTING PHYSICIAN: Yared Scott MD ATTENDING PHYSICIAN: Yared Scott MD *[facility]* [address] [place], [place] [address] Transthoracic Echocardiogram Patient: Bryan Parada Study Date: 01/03/2021 BP: 160 / 98 Location: [facility] URN: [id number] : 1965 Age: 55 Height: 74 in / 188 cm Gender: M Weight: 323.4 lb / 147 kg BMI/BSA: 41.6 kg/m 2 / 2.83 m 2 *Ordering Physician: * Yared Scott *Interpreting Physician: * Anaya Nieto *Tack Puller: * Arti Woodard Indications: CVA. Study data: Transthoracic echocardiogram. Procedure: Transthoracic echocardiography was performed. Image quality was adequate. Complete 2D, complete spectral Doppler, and color Doppler. Location: Emergency department. Patient status: Inpatient. Patient room number: Trauma1. Study status: Routine. Findings Left ventricle: The cavity size is [...] cava: The vessel is normal in size. Measurements Left ventricle Value Ref YANETH, LAX [...] cm 2 --------- Pulmonic valve Value Ref MN peak v 1.39 m/sec --------- MN peak grad 8 mm Hg --------- Tricuspid [...] 100 ms --------- PATIENT NAME: BRYAN PARADA Conclusions Summary: 1. Left ventricle: The cavity [...] 10:33 at 1033 PATIENT NAME: BRYAN PARADA 10:33:00 THIS REPORT HAS BEEN APPENDED [phone] [address] PATIENT NAME: BRYAN PARADA ADMIT DATE: 01/03/21 ACCOUNT NO: [id number] ROOM NO: [place] [address] AGE: 55 REPORT TYPE: eECHOCARDIOGRAM REPORT SEX: M ADMITTING PHYSICIAN: Yared Scott MD ATTENDING PHYSICIAN: Yared Scott MD *[facility]* [address] [place] [address] Transthoracic Echocardiogram Patient: Bryan Parada Study Date: 01/03/2021 BP: 160 / 98 Location: [facility] URN: [id number] : 1965 Age: 55 Height: 74 in / 188 cm Gender: M Weight: 323.4 lb / 147 kg BMI/BSA: 41.6 kg/m 2 / 2.83 m 2 *Ordering Physician: * Yared Scott *Interpreting Physician: * Anaya Nieto *Tack Puller: * Arti Woodard Indications: CVA. Study data: Transthoracic echocardiogram. Procedure: Transthoracic echocardiography was performed. Image quality was adequate. Complete 2D, complete spectral Doppler, and color Doppler. Location: Emergency department. Patient status: Inpatient. Patient room number: Trauma1. Study status: Routine. Findings Left ventricle: The cavity size is [...] cava: The vessel is normal in size. Measurements Left ventricle Value Ref YANETH, LAX [...] cm 2 --------- Pulmonic valve Value Ref MN peak v 1.39 m/sec --------- MN peak grad 8 mm Hg --------- Tricuspid [...] PARADA A rev duration 100 ms --------- Conclusions Summary: 1. Left ventricle: The cavity [...] 1033 SECTION 2 ADDENDUM 1: 01/04/21 1035 GCD.CPS *[facility]* [address] [place], [place] [address] Transthoracic Echocardiogram (Report amended [id number]:[id number]) Patient: Bryan Parada Study Date: 01/03/2021 BP: 160 / 98 Location: [facility] URN: [id number] : 1965 Age: 55 Height: 74 in / 188 cm Gender: M Weight: 323.4 lb / 147 kg BMI/BSA: 41.6 kg/m 2 / 2.83 m 2 *Ordering Physician: * Yared Scott PATIENT NAME: BRYAN PARADA *Interpreting Physician: * Anaya Nieto *Tack Puller: * Arti Woodard Indications: CVA. Study data: Transthoracic echocardiogram. Procedure: Transthoracic echocardiography was performed. Image quality was adequate. Complete 2D, complete spectral Doppler, and color Doppler. Location: Emergency department. Patient status: Inpatient. Patient room number: Trauma1. Study status: Routine. Findings Left ventricle: The cavity size is [...] cava: The vessel is normal in size. Measurements Left ventricle Value Ref YANETH, LAX [...] cm 2 --------- Pulmonic valve Value Ref MN peak v 1.39 m/sec --------- MN peak grad 8 mm Hg --------- Tricuspid [...] Ref A rev duration 100 ms --------- Conclusions Summary: 1. Left ventricle: The cavity [...] 10:35 at 1035 PATIENT NAME: BRYAN PARADA 10:03:00 [facility] Hospitalist Progress Note REPORT#:[id number] REPORT STATUS: Signed DATE:01/04/21 TIME:1003 PATIENT: BRYAN PARADA UNIT #: [id number] ROOM/BED: ICU03-1 : 67 AGE: 55 SEX: [...] O2 Flow FiO2 Mean Ox Delivery Rate 06/04 0700 97.0 76 17 117/80 94 99 [...] 126/78 94 99 Nasal 2 cannula 06/03 2230 74 28 134/93 109 100 06/03 2215 [...] 24 hour I O ending at 0700: /04 0700 06/03 1900 Intake Total 200 200 [...] of motion, no edema Musculoskeletal: decreased ROM Neuro/LASTING FLOORWORKER: left hemiparesis, alert, oriented X 3 Skin: dry, no rash Lymphatics: no lymphadenopathy Psychiatry: anxious Results Findings/Data: Laboratory Tests 01/04 01/04 01/04 01/03 1128 0731 0429 2159 Chemistry Sodium (134 - 147 mmol/L) 142 [...] % (Auto) (20.5 - 51.1 %) 41.3 Desha % (Auto) (1.7 - 9.3 %) 11.3 H Eos % (Auto) (0.0 - 6.0 %) 2.5 Baso % (Auto) (0.0 - 2.0 %) 0.2 Neut # (Auto) (1.8 - 7.6 K/mm3) 2.2 Lymph # (Auto) (0.6 - 3.0 K/mm3) 2.0 Desha # (Auto) (0.2 - 1.5 K/mm3) 0.6 [...] at 1419 on 01/03/2021. Impression By: Nataliya - Vernon Garibay M.D. CAT SCAN - [...] By: Luzmaria Zabala M.D. Diagnosis, Assessment Plan Problem List/A P: 1. Acute CVA (cerebrovascular accident) Orders: Procedure Date/time Status EVAL PT MOD COMPLEX [id number] 01/04 1035 Active EXERCISE 15 MINUTES 01/04 1035 Active PT: POCC - PT STAFF ONLY 01/04 103 Active Telemetry Monitoring 01/04 08 Active LEVEL OF CARE 01/05 844 Active [...] than 30 minutes at 1144 RPT #: [id number] END OF REPORT [id number] 09:26:00 [facility] ([facility]) Pulmonology Progress Note REPORT#:[id number] REPORT STATUS: Signed DATE:01/04/21 TIME:925 PATIENT: BRYAN PARADA UNIT #: [id number] [address]BED: [address] : [address] AGE: 55 SEX: M [...] Result Date Time Pulse Ox 99 01/04 07 B/P 117/80 01/04 07 B/P Mean 94 01/04 700 Temp 36.1 01/04 07 Pulse 76 01/04 07 Resp 17 01/04 [...] non-tender, normal bowel sounds Genitourinary: no brown Neuro/LASTING FLOORWORKER: alert, oriented X 3 Lymphatics: no lymphadenopathy Results Findings/Data: Laboratory Tests 01/04/21428: [Embedded Image Not Available] 01/03/21 141: [Embedded Image Not Available] Laboratory Tests 01/04 [...] (9.3 - 12.9 SECONDS) 11.0 Laboratory Tests 06/04 06/03 0429 1417 Hematology WBC (3.5 - 11.0 [...] % (Auto) (20.5 - 51.1 %) 41.3 Desha % (Auto) (1.7 - 9.3 %) 11.3 H Eos % (Auto) (0.0 - 6.0 %) 2.5 Baso % (Auto) (0.0 - 2.0 %) 0.2 Neut # (Auto) (1.8 - 7.6 K/mm3) 2.2 Lymph # (Auto) (0.6 - 3.0 K/mm3) 2.0 Desha # (Auto) (0.2 - 1.5 K/mm3) 0.6 [...] D/G to IMU at 0936 RPT #: [id number] END OF REPORT [id number] 19:44:00 [facility] ([facility]) Neurology Consultation Note REPORT#:[id number] REPORT STATUS: Signed DATE:01/03/21 TIME:1943 PATIENT: BRYAN PARADA UNIT #: [id number] [address]: [address] : [address] AGE: 55 SEX: M [...] the acute stage at 1956 RPT #: [id number] END OF REPORT [id number] 16:41:00 [facility] ([facility]) Cardiology Consultation REPORT#:[id number] REPORT STATUS: Signed DATE:01/03/21 TIME:164 PATIENT: BRYAN PARADA UNIT #: [id number] ROOM/BED: [place] [address] : 66 AGE: 55 SEX: M ATTEND: [...] present Respiratory: clear to auscultation Abdomen: soft Neuro/LASTING FLOORWORKER: left hemiparesis Diagnosis, Assessment Plan Problem List/A [...] Continue medical management and Rehab at 1052 [facility] #: [id number] END OF REPORT [id number] 16:09:00 [facility] ([facility]) Pulmonary Consultation Note REPORT#:[id number] REPORT STATUS: Signed DATE:01/03/21 TIME:1609 PATIENT: BRYAN PARADA UNIT #: [id number] [address]BED: [address] : [address] AGE: 55 SEX: M [...] obesity, and recent strokes who presents to [facility] with acute onset of left-sided weakness today. Of note patient was seen last month at [facility] for TIA without any findings of [...] non-tender, normal bowel sounds Genitourinary: no brown Neuro/LASTING FLOORWORKER: alert, oriented X 3 Results Findings/Data: Laboratory [...] - 0.045 NG/ML) 0.020 Laboratory Tests 01/03 141 Coagulation INR (0.8 - 1.2 INR Unit) [...] neurology, follow-up recommendations at 1624 RPT #: [id number] END OF REPORT [id number] 16:09:00 [facility] ([facility]) Pulmonary Consultation Note REPORT#:[id number] REPORT STATUS: Signed DATE:01/03/21 TIME:1609 PATIENT: BRYAN PARADA UNIT #: [id number] [address]BED: [address] : [address] AGE: 55 SEX: M [...] obesity, and recent strokes who presents to [facility] with acute onset of left-sided weakness today. Of note patient was seen last month at [facility] for TIA without any findings of [...] Allergies: No Known Allergies (11/30/20) Free text H notes: Unemployed Lives alone Does not smoke [...] non-tender, normal bowel sounds Genitourinary: no brown Neuro/LASTING FLOORWORKER: alert, oriented X 3 Results Findings/Data: Laboratory [...] (0.8 - 1.2 INR Unit) 0.98 PTT (Pettis) (26 - 35 SECONDS) 30.0 PT Patient/Control [...] Napier PT/OT/speech/CM consulted at 1626 RPT #: [id number] END OF REPORT [id number] 16:09:00 [facility] ([facility]) Pulmonary Consultation Note REPORT#:[id number] REPORT STATUS: Signed DATE:01/03/21 TIME:1609 PATIENT: BRYAN PARADA UNIT #: [id number] ROOM/BED: [place] [address] : 66 AGE: 55 SEX: M ATTEND: [...] obesity, and recent strokes who presents to [facility] with acute onset of left-sided weakness today. Of note patient was seen last month at [facility] for TIA without any findings of [...] non-tender, normal bowel sounds Genitourinary: no brown Neuro/LASTING FLOORWORKER: alert, oriented X 3 Results Findings/Data: Laboratory [...] at 1419 on 01/03/2021. Impression By: Nataliya - Vernon Garibay M.D. CAT SCAN - [...] [place]ier PT/OT/speech/CM consulted at 1626 RPT #: [id number] END OF REPORT [id number] 15:13:[id number] [facility] [address] [place] [address] PATIENT NAME: BRYAN PARADA ADMIT DATE: 01/03/21 ACCOUNT NO: [id number] ROOM NO: L.PO8 AGE: 55 REPORT TYPE: eELECTROCARDIOGRAM SEX: M ADMITTING PHYSICIAN: Yared Scott MD ATTENDING PHYSICIAN: Yared Scott MD Order: [id number] Test Reason : (Not Selected) Test Date/Time [...] Sinus rhythm Confirmed by MD Emilia, Anaya ([id number]) on 02/04/2021 5:17:21 PM Referred By: Self Referred Confirmed by:Anaya Nieto MD at 1717 PATIENT NAME: BRYAN PARADA 15:06:00 [facility]) [place] Hospitalist History Physical REPORT#:[id number] REPORT STATUS: Signed DATE:01/03/21 TIME:1506 PATIENT: BRYAN PARADA UNIT #: [id number] ROOM/BED: ICU03-1 : 66 AGE: 55 SEX: [...] Ox 95 01/03 1845 B/P 136/91 01/03 184 B/P Mean 109 01/03 184 Pulse 72 01/03 184 Resp 17 01/03 184 Temp 36.1 01/03 1620 O2 Delivery Room air 01/03 1600 Physical Exam General appearance: obese, alert, awake Head/Eyes: atraumatic, normocephalic ENT: moist mucosal membranes Neck: supple/no meningismus Cardiovascular: normal heart sounds, regular rate rhythm Respiratory: aerating well, symmetric expansion Abdomen: soft, no distention Genitourinary: no bladder distention Rectal: deferred Extremities: decreased range of motion, no edema Musculoskeletal: decreased ROM Neuro/LASTING FLOORWORKER: left hemiparesis, alert, oriented X 3 Skin: [...] than 30 minutes at 1148 RPT #: [id number] END OF REPORT [id number] 14:09:00 [facility] ([facility]) EMERGENCY PROVIDER REPORT REPORT#:[id number] REPORT STATUS: Signed DATE:01/03/21 TIME:1409 PATIENT: BRYAN PARADA UNIT #: [id number] ROOM/BED: [place] [address] : 66 AGE: 55 SEX: M PCP [...] not touch bed (1) 1 Limb Ataxia FNF/Heel-Vides No ataxia (0) 0 Sensation (Arms/Legs/Face) No [...] Result Date Time Pulse Ox 97 01/03 1405 B/P 160/98 01/03 1405 B/P Mean 118 01/03 1405 O2 Delivery Room air 01/03 1405 Temp 36.7 01/03 1405 Pulse 80 01/03 1405 Resp 14 01/03 1405 Last Documented: Result Date Time Pulse Ox 97 01/03 1405 B/P 160/98 01/03 1405 B/P Mean 118 01/03 1405 O2 Delivery Room air 01/03 1405 Temp 36.7 01/03 1405 Pulse 80 01/03 1405 Resp 14 01/03 1405 Review of [...] (0.8 - 1.2 INR Unit) 0.98 PTT (Pettis) (26 - 35 SECONDS) 30.0 PT Patient/Control [...] at 1419 on 01/03/2021. Impression By: Nataliya - Vernon Garibay M.D. CAT SCAN - CT ANGIO HEAD 01/03 1420 Report Impression - Status: SIGNED Entered: 01/03/2021 1457 IMPRESSION: Normal head and neck CTA. Impression By: Jennifer Mayer M.D. CAT SCAN - CT ANGIO NECK 01/03 1426 Report Impression - Status: SIGNED Entered: 01/03/2021 1457 IMPRESSION: Normal head and neck CTA. Impression By: Jennifer Mayer M.D. Lab Imaging Statement Laboratory radiographic studies [...] Consultation 1 Referral/Consult Name Álvaro Becerra MD Trimming Department Blocker Called Well Tender Requested Call Time 1501 Requested Call Date 01/03/21 Call Returned Call returned Call Returned Time 1501 Call Returned Date 01/03/21 Trimming Department Blocker Will see patient, Agrees with eval, Agrees with plan Consultation 2 Referral/Consult Name ; Jennifer Hackett MD Trimming Department Blocker Called Neurology Requested Call Time 1502 Requested Call Date 01/03/21 Call Returned Call returned Call Returned Time 1502 Call Returned Date 01/03/21 Trimming Department Blocker Will see patient, Agrees with eval, Agrees with plan Patient Discharge Departure Vital Signs/Condition Vital Signs First Documented: Result Date Time Pulse Ox 97 01/03 1405 B/P 160/98 06/ 1405 B/P Mean [...] billable procedures excluded from time. at 1529 RPT #: [id number] END OF [id number] 13:03:00 [facility] ([facility]) Hospitalist Progress Note REPORT#:[id number] REPORT STATUS: Signed DATE:12/04/20 TIME: 1303 PATIENT: BRYAN PARADA UNIT #: [id number] ROOM/BED: [address] : 66 AGE: 55 SEX: M [...] LDL 138 c/w aspirin, statin Diabetes mellitus TqZ4q-1.9 c/w Sliding scale insulin hypertension stable c.w coreg and amlodipine GI and DVT prophylaxis-Lovenox Discussed with RN at 2343 RPT #:[id number] END OF [id number] 11:37:00 [facility] ([facility]) Cath Post Proc - Brief REPORT#:[id number] REPORT STATUS: Signed DATE:12/04/20 TIME: 1137 PATIENT: BRYAN PARADA UNIT #: [id number] ROOM/BED: [address]-W : 67 AGE: 54 SEX: M ATTEND: Benoit Tello MD ADM AUTHOR: Vic Louise MD * ALL edits or amendments must be made on the electronic/computer document * Pre-Procedure Presentation General Indication(s) for clinical laboratory scientist: Abnormal NMST with inferior ischemia Cath Procedure [...] (mls): 108 Performed by: Vic Louise MD Ophthalmic Aide(s): none Procedure details: The patient was brought to the cardiac catheterization laboratory in the fasting state. Detailed informed consent was obtained after discussion of the risks, benefits, and alternatives to the procedure. The patient was placed supine on the Resort Manager table and prepped and draped in usual [...] the entire procedure. I was present for lgoq-he-mecp monitoring from the initiation of sedation through [...] radial artery was accessed, and a 6 [place] slender hemostasis sheath was advanced over the guide wire into the vessel with good back bleed and flexibility. The patient was given a radial cocktail consisting of verapamil 2 mg and nitroglycerin 200 mcg intra-arterially through the sheath. Heparin 3000 units was given IV once the catheter and wire had been successfully negotiated into the ascending aorta. We then advanced a 5 [place] Islander TIG 4 diagnostic coronary catheter through the [...] Films were reviewed in real-time in the Resort Manager. We then advanced the table wire through [...] recovered for short period time on the Resort Manager table before being moved back to his [...] with me even though he lives in [place], [place]. We will utilize telehealth for follow-up [...] modification Specimens removed/altered: none at 1156 RPT #:[id number] END OF [id number] 22:52:00 [facility] ([facility]) Hospitalist Progress Note REPORT#:[id number] REPORT STATUS: Signed DATE:12/03/20 TIME: 2251 PATIENT: BRYAN PARADA UNIT #: [id number] ROOM/BED: [address] : 66 AGE: 54 SEX: M [...] 97.6 69 18 151/85 99 Room air 12/04 1205 68 18 140/92 99 Room air 12/04 1159 69 18 139/90 99 Room air 12/04 1150 97.6 69 18 144/92 97 Room air 12/04 1140 73 18 142/83 99 Room air 12/04 1135 73 18 139/91 99 Room air 12/04 1133 97.6 73 18 151/94 99 Room air 12/04 0822 97.7 72 18 145/99 114.3 98 Room air 12/04 0553 70 149/97 114.7 98 Nasal 1 cannula 12/04 0429 71 159/103 121.6 12/04 0345 69 164/119 133.9 12/04 0338 98.1 65 16 98 Room air 12/03 2313 97.9 65 16 138/83 101.4 96 Room air 12/03 1949 98.4 74 16 136/85 102.2 97 Room air 12/03 1600 98.2 74 16 154/105 121.7 96 Room air 24 hour I O ending at 0700: 12/04 0700 12/03 1900 Intake Total 300 300 Output Total [...] LDL 138 c/w aspirin, statin Diabetes mellitus PaG1g-4.9 c/w Sliding scale insulin hypertension stable c.w coreg and amlodipine GI and DVT prophylaxis-Lovenox Discussed with RN at 1303 RPT #:[id number] END OF [id number] 11:16:00 [facility] Cardiology Progress Note REPORT#:[id number] REPORT STATUS: Signed DATE:12/03/20 TIME: 1116 PATIENT: BRYAN PARADA UNIT #: [id number] [facility] AGE: 54 SEX: M ATTEND: [...] 62 1 143/92 109.1 97 Room air / 0302 97.9 68 16 151/95 113.4 99 Room air / 0014 98.1 70 16 152/95 114.0 94 Room air 05/ 1925 98.4 71 16 153/105 120.7 97 Room air / 1732 97 Room air 12/02 1528 98.1 [...] Musculoskeletal: full range of motion, normal inspection Neuro/LASTING FLOORWORKER: alert, oriented X 3 Skin: dry, intact, normal temperature Psychiatry: normal affect, normal judgment/insight, normal mood Results Findings/Data: Laboratory Tests 12/03 12/03 12/03 12/02 1448 8390 [id number] Chemistry Sodium (133 - 144 mmol/L) 139.0 [...] via right radial arterial access with 6 [place] Islander sheath and TR band for hemostasis. Minimal [...] any questions or concerns. at 1204 RPT #:[id number] END OF [id number] 05:46:[id number] [address] PATIENT NAME: BRYAN PARADA ADMIT DATE: 11/30/20 ACCOUNT NO: [id number] ROOM NO: [facility] AGE: 54 REPORT TYPE: ELECTROCARDIOGRAM SEX: M ADMITTING PHYSICIAN:Benoit Tello MD ATTENDING PHYSICIAN:Benoit Tello MD Order: [id number] Test Reason : CHEST PAIN Test Date/Time [...] MD at 0643 PATIENT NAME: BRYAN PARADA 14:04:00 [facility] ([facility]) Hospitalist Progress Note REPORT#:[id number] REPORT STATUS: Signed DATE:12/02/20 TIME: 1404 PATIENT: BRYAN PARADA UNIT #: [id number] ROOM/BED: [address] : 66 AGE: 54 SEX: M [...] 97.6 69 18 151/85 99 Room air 12/04 1205 68 18 140/92 99 Room air 12/04 1159 69 18 139/90 99 Room air 12/04 1150 97.6 69 18 144/92 97 Room air 12/04 1140 73 18 142/83 99 Room air 12/04 1135 73 18 139/91 99 Room air 12/04 1133 97.6 73 18 151/94 99 Room air 12/04 0822 97.7 72 18 145/99 114.3 98 Room air 12/04 0553 70 149/97 114.7 98 Nasal 1 cannula 12/04 0429 71 159/103 121.6 12/04 0345 69 164/119 133.9 12/04 0338 98.1 65 16 98 Room air 12/03 2313 97.9 65 16 138/83 101.4 96 Room air 12/03 1949 98.4 74 16 136/85 102.2 97 Room air 12/03 1600 98.2 74 16 154/105 121.7 96 Room air 24 hour I O ending at 0700: 12/04 0700 12/03 1900 Intake Total 300 300 Output Total [...] statin Follow with Teleneurology recommendation Diabetes mellitus XeC6f-2.9 c/w Sliding scale insulin hypertension stable c.w coreg and amlodipine GI and DVT prophylaxis-Lovenox Discussed with RN at 1259 RPT #:[id number] END OF [id number] 13:20:00 [facility] Cardiology Progress Note REPORT#:[id number] REPORT STATUS: Signed DATE:12/02/20 TIME: 1320 PATIENT: BRYAN PARADA UNIT #: [id number] ROOM/BED: [address] : 66 AGE: 54 SEX: M ATTEND: eBnoit Tello MD ADM AUTHOR: Elyse Arguello NP [...] 2+ pedal pulse Musculoskeletal: CVA tenderness (HOLLIS) Neuro/LASTING FLOORWORKER: alert, oriented X 3 Psychiatry: normal affect, [...] Echo as above NPO after midnight for [facility] in AM. Plan of care discussed with patient, nurse, and Dr. Chery. at 1332 RPT #:[id number] END OF [id number] 13:20:00 [facility] Cardiology Progress Note REPORT#:[id number] REPORT STATUS: Signed DATE:12/02/20 TIME: 1320 PATIENT: BRYAN PARADA UNIT #: [id number] [facility] AGE: 54 SEX: M ATTEND: Benoit Tello MD ADM AUTHOR: Elyse Arguello PUMPER HEAD * ALL edits or amendments must be [...] 18 127/84 98.3 96 Room air 12/01 1956 97.7 73 18 135/90 104.9 97 Room [...] 2+ pedal pulse Musculoskeletal: CVA tenderness (HOLLIS) Neuro/LASTING FLOORWORKER: alert, oriented X 3 Psychiatry: normal affect, [...] Echo as above NPO after midnight for [facility] in AM. Plan of care discussed with patient, nurse, and Dr. Chery. Prosper Chery 12/05/202047: Attestations Physician Attestation Agree w/findings plan: CARDIOLOGY ATTENDING ADDENDUM I have discussed the plan of care with the PUMPER HEAD as reflected on the chart. I verified and agree with the PUMPER HEAD's findings and plan as documented in the progress note filed in patients chart. Exceptions and clarifications have been noted above in this document. The plan was discussed with the PUMPER HEAD/PA, nursing staff and resident. Prosper Chery MD., FACP., FACC. Interventional Cardiology at 1332 RPT #:[id number] END OF [id number] 13:20:00 [facility] ([facility]) Cardiology Progress Note REPORT#:[id number] REPORT STATUS: Signed DATE:12/02/20 TIME: 1320 PATIENT: BRYAN PARADA UNIT #: [id number] ROOM/BED: [address].245-W : 67 AGE: 54 SEX: M ATTEND: Benoit Tello MD ADM AUTHOR: Elyse Arguello PUMPER HEAD * ALL edits or amendments must be [...] I O ending at 0700: 12/02 0700 05/ 1900 Intake Total Output Total Balance Number [...] 2+ pedal pulse Musculoskeletal: CVA tenderness (HOLLIS) Neuro/LASTING FLOORWORKER: alert, oriented X 3 Psychiatry: normal affect, [...] Echo as above NPO after midnight for [facility] in AM. Plan of care discussed with patient, nurse, and Dr. Chery. Prosper Chery 12/05/202047: Attestations Physician Attestation Agree w/findings plan: CARDIOLOGY ATTENDING ADDENDUM I have discussed the plan of care with the PUMPER HEAD as reflected on the chart. I verified and agree with the PUMPER HEAD's findings and plan as documented in the progress note filed in patients chart. Exceptions and clarifications have been noted above in this document. The plan was discussed with the PUMPER HEAD/PA, nursing staff and resident. Prosper Chery MD., FACP., FACC. Interventional Cardiology at 1332 at 2052 RPT #:[id number] END OF [id number] 10:40:[id number] [address] PATIENT NAME: BRYAN PARADA ADMIT DATE: 11/30/20 ACCOUNT NO: [id number] ROOM NO: [facility] AGE: 54 REPORT TYPE: eCAROTID ULTRASOUND SEX: M ADMITTING PHYSICIAN:Benoit Tello MD ATTENDING PHYSICIAN:Benoit Tello MD Name: KATHE PARADAtudy Date: 12/02/2020 10:40 AMPatient Location: [address] URN: [id number] Gender: Male : 1965 Gender: Male Age: [...] Sandoval at 1135 PATIENT NAME: BRYAN PARADA 15:18:00 [facility] REPORT#:[id number] REPORT STATUS: Signed DATE:12/01/20 TIME: 1518 PATIENT: BRYAN PARADA UNIT #: [id number] ROOM/BED: [address] : 66 AGE: 54 SEX: M [...] Present on admission Chronic, systolic Diabetes mellitus VgU9d-4.9 c/w Sliding scale insulin hypertension stable c.w coreg and amlodipine GI and DVT prophylaxis-SCDs; start on Lovenox Discussed with RN at 1404 RPT #:[id number] END OF [id number] 10:02:00 [facility] ([facility]) Clinical Note REPORT#:[id number] REPORT STATUS: Signed DATE:12/01/20 TIME: 1002 PATIENT: BRYAN PARADA UNIT #: [id number] ROOM/BED: [address] : 66 AGE: 54 SEX: M ATTEND: Benoit Tello MD ADM AUTHOR: Cm Grullon MD * ALL edits or amendments must be made on the electronic/computer document * Clinical Note Note: Neurology Spoke w PCP OT PT to see prior to DC = safety eval. at 1003 RPT #:[id number] END OF [id number] 09:26:00 [facility] ([facility]) Telemed Neuro Consult Note REPORT#:[id number] REPORT STATUS: Signed DATE:12/01/20 TIME: 09 PATIENT: BRYAN PARADA UNIT #: [id number] ROOM/BED: [address] : 66 AGE: 54 SEX: M [...] in left hemiparesis 3-4 months ago at [facility]. Pt with risks of HTN, obesity, DM. [...] Result Date Time Pulse Ox 98 12/01 822 B/P 140/95 12/01 822 B/P Mean 110.0 12/01 822 O2 Delivery Room air 12/01 822 Temp 97.9 12/01 822 Pulse 74 12/01 822 Resp 18 12/01 822 General appearance: alert, awake, oriented Neuro comment: [...] set complete DVT prophylaxis at 0935 RPT #:[id number] END OF [id number] 18:09:00 [facility] ([facility]) Hospitalist Progress Note REPORT#:[id number] REPORT STATUS: Signed DATE:11/30/20 TIME: 1808 PATIENT: BRYAN PARADA UNIT #: [id number] ROOM/BED: [facility]-W : 66 AGE: 54 SEX: M ATTEND: [...] Present on admission Chronic, systolic Diabetes mellitus VwE1u-7.9 c/w Sliding scale insulin hypertension stable c.w coreg and amlodipine GI and DVT prophylaxis-SCDs; will avoid chemical anticoagulation to prevent hemorrhagic transformation Discussed with RN at 1518 RPT #:[id number] END OF [id number] 17:16:00 [facility] ([facility]) Cardiology Consultation REPORT#:[id number] REPORT STATUS: Signed DATE:11/30/20 TIME: 1715 PATIENT: BRYAN PARADA UNIT #: [id number] ROOM/BED: [address] : 66 AGE: 54 SEX: M ATTEND: Benoit Tello MD ADM AUTHOR: Alexa Montelongo INBOUND CALL CENTER AGENT,REGIONAL ENGINEER,FORMSTONE FITTER * ALL edits or amendments must be made on the electronic/computer document * Alexa Montelongo 11/30/201715: History of Present Illness HPI Requesting Clinician: Elisha Reason for consult: Chest Pain Free Text HPI Notes Free Text HPI Notes: Mr. Parada is an AAM w/ PMH CAD (Hx PCI w/ stents), HTN, HFrEF (Biotronic AICD /PPM 08/02/2020), who presented to an ED in [place], [place] w/ chest pain, H/A, acute onset left sided weakness; was later transfered to [facility] for further evaluation. Pt describes left [...] therapy in oates today. Pt lives in [place], [place] and sees reservation manager Dr. Ulloa from [facility]. History - Adult longitudinal Smoking status: Smoking [...] 16 137/90 105.5 97 Room air 11/29 2003 97.5 76 16 151/95 113.5 97 Room [...] 2+ pedal pulse Musculoskeletal: HOLLIS x 4 Neuro/LASTING FLOORWORKER: alert, oriented X 3, normal speech Skin: [...] % (Auto) (14.1 - 45.4 %) 40.3 Desha % (Auto) (2.5 - 11.7 %) 10.0 Eos % (Auto) (0.0 - 6.2 %) 1.6 Baso % (Auto) (0.0 - 2.6 %) 0.2 Gran # (2.0 - 13.7 k/mm3) 2.39 Lymph # (Auto) (0.6 - 3.8 K/mm3) 2.02 Desha # (Auto) (0.11 - 0.59 K/mm3) 0.50 [...] the findings and plan as documented by PTej MONTELONGO APRN pt with extensive cardiac history, has f/u at [facility] plan for device check, echo, sttress test. at 0244 RPT #:[id number] END OF [id number] 17:16:00 [facility] ([facility]) Cardiology Consultation REPORT#:[id number] REPORT STATUS: Signed DATE:11/30/20 TIME: 1715 PATIENT: BRYAN PARADA UNIT #: [id number] ROOM/BED: [address] : 66 AGE: 54 SEX: M ATTEND: Benoit Tello MD ADM AUTHOR: Alexa Montelongo APRN,KIKO,SIVAN * ALL edits or amendments must be made on the electronic/computer document * Alexa Montelongo 11/30/201715: History of Present Illness HPI Requesting Clinician: Elisha Reason for consult: Chest Pain Free Text HPI Notes Free Text HPI Notes: Mr. Parada is an AAM w/ PMH CAD (Hx PCI w/ stents), HTN, HFrEF (Biotronic AICD /PPM 08/02/2020), who presented to an ED in [place], [place] w/ chest pain, H/A, acute onset left sided weakness; was later transfered to [facility] for further evaluation. Pt describes left parasternal [...] therapy in oates today. Pt lives in [place], [place] and sees reservation manager Dr. Ulloa from [facility]. History - Adult longitudinal Smoking status: Smoking [...] 2+ pedal pulse Musculoskeletal: HOLLIS x 4 Neuro/LASTING FLOORWORKER: alert, oriented X 3, normal speech Skin: [...] Index/DL) 1 NORMAL <10 MG Laboratory Tests 11/304 Hematology WBC (4.1 - 12.1 K/mm3) 5.0 [...] % (Auto) (14.1 - 45.4 %) 40.3 Desha % (Auto) (2.5 - 11.7 %) 10.0 Eos % (Auto) (0.0 - 6.2 %) 1.6 Baso % (Auto) (0.0 - 2.6 %) 0.2 Gran # (2.0 - 13.7 k/mm3) 2.39 Lymph # (Auto) (0.6 - 3.8 K/mm3) 2.02 Desha # (Auto) (0.11 - 0.59 K/mm3) 0.50 Eos # (Auto) (0.0 - 0.4 K/mm3) 0.08 Baso # (Auto) (0.0 - 0.1 K/mm3) 0.01 Immature Gran % (0.0 - 2.0 %) 0.2 Nucleated RBC % (0.0 - 1.0 /100WBC%) 0.0 Nucleated RBCs # (0.00 - 0.05 K/mm3) 0.00 Laboratory Tests 11/29 175 Serology SARS-CoV-2 Ag (Rapid) (Neg) Negative Laboratory Tests 11/30 11/29 11/29 1314 6566 1916 Chemistry Magnesium (1.6 - 2.6 MG/DL) 2.2 CK-MB (CK-2) (1.0 - 3.6 NG/ML) 1.4 1.6 Troponin I (0.000 - 0.045 NG/ML) 0.025 0.026 Radiology Data: Recent Impressions: CAT SCAN - CT ANGIO NECK 11/29 1625 Report Impression - Status: SIGNED Entered: 11/29/2020 1711 IMPRESSION: Very limited exam due to poor timing of the contrast bolus. The CT portion of the neck is essentially nondiagnostic. Probably no significant carotid stenosis. CTA head is limited. No definite occlusion or aneurysm. Impression By: John Moran MD CAT SCAN - CT ANGIO HEAD 11/29 1625 Report Impression - Status: SIGNED Entered: 11/29/2020 [...] the findings and plan as documented by Arainna MONTELONGO APRN pt with extensive cardiac history, has f/u at [facility] plan for device check, echo, sttress test. at 0244 at 1841 RPT #:[id number] END OF [id number] 17:16:00 [facility] ([facility]) Cardiology Consultation REPORT#:[id number] REPORT STATUS: Signed DATE:11/30/20 TIME: 1715 PATIENT: BRYAN PARADA UNIT #: [id number] ROOM/BED: [address] : 66 AGE: 54 SEX: M ATTEND: Benoit Tello MD ADM AUTHOR: Alexa Montelongo APRN,REGIONAL ENGINEER,FORMSTONE FITTER * ALL edits or amendments must be made on the electronic/computer document * History of Present Illness HPI Requesting Clinician: Elisha Reason for consult: Chest Pain Free Text HPI Notes Free Text HPI Notes: Mr. Parada is an AAM w/ PMH CAD (Hx PCI w/ stents), HTN, HFrEF (Biotronic AICD /PPM 08/02/2020), who presented to an ED in [place], [place] w/ chest pain, H/A, acute onset left sided weakness; was later transfered to [facility] for further evaluation. Pt describes left parasternal [...] therapy in oates today. Pt lives in [place], [place] and sees reservation manager Dr. Ulloa from [facility]. History - Adult longitudinal Smoking status: Smoking [...] 2+ pedal pulse Musculoskeletal: HOLLIS x 4 Neuro/LASTING FLOORWORKER: alert, oriented X 3, normal speech Skin: dry, normal temperature Psychiatry: normal affect, normal judgment/insight, normal mood, no hallucinations Results Findings/Data: Laboratory Tests 11/30 11/30 11/30 11/30 1641 1218 0732 0354 Chemistry POC Glucose (70 - 119 MG/DL) 103 121 H 96 Hemoglobin A1c (4.5 - 5.6 % IS-A1C) 5.9 H 11/30 11/29 11/29 11/29 0354 2332 9233 1916 Chemistry Sodium (133 - 144 mmol/L) [...] % (Auto) (14.1 - 45.4 %) 40.3 Desha % (Auto) (2.5 - 11.7 %) 10.0 Eos % (Auto) (0.0 - 6.2 %) 1.6 Baso % (Auto) (0.0 - 2.6 %) 0.2 Gran # (2.0 - 13.7 k/mm3) 2.39 Lymph # (Auto) (0.6 - 3.8 K/mm3) 2.02 Desha # (Auto) (0.11 - 0.59 K/mm3) 0.50 [...] of MR. Parada' care. at 0244 RPT #:[id number] END OF [id number] 08:24:[id number] [address] PATIENT NAME: BRYAN PARADA ADMIT DATE: 11/30/20 ACCOUNT NO: [id number] ROOM NO: [facility] AGE: 54 REPORT TYPE: eECHOCARDIOGRAM REPORT SEX: M ADMITTING PHYSICIAN:Benoit Tello MD ATTENDING PHYSICIAN:Benoit Tello MD Name: KATHE PARADAtudy Date: 11/30/2020 08:24 AMPatient Location: [facility] [address] URN: [id number] BP: 145/92 mmHg : 75 in Gender: [...] Hull at 1758 PATIENT NAME: BRYAN PARADA 19:27:00 [facility] ([facility] Hospitalist History Physical REPORT#:[id number] REPORT STATUS: Signed DATE:11/29/20 TIME: 1926 PATIENT: BRYAN PARADA UNIT #: [id number] ROOM/BED: [address] : 66 AGE: 54 SEX: M ATTEND: Benoit Tello MD ADM AUTHOR: Benoit Tello MD * ALL edits or amendments must be made on the electronic/computer document * History of Present Illness HPI Chief complaint: Transferred from [facility] in [place] for evaluation of CVA HPI: Patient is [...] Pulse Ox 97 11/29 2358 B/P 137/90 11/299 B/P Mean 105.5 11/29 2359 O2 Delivery Room air 11/29 2358 Temp 97.7 11/29 2358 Pulse 67 11/29 235 Resp 16 11/29 2358 24 hour I [...] transformation Discussed with RN at 1809 RPT #:[id number] END OF [id number] 15:42:00 [facility] ([facility]) EMERGENCY PROVIDER REPORT REPORT#:[id number] REPORT STATUS: Signed DATE:11/29/20 TIME: 1542 PATIENT: BRYAN PARADA UNIT #: [id number] ROOM/BED: AGE: 54 SEX: M PCP PHYS: [...] 99 On: Room air Interpretation Interpreted by sc Time 1545 Re-Evaluation MDM Free Text MDM [...] Hydralazine HCl 10 MG X1ED STA 11/29 1718 DC 11/29 IV 11/29 1720 1733 Diagnostic Agents Sig/Mira Start time Last Medication Dose Route Stop Time Status Admin Iopamidol 100 ML .STK-MED ONE 11/29 1717 DC 11/29 IV 11/29 1718 1718 Patient Discharge Departure Vital Signs/Condition Vital [...] )( Admission Accepts Yes )( Accepted Time 1732 )( Accepted Date 11/29/20 Discharge/Care Plan Counseled [...] over this patient's care. at 1738 RPT #:[id number] END OF [id number] 09:43:00 [facility] ([facility]) EMERGENCY PROVIDER REPORT REPORT#:[id number] REPORT STATUS: Signed DATE:11/29/20 TIME:942 PATIENT: BRYAN PARADA UNIT #: [id number] ROOM/BED: : 66 AGE: 54 SEX: M [...] not touch bed (1) 1 Limb Ataxia FNF/Heel-Vides No ataxia (0) 0 Sensation (Arms/Legs/Face) No [...] Pulse Ox 98 11/29 0940 B/P 182/125 11/30 939 B/P Mean 144 11/30 939 O2 Delivery Room air 11/30 939 Temp 98.5 11/30 939 Pulse 79 11/29 0940 Resp 19 11/30 939 Last Documented: Result Date Time Pulse Ox 94 11/29 1345 B/P 161/111 11/29 134 B/P Mean 127 11/29 134 O2 Delivery Room air 11/29 1344 Temp 98.2 11/29 1344 Pulse 75 11/29 134 Resp 18 11/29 1344 Review of Vital Signs Reviewed Basic Physical [...] of motion, No swelling Text/Dict Notes Decreased spare fixer strength in left upper extremity MS Lower Extrem Lower Ext/Pelvis/MS Atraumatic, Inspection NL, Full range of motion, No erythema Skin Skin Atraumatic, Color NL, Warm, Dry, Intact Neurologic Neurologic Oriented X3, Speech NL Text/Dict Notes Decreased strength in the left leg, decreased spare fixer strength in left arm, left- sided facial droop Interpretation Diagnostics Lab Results Interpretation Results Laboratory Tests 11/29/20 09: [Embedded Image Not Available] Laboratory Tests: 11/29 [...] % (Auto) (20.5 - 51.1 %) 42.5 Desha % (Auto) (1.7 - 9.3 %) 10.3 H Eos % (Auto) (0.0 - 6.0 %) 2.1 Baso % (Auto) (0.0 - 2.0 %) 0.4 Neut # (Auto) (1.8 - 7.6 K/mm3) 2.4 Lymph # (Auto) (0.6 - 3.0 K/mm3) 2.3 Desha # (Auto) (0.2 - 1.5 K/mm3) 0.6 [...] dissection or aneurysm. Mild cardiomegaly. Impression By: Michael Lake M.D. CAT SCAN - CT CHEST W/CONTRAST 11/29 1046 Report Impression - Status: SIGNED Entered: 11/29/2020 1123 IMPRESSION: No aortic dissection or aneurysm. Mild cardiomegaly. Impression By: Michael Lake M.D. RADIOLOGY - XR CHEST 1 V 11/29 1100 Report Impression - Status: SIGNED Entered: 11/29/2020 1152 IMPRESSION: No focal consolidation. Impression By: [email or web address] - Victor Manuel Jane M.D. ECG #1 Interpretation ECG Documented in MUSE Yes Date 11/29/20 Time 0935 Interpreted by ED physician NL ECG Interpretation Normal rate, No acute ischemic [...] 1243 Spoke with: Emergency physician [facility] Transfer Accepted Yes Accepted by: Dr. [place] )( Acceptance Time 1243 )( Acceptance Date 11/29/20 Transfer Reason Capacity Patient Status Stable for transfer Patient Informed Yes Consent Obtained yes Consent Signed by: patient at 0702 RPT #: [id number] END OF [facility]
[2024-10-09 14:47] LABS: Absolute Eosinophils 0.1 K/uL (0-0.5); Absolute Lymphocytes (CBC) 1.8 K/uL (0.7-4.9); Absolute Monocytes 0.5 K/uL (0.1-1.3); Absolute Neutrophil 1.7 K/uL (1.8-8.0); Basophils % 0.8 % (0-1.3); Eosinophils % 1.4 % (0-4.4); Hematocrit 46.3 % (39.6-49.0); MCH 26.4 pg (27.0-35.0); MCHC 32.3 g/dL (32.0-36.0); MCV 81.6 fL (80-100); MPV 8.9 fL (7.6-11.3); Monocytes % 12.1 % (3.3-12.3); Neutrophils % 41.7 % (41.7-73.7); Nucleated Red Blood Cells % 0.1 % (0-0); Platelets 175 thou/uL (152-406); RBC Red Blood Cell Count 5.67 M/uL (4.33-5.43); Red Cell Distribution Width 20.5 % (12.1-15.2)
[2024-10-09 14:54] LABS: PT Prothrombin Time 11.9 SECONDS (10-13.0); Protime INR 1.05
[2024-10-09] MEDS ORDERED: FENTANYL CITR 100 MCG/2 ML ONE (14:57)
[2024-10-09] MEDS ORDERED: ONDANSETRON 4 MG/2 ML VIAL ONE (14:57)
[2024-10-09] MEDS ORDERED: FAMOTIDINE 20 MG/2 ML VIAL IV ONE (14:58)
[2024-10-09 15:06] LABS: Albumin 3.5 g/dL (3.4-5.0); Albumin/Globulin Ratio 0.9 (1.1-1.8); Anion Gap 10.5 mEq/L (5.0-15.0); Bilirubin Direct 0.3 mg/dL (0-0.2); Bilirubin Indirect, Calculated 0.8 mg/dL (0.2-0.8); Bilirubin Total 1.1 mg/dL (0.2-1.0); Globulin 4.1 g/dL (2.3-3.5); Magnesium 2.1 mg/dL (1.6-2.4); Potassium 3.5 mEq/L (3.5-5.1); Protein, Total 7.6 g/dL (6.4-8.2)
--- NOTE | 2024-10-09 15:10 | RAD REPORT ---
Procedure: Chest Single View HISTORY: Chest pain COMPARISON: 2021 FINDINGS: The lungs appear clear of acute infiltrate. No significant pleural effusion noted. The heart is markedly enlarged. Defibrillator in place. IMPRESSION: No acute abnormality is displayed.
[2024-10-09 15:24] LABS: Troponin High Sensitivity 65.1 pg/mL (<58.9)
[2024-10-09 15:43] LABS: Blood Morphology Comment NOTED (NOT SEEN); White Blood Cell Scan OK (OK)
[2024-10-09 15:44] LABS: Anisocytosis 1+; Microcytosis 1+; Platelet Estimate ADEQ
[2024-10-09] MEDS ORDERED: ASPIRIN 81 MG CHEWABLE TABLET ONE (16:07)
--- NOTE | 2024-10-09 16:38 | ER ---
Nurse's Notes [facility] Name: Bryan Watts Age: 58 yrs Sex: Male : 1965 Arrival Date: 10/09/2024 Time: 13:51 Bed 16 Private MD: Diagnosis: Angina pectoris, unspecified Presentation: 10/09 13:55 Chief complaint: Patient states: CHEST PAIN WITH SOB STARTED YESTERDAY STEADILY db INCREASING. STATES WHILE SLEEPING KEPT WAKING UP BECAUSE "HAVE TO CATCH MY BREATH". PT SOB WHILE RESTING. Coronavirus screen: Client denies travel out of the [place] in the last 14 days. At this time, the client does not indicate any symptoms associated with coronavirus-19. Ebola Screen: Patient negative for fever greater than or equal to 101.5 degrees Fahrenheit, and additional compatible Ebola Virus Disease symptoms Patient denies exposure to infectious person. Patient denies travel to an Ebola-affected area in the 21 days before illness onset. No symptoms or risks identified at this time. Initial Sepsis Screen: Does the patient meet any 2 criteria? No. Patient's initial sepsis screen is negative. Does the patient have a suspected source of infection? No. Patient's initial sepsis screen is negative. Risk Assessment: Do you want to hurt yourself or someone else? Patient reports no desire to harm self or others. Onset of symptoms was October 09, 2024. 13:55 Method Of Arrival: Ambulatory db 13:55 Acuity: GABBY 2 db Triage Assessment: 14:03 General: Appears in no apparent distress. uncomfortable, Behavior is calm, cooperative. db Pain: Complains of pain in chest. Neuro: Level of Consciousness is awake, alert, obeys commands, Oriented to person, place, time, situation. Cardiovascular: Reports chest pain, shortness of breath. Respiratory: Airway is patent Respiratory effort is even, unlabored, Respiratory pattern is regular, symmetrical. Historical: - Allergies: 14:03 Isosorbide Dinitrate; db - PMHx: 14:03 Congestive heart failure; Diabetes - IDDM; cardiomyopathy; Hypertension; db Hyperlipidemia; kidney disease; - PSHx: 14:03 Pace maker; db - Immunization history:: Adult Immunizations unknown. - Infectious Disease History:: Denies. - Social history:: Smoking status: Patient denies any tobacco usage or history of. Screenin:15 [facility] ED Fall Risk Assessment (Adult) History of falling in the last 3 months, kj2 including since admission No falls in past 3 months (0 pts) Confusion or Disorientation No (0 pts) Intoxicated or Sedated No (0 pts) Impaired Gait No (0 pts) Mobility Assist Device Used No (0 pt) Altered Elimination No (0 pt) Score/Fall Risk Level 0 - 2 = Low Risk Maintained a safe environment, Hourly rounding (assess needs \\T\\ fall precautionary measures) done. Abuse screen: Denies threats or abuse. Denies injuries from another. Nutritional screening: No deficits noted. Tuberculosis screening: No symptoms or risk factors identified. Assessment: 14:15 General: Appears in no apparent distress. Behavior is calm, cooperative. Pain: kj2 Complains of pain in chest Pain does not radiate. Pain currently is 5 out of 10 on a pain scale. Pain began 1 day ago. Neuro: Level of Consciousness is awake, alert, obeys commands, Oriented to person, place, time, situation. Cardiovascular: Patient's skin is warm and dry. Respiratory: Reports shortness of breath at rest. GI: No signs and/or symptoms were reported involving the gastrointestinal system. : No signs and/or symptoms were reported regarding the genitourinary system. 15:13 Reassessment: Patient appears in no apparent distress at this time. Patient and/or kj2 family updated on plan of care and expected duration. Pain level reassessed. Patient is alert, oriented x 3, equal unlabored respirations, skin warm/dry/pink. 16:15 Reassessment: Patient appears in no apparent distress at this time. Patient and/or kj2 family updated on plan of care and expected duration. Pain level reassessed. Patient is alert, oriented x 3, equal unlabored respirations, skin warm/dry/pink. 17:14 Reassessment: Patient appears in no apparent distress at this time. Patient and/or kj2 family updated on plan of care and expected duration. Pain level reassessed. Patient is alert, oriented x 3, equal unlabored respirations, skin warm/dry/pink. Vital Signs: 13:55 BP 119 / 107; Pulse 97; Resp 28; Temp 97.9(O); Pulse Ox 98% ; Weight 131.09 kg; Height db 6 ft. 2 in. ; 15:13 BP 128 / 86; Pulse 90; Resp 20; Pulse Ox 100% ; kj2 16:12 BP 119 / 87; Pulse 79; Resp 18; Pulse Ox 100% on R/A; kj2 17:14 BP 136 / 94; Pulse 79; Resp 20; Pulse Ox 98% ; kj2 13:55 Body Mass Index 37.11 (131.09 kg, 187.96 cm) db ED Course: 13:55 Patient arrived in ED. db 13:56 Jamil Carter PA is PHCP. cp 13:56 Jamil Parish MD is Attending Physician. cp 14:03 Triage completed. db 14:03 Arm band placed on Patient placed in an exam room. db 14:08 EKG done, by ED staff, reviewed by Jamil DARNELL. ty 14:17 Lynn Gama, SAMUEL is Primary Nurse. kj2 14:20 Patient has correct armband on for positive identification. Bed in low position. Call kj2 light in reach. Provided Education on: call light. 14:30 Client placed on continuous cardiac and pulse oximetry monitoring. NIBP monitoring kj2 applied. gambling monitor on. Pulse ox on. NIBP on. 14:30 Inserted saline lock: 22 gauge in right antecubital area, using aseptic technique. kj2 Blood collected. Flushed with 10 mL NS. 14:30 Patient maintains SpO2 saturation greater than 95% on room air. kj2 15:00 XRAY Chest (1 view) In Process Unspecified. EDMS 15:15 No provider procedures requiring assistance completed. kj2 16:37 Izaiah Cardona is Hospitalizing Provider. cp 21:06 Patient admitted, IV remains in place. kj2 Administered Medications: 15:06 Drug: fentaNYL (PF) IVP 50 mcg IVP once Route: IVP; Site: right antecubital; kj2 17:39 Follow up: Response: No adverse reaction kj2 15:07 Drug: Famotidine IVP 20 mg IVP once; dilute with 10 mL 0.9% NaCl; give over 2 minutes kj2 Route: IVP; Site: right antecubital; 17:39 Follow up: Response: No adverse reaction kj2 15:07 Drug: Ondansetron IVP 4 mg IVP once; over 2 minutes Route: IVP; Site: right antecubital;kj2 17:39 Follow up: Response: No adverse reaction kj2 16:11 Drug: Aspirin PO Chewable Tablet 324 mg PO once; 81 mg tablets x 4 Route: PO; kj2 17:40 Follow up: Response: No adverse reaction kj2 17:38 Drug: Enoxaparin Sub-Q 1 mg/kg Sub-Q once Route: Sub-Q; Site: abdomen; kj2 19:17 Follow up: Response: No adverse reaction kj2 17:38 Drug: morphine IVP or IV 4 mg IVP once over 4 mins Route: IVP; Infused Over: 4 mins; kj2 Site: right antecubital; 19:28 Follow up: Response: No adverse reaction kj2 Medication: 15:14 VIS not applicable for this client. kj2 Outcome: 16:38 Decision to Hospitalize by Provider. cp 21:06 Admitted to Med/surg accompanied by tech, via wheelchair, kj2 21:06 Condition: stable 21:06 Instructed on the need for admit, 21:07 Patient left the ED. kj2 Signatures: Dispatcher [employer] EDTN Jamil Carter PA PA cp Benton, Danielle, RN RN Steffen Palmer Krystal, RN RN kj2
--- NOTE | 2024-10-09 16:39 | EDPHYS ---
Physician Documentation [facility] Name: Bryan Watts Age: 58 yrs Sex: Male : 1965 Arrival Date: 10/09/2024 Time: 13:51 Bed 16 Private MD: ED Physician Jamil Parish HPI: 10/09 14:15 This 58 yrs old Black Male presents to ER via Ambulatory with complaints of Chest Pain. cp Historical: - Allergies: 14:03 Isosorbide Dinitrate; db - PMHx: 14:03 Congestive heart failure; Diabetes - IDDM; cardiomyopathy; Hypertension; db Hyperlipidemia; kidney disease; - PSHx: 14:03 Pace maker; db - Immunization history:: Adult Immunizations unknown. - Infectious Disease History:: Denies. - Social history:: Smoking status: Patient denies any tobacco usage or history of. ROS: 14:20 Constitutional: Negative for body aches, chills, fever, poor PO intake, cp 14:20 Eyes: Negative for injury, pain, redness, and discharge, cp 14:20 Cardiovascular: Positive for chest pain, Negative for edema, palpitations, 14:20 Respiratory: Positive for shortness of breath, at rest. Negative for cough, wheezing, 14:20 Abdomen/GI: Negative for abdominal pain, nausea, vomiting, and diarrhea, 14:20 Back: Negative for radiated pain, Exam: 14:25 Constitutional: The patient appears in no acute distress, alert, awake, cp non-diaphoretic, non-toxic, well developed, well nourished, obese, uncomfortable, 14:25 Head/Face: Normocephalic, atraumatic. cp 14:25 Eyes: Periorbital structures: appear normal, Conjunctiva: normal, no exudate, no injection, Sclera: no appreciated abnormality, Lids and lashes: appear normal, bilaterally, 14:25 ENT: External ear(s): are unremarkable, Nose: is normal, Mouth: Lips: moist, Oral mucosa: pink and intact, moist, Posterior pharynx: Airway: no evidence of obstruction, patent, 14:25 Neck: ROM/movement: is normal, is supple, without pain, no range of motions limitations, 14:25 Chest/axilla: Inspection: normal, 14:25 Cardiovascular: Rate: normal, Rhythm: regular, Edema: is not appreciated, JVD: is not appreciated, 14:25 Respiratory: the patient does not display signs of respiratory distress, Respirations: normal, no use of accessory muscles, no retractions, labored breathing, is not present, Breath sounds: decreased breath sounds, are not appreciated, wheezing: is not appreciated, 14:25 Abdomen/GI: Inspection: abdomen appears normal, Palpation: abdomen is soft and non-tender, in all quadrants, 14:25 Back: pain, is absent, ROM is normal, 14:25 Neuro: Orientation: to person, place \T\ time. Mentation: is normal, Motor: moves all fours, strength is normal, Sensation: no obvious gross deficits, Vital Signs: 13:55 BP 119 / 107; Pulse 97; Resp 28; Temp 97.9(O); Pulse Ox 98% ; Weight 131.09 kg; Height db 6 ft. 2 in. ; 15:13 BP 128 / 86; Pulse 90; Resp 20; Pulse Ox 100% ; kj2 16:12 BP 119 / 87; Pulse 79; Resp 18; Pulse Ox 100% on R/A; kj2 17:14 BP 136 / 94; Pulse 79; Resp 20; Pulse Ox 98% ; kj2 13:55 Body Mass Index 37.11 (131.09 kg, 187.96 cm) db MDM: 13:56 Medical Screening Exam initiated cp / 14:05 Order name: Basic Metabolic Panel; Complete Time: 15:59 03/ 15:59 Interpretation: Normal except: BUN 19; CRE 1.67; GFR 47. / 14:05 Order name: CBC with Diff; Complete Time: 15:59 cp 03/ 15:59 Interpretation: Normal except: WBC 4.10; RBC 5.67; MCH 26.4; RDW 20.5; NEUT A 1.7. / 14:05 Order name: LFT's; Complete Time: 15:59 cp 03/ 15:59 Interpretation: Normal except: BILIT 1.1; BILID 0.3; GLOB 4.1; A/G 0.9. cp 03/ 14:05 Order name: Magnesium; Complete Time: 15:59 cp / 14:05 Order name: NT PRO-BNP; Complete Time: 15:59 cp 03/ 15:59 Interpretation: Abnormal: NT PRO-BNP 2836. cp 10/09 14:05 Order name: PT-INR; Complete Time: 15:59 cp 10/09 14:05 Order name: Troponin HS; Complete Time: 15:59 cp 10/09 16:00 Interpretation: Abnormal: Troponin HS 65.1. cp 10/09 14:54 Order name: CBC Smear Scan; Complete Time: 15:59 EDMS 10/09 17:40 Order name: T4 Free EDMS 10/09 17:40 Order name: Thyroid Stimulating Hormone EDMS 10/09 17:40 Order name: Basic Metabolic Panel EDMS 10/09 17:40 Order name: Basic Metabolic Panel EDMS 10/09 17:40 Order name: Basic Metabolic Panel EDMS 10/09 17:40 Order name: Basic Metabolic Panel EDMS 10/09 17:40 Order name: Basic Metabolic Panel EDMS 10/09 17:40 Order name: Basic Metabolic Panel EDMS 10/09 17:40 Order name: CBC with Automated Diff EDMS 10/09 17:40 Order name: CBC with Automated Diff EDMS 10/09 17:40 Order name: CBC with Automated Diff EDMS 10/09 17:40 Order name: CBC with Automated Diff EDMS 10/09 17:40 Order name: CBC with Automated Diff EDMS 10/09 17:40 Order name: CBC with Automated Diff EDMS 10/09 17:40 Order name: Creatine Phosphokinase EDMS 10/09 17:40 Order name: Creatine Phosphokinase EDMS 10/09 17:40 Order name: Creatine Phosphokinase EDMS 10/09 17:40 Order name: Hemoglobin A1c EDMS 10/09 17:40 Order name: Hemoglobin A1c EDMS 10/09 17:40 Order name: Lipid Profile EDMS 10/09 17:40 Order name: Lipid Profile EDMS 10/09 17:40 Order name: Magnesium EDMS 10/09 17:40 Order name: Magnesium EDMS 10/09 17:40 Order name: Magnesium EDMS 10/09 17:40 Order name: Magnesium EDMS 10/09 17:40 Order name: Magnesium EDMS 10/09 17:40 Order name: Magnesium EDMS 10/09 17:40 Order name: Phosphorus EDMS 10/09 17:40 Order name: Phosphorus EDMS 10/09 17:40 Order name: Phosphorus EDMS 10/09 17:40 Order name: Phosphorus EDMS 10/09 17:40 Order name: Phosphorus EDMS 10/09 17:40 Order name: Phosphorus EDMS 10/09 17:40 Order name: Urinalysis w/ reflexes EDMS 10/09 14:05 Order name: XRAY Chest (1 view); Complete Time: 15:59 cp 10/09 17:40 Order name: Echo with Doppler EDMS 10/09 14:04 Order name: EKG; Complete Time: 14:05 db 10/09 14:04 Order name: EKG - Nurse/Tech; Complete Time: 16:13 db 10/09 14:05 Order name: Cardiac monitoring; Complete Time: 14:52 cp 10/09 14:05 Order name: IV Saline Lock; Complete Time: 14:52 cp 10/09 14:05 Order name: Labs collected and sent; Complete Time: 14:52 cp 10/09 14:05 Order name: O2 Per Protocol; Complete Time: 14:52 cp 10/09 14:05 Order name: O2 Sat Monitoring; Complete Time: 14:52 cp Administered Medications: 15:06 Drug: fentaNYL (PF) IVP 50 mcg IVP once Route: IVP; Site: right antecubital; kj2 17:39 Follow up: Response: No adverse reaction kj2 15:07 Drug: Famotidine IVP 20 mg IVP once; dilute with 10 mL 0.9% NaCl; give over 2 minutes kj2 Route: IVP; Site: right antecubital; 17:39 Follow up: Response: No adverse reaction kj2 15:07 Drug: Ondansetron IVP 4 mg IVP once; over 2 minutes Route: IVP; Site: right antecubital;kj2 17:39 Follow up: Response: No adverse reaction kj2 16:11 Drug: Aspirin PO Chewable Tablet 324 mg PO once; 81 mg tablets x 4 Route: PO; kj2 17:40 Follow up: Response: No adverse reaction kj2 17:38 Drug: Enoxaparin Sub-Q 1 mg/kg Sub-Q once Route: Sub-Q; Site: abdomen; kj2 19:17 Follow up: Response: No adverse reaction kj2 17:38 Drug: morphine IVP or IV 4 mg IVP once over 4 mins Route: IVP; Infused Over: 4 mins; kj2 Site: right antecubital; 19:28 Follow up: Response: No adverse reaction kj2 Disposition Summary: 10/09/24 16:38 Hospitalization Ordered Notes: Hospitalization Status: Inpatient Admission cp Provider: Izaiah Cardona cp Location: Telemetry/MedSurg (Inpatient) cp Condition: Stable cp Problem: new cp Symptoms: have improved cp Bed/Room Type: Standard cp Room Assignment: 224(10/09/24 19:06) rv1 Diagnosis - Angina pectoris, unspecified cp Forms: - Medication Reconciliation Form cp - SBAR form cp - Leadership Thank You Letter cp Signatures: Dispatcher [employer] EDMS Jamil Carter PA PA cp Alena Morton, RN RN db Suzie Ureña rv1 Lynn Gama RN RN kj2 Corrections: (The following items were deleted from the chart) 14:06 14:06 BASIC METABOLIC PANEL+C.LAB.BRZ ordered. EDMS EDMS 14:06 14:06 CBC+H.LAB.BRZ ordered. EDMS EDMS 14:06 14:06 HEPATIC FUNCTION+C.LAB.BRZ ordered. EDMS EDMS 14:06 14:06 MAGNESIUM+C.LAB.BRZ ordered. EDMS EDMS 14:06 14:06 PROBNP+C.LAB.BRZ ordered. EDMS EDMS 14:06 14:06 PROTIME (+INR)+COAG.LAB.BRZ ordered. EDMS EDMS 14:06 14:06 Troponin High Sensitivity+C.LAB.BRZ ordered. EDMS EDMS 14:06 14:06 Chest Single View+RAD.RAD.BRZ ordered. EDMS EDMS 19:06 16:38 cp rv1
[2024-10-09] MEDS ORDERED: ENOXAPARIN 100 MG/ML SYR SQ ONE (17:29)
[2024-10-09] MEDS ORDERED: MORPHINE 4 MG/ML SYR ONE (17:29)
[2024-10-09] MEDS ORDERED: NITROGLYCERIN 0.4 MG/TAB SL PRN (17:33)
--- NOTE | 2024-10-09 17:49 | P.HP ---
Certification for Inpatient Patient admitted to: Observation With expected LOS: <2 Midnights Practitioner: I am a practitioner with admitting privileges, knowledge of patient current condition, hospital course, and medical plan of care. Services: Services provided to patient in accordance with Admission requirements found in Title 42 Section 412.3 of the Code of Federal Regulations Patient History Date of Service: 10/10/24 Reason for admission: Chest pain R/O ACS History of Present Illness: Bryan Watts is a 58 year old male with pmhx HTN/HLD, HFrEF (23%) defibrillator in place, CKD, DM-NIDDM who presents to the ED with sharp sternal chest pain that caused discomfort all night and he wasn't able to sleep. He reports seeing other ED who sent him home but continued with chest pain associated with SOB, PND, and orthopnea. He denies chest pain at this level before and denies a heart cath in the past. Laboratory evaluation significant for BUJ/creatinine 19/1.67, GFR 47, Trop 65.1, BNP 2836, T Bili 1.1, D Bili 0.3. Chest xray reports "The heart is markedly enlarged. Defibrillator in place. No acute abnormality is displayed." EKG with no ST changes. Bryan will be admitted to hospitalist service for chest pain r/o ACS, Dr. Huerta consulted. Allergies isosorbide [From Imdur] Allergy (Verified 09/22/22 13:24) Itching Home Medications: Apixaban [Eliquis] 2.5 mg PO DAILY 07/13/22 Aspirin [Quoc Chewable] 81 mg PO DAILY 07/13/22 Atorvastatin Calcium [Lipitor] 80 mg PO BEDTIME 07/13/22 Cholecalciferol (Vitamin D3) [Vitamin D3] 25 mcg PO DAILY 07/13/22 Dapagliflozin Propanediol [Farxiga] 10 mg PO DAILY 07/13/22 Docusate Sodium 100 mg PO DAILY 07/13/22 Gabapentin [Neurontin] 100 mg PO TID 07/13/22 Glipizide [Glipizide ER] 5 mg PO DAILY 07/13/22 Lisinopril [Zestril] 2.5 mg PO DAILY 07/13/22 Magnesium Oxide 400 mg PO DAILY 07/13/22 Spironolactone 25 mg PO DAILY 07/13/22 Tizanidine HCl 2 mg PO Q8HR PRN 07/13/22 carvediloL [Coreg] 25 mg PO BID 07/13/22 - Past Medical/Surgical History Diabetic: Yes -: Diabetes type 2 -: HTN -: CAD -: Chronic systilic congestive heart failure -: Chronic systolic congestive heart failure -: acute kidney failure -: cardiomyopathy -: RIGHT KNEE SX -: ARTIFICIAL LEFT EYE- 1977 -: Cardiac catherization with stent -: pacemaker Psychosocial/ Personal History: patient lives at home with family - Family History Father -: Heart disease, Hypertension Mother -: Diabetes - Social History Alcohol use: No CD- Drugs: No Caffeine use: Yes Review of Systems Other: Per HPI Physical Examination - Physical Exam General: Alert, In no apparent distress, Oriented x3 HEENT: Atraumatic, Normocephalic, PERRLA Neck: Supple Respiratory: Clear to auscultation bilaterally, Normal air movement Cardiovascular: Normal pulses, Regular rate/rhythm, Normal S1 S2 Capillary refill: <2 Seconds Gastrointestinal: Normal bowel sounds, Soft and benign, Distended (obese) Integumentary: No rashes Neurological: Normal speech, Normal tone - Studies Laboratory Data (last 24 hrs) 10/09/24 10/09/24 10/09/24 14:36 14:36 14:36 WBC 4.10 L Hgb 15.0 Hct 46.3 Plt Count 175 PT 11.9 INR 1.05 Sodium 139 Potassium 3.5 BUN 19 H Creatinine 1.67 H Glucose 84 Magnesium 2.1 Total Bilirubin 1.1 H AST 28 ALT 38 Alkaline Phosphatase 73 Assessment and Plan - Plan Assessment and Plan Chronic systolic Heart failure reduced EF Chest pain R/O ACS NSTEMI Cardiomyopathy -continuous telemetry -trend troponin, 65.1 -weight based lovenox -ECHO ordered -Cardilogy consulted -TSH/Free T4, A1C, lipid panel -asa, lipitor daily -PRN tylenol, morphine, nitroglycerine -NPO at midnight for likely procedure -Continue home medications Diabetes mellitus -accucheck with SSI HTN -continue home medications Elevated Bilirubin -Trend in AM labs DVT ppx Lovenox Full code LOS 24 hour OBS Discharge Plan: Home Plan to discharge in: 24 Hours - Advance Directives Does patient have a Living Will: No Does patient have a Durable POA for Healthcare: No
[2024-10-09 19:46] VITALS: BMI 39.2
[2024-10-09] MEDS ORDERED: ENOXAPARIN 100 MG/ML SYR SQ SCH (21:00)
[2024-10-09] MEDS: INSULIN REGULAR (HUMAN) 100 UNIT/ML SQ SCH (21:00)
[2024-10-09 21:57] VITALS: O2SAT 98
[2024-10-09] MEDS: MORPHINE 4 MG/ML SYR IV PRN (22:45)
[2024-10-09] MEDS: ATORVASTATIN 40 MG TAB PO SCH (22:46)
[2024-10-09 23:27] LABS: Thyroid Stimulating Hormone 2.63 uIU/mL (0.358-3.740)
[2024-10-10] MEDS ORDERED: FLU (Fluarix Triv) TS24-25(6MOS UP)/PF 45 MCG/0.5 ML Syringe IM ONE (07:30)
[2024-10-10 07:34] LABS: Absolute Eosinophils 0.1 K/uL (0-0.5); Absolute Lymphocytes (CBC) 2.2 K/uL (0.7-4.9); Absolute Monocytes 0.5 K/uL (0.1-1.3); Absolute Neutrophil 1.3 K/uL (1.8-8.0); Basophils % 0.3 % (0-1.3); Eosinophils % 1.9 % (0-4.4); Hematocrit 41.8 % (39.6-49.0); Hemoglobin 13.4 g/dL (13.6-17.9); Lymphocytes % 53.8 % (15.3-44.8); MCH 26.4 pg (27.0-35.0); MCV 82.5 fL (80-100); MPV 9.2 fL (7.6-11.3); Monocytes % 11.6 % (3.3-12.3); Neutrophils % 32.4 % (41.7-73.7); Nucleated Red Blood Cells % 0.3 % (0-0); Platelets 166 thou/uL (152-406); RBC Red Blood Cell Count 5.07 M/uL (4.33-5.43); Red Cell Distribution Width 20.3 % (12.1-15.2)
[2024-10-10 07:49] LABS: Anion Gap 10.5 mEq/L (5.0-15.0); Magnesium 2.2 mg/dL (1.6-2.4); Phosphorus 4.1 mg/dL (2.5-4.9); Potassium 3.5 mEq/L (3.5-5.1)
--- NOTE | 2024-10-10 08:10 | RAD REPORT ---
EXAMINATION: TWO VIEW CHEST XR CLINICAL INDICATION: Male, 58 years old. [facility] 2L[facility] SOB TECHNIQUE: 2 view radiographs of the chest were performed. COMPARISON: 10/09/2024 FINDINGS: Central interstitial prominence, mildly less pronounced than on prior exam. No new focal airspace opa cities although retrocardiac atelectasis is again seen. No pneumothorax or sizable effusion. The heart is again markedly enlarged. Left chest wall pacer in place. Mediastinal contours are unremarkab le. IMPRESSION: Partial improvement of central congestive changes. Stable cardiomegaly.
[2024-10-10] MEDS: ASPIRIN EC 81 MG TAB PO SCH (08:24)
[2024-10-10] MEDS: ENOXAPARIN 100 MG/ML SYR SQ SCH (08:24)
[2024-10-10] MEDS: GABAPENTIN 100 MG CAP PO SCH (08:24)
[2024-10-10] MEDS: carvediloL 25 MG TAB PO SCH (08:25)
[2024-10-10] MEDS: SPIRONOLACTONE 25 MG TABLET PO SCH (08:25)
[2024-10-10] MEDS: HOME MED 1 EA UNK (Dapagliflozin Propanediol [Farxiga] 10 MG Tablet) PO SCH (08:25)
[2024-10-10 12:48] VITALS: BP 107/66; TEMP 97.5
--- NOTE | 2024-10-10 12:59 | P.CNS ---
Date of Consult: 10/10/24 Chief Complaint: Chest pain R/O ACS History of Present Illness: Patient with PMH of systolic non ischemic HF s/p Pacemaker/ICD placement, presented with worsening SOB, DELGADO, no chest pain, no palpitations, no syncope. Allergies isosorbide [From Imdur] Allergy (Verified 09/22/22 13:24) Itching Home medications list reviewed: Yes Home Medications: Apixaban [Eliquis] 2.5 mg PO DAILY 07/13/22 Aspirin [Quoc Chewable] 81 mg PO DAILY 07/13/22 Atorvastatin Calcium [Lipitor] 80 mg PO BEDTIME 07/13/22 Cholecalciferol (Vitamin D3) [Vitamin D3] 25 mcg PO DAILY 07/13/22 Dapagliflozin Propanediol [Farxiga] 10 mg PO DAILY 07/13/22 Docusate Sodium 100 mg PO DAILY 07/13/22 Gabapentin [Neurontin] 100 mg PO TID 07/13/22 Glipizide [Glipizide ER] 5 mg PO DAILY 07/13/22 Lisinopril [Zestril] 2.5 mg PO DAILY 07/13/22 Magnesium Oxide 400 mg PO DAILY 07/13/22 Spironolactone 25 mg PO DAILY 07/13/22 Tizanidine HCl 2 mg PO Q8HR PRN 07/13/22 carvediloL [Coreg] 25 mg PO BID 07/13/22 - Past Medical/Surgical History Diabetic: Yes -: Diabetes type 2 -: HTN -: CAD -: Chronic systilic congestive heart failure -: Chronic systolic congestive heart failure -: acute kidney failure -: cardiomyopathy -: RIGHT KNEE SX -: ARTIFICIAL LEFT EYE- 1977 -: Cardiac catherization with stent -: pacemaker Psychosocial/ Personal History: patient lives at home with family - Family History Father Medical History: Heart disease, Hypertension Mother Medical History: Diabetes - Social History Smoking Status: Never smoker Alcohol use: No CD- Drugs: No Caffeine use: Yes Place of Residence: Home Review of Systems 10-point ROS is otherwise unremarkable Physical Examination Temp Pulse Resp BP Pulse Ox 97.5 F 66 20 107/66 94 10/10/24 12:00 10/10/24 12:00 10/10/24 12:00 10/10/24 12:00 10/10/24 12:00 General: Alert, In no apparent distress HEENT: Atraumatic, PERRLA, Mucous membr. moist/pink, EOMI, Sclerae nonicteric Neck: Supple, 2+ carotid pulse no bruit, No LAD, Without JVD or thyroid abnormality Respiratory: Clear to auscultation bilaterally, Normal air movement Cardiovascular: Regular rate/rhythm, Normal S1 S2 Gastrointestinal: Normal bowel sounds, No tenderness Musculoskeletal: No tenderness Integumentary: No rashes Neurological: Normal gait, Normal speech, Normal tone, Normal affect Lymphatics: No axilla or inguinal lymphadenopathy Laboratory Data (last 24 hrs) 10/09/24 10/09/24 10/09/24 14:36 14:36 14:36 WBC 4.10 L Hgb 15.0 Hct 46.3 Plt Count 175 PT 11.9 INR 1.05 Sodium 139 Potassium 3.5 BUN 19 H Creatinine 1.67 H Glucose 84 Magnesium 2.1 Total Bilirubin 1.1 H AST 28 ALT 38 Alkaline Phosphatase 73 - Problems (1) Chronic combined systolic (congestive) and diastolic (congestive) heart failure Current Visit: Yes Status: Acute Plan: Patient looks euvolemic on exam continue coreg 25 mg po bid continue aldactone 25 mg daily outpatient follow up with cardioligist to intskyla tse (2) Chest pain Onset Date: 10/18/15 Current Visit: No Status: Acute Plan: Non cardiac, although enzymes are mild elevated but patient had a coronary angiogram in 2019 that shown normal ectatic coronaries ASA 81 mg daily statins outpatient follow up with cardiology for stress test Qualifiers: Chest pain type: unspecified Qualified Code(s): R07.9 - Chest pain, unspecified
--- NOTE | 2024-10-10 13:22 | P.DS ---
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 He reports seeing other ED who sent him home but continued with chest pain associated with SOB, PND, and orthopnea. He denies chest pain at this level before and denies a heart cath in the past. Laboratory evaluation significant for BUJ/creatinine 19/1.67, GFR 47, Trop 65.1, BNP 2836, T Bili 1.1, D Bili 0.3. Chest xray reports "The heart is markedly enlarged. Defibrillator in place. No acute abnormality is displayed." EKG with no ST changes. Bryan will be admitted to hospitalist service for chest pain r/o ACS, Dr. Huerta consulted. 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 Dr. Cassidy has evaluated and cleared for discharge with follow up for outpatient stress test and initiate Entresto. Physical Exam General: Alert and Oriented x3, NAD HEENT: Atraumatic, Normocephalic, PERRLA Respiratory: Clear to auscultation bilaterally, Normal air movement Cardiovascular: Paced rhythm, Normal S1 S2 Capillary refill: <2 Seconds Gastrointestinal: Soft on palpation Distended (obese) Integumentary: No rashes Neurological: Normal speech, Normal tone Vital Signs/Physical Exam: Temp Pulse Resp BP Pulse Ox 97.5 F 66 20 107/66 94 10/10/24 12:00 10/10/24 12:00 10/10/24 12:00 10/10/24 12:00 10/10/24 12:00 Laboratory Data at Discharge: WBC 4.00 thou/uL (4.3-10.9) L 10/10/24 06:53 Hgb 13.4 g/dL (13.6-17.9) L D 10/10/24 06:53 Hct 41.8 % (39.6-49.0) 10/10/24 06:53 Plt Count 166 thou/uL (152-406) 10/10/24 06:53 PT 11.9 SECONDS (10-13.0) 10/09/24 14:36 INR 1.05 10/09/24 14:36 Sodium 139 mEq/L (136-145) 10/10/24 06:53 Potassium 3.5 mEq/L (3.5-5.1) 10/10/24 06:53 BUN 23 mg/dL (7-18) H 10/10/24 06:53 Creatinine 1.42 mg/dL (0.70-1.30) H 10/10/24 06:53 Glucose 97 mg/dL (74-106) 10/10/24 06:53 Phosphorus 4.1 mg/dL (2.5-4.9) 10/10/24 06:53 Magnesium 2.2 mg/dL (1.6-2.4) 10/10/24 06:53 Total Bilirubin 1.1 mg/dL (0.2-1.0) H 10/09/24 14:36 AST 28 U/L (15-37) 10/09/24 14:36 ALT 38 U/L (16-61) 10/09/24 14:36 Alkaline Phosphatase 73 U/L (45-117) 10/09/24 14:36 Triglycerides 80 mg/dL (<150) 10/10/24 06:53 Cholesterol 151 mg/dL (<200) 10/10/24 06:53 HDL Cholesterol 53 mg/dL (40-60) 10/10/24 06:53 Cholesterol/HDL Ratio 2.85 10/10/24 06:53 Home Medications: Apixaban [Eliquis] 2.5 mg PO DAILY 07/13/22 Aspirin [Quoc Chewable] 81 mg PO DAILY 07/13/22 Atorvastatin Calcium [Lipitor] 80 mg PO BEDTIME 07/13/22 Cholecalciferol (Vitamin D3) [Vitamin D3] 25 mcg PO DAILY 07/13/22 Dapagliflozin Propanediol [Farxiga] 10 mg PO DAILY 07/13/22 Docusate Sodium 100 mg PO DAILY 07/13/22 Gabapentin [Neurontin] 100 mg PO TID 07/13/22 Glipizide [Glipizide ER] 5 mg PO DAILY 07/13/22 Lisinopril [Zestril] 2.5 mg PO DAILY 07/13/22 Magnesium Oxide 400 mg PO DAILY 07/13/22 Spironolactone 25 mg PO DAILY 07/13/22 Tizanidine HCl 2 mg PO Q8HR PRN 07/13/22 carvediloL [Coreg] 25 mg PO BID 07/13/22 Physician Discharge Instructions: PROBLEM: Chest pain GOAL: Clear understanding of disease process INSTRUCTIONS: Follow up with PCP in 3-5 days Follow up with Dr Cassidy in 3-5 days Diet: AHA Activity: Fall precautions IMMUNIZATION Influenza Vaccine Indicated: No Influenza Vaccine Given: Date Given: Pneumonia Vaccine Indicated: No Pneumonia Vaccine Given: Date Given: 1. Please call and schedule a follow-up appointment with your PCP in 3-5 days - Please follow-up with your PCP for medication refills/adjustments 2. Please call and schedule a follow-up appointment with Dr. Cassidy in 3-5 days -Plan for outpatient stress test, schedule will be made at Dr. Cassidy's office, please follow up in his clinic -Plan to start Entresto outpatient 3. Continue heart healthy diet 4. activity restrictions fall precaution when standing 5. Return to the ED if symptoms worsen Continue home medications as prescribed. Diet: AHA Activity: Fall precautions Followup: Akhil Cassidy MD [ACTIVE - CAN ADMIT] - NONE,NONE [Primary Care Provider] -
--- NOTE | 2024-10-11 10:58 | ECHO ---
HEIGHT: 6 ft 0 in WEIGHT: 289 lb 0 oz DATE OF STUDY: 10/10/[address]: Julia Bryan NP 2-DIMENSIONAL: YES M.MODE: YES DOPPLER: YES COLOR FLOW: YES TDS: PORTABLE: YES DEFINITY: BUBBLE STUDY: DIAGNOSIS: CHEST PAIN RULE OUT ACUTE CORONARY SYNDROME CARDIAC HISTORY: CATHERIZATION: NO SURGERY: NO PROSTHETIC VALVE: NO PACEMAKER: YES MEASUREMENTS (cm) DIASTOLIC (NORMALS) SYSTOLIC (NORMALS) IVSd 1.5 (0.6-1.2) LA Diam 3.4 (1.9-4.0) LVEF 5-10% LVIDd 6.9 (3.5-5.7) LVIDs 6.5 (2.0-3.5) %FS 5% LVPWd 1.6 (0.6-1.2) Ao Diam 3.2 (2.0-3.7) 2 DIMENSIONAL ASSESSMENT: RIGHT ATRIUM: NORMAL LEFT ATRIUM: NORMAL RIGHT VENTRICLE: NORMAL, PACEMAKER LEAD LEFT VENTRICLE: SEVERELY DILATED TRICUSPID VALVE: MILD TRICUSPID REGURGITATION MITRAL VALVE: TRACE MITRAL REGURGITATION PULMONIC VALVE: NORMAL AORTIC VALVE: NORMAL PERICARDIAL EFFUSION: NONE AORTIC ROOT: NORMAL LEFT VENTRICULAR WALL MOTION: SEVERE GLOBAL HYPOKINESIS DOPPLER/COLOR FLOW: GRADE II DIASTOLIC DYSFUNCTION COMMENTS: 1. SEVERELY REDUCED LEFT VENTRICULAR SYSTOLIC FUNCTION, EJECTION FRACTION 5-10%, SEVERE GLOBAL HYPOKINESIS 2. GRADE II DIASTOLIC DYSFUNCTION 3. MILDLY ELEVATED FILLING PRESSURE (RIGHT ATRIAL PRESSURE 5-10 mmHg) TECHNOLOGIST: EVERETT REYNAGA
--- NOTE | 2024-10-11 11:02 | EKG ---
Test Date: 2024-10-10 Test Time: 04:45:25 Security Incident Response Specialist: CYNDI MEASUREMENT RESULTS: Intervals: Rate: 71 IN: 156 QRSD: 204 QT: 566 QTc: 615 [place]: P: 73 IN: 156 QRS: 143 T: 101 INTERPRETIVE STATEMENTS: Electronic ventricular pacemaker Compared to ECG 10/09/2024 14:05:09 Atrial-sensed ventricular-paced complex(es) or rhythm no longer present Electronically Signed On 10-11-24 10:58:44 CDT by Akhil Cassidy
--- NOTE | 2024-10-11 11:05 | EKG ---
Test Date: 2024-10-09 Test Time: 14:05:09 Cigarette Machine Filler: NATALIE MEASUREMENT RESULTS: Intervals: Rate: 92 IN: 80 QRSD: 202 QT: 502 QTc: 620 [place]: P: 28 IN: 80 QRS: 210 T: 89 INTERPRETIVE STATEMENTS: Atrial-sensed ventricular-paced rhythm Biventricular pacemaker detected Abnormal ECG Compared to ECG 07/13/2022 02:31:06 No significant changes Electronically Signed On 10-11-24 10:59:27 CDT by Akhil Cassidy
== END 2024-10-10 16:44 | disposition home or self-care (01) ==
LOC: ER 13:51 → ERHOLD 18:27 → 2ND 20:55
PROVIDERS: ADMIT Internal Medicine; ATTEND Internal Medicine
DX: I21.4 Non-ST elevation (NSTEMI) myocardial infarction (principal); I50.42 Chronic combined systolic (congestive) and diastolic (congestive) heart failure; R07.89 Other chest pain; E78.5 Hyperlipidemia, unspecified; E11.22 Type 2 diabetes mellitus with diabetic chronic kidney disease; I12.9 Hypertensive chronic kidney disease with stage 1 through stage 4 chronic kidney disease, or unspecified chronic kidney disease; N18.9 Chronic kidney disease, unspecified; R17 Unspecified jaundice; Z95.0 Presence of cardiac pacemaker
CPT/HCPCS: 93005 ×2; 93306; 85025 ×2; 80048 ×2; 36415 ×2; 83735 ×2; 82550 ×2; 84100; 85610; 80061; 82947 ×3; 80076; 84443; 83036; 84484 ×3; 84439; 83880; 71045; 71046; 96375; 96372; 96374; 99285; J1650 ×2; J3010; J2405

== ENCOUNTER 2024-10-15 17:27 | Inpatient (IN) | payer OTHER, MEDICAID ==
[2024-10-15] MEDS ORDERED: HYDROCODONE/CHLORPHEN 5 ML/OSYR ONE (18:04)
[2024-10-15] MEDS ORDERED: LEVALBUTEROL 1.25 MG/3 ML NEB ONE (18:04)
--- OUTSIDE RECORDS SUMMARY | 2024-10-15 18:10 | XMS REPORT | Continuity of Care Document ---
Author Name Unknown Address [address] [facility] [address] [place] [address] [facility] [place] Address [address] [facility] [place] [address] Support Name Relationship Address Phone MAGI PARADA Daughter Unknown [phone] [address] [place] [address] ALESIA BALES SI Unknown VALERY BEAVERS OR [address] [place] [address] [place] Unknown NAHID PARADA Nephew [address] [place] [address] NAHID PARADA Personal Relationship [address] [place] [address] Gayle Jamison Relative [address] [place] [address] Allyson Nolen Sibling [address] [place] [address] Camila Kahn Friend UNK Annie, Joanie Friend Unknown LANETTE HENA[place] [address] PAGE HENA[place] [address] GAYLE HARRIS Relative [address] [place] [address] Unavailable ALLYSON BALES G [address] [place] [address] Unavailable KANDIS PARADA E [address] [place] [address] Unavailable Kandis Lowe Child [address] [place] [address] ELIOT MELLO Friend Unknown MAURO Grandparent Unknown Unavailable LINDA KATZ Personal Relationship Unknown + Unavailable Grandparent Unknown Care Team Providers [facility] Planner Name Role Phone Pcp, Pcp Primary Care Physician Unavailab MILAN West Attending Clinician Unav MARION Alcaraz Attending Clinician Unava ilSEBLE Hurd Attending Clinician Unavailable TIFFANY ARELLANO Attending Clinician Unav TIFFANY Ramesh Attending Clinician Unav ailable DAVID LADD K.H. Attending Clinician UnavailBJ Cole Attending Clinician Unavailable JORGE YAÑEZ Attending Clinician Unavailable Milan Burns Attending Clinician Unavailable Wilberto BOYER, Sendil K.H. Attending Clinician + [phone] Pia Watts DO Attending Clinician +[phone] Ashlyn BOYER, Jackie Agustin Attending Clinician + BROOKS BARKER Attending Clinician Unavailab BROOKS Brooks Attending Clinician Unavailab francoise Barker SEWER PIPE LAYER HELPER, Brooks Attending Clinician +[phone] Deena Hernandez MD Attending Clinician + [phone] Jose Mcgill MD Attending Clinician +[phone] Torie BOYER PhD, Stewart Attending Clinician + [phone] Milan Valverde MD Attending Clinician + Tatiana BOYER, Prema Napoles Attending Clinician +[phone] Bruna BOYER, Jose Restrepo Attending Clinician +[phone] Criss Engle MD Attending Clinician +[phone] Josef BOYER, Marion Graham Attending Clinician +[phone] Josef BOYER, Michael Muir Attending Clinician + [phone] MICHAEL DODD Attending Clinician Pelon lobo 2, [facility] Attending Clinician Unavailable Vlad BOYER, Tiffany Attending Clinician + Alexander, Ellis Sharmainep Attending Clinician Donovan Parkinson Attending Clinician +[phone] DONOVAN BILLINGSLEY Attending Clinician Unavailable Sally BAKER, Flip Ordaz Attending Clinician Unavail able Lindsey Myers MD, Evon Attending Clinician +[phone] Isela BOYER, Bj Attending Clinician +[phone] JOSEPH QUINONES Attending Clinician Unavailab Joseph Tovar DO Attending Clinician +[phone] Delicia Shaffer Attending Clinician Unavaila Abbie Munroe Attending Clinician Unavailabl e Doctor Unassigned, [place] Attending Clinician U loi RUBIN, Jorge Attending Clinician +[phone] KIM PATE Attending Clinician Unavailabl emily Montiel [facility], Rosa Maria Attending Clinician Unaedgardo Petersen RN, Adilene Attending Clinician +[phone] CRISS LEYVA Attending Clinician Unavailable Martínez [facility] Cagle Attending Clinician + [phone] Ric BOYER, Yared Baez Attending Clinician +[phone] Criss Leyva DO Attending Clinician +[phone] Josef BAKER, Ayan Miller Attending Clinician Unavail able TAMERA WHITE Attending Clinician Unavailable TAMERA WHITE Attending Clinician Unavailable Michelle Miranda MD Attending Clinician +[phone] Heather BOYER, Juan Pulido Attending Clinici an Tamera White MD Attending Clinician +[phone] Torito BOYER, Garret Attending Clinician + Dain Villarreal MD Attending Clinician +[phone] Martina Walls MD, Akhil Attending Clinician +[phone] TIO PEREZ Attending Clinician Unavailable TIO PEREZ Attending Clinician Unavailable Soni Soliman NP Attending Clinician +[phone] Tio Perez MD Attending Clinician +[phone] MARY REYNAGA Attending Clinician Unavailab MARY Cruz Attending Clinician Unavailab Mary Cruz DO Attending Clinician + [phone] JONATHAN ZAPATA Attending Clinician UnavailGINO Caal Attending Clinician UnavailGINO Caal Attending Clinician UnavailJairo Fitzgerald Attending Clinician +[phone] Gino Rico MD Attending Clinician +[phone] Vernon Weller MD Attending Clinician +[phone] Lorena Hendricks MD Attending Clinician +[phone] REBECCA MICHELE Attending Clinician Unavaila DANNY Harrell Attending Clinician Nelly Kim Sarabia NP Attending Clinician +[phone] JEANNA KAMARA Attending Clinician Unavailable JEANNA KAMARA Attending Clinician Unavailable YARED LARIOS Attending Clinician UnavailDeysi Cuevas PA-C Attending Clinician +[phone] DEYSI BONE Attending Clinician Unavailable DEYSI BONE Attending Clinician Unavailable EMIL FREEMAN Attending Clinician Unavailab francoise Munoz, Cardiomem Interp Attending Clinician Donovan Parkinson Attending Clinician +[phone] Debby Solano Attending Clinician +[phone] Jorge Barone Attending Clinician +[phone] ROBERTO STOKES Attending Clinician UnavailROBERTO Poon Attending Clinician Unavailwoo Ladd MD, David Sullivan Attending Clinician + [phone], [facility] Attending Clinician Unavailable Kim Pate NP Attending Clinician +[phone] Doctor Unassigned, [place] Attending Clinician U loi Sanderson MD, Cornelia Attending Clinician +[phone] Neftali PARACHUTE/COMBATANT DIVER OFFICER, Jonathan Valderrama Attending Clinician +[phone] Albert BOYER, Seble Attending Clinician +[phone] KELLY KNOWLES Attending Clinician Unavailable Estela BOYER, Rebecca Attending Clinician + [phone] TANA WHITMORE Attending Clinician Unavailable Myranda PARACHUTE/COMBATANT DIVER OFFICER, Tana Saba Attending Clinician +[phone] CORNELIA SANDERSON Attending Clinician Unavailable Amado BOYER, Maria E Attending Clinician +[phone] JUAN HERNANDEZ Attending Clinician Unavailable Adrianna Heath MD Attending Clinician +[phone] ADRIANNA HEATH Attending Clinician Unavailable Rolo BAKER, Page Cespedes Attending Clinician Unavailab Garner [facility], Jesse Attending Clinician + [phone] Criss Leyva DO Attending Clinician +[phone] Bj Weiss MD Attending Clinician +[phone] KIMI YADAV Attending Clinician Unavailwoo Yadav MD, Kimi Vázquez Attending Clinician +[phone] Asad Armendariz MD Attending Clinician +[phone] HALLIE GREENBERG Attending Clinician Unav savita Greenberg MD, Hallie Brito Attending Clinician + Lilli Mcneil RN Attending Clinician +[phone] Kim Jones MD Attending Clinician +[phone] Doris Amaral MD Attending Clinician +[phone] PRUDENCE COHEN Attending Clinician Unavailorlin FINNEGAN, Prudence Attending Clinician Sunshine Klein MD Attending Clinician +[phone] KIM JONES Attending Clinician Unadoni Mata RN, Chelo Attending Clinician Unavailable Elise BOYER, Prieto Vanegas Attending Clinician +[phone] SUNSHINE KLEIN Attending Clinician Unavaila SUNSHINE Grady Attending Clinician Unavaila rebeca Gonzalez RN, Alisa Saba Attending Clinician PIA Pringle Attending Clinician Unavailable Pia Watts DO Attending Clinician + Tomas Mcguire MD Attending Clinician + [phone] Abilio PARACHUTE/COMBATANT DIVER OFFICER, Denis Attending Clinician + [phone] Merry BAKER, Erica Choudhary Attending Clinician + [phone] MIKO MONTALVO Attending Clinician Unavailable Joseph Quinones DO Attending Clinician +[phone] TONYA CARRION Attending Clinician Unavailable Tc THOMPSONP, Karine Farmer Attending Clinician +-[phone] Jose BOYER, Steven Attending Clinician +[phone] Stevenson BOYER, Fran Attending Clinician +[phone] Ponce BOYER, Tonya Attending Clinician +[phone] Piter BAKER, Adilene Attending Clinician Unavailabl e [place], Nephrology Attending Clinician Unavaila ble 1, [facility] Bed Attending Clinician Unavail able Only, [facility] Test Attending Clinician Unavailable REBECCA PALMER Attending Clinician Unavailabl Janina Stephens DO Attending Clinician + Artemio [facility], Shahnaz Saba Attending Clinician + [phone] Bret BOYER, Elizabet Sanchez Attending Clinician Heather BOYER, Juan Pulido Attending Clinici an Visit, [facility] Nurse Attending Clinician Unavailable Michelle Miranda MD Attending Clinician +[phone] Major BAKER, Radha Hernández Attending Clinician Unavaila ble Pob, [facility] Main Attending Clinician UnavailMARIA E Long Attending Clinician Unavailable Jairo JORDAN Attending Clinician Unavailable Jairo Cuellar Attending Clinician +[phone] Oh Espinoza MD Attending Clinician +[phone] Magdi BAKER, Yvonne Saba Attending Clinician Unavail able Jonel FINNEGAN, Henrique Cespedes Attending Clinician + [phone] Romel Burns OT Attending Clinician Unadoni Stokes MD, Roberto Saba Attending Clinician +[phone] Ana HANNAW, Austin W Attending Clinician Unavail able Vanita BOYER, Janiya Attending Clinician +[phone] OH ESPINOZA Attending Clinician Unavailable ALICIA TELLEZ Attending Clinician Unavailable ALICIA TELLEZ Attending Clinician Unavailable Jose BOYER, Rafy Middleton Attending Clinician RAFY UGARTE Attending Clinician Un available Judi BOYER, Cate Attending Clinician +[phone] CATE POST Attending Clinician Unavailable UNKNOWN, ATTENDING Attending Clinician Unavailab le Coleman, Attending Attending Clinician Unavailab LORETA Rosen Attending Clinician Unav savita Degroot RN, Macy Attending Clinician Unavailable Izaiah Hobbs DO Attending Clinician +[phone] Kalen Soto MD, Thelma Attending Clinician +[phone] Israel Morgan MD Attending Clinician +[phone] Ursula FINNEGAN, Taz Miller Attending Clinician +[phone] FERNANDA SANDERS Attending Clinician Unavailable MOHSEN VASQUES Attending Clinician Unavail able Jason FINNEGAN, Destiny Attending Clinician +[phone] Nurse, [facility] Immunization Attending Clinician Unavailable Mohsen Vasques DO Attending Clinician +[phone] DEBBY BROWN Attending Clinician Unavailable Doris Christensen RN Attending Clinician Unavailable KARINE LOJA Attending Clinician Unavaila LUIS ANGEL John Attending Clinician Unavailable Luis Angel Paul Attending Clinician + [phone] OREN DALAL Attending Clinician Unavailable Oren Dalal MD Attending Clinician +[phone] Sherrie Taylor NP Attending Clinician +[phone] Adilene Petersen RN Attending Clinician +[phone], [facility] Nurse Attending Clinician Unaedgardo Porras, Darío Meek Attending Clinician Unavailorlin Trinh MD, Fran Culver Attending Clinician +[phone] Jackelyn Obregon Attending Clinician +[phone] Stephan Juan Attending Clinician Unavailable Ayush Vieira MD Attending Clinician +[phone] Estefani Dillon MD Attending Clinician +[phone] DORIS AMARAL Attending Clinician Unavailable Precious Bae Attending Clinician Unavailable Isac Rouse Attending Clinician Unavailable Yared Scott Attending Clinician Unavailable MILAN RAYO Attending Clinician UnavailMilan Engel Attending Clinician +[phone] AYUSH VIEIRA Attending Clinician Unavail able AYUSH VIEIRA Attending Clinician Unavail able CHUCKIE RODRÍGUEZ Attending Clinician Unavail able Benoit Tello Attending Clinician UnavailCM [place] Attending Clinician Unavailabl MARIA E Berry Attending [...] Unav ailable SEBLE PRICE Admitting Clinician Unavailable BJ WEISS Admitting Clinician Unavailable JORGE YAÑEZ Admitting Clinician Unavailable Milan Valverde MD Admitting Clinician + Bj Weiss MD Admitting Clinician +[phone] JOSEPH QUINONES Admitting Clinician Unavailab TIFFANY Andre Admitting Clinician Unav ailable YARED LARIOS Admitting Clinician UnavailYared Magaña MD Admitting Clinician [phone] CRISS LEYVA Admitting Clinician Unavailable Criss Leyva DO Admitting Clinician +[phone] TIO PEREZ Admitting Clinician Unavailable Tio Perez MD Admitting Clinician +[phone] GINO RICO Admitting Clinician UnavailGino Caal MD Admitting Clinician +[phone] DAVID LADD.HTej Admitting Clinician Unavaila EMIL Horton Admitting Clinician Unavailab JUDAH Coppola Admitting Clinician Unavailab Bj Bains MD Admitting Clinician +[phone] KIMI YADAV Admitting Clinician UnavailHALLIE Price [facility] Admitting Clinician UnaElijah Cleary [facility] Ad[facility] Clinician + MARY REYNAGA Admitting Clinician Unavailab GINO Hernandez Admitting Clinician UnavailCriss Ott DO Admitting Clinician +[phone] FRAN GAMINO Admitting Clinician Unavailab PIA Oneal Admitting Clinician Unavailable Oh Espinoza MD Admitting Clinician +[phone] OH ESPINOZA Admitting Clinician Unavailable Rafy Ugarte MD Admitting Clinician RAFY UGARTE Admitting Clinician Un available Judi BOYER [facility] Admitting Clinician +[phone] CATE POST Admitting Clinician Unavailable Jairo JORDAN Admitting Clinician Unavailable Thelma Gallardo MD Admitting Clinician +[phone] DEBBY BROWN Admitting Clinician Unavailable LUIS ANGEL JIMENEZ Admitting Clinician Unavailable KIM JONES Admitting Clinician UnaOREN Hernadez Admitting Clinician Unavailable Oren Dalal MD Admitting Clinician +[phone] JUAN HERNANDEZ Admitting Clinician Unavailable Juan Hernandez MD Admitting Clinici an Stephan Juan Admitting Clinician Unavailable Physician, No Primary or Family Admitting Clinic sarah Unavailable Estefani Dillon MD Admitting Clinician ESTEFANI DILLON Admitting Clinician Unavailable Precious Bae [...] Number Effective Date Expirati on Date Source [facility] MEDICARE DUAL SN OON Medicare [id number] 2024 00:00:00 [facility] Medicaid [id number] 2024 00:00:00 MEDICARE PART A \\T\\ B [id number] 2002 00:00:00 [facility] [id number] 2022 00:00:00 [place] [id number] 2011 00:00:00 [facility] [id number] [facility]:00:00 [facility] [id number] 00:00:00 Problems Condition Name Condition Details Condition Category Status Onset Date Resolution Date Last Treatment Date Treating Clinician Comments Source Diabetes mellitus Diabetes mellitus Disease Recurre [facility] 03 00:00: 00 Maxine Fry Epic Chest pain, unspecifie d type Chest pain, unspecifie d type Disease Active 10-01 00:00: 00 Maxine Gill Unstable angina Unstable angina Disease Active -16 00:00: 00 [facility] Atrial flutter Atrial flutter Disease Active 08 00:00: 00 [facility] Palpitatio ns Palpitatio ns Disease Active 07 00:00: 00 [facility] Pacemaker malfunctio n, initial encounter Pacemaker malfunctio n, initial encounter Disease Active 2023-08 00:00: 00 [facility] Type 2 diabetes mellitus with diabetic neuropathy , without long-term current use of insulin Type 2 diabetes mellitus with diabetic neuropathy , without long-term current use of insulin Disease Active 2023-08 2 00:00: 00 [facility] Congestive heart failure, unspecifie d HF chronicity , unspecifie d heart failure type Congestive heart failure, unspecifie d HF chronicity , unspecifie d heart failure type Disease Active 2023-08 2 00:00: 00 [facility] 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 Disease Active 9- 00:00: 00 [facility] Morbid obesity Morbid obesity Disease Active 9- 00:00: 00 [facility] Effusion of left knee Effusion of left knee Disease Active 8- 00:00: 00 [facility] Pain and swelling of left knee Pain and swelling of left knee Disease Active 8- 00:00: 00 [facility] Primary osteoarthr itis of left knee Primary osteoarthr itis of left knee Disease Active 8- 00:00: 00 [facility] Internal hemorrhoid s Internal hemorrhoid s Disease Active 9 00:00: 00 [facility] Presence of cardiac resynchron ization therapy defibrilla tor (IMMIGRATION JUDGE-D) Presence of cardiac resynchron ization therapy defibrilla tor (IMMIGRATION JUDGE-D) Disease Active 1-19 00:00: 00 [facility] GIUSEPPE (acute kidney injury) GIUSEPPE (acute kidney injury) Disease Active 2021-08 00:00: 00 [facility] Obesity (BMI 30-39.9) Obesity (BMI 30-39.9) Disease Active 2021-08 00:00: 00 [facility] GIUSEPPE (acute kidney injury) GIUSEPPE (acute kidney injury) Disease Active 2021-08 1-05 00:00: 00 [facility] Somnolence Somnolence Disease Active 2021-08 1-03 00:00: 00 [facility] SOB (shortness of breath) SOB (shortness of breath) Disease Active 2021-08 0-31 00:00: 00 [facility] CHF (congestiv e heart failure), NYHA class IV, acute, combined CHF (congestiv e heart failure), NYHA class IV, acute, combined Disease Active 2021-08 0-30 00:00: 00 [facility] Encounter for colorectal cancer screening Encounter for colorectal cancer screening Disease Active 2021-08 0-25 00:00: 00 Overview: Formattin g of this note might be different from the original. Added automatic ally from request for surgery [id number] [facility] Acute nonintract able headache, unspecifie d headache type Acute nonintract able headache, unspecifie d headache type Disease Active 2021-08 0-09 00:00: 00 [facility] Chest pain of uncertain etiology Chest pain of uncertain etiology Disease Active 2021-08 0-03 00:00: 00 [facility] Diverticul itis Diverticul itis Disease Active 8 00:00: 00 [facility] Blood in stool Blood in stool Disease Active 8-27 00:00: 00 [facility] 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 Disease Active 8-04 00:00: 00 [facility] Troponin I above reference range Troponin I above reference range Disease Active 8-04 00:00: 00 [facility] Hypertensi ve emergency Hypertensi ve emergency Disease Active 8-04 00:00: 00 [facility] 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 Disease Active 8-04 00:00: 00 [facility] Chest pain, unspecifie d type Chest pain, unspecifie d type Disease Active 8-03 00:00: 00 [facility] Chest pain Chest pain Disease Active 0 5-12 00:00: 00 [facility] Decreased activities of daily living (ADL) Decreased activities of daily living (ADL) Disease Active 3-22 00:00: 00 [facility] History of cerebrovas cular accident (CVA) with residual deficit History of cerebrovas cular accident (CVA) with residual deficit Disease Active 3-22 00:00: 00 [facility] PAF (paroxysma l atrial fibrillati on) PAF (paroxysma l atrial fibrillati on) Disease Active 0 3-07 00:00: 00 [facility] NSTEMI (non-ST elevated myocardial infarction ) NSTEMI (non-ST elevated myocardial infarction ) Disease Active 2-19 00:00: 00 [facility] Left-sided weakness Left-sided weakness Disease Active 5-17 00:00: 00 [facility] Noncomplia nce Noncomplia nce Disease Active 0 5-11 00:00: 00 [facility] Dyslipidem ia Dyslipidem ia Disease Active 3-11 00:00: 00 [facility] Chronic left-sided low back pain with sciatica, sciatica laterality unspecifie d Chronic left-sided low back pain with sciatica, sciatica laterality unspecifie d Disease Active 2-12 00:00: 00 [facility] Cardiac resynchron ization therapy defibrilla tor (IMMIGRATION JUDGE-D) in place Cardiac resynchron ization therapy defibrilla tor (IMMIGRATION JUDGE-D) in place Disease Active 0 1-13 00:00: 00 [facility] Heart block Heart block Disease Recurre nce 0 1-05 00:00: 00 [facility] Chest pain of unknown etiology Chest pain of unknown etiology Disease Active 0 8-31 00:00: 00 [facility] Stage 3 chronic kidney disease Stage 3 chronic kidney disease Disease Active 0 4-18 00:00: 00 [facility] Diverticul osis large intestine w/o perforatio n or abscess w/o bleeding Diverticul osis large intestine w/o perforatio n or abscess w/o bleeding Disease Active 02-19 00:00: 00 [facility] PRAVEEN on CPAP PRAVEEN on CPAP Disease Active -14 00:00: 00 [facility] LVH (left ventricula r hypertroph y) LVH (left ventricula r hypertroph y) Disease Active 09-22 00:00: 00 [facility] Nonischemi c cardiomyop athy Nonischemi c cardiomyop athy Disease Active 09-22 00:00: 00 [facility] Metabolic syndrome Metabolic syndrome Disease Active 2014-08 00:00: 00 [facility] ACC/AHA stage B congestive heart failure ACC/AHA stage B congestive heart failure Disease Active 2014-08 00:00: 00 [facility] PRAVEEN (obstructi ve sleep apnea) PRAVEEN (obstructi ve sleep apnea) Disease Active 2014-08 00:00: 00 [facility] Essential hypertensi on Essential hypertensi on Disease Active 2014-08 00:00: 00 [facility] Type 2 diabetes mellitus with complicati on, without long-term current use of insulin Type 2 diabetes mellitus with complicati on, without long-term current use of insulin Disease Active 2014-08 00:00: 00 [facility] 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 Disease Active 2014-08 00:00: 00 [facility] CVA, old, hemiparesi s CVA, old, hemiparesi s Disease Active 2014-08 00:00: 00 [facility] Chronic dental pain Chronic dental pain Disease Active 2014-08 00:00: 00 [facility] Chronic dental pain Chronic dental pain Disease Active 2014-08 00:00: 00 [facility] Chronic combined systolic and diastolic CHF, NYHA class 2 Chronic combined systolic and diastolic CHF, NYHA class 2 Disease Resolve d 09-22 00:00: 00 2024-08-17 00:00:00 2024-08-17 14:41:12 [facility] Chest pain, unspecifie d type Chest pain, unspecifie d type Disease Resolve d 7-16 00:00: 00 2022-03-04 00:00:00 2022-03-04 18:46:31 [facility] Stroke determined by clinical assessment Stroke determined by clinical assessment Disease Resolve d 3-02 00:00: 00 2022-03-04 00:00:00 2022-03-04 18:46:35 [facility] Elevated troponin I level Elevated troponin I level Disease Resolve d 2020-08 2-20 00:00: 00 2022-03-04 00:00:00 2022-03-04 18:46:42 [facility] Obesity (BMI 30-39.9) Obesity (BMI 30-39.9) Disease Resolve d 2020-08 0-16 00:00: 00 2022-03-04 00:00:00 2022-03-04 18:46:41 [facility] Morbid obesity Morbid obesity Disease Resolve d 7-24 00:00: 00 2022-03-04 00:00:00 2022-03-04 18:46:40 [facility] Stroke, acute, embolic Stroke, acute, embolic Disease Resolve d 5-17 00:00: 00 2022-03-04 00:00:00 2022-03-04 18:46:38 [facility] Acute CVA (cerebrova scular accident) Acute CVA (cerebrova scular accident) Disease Resolve d 3-24 00:00: 00 2022-03-04 00:00:00 2022-03-04 18:46:20 [facility] [facility] Acute on chronic systolic congestive heart failure Acute on chronic systolic congestive heart failure Disease Resolve d 2019-08 2-29 00:00: 00 2022-03-04 00:00:00 2022-03-04 18:46:03 [facility] Acute on chronic systolic and diastolic heart failure, NYHA class 3 Acute on chronic systolic and diastolic heart failure, NYHA class 3 Disease Resolve d 2019-08 0-14 00:00: 00 2022-03-04 00:00:00 2022-03-04 18:46:16 [facility] GIUSEPPE (acute kidney injury) GIUSEPPE (acute kidney injury) Disease Resolve d 4-20 00:00: 00 2021 00:00:00 2021 18:43:48 [facility] Acute right-side d CHF (congestiv e heart failure) Acute right-side d CHF (congestiv e heart failure) Disease Resolve d 4-01 00:00: 00 2021 00:00:00 2021 18:43:47 [facility] Elevated troponin Elevated troponin Disease Resolve d 2-26 00:00: 00 2021 00:00:00 2021 18:43:42 [facility] Acute on chronic heart failure, unspecifie d heart failure type Acute on chronic heart failure, unspecifie d heart failure type Disease Resolve d 1-20 00:00: 00 2021 00:00:00 2021 18:43:38 [facility] SOB (shortness of breath) SOB (shortness of breath) Disease Resolve d 1-12 00:00: 00 2021 00:00:00 2021 18:44:15 [facility] Congestive heart failure, unspecifie d HF chronicity , unspecifie d heart failure type Congestive heart failure, unspecifie d HF chronicity , unspecifie d heart failure type Disease Resolve d 1-11 00:00: 00 2021 00:00:00 2021 18:44:12 [facility] COVID-19 virus infection COVID-19 virus infection Disease Resolve d 2020-08 2-20 00:00: 00 2021 00:00:00 2021 18:43:50 [facility] Hypertensi ve emergency Hypertensi ve emergency Disease Resolve d 2020-08 2-20 00:00: 00 2021 00:00:00 2021 18:43:52 [facility] CHF with unknown LVEF CHF with unknown LVEF Disease Resolve d 2020-08 1-29 00:00: 00 2021 00:00:00 2021 18:44:09 [facility] 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) Disease Resolve d 2020-08 0-03 00:00: 00 2021 00:00:00 2021 18:44:06 [facility] Pulmonary edema with congestive heart failure Pulmonary edema with congestive heart failure Disease Resolve d 7-23 00:00: 00 2021 00:00:00 2021 18:44:17 [facility] Chest pain Chest pain Disease Resolve d 7-19 00:00: 00 2021 00:00:00 2021 18:44:19 [facility] Non-intrac table vomiting with nausea, unspecifie d vomiting type Non-intrac table vomiting with nausea, unspecifie d vomiting type Disease Resolve d 2-06 00:00: 00 2021 00:00:00 2021 18:44:29 [facility] Cardiomyop athy Cardiomyop athy Disease Resolve d 1-21 00:00: 00 2021 00:00:00 2021 18:44:32 [facility] Diabetic eye exam Diabetic eye exam Disease Resolve d 0 7-11 00:00: 00 2021 00:00:00 2021 18:44:34 [facility] Atypical chest pain Atypical chest pain Disease Resolve d 2015-08 2-20 00:00: 00 2021 00:00:00 2021 18:44:36 [facility] ICD (implantab le cardiovert er-defibri llator) in place ICD (implantab le cardiovert er-defibri llator) in place Disease Resolve d 1-12 00:00: 00 2021-07-19 00:00:00 2021-07-19 15:26:26 [facility] Systolic CHF, acute on chronic Systolic CHF, acute on chronic Disease Resolve d 2020-08 0-15 00:00: 00 2021-06-04 00:00:00 2021-06-04 15:17:28 [facility] Heart failure Heart failure Disease Resolve d 2020-08 0-06 00:00: 00 2021-06-04 00:00:00 2021-06-04 15:17:49 [facility] NSTEMI (non-ST elevated myocardial infarction ) NSTEMI (non-ST elevated myocardial infarction ) Disease Resolve d 2-26 00:00: 00 2021-06-04 00:00:00 2021-06-04 15:17:40 [facility] PAF (paroxysma l atrial fibrillati on) PAF (paroxysma l atrial fibrillati on) Disease Resolve d 8-09 00:00: 00 2021-06-04 00:00:00 2021-06-04 15:17:35 [facility] Myocardial infarction type 2 Myocardial infarction type 2 Disease Resolve d 1-29 00:00: 00 2021-06-04 00:00:00 2021-06-04 15:17:45 [facility] Acute decompensa breanne heart failure Acute decompensa breanne heart failure Disease Resolve d 8-10 00:00: 00 2021-04-09 00:00:00 2021-04-09 14:32:57 [facility] Uncontroll ed hypertensi on Uncontroll ed hypertensi on Disease Resolve d 1-25 00:00: 00 2021-04-09 00:00:00 2021-04-09 14:32:43 [facility] Hospital discharge follow-up Hospital discharge follow-up Disease Resolve d 6-03 00:00: 00 2021-02-07 00:00:00 2021-02-07 19:03:57 [facility] Hypertensi ve urgency Hypertensi ve urgency Disease Resolve d 3-13 00:00: 00 2021-02-07 00:00:00 2021-02-07 19:03:44 [facility] Obesity (BMI 30-39.9) Obesity (BMI 30-39.9) Disease Resolve d 1-26 00:00: 00 2021-02-07 00:00:00 2021-02-07 19:03:39 [facility] Hypotensio n due to hypovolemi a Hypotensio n due to hypovolemi a Disease Resolve d 1-13 00:00: 00 2021-02-07 00:00:00 2021-02-07 19:03:26 [facility] Elevated troponin Elevated troponin Disease Resolve d 1-12 00:00: 00 2021-02-07 00:00:00 2021-02-07 19:03:24 [facility] GIUSEPPE (acute kidney injury) GIUSEPPE (acute kidney injury) Disease Resolve d 2019-08 2-29 00:00: 00 2021-02-07 00:00:00 2021-02-07 19:03:22 [facility] Renal insufficie ncy Renal insufficie ncy Disease Resolve d 0 2-27 00:00: 00 2021-02-07 00:00:00 2021-02-07 19:03:32 [facility] Hypertensi ve emergency Hypertensi ve emergency Disease Resolve d 0 1-29 00:00: 00 2021-02-07 00:00:00 2021-02-07 19:03:30 [facility] Chest pain Chest pain Disease Resolve d 5-10 00:00: 00 2021-02-07 00:00:00 2021-02-07 19:03:35 [facility] Morbid obesity with body mass index of 40.0-49.9 Morbid obesity with body mass index of 40.0-49.9 Disease Resolve d 4-06 00:00: 00 2021-02-07 00:00:00 2021-02-07 19:03:37 [facility] Troponin I above reference range Troponin I above reference range Disease Resolve d 9- 00:00: 00 2020-05-09 00:00:00 2020-05-09 20:01:04 [facility] Elevated troponin Elevated troponin Disease Resolve d 5-15 00:00: 00 2020-05-09 00:00:00 2020-05-09 20:00:07 [facility] Hypertensi ve urgency Hypertensi ve urgency Disease Resolve d -08 00:00: 00 2020-05-09 00:00:00 2020-05-09 20:00:13 [facility] Headache Headache Disease Resolve d 2-25 00:00: 00 2020-05-09 00:00:00 2020-05-09 20:00:10 [facility] Congestion of nasal sinus Congestion of nasal sinus Disease Resolve d 2-06 00:00: 00 2020-05-09 00:00:00 2020-05-09 20:00:00 [facility] Viral URI with cough Viral URI with cough Disease Resolve d 2-06 00:00: 00 2020-05-09 00:00:00 2020-05-09 20:00:54 [facility] Rectal bleeding Rectal bleeding Disease Resolve d 9-25 00:00: 00 2020-05-09 00:00:00 2020-05-09 20:01:01 [facility] GIUSEPPE (acute kidney injury) GIUSEPPE (acute kidney injury) Disease Resolve d 2-28 00:00: 00 2020-05-09 00:00:00 2020-05-09 19:59:50 [facility] Blood pressure instabilit y Blood pressure instabilit y Disease Resolve d 2-15 00:00: 00 2020-05-09 00:00:00 2020-05-09 19:59:53 [facility] Morbid obesity with body mass index of 50 or higher Morbid obesity with body mass index of 50 or higher Disease Resolve d 4-06 00:00: 00 2020-05-09 00:00:00 2020-05-09 20:00:36 [facility] Hypertensi ve emergency, no CHF Hypertensi ve emergency, no CHF Disease Resolve d 2015-08 00:00: 00 2020-05-09 00:00:00 2020-05-09 20:00:12 [facility] Obesity Obesity Disease Resolve d 2014-08 00:00: 00 2020-05-09 00:00:00 2020-05-09 20:01:15 [facility] Atypical chest pain Atypical chest pain Disease Resolve d 2015-08 0 00:00: 00 2016-06-10 00:00:00 2016-06-10 07:48:15 [facility] Hypertensi on, malignant Hypertensi on, malignant Disease Resolve d 01-21 00:00: 00 2016-06-10 00:00:00 2016-06-10 07:48:22 [facility] Hypertensi ve urgency Hypertensi ve urgency Disease Resolve d 12-24 00:00: 00 2016-06-10 00:00:00 2016-06-10 07:48:27 [facility] Type 2 diabetes mellitus Type 2 diabetes mellitus Disease Resolve d 12-24 00:00: 00 2016-06-10 00:00:00 2016-06-10 07:48:49 [facility] Fever Fever Disease Resolve d 12-23 00:00: 00 2016-06-10 00:00:00 2016-06-10 07:48:33 [facility] Chest pain Chest pain Disease Resolve d 08-28 00:00: 00 2016-06-10 00:00:00 2017-09-17 10:03:23 [facility] Shortness of breath Shortness of breath Disease Resolve d 2014-08 00:00: 00 2016-06-10 00:00:00 2016-06-10 07:48:56 [facility] Chest discomfort Chest discomfort Disease Resolve d 2014-08 00:00: 00 2016-06-10 00:00:00 2016-06-10 07:49:00 [facility] Allergies, Adverse Reactions, Alerts Allergy Name Allergy Type Status Severity Reaction(s) Onset Date Inactive Date Treating Clinician Comments Source No Known Allergie s DA Active U 11-30 00:00: 00 [facility] No Known Allergie s DA Active U 11-30 00:00: 00 [facility] No Known Allergie s DA Active U 11-29 00:00: 00 [facility] Isosorbi de Mononitr ate Propensi ty to adverse reaction s Active Other - See comments 04-04 00:00: 00 Severe hypotensi on, likely from severe LVH per Dr. Sanderson. [facility] ISOSORBI DE MONONITR ATE DRUG INGREDI Active Other-Cmnt 04-04 00:00: 00 [facility] No Known Allergie s DA Active U 11-10 00:00: 00 [facility] Family History Family Member Diagnosis Comments Start Date Stop Date Sourc e Natural [facility] Hy[facility] Natural mother CHF (congestive hear t failure) [facility] Natural mother Depression [facility] Natural mother Diabetes Unive [facility] Natural [facility] Hy[facility] Natural sister Heart Unive [facility] Social History Social Habit Start Date Stop Date Quantity Comments Source Gender identity Juan Daniel Fry [facility] Sexual orientation [facility] History of tobacco use Passive smoker [facility] History SDOH Alcohol Frequency [facility] History SDOH [facility] History SDOH Alcohol Binge [facility] Alcoholic beverage intake 2024-10-02 00:00:00 2024-10-02 00:00:00 Lifetime non-drinker (finding) [place] [facility] History of Social function 2024-10-02 00:00:00 2024-10-02 00:00:00 [facility] Tobacco use and exposure 2024-05-15 00:00:00 2024-05-15 00:00:00 Smokeless tobacco non-user [facility] Alcohol intake 2023-11-18 00:00:00 2023-11-18 00:00:00 Ex-drinker (finding) [facility] Exposure to SARS-CoV-2 (event) 2022-11-18 00:00:00 2022-11-28 09:00:00 Not sure [facility] History SDOH Transport Med 2022-05-28 00:00:00 2022-05-28 00:00:00 2 [facility] History SDOH Transport Non-Med 2022-05-28 00:00:00 2022-05-28 00:00:00 2 [facility] History SDOH Financial 2022-05-12 00:00:00 2022-05-12 00:00:00 5 [facility] History SDOH Food Worry 2022-05-12 00:00:00 2022-05-12 00:00:00 1 [facility] History SDOH Food Scarcity 2022-05-12 00:00:00 2022-05-12 00:00:00 1 [facility] Alcohol Comment 2021-05-22 00:00:00 2021-05-22 00:00:00 1 cup of whiskey but last dirnk in December [facility] Education 2020-04-30 00:00:00 2020-04-30 00:00:00 13 [facility] Sex assigned at 1965 00:00:00 1965 00:00:00 [facility] Smoking Status Start Date Stop Date Source Never smoked tobacco [facility] Medications Ordered Medication Name Filled Medication [...] MG tablet 10-03 16:27: 08 Yes 500mg Q.[id number] 3D Take 500 mg by mouth 3 [...] orally or via feeding tube >/= 14 Trinidadian, may dissolve each 20 mEq tablet in 4 oz of water. Allow about 2 minutes for the tablets to disintegra te. Stir before giving to prepare slurry and administer . Please exclude patient's with feeding tube less than 14 Trinidadian (Dobhoff, J-tube, etc) and pediatric and patients [...] 2 g 10-02 09:00: 00 Yes 2g Q.[id number] 3D 2 g, Topical, 3 times daily, [...] orally or via feeding tube >/= 14 Trinidadian, may dissolve each 20 mEq tablet in 4 oz of water. Allow about 2 minutes for the tablets to disintegra te. Stir before giving to prepare slurry and administer . Please exclude patient's with feeding tube less than 14 Trinidadian (Dobhoff, J-tube, etc) and pediatric and patients [...] MG capsule 10-01 13:00: 00 Yes 100mg Q.[id number] 3D Take 100 mg by mouth in the morning and 100 mg at noon and 100 mg in the evening. Maxine Gill bumetanide (Bumex) injection 2 mg bumetanide (Bumex) injection 2 mg 10-01 13:00: 00 Yes 2mg Q.[id number] 3D 2 mg, Intravenou s, Administer over 2 Minutes, 3 times daily, First dose on 10/01/24 at 1300 Maxine Fry [facility] isosorbide dinitrate (Isordil) tablet 5 mg isosorbide dinitrate (Isordil) tablet 5 mg 10-01 13:00: 00 Yes 5mg Q.[id number] 3D 5 mg, Oral, 3 times daily, First dose on 10/01/24 at 1300 Maxine Fry [facility] hydrALAZINE (Apresoline ) tablet 10 mg hydrALAZINE (Apresoline ) tablet 10 mg 10-01 11:25: 00 Yes 10mg Q8H 10 mg, Oral, Every 8 hours, [facility] 10[facility]01/24 [facility] aspirin EC EC tablet 81 mg aspirin EC EC tablet 81 mg 10-01 11:25: 00 10-03 10:26 :00 No 81mg QD 81 mg, Oral, Daily, First dose on 10/01/24 at 1125, Do not crush, chew, or split. Maxine Fry [facility] insulin lispro (HumaLOG, Admelog) injection 1-4 Units insulin lispro (HumaLOG, Admelog) injection 1-4 Units 10-01 11:20: 18 Yes 1U Q.[id number] 3D 1-4 Units, Subcutaneo us, 3 times [...] 300 instructio ns: Contact Provider Maxine Fry [facility] glucagon injection 1 mg glucagon injection 1 [...] to swallow or npo and notify MD. Pkelsa Fry Epic dextrose 50 % solution 25 g dextrose 50 % solution 25 g 10-01 11:20: 15 Yes 25g 25 g, Intravenou s, As needed, other, if Blood Glucose </= 50 mg/dL, Starting on 10/01/24 at 1120, If BG </=50 mg/dL, give 50 mL of D50W IV push STAT and notify MD. Pkelsa wandy Ang [facility] dextrose 50 % solution 12.5 g dextrose 50 % solution 12.5 g 10-01 11:20: 14 Yes 12.5g 12.5 g, Intravenou s, As needed, low blood sugar, if Blood Glucose 51- 69 mg/dL, Starting on 10/01/24 at 1120, For BG 51-69 mg/dL and patient UNCONSCIOU S OR UNABLE TO SWALLOW OR NPO: Give 25 mL of D50W IV push and notify MD. Pkelsa Fry Epic heparin 50 units/mL in sodium chloride [...] MG tablet amiodarone (Pacerone) 200 MG tablet 2024-10-01 11:15: 00 Yes 200mg QD Take 200 [...] dose on Thu10/01/24 at 1115 Maxine Gill sodium chloride (NS) 0.9 % [...] administer up to 3 doses per episode. Maxine Gill furosemide (Lasix) injection 40 mg furosemide (Lasix) [...] 0900, Until Discontinu ed, Routine [facility] amiodarone (PACERONE) tablet 200 mg 09-20 15:00: 00 09-20 23:44 :21 No 200mg 200 mg, Oral, DAILY, First dose on Thu09/20/24 at 0900, Until Discontinu ed, Routine [facility] pantoprazol e (PROTONIX) EC tablet 40 mg 09-20 15:00: 00 09-20 23:44 :21 No 40mg 40 mg, Oral, DAILY, First dose on Thu09/20/24 at 0900, Until Discontinu ed, Routine [facility] KCL (KLOR-CON M20) tablet 40 mEq 09-20 13:45: 00 09-20 14:10 :00 No 40meq 40 mEq, Oral, ONCE, 1 dose, On Thu09/20/24 at 0745, [facility] at[facility] (LIPITOR) tablet 80 mg 09-20 03:00: 00 09-20 23:44 :21 No 80mg 80 mg, Oral, QHS, First dose on Thu09/19/24 at 2100, Until Discontinu ed, Routine [facility] busPIRone (BUSPAR) tablet 5 mg 09-20 02:00: 00 09-20 23:44 :21 No 5mg 5 mg, Oral, BID, First dose on Thu09/19/24 at 2000, Until Discontinu ed, Routine [facility] apixaban (ELIQUIS) tablet 5 mg 09-20 02:00: 00 09-20 23:44 :21 No 1358 5mg 5 mg, Oral, BID, First dose on Thu09/19/24 at 2000, Until Discontinu ed, Routine, Indication s: Non-Valvul ar Atrial Fibrillati on [facility] hydralAZINE (APRESOLINE ) injection 10 mg 09-19 21:12: 42 09-20 23:44 :21 No 10mg 10 mg, Slow IV Push, Q4HPRN, Starting on Thu09/19/24 at 1512, Until Thu09/20/24 at 1744, Routine, DBP=>100; SBP=>180 [facility] spironolact one (ALDACTONE) tablet 25 mg 09-19 20:00: 00 09-20 23:44 :21 No 25mg 25 mg, Oral, DAILY, First dose on Thu09/19/24 at 1400, Until Discontinu ed, Routine [facility] lisinopriL (PRINIVIL,Z ESTRIL) tablet 5 mg 09-19 20:00: 00 09-20 23:44 :21 No 5mg 5 mg, Oral, DAILY, First dose on Thu09/19/24 at 1400, Until Discontinu ed, Routine [facility] metoprolol succinate XL (TOPROL XL) tablet 12.5 mg 09-19 20:00: 00 09-20 23:44 :21 No 12.5mg 12.5 mg, Oral, DAILY, First dose on Thu09/19/24 at 1400, Until Discontinu ed, Routine [facility] gabapentin (NEURONTIN) capsule 100 mg 09-19 20:00: 00 09-20 23:44 :21 No 100mg 100 mg, Oral, TID, First dose on Thu09/19/24 at 1400, Until Discontinu ed, Routine [facility] ondansetron (ZOFRAN (PF)) injection 4 mg 09-19 19:53: 54 09-20 23:44 :21 No 4mg [facility] morphine (2 mg/mL) injection 2 mg 09-19 19:53: 48 09-20 19:52 :48 No 2mg 2 mg, Slow IV Push, Q4HPRN, Starting on Thu09/19/24 at 1353, Until Thu09/20/24 at 1352, Routine, Pain (scale 7-10) [facility] HYDROcodone -acetaminop hen (NORCO 5) tablet 1 tablet 09-19 19:53: 47 09-20 23:44 :21 No 1{tbl} 1 tablet, Oral, Q6HPRN, Starting on Thu09/19/24 at 1353, Until Thu09/20/24 at 1744, Routine, Pain (scale 4-6) [facility] acetaminoph en (TYLENOL) tablet 650 mg 09-19 19:53: 38 09-20 23:44 :21 No 650mg [facility] morpHINE (4 mg/mL) injection 4 mg 09-19 19:15: 00 09-19 19:14 :00 No 4mg 4 mg, Slow IV Push, ONCE, 1 dose, On Thu09/19/24 at 1315, STAT [facility] nitroglycer in (NITROSTAT) sublingual tablet 0.4 mg 09-19 17:15: 00 09-19 17:10 :00 No .4mg 0.4 mg, Sublingual , ONCE, 1 dose, On Thu09/19/24 at 1115, MJ [facility] furosemide (LASIX) injection 40 mg 09-19 17:15: 00 09-19 17:10 :00 No 40mg 40 mg, IV Push, ONCE, 1 dose, On Thu09/19/24 at 1115, MJ [facility] butorphanol (STADOL) injection 1 mg 09-18 23:45: 00 09-18 23:05 :00 No 1mg 1 mg, IV Push, ONCE, 1 dose, On Thu09/18/24 at 1745, MJ [facility] acetaminoph en-codeine (TYLENOL-CO DEINE #3) 300-30 mg tablet - 00:00: 00 Yes [id number] 1{tbl} Take 1 tablet by mouth 2 (two) times daily as needed for Pain (scale 4-6) or Pain (scale 7-10). Indication s: chronic pain, right knee pain [facility] atorvastati n (LIPITOR) tablet 80 mg 18 03:00: 00 08-19 23:01 :42 No 80mg [facility] sulfur hexafluorid e microsphr (LUMASON) injection 5 mL 08-19 16:30: 00 08-19 16:30 :00 No [id number] 5mL 5 mL, Intravenou s, ONCE, 1 dose, On Thu08/19/24 at 1030, [facility] sp[facility] (ALDACTONE) tablet 25 mg 08-19 15:00: 00 08-19 23:01 :42 No 25mg 25 mg, Oral, DAILY, First dose on Thu08/19/24 at 0900, Until Discontinu ed, Routine [facility] pantoprazol e (PROTONIX) EC tablet 40 mg 08-19 15:00: 00 08-19 23:01 :42 No 40mg 40 mg, Oral, DAILY, First dose on Thu08/19/24 at 0900, Until Discontinu ed [facility] metoprolol succinate XL (TOPROL XL) tablet 12.5 mg 08-19 15:00: 00 08-19 23:01 :42 No 12.5mg [facility] amiodarone (PACERONE) tablet 200 mg 08-19 15:00: 00 08-19 23:01 :42 No 200mg 200 mg, Oral, DAILY, First dose on Thu08/19/24 at 0900, Until Discontinu ed, Routine [facility] allopurinoL (ZYLOPRIM) tablet 300 mg 08-19 15:00: 00 08-19 23:01 :42 No 300mg 300 mg, Oral, QAM, First dose on Thu08/19/24 at 0900, Until Discontinu ed, Routine [facility] gabapentin (NEURONTIN) capsule 100 mg 08-19 14:00: 00 08-19 23:01 :42 No 100mg 100 mg, Oral, TID, First dose on Thu08/19/24 at 0800, Until Discontinu ed, Routine [facility] busPIRone (BUSPAR) tablet 5 mg 08-19 14:00: 00 08-19 23:01 :42 No 5mg 5 mg, Oral, BID, First dose on Thu08/19/24 at 0800, Until Discontinu ed, Routine [facility] apixaban (ELIQUIS) tablet 5 mg 08-19 14:00: 00 08-19 23:01 :42 No 1358 5mg 5 mg, Oral, BID, First dose on Thu08/19/24 at 0800, Until Discontinu ed, Routine, Indication s: Non-Valvul ar Atrial Fibrillati on [facility] methocarbam oL (ROBAXIN) tablet 500 mg 08-19 13:41: 27 08-19 23:01 :42 No 500mg [facility] ondansetron (ZOFRAN (PF)) injection 4 mg 08-19 09:06: 33 08-19 23:01 :42 No 4mg 4 mg, Slow IV Push, Q6HPRN, Starting on Thu08/19/24 at 0306, Until Thu08/19/24 at 1701, Administer over 2-5 Minutes, 2 mL [facility] morphine (2 mg/mL) injection 2 mg 08-19 09:06: 29 08-19 23:01 :42 No 2mg 2 mg, Slow IV Push, Q6HPRN, Starting on Thu08/19/24 at 0306, Until Thu08/19/24 at 1701, Routine, Pain (scale 7-10) [facility] HYDROcodone -acetaminop hen (NORCO 5) tablet 1 tablet 08-19 09:06: 24 08-19 23:01 :42 No 1{tbl} 1 tablet, Oral, Q6HPRN, Starting on Thu08/19/24 at 0306, Until Thu08/19/24 at 1701, Routine, Pain (scale 4-6) [facility] acetaminoph en (TYLENOL) tablet 650 mg 08-19 09:06: 23 08-19 23:01 :42 No 650mg 650 mg, Oral, Q6HPRN, Starting on Thu08/19/24 at 0306, Until Thu08/19/24 at 1701, Routine, Pain (scale 1-3) [facility] fentanyl PF (SUBLIMAZE (PF)) injection 50 mcg 08-19 03:45: 00 08-19 02:57 :00 No 50ug 50 mcg, Slow IV Push, ONCE, 1 dose, On Smiley 08/18/24 at 2145, MJ [facility] amiodarone 200 mg tablet 08-18 00:00: 00 09-29 00:00 :00 No [id number] 200mg Take 1 tablet by mouth in the morning. [facility] amiodarone 200 mg tablet 08-16 00:00: 00 08-18 00:00 :00 No [id number] 200mg Take 1 tablet by mouth in the morning. [facility] furosemide 40 mg tablet 08-15 00:00: 00 Yes [id number] 60mg Take 1.5 tablets by mouth in the morning. [facility] magnesium sulfate in water 4 gram/50 mL (8 %) IV Piggyback 4 g 08-14 17:30: 00 08-14 20:28 :00 No 4g 4 g, IV Piggyback, at 25 mL/hr Administer over 120 Minutes, ONCE, 1 dose, On Thu08/14/24 at 1130, Routine [facility] amiodarone (PACERONE) tablet 200 mg 08-14 16:45: 00 Yes 200mg 200 mg, Oral, DAILY, First dose on Thu08/14/24 at 1045, Until Discontinu ed, Routine [facility] apixaban (ELIQUIS) tablet 5 mg 08-13 17:45: 00 08-15 22:48 :54 No 5mg 5 mg, Oral, BID, First dose on 08/13/24 at 1145, Until Discontinu ed, Routine, Indication s: Non-Valvul ar Atrial Fibrillati on [facility] furosemide (LASIX) tablet 80 mg 08-13 17:45: 00 08-14 17:54 :00 No 80mg 80 mg, Oral, QAM+PM, First dose on 08/13/24 at 1145, Until Discontinu ed, Routine [facility] iron dextran (INFED) 1,000 mg in NaCl 0.9% (NS) 500 mL IV infusion 08-13 14:45: 00 08-13 22:00 :00 No 1000mg 1,000 mg, IV Infusion, ONCE, 1 dose, On 08/13/24 at 0845, Administer over 1 Hours, 500 mL [facility] iron dextran (INFED) 25 mg in NaCl 0.9% (NS) 100 mL IV piggyback 08-13 14:45: 00 08-13 18:14 :00 No 25mg 25 mg, IV Piggyback, ONCE, 1 dose, On 08/13/24 at 0845, Administer over 15 Minutes, 100 mL [facility] Sliding Scale Insulin - Lispro (HumaLOG) 08-13 14:00: 00 08-15 22:48 :54 No Subcutaneo us, TID MEALS+HS, First dose on 08/13/24 at 0800, Until Discontinu ed, Routine [facility] glucagon HCL injection 1 mg 08-13 13:43: 26 08-15 22:48 :54 No 1mg 1 mg, Intramuscu lar, PRN, Starting on 08/13/24 at 0743, Until 08/15/24 at 1648, MJ, Low blood sugar, Blood Glucose < or = 70 mg/dL and patient is NPO, unable to swallow or has mental changes. [facility] dextrose 50 % in water (D50W) injection 25 mL 08-13 13:43: 26 08-15 22:48 :54 No 25mL 25 mL, Slow IV Push, PRN, Starting on Thu08/13/24 at 0743, Until 08/15/24 at 1648, MJ, Blood Glucose < or = 70 mg/dL and patient is NPO, unable to swallow or has mental status changes. [facility] fentanyl PF (SUBLIMAZE (PF)) injection 25 mcg 08-13 05:44: 11 08-15 22:48 :54 No 25ug 25 mcg, Slow IV Push, Q3HPRN, 3 doses, Starting on Thu08/12/24 at 2344, Until Thu08/15/24 at 1648, Routine, Pain (scale 7-10), Pain that breaks through norco [facility] spironolact one (ALDACTONE) tablet 25 mg 08-13 03:45: 00 08-15 22:48 :54 No 25mg 25 mg, Oral, DAILY, First dose (after last reorder) on Thu08/12/24 at 2145, Until Discontinu ed, Routine [facility] metoprolol succinate XL (TOPROL XL) tablet 12.5 mg 08-13 03:45: 00 08-15 22:48 :54 No 12.5mg 12.5 mg, Oral, DAILY, First dose (after last reorder) on Thu08/12/24 at 2145, Until Discontinu ed, Routine [facility] lisinopriL (PRINIVIL,Z ESTRIL) tablet 5 mg 08-13 03:45: 00 08-15 22:48 :54 No 5mg 5 mg, Oral, DAILY, First dose (after last reorder) on Thu08/12/24 at 2145, Until Discontinu ed, Routine [facility] lidocaine 1% (XYLOCAINE) 10 mg/mL (1 %) injection 08-13 01:43: 29 08-13 02:55 :47 No ONCE INTRA PROCEDURE, Starting on Thu08/12/24 at 1943, Until Thu08/12/24 at 2055, Routine, CV Intraproce dure [facility] NaCl 0.9% (NS) IV infusion 250 mL 08-12 22:00: 00 08-15 22:48 :54 No [id number] 250mL at 20 mL/hr, IV Infusion, CONTINUOUS , Starting on Thu08/12/24 at 1600, Until Thu08/15/24 at 1648, Routine, KVO [facility] fentanyl PF (SUBLIMAZE (PF)) injection 08-12 21:30: 02 08-12 21:30 :02 No PRN, Starting on Thu08/12/24 at 1530, Until Thu08/12/24 at 1530, Routine, Intra-op [facility] midazolam (VERSED) injection 08-12 21:29: 55 08-12 21:29 :55 No PRN, Starting on Thu08/12/24 at 1529, Until Thu08/12/24 at 1529, Routine, Intra-op [facility] fentanyl PF (SUBLIMAZE (PF)) injection 08-12 21:22: 17 08-12 21:22 :17 No PRN, Starting on Thu08/12/24 at 1522, Until Thu08/12/24 at 1522, Routine, Intra-op [facility] midazolam (VERSED) injection 08-12 21:22: 12 08-12 21:22 :12 No PRN, Starting on Thu08/12/24 at 1522, Until Thu08/12/24 at 1522, Routine, Intra-op [facility] lidocaine 4% (XYLOCAINE) 4 % (40 mg/mL) topical solution 08-12 21:21: 21 08-12 21:21 :21 No PRN, Starting on Thu08/12/24 at 1521, Until Thu08/12/24 at 1521, Routine, Intra-op [facility] allopurinoL (ZYLOPRIM) tablet 300 mg 08-12 15:00: 00 08-15 22:48 :54 No 300mg 300 mg, Oral, QAM, First dose (after last modificati on) on Thu08/12/24 at 0900, Until Discontinu ed, Routine [facility] KCL (KLOR-CON M20) tablet 20 mEq 08-12 10:15: 08-12 10:33 :00 No 20meq 20 mEq, Oral, ONCE, 1 dose, On Thu08/12/24 at 0415, Routine [facility] perflutren protein-A microsphr (OPTISON) injection 3 mL 08-11 22:15: 00 08-11 22:15 :00 No [id number] 3mL 3 mL, IV Push, ONCE, 1 dose, On Thu08/11/24 at 1615, Routine [facility] sennosides (SENOKOT) tablet 8.6 mg 08-11 15:00: 00 08-15 22:48 :54 No 8.6mg 8.6 mg, Oral, DAILY, First dose on Thu08/11/24 at 0900, Until Discontinu ed, Routine [facility] pantoprazol e (PROTONIX) EC tablet 40 mg 08-11 15:00: 00 08-15 22:48 :54 No 40mg 40 mg, Oral, DAILY, First dose (after last modificati on) on Thu08/11/24 at 0900, Until Discontinu ed [facility] NaCl 0.9% (NS) bolus infusion 250 mL 08-11 05:30: 00 08-11 07:00 :00 No 250mL at 999 mL/hr, 250 mL, IV Piggyback, ONCE, 1 dose, On Thu08/10/24 at 2330, STAT [facility] cephALEXin (KEFLEX) capsule 500 mg 08-11 04:00: 00 08-13 01:59 :00 No 500mg 500 mg, Oral, QID, 8 doses, First dose on Thu08/10/24 at 2200, Last dose on Thu08/12/24 at 1600, MJ, Reason for Anti-Infec tive: Empiric Therapy for Suspected Infection, Empiric Therapy Site: Skin / Soft tissue, Duration of therapy: 72 hours [facility] atorvastati n (LIPITOR) tablet 80 mg 08-11 03:00: 00 08-15 22:48 :54 No 80mg 80 mg, Oral, QHS, First dose on Thu08/10/24 at 2100, Until Discontinu ed, Routine [facility] amiodarone (CORDARONE) 900 mg in NaCl 0.9% [...] must be administer ed via central line. [facility] aspirin chewable tablet 81 mg 08-10 15:00: 00 08-14 16:32 :14 No 81mg 81 mg, Oral, DAILY, First dose on Thu08/10/24 at 0900, Until Discontinu ed, Routine [facility] spironolact one (ALDACTONE) tablet 25 mg 08-10 15:00: 00 08-11 03:05 :45 No 25mg 25 mg, Oral, DAILY, First dose on Thu08/10/24 at 0900, Until Discontinu ed, Routine [facility] metoprolol succinate XL (TOPROL XL) tablet 12.5 mg 08-10 15:00: 00 08-11 03:51 :22 No 12.5mg 12.5 mg, Oral, DAILY, First dose on Thu08/10/24 at 0900, Until Discontinu ed, Routine [facility] allopurinoL (ZYLOPRIM) tablet 300 mg 08-10 15:00: 00 08-11 16:32 :25 No 300mg 300 mg, Oral, QAM, First dose on Thu08/10/24 at 0900, Until Discontinu ed, Routine [facility] lisinopriL (PRINIVIL,Z ESTRIL) tablet 5 mg 08-10 15:00: 00 08-10 21:32 :08 No 5mg 5 mg, Oral, DAILY, First dose on Thu08/10/24 at 0900, Until Discontinu ed, Routine [facility] gabapentin (NEURONTIN) capsule 100 mg 08-10 14:00: 00 08-15 22:48 :54 No 100mg 100 mg, Oral, TID, First dose on Thu08/10/24 at 0800, Until Discontinu ed, Routine [facility] busPIRone (BUSPAR) tablet 5 mg 08-10 14:00: 00 08-15 22:48 :54 No 5mg 5 mg, Oral, BID, First dose on Thu08/10/24 at 0800, Until Discontinu ed, Routine [facility] lidocaine-p rilocaine (EMLA) 2.5-2.5 % cream 08-10 14:00: 00 08-15 13:24 :29 No Topical, BID, First dose on Thu08/10/24 at 0800, Until Discontinu ed, Routine [facility] pantoprazol e (PROTONIX) EC tablet 40 mg 08-10 14:00: 00 08-11 03:16 :04 No 40mg 40 mg, Oral, BID, First dose on Thu08/10/24 at 0800, Until Discontinu ed [facility] proCHLORper azine (COMPAZINE) injection 5 mg 08-10 04:13: 12 08-15 22:48 :54 No 5mg 5 mg, Slow IV Push, Q6HPRN, Starting on Thu08/09/24 at 2213, Until Thu08/15/24 at 1648, Routine, N/V unresponsi ve to Ondansetro n [facility] methocarbam oL (ROBAXIN) tablet 500 mg 08-10 03:09: 51 08-15 22:48 :54 No 500mg 500 mg, Oral, TIDPRN, Starting on Thu08/09/24 at 2109, Until Thu08/15/24 at 1648, Routine, Muscle Spasms [facility] acetaminoph en (TYLENOL) tablet 650 mg 08-10 02:20: 57 08-15 22:48 :54 No 650mg 650 mg, Oral, Q8HPRN, Starting on Thu08/09/24 at 2020, Until Thu08/15/24 at 1648, Routine, Pain (scale 1-3) [facility] HYDROcodone -acetaminop hen (NORCO 5) tablet 1 tablet 08-10 02:20: 26 08-15 22:48 :54 No 1{tbl} 1 tablet, Oral, Q6HPRN, Starting on Thu08/09/24 at 2020, Until Thu08/15/24 at 1648, Routine, Pain (scale 7-10) [facility] heparin 25,000 Units/250 mL (Premixed Bag) in [...] ant therapy. Range, Dosing and Testing: FOR [facility], [facility] ONLY - aPTT < 35: Bolus [...] once therapeuti c levels are reached. FOR [facility] ONLY - aPTT < 40: Bolus [...] INITIAL BOLUS OR INITIAL INFUSION RATE. [facility] ondansetron (ZOFRAN (PF)) injection 4 mg 08-10 01:48: 12 08-15 22:48 :54 No 4mg 4 mg, Slow IV Push, Q6HPRN, Nausea and Vomiting (N/V), Starting on Thu08/09/24 at 1948, Please give medication over 2-5 minutes. [facility] ondansetron (ZOFRAN (PF)) injection 4 mg 08-09 21:30: 00 08-09 20:22 :00 No 4mg 4 mg, Slow IV Push, ONCE, 1 dose, On Thu08/09/24 at 1530, 2 mL [facility] fentanyl PF (SUBLIMAZE (PF)) injection 50 mcg 08-09 21:30: 00 08-09 20:22 :00 No 50ug 50 mcg, Slow IV Push, ONCE, 1 dose, On Thu08/09/24 at 1530, Routine [facility] amiodarone 150 mg/100 mL (NEXTERONE) RTU infusion 150 mg 08-09 20:15: 00 08-09 19:56 :00 No 150mg 150 mg, IV Piggyback, ONCE, 1 dose, On Thu08/09/24 at 1415, Administer over 10 Minutes, 100 mL [facility] cephALEXin (KEFLEX) capsule 500 mg 2023-08 02:00: 00 08-12 01:59 :00 Yes 500mg 500 mg, Oral, QID, 40 doses, First dose on Thu08/01/24 at 2000, Last dose on Thu08/11/24 at 1600, MJ, Reason for Anti-Infec tive: Documented Infection, Documented Infection Site: Skin / Soft Tissue, Duration of Therapy: 10 days [facility] spironolact one (ALDACTONE) tablet 25 mg 2023-08 15:00: 00 08-02 01:49 :06 No 25mg 25 mg, Oral, DAILY, First dose on Thu08/01/24 at 0900, Until Discontinu ed, Routine [facility] metoprolol succinate XL (TOPROL XL) tablet 12.5 mg 2023-08 15:00: 00 08-02 01:49 :06 No 12.5mg 12.5 mg, Oral, DAILY, First dose on Thu08/01/24 at 0900, Until Discontinu ed, Routine [facility] lisinopriL (PRINIVIL,Z ESTRIL) tablet 5 mg 2023-08 15:00: 00 08-02 01:49 :06 No 5mg 5 mg, Oral, DAILY, First dose on Thu08/01/24 at 0900, Until Discontinu ed, Routine [facility] aspirin chewable tablet 81 mg 2023-08 15:00: 00 08-02 01:49 :06 No 81mg 81 mg, Oral, DAILY, First dose on Thu08/01/24 at 0900, Until Discontinu ed, Routine [facility] allopurinoL (ZYLOPRIM) tablet 300 mg 2023-08 15:00: 00 08-02 01:49 :06 No 300mg 300 mg, Oral, QAM, First dose on Thu08/01/24 at 0900, Until Discontinu ed, [facility] 2 gram/50 mL (4 %) infusion 2 g 2023-08 12:45: 00 08-01 19:05 :00 No 2g 2 g, IV Piggyback, Administer over 60 Minutes, ONCE, 1 dose, On Thu08/01/24 at 0645, Routine [facility] HYDROcodone -acetaminop hen (NORCO 5) tablet 1 tablet 2023-08 03:18: 27 08-02 01:49 :06 No 1{tbl} 1 tablet, Oral, Q6HPRN, Starting on Thu07/31/24 at 2118, Until Thu08/01/24 at 1949, Routine, Pain (scale 4-6), Pain (scale 7-10) [facility] Sliding Scale Insulin - Lispro (HumaLOG) 2023-08 03:00: 00 08-02 01:49 :06 No Subcutaneo us, TID MEALS+HS, First dose on Thu07/31/24 at 2100, Until Discontinu ed, Routine [facility] atorvastati n (LIPITOR) tablet 80 mg 2023-08 03:00: 00 08-02 01:49 :06 No 80mg 80 mg, Oral, QHS, First dose on Thu07/31/24 at 2100, Until Discontinu ed, Routine [facility] magnesium sulfate in water 2 gram/50 mL (4 %) infusion 2 g 2023-08 02:30: 00 08-01 03:21 :00 No 2g 2 g, IV Piggyback, Administer over 60 Minutes, ONCE, 1 dose, On Thu07/31/24 at 2030, Routine [facility] pantoprazol e (PROTONIX) EC tablet 40 mg 2023-08 02:00: 00 08-02 01:49 :06 No 40mg 40 mg, Oral, BID, First dose on Thu07/31/24 at 2000, Until Discontinu ed [facility] gabapentin (NEURONTIN) capsule 100 mg 2023-08 02:00: 00 08-02 01:49 :06 No 100mg 100 mg, Oral, TID, First dose on Thu07/31/24 at 2000, Until Discontinu ed, Routine [facility] busPIRone (BUSPAR) tablet 5 mg 2023-08 02:00: 00 08-02 01:49 :06 No 5mg 5 mg, Oral, BID, First dose on Thu07/31/24 at 2000, Until Discontinu ed, Routine [facility] furosemide (LASIX) tablet 80 mg 2023-08 01:00: 00 08-02 01:49 :06 No 80mg 80 mg, Oral, QAM+PM, First dose (after last modificati on) on Thu07/31/24 at 1900, Until Discontinu ed, Routine [facility] glucagon HCL injection 1 mg 2023-08 00:52: 29 08-02 01:49 :06 No 1mg 1 mg, Intramuscu lar, PRN, Starting on Thu07/31/24 at 1852, Until Thu08/01/24 at 1949, MJ, Low blood sugar, Blood Glucose < or = 70 mg/dL and patient is NPO, unable to swallow or has mental changes. [facility] dextrose 50 % in water (D50W) injection 25 mL 2023-08 00:52: 29 08-02 01:49 :06 No 25mL 25 mL, Slow IV Push, PRN, Starting on Thu07/31/24 at 1852, Until 08/01/24 at 1949, MJ, Blood Glucose < or = 70 mg/dL and patient is NPO, unable to swallow or has mental status changes. [facility] methocarbam oL (ROBAXIN) tablet 500 mg 2023-08 00:09: 22 08-02 01:49 :06 No 500mg [facility] acetaminoph en (TYLENOL) tablet 650 mg 2023-08 00:02: 09 08-02 01:49 :06 No 650mg 650 mg, Oral, Q6HPRN, Starting on Thu07/31/24 at 1802, Until Thu08/01/24 at 194, Routine, Pain (scale 1-3) [facility] cephALEXin 500 mg capsule 2023-08 00:00: 00 08-15 00:00 :00 No [id number] 500mg Take 1 capsule by mouth 4 (four) times daily for 10 days. [facility] lisinopriL 5 mg tablet 2023-08 00:00: 00 Yes [id number] 5mg Take 1 tablet by mouth in the morning. [facility] metoprolol succinate XL 25 mg 24 hr tablet 2023-08 00:00: 00 Yes [id number] 12.5mg Take 1/2 (one-half) tablet by mouth in the morning. [facility] furosemide (LASIX) tablet 80 mg 2023-08 15:00: 00 Yes 80mg 80 mg, Oral, QAM+PM, First dose on Smiley 07/21/24 at 0900, Until Discontinu ed, Routine [facility] atorvastati n 80 mg tablet 2023-08 00:00: 00 Yes [id number] 80mg Take 1 tablet by mouth at bedtime. [facility] furosemide 80 mg tablet 2023-08 00:00: 00 08-15 00:00 :00 No [id number] 80mg Take 1 tablet by mouth every morning and evening. [facility] morpHINE injection 2 mg 2023-08 19:14: 24 07-21 23:16 :35 No 2mg 2 mg, Slow IV Push, Q6HPRN, Starting on Thu07/20/24 at 1314, Until Smiley 07/21/24 at 1716, Routine, Pain (scale 7-10) [facility] apixaban (ELIQUIS) tablet 5 mg 2023-08 16:30: 00 07-21 23:16 :35 No 5mg 5 mg, Oral, BID, First dose on Thu07/20/24 at 1030, Until Discontinu ed, Routine, Indication s: Non-Valvul ar Atrial Fibrillati on [facility] NaCl 0.9% (NS) PEDIATRIC IV infusion 2023-08 05:30: 00 07-20 15:29 :00 No IV Infusion, at 50 mL/hr, CONTINUOUS , Starting on Thu07/19/24 at 2330, Until Thu07/20/24 at 0929, Routine [facility] heparin 25,000 Units/250 mL (Premixed Bag) [...] ant therapy. Range, Dosing and Testing: FOR [facility], [facility] ONLY - aPTT < 35: Bolus [...] once therapeuti c levels are reached. FOR [facility] ONLY - aPTT < 40: Bolus [...] INITIAL BOLUS OR INITIAL INFUSION RATE. [facility] heparin 1000 unit/mL injection Soln 5,000 Units 2023-08 05:00: 00 07-20 05:26 :00 No 5000U 5,000 Units, IV Push, ONCE, 1 dose, On Thu07/19/24 at 2300, Routine [facility] sodium zirconium cyclosilica te (LOKELMA) 10 gram packet 2023-08 00:00: 00 07-21 00:00 :00 No [id number] 10g Take 10 g by mouth QAM-0700. [facility] lidocaine 1% (PF) (XYLOCAINE) injection 2023-08 23:09: 05 07-20 00:00 :38 No ONCE INTRA PROCEDURE, Starting on Thu07/19/24 at 1709, Until Thu07/19/24 at 1800, Routine, CV Intraproce dure [facility] insulin lispro (human) (HumaLOG U-100) injection 2 Units 2023-08 19:52: 44 07-21 23:16 :35 No 2U 2 Units, Subcutaneo us, PRN - SEE INSTRUCTIO NS, 1 dose, Starting on Thu07/19/24 at 1352, Until Thu07/21/24 at 1716, Routine, For blood glucose > 300 mg/dL [facility] dextrose 10% (D10W) bolus infusion 125 [...] carb snack - Sprite or cranberry juice. [facility] sodium zirconium cyclosilica te (LOKELMA) 10 gram packet 10 g 2023-08 18:00: 00 07-20 21:03 :27 No 10g 10 g, Oral, QAM-0700, 3 doses, First dose (after last modificati on) on Thu07/19/24 at 1200, Last dose on Thu07/21/24 at 0700, Routine [facility] insulin regular human (HUMULIN R) injection 10 Units 2023-08 18:00: 00 07-19 18:32 :00 No 10U 10 Units, IV Push, ONCE, 1 dose, On Thu07/19/24 at 1200, MJ, Indication for insulin: Hyperkalem ia- Please use the Insulin Protocol for Hyperkalem ia order set [facility] dextrose 50 % in water (D50W) injection 50 mL 2023-08 18:00: 00 07-19 18:31 :00 No 50mL 50 mL, Slow IV Push, ONCE, 1 dose, On Thu07/19/24 at 1200, MJ [facility] calcium gluconate 2 g in NaCl 100 mL (ISO-OSM) RTU IV infusion 2 g 2023-08 17:52: 37 07-20 17:51 :37 Yes 2g 2 g, IV Infusion, at 200 mL/hr Administer over 30 Minutes, PRN - SEE INSTRUCTIO NS, Starting on Thu07/19/24 at 1152, Until Thu07/20/24 at 1151, STAT, Potassium greater than or equal to 6.0 mEq/L with our without EKG changes [facility] glucagon HCL injection 1 mg 2023-08 17:52: 20 07-21 23:16 :35 No 1mg 1 mg, Intramuscu lar, PRN, Starting on Thu07/19/24 at 1152, Until Smiley 07/21/24 at 1716, MJ, Low blood sugar, Blood Glucose < or = 70 mg/dL and patient is NPO, unable to swallow or has mental changes. [facility] dextrose 50 % in water (D50W) injection 25 mL 2023-08 17:52: 20 07-21 23:16 :35 No 25mL 25 mL, Slow IV Push, PRN, Starting on Thu07/19/24 at 1152, Until Smiley 07/21/24 at 1716, MJ, Blood Glucose < or = 70 mg/dL and patient is NPO, unable to swallow or has mental status changes. [facility] furosemide (LASIX) injection 80 mg 2023-08 14:00: 00 07-20 04:26 :15 No 80mg 80 mg, Slow IV Push, TID, First dose on Thu07/19/24 at 0800, Until Discontinu ed, Routine [facility] ceFAZolin (ANCEF) 1,000 mg in water for injection, sterile 10 mL IV push 2023-08 00:33: 41 07-19 01:12 :09 No ONCE INTRA PROCEDURE, Starting on Thu07/18/24 at 1833, Until Thu07/18/24 at 1912, MJ, CV Intraproce dure [facility] lidocaine 1% (PF) (XYLOCAINE) injection 2023-08 00:27: 00 07-19 01:12 :09 No ONCE INTRA PROCEDURE, Starting on Thu07/18/24 at 1827, Until Thu07/18/24 at 191, Routine, CV Intraproce dure [facility] fentanyl PF (SUBLIMAZE (PF)) injection 2023-08 00:25: 15 07-19 01:12 :10 No ONCE INTRA PROCEDURE, Starting on Thu07/18/24 at 1825, Until Thu07/18/24 at 191, Routine, CV Intraproce dure [facility] midazolam (VERSED) injection 2023-08 00:25: 05 07-19 01:12 :10 No ONCE INTRA PROCEDURE, Starting on Thu07/18/24 at 1825, Until Thu07/18/24 at 191, Routine, CV Intraproce dure [facility] xenon - 133 (XENON) inhalation 8.3 millicurie 2023-08 18:00: 00 07-18 17:50 :00 No [id number] 8.3mCi 8.3 millicurie , Inhalation , ONCE, 1 dose, On Thu07/18/24 at 1200, Routine [facility] tc 99m-albumin (DRAXIMAGE MAA) injection 3.2 millicurie 2023-08 18:00: 00 07-18 18:00 :00 No [id number] 3.2mCi 3.2 millicurie , Intravenou s, ONCE, 1 dose, On Thu07/18/24 at 1200, Routine [facility] heparin 25,000 Units/250 mL (Premixed Bag) in D5W 2023-08 07:45: 00 07-19 03:15 :21 No 0U/h 0-3,200 Units/hr (0-32 mL/hr), IV Infusion, CONTINUOUS , Starting on 07/18/24 at 0145, Initiate infusion at 1,000 Units/hr [...] ant therapy. Range, Dosing and Testing: FOR [facility] - aPTT < 35: Bolus 5000 [...] once therapeuti c levels are reached. FOR [facility] ONLY - aPTT < 40: Bolus [...] INITIAL BOLUS OR INITIAL INFUSION RATE. [facility] HYDROcodone -acetaminop hen (NORCO) 10-325 mg tablet 1 tablet 2023-08 23:40: 28 07-21 19:45 :04 No 1{tbl} 1 tablet, Oral, Q6HPRN, Starting on 07/17/24 at 1740, Until Smiley 07/21/24 at 1345, Routine, Pain (scale 4-6) [facility] morpHINE injection 4 mg 2023-08 23:40: 15 07-20 19:14 :54 No 4mg 4 mg, Slow IV Push, Q3HPRN, Starting on Thu07/17/24 at 1740, Until Thu07/20/24 at 1314, Routine, Pain (scale 7-10), Chest pain [facility] magnesium sulfate in water 4 gram/50 mL (8 %) IV Piggyback 4 g 2023-08 13:30: 00 07-17 17:18 :00 No 4g 4 g, IV Piggyback, at 25 mL/hr Administer over 120 Minutes, ONCE, 1 dose, On Thu07/17/24 at 0730, Routine [facility] KCL (KLOR-CON M20) tablet 40 mEq 2023-08 12:45: 00 07-17 16:44 :00 No 40meq 40 mEq, Oral, Q2H ES, 2 doses, First dose on Thu07/17/24 at 0645, Last dose on Thu07/17/24 at 0845, Routine [facility] atorvastati n (LIPITOR) tablet 80 mg 2023-08 03:00: 00 Yes 80mg 80 mg, Oral, QHS, First dose (after last modificati on) on 07/16/24 at 2100, Until Discontinu ed, Routine [facility] KCL (KLOR-CON M20) tablet 40 mEq 2023-08 15:15: 00 07-16 15:17 :00 No 40meq 40 mEq, Oral, ONCE, 1 dose, On 07/16/24 at 0915, Routine [facility] metoprolol succinate XL (TOPROL XL) tablet 12.5 mg 2023-08 15:00: 00 Yes 12.5mg 12.5 mg, Oral, DAILY, First dose on 07/16/24 at 0900, Until Discontinu ed, Routine [facility] KCL (KLOR-CON M20) tablet 40 mEq 2023-08 12:45: 00 07-16 12:08 :00 No 40meq 40 mEq, Oral, ONCE, 1 dose, On 07/16/24 at 0645, Routine [facility] heparin 25,000 Units/250 mL (Premixed Bag) in [...] ant therapy. Range, Dosing and Testing: FOR [facility] ONLY - aPTT < 35: Bolus [...] once therapeuti c levels are reached. FOR [facility] ONLY - aPTT < 40: Bolus [...] INITIAL BOLUS OR INITIAL INFUSION RATE. [facility] HYDROcodone -acetaminop hen (NORCO 5) tablet 1 tablet 2023-08 19:45: 00 07-15 19:18 :00 No 1{tbl} 1 tablet, Oral, ONCE, 1 dose, On Thu07/15/24 at 1345, Routine [facility] Lidocaine (LIDOCARE) 4 % patch 1 Patch 2023-08 18:30: 00 07-16 07:22 :00 No 1{patch } 1 Patch, Topical, Administer over 12 Hours, ONCE, 1 dose, On Thu07/15/24 at 1230, Routine [facility] HYDROcodone -acetaminop hen (NORCO 5) tablet 1 tablet 2023-08 18:30: 00 07-15 17:45 :00 No 1{tbl} 1 tablet, Oral, ONCE, 1 dose, On Thu07/15/24 at 1230, Routine [facility] nitroglycer in (NITROSTAT) sublingual tablet 0.4 mg 2023-08 17:50: 08 07-21 23:16 :35 No .4mg 0.4 mg, Sublingual , Q5MIN PRN, Starting on Thu07/15/24 at 1150, Until [facility] 07/21/24 at 1716, Routine, Chest pain [facility] HYDROcodone -acetaminop hen (NORCO) 10-325 mg tablet 1 tablet 2023-08 17:37: 43 07-17 23:40 :41 No 1{tbl} 1 tablet, Oral, Q6HPRN, Starting on Thu07/15/24 at 1137, Until [place] 07/17/24 at 1740, Routine, Pain (scale 7-10) [facility] morpHINE injection 2 mg 2023-08 11:15: 00 07-15 10:27 :00 No 2mg 2 mg, Slow IV Push, ONCE, 1 dose, On Thu07/15/24 at 0515, Routine [facility] magnesium sulfate in water 2 gram/50 mL (4 %) infusion 2 g 2023-08 10:30: 00 07-15 11:28 :00 No 2g 2 g, IV Piggyback, Administer over 60 Minutes, ONCE, 1 dose, On Thu07/15/24 at 0430, Routine [facility] KCL (KLOR-CON M10) tablet 30 mEq 2023-08 10:30: 00 07-15 10:27 :00 No 30meq 30 mEq, Oral, ONCE, 1 dose, On Thu07/15/24 at 0430, Routine [facility] morpHINE injection 2 mg 2023-08 05:45: 00 07-15 05:05 :00 No 2mg 2 mg, Slow IV Push, ONCE, 1 dose, On [place] 07/14/24 at 2345, Routine [facility] ramelteon (ROZEREM) tablet 8 mg 2023-08 05:00: 00 07-21 23:16 :35 No 8mg 8 mg, Oral, QHS, First dose on [place] 07/14/24 at 2300, Until Discontinu ed, Routine [facility] morpHINE injection 2 mg 2023-08 01:15: 00 07-15 00:40 :00 No 2mg 2 mg, Slow IV Push, ONCE, 1 dose, On [place] 07/14/24 at 1915, Routine [facility] furosemide (LASIX) injection 80 mg 2023-08 20:00: 00 07-18 15:37 :38 No 80mg 80 mg, Slow IV Push, Q8H, First dose (after last modificati on) on [place] 07/14/24 at 1400, Until Discontinu ed, Routine [facility] KCL (KLOR-CON M20) tablet 40 mEq 2023-08 16:00: 00 07-14 15:32 :00 No 40meq 40 mEq, Oral, ONCE, 1 dose, On [place] 07/14/24 at 1000, Routine [facility] sulfur hexafluorid e microsphr (LUMASON) injection 5 mL 2023-08 15:45: 00 07-14 15:45 :00 No [id number] 5mL 5 mL, Intravenou s, ONCE, 1 dose, On [place] 07/14/24 at 0945, Routine [facility] spironolact one (ALDACTONE) tablet 25 mg 2023-08 15:00: 00 07-21 23:16 :35 No 25mg 25 mg, Oral, DAILY, First dose on [place] 07/14/24 at 0900, Until Discontinu ed, Routine [facility] pantoprazol e (PROTONIX) EC tablet 40 mg 2023-08 15:00: 00 07-21 23:16 :35 No 40mg 40 mg, Oral, DAILY, First dose on Thu07/14/24 at 0900, Until Discontinu ed [facility] aspirin chewable tablet 81 mg 2023-08 15:00: 00 07-21 23:16 :35 No 81mg 81 mg, Oral, DAILY, First dose on [place] 07/14/24 at 0900, Until Discontinu ed, Routine [facility] allopurinoL (ZYLOPRIM) tablet 300 mg 2023-08 15:00: 00 07-21 23:16 :35 No 300mg 300 mg, Oral, QAM, First dose on Thu07/14/24 at 0900, Until Discontinu ed, Routine [facility] empaglifloz in (JARDIANCE) tablet 10 mg 2023-08 15:00: 00 07-17 16:08 :50 No 10mg 10 mg, Oral, DAILY, First dose on Thu07/14/24 at 0900, Until Discontinu ed, Routine, Please provide rationale if you wish to continue with this order; if patient has diabetes, consult endocrinol ogy. for HF, home med [facility] furosemide (LASIX) injection 40 mg 2023-08 12:00: 00 07-14 14:38 :43 No 40mg 40 mg, Slow IV Push, Q8H, First dose (after last modificati on) on Thu07/14/24 at 0600, Until Discontinu ed, Routine [facility] KCL (KLOR-CON M20) tablet 40 mEq 2023-08 09:15: 00 07-14 10:24 :00 No 40meq 40 mEq, Oral, ONCE, 1 dose, On Thu07/14/24 at 0315, Routine [facility] Potassium Bicarb-Citr ic Acid (EFFER-K) effervescen t tablet 40 mEq 2023-08 08:00: 00 07-14 08:20 :53 No 40meq 40 mEq, Oral, Q2H, 2 doses, First dose on Thu07/14/24 at 0200, Last dose on Thu07/14/24 at 0400, Routine [facility] morpHINE injection 2 mg 2023-08 07:00: 00 07-14 06:14 :00 No 2mg 2 mg, Slow IV Push, ONCE, 1 dose, On Thu07/14/24 at 0100, Routine [facility] Sliding Scale Insulin - Lispro (HumaLOG) 2023-08 03:00: 00 07-21 23:16 :35 No Subcutaneo us, TID MEALS+HS, First dose on Thu07/13/24 at 2100, Until Discontinu ed, Routine [facility] atorvastati n (LIPITOR) tablet 40 mg 2023-08 03:00: 00 07-16 16:39 :37 No 40mg 40 mg, Oral, QHS, First dose on Thu07/13/24 at 2100, Until Discontinu ed, Routine [facility] HYDROcodone -acetaminop hen (NORCO 5) tablet 1 tablet 2023-08 02:37: 26 07-15 17:38 :11 No 1{tbl} 1 tablet, Oral, Q6HPRN, Starting on Thu07/13/24 at 2037, Until Thu07/15/24 at 1138, Routine, Pain (scale 7-10) [facility] gabapentin (NEURONTIN) capsule 100 mg 2023-08 02:00: 00 07-21 23:16 :35 No 100mg 100 mg, Oral, TID, First dose on Thu07/13/24 at 2000, Until Discontinu ed, Routine [facility] busPIRone (BUSPAR) tablet 5 mg 2023-08 02:00: 00 07-21 23:16 :35 No 5mg 5 mg, Oral, BID, First dose on Thu07/13/24 at 2000, Until Discontinu ed, Routine [facility] glucagon HCL injection 1 mg 2023-08 01:15: 50 07-21 23:16 :35 No 1mg 1 mg, Intramuscu lar, PRN, Starting on Thu07/13/24 at 1915, Until [place] 07/21/24 at 1716, MJ, Low blood sugar, Blood Glucose < or = 70 mg/dL and patient is NPO, unable to swallow or has mental changes. [facility] dextrose 50 % in water (D50W) injection 25 mL 2023-08 01:15: 50 07-21 23:16 :35 No 25mL 25 mL, Slow IV Push, PRN, Starting on Thu07/13/24 at 1915, Until [place] 07/21/24 at 1716, MJ, Blood Glucose < or = 70 mg/dL and patient is NPO, unable to swallow or has mental status changes. [facility] lisinopriL (PRINIVIL,Z ESTRIL) tablet 5 mg 2023-08 00:45: 00 Yes 5mg 5 mg, Oral, DAILY, First dose on Thu07/13/24 at 1845, Until Discontinu ed, Routine [facility] potassium bicarb-citr ic acid (EFFER-K) effervescen t tablet 10 mEq 2023-08 00:45: 00 07-14 00:30 :00 No 10meq 10 mEq, Oral, ONCE, 1 dose, On Thu07/13/24 at 1845, Routine [facility] methocarbam oL (ROBAXIN) tablet 500 mg 2023-08 00:31: 25 07-21 23:16 :35 No 500mg 500 mg, Oral, TIDPRN, Starting on Thu07/13/24 at 1831, Until [place] 07/21/24 at 1716, Routine, Muscle Spasms [facility] magnesium sulfate in water 4 gram/50 mL (8 %) IV Piggyback 4 g 2023-08 00:30: 00 07-14 02:59 :00 No 4g 4 g, IV Piggyback, at 25 mL/hr Administer over 120 Minutes, ONCE, 1 dose, On Thu07/13/24 at 1830, Routine [facility] furosemide (LASIX) injection 40 mg 2023-08 00:30: 00 07-14 00:50 :00 No 40mg 40 mg, Slow IV Push, ONCE, 1 dose, On Thu07/13/24 at 1830, [facility] Units/250 mL (Premixed Bag) [...] ant therapy. Range, Dosing and Testing: FOR [place], [facility], AND [facility] ONLY - aPTT < 35: [...] ADJUST INITIAL BOLUS OR INITIAL INFUSION RATE. [facility] HEPARIN SODIUM (PORCINE) 1,000 UNIT/ML BOLUS ACS ORDER SET 2023-08 00:00: 00 07-14 01:05 :00 No 4000U 4,000 Units, IV Push, ONCE, 1 dose, [facility] Thu07/13/24 at 1800[facility]amin[facility] ([facility]OL[facility] 650 mg 2023-08 23:34: 58 07-21 23:16 :35 No 650mg 650 mg, Oral, Q6HPRN, Starting on Thu07/13/24 at 1734, Until Thu07/21/24 at 1716, Routine, Pain (scale 1-3) [facility] hydralAZINE (APRESOLINE ) injection 5 mg 2023-08 21:15: 00 07-13 21:20 :00 No 5mg 5 mg, Slow IV Push, ONCE, 1 dose, On Thu07/13/24 at 1515, [facility] HYDROcodone -acetaminop hen (NORCO 5) tablet 1 tablet 2023-08 21:15: 00 07-13 21:06 :00 No 1{tbl} 1 tablet, Oral, ONCE, 1 dose, On Thu07/13/24 at 1515, [facility] hydralAZINE (APRESOLINE ) injection 10 mg 2023-08 18:15: 00 07-13 18:22 :00 No 10mg 10 mg, Slow IV Push, ONCE, 1 dose, On Thu07/13/24 at 1215, MJ [facility] KCL (KLOR-CON M20) tablet 40 mEq 2023-08 16:00: 00 07-04 18:03 :00 No 40meq 40 mEq, Oral, ONCE, 1 dose, On Thu07/04/24 at 1000, Routine [facility] spironolact one (ALDACTONE) tablet 25 mg 2023-08 15:00: 00 07-04 18:30 :44 No 25mg 25 mg, Oral, DAILY, First dose on Thu07/04/24 at 0900, Until Discontinu ed, Routine [facility] pantoprazol e (PROTONIX) EC tablet 40 mg 2023-08 15:00: 00 07-04 18:30 :44 No 40mg 40 mg, Oral, DAILY, First dose on Thu07/04/24 at 0900, Until Discontinu ed, Routine [facility] aspirin chewable tablet 81 mg 2023-08 15:00: 00 07-04 18:30 :44 No 81mg 81 mg, Oral, DAILY, First dose on Thu07/04/24 at 0900, Until Discontinu ed, Routine [facility] furosemide (LASIX) tablet 40 mg 2023-08 14:00: 00 07-04 18:30 :44 No 40mg 40 mg, Oral, TID, First dose on Thu07/04/24 at 0800, Until Discontinu ed, Routine [facility] heparin (porcine) injection 5,000 Units 2023-08 12:00: 00 07-04 18:30 :44 No 5000U 5,000 Units, Subcutaneo us, Q8H, First dose on Thu07/04/24 at 0600, Until Discontinu ed, Routine [facility] atorvastati n (LIPITOR) tablet 40 mg 2023-08 03:00: 00 07-04 18:30 :44 No 40mg 40 mg, Oral, QHS, First dose on 07/03/24 at 2100, Until Discontinu ed, Routine [facility] Sliding Scale Insulin - Lispro (HumaLOG) 2023-08 03:00: 00 07-04 18:30 :44 No [facility] gabapentin (NEURONTIN) capsule 100 mg 2023-08 02:00: 00 07-04 18:30 :44 No 100mg 100 mg, Oral, TID, First dose on 07/03/24 at 2000, Until Discontinu ed, Routine [facility] busPIRone (BUSPAR) tablet 5 mg 2023-08 02:00: 00 07-04 18:30 :44 No 5mg 5 mg, Oral, BID, First dose on 07/03/24 at 2000, Until Discontinu ed, Routine [facility] furosemide (LASIX) injection 40 mg 2023-08 01:15: 00 07-04 01:44 :00 No 40mg 40 mg, Slow IV Push, ONCE, 1 dose, On 07/03/24 at 1915, Routine [facility] carvediloL (COREG) tablet 25 mg 2023-08 00:30: 00 07-04 18:30 :44 No 25mg 25 mg, Oral, BID MEALS, First dose on 07/03/24 at 1830, Until Discontinu ed, Routine [facility] ondansetron (ZOFRAN (PF)) injection 4 mg 2023-08 00:30: 00 07-03 23:35 :00 No 4mg 4 mg, Slow IV Push, ONCE, 1 dose, On 07/03/24 at 1830, 2 mL [facility] fentanyl PF (SUBLIMAZE (PF)) injection 50 mcg 2023-08 00:30: 00 07-03 23:34 :00 No 50ug 50 mcg, Slow IV Push, ONCE, 1 dose, On 07/03/24 at 1830, Routine [facility] glucagon HCL injection 1 mg 2023-08 00:27: 16 07-04 18:30 :44 No 1mg [facility] dextrose 50 % in water (D50W) injection 25 mL 2023-08 00:27: 16 07-04 18:30 :44 No [facility] ondans[facility] (ZOFRAN (PF)) injection 4 mg 2023-08 00:27: 11 07-04 18:30 :44 No 4mg [facility] HYDROcodone -acetaminop hen (NORCO 5) tablet 1 tablet 2023-08 00:27: 08 07-04 18:30 :44 No 1{tbl} [facility] morphine (2 mg/mL) injection 2 mg 2023-08 00:27: 03 07-04 18:30 :44 No 2mg [facility] acetaminoph en (TYLENOL) tablet 650 mg 2023-08 00:26: 56 07-04 18:30 :44 No 650mg [facility] heparin 25,000 Units/250 mL (Premixed Bag) in [...] ant therapy. Range, Dosing and Testing: FOR [place], [facility], AND [facility] ONLY - aPTT < 35: Bolus [...] once therapeuti c levels are reached. FOR [facility] ONLY - aPTT < 40: Bolus [...] INITIAL BOLUS OR INITIAL INFUSION RATE. [facility] labetaloL (NORMODYNE) 5 mg/mL injection 10 mg 2023-08 23:15: 00 07-03 23:38 :00 No 10mg 10 mg, Slow IV Push, ONCE, 1 dose, On 07/03/24 at 1715, MJ [facility] HEPARIN SODIUM (PORCINE) 1,000 UNIT/ML BOLUS ACS ORDER SET 2023-08 23:15: 00 07-03 23:39 :00 No 4000U 4,000 Units, IV Push, ONCE, 1 dose, On Thu07/03/24 at 1715, MJ [facility] heparin (1,000 unit/mL, 10 mL vial) for Rebolusing 2023-08 23:06: 54 07-04 18:30 :44 No 3000U FOR REBOLUSING , Starting on Thu07/03/24 at 1706, Until Thu07/04/24 at 1230, Routine, Dosing based on aPTT testing parameters (refer to continuous heparin drip order). [facility] apixaban 5 mg tablet 2023-08 00:00: 00 Yes [id number] 5mg Take 1 tablet by mouth in the morning and 1 tablet in the evening. Indication s: atrial fibrillati on [facility] aspirin 81 mg chewable tablet 2023-08 00:00: 00 08-15 00:00 :00 No [id number] 9100 81mg Take 1 tablet by mouth in the morning. [facility] HYDROcodone -acetaminop hen (NORCO 5) tablet 1 tablet 2023-08 10:50: 39 05-17 18:39 :03 No 1{tbl} 1 tablet, Oral, Q6HPRN, Starting on Thu05/17/24 at 0550, Until Thu05/17/24 at 1339, Routine, Pain (scale 4-6) [facility] empaglifloz in (JARDIANCE) 10 mg tablet 2023-08 00:00: 00 Yes [id number] 10mg Take 1 tablet by mouth in the morning. [facility] omeprazole 40 mg capsule 2023-08 00:00: 00 Yes [id number] 40mg Take 1 capsule by mouth in the morning. [facility] busPIRone 5 mg tablet 2023-08 00:00: 00 Yes [id number] 5mg Take 1 tablet by mouth in the morning and 1 tablet in the evening. [facility] gabapentin 100 mg capsule 2023-08 00:00: 00 Yes [id number] 100mg Take 1 capsule by mouth in the morning and 1 capsule at noon and 1 capsule in the evening. [facility] spironolact one (ALDACTONE) 25 mg tablet 2023-08 00:00: 00 Yes [id number] 9100 25mg Take 1 tablet by mouth in the morning. [facility] atorvastati n 40 mg tablet 2023-08 00:00: 00 07-21 00:00 :00 No [id number] 40mg Take 1 tablet by mouth at bedtime. [facility] carvediloL 25 mg tablet 2023-08 00:00: 00 07-21 00:00 :00 No [id number] 9100 25mg Take 1 tablet by mouth in the morning and 1 tablet in the evening. Take with meals. [facility] furosemide 40 mg tablet 2023-08 00:00: 00 07-21 00:00 :00 No [id number] 9100 40mg Take 1 tablet by mouth in the morning and 1 tablet at noon and 1 tablet in the evening. [facility] lisinopriL 2.5 mg tablet 2023-08 00:00: 00 06-17 05:59 :00 No [id number] 9104 2.5mg Take 1 tablet by mouth in the morning for 30 days. [facility] apixaban 5 mg tablet 2023-08 00:00: 00 06-01 00:00 :00 No 1358 5mg Take 1 tablet by mouth in the morning and 1 tablet in the evening. Indication s: atrial fibrillati on [facility] aspirin 81 mg chewable tablet 2023-08 00:00: 00 06-01 00:00 :00 No [id number] 9100 81mg Take 1 tablet by mouth in the morning. [facility] KCL (KLOR-CON M20) tablet 40 mEq 2023-08 13:00: 00 05-17 13:18 :00 No 40meq 40 mEq, Oral, BID, 3 doses, First dose on Thu05/16/24 at 0800, Last dose on Thu05/17/24 at 0800, Routine [facility] spironolact one (ALDACTONE) tablet 25 mg 2023-08 0-14 13:00: 00 05-17 23:14 :29 No 25mg 25 mg, Oral, BID, First dose (after last modificati on) on 05/16/24 at 0800, Until Discontinu ed, Routine [facility] Sliding Scale Insulin - Lispro (HumaLOG) 2023-08 0- 02:00: 00 05-17 23:14 :29 No Subcutaneo us, TID MEALS+HS, First dose on Thu05/15/24 at 2100, Until Discontinu ed, Routine [facility] glucagon HCL injection 1 mg 2023-08 0- 01:06: 44 05-17 23:14 :29 No 1mg 1 mg, Intramuscu lar, PRN, Starting on Thu05/15/24 at 2006, Until Thu05/17/24 at 1814, MJ, Low blood sugar, Blood Glucose < or = 70 mg/dL and patient is NPO, unable to swallow or has mental changes. [facility] dextrose 50 % in water (D50W) injection 25 mL 2023-08 01:06: 44 05-17 23:14 :29 No 25mL 25 mL, Slow IV Push, PRN, Starting on Thu05/15/24 at 2006, Until Thu05/17/24 at 1814, MJ, Blood Glucose < or = 70 mg/dL and patient is NPO, unable to swallow or has mental status changes. [facility] glipiZIDE (GLUCOTROL) tablet 5 mg 2023-08 0-13 21:30: 00 05-17 00:17 :12 No 5mg 5 mg, Oral, BIDAC, First dose on Thu05/15/24 at 1630, Until Discontinu ed, Routine [facility] rosuvastati n (CRESTOR) tablet 10 mg 2023-08 0-13 14:00: 00 05-17 23:14 :29 No 10mg 10 mg, Oral, DAILY, First dose on Thu05/15/24 at 0900, Until Discontinu ed, Routine [facility] allopurinoL (ZYLOPRIM) tablet 300 mg 2023-08 14:00: 00 05-17 23:14 :29 No 300mg 300 mg, Oral, DAILY, First dose on 05/15/24 at 0900, Until Discontinu ed, Routine [facility] lisinopriL (PRINIVIL,Z ESTRIL) tablet 2.5 mg 2023-08 14:00: 00 05-17 23:14 :28 No 2.5mg 2.5 mg, Oral, DAILY, First dose on 05/15/24 at 0900, Until Discontinu ed, Routine [facility] aspirin chewable tablet 81 mg 2023-08 14:00: 00 05-17 23:14 :28 No 81mg 81 mg, Oral, DAILY, First dose on 05/15/24 at 0900, Until Discontinu ed, Routine [facility] pantoprazol e (PROTONIX) EC tablet 40 mg 2023-08 14:00: 00 05-17 23:14 :28 No 40mg 40 mg, Oral, DAILY, First dose on 05/15/24 at 0900, Until Discontinu ed, Routine [facility] spironolact one (ALDACTONE) tablet 25 mg 2023-08 14:00: 00 05-16 11:43 :34 No 25mg 25 mg, Oral, DAILY, First dose on 05/15/24 at 0900, Until Discontinu ed, Routine [facility] sulfur hexafluorid e microsphr (LUMASON) injection 5 mL 2023-08 14:00: 00 05-15 13:59 :00 No [id number] 5mL 5 mL, Intravenou s, ONCE, 1 dose, On 05/15/24 at 0900, Routine [facility] lidocaine-p rilocaine (EMLA) 2.5-2.5 % cream 2023-08 13:00: 00 05-17 23:14 :28 No [facility] gabapentin (NEURONTIN) capsule 100 mg 2023-08 13:00: 00 05-17 23:14 :28 No 100mg 100 mg, Oral, TID, First dose on 05/15/24 at 0800, Until Discontinu ed, Routine [facility] furosemide (LASIX) tablet 40 mg 2023-08 13:00: 00 05-17 23:14 :28 No 40mg 40 mg, Oral, TID, First dose on Thu05/15/24 at 0800, Until Discontinu ed, Routine [facility] carvediloL (COREG) tablet 25 mg 2023-08 13:00: 00 05-17 23:14 :28 No 25mg 25 mg, Oral, BID MEALS, First dose on 05/15/24 at 0800, Until Discontinu ed, Routine [facility] busPIRone (BUSPAR) tablet 5 mg 2023-08 13:00: 00 05-17 23:14 :28 No 5mg 5 mg, Oral, BID, First dose on 05/15/24 at 0800, Until Discontinu ed, Routine [facility] apixaban (ELIQUIS) tablet 5 mg 2023-08 13:00: 00 05-17 23:14 :28 No 1358 5mg 5 mg, Oral, BID, First dose on 05/15/24 at 0800, Until Discontinu ed, Routine, Indication s: Non-Valvul ar Atrial Fibrillati on [facility] methocarbam oL (ROBAXIN) tablet 500 mg 2023-08 12:32: 57 05-17 23:14 :29 No 500mg [facility] ammonium lactate (LAC-HYDRIN ) 12 % cream 2023-08 12:32: 22 05-17 23:14 :28 No [facility] niCARdipine (CARDENE I.V.) 40 mg in [...] at maximum allowed dose, contact prescriber . [facility] metoprolol (LOPRESSOR) injection 5 mg 2023-08 08:00: 00 05-15 07:45 :00 No 5mg 5 mg, Slow IV Push, ONCE NOW, 1 dose, On Thu05/15/24 at 0300, Routine [facility] ondansetron (ZOFRAN (PF)) injection 4 mg 2023-08 07:35: 58 05-17 23:14 :28 No 4mg 4 mg, Slow IV Push, Q6HPRN, Starting on Thu05/15/24 at 0235, Until Thu05/17/24 at 1814, Routine, Nausea and Vomiting (N/V) [facility] HYDROcodone -acetaminop hen (NORCO 5) tablet 1 tablet 2023-08 07:35: 18 05-17 07:34 :18 No 1{tbl} 1 tablet, Oral, Q6HPRN, Starting on Thu05/15/24 at 0235, Until Thu05/17/24 at 0234, Routine, Pain (scale 4-6) [facility] acetaminoph en (TYLENOL) tablet 650 mg 2023-08 07:35: 15 05-17 23:14 :28 No 650mg 650 mg, Oral, Q6HPRN, Starting on Thu05/15/24 at 0235, Until Thu05/17/24 at 1814, Routine, Pain (scale 1-3) [facility] furosemide (LASIX) injection 40 mg 2023-08 06:45: 00 05-15 06:00 :00 No 40mg 40 mg, IV Push, ONCE, 1 dose, On 05/15/24 at 0145, MJ [facility] KETOCONAZOL E 2 % cream 2023-08 0-04 00:00: 00 07-13 00:00 :00 No [id number] APPLY TO AREA(S) DAILY. APPLY TO FEET/TOES [facility] lidocaine-p rilocaine 2.5-2.5 % cream 04-20 00:00: 00 08-15 00:00 :00 No [id number] Apply to area(s) 2 (two) times daily. [facility] ammonium lactate 12 % cream 04-20 00:00: 00 07-13 00:00 :00 No [id number] Apply to area(s) as needed for Itching. [facility] ketoconazol e 2 % cream 04-20 00:00: 00 05-06 00:00 :00 No [id number] Apply to area(s) daily. Apply to feet/toes [facility] methocarbam oL 500 mg tablet 04-18 00:00: 00 Yes [id number] 500mg Take 1 tablet by mouth 3 (three) times daily as needed for Pain (scale 7-10) (Knee pain). [facility] lidocaine 5 % ointment 04-18 00:00: 00 04-20 00:00 :00 No [id number] Apply to area(s) 2 (two) times daily. [facility] Blood-Gluco se Meter Kit 04-13 00:00: 00 Yes [id number] Check sugars 2 times a day. Dx. Code E11.9 Brand per Insurance [facility] blood sugar diagnostic strip 04-13 00:00: 00 Yes [id number] Check blood sugar 2 times a day. E11.9. Brand per insurance. [facility] Lancets Misc 04-13 00:00: 00 Yes [id number] Check sugars 1 times a day. Dx Code E11.9. Brand per insurance. [facility] allopurinoL 300 mg tablet 04-13 00:00: 00 Yes [id number] 300mg Take 1 tablet by mouth every morning. [facility] apixaban 5 mg tablet 04-13 00:00: 00 05-17 00:00 :00 No [id number] 5mg Take 1 tablet by mouth in the morning and 1 tablet in the evening. Indication s: atrial fibrillati on [facility] furosemide 40 mg tablet 04-13 00:00: 00 05-17 00:00 :00 No [id number] 9100 40mg Take 1 tablet by mouth in the morning and 1 tablet at noon and 1 tablet in the evening. [facility] aspirin 81 mg chewable tablet 04-13 00:00: 00 05-17 00:00 :00 No [id number] 9100 81mg Take 1 tablet by mouth in the morning. [facility] spironolact one (ALDACTONE) tablet 25 mg 04-05 14:00: 00 Yes 25mg 25 mg, Oral, DAILY, First dose on Thu04/05/24 at 0900, Until Discontinu ed, Routine [facility] lisinopriL (PRINIVIL,Z ESTRIL) tablet 2.5 mg 04-05 14:00: 00 Yes 2.5mg 2.5 mg, Oral, DAILY, First dose on Thu04/05/24 at 0900, Until Discontinu ed, Routine [facility] aspirin chewable tablet 81 mg 04-05 14:00: 00 Yes 81mg 81 mg, Oral, DAILY, First dose on Thu04/05/24 at 0900, Until Discontinu ed, Routine [facility] allopurinoL (ZYLOPRIM) tablet 300 mg 04-05 14:00: 00 Yes 300mg 300 mg, Oral, QAM, First dose on Thu04/05/24 at 0900, Until Discontinu ed, Routine [facility] magnesium sulfate in water 4 gram/50 mL (8 %) IV Piggyback 4 g 04-05 13:00: 00 04-05 15:58 :00 No 4g 4 g, IV Piggyback, at 25 mL/hr Administer over 120 Minutes, ONCE, 1 dose, On Thu04/05/24 at 0800, Routine [facility] atorvastati n (LIPITOR) tablet 40 mg 04-05 02:00: 00 Yes 40mg 40 mg, Oral, QHS, First dose on Thu04/04/24 at 2100, Until Discontinu ed, Routine [facility] busPIRone (BUSPAR) tablet 5 mg 04-05 01:00: 00 Yes 5mg 5 mg, Oral, BID, First dose on Thu04/04/24 at 2000, Until Discontinu ed, Routine [facility] apixaban (ELIQUIS) tablet 5 mg 04-05 01:00: 00 Yes 1358 5mg 5 mg, Oral, BID, First dose on Thu04/04/24 at 2000, Until Discontinu ed, Routine, Indication s: Non-Valvul ar Atrial Fibrillati on [facility] Sliding Scale Insulin - Lispro (HumaLOG) 04-04 22:00: 00 Yes [facility] carvediloL (COREG) tablet 25 mg 04-04 22:00: 00 Yes 25mg 25 mg, Oral, BID MEALS, First dose on Thu04/04/24 at 1700, Until Discontinu ed, Routine [facility] glipiZIDE (GLUCOTROL) tablet 5 mg 04-04 21:30: 00 Yes 5mg 5 mg, Oral, BIDAC, First dose on Thu04/04/24 at 1630, Until Discontinu ed, Routine [facility] aspirin tablet 325 mg 04-04 19:30: 00 04-04 19:59 :00 No 325mg 325 mg, Oral, ONCE, 1 dose, On Thu04/04/24 at 1430, Routine [facility] gabapentin (NEURONTIN) capsule 100 mg 04-04 19:00: 00 Yes 100mg 100 mg, Oral, TID, First dose on Thu04/04/24 at 1400, Until Discontinu ed, Routine [facility] pantoprazol e (PROTONIX) EC tablet 40 mg 04-04 18:45: 00 Yes 40mg 40 mg, Oral, DAILY, First dose on Thu04/04/24 at 1345, Until Discontinu ed, Routine [facility] furosemide (LASIX) injection 40 mg 04-04 18:45: 00 Yes 40mg 40 mg, Slow IV Push, Q12H, First dose on Thu04/04/24 at 1345, Until Discontinu ed, Routine [facility] cloNIDine (CATAPRES) tablet 0.2 mg 04-04 18:45: 00 04-04 18:37 :00 No .2mg 0.2 mg, Oral, ONCE, 1 dose, On Thu04/04/24 at 1345, STAT [facility] dextrose 50 % in water (D50W) injection 25 mL 04-04 18:40: 13 Yes 25mL [facility] ondansetron (ZOFRAN (PF)) injection 4 mg 04-04 18:40: 07 Yes 4mg [facility] HYDROcodone -acetaminop hen (NORCO) 10-325 mg tablet 1 tablet 04-04 18:40: 05 Yes 1{tbl} 1 tablet, Oral, Q6HPRN, Starting on Thu04/04/24 at 1340, Until Discontinu ed, Routine, Pain (scale 7-10) [facility] HYDROcodone -acetaminop hen (NORCO 5) tablet 1 tablet 04-04 18:39: 05 04-06 18:38 :05 No 1{tbl} [facility] acetaminoph en (TYLENOL) tablet 650 mg 04-04 18:39: 00 Yes 650mg [facility] acetaminoph en (TYLENOL) tablet 1,000 mg 04-04 18:00: 00 04-04 18:04 :00 No 1000mg 1,000 mg, Oral, ONCE, 1 dose, On Thu04/04/24 at 1300, MJ [facility] nitroglycer in (NITROSTAT) sublingual tablet 0.4 mg 04-04 18:00: 00 04-04 18:05 :00 No .4mg 0.4 mg, Sublingual , ONCE, 1 dose, On Thu04/04/24 at 1300, MJ [facility] HYDROcodone -acetaminop hen (NORCO) 10-325 mg tablet 1 tablet 03-05 01:30: 00 03-05 00:44 :00 No 1{tbl} 1 tablet, Oral, ONCE, 1 dose, On Thu03/04/24 at 2030, Routine [facility] magnesium oxide (MAGOX) 400 mg (241.3 mg magnesium) tablet 01-11 07:19: 24 01-11 00:00 :00 No 400mg Take 1 tablet by mouth in the morning. [facility] carvediloL 25 mg tablet 01-11 07:09: 01-04 00:00 :00 No 25mg Take 1 tablet by mouth in the morning and 1 tablet in the evening. Take with meals. [facility] empaglifloz in (JARDIANCE) 10 mg 01-11 07:09: 01-04 00:00 :00 No 10mg Take 1 tablet by mouth in the morning. [facility] busPIRone 5 mg tablet 01-11 07:09: 01-04 00:00 :00 No 5mg Take 1 tablet by mouth in the morning and 1 tablet in the evening. [facility] spironolact one (ALDACTONE) 25 mg tablet 01-11 07:09: 01-04 00:00 :00 No 25mg Take 1 tablet by mouth in the morning. [facility] spironolact one (ALDACTONE) 25 mg tablet 01-11 00:00: 00 05-17 00:00 :00 No [id number] 25mg Take 1 tablet by mouth in the morning. [facility] atorvastati n 40 mg tablet 01-11 00:00: 05-17 00:00 :00 No [id number] 40mg Take 1 tablet by mouth at bedtime. [facility] busPIRone 5 mg tablet 01-11 00:00: 00 05-17 00:00 :00 No [id number] 5mg Take 1 tablet by mouth in the morning and 1 tablet in the evening. [facility] carvediloL 25 mg tablet 01-11 00:00: 00 05-17 00:00 :00 No [id number] 25mg Take 1 tablet by mouth in the morning and 1 tablet in the evening. Take with meals. [facility] empaglifloz in (JARDIANCE) 10 mg tablet 01-11 00:00: 00 05-17 00:00 :00 No [id number] 10mg Take 1 tablet by mouth in the morning. [facility] gabapentin 100 mg capsule 01-11 00:00: 00 05-17 00:00 :00 No [id number] 100mg Take 1 capsule by mouth in the morning and 1 capsule at noon and 1 capsule in the evening. [facility] glipiZIDE 5 mg tablet 01-11 00:00: 00 05-17 00:00 :00 No [id number] 5mg Take 1 tablet by mouth 2 (two) times daily before breakfast and dinner. [facility] diclofenac dodium (VOLTAREN) 1 % gel 01-11 00:00: 00 05-17 00:00 :00 No [id number] 4g Apply 4 g to area(s) 4 (four) times daily. Apply 4 g qid [facility] aspirin 81 mg chewable tablet 01-11 00:00: 00 04-13 00:00 :00 No [id number] 81mg Take 1 tablet by mouth in the morning. [facility] allopurinoL 300 mg tablet 01-11 00:00: 00 04-13 00:00 :00 No [id number] 300mg Take 1 tablet by mouth every morning. [facility] apixaban 5 mg tablet 01-11 00:00: 00 04-13 00:00 :00 No [id number] 5mg Take 1 tablet by mouth in the morning and 1 tablet in the evening. Indication s: atrial fibrillati on [facility] furosemide 40 mg tablet 01-11 00:00: 00 04-13 00:00 :00 No [id number] 40mg Take 1 tablet by mouth in the morning. [facility] lisinopriL 2.5 mg tablet 01-04 15:31: 00 05-17 00:00 :00 No 2.5mg Take 1 tablet by mouth in the morning. [facility] tiZANidine 2 mg tablet 01-04 15:30: 36 01-04 00:00 :00 No 2mg Take 2 mg by mouth every 8 (eight) hours as needed. [facility] colchicine 0.6 mg tablet 01-04 15:30: 36 01-04 00:00 :00 No .6mg Take 1 tablet by mouth in the morning. [facility] magnesium oxide (MAGOX) 400 mg (241.3 mg magnesium) tablet 09-06 20:38: 56 Yes 400mg Take 1 tablet by mouth in the morning. [facility] lisinopriL 2.5 mg tablet 09-06 20:38: 07 Yes 2.5mg Take 1 tablet by mouth in the morning. [facility] carvediloL 25 mg tablet 09-06 20:38: 00 Yes 25mg Take 1 tablet by mouth in the morning and 1 tablet in the evening. Take with meals. [facility] apixaban 5 mg tablet 09-06 00:00: 00 01-04 00:00 :00 No [id number] 5mg Take 1 tablet by mouth in the morning and 1 tablet in the evening. Indication s: atrial fibrillati on [facility] spironolact one (ALDACTONE) 25 mg tablet 09-02 13:57: 59 Yes 25mg Take 1 tablet by mouth in the morning. [facility] busPIRone 5 mg tablet 09-02 13:55: 32 Yes 5mg Take 1 tablet by mouth in the morning and 1 tablet in the evening. [facility] colchicine 0.6 mg tablet 09-02 13:55: 32 Yes .6mg Take 1 tablet by mouth in the morning. [facility] empaglifloz in (JARDIANCE) 10 mg 09-02 13:34: 02 Yes 10mg Take 1 tablet by mouth in the morning. [facility] allopurinoL 300 mg tablet 08-03 00:00: 00 01-04 00:00 :00 No 300mg Take 1 tablet by mouth in the morning. [facility] sulfur hexafluorid e microsphr (LUMASON) injection 5 mL 2022-08 21:00: 00 07-30 20:57 :00 No [id number] 5mL 5 mL, Intravenou s, ONCE, 1 dose, On Smiley 07/30/23 at 1500, Routine
manufacturing team member approving Restricted medication : CORNELIA SANDERSON [facility] spironolact one (ALDACTONE) 25 mg tablet 05-01 13:03: 07 05-01 00:00 :00 No 25mg Take 1 tablet by mouth in the morning. [facility] empaglifloz in (JARDIANCE) 10 mg 05-01 10:59: 23 Yes 10mg Take 1 tablet by mouth in the morning. [facility] carvediloL 25 mg tablet 05-01 10:38: 09 Yes 25mg Take 1 tablet by mouth in the morning and 1 tablet in the evening. Take with meals. [facility] lisinopriL 2.5 mg tablet 05-01 10:38: 09 Yes 2.5mg Take 1 tablet by mouth in the morning. [facility] magnesium oxide (MAGOX) 400 mg (241.3 mg magnesium) tablet 05-01 10:38: 09 Yes 400mg Take 1 tablet by mouth in the morning. [facility] atorvastati n 40 mg tablet 05-01 00:00: 00 01-04 00:00 :00 No [id number] 40mg Take 1 tablet by mouth at bedtime. [facility] HYDROcodone -acetaminop hen (NORCO 5) 5-325 mg tablet 1 tablet 03-28 04:00: 00 03-28 03:48 :00 No 1{tbl} 1 tablet, Oral, ONCE, 1 dose, On Thu03/27/23 at 2300, Routine [facility] hydrocortis one 25 mg suppository 03-28 00:00: 00 01-04 00:00 :00 No [id number] 25mg Insert 1 Suppositor y into rectum 2 (two) times daily as needed for Rectal itching/pa in for up to 15 doses. [facility] furosemide 40 mg tablet 03-25 00:00: 00 01-11 00:00 :00 No 40mg Take 1 tablet by mouth in the morning and 1 tablet in the evening. [facility] furosemide (LASIX) 20 mg tablet 10-27 11:08: 48 10-27 00:00 :00 No 20mg Take 20 mg by mouth in the morning. [facility] dapaglifloz in (FARXIGA) 10 mg tablet 10-27 11:08: 45 10-27 00:00 :00 No 10mg Take 10 mg by mouth daily. [facility] empaglifloz in (JARDIANCE) 10 mg 10-27 11:05: 13 Yes 10mg Take 1 tablet by mouth in the morning. [facility] carvediloL 25 mg tablet 10-27 10:49: 14 Yes 25mg Take 25 mg by mouth in the morning and 25 mg in the evening. Take with meals. [facility] magnesium oxide (MAGOX) 400 mg (241.3 mg magnesium) tablet 10-27 10:49: 10 Yes 400mg Take 400 mg by mouth in the morning. [facility] spironolact one (ALDACTONE) 25 mg tablet 10-27 10:49: 07 Yes 25mg Take 25 mg by mouth in the morning. [facility] lisinopriL 2.5 mg tablet 10-27 10:49: 06 Yes 2.5mg Take 2.5 mg by mouth in the morning. [facility] dapaglifloz in (FARXIGA) 10 mg tablet 08-21 15:48: 43 Yes 10mg Take 10 mg by mouth daily. [facility] furosemide (LASIX) 20 mg tablet 08-21 15:48: 43 Yes 20mg Take 20 mg by mouth in the morning. [facility] lisinopriL 2.5 mg tablet 08-21 15:48: 43 Yes 2.5mg Take 2.5 mg by mouth in the morning. [facility] magnesium oxide (MAGOX) 400 mg (241.3 mg magnesium) tablet 08-21 15:48: 43 Yes 400mg Take 400 mg by mouth in the morning. [facility] spironolact one (ALDACTONE) 25 mg tablet 08-21 15:48: 43 Yes 25mg Take 25 mg by mouth in the morning. [facility] tiZANidine 2 mg tablet 08-21 09:52: 34 Yes 2mg Take 2 mg by mouth every 8 (eight) hours as needed. [facility] carvediloL 25 mg tablet 08-21 09:52: 34 Yes 25mg Take 25 mg by mouth in the morning and 25 mg in the evening. Take with meals. [facility] carvediloL (COREG) tablet 25 mg 2021-08 00:00: 00 06-09 23:35 :00 No 25mg 25 mg, Oral, ONCE, 1 dose, On Thu06/09/22 at 1800, Routine [facility] tiZANidine 2 mg tablet 2021-08 18:34: 04 Yes 2mg Take 2 mg by mouth every 8 (eight) hours as needed. [facility] carvediloL 25 mg tablet 2021-08 18:34: 04 Yes 25mg Take 25 mg by mouth in the morning and 25 mg in the evening. Take with meals. [facility] apixaban 2.5 mg tablet 2021-08 00:00: 00 09-06 00:00 :00 No [id number] 2.5mg Take 1 tablet by mouth in the morning and 1 tablet in the evening. Indication s: atrial fibrillati on [facility] NaCl 0.9% (NS) IV infusion 2021-08 04:45: 00 Yes at 75 mL/hr, IV Infusion, CONTINUOUS , Starting on 06/07/22 at 2345, Until Discontinu ed, Routine [facility] apixaban (ELIQUIS) tablet 2.5 mg 2021-08 01:00: 00 Yes 1358 2.5mg 2.5 mg, Oral, BID, First dose (after last modificati on) on 06/07/22 at 2000, Until Discontinu ed, Routine
Indicatio ns: Non-Valvul ar Atrial Fibrillati on [facility] Sliding Scale Insulin - Lispro (HumaLOG) + Fsbg Testing 2021-08 17:00: 00 Yes Subcutaneo us, TID MEALS+HS, First dose on 06/07/22 at 1200, Until Discontinu ed, Routine [facility] NaCl 0.9% (NS) bolus infusion 1,000 mL 2021-08 15:30: 00 06-07 23:27 :00 No 1000mL at 75 mL/hr, 1,000 mL, IV Piggyback, ONCE, 1 dose, On 06/07/22 at 1030, STAT [facility] NaCl 0.9% (NS) bolus infusion 500 mL 2021-08 14:00: 00 06-07 13:26 :44 No 500mL at 999 mL/hr, 500 mL, IV Piggyback, ONCE, 1 dose, On 06/07/22 at 0900, STAT [facility] glucagon (GLUCAGEN DIAGNOSTIC KIT) injection 1 mg 2021-08 13:02: 13 Yes 1mg 1 mg, Intramuscu lar, PRN, Starting on 06/07/22 at 0802, Until Discontinu ed, MJ, Blood Glucose < or = 70 mg/dL and patient is unable to swallow or has mental changes. [facility] dextrose 50 % in water (D50W) injection 25 mL 2021-08 13:02: 13 Yes 25mL 25 mL, Slow IV Push, PRN, Starting on 06/07/22 at 0802, Until Discontinu ed, MJ, Blood Glucose < or = 70 mg/dL and patient is unable to swallow or has mental status changes. [facility] proMETHazin e (PHENERGAN) 25 mg in NaCl 0.9% (NS) 50 mL IV piggyback 2021-08 15:17: 15 Yes 25mg 25 mg, IV Piggyback, Q4HPRN, Starting on Thu06/06/22 at 1017, Until Discontinu ed, Routine, Nausea and Vomiting (N/V), N/V unresponsi ve to Ondansetro n [facility] omeprazole (PRILOSEC) capsule 40 mg 2021-08 14:00: 00 Yes 40mg 40 mg, Oral, DAILY, First dose on Thu06/06/22 at 0900, Until Discontinu ed [facility] aspirin EC tablet 81 mg 2021-08 14:00: 00 Yes 81mg 81 mg, Oral, DAILY, First dose on Thu06/06/22 at 0900, Until Discontinu ed, Routine [facility] bumetanide (BUMEX) tablet 4 mg 2021-08 14:00: 00 06-07 05:10 :36 No 4mg 4 mg, Oral, DAILY, First dose on Thu06/06/22 at 0900, Until Discontinu ed, Routine [facility] spironolact one (ALDACTONE) tablet 25 mg 2021-08 14:00: 00 06-07 05:10 :36 No 25mg 25 mg, Oral, DAILY, First dose on Thu06/06/22 at 0900, Until Discontinu ed, Routine [facility] lisinopriL (PRINIVIL,Z ESTRIL) tablet 2.5 mg 2021-08 14:00: 00 06-06 21:33 :34 No 2.5mg 2.5 mg, Oral, DAILY, First dose on Thu06/06/22 at 0900, Until Discontinu ed, Routine [facility] carvediloL (COREG) tablet 25 mg 2021-08 13:00: 00 06-07 05:10 :36 No 25mg 25 mg, Oral, BID MEALS, First dose on Thu06/06/22 at 0800, Until Discontinu ed, Routine [facility] glipiZIDE (GLUCOTROL) tablet 2.5 mg 2021-08 12:30: 00 06-07 13:02 :42 No 2.5mg 2.5 mg, Oral, BIDAC, First dose (after last modificati on) on Thu06/06/22 at 0730, Until Discontinu ed, Routine [facility] NaCl 0.9% (NS) IV infusion 500 mL 2021-08 04:30: 00 06-06 12:34 :35 No 500mL at 20 mL/hr, IV Infusion, CONTINUOUS , Starting on Thu06/05/22 at 2330, Until Thu06/06/22 at 0734, Routine [facility] atorvastati n (LIPITOR) tablet 80 mg 2021-08 02:00: 00 Yes 80mg 80 mg, Oral, QHS, First dose on Thu06/05/22 at 2100, Until Discontinu ed, Routine [facility] ondansetron (ZOFRAN (PF)) injection 4 mg 2021-08 01:37: 42 Yes 4mg 4 mg, Slow IV Push, Q6HPRN, Nausea and Vomiting (N/V), Starting on Thu06/05/22 at 2037
Do ses of ondansetro n 16 mg and above need to be administer ed via IV piggyback. For Dose >=24mg ECG monitoring is advisable.
[facility] bumetanide (BUMEX) tablet 3 mg 2021-08 01:00: 00 06-07 05:10 :35 No 3mg 3 mg, Oral, QPM AT 1999, First dose on Thu06/05/22 at 1999, Until Discontinu ed, Routine [facility] apixaban (ELIQUIS) tablet 5 mg 2021-08 01:00: 00 06-07 14:38 :03 No 1358 5mg 5 mg, Oral, BID, First dose on Thu06/05/22 at 1999, Until Discontinu ed, Routine
Indicatio ns: Non-Valvul ar Atrial Fibrillati on [facility] acetaminoph en (TYLENOL) tablet 650 mg 2021-08 23:47: 33 Yes 650mg 650 mg, Oral, Q6HPRN, Starting on Thu06/05/22 at 1847, Until Discontinu ed, Routine, Pain (scale 1-3) [facility] tiZANidine 2 mg tablet 2021-08 19:33: 24 Yes 2mg Take 2 mg by mouth every 8 (eight) hours as needed. [facility] carvediloL 25 mg tablet 2021-08 19:33: 24 Yes 25mg Take 25 mg by mouth in the morning and 25 mg in the evening. Take with meals. [facility] HYDROcodone -acetaminop hen (NORCO 5) 5-325 mg tablet 1 tablet 2021-08 13:45: 00 06-04 13:00 :00 No 1{tbl} 1 tablet, Oral, ONCE, 1 dose, On Thu06/04/22 at 0845, Routine [facility] tiZANidine 2 mg tablet 2021-08 11:37: 59 Yes 2mg Take 2 mg by mouth every 8 (eight) hours as needed. [facility] carvediloL 25 mg tablet 2021-08 11:37: 59 Yes 25mg Take 25 mg by mouth in the morning and 25 mg in the evening. Take with meals. [facility] lisinopriL 2.5 mg tablet 2021-08 00:00: 00 07-04 05:59 :00 No [id number] 2.5mg Take 1 tablet by mouth in the morning for 30 days. [facility] bumetanide (BUMEX) tablet 4 mg 2021-08 16:00: 00 Yes 4mg 4 mg, Oral, Q6H ABX, First dose (after last modificati on) on Thu06/02/22 at 1100, Until Discontinu ed, Routine [facility] metOLazone (ZAROXOLYN) tablet 5 mg 2021-08 14:00: 00 Yes 5mg 5 mg, Oral, QAM+PM, First dose on Thu06/02/22 at 0900, Until Discontinu ed, Routine [facility] lisinopriL (PRINIVIL,Z ESTRIL) tablet 2.5 mg 2021-08 14:00: 00 Yes 2.5mg 2.5 mg, Oral, DAILY, First dose on Thu06/02/22 at 0900, Until Discontinu ed, Routine [facility] omeprazole (PRILOSEC) capsule 40 mg 2021-08 14:00: 00 Yes 40mg 40 mg, Oral, DAILY, First dose on Thu06/02/22 at 0900, Until Discontinu ed [facility] magnesium oxide (MAG-OX 400) tablet 400 mg 2021-08 14:00: 00 Yes 400mg 400 mg, Oral, DAILY, First dose on Thu06/02/22 at 0900, Until Discontinu ed [facility] docusate (COLACE) capsule 100 mg 2021-08 14:00: 00 Yes 100mg 100 mg, Oral, DAILY, First dose on Thu06/02/22 at 0900, Until Discontinu ed [facility] aspirin EC tablet 81 mg 2021-08 14:00: 00 Yes 81mg 81 mg, Oral, DAILY, First dose on Thu06/02/22 at 0900, Until Discontinu ed, Routine [facility] Sliding Scale Insulin - Lispro (HumaLOG) + Fsbg Testing 2021-08 13:00: 00 Yes Subcutaneo us, TID MEALS, First dose (after last modificati on) on Thu06/02/22 at 0800, Until Discontinu ed, Routine [facility] bumetanide (BUMEX) tablet 4 mg 2021-08 08:30: 00 06-02 13:29 :27 No 4mg 4 mg, Oral, Q6HA, First dose (after last modificati on) on Thu06/02/22 at 0330, Until Discontinu ed, Routine [facility] spironolact one (ALDACTONE) tablet 25 mg 2021-08 06:00: 00 Yes 25mg 25 mg, Oral, BID, First dose (after last modificati on) on Thu06/02/22 at 0100, Until Discontinu ed, [facility] -[facility]L (DUONEB) 0.5 mg-3 mg(2.5 mg base)/3 mL nebulizer solution 3 mL 2021-08 05:40: 49 Yes 3mL 3 mL, Inhalation , QIDPRN, Starting on Thu06/02/22 at 0040, Until Discontinu ed, Routine, Wheezing, Bronchospa sm, Shortness of Breath [facility] zolpidem (AMBIEN) tablet 5 mg 2021-08 04:02: 27 Yes 5mg 5 mg, Oral, QHSPRN, Starting on Thu06/01/22 at 2302, Until Discontinu ed, Routine, Insomnia [facility] morpHINE (2 mg/mL) injection 2 mg 2021-08 04:02: 22 Yes 2mg 2 mg, Slow IV Push, Q4HPRN, Starting on Thu06/01/22 at 2302, Until Discontinu ed, Routine, Pain (scale 7-10) [facility] atorvastati n (LIPITOR) tablet 80 mg 2021-08 02:00: 00 Yes 80mg 80 mg, Oral, QHS, First dose on Thu06/01/22 at 2100, Until Discontinu ed, Routine [facility] apixaban (ELIQUIS) tablet 5 mg 2021-08 01:00: 00 Yes 1358 5mg 5 mg, Oral, BID, First dose on 06/01/22 at 2000, Until Discontinu ed, Routine
Indicatio ns: Non-Valvul ar Atrial Fibrillati on [facility] carvediloL (COREG) tablet 25 mg 2021-08 22:00: 00 Yes 25mg 25 mg, Oral, BID MEALS, First dose on 06/01/22 at 1700, Until Discontinu ed, Routine [facility] bumetanide (BUMEX) tablet 3 mg 2021-08 22:00: 00 06-02 05:50 :58 No 3mg 3 mg, Oral, QPM, First dose on Thu06/01/22 at 1700, Until Discontinu ed, Routine [facility] glipiZIDE (GLUCOTROL) tablet 5 mg 2021-08 21:30: 00 06-02 05:50 :58 No 5mg 5 mg, Oral, BIDAC, First dose on Thu06/01/22 at 1630, Until Discontinu ed, Routine [facility] glucagon (GLUCAGEN DIAGNOSTIC KIT) injection 1 mg 2021-08 21:11: 01 Yes 1mg 1 mg, Intramuscu lar, PRN, Starting on Thu06/01/22 at 1611, Until Discontinu ed, MJ, Blood Glucose < or = 70 mg/dL and patient is unable to swallow or has mental changes. [facility] dextrose 50 % in water (D50W) injection 25 mL 2021-08 21:11: 01 Yes 25mL 25 mL, Slow IV Push, PRN, Starting on Thu06/01/22 at 1611, Until Discontinu ed, MJ, Blood Glucose < or = 70 mg/dL and patient is unable to swallow or has mental status changes. [facility] ondansetron (ZOFRAN (PF)) injection 4 mg 2021-08 20:32: 46 Yes 4mg 4 mg, Slow IV Push, Q6HPRN, Starting on 06/01/22 at 1532, Until Discontinu ed, Routine, Nausea and Vomiting (N/V) [facility] acetaminoph en (TYLENOL) tablet 650 mg 2021-08 20:30: 48 Yes 650mg 650 mg, Oral, Q6HPRN, Starting on 06/01/22 at 1530, Until Discontinu ed, Routine, Pain (scale 1-3) [facility] furosemide (LASIX) injection 40 mg 2021-08 18:45: 00 06-01 18:53 :00 No 40mg 40 mg, IV Push, ONCE, 1 dose, On 06/01/22 at 1345, MJ [facility] carvediloL 25 mg tablet 2021-08 16:31: 23 Yes 25mg Take 25 mg by mouth in the morning and 25 mg in the evening. Take with meals. [facility] tiZANidine 2 mg tablet 2021-08 15:34: 08 Yes 2mg Take 2 mg by mouth every 8 (eight) hours as needed. [facility] tiZANidine 2 mg tablet 2021-08 13:38: 01 Yes 2mg Take 2 mg by mouth every 8 (eight) hours as needed. [facility] carvediloL 25 mg tablet 2021-08 13:38: 01 Yes 25mg Take 25 mg by mouth in the morning and 25 mg in the evening. Take with meals. [facility] tiZANidine 2 mg tablet 2021-08 06:31: 05 Yes 2mg Take 2 mg by mouth every 8 (eight) hours as needed. [facility] carvediloL 25 mg tablet 2021-08 06:31: 05 Yes 25mg Take 25 mg by mouth in the morning and 25 mg in the evening. Take with meals. [facility] iopamidol (ISOVUE 370-500 mL) injection 74 mL 2021-08 18:45: 00 05-22 18:45 :00 No [id number] 74mL 74 mL, Intravenou s, ONCE, 1 dose, On Thu05/22/22 at 1345, Routine [facility] pantoprazol e (PROTONIX) 80 mg in NaCl 0.9% (NS) 20 mL syringe 2021-08 17:15: 00 05-22 17:17 :00 No 80mg 80 mg, IV Push, ONCE, 1 dose, On Thu05/22/22 at 1215, Administer over 2 Minutes, 20 mL [facility] amoxicillin -clavulanat e 875-125 mg per tablet 2021-08 00:00: 00 06-03 00:00 :00 No [id number] 1{tbl} Take 1 tablet by mouth every 12 (twelve) hours for 10 days. [facility] hydralAZINE (APRESOLINE ) injection 20 mg 2021-08 18:30: 00 05-20 17:45 :00 No 20mg 20 mg, Slow IV Push, ONCE, 1 dose, On Thu05/20/22 at 1330, STAT [facility] cloNIDine (CATAPRES) tablet 0.2 mg 2021-08 17:45: 00 05-20 17:45 :00 No .2mg 0.2 mg, Oral, ONCE, 1 dose, On Thu05/20/22 at 1245, STAT [facility] dapaglifloz in 10 mg tablet 2021-08 00:00: 00 06-16 05:59 :00 No [id number] 10mg Take 1 tablet by mouth in the morning for 30 days. [facility] predniSONE 10 mg tablet 2021-0814 00:00: 00 05-26 04:59 :00 No [id number] Take 2 tablets by mouth daily for 3 days, THEN 1 tablet daily for 3 days, THEN 0.5 tablets daily for 3 days. [facility] sacubitriL- valsartan (ENTRESTO) 24-26 mg tablet 2021-08 00:00: 00 05-15 00:00 :00 No [id number] 1{tbl} Take 1 tablet by mouth in the morning and 1 tablet in the evening. Do all this for 30 days. [facility] bumetanide (BUMEX) tablet 3 mg 2021-08 22:00: 00 Yes 3mg 3 mg, Oral, QPM, First dose on Thu05/15/22 at 1700, Until Discontinu ed, Routine [facility] tiZANidine 2 mg tablet 2021-08 19:16: 30 Yes 2mg Take 2 mg by mouth every 8 (eight) hours as needed. [facility] carvediloL 25 mg tablet 2021-08 19:16: 30 Yes 25mg Take 25 mg by mouth in the morning and 25 mg in the evening. Take with meals. [facility] spironolact one (ALDACTONE) tablet 25 mg 2021-08 14:00: 00 Yes 25mg 25 mg, Oral, DAILY, First dose on Thu05/15/22 at 0900, Until Discontinu ed, Routine [facility] apixaban (ELIQUIS) tablet 5 mg 2021-08 01:00: 00 Yes 5mg 5 mg, Oral, BID, First dose on Thu05/14/22 at 2000, Until Discontinu ed, Routine
Indicatio ns: Non-Valvul ar Atrial Fibrillati on [facility] spironolact one (ALDACTONE) 25 mg tablet 2021-08 00:00: 00 06-15 05:59 :00 No [id number] 25mg Take 1 tablet by mouth in the morning. [facility] iron dextran (INFED) 1,000 mg in NaCl 0.9% (NS) 500 mL IV infusion 2021-08 14:45: 00 05-14 18:25 :00 No 1000mg 1,000 mg, IV Infusion, ONCE, 1 dose, On Thu05/14/22 at 0945, Administer over 1.5 Hours, 500 mL [facility] iron dextran (INFED) 25 mg in NaCl 0.9% (NS) 100 mL IV piggyback 2021-08 14:45: 00 05-14 16:55 :00 No 25mg 25 mg, IV Piggyback, ONCE, 1 dose, On Thu05/14/22 at 0945, Administer over 15 Minutes, 100 mL [facility] predniSONE (DELTASONE) tablet 30 mg 2021-08 01:00: 00 Yes 30mg 30 mg, Oral, DAILY, First dose on Thu05/13/22 at 2000, Until Discontinu ed, Routine [facility] acetaminoph en (TYLENOL) tablet 325 mg 2021-08 22:23: 27 Yes 325mg 325 mg, Oral, Q6HPRN, Starting on Thu05/13/22 at 1723, Until Discontinu ed, Routine, Pain (scale 1-3) [facility] acetaminoph en-codeine (TYLENOL #3) 300-30 mg tablet 1 tablet 2021-08 22:21: 47 Yes 1{tbl} 1 tablet, Oral, Q6HPRN, Starting on Thu05/13/22 at 1721, Until Discontinu ed, Routine, Pain (scale 7-10) [facility] sulfur hexafluorid e microsphr (LUMASON) injection 5 mL 2021-08 17:15: 00 05-13 16:35 :00 No [id number] 5mL 5 mL, Intravenou s, ONCE, 1 dose, On Thu05/13/22 at 1215, Routine
manufacturing team member approving Restricted medication : TIO PEREZ [facility] bumetanide (BUMEX) tablet 3 mg 2021-08 22:00: 00 05-14 12:16 :52 No 3mg 3 mg, Oral, QPM, First dose on Thu05/12/22 at 1700, Until Discontinu ed, Routine [facility] nitroglycer in (NITROSTAT) sublingual tablet 0.4 mg 2021-08 20:54: 18 Yes .4mg 0.4 mg, Sublingual , Q5MIN PRN, Starting on Thu05/12/22 at 1554, Until Discontinu ed, Routine, Chest pain [facility] nitroglycer in (NITROSTAT) sublingual tablet 0.4 mg 2021-08 18:16: 00 05-12 18:33 :00 No .4mg 0.4 mg, Sublingual , ONCE, 1 dose, On Thu05/12/22 at 1330, Routine [facility] trimethoben zamide (TIGAN) injection 200 mg 2021-08 17:19: 25 Yes 200mg 200 mg, Intramuscu lar, Q6HPRN, Starting on Thu05/12/22 at 1219, Until Discontinu ed, Routine, Nausea and Vomiting (N/V) [facility] bumetanide (BUMEX) tablet 4 mg 2021-08 14:00: 00 05-14 12:16 :52 No 4mg 4 mg, Oral, QAM, First dose on Thu05/12/22 at 0900, Until Discontinu ed, Routine [facility] magnesium sulfate in water 4 gram/50 mL (8 %) IV Piggyback 4 g 2021-08 14:00: 00 05-12 16:28 :00 No 4g 4 g, IV Piggyback, at 25 mL/hr Administer over 120 Minutes, ONCE, 1 dose, On Thu05/12/22 at 0900, Routine [facility] alum-mag hydroxide-s imeth (MAALOX PLUS / MAG-AL PLUS) 200-200-20 mg/5 mL suspension 30 mL 2021-08 03:00: 00 05-12 02:17 :00 No 30mL 30 mL, Oral, ONCE, 1 dose, On Thu05/11/22 at 2200, Routine [facility] lidocaine (LIDODERM) 5 % (700 mg/patch) patch 1 Patch 2021-08 03:00: 00 05-12 14:17 :00 No 1{patch } 1 Patch, Topical, Administer over 12 Hours, ONCE, 1 dose, On Thu05/11/22 at 2200, Routine [facility] atorvastati n (LIPITOR) tablet 80 mg 2021-08 02:00: 00 Yes 80mg 80 mg, Oral, QHS, First dose on 05/11/22 at 2100, Until Discontinu ed, Routine [facility] carvediloL (COREG) tablet 25 mg 2021-08 22:00: 00 Yes 25mg 25 mg, Oral, BID MEALS, First dose (after last modificati on) on 05/11/22 at 1700, Until Discontinu ed, Routine [facility] Sliding Scale Insulin - Lispro (HumaLOG) + Fsbg Testing 2021-08 22:00: 00 Yes Subcutaneo us, TID MEALS+HS, First dose on 05/11/22 at 1700, Until Discontinu ed, Routine [facility] furosemide (LASIX) injection 40 mg 2021-08 22:00: 00 05-12 13:32 :13 No 40mg 40 mg, Slow IV Push, QAM+PM, First dose on 05/11/22 at 1700, Until Discontinu ed, Routine [facility] hydrALAZINE (APRESOLINE ) tablet 25 mg 2021-08 20:00: 00 05-12 11:16 :54 No 25mg 25 mg, Oral, Q6H, First dose on Thu05/11/22 at 1500, Until Discontinu ed, Routine [facility] gabapentin (NEURONTIN) capsule 100 mg 2021-08 19:00: 00 Yes 100mg 100 mg, Oral, TID, First dose on Thu05/11/22 at 1400, Until Discontinu ed, Routine [facility] aspirin EC tablet 81 mg 2021-08 17:45: 00 Yes 81mg 81 mg, Oral, DAILY, First dose (after last modificati on) on 05/11/22 at 1245, Until Discontinu ed, Routine [facility] omeprazole (PRILOSEC) capsule 40 mg 2021-08 17:45: 00 Yes 40mg 40 mg, Oral, DAILY, First dose (after last modificati on) on 05/11/22 at 1245, Until Discontinu ed, Routine [facility] lisinopriL (PRINIVIL,Z ESTRIL) tablet 2.5 mg 2021-08 17:45: 00 05-13 16:39 :15 No 2.5mg 2.5 mg, Oral, DAILY, First dose (after last modificati on) on 05/11/22 at 1245, Until Discontinu ed, Routine [facility] spironolact one (ALDACTONE) tablet 50 mg 2021-08 17:45: 00 05-13 16:39 :15 No 50mg 50 mg, Oral, DAILY, First dose (after last modificati on) on 05/11/22 at 1245, Until Discontinu ed, Routine [facility] dextrose 10% (D10W) bolus infusion 250 mL 2021-08 17:11: 26 Yes 250mL 250 mL, IV Infusion, PRN - SEE INSTRUCTIO NS, Administer over 60 Minutes, Other, If blood glucose is < or = 70 mg/dL and patient is unable to swallow or has mental status changes, Starting on 05/11/22 at 1211
If blood glucose is [...] blood glucose is < 80 mg/dL, repeat.
[facility] glucagon (GLUCAGEN DIAGNOSTIC KIT) injection 1 mg 2021-08 17:11: 26 Yes 1mg 1 mg, Intramuscu lar, PRN, Starting on 05/11/22 at 1211, Until Discontinu ed, MJ, Blood Glucose < or = 70 mg/dL and patient is unable to swallow or has mental changes. [facility] heparin 1000 unit/mL injection Soln 5,000 Units 2021-08 16:30: 00 05-11 18:11 :00 No 5000U 5,000 Units, IV Push, ONCE, 1 dose, On 05/11/22 at 1130, Routine [facility] heparin (1,000 unit/mL, 10 mL vial) 2021-08 16:01: 34 05-14 14:00 :45 No 3000U FOR REBOLUSING , Starting on 05/11/22 at 1101, Until Thu05/14/22 at 0900, Routine
Dosing based on aPTT testing parameters (refer to continuous heparin drip order)
[facility] heparin 25,000 Units/250 mL (Premixed Bag) [...] INITIAL INFUSION RATE.&nbsp ; _ &nb sp;FOR [place], [facility], AND [facility] ONLY &nbs p; - aPTT < 35: [...] once therapeuti c levels are reached.<b r> [facility] acetaminoph en (TYLENOL) tablet 650 mg 2021-08 15:27: 54 05-13 22:23 :42 No 650mg 650 mg, Oral, Q6HPRN, Starting on 05/11/22 at 1027, Until Thu05/13/22 at 1723, Routine, Pain (scale 1-3) [facility] ondansetron (ZOFRAN (PF)) injection 4 mg 2021-08 13:30: 00 05-11 13:23 :00 No 4mg 4 mg, Slow IV Push, ONCE, 1 dose, On 05/11/22 at 0830, MJ [facility] tiZANidine 2 mg tablet 2021-08 12:16: 40 Yes 2mg Take 2 mg by mouth every 8 (eight) hours as needed. [facility] carvediloL 25 mg tablet 2021-08 12:16: 40 Yes 25mg Take 25 mg by mouth in the morning and 25 mg in the evening. Take with meals. [facility] furosemide (LASIX) injection 80 mg 2021-08 09:30: 00 05-11 09:32 :00 No 80mg 80 mg, IV Push, ONCE, 1 dose, On 05/11/22 at 0430, MJ [facility] morpHINE (4 mg/mL) injection 4 mg 2021-08 09:15: 00 05-11 09:33 :00 No 4mg 4 mg, Slow IV Push, ONCE, 1 dose, On 05/11/22 at 0415, STAT [facility] cloNIDine (CATAPRES) tablet 0.1 mg 2021-08 08:15: 00 05-11 08:16 :00 No .1mg 0.1 mg, Oral, ONCE, 1 dose, On 05/11/22 at 0315, STAT [facility] acetaminoph en (TYLENOL) tablet 1,000 mg 2021-08 08:12: 17 05-11 08:16 :00 No 1000mg 1,000 mg, Oral, PRN, 1 dose, Starting on Thu05/11/22 at 0312, Until Thu05/11/22 at 0316, MJ, Pain (scale 4-6), headache [facility] benzonatate 100 mg capsule 2021-08 0-07 00:00: 00 06-03 00:00 :00 No [id number] 100mg Take 1 capsule by mouth 3 (three) times daily as needed for Cough. [facility] glipiZIDE 5 mg tablet 2021-08 005 00:00: 00 01-04 00:00 :00 No 5mg Take 5 mg in the morning and 5 mg in the evening. [facility] lisinopriL (PRINIVIL,Z ESTRIL) tablet 2.5 mg 2021-08 14:00: 00 Yes 2.5mg 2.5 mg, Oral, DAILY, First dose on Thu05/06/22 at 0900, Until Discontinu ed, Routine [facility] spironolact one (ALDACTONE) tablet 50 mg 2021-08 0 14:00: 00 Yes 50mg 50 mg, Oral, DAILY, First dose on Thu05/06/22 at 0900, Until Discontinu ed, Routine [facility] omeprazole (PRILOSEC) capsule 40 mg 2021-08 0-04 14:00: 00 Yes 40mg 40 mg, Oral, DAILY, First dose on Thu05/06/22 at 0900, Until Discontinu ed [facility] aspirin EC tablet 81 mg 2021-08 0 14:00: 00 Yes 81mg 81 mg, Oral, DAILY, First dose on Thu05/06/22 at 0900, Until Discontinu ed, Routine [facility] KCL (KLOR-CON M20) tablet 40 mEq 2021-08 004 13:30: 00 05-06 13:11 :00 No 40meq 40 mEq, Oral, ONCE, 1 dose, On Thu05/06/22 at 0830, Routine [facility] carvediloL (COREG) tablet 25 mg 2021-08 13:00: 00 Yes 25mg 25 mg, Oral, BID MEALS, First dose on Thu05/06/22 at 0800, Until Discontinu ed, Routine [facility] tiZANidine 2 mg tablet 2021-08 11:27: 10 Yes 2mg Take 2 mg by mouth every 8 (eight) hours as needed. [facility] carvediloL 25 mg tablet 2021-08 11:27: 10 Yes 25mg Take 25 mg by mouth in the morning and 25 mg in the evening. Take with meals. [facility] HYDROcodone -acetaminop hen (NORCO) 10-325 mg tablet 1 tablet 2021-08 10:16: 48 Yes 1{tbl} 1 tablet, Oral, Q6HPRN, Starting on Thu05/06/22 at 0516, Until Discontinu ed, Routine, Pain (scale 7-10) [facility] hydralAZINE (APRESOLINE ) injection 10 mg 2021-08 10:15: 52 Yes 10mg 10 mg, Slow IV Push, Q4HPRN, Starting on Thu05/06/22 at 0515, Until Discontinu ed, STAT, DBP=>100; SBP=>160, DBP=>100; SBP=>180 [facility] furosemide (LASIX) injection 40 mg 2021-08 03:00: 00 05-06 12:27 :38 No 40mg 40 mg, Slow IV Push, Q8H, First dose on Thu05/05/22 at 2200, Until Discontinu ed, Routine [facility] atorvastati n (LIPITOR) tablet 80 mg 2021-08 02:00: 00 Yes 80mg 80 mg, Oral, QHS, First dose on Thu05/05/22 at 2100, Until Discontinu ed, Routine [facility] hydralAZINE (APRESOLINE ) injection 20 mg 2021-08 01:15: 00 05-06 00:26 :00 No 20mg 20 mg, Slow IV Push, ONCE, 1 dose, On Thu05/05/22 at 2015, STAT [facility] apixaban (ELIQUIS) tablet 5 mg 2021-08 0 01:00: 00 Yes 1358 5mg 5 mg, Oral, BID, First dose on Thu05/05/22 at 2000, Until Discontinu ed, Routine
Indicatio ns: Non-Valvul ar Atrial Fibrillati on [facility] HYDROcodone -acetaminop hen (NORCO 5) 5-325 mg tablet 1 tablet 2021-08 0 00:15: 49 05-08 00:14 :49 No 1{tbl} 1 tablet, Oral, Q6HPRN, Starting on Thu05/05/22 at 1915, Until Thu05/07/22 at 1914, Routine, Pain (scale 4-6) [facility] acetaminoph en (TYLENOL) tablet 650 mg 2021-08 00:15: 44 Yes 650mg 650 mg, Oral, Q6HPRN, Starting on Thu05/05/22 at 1915, Until Discontinu ed, Routine, Pain (scale 1-3) [facility] lisinopriL 2.5 mg tablet 2021-08 00:00: 00 06-06 04:59 :00 No [id number] 2.5mg Take 1 tablet by mouth in the morning. [facility] morpHINE (4 mg/mL) injection 4 mg 2021-08 23:30: 00 05-05 23:31 :00 No 4mg 4 mg, Slow IV Push, ONCE, 1 dose, On Thu05/05/22 at 1830, Routine [facility] hydrALAZINE (APRESOLINE ) tablet 25 mg 2021-08 22:45: 00 05-05 22:38 :00 No 25mg 25 mg, Oral, ONCE NOW, 1 dose, On Thu05/05/22 at 1745, MJ [facility] carvediloL 25 mg tablet 2021-08 20:01: 21 Yes 25mg Take 25 mg by mouth in the morning and 25 mg in the evening. Take with meals. [facility] tiZANidine 2 mg tablet 2021-08 19:45: 40 Yes 2mg Take 2 mg by mouth every 8 (eight) hours as needed. [facility] furosemide (LASIX) injection 80 mg 2021-08 19:45: 00 05-05 20:49 :00 No 80mg 80 mg, IV Push, ONCE, 1 dose, On 05/05/22 at 1445, MJ [facility] spironolact one (ALDACTONE) tablet 50 mg 04-30 14:00: 00 Yes 50mg 50 mg, Oral, DAILY, First dose on Thu04/30/22 at 0900, Until Discontinu ed, Routine [facility] omeprazole (PRILOSEC) capsule 40 mg 04-30 14:00: 00 Yes 40mg 40 mg, Oral, DAILY, First dose on Thu04/30/22 at 0900, Until Discontinu ed, Routine [facility] magnesium oxide (MAGOX) 400 mg (241.3 mg magnesium) tablet 04-30 14:00: 00 Yes 400mg Take 1 tablet by mouth in the morning. [facility] docusate (COLACE) capsule 100 mg 04-30 14:00: 00 Yes 100mg 100 mg, Oral, DAILY, First dose on Thu04/30/22 at 0900, Until Discontinu ed [facility] cholecalcif mika (vitamin D3) tablet 1,000 Units 04-30 14:00: 00 Yes 1000U 1,000 Units, Oral, DAILY, First dose on Thu04/30/22 at 0900, Until Discontinu ed, Routine [facility] bumetanide (BUMEX) tablet 4 mg 04-30 14:00: 00 Yes 4mg 4 mg, Oral, DAILY, First dose on Thu04/30/22 at 0900, Until Discontinu ed, Routine [facility] aspirin EC tablet 81 mg 04-30 14:00: 00 Yes 81mg 81 mg, Oral, DAILY, First dose on Thu04/30/22 at 0900, Until Discontinu ed, [facility] 04-30 11:36: 26 Yes 2mg Take 2 mg by mouth every 8 (eight) hours as needed. [facility] carvediloL (COREG) 25 mg tablet 04-30 11:36: 26 Yes 25mg Take 25 mg by mouth in the morning and 25 mg in the evening. Take with meals. [facility] atorvastati n (LIPITOR) tablet 80 mg 04-30 02:00: 00 Yes 80mg 80 mg, Oral, QHS, First dose on Thu04/29/22 at 2100, Until Discontinu ed, Routine [facility] gabapentin (NEURONTIN) capsule 100 mg 04-30 01:00: 00 Yes 100mg 100 mg, Oral, TID, First dose on Thu04/29/22 at 2000, Until Discontinu ed, Routine [facility] apixaban (ELIQUIS) tablet 5 mg 04-30 01:00: 00 Yes 1358 5mg 5 mg, Oral, BID, First dose on Thu04/29/22 at 2000, Until Discontinu ed, Routine
Indicatio ns: Non-Valvul ar Atrial Fibrillati on [facility] Sliding Scale Insulin - Lispro (HumaLOG) + Fsbg Testing 04-29 22:00: 00 Yes Subcutaneo us, TID MEALS+HS, First dose on Thu04/29/22 at 1700, Until Discontinu ed, Routine [facility] bumetanide (BUMEX) tablet 3 mg 04-29 22:00: 00 Yes 3mg 3 mg, Oral, QPM, First dose on Thu04/29/22 at 1700, Until Discontinu ed, Routine [facility] carvediloL (COREG) tablet 25 mg 04-29 22:00: 00 Yes 25mg 25 mg, Oral, BID MEALS, First dose on Thu04/29/22 at 1700, Until Discontinu ed, Routine [facility] dextrose 10% (D10W) bolus infusion 250 [...] blood glucose is < 80 mg/dL, repeat.
[facility] glucagon (GLUCAGEN DIAGNOSTIC KIT) injection 1 mg 04-29 21:10: 41 Yes 1mg 1 mg, Intramuscu lar, PRN, Starting on Thu04/29/22 at 1610, Until Discontinu ed, MJ, Blood Glucose < or = 70 mg/dL and patient is unable to swallow or has mental changes. [facility] ondansetron (ZOFRAN (PF)) injection 4 mg 04-29 21:10: 33 Yes 4mg 4 mg, Slow IV Push, Q6HPRN, Starting on Thu04/29/22 at 1610, Until Discontinu ed, Routine, Nausea and Vomiting (N/V) [facility] morpHINE (4 mg/mL) injection 4 mg 04-29 21:10: 30 04-30 21:09 :30 No 4mg 4 mg, Slow IV Push, Q4HPRN, Starting on Thu04/29/22 at 1610, Until Thu04/30/22 at 1609, Routine, Pain (scale 7-10) [facility] HYDROcodone -acetaminop hen (NORCO 5) 5-325 mg tablet 1 tablet 04-29 21:10: 28 05-01 21:09 :28 No 1{tbl} 1 tablet, Oral, Q6HPRN, Starting on Thu04/29/22 at 1610, Until Smiley 05/01/22 at 1609, Routine, Pain (scale 4-6) [facility] acetaminoph en (TYLENOL) tablet 650 mg 04-29 21:10: 25 Yes 650mg 650 mg, Oral, Q6HPRN, Starting on Thu04/29/22 at 1610, Until Discontinu ed, Routine, Pain (scale 1-3) [facility] tiZANidine (ZANAFLEX) tablet 4 mg 04-29 21:08: 14 Yes 4mg 4 mg, Oral, Q8HPRN, Starting on Thu04/29/22 at 1608, Until Discontinu ed, Routine, Muscle Spasms [facility] HYDROcodone -acetaminop hen (NORCO) 10-325 mg tablet 1 tablet 04-29 17:00: 00 04-29 16:01 :00 No 1{tbl} 1 tablet, Oral, ONCE NOW, 1 dose, On Thu04/29/22 at 1200, Routine [facility] hydralAZINE (APRESOLINE ) injection 10 mg 04-29 16:45: 00 04-29 16:50 :00 No 10mg 10 mg, Slow IV Push, ONCE, 1 dose, On Thu04/29/22 at 1145, MJ [facility] 04-28 00:00: 00 Yes [id number] Check sugars 1 times a day. Dx Code E11.9. Brand per insurance. [facility] 04-28 00:00: 00 04-13 00:00 :00 No [id number] Check sugars 1 times a day. Dx Code E11.9. Brand per insurance. [facility] Docusate Sodium 100 mg tablet 04-28 00:00: 00 01-04 00:00 :00 No [id number] 100mg Take 1 tablet by mouth in the morning. [facility] acetaminoph en-codeine 300-30 mg tablet 04-28 00:00: 00 01-04 00:00 :00 No [id number] 1{tbl} Take 1 tablet by mouth as needed (take daily as needed for severe right knee pain, s/p TKA, heart failure, unable to take NSAIDS). Indication s: chronic pain [facility] Blood-Gluco se Meter Kit 04-28 00:00: 00 05-05 00:00 :00 No [id number] Check sugars 1 times a day. Dx Code E11.9. Brand per insurance. [facility] blood sugar diagnostic strip 04-28 00:00: 00 05-05 00:00 :00 No [id number] Check sugars 1 times a day. Dx Code E11.9. Brand per insurance. [facility] semaglutide 7 mg Tab 04-26 00:00: 00 08-21 00:00 :00 No [id number] 7mg Take 7 mg by mouth daily. Take > 30 minutes prior to first meal of the day [facility] bumetanide (BUMEX) tablet 3 mg 04-24 02:00: 00 Yes 3mg 3 mg, Oral, QHS, First dose on Thu04/23/22 at 2100, Until Discontinu ed, Routine [facility] omeprazole (PRILOSEC) capsule 40 mg 04-23 14:00: 00 Yes 40mg 40 mg, Oral, DAILY, First dose on Thu04/23/22 at 0900, Until Discontinu ed [facility] spironolact one (ALDACTONE) tablet 50 mg 04-23 14:00: 00 Yes 50mg 50 mg, Oral, DAILY, First dose on Thu04/23/22 at 0900, Until Discontinu ed, Routine [facility] aspirin EC tablet 81 mg 04-23 14:00: 00 Yes 81mg 81 mg, Oral, DAILY, First dose on Thu04/23/22 at 0900, Until Discontinu ed, Routine [facility] carvediloL (COREG) tablet 25 mg 04-23 13:00: 00 Yes 25mg 25 mg, Oral, BID MEALS, First dose on Thu04/23/22 at 0800, Until Discontinu ed, Routine [facility] tiZANidine 2 mg tablet 04-23 11:56: 44 Yes 2mg Take 2 mg by mouth every 8 (eight) hours as needed. [facility] carvediloL (COREG) 25 mg tablet 04-23 11:56: 44 Yes 25mg Take 25 mg by mouth in the morning and 25 mg in the evening. Take with meals. [facility] atorvastati n (LIPITOR) tablet 80 mg 04-23 02:00: 00 Yes 80mg 80 mg, Oral, QHS, First dose on Thu04/22/22 at 2100, Until Discontinu ed, Routine [facility] gabapentin (NEURONTIN) capsule 100 mg 04-23 01:00: 00 Yes 100mg 100 mg, Oral, TID, First dose on Thu04/22/22 at 2000, Until Discontinu ed, Routine [facility] apixaban (ELIQUIS) tablet 5 mg 04-23 01:00: 00 Yes 1358 5mg 5 mg, Oral, BID, First dose on Thu04/22/22 at 2000, Until Discontinu ed, Routine
Indicatio ns: Non-Valvul ar Atrial Fibrillati on [facility] HYDROcodone -acetaminop hen (NORCO 5) 5-325 mg tablet 1 tablet 04-23 00:16: 33 04-25 00:15 :33 No 1{tbl} 1 tablet, Oral, Q6HPRN, Starting on Thu04/22/22 at 1916, Until Thu04/24/22 at 1915, Routine, Pain (scale 4-6) [facility] acetaminoph en (TYLENOL) tablet 650 mg 04-23 00:16: 30 Yes 650mg 650 mg, Oral, Q6HPRN, Starting on Thu04/22/22 at 1916, Until Discontinu ed, Routine, Pain (scale 1-3) [facility] HYDROcodone -acetaminop hen (NORCO) 10-325 mg tablet 1 tablet 04-22 17:00: 00 04-22 16:58 :00 No 1{tbl} 1 tablet, Oral, ONCE, 1 dose, On Thu04/22/22 at 1200, Routine [facility] amLODIPine (NORVASC) tablet 10 mg 04-22 16:15: 00 Yes 10mg 10 mg, Oral, DAILY, First dose on Thu04/22/22 at 1115, Until Discontinu ed, Routine [facility] bumetanide (BUMEX) tablet 4 mg 04-22 16:15: 00 Yes 4mg 4 mg, Oral, DAILY, First dose on Thu04/22/22 at 1115, Until Discontinu ed, Routine [facility] carvediloL (COREG) tablet 25 mg 04-22 16:15: 00 04-23 00:09 :57 No 25mg 25 mg, Oral, BID MEALS, First dose on Thu04/22/22 at 1115, Until Discontinu ed, Routine [facility] furosemide (LASIX) injection 40 mg 04-22 15:00: 00 04-22 15:26 :00 No 40mg 40 mg, IV Push, ONCE, 1 dose, On Thu04/22/22 at 1000, MJ [facility] colchicine (COLCRYS) tablet 1.2 mg 04-17 13:30: 00 04-17 12:39 :00 No 1.2mg 1.2 mg, Oral, ONCE, 1 dose, On Thu04/17/22 at 0830, Routine [facility] HYDROcodone -acetaminop hen (NORCO) 10-325 mg tablet 1 tablet 04-17 13:30: 00 04-17 12:39 :00 No 1{tbl} 1 tablet, Oral, ONCE, 1 dose, On Thu04/17/22 at 0830, Routine [facility] tiZANidine 2 mg tablet 04-02 16:18: 41 Yes 2mg Take 2 mg by mouth every 8 (eight) hours as needed. [facility] blood sugar diagnostic strip 03-26 00:00: 00 Yes [id number] Check blood sugar 2 times a day. E11.9. Brand per insurance. [facility] Blood-Gluco se Meter Kit 03-26 00:00: 00 Yes [id number] Check sugars 2 times a day. Dx. Code E11.9 Brand per Insurance [facility] blood sugar diagnostic strip 03-26 00:00: 00 04-13 00:00 :00 No [id number] Check blood sugar 2 times a day. E11.9. Brand per insurance. [facility] Blood-Gluco se Meter Kit 03-26 00:00: 00 04-13 00:00 :00 No [id number] Check sugars 2 times a day. Dx. Code E11.9 Brand per Insurance [facility] semaglutide 3 mg Tab 03-26 00:00: 00 04-26 04:59 :00 No [id number] 3mg Take 3 mg by mouth daily for 30 days. Take > 30 minutes prior to first meal of the day. [facility] amLODIPine 10 mg tablet 18 00:00: 00 04-20 04:59 :00 No [id number] 10mg Take 1 tablet by mouth in the morning for 30 days. [facility] carvediloL 25 mg tablet 8-05 00:00: 00 04-07 04:59 :00 No [id number] 25mg Take 1 tablet by mouth in the morning and 1 tablet in the evening. Take with meals. [facility] lisinopriL 10 mg tablet 8-05 00:00: 00 04-07 04:59 :00 No [id number] 10mg Take 1 tablet by mouth in the morning and 1 tablet in the evening. Do all this for 30 days. [facility] bumetanide 1 mg tablet 8-04 00:00: 00 08-21 00:00 :00 No [id number] TAKE 4 TABLETS BY MOUTH IN THE MORNING AND 3TABLETS AT NIGHT [facility] Magnesium Oxide 420 mg Tab 03-04 00:00: 00 08-21 00:00 :00 No 400mg Take 400 mg by mouth daily. [facility] spironolact one 25 mg tablet 02-10 00:00: 00 05-15 00:00 :00 No [id number] 50mg Take 2 tablets by mouth in the morning. [facility] aspirin 81 mg EC tablet 02-05 00:00: 00 01-11 00:00 :00 No [id number] 81mg Take 1 tablet by mouth daily. [facility] cholecalcif mika, vitamin D3, 25 mcg (1,000 unit) tablet 02-05 00:00: 00 01-04 00:00 :00 No [id number] 1000U Take 1 tablet by mouth daily. [facility] atorvastati n 80 mg tablet 02-05 00:00: 00 05-01 00:00 :00 No [id number] 80mg Take 1 tablet by mouth at bedtime. [facility] acetaminoph en-codeine 300-30 mg tablet 01-09 00:00: 04-28 00:00 :00 No [id number] 1{tbl} Take 1 tablet by mouth as needed (take daily as needed for severe right knee pain, s/p TKA, heart failure, unable to take NSAIDS). Indication s: chronic pain [facility] acetaminoph en 650 mg CR tablet 01-07 00:00: 01-04 00:00 :00 No [id number] 650mg Take 1 tablet by mouth every 8 (eight) hours as needed for Pain or Fever. [facility] Lancets Misc 01-02 00:00: 00 05-05 00:00 :00 No [id number] Check sugars 2 times a day. Dx Code E11.9. Brand per insurance. [facility] blood sugar diagnostic strip 01-02 00:00: 00 03-26 00:00 :00 No [id number] Check sugars 2 times a day. Dx Code E11.9. Brand per insurance. [facility] Diclofenac Sodium (VOLTAREN) 1 % gel 12-25 00:00: 00 01-04 00:00 :00 No [id number] Apply to area(s) 4 (four) times daily. Apply 4 g qid [facility] gabapentin 100 mg capsule 12-25 00:00: 00 01-04 00:00 :00 No [id number] 100mg Take 1 capsule by mouth 3 (three) times daily. [facility] omeprazole 40 mg capsule 12-19 09:09: 12-19 00:00 :00 No 40mg Take 40 mg by mouth daily. [facility] omeprazole 40 mg capsule 12-19 00:00: 00 05-17 00:00 :00 No [id number] 40mg Take 1 capsule by mouth daily. [facility] carvediloL 12.5 mg tablet 11-21 00:00: 00 12-11 00:00 :00 No [id number] 12.5mg Take 1 tablet by mouth 2 (two) times daily with meals for 30 days. [facility] apixaban 5 mg tablet 11-03 00:00: 00 06-09 00:00 :00 No [id number] 5mg Take 1 tablet by mouth 2 (two) times daily. Indication s: atrial fibrillati on [facility] bumetanide 1 mg tablet - 00:00: 00 12-04 04:59 :00 No [id number] 2mg Take 2 tablets by mouth every morning and evening for 30 days. [facility] HYDROcodone -acetaminop hen 10-325 mg tablet - 00:00: 00 12-06 00:00 :00 No TAKE 1 TABLET BY MOUTH EVERY 12 HOURS NEEDED FOR PAIN/FEVER [facility] glipiZIDE 5 mg tablet 10-06 00:00: 00 12-19 00:00 :00 No TAKE 1 TABLET BY MOUTH 2 (TWO) TIMES DAILY BEFORE BREAKFAST AND DINNER. [facility] furosemide 40 mg tablet 2- 00:00: 00 11-30 00:00 :00 No [facility] lisinopriL 20 mg tablet 2- 00:00: 00 11-30 00:00 :00 No 20mg Take 20 mg by mouth 2 (two) times daily. [facility] acetaminoph en-codeine 300-30 mg tablet 09-05 00:00: 00 12-12 00:00 :00 No [id number] 1{tbl} Take 1 tablet by mouth as needed (take daily as needed for severe right knee pain, s/p TKA, heart failure, unable to take NSAIDS). Indication s: chronic pain [facility] potassium chloride 20 mEq tablet 1-25 00:00: 00 12-19 00:00 :00 No TAKE 1 TABLET BY MOUTH EVERY DAY FOR 30 DAYS [facility] hydrALAZINE 25 mg tablet 1-24 00:00: 00 09-05 00:00 :00 No [id number] 25mg Take 1 tablet by mouth 2 (two) times daily for 30 days. [facility] KCL 20 mEq tablet 24 00:00: 00 09-05 00:00 :00 No [id number] 20meq Take 1 tablet by mouth daily for 30 days. [facility] carvediloL 25 mg tablet 1-24 00:00: 00 09-05 00:00 :00 No [id number] 50mg Take 2 tablets by mouth 2 (two) times daily with meals for 30 days. [facility] bumetanide 1 mg tablet 1-24 00:00: 00 09-01 00:00 :00 No [id number] 1mg Take 1 tablet by mouth every morning and evening for 30 days. [facility] acetaminoph en 325 mg tablet - 00:00: 00 09-09 05:59 :00 No [id number] 650mg Take 2 tablets by mouth every 6 (six) hours as needed for Pain (scale 1-3) or Temp > 38.5 C for up to 30 days. [facility] cholecalcif mika, vitamin D3, 25 mcg (1,000 unit) tablet 2020-08 2 00:00: 00 02-05 00:00 :00 No [id number] 1000U Take 1 tablet by mouth daily. [facility] atorvastati n 80 mg tablet 2020-08 00:00: 00 02-05 00:00 :00 No [id number] 80mg Take 1 tablet by mouth at bedtime. [facility] clopidogreL 75 mg tablet 2020-08 00:00: 00 11-03 00:00 :00 No [id number] 75mg Take 1 tablet by mouth daily. [facility] aspirin 81 mg EC tablet 08 00:00: 00 02-05 00:00 :00 No [id number] 81mg Take 1 tablet by mouth daily. [facility] nitroglycer in 0.4 mg sublingual tablet 12-28 00:00: 00 02-05 00:00 :[id number] 1 tablet under the tongue every 5 (five) minutes as needed for Chest pain. [facility] Immunizations Ordered Immunization Name Filled Immunization Name Date Status Comments Source SARS-COV-2 COVID-19 PFIZER VACCINE 2021-08-02 00:00:00 Completed [facility] SARS-COV-2 COVID-19 PFIZER VACCINE 2021-08-02 00:00:00 Completed [facility] SARS-COV-2 COVID-19 PFIZER VACCINE 2021-08-02 00:00:00 Completed [facility] SARS-COV-2 COVID-19 PFIZER VACCINE 2021-08-02 00:00:00 Completed [facility] SARS-COV-2 COVID-19 PFIZER VACCINE 2021-08-02 00:00:00 Completed [facility] SARS-COV-2 COVID-19 PFIZER VACCINE 2021-08-02 00:00:00 Completed [facility] SARS-COV-2 COVID-19 PFIZER VACCINE 2021-08-02 00:00:00 Completed [facility] SARS-COV-2 COVID-19 PFIZER VACCINE 2021-08-02 00:00:00 Completed [facility] SARS-COV-2 COVID-19 PFIZER VACCINE 2021-08-02 00:00:00 Completed [facility] SARS-COV-2 COVID-19 PFIZER VACCINE 2021-08-02 00:00:00 Completed [facility] SARS-COV-2 COVID-19 PFIZER VACCINE 2021-08-02 00:00:00 Completed [facility] SARS-COV-2 COVID-19 PFIZER VACCINE 2021-08-02 00:00:00 Completed [facility] SARS-COV-2 COVID-19 PFIZER VACCINE 2021-08-02 00:00:00 Completed [facility] SARS-COV-2 COVID-19 PFIZER VACCINE 2021-08-02 00:00:00 Completed [facility] SARS-COV-2 COVID-19 PFIZER VACCINE 2021-08-02 00:00:00 Completed [facility] SARS-COV-2 COVID-19 PFIZER VACCINE 2021-08-02 00:00:00 Completed [facility] SARS-COV-2 COVID-19 PFIZER VACCINE 2021-08-02 00:00:00 Completed [facility] SARS-COV-2 COVID-19 PFIZER VACCINE 2021-08-02 00:00:00 Completed [facility] SARS-COV-2 COVID-19 PFIZER VACCINE 2021-08-02 00:00:00 Completed [facility] SARS-COV-2 COVID-19 PFIZER VACCINE 2021-08-02 00:00:00 Completed [facility] SARS-COV-2 COVID-19 PFIZER VACCINE 2021-08-02 00:00:00 Completed [facility] SARS-COV-2 COVID-19 PFIZER VACCINE 2021-08-02 00:00:00 Completed [facility] SARS-COV-2 COVID-19 PFIZER VACCINE 2021-08-02 00:00:00 Completed [facility] SARS-COV-2 COVID-19 PFIZER VACCINE 2021-08-02 00:00:00 Completed [facility] SARS-COV-2 COVID-19 PFIZER VACCINE 2021-08-02 00:00:00 Completed [facility] SARS-COV-2 COVID-19 PFIZER VACCINE 2021-08-02 00:00:00 Completed [facility] SARS-COV-2 COVID-19 PFIZER VACCINE 2021-08-02 00:00:00 Completed [facility] SARS-COV-2 COVID-19 PFIZER VACCINE 2021-08-02 00:00:00 Completed [facility] SARS-COV-2 COVID-19 PFIZER VACCINE 2021-08-02 00:00:00 Completed [facility] SARS-COV-2 COVID-19 PFIZER VACCINE 2021-08-02 00:00:00 Completed [facility] SARS-COV-2 COVID-19 PFIZER VACCINE 2021-08-02 00:00:00 Completed [facility] SARS-COV-2 COVID-19 PFIZER VACCINE 2021-08-02 00:00:00 Completed [facility] SARS-COV-2 COVID-19 PFIZER VACCINE 2021-08-02 00:00:00 Completed [facility] SARS-COV-2 COVID-19 PFIZER VACCINE 2021-08-02 00:00:00 Completed [facility] SARS-COV-2 COVID-19 PFIZER VACCINE 2021-08-02 00:00:00 Completed [facility] SARS-COV-2 COVID-19 PFIZER VACCINE 2021-08-02 00:00:00 Completed [facility] SARS-COV-2 COVID-19 PFIZER VACCINE 2021-08-02 00:00:00 Completed [facility] SARS-COV-2 COVID-19 PFIZER VACCINE 2021-08-02 00:00:00 Completed [facility] SARS-COV-2 COVID-19 PFIZER VACCINE 2021-08-02 00:00:00 Completed [facility] SARS-COV-2 COVID-19 PFIZER VACCINE 2021-08-02 00:00:00 Completed [facility] SARS-COV-2 COVID-19 PFIZER VACCINE 2021-08-02 00:00:00 Completed [facility] SARS-COV-2 COVID-19 PFIZER VACCINE 2021-08-02 00:00:00 Completed [facility] SARS-COV-2 COVID-19 PFIZER VACCINE 2021-08-02 00:00:00 Completed [facility] SARS-COV-2 COVID-19 PFIZER VACCINE 2021-08-02 00:00:00 Completed [facility] SARS-COV-2 COVID-19 PFIZER VACCINE 2021-08-02 00:00:00 Completed [facility] SARS-COV-2 COVID-19 PFIZER VACCINE 2021-08-02 00:00:00 Completed [facility] SARS-COV-2 COVID-19 PFIZER VACCINE 2021-08-02 00:00:00 Completed [facility] SARS-COV-2 COVID-19 PFIZER VACCINE 2021-08-02 00:00:00 Completed [facility] SARS-COV-2 COVID-19 PFIZER VACCINE 2021-08-02 00:00:00 Completed [facility] SARS-COV-2 COVID-19 PFIZER VACCINE 2021-08-02 00:00:00 Completed [facility] SARS-COV-2 COVID-19 PFIZER VACCINE 2021-08-02 00:00:00 Completed [facility] SARS-COV-2 COVID-19 PFIZER VACCINE 2021-08-02 00:00:00 Completed [facility] SARS-COV-2 COVID-19 PFIZER VACCINE 2021-08-02 00:00:00 Completed [facility] SARS-COV-2 COVID-19 PFIZER VACCINE 2021-08-02 00:00:00 Completed [facility] SARS-COV-2 COVID-19 PFIZER VACCINE 2021-08-02 00:00:00 Completed [facility] SARS-COV-2 COVID-19 PFIZER VACCINE 2021-08-02 00:00:00 Completed [facility] SARS-COV-2 COVID-19 PFIZER VACCINE 2021-08-02 00:00:00 Completed [facility] SARS-COV-2 COVID-19 PFIZER VACCINE 2021-08-02 00:00:00 Completed [facility] SARS-COV-2 COVID-19 PFIZER VACCINE 2021-08-02 00:00:00 Completed [facility] SARS-COV-2 COVID-19 PFIZER VACCINE 2021-08-02 00:00:00 Completed [facility] SARS-COV-2 COVID-19 PFIZER VACCINE 2021-08-02 00:00:00 Completed [facility] SARS-COV-2 COVID-19 PFIZER VACCINE 2021-08-02 00:00:00 Completed [facility] Influenza Virus Vaccine Quad .5 mL IM 6+ MO 2020-09-24 00:00:00 Completed [facility] Influenza Virus Vaccine Quad .5 mL IM 6+ MO 2020-09-24 00:00:00 Completed [facility] Influenza Virus Vaccine Quad .5 mL IM 6+ MO 2020-09-24 00:00:00 Completed [facility] Influenza Virus Vaccine Quad .5 mL IM 6+ MO 2020-09-24 00:00:00 Completed [facility] Influenza Virus Vaccine Quad .5 mL IM 6+ MO 2020-09-24 00:00:00 Completed [facility] Influenza Virus Vaccine Quad .5 mL IM 6+ MO 2020-09-24 00:00:00 Completed [facility] Influenza Virus Vaccine Quad .5 mL IM 6+ MO 2020-09-24 00:00:00 Completed [facility] Influenza Virus Vaccine Quad .5 mL IM 6+ MO 2020-09-24 00:00:00 Completed [facility] Influenza Virus Vaccine Quad .5 mL IM 6+ MO 2020-09-24 00:00:00 Completed [facility] Influenza Virus Vaccine Quad .5 mL IM 6+ MO 2020-09-24 00:00:00 Completed [facility] Influenza Virus Vaccine Quad .5 mL IM 6+ MO 2020-09-24 00:00:00 Completed [facility] Influenza Virus Vaccine Quad .5 mL IM 6+ MO 2020-09-24 00:00:00 Completed [facility] Influenza Virus Vaccine Quad .5 mL IM 6+ MO 2020-09-24 00:00:00 Completed [facility] Influenza Virus Vaccine Quad .5 mL IM 6+ MO 2020-09-24 00:00:00 Completed [facility] Influenza Virus Vaccine Quad .5 mL IM 6+ MO 2020-09-24 00:00:00 Completed [facility] Influenza Virus Vaccine Quad .5 mL IM 6+ MO 2020-09-24 00:00:00 Completed [facility] Influenza Virus Vaccine Quad .5 mL IM 6+ MO 2020-09-24 00:00:00 Completed [facility] Influenza Virus Vaccine Quad .5 mL IM 6+ MO 2020-09-24 00:00:00 Completed [facility] Influenza Virus Vaccine Quad .5 mL IM 6+ MO 2020-09-24 00:00:00 Completed [facility] Influenza Virus Vaccine Quad .5 mL IM 6+ MO 2020-09-24 00:00:00 Completed [facility] Influenza Virus Vaccine Quad .5 mL IM 6+ MO 2020-09-24 00:00:00 Completed [facility] Influenza Virus Vaccine Quad .5 mL IM 6+ MO 2020-09-24 00:00:00 Completed [facility] Influenza Virus Vaccine Quad .5 mL IM 6+ MO 2020-09-24 00:00:00 Completed [facility] Influenza Virus Vaccine Quad .5 mL IM 6+ MO 2020-09-24 00:00:00 Completed [facility] Influenza Virus Vaccine Quad .5 mL IM 6+ MO 2020-09-24 00:00:00 Completed [facility] Influenza Virus Vaccine Quad .5 mL IM 6+ MO 2020-09-24 00:00:00 Completed [facility] Influenza Virus Vaccine Quad .5 mL IM 6+ MO 2020-09-24 00:00:00 Completed [facility] Influenza Virus Vaccine Quad .5 mL IM 6+ MO 2020-09-24 00:00:00 Completed [facility] Influenza Virus Vaccine Quad .5 mL IM 6+ MO 2020-09-24 00:00:00 Completed [facility] Influenza Virus Vaccine Quad .5 mL IM 6+ MO 2020-09-24 00:00:00 Completed [facility] Influenza Virus Vaccine Quad .5 mL IM 6+ MO 2020-09-24 00:00:00 Completed [facility] Influenza Virus Vaccine Quad .5 mL IM 6+ MO 2020-09-24 00:00:00 Completed [facility] Influenza Virus Vaccine Quad .5 mL IM 6+ MO 2020-09-24 00:00:00 Completed [facility] Influenza Virus Vaccine Quad .5 mL IM 6+ MO 2020-09-24 00:00:00 Completed [facility] Influenza Virus Vaccine Quad .5 mL IM 6+ MO 2020-09-24 00:00:00 Completed [facility] Influenza Virus Vaccine Quad .5 mL IM 6+ MO 2020-09-24 00:00:00 Completed [facility] Influenza Virus Vaccine Quad .5 mL IM 6+ MO 2020-09-24 00:00:00 Completed [facility] Influenza Virus Vaccine Quad .5 mL IM 6+ MO 2020-09-24 00:00:00 Completed [facility] Influenza Virus Vaccine Quad .5 mL IM 6+ MO 2020-09-24 00:00:00 Completed [facility] Influenza Virus Vaccine Quad .5 mL IM 6+ MO 2020-09-24 00:00:00 Completed [facility] Influenza Virus Vaccine Quad .5 mL IM 6+ MO 2020-09-24 00:00:00 Completed [facility] Influenza Virus Vaccine Quad .5 mL IM 6+ MO 2020-09-24 00:00:00 Completed [facility] Influenza Virus Vaccine Quad .5 mL IM 6+ MO 2020-09-24 00:00:00 Completed [facility] Influenza Virus Vaccine Quad .5 mL IM 6+ MO 2020-09-24 00:00:00 Completed [facility] Influenza Virus Vaccine Quad .5 mL IM 6+ MO 2020-09-24 00:00:00 Completed [facility] Influenza Virus Vaccine Quad .5 mL IM 6+ MO 2020-09-24 00:00:00 Completed [facility] Influenza Virus Vaccine Quad .5 mL IM 6+ MO 2020-09-24 00:00:00 Completed [facility] Influenza Virus Vaccine Quad .5 mL IM 6+ MO 2020-09-24 00:00:00 Completed [facility] Influenza Virus Vaccine Quad .5 mL IM 6+ MO 2020-09-24 00:00:00 Completed [facility] Influenza Virus Vaccine Quad .5 mL IM 6+ MO 2020-09-24 00:00:00 Completed [facility] Influenza Virus Vaccine Quad .5 mL IM 6+ MO 2020-09-24 00:00:00 Completed [facility] Influenza Virus Vaccine Quad .5 mL IM 6+ MO 2020-09-24 00:00:00 Completed [facility] Influenza Virus Vaccine Quad .5 mL IM 6+ MO 2020-09-24 00:00:00 Completed [facility] Influenza Virus Vaccine Quad .5 mL IM 6+ MO 2020-09-24 00:00:00 Completed [facility] Influenza Virus Vaccine Quad .5 mL IM 6+ MO 2020-09-24 00:00:00 Completed [facility] Influenza Virus Vaccine Quad .5 mL IM 6+ MO 2020-09-24 00:00:00 Completed [facility] Influenza Virus Vaccine Quad .5 mL IM 6+ MO 2020-09-24 00:00:00 Completed [facility] Influenza Virus Vaccine Quad .5 mL IM 6+ MO (FLUZONE/FLULAVAL/F LUARIX) 2020-09-24 00:00:00 Completed [facility] Influenza Virus Vaccine Quad .5 mL IM 6+ MO (FLUZONE/FLULAVAL/F LUARIX) 2020-09-24 00:00:00 Completed [facility] Influenza Virus Vaccine Quad .5 mL IM 6+ MO (FLUZONE/FLULAVAL/F LUARIX) 2020-09-24 00:00:00 Completed [facility] Influenza Virus Vaccine Quad .5 mL IM 6+ MO (FLUZONE/FLULAVAL/F LUARIX) 2020-09-24 00:00:00 Completed [facility] Influenza Virus Vaccine Quad .5 mL IM 6+ MO (FLUZONE/FLULAVAL/F LUARIX) 2020-09-24 00:00:00 Completed [facility] Influenza Virus Vaccine Quad .5 mL IM 6+ MO 2020-05-03 00:00:00 Completed [facility] Influenza Virus Vaccine Quad .5 mL IM 6+ MO 2020-05-03 00:00:00 Completed [facility] Influenza Virus Vaccine Quad .5 mL IM 6+ MO 2020-05-03 00:00:00 Completed [facility] Influenza Virus Vaccine Quad .5 mL IM 6+ MO 2020-05-03 00:00:00 Completed [facility] Influenza Virus Vaccine Quad .5 mL IM 6+ MO 2020-05-03 00:00:00 Completed [facility] Influenza Virus Vaccine Quad .5 mL IM 6+ MO 2020-05-03 00:00:00 Completed [facility] Influenza Virus Vaccine Quad .5 mL IM 6+ MO 2020-05-03 00:00:00 Completed [facility] Influenza Virus Vaccine Quad .5 mL IM 6+ MO 2020-05-03 00:00:00 Completed [facility] Influenza Virus Vaccine Quad .5 mL IM 6+ MO 2020-05-03 00:00:00 Completed [facility] Influenza Virus Vaccine Quad .5 mL IM 6+ MO 2020-05-03 00:00:00 Completed [facility] Influenza Virus Vaccine Quad .5 mL IM 6+ MO 2020-05-03 00:00:00 Completed [facility] Influenza Virus Vaccine Quad .5 mL IM 6+ MO 2020-05-03 00:00:00 Completed [facility] Influenza Virus Vaccine Quad .5 mL IM 6+ MO 2020-05-03 00:00:00 Completed [facility] Influenza Virus Vaccine Quad .5 mL IM 6+ MO 2020-05-03 00:00:00 Completed [facility] Influenza Virus Vaccine Quad .5 mL IM 6+ MO 2020-05-03 00:00:00 Completed [facility] Influenza Virus Vaccine Quad .5 mL IM 6+ MO 2020-05-03 00:00:00 Completed [facility] Influenza Virus Vaccine Quad .5 mL IM 6+ MO 2020-05-03 00:00:00 Completed [facility] Influenza Virus Vaccine Quad .5 mL IM 6+ MO 2020-05-03 00:00:00 Completed [facility] Influenza Virus Vaccine Quad .5 mL IM 6+ MO 2020-05-03 00:00:00 Completed [facility] Influenza Virus Vaccine Quad .5 mL IM 6+ MO 2020-05-03 00:00:00 Completed [facility] Influenza Virus Vaccine Quad .5 mL IM 6+ MO 2020-05-03 00:00:00 Completed [facility] Influenza Virus Vaccine Quad .5 mL IM 6+ MO 2020-05-03 00:00:00 Completed [facility] Influenza Virus Vaccine Quad .5 mL IM 6+ MO 2020-05-03 00:00:00 Completed [facility] Influenza Virus Vaccine Quad .5 mL IM 6+ MO 2020-05-03 00:00:00 Completed [facility] Influenza Virus Vaccine Quad .5 mL IM 6+ MO 2020-05-03 00:00:00 Completed [facility] Influenza Virus Vaccine Quad .5 mL IM 6+ MO 2020-05-03 00:00:00 Completed [facility] Influenza Virus Vaccine Quad .5 mL IM 6+ MO 2020-05-03 00:00:00 Completed [facility] Influenza Virus Vaccine Quad .5 mL IM 6+ MO 2020-05-03 00:00:00 Completed [facility] Influenza Virus Vaccine Quad .5 mL IM 6+ MO 2020-05-03 00:00:00 Completed [facility] Influenza Virus Vaccine Quad .5 mL IM 6+ MO 2020-05-03 00:00:00 Completed [facility] Influenza Virus Vaccine Quad .5 mL IM 6+ MO 2020-05-03 00:00:00 Completed [facility] Influenza Virus Vaccine Quad .5 mL IM 6+ MO 2020-05-03 00:00:00 Completed [facility] Influenza Virus Vaccine Quad .5 mL IM 6+ MO 2020-05-03 00:00:00 Completed [facility] Influenza Virus Vaccine Quad .5 mL IM 6+ MO 2020-05-03 00:00:00 Completed [facility] Influenza Virus Vaccine Quad .5 mL IM 6+ MO 2020-05-03 00:00:00 Completed [facility] Influenza Virus Vaccine Quad .5 mL IM + MO 2020-05-03 00:00:00 Completed [facility] Influenza Virus Vaccine Quad .5 mL IM 6+ MO 2020-05-03 00:00:00 Completed [facility] Influenza Virus Vaccine Quad .5 mL IM 6+ MO 2020-05-03 00:00:00 Completed [facility] Influenza Virus Vaccine Quad .5 mL IM 6+ MO 2020-05-03 00:00:00 Completed [facility] Influenza Virus Vaccine Quad .5 mL IM 6+ MO 2020-05-03 00:00:00 Completed [facility] Influenza Virus Vaccine Quad .5 mL IM 6+ MO 2020-05-03 00:00:00 Completed [facility] Influenza Virus Vaccine Quad .5 mL IM 6+ MO 2020-05-03 00:00:00 Completed [facility] Influenza Virus Vaccine Quad .5 mL IM 6+ MO 2020-05-03 00:00:00 Completed [facility] Influenza Virus Vaccine Quad .5 mL IM 6+ MO 2020-05-03 00:00:00 Completed [facility] Influenza Virus Vaccine Quad .5 mL IM 6+ MO 2020-05-03 00:00:00 Completed [facility] Influenza Virus Vaccine Quad .5 mL IM 6+ MO 2020-05-03 00:00:00 Completed [facility] Influenza Virus Vaccine Quad .5 mL IM 6+ MO 2020-05-03 00:00:00 Completed [facility] Influenza Virus Vaccine Quad .5 mL IM 6+ MO 2020-05-03 00:00:00 Completed [facility] Influenza Virus Vaccine Quad .5 mL IM 6+ MO 2020-05-03 00:00:00 Completed [facility] Influenza Virus Vaccine Quad .5 mL IM 6+ MO 2020-05-03 00:00:00 Completed [facility] Influenza Virus Vaccine Quad .5 mL IM 6+ MO 2020-05-03 00:00:00 Completed [facility] Influenza Virus Vaccine Quad .5 mL IM 6+ MO 2020-05-03 00:00:00 Completed [facility] Influenza Virus Vaccine Quad .5 mL IM 6+ MO 2020-05-03 00:00:00 Completed [facility] Influenza Virus Vaccine Quad .5 mL IM 6+ MO 2020-05-03 00:00:00 Completed [facility] Influenza Virus Vaccine Quad .5 mL IM 6+ MO 2020-05-03 00:00:00 Completed [facility] Influenza Virus Vaccine Quad .5 mL IM 6+ MO 2020-05-03 00:00:00 Completed [facility] Influenza Virus Vaccine Quad .5 mL IM 6+ MO 2020-05-03 00:00:00 Completed [facility] Influenza Virus Vaccine Quad .5 mL IM 6+ MO (FLUZONE/FLULAVAL/F LUARIX) 2020-05-03 00:00:00 Completed [facility] Influenza Virus Vaccine Quad .5 mL IM 6+ MO (FLUZONE/FLULAVAL/F LUARIX) 2020-05-03 00:00:00 Completed [facility] Influenza Virus Vaccine Quad .5 mL IM 6+ MO (FLUZONE/FLULAVAL/F LUARIX) 2020-05-03 00:00:00 Completed Influenza Virus Vaccine Quad .5 mL IM 6+ MO (FLUZONE/FLULAVAL/F LUARIX) 2020-05-03 00:00:00 Completed Influenza Virus Vaccine Quad .5 mL IM 6+ MO (FLUZONE/FLULAVAL/F LUARIX) 2020-05-03 00:00:00 Completed Influenza Virus Vaccine Quad .5 mL IM 6+ MO 2019-06-14 00:00:00 Completed [facility] Influenza Virus Vaccine Quad .5 mL IM 6+ MO 2019-06-14 00:00:00 Completed [facility] Influenza Virus Vaccine Quad .5 mL IM 6+ MO 2019-06-14 00:00:00 Completed [facility] Influenza Virus Vaccine Quad .5 mL IM 6+ MO 2019-06-14 00:00:00 Completed [facility] Influenza Virus Vaccine Quad .5 mL IM 6+ MO 2019-06-14 00:00:00 Completed [facility] Influenza Virus Vaccine Quad .5 mL IM 6+ MO 2019-06-14 00:00:00 Completed [facility] Influenza Virus Vaccine Quad .5 mL IM 6+ MO 2019-06-14 00:00:00 Completed [facility] Influenza Virus Vaccine Quad .5 mL IM 6+ MO 2019-06-14 00:00:00 Completed [facility] Influenza Virus Vaccine Quad .5 mL IM 6+ MO 2019-06-14 00:00:00 Completed [facility] Influenza Virus Vaccine Quad .5 mL IM 6+ MO 2019-06-14 00:00:00 Completed [facility] Influenza Virus Vaccine Quad .5 mL IM 6+ MO 2019-06-14 00:00:00 Completed [facility] Influenza Virus Vaccine Quad .5 mL IM 6+ MO 2019-06-14 00:00:00 Completed [facility] Influenza Virus Vaccine Quad .5 mL IM 6+ MO 2019-06-14 00:00:00 Completed [facility] Influenza Virus Vaccine Quad .5 mL IM 6+ MO 2019-06-14 00:00:00 Completed [facility] Influenza Virus Vaccine Quad .5 mL IM 6+ MO 2019-06-14 00:00:00 Completed [facility] Influenza Virus Vaccine Quad .5 mL IM 6+ MO 2019-06-14 00:00:00 Completed [facility] Influenza Virus Vaccine Quad .5 mL IM 6+ MO 2019-06-14 00:00:00 Completed [facility] Influenza Virus Vaccine Quad .5 mL IM 6+ MO 2019-06-14 00:00:00 Completed [facility] Influenza Virus Vaccine Quad .5 mL IM 6+ MO 2019-06-14 00:00:00 Completed [facility] Influenza Virus Vaccine Quad .5 mL IM 6+ MO 2019-06-14 00:00:00 Completed [facility] Influenza Virus Vaccine Quad .5 mL IM 6+ MO 2019-06-14 00:00:00 Completed [facility] Influenza Virus Vaccine Quad .5 mL IM 6+ MO 2019-06-14 00:00:00 Completed [facility] Influenza Virus Vaccine Quad .5 mL IM 6+ MO 2019-06-14 00:00:00 Completed [facility] Influenza Virus Vaccine Quad .5 mL IM 6+ MO 2019-06-14 00:00:00 Completed [facility] Influenza Virus Vaccine Quad .5 mL IM 6+ MO 2019-06-14 00:00:00 Completed [facility] Influenza Virus Vaccine Quad .5 mL IM 6+ MO 2019-06-14 00:00:00 Completed [facility] Influenza Virus Vaccine Quad .5 mL IM 6+ MO 2019-06-14 00:00:00 Completed [facility] Influenza Virus Vaccine Quad .5 mL IM 6+ MO 2019-06-14 00:00:00 Completed [facility] Influenza Virus Vaccine Quad .5 mL IM 6+ MO 2019-06-14 00:00:00 Completed [facility] Influenza Virus Vaccine Quad .5 mL IM 6+ MO 2019-06-14 00:00:00 Completed [facility] Influenza Virus Vaccine Quad .5 mL IM 6+ MO 2019-06-14 00:00:00 Completed [facility] Influenza Virus Vaccine Quad .5 mL IM 6+ MO 2019-06-14 00:00:00 Completed [facility] Influenza Virus Vaccine Quad .5 mL IM 6+ MO 2019-06-14 00:00:00 Completed [facility] Influenza Virus Vaccine Quad .5 mL IM 6+ MO 2019-06-14 00:00:00 Completed [facility] Influenza Virus Vaccine Quad .5 mL IM 6+ MO 2019-06-14 00:00:00 Completed [facility] Influenza Virus Vaccine Quad .5 mL IM 6+ MO 2019-06-14 00:00:00 Completed [facility] Influenza Virus Vaccine Quad .5 mL IM 6+ MO 2019-06-14 00:00:00 Completed [facility] Influenza Virus Vaccine Quad .5 mL IM 6+ MO 2019-06-14 00:00:00 Completed [facility] Influenza Virus Vaccine Quad .5 mL IM 6+ MO 2019-06-14 00:00:00 Completed [facility] Influenza Virus Vaccine Quad .5 mL IM 6+ MO 2019-06-14 00:00:00 Completed [facility] Influenza Virus Vaccine Quad .5 mL IM 6+ MO 2019-06-14 00:00:00 Completed [facility] Influenza Virus Vaccine Quad .5 mL IM 6+ MO 2019-06-14 00:00:00 Completed [facility] Influenza Virus Vaccine Quad .5 mL IM 6+ MO 2019-06-14 00:00:00 Completed [facility] Influenza Virus Vaccine Quad .5 mL IM 6+ MO 2019-06-14 00:00:00 Completed [facility] Influenza Virus Vaccine Quad .5 mL IM 6+ MO 2019-06-14 00:00:00 Completed [facility] Influenza Virus Vaccine Quad .5 mL IM 6+ MO 2019-06-14 00:00:00 Completed [facility] Influenza Virus Vaccine Quad .5 mL IM 6+ MO 2019-06-14 00:00:00 Completed [facility] Influenza Virus Vaccine Quad .5 mL IM 6+ MO 2019-06-14 00:00:00 Completed [facility] Influenza Virus Vaccine Quad .5 mL IM 6+ MO 2019-06-14 00:00:00 Completed [facility] Influenza Virus Vaccine Quad .5 mL IM 6+ MO 2019-06-14 00:00:00 Completed [facility] Influenza Virus Vaccine Quad .5 mL IM 6+ MO 2019-06-14 00:00:00 Completed [facility] Influenza Virus Vaccine Quad .5 mL IM 6+ MO 2019-06-14 00:00:00 Completed [facility] Influenza Virus Vaccine Quad .5 mL IM 6+ MO 2019-06-14 00:00:00 Completed [facility] Influenza Virus Vaccine Quad .5 mL IM 6+ MO 2019-06-14 00:00:00 Completed [facility] Influenza Virus Vaccine Quad .5 mL IM 6+ MO 2019-06-14 00:00:00 Completed [facility] Influenza Virus Vaccine Quad .5 mL IM 6+ MO 2019-06-14 00:00:00 Completed [facility] Influenza Virus Vaccine Quad .5 mL IM 6+ MO 2019-06-14 00:00:00 Completed [facility] Influenza Virus Vaccine Quad .5 mL IM 6+ MO (FLUZONE/FLULAVAL/F LUARIX) 2019-06-14 00:00:00 Completed [facility] Influenza Virus Vaccine Quad .5 mL IM 6+ MO (FLUZONE/FLULAVAL/F LUARIX) 2019-06-14 00:00:00 Completed [facility] Influenza Virus Vaccine Quad .5 mL IM 6+ MO (FLUZONE/FLULAVAL/F LUARIX) 2019-06-14 00:00:00 Completed [facility] Influenza Virus Vaccine Quad .5 mL IM 6+ MO (FLUZONE/FLULAVAL/F LUARIX) 2019-06-14 00:00:00 Completed [facility] Influenza Virus Vaccine Quad .5 mL IM 6+ MO (FLUZONE/FLULAVAL/F LUARIX) 2019-06-14 00:00:00 Completed [facility] Influenza Virus Vaccine Quad IM 3+ YRS 2018-07-07 00:00:00 Completed [facility] Influenza Virus Vaccine Quad IM 3+ YRS 2018-07-07 00:00:00 Completed [facility] Influenza Virus Vaccine Quad IM 3+ YRS 2018-07-07 00:00:00 Completed [facility] Influenza Virus Vaccine Quad IM 3+ YRS 2018-07-07 00:00:00 Completed [facility] Influenza Virus Vaccine Quad IM 3+ YRS 2018-07-07 00:00:00 Completed [facility] Influenza Virus Vaccine Quad IM 3+ YRS 2018-07-07 00:00:00 Completed [facility] Influenza Virus Vaccine Quad IM 3+ YRS 2018-07-07 00:00:00 Completed [facility] Influenza Virus Vaccine Quad IM 3+ YRS 2018-07-07 00:00:00 Completed [facility] Influenza Virus Vaccine Quad IM 3+ YRS 2018-07-07 00:00:00 Completed [facility] Influenza Virus Vaccine Quad IM 3+ YRS 2018-07-07 00:00:00 Completed [facility] Influenza Virus Vaccine Quad IM 3+ YRS 2018-07-07 00:00:00 Completed [facility] Influenza Virus Vaccine Quad IM 3+ YRS 2018-07-07 00:00:00 Completed [facility] Influenza Virus Vaccine Quad IM 3+ YRS 2018-07-07 00:00:00 Completed [facility] Influenza Virus Vaccine Quad IM 3+ YRS 2018-07-07 00:00:00 Completed [facility] Influenza Virus Vaccine Quad IM 3+ YRS 2018-07-07 00:00:00 Completed [facility] Influenza Virus Vaccine Quad IM 3+ YRS 2018-07-07 00:00:00 Completed [facility] Influenza Virus Vaccine Quad IM 3+ YRS 2018-07-07 00:00:00 Completed [facility] Influenza Virus Vaccine Quad IM 3+ YRS 2018-07-07 00:00:00 Completed [facility] Influenza Virus Vaccine Quad IM 3+ YRS 2018-07-07 00:00:00 Completed [facility] Influenza Virus Vaccine Quad IM 3+ YRS 2018-07-07 00:00:00 Completed [facility] Influenza Virus Vaccine Quad IM 3+ YRS 2018-07-07 00:00:00 Completed [facility] Influenza Virus Vaccine Quad IM 3+ YRS 2018-07-07 00:00:00 Completed [facility] Influenza Virus Vaccine Quad IM 3+ YRS 2018-07-07 00:00:00 Completed [facility] Influenza Virus Vaccine Quad IM 3+ YRS 2018-07-07 00:00:00 Completed [facility] Influenza Virus Vaccine Quad IM 3+ YRS 2018-07-07 00:00:00 Completed [facility] Influenza Virus Vaccine Quad IM 3+ YRS 2018-07-07 00:00:00 Completed [facility] Influenza Virus Vaccine Quad IM 3+ YRS 2018-07-07 00:00:00 Completed [facility] Influenza Virus Vaccine Quad IM 3+ YRS 2018-07-07 00:00:00 Completed [facility] Influenza Virus Vaccine Quad IM 3+ 2018-07-07 00:00:00 Completed [facility] Influenza Virus Vaccine Quad IM 3+ 2018-07-07 00:00:00 Completed [facility] Influenza Virus Vaccine Quad IM 3+ YRS 2018-07-07 00:00:00 Completed [facility] Influenza Virus Vaccine Quad IM 3+ YRS 2018-07-07 00:00:00 Completed [facility] Influenza Virus Vaccine Quad IM 3+ YRS 2018-07-07 00:00:00 Completed [facility] Influenza Virus Vaccine Quad IM 3+ 2018-07-07 00:00:00 Completed [facility] Influenza Virus Vaccine Quad IM 3+ 2018-07-07 00:00:00 Completed [facility] Influenza Virus Vaccine Quad IM 3+ 2018-07-07 00:00:00 Completed [facility] Influenza Virus Vaccine Quad IM 3+ 2018-07-07 00:00:00 Completed [facility] Influenza Virus Vaccine Quad IM 3+ 2018-07-07 00:00:00 Completed [facility] Influenza Virus Vaccine Quad IM 3+ 2018-07-07 00:00:00 Completed [facility] Influenza Virus Vaccine Quad IM 3+ 2018-07-07 00:00:00 Completed [facility] Influenza Virus Vaccine Quad IM 3+ 2018-07-07 00:00:00 Completed [facility] Influenza Virus Vaccine Quad IM 3+ 2018-07-07 00:00:00 Completed [facility] Influenza Virus Vaccine Quad IM 3+ 2018-07-07 00:00:00 Completed [facility] Influenza Virus Vaccine Quad IM 3+ 2018-07-07 00:00:00 Completed [facility] Influenza Virus Vaccine Quad IM 3+ 2018-07-07 00:00:00 Completed [facility] Influenza Virus Vaccine Quad IM 3+ 2018-07-07 00:00:00 Completed [facility] Influenza Virus Vaccine Quad IM 3+ YRS 2018-07-07 00:00:00 Completed [facility] Influenza Virus Vaccine Quad IM 3+ 2018-07-07 00:00:00 Completed [facility] Influenza Virus Vaccine Quad IM 3+ YRS 2018-07-07 00:00:00 Completed [facility] Influenza Virus Vaccine Quad IM 3+ YRS 2018-07-07 00:00:00 Completed [facility] Influenza Virus Vaccine Quad IM 3+ YRS 2018-07-07 00:00:00 Completed [facility] Influenza Virus Vaccine Quad IM 3+ YRS 2018-07-07 00:00:00 Completed [facility] Influenza Virus Vaccine Quad IM 3+ YRS 2018-07-07 00:00:00 Completed [facility] Influenza Virus Vaccine Quad IM 3+ YRS 2018-07-07 00:00:00 Completed [facility] Influenza Virus Vaccine Quad IM 3+ YRS 2018-07-07 00:00:00 Completed [facility] Influenza Virus Vaccine Quad IM 3+ YRS 2018-07-07 00:00:00 Completed [facility] Influenza Virus Vaccine Quad IM 3+ YRS 2018-07-07 00:00:00 Completed [facility] Influenza Virus Vaccine Quad IM 3+ YRS 2018-07-07 00:00:00 Completed [facility] Influenza Virus Vaccine Quad IM 3+ YRS 2018-07-07 00:00:00 Completed [facility] Influenza Virus Vaccine Quad IM 3+ YRS 2018-07-07 00:00:00 Completed [facility] Influenza Virus Vaccine Quad IM 3+ YRS 2018-07-07 00:00:00 Completed [facility] Influenza Virus Vaccine Quad IM 3+ YRS 2018-07-07 00:00:00 Completed [facility] Td 2017-08-01 00:00:00 Completed [facility] Td 2017-08-01 00:00:00 Completed [facility] Td 2017-08-01 00:00:00 Completed [facility] Td 2017-08-01 00:00:00 Completed [facility] Td 2017-08-01 00:00:00 Completed [facility] Td 2017-08-01 00:00:00 Completed [facility] Td 2017-08-01 00:00:00 Completed [facility] Td 2017-08-01 00:00:00 Completed [facility] Td 2017-08-01 00:00:00 Completed [facility] Td 2017-08-01 00:00:00 Completed [facility] Td 2017-08-01 00:00:00 Completed [facility] Td 2017-08-01 00:00:00 Completed [facility] Td 2017-08-01 00:00:00 Completed [facility] Td 2017-08-01 00:00:00 Completed [facility] Td 2017-08-01 00:00:00 Completed [facility] Td 2017-08-01 00:00:00 Completed [facility] Td 2017-08-01 00:00:00 Completed [facility] Td 2017-08-01 00:00:00 Completed [facility] Td 2017-08-01 00:00:00 Completed [facility] Td 2017-08-01 00:00:00 Completed [facility] Td 2017-08-01 00:00:00 Completed [facility] Td 2017-08-01 00:00:00 Completed [facility] Td 2017-08-01 00:00:00 Completed [facility] Td 2017-08-01 00:00:00 Completed [facility] Td 2017-08-01 00:00:00 Completed [facility] Td 2017-08-01 00:00:00 Completed [facility] Td 2017-08-01 00:00:00 Completed [facility] Td 2017-08-01 00:00:00 Completed [facility] Td 2017-08-01 00:00:00 Completed [facility] Td 2017-08-01 00:00:00 Completed [facility] Td 2017-08-01 00:00:00 Completed [facility] Td 2017-08-01 00:00:00 Completed [facility] Td 2017-08-01 00:00:00 Completed [facility] Td 2017-08-01 00:00:00 Completed [facility] Td 2017-08-01 00:00:00 Completed [facility] Td 2017-08-01 00:00:00 Completed [facility] Td 2017-08-01 00:00:00 Completed [facility] Td 2017-08-01 00:00:00 Completed [facility] Td 2017-08-01 00:00:00 Completed [facility] Td 2017-08-01 00:00:00 Completed [facility] Td 2017-08-01 00:00:00 Completed [facility] TD, NOS 2017-08-01 00:00:00 Completed [facility] TD, NOS 2017-08-01 00:00:00 Completed [facility] TD, NOS 2017-08-01 00:00:00 Completed [facility] TD, NOS 2017-08-01 00:00:00 Completed [facility] TD, NOS 2017-08-01 00:00:00 Completed [facility] TD, NOS 2017-08-01 00:00:00 Completed [facility] TD, NOS 2017-08-01 00:00:00 Completed [facility] TD, NOS 2017-08-01 00:00:00 Completed [facility] TD, NOS 2017-08-01 00:00:00 Completed [facility] TD, NOS 2017-08-01 00:00:00 Completed [facility] TD, NOS 2017-08-01 00:00:00 Completed [facility] TD, NOS 2017-08-01 00:00:00 Completed [facility] TD, NOS 2017-08-01 00:00:00 Completed [facility] TD, NOS 2017-08-01 00:00:00 Completed [facility] TD, NOS 2017-08-01 00:00:00 Completed [facility] TD, NOS 2017-08-01 00:00:00 Completed [facility] TD, NOS 2017-08-01 00:00:00 Completed [facility] TD, NOS 2017-08-01 00:00:00 Completed [facility] TD, NOS 2017-08-01 00:00:00 Completed [facility] TD, NOS 2017-08-01 00:00:00 Completed [facility] TD, NOS 2017-08-01 00:00:00 Completed [facility] Influenza Virus Vaccine Quad IM 3+ YRS 2016-05-22 00:00:00 Completed [facility] Influenza Virus Vaccine Quad IM 3+ YRS 2016-05-22 00:00:00 Completed [facility] Influenza Virus Vaccine Quad IM 3+ YRS 2016-05-22 00:00:00 Completed [facility] Influenza Virus Vaccine Quad IM 3+ YRS 2016-05-22 00:00:00 Completed [facility] Influenza Virus Vaccine Quad IM 3+ YRS 2016-05-22 00:00:00 Completed [facility] Influenza Virus Vaccine Quad IM 3+ YRS 2016-05-22 00:00:00 Completed [facility] Influenza Virus Vaccine Quad IM 3+ YRS 2016-05-22 00:00:00 Completed [facility] Influenza Virus Vaccine Quad IM 3+ YRS 2016-05-22 00:00:00 Completed [facility] Influenza Virus Vaccine Quad IM 3+ YRS 2016-05-22 00:00:00 Completed [facility] Influenza Virus Vaccine Quad IM 3+ YRS 2016-05-22 00:00:00 Completed [facility] Influenza Virus Vaccine Quad IM 3+ YRS 2016-05-22 00:00:00 Completed [facility] Influenza Virus Vaccine Quad IM 3+ YRS 2016-05-22 00:00:00 Completed [facility] Influenza Virus Vaccine Quad IM 3+ YRS 2016-05-22 00:00:00 Completed [facility] Influenza Virus Vaccine Quad IM 3+ YRS 2016-05-22 00:00:00 Completed [facility] Influenza Virus Vaccine Quad IM 3+ YRS 2016-05-22 00:00:00 Completed [facility] Influenza Virus Vaccine Quad IM 3+ YRS 2016-05-22 00:00:00 Completed [facility] Influenza Virus Vaccine Quad IM 3+ YRS 2016-05-22 00:00:00 Completed [facility] Influenza Virus Vaccine Quad IM 3+ YRS 2016-05-22 00:00:00 Completed [facility] Influenza Virus Vaccine Quad IM 3+ YRS 2016-05-22 00:00:00 Completed [facility] Influenza Virus Vaccine Quad IM 3+ YRS 2016-05-22 00:00:00 Completed [facility] Influenza Virus Vaccine Quad IM 3+ YRS 2016-05-22 00:00:00 Completed [facility] Influenza Virus Vaccine Quad IM 3+ YRS 2016-05-22 00:00:00 Completed [facility] Influenza Virus Vaccine Quad IM 3+ YRS 2016-05-22 00:00:00 Completed [facility] Influenza Virus Vaccine Quad IM 3+ YRS 2016-05-22 00:00:00 Completed [facility] Influenza Virus Vaccine Quad IM 3+ YRS 2016-05-22 00:00:00 Completed [facility] Influenza Virus Vaccine Quad IM 3+ YRS 2016-05-22 00:00:00 Completed [facility] Influenza Virus Vaccine Quad IM 3+ YRS 2016-05-22 00:00:00 Completed [facility] Influenza Virus Vaccine Quad IM 3+ YRS 2016-05-22 00:00:00 Completed [facility] Influenza Virus Vaccine Quad IM 3+ YRS 2016-05-22 00:00:00 Completed [facility] Influenza Virus Vaccine Quad IM 3+ YRS 2016-05-22 00:00:00 Completed [facility] Influenza Virus Vaccine Quad IM 3+ YRS 2016-05-22 00:00:00 Completed [facility] Influenza Virus Vaccine Quad IM 3+ YRS 2016-05-22 00:00:00 Completed [facility] Influenza Virus Vaccine Quad IM 3+ YRS 2016-05-22 00:00:00 Completed [facility] Influenza Virus Vaccine Quad IM 3+ YRS 2016-05-22 00:00:00 Completed [facility] Influenza Virus Vaccine Quad IM 3+ YRS 2016-05-22 00:00:00 Completed [facility] Influenza Virus Vaccine Quad IM 3+ YRS 2016-05-22 00:00:00 Completed [facility] Influenza Virus Vaccine Quad IM 3+ YRS 2016-05-22 00:00:00 Completed [facility] Influenza Virus Vaccine Quad IM 3+ YRS 2016-05-22 00:00:00 Completed [facility] Influenza Virus Vaccine Quad IM 3+ YRS 2016-05-22 00:00:00 Completed [facility] Influenza Virus Vaccine Quad IM 3+ YRS 2016-05-22 00:00:00 Completed [facility] Influenza Virus Vaccine Quad IM 3+ YRS 2016-05-22 00:00:00 Completed [facility] Influenza Virus Vaccine Quad IM 3+ YRS 2016-05-22 00:00:00 Completed [facility] Influenza Virus Vaccine Quad IM 3+ YRS 2016-05-22 00:00:00 Completed [facility] Influenza Virus Vaccine Quad IM 3+ YRS 2016-05-22 00:00:00 Completed [facility] Influenza Virus Vaccine Quad IM 3+ YRS 2016-05-22 00:00:00 Completed [facility] Influenza Virus Vaccine Quad IM 3+ YRS 2016-05-22 00:00:00 Completed [facility] Influenza Virus Vaccine Quad IM 3+ YRS 2016-05-22 00:00:00 Completed [facility] Influenza Virus Vaccine Quad IM 3+ YRS 2016-05-22 00:00:00 Completed [facility] Influenza Virus Vaccine Quad IM 3+ YRS 2016-05-22 00:00:00 Completed [facility] Influenza Virus Vaccine Quad IM 3+ YRS 2016-05-22 00:00:00 Completed [facility] Influenza Virus Vaccine Quad IM 3+ YRS 2016-05-22 00:00:00 Completed [facility] Influenza Virus Vaccine Quad IM 3+ YRS 2016-05-22 00:00:00 Completed [facility] Influenza Virus Vaccine Quad IM 3+ YRS 2016-05-22 00:00:00 Completed [facility] Influenza Virus Vaccine Quad IM 3+ YRS 2016-05-22 00:00:00 Completed [facility] Influenza Virus Vaccine Quad IM 3+ YRS 2016-05-22 00:00:00 Completed [facility] Influenza Virus Vaccine Quad IM 3+ YRS 2016-05-22 00:00:00 Completed [facility] Influenza Virus Vaccine Quad IM 3+ YRS 2016-05-22 00:00:00 Completed [facility] Influenza Virus Vaccine Quad IM 3+ YRS 2016-05-22 00:00:00 Completed [facility] Influenza Virus Vaccine Quad IM 3+ YRS 2016-05-22 00:00:00 Completed [facility] Influenza Virus Vaccine Quad IM 3+ YRS 2016-05-22 00:00:00 Completed [facility] Influenza Virus Vaccine Quad IM 3+ YRS 2016-05-22 00:00:00 Completed [facility] Influenza Virus Vaccine Quad IM 3+ YRS 2016-05-22 00:00:00 Completed [facility] Pneumococcal Polysaccharide, PPSV23 (PNEUMOVAX) 2015-08-31 00:00:00 Completed [facility] Pneumococcal Polysaccharide, PPSV23 (PNEUMOVAX) 2015-08-31 00:00:00 Completed [facility] Pneumococcal Polysaccharide, PPSV23 (PNEUMOVAX) 2015-08-31 00:00:00 Completed [facility] Pneumococcal Polysaccharide, PPSV23 (PNEUMOVAX) 2015-08-31 00:00:00 Completed [facility] Pneumococcal Polysaccharide, PPSV23 (PNEUMOVAX) 2015-08-31 00:00:00 Completed [facility] Pneumococcal Polysaccharide, PPSV23 (PNEUMOVAX) 2015-08-31 00:00:00 Completed [facility] Pneumococcal Polysaccharide, PPSV23 (PNEUMOVAX) 2015-08-31 00:00:00 Completed [facility] Pneumococcal Polysaccharide, PPSV23 (PNEUMOVAX) 2015-08-31 00:00:00 Completed [facility] Pneumococcal Polysaccharide, PPSV23 (PNEUMOVAX) 2015-08-31 00:00:00 Completed [facility] Pneumococcal Polysaccharide, PPSV23 (PNEUMOVAX) 2015-08-31 00:00:00 Completed [facility] Pneumococcal Polysaccharide, PPSV23 (PNEUMOVAX) 2015-08-31 00:00:00 Completed [facility] Pneumococcal Polysaccharide, PPSV23 (PNEUMOVAX) 2015-08-31 00:00:00 Completed [facility] Pneumococcal Polysaccharide, PPSV23 (PNEUMOVAX) 2015-08-31 00:00:00 Completed [facility] Pneumococcal Polysaccharide, PPSV23 (PNEUMOVAX) 2015-08-31 00:00:00 Completed [facility] Pneumococcal Polysaccharide, PPSV23 (PNEUMOVAX) 2015-08-31 00:00:00 Completed [facility] Pneumococcal Polysaccharide, PPSV23 (PNEUMOVAX) 2015-08-31 00:00:00 Completed [facility] Pneumococcal Polysaccharide, PPSV23 (PNEUMOVAX) 2015-08-31 00:00:00 Completed [facility] Pneumococcal Polysaccharide, PPSV23 (PNEUMOVAX) 2015-08-31 00:00:00 Completed [facility] Pneumococcal Polysaccharide, PPSV23 (PNEUMOVAX) 2015-08-31 00:00:00 Completed [facility] Pneumococcal Polysaccharide, PPSV23 (PNEUMOVAX) 2015-08-31 00:00:00 Completed [facility] Pneumococcal Polysaccharide, PPSV23 (PNEUMOVAX) 2015-08-31 00:00:00 Completed [facility] Pneumococcal Polysaccharide, PPSV23 (PNEUMOVAX) 2015-08-31 00:00:00 Completed [facility] Pneumococcal Polysaccharide, PPSV23 (PNEUMOVAX) 2015-08-31 00:00:00 Completed [facility] Pneumococcal Polysaccharide, PPSV23 (PNEUMOVAX) 2015-08-31 00:00:00 Completed [facility] Pneumococcal Polysaccharide, PPSV23 (PNEUMOVAX) 2015-08-31 00:00:00 Completed [facility] Pneumococcal Polysaccharide, PPSV23 (PNEUMOVAX) 2015-08-31 00:00:00 Completed [facility] Pneumococcal Polysaccharide, PPSV23 (PNEUMOVAX) 2015-08-31 00:00:00 Completed [facility] Pneumococcal Polysaccharide, PPSV23 (PNEUMOVAX) 2015-08-31 00:00:00 Completed [facility] Pneumococcal Polysaccharide, PPSV23 (PNEUMOVAX) 2015-08-31 00:00:00 Completed [facility] Pneumococcal Polysaccharide, PPSV23 (PNEUMOVAX) 2015-08-31 00:00:00 Completed [facility] Pneumococcal Polysaccharide, PPSV23 (PNEUMOVAX) 2015-08-31 00:00:00 Completed [facility] Pneumococcal Polysaccharide, PPSV23 (PNEUMOVAX) 2015-08-31 00:00:00 Completed [facility] Pneumococcal Polysaccharide, PPSV23 (PNEUMOVAX) 2015-08-31 00:00:00 Completed [facility] Pneumococcal Polysaccharide, PPSV23 (PNEUMOVAX) 2015-08-31 00:00:00 Completed [facility] Pneumococcal Polysaccharide, PPSV23 (PNEUMOVAX) 2015-08-31 00:00:00 Completed [facility] Pneumococcal Polysaccharide, PPSV23 (PNEUMOVAX) 2015-08-31 00:00:00 Completed [facility] Pneumococcal Polysaccharide, PPSV23 (PNEUMOVAX) 2015-08-31 00:00:00 Completed [facility] Pneumococcal Polysaccharide, PPSV23 (PNEUMOVAX) 2015-08-31 00:00:00 Completed [facility] Pneumococcal Polysaccharide, PPSV23 (PNEUMOVAX) 2015-08-31 00:00:00 Completed [facility] Pneumococcal Polysaccharide, PPSV23 (PNEUMOVAX) 2015-08-31 00:00:00 Completed [facility] Pneumococcal Polysaccharide, PPSV23 (PNEUMOVAX) 2015-08-31 00:00:00 Completed [facility] Pneumococcal Polysaccharide, PPSV23 (PNEUMOVAX) 2015-08-31 00:00:00 Completed [facility] Pneumococcal Polysaccharide, PPSV23 (PNEUMOVAX) 2015-08-31 00:00:00 Completed [facility] Pneumococcal Polysaccharide, PPSV23 (PNEUMOVAX) 2015-08-31 00:00:00 Completed [facility] Pneumococcal Polysaccharide, PPSV23 (PNEUMOVAX) 2015-08-31 00:00:00 Completed [facility] Pneumococcal Polysaccharide, PPSV23 (PNEUMOVAX) 2015-08-31 00:00:00 Completed [facility] Pneumococcal Polysaccharide, PPSV23 (PNEUMOVAX) 2015-08-31 00:00:00 Completed [facility] Pneumococcal Polysaccharide, PPSV23 (PNEUMOVAX) 2015-08-31 00:00:00 Completed [facility] Pneumococcal Polysaccharide, PPSV23 (PNEUMOVAX) 2015-08-31 00:00:00 Completed [facility] Pneumococcal Polysaccharide, PPSV23 (PNEUMOVAX) 2015-08-31 00:00:00 Completed [facility] Pneumococcal Polysaccharide, PPSV23 (PNEUMOVAX) 2015-08-31 00:00:00 Completed [facility] Pneumococcal Polysaccharide, PPSV23 (PNEUMOVAX) 2015-08-31 00:00:00 Completed [facility] Pneumococcal Polysaccharide, PPSV23 (PNEUMOVAX) 2015-08-31 00:00:00 Completed [facility] Pneumococcal Polysaccharide, PPSV23 (PNEUMOVAX) 2015-08-31 00:00:00 Completed [facility] Pneumococcal Polysaccharide, PPSV23 (PNEUMOVAX) 2015-08-31 00:00:00 Completed [facility] Pneumococcal Polysaccharide, PPSV23 (PNEUMOVAX) 2015-08-31 00:00:00 Completed [facility] Pneumococcal Polysaccharide, PPSV23 (PNEUMOVAX) 2015-08-31 00:00:00 Completed [facility] Pneumococcal Polysaccharide, PPSV23 (PNEUMOVAX) 2015-08-31 00:00:00 Completed [facility] Pneumococcal Polysaccharide, PPSV23 (PNEUMOVAX) 2015-08-31 00:00:00 Completed [facility] Pneumococcal Polysaccharide, PPSV23 (PNEUMOVAX) 2015-08-31 00:00:00 Completed [facility] Pneumococcal Polysaccharide, PPSV23 (PNEUMOVAX) 2015-08-31 00:00:00 Completed [facility] Pneumococcal Polysaccharide, PPSV23 (PNEUMOVAX) 2015-08-31 00:00:00 Completed [facility] Influenza Virus Vaccine Quad IM Multi-dose 6+ MO 2015-05-25 00:00:00 Completed [facility] Influenza Virus Vaccine Quad IM Multi-dose 6+ MO 2015-05-25 00:00:00 Completed [facility] Influenza Virus Vaccine Quad IM Multi-dose 6+ MO 2015-05-25 00:00:00 Completed [facility] Influenza Virus Vaccine Quad IM Multi-dose 6+ MO 2015-05-25 00:00:00 Completed [facility] Influenza Virus Vaccine Quad IM Multi-dose 6+ MO 2015-05-25 00:00:00 Completed [facility] Influenza Virus Vaccine Quad IM Multi-dose 6+ MO 2015-05-25 00:00:00 Completed [facility] Influenza Virus Vaccine Quad IM Multi-dose 6+ MO 2015-05-25 00:00:00 Completed [facility] Influenza Virus Vaccine Quad IM Multi-dose 6+ MO 2015-05-25 00:00:00 Completed [facility] Influenza Virus Vaccine Quad IM Multi-dose 6+ MO 2015-05-25 00:00:00 Completed [facility] Influenza Virus Vaccine Quad IM Multi-dose 6+ MO 2015-05-25 00:00:00 Completed [facility] Influenza Virus Vaccine Quad IM Multi-dose 6+ MO 2015-05-25 00:00:00 Completed [facility] Influenza Virus Vaccine Quad IM Multi-dose 6+ MO 2015-05-25 00:00:00 Completed [facility] Influenza Virus Vaccine Quad IM Multi-dose 6+ MO 2015-05-25 00:00:00 Completed [facility] Influenza Virus Vaccine Quad IM Multi-dose 6+ MO 2015-05-25 00:00:00 Completed [facility] Influenza Virus Vaccine Quad IM Multi-dose 6+ MO 2015-05-25 00:00:00 Completed [facility] Influenza Virus Vaccine Quad IM Multi-dose 6+ MO 2015-05-25 00:00:00 Completed [facility] Influenza Virus Vaccine Quad IM Multi-dose 6+ MO 2015-05-25 00:00:00 Completed [facility] Influenza Virus Vaccine Quad IM Multi-dose 6+ MO 2015-05-25 00:00:00 Completed [facility] Influenza Virus Vaccine Quad IM Multi-dose 6+ MO 2015-05-25 00:00:00 Completed [facility] Influenza Virus Vaccine Quad IM Multi-dose 6+ MO 2015-05-25 00:00:00 Completed [facility] Influenza Virus Vaccine Quad IM Multi-dose 6+ MO 2015-05-25 00:00:00 Completed [facility] Influenza Virus Vaccine Quad IM Multi-dose 6+ MO 2015-05-25 00:00:00 Completed [facility] Influenza Virus Vaccine Quad IM Multi-dose 6+ MO 2015-05-25 00:00:00 Completed [facility] Influenza Virus Vaccine Quad IM Multi-dose 6+ MO 2015-05-25 00:00:00 Completed [facility] Influenza Virus Vaccine Quad IM Multi-dose 6+ MO 2015-05-25 00:00:00 Completed [facility] Influenza Virus Vaccine Quad IM Multi-dose 6+ MO 2015-05-25 00:00:00 Completed [facility] Influenza Virus Vaccine Quad IM Multi-dose 6+ MO 2015-05-25 00:00:00 Completed [facility] Influenza Virus Vaccine Quad IM Multi-dose 6+ MO 2015-05-25 00:00:00 Completed [facility] Influenza Virus Vaccine Quad IM Multi-dose 6+ MO 2015-05-25 00:00:00 Completed [facility] Influenza Virus Vaccine Quad IM Multi-dose 6+ MO 2015-05-25 00:00:00 Completed [facility] Influenza Virus Vaccine Quad IM Multi-dose 6+ MO 2015-05-25 00:00:00 Completed [facility] Influenza Virus Vaccine Quad IM Multi-dose 6+ MO 2015-05-25 00:00:00 Completed [facility] Influenza Virus Vaccine Quad IM Multi-dose 6+ MO 2015-05-25 00:00:00 Completed [facility] Influenza Virus Vaccine Quad IM Multi-dose 6+ MO 2015-05-25 00:00:00 Completed [facility] Influenza Virus Vaccine Quad IM Multi-dose 6+ MO 2015-05-25 00:00:00 Completed [facility] Influenza Virus Vaccine Quad IM Multi-dose 6+ MO 2015-05-25 00:00:00 Completed [facility] Influenza Virus Vaccine Quad IM Multi-dose 6+ MO 2015-05-25 00:00:00 Completed [facility] Influenza Virus Vaccine Quad IM Multi-dose 6+ MO 2015-05-25 00:00:00 Completed [facility] Influenza Virus Vaccine Quad IM Multi-dose 6+ MO 2015-05-25 00:00:00 Completed [facility] Influenza Virus Vaccine Quad IM Multi-dose 6+ MO 2015-05-25 00:00:00 Completed [facility] Influenza Virus Vaccine Quad IM Multi-dose 6+ MO 2015-05-25 00:00:00 Completed [facility] Influenza Virus Vaccine Quad IM Multi-dose 6+ MO 2015-05-25 00:00:00 Completed [facility] Influenza Virus Vaccine Quad IM Multi-dose 6+ MO 2015-05-25 00:00:00 Completed [facility] Influenza Virus Vaccine Quad IM Multi-dose 6+ MO 2015-05-25 00:00:00 Completed [facility] Influenza Virus Vaccine Quad IM Multi-dose 6+ MO 2015-05-25 00:00:00 Completed [facility] Influenza Virus Vaccine Quad IM Multi-dose 6+ MO 2015-05-25 00:00:00 Completed [facility] Influenza Virus Vaccine Quad IM Multi-dose 6+ MO 2015-05-25 00:00:00 Completed [facility] Influenza Virus Vaccine Quad IM Multi-dose 6+ MO 2015-05-25 00:00:00 Completed [facility] Influenza Virus Vaccine Quad IM Multi-dose 6+ MO 2015-05-25 00:00:00 Completed [facility] Influenza Virus Vaccine Quad IM Multi-dose 6+ MO 2015-05-25 00:00:00 Completed [facility] Influenza Virus Vaccine Quad IM Multi-dose 6+ MO 2015-05-25 00:00:00 Completed [facility] Influenza Virus Vaccine Quad IM Multi-dose 6+ MO 2015-05-25 00:00:00 Completed [facility] Influenza Virus Vaccine Quad IM Multi-dose 6+ MO 2015-05-25 00:00:00 Completed [facility] Influenza Virus Vaccine Quad IM Multi-dose 6+ MO 2015-05-25 00:00:00 Completed [facility] Influenza Virus Vaccine Quad IM Multi-dose 6+ MO 2015-05-25 00:00:00 Completed [facility] Influenza Virus Vaccine Quad IM Multi-dose 6+ MO 2015-05-25 00:00:00 Completed [facility] Influenza Virus Vaccine Quad IM Multi-dose 6+ MO 2015-05-25 00:00:00 Completed [facility] Influenza Virus Vaccine Quad IM Multi-dose 6+ MO 2015-05-25 00:00:00 Completed [facility] Influenza Virus Vaccine Quad IM Multi-dose 6+ MO 2015-05-25 00:00:00 Completed [facility] Influenza Virus Vaccine Quad IM Multi-dose 6+ MO 2015-05-25 00:00:00 Completed [facility] Influenza Virus Vaccine Quad IM Multi-dose 6+ MO 2015-05-25 00:00:00 Completed [facility] Influenza Virus Vaccine Quad IM Multi-dose 6+ MO 2015-05-25 00:00:00 Completed [facility] Pneumococcal Polysaccharide, PPSV23 (PNEUMOVAX) Unknown Completed [facility] Influenza Virus Vaccine Quad IM 3+ YRS Unknown Completed [facility] TD, NOS Unknown Completed [facility] SARS-COV-2 COVID-19 PFIZER VACCINE Unknown Completed [facility] Influenza Virus Vaccine Quad IM Multi-dose 6+ MO Unknown Completed [facility] Pneumococcal Polysaccharide, PPSV23 (PNEUMOVAX) Unknown Completed [facility] Influenza Virus Vaccine Quad IM 3+ YRS Unknown Completed [facility] TD, NOS Unknown Completed [facility] SARS-COV-2 COVID-19 PFIZER VACCINE Unknown Completed [facility] Influenza Virus Vaccine Quad IM Multi-dose 6+ MO Unknown Completed [facility] Pneumococcal Polysaccharide, PPSV23 (PNEUMOVAX) Unknown Completed [facility] Influenza Virus Vaccine Quad IM 3+ YRS Unknown Completed [facility] TD, NOS Unknown Completed [facility] SARS-COV-2 COVID-19 PFIZER VACCINE Unknown Completed [facility] Influenza Virus Vaccine Quad IM Multi-dose 6+ MO Unknown Completed [facility] Pneumococcal Polysaccharide, PPSV23 (PNEUMOVAX) Unknown Completed [facility] Influenza Virus Vaccine Quad IM 3+ YRS Unknown Completed [facility] TD, NOS Unknown Completed [facility] SARS-COV-2 COVID-19 PFIZER VACCINE Unknown Completed [facility] Influenza Virus Vaccine Quad IM Multi-dose 6+ MO Unknown Completed [facility] Pneumococcal Polysaccharide, PPSV23 (PNEUMOVAX) Unknown [facility] Influenza Virus Vaccine Quad IM 3+ YRS Unknown Com[facility] – [place] TD, NOS Unknown Completed [facility] SARS-COV-2 COVID-19 PFIZER VACCINE Unknown Completed [facility] Influenza Virus Vaccine Quad IM Multi-dose 6+ MO Unknown Completed [facility] Pneumococcal Polysaccharide, PPSV23 (PNEUMOVAX) Unknown Completed [facility] Influenza Virus Vaccine Quad IM 3+ YRS Unknown Completed [facility] [place] TD, NOS Unknown Completed [facility] SARS-COV-2 COVID-19 PFIZER VACCINE Unknown Completed [facility] Influenza Virus Vaccine Quad IM Multi-dose 6+ MO Unknown Completed [facility] [place] Pneumococcal Polysaccharide, PPSV23 (PNEUMOVAX) Unknown Completed [facility] Influenza Virus Vaccine Quad IM 3+ YRS Unknown Completed [facility] [place] TD, NOS Unknown Completed [facility] SARS-COV-2 COVID-19 PFIZER VACCINE Unknown Completed [facility] Influenza Virus Vaccine Quad IM Multi-dose 6+ MO Unknown Completed [facility] [place] Pneumococcal Polysaccharide, PPSV23 (PNEUMOVAX) Unknown Completed [facility] Influenza Virus Vaccine Quad IM 3+ YRS Unknown Completed [facility] [place] TD, NOS Unknown Completed [facility] SARS-COV-2 COVID-19 PFIZER VACCINE Unknown Completed [facility] Influenza Virus Vaccine Quad IM Multi-dose 6+ MO Unknown Completed [facility] [place] Pneumococcal Polysaccharide, PPSV23 (PNEUMOVAX) Unknown Completed [facility] Influenza Virus Vaccine Quad IM 3+ YRS Unknown Completed [facility] [place] TD, NOS Unknown Completed [facility] SARS-COV-2 COVID-19 PFIZER VACCINE Unknown Completed [facility] Influenza Virus Vaccine Quad IM Multi-dose 6+ MO Unknown Completed [facility] Pneumococcal Polysaccharide, PPSV23 (PNEUMOVAX) Unknown Completed [facility] Influenza Virus Vaccine Quad IM 3+ YRS Unknown Completed [facility] [place] TD, NOS Unknown Completed [facility] SARS-COV-2 COVID-19 PFIZER VACCINE Unknown Completed [facility] Influenza Virus Vaccine Quad IM Multi-dose 6+ MO Unknown Completed [facility] Pneumococcal Polysaccharide, PPSV23 (PNEUMOVAX) Unknown Completed [facility] Influenza Virus Vaccine Quad .5 mL IM 6+ MO (FLUZONE/FLULAVAL/F LUARIX) Unknown Completed [facility] TD, NOS Unknown Completed [facility] SARS-COV-2 COVID-19 PFIZER VACCINE Unknown Completed [facility] Influenza Virus Vaccine Quad IM Multi-dose 6+ MO Unknown Completed [facility] Pneumococcal Polysaccharide, PPSV23 (PNEUMOVAX) Unknown Completed [facility] Influenza Virus Vaccine Quad .5 mL IM 6+ MO (FLUZONE/FLULAVAL/F LUARIX) Unknown Completed [facility] [place] TD, NOS Unknown Completed [facility] SARS-COV-2 COVID-19 PFIZER VACCINE Unknown Completed [facility] Influenza Virus Vaccine Quad IM Multi-dose 6+ MO Unknown Completed [facility] Pneumococcal Polysaccharide, PPSV23 (PNEUMOVAX) Unknown Completed [facility] Influenza Virus Vaccine Quad .5 mL IM 6+ MO (FLUZONE/FLULAVAL/F LUARIX) Unknown Completed [facility] TD, NOS Unknown Completed [facility] SARS-COV-2 COVID-19 PFIZER VACCINE Unknown Completed [facility] Influenza Virus Vaccine Quad IM Multi-dose 6+ MO Unknown Completed [facility] Pneumococcal Polysaccharide, PPSV23 (PNEUMOVAX) Unknown Completed [facility] Influenza Virus Vaccine Quad .5 mL IM 6+ MO (FLUZONE/FLULAVAL/F LUARIX) Unknown Completed [facility] TD, NOS Unknown Completed [facility] SARS-COV-2 COVID-19 PFIZER VACCINE Unknown Completed [facility] Influenza Virus Vaccine Quad IM Multi-dose 6+ MO Unknown Completed [facility] Pneumococcal Polysaccharide, PPSV23 (PNEUMOVAX) Unknown Completed [facility] Influenza Virus Vaccine Quad .5 mL IM 6+ MO (FLUZONE/FLULAVAL/F LUARIX) Unknown Completed [facility] TD, NOS Unknown Completed [facility] SARS-COV-2 COVID-19 PFIZER VACCINE Unknown Completed [facility] Influenza Virus Vaccine Quad IM Multi-dose 6+ MO Unknown Completed [facility] Pneumococcal Polysaccharide, PPSV23 (PNEUMOVAX) Unknown Completed [facility] Influenza Virus Vaccine Quad .5 mL IM 6+ MO (FLUZONE/FLULAVAL/F LUARIX) Unknown Completed [facility] [place] TD, NOS Unknown Completed [facility] SARS-COV-2 COVID-19 PFIZER VACCINE Unknown Completed [facility] Influenza Virus Vaccine Quad IM Multi-dose 6+ MO Unknown Completed [facility] Pneumococcal Polysaccharide, PPSV23 (PNEUMOVAX) Unknown Completed [facility] Influenza Virus Vaccine Quad .5 mL IM 6+ MO (FLUZONE/FLULAVAL/F LUARIX) Unknown Completed [facility] TD, NOS Unknown Completed [facility] SARS-COV-2 COVID-19 PFIZER VACCINE Unknown Completed [facility] Influenza Virus Vaccine Quad IM Multi-dose 6+ MO Unknown Completed [facility] Pneumococcal Polysaccharide, PPSV23 (PNEUMOVAX) Unknown Completed [facility] TD, NOS Unknown Completed [facility] Influenza Virus Vaccine Quad .5 mL IM 6+ MO (FLUZONE/FLULAVAL/F LUARIX) Unknown Completed [facility] SARS-COV-2 COVID-19 PFIZER VACCINE Unknown Completed [facility] Influenza Virus Vaccine Quad IM Multi-dose 6+ MO Unknown Completed [facility] Pneumococcal Polysaccharide, PPSV23 (PNEUMOVAX) Unknown Completed [facility] TD, NOS Unknown Completed [facility] Influenza Virus Vaccine Quad .5 mL IM 6+ MO (FLUZONE/FLULAVAL/F LUARIX) Unknown Completed [facility] SARS-COV-2 COVID-19 PFIZER VACCINE Unknown Completed [facility] Influenza Virus Vaccine Quad IM Multi-dose 6+ MO Unknown Completed [facility] Pneumococcal Polysaccharide, PPSV23 (PNEUMOVAX) Unknown Completed [facility] Influenza Virus Vaccine Quad IM 3+ YRS Unknown Completed [facility] [place] TD, NOS Unknown Completed [facility] SARS-COV-2 COVID-19 PFIZER VACCINE Unknown Completed [facility] Influenza Virus Vaccine Quad IM Multi-dose 6+ MO Unknown Completed [facility] Pneumococcal Polysaccharide, PPSV23 (PNEUMOVAX) [facility] Influenza Virus Vaccine Quad IM 3+ YRS Unknown Completed [facility] [place] TD, NOS Unknown Completed [facility] SARS-COV-2 COVID-19 PFIZER VACCINE Unknown Completed [facility] Influenza Virus Vaccine Quad IM Multi-dose 6+ MO Unknown Completed [facility] Pneumococcal Polysaccharide, PPSV23 (PNEUMOVAX) Unknown [facility] Influenza Virus Vaccine Quad IM 3+ YRS Unknown Completed [facility] TD, NOS Unknown Completed [facility] SARS-COV-2 COVID-19 PFIZER VACCINE Unknown Completed [facility] Influenza Virus Vaccine Quad IM Multi-dose 6+ MO Unknown Completed [facility] Pneumococcal Polysaccharide, PPSV23 (PNEUMOVAX) Unknown [facility] Influenza Virus Vaccine Quad IM 3+ YRS Unknown Completed [facility] [place] TD, NOS Unknown Completed [facility] SARS-COV-2 COVID-19 PFIZER VACCINE Unknown Completed [facility] Influenza Virus Vaccine Quad IM Multi-dose 6+ MO Unknown Completed [facility] Pneumococcal Polysaccharide, PPSV23 (PNEUMOVAX) Unknown Completed [facility] Influenza Virus Vaccine Quad IM 3+ YRS Unknown Completed [facility] [place] TD, NOS Unknown Completed [facility] [place] SARS-COV-2 COVID-19 PFIZER VACCINE Unknown Completed [facility] Influenza Virus Vaccine Quad IM Multi-dose 6+ MO Unknown Completed [facility] [place] Pneumococcal Polysaccharide, PPSV23 (PNEUMOVAX) Unknown Completed [facility] Influenza Virus Vaccine Quad IM 3+ YRS Unknown Completed [facility] [place] TD, NOS Unknown Completed [facility] SARS-COV-2 COVID-19 PFIZER VACCINE Unknown Completed [facility] Influenza Virus Vaccine Quad IM Multi-dose 6+ MO Unknown Completed [facility] [place] Pneumococcal Polysaccharide, PPSV23 (PNEUMOVAX) Unknown [facility] Influenza Virus Vaccine Quad IM 3+ YRS Unknown Completed [facility] [place] TD, NOS Unknown Completed [facility] SARS-COV-2 COVID-19 PFIZER VACCINE Unknown Completed [facility] Influenza Virus Vaccine Quad IM Multi-dose 6+ MO Unknown Completed [facility] [place] Pneumococcal Polysaccharide, PPSV23 (PNEUMOVAX) Unknown Completed [facility] Influenza Virus Vaccine Quad IM 3+ YRS Unknown Completed [facility] [place] TD, NOS Unknown Completed [facility] SARS-COV-2 COVID-19 PFIZER VACCINE Unknown Completed [facility] Influenza Virus Vaccine Quad IM Multi-dose 6+ MO Unknown Completed [facility] [place] Pneumococcal Polysaccharide, PPSV23 (PNEUMOVAX) Unknown Completed [facility] TD, NOS Unknown Completed [facility] [place] SARS-COV-2 COVID-19 PFIZER VACCINE Unknown Completed [facility] Influenza Virus Vaccine Quad IM 3+ YRS Unknown Completed [facility] Influenza Virus Vaccine Quad IM Multi-dose 6+ MO Unknown Completed [facility] [place] Pneumococcal Polysaccharide, PPSV23 (PNEUMOVAX) Unknown Completed [facility] Influenza Virus Vaccine Quad IM 3+ YRS Unknown Completed [facility] [place] TD, NOS Unknown Completed [facility] SARS-COV-2 COVID-19 PFIZER VACCINE Unknown Completed [facility] Influenza Virus Vaccine Quad IM Multi-dose 6+ MO Unknown Completed [facility] [place] Pneumococcal Polysaccharide, PPSV23 (PNEUMOVAX) Unknown Completed [facility] Influenza Virus Vaccine Quad IM 3+ YRS Unknown Completed [facility] [place] TD, NOS Unknown Completed [facility] SARS-COV-2 COVID-19 PFIZER VACCINE Unknown Completed [facility] Influenza Virus Vaccine Quad IM Multi-dose 6+ MO Unknown Completed [facility] [place] Pneumococcal Polysaccharide, PPSV23 (PNEUMOVAX) Unknown Completed [facility] Influenza Virus Vaccine Quad IM 3+ YRS Unknown Completed [facility] [place] TD, NOS Unknown Completed [facility] SARS-COV-2 COVID-19 PFIZER VACCINE Unknown Completed [facility] Influenza Virus Vaccine Quad IM Multi-dose 6+ MO Unknown Completed [facility] Pneumococcal Polysaccharide, PPSV23 (PNEUMOVAX) Unknown Completed [facility] Influenza Virus Vaccine Quad IM 3+ YRS Unknown Completed [facility] [place] TD, NOS Unknown Completed [facility] SARS-COV-2 COVID-19 PFIZER VACCINE Unknown Completed [facility] Influenza Virus Vaccine Quad IM Multi-dose 6+ MO Unknown Completed [facility] Pneumococcal Polysaccharide, PPSV23 (PNEUMOVAX) Unknown Completed [facility] TD, NOS Unknown Completed [facility] Influenza Virus Vaccine Quad .5 mL IM 6+ MO (FLUZONE/FLULAVAL/F LUARIX) Unknown Completed [facility] [place] SARS-COV-2 COVID-19 PFIZER VACCINE Unknown Completed [facility] Influenza Virus Vaccine Quad IM Multi-dose 6+ MO Unknown Completed [facility] [place] Pneumococcal Polysaccharide, PPSV23 (PNEUMOVAX) Unknown Completed [facility] Influenza Virus Vaccine Quad IM 3+ YRS Unknown Completed [facility] [place] TD, NOS Unknown Completed [facility] SARS-COV-2 COVID-19 PFIZER VACCINE Unknown Completed [facility] Influenza Virus Vaccine Quad IM Multi-dose 6+ MO Unknown Completed [facility] Pneumococcal Polysaccharide, PPSV23 (PNEUMOVAX) Unknown Completed [facility] Influenza Virus Vaccine Quad IM 3+ YRS Unknown Completed [facility] [place] TD, NOS Unknown Completed [facility] SARS-COV-2 COVID-19 PFIZER VACCINE Unknown Completed [facility] Influenza Virus Vaccine Quad IM Multi-dose 6+ MO Unknown Completed [facility] Pneumococcal Polysaccharide, PPSV23 (PNEUMOVAX) Unknown Completed [facility] Influenza Virus Vaccine Quad IM 3+ YRS Unknown Completed [facility] [place] TD, NOS Unknown Completed [facility] SARS-COV-2 COVID-19 PFIZER VACCINE Unknown Completed [facility] Influenza Virus Vaccine Quad IM Multi-dose 6+ MO Unknown Completed [facility] Pneumococcal Polysaccharide, PPSV23 (PNEUMOVAX) Unknown Completed [facility] TD, NOS Unknown Completed [facility] SARS-COV-2 COVID-19 PFIZER VACCINE Unknown Completed [facility] Influenza Virus Vaccine Quad IM Multi-dose 6+ MO Unknown Completed [facility] Pneumococcal Polysaccharide, PPSV23 (PNEUMOVAX) Unknown Completed [facility] Influenza Virus Vaccine Quad IM 3+ YRS Unknown Completed [facility] [place] TD, NOS Unknown Completed [facility] SARS-COV-2 COVID-19 PFIZER VACCINE Unknown Completed [facility] Influenza Virus Vaccine Quad IM Multi-dose 6+ MO Unknown Completed [facility] Pneumococcal Polysaccharide, PPSV23 (PNEUMOVAX) Unknown Completed [facility] Influenza Virus Vaccine Quad IM 3+ YRS Unknown Completed [facility] [place] TD, NOS Unknown Completed [facility] Influenza Virus Vaccine Quad IM Multi-dose 6+ MO Unknown Completed [facility] Pneumococcal Polysaccharide, PPSV23 (PNEUMOVAX) Unknown Completed [facility] Influenza Virus Vaccine Quad IM 3+ YRS Unknown Completed [facility] [place] TD, NOS Unknown Completed [facility] SARS-COV-2 COVID-19 PFIZER VACCINE Unknown Completed [facility] Influenza Virus Vaccine Quad IM 3+ YRS Unknown Completed [facility] Influenza Virus Vaccine Quad IM Multi-dose 6+ MO Unknown Completed [facility] Pneumococcal Polysaccharide, PPSV23 (PNEUMOVAX) Unknown Completed [facility] Influenza Virus Vaccine Quad IM 3+ YRS Unknown Completed [facility] TD, NOS Unknown Completed [facility] SARS-COV-2 COVID-19 PFIZER VACCINE Unknown Completed [facility] Influenza Virus Vaccine Quad IM Multi-dose 6+ MO Unknown Completed [facility] Pneumococcal Polysaccharide, PPSV23 (PNEUMOVAX) Unknown Completed [facility] Influenza Virus Vaccine Quad IM 3+ YRS Unknown Completed [facility] TD, NOS Unknown Completed [facility] SARS-COV-2 COVID-19 PFIZER VACCINE Unknown Completed [facility] Influenza Virus Vaccine Quad IM Multi-dose 6+ MO Unknown Completed [facility] Vital Signs Vital Name Observation Time Observation Value Comments S ource Heart rate 2024-10-03 13:00:00 92 /min Mack hurd [facility] Respiratory rate 2024-10-03 13:00:00 20 /min [facility] Oxygen saturation in Arterial blood by Pulse oximetry 2024-10-03 13:00:00 97 /min [facility] Systolic blood pressure 2024-10-03 10:00:00 132 mm[Hg] [facility] Diastolic blood pressure 2024-10-03 10:00:00 78 mm[Hg] [facility] Body temperature 2024-10-02 22:00:00 36.56 Sara [facility] Body height 2024-10-01 10:40:18 180 cm Juan Daniel [facility] Body weight 2024-10-01 10:40:18 95 kg Juan Daniel [facility] BMI 2024-10-01 10:40:18 29.32 kg/m2 Juan Daniel [facility] Systolic blood pressure 2024-10-05 02:00:00 169 mm[Hg] [facility] Diastolic blood pressure 2024-10-05 02:00:00 90 mm[Hg] [facility] Heart rate 2024-10-05 02:00:00 87 /[facility] Body temperature 2024-10-05 02:00:00 36.61 Sara [facility] Respiratory rate 2024-10-05 02:00:00 18 /min [facility] Oxygen saturation in Arterial blood by Pulse oximetry 2024-10-05 02:00:00 100 /min [facility] Body height 2024-10-04 22:34:00 188 cm [facility] Body weight 2024-10-04 22:34:00 131.09 kg [facility] BMI 2024-10-04 22:34:00 37.11 kg/m2 [facility] Systolic blood pressure 2024-10-04 21:46:00 122 mm[Hg] [facility] Diastolic blood pressure 2024-10-04 21:46:00 78 mm[Hg] [facility] Heart rate 2024-10-04 21:41:00 76 /min [facility] Body temperature 2024-10-04 21:41:00 29.33 Sara [facility] Body weight 2024-10-04 21:41:[address] [facility] BMI 2024-10-04 21:41:00 37.11 kg/m2 [facility] Oxygen saturation in Arterial blood by Pulse oximetry 2024-10-04 21:41:00 97 /min [facility] Heart rate 2024-10-03 13:00:00 92 /min Pkalexandre sternwandy [facility] Respiratory rate 2024-10-03 13:00:00 20 /min [facility] Ang [facility] Oxygen saturation in Arterial blood by Pulse oximetry 2024-10-03 13:00:00 97 /min Annika brown [facility] Systolic blood pressure 2024-10-03 10:00:00 132 mm[Hg] [facility] Her brown [facility] Diastolic blood pressure 2024-10-03 10:00:00 78 mm[Hg] [facility] Body temperature 2024-10-02 22:00:00 36.56 [facility] Body height 2024-10-01 10:40:18 180 cm Juan Daniel Albertann [facility] Body weight 2024-10-01 10:40:18 95 kg Juan Daniel Albertann Epic BMI 2024-10-01 10:40:18 29.32 kg/m2 Juan Daniel jose manuell [facility] Heart rate 2024-10-03 13:00:00 92 /min [facility] leenal [facility] Respiratory rate 2024-10-03 13:00:00 20 /min [facility] Oxygen saturation in Arterial blood by Pulse oximetry 2024-10-03 13:00:00 97 /min [facility] Her brown [facility] Systolic blood pressure 2024-10-03 10:00:00 132 mm[Hg] [facility] Her brown [facility] Diastolic blood pressure 2024-10-03 10:00:00 78 mm[Hg] [facility] Body temperature 2024-10-02 22:00:00 36.56 [facility] Body height 2024-10-01 10:40:18 180 cm Juan Daniel Albertann [facility] Body weight 2024-10-01 10:40:18 95 kg Juan Daniel vega [place] Epic BMI 2024-10-01 10:40:18 29.32 kg/m2 Juan Danielimmanuel richard [facility] Systolic blood pressure 2024-09-29 20:21:00 133 mm[Hg] [facility] Diastolic blood pressure 2024-09-29 20:21:00 89 mm[Hg] [facility] Heart rate 2024-09-29 20:21:00 69 /min [facility] Respiratory rate 2024-09-29 20:20:00 18 /min [facility] Body height 2024-09-29 20:20:00 188 cm [facility] Body weight 2024-09-29 20:20:00 131.226 kg [facility] BMI 2024-09-29 20:20:00 37.14 kg/m2 [facility] Oxygen saturation in Arterial blood by Pulse oximetry 2024-09-29 20:20:00 98 /min [facility] Systolic blood pressure 2024-09-29 19:55:00 133 mm[Hg] [facility] Diastolic blood pressure 2024-09-29 19:55:00 89 mm[Hg] [facility] Heart rate 2024-09-29 19:55:00 69 /min [facility] Respiratory rate 2024-09-29 19:52:00 18 /min [facility] Body height 2024-09-29 19:52:00 188 cm [facility] Body weight 2024-09-29 19:52:[address] [facility] BMI 2024-09-29 19:52:00 37.14 kg/m2 [facility] Oxygen saturation in Arterial blood by Pulse oximetry 2024-09-29 19:52:00 98 /min [facility] Systolic blood pressure 2024-09-20 21:31:00 169 mm[Hg] [facility] Diastolic blood pressure 2024-09-20 21:31:00 115 mm[Hg] [facility] Heart rate 2024-09-20 21:31:00 84 /min [facility] Body temperature 2024-09-20 21:31:00 36.44 Sara [facility] Respiratory rate 2024-09-20 21:31:00 20 /min [facility] Oxygen saturation in Arterial blood by Pulse oximetry 2024-09-20 21:31:00 97 /min [facility] Body weight 2024-09-20 10:14:[address] [facility] BMI 2024-09-20 10:14:00 37.22 kg/m2 [facility] Body height 2024-09-19 21:26:[address] [facility] Systolic blood pressure 2024-09-18 23:05:00 146 mm[Hg] [facility] Diastolic blood pressure 2024-09-18 23:05:00 113 mm[Hg] [facility] Heart rate 2024-09-18 23:05:00 69 /min [facility] Respiratory rate 2024-09-18 23:05:00 19 /min [facility] Oxygen saturation in Arterial blood by Pulse oximetry 2024-09-18 23:05:00 99 /min [facility] Body temperature 2024-09-18 20:35:00 36.67 Sara [facility] Body height 2024-09-18 20:33:00 188 cm [facility] Body weight 2024-09-18 20:33:00 129.729 kg [facility] BMI 2024-09-18 20:33:00 36.72 kg/m2 [facility] Systolic blood pressure 2024-08-26 20:29:00 104 mm[Hg] [facility] Diastolic blood pressure 2024-08-26 20:29:00 74 mm[Hg] [facility] Heart rate 2024-08-26 20:29:00 81 /min [facility] Body temperature 2024-08-26 20:29:00 26.39 Sara [facility] Body weight 2024-08-26 20:29:00 128.368 kg [facility] BMI 2024-08-26 20:29:00 36.34 kg/m2 [facility] Oxygen saturation in Arterial blood by Pulse oximetry 2024-08-26 20:29:00 97 /min [facility] Systolic blood pressure 2024-08-19 18:00:00 100 mm[Hg] [facility] Diastolic blood pressure 2024-08-19 18:00:00 65 mm[Hg] [facility] Heart rate 2024-08-19 18:00:00 85 /min [facility] Oxygen saturation in Arterial blood by Pulse oximetry 2024-08-19 18:00:00 97 /min [facility] Body temperature 2024-08-19 17:00:00 36.67 Sara [facility] Respiratory rate 2024-08-19 17:00:00 14 /min [facility] Body weight 2024-08-19 09:46:00 124.966 kg [facility] BMI 2024-08-19 09:46:00 35.37 kg/m2 [facility] Body height 2024-08-19 01:05:00 188 cm [facility] Systolic blood pressure 2024-08-15 18:26:00 113 mm[Hg] [facility] Diastolic blood pressure 2024-08-15 18:26:00 79 mm[Hg] [facility] Heart rate 2024-08-15 18:26:00 75 /min [facility] Body temperature 2024-08-15 18:26:00 36 Sara [facility] Respiratory rate 2024-08-15 18:26:00 20 /min [facility] Oxygen saturation in Arterial blood by Pulse oximetry 2024-08-15 18:26:00 94 /min [facility] Body weight 2024-08-15 09:31:00 127.96 kg [facility] BMI 2024-08-15 09:31:00 36.22 kg/m2 [facility] Body height 2024-08-12 20:53:14 188 cm [facility] Systolic blood pressure 2024-08-12 22:05:00 136 mm[Hg] [facility] Diastolic blood pressure 2024-08-12 22:05:00 97 mm[Hg] [facility] Heart rate 2024-08-12 22:05:00 70 /min [facility] Respiratory rate 2024-08-12 22:05:00 16 /min [facility] Oxygen saturation in Arterial blood by Pulse oximetry 2024-08-12 22:05:00 97 /min [facility] Body height 2024-08-12 20:53:14 188 cm [facility] Body weight 2024-08-12 20:53:14 128.822 kg [facility] BMI 2024-08-12 20:53:14 36.22 kg/m2 [facility] Body temperature 2024-08-12 18:08:00 36.39 Sara [facility] Systolic blood pressure 2024-08-02 00:25:00 126 mm[Hg] [facility] Diastolic blood pressure 2024-08-02 00:25:00 94 mm[Hg] [facility] Heart rate 2024-08-02 00:25:00 108 /min [facility] Body temperature 2024-08-01 22:11:00 36.5 Sara [facility] Respiratory rate 2024-08-01 22:11:00 18 /min [facility] Oxygen saturation in Arterial blood by Pulse oximetry 2024-08-01 22:11:00 97 /min [facility] Body weight 2024-08-01 09:41:00 130.318 kg [facility] BMI 2024-08-01 09:41:00 36.89 kg/m2 [facility] Body height 2024-07-31 19:45:00 188 cm [facility] Heart rate 2024-07-28 21:00:00 109 /min [facility] Respiratory rate 2024-07-28 21:00:00 15 /min [facility] Oxygen saturation in Arterial blood by Pulse oximetry 2024-07-28 21:00:00 95 /min [facility] Systolic blood pressure 2024-07-28 20:23:00 160 mm[Hg] [facility] Diastolic blood pressure 2024-07-28 20:23:00 105 mm[Hg] [facility] Body temperature 2024-07-28 20:23:00 36.61 Sara [facility] Body height 2024-07-28 20:23:00 188 cm [facility] Body weight 2024-07-28 20:23:00 127.007 kg [facility] BMI 2024-07-28 20:23:00 35.95 kg/m2 [facility] Systolic blood pressure 2024-07-21 19:48:00 107 mm[Hg] [facility] Diastolic blood pressure 2024-07-21 19:48:00 76 mm[Hg] [facility] Heart rate 2024-07-21 17:06:00 96 /min [facility] Body temperature 2024-07-21 17:06:00 36.33 Sara [facility] Respiratory rate 2024-07-21 17:06:00 20 /min [facility] Oxygen saturation in Arterial blood by Pulse oximetry 2024-07-21 17:06:00 96 /min [facility] Body weight 2024-07-21 10:00:00 127.007 kg [facility] BMI 2024-07-21 10:00:00 35.95 kg/m2 [facility] Body height 2024-07-13 17:52:00 188 cm [facility] Systolic blood pressure 2024-07-20 00:45:00 122 mm[Hg] [facility] Diastolic blood pressure 2024-07-20 00:45:00 96 mm[Hg] [facility] Heart rate 2024-07-20 00:45:00 93 /min [facility] Respiratory rate 2024-07-20 00:45:00 13 /min [facility] Oxygen saturation in Arterial blood by Pulse oximetry 2024-07-20 00:45:00 97 /min [facility] Body temperature 2024-07-19 18:05:00 36.78 Sara [facility] Body weight 2024-07-19 10:57:00 126.191 kg [facility] BMI 2024-07-19 10:57:00 35.95 kg/m2 [facility] Body height 2024-07-13 17:52:00 188 cm [facility] Systolic blood pressure 2024-07-18 14:05:00 130 mm[Hg] [facility] Diastolic blood pressure 2024-07-18 14:05:00 90 mm[Hg] [facility] Heart rate 2024-07-18 14:05:00 82 /min [facility] Body temperature 2024-07-18 14:05:00 36.22 Sara [facility] Respiratory rate 2024-07-18 14:05:00 16 /min [facility] Oxygen saturation in Arterial blood by Pulse oximetry 2024-07-18 14:05:00 95 /min [facility] Body weight 2024-07-18 11:04:00 126.132 kg [facility] BMI 2024-07-18 11:04:00 35.72 kg/m2 [facility] Body height 2024-07-13 17:52:00 188 cm [facility] Systolic blood pressure 2024-07-13 17:12:00 157 mm[Hg] [facility] Diastolic blood pressure 2024-07-13 17:12:00 122 mm[Hg] [facility] Heart rate 2024-07-13 17:12:00 101 /min [facility] Oxygen saturation in Arterial blood by Pulse oximetry 2024-07-13 17:12:00 96 /min [facility] Respiratory rate 2024-07-13 17:10:00 18 /min [facility] Body height 2024-07-13 17:10:00 188 cm [facility] Body weight 2024-07-13 17:10:00 136.896 kg [facility] BMI 2024-07-13 17:10:00 38.75 kg/m2 [facility] Systolic blood pressure 2024-07-13 16:13:00 150 mm[Hg] [facility] Diastolic blood pressure 2024-07-13 16:13:00 107 mm[Hg] [facility] Heart rate 2024-07-13 16:13:00 96 /min [facility] Oxygen saturation in Arterial blood by Pulse oximetry 2024-07-13 16:13:00 98 /min [facility] Body temperature 2024-07-13 16:10:00 35.72 Sara [facility] Body height 2024-07-13 16:10:00 188 cm [facility] Body weight 2024-07-13 16:10:00 136.533 kg [facility] BMI 2024-07-13 16:10:00 38.65 kg/m2 [facility] Systolic blood pressure 2024-07-04 17:24:00 138 mm[Hg] [facility] Diastolic blood pressure 2024-07-04 17:24:00 95 mm[Hg] [facility] Heart rate 2024-07-04 17:24:00 82 /min [facility] Body temperature 2024-07-04 17:24:00 36.28 Sara [facility] Respiratory rate 2024-07-04 17:24:00 19 /min [facility] Oxygen saturation in Arterial blood by Pulse oximetry 2024-07-04 17:24:00 97 /min [facility] Body weight 2024-07-04 09:34:00 137.485 kg [facility] BMI 2024-07-04 09:34:00 38.92 kg/m2 [facility] Body height 2024-07-03 21:17:00 188 cm [facility] Systolic blood pressure 2024-06-20 16:11:00 131 mm[Hg] [facility] Diastolic blood pressure 2024-06-20 16:11:00 93 mm[Hg] [facility] Heart rate 2024-06-20 16:10:00 84 /min [facility] Body temperature 2024-06-20 16:10:00 36 Sara [facility] Body height 2024-06-20 16:10:00 188 cm [facility] Body weight 2024-06-20 16:10:00 135.626 kg [facility] BMI 2024-06-20 16:10:00 38.39 kg/m2 [facility] Oxygen saturation in Arterial blood by Pulse oximetry 2024-06-20 16:10:00 97 /min [facility] Systolic blood pressure 2024-06-01 14:47:00 126 mm[Hg] [facility] Diastolic blood pressure 2024-06-01 14:47:00 88 mm[Hg] [facility] Heart rate 2024-06-01 14:47:00 84 /min [facility] Body temperature 2024-06-01 14:47:00 35.67 Sara [facility] Respiratory rate 2024-06-01 14:47:00 18 /min [facility] Body height 2024-06-01 14:47:00 188 cm [facility] Body weight 2024-06-01 14:47:[address] [facility] BMI 2024-06-01 14:47:00 37.04 kg/m2 [facility] Oxygen saturation in Arterial blood by Pulse oximetry 2024-06-01 14:47:00 98 /min [facility] Systolic blood pressure 2024-05-20 19:42:00 115 mm[Hg] [facility] Diastolic blood pressure 2024-05-20 19:42:00 76 mm[Hg] [facility] Heart rate 2024-05-20 19:42:00 75 /min [facility] Body temperature 2024-05-20 19:42:00 36 Sara [facility] Body height 2024-05-20 19:42:00 188 cm [facility] Body weight 2024-05-20 19:42:00 128.822 kg [facility] BMI 2024-05-20 19:42:00 36.46 kg/m2 [facility] Oxygen saturation in Arterial blood by Pulse oximetry 2024-05-20 19:42:00 98 /min [facility] Systolic blood pressure 2024-05-17 21:35:00 115 mm[Hg] [facility] Diastolic blood pressure 2024-05-17 21:35:00 69 mm[Hg] [facility] Heart rate 2024-05-17 21:35:00 74 /min [facility] Oxygen saturation in Arterial blood by Pulse oximetry 2024-05-17 21:35:00 96 /min [facility] Body temperature 2024-05-17 20:30:00 35.89 Sara [facility] Respiratory rate 2024-05-17 18:00:00 21 /min [facility] Body weight 2024-05-17 08:11:[address] [facility] BMI 2024-05-17 08:11:00 37.08 kg/m2 [facility] Body height 2024-05-15 05:14:[address] [facility] Systolic blood pressure 2024-04-25 15:44:00 117 mm[Hg] [facility] Diastolic blood pressure 2024-04-25 15:44:00 89 mm[Hg] [facility] Heart rate 2024-04-25 15:44:00 95 /min [facility] Oxygen saturation in Arterial blood by Pulse oximetry 2024-04-25 15:44:00 99 /min [facility] Respiratory rate 2024-04-25 15:41:00 17 /min [facility] Body height 2024-04-25 15:41:00 188 cm [facility] Body weight 2024-04-25 15:41:00 129.865 kg [facility] BMI 2024-04-25 15:41:00 36.76 kg/m2 [facility] Body height 2024-04-19 15:01:00 188 cm [facility] Body weight 2024-04-19 15:01:00 131.044 kg [facility] BMI 2024-04-19 15:01:00 37.09 kg/m2 [facility] Systolic blood pressure 2024-04-13 14:56:00 115 mm[Hg] [facility] Diastolic blood pressure 2024-04-13 14:56:00 79 mm[Hg] [facility] Heart rate 2024-04-13 14:56:00 96 /min [facility] Body temperature 2024-04-13 14:56:00 35.72 Sara [facility] Body height 2024-04-13 14:56:00 188 cm [facility] 2024-04-13 14:56:00 131.18 kg [facility] BMI 2024-04-13 14:56:00 37.13 kg/m2 [facility] Oxygen saturation in Arterial blood by Pulse oximetry 2024-04-13 14:56:00 98 /min [facility] Systolic blood pressure 2024-04-13 14:57:00 115 mm[Hg] [facility] Diastolic blood pressure 2024-04-13 14:57:00 79 mm[Hg] [facility] Heart rate 2024-04-13 14:57:00 96 /min [facility] Body temperature 2024-04-13 14:57:00 35.72 Sara [facility] Body height 2024-04-13 14:57:00 188 cm [facility] Body weight 2024-04-13 14:57:00 131.18 kg [facility] BMI 2024-04-13 14:57:00 37.13 kg/m2 [facility] Oxygen saturation in Arterial blood by Pulse oximetry 2024-04-13 14:57:00 98 /min [facility] Systolic blood pressure 2024-04-06 16:17:00 138 mm[Hg] [facility] Diastolic blood pressure 2024-04-06 16:17:00 99 mm[Hg] [facility] Heart rate 2024-04-06 16:17:00 73 /min [facility] Body temperature 2024-04-06 16:17:00 36.33 Sara [facility] Respiratory rate 2024-04-06 16:17:00 20 /min [facility] Oxygen saturation in Arterial blood by Pulse oximetry 2024-04-06 16:17:00 97 /min [facility] Body weight 2024-04-06 08:08:00 134.99 kg [facility] BMI 2024-04-06 08:08:00 38.21 kg/m2 [facility] Body height 2024-04-04 21:08:00 188 cm [facility] Systolic blood pressure 2024-03-05 02:30:00 143 mm[Hg] [facility] Diastolic blood pressure 2024-03-05 02:30:00 109 mm[Hg] [facility] Heart rate 2024-03-05 02:30:00 94 /min [facility] Respiratory rate 2024-03-05 02:30:00 18 /min [facility] Oxygen saturation in Arterial blood by Pulse oximetry 2024-03-05 02:30:00 98 /min [facility] Body temperature 2024-03-05 00:34:00 36.78 Sara [facility] Body height 2024-03-05 00:34:00 188 cm [facility] Body weight 2024-03-05 00:34:00 142.883 kg [facility] BMI 2024-03-05 00:34:00 40.44 kg/m2 [facility] Systolic blood pressure 2024-01-05 18:35:00 133 mm[Hg] [facility] Diastolic blood pressure 2024-01-05 18:35:00 90 mm[Hg] [facility] Heart rate 2024-01-05 18:35:00 135 /min [facility] Body height 2024-01-05 18:35:00 188 cm [facility] Body weight 2024-01-05 18:35:00 136.351 kg [facility] BMI 2024-01-05 18:35:00 38.59 kg/m2 [facility] Oxygen saturation in Arterial blood by Pulse oximetry 2024-01-05 18:35:00 99 /min [facility] Systolic blood pressure 2023-11-18 19:41:00 124 mm[Hg] [facility] Diastolic blood pressure 2023-11-18 19:41:00 87 mm[Hg] [facility] Heart rate 2023-11-18 19:41:00 88 /[facility] Body temperature 2023-11-18 19:41:00 35.72 Sara [facility] Body height 2023-11-18 19:41:00 188 cm [facility] Body weight 2023-11-18 19:41:00 140.615 kg [facility] BMI 2023-11-18 19:41:00 39.80 kg/m2 [facility] Oxygen saturation in Arterial blood by Pulse oximetry 2023-11-18 19:41:00 96 /min [facility] Systolic blood pressure 2023-09-02 19:36:00 125 mm[Hg] [facility] Diastolic blood pressure 2023-09-02 19:36:00 73 mm[Hg] [facility] Heart rate 2023-09-02 19:36:00 80 /min [facility] Body height 2023-09-02 19:36:00 190.5 cm [facility] Body weight 2023-09-02 19:36:00 137.576 kg [facility] BMI 2023-09-02 19:36:00 37.91 kg/m2 [facility] Oxygen saturation in Arterial blood by Pulse oximetry 2023-09-02 19:36:00 98 /min [facility] Systolic blood pressure 2023-05-01 15:43:00 130 mm[Hg] [facility] Diastolic blood pressure 2023-05-01 15:43:00 90 mm[Hg] [facility] Heart rate 2023-05-01 15:43:00 82 /min [facility] Body temperature 2023-05-01 15:43:00 36.11 Sara [facility] Respiratory rate 2023-05-01 15:43:00 18 /min [facility] Body height 2023-05-01 15:43:00 188 cm [facility] Body weight 2023-05-01 15:43:00 139.708 kg [facility] BMI 2023-05-01 15:43:00 39.54 kg/m2 [facility] Oxygen saturation in Arterial blood by Pulse oximetry 2023-05-01 15:43:00 97 /min [facility] Systolic blood pressure 2023-04-09 14:58:00 122 mm[Hg] [facility] Diastolic blood pressure 2023-04-09 14:58:00 88 mm[Hg] [facility] Heart rate 2023-04-09 14:58:00 77 /min [facility] Body temperature 2023-04-09 14:58:00 29.33 Sara [facility] Respiratory rate 2023-04-09 14:58:00 18 /min [facility] Body weight 2023-04-09 14:58:[address] [facility] BMI 2023-04-09 14:58:00 42.86 kg/m2 [facility] Oxygen saturation in Arterial blood by Pulse oximetry 2023-04-09 14:58:00 97 /min [facility] Systolic blood pressure 2023-03-28 01:00:00 126 mm[Hg] [facility] Diastolic blood pressure 2023-03-28 01:00:00 110 mm[Hg] [facility] Heart rate 2023-03-28 01:00:00 94 /min [facility] Body temperature 2023-03-28 01:00:00 36.89 Sara [facility] Respiratory rate 2023-03-28 01:00:00 18 /min [facility] Oxygen saturation in Arterial blood by Pulse oximetry 2023-03-28 01:00:00 98 /min [facility] Systolic blood pressure 2022-10-27 15:47:00 124 mm[Hg] [facility] Diastolic blood pressure 2022-10-27 15:47:00 85 mm[Hg] [facility] Heart rate 2022-10-27 15:47:00 76 /min [facility] Respiratory rate 2022-10-27 15:47:00 20 /min [facility] Body height 2022-10-27 15:47:[address] [facility] Body weight 2022-10-27 15:47:00 135.626 kg [facility] BMI 2022-10-27 15:47:00 40.55 kg/m2 [facility] Oxygen saturation in Arterial blood by Pulse oximetry 2022-10-27 15:47:00 98 /min [facility] Systolic blood pressure 2022-09-24 15:52:00 110 mm[Hg] [facility] Diastolic blood pressure 2022-09-24 15:52:00 79 mm[Hg] [facility] Heart rate 2022-09-24 15:52:00 77 /min [facility] Body temperature 2022-09-24 15:52:00 36.17 Sara [facility] Respiratory rate 2022-09-24 15:52:00 18 /min [facility] Body height 2022-09-24 15:52:00 188 cm [facility] Body weight 2022-09-24 15:52:[address] [facility] BMI 2022-09-24 15:52:00 37.75 kg/m2 Univ [facility] Oxygen saturation in Arterial blood by Pulse oximetry 2022-09-24 15:52:00 94 /min [facility] Systolic blood pressure 2022-08-21 15:52:00 124 mm[Hg] [facility] Diastolic blood pressure 2022-08-21 15:52:00 89 mm[Hg] [facility] Heart rate 2022-08-21 15:52:00 89 /min [facility] Respiratory rate 2022-08-21 15:52:00 20 /min [facility] Body height 2022-08-21 15:52:00 188 cm [facility] Body weight 2022-08-21 15:52:00 134.265 kg [facility] BMI 2022-08-21 15:52:00 38.00 kg/m2 [facility] Oxygen saturation in Arterial blood by Pulse oximetry 2022-08-21 15:52:00 98 /min [facility] Systolic blood pressure 2022-08-21 15:39:00 124 mm[Hg] [facility] Diastolic blood pressure 2022-08-21 15:39:00 89 mm[Hg] [facility] Heart rate 2022-08-21 15:39:00 89 /min [facility] Respiratory rate 2022-08-21 15:39:00 20 /min [facility] Body height 2022-08-21 15:39:[address] [facility] Body weight 2022-08-21 15:39:[address] [facility] BMI 2022-08-21 15:39:00 38.06 kg/m2 Univ [facility] Oxygen saturation in Arterial blood by Pulse oximetry 2022-08-21 15:39:00 98 /min [facility] Systolic blood pressure 2022-06-09 23:56:00 136 mm[Hg] [facility] Diastolic blood pressure 2022-06-09 23:56:00 99 mm[Hg] [facility] Heart rate 2022-06-09 23:56:00 98 /min [facility] Body temperature 2022-06-09 22:12:00 35.83 Sara [facility] Respiratory rate 2022-06-09 22:12:00 18 /min [facility] Oxygen saturation in Arterial blood by Pulse oximetry 2022-06-09 22:12:00 98 /min [facility] Body weight 2022-06-09 09:22:00 130.999 kg [facility] BMI 2022-06-09 09:22:00 37.08 kg/m2 [facility] Body height 2022-06-06 00:36:00 188 cm [facility] Systolic blood pressure 2022-06-04 12:45:00 139 mm[Hg] [facility] Diastolic blood pressure 2022-06-04 12:45:00 111 mm[Hg] [facility] Heart rate 2022-06-04 12:45:00 92 /min [facility] Body temperature 2022-06-04 12:45:00 36.56 Sara [facility] Respiratory rate 2022-06-04 12:45:00 18 /min [facility] [facility] Body height 2022-06-04 12:45:[address] [facility] Body weight 2022-06-04 12:45:00 131.543 kg [facility] BMI 2022-06-04 12:45:00 37.23 kg/m2 [facility] Oxygen saturation in Arterial blood by Pulse oximetry 2022-06-04 12:45:00 96 /min [facility] Systolic blood pressure 2022-06-03 15:32:00 126 mm[Hg] [facility] Diastolic blood pressure 2022-06-03 15:32:00 86 mm[Hg] [facility] Heart rate 2022-06-03 15:32:00 81 /min [facility] Respiratory rate 2022-06-03 15:32:00 18 /min [facility] Body temperature 2022-06-03 12:13:00 35.83 Sara [facility] Oxygen saturation in Arterial blood by Pulse oximetry 2022-06-03 12:13:00 99 /min [facility] Body weight 2022-06-03 11:00:[address] [facility] BMI 2022-06-03 11:00:00 40.91 kg/m2 Univ [facility] Body height 2022-06-01 21:33:00 188 cm [facility] Systolic blood pressure 2022-05-28 16:20:00 149 mm[Hg] [facility] Diastolic blood pressure 2022-05-28 16:20:00 108 mm[Hg] [facility] Respiratory rate 2022-05-28 16:20:00 22 /min [facility] Oxygen saturation in Arterial blood by Pulse oximetry 2022-05-28 16:20:00 99 /min [facility] Body temperature 2022-05-22 20:00:00 36.67 Sara [facility] Systolic blood pressure 2022-05-22 19:00:00 139 mm[Hg] [facility] Diastolic blood pressure 2022-05-22 19:00:00 100 mm[Hg] [facility] Heart rate 2022-05-22 19:00:00 101 /min [facility] Respiratory rate 2022-05-22 19:00:00 18 /min [facility] Oxygen saturation in Arterial blood by Pulse oximetry 2022-05-22 19:00:00 98 /min [facility] Body weight 2022-05-22 15:52:[address] [facility] BMI 2022-05-22 15:52:00 39.93 kg/m2 Univ [facility] Body height 2022-05-22 15:49:00 188 cm [facility] Systolic blood pressure 2022-05-20 18:00:00 133 mm[Hg] [facility] Diastolic blood pressure 2022-05-20 18:00:00 81 mm[Hg] [facility] Heart rate 2022-05-20 18:00:00 92 /min [facility] Oxygen saturation in Arterial blood by Pulse oximetry 2022-05-20 18:00:00 97 /min [facility] Respiratory rate 2022-05-20 17:30:00 18 /min [facility] Body temperature 2022-05-20 17:00:00 36.22 Sara [facility] Body weight 2022-05-20 17:00:00 141.069 kg [facility] BMI 2022-05-20 17:00:00 39.93 kg/m2 [facility] Systolic blood pressure 2022-05-20 13:51:00 133 mm[Hg] [facility] Diastolic blood pressure 2022-05-20 13:51:00 102 mm[Hg] [facility] Heart rate 2022-05-20 13:49:00 105 /min [facility] Body height 2022-05-20 13:49:00 188 cm [facility] Body weight 2022-05-20 13:49:00 141.341 kg [facility] BMI 2022-05-20 13:49:00 40.01 kg/m2 [facility] Oxygen saturation in Arterial blood by Pulse oximetry 2022-05-20 13:49:00 97 /min [facility] Systolic blood pressure 2022-05-19 19:02:00 135 mm[Hg] [facility] Diastolic blood pressure 2022-05-19 19:02:00 95 mm[Hg] [facility] Heart rate 2022-05-19 19:02:00 94 /min [facility] Body temperature 2022-05-19 19:02:00 35.78 Sara [facility] Respiratory rate 2022-05-19 19:02:00 18 /min [facility] Body height 2022-05-19 19:02:00 188 cm [facility] Body weight 2022-05-19 19:02:00 143.291 kg [facility] BMI 2022-05-19 19:02:00 40.56 kg/m2 [facility] Oxygen saturation in Arterial blood by Pulse oximetry 2022-05-19 19:02:00 98 /min [facility] Systolic blood pressure 2022-05-15 16:25:00 132 mm[Hg] [facility] Diastolic blood pressure 2022-05-15 16:25:00 87 mm[Hg] [facility] Heart rate 2022-05-15 16:25:00 87 /min [facility] Body temperature 2022-05-15 16:25:00 36.39 Sara [facility] Respiratory rate 2022-05-15 16:25:00 20 /min [facility] Oxygen saturation in Arterial blood by Pulse oximetry 2022-05-15 16:25:00 97 /min [facility] Body height 2022-05-11 16:18:00 188 cm [facility] Body weight 2022-05-11 16:18:00 144.697 kg [facility] BMI 2022-05-11 16:18:00 40.96 kg/m2 [facility] Systolic blood pressure 2022-05-09 21:30:00 156 mm[Hg] [facility] Diastolic blood pressure 2022-05-09 21:30:00 106 mm[Hg] [facility] Heart rate 2022-05-09 21:30:00 92 /min [facility] Respiratory rate 2022-05-09 21:30:00 16 /min [facility] Oxygen saturation in Arterial blood by Pulse oximetry 2022-05-09 21:30:00 99 /min [facility] Body temperature 2022-05-09 19:08:00 37.22 Sara [facility] Body height 2022-05-09 19:08:[address] [facility] Body weight 2022-05-09 19:08:00 147.419 kg [facility] BMI 2022-05-09 19:08:00 41.73 kg/m2 Univ [facility] Systolic blood pressure 2022-05-09 18:25:00 181 mm[Hg] [facility] Diastolic blood pressure 2022-05-09 18:25:00 129 mm[Hg] [facility] Heart rate 2022-05-09 18:25:00 110 /min [facility] 2022-05-09 18:25:00 18 /min [facility] Body height 2022-05-09 18:25:00 188 cm [facility] 2022-05-09 18:25:00 147.374 kg [facility] BMI 2022-05-09 18:25:00 41.71 kg/m2 [facility] Oxygen saturation in Arterial blood by Pulse oximetry 2022-05-09 18:25:00 100 /min [facility] Systolic blood pressure 2022-05-06 12:38:00 122 mm[Hg] [facility] Diastolic blood pressure 2022-05-06 12:38:00 88 mm[Hg] [facility] Heart rate 2022-05-06 12:38:00 90 [facility] Body temperature 2022-05-06 12:38:00 35.89 Sara [facility] Respiratory rate 2022-05-06 12:38:00 16 /min [facility] Oxygen saturation in Arterial blood by Pulse oximetry 2022-05-06 12:38:00 96 /min [facility] Body weight 2022-05-06 07:48:[address] [facility] BMI 2022-05-06 07:48:00 41.18 kg/m2 Univ [facility] Body height 2022-05-06 01:06:00 188 cm [facility] Systolic blood pressure 2022-04-30 16:00:00 116 mm[Hg] [facility] Diastolic blood pressure 2022-04-30 16:00:00 81 mm[Hg] [facility] Heart rate 2022-04-30 16:00:00 84 /min [facility] Body temperature 2022-04-30 13:11:00 35.83 Saar [facility] Respiratory rate 2022-04-30 13:11:00 18 /min [facility] Oxygen saturation in Arterial blood by Pulse oximetry 2022-04-30 13:11:00 96 /min [facility] Body weight 2022-04-30 09:16:00 147.963 kg [facility] BMI 2022-04-30 09:16:00 41.88 kg/m2 [facility] Body height 2022-04-29 15:31:00 188 cm [facility] Systolic blood pressure 2022-04-28 18:30:00 153 mm[Hg] [facility] Diastolic blood pressure 2022-04-28 18:30:00 116 mm[Hg] [facility] Heart rate 2022-04-28 18:30:00 111 /min [facility] Respiratory rate 2022-04-28 18:30:00 18 /min [facility] Body height 2022-04-28 18:30:00 188 cm [facility] Body weight 2022-04-28 18:30:00 146.965 kg [facility] BMI 2022-04-28 18:30:00 41.60 kg/m2 [facility] Oxygen saturation in Arterial blood by Pulse oximetry 2022-04-28 18:30:00 96 /min [facility] Systolic blood pressure 2022-04-23 16:32:00 123 mm[Hg] [facility] Diastolic blood pressure 2022-04-23 16:32:00 88 mm[Hg] [facility] Heart rate 2022-04-23 16:32:00 85 /min [facility] Body temperature 2022-04-23 16:32:00 35.06 Sara [facility] Respiratory rate 2022-04-23 16:32:00 18 /min [facility] Oxygen saturation in Arterial blood by Pulse oximetry 2022-04-23 16:32:00 98 /min [facility] Body weight 2022-04-23 08:33:00 142.475 kg [facility] BMI 2022-04-23 08:33:00 40.33 kg/m2 [facility] Body height 2022-04-22 17:53:00 188 cm [facility] Systolic blood pressure 2022-04-17 12:19:00 111 mm[Hg] [facility] Diastolic blood pressure 2022-04-17 12:19:00 78 mm[Hg] [facility] Heart rate 2022-04-17 12:19:00 99 /min [facility] Body temperature 2022-04-17 12:19:00 36.94 Sara [facility] Respiratory rate 2022-04-17 12:19:00 18 /min [facility] Body height 2022-04-17 12:19:00 188 cm [facility] Body weight 2022-04-17 12:19:00 144.697 kg [facility] BMI 2022-04-17 12:19:00 40.96 kg/m2 [facility] Oxygen saturation in Arterial blood by Pulse oximetry 2022-04-17 12:19:00 99 /min [facility] Systolic blood pressure 2022-04-15 20:00:00 157 mm[Hg] [facility] Diastolic blood pressure 2022-04-15 20:00:00 89 mm[Hg] [facility] Heart rate 2022-04-15 20:00:00 102 [facility] Res[facility] 2022-04-15 20:00:00 19 /min [facility] Oxygen saturation in Arterial blood by Pulse oximetry 2022-04-15 20:00:00 99 /min [facility] Body temperature 2022-04-15 18:41:00 36.11 Sara [facility] Body height 2022-04-15 18:41:[address] [facility] Body weight 2022-04-15 18:41:[address] [facility] BMI 2022-04-15 18:41:00 41.09 kg/m2 [facility] Systolic blood pressure 2022-03-26 19:15:00 125 mm[Hg] [facility] Diastolic blood pressure 2022-03-26 19:15:00 89 mm[Hg] [facility] Heart rate 2022-03-26 19:15:00 99 /min [facility] Respiratory rate 2022-03-26 19:15:00 18 /min [facility] Body weight 2022-03-26 19:15:[address] [facility] BMI 2022-03-26 19:15:00 40.96 kg/m2 Univ [facility] Oxygen saturation in Arterial blood by Pulse oximetry 2022-03-26 19:15:00 97 /min [facility] Systolic blood pressure 2024-08-26 20:29:00 104 mm[Hg] [facility] Diastolic blood pressure 2024-08-26 20:29:00 74 mm[Hg] [facility] Heart rate 2024-08-26 20:29:00 81 /min [facility] Body temperature 2024-08-26 20:29:00 26.39 Sara [facility] Body weight 2024-08-26 20:29:[address] [facility] BMI 2024-08-26 20:29:00 36.34 kg/m2 Univ [facility] Oxygen saturation in Arterial blood by Pulse oximetry 2024-08-26 20:29:00 97 /min [facility] Respiratory rate 2024-08-19 21:00:00 14 /min [facility] Body height 2024-08-19 01:05:[address] [facility] Systolic blood pressure 2024-08-13 17:46:00 121 mm[Hg] [facility] Diastolic blood pressure 2024-08-13 17:46:00 86 mm[Hg] [facility] Heart rate 2024-08-13 17:46:00 72 /min [facility] Body temperature 2024-08-13 17:46:00 36.78 Sara [facility] Respiratory rate 2024-08-13 17:46:00 20 /min [facility] Oxygen saturation in Arterial blood by Pulse oximetry 2024-08-13 17:46:00 96 /min [facility] Body weight 2024-08-13 04:08:00 128.822 kg [facility] BMI 2024-08-13 04:08:00 36.46 kg/m2 [facility] Body height 2024-08-12 20:53:14 188 cm [facility] Procedures Procedure Date / Time Performed Performing Clinician Source URINALYSIS 2024-10-05 00:39:00 Singer [facility] TROPONIN I 2024-10-04 23:44:00 Singer [facility] COMP. METABOLIC PANEL (18298) 2024-10-04 23:44:00 Singer [facility] CBC WITH DIFF 2024-10-04 23:44:[address] Singer [facility] CT HEAD WO CONTRAST 2024-10-04 23:13:21 Singer [facility] COMPREHENSIVE METABOLIC PANEL 2024-10-03 03:06:00 Kevin Chi [facility] Epic MAGNESIUM LEVEL 2024-10-03 03:06:00 [facility] PHOSPHORUS LEVEL 2024-10-03 03:06:00 Chalino Costello [facility] Epic COMPLETE BLOOD COUNT W/DIFF AND PLATELET 2024-10-03 03:06:00 [facility] SCREEN URINE (10 DRUG) 2024-10-03 03:06:00 Chalino [facility] PT AND PTT 2024-10-03 03:06:00 Chal[facility] COMPLETE BLOOD COUNT 2024-10-03 03:06:00 Chal[facility] Epic AUTOMATED DIFFERENTIAL 2024-10-03 03:06:00 Chalino [facility] PT AND PTT 2024-10-02 17:03:00 [facility] 2024-10-02 09:20:00 Milan Valverde [facility] COMPREHENSIVE METABOLIC PANEL 2024-10-02 03:24:00 Pravin, [facility] LIPID PANEL W/CALCULATED LDL 2024-10-02 03:24:00 Pravin, [facility] HEMOGLOBIN A1C 2024-10-02 03:24:00 Pravin, [facility] MAGNESIUM LEVEL 2024-10-02 03:24:00 Pravin, [facility] PHOSPHORUS LEVEL 2024-10-02 03:24:00 Pravin, [facility] COMPLETE BLOOD COUNT W/DIFF AND PLATELET 2024-10-02 03:24:00 Pravin, [facility] PT AND PTT 2024-10-02 03:24:00 Pravin, [facility] COMPLETE BLOOD COUNT 2024-10-02 03:24:00 Pravin, [facility] AUTOMATED DIFFERENTIAL 2024-10-02 03:24:00 Pravin, [facility] RT eval and treat 2024-10-02 00:00:00 [facility] PT AND PTT 2024-10-01 20:26:00 Milan Valverde [facility] TRANSTHORACIC ECHO (TTE) COMPLETE W/ CONTRAST 2024-10-01 18:20:00 Rpavin, [facility] CARDIAC DEVICE CHECK - INPATIENT - ICD BIVENTRICULAR CHAMBER W/ PROG 2024-10-01 14:33:40 Pravin, [facility] PRO-BRAIN NATRIURETIC PEPTIDE (PRO-BNP) 2024-10-01 14:07:00 Pravin, [facility] THYROID PANEL 2024-10-01 14:07:00 Pravin, [facility] COMPREHENSIVE METABOLIC PANEL 2024-10-01 13:42:00 Pravin, [facility] LACTIC ACID LEVEL 2024-10-01 13:42:00 Pravin, [facility] MAGNESIUM LEVEL 2024-10-01 13:42:00 Pravin, [facility] PHOSPHORUS LEVEL 2024-10-01 13:42:00 Pravin, [facility] COMPLETE BLOOD COUNT W/DIFF AND PLATELET 2024-10-01 13:42:00 Pravin, [facility] TROPONIN I HIGH SENSITIVITY (SINGLE ORDER) 2024-10-01 13:42:00 Pravin, [facility] COMPLETE BLOOD COUNT 2024-10-01 13:42:00 Parvin, [facility] AUTOMATED DIFFERENTIAL 2024-10-01 13:42:00 Pravin, [facility] PT AND PTT 2024-10-01 13:41:00 Pravin, [facility] XR CHEST 2 VIEWS 2024-10-01 12:19:39 Shad Raymundo [facility] CORONAVIRUS (COVID-19) FLU RSV CONNER 2024-10-01 00:56:00 Meli [facility] AMMONIA LEVEL 2024-10-01 00:55:00 Meli [facility] TROPONIN I HIGH SENSITIVITY CARESET (1ST HR) 2024-10-01 00:55:00 [facility] IV contrast 2024-10-01 00:00:[address] [facility] [address] ANGIOGRAM CHEST - AORTA 2024-09-30 23:45:51 Jose Maahn [facility] CT BRAIN WO IV CONTRAST 2024-09-30 23:45:30 Jose Mahan [facility] XR CHEST 1 VIEW 2024-09-30 22:07:[facility] 2024-09-30 21:55:00 Jose Mahan [facility] HEPATIC FUNCTION PANEL 2024-09-30 21:55:00 Meli [facility] BLOOD GAS, VENOUS 2024-09-30 21:55:00 [facility] L[facility] 2024-09-30 21:55:00 Meli [facility] B-TYPE NATRIURETIC PEPTIDE 2024-09-30 21:55:00 [facility] PHOS[facility]US L[facility] 2024-09-30 21:55:00 Figueroa Garrison [facility] COMPLETE BLOOD COUNT W/DIFF AND PLATELET 2024-09-30 21:55:00 Goay, Jose Zapata [facility] PROTIME-INR 2024-09-30 21:55:00 Goay, Jose Zapata [facility] PTT 2024-09-30 21:55:00 [facility] HIGH SENSITIVITY CARESET 2024-09-30 21:55:00 Goay, Jose [facility] TROPONIN I HIGH SENSITIVITY CARESET (BASELINE) 2024-09-30 21:55:00 Goay, Jose [facility] LACTIC ACID WITH 2 HOUR REFLEX 2024-09-30 21:55:00 [facility]PLE[facility] 2024-09-30 21:55:00 Goay, Jose [facility] AUTOMATED DIFFERENTIAL 2024-09-30 21:55:00 Goay, Jose [facility] ECG 12-LEAD 2024-09-30 21:53:47 Goay, Jose [facility] TROPONIN I 2024-09-20 17:17:00 Isela [facility] MAGNESIUM 2024-09-20 10:35:00 Isela [facility] TROPONIN I 2024-09-20 10:35:00 Isela [facility] HEPATIC FUNCTION PANEL (96479) (ALB,T.PRO,BILI T,BU/BC,ALT,AST,ALK PHOS) 2024-09-20 10:35:00 Isela [facility] BASIC METABOLIC PANEL (NA, K, CL, CO2, GLUCOSE, BUN, CREATININE, CA) 2024-09-20 10:35:00 Isela [facility] N-TERMINAL PRO-BNP 2024-09-20 10:35:00 Isela [facility] TROPONIN I 2024-09-20 05:20:00 Isela [facility] TROPONIN I 2024-09-19 22:51:00 Isela [facility] XR CHEST 1 VW 2024-09-19 19:50:39 [facility]-19 18:51[facility]00 [facility]IMMUNOASSAY) - COMPREHENSIVE DRUG SCREEN W/O REFLEX 2024-09-19 18:51:00 [facility] FENTANYL (IMMUNOASSAY) 2024-09-19 18:51:00 [facility] MAGNES[facility]UM 2024-09-19 17:11:00 Lindsey Myers [facility] TROPONIN I 2024-09-19 17:11:00 Lindsey Myers [facility] COMP. METABOLIC PANEL ([id number]) 2024-09-19 17:11:00 Lindsey Myers [facility] CBC WITH DIFF 2024-09-19 17:11:00 Lindsey Myers [facility] INFLUENZA A/B RSV COVID NAAT 2024-09-19 17:11:00 Lindsey Myers [facility] N-TERMINAL PRO-BNP 2024-09-19 17:11:00 [facility] ROUTINE & RHYTHM STRIP 2024-09-19 16:42:39 Lindsey Myers [facility] TROPONIN I 2024-09-18 23:00:00 [facility] TROPONIN I 2024-09-18 20:43:00 [facility] BASIC METABOLIC PANEL (NA, K, CL, CO2, GLUCOSE, BUN, CREATININE, CA) 2024-09-18 20:43:00 [facility] CBC WITH DIFF 2024-09-18 20:43:00 [facility] POCT GLUCOSE (AUTOMATED) 2024-08-19 17:40:00 Autumn [facility] POCT GLUCOSE (AUTOMATED) 2024-08-19 17:40:00 Autumn [facility] TRANSTHORACIC ECHO (TTE) LIMITED W/ CONTRAST 2024-08-19 16:16:51 Yared Larios [facility] TROPONIN I 2024-08-19 09:46:00 Yared Larios [facility] LIPID PANEL ([id number])(TOTAL CHOLESTEROL, TRIGLYCERIDES, HDL) 2024-08-19 09:46:00 Yared Larios [facility] PROTHROMBIN TIME / INR 2024-08-19 09:46:00 Yared Larios [facility] ACTIVATED PARTIAL THRMPLAS MILKA 2024-08-19 09:46:00 Yared Larios [facility] N-TERMINAL PRO-BNP 2024-08-19 09:46:00 Yared Larios [facility] PROTHROMBIN TIME / INR 2024-08-19 09:46:00 Yared Larios [facility] ACTIVATED PARTIAL THRMPLAS MILKA 2024-08-19 09:46:00 Yared Larios [facility] TROPONIN I 2024-08-19 09:46:00 Yared Larios [facility] LIPID PANEL ([id number])(TOTAL CHOLESTEROL, TRIGLYCERIDES, HDL) 2024-08-19 09:46:00 Yared Larios [facility] C-REACTIVE PROTEIN 2024-08-19 09:46:00 Yared Larios [facility] N-TERMINAL PRO-BNP 2024-08-19 09:46:00 Yared Larios [facility] EKG-12 LEAD 2024-08-19 04:56:28 Martínez [facility] TROPONIN I 2024-08-19 01:45:00 Martínez [facility] BASIC METABOLIC PANEL (NA, K, CL, CO2, GLUCOSE, BUN, CREATININE, CA) 2024-08-19 01:45:00 Martínez [facility] CBC WITH DIFF 2024-08-19 01:45:00 Martínez [facility] N-TERMINAL PRO-BNP 2024-08-19 01:45:00 Martínez [facility] BASIC METABOLIC PANEL (NA, K, CL, CO2, GLUCOSE, BUN, CREATININE, CA) 2024-08-19 01:45:00 Martínez [facility] TROPONIN I 2024-08-19 01:45:00 Martínez [facility] N-TERMINAL PRO-BNP 2024-08-19 01:45:00 Martínez [facility] CBC WITH DIFF 2024-08-19 01:45:00 Martínez [facility] XR CHEST 1 VW 2024-08-19 01:30:00 Martínez [facility] XR CHEST 1 VW 2024-08-19 01:30:00 Martínez [facility] HB ECG ROUTINE & RHYTHM STRIP 2024-08-19 01:26:10 Martínez [facility] POCT GLUCOSE (AUTOMATED) 2024-08-15 17:45[facility]00 [facility]24-08-15 [facility]:45[facility] 2024-08-15 [facility]:45[facility] 2024-08-15 13:47[facility]00 [facility] (AUTOMATED) 2024-08-15 13:47:00 [facility] POCT GLUCOSE (AUTOMATED) 2024-08-15 13:47:[address] [facility] MAGNESIUM 2024-08-15 11:08:00 Christiano [facility] BASIC METABOLIC PANEL (NA, K, CL, CO2, GLUCOSE, BUN, CREATININE, CA) 2024-08-15 11:08:00 Christiano [facility] CBC WITH DIFF 2024-08-15 11:08:00 Christiano [facility] MAGNESIUM 2024-08-15 11:08:00 Christiano [facility] BASIC METABOLIC PANEL (NA, K, CL, CO2, GLUCOSE, BUN, CREATININE, CA) 2024-08-15 11:08:00 Christiano [facility] CBC WITH DIFF 2024-08-15 11:08:00 Christiano [facility] CBC WITH DIFF 2024-08-15 11:08:00 Christiano [facility] BASIC METABOLIC PANEL (NA, K, CL, CO2, GLUCOSE, BUN, CREATININE, CA) 2024-08-15 11:08:00 Christiano [facility] MAGNESIUM 2024-08-15 11:08:00 Christiano [facility] POCT GLUCOSE (AUTOMATED) 2024-08-15 02:31:[address] [facility] POCT GLUCOSE (AUTOMATED) 2024-08-15 02:31[facility]00 [facility] 2024-08-15 02:31:[address] [facility] POCT GLUCOSE (AUTOMATED) 2024-08-14 23:23:[address] [facility] POCT GLUCOSE (AUTOMATED) 2024-08-14 23:23:[address] [facility] POCT GLUCOSE (AUTOMATED) 2024-08-14 23:23:00 [facility] 2024-08-14 18:35:00 [facility] (AUTOMATED) 2024-08-14 18:35:[address] [facility] POCT GLUCOSE (AUTOMATED) 2024-08-14 18:35:[address] [facility] MAGNESIUM 2024-08-14 15:10:00 Christiano [facility] BASIC METABOLIC PANEL (NA, K, CL, CO2, GLUCOSE, BUN, CREATININE, CA) 2024-08-14 15:10:00 Christiano [facility] MAGNESIUM 2024-08-14 15:10:00 Christiano [facility] BASIC METABOLIC PANEL (NA, K, CL, CO2, GLUCOSE, BUN, CREATININE, CA) 2024-08-14 15:10:00 Christiano [facility] BASIC METABOLIC PANEL (NA, K, CL, CO2, GLUCOSE, BUN, CREATININE, CA) 2024-08-14 15:10:00 [facility] 2024-08-14 15:10:00 Christiano [facility] POCT GLUCOSE (AUTOMATED) 2024-08-14 14:45:[address] [facility] POCT GLUCOSE (AUTOMATED) 2024-08-14 14:45:00 [facility] 2024-08-14 14:45:00 [facility] ([facility]OMATED) 2024-08-14 03:14:00 [facility] ([facility]OMATED) 2024-08-14 03:14:00 [facility] (AUTOMATED) 2024-08-14 03:14:00 [facility] ([facility]OMATED) 2024-08-13 19:09:00 [facility] ([facility]OMATED) 2024-08-13 19:09:00 [facility] (AUTOMATED) 2024-08-13 19:09:00 [facility] HB ECG ROUTINE & RHYTHM STRIP 2024-08-13 18:11:45 Christiano [facility] POCT GLUCOSE (AUTOMATED) 2024-08-13 14:45:00 [facility] (AUTOMATED) 2024-08-13 14:45:00 [facility] (AUTOMATED) 2024-08-13 14:45:00 [facility]ED[facility] LOG 2024-08-13 02:44:05 Martina Walls [facility] CATH PROCEDURE LOG 2024-08-13 02:44:05 Martina Walls [facility] CATH PROCEDURE LOG 2024-08-13 02:44:05 Martina Walls [facility] ELECTROPHYSIOLOGY PROCEDURE 2024-08-13 02:26:[facility] 2024-08-13 02:26:34 Vlad [facility] ELECTROPHYSIOLOGY PROCEDURE 2024-08-13 02:26:34 Vlad [facility] INTUBATION 2024-08-13 01:37:00 Cande Marley [facility] TRANSESOPHAGEAL ECHO (JOSE) COMPLETE W/ DOPPLER AND COLOR 2024-08-12 21:20:57 Martina Walls [facility] TRANSESOPHAGEAL ECHO (JOSE) COMPLETE W/ DOPPLER AND COLOR 2024-08-12 21:20:57 Martina Walls [facility] TRANSESOPHAGEAL ECHO (JOSE) COMPLETE W/ DOPPLER AND COLOR 2024-08-12 21:20:57 Martina Walls [facility] ARTERIAL LINE 2024-08-12 13:30:00 Cande Marley [facility] CBC WITH DIFF 2024-08-12 08:25:00 Luisa [facility] MAGNESIUM 2024-08-12 08:25:00 [facility]OLIC PANEL (NA, K, CL, CO2, GLUCOSE, BUN, CREATININE, CA) 2024-08-12 08:25:00 [facility], URINE RANDOM 2024-08-12 08:25:00 Jose Pan [facility] CREATININE, URINE RANDOM 2024-08-12 08:25:00 Jose Pan [facility] ACTIVATED PARTIAL THRMPLAS MILKA 2024-08-12 08:25:00 Criss Leyva [facility] MAGNESIUM 2024-08-12 08:25:00 [facility] BASIC METABOLIC PANEL (NA, K, CL, CO2, GLUCOSE, BUN, CREATININE, CA) 2024-08-12 08:25:00 Luisa [facility] CBC WITH DIFF 2024-08-12 08:25:00 [facility] ACTIVATED PARTIAL THRMPLAS MILKA 2024-08-12 08:25:00 Criss Leyva [facility] CREATININE, URINE RANDOM 2024-08-12 08:25:00 Jose Pan [facility] UREA NITROGEN, URINE RANDOM 2024-08-12 08:25:00 Jose Pan [facility] MAGNESIUM 2024-08-12 08:25:00 Luisa [facility] BASIC METABOLIC PANEL (NA, K, CL, CO2, GLUCOSE, BUN, CREATININE, CA) 2024-08-12 08:25:00 Luisa [facility] CBC WITH DIFF 2024-08-12 08:25:00 Luisa [facility] ACTIVATED PARTIAL THRMPLAS MILKA 2024-08-12 08:25:00 Autumn [facility] CREATININE, URINE RANDOM 2024-08-12 08:25:00 Jose Pan [facility] UREA NITROGEN, URINE RANDOM 2024-08-12 08:25:00 Jose Pan [facility] HB ECG ROUTINE & RHYTHM STRIP 2024-08-11 22:15:17 Luisa [facility] HB ECG ROUTINE & RHYTHM STRIP 2024-08-11 22:15:17 Luisa [facility] HB ECG ROUTINE & RHYTHM STRIP 2024-08-11 22:15:17 Luisa [facility] TRANSTHORACIC ECHO (TTE) LIMITED W/ CONTRAST 2024-08-11 22:09:23 Niurka [facility] TRANSTHORACIC ECHO (TTE) LIMITED W/ CONTRAST 2024-08-11 22:09:23 Niurka [facility] TRANSTHORACIC ECHO (TTE) LIMITED W/ CONTRAST 2024-08-11 22:09:23 Maria E Bah [facility] ACTIVATED PARTIAL THRMPLAS MILKA 2024-08-11 19:34:00 Autumn [facility] ACTIVATED PARTIAL THRMPLAS MILKA 2024-08-11 19:34:00 Autumn [facility] ACTIVATED PARTIAL THRMPLAS MILKA 2024-08-11 19:34:00 Autunm [facility] LACTIC ACID WHOLE BLOOD 2024-08-11 12:38:00 Jose Pan [facility] LACTIC ACID WHOLE BLOOD 2024-08-11 12:38:00 Jose Pan [facility] LACTIC ACID WHOLE BLOOD 2024-08-11 12:38:00 Jose Pan [facility] CBC WITHOUT DIFF 2024-08-11 10:40:00 Isela [facility] BASIC METABOLIC PANEL (NA, K, CL, CO2, GLUCOSE, BUN, CREATININE, CA) 2024-08-11 10:40:00 Isela [facility] N-TERMINAL PRO-BNP 2024-08-11 10:40:00 Isela [facility] ACTIVATED PARTIAL THRMPLAS MILKA 2024-08-11 10:40:00 Criss Leyva [facility] MAGNESIUM 2024-08-11 10:40:00 Luisa [facility] URIC ACID 2024-08-11 10:40:00 Luisa [facility] URIC ACID 2024-08-11 10:40:00 Luisa [facility] MAGNESIUM 2024-08-11 10:40:00 Luisa [facility] BASIC METABOLIC PANEL (NA, K, CL, CO2, GLUCOSE, BUN, CREATININE, CA) 2024-08-11 10:40:00 Isela [facility] CBC WITHOUT DIFF 2024-08-11 10:40:00 Isela [facility] ACTIVATED PARTIAL THRMPLAS MILKA 2024-08-11 10:40:00 Criss Leyva [facility] N-TERMINAL PRO-BNP 2024-08-11 10:40:00 Isela [facility] URIC ACID 2024-08-11 10:40:00 Luisa [facility] MAGNESIUM 2024-08-11 10:40:00 [facility]IC METABOLIC PANEL (NA, K, CL, CO2, GLUCOSE, BUN, CREATININE, CA) 2024-08-11 10:40:00 Isela [facility] CBC WITHOUT DIFF 2024-08-11 10:40:00 Isela [facility] ACTIVATED PARTIAL THRMPLAS MILKA 2024-08-11 10:40:00 Autumn [facility] N-TERMINAL PRO-BNP 2024-08-11 10:40:00 Isela [facility] HB ECG ROUTINE & RHYTHM STRIP 2024-08-11 04:19:08 Maxim [facility] HB ECG ROUTINE & RHYTHM STRIP 2024-08-11 04:19:08 Maxim [facility] HB ECG ROUTINE & RHYTHM STRIP 2024-08-11 04:19:08 Maxim [facility] LACTIC ACID WHOLE BLOOD 2024-08-11 03:46:00 Maxim [facility] LACTIC ACID WHOLE BLOOD 2024-08-11 03:46:00 Maxim [facility] LACTIC ACID WHOLE BLOOD 2024-08-11 03:46:00 Maxim [facility] MRSA / MSSA SCREEN BY PCRSKY 2024-08-11 03:45:00 Maxim [facility] TROPONIN I 2024-08-11 03:45:00 Jose Pan [facility] IRON PANEL 2024-08-11 03:45:00 Maxim [facility] FERRITIN SERUM 2024-08-11 03:45:00 Maxim [facility] ACTIVATED PARTIAL THRMPLAS MILKA 2024-08-11 03:45:00 Autumn [facility] FERRITIN SERUM 2024-08-11 03:45:00 Maxim [facility] TROPONIN I 2024-08-11 03:45:00 Maxim [facility] IRON PANEL 2024-08-11 03:45:00 Maxim [facility] ACTIVATED PARTIAL THRMPLAS MILKA 2024-08-11 03:45:00 Autumn [facility] MRSA / MSSA SCREEN BY PCR, SKY 2024-08-11 03:45:00 Maxim [facility] FERRITIN SERUM 2024-08-11 03:45:00 Jose Pan [facility] TROPONIN I 2024-08-11 03:45:00 Jose Pan [facility] IRON PANEL 2024-08-11 03:45:00 Jose Pan [facility] ACTIVATED PARTIAL THRMPLAS MILKA 2024-08-11 03:45:00 Autumn [facility] MRSA / MSSA SCREEN BY PCR, NARTAWANDA 2024-08-11 03:45:00 Jose Pan [facility] ACTIVATED PARTIAL THRMPLAS MILKA 2024-08-10 19:59:00 Autumn [facility] ACTIVATED PARTIAL THRMPLAS MILKA 2024-08-10 19:59:00 Autumn [facility] ACTIVATED PARTIAL THRMPLAS MILKA 2024-08-10 19:59:00 Autumn [facility] CBC WITH DIFF 2024-08-10 10:24:00 Santana [facility] BASIC METABOLIC PANEL (NA, K, CL, CO2, GLUCOSE, BUN, CREATININE, CA) 2024-08-10 10:24:00 Santana [facility] THYROID STIMULATING HORMONE 2024-08-10 10:24:00 Santana [facility] N-TERMINAL PRO-BNP 2024-08-10 10:24:00 Santana [facility] THYROID STIMULATING HORMONE 2024-08-10 10:24:00 Santana [facility] BASIC METABOLIC PANEL (NA, K, CL, CO2, GLUCOSE, BUN, CREATININE, CA) 2024-08-10 10:24:00 Santana [facility] CBC WITH DIFF 2024-08-10 10:24:00 Santana [facility] N-TERMINAL PRO-BNP 2024-08-10 10:24:00 Santana [facility] THYROID STIMULATING HORMONE 2024-08-10 10:24:00 Edfabian [facility] BASIC METABOLIC PANEL (NA, K, CL, CO2, GLUCOSE, BUN, CREATININE, CA) 2024-08-10 10:24:00 Santana [facility] CBC WITH DIFF 2024-08-10 10:24:00 Santana [facility] N-TERMINAL PRO-BNP 2024-08-10 10:24:00 Santana [facility] ACTIVATED PARTIAL THRMPLAS MILKA 2024-08-10 08:09:00 Autumn [facility] ACTIVATED PARTIAL THRMPLAS MILKA 2024-08-10 08:09:00 Autumn [facility] ACTIVATED PARTIAL THRMPLAS MILKA 2024-08-10 08:09:00 Autumn [facility] INFLUENZA A/B RSV COVID NAAT 2024-08-10 04:54:00 Edionbrant [facility] LAB ONLY COVID INTERPRETATION 2024-08-10 04:54:00 Santana [facility] INFLUENZA A/B RSV COVID NAAT 2024-08-10 04:54:00 Edionbrant [facility] LAB ONLY COVID INTERPRETATION 2024-08-10 04:54:00 Edionbrant [facility] INFLUENZA A/B RSV COVID NAAT 2024-08-10 04:54:00 Edfabian [facility] LAB ONLY COVID INTERPRETATION 2024-08-10 04:54:00 Santana [facility] MRSA / MSSA SCREEN BY PCR, NARES 2024-08-10 00:16:00 Autumn [facility] PROTHROMBIN TIME / INR 2024-08-10 00:16:00 Autumn [facility] PROTHROMBIN TIME / INR 2024-08-10 00:16:00 Autumn [facility] MRSA / MSSA SCREEN BY PCR, NARES 2024-08-10 00:16:00 Autumn [facility] PROTHROMBIN TIME / INR 2024-08-10 00:16:00 Autumn [facility] MRSA / MSSA SCREEN BY PCR, NARES 2024-08-10 00:16:00 Autumn [facility] CBC WITH DIFF 2024-08-09 18:35:00 Michelle Miranda [facility] COMP. METABOLIC PANEL ([id number]) 2024-08-09 18:35:00 Ruben [facility] TROPONIN I 2024-08-09 18:35:00 [facility] 2024-08-09 18:35:00 [facility]UM 2024-08-09 18:35:00 [facility] 2024-08-09 18:35:00 [facility] TROPONIN I 2024-08-09 18:35:00 Ruben [facility] COMP. METABOLIC PANEL ([id number]) 2024-08-09 18:35:00 [facility] CBC WITH DIFF 2024-08-09 18:35:00 [facility] N-[facility]MINAL PRO-BNP 2024-08-09 18:35:00 Ruben [facility] MAGNESIUM 2024-08-09 18:35:00 Ruben [facility] TROPONIN I 2024-08-09 18:35:00 [facility] COMP. METABOLIC PANEL ([id number]) 2024-08-09 18:35:00 [facility] CBC WITH DIFF 2024-08-09 18:35:00 Ruben [facility] N-TERMINAL PRO-BNP 2024-08-09 18:35:00 Ruben [facility] XR CHEST 1 VW 2024-08-09 18:25:00 [facility] CHEST 1 VW 2024-08-09 18:25:00 [facility] XR CHEST 1 VW 2024-08-09 18:25:00 Ruben [facility] HB ECG ROUTINE & RHYTHM STRIP 2024-08-09 17:46:31 Ruben [facility] HB ECG ROUTINE & RHYTHM STRIP 2024-08-09 17:46:31 Ruben [facility] HB ECG ROUTINE & RHYTHM STRIP 2024-08-09 17:46:31 [facility] 2024-08-09 17:27:00 [facility] 2024-08-09 17:27:00 Michelle Miranda [facility] CRITICAL CARE 2024-08-09 17:27:00 Michelle Miranda [facility] POCT GLUCOSE (AUTOMATED) 2024-08-01 22:11:00 Tio Perez [facility] POCT GLUCOSE (AUTOMATED) 2024-08-01 22:11[facility]00 [facility]) 2024-08-01 18:44:00 Ana [facility] POCT GLUCOSE (AUTOMATED) 2024-08-01 18:44:00 Ana [facility] POCT GLUCOSE (AUTOMATED) 2024-08-01 14:57:00 Ana [facility] POCT GLUCOSE (AUTOMATED) 2024-08-01 14:57:00 Ana sheron [facility] MAGNESIUM 2024-08-01 11:00:00 Gian Maddox [facility] TROPONIN I 2024-08-01 11:00:00 Gian Maddox [facility] BASIC METABOLIC PANEL (NA, K, CL, CO2, GLUCOSE, BUN, CREATININE, CA) 2024-08-01 11:00:00 Gian Maddox [facility] CBC WITH DIFF 2024-08-01 11:00:00 Gian Maddox [facility] CBC WITH DIFF 2024-08-01 11:00:00 Gian Maddox [facility] BASIC METABOLIC PANEL (NA, K, CL, CO2, GLUCOSE, BUN, CREATININE, CA) 2024-08-01 11:00:00 Gian Maddox [facility] MAGNESIUM 2024-08-01 11:00:00 Gian Maddox [facility] TROPONIN I 2024-08-01 11:00:00 Gian Maddox [facility] TROPONIN I 2024-08-01 06:34:00 Gian Maddox [facility] TROPONIN I 2024-08-01 06:34:00 Gian Maddox [facility] POCT GLUCOSE (AUTOMATED) 2024-08-01 02:16:00 Tio Perez [facility] POCT GLUCOSE (AUTOMATED) 2024-08-01 02:16:00 Tio Perez [facility] MAGNESIUM 2024-08-01 00:41:00 TanGian [facility] TROPONIN I 2024-08-01 00:41:00 TanGian [facility] COMP. METABOLIC PANEL ([id number]) 2024-08-01 00:41:00 TanGian [facility] CBC WITH DIFF 2024-08-01 00:41:00 TanGian [facility] PROTHROMBIN TIME / INR 2024-08-01 00:41:00 TanGian [facility] ACTIVATED PARTIAL THRMPLAS MILKA 2024-08-01 00:41:00 TanGian [facility] N-TERMINAL PRO-BNP 2024-08-01 00:41:00 TanGian [facility] CBC WITH DIFF 2024-08-01 00:41:00 TanGian [facility] COMP. METABOLIC PANEL ([id number]) 2024-08-01 00:41:00 TanGian [facility] MAGNESIUM 2024-08-01 00:41:00 TanGian [facility] TROPONIN I 2024-08-01 00:41:00 TanGian [facility] N-TERMINAL PRO-BNP 2024-08-01 00:41:00 TanGian [facility] PROTHROMBIN TIME / INR 2024-08-01 00:41:00 TanGian [facility] ACTIVATED PARTIAL THRMPLAS MILKA 2024-08-01 00:41:00 TanGian [facility] BASIC METABOLIC PANEL (NA, K, CL, CO2, GLUCOSE, BUN, CREATININE, CA) 2024-07-21 19:54:00 Christiano [facility] BASIC METABOLIC PANEL (NA, K, CL, CO2, GLUCOSE, BUN, CREATININE, CA) 2024-07-21 19:54:00 Harjinder Alvaradouniversity of [facility]ouri health carewandy [facility] BASIC METABOLIC PANEL (NA, K, CL, CO2, GLUCOSE, BUN, CREATININE, CA) 2024-07-21 19:54:00 AlvaradoLillian [facility] POCT GLUCOSE (AUTOMATED) 2024-07-21 17:07:00 Jacky Sofiadaniel Farmer [facility] POCT GLUCOSE (AUTOMATED) 2024-07-21 17:07:00 Gino Rico [facility] POCT GLUCOSE (AUTOMATED) 2024-07-21 17:07:00 Gino Rico [facility] POCT GLUCOSE (AUTOMATED) 2024-07-21 15:11:00 Gino Rico [facility] POCT GLUCOSE (AUTOMATED) 2024-07-21 15:11:00 Gino Rico [facility] POCT GLUCOSE (AUTOMATED) 2024-07-21 15:11:00 Gino Rico [facility] HB ECG ROUTINE & RHYTHM STRIP 2024-07-21 13:59:58 Rebecca Richmond [facility] HB ECG ROUTINE & RHYTHM STRIP 2024-07-21 13:59:58 Rebecca Richmond [facility] HB ECG ROUTINE & RHYTHM STRIP 2024-07-21 13:59:58 Rebecca Richmond [facility] MAGNESIUM 2024-07-21 09:22:00 Joseline Dela Cruz [facility] BASIC METABOLIC PANEL (NA, K, CL, CO2, GLUCOSE, BUN, CREATININE, CA) 2024-07-21 09:22:00 Joseline Dela Cruz [facility] CBC WITHOUT DIFF 2024-07-21 09:22:00 Joseline Dela Cruz [facility] PROTHROMBIN TIME / INR 2024-07-21 09:22:00 Tiffanie Ramirze [facility] MAGNESIUM 2024-07-21 09:22:00 Joseline Dela Cruz [facility] BASIC METABOLIC PANEL (NA, K, CL, CO2, GLUCOSE, BUN, CREATININE, CA) 2024-07-21 09:22:00 Joseline Dela Cruz [facility] CBC WITHOUT DIFF 2024-07-21 09:22:00 Joseline Dela Cruz [facility] PROTHROMBIN TIME / INR 2024-07-21 09:22:00 Tiffanie Ramirez [facility] PROTHROMBIN TIME / INR 2024-07-21 09:22:00 Tiffanie Ramirez [facility] BASIC METABOLIC PANEL (NA, K, CL, CO2, GLUCOSE, BUN, CREATININE, CA) 2024-07-21 09:22:00 Joseline Dela Cruz [facility] MAGNESIUM 2024-07-21 09:22:00 [facility] CBC WITHOUT DIFF 2024-07-21 09:22:00 Joseline Dela Cruz [facility] POCT GLUCOSE (AUTOMATED) 2024-07-21 02:51:00 Gino Rico [facility] POCT GLUCOSE (AUTOMATED) 2024-07-21 02:51:00 Gino Rico [facility] POCT GLUCOSE (AUTOMATED) 2024-07-21 02:51:00 Gino Rico [facility] POCT GLUCOSE (AUTOMATED) 2024-07-20 22:28:00 Gino Rico [facility] POCT GLUCOSE (AUTOMATED) 2024-07-20 22:28:00 Gino Rico [facility] POCT GLUCOSE (AUTOMATED) 2024-07-20 22:28:00 Gino Rico [facility] POCT GLUCOSE (AUTOMATED) 2024-07-20 17:19:00 Gino Rico [facility] POCT GLUCOSE (AUTOMATED) 2024-07-20 17:19:00 Gino Rico [facility] POCT GLUCOSE (AUTOMATED) 2024-07-20 17:19:00 Gino Rico [facility] POCT GLUCOSE (AUTOMATED) 2024-07-20 15:23:00 Gino Rico [facility] POCT GLUCOSE (AUTOMATED) 2024-07-20 15:23:00 Gino Rico [facility] POCT GLUCOSE (AUTOMATED) 2024-07-20 15:23:00 Gino Rico [facility] HB ECG ROUTINE & RHYTHM STRIP 2024-07-20 15:03:28 [facility] & RHYTHM STRIP 2024-07-20 15:03:28 Arya Mejía [facility] HB ECG ROUTINE & RHYTHM STRIP 2024-07-20 15:03:28 Arya Mejía [facility] LACTIC ACID WHOLE BLOOD 2024-07-20 14:21:00 Jose De Jesus [facility] LACTIC ACID WHOLE BLOOD 2024-07-20 14:21:00 Jose De Jesus [facility] LACTIC ACID WHOLE BLOOD 2024-07-20 14:21:00 Jos eDe Jesus [facility] MAGNESIUM 2024-07-20 11:11:00 Jose De Jesus [facility] BASIC METABOLIC PANEL (NA, K, CL, CO2, GLUCOSE, BUN, CREATININE, CA) 2024-07-20 11:11:00 Jose De Jesus [facility] CBC WITHOUT DIFF 2024-07-20 11:11:00 Jose De Jesus [facility] PROTHROMBIN TIME / INR 2024-07-20 11:11:00 Tiffanie Ramirez [facility] ACTIVATED PARTIAL THRMPLAS MILKA 2024-07-20 11:11:00 Tiffanie Ramirez [facility] N-TERMINAL PRO-BNP 2024-07-20 11:11:00 Lillian Alvarado [facility] MAGNESIUM 2024-07-20 11:11:00 Jose De Jesus [facility] BASIC METABOLIC PANEL (NA, K, CL, CO2, GLUCOSE, BUN, CREATININE, CA) 2024-07-20 11:11:00 Jose De Jesus [facility] CBC WITHOUT DIFF 2024-07-20 11:11:00 Jose De Jesus [facility] PROTHROMBIN TIME / INR 2024-07-20 11:11:00 Tiffanie Ramirez [facility] ACTIVATED PARTIAL THRMPLAS MILKA 2024-07-20 11:11:00 Tiffanie Ramirez [facility] N-TERMINAL PRO-BNP 2024-07-20 11:11:00 [facility]oria [facility] BASIC METABOLIC PANEL (NA, K, CL, CO2, GLUCOSE, BUN, CREATININE, CA) 2024-07-20 11:11:00 Joseline Dela Cruz [facility] MAGNESIUM 2024-07-20 11:11:00 Jose De Jesus [facility] CBC WITHOUT DIFF 2024-07-20 11:11:00 Jose De Jesus [facility] PROTHROMBIN TIME / INR 2024-07-20 11:11:00 Tiffanie Ramirez [facility] ACTIVATED PARTIAL THRMPLAS MILKA 2024-07-20 11:11:00 Tiffanie Ramirez [facility] N-TERMINAL PRO-BNP 2024-07-20 11:11:00 Gregoria [facility] PROTHROMBIN TIME / INR 2024-07-20 05:21:00 Tiffanie Ramirez [facility] ACTIVATED PARTIAL THRMPLAS MILKA 2024-07-20 05:21:00 Tiffanie Ramirez [facility] PROTHROMBIN TIME / INR 2024-07-20 05:21:00 Tiffanie Ramirez [facility] ACTIVATED PARTIAL THRMPLAS MILKA 2024-07-20 05:21:00 Tiffanie Ramirez [facility] PROTHROMBIN TIME / INR 2024-07-20 05:21:00 Tiffanie Ramirez [facility] ACTIVATED PARTIAL THRMPLAS MILKA 2024-07-20 05:21:00 Tiffanie Ramirez [facility] POCT GLUCOSE (AUTOMATED) 2024-07-20 04:27:00 Gino Rico [facility] POCT GLUCOSE (AUTOMATED) 2024-07-20 04:27:00 Gino Rico [facility] POCT GLUCOSE (AUTOMATED) 2024-07-20 04:27:00 Gino Rico [facility] CATH PROCEDURE LOG 2024-07-20 00:06:51 VanessaGino briggs [facility] CATH PROCEDURE LOG 2024-07-20 00:06:51 Vanessachester Gino Darian [facility] CATH PROCEDURE LOG 2024-07-20 00:06:51 Vanessachester Gino Darian [facility] CARDIAC CATHETERIZATION 2024-07-19 23:45:17 Jacky Gino Darian [facility] CARDIAC CATHETERIZATION 2024-07-19 23:45:17 Jacky Gino Darian [facility] CARDIAC CATHETERIZATION 2024-07-19 23:45:17 Jacky Gino Darian [facility] POTASSIUM SERUM 2024-07-19 20:43:00 Jose De Jesus [facility] POTASSIUM SERUM 2024-07-19 20:43:00 Jose De Jesus [facility] POTASSIUM SERUM 2024-07-19 20:43:00 Joseline DelaC ruz [facility] HB ECG ROUTINE & RHYTHM STRIP 2024-07-19 18:19:17 Jose De Jesus [facility] HB ECG ROUTINE & RHYTHM STRIP 2024-07-19 18:19:17 Jose De Jesus [facility] HB ECG ROUTINE & RHYTHM STRIP 2024-07-19 18:19:17 Jose De Jesus [facility] POCT GLUCOSE (AUTOMATED) 2024-07-19 18:06:00 Gino Rico [facility] POCT GLUCOSE (AUTOMATED) 2024-07-19 18:06:00 Gino Rico [facility] POCT GLUCOSE (AUTOMATED) 2024-07-19 18:06:00 Gino Rico [facility] POCT GLUCOSE (AUTOMATED) 2024-07-19 18:06:00 Gino Rico [facility] BASIC METABOLIC PANEL (NA, K, CL, CO2, GLUCOSE, BUN, CREATININE, CA) 2024-07-19 17:01:00 Néstor Lux [facility] BASIC METABOLIC PANEL (NA, K, CL, CO2, GLUCOSE, BUN, CREATININE, CA) 2024-07-19 17:01:00 Néstor Lux [facility] BASIC METABOLIC PANEL (NA, K, CL, CO2, GLUCOSE, BUN, CREATININE, CA) 2024-07-19 17:01:00 Néstor Lux [facility] BASIC METABOLIC PANEL (NA, K, CL, CO2, GLUCOSE, BUN, CREATININE, CA) 2024-07-19 17:01:00 Néstor Lux [facility] HB ECG ROUTINE & RHYTHM STRIP 2024-07-19 14:20:45 Rebecca Richmond [facility] HB ECG ROUTINE & RHYTHM STRIP 2024-07-19 14:20:45 Rebecca Richmond [facility] HB ECG ROUTINE & RHYTHM STRIP 2024-07-19 14:20:45 Rebecca Richmond [facility] POCT GLUCOSE (AUTOMATED) 2024-07-19 14:20:00 Gino Rico [facility] POCT GLUCOSE (AUTOMATED) 2024-07-19 14:20:00 Gino Rico [facility] POCT GLUCOSE (AUTOMATED) 2024-07-19 14:20:00 Gino Rico [facility] POCT GLUCOSE (AUTOMATED) 2024-07-19 14:20:00 Gino Rico [facility] MAGNESIUM 2024-07-19 11:08:00 [facility] (NA, K, CL, CO2, GLUCOSE, BUN, CREATININE, CA) 2024-07-19 11:08:00 Nydia Dela Cruzhaley [facility] CBC WITHOUT DIFF 2024-07-19 11:08:00 [facility] 2024-07-19 11:08:00 Joseline Dela Cruz [facility] BASIC METABOLIC PANEL (NA, K, CL, CO2, GLUCOSE, BUN, CREATININE, CA) 2024-07-19 11:08:00 Jose De Jesus [facility] CBC WITHOUT DIFF 2024-07-19 11:08:00 Joseline Dela Cruz [facility] MAGNESIUM 2024-07-19 11:08:00 [facility]OL[facility] PAN[facility] (NA, K, CL, CO2, GLUCOSE, BUN, CREATININE, CA) 2024-07-19 11:08:00 [facility] DIFF 2024-07-19 11:08:00 Jose De Jesus [facility] BASIC METABOLIC PANEL (NA, K, CL, CO2, GLUCOSE, BUN, CREATININE, CA) 2024-07-19 11:08:00 Jose De Jesus [facility] MAGNESIUM 2024-07-19 11:08:00 Jose De Jesus [facility] CBC WITHOUT DIFF 2024-07-19 11:08:00 Jose De Jesus [facility] CATH PROCEDURE LOG 2024-07-19 01:07:24 Doctor Unassigned, [place] [facility] CATH PROCEDURE LOG 2024-07-19 01:07:24 Doctor Unassigned, [place] [facility] CATH PROCEDURE LOG 2024-07-19 01:07:24 Doctor Unassigned, [place] [facility] CATH PROCEDURE LOG 2024-07-19 01:07:24 Doctor Unassigned, [place] [facility] ELECTROPHYSIOLOGY PROCEDURE 2024-07-19 00:49:54 Martina Walls [facility] ELECTROPHYSIOLOGY PROCEDURE 2024-07-19 00:49:54 Martina Walls [facility] ELECTROPHYSIOLOGY PROCEDURE 2024-07-19 00:49:54 Martina Walls [facility] ELECTROPHYSIOLOGY PROCEDURE 2024-07-19 00:49:54 Martina Walls [facility] POCT GLUCOSE (AUTOMATED) 2024-07-18 18:34:00 Gino Rico [facility] POCT GLUCOSE (AUTOMATED) 2024-07-18 18:34:00 Gino Rico [facility] POCT GLUCOSE (AUTOMATED) 2024-07-18 18:34:00 Gino Rico [facility] POCT GLUCOSE (AUTOMATED) 2024-07-18 18:34:00 Gino Rico [facility] NM LUNG VENTILATION AND PERFUSION 2024-07-18 18:18:[address] [facility] NM LUNG VENTILATION AND PERFUSION 2024-07-18 18:18:23 Omi [facility] LUNG VENTILATION AND PERFUSION 2024-07-18 18:18:[address] [facility] NM LUNG VENTILATION AND PERFUSION 2024-07-18 18:18:[address] [facility] HB ECG ROUTINE & RHYTHM STRIP 2024-07-18 13:51:10 Rebecca Richmond [facility] HB ECG ROUTINE & RHYTHM STRIP 2024-07-18 13:51:10 Rebecca Richmond [facility] HB ECG ROUTINE & RHYTHM STRIP 2024-07-18 13:51:10 Rebecca Richmond [facility] HB ECG ROUTINE & RHYTHM STRIP 2024-07-18 13:51:10 Rebecca Richmond [facility] MAGNESIUM 2024-07-18 09:11:00 Pedro Luis [facility] BASIC METABOLIC PANEL (NA, K, CL, CO2, GLUCOSE, BUN, CREATININE, CA) 2024-07-18 09:11:00 Pedro Luis [facility] CBC WITH DIFF 2024-07-18 09:11:00 Pedro Luis [facility] ACTIVATED PARTIAL THRMPLAS MILKA 2024-07-18 09:11:00 Rebecca Richmond [facility] MAGNESIUM 2024-07-18 09:11:00 Pedro Luis [facility] BASIC METABOLIC PANEL (NA, K, CL, CO2, GLUCOSE, BUN, CREATININE, CA) 2024-07-18 09:11:00 Pedro Luis [facility] CBC WITH DIFF 2024-07-18 09:11:00 Pedro Luis [facility] ACTIVATED PARTIAL THRMPLAS MILKA 2024-07-18 09:11:00 Rebecca Richmond [facility] MAGNESIUM 2024-07-18 09:11:00 Niflaquito [facility] BASIC METABOLIC PANEL (NA, K, CL, CO2, GLUCOSE, BUN, CREATININE, CA) 2024-07-18 09:11:00 Vernon Cloud [facility] CBC WITH DIFF 2024-07-18 09:11:00 Pedro Luis [facility] ACTIVATED PARTIAL THRMPLAS MILKA 2024-07-18 09:11:00 Rebecca Richmond [facility] CBC WITH DIFF 2024-07-18 09:11:00 Vernon Cloud [facility] MAGNESIUM 2024-07-18 09:11:00 Pedro Luis [facility] BASIC METABOLIC PANEL (NA, K, CL, CO2, GLUCOSE, BUN, CREATININE, CA) 2024-07-18 09:11:00 Pedro Luis [facility] ACTIVATED PARTIAL THRMPLAS MILKA 2024-07-18 09:11:00 Rebecca Richmond [facility] POCT GLUCOSE (AUTOMATED) 2024-07-18 03:04:00 Gino Rico [facility] POCT GLUCOSE (AUTOMATED) 2024-07-18 03:04:00 Gino Rico [facility] POCT GLUCOSE (AUTOMATED) 2024-07-18 03:04:00 Gino Rico [facility] POCT GLUCOSE (AUTOMATED) 2024-07-18 03:04:00 Gino Rico [facility] POCT GLUCOSE (AUTOMATED) 2024-07-17 22:08:00 Gino Rico [facility] POCT GLUCOSE (AUTOMATED) 2024-07-17 22:08:00 Gino Rico [facility] POCT GLUCOSE (AUTOMATED) 2024-07-17 22:08:00 Gino Rico [facility] POCT GLUCOSE (AUTOMATED) 2024-07-17 22:08:00 Gino Rico [facility] ACTIVATED PARTIAL THRMPLAS MILKA 2024-07-17 21:03:00 Rebecca Richmond [facility] ACTIVATED PARTIAL THRMPLAS MILKA 2024-07-17 21:03:00 Rebecca Richmond [facility] ACTIVATED PARTIAL THRMPLAS MILKA 2024-07-17 21:03:00 Rebecca Richmond [facility] ACTIVATED PARTIAL THRMPLAS MILKA 2024-07-17 21:03:00 Rebecca Richmond [facility] POCT GLUCOSE (AUTOMATED) 2024-07-17 17:12:00 Gino Rico [facility] POCT GLUCOSE (AUTOMATED) 2024-07-17 17:12:00 Gino Rico [facility] POCT GLUCOSE (AUTOMATED) 2024-07-17 17:12:00 Gino Rico [facility] POCT GLUCOSE (AUTOMATED) 2024-07-17 17:12:00 Gino Rico [facility] POCT GLUCOSE (AUTOMATED) 2024-07-17 13:49:00 Gino Rico [facility] POCT GLUCOSE (AUTOMATED) 2024-07-17 13:49:00 Gino Rico [facility] POCT GLUCOSE (AUTOMATED) 2024-07-17 13:49:00 Gino Rico [facility] POCT GLUCOSE (AUTOMATED) 2024-07-17 13:49:00 Gino Rico [facility] ABORH CONFIRMATION (LAB ONLY) 2024-07-17 11:56:00 Gino Rico [facility] ABORH CONFIRMATION (LAB ONLY) 2024-07-17 11:56:00 Gino Rico [facility] ABORH CONFIRMATION (LAB ONLY) 2024-07-17 11:56:00 Gino Rico [facility] ABORH CONFIRMATION (LAB ONLY) 2024-07-17 11:56:00 Gino iRco [facility] MAGNESIUM 2024-07-17 11:08:00 Pedro Luis [facility] BASIC METABOLIC PANEL (NA, K, CL, CO2, GLUCOSE, BUN, CREATININE, CA) 2024-07-17 11:08:00 Pedro Luis [facility] CBC WITH DIFF 2024-07-17 11:08:00 Pedro Luis [facility] HB ABO GROUPING 2024-07-17 11:08:00 Pedro Luis [facility] MAGNESIUM 2024-07-17 11:08:00 Niyunol [facility] BASIC METABOLIC PANEL (NA, K, CL, CO2, GLUCOSE, BUN, CREATININE, CA) 2024-07-17 11:08:00 Niflaquito [facility] CBC WITH DIFF 2024-07-17 11:08:00 Niflaquito [facility] HB ABO GROUPING 2024-07-17 11:08:00 Niziol [facility] MAGNESIUM 2024-07-17 11:08:00 Niziol [facility] BASIC METABOLIC PANEL (NA, K, CL, CO2, GLUCOSE, BUN, CREATININE, CA) 2024-07-17 11:08:00 Pedro Luis [facility] CBC WITH DIFF 2024-07-17 11:08:00 Niziol [facility] HB ABO GROUPING 2024-07-17 11:08:00 Niziol [facility] HB ABO GROUPING 2024-07-17 11:08:00 Niziol [facility] CBC WITH DIFF 2024-07-17 11:08:00 Niziol [facility] MAGNESIUM 2024-07-17 11:08:00 Niziol [facility] BASIC METABOLIC PANEL (NA, K, CL, CO2, GLUCOSE, BUN, CREATININE, CA) 2024-07-17 11:08:00 Pedro Luis [facility] ACTIVATED PARTIAL THRMPLAS MILKA 2024-07-17 08:54:00 Rebecca Richmond. [facility] ACTIVATED PARTIAL THRMPLAS MILKA 2024-07-17 08:54:00 Rebecca Richmond [facility] ACTIVATED PARTIAL THRMPLAS MILKA 2024-07-17 08:54:00 Rebecca Richmond. [facility] ACTIVATED PARTIAL THRMPLAS MILKA 2024-07-17 08:54:00 Rebecca Richmond [facility] POCT GLUCOSE (AUTOMATED) 2024-07-17 02:17:00 Gino Rico [facility] POCT GLUCOSE (AUTOMATED) 2024-07-17 02:17:00 Gino Rico [facility] POCT GLUCOSE (AUTOMATED) 2024-07-17 02:17:00 Gino Rico [facility] POCT GLUCOSE (AUTOMATED) 2024-07-17 02:17:00 Gino Rico [facility] POCT GLUCOSE (AUTOMATED) 2024-07-16 22:49:00 Gino Rico [facility] POCT GLUCOSE (AUTOMATED) 2024-07-16 22:49:00 Gino Rico [facility] POCT GLUCOSE (AUTOMATED) 2024-07-16 22:49:00 Gino Rico [facility] POCT GLUCOSE (AUTOMATED) 2024-07-16 22:49:00 Gino Rico [facility] ACTIVATED PARTIAL THRMPLAS MILKA 2024-07-16 20:20:00 Rebecca Richmond [facility] ACTIVATED PARTIAL THRMPLAS MILKA 2024-07-16 20:20:00 Rebecca Richmond [facility] ACTIVATED PARTIAL THRMPLAS MILKA 2024-07-16 20:20:00 Rebecca Richmond [facility] ACTIVATED PARTIAL THRMPLAS MILKA 2024-07-16 20:20:00 Rebecca Richmond [facility] POCT GLUCOSE (AUTOMATED) 2024-07-16 17:46:00 Gino Rico [facility] POCT GLUCOSE (AUTOMATED) 2024-07-16 17:46:00 Gino Rico [facility] POCT GLUCOSE (AUTOMATED) 2024-07-16 17:46:00 Gino Rico [facility] POCT GLUCOSE (AUTOMATED) 2024-07-16 17:46:00 Gino Rico [facility] POCT GLUCOSE (AUTOMATED) 2024-07-16 14:56:00 Gino Rico [facility] POCT GLUCOSE (AUTOMATED) 2024-07-16 14:56:00 Gino Rico [facility] POCT GLUCOSE (AUTOMATED) 2024-07-16 14:56:00 Gino Rico [facility] POCT GLUCOSE (AUTOMATED) 2024-07-16 14:56:00 Gino Rico [facility] MAGNESIUM 2024-07-16 07:53:00 Vernon Cloud [facility] BASIC METABOLIC PANEL (NA, K, CL, CO2, GLUCOSE, BUN, CREATININE, CA) 2024-07-16 07:53:00 Pedro Luis [facility] CBC WITH DIFF 2024-07-16 07:53:00 Niziol [facility] ACTIVATED PARTIAL THRMPLAS MILKA 2024-07-16 07:53:00 Rebecca Richmond [facility] MAGNESIUM 2024-07-16 07:53:00 Vernon Cloud [facility] BASIC METABOLIC PANEL (NA, K, CL, CO2, GLUCOSE, BUN, CREATININE, CA) 2024-07-16 07:53:00 Pedro Luis [facility] CBC WITH DIFF 2024-07-16 07:53:00 Niyunol [facility] ACTIVATED PARTIAL THRMPLAS MILKA 2024-07-16 07:53:00 Rebecca Richmond [facility] MAGNESIUM 2024-07-16 07:53:00 Niflaquito [facility] BASIC METABOLIC PANEL (NA, K, CL, CO2, GLUCOSE, BUN, CREATININE, CA) 2024-07-16 07:53:00 Vernon Cloud [facility] CBC WITH DIFF 2024-07-16 07:53:00 Pedro Luis [facility] ACTIVATED PARTIAL THRMPLAS MILKA 2024-07-16 07:53:00 Rebecca Richmond [facility] CBC WITH DIFF 2024-07-16 07:53:00 Niziol [facility] MAGNESIUM 2024-07-16 07:53:00 Niflaquito [facility] BASIC METABOLIC PANEL (NA, K, CL, CO2, GLUCOSE, BUN, CREATININE, CA) 2024-07-16 07:53:00 Pedro Luis [facility] ACTIVATED PARTIAL THRMPLAS MILKA 2024-07-16 07:53:00 Rebecca Richmond [facility] POCT GLUCOSE (AUTOMATED) 2024-07-16 03:06:00 Gino Rico [facility] POCT GLUCOSE (AUTOMATED) 2024-07-16 03:06:00 Robel Ricoamanda Darian [facility] POCT GLUCOSE (AUTOMATED) 2024-07-16 03:06:00 Gino Rico [facility] POCT GLUCOSE (AUTOMATED) 2024-07-16 03:06:00 VanessaRobel briggsamanda Darian [facility] POCT GLUCOSE (AUTOMATED) 2024-07-15 23:48:00 Gino Rico [facility] POCT GLUCOSE (AUTOMATED) 2024-07-15 23:48:00 Robel Ricoamanda Darian [facility] POCT GLUCOSE (AUTOMATED) 2024-07-15 23:48:00 Gino Rico [facility] POCT GLUCOSE (AUTOMATED) 2024-07-15 23:48:00 JackyRobelamanda Darian [facility] URINE DRUG (IMMUNOASSAY) - COMPREHENSIVE DRUG SCREEN 2024-07-15 18:54:00 [facility] URINE DRUG (IMMUNOASSAY) - COMPREHENSIVE DRUG SCREEN 2024-07-15 18:54:00 [facility] URINE DRUG (LCMSMS) - SYNTHETIC OPIATES PANEL 2024-07-15 18:54:00 [facility] URINE DRUG (IMMUNOASSAY) - COMPREHENSIVE DRUG SCREEN 2024-07-15 18:54:00 [facility] URINE DRUG (LCMSMS) - SYNTHETIC OPIATES PANEL 2024-07-15 18:54:00 [facility] URINE DRUG (IMMUNOASSAY) - COMPREHENSIVE DRUG SCREEN 2024-07-15 18:54:00 [facility] URINE DRUG (LCMSMS) - OPIATES PANEL 2024-07-15 18:54:00 [facility] TROPONIN I 2024-07-15 18:53:00 [place] Cloud [facility] ACTIVATED PARTIAL THRMPLAS MILKA 2024-07-15 18:53:00 Rebecca Richmond [facility] TROPONIN I 2024-07-15 18:53:00 Pedro Luis [facility] ACTIVATED PARTIAL THRMPLAS MILKA 2024-07-15 18:53:00 Rebecca Richmond [facility] TROPONIN I 2024-07-15 18:53:00 Niyunol [facility] ACTIVATED PARTIAL THRMPLAS MILKA 2024-07-15 18:53:00 Rebecca Richmond [facility] TROPONIN I 2024-07-15 18:53:00 Niyunol [facility] ACTIVATED PARTIAL THRMPLAS MILKA 2024-07-15 18:53:00 Rebecca Richmond [facility] POCT GLUCOSE (AUTOMATED) 2024-07-15 17:52:00 Gino Rico [facility] POCT GLUCOSE (AUTOMATED) 2024-07-15 17:52:00 Gino Rico [facility] POCT GLUCOSE (AUTOMATED) 2024-07-15 17:52:00 Gino Rico [facility] POCT GLUCOSE (AUTOMATED) 2024-07-15 17:52:00 Gino Rico [facility] POCT GLUCOSE (AUTOMATED) 2024-07-15 14:02:00 Gino Rico [facility] POCT GLUCOSE (AUTOMATED) 2024-07-15 14:02:00 Gino Rico [facility] POCT GLUCOSE (AUTOMATED) 2024-07-15 14:02:00 Gino Rico [facility] POCT GLUCOSE (AUTOMATED) 2024-07-15 14:02:00 Gino Rico [facility] MAGNESIUM 2024-07-15 07:14:00 Pedro Luis [facility] TROPONIN I 2024-07-15 07:14:00 Pedro Luis [facility] BASIC METABOLIC PANEL (NA, K, CL, CO2, GLUCOSE, BUN, CREATININE, CA) 2024-07-15 07:14:00 Pedro Luis [facility] LIPID PANEL ([id number])(TOTAL CHOLESTEROL, TRIGLYCERIDES, HDL) 2024-07-15 07:14:00 Niziol, [facility] CBC WITH DIFF 2024-07-15 07:14:00 Niziol, [facility] ACTIVATED PARTIAL THRMPLAS MILKA 2024-07-15 07:14:00 Rebecca Richmond [facility] MAGNESIUM 2024-07-15 07:14:00 Niziol, [facility] TROPONIN I 2024-07-15 07:14:00 Niziol, [facility] BASIC METABOLIC PANEL (NA, K, CL, CO2, GLUCOSE, BUN, CREATININE, CA) 2024-07-15 07:14:00 Niziol, [facility] LIPID PANEL ([id number])(TOTAL CHOLESTEROL, TRIGLYCERIDES, HDL) 2024-07-15 07:14:00 Niziol, [facility] CBC WITH DIFF 2024-07-15 07:14:00 Niziol, [facility] ACTIVATED PARTIAL THRMPLAS MILKA 2024-07-15 07:14:00 Rebecca Richmond [facility] MAGNESIUM 2024-07-15 07:14:00 Niziol, [facility] TROPONIN I 2024-07-15 07:14:00 Niziol, [facility] BASIC METABOLIC PANEL (NA, K, CL, CO2, GLUCOSE, BUN, CREATININE, CA) 2024-07-15 07:14:00 Niziol, [facility] LIPID PANEL ([id number])(TOTAL CHOLESTEROL, TRIGLYCERIDES, HDL) 2024-07-15 07:14:00 Niziol, [facility] CBC WITH DIFF 2024-07-15 07:14:00 Niziol, [facility] ACTIVATED PARTIAL THRMPLAS MILKA 2024-07-15 07:14:00 Rebecca Richmond [facility] ACTIVATED PARTIAL THRMPLAS MILKA 2024-07-15 07:14:00 Rebecca Richmond [facility] CBC WITH DIFF 2024-07-15 07:14:00 Niziol, [facility] MAGNESIUM 2024-07-15 07:14:00 Niziol, [facility] BASIC METABOLIC PANEL (NA, K, CL, CO2, GLUCOSE, BUN, CREATININE, CA) 2024-07-15 07:14:00 Pedro Luis [facility] TROPONIN I 2024-07-15 07:14:00 Pedro Luis [facility] LIPID PANEL ([id number])(TOTAL CHOLESTEROL, TRIGLYCERIDES, HDL) 2024-07-15 07:14:00 Pedro Luis [facility] POCT GLUCOSE (AUTOMATED) 2024-07-15 02:54:00 Gino Rico [facility] POCT GLUCOSE (AUTOMATED) 2024-07-15 02:54:00 Gino Rico [facility] POCT GLUCOSE (AUTOMATED) 2024-07-15 02:54:00 Gino Rico [facility] POCT GLUCOSE (AUTOMATED) 2024-07-15 02:54:00 Gino Rico [facility] POCT GLUCOSE (AUTOMATED) 2024-07-14 22:21:00 Gino Rico [facility] POCT GLUCOSE (AUTOMATED) 2024-07-14 22:21:00 Gino Rico [facility] POCT GLUCOSE (AUTOMATED) 2024-07-14 22:21:00 Gino Rico [facility] POCT GLUCOSE (AUTOMATED) 2024-07-14 22:21:00 Gino Rico [facility] ACTIVATED PARTIAL THRMPLAS MILKA 2024-07-14 18:04:00 Rebecca Richmond [facility] ACTIVATED PARTIAL THRMPLAS MILKA 2024-07-14 18:04:00 Rebecca Richmond [facility] ACTIVATED PARTIAL THRMPLAS MILKA 2024-07-14 18:04:00 Rebecca Richmond [facility] ACTIVATED PARTIAL THRMPLAS MILKA 2024-07-14 18:04:00 Rebecca Richmond [facility] POCT GLUCOSE (AUTOMATED) 2024-07-14 17:41:00 Gino Rico [facility] POCT GLUCOSE (AUTOMATED) 2024-07-14 17:41:00 Gino Rico [facility] POCT GLUCOSE (AUTOMATED) 2024-07-14 17:41:00 Gino Rico [facility] POCT GLUCOSE (AUTOMATED) 2024-07-14 17:41:00 Gino Rico [facility] TRANSTHORACIC ECHO (TTE) COMPLETE W/ CONTRAST 2024-07-14 15:42:12 [place] [facility] TRANSTHORACIC ECHO (TTE) COMPLETE W/ CONTRAST 2024-07-14 15:42:12 [place] [facility] TRANSTHORACIC ECHO (TTE) COMPLETE W/ CONTRAST 2024-07-14 15:42:12 Pedro Luis [facility] TRANSTHORACIC ECHO (TTE) COMPLETE W/ CONTRAST 2024-07-14 15:42:12 [place] [facility] POCT GLUCOSE (AUTOMATED) 2024-07-14 14:11:00 Gino Rico [facility] POCT GLUCOSE (AUTOMATED) 2024-07-14 14:11:00 Gino Rico [facility] POCT GLUCOSE (AUTOMATED) 2024-07-14 14:11:00 Gino Rico [facility] POCT GLUCOSE (AUTOMATED) 2024-07-14 14:11:00 Gino Rico [facility] HB ECG ROUTINE & RHYTHM STRIP 2024-07-14 14:08:41 Rebecca Richmond [facility] HB ECG ROUTINE & RHYTHM STRIP 2024-07-14 14:08:41 Rebecca Richmond [facility] HB ECG ROUTINE & RHYTHM STRIP 2024-07-14 14:08:41 Rebecca Richmond [facility] HB ECG ROUTINE & RHYTHM STRIP 2024-07-14 14:08:41 Rebecca Richmond [facility] C-REACTIVE PROTEIN 2024-07-14 10:20:00 Chano Braga [facility] TROPONIN I 2024-07-14 10:20:00 Rebecca Richmond [facility] LIPID PANEL ([id number])(TOTAL CHOLESTEROL, TRIGLYCERIDES, HDL) 2024-07-14 10:20:00 [place] [facility] PROCALCITONIN 2024-07-14 10:20:[address] [facility] C-REACTIVE PROTEIN 2024-07-14 10:20:00 [facility] TROPONIN I 2024-07-14 10:20:00 Rebecca Richmond [facility] LIPID PANEL ([id number])(TOTAL CHOLESTEROL, TRIGLYCERIDES, HDL) 2024-07-14 10:20:00 Pedro Luis [facility] PROCALCITONIN 2024-07-14 10:20:[address] [facility] C-REACTIVE PROTEIN 2024-07-14 10:20:[address] [facility] TROPONIN I 2024-07-14 10:20:00 Rebecca Richmond [facility] LIPID PANEL ([id number])(TOTAL CHOLESTEROL, TRIGLYCERIDES, HDL) 2024-07-14 10:20:00 Pedro Luis [facility] PROCALCITONIN 2024-07-14 10:20:[address] [facility] TROPONIN I 2024-07-14 10:20:00 Rebecca Richmond [facility] PROCALCITONIN 2024-07-14 10:20:[address] [facility] C-REACTIVE PROTEIN 2024-07-14 10:20:[address] [facility] LIPID PANEL ([id number])(TOTAL CHOLESTEROL, TRIGLYCERIDES, HDL) 2024-07-14 10:20:00 [place] [facility] MAGNESIUM 2024-07-14 06:05:00 Rebecca Richmond [facility] TROPONIN I 2024-07-14 06:05:00 Rebecca Richmond [facility] BASIC METABOLIC PANEL (NA, K, CL, CO2, GLUCOSE, BUN, CREATININE, CA) 2024-07-14 06:05:00 Rebecca Richmond [facility] SEDIMENTATION RATE 2024-07-14 06:05:[address] [facility] CBC WITH DIFF 2024-07-14 06:05:00 Rebecca Richmond [facility] ACTIVATED PARTIAL THRMPLAS MILKA 2024-07-14 06:05:00 Rebecca Richmond [facility] MAGNESIUM 2024-07-14 06:05:00 Rebecca Richmond [facility] TROPONIN I 2024-07-14 06:05:00 Rebecca Richmond [facility] BASIC METABOLIC PANEL (NA, K, CL, CO2, GLUCOSE, BUN, CREATININE, CA) 2024-07-14 06:05:00 Rebecca Richmond [facility] SEDIMENTATION RATE 2024-07-14 06:05:00 Chano Braga [facility] CBC WITH DIFF 2024-07-14 06:05:00 Rebecca Richmond [facility] ACTIVATED PARTIAL THRMPLAS MILKA 2024-07-14 06:05:00 Rebecca Richmond [facility] MAGNESIUM 2024-07-14 06:05:00 Rebecca Richmond [facility] TROPONIN I 2024-07-14 06:05:00 Rebecca Richmond [facility] BASIC METABOLIC PANEL (NA, K, CL, CO2, GLUCOSE, BUN, CREATININE, CA) 2024-07-14 06:05:00 Rebecca Richmond [facility] SEDIMENTATION RATE 2024-07-14 06:05:00 Chano Braga [facility] CBC WITH DIFF 2024-07-14 06:05:00 Rebecca Richmond [facility] ACTIVATED PARTIAL THRMPLAS MILKA 2024-07-14 06:05:00 Rebecca Richmond [facility] TROPONIN I 2024-07-14 06:05:00 Rebecca Richmond [facility] CBC WITH DIFF 2024-07-14 06:05:00 Rebecca Richmond [facility] BASIC METABOLIC PANEL (NA, K, CL, CO2, GLUCOSE, BUN, CREATININE, CA) 2024-07-14 06:05:00 Rebecca Richmond [facility] MAGNESIUM 2024-07-14 06:05:00 Rebecca Richmond [facility] ACTIVATED PARTIAL THRMPLAS MILKA 2024-07-14 06:05:00 Rebecca Richmond [facility] SEDIMENTATION RATE 2024-07-14 06:05:00 Chano Braga [facility] POCT GLUCOSE (AUTOMATED) 2024-07-14 04:14:00 Gino Rico [facility] POCT GLUCOSE (AUTOMATED) 2024-07-14 04:14:00 Gino Rico [facility] POCT GLUCOSE (AUTOMATED) 2024-07-14 04:14:00 Gino Rico [facility] POCT GLUCOSE (AUTOMATED) 2024-07-14 04:14:00 Gino Rico [facility] HB ECG ROUTINE & RHYTHM STRIP 2024-07-14 03:11:56 Rebecca Richmond [facility] HB ECG ROUTINE & RHYTHM STRIP 2024-07-14 03:11:56 Rebecca Richmond [facility] HB ECG ROUTINE & RHYTHM STRIP 2024-07-14 03:11:56 Rebecca Richmond [facility] HB ECG ROUTINE & RHYTHM STRIP 2024-07-14 03:11:56 Rebecca Richmond [facility] LACTIC ACID WHOLE BLOOD 2024-07-14 00:48:00 Rebecca Richmond [facility] LACTIC ACID WHOLE BLOOD 2024-07-14 00:48:00 Rebecca Richmond [facility] LACTIC ACID WHOLE BLOOD 2024-07-14 00:48:00 Rebecca Richmond [facility] LACTIC ACID WHOLE BLOOD 2024-07-14 00:48:00 Rebecca Richmond [facility] PHOSPHORUS 2024-07-13 21:44:00 Rebecca Richmond [facility] TROPONIN I 2024-07-13 21:44:00 Jairo Jordan [facility] PHOSPHORUS 2024-07-13 21:44:00 Rebecca Richmond [facility] TROPONIN I 2024-07-13 21:44:00 Jairo Jordan [facility] PHOSPHORUS 2024-07-13 21:44:00 Rebecca Richmond [facility] TROPONIN I 2024-07-13 21:44:00 Jairo Jordan [facility] TROPONIN I 2024-07-13 21:44:00 Jairo Jordan [facility] PHOSPHORUS 2024-07-13 21:44:00 Rebecca Richmond [facility] URINALYSIS 2024-07-13 19:29:00 Jairo Jordan [facility] URINALYSIS 2024-07-13 19:29:00 Jairo Jordan [facility] URINALYSIS 2024-07-13 19:29:00 Jairo Jordan Janny [facility] URINALYSIS 2024-07-13 19:29:00 Jairo Jordan Janny [facility] XR CHEST 1 VW 2024-07-13 18:29:28 Jairo Jordan Janny [facility] XR CHEST 1 VW 2024-07-13 18:29:28 Jairo Jordan Janny [facility] XR CHEST 1 VW 2024-07-13 18:29:28 Jairo Jordan Janny [facility] XR CHEST 1 VW 2024-07-13 18:29:28 Jairo Jordan Janny [facility] HB ECG ROUTINE & RHYTHM STRIP 2024-07-13 18:08:00 Jairo Jordan Janny [facility] HB ECG ROUTINE & RHYTHM STRIP 2024-07-13 18:08:00 Jairo Jordan Janny [facility] HB ECG ROUTINE & RHYTHM STRIP 2024-07-13 18:08:00 Jairo Jordan Janny [facility] HB ECG ROUTINE & RHYTHM STRIP 2024-07-13 18:08:00 Jairo Jordan Janny [facility] MAGNESIUM 2024-07-13 17:57:00 Jairo Jordan Janny [facility] TROPONIN I 2024-07-13 17:57:00 Jairo Jordan Janny [facility] COMP. METABOLIC PANEL ([id number]) 2024-07-13 17:57:00 Jairo Jordan Janny [facility] CBC WITH DIFF 2024-07-13 17:57:00 Nikki, K Janny [facility] N-TERMINAL PRO-BNP 2024-07-13 17:57:00 Nikki, K Janny [facility] MAGNESIUM 2024-07-13 17:57:00 Nikki, K Janny [facility] TROPONIN I 2024-07-13 17:57:00 Nikki, K [facility] COMP. METABOLIC PANEL ([id number]) 2024-07-13 17:57:00 Nikki, K Janny [facility] CBC WITH DIFF 2024-07-13 17:57:00 Nikki, K [facility] N-TERMINAL PRO-BNP 2024-07-13 17:57:00 Nikki, K Janny [facility] MAGNESIUM 2024-07-13 17:57:00 NikkiJairo [facility] TROPONIN I 2024-07-13 17:57:00 Jairo Jordan [facility] COMP. METABOLIC PANEL ([id number]) 2024-07-13 17:57:00 Nikki, K [facility] CBC WITH DIFF 2024-07-13 17:57:00 Nikki, K [facility] N-TERMINAL PRO-BNP 2024-07-13 17:57:00 Nikki, K [facility] N-TERMINAL PRO-BNP 2024-07-13 17:57:00 Nikki, K [facility] CBC WITH DIFF 2024-07-13 17:57:00 Nikki, K [facility] COMP. METABOLIC PANEL ([id number]) 2024-07-13 17:57:00 NikkiJairo Janny [facility] MAGNESIUM 2024-07-13 17:57:00 NikkiJairo [facility] TROPONIN I 2024-07-13 17:57:00 NikkiJairo [facility] CBC WITH DIFF 2024-07-13 16:54:00 Brooks Barker [facility] COMP. METABOLIC PANEL ([id number]) 2024-07-13 16:54:00 [facility] GLYCOSYLATED HEMOGLOBIN (A1C) 2024-07-13 16:54:00 Mj [facility] CBC WITH DIFF 2024-07-13 16:54:00 Mj [facility] N-TERMINAL PRO-BNP 2024-07-13 16:54:00 [facility] POCT GLUCOSE (AUTOMATED) 2024-07-04 17:51:00 Isela [facility] POCT GLUCOSE (AUTOMATED) 2024-07-04 17:51:00 Isela [facility] POCT GLUCOSE (AUTOMATED) 2024-07-04 13:45:00 Isela [facility] POCT GLUCOSE (AUTOMATED) 2024-07-04 13:45:00 Isela [facility] PHOSPHORUS 2024-07-04 09:38:00 sIela [facility] MAGNESIUM 2024-07-04 09:38:00 Isela [facility] TROPONIN I 2024-07-04 09:38:00 Isela [facility] BASIC METABOLIC PANEL (NA, K, CL, CO2, GLUCOSE, BUN, CREATININE, CA) 2024-07-04 09:38:00 Isela [facility] N-TERMINAL PRO-BNP 2024-07-04 09:38:00 Isela [facility] PHOSPHORUS 2024-07-04 09:38:00 Isela [facility] TROPONIN I 2024-07-04 09:38:00 Isela [facility] BASIC METABOLIC PANEL (NA, K, CL, CO2, GLUCOSE, BUN, CREATININE, CA) 2024-07-04 09:38:00 Isela [facility] MAGNESIUM 2024-07-04 09:38:00 Isela [facility] N-TERMINAL PRO-BNP 2024-07-04 09:38:00 Isela [facility] TROPONIN I 2024-07-04 03:35:00 [facility]24-07-04 03:35:00 Isela [facility] POCT GLUCOSE (AUTOMATED) 2024-07-04 02:31:00 [facility] 2024-07-04 02:31:00 [facility] / INR 2024-07-03 23:31:00 Ruben [facility] ACTIVATED PARTIAL THRMPLAS MILKA 2024-07-03 23:31:00 [facility] / [facility] 2024-07-03 23:31:00 [facility]IVATED PARTIAL THRMPLAS MILKA 2024-07-03 23:31:00 Ruben [facility] HB ECG ROUTINE & RHYTHM STRIP 2024-07-03 23:25:43 Ruben [facility] HB ECG ROUTINE & RHYTHM STRIP 2024-07-03 23:25:43 Ruben [facility] XR CHEST 1 VW 2024-07-03 22:29:35 Ruben [facility] XR CHEST 1 VW 2024-07-03 22:29:35 Ruben [facility] LIPASE 2024-07-03 21:21:00 Ruben [facility] TROPONIN I 2024-07-03 21:21:00 Ruben [facility] COMP. METABOLIC PANEL ([id number]) 2024-07-03 21:21:00 Ruben [facility] CBC WITH DIFF 2024-07-03 21:21:00 Ruben [facility] N-TERMINAL PRO-BNP 2024-07-03 21:21:00 Ruben [facility] CBC WITH DIFF 2024-07-03 21:21:00 Ruben [facility] COMP. METABOLIC PANEL ([id number]) 2024-07-03 21:21:00 Ruben [facility] LIPASE 2024-07-03 21:21:00 Ruben [facility] TROPONIN I 2024-07-03 21:21:00 [facility] N-[facility]MINAL PRO-BNP 2024-07-03 21:21:00 Ruben Michelle [facility] EKG-12 LEAD 2024-07-03 21:18:45 Ruben Michelle [facility] CRITICAL CARE 2024-07-03 21:12:00 Michelle Miranda [facility] CRITICAL CARE 2024-07-03 21:12:00 Michelle Miranda [facility] CARDIAC DEVICE CHECK - REMOTE - ICD 2024-06-26 02:30:42 [facility] - REMOTE - ICD 2024-06-26 02:30:42 [facility] WITH DIFF 2024-06-20 16:38:00 Mj [facility] COMP. METABOLIC PANEL ([id number]) 2024-06-20 16:38:00 Mj [facility] LIPID PANEL ([id number])(TOTAL CHOLESTEROL, TRIGLYCERIDES, HDL) 2024-06-20 16:38:00 Mj [facility] THYROID STIMULATING HORMONE 2024-06-20 16:38:00 Mj [facility] GLYCOSYLATED HEMOGLOBIN (A1C) 2024-06-20 16:38:00 Mj [facility] N-TERMINAL PRO-BNP 2024-06-20 16:38:00 David Ladd [facility] HCV ANTIBODY 2024-06-20 16:38:00 Mj [facility] PROSTATIC SPECIFIC ANTIGEN 2024-06-20 16:38:00 Mj [facility] MAGNESIUM 2024-06-20 16:38:00 David Ladd [facility] POCT GLUCOSE (AUTOMATED) 2024-05-17 21:58:00 Yared Larios [facility] POCT GLUCOSE (AUTOMATED) 2024-05-17 21:58:00 Yared Larios [facility] TROPONIN I 2024-05-17 21:35:00 Autumn [facility] TROPONIN I 2024-05-17 21:35:00 Autumn [facility] TROPONIN I 2024-05-17 18:59:00 Autumn [facility] TROPONIN I 2024-05-17 18:59:00 Autumn [facility] HB ECG ROUTINE & RHYTHM STRIP 2024-05-17 18:54:50 Autumn [facility] HB ECG ROUTINE & RHYTHM STRIP 2024-05-17 18:54:50 Autumn [facility] POCT GLUCOSE (AUTOMATED) 2024-05-17 16:45:00 Yared Larios [facility] POCT GLUCOSE (AUTOMATED) 2024-05-17 16:45:00 Yared Larios [facility] POCT GLUCOSE (AUTOMATED) 2024-05-17 12:37:00 Yared Larios [facility] POCT GLUCOSE (AUTOMATED) 2024-05-17 12:37:00 Yared Larios [facility] BASIC METABOLIC PANEL (NA, K, CL, CO2, GLUCOSE, BUN, CREATININE, CA) 2024-05-17 08:51:00 Santana [facility] CBC WITH DIFF 2024-05-17 08:51:00 Santana [facility] CBC WITH DIFF 2024-05-17 08:51:00 Santana [facility] BASIC METABOLIC PANEL (NA, K, CL, CO2, GLUCOSE, BUN, CREATININE, CA) 2024-05-17 08:51:00 Santana [facility] POCT GLUCOSE (AUTOMATED) 2024-05-17 01:06:00 Yared Larios [facility] POCT GLUCOSE (AUTOMATED) 2024-05-17 01:06:00 Yared Larios [facility] POCT GLUCOSE (AUTOMATED) 2024-05-16 21:11:00 Yared Larios [facility] POCT GLUCOSE (AUTOMATED) 2024-05-16 21:11:00 Yared Larios [facility] POCT GLUCOSE (AUTOMATED) 2024-05-16 19:08:00 Yared Larios [facility] POCT GLUCOSE (AUTOMATED) 2024-05-16 19:08:00 Yared Larios [facility] POCT GLUCOSE (AUTOMATED) 2024-05-16 16:08:00 Yared Larios [facility] POCT GLUCOSE (AUTOMATED) 2024-05-16 16:08:00 Yared Larios [facility] POCT GLUCOSE (AUTOMATED) 2024-05-16 12:39:00 Yared Larios [facility] POCT GLUCOSE (AUTOMATED) 2024-05-16 12:39:00 Yared Larios [facility] MAGNESIUM 2024-05-16 07:55:00 Yared Larios [facility] TROPONIN I 2024-05-16 07:55:00 Bj Weiss [facility] BASIC METABOLIC PANEL (NA, K, CL, CO2, GLUCOSE, BUN, CREATININE, CA) 2024-05-16 07:55:00 Yared Larios [facility] CBC WITH DIFF 2024-05-16 07:55:00 Yared Larios [facility] N-TERMINAL PRO-BNP 2024-05-16 07:55:00 Bj Weiss [facility] CBC WITH DIFF 2024-05-16 07:55:00 Yared Larios [facility] BASIC METABOLIC PANEL (NA, K, CL, CO2, GLUCOSE, BUN, CREATININE, CA) 2024-05-16 07:55:00 Yared Larios [facility] MAGNESIUM 2024-05-16 07:55:00 Yared Larios [facility] TROPONIN I 2024-05-16 07:55:00 Bj Weiss [facility] N-TERMINAL PRO-BNP 2024-05-16 07:55:00 Bj Weiss [facility] POCT GLUCOSE (AUTOMATED) 2024-05-16 02:06:00 Yared Larios [facility] POCT GLUCOSE (AUTOMATED) 2024-05-16 02:06:00 Yared Larios [facility] TRANSTHORACIC ECHO (TTE) COMPLETE W/ CONTRAST 2024-05-15 14:15:00 Yared Larios [facility] TRANSTHORACIC ECHO (TTE) COMPLETE W/ CONTRAST 2024-05-15 14:15:00 Yared Larios [facility] TROPONIN I 2024-05-15 07:49:00 Yared Larios [facility] HEPATIC FUNCTION PANEL ([id number]) (ALB,T.PRO,BILI T,BU/BC,ALT,AST,ALK PHOS) 2024-05-15 07:49:00 Yared Larios [facility] LIPID PANEL ([id number])(TOTAL CHOLESTEROL, TRIGLYCERIDES, HDL) 2024-05-15 07:49:00 Yared Larios [facility] N-TERMINAL PRO-BNP 2024-05-15 07:49:00 Yared Larios [facility] HEPATIC FUNCTION PANEL ([id number]) (ALB,T.PRO,BILI T,BU/BC,ALT,AST,ALK PHOS) 2024-05-15 07:49:00 Yared Larios [facility] TROPONIN I 2024-05-15 07:49:00 Yared Larios [facility] LIPID PANEL ([id number])(TOTAL CHOLESTEROL, TRIGLYCERIDES, HDL) 2024-05-15 07:49:00 Yared Larios [facility] N-TERMINAL PRO-BNP 2024-05-15 07:49:00 Yared Larios [facility] XR CHEST 1 VW 2024-05-15 05:39:32 Pia Watts [facility] XR CHEST 1 VW 2024-05-15 05:39:32 Pia Watts [facility] LIPASE 2024-05-15 05:19:00 Pia Watts [facility] MAGNESIUM 2024-05-15 05:19:00 Watts, [facility] TROPONIN I 2024-05-15 05:19:00 Singer [facility] COMP. METABOLIC PANEL ([id number]) 2024-05-15 05:19:00 Watts, [facility] CBC WITH DIFF 2024-05-15 05:19:00 Singer [facility] N-TERMINAL PRO-BNP 2024-05-15 05:19:00 Singer [facility] CBC WITH DIFF 2024-05-15 05:19:00 Singer [facility] COMP. METABOLIC PANEL ([id number]) 2024-05-15 05:19:00 Singer [facility] MAGNESIUM 2024-05-15 05:19:00 Singer [facility] LIPASE 2024-05-15 [facility]24-05-15 05:19:00 Singer [facility] TROPONIN I 2024-05-15 05:19:00 Singer [facility] HB ECG ROUTINE & RHYTHM STRIP 2024-05-15 05:12:18 Singer [facility] HB ECG ROUTINE & RHYTHM STRIP 2024-05-15 05:12[facility] ([facility]OMATED) 2024-04-06 12:32:00 Isela [facility] MAGNESIUM 2024-04-06 07:46:00 Isela [facility] BASIC METABOLIC PANEL (NA, K, CL, CO2, GLUCOSE, BUN, CREATININE, CA) 2024-04-06 07:46:00 Debby Pate [facility] CBC WITH DIFF 2024-04-06 07:46:00 Debby Pate [facility] N-TERMINAL PRO-BNP 2024-04-06 07:46:00 Isela [facility] POCT GLUCOSE (AUTOMATED) 2024-04-06 01:30:00 Isela [facility] POCT GLUCOSE (AUTOMATED) 2024-04-05 21:50:00 Isela [facility] POCT GLUCOSE (AUTOMATED) 2024-04-05 17:14:00 Isela [facility] POCT GLUCOSE (AUTOMATED) 2024-04-05 12:48:00 Isela [facility] MAGNESIUM 2024-04-05 09:06:00 Isela [facility] HEPATIC FUNCTION PANEL ([id number]) (ALB,T.PRO,BILI T,BU/BC,ALT,AST,ALK PHOS) 2024-04-05 09:06:00 Isela [facility] BASIC METABOLIC PANEL (NA, K, CL, CO2, GLUCOSE, BUN, CREATININE, CA) 2024-04-05 09:06:00 Isela [facility] CBC WITHOUT DIFF 2024-04-05 09:06:00 Isela [facility] N-TERMINAL PRO-BNP 2024-04-05 09:06:00 Isela [facility] TROPONIN I 2024-04-05 04:36:00 Isela [facility] POCT GLUCOSE (AUTOMATED) 2024-04-05 01:19:00 Isela [facility] POCT GLUCOSE (AUTOMATED) 2024-04-04 22:05:00 Isela [facility] TROPONIN I 2024-04-04 22:04:00 Isela [facility] XR CHEST 1 VW 2024-04-04 17:23:00 Ruben [facility] TROPONIN I 2024-04-04 17:13:00 Ruben [facility] COMP. METABOLIC PANEL ([id number]) 2024-04-04 17:13:00 Ruben [facility] CBC WITH DIFF 2024-04-04 17:13:00 Ruben [facility] N-TERMINAL PRO-BNP 2024-04-04 17:13:00 Ruben [facility] HB ECG ROUTINE & RHYTHM STRIP 2024-04-04 17:02:20 Ruben [facility] CRITICAL CARE 2024-04-04 16:50:00 Michelle Miranda [facility] THYROID STIMULATING HORMONE 2023-11-19 13:04:00 David Ladd [facility] PHYSICIAN ORDERS 2023-11-17 18:56:16 Doctor Unassigned, [place] [facility] - OTHER 2023-11-06 16:18:17 Doctor Unassigned, [place] [facility] EXTERNAL PROVIDER - ADC CARDIOLOGY 2023-09-02 06:01:00 Doctor Unassigned, [place] [facility] [facility] TRANSTHORACIC ECHO (TTE) COMPLETE W/ CONTRAST 2023-07-30 20:54:00 David Ladd [facility] 2023-06-03 05:01:00 Doctor Unassigned, [place] [facility] AUTHORIZATION FOR RELEASE OF PHI 2023-05-04 05:01:00 Doctor Unassigned, [place] [facility] URINALYSIS 2023-03-28 07:45:00 Jorge Yañez [facility] CT ABDOMEN PELVIS WO CONTRAST 2023-03-28 05:49:38 Jorge Yañez [facility] COMP. METABOLIC PANEL ([id number]) 2023-03-28 03:46:00 oJrge Yañez [facility] CBC WITH DIFF 2023-03-28 03:46:00 Jorge Yañez [facility] ASSIGNMENT OF BENEFITS 2022-10-27 15:17:06 Doctor Unassigned, [place] [facility] 2022-08-27 06:01:00 Doctor Unassigned, [place] [facility] AUTHORIZATION FOR RELEASE OF PHI 2022-06-12 06:01:00 Doctor Unassigned, [place] [facility] - OTHER 2022-06-10 06:01:00 Doctor Unassigned, [place] [facility] POCT GLUCOSE (AUTOMATED) 2022-06-09 22:52:00 Bj Weiss [facility] COVID-19 (ID NOW RAPID TESTING) 2022-06-09 20:00:00 Rosales Willard [facility] POCT GLUCOSE (AUTOMATED) 2022-06-09 17:56:00 [facility] 2022-06-09 13:39:00 [facility] BASIC METABOLIC PANEL (NA, K, CL, CO2, GLUCOSE, BUN, CREATININE, CA) 2022-06-09 11:16:00 Debby Pate [facility] CBC WITH DIFF 2022-06-09 11:16:00 Debby Pate [facility] POCT GLUCOSE (AUTOMATED) 2022-06-09 02:59:00 [facility]) 2022-06-08 22:45:00 Isela [facility] POCT GLUCOSE (AUTOMATED) 2022-06-08 17:33:00 Isela [facility] BLOOD CULTURE SCREEN 2022-06-08 15:34:00 Autumn [facility] POCT GLUCOSE (AUTOMATED) 2022-06-08 13:38:00 Isela [facility] COMP. METABOLIC PANEL ([id number]) 2022-06-08 10:57:00 Criss Leyva [facility] CBC WITH DIFF 2022-06-08 10:57:00 Davon [facility] N-TERMINAL PRO-BNP 2022-06-08 10:57:00 Davon Debby [facility] BASIC METABOLIC PANEL (NA, K, CL, CO2, GLUCOSE, BUN, CREATININE, CA) 2022-06-08 03:02:00 Fernanda Sanders [facility] POCT GLUCOSE (AUTOMATED) 2022-06-08 01:25:00 [facility]OMATED) 2022-06-07 21:57:00 [facility] ([facility]OMATED) 2022-06-07 16:34:00 [facility] RETROPER[facility] 2022-06-07 15:10:00 Fernanda Sanders [facility] OSMOLALITY URINE 2022-06-07 13:17:00 Magalis [facility] POTASSIUM, URINE RANDOM 2022-06-07 13:17:00 Magalis, [facility] SODIUM, URINE RANDOM 2022-06-07 13:17:00 Magalis, [facility] PROTEIN CREAT RATIO URINE RANDOM 2022-06-07 13:17:00 Magalis, [facility] POCT GLUCOSE (AUTOMATED) 2022-06-07 12:48:00 Isela [facility] CREATINE KINASE 2022-06-07 08:47:00 Magalis [facility] MAGNESIUM 2022-06-07 08:47:00 Isela [facility] BASIC METABOLIC PANEL (NA, K, CL, CO2, GLUCOSE, BUN, CREATININE, CA) 2022-06-07 08:47:00 Debby Pate [facility] CBC WITH DIFF 2022-06-07 08:47:00 Debby Pate Heidi [facility] N-TERMINAL PRO-BNP 2022-06-07 08:47:00 [facility]SE ([facility]OMATED) 2022-06-06 21:31:00 Criss Leyva [facility] POCT GLUCOSE (AUTOMATED) 2022-06-06 16:40:00 Criss Leyva [facility] POCT GLUCOSE (AUTOMATED) 2022-06-06 12:48:00 Criss Leyva [facility] MRSA / MSSA SCREEN BY [employer] 2022-06-06 10:23:00 Debby Pate [facility] CORTISOL AM 2022-06-06 08:34:00 Yared Larios [facility] FREE T4 2022-06-06 08:34:00 Yared Larios [facility] THYROID STIMULATING HORMONE 2022-06-06 08:34:00 Yared Larios [facility] BASIC METABOLIC PANEL (NA, K, CL, CO2, GLUCOSE, BUN, CREATININE, CA) 2022-06-06 08:34:00 Debby Pate [facility] CBC WITH DIFF 2022-06-06 08:34:00 Debby Pate [facility] GLYCOSYLATED HEMOGLOBIN (A1C) 2022-06-06 08:34:00 Yared Larios [facility] CT HEAD WO CONTRAST 2022-06-05 22:02:10 Martínez [facility] XR CHEST 1 VW 2022-06-05 22:01:15 Martínez [facility] URINALYSIS 2022-06-05 21:22:00 Martínez [facility] URINE DRUG (IMMUNOASSAY) - COMPREHENSIVE DRUG SCREEN W/O REFLEX 2022-06-05 21:22:00 Martínez [facility] AC PANEL 20 + LACTIC ACID 2022-06-05 21:16:00 Martínez [facility] AMMONIA, PLASMA 2022-06-05 21:08:00 Martínez [facility] TROPONIN I 2022-06-05 21:08:00 Martínez [facility] COMP. METABOLIC PANEL ([id number]) 2022-06-05 21:08:00 Martínez [facility] CBC WITH DIFF 2022-06-05 21:08:00 Martínez [facility] PROTHROMBIN TIME / INR 2022-06-05 21:08:00 Martínez [facility] HB ECG ROUTINE & RHYTHM STRIP 2022-06-05 21:03:41 Martínez [facility] XR KNEE <3 VW LEFT 2022-06-04 13:32:05 Kimi Yadav [facility] CONSENT/REFUSAL FOR DIAGNOSIS AND TREATMENT 2022-06-04 12:31:14 Doctor Unassigned, [place] [facility] POCT GLUCOSE (AUTOMATED) 2022-06-03 13:19:00 Bj Weiss [facility] MAGNESIUM 2022-06-03 08:07:00 Janiya Waldron [facility] COMP. METABOLIC PANEL ([id number]) 2022-06-03 08:07:00 Janiya Waldron [facility] N-TERMINAL PRO-BNP 2022-06-03 08:07:00 Vanita ambreen [facility] POCT GLUCOSE (AUTOMATED) 2022-06-02 22:17:00 Bj Weiss [facility] POCT GLUCOSE (AUTOMATED) 2022-06-02 17:11:00 Asad Armendariz [facility] POCT GLUCOSE (AUTOMATED) 2022-06-02 13:00:00 Asad Armendariz [facility] ACUTE CARE VENOUS BLOOD GAS 2022-06-02 10:01:00 Vanita ambreen [facility] PHOSPHORUS 2022-06-02 09:29:00 Vanita [facility] VITAMIN B12, LEVEL 2022-06-02 09:29:00 Vanita [facility] TROPONIN I 2022-06-02 09:29:00 Vanita [facility] COMP. METABOLIC PANEL ([id number]) 2022-06-02 09:29:00 Vanita [facility] CBC WITH DIFF 2022-06-02 09:29:00 Vanita [facility] VITAMIN D, 25-OH 2022-06-02 09:29:00 Vanita [facility] POCT GLUCOSE (AUTOMATED) 2022-06-02 09:17:00 Asad Armendariz [facility] MAGNESIUM 2022-06-02 05:52:00 [facility] 2022-06-02 05:52:00 Isela [facility] BASIC METABOLIC PANEL (NA, K, CL, CO2, GLUCOSE, BUN, CREATININE, CA) 2022-06-02 05:52:00 Isela [facility] N-TERMINAL PRO-BNP 2022-06-02 05:52:00 Isela [facility] TROPONIN I 2022-06-02 00:25:[address] [facility]UCOSE (AUTOMATED) 2022-06-02 00:23:00 Asad Armendariz [facility] POCT GLUCOSE (AUTOMATED) 2022-06-01 21:42:00 Asad Armendariz [facility] XR CHEST 1 VW 2022-06-01 18:05:00 Asad Armendariz [facility] TROPONIN I 2022-06-01 17:45:00 Asad Armendariz [facility] BASIC METABOLIC PANEL (NA, K, CL, CO2, GLUCOSE, BUN, CREATININE, CA) 2022-06-01 17:45:00 Asad Armendariz [facility] CBC WITH DIFF 2022-06-01 17:45:00 Asad Armendariz [facility] N-TERMINAL PRO-BNP 2022-06-01 17:45:00 Asad Armendariz [facility] HB ECG ROUTINE & RHYTHM STRIP 2022-06-01 17:37:46 Asad Armendariz [facility] CATH PROCEDURE LOG 2022-05-28 14:33:43 Hallie Greenberg [facility] CT ABDOMEN PELVIS W CONTRAST 2022-05-22 17:58:34 Mary Reynaga [facility] LIPASE 2022-05-22 16:29:00 Mary Reynaga [facility] TROPONIN I 2022-05-22 16:29:00 Mary Reynaga [facility] COMP. METABOLIC PANEL ([id number]) 2022-05-22 16:29:00 Mary Reynaga [facility] CBC WITH DIFF 2022-05-22 16:29:00 Mary Reynaga [facility] N-TERMINAL PRO-BNP 2022-05-22 16:29:00 Mary Reynaga [facility] POCT GLUCOSE (AUTOMATED) 2022-05-15 16:24:00 Gino Rico [facility] POCT GLUCOSE (AUTOMATED) 2022-05-15 13:10:00 Gino Rico [facility] MAGNESIUM 2022-05-15 09:52:00 Jasen Lee [facility] BASIC METABOLIC PANEL (NA, K, CL, CO2, GLUCOSE, BUN, CREATININE, CA) 2022-05-15 09:52:00 Jasen Lee [facility] CBC WITH DIFF 2022-05-15 09:52:00 Jasen Lee [facility] POCT GLUCOSE (AUTOMATED) 2022-05-15 00:56:00 Gino Rico [facility] POCT GLUCOSE (AUTOMATED) 2022-05-14 21:29:00 Gino Rico [facility] POCT GLUCOSE (AUTOMATED) 2022-05-14 13:16:00 Gino Rico [facility] MAGNESIUM 2022-05-14 07:30:00 Jasen Lee [facility] BASIC METABOLIC PANEL (NA, K, CL, CO2, GLUCOSE, BUN, CREATININE, CA) 2022-05-14 07:30:00 Jasen Lee [facility] CBC WITH DIFF 2022-05-14 07:30:00 Jasen Lee [facility] ACTIVATED PARTIAL THRMPLAS MILKA 2022-05-14 07:30:00 Gino Rico [facility] N-TERMINAL PRO-BNP 2022-05-14 07:30:00 Bruce Glover [facility] HOME HEALTH - OTHER 2022-05-14 05:01:00 Doctor Unassigned, [place] [facility] POCT GLUCOSE (AUTOMATED) 2022-05-14 00:36:00 Gino Rico [facility] ACTIVATED PARTIAL THRMPLAS MILKA 2022-05-13 21:22:00 Bruce Glover [facility] POCT GLUCOSE (AUTOMATED) 2022-05-13 21:22:00 Gino Rico [facility] POCT GLUCOSE (AUTOMATED) 2022-05-13 17:25:00 Gino Rico [facility] TRANSTHORACIC ECHO (TTE) COMPLETE W/ CONTRAST 2022-05-13 16:40:00 Alireza Ugarte [facility] ACTIVATED PARTIAL THRMPLAS MILKA 2022-05-13 14:50:00 Gino Rico [facility] POCT GLUCOSE (AUTOMATED) 2022-05-13 13:15:00 Gino Rico [facility] HB ECG ROUTINE & RHYTHM STRIP 2022-05-13 12:33:54 [facility] MAGNESIUM 2022-05-13 09:06:00 Jasen Lee [facility] BASIC METABOLIC PANEL (NA, K, CL, CO2, GLUCOSE, BUN, CREATININE, CA) 2022-05-13 09:06:00 Jasen Lee [facility] TROPONIN I 2022-05-13 02:37:00 Prema Solo [facility] ACTIVATED PARTIAL THRMPLAS MILKA 2022-05-13 02:37:00 Gino Rico [facility] POCT GLUCOSE (AUTOMATED) 2022-05-13 02:36:00 Gino Rico [facility] TROPONIN I 2022-05-12 22:13:00 [facility] POCT GLUCOSE (AUTOMATED) 2022-05-12 20:14:00 Gino Rico [facility] TROPONIN I 2022-05-12 19:24:00 Belen [facility] ACTIVATED PARTIAL THRMPLAS MILKA 2022-05-12 19:24:00 Belen [facility] POCT GLUCOSE (AUTOMATED) 2022-05-12 17:16:00 Gino Rico [facility] URIC ACID 2022-05-12 13:19:00 Belen [facility] TROPONIN I 2022-05-12 13:19:00 Belen [facility] BASIC METABOLIC PANEL (NA, K, CL, CO2, GLUCOSE, BUN, CREATININE, CA) 2022-05-12 13:19:00 Belen [facility] ACTIVATED PARTIAL THRMPLAS MILKA 2022-05-12 13:07:00 Belen [facility] POCT GLUCOSE (AUTOMATED) 2022-05-12 13:06:00 Gino Rico [facility] HB ECG ROUTINE & RHYTHM STRIP 2022-05-12 12:54:00 Belen [facility] MAGNESIUM 2022-05-12 11:07:00 Belen [facility] BASIC METABOLIC PANEL (NA, K, CL, CO2, GLUCOSE, BUN, CREATININE, CA) 2022-05-12 11:07:00 Movva, [facility] ACTIVATED PARTIAL THRMPLAS MILKA 2022-05-12 01:15:00 Belen, [facility] POCT GLUCOSE (AUTOMATED) 2022-05-12 01:00:00 Gino Rico [facility] TROPONIN I 2022-05-11 21:17:00 Belen [facility] POCT GLUCOSE (AUTOMATED) 2022-05-11 21:13:00 Gino Rico [facility] POCT GLUCOSE (AUTOMATED) 2022-05-11 17:58:00 Gino Rico [facility] HB ECG ROUTINE & RHYTHM STRIP 2022-05-11 17:33:51 Movdoni [facility] CREATININE, URINE RANDOM 2022-05-11 16:48:00 Movdoni, [facility] UREA NITROGEN, URINE RANDOM 2022-05-11 16:48:00 Movva, [facility] SODIUM, URINE RANDOM 2022-05-11 16:48:00 Movva, [facility] TROPONIN I 2022-05-11 16:45:00 Movdoni [facility] PROTHROMBIN TIME / INR 2022-05-11 16:45:00 Movva, [facility] ACTIVATED PARTIAL THRMPLAS MILKA 2022-05-11 16:45:00 Movva [facility] LACTIC ACID WHOLE BLOOD 2022-05-11 16:45:00 Movva [facility] POCT GLUCOSE (AUTOMATED) 2022-05-11 14:54:00 Hallie Greenberg [facility] CT HEAD WO CONTRAST 2022-05-11 08:39:03 Prieto Olivares [facility] XR CHEST 1 VW 2022-05-11 08:37:00 Prieto Olivares [facility] MAGNESIUM 2022-05-11 08:13:00 Belen [facility] FERRITIN SERUM 2022-05-11 08:13:00 Movva [facility] TROPONIN I 2022-05-11 08:13:00 Prieto Olivares [facility] COMP. METABOLIC PANEL ([id number]) 2022-05-11 08:13:00 Prieto Olivares [facility] IRON PANEL 2022-05-11 08:13:00 Bruce Glover [facility] CBC WITH DIFF 2022-05-11 08:13:00 Prieto Olivares [facility] N-TERMINAL PRO-BNP 2022-05-11 08:13:00 Prieto Olivares [facility] HB ECG ROUTINE & RHYTHM STRIP 2022-05-11 07:45:49 Prieto Olivares [facility] CONSENT/REFUSAL FOR DIAGNOSIS AND TREATMENT 2022-05-11 07:27:49 Doctor Unassigned, [place] [facility] HOSPITAL ADMISSION 2022-05-11 05:01:00 Doctor Unassigned, [place] [facility] URINALYSIS 2022-05-09 20:53:00 Singer [facility] TROPONIN I 2022-05-09 19:45:00 Singer [facility] COMP. METABOLIC PANEL ([id number]) 2022-05-09 19:45:00 Singer [facility] CBC WITH DIFF 2022-05-09 19:45:00 Singer [facility] RAPID INFLUENZA A/B 2022-05-09 19:45:00 Singer [facility] N-TERMINAL PRO-BNP 2022-05-09 19:45:00 Singer [facility] XR CHEST 1 VW 2022-05-09 19:43:40 Singer [facility] CONSENT/REFUSAL FOR DIAGNOSIS AND TREATMENT 2022-05-09 18:59:52 Doctor Unassigned, [place] [facility] MAGNESIUM 2022-05-06 09:13:00 Debby Pate Heidi [facility] TROPONIN I 2022-05-06 09:13:00 Debby Pate Heidi [facility] BASIC METABOLIC PANEL (NA, K, CL, CO2, GLUCOSE, BUN, CREATININE, CA) 2022-05-06 09:13:00 Debby Pate [facility] CBC WITH DIFF 2022-05-06 09:13:00 Debby Pate [facility] TROPONIN I 2022-05-06 03:01:00 Debby Pate Heidi [facility] EKG-12 LEAD 2022-05-05 22:35:34 Tomas Mcguire [facility] URINALYSIS 2022-05-05 20:37:00 Tomas Mcguire [facility] MAGNESIUM 2022-05-05 19:55:00 Tomas Mcguire [facility] TROPONIN I 2022-05-05 19:55:00 Tomas Mcguire [facility] THYROID STIMULATING HORMONE 2022-05-05 19:55:00 Davon Debby [facility] COMP. METABOLIC PANEL ([id number]) 2022-05-05 19:55:00 Tomas Mcguire [facility] CBC WITH DIFF 2022-05-05 19:55:00 Tomas Mcguire [facility] GLYCOSYLATED HEMOGLOBIN (A1C) 2022-05-05 19:55:00 Debby Pate [facility] N-TERMINAL PRO-BNP 2022-05-05 19:55:00 Tomas Mcguire [facility] XR CHEST 1 VW 2022-05-05 19:41:28 Tomas Mcguire [facility] MAGNESIUM 2022-04-30 10:01:00 Isela [facility] BASIC METABOLIC PANEL (NA, K, CL, CO2, GLUCOSE, BUN, CREATININE, CA) 2022-04-30 10:01:00 Isela [facility] N-TERMINAL PRO-BNP 2022-04-30 10:01:00 Isela [facility] POCT GLUCOSE (AUTOMATED) 2022-04-30 01:12:00 Isela [facility] POCT GLUCOSE (AUTOMATED) 2022-04-29 22:29:00 Isela [facility] EKG-12 LEAD 2022-04-29 19:06:39 Denis Knox [facility] COMP. METABOLIC PANEL ([id number]) 2022-04-29 16:58:00 [facility]-29 16:16[facility]00 [facility] 2022-04-29 16:16:00 [facility] 2022-04-29 16:16:00 [facility]W 2022-04-29 15:54:35 [facility] WITH DIFF 2022-04-29 15:37:00 [facility] PROT[facility] / INR 2022-04-29 15:37:00 Abilio [facility] COVID-19 (ID NOW RAPID TESTING) 2022-04-29 15:37:00 Denis Knox [facility] HOME HEALTH - OTHER 2022-04-29 05:01:00 Doctor Unassigned, [place] [facility] TROPONIN I 2022-04-23 15:40:00 Vanita ambreen [facility] MAGNESIUM 2022-04-23 09:35:00 Autumn [facility] TROPONIN I 2022-04-23 09:35:00 Vanita [facility] BASIC METABOLIC PANEL (NA, K, CL, CO2, GLUCOSE, BUN, CREATININE, CA) 2022-04-23 09:35:00 Criss Leyva [facility] CBC WITH DIFF 2022-04-23 09:35:00 Criss Leyva [facility] TROPONIN I 2022-04-22 16:29:00 Singer [facility] COMP. METABOLIC PANEL ([id number]) 2022-04-22 15:26:00 Singer Pia [facility] XR CHEST 1 VW 2022-04-22 14:09:51 Singer [facility] TROPONIN I 2022-04-22 13:59:00 Singer [facility] CBC WITH DIFF 2022-04-22 13:59:00 Singer [facility] N-TERMINAL PRO-BNP 2022-04-22 13:59:00 Pia Watts [facility] HB ECG ROUTINE & RHYTHM STRIP 2022-04-22 13:51:27 Pia Watts [facility] CONSENT/REFUSAL FOR DIAGNOSIS AND TREATMENT 2022-04-17 12:16:10 Doctor Unassigned, [place] [facility] TROPONIN I 2022-04-15 19:05:00 Joseph Quinones [facility] BASIC METABOLIC PANEL (NA, K, CL, CO2, GLUCOSE, BUN, CREATININE, CA) 2022-04-15 19:05:00 Joseph Quinones [facility] CBC WITH DIFF 2022-04-15 19:05:00 [facility] N-TERMINAL PRO-BNP 2022-04-15 19:05:00 [facility] CONSENT/REFUSAL FOR DIAGNOSIS AND TREATMENT 2022-04-15 18:34:25 Doctor Unassigned, [place] [facility] HEALTH - OTHER 2022-04-09 05:01:00 Doctor Unassigned, [place] [facility] HEALTH 485 2022-03-12 05:01:00 Doctor Unassigned, [place] [facility] HIV 1/2 AG-AB WITH REFLEX 2022-02-15 08:11:00 Joshua Syed [facility] [id number] 2021-03-01 00:00:[facility] [place] [id number] 2021-03-01 00:00:00 [facility] [place] [id number] 2021-01-03 00:00:00 [facility] [id number] 2020-12-04 00:00:00 [facility] [id number] 2020-12-04 00:00:00 [facility] MICROALBUMIN URINE 2020-10-11 17:22:00 Maria E Fischer [facility] Magnesium Level [facility] Phosphorus Level [facility] Complete Blood Count w/Diff and Platelet [facility] PT and PTT [facility] Non-Invasive Ventilator - Me morial [facility] Comprehensive metabolic panel [facility] Plan of Care Planned Activity Planned Date Details Comments Source Procedure 2024-10-31 00:00:00 POCT Glucose Mem orial Ang Epic Encounters Start Date/Time End Date/Time Encounter Type Admission Type Attending Clinicians Care Facility Care Department Encounter ID Source 2024-09-30 21:33:00 Inpatient Emergency MILAN VALVERDE RENEE [facility] General Medicine [id number] 1 [facility] 2022-06-04 12:56:19 Outpatient SEBLE SANDERSON [facility] [id number] [facility] 2021-06-04 08:19:20 Emergency [facility] [id number] [facility] 2021-06-04 07:09:20 Emergency [facility] [id number] [facility] 2021-06-04 03:59:42 Emergency [facility] [id number] [facility] 2021-06-04 02:43:50 Emergency [facility] [id number] [facility] 2021-06-03 23:52:27 Emergency [facility] [id number] [facility] 2021-06-03 14:16:29 Emergency [facility] [id number] [facility] 2021-06-03 10:28:47 Emergency [facility] [id number] [facility] 2021-06-03 10:04:22 Emergency [facility] [id number] [facility] 2021-06-03 09:15:54 Emergency [facility] [id number] [facility] 2021-06-03 02:12:32 Emergency [facility] [id number] [facility] 2021-06-02 22:26:27 Emergency [facility] [id number] [facility] 2021-06-02 22:18:01 Emergency [facility] [id number] [facility] 2021-06-02 21:45:53 Emergency [facility] [id number] [facility] 2021-06-02 18:24:09 Emergency [facility] [id number] [facility] 2021-06-02 15:33:14 Emergency [facility] [id number] [facility] 2021-06-02 13:53:03 Emergency [facility] [id number] [facility] 2021-06-02 11:21:12 [facility] [id number] [facility] 2021-06-02 07:19:21 [facility] [id number] [facility] 2021-06-02 02:28:47 [facility] [id number] [facility] 2021-06-02 00:03:36 [facility] [id number] [facility] 2021-06-01 18:26:39 Emergency [facility] [id number] [facility] 2021-06-01 16:19:54 Emergency [facility] [id number] [facility] [place] 2021-06-01 07:53:57 Emergency [facility] [id number] [facility] [place] 2021-05-31 22:36:25 Emergency [facility] [id number] [facility] 2021-05-31 19:41:41 Emergency [facility] [id number] [facility] 2021-05-31 10:37:26 Emergency [facility] [id number] [facility] 2021-05-31 04:43:40 Emergency [facility] [id number] [facility] 2021-05-30 23:56:43 Emergency [facility] [id number] [facility] [place] 2021-05-30 21:10:05 Emergency [facility] [id number] [facility] 2021-05-30 16:21:58 Emergency [facility] [id number] [facility] [place] 2021-05-30 14:28:28 Emergency [facility] [id number] [facility] 2021-05-30 11:04:08 Emergency [facility] [id number] [facility] 2024-10-18 10:00:00 2024-10-18 10:00:00 Outpatient R DAVID LADD [facility] [id number] [facility] 2024-10-12 07:15:00 2024-10-14 15:12:00 Inpatient X BJ WEISS [facility] JOANA [id number] [facility] 2024-10-08 11:05:00 2024-10-08 14:06:00 Emergency X JORGE YAÑEZ [facility] ERT [id number] [facility] 2024-10-07 09:59:00 2024-10-07 14:13:00 Emergency X OTILIOJORGE Yeboah [facility] ERT [id number] [facility] 2024-10-07 00:00:00 2024-10-07 08:39:16 Referral Triage Milan Burns, Milan Dodd [facility] [place] [facility] ..840.114 350.1.13.70 8.2.7.2.686 [id number] [facility] 2024-10-06 10:00:00 2024-10-06 09:38:23 Outpatient R DAVID LADD [facility] [id number] [facility] 2024-10-05 00:00:00 2024-10-05 11:55:33 Telephone Davdi Ladd [facility] ..840.114 350.1.13.10 4.2.7.2.686 [id number] [facility] 2024-10-04 16:36:00 2024-10-04 20:25:00 Emergency Pia Watts Erin Laura [facility] ..840.114 350.1.13.10 4.2.7.2.686 [id number] [facility] 2024-10-04 16:00:00 2024-10-04 16:36:55 Outpatient R BROOKS BARKER OGECHUKWU [facility] ERT [id number] [facility] 2024-10-04 16:00:00 2024-10-04 16:36:55 Office Visit Brooks Barker [facility] 1.2.840.114 350.1.13.10 4.2.7.2.686 [id number] [facility] 2024-10-04 16:00:00 2024-10-04 16:00:00 Outpatient R BROOKS BARKER OGECHUKWU [facility] [id number] [facility] 2024-09-30 21:33:00 2024-10-03 15:30:00 Hospital Encounter Mary, Deena Mcgill, Jose Vogt, Stewart Valverde, Milan Simpson, Prema Mcfarland, Jose Engle, Criss Dodd, Marion Dodd, Michael Dodd [facility] [place] [facility] 1..840.114 350.1.13.70 8.2.7.2.686 [id number] [facility] 2024-09-30 21:33:00 2024-10-03 15:30:00 Inpatient Emergency MICHAEL DODD [facility] Cardiology [id number] [facility] 2024-09-29 15:30:00 2024-09-29 15:30:00 Office Visit David Ladd [facility] 1.2.840.114 350.1.13.10 4.2.7.2.686 [id number] [facility] 2024-09-29 14:45:00 2024-09-29 15:00:00 Business Solutions Analyst Visit 2, Adc Lab David Ladd 2, Adc Lab [facility] BU[facility] 1..840.114 350.1.13.10 4.2.7.2.686 [id number] [facility] 2024-09-29 14:20:00 2024-09-29 14:40:00 Office Visit [facility] 1..840.114 350.1.13.10 4.2.7.2.686 [id number] [facility] 2024-09-29 15:30:00 2024-09-29 14:28:57 Outpatient R DAVID LADD [facility] [id number] [facility] 2024-09-23 11:30:00 2024-09-23 12:00:00 Case Management Alexander, [facility] Munoz Cardiomem Interp [facility] 1..840.114 350.1.13.10 4.2.7.2.686 [id number] [facility] 2024-09-23 11:30:00 2024-09-23 11:30:00 Outpatient R DONOVAN BILLINGSLEY [facility] [id number] [facility] 2024-09-21 00:00:00 2024-09-21 14:13:24 Transition of Care Flip Zavala Michele [address] 1..840.114 350.1.13.10 4.2.7.2.686 [id number] [facility] 2024-09-19 10:43:00 2024-09-20 16:55:00 Outpatient X BJ WEISS [facility] [id number] [facility] 2024-09-19 10:43:00 2024-09-20 16:55:00 Emergency Evon Frances Jelani [facility] 1.2.840.114 350.1.13.10 4.2.7.2.686 [id number] [facility] 2024-09-19 00:00:00 2024-09-19 15:21:27 Telephone David Ladd Jairo.H. [facility] NAL [facility]ILD[facility] 1.2.840.114 350.1.13.10 4.2.7.2.686 [id number] [facility] 2024-09-19 00:00:00 2024-09-19 10:08:06 Telephone Ladd, [employer] [facility] 1.2.840.114 350.1.13.10 4.2.7.2.686 [id number] [facility] 2024-09-18 14:29:00 2024-09-18 18:06:00 Emergency X JOSEPH QUINONES [facility] ERT [id number] [facility] 2024-09-18 14:29:00 2024-09-18 18:06:00 Emergency Joseph Quinones [facility] 1.2.840.114 350.1.13.10 4.2.7.2.686 [id number] [facility] 2024-06-02 00:00:00 2024-09-17 06:42:53 Orders Only Alea Arellano [facility] 1.2.840.114 350.1.13.10 4.2.7.2.686 [id number] [facility] 2024-07-13 00:00:00 2024-09-17 06:29:45 Orders Only Delicia Shaffer 1.2.840.1 50749.1.1 3.104.2.7 .3.156151 .8 [id number] [facility] 2024-09-01 00:00:00 2024-09-17 06:13:07 Orders Only Barry Arellanorichard kimberly 1.2.840.1 16193.1.1 3.104.2.7 .3.818716 .8 [id number] [facility] 2024-09-01 00:00:00 2024-09-17 06:12:36 Orders Only Sally Arellanojewels kimberly 1.2.840.1 18340.1.1 3.104.2.7 .3.365642 .8 [id number] [facility] 2021-11-21 00:00:00 2024-09-17 02:48:57 Orders Only Abbie Mccall Farin B [facility] 1.2.840.114 350.1.13.10 4.2.7.2.686 [id number] [facility] 2023-11-06 00:00:00 2024-09-17 02:26:59 Orders Only Doctor Unassigned, [place] Doctor Unassigned, [place] [facility] ([facility]) 1.2.840.114 350.1.13.10 4.2.7.2.686 [id number] [facility] 2023-11-17 00:00:00 2024-09-17 02:19:04 Orders Only Doctor Unassigned, [place] Doctor Unassigned, [place] [facility] ([facility]) 1.2.840.114 350.1.13.10 4.2.7.2.686 [id number] [facility] 2024-09-02 00:00:00 2024-09-02 16:15:46 Brooks Izaguirre 1.2.840.1 39964.1.1 3.104.2.7 .3.729910 .8 [id number] [facility] 2024-09-02 00:00:00 2024-09-02 08:49:10 Case Management Jorge Heath 1.2.840.1 11193.1.1 3.104.2.7 .3.308212 .8 [id number] [facility] 2024-09-01 01:55:00 2024-09-01 23:59:00 Outpatient ALEA FLORES CHOCKALINGA M [facility] [id number] [facility] 2024-09-01 01:55:00 2024-09-01 23:59:00 Hospital Encounter Alea Arellano 1..840.1 46771.1.1 3.104.2.7 .3.724517 .8 [id number] [facility] 2024-09-01 00:00:00 2024-09-01 00:00:00 Outpatient ALEA FLORES CHOCKALINGA M [facility] [id number] [facility] 2024-08-30 11:30:00 2024-08-30 11:30:00 Outpatient KIM GUPTA [facility] [id number] [facility] 2024-08-26 15:30:00 2024-08-26 15:30:00 Office Visit Brooks Barker 1.2.840.1 16523.1.1 3.104.2.7 .3.729570 .8 [id number] [facility] 2024-08-26 00:00:00 2024-08-26 15:06:01 Patient Outreach Rosa Maria Montiel 1.2.840.1 91141.1.1 3.104.2.7 .3.937831 .8 [id number] [facility] 2024-08-26 00:00:00 2024-08-26 14:47:15 Patient Outreach Adilene Petersen 1.2.840.1 76792.1.1 3.104.2.7 .3.695229 .8 [id number] [facility] 2024-08-26 15:30:00 2024-08-26 14:41:46 Outpatient R BROOKS BARKER OGECHUKWU [facility] [id number] [facility] 2024-08-26 00:00:00 2024-08-26 00:00:00 Travel 1.2.840.1 55099.1.1 3.104.2.7 .3.694173 .8 1.2.840.114 350.1.13.10 4.2.7.3.698 084.8 [id number] [facility] 2024-08-23 00:00:00 2024-08-23 11:46:22 Patient Outreach Adilene Petersen 1.2.840.1 50586.1.1 3.104.2.7 .3.781136 .8 [id number] [facility] 2024-08-23 00:00:00 2024-08-23 10:51:01 Transition of Care Flip Zavala 1.2.840.1 97644.1.1 3.104.2.7 .3.962847 .8 [id number] [facility] 2024-08-18 19:10:00 2024-08-19 14:30:00 Outpatient X CRISS LEYVA [facility] [id number] [facility] 2024-08-18 19:10:00 2024-08-19 14:30:00 Emergency [place], Yared Cornell David 1.2.840.1 02749.1.1 3.104.2.7 .3.111379 .8 [id number] [facility] 2024-08-19 11:30:00 2024-08-19 12:00:00 Case Management Donovan Billingsley, Cardiomem Interp 1.2.840.1 44242.1.1 3.104.2.7 .3.876594 .8 [id number] [facility] 2024-08-19 11:30:00 2024-08-19 11:30:00 Outpatient R DONOVAN BILLINGSLEY [facility] [id number] [facility] 2024-08-18 00:00:00 2024-08-18 15:38:25 David Rodriguez 1.2.840.1 52853.1.1 3.104.2.7 .3.032271 .8 [id number] [facility] 2024-08-18 00:00:00 2024-08-18 00:00:00 Travel 1.2.840.1 09151.1.1 3.104.2.7 .3.551489 .8 1.2.840.114 350.1.13.10 4.2.7.3.698 084.8 [id number] [facility] 2024-08-17 00:00:00 2024-08-17 14:41:32 Patient Outreach dAilene Petersen 1.2.840.1 98266.1.1 3.104.2.7 .3.333000 .8 [id number] [facility] 2024-08-16 00:00:00 2024-08-16 16:48:56 Transition of Care Ayan Dodd 1.2.840.1 25280.1.1 3.104.2.7 .3.727183 .8 [id number] [facility] 2024-08-15 00:00:00 2024-08-15 16:52:59 Patient Outreach Adilene Petersen 1.2.840.1 71749.1.1 3.104.2.7 .3.586215 .8 [id number] [facility] 2024-08-09 11:40:00 2024-08-15 16:48:00 Inpatient X CHRISTOPHER, TAMERA WHITE, [facility] [id number] [facility] 2024-08-09 11:40:00 2024-08-15 16:48:00 Hospital Encounter Michelle Miranda, Criss Ma, GeoTamera Jha 1.2.840.1 53156.1.1 3.104.2.7 .3.137315 .8 [id number] [facility] 2024-08-15 00:00:00 2024-08-15 16:16:55 Patient Outreach Adilene Petersen 1.2.840.1 17379.1.1 3.104.2.7 .3.568205 .8 [id number] [facility] 2024-08-15 15:00:00 2024-08-15 15:00:00 Outpatient R BROOKS BARKER OGECHUKWU [facility] [id number] [facility] 2024-08-12 19:03:00 2024-08-12 21:00:00 Anesthesia Event Sathya-Garret Ballard Micah 1.2.840.1 08156.1.1 3.104.2.7 .3.737674 .8 [id number] [facility] 2024-08-12 14:00:00 2024-08-12 17:00:00 Surgery Akhil Barriga 1.2.840.1 72384.1.1 3.104.2.7 .3.791016 .8 [id number] [facility] 2024-08-11 14:00:00 2024-08-11 14:00:00 Outpatient R ALEA ARELLANO CHOCKALINGA M [facility] [id number] [facility] 2024-08-11 14:00:00 2024-08-11 14:00:00 Hospital Encounter Alea Arellano 1.2.840.1 94315.1.1 3.104.2.7 .3.325570 .8 [id number] [facility] 2024-08-09 00:00:00 2024-08-09 00:00:00 Travel 1.2.840.1 63010.1.1 3.104.2.7 .3.612837 .8 1.2.840.114 350.1.13.10 4.2.7.3.698 084.8 [id number] [facility] 2024-08-02 00:00:00 2024-08-02 11:59:52 Transition of Care Flip Zavala 1.2.840.1 79323.1.1 3.104.2.7 .3.630000 .8 [id number] [facility] 2024-07-31 13:49:00 2024-08-01 19:48:00 Outpatient X TIO PEREZ [facility] [id number] [facility] 2024-07-31 13:49:00 2024-08-01 19:48:00 Emergency Soni Soliman Amer 1.2.840.1 77306.1.1 3.104.2.7 .3.792710 .8 [id number] [facility] 2024-07-31 00:00:00 2024-07-31 00:00:00 Travel 1.2.840.1 90446.1.1 3.104.2.7 .3.416711 .8 1.2.840.114 350.1.13.10 4.2.7.3.698 084.8 [id number] [facility] 2024-07-28 14:25:00 2024-07-28 15:22:00 Emergency X MARY REYNAGA [facility] [id number] [facility] 2024-07-28 14:25:00 2024-07-28 15:22:00 Emergency Mary Reynaga 1.2.840.1 03963.1.1 3.104.2.7 .3.219571 .8 [id number] [facility] 2024-07-28 00:00:00 2024-07-28 14:19:54 Telephone David Ladd 1.2.840.1 64604.1.1 3.104.2.7 .3.530291 .8 [id number] [facility] 2024-07-28 00:00:00 2024-07-28 00:00:00 Travel 1.2.840.1 84273.1.1 3.104.2.7 .3.118109 .8 1.2.840.114 350.1.13.10 4.2.7.3.698 084.8 [id number] [facility] 2024-07-25 10:00:00 2024-07-25 10:00:00 Outpatient R JONATHAN ZAPATA [facility] [id number] [facility] 2024-07-22 00:00:00 2024-07-22 14:10:04 Transition of Care Josef Ayan Miller 1.2.840.1 60788.1.1 3.104.2.7 .3.984166 .8 [id number] [facility] 2024-07-13 11:51:00 2024-07-21 17:10:00 Inpatient X GINO RICO [facility] [id number] [facility] 2024-07-13 11:51:00 2024-07-21 17:10:00 Hospital Encounter Jairo Jordan Khaled F 1.2.840.1 21403.1.1 3.104.2.7 .3.427631 .8 [id number] [facility] 2024-07-19 17:48:00 2024-07-19 18:48:00 Surgery Vernon Weller 1.2.840.1 82377.1.1 3.104.2.7 .3.879046 .8 [id number] [facility] 2024-07-18 17:40:00 2024-07-18 17:40:00 Anesthesia Event Lorena Hendricks 1.2.840.1 35889.1.1 3.104.2.7 .3.822060 .8 [id number] [facility] 2024-07-18 09:50:00 2024-07-18 10:50:00 Surgery Alea Arellano 1.2.840.1 88019.1.1 3.104.2.7 .3.055908 .8 [id number] [facility] 2024-07-15 00:00:00 2024-07-15 15:20:15 Patient Outreach Adilene Petersen 1.2.840.1 95256.1.1 3.104.2.7 .3.271303 .8 [id number] [facility] 2024-07-15 10:00:00 2024-07-15 10:30:00 Case Management Gino Rico, Cardiomem Interp 1.2.840.1 88935.1.1 3.104.2.7 .3.753669 .8 [id number] [facility] 2024-07-13 11:00:00 2024-07-13 11:51:13 Office Visit David Ladd 1.2.840.1 21662.1.1 3.104.2.7 .3.431970 .8 [id number] [facility] 2024-07-13 11:30:00 2024-07-13 11:30:00 Office Visit Brooks Barker 1.2.840.1 51704.1.1 3.104.2.7 .3.060534 .8 [id number] [facility] 2024-07-13 10:45:00 2024-07-13 11:03:53 Business Solutions Analyst Visit Brooks Barker 2, Adc Lab 1.2.840.1 96377.1.1 3.104.2.7 .3.395941 .8 [id number] [facility] 2024-07-13 11:30:00 2024-07-13 10:44:05 Outpatient R BROOKS BARKER OGECHUKWU [facility] [id number] [facility] 2024-07-13 00:00:00 2024-07-13 00:00:00 Travel 1.2.840.1 90501.1.1 3.104.2.7 .3.066333 .8 1.2.840.114 350.1.13.10 4.2.7.3.698 084.8 [id number] [facility] 2024-07-06 00:00:00 2024-07-06 16:12:06 Transition of Care Juan M Zavalaele Orlin 1.2.840.1 33657.1.1 3.104.2.7 .3.970463 .8 [id number] [facility] 2024-07-06 15:00:00 2024-07-06 15:00:00 Outpatient REBECCA CAM [facility] [id number] [facility] 2024-07-03 15:16:00 2024-07-04 12:10:00 Outpatient BJ PLASCENCIA [facility] [id number] [facility] 2024-07-03 15:16:00 2024-07-04 12:10:00 Emergency Michelle Miranda Jelani 1.2.840.1 83049.1.1 3.104.2.7 .3.776837 .8 [id number] [facility] 2024-07-03 00:00:00 2024-07-03 00:00:00 Travel 1.2.840.1 95644.1.1 3.104.2.7 .3.356620 .8 1.2.840.114 350.1.13.10 4.2.7.3.698 084.8 [id number] [facility] 2024-06-27 10:30:00 2024-06-27 10:30:00 Outpatient R DAVID LADD [facility] [id number] [facility] 2024-06-23 14:45:00 2024-06-23 14:45:00 Outpatient R TONYA KAYLEECHRISTIAN [facility] [id number] [facility] 2024-06-22 00:00:00 2024-06-22 13:45:52 Telephone Brooks Barker 1.2.840.1 20735.1.1 3.104.2.7 .3.395454 .8 [id number] [facility] 2024-06-21 00:00:00 2024-06-21 14:59:48 Telephone David Ladd 1.2.840.1 45465.1.1 3.104.2.7 .3.625826 .8 [id number] [facility] 2024-06-21 00:00:00 2024-06-21 14:24:10 Case Management Jorge Heath 1.2.840.1 78747.1.1 3.104.2.7 .3.650379 .8 [id number] [facility] 2024-06-20 11:15:00 2024-06-20 11:15:00 Business Solutions Analyst Visit Brooks Barker 2, Adc Lab 1.2.840.1 73177.1.1 3.104.2.7 .3.850878 .8 [id number] [facility] 2024-06-20 10:00:00 2024-06-20 10:25:15 Outpatient R BROOKS BARKER OGECHUKWU [facility] [id number] [facility] 2024-06-20 10:00:00 2024-06-20 10:25:15 Office Visit Brooks Barker 1.2.840.1 54215.1.1 3.104.2.7 .3.110382 .8 [id number] [facility] 2024-06-20 00:00:00 2024-06-20 00:00:00 Travel 1.2.840.1 97637.1.1 3.104.2.7 .3.947613 .8 1.2.840.114 350.1.13.10 4.2.7.3.698 084.8 [id number] [facility] 2024-06-10 10:30:00 2024-06-10 11:00:00 Case Management Kim Pate Cardiomekimberly Interp 1.2.840.1 96272.1.1 3.104.2.7 .3.119367 .8 [id number] [facility] 2024-06-10 10:30:00 2024-06-10 10:30:00 Outpatient R KIM PATE [facility] [id number] [facility] 2024-06-06 00:00:00 2024-06-06 13:33:41 Telephone Brooks Barker 1.2.840.1 40345.1.1 3.104.2.7 .3.695437 .8 [id number] [facility] 2024-06-02 01:50:00 2024-06-02 23:59:00 Outpatient R ALEA ARELLANO CHOCKALINGA M [facility] [id number] [facility] 2024-06-02 01:50:00 2024-06-02 23:59:00 Hospital Encounter Alea Arellano 1.2.840.1 65783.1.1 3.104.2.7 .3.404693 .8 [id number] [facility] 2024-06-02 09:00:00 2024-06-02 09:00:00 Outpatient R [facility] [id number] [facility] 2024-06-01 10:30:00 2024-06-01 10:30:00 Office Visit David Ladd 1.2.840.1 89114.1.1 3.104.2.7 .3.695937 .8 [id number] [facility] 2024-06-01 10:30:00 2024-06-01 10:02:21 Outpatient R DAVID LADD [facility] [id number] [facility] 2024-06-01 00:00:00 2024-06-01 00:00:00 Travel 1.2.840.1 88350.1.1 3.104.2.7 .3.009148 .8 1.2.840.114 350.1.13.10 4.2.7.3.698 084.8 [id number] [facility] 2024-05-25 15:00:00 2024-05-25 15:00:00 Outpatient R JEANNA KAMARA LAUREN [facility] [id number] [facility] 2024-05-20 14:00:00 2024-05-20 15:00:36 Outpatient R BROOKS BARKER OGECHUKWU [facility] [id number] [facility] 2024-05-20 14:00:00 2024-05-20 15:00:36 Office Visit Brooks Barker 1.2.840.1 07817.1.1 3.104.2.7 .3.470863 .8 [id number] [facility] 2024-05-20 00:00:00 2024-05-20 00:00:00 Travel 1.2.840.1 77705.1.1 3.104.2.7 .3.460828 .8 1.2.840.114 350.1.13.10 4.2.7.3.698 084.8 [id number] [facility] 2024-05-18 00:00:00 2024-05-18 12:34:32 Transition of Care Flip Zavala 1.2.840.1 13540.1.1 3.104.2.7 .3.024819 .8 [id number] [facility] 2024-05-15 00:12:00 2024-05-17 18:00:00 Inpatient X YARED LARIOS [facility] JOANA [id number] [facility] 2024-05-15 00:12:00 2024-05-17 18:00:00 Hospital Encounter Pia Watts Mohammad A. 1.2.840.1 95543.1.1 3.104.2.7 .3.089176 .8 [id number] [facility] 2024-05-15 00:00:00 2024-05-15 00:00:00 Travel 1.2.840.1 71331.1.1 3.104.2.7 .3.150435 .8 1.2.840.114 350.1.13.10 4.2.7.3.698 084.8 [id number] [facility] 2024-05-05 00:00:00 2024-05-06 15:13:04 [facility] 1.2.840.114 350.1.13.10 4.2.7.2.686 [id number] [facility] 2024-05-06 12:00:00 2024-05-06 12:30:00 Case Management Alexander, [facility] Donovan Billingsley Alexander, [facility]p [facility] 1.2.840.114 350.1.13.10 4.2.7.2.686 [id number] [facility] 2024-05-06 12:00:00 2024-05-06 12:00:00 Outpatient R DONOVAN BILLINGSLEY [facility] [id number] [facility] 2024-04-28 08:00:52 2024-04-28 23:59:00 [id number] 2024-04-28 08:00:52 2024-04-28 23:59:00 Hospital Encounter Ladd David JairoTejNoreenTej [facility] BUILD[facility] 1.2.840.114 350.1.13.10 4.2.7.2.686 [id number] [facility] 2024-04-25 11:30:00 2024-04-25 11:30:00 Office Visit David LaddNoreenTej [facility] NAL BUILDING 1.2.840.114 350.1.13.10 4.2.7.2.686 [id number] [facility] 2024-04-25 11:30:00 2024-04-25 10:56:30 Outpatient R ANA LADDDANE [facility] [id number] [facility] 2024-04-18 00:00:00 2024-04-20 13:08:56 Brooks Izaguirre [facility] BU[facility] 1.2.840.114 350.1.13.10 4.2.7.2.686 [id number] [facility] 2024-04-19 10:00:00 2024-04-19 10:30:00 Office [facility] 1.2.840.114 350.1.13.10 4.2.7.2.686 [id number] [facility] 2024-04-19 10:00:00 2024-04-19 10:00:00 Outpatient R DEYSI BONE SELENA [facility] [id number] [facility] 2024-04-18 00:00:00 2024-04-19 08:42:53 Telephone Joie Barkeraris [facility] NAL BUILDING 1.2.840.114 350.1.13.10 4.2.7.2.686 [id number] [facility] 2024-04-18 00:00:00 2024-04-18 17:24:59 Refill Joie Barkerdonnieveronique [facility] N[facility] 1.2.840.114 350.1.13.10 4.2.7.2.686 [id number] [facility] 2024-04-18 13:00:00 2024-04-18 13:00:00 Outpatient R REBECCA MICHELE [facility] [id number] [facility] 2024-04-13 13:00:00 2024-04-13 13:00:00 Office Visit Brooks Barker [facility] PROFESSIO NAL BUILDING 1.2.840.114 350.1.13.10 4.2.7.2.686 [id number] [facility] 2024-04-13 12:00:00 2024-04-13 12:00:00 Office Visit Joie Barkerdonnieveronique [facility] PROFESSIO NAL BUILDING 1.2.840.114 350.1.13.10 4.2.7.2.686 [id number] [facility] 2024-04-13 13:00:00 2024-04-13 10:36:08 Outpatient R JOIE BARKERDonnieVeronique BARKER JOIEARIS [facility] [id number] [facility] 2024-04-07 00:00:00 2024-04-07 14:33:35 Transition of Care Flip Zavala Michele A ONEALMuriel SILVIA CEE 1..840.114 350.1.13.10 4.2.7.2.686 [id number] [facility] 2024-04-06 14:30:00 2024-04-06 14:30:00 Outpatient R BROOKS BARKER OGECHUKWU [facility] [id number] [facility] 2024-04-04 12:00:00 2024-04-06 12:17:00 Outpatient X BJ WEISS [facility] [id number] [facility] 2024-04-04 12:00:00 2024-04-06 12:17:00 Hospital Encounter [facility] 1.840.114 350.1.13.10 4.2.7.2.686 [id number] [facility] 2024-04-05 00:00:00 2024-04-05 16:22:38 Telephone Brooks Barker [facility] PROFESSIO NAL BUILDING 1..840.114 350.1.13.10 4.2.7.2.686 [id number] [facility] 2024-04-05 11:30:00 2024-04-05 11:30:00 Outpatient R DAVID LADD [facility] [id number] [facility] 2024-04-01 11:00:00 2024-04-01 11:30:00 Case Management Ellis Munoz Elizabeth [place], Cardiomem Interp [facility] MEDICAL OFFICE BUILDING 1..840.114 350.1.13.10 4.2.7.2.686 [id number] [facility] 2024-04-01 11:00:00 2024-04-01 11:00:00 Outpatient Paul PATE KIM [facility] [id number] [facility] 2024-03-24 09:00:00 2024-03-24 09:00:00 Outpatient R DAVID LADD [facility] [id number] [facility] 2024-03-22 00:00:00 2024-03-22 11:12:36 Telephone Brooks Barker [facility] PROFESSIO NAL BUILDING 1.2.840.114 350.1.13.10 4.2.7.2.686 [id number] [facility] 2024-03-10 16:00:00 2024-03-10 16:00:00 Outpatient R DEYSI BONELTE DEYSI [facility] [id number] [facility] 2024-03-04 19:39:00 2024-03-04 21:54:00 Emergency X ROELCURTIS BRODYJACQUI [facility] ERT [id number] [facility] 2024-03-04 19:39:00 2024-03-04 21:54:00 [facility] 1.2.840.114 350.1.13.10 4.2.7.2.686 [id number] [facility] 2024-02-26 10:30:00 2024-02-26 11:00:00 Case Management Ellis Munoz pierce [facility] MEDICAL OFFICE BUILDING 1.2.840.114 350.1.13.10 4.2.7.2.686 [id number] [facility] 2024-02-26 10:30:00 2024-02-26 10:30:00 Outpatient Paul BILLINGSLEY PIERCE [facility] [id number] [facility] 2024-02-25 00:00:00 2024-02-25 15:47:18 Telephone Brooks Barker [facility] BUILDING 1.2.840.114 350.1.13.10 4.2.7.2.686 [id number] [facility] 2024-02-25 00:00:00 2024-02-25 13:35:04 Telephone Brooks Barker [facility] BUILDING 1.2.840.114 350.1.13.10 4.2.7.2.686 [id number] [facility] 2024-02-25 00:00:00 2024-02-25 08:10:38 Telephone Brooks Barker [facility] BUILDING 1.2.840.114 350.1.13.10 4.2.7.2.686 [id number] [facility] 2024-02-03 00:00:00 2024-02-03 15:29:57 Telephone Brooks Barker [facility] BUILDING 1.2.840.114 350.1.13.10 4.2.7.2.686 [id number] [facility] 2024-01-29 11:00:00 2024-01-29 11:30:00 Case Management Alexander, Cardiomekimberly Interakash Billingsley pierce [facility] MEDICAL OFFICE BUILDING 1.2.840.114 350.1.13.10 4.2.7.2.686 [id number] [facility] 2024-01-29 11:00:00 2024-01-29 11:00:00 Outpatient R JOSE CRUZ [facility] [id number] [facility] 2024-01-18 00:00:00 2024-01-20 14:22:19 Telephone Brooks Barker [facility] BUILDING 1.2.840.114 350.1.13.10 4.2.7.2.686 [id number] [facility] 2020-08-23 00:00:00 2024-01-19 02:21:10 Mobile Device Encounter Debby Brown [facility] 1.2.840.114 350.1.13.10 4.2.7.2.686 [id number] [facility] 2024-01-13 00:00:00 2024-01-13 14:24:33 Case Management Leoncio Jorge [facility] BUILDING 1.2.840.114 350.1.13.10 4.2.7.2.686 [id number] [facility] 2024-01-13 00:00:00 2024-01-13 11:48:09 Telephone Brooks Barker [facility] BUILDING 1.2.840.114 350.1.13.10 4.2.7.2.686 [id number] [facility] 2024-01-06 14:45:00 2024-01-06 14:45:00 Outpatient R ROBERTO STOKES CRAIG [facility] [id number] [facility] 2024-01-05 14:00:00 2024-01-05 14:11:14 Outpatient R BROOKS BARKER OGECHUKWU [facility] [id number] [facility] 2024-01-05 14:00:00 2024-01-05 14:11:14 Office Visit Brooks Barker [facility] BUILDING 1.2.840.114 350.1.13.10 4.2.7.2.686 [id number] [facility] 2023-12-25 10:00:00 2023-12-25 10:00:00 Outpatient DAVID MATUTE [facility] [id number] [facility] 2023-12-18 13:30:00 2023-12-18 14:00:00 Case Management Ellis MunozDavid Ferguson [facility] MEDICAL [facility] BUILDING 1.2.840.114 350.1.13.10 4.2.7.2.686 [id number] [facility] 2023-12-18 13:30:00 2023-12-18 13:30:00 Outpatient R DAVID LADD [facility] [id number] [facility] 2023-11-25 00:00:00 2023-11-25 00:00:00 Outpatient R [facility] [id number] [facility] 2023-11-24 00:00:00 2023-11-24 00:00:00 Telephone David Ladd [facility] 1.2.840.114 350.1.13.10 4.2.7.2.686 [id number] [facility] 2023-11-23 00:00:00 2023-11-23 00:00:00 Telephone David Ladd [facility] 1.2.840.114 350.1.13.10 4.2.7.2.686 [id number] [facility] 2023-11-19 08:30:00 2023-11-19 08:30:00 Business Solutions Analyst Visit 2, Adc Lab David Ladd [facility] 1.2.840.114 350.1.13.10 4.2.7.2.686 [id number] [facility] 2023-11-19 08:30:00 2023-11-19 08:05:24 Outpatient R DAVID LADD [facility] [id number] [facility] 2023-11-18 14:30:00 2023-11-18 15:23:43 Outpatient R DAVID LADD [facility] [id number] [facility] 2023-11-18 14:30:00 2023-11-18 15:23:43 Office Visit David Ladd [facility] 1.2.840.114 350.1.13.10 4.2.7.2.686 [id number] [facility] 2023-11-13 16:30:00 2023-11-13 17:00:00 Case Management Alexander Cardiomem Interp Jose Cruz [facility] OFFICE BUILDING 1.2.840.114 350.1.13.10 4.2.7.2.686 [id number] [facility] 2023-11-13 16:30:00 2023-11-13 16:30:00 Outpatient R BILLINGSLEY, [facility] [id number] [facility] 2023-10-09 13:30:00 2023-10-09 13:30:00 Outpatient R JOSE CRUZ [facility] [id number] [facility] 2023-10-06 00:00:00 2023-10-06 00:00:00 Outpatient R [facility] [id number] [facility] 2023-09-04 09:00:00 2023-09-04 09:30:00 Case Management Ellis [facility] 1.2.840.114 350.1.13.10 4.2.7.2.686 [id number] [facility] 2023-09-04 09:00:00 2023-09-04 09:00:00 [facility] [id number] 2023-09-02 13:30:00 2023-09-02 14:05:21 Outpatient R DAVID LADD [facility] [id number] [facility] 2023-09-02 13:30:00 2023-09-02 14:05:21 Office Visit David Ladd [facility] BUILDING 1.2840.114 350.1.13.10 4.2.7.2.686 [id number] [facility] 2023-09-02 00:00:00 2023-09-02 00:00:00 Orders Only Doctor Unassigned, [place] [facility] 1.2840.114 350.1.13.10 4.2.7.2.686 [id number] [facility] 2023-09-01 00:00:00 2023-09-01 00:00:00 Outpatient R [facility] [id number] [facility] 2023-08-27 00:00:00 2023-08-27 00:00:00 Outpatient R [facility] [id number] [facility] 2023-08-06 00:00:00 2023-08-06 00:00:00 Telephone Cornelia Sanderson [facility] BUILDING 1.840.114 350.1.13.10 4.2.7.2.686 [id number] [facility] 2023-08-04 00:00:00 2023-08-04 00:00:00 Telephone David Ladd [facility] BUILDING 1.2840.114 350.1.13.10 4.2.7.2.686 [id number] [facility] 2023-07-31 08:00:00 2023-07-31 08:30:00 Case Management Ellis Munoz Trudy [facility] MEDICAL OFFICE BUILDING 1.2840.114 350.1.13.10 4.2.7.2.686 [id number] [facility] 2023-07-31 08:00:00 2023-07-31 08:00:00 Outpatient R JONATHAN ZAPATA [facility] [id number] [facility] 2023-07-30 13:12:17 2023-07-30 23:59:00 Outpatient R DAVID LADD [facility] [id number] [facility] 2023-07-30 13:12:17 2023-07-30 23:59:00 Hospital Encounter David Ladd [facility] BUILDING 1.840.114 350.1.13.10 4.2.7.2.686 [id number] [facility] 2023-06-19 08:00:00 2023-06-19 08:30:00 Case Management Alexander Cardiom Radha Billingsley [facility] MEDICAL OFFICE BUILDING 1.840.114 350.1.13.10 4.2.7.2.686 [id number] [facility] 2023-06-19 08:00:00 2023-06-19 08:00:00 Outpatient R JOSE CRUZ [facility] [id number] [facility] 2023-06-03 00:00:00 2023-06-03 00:00:00 Outpatient R [facility] [id number] [facility] 2023-06-03 00:00:00 2023-06-03 00:00:00 Orders Only Doctor Unassigned, [place] [facility] 1.840.114 350.1.13.10 4.2.7.2.686 [id number] [facility] 2023-05-22 14:30:00 2023-05-22 15:00:00 Case Management Alexander Cardiomem Interakash Neftali Jonathan [facility] MEDICAL OFFICE BUILDING 1.840.114 350.1.13.10 4.2.7.2.686 [id number] [facility] 2023-05-22 14:30:00 2023-05-22 14:30:00 Outpatient JONATHAN DIAZ [facility] [id number] [facility] 2023-05-07 09:00:00 2023-05-07 09:00:00 Outpatient SEBLE SANDERSON [facility] [id number] [facility] 2023-05-04 00:00:00 2023-05-04 00:00:00 Orders Only Doctor Unassigned, [place] [facility] 1.840.114 350.1.13.10 4.2.7.2.686 [id number] [facility] 2023-05-01 10:30:00 2023-05-01 11:04:31 Outpatient DAVID MATUTE [facility] [id number] [facility] 2023-05-01 10:30:00 2023-05-01 11:04:31 Office Visit David Ladd [facility] NAL BUILDING 1.840.114 350.1.13.10 4.2.7.2.686 [id number] [facility] 2023-04-17 16:00:00 2023-04-17 16:30:00 Case Management Alexander, CardioJonathan Ballesteros [facility] OFFICE BUILDING 1..840.114 350.1.13.10 4.2.7.2.686 [id number] [facility] 2023-04-17 16:00:00 2023-04-17 16:00:00 Outpatient JONATHAN DIAZ [facility] [id number] [facility] 2023-04-09 10:15:00 2023-04-09 10:40:41 Office Visit Seble Price [facility] 1.840.114 350.1.13.10 4.2.7.2.686 [id number] [facility] 2023-04-09 09:00:00 2023-04-09 09:00:00 Outpatient R KELLY KNOWLES [facility] [id number] [facility] 2023-03-27 20:26:00 2023-03-28 05:56:00 Emergency X JORGE YAÑEZ [facility] ERT [id number] [facility] 2023-03-27 20:26:00 2023-03-28 05:56:00 Emergency OtilioJorge yeboah [facility] 1..840.114 350.1.13.10 4.2.7.2.686 [id number] [facility] 2023-03-13 15:30:00 2023-03-13 16:00:00 Case Management Ellis Munoz Trudy [facility] MEDICAL OFFICE BUILDING 1..840.114 350.1.13.10 4.2.7.2.686 [id number] [facility] 2023-03-13 15:30:00 2023-03-13 15:30:00 Outpatient R DARIN ZAPATAUDY [facility] [id number] [facility] 2023-02-09 09:00:00 2023-02-09 09:00:00 Outpatient R DAVID LADD [facility] [id number] [facility] 2023-02-06 11:07:00 2023-02-06 23:59:00 Hospital Encounter Rebecca Palmer BUILDING 1..840.114 350.1.13.10 4.2.7.2.686 [id number] [facility] 2023-02-06 14:30:00 2023-02-06 15:00:00 Case Management [facility] 1..840.114 350.1.13.10 4.2.7.2.686 [id number] [facility] 2023-02-06 14:30:00 2023-02-06 14:30:00 [facility] [id number] 2023-02-06 00:00:00 2023-02-06 00:00:00 Outpatient R JONATHAN ZAPATA [facility] [id number] [facility] 2023-01-02 10:30:00 2023-01-02 11:00:00 Case Management Alexander CardioJonathan Ballesteros [facility] BUILDING 1..840.114 350.1.13.10 4.2.7.2.686 [id number] [facility] 2023-01-02 10:30:00 2023-01-02 10:30:00 Outpatient R JONATHAN ZAPATA [facility] [id number] [facility] 2022-11-28 12:00:00 2022-11-28 16:59:18 Case Management Ellis Munoz [facility] BUILDING 1..840.114 350.1.13.10 4.2.7.2.686 [id number] [facility] 2022-11-28 12:00:00 2022-11-28 12:00:00 Outpatient R JOSE CRUZ [facility] [id number] [facility] 2022-10-27 10:30:00 2022-10-27 11:10:01 Outpatient R DAVID LADD [facility] [id number] [facility] 2022-10-27 10:30:00 2022-10-27 11:10:01 Office Visit David Ladd [facility] BUILDING 1..840.114 350.1.13.10 4.2.7.2.686 [id number] [facility] 2022-10-27 00:00:00 2022-10-27 00:00:00 Orders Only Doctor Unassigned, [place] [facility] 1.2840.114 350.1.13.10 4.2.7.2.686 [id number] [facility] 2022-10-24 12:30:00 2022-10-24 13:00:00 Case Management Alexadner CardioJonathan Ballesteros [facility] MEDICAL OFFICE BUILDING 1.84.114 350.1.13.10 4.2.7.2.686 [id number] [facility] 2022-10-24 12:30:00 2022-10-24 12:30:00 Outpatient R ZAPATA JONATHAN [facility] [id number] [facility] 2022-10-02 08:20:00 2022-10-02 23:59:00 Outpatient R DAVID LADD [facility] [id number] [facility] 2022-09-24 10:00:00 2022-09-24 12:09:47 Outpatient R TANA WHITMORE [facility] [id number] [facility] 2022-09-24 10:00:00 2022-09-24 12:09:47 Office Visit Tana Whitmore [facility] NAL BUILDING 1.84.114 350.1.13.10 4.2.7.2.686 [id number] [facility] 2022-09-19 10:00:00 2022-09-19 10:30:00 Case Management Alexander CardioDonovan Montero [facility] MEDICAL OFFICE BUILDING 1.284.114 350.1.13.10 4.2.7.2.686 [id number] [facility] 2022-09-19 10:00:00 2022-09-19 10:00:00 Outpatient R BILLINGSLEYDONOVAN FERMIN [facility] [id number] [facility] 2022-08-27 00:00:00 2022-08-27 00:00:00 Orders Only Doctor Unassigned, [place] [facility] 1.2.840.114 350.1.13.10 4.2.7.2.686 [id number] [facility] 2022-08-21 10:00:00 2022-08-21 10:08:22 Outpatient R DAVID LADD [facility] [id number] [facility] 2022-08-21 10:00:00 2022-08-21 10:08:22 Office Visit David Ladd [facility] BUILDING 1.2.840.114 350.1.13.10 4.2.7.2.686 [id number] [facility] 2022-08-21 09:20:00 2022-08-21 09:40:00 Office Visit Cornelia Sanderson [facility] BUILDING 1.2.840.114 350.1.13.10 4.2.7.2.686 [id number] [facility] 2022-08-15 11:00:00 2022-08-15 11:30:00 Case Management Ellis Munoz Trudy [facility] MEDICAL OFFICE BUILDING 1.2.840.114 350.1.13.10 4.2.7.2.686 [id number] [facility] 2022-08-15 11:00:00 2022-08-15 11:00:00 Outpatient R JONATHAN ZAPATA [facility] [id number] [facility] 2022-07-14 00:00:00 2022-07-14 00:00:00 Telephone Maria E Fischer [facility] BUILDING 1..840.114 350.1.13.10 4.2.7.2.686 [id number] [facility] 2022-07-11 11:00:00 2022-07-11 11:30:00 Case Management Ellis Munoz Trudy [facility] MEDICAL OFFICE BUILDING 1.840.114 350.1.13.10 4.2.7.2.686 [id number] [facility] 2022-07-11 11:00:00 2022-07-11 11:00:00 Outpatient JONATHAN DIAZ [facility] [id number] [facility] 2022-06-30 16:30:00 2022-06-30 16:30:00 Outpatient R JUAN MAZARIEGOS [facility] [id number] [facility] 2022-06-17 14:20:00 2022-06-17 14:20:00 Outpatient R TANA WHITMORE [facility] [id number] [facility] 2022-06-16 00:00:00 2022-06-16 00:00:00 Telephone Adrianna Heath [facility] 1.840.114 350.1.13.10 4.2.7.2.686 [id number] [facility] 2022-06-13 15:30:00 2022-06-13 15:30:00 Outpatient ADRIANNA LUCAS [facility] [id number] [facility] 2022-06-12 00:00:00 2022-06-12 00:00:00 Orders Only Doctor Unassigned, [place] [facility] 1.840.114 350.1.13.10 4.2.7.2.686 [id number] [facility] 2022-06-10 00:00:00 2022-06-10 00:00:00 Transition of Care Page Seth 1.2.840.114 350.1.13.10 4.2.7.2.686 [id number] [facility] 2022-06-10 00:00:00 2022-06-10 00:00:00 Orders Only Doctor Unassigned, [place] [facility] 1.2.840.114 350.1.13.10 4.2.7.2.686 [id number] [facility] 2022-06-05 15:57:00 2022-06-09 18:30:00 Inpatient X BJ WEISS [facility] JOANA [id number] [facility] 2022-06-05 15:57:00 2022-06-09 18:30:00 Hospital Encounter Jesse Soliz [place], Jelani [facility] 1.840.114 350.1.13.10 4.2.7.2.686 [id number] [facility] 2022-06-06 11:00:00 2022-06-06 11:30:00 Case Management Ellis Munoz Trudy [facility] MEDICAL OFFICE BUILDING 1.2840.114 350.1.13.10 4.2.7.2.686 [id number] [facility] 2022-06-05 00:00:00 2022-06-05 00:00:00 Telephone Cornelia Sanderson [facility] PROFESSIO NAL BUILDING 1.2840.114 350.1.13.10 4.2.7.2.686 [id number] [facility] 2022-06-04 07:48:00 2022-06-04 10:01:00 Emergency X KIMI YADAV [facility] ERT [id number] [facility] 2022-06-04 07:48:00 2022-06-04 10:01:00 Emergency Kimi Yadav [facility] 1.2.840.114 350.1.13.10 4.2.7.2.686 [id number] [facility] 2022-06-04 00:00:00 2022-06-04 00:00:00 Transition of Care Page Seth ALEX CEE 1.2.840.114 350.1.13.10 4.2.7.2.686 [id number] [facility] 2022-06-01 12:35:00 2022-06-03 11:25:00 Inpatient X ISELA BJ [facility] [id number] [facility] 2022-06-01 12:35:00 2022-06-03 11:25:00 Hospital Encounter Asad Armendariz Jelani [facility] 1.2840.114 350.1.13.10 4.2.7.2.686 [id number] [facility] 2022-05-28 06:31:00 2022-05-28 13:37:00 Outpatient R HALLIE GREENBERG [facility] [id number] [facility] 2022-05-28 06:31:00 2022-05-28 13:37:00 Hospital Encounter Hallie Greenberg [facility] 1.2840.114 350.1.13.10 4.2.7.2.686 [id number] [facility] 2022-05-28 00:00:00 2022-05-28 00:00:00 Transition of Care AricperezLilli 1.2.840.114 350.1.13.10 4.2.7.2.686 [id number] [facility] 2022-05-23 00:00:00 2022-05-23 00:00:00 [facility]phone [facility] 1.2840.114 350.1.13.10 4.2.7.2.686 [id number] [facility] 2022-05-22 10:49:00 2022-05-22 15:18:00 Emergency MARY MARKHAM [facility] ERT [id number] [facility] 2022-05-22 10:49:00 2022-05-22 15:18:00 Emergency Mary Reynaga [facility] 1.2840.114 350.1.13.10 4.2.7.2.686 [id number] [facility] 2022-05-22 00:00:00 2022-05-22 00:00:00 Telephone Kim Jones [facility] 1.20.114 350.1.13.10 4.2.7.2.686 [id number] [facility] 2022-05-21 10:00:00 2022-05-21 10:00:00 Outpatient R MYRANDA TANA [facility] [id number] [facility] 2022-05-20 15:40:00 2022-05-20 15:40:00 Outpatient R TANA WHITMORE [facility] [id number] [facility] 2022-05-20 12:02:00 2022-05-20 13:33:00 Emergency Princessedrosie Jean Claudekatelyn Kathie [facility] 1.20.114 350.1.13.10 4.2.7.2.686 [id number] [facility] 2022-05-20 09:30:00 2022-05-20 09:30:00 Office [facility] 1.2840.114 350.1.13.10 4.2.7.2.686 [id number] [place] [facility]-05-20 09:30:00 2022-05-20 09:08:19 Outpatient R PRUDENCE COHEN [facility] ERT [id number] [facility] 2022-05-20 00:00:00 2022-05-20 00:00:00 Telephone David Ladd [facility] 1.2.840.114 350.1.13.10 4.2.7.2.686 [id number] [facility] 2022-05-20 00:00:00 2022-05-20 00:00:00 Telephone Sunshine Klein [facility] 1.2.840.114 350.1.13.10 4.2.7.2.686 [id number] [facility] 2022-05-19 13:30:00 2022-05-19 14:40:01 Office Visit MjMinervaveronique [facility] 1.2.840.114 350.1.13.10 4.2.7.2.686 [id number] [facility] 2022-05-19 10:00:00 2022-05-19 10:00:00 Outpatient ADRIANNA LUCAS [facility] [id number] [facility] 2022-05-16 08:15:00 2022-05-16 08:15:00 Outpatient KIM HU [facility] [id number] [facility] 2022-05-16 00:00:00 2022-05-16 00:00:00 Transition of Care Chelo Mata 1.2.840.114 350.1.13.10 4.2.7.2.686 [id number] [facility] 2022-05-11 02:38:00 2022-05-15 18:44:00 Hospital Encounter Morrical, Prieto Greenberg, Josefinakimberly SierraBrito [place], Gino Farmer [facility] 1..840.114 350.1.13.10 4.2.7.2.686 [id number] [facility] 2022-05-14 09:40:00 2022-05-14 09:40:00 Outpatient SUNSHINE GALLAGHER STRAINWandy [facility] [id number] [facility] 2022-05-14 00:00:00 2022-05-14 00:00:00 Telephone Sunshine Klein [facility] PROFESS[facility] 1..840.114 350.1.13.10 4.2.7.2.686 [id number] [facility] 2022-05-12 15:00:00 2022-05-12 15:00:00 Outpatient JUAN HARRISON [facility] [id number] [facility] 2022-05-10 00:00:00 2022-05-10 00:00:00 Nurse Triage Alisa Gonzalez [facility] 1..840.114 350.1.13.10 4.2.7.2.686 [id number] [facility] 2022-05-09 14:14:00 2022-05-09 16:59:00 Emergency X PIA WATTS [facility] ERT [id number] [facility] 2022-05-09 14:14:00 2022-05-09 16:59:00 Emergency Pia Watts [facility] 1..840.114 350.1.13.10 4.2.7.2.686 [id number] [facility] 2022-05-09 13:30:00 2022-05-09 14:01:50 Outpatient BROOKS ROLLINS OGECHUKWU [facility] [id number] [facility] 2022-05-09 13:30:00 2022-05-09 14:01:50 Office Visit Brooks Barker [facility] PROFESSIO NAL [facility]ILDING 1.2.840.114 350.1.13.10 4.2.7.2.686 [id number] [facility] 2022-05-09 13:30:00 2022-05-09 14:01:50 Outpatient R BROOKS BARKER, BROOKS [facility] ERT [id number] [facility] 2022-05-07 00:00:00 2022-05-07 00:00:00 Transition of Care Chelo Mata 1.2840.114 350.1.13.10 4.2.7.2.686 [id number] [facility] 2022-05-05 14:17:00 2022-05-06 11:24:00 Outpatient X CRISS LEYVA [facility] [id number] [facility] 2022-05-05 14:17:00 2022-05-06 11:24:00 Emergency Tomas Mcguire David [facility] 1.2840.114 350.1.13.10 4.2.7.2.686 [id number] [facility] 2022-05-03 00:00:00 2022-05-03 00:00:00 Refill Brooks Barker [facility] PROFESS[facility] NAL [facility]ILD[facility] 1.2840.114 350.1.13.10 4.2.7.2.686 [id number] [facility] 2022-05-01 00:00:00 2022-05-01 00:00:00 Transition of Care Page Seth 1.2.840.114 350.1.13.10 4.2.7.2.686 [id number] [facility] 2022-04-29 10:27:00 2022-04-30 11:35:00 Outpatient X BJ WEISS [facility] [id number] [facility] 2022-04-29 10:27:00 2022-04-30 11:35:00 Emergency [facility] 1.840.114 350.1.13.10 4.2.7.2.686 [id number] [facility] 2022-04-28 13:00:00 2022-04-28 14:02:49 Outpatient KIM HU [facility] [id number] [facility] 2022-04-28 13:00:00 2022-04-28 14:02:49 Office Visit Kim Jones [facility] PROFESS[facility] 1.840.114 350.1.13.10 4.2.7.2.686 [id number] [facility] 2022-04-24 00:00:00 2022-04-24 00:00:00 Transition of Care Erica Sousa [facility] 1.84.114 350.1.13.10 4.2.7.2.686 [id number] [facility] 2022-04-22 08:43:00 2022-04-23 11:50:00 Outpatient X CRISS LEYVA [facility] JOANA [id number] [facility] 2022-04-22 08:43:00 2022-04-23 11:50:00 Emergency Pia Watts David [facility] 1.84.114 350.1.13.10 4.2.7.2.686 [id number] [facility] 2022-04-17 07:23:00 2022-04-17 08:09:00 Emergency X PIA WATTS [facility] ERT [id number] [facility] 2022-04-17 07:23:00 2022-04-17 08:09:00 Emergency Pia Watts [facility] 1.2.840.114 350.1.13.10 4.2.7.2.686 [id number] [facility] 2022-04-16 14:00:00 2022-04-16 14:00:00 Outpatient MIKO BLUNT [facility] [id number] [facility] 2022-04-15 13:39:00 2022-04-15 16:22:00 Emergency X JOSEPH QUINONES [facility] ERT [id number] [facility] 2022-04-15 13:39:00 2022-04-15 16:22:00 Emergency Pippasheron [facility] 1.2840.114 350.1.13.10 4.2.7.2.686 [id number] [facility] 2022-04-09 16:00:00 2022-04-09 16:00:00 Outpatient MIKO BLUNT [facility] [id number] [facility] 2022-04-09 00:00:00 2022-04-09 00:00:00 Orders Only Doctor Unassigned, [place] [facility] 1.2.840.114 350.1.13.10 4.2.7.2.686 [id number] [facility] 2022-04-03 00:00:00 2022-04-03 00:00:00 Transition of Care Page Seth 1.2.840.114 350.1.13.10 4.2.7.2.686 [id number] [facility] 2022-03-28 19:05:00 2022-04-02 15:00:00 Inpatient X TONYA CARRION [facility] JOANA [id number] [facility] 2022-03-28 19:05:00 2022-04-02 15:00:00 Hospital Encounter Tc, Karine Ugarte, Steven Gamino, Fran Carrion, Tonya [facility] 1.840.114 350.1.13.10 4.2.7.2.686 [id number] [facility] 2022-03-28 19:05:00 2022-04-02 15:00:00 [facility] [id number] [facility] 2022-04-01 14:00:00 2022-04-01 14:00:00 Outpatient R [facility] [id number] [facility] 2022-04-01 14:00:00 2022-04-01 14:00:00 Outpatient R [facility] [id number] [facility] 2022-04-01 14:00:00 2022-04-01 14:00:00 Outpatient R [facility] [id number] [facility] 2022-03-28 00:00:00 2022-03-28 00:00:00 Nurse Triage Adilene Dumas [facility] 1.840.114 350.1.13.10 4.2.7.2.686 [id number] [facility] 2022-03-27 00:00:00 2022-03-27 00:00:00 Telephone [place], Nephrology [facility] 1..114 350.1.13.10 4.2.7.2.686 [id number] [facility] 2022-03-26 14:30:00 2022-03-26 14:56:45 Outpatient R BROOKS BARKER OGECHUKWU [facility] [id number] [facility] 2022-03-26 14:30:00 2022-03-26 14:56:45 Office Visit MjBrooks hurst [facility] PROFESSIO NAL BUILDING 1.2.840.114 350.1.13.10 4.2.7.2.686 [id number] [facility] 2022-03-26 14:30:00 2022-03-26 14:56:45 Outpatient R BROOKS BARKER OGECHUKWU [facility] [id number] [facility] 2022-03-20 00:00:00 2022-03-20 00:00:00 Transition of Care Page Seth PLASANAM 1.2.840.114 350.1.13.10 4.2.7.2.686 [id number] [facility] 2022-03-20 00:00:00 2022-03-20 00:00:00 Telephone [facility] 1.2.840.114 350.1.13.10 4.2.7.2.686 [id number] [facility] 2022-03-17 13:52:00 2022-03-19 10:30:00 Hospital Encounter Asad Armendariz Jelani [facility] 1.2.840.114 350.1.13.10 4.2.7.2.686 [id number] [facility] 2022-03-17 13:30:00 2022-03-17 14:00:48 Outpatient R BROOKS BARKER OGECHUKWU [facility] [id number] [facility] 2022-03-17 13:30:00 2022-03-17 14:00:48 Outpatient R BROOKS BARKER OGECHUKWU [facility] [id number] [facility] 2022-03-17 13:30:00 2022-03-17 14:00:48 Office Visit Brooks [facility] 1..840.114 350.1.13.10 4.2.7.2.686 [id number] [facility] 2022-03-17 13:30:00 2022-03-17 14:00:48 Outpatient R BROOKS BARKER OGECHUKWU [facility] [id number] [facility] 2022-03-17 13:30:00 2022-03-17 14:00:48 Outpatient R BROOKS BARKER OGECHUKWU [facility] [id number] [facility] 2022-03-17 13:30:00 2022-03-17 14:00:48 Outpatient R BROOKS BARKER OGECHUKWU [facility] [id number] [facility] 2022-03-12 00:00:00 2022-03-12 00:00:00 Orders Only Doctor Unassigned, [place] [facility] 1..840.114 350.1.13.10 4.2.7.2.686 [id number] [facility] 2022-03-11 20:00:00 2022-03-11 22:30:00 Business Solutions Analyst Visit 1, [employer] Sleep Lab Bed Sunshine Klein [facility] 1..840.114 350.1.13.10 4.2.7.2.686 [id number] [facility] 2022-03-11 20:00:00 2022-03-11 20:00:00 Outpatient R SUNSHINE KLEIN STRAHIL [facility] [id number] [facility] 2022-03-11 20:00:00 2022-03-11 20:00:00 Outpatient R SHARONSUNSHINE ARZOLA SHARONDARIUSZ SUNSHINE [facility] [id number] [facility] 2022-03-10 14:45:00 2022-03-10 15:00:00 Laboratory Only Only, Adc Test Rebecca Palmer [facility] 1.2.840.114 350.1.13.10 4.2.7.2.686 [id number] [facility] 2022-03-10 14:45:00 2022-03-10 14:45:00 Outpatient R REBECCA PALMER [facility] [id number] [facility] 2022-03-10 11:00:00 2022-03-10 11:00:00 Outpatient R [facility] [id number] [facility] 2022-03-10 00:00:00 2022-03-10 00:00:00 Transition of Care Page Seth 1.2.840.114 350.1.13.10 4.2.7.2.686 [id number] [facility] 2022-03-05 12:15:00 2022-03-07 13:33:00 Outpatient X BJ WEISS [facility] JOANA [id number] [facility] 2022-03-05 12:15:00 2022-03-07 13:33:00 [facility] 1.2.840.114 350.1.13.10 4.2.7.2.686 [id number] [facility] 2022-03-05 12:15:00 2022-03-07 13:33:00 [facility] [id number] [facility] 2022-03-05 14:00:00 2022-03-05 14:00:00 Outpatient R BROOKS BARKER OGECHUKWU [facility] [id number] [facility] 2022-03-05 12:15:00 2022-03-05 12:15:00 Emergency X JANINA OH [facility] ERT [id number] [facility] 2022-03-05 12:15:00 2022-03-05 12:15:00 Outpatient X BJ WEISS [facility] JOANA [id number] [facility] 2022-03-05 12:15:00 2022-03-05 12:15:00 Outpatient X BJ WEISS [facility] JOANA [id number] [facility] 2022-03-05 12:15:00 2022-03-05 12:15:00 Outpatient X BJ WEISS [facility] JOANA [id number] [facility] 2022-03-05 00:00:00 2022-03-05 00:00:00 Patient Outreach Shahnaz Ulloa [facility] 1.2.840.114 350.1.13.10 4.2.7.2.686 [id number] [facility] 2022-03-05 00:00:00 2022-03-05 00:00:00 Patient Outreach Shahnaz Ulloa [facility] 1.2.840.114 350.1.13.10 4.2.7.2.686 [id number] [facility] 2022-03-05 00:00:00 2022-03-05 00:00:00 Patient Outreach Shahnaz Ulloa [facility] 1.2.840.114 350.1.13.10 4.2.7.2.686 [id number] [facility] 2022-03-05 00:00:00 2022-03-05 00:00:00 Patient Outreach Shahnaz Ulloa [facility] 1.2.840.114 350.1.13.10 4.2.7.2.686 [id number] [facility] 2022-03-04 13:00:00 2022-03-04 13:57:47 Office Visit Kim Jones [facility] PROFESSIO NAL [facility]ILD[facility] 1.2.840.114 350.1.13.10 4.2.7.2.686 [id number] [facility] 2022-03-04 13:00:00 2022-03-04 13:57:47 Outpatient R KIM JONES [facility] [id number] [facility] 2022-03-04 13:00:00 2022-03-04 13:57:47 Office Visit [facility] 1.2.840.114 350.1.13.10 4.2.7.2.686 [id number] [facility] 2022-03-04 13:00:00 2022-03-04 13:57:47 Outpatient R KIM JONES [facility] [id number] [facility] 2022-03-04 13:00:00 2022-03-04 13:57:47 Office Visit Kim Jones [facility] 1.2.840.114 350.1.13.10 4.2.7.2.686 [id number] [facility] 2022-03-04 13:00:00 2022-03-04 13:57:47 Outpatient R KIM JONES [facility] [id number] [facility] 2022-03-04 13:00:00 2022-03-04 13:00:00 Outpatient R KIM JONES [facility] [id number] [facility] 2022-03-02 00:00:00 2022-03-02 00:00:00 Elizabet Argueta [facility] 1.840.114 350.1.13.10 4.2.7.2.686 [id number] [facility] 2022-02-28 00:00:00 2022-02-28 00:00:00 Orders Only Doctor Unassigned, [place] [facility] 1.84.114 350.1.13.10 4.2.7.2.686 [id number] [facility] 2022-02-27 14:47:00 2022-02-27 16:52:00 Emergency X MARY REYNAGA [facility] ERT [id number] [facility] 2022-02-27 14:47:00 2022-02-27 16:52:00 Emergency Mary Reynaga [facility] 1.840.114 350.1.13.10 4.2.7.2.686 [id number] [facility] 2022-02-27 14:47:00 2022-02-27 16:52:00 Emergency X MARY REYNAGA [facility] ERT [id number] [facility] 2022-02-27 14:47:00 2022-02-27 16:52:00 Emergency X MARY REYNAGA [facility] ERT [id number] [facility] 2022-02-27 14:47:00 2022-02-27 16:52:00 Emergency X MARY REYNAGA [facility] ERT [id number] [facility] 2022-02-27 00:00:00 2022-02-27 00:00:00 Telephone David Ladd [facility] 1..840.114 350.1.13.10 4.2.7.2.686 [id number] [facility] 2022-02-27 00:00:00 2022-02-27 00:00:00 Telephone David LaddHTej [facility] 1.840.114 350.1.13.10 4.2.7.2.686 [id number] [facility] 2022-02-27 00:00:00 2022-02-27 00:00:00 Telephone Juan [facility]azariegos [facility] 1..114 350.1.13.10 4.2.7.2.686 [id number] [facility] 2022-02-26 09:30:00 2022-02-26 10:04:13 Outpatient R DAVID LADD [facility] [id number] [facility] 2022-02-26 09:30:00 2022-02-26 10:04:13 Office Visit David Ladd [facility] 1..840.114 350.1.13.10 4.2.7.2.686 [id number] [facility] 2022-02-26 09:30:00 2022-02-26 10:04:13 Outpatient R DAVID LADD [facility] [id number] [facility] 2022-02-26 09:30:00 2022-02-26 10:04:13 Outpatient R DAVID LADD [facility] [id number] [facility] 2022-02-26 08:30:00 2022-02-26 08:30:00 Outpatient R DAVID LADD [facility] [id number] [facility] 2022-02-26 08:30:00 2022-02-26 08:30:00 Outpatient R DAVID LADD [facility] [id number] [facility] 2022-02-26 00:00:00 2022-02-26 00:00:00 Telephone Juan Mazariegos [facility] 1.84114 350.1.13.10 4.2.7.2.686 [id number] [facility] 2022-02-25 00:00:00 2022-02-25 00:00:00 Outpatient R [facility] [id number] [facility] 2022-02-25 00:00:00 2022-02-25 00:00:00 Outpatient R [facility] [id number] [facility] 2022-02-25 00:00:00 2022-02-25 00:00:00 Orders Only Doctor Unassigned, [place] [facility] 1..840.114 350.1.13.10 4.2.7.2.686 [id number] [facility] 2022-02-24 17:06:00 2022-02-24 19:41:00 Emergency Pia Watts [facility] 1..840.114 350.1.13.10 4.2.7.2.686 [id number] [facility] 2022-02-24 16:30:00 2022-02-24 16:49:48 Outpatient R BROOKS BARKER OGECHUKWU [facility] [id number] [facility] 2022-02-24 16:30:00 2022-02-24 16:49:48 Outpatient R BROOKS BARKER OGECHUKWU [facility] ERT [id number] [facility] 2022-02-24 16:30:00 2022-02-24 16:49:48 Office Visit Brooks [facility] 1..840.114 350.1.13.10 4.2.7.2.686 [id number] [facility] 2022-02-24 16:30:00 2022-02-24 16:49:48 Outpatient R BROOKS BARKER OGECHUKWU [facility] ERT [id number] [facility] 2022-02-24 16:30:00 2022-02-24 16:49:48 Outpatient R MJBROOKS OGECHUKWU [facility] [id number] [facility] 2022-02-24 16:30:00 2022-02-24 16:49:48 Outpatient R BROOKS BARKER [facility]WU [facility] [id number] [facility] 2022-02-20 00:00:00 2022-02-20 00:00:00 Telephone Nicolás Ma [facility] 1.0.114 350.1.13.10 4.2.7.2.686 [id number] [facility] 2022-02-20 00:00:00 2022-02-20 00:00:00 Telephone Nicolás aM [facility] 1.0.114 350.1.13.10 4.2.7.2.686 [id number] [facility] 2022-02-20 00:00:00 2022-02-20 00:00:00 Telephone Nicolás Ma [facility] 1.0.114 350.1.13.10 4.2.7.2.686 [id number] [facility] 2022-02-19 00:00:00 2022-02-19 00:00:00 Transition of Care Page Seth 1..114 350.1.13.10 4.2.7.2.686 [id number] [facility] 2022-02-19 00:00:00 2022-02-19 00:00:00 Telephone [facility] 1.0.114 350.1.13.10 4.2.7.2.686 [id number] [facility] 2022-02-19 00:00:00 2022-02-19 00:00:00 Telephone [facility] 1.2.840.114 350.1.13.10 4.2.7.2.686 [id number] [facility] 2022-02-19 00:00:00 2022-02-19 00:00:00 Orders Only Doctor Unassigned, [place] [facility] 1..840.114 350.1.13.10 4.2.7.2.686 [id number] [facility] 2022-02-19 00:00:00 2022-02-19 00:00:00 Telephone David Ladd [facility] 1..840.114 350.1.13.10 4.2.7.2.686 [id number] [facility] 2022-02-14 20:36:00 2022-02-18 13:15:00 Inpatient HALLIE SWENSON [facility] [id number] [facility] 2022-02-14 20:36:00 2022-02-18 13:15:00 Hospital Encounter Jesse Soliz Wissam Ibrahim [facility] 1.840.114 350.1.13.10 4.2.7.2.686 [id number] [facility] 2022-02-14 20:36:00 2022-02-18 13:15:00 Inpatient HALLIE SWENSON [facility] [id number] [facility] 2022-02-14 20:36:00 2022-02-18 13:15:00 Inpatient HALLIE SWENSON [facility] [id number] [facility] 2022-02-18 00:00:00 2022-02-18 00:00:00 Telephone Hallie Greenberg [facility] 1.2.840.114 350.1.13.10 4.2.7.2.686 [id number] [facility] 2022-02-17 11:00:00 2022-02-17 11:00:00 Outpatient KIM HU [facility] [id number] [facility] 2022-02-17 00:00:00 2022-02-17 00:00:00 Telephone Hallie Greenberg [facility] 1.2.840.114 350.1.13.10 4.2.7.2.686 [id number] [facility] 2022-02-11 14:00:00 2022-02-11 14:00:00 Outpatient KIM HU [facility] [id number] [facility] 2022-02-11 14:00:00 2022-02-11 14:00:00 Outpatient KIM HU [facility] [id number] [facility] 2022-02-11 14:00:00 2022-02-11 14:00:00 Outpatient KIM HU [facility] [id number] [facility] 2022-02-11 14:00:00 2022-02-11 14:00:00 Outpatient KIM HU [facility] [id number] [facility] 2022-02-11 14:00:00 2022-02-11 14:00:00 Outpatient KIM HU [facility] [id number] [facility] 2022-02-11 14:00:00 2022-02-11 14:00:00 Outpatient KIM HU [facility] [id number] [facility] 2022-02-11 14:00:00 2022-02-11 14:00:00 Outpatient KIM HU [facility] [id number] [facility] 2022-02-11 14:00:00 2022-02-11 14:00:00 Outpatient KIM HU [facility] [id number] [facility] 2022-02-11 14:00:00 2022-02-11 14:00:00 Outpatient R KIM JONES [facility] [id number] [facility] 2022-02-11 14:00:00 2022-02-11 14:00:00 Outpatient R KIM JONES [facility] [id number] [facility] 2022-02-11 14:00:00 2022-02-11 14:00:00 Outpatient KIM HU [facility] [id number] [facility] 2022-02-11 14:00:00 2022-02-11 14:00:00 Outpatient KIM HU [facility] [id number] [facility] 2022-02-11 14:00:00 2022-02-11 14:00:00 Outpatient KIM HU [facility] [id number] [facility] 2022-02-11 14:00:00 2022-02-11 14:00:00 Outpatient R KIM JONES [facility] [id number] [facility] 2022-02-11 14:00:00 2022-02-11 14:00:00 Outpatient R KIM JONES [facility] [id number] [facility] 2022-02-10 00:00:00 2022-02-10 00:00:00 David Rodriguez [facility] 1.2.840.114 350.1.13.10 4.2.7.2.686 [id number] [facility] 2022-02-08 11:46:00 2022-02-08 13:44:00 Emergency X MARY REYNAGA [facility] ERT [id number] [facility] 2022-02-08 11:46:00 2022-02-08 13:44:00 Emergency [facility] [facility] 1.2840.114 350.1.13.10 4.2.7.2.686 [id number] [facility] 2022-02-08 11:46:00 2022-02-08 13:44:00 Emergency X MARY REYNAGA [facility] ERT [id number] [facility] 2022-02-06 00:00:00 2022-02-06 00:00:00 Orders Only Doctor Unassigned, [place] [facility] 1.2840.114 350.1.13.10 4.2.7.2.686 [id number] [facility] 2022-02-05 09:30:00 2022-02-05 09:56:26 Outpatient R DAVID LADD [facility] [id number] [facility] 2022-02-05 09:30:00 2022-02-05 09:56:26 Nurse Visit Visit, [employer] Nurse David Ladd [facility] 1.2.840.114 350.1.13.10 4.2.7.2.686 [id number] [facility] 2022-02-05 09:30:00 2022-02-05 09:56:26 Outpatient R DAVID LADD [facility] [id number] [facility] 2022-02-05 00:00:00 2022-02-05 00:00:00 Telephone David Ladd [facility] 1.2.840.114 350.1.13.10 4.2.7.2.686 [id number] [facility] 2022-02-05 00:00:00 2022-02-05 00:00:00 Transition of Care Page Seth 1.2.840.114 350.1.13.10 4.2.7.2.686 [id number] [facility] 2022-02-04 15:00:00 2022-02-04 15:00:00 Outpatient R [facility] [id number] [facility] 2022-02-04 15:00:00 2022-02-04 15:00:00 Outpatient R [facility] [id number] [facility] 2022-02-02 12:47:00 2022-02-03 18:00:00 Outpatient CRISS ALATORRE [facility] [id number] [facility] 2022-02-02 12:47:00 2022-02-03 18:00:00 Emergency Michelle Miranda David [facility] 1..840.114 350.1.13.10 4.2.7.2.686 [id number] [facility] 2022-02-02 12:47:00 2022-02-03 18:00:00 Outpatient CRISS ALATORRE [facility] [id number] [facility] 2022-02-02 00:00:00 2022-02-02 00:00:00 Nurse Triage Radha Gonsalves [facility] 1..840.114 350.1.13.10 4.2.7.2.686 [id number] [facility] 2022-01-28 08:30:00 2022-01-28 08:30:00 Outpatient DAVID MATUTE [facility] [id number] [facility] 2022-01-28 08:30:00 2022-01-28 08:30:00 Outpatient DAVID MATUTE [facility] [id number] [facility] 2022-01-28 08:30:00 2022-01-28 08:30:00 Outpatient R LADD DAVID [facility] [id number] [facility] 2022-01-28 08:30:00 2022-01-28 08:30:00 Outpatient R DAVID LADD [facility] [id number] [facility] 2022-01-28 08:30:00 2022-01-28 08:30:00 Outpatient R ANA LADDDANE [facility] [id number] [facility] 2022-01-28 08:30:00 2022-01-28 08:30:00 Outpatient R LADDANADANE [facility] [id number] [facility] 2022-01-28 08:30:00 2022-01-28 08:30:00 Office Visit David Ladd [facility] 1..840.114 350.1.13.10 4.2.7.2.686 [id number] [facility] 2022-01-28 08:30:00 2022-01-28 08:25:30 Outpatient R LADDDAVID [facility] [id number] [facility] 2022-01-24 00:00:00 2022-01-24 00:00:00 Transition of Care Erica Sousa [facility] 1..840.114 350.1.13.10 4.2.7.2.686 [id number] [facility] 2022-01-24 00:00:00 2022-01-24 00:00:00 Orders Only Doctor Unassigned, [place] [facility] 1.840.114 350.1.13.10 4.2.7.2.686 [id number] [facility] 2022-01-21 09:05:00 2022-01-23 19:12:00 Outpatient X BJ WEISS [facility] [id number] [facility] 2022-01-21 09:05:00 2022-01-23 19:12:00 Emergency Pia Watts Jelani [facility] 1.2.840.114 350.1.13.10 4.2.7.2.686 [id number] [facility] 2022-01-21 09:05:00 2022-01-23 19:12:00 Outpatient X BJ WEISS [facility] [id number] [facility] 2022-01-21 09:05:00 2022-01-21 09:05:00 Outpatient X BJ WEISS [facility] [id number] [facility] 2022-03-19 14:51:36 2022-01-17 12:51:00 Emergency X [facility] [id number] [facility] 2022-01-23 16:14:13 2022-01-17 12:51:00 Emergency X [facility] [id number] [facility] 2022-01-17 12:50:40 2022-01-17 12:51:00 Emergency X [facility] [id number] [facility] 2022-01-16 00:00:00 2022-01-16 00:00:00 Orders Only Doctor Unassigned, [place] [facility] 1.2.840.114 350.1.13.10 4.2.7.2.686 [id number] [facility] 2022-01-15 09:40:00 2022-01-15 09:40:00 Outpatient R ATANASOV, STRAHIL ATANASOV, STRAHIL [facility] [id number] [facility] 2022-01-15 09:40:00 2022-01-15 09:40:00 Outpatient R ATANASOV, STRAHIL ATANASOV, STRAHIL [facility] [id number] [facility] 2022-01-15 09:40:00 2022-01-15 09:40:00 Outpatient R ATANASOV, STRAHIL ATANASOV, STRAHIL [facility] [id number] [facility] 2022-01-15 09:40:00 2022-01-15 09:40:00 Outpatient R SUNSHINE KLEIN [facility] [id number] [facility] 2022-01-14 00:00:00 2022-01-14 00:00:00 Telephone Cornelia Sanderson [facility] 1.2.840.114 350.1.13.10 4.2.7.2.686 [id number] [facility] 2022-01-09 15:40:00 2022-01-09 16:19:06 Outpatient R SURENDRA JONESTH [facility] [id number] [facility] 2022-01-09 15:40:00 2022-01-09 16:19:06 Outpatient R KIM JONES [facility] [id number] [facility] 2022-01-09 15:40:00 2022-01-09 16:19:06 Office Visit Kim Jones [facility] 1.2.840.114 350.1.13.10 4.2.7.2.686 [id number] [facility] 2022-01-09 15:40:00 2022-01-09 15:40:00 Outpatient R KIM JONES [facility] [id number] [facility] 2022-01-09 15:40:00 2022-01-09 15:40:00 Outpatient R KIM JONES [facility] [id number] [facility] 2022-01-06 00:00:00 2022-01-06 00:00:00 Refill Kim Jones [facility] 1.2.840.114 350.1.13.10 4.2.7.2.686 [id number] [facility] 2022-01-04 00:00:00 2022-01-04 00:00:00 [facility] 1.2.840.114 350.1.13.10 4.2.7.2.686 [id number] [facility] 2022-01-02 13:00:00 2022-01-02 14:23:02 Outpatient R SHAR JONESBETH [facility] [id number] [facility] 2022-01-02 13:00:00 2022-01-02 14:23:02 Outpatient SHAR HUBETH [facility] [id number] [facility] 2022-01-02 13:00:00 2022-01-02 14:23:02 Office Visit Kim Jones [facility] 1.2.840.114 350.1.13.10 4.2.7.2.686 [id number] [facility] 2022-01-02 13:00:00 2022-01-02 14:23:02 Outpatient KIM HU [facility] [id number] [facility] 2022-01-02 13:00:00 2022-01-02 14:23:02 Outpatient KIM HU [facility] [id number] [facility] 2022-01-02 13:00:00 2022-01-02 14:23:02 Outpatient KIM HU [facility] [id number] [facility] 2022-01-02 13:00:00 2022-01-02 14:23:02 Outpatient KIM HU [facility] [id number] [facility] 2022-01-02 00:00:00 2022-01-02 00:00:00 Transition of Care Page Seth 1..840.114 350.1.13.10 4.2.7.2.686 [id number] [facility] 2021-12-31 07:01:00 2022-01-01 19:25:00 [facility] [id number] 2021-12-31 07:01:00 2022-01-01 19:25:00 [facility]..[facility].114 350.1.13.10 4.2.7.2.686 [id number] [facility] 2021-12-31 07:01:00 2022-01-01 19:25:00 [facility] [id number] [facility] 2021-12-31 07:01:00 2022-01-01 19:25:00 Outpatient X BJ WEISS [facility] [id number] [facility] 2021-12-27 16:00:00 2021-12-27 16:38:33 Outpatient JUAN HARRISON [facility] [id number] [facility] 2021-12-27 16:00:00 2021-12-27 16:38:33 Office Visit Juan [facility] 1..840.114 350.1.13.10 4.2.7.2.686 [id number] [facility] 2021-12-27 16:00:00 2021-12-27 16:38:33 Outpatient JUAN HARRISON [facility] [id number] [facility] 2021-12-27 16:00:00 2021-12-27 16:38:33 Outpatient JUAN HARRISON [facility] [id number] [facility] 2021-12-27 16:00:00 2021-12-27 16:38:33 Outpatient R JUAN MAZARIEGOS [facility] [id number] [facility] 2021-12-27 16:00:00 2021-12-27 16:38:33 Outpatient R JUAN MAZARIEGOS [facility] [id number] [facility] 2021-12-25 13:22:11 2021-12-25 23:59:00 Hospital Encounter Maria E Fischer [facility] 1.2.840.114 350.1.13.10 4.2.7.2.686 [id number] [facility] 2021-12-25 13:30:00 2021-12-25 13:45:00 Business Solutions Analyst Visit Pob, [facility] 1.2.840.114 350.1.13.10 4.2.7.2.686 [id number] [facility] 2021-12-25 13:30:00 2021-12-25 13:30:00 Outpatient R MARIA E FISCHER [facility] [id number] [facility] 2021-12-25 13:30:00 2021-12-25 13:30:00 Outpatient R MARIA E FISCHER [facility] [id number] [facility] 2021-12-25 13:30:00 2021-12-25 13:30:00 Outpatient R MARIA E FISCHER [facility] [id number] [facility] 2021-12-25 11:00:00 2021-12-25 12:25:01 Outpatient R MARIA E FISCHER [facility] [id number] [facility] 2021-12-25 11:00:00 2021-12-25 12:25:01 Office Visit [facility] E [facility] 1.2.840.114 350.1.13.10 4.2.7.2.686 [id number] [facility] 2021-12-25 11:00:00 2021-12-25 12:25:01 Outpatient MARIA E TRAN [facility] [id number] [facility] 2021-12-25 00:00:00 2021-12-25 00:00:00 Orders Only Doctor Unassigned, [place] [facility] 1.2.840.114 350.1.13.10 4.2.7.2.686 [id number] [facility] 2021-12-24 16:57:00 2021-12-24 17:41:00 Emergency X NIKKI, K [facility] ERT [id number] [facility] 2021-12-24 16:57:00 2021-12-24 17:41:00 Emergency Jairo Jordan [facility] 1.2.840.114 350.1.13.10 4.2.7.2.686 [id number] [facility] 2021-12-24 16:57:00 2021-12-24 17:41:00 Emergency X NIKKI, K [facility] ERT [id number] [facility] 2021-12-24 16:57:00 2021-12-24 17:41:00 Emergency X NIKKIJairo [facility] ERT [id number] [facility] 2021-12-24 16:57:00 2021-12-24 17:41:00 Emergency X NIKKIJairo [facility] ERT [id number] [facility] 2021-12-24 16:57:00 2021-12-24 17:41:00 Emergency X Jairo JORDAN [facility] ERT [id number] [facility] 2021-12-24 16:57:00 2021-12-24 17:41:00 Emergency X NIKKIJairo [facility] ERT [id number] [facility] 2021-12-21 19:30:00 2021-12-21 22:00:00 Business Solutions Analyst Visit 1, [employer] Sleep Lab Bed Sunshine Klein [facility] 1.0.114 350.1.13.10 4.2.7.2.686 [id number] [facility] 2021-12-21 19:30:00 2021-12-21 19:30:00 Outpatient R ATANASOV, STRAHIL ATANASOV, STRAHIL [facility] [id number] [facility] 2021-12-21 19:30:00 2021-12-21 19:30:00 Outpatient R ATANASOV, STRAHIL ATANASOV, STRAHIL [facility] [id number] [facility] 2021-12-21 19:30:00 2021-12-21 19:30:00 Outpatient R ATANASOV, STRAHIL ATANASOV, STRAHIL [facility] [id number] [facility] 2021-12-21 19:30:00 2021-12-21 19:30:00 Outpatient R ATANASOV, STRAHIL ATANASOV, STRAHIL [facility] [id number] [facility] 2021-12-21 19:30:00 2021-12-21 19:30:00 Outpatient R ATANASOV, STRAHIL ATANASOV, STRAHIL [facility] [id number] [facility] 2021-12-21 00:00:00 2021-12-21 00:00:00 Orders Only Doctor Unassigned, [place] [facility] 1.0.114 350.1.13.10 4.2.7.2.686 [id number] [facility] 2021-12-19 08:00:00 2021-12-19 08:15:00 Laboratory Only Only, [employer] Test SharabundioRebecca [facility] 1.840.114 350.1.13.10 4.2.7.2.686 [id number] [facility] 2021-12-19 08:00:00 2021-12-19 08:00:00 Outpatient REBECCA SAUCEDO [facility] [id number] [facility] 2021-12-19 08:00:00 2021-12-19 08:00:00 Outpatient REBECCA SAUCEDO [facility] [id number] [facility] 2021-12-19 08:00:00 2021-12-19 08:00:00 Outpatient REBECCA SAUCEDO [facility] [id number] [facility] 2021-12-19 00:00:00 2021-12-19 00:00:00 Case Management Kim Jones [facility] 1.840.114 350.1.13.10 4.2.7.2.686 [id number] [facility] 2021-12-19 00:00:00 2021-12-19 00:00:00 Patient Outreach Shahnaz Ulloa [facility] 1.84.114 350.1.13.10 4.2.7.2.686 [id number] [facility] 2021-12-19 00:00:00 2021-12-19 00:00:00 Orders Only Doctor Unassigned, [place] [facility] ..114 350.1.13.10 4.2.7.2.686 [id number] [facility] 2021-12-16 00:00:00 2021-12-16 00:00:00 Transition of Care Page Seth 1..114 350.1.13.10 4.2.7.2.686 [id number] [facility] 2021-12-16 00:00:00 2021-12-16 00:00:00 Telephone Kim Jones [facility] 1.2.840.114 350.1.13.10 4.2.7.2.686 [id number] [facility] 2021-12-12 09:12:00 2021-12-14 15:13:00 Hospital Encounter Mary Reynaga, Bj Mosquera [facility] 1.2.840.114 350.1.13.10 4.2.7.2.686 [id number] [facility] 2021-12-11 11:00:00 2021-12-11 11:47:39 Outpatient Paul SANDERSON [facility] [id number] [facility] 2021-12-11 11:00:00 2021-12-11 11:47:39 Office Visit David Ladd [facility] 1.2.840.114 350.1.13.10 4.2.7.2.686 [id number] [facility] 2021-12-11 11:00:00 2021-12-11 11:47:39 Outpatient Paul SANDERSON [facility] [id number] [facility] 2021-12-11 11:00:00 2021-12-11 11:00:00 Outpatient Paul SANDERSON [facility] [id number] [facility] 2021-12-10 10:08:00 2021-12-10 14:35:00 Emergency X PIA [facility] ERT [id number] [facility] 2021-12-10 10:08:00 2021-12-10 14:35:00 Emergency Pia Watts [facility] 1.2.840.114 350.1.13.10 4.2.7.2.686 [id number] [facility] 2021-12-10 10:08:00 2021-12-10 14:35:00 Emergency X PIA WATTS [facility] ERT [id number] [facility] 2021-12-10 10:08:00 2021-12-10 14:35:00 Emergency X PIA WATTS [facility] ERT [id number] [facility] 2021-12-10 10:08:00 2021-12-10 14:35:00 Emergency X PIA WATTS [facility] ERT [id number] [facility] 2021-12-10 10:08:00 2021-12-10 14:35:00 Emergency X PIA WATTS [facility] ERT [id number] [facility] 2021-12-10 10:08:00 2021-12-10 14:35:00 Emergency X PIA WATTS [facility] ERT [id number] [facility] 2021-12-10 10:08:00 2021-12-10 10:08:00 Emergency X PIA WATTS [facility] ERT [id number] [facility] 2021-12-10 10:08:00 2021-12-10 10:08:00 Emergency X PIA WATTS [facility] ERT [id number] [facility] 2021-12-10 00:00:00 2021-12-10 00:00:00 Telephone Cornelia Sanderson [facility] 1.2.840.114 350.1.13.10 4.2.7.2.686 [id number] [facility] 2021 15:40:00 2021 17:19:00 Outpatient R KIM JONES [facility] [id number] [facility] 2021 15:40:00 2021 17:19:00 Office Visit Kim Jones [facility] 1.2.840.114 350.1.13.10 4.2.7.2.686 [id number] [facility] 2021 15:40:00 2021 17:19:00 [facility] [id number] [facility] 2021 15:40:00 2021 17:19:00 Out[facility] [id number] [facility] 2021 15:40:00 2021 17:19:00 Outpatient [facility] [id number] [facility] 2021 00:00:00 2021 00:00:00 Orders Only Doctor Unassigned, [place] [facility] 1..114 350.1.13.10 4.2.7.2.686 [id number] [facility] 2021-12-03 00:00:00 2021-12-03 00:00:00 Telephone David Ladd [facility] 1..114 350.1.13.10 4.2.7.2.686 [id number] [facility] 2021-12-02 00:00:00 2021-12-02 00:00:00 Transition of Care Page Seth 1..114 350.1.13.10 4.2.7.2.686 [id number] [facility] 2021-11-29 15:25:00 2021-11-30 12:37:00 Outpatient CRISS ALATORRE [facility] [id number] [facility] 2021-11-29 15:25:00 2021-11-30 12:37:00 Emergency Michelle Miranda David [facility] 1..114 350.1.13.10 4.2.7.2.686 [id number] [facility] 2021-11-29 15:25:00 2021-11-30 12:37:00 Outpatient X AUTUMNCRISS [facility] [id number] [facility] 2021-11-29 15:25:00 2021-11-30 12:37:00 Outpatient X AUTUMN CRISS [facility] [id number] [facility] 2021-11-22 00:00:00 2021-11-22 00:00:00 Transition of Care Yvonne Fairbanks [facility] 1.2.840.114 350.1.13.10 4.2.7.2.686 [id number] [facility] 2021-11-19 16:24:00 2021-11-21 12:26:00 Outpatient X BJ WEISS [facility] [id number] [facility] 2021-11-19 16:24:00 2021-11-21 12:26:00 Emergency Henrique Remy Jelani [facility] 1.2.840.114 350.1.13.10 4.2.7.2.686 [id number] [facility] 2021-11-19 16:24:00 2021-11-21 12:26:00 Outpatient X BJ WEISS [facility] [id number] [facility] 2021-11-19 16:24:00 2021-11-21 12:26:00 Outpatient X BJ WEISS [facility] JOANA [id number] [facility] 2021-11-19 16:24:00 2021-11-19 16:24:00 Outpatient X BJ WEISS [facility] [id number] [facility] 2021-11-11 19:30:00 2021-11-11 19:30:00 Outpatient SUNSHINE GALLAGHER STRAHIL [facility] [id number] [facility] 2021-11-08 12:00:00 2021-11-08 12:00:00 Outpatient R [facility] [id number] [facility] 2021-11-08 12:00:00 2021-11-08 12:00:00 Outpatient R [facility] [id number] [facility] 2021-11-05 13:00:00 2021-11-05 13:54:58 Outpatient R KIM JONES [facility] [id number] [facility] 2021-11-05 13:00:00 2021-11-05 13:54:58 Outpatient R KIM JONES [facility] [id number] [facility] 2021-11-05 13:00:00 2021-11-05 13:54:58 Office [facility] .2.840.114 350.1.13.10 4.2.7.2.686 [id number] [facility] 2021-11-05 13:00:00 2021-11-05 13:54:58 Outpatient R KIM JONES [facility] [id number] [facility] 2021-11-05 13:00:00 2021-11-05 13:54:58 Outpatient R KIM JONES [facility] [id number] [facility] 2021-11-05 00:00:00 2021-11-05 00:00:00 Transition of Care Page Seth .[id number] [facility] 2021-11-04 13:45:00 2021-11-04 13:45:00 Outpatient ROBERTO WANG [facility] [id number] [facility] 2021-11-04 13:45:00 2021-11-04 13:45:00 Outpatient R ROBERTO STOKES [facility] [id number] [facility] 2021-11-01 17:38:00 2021-11-04 12:55:00 Inpatient X CRISS LE[facility] [id number] [facility] 2021-11-01 17:38:00 2021-11-04 12:55:00 Hospital Encounter Pia David [facility] [id number] [facility] 2021-11-01 17:38:00 2021-11-04 12:55:00 Inpatient X CRISS LEY[facility] [id number] [facility] 2021-11-01 17:38:00 2021-11-04 12:55:00 Inpatient X CRISS LEYVA [facility] [id number] [facility] 2021-11-01 17:38:00 2021-11-04 12:55:00 Inpatient X CRSIS LEYVA [facility] [id number] [facility] 2021-11-01 17:38:00 2021-11-04 12:55:00 Inpatient X CRISS LEYVA [facility] [id number] [facility] 2021-11-01 17:38:00 2021-11-04 12:55:00 Inpatient X CRISS LEYVA [facility] [id number] [facility] 2021-10-29 11:00:00 2021-10-29 15:29:17 Outpatient ROBERTO WANG [facility] [id number] [facility] 2021-10-29 11:00:00 2021-10-29 15:29:17 Outpatient ROBERTO WANG [facility] [id number] [facility] 2021-10-29 11:00:00 2021-10-29 15:29:17 Outpatient ROBERTO WANG [facility] [id number] [facility] 2021-10-29 11:00:00 2021-10-29 15:29:17 Outpatient R ROBERTO STOKES [facility] [id number] [facility] 2021-10-29 11:00:00 2021-10-29 15:29:17 Outpatient ROBERTO WANG [facility] [id number] [facility] 2021-10-29 11:00:00 2021-10-29 15:29:17 Outpatient ROBERTO WANG [facility] [id number] [facility] 2021-10-29 11:00:00 2021-10-29 11:00:00 Outpatient ROBERTO WANG [facility] [id number] [facility] 2021-10-29 11:00:00 2021-10-29 11:00:00 Outpatient ROBERTO WANG [facility] [id number] [facility] 2021-10-28 00:00:00 2021-10-28 00:00:00 Transition of Care Page Seth 1.2.840.114 350.1.13.10 4.2.7.2.686 [id number] [facility] 2021-10-24 13:43:00 2021-10-26 13:02:00 Inpatient X BJ WEISS [facility] JO[facility] [id number] [facility] 2021-10-24 13:43:00 2021-10-26 13:02:00 Hospital Encounter Michelle Miranda Jelani [facility] 1.2.840.114 350.1.13.10 4.2.7.2.686 [id number] [facility] 2021-10-24 13:43:00 2021-10-26 13:02:00 Inpatient X BJ [facility] JO[facility] [id number] [facility] 2021-10-24 13:43:00 2021-10-26 13:02:00 Inpatient X BJ WE[facility] [id number] [facility] 2021-10-24 13:43:00 2021-10-26 13:02:00 Inpatient X BJ WE[facility] [id number] [facility] 2021-10-24 13:43:00 2021-10-26 13:02:00 Inpatient X BJ [facility] [id number] [facility] 2021-10-24 13:43:00 2021-10-26 13:02:00 Inpatient X BJ WE[facility] [id number] [facility] 2021-10-24 13:43:00 2021-10-26 13:02:00 Inpatient X BJ [facility] [id number] [facility] 2021-10-24 13:43:00 2021-10-26 13:02:00 Inpatient X BJ [facility] [id number] [facility] 2021-10-24 14:00:00 2021-10-24 14:00:00 Outpatient DAVID MATUTE [facility] [id number] [facility] 2021-10-24 00:00:00 2021-10-24 00:00:00 Telephone Kim Jones [facility] 1.2.840.114 350.1.13.10 4.2.7.2.686 [id number] [facility] 2021-10-22 14:30:00 2021-10-22 17:20:56 Ancillary Visit Romel Burns Craig L [facility] 1.2.840.114 350.1.13.10 4.2.7.2.686 [id number] [facility] 2021-10-22 14:30:00 2021-10-22 17:20:56 Outpatient ROBERTO WANG [facility] [id number] [facility] 2021-10-21 00:00:00 2021-10-21 00:00:00 Transition of Care Seth, Page CEE 1.2.840.114 350.1.13.10 4.2.7.2.686 [id number] [facility] 2021-10-18 15:00:00 2021-10-18 15:48:32 Outpatient R KIM JONES [facility] [id number] [facility] 2021-10-18 15:00:00 2021-10-18 15:48:32 Outpatient R KIM JONES [facility] [id number] [facility] 2021-10-18 15:00:00 2021-10-18 15:48:32 Office [facility] 1.2.840.114 350.1.13.10 4.2.7.2.686 [id number] [facility] 2021-10-18 15:00:00 2021-10-18 15:48:32 Outpatient R KIM JONES [facility] [id number] [facility] 2021-10-18 15:00:00 2021-10-18 15:48:32 Outpatient R KIM JONES [facility] [id number] [facility] 2021-10-18 15:00:00 2021-10-18 15:48:32 Outpatient R KIM JONES [facility] [id number] [facility] 2021-10-18 15:00:00 2021-10-18 15:48:32 Outpatient R KIM JONES [facility] [id number] [facility] 2021-10-18 15:00:00 2021-10-18 15:48:32 Outpatient R KIM JONES [facility] [id number] [facility] 2021-10-18 15:00:00 2021-10-18 15:48:32 Outpatient R KIM JONES [facility] [id number] [facility] 2021-10-18 15:00:00 2021-10-18 15:48:32 Outpatient Paul THOMASJONESKIM [facility] [id number] [facility] 2021-10-18 15:00:00 2021-10-18 15:00:00 [facility] [id number] [facility] 2021-10-18 15:00:00 2021-10-18 15:00:00 [facility] [id number] [facility] 2021-10-18 15:00:00 2021-10-18 15:00:00 Outpatient Paul JONES KIM [facility] [id number] [facility] 2021-10-18 15:00:00 2021-10-18 15:00:00 Outpatient Paul JONES KIM [facility] [id number] [facility] 2021-10-17 14:34:00 2021-10-18 13:05:00 Hospital Encounter Debby Brown Jelani [facility] 1.2.840.114 350.1.13.10 4.2.7.2.686 [id number] [facility] 2021-10-16 11:00:00 2021-10-16 11:57:33 Outpatient R SUNSHINE KLEIN STRAHIL [facility] [id number] [facility] 2021-10-16 11:00:00 2021-10-16 11:57:33 Outpatient R SUNSHINE KLEIN STRAHIL [facility] [id number] [facility] 2021-10-16 11:00:00 2021-10-16 11:57:33 Outpatient R LEANNA KLEINL BARTOLOME STRAHIL [facility] [id number] [facility] 2021-10-16 11:00:00 2021-10-16 11:20:00 Office Visit Sunshine Klein [facility] 1.2840.114 350.1.13.10 4.2.7.2.686 [id number] [facility] 2021-10-16 11:00:00 2021-10-16 11:00:00 Outpatient R SUNSHINE KLEIN STRAHIL [facility] [id number] [facility] 2021-10-14 00:00:00 2021-10-14 00:00:00 Patient Outreach Austin Perez 1.20.114 350.1.13.10 4.2.7.2.686 [id number] [facility] 2021-10-10 00:00:00 2021-10-10 00:00:00 Patient Outreach Austin Perez 1.20.114 350.1.13.10 4.2.7.2.686 [id number] [facility] 2021-10-09 00:00:00 2021-10-09 00:00:00 Patient Outreach Shahnaz Ulloa [facility] 1.20.114 350.1.13.10 4.2.7.2.686 [id number] [facility] 2021-10-09 00:00:00 2021-10-09 00:00:00 Transition of Care Page Seth 1.20.114 350.1.13.10 4.2.7.2.686 [id number] [facility] 2021-10-09 00:00:00 2021-10-09 00:00:00 Orders Only Doctor Unassigned, [place] [facility] 1.2.114 350.1.13.10 4.2.7.2.686 [id number] [facility] 2021-10-06 23:39:00 2021-10-08 17:40:00 Hospital Encounter Mary Reynaga, [place] [facility] 1.2.840.114 350.1.13.10 4.2.7.2.686 [id number] [facility] 2021-10-06 23:39:00 2021-10-08 17:40:00 Inpatient X MICHAELSHANELOH [facility] [id number] [facility] 2021-10-06 23:39:00 2021-10-08 17:40:00 Inpatient X OH ESPINOZA [facility] [id number] [facility] 2021-10-06 23:39:00 2021-10-08 17:40:00 Inpatient X [place] ESPINOZA [facility] [id number] [facility] 2021-10-06 23:39:00 2021-10-08 17:40:00 Inpatient X [place] ESPINOZA [facility] [id number] [facility] 2021-10-06 23:39:00 2021-10-08 17:40:00 Inpatient X MICHAELSHANELOH [facility] [id number] [facility] 2021-10-08 11:30:00 2021-10-08 11:30:00 Outpatient R ALICIA TELLEZ ELENITA [facility] [id number] [facility] 2021-10-08 11:30:00 2021-10-08 11:30:00 Outpatient ALICIA SMITH ELENITA [facility] [id number] [facility] 2021-10-08 11:30:00 2021-10-08 11:30:00 Outpatient ALICIA SMITH ELENITA [facility] [id number] [facility] 2021-10-08 11:30:00 2021-10-08 11:30:00 Outpatient ALICIA SMITH ELENITA [facility] [id number] [facility] 2021-10-08 00:00:00 2021-10-08 00:00:00 David Rodriguez [facility] LENORE LIMA [facility] 1.2.840.114 350.1.13.10 4.2.7.2.686 [id number] [facility] 2021-10-04 00:00:00 2021-10-04 00:00:00 Transition of Care Page Seth SILVIA CEE 1.2.840.114 350.1.13.10 4.2.7.2.686 [id number] [facility] 2021-10-02 16:53:00 2021-10-03 16:58:00 Hospital Encounter Jairo Jordan Anand Vilaschandr a [facility] 1.2.840.114 350.1.13.10 4.2.7.2.686 [id number] [facility] 2021-10-02 16:53:00 2021-10-03 16:58:00 Outpatient U RAFY UGARTE [facility] KELY [id number] [facility] 2021-10-02 16:53:00 2021-10-03 16:58:00 Outpatient U RAFY UGARTE [facility] KELY [id number] [facility] 2021-10-02 16:53:00 2021-10-03 16:58:00 Outpatient U RAFY UGARTE [facility] KELY [id number] [facility] 2021-10-02 16:53:00 2021-10-03 16:58:00 Outpatient U RAFY UGARTE [facility] KELY [id number] [facility] 2021-10-02 16:53:00 2021-10-02 16:53:00 Outpatient U RAFY UGARTE [facility] KELY [id number] [facility] 2021-10-02 16:00:00 2021-10-02 16:50:02 Outpatient R BROOKS BARKER BROOKS [facility] KELY [id number] [facility] 2021-10-02 16:00:00 2021-10-02 16:50:02 Office Visit Mj Kingloydaaris [facility] ..840.114 350.1.13.10 4.2.7.2.686 [id number] [facility] 2021-10-02 16:00:00 2021-10-02 16:50:02 Outpatient R MJ JOIEDonnieVeronique XAVIERMJ, BROOKS [facility] [id number] [facility] 2021-10-02 16:00:00 2021-10-02 16:50:02 Outpatient R MJ JOIEDonnieVeronique CASEYTREVOR BROOKS [facility] KELY [id number] [facility] 2021-10-02 16:00:00 2021-10-02 16:00:00 Outpatient R MJ JOIEDonnieVeronique CASEYTREVOR BROOKS [facility] [id number] [facility] 2021-10-01 00:00:00 2021-10-01 00:00:00 Transition of Care Page Seth ..840.114 350.1.13.10 4.2.7.2.686 [id number] [facility] 2021-09-28 06:53:00 2021-09-29 16:50:00 Outpatient CRISS ALATORRE [facility] [id number] [facility] 2021-09-28 06:53:00 2021-09-29 16:50:00 Emergency [facility] ..840.114 350.1.13.10 4.2.7.2.686 [id number] [facility] 2021-09-28 06:53:00 2021-09-29 16:50:00 Outpatient X CRISS LEYVA [facility] [id number] [facility] 2021-09-24 00:00:00 2021-09-24 00:00:00 Transition of Care Page Seth 1.2.840.114 350.1.13.10 4.2.7.2.686 [id number] [facility] 2021-09-21 07:09:00 2021-09-22 13:50:00 Inpatient X OH ESPINOZA [facility] [id number] [facility] 2021-09-21 07:09:00 2021-09-22 13:50:00 Hospital Encounter Michelle Miranda [facility] .2.840.114 350.1.13.10 4.2.7.2.686 [id number] [facility] 2021-09-21 07:09:00 2021-09-22 13:50:00 Inpatient X OH ESPINOZA [facility] [id number] [facility] 2021-09-21 07:09:00 2021-09-22 13:50:00 Inpatient OH WITT [facility] JO[facility] [id number] [facility] 2021-09-21 07:09:00 2021-09-22 13:50:00 Inpatient OH WITT [facility] JO[facility] [id number] [facility] 2021-09-21 07:09:00 2021-09-22 13:50:00 Inpatient OH WITT [facility] [id number] [facility] 2021-09-21 07:09:00 2021-09-22 13:50:00 Inpatient X OH ESPINOZA [facility] [id number] [facility] 2021-09-21 07:09:00 2021-09-22 13:50:00 Inpatient X OH ESPINOZA [facility] [id number] [facility] 2021-09-21 07:09:00 2021-09-22 13:50:00 Inpatient X [place] ESPINOZA [facility] [id number] [facility] 2021-09-20 06:50:00 2021-09-20 15:00:00 Hospital Encounter Judi, [facility] 1.840.114 350.1.13.10 4.2.7.2.686 [id number] [facility] 2021-09-20 06:50:00 2021-09-20 15:00:00 [facility] [id number] [facility] 2021-09-20 06:50:00 2021-09-20 15:00:00 [facility] [id number] [facility] 2021-09-20 06:39:38 2021-09-20 06:49:00 Outpatient R UNKNOWN, ATTENDING [facility] [id number] [facility] 2021-09-20 06:39:38 2021-09-20 06:49:00 Hospital Encounter Unknown, Attending [facility] 1..840.114 350.1.13.10 4.2.7.2.686 [id number] [facility] 2021-09-20 06:39:38 2021-09-20 06:49:00 Outpatient R UNKNOWN, ATTENDING [facility] JO[facility] [id number] [facility] 2021-09-20 00:00:00 2021-09-20 00:00:00 Telephone Juan Mazariegos [facility] 1..840.114 350.1.13.10 4.2.7.2.686 [id number] [facility] 2021-09-20 00:00:00 2021-09-20 00:00:00 Telephone Kim Jones [facility] N[facility] 1..840.114 350.1.13.10 4.2.7.2.686 [id number] [facility] 2021-09-20 00:00:00 2021-09-20 00:00:00 Telephone Nicolás Ma Juan Pulido [facility] 1..840.114 350.1.13.10 4.2.7.2.686 [id number] [facility] 2021-09-19 00:00:00 2021-09-19 00:00:00 Telephone [facility] 1..840.114 350.1.13.10 4.2.7.2.686 [id number] [facility] 2021-09-17 11:20:00 2021-09-17 11:20:00 Outpatient LORETA WILL [facility] [id number] [facility] 2021-09-17 11:20:00 2021-09-17 11:20:00 Outpatient Paul LESTER LORETA [facility] [id number] [facility] 2021-09-17 11:20:00 2021-09-17 11:20:00 Outpatient LORETA WILL [facility] [id number] [facility] 2021-09-17 11:20:00 2021-09-17 11:20:00 Outpatient Paul LESTER LORETA [facility] [id number] [facility] 2021-09-17 11:20:00 2021-09-17 11:20:00 Outpatient Paul LESTER LORETA [facility] [id number] [facility] 2021-09-16 11:54:00 2021-09-16 16:20:00 Emergency Mary Reynaga [facility] 1..840.114 350.1.13.10 4.2.7.2.686 [id number] [facility] 2021-09-16 11:30:00 2021-09-16 13:55:07 Outpatient R BROOKS BARKER OGECHUKWU [facility] ERT [id number] [facility] 2021-09-16 11:30:00 2021-09-16 13:55:07 Office Visit Brooks Barker [facility] N[facility] 1..840.114 350.1.13.10 4.2.7.2.686 [id number] [facility] 2021-09-16 11:30:00 2021-09-16 13:55:07 Outpatient R BROOKS BARKER OGECHUKWU [facility] E[facility] [id number] [facility] 2021-09-16 11:30:00 2021-09-16 11:30:00 Outpatient R BROOKS BARKER OGECHUKWU [facility] [id number] [facility] 2021-09-13 00:00:00 2021-09-13 00:00:00 Telephone Gino Rico [facility] 1.2.840.114 350.1.13.10 4.2.7.2.686 [id number] [facility] 2021-09-09 11:03:00 2021-09-09 17:12:00 Emergency X Jairo JORDAN [facility] [id number] [facility] 2021-09-09 11:03:00 2021-09-09 17:12:00 Emergency Jairo Jordan [facility] 1..840.114 350.1.13.10 4.2.7.2.686 [id number] [facility] 2021-09-09 11:03:00 2021-09-09 17:12:00 Emergency X NIKKI, K [facility] E[facility] [id number] [facility] 2021-09-09 11:03:00 2021-09-09 17:12:00 Emergency X Jairo JORDAN [facility] ERT [id number] [facility] 2021-09-09 00:00:00 2021-09-09 00:00:00 Telephone Juan Mazariegos [facility] 1.840.114 350.1.13.10 4.2.7.2.686 [id number] [facility] 2021-09-07 09:04:00 2021-09-07 13:57:00 Emergency X JUHISINTIARA [facility] [id number] [facility] 2021-09-07 09:04:00 2021-09-07 13:57:00 Emergency Mary Reynaga [facility] 1.840.114 350.1.13.10 4.2.7.2.686 [id number] [facility] 2021-09-07 09:04:00 2021-09-07 13:57:00 Emergency MARY MARKHAM [facility] [id number] [facility] 2021-09-07 00:00:00 2021-09-07 00:00:00 Nurse Triage Macy Degroot [facility] 1.840.114 350.1.13.10 4.2.7.2.686 [id number] [facility] 2021-09-06 00:00:00 2021-09-06 00:00:00 Telephone Gino Rico [facility] 1.840.114 350.1.13.10 4.2.7.2.686 [id number] [facility] 2021-09-06 00:00:00 2021-09-06 00:00:00 Telephone Kim Jones [facility] 1.2.840.114 350.1.13.10 4.2.7.2.686 [id number] [facility] 2021-09-06 00:00:00 2021-09-06 00:00:00 Orders Only Doctor Unassigned, [place] [facility] 1.2.840.114 350.1.13.10 4.2.7.2.686 [id number] [facility] 2021-09-05 13:00:00 2021-09-05 13:58:09 Outpatient R KIM JONES [facility] [id number] [facility] 2021-09-05 13:00:00 2021-09-05 13:58:09 Outpatient R KIM JONES [facility] [id number] [facility] 2021-09-05 13:00:00 2021-09-05 13:58:09 Office Visit Kim Jones [facility] NAL BUILDING 1.2.840.114 350.1.13.10 4.2.7.2.686 [id number] [facility] 2021-09-05 13:00:00 2021-09-05 13:58:09 Outpatient R KIM JONES [facility] [id number] [facility] 2021-09-05 13:00:00 2021-09-05 13:58:09 Outpatient R KIM JONES [facility] [id number] [facility] 2021-09-05 13:00:00 2021-09-05 13:58:09 Outpatient R KIM JONES [facility] [id number] [facility] 2021-09-05 13:00:00 2021-09-05 13:00:00 Outpatient R KIM JONES [facility] [id number] [facility] 2021-09-04 00:00:00 2021-09-04 00:00:00 Transition of Care Page Seth 1.2.840.114 350.1.13.10 4.2.7.2.686 [id number] [facility] 2021-09-03 00:00:00 2021-09-03 00:00:00 Transition of Care Page Seth 1.2.840.114 350.1.13.10 4.2.7.2.686 [id number] [facility] 2021-08-28 17:20:00 2021-09-02 13:00:00 Hospital Encounter Michelle Miranda Joseph Abu Athershanel, [facility] 1.2.840.114 350.1.13.10 4.2.7.2.686 [id number] [facility] 2021-08-28 17:20:00 2021-09-02 13:00:00 Inpatient X [facility] JO[facility] [id number] [facility] 2021-08-28 17:20:00 2021-09-02 13:00:00 Inpatient X KALEN SOTO [facility] JOANA [id number] [facility] 2021-08-31 00:00:00 2021-08-31 00:00:00 Telephone [facility] 1.2.840.114 350.1.13.10 4.2.7.2.686 [id number] [facility] 2021-08-31 00:00:00 2021-08-31 00:00:00 Telephone [facility] 1.2.840.114 350.1.13.10 4.2.7.2.686 [id number] [facility] 2021-08-30 14:30:00 2021-08-30 14:30:00 Outpatient R JUAN MAZARIEGOS [facility] [id number] [facility] 2021-08-28 16:30:00 2021-08-28 17:14:19 Outpatient R BROOKS BARKER, BROOKS [facility] [id number] [facility] 2021-08-28 16:30:00 2021-08-28 17:14:19 Outpatient R JOIE BARKERDonnieVeronique XAVIERMJ, BROOKS [facility] ERT [id number] [facility] 2021-08-28 16:30:00 2021-08-28 17:14:19 Office Visit King Barkerlarryjoe [facility] 1.2.840.114 350.1.13.10 4.2.7.2.686 [id number] [id number] [facility] 2021-08-28 16:30:00 2021-08-28 17:14:19 Outpatient R JOIE BARKERDonnieVeronique BARKER, [place] [facility] [id number] [facility] 2021-08-28 16:30:00 2021-08-28 17:14:19 Outpatient R JOIE BARKERDonnieVeronique CASEYKE, [place] [facility] JOANA [id number] [facility] 2021-08-28 16:30:00 2021-08-28 17:14:19 Outpatient R JOIE BARKERDonnieVeronique XAVIERMJ, [place] [facility] JOANA [id number] [facility] 2021-08-28 16:30:00 2021-08-28 17:14:19 Outpatient R MJ, JOIEARIS MJ, OGLOYDADonnieU [facility] [id number] [facility] 2021-08-28 16:30:00 2021-08-28 17:14:19 Outpatient R MJ JOIEARIS BARKER, JOIEDonnieU [facility] [id number] [facility] 2021-08-28 16:30:00 2021-08-28 17:14:19 Outpatient R BROOKS BARKER BROOKS [facility] [id number] [facility] 2021-08-28 16:30:00 2021-08-28 17:14:19 Outpatient R BROOKS BARKER BROOKS [facility] [id number] [facility] 2021-08-28 16:30:00 2021-08-28 17:14:19 Outpatient R BROOKS BARKER OGECHUKWU [facility] [id number] [facility] 2021-08-28 00:00:00 2021-08-28 00:00:00 Telephone Kim Jones [facility] 1.840.114 350.1.13.10 4.2.7.2.686 [id number] [facility] 2021-08-28 00:00:00 2021-08-28 00:00:00 Patient Outreach Shahnaz Ulloa [facility] [id number] [id number] [id number] [id number] 231 [id number] [facility] 2021-08-27 00:00:00 2021-08-27 00:00:00 Transition of Care Page Seth [id number] [id number] [id number] [facility] 2021-08-27 00:00:00 2021-08-27 00:00:00 Orders Only Doctor Unassigned, [place] [facility] [id number] [id number] [id number] [id number] [facility] 2021-08-22 22:10:00 2021-08-26 10:50:00 Inpatient X [place] ESP[place] [facility] [id number] [facility] 2021-08-22 22:10:00 2021-08-26 10:50:00 Inpatient X [place] [facility] [id number] [facility] 2021-08-22 22:10:00 2021-08-26 10:50:00 Inpatient X [place] [facility] [id number] [place] [facility]22 22:10:00 2021-08-26 10:50:00 Inpatient X [place] ESPINOZA [facility] [id number] [facility] 2021-08-22 22:10:00 2021-08-26 10:50:00 Inpatient X [place] ESP[place] [facility] [id number] [facility] 2021-08-22 22:10:00 2021-08-26 10:50:00 Inpatient X [place] ESP[place] [facility] [id number] [facility] 2021-08-22 22:10:00 2021-08-26 10:50:00 Hospital Encounter Taz Vergara, Oh Parker [facility] 1..840.114 350.1.13.10 4.2.7.2.686 [id number] [facility] 2021-08-26 00:00:00 2021-08-26 00:00:00 Outpatient R FERNANDA STEPHENS [facility] [id number] [facility] 2021-08-26 00:00:00 2021-08-26 00:00:00 Telephone Juan [facility] 1..840.114 350.1.13.10 4.2.7.2.686 [id number] [facility] 2021-08-23 08:50:00 2021-08-23 08:50:00 Outpatient MOHSEN LEOS [facility] [id number] [facility] 2021-08-23 08:50:00 2021-08-23 08:50:00 Outpatient MOHSEN LEOS [facility] [id number] [facility] 2021-08-23 08:50:00 2021-08-23 08:50:00 [facility] [id number] [facility] 2021-08-23 08:50:00 2021-08-23 08:50:00 Outpatient MOHSEN LEOS [facility] [id number] [facility] 2021-08-23 08:50:00 2021-08-23 08:50:00 [facility] [id number] [facility] 2021-08-23 08:50:00 2021-08-23 08:50:00 Outpatient MOHSEN LEOS [facility] [id number] [facility] 2021-08-23 08:50:00 2021-08-23 08:50:00 [facility] [id number] [facility] 2021-08-23 08:50:00 2021-08-23 08:50:00 [facility] [id number] [facility] 2021-08-20 00:00:00 2021-08-20 00:00:00 Transition of Care Page Seth 1.2.840.114 350.1.13.10 4.2.7.2.686 [id number] [facility] 2021-08-13 18:42:00 2021-08-16 11:20:00 Inpatient X BJ WEISS [facility] [id number] [facility] 2021-08-13 18:42:00 2021-08-16 11:20:00 Inpatient X BJ WEISS [facility] [id number] [facility] 2021-08-13 18:42:00 2021-08-16 11:20:00 Inpatient X BJ WEISS [facility] JO[facility] [id number] [facility] 2021-08-13 18:42:00 2021-08-16 11:20:00 [facility] [id number] [facility] 2021-08-13 18:42:00 2021-08-16 11:20:00 Hospital Encounter Marisa Remyblaire Espinoza, Bj Mosquera [facility] 1.2.840.114 350.1.13.10 4.2.7.2.686 [id number] [facility] 2021-08-14 14:45:00 2021-08-14 14:45:00 Outpatient ROBERTO WANG [facility] [id number] [facility] 2021-08-14 14:45:00 2021-08-14 14:45:00 Outpatient ROBERTO WANG [facility] [id number] [facility] 2021-08-14 14:45:00 2021-08-14 14:45:00 Outpatient ROBERTO WANG [facility] [id number] [facility] 2021-08-14 14:45:00 2021-08-14 14:45:00 Outpatient ROBERTO WANG [facility] [id number] [facility] 2021-08-14 14:45:00 2021-08-14 14:45:00 Outpatient ROBERTO WANG [facility] [id number] [facility] 2021-08-14 14:45:00 2021-08-14 14:45:00 Outpatient ROBERTO WANG [facility] [id number] [facility] 2021-08-14 14:45:00 2021-08-14 14:45:00 Outpatient ROBERTO WNAG [facility] [id number] [facility] 2021-08-14 14:45:00 2021-08-14 14:45:00 Outpatient R ROBERTO STOKES [facility] [id number] [facility] 2021-08-14 00:00:00 2021-08-14 00:00:00 Telephone Jaun [facility]azariegos [facility] 1.2.840.114 350.1.13.10 4.2.7.2.686 [id number] [facility] 2021-08-12 15:00:00 2021-08-12 15:56:28 Outpatient R BROOKS BARKER OGECHUKWU [facility] [id number] [facility] 2021-08-12 15:00:00 2021-08-12 15:56:28 Outpatient R BROOKS BARKER OGECHCANU [facility] [id number] [facility] 2021-08-12 15:00:00 2021-08-12 15:56:28 Outpatient R BROOKS BARKER OGECHCANU [facility] [id number] [facility] 2021-08-12 15:00:00 2021-08-12 15:56:28 Outpatient R BROOKS BARKER OGECHCANU [facility] [id number] [facility] 2021-08-12 15:00:00 2021-08-12 15:56:28 Outpatient R BROOKS BARKER OGECHUKDonnieU [facility] [id number] [facility] 2021-08-12 15:00:00 2021-08-12 15:56:28 Outpatient R BROOKS BRAKER OGECHCANU [facility] [id number] [facility] 2021-08-12 15:00:00 2021-08-12 15:56:28 Outpatient R BROOKS BARKER OGECHUKWU [facility] [id number] [facility] 2021-08-12 15:00:00 2021-08-12 15:56:28 Office Visit [facility] 1..840.114 350.1.13.10 4.2.7.2.686 [id number] [facility] 2021-08-09 00:00:00 2021-08-09 00:00:00 Kim Anaya [facility] 1..840.114 350.1.13.10 4.2.7.2.686 [id number] [facility] 2021-08-07 14:30:00 2021-08-07 14:30:00 Outpatient R ROBERTO STOKES [facility] [id number] [facility] 2021-08-07 00:00:00 2021-08-07 00:00:00 Transition of Care Page Seth 1..840.114 350.1.13.10 4.2.7.2.686 [id number] [facility] 2021-08-04 16:37:00 2021-08-06 15:45:00 Inpatient X CRISS LEYVA [facility] [id number] [facility] 2021-08-04 16:37:00 2021-08-06 15:45:00 Inpatient X CRISS LEYVA [facility] [id number] [facility] 2021-08-04 16:37:00 2021-08-06 15:45:00 Inpatient X CRISS LEYVA [facility] [id number] [facility] 2021-08-04 16:37:00 2021-08-06 15:45:00 Hospital Encounter Destiny Gomez David [facility] 1.2.840.114 350.1.13.10 4.2.7.2.686 [id number] [facility] 2021-08-04 16:37:00 2021-08-06 15:45:00 Inpatient X AUTUMN CRISS [facility] [id number] [facility] 2021-08-04 16:37:00 2021-08-06 15:45:00 Inpatient X CRISS LEYVA [facility] [id number] [facility] 2021-08-04 16:37:00 2021-08-04 16:37:00 Inpatient X CRISS LEYVA [facility] [id number] [facility] 2021-08-02 09:50:00 2021-08-02 09:50:00 Outpatient MOHSEN LEOS [facility] [id number] [facility] 2021-08-02 09:50:00 2021-08-02 09:50:00 Imm/Inj Visit Nurse, Adc Pob Immunizatio Mohsen Downs [address].840.114 350.1.13.10 4.2.7.2.686 [id number] [facility] 2021-08-02 09:50:00 2021-08-02 09:45:35 Outpatient MOHSEN LEOS [facility] [id number] [facility] 2021-08-02 09:50:00 2021-08-02 09:45:35 Outpatient MOHSEN LEOS [facility] [id number] [facility] 2021-08-02 09:50:00 2021-08-02 09:45:35 Outpatient MOHSEN LEOS [facility] [id number] [facility] 2021-08-02 09:50:00 2021-08-02 09:45:35 Outpatient MOHSEN LEOS [facility] [id number] [facility] 2021-08-02 09:50:00 2021-08-02 09:45:35 Outpatient MOHSEN LEOS [facility] [id number] [facility] 2021-08-02 09:50:00 2021-08-02 09:45:35 [facility] [id number] [facility] 2021-08-02 09:50:00 2021-08-02 09:45:35 [facility] [id number] [facility] 2021-08-02 09:50:00 2021-08-02 09:45:35 Outpatient Paul VASQUES [facility] [id number] [facility] 2021-08-01 00:00:00 2021-08-01 00:00:00 Telephone [facility] 1.2.840.114 350.1.13.10 4.2.7.2.686 [id number] [facility] 2021-07-31 15:00:00 2021-07-31 15:00:00 Outpatient R ROBERTO STOKES [facility] [id number] [facility] 2021-07-31 15:00:00 2021-07-31 15:00:00 Outpatient ROBERTO WANG [facility] [id number] [facility] 2021-07-30 07:42:00 2021-07-30 08:48:00 Emergency X PIA WATTS [facility] [id number] [facility] 2021-07-30 07:42:00 2021-07-30 08:48:00 Emergency X PIA WATTS [facility] [id number] [facility] 2021-07-30 07:42:00 2021-07-30 08:48:00 Emergency X PIA WATTS [facility] [id number] [facility] 2021-07-30 07:42:00 2021-07-30 08:48:00 Emergency X PIA WATTS [facility] [id number] [facility] 2021-07-30 07:42:00 2021-07-30 08:48:00 Emergency X PIA WATTS [facility] [id number] [facility] 2021-07-30 07:42:00 2021-07-30 08:48:00 Emergency Pia Watts [facility] 1.2.840.114 350.1.13.10 4.2.7.2.686 [id number] [facility] 2021-07-30 07:42:00 2021-07-30 08:48:00 Emergency X PIA WATTS [facility] [id number] [facility] 2021-07-29 20:51:00 2021-07-29 23:32:00 Emergency X DEBBY BROWN [facility] [id number] [facility] 2021-07-29 20:51:00 2021-07-29 23:32:00 Emergency X DEBBY BROWN [facility] [id number] [facility] 2021-07-29 20:51:00 2021-07-29 23:32:00 Emergency Debby Brown [facility] 1.2.840.114 350.1.13.10 4.2.7.2.686 [id number] [facility] 2021-07-29 20:51:00 2021-07-29 23:32:00 Emergency X DEBBY BROWN [facility] [id number] [facility] 2021-07-29 00:00:00 2021-07-29 00:00:00 Nurse Triage Adilene Dumas [facility] 1.2.840.114 350.1.13.10 4.2.7.2.686 [id number] [facility] 2021-07-28 13:37:00 2021-07-28 17:00:00 Emergency X DEBBY BROWN [facility] [id number] [facility] 2021-07-28 13:37:00 2021-07-28 17:00:00 Emergency X BROWN, DEBBY [facility] [id number] [facility] 2021-07-28 13:37:00 2021-07-28 17:00:00 Emergency BrownDebby castillo S [facility] 1.2.840.114 350.1.13.10 4.2.7.2.686 [id number] [facility] 2021-07-28 13:37:00 2021-07-28 17:00:00 Emergency X BROWN, DEBBY [facility] [id number] [facility] 2021-07-27 00:00:00 2021-07-27 00:00:00 Nurse Triage Fermin [facility] 1..840.114 350.1.13.10 4.2.7.2.686 [id number] [facility] 2021-07-25 00:00:00 2021-07-25 00:00:00 Transition of Care Page Seth [place] 1.2.840.114 350.1.13.10 4.2.7.2.686 [id number] [facility] 2021-07-25 00:00:00 2021-07-25 00:00:00 Telephone Kim [facility] 1.2.840.114 350.1.13.10 4.2.7.2.686 [id number] [facility] 2021-07-24 16:12:00 2021-07-24 16:59:00 Emergency X PIA WATTS [facility] [id number] [facility] 2021-07-24 16:12:00 2021-07-24 16:59:00 Emergency X PIA WATTS [facility] [id number] [facility] 2021-07-24 16:12:00 2021-07-24 16:59:00 Emergency X PIA WATTS [facility] [id number] [facility] 2021-07-24 16:12:00 2021-07-24 16:59:00 Emergency X PIA WATTS [facility] [id number] [facility] 2021-07-24 16:12:00 2021-07-24 16:59:00 Emergency X PIA WATTS [facility] [id number] [facility] 2021-07-24 16:12:00 2021-07-24 16:59:00 Emergency X PIA WATTS [facility] [id number] [facility] 2021-07-24 16:12:00 2021-07-24 16:59:00 Emergency X PIA WATTS [facility] [id number] [facility] 2021-07-24 16:12:00 2021-07-24 16:59:00 Emergency Pia Watts [facility] 1.2.840.114 350.1.13.10 4.2.7.2.686 [id number] [facility] 2021-07-22 11:38:00 2021-07-24 13:01:00 Outpatient X BJ WEISS [facility] [id number] [facility] 2021-07-22 11:38:00 2021-07-24 13:01:00 Outpatient X BJ WEISS [facility] [id number] [facility] 2021-07-22 11:38:00 2021-07-24 13:01:00 Emergency Karine LojaBj gomez [facility] 1.2.840.114 350.1.13.10 4.2.7.2.686 [id number] [facility] 2021-07-22 11:38:00 2021-07-24 13:01:00 Outpatient X BJ WEISS [facility] JAONA [id number] [facility] 2021-07-22 11:38:00 2021-07-22 11:38:00 Emergency X KARINE LOJA [facility] [id number] [facility] 2021-07-22 00:00:00 2021-07-22 00:00:00 Telephone Robert [facility] 1.2.840.114 350.1.13.10 4.2.7.2.686 [id number] [facility] 2021-07-19 14:30:00 2021-07-19 14:31:55 Outpatient R JUAN MAZARIEGOS [facility] [id number] [facility] 2021-07-19 14:30:00 2021-07-19 14:31:55 Outpatient R JUAN MAZARIEGOS [facility] [id number] [facility] 2021-07-19 14:30:00 2021-07-19 14:31:55 Outpatient R JUAN MAZARIEGOS [facility] [id number] [facility] 2021-07-19 14:30:00 2021-07-19 14:31:55 Outpatient R JUAN MAZARIEGOS [facility] [id number] [facility] 2021-07-19 14:30:00 2021-07-19 14:31:55 Outpatient R JUAN MAZARIEGOS [facility] [id number] [facility] 2021-07-19 14:30:00 2021-07-19 14:31:55 Outpatient R JUAN MAZARIEGOS [facility] [id number] [facility] 2021-07-19 14:30:00 2021-07-19 14:31:55 Outpatient R JUAN MAZARIEGOS [facility] [id number] [facility] 2021-07-19 14:30:00 2021-07-19 14:31:55 Outpatient R JUAN MAZARIEGOS [facility] [id number] [facility] 2021-07-19 14:30:00 2021-07-19 14:31:55 Outpatient R JUAN MAZARIEGOS [facility] [id number] [facility] 2021-07-19 14:30:00 2021-07-19 14:31:55 Outpatient R JUAN MAZARIEGOS [facility] [id number] [facility] 2021-07-19 14:30:00 2021-07-19 14:31:55 Office Visit Juan [facility] 1.840.114 350.1.13.10 4.2.7.2.686 [id number] [facility] 2021-07-19 14:30:00 2021-07-19 14:31:55 Outpatient R JUAN MAZARIEGOS [facility] [id number] [facility] 2021-07-19 14:30:00 2021-07-19 14:31:55 Outpatient R JUAN MAZARIEGOS [facility] [id number] [facility] 2021-07-19 00:00:00 2021-07-19 00:00:00 Telephone Juan Mazariegos [facility] 1.840.114 350.1.13.10 4.2.7.2.686 [id number] [facility] 2021-07-19 00:00:00 2021-07-19 00:00:00 Telephone Juan Mazariegos [facility] 1..840.114 350.1.13.10 4.2.7.2.686 [id number] [facility] 2021-07-17 22:49:00 2021-07-18 00:38:00 Emergency X LUIS ANGEL JIMENEZ [facility] [id number] [facility] 2021-07-17 22:49:00 2021-07-18 00:38:00 Emergency X LUIS ANGEL JIMENEZ [facility] [id number] [facility] 2021-07-17 22:49:00 2021-07-18 00:38:00 Emergency Luis Angel Jimenez [facility] 1.0.114 350.1.13.10 4.2.7.2.686 [id number] [facility] 2021-07-17 22:49:00 2021-07-18 00:38:00 Emergency X LUIS ANGEL JIMENEZ [facility] [id number] [facility] 2021-07-17 00:00:00 2021-07-17 00:00:00 Telephone Juan [facility]azariegos [facility] 1..114 350.1.13.10 4.2.7.2.686 [id number] [facility] 2021-07-17 00:00:00 2021-07-17 00:00:00 Telephone Kim Jones [facility] 1..114 350.1.13.10 4.2.7.2.686 [id number] [facility] 2021-07-17 00:00:00 2021-07-17 00:00:00 Transition of Care Yvonne Fairbanks 1.0.114 350.1.13.10 4.2.7.2.686 [id number] [facility] 2021-07-14 18:17:00 2021-07-16 10:24:00 Outpatient X BJ WEISS [facility] [id number] [facility] 2021-07-14 18:17:00 2021-07-16 10:24:00 Outpatient X BJ WEISS [facility] [id number] [facility] 2021-07-14 18:17:00 2021-07-16 10:24:00 Outpatient X BJ WEISS [facility] [id number] [facility] 2021-07-14 18:17:00 2021-07-16 10:24:00 Outpatient X BJ WEISS [facility] [id number] [facility] 2021-07-14 18:17:00 2021-07-16 10:24:00 Outpatient X BJ WEISS [facility] [id number] [facility] 2021-07-14 18:17:00 2021-07-16 10:24:00 Outpatient X BJ WEISS [facility] [id number] [facility] 2021-07-14 18:17:00 2021-07-16 10:24:00 Outpatient X BJ WEISS [facility] [id number] [facility] 2021-07-14 18:17:00 2021-07-16 10:24:00 Outpatient X BJ WEISS [facility] [id number] [facility] 2021-07-14 18:17:00 2021-07-16 10:24:00 Outpatient X BJ WEISS [facility] [id number] [facility] 2021-07-14 18:17:00 2021-07-16 10:24:00 Outpatient X BJ WEISS [facility] [id number] [facility] 2021-07-14 18:17:00 2021-07-16 10:24:00 Hospital Encounter Destiny [facility] 1.2.840.114 350.1.13.10 4.2.7.2.686 [id number] [facility] 2021-07-14 18:17:00 2021-07-16 10:24:00 Outpatient X BJ WEISS [facility] [id number] [facility] 2021-07-14 18:17:00 2021-07-16 10:24:00 Outpatient X BJ WEISS [facility] [id number] [facility] 2021-07-14 18:17:00 2021-07-14 18:17:00 Outpatient X BJ WEISS [facility] [id number] [facility] 2021-07-09 14:00:00 2021-07-09 14:00:00 Outpatient Paul MAJUAN [facility] [id number] [facility] 2021-07-09 14:00:00 2021-07-09 14:00:00 Outpatient Paul MAJUAN [facility] [id number] [facility] 2021-07-09 14:00:00 2021-07-09 14:00:00 Outpatient Paul MA JUAN [facility] [id number] [facility] 2021-07-09 14:00:00 2021-07-09 14:00:00 Outpatient Paul MA JUAN [facility] [id number] [facility] 2021-07-09 14:00:00 2021-07-09 14:00:00 Outpatient Paul MA JUAN [facility] [id number] [facility] 2021-07-09 14:00:00 2021-07-09 14:00:00 Outpatient Paul MA JUAN [facility] [id number] [facility] 2021-07-09 14:00:00 2021-07-09 14:00:00 Outpatient Paul MA JUAN [facility] [id number] [facility] 2021-07-09 14:00:00 2021-07-09 14:00:00 Outpatient Paul MA JUAN [facility] [id number] [facility] 2021-07-09 00:00:00 2021-07-09 00:00:00 Telephone Kim Jones [facility] 1.2.840.114 350.1.13.10 4.2.7.2.686 [id number] [facility] 2021-07-09 00:00:00 2021-07-09 00:00:00 Telephone Kim Jones [facility] 1.2.840.114 350.1.13.10 4.2.7.2.686 [id number] [facility] 2021-07-08 10:08:00 2021-07-08 14:13:00 Emergency X MARY REYNAGA [facility] ERT [id number] [facility] 2021-07-08 10:08:00 2021-07-08 14:13:00 Emergency X M[facility] REYNA[facility] ERT [id number] [facility] 2021-07-08 10:08:00 2021-07-08 14:13:00 Emergency Mary Reynaga [facility] 1.2.840.114 350.1.13.10 4.2.7.2.686 [id number] [facility] 2021-07-08 10:08:00 2021-07-08 14:13:00 Emergency X MARY REYNAGA [facility] ERT [id number] [facility] 2021-07-08 10:08:00 2021-07-08 14:13:00 Emergency X MARY REYNAGA [facility] ERT [id number] [facility] 2021-07-08 10:08:00 2021-07-08 14:13:00 Emergency X MARY REYNAGA [facility] ERT [id number] [facility] 2021-07-08 10:08:00 2021-07-08 10:08:00 Emergency X MARY REYNAGA [facility] ERT [id number] [facility] 2021-07-08 00:00:00 2021-07-08 00:00:00 Telephone Kim Jones [facility] 1.20.114 350.1.13.10 4.2.7.2.686 [id number] [facility] 2021-07-04 00:00:00 2021-07-04 00:00:00 Transition of Care Seth Page Coy [facility] 1.20.114 350.1.13.10 4.2.7.2.686 [id number] [facility] 2021-07-04 00:00:00 2021-07-04 00:00:00 Orders Only Doctor Unassigned, [place] [facility] 1..114 350.1.13.10 4.2.7.2.686 [id number] [facility] 2021-07-01 16:45:00 2021-07-03 13:06:00 Inpatient X CRISS LEYVA [facility] JOANA [id number] [facility] 2021-07-01 16:45:00 2021-07-03 13:06:00 Hospital Encounter Karine Loja David [facility] 1..114 350.1.13.10 4.2.7.2.686 [id number] [facility] 2021-07-03 00:00:00 2021-07-03 00:00:00 Telephone Kim Jones [facility] 1..114 350.1.13.10 4.2.7.2.686 [id number] [facility] [facility] 2021-07-03 00:00:00 2021-07-03 00:00:00 Telephone Kim Jones [facility] 1.2.840.114 350.1.13.10 4.2.7.2.686 [id number] [facility] [id number] [facility] 2021-07-01 15:40:00 2021-07-02 08:32:30 Outpatient R KIM JONES [facility] [id number] [facility] 2021-07-01 15:40:00 2021-07-02 08:32:30 Outpatient R KIM JONES [facility] [id number] [facility] 2021-07-01 15:40:00 2021-07-02 08:32:30 Outpatient R KIM JONES [facility] [id number] [facility] 2021-07-01 15:40:00 2021-07-02 08:32:30 Outpatient R KIM JONES [facility] [id number] [facility] 2021-07-01 15:40:00 2021-07-02 08:32:30 Outpatient R KIM JONES [facility] [id number] [facility] 2021-07-01 15:40:00 2021-07-02 08:32:30 Outpatient R KIM JONES [facility] [id number] [facility] 2021-07-01 15:40:00 2021-07-02 08:32:30 Outpatient R KIM JONES [facility] [id number] [facility] 2021-07-01 15:40:00 2021-07-02 08:32:30 Outpatient R KIM JONES [facility] [id number] [facility] 2021-07-01 15:40:00 2021-07-02 08:32:30 Outpatient R KIM JONES [facility] [id number] [facility] 2021-07-01 15:40:00 2021-07-02 08:32:30 Outpatient R KIM JONES [facility] [id number] [facility] 2021-07-01 15:40:00 2021-07-02 08:32:30 Outpatient R KIM JONES [facility] [id number] [facility] 2021-07-01 15:40:00 2021-07-02 08:32:30 [facility] 1.2.840.114 350.1.13.10 4.2.7.2.686 [id number] [facility] 2021-07-01 15:40:00 2021-07-02 08:32:30 Outpatient R YVONNE JONESZABETH [facility] [id number] [facility] 2021-07-01 15:40:00 2021-07-02 08:32:30 Outpatient R KIM JONES [facility] [id number] [facility] 2021-07-02 00:00:00 2021-07-02 00:00:00 Telephone Surendra Jonesth [facility] 1.2.840.114 350.1.13.10 4.2.7.2.686 [id number] [facility] 2021-07-02 00:00:00 2021-07-02 00:00:00 Telephone Jones [facility] 1.2.840.114 350.1.13.10 4.2.7.2.686 [id number] 231 [id number] [facility] 2021-07-02 00:00:00 2021-07-02 00:00:00 Telephone [facility] 1.2.840.114 350.1.13.10 4.2.7.2.686 [id number] [facility] 2021-07-01 15:40:00 2021-07-01 15:40:00 Outpatient R YVONNE JONESZABETH [facility] [id number] [facility] 2021-07-01 15:40:00 2021-07-01 15:40:00 Outpatient R ROBERT KIM [facility] [id number] [facility] 2021-07-01 00:00:00 2021-07-01 00:00:00 Telephone Robert Kim Orlin [facility] 1.2.840.114 350.1.13.10 4.2.7.2.686 [id number] [facility] 2021-07-01 00:00:00 2021-07-01 00:00:00 Telephone Robert [facility] 1.2.840.114 350.1.13.10 4.2.7.2.686 [id number] [facility] 2021-06-28 00:00:00 2021-06-28 00:00:00 Maria E Eddy [facility] 1.2.840.114 350.1.13.10 4.2.7.2.686 [id number] [facility] 2021-06-26 16:38:40 2021-06-26 23:59:00 Outpatient R JONESYVONNEKIM [facility] [id number] [facility] 2021-06-26 16:38:40 2021-06-26 23:59:00 Hospital Encounter JonesYvonneKim Orlin [facility] 1.2.840.114 350.1.13.10 4.2.7.2.686 [id number] [facility] 2021-06-26 16:38:40 2021-06-26 23:59:00 Outpatient Paul KIM JONES [facility] [id number] [facility] 2021-06-26 00:00:00 2021-06-26 00:00:00 Outpatient R JONESKIM ESTRADA [facility] [id number] [facility] 2021-06-26 00:00:00 2021-06-26 00:00:00 Telephone Juan Mazariegos [facility] 1.2.840.114 350.1.13.10 4.2.7.2.686 [id number] [facility] 2021-06-25 14:00:00 2021-06-25 14:22:55 Outpatient JUAN HARRISON [facility] [id number] [facility] 2021-06-25 14:00:00 2021-06-25 14:22:55 Outpatient JUAN HARRISON [facility] [id number] [facility] 2021-06-25 14:00:00 2021-06-25 14:22:55 Outpatient JUAN HARRISON [facility] [id number] [facility] 2021-06-25 14:00:00 2021-06-25 14:22:55 Outpatient JUAN HARRISON [facility] [id number] [facility] 2021-06-25 14:00:00 2021-06-25 14:22:55 Outpatient JUAN HARRISON [facility] [id number] [facility] 2021-06-25 14:00:00 2021-06-25 14:22:55 Outpatient JUAN HARRISON [facility] [id number] [facility] 2021-06-25 14:00:00 2021-06-25 14:22:55 Outpatient JUAN HARRISON [facility] [id number] [facility] 2021-06-25 14:00:00 2021-06-25 14:22:55 Outpatient R NICOLÁS HAASJUAN Ordaz [facility] [id number] [facility] 2021-06-25 14:00:00 2021-06-25 14:22:55 Outpatient R NICOLÁS MAJUAN [facility] [id number] [facility] 2021-06-25 14:00:00 2021-06-25 14:22:55 Outpatient R NICOLÁS MAJUAN [facility] [id number] [facility] 2021-06-25 14:00:00 2021-06-25 14:22:55 Outpatient R NICOLÁS MAJUAN [facility] [id number] [facility] 2021-06-25 14:00:00 2021-06-25 14:22:55 Outpatient R NICOLÁS MAJUAN [facility] [id number] [facility] 2021-06-25 14:00:00 2021-06-25 14:22:55 Outpatient R NICOLÁS MAJUAN [facility] [id number] [facility] 2021-06-25 14:00:00 2021-06-25 14:22:55 Outpatient R NICOLÁS MAJUAN [facility] [id number] [facility] 2021-06-25 14:00:00 2021-06-25 14:22:55 Outpatient R NICOLÁS MAJUAN [facility] [id number] [facility] 2021-06-25 13:55:53 2021-06-25 14:22:55 Office Visit Juan [facility] 1.2.840.114 350.1.13.10 4.2.7.2.686 [id number] [facility] 2021-06-22 00:00:00 2021-06-22 00:00:00 Orders Only Doctor Unassigned, [place] [facility] 1.2.840.114 350.1.13.10 4.2.7.2.686 [id number] [facility] 2021-06-20 11:20:00 2021-06-20 12:36:56 Outpatient R KIM JONES [facility] [id number] [facility] 2021-06-20 11:20:00 2021-06-20 12:36:56 Outpatient R KIM JONES [facility] [id number] [facility] 2021-06-20 11:08:22 2021-06-20 12:36:56 Office Visit Kim Jones [facility] 1.2.840.114 350.1.13.10 4.2.7.2.686 [id number] [facility] 2021-06-18 15:00:00 2021-06-18 15:00:00 Outpatient JUAN HARRISON [facility] [id number] [facility] 2021-06-18 15:00:00 2021-06-18 15:00:00 Outpatient JUAN HARRISON [facility] [id number] [facility] 2021-06-18 15:00:00 2021-06-18 15:00:00 Outpatient JUAN HARRISON [facility] [id number] [facility] 2021-06-18 15:00:00 2021-06-18 15:00:00 Outpatient JUAN HARRISON [facility] [id number] [facility] 2021-06-18 15:00:00 2021-06-18 15:00:00 Outpatient JUAN HARRISON [facility] [id number] [facility] 2021-06-18 15:00:00 2021-06-18 15:00:00 Outpatient Paul LAWANDAPENGYe TAYLORGLYNNJUAN WHALEY [facility] [id number] [facility] 2021-06-18 00:00:00 2021-06-18 00:00:00 Telephone Kim Jones [facility] 1.2.840.114 350.1.13.10 4.2.7.2.686 [id number] [facility] 2021-06-18 00:00:00 2021-06-18 00:00:00 Telephone Kim Jones [facility] 1.2.840.114 350.1.13.10 4.2.7.2.686 [id number] [facility] 2021-06-17 00:00:00 2021-06-17 00:00:00 Telephone Kim Jones [facility] 1.2.840.114 350.1.13.10 4.2.7.2.686 [id number] [facility] 2021-06-17 00:00:00 2021-06-17 00:00:00 Telephone Kim Jones [facility] 1.2.840.114 350.1.13.10 4.2.7.2.686 [id number] [facility] 2021-06-14 15:20:00 2021-06-14 15:20:00 Outpatient KIM HU [facility] [id number] [facility] 2021-06-14 15:20:00 2021-06-14 15:20:00 Outpatient KIM HU [facility] [id number] [facility] 2021-06-14 15:20:00 2021-06-14 15:20:00 Outpatient KIM HU [facility] [id number] [facility] 2021-06-14 15:20:00 2021-06-14 15:20:00 Outpatient R KIM JONES [facility] [id number] [facility] 2021-06-14 15:20:00 2021-06-14 15:20:00 Outpatient R KIM JONES [facility] [id number] [facility] 2021-06-14 15:20:00 2021-06-14 15:20:00 Outpatient R KIM JONES [facility] [id number] [facility] 2021-06-14 15:20:00 2021-06-14 15:20:00 Outpatient KIM HU [facility] [id number] [facility] 2021-06-14 15:20:00 2021-06-14 15:20:00 Outpatient R KIM JONES [facility] [id number] [facility] 2021-06-14 15:20:00 2021-06-14 15:20:00 Outpatient R KIM JONES [facility] [id number] [facility] 2021-06-14 00:00:00 2021-06-14 00:00:00 Transition of Care Page Seth ..840.114 350.1.13.10 4.2.7.2.686 [id number] [facility] 2021-06-12 07:39:00 2021-06-13 14:00:00 Outpatient CRISS ALATORRE [facility] [id number] [facility] 2021-06-12 07:39:00 2021-06-13 14:00:00 Emergency Pia Watts David [facility] ..840.114 350.1.13.10 4.2.7.2.686 [id number] [facility] 2021-06-12 07:39:00 2021-06-13 14:00:00 Outpatient Brynn LEYVACRISS [facility] [id number] [facility] 2021-06-12 07:39:00 2021-06-13 14:00:00 Outpatient X AUTUMN CRISS [facility] [id number] [facility] 2021-06-11 09:40:00 2021-06-11 09:40:00 Outpatient R [facility] [id number] [facility] 2021-06-11 09:40:00 2021-06-11 09:40:00 Outpatient R [facility] [id number] [facility] 2021-06-11 09:40:00 2021-06-11 09:40:00 Outpatient R [facility] [id number] [facility] 2021-06-11 09:40:00 2021-06-11 09:40:00 Outpatient R [facility] [id number] [facility] 2021-06-11 09:40:00 2021-06-11 09:40:00 Outpatient R [facility] [id number] [facility] 2021-06-11 09:40:00 2021-06-11 09:40:00 Outpatient R [facility] [id number] [facility] 2021-06-11 00:00:00 2021-06-11 00:00:00 Transition of Care Yvonne Fairbanks 840.114 350.1.13.10 4.2.7.2.686 [id number] [facility] 2021-06-11 00:00:00 2021-06-11 00:00:00 Telephone [facility] ..840.114 350.1.13.10 4.2.7.2.686 [id number] [facility] 2021-06-10 10:45:00 2021-06-10 15:00:00 Emergency X MARY REYNAGA [facility] E[facility] [id number] [facility] 2021-06-10 10:45:00 2021-06-10 15:00:00 Emergency Mary Reynaga J [facility] 1.2.840.114 350.1.13.10 4.2.7.2.686 [id number] [facility] 2021-06-10 10:45:00 2021-06-10 15:00:00 Emergency X MARY REYNAGA [facility] [id number] [facility] 2021-06-10 00:00:00 2021-06-10 00:00:00 Telephone Kim Jones [facility] 1.2.840.114 350.1.13.10 4.2.7.2.686 [id number] [facility] 2021-06-10 00:00:00 2021-06-10 00:00:00 Telephone Kim Jones [facility] 1.2.840.114 350.1.13.10 4.2.7.2.686 [id number] [facility] 2021-06-10 00:00:00 2021-06-10 00:00:00 Telephone Kim Jones [facility] 1.2.840.114 350.1.13.10 4.2.7.2.686 [id number] [facility] 2021-06-07 23:27:00 2021-06-09 13:00:00 Outpatient X OREN DALAL [facility] JOAAN [id number] [facility] 2021-06-07 23:27:2021-06-09 13:00:00 Outpatient X RATRA, [facility] [id number] [facility] 2021-06-07 23:27:00 2021-06-09 13:00:00 Outpatient X RATRA, [facility] [id number] [facility] 2021-06-07 23:27:00 2021-06-09 13:00:00 Outpatient X RATRA, [facility] [id number] [facility] 2021-06-07 23:27:00 2021-06-09 13:00:00 Outpatient X RATRA, [facility] [id number] [facility] 2021-06-07 23:27:00 2021-06-09 13:00:00 Outpatient X RATRA, [facility] [id number] [facility] 2021-06-07 23:27:00 2021-06-09 13:00:00 Outpatient X RATRA, [facility] [id number] [facility] 2021-06-07 23:27:00 2021-06-09 13:00:00 Outpatient X RATRA, [facility] [id number] [facility] 2021-06-07 23:27:00 2021-06-09 13:00:00 Outpatient X RATRA, [facility] [id number] [facility] 2021-06-07 23:27:00 2021-06-09 13:00:00 Outpatient X RATRA, [facility] [id number] [facility] 2021-06-07 23:27:00 2021-06-09 13:00:00 Emergency WattsPia, [facility] 1.2.840.114 350.1.13.10 4.2.7.2.686 [id number] [facility] 2021-06-07 23:27:00 2021-06-09 13:00:00 [facility] [id number] [facility] 2021-06-07 23:27:00 2021-06-09 13:00:00 [facility] [id number] [facility] 2021-06-07 23:27:00 2021-06-07 23:27:00 Outpatient X MULUGETA [facility] [id number] [facility] 2021-06-07 15:40:00 2021-06-07 16:38:47 Outpatient R KIM JONES [facility] [id number] [facility] 2021-06-07 15:40:00 2021-06-07 16:38:47 Outpatient R KIM JONES [facility] [id number] [facility] 2021-06-07 14:43:51 2021-06-07 16:38:47 Office Visit Kim Jones [facility] 1.2.840.114 350.1.13.10 4.2.7.2.686 [id number] [facility] 2021-06-07 15:40:00 2021-06-07 15:40:00 Outpatient R KIM JONES [facility] [id number] [facility] 2021-06-07 15:40:00 2021-06-07 15:40:00 Outpatient R KIM JONES [facility] [id number] [facility] 2021-06-06 00:00:00 2021-06-06 00:00:00 Telephone Kim Jones [facility] 1.2.840.114 350.1.13.10 4.2.7.2.686 [id number] [facility] 2021-06-06 00:00:00 2021-06-06 00:00:00 Patient Outreach Shahnaz Ulloa [facility] 1.84.114 350.1.13.10 4.2.7.2.686 [id number] [facility] 2021-06-06 00:00:00 2021-06-06 00:00:00 Orders Only Doctor Unassigned, [place] [facility] 1.0.114 350.1.13.10 4.2.7.2.686 [id number] [facility] 2021-06-04 15:02:35 2021-06-04 15:25:05 Office Visit Juan [facility]azariegos [facility] 1..114 350.1.13.10 4.2.7.2.686 [id number] [facility] 2021-06-04 15:00:00 2021-06-04 15:25:05 Outpatient R JUAN MAZARIEGOS [facility] [id number] [facility] 2021-06-04 15:00:00 2021-06-04 15:25:05 Outpatient JUAN HARRISON [facility] [id number] [facility] 2021-06-04 15:00:00 2021-06-04 15:25:05 Outpatient JUAN HARRISON [facility] [id number] [facility] 2021-06-04 15:00:00 2021-06-04 15:25:05 Outpatient JUAN HARRISON [facility] [id number] [facility] 2021-06-04 15:00:00 2021-06-04 15:25:05 Outpatient JUAN HARRISON [facility] [id number] [facility] 2021-06-04 15:00:00 2021-06-04 15:25:05 Outpatient JUAN HARRISON [facility] [id number] [facility] 2021-06-04 15:00:00 2021-06-04 15:25:05 Outpatient R NICOLÁS MAJUAN [facility] [id number] [facility] 2021-06-04 15:00:00 2021-06-04 15:25:05 Outpatient R NICOLÁS MAJUAN [facility] [id number] [facility] 2021-06-04 15:00:00 2021-06-04 15:25:05 Outpatient R NICOLÁS MAJUAN [facility] [id number] [facility] 2021-06-04 15:00:00 2021-06-04 15:25:05 Outpatient R NICOLÁS MAJUAN [facility] [id number] [facility] 2021-06-04 15:00:00 2021-06-04 15:25:05 Outpatient R NICOLÁS MAJUAN [facility] [id number] [facility] 2021-06-04 15:00:00 2021-06-04 15:25:05 Outpatient Paul MAJUAN [facility] [id number] [facility] 2021-06-04 15:00:00 2021-06-04 15:25:05 Outpatient Paul MAJUAN [facility] [id number] [facility] 2021-06-04 15:00:00 2021-06-04 15:25:05 Outpatient R NICOLÁS MAJUAN [facility] [id number] [facility] 2021-06-04 15:00:00 2021-06-04 15:25:05 Outpatient R NICOLÁS MAJUAN [facility] [id number] [facility] 2021-06-04 15:00:00 2021-06-04 15:25:05 Outpatient R NICOÁLS MA JUAN [facility] [id number] [facility] 2021-06-04 15:00:00 2021-06-04 15:25:05 Outpatient JUAN HARRISON [facility] [id number] [facility] 2021-06-04 15:00:00 2021-06-04 15:00:00 Outpatient JUAN HARRISON [facility] [id number] [facility] 2021-06-04 15:00:00 2021-06-04 15:00:00 Outpatient JUAN HARRISON [facility] [id number] [facility] 2021-06-03 00:00:00 2021-06-03 00:00:00 Transition of Care Page Seth 1.2.840.114 350.1.13.10 4.2.7.2.686 [id number] [facility] 2021-05-30 12:12:00 2021-05-31 11:25:00 Outpatient X ISELA BJ [facility] [id number] [facility] 2021-05-30 12:12:00 2021-05-31 11:25:00 Outpatient X BJ WEISS [facility] [id number] [facility] 2021-05-30 12:12:00 2021-05-31 11:25:00 Emergency Michelle Miranda Jelani [facility] 1..840.114 350.1.13.10 4.2.7.2.686 [id number] [facility] 2021-05-30 12:12:00 2021-05-31 11:25:00 Outpatient X BJ WEISS [facility] [id number] [facility] 2021-05-30 12:12:00 2021-05-31 11:25:00 Outpatient X BJ WEISS [facility] [id number] [facility] 2021-05-30 10:00:00 2021-05-30 10:00:00 Outpatient Paul HAASJUAN Ordaz [facility] [id number] [facility] 2021-05-30 10:00:00 2021-05-30 10:00:00 Outpatient Paul HAASJUAN Ordaz [facility] [id number] [facility] 2021-05-30 10:00:00 2021-05-30 10:00:00 Outpatient Paul HAASJUAN Ordaz [facility] [id number] [facility] 2021-05-30 10:00:00 2021-05-30 10:00:00 Outpatient Paul MAJUAN [facility] [id number] [facility] 2021-05-30 10:00:00 2021-05-30 10:00:00 Outpatient Paul MAJUAN [facility] [id number] [facility] 2021-05-30 10:00:00 2021-05-30 10:00:00 Outpatient Paul MAJUAN [facility] [id number] [facility] 2021-05-30 10:00:00 2021-05-30 10:00:00 Outpatient Paul MAJUAN [facility] [id number] [facility] 2021-05-30 10:00:00 2021-05-30 10:00:00 Outpatient Paul MAJUAN [facility] [id number] [facility] 2021-05-30 10:00:00 2021-05-30 10:00:00 Outpatient Paul MAJUAN [facility] [id number] [facility] 2021-05-30 10:00:00 2021-05-30 10:00:00 Outpatient Paul MAJUAN [facility] [id number] [facility] 2021-05-29 00:00:00 2021-05-29 00:00:00 Telephone Juan Mazariegos [facility] Building [id number] [id number] [id number] [facility] 2021-05-29 00:00:00 2021-05-29 00:00:00 Orders Only Doctor Unassigned, [place] [facility] [id number] 350.1.13.10 [id number] [id number] [facility] 2021-05-28 10:27:21 2021-05-28 13:13:24 [facility] [id number] 350.1.13.10 4.2.7.2.686 [id number] [facility] 2021-05-28 10:20:00 2021-05-28 13:13:24 Outpatient R KIM JONES [facility] [id number] [facility] 2021-05-28 10:20:00 2021-05-28 13:13:24 Outpatient R KIM JONES [facility] [id number] [facility] 2021-05-28 10:20:00 2021-05-28 13:13:24 Outpatient R KIM JONES [facility] [id number] [facility] 2021-05-28 10:20:00 2021-05-28 13:13:24 Outpatient R KIM JONES [facility] [id number] [facility] 2021-05-28 10:20:00 2021-05-28 13:13:24 Outpatient R KIM JONES [facility] [id number] [facility] 2021-05-28 10:20:00 2021-05-28 10:20:00 Outpatient R KIM JONES [facility] [id number] [facility] 2021-05-28 00:00:00 2021-05-28 00:00:00 Telephone [facility] Building [id number] 350.1.13.10 4.2.7.2.686 [id number] [facility] 2021-05-28 00:00:00 2021-05-28 00:00:00 [facility] Building [id number] 350.1.13.10 [id number] [id number] [facility] 2021-05-27 00:00:00 2021-05-27 00:00:00 Transition of Care Page Seth [id number] 350.1.13.10 4.2.7.2.686 [id number] [facility] 2021-05-22 13:49:00 2021-05-24 15:38:00 Inpatient X JUAN MAZARIEGOS [facility] [id number] [facility] 2021-05-22 13:49:00 2021-05-24 15:38:00 Inpatient X JUAN MAZARIEGOS [facility] [id number] [facility] 2021-05-22 13:49:00 2021-05-24 15:38:00 Inpatient X JUAN MAZARIEGOS [facility] [id number] [facility] 2021-05-22 13:49:00 2021-05-24 15:38:00 Inpatient X JUAN MAZARIEGOS [facility] [id number] [facility] 2021-05-22 13:49:00 2021-05-24 15:38:00 Inpatient X ITURRIZAGA- GLYNN, JUAN [facility] [id number] [facility] 2021-05-22 13:49:00 2021-05-24 15:38:00 Inpatient X JUAN MAZARIEGOS [facility] [id number] [facility] 2021-05-22 13:49:00 2021-05-24 15:38:00 Hospital Encounter Sherrie Taylor Nicolás [facility] 1.2.840.114 350.1.13.10 4.2.7.2.686 [id number] [facility] 2021-05-22 13:49:00 2021-05-24 15:38:00 Inpatient X PATITOASHOKALISIA GLYNNJUAN WHALEY [facility] [id number] [facility] 2021-05-22 13:49:00 2021-05-24 15:38:00 Inpatient X JUAN MAZARIEGOS [facility] [id number] [facility] 2021-05-22 13:49:00 2021-05-24 15:38:00 Inpatient X JUAN MAZARIEGOS [facility] [id number] [facility] 2021-05-22 13:49:00 2021-05-24 15:38:00 Inpatient X NICOLÁS HAASJUAN Ordaz [facility] [id number] [facility] 2021-05-23 10:00:00 2021-05-23 10:00:00 Outpatient R NICOLÁS MA JUAN [facility] [id number] [facility] 2021-05-23 10:00:00 2021-05-23 10:00:00 Outpatient R NICOLÁS MA JUAN [facility] [id number] [facility] 2021-05-23 10:00:00 2021-05-23 10:00:00 Outpatient R JUAN MAZARIEGOS [facility] [id number] [facility] 2021-05-23 10:00:00 2021-05-23 10:00:00 Outpatient JUAN HARRISON [facility] [id number] [facility] 2021-05-23 10:00:00 2021-05-23 10:00:00 Outpatient JUAN HARRISON [facility] [id number] [facility] 2021-05-23 10:00:00 2021-05-23 10:00:00 Outpatient JUAN HARRISON [facility] [id number] [facility] 2021-05-23 10:00:00 2021-05-23 10:00:00 Outpatient JUAN HARRISON [facility] [id number] [facility] 2021-05-23 10:00:00 2021-05-23 10:00:00 Outpatient JUAN HARRISON [facility] [id number] [facility] 2021-05-23 10:00:00 2021-05-23 10:00:00 Outpatient JUAN HARRISON [facility] [id number] [facility] 2021-05-23 10:00:00 2021-05-23 10:00:00 Outpatient JUAN HARRISON [facility] [id number] [facility] 2021-05-23 00:00:00 2021-05-23 00:00:00 [facility] 1.2.840.114 350.1.13.10 4.2.7.2.686 [id number] [facility] 2021-05-21 13:30:00 2021-05-21 13:54:00 Outpatient Paul PATITODAYRLYe GLYNNJAUN WHALEY [facility] [id number] [facility] 2021-05-21 13:30:00 2021-05-21 13:54:00 Outpatient R NICOLÁS GLYNNJUAN WHALEY [facility] [id number] [facility] 2021-05-21 13:30:00 2021-05-21 13:54:00 Outpatient R NICOLÁS GLYNNJUAN WHALEY [facility] [id number] [facility] 2021-05-21 13:30:00 2021-05-21 13:54:00 Outpatient R PATITOASHOKALISIA GLYNNJUAN WHALEY [facility] [id number] [facility] 2021-05-21 13:30:00 2021-05-21 13:54:00 Outpatient R PATITOASHOKALISIA GLYNNJUAN WHALEY [facility] [id number] [facility] 2021-05-21 13:30:00 2021-05-21 13:54:00 Outpatient R PATITOASHOKALISIA GLYNNJAUN WHALEY [facility] [id number] [facility] 2021-05-21 13:30:00 2021-05-21 13:54:00 Outpatient R PATITOASHOKALISIA GLYNNJUAN WHALEY [facility] [id number] [facility] 2021-05-21 13:30:00 2021-05-21 13:54:00 Outpatient R NICOLÁS GLYNNJUAN WHALEY [facility] [id number] [facility] 2021-05-21 13:30:00 2021-05-21 13:54:00 Outpatient R PATITOSYDNEYPENGYe TAYLORGLYNNJUAN WHALEY [facility] [id number] [facility] 2021-05-21 13:30:00 2021-05-21 13:54:00 Outpatient R PATITOSYDNEYPENGYe TAYLORGLYNNJUAN WHALEY [facility] [id number] [facility] 2021-05-21 13:30:00 2021-05-21 13:54:00 Outpatient R NICOLÁS HAASJUAN Ordaz [facility] [id number] [facility] 2021-05-21 13:30:00 2021-05-21 13:54:00 Outpatient R JUAN MAZARIEGOS [facility] [id number] [facility] 2021-05-21 13:30:00 2021-05-21 13:54:00 Outpatient JUAN HARRISON [facility] [id number] [facility] 2021-05-21 13:30:00 2021-05-21 13:54:00 Outpatient R JUAN MAZARIEGOS [facility] [id number] [facility] 2021-05-21 13:30:00 2021-05-21 13:54:00 Outpatient JUAN HARRISON [facility] [id number] [facility] 2021-05-21 12:29:51 2021-05-21 13:54:00 Office Visit Juan [facility]os [facility] 1.840.114 350.1.13.10 4.2.7.2.686 [id number] [facility] 2021-05-21 13:30:00 2021-05-21 13:30:00 Outpatient JUAN HARRISON [facility] [id number] [facility] 2021-05-21 00:00:00 2021-05-21 00:00:00 Transition of Care Adilene Petersen 1..840.114 350.1.13.10 4.2.7.2.686 [id number] [facility] 2021-05-17 13:49:00 2021-05-19 17:56:00 Emergency Jairo Jordan David [facility] 1..840.114 350.1.13.10 4.2.7.2.686 [id number] [facility] 2021-05-17 13:49:00 2021-05-19 17:56:00 Outpatient CRISS ALATORRE [facility] JOANA [id number] [facility] 2021-05-17 13:49:00 2021-05-19 17:56:00 Outpatient CRISS ALATORRE [facility] [id number] [facility] 2021-05-16 10:00:00 2021-05-16 10:00:00 Outpatient Paul MA JUAN [facility] [id number] [facility] 2021-05-16 10:00:00 2021-05-16 10:00:00 Outpatient Paul MA JUAN [facility] [id number] [facility] 2021-05-16 10:00:00 2021-05-16 10:00:00 Outpatient Paul MA JUAN [facility] [id number] [facility] 2021-05-16 10:00:00 2021-05-16 10:00:00 Outpatient Paul MA JUAN [facility] [id number] [facility] 2021-05-16 10:00:00 2021-05-16 10:00:00 Outpatient JUAN HARRISON [facility] [id number] [facility] 2021-05-16 10:00:00 2021-05-16 10:00:00 Outpatient JUAN HARRISON [facility] [id number] [facility] 2021-05-16 10:00:00 2021-05-16 10:00:00 Outpatient Paul MA JUAN [facility] [id number] [facility] 2021-05-16 10:00:00 2021-05-16 10:00:00 Outpatient JUAN HARRISON [facility] [id number] [facility] 2021-05-16 10:00:00 2021-05-16 10:00:00 Outpatient JUAN HARRISON [facility] [id number] [facility] 2021-05-16 10:00:00 2021-05-16 10:00:00 Outpatient JUAN HARRISON [facility] [id number] [facility] 2021-05-16 10:00:00 2021-05-16 10:00:00 Outpatient JUAN HARRISON [facility] [id number] [facility] 2021-05-16 10:00:00 2021-05-16 10:00:00 Outpatient JUAN HARRISON [facility] [id number] [facility] 2021-05-16 10:00:00 2021-05-16 10:00:00 Outpatient JUAN HARRISON [facility] [id number] [facility] 2021-05-16 10:00:00 2021-05-16 10:00:00 Outpatient JUAN HARRISON [facility] [id number] [facility] 2021-05-14 14:30:00 2021-05-14 14:30:00 Outpatient JUAN HARRISON [facility] [id number] [facility] 2021-05-13 00:00:00 2021-05-13 00:00:00 Telephone Kim Jones [facility] 1..840.114 350.1.13.10 4.2.7.2.686 [id number] [facility] 2021-05-13 00:00:00 2021-05-13 00:00:00 Transition of Care Page Seth 1..840.114 350.1.13.10 4.2.7.2.686 [id number] [facility] 2021-05-13 00:00:00 2021-05-13 00:00:00 Telephone Kim Jones [facility] 1.2.840.114 350.1.13.10 4.2.7.2.686 [id number] [facility] 2021-05-07 09:37:00 2021-05-10 18:14:00 Hospital Encounter Pia Watts Michaelshanel Oh [facility] 1.2.840.114 350.1.13.10 4.2.7.2.686 [id number] [facility] 2021-05-07 09:37:00 2021-05-10 18:14:00 Inpatient X OH ESPINOZA [facility] JO[facility] [id number] [facility] 2021-05-07 09:37:00 2021-05-10 18:14:00 Inpatient X OLLIEANTHONYSHANEL OH [facility] JO[facility] [id number] [facility] 2021-05-07 09:37:00 2021-05-10 18:14:00 Inpatient X OH ESPINOZA [facility] [id number] [facility] 2021-05-07 09:37:00 2021-05-10 18:14:00 Inpatient X OH ESPINOZA [facility] [id number] [facility] 2021-05-09 10:30:00 2021-05-09 10:30:00 Outpatient R JUAN MAZARIEGOS [facility] [id number] [facility] 2021-05-09 10:30:00 2021-05-09 10:30:00 Outpatient JUAN HARRISON [facility] [id number] [facility] 2021-05-09 10:30:00 2021-05-09 10:30:00 Outpatient JUAN HARRISON [facility] [id number] [facility] 2021-05-09 10:30:00 2021-05-09 10:30:00 Outpatient Paul MATHIS- GLYNNJUAN WHALEY [facility] [id number] [facility] 2021-05-09 10:30:00 2021-05-09 10:30:00 Outpatient Paul RAIN GLYNNJUAN WHALEY [facility] [id number] [facility] 2021-05-09 10:30:00 2021-05-09 10:30:00 Outpatient R DELYe GLYNNJUAN [facility] [id number] [facility] 2021-05-09 10:30:00 2021-05-09 10:30:00 Outpatient Paul MATHISYe GLYNN, JUAN [facility] [id number] [facility] 2021-05-09 10:30:00 2021-05-09 10:30:00 Outpatient Paul OROSCORADHAPENGYe GLYNNJUAN [facility] [id number] [facility] 2021-05-09 10:30:00 2021-05-09 10:30:00 Outpatient R PATITOTHOMAS GLYNNJUAN WHALEY [facility] [id number] [facility] 2021-05-09 10:30:00 2021-05-09 10:30:00 Outpatient R NICOLÁS GLYNN, JUAN [facility] [id number] [facility] 2021-05-07 14:30:00 2021-05-07 14:30:00 Outpatient JUAN HARRISON [facility] [id number] [facility] 2021-05-07 00:00:00 2021-05-07 00:00:00 Telephone Juan Mazariegos [facility] 1.2.840.114 350.1.13.10 4.2.7.2.686 [id number] [facility] 2021-05-07 00:00:00 2021-05-07 00:00:00 Transition of Care Page Seth 1.2.840.114 350.1.13.10 4.2.7.2.686 [id number] [facility] 2021-05-02 12:01:00 2021-05-05 15:40:00 Hospital Encounter Emani Debby Vázquez Shortypatricia Bj [facility] 1.2.840.114 350.1.13.10 4.2.7.2.686 [id number] [facility] 2021-05-02 10:05:35 2021-05-02 10:20:35 Nurse Visit 1, Adc Infusion Nurse Juan Mazariegos [facility] 1.2.840.114 350.1.13.10 4.2.7.2.686 [id number] [facility] 2021-05-02 10:00:00 2021-05-02 10:00:00 Outpatient JUAN HARRISON [facility] [id number] [facility] 2021-05-02 10:00:00 2021-05-02 10:00:00 Outpatient JUAN HARRISON [facility] [id number] [facility] 2021-05-02 10:00:00 2021-05-02 10:00:00 Outpatient JUAN HARRISON [facility] [id number] [facility] 2021-05-02 10:00:00 2021-05-02 10:00:00 Outpatient JUAN HARRISON [facility] [id number] [facility] 2021-05-02 10:00:00 2021-05-02 10:00:00 Outpatient JUAN HARRISON [facility] [id number] [facility] 2021-05-02 10:00:00 2021-05-02 10:00:00 Outpatient JUAN HARRISON [facility] [id number] [facility] 2021-05-02 10:00:00 2021-05-02 10:00:00 Outpatient Paul MAJUAN [facility] [id number] [facility] 2021-05-02 10:00:00 2021-05-02 10:00:00 Outpatient Paul MA JUAN [facility] [id number] [facility] 2021-05-02 10:00:00 2021-05-02 10:00:00 Outpatient Paul MAJUAN [facility] [id number] [facility] 2021-05-02 10:00:00 2021-05-02 10:00:00 Outpatient Paul MAJUAN [facility] [id number] [facility] 2021-05-02 10:00:00 2021-05-02 10:00:00 Outpatient Paul MAJUAN [facility] [id number] [facility] 2021-05-02 00:00:00 2021-05-02 00:00:00 Telephone Juan Mazariegos [facility] 1.2.840.114 350.1.13.10 4.2.7.2.686 [id number] [facility] 2021-04-26 14:00:00 2021-04-26 14:53:04 Outpatient JUAN HARRISON [facility] [id number] [facility] 2021-04-26 14:00:00 2021-04-26 14:53:04 Outpatient JUAN HARRISON [facility] [id number] [facility] 2021-04-26 14:00:00 2021-04-26 14:53:04 Outpatient JUAN HARRISON [facility] [id number] [facility] 2021-04-26 14:00:00 2021-04-26 14:53:04 Outpatient JUAN HARRISON [facility] [id number] [facility] 2021-04-26 14:00:00 2021-04-26 14:53:04 Outpatient JUAN HARRISON [facility] [id number] [facility] 2021-04-26 14:00:00 2021-04-26 14:53:04 Outpatient JUAN HARRISON [facility] [id number] [facility] 2021-04-26 14:00:00 2021-04-26 14:00:00 Outpatient JUAN HARRISON [facility] [id number] [facility] 2021-04-26 13:07:20 2021-04-26 13:27:20 Nurse Visit Nurse, Juan Roque [facility] ..840.114 350.1.13.10 4.2.7.2.686 [id number] [facility] 2021-04-24 00:00:00 2021-04-24 00:00:00 Telephone Maria E Fischer [facility] 1..840.114 350.1.13.10 4.2.7.2.686 [id number] [facility] 2021-04-23 14:30:00 2021-04-23 14:56:56 Outpatient JUAN HARRISON [facility] [id number] [facility] 2021-04-23 14:30:00 2021-04-23 14:56:56 Outpatient JUAN HARRISON [facility] [id number] [facility] 2021-04-23 14:27:07 2021-04-23 14:56:56 Office Visit ItJuan Milian [facility] 1..114 350.1.13.10 4.2.7.2.686 [id number] [facility] 2021-04-23 14:30:00 2021-04-23 14:30:00 Outpatient R JUAN MAZARIEGOS [facility] [id number] [facility] 2021-04-22 10:58:00 2021-04-22 14:18:00 Emergency Mary Reynaga [facility] 1..114 350.1.13.10 4.2.7.2.686 [id number] [facility] 2021-04-22 10:58:00 2021-04-22 14:18:00 Emergency X MARY REYNAGA [facility] [id number] [facility] 2021-04-22 10:58:00 2021-04-22 14:18:00 Emergency X MARY REYNAGA [facility] [id number] [facility] 2021-04-22 00:00:00 2021-04-22 00:00:00 Telephone Juan Mazariegos [facility] 1..114 350.1.13.10 4.2.7.2.686 [id number] [facility] 2021-04-22 00:00:00 2021-04-22 00:00:00 Telephone Juan Mazariegos [facility] 1..114 350.1.13.10 4.2.7.2.686 [id number] [facility] 2021-04-20 00:00:00 2021-04-20 00:00:00 Orders Only Doctor Unassigned, [place] [facility] 1.840.114 350.1.13.10 4.2.7.2.686 [id number] [facility] 2021-04-18 00:00:00 2021-04-18 00:00:00 Orders Only Doctor Unassigned, [place] [facility] 1..114 350.1.13.10 4.2.7.2.686 [id number] [facility] 2021-04-17 00:00:00 2021-04-17 00:00:00 Telephone Juan Mazariegos [facility] 1..114 350.1.13.10 4.2.7.2.686 [id number] [facility] 2021-04-16 16:30:00 2021-04-16 16:30:00 Outpatient JUAN HARRISON [facility] [id number] [facility] 2021-04-16 16:30:00 2021-04-16 16:30:00 Outpatient R JUAN MAZARIEGOS [facility] [id number] [facility] 2021-04-16 16:30:00 2021-04-16 16:30:00 Outpatient JUAN HARRISON [facility] [id number] [facility] 2021-04-16 16:30:00 2021-04-16 16:30:00 Outpatient R JUAN MAZARIEGOS [facility] [id number] [facility] 2021-04-16 16:30:00 2021-04-16 16:30:00 Outpatient R JUAN MAZARIEGOS [facility] [id number] [facility] 2021-04-16 00:00:00 2021-04-16 00:00:00 Telephone Juan Mazariegos [facility] 1.84.114 350.1.13.10 4.2.7.2.686 [id number] [facility] 2021-04-15 00:00:00 2021-04-15 00:00:00 Orders Only Doctor Unassigned, [place] [facility] 1.2.840.114 350.1.13.10 4.2.7.2.686 [id number] [facility] 2021-04-12 00:00:00 2021-04-12 00:00:00 Telephone Kim Jones [facility] 1.2.840.114 350.1.13.10 4.2.7.2.686 [id number] [facility] 2021-04-12 00:00:00 2021-04-12 00:00:00 Telephone Kim Jones [facility] 1.2.840.114 350.1.13.10 4.2.7.2.686 [id number] [facility] 2021-04-11 00:00:00 2021-04-11 00:00:00 Telephone Kim Jones [facility] 1.2.840.114 350.1.13.10 4.2.7.2.686 [id number] [facility] 2021-04-11 00:00:00 2021-04-11 00:00:00 Telephone Juan Mazariegos [facility] 1.2.840.114 350.1.13.10 4.2.7.2.686 [id number] [facility] 2021-04-11 00:00:00 2021-04-11 00:00:00 Telephone Kim Jones [facility] 1.2.840.114 350.1.13.10 4.2.7.2.686 [id number] [facility] 2021-04-09 14:30:00 2021-04-09 14:54:06 Outpatient Paul MAJUAN [facility] [id number] [facility] 2021-04-09 14:30:00 2021-04-09 14:54:06 Outpatient Paul MAJUAN [facility] [id number] [facility] 2021-04-09 14:30:00 2021-04-09 14:54:06 Outpatient R NICOLÁS MAJUAN [facility] [id number] [facility] 2021-04-09 14:30:00 2021-04-09 14:54:06 Outpatient Paul MAJUAN [facility] [id number] [facility] 2021-04-09 14:30:00 2021-04-09 14:54:06 Outpatient Paul MAJUAN [facility] [id number] [facility] 2021-04-09 14:30:00 2021-04-09 14:54:06 Outpatient Paul MAJUAN [facility] [id number] [facility] 2021-04-09 14:30:00 2021-04-09 14:54:06 Outpatient Paul MAJUAN [facility] [id number] [facility] 2021-04-09 14:30:00 2021-04-09 14:54:06 Outpatient Paul MAJUAN [facility] [id number] [facility] 2021-04-09 14:30:00 2021-04-09 14:54:06 Outpatient Paul MAJUAN [facility] [id number] [facility] 2021-04-09 14:30:00 2021-04-09 14:54:06 Outpatient Paul MAJUAN [facility] [id number] [facility] 2021-04-09 13:56:45 2021-04-09 14:54:06 Office Visit Juan Mazariegos [facility] 1.2.840.114 350.1.13.10 4.2.7.2.686 [id number] [facility] 2021-04-09 14:30:00 2021-04-09 14:30:00 Outpatient R JUAN MAZARIEGOS [facility] [id number] [facility] 2021-04-09 00:00:00 2021-04-09 00:00:00 Telephone Juan Mazariegos [facility] 1.2840.114 350.1.13.10 4.2.7.2.686 [id number] [facility] 2021-04-09 00:00:00 2021-04-09 00:00:00 Telephone Juan Mazariegos [facility] 1.2840.114 350.1.13.10 4.2.7.2.686 [id number] [facility] 2021-04-05 00:00:00 2021-04-05 00:00:00 Transition of Care Page [facility] 1.2840.114 350.1.13.10 4.2.7.2.686 [id number] [facility] 2021-03-11 20:29:00 2021-04-04 18:25:00 Inpatient X JUAN MAZARIEGOS [facility] [id number] [facility] 2021-03-11 20:29:00 2021-04-04 18:25:00 Hospital Encounter Michelle Miranda Khaled F Iturrizaga- [place], Jose C [facility] 1.840.114 350.1.13.10 4.2.7.2.686 [id number] [facility] 2021-03-11 20:29:00 2021-04-04 18:25:00 Inpatient X JUAN MAZARIEGOS [facility] [id number] [facility] 2021-03-11 20:29:00 2021-04-04 18:25:00 Inpatient X JUAN MAZARIEGOS [facility] [id number] [facility] 2021-03-11 20:29:00 2021-04-04 18:25:00 Inpatient X JUAN MAZARIEGOS [facility] [id number] [facility] 2021-03-11 20:29:00 2021-04-04 18:25:00 Inpatient X JUAN MAZARIEGOS [facility] [id number] [facility] 2021-03-11 20:29:00 2021-04-04 18:25:00 Inpatient X JUAN MAZARIEGOS [facility] [id number] [facility] 2021-03-11 20:29:00 2021-04-04 18:25:00 Inpatient X JUAN MAZARIEGOS [facility] [id number] [facility] 2021-04-03 10:45:00 2021-04-03 11:30:00 Surgery Fran Trinh [facility] ..840.114 350.1.13.10 4.2.7.2.686 [id number] [facility] 2021-04-03 00:00:00 2021-04-03 00:00:00 Telephone David Ladd [facility] [place] Herlinda [facility] ..840.114 350.1.13.10 4.2.7.2.686 [id number] [facility] 2021-04-02 00:00:00 2021-04-02 00:00:00 Committee Review Standefer, Jackelyn R [facility] 1.840.114 350.1.13.10 4.2.7.2.686 [id number] [facility] 2021-04-02 00:00:00 2021-04-02 00:00:00 Letter (Out) Jackelyn Pulido [facility] 1.840.114 350.1.13.10 4.2.7.2.686 [id number] [facility] 2021-04-02 00:00:00 2021-04-02 00:00:00 Telephone Juan [facility] 1.0.114 350.1.13.10 4.2.7.2.686 [id number] [facility] 2021-03-26 14:20:00 2021-03-26 14:20:00 Outpatient R KELLY KNOWLES [facility] [id number] [facility] 2021-03-21 12:26:00 2021-03-21 23:59:00 Hospital Encounter Hallie Greenberg 1.840.1 42150.1.1 3.104.2.7 .3.946810 .8 [id number] [facility] 2021-03-21 00:00:00 2021-03-21 00:00:00 Telephone Jackelyn Pulido 1.2840.1 90675.1.1 3.104.2.7 .3.902789 .8 [id number] [facility] 2021-03-21 00:00:00 2021-03-21 00:00:00 Travel 1.2.840.1 11306.1.1 3.104.2.7 .3.284360 .8 1.20.114 350.1.13.10 4.2.7.3.698 084.8 [id number] [facility] 2021-03-12 13:30:00 2021-03-12 13:30:00 Outpatient R [facility] [id number] [facility] 2021-03-11 00:00:00 2021-03-11 00:00:00 Travel 1.2.840.1 92883.1.1 3.104.2.7 .3.023325 .8 1.2.840.114 350.1.13.10 4.2.7.3.698 084.8 [id number] [facility] 2021-03-04 07:30:00 2021-03-04 07:30:00 Outpatient ADRIANNA LUCAS [facility] [id number] [facility] 2021-03-04 07:30:00 2021-03-04 07:30:00 Outpatient ADRIANNA LUCAS [facility] [id number] [facility] 2021-03-04 07:30:00 2021-03-04 07:30:00 Outpatient ADRIANNA LUCAS [facility] [id number] [facility] 2021-03-04 07:30:00 2021-03-04 07:30:00 Outpatient ADRIANNA LUCAS [facility] [id number] [facility] 2021-03-04 07:30:00 2021-03-04 07:30:00 Outpatient ADRIANNA LUCAS [facility] [id number] [facility] 2021-03-04 07:30:00 2021-03-04 07:30:00 Outpatient ADRIANNA LUCAS [facility] [id number] [facility] 2021-02-28 16:19:00 2021-03-01 15:10:00 Inpatient EM Stephan Juan [facility]02 [id number] [facility] 2021-02-28 08:44:00 2021-02-28 08:44:00 Outpatient Stephan Juan [facility] [id number] [facility] 2021-02-27 00:00:00 2021-02-27 00:00:00 Transition of Care Page Seth 1.2.840.114 350.1.13.10 4.2.7.2.686 [id number] 2021-02-27 00:00:00 2021-02-27 00:00:00 Transition of Page Garcia 1.2.840.1 79817.1.1 3.104.2.7 .3.339739 .8 [id number] [facility] 2021-02-26 00:00:00 2021-02-26 00:00:00 Transition of Page Garcia 1.2840.114 350.1.13.10 4.2.7.2.686 [id number] 2021-02-26 00:00:00 2021-02-26 00:00:00 Transition of Page Garcia 1.2.840.1 61983.1.1 3.104.2.7 .3.126033 .8 [id number] [facility] 2021-02-25 00:00:00 2021-02-25 00:00:00 Ayush Hill [facility] 1.2840.114 350.1.13.10 4.2.7.2.686 [id number] 2021-02-25 00:00:00 2021-02-25 00:00:00 Ayush Hill 1.2.840.1 80385.1.1 3.104.2.7 .3.651277 .8 [id number] [facility] 2021-02-22 20:27:00 2021-02-24 15:41:00 Emergency Doris Amaral [facility] 1.2840.114 350.1.13.10 4.2.7.2.686 [id number] 2021-02-22 20:27:00 2021-02-24 15:41:00 Emergency Doris Amaral [facility] 1.2.840.1 31814.1.1 3.104.2.7 .3.318458 .8 [id number] [facility] 2021-02-22 20:27:00 2021-02-24 15:41:00 Outpatient X CRISTIN DORIS [facility] [id number] [facility] 2021-02-22 14:50:00 2021-02-22 14:50:00 Outpatient R ADRIANNA HEATH [facility] [id number] [facility] 2021-02-22 00:00:00 2021-02-22 00:00:00 Travel 1.2.840.1 82111.1.1 3.104.2.7 .3.584627 .8 1.2.840.114 350.1.13.10 4.2.7.3.698 084.8 [id number] [facility] 2021-02-21 12:41:00 2021-02-21 15:15:00 Emergency Mary Reynaga 1.2.840.1 94151.1.1 3.104.2.7 .3.177199 .8 [id number] [facility] 2021-02-21 12:41:00 2021-02-21 15:15:[address]ARY REYNAGA [facility] [id number] [facility] 2021-02-21 00:00:00 2021-02-21 00:00:00 Travel 1.2.840.1 49960.1.1 3.104.2.7 .3.974610 .8 1.2.840.114 350.1.13.10 4.2.7.3.698 084.8 [id number] [facility] 2021-02-21 00:00:00 2021-02-21 00:00:00 Transition of Care Page Seth 1.2.840.1 15244.1.1 3.104.2.7 .3.056916 .8 [id number] [facility] 2021-02-20 00:00:00 2021-02-20 00:00:00 Transition of Care Page Seth 1.2.840.1 69714.1.1 3.104.2.7 .3.337679 .8 [id number] [facility] 2021-02-18 18:41:00 2021-02-19 16:16:00 Emergency Pia Watts David 1.2.840.1 56522.1.1 3.104.2.7 .3.946104 .8 [id number] [facility] 2021-02-18 18:41:00 2021-02-19 16:16:00 Outpatient CRISS ALATORRE [facility] [id number] [facility] 2021-02-18 12:57:37 2021-02-18 18:40:00 Hospital Encounter Kim Jones 1.2.840.1 78244.1.1 3.104.2.7 .3.327862 .8 [id number] [facility] 2021-02-18 00:00:00 2021-02-18 00:00:00 Outpatient R KIM JONES [facility] [id number] [facility] 2021-02-18 00:00:00 2021-02-18 00:00:00 Travel 1.2.840.1 81162.1.1 3.104.2.7 .3.770547 .8 1.2.840.114 350.1.13.10 4.2.7.3.698 084.8 [id number] [facility] 2021-02-15 00:00:00 2021-02-15 00:00:00 Orders Only Doctor Unassigned, [place] 1.2840.1 23896.1.1 3.104.2.7 .3.121732 .8 [id number] [facility] 2021-02-13 00:00:00 2021-02-13 00:00:00 Patient Outreach ArtemioShahnaz Wandy [facility] 1.2840.114 350.1.13.10 4.2.7.2.686 [id number] 2021-02-13 00:00:00 2021-02-13 00:00:00 Patient Outreach Shahnaz Ulloa 1.840.1 91185.1.1 3.104.2.7 .3.618950 .8 [id number] [facility] 2021-02-07 08:20:00 2021-02-07 09:47:54 Outpatient R KIM JONES [facility] [id number] [facility] 2021-02-07 08:08:07 2021-02-07 09:47:54 Office Visit Kim Jones 1.840.1 42819.1.1 3.104.2.7 .3.305610 .8 [id number] [facility] 2021-02-07 08:20:00 2021-02-07 08:20:00 Outpatient R KIM JONES [facility] [id number] [facility] 2021-02-07 00:00:00 2021-02-07 00:00:00 Orders Only Doctor Unassigned, [place] 1.840.1 94492.1.1 3.104.2.7 .3.333787 .8 [id number] [facility] 2021-02-07 00:00:00 2021-02-07 00:00:00 Travel 1.2840.1 49259.1.1 3.104.2.7 .3.052723 .8 1.2840.114 350.1.13.10 4.2.7.3.698 084.8 [id number] [facility] 2021-02-04 20:15:00 2021-02-06 16:26:00 Inpatient EM Precious Bae [facility] [id number] [facility] 2021-02-04 12:54:00 2021-02-04 19:20:00 Emergency EM Isac Rouse [facility] [id number] 53 [facility] 2021-02-01 00:00:00 2021-02-01 00:00:00 Telephone Robert Kim Orlin 1.2.840.1 74991.1.1 3.104.2.7 .3.912420 .8 [id number] [facility] 2021-01-23 15:00:00 2021-01-23 15:00:00 Outpatient R LADD, SENDIL [facility] [id number] [facility] 2021-01-23 15:00:00 2021-01-23 15:00:00 Outpatient R LADD, SENDIL [facility] [id number] [facility] 2021-01-23 15:00:00 2021-01-23 15:00:00 Outpatient R LADD, SENDIL [facility] [id number] [facility] 2021-01-23 15:00:00 2021-01-23 15:00:00 Outpatient R LADD, SENDIL [facility] [id number] [facility] 2021-01-23 15:00:00 2021-01-23 15:00:00 Outpatient R LADD, SENDIL [facility] [id number] [facility] 2021-01-23 15:00:00 2021-01-23 15:00:00 Outpatient R LADD, SENDIL [facility] [id number] [facility] 2021-01-22 00:00:00 2021-01-22 00:00:00 Ayush Hill 1.2.840.1 34749.1.1 3.104.2.7 .3.489545 .8 [id number] [facility] 2021-01-18 13:54:00 2021-01-18 17:11:00 Emergency Mary Reynaga Davide 1.2.840.1 09563.1.1 3.104.2.7 .3.578478 .8 [id number] [facility] 2021-01-18 13:54:00 2021-01-18 17:11:00 Emergency X SINTIA REYNAGARA [facility] ERT [id number] [facility] 2021-01-18 00:00:00 2021-01-18 00:00:00 Travel 1.2.840.1 18926.1.1 3.104.2.7 .3.765101 .8 1.2.840.114 350.1.13.10 4.2.7.3.698 084.8 [id number] [facility] 2021-01-10 14:15:33 2021-01-10 14:57:15 Office Visit David Ladd 1.2.840.1 83377.1.1 3.104.2.7 .3.309570 .8 [id number] [facility] 2021-01-10 14:00:00 2021-01-10 14:57:15 Outpatient R DAVID LADD [facility] [id number] [facility] 2021-01-10 09:00:00 2021-01-10 09:00:00 Outpatient R [facility] [id number] [facility] 2021-01-10 00:00:00 2021-01-10 00:00:00 Orders Only Doctor Unassigned, [place] 1.2.840.1 36326.1.1 3.104.2.7 .3.222984 .8 [id number] [facility] 2021-01-10 00:00:00 2021-01-10 00:00:00 Travel 1.2.840.1 12345.1.1 3.104.2.7 .3.065140 .8 1.2.840.114 350.1.13.10 4.2.7.3.698 084.8 [id number] [facility] 2021-01-08 19:30:00 2021-01-08 19:30:00 Outpatient R ATANASOV, STRAHIL ATANASOV, STRAHIL [facility] [id number] [facility] 2021-01-08 19:30:00 2021-01-08 19:30:00 Outpatient R ATANASOV, STRAHIL ATANASOV, STRAHIL [facility] [id number] [facility] 2021-01-08 19:30:00 2021-01-08 19:30:00 Outpatient R ATANASOV, STRAHIL ATANASOV, STRAHIL [facility] [id number] [facility] 2021-01-08 19:30:00 2021-01-08 19:30:00 Outpatient R ATANASOV, STRAHIL ATANASOV, STRAHIL [facility] [id number] [facility] 2021-01-08 19:30:00 2021-01-08 19:30:00 Outpatient R ATANASOV, STRAHIL ATANASOV, STRAHIL [facility] [id number] [facility] 2021-01-08 19:30:00 2021-01-08 19:30:00 Outpatient R ATANASOV, STRAHIL ATANASOV, STRAHIL [facility] [id number] [facility] 2021-01-08 11:15:00 2021-01-08 11:15:00 Outpatient R [facility] [id number] [facility] 2021-01-03 15:04:00 2021-01-07 14:00:00 Inpatient Yared Cheng [facility]02 [id number] [facility] 2021-01-04 11:45:00 2021-01-04 11:45:00 Outpatient R [facility] [id number] [facility] 2021-01-04 00:00:00 2021-01-04 00:00:00 Telephone Maria E Fischer 1.2.840.1 23389.1.1 3.104.2.7 .3.499620 .8 [id number] [facility] 2021-01-03 21:53:00 2021-01-03 21:53:00 Outpatient Yared Scott [facility] [id number] [facility] 2021-01-03 09:40:00 2021-01-03 10:43:02 Outpatient R MARIA E FISCHER [facility] [id number] [facility] 2021-01-03 09:40:00 2021-01-03 10:00:00 Telemedici ne Visit Maria E Fischer Ashley.2.840.1 34951.1.1 3.104.2.7 .3.487400 .8 [id number] [facility] 2021-01-03 09:40:00 2021-01-03 09:40:00 Outpatient R MARIA E FISCHER [facility] [id number] [facility] 2021-01-03 09:40:00 2021-01-03 09:40:00 Outpatient R MARIA E FISCHER [facility] [id number] [facility] 2021-01-03 00:00:00 2021-01-03 00:00:00 Telephone Kim Jones 1.2.840.1 94771.1.1 3.104.2.7 .3.250728 .8 [id number] [facility] 2021-01-02 16:20:00 2021-01-02 16:20:00 Outpatient R MARIA E FISCHER [facility] [id number] [facility] 2021-01-02 16:20:00 2021-01-02 16:20:00 Outpatient R MARIA E FISCHER [facility] [id number] [facility] 2021-01-02 16:20:00 2021-01-02 16:20:00 Outpatient R AMADO MARIA E [facility] [id number] [facility] 2021-01-02 16:20:00 2021-01-02 16:20:00 Outpatient R AMADO MARIA E [facility] [id number] [facility] 2021-01-02 16:20:00 2021-01-02 16:20:00 Outpatient R AMADO MARIA E [facility] [id number] [facility] 2021-01-02 16:20:00 2021-01-02 16:20:00 Outpatient R AMADO MARIA E [facility] [id number] [facility] 2021-01-02 00:00:00 2021-01-02 00:00:00 Orders Only Doctor Unassigned, [place] 1.2.840.1 42344.1.1 3.104.2.7 .3.861825 .8 [id number] [facility] 2021-01-01 13:47:00 2021-01-01 15:39:00 Emergency Mary Reynaga 1.2.840.1 10833.1.1 3.104.2.7 .3.151624 .8 [id number] [facility] 2021-01-01 11:30:00 2021-01-01 11:30:00 Outpatient R DAVID LADD [facility] [id number] [facility] 2021-01-01 08:41:00 2021-01-01 11:14:00 Emergency Mary Reynaga 1.2.840.1 20727.1.1 3.104.2.7 .3.172177 .8 [id number] [facility] 2021-01-01 08:00:00 2021-01-01 09:20:28 Outpatient R MILAN RAYO [facility] [id number] [facility] 2021-01-01 08:00:00 2021-01-01 09:20:28 Outpatient R MILAN RAYO [facility] [id number] [facility] 2021-01-01 08:00:00 2021-01-01 09:20:28 Outpatient R MILAN RAYO [facility] [id number] [facility] 2021-01-01 08:00:00 2021-01-01 09:20:28 Outpatient R MILAN RAYO [facility] [id number] [facility] 2021-01-01 08:00:00 2021-01-01 09:20:28 Outpatient R MILAN RAYO [facility] [id number] [facility] 2021-01-01 08:00:00 2021-01-01 09:20:28 Outpatient R MILAN RAYO [facility] [id number] [facility] 2021-01-01 07:49:24 2021-01-01 09:20:28 Office Visit Milan Rayo 1.2.840.1 23685.1.1 3.104.2.7 .3.201828 .8 [id number] [facility] 2021-01-01 00:00:00 2021-01-01 00:00:00 Telephone Milan Rayo 1.2.840.1 39894.1.1 3.104.2.7 .3.322061 .8 [id number] [facility] 2021-01-01 00:00:00 2021-01-01 00:00:00 Travel 1.2.840.1 11890.1.1 3.104.2.7 .3.820709 .8 1.2.840.114 350.1.13.10 4.2.7.3.698 084.8 [id number] [facility] 2020-12-28 14:20:00 2020-12-28 14:20:00 Outpatient Paul ROHIT AYUSH ROHITAYUSH Diaz [facility] [id number] [facility] 2020-12-28 11:00:00 2020-12-28 11:18:06 Outpatient R DAVID LADD [facility] [id number] [facility] 2020-12-28 11:00:00 2020-12-28 11:18:06 Outpatient R DAVID LADD [facility] [id number] [facility] 2020-12-28 11:00:00 2020-12-28 11:18:06 Outpatient R DAVID LADD [facility] [id number] [facility] 2020-12-28 11:00:00 2020-12-28 11:18:06 Outpatient R DAVID LADD [facility] [id number] [facility] 2020-12-28 11:00:00 2020-12-28 11:18:06 Outpatient R DAVID LADD [facility] [id number] [facility] 2020-12-28 11:00:00 2020-12-28 11:18:06 Outpatient R DAVID LADD [facility] [id number] [facility] 2020-12-28 11:00:00 2020-12-28 11:18:06 Outpatient R DAVID LADD [facility] [id number] [facility] 2020-12-27 13:27:00 2020-12-27 14:19:00 Emergency X PIA WATTS TXMARIANNE ERT [id number] [facility] 2020-12-27 13:27:00 2020-12-27 14:19:00 Emergency X PIA WATTS TXMARIANNE ERT [id number] [facility] 2020-12-27 13:27:00 2020-12-27 14:19:00 Emergency X PIA WATTS TXMARIANNE ERT [id number] [facility] 2020-12-27 13:27:00 2020-12-27 14:19:00 Emergency X PIA WATTS [facility] ERT [id number] [facility] 2020-12-27 13:27:00 2020-12-27 14:19:00 Emergency X PIA WATTS [facility] ERT [id number] [facility] 2020-12-26 13:30:00 2020-12-26 13:30:00 Outpatient R MILAN RAYO [facility] [id number] [facility] 2020-12-26 13:30:00 2020-12-26 13:30:00 Outpatient R MILAN RAYO [facility] [id number] [facility] 2020-12-26 13:30:00 2020-12-26 13:30:00 Outpatient R MILAN RAYO [facility] [id number] [facility] 2020-12-26 13:30:00 2020-12-26 13:30:00 Outpatient R MILAN RAYO [facility] [id number] [facility] 2020-12-26 13:30:00 2020-12-26 13:30:00 Outpatient R MILAN RAYO [facility] [id number] [facility] 2020-12-26 13:30:00 2020-12-26 13:30:00 Outpatient R MILAN RAYO [facility] [id number] [facility] 2020-12-26 13:30:00 2020-12-26 13:30:00 Outpatient R MILAN RAYO [facility] [id number] [facility] 2020-12-17 14:43:00 2020-12-19 13:30:00 Inpatient X THELMA BERNARD [facility] JOANA [id number] [facility] 2020-12-18 19:30:00 2020-12-18 19:30:00 Outpatient R SUNSHINE KLEIN STRAHIL [facility] [id number] [facility] 2020-12-17 13:15:00 2020-12-17 13:15:00 Outpatient R CHUCKIE RODRÍGUEZ [facility] [id number] [facility] 2020-12-17 13:15:00 2020-12-17 13:15:00 Outpatient R CHUCKIE RODRÍGUEZ [facility] [id number] [facility] 2020-12-14 15:15:00 2020-12-14 15:15:00 Outpatient R [facility] [id number] [facility] 2020-12-14 15:15:00 2020-12-14 15:15:00 Outpatient R [facility] [id number] [facility] 2020-12-14 15:15:00 2020-12-14 15:15:00 Outpatient R [facility] [id number] [facility] 2020-12-14 15:15:00 2020-12-14 15:15:00 Outpatient R [facility] [id number] [facility] 2020-12-14 15:15:00 2020-12-14 15:15:00 Outpatient R [facility] [id number] [facility] 2020-12-14 15:15:00 2020-12-14 15:15:00 Outpatient R [facility] [id number] [facility] 2020-12-14 09:15:00 2020-12-14 09:15:00 Outpatient R [facility] [id number] [facility] 2020-12-11 11:34:00 2020-12-12 12:45:00 Outpatient X BJ WEISS [facility] JOANA [id number] [facility] 2020-12-11 10:40:00 2020-12-11 11:23:17 Outpatient R KELLY KNOWLES [facility] [id number] [facility] 2020-12-11 10:40:00 2020-12-11 11:23:17 Outpatient R KELLY KNOWLES [facility] [id number] [facility] 2020-12-11 10:40:00 2020-12-11 11:23:17 Outpatient R KELLY KNOWLES [facility] [id number] [facility] 2020-12-11 10:40:00 2020-12-11 11:23:17 [facility] [id number] [facility] 2020-12-11 10:40:00 2020-12-11 11:23:17 Out[facility] R [facility] [id number] [facility] 2020-12-11 10:40:00 2020-12-11 10:40:00 Outpatient R KELLY KNOWLES [facility] [id number] [facility] 2020-12-10 00:00:00 2020-12-10 23:59:00 [id number] 2020-12-10 00:00:00 2020-12-10 00:00:00 Outpatient KELLY KNOWLES [facility] [id number] [facility] 2020-12-07 10:00:00 2020-12-07 10:19:12 Outpatient R WILBERTO DAVID [facility] [id number] [facility] 2020-12-07 10:00:00 2020-12-07 10:19:12 Out[facility] [id number] [facility] 2020-12-07 10:00:00 2020-12-07 10:19:12 Outpatient R WILBERTO SENDDANE [facility] [id number] [facility] 2020-12-07 10:00:00 2020-12-07 10:19:12 Outpatient R WILBERTO SENDDANE [facility] [id number] [facility] 2020-12-07 10:00:00 2020-12-07 10:19:12 Outpatient R WILBERTO [facility]DANE [facility] [id number] [facility] 2020-12-07 10:00:00 2020-12-07 10:19:12 Outpatient R WILBERTO SENDIL [facility] [id number] [facility] 2020-12-07 10:00:00 2020-12-07 10:19:12 Outpatient DAVID MATUTE [facility] [id number] [facility] 2020-12-07 10:00:00 2020-12-07 10:00:00 Outpatient DAVID MATUTE [facility] [id number] [facility] 2020-11-30 16:20:00 2020-12-05 11:58:00 Inpatient Benoit John [facility] TELE [id number] [facility] 2020-11-30 19:30:00 2020-11-30 19:30:00 Outpatient SUNSHINE GALLAGHER STRAERICKWandy [facility] [id number] [facility] 2020-11-29 14:00:00 2020-11-29 14:00:00 Outpatient CM CUMMINGS [facility] [id number] [facility] 2020-11-29 14:00:00 2020-11-29 14:00:00 Outpatient CM CUMMINGS [facility] [id number] [facility] 2020-11-29 14:00:00 2020-11-29 14:00:00 Outpatient CM CUMMINGS [facility] [id number] [facility] 2020-11-29 14:00:00 2020-11-29 14:00:00 Outpatient CM CUMMINGS [facility] [id number] [facility] 2020-11-29 14:00:00 2020-11-29 14:00:00 Outpatient CM CUMMINGS [facility] [id number] [facility] 2020-11-29 14:00:00 2020-11-29 14:00:00 Outpatient CM CUMMINGS [facility] [id number] [facility] 2020-11-29 09:43:42 2020-11-29 09:43:42 Inpatient HCAPM HCAPM [id number] [facility] 2020-11-28 09:00:00 2020-11-28 09:00:00 Outpatient R [facility] [id number] [facility] 2020-11-27 19:30:00 2020-11-27 19:30:00 Outpatient R ATANASOV, STRAHIL ATANASOV, STRAHIL [facility] [id number] [facility] 2020-11-27 19:30:00 2020-11-27 19:30:00 Outpatient R ATANASOV, STRAHIL ATANASOV, STRAHIL [facility] [id number] [facility] 2020-11-27 19:30:00 2020-11-27 19:30:00 Outpatient R ATANASOV, STRAHIL ATANASOV, STRAHIL [facility] [id number] [facility] 2020-11-27 19:30:00 2020-11-27 19:30:00 Outpatient R ATANASOV, STRAHIL ATANASOV, STRAHIL [facility] [id number] [facility] 2020-11-27 19:30:00 2020-11-27 19:30:00 Outpatient R ATANASOV, STRAHIL ATANASOV, STRAHIL [facility] [id number] [facility] 2020-11-27 19:30:00 2020-11-27 19:30:00 Outpatient R ATANASOV, STRAHIL ATANASOV, STRAHIL [facility] [id number] [facility] 2020-11-26 11:30:00 2020-11-26 11:30:00 Outpatient R [facility] [id number] [facility] 2020-11-20 14:00:00 2020-11-20 14:00:00 Outpatient R DAVID LADD [facility] [id number] [facility] 2020-11-14 00:00:00 2020-11-14 00:00:00 Outpatient R MARIA E FISCHER [facility] [id number] [facility] 2020-11-14 00:00:00 2020-11-14 00:00:00 Outpatient MARIA E TRAN [facility] [id number] [facility] 2020-11-14 00:00:00 2020-11-14 00:00:00 Outpatient MARIA E TRAN [facility] [id number] [facility] 2020-11-14 00:00:00 2020-11-14 00:00:00 Outpatient MARIA E TRAN [facility] [id number] [facility] [facility] 2020-11-10 19:30:00 2020-11-10 19:30:00 Outpatient SUNSHINE GALLAGHER STRAINWandy [facility] [id number] [facility] 2020-11-08 12:00:00 2020-11-08 12:00:00 Outpatient R [facility] [id number] [facility] 2020-11-07 13:00:00 2020-11-07 13:00:00 Outpatient SUNSHINE GALLAGHER STRAHIL [facility] [id number] [facility] 2020-11-02 08:40:00 2020-11-02 08:40:00 Outpatient AYUSH DUNAWAY HOWARD [facility] [id number] [facility] 2020-11-02 08:40:00 2020-11-02 08:40:00 Outpatient AYUSH DUNAWAY HOWARD [facility] [id number] [facility] 2020-11-02 08:40:00 2020-11-02 08:40:00 Outpatient AYUSH DUNAWAY HOWARD [facility] [id number] [facility] 2020-11-02 08:40:00 2020-11-02 08:40:00 Outpatient AYUSH DUNAWAY HOWARD [facility] [id number] [facility] 2020-11-02 08:40:00 2020-11-02 08:40:00 Outpatient AYUSH DUNAWAY HOWARD [facility] [id number] [facility] 2020-11-02 08:40:00 2020-11-02 08:40:00 Outpatient AYUSH DUNAWAY HOWARD [facility] [id number] [facility] 2020-10-31 10:00:00 2020-10-31 10:27:10 Outpatient R WILBERTO SENDDANE [facility] [id number] [facility] 2020-10-31 10:00:00 2020-10-31 10:27:10 Outpatient R WILBERTO SENDDANE [facility] [id number] [facility] 2020-10-31 10:00:00 2020-10-31 10:27:10 Outpatient R WILBERTO SENDDANE [facility] [id number] [facility] 2020-10-31 10:00:00 2020-10-31 10:27:10 Outpatient R WILBERTO SENDDANE [facility] [id number] [facility] 2020-10-31 10:00:00 2020-10-31 10:00:00 Outpatient R WILBERTO SENDDANE [facility] [id number] [facility] 2020-10-24 09:01:00 2020-10-25 16:45:00 Inpatient MARIA E MCELROY [facility] [id number] [facility] 2020-10-12 09:51:00 2020-10-13 12:38:00 Outpatient OH WITT [facility] [id number] [facility] 2020-10-11 09:20:00 2020-10-11 09:20:00 Outpatient MARIA E TRAN [facility] [id number] [facility] 2020-10-02 10:00:00 2020-10-02 11:14:31 Outpatient R WILBERTO SENDDANE [facility] [id number] [facility] 2020-10-02 10:00:00 2020-10-02 11:14:31 Outpatient R LADDDAVID PAREDES [facility] [id number] [facility] 2020-10-02 10:00:00 2020-10-02 11:14:31 Outpatient R DAVID LADD [facility] [id number] [facility] 2020-10-02 10:00:00 2020-10-02 10:00:00 Outpatient R DAVID LADD [facility] [id number] [facility] 2020-09-11 13:00:00 2020-09-11 13:46:40 Outpatient R KELLY KNOWLES [facility] [id number] [facility] 2020-09-11 13:00:00 2020-09-11 13:46:40 Outpatient R KELLY KNOWLES [facility] [id number] [facility] 2020-09-11 13:00:00 2020-09-11 13:46:40 Outpatient R KELLY KNOWLES [facility] [id number] [facility] 2020-09-11 13:00:00 2020-09-11 13:00:00 Outpatient R KELLY KNOWLES [facility] [id number] [facility] 2020-09-04 08:30:00 2020-09-04 08:30:00 Outpatient R DAVID LADD [facility] [id number] [facility] 2020-09-03 10:00:00 2020-09-03 11:08:35 Outpatient R WILBERTODAVID [facility] [id number] [facility] 2020-09-03 10:00:00 2020-09-03 11:08:35 Outpatient R WILBERTODAVID [facility] [id number] [facility] 2020-09-03 10:00:00 2020-09-03 10:00:00 Outpatient R WILBERTODAVID [facility] [id number] [facility] 2020-08-27 08:00:00 2020-08-28 16:04:00 Outpatient [place] WITT [facility] [id number] [facility] 2020-08-27 15:45:00 2020-08-27 15:45:00 Outpatient R MOHINDER JANICE [facility] [id number] [facility] 2020-08-12 22:05:00 2020-08-12 23:50:00 Emergency X MARY REYNAGA [facility] E[facility] [id number] [facility] 2020-07-30 05:18:00 2020-08-09 15:32:00 Inpatient X THELMA GALLARDO [facility] [id number] [facility] 2020-07-30 05:18:00 2020-08-09 15:32:00 Inpatient X ABTHELMA BERNARD [facility] [id number] [facility] 2020-07-30 05:18:00 2020-08-09 15:32:00 Inpatient X THELMA GALLARDO [facility] [id number] [facility] 2020-07-23 11:00:00 2020-07-23 11:00:00 Outpatient R DAVID LADD [facility] [id number] [facility] 2020-07-04 09:45:00 2020-07-05 13:00:00 Outpatient X LISANDRA ADAMS [facility] JO[facility] [id number] [facility] 2020-06-28 00:02:00 2020-06-28 01:33:00 Emergency X DORIS AMARAL [facility] E[facility] [id number] [facility] 2020-06-28 00:02:00 2020-06-28 01:33:00 Emergency X DEEPIKAROSIEDORIS [facility] ERT [id number] [facility] 2020-06-26 08:00:00 2020-06-26 08:00:00 Outpatient REBECCA SAUCEDO [facility] [id number] [facility] 2020-06-26 08:00:00 2020-06-26 08:00:00 Outpatient REBECCA SAUCEDO [facility] [id number] [facility] 2020-06-26 08:00:00 2020-06-26 08:00:00 Outpatient REBECCA SAUCEDO [facility] [id number] [facility] 2020-06-08 13:30:00 2020-06-08 13:30:00 Outpatient Paul ANA LADDDANE [facility] [id number] [facility] 2020-06-08 13:30:00 2020-06-08 13:30:00 Outpatient ANA MATUTEDANE [facility] [id number] [facility] 2020-05-29 05:06:00 2020-06-02 14:30:00 Inpatient E JOSÉ MIGUEL PARKS [facility] [address] [facility] 2020-05-30 00:00:00 2020-05-30 00:00:00 Outpatient KIM HU [facility] [id number] [facility] 2020-05-30 00:00:00 2020-05-30 00:00:00 Outpatient KIM HU [facility] [id number] [facility] 2020-05-22 16:20:00 2020-05-22 16:20:00 Outpatient KIM HU [facility] [id number] [facility] 2020-05-15 09:41:00 2020-05-16 12:59:00 Outpatient OH WITT [facility] [id number] [facility] 2020-05-15 16:00:00 2020-05-15 16:00:00 Outpatient DAVID MATUTE [facility] [id number] [facility] 2020-05-03 10:40:00 2020-05-03 10:40:00 Outpatient KIM HU [facility] [id number] [facility] 2020-04-30 09:07:00 2020-05-02 14:10:00 Inpatient OH WITT [facility] [id number] [facility] 2020-04-17 09:53:31 2020-04-17 23:59:00 Outpatient R RADIOLOGY [facility] [id number] [facility] 2020-04-17 00:00:00 2020-04-17 00:00:00 Outpatient R RADIOLOGY [facility] [id number] [facility] 2020-04-02 10:09:00 2020-04-04 11:59:00 Inpatient U OH ESPINOZA [facility] [id number] [facility] 2020-04-02 10:00:00 2020-04-02 10:00:00 Outpatient R DAVID LADD [facility] [id number] [facility] 2020-03-07 08:27:00 2020-03-08 13:05:00 Outpatient X OH ESPINOZA [facility] [id number] [facility] 2020-03-06 09:40:00 2020-03-06 09:40:00 Outpatient R CORNELIA SANDERSON [facility] [id number] [facility] 2020-02-06 11:15:00 2020-02-06 11:15:00 Outpatient R JOSE MARLOW [facility] [id number] [facility] 2020-02-05 09:47:40 2020-02-05 12:00:00 Emergency X ABILIO DENIS [facility] ERT [id number] [facility] 2020-01-31 08:20:00 2020-01-31 08:20:00 Outpatient R KIM JONES [facility] [id number] [facility] 2020-01-17 07:06:06 2020-01-17 09:48:00 Emergency X DORIS AMARAL [facility] E[facility] [id number] [facility] 2020-01-09 11:14:35 2020-01-13 15:51:00 Inpatient X ABBY COHEN [facility] MPU [id number] [facility] 2019-12-29 14:00:00 2019-12-29 14:00:00 Outpatient R DAVID LADD [facility] [id number] [facility] 2019-12-28 13:45:00 2019-12-28 13:45:00 Outpatient R MARIA E FISCHER [facility] [id number] [facility] 2019-12-20 08:00:00 2019-12-20 08:00:00 Outpatient R KIM JONES [facility] [id number] [facility] 2019-12-16 13:18:28 2019-12-17 12:30:00 Outpatient X OH ESPINOZA [facility] [id number] [facility] 2019-12-09 14:24:00 2019-12-10 13:40:00 Outpatient U DAVID LADD [facility] [id number] [facility] 2019-12-09 11:00:00 2019-12-09 11:00:00 Outpatient R DAVID LADD [facility] [id number] [facility] 2019-10-28 09:30:00 2019-10-28 09:30:00 Outpatient R DAVID LADD [facility] [id number] [facility] 2019-10-27 16:00:00 2019-10-27 16:00:00 Outpatient R MARIA E FISCHER [facility] [id number] [facility] 2019-10-17 08:57:37 2019-10-18 16:37:00 Inpatient X JORDIN OH [facility] [id number] [facility] 2019-10-12 14:00:00 2019-10-12 14:00:00 Outpatient R SUNSHINE KLEIN STRAHIL [facility] [id number] [facility] 2019-10-06 10:00:00 2019-10-06 10:00:00 Outpatient R MARIA E FISCHER [facility] [id number] [facility] 2019-09-27 20:03:19 2019-09-29 12:43:00 Inpatient X JANIYA WALDRON [facility] [id number] [facility] 2019-09-15 11:00:00 2019-09-15 12:06:04 Outpatient R DAVID LADD [facility] [id number] [facility] 2019-09-08 12:40:00 2019-09-08 14:26:13 Outpatient MRAIA E TRAN [facility] [id number] [facility] 2019-08-23 16:00:00 2019-08-23 16:00:00 Outpatient KIM HU [facility] [id number] [facility] 2019-08-05 10:13:21 2019-08-05 23:59:00 Outpatient R JONESKIM [facility] [id number] [facility] 2019-08-04 13:30:00 2019-08-04 14:24:09 Outpatient R GORDONSALOME BENNETT [facility] [id number] [facility] 2019-08-01 13:00:00 2019-08-01 14:09:07 Outpatient SHAR HUBETH [facility] [id number] [facility] 2019-07-19 08:32:03 2019-07-20 17:30:00 Inpatient X JANIYA WALDRON [facility] [id number] [facility] 2015-02-25 10:52:00 2015-02-25 15:20:00 Emergency X JO RANDLE [facility] ERT [id number] [facility] Results Test Description Test Time Test Comments Results Result Co mments Source [facility] Panel (78620)2024-10-05 00:40:27* Test Item Value Reference Range Interpretation Comme nts NA (test code = 6051658436) 139 mmol/L 135-145 K (test code = 8541040587) 3.8 mmol/L 3.5-5.0 CL (test code = 2193344951) 101 mmol/L 98-108 CO2 TOTAL (test code = 3370464005) 30 mmol/L 23-31 AGAP (test code = 8577465528) 8 2-16 BUN (test code = 6263676947) 26 mg/dL 7-23 H GLUCOSE (test code = 4855636579) 106 mg/dL 70-110 CREATININE (test code = 2160-0) 1.59 mg/dL 0.60-1.25 H TOTAL BILI (test code = 6926971214) 1.1 mg/dL 0.1-1.1 CALCIUM (test code = 9260416273) 9.3 mg/dL 8.6-10.6 T PROTEIN (test code = 7586925657) 8.3 g/dL 6.3-8.2 H ALBUMIN (test code = 5689882186) 4.5 g/dL 3.5-5.0 ALK PHOS (test code = 5008558488) 67 U/L 34-122 ALTv (test code = 1742-6) 35 U/L 5-50 AST(SGOT) (test code = 8038118469) 41 U/L 13-40 H eGFR (test code = 96794-9) 50.3 mL/min/1.73m2 CKD-EPI eGFR (2020). Assuming creatinine has been stable day-to-day for at least three months, the eGFR indicates Category G3a (45 - 59 mL/min/1.73 m2) Lab Interpretation (test code = 67687-4) Abnormal [facility] with [id number] 00:27:04* Test Item Value Reference Range Interpretation [...] g/dL 31.2-35.0 L RDW-SD (test code = 17059-1) 56.6 fL 38.5-51.6 H RDW-CV (test code = 788-0) 19.1 % 12.1-15.4 H PLT (test code = 777-3) 214 150-328 MPV (test code = 70020-6) 11.6 fL 9.8-13.0 NRBC/100 WBC (test code = 1945413010) 0.0 0.0-10.0 NRBC x10^3 (test code = 0391270263) See_Comment [Automated Exabeama ge] The system which generated this result transmitted reference range: 10*3/?L. The reference range was not used to interpret this result as normal/abnormal. GRAN MAT (NEUT) % (test code = 770-8) 43.5 % IMM GRAN % (test code = 2432466456) 0.20 % LYMPH % (test code = 736-9) 40.5 % MONO % (test code = 5905-5) 13.3 % EOS % (test code = 713-8) 1.9 % BASO % (test code = 706-2) 0.6 % GRAN MAT x10^3(ANC) (test code = 7085953483) 2.10 10*3/uL 1.99-6.95 IMM GRAN x10^3 (test code = 1045055270) 0.00-0.06 LYMPH x10^3 (test code = 731-0) 1.95 10*3/uL 1.09-3.23 MONO x10^3 (test code = 742-7) 0.64 10*3/uL 0.36-1.02 EOS x10^3 (test code = 711-2) 0.09 10*3/uL 0.06-0.53 BASO x10^3 (test code = 704-7) 0.03 10*3/uL 0.01-0.09 Lab Interpretation (test code = 23053-2) Abnormal [facility] wo [id number] 23:46:20CT HEAD WO CONTRAST HISTORY:58 years old [...] clear. The calvariumand central skull base are unremarkable.[facility] 12 lead (arrhythmia)2024-10-03 03:25:46* Test Item Value Reference Range Interpretation Comme nts Ventricular Rate (test code = 7207951477) BPM Atrial Rate (test code = 6197791279) BPM QRS Duration (test code = 2697099405) 206 ms QT/QTc (test code = 4553207143) 530 ms QTc Calculation (test code = 1203506298) 626 ms R-[place] (test code = 0450447773) degrees T-[place] (test code = 4585673715) degrees IMP (test code = IMP) PXN (test code = PXN) [facility] Rmxdrijef8485-01-31 21:53:43* Test Item Value Reference Range Interpretation Comme nts BSA (test code = 0754134482) 2.18 m2 Radiology Study observation (narrative) (test code = 28138-9) JACOB (test code = JACOB) [facility] ldmcacnp7904-25-42 10:17:01* Test Item Value Reference Range Interpretation Comme nts RVOT Vmean (test code = 5472844805) 0.45 m/s LA Vol I (A4C) BSA (test code = 7994889750) 110.7 ml/m2 LA Vol I BSA (test code = 7359299085) 70.7 ml/m2 LVOT Vmax/AV Vmax (test code = 5531115591) 0.85 {ratio} Ao Root diam diastole (test code = 3215953377) 32 mm LVOT Vmean (test code = 2140685276) 0.59 m/s LV SV (A4C) (test code = 3591643667) 68 ml LV SI (A2C) (test code = 9462627238) 51 ml LV SV (BP) (test code = 0742891859) 55 ml LV SI (A4C) (test code = 0936380549) 31.6 ml/m2 LV SI (A2C) (test code = 3449329963) 23.7 ml/m2 LV SI (BP) (test code = 3009115325) 25.6 ml/m2 LVLs (A4C) (test code = 5324547058) 122 mm LVLs (A2C) (test code = 8530675905) 110 mm LVLd (A4C) (test code = 9446450811) 123 mm LVLd (A2C) (test code = 3852351599) 116 mm PV mn sommer (test code = 6057060803) 0.63 m/s LV ESV A2C (test code = 7867998258) 225 mL LV EDV A4C (test code = 0890911444) 377 mL LA area A4C (test code = 1334107051) 52.6 cm2 LA area A2C (test code = 8805600579) 37.5 cm2 LV ESV A4C (test code = 4409095437) 311 mL LV EDV A2C (test code = 8517595251) 277 mL TR pk grad (test code = 5194556915) mmHg TAPSE (test code = 1107388601) 20 mm RV FAC 2D (test code = 4678720133) LA ESV A2C (test code = 1686584211) 152 mL LA ESV A4C (test code = 4988978983) 152 mL RV ANANYA (test code = 2940278538) 25.8 cm2 LV est EF (test code = 3425453741) 17 % LA vol index (test code = 6444661718) 95.8 mL/m2 LV EDV BP (test code = 0623627886) 332 mL LV ESV BP (test code = 9525086783) 277 mL MV A pk sommer (test code = 5588082874) 0.8 m/s MV PHT (test code = 6140828182) 45 ms MV E pk sommer (test code = 0135891516) 0.94 m/s PV mn grad (test code = 1006588811) mmHg AV pk grad (test code = 9792875799) mmHg LV stroke vol (test code = 3420501939) 43 ml RVOT VTI (test code = 1852744672) 13.2 cm RVOT pk smomer (test code = 6912660627) 0.71 m/s AV VTI (test code = 1742049038) 17.6 cm AV pk sommer (test code = 7871278872) 0.97 m/s LVOT VTI (test code = 2348819773) 11.2 cm LVOT pk sommer (test code = 0488834947) 0.82 m/s LVOT area (test code = 6768797102) 3.8 cm2 LVOT diam (test code = 6126854838) 22 mm MV DT (test code = 4563108878) 154 ms MV e' lateral sommer (test code = 6168166834) 2.89 cm/s MV E/A ratio (test code = 3722833225) PV pk grad (test code = 2319839593) mmHg MV area PHT (test code = 3163736502) 4.89 cm2 LVOT pk grad (test code = 3163593579) mmHg AV mn grad (test code = 9742952096) mmHg RVOT mn grad (test code = 1351763903) mmHg RVOT pk grad (test code = 8538586873) mmHg MV E/e' septal (test code = 9545277488) RA vol (test code = 1107498487) 43.8 mL/m2 TR pk sommer (test code = 7261713679) 3.1 m/s AV area pk sommer (test code = 1287902484) 3.22 cm2 AV area cont VTI (test code = 7445819113) 2.42 cm2 LVOT mn grad (test code = 5862138161) mmHg RV KARIN (test code = 6576349378) 30.9 cm2 RV-covarrubias mid diam (test code = 6336826324) 35 cm RV-covarrubias basal diam (test code = 7054507768) 48 cm RV-covarrubias longitudinal diam (test code = 6225690461) 117 cm LV A4C EF (test code = 3398599435) 18 % LV A2C EF (test code = 5253339981) 18 % AV mn sommer (test code = 0357405132) 0.66 m/s LVPWd (test code = 1723849998) 13 mm LA size (test code = 3246268771) 40 mm Ascending aorta (test code = 7825011343) [address] junction (test code = 5806869214) 27 mm LA vol BP (test code = 0830436293) 206 ml LV biplane EF (test code = 4920347624) 16.6 % Fractional Shortening 2D (test code = 3376349866) 8 % LVIDs (test code = 8172657345) 64 mm IVSd (test code = 0492154407) 11 mm LVIDd (test code = 6620706428) 70 mm PV pk sommer (test code = 1286233339) 1.03 m/s PV VTI (test code = 4475706) 17 cm MV E/e' lateral (test code = 8944132) MV e' septal sommer (test code = 9256848) 5.17 cm/s LV ESV 2D (test code = 4961163) 211 mL LV EDV 2D (test code = 0564585) 255 mL IVSd 2D (test code = 8100235) 10.912304437714721 cm BSA (test code = 2801325800) 2.18 m2 RVSP (test code = 2984171) mmHg RAP (test code = 6492791581) mmHg Radiology Study observation (narrative) (test code = 36561-1) JACOB (test code = JACOB) [facility] EpicXR Chest 1 [id number] 20:21:18PROCEDURE: XR CHEST 1 09/19/2024 1:39 PM [...] pneumothorax. Marked cardiomegaly, unchanged. No aggressive osseous lesion.[facility] [id number] 18:19:45* Test Item Value Reference Range Interpretation Comme nts TROPONIN I (test code = 3189734005) 0.046 ng/mL <=0.034 H JACOB (test code [...] of biotin. Lab Interpretation (test code = 52331-9) Abnormal [facility] WITH [id number] 18:19:04* Test Item Value Reference Range Interpretation [...] g/dL 31.2-35.0 L RDW-SD (test code = 77914-8) 56.0 fL 38.5-51.6 H RDW-CV (test code = 788-0) 19.2 % 12.1-15.4 H PLT (test code = 777-3) 171 150-328 MPV (test code = 71749-0) 11.4 fL 9.8-13.0 IPF % (test code = 2480242475) 6.1 % 1.2-10.7 Platelet count measured by fluorescence method. NRBC/100 WBC (test code = 2591898795) 0.0 0.0-10.0 NRBC x10^3 (test code = 7168578792) See_Comment [Automated messa ge] The system which generated this result transmitted reference range: 10*3/?L. The reference range was not used to interpret this result as normal/abnormal. GRAN MAT (NEUT) % (test code = 770-8) 54.6 % IMM GRAN % (test code = 9512160300) 0.20 % LYMPH % (test code = 736-9) 34.3 % MONO % (test code = 5905-5) 8.9 % EOS % (test code = 713-8) 1.6 % BASO % (test code = 706-2) 0.4 % GRAN MAT x10^3(ANC) (test code = 0790049506) 2.71 10*3/uL 1.99-6.95 IMM GRAN x10^3 (test code = 3133191111) 0.00-0.06 LYMPH x10^3 (test code = 731-0) 1.70 10*3/uL 1.09-3.23 MONO x10^3 (test code = 742-7) 0.44 10*3/uL 0.36-1.02 EOS x10^3 (test code = 711-2) 0.08 10*3/uL 0.06-0.53 BASO x10^3 (test code = 704-7) 0.01-0.09 Lab Interpretation (test code = 87760-5) [facility]normal [facility] [id number]-[id number] 18:17:08* Test Item Value Reference Range Interpretation Comme nts NT-proBNP (test code = 17720-2) 6340 pg/mL <=125 H JACOB (test code = JACOB) Positive: Heart Failure Likely Lab Interpretation (test code = 57133-4) Abnormal [facility] Taylor[facility]esium2025-02-17 18:09:04* Test Item Value Reference Range Interpretation Comme nts MAGNESIUM (test code = 2417636795) 1.9 mg/dL 1.7-2.4 Lab Interpretation (test cod e = 98624-8) Normal [facility] METABOLIC PANEL (54004)2024-09-19 18:08:44* Test Item Value Reference Range Interpretation Comme nts NA (test code = 6906552394) 141 mmol/L 135-145 K (test code = 8466402357) 4.0 mmol/L 3.5-5.0 CL (test code = 9503716621) 104 mmol/L 98-108 CO2 TOTAL (test code = 5128395157) 27 mmol/L 23-31 AGAP (test code = 2668577262) 10 2-16 BUN (test code = 4899291317) 21 mg/dL 7-23 GLUCOSE (test code = 4272814217) 122 mg/dL 70-110 H CREATININE (test code = 2160-0) 1.54 mg/dL 0.60-1.25 H TOTAL BILI (test code = 8199847381) 1.8 mg/dL 0.1-1.1 H CALCIUM (test code = 1790779077) 9.4 mg/dL 8.6-10.6 T PROTEIN (test code = 8152150531) 8.3 g/dL 6.3-8.2 H ALBUMIN (test code = 3028660112) 4.5 g/dL 3.5-5.0 ALK PHOS (test code = 3935544652) 93 U/L 34-122 ALTv (test code = 1742-6) 32 U/L 5-50 AST(SGOT) (test code = 0392712800) 60 U/L 13-40 H eGFR (test code = 16720-6) 52.3 mL/min/1.73m2 CKD-EPI eGFR (2020). Assuming creatinine has been stable day-to-day for at least three months, the eGFR indicates Category G3a (45 - 59 mL/min/1.73 m2) Lab Interpretation (test code = 37698-3) [facility] [id number] 22:09:06* Test Item Value Reference Range Interpretation Comme nts TROPONIN I (test code = 7373525810) 0.044 ng/mL <=0.034 H JACOB (test code [...] of biotin. Lab Interpretation (test code = 28257-3) Abnormal [facility] Metabolic Panel (NA, K, CL, CO2, GLUCOSE, BUN, CREATININE, CA)2024-09-18 21:57:04* Test Item Value Reference Range Interpretation Comme nts NA (test code = 6642212256) 142 mmol/L 135-145 K (test code = 8721450816) 3.4 mmol/L 3.5-5.0 L CL (test code = 1021239959) 106 mmol/L 98-108 CO2 TOTAL (test code = 5746143195) 28 mmol/L 23-31 AGAP (test code = 6319124995) 8 2-16 BUN (test code = 1553013075) 22 mg/dL 7-23 GLUCOSE (test code = 9615688862) 97 mg/dL 70-110 CREATININE (test code = 2160-0) 1.47 mg/dL 0.60-1.25 H CALCIUM (test code = 7585321441) 9.4 mg/dL 8.6-10.6 eGFR (test code = 26705-0) 55.3 mL/min/1.73m2 CKD-EPI eGFR (2020). Assuming creatinine has been stable day-to-day for at least three months, the eGFR indicates Category G3a (45 - 59 mL/min/1.73 m2) Lab Interpretation (test code = 20492-3) Abnormal [facility] with [id number] 21:37:26* Test Item Value Reference Range Interpretation [...] g/dL 31.2-35.0 L RDW-SD (test code = 22905-4) 56.8 fL 38.5-51.6 H RDW-CV (test code = 788-0) 19.5 % 12.1-15.4 H PLT (test code = 777-3) 172 150-328 MPV (test code = 06787-3) 11.0 fL 9.8-13.0 NRBC/100 WBC (test code = 6338810126) 0.0 0.0-10.0 NRBC x10^3 (test code = 7610699898) See_Comment [Automated messa ge] The system which generated this result transmitted reference range: 10*3/?L. The reference range was not used to interpret this result as normal/abnormal. GRAN MAT (NEUT) % (test code = 770-8) 51.0 % IMM GRAN % (test code = 3884610689) 0.20 % LYMPH % (test code = 736-9) 37.5 % MONO % (test code = 5905-5) 9.4 % EOS % (test code = 713-8) 1.5 % BASO % (test code = 706-2) 0.4 % GRAN MAT x10^3(ANC) (test code = 8826993579) 2.67 10*3/uL 1.99-6.95 IMM GRAN x10^3 (test code = 4049012721) 0.00-0.06 LYMPH x10^3 (test code = 731-0) 1.96 10*3/uL 1.09-3.23 MONO x10^3 (test code = 742-7) 0.49 10*3/uL 0.36-1.02 EOS x10^3 (test code = 711-2) 0.08 10*3/uL 0.06-0.53 BASO x10^3 (test code = 704-7) 0.01-0.09 Lab Interpretation (test code = 72146-5) [facility]normal [facility] ([facility]2024-08-20 03:40:37* Test Item Value Reference Range Interpretation Comme nts Height (test code = 8909051079) 74 in Weight (test code = 0339783576) 277 lbs Systolic BP (test code = 3214086528) 100 mmHg Diastolic BP (test code = 2917278743) 80 mmHg Heart Rate (test code = 6554103086) 82 bpm BSA (test code = 2885374855) 2.50 m2 LVIDD (test code = 4877973641) 6.40 cm Left Ventricular End Diastolic Volume by Teichholz Method (test code = 1293663) 209.3 mL IVS (test code = 0413706514) 1.19 cm Interventricular Septum Diastolic Thickness by 2D (test code = 5301035) 1.19 cm LVPWD (test code = 8671280000) 1.76 cm PW (test code = 7416414391) 1.76 cm 0.6-1.1 EF(Teich) (test code = 7256564806) 8.90 % LVIDS (test code = 5154629714) 6.20 cm Left Ventricular End Systolic Volume by Teichholz Method (test code = 9965215) 190.6 mL FS (test code = 0858493394) 4 % EF - 2D (test code = 50383608) 8.90 % Radiology Study observation (narrative) (test code = 47466-8) JACOB (test code = JACOB) ?Left?Ventricle: Left [...] mL of Lumason ultrasound enhancing agent used. [facility]2024-08-19 17:41:22* Test Item Value Reference Range Interpretation Comme nts POCT GLU (test code = 8499462011) 91 mg/dL 70-110 Lab Interpretation (test cod e = 81612-6) Normal [facility] TaylorTROPONIN [id number] 02:45:18* Test Item Value Reference Range Interpretation Comme nts TROPONIN I (test code = 3621263320) 0.589 ng/mL <=0.034 H JACOB (test code [...] of biotin. Lab Interpretation (test code = 87371-6) Abnormal [facility] TaylorXR CHEST 1 [id number] 02:25:26Exam: Chest (1 View), 08/18/2024 7:30 PM. Ordering Physician: JESSE SOLIZ. History: chest pain . Technique: One view of the chest. Comparison: Chest radiograph 08/09/2024. Findings: The right lung appears clear. Persistent opacities in the left lung base.No pneumothorax. Cardiac silhouette remains enlarged but stable. Left- sidedAICD. No acute osseous finding.[facility] TaylorN-TERMINAL [id number] 02:16:35* Test Item Value Reference Range Interpretation Comme nts NT-proBNP (test code = 97328-9) 4720 pg/mL <=125 H JACOB (test code = JACOB) Positive: Heart Failure Likely Lab Interpretation (test code = 02796-1) [facility]normal [facility] TaylorBASI METABOLIC PANEL (NA, K, CL, CO2, GLUCOSE, BUN, CREATININE, CA)2024-08-19 02:07:18* Test Item Value Reference Range Interpretation Comme nts NA (test code = 2723775686) 138 mmol/L 135-145 K (test code = 2772783867) 3.9 mmol/L 3.5-5.0 CL (test code = 7607419375) 106 mmol/L 98-108 CO2 TOTAL (test code = 0199954832) 25 mmol/L 23-31 AGAP (test code = 3942794535) 7 2-16 BUN (test code = 4457465561) 24 mg/dL 7-23 H GLUCOSE (test code = 0253720818) 106 mg/dL 70-110 CREATININE (test code = 2160-0) 1.48 mg/dL 0.60-1.25 H CALCIUM (test code = 9662632127) 9.0 mg/dL 8.6-10.6 eGFR (test code = 59670-0) 54.8 mL/min/1.73m2 CKD-EPI eGFR (2020). Assuming creatinine has been stable day-to-day for at least three months, the eGFR indicates Category G3a (45 - 59 mL/min/1.73 m2) Lab Interpretation (test code = 19366-3) Abnormal [facility] with [id number] 01:56:15* Test Item Value Reference Range Interpretation [...] 31.2 g/dL 31.2-35.0 RDW-SD (test code = 99943-0) 52.2 fL 38.5-51.6 H RDW-CV (test code = 788-0) 19.0 % 12.1-15.4 H PLT (test code = 777-3) 172 150-328 MPV (test code = 21302-6) 10.4 fL 9.8-13.0 NRBC/100 WBC (test code = 9593721325) 0.0 0.0-10.0 NRBC x10^3 (test code = 3754955550) See_Comment [Automated Exabeama ge] The system which generated this result transmitted reference range: 10*3/?L. The reference range was not used to interpret this result as normal/abnormal. GRAN MAT (NEUT) % (test code = 770-8) 49.8 % IMM GRAN % (test code = 4687362458) 0.20 % LYMPH % (test code = 736-9) 35.1 % MONO % (test code = 5905-5) 13.0 % EOS % (test code = 713-8) 1.5 % BASO % (test code = 706-2) 0.4 % GRAN MAT x10^3(ANC) (test code = 9649191420) 2.68 10*3/uL 1.99-6.95 IMM GRAN x10^3 (test code = 3990787684) 0.00-0.06 LYMPH x10^3 (test code = 731-0) 1.89 10*3/uL 1.09-3.23 MONO x10^3 (test code = 742-7) 0.70 10*3/uL 0.36-1.02 EOS x10^3 (test code = 711-2) 0.08 10*3/uL 0.06-0.53 BASO x10^3 (test code = 704-7) 0.01-0.09 Lab Interpretation (test code = 46878-2) Abnormal [facility] GLUCOSE (AUTOMATED)2024-08-15 17:49:45* Test Item Value Reference Range Interpretation Comme nts POCT GLU (test code = 7336813385) 128 mg/dL 70-110 H Lab Interpretation (test cod e = 75820-7) Abnormal [facility] GLUCOSE (AUTOMATED)2024-08-15 17:49:45* Test Item Value Reference Range Interpretation Comme nts POCT GLU (test code = 4277033907) 128 mg/dL 70-110 H Lab Interpretation (test cod e = 27524-7) Abnormal [facility] GLUCOSE (AUTOMATED)2024-08-15 13:49:08* Test Item Value Reference Range Interpretation Comme nts POCT GLU (test code = 0384386902) 97 mg/dL 70-110 Lab Interpretation (test cod e = 74576-1) Normal [facility] GLUCOSE (AUTOMATED)2024-08-15 13:49:08* Test Item Value Reference Range Interpretation Comme nts POCT GLU (test code = 5458738814) 97 mg/dL 70-110 Lab Interpretation (test cod e = 16997-4) Normal [facility] GLUCOSE (AUTOMATED)2024-08-15 02:32:08* Test Item Value Reference Range Interpretation Comme nts POCT GLU (test code = 3964238780) 115 mg/dL 70-110 H Lab Interpretation (test cod e = 16382-5) Abnormal [facility] GLUCOSE (AUTOMATED)2024-08-15 02:32:08* Test Item Value Reference Range Interpretation Comme nts POCT GLU (test code = 5753524586) 115 mg/dL 70-110 H Lab Interpretation (test cod e = 50790-8) Abnormal [facility] GLUCOSE (AUTOMATED)2024-08-14 23:24:41* Test Item Value Reference Range Interpretation Comme nts POCT GLU (test code = 8973581129) 98 mg/dL 70-110 Lab Interpretation (test cod e = 69990-5) Normal [facility] GLUCOSE (AUTOMATED)2024-08-14 23:24:41* Test Item Value Reference Range Interpretation Comme nts POCT GLU (test code = 0700664169) 98 mg/dL 70-110 Lab Interpretation (test cod e = 56590-9) Normal [facility] GLUCOSE (AUTOMATED)2024-08-14 18:36:12* Test Item Value Reference Range Interpretation Comme nts POCT GLU (test code = 1619926628) 113 mg/dL 70-110 H Lab Interpretation (test cod e = 58927-4) Abnormal [facility] GLUCOSE (AUTOMATED)2024-08-14 18:36:12* Test Item Value Reference Range Interpretation Comme nts POCT GLU (test code = 5912953214) 113 mg/dL 70-110 H Lab Interpretation (test cod e = 27437-4) Abnormal [facility] GLUCOSE (AUTOMATED)2024-08-14 14:46:10* Test Item Value Reference Range Interpretation Comme nts POCT GLU (test code = 8049485598) 98 mg/dL 70-110 Lab Interpretation (test cod e = 55949-0) Normal [facility] GLUCOSE (AUTOMATED)2024-08-14 14:46:10* Test Item Value Reference Range Interpretation Comme nts POCT GLU (test code = 6423371760) 98 mg/dL 70-110 Lab Interpretation (test cod e = 54061-3) Normal [facility] GLUCOSE (AUTOMATED)2024-08-14 03:15:38* Test Item Value Reference Range Interpretation Comme nts POCT GLU (test code = 9262515368) 148 mg/dL 70-110 H Lab Interpretation (test cod e = 60800-0) Abnormal [facility] GLUCOSE (AUTOMATED)2024-08-14 03:15:38* Test Item Value Reference Range Interpretation Comme nts POCT GLU (test code = 7576786092) 148 mg/dL 70-110 H Lab Interpretation (test cod e = 20937-8) Abnormal [facility] GLUCOSE (AUTOMATED)2024-08-13 19:10:07* Test Item Value Reference Range Interpretation Comme nts POCT GLU (test code = 9694544347) 138 mg/dL 70-110 H Lab Interpretation (test cod e = 05956-7) Abnormal [facility] GLUCOSE (AUTOMATED)2024-08-13 19:10:07* Test Item Value Reference Range Interpretation Comme nts POCT GLU (test code = 2701736834) 138 mg/dL 70-110 H Lab Interpretation (test cod e = 09743-9) Abnormal [facility] GLUCOSE (AUTOMATED)2024-08-13 14:46:09* Test Item Value Reference Range Interpretation Comme nts POCT GLU (test code = 4739703530) 81 mg/dL 70-110 Lab Interpretation (test cod e = 42642-5) Normal [facility] GLUCOSE (AUTOMATED)2024-08-13 14:46:09* Test Item Value Reference Range Interpretation Comme nts POCT GLU (test code = 4405808112) 81 mg/dL 70-110 Lab Interpretation (test cod e = 34307-7) Normal [facility] TaylorElectrophysiology tmbfkmdun0593-26-78 02:56:09 Supraventricular Tachycardia AblationProcedure: Atrial Flutter Ablation [...] of the right atrium was performed with Riskthinktank catheter, ?A series of RF ablation lesions [...] of the right atrium was performed with Sabas catheter, ?A series of RF ablation lesions [...] MDFollow up in the arrhythmia clinic as scheduled[facility] TaylorIntubation2025-01-11 01:37:00Cande Marley MD ? ? 08/12/2024 ?7:53 PMIntubationDate/Time: 08/12/2024 7:37 PMUrgency: elective Airway not difficult General Information and Staff Patient location during procedure: ORPerformed: resident/[employer]ER MACHINE Performed by: Cande Marley MDAuthorized by: Garret [...] CommentsSmooth, atraumatic, dentition and lips unchanged from pre-op.[facility] TaylorTransesophageal echo (JOSE)2024-08-12 22:17:27* Test Item Value Reference Range Interpretation Comme nts Height (test code = 3016749070) 74 in Weight (test code = 3176650881) 284 lbs Systolic BP (test code = 7943218213) 143 mmHg Diastolic BP (test code = 4999968716) 95 mmHg Heart Rate (test code = 4115180884) 70 bpm Radiology Study observation (narrative) (test code = 32717-4) JACOB (test code = JACOB) ?Left?Ventricle: Left ventricle is dilated. Reduced systolic function. ?Right?Ventricle: IMMIGRATION JUDGE leads appreciated. Freely mobile filamentous structure is [...] captured. The probe was inserted by the recycling crew supervisor. There was no probe insertion difficulty.There were 1 attempts to insert the probe. Probe in 1525. Probe out 1541. Moderate sedation was given. 4% Lidocaine was used for local oropharyngeal anesthesia. 2 mg of midazolam and 50 mcg of Fentanyl were administered during the study. There were no complications during the procedure.KR [facility] TaylorTransesophageal echo (JOSE)2024-08-12 22:17:27 * Test Item Value Reference Range Interpretation Comme nts Height (test code = 9912928394) 74 in Weight (test code = 2658264366) 284 lbs Systolic BP (test code = 9226336895) 143 mmHg Diastolic BP (test code = 9799341207) 95 mmHg Heart Rate (test code = 6247355814) 70 bpm Radiology Study observation (narrative) (test code = 59931-9) JACOB (test code = JACOB) ?Left?Ventricle: Left ventricle is dilated. Reduced systolic function. ?Right?Ventricle: IMMIGRATION JUDGE leads appreciated. Freely mobile filamentous structure is [...] captured. The probe was inserted by the recycling crew supervisor. There was no probe insertion difficulty.There were 1 attempts to insert the probe. Probe in 1525. Probe out 1541. Moderate sedation was given. 4% Lidocaine was used for local oropharyngeal anesthesia. 2 mg of midazolam and 50 mcg of Fentanyl were administered during the study. There were no complications during the procedure.KR [facility] TaylorArterial Gidv0570-65-32 13:30:00Cande Marley MD ? ? 08/12/2024 ?7:52 [...] ?Patient tolerated procedure well with no complications [facility] TaylorMagnesium2025-01-10 09:18:21* Test Item Value Reference Range Interpretation Comme nts MAGNESIUM (test code = 6281979197) 2.0 mg/dL 1.7-2.4 Lab Interpretation (test cod e = 81169-7) Normal [facility] TaylorBasi Metabolic Panel (NA, K, CL, CO2, GLUCOSE, BUN, CREATININE, CA)2024-08-12 09:18:21* Test Item Value Reference Range Interpretation Comme nts NA (test code = 8580060971) 136 mmol/L 135-145 K (test code = 0951350267) 3.9 mmol/L 3.5-5.0 CL (test code = 7446172118) 106 mmol/L 98-108 CO2 TOTAL (test code = 7415375570) 22 mmol/L 23-31 L AGAP (test code = 1096984462) 8 2-16 BUN (test code = 5113053025) 39 mg/dL 7-23 H GLUCOSE (test code = 6938203355) 96 mg/dL 70-110 CREATININE (test code = 2160-0) 2.09 mg/dL 0.60-1.25 H CALCIUM (test code = 1878422497) 8.4 mg/dL 8.6-10.6 L eGFR (test code = 82113-4) 36.2 mL/min/1.73m2 CKD-EPI eGFR (2020). Assuming creatinine has been stable day-to-day for at least three months, the eGFR indicates Category G3b (30 - 44 mL/min/1.73 m2) Lab Interpretation (test code = 35716-2) Abnormal [facility] TaylorMagnesium2025-01-10 09:18:21* Test Item Value Reference Range Interpretation Comme nts MAGNESIUM (test code = 7796117083) 2.0 mg/dL 1.7-2.4 Lab Interpretation (test cod e = 99196-4) Normal [facility] (NA, K, CL, CO2, GLUCOSE, BUN, CREATININE, CA)2024-08-12 09:18:21* Test Item Value Reference Range Interpretation Comme nts NA (test code = 2764512710) 136 mmol/L 135-145 K (test code = 5242951323) 3.9 mmol/L 3.5-5.0 CL (test code = 9345004440) 106 mmol/L 98-108 CO2 TOTAL (test code = 5978715606) 22 mmol/L 23-31 L AGAP (test code = 4375385736) 8 2-16 BUN (test code = 2962638820) 39 mg/dL 7-23 H GLUCOSE (test code = 2025756979) 96 mg/dL 70-110 CREATININE (test code = 2160-0) 2.09 mg/dL 0.60-1.25 H CALCIUM (test code = 5242893690) 8.4 mg/dL 8.6-10.6 L eGFR (test code = 26228-7) 36.2 mL/min/1.73m2 CKD-EPI eGFR (2020). Assuming creatinine has been stable day-to-day for at least three months, the eGFR indicates Category G3b (30 - 44 mL/min/1.73 m2) Lab Interpretation (test code = 12738-6) Abnormal [facility] TayloraPTT (for use with Heparin Drip)2024-08-12 08:53:35* Test Item Value Reference Range Interpretation Comme [facility] APTT Patient (test code = 3173-2) 78 26-36 H Lab Interpretation (test cod e = 40760-5) Abnormal [facility] TayloraPTT (for use with Heparin Drip)2024-08-12 08:53:35* Test Item Value Reference Range Interpretation Comme [facility] APTT Patient (test code = 3173-2) 78 26-36 H Lab Interpretation (test cod e = 85541-1) Abnormal [facility] with Mzpg3761-41-68 08:46:58* Test Item Value Reference Range Interpretation Comme [facility] WBC (test code = 6690-2) 5.14 4.20-10.70 RBC (test code = 789-8) 5.24 4.26-5.52 HGB (test code = 718-7) 12.8 g/dL 12.2-16.4 HCT (test code = 4544-3) 42.0 % 38.4-49.3 MCV (test code = 787-2) 80.2 fL 81.7-95.6 L MCH (test code = 785-6) 24.4 pg 26.1-32.7 L MCHC (test code = 786-4) 30.5 g/dL 31.2-35.0 L RDW-SD (test code = 16466-0) 50.0 fL 38.5-51.6 RDW-CV (test code = 788-0) 18.1 % 12.1-15.4 H PLT (test code = 777-3) 193 150-328 MPV (test code = 79350-0) 9.9 fL 9.8-13.0 NRBC/100 WBC (test code = 6145042446) 1.0 0.0-10.0 NRBC x10^3 (test code = 5312128367) 0.05 See_Comment [Automated messa ge] The system which generated this result transmitted reference range: 10*3/?L. The reference range was not used to interpret this result as normal/abnormal. GRAN MAT (NEUT) % (test code = 770-8) 47.0 % IMM GRAN % (test code = 2122076819) 0.20 % LYMPH % (test code = 736-9) 39.1 % MONO % (test code = 5905-5) 11.5 % EOS % (test code = 713-8) 1.8 % BASO % (test code = 706-2) 0.4 % GRAN MAT x10^3(ANC) (test code = 2636104974) 2.42 10*3/uL 1.99-6.95 IMM GRAN x10^3 (test code = 5329736730) 0.00-0.06 LYMPH x10^3 (test code = 731-0) 2.01 10*3/uL 1.09-3.23 MONO x10^3 (test code = 742-7) 0.59 10*3/uL 0.36-1.02 EOS x10^3 (test code = 711-2) 0.09 10*3/uL 0.06-0.53 BASO x10^3 (test code = 704-7) 0.01-0.09 Lab Interpretation (test code = 23507-7) Abnormal [facility] with Ygiq0700-99-53 08:46:58* Test Item Value Reference Range Interpretation [...] g/dL 31.2-35.0 L RDW-SD (test code = 76793-9) 50.0 fL 38.5-51.6 RDW-CV (test code = 788-0) 18.1 % 12.1-15.4 H PLT (test code = 777-3) 193 150-328 MPV (test code = 71365-9) 9.9 fL 9.8-13.0 NRBC/100 WBC (test code = 8104463447) 1.0 0.0-10.0 NRBC x10^3 (test code = 2633349175) 0.05 See_Comment [Automated messa ge] The system which generated this result transmitted reference range: 10*3/?L. The reference range was not used to interpret this result as normal/abnormal. GRAN MAT (NEUT) % (test code = 770-8) 47.0 % IMM GRAN % (test code = 8545605267) 0.20 % LYMPH % (test code = 736-9) 39.1 % MONO % (test code = 5905-5) 11.5 % EOS % (test code = 713-8) 1.8 % BASO % (test code = 706-2) 0.4 % GRAN MAT x10^3(ANC) (test code = 4778922699) 2.42 10*3/uL 1.99-6.95 IMM GRAN x10^3 (test code = 5785667874) 0.00-0.06 LYMPH x10^3 (test code = 731-0) 2.01 10*3/uL 1.09-3.23 MONO x10^3 (test code = 742-7) 0.59 10*3/uL 0.36-1.02 EOS x10^3 (test code = 711-2) 0.09 10*3/uL 0.06-0.53 BASO x10^3 (test code = 704-7) 0.01-0.09 Lab Interpretation (test code = 75696-4) [facility] Gjfdsxb8350-87-79 22:54:57* Test Item Value Reference Range Interpretation Comme nts Height (test code = 9554259804) 74 in Weight (test code = 5862624072) 284 lbs Systolic BP (test code = 6294159099) 106 mmHg Diastolic BP (test code = 1182163488) 86 mmHg Heart Rate (test code = 2315599963) 71 bpm BSA (test code = 4664659667) 2.5 m2 LVIDD (test code = 8345840908) 7.50 cm Left Ventricular End Diastolic Volume by Teichholz Method (test code = 0256691) 301.3 mL IVS (test code = 6291941809) 1.21 cm Interventricular Septum Diastolic Thickness by 2D (test code = 5313232) 1.21 cm LVPWD (test code = 5590165256) 0.66 cm PW (test code = 9335693565) 0.66 cm 0.6-1.1 EF(Teich) (test code = 3651700398) 6.70 % LVIDS (test code = 3508569388) 7.30 cm Left Ventricular End Systolic Volume by Teichholz Method (test code = 0391297) 281.0 mL FS (test code = 0845658394) 3 % EF - 2D (test code = 43844151) 6.70 % Radiology Study observation (narrative) (test code = 38593-6) JACOB (test code = JACOB) ?Left?Ventricle: Left [...] septal, apical inferior, apical lateral and apex. [facility] TaylorTransthor[facility] (TTE) Lcyvkox5238-49-86 22:54:57* Test Item Value Reference Range Interpretation Comme nts Height (test code = 8926940408) 74 in Weight (test code = 3035859640) 284 lbs Systolic BP (test code = 0058913375) 106 mmHg Diastolic BP (test code = 6645674872) 86 mmHg Heart Rate (test code = 8559144116) 71 bpm BSA (test code = 8329971996) 2.5 m2 LVIDD (test code = 6746964441) 7.50 cm Left Ventricular End Diastolic Volume by Teichholz Method (test code = 5016142) 301.3 mL IVS (test code = 6588211617) 1.21 cm Interventricular Septum Diastolic Thickness by 2D (test code = 8227465) 1.21 cm LVPWD (test code = 4951680174) 0.66 cm PW (test code = 9266902549) 0.66 cm 0.6-1.1 EF(Teich) (test code = 6997067243) 6.70 % LVIDS (test code = 0233362227) 7.30 cm Left Ventricular End Systolic Volume by Teichholz Method (test code = 4939836) 281.0 mL FS (test code = 7823691472) 3 % EF - 2D (test code = 49130433) 6.70 % Radiology Study observation (narrative) (test code = 40274-9) JACOB (test code = JACOB) ?Left?Ventricle: Left [...] septal, apical inferior, apical lateral and apex. [facility] TaylorUric Cflh9324-10-01 17:27:48* Test Item Value Reference Range Interpretation Comme nts URIC ACID (test code = 2772913229) 8.3 mg/dL 3.6-8.0 H Lab Interpretation (test cod e = 58865-7) Abnormal [facility] TaylorUric Mjzf2724-54-66 17:27:48* Test Item Value Reference Range Interpretation Comme nts URIC ACID (test code = 4673757562) 8.3 mg/dL 3.6-8.0 H Lab Interpretation (test cod e = 24809-9) Abnormal [facility] TaylorMagnesium2025-01-09 15:15:49* Test Item Value Reference Range Interpretation Comme nts MAGNESIUM (test code = 0610405029) 2.0 mg/dL 1.7-2.4 Lab Interpretation (test cod e = 49523-1) [facility] 15:15:49* Test Item Value Reference Range Interpretation Comme nts MAGNESIUM (test code = 9388934978) 2.0 mg/dL 1.7-2.4 Lab Interpretation (test cod e = 24481-8) Normal [facility] TaylorLactic Acid Whole Ecsmm3214-85-22 12:39:41* Test Item Value Reference Range Interpretation Comme nts LACTIC ACID (test code = 0308530526) 1.55 mmol/L 0.50-2.20 Lab Interpretation (test cod e = 60015-4) Normal [facility] TaylorLactic Acid Whole Kiuuo2914-39-70 12:39:41* Test Item Value Reference Range Interpretation Comme nts LACTIC ACID (test code = 8410506008) 1.55 mmol/L 0.50-2.20 Lab Interpretation (test cod e = 78407-7) Normal [facility] TaylorFerritin Bxgpa1614-92-70 11:59:49* Test Item Value Reference Range Interpretation Comme nts FERRITIN (test code = 2302228317) 22.8 ng/mL 18.0-464.0 JACOB (test code = JACOB) Biotin has been reported to cause a negative bias, interpret results relative to patient's use of biotin. Lab Interpretation (test code = 86480-9) Normal [facility] Arpql7293-07-17 11:59:49* Test Item Value Reference Range Interpretation Comme nts FERRITIN (test code = 2089084869) 22.8 ng/mL 18.0-464.0 JACOB (test code = JACOB) Biotin has been reported to cause a negative bias, interpret results relative to patient's use of biotin. Lab Interpretation (test code = 72944-5) Normal [facility] TaylorN-Terminal Zlw-Stv7469-45-09 11:44:28* Test Item Value Reference Range Interpretation Comme nts NT-proBNP (test code = 01350-3) 4990 pg/mL <=125 H JACOB (test code = JACOB) Positive: Heart Failure Likely Lab Interpretation (test code = 00584-0) Abnormal [facility] TaylorN-Terminal Bap-Rfu8361-29-09 11:44:28* Test Item Value Reference Range Interpretation Comme nts NT-proBNP (test code = 82647-3) 4990 pg/mL <=125 H JACOB (test code = JACOB) Positive: Heart Failure Likely Lab Interpretation (test code = 95784-6) Abnormal [facility] TaylorTroponin [id number] 11:36:47* Test Item Value Reference Range Interpretation Comme nts TROPONIN I (test code = 6866489779) 0.040 ng/mL <=0.034 H JACOB (test code [...] of biotin. Lab Interpretation (test code = 05297-3) Abnormal [facility] [id number] 11:36:47* Test Item Value Reference Range Interpretation Comme nts TROPONIN I (test code = 4750323801) 0.040 ng/mL <=0.034 H JACOB (test code [...] of biotin. Lab Interpretation (test code = 71037-0) Abnormal [facility] [id number] 11:32:09* Test Item Value Reference Range Interpretation Comme nts IRON (test code = 1200271454) 68 ug/dL 50-160 TIBC (test code = 8230510071) 334 ug/dL 250-410 % FE SAT (test code = 9582060614) 20 % 20-50 Lab Interpretation (test cod e = 63119-8) Normal [facility] [id number] 11:32:09* Test Item Value Reference Range Interpretation Comme nts IRON (test code = 6861319542) 68 ug/dL 50-160 TIBC (test code = 0033769763) 334 ug/dL 250-410 % FE SAT (test code = 3014765014) 20 % 20-50 Lab Interpretation (test cod e = 02312-2) Normal [facility] Metabolic Panel (NA, K, CL, CO2, GLUCOSE, BUN, CREATININE, CA)2024-08-11 11:32:09* Test Item Value Reference Range Interpretation Comme nts NA (test code = 5517409897) 137 mmol/L 135-145 K (test code = 7048111151) 4.1 mmol/L 3.5-5.0 CL (test code = 4218086161) 106 mmol/L 98-108 CO2 TOTAL (test code = 1277291032) 23 mmol/L 23-31 AGAP (test code = 4105423937) 8 2-16 BUN (test code = 7711665815) 40 mg/dL 7-23 H GLUCOSE (test code = 3765515007) 89 mg/dL 70-110 CREATININE (test code = 2160-0) 2.30 mg/dL 0.60-1.25 H CALCIUM (test code = 5912190149) 8.6 mg/dL 8.6-10.6 eGFR (test code = 71824-4) 32.3 mL/min/1.73m2 CKD-EPI eGFR (2020). Assuming creatinine has been stable day-to-day for at least three months, the eGFR indicates Category G3b (30 - 44 mL/min/1.73 m2) Lab Interpretation (test code = 20781-7) Abnormal [facility] Metabolic Panel (NA, K, CL, CO2, GLUCOSE, BUN, CREATININE, CA)2024-08-11 11:32:09* Test Item Value Reference Range Interpretation Comme nts NA (test code = 0610516955) 137 mmol/L 135-145 K (test code = 4258278053) 4.1 mmol/L 3.5-5.0 CL (test code = 0434920274) 106 mmol/L 98-108 CO2 TOTAL (test code = 4693609173) 23 mmol/L 23-31 AGAP (test code = 6675687615) 8 2-16 BUN (test code = 3346857918) 40 mg/dL 7-23 H GLUCOSE (test code = 1112342384) 89 mg/dL 70-110 CREATININE (test code = 2160-0) 2.30 mg/dL 0.60-1.25 H CALCIUM (test code = 0797463669) 8.6 mg/dL 8.6-10.6 eGFR (test code = 18150-8) 32.3 mL/min/1.73m2 CKD-EPI eGFR (2020). Assuming creatinine has been stable day-to-day for at least three months, the eGFR indicates Category G3b (30 - 44 mL/min/1.73 m2) Lab Interpretation (test code = 14545-0) [facility] Drip[facility]2024-08-11 11:16:08* Test Item Value Reference Range Interpretation Comme [facility] APTT Patient (test code = 3173-2) 105 26-36 HH Lab Interpretation (test cod e = 61620-2) [facility] use with Heparin Drip[facility]2024-08-11 11:16:08* Test Item Value Reference Range Interpretation Comme [facility] APTT Patient (test code = 3173-2) 105 26-36 HH Lab Interpretation (test cod e = 26191-9) Abnormal [facility] without [id number] 11:04:03* Test Item Value Reference Range Interpretation Comme [facility] WBC (test code [...] 777-3) 207 150-328 MPV (test code = 72632-9) 10.3 fL 9.8-13.0 RDW-CV (test code = 788-0) 17.8 % 12.1-15.4 H RDW-SD (test code = 51806-4) 50.3 fL 38.5-51.6 NRBC x10^3 (test code = 4160846235) 0.02 See_Comment [Automated Exabeama ge] The system which generated this result transmitted reference range: 10*3/?L. The reference range was not used to interpret this result as normal/abnormal. NRBC/100 WBC (test code = 9550162587) 0.4 0.0-10.0 IPF % (test code = 3835148557) Lab Interpretation (test code = 77012-8) Abnormal [facility] without [id number] 11:04:03* Test Item Value Reference Range Interpretation [...] 777-3) 207 150-328 MPV (test code = 20531-4) 10.3 fL 9.8-13.0 RDW-CV (test code = 788-0) 17.8 % 12.1-15.4 H RDW-SD (test code = 76792-3) 50.3 fL 38.5-51.6 NRBC x10^3 (test code = 8819988199) 0.02 See_Comment [Automated Exabeama ge] The system which generated this result transmitted reference range: 10*3/?L. The reference range was not used to interpret this result as normal/abnormal. NRBC/100 WBC (test code = 6038719784) 0.4 0.0-10.0 IPF % (test code = 3717838393) Lab Interpretation (test code = 75354-1) [facility]24-[facility]11 04:18:16* Test Item Value Reference Range Interpretation Comme nts APTT Patient (test code = 3173-2) -36 HH Lab Interpretation (test cod e = 87842-8) [facility] use with Heparin Drip[facility]2024-08-11 04:18:16* Test Item Value Reference Range Interpretation Comme nts APTT Patient (test code = 3173-2) -36 HH Lab Interpretation (test cod e = 75279-5) [facility]normal [facility] TaylorL[facility] Acid Whole Bzvhb8182-43-11 04:03:38* Test Item Value Reference Range Interpretation Comme nts LACTIC ACID (test code = 6749051753) 1.78 mmol/L 0.50-2.20 Lab Interpretation (test cod e = 56398-4) Normal [facility] TaylorLactic Acid Whole Bigit5416-49-02 04:03:38* Test Item Value Reference Range Interpretation Comme nts LACTIC ACID (test code = 0541064276) 1.78 mmol/L 0.50-2.20 Lab Interpretation (test cod e = 46603-1) [id number]:42:57* Test Item Value Reference Range Interpretation Comme nts TROPONIN I (test code = 4957328250) 0.049 ng/mL <=0.034 H JACOB (test code [...] of biotin. Lab Interpretation (test code = 03829-4) Abnormal [facility] [id number] 19:42:57* Test Item Value Reference Range Interpretation Comme nts TROPONIN I (test code = 7503980005) 0.049 ng/mL <=0.034 H JACOB (test code [...] of biotin. Lab Interpretation (test code = 31583-9) Abnormal [facility] TaylorN-TERMINAL WOW-[id number] 19:40:35* Test Item Value Reference Range Interpretation Comme nts NT-proBNP (test code = 26225-9) 3490 pg/mL <=125 H JACOB (test code = JACOB) Positive: Heart Failure Likely Lab Interpretation (test code = 77609-0) Abnormal [facility] Taylor[facility]-TERMINAL VZR-[id number] 19:40:35* Test Item Value Reference Range Interpretation Comme nts NT-proBNP (test code = 87597-6) 3490 pg/mL <=125 H JACOB (test code = JACOB) Positive: Heart Failure Likely Lab Interpretation (test code = 41909-8) Abnormal [facility] TaylorMagnesium2025-01-07 19:32:31* Test Item Value Reference Range Interpretation Comme nts MAGNESIUM (test code = 0104709099) 1.9 mg/dL 1.7-2.4 Lab Interpretation (test cod e = 78051-1) Normal [facility]2025-01-07 19:32:31* Test Item Value Reference Range Interpretation Comme nts MAGNESIUM (test code = 4173195585) 1.9 mg/dL 1.7-2.4 Lab Interpretation (test cod e = 18978-5) Normal [facility] Taylor[facility] METABOLIC PANEL (47988)2024-08-09 19:32:11* Test Item Value Reference Range Interpretation Comme nts NA (test code = 0107009370) 141 mmol/L 135-145 K (test code = 3141802928) 4.4 mmol/L 3.5-5.0 CL (test code = 4126299499) 109 mmol/L 98-108 H CO2 TOTAL (test code = 1956297045) 23 mmol/L 23-31 AGAP (test code = 7303208982) 9 2-16 BUN (test code = 6828031648) 29 mg/dL 7-23 H GLUCOSE (test code = 7665366274) 113 mg/dL 70-110 H CREATININE (test code = 2160-0) 1.76 mg/dL 0.60-1.25 H TOTAL BILI (test code = 2582044435) 1.6 mg/dL 0.1-1.1 H CALCIUM (test code = 4725845742) 9.0 mg/dL 8.6-10.6 T PROTEIN (test code = 7134356298) 8.0 g/dL 6.3-8.2 ALBUMIN (test code = 4231996677) 4.3 g/dL 3.5-5.0 ALK PHOS (test code = 0666561958) 60 U/L 34-122 ALTv (test code = 1742-6) 18 U/L 5-50 AST(SGOT) (test code = 4997279713) 36 U/L 13-40 eGFR (test code = 66893-9) 44.5 mL/min/1.73m2 Lab Interpretation (test cod e = 25333-8) [facility] (79057)2024-08-09 19:32:11* Test Item Value Reference Range Interpretation Comme nts NA (test code = 0328269048) 141 mmol/L 135-145 K (test code = 0777460523) 4.4 mmol/L 3.5-5.0 CL (test code = 7141233529) 109 mmol/L 98-108 H CO2 TOTAL (test code = 6538468468) 23 mmol/L 23-31 AGAP (test code = 5481807003) 9 2-16 BUN (test code = 0615479218) 29 mg/dL 7-23 H GLUCOSE (test code = 5379242046) 113 mg/dL 70-110 H CREATININE (test code = 2160-0) 1.76 mg/dL 0.60-1.25 H TOTAL BILI (test code = 5699755798) 1.6 mg/dL 0.1-1.1 H CALCIUM (test code = 5051869036) 9.0 mg/dL 8.6-10.6 T PROTEIN (test code = 3071563030) 8.0 g/dL 6.3-8.2 ALBUMIN (test code = 6194208206) 4.3 g/dL 3.5-5.0 ALK PHOS (test code = 4533634097) 60 U/L 34-122 ALTv (test code = 1742-6) 18 U/L 5-50 AST(SGOT) (test code = 1731411676) 36 U/L 13-40 eGFR (test code = 57737-8) 44.5 mL/min/1.73m2 Lab Interpretation (test cod e = 84421-8) Abnormal [facility] WITH [id number] 19:13:50* Test Item Value Reference Range Interpretation [...] g/dL 31.2-35.0 L RDW-SD (test code = 77291-2) 49.9 fL 38.5-51.6 RDW-CV (test code = 788-0) 17.8 % 12.1-15.4 H PLT (test code = 777-3) 238 150-328 MPV (test code = 67423-3) 10.4 fL 9.8-13.0 NRBC/100 WBC (test code = 6398810539) 0.4 0.0-10.0 NRBC x10^3 (test code = 4893202684) 0.02 See_Comment [Automated messa ge] The system which generated this result transmitted reference range: 10*3/?L. The reference range was not used to interpret this result as normal/abnormal. GRAN MAT (NEUT) % (test code = 770-8) 42.9 % IMM GRAN % (test code = 6543596287) 0.00 % LYMPH % (test code = 736-9) 44.3 % MONO % (test code = 5905-5) 10.9 % EOS % (test code = 713-8) 1.3 % BASO % (test code = 706-2) 0.6 % GRAN MAT x10^3(ANC) (test code = 1522332525) 2.01 10*3/uL 1.99-6.95 IMM GRAN x10^3 (test code = 8088313476) 0.00-0.06 LYMPH x10^3 (test code = 731-0) 2.08 10*3/uL 1.09-3.23 MONO x10^3 (test code = 742-7) 0.51 10*3/uL 0.36-1.02 EOS x10^3 (test code = 711-2) 0.06 10*3/uL 0.06-0.53 BASO x10^3 (test code = 704-7) 0.03 10*3/uL 0.01-0.09 Lab Interpretation (test code = 76588-9) Abnormal [facility] WITH [id number] 19:13:50* Test Item Value Reference Range Interpretation [...] g/dL 31.2-35.0 L RDW-SD (test code = 90928-2) 49.9 fL 38.5-51.6 RDW-CV (test code = 788-0) 17.8 % 12.1-15.4 H PLT (test code = 777-3) 238 150-328 MPV (test code = 40376-1) 10.4 fL 9.8-13.0 NRBC/100 WBC (test code = 7379118831) 0.4 0.0-10.0 NRBC x10^3 (test code = 9578009258) 0.02 See_Comment [Automated messa ge] The system which generated this result transmitted reference range: 10*3/?L. The reference range was not used to interpret this result as normal/abnormal. GRAN MAT (NEUT) % (test code = 770-8) 42.9 % IMM GRAN % (test code = 0333858116) 0.00 % LYMPH % (test code = 736-9) 44.3 % MONO % (test code = 5905-5) 10.9 % EOS % (test code = 713-8) 1.3 % BASO % (test code = 706-2) 0.6 % GRAN MAT x10^3(ANC) (test code = 7446944513) 2.01 10*3/uL 1.99-6.95 IMM GRAN x10^3 (test code = 2412074818) 0.00-0.06 LYMPH x10^3 (test code = 731-0) 2.08 10*3/uL 1.09-3.23 MONO x10^3 (test code = 742-7) 0.51 10*3/uL 0.36-1.02 EOS x10^3 (test code = 711-2) 0.06 10*3/uL 0.06-0.53 BASO x10^3 (test code = 704-7) 0.03 10*3/uL 0.01-0.09 Lab Interpretation (test code = 02899-0) [facility]normal [facility] 1 [id number] 19:13:47XR CHEST 1 VW COMPARISON: No comparison available Ordering provider: MICHELLE MIRANDA CLINICAL INDICATIONS: cough TECHNIQUE: Appropriate radiographic technique and conforming to ALARA FINDINGS: ? Marked chronic cardiomegaly since 06/01/2022 with permanent transvenouspacemaker. Otherwise the lungs areclear and without acute chest disease.[facility] 1 [id number] 19:13:47XR CHEST 1 VW COMPARISON: No comparison available Ordering provider: MICHELLE MIRANDA CLINICAL INDICATIONS: cough TECHNIQUE: Appropriate radiographic technique and conforming to ALARA FINDINGS: ? Marked chronic cardiomegaly since 06/01/2022 with permanent transvenouspacemaker. Otherwise the lungs areclear and without acute chest disease.[facility] Taylor[facility] Hwfq5678-60-88 17:27:00Michelle Miranda MD ? ? 08/10/2024 12:46 [...] of separately billable procedures and treating other patients.[facility] GLUCOSE (AUTOMATED)2024-08-01 22:11:49* Test Item Value Reference Range Interpretation Comme nts POCT GLU (test code = 0520069148) 92 mg/dL 70-110 Lab Interpretation (test cod e = 99306-8) Normal [facility] GLUCOSE (AUTOMATED)2024-08-01 18:45:20* Test Item Value Reference Range Interpretation Comme nts POCT GLU (test code = 8703010202) 92 mg/dL 70-110 Lab Interpretation (test cod e = 40668-2) Normal [facility] GLUCOSE (AUTOMATED)2024-08-01 14:57:50* Test Item Value Reference Range Interpretation Comme nts POCT GLU (test code = 8427244336) 96 mg/dL 70-110 Lab Interpretation (test cod e = 52225-8) Normal [facility] GLUCOSE (AUTOMATED)2024-08-01 02:24:20* Test Item Value Reference Range Interpretation Comme nts POCT GLU (test code = 8889837358) 108 mg/dL 70-110 Lab Interpretation (test cod e = 20856-4) Normal [facility] TaylorTroponin [id number] 01:39:46* Test Item Value Reference Range Interpretation Comme nts TROPONIN I (test code = 8623530903) 0.049 ng/mL <=0.034 H JACOB (test code [...] of biotin. Lab Interpretation (test code = 91589-0) Abnormal [facility] TaylorN-Terminal Crp-Aoa2509-13-30 01:39:46* Test Item Value Reference Range Interpretation Comme nts NT-proBNP (test code = 18576-9) 2590 pg/mL <=125 H JACOB (test code = JACOB) Positive: Heart Failure Likely Lab Interpretation (test code = 70696-1) [facility]normal [facility] TaylorComp. Metabolic Panel (20047)2024-08-01 01:26:49* Test Item Value Reference Range Interpretation Comme nts NA (test code = 3314374490) 141 mmol/L 135-145 K (test code = 4145937597) 4.5 mmol/L 3.5-5.0 CL (test code = 8474568578) 110 mmol/L 98-108 H CO2 TOTAL (test code = 8588609114) 24 mmol/L 23-31 AGAP (test code = 2825245870) 7 2-16 BUN (test code = 0484864963) 26 mg/dL 7-23 H GLUCOSE (test code = 6045562006) 95 mg/dL 70-110 CREATININE (test code = 2160-0) 1.36 mg/dL 0.60-1.25 H TOTAL BILI (test code = 0143671201) 0.8 mg/dL 0.1-1.1 CALCIUM (test code = 7146838700) 9.1 mg/dL 8.6-10.6 T PROTEIN (test code = 3243778734) 6.8 g/dL 6.3-8.2 ALBUMIN (test code = 3926975854) 3.6 g/dL 3.5-5.0 ALK PHOS (test code = 5395285662) 71 U/L 34-122 ALTv (test code = 1742-6) 19 U/L 5-50 AST(SGOT) (test code = 7741500212) 28 U/L 13-40 eGFR (test code = 73104-8) 60.7 mL/min/1.73m2 CKD-EPI eGFR (2020). Assuming creatinine has been stable day-to-day for at least three months, the eGFR indicates Category G2 (60 - 89 mL/min/1.73 m2) Lab Interpretation (test code = 94839-0) Abnormal [facility] TaylorMagnesium2024-12-30 01:26:49* Test Item Value Reference Range Interpretation Comme nts MAGNESIUM (test code = 4743757158) 1.7 mg/dL 1.7-2.4 Lab Interpretation (test cod e = 39683-9) Normal [facility] TaylorProthrombin Time / [id number] 01:06:47* Test Item Value Reference Range Interpretation Comme [facility] PROTIME PATIENT (test code = 5964-2) 12.4 10.1-12.6 INR (test code = 6301-6) 1.1 Normal INR <1.1; Warfarin Therapeutic range 2.0 to 3.0 or 2.5 to 3.5, depending upon the indications. Lab Interpretation (test code = 27516-5) Normal [facility] TayloraPTT2024-12-30 01:06:47* Test Item Value Reference Range Interpretation Comme [facility] APTT Patient (test code = 3173-2) 29 -36 Lab Interpretation (test cod e = 85093-7) Normal [facility] TaylorCbc with [id number] 00:57:44* Test Item Value Reference Range Interpretation Comme nts WBC (test code = 6690-2) 6.40 4.20-10.70 RBC (test code = 789-8) 5.75 4.26-5.52 H HGB (test code = 718-7) 14.1 g/dL 12.2-16.4 HCT (test code = 4544-3) 45.0 % 38.4-49.3 MCV (test code = 787-2) 78.3 fL 81.7-95.6 L MCH (test code = 785-6) 24.5 pg 26.1-32.7 L MCHC (test code = 786-4) 31.3 g/dL 31.2-35.0 RDW-SD (test code = 01784-9) 47.4 fL 38.5-51.6 RDW-CV (test code = 788-0) 17.5 % 12.1-15.4 H PLT (test code = 777-3) 239 150-328 MPV (test code = 12788-1) 10.1 fL 9.8-13.0 NRBC/100 WBC (test code = 2836255685) 0.0 0.0-10.0 NRBC x10^3 (test code = 6236703764) See_Comment [Automated messa ge] The system which generated this result transmitted reference range: 10*3/?L. The reference range was not used to interpret this result as normal/abnormal. GRAN MAT (NEUT) % (test code = 770-8) 50.4 % IMM GRAN % (test code = 4568884362) 0.20 % LYMPH % (test code = 736-9) 37.8 % MONO % (test code = 5905-5) 9.5 % EOS % (test code = 713-8) 1.6 % BASO % (test code = 706-2) 0.5 % GRAN MAT x10^3(ANC) (test code = 5530422163) 3.23 10*3/uL 1.99-6.95 IMM GRAN x10^3 (test code = 3686639816) 0.00-0.06 LYMPH x10^3 (test code = 731-0) 2.42 10*3/uL 1.09-3.23 MONO x10^3 (test code = 742-7) 0.61 10*3/uL 0.36-1.02 EOS x10^3 (test code = 711-2) 0.10 10*3/uL 0.06-0.53 BASO x10^3 (test code = 704-7) 0.03 10*3/uL 0.01-0.09 Lab Interpretation (test code = 93526-2) Abnormal [facility] Metabolic Panel (NA, K, CL, CO2, GLUCOSE, BUN, CREATININE, CA)2024-07-21 20:13:09* Test Item Value Reference Range Interpretation Comme nts NA (test code = 6860945037) 133 mmol/L 135-145 L K (test code = 1453389104) 4.4 mmol/L 3.5-5.0 CL (test code = 4810663754) 97 mmol/L 98-108 L CO2 TOTAL (test code = 8536767291) 31 mmol/L 23-31 AGAP (test code = 7494002588) 5 2-16 BUN (test code = 2119212763) 64 mg/dL 7-23 H GLUCOSE (test code = 3379414109) 134 mg/dL 70-110 H CREATININE (test code = 2160-0) 2.33 mg/dL 0.60-1.25 H CALCIUM (test code = 5767384849) 8.7 mg/dL 8.6-10.6 eGFR (test code = 95389-7) 31.8 mL/min/1.73m2 CKD-EPI eGFR (2020). Assuming creatinine has been stable day-to-day for at least three months, the eGFR indicates Category G3b (30 - 44 mL/min/1.73 m2) Lab Interpretation (test code = 60047-1) Abnormal [facility] Metabolic Panel (NA, K, CL, CO2, GLUCOSE, BUN, CREATININE, CA)2024-07-21 20:13:09* Test Item Value Reference Range Interpretation Comme [facility] NA (test code = 2165841264) 133 mmol/L 135-145 L K (test code = 8787994719) 4.4 mmol/L 3.5-5.0 CL (test code = 2723123642) 97 mmol/L 98-108 L CO2 TOTAL (test code = 7905695960) 31 mmol/L 23-31 AGAP (test code = 2547486591) 5 2-16 BUN (test code = 0542598337) 64 mg/dL 7-23 H GLUCOSE (test code = 0678418277) 134 mg/dL 70-110 H CREATININE (test code = 2160-0) 2.33 mg/dL 0.60-1.25 H CALCIUM (test code = 9464137768) 8.7 mg/dL 8.6-10.6 eGFR (test code = 48831-2) 31.8 mL/min/1.73m2 CKD-EPI eGFR (2020). Assuming creatinine has been stable day-to-day for at least three months, the eGFR indicates Category G3b (30 - 44 mL/min/1.73 m2) Lab Interpretation (test code = 68608-1) Abnormal [facility] GLUCOSE (AUTOMATED)2024-07-21 17:07:43* Test Item Value Reference Range Interpretation Comme [facility] POCT GLU (test code = 2348724714) 162 mg/dL 70-110 H Lab Interpretation (test cod e = 58777-3) Abnormal [facility] GLUCOSE (AUTOMATED)2024-07-21 17:07:43* Test Item Value Reference Range Interpretation Comme nts POCT GLU (test code = 3924200828) 162 mg/dL 70-110 H Lab Interpretation (test cod e = 66848-1) Abnormal [facility] GLUCOSE (AUTOMATED)2024-07-21 15:12:14* Test Item Value Reference Range Interpretation Comme nts POCT GLU (test code = 8088416918) 115 mg/dL 70-110 H Lab Interpretation (test cod e = 78967-1) Abnormal [facility] GLUCOSE (AUTOMATED)2024-07-21 15:12:14* Test Item Value Reference Range Interpretation Comme nts POCT GLU (test code = 0632965322) 115 mg/dL 70-110 H Lab Interpretation (test cod e = 59905-3) Abnormal [facility] Metabolic Panel (NA, K, CL, CO2, GLUCOSE, BUN, CREATININE, CA)2024-07-21 10:02:41* Test Item Value Reference Range Interpretation Comme nts NA (test code = 7366701926) 134 mmol/L 135-145 L K (test code = 7388450539) 4.4 mmol/L 3.5-5.0 CL (test code = 8924857887) 97 mmol/L 98-108 L CO2 TOTAL (test code = 6572041206) 27 mmol/L 23-31 AGAP (test code = 1521458363) 10 2-16 BUN (test code = 5773080534) 73 mg/dL 7-23 H GLUCOSE (test code = 4347273922) 118 mg/dL 70-110 H CREATININE (test code = 2160-0) 2.38 mg/dL 0.60-1.25 H CALCIUM (test code = 1412165775) 8.8 mg/dL 8.6-10.6 eGFR (test code = 10523-6) 31.0 mL/min/1.73m2 CKD-EPI eGFR (2020). Assuming creatinine has been stable day-to-day for at least three months, the eGFR indicates Category G3b (30 - 44 mL/min/1.73 m2) Lab Interpretation (test code = 32820-8) [facility] TaylorMagnesium2024-12-19 10:02:41* Test Item Value Reference Range Interpretation Comme nts MAGNESIUM (test code = 1087515935) 2.7 mg/dL 1.7-2.4 H Lab Interpretation (test cod e = 54213-6) [facility]normal [facility] TaylorBasi Metabolic Panel (NA, K, CL, CO2, GLUCOSE, BUN, CREATININE, CA)2024-07-21 10:02:41* Test Item Value Reference Range Interpretation Comme nts NA (test code = 9240874946) 134 mmol/L 135-145 L K (test code = 1882796359) 4.4 mmol/L 3.5-5.0 CL (test code = 3426739493) 97 mmol/L 98-108 L CO2 TOTAL (test code = 8753532343) 27 mmol/L 23-31 AGAP (test code = 2839797061) 10 2-16 BUN (test code = 3192316801) 73 mg/dL 7-23 H GLUCOSE (test code = 0176545400) 118 mg/dL 70-110 H CREATININE (test code = 2160-0) 2.38 mg/dL 0.60-1.25 H CALCIUM (test code = 5741417257) 8.8 mg/dL 8.6-10.6 eGFR (test code = 67901-2) 31.0 mL/min/1.73m2 CKD-EPI eGFR (2020). Assuming creatinine has been stable day-to-day for at least three months, the eGFR indicates Category G3b (30 - 44 mL/min/1.73 m2) Lab Interpretation (test code = 32779-9) [facility]normal [facility] TaylorMagnesium2024-12-19 10:02:41* Test Item Value Reference Range Interpretation Comme nts MAGNESIUM (test code = 9728278990) 2.7 mg/dL 1.7-2.4 H Lab Interpretation (test cod e = 24879-8) [facility]normal [facility] TaylorProthrombin Time/PNX0371-03-32 09:57:58* Test Item Value Reference Range Interpretation Comme nts PROTIME PATIENT (test code = 5964-2) 15.7 10.1-12.6 H INR (test code = 6301-6) 1.4 Normal INR <1.1; Warfarin Therapeutic range 2.0 to 3.0 or 2.5 to 3.5, depending upon the indications. Lab Interpretation (test code = 16423-2) [facility] TaylorProthrombin Time/ZXR9051-21-40 09:57:58* Test Item Value Reference Range Interpretation Comme nts PROTIME PATIENT (test code = 5964-2) 15.7 10.1-12.6 H INR (test code = 6301-6) 1.4 Normal INR <1.1; Warfarin Therapeutic range 2.0 to 3.0 or 2.5 to 3.5, depending upon the indications. Lab Interpretation (test code = 55649-5) [facility]normal [facility] TaylorCbc without Covk8020-35-32 09:52:55* Test Item Value Reference Range Interpretation Comme [facility] WBC (test code = 6690-2) 5.19 4.20-10.70 [...] 777-3) 201 150-328 MPV (test code = 20476-9) 11.1 fL 9.8-13.0 RDW-CV (test code = 788-0) 17.8 % 12.1-15.4 H RDW-SD (test code = 54500-7) 49.0 fL 38.5-51.6 NRBC x10^3 (test code = 3069528764) See_Comment [Automated [employer]] The system which generated this result transmitted reference range: 10*3/?L. The reference range was not used to interpret this result as normal/abnormal. NRBC/100 WBC (test code = 4877360839) 0.0 0.0-10.0 IPF % (test code = 6030148995) Lab Interpretation (test code = 70007-5) Abnormal [facility] without [id number] 09:52:55* Test Item Value Reference Range Interpretation [...] 777-3) 201 150-328 MPV (test code = 63685-6) 11.1 fL 9.8-13.0 RDW-CV (test code = 788-0) 17.8 % 12.1-15.4 H RDW-SD (test code = 88506-4) 49.0 fL 38.5-51.6 NRBC x10^3 (test code = 9758688690) See_Comment [Automated [employer]] The system which generated this result transmitted reference range: 10*3/?L. The reference range was not used to interpret this result as normal/abnormal. NRBC/100 WBC (test code = 5788778394) 0.0 0.0-10.0 IPF % (test code = 7273038797) Lab Interpretation (test code = 38479-1) Abnormal [facility] GLUCOSE (AUTOMATED)2024-07-21 02:52:15* Test Item Value Reference Range Interpretation Comme nts POCT GLU (test code = 9653673255) 116 mg/dL 70-110 H Lab Interpretation (test cod e = 79058-6) Abnormal [facility] GLUCOSE (AUTOMATED)2024-07-21 02:52:15* Test Item Value Reference Range Interpretation Comme nts POCT GLU (test code = 0448488725) 116 mg/dL 70-110 H Lab Interpretation (test cod e = 51172-5) Abnormal [facility] GLUCOSE (AUTOMATED)2024-07-20 22:28:44* Test Item Value Reference Range Interpretation Comme nts POCT GLU (test code = 2384972096) 98 mg/dL 70-110 Lab Interpretation (test cod e = 12480-7) Normal [facility] GLUCOSE (AUTOMATED)2024-07-20 22:28:44* Test Item Value Reference Range Interpretation Comme nts POCT GLU (test code = 8993237893) 98 mg/dL 70-110 Lab Interpretation (test cod e = 91412-1) [facility] Wzs-Fxq2062-38-18 17:30:28* Test Item Value Reference Range Interpretation Comme nts NT-proBNP (test code = 93579-7) 1580 pg/mL <=125 H JACOB (test code = JACOB) Positive: Heart Failure Likely Lab Interpretation (test code = 30390-5) [facility]normal [facility] Ryv-Dqo6205-05-18 17:30:28* Test Item Value Reference Range Interpretation Comme nts NT-proBNP (test code = 54819-2) 1580 pg/mL <=125 H JACOB (test code = JACOB) Positive: Heart Failure Likely Lab Interpretation (test code = 14326-2) Abnormal [facility] GLUCOSE (AUTOMATED)2024-07-20 17:20:38* Test Item Value Reference Range Interpretation Comme nts POCT GLU (test code = 3084460109) 117 mg/dL 70-110 H Lab Interpretation (test cod e = 80696-2) Abnormal [facility] GLUCOSE (AUTOMATED)2024-07-20 17:20:38* Test Item Value Reference Range Interpretation Comme nts POCT GLU (test code = 6358113977) 117 mg/dL 70-110 H Lab Interpretation (test cod e = 74534-1) Abnormal [facility] GLUCOSE (AUTOMATED)2024-07-20 15:24:41* Test Item Value Reference Range Interpretation Comme nts POCT GLU (test code = 7685982916) 114 mg/dL 70-110 H Lab Interpretation (test cod e = 44039-3) Abnormal [facility] GLUCOSE (AUTOMATED)2024-07-20 15:24:41* Test Item Value Reference Range Interpretation Comme nts POCT GLU (test code = 0878914210) 114 mg/dL 70-110 H Lab Interpretation (test cod e = 39326-3) [facility]normal [facility] TaylorLava[facility] Acid Whole Ekttj8415-32-51 14:28:46* Test Item Value Reference Range Interpretation Comme nts LACTIC ACID (test code = 7063481914) 1.71 mmol/L 0.50-2.20 Lab Interpretation (test cod e = 29404-2) Normal [facility] Acid Whole Rxkzs5421-71-74 14:28:46* Test Item Value Reference Range Interpretation Comme nts LACTIC ACID (test code = 1713345870) 1.71 mmol/L 0.50-2.20 Lab Interpretation (test cod e = 62942-3) Normal [facility] Metabolic Panel (NA, K, CL, CO2, GLUCOSE, BUN, CREATININE, CA)2024-07-20 13:52:53* Test Item Value Reference Range Interpretation Comme nts NA (test code = 3580119647) 134 mmol/L 135-145 L K (test code = 1787132183) 4.6 mmol/L 3.5-5.0 CL (test code = 7103765617) 98 mmol/L 98-108 CO2 TOTAL (test code = 5264020345) 27 mmol/L 23-31 AGAP (test code = 9742123397) 9 2-16 BUN (test code = 8853327462) 63 mg/dL 7-23 H GLUCOSE (test code = 5612046378) 102 mg/dL 70-110 CREATININE (test code = 2160-0) 2.60 mg/dL 0.60-1.25 H CALCIUM (test code = 2583481682) 9.0 mg/dL 8.6-10.6 eGFR (test code = 10540-2) 27.9 mL/min/1.73m2 CKD-EPI eGFR (2020). Assuming creatinine has been stable day-to-day for at least three months, the eGFR indicates Category G4 (15 - 29 mL/min/1.73 m2) Lab Interpretation (test code = 77256-5) [facility]normal [facility] Taylor[facility]esium2024-12-18 13:52:53* Test Item Value Reference Range Interpretation Comme nts MAGNESIUM (test code = 5970543243) 2.6 mg/dL 1.7-2.4 H Lab Interpretation (test cod e = 79678-5) [facility]normal [facility] TaylorBasi Metabolic Panel (NA, K, CL, CO2, GLUCOSE, BUN, CREATININE, CA)2024-07-20 13:52:53* Test Item Value Reference Range Interpretation Comme nts NA (test code = 2808009857) 134 mmol/L 135-145 L K (test code = 8683817667) 4.6 mmol/L 3.5-5.0 CL (test code = 2923190805) 98 mmol/L 98-108 CO2 TOTAL (test code = 1492568581) 27 mmol/L 23-31 AGAP (test code = 9955749683) 9 2-16 BUN (test code = 5017358513) 63 mg/dL 7-23 H GLUCOSE (test code = 8492397628) 102 mg/dL 70-110 CREATININE (test code = 2160-0) 2.60 mg/dL 0.60-1.25 H CALCIUM (test code = 8707239895) 9.0 mg/dL 8.6-10.6 eGFR (test code = 27599-1) 27.9 mL/min/1.73m2 CKD-EPI eGFR (2020). Assuming creatinine has been stable day-to-day for at least three months, the eGFR indicates Category G4 (15 - 29 mL/min/1.73 m2) Lab Interpretation (test code = 30402-2) [facility]normal [facility] TaylorMagnesium2024-12-18 13:52:53* Test Item Value Reference Range Interpretation Comme nts MAGNESIUM (test code = 3008053413) 2.6 mg/dL 1.7-2.4 H Lab Interpretation (test cod e = 06497-4) Abnormal [facility] TaylorProthrombin Time/AJN0516-71-41 11:35:40* Test Item Value Reference Range Interpretation Comme nts PROTIME PATIENT (test code = 5964-2) 13.5 10.1-12.6 H INR (test code = 6301-6) 1.2 Normal INR <1.1; Warfarin Therapeutic range 2.0 to 3.0 or 2.5 to 3.5, depending upon the indications. Lab Interpretation (test code = 64867-3) [facility] TayloraPTT (for use with Heparin Drip)2024-07-20 11:35:40* Test Item Value Reference Range Interpretation Comme [facility] APTT Patient (test code = 3173-2) 107 26-36 Lab Interpretation (test cod e = 75154-7) [facility]normal [facility] TaylorProthrombin Time/DNO6128-17-17 11:35:40* Test Item Value Reference Range Interpretation Comme [facility] PROTIME PATIENT (test code = 5964-2) 13.5 10.1-12.6 H INR (test code = 6301-6) 1.2 Normal INR <1.1; Warfarin Therapeutic range 2.0 to 3.0 or 2.5 to 3.5, depending upon the indications. Lab Interpretation (test code = 46203-9) [facility] Taylor[facility] (for use with Heparin Drip)2024-07-20 11:35:40* Test Item Value Reference Range Interpretation Comme [facility] APTT Patient (test code = 3173-2) 107 26-36 Lab Interpretation (test cod e = 60597-9) [facility]normal [facility] TaylorCbc without Hiwi9302-79-33 11:27:30* Test Item Value Reference Range Interpretation Comme [facility] WBC (test code = 6690-2) 6.03 4.20-10.70 [...] 777-3) 218 150-328 MPV (test code = 57915-9) 9.8 fL 9.8-13.0 RDW-CV (test code = 788-0) 18.2 % 12.1-15.4 H RDW-SD (test code = 31108-9) 48.3 fL 38.5-51.6 NRBC x10^3 (test code = 6807771116) See_Comment [Automated [employer]] The system which generated this result transmitted reference range: 10*3/?L. The reference range was not used to interpret this result as normal/abnormal. NRBC/100 WBC (test code = 4692786987) 0.0 0.0-10.0 IPF % (test code = 4556085448) Lab Interpretation (test code = 03802-0) Abnormal [facility] without Nsht7700-45-84 11:27:30* Test Item Value Reference Range Interpretation [...] 777-3) 218 150-328 MPV (test code = 60356-0) 9.8 fL 9.8-13.0 RDW-CV (test code = 788-0) 18.2 % 12.1-15.4 H RDW-SD (test code = 47221-4) 48.3 fL 38.5-51.6 NRBC x10^3 (test code = 1080607310) See_Comment [Automated [employer]] The system which generated this result transmitted reference range: 10*3/?L. The reference range was not used to interpret this result as normal/abnormal. NRBC/100 WBC (test code = 1976173736) 0.0 0.0-10.0 IPF % (test code = 5683962626) Lab Interpretation (test code = 23677-8) [facility]normal [facility] TaylorProthrombin Time (PT) / YBQ6563-05-47 05:54:36 * Test Item Value Reference Range Interpretation Comme nts PROTIME PATIENT (test code = 5964-2) 12.4 10.1-12.6 INR (test code = 6301-6) 1.1 Normal INR <1.1; Warfarin Therapeutic range 2.0 to 3.0 or 2.5 to 3.5, depending upon the indications. Lab Interpretation (test code = 93024-2) Normal [facility] TayloraPTT2024-12-18 05:54:36* Test Item Value Reference Range Interpretation Comme nts APTT Patient (test code = 3173-2) 32 36 Lab Interpretation (test cod e = 66266-4) Normal [facility] TaylorProthrombin Time (PT) / [id number] 05:54:36 * Test Item Value Reference Range Interpretation Comme nts PROTIME PATIENT (test code = 5964-2) 12.4 10.1-12.6 INR (test code = 6301-6) 1.1 Normal INR <1.1; Warfarin Therapeutic range 2.0 to 3.0 or 2.5 to 3.5, depending upon the indications. Lab Interpretation (test code = 14324-4) Normal [facility] TayloraPTT2024-12-18 05:54:36* Test Item Value Reference Range Interpretation Comme nts APTT Patient (test code = 3173-2) 32 -36 Lab Interpretation (test cod e = 40247-2) Normal [facility] GLUCOSE (AUTOMATED)2024-07-20 04:28:13* Test Item Value Reference Range Interpretation Comme nts POCT GLU (test code = 9984519750) 127 mg/dL 70-110 H Lab Interpretation (test cod e = 80414-4) Abnormal [facility] GLUCOSE (AUTOMATED)2024-07-20 04:28:13* Test Item Value Reference Range Interpretation Comme nts POCT GLU (test code = 0025261791) 127 mg/dL 70-110 H Lab Interpretation (test cod e = 16143-3) Abnormal [facility] TaylorCardiovascular Dnbxvntyfzxwkvt9005-03-22 00:09:30[facility] Heart Cath [facility] Date of Service: 07/19/2024 ?6:01 PM Attending Physician:Vernon Weller MDFellow: Dr. Shah Physician: Dr. Rico Procedures Performed:Right Heart Cath: CTP 76868 Indication/Diagnosis: congestive heart failure Consent: Risks, benefits, altern atives and complications of the procedure discussed with the patient, who understood and agreed to proceed. Aseptic technique: Chlorprep Local Anesthesia: 1% lidocaine without epinephrine Sedation: None Access site: right internal jugular vein Closure Method: Manual Compression Sterile dressing: yes Complications: none Procedures: The patient arrived the mason tender restoration labor in stable condition. After patient identification/verification, the patient was thereafter transferred onto the mason tender restoration labor table. ?After administering sedation, Time Out was done. Using modified Seldinger technique, the Right internal jugular vein was accessed using a micropuncture kit. The access was upgraded a 7Fr sheath. A [place] Catheter was then prepped and advanced through the right IJ into the RA. Selective right heart catheterization was then done. Thereafter cardiac output/index was done. RHC: RA mean 6 mmHgRV 37/10 zzJmMA81/22 mmHg (mean PA 28 mmHg)PCWP mean 17 [...] procedure. Jani Weller MD 07/19/2024 6:01 PM ?[facility] Lung ventilation and jddiaatbf1764-90-41 18:11:17LUNG VENTILATION/PERFUSION (VQ) SCAN INDICATION: Chest pain, [...] caused by cardiomegaly noted in ventilation andperfusion imaging.[facility] Lung ventilation and shzysvkqa6076-76-77 18:11:17LUNG VENTILATION/PERFUSION (VQ) SCAN INDICATION: Chest pain, [...] caused by cardiomegaly noted in ventilation andperfusion imaging.[facility] Lung ventilation and perfusion 2024-07-19 [...] caused by cardiomegaly noted in ventilation andperfusion imaging.[facility] GLUCOSE (AUTOMATED)2024-07-19 18:07:11* Test Item Value Reference Range Interpretation Comme nts POCT GLU (test code = 6978732486) 94 mg/dL 70-110 Lab Interpretation (test cod e = 41635-8) Normal [facility] GLUCOSE (AUTOMATED)2024-07-19 18:07:11* Test Item Value Reference Range Interpretation Comme nts POCT GLU (test code = 7980013201) 94 mg/dL 70-110 Lab Interpretation (test cod e = 17170-0) Normal [facility] GLUCOSE (AUTOMATED)2024-07-19 18:07:11* Test Item Value Reference Range Interpretation Comme nts POCT GLU (test code = 9877820598) 94 mg/dL 70-110 Lab Interpretation (test cod e = 59218-1) [facility] GLUCOSE (AUTOMATED)2024-07-19 14:21:05* Test Item Value Reference Range Interpretation Comme nts POCT GLU (test code = 6223051020) 100 mg/dL 70-110 Lab Interpretation (test cod e = 83918-3) [facility] GLUCOSE (AUTOMATED)2024-07-19 14:21:05* Test Item Value Reference Range Interpretation Comme nts POCT GLU (test code = 1717101957) 100 mg/dL 70-110 Lab Interpretation (test cod e = 13462-0) [facility] GLUCOSE (AUTOMATED)2024-07-19 14:21:05* Test Item Value Reference Range Interpretation Comme nts POCT GLU (test code = 6957959294) 100 mg/dL 70-110 Lab Interpretation (test cod e = 43665-7) [facility] Metabolic Panel (NA, K, CL, CO2, GLUCOSE, BUN, CREATININE, CA)2024-07-19 12:30:39* Test Item Value Reference Range Interpretation Comme nts NA (test code = 8630568339) 135 mmol/L 135-145 K (test code = 4310353640) 5.5 mmol/L 3.5-5.0 H Slight hemolysis CL (test code = 1199092036) 97 mmol/L 98-108 L CO2 TOTAL (test code = 4684495939) 23 mmol/L 23-31 AGAP (test code = 7473619299) 15 2-16 BUN (test code = 1660205040) 53 mg/dL 7-23 H Slight hemolysis GLUCOSE (test code = 1614289812) 106 mg/dL 70-110 CREATININE (test code = 2160-0) 2.83 mg/dL 0.60-1.25 H CALCIUM (test code = 3317676529) 9.6 mg/dL 8.6-10.6 eGFR (test code = 06019-6) 25.2 mL/min/1.73m2 CKD-EPI eGFR (2020). Assuming creatinine has been stable day-to-day for at least three months, the eGFR indicates Category G4 (15 - 29 mL/min/1.73 m2) Lab Interpretation (test code = 22392-8) [facility] 12:30:39* Test Item Value Reference Range Interpretation Comme nts MAGNESIUM (test code = 4144566183) 2.5 mg/dL 1.7-2.4 H Lab Interpretation (test cod e = 99894-5) Abnormal [facility] Metabolic Panel (NA, K, CL, CO2, GLUCOSE, BUN, CREATININE, CA)2024-07-19 12:30:39* Test Item Value Reference Range Interpretation Comme nts NA (test code = 3930985855) 135 mmol/L 135-145 K (test code = 6219976207) 5.5 mmol/L 3.5-5.0 H Slight hemolysis CL (test code = 1812913736) 97 mmol/L 98-108 L CO2 TOTAL (test code = 2069948944) 23 mmol/L 23-31 AGAP (test code = 8032964326) 15 2-16 BUN (test code = 4033975984) 53 mg/dL 7-23 H Slight hemolysis GLUCOSE (test code = 7554582340) 106 mg/dL 70-110 CREATININE (test code = 2160-0) 2.83 mg/dL 0.60-1.25 H CALCIUM (test code = 2922305708) 9.6 mg/dL 8.6-10.6 eGFR (test code = 34172-7) 25.2 mL/min/1.73m2 CKD-EPI eGFR (2020). Assuming creatinine has been stable day-to-day for at least three months, the eGFR indicates Category G4 (15 - 29 mL/min/1.73 m2) Lab Interpretation (test code = 04354-9) Abnormal [facility]2024-12-17 12:30:39* Test Item Value Reference Range Interpretation Comme nts MAGNESIUM (test code = 7971826522) 2.5 mg/dL 1.7-2.4 H Lab Interpretation (test cod e = 21623-0) Abnormal [facility] Metabolic Panel (NA, K, CL, CO2, GLUCOSE, BUN, CREATININE, CA)2024-07-19 12:30:39* Test Item Value Reference Range Interpretation Comme nts NA (test code = 9497885512) 135 mmol/L 135-145 K (test code = 2901364527) 5.5 mmol/L 3.5-5.0 H Slight hemolysis CL (test code = 3618684983) 97 mmol/L 98-108 L CO2 TOTAL (test code = 6959115356) 23 mmol/L 23-31 AGAP (test code = 1265904697) 15 2-16 BUN (test code = 7794088896) 53 mg/dL 7-23 H Slight hemolysis GLUCOSE (test code = 6426997792) 106 mg/dL 70-110 CREATININE (test code = 2160-0) 2.83 mg/dL 0.60-1.25 H CALCIUM (test code = 3774166118) 9.6 mg/dL 8.6-10.6 eGFR (test code = 91077-8) 25.2 mL/min/1.73m2 CKD-EPI eGFR (2020). Assuming creatinine has been stable day-to-day for at least three months, the eGFR indicates Category G4 (15 - 29 mL/min/1.73 m2) Lab Interpretation (test code = 57789-1) [facility]normal [facility]2024-[facility]-17 12:30:39* Test Item Value Reference Range Interpretation Comme nts MAGNESIUM (test code = 6816652739) 2.5 mg/dL 1.7-2.4 H Lab Interpretation (test cod e = 33249-1) Abnormal [facility] without Iiqt6747-20-76 11:37:24* Test Item Value Reference Range Interpretation [...] 777-3) 247 150-328 MPV (test code = 90010-0) 9.9 fL 9.8-13.0 RDW-CV (test code = 788-0) 18.6 % 12.1-15.4 H RDW-SD (test code = 61370-2) 49.7 fL 38.5-51.6 NRBC x10^3 (test code = 7219623970) See_Comment [Automated messa ge] The system which generated this result transmitted reference range: 10*3/?L. The reference range was not used to interpret this result as normal/abnormal. NRBC/100 WBC (test code = 1417487400) 0.0 0.0-10.0 IPF % (test code = 0957409545) Lab Interpretation (test code = 49033-4) Abnormal [facility] without Tjqt3759-38-04 11:37:24* Test Item Value Reference Range Interpretation [...] 777-3) 247 150-328 MPV (test code = 55992-1) 9.9 fL 9.8-13.0 RDW-CV (test code = 788-0) 18.6 % 12.1-15.4 H RDW-SD (test code = 43766-9) 49.7 fL 38.5-51.6 NRBC x10^3 (test code = 6201357795) See_Comment [Automated Exabe[employer] ge] The system which generated this result transmitted reference range: 10*3/?L. The reference range was not used to interpret this result as normal/abnormal. NRBC/100 WBC (test code = 6012130162) 0.0 0.0-10.0 IPF % (test code = 7268079089) Lab Interpretation (test code = 41831-1) Abnormal [facility] without Epjt5851-09-07 11:37:24* Test Item Value Reference Range Interpretation [...] 777-3) 247 150-328 MPV (test code = 57365-5) 9.9 fL 9.8-13.0 RDW-CV (test code = 788-0) 18.6 % 12.1-15.4 H RDW-SD (test code = 91963-4) 49.7 fL 38.5-51.6 NRBC x10^3 (test code = 2924832311) See_Comment [Automated Exabeama ge] The system which generated this result transmitted reference range: 10*3/?L. The reference range was not used to interpret this result as normal/abnormal. NRBC/100 WBC (test code = 1160295116) 0.0 0.0-10.0 IPF % (test code = 0678226463) Lab Interpretation (test code = 78928-7) [facility] Taylor[facility]rophysiology ffbchpnet0338-40-37 01:15:16 IMMIGRATION JUDGE-D Generator Change Out Procedure NoteProcedure: Bi-Ventricular ICD [...] acute complications. Device Characteristics: Device Characteristics:Pulse generator: [employer] Model [id number] Lead: Biotronik Solia S53, P [...] clinic in 6-8 weeks. [facility]iology[facility] C[facility] PROCEDURE LVY5615-27-29 01:07:24Ordered by an unspecified provider. [facility] GLUCOSE (AUTOMATED)2024-07-18 18:35:33* Test Item Value Reference Range Interpretation Comme nts POCT GLU (test code = 0159027855) 106 mg/dL 70-110 Lab Interpretation (test cod e = 74792-8) Normal [facility] GLUCOSE (AUTOMATED)2024-07-18 18:35:33* Test Item Value Reference Range Interpretation Comme nts POCT GLU (test code = 3896836917) 106 mg/dL 70-110 Lab Interpretation (test cod e = 91932-6) Normal [facility] GLUCOSE (AUTOMATED)2024-07-18 18:35:33* Test Item Value Reference Range Interpretation Comme nts POCT GLU (test code = 4933010699) 106 mg/dL 70-110 Lab Interpretation (test cod e = 49809-7) [facility] Taylor[facility] Met[facility] Panel (NA, K, CL, CO2, GLUCOSE, BUN, CREATININE, CA)2024-07-18 10:12:20* Test Item Value Reference Range Interpretation Comme nts NA (test code = 8974337381) 135 mmol/L 135-145 K (test code = 1191716018) 4.7 mmol/L 3.5-5.0 CL (test code = 2887760388) 96 mmol/L 98-108 L CO2 TOTAL (test code = 9603839520) 32 mmol/L 23-31 H AGAP (test code = 6563098772) 7 2-16 BUN (test code = 3544164731) 37 mg/dL 7-23 H GLUCOSE (test code = 8387201277) 110 mg/dL 70-110 CREATININE (test code = 2160-0) 1.90 mg/dL 0.60-1.25 H CALCIUM (test code = 2617388001) 9.5 mg/dL 8.6-10.6 eGFR (test code = 85610-1) 40.6 mL/min/1.73m2 CKD-EPI eGFR (2020). Assuming creatinine has been stable day-to-day for at least three months, the eGFR indicates Category G3b (30 - 44 mL/min/1.73 m2) Lab Interpretation (test code = 78845-9) Abnormal [facility] Metabolic Panel (NA, K, CL, CO2, GLUCOSE, BUN, CREATININE, CA)2024-07-18 10:12:20* Test Item Value Reference Range Interpretation Comme nts NA (test code = 4221986638) 135 mmol/L 135-145 K (test code = 8263009618) 4.7 mmol/L 3.5-5.0 CL (test code = 4533873821) 96 mmol/L 98-108 L CO2 TOTAL (test code = 9946099697) 32 mmol/L 23-31 H AGAP (test code = 6820876897) 7 2-16 BUN (test code = 5382844477) 37 mg/dL 7-23 H GLUCOSE (test code = 3897460064) 110 mg/dL 70-110 CREATININE (test code = 2160-0) 1.90 mg/dL 0.60-1.25 H CALCIUM (test code = 5455931762) 9.5 mg/dL 8.6-10.6 eGFR (test code = 58582-6) 40.6 mL/min/1.73m2 CKD-EPI eGFR (2020). Assuming creatinine has been stable day-to-day for at least three months, the eGFR indicates Category G3b (30 - 44 mL/min/1.73 m2) Lab Interpretation (test code = 03836-8) Abnormal [facility] Metabolic Panel (NA, K, CL, CO2, GLUCOSE, BUN, CREATININE, CA)2024-07-18 10:12:20* Test Item Value Reference Range Interpretation Comme nts NA (test code = 9164921635) 135 mmol/L 135-145 K (test code = 3198857695) 4.7 mmol/L 3.5-5.0 CL (test code = 1169617798) 96 mmol/L 98-108 L CO2 TOTAL (test code = 3614843569) 32 mmol/L 23-31 H AGAP (test code = 7079201358) 7 2-16 BUN (test code = 5430718158) 37 mg/dL 7-23 H GLUCOSE (test code = 3981484751) 110 mg/dL 70-110 CREATININE (test code = 2160-0) 1.90 mg/dL 0.60-1.25 H CALCIUM (test code = 6649559096) 9.5 mg/dL 8.6-10.6 eGFR (test code = 57175-3) 40.6 mL/min/1.73m2 CKD-EPI eGFR (2020). Assuming creatinine has been stable day-to-day for at least three months, the eGFR indicates Category G3b (30 - 44 mL/min/1.73 m2) Lab Interpretation (test code = 21745-1) Abnormal [facility]2024-12-16 10:10:29* Test Item Value Reference Range Interpretation Comme nts MAGNESIUM (test code = 2836468043) 2.7 mg/dL 1.7-2.4 H Lab Interpretation (test cod e = 46582-0) Abnormal [facility]2024-12-16 10:10:29* Test Item Value Reference Range Interpretation Comme nts MAGNESIUM (test code = 8396962354) 2.7 mg/dL 1.7-2.4 H Lab Interpretation (test cod e = 78495-2) Abnormal [facility]2024-12-16 10:10:29* Test Item Value Reference Range Interpretation Comme nts MAGNESIUM (test code = 9464405758) 2.7 mg/dL 1.7-2.4 H Lab Interpretation (test cod e = 86936-1) Abnormal [facility] (for use with Heparin Infusion)2024-07-18 09:51:30* Test Item Value Reference Range Interpretation Comme nts APTT Patient (test code = 3173-2) 68 26-36 H Lab Interpretation (test cod e = 76985-9) [facility]for use with Heparin Infusion)2024-07-18 09:51:30* Test Item Value Reference Range Interpretation Comme nts APTT Patient (test code = 3173-2) 68 26-36 H Lab Interpretation (test cod e = 47569-1) Abnormal [facility] (for use with Heparin Infusion)2024-07-18 09:51:30* Test Item Value Reference Range Interpretation Comme nts APTT Patient (test code = 3173-2) 68 26-36 H Lab Interpretation (test cod e = 50727-1) Abnormal [facility] with Qcsg9957-46-99 09:48:09* Test Item Value Reference Range Interpretation [...] 32.2 g/dL 31.2-35.0 RDW-SD (test code = 17370-7) 47.9 fL 38.5-51.6 RDW-CV (test code = 788-0) 18.5 % 12.1-15.4 H PLT (test code = 777-3) 254 150-328 MPV (test code = 04564-8) 10.2 fL 9.8-13.0 NRBC/100 WBC (test code = 0111559948) 0.0 0.0-10.0 NRBC x10^3 (test code = 1590644896) See_Comment [Automated messa ge] The system which generated this result transmitted reference range: 10*3/?L. The reference range was not used to interpret this result as normal/abnormal. GRAN MAT (NEUT) % (test code = 770-8) 45.0 % IMM GRAN % (test code = 0925621961) 0.20 % LYMPH % (test code = 736-9) 36.9 % MONO % (test code = 5905-5) 15.9 % EOS % (test code = 713-8) 1.6 % BASO % (test code = 706-2) 0.4 % GRAN MAT x10^3(ANC) (test code = 8076905315) 2.49 10*3/uL 1.99-6.95 IMM GRAN x10^3 (test code = 9653623707) 0.00-0.06 LYMPH x10^3 (test code = 731-0) 2.04 10*3/uL 1.09-3.23 MONO x10^3 (test code = 742-7) 0.88 10*3/uL 0.36-1.02 EOS x10^3 (test code = 711-2) 0.09 10*3/uL 0.06-0.53 BASO x10^3 (test code = 704-7) 0.01-0.09 Lab Interpretation (test code = 58828-4) Abnormal [facility] with Hipk9345-13-98 09:48:09* Test Item Value Reference Range Interpretation [...] 32.2 g/dL 31.2-35.0 RDW-SD (test code = 15290-8) 47.9 fL 38.5-51.6 RDW-CV (test code = 788-0) 18.5 % 12.1-15.4 H PLT (test code = 777-3) 254 150-328 MPV (test code = 16909-8) 10.2 fL 9.8-13.0 NRBC/100 WBC (test code = 1628216260) 0.0 0.0-10.0 NRBC x10^3 (test code = [id number]) See_Comment [Automated messa ge] The system which generated this result transmitted reference range: 10*3/?L. The reference range was not used to interpret this result as normal/abnormal. GRAN MAT (NEUT) % (test code = 770-8) 45.0 % IMM GRAN % (test code = 9423289792) 0.20 % LYMPH % (test code = 736-9) 36.9 % MONO % (test code = 5905-5) 15.9 % EOS % (test code = 713-8) 1.6 % BASO % (test code = 706-2) 0.4 % GRAN MAT x10^3(ANC) (test code = 0065896204) 2.49 10*3/uL 1.99-6.95 IMM GRAN x10^3 (test code = 6247304665) 0.00-0.06 LYMPH x10^3 (test code = 731-0) 2.04 10*3/uL 1.09-3.23 MONO x10^3 (test code = 742-7) 0.88 10*3/uL 0.36-1.02 EOS x10^3 (test code = 711-2) 0.09 10*3/uL 0.06-0.53 BASO x10^3 (test code = 704-7) 0.01-0.09 Lab Interpretation (test code = 80681-1) Abnormal [facility] with Whiz1253-04-75 09:48:09* Test Item Value Reference Range Interpretation [...] 32.2 g/dL 31.2-35.0 RDW-SD (test code = 28973-1) 47.9 fL 38.5-51.6 RDW-CV (test code = 788-0) 18.5 % 12.1-15.4 H PLT (test code = 777-3) 254 150-328 MPV (test code = 26169-6) 10.2 fL 9.8-13.0 NRBC/100 WBC (test code = 9356855597) 0.0 0.0-10.0 NRBC x10^3 (test code = 6747211232) See_Comment [Automated messa ge] The system which generated this result transmitted reference range: 10*3/?L. The reference range was not used to interpret this result as normal/abnormal. GRAN MAT (NEUT) % (test code = 770-8) 45.0 % IMM GRAN % (test code = 7434544349) 0.20 % LYMPH % (test code = 736-9) 36.9 % MONO % (test code = 5905-5) 15.9 % EOS % (test code = 713-8) 1.6 % BASO % (test code = 706-2) 0.4 % GRAN MAT x10^3(ANC) (test code = 9287708808) 2.49 10*3/uL 1.99-6.95 IMM GRAN x10^3 (test code = 4960588920) 0.00-0.06 LYMPH x10^3 (test code = 731-0) 2.04 10*3/uL 1.09-3.23 MONO x10^3 (test code = 742-7) 0.88 10*3/uL 0.36-1.02 EOS x10^3 (test code = 711-2) 0.09 10*3/uL 0.06-0.53 BASO x10^3 (test code = 704-7) 0.01-0.09 Lab Interpretation (test code = 85807-4) Abnormal [facility] GLUCOSE (AUTOMATED)2024-07-18 03:05:07* Test Item Value Reference Range Interpretation Comme nts POCT GLU (test code = 4287907290) 130 mg/dL 70-110 H Lab Interpretation (test cod e = 68536-9) Abnormal [facility] GLUCOSE (AUTOMATED)2024-07-18 03:05:07* Test Item Value Reference Range Interpretation Comme nts POCT GLU (test code = 7242271957) 130 mg/dL 70-110 H Lab Interpretation (test cod e = 77200-6) Abnormal [facility] GLUCOSE (AUTOMATED)2024-07-18 03:05:07* Test Item Value Reference Range Interpretation Comme nts POCT GLU (test code = 5729788531) 130 mg/dL 70-110 H Lab Interpretation (test cod e = 19721-2) Abnormal [facility] GLUCOSE (AUTOMATED)2024-07-17 22:10:01* Test Item Value Reference Range Interpretation Comme nts POCT GLU (test code = 4023064138) 90 mg/dL 70-110 Lab Interpretation (test cod e = 35793-7) Normal [facility] GLUCOSE (AUTOMATED)2024-07-17 22:10:01* Test Item Value Reference Range Interpretation Comme nts POCT GLU (test code = 4068583864) 90 mg/dL 70-110 Lab Interpretation (test cod e = 75257-8) Normal [facility] GLUCOSE (AUTOMATED)2024-07-17 22:10:01* Test Item Value Reference Range Interpretation Comme nts POCT GLU (test code = 5508976269) 90 mg/dL 70-110 Lab Interpretation (test cod e = 96688-2) Normal [facility] GLUCOSE (AUTOMATED)2024-07-17 17:13:03* Test Item Value Reference Range Interpretation Comme nts POCT GLU (test code = 4677273450) 116 mg/dL 70-110 H Lab Interpretation (test cod e = 71102-8) Abnormal [facility] GLUCOSE (AUTOMATED)2024-07-17 17:13:03* Test Item Value Reference Range Interpretation Comme nts POCT GLU (test code = 4624628218) 116 mg/dL 70-110 H Lab Interpretation (test cod e = 61360-6) Abnormal [facility] GLUCOSE (AUTOMATED)2024-07-17 17:13:03* Test Item Value Reference Range Interpretation Comme nts POCT GLU (test code = 5096847611) 116 mg/dL 70-110 H Lab Interpretation (test cod e = 93928-6) Abnormal [facility] GLUCOSE (AUTOMATED)2024-07-17 13:49:58* Test Item Value Reference Range Interpretation Comme nts POCT GLU (test code = 1151905275) 110 mg/dL 70-110 Lab Interpretation (test cod e = 60724-7) Normal [facility] GLUCOSE (AUTOMATED)2024-07-17 13:49:58* Test Item Value Reference Range Interpretation Comme nts POCT GLU (test code = 2904623957) 110 mg/dL 70-110 Lab Interpretation (test cod e = 37290-8) Normal [facility] GLUCOSE (AUTOMATED)2024-07-17 13:49:58* Test Item Value Reference Range Interpretation Comme nts POCT GLU (test code = 2093807995) 110 mg/dL 70-110 Lab Interpretation (test cod e = 81207-4) Normal [facility] with Qiwo6075-21-46 12:51:46* Test Item Value Reference Range Interpretation [...] 31.7 g/dL 31.2-35.0 RDW-SD (test code = 19665-1) 49.6 fL 38.5-51.6 RDW-CV (test code = 788-0) 18.2 % 12.1-15.4 H PLT (test code = 777-3) 241 150-328 MPV (test code = 57553-7) 10.8 fL 9.8-13.0 NRBC/100 WBC (test code = 1249602162) 0.0 0.0-10.0 NRBC x10^3 (test code = 1883987262) See_Comment [Automated messa ge] The system which generated this result transmitted reference range: 10*3/?L. The reference range was not used to interpret this result as normal/abnormal. GRAN MAT (NEUT) % (test code = 770-8) 38.3 % IMM GRAN % (test code = 5152857287) 0.20 % LYMPH % (test code = 736-9) 44.1 % MONO % (test code = 5905-5) 15.1 % EOS % (test code = 713-8) 2.1 % BASO % (test code = 706-2) 0.2 % GRAN MAT x10^3(ANC) (test code = 5139031958) 1.97 10*3/uL 1.99-6.95 L IMM GRAN x10^3 (test code = 3371613566) 0.00-0.06 LYMPH x10^3 (test code = 731-0) 2.27 10*3/uL 1.09-3.23 MONO x10^3 (test code = 742-7) 0.78 10*3/uL 0.36-1.02 EOS x10^3 (test code = 711-2) 0.11 10*3/uL 0.06-0.53 BASO x10^3 (test code = 704-7) 0.01-0.09 REACT LYMPHS (test code = 0696257945) Many GIANT PLATELETS (test code = 5908-9) Present See_Comment A [Automated Exabeama ge] The system which generated this result transmitted reference range: (none). The reference range was not used to interpret this result as normal/abnormal. Lab Interpretation (test code = 92872-5) Abnormal [facility] with Rpab5203-88-25 12:51:46* Test Item Value Reference Range Interpretation [...] 31.7 g/dL 31.2-35.0 RDW-SD (test code = 78743-3) 49.6 fL 38.5-51.6 RDW-CV (test code = 788-0) 18.2 % 12.1-15.4 H PLT (test code = 777-3) 241 150-328 MPV (test code = 59834-1) 10.8 fL 9.8-13.0 NRBC/100 WBC (test code = 8964346176) 0.0 0.0-10.0 NRBC x10^3 (test code = 9251361120) See_Comment [Automated messa ge] The system which generated this result transmitted reference range: 10*3/?L. The reference range was not used to interpret this result as normal/abnormal. GRAN MAT (NEUT) % (test code = 770-8) 38.3 % IMM GRAN % (test code = 0631224483) 0.20 % LYMPH % (test code = 736-9) 44.1 % MONO % (test code = 5905-5) 15.1 % EOS % (test code = 713-8) 2.1 % BASO % (test code = 706-2) 0.2 % GRAN MAT x10^3(ANC) (test code = 0792413221) 1.97 10*3/uL 1.99-6.95 L IMM GRAN x10^3 (test code = 0516128081) 0.00-0.06 LYMPH x10^3 (test code = 731-0) 2.27 10*3/uL 1.09-3.23 MONO x10^3 (test code = 742-7) 0.78 10*3/uL 0.36-1.02 EOS x10^3 (test code = 711-2) 0.11 10*3/uL 0.06-0.53 BASO x10^3 (test code = 704-7) 0.01-0.09 REACT LYMPHS (test code = 2809447837) Many GIANT PLATELETS (test code = 5908-9) Present See_Comment A [Automated messa ge] The system which generated this result transmitted reference range: (none). The reference range was not used to interpret this result as normal/abnormal. Lab Interpretation (test code = 24113-5) Abnormal [facility] with Mzoc0094-61-05 12:51:46* Test Item Value Reference Range Interpretation [...] 31.7 g/dL 31.2-35.0 RDW-SD (test code = 36987-6) 49.6 fL 38.5-51.6 RDW-CV (test code = 788-0) 18.2 % 12.1-15.4 H PLT (test code = 777-3) 241 150-328 MPV (test code = 08813-8) 10.8 fL 9.8-13.0 NRBC/100 WBC (test code = 3612527771) 0.0 0.0-10.0 NRBC x10^3 (test code = 3526866625) See_Comment [Automated messa ge] The system which generated this result transmitted reference range: 10*3/?L. The reference range was not used to interpret this result as normal/abnormal. GRAN MAT (NEUT) % (test code = 770-8) 38.3 % IMM GRAN % (test code = 3986684463) 0.20 % LYMPH % (test code = 736-9) 44.1 % MONO % (test code = 5905-5) 15.1 % EOS % (test code = 713-8) 2.1 % BASO % (test code = 706-2) 0.2 % GRAN MAT x10^3(ANC) (test code = 6293928003) 1.97 10*3/uL 1.99-6.95 L IMM GRAN x10^3 (test code = 9499173474) 0.00-0.06 LYMPH x10^3 (test code = 731-0) 2.27 10*3/uL 1.09-3.23 MONO x10^3 (test code = 742-7) 0.78 10*3/uL 0.36-1.02 EOS x10^3 (test code = 711-2) 0.11 10*3/uL 0.06-0.53 BASO x10^3 (test code = 704-7) 0.01-0.09 REACT LYMPHS (test code = 4880739760) Many GIANT PLATELETS (test code = 5908-9) Present See_Comment A [Automated messa ge] The system which generated this result transmitted reference range: (none). The reference range was not used to interpret this result as normal/abnormal. Lab Interpretation (test code = 20740-0) [facility] 12:26:52* Test Item Value Reference Range Interpretation Comme nts MAGNESIUM (test code = 2766270755) 1.8 mg/dL 1.7-2.4 Lab Interpretation (test cod e = 98086-4) Normal [facility] Metabolic Panel (NA, K, CL, CO2, GLUCOSE, BUN, CREATININE, CA)2024-07-17 12:26:52* Test Item Value Reference Range Interpretation Comme nts NA (test code = 0498197138) 135 mmol/L 135-145 K (test code = 0804673803) 3.6 mmol/L 3.5-5.0 CL (test code = 8697814719) 101 mmol/L 98-108 CO2 TOTAL (test code = 4150027047) 31 mmol/L 23-31 AGAP (test code = 7955933172) 3 2-16 BUN (test code = 9651647327) 31 mg/dL 7-23 H GLUCOSE (test code = 7834915613) 102 mg/dL 70-110 CREATININE (test code = 2160-0) 1.57 mg/dL 0.60-1.25 H CALCIUM (test code = 7814140877) 8.5 mg/dL 8.6-10.6 L eGFR (test code = 02497-4) 51.1 mL/min/1.73m2 CKD-EPI eGFR (2020). Assuming creatinine has been stable day-to-day for at least three months, the eGFR indicates Category G3a (45 - 59 mL/min/1.73 m2) Lab Interpretation (test code = 99585-7) Abnormal [facility]2024-12-15 12:26:52* Test Item Value Reference Range Interpretation Comme nts MAGNESIUM (test code = 4985129025) 1.8 mg/dL 1.7-2.4 Lab Interpretation (test cod e = 46438-3) Normal [facility] Metabolic Panel (NA, K, CL, CO2, GLUCOSE, BUN, CREATININE, CA)2024-07-17 12:26:52* Test Item Value Reference Range Interpretation Comme nts NA (test code = 6865726441) 135 mmol/L 135-145 K (test code = 1613007455) 3.6 mmol/L 3.5-5.0 CL (test code = 0577665410) 101 mmol/L 98-108 CO2 TOTAL (test code = 5288965103) 31 mmol/L 23-31 AGAP (test code = 2636939585) 3 2-16 BUN (test code = 3759305479) 31 mg/dL 7-23 H GLUCOSE (test code = 9856800274) 102 mg/dL 70-110 CREATININE (test code = 2160-0) 1.57 mg/dL 0.60-1.25 H CALCIUM (test code = 9545947603) 8.5 mg/dL 8.6-10.6 L eGFR (test code = 22022-3) 51.1 mL/min/1.73m2 CKD-EPI eGFR (2020). Assuming creatinine has been stable day-to-day for at least three months, the eGFR indicates Category G3a (45 - 59 mL/min/1.73 m2) Lab Interpretation (test code = 16960-5) Abnormal [facility]2024-12-15 12:26:52* Test Item Value Reference Range Interpretation Comme nts MAGNESIUM (test code = 1122079299) 1.8 mg/dL 1.7-2.4 Lab Interpretation (test cod e = 60398-7) Normal [facility] Metabolic Panel (NA, K, CL, CO2, GLUCOSE, BUN, CREATININE, CA)2024-07-17 12:26:52* Test Item Value Reference Range Interpretation Comme nts NA (test code = 7218070692) 135 mmol/L 135-145 K (test code = 0515893077) 3.6 mmol/L 3.5-5.0 CL (test code = 2490308959) 101 mmol/L 98-108 CO2 TOTAL (test code = 6725826030) 31 mmol/L 23-31 AGAP (test code = 5644166023) 3 2-16 BUN (test code = 4156963070) 31 mg/dL 7-23 H GLUCOSE (test code = 5014839648) 102 mg/dL 70-110 CREATININE (test code = 2160-0) 1.57 mg/dL 0.60-1.25 H CALCIUM (test code = 1805834136) 8.5 mg/dL 8.6-10.6 L eGFR (test code = 48227-1) 51.1 mL/min/1.73m2 CKD-EPI eGFR (2020). Assuming creatinine has been stable day-to-day for at least three months, the eGFR indicates Category G3a (45 - 59 mL/min/1.73 m2) Lab Interpretation (test code = 70192-6) [facility] - [facility] Zopekak9932-44-13 11:38:00* Test Item Value Reference Range Interpretation Comme nts ABO & RH (test code = 20) O POSITIVE IAT (test code = 1185) Negative [facility] and Screen - ONCE Bmhffkq2806-22-76 11:38:00* Test Item Value Reference Range Interpretation Comme nts ABO & RH (test code = 20) O POSITIVE IAT (test code = 1185) [facility] - [facility] Tyqonfz1650-90-39 11:38:00* Test Item Value Reference Range Interpretation Comme nts ABO & RH (test code = 20) O POSITIVE IAT (test code = 1185) [facility] with [facility]arin Infusion)2024-07-17 09:11:29* Test Item Value Reference Range Interpretation Comme nts APTT Patient (test code = 3173-2) 71 26-36 H Lab Interpretation (test cod e = 60530-4) [facility] 09:11:29* Test Item Value Reference Range Interpretation Comme nts APTT Patient (test code = 3173-2) 71 26-36 H Lab Interpretation (test cod e = 22247-0) [facility] Infusion[facility]2024-07-17 09:11:29* Test Item Value Reference Range Interpretation Comme nts APTT Patient (test code = 3173-2) 71 26-36 H Lab Interpretation (test cod e = 84740-9) Abnormal [facility] GLUCOSE (AUTOMATED)2024-07-17 02:17:59* Test Item Value Reference Range Interpretation Comme nts POCT GLU (test code = 2357855666) 110 mg/dL 70-110 Lab Interpretation (test cod e = 33305-1) Normal [facility] GLUCOSE (AUTOMATED)2024-07-17 02:17:59* Test Item Value Reference Range Interpretation Comme nts POCT GLU (test code = 9565402885) 110 mg/dL 70-110 Lab Interpretation (test cod e = 15390-4) Normal [facility] GLUCOSE (AUTOMATED)2024-07-17 02:17:59* Test Item Value Reference Range Interpretation Comme nts POCT GLU (test code = 0896135277) 110 mg/dL 70-110 Lab Interpretation (test cod e = 64126-5) Normal [facility] GLUCOSE (AUTOMATED)2024-07-16 22:49:27* Test Item Value Reference Range Interpretation Comme nts POCT GLU (test code = 6110450712) 116 mg/dL 70-110 H Lab Interpretation (test cod e = 85800-6) Abnormal [facility] GLUCOSE (AUTOMATED)2024-07-16 22:49:27* Test Item Value Reference Range Interpretation Comme nts POCT GLU (test code = 0932386944) 116 mg/dL 70-110 H Lab Interpretation (test cod e = 62290-7) Abnormal [facility] GLUCOSE (AUTOMATED)2024-07-16 22:49:27* Test Item Value Reference Range Interpretation Comme nts POCT GLU (test code = 4467405073) 116 mg/dL 70-110 H Lab Interpretation (test cod e = 74007-2) [facility] 21:01:17* Test Item Value Reference Range Interpretation Comme nts APTT Patient (test code = 3173-2) 62 26-36 H Lab Interpretation (test cod e = 50249-6) [facility]2024-07-16 21:01:17* Test Item Value Reference Range Interpretation Comme nts APTT Patient (test code = 3173-2) 62 26-36 H Lab Interpretation (test cod e = 35130-4) [facility] Infusion[facility]2024-07-16 21:01:17* Test Item Value Reference Range Interpretation Comme nts APTT Patient (test code = 3173-2) 62 26-36 H Lab Interpretation (test cod e = 86499-5) Abnormal [facility] GLUCOSE (AUTOMATED)2024-07-16 17:47:28* Test Item Value Reference Range Interpretation Comme nts POCT GLU (test code = 5282816816) 105 mg/dL 70-110 Lab Interpretation (test cod e = 58735-3) Normal [facility] GLUCOSE (AUTOMATED)2024-07-16 17:47:28* Test Item Value Reference Range Interpretation Comme nts POCT GLU (test code = 4319458210) 105 mg/dL 70-110 Lab Interpretation (test cod e = 36319-2) Normal [facility] GLUCOSE (AUTOMATED)2024-07-16 17:47:28* Test Item Value Reference Range Interpretation Comme nts POCT GLU (test code = 5836498076) 105 mg/dL 70-110 Lab Interpretation (test cod e = 11508-7) Normal [facility] GLUCOSE (AUTOMATED)2024-07-16 14:57:56* Test Item Value Reference Range Interpretation Comme nts POCT GLU (test code = 5465461177) 132 mg/dL 70-110 H Lab Interpretation (test cod e = 78445-0) Abnormal [facility] GLUCOSE (AUTOMATED)2024-07-16 14:57:56* Test Item Value Reference Range Interpretation Comme nts POCT GLU (test code = 1386727574) 132 mg/dL 70-110 H Lab Interpretation (test cod e = 52096-7) [facility]2024-[facility]-16 14:57:56* Test Item Value Reference Range Interpretation Comme nts POCT GLU (test code = 3494791969) 132 mg/dL 70-110 H Lab Interpretation (test cod e = 62899-7) Abnormal [facility] with Ahyy6887-43-05 08:45:42* Test Item Value Reference Range Interpretation [...] g/dL 31.2-35.0 L RDW-SD (test code = 67747-6) 50.7 fL 38.5-51.6 RDW-CV (test code = 788-0) 18.3 % 12.1-15.4 H PLT (test code = 777-3) 229 150-328 MPV (test code = 74648-3) 10.0 fL 9.8-13.0 NRBC/100 WBC (test code = 8899865352) 0.0 0.0-10.0 NRBC x10^3 (test code = 6382702803) See_Comment [Automated messa ge] The system which generated this result transmitted reference range: 10*3/?L. The reference range was not used to interpret this result as normal/abnormal. GRAN MAT (NEUT) % (test code = 770-8) 34.5 % IMM GRAN % (test code = 4375996261) 0.00 % LYMPH % (test code = 736-9) 46.8 % MONO % (test code = 5905-5) 15.0 % EOS % (test code = 713-8) 3.3 % BASO % (test code = 706-2) 0.4 % GRAN MAT x10^3(ANC) (test code = 5407132150) 1.79 10*3/uL 1.99-6.95 L IMM GRAN x10^3 (test code = 4862062118) 0.00-0.06 LYMPH x10^3 (test code = 731-0) 2.43 10*3/uL 1.09-3.23 MONO x10^3 (test code = 742-7) 0.78 10*3/uL 0.36-1.02 EOS x10^3 (test code = 711-2) 0.17 10*3/uL 0.06-0.53 BASO x10^3 (test code = 704-7) 0.01-0.09 Lab Interpretation (test code = 97085-3) Abnormal [facility] with Jikl5078-40-92 08:45:42* Test Item Value Reference Range Interpretation [...] g/dL 31.2-35.0 L RDW-SD (test code = 05538-3) 50.7 fL 38.5-51.6 RDW-CV (test code = 788-0) 18.3 % 12.1-15.4 H PLT (test code = 777-3) 229 150-328 MPV (test code = 36438-7) 10.0 fL 9.8-13.0 NRBC/100 WBC (test code = 1111020304) 0.0 0.0-10.0 NRBC x10^3 (test code = 4956498689) See_Comment [Automated messa ge] The system which generated this result transmitted reference range: 10*3/?L. The reference range was not used to interpret this result as normal/abnormal. GRAN MAT (NEUT) % (test code = 770-8) 34.5 % IMM GRAN % (test code = 1762020053) 0.00 % LYMPH % (test code = 736-9) 46.8 % MONO % (test code = 5905-5) 15.0 % EOS % (test code = 713-8) 3.3 % BASO % (test code = 706-2) 0.4 % GRAN MAT x10^3(ANC) (test code = 7430944630) 1.79 10*3/uL 1.99-6.95 L IMM GRAN x10^3 (test code = 3488147267) 0.00-0.06 LYMPH x10^3 (test code = 731-0) 2.43 10*3/uL 1.09-3.23 MONO x10^3 (test code = 742-7) 0.78 10*3/uL 0.36-1.02 EOS x10^3 (test code = 711-2) 0.17 10*3/uL 0.06-0.53 BASO x10^3 (test code = 704-7) 0.01-0.09 Lab Interpretation (test code = 53273-4) Abnormal [facility] with Ubxp5566-22-98 08:45:42* Test Item Value Reference Range Interpretation [...] g/dL 31.2-35.0 L RDW-SD (test code = 53939-2) 50.7 fL 38.5-51.6 RDW-CV (test code = 788-0) 18.3 % 12.1-15.4 H PLT (test code = 777-3) 229 150-328 MPV (test code = 09588-5) 10.0 fL 9.8-13.0 NRBC/100 WBC (test code = 0328536361) 0.0 0.0-10.0 NRBC x10^3 (test code = 5622285574) See_Comment [Automated messa ge] The system which generated this result transmitted reference range: 10*3/?L. The reference range was not used to interpret this result as normal/abnormal. GRAN MAT (NEUT) % (test code = 770-8) 34.5 % IMM GRAN % (test code = 9512870024) 0.00 % LYMPH % (test code = 736-9) 46.8 % MONO % (test code = 5905-5) 15.0 % EOS % (test code = 713-8) 3.3 % BASO % (test code = 706-2) 0.4 % GRAN MAT x10^3(ANC) (test code = 6175440976) 1.79 10*3/uL 1.99-6.95 L IMM GRAN x10^3 (test code = 1325116461) 0.00-0.06 LYMPH x10^3 (test code = 731-0) 2.43 10*3/uL 1.09-3.23 MONO x10^3 (test code = 742-7) 0.78 10*3/uL 0.36-1.02 EOS x10^3 (test code = 711-2) 0.17 10*3/uL 0.06-0.53 BASO x10^3 (test code = 704-7) 0.01-0.09 Lab Interpretation (test code = 19598-6) [facility] 08:40:01* Test Item Value Reference Range Interpretation Comme nts MAGNESIUM (test code = 2567478220) 2.1 mg/dL 1.7-2.4 Lab Interpretation (test cod e = 16362-3) [facility] (NA, K, CL, CO2, GLUCOSE, BUN, CREATININE, CA)2024-07-16 08:40:01* Test Item Value Reference Range Interpretation Comme nts NA (test code = 1426907325) 134 mmol/L 135-145 L K (test code = 2778977834) 3.5 mmol/L 3.5-5.0 Slight hemolysis CL (test code = 3520672206) 100 mmol/L 98-108 CO2 TOTAL (test code = 7214663656) 32 mmol/L 23-31 H AGAP (test code = 6660360481) 2 2-16 BUN (test code = 8140729643) 27 mg/dL 7-23 H Slight hemolysis GLUCOSE (test code = 1786174509) 105 mg/dL 70-110 CREATININE (test code = 2160-0) 1.70 mg/dL 0.60-1.25 H CALCIUM (test code = 6108664178) 8.5 mg/dL 8.6-10.6 L eGFR (test code = 14381-4) 46.4 mL/min/1.73m2 CKD-EPI eGFR (2020). Assuming creatinine has been stable day-to-day for at least three months, the eGFR indicates Category G3a (45 - 59 mL/min/1.73 m2) Lab Interpretation (test code = 61105-0) [facility] 08:40:01* Test Item Value Reference Range Interpretation Comme nts MAGNESIUM (test code = 2782633487) 2.1 mg/dL 1.7-2.4 Lab Interpretation (test cod e = 12511-4) Normal [facility] Metabolic Panel (NA, K, CL, CO2, GLUCOSE, BUN, CREATININE, CA)2024-07-16 08:40:01* Test Item Value Reference Range Interpretation Comme nts NA (test code = 1466702775) 134 mmol/L 135-145 L K (test code = 1606291534) 3.5 mmol/L 3.5-5.0 Slight hemolysis CL (test code = 1827989078) 100 mmol/L 98-108 CO2 TOTAL (test code = 2641857509) 32 mmol/L 23-31 H AGAP (test code = 6168736734) 2 2-16 BUN (test code = 4309679763) 27 mg/dL 7-23 H Slight hemolysis GLUCOSE (test code = 3515994819) 105 mg/dL 70-110 CREATININE (test code = 2160-0) 1.70 mg/dL 0.60-1.25 H CALCIUM (test code = 0581249553) 8.5 mg/dL 8.6-10.6 L eGFR (test code = 71224-5) 46.4 mL/min/1.73m2 CKD-EPI eGFR (2020). Assuming creatinine has been stable day-to-day for at least three months, the eGFR indicates Category G3a (45 - 59 mL/min/1.73 m2) Lab Interpretation (test code = 83989-9) Abnormal [facility]2024-12-14 08:40:01* Test Item Value Reference Range Interpretation Comme nts MAGNESIUM (test code = 8446755708) 2.1 mg/dL 1.7-2.4 Lab Interpretation (test cod e = 10686-7) Normal [facility] Metabolic Panel (NA, K, CL, CO2, GLUCOSE, BUN, CREATININE, CA)2024-07-16 08:40:01* Test Item Value Reference Range Interpretation Comme nts NA (test code = 3008660268) 134 mmol/L 135-145 L K (test code = 3031019406) 3.5 mmol/L 3.5-5.0 Slight hemolysis CL (test code = 1018050321) 100 mmol/L 98-108 CO2 TOTAL (test code = 9538099312) 32 mmol/L 23-31 H AGAP (test code = 4523202485) 2 2-16 BUN (test code = 7240144940) 27 mg/dL 7-23 H Slight hemolysis GLUCOSE (test code = 0837681051) 105 mg/dL 70-110 CREATININE (test code = 2160-0) 1.70 mg/dL 0.60-1.25 H CALCIUM (test code = 8970577078) 8.5 mg/dL 8.6-10.6 L eGFR (test code = 17727-5) 46.4 mL/min/1.73m2 CKD-EPI eGFR (2020). Assuming creatinine has been stable day-to-day for at least three months, the eGFR indicates Category G3a (45 - 59 mL/min/1.73 m2) Lab Interpretation (test code = 29802-7) [facility]2024-07-16 08:17:19* Test Item Value Reference Range Interpretation Comme nts APTT Patient (test code = 3173-2) 64 26-36 H Lab Interpretation (test cod e = 23146-4) Abnormal [facility] BranchaPTT (for use with Heparin Infusion)2024-07-16 08:17:19* Test Item Value Reference Range Interpretation Comme nts APTT Patient (test code = 3173-2) 64 26-36 H Lab Interpretation (test cod e = 01197-6) Abnormal [facility] BranchaPTT (for use with Heparin Infusion)2024-07-16 08:17:19* Test Item Value Reference Range Interpretation Comme nts APTT Patient (test code = 3173-2) 64 26-36 H Lab Interpretation (test cod e = 60709-3) Abnormal [facility] GLUCOSE (AUTOMATED)2024-07-16 03:07:23* Test Item Value Reference Range Interpretation Comme nts POCT GLU (test code = 7847020797) 137 mg/dL 70-110 H Lab Interpretation (test cod e = 10369-3) [facility]:07:23* Test Item Value Reference Range Interpretation Comme nts POCT GLU (test code = 5472693662) 137 mg/dL 70-110 H Lab Interpretation (test cod e = 14425-4) [facility] 03:07:23* Test Item Value Reference Range Interpretation Comme nts POCT GLU (test code = 9620843055) 137 mg/dL 70-110 H Lab Interpretation (test cod e = 63833-0) [facility]15 23:48:57* Test Item Value Reference Range Interpretation Comme nts POCT GLU (test code = 8623378757) 132 mg/dL 70-110 H Lab Interpretation (test cod e = 86927-0) [facility] 23:48:57* Test Item Value Reference Range Interpretation Comme nts POCT GLU (test code = 2977370147) 132 mg/dL 70-110 H Lab Interpretation (test cod e = 35525-5) [facility]normal [facility]2024-07-15 23:48:57* Test Item Value Reference Range Interpretation Comme nts POCT GLU (test code = 2715562025) 132 mg/dL 70-110 H Lab Interpretation (test cod e = 24700-2) [id number] 19:35:43* Test Item Value Reference Range Interpretation Comme nts TROPONIN I (test code = 6688779759) 0.202 ng/mL <=0.034 H JACOB (test code [...] of biotin. Lab Interpretation (test code = 61018-3) Abnormal [facility] [id number] 19:35:43* Test Item Value Reference Range Interpretation Comme nts TROPONIN I (test code = 1466299701) 0.202 ng/mL <=0.034 H JACOB (test code [...] of biotin. Lab Interpretation (test code = 41549-0) [facility]normal [facility] [id number] 19:35:43* Test Item Value Reference Range Interpretation Comme [facility] TROPONIN I (test code = 8732344188) 0.202 ng/mL <=0.034 H JACOB (test code [...] of biotin. Lab Interpretation (test code = 02973-9) [facility]normal [facility] Infusion[facility]2024-07-15 19:14:22* Test Item Value Reference Range Interpretation Comme [facility] APTT Patient (test code = 3173-2) 62 26-36 H Lab Interpretation (test cod e = 54746-3) [facility]normal [facility] Infusion[facility]2024-07-15 19:14:22* Test Item Value Reference Range Interpretation Comme [facility] APTT Patient (test code = 3173-2) 62 26-36 H Lab Interpretation (test cod e = 53480-3) [facility]normal [facility] Infusion[facility]2024-07-15 19:14:22* Test Item Value Reference Range Interpretation Comme [facility] APTT Patient (test code = 3173-2) 62 26-36 H Lab Interpretation (test cod e = 09698-7) Abnormal [facility] Taylor[facility] (59596)(Total Cholesterol, Triglycerides, HDL)2024-07-15 18:55:16* Test Item Value Reference Range Interpretation Comme nts CHOL (test code = 7259847444) 171 mg/dL 120-200 HDL (test code = 8245867732) 47 mg/dL >=40 HDLC RATIO (test code = 4917563277) 3.6 <=5.0 TRIG (test code = 5629178843) 97 mg/dL 30-170 LDL CHOL (test code = 46587-2) 105 mg/dL <=160 VLDL (test code = 4387695801) 19 mg/dL 5-60 Lab Interpretation (test cod e = 57591-0) Normal [facility] (15653)(Total Cholesterol, Triglycerides, HDL)2024-07-15 18:55:16* Test Item Value Reference Range Interpretation Comme nts CHOL (test code = 9021235502) 171 mg/dL 120-200 HDL (test code = 8779043087) 47 mg/dL >=40 HDLC RATIO (test code = 2391547459) 3.6 <=5.0 TRIG (test code = 6399481019) 97 mg/dL 30-170 LDL CHOL (test code = 52629-2) 105 mg/dL <=160 VLDL (test code = 8990901298) 19 mg/dL 5-60 Lab Interpretation (test cod e = 68367-7) Normal [facility] Taylor[facility] (90940)(Total Cholesterol, Triglycerides, HDL)2024-07-15 18:55:16* Test Item Value Reference Range Interpretation Comme nts CHOL (test code = 0792453720) 171 mg/dL 120-200 HDL (test code = 4251729409) 47 mg/dL >=40 HDLC RATIO (test code = 0941227746) 3.6 <=5.0 TRIG (test code = 4072996387) 97 mg/dL 30-170 LDL CHOL (test code = 52116-9) 105 mg/dL <=160 VLDL (test code = 3091407440) 19 mg/dL 5-60 Lab Interpretation (test cod e = 21944-6) Normal [facility] GLUCOSE (AUTOMATED)2024-07-15 17:52:57* Test Item Value Reference Range Interpretation Comme nts POCT GLU (test code = 9485919974) 114 mg/dL 70-110 H Lab Interpretation (test cod e = 46209-0) Abnormal [facility] GLUCOSE (AUTOMATED)2024-07-15 17:52:57* Test Item Value Reference Range Interpretation Comme nts POCT GLU (test code = 9748375156) 114 mg/dL 70-110 H Lab Interpretation (test cod e = 82058-6) Abnormal [facility]2024-07-15 17:52:57* Test Item Value Reference Range Interpretation Comme nts POCT GLU (test code = 9745611643) 114 mg/dL 70-110 H Lab Interpretation (test cod e = 32060-1) [facility] [id number] 16:14:32* Test Item Value Reference Range Interpretation Comme nts TROPONIN I (test code = 9153450612) 0.339 ng/mL <=0.034 H JACOB (test code [...] of biotin. Lab Interpretation (test code = 54708-8) Abnormal [facility] [id number] 16:14:32* Test Item Value Reference Range Interpretation Comme nts TROPONIN I (test code = 0139558479) 0.339 ng/mL <=0.034 H JACOB (test code = JAOCB) Reference (Normal) Range (defined by the 99th [...] of biotin. Lab Interpretation (test code = 05696-5) Abnormal [place] [id number] 16:14:32* Test Item Value Reference Range Interpretation Comme nts TROPONIN I (test code = 1733015592) 0.339 ng/mL <=0.034 H JACOB (test code [...] of biotin. Lab Interpretation (test code = 96870-3) Abnormal [facility] GLUCOSE (AUTOMATED)2024-07-15 14:03:01* Test Item Value Reference Range Interpretation Comme nts POCT GLU (test code = 3518099399) 108 mg/dL 70-110 Lab Interpretation (test cod e = 88696-1) Normal [facility] GLUCOSE (AUTOMATED)2024-07-15 14:03:01* Test Item Value Reference Range Interpretation Comme nts POCT GLU (test code = 4962222862) 108 mg/dL 70-110 Lab Interpretation (test cod e = 23302-9) Normal [facility] GLUCOSE (AUTOMATED)2024-07-15 14:03:01* Test Item Value Reference Range Interpretation Comme nts POCT GLU (test code = 3492716611) 108 mg/dL 70-110 Lab Interpretation (test cod e = 97593-8) Normal [facility] Taylor[facility]esium2024-12-13 08:20:51* Test Item Value Reference Range Interpretation Comme nts MAGNESIUM (test code = 0973580767) 1.8 mg/dL 1.7-2.4 Lab Interpretation (test cod e = 81890-7) Normal [facility] Metabolic Panel (NA, K, CL, CO2, GLUCOSE, BUN, CREATININE, CA)2024-07-15 08:20:51* Test Item Value Reference Range Interpretation Comme nts NA (test code = 7393805316) 137 mmol/L 135-145 K (test code = 5232599512) 3.7 mmol/L 3.5-5.0 CL (test code = 7560155693) 102 mmol/L 98-108 CO2 TOTAL (test code = 0404496014) 28 mmol/L 23-31 AGAP (test code = 3583919980) 7 2-16 BUN (test code = 3912814683) 23 mg/dL 7-23 GLUCOSE (test code = 0368008489) 102 mg/dL 70-110 CREATININE (test code = 2160-0) 1.53 mg/dL 0.60-1.25 H CALCIUM (test code = 8000630851) 8.3 mg/dL 8.6-10.6 L eGFR (test code = 45331-4) 52.7 mL/min/1.73m2 CKD-EPI eGFR (2020). Assuming creatinine has been stable day-to-day for at least three months, the eGFR indicates Category G3a (45 - 59 mL/min/1.73 m2) Lab Interpretation (test code = 73589-3) [facility]normal [facility] Taylor[facility]2024-12-13 08:20:51* Test Item Value Reference Range Interpretation Comme nts MAGNESIUM (test code = 9858050166) 1.8 mg/dL 1.7-2.4 Lab Interpretation (test cod e = 69094-8) [facility] (NA, K, CL, CO2, GLUCOSE, BUN, CREATININE, CA)2024-07-15 08:20:51* Test Item Value Reference Range Interpretation Comme nts NA (test code = 7941960356) 137 mmol/L 135-145 K (test code = 9252861746) 3.7 mmol/L 3.5-5.0 CL (test code = 9199569925) 102 mmol/L 98-108 CO2 TOTAL (test code = 9861600822) 28 mmol/L 23-31 AGAP (test code = 8142558096) 7 2-16 BUN (test code = 9642450171) 23 mg/dL 7-23 GLUCOSE (test code = 4919452774) 102 mg/dL 70-110 CREATININE (test code = 2160-0) 1.53 mg/dL 0.60-1.25 H CALCIUM (test code = 4844502931) 8.3 mg/dL 8.6-10.6 L eGFR (test code = 19392-7) 52.7 mL/min/1.73m2 CKD-EPI eGFR (2020). Assuming creatinine has been stable day-to-day for at least three months, the eGFR indicates Category G3a (45 - 59 mL/min/1.73 m2) Lab Interpretation (test code = 06432-6) Abnormal [facility]2024-12-13 08:20:51* Test Item Value Reference Range Interpretation Comme nts MAGNESIUM (test code = 5532269298) 1.8 mg/dL 1.7-2.4 Lab Interpretation (test cod e = 09948-8) Normal [facility] Met[facility] (NA, K, CL, CO2, GLUCOSE, BUN, CREATININE, CA)2024-07-15 08:20:51* Test Item Value Reference Range Interpretation Comme nts NA (test code = 0404576125) 137 mmol/L 135-145 K (test code = 1027977863) 3.7 mmol/L 3.5-5.0 CL (test code = 7246383428) 102 mmol/L 98-108 CO2 TOTAL (test code = 8250789714) 28 mmol/L 23-31 AGAP (test code = 7021562580) 7 2-16 BUN (test code = 1279271861) 23 mg/dL 7-23 GLUCOSE (test code = 0971024959) 102 mg/dL 70-110 CREATININE (test code = 2160-0) 1.53 mg/dL 0.60-1.25 H CALCIUM (test code = 7264153744) 8.3 mg/dL 8.6-10.6 L eGFR (test code = 47667-6) 52.7 mL/min/1.73m2 CKD-EPI eGFR (2020). Assuming creatinine has been stable day-to-day for at least three months, the eGFR indicates Category G3a (45 - 59 mL/min/1.73 m2) Lab Interpretation (test code = 87038-2) Abnormal [facility] use with [facility]arin Infusion)2024-07-15 07:35:06* Test Item Value Reference Range Interpretation Comme nts APTT Patient (test code = 3173-2) 60 26-36 H Lab Interpretation (test cod e = 46708-3) [facility]normal [facility]for use with Heparin Infusion)2024-07-15 07:35:06* Test Item Value Reference Range Interpretation Comme nts APTT Patient (test code = 3173-2) 60 26-36 H Lab Interpretation (test cod e = 19664-6) Abnormal [facility] use with [facility]arin Infusion[facility]2024-07-15 07:35:06* Test Item Value Reference Range Interpretation Comme nts APTT Patient (test code = 3173-2) 60 26-36 H Lab Interpretation (test cod e = 49644-7) Abnormal [facility] with [id number] 07:29:28* Test Item Value Reference Range Interpretation [...] g/dL 31.2-35.0 L RDW-SD (test code = 83501-5) 50.1 fL 38.5-51.6 RDW-CV (test code = 788-0) 17.9 % 12.1-15.4 H PLT (test code = 777-3) 220 150-328 MPV (test code = 38826-2) 10.8 fL 9.8-13.0 NRBC/100 WBC (test code = 4090178536) 0.0 0.0-10.0 NRBC x10^3 (test code = 0260841706) See_Comment [Automated messa ge] The system which generated this result transmitted reference range: 10*3/?L. The reference range was not used to interpret this result as normal/abnormal. GRAN MAT (NEUT) % (test code = 770-8) 44.6 % IMM GRAN % (test code = 0285328761) 0.20 % LYMPH % (test code = 736-9) 38.9 % MONO % (test code = 5905-5) 13.0 % EOS % (test code = 713-8) 2.9 % BASO % (test code = 706-2) 0.4 % GRAN MAT x10^3(ANC) (test code = 3919928637) 2.34 10*3/uL 1.99-6.95 IMM GRAN x10^3 (test code = 9328568429) 0.00-0.06 LYMPH x10^3 (test code = 731-0) 2.04 10*3/uL 1.09-3.23 MONO x10^3 (test code = 742-7) 0.68 10*3/uL 0.36-1.02 EOS x10^3 (test code = 711-2) 0.15 10*3/uL 0.06-0.53 BASO x10^3 (test code = 704-7) 0.01-0.09 Lab Interpretation (test code = 24121-1) Abnormal [facility] with [id number] 07:29:28* Test Item Value Reference Range Interpretation [...] g/dL 31.2-35.0 L RDW-SD (test code = 06363-9) 50.1 fL 38.5-51.6 RDW-CV (test code = 788-0) 17.9 % 12.1-15.4 H PLT (test code = 777-3) 220 150-328 MPV (test code = 19992-6) 10.8 fL 9.8-13.0 NRBC/100 WBC (test code = 9402506272) 0.0 0.0-10.0 NRBC x10^3 (test code = 6034541179) See_Comment [Automated messa ge] The system which generated this result transmitted reference range: 10*3/?L. The reference range was not used to interpret this result as normal/abnormal. GRAN MAT (NEUT) % (test code = 770-8) 44.6 % IMM GRAN % (test code = 4568780587) 0.20 % LYMPH % (test code = 736-9) 38.9 % MONO % (test code = 5905-5) 13.0 % EOS % (test code = 713-8) 2.9 % BASO % (test code = 706-2) 0.4 % GRAN MAT x10^3(ANC) (test code = 3237664163) 2.34 10*3/uL 1.99-6.95 IMM GRAN x10^3 (test code = 9066508820) 0.00-0.06 LYMPH x10^3 (test code = 731-0) 2.04 10*3/uL 1.09-3.23 MONO x10^3 (test code = 742-7) 0.68 10*3/uL 0.36-1.02 EOS x10^3 (test code = 711-2) 0.15 10*3/uL 0.06-0.53 BASO x10^3 (test code = 704-7) 0.01-0.09 Lab Interpretation (test code = 54512-3) Abnormal [facility] with Kmcb3576-35-15 07:29:28* Test Item Value Reference Range Interpretation [...] g/dL 31.2-35.0 L RDW-SD (test code = 86074-9) 50.1 fL 38.5-51.6 RDW-CV (test code = 788-0) 17.9 % 12.1-15.4 H PLT (test code = 777-3) 220 150-328 MPV (test code = 72520-6) 10.8 fL 9.8-13.0 NRBC/100 WBC (test code = 8295963142) 0.0 0.0-10.0 NRBC x10^3 (test code = 7627291955) See_Comment [Automated messa ge] The system which generated this result transmitted reference range: 10*3/?L. The reference range was not used to interpret this result as normal/abnormal. GRAN MAT (NEUT) % (test code = 770-8) 44.6 % IMM GRAN % (test code = 9797264643) 0.20 % LYMPH % (test code = 736-9) 38.9 % MONO % (test code = 5905-5) 13.0 % EOS % (test code = 713-8) 2.9 % BASO % (test code = 706-2) 0.4 % GRAN MAT x10^3(ANC) (test code = 2388123823) 2.34 10*3/uL 1.99-6.95 IMM GRAN x10^3 (test code = 3475571926) 0.00-0.06 LYMPH x10^3 (test code = 731-0) 2.04 10*3/uL 1.09-3.23 MONO x10^3 (test code = 742-7) 0.68 10*3/uL 0.36-1.02 EOS x10^3 (test code = 711-2) 0.15 10*3/uL 0.06-0.53 BASO x10^3 (test code = 704-7) 0.01-0.09 Lab Interpretation (test code = 66492-2) Abnormal [facility] GLUCOSE (AUTOMATED)2024-07-15 02:55:20* Test Item Value Reference Range Interpretation Comme nts POCT GLU (test code = 0389151181) 120 mg/dL 70-110 H Lab Interpretation (test cod e = 69506-6) Abnormal [facility] GLUCOSE (AUTOMATED)2024-07-15 02:55:20* Test Item Value Reference Range Interpretation Comme nts POCT GLU (test code = 9798681207) 120 mg/dL 70-110 H Lab Interpretation (test cod e = 44858-6) Abnormal [facility] GLUCOSE (AUTOMATED)2024-07-15 02:55:20* Test Item Value Reference Range Interpretation Comme nts POCT GLU (test code = 7595067343) 120 mg/dL 70-110 H Lab Interpretation (test cod e = 12651-4) Abnormal [facility] GLUCOSE (AUTOMATED)2024-07-14 22:21:48* Test Item Value Reference Range Interpretation Comme nts POCT GLU (test code = 7639281988) 82 mg/dL 70-110 Lab Interpretation (test cod e = 65448-8) Normal [facility] GLUCOSE (AUTOMATED)2024-07-14 22:21:48* Test Item Value Reference Range Interpretation Comme nts POCT GLU (test code = 0156789863) 82 mg/dL 70-110 Lab Interpretation (test cod e = 07222-7) Normal [facility] GLUCOSE (AUTOMATED)2024-07-14 22:21:48* Test Item Value Reference Range Interpretation Comme nts POCT GLU (test code = 7221565685) 82 mg/dL 70-110 Lab Interpretation (test cod e = 09449-2) [facility] Vlwbmkd9566-26-41 20:59:32* Test Item Value Reference Range Interpretation Comme nts Height (test code = 8450467381) 74 in Weight (test code = 5916526468) 298 lbs Systolic BP (test code = 3853154621) 133 mmHg Diastolic BP (test code = 9062654185) 94 mmHg Heart Rate (test code = 0760841310) 86 bpm LVOT stroke volume (test code = 9284954282) 21.80 cm3 EF(Teich) (test code = 7224056638) 14.10 % LVIDD (test code = 4167273622) 8.60 cm LVIDS (test code = 3345916236) 8.00 cm Left Ventricular End Systolic Volume by Teichholz Method (test code = 3714362) 347.9 mL Left Ventricular End Diastolic Volume by Teichholz Method (test code = 0176179) 404.9 mL IVS (test code = 1323019361) 1.32 cm LVPWD (test code = 1149721573) 0.86 cm LVOT diameter (test code = 1224443477) 2.13 cm LVOT area (test code = 4508943150) 3.60 cm2 FS (test code = 8573957970) 7 % MV Peak E Sommer (test code = 6343289966) 110.0 cm/s MV Peak A Sommer (test code = 7912328919) 85.4 cm/s E/A ratio (test code = 3597228890) 1.29 ratio E wave decelartion time (test code = 3596540575) 0.15 s LA Volume Index (BP) (test code = 1420471636) 45.3 mL/m2 LA volume (BP) (test code = 0460440471) 116.7 mL LVOT peak sommer (test code = 4367731371) 49.8 cm/s LVOT mn grad (test code = 9912754283) 0.5 mmHg BSA (test code = 5099451500) 2.6 m2 LA size (test code = 7122139743) 4.7 cm LAV(MOD-sp2) (test code = 6882390392) 109.40 mL LAV(MOD-sp4) (test code = 1854517425) 92.10 mL Tapse (test code = 4463641775) 1.83 cm Ao peak sommer (test code = 9227137390) 62.7 cm/s AV LVOT peak gradient (test code = 6852669433) 0.99 mmHg LVOT peak VTI (test code = 1268932945) 6.1 cm AV area peak sommer (test code = 5287016498) 2.8 cm2 LV V1 mean (test code = 1041967702) 35.10 cm/s Ao max PG (test code = 7654579516) 1.57 mm[Hg] MV Prop V (test code = 5956159710) 40.30 cm/s TR Peak Sommer (test code = 8041842228) 296.6 cm/s Triscuspid Valve Regurgitation Peak Gradient (test code = 6731403709) 35.2 mmHg Ao root diam (test code = 9699636770) 3.50 cm AV peak gradient (test code = 8818892665) 1.57 mmHg Aortic root (test code = 0491052014) 3.5 cm Ao root annulus (test code = 2951356143) 3.5 cm PW (test code = 1629214794) 0.86 cm 0.6-1.1 EF - 2D (test code = 43359648) 14.10 % Interventricular Septum Diastolic Thickness by 2D (test code = 7584550) 1.32 cm RA A4Cs (test code = 6475163786) 20.00 cm2 TASV (test code = 7563595538) 11.9 cm/s IVC Diam Exp(MM) (test code = 0867625529) 1.63 cm IVC Diam Ins(MM) (test code = 8392845273) 0.97 cm RV-covarrubias mid d (test code = 9906292533) 4.0 cm LV Diastolic Volume (BP) (test code = 5651931796) 399.2 mL LV Diastolic Volume Index (BP) (test code = 5954831345) 153.5 mL/m2 Radiology Study observation (narrative) (test code = 22029-8) JACOB (test code = JACOB) ?Left?Ventricle: Left [...] mL of Lumason ultrasound enhancing agent used. [facility] Ufrpiad6218-47-94 20:59:32* Test Item Value Reference Range Interpretation Comme nts Height (test code = 8667615705) 74 in Weight (test code = 1682120753) 298 lbs Systolic BP (test code = 0851907358) 133 mmHg Diastolic BP (test code = 3408271006) 94 mmHg Heart Rate (test code = 4475206432) 86 bpm LVOT stroke volume (test code = 4196498604) 21.80 cm3 EF(Teich) (test code = 2809870377) 14.10 % LVIDD (test code = 2033089295) 8.60 cm LVIDS (test code = 1126086220) 8.00 cm Left Ventricular End Systolic Volume by Teichholz Method (test code = 2458023) 347.9 mL Left Ventricular End Diastolic Volume by Teichholz Method (test code = 6081347) 404.9 mL IVS (test code = 1484204661) 1.32 cm LVPWD (test code = 2605093065) 0.86 cm LVOT diameter (test code = 0425428370) 2.13 cm LVOT area (test code = 5101944587) 3.60 cm2 FS (test code = 9448142317) 7 % MV Peak E Sommer (test code = 8675084642) 110.0 cm/s MV Peak A Sommer (test code = 9369717371) 85.4 cm/s E/A ratio (test code = 2263714815) 1.29 ratio E wave decelartion time (test code = 8515052465) 0.15 s LA Volume Index (BP) (test code = 9211613765) 45.3 mL/m2 LA volume (BP) (test code = 8076943632) 116.7 mL LVOT peak sommer (test code = 0379303373) 49.8 cm/s LVOT mn grad (test code = 1655570745) 0.5 mmHg BSA (test code = 2065605826) 2.6 m2 LA size (test code = 0966381414) 4.7 cm LAV(MOD-sp2) (test code = 2816170596) 109.40 mL LAV(MOD-sp4) (test code = 2548385976) 92.10 mL Tapse (test code = 8871576744) 1.83 cm Ao peak sommer (test code = 3747925089) 62.7 cm/s AV LVOT peak gradient (test code = 6510918842) 0.99 mmHg LVOT peak VTI (test code = 1710399117) 6.1 cm AV area peak sommer (test code = 1780689028) 2.8 cm2 LV V1 mean (test code = 3771972105) 35.10 cm/s Ao max PG (test code = 7392590873) 1.57 mm[Hg] MV Prop V (test code = 2801239776) 40.30 cm/s TR Peak Sommer (test code = 9005404802) 296.6 cm/s Triscuspid Valve Regurgitation Peak Gradient (test code = 8781301510) 35.2 mmHg Ao root diam (test code = 5438928547) 3.50 cm AV peak gradient (test code = 2618315888) 1.57 mmHg Aortic root (test code = 3683787290) 3.5 cm Ao root annulus (test code = 5527537964) 3.5 cm PW (test code = 7628759653) 0.86 cm 0.6-1.1 EF - 2D (test code = 37859711) 14.10 % Interventricular Septum Diastolic Thickness by 2D (test code = 9932123) 1.32 cm RA A4Cs (test code = 1452644944) 20.00 cm2 TASV (test code = 5814054473) 11.9 cm/s IVC Diam Exp(MM) (test code = 1031417463) 1.63 cm IVC Diam Ins(MM) (test code = 0835829335) 0.97 cm RV-covarrubias mid d (test code = 3716918053) 4.0 cm LV Diastolic Volume (BP) (test code = 9356393706) 399.2 mL LV Diastolic Volume Index (BP) (test code = 5933348783) 153.5 mL/m2 Radiology Study observation (narrative) (test code = 65745-1) JACOB (test code = JACOB) ?Left?Ventricle: Left [...] mL of Lumason ultrasound enhancing agent used. [facility] Ghtltav7594-58-24 20:59:32* Test Item Value Reference Range Interpretation Comme nts Height (test code = 9827358077) 74 in Weight (test code = 8625044955) 298 lbs Systolic BP (test code = 9825348897) 133 mmHg Diastolic BP (test code = 1775594083) 94 mmHg Heart Rate (test code = 4520221100) 86 bpm LVOT stroke volume (test code = 9516640420) 21.80 cm3 EF(Teich) (test code = 1785103361) 14.10 % LVIDD (test code = 0542588424) 8.60 cm LVIDS (test code = 6914831640) 8.00 cm Left Ventricular End Systolic Volume by Teichholz Method (test code = 0571787) 347.9 mL Left Ventricular End Diastolic Volume by Teichholz Method (test code = 5044443) 404.9 mL IVS (test code = 5573417832) 1.32 cm LVPWD (test code = 3647541350) 0.86 cm LVOT diameter (test code = 7344775007) 2.13 cm LVOT area (test code = 6113011316) 3.60 cm2 FS (test code = 4282203012) 7 % MV Peak E Sommer (test code = 8515357285) 110.0 cm/s MV Peak A Sommer (test code = 8016785087) 85.4 cm/s E/A ratio (test code = 4572775347) 1.29 ratio E wave decelartion time (test code = 0634214479) 0.15 s LA Volume Index (BP) (test code = 0713739539) 45.3 mL/m2 LA volume (BP) (test code = 4776396394) 116.7 mL LVOT peak sommer (test code = 7405628149) 49.8 cm/s LVOT mn grad (test code = 6820609044) 0.5 mmHg BSA (test code = 1687885157) 2.6 m2 LA size (test code = 2308721574) 4.7 cm LAV(MOD-sp2) (test code = 6395060066) 109.40 mL LAV(MOD-sp4) (test code = 4401204493) 92.10 mL Tapse (test code = 6572876662) 1.83 cm Ao peak sommer (test code = 4186331696) 62.7 cm/s AV LVOT peak gradient (test code = 4664360398) 0.99 mmHg LVOT peak VTI (test code = 9926807255) 6.1 cm AV area peak sommer (test code = 5834326538) 2.8 cm2 LV V1 mean (test code = 9902640054) 35.10 cm/s Ao max PG (test code = 4808675239) 1.57 mm[Hg] MV Prop V (test code = 7752740259) 40.30 cm/s TR Peak Sommer (test code = 7932794387) 296.6 cm/s Triscuspid Valve Regurgitation Peak Gradient (test code = 9465405171) 35.2 mmHg Ao root diam (test code = 5249289253) 3.50 cm AV peak gradient (test code = 1702218126) 1.57 mmHg Aortic root (test code = 7249924768) 3.5 cm Ao root annulus (test code = 6676016488) 3.5 cm PW (test code = 1029451263) 0.86 cm 0.6-1.1 EF - 2D (test code = 73054595) 14.10 % Interventricular Septum Diastolic Thickness by 2D (test code = 5484772) 1.32 cm RA A4Cs (test code = 5755030912) 20.00 cm2 TASV (test code = 3376934476) 11.9 cm/s IVC Diam Exp(MM) (test code = 5684351453) 1.63 cm IVC Diam Ins(MM) (test code = 7613433803) 0.97 cm RV-covarrubias mid d (test code = 8160106101) 4.0 cm LV Diastolic Volume (BP) (test code = 5319415338) 399.2 mL LV Diastolic Volume Index (BP) (test code = 4925512557) 153.5 mL/m2 Radiology Study observation (narrative) (test code = 03680-1) JACOB (test code = JACOB) ?Left?Ventricle: Left [...] mL of Lumason ultrasound enhancing agent used. [facility] GLUCOSE (AUTOMATED)2024-07-14 17:42:18* Test Item Value Reference Range Interpretation Comme nts POCT GLU (test code = 9373019166) 112 mg/dL 70-110 H Lab Interpretation (test cod e = 94119-3) Abnormal [facility] GLUCOSE (AUTOMATED)2024-07-14 17:42:18* Test Item Value Reference Range Interpretation Comme nts POCT GLU (test code = 0228670948) 112 mg/dL 70-110 H Lab Interpretation (test cod e = 31280-8) Abnormal [facility] GLUCOSE (AUTOMATED)2024-07-14 17:42:18* Test Item Value Reference Range Interpretation Comme nts POCT GLU (test code = 8634272069) 112 mg/dL 70-110 H Lab Interpretation (test cod e = 14161-2) Abnormal [facility] GLUCOSE (AUTOMATED)2024-07-14 14:12:17* Test Item Value Reference Range Interpretation Comme nts POCT GLU (test code = 9561883106) 100 mg/dL 70-110 Lab Interpretation (test cod e = 70777-2) Normal [facility] GLUCOSE (AUTOMATED)2024-07-14 14:12:17* Test Item Value Reference Range Interpretation Comme nts POCT GLU (test code = 7452074719) 100 mg/dL 70-110 Lab Interpretation (test cod e = 06244-2) Normal [facility] GLUCOSE (AUTOMATED)2024-07-14 14:12:17* Test Item Value Reference Range Interpretation Comme nts POCT GLU (test code = 0348853197) 100 mg/dL 70-110 Lab Interpretation (test cod e = 02309-8) Normal [facility] GLUCOSE (AUTOMATED)2024-07-14 04:15:43* Test Item Value Reference Range Interpretation Comme nts POCT GLU (test code = 5204401325) 106 mg/dL 70-110 Lab Interpretation (test cod e = 88395-2) Normal [facility] GLUCOSE (AUTOMATED)2024-07-14 04:15:43* Test Item Value Reference Range Interpretation Comme nts POCT GLU (test code = 4646533663) 106 mg/dL 70-110 Lab Interpretation (test cod e = 72072-3) Normal [facility] GLUCOSE (AUTOMATED)2024-07-14 04:15:43* Test Item Value Reference Range Interpretation Comme nts POCT GLU (test code = 2831695362) 106 mg/dL 70-110 Lab Interpretation (test cod e = 84579-8) [facility] [id number] 00:55:40* Test Item Value Reference Range Interpretation Comme nts LACTIC ACID (test code = 2869751770) 1.51 mmol/L 0.50-2.20 Lab Interpretation (test cod e = 02216-7) [facility] Whole Gynjf0501-00-60 00:55:40* Test Item Value Reference Range Interpretation Comme nts LACTIC ACID (test code = 9276789019) 1.51 mmol/L 0.50-2.20 Lab Interpretation (test cod e = 52603-0) [facility] Taylor[facility] Whole [id number] 00:55:40* Test Item Value Reference Range Interpretation Comme nts LACTIC ACID (test code = 5434049295) 1.51 mmol/L 0.50-2.20 Lab Interpretation (test cod e = 30689-0) Normal [facility] Chest 1 [id number] 18:40:36HISTORY: Heart failure. TECHNIQUE: Portable AP view [...] cardiomegaly, congestedcentral pulmonary arteries and minimal pulmonary edema.[facility] Chest 1 2024-07-13 18:40:36HISTORY: Heart failure. [...] cardiomegaly, congestedcentral pulmonary arteries and minimal pulmonary edema.[facility] Chest 1 [id number] 18:40:36HISTORY: Heart failure. TECHNIQUE: Portable AP view [...] cardiomegaly, congestedcentral pulmonary arteries and minimal pulmonary edema.[facility] GLUCOSE (AUTOMATED)2024-07-04 17:55:31* Test Item Value Reference Range Interpretation Comme nts POCT GLU (test code = 7081136577) 97 mg/dL 70-110 Lab Interpretation (test cod e = 20307-2) Normal [facility] GLUCOSE (AUTOMATED)2024-07-04 13:46:04* Test Item Value Reference Range Interpretation Comme nts POCT GLU (test code = 2230085534) 89 mg/dL 70-110 Lab Interpretation (test cod e = 52016-6) Normal [facility] GLUCOSE (AUTOMATED)2024-07-04 02:33:00* Test Item Value Reference Range Interpretation Comme nts POCT GLU (test code = 0273798051) 108 mg/dL 70-110 Lab Interpretation (test cod e = 04506-3) [facility] 1 [id number] 23:00:50History: chest pain . Exam: XR CHEST 1 VW Date: 07/03/2024 3:30 PM Ordering provider: MICHELLE MIRANDAComparison: 05/15/2024. Findings: Frontal view of the chest is obtained. Left-sided pacemaker ICD is noted. The cardiac silhouette is severelyenlarged. There is severe dextroscoliosis centered in themidthoracicspine. There are mild bilateral perihilar opacities. Small left pleuraleffusion is possible. No evidence of pneumothorax.[facility] [id number] 22:22:48* Test Item Value Reference Range Interpretation Comme nts TROPONIN I (test code = 3876938842) 0.047 ng/mL <=0.034 H JACOB (test code [...] of biotin. Lab Interpretation (test code = 99711-5) [facility]normal [facility] TaylorN-TERMINAL [id number] 22:20:07* Test Item Value Reference Range Interpretation Comme nts NT-proBNP (test code = 23287-9) 7260 pg/mL <=125 H JACOB (test code = JACOB) Positive: Heart Failure Likely Lab Interpretation (test code = 35041-7) [facility]normal [facility] TaylorCOMP. METABOLIC PANEL (16724)2024-07-03 22:11:08* Test Item Value Reference Range Interpretation Comme nts NA (test code = 3852033652) 141 mmol/L 135-145 K (test code = 7151946606) 3.5 mmol/L 3.5-5.0 CL (test code = 4158498600) 106 mmol/L 98-108 CO2 TOTAL (test code = 0863917781) 26 mmol/L 23-31 AGAP (test code = 3144780750) 9 2-16 BUN (test code = 6601123675) 27 mg/dL 7-23 H GLUCOSE (test code = 1639423533) 69 mg/dL 70-110 L CREATININE (test code = 2160-0) 2.09 mg/dL 0.60-1.25 H TOTAL BILI (test code = 5041329448) 0.8 mg/dL 0.1-1.1 CALCIUM (test code = 8588624436) 9.0 mg/dL 8.6-10.6 T PROTEIN (test code = 0334943400) 7.3 g/dL 6.3-8.2 ALBUMIN (test code = 7128003412) 3.9 g/dL 3.5-5.0 ALK PHOS (test code = 9819720179) 79 U/L 34-122 ALTv (test code = 1742-6) 18 U/L 5-50 AST(SGOT) (test code = 5478882655) 34 U/L 13-40 eGFR (test code = 05427-6) 36.2 mL/min/1.73m2 CKD-EPI eGFR (2020). Assuming creatinine has been stable day-to-day for at least three months, the eGFR indicates Category G3b (30 - 44 mL/min/1.73 m2) Lab Interpretation (test code = 29397-8) [facility]normal [facility] TaylorLIPASE2024-12-01 22:10:48* Test Item Value Reference Range Interpretation Comme nts LIPASE (test code = 8526664351) 73 U/L 0-220 Lab Interpretation (test cod e = 51758-1) Normal [facility] TaylorCB WITH [id number] 21:45:10* Test Item Value Reference Range Interpretation [...] g/dL 31.2-35.0 L RDW-SD (test code = 46010-0) 52.2 fL 38.5-51.6 H RDW-CV (test code = 788-0) 17.2 % 12.1-15.4 H PLT (test code = 777-3) 193 150-328 MPV (test code = 18517-4) 10.8 fL 9.8-13.0 NRBC/100 WBC (test code = 0320965734) 0.0 0.0-10.0 NRBC x10^3 (test code = 7242943807) See_Comment [Automated messa ge] The system which generated this result transmitted reference range: 10*3/?L. The reference range was not used to interpret this result as normal/abnormal. GRAN MAT (NEUT) % (test code = 770-8) 45.1 % IMM GRAN % (test code = 4275621812) 0.20 % LYMPH % (test code = 736-9) 38.6 % MONO % (test code = 5905-5) 14.2 % EOS % (test code = 713-8) 1.4 % BASO % (test code = 706-2) 0.5 % GRAN MAT x10^3(ANC) (test code = 8993942929) 2.53 10*3/uL 1.99-6.95 IMM GRAN x10^3 (test code = 3887945321) 0.00-0.06 LYMPH x10^3 (test code = 731-0) 2.17 10*3/uL 1.09-3.23 MONO x10^3 (test code = 742-7) 0.80 10*3/uL 0.36-1.02 EOS x10^3 (test code = 711-2) 0.08 10*3/uL 0.06-0.53 BASO x10^3 (test code = 704-7) 0.03 10*3/uL 0.01-0.09 Lab Interpretation (test code = 11126-3) [id number] 21:12:00Michelle Miranda MD ? ? 07/03/2024 ?8:31 [...] separately billable procedures and treating other patients. [facility] GLUCOSE (AUTOMATED)2024-05-17 21:59:02* Test Item Value Reference Range Interpretation Comme nts POCT GLU (test code = 1908159865) 95 mg/dL 70-110 Lab Interpretation (test cod e = 65987-3) Normal [facility] TaylorTroponin [id number] 19:41:19* Test Item Value Reference Range Interpretation Comme nts TROPONIN I (test code = 6947793288) 0.017 ng/mL <=0.034 JACOB (test code = [...] of biotin. Lab Interpretation (test code = 26052-2) Normal [facility] GLUCOSE (AUTOMATED)2024-05-17 16:46:03* Test Item Value Reference Range Interpretation Comme nts POCT GLU (test code = 8146057037) 93 mg/dL 70-110 Lab Interpretation (test cod e = 24362-8) Normal [facility] GLUCOSE (AUTOMATED)2024-05-17 12:38:30* Test Item Value Reference Range Interpretation Comme nts POCT GLU (test code = 4725229386) 87 mg/dL 70-110 Lab Interpretation (test cod e = 32193-8) Normal [facility] GLUCOSE (AUTOMATED)2024-05-17 01:07:02* Test Item Value Reference Range Interpretation Comme nts POCT GLU (test code = 0887804139) 92 mg/dL 70-110 Lab Interpretation (test cod e = 22690-5) Normal [facility] GLUCOSE (AUTOMATED)2024-05-16 21:12:28* Test Item Value Reference Range Interpretation Comme nts POCT GLU (test code = 1246566063) 76 mg/dL 70-110 Lab Interpretation (test cod e = 83879-3) Normal [facility] GLUCOSE (AUTOMATED)2024-05-16 19:09:28* Test Item Value Reference Range Interpretation Comme nts POCT GLU (test code = 6223261486) 102 mg/dL 70-110 Lab Interpretation (test cod e = 57234-6) Normal [facility] GLUCOSE (AUTOMATED)2024-05-16 16:09:25* Test Item Value Reference Range Interpretation Comme nts POCT GLU (test code = 1230874808) 67 mg/dL 70-110 L Lab Interpretation (test cod e = 73130-7) Abnormal [facility] GLUCOSE (AUTOMATED)2024-05-16 12:40:56* Test Item Value Reference Range Interpretation Comme nts POCT GLU (test code = 0649722140) 83 mg/dL 70-110 Lab Interpretation (test cod e = 05950-6) Normal [facility] GLUCOSE (AUTOMATED)2024-05-16 02:07:26* Test Item Value Reference Range Interpretation Comme nts POCT GLU (test code = 7164956396) 87 mg/dL 70-110 Lab Interpretation (test cod e = 91875-6) Normal [facility] TaylorTransthoracic echo (TTE)2024-05-16 00:28:47* Test Item Value Reference Range Interpretation Comme nts Height (test code = 2578852408) 74 in Weight (test code = 0210729849) 297 lbs Systolic BP (test code = 7175320556) 132 mmHg Diastolic BP (test code = 5434748507) 87 mmHg Heart Rate (test code = 6077543611) 79 bpm RVOT diameter (test code = 5515974855) 2.8 cm RVOT Proximal Diameter (test code = 5464234535) 3.70 cm MR max PG (test code = 5279997581) 31.40 mm[Hg] MR max sommer (test code = 9358039703) 280.00 cm/s Ao root diam (test code = 3972268076) 3.40 cm Mr max sommer (test code = 8952834204) 280.0 m/s Aortic root (test code = 9296163292) 3.4 cm Ao root annulus (test code = 4701545373) 3.4 cm BSA (test code = 7499856959) 2.6 m2 LA size (test code = 5215677898) 4.1 cm ACS (test code = 7225245299) 2.50 cm TR Peak Sommer (test code = 3562665901) 317.6 cm/s Triscuspid Valve Regurgitation Peak Gradient (test code = 4950947342) 37.8 mmHg PV PEAK VELOCITY (test code = 3792177610) 67.6 cm/s PV peak gradient (test code = 0230419175) 1.83 mmHg LVIDD (test code = 8830486768) 6.30 cm Left Ventricular End Diastolic Volume by Teichholz Method (test code = 2100757) 202.4 mL IVS (test code = 7039936678) 2.15 cm Interventricular Septum Diastolic Thickness by 2D (test code = 6654801) 2.15 cm LVPWD (test code = 5269121994) 2.01 cm PW (test code = 0424253559) 2.01 cm 0.6-1.1 EF(Teich) (test code = 5068806579) 7.00 % LVIDS (test code = 2943040746) 6.10 cm Left Ventricular End Systolic Volume by Teichholz Method (test code = 8705404) 188.2 mL FS (test code = 8274157100) 3 % EF - 2D (test code = 18814570) 7.00 % A4C EF (test code = 8300739685) 7.70 % EF(sp4-el) (test code = 7290185499) 7.80 % SV(MOD-sp4) (test code = 8705193400) 22.50 mL SV(sp4-el) (test code = 4005103313) 23.70 mL MV E-F slope (test code = 9421142624) 42.30 cm/s MV Peak E Sommer (test code = 3055530974) 108.5 cm/s MV valve area p 1/2 method (test code = 1618836295) 6.50 cm2 MV dec slope (test code = 2803055786) 942.60 cm/s2 MV P1/2t max sommer (test code = 9754290298) 109.50 cm/s LVOT peak sommer (test code = 4349712510) 81.2 cm/s LVOT mn grad (test code = 0770687469) 0.9 mmHg AV LVOT peak gradient (test code = 7287885892) 2.6 mmHg LVOT peak VTI (test code = 3399282402) 11.8 cm LV V1 mean (test code = 4381843390) 39.70 cm/s Aortic valve mean velocity (test code = 9066267334) 66.8 cm/s Ao peak sommer (test code = 8007651608) 109.1 cm/s Ao VTI (test code = 3404746680) 18.1 cm Ao max PG (test code = 9654850119) 4.80 mm[Hg] AV peak gradient (test code = 1577574752) 4.8 mmHg AV mean gradient (test code = 5206546715) 2.08 mmHg AV regurgitation pressure 1/2 time (test code = 2135298699) 424.9 ms AI dec slope (test code = 3183923722) 133.80 cm/s2 AI max sommer (test code = 9455452820) 194.10 cm/s AI max PG (test code = 1134493897) 15.10 mm[Hg] LAV(MOD-sp4) (test code = 2004381307) 97.70 mL LA Volume Index (BP) (test code = 6311804569) 40.7 mL/m2 LA volume (BP) (test code = 9644463058) 104.7 mL LAV(MOD-sp2) (test code = 6076814022) 107.20 mL LVOT stroke volume (test code = 1954637332) 57.10 cm3 LVOT diameter (test code = 2909803966) 2.49 cm LVOT area (test code = 6325666037) 4.90 cm2 AV area by cont VTI (test code = 0829378015) 3.2 cm2 AV area peak sommer (test code = 4774198244) 3.6 cm2 AV valve area (test code = 3021351627) 3.20 cm2 RVOT area (test code = 7013870905) 6.15 cm2 Radiology Study observation (narrative) (test code = 36925-9) JACOB (test code = JACOB) ?Left?Ventricle: Left [...] mL of Lumason ultrasound enhancing agent [facility]. [facility](12021)(Total Cholesterol, Triglycerides, HDL)2024-05-15 08:45:30* Test Item Value Reference Range Interpretation Comme nts CHOL (test code = 9284167035) 112 mg/dL 120-200 L HDL (test code = 5023639865) 37 mg/dL >=40 L HDLC RATIO (test code = 2724437732) 3.0 <=5.0 TRIG (test code = 2032245956) 74 mg/dL 30-170 LDL CHOL (test code = 25979-4) 60 mg/dL <=160 VLDL (test code = 5374327736) 15 mg/dL 5-60 Lab Interpretation (test cod e = 45305-2) Abnormal [facility] TaylorTroponin [id number] 08:34:05* Test Item Value Reference Range Interpretation Comme nts TROPONIN I (test code = 1079480383) 0.049 ng/mL <=0.034 H JACOB (test code [...] of biotin. Lab Interpretation (test code = 17571-3) Abnormal [facility] TaylorN-TERMINAL [id number] 08:31:48* Test Item Value Reference Range Interpretation Comme nts NT-proBNP (test code = 33215-4) 91782 pg/mL <=125 H JACOB (test code = JACOB) Positive: Heart Failure Likely Lab Interpretation (test code = 85931-8) [facility]normal [facility] TaylorHEPATIC FUNCTION PANEL (01708) (ALB,T.PRO,BILI T,BU/BC,ALT,AST,ALK PHOS)2024-05-15 08:24:47* Test Item Value Reference Range Interpretation Comme nts TOTAL BILI (test code = 1374510139) 1.6 mg/dL 0.1-1.1 H BILI UNCON (test code = 3912338461) 1.2 mg/dL 0.1-1.1 H BILI CONJ (test code = 2181698619) 0.0 mg/dL 0.0-0.3 T PROTEIN (test code = 0254043282) 7.3 g/dL 6.3-8.2 ALBUMIN (test code = 4160045925) 3.6 g/dL 3.5-5.0 ALK PHOS (test code = 8868386675) 64 U/L 34-122 ALTv (test code = 1742-6) 29 U/L 5-50 AST(SGOT) (test code = 8377226913) 39 U/L 13-40 Lab Interpretation (test cod e = 31366-8) [facility]normal [facility] TaylorTroponin [id number] 06:18:18* Test Item Value Reference Range Interpretation Comme nts TROPONIN I (test code = 9333148397) 0.052 ng/mL <=0.034 H JACOB (test code [...] of biotin. Lab Interpretation (test code = 56624-7) [facility]normal [facility] TaylorXR CHEST 1 [id number] 06:12:19Exam: Chest (1 View), 05/15/2024 12:15 AM. [...] is no focalconsolidation. ?Osseous structures show degenerative changes.[facility] TaylorN-Terminal Pro-Bnp 2024-05-15 06:09:01* Test Item Value Reference Range Interpretation Comme nts NT-proBNP (test code = 07664-6) 41138 pg/mL <=125 H JACOB (test code = JACOB) Positive: Heart Failure Likely Lab Interpretation (test code = 00010-4) Abnormal [facility] TaylorCom. Metabolic Panel (85513)2024-05-15 05:59:19* Test Item Value Reference Range Interpretation Comme nts NA (test code = 3455646747) 139 mmol/L 135-145 K (test code = 1575735159) 4.1 mmol/L 3.5-5.0 CL (test code = 5585840097) 108 mmol/L 98-108 CO2 TOTAL (test code = 6688760016) 23 mmol/L 23-31 AGAP (test code = 1852667604) 8 2-16 BUN (test code = 5218599905) 17 mg/dL 7-23 GLUCOSE (test code = 1276146549) 107 mg/dL 70-110 CREATININE (test code = 2160-0) 1.51 mg/dL 0.60-1.25 H TOTAL BILI (test code = 1547335234) 1.6 mg/dL 0.1-1.1 H CALCIUM (test code = 1079528273) 8.9 mg/dL 8.6-10.6 T PROTEIN (test code = 0005667874) 7.6 g/dL 6.3-8.2 ALBUMIN (test code = 1175083419) 3.9 g/dL 3.5-5.0 ALK PHOS (test code = 3863213766) 70 U/L 34-122 ALTv (test code = 1742-6) 31 U/L 5-50 AST(SGOT) (test code = 9802188605) 42 U/L 13-40 H eGFR (test code = 36152-6) 53.5 mL/min/1.73m2 CKD-EPI eGFR (2020). Assuming creatinine has been stable day-to-day for at least three months, the eGFR indicates Category G3a (45 - 59 mL/min/1.73 m2) Lab Interpretation (test code = 97548-8) [facility]normal [facility] TaylorMagnesium2024-10-13 05:59:19* Test Item Value Reference Range Interpretation Comme nts MAGNESIUM (test code = 0375470008) 1.8 mg/dL 1.7-2.4 Lab Interpretation (test cod e = 80529-5) Normal [facility] TaylorLipase2024-10-13 05:58:59* Test Item Value Reference Range Interpretation Comme nts LIPASE (test code = 2447239322) 29 U/L 0-220 Lab Interpretation (test cod e = 87984-6) Normal [facility] TaylorCbc with [id number] 05:50:57* Test Item Value Reference Range Interpretation [...] g/dL 31.2-35.0 L RDW-SD (test code = 99820-4) 50.0 fL 38.5-51.6 RDW-CV (test code = 788-0) 16.2 % 12.1-15.4 H PLT (test code = 777-3) 222 150-328 MPV (test code = 01041-3) 10.9 fL 9.8-13.0 NRBC/100 WBC (test code = 3645299388) 0.6 0.0-10.0 NRBC x10^3 (test code = 4783845283) 0.03 See_Comment [Automated messa ge] The system which generated this result transmitted reference range: 10*3/?L. The reference range was not used to interpret this result as normal/abnormal. GRAN MAT (NEUT) % (test code = 770-8) 53.5 % IMM GRAN % (test code = 2843216059) 0.20 % LYMPH % (test code = 736-9) 36.7 % MONO % (test code = 5905-5) 7.9 % EOS % (test code = 713-8) 1.3 % BASO % (test code = 706-2) 0.4 % GRAN MAT x10^3(ANC) (test code = 5334070847) 2.85 10*3/uL 1.99-6.95 IMM GRAN x10^3 (test code = 7219980848) 0.00-0.06 LYMPH x10^3 (test code = 731-0) 1.95 10*3/uL 1.09-3.23 MONO x10^3 (test code = 742-7) 0.42 10*3/uL 0.36-1.02 EOS x10^3 (test code = 711-2) 0.07 10*3/uL 0.06-0.53 BASO x10^3 (test code = 704-7) 0.01-0.09 Lab Interpretation (test code = 56612-0) Abnormal [facility] TaylorPOUT GLUCOSE (AUTOMATED)2024-04-06 12:39:51* Test Item Value Reference Range Interpretation Comme nts POCT GLU (test code = 6855865648) 87 mg/dL 70-110 Lab Interpretation (test cod e = 58104-1) Normal [facility] TaylorN-Terminal God-Zie6122-50-04 08:30:30* Test Item Value Reference Range Interpretation Comme nts NT-proBNP (test code = 52945-0) 3260 pg/mL <=125 H JACOB (test code = JACOB) Positive: Heart Failure Likely Lab Interpretation (test code = 77125-6) [facility]normal [facility] TaylorMagnesium2024-09-04 08:22:32* Test Item Value Reference Range Interpretation Comme nts MAGNESIUM (test code = 8545830429) 1.7 mg/dL 1.7-2.4 Lab Interpretation (test cod e = 70908-6) Normal [facility] TaylorBasi Metabolic Panel (NA, K, CL, CO2, GLUCOSE, BUN, CREATININE, CA)2024-04-06 08:22:27* Test Item Value Reference Range Interpretation Comme nts NA (test code = 9960242545) 139 mmol/L 135-145 K (test code = 7942660488) 3.4 mmol/L 3.5-5.0 L CL (test code = 7422407758) 99 mmol/L 98-108 CO2 TOTAL (test code = 2341662757) 31 mmol/L 23-31 AGAP (test code = 5459744083) 9 2-16 BUN (test code = 4372735871) 20 mg/dL 7-23 GLUCOSE (test code = 5828865873) 93 mg/dL 70-110 CREATININE (test code = 2160-0) 1.43 mg/dL 0.60-1.25 H CALCIUM (test code = 3530822489) 8.7 mg/dL 8.6-10.6 eGFR (test code = 33751-6) 57.2 mL/min/1.73m2 CKD-EPI eGFR (2020). Assuming creatinine has been stable day-to-day for at least three months, the eGFR indicates Category G3a (45 - 59 mL/min/1.73 m2) Lab Interpretation (test code = 11539-7) [facility]normal [facility] TaylorCb with Fwzh8722-09-05 08:06:05* Test Item Value Reference Range Interpretation [...] 31.7 g/dL 31.2-35.0 RDW-SD (test code = 43100-4) 51.8 fL 38.5-51.6 H RDW-CV (test code = 788-0) 17.1 % 12.1-15.4 H PLT (test code = 777-3) 190 150-328 MPV (test code = 34005-9) 10.7 fL 9.8-13.0 NRBC/100 WBC (test code = 3553238256) 0.6 0.0-10.0 NRBC x10^3 (test code = 5696364544) 0.03 See_Comment [Automated messa ge] The system which generated this result transmitted reference range: 10*3/?L. The reference range was not used to interpret this result as normal/abnormal. GRAN MAT (NEUT) % (test code = 770-8) 46.1 % IMM GRAN % (test code = 5497736317) 0.20 % LYMPH % (test code = 736-9) 38.9 % MONO % (test code = 5905-5) 12.7 % EOS % (test code = 713-8) 1.7 % BASO % (test code = 706-2) 0.4 % GRAN MAT x10^3(ANC) (test code = 5335466713) 2.13 10*3/uL 1.99-6.95 IMM GRAN x10^3 (test code = 8970125569) 0.00-0.06 LYMPH x10^3 (test code = 731-0) 1.80 10*3/uL 1.09-3.23 MONO x10^3 (test code = 742-7) 0.59 10*3/uL 0.36-1.02 EOS x10^3 (test code = 711-2) 0.08 10*3/uL 0.06-0.53 BASO x10^3 (test code = 704-7) 0.01-0.09 Lab Interpretation (test code = 96356-8) Abnormal [facility] GLUCOSE (AUTOMATED)2024-04-06 01:31:46* Test Item Value Reference Range Interpretation Comme nts POCT GLU (test code = 9436887899) 83 mg/dL 70-110 Lab Interpretation (test cod e = 24934-0) Normal [facility] GLUCOSE (AUTOMATED)2024-04-05 21:52:12* Test Item Value Reference Range Interpretation Comme nts POCT GLU (test code = 1589013541) 157 mg/dL 70-110 H Lab Interpretation (test cod e = 54584-0) Abnormal [facility] GLUCOSE (AUTOMATED)2024-04-05 17:16:47* Test Item Value Reference Range Interpretation Comme nts POCT GLU (test code = 5825849903) 134 mg/dL 70-110 H Lab Interpretation (test cod e = 61636-0) Abnormal [facility] GLUCOSE (AUTOMATED)2024-04-05 12:49:45* Test Item Value Reference Range Interpretation Comme nts POCT GLU (test code = 7288464158) 110 mg/dL 70-110 Lab Interpretation (test cod e = 61001-6) Normal [facility] GLUCOSE (AUTOMATED)2024-04-05 01:20:10* Test Item Value Reference Range Interpretation Comme nts POCT GLU (test code = 7643734971) 73 mg/dL 70-110 Lab Interpretation (test cod e = 89522-5) Normal [facility] GLUCOSE (AUTOMATED)2024-04-04 22:06:08* Test Item Value Reference Range Interpretation Comme nts POCT GLU (test code = 2577566697) 65 mg/dL 70-110 L Lab Interpretation (test cod e = 49308-1) [facility] [id number] 18:01:13EXAM: XR CHEST 1 VW COMPARISON: Chest [...] and soft tissues: No osseous abnormality is visualized.[facility] Critical [id number] 16:50:00Michelle Miranda MD ? ? 04/05/2024 ?1:53 [...] of separately billable procedures and treating other patients.[facility] [id number] 18:56:16 Ordered by an unspecified provider.[facility] - [id number] 16:18:17Ordered by an unspecified provider.[facility] Taylor[facility]ansthoracic echo (TTE)2023-07-31 02:35:11* Test Item Value Reference Range Interpretation Comme nts Height (test code = 5903441184) 74 in Weight (test code = 8446306158) 300 lbs Systolic BP (test code = 8866754664) 107 mmHg Diastolic BP (test code = 8302012208) 80 mmHg Heart Rate (test code = 1152289630) 90 bpm BSA (test code = 0718524640) 2.6 m2 LVIDD (test code = 9059794637) 6.10 cm Left Ventricular End Diastolic Volume by Teichholz Method (test code = 6619115) 184.5 mL IVS (test code = 2424544708) 1.55 cm Interventricular Septum Diastolic Thickness by 2D (test code = 3678071) 1.55 cm LVPWD (test code = 0453918284) 1.62 cm PW (test code = 7051550056) 1.62 cm 0.6-1.1 EF(Teich) (test code = 0939462236) 19.30 % LVIDS (test code = 8516870975) 5.50 cm Left Ventricular End Systolic Volume by Teichholz Method (test code = 2843114) 148.8 mL FS (test code = 8543619692) 9 % EF - 2D (test code = 74794209) 19.30 % LVOT diameter (test code = 7063948189) 2.22 cm LVOT area (test code = 7124296512) 3.90 cm2 TR Peak Sommer (test code = 6310797155) 237.4 cm/s Triscuspid Valve Regurgitation Peak Gradient (test code = 4654367357) 22.5 mmHg ACS (test code = 8824084422) 2.20 cm Ao root diam (test code = 9994979781) 3.80 cm Aortic root (test code = 1375523508) 3.8 cm Ao root annulus (test code = 6362580348) 3.8 cm LA size (test code = 0939257986) 4.4 cm E wave decelartion time (test code = 1325854788) 0.14 s MV Prop V (test code = 3242937517) 30.80 cm/s Tapse (test code = 9930330657) 1.63 cm LVOT stroke volume (test code = 7113749027) 63.10 cm3 LVOT peak sommer (test code = 8947631238) 101.7 cm/s LVOT mn grad (test code = 5852567189) 1.8 mmHg AV LVOT peak gradient (test code = 0414099295) 4.1 mmHg LVOT peak VTI (test code = 0873104743) 16.4 cm LV V1 mean (test code = 7132284730) 62.00 cm/s Aortic valve mean velocity (test code = 7741546630) 51.8 cm/s Ao peak sommer (test code = 4024502253) 81.0 cm/s Ao VTI (test code = 0656665007) 13.5 cm AV area by cont VTI (test code = 2894941190) 4.7 cm2 AV area peak sommer (test code = 8619517735) 4.8 cm2 Ao max PG (test code = 2055292084) 2.60 mm[Hg] AV peak gradient (test code = 9133787071) 2.6 mmHg AV valve area (test code = 1909012788) 4.70 cm2 AV mean gradient (test code = 7966227463) 1.26 mmHg Radiology Study observation (narrative) (test code = 75939-0) JACOB (test code = JACOB) ?Left?Ventricle: Left [...] mL of Lumason ultrasound enhancing agent used. [facility]. METABOLIC PANEL (77485)2023-03-28 04:43:53* Test Item Value Reference Range Interpretation Comme nts NA (test code = 1401470897) 138 mmol/L 135-145 K (test code = 7504791521) 4.2 mmol/L 3.5-5.0 CL (test code = 5040617744) 102 mmol/L 98-108 CO2 TOTAL (test code = 1555089012) 28 mmol/L 23-31 AGAP (test code = 2558985123) 8 2-16 BUN (test code = 2580229006) 41 mg/dL 7-23 H GLUCOSE (test code = 0131725175) 118 mg/dL 70-110 H CREATININE (test code = 1886454729) 1.93 mg/dL 0.60-1.25 H TOTAL BILI (test code = 1521911383) 0.6 mg/dL 0.1-1.1 CALCIUM (test code = 6974312512) 9.2 mg/dL 8.6-10.6 T PROTEIN (test code = 5373837744) 8.1 g/dL 6.3-8.2 ALBUMIN (test code = 3331416991) 4.2 g/dL 3.5-5.0 ALK PHOS (test code = 2430322504) 73 U/L 34-122 ALTv (test code = 1742-6) 26 U/L 5-50 AST(SGOT) (test code = 6083713028) 29 U/L 13-40 eGFR (test code = 9566562350) 36.2 mL/min/1.73m2 JACOB (test code = JACOB) [...] imaging tests). Lab Interpretation (test code = 26586-0) Abnormal [facility] WITH [id number] 04:31:08* Test Item Value Reference Range Interpretation Comme nts WBC (test code = 6690-2) 6.19 See_Comment [[employer]ated [employer]] The system which generated this result transmitted reference range: 4.20 - 10.70 10*3/?L. The reference range was not used to interpret this result as normal/abnormal. RBC (test code = 789-8) 5.44 See_Comment [[employer]] The system which generated this result transmitted [...] 32.3 g/dL 31.2-35.0 RDW-SD (test code = 49423-6) 47.8 fL 38.5-51.6 RDW-CV (test code = 788-0) 16.4 % 12.1-15.4 H PLT (test code = 777-3) 198 See_Comment [[employer]] The system which generated this result transmitted reference range: 150 - 328 10*3/?L. The reference range was not used to interpret this result as normal/abnormal. MPV (test code = 03275-6) 10.4 fL 9.8-13.0 NRBC/100 WBC (test code = 8226714016) 0.0 See_Comment [Automated me ssage] The system which generated this result transmitted reference range: 0.0 - 10.0 /100 WBCs. The reference range was not used to interpret this result as normal/abnormal. NRBC x10^3 (test code = 6268798654) See_Comment [Automated messa ge] The system which generated this result transmitted reference range: 10*3/?L. The reference range was not used to interpret this result as normal/abnormal. GRAN MAT (NEUT) % (test code = 770-8) 59.3 % IMM GRAN % (test code = 0421347666) 0.30 % LYMPH % (test code = 736-9) 27.8 % MONO % (test code = 5905-5) 10.5 % EOS % (test code = 713-8) 1.8 % BASO % (test code = 706-2) 0.3 % GRAN MAT x10^3(ANC) (test code = 2505643628) 3.67 10*3/uL 1.99-6.95 IMM GRAN x10^3 (test code = 8811232101) 0.00-0.06 LYMPH x10^3 (test code = 731-0) 1.72 10*3/uL 1.09-3.23 MONO x10^3 (test code = 742-7) 0.65 10*3/uL 0.36-1.02 EOS x10^3 (test code = 711-2) 0.11 10*3/uL 0.06-0.53 BASO x10^3 (test code = 704-7) 0.01-0.09 Lab Interpretation (test code = 74460-3) Abnormal [facility] GLUCOSE (AUTOMATED)2022-06-09 23:04:10* Test Item Value Reference Range Interpretation Comme nts POCT GLU (test code = 4660736940) 219 mg/dL 70-110 H Lab Interpretation (test cod e = 74384-9) Abnormal [facility] GLUCOSE (AUTOMATED)2022-06-09 18:07:54* Test Item Value Reference Range Interpretation Comme nts POCT GLU (test code = 1675677785) 123 mg/dL 70-110 H Lab Interpretation (test cod e = 04173-1) Abnormal [facility] GLUCOSE (AUTOMATED)2022-06-09 13:54:05* Test Item Value Reference Range Interpretation Comme nts POCT GLU (test code = 8802714381) 99 mg/dL 70-110 Lab Interpretation (test cod e = 53571-3) Normal [facility] GLUCOSE (AUTOMATED)2022-06-09 03:02:13* Test Item Value Reference Range Interpretation Comme nts POCT GLU (test code = 3956332400) 102 mg/dL 70-110 Lab Interpretation (test cod e = 43447-1) Normal [facility] GLUCOSE (AUTOMATED)2022-06-08 22:57:07* Test Item Value Reference Range Interpretation Comme nts POCT GLU (test code = 2234331386) 101 mg/dL 70-110 Lab Interpretation (test cod e = 24037-9) Normal [facility] GLUCOSE (AUTOMATED)2022-06-08 17:36:44* Test Item Value Reference Range Interpretation Comme nts POCT GLU (test code = 2041192206) 103 mg/dL 70-110 Lab Interpretation (test cod e = 09405-2) Normal [facility] GLUCOSE (AUTOMATED)2022-06-08 13:42:38* Test Item Value Reference Range Interpretation Comme nts POCT GLU (test code = 1841523911) 112 mg/dL 70-110 H Lab Interpretation (test cod e = 74821-7) Abnormal [facility] GLUCOSE (AUTOMATED)2022-06-08 01:27:29* Test Item Value Reference Range Interpretation Comme nts POCT GLU (test code = 9410389266) 117 mg/dL 70-110 H Lab Interpretation (test cod e = 16608-8) Abnormal [facility] GLUCOSE (AUTOMATED)2022-06-07 22:01:24* Test Item Value Reference Range Interpretation Comme nts POCT GLU (test code = 1609887901) 120 mg/dL 70-110 H Lab Interpretation (test cod e = 28497-0) Abnormal [facility] GLUCOSE (AUTOMATED)2022-06-07 16:41:29* Test Item Value Reference Range Interpretation Comme nts POCT GLU (test code = 4113172948) 115 mg/dL 70-110 H Lab Interpretation (test cod e = 21336-8) Abnormal [facility] GLUCOSE (AUTOMATED)2022-06-07 12:55:27* Test Item Value Reference Range Interpretation Comme nts POCT GLU (test code = 6752208165) 113 mg/dL 70-110 H Lab Interpretation (test cod e = 68029-8) Abnormal [facility] GLUCOSE (AUTOMATED)2022-06-06 21:33:33* Test Item Value Reference Range Interpretation Comme nts POCT GLU (test code = 2182262587) 108 mg/dL 70-110 Lab Interpretation (test cod e = 30086-5) Normal [facility] GLUCOSE (AUTOMATED)2022-06-06 17:00:26* Test Item Value Reference Range Interpretation Comme nts POCT GLU (test code = 5945420949) 129 mg/dL 70-110 H Lab Interpretation (test cod e = 94766-4) [facility]normal [facility] TaylorCORTISOL [id number] 16:05:22* Test Item Value Reference Range Interpretation Comme nts JOCELINE AM (test code = 8650569557) 13.2 ug/dL 4.5-23.0 JACOB (test code = JACOB) Biotin has been reported to cause a positive bias, interpret results relative to patient's use of biotin. Lab Interpretation (test code = 73272-9) Normal [facility] GLUCOSE (AUTOMATED)2022-06-06 13:07:51* Test Item Value Reference Range Interpretation Comme nts POCT GLU (test code = 7735512502) 113 mg/dL 70-110 H Lab Interpretation (test cod e = 08061-3) [facility]normal [facility] TaylorTHYROID STIMULATING [id number] 10:50:46 * Test Item Value Reference Range Interpretation Comme nts TSH (test code = 8256459035) See_Comment [Automated messa ge] The system which generated this result transmitted reference range: 0.45 - 4.70 mIU/L. The reference range was not used to interpret this result as normal/abnormal. Lab Interpretation (test code = 62627-0) Normal [facility] [id number] 10:36:44* Test Item Value Reference Range Interpretation Comme nts FREE T4 (test code = 3617682016) See_Comment [Automated messa ge] The system which generated this result transmitted reference range: 0.78 - 2.20 ng/dL:. The reference range was not used to interpret this result as normal/abnormal. Lab Interpretation (test code = 98942-4) Normal [facility] Metabolic Panel (NA, K, CL, CO2, GLUCOSE, BUN, CREATININE, CA)2022-06-06 10:21:23* Test Item Value Reference Range Interpretation Comme [facility] NA (test code = 8903527554) 137 mmol/L 135-145 K (test code = 4544892554) 3.9 mmol/L 3.5-5.0 CL (test code = 6919913914) 93 mmol/L 98-108 L CO2 TOTAL (test code = 0384782987) 31 mmol/L 23-31 AGAP (test code = 9034432283) 2-16 BUN (test code = 5520759591) 51 mg/dL 7-23 H GLUCOSE (test code = 1408727898) 115 mg/dL 70-110 H CREATININE (test code = 0398215467) 2.18 mg/dL 0.60-1.25 H CALCIUM (test code = 3574238231) 10.0 mg/dL 8.6-10.6 eGFR (test code = 3965142449) mL/min/1.73m2 JACOB (test code = JACOB) Association [...] imaging tests). Lab Interpretation (test code = 36573-0) [facility]normal [facility] TaylorGLYCOSYLATED HEMOGLOBIN (A1C)2022-06-06 09:42:08* Test Item Value Reference Range Interpretation Comme nts HGB A1C (test code = 4548-4) 6.5 % 4.0-5.7 H JACOB (test code = JACOB) Reference RangesNormal: <5.7%Prediabetes: 5.7 - 6.4%Diabetes: > 6.5% Lab Interpretation (test code = 50530-1) Abnormal [facility] TaylorCBC with [id number] 09:12:15* Test Item Value Reference Range Interpretation Comme nts WBC (test code = 6690-2) See_Comment [Automated [employer]] The system which generated this result transmitted reference range: 4.20 - 10.70 10*3/?L. The reference range was not used to interpret this result as normal/abnormal. RBC (test code = 789-8) See_Comment H [Automated [employer]] The system which generated this result transmitted [...] 32.6 g/dL 31.2-35.0 RDW-SD (test code = 38229-5) 42.9 fL 38.5-51.6 RDW-CV (test code = 788-0) 16.0 % 12.1-15.4 H PLT (test code = 777-3) See_Comment [Automated [employer]] The system which generated this result transmitted reference range: 150 - 328 10*3/?L. The reference range was not used to interpret this result as normal/abnormal. MPV (test code = 33620-8) 10.9 fL 9.8-13.0 NRBC/100 WBC (test code = 7131301670) See_Comment [Automated [employer] ssage] The system which generated this result transmitted reference range: 0.0 - 10.0 /100 WBCs. The reference range was not used to interpret this result as normal/abnormal. NRBC x10^3 (test code = 9742429026) See_Comment [Automated [employer]] The system which generated this result transmitted reference range: 10*3/?L. The reference range was not used to interpret this result as normal/abnormal. GRAN MAT (NEUT) % (test code = 770-8) 43.8 % IMM GRAN % (test code = 4510809670) 0.20 % LYMPH % (test code = 736-9) 40.2 % MONO % (test code = 5905-5) 14.4 % EOS % (test code = 713-8) 1.2 % BASO % (test code = 706-2) 0.2 % GRAN MAT x10^3(ANC) (test code = 9945594992) 2.26 10*3/uL 1.99-6.95 IMM GRAN x10^3 (test code = 2793598931) 0.00-0.06 LYMPH x10^3 (test code = 731-0) 2.07 10*3/uL 1.09-3.23 MONO x10^3 (test code = 742-7) 0.74 10*3/uL 0.36-1.02 EOS x10^3 (test code = 711-2) 0.06 10*3/uL 0.06-0.53 BASO x10^3 (test code = 704-7) 0.01-0.09 Lab Interpretation (test code = 14253-1) [facility]normal [facility] TaylorTROPONIN [id number] 22:42:16* Test Item Value Reference Range Interpretation Comments TROPONIN I (test code = 0335198107) 0.048 ng/mL See_Comment H [Automated message] The [...] of biotin. Lab Interpretation (test code = 22625-3) Abnormal [facility] TaylorCOMP. METABOLIC PANEL (17487)2022-06-05 21:40:24* Test Item Value Reference Range Interpretation Comme nts NA (test code = 8053792804) 136 mmol/L 135-145 K (test code = 5397422960) 4.2 mmol/L 3.5-5.0 CL (test code = 4668269218) 93 mmol/L 98-108 L CO2 TOTAL (test code = 1212127949) 29 mmol/L 23-31 AGAP (test code = 6394755485) 2-16 BUN (test code = 6605159761) 45 mg/dL 7-23 H GLUCOSE (test code = 5099407033) 113 mg/dL 70-110 H CREATININE (test code = 7594093764) 2.31 mg/dL 0.60-1.25 H TOTAL BILI (test code = 0452572145) 1.7 mg/dL 0.1-1.1 H CALCIUM (test code = 7117471650) 9.9 mg/dL 8.6-10.6 T PROTEIN (test code = 7024732006) 8.8 g/dL 6.3-8.2 H ALBUMIN (test code = 5425587847) 4.8 g/dL 3.5-5.0 ALK PHOS (test code = 6734869098) 88 U/L 34-122 ALTv (test code = 1742-6) 21 U/L 5-50 AST(SGOT) (test code = 1310820324) 25 U/L 13-40 eGFR (test code = 3050377169) mL/min/1.73m2 JACOB (test code = JACOB) Association [...] imaging tests). Lab Interpretation (test code = 78687-8) Abnormal [facility], [id number] 21:39:03* Test Item Value Reference Range Interpretation Comme nts AMMONIA (test code = 1013784542) 13 umol/L 9-33 Lab Interpretation (test cod e = 20194-8) Normal [facility] TaylorPROTHROMBIN TIME / [id number] 21:38:01* Test Item Value Reference Range Interpretation [...] the indications. Lab Interpretation (test code = 75308-2) Normal [facility] TaylorCBC WITH [id number] 21:34:23* Test Item Value Reference Range Interpretation [...] 32.4 g/dL 31.2-35.0 RDW-SD (test code = 37398-6) 43.6 fL 38.5-51.6 RDW-CV (test code = 788-0) 17.4 % 12.1-15.4 H PLT (test code = 777-3) See_Comment [Automated messa ge] The system which generated this result transmitted reference range: 150 - 328 10*3/?L. The reference range was not used to interpret this result as normal/abnormal. MPV (test code = 09503-0) 10.3 fL 9.8-13.0 NRBC/100 WBC (test code = 3897425097) See_Comment [Automated me ssage] The system which generated this result transmitted reference range: 0.0 - 10.0 /100 WBCs. The reference range was not used to interpret this result as normal/abnormal. NRBC x10^3 (test code = 4799152541) See_Comment [Automated messa ge] The system which generated this result transmitted reference range: 10*3/?L. The reference range was not used to interpret this result as normal/abnormal. GRAN MAT (NEUT) % (test code = 770-8) 46.9 % IMM GRAN % (test code = 0308800020) 0.20 % LYMPH % (test code = 736-9) 38.8 % MONO % (test code = 5905-5) 12.9 % EOS % (test code = 713-8) 0.9 % BASO % (test code = 706-2) 0.3 % GRAN MAT x10^3(ANC) (test code = 4405868717) 3.01 10*3/uL 1.99-6.95 IMM GRAN x10^3 (test code = 0361818007) 0.00-0.06 LYMPH x10^3 (test code = 731-0) 2.49 10*3/uL 1.09-3.23 MONO x10^3 (test code = 742-7) 0.83 10*3/uL 0.36-1.02 EOS x10^3 (test code = 711-2) 0.06 10*3/uL 0.06-0.53 BASO x10^3 (test code = 704-7) 0.01-0.09 Lab Interpretation (test code = 85913-1) Abnormal [facility] GLUCOSE (AUTOMATED)2022-06-03 13:23:16* Test Item Value Reference Range Interpretation Comme nts POCT GLU (test code = 0876031706) 113 mg/dL 70-110 H Lab Interpretation (test cod e = 55914-0) Abnormal [facility] GLUCOSE (AUTOMATED)2022-06-02 22:20:49* Test Item Value Reference Range Interpretation Comme nts POCT GLU (test code = 7918616684) 105 mg/dL 70-110 Lab Interpretation (test cod e = 56880-5) Normal [facility] GLUCOSE (AUTOMATED)2022-06-02 17:14:01* Test Item Value Reference Range Interpretation Comme nts POCT GLU (test code = 1616391372) 101 mg/dL 70-110 Lab Interpretation (test cod e = 50661-2) Normal [facility] GLUCOSE (AUTOMATED)2022-06-02 13:06:11* Test Item Value Reference Range Interpretation Comme nts POCT GLU (test code = 6215126110) 91 mg/dL 70-110 Lab Interpretation (test cod e = 12591-4) Normal [facility] GLUCOSE (AUTOMATED)2022-06-02 09:46:37* Test Item Value Reference Range Interpretation Comme nts POCT GLU (test code = 1249161893) 88 mg/dL 70-110 Lab Interpretation (test cod e = 72567-6) Normal [facility] GLUCOSE (AUTOMATED)2022-06-02 01:58:12* Test Item Value Reference Range Interpretation Comme nts POCT GLU (test code = 1828129656) 97 mg/dL 70-110 Lab Interpretation (test cod e = 35699-9) Normal [facility] GLUCOSE (AUTOMATED)2022-06-01 21:49:40* Test Item Value Reference Range Interpretation Comme nts POCT GLU (test code = 7694883552) 83 mg/dL 70-110 Lab Interpretation (test cod e = 19673-1) Normal [facility] GLUCOSE (AUTOMATED)2022-05-15 16:25:57* Test Item Value Reference Range Interpretation Comme nts POCT GLU (test code = 6671239309) 136 mg/dL 70-110 H Notified Provide r Lab Interpretation (test code = 50666-1) Abnormal [facility] GLUCOSE (AUTOMATED)2022-05-15 13:11:35* Test Item Value Reference Range Interpretation Comme nts POCT GLU (test code = 0985743733) 108 mg/dL 70-110 Notified Provide r Lab Interpretation (test code = 33552-9) [facility] (NA, K, CL, CO2, GLUCOSE, BUN, CREATININE, CA)2022-05-15 10:31:36* Test Item Value Reference Range Interpretation Comme nts NA (test code = 1215463635) 138 mmol/L 135-145 K (test code = 4928202006) 4.0 mmol/L 3.5-5 CL (test code = 1558181327) 100 mmol/L 98-108 CO2 TOTAL (test code = 1881947780) 28 mmol/L 23-31 AGAP (test code = 4342561833) 2-16 BUN (test code = 3121484455) 43 mg/dL 7-23 H GLUCOSE (test code = 7280467861) 120 mg/dL 70-110 H CREATININE (test code = 2200201981) 1.52 mg/dL 0.6-1.25 H CALCIUM (test code = 5431935972) 8.6 mg/dL 8.6-10.6 eGFR (test code = 9269392999) mL/min/1.73m2 JACOB (test code = JACOB) Association [...] imaging tests). Lab Interpretation (test code = 55978-3) [facility]normal [facility] TaylorMAGNESIUM2022-10-13 10:31:36* Test Item Value Reference Range Interpretation Comme nts MAGNESIUM (test code = 6507761730) 2.4 mg/dL 1.7-2.4 Lab Interpretation (test cod e = 41211-7) Normal [facility] TaylorCB WITH [id number] 10:08:36* Test Item Value Reference Range Interpretation Comme nts WBC (test code = 6690-2) See_Comment [Automated [employer]] The system which generated this result transmitted reference range: 4.20 - 10.70 10*3/?L. The reference range was not used to interpret this result as normal/abnormal. RBC (test code = 789-8) See_Comment [Automated [employer]] The system which generated this result [...] 32.1 g/dL 31.2-35 RDW-SD (test code = 30706-0) 45.1 fL 38.5-51.6 RDW-CV (test code = 788-0) 15.9 % 12.1-15.4 H PLT (test code = 777-3) See_Comment [Automated [employer]] The system which generated this result transmitted reference range: 150 - 328 10*3/?L. The reference range was not used to interpret this result as normal/abnormal. MPV (test code = 42273-3) 10.6 fL 9.8-13 NRBC/100 WBC (test code = 2494295748) See_Comment [Automated me ssage] The system which generated this result transmitted reference range: 0.0 - 10.0 /100 WBCs. The reference range was not used to interpret this result as normal/abnormal. NRBC x10^3 (test code = 9215141789) See_Comment [Automated messa ge] The system which generated this result transmitted reference range: 10*3/?L. The reference range was not used to interpret this result as normal/abnormal. GRAN MAT (NEUT) % (test code = 770-8) 65.9 % IMM GRAN % (test code = 5096225241) 0.30 % LYMPH % (test code = 736-9) 23.2 % MONO % (test code = 5905-5) 10.1 % EOS % (test code = 713-8) 0.3 % BASO % (test code = 706-2) 0.2 % GRAN MAT x10^3(ANC) (test code = 9844461959) 5.68 10*3/uL 1.99-6.95 IMM GRAN x10^3 (test code = 4904136838) 0.03 10*3/uL 0-0.06 LYMPH x10^3 (test code = 731-0) 2.00 10*3/uL 1.09-3.23 MONO x10^3 (test code = 742-7) 0.87 10*3/uL 0.36-1.02 EOS x10^3 (test code = 711-2) 0.03 10*3/uL 0.06-0.53 L BASO x10^3 (test code = 704-7) 0.01-0.09 Lab Interpretation (test code = 19422-4) Abnormal [facility] GLUCOSE (AUTOMATED)2022-05-15 01:35:43* Test Item Value Reference Range Interpretation Comme [facility] POCT GLU (test code = 1975410627) 121 mg/dL 70-110 H Lab Interpretation (test cod e = 23346-2) Abnormal [facility] GLUCOSE (AUTOMATED)2022-05-14 21:31:02* Test Item Value Reference Range Interpretation Comme nts POCT GLU (test code = 4098204710) 134 mg/dL 70-110 H Lab Interpretation (test cod e = 19932-0) Abnormal [facility] GLUCOSE (AUTOMATED)2022-05-14 13:18:03* Test Item Value Reference Range Interpretation Comme nts POCT GLU (test code = 1072028532) 134 mg/dL 70-110 H Lab Interpretation (test cod e = 05286-4) Abnormal [facility] GLUCOSE (AUTOMATED)2022-05-14 00:37:27* Test Item Value Reference Range Interpretation Comme nts POCT GLU (test code = 0618355333) 138 mg/dL 70-110 H Lab Interpretation (test cod e = 86853-6) [facility] TayloraPTT (for use with Heparin Drip)2022-05-13 21:44:37* Test Item Value Reference Range Interpretation Comme nts APTT Patient (test code = 3173-2) See_Comment H [Automated [employer]] The system which generated this result transmitted reference range: 26 - 36 Seconds. The reference range was not used to interpret this result as normal/abnormal. Lab Interpretation (test code = 93873-7) Abnormal [facility] GLUCOSE (AUTOMATED)2022-05-13 21:23:02* Test Item Value Reference Range Interpretation Comme nts POCT GLU (test code = 7163632043) 129 mg/dL 70-110 H Lab Interpretation (test cod e = 68528-2) Abnormal [facility] GLUCOSE (AUTOMATED)2022-05-13 20:36:50* Test Item Value Reference Range Interpretation Comme nts POCT GLU (test code = 1756381862) 107 mg/dL 70-110 Lab Interpretation (test cod e = 99696-9) Normal [facility] GLUCOSE (AUTOMATED)2022-05-13 20:35:27* Test Item Value Reference Range Interpretation Comme nts POCT GLU (test code = 3008429240) 145 mg/dL 70-110 H Lab Interpretation (test cod e = 04769-4) [facility] 19:45:15* Test Item Value Reference Range Interpretation Comme nts LVIDD (test code = 3443651586) 6.10 cm Interventricular Septum Diastolic Thickness by 2D (test code = 0967201) 1.71 cm PW (test code = 9744909632) 1.64 cm 0.6-1.1 LVIDS (test code = 3894972594) 5.50 cm LA size (test code = 6158650729) 3.8 cm LVPWD (test code = 3151863923) 1.64 cm AV LVOT peak gradient (test code = 3167303754) mmHg E wave decelartion time (test code = 9067867123) 0.10 s LVOT diameter (test code = 6669864889) 2.5 cm LVOT peak VTI (test code = 6225745470) 10.5 cm LVOT stroke volume (test code = 4003524811) 52.60 cm3 Triscuspid Valve Regurgitation Peak Gradient (test code = 9584659351) mmHg MV Peak E Sommer (test code = 7540810798) 98.1 cm/s IVS (test code = 4595312778) 1.71 cm Aortic root (test code = 6627846366) 3.7 cm Tapse (test code = 4965449593) 1.52 cm EF - 2D (test code = 06350427) 21.20 % Left Ventricular End Diastolic Volume by Teichholz Method (test code = 1009906) 189.2 mL Left Ventricular End Systolic Volume by Teichholz Method (test code = 5453944) 149.1 mL Ao root annulus (test code = 5049341913) 3.7 cm FS (test code = 3458667055) 10 % LVOT mn grad (test code = 6631374511) mmHg TR Peak Sommer (test code = 0342899084) 283.7 cm/s MV E/e' septal (test code = 4563496568) 4.5 cm/s LVOT area (test code = 1635446686) 5.00 cm2 LVOT peak sommer (test code = 1739593408) 78.8 cm/s BSA (test code = 6554466943) 2.7 m2 Ao root diam (test code = 2231173119) 3.70 cm EF(Teich) (test code = 9305146387) 21.20 % LV V1 mean (test code = 4427086889) 52.50 cm/s MV Prop V (test code = 2802487000) 28.90 cm/s Height (test code = 4861238530) in Weight (test code = 6224362662) lbs Systolic BP (test code = 1601938847) mmHg Diastolic BP (test code = 6805011649) mmHg Heart Rate (test code = 5217164953) bpm LV Diastolic Volume (BP) (test code = 7620878613) 285.5 mL A2C EF (test code = 3730026556) 12.80 % EF(sp2-el) (test code = 9972009519) 12.90 % SV(MOD-sp2) (test code = 6554897812) 40.90 mL A4C EF (test code = 2597225048) 16.30 % EF(MOD-bp) (test code = 6728162795) 16.80 % EF(sp4-el) (test code = 5974946755) 20.60 % LV Systolic Volume (BP) (test code = 8591741679) 237.7 mL SV(MOD-bp) (test code = 6926317084) 47.90 mL SV(MOD-sp4) (test code = 0792061361) 39.70 mL SV(sp4-el) (test code = 6510394109) 55.90 mL EF (test code = 1929435130) Left Ventricular Stroke Volume by 2-D Biplane-MOD (test code = 4777940) 47.9 mL LV Diastolic Volume Index (BP) (test code = 6413822914) 105.7 mL/m2 LV Systolic Volume Index (BP) (test code = 3259636961) 88.0 mL/m2 Radiology Study observation (narrative) (test code = 16947-0) JACOB (test code = JACOB) ?Left?Ventricle: Left [...] enhancing agent used. Patient exhibited sinus rhythm. [facility] [id number] 15:40:52* Test Item Value Reference Range Interpretation Comme nts APTT Patient (test code = 3173-2) See_Comment H [Automated [employer]] The system which generated this result transmitted reference range: 26 - 36 Seconds. The reference range was not used to interpret this result as normal/abnormal. Lab Interpretation (test code = 38846-5) Abnormal [facility] GLUCOSE (AUTOMATED)2022-05-13 02:37:38* Test Item Value Reference Range Interpretation Comme nts POCT GLU (test code = 0194975309) 104 mg/dL 70-110 Lab Interpretation (test cod e = 56988-5) Normal [facility] [id number] 23:05:27* Test Item Value Reference Range Interpretation Comments TROPONIN I (test code = 8250852028) 1.060 ng/mL See_Comment H [Automated message] The [...] of biotin. Lab Interpretation (test code = 56167-8) Abnormal [facility] GLUCOSE (AUTOMATED)2022-05-12 20:15:15* Test Item Value Reference Range Interpretation Comme nts POCT GLU (test code = 3131612685) 105 mg/dL 70-110 Notified Provide r Lab Interpretation (test code = 86772-5) Normal [facility] [id number] 20:09:56* Test Item Value Reference Range Interpretation Comments TROPONIN I (test code = 0456732324) 1.100 ng/mL See_Comment H [Automated message] The [...] of biotin. Lab Interpretation (test code = 93791-4) Abnormal [facility] GLUCOSE (AUTOMATED)2022-05-12 17:17:06* Test Item Value Reference Range Interpretation Comme nts POCT GLU (test code = 3142985096) 111 mg/dL 70-110 H Notified Provide r Lab Interpretation (test code = 25196-0) Abnormal [facility] GLUCOSE (AUTOMATED)2022-05-12 13:08:44* Test Item Value Reference Range Interpretation Comme nts POCT GLU (test code = 1434653222) 97 mg/dL 70-110 Lab Interpretation (test cod e = 88338-6) Normal [facility] GLUCOSE (AUTOMATED)2022-05-12 01:01:49* Test Item Value Reference Range Interpretation Comme nts POCT GLU (test code = 5301051908) 92 mg/dL 70-110 Lab Interpretation (test cod e = 94826-2) [facility] [id number] 22:46:37* Test Item Value Reference Range Interpretation Comments TROPONIN I (test code = 2007390561) 0.046 ng/mL See_Comment H [Automated message] The [...] of biotin. Lab Interpretation (test code = 82450-3) Abnormal [facility] GLUCOSE (AUTOMATED)2022-05-11 21:13:58* Test Item Value Reference Range Interpretation Comme [facility] POCT GLU (test code = 4226402089) 106 mg/dL 70-110 Notified Provide r Lab Interpretation (test code = 69730-0) Normal [facility] GLUCOSE (AUTOMATED)2022-05-11 18:00:21* Test Item Value Reference Range Interpretation Comme [facility] POCT GLU (test code = 3530310958) 102 mg/dL 70-110 Notified Provide r Lab Interpretation (test code = 85048-1) Normal [facility]TR[facility] [id number] 17:18:39* Test Item Value Reference Range Interpretation Comments TROPONIN I (test code = 0723194704) 0.051 ng/mL See_Comment H [Automated message] The [...] of biotin. Lab Interpretation (test code = 54245-8) [facility]normal [facility] TaylorProthrombin Time (PT) / [id number] 17:09:02 * Test Item Value Reference Range Interpretation Comme [facility] PROTIME PATIENT (test code = 5964-2) See_Comment H [Automated [employer]] The system which generated this result transmitted reference range: 10.1 - 12.6 Seconds. The reference range was not used to interpret this result as normal/abnormal. INR (test code = 6301-6) Normal INR <1.1; Warfarin Therapeutic range 2.0 to 3.0 or 2.5 to 3.5, depending upon the indications. Lab Interpretation (test code = 36911-0) [facility]normal [facility] TayloraPTT2022-10-09 17:09:02* Test Item Value Reference Range Interpretation Comme [facility] APTT Patient (test code = 3173-2) See_Comment [Automated [employer]] The system which generated this result transmitted reference range: 26 - 36 Seconds. The reference range was not used to interpret this result as normal/abnormal. Lab Interpretation (test code = 89208-1) Normal [facility] TaylorLavaic Acid Whole [id number] 17:00:23* Test Item Value Reference Range Interpretation Comme [facility] LACTIC ACID (test code = 6522356924) 1.15 mmol/L 0.5-2.2 Lab Interpretation (test cod e = 51749-3) Normal [facility] TaylorPOUT GLUCOSE (AUTOMATED)2022-05-11 14:55:35* Test Item Value Reference Range Interpretation Comme [facility] POCT GLU (test code = 6895625649) 99 mg/dL 70-110 Notified Provide r Lab Interpretation (test code = 54825-9) Normal [facility] TaylorTroponin [id number] 03:41:52* Test Item Value Reference Range Interpretation Comments TROPONIN I (test code = 5783505579) 0.054 ng/mL See_Comment H [Automated message] The [...] of biotin. Lab Interpretation (test code = 87832-3) [facility]normal [facility] TaylorGlycosylated Hemoglobin (A1C)2022-05-06 01:58:11* Test Item Value Reference Range Interpretation Comme nts HGB A1C (test code = 4548-4) 6.5 % 4-5.7 H JACOB (test code = JACOB) Reference RangesNormal: <5.7%Prediabetes: 5.7 - 6.4%Diabetes: > 6.5% Lab Interpretation (test code = 45628-9) [facility]normal [facility] TaylorThyroid Stimulating Hormone (TSH)2022-05-06 01:48:20* Test Item Value Reference Range Interpretation Comme nts TSH (test code = 7273509037) See_Comment Biotin has been reported to cause a negative bias, interpret results relative to patient's use of biotin. [Automated message] The system which generated this result transmitted reference range: 0.45 - 4.70 mIU/L. The reference range was not used to interpret this result as normal/abnormal. Lab Interpretation (test code = 55097-8) Normal [facility] TaylorN-TERMINAL [id number] 20:51:47* Test Item Value Reference Range Interpretation Comme nts NT-proBNP (test code = 6969939923) 4320 pg/mL See_Comment H [Automated message] The system which generated this result transmitted reference range: <=125. The reference range was not used to interpret this result as normal/abnormal. JACOB (test code = JACOB) Biotin has been reported to cause a negative bias, interpret results relative to patient's use of biotin. Lab Interpretation (test code = 97883-8) [facility]normal [facility] TaylorTROPONIN [id number] 20:29:07* Test Item Value Reference Range Interpretation Comments TROPONIN I (test code = 4234940464) 0.058 ng/mL See_Comment H [Automated message] The [...] of biotin. Lab Interpretation (test code = 67269-6) [facility]normal [facility] TaylorMAGNESIUM2022-10-03 20:17:44* Test Item Value Reference Range Interpretation Comme nts MAGNESIUM (test code = 5525364188) 1.8 mg/dL 1.7-2.4 Lab Interpretation (test cod e = 12994-7) Normal [facility] TaylorCOMP. METABOLIC PANEL (42884)2022-05-05 20:17:24* Test Item Value Reference Range Interpretation Comme nts NA (test code = 3742802365) 142 mmol/L 135-145 K (test code = 0547462420) 4.1 mmol/L 3.5-5 CL (test code = 0760013785) 108 mmol/L 98-108 CO2 TOTAL (test code = 8388390316) 22 mmol/L 23-31 L AGAP (test code = 5054470940) 2-16 BUN (test code = 2794133994) 22 mg/dL 7-23 GLUCOSE (test code = 8586831812) 107 mg/dL 70-110 CREATININE (test code = 1251373962) 1.30 mg/dL 0.6-1.25 H TOTAL BILI (test code = 8370875701) 0.6 mg/dL 0.1-1.1 CALCIUM (test code = 9378841948) 9.3 mg/dL 8.6-10.6 T PROTEIN (test code = 6003095345) 7.3 g/dL 6.3-8.2 ALBUMIN (test code = 1071451594) 4.0 g/dL 3.5-5 ALK PHOS (test code = 6226892125) 74 U/L 34-122 ALTv (test code = 1742-6) 20 U/L 5-50 AST(SGOT) (test code = 3588303527) 28 U/L 13-40 eGFR (test code = 9968752128) mL/min/1.73m2 JACOB (test code = JACOB) Association [...] imaging tests). Lab Interpretation (test code = 78876-8) Abnormal [facility] WITH [id number] 20:17:03* Test Item Value Reference Range Interpretation Comme nts WBC (test code = 6690-2) See_Comment [[employer]ated [employer]] The system which generated this result transmitted reference range: 4.20 - 10.70 10*3/?L. The reference range was not used to interpret this result as normal/abnormal. RBC (test code = 789-8) See_Comment [[employer]ated [employer]] The system which generated this result transmitted [...] 31.9 g/dL 31.2-35 RDW-SD (test code = 68278-9) 44.8 fL 38.5-51.6 RDW-CV (test code = 788-0) 15.5 % 12.1-15.4 H PLT (test code = 777-3) See_Comment [Automated messa ge] The system which generated this result transmitted reference range: 150 - 328 10*3/?L. The reference range was not used to interpret this result as normal/abnormal. MPV (test code = 07409-3) 10.7 fL 9.8-13 NRBC/100 WBC (test code = 8719116547) See_Comment [Automated [employer]ren[employer] ssage] The system which generated this result transmitted reference range: 0.0 - 10.0 /100 WBCs. The reference range was not used to interpret this result as normal/abnormal. NRBC x10^3 (test code = 1388266062) See_Comment [Automated messa ge] The system which generated this result transmitted reference range: 10*3/?L. The reference range was not used to interpret this result as normal/abnormal. GRAN MAT (NEUT) % (test code = 770-8) 52.8 % IMM GRAN % (test code = 1863198937) 0.20 % LYMPH % (test code = 736-9) 33.6 % MONO % (test code = 5905-5) 11.4 % EOS % (test code = 713-8) 1.6 % BASO % (test code = 706-2) 0.4 % GRAN MAT x10^3(ANC) (test code = 3469295765) 2.95 10*3/uL 1.99-6.95 IMM GRAN x10^3 (test code = 0154448401) 0-0.06 LYMPH x10^3 (test code = 731-0) 1.88 10*3/uL 1.09-3.23 MONO x10^3 (test code = 742-7) 0.64 10*3/uL 0.36-1.02 EOS x10^3 (test code = 711-2) 0.09 10*3/uL 0.06-0.53 BASO x10^3 (test code = 704-7) 0.01-0.09 Lab Interpretation (test code = 74798-2) Abnormal [facility] TaylorN-TERMINAL [id number] 12:18:51* Test Item Value Reference Range Interpretation Comme nts NT-proBNP (test code = 7943806352) 1400 pg/mL See_Comment H [Automated message] The system which generated this result transmitted reference range: <=125. The reference range was not used to interpret this result as normal/abnormal. JACOB (test code = JACOB) Biotin has been reported to cause a negative bias, interpret results relative to patient's use of biotin. Lab Interpretation (test code = 03117-1) Abnormal [facility] TaylorMagnesium [id number] 12:13:54* Test Item Value Reference Range Interpretation Comme nts MAGNESIUM (test code = 8240361703) 1.9 mg/dL 1.7-2.4 Lab Interpretation (test cod e = 45556-4) [facility] (NA, K, CL, CO2, GLUCOSE, BUN, CREATININE, CA)2022-04-30 12:13:34* Test Item Value Reference Range Interpretation Comme nts NA (test code = 7033879583) 138 mmol/L 135-145 K (test code = 2579149622) 4.2 mmol/L 3.5-5 CL (test code = 8305616156) 104 mmol/L 98-108 CO2 TOTAL (test code = 3213750387) 26 mmol/L 23-31 AGAP (test code = 5692425361) 2-16 BUN (test code = 2846409148) 19 mg/dL 7-23 GLUCOSE (test code = 6868406837) 113 mg/dL 70-110 H CREATININE (test code = 9908215545) 1.28 mg/dL 0.6-1.25 H CALCIUM (test code = 7242617607) 8.9 mg/dL 8.6-10.6 eGFR (test code = 1023456262) mL/min/1.73m2 JACOB (test code = JACOB) Association [...] imaging tests). Lab Interpretation (test code = 75792-4) Abnormal [facility] GLUCOSE (AUTOMATED)2022-04-30 01:21:02* Test Item Value Reference Range Interpretation Comme nts POCT GLU (test code = 5463696258) 129 mg/dL 70-110 H Lab Interpretation (test cod e = 11035-2) Abnormal [facility] GLUCOSE (AUTOMATED)2022-04-29 22:32:44* Test Item Value Reference Range Interpretation Comme nts POCT GLU (test code = 7095392735) 86 mg/dL 70-110 Lab Interpretation (test cod e = 20258-8) Normal [facility]. METABOLIC PANEL (91444)2022-04-29 17:43:38* Test Item Value Reference Range Interpretation Comme nts NA (test code = 8580268918) 137 mmol/L 135-145 K (test code = 1534051877) 3.9 mmol/L 3.5-5 CL (test code = 5477433226) 106 mmol/L 98-108 CO2 TOTAL (test code = 0342408099) 22 mmol/L 23-31 L AGAP (test code = 6997132752) 2-16 BUN (test code = 9339256503) 17 mg/dL 7-23 GLUCOSE (test code = 4407437929) 103 mg/dL 70-110 CREATININE (test code = 4269497919) 1.18 mg/dL 0.6-1.25 TOTAL BILI (test code = 0994395973) 0.8 mg/dL 0.1-1.1 CALCIUM (test code = 5704221568) 8.9 mg/dL 8.6-10.6 T PROTEIN (test code = 5554059476) 6.9 g/dL 6.3-8.2 ALBUMIN (test code = 6977941843) 3.8 g/dL 3.5-5 ALK PHOS (test code = 7943565622) 65 U/L 34-122 ALTv (test code = 1742-6) 18 U/L 5-50 AST(SGOT) (test code = 7291772442) 25 U/L 13-40 eGFR (test code = 5325874550) mL/min/1.73m2 JACOB (test code = JACOB) Association [...] imaging tests). Lab Interpretation (test code = 56592-1) Abnormal [facility] TaylorTROPONIN [id number] 17:02:13* Test Item Value Reference Range Interpretation Comments TROPONIN I (test code = 0128384202) 0.045 ng/mL See_Comment H [Automated message] The [...] of biotin. Lab Interpretation (test code = 37880-5) [facility]normal [facility] Taylor[facility] [id number] 17:00:29* Test Item Value Reference Range Interpretation Comme nts NT-proBNP (test code = 6932811286) 1770 pg/mL See_Comment H [Automated message] The system which generated this result transmitted reference range: <=125. The reference range was not used to interpret this result as normal/abnormal. JACOB (test code = JACOB) Biotin has been reported to cause a negative bias, interpret results relative to patient's use of biotin. Lab Interpretation (test code = 58763-7) Abnormal [facility] TaylorPROTHROMBIN TIME / [id number] 15:56:43* Test Item Value Reference Range Interpretation [...] the indications. Lab Interpretation (test code = 78674-0) Normal [facility] TaylorCB WITH [id number] 15:48:01* Test Item Value Reference Range Interpretation [...] 31.2 g/dL 31.2-35 RDW-SD (test code = 73688-9) 45.0 fL 38.5-51.6 RDW-CV (test code = 788-0) 15.5 % 12.1-15.4 H PLT (test code = 777-3) See_Comment [Automated messa ge] The system which generated this result transmitted reference range: 150 - 328 10*3/?L. The reference range was not used to interpret this result as normal/abnormal. MPV (test code = 64129-6) 11.6 fL 9.8-13 NRBC/100 WBC (test code = 2598010107) See_Comment [Automated me ssage] The system which generated this result transmitted reference range: 0.0 - 10.0 /100 WBCs. The reference range was not used to interpret this result as normal/abnormal. NRBC x10^3 (test code = 4085690564) See_Comment [Automated messa ge] The system which generated this result transmitted reference range: 10*3/?L. The reference range was not used to interpret this result as normal/abnormal. GRAN MAT (NEUT) % (test code = 770-8) 40.0 % IMM GRAN % (test code = 2959413486) 0.20 % LYMPH % (test code = 736-9) 47.3 % MONO % (test code = 5905-5) 10.4 % EOS % (test code = 713-8) 1.8 % BASO % (test code = 706-2) 0.3 % GRAN MAT x10^3(ANC) (test code = 4119215893) 2.39 10*3/uL 1.99-6.95 IMM GRAN x10^3 (test code = 9895150166) 0-0.06 LYMPH x10^3 (test code = 731-0) 2.83 10*3/uL 1.09-3.23 MONO x10^3 (test code = 742-7) 0.62 10*3/uL 0.36-1.02 EOS x10^3 (test code = 711-2) 0.11 10*3/uL 0.06-0.53 BASO x10^3 (test code = 704-7) 0.01-0.09 Lab Interpretation (test code = 12196-3) Abnormal [facility] [id number] 12:23:05* Test Item Value Reference Range Interpretation Comments TROPONIN I (test code = 1011864791) 0.037 ng/mL See_Comment H [Automated message] The [...] of biotin. Lab Interpretation (test code = 58062-8) Abnormal [facility] METABOLIC PANEL (NA, K, CL, CO2, GLUCOSE, BUN, CREATININE, CA)2022-04-23 11:13:03* Test Item Value Reference Range Interpretation Comme nts NA (test code = 0170183971) 140 mmol/L 135-145 K (test code = 6995403064) 3.9 mmol/L 3.5-5 CL (test code = 2647154367) 105 mmol/L 98-108 CO2 TOTAL (test code = 1605712447) 28 mmol/L 23-31 AGAP (test code = 6571864089) 2-16 BUN (test code = 5086065506) 23 mg/dL 7-23 GLUCOSE (test code = 6342544646) 106 mg/dL 70-110 CREATININE (test code = 6776553463) 1.37 mg/dL 0.6-1.25 H CALCIUM (test code = 5670715997) 8.8 mg/dL 8.6-10.6 eGFR (test code = 9120618160) mL/min/1.73m2 JACOB (test code = JACOB) Association [...] imaging tests). Lab Interpretation (test code = 15866-4) [facility]normal [facility] TaylorMAGNESIUM2022-09-21 10:33:54* Test Item Value Reference Range Interpretation Comme nts MAGNESIUM (test code = 5550410507) 1.6 mg/dL 1.7-2.4 L Lab Interpretation (test cod e = 62362-5) Abnormal [facility] WITH [id number] 09:54:13* Test Item Value Reference Range Interpretation Comme nts WBC (test code = 6690-2) See_Comment [[employer]ated [employer]] The system which generated this result transmitted reference range: 4.20 - 10.70 10*3/?L. The reference range was not used to interpret this result as normal/abnormal. RBC (test code = 789-8) See_Comment [[employer]ated [employer]] The system which generated this result transmitted [...] 31.4 g/dL 31.2-35 RDW-SD (test code = 97478-2) 45.6 fL 38.5-51.6 RDW-CV (test code = 788-0) 15.8 % 12.1-15.4 H PLT (test code = 777-3) See_Comment [Automated messa ge] The system which generated this result transmitted reference range: 150 - 328 10*3/?L. The reference range was not used to interpret this result as normal/abnormal. MPV (test code = 75232-6) 11.5 fL 9.8-13 NRBC/100 WBC (test code = 1967430790) See_Comment [Automated [employer]ren[employer] ssage] The system which generated this result transmitted reference range: 0.0 - 10.0 /100 WBCs. The reference range was not used to interpret this result as normal/abnormal. NRBC x10^3 (test code = 6990249006) See_Comment [Automated messa ge] The system which generated this result transmitted reference range: 10*3/?L. The reference range was not used to interpret this result as normal/abnormal. GRAN MAT (NEUT) % (test code = 770-8) 44.0 % IMM GRAN % (test code = 7619808682) 0.20 % LYMPH % (test code = 736-9) 42.1 % MONO % (test code = 5905-5) 11.1 % EOS % (test code = 713-8) 2.2 % BASO % (test code = 706-2) 0.4 % GRAN MAT x10^3(ANC) (test code = 8461542708) 2.18 10*3/uL 1.99-6.95 IMM GRAN x10^3 (test code = 8172188288) 0-0.06 LYMPH x10^3 (test code = 731-0) 2.09 10*3/uL 1.09-3.23 MONO x10^3 (test code = 742-7) 0.55 10*3/uL 0.36-1.02 EOS x10^3 (test code = 711-2) 0.11 10*3/uL 0.06-0.53 BASO x10^3 (test code = 704-7) 0.01-0.09 Lab Interpretation (test code = 05853-0) [facility]normal [facility] TaylorTR[facility] [id number] 19:59:21* Test Item Value Reference Range Interpretation Comments TROPONIN I (test code = 2654269763) 0.027 ng/mL See_Comment [Automated message] The system [...] of biotin. Lab Interpretation (test code = 63969-8) [facility] Taylor[facility]MIN[facility] [id number] 19:56:01* Test Item Value Reference Range Interpretation Comme nts NT-proBNP (test code = 7220084905) 887 pg/mL See_Comment H [Automated message] The system which generated this result transmitted reference range: <=125. The reference range was not used to interpret this result as normal/abnormal. JACOB (test code = JACOB) Biotin has been reported to cause a negative bias, interpret results relative to patient's use of biotin. Lab Interpretation (test code = 92894-0) [facility] Taylor[facility]I METABOLIC PANEL (NA, K, CL, CO2, GLUCOSE, BUN, CREATININE, CA)2022-04-15 19:46:59* Test Item Value Reference Range Interpretation Comme nts NA (test code = 5785120825) 139 mmol/L 135-145 K (test code = 5897916068) 4.3 mmol/L 3.5-5 CL (test code = 2898258125) 102 mmol/L 98-108 CO2 TOTAL (test code = 1224118900) 26 mmol/L 23-31 AGAP (test code = 4506814431) 2-16 BUN (test code = 4748479015) 26 mg/dL 7-23 H GLUCOSE (test code = 9275709453) 126 mg/dL 70-110 H CREATININE (test code = 1824663340) 1.60 mg/dL 0.6-1.25 H CALCIUM (test code = 1614398449) 9.4 mg/dL 8.6-10.6 eGFR (test code = 4894387002) mL/min/1.73m2 JACOB (test code = JACOB) Association [...] imaging tests). Lab Interpretation (test code = 81851-0) Abnormal [facility] WITH [id number] 19:21:29* Test Item Value Reference Range Interpretation Comme nts WBC (test code = 6690-2) See_Comment [[employer]ated [employer]] The system which generated this result transmitted [...] 31.5 g/dL 31.2-35 RDW-SD (test code = 96402-1) 45.1 fL 38.5-51.6 RDW-CV (test code = 788-0) 15.9 % 12.1-15.4 H PLT (test code = 777-3) See_Comment [Automated [employer]] The system which generated this result transmitted reference range: 150 - 328 10*3/?L. The reference range was not used to interpret this result as normal/abnormal. MPV (test code = 30010-4) 10.8 fL 9.8-13 NRBC/100 WBC (test code = 9478224414) See_Comment [Automated [employer] Prenatal ssage] The system which generated this result transmitted reference range: 0.0 - 10.0 /100 WBCs. The reference range was not used to interpret this result as normal/abnormal. NRBC x10^3 (test code = 7252013436) See_Comment [Automated [employer]] The system which generated this result transmitted reference range: 10*3/?L. The reference range was not used to interpret this result as normal/abnormal. GRAN MAT (NEUT) % (test code = 770-8) 50.4 % IMM GRAN % (test code = 7289759020) 0.30 % LYMPH % (test code = 736-9) 37.0 % MONO % (test code = 5905-5) 10.1 % EOS % (test code = 713-8) 1.9 % BASO % (test code = 706-2) 0.3 % GRAN MAT x10^3(ANC) (test code = 9695757235) 2.98 10*3/uL 1.99-6.95 IMM GRAN x10^3 (test code = 0846474902) 0-0.06 LYMPH x10^3 (test code = 731-0) 2.19 10*3/uL 1.09-3.23 MONO x10^3 (test code = 742-7) 0.60 10*3/uL 0.36-1.02 EOS x10^3 (test code = 711-2) 0.11 10*3/uL 0.06-0.53 BASO x10^3 (test code = 704-7) 0.01-0.09 Lab Interpretation (test code = 92848-8) [facility]normal [facility] [id number] 11:27:00* Test Item Value Reference Range Interpretation Comme nts GLUCOSE BEDSIDE TESTING (cathy t code = GLUBED) 109 mg/dL 70-110 N BASIC METABOLIC [id number] 08:09:00* Test Item Value Reference Range Interpretation [...] CA) 9.5 MG/DL 8.5-10.1 N GLUCOSE BEDSIDE [id number] 07:15:00* Test Item Value Reference Range Interpretation Comme nts GLUCOSE BEDSIDE TESTING (cathy t code = GLUBED) 102 mg/dL 70-110 N GLUCOSE BEDSIDE [id number] 23:04:00* Test Item Value Reference Range Interpretation Comme nts GLUCOSE BEDSIDE TESTING (cathy t code = GLUBED) 127 mg/dL 70-110 H GLUCOSE BEDSIDE [id number] 20:03:00* Test Item Value Reference Range Interpretation Comme nts GLUCOSE BEDSIDE TESTING (cathy t code = GLUBED) 149 mg/dL 70-110 H GLUCOSE BEDSIDE [id number] 16:55:00* Test Item Value Reference Range Interpretation Comme nts GLUCOSE BEDSIDE TESTING (cathy t code = GLUBED) 110 mg/dL 70-110 N GLUCOSE BEDSIDE [id number] 11:23:00* Test Item Value Reference Range Interpretation Comme nts GLUCOSE BEDSIDE TESTING (cathy t code = GLUBED) 173 mg/dL 70-110 H GLUCOSE BEDSIDE [id number] 08:33:00* Test Item Value Reference Range Interpretation Comme nts GLUCOSE BEDSIDE TESTING (cathy t code = GLUBED) 107 mg/dL 70-110 N DRUGS OF ABUSE SCREEN [id number] 06:11:00* Test Item Value Reference Range Interpretation [...] used to interpret this result as normal/abnormal. [id number]-[id number] 20:43:00* Test Item Value Reference Range Interpretation [...] Completed by Nursing: NO- CTA CHEST FOR [id number] 18:35:00 [facility] 1965 Sex: M Name: BRYAN [place] : 1965 Age/S: 55 / M [address] Unit #: [id number] Loc: [place] [address] Phys: Isac Rouse DO Acct: [id number] Dis Date: Status: REG ER PHONE#: [phone] Exam Date: 02/27/2021 1800 FAX #: Reason: chest pain, elevated ddimer EXAMS: CPT: [id number] [place] [address] Location of dictation: B2 CTA of the [...] PAGE 1 Signed Report (CONTINUED) Name:BRYAN PARADA [place] : 1965 Age/S: 55 / M [address] [address] Unit #: [id number] Loc: [place] [address] Phys: Isac Rouse DO Acct: [id number] Dis Date: Status: REG ER PHONE #: Exam Date: 02/27/2021 1800 FAX #: Reason: chest pain, elevated ddimer EXAMS: CPT: [id number] [place] [address] (Continued) at 1835 Reported and signed by: April Marsh M.D. CC: Isac Rouse DO Technologist:Caitlin Slaughter, RT(R)(CT)(MRI) CTDI: DLP: Trnscb Date/Time: 02/27/2021 (1834) t.SYEDR.PXC Orig Print D/T: S: 02/27/2021 (1838) PAGE 2 Signed ReportCOVID 19 INHOUSE AG 2021-02-27 14:54:00* Test Item Value Reference Range Interpretation Comme nts COVID 19 INHOUSE AG (test code = [id number]) NEGATIVE Negative Per groover runner , negative results should be treated aspresumptive [...] of clinicalsigns and symptoms consistent with COVID-19. [id number] 13:38:00* Test Item Value Reference Range Interpretation Comme nts D-DIMER (test code = DDIMER) 939 ng/mLFEU 215-500 HH THROMBOSIS AND/O R PULMONARY EMBOLISM AND THE CLINICAL CUT-OFF VALUE FOR EXCLUSION (500 ng/mL FEU) OF THESE CONDITIONSIS VALIDATED BY THE SENIOR QA ENGINEER OF THE METHOD. A NEGATIVE D-DIMER RESULT WHEN COMBINED WITH A CLINICALASSESSMENT OF LOW PRETEST PROBABILITY HAS BEEN SHOWN TO HAVEA HIGH NEGATIVE PREDICTIVE VALUE OF DVT OR PE. D-DIMER VALUES >500 ng/mL FEU ARE NOT DIAGNOSTIC FOR DVT, PEor DIC WITHOUT OTHER CONFIRMATORY TESTS AND APPROPRIATECLINICAL EUALUATIONS. - XR CHEST 1 [id number] 13:35:[address] [facility] 1965 Sex: M Name: BRYAN PARADA [place] : 1965 Age/S: 55 / M [address] [address] Unit #: [id number] Loc: [place] [address] Phys: Isac Rouse DO Acct: [id number] Dis Date: Status: REG ER PHONE #: [phone] Exam Date: 02/27/2021 1320 FAX #: Reason: chest pain EXAMS: CPT: [id number] XR CHEST1 V 19689 Fluoro Time: DAP (Gy m2): Air Kerma [...] Reported and signed by: Gala Brand CC: Isac Rouse DO PAGE 1 Signed Report Name: BRYAN PARADA : 1965 Age/S: 55 / M [address] [address] Unit #: [id number] Loc: [place] [address] Phys: Isac Rouse DO Acct: [id number] Dis Date: Status: REG ER PHONE #: [phone] Exam Date: 02/27/2021 1320 FAX #: Reason: chest pain EXAMS: CPT: [id number] XR CHEST 1 V 66403 Fluoro Time: DAP (Gy m2): Air Kerma (mGy): (Continued) Technologist: Bandar Tirado, RT(R)(CT) Trnscb Date/Time: 02/27/2021 (4267) VikramPXC Orig Print D/T: S: 02/27/2021 (5714) PAGE 2 Signed ReportBASIC METABOLIC [id number] 13:29:00* Test Item Value Reference Range Interpretation [...] H Completed by Nursing: NONT PRO-BRAIN NATRIURETIC [id number] 13:29:00* Test Item Value Reference Range Interpretation Comme nts NT PRO-BRAIN NATRIURETIC PEP TI (test code = PROBNP) 1727 PG/ML 0-100 H Completed by Nursing: [id number] 13:29:00* Test Item Value Reference Range Interpretation [...] varyby method. Completed by Nursing: NOCBC W/O [id number] 13:18:00* Test Item Value Reference Range Interpretation [...] ode = MPV) 11.20 fL 7.0-9.6 H [id number] 16:47:00* Test Item Value Reference Range Interpretation Comme nts GLUBED (test code = GLUBED) 116 MG/DL 70-110 H Performed by cer tified pouring crane operator at [facility] [id number] 11:32:00* Test Item Value Reference Range Interpretation Comme nts GLUBED (test code = GLUBED) 110 MG/DL 70-110 N Performed by cer tified pouring crane operator at [facility] [id number] 08:13:00* Test Item Value Reference Range Interpretation Comme nts GLUBED (test code = GLUBED) 101 MG/DL 70-110 N Performed by cer tified pouring crane operator at [facility] HGBA1C%2021-02-06 07:50:00* Test Item Value Reference Range Interpretation Comme nts HGBA1C% (test code = HGBA1C%) 5.9 %A1C 4.8-6.0 N BASIC METABOLIC [id number] 07:33:00* Test Item Value Reference Range Interpretation [...] 9.0 mg/dL 8.0-10.5 N TSH REFLEX TO [id number] 07:33:00* Test Item Value Reference Range Interpretation Comme nts TSH REFLEX TO FT4 (test code = TSHREFLEX) 0.50 IU/mL 0.42-5.47 N BASIC METABOLIC [id number] 07:28:00* Test Item Value Reference Range Interpretation [...] 9.0 mg/dL 8.0-10.5 N TSH REFLEX TO [id number] 07:28:00* Test Item Value Reference Range Interpretation Comme nts TSH REFLEX TO FT4 (test code = TSHREFLEX) IU/mL 0.42-5.47 CBC W/AUTO [id number] 07:23:00* Test Item Value Reference Range Interpretation [...] REQUIRED (test c ode = MDIFF) NO [id number] 20:49:00* Test Item Value Reference Range Interpretation Comme nts GLUBED (test code = GLUBED) 129 MG/DL 70-110 H Performed by cer freeman pouring crane operator at [facility] COMPREHENSIVE METABOLIC [id number] 04:33:00* Test Item Value Reference Range Interpretation [...] = LDL) 160.1 mg/dL 0-100 H <100 XZWGMLN60 0-129 NEAR OPTIMAL/ABOVE [id number] IMJPTCEZYQ562-108 HIGH>LE=432 VERY HIGH*Guidelines provided by the National Cholesterol EducationProgram Adult Treatment Panel III CBC W/AUTO [id number] 04:22:00* Test Item Value Reference Range Interpretation [...] c ode = MDIFF) NO CBC W/AUTO [id number] 04:21:00* Test Item Value Reference Range Interpretation [...] DIFF REQUIRED (test c ode = MDIFF) [id number] 00:46:00* Test Item Value Reference Range Interpretation Comme nts TROPONIN-I (test code = TROPI) 0.090 ng/mL 0.000-0.045 H Negative: <= 0.0 45 Positive: >= 0.046 Correlation with serial results, other cardiac markers andclinical findings is necessary to determine the clinicalsignificance of this result. Results using different methodologies should not be comparedto one another as quantitative results may vary by method. LIPOPROTEIN [id number] 22:00:00* Test Item Value Reference Range Interpretation Comme nts LIPOPROTEIN LDL (test code = LDL) 166.8 mg/dL 0-100 H <100 BTRIZMP28 0-129 NEAR OPTIMAL/ABOVE YYNRTMO362-840 BHFTDBFSGL415-881 HIGH>QH=991 VERY HIGH*Guidelines provided by the National Cholesterol EducationProgram Adult Treatment Panel III [id number] 21:44:00* Test Item Value Reference Range Interpretation Comme nts TROPONIN-I (test code = TROPI) 0.098 ng/mL 0.000-0.045 H Negative: <= 0.0 45 Positive: >= 0.046 Correlation with serial results, other cardiac markers andclinical findings is necessary to determine the clinicalsignificance of this result. Results using different methodologies should not be comparedto one another as quantitative results may vary by method. [id number] 21:34:00* Test Item Value Reference Range Interpretation Comme nts GLUBED (test code = GLUBED) 94 MG/DL 70-110 N Performed by cer tified pouring crane operator at [facility] UA RFLX MICR CULT IF [id number] 18:05:00* Test Item Value Reference Range Interpretation [...] Indication for culture: Dysuria/FrequencyDRUGS OF ABUSE SCREEN [id number] 18:05:00* Test Item Value Reference Range Interpretation [...] Indication for culture: Dysuria/FrequencyDRUGS OF ABUSE SCREEN [id number] 17:28:00* Test Item Value Reference Range Interpretation [...] Indication for culture: Dysuria/FrequencyDRUGS OF ABUSE SCREEN [id number] 17:23:00* Test Item Value Reference Range Interpretation [...] Indication for culture: Dysuria/Frequency- CTA CHEST FOR [id number] 16:11:00 [facility] 1965 Sex: M Name: BRYAN PARADA : 1965 Age/S: 55 / M [address] Unit #: [id number] Loc: [place] [address] Phys: RouseIsac Acct: [id number] Dis Date: Status: REG ER PHONE#: [phone] Exam Date: 02/04/2021 1549 FAX #: Reason: chest pain EXAMS: CPT: [id number] [place] [address] EXAM: - CTA CHEST FOR PE LOCATION: [...] PARADA : 1965 Age/S: 55 / M [address] [address] Unit #: [id number] Loc: [place] [address] Phys: Isac Rouse DO Acct: [id number] Dis Date: Status: REG ER PHONE #: [phone] Exam Date: 02/04/2021 1540 FAX #: Reason: chest pain EXAMS: CPT: [id number] [place] [address] (Continued) BONES: No acute osseous findings. Mild thoracic texture scoliosis. IMPRESSION: 1. No pulmonary embolism. No acute findings throughout the lungs. 2. Borderline dilated heart chambers. at 1611 Reported and signed by: Luis Rogers D.O. CC: Isac Rouse DO; Afua DARNELL Technologist:Carmen Ruggiero RT(R) CTDI: DLP: Trnscb Date/Time: 02/04/2021 (161) VikramJW22 Orig Print D/T: S: 02/04/2021 (3236) PAGE 2 Signed Report [id number] 14:30:00* Test Item Value Reference Range Interpretation Comme nts D-DIMER (test code = DDIMER) 979 ng/mLFEU 215-500 HH BASIC METABOLIC [id number] 14:03:00* Test Item Value Reference Range Interpretation [...] 776 Unit/L 26-192 H Completed by Nursing: [id number]-[id number] 14:03:00* Test Item Value Reference Range Interpretation [...] method. Completed by Nursing: NOCOVID 19 INHOUSE [id number] 13:50:00* Test Item Value Reference Range Interpretation Comme nts COVID 19 INHOUSE AG (test code = [id number]) NEGATIVE Negative Per groover runner , negative results should be treated aspresumptive [...] consistent with COVID-19. - XR CHEST 1 [id number] 13:44:[address] [facility] 1965 Sex: M Name: BRYAN PARADA [facility] : 1965 Age/S: 55 / M [address] [address] Unit #: [id number] Loc: [place] [address] Phys: Isac Rouse DO Acct: [id number] Dis Date: Status: PRE ER PHONE#: [phone] Exam Date: 02/04/2021 1326 FAX #: Reason: chest pain EXAMS: CPT: [id number] XR CHEST 1 V 00223 Fluoro Time: DAP (Gy m2): Air Kerma [...] and centralvenous congestion, without acute decompensation. at 1404 Reported and signed by: Geoff Scott M.D. CC: Isac Rouse ; Afua DARNELL PAGE 1 Signed Report Name: BRYAN PARADA : 1965 Age/S: 55 / M [address] [address] Unit #: [id number] Loc: [place] [address] Phys: Isac Rouse DO Acct: [id number] Dis Date: Status: PRE ER PHONE #: [phone] Exam Date: 02/04/2021 1326 FAX #: Reason: chest pain EXAMS: CPT: [id number] XR CHEST 1 V 62175 Fluoro Time: DAP (Gy m2): Air Kerma (mGy): (Continued) Technologist: Nikole Ruggiero RT(R) Trnscb Date/Time: 02/04/2021 (9747) VikramRK5 Orig Print D/T: S: 02/04/2021 (1336) PAGE 2 Signed ReportCBC W/O [id number] 13:36:00* Test Item Value Reference Range Interpretation [...] MPV) 10.90 fL 7.0-9.6 H BASIC METABOLIC [id number] 12:58:00* Test Item Value Reference Range Interpretation [...] CA) 9.0 MG/DL 8.5-10.1 N CBC W/AUTO [id number] 12:51:00* Test Item Value Reference Range Interpretation [...] = LDL) 119 MG/DL 0-129 N <100 FBNSGPW37 0 - 129 NEAR OPTIMAL/ABOVE ZVFWOTG352 - 159 MRAKSXKKCB188 - 189 HIGH>OR= 190 VERY HIGHNOTE THAT GUIDELINES ARE PROVIDED BY NATIONAL CHOLESTEROLEDUCATION PROGRAM ADULT TREATMENT PANEL III LDL/HDL (test code = LDL/HDL) 3.05 Ratio See_Comment N [Automated messa ge] The system which generated this result transmitted reference range: 1.48-3.22 Avg. The reference range was not used to interpret this result as normal/abnormal. GLYCOSYLATED HEMOGLOBIN [id number] 12:24:00* Test Item Value Reference Range Interpretation Comme [facility] GLYCOSYLATED HEMOGLOBIN (HA1 C) (test code = GLYHGB) 5.8 % A1C 0.0-5.7 H ESTIMATED AVERAGE GLUCOSE (t est code = EAG) 120 MG/DLest GLUCOSE BEDSIDE [id number] 12:05:00* Test Item Value Reference Range Interpretation Comme [facility] GLUCOSE BEDSIDE TESTING (cathy t code = GLUBED) 151 mg/dL 70-110 H - XR CHEST 1 [id number] 11:05:00 [facility] 1965 Sex: M Name: BRYAN [place] : 1965 Age/S: 55 / M [address] [address] Unit #: [id number] Loc: [place] [address] Phys: Rosina Napierimmanuel GONZALEZ Acct: [id number] Dis Date: Status: ADM IN PHONE #: [phone] Exam Date: 01/07/2021 1050 FAX #: Reason: Cough EXAMS: CPT: [id number] XR CHEST 1 V 13629 Fluoro Time: DAP (Gy m2): Air Kerma [...] PAGE 1 Signed Report Name: BRYAN PARADA [place] : 1965 Age/S: 55 / M [address] [address] Unit #: [id number] Loc: [place] [address] Phys: KarthikeyanRosinaimmanuel GONZALEZ Acct: [id number] Dis Date: Status: ADM IN PHONE#: [phone] Exam Date: 01/07/2021 1050 FAX #: Reason: Cough EXAMS: CPT: [id number] XR CHEST 1 V 44600 Fluoro Time: DAP (Gy m2): Air Kerma (mGy): (Continued) Technologist: Jonna Ramirez RT(R)(MR) Trnscb Date/Time: 01/07/2021 (1105) tANGELIQUEPE1 Orig Print D/T: S: 01/07/2021 (7158) PAGE 2 Signed Report GLUCOSE BEDSIDE [id number] 08:05:00* Test Item Value Reference Range Interpretation Comme nts GLUCOSE BEDSIDE TESTING (cathy t code = GLUBED) 105 mg/dL 70-110 N GLUCOSE BEDSIDE [id number] 21:27:00* Test Item Value Reference Range Interpretation Comme nts GLUCOSE BEDSIDE TESTING (cathy t code = GLUBED) 100 mg/dL 70-110 N GLUCOSE BEDSIDE [id number] 16:40:00* Test Item Value Reference Range Interpretation Comme nts GLUCOSE BEDSIDE TESTING (cathy t code = GLUBED) 89 mg/dL 70-110 N GLUCOSE BEDSIDE [id number] 12:10:00* Test Item Value Reference Range Interpretation Comme nts GLUCOSE BEDSIDE TESTING (cathy t code = GLUBED) 94 mg/dL 70-110 N GLUCOSE BEDSIDE [id number] 07:51:00* Test Item Value Reference Range Interpretation Comme nts GLUCOSE BEDSIDE TESTING (cathy t code = GLUBED) 102 mg/dL 70-110 N GLUCOSE BEDSIDE [id number] 20:30:00* Test Item Value Reference Range Interpretation Comme nts GLUCOSE BEDSIDE TESTING (cathy t code = GLUBED) 98 mg/dL 70-110 N GLUCOSE BEDSIDE [id number] 15:39:00* Test Item Value Reference Range Interpretation Comme nts GLUCOSE BEDSIDE TESTING (cathy t code = GLUBED) 102 mg/dL 70-110 N - CT ANGIO [id number] 14:06:[address] [facility] 1965 Sex: M Name: BRYAN PARADA [facility] : 1965 Age/S: 55 / M [address] [address] Unit #: [id number] Loc: [place] [address] Phys: Anabela Le MD Acct: [id number] Dis Date: Status: ADM IN PHONE #: [phone] Exam Date: 01/05/2021 1334 FAX #: Reason: CVA EXAMS: CPT: [id number] CT ANGIO NECK [address] Exam: - CT ANGIO HEAD, - CT [...] Signed Report (CONTINUED) Name: BRYAN PARADA [facility] [place] : 1965 Age/S: 55/ M [address] [address] Unit #: [id number] Loc: [place] [address] Phys: Anabela Le MD Acct: [id number] Dis Date: Status: ADM IN PHONE #: [phone] Exam Date: 01/05/2021 1331 FAX #: Reason: CVA EXAMS: CPT: [id number] CT ANGIO NECK [address] (Continued) visualized fascial planes of the neck [...] 2 Signed Report (CONTINUED) Name: BRYAN PARADA [facility] : 1965 Age/S: 55 / M [address] [address] Unit #: [id number] Loc: [place] [address] Phys: Anabela Le MD Acct: [id number] Dis Date: Status: ADM IN PHONE #: [phone] Exam Date: 01/05/2021 7334 FAX #: Reason: CVA EXAMS: CPT: [id number] CT ANGIO NECK [address] (Continued) Posterior communicating arteries: Not visualized Distal [...] 3 Signed Report (CONTINUED) Name: BRYAN PARADA [facility] : 1965 Age/S: 55 / M [address] [address] Unit #: [id number] Loc: [place] [address] Phys: Anabela Le MD Acct: [id number] Dis Date: Status: ADM IN PHONE #: [phone] Exam Date: 01/05/2021 1335 FAX #: Reason: CVA EXAMS: CPT: [id number] CT ANGIO NECK [address]483 (Continued) CC: Anabela Le MD; Yared Scott MD Technologist:Criss Sahni, RT(R)(CT); .. CTDI: DLP: Trnscb Date/Time: 01/05/2021 (140) tTejSDR.AL7 Orig Print D/T: S: 01/05/2021 (1410) PAGE 4 Signed Report- CT ANGIO [id number] 14:06:[address] [facility] 1965 Sex: M Name: BRYAN PARADA : 1965 Age/S: 55 / M [address] [address] Unit #: [id number] Loc: [place] [address] Phys: Anabela Le MD Acct: [id number] Dis Date: Status: ADM IN PHONE #: [phone] Exam Date: 01/05/2021 1331 FAX #: Reason: CVA EXAMS: CPT: [id number] CT ANGIO HEAD [address] Exam: - CT ANGIO HEAD, - CT [...] 1.2 mg/dL DLP: 1184 mGy-cm. FINDINGS: CTA NeckAorta and great vessel origins: No significant plaque [...] the internal carotid arteries are otherwise unremarkable. Originsof the external carotid arteries are patent and within normal limits. Vertebral arteries: The vertebral arteries arise from the bilateral subclavian arteries. There is no stenosis, occlusion or dissection. The degree of stenosis is based on end vessel luminal diameter per NASCET criteria. Neck: Fascial planes: Nodules are redemonstrated within the thyroid gland. Largest in the left thyroid lobe m easures 2.9 cm, unchanged. Further characterization with thyroid ultrasound is recommended. Remaining PAGE 1 Signed Report (CONTINUED) Name: BRYAN PARADA : 1965 Age/S: 55 / M [address] [address] Unit #: [id number] Loc: [place] [address] Phys: Anabela Le MD Acct: [id number] Dis Date: Status: ADM IN PHONE #: [phone] Exam Date: 01/05/2021 1331 FAX #: Reason: CVA EXAMS: CPT: [id number] CT ANGIO HEAD [address] (Continued) visualized fascial planes of the neck are unremarkable. Lymph nodes: There is no cervical adenopathy. Bones: Spondylosis is noted in the mid cervical spine. There is reversal of normal cervical lordosis. No discrete osteolytic or osteosclerotic lesions are seen. Thorax: No significant abnormality. IMPRESSION: CTA neck 1. No stenosis,occlusion or dissection of the common or internal carotid arteries or vertebral arteries. 2. Nodules within the thyroid gland which can be better characterized with ultrasound on nonemergent basis. F INDINGS: CTA Head Internal carotid arteries: Patent. No [...] 2 Signed Report (CONTINUED) Name: BRYAN PARADA [facility] : 1965 Age/S: 55 / M [address] [address] Unit #: [id number] Loc: [place] [address] Phys: Anabela Le MD Acct: [id number] Dis Date: Status: ADM IN PHONE #: [phone] Exam Date: 01/05/2021 1330 FAX #: Reason: CVA EXAMS: CPT: [id number] CT ANGIO HEAD [address] (Continued) Posterior co mmunicating arteries: Not visualized Distal cerebral arteries: Slight [...] nonspecific. Left globe prosthetic is present. There ismild mucosal thickening of the bilateral ethmoid air cells and right maxillary sinus. Dehiscence ofthe medial wall of the right orbit is noted. Bones of the calvaria and skull base are otherwise intact. IMPRESSION: CTA Head 1. No large vessel occlusion. No significant stenosis. No aneurysmal dilatation or vascular malformation. 2. Slight irregularity of distal cerebral arteries may be in part artifactual although further vasculopathy is considered. Electronically Signed by Gala Paez on01/05/2021 at 1406 Reported and signed by: Diego Paez M.D. PAGE 3 Signed Report (CONTINUED) Name: BRYAN PARADA : 1965 Age/S: 55 / M [address] [address] Unit #: [id number]: [place] [address] Phys: Anabela Le MD Acct: [id number] Dis Date: Status: ADM IN PHONE #: [phone] Exam Date: 01/05/2021 1330 FAX #: Reason: CVA EXAMS: CPT: [id number] CT ANGIO HEAD [address] (Continued) CC: Anabela Le MD; Yared Scott MD Technologist:Criss Sahni, RT(R)(CT); .. CTDI: DLP: Trnscb Date/Time: 01/05/2021 (1406) t.SDR.AL7 Orig Print D/T: S: 01/05/2021(1410) PAGE 4 Signed ReportBASIC METABOLIC [id number] 12:38:00* Test Item Value Reference Range Interpretation [...] CA) 9.0 MG/DL 8.5-10.1 N CBC W/AUTO [id number] 12:28:00* Test Item Value Reference Range Interpretation [...] ode = MDIFF) NO DIFF/SCN CRITERIA PROTHROMBIN [id number] 12:27:00* Test Item Value Reference Range Interpretation Comme nts PT PATIENT (test code = PTP) 12.1 SECONDS 9.3-12.9 N INTERNATIONAL NORMAL RATIO (test code = INR) 1.08 INR Unit 0.8-1.2 N THROMBOPLASTIN TIME [id number] 12:27:00* Test Item Value Reference Range Interpretation Comme nts THROMBOPLASTIN TIME PARTIAL (test code = PTT) 33.0 SECONDS 26-35 N GLUCOSE BEDSIDE [id number] 11:56:00* Test Item Value Reference Range Interpretation Comme nts GLUCOSE BEDSIDE TESTING (cathy t code = GLUBED) 101 mg/dL 70-110 N - CT HEAD/BRAIN W/O [id number] 11:53:00 [facility] 1965 Sex: M Name: BRYAN PARADA [place] : 1965 Age/S: 55 / M [address] [address] Unit #: [id number] Loc: [place] [address] Phys: Susan Conway MD Acct: [id number] Dis Date: Status: ADM IN PHONE#: [phone] Exam Date: 01/05/2021 1139 FAX #: Reason: left sided weakness EXAMS: CPT: [id number] CT HEAD/BRAIN W/O CONT 72020 EXAM: CT Head without contrast Location: B2 [...] ethmoid air cells. Preliminary findings were given nikole Zuñiga RN in the IMU at 1151 hours PAGE 1 Signed Report (CONTINUED) Name: BRYAN PARADAneena : 1965 Age/S: 55 / M [address] [address] Unit #: [id number] Loc: [place] [address] Phys: Susan Conway MD Acct: [id number] Dis Date: Status: ADM IN PHONE #: [phone] Exam Date: 01/05/2021 1139 FAX #: Reason: left sided weakness EXAMS: CPT: [id number] CT HEAD/BRAIN W/O CONT 36888 (Continued) on 01/05/2021 FOR INTERNAL CODING PURPOSES ONLY RESULT CODE: CVR at 1153 Reported and signed by: Diego Paez M.D. CC: Susan Conway MD; Yared Scott MD Technologist:Criss Sahni, RT(R)(CT); .. CTDI: DLP: Trnscb Date/Time: 01/05/2021 (115) t.SDR.AL7 Orig Print D/T: S: 01/05/2021 (9909) PAGE 2 Signed ReportGLUCOSE BEDSIDE TESTING 2021-01-05 07:54:00* Test Item Value Reference Range Interpretation Comme nts GLUCOSE BEDSIDE TESTING (cathy t code = GLUBED) 118 mg/dL 70-110 H GLUCOSE BEDSIDE [id number] 21:52:00* Test Item Value Reference Range Interpretation Comme nts GLUCOSE BEDSIDE TESTING (cathy t code = GLUBED) 98 mg/dL 70-110 N GLUCOSE BEDSIDE [id number] 15:47:00* Test Item Value Reference Range Interpretation Comme nts GLUCOSE BEDSIDE TESTING (cathy t code = GLUBED) 124 mg/dL 70-110 H GLUCOSE BEDSIDE [id number] 11:34:00* Test Item Value Reference Range Interpretation Comme nts GLUCOSE BEDSIDE TESTING (cathy t code = GLUBED) 107 mg/dL 70-110 N GLUCOSE BEDSIDE [id number] 07:37:00* Test Item Value Reference Range Interpretation Comme nts GLUCOSE BEDSIDE TESTING (cathy t code = GLUBED) 109 mg/dL 70-110 N BASIC METABOLIC [id number] 04:53:00* Test Item Value Reference Range Interpretation [...] code = CA) 8.7 MG/DL 8.5-10.1 N [id number] 04:53:00* Test Item Value Reference Range Interpretation Comme nts PHOSPHOROUS (test code = PHOS) 3.8 MG/DL 2.5-4.9 N [id number] 04:53:00* Test Item Value Reference Range Interpretation Comme nts MAGNESIUM (test code = MAG) 2.1 MG/DL 1.8-2.4 N NT PRO-BRAIN NATRIURETIC [id number] 04:53:00* Test Item Value Reference Range Interpretation Comme nts NT PRO-BRAIN NATRIURETIC PEP TI (test code = PROBNP) 753 PG/ML 0-100 H BASIC METABOLIC [id number] 04:47:00* Test Item Value Reference Range Interpretation [...] code = CA) 8.7 MG/DL 8.5-10.1 N [id number] 04:47:00* Test Item Value Reference Range Interpretation Comme nts PHOSPHOROUS (test code = PHOS) MG/DL 2.5-4.9 [id number] 04:47:00* Test Item Value Reference Range Interpretation Comme nts MAGNESIUM (test code = MAG) 2.1 MG/DL 1.8-2.4 N NT PRO-BRAIN NATRIURETIC [id number] 04:47:00* Test Item Value Reference Range Interpretation Comme nts NT PRO-BRAIN NATRIURETIC PEP TI (test code = PROBNP) PG/ML 0-100 CBC W/AUTO [id number] 04:34:00* Test Item Value Reference Range Interpretation [...] = MDIFF) NO DIFF/SCN CRITERIA GLUCOSE BEDSIDE [id number] 22:32:00* Test Item Value Reference Range Interpretation Comme nts GLUCOSE BEDSIDE TESTING (cathy t code = GLUBED) 88 mg/dL 70-110 N GLUCOSE BEDSIDE [id number] 17:59:00* Test Item Value Reference Range Interpretation Comme nts GLUCOSE BEDSIDE TESTING (cathy t code = GLUBED) 97 mg/dL 70-110 N - XR CHEST 1 [id number] 17:25:[address] [facility] 1965 Sex: M Name: BRYAN PARADA [facility] : 1965 Age/S: 55 / M [address] Unit #: [id number] Loc: [place] [address] Phys: Rolando Napier AGAHANNAP Acct: [id number] Dis Date: Status: ADM IN PHONE #: [phone] Exam Date: 01/03/20218 FAX #: Reason: Dyspnea EXAMS: CPT: [id number] XR CHEST 1 V 07055 Fluoro Time: DAP (Gy m2): Air Kerma [...] PAGE 1 Signed Report Name: BRYAN PARADA [facility] : 1965 Age/S: 55 / M [address] [address] Unit #: [id number] Loc: [place] [address] Phys: Rolando Napier Acct: [id number] Dis Date: Status: ADM IN PHONE #: [phone] Exam Date: 01/03/20210 FAX #: Reason: Dyspnea EXAMS: CPT: [id number] CHEST 1 V 30451 Fluoro Time: DAP (Gy m2): Air Kerma (mGy): (Continued) Technologist: Polly Mcnamara, RT(R)(CT); Shahnaz Rider RT(R) [facility] [place] Date/Time: 01/03/2021 (1724) 16 Orig Print D/T: S: 01/03/2021 (5587) PAGE 2 Signed ReportBASIC METABOLIC [id number] 14:57:00* Test Item Value Reference Range Interpretation [...] 8.9 MG/DL 8.5-10.1 N Completed by Nursing: [id number] 14:57:00* Test Item Value Reference Range Interpretation [...] method. Completed by Nursing: NOCOVID 19 INHOUSE [id number] 14:55:00* Test Item Value Reference Range Interpretation Comme nts COVID 19 INHOUSE AG (test code = [id number]) NEGATIVE Negative Per groover runner , negative results should be treated aspresumptive [...] symptoms consistent with COVID-19. Spec Comments: NPROTHROMBIN [id number] 14:54:00* Test Item Value Reference Range Interpretation Comme nts PT PATIENT (test code = PTP) 11.0 SECONDS 9.3-12.9 N INTERNATIONAL NORMAL RATIO (test code = INR) 0.98 INR Unit 0.8-1.2 N THROMBOPLASTIN TIME [id number] 14:54:00* Test Item Value Reference Range Interpretation Comme nts THROMBOPLASTIN TIME PARTIAL (test code = PTT) 30.0 SECONDS 26-35 N - CT ANGIO [id number] 14:53:[address] [facility] 1965 Sex: M Name: BRYAN PARADA [facility] : 1965 Age/S: 55 / M [address] Unit #: [id number] Loc: [place] [address] Phys: Musa Alfaro DO Acct: [id number] Dis Date: Status: REG ER PHONE#: [phone] Exam Date: 01/03/2021 1426 FAX #: Reason: left sided weakness EXAMS: CPT: [id number] CT ANGIO HEAD [address]332 B2 - CT ANGIO NECK, - CT [...] 1 Signed Report (CONTINUED) Name: BRYAN PARADA [facility] Cony : 1965 Age/S: 55 / M [address] [address] Unit #: [id number] Loc: [place] [address] Phys: Musa Alfaro DO Acct: [id number] Dis Date: Status: REG ER PHONE #: [phone] Exam Date: 01/03/2021 1425 FAX #: Reason: left sided weakness EXAMS: CPT: [id number] CT ANGIO HEAD [address] (Continued) Both posterior cerebral arteries are normal. [...] Technologist:Shahnaz Rider, RT(R) CTDI:DLP: Trnscb Date/Time: 01/03/2021 (1453) tKATELINR.VB7 Orig Print D/T: S: 01/03/2021 (7297) PAGE 2 Signed Report- CT ANGIO [id number] 14:53:[address] 1965 Sex: M Name: BRYAN PARADA : 1965 Age/S: 55 / M [address] Unit #: [id number] Loc: [place] [address] Phys: Musa Alfaro DO Acct: [id number] Dis Date: Status: REG ER PHONE #: [phone] Exam Date: 01/03/20211428 FAX #: Reason: left sided weakness EXAMS: CPT: [id number] CT ANGIO NECK [address] B2 - CT ANGIO NECK, - CT [...] PARADA : 1965 Age/S: 55 / M [address] Unit #: [id number] Loc: [place] [address] Phys: Musa Alfaro DO Acct: [id number] Dis Date: Status: REG ER PHONE #: [phone] Exam Date: 01/03/2021 1428 FAX #: Reason: left sided weakness EXAMS: CPT: [id number] CT ANGIO NECK [address] (Continued) Both posterior cerebral arteries are normal. [...] Technologist:Shahnaz Rider, RT(R) CTDI:DLP: Trnscb Date/Time: 01/03/2021 (1452) t.[email or web address] Orig Print D/T: S: 01/03/2021 (9126) PAGE 2 Signed ReportCBC W/O [id number] 14:32:00* Test Item Value Reference Range Interpretation [...] fL 7.0-9.6 H - CT HEAD/BRAIN W/O [id number] 14:20:[address] [facility] 1965 Sex: M Name: BRYAN PARADA [facility] : 1965 Age/S: 55 / M [address] [address] Unit #: [id number] Loc: [place] [address] Phys: Musa Alfaro DO Acct: [id number] Dis Date: Status: PRE ER PHONE #: [phone] Exam Date: 01/03/2021 1406 FAX #: Reason: Code Stroke EXAMS: CPT: [id number] CT HEAD/BRAIN W/O CONT 69213 EXAMINATION: Head CT without contrast INDICATION: Code stroke COMPARISON: 11/29/2020 LOCATION: S17 TECHNIQUE: Axial noncontrast head CT was performed. Sagittal and coronal reformatted images were created. CT radiation dose optimization is achieved for this examination by the use of a CT protocol in accordance with ACR practice guidelines and adherence to groover runner recommendations. DLP: 836 mGy-cm. FINDINGS: Mild-moderate supratentorial [...] La CTDI: DLP: Trnscb Date/Time: 01/03/2021 (1420) t.SDR.PE1 Orig Print D/T: S: 01/03/2021 (7652) PAGE 1 Signed ReportGLUCOSE BEDSIDE [id number] 11:35:00* Test Item Value Reference Range Interpretation Comme nts GLUCOSE BEDSIDE TESTING (cathy t code = GLUBED) 115 MG/DL 70-119 N CBC W/AUTO [id number] 09:54:00* Test Item Value Reference Range Interpretation [...] NRBC#) 0.00 K/mm3 0.00-0.05 N RECOLLECTGLUCOSE BEDSIDE [id number] 07:34:00* Test Item Value Reference Range Interpretation Comme nts GLUCOSE BEDSIDE TESTING (cathy t code = GLUBED) 116 MG/DL 70-119 N BASIC METABOLIC [id number] 06:24:00* Test Item Value Reference Range Interpretation [...] used to interpret this result as normal/abnormal. [id number] 06:24:00* Test Item Value Reference Range Interpretation Comme nts MAGNESIUM (test code = MAG) 2.3 MG/DL 1.6-2.6 N GLUCOSE BEDSIDE [id number] 20:37:00* Test Item Value Reference Range Interpretation Comme nts GLUCOSE BEDSIDE TESTING (cathy t code = GLUBED) 118 MG/DL 70-119 N GLUCOSE BEDSIDE [id number] 16:47:00* Test Item Value Reference Range Interpretation Comme nts GLUCOSE BEDSIDE TESTING (cathy t code = GLUBED) 100 MG/DL 70-119 N GLUCOSE BEDSIDE [id number] 07:44:00* Test Item Value Reference Range Interpretation Comme nts GLUCOSE BEDSIDE TESTING (cathy t code = GLUBED) 121 MG/DL 70-119 H GLUCOSE BEDSIDE [id number] 19:59:00* Test Item Value Reference Range Interpretation Comme nts GLUCOSE BEDSIDE TESTING (cathy t code = GLUBED) 135 MG/DL 70-119 H GLUCOSE BEDSIDE [id number] 15:51:00* Test Item Value Reference Range Interpretation Comme nts GLUCOSE BEDSIDE TESTING (cathy t code = GLUBED) 85 MG/DL 70-119 N - NM MYOCRD SPECT R/S [id number] 13:57:00 [facility] : 1965 Sex: M----- Patient Name: BRYAN PARADA Unit No: [id number] EXAMS: CPT CODE: [id number] NM MYOCRD SPECT R/S MULT 21303 Patient was brought to the stress test [...] CC: Alexa DELA CRUZ,KIKO,SIVAN Montelongo; Chuckie Olmos [facility] NAME: BRYAN PARADA [facility] PHYS: Alexa Farrell APRN,[address] : 1965 AGE: 54 SEX: Kimberly [place], [place] [address] LOC: Gurpreet W PHONE #: [phone] EXAM DATE: 12/01/2020 STATUS: ADM IN FAX #: [phone] RAD NO: DC Dt: PAGE 1 Signed Report Patient Name: BRYAN PARADA Unit No: [id number] EXAMS: CPT CODE: [id number] NM MYOCRD SPECT R/S MULT 10572 <Continued> Technologist: Macy Obrien; Palomo Sepulveda Transcribed Date/Time: 12/03/2020 (2178) - t.SYEDR.AA6 Orig Print D/T: S: 12/03/2020 (1388) EMILY Chamorro NAME: BRYAN PARADA [facility] PHYS: Alexa Farrell APRN,[address] : 1965 AGE: 54 SEX: Kimberly [place], [place] [address] LOC: B.245 W PHONE #: [phone] EXAM DATE: 12/01/2020 STATUS: ADM IN FAX #: [phone] RAD NO: DC Dt: PAGE 2 Signed ReportGLUCOSE BEDSIDE [id number] 11:46:00* Test Item Value Reference Range Interpretation Comme nts GLUCOSE BEDSIDE TESTING (cathy t code = GLUBED) 114 MG/DL 70-119 N [id number] 07:43:00* Test Item Value Reference Range Interpretation Comme nts CKMB (test code = CKMBT) 1.1 NG/ML 1.0-3.6 N MONOCLONAL CKMB METHODOLOGY. [id number] 07:43:00* Test Item Value Reference Range Interpretation [...] of temporal changes in troponin levelscharacteristic of PR. GLUCOSE BEDSIDE [id number] 07:35:00* Test Item Value Reference Range Interpretation Comme nts GLUCOSE BEDSIDE TESTING (cathy t code = GLUBED) 104 MG/DL 70-119 N [id number] 07:24:00* Test Item Value Reference Range Interpretation Comme nts CKMB (test code = CKMBT) NG/ML 1.0-3.6 [id number] 07:24:00* Test Item Value Reference Range Interpretation Comme nts TROPONIN-I (test code = TROPI) 0.031 NG/ML 0.000-0.045 INTERPRET WITH C KASSANDRAION, THIS VALUE EXCEEDS [...] of temporal changes in troponin levelscharacteristic of PR. BASIC METABOLIC [id number] 06:50:00* Test Item Value Reference Range Interpretation [...] used to interpret this result as normal/abnormal. [id number] 06:50:00* Test Item Value Reference Range Interpretation Comme nts MAGNESIUM (test code = MAG) 2.2 MG/DL 1.6-2.6 N BASIC METABOLIC [id number] 06:24:00* Test Item Value Reference Range Interpretation [...] used to interpret this result as normal/abnormal. [id number] 06:24:00* Test Item Value Reference Range Interpretation Comme nts MAGNESIUM (test code = MAG) MG/DL 1.6-2.6 GLUCOSE BEDSIDE [id number] 19:35:00* Test Item Value Reference Range Interpretation Comme nts GLUCOSE BEDSIDE TESTING (cathy t code = GLUBED) 130 MG/DL 70-119 H GLUCOSE BEDSIDE [id number] 16:35:00* Test Item Value Reference Range Interpretation Comme nts GLUCOSE BEDSIDE TESTING (test code = GLUBED) 103 MG/DL 70-119 N Notified Nu rse~ GLUCOSE BEDSIDE [id number] 12:00:00* Test Item Value Reference Range Interpretation Comme nts GLUCOSE BEDSIDE TESTING (test code = GLUBED) 128 MG/DL 70-119 H Notified Nu rse~ GLUCOSE BEDSIDE [id number] 08:28:00* Test Item Value Reference Range Interpretation Comme nts GLUCOSE BEDSIDE TESTING (test code = GLUBED) 123 MG/DL 70-119 H Notified Nu rse~ GLUCOSE BEDSIDE [id number] 19:40:00* Test Item Value Reference Range Interpretation Comme nts GLUCOSE BEDSIDE TESTING (cathy t code = GLUBED) 84 MG/DL 70-119 N GLUCOSE BEDSIDE [id number] 16:53:00* Test Item Value Reference Range Interpretation Comme nts GLUCOSE BEDSIDE TESTING (test code = GLUBED) 100 MG/DL 70-119 N Notified Nu rse~ GLUCOSE BEDSIDE [id number] 13:00:00* Test Item Value Reference Range Interpretation Comme nts GLUCOSE BEDSIDE TESTING (cathy t code = GLUBED) 128 MG/DL 70-119 H GLUCOSE BEDSIDE [id number] 08:35:00* Test Item Value Reference Range Interpretation Comme nts GLUCOSE BEDSIDE TESTING (cathy t code = GLUBED) 95 MG/DL 70-119 N GLUCOSE BEDSIDE [id number] 19:49:00* Test Item Value Reference Range Interpretation Comme nts GLUCOSE BEDSIDE TESTING (cathy t code = GLUBED) 117 MG/DL 70-119 N GLUCOSE BEDSIDE [id number] 16:52:00* Test Item Value Reference Range Interpretation Comme nts GLUCOSE BEDSIDE TESTING (cathy t code = GLUBED) 103 MG/DL 70-119 N GLUCOSE BEDSIDE [id number] 12:30:00* Test Item Value Reference Range Interpretation Comme nts GLUCOSE BEDSIDE TESTING (cathy t code = GLUBED) 121 MG/DL 70-119 H GLUCOSE BEDSIDE [id number] 07:43:00* Test Item Value Reference Range Interpretation Comme nts GLUCOSE BEDSIDE TESTING (cathy t code = GLUBED) 96 MG/DL 70-119 N COMPREHENSIVE METABOLIC [id number] 05:53:00* Test Item Value Reference Range Interpretation [...] used to interpret this result as normal/abnormal. [id number] 05:53:00* Test Item Value Reference Range Interpretation Comme nts MAGNESIUM (test code = MAG) 2.2 MG/DL 1.6-2.6 N COMPREHENSIVE METABOLIC [id number] 05:38:00* Test Item Value Reference Range Interpretation [...] (test code = LDL/HDL) Ratio See_Comment [Automated Exabeama ge] The system which generated this result transmitted reference range: 1.48-3.22 Avg. The reference range was not used to interpret this result as normal/abnormal. [id number] 05:38:00* Test Item Value Reference Range Interpretation Comme nts MAGNESIUM (test code = MAG) MG/DL 1.6-2.6 GLYCOSYLATED HEMOGLOBIN (HA1C)2020-11-30 05:21:00* Test Item Value Reference Range Interpretation Comme nts GLYCOSYLATED HEMOGLOBIN (HA1 C) (test code = GLYHGB) 5.9 % IS-A1C 4.5-5.6 H Specimen comments: use blood sample in the labComments to Operator Supply: use blood sample in the labCBC W/AUTO [id number] 05:12:00* Test Item Value Reference Range Interpretation [...] code = NRBC#) 0.00 K/mm3 0.00-0.05 N [id number] 00:17:00* Test Item Value Reference Range Interpretation Comme nts CKMB (test code = CKMBT) 1.4 NG/ML 1.0-3.6 N MONOCLONAL CKMB METHODOLOGY. [id number] 00:17:00* Test Item Value Reference Range Interpretation [...] of temporal changes in troponin levelscharacteristic of PR. [id number] 23:57:00* Test Item Value Reference Range Interpretation Comme [facility] CKMB (test code = CKMBT) NG/ML 1.0-3.6 [id number] 23:57:00* Test Item Value Reference Range Interpretation Comme [facility] TROPONIN-I (test code [...] of temporal changes in troponin levelscharacteristic of PR. GLUCOSE BEDSIDE [id number] 20:50:00* Test Item Value Reference Range Interpretation Comme [facility] GLUCOSE BEDSIDE TESTING (cathy t code = GLUBED) 126 MG/DL 70-119 H [id number] 20:10:00* Test Item Value Reference Range Interpretation Comme nts CKMB (test code = CKMBT) 1.6 NG/ML 1.0-3.6 N MONOCLONAL CKMB METHODOLOGY. [id number] 20:10:00* Test Item Value Reference Range Interpretation [...] of temporal changes in troponin levelscharacteristic of PR. [id number] 19:57:00* Test Item Value Reference Range Interpretation Comme nts CKMB (test code = CKMBT) NG/ML 1.0-3.6 [id number] 19:57:00* Test Item Value Reference Range Interpretation Comme [facility] TROPONIN-I (test code [...] of temporal changes in troponin levelscharacteristic of PR. COVID 19 Asymptomatic IH [id number] 18:32:00* Test Item Value Reference Range Interpretation Comme nts COVID 19 Asymptomatic IH AG (test code = COVNONPUIAG) Negative Neg - CT ANGIO [id number] 17:08:00 [facility] : 1965 Sex: M Patient Name: BRYAN PARADA Unit No: [id number] EXAMS: CPT CODE: [id number] CT ANGIO HEAD [address] Dictation location: H37. CT ANGIOGRAM OF THE NECK AND HEAD WITH IV CONTRAST; MIP AND 3-D RECONSTRUCTIONS HISTORY: Left sided weakness COMPARISON: None TECHNIQUE: Axial CT images of the neck and head were obtained with coronal and/or sagittal reformatted views. MIP and/or 3-D reconstruction were obtained o f the carotid arteries in the neck and point lay ira of [place]. Automated exposure control, iterative reconstruction [...] is limited. No definite occlusion or aneurysm. [facility] NAME: BRYAN PARADA [address] [place] [address] PHYS: ARVIN. - Chuckie Olmos, [place] [address] : 1965 AGE: 54 SEX: M LOC: AleshiaERS PHONE #: [phone] EXAM DATE: 11/29/2020 STATUS: REG ER FAX #: [phone] RAD #: D/C DT PAGE 1 Signed Report (CONTINUED) Patient Name: BRYAN PARADA Unit No: [id number] EXAMS: CPT CODE: [id number] CT ANGIO HEAD [address] <Continued> at 1708 Reported and signed by: Uriah Moran MD CC: Chuckie Olmos DO Dictated Date/Time: 11/29/2020 (170) Technologist: Luisana Mederos CTDI: 73.04 DLP: 2043.21 Trnscrpt: 11/29/2020 (1707) VikramUZ21CNNISHANEL Chamorro NAME: [address] PHYS: RADAMES [place] [address] : 1965 AGE: 54 SEX: M LOC: AleshiaERS PHONE #: [phone] EXAM DATE: 11/29/2020 STATUS: REG ER FAX #: [phone] RAD #: D/C DT PAGE 2 Signed Report Patient Name: BRYAN PARADA Unit No: [id number] EXAMS: CPT CODE: [id number] CT ANGIO HEAD [address] <Continued> Orig Print D/T: S: 11/29/2020 (171) EMILY Chamorro NAME: [address] PHYS: RADAMES NickolasChuckie CroninApril [place] [address] : 1965 AGE: 54 SEX: M LOC: Coy.ERS PHONE #: [phone] EXAM DATE: 11/29/2020 STATUS: REG ER FAX #: [phone] RAD #: D/C DT PAGE 3 Signed Report- CT ANGIO NECK 2020-11-29 17:08:00 [facility] : 1965 Sex: M Patient Name: BRYAN PARADA Unit No: [id number] EXAMS: CPT CODE: [id number] CT ANGIO NECK [address] Dictation location: H37. CT ANGIOGRAM OF THE NECK AND HEAD WITH IV CONTRAST; MIP AND 3-D RECONSTRUCTIONSHISTORY: Left sided weakness COMPARISON: None TECHNIQUE: Axial CT images of the neck and head were obtained with coronal and/or sagittal reformatted views. MIP and/or 3-D reconstruction were obtainedof the carotid arteries in the neck and point lay ira of [place]. Automated exposure control, iterative reconstruction [...] limited. No definite occlusion or aneurysm. EMILY YateseNAME: T[address] PHYS: RADAMES - [place] [address] : 1965 AGE: 54 SEX: M LOC: B.ERS PHONE #: [phone] EXAM DATE: 11/29/2020 STATUS: REG ER FAX #: [phone] RAD #: D/C DT PAGE 1 Signed Report (CONTINUED) Patient Name: BRYAN PARADA Unit No: [id number] EXAMS: CPT CODE: [id number] CT ANGIO NECK [address] <Continued> at 1708 Reported and signed by: Uriah Moran MD CC: Chuckie Olmos DO Dictated Date/Time: 11/29/2020 (1708) Technologist: Luisana Mederos CTDI: 0 DLP: 0 Trnscrpt: 11/29/2020 (1708) tKATELINR.SP17 EMILY Chamorro NAME: [address] PHYS: RADAMES - [place] [address] : 1965 AGE: 54 SEX: M LOC: B.ERS PHONE #: [phone] EXAMDATE: 11/29/2020 STATUS: REG ER FAX #: [phone] RAD #: D/C DT PAGE 2 Signed Report Patient Name: BRYAN PARADA Unit No: [id number] EXAMS: CPT CODE: [id number] CT ANGIO NECK [address] <Continued> Orig Print D/T: S: 11/29/2020 (1711) EMILY Chamorro NAME: [address] PHYS: Chuckie BenjaminApril [place] [address] : 1965 AGE: 54 SEX: M LOC: LISA PHONE #: [phone] EXAM DATE: 11/29/2020 STATUS: REG ER FAX #: [phone] RAD #: D/C DT PAGE 3 Signed Report - XR CHEST 1 [id number] 11:48:[address] [facility] 1965 Sex: M Name: BRYAN PARADA [facility] : 1965 Age/S: 54 / M [address] [address] Unit #: [id number] Loc: [place] [address] Phys: Maximino Ham MD Acct: [id number] Dis Date: Status: [facility] ER PHONE #: [phone] Exam Date: 11/29/2020 1107 FAX #: Reason: chest pain, stroke symptoms EXAMS: CPT: [id number] XR CHEST 1 V 14183 Fluoro Time: DAP (Gy m2): Air Kerma [...] PAGE 1 Signed Report Name: BRYAN PARADA [facility] : 1965 Age/S: 54 / M [address] [address] Unit #: [id number] Loc: [place] [address] Phys: Maximino Ham MD Acct: [id number] Dis Date: Status: REG ER PHONE #: [phone] Exam Date: 11/29/2020 1108 FAX #: Reason: chest pain, stroke symptoms EXAMS: CPT: [id number] XR CHEST 1 V 37871 Fluoro Time: DAP (Gy m2): Air Kerma (mGy): (Continued) Technologist: Bandar Tirado RT(R)(CT) Trnscb Date/Time: 11/29/2020 (1148) t.SYEDR.ANS4 Orig Print D/T: S: 11/29/2020 (1152) PAGE 2 Signed Report- CT ABD PELVIS W/[id number] 11:20:[address] [facility] 1965 Sex: M Name: BRYAN PARADA [facility] : 1965 Age/S: 54 / M [address] [address] Unit #: [id number] Loc: [place] [address] Phys: Maximino Ham MD Acct: [id number] Dis Date: Status: REG ER PHONE #: [phone] Exam Date: 11/29/2020 1046 FAX #: Reason: rule out dissection EXAMS: CPT: [id number] CT ABD PELVIS W/CONT 13330 LOCATION: T18 EXAM: CT CHEST WITH CONTRAST [...] areas of peripheral subsegmental atelectasis in the leftupper lobe noted. Lungs are otherwise clear. Liver [...] 1 Signed Report (CONTINUED) Name: BRYAN PARADA [place] : 1965 Age/S: 54 / M [address] [address] #: [id number] Loc: [place] [address] Phys: Maximino Ham MD Acct: [id number] Dis Date: Status: REG ER PHONE #: [phone] Exam Date: 11/29/2020 1044 FAX #: Reason: rule out dissection EXAMS: CPT: [id number] CT ABD PELVIS W/CONT 18381 (Continued) at 1120 Reported and signed by: Bill Lake M.D. CC: Maximino Ham MD Technologist:Gala Menard, RT(R); Shahnaz CTDI: DLP: Trnscb Date/Time: 11/29/2020 (1120) VikramJP19 Orig Print D/T: S: 11/29/2020 (1128) PAGE 2 Signed Report- CT CHEST W/GXVCMFZY0698-11-60 11:20:[address] [facility] 1965 Sex: M Name: BRYAN PARADA [facility] : 1965 Age/S: 54 / M [address] [address] Unit #: [id number] Loc: [place] [address] Phys: Maximino Ham MD Acct: [id number] Dis Date: Status: REG ER PHONE #: [phone] Exam Date: 11/29/2020 1056 FAX #: Reason: rule out dissection EXAMS: CPT: [id number] CT CHEST W/CONTRAST 23554 LOCATION: T18 EXAM: CT CHEST WITH CONTRAST [...] Signed Report (CO NTINUED) Name: BRYAN PARADA [facility] : 1965 Age/S: 54 / M [address] [address] Unit #: [id number] Loc: [place] [address] Phys: Maximino Ham MD Acct: [id number] Dis Date: Status: REG ER PHONE #: [phone] Exam Date: 11/29/2020 1056 FAX #: Reason: rule out dissection EXAMS: CPT: [id number] CT CHEST W/CONTRAST 88657 (Continued) at 1120 Reported and signed by: Bill Lake M.D. CC: Maximino Ham MD Technologist:Gala Menard, RT(R); Shahnaz CTDI: DLP: Trnscb Date/Time: 11/29/2020 (1120) [email or web address] Orig Print D/T: S: 11/29/2020 (1123) PAGE 2 Signed Report- CT HEAD/BRAIN W/O [id number] 11:15:[address] : 1965 Sex: M Name: BRYAN PARADA : 1965 Age/S: 54 / M [id number] [address] Unit #: [id number] Loc: [place] [address] Phys: Maximino Ham MD Acct: [id number] Dis Date: Status: REG ER PHONE #: [phone] Exam Date: 11/29/2020 1045 FAX #: Reason: CVA symptoms EXAMS: CPT: [id number] CTHEAD/BRAIN W/O CONT 78097 EXAM: - CT HEAD/BRAIN W/O CONT INDICATION: [...] Trnscb Date/Time: 11/29/2020 (1115) [email or web address] Orig Print D/T:S: 11/29/2020 (1118) PAGE 1 Signed ReportCOMPREHENSIVE METABOLIC [id number] 10:03:00* Test Item Value Reference Range Interpretation [...] 65 Unit/L 50-136 N Completed by Nursing: [id number] 10:03:00* Test Item Value Reference Range Interpretation [...] varyby method. Completed by Nursing: NOCBC W/AUTO [id number] 09:45:00* Test Item Value Reference Range Interpretation [...] up. Pt lives all the way in [facility]. Sw is coordinating with Medicaid to see if they can cover his ride back home. in the event they are not able to cover his ride back home [facility] will provide Lyft voucher. [facility] 2024-09-20 17:14:18 Associated Order(s): CONSULT CARDIOLOGY Patient was already discharged when I went to see him. [facility] [employer] 2024-08-11 14:57:34 Associated Order(s): CONSULT WOUND, OSTOMY, OR CONTINENCE CARE TEAM NURSING WOUND CARE EVALUATION CC: Consult for evaluation of: Please give recommendation or opinion on Left chest wall wound at PPM site . Pertinent PMH: Past Medical History: [...] progressing towards healing within one week Denis GODOY RN CBRN CWOCN- under the direct supervision of Ludy Tirado RN Ludy Tirado BSN RN CWOCN Wound Ostomy Continence Nurse Adult Patient Care Services [phone] M [phone] S BACK COUNTER MAN Denis Owusu RN [facility] 2024-08-11 14:24:40 Associated Order(s): CONSULT CARDIAC ELECTROPHYSIOLOGY EP Cardiology Consult Note Date of Service: 08/11/2024 14:49 Time: 2:25 PM Service: CCU Chief Complaint: Chest pain Reason for consult: Aflutter. History of Present Illness: Bryan Parada is a 58 year old male with a PMH of T2DM (A1c 5.9 07/2024), HTN, HLD, obesity, pAfib on Eliquis (CHADSVASC 6), Chronic combined HFrEF s/p IMMIGRATION JUDGE-D (5-10%, NICM) class IVC, CKD 3, CVA (cardioembolic 2021), gout, NOCAD (2019), and PRAVEEN on CPAP who presents as transfer from [facility] for aflutter, on Amio gtt, and currently in NSR. EKG on admission showed V paced rhythm with Atrial flutter. Discussed treatment strategies for Aflutter, and pt would like to proceed with ablation. Device interrogation showed normal functioning IMMIGRATION JUDGE-D with V Pacing 88% and AT/AF burden [...] N/A 02/19/2017 Surgeon: Fran Canchola MD; Location: [facility] OR [facility] ESOPHAGOGASTRODUODENOSCOPY N/A 07/20/2019 Surgeon: Maddi Ballesteros MD; Location: [facility] OR Location ESOPHAGOGASTRODUODENOSCOPY N/A 04/03/2021 Surgeon: Fran [...] History Narrative Lives in an apt in [place], [place] himself. Social Determinants of Health Financial [...] QHS, Estefani Dillon MD, 80 mg at 08/10/242135 busPIRone (BUSPAR) tablet 5 mg, 5 mg, [...] Typical Atrial Flutter Chronic combined HFrEF s/p IMMIGRATION JUDGE-D (5-10%, NICM) class IVC T2DM (A1c 5.9 07/2024) || HTN || HLD Obesity pAfib on Eliquis (CHADSVASC 6) CKD 3 CVA (cardioembolic 2021) Gout PRAVEEN on CPAP Presents as transfer from [facility] for aflutter, on Amio gtt, and currently in NSR. EKG on admission showed V paced rhythm with Atrial flutter. Discussed treatment strategies for Aflutter, and pt would like to proceed with ablation. Device interrogation showed normal functioning IMMIGRATION JUDGE-D with V Pacing 88% and AT/AF burden [...] additional queries or concerns. Kumar Marquez MD [place], PGY-5 #[id number] S BACK COUNTER MAN Associated attestation - Akhil Barriga MD - 08/15/2024 7:40 AM PARTS BACK COUNTER MAN Addendum Note from Cardiac Electrophysiology Attending: After discussion with it service technician/resident, I examined this patient on the date [...] Akhil Barriga MD Cardiac Electrophysiology CARDIOVASCULAR DISEASE [facility] Health 2024-08-10 08:36:28 Associated Order(s): CONSULT CARDIOLOGY [facility] Cardiology Consult PCP: Kim Jones Date of Service: 08/10/2024 CHIEF COMPLAINT/reason for consult: Atrial flutter History of Present Illness Bryan Parada is a 58 years old male with PMH DM, HTN, HLD, obesity, pAfib, HFrEF s/p IMMIGRATION JUDGE-D and PRAVEEN. He has been followed by [facility] cardiology with extensive cardiac workup. He has been admitted multiple times with hypertensive urgency and chest pain. LHC in 07/2020 showed no significant CAD. He underwent IMMIGRATION JUDGE-D. He was admitted to [facility] in 10/2021 for acute ischemic stroke deemed to be secondary to Afib. Eliquis was started. On May 28, 2022 he underwent right heart cath and successful placement of CardioMEMS heart failure monitor device in the left pulmonary artery. Right heart cath showed elevated filling pressures and pulmonary pressure. This time he presented to [facility] with chest pain and palpitations. He was [...] N/A 02/19/2017 Surgeon: Fran Canchola MD; Location: [facility] OR Location ESOPHAGOGASTRODUODENOSCOPY N/A 07/20/2019 Surgeon: Maddi Ballesteros MD; Location: [facility] OR Location ESOPHAGOGASTRODUODENOSCOPY N/A 04/03/2021 Surgeon: Fran [...] History Narrative Lives in an apt in [place], [place] himself. Social Determinants of Health Financial [...] 131/107 Pulse: 70 76 70 71 Resp: 20 17 11 17 Temp: 36.6 ?C (97.9 ?F) 36.5 [...] PRAVEEN on CPAP Cardiac resynchronization therapy defibrillator (IMMIGRATION JUDGE-D) in place Dyslipidemia Noncompliance PAF (paroxysmal atrial fibrillation) History of cerebrovascular accident (CVA) with residual deficit Chest pain, unspecified type Troponin I above reference range Obesity (BMI 30-39.9) Atrial flutter Atrial flutter-this is a new diagnosis. Currently still in atrial flutter despite intravenous amiodarone. Given LVEF 5 to 10%, rhythm control is preferred. He is quite symptomatic. Recommend transferring to main campus for EP consultation. Due to operating room remodeling, [facility] cannot sterilize transesophageal echo probe and cannot [...] Morbid obesity--discussed diet and weight loss. S/p IMMIGRATION JUDGE-D. Thank you for allowing us to participate in the care of your patient. Please feel free to contact us for any questions or if we can be of further assistance. Cornelia Sanderson MD, FACC, [employer] Java Systems Analyst Division of Cardiovascular Medicine [facility] 2024-07-21 09:45:00 Associated Order(s): CONSULT ADULT PHYSICAL [...] N/A 02/19/2017 Surgeon: Fran Canchola MD; Location: [facility] OR [facility] ESOPHAGOGASTRODUODENOSCOPY N/A 07/20/2019 Surgeon: Maddi Ballesteros MD; Location: [facility] OR [facility] ESOPHAGOGASTRODUODENOSCOPY N/A 04/03/2021 Surgeon: Fran Trinh [...] before and after session COMMUNICATION Primary Language: Marshallese Able to Verbalize needs: Yes Vision:good; no [...] Minutes: 20 min Kamari Burciaga PT, DPT [facility] Physical Therapy Rehabilitation Services A physical [...] An evolving clinical presentation with changing characteristics S BACK COUNTER MAN Kamari Burciaga PT [facility] 2024-07-04 07:48:34 Associated Order(s): CONSULT CARDIOLOGY [facility] Cardiology Consult Note Patient: Bryan Scales Date of : 1965 Primary Care Physician: [...] state compliance with medication states he has [facility] home health coming to assist him with [...] 06/2022 and has been residing in a group home facility since then. His recent hospitalization in [...] reviewed. Since then patient been discharged to group home. Since then no readmission noted in the hospital. Admitted 04/23/2022 for atypical chest pain. Noted to have hypertensive urgency at that time. Admitted 04/01/2022 for acute diverticulitis. GI bleeding noted. Presented to ER 03.17.2022 for atypical chest pain Seen in [facility] 03.06.2022 for atypical chest pain/mild elevated troponins. Presented to ER . for chest pain/DELGADO. Work-up was unremarkable. Elevated troponins noted chronically elevated/stable. Subsequent to which was admitted back 02/15/2022 for chest pain/elevated hypertension. Due to lack of beds in [facility], patient was transferred to [facility]. Was admitted to the heart failure team. DC summary dated reviewed. Amlodipine 5 mg daily was started but upon medication review today 02/26/2022 he has not picked up the prior medicine yet. He is going to orange picker machine operator the medicine by end of [...] updated in the OCT. Patient reports currently [facility] Home health nurse coming to his home. Presented to the ER 01/21/2022 for evaluation of atypical chest pain/not feeling well. Seen by [facility] heart failure clinic 12/27/2021. Dose of spironolactone was increased to 50 mg daily. Admission noted 01/01/2022 for atypical chest pain. Admitted 10/24/2021 to 10/26/2021: elevated troponin. Admitted and DC'd on .: Presented with chest pain with elevated blood pressure. Elevated BNP noted. Admitted 10/06/2021 and DC'd on 10/08/2021 for elevated troponin/heart failure. Admitted 10/02/2021 and DC'd on 10/03/2021 from [facility]. Noted to have acute right-sided MCA territory infarct. Left-sided weakness. Seen by neurology in [facility]. Started on Eliquis 5 mg twice [...] of his medications. Since her discharge from [facility] 08/27/2021, patient was readmitted back in the hospital 08/28/2021. Transferred to [facility]. Seen by heart failure team at that [...] assisted diuresis. 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 Slowly and gradually dopamine was weaned [...] 02/24/2021: For atypical chest pain/hypertension. Admitted in [facility] 01/2021. He reports that he was admitted for CVA. Reports having receiving TPA. And then admitted in the hospital closely for few days. [facility] records reviewed. Admitted on 01/03/2021. Patient was [...] Patient report that he presented to the [facility] for chest discomfort . Discharge summary dated from 12/05/2020 from [facility] was reviewed. Patient was admitted for evaluation [...] upper respiratory weakness. Patient was sent to [facility]. Was seen by neurology. Per the discharge summary patient was started on Eliquis 5 mg twice daily. Primary diagnosis of acute CVA noted in the discharge summary. Neurology consult note during that admission was reviewed. Neurology also recommended starting Eliquis 5 mg twice daily. 10/12/2020: Admitted for elevated blood pressure/atypical chest pain. 10/02/2020 again admitted for atypical chest pain/hypertensive emergency 09/22/2020 admitted in [facility] for hypertensive urgency again 07/2020, he was admitted in [facility] between 07/30/2020 and discharged on 08/09/2020. During [...] N/A 02/19/2017 Surgeon: Fran Canchola MD; Location: [facility] OR [facility] ESOPHAGOGASTRODUODENOSCOPY N/A 07/20/2019 Surgeon: Maddi Ballesteros MD; Location: [facility] OR [facility] ESOPHAGOGASTRODUODENOSCOPY N/A 04/03/2021 Surgeon: Fran Trinh [...] History Narrative Lives in an apt in [place], [place] himself. Social Determinants of Health Financial [...] 40 mg, 40 mg, Oral, TID, Criss eLyva DO gabapentin (NEURONTIN) capsule 100 mg, 100 mg, Oral, TID, Bj Weiss MD, 100 mg at 07/03/241943 glucagon HCL injection 1 mg, 1 mg, Intramuscular, PRN, Bj Weiss MD heparin (1,000 unit/mL, 10 mL vial) for Rebolusing, 3,000-5,000 Units, Slow IV Push, FOR REBOLUSING, Michelle Miranda MD heparin (porcine) injection 5,000 Units, 5,000 Units, Subcutaneous, Q8H, Autumn, Criss, DO, 5,000 Units at 07/04/24 0555 HYDROcodone-acetaminophen [...] disease Heart block Cardiac resynchronization therapy defibrillator (IMMIGRATION JUDGE-D) in place Dyslipidemia Noncompliance PAF (paroxysmal atrial [...] and again by cath 12/2020 done in [facility]. Continue aspirin 81 daily. Elevated troponins: [...] and again by cath 12/2020 done in [facility]. Echocardiogram dated 02/17/2022 images reviewed shows [...] Secondary HTN work up done by outside [facility] nephrology was negative. Chronic systolic diastolic heart [...] to avoid hospital readmissions while in a group home due to compliance with medications, salt intake, and fluid restrictions. Since his discharge, he has had one hospital admission. If readmissions continue, returning to a group home may be considered to ensure compliance with [...] the recent admission 06/2022. Currently in the group home. Initially on wheelchair today. Currently using cane. [...] hospital admission upon getting discharged from the group home. History of PAF: Currently on Eliquis 5 [...] History of PRAVEEN: Recommend to follow-up with [facility] sleep clinic. Sleep study 12.21.2021 reviewed which [...] Ordering referrals and/or communicating with other health career professional (when not separately reported), Documenting clinical information in the electronic or other health record, and Independently interpreting results (not separately reported) and/or communicating results to the patient/family/caregiver. Keep up with basic health maintenance including an annual physical examination with your primary physician, appropriate vaccinations (influenza, pneumonia, new shingles vaccination), and other appropriate testing (e.g. EGD, colonoscopy etc). This report was dictated using [employer] and is subject to voice recognition errors. [...] in the answers given. Huy Ladd MD It Applications Developer, Division of Cardiology [facility] S BACK COUNTER MAN [facility] [employer] 2024-05-17 15:29:20 Associated Order(s): CONSULT GERONTOLOGICAL NURSE PRACTITIONER-ADULT Arrangements made with SHERRI ELDER per [facility]. [facility]: [phone] MATIAS Mitchell Mandrel Puller - Care Management [facility] [phone] [email or web address] [employer] 2024-05-15 09:41:50 Associated Order(s): CONSULT CARDIOLOGY 2 [facility] Cardiology Consult Note Patient: Bryan Parada Date of : 1965 Primary Care Physician: Brooks Barker History of Present Illness: Bryan Parada is a 57 year old male presented to ER for evaluation for chest pain/shortness of breath. History from the patient himself. Pertinent cardiac history reviewed from the chart. History from the patient. Patient is here alone. Currently in [facility]. 05/15/2024 Presented to ER with chest pain [...] 06/2022 and has been residing in a group home facility since then. His recent hospitalization in [...] noted 05/09/2022 and 05/11/2022. Admitted in the [facility] 05/11/2022 until 05/22/2022. Noted to have acute [...] reviewed. Since then patient been discharged to group home. Since then no readmission noted in the [...] hypertension. Due to lack of beds in [facility], patient was transferred to [facility]. Was admitted to the heart failure team. DC summary dated reviewed. Amlodipine 5 mg daily was started but upon medication review today 02/26/2022 he has not picked up the prior medicine yet. He is going to orange picker machine operator the medicine by end of [...] updated in the MAR. Patient reports currently [facility] Home health nurse coming to his home. Presented to the ER 01/21/2022 for evaluation of atypical chest pain/not feeling well. Seen by [facility] heart failure clinic 12/27/2021. Dose of spironolactone was increased to 50 mg daily. Admission noted 01/01/2022 for atypical chest pain. Admitted 10/24/2021 to 10/26/2021: elevated troponin. Admitted and DC'd on .: Presented with chest pain with elevated blood pressure. Elevated BNP noted. Admitted 10/06/2021 and DC'd on 10/08/2021 for elevated troponin/heart failure. Admitted 10/02/2021 and DC'd on 10/03/2021 from [facility]. Noted to have acute right-sided MCA territory infarct. Left-sided weakness. Seen by neurology in [facility]. Started on Eliquis 5 mg twice [...] of his medications. Since her discharge from [facility] 08/27/2021, patient was readmitted back in the hospital 08/28/2021. Transferred to [facility]. Seen by heart failure team at that [...] assisted diuresis. 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 Slowly and gradually dopamine was weaned [...] 02/24/2021: For atypical chest pain/hypertension. Admitted in [facility] 01/2021. He reports that he was admitted for CVA. Reports having receiving TPA. And then admitted in the hospital closely for few days. [facility] records reviewed. Admitted on 01/03/2021. Patient was [...] blood pressure. Sent to the ER from community health due to elevated blood pressure. Medication was adjusted in the ER with recent blood pressure not better hence he was discharged from the hospital. Patient report that he presented to the [facility] for chest discomfort . Discharge summary dated from 12/05/2020 from [facility] was reviewed. Patient was admitted for evaluation [...] upper respiratory weakness. Patient was sent to [facility]. Was seen by neurology. Per the discharge summary patient was started on Eliquis 5 mg twice daily. Primary diagnosis of acute CVA noted in the discharge summary. Neurology consult note during that admission was reviewed. Neurology also recommended starting Eliquis 5 mg twice daily. 10/12/2020: Admitted for elevated blood pressure/atypical chest pain. 10/02/2020 again admitted for atypical chest pain/hypertensive emergency 09/22/2020 admitted in [facility] for hypertensive urgency again 07/2020, he was admitted in [facility] between 07/30/2020 and discharged on 08/09/2020. During [...] N/A 02/19/2017 Surgeon: Fran Canchola MD; Location: [facility] OR Location ESOPHAGOGASTRODUODENOSCOPY N/A 07/20/2019 Surgeon: Maddi Ballesteros MD; Location: [facility] OR Location ESOPHAGOGASTRODUODENOSCOPY N/A 04/03/2021 Surgeon: Fran [...] History Narrative Lives in an apt in [place], [place] himself. Social Determinants of Health Financial [...] tablet 81 mg, 81 mg, Oral, DAILY, Yaerd Larios MD, 81 mg at 05/15/24 0843 [...] disease Heart block Cardiac resynchronization therapy defibrillator (IMMIGRATION JUDGE-D) in place Dyslipidemia Noncompliance PAF (paroxysmal atrial fibrillation) History of cerebrovascular accident (CVA) with residual deficit Chest pain Chronic combined systolic and diastolic congestive heart failure Troponin I above reference range SOB (shortness of breath) Presence of cardiac resynchronization therapy defibrillator (IMMIGRATION JUDGE-D) Morbid obesity Assessment & Plan Hypertension urgency: [...] Secondary HTN work up done by outside [facility] nephrology was negative. Chronic systolic diastolic heart [...] to avoid hospital readmissions while in a group home due to compliance with medications, salt intake, and fluid restrictions. Since his discharge, he has had one hospital admission. If readmissions continue, returning to a group home may be considered to ensure compliance with [...] and again by cath 12/2020 done in [facility]. Continue aspirin 81 daily. Elevated troponins: [...] and again by cath 12/2020 done in [facility]. Echocardiogram dated 02/17/2022 images reviewed shows [...] the recent admission 06/2022. Currently in the group home. Initially on wheelchair today. Currently using cane. [...] is planned to get discharged from the group home looking for apartment outside. Strongly recommended my concern that regarding his recurrent hospital admission upon getting discharged from the group home. History of PAF: Currently on Eliquis 5 [...] T2DM: Follows PCP. Last Two A1C Results ([facility]/, [facility], [place]) Recent Labs 08/27/23 0720 12/08/23 0610 HGBA1C 6.4* 6.1* History of PRAVEEN: Recommend to follow-up with [facility] sleep clinic. Sleep study 12.21.2021 reviewed which [...] Ordering referrals and/or communicating with other health career professional (when not separately reported), Documenting clinical information in the electronic or other health record, and Independently interpreting results (not separately reported) and/or communicating results to the patient/family/caregiver. Keep up with basic health maintenance including an annual physical examination with your primary physician, appropriate vaccinations (influenza, pneumonia, new shingles vaccination), and other appropriate testing (e.g. EGD, colonoscopy etc). This report was dictated using [employer] and is subject to voice recognition errors. [...] in the answers given. Huy Ladd MD It Applications Developer, Division of Cardiology [facility] 2024-04-06 10:30:31 Associated Order(s): CONSULT GERONTOLOGICAL NURSE PRACTITIONER-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 Pt will dc home today.. MATIAS Mitchell Mandrel Puller - Care Management [facility] [phone] [email or web address] 2024-04-05 08:34:53 Associated Order(s): CONSULT CARDIOLOGY [facility] Cardiology Consult PCP: Kim Jones Date of Service: 04/05/2024 CHIEF COMPLAINT/reason for consult: Chest pain and heart failure History of Present Illness This is a 58 years old male with PMH DM, HTN, HLD, obesity, pAfib, HFrEF s/p IMMIGRATION JUDGE-D and PRAVEEN. He has been followed by [facility] cardiology with extensive cardiac workup. He has been admitted multiple times with hypertensive urgency and chest pain. LHC in 07/2020 showed no significant CAD. He underwent IMMIGRATION JUDGE-D. He was admitted to [facility] in 10/2021 for acute ischemic stroke deemed to be secondary to Afib. Eliquis was started. On May 28, 2022 he underwent right heart cath and successful placement of CardioMEMS heart failure monitor device in the left pulmonary artery. Right heart cath showed elevated filling pressures and pulmonary pressure. This time he presented to [facility] with chest pain and dyspnea. He left alf facility and now stays home. Chest x-ray [...] N/A 02/19/2017 Surgeon: Fran Canchola MD; Location: [facility] OR Location ESOPHAGOGASTRODUODENOSCOPY N/A 07/20/2019 Surgeon: Maddi Ballesteros MD; Location: [facility] OR Location ESOPHAGOGASTRODUODENOSCOPY N/A 04/03/2021 Surgeon: Fran [...] History Narrative Lives in an apt in [place], [place] himself. Social Determinants of Health Financial [...] 72 67 65 68 Resp: 24 18 20 16 Temp: 36.2 ?C (97.1 ?F) 36.1 [...] emergency Presence of cardiac resynchronization therapy defibrillator (IMMIGRATION JUDGE-D) Morbid obesity Acute on chronic HFrEF--CXR showed [...] Morbid obesity--discussed diet and weight loss. S/p IMMIGRATION JUDGE-D. Thank you for allowing us to participate in the care of your patient. Please feel free to contact us for any questions or if we can be of further assistance. Cornelia Sanderson MD, [facility], NE[employer] Java Systems Analyst Division of Cardiovascular Medicine [facility] T [facility] - Health History and Physical Notes Date/Time Note Provider Source 2024-10-01 09:44:09 [facility] Cardiac IMU Admission History & Physical Date of Service: 10/01/2024 Time: 9:44 AM Patient's Name: Yunier Puente Patient's Patient's : Date of Admission: 09/30/2024 Problem List Active Problems: There are no active Hospital Problems. Assessment & Plan Assessment Yunier Puente (real name Bryan Parada ) is a 58 year old male with PMHx of chronic combined HFrEF (5-10%, s/p IMMIGRATION JUDGE-D), NICM (nonobstructive cath 2019), afib (on Eliquis), [...] SBP 160s. Cardiovascular: #HFrEF (EF 5-10%) s/p IMMIGRATION JUDGE-D #NICM #HTN #HLD #Atrial Fibrillation - Multiple prior caths - Previously had cardiomems - IMMIGRATION JUDGE-D placed (gen change 07/2024) - [place] Stress 2016: nonischemic - [facility] 2019: nonobstructive - [facility] 2023: RA mean 6mmHg RV 37/10 mmHg [...] details and final recommendations. Chalino Costello MD Critical access hospital | [facility] Internal Medicine, PGY-2 9:44 AM 10/01/24 Reason for CCU Admission: HF exacerbation, chest pain History Obtained From: Patient Patient identified with 2 identifiers: Name/MRN History of Present Illness Yunier Puente (real name Bryan Parada ) is a 58 year old male with PMHx of chronic combined HFrEF (5-10%, s/p IMMIGRATION JUDGE-D), NICM (nonobstructive cath 2019), afib (on Eliquis), [...] weeks and was seen by his outpatient recycling crew supervisor Dr. Tiffany Arelalno ([facility]) on 09/29/24. No changes were made to [...] 09/30/2024 CT ANGIOGRAM CHEST - AORTA 09/30/2024 [facility] Social History: Social History Substance and [...] sagittal images, including MIPS, are provided. FINDINGS: Marketing Finance Manager: Noncontributory. VASCULAR: Aorta: No aneurysm, dissection, penetrating [...] Milan Valverde MD at 10/02/2024 12:03 AM PARTS BACK COUNTER MAN S BACK COUNTER MAN S BACK COUNTER MAN Associated attestation - Milan Valverde MD - 10/02/2024 12:03 AM PARTS BACK COUNTER MAN The patient was seen and examined with the resident and/or fellow. The relevant lab results, imaging and EKGs were personally reviewed, and the medications were reconciled. I agree with above mentioned assessment and plan. Annika Fry 2024-08-18 22:41:00 [facility] Hospitalist Admission H&P Date of Service: 08/18/2024 [...] Patient's troponin was significantly elevated bated. Patient p has a significant cardiomyopathy and will be [...] N/A 02/19/2017 Surgeon: Fran Canchola MD; Location: [facility] OR Location ESOPHAGOGASTRODUODENOSCOPY N/A 07/20/2019 Surgeon: Maddi Ballesteros MD; Location: [facility] OR Location ESOPHAGOGASTRODUODENOSCOPY N/A 04/03/2021 Surgeon: Fran [...] History Narrative Lives in an apt in [place], [place] himself. Social Determinants of Health Financial [...] acute cardiopulmonary finding. 2. Stable cardiomegaly. RL: 5181 End of Report SSMENT: 1. NSTEMI in [...] given high risk of morbidity and mortality. [place] ASSISTANT PROFESSOR OF ART was verified during stay Yared Larios MD [facility] 2024-08-10 21:04:30 [facility] CCU Admit H&P PCP: Brooks Barker Date of Service: 08/10/2024 CHIEF COMPLAINT: Chest pain HISTORY OF PRESENT ILLNESS Bryan Parada is a 58 year old male with a PMH of T2DM (A1c 5.9 07/2024), HTN, HLD, obesity, pAfib on Eliquis (CHADSVASC 6), Chronic combined HFrEF s/p IMMIGRATION JUDGE-D (5-10%, NICM) class IVC, CKD 3, CVA (cardioembolic 2021), gout, NOCAD (2019), and PRAVEEN on CPAP who presents as transfer from [facility] for aflutter. Patient reports yesterday his home health nurse [...] Transferred due remodeling of JOSE room at [facility], so could not perform DCCV there. Past [...] Brand per Insurance 1 Kit 0 Lancets [facility] Check sugars 1 times a day. Dx Code E11.9. Brand per insurance. 100 Each 11 REVIEW OF SYSTEMS Per HPI. PHYSICAL EXAMINATION Vitals: 08/10/24 1700 08/10/24 1840 08/10/24 2040 08/10/24 2100 BP: 103/78 119/82 (!) 105/92 99/80 Pulse: 97 70 70 70 Resp: Temp: 36.6 ?C (97.9 ?F) TempSrc: SpO2: [...] pressure is intermediate (~8 mmHg). Cardiac catheterization: [facility]/ selective coronary angiography 08/02/2020 Coronary Dominance: right Left Main: Angiographically normal LAD: Large vessel, Luminal irregularities LCX: Large vessel, Luminal irregularities RCA: Large vessel, Luminal irregularities RHC 07/19/2024 RA mean 6 mmHg RV 37/10 [...] Tachycardia + palpitations 2/2 above Type II PR 2/2 above Chronic combined HFrEF s/p IMMIGRATION JUDGE-D (5-10%, NICM) class IVC, not in acute exacerbation NOCAD (2019) Recent bleeding from pacemaker site HTN HLD Obesity Patient transferred from [facility] for newfound aflutter uncontrolled on amio drip. Hypotensive on presentation so will do A line and consider pressor support, hold toprol. Reason for transfer is due to inability to perform JOSE DCCV at [facility] since the operating room is being remodeled. [...] Pan MD Internal Medicine, PGY-2 Remmers Team S BACK COUNTER MAN Associated attestation - Juan Hernandez MD - 08/11/2024 2:13 PM PARTS BACK COUNTER MAN I personally examined the patient and agree [...] ordering referrals and/or communicating with other health career professional (when not separately reported), documenting clinical information [...] record. JUAN MATHIS MD, MSHA, FAHA, FAC, [facility] Java Systems Analyst Cardiology, Advanced Heart Failure, LVAD & Transplant Service Date of service: 08/10/2024 [facility] 2024-08-09 21:11:38 MEDICINE MEGASC ADMIT H&P Date of Service: 08/09/2024 CHIEF [...] N/A 02/19/2017 Surgeon: Fran Canchola MD; Location: [facility] OR [facility] ESOPHAGOGASTRODUODENOSCOPY N/A 07/20/2019 Surgeon: Maddi Ballesteros MD; Location: [facility] OR Location ESOPHAGOGASTRODUODENOSCOPY N/A 04/03/2021 Surgeon: Fran [...] History Narrative Lives in an apt in [place], [place] himself. Social Determinants of Health Financial [...] arm Pulse: 74 79 78 70 Resp: 20 22 22 17 Temp: 36.7 ?C (98 ?F) 36.8 ?C [...] over diuresis initially. Code Status: Full Code [facility] 2024-07-31 19:01:37 Images from the original note were not included. Joana Rogers ADMIT H&P PCP: Brooks Barker Date of Service: 07/31/2024 CHIEF COMPLAINT: medical care manager problem HISTORY OF PRESENT ILLNESS Bryan Parada is a 58 year old male w PMH of obesity, HTN, DM II, HLD, CAD, NICM, chronic combined CHF s/p AICD, asthma, CKD III who presents for medical care manager problem. Patient presented to [facility] ED for evaluation of his pacemaker incision [...] T 98.1?F, SpO2 98%. Upon arrival to [facility], patient is stable and AxO x4. Patient [...] N/A 02/19/2017 Surgeon: Fran Canchola MD; Location: [facility] OR Location ESOPHAGOGASTRODUODENOSCOPY N/A 07/20/2019 Surgeon: Maddi Ballesteros MD; Location: [facility] OR [facility] ESOPHAGOGASTRODUODENOSCOPY N/A 04/03/2021 Surgeon: Fran Trinh [...] History Narrative Lives in an apt in [place], [place] himself. Social Determinants of Health Financial [...] 07/19/24 Device Characteristics: Device Characteristics: Pulse generator: [employer] Model G247 RA Lead: Biotronik Solia S53, [...] Successful Bi-Ventricular ICD pulse Generator Change Out [facility] 07/19/24 RA mean 6 mmHg RV 37/10 [...] be staffed with day faculty tomorrow. Gian Maddox, Internal Medicine, PGY-2 S BACK COUNTER MAN Associated attestation - Tio Perez MD - 08/01/2024 2:58 PM PARTS BACK COUNTER MAN I agree with the plan as outlined in Dr. Maddox's note dated 07/31/24. I saw and examined the patient with Dr. Webb on 08/01/24. I actively participated in the decision-making process. Please see the note for additional details. Tio Perez MD, MS, [facility], NE[employer]OR It Applications Developer Department of Internal Medicine Division of Cardiovascular Medicine [facility] 2024-07-19 16:26:21 Pre-Procedure Sedation Evaluation H&P from [...] The consent form was completed and signed. S BACK COUNTER MAN Associated attestation - Vernon Weller MD - 07/19/2024 5:05 PM PARTS BACK COUNTER MAN I agree with the note as written Vernon Weller M.D. Interventional Cardiology Pager: [phone] [facility] 2024-07-18 18:15:07 Pre-Procedure Sedation Evaluation H&P [...] completed and signed. José Miguel Arellano MD S BACK COUNTER MAN IM-CLINICAL CARDIAC ELECTROPHYSIOLOGY STAFF [facility] 2024-07-13 17:46:21 [facility] Red Admit H&P PCP: Brooks Barker Date of [...] He also went to his PCP and recycling crew supervisor today and was having trouble walking up [...] pAfib on eliquis HTN Non obstructive CAD 2020 Hx of CVA Patient is presenting from [facility] for a HF exacerbation. He has slight [...] CAD, though last coronary angiography was in 2020. Will trend trop and get EKG. LA [...] none Rebecca Richmond MD 07/13/2024 5:46 PM S BACK COUNTER MAN Associated attestation - Gino Rico MD - 07/14/2024 10:11 PM PARTS BACK COUNTER MAN . [facility] 2024-07-03 23:09:29 Medicine History & Physical [...] state compliance with medication states he has [facility] coming to assist him with his [...] Miranda MD, Last Rate: 10 mL/hr at 07/03/241741, 1,000 Units/hr at 07/03/241741 HYDROcodone-acetaminophen (NORCO 5) tablet 1 tablet, 1 [...] 138/90 Pulse: 92 84 89 76 Resp: 23 27 20 Temp: 36.1 ?C (97 [...] of comfort: N/A Code Status: Full [place] ASSISTANT PROFESSOR OF ART was verified Disposition: Await stability [facility] 2024-05-15 01:18:11 [facility] Hospitalist Admission H&P Date of Service: 05/15/2024 [...] N/A 02/19/2017 Surgeon: Fran Canchola MD; Location: [facility] OR Location ESOPHAGOGASTRODUODENOSCOPY N/A 07/20/2019 Surgeon: Maddi Ballesteros MD; Location: [facility] OR Location ESOPHAGOGASTRODUODENOSCOPY N/A 04/03/2021 Surgeon: Fran [...] TO AREA(S) DAILY. APPLY TO FEET/TOES LANCETS MIS Check sugars 1 times a day. Dx [...] History Narrative Lives in an apt in [place], [place] himself. Social Determinants of Health Financial [...] Small left pleural effusion not excluded. RL: 2823 End of Report SSMENT: 1. Hypertensive emergency [...] send patient care was 60 minutes [place] ASSISTANT PROFESSOR OF ART was verified during stay Yared Larios MD [facility] 2024-04-04 23:43:26 Medicine History & Physical [...] MEALS, Bj Weiss MD, 25 mg at 04/04/241723 dextrose 50 % in water (D50W) injection [...] Bj Weiss MD, 40 mg at 04/04/24 145 Sliding Scale Insulin - Lispro (HumaLOG), , [...] vascular congestion. Preliminary Report Dictated by Resident: Jorge Torre I, Garret Rubio MD., have reviewed this study and agree [...] of comfort: N/A Code Status: Full [place] ASSISTANT PROFESSOR OF ART was verified Disposition: Admit, FU cards eval Diabetes mellitus type 2: - Continue home medications including glipizide - Start insulin sliding scale Igned: Criss Leyva DO 04/04/2024 [facility] Procedure Notes Date/Time Note Provider Source 2024-08-12 [...] of the right atrium was performed with Mcclave catheter, A series of RF ablation lesions [...] up in the arrhythmia clinic as scheduled S BACK COUNTER MAN IM-CLINICAL CARDIAC ELECTROPHYSIOLOGY STAFF [facility] 2024-07-19 17:58:49 Procedure(s): CO RIGHT HEART CATH O2 SATURATION & CARDIAC OUTPUT Pre-Procedure Diagnose(s): Acute on chronic HFrEF (heart failure with reduced ejection fraction) Post-Procedure Diagnose(s): Acute on chronic HFrEF (heart failure with reduced ejection fraction) Right Heart Cath Bryan Parada Date of Service: 07/19/2024 6:01 PM Attending Physician: Vernon Weller MD Fellow: Dr. Mejía Referring Physician: Dr. Rico Procedures Performed: Right Heart Cath: CTP 43706 Indication/Diagnosis: congestive heart failure Consent: Risks, benefits, alternatives and complications of the procedure discussed with the patient, who understood and agreed to proceed. Aseptic technique: Chlorprep Local Anesthesia: 1% lidocaine without epinephrine Sedation: None Access site: right internal jugular vein Closure Method: Manual Compression Sterile dressing: yes Complications: none Procedures: The patient arrived the mason tender restoration labor in stable condition. After patient identification/verificatio n, the patient was thereafter transferred onto the mason tender restoration labor table. After administering sedation, Time Out was done. Using modified Seldinger technique, the Right internal jugular vein was accessed using a micropuncture kit. The access was upgraded a 7Fr sheath. A [place] Catheter was then prepped and advanced through [...] procedure. Vernon Weller MD 07/19/2024 6:01 PM S BACK COUNTER MAN IM-INTERVENTIONAL CARDIOLOGY STAFF [facility] 2024-07-18 18:57:09 IMMIGRATION JUDGE-D Generator Change Out Procedure Note Procedure: Bi-Ventricular [...] complications. Device Characteristics: Device Characteristics: Pulse generator: [employer] Model G247 RA Lead: Biotronik Solia [...] weeks. José Miguel Arellano MD Cardiac Electrophysiology S BACK COUNTER MAN [facility] Notes Date/Time Note Provider Source [facility] 08:39:16 [place] 321535-03-05 11:43:01 Images from the original note were [...] all his medications for verification. RAFAEL Norton RNFlower HospitalYqvhjy9257-13-50 20:23:37 Pt given printed and verbal discharge [...] gait, in no apparent distress, RAFAEL Pal RNFlower HospitalDdjobp6036-26-54 16:31:44 CC: patient presents to the ER [...] difficulty, using wheelchair. Appears in no distress. [facility]2025-03-04 16:03:00 Bryan Parada is a 58 year [...] Data is abnormal Jackie Goldberg MD 10/04/241953 [facility] EMERGENCY PHYSICIAN STAFFFlower HospitalLlbwup8115-65-65 16:27:14 Diagnosis Chest pain, unspecified type - Primary Chest pain, unspecified type Chronic systolic heart failure (CMS/HCC) (HCC) Chronic systolic heart failure Diabetes mellitus (HCC) Type II or unspecified type diabetes mellitus without mention of complication, not stated as uncontrolled [facility] CenterYvllsrt2617-23-25 16:27:14 [place] [address]-03-03 16:27:14* Consultation (Routine) - Pending Review Specialty Diagnoses / Procedures Referred By Contac t Referred To Contact Cardiac Rehabilitation Diagnoses Chronic systolic heart failure (CMS/HCC) (HCC) Procedures CO OFFICE/OUTPATIENT [facility] 60 MINUTES Michael Dodd MD [address] [facility] [address] [place] [id number] Phone: tel: fax: [address] [place] [address] Phone: tel: Referral ID Status Reason Start Date Expiration Date Visits Requested Visits Authorized [id number] Pending Review Specialty Services Required 10/03/2024 04/01/2025 36 36 S BACK COUNTER MAN* Consultation (Routine) - Pending Review Specialty Diagnoses / Procedures Referred By Contac t Referred To Contact Cardiac Rehabilitation Diagnoses Chronic systolic heart failure (CMS/HCC) (HCC) Procedures CO OFFICE/OUTPATIENT [facility] 60 MINUTES Marcel Saunders MD [address] [place] [address] Phone: tel: fax: Referral ID Status Reason Start Date Expiration Date Visits Requested Visits Authorized [id number] Pending Review Specialty Services Required 10/03/2024 04/01/2025 36 36 [facility]2025-03-03 16:27:14* * Auth/Cert (Routine) Specialty Diagnoses / Procedures Referred By Contac t Referred To Contact Diagnoses Chronic systolic heart failure (CMS/HCC) (HCC) Chest pain, unspecified type Procedures IP Milan Valverde MD [address] [facility] [address] [place] [address] Phone: tel: fax: Luis [facility] (4 Cardiac IMU) [address] [place] [address] Phone: tel: Referral ID Status Reason Start Date Expiration Date Visits Re quested Visits Authorized [id number] 1 1 [facility] Center[facility]nsdqrp9707-86-44 16:27:14* Audit-C Score Answer Date of Assessment Author 0 10/02/2024 10:07 PM Cate Doherty RN * Intimate Partner Violence Question Answer Date of Assessment Author Within the last year, have y ou been humiliated or emotionally abused in other ways by your partner or ex-partner? No 10/02/2024 10:07 PM Gearld Doherty RN Within the last year, have [...] 10/02/2024 10:09 PM Cate Esteves RN * [place] Suicide Severity Rating Scale (Screener/Recent Self-Report) Question Answer Date of Assessment Author 1. Wish to be (Past 1 Month) No 10/02/2024 10:09 PM Gerald Doherty RN 2. Non-Specific Active Suici anne Thoughts (Past 1 Month) No 10/02/2024 10:09 PM Ken Doherty RN 6. Suicidal Behavior (Lifetime) No 10:09 PM Cate Doherty RN [place] [id number] 16:27:14* Anne Marie Ro - 10/03/2024 1:40 PM PARTS BACK COUNTER MAN [facility] schedule medicaid transportation with [facility] to transfer patient Home. supervisor cab time is 16:00 Trip#[id number] S BACK COUNTER MAN * Loan Moreau NP - 10/03/2024 10:03 AM PARTS BACK COUNTER MAN Risks and benefits regarding non-conditional MRI discussed with patient. MRI is considered non-conditional due to [employer] generator and Biotronik leads. Patient verbalized understanding and would like to proceed with MRI. S BACK COUNTER MAN * Mita Billingsley, PT - 10/03/2024 9:40 AM PARTS BACK COUNTER MAN Evaluation and Treatment Note Patient Name: Bryan Parada Today's Date: 10/03/2024 Preferred Language: Marshallese Assessment & Plan Assessment: Prognosis: Good Evaluation/Treatment [...] PMHx of chronic combined HFrEF (5-10%, s/p IMMIGRATION JUDGE-D), NICM (nonobstructive cath 2019), afib (on Eliquis), [...] level Prior Level of Function: Level of [place]: Other (Comment) (Independent) ADL Assistance: Independent Homemaking [...] (CGA) Trials/Comments 1: x2 Transfer To/From: Chair, Oid-mz-Xtpev/Mqfad-hh-Uxt Assistive Devices And Adaptive Equipments: No device [...] (CGA) Trials/Comments 1: x2 Transfer To/From: Chair, Cse-fm-Wgdit/Sucwb-yy-Hgg Assistive Devices And Adaptive Equipments: No device [...] as the discharge summary. Mita Billingsley PT S BACK COUNTER MAN * Mita Cortes OT - 10/03/2024 8:24 AM PARTS BACK COUNTER MAN Evaluation and Treatment Patient Name: Bryan Parada Today's Date: 10/03/2024 Preferred Language: Marshallese Assessment & Plan Assessment: OT Assessment Results: [...] PMHx of chronic combined HFrEF (5-10%, s/p IMMIGRATION JUDGE-D), NICM (nonobstructive cath 2019), afib (on Eliquis), [...] 160s. Pending Device Interrogation & MRI Pain: 9/10 Chest pain At end of session c/o [...] as the discharge summary. Mita Cortes OT S BACK COUNTER MAN S BACK COUNTER MAN * Chalino Costello MD - 10/02/2024 11:12 AM PARTS BACK COUNTER MAN [facility] Cardiac Care Unit (CCU) Progress Note Name: Bryan Parada : 1965 Admission Date: 09/30/2024 Admission Diagnosis/Diagnoses: Chest pain, unspecified type [R07.9] Hospital Day: 1 Problem List Principal Problem: Chest pain, unspecified type Assessment & Plan Assessment Bryan Parada is a 58 y.o. male with PMHx of chronic combined HFrEF (5-10%, s/p IMMIGRATION JUDGE-D), NICM (nonobstructive cath 2019), afib (on Eliquis), [...] SBP 160s. Cardiovascular: #HFrEF (EF 5-10%) s/p IMMIGRATION JUDGE-D #NICM #HTN #HLD #Atrial Fibrillation - Multiple prior caths - Previously had cardiomems - IMMIGRATION JUDGE-D placed (gen change 07/2024) - [place] Stress 2016: nonischemic - [facility] 2020: nonobstructive - [facility] 2023: RA mean 6mmHg RV 37/10 mmHg [...] staffed with attending physician, Dr. Jules Valverde MD;Jose *. See the attending attestation for further details and final recommendations. Chalino Costello MDCritical access hospital | [facility] Internal Medicine, PGY-2 4:39 PM 10/02/24 Subjective Subjective/Overnight Events:Patient reports continued 8/10 chest [...] Valverde MD at 10/03/2024 2:38 AM CST S BACK COUNTER MAN S BACK COUNTER MAN Associated attestation - Milan Valverde MD - 10/03/2024 2:38 AM PARTS BACK COUNTER MAN The patient was seen and examined with the resident and/or fellow. The relevant lab results, imaging and EKGs were personally reviewed, and the medications were reconciled. I agree with above mentioned assessment and plan. Annika FryJadcgkt1495-77-86 16:27:14Scheduled Orders Scheduled Referrals Name Type Priority Associated Diagnoses Order Schedule Cardiac Rehabilitation Phase II Referral Outpatient Referral Routine Chronic systolic heart failure (CMS/HCC) ([facility]) Expected: 10/03/2024 (Approximate), Expires: 10/03/2025 Cardiac Rehabilitation Phase II Referral Outpatient Referral Routine Chronic systolic heart failure (CMS/HCC) ([facility]) Expected: 10/03/2024 (Approximate), Expires: 10/03/2025 Health Maintenance [...] on patient's age to complete this topic [facility] Wcpokpb6738-52-38 15:08:00 Home discharge instruction and medication instruction explained to the pt. Verbalized understanding. [facility] [id number] 14:23:32 Images from the original note were not included. [id number] Atorvastatin Brand Name(s): Atorvaliq?, Lipitor?, Caduet? (as [...] be awakened, immediately call emergency services at 301. What OTHER INFORMATION should I know? Keep [...] of all of the prescription and nonprescription (geqs-dar-qcnnyzu) medicines you are taking, as well as [...] or pharmacist about specific clinical use. The [place] [employer] represents that the information provided hereunder was formulated with a reasonable standard of care, and in conformity with professional standards in the field. The [place] [employer] makes no representations or warranties, express or implied, including, but not limited to, any implied warranty of merchantability and/or fitness for a particular purpose, with respect to such information and specifically disclaims all such warranties. Users are advised that decisions regarding drug therapy are complex medical decisions requiring the independent, informed decision of an appropriate health care team coordinator scheduler, and the information is provided for informational purposes only. The entire monograph for a drug should be reviewed for a thorough understanding of the drug's actions, uses and side effects. The [place] [employer] does not endorse or recommend the use of any drug. The information is not a substitute for medical care. AHFS? Patient Medication Information?. ? Copyright, 2023. The [place] [employer]?, [address], [address], [place], [place]. All Rights Reserved. Duplication for commercial use must be authorized by [facility]. Selected Revisions: February 20, 2024. AHFS? Patient Medication Information?. ? Copyright, 2024 [facility]2025-03-03 14:23:31 Images from the original note were not included. [id number] Recognizing a Heart Attack or Angina If [...] you'll be told what to do. The general office dispatcher may tell you to give the [...] problems. Last Reviewed Date: 2023 00:00:00 ? [id number] [employer]. All rights reserved. This information is not intended as a substitute for professional medical care. Always follow your healthcare professional's instructions. RAFAEL [facility] Rgtsitt2415-32-57 13:51:31 Problem: Pain - Adult Goal: Verbalizes/displays [...] monitored and maintained or improved Outcome: Progressing S BACK COUNTER MAN [facility] Bzbbpcb5208-03-82 08:26:14 Bryan Parada is a 58 y.o. [...] remains on iv diuresis. Agree with ip [facility] Internal Medicine PhysicianMemoutmartina [id number] 01:09:33 The patient is Moderately Stable - [...] address these barriers include follow care plan. [facility]2025-02-27 14:45:00 Images from the original note were not included. Venipuncture collection performed by clean technique on the right anticubitus. Total of 1 attempts were made. Slight pressure and a bandage/dressing were applied to the site(s). The patient experienced no complications. The following specimens were processed according to instructions and sent to [facility] [facility] per lab order on 09/29/2024: LT BLUE SST 1 RED LAV PPT DK GREEN (LiHep) DK GREEN (SodH) HERZOG DK BLUE (K2) DK BLUE (S) ACD Blood Culture NIPT/NTD Ladd orders only [facility]2025-02-18 16:37:31 Problem: Discharge Planning Goal: Adequate for [...] Absence of falls Outcome: Adequate for discharge [facility]2025-02-18 12:05:21 Images from the original note were not included. Pharmacy Recommendations for Patient Admission: No recommendations. The [facility] medication list has been updated and reflected in the chart below. Please use the [facility] Med List for ordering home doses during admission. Patient Adherence: Sporadically Non-Adherent to some medications. Source(s) used in interview: Patient, Outpatient Pharmacy, and Medical Records Interview limitations: None Medications Added Medications Removed Medications Modified None None None Allergies as of 09/19/2024 - Reviewed 09/19/2024 Allergen Reaction Noted Imdur [isosorbide mononitrate] Other - See comments 04/04/2020 Pharmacy Updated [facility] Med List Medication Sig acetaminophen-codeine (TYLENOL-CODEINE #3) [...] mouth every morning. Outpatient Pharmacy Contact Information: [facility]/pharmacy #[id number] - [place], [place] - [address] [facility] [address] 274 [facility] [id number] [facility] - [address] [place] [id number] Thank you for the opportunity to participate in the care of this patient. Ava Logan RPH 12:04 PM, 09/20/2024 [facility] Department of Pharmacy - [facility] Phone: ADC: [phone] S BACK COUNTER MAN Ava Logan RPHUTMB - Nzjgva4925-62-14 01:06:47 Problem: Discharge Planning Goal: Adequate for [...] Absence of falls Outcome: Progressing as expected S BACK COUNTER MAN Fiona Morales [place] 961335-02-17 16:46:18 Problem: Discharge Planning Goal: Adequate for [...] Absence of falls Outcome: Progressing as expected S BACK COUNTER MAN Portia Jerome Critical access hospitalBdioqt5299-23-29 15:19:01 D/w Dr. Ladd. Patient pending admission and awaiting bed. Attempted to call daughter back to inform of plan. No answer, unable to lvm. RAFAEL Norton Critical access hospitalNcmccw2785-59-82 14:33:50 Patient admitted to 2226 for diagnosis of chest pain Patient agrees to admission, discussed plan of care with patient and family. Patient is awake, alert, oriented, resp reg unlabored, color appropriate for race, PIV intact No adverse reaction to medications administered while in ED Belongings with patient to unit Report to Cristela BAKER RAFAEL Kaiser Critical access hospitalUyngyg6298-75-51 13:01:19 Bryan Parada is a 58 year [...] for at least a few more days RAFAEL SolerFlower HospitalNdtflu1676-37-06 10:43:28 Patient arrived by [place] [facility] for chest pain and shortness of breath with exertion. Patient was seen here yesterday for same complaint. RAFAEL Rodriguez Critical access hospitalRgqdox9439-35-24 10:39:00 Associated Order(s): EKG-12 Lead ROUTINE ONCE Pre-Procedure Diagnose(s): Chest pain, unspecified type Post-Procedure Diagnose(s): Chest pain, unspecified type [facility] Emergency Department Note Patient Name: Bryan Parada Date of : 1965 58 year old male Treatment Room: TX2/TX2 Primary Care Physician: Brooks Barker Patient Escorted by: Self [9] Mode of Arrival: EMS - [facility] ([place]) [43] EMS Treatment Prior to ED Arrival: [facility] treatment: None Travel and Exposure Screening: Symptoms [...] to be working 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 METABOLIC PANEL (28302) TROPONIN I N-TERMINAL PRO-BNP Influenza A B [...] ED Physician in the absence of a recycling crew supervisor: yes Interpretation: Interpretation: abnormal Quality: Tracing quality: [...] but not limited to congestive heart failure, PR, noncardiac pain In emergency department patient with [...] signed by: Evon Frances MD 09/19/24 1640 [facility]2025-02-17 10:39:00 AdmissionCare Guideline: Heart Failure, Inpatient Based [...] AdmissionCare documentation entered by: Evon Myers [facility], 28th edition, Copyright ? 2023 [facility] Hospital[facility] [facility] All Rights Reserved. [id number]:35:37-06:00 [facility]2025-02-17 10:05:05 Spoke with patient and daughter. Patient c/o constant CP with SOB worsened by activity. Patient seen and discharged from [facility] ER last night. Advise patient to go back to ER. Patient's daughter called EMS. Dr. Ladd aware. RAFAEL Norton Critical access hospitalXogibu4001-06-86 09:47:51 Bryan Parada is a 58 year old male Pt complains of chest pain and becoming short of breath when walking x 1 day. Pt was connected to nurse Cindy RAFAEL RaineyFlower HospitalSxraym6506-67-73 18:06:34 Patient is awake and alert, oriented x4. Speech is clear and appropriate. Respirations even and unlabored, no distress. Ambulatory with steady gait. Reviewed discharge instructions, follow-up care, verbalizes understanding. S BACK COUNTER MAN Alena Barton Critical access hospitalXvcygo8496-54-82 15:44:20 Patient received Aspirin in route to the ER from EMS. RAFAEL Alford Critical access hospitalUdykqr0407-62-40 14:33:42 Patient brought in by [facility] for shortness of breath since this morning. He reports he is on his second pacemaker ([employer]) and has had this liu since Jul. He checks it every morning and this morning he got a light that said to see a doctor. When EMS arrived he also reported he was having chest pain, substernal, squeezing, and rated at 7/10. EMS gave 324 ASA. S BACK COUNTER MAN Luis Kaiser [facility] - Hrfppg2536-73-45 14:26:00 [facility] Emergency Department Note Patient Name: Bryan Parada Date of : 1965 58 year old male Treatment Room: SD1/SD1 Primary Care Physician: Brooks Barker Patient Escorted by: Self [9] [facility] [43] EMS Treatment Prior to ED Arrival: [facility] treatment: None Travel and Exposure Screening: Symptoms [...] pain, SOB, and weakness. He states his [employer] machine went off this morning and the [...] N/A 02/19/2017 Surgeon: Fran Canchola MD; Location: [facility] OR [facility] ESOPHAGOGASTRODUODENOSCOPY N/A 07/20/2019 Surgeon: Maddi Ballesteros MD; Location: [facility] OR [facility] ESOPHAGOGASTRODUODENOSCOPY N/A 04/03/2021 Surgeon: Fran Trinh [...] ED Events Date/Time Event User Comments 09/18/24 1433 Medical Screening Begins JOSEPH QUINONES MD -- [...] signed by: Joseph Quinones DO 09/18/24 1744 [facility]2025-01-31 16:14:43 Images from the original note were not included. Patient should still have refills available at the [facility]. Patient notified. [facility] Jackie Mims Critical access hospitalDmwztq9075-57-36 09:54:40 Pt request rx refill. Please Advise. [facility]/pharmacy #[id number] - [place], [place] - [address] [facility] [address] [address] [place] [address]-01-21 10:37:25 TRANSITIONAL CARE MANAGEMENT ASSESSMENT 08/23/2024 Bryan Phu Scales [id number] Bryan Parada is a 58 year old Black or male was admitted on 08/18/24 to [facility] ICU. He was discharged on 08/19/24 with discharge disposition of HR- Routine Discharge. Admitting Physician: Yared Larios Discharge Diagnosis: Principal Diagnosis: Unstable angina Linked Episodes Type: Episode: Status: Noted: Resolved: Last update: Updated by: TRANSITION OF CARE tcm Active 08/19/2024 08/23/2024 10:34 AM Flip Zavala RN Comments: TCM Qow-wimn-ao-face outreach documentation: Discharge Assessment Chart Assessed: 08/23/24 [...] Phone 08/26/2024 2:00 PM Kim Pate NP [facility] Cardiology, [facility] [phone] 08/26/2024 3:30 PM Brooks Barker NP [facility] [phone] 09/01/2024 1:50 AM [facility] REMOTE DEVICE CLINIC 1 [facility] Cardiac Device Clin, Tabitha Berry [place] [phone] RAFAEL Zavala RNFlower HospitalYbygoc2975-72-56 11:53:37 Patient recently seen during his stay in the hospital. Will plan for follow-up in couple of weeks here in [place]. S BACK COUNTER MAN Flower HospitalCxhzrn3616-14-93 16:40:32 Problem: Falls, Risk of Goal: Absence [...] function within specified parameters 08/19/2024 1640 by Brooek Pritchett RN Outcome: Resolved 08/19/2024 1640 by Brooke Pritchett RN Outcome: Adequate for discharge 08/19/2024 1518 by Brooke Pritchett RN Outcome: Progressing as expected RAFAEL Pritchett Critical access hospitalNljlzm1291-43-34 16:40:21 Problem: Falls, Risk of Goal: Absence [...] Brooke Pritchett RN Outcome: Progressing as expected [facility]2025-01-17 15:18:20 Problem: Falls, Risk of Goal: Absence [...] within specified parameters Outcome: Progressing as expected [facility]2025-01-17 01:49:13 Problem: Falls, Risk of Goal: Absence [...] within specified parameters Outcome: Progressing as expected S BACK COUNTER MAN Antonieta Stoddard Critical access hospitalCcljps9599-81-78 00:28:22 Patient admitted to 2113-08 for diagnosis of Chest pain,NSTEMI, Acute on chronic congestive heart failure Patient agrees to admission, discussed plan of care with patient and family. Patient is awake, alert, oriented, resp reg unlabored, color appropriate for race, PIV intact No adverse reaction to medications administered while in ED Belongings with patient to unit RAFAEL Fried Critical access hospitalHskwei1138-97-52 23:01:39 Nurse Report Report given to Zafar BAKER. Chief complaint, assessment findings, infusion verify and orders reviewed. RAFAEL Samuel Critical access hospitalAjbtkd9354-86-65 19:03:11 Pt brought in by [facility] c/o chest pain that started about 1700 today. Pt reports pain dull & 10/10. Also reports that his hands began shaking earlier in day. Pt has extensive cardiovascular hx. RAFAEL Reynaga Critical access hospitalPucqlv5271-86-31 19:01:00 AdmissionCare Guideline: Myocardial Infarction, WITH Heart [...] of the following: - Acute myocardial infarction (PR) (not in context of cardiac procedure within [...] AdmissionCare documentation entered by: Jesse Soliz [facility], 28 edition, Copyright ? 2023 [facility] All Rights Reserved. [id number]:47:28-06:00 [facility]2025-01-16 15:38:04 90 day supply sent as requested [facility]2025-01-15 15:25:08 Call placed to Mr. Parada to schedule sooner appt, however he lives in [place] and has to find a ride so would rather keep it on 08/26/24. Advised to contact HF RN if he has any questions, concerns or symptom to contact HF RN back. Verbalized understanding. No further questions or concerns at this time Can patient be seen in [place] with Dr. Ladd for follow up due to possible transportation issues or should he only be scheduled with HF S BACK COUNTER MAN Lizett Duffy RNFlower HospitalCdcsji7608-00-53 08:47:30 Attempted to call mr. Parada and offer HFU for 08/18/24. No answer at this time, left to return call at his earliest convineince If patient calls back, please schedule in HF clinic with ROHIT billingsley 08/18/24 if patient agreeable S BACK COUNTER MAN Lizett Duffy RNUTMB - Ndalyo7184-93-97 16:42:36 TRANSITIONAL CARE MANAGEMENT ASSESSMENT 08/16/2024 Bryan Parada [id number] Bryan Parada is a 58 year old Black or male was admitted on 08/09/[address] He was discharged on 08/15/24 with discharge disposition of HR- Routine Discharge. Admitting Physician: Criss Leyva Discharge Diagnosis: Paroxysmal atrial fibrillation with RVR s/p ablation 08/12/24 Linked Episodes Type: Episode: Status: Noted: Resolved: Last update: Updated by: TRANSITION OF CARE TCM Active 08/15/2024 08/16/2024 4:42 PM Ayan Dodd RN Comments:08/15/2024 TCM Rwa-ipwt-jo-face outreach documentation: Discharge Assessment Chart Assessed: 08/16/24 [...] Phone 08/26/2024 2:00 PM Kim Pate NP [facility] Cardiology, [facility] [phone] 09/01/2024 1:50 AM [facility] 1 [facility] Cardiac Device Clin, Tabitha Reddy [phone] CM unable to schedule Mr. Parada for an earlier appt. No sooner appts available. Per d/c order "schedule with HF in 3-5 days." He was scheduled for 08/26/2024 by referral team. HF team notified.Account Info Account # Financial Class Enc/CSN # BRYAN PARADA [[id number]] Managed Medicare [122] [id number] Order Questions Question Answer Comment Patient's Preferred Location: [place] When (Patients with risk for unplanned readmission score over 16 or those noted as Hospital Dependent should follow up within 7 days with PCP or primary DX specialist): 3-5 Days Note: Follow-Up Date or Schedule Discharge Disposition: HOME, (AHR) Risk of Unplanned Readmission:( Score greater than 16 indicates high risk) 27.45 Other Scheduling Considerations: Subspecialty Heart Failure RAFAEL Dodd Critical access hospitalRrspee7616-42-18 13:41:55 Care Transition CM made f/u call to pt post-discharge. No response and call went to voicemail. CM left a discreet message with purpose of call and CM's call back information. [facility]2025-01-13 15:17:07 Problem: Falls, Risk of Goal: Absence of falls 08/15/2024 1517 by Natan Huynh RN Outcome: Adequate for discharge 08/15/2024 1053 by Natan Huynh RN Outcome: Progressing as expected Problem: Pain Goal: Control of pain at or below patient's documented comfort goal 08/15/2024 1517 by Natan Huynh RN Outcome: Adequate for discharge 08/15/2024 1053 by Natan Huynh RN Outcome: Progressing as expected Goal: Reduction in pain sensation 08/15/2024 1517 by aNtan Huynh RN Outcome: Adequate for discharge 08/15/2024 [...] (Risk or Actual) Goal: Wound healing 08/15/2024 151 by Natan Huynh RN Outcome: Adequate for discharge 08/15/2024 1053 by Natan Huynh RN Outcome: Progressing as expected Goal: Prevention of new skin breakdown 08/15/2024 1517 by Natan Huynh RN Outcome: Adequate for discharge 08/15/2024 1053 by Natan Huynh RN Outcome: Progressing as expected Problem: Bleeding, Risk of Goal: Absence of impaired coagulation signs and symptoms 08/15/2024 151 by Natan Huynh RN Outcome: Adequate for [...] expected Goal: Adequate oxygenation 08/15/2024 1517 by Natan Huynh RN Outcome: [...] Natan Huynh RN Outcome: Progressing as expected [facility]2025-01-13 10:53:41 Problem: Falls, Risk of Goal: Absence [...] Adequate for discharge Outcome: Progressing as expected [facility]2025-01-13 06:18:17 Problem: Falls, Risk of Goal: Absence [...] discharge Outcome: Progressing as expected RAFAEL Horton Critical access hospitalZebwcs5335-38-79 03:08:28 Pt refused CPAP RAFAEL Pate [facility] CenterVapaoj1803-28-85 12:37:03 Summary: Orthostatic VS 08/14/24 1220 08/14/24 [...] Shock Index 0.63 0.55 0.77 RAFAEL Huynh [facility] - Tplpia8859-66-42 01:59:28 Problem: Falls, Risk of Goal: Absence [...] Adequate for discharge Outcome: Progressing as expected [facility]2025-01-11 05:42:36 Problem: Falls, Risk of Goal: Absence [...] decreased cardiac output Outcome: Progressing as expected [facility]2025-01-10 17:12:34 Problem: Falls, Risk of Goal: Absence [...] decreased cardiac output Outcome: Progressing as expected S BACK COUNTER MAN Edd Chaves Critical access hospitalKjguxv9041-99-90 15:42:41 Elapsed Sedation Time: 20 min. [facility]2025-01-10 03:55:21 Problem: Falls, Risk of Goal: Absence [...] decreased cardiac output Outcome: Progressing as expected [facility]2025-01-09 15:54:23 Problem: Falls, Risk of Goal: Absence [...] Outcome: Not progressing as expected RAFAEL Aly Critical access hospitalYzbyji3087-96-40 04:02:05 Problem: Falls, Risk of Goal: Absence [...] output Outcome: Progressing as expected RAFAEL Riley RNUTMB - Dgvjpd5402-59-29 08:00:00 Problem: Pain Goal: Control of pain [...] breathing Outcome: Progressing as expected RAFAEL Gamble RNUTMB - Mphuoy2807-21-22 03:16:03 Problem: Falls, Risk of Goal: Absence [...] decreased cardiac output Outcome: Progressing as expected [facility] Alex Bejarano Critical access hospitalMdvngw8307-11-17 19:14:31 Problem: Falls, Risk of Goal: Absence [...] decreased cardiac output Outcome: Progressing as expected [place] 432405-01-07 17:42:55 Report given to ICU [facility] Elham Martinez RNFlower HospitalRwimux4111-85-97 13:05:54 Received report from YARELIS Varela [place] 432405-01-07 11:41:25 Cough, chest pain since this morning. EMS gave 325ASA, NTGx2. S BACK COUNTER MAN Alena Barton RNUT - Rkhllp9557-18-46 11:27:00 EMERGENCY DEPARTMENT ENCOUNTER [facility] Patient Name: Bryan Parada Date of : 1965 58 year old Exam Room:[place] [address] Primary Care Physician: Brooks Barker Pre- Hospital Patient Escorted by: Self [9] Mode of Arrival: EMS - [facility] ([place]) [43] EMS Treatment Prior to ED Arrival: [...] N/A 02/19/2017 Surgeon: Fran Canchola MD; Location: [facility] OR Location ESOPHAGOGASTRODUODENOSCOPY N/A 07/20/2019 Surgeon: Maddi Ballesteros MD; Location: [facility] OR Location ESOPHAGOGASTRODUODENOSCOPY N/A 04/03/2021 Surgeon: Fran [...] 0.01 - 0.09 10*3/uL COMP. METABOLIC PANEL (97517) - Abnormal NA 141 135 - 145 [...] vw CBC WITH DIFF COMP. METABOLIC PANEL (07905) TROPONIN I N-TERMINAL PRO-BNP Magnesium MRSA / [...] components within normal limits COMP. METABOLIC PANEL (86370) - Abnormal; Notable for the following components: [...] other components within normal limits Narrative: The [facility] patient population mean normal value for [...] [DN] 1406 No beds in the CCU [place] will hold at this time [DN] 1404 [...] AdmissionCare documentation entered by: Michelle Miranda [facility], edition, Copyright ? 2023 [employer] All Rights Reserved. [id number]:38:28-06:00 Medical Decision Making Problems Addressed: Palpitations: acute illness or injury Amount and/or Complexity of Data Reviewed Labs: ordered. Decision-making details documented in ED Course. Radiology: ordered and independent interpretation performed. Decision-making details documented in ED Course. Risk Prescription drug management. Parenteral controlled substances. Decision regarding hospitalization. Pulse Oximetry: is not hypoxic. Interpreted. Reassessment:stable Communication with oracle adf consultant: None. Limitations to patient care and [...] this time. There are no beds in [place]. I did speak with Dr. Thomason at length in regards to this patient. He recommended transfer however there are no beds. The patient was admitted to the inpatient medicine service here in [facility] for further management. Bryan Parada is a [...] In 2 days [facility]ICE [facility] 1 [facility] Cardiac Device Clinic, [facility] In 6 days Brooks Barker NP [facility] In [facility] weeks [facility] 1 [facility] Cardiac Device Clin, Tabitha Walton Jr., MD Clinical It Applications Developer [facility] Emergency Department [employer] Dictation Software is used frequently and may produce errors. Promptly contact for obvious discrepancies. Michelle Miranda MD 08/10/24 1252 [facility] EMERGENCY PHYSICIAN [facility]2025-01-07 11:27:00 Associated Order(s): Critical Care Critical Care [...] separately billable procedures and treating other patients. [facility]2025-01-07 11:27:00 AdmissionCare Guideline: Chest Pain, Observation Based [...] AdmissionCare documentation entered by: Michelle Miranda [facility], 28th edition, Copyright ? 2023 [facility] [employer] [facility] All Rights Reserved. [id number]:38:28-06:00 S BACK COUNTER MAN [facility] - Twwnrr6132-28-67 11:56:32 TRANSITIONAL CARE MANAGEMENT ASSESSMENT 08/02/2024 Bryan Parada [id number] Bryan Parada is a 58 year old Black or male was admitted on 07/31/[address] He was discharged on 08/01/24 with [...] 11:55 AM Flip Zavala RN Comments: TCM Xpw-eyln-ow-face outreach documentation: Discharge Assessment Chart Assessed: 08/02/24 [...] 08/11/2024 2:00 PM [facility] 1 [facility] [phone] 08/15/2024 3:00 PM Brooks Barker NP [facility] Adult & Geriatric Primary Care, [place] [phone] 09/01/2024 1:50 AM [facility] 1 [facility] Cardiac Device Clin, Tabitha Tr[place]on [phone] S BACK COUNTER MAN Flip Zavala Critical access hospitalUengen3149-00-04 15:18:01 Problem: Falls, Risk of Goal: Absence [...] Adequate oxygenation Outcome: Not progressing as expected RAFAEL Young Critical access hospitalVhjttg1520-34-53 02:57:57 Problem: Falls, Risk of Goal: Absence of falls Outcome: Progressing as expected [place] 432404-12-29 21:24:47 07/31/242117 Patient Observation Patient Observations Patient still c/o chest pain at incisional site,Tyelenol ineffective.Notified MD. RAFAEL Acuna [place] 961334-12-29 16:33:21 Patient transferred to [facility] for diagnosis of pacemaker surgical site wound. Patient agrees to transfer/admit plan and verbalized understanding of plan of care, family aware of plan. Patient awake alert, oriented, resp reg unlabored, skin w/d. No adverse reaction to medications given while in ED. Report given to [place] [facility] personnel. [address]12-29 16:31:52 Report given to [place] [facility] personnel [address]12-29 16:30:55 Report given to YARELIS Kendrick [facility] [address]12-29 16:14:29 [facility] min [facility] Adilene Navarro PCTTammy [place] 523744-12-29 16:07:58 Pt given sandwich, juice, pudding [place] [address]-12-29 15:20:16 Assuming care of pt [place] [address]-12-29 13:43:34 Pt arrived ambulatory states his pacemaker started bleeding this morning with dizziness and tiredness. Pacemaker placed 07/25/24, denies injury. [facility] Maria Luisa Pathak [place] [address]-12-26 15:14:39 Pt discharged with diagnosis of visit for wound check. Printed and verbal instructions reviewed with and given to pt. PT verbalized understanding of teaching and recommended follow-up. Denies questions or concerns at this time. Pt ambulatory at discharge. Appears in no apparent distress. No ataxia noted. S BACK COUNTER MAN [facility] HospitalThmqit0463-16-86 14:22:56 Pt to ED CO bleeding to insertion site of pacemaker. States that it was recently placed at [facility], and the dermabond peeled off. S BACK COUNTER MAN Terri Samuel Critical access hospitalBfaikt0532-08-07 14:19:00 Images from the original note were not included. [facility] Emergency Department Note Patient Name: Bryan Parada Date of : 1965 58 year old male Treatment Room: [place] [address] Primary Care Physician: Brooks Barker Patient Escorted by: Self [9] Mode of Arrival: Personal means [1] EMS Treatment Prior to ED Arrival: PIECER UP treatment: Medication (comment) PIECER UP treatment comments: daily medications Travel and Exposure Screening: Symptoms Does patient have any of these symptoms?: (not recorded) Exposure Screening Has patient had contact with someone with a communicable disease in the last month?: (not recorded) Diseases exposed to:: (not recorded) Is Patient ?: (not recorded) Exposure Date: (not recorded) Chief Complaint: Chief Complaint Patient presents with federal appellate law clerk problem History of Present Illness: The patient [...] N/A 02/19/2017 Surgeon: Fran Canchola MD; Location: [facility] OR [facility] ESOPHAGOGASTRODUODENOSCOPY N/A 07/20/2019 Surgeon: Maddi Ballesteros MD; Location: [facility] OR [facility] ESOPHAGOGASTRODUODENOSCOPY N/A 04/03/2021 Surgeon: Fran Trinh [...] ED Events Date/Time Event User Comments 07/28/24 143 Medical Screening Begins MARY REYNAGA DO -- 07/28/24 143 First Provider Evaluation MARY REYNAGA DO -- [...] signed by: Mary Reynaga DO 07/28/24 1457 [facility]2024-12-26 14:16:06 Spoke with patient he states that he is at the ER. [facility] Jackie Mims RNFlower HospitalObpfgt4559-51-25 12:05:42 Bryan Parada is a 58 year old male Pts Nurse Patricia is calling and would like to report that yesterday when pt went to bed his pacemaker looked fine that mason tender restoration labor placed. She states that his pacemaker looks tore up today and pt states that it is very painful to touch. She states that pt was screaming in pain when she was cleaning the blood off the site. Nurse Gomez got in contact with the [facility] Finance Business Manager and spoke with the nurses and they advised pt that he should go to the ER. 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 Please advise. PH [phone] S BACK COUNTER MAN Rachel Choudhary MarcialeUTMB - Gepehv6494-84-50 14:02:40 TRANSITIONAL CARE MANAGEMENT ASSESSMENT 07/22/2024 Bryan Parada [id number] Bryan Parada is a 58 year old Black or male was admitted on 07/13/[address] He was discharged on 07/21/24 with discharge disposition of HR- Routine Discharge. Admitting Physician: Gnio Rico Discharge Diagnosis: Acute on Chronic HF Exacerbation HFrEF s/p IMMIGRATION JUDGE-D (5-10%, NYHA Class IV, AHA Class C) 05/15/24) w/ diastolic dysfunction No linked episodes TCM Ddo-edgj-xj-face outreach documentation: Discharge Assessment Chart Assessed: 07/22/24 [...] Provider Department Dept Phone 07/25/2024 10:00 AM Bls, Heart Failure Nurse Practitioner-Clc [facility] Cardiology, [facility] [phone] 09/01/2024 1:50 AM [facility] 1 [facility] Cardiac Device Clin, Tabitha Reddy [phone] 11/10/2024 9:00 AM [facility] 1 [facility] Cardiac Device Clinic, [facility] [phone] Order Questions Question Answer Comment When (Patients [...] Specimen Type: Comments Heart failure patient. If [facility] clinic, Nursing Staff to call clinic for follow-up appointment to be scheduled within 7 days of discharge. RAFAEL Dodd Critical access hospitalZxojsn4502-30-96 15:48:22 Pt discharge education complete, pending meds to bed delivery for discharge. RAFAEL Napier Critical access hospitalTucnut0066-36-06 13:53:23 Images from the original note were not included. CARE MANAGEMENT Care Coordinators/Social Workers/CM Specialists/Utilization Review/Patient Placement & Transfer Center 07/21/2024 1:53 PM Care Management Discharge Disposition Note (DCDN) 5-2-1 Interventions: Disease specific education, Teach back, Follow-up phone calls, Follow-up appointments, Clear discharge plan 5-2-1 Providers: Physician, Control Area Operator/Mandrel Puller 5-2-1 Patient Capacity Improvements: Avoidance of adverse events/readmission Discussed with patient/patients family involved in decision making: Patient or family caregiver understands, and agrees with discharge plan Patient's family or support contact: Kandis Parada (dtr) [phone] Discharge Plan for ongoing care and services: Home/Caregiver Home, Home Health (HH) Discharge Location: Home Health location: [facility] [address] [facility] [address] [place] [address] (P) [phone] (F) [phone] Home/Caregiver address: [address] [place] [address] Other Living arrangements: [address] [place] [address] Transportation: Taxi Cab Voucher Discharge Medications Will [...] patient; and the patient progress toward goals. [facility]2024-12-18 18:22:32 Problem: Falls, Risk of Goal: Absence [...] Knowledge of procedure Outcome: Progressing as expected [facility]2024-12-18 03:51:36 Problem: Falls, Risk of Goal: Absence [...] Knowledge of procedure Outcome: Progressing as expected RAFAEL Hodge [facility] - Gszxav8957-63-17 08:43:00 Problem: Falls, Risk of Goal: Absence [...] Knowledge of procedure Outcome: Progressing as expected RAFAEL Sahni [facility] - Jvjqyh5588-72-08 07:27:00 Problem: Falls, Risk of Goal: Absence [...] Knowledge of procedure Outcome: Progressing as expected [facility]2024-12-15 14:23:03 Problem: Falls, Risk of Goal: Absence [...] Goal: Effective communication Outcome: Progressing as expected [facility] Merry Young Critical access hospitalRrohyj9707-81-16 22:42:48 Problem: Falls, Risk of Goal: Absence [...] Goal: Effective communication Outcome: Progressing as expected [facility] Frida Trujillo Critical access hospitalHangli9137-86-20 18:56:09 Problem: Falls, Risk of Goal: Absence [...] Goal: Effective communication Outcome: Progressing as expected [address]12-14 04:23:54 Problem: Falls, Risk of Goal: Absence [...] Goal: Effective communication Outcome: Progressing as expected [facility] Merline Treadwell [place] 961334-12-13 18:28:28 Problem: Falls, Risk of Goal: Absence [...] Goal: Effective communication Outcome: Progressing as expected [facility]2024-12-12 14:03:35 Bryan Parada is a 58 year [...] time, pt is medically optimized for discharge. [place] [address]-12-12 10:13:39 Problem: Falls, Risk of Goal: Absence of falls Outcome: Progressing as expected [facility] Ousmane Saavedra RNFlower HospitalEfvzyj5567-76-04 15:46:40 Patient transferred to [place] [address] for diagnosis of congestive heart failure, hypertension, chest pain, elevated troponin, chronic kidney disease Patient agrees to transfer/admit plan and verbalized understanding of plan of care, family aware of plan Patient awake alert, oriented, resp reg unlabored, skin w/d PIV patent, no s/s infiltration noted, No adverse reaction to medications given while in ED. Report given to [facility] EMS personnel [facility]2024-12-11 15:23:47 Nurse Report Report given to YARELIS Duarte. Chief complaint, assessment findings, infusion verify and orders reviewed. Plan of care discussed with both nurses. Rosa Alfredo RN [place] [address]-12-11 15:10:27 Spoke with LT Walker [facility] ETA 30 to 40 min [facility] Adilene Navarro [facility]2024-12-11 14:23:00 Pts niece Linda Katz called for [...] she's somebody. You don't tell her anything." RAFAEL Barton [place] 961334-12-11 11:52:03 Patient arrived ambulatory c/o sent over from [facility] for high blood pressure and EF 5%. Patient complains of chest wall pain in the center of his chest. RAFAEL Alfredo Critical access hospitalCcvema6922-92-93 10:45:00 Images from the original note were not included. Venipuncture collection performed by clean technique on the right anticubitus. Total of 1 attempts were made. Slight pressure and a bandage/dressing were applied to the site(s). The patient experienced no complications. The following specimens were processed according to instructions and sent to [facility] laboratories per lab order on 07/13/2024: LT BLUE SST 1 RED LAV 2 PPT DK GREEN (LiHep) DK GREEN (SodH) HERZOG DK BLUE (K2) DK BLUE (S) ACD Blood Culture NIPT/NTD [place] 432404-12-04 16:11:34 TRANSITIONAL CARE MANAGEMENT ASSESSMENT 07/06/2024 Bryan Parada [id number] Bryan Parada is a 58 year old Black or male was admitted on 07/03/24 to [facility], ADC MED SURG. He was discharged on 07/04/24 with discharge disposition of HR- Routine Discharge. Admitting Physician: Bj Weiss Discharge Diagnosis: Chest pain, unspecified type Linked Episodes Type: Episode: Status: Noted: Resolved: Last update: Updated by: TRANSITION OF CARE tcm Active 07/04/2024 07/06/2024 4:07 PM Flip Zavala, RN Comments: TCM Def-zyeq-vz-face outreach documentation: Discharge Assessment Chart Assessed: 07/06/24 [...] Phone 07/13/2024 11:00 AM David Ladd MD [facility] Cardiology, [facility] [phone] 07/13/2024 11:30 AM Brooks Barker NP [facility] Adult & Geriatric Primary Care, [place] [phone] 09/01/2024 1:50 AM [facility] 1 [facility] Cardiac Device Clin Tabitha [place] [phone] 11/10/2024 9:00 AM [facility] 1 [facility] Cardiac Device Clinic, [facility] [phone] S BACK COUNTER MAN Flip Zavala Critical access hospitalUbrdvn3087-81-24 11:18:17 CM made follow up call to patient post-discharge. No answer and call went to voicemail. CM left a discreet message with purpose of call and CM's call back information. [facility]2024-12-02 11:34:16 Problem: Discharge Planning Goal: Adequate for [...] of Goal: Absence of falls Outcome: Resolved [facility] Azalia Whitfield Critical access hospitalLdpeih0753-43-05 10:57:18 Images from the original note were not included. Pharmacy Recommendations for Patient Admission: Patient says he is on jardiance 10mg in the morning Patient says he takes methocarbamol 500mg TID as needed for knee pain The PIECER UP medication list has been updated and reflected in the chart below. Please use the [facility]ECER UP Med List for ordering home doses during [...] Other - See comments 04/04/2020 Pharmacy Updated [facility]ECER UP Med List Medication Sig apixaban 5 mg [...] mouth every morning. Outpatient Pharmacy Contact Information: [facility]/pharmacy #[id number] - [place], [place] - [address] [facility] [phone] [address] Thank you for the opportunity to participate in the care of this patient. RAFAEL Jordan RPHUTMB - Jzstbt8181-33-26 06:22:57 Problem: Discharge Planning Goal: Adequate for [...] VTE diagnosis (Actual) Outcome: Progressing as expected [place] 432404-12-01 18:19:06 Patient admitted to 2227 for diagnosis of chest pain, Nstemi, hypertensive emergency Patient agrees to admission, discussed plan of care with patient and family. Patient is awake, alert, oriented, resp reg unlabored, color appropriate for race, PIV intact No adverse reaction to medications administered while in ED Belongings with patient to unit [facility] Pretty Luna [place] 961334-12-01 18:17:55 Report given to YARELIS Burnette [place] 432404-12-01 15:17:12 Patient to ED for chest pain and shortness of breath since last night. Pain got worse this morning. [facility] Chuckie Bianchi [place] 961334-12-01 15:12:00 EMERGENCY DEPARTMENT ENCOUNTER [facility]ly [facility] Patient Name: Bryan Parada Date of : 1965 58 year old Exam Room:[facility] Primary Care Physician: Brooks Barker Pre- Hospital Patient Escorted by: Mode of Arrival: EMS - [facility] ([place]) [43] EMS Treatment Prior to ED Arrival: PIECER UP treatment: Saline lock;Oxygen;NTG;Medication (comment) PIECER UP treatment comments: 324mg asa and 1 nitro ED Events Date/Time Event User Comments 07/03/241515 Medical Screening Begins MICHELLE MIRANDA MD -- 07/03/241515 First Provider Evaluation MICHELLE MIRANDA MD -- Chief Complaint Chief Complaint Patient presents with Chest Pain Shortness of Breath ED Triage Notes Wierzbicki, Chuckie D, RN 07/03/2024 15:17 Patient to ED for [...] N/A 02/19/2017 Surgeon: Fran Canchola MD; Location: [facility] OR [facility] ESOPHAGOGASTRODUODENOSCOPY N/A 07/20/2019 Surgeon: Maddi Ballesteros MD; Location: [facility] OR [facility] ESOPHAGOGASTRODUODENOSCOPY N/A 04/03/2021 Surgeon: Fran Trinh [...] 0.01 - 0.09 10*3/uL COMP. METABOLIC PANEL (16960) - Abnormal NA 141 135 - 145 [...] VW CBC WITH DIFF COMP. METABOLIC PANEL (49458) LIPASE TROPONIN I N-TERMINAL PRO-BNP Prothrombin Time [...] EKG Time 1518 Rate 99 Atrial paced [place] normal QTc prolonged Abnormal EKG MDM Patient [...] components within normal limits COMP. METABOLIC PANEL (60561) - Abnormal; Notable for the following components: [...] embolism) AdmissionCare documentation entered by: Michelle Miranda [facility] [place] [employer]ala[employer], 28th edition, Copyright ? 2023 [employer] All Rights Reserved. 5508-73-94V17:08:50-06:00 Medical Decision Making Problems Addressed: Chest pain, [...] is not hypoxic. Interpreted. Reassessment:stable Communication with oracle adf consultant: Internal Medicine Limitations to patient care [...] Appointments In 3 days Rebecca Michele MD [facility] Pain Management, [facility] In 1 week David Ladd MD [facility] Cardiology, [facility] In 1 week Brooks Barker NP [facility] REMOTE DEVICE [facility] [address] [place] [address] Cardiac Device [facility] In 4 months [facility]IC 1 [facility] Michelle Miranda Jr., MD Clinical It Applications Developer [facility] Emergency Department [employer] Dictation Software is used frequently and may produce errors. Promptly contact for obvious discrepancies. Michelle Miranda MD 07/03/242034 [facility] - Coruxj4988-51-64 15:12:00 Associated Order(s): Critical Care Critical Care [...] separately billable procedures and treating other patients. [facility]2024-12-01 15:12:00 AdmissionCare Guideline: Chest Pain - INPT, [...] AdmissionCare documentation entered by: Michelle Miranda [facility], 28th edition, Copyright ? 2023 [facility] HospitalApps [employer] [facility] All Rights Reserved. 4347-16-16F25:08:50-06:00 [facility]2024-11-20 13:45:37 Cande for [facility] HH notified. RAFAEL Duffy RNFlower HospitalXwppbl7340-40-12 13:00:54 Yes. I would be following patient with [facility]2024-11-20 10:44:12 Bryan Parada is a 58 year old male Cande with [facility] called wanting to know if PCP will follow pt for home health. Please advise. S BACK COUNTER MAN Madhuri JimenezFlower HospitalBznxdo1408-61-91 14:58:55 Patient notified of results. He verbalized understanding of results/recommendations. No further questions or concerns at this time. S BACK COUNTER MAN Jackie Mims RNFlower HospitalZpsgaq0327-11-18 12:40:14 Images from the original note were not included. Attempted to contact patient with results/recommendations. LV for patient to return call to [phone]. David Ladd MD P Cardiology Nurse Creatinine mildly elevated 1.8. Rest of the CMP within acceptable limits. NT-proBNP stable at 3740. Magnesium levels normal. Continue the cardiac medications without any further changes. Follow-up as planned S BACK COUNTER MAN No Montoya MAFlower HospitalGtnwiz1245-00-64 11:15:00 Images from the original note were not included. Venipuncture collection performed by clean technique on the left anticubitus. Total of 1 attempts were made. Slight pressure and a bandage/dressing were applied to the site(s). The patient experienced no complications. The following specimens were processed according to instructions and sent to [facility] laboratories per lab order on 06/20/2024 : LT BLUE SST 2 RED LAV 2 PPT DK GREEN (LiHep) DK GREEN (SodH) HERZOG DK BLUE (K2) DK BLUE (S) ACD Blood Culture NIPT/NTD Pt will bring urine back at later date [facility]2024-11-04 13:31:32 Images from the original note were not included. Notification MedWatchers placed in SEWER PIPE LAYER HELPER Dawna folder for review. RAFAEL ReynagaTammy [place] 523744-10-16 12:33:34 TRANSITIONAL CARE MANAGEMENT ASSESSMENT 05/18/2024 Bryan Parada [id number] Bryan Parada is a 58 year old Black or male was admitted on 05/15/24 to [facility] ICU. He was discharged on 05/17/24 with discharge disposition of HR- Routine Discharge. 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.) Do you [...] Phone 05/20/2024 2:00 PM Brooks Barker NP [facility] Adult & Geriatric Primary Care[address]864-3034 05/25/2024 3:00 PM Jeanna Kamara PA-C [facility] Health Gastroenterology, formerly [facility] [phone] 06/01/2024 10:00 AM David Ladd MD [facility] CardiologyGary [place] [phone] 06/23/2024 2:45 PM Danny Steele MD [facility] Eye [facility] [phone] 06/27/2024 10:30 AM David Ladd MD [facility] Cardiology, [place] [phone] 07/06/2024 3:00 PM Rebecca Michele MD [facility] [phone] 07/13/2024 11:30 AM Brooks Barker NP [facility] Adult & Geriatric Primary Care[address]864-[address]34 11/10/2024 9:00 AM [facility] 1 [facility] Cardiac Device Clinic, [phone] Flip Zavala [facility]NL[facility]ELACE [facility] - Dgifey4431-07-97 18:05:15 Problem: Falls, Risk of Goal: Absence [...] signs and symptoms of imbalanced fluid volume 05/17/2024 180 by Jane Singh RN Outcome: Resolved 05/17/2024843 by Jane Singh RN Outcome: Progressing as expected Problem: Infection, Risk of or Actual Goal: Absence of infection 05/17/20241804 by Jane Singh RN Outcome: Resolved 05/17/2024843 by Jane Singh RN Outcome: Progressing as expected Problem: Pain Goal: Control of pain at or below patient's documented comfort goal 05/17/20241804 by Jane Singh RN Outcome: Resolved 05/17/2024843 by Jane Singh RN Outcome: Progressing as expected Goal: Reduction in pain sensation 05/17/20241804 by Jane Singh RN Outcome: Resolved 05/17/2024843 by Jane Singh RN Outcome: Progressing as expected Problem: Respiratory Function - Impaired Goal: Adequate oxygenation 05/17/20241804 by Jane Singh RN Outcome: Resolved 05/17/2024843 by Jane Singh RN Outcome: Progressing as expected Goal: Adequate work of breathing 05/17/20241804 by Jane Singh RN Outcome: Resolved 05/17/2024843 by Jane Singh RN Outcome: Progressing as expected Problem: Skin integrity Impaired (Risk or Actual) Goal: Prevention of new skin breakdown 05/17/20241804 by Jane Singh RN Outcome: Resolved 05/17/2024843 by Jane Singh RN Outcome: Progressing as expected Problem: Venous Thromboembolism, (actual or risk of) Goal: Absence of venous thromboembolism (Risk) 05/17/20241804 by Jane Singh RN Outcome: Resolved 05/17/2024843 by Jane Singh RN Outcome: Progressing as expected Goal: Prevent further complications associated with VTE diagnosis (Actual) 05/17/20241804 by Jane Singh RN Outcome: Resolved 05/17/2024 0844 by Jane Singh RN Outcome: Progressing as expected Jane Singh Critical access hospitalOkzwxu8509-98-22 17:51:17 Problem: Falls, Risk of Goal: Absence [...] VTE diagnosis (Actual) Outcome: Adequate for discharge Suzie Pickett Critical access hospitalZhpybc4874-69-96 08:44:34 Problem: Falls, Risk of Goal: Absence [...] VTE diagnosis (Actual) Outcome: Progressing as expected [facility] - Ptekbc2711-34-69 22:34:48 Problem: Falls, Risk of Goal: Absence [...] of imbalanced fluid volume 05/16/20242233 by Kayy Heath RN Outcome: Progressing [...] (Actual) Outcome: Progressing as expected Kayy Heath Critical access hospitalQgvkbg5664-30-95 16:37:40 Problem: Falls, Risk of Goal: Absence [...] new skin breakdown Outcome: Progressing as expected Flower HospitalPcrgbj8522-08-12 06:42:41 Problem: Falls, Risk of Goal: Absence [...] new skin breakdown Outcome: Progressing as expected T Alex Bejarano Critical access hospitalIfmjbl8795-57-28 00:43:40 Problem: Falls, Risk of Goal: Absence [...] new skin breakdown Outcome: Progressing as expected T Flower HospitalXoudce1950-66-30 16:41:12 Problem: Falls, Risk of Goal: Absence [...] breakdown Outcome: Progressing as expected Kit Bowen Critical access hospitalZrjwmw7549-33-92 05:59:06 Problem: Falls, Risk of Goal: Absence [...] Respiratory Function - Impaired Goal: Adequate oxygenation 05/15/2024 0558 by Kim Sosa RN Outcome: Progressing as expected 05/15/2024 0558 by Kim Sosa RN Outcome: Progressing as expected Goal: Adequate work of breathing 05/15/2024 0558 by Kim Sosa RN Outcome: Progressing as expected 05/15/2024 0558 by Kim Sosa RN Outcome: Progressing as expected T [place] [address]-10-13 02:58:19 Patient refused second IV. Pretty Luna [place] [address]-10-13 02:05:10 Dr. Larios at bedside. T Blaine Britton [place] 961334-10-13 00:42:23 Patient complaining of shortness of breath. 2L NC placed for comfort [place] [address]-10-13 00:13:20 Pt to ED CO constant CP, SOB, and cough starting 05/14 approx 1000. Cough is dry. Denies nausea. [facility] Terri Samuel [place] 961334-10-13 00:12:49 [facility] by [facility], c/o chest pain, coughing & SOB that began yesterday per pt. States he also states when he walks or lays down the SOB worsens. Nitro x1 given PIECER UP Fiona Reynaga RNFlower HospitalYlmvyk3509-65-74 09:08:27 Images from the original note were [...] Barker NP Last refill: 04/20/2024 Rx #: [id number] Provider Review Required Vauhoz5405/05/2024 03:01 PM Protocol Details This refill cannot be delegated Valid encounter within last 12 months [facility] [facility]/pharmacy #[id number] [facility] [address] [place] [address] Last Refilled: 04/20/2024 Recent Visits Date Type Provider Dept 04/13/24 Office Visit Brooks Barker NP [facility] 04/13/24 Office Visit Brooks Barker NP [facility] 01/05/24 Office Visit Brooks Barker NP [facility] Showing recent visits within past 540 days with a meds authorizing provider and meeting all other requirements Future Appointments Date Type Provider Dept 07/13/24 Appointment Brooks Barker NP [facility] Showing future appointments within next 150 days with a meds authorizing provider and meeting all other requirements [facility]ox[facility]7834-[facility]-45 08:15:27 Images from the original note were not included. Routed to provider for review. Unable to refill per ambulatory refill guidelines. Notes: LIDOCAINE-PRILOCAINE 2.5-2.5 % cream Changed from: lidocaine 5 % ointment Possible duplicate: Yuri to review recent actions on this medication Sig: N/A Disp: Not specified Refills: 0 Start: 04/18/2024 Class: eRX For: Chronic pain of left knee Last ordered: Yesterday (04/18/2024) by Brooks Barker NP Last refill: 04/18/2024 Rx #: [id number] Pharmacy comment: Alternative Requested:THE PRESCRIBED MEDICATION IS NOT COVERED BY INSURANCE. PLEASE CONSIDER CHANGING TO ONE OF THE SUGGESTED COVERED ALTERNATIVES. Off-Protocol Xsmirj3104/18/2024 05:28 PM Protocol Details Medication not assigned to a protocol, forward to provider. Valid encounter within last 12 months This request has changes from the previous prescription. To be filled at: [facility]/pharmacy #[id number] - [place], [place] - [address] Last Refilled:Needs to be changed Recent Visits Date Type Provider Dept 04/13/24 Office Visit Brooks Barker NP [facility] 04/13/24 Office Visit Brooks Barker NP [facility] 01/05/24 Office Visit Brooks Barker NP [facility] Showing recent visits within past 540 days with a meds authorizing provider and meeting all other requirements Future Appointments Date Type Provider Dept 07/13/24 Appointment Brooks Barker NP [facility] Showing future appointments within next 150 days with a meds authorizing provider and meeting all other requirements [facility] - Xvrwsm4846-38-75 16:59:38 POC discussed with pt, referral line number given for orthopedics appt. Pt upset reports gel does not work for him, informed of referral to pain management as well did not verbalize wanting to proceed at this time. ER precautions given, pt states "I will no be going to the ER". Pt verbalizes understanding. Soni Duffy RNFlower HospitalKhqivn9929-86-81 16:48:58 Patient states he is still having knee and medications did not help. Please advise. Eliazar JanJanice [place] [address]-09-16 16:45:11 Patient returning missed call. Please advise. Eliazarperez MontoyaTammy [place] 523744-09-16 16:41:21 Left detailed VM, Pt to call clinic if further questions or concerns. [place] [address]-09-16 16:31:33 [place]'s not prescribed in clinic (Referral for pain management and also be initiated) Started on Methocarbamol and lidocaine gel. Referral placed for orthopedic surgery for further treatment options/knee injections. ER precautions T [place] 523744-09-16 16:18:50 Call placed pt, Pt reports he [...] they "mess my stomach up", and requesting [place]. Informed pt he may need to come in for an appt as this is a new problem. Pt would like message sent to provider. [place] [address]-09-16 16:03:27 Bryan Parada is a 58 year old male Calling because he's in pain and would like something for this.Pt is requesting dr adan howard Beata Pulido SachinFlower HospitalMbuwxc9651-44-96 14:32:37 TRANSITIONAL CARE MANAGEMENT ASSESSMENT 04/07/2024 Bryan Parada [id number] Bryan Parada is a 58 year old Black or male was admitted on 04/04/24 to [facility], [facility] SURG. He was discharged on 04/06/24 with discharge disposition of HR- Routine Discharge. Admitting Physician: Bj Weiss Discharge Diagnosis: Linked Episodes Type: Episode: Status: Noted: Resolved: Last update: Updated by: TRANSITION OF CARE tcm Active 04/06/2024 04/07/2024 2:30 PM Flip Zavala RN Comments: TCM Xzx-sdnt-ac-face outreach documentation: Discharge Assessment Chart Assessed: 04/07/24 [...] with the names or descriptions of any zyvx-ceu-mkayhbc or supplements you are currently taking?: Yes [...] Phone 04/13/2024 12:00 PM Brooks Barker NP [facility] Adult & Geriatric Primary [facility], [place] [phone] 04/13/2024 1:00 PM Brooks Barker NP [facility], [place] [phone] 04/18/2024 1:00 PM Rebecca Michele MD [facility] Pain Management, [facility] [phone] 04/25/2024 11:30 AM David Ladd MD [facility] Cardiology, [facility] [phone] 04/28/2024 10:00 AM [facility] 1 [facility] Cardiac Device Clinic, [facility] [phone] [facility] HospitalLpuqyr2142-64-49 11:52:06 Problem: Discharge Planning Goal: Adequate for [...] expected Goal: Reduction in pain sensation 04/06/2024 115 by Yamilex Hurt RN Outcome: Adequate for discharge 04/06/2024942 by Yamilex Hurt RN Outcome: Progressing as expected Problem: Skin integrity Impaired (Risk or Actual) Goal: Prevention of new skin breakdown 04/06/2024 115 by Yamilex Hurt RN Outcome: Adequate for discharge 04/06/2024942 by Yamilex Hurt RN Outcome: Progressing as expected Problem: Tissue Perfusion, Cardiopulmonary - Altered Goal: Circulatory function within specified parameters 04/06/2024 115 by Yamilex Hurt RN Outcome: Adequate for discharge 04/06/2024942 by Yamilex Hurt RN Outcome: Progressing as expected Problem: Falls, Risk of Goal: Absence of falls 04/06/20241151 by Yamilex Hurt RN Outcome: Adequate for [...] of) Goal: Absence of venous thromboembolism (Risk) 04/06/20241151 by Yamilex Hurt RN Outcome: Adequate for discharge 04/06/2024942 by Yamilex Hurt RN Outcome: Progressing as expected Problem: Glucose control Goal: Glucose level within specified parameters 04/06/2024 115 by Yamilex Hurt RN Outcome: Adequate for discharge 04/06/2024942 by Yamilex Hurt RN Outcome: Progressing as expected T Yamilex Hurt Critical access hospitalHavkqv6098-87-87 09:43:33 Problem: Discharge Planning Goal: Adequate for [...] within specified parameters Outcome: Progressing as expected [facility] HospitalUpcubm5473-38-35 22:17:23 Problem: Discharge Planning Goal: Adequate for [...] parameters Outcome: Progressing as expected Jitendra Rae Critical access hospitalFxyzdg0136-94-03 16:21:12 Images from the original note were not included. Sudha WangFlower HospitalAwvzzg0530-06-78 13:41:45 Problem: Discharge Planning Goal: Adequate for [...] within specified parameters Outcome: Progressing as expected [facility] HospitalDsoeqy7356-64-78 22:16:36 Problem: Discharge Planning Goal: Adequate for [...] parameters Outcome: Progressing as expected Antonieta Stoddard Critical access hospitalJfvszg6956-86-35 17:03:54 Problem: Discharge Planning Goal: Adequate for [...] within specified parameters Outcome: Progressing as expected [facility] HospitalXxtdhw6363-99-10 15:50:26 Nurse Report Report given to Yarelis Vieyra. Chief complaint, assessment findings. Zach Rodriguez RN Zach Rodriguez [place] 961334-09-02 13:31:52 Oxygen 91% on room air, placed on 2L NC, saturation up to 94% [place] 523744-09-02 11:56:54 Patient to ED for chest pain and shortness of breath when walking that started yesterday. Chuckie Bianchi Critical access hospitalCeoruy5841-60-50 11:50:00 EMERGENCY DEPARTMENT ENCOUNTER [facility]ly [facility] Patient Name: Bryan Parada Date of : 1965 58 year old Exam Room:[place] [address] Primary Care Physician: Brooks Barker Pre- Hospital Patient Escorted by: Self [9] Mode of Arrival: Personal means [1] EMS Treatment Prior to ED Arrival: PIECER UP treatment: None ED Events Date/Time Event User Comments 04/04/24 120 Medical Screening Begins MICHELLE MIRANDA MD -- 04/04/24 120 First Provider Evaluation MICHELLE MIRANDA MD -- [...] N/A 02/19/2017 Surgeon: Fran Canchola MD; Location: [facility] OR Location ESOPHAGOGASTRODUODENOSCOPY N/A 07/20/2019 Surgeon: Maddi Ballesteros MD; Location: [facility] OR Location ESOPHAGOGASTRODUODENOSCOPY N/A 04/03/2021 Surgeon: Fran [...] 0.01 - 0.09 10*3/uL COMP. METABOLIC PANEL (38548) - Abnormal NA 141 135 - 145 [...] vascular congestion. Preliminary Report Dictated by Resident: Jorge Torre I, Garret Rubio MD., have reviewed this study and agree with the above report. Orders and Treatments Orders Placed This Encounter Procedures Critical Care XR CHEST 1 VW CBC WITH DIFF COMP. METABOLIC PANEL (62726) TROPONIN I N-TERMINAL PRO-BNP Cbc without Diff Basic Metabolic Panel (NA, K, CL, CO2, GLUCOSE, BUN, CREATININE, CA) Magnesium Serum N-Terminal Pro-Bnp Hepatic Function Panel (68928) (ALB,T.PRO,BILI T,BU/BC,ALT,AST,ALK PHOS) Troponin I POCT GLUCOSE (AUTOMATED) POCT GLUCOSE (AUTOMATED) POCT GLUCOSE (AUTOMATED) POCT GLUCOSE (AUTOMATED) Consult Cardiology Consult Control Area Operator-Adult Orders Placed This Encounter Medications nitroglycerin (NITROSTAT) [...] EKG Time 1202 Rate 85 Atrial paced [place] normal Abnormal EKG MDM Patient was evaluated [...] components within normal limits COMP. METABOLIC PANEL (31050) - Abnormal; Notable for the following components: [...] Positive: Heart Failure Likely HEPATIC FUNCTION PANEL (75951) (ALB,T.PRO,BILI T,BU/BC,ALT,AST,ALK PHOS) - Abnormal; Notable for [...] 3)) AdmissionCare documentation entered by: Michelle Miranda [facility] [place] [employer], 28th edition, Copyright ? 2023 [employer] All Rights Reserved. [id number]:16:36-05:00 Medical Decision Making Problems Addressed: Chest pain, [...] is not hypoxic. Interpreted. Reassessment:stable Communication with oracle adf consultant: None. Limitations to patient care and [...] - Observation Condition -- Comment Treatment Team: [facility] [[id number]] Current Discharge Medication List STOP taking these [...] Stopping: Future Appointments Tomorrow David Ladd MD [facility] Health Cardiology, [facility] In 2 days Brooks Barker NP [facility] Adult & Geriatric Primary Care, [facility] In 2 weeks Rebecca Michele MD [facility] Health Pain Management, [facility] In 3 weeks [facility] 1 [facility] Cardiac Device Clinic, [facility] Michelle Miranda Jr., MD Clinical It Applications Developer [facility] Emergency Department [employer] Dict[employer] is used frequently and may produce errors. Promptly contact for obvious discrepancies. Michelle Miranda MD 04/05/24 3027 [facility]2024-09-02 11:50:00 Associated Order(s): Critical Care Critical Care [...] separately billable procedures and treating other patients. [facility]2024-09-02 11:50:00 AdmissionCare Guideline: Chest Pain - [...] AdmissionCare documentation entered by: Michelle Miranda [facility], 28th edition, Copyright ? 2023 [facility] HospitalApps [employer] [facility] All Rights Reserved. [id number]:16:36-05:00 [facility] HospitalIbnezm5211-79-62 11:12:07 Referral placed for patient. T [facility] HospitalNvkmzg1351-68-59 10:37:18 Pt is needing a referral for his cardiology visit. Please advise. Thank you. Taye LakhaniFlower HospitalEdeujh9787-06-59 21:53:49 Pt given printed and verbal discharge [...] gait, in no apparent distress. Nadege Higuera RNFlower HospitalYynxps0889-47-01 19:32:51 L knee swelling started last Thursday, Reports not being able to walk on it. Surgical hx or R knee replacement. Jason Mcnair RNFlower HospitalHvmdvv5796-50-20 15:43:13 Images from the original note were not included. Sudha WangFlower HospitalQhcpic1225-71-49 15:06:59 Left detailed message with referral line number given. Soni Duffy RNFlower HospitalPxltco1466-75-95 13:34:36 1. Chronic pain of left knee Has the pain been seen by ortho? - Consult/Referral Pain Clinic [facility] HospitalNqfumk6418-84-68 13:31:02 Routing to provider for review. Fiona Mendoza MAFlower HospitalEuixda2928-38-86 13:23:19 Copied from [facility] #[id number]. 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 Patient is requesting a referral to: Dept: Pain MD Reason for referral: Pain in left knee Duration of problem: na Internal / External referral: internal Name of provider / location patient requesting: na Appt already scheduled?: no Jolene GrayFlower HospitalDhvhwy1440-58-58 08:09:18 Images from the original note were not included. Chasity ReynagaFlower HospitalBmfkly0821-49-77 15:29:22 We have not attempted to contact pt, left detailed message, pt to call clinic if he requires more assistance. 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 Soni Duffy RNFlower HospitalMscttz7030-70-56 09:39:03 Bryan Parada is a 58 year old male Pt is calling to find out if the forms he dropped off on 6.12 has been completed Cate MagallanesCarolinas ContinueCARE Hospital at Kings MountainDaigfr3621-04-02 11:47:53 Form has been placed in ROHIT Toney folder for completion. Soni Duffy RNJanice Ville 84[address]-06-12 10:12:47 SSI form drop-off, placed in nurse fax folder Chasity ReynagaTammy [place] 523744-04-24 14:12:58 Dr. Ladd's note and repeat lab orders faxed to [facility]. Jackie Mims Critical access hospitalYdptmb6901-38-16 13:05:28 Notified [facility] Via fax per Dr Ladd with clinical notes. [place] 710204-04-22 21:14:19 Recommended repeat labs to be done in around 2 to 3 weeks time. Continue the current cardiac medication without any further changes. Orders placed. Labs 11.19.2023 reviewed NT-proBNP elevated at 2049. Lipid panel acceptable. CMP shows mildly elevated creatinine at 2.05. LFTs within normal limits. TSH within normal limits CBC within acceptable stable limits. Magnesium within normal limits. MAR from the patient's group home reviewed in detail from cardiac standpoint. Patient noted to be hydralazine 25 twice daily, Eliquis 5 mg twice daily, Lasix 40 twice daily, Lipitor 40 mg daily, aspirin 81 daily, magnesium oxide 400 daily, lisinopril 2.5 mg daily, Jardiance 10 mg daily, spironolactone 25 daily, carvedilol 25 twice daily [place] 710204-04-18 08:30:00 Images from the original note were not included. Venipuncture collection performed by clean technique on the right anticubitus. Total of 1 attempts were made. Slight pressure and a bandage/dressing were applied to the site(s). The patient experienced no complications. The following specimens were processed according to instructions and sent to [facility] laboratories per lab order on 11/19/2023 : LT BLUE SST 1 RED LAV 1 PPT DK GREEN (LiHep) DK GREEN (SodH) HERZOG DK BLUE (K2) DK BLUE (S) ACD Blood Culture NIPT/NTD T [facility] HospitalQypjdu0494-55-65 14:30:00 NT-proBNP elevated at 2049. Lipid panel acceptable. CMP shows mildly elevated creatinine at 2.05. LFTs within normal limits. TSH within normal limits CBC within acceptable stable limits. Magnesium within normal limits. Please reach out to [facility] to get the current medication list that he has been taking now so we can make further dose adjustment. [facility]2024-01-04 09:49:23 LVM to call clinic for TTE results and recommendations , letter sent RAFAEL Kerr [place] 961334-01-03 09:34:40 Images from the original note were not included. LVM #2 to call clinic for results of TTE David Ladd MD P Cardiology Nurse Echocardiogram shows severe LVH with severely reduced LV systolic function 15 to 20%. No other significant changes noted. Follow-up as planned. RAFAEL Kerr [place] 961334-01-02 14:47:42 Images from the original note were not included. LVM to call clinic for results of TTE David Ladd MD P Cardiology Nurse Echocardiogram shows severe LVH with severely reduced LV systolic function 15 to 20%. No other significant changes noted. Follow-up as planned. S BACK COUNTER MAN Flower HospitalChozez2127-59-06 05:54:44 Pt given printed and verbal discharge [...] leaving via EMS, in no apparent distress. [place] 710203-08-26 02:51:11 Requested wheelchair van from [facility], spoke with Denise. ETA 120 minutes, around 0500. [place] 710203-08-25 20:21:06 Pt brought in by ems for bleeding after having bowel movement today bright red blood, right flank pain after bowel movement. 20 G to the right AC. T Jasper Copeland RNTammy Ville 523743-08-25 20:19:00 [facility] Emergency Department Note Patient Name: Bryan Parada Date of : 1965 57 year old male [id number] Primary Care Physician: Kim Jones Patient Escorted by: Self [9] Mode of Arrival: EMS - [facility] ([place]) [43] EMS Treatment Prior to ED Arrival: [...] 2.5 mg POQD. History provided by: Patient tenter frame operator used: No Past Medical History/Immunizations: Past Medical [...] N/A 02/19/2017 Surgeon: Fran Canchola MD; Location: [facility] OR Location ESOPHAGOGASTRODUODENOSCOPY N/A 07/20/2019 Surgeon: Maddi Ballesteros MD; Location: [facility] OR [facility] ESOPHAGOGASTRODUODENOSCOPY N/A 04/03/2021 Surgeon: Fran Trinh [...] with multi lead pacemaker. RL: 460 AFC: 56140 Lab Results: Lab Results CBC WITH DIFF [...] 0.01 - 0.09 10*3/uL COMP. METABOLIC PANEL (83692) - Abnormal NA 138 135 - 145 [...] CONTRAST CBC WITH DIFF COMP. METABOLIC PANEL (71339) URINALYSIS OCCULT (GUAIAC) BLOOD Orders Placed This [...] as of 03/28/23226 Sat Mar 28, 2023 0124 PMHX: CRI [KV] 0124 RDW-CV(!): 16.4 [KV] [...] MD Specialty: IM-GERIATRIC MEDICINE Relationship: PCP - [address] [place] [address] Electronically signed by: Jorge Yañez NP 03/28/23226 Associated attestation - Doris Amaral MD - 03/28/2023 3:21 AM CDT Addendum I was personally available for consultation in the Emergency Department during this encounter and patient evaluation by ROHIT Yañez. 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 known CAD, CHF Cath Procedure Cath Procedure Start date: 03/01/21 Start time: 929 Pre-procedure diagnosis: CHF Post-procedure diagnosis: cardiomyopathy Procedure performed: diag coronary angiography, left heart cath Total contrast volume (mls): 40 ml Performed by: Anaya Nieto MD Staff Anesthetist(s): Iris Mckeon Procedure details: Right POCKET AND PULLEY MACHINE OPERATOR Access The right common femoral artery was [...] none Implants: none at 1326 RPT #: [id number] END OF REPORT [id number] 12:50:00 [facility] ([facility]) Cardiology Consultation REPORT#:[id number] REPORT STATUS: Signed DATE:03/01/21 TIME:1250 PATIENT: BRYAN PARADA UNIT #: [id number] ROOM/BED: [place] [address] : [birth year] AGE: 55 SEX: M ATTEND: [...] breath sounds Lower extremity: LE assessment: edema Neuro/HAT FINISHER: left hemiparesis, alert, oriented X 3 Diagnosis, [...] residula left hemiparesis Continue medicla therapy Needs [facility] at 1335 RPT #: [id number] END OF REPORT [id number] 16:20:[id number] [facility] [address] [place] [address] PATIENT NAME: BRYAN PARADA ADMIT DATE: 02/27/21 ACCOUNT NO: [id number] ROOM NO: [facility] AGE: 55 REPORT TYPE: eECHOCARDIOGRAM REPORT SEX: M ADMITTING PHYSICIAN: Stephan Juan MD ATTENDING PHYSICIAN: Stephan Juan MD *[facility]* [address] [place] [address] Transthoracic Echocardiogram Patient: Bryan Parada Study Date: 02/28/2021 BP: Location: [facility] URN: [id number] : 1965 Age: 55 Height: 74 in / 188 cm Gender: M Weight: 321.2 lb / 146 kg BMI/BSA: 41.3 kg/m 2 / 2.82 m 2 *Ordering Physician: Stephan Llamas *Interpreting Physician: * Anaya Nieto *Pump Installation And Servicer: Sumanth Sanchez Indications: Chest Pain, unspecified. Study data: Transthoracic [...] at 1620 PATIENT NAME: BRYAN PARADA 10:38:00 [facility] Hospitalist Progress Note REPORT#:[id number] REPORT STATUS: Signed DATE:02/28/21 TIME:1038 PATIENT: BRYAN PARADA UNIT #: [id number] ROOM/BED: [place] [address] : [birth year] AGE: 55 SEX: M ATTEND: [...] Musculoskeletal: normal inspection, straight leg raise neg Neuro/HAT FINISHER: alert, oriented X 3, normal speech Skin: [...] Report Impression - Status: SIGNED Entered: 02/27/2021 4062 IMPRESSION: Less congestive appearance of the chest [...] hx of HTN at 1045 RPT #: [id number] END OF REPORT [id number] 20:27:00 [facility] ([facility]) Hospitalist History Physical REPORT#:[id number] REPORT STATUS: Signed DATE:02/27/21 TIME:2026 PATIENT: BRYAN PARADA UNIT #: [id number] [facility] AGE: 55 SEX: M ATTEND: Stephan Juan MD ADM AUTHOR: Eliazar Napier SEWER PIPE LAYER HELPER * ALL edits or amendments must be [...] Musculoskeletal: normal inspection, straight leg raise neg Neuro/HAT FINISHER: alert, oriented X 3, normal speech [place] Coma Score: [facility] Copyright [facility] Eye opening: (4) Spontaneous Verbal response: (5) [...] DBP >/= 90 at 2105 RPT #: [id number] END OF REPORT [id number] 20:27:00 [facility] ([facility]) Hospitalist History Physical REPORT#:[id number] REPORT STATUS: Signed DATE:02/27/21 TIME:2026 PATIENT: BRYAN PARADA UNIT #: [id number] ROOM/BED: [place] [address] : [birth year] AGE: 55 SEX: M ATTEND: [...] Musculoskeletal: normal inspection, straight leg raise neg Neuro/HAT FINISHER: alert, oriented X 3, normal speech [place] Coma Score: Copyright Sir Greg Carver Copyright [...] SCAN - CTA CHEST FOR PE 02/27 6640 Report Impression - Status: SIGNED Entered: 02/27/2021 5107 IMPRESSION: 1. No evidence for pulmonary embolism, aneurysm or dissection. 2. Cardiomegaly with left ventricular configuration. Pacemaker in place with no cardiac decompensation. 3. Otherwise no acute findings in the chest. Impression By: VikramCONFLUENCE HEALTH Ye Marsh M.D. Results: labs reviewed Diagnosis, [...] with: patient Code status: full code Quality: [facility] Current Medications Current medication review: I [...] 90 at 2105 at 1659 RPT #: [id number] END OF REPORT [id number] 14:36:00 [facility]) EMERGENCY PROVIDER REPORT REPORT#:[id number] REPORT STATUS: Signed DATE:02/27/21 TIME:1436 PATIENT: BRYAN PARADA UNIT #: [id number] ROOM/BED: [place] [address] : 67 AGE: 55 SEX: M PCP [...] Interpretation Text/Dict Note time 1225 interpreted by va atrial-ventricular paced rhythm, rate 89, no sgarbossa [...] this patient's care. at 2320 RPT #: [id number] END OF [id number] 12:25:[id number] [facility] [address] [place] [address] PATIENT NAME: BRYAN PARADA ADMIT DATE: 02/28/21 ACCOUNT NO: [id number] ROOM NO: [place] [address] AGE: 55 REPORT TYPE: eELECTROCARDIOGRAM SEX: M ADMITTING PHYSICIAN: Stephan Juan MD ATTENDING PHYSICIAN: Stephan Juan MD Order: [id number] Test Reason : CP Test Date/Time Stamp: ThuFeb 27 2021 12:25:42 Blood Pressure : / mmHG Vent. Rate : 089 BPM Atrial Rate : 089 BPM P-R Int : 156 ms QRS Dur : 174 ms QT Int : 458 ms P-R-T Axes : -16 111 -22 degrees QTc Int : 557 ms Artifact is present Confirmed by MD Emilia, Anaya ([id number]) on 03/28/2021 3:29:47 PM Referred By: Isac Rouse Confirmed by:Anaya Nieto MD at 1530 PATIENT NAME: BRYAN PARADA 16:12:00 [facility] ([facility]) Discharge Summary REPORT#:[id number] REPORT STATUS: Signed DATE:02/09/21 TIME: 1612 PATIENT: BRYAN PARADA UNIT #: [id number] ROOM/BED: [facility]-1 : 66 AGE: 55 SEX: M ATTEND: [...] Discharge Instructions Additional Discharge Routines: PCP Follow-Up, Barrel Drum Cutter Follow-Up, Fluid Restrictions, F/U Labs/Procedures )( Diet: [...] prophylaxis initiated: yes (Lovenox) at 1613 RPT #:[id number] END OF [id number]:43:[id number] [place] [address] PATIENT NAME: BRYAN PARADA ADMIT DATE: 02/04/21 ACCOUNT NO: [id number] ROOM NO: [facility] AGE: 55 REPORT TYPE: eECHOCARDIOGRAM REPORT SEX: M ADMITTING PHYSICIAN:Precious Bae MD ATTENDING PHYSICIAN:Precious Bae MD *[place] [address] Transthoracic Echocardiogram Patient: Bryan Parada Study Date: 02/05/2021 BP: 139 / 85 Location: [facility] URN: [id number] : 1965 Age: 55 Height: 73.6 in / 187 cm Gender: M Weight: 220 lb / 100 kg BMI/BSA: 28.6 kg/m 2 / 2.3 m 2 *Ordering Physician: * Precious Bae *Interpreting Physician: * Mervat Conroy MD *Pump Installation And Servicer: * Opal Young Indications: Chest Pain, cardiomyopathy. [...] 3.5 --------- Pulmonic valve Value 01/03/2021 Ref CO peak v 1.63 m/sec 1.39 --------- CO peak 11 mm Hg 8 --------- grad [...] at 1444 PATIENT NAME: BRYAN PARADA 13:56:00 [facility] Hospitalist Progress Note REPORT#:[id number] REPORT STATUS: Signed DATE:02/06/21 TIME: 1356 PATIENT: BRYAN PARADA UNIT #: [id number] ROOM/BED: [facility]-1 : 66 AGE: 55 SEX: M ATTEND: [...] sounds, soft Extremities: moves all, no edema Neuro/HAT FINISHER: alert, oriented X 3, normal speech Skin: [...] (Auto) (14.0 - 32.0 %) 42.8 H [place] % (Auto) (4.8 - 9.0 %) 10.5 H Eos % (Auto) (0.3 - 3.7 %) 1.9 Baso % (Auto) (0.0 - 2.0 %) 0.4 Neut # (Auto) (2.0 - 7.6 x10 3/uL) 2.28 Lymph # (Auto) (1.0 - 3.8 x10 3/uL) 2.21 [place] # (Auto) (0.1 - 0.8 x10 3/uL) [...] cardiology for discharge and outpatient follow-up Quality: [facility] Current Medications Current medication review: I attest that the foregoing medication list in the medical record is true, accurate, and complete to the best of my knowledge. VTE Prophylaxis VTE prophylaxis initiated: yes (Lovenox) at 1402 RPT #:[id number] END OF [id number] 10:48:00 [facility] ([facility]) Cardiology Progress Note REPORT#:[id number] REPORT STATUS: Signed DATE:02/06/21 TIME: 1048 PATIENT: BRYAN PARADA UNIT #: [id number] ROOM/BED: [facility] : 66 AGE: 55 SEX: M ATTEND: Precious Bae MD ADM AUTHOR: Jolene Heath SEWER PIPE LAYER HELPER * ALL edits or amendments must be [...] 0835 Furosemide 20 MG BID@0900,1700 02/05 900 02/06 PO 03/07 0859 0836 Lisinopril 5 [...] Q5M PRN PRN 02/04 2115 02/05 SL 03/0658 Nitroglycerin 0.4 MG Q5M PRN PRN 02/04 [...] [address] Conroy or his recycling crew supervisor at 1129 RPT #:[id number] END OF [id number] 10:48:00 [facility] ([facility]) Cardiology Progress Note REPORT#:[id number] REPORT STATUS: Signed DATE:02/06/21 TIME: 1048 PATIENT: BRYAN PARADA UNIT #: [id number] ROOM/BED: [place] [address] : 67 AGE: 55 SEX: M ATTEND: Precious Bae MD ADM AUTHOR: Jolene Heath SEWER PIPE LAYER HELPER * ALL edits or amendments must be [...] Carvedilol 25 MG BID MEALS 02/05 08 AC 02/06 PO 03/07 0759 0836 Enoxaparin [...] [address] Conroy or his recycling crew supervisor at 1129 at 1048 RPT #:[id number] END OF [id number] 13:27:00 [facility] ([facility] Hospitalist Progress Note REPORT#:[id number] REPORT STATUS: Signed DATE:02/05/21 TIME: 1327 PATIENT: BRYAN PARADA UNIT #: [id number] [facility] : [facility] AGE: 55 SEX: M ATTEND: [...] sounds, soft Extremities: moves all, no edema Neuro/HAT FINISHER: alert, oriented X 3, normal speech Skin: dry, intact Psychiatry: normal affect, normal judgment/insight Results Findings/Data: Laboratory Tests 02/053 6 2 Chemistry Sodium (134 - 147 mEq/L) 141 [...] Ratio (3.43 - 4.97 RATIO) 6.16 H 02/042 2120 Chemistry POC Glucose (70 - 110 MG/DL) [...] (Auto) (14.0 - 32.0 %) 43.2 H [place] % (Auto) (4.8 - 9.0 %) 12.0 H Eos % (Auto) (0.3 - 3.7 %) 2.3 Baso % (Auto) (0.0 - 2.0 %) 0.4 Neut # (Auto) (2.0 - 7.6 x10 3/uL) 2.19 Lymph # (Auto) (1.0 - 3.8 x10 3/uL) 2.26 [place] # (Auto) (0.1 - 0.8 x10 3/uL) [...] patient, answered all the questions. Quality: Gen [facility] Current Medications Current medication review: I attest that the foregoing medication list in the medical record is true, accurate, and complete to the best of my knowledge. VTE Prophylaxis VTE prophylaxis initiated: yes (Lovenox) at 1341 RPT #:[id number] END OF [id number] 08:09:00 [facility] ([facility]) Cardiology Consultation REPORT#:[id number] REPORT STATUS: Signed DATE:02/05/21 TIME: 808 PATIENT: BRYAN PARADA UNIT #: [id number] [facility] AGE: 55 SEX: M ATTEND: [...] and CVA in 01/21. Patient presented to [facility] with complaints of chest pain. Patient states he was laying down last night when symptoms started, describes this as 10 out of 10, substernal, continuous, associated with lower extremity swelling and shortness of breath. His symptoms continued throughout the night, taking aspirin and nitro twice did not alleviate the pain. He presented to [facility] where work-up showed mildly elevated troponin at [...] 02/05 618 70 22 139/85 103 98 02/058 36.6 71 15 141/102 95 02/05 0201 73 15 126/79 94 94 Room air 02/04 2301 81 17 139/72 94 95 Room air 02/049 80 20 146/89 108 99 Room air 02/04 2101 80 17 146/89 108 99 Room air 02/05 2008 36.7 83 22 150/89 109 100 Room air 24 hour I O ending at 0700: 02/05 0700 07 1900 Intake Total Output Total Balance Patient [...] temperature, 2+ peripheral pulses Musculoskeletal: normal inspection Neuro/HAT FINISHER: alert, oriented X 3, normal speech Skin: [...] strongly encourage lifestyle changes at 1102 RPT #:[id number] END OF [id number] 08:09:00 [facility] ([facility]) Cardiology Consultation REPORT#:[id number] REPORT STATUS: Signed DATE:02/05/21 TIME: 808 PATIENT: BRYAN PARADA UNIT #: [id number] ROOM/BED: [place] [address] : 67 AGE: 55 SEX: M ATTEND: Precious Bae MD ADM AUTHOR: Jolene Heath SEWER PIPE LAYER HELPER * ALL edits or amendments must be [...] and CVA in 01/21. Patient presented to [facility] with complaints of chest pain. Patient states he was laying down last night when symptoms started, describes this as 10 out of 10, substernal, continuous, associated with lower extremity swelling and shortness of breath. His symptoms continued throughout the night, taking aspirin and nitro twice did not alleviate the pain. He presented to [facility] where work-up showed mildly elevated troponin at [...] 10 MG DAILY 02/05 900 PO 03/07 0859 Aspirin 81 MG DAILY 02/05 900 PO [...] 02/05 618 70 22 139/85 103 98 02/058 36.6 71 15 141/102 95 02/05 0201 73 15 126/79 94 94 Room air 02/04 2301 81 17 139/72 94 95 Room air 02/04 2149 80 20 146/89 108 99 Room air 02/04 2101 80 17 146/89 108 99 Room air 02/05 2008 36.7 83 22 150/89 109 100 Room air 24 hour I O ending at 0700: 02/05 190 Intake Total Output Total Balance Patient 90.9 [...] temperature, 2+ peripheral pulses Musculoskeletal: normal inspection Neuro/HAT FINISHER: alert, oriented X 3, normal speech Skin: [...] lifestyle changes at 1102 at 1047 RPT #:[id number] END OF [id number] 21:11:00 [facility] ([facility]) Hospitalist History Physical REPORT#:[id number] REPORT STATUS: Signed DATE:02/04/21 TIME: 2110 PATIENT: BRYAN PARADA UNIT #: [id number] ROOM/BED: [place] : 67 AGE: 55 SEX: M ATTEND: Precious Bae MD ADM AUTHOR: Precious Bae MD * ALL edits or amendments must be made on the electronic/computer document * History of Present Illness HPI Chief complaint: Transfer from [facility] for chest pain PCP: PCP: No Primary or Family Physician HPI: Patient is 55-year-old male with past medical history significant for severe systolic and diastolic CHF status post AICD, diabetes mellitus type 2, hypertension, dyslipidemia and recent cath on 12/04 suggestive of nonobstructive CAD. Patient presented to [facility] with complaints of chest pain. Patient states he was laying down last night when symptoms started, describes this as 10 out of 10, substernal, continuous, associated with swelling and shortness of breath. His symptoms continued throughout the night, taking aspirin and nitro twice did not alleviate the pain. He presented to [facility] where work-up was suggestive of mildly elevated [...] sounds, soft Extremities: moves all, no edema Neuro/HAT FINISHER: alert, oriented X 3, normal speech Skin: dry, intact Psychiatry: normal affect, normal judgment/insight Results Findings/Data: Specimen Inquiry Report [facility] Med.Director: Dago Barraza MD PATIENT: BRYAN PARADA LOC: [facility] U# : [id number] FD: .DNK OD: .SELF AGE/SX: 55/M ROOM: RE02/04/21 RESDR: Isac Rouse STATUS: DEP ER BED: DIS: SPEC #: [id number] JACIEL: 02/04/21 STATUS: COMP REQ # : [id number] RECD: 02/04/21-[address]: Isac Rouse DO ENTERED: 02/04/21-[address]: No Primary or Family Physician [...] 7.0-9.6 fL Patient: BRYAN PARADA Age/Sex: 55/M Acct#[id number] Unit#[id number] Specimen Inquiry Report [facility] Med.Director: Dago Barraza MD PATIENT: BRYAN PARADA LOC: [place] U# : [id number] FD: .DNK OD: .SELF AGE/SX: 55/M ROOM: RE02/04/21 RESDR: Isac Rouse STATUS: DEP ER BED: DIS: SPEC #: [id number] JACIEL: 02/04/21 STATUS: COMP REQ # : [id number] RECD: 02/04/[address]: Isac Rouse DO [...] by method. Patient: BRYAN PARADA Age/Sex: 55/M Acct#[id number] Unit#[id number] Radiology data: [facility] Name: BRYAN PARADA [address]: [place] [address] : 1965 Age: 55 Sex: M Acct: [id number] [facility] Phone #: [phone] Exam Date: 02/04/2021 Status: [facility] ER Fax #: Radiology No: Unit No: [id number] Exams: CPT: [id number] [place] [id number] EXAM: - CTA CHEST FOR PE LOCATION: [...] defibrillator PAGE 1 Signed Report Printed From [facility] (Continued) [facility] Name: BRYAN PARADA [address]: [place] [address] : 1965 Age: 55 Sex: M Acct: [id number] Loc: [facility] Phone #: [phone] Exam Date: 02/04/2021 Status: DEP ER Fax #: Radiology No: Unit No: [id number] Exams: CPT: [id number] [place] [id number] <Continued> is noted with leads in appropriate [...] Technologist: RT Stephanie(R) Transcribed Date/Time: 02/04/2021 (1611) Desktop Support Associate: [email or web address] Orig Print D/T: S: 02/04/2021 (5645) PAGE 2 Signed Report Printed From [facility] [...] answered all the questions. Consultants: cardiology Quality: [facility] Current Medications Current medication review: I attest that the foregoing medication list in the medical record is true, accurate, and complete to the best of my knowledge. VTE Prophylaxis VTE prophylaxis initiated: yes (Lovenox) Heart Failure:DC on BB,LANA/ARB HF DC medications: EF: <20% LANA / ARB / ARNI at discharge: Yes Beta-Brii at discharge: Yes Specific beta biri: carvedilol at 9354 RPT #:[id number] END OF [id number] 20:10:00 [facility] ([facility]) EMERGENCY PROVIDER REPORT REPORT#:[id number] REPORT STATUS: Signed DATE:02/04/21 TIME: 2009 PATIENT: BRYAN PARADA UNIT #: [id number] ROOM/BED: [place] AGE: 55 SEX: M PCP [...] History - Adult Stated Complaint TRANSFER FROM [facility] Allergies Coded Allergies: No Known Allergies (11/30/20) [...] PRN PRN 02/04 2015 DC PO 02/05 191 Hydrocodone Bitart/ 1 TAB Q4H PRN PRN 02/04 2015 DC Acetaminophen PO 02/05 1913 Morphine Sulfate 4 MG Q4H PRN PRN 02/04 2015 DC IV 02/05 191 Electrolytic, Caloric, And Winston Sig/Mira Start time Last Medication Dose Route Stop Time Status Admin Dextrose/Water 25 ML ASDIR PRN 02/04 2015 DC IV 02/05 191 Dextrose/Water 50 ML ASDIR PRN 02/04 2015 [...] Lab results, Need for admission at 0600 [facility] #:[id number] END OF [id number] 15:08:00 [facility] ([facility]) EMERGENCY PROVIDER REPORT REPORT#:[id number] REPORT STATUS: Signed DATE:02/04/21 TIME:1508 PATIENT: BRYAN PARADA UNIT #: [id number] ROOM/BED: : 66 AGE: 55 SEX: M [...] medications. Patient states in October 2020 at [facility] he did receive in the pacemaker/AED. [...] the HEART score. Net Heart J. 2008 Geronimo:16(6):191-6. PubMed PMID: [id number]; PubMed Central PMCID: [id number]. Jose Carlos SEQUEIRA, Jag QUINONES, et al. A prospective validation of the HEART score for chest pain patients at the emergency department. Int J Cardiol. 2013 May 3:168(3):2153 -8. Doi: 10.1016/j.ijcard.2013..255. Epub 2012Oct 07. PubMed PMID: 84177436. Review of Systems ROS Statements All systems [...] - 7.0 pH UNITS) 5.5 Ur Specific [place] (1.005 - 1.030 SG) 1.015 Urine Protein [...] 2 MG X1ED STA 02/04 1723 DC /05 IV 07/05 1724 1738 Aspirin 324 MG X1ED STA 07/ 1302 DC 07/05 PO 07/05 1303 1315 [...] 1550 1549 Furosemide 40 MG X1ED STA / 1522 DC 07/05 IV 07/05 1523 1540 Patient Discharge Departure Vital Signs/Condition Vital Signs First Documented: Result Date Time Pulse Ox 98 / 1300 B/P 182/120 / 1300 B/P Mean 140 / 1300 O2 Delivery Room air 02/04 1300 Temp 37.0 / 1300 Pulse 84 / 1300 Resp 18 / 1300 Last Documented: Result Date Time Pulse Ox 96 02/04 191 B/P 155/102 / 1916 B/P Mean 119 / 191 O2 Delivery Room air 02/04 191 Temp 36.9 02/04 191 Pulse 71 / 191 Resp 20 / 191 All vital signs available at the time of this entry have been reviewed. Condition Stable Clinical Impression Clinical Impression Primary Impression: Chest pain Secondary Impressions: CHF (congestive heart failure), NSTEMI (non-ST elevated myocardial infarction) Disposition Decision Transfer )( Request Time 1522 )( Request Date 02/04/21 at 1019 RPT #: [id number] END OF [id number] 15:08:00 [facility] ([facility]) EMERGENCY PROVIDER REPORT REPORT#:[id number] REPORT STATUS: Signed DATE:02/04/21 TIME:1508 PATIENT: BRYAN PARADA UNIT #: [id number] ROOM/BED: : 66 AGE: 55 SEX: M [...] medications. Patient states in October 2020 at [facility] he did receive in the pacemaker/AED. [...] coronary arterial occlusion and . References: Jag AJ, Jose Carlos BE, et al. Chest pain in the emergency room: value of the HEART score. Net Heart J. 2008 Geronimo:16(6):191-6. PubMed PMID: [id number]; PubMed Central PMCID: [id number]. Jose Carlos SEQUEIRA, Jag QUINONES, et al. A prospective validation of the HEART score for chest pain patients at the emergency department. Int J Cardiol. 2013 May 3:168(3):2153 -8. Doi: 10.1016/j.ijcard.2013..255. Epub 2012Oct 07. PubMed PMID: 30856168. Review of Systems ROS Statements All systems [...] - 7.0 pH UNITS) 5.5 Ur Specific [place] (1.005 - 1.030 SG) 1.015 Urine Protein [...] Time Status Admin Iopamidol 0 .STK-MED ONE 07/05 1523 DC 07/05 .ROUTE 1548 Electrolytic, Caloric, And Winston Sig/Mira Start time Last Medication Dose Route Stop Time Status Admin Sodium Chloride 100 ML .STK-MED ONE / 1549 DC 07/05 IV 07/05 1550 1549 Furosemide 40 MG X1ED STA 07/05 1522 DC 07/05 IV 07/05 1523 1540 Patient Discharge Departure Vital Signs/Condition Vital Signs First Documented: Result Date Time Pulse Ox 98 07/05 1300 B/P 182/120 /05 1300 B/P Mean 140 07/05 1300 O2 Delivery Room air 07/ 1300 Temp 37.0 07/05 1300 Pulse 84 07/05 1300 Resp 18 07/05 1300 Last Documented: Result Date Time Pulse Ox 96 /1915 B/P 155/102 / 191 B/P Mean 119 / 191 O2 Delivery Room air 02/05 1916 Temp 36.9 /1915 Pulse 71 /1915 Resp 20 /1915 All vital signs available [...] Saw Pt Alone I have reviewed the PA/SEWER PIPE LAYER HELPER's note and plan of care. I was available for consultation as needed at all times during the patient's visit in the emergency department. I agree with the clinical impression, plan and disposition. at 1019 RPT #: [id number] END OF [id number] 15:08:00 [facility] ([facility]) EMERGENCY PROVIDER REPORT REPORT#:[id number] REPORT STATUS: Signed DATE:02/04/21 TIME:1508 PATIENT: BRYAN PARADA UNIT #: [id number] ROOM/BED: : 66 AGE: 55 SEX: M [...] medications. Patient states in October 2020 at [facility] he did receive in the pacemaker/AED. [...] emergency room: value of the HEART score. [facility] Heart J. 2008 Geronimo:16(6):191-6. PubMed PMID: [id number]; PubMed Central PMCID: [id number]. Jose Carlos SEQUEIRA, Jag QUINONES, et al. A prospective validation of the HEART score for chest pain patients at the emergency department. Int J Cardiol. 2013 May 3:168(3):2153 -8. Doi: 10.1016/j.ijcard.2013..255. Epub 2012Oct 07. PubMed PMID: 44465131. Review of Systems ROS Statements All systems [...] - 7.0 pH UNITS) 5.5 Ur Specific [place] (1.005 - 1.030 SG) 1.015 Urine Protein [...] X1ED STA 02/04 1723 DC 07/05 IV 02/04 1724 1737 Central Nervous System Agents Sig/Mria Start time Last Medication Dose Route Stop Time Status Admin Morphine Sulfate 2 MG X1ED STA 02/04 1723 DC 07/05 IV 07/05 1724 1738 Aspirin 324 MG X1ED STA / 1302 DC 07/ PO 07 1303 1315 Morphine Sulfate 4 MG X1ED [...] B/P 182/120 / 1300 B/P Mean 140 02/04 1300 O2 Delivery Room air 02/04 1300 Temp 37.0 02/04 1300 Pulse 84 / 1300 Resp 18 02/04 1300 Last Documented: Result Date Time Pulse Ox 96 02/04 191 B/P 155/102 / 191 B/P Mean 119 02/04 191 O2 [...] Saw Pt Alone I have reviewed the PA/SEWER PIPE LAYER HELPER's note and plan of care. I was available for consultation as needed at all times during the patient's visit in the emergency department. I agree with the clinical impression, plan and disposition. at 1019 at 1039 RPT #: [id number] END OF [id number] 12:14:00 [facility] ([facility]) Pulmonology Progress Note REPORT#:[id number] REPORT STATUS: Signed DATE:01/07/21 TIME:1214 PATIENT: BRYAN PARADA UNIT #: [id number] ROOM/BED: [place] [address] : 67 AGE: 55 SEX: M ATTEND: Yared Scott MD ADM AUTHOR: Rolando Napier AGACNP * ALL edits or amendments must be [...] non-tender, normal bowel sounds Genitourinary: no brown Neuro/HAT FINISHER: alert, oriented X 3 Lymphatics: no lymphadenopathy [...] on maintenance diuretics at 1233 RPT #: [id number] END OF REPORT [id number] 12:14:00 [facility] ([facility]) Pulmonology Progress Note REPORT#:[id number] REPORT STATUS: Signed DATE:01/07/21 TIME:1214 PATIENT: BRYAN PARADA UNIT #: [id number] ROOM/BED: [place] [address] : 67 AGE: 55 SEX: M ATTEND: [...] Resp 16 01/07 115 FiO2 21 01/07 08 O2 Delivery Room air 01/07 08 O2 [...] non-tender, normal bowel sounds Genitourinary: no brown Neuro/HAT FINISHER: alert, 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 Impression By: [email or web address] - Vernon Garibay M.D. Diagnosis, Assessment Plan [...] A P: Seen ,examined , agree with SEWER PIPE LAYER HELPER at 1233 RPT #: [id number] END OF REPORT [id number] 12:14:00 [facility] Pulmonology Progress Note REPORT#:[id number] REPORT STATUS: Signed DATE:01/07/21 TIME:1214 PATIENT: BRYAN PARADA UNIT #: [id number] ROOM/BED: [place] [address] : 67 AGE: 55 SEX: M ATTEND: Yaerd Scott MD ADM AUTHOR: Rolando Napier * [...] non-tender, normal bowel sounds Genitourinary: no brown Neuro/HAT FINISHER: alert, oriented X 3 Lymphatics: no lymphadenopathy [...] A P: Seen ,examined , agree with SEWER PIPE LAYER HELPER at 1233 at 2334 RPT #: [id number] END OF REPORT [id number] 16:51:00 [facility] Neurology Progress Note REPORT#:[id number] REPORT STATUS: Signed DATE:01/06/21 TIME:165 PATIENT: BRYAN PARADA UNIT #: [id number] ROOM/BED: [place] [address] : 67 AGE: 55 SEX: M ATTEND: [...] changes. Supportive care. at 0633 RPT #: [id number] END OF REPORT [id number] 09:13:00 [facility] ([facility]) Hospitalist Progress Note REPORT#:[id number] REPORT STATUS: Signed DATE:01/06/21 TIME:912 PATIENT: BRYAN PARADA UNIT #: [id number] ROOM/BED: [place] [address] : 67 AGE: 55 SEX: M ATTEND: [...] 128 95 01/06 0624 88 14 96 06/06 0600 80 [...] of motion, no edema Musculoskeletal: decreased ROM Neuro/HAT FINISHER: left hemiparesis, alert, oriented X 3 Skin: dry, no rash Lymphatics: no lymphadenopathy Psychiatry: anxious Results Findings/Data: Laboratory Tests 01/06 01/05 01/05 01/05 0733 2022 1518 1200 Chemistry Sodium (134 - 147 [...] (0.8 - 1.2 INR Unit) 1.08 PTT ([place]) (26 - 35 SECONDS) 33.0 PT Patient/Control [...] % (Auto) (20.5 - 51.1 %) 32.3 [place] % (Auto) (1.7 - 9.3 %) 12.0 H Eos % (Auto) (0.0 - 6.0 %) 2.7 Baso % (Auto) (0.0 - 2.0 %) 0.2 Neut # (Auto) (1.8 - 7.6 K/mm3) 2.8 Lymph # (Auto) (0.6 - 3.0 K/mm3) 1.7 [place] # (Auto) (0.2 - 1.5 K/mm3) 0.6 [...] health in AM at 1151 RPT #: [id number] END OF REPORT [id number] 11:47:00 [facility]) Hospitalist Progress Note REPORT#:[id number] REPORT STATUS: Signed DATE:01/05/21 TIME:1147 PATIENT: BRYAN PARADA UNIT #: [id number] ROOM/BED: [place] [address] : 67 AGE: 55 SEX: M ATTEND: Yared Scott MD ADM AUTHOR: Yared Scott MD * ALL edits or amendments must be made on the electronic/computer document * Subjective Chief Complaint: Feeling better No acute events Objective General VS/I O: Vital Signs: Date Time Temp Pulse Resp B/P B/P Pulse O2 O2 Flow FiO2 Mean Ox Delivery Rate / 1124 103 24 177/108 136 98 06/05 [...] 9 74 22 176/110 138 96 06/04 2257 74 22 177/110 138 97 06/04 2256 [...] of motion, no edema Musculoskeletal: decreased ROM Neuro/HAT FINISHER: left hemiparesis, alert, oriented X 3 Skin: [...] CT was ordered at 1151 RPT #: [id number] END OF REPORT [id number] 07:29:00 [facility] ([facility]) Neurology Progress Note REPORT#:[id number] REPORT STATUS: Signed DATE:01/05/21 TIME:728 PATIENT: BRYAN PARADA UNIT #: [id number] ROOM/BED: [place] [address] : 67 AGE: 55 SEX: M ATTEND: [...] anticoagulation before discharge at 0732 RPT #: [id number] END OF REPORT [id number] 10:33:700934-6462 [facility] [address] [place] [address] PATIENT NAME: BRYAN PARADA ADMIT DATE: 01/03/21 ACCOUNT NO: [id number] ROOM NO: ICU03 AGE: 55 REPORT TYPE: eECHOCARDIOGRAM REPORT SEX: M ADMITTING PHYSICIAN: Yared Scott MD ATTENDING PHYSICIAN: Yared Scott MD *[facility]* [address] [place], [place] [address] Transthoracic Echocardiogram Patient: Bryan Parada Study Date: 01/03/2021 BP: 160 / 98 Location: [facility] URN: [id number] : 1965 Age: 55 Height: 74 in / 188 cm Gender: M Weight: 323.4 lb / 147 kg BMI/BSA: 41.6 kg/m 2 / 2.83 m 2 *Ordering Physician: Yared Monteiro *Interpreting Physician: * Anaya Nieto *Pump Installation And Servicer: * Arti Woodard Indications: CVA. Study data: [...] cm 2 --------- Pulmonic valve Value Ref CO peak v 1.39 m/sec --------- CO peak grad 8 mm Hg --------- Tricuspid [...] PARADA 10:33:00 THIS REPORT HAS BEEN APPENDED [address] [address] PATIENT NAME: BRYAN PARADA ADMIT DATE: 01/03/21 ACCOUNT NO: [id number] ROOM NO: ICU AGE: 55 REPORT TYPE: eECHOCARDIOGRAM REPORT SEX: M ADMITTING PHYSICIAN: Yared Scott MD ATTENDING PHYSICIAN: Yared Scott MD *[facility]* [address] [place] [address] Transthoracic Echocardiogram Patient: Byran Parada Study Date: 01/03/2021 BP: 160 / 98 Location: [facility] URN: [id number] : 1965 Age: 55 Height: 74 in / 188 cm Gender: M Weight: 323.4 lb / 147 kg BMI/BSA: 41.6 kg/m 2 / 2.83 m 2 *Ordering Physician: * Yared Scott *Interpreting Physician: * Anaya Nieto *Pump Installation And Servicer: * Woodard, Arti Indications: CVA. Study data: Transthoracic echocardiogram. Procedure: [...] Features are consistent with PATIENT NAME: BRYAN PAARDA a pseudonormal left ventricular filling pattern, with [...] cm 2 --------- Pulmonic valve Value Ref CO peak v 1.39 m/sec --------- CO peak grad 8 mm Hg --------- Tricuspid [...] 1033 SECTION 2 ADDENDUM 1: 01/04/21 1035 [facility] *[facility]* [address] [place], [place] [address] Transthoracic Echocardiogram (Report amended [id number]:35:17) Patient: Bryan Parada Study Date: 01/03/2021 BP: 160 / 98 Location: [facility] URN: [id number] : 1965 Age: 55 Height: 74 in / 188 cm Gender: M Weight: 323.4 lb / 147 kg BMI/BSA: 41.6 kg/m 2 / 2.83 m 2 *Ordering Physician: * Yared Scott PATIENT NAME: BRYAN PARADA *Interpreting Physician: * Anaya Nieto *Pump Installation And Servicer: * Arti Woodard Indications: CVA. Study data: [...] cm 2 --------- Pulmonic valve Value Ref CO peak v 1.39 m/sec --------- CO peak grad 8 mm Hg --------- Tricuspid [...] at 1035 PATIENT NAME: BRYAN PARADA 10:03:00 [facility] Hospitalist Progress Note REPORT#:[id number] REPORT STATUS: Signed DATE:01/04/21 TIME:1003 PATIENT: BRYAN PARADA UNIT #: [id number] ROOM/BED: ICU03-1 : 66 AGE: 55 SEX: [...] 94 06/03 2022 95 Room air 21 /2014 71 17 129/80 100 95 06/03 1999 [...] of motion, no edema Musculoskeletal: decreased ROM Neuro/HAT FINISHER: left hemiparesis, alert, oriented X 3 Skin: [...] (0.8 - 1.2 INR Unit) 0.98 PTT ([place]) (26 - 35 SECONDS) 30.0 PT Patient/Control [...] % (Auto) (20.5 - 51.1 %) 41.3 [place] % (Auto) (1.7 - 9.3 %) 11.3 H Eos % (Auto) (0.0 - 6.0 %) 2.5 Baso % (Auto) (0.0 - 2.0 %) 0.2 Neut # (Auto) (1.8 - 7.6 K/mm3) 2.2 Lymph # (Auto) (0.6 - 3.0 K/mm3) 2.0 [place] # (Auto) (0.2 - 1.5 K/mm3) 0.6 [...] Procedure Date/time Status EVAL PT MOD COMPLEX [id number] 01/04 103 Active EXERCISE 15 MINUTES 01/04 103 Active PT: POCC - PT STAFF ONLY 01/04 103 Active Telemetry Monitoring 01/04 0844 Active LEVEL OF CARE 01/04 08 Active EVAL ORAL/PHARYNGL SWALLOW 01/03 1943 Active [...] than 30 minutes at 1144 RPT #: [id number] END OF REPORT [id number] 09:26:00 [facility] ([facility]) Pulmonology Progress Note REPORT#:[id number] REPORT STATUS: Signed DATE:01/04/21 TIME:925 PATIENT: BRYAN PARADA UNIT #: [id number] ROOM/BED: [place] [address] : 66 AGE: 55 SEX: M ATTEND: [...] Ox 99 01/04 700 B/P 117/80 01/04 07 B/P Mean 94 [...] non-tender, normal bowel sounds Genitourinary: no brown Neuro/HAT FINISHER: alert, oriented X 3 Lymphatics: no lymphadenopathy Results Findings/Data: Laboratory Tests 01/04/21 0429: [Embedded Image Not Available] 01/03/21 1417: [Embedded Image Not Available] Laboratory Tests 01/04 01/04 01/03 01/03 0731 0429 4325 1745 Chemistry Sodium (134 - 147 mmol/L) [...] (0 - 100 PG/ML) 753 H 01/03 1417 Chemistry Sodium (134 - 147 [...] % (Auto) (20.5 - 51.1 %) 41.3 [place] % (Auto) (1.7 - 9.3 %) 11.3 H Eos % (Auto) (0.0 - 6.0 %) 2.5 Baso % (Auto) (0.0 - 2.0 %) 0.2 Neut # (Auto) (1.8 - 7.6 K/mm3) 2.2 Lymph # (Auto) (0.6 - 3.0 K/mm3) 2.0 [place] # (Auto) (0.2 - 1.5 K/mm3) 0.6 [...] D/G to IMU at 0936 RPT #: [id number] END OF REPORT [id number] 19:44:00 [facility]) Neurology Consultation Note REPORT#:[id number] REPORT STATUS: Signed DATE:01/03/21 TIME:1943 PATIENT: SCALES,BRYAN UNIT #: [id number] ROOM/BED: MisbahICU03-1 : 66 AGE: 55 SEX: [...] the acute stage at 1956 RPT #: [id number] END OF REPORT [id number] 16:41:00 [facility] ([facility]) Cardiology Consultation REPORT#:[id number] REPORT STATUS: Signed DATE:01/03/21 TIME:1641 PATIENT: SCALES,BRYAN UNIT #: [id number] ROOM/BED: [place] [address] : 66 AGE: 55 SEX: M ATTEND: [...] present Respiratory: clear to auscultation Abdomen: soft Neuro/HAT FINISHER: left hemiparesis Diagnosis, Assessment Plan Problem List/A [...] management and Rehab at 1052 RPT #: [id number] END OF REPORT [id number] 16:09:00 [facility] ([facility]) Pulmonary Consultation Note REPORT#:[id number] REPORT STATUS: Signed DATE:01/03/21 TIME:1609 PATIENT: BRYAN PARADA UNIT #: [id number] [address]ED: [address] : [address] AGE: 55 SEX: M [...] obesity, and recent strokes who presents to [facility] with acute onset of left-sided weakness today. Of note patient was seen last month at [facility] for TIA without any findings of acute [...] non-tender, normal bowel sounds Genitourinary: no brown Neuro/HAT FINISHER: alert, oriented X 3 Results Findings/Data: Laboratory [...] (0.8 - 1.2 INR Unit) 0.98 PTT ([place]) (26 - 35 SECONDS) 30.0 PT Patient/Control [...] neurology, follow-up recommendations at 1624 RPT #: [id number] END OF REPORT [id number] 16:09:00 [facility] ([facility]) Pulmonary Consultation Note REPORT#:[id number] REPORT STATUS: Signed DATE:01/03/21 TIME:1609 PATIENT: BRYAN PARADA UNIT #: [id number] [address]BED: [address] : [address] AGE: 55 SEX: M [...] obesity, and recent strokes who presents to [facility] with acute onset of left-sided weakness today. Of note patient was seen last month at [facility] for TIA without any findings of acute [...] non-tender, normal bowel sounds Genitourinary: no brown Neuro/HAT FINISHER: alert, oriented X 3 Results Findings/Data: Laboratory [...] Normal head and neck CTA. Impression By: [email or web address] - Dagoberto Mayer M.D. CAT SCAN - CT ANGIO NECK 01/03 1426 Report Impression - Status: SIGNED Entered: 01/03/2021 1457 IMPRESSION: Normal head and neck CTA. Impression By: [email or web address] Ye Mayer M.D. Diagnosis, Assessment Plan Free Text [...] Napier PT/OT/speech/CM consulted at 1626 RPT #: [id number] END OF REPORT [id number] 16:09:00 [facility] ([facility]) Pulmonary Consultation Note REPORT#:[id number] REPORT STATUS: Signed DATE:01/03/21 TIME:160 PATIENT: BRYAN PRAADA UNIT #: [id number] ROOM/BED: [place] [address] : 66 AGE: 55 SEX: M ATTEND: [...] obesity, and recent strokes who presents to [facility] with acute onset of left-sided weakness today. Of note patient was seen last month at [facility] for TIA without any findings of acute [...] soft, non-tender, normal bowel sounds Genitourinary: no brwon Neuro/HAT FINISHER: alert, oriented X 3 Results Findings/Data: Laboratory [...] (0.8 - 1.2 INR Unit) 0.98 PTT ([place]) (26 - 35 SECONDS) 30.0 PT Patient/Control Mix (9.3 - 12.9 SECONDS) 11.0 Laboratory Tests 01/03 141 Hematology WBC (3.5 - 11.0 K/mm3) 5.1 [...] Napier PT/OT/speech/CM consulted at 1626 RPT #: [id number] END OF REPORT [id number] 15:13:428920-8041 [facility] [address] [place] [address] PATIENT NAME: BRYAN PARADA ADMIT DATE: 01/03/21 ACCOUNT NO: [id number] ROOM NO: [facility] AGE: 55 REPORT TYPE: eELECTROCARDIOGRAM SEX: M ADMITTING PHYSICIAN: Yared Scott MD ATTENDING PHYSICIAN: Yared Scott MD Order: [id number] Test Reason : (Not Selected) Test Date/Time [...] has replaced Sinus rhythm Confirmed by MD Nieto Amir ([id number]) on 02/04/2021 5:17:21 PM Referred By: Self Referred Confirmed by:Anaya Nieto MD at 1717 PATIENT NAME: BRYAN PARADA 15:06:00 [facility] ([facility]) [place] Hospitalist History Physical REPORT#:[id number] REPORT STATUS: Signed DATE:01/03/21 TIME:1506 PATIENT: BRYAN PARADA UNIT #: [id number] ROOM/BED: ICU03-1 : 66 AGE: 55 SEX: [...] Result Date Time Pulse Ox 95 01/03 184 B/P 136/91 01/03 1845 B/P Mean 109 [...] of motion, no edema Musculoskeletal: decreased ROM Neuro/HAT FINISHER: left hemiparesis, alert, oriented X 3 Skin: [...] (0.8 - 1.2 INR Unit) 0.98 PTT ([place]) (26 - 35 SECONDS) 30.0 PT Patient/Control [...] than 30 minutes at 1148 RPT #: [id number] END OF REPORT [id number] 14:09:00 [facility] ([facility]) EMERGENCY PROVIDER REPORT REPORT#:[id number] REPORT STATUS: Signed DATE:01/03/21 TIME:140 PATIENT: BRYAN PARADA UNIT #: [id number] ROOM/BED: [place] [address] : 66 AGE: 55 SEX: M PCP [...] (0.8 - 1.2 INR Unit) 0.98 PTT ([place]) (26 - 35 SECONDS) 30.0 PT Patient/Control [...] Consultation 1 Referral/Consult Name Álvaro Becerra MD Barrel Drum Cutter Called Lead Care Manager Requested Call Time 1501 Requested Call Date 01/03/21 Call Returned Call returned Call Returned Time 1501 Call Returned Date 01/03/21 Barrel Drum Cutter Will see patient, Agrees with eval, Agrees with plan Consultation 2 Referral/Consult Name ; Jennifer Hackett MD Barrel Drum Cutter Called Neurology Requested Call Time 1502 Requested Call Date 01/03/21 Call Returned Call returned Call Returned Time 1502 Call Returned Date 01/03/21 Barrel Drum Cutter Will see patient, Agrees with eval, Agrees with plan Patient Discharge Departure Vital Signs/Condition Vital Signs First Documented: Result Date Time Pulse Ox 97 06/ 1405 B/P 160/98 06/03 1405 B/P Mean 118 06/ 1405 O2 Delivery Room air 06/ 1405 Temp 36.7 06/ 1405 Pulse 80 06/ 1405 Resp 14 / 1405 Last Documented: Result Date Time Pulse Ox 97 06/ 1405 B/P 160/98 06/ 1405 B/P Mean 118 06/03 1405 O2 Delivery Room air 06/ 1405 Temp 36.7 06/03 1405 Pulse 80 06/03 1405 Resp 14 01/03 1405 All vital [...] billable procedures excluded from time. at 1529 [facility] #: [id number] END OF [id number] 13:03:00 [facility] ([facility]) Hospitalist Progress Note REPORT#:[id number] REPORT STATUS: Signed DATE:12/04/20 TIME: 1303 PATIENT: BRYAN PARADA UNIT #: [id number] ROOM/BED: [address] : 66 AGE: 55 SEX: M [...] LDL 138 c/w aspirin, statin Diabetes mellitus DmA8c-3.9 c/w Sliding scale insulin hypertension stable c.w coreg and amlodipine GI and DVT prophylaxis-Lovenox Discussed with RN at 2343 RPT #:[id number] END OF [id number] 11:37:00 [facility] [place] [facility] Post Proc - Brief REPORT#:[id number] REPORT STATUS: Signed DATE:12/04/20 TIME: 1137 PATIENT: BRYAN PARADA UNIT #: [id number] ROOM/BED: [address] : 66 AGE: 54 SEX: M ATTEND: Benoit Tello MD ADM AUTHOR: Vic Louise MD * ALL edits or amendments must be made on the electronic/computer document * Pre-Procedure Presentation General 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 Detailed informed consent was obtained after discussion of the risks, benefits, and alternatives to the procedure. The patient was placed supine on the Finance Business Manager table and prepped and draped in [...] the entire procedure. I was present for ihve-co-plff monitoring from the initiation of sedation through [...] radial artery was accessed, and a 6 Trinidadian slender hemostasis sheath was advanced over the guide wire into the vessel with good back bleed and flexibility. The patient was given a radial cocktail consisting of verapamil 2 mg and nitroglycerin 200 mcg intra-arterially through the sheath. Heparin 3000 units was given IV once the catheter and wire had been successfully negotiated into the ascending aorta. We then advanced a 5 Trinidadian TIG 4 diagnostic coronary catheter through the [...] Films were reviewed in real-time in the Finance Business Manager. We then advanced the table wire [...] recovered for short period time on the Finance Business Manager table before being moved back to [...] with me even though he lives in [place], [place]. We will utilize telehealth for follow-up [...] modification Specimens removed/altered: none at 1156 RPT #:[id number] END OF [id number] 22:52:00 [facility] ([facility]) Hospitalist Progress Note REPORT#:[id number] REPORT STATUS: Signed DATE:12/03/20 TIME: 2251 PATIENT: BRYAN PARADA UNIT #: [id number] ROOM/BED: [address] : 66 AGE: 54 SEX: M [...] 97.6 69 18 144/92 97 Room air 05/04 1140 73 18 142/83 99 Room air 05/ 1135 73 18 139/91 99 Room air 05/ 1133 97.6 73 18 151/94 99 Room air 05/ 0822 97.7 72 18 145/99 114.3 98 Room air 05/ 0553 70 149/97 114.7 98 Nasal 1 cannula / 0429 71 159/103 121.6 12/04 0345 69 164/119 133.9 12/04 0338 98.1 65 16 98 Room air 05/03 2313 97.9 65 16 138/83 101.4 96 Room air 05/ 1949 98.4 74 16 136/85 102.2 97 Room air 05/03 1600 98.2 74 16 154/105 121.7 96 Room air 24 hour I O ending at 0700: 12/04 0700 /03 1900 Intake Total 300 300 [...] LDL 138 c/w aspirin, statin Diabetes mellitus PwP2o-3.9 c/w Sliding scale insulin hypertension stable c.w coreg and amlodipine GI and DVT prophylaxis-Lovenox Discussed with RN at 1303 RPT #:[id number] END OF [id number] 11:16:00 [facility] Cardiology Progress Note REPORT#:[id number] REPORT STATUS: Signed DATE:12/03/20 TIME: 1116 PATIENT: BRYAN PARADA UNIT #: [id number] ROOM/BED: [address] : 66 AGE: 54 SEX: M [...] Musculoskeletal: full range of motion, normal inspection Neuro/HAT FINISHER: alert, oriented X 3 Skin: dry, intact, normal temperature Psychiatry: normal affect, normal judgment/insight, normal mood Results Findings/Data: Laboratory Tests 12/03 12/03 12/03 12/02 0723 5214 4723 3444 Chemistry Sodium (133 - 144 mmol/L) 139.0 [...] via right radial arterial access with 6 Trinidadian sheath and TR band for hemostasis. Minimal [...] any questions or concerns. at 1204 RPT #:[id number] END OF [id number] 05:46:485422-[address] [address] PATIENT NAME: BRYAN PARADA ADMIT DATE: 11/30/20 ACCOUNT NO: [id number] ROOM NO: [facility] AGE: 54 REPORT TYPE: ELECTROCARDIOGRAM SEX: M ADMITTING PHYSICIAN:Benoit Tello MD ATTENDING PHYSICIAN:Benoit Tello MD Order: [id number] Test Reason : CHEST PAIN Test Date/Time [...] at 0643 PATIENT NAME: BRYAN PARADA 14:04:00 [facility] ([facility]) Hospitalist Progress Note REPORT#:[id number] REPORT STATUS: Signed DATE:12/02/20 TIME: 1404 PATIENT: BRYAN PARADA UNIT #: [id number] ROOM/BED: [address] : 66 AGE: 54 SEX: M [...] 72 18 145/99 114.3 98 Room air 05/ 0553 70 149/97 114.7 98 Nasal 1 [...] statin Follow with Teleneurology recommendation Diabetes mellitus HdG0p-3.9 c/w Sliding scale insulin hypertension stable c.w coreg and amlodipine GI and DVT prophylaxis-Lovenox Discussed with RN at 1259 RPT #:[id number] END OF [id number] 13:20:00 [facility] ([facility]) Cardiology Progress Note REPORT#:[id number] REPORT STATUS: Signed DATE:12/02/20 TIME: 1320 PATIENT: BRYAN PARADA UNIT #: [id number] [facility] AGE: 54 SEX: M [...] 69 18 127/84 98.3 96 Room air 12/017 97.7 73 18 135/90 104.9 97 Room [...] 2+ pedal pulse Musculoskeletal: CVA tenderness (HOLLIS) Neuro/HAT FINISHER: alert, oriented X 3 Psychiatry: normal affect, [...] Echo as above NPO after midnight for [facility] in AM. Plan of care discussed with patient, nurse, and Dr. Chery. at 1332 RPT #:[id number] END OF [id number] 13:20:00 [facility] Cardiology Progress Note REPORT#:[id number] REPORT STATUS: Signed DATE:12/02/20 TIME: 1320 PATIENT: BRYAN PARADA UNIT #: [id number] ROOM/BED: [address] : 66 AGE: 54 SEX: M ATTEND: Benoit Tello MD ADM AUTHOR: Elyse Arguello SEWER PIPE LAYER HELPER * ALL edits or amendments must be [...] 2+ pedal pulse Musculoskeletal: CVA tenderness (HOLLIS) Neuro/HAT FINISHER: alert, oriented X 3 Psychiatry: normal affect, [...] Echo as above NPO after midnight for [facility] in AM. Plan of care discussed with patient, nurse, and Dr. Chery. Prosper Chery 12/05/202047: Attestations Physician Attestation Agree w/findings plan: CARDIOLOGY ATTENDING ADDENDUM I have discussed the plan of care with the SEWER PIPE LAYER HELPER as reflected on the chart. I verified and agree with the SEWER PIPE LAYER HELPER's findings and plan as documented in the progress note filed in patients chart. Exceptions and clarifications have been noted above in this document. The plan was discussed with the SEWER PIPE LAYER HELPER/PA, nursing staff and resident. Prosper Chery MD., FACP., FACC. Interventional Cardiology at 1332 RPT #:[id number] END OF [id number] 13:20:00 [facility] ([facility]) Cardiology Progress Note REPORT#:[id number] REPORT STATUS: Signed DATE:12/02/20 TIME: 1320 PATIENT: BRYAN PARADA UNIT #: [id number] ROOM/BED: [address] : 66 AGE: 54 SEX: M ATTEND: Benoit Tello MD ADM AUTHOR: Elyse Arguello SEWER PIPE LAYER HELPER * ALL edits or amendments must be [...] 2+ pedal pulse Musculoskeletal: CVA tenderness (HOLLIS) Neuro/HAT FINISHER: alert, oriented X 3 Psychiatry: normal affect, [...] Echo as above NPO after midnight for [facility] in AM. Plan of care discussed with patient, nurse, and Dr. Chery. Prosper Chery 12/05/202047: Attestations Physician Attestation Agree w/findings plan: CARDIOLOGY ATTENDING ADDENDUM I have discussed the plan of care with the SEWER PIPE LAYER HELPER as reflected on the chart. I verified and agree with the SEWER PIPE LAYER HELPER's findings and plan as documented in the progress note filed in patients chart. Exceptions and clarifications have been noted above in this document. The plan was discussed with the SEWER PIPE LAYER HELPER/PA, nursing staff and resident. Prosper Chery MD., FACP., FACC. Interventional Cardiology at 1332 at 2052 RPT #:[id number] END OF [id number] 10:40:816716-[address] [address] PATIENT NAME: BRYAN PARADA ADMIT DATE: 11/30/20 ACCOUNT NO: [id number] ROOM NO: [facility] AGE: 54 REPORT TYPE: eCAROTID ULTRASOUND SEX: M ADMITTING PHYSICIAN:Benoit Tello MD ATTENDING PHYSICIAN:Benoit Tello MD Name: KATHE PARADAtudy Date: 12/02/2020 10:40 AMPatient Location: [address] URN: [id number] Gender: Male : 1965 Gender: Male Age: [...] at 1135 PATIENT NAME: BRYAN PARADA 15:18:00 [facility] Hospitalist Progress Note REPORT#:[id number] REPORT STATUS: Signed DATE:12/01/20 TIME: 1518 PATIENT: BRYAN PARADA UNIT #: [id number] ROOM/BED: [address] : 66 AGE: 54 SEX: M [...] Present on admission Chronic, systolic Diabetes mellitus RkC4q-6.9 c/w Sliding scale insulin hypertension stable c.w coreg and amlodipine GI and DVT prophylaxis-SCDs; start on Lovenox Discussed with RN at 1404 RPT #:[id number] END OF [id number] 10:02:00 [facility] ([facility]) Clinical Note REPORT#:[id number] REPORT STATUS: Signed DATE:12/01/20 TIME: 1002 PATIENT: BRYAN PARADA UNIT #: [id number] ROOM/BED: [address] : 66 AGE: 54 SEX: M ATTEND: Benoit Tello MD ADM AUTHOR: Cm Grullon MD * ALL edits or amendments must be made on the electronic/computer document * Clinical Note Note: Neurology Spoke w PCP OT PT to see prior to DC = safety eval. at 1003 RPT #:[id number] END OF [id number] 09:26:00 [facility] ([facility]) Telemed Neuro Consult Note REPORT#:[id number] REPORT STATUS: Signed DATE:12/01/20 TIME: 925 PATIENT: BRYAN PARADA UNIT #: [id number] ROOM/BED: [address] : 66 AGE: 54 SEX: M [...] in left hemiparesis 3-4 months ago at [facility]. Pt with risks of HTN, obesity, DM. [...] set complete DVT prophylaxis at 0935 RPT #:[id number] END OF [id number] 18:09:00 [facility] Hospitalist Progress Note REPORT#:[id number] REPORT STATUS: Signed DATE:11/30/20 TIME: 1808 PATIENT: BRYAN PARADA UNIT #: [id number] ROOM/BED: [address] : [birth year] AGE: 54 SEX: M ATTEND: Benoit Tello [...] Present on admission Chronic, systolic Diabetes mellitus NaA4m-5.9 c/w Sliding scale insulin hypertension stable c.w coreg and amlodipine GI and DVT prophylaxis-SCDs; will avoid chemical anticoagulation to prevent hemorrhagic transformation Discussed with RN at 1518 RPT #:[id number] END OF [id number] 17:16:00 [facility] ([facility]) Cardiology Consultation REPORT#:[id number] REPORT STATUS: Signed DATE:11/30/20 TIME: 1715 PATIENT: BRYAN PARADA UNIT #: [id number] ROOM/BED: [address] : 66 AGE: 54 SEX: M ATTEND: Benoit Tello MD ADM AUTHOR: Alexa Montelongo APRN,HAY BUCKLER,PARACHUTE/COMBATANT DIVER OFFICER * ALL edits or amendments must be made on the electronic/computer document * Alexa Montelongo 11/30/20 171: History of Present Illness HPI Requesting Clinician: Elisha Reason for consult: Chest Pain Free Text HPI Notes Free Text HPI Notes: Mr. Parada is an AAM w/ PMH CAD (Hx PCI w/ stents), HTN, HFrEF (Biotronic AICD /PPM 08/02/2020), who presented to an ED in [place], [place] w/ chest pain, H/A, acute onset left sided weakness; was later transfered to [facility] for further evaluation. Pt describes left parasternal [...] therapy in oates today. Pt lives in [place], [place] and sees recycling crew supervisor Dr. Ulloa from [facility]. History - Adult longitudinal Smoking status: Smoking [...] 2+ pedal pulse Musculoskeletal: HOLLIS x 4 Neuro/HAT FINISHER: alert, oriented X 3, normal speech Skin: [...] % (Auto) (14.1 - 45.4 %) 40.3 [place] % (Auto) (2.5 - 11.7 %) 10.0 Eos % (Auto) (0.0 - 6.2 %) 1.6 Baso % (Auto) (0.0 - 2.6 %) 0.2 Gran # (2.0 - 13.7 k/mm3) 2.39 Lymph # (Auto) (0.6 - 3.8 K/mm3) 2.02 [place] # (Auto) (0.11 - 0.59 K/mm3) 0.50 [...] with extensive cardiac history, has f/u at [facility] plan for device check, echo, sttress test. at 0244 RPT #:[id number] END OF [id number] 17:16:00 [facility] ([facility]) Cardiology Consultation REPORT#:[id number] REPORT STATUS: Signed DATE:11/30/20 TIME: 1715 PATIENT: BRYAN PARADA UNIT #: [id number] ROOM/BED: [facility] : 66 AGE: 54 SEX: M ATTEND: Benoit Tello MD ADM AUTHOR: Reginald,Alexa MANAGER [employer]S,HAY BUCKLER,PARACHUTE/COMBATANT DIVER OFFICER * ALL edits or amendments must be made on the electronic/computer document * Alexa Montelongo 11/30/20 1716: History of Present Illness HPI Requesting Clinician: Elisha Reason for consult: Chest Pain Free Text HPI Notes Free Text HPI Notes: Mr. Parada is an AAM w/ PMH CAD (Hx PCI w/ stents), HTN, HFrEF (Biotronic AICD /PPM 08/02/2020), who presented to an ED in [place], [place] w/ chest pain, H/A, acute onset left sided weakness; was later transfered to [facility] [place] for further evaluation. [...] therapy in oates today. Pt lives in [place], [place] and sees recycling crew supervisor Dr. Ulloa from [facility]. History - Adult longitudinal Smoking status: Smoking [...] 2+ pedal pulse Musculoskeletal: HOLLIS x 4 Neuro/HAT FINISHER: alert, oriented X 3, normal speech Skin: dry, normal temperature Psychiatry: normal affect, normal judgment/insight, normal mood, no hallucinations Results Findings/Data: Laboratory Tests 11/30 11/30 11/30 11/30 1641 1218 0732 0354 Chemistry POC Glucose (70 - 119 MG/DL) 103 121 H 96 Hemoglobin A1c (4.5 - 5.6 % IS-A1C) 5.9 H 11/30 11/29 11/29 11/29 0354 5624 1 0788 Chemistry Sodium (133 - 144 mmol/L) 137.0 [...] % (Auto) (14.1 - 45.4 %) 40.3 [place] % (Auto) (2.5 - 11.7 %) 10.0 Eos % (Auto) (0.0 - 6.2 %) 1.6 Baso % (Auto) (0.0 - 2.6 %) 0.2 Gran # (2.0 - 13.7 k/mm3) 2.39 Lymph # (Auto) (0.6 - 3.8 K/mm3) 2.02 [place] # (Auto) (0.11 - 0.59 K/mm3) 0.50 Eos # (Auto) (0.0 - 0.4 K/mm3) 0.08 Baso # (Auto) (0.0 - 0.1 K/mm3) 0.01 Immature Gran % (0.0 - 2.0 %) 0.2 Nucleated RBC % (0.0 - 1.0 /100WBC%) 0.0 Nucleated RBCs # (0.00 - 0.05 K/mm3) 0.00 Laboratory Tests 11/29 1750 Serology SARS-CoV-2 Ag (Rapid) (Neg) Negative Laboratory Tests 11/30 5207 2586 Chemistry Magnesium (1.6 - 2.6 MG/DL) 2.2 [...] with extensive cardiac history, has f/u at [facility] plan for device check, echo, sttress test. at 0244 at 1841 RPT #:[id number] END OF [id number] 17:16:00 [facility] ([facility]) Cardiology Consultation REPORT#:[id number] REPORT STATUS: Signed DATE:11/30/20 TIME: 171 PATIENT: BRYAN PARADA UNIT #: [id number] ROOM/BED: [address] : [address] AGE: 54 SEX: M [...] 08/02/2020), who presented to an ED in [place], [place] w/ chest pain, H/A, acute onset left sided weakness; was later transfered to [facility] for further evaluation. Pt describes left parasternal [...] dizziness when walking w/ physical therapy in [place] today. Pt lives in [place], [place] and sees recycling crew supervisor Dr. Ulloa from [facility]. History - Adult longitudinal Smoking status: Smoking [...] 2+ pedal pulse Musculoskeletal: HOLLIS x 4 Neuro/HAT FINISHER: alert, oriented X 3, normal speech Skin: [...] % (Auto) (14.1 - 45.4 %) 40.3 [place] % (Auto) (2.5 - 11.7 %) 10.0 Eos % (Auto) (0.0 - 6.2 %) 1.6 Baso % (Auto) (0.0 - 2.6 %) 0.2 Gran # (2.0 - 13.7 k/mm3) 2.39 Lymph # (Auto) (0.6 - 3.8 K/mm3) 2.02 [place] # (Auto) (0.11 - 0.59 K/mm3) 0.50 [...] being a part of MR. Parada' care. Electronically Signed by Alexa Montelongo APRN,HAY BUCKLER,PARACHUTE/COMBATANT DIVER OFFICER on 12/01/20 at 0244 RPT #:[id number] END OF [id number] 08:24:[id number] [address] PATIENT NAME: BRYAN PARADA ADMIT DATE: 11/30/20 ACCOUNT NO: [id number] ROOM NO: [facility] AGE: 54 REPORT TYPE: eECHOCARDIOGRAM REPORT SEX: M ADMITTING PHYSICIAN:Benoit Tello MD ATTENDING PHYSICIAN:Benoit Tello MD Name: KATHE PARADAtudy Date: 11/30/2020 08:24 AMPatient Location: [place] [address] [address] URN: [id number] BP: 145/92 mmHg : 75 in Gender: [...] Chuckie Olmos Performed By: Lambert Hull at 1753 PATIENT NAME: BRYAN PARADA 19:27:00 [facility] Hospitalist History Physical REPORT#:[id number] REPORT STATUS: Signed DATE:11/29/20 TIME: 1926 PATIENT: BRYAN PARADA UNIT #: [id number] ROOM/BED: [address] : [address] AGE: 54 SEX: M ATTEND: Benoit Tello MD ADM AUTHOR: Benoit Tello MD * ALL edits or amendments must be made on the electronic/computer document * History of Present Illness HPI Chief complaint: Transferred from [facility] in [place] for evaluation of CVA HPI: Patient is [...] 137/90 11/29 2358 B/P Mean 105.5 11/29 235 O2 Delivery Room air 11/29 2358 Temp [...] transformation Discussed with RN at 1809 RPT #:[id number] END OF [id number] 15:42:00 [facility] ([facility]) EMERGENCY PROVIDER REPORT REPORT#:[id number] REPORT STATUS: Signed DATE:11/29/20 TIME: 1542 PATIENT: BRYAN PARADA UNIT #: [id number] ROOM/BED: AGE: 54 SEX: M PCP PHYS: [...] 99 On: Room air Interpretation Interpreted by va Time 1545 Re-Evaluation MDM Free Text MDM [...] X1ED STA 11/29 1718 DC 11/29 IV 11/290 1733 Diagnostic Agents Sig/Mira Start time Last Medication Dose Route Stop Time Status Admin Iopamidol 100 ML .STK-MED ONE 11/29 1717 DC 11/29 IV 04/29 1719 1718 Patient Discharge Departure Vital Signs/Condition [...] over this patient's care. at 1738 RPT #:[id number] END OF [id number] 09:43:00 [facility] ([facility]) EMERGENCY PROVIDER REPORT REPORT#:[id number] REPORT STATUS: Signed DATE:11/29/20 TIME:0943 PATIENT: BRYAN PARADA UNIT #: [id number] ROOM/BED: : 66 AGE: 54 SEX: M [...] Delivery Room air 11/30 939 Temp 98.5 11/29 09 Pulse 79 11/29 0940 Resp 19 11/30 939 Last Documented: Result Date Time Pulse Ox 94 11/29 1345 B/P 161/111 11/29 1345 B/P Mean 127 11/29 1345 O2 Delivery Room air 11/29 1345 Temp 98.2 11/29 134 Pulse 75 11/29 [...] of motion, No swelling Text/Dict Notes Decreased stretch press operator strength in left upper extremity MS Lower Extrem Lower Ext/Pelvis/MS Atraumatic, Inspection NL, Full range of motion, No erythema Skin Skin Atraumatic, Color NL, Warm, Dry, Intact Neurologic Neurologic Oriented X3, Speech NL Text/Dict Notes Decreased strength in the left leg, decreased stretch press operator strength in left arm, left- sided facial [...] % (Auto) (20.5 - 51.1 %) 42.5 [place] % (Auto) (1.7 - 9.3 %) 10.3 H Eos % (Auto) (0.0 - 6.0 %) 2.1 Baso % (Auto) (0.0 - 2.0 %) 0.4 Neut # (Auto) (1.8 - 7.6 K/mm3) 2.4 Lymph # (Auto) (0.6 - 3.0 K/mm3) 2.3 [place] # (Auto) (0.2 - 1.5 K/mm3) 0.6 [...] cardiomegaly. Impression By: [email or web address] [place] M.D. RADIOLOGY - XR CHEST [...] Signed by: patient at 0702 RPT #: [id number] END OF REPORTHCA
[2024-10-15 18:29] LABS: PT Prothrombin Time 14.7 SECONDS (10-13.0); Protime INR 1.31
[2024-10-15 18:39] LABS: Absolute Eosinophils 0.1 K/uL (0-0.5); Absolute Monocytes 0.5 K/uL (0.1-1.3); Absolute Neutrophil 2.7 K/uL (1.8-8.0); Basophils % 0.8 % (0-1.3); Hemoglobin 15.7 g/dL (13.6-17.9); Lymphocytes % 37.7 % (15.3-44.8); MCH 26.9 pg (27.0-35.0); MCHC 32.7 g/dL (32.0-36.0); MCV 82.2 fL (80-100); MPV 9.5 fL (7.6-11.3); Monocytes % 9.9 % (3.3-12.3); Neutrophils % 50.6 % (41.7-73.7); Nucleated Red Blood Cells % 0.5 % (0-0); Platelets 202 thou/uL (152-406); RBC Red Blood Cell Count 5.84 M/uL (4.33-5.43); Red Cell Distribution Width 20.2 % (12.1-15.2)
[2024-10-15 18:46] LABS: Albumin 3.4 g/dL (3.4-5.0); Albumin/Globulin Ratio 0.8 (1.1-1.8); Anion Gap 10.3 mEq/L (5.0-15.0); Bilirubin Direct 0.2 mg/dL (0-0.2); Bilirubin Total 1.2 mg/dL (0.2-1.0); Globulin 4.3 g/dL (2.3-3.5); Protein, Total 7.7 g/dL (6.4-8.2)
[2024-10-15 18:50] LABS: Magnesium 2.1 mg/dL (1.6-2.4); Potassium 4.3 mEq/L (3.5-5.1)
--- NOTE | 2024-10-15 18:51 | RAD REPORT ---
EXAMINATION: ONE VIEW CHEST XR CLINICAL INDICATION: Cough;Chest pain TECHNIQUE: Frontal chest projection is submitted. Examination is limited by patient positioning and t echnique. COMPARISON: 10/10/2024 FINDINGS: Mild interstitial pulmonary edema. The cardiac silhoutte is severely enlarged in size. No displaced f ractures identified. Multilead pacer/defibrillator device. IMPRESSION: CHF.
[2024-10-15 18:52] LABS: Troponin High Sensitivity 92.5 pg/mL (<58.9)
[2024-10-15 18:53] LABS: Influenza A Ag Negative; Influenza B Ag Negative; SARS-CoV-2 Antigen Rapid Res Negative (Negative)
[2024-10-15] MEDS ORDERED: ASPIRIN 81 MG CHEWABLE TABLET ONE (19:37)
[2024-10-15] MEDS ORDERED: FENTANYL CITR 100 MCG/2 ML ONE (19:38)
[2024-10-15] MEDS ORDERED: FUROSEMIDE 40 MG/4 ML VIAL ONE (19:38)
[2024-10-15 20:02] LABS: Anisocytosis 1+; Blood Morphology Comment NOTED (NOT SEEN); Platelet Estimate ADEQ; White Blood Cell Scan OK (OK)
--- NOTE | 2024-10-15 20:03 | P.HP ---
Certification for Inpatient Patient admitted to: Inpatient With expected LOS: >2 Midnights Practitioner: I am a practitioner with admitting privileges, knowledge of patient current condition, hospital course, and medical plan of care. Services: Services provided to patient in accordance with Admission requirements found in Title 42 Section 412.3 of the Code of Federal Regulations Patient History Date of Service: 10/15/24 Reason for admission: SOB History of Present Illness: 58 year old male with past medical history of hypertension, hyperlipidemia, CHF with ejection fraction of 23%status post AICD was brought to ER with chest pain , CKD, DM who presents to the ED with sharp sternal chest pain associated with shortness of breath. He started having pain worsened over the last night and was brought to ER. Denies any fever or chills. No nausea vomiting or diarrhea. Patient was assessed in the ER and is admitted for further management Allergies isosorbide [From Imdur] Allergy (Verified 09/22/22 13:24) Itching Home medications list reviewed: Yes - Past Medical/Surgical History Diabetic: Yes Past Medical History: Reviewed- Non-Contributory -: Diabetes type 2 -: HTN -: CAD -: Chronic systilic congestive heart failure -: Chronic systolic congestive heart failure -: acute kidney failure -: cardiomyopathy Past Surgical History: Reviewed- Non-Contributory -: RIGHT KNEE SX -: ARTIFICIAL LEFT EYE- 1977 -: Cardiac catherization with stent -: pacemaker Psychosocial/ Personal History: patient lives at home with family - Family History Father -: Heart disease, Hypertension Mother -: Diabetes - Social History Smoking Status: Former smoker Alcohol use: No CD- Drugs: No Caffeine use: Yes Review of Systems 10-point ROS is otherwise unremarkable Physical Examination - Vital Signs Temperature: 97.9 F Blood Pressure: 156/104 Pulse: 88 Respirations: 18 Pulse Ox (%): 94 - Physical Exam General: Alert, Oriented x3, Cooperative, Mild distress HEENT: Atraumatic, Normocephalic Neck: Supple Respiratory: Clear to auscultation bilaterally, Crackles/rales Cardiovascular: Regular rate/rhythm, Normal S1 S2 Capillary refill: <2 Seconds Gastrointestinal: Soft and benign, W/out hepatosplenomegaly Musculoskeletal: No clubbing, Swelling Integumentary: No rashes, No tenderness/swelling Neurological: Normal gait, Normal speech, Normal strength at 5/5 x4 extr, Cranial nerves 3-12 intact, Normal reflexes 2+ Lymphatics: No axilla or inguinal lymphadenopathy - Studies Laboratory Data (last 24 hrs) 10/15/24 10/15/24 10/15/24 18:15 18:15 18:15 WBC 5.20 Hgb 15.7 Hct 48.0 Plt Count 202 PT 14.7 H INR 1.31 Sodium 139 Potassium 4.3 BUN 29 H Creatinine 1.96 H Glucose 110 H Magnesium 2.1 Total Bilirubin 1.2 H AST 38 H ALT 46 Alkaline Phosphatase 78 Assessment and Plan - Plan NSTEMI Will trend cardiac enzymes Will monitor telemetry Started on aspirin and statin Will get an echocardiogram Cardiology consult Acute on chronic CHF possibly systolic Monitor closely on telemetry Started on aggressive diuresis X-ray findings consistent with CHF Oxygen supplementation Will try to wean down oxygen requirement Continue home medications Titrate as needed Will obtain an echocardiogram Cardiology consult Hypertension Antihypertensives titrated Continue home medications and titrate as needed Hyperlipidemia Continue statin GIUSEPPE on CKD stage II Monitor renal parameters Electrolytes monitor and replace accordingly Diabetes Insulin sliding scale Accu-Chek before every meal and at bedtime GI/DVT prophylaxis Advanced directive full code Discharge Plan: Home Plan to discharge in: 48 Hours - Advance Directives Does patient have a Living Will: No Does patient have a Durable POA for Healthcare: No - Code Status/Comfort Care Code Status: Full Code Time Spent Managing Pts Care (In Minutes): 54
[2024-10-15] MEDS ORDERED: ACETAMINOPHEN 325 MG TABLET PO PRN (20:05)
[2024-10-15] MEDS ORDERED: ONDANSETRON 4 MG/2 ML VIAL IV PRN (20:05)
[2024-10-15] MEDS: FUROSEMIDE 40 MG/4 ML VIAL IV SCH (20:09)
--- NOTE | 2024-10-15 20:12 | ER ---
Nurse's Notes [facility] Name: Bryan Watts Age: 58 yrs Sex: Male : 1965 Arrival Date: 10/15/2024 Time: 17:27 Bed 16 Private MD: Diagnosis: Acute on chronic combined systolic (congestive) and diastolic (congestive) heart failure;Dyspnea;Chest pain, unspecified Presentation: 10/15 17:40 Chief complaint: SOB, sweats, and chest pain that is worse with deep breathing since hb last night. Coronavirus screen: At this time, the client does not indicate any symptoms associated with coronavirus-19. Ebola Screen: No symptoms or risks identified at this time. Initial Sepsis Screen: Does the patient meet any 2 criteria? No. Patient's initial sepsis screen is negative. Does the patient have a suspected source of infection? No. Patient's initial sepsis screen is negative. Risk Assessment: Do you want to hurt yourself or someone else? Patient reports no desire to harm self or others. Onset of symptoms was October 14, 2024. 17:40 Method Of Arrival: Wheelchair 17:40 Acuity: GABBY 2 hb Triage Assessment: 22:09 Respiratory: Onset: The symptoms/episode began/occurred gradually, the patient has mild cp4 shortness of breath. Historical: - Allergies: 17:41 Isosorbide Dinitrate; hb - Home Meds: 17:41 "high blood pressure med" [Active]; "water pill" [Active]; hb - PMHx: 17:41 cardiomyopathy; Congestive heart failure; Diabetes - IDDM; Hyperlipidemia; hb Hypertension; kidney disease; - PSHx: 17:41 Pace maker; hb - Immunization history:: Adult Immunizations up to date. - Infectious Disease History:: Denies. - Social history:: Smoking status: Patient denies any tobacco usage or history of. Screenin:19 [facility] ED Fall Risk Assessment (Adult) History of falling in the last 3 months, ph including since admission No falls in past 3 months (0 pts) Confusion or Disorientation No (0 pts) Intoxicated or Sedated No (0 pts) Impaired Gait No (0 pts) Mobility Assist Device Used No (0 pt) Altered Elimination No (0 pt) Score/Fall Risk Level 0 - 2 = Low Risk Oriented to surroundings, Maintained a safe environment, Hourly rounding (assess needs \\T\\ fall precautionary measures) done. Abuse screen: Denies threats or abuse. Denies injuries from another. Nutritional screening: No deficits noted. Tuberculosis screening: No symptoms or risk factors identified. Assessment: 18:17 General: Appears in no apparent distress. uncomfortable, Behavior is calm, cooperative, ph appropriate for age. Pain: Complains of pain in chest. Neuro: Level of Consciousness is awake, alert, obeys commands, Oriented to person, place, time, situation. Cardiovascular: Reports chest pain, diaphoresis, shortness of breath, Rhythm is Respiratory: Reports shortness of breath at rest on exertion cough that is non-productive, Airway is patent Respiratory effort is labored, Respiratory pattern is tachypnea. GI: No signs and/or symptoms were reported involving the gastrointestinal system. Derm: Skin is diaphoretic, Skin is normal. 20:16 Reassessment: Patient appears in no apparent distress at this time. No changes from cp4 previously documented assessment. Patient and/or family updated on plan of care and expected duration. Pain level reassessed. Patient is alert, oriented x 3, equal unlabored respirations, skin warm/dry/pink. General:. Respiratory: Breath sounds are clear bilaterally. Vital Signs: 17:40 BP 157 / 104; Pulse 87; Resp 18; Temp 97.9; Pulse Ox 97% on R/A; Weight 129.27 kg; hb Height 6 ft. 2 in. ; Pain 8/10; 18:20 BP 153 / 106; Pulse 88; Resp 22; Pulse Ox 94% on R/A; ph 20:16 BP 153 / 110; Pulse 80; Resp 18; Pulse Ox 97% ; cp4 21:08 BP 146 / 109; Pulse 74; Resp 18; Pulse Ox 98% ; cp4 17:40 Body Mass Index 36.59 (129.27 kg, 187.96 cm) hb 17:40 Pain Scale: Adult hb Vitals: 18:20 Cardiac Rhythm Assessment Paced. ph ED Course: 17:30 Patient arrived in ED. al6 17:31 Jamil Carter PA is PHCP. cp 17:31 Murtaza Frey MD is Attending Physician. cp 17:41 Triage completed. hb 17:42 Arm band placed on. hb 17:42 Client placed on continuous cardiac and pulse oximetry monitoring. NIBP monitoring hb applied. alarm security or surveillance monitor on. Pulse ox on. NIBP on. 17:45 Alexa Saldaña, RN is Primary Nurse. ph 18:19 Initial lab(s) drawn, by me, sent to lab. EKG done, COVID swab sent to lab. Flu and/or ph RSV swab sent to lab. Missed attempt(s): 22 gauge in right antecubital area. Bleeding controlled, band aid applied, catheter tip intact. Inserted saline lock: 22 gauge in right upper arm, using aseptic technique. Blood collected. Flushed with 10 mL NS. 18:20 Patient has correct armband on for positive identification. Bed in low position. Call ph light in reach. Side rails up X 1. Door closed. Noise minimized. 18:21 Basic Metabolic Panel Sent. ph 18:21 CBC with Diff Sent. ph 18:21 Magnesium Sent. ph 18:21 LFT's Sent. ph 18:21 NT PRO-BNP Sent. ph 18:21 PT-INR Sent. ph 18:21 Troponin HS Sent. ph 18:21 COVID-19 Ag + Flu A+B Ag Sent. ph 18:39 XRAY Chest (1 view) In Process Unspecified. EDMS 18:52 Notified Nurse Practitioner and/or Physician Smutter of a critical lab result(s), hb TROP 92.5. 20:10 Ulices Scott MD is Hospitalizing Provider. cp 22:06 No provider procedures requiring assistance completed. Patient admitted, IV remains in cp4 place. 22:07 Provided Education on: admission. cp4 Administered Medications: 18:21 Drug: Tussionex Pennkinetic ER PO Suspension 5 ml PO once Route: PO; ph 20:18 Follow up: Response: No adverse reaction cp4 18:22 Drug: Levalbuterol Inhalation 1.25 mg Inhalation once Route: Inhalation; ph 20:17 Follow up: Response: No adverse reaction cp4 19:49 Drug: Furosemide IVP 40 mg IVP once; give over 2 minutes Route: IVP; Site: right cp4 antecubital; 20:17 Follow up: Response: No adverse reaction cp4 19:50 Drug: fentaNYL (PF) IVP 25 mcg IVP once Route: IVP; Site: right antecubital; cp4 20:17 Follow up: Response: No adverse reaction; Pain is decreased cp4 19:50 Drug: Aspirin PO Chewable Tablet 324 mg PO once; 81 mg tablets x 4 Route: PO; cp4 20:17 Follow up: Response: No adverse reaction cp4 Medication: 18:20 VIS not applicable for this client. ph Outcome: 20:11 Decision to Hospitalize by Provider. cp 22:06 Admitted to Med/surg accompanied by tech, via wheelchair, room 401, with chart, cp4 22:06 Condition: stable 22:06 Instructed on the need for admit, 22:13 Patient left the ED. cp4 Signatures: Dispatcher [employer] EDAlexa Valerio RN RN ph Jamil Carter, Roybn Min cp, RN RN Loan Cervantes cp4 Marianela Sosa
--- NOTE | 2024-10-15 20:12 | EDPHYS ---
Physician Documentation [facility] Name: Bryan Watts Age: 58 yrs Sex: Male : 1965 Arrival Date: 10/15/2024 Time: 17:27 Bed 16 Private MD: ED Physician Murtaza Frey HPI: 10/15 17:58 This 58 yrs old Black Male presents to ER via Wheelchair with complaints of Breathing cp Difficulty, Chest Pain. 17:58 The patient or guardian reports chest pain that is located primarily in the anterior cp chest wall. 17:58 Onset: last night. cp 17:58 The pain does not radiate. cp 17:58 Associated signs and symptoms: Pertinent positives: cough, shortness of breath, cp Pertinent negatives: abdominal pain, diaphoresis, lower extremity pain, lower extremity swelling, vomiting. The chest pain is described as constant. Historical: - Allergies: 17:41 Isosorbide Dinitrate; hb - Home Meds: 17:41 "high blood pressure med" [Active]; "water pill" [Active]; hb - PMHx: 17:41 cardiomyopathy; Congestive heart failure; Diabetes - IDDM; Hyperlipidemia; hb Hypertension; kidney disease; - PSHx: 17:41 Pace maker; hb - Immunization history:: Adult Immunizations up to date. - Infectious Disease History:: Denies. - Social history:: Smoking status: Patient denies any tobacco usage or history of. ROS: 18:00 Constitutional: Negative for body aches, chills, fever, poor PO intake, cp 18:00 Eyes: Negative for injury, pain, redness, and discharge, cp 18:00 ENT: Negative for drainage from ear(s), ear pain, sore throat, difficulty swallowing, difficulty handling secretions, 18:00 Cardiovascular: Positive for chest pain, Negative for palpitations, 18:00 Respiratory: Positive for cough, shortness of breath, at rest. Negative for wheezing, 18:00 Abdomen/GI: Negative for abdominal pain, vomiting, diarrhea, constipation, 18:00 Neuro: Negative for altered mental status, dizziness, headache, syncope, near syncope, weakness, 18:00 All other systems are negative, Exam: 18:05 Constitutional: The patient appears in no acute distress, alert, awake, cp non-diaphoretic, non-toxic, well developed, well nourished, obese, uncomfortable, 18:05 Head/Face: Normocephalic, atraumatic. cp 18:05 Eyes: Periorbital structures: appear normal, Conjunctiva: normal, no exudate, no injection, Sclera: no appreciated abnormality, Lids and lashes: appear normal, bilaterally, 18:05 ENT: External ear(s): are unremarkable, Nose: is normal, Mouth: Lips: moist, Oral mucosa: moist, Posterior pharynx: Airway: no evidence of obstruction, patent, 18:05 Neck: ROM/movement: is normal, is supple, without pain, no range of motions limitations, no meningismus, no nuchal rigidity, 18:05 Chest/axilla: Inspection: normal, 18:05 Cardiovascular: Rate: normal, Rhythm: regular, Edema: no gross edema noted, JVD: is not appreciated, 18:05 ECG was reviewed by the Attending Physician. 18:05 Respiratory: the patient does not display signs of respiratory distress, Respirations: normal, no use of accessory muscles, no retractions, Breath sounds: decreased breath sounds, that are mild, throughout, stridor, is not appreciated, 18:05 Abdomen/GI: Inspection: obese Palpation: abdomen is soft and non-tender, in all quadrants, 18:05 Back: pain, is absent, ROM is normal, 18:05 Neuro: Orientation: to person, place \\T\\ time. Mentation: able to follow commands, Motor: moves all fours, strength is normal, Vital Signs: 17:40 BP 157 / 104; Pulse 87; Resp 18; Temp 97.9; Pulse Ox 97% on R/A; Weight 129.27 kg; hb Height 6 ft. 2 in. ; Pain 8/10; 18:20 BP 153 / 106; Pulse 88; Resp 22; Pulse Ox 94% on R/A; ph 20:16 BP 153 / 110; Pulse 80; Resp 18; Pulse Ox 97% ; cp4 21:08 BP 146 / 109; Pulse 74; Resp 18; Pulse Ox 98% ; cp4 17:40 Body Mass Index 36.59 (129.27 kg, 187.96 cm) hb 17:40 Pain Scale: Adult hb MDM: 18:00 Differential diagnosis: abnormal EKG, acute myocardial infarction, acute pericarditis, cp chest wall pain, pancreatitis, pericarditis, pleurisy, pneumonia, pneumothorax, pulmonary embolus, stable angina, thoracic aortic disection, unstable angina. 20:00 The patient was given aspirin in the Emergency Department. cp 20:00 Data reviewed: vital signs, nurses notes, lab test result(s), EKG, radiologic studies, cp plain films, and as a result, I will admit patient. I considered the following discharge prescriptions or medication management in the emergency department Medications were administered in the Emergency Department. See MAR. Independent interpretation of the following test(s) in the Emergency Department EKG: See my EKG interpretation above. Care significantly affected by the following chronic conditions: Diabetes, Hypertension, Congestive Heart Failure, Obesity. Counseling: I had a detailed discussion with the patient and/or guardian regarding the historical points, exam findings, and any diagnostic results supporting the discharge/admit diagnosis, lab results, radiology results, the need for further work-up and treatment in the hospital. 20:11 Medical Screening Exam initiated 10/15 17:57 Order name: COVID-19 Ag + Flu A+B Ag; Complete Time: 19:28 10/15 17:57 Order name: Basic Metabolic Panel; Complete Time: 19:28 / 19:29 Interpretation: Normal except: CL 108; GLUC 110; BUN 29; CRE 1.96; GFR 39. 10/15 17:57 Order name: CBC with Diff 03/ 19:36 Interpretation: Normal except: RBC 5.84; MCH 26.9; RDW 20.2. 10/15 17:57 Order name: LFT's; Complete Time: 19:28 03/15 19:29 Interpretation: AST 38; BILIT 1.2; IBILI, CALC 1.0; GLOB 4.3; A/G 0.8. 10/15 17:57 Order name: Magnesium; Complete Time: 19:28 / 17:57 Order name: NT PRO-BNP; Complete Time: 19:28 / 19:29 Interpretation: Abnormal: NT PRO-BNP 8577. 10/15 17:57 Order name: PT-INR; Complete Time: 19:28 10/15 19:41 Interpretation: Normal except: PT 14.7. 10/15 17:57 Order name: Troponin HS; Complete Time: 19:28 10/15 19:30 Interpretation: Abnormal: Troponin HS 92.5. cp 10/15 18:47 Order name: CBC Smear Scan EDFL 10/15 20:11 Order name: Urinalysis w/ reflexes EDFL 10/15 20:11 Order name: CBC with Automated Diff EDFL 10/15 20:11 Order name: CBC with Automated Diff EDFL 10/15 20:11 Order name: Comprehensive Metabolic Panel EDFL 10/15 20:11 Order name: Comprehensive Metabolic Panel EDFL 10/15 20:11 Order name: Troponin High Sensitivity EDFL 10/15 20:11 Order name: Troponin High Sensitivity EDFL 10/15 20:11 Order name: Troponin High Sensitivity EDFL 10/15 20:11 Order name: Troponin High Sensitivity EDFL 10/15 17:57 Order name: XRAY Chest (1 view); Complete Time: 19:28 cp 10/15 17:57 Order name: Cardiac monitoring; Complete Time: 17:58 cp 10/15 17:57 Order name: EKG - Nurse/Tech; Complete Time: 17:58 cp 10/15 17:57 Order name: IV Saline Lock; Complete Time: 18:21 cp 10/15 17:57 Order name: Labs collected and sent; Complete Time: 18:21 cp 10/15 17:57 Order name: O2 Per Protocol; Complete Time: 17:58 cp 10/15 17:57 Order name: O2 Sat Monitoring; Complete Time: 17:58 cp EC:05 Rate is 85 beats/min. Rhythm is regular, Paced. NH interval is normal. QRS interval is cp prolonged at 166 msec. QT interval is normal. T waves are Inverted in leads aVL, aVR, V2. Interpreted by me. Reviewed by me. Administered Medications: 18:21 Drug: Tussionex Pennkinetic ER PO Suspension 5 ml PO once Route: PO; ph 20:18 Follow up: Response: No adverse reaction cp4 18:22 Drug: Levalbuterol Inhalation 1.25 mg Inhalation once Route: Inhalation; ph 20:17 Follow up: Response: No adverse reaction cp4 19:49 Drug: Furosemide IVP 40 mg IVP once; give over 2 minutes Route: IVP; Site: right cp4 antecubital; 20:17 Follow up: Response: No adverse reaction cp4 19:50 Drug: fentaNYL (PF) IVP 25 mcg IVP once Route: IVP; Site: right antecubital; cp4 20:17 Follow up: Response: No adverse reaction; Pain is decreased cp4 19:50 Drug: Aspirin PO Chewable Tablet 324 mg PO once; 81 mg tablets x 4 Route: PO; cp4 20:17 Follow up: Response: No adverse reaction cp4 Disposition: 19:28 Co-signature as Attending Physician, Murtaza Frey MD I reviewed the patient's care rt provided by the Advanced Practice Provider and agree with the diagnosis and treatment plan. Disposition Summary: 10/15/24 20:11 Hospitalization Ordered Notes: Hospitalization Status: Inpatient Admission cp Provider: Ulices Scott cp Location: Telemetry/MedSurg (Inpatient) cp Condition: Stable cp Problem: an acute exacerbation cp Symptoms: have improved cp Bed/Room Type: Standard cp Room Assignment: 401(10/15/24 20:59) cg Diagnosis - Acute on chronic combined systolic (congestive) and diastolic (congestive) heart cp failure - Dyspnea cp - Chest pain, unspecified cp Forms: - Medication Reconciliation Form cp - SBAR form cp - Leadership Thank You Letter cp Signatures: Dispatcher [employer] EDMS Alexa Saldaña RN RN ph Jamil Carter PA PA cp Macy Vazquez RN RN cg Robyn Lake RN RN Murtaza Frey MD MD rt Loan Samuel cp4 Corrections: (The following items were deleted from the chart) 17:58 17:58 COVID-19 Ag + Flu A+B Ag+I.LAB.BRZ ordered. EDMS EDMS 17:58 17:58 BASIC METABOLIC PANEL+C.LAB.BRZ ordered. EDMS EDMS 17:58 17:58 CBC+H.LAB.BRZ ordered. EDMS EDMS 17:58 17:58 HEPATIC FUNCTION+C.LAB.BRZ ordered. EDMS EDMS 17:58 17:58 MAGNESIUM+C.LAB.BRZ ordered. EDMS EDMS 17:58 17:58 PROBNP+C.LAB.BRZ ordered. EDMS EDMS 17:58 17:58 PROTIME (+INR)+COAG.LAB.BRZ ordered. EDMS EDMS 17:58 17:58 Troponin High Sensitivity+C.LAB.BRZ ordered. EDMS EDMS 17:58 17:58 Chest Single View+RAD.RAD.BRZ ordered. EDMS EDMS 20:59 20:11 cp cg
[2024-10-15] MEDS ORDERED: GLUCAGON 1 MG/VIAL IM PRN (22:59)
[2024-10-15] MEDS ORDERED: HYDROCODONE/APAP 5/325 MG TAB PO PRN (22:59)
[2024-10-15] MEDS ORDERED: D10W 125 ML IV PRN (22:59)
[2024-10-15 23:00] VITALS: BMI 36.1
[2024-10-15] MEDS: MORPHINE 2 MG/ML SYR IV PRN (23:13)
--- NOTE | 2024-10-16 06:43 | P.PN ---
Subjective Date of Service: 10/16/24 Chief Complaint: SOB Subjective: Improving Review of Systems 10-point ROS is otherwise unremarkable Physical Examination - Vital Signs Temperature: 97.7 F Blood Pressure: 137/94 Pulse: 67 Respirations: 22 Pulse Ox (%): 100 - Physical Exam General: Alert, In no apparent distress, Oriented x3 HEENT: Atraumatic, Normocephalic Neck: Supple Respiratory: Clear to auscultation bilaterally, Crackles/rales Cardiovascular: Regular rate/rhythm, Normal S1 S2 Capillary refill: <2 Seconds Gastrointestinal: Soft and benign, W/out hepatosplenomegaly Musculoskeletal: No clubbing Integumentary: No rashes Neurological: Normal gait, Normal speech, Normal strength at 5/5 x4 extr Lymphatics: No axilla or inguinal lymphadenopathy - Studies Laboratory Data (last 24 hrs) 10/15/24 10/15/24 10/15/24 18:15 18:15 18:15 WBC 5.20 Hgb 15.7 Hct 48.0 Plt Count 202 PT 14.7 H INR 1.31 Sodium 139 Potassium 4.3 BUN 29 H Creatinine 1.96 H Glucose 110 H Magnesium 2.1 Total Bilirubin 1.2 H AST 38 H ALT 46 Alkaline Phosphatase 78 Assessment And Plan - Plan NSTEMI Will trend cardiac enzymes Will monitor telemetry Started on aspirin and statin Will get an echocardiogram Cardiology consult Acute on chronic CHF possibly systolic Monitor closely on telemetry Started on aggressive diuresis X-ray findings consistent with CHF Oxygen supplementation Will try to wean down oxygen requirement Continue home medications Titrate as needed Will obtain an echocardiogram Cardiology consult Hypertension Antihypertensives titrated Continue home medications and titrate as needed Hyperlipidemia Continue statin GIUSEPPE on CKD stage II Monitor renal parameters Electrolytes monitor and replace accordingly Diabetes Insulin sliding scale Accu-Chek before every meal and at bedtime GI/DVT prophylaxis Advanced directive full code Time Spent Managing PTS Care (In Minutes): 48
[2024-10-16] MEDS: INSULIN REGULAR (HUMAN) 100 UNIT/ML SQ SCH (07:30)
[2024-10-16 07:58] LABS: Absolute Eosinophils 0.1 K/uL (0-0.5); Absolute Lymphocytes (CBC) 1.6 K/uL (0.7-4.9); Absolute Monocytes 0.4 K/uL (0.1-1.3); Absolute Neutrophil 1.8 K/uL (1.8-8.0); Basophils % 1.2 % (0-1.3); Eosinophils % 2.5 % (0-4.4); Hematocrit 45.8 % (39.6-49.0); Hemoglobin 14.7 g/dL (13.6-17.9); Lymphocytes % 41.1 % (15.3-44.8); MCH 26.3 pg (27.0-35.0); MCV 82.3 fL (80-100); MPV 8.8 fL (7.6-11.3); Neutrophils % 45.2 % (41.7-73.7); Nucleated Red Blood Cells % 0.4 % (0-0); Platelets 179 thou/uL (152-406); RBC Red Blood Cell Count 5.57 M/uL (4.33-5.43); Red Cell Distribution Width 20.1 % (12.1-15.2)
[2024-10-16] MEDS: ENOXAPARIN 40 MG/0.4 ML SQ SCH (08:02)
[2024-10-16 08:12] LABS: Albumin 3.4 g/dL (3.4-5.0); Albumin/Globulin Ratio 0.9 (1.1-1.8); Anion Gap 10.4 mEq/L (5.0-15.0); Bilirubin Total 1.1 mg/dL (0.2-1.0); Globulin 3.7 g/dL (2.3-3.5); Potassium 3.4 mEq/L (3.5-5.1); Protein, Total 7.1 g/dL (6.4-8.2)
[2024-10-16] MEDS: POTASSIUM CL SA 10 MEQ TAB PO SCH (11:00)
--- NOTE | 2024-10-16 15:25 | P.CNS ---
Date of Consult: 10/16/24 Chief Complaint: SOB History of Present Illness: Patient with PMH of Non ischemic cardiomyopathy presented with worsening SOB, DELGADO and chest pressure, no palpitations, no syncope. Allergies isosorbide [From Imdur] Allergy (Verified 09/22/22 13:24) Itching Home medications list reviewed: Yes Home Medications: Acetaminophen with Codeine [Acetaminophen-Cod #3 Tablet] 1 tab PO DAILY PRN 10/16/24 Amiodarone HCl [Pacerone] 200 mg PO DAILY 10/16/24 Aspirin [Adult Low Dose Aspirin EC] 81 mg PO DAILY 10/16/24 Atorvastatin Calcium [Lipitor] 80 mg PO BEDTIME 10/16/24 Buspirone HCl [Buspar*] 5 mg PO BID 10/16/24 Empagliflozin [Jardiance] 10 mg PO DAILY 10/16/24 Furosemide 40 mg PO DAILY 10/16/24 Lisinopril [Zestril] 5 mg PO DAILY 10/16/24 Omeprazole [Prilosec] 40 mg PO DAILY 10/16/24 - Past Medical/Surgical History Diabetic: Yes -: Diabetes type 2 -: HTN -: CAD -: Chronic systilic congestive heart failure -: Chronic systolic congestive heart failure -: acute kidney failure -: cardiomyopathy -: RIGHT KNEE SX -: ARTIFICIAL LEFT EYE- 1977 -: Cardiac catherization with stent -: pacemaker Psychosocial/ Personal History: patient lives at home with family - Family History Father Medical History: Heart disease, Hypertension Mother Medical History: Diabetes - Social History Smoking Status: Never smoker Alcohol use: No CD- Drugs: No Caffeine use: Yes Place of Residence: Home Review of Systems 10-point ROS is otherwise unremarkable Physical Examination Temp Pulse Resp BP Pulse Ox 98 F 79 16 131/94 H 100 10/16/24 12:00 10/16/24 12:00 10/16/24 12:00 10/16/24 12:00 10/16/24 12:00 General: Alert, In no apparent distress HEENT: Atraumatic, PERRLA, Mucous membr. moist/pink, EOMI, Sclerae nonicteric Neck: Supple, 2+ carotid pulse no bruit, No LAD, Without JVD or thyroid abnormality Respiratory: Clear to auscultation bilaterally, Normal air movement Cardiovascular: Regular rate/rhythm, Normal S1 S2 Gastrointestinal: Normal bowel sounds, No tenderness Musculoskeletal: No tenderness Integumentary: No rashes Neurological: Normal gait, Normal speech, Normal tone, Normal affect Lymphatics: No axilla or inguinal lymphadenopathy Laboratory Data (last 24 hrs) 10/15/24 10/15/24 10/15/24 18:15 18:15 18:15 WBC 5.20 Hgb 15.7 Hct 48.0 Plt Count 202 PT 14.7 H INR 1.31 Sodium 139 Potassium 4.3 BUN 29 H Creatinine 1.96 H Glucose 110 H Magnesium 2.1 Total Bilirubin 1.2 H AST 38 H ALT 46 Alkaline Phosphatase 78 - Problems (1) Acute on chronic combined systolic (congestive) and diastolic (congestive) heart failure Current Visit: Yes Status: Acute Plan: continue IV Lasix continue to monitor input and output and electolytes Coreg 25 mg po BID Aldactone 25 mg daily Farxiga 10 mg daily (2) NSTEMI (non-ST elevated myocardial infarction) Current Visit: Yes Status: Acute Plan: secondary to CHF exacerbation and GIUSEPPE, ASA 81 mg daily Liptitor 40 mg daily Outpatinet stress test
[2024-10-17] MEDS: ZOLPIDEM TARTRATE 5 MG TABLET PO PRN (01:17)
[2024-10-17 05:41] LABS: Specific Gravity 1.011 (1.005-1.030); Urine Bilirubin NEGATIVE (Negative); Urine Blood Negative (Negative); Urine Clarity Clear (Clear); Urine Color Light-Yellow (Yellow); Urine Glucose NEGATIVE (Negative); Urine Ketones NEGATIVE (Negative); Urine Microscopic Reflex YN NO UMIC; Urine Nitrite NEGATIVE (Negative); Urine Protein NEGATIVE (Negative); Urine Urobilinogen Normal (Normal); Urine pH 6.5 (5.0-7.0)
[2024-10-17 07:53] LABS: Hematocrit 46.1 % (39.6-49.0); Hemoglobin 14.3 g/dL (13.6-17.9); MCHC 31.1 g/dL (32.0-36.0); MCV 83.4 fL (80-100); MPV 8.7 fL (7.6-11.3); Platelets 191 thou/uL (152-406); RBC Red Blood Cell Count 5.53 M/uL (4.33-5.43); Red Cell Distribution Width 19.9 % (12.1-15.2)
[2024-10-17 08:07] LABS: Anion Gap 8.8 mEq/L (5.0-15.0); Potassium 3.8 mEq/L (3.5-5.1)
[2024-10-17] MEDS: ASPIRIN EC 81 MG TAB PO SCH (08:18)
[2024-10-17] MEDS: BUSPIRONE HCL 5 MG TABLET PO SCH (08:18)
[2024-10-17] MEDS: POTASSIUM 25 MEQ EFFERV TAB PO ONE (08:34)
--- NOTE | 2024-10-17 09:40 | P.PN ---
Date of Service: 10/17/24 Subjective: continues with dyspnea, but improved compared to yesterday SOB worsened with light activity denies any new / worsening problems vitals stable ROS: 10 point ROS as noted above, otherwise negative Physical Exam: GEN: Alert, oriented, NAD CV: Regular rate and rhythm, trace edema Pulm: Nonlabored respirations on 2L NC ABD: soft, nontender, nondistended Neuro: Normal speech, normal affect Problem List: Acute on chronic combined systolic/diastolic CHF (5-10% EF on 10/09/24) NSTEMI GIUSEPPE on CKD2 Hypertension Hyperlipidemia NIDDM2 Hx Obstructive sleep apnea Hx CVA (Right-sided MCA territory 2021) Hx a-fib on chronic anticoagulation Hx Nonischemic cardiomyopathy Acute on chronic combined systolic/diastolic CHF (5-10% EF on 10/09/24)I NSTEMI on admission, presents with chest pain associated with worsening shortness of breath. SOB worsened with light activity. Recent echo (10/09): 5-10% EF with severe global hypokinesis, grade 2 diastolic dysfunction, mildly elevated filling pressures, trace MR, mild TR, prior EF: 15-20% 07/2022 -> 15-20% 07/2023 -> 5-10% 05/2024 (per [facility] recs) CXR on admission with mild pulmonary edema. Wean oxygen as tolerated. Does not have home O2 Started on IV lasix 40 mg q8h on admission Cardiology consulted Asa 81mg, statin 10/16 - Troponins mildly elevated but trended flat. NSTEMI secondary to CHF/GIUSEPPE Cardiology recommending outpatient stress test. Continue IV lasix 40 mg q8h 10/17 - Continues with dyspnea, but improved compared to yesterday Continue IV lasix - decrease to BID GIUSEPPE on CKD2 Renal function improving Continue to monitor renal function, electrolytes Continue IV lasix Hypertension Hyperlipidemia NIDDM2 Hx Obstructive sleep apnea Hx CVA (Right-sided MCA territory 2021) Hx a-fib on chronic anticoagulation Hx Nonischemic cardiomyopathy accu-cheks, SSI confirm home meds, restart as appropriate 10/17 - Home buspirone, statin resumed VTE: Lovenox Code: Full Dispo: Home, ~1 day Pending further diuresis, eval for home o2 Time Spent Managing Pts Care (In Minutes): 55
--- NOTE | 2024-10-17 10:31 | P.PN ---
Subjective Date of Service: 10/17/24 Chief Complaint: SOB Subjective: No new changes, No C/O voiced, Tolerating diet, Ambulating, Improving Review of Systems 10-point ROS is otherwise unremarkable Physical Examination - Vital Signs Temperature: 97.9 F Blood Pressure: 142/95 Pulse: 72 Respirations: 18 Pulse Ox (%): 100 - Physical Exam General: Alert, In no apparent distress HEENT: Atraumatic, PERRLA, EOMI Neck: Supple, JVD not distended Respiratory: Clear to auscultation bilaterally, Normal air movement Cardiovascular: Regular rate/rhythm, Normal S1 S2 Gastrointestinal: Normal bowel sounds, No tenderness Musculoskeletal: No tenderness Integumentary: No rashes Neurological: Normal speech, Normal tone, Normal affect Lymphatics: No axilla or inguinal lymphadenopathy - Studies Medications List Reviewed: Yes Assessment And Plan - Current Problems (Diagnosis) (1) Acute on chronic combined systolic (congestive) and diastolic (congestive) heart failure Current Visit: Yes Status: Acute Plan: continue IV Lasix continue to monitor input and output and electolytes Coreg 25 mg po BID Aldactone 25 mg daily Farxiga 10 mg daily (2) NSTEMI (non-ST elevated myocardial infarction) Current Visit: Yes Status: Acute Plan: secondary to CHF exacerbation and GIUSEPPE, ASA 81 mg daily Liptitor 40 mg daily Outpatinet stress test
[2024-10-17] MEDS: FUROSEMIDE 40 MG/4 ML VIAL IV SCH (16:12)
[2024-10-17] MEDS: AMIODARONE HCL 200 MG TAB PO SCH (16:27)
[2024-10-17] MEDS: ATORVASTATIN 80 MG TAB PO SCH (20:10)
[2024-10-18 07:36] LABS: Anion Gap 10.6 mEq/L (5.0-15.0); Potassium 3.6 mEq/L (3.5-5.1)
[2024-10-18 08:58] VITALS: O2SAT 97
[2024-10-18] MEDS: POTASSIUM CL SA 10 MEQ TAB PO ONE (12:06)
--- NOTE | 2024-10-18 15:37 | P.DS ---
Admission Date: 10/15/24 Discharge Date: 10/18/24 Disposition: DC HOME/HOME HEALTH CARE Discharge Condition: FAIR Reason for Admission: SOB Brief History of Present Illness: 58 year old male with past medical history of hypertension, hyperlipidemia, systolic heart failure with recent ejection fraction of 5-10%status post AICD was brought to ER with chest pain, associated with shortness of breath. He started having pain worsened over the last night and was brought to ER. Denies any fever or chills. No nausea vomiting or diarrhea. Patient was assessed in the ER, chest x-ray showed mild interstitial pulmonary edema, initial troponin mildly elevated. Patient was hospitalized for further management. Hospital Course: Problem List: Acute on chronic combined systolic/diastolic CHF (5-10% EF on 10/09/24) NSTEMI GIUSEPPE on CKD2 Hypertension Hyperlipidemia NIDDM2 Hx Obstructive sleep apnea Hx CVA (Right-sided MCA territory 2021) Hx a-fib on chronic anticoagulation Hx Nonischemic cardiomyopathy Patient was admitted to the medical floor and the following medical problems addressed: Acute on chronic combined systolic/diastolic CHF (5-10% EF on 10/09/24)I NSTEMI on admission, presents with chest pain associated with worsening shortness of breath. SOB worsened with light activity. Recent echo (10/09): 5-10% EF with severe global hypokinesis, grade 2 diastolic dysfunction, mildly elevated filling pressures, trace MR, mild TR, prior EF: 15-20% 07/2022 -> 15-20% 07/2023 -> 5-10% 05/2024 (per [facility] recs) CXR on admission with mild pulmonary edema. Wean oxygen as tolerated. Does not have home O2 Patient treated with IV lasix 40 mg q8h and tapered down to 40 mg every 12 hours Cardiology evaluated patient and recommended medical management with diuresis Continue Asa 81mg, statin Oxygen saturation is 90% on room air. Patient's shortness of breath improved with treatment. He has been ambulatory. Patient discharged to take oral Lasix 40 mg twice a day followed by 40 mg daily. GIUSEPPE on CKD2 Renal function was monitored in ED improved to baseline with diuresis Hypertension Hyperlipidemia NIDDM2 Hx Obstructive sleep apnea Hx CVA (Right-sided MCA territory 2021) Hx a-fib on chronic anticoagulation Hx Nonischemic cardiomyopathy Continued home medications. Vital Signs/Physical Exam: Temp Pulse Resp BP Pulse Ox 97.8 F 79 16 135/90 98 10/18/24 12:00 10/18/24 12:00 10/18/24 14:58 10/18/24 12:00 10/18/24 14:58 General: Alert, In no apparent distress, Oriented x3 HEENT: Mucous membr. moist/pink Neck: JVD not distended Respiratory: Clear to auscultation bilaterally, Normal air movement Cardiovascular: No edema, Regular rate/rhythm, Normal S1 S2 Gastrointestinal: Soft and benign, Non-distended, No tenderness Musculoskeletal: No swelling Integumentary: No cyanosis Neurological: Normal strength at 5/5 x4 extr Laboratory Data at Discharge: WBC 4.60 thou/uL (4.3-10.9) 10/17/24 07:41 Hgb 14.3 g/dL (13.6-17.9) 10/17/24 07:41 Hct 46.1 % (39.6-49.0) 10/17/24 07:41 Plt Count 191 thou/uL (152-406) 10/17/24 07:41 PT 14.7 SECONDS (10-13.0) H 10/15/24 18:15 INR 1.31 10/15/24 18:15 Sodium 138 mEq/L (136-145) 10/18/24 06:52 Potassium 3.6 mEq/L (3.5-5.1) 10/18/24 06:52 BUN 27 mg/dL (7-18) H 10/18/24 06:52 Creatinine 1.55 mg/dL (0.70-1.30) H 10/18/24 06:52 Glucose 96 mg/dL (74-106) 10/18/24 06:52 Magnesium 2.0 mg/dL (1.6-2.4) 10/18/24 06:52 Total Bilirubin 1.1 mg/dL (0.2-1.0) H 10/16/24 07:40 AST 19 U/L (15-37) 10/16/24 07:40 ALT 36 U/L (16-61) 10/16/24 07:40 Alkaline Phosphatase 69 U/L (45-117) 10/16/24 07:40 Home Medications: Acetaminophen with Codeine [Acetaminophen-Cod #3 Tablet] 1 tab PO DAILY PRN 10/16/24 Amiodarone HCl [Pacerone] 200 mg PO DAILY 10/16/24 Aspirin [Adult Low Dose Aspirin EC] 81 mg PO DAILY 10/16/24 Atorvastatin Calcium [Lipitor] 80 mg PO BEDTIME 10/16/24 Buspirone HCl [Buspar*] 5 mg PO BID 10/16/24 Empagliflozin [Jardiance] 10 mg PO DAILY 10/16/24 Lisinopril [Zestril] 5 mg PO DAILY 10/16/24 Omeprazole [Prilosec] 40 mg PO DAILY 10/16/24 Furosemide 40 mg PO BID #37 tab 10/18/24 New Medications: Furosemide 40 mg PO BID #37 tab Diet: AHA Activity: Ad shara Followup: David Contreras MD [Primary Care Provider] - 1-2 Weeks Time spent managing pt's care (in minutes): 38
[2024-10-18 16:05] VITALS: BP 122/92; TEMP 97.7
--- NOTE | 2024-10-19 12:46 | EKG ---
Test Date: 2024-10-15 Test Time: 17:45:04 Hydro Pneumatic Tester: AM MEASUREMENT RESULTS: Intervals: Rate: 85 KS: 112 QRSD: 166 QT: 474 QTc: 564 [place]: P: 85 KS: 112 QRS: -90 T: 88 INTERPRETIVE STATEMENTS: Electronic ventricular pacemaker Compared to ECG 10/10/2024 04:45:25 No significant changes Electronically Signed On 10-19-24 12:31:36 CDT by Akhil Cassidy
== END 2024-10-18 17:50 | disposition home health service (06) | DRG 280 ==
LOC: ER 17:27 → ERHOLD 20:05 → 4TH 21:10
PROVIDERS: ADMIT Family Medicine; ATTEND Internal Medicine
DX: I13.0 Hypertensive heart and chronic kidney disease with heart failure and stage 1 through stage 4 chronic kidney disease, or unspecified chronic kidney disease (principal); I50.23 Acute on chronic systolic (congestive) heart failure; I21.A1 Myocardial infarction type 2; N17.9 Acute kidney failure, unspecified; N18.2 Chronic kidney disease, stage 2 (mild); E11.22 Type 2 diabetes mellitus with diabetic chronic kidney disease; E78.5 Hyperlipidemia, unspecified; E66.9 Obesity, unspecified; I42.8 Other cardiomyopathies; I08.1 Rheumatic disorders of both mitral and tricuspid valves; I25.10 Atherosclerotic heart disease of native coronary artery without angina pectoris; Z88.8 Allergy status to other drugs, medicaments and biological substances; Z95.5 Presence of coronary angioplasty implant and graft; Z79.82 Long term (current) use of aspirin; Z11.52 Encounter for screening for COVID-19; Z68.36 Body mass index [BMI] 36.0-36.9, adult; Z87.891 Personal history of nicotine dependence; Z79.899 Other long term (current) drug therapy; Z95.810 Presence of automatic (implantable) cardiac defibrillator
CPT/HCPCS: 36415; 71045; 80048; 80053; 80076; 81003; 82947; 83735; 83880; 84132; 84484; 85025; 85027; 85610; 87428; 93005; 94760; 96374; 96375; 99285; J1650; J1940; J2270; J3010; J7614